=== PATIENT | male | born 1960 | race Caucasian/White ===

== ENCOUNTER → 2020-09-15 | Outpatient (CLI) | payer OTHER, SELFPAY | END | disposition home or self-care (01) | PROVIDERS: Visit Provider Urology | DX: N45.4 Abscess of epididymis or testis (principal) | CPT/HCPCS: 87070; 87077; 87186; 87205 ==

== ENCOUNTER → 2023-02-05 | Outpatient (CLI) | payer OTHER, SELFPAY ==
--- NOTE | 2023-02-05 14:51 | VDLE_ITS ---
Reason For Study: Left leg pain RIGHT LEFT CFV is compressible, spontaneous, phasic, GSV is normal. competent and demonstrates normal Acute deep vein thrombosis is noted in the augmentation. left CIV, EIV, CFV and FV prox-mid. It is Procedure NONCOMPRESSIBLE and dilated. Minimal venous This is a venous duplex using B-mode, color flow noted. flow and spectral Doppler. FV distal is compressible. Exam performed in department. POP V is compressible, spontaneous, phasic, A preliminary report was called and/or faxed competent and demonstrates normal to [facility] [employer]. augmentation. T/P Trunk is compressible. PTV is compressible. LT PerV is compressible. VL/Venous Duplex US, Unilateral Interpretation Summary Acute deep vein thrombosis is noted in the left external iliac vein, common fem oral vein, femoral vein. Ordering Physician: Ryan Ceja Performed By: Brittany Keller RVT
== END | disposition home or self-care (01) ==
PROVIDERS: Referring Provider Surgery Trauma Surgery; Visit Provider Surgery Trauma Surgery
DX: I82.422 Acute embolism and thrombosis of left iliac vein (principal)
CPT/HCPCS: 93971

== ENCOUNTER → 2023-02-07 | Outpatient (CLI) | payer OTHER, SELFPAY ==
--- NOTE | 2023-02-07 07:52 | CT_ITS ---
STUDY: CTA ABDOMEN AND PELVIS WITH CONTRAST REASON FOR EXAM: Male, 62 years old. Extensive DVT, assess extent -- with venous/delayed phase RADIATION DOSAGE (If Supplied By Facility): CTDIvol = ( 25.43 ) mGy, DLP = ( 2298.92 ) mGycm TECHNIQUE: Transaxial images were obtained from the dome of the diaphragm to the symphysis pubis without oral contrast. IV 100mL Isovue-370 was administered. Sagittal and coronal images were reconstructed. Individualized dose optimization techniques were used for this CT. COMPARISON: None. FINDINGS: The visualized lung bases are unremarkable. Coronary artery calcification. There is decreased attenuation of the liver consistent with steatosis. There is evidence of a pneumobilia in the left intrahepatic biliary ducts in keeping with prior cholecystectomy and possible common bile duct exploration. There are surgical clips in the gallbladder fossa consistent with a prior cholecystectomy. Normal spleen. Normal pancreas. Normal bilateral adrenal glands. 1.2 cm cyst in the anterior upper aspect of the right kidney. There is a 2.3 cm x 2.6 cm cyst in the upper pole of the left kidney. There is a 1.7 cm cyst in the anterior lower pole of the left kidney. There is a small hiatal hernia. Normal small intestine. Surgical anastomosis is seen in the sigmoid colon in keeping with the patient''s history of prior resection for diverticulitis. The appendix is visualized and appears normal. There is scattered atherosclerotic calcification of the abdominal aorta, without a demonstrated aneurysm. Normal inferior vena cava. Normal retroperitoneum. Mild degree of diffuse bladder wall thickening although the bladder is not completely distended. There are prostatic calcifications. There is a 2.2 cm x 1.9 cm heterogeneous soft tissue mass in the left inguinal region. There are degenerative changes of the visualized lumbar spine. CT/CTA Abd/Pelvis W/WO Contrast IMPRESSION: 2.2 cm x 1.9 cm heterogeneous soft tissue mass in the left inguinal region. Small bilateral inguinal lymph nodes. Bilateral renal cysts. Diffuse fatty infiltration of the liver. Status post cholecystectomy. Electronically Signed: Julio Cesar Acuña MD at 9:52 EST ,
[2023-02-07 08:36] LABS: CREATININE FINGERSTICK < 1.0 mg/dL (0.70-1.30); EGFR FINGERSTICK > 60.0000 mL/min (>60)
== END | disposition home or self-care (01) ==
PROVIDERS: Referring Provider Surgery Trauma Surgery; Visit Provider Surgery Trauma Surgery
DX: I82.429 Acute embolism and thrombosis of unspecified iliac vein (principal)
CPT/HCPCS: 74174; Q9967

== ENCOUNTER 2023-02-12 13:55 | Observation (INO) | payer OTHER, SELFPAY ==
--- NOTE | 2023-02-07 07:54 | EKG12_ITS ---
Test Reason : PRE OP Blood Pressure : / mmHG Vent. Rate : 059 BPM Atrial Rate : 059 BPM P-R Int : 188 ms QRS Dur : 108 ms QT Int : 410 ms P-R-T Axes : 061 -45 039 degrees QTc Int : 405 ms Sinus bradycardia Left axis deviation Abnormal ECG Confirmed by PAUL SANDERSON, SHIVAM ([id number]), editor sound LICHA GARCIA ([id number]) on 02/11/2023 1:56:36 P M Referred By: Ryan Ceja Confirmed By:TERRA MILLER MD
[2023-02-07 09:06] LABS: Hematocrit 42.7 % (40-54); Hemoglobin 13.5 g/dL (13.0-16.5); Mean Corp Hgb Conc 31.6 g/dL (32-36); Mean Corpuscular Hgb 29.8 pg (27.0-32.0); Mean Corpuscular Volume 94.3 fL (80-94); Mean Platelet Vol. 9.2 fl (6.2-12.0); Platelet Count 275 K/mm3 (150-450); RBC Distribution Width CV 13.3 % (11.6-14.6); Red Blood Count 4.53 M/mm3 (4.6-6.2); White Blood Count 6.1 K/mm3 (4.4-11.0)
[2023-02-07 10:11] LABS: Thyroid Stim Hormone (TSH) 1.36 uIU/mL (0.358-3.74)
[2023-02-07 10:19] LABS: Creatinine, Serum 1.19 mg/dL (0.70-1.30); EST Glomerular Filtration Rate 66 mL/min (>60); Est Glom Filt Rate - Afr Amer 80 mL/min (>60)
[2023-02-12] VITALS (14 sets, daily range): BP systolic 127–169; BP diastolic 66–94; PULSE 61–78; RESP 16–18; TEMP 36.1–37; O2SAT 94–99; BMI 31.1
[2023-02-12] MEDS: Lactated Ringers 1,000 ML 15 ML IV (06:36)
[2023-02-12 09:48] LABS: Anion Gap 2 (5-15); BUN 16 mg/dL (7-18); BUN/Creat Ratio 14.7 RATIO (10-20); Calcium,Total 9.9 mg/dL (8.5-10.1); Chloride 113 mmol/L (98-107); Creatinine, Serum 1.09 mg/dL (0.70-1.30); EST Glomerular Filtration Rate 73 mL/min (>60); Est Glom Filt Rate - Afr Amer 88 mL/min (>60); Estimated Creatinine Clearance 82.74 ml/min; Glucose 95 mg/dL (74-106); Potassium 4.4 mmol/L (3.5-5.1); Sodium Level 141 mmol/L (136-145)
[2023-02-12] MEDS: HEPARIN/D5w 25,000 UNITS 25,000 UNITS/250 ML IV.SOLN. 5 UNITS CONT INF (14:00)
--- NOTE | 2023-02-12 14:08 | PCM.OPRPT ---
Report of Operation Date of Procedure: 02/12/23 Pre-Operative Diagnosis: left iliac-femoral DVT Post-Operative Diagnosis: same Surgery/Procedure Performed:: Venogram IVC, SVC, left lower extremity IVUS IVC, bilateral common iliac, bilateral external iliac veins, left common femoral/femoral vein percutaneous mechanical thrombectomy left common iliac/external iliac/common femoral/femoral veins angioplasty stent left common/external iliac veins, left common femoral vein Surgeon: Ryan Ceja Type of Anesthesia: General Estimated Blood Loss (mL): 300 Description of Procedure: HPI: Patient is a 62-year-old male with extensive left lower extremity DVT that initially presented in September 2022. He initially was treated with anticoagulation alone with no resolution of his symptoms. He underwent attempted percutaneous thrombectomy and stenting at outside facility which was not successful at crossing the occlusions. He is presented here for second opinion efforts to treat his now chronic venous occlusive disease. He is taken now for venogram with possible mechanical thrombectomy and stenting. Description of procedure: Upon obtaining informed consent and verification correct patient procedure site patient was taken to the [facility] where he was placed under general esthesia. He was then positioned prepped and draped in usual fashion timeout is performed. Under also guidance the left femoral vein was accessed in retrograde fashion in the distal thigh with a micropuncture needle wire. This then exchanged for micropuncture sheath through which injection left lower extremity venogram was performed which revealed satisfactory placement in a highly diseased femoral vein with significant chronic thrombus and webbing. Through the micropuncture sheath a stiff Glidewire was advanced and the micropuncture sheath exchanged out for a 6 [place] Brite tip sheath. Next under outside guidance the right internal jugular vein was accessed with a micropuncture needle wire which was then exchanged out for micropuncture sheath. Through the micropuncture sheath a Bentson wire was advanced and under fluoroscopic guidance advanced into the inferior vena cava. Micropuncture sheath was then exchanged for a short 5 [place] sheath through which a Omni Flush catheter was advanced into the right common iliac vein. From this position a digital subtraction inferior vena cava venogram was performed which revealed normal caliber widely patent inferior vena cava with no sign of any acute or chronic thrombus. There was no visualization of the confluence though there was caliber change in the normal anatomic position for the IVC confluence. Through the Omni Flush catheter a short tip Amplatz wire was advanced and the Omni Flush and 5 [place] sheath exchanged out for an 8 [place] sheath. Next intravascular ultrasound probe was advanced and recorded pullback of the right external iliac vein, right common iliac vein, inferior vena cava, superior vena cava was performed. This confirmed patent vena cava and normal caliber right iliac veins with no significant compression or any evidence of thrombus. This also helped further identify the location of the confluence of the iliac veins of the vena cava. This point the patient was heparinized and repeat doses performed based on ACT results. Through the left femoral 6 [place]ian sheath a stiff Glidewire and quick cross catheter were used to traverse the subtotal occlusion segments of femoral vein until the common femoral vein was encountered which was totally occluded with significant collateral branches emptying through the pelvis. Ultimately her navigate across this total occlusion and advanced into the external leg vein followed by successful navigation to the common iliac vein and ultimately inferior vena cava. We were able to confirm presence within the vena cava with intravascular shunt probe via the IJ access site and entry at what we had suspected was the iliac vein confluence. Next the entirety of the length of the common iliac, external, common femoral, femoral vein was balloon angioplastied with a 4 mm noncompliant balloon in order to create channel enough to advance the intravascular sound probe. Next the intravascular probe is advanced over the wire and recorded pullback of the inferior vena cava, left common iliac vein, left external vein, left common femoral vein, left femoral vein was performed. This confirmed position within the true lumen of the primary vessels with no exit into any side branches or collaterals. The also revealed and further confirmed the significant chronic thrombus throughout with segments of total occlusion in some segments of subtotal occlusion with significant webbing and wall thickening. There is felt that this would be an appropriate case for the Inari Revcore mechanical thrombectomy device designed for chronic thrombus. In order to facilitate device passage the vessels were successively dilated with 8 mm followed by 10 mm noncompliant angioplasty balloons. Next the rev core device was advanced into the inferior vena cava and engaged across the entirety of the length of the area of chronic thrombus. After multiple passes with increasing diameter with each pass repeat venography revealed significant luminal gain. Intravascular ultrasound probe was then readvanced and recorded pullback performed which revealed significant luminal gain and resolution of some of the chronic thrombus however there was some segments with very resistant thrombus that did not extract with device. The Inari clot retriever bold was then advanced into the vena cava and used to further perform thrombectomy of the treated segment with some chronic thrombus returned. Repeat imaging confirmed some improvement with some continued residual chronic thrombus adherent particularly in the external iliac and common femoral veins as well as compression at the superiormost aspect of the left common iliac vein. It was felt these would respond well to angioplasty and stenting so a Bard Venovo 14 x 120 was advanced in the position with placement just cephalad to the profunda vein confluence and satisfactory coverage of the distalmost aspect of the residual disease segment. This is then deployed and then postdilated with a 10 mm angioplasty balloon. Next a Bard Venovo 16 x 120 is advanced in position with satisfactory overlap and cephalad extent at the IVC confluence. This was then deployed and postdilated with a 12 mm angioplasty balloon followed by 40 mm angioplasty balloon. Repeat venogram revealed satisfactory resolution of the chronic disease and compression of the IVC confluence. The intravascular shunt probe was then readvanced and recorded pullback performed which revealed for the most part satisfactory stent wall position with adequate stent expansion. In the common femoral vein there was some continued compression from chronic thrombus at this was repeat angioplastied with a 12 mm angioplasty balloon with satisfactory resolution. Completion venogram revealed brisk contrast transit across the stented segment with no further filling of pelvic wall collaterals as outflow for the leg. This was significantly improved over the initial imaging obtained. Radiographic interpretation: Superior vena cava normal caliber no evidence of acute or chronic thrombus or any significant luminal abnormalities. Inferior vena cava normal caliber and patent with no compression evidence of thrombus. Right external and common iliac veins patent with no significant compression or thrombus. Left femoral vein, common femoral vein, external iliac vein, common iliac vein with chronic thrombus and significant webbing throughout. Total occlusion of the common femoral vein with left lower extremity venous outflow via pelvic wall collaterals. Significant collaterals in the proximal thigh that filled into the profunda vein bypassing disease segment of femoral vein. Resolution of common iliac, external iliac, common femoral stenosis from compression and chronic thrombus with no extravasation or dissection and no residual stenosis after intervention. Brisk contrast transit crossing the stented segment as well as the contralateral iliac vein. Grafts/Implants Used: Bard Venovo [id number], Bard Venovo [id number]
--- NOTE | 2023-02-12 14:59 | CRPHASE1 ---
Patient Communication Patient Information PHII Cardiac Rehab Discussed with Patient:: Yes Guide to Cardiac Rehab Given to Patient:: Yes Cardiac Rehab Facility Choice List Given to Patient:: Yes Communication to Cardiac Rehab Superintendent Production:: [facility] Phase II Cardiac Rehab:: Yes Sessions:: 36 sessions - 3 days/wk, 12 weeks Cardiac Rehabilitation Info Program Information Cardiac Rehabilitation Program Information: Cardiac Rehab The cardiac rehab team at [facility] consists of highly skilled exercise physiologists, nurses, respiratory therapists and physicians working together with you. Our purpose is to help you have a full recovery and achieve the goals you set for yourself. Over the years many of our patients have returned to activities they assumed they would never do again! We can help restore your confidence and motivation to make lifestyle changes that can have a significant impact on your health and quality of life! We can help answer questions and concerns you may have about exercise, lifestyle, medications, diet, stress and anxiety which are common following a hospitalization. WE monitor ECG and vital signs during exercise and discuss your progress with you and report to your physician(s). Cardiac Rehab is proven to help reduce readmissions, improve functional capacity and lower recurrence of problems with your heart. Our Cardiac Rehab program is Certified by the [place] [employer]monary [employer] (AACVPR) and Accredited by the [place] [employer] through our [facility]. You can contact us at . We invite you to call us with your questions or to get started in our program. If you have other questions or concerns be sure to ask your physician/provider during your follow-up visit. WE look forward to seeing you!
--- NOTE | 2023-02-12 15:00 | CRPH1.INSTRU ---
General Education Discussed with Patient CAD and cardiac anatomy and function:: Patient communicates acknowledgment Explanation of diagnoses and procedures:: Patient communicates acknowledgment Sign/Symptoms of MS:: Patient communicates acknowledgment Antiplatelet therapy: Patient communicates acknowledgment Proper use of NTG-SL: Patient communicates acknowledgment Emergency procedures and activation of EMS: Patient communicates acknowledgment Compliance of all prescribed medications: Patient communicates acknowledgment Smoking Risk Factors Patient Nicotine/Smoking Risk Factors Are:: Non-smoker Dyslipidemia Risk Factors Patient Dyslipidemia Risk Factors Are:: Total Cholesterol, Triglycerides, HDL and LDL Recommendations Recommendations Include:: Lipid profile provided, Reviewed NCEP/ATP guidelines and Therapeutic Lifestyle Change dietary guidelines Response Code Dyslipidemia Response Code:: Patient communicates acknowledgment Overweight/Obesity Risk Factors Patient Overweight/Obesity Risk Factors Are:: Obesity - > or = 30 Recommendations Recommendations Include:: Weight loss of 5-10%, Reduced calorie diet and Exercise 5-7 times/week Response Code Overweight/Obesity:: Patient communicates acknowledgment Hypertension Risk Factors Patient Hypertension Risk Factors Are:: No documented hx of HTN Diabetes Risk Factors Patient Diabetes Risk Factors Are:: No documented hx of diabetes Metabolic Syndrome Risk Factors Patient Metabolic Syndrome Risk Factors Are [3 of 5]:: Fasting blood sugar > 100 mg/dL, Waist circumference > 35 [female] or 40 [male], High triglyceride >150 and Low HDL <40 [male] or < 50 [female] Recommendations Recommendations Include:: Reinforce compliance to risk factor modifications and Encouraged follow-up with Primary Care Physician Response Code Metabolic Syndrome Response Code:: Patient communicates acknowledgment Sedentary Risk Factors Patient Sedentary Risk Factors Are:: Lack of regular exercise Recommendations Recommendations Include:: Aerobic exercise 5-7 times/week for 20-30 minutes continuously, Benefits of regular exercise, Discussed home walking program and Monitored Outpatient Cardiac Rehab Response Code Sedentary Response Code:: Patient communicates acknowledgment Stress Recommendations Recommendations Include:: Identification of stressors, and assessment of coping skills and Stress management techniques Response Code Stress Response Code:: Patient communicates acknowledgment
[2023-02-12] MEDS: 0.45% Normal Saline 1,000 ML 100 ML IV (17:23)
[2023-02-12] MEDS: HYDROmorphone Inj 0.2 MG/ML SYRINGE 0.200000000000000011 MG IV (18:32)
[2023-02-12] MEDS: 0.9% Saline Lock 10 ML Syringe IV ×2 (18:32→20:19)
[2023-02-12 19:15] LABS: Partial Thromboplast Time 48.7 Seconds (24.1-36.2)
[2023-02-12] MEDS: Ondansetron 4 MG/2 ML Vial IV (20:19)
[2023-02-12] MEDS: HEPARIN/D5w 25,000 UNITS 25,000 UNITS/250 ML IV.SOLN. 6 UNITS CONT INF (20:45)
[2023-02-13 01:09] VITALS: BP 140/70; PULSE 70; RESP 18; TEMP 36.8; O2SAT 97
[2023-02-13] MEDS: Aspirin 81 MG TAB.CHEW 162 MG PO (01:25)
[2023-02-13] MEDS: oxyCODONE 5 MG Tablet PO (01:25)
[2023-02-13] MEDS: Clopidogrel Bisulfate 300 MG Tablet PO (01:25)
[2023-02-13] MEDS: 0.45% Normal Saline 1,000 ML 100 ML IV (03:00)
[2023-02-13 03:34] LABS: Absolute Lymphocyte Count 0.89 X10^3/uL (0.83-4.51); Absolute Neutrophil Count 5.5 X10^3/uL (2.0-7.7); Basophil# 0.02 X10^3/uL; Basophil% 0.3 % (0-1); Eosinophil# 0.06 X10^3/uL; Eosinophils% 0.8 % (0-5); Hemoglobin 12.3 g/dL (13.0-16.5); Lymphocyte # 0.89 X10^3/ul (0.83-4.51); Lymphocyte % 12.6 % (19-41); Mean Corp Hgb Conc 32.4 g/dL (32-36); Mean Corpuscular Volume 92.7 fL (80-94); Mean Platelet Vol. 9.6 fl (6.2-12.0); Monocyte% 8.5 % (0-10); NRBC Flagged by Analyzer 0 % (0-5); Neutrophil # 5.47 X10^3/uL (2.7-7.7); Neutrophil % 77.5 % (47-70); Platelet Count 202 K/mm3 (150-450); RBC Distribution Width CV 13.4 % (11.6-14.6); RBC Distribution Width SD 45.6 fl (35.1-43.9); White Blood Count 7.1 K/mm3 (4.4-11.0)
[2023-02-13 03:52] LABS: Partial Thromboplast Time 37.4 Seconds (24.1-36.2)
[2023-02-13 04:14] LABS: ACT Activated Clotting Time 217 sec (74-137)
[2023-02-13 04:15] LABS: ACT Activated Clotting Time 201 sec (74-137)
[2023-02-13 04:15] LABS: ACT Activated Clotting Time 217 sec (74-137)
[2023-02-13 04:16] LABS: ACT Activated Clotting Time 212 sec (74-137)
[2023-02-13 04:20] VITALS: BP 131/71; PULSE 65; RESP 18; TEMP 36.5; O2SAT 96
[2023-02-13] MEDS: Acetaminophen 500 MG Tablet 1000 MG PO (05:04)
[2023-02-13] MEDS: Levothyroxine 100 MCG Tablet PO (05:05)
[2023-02-13 08:20] VITALS: BP 133/75; PULSE 65; RESP 18; TEMP 36.5; O2SAT 100
[2023-02-13] MEDS: Clopidogrel Bisulfate 75 MG Tablet PO (08:31)
[2023-02-13] MEDS: Fenofibrate 145 MG Tablet PO (08:31)
[2023-02-13] MEDS: Aspirin E.C. 81 MG Tablet PO (08:31)
[2023-02-13 09:50] VITALS: O2SAT 97
--- NOTE | 2023-02-13 12:18 | PCM.PN.SRG ---
Subjective Subjective Mr. Blanca is s/p venogram with thrombectomy and L iliac vein stenting performed under general anesthesia yesterday. This morning he is feeling good. Had nausea overnight which has resolved. He has some soreness at the access sites, but not too bothersome. No bleeding. Voiding without difficulty. He denies any numbness or pain into left foot. Objective Data Objective Data Vital Signs: Vital Signs Temp Pulse Resp BP Pulse Ox O2 Del Method 97.7 F L 65 18 133/75 H 100 Room Air 02/13/23 08:20 02/13/23 08:20 02/13/23 08:20 02/13/23 08:20 02/13/23 08:20 02/13/23 08:20 Oxygen Delivery Method Room Air Weight: 242 lb 8.136 oz Body Mass Index (BMI) 31.1 Intake & Output: Intake and Output for Last 24 Hours 02/11/23 02/12/23 02/13/23 23:59 23:59 23:59 Intake Total 205.50 / 205.50 1584.84 / 1584.84 Output Total 650 / 650 300 / 300 Balance -444.50 / -444.50 1284.84 / 1284.84 Lab / Micro Data 02/13/23 02:50 02/12/23 09:30 Labs: Laboratory Results - last 24 hr 02/12/23 10:15: Activated Clotting Time 217 H 02/12/23 10:55: Activated Clotting Time 201 H 02/12/23 11:30: Activated Clotting Time 217 H 02/12/23 12:15: Activated Clotting Time 212 H 02/12/23 17:25: APTT 72.0 H 02/12/23 18:50: APTT 48.7 H 02/13/23 02:50: WBC 7.1, RBC 4.10 L, Hgb 12.3 L, Hct 38.0 L, MCV 92.7, MCH 30.0, MCHC 32.4, RDW Std Deviation 45.6 H, RDW Coeff of Mookie 13.4, Plt Count 202, MPV 9.6, Immature Gran % (Auto) 0.300, Neut % (Auto) 77.5 H, Lymph % (Auto) 12.6 L, [place] % (Auto) 8.5, Eos % (Auto) 0.8, Baso % (Auto) 0.3, Absolute Neuts (auto) 5.5, Absolute Lymphs (auto) 0.89, Nucleated RBC % 0, APTT 37.4 H 02/13/23 11:22: APTT 47.0 H Physical Exam Const alert, oriented x3 and no apparent distress General Appearance: cooperative and comfortable Eyes EOMs intact bilaterally General Eye: normal appearance of both eyes Neck full ROM Neck Narrative: Right IJ access site with minimal bruising and swelling. No bleeding, redness, warmth, drainage. General: normal visual inspection Resp normal respiratory effort Effort and Inspection: able to speak in complete sentences; Negative for respiratory distress, labored, stridor, retractions or audible wheezes Cardio regular rate and regular rhythm Extremity Extremity Narrative: R groin access site with mild bruising, minimal swelling. No erythema, warmth, drainage, bleeding. L thigh access site with no significant bruising, swelling, redness, warmth, drainage, bleeding. Neuro oriented x3, CN's II-XII intact bilaterally, moves all extremities and no focal motor deficits Speech: speech normal Psych mental status grossly normal, affect normal, speech normal and activity/motor behavior normal Assessment & Plan Assessment/Plan (1) Ileofemoral deep vein thrombosis: QUALIFIERS: Laterality: left Qualified Code(s): I82.422 - Acute embolism and thrombosis of left iliac vein PLAN: Patient is doing well this morning. No bleeding from access sites while on therapeutic heparin, sutures are intact. He reports his leg already seems less swollen and overall feeling good. Minimal pain at the access site. Voiding without difficulty and tolerating diet. Will d/c heparin now. Restart Xarelto in 1 hour and then can discharge home after that. He has outpatient follow-up scheduled in the office.
[2023-02-13 12:20] VITALS: BP 123/67; PULSE 55; RESP 18; TEMP 36.6; O2SAT 98
--- NOTE | 2023-02-13 13:45 | DS.PCM_ITS ---
Providers Date of Admission: 02/12/23 Primary Care Physician: CHERYL BASILIO Reason For Visit: POSSIBLE THROMDECTOMY Diagnosis Discharge Diagnosis (1) Ileofemoral deep vein thrombosis: Status: Acute Code(s): I82.429 - Acute embolism and thrombosis of unspecified iliac vein Qualifiers: Laterality: left Qualified Code(s): I82.422 - Acute embolism and thrombosis of left iliac vein Medications at Discharge Home Medications cabergoline 0.5 mg tablet 0.5 mg PO 2XW 01/30/23 fenofibrate 160 mg tablet 160 mg PO DAILY 01/30/23 levothyroxine 100 mcg capsule 100 mcg PO DAILY 01/30/23 niacin 1,000 mg tablet,extended release 1,000 mg PO QHS 01/30/23 rivaroxaban 20 mg tablet 20 mg PO QPM 01/30/23 rosuvastatin 10 mg tablet (Crestor) 10 mg PO DAILY 01/30/23 tadalafil 5 mg tablet 5 mg PO DAILY 01/30/23 tamsulosin 0.4 mg capsule 0.4 mg PO DAILY 01/30/23 aspirin 81 mg tablet,delayed release 81 mg PO BREAKFAST #30 tabs 02/13/23 clopidogrel 75 mg tablet 75 mg PO DAILY #30 tabs 02/13/23 oxycodone 5 mg tablet 5 mg PO Q8H PRN PRN Pain Score 4-10 2 days #6 tabs 02/13/23 Hospital Course Operations - (Venogram with thrombectomy and iliac vein stenting) Summary of Care Provided Hospital Course: Mr. Blanca is a 62 y/o male who underwent venogram with thrombectomy and iliac vein stenting on 02/12/2023 to address iliofemoral DVT. He tolerated the procedure well. Postoperatively, he was routinely kept for observation and for heparin bridge back to Xarelto. He has remained hemodynamically stable. Following iliac vein stenting, he was initiated on ASA and Plavix which he will continue to take in addition to his home Xarelto. He tolerated therapeutic heparin with no bleeding complications and was transitioned back to Xarelto. The access sites were all satisfactory in appearance. He has been able to tolerate a normal diet and void without difficulty. His postoperative pain is well controlled. He is medically stable for discharge home. He has scheduled outpatient follow-up. Physical Exam Const alert, oriented x3 and no apparent distress General Appearance: cooperative and comfortable Eyes EOMs intact bilaterally General Eye: normal appearance of both eyes Neck full ROM Neck Narrative: Right IJ access site with suture intact and minimal bruising and swelling. No bleeding, redness, warmth, drainage. General: normal visual inspection Resp normal respiratory effort Effort and Inspection: able to speak in complete sentences; Negative for respiratory distress, labored, stridor, retractions or audible wheezes Cardio regular rate and regular rhythm Extremity Extremity Narrative: R groin access site with suture intact and mild bruising, minimal swelling. No erythema, warmth, drainage, bleeding. L thigh access site with suture intact and no significant bruising, swelling, redness, warmth, drainage, bleeding. Neuro oriented x3, CN's II-XII intact bilaterally, moves all extremities and no focal motor deficits Speech: speech normal Psych mental status grossly normal, affect normal, speech normal and activity/motor behavior normal Weight / BMI Weight Weight: 242 lb 8.136 oz Body Mass Index (BMI) 31.1 ABG / Lab / Microbiology Data 02/13/23 02:50 02/12/23 09:30 Laboratory: Laboratory Results - last 24 hr 02/12/23 10:15: Activated Clotting Time 217 H 02/12/23 10:55: Activated Clotting Time 201 H 02/12/23 11:30: Activated Clotting Time 217 H 02/12/23 12:15: Activated Clotting Time 212 H 02/12/23 17:25: APTT 72.0 H 02/12/23 18:50: APTT 48.7 H 02/13/23 02:50: WBC 7.1, RBC 4.10 L, Hgb 12.3 L, Hct 38.0 L, MCV 92.7, MCH 30.0, MCHC 32.4, RDW Std Deviation 45.6 H, RDW Coeff of Mookie 13.4, Plt Count 202, MPV 9.6, Immature Gran % (Auto) 0.300, Neut % (Auto) 77.5 H, Lymph % (Auto) 12.6 L, Travis % (Auto) 8.5, Eos % (Auto) 0.8, Baso % (Auto) 0.3, Absolute Neuts (auto) 5.5, Absolute Lymphs (auto) 0.89, Nucleated RBC % 0, APTT 37.4 H 02/13/23 11:22: APTT 47.0 H D/C Instructions Discharge Diet: No restrictions May shower in (days): 1 Weight Bearing Status: Weight bearing as tolerated Lifting Restricted to (Lbs): 20 Lifting Restrictions: Do not lift greater than 20 pounds for 2 weeks Call your doctor if your incision/area has: Sudden Increased Bleeding, Increased Pain/ Swelling and Foul Smelling Discharge Call your doctor if you observe: Fever of 101 or Higher and Uncontrolled pain Additional Instructions: You have 3 access sites: right neck, right groin, and left thigh. The access sites were closed with 1 suture each. The sutures should remain in place for at least 1 week. It is okay to leave these sites open to air. You may shower. It is okay for soap and water to rinse over these sites, pat to dry. Do not submerge the access sites in water such as to take a bath, go swimming, etc for 2 weeks. Do not lift greater than 20 pounds for 2 weeks. Otherwise, you may proceed with activity as tolerated. You are to continue taking Xarelto 20mg tablet once daily as you had been prior to the procedure. Please call the office if/when you need a refill. We have added 2 new medications: Aspirin 81mg tablet to be taken by mouth once daily and Plavix 75mg tablet to be taken by mouth once daily. The Aspirin 81mg tablets can be purchased over the counter. The Plavix 75mg tablets are a prescription which has been sent to your pharmacy. You are to continue to take the Xarelto, Plavix, and Aspirin. You have a follow-up appointment in the office on 03/06/23. The office will call you to schedule a 1 week follow-up to have your sutures removed. If you have any questions/concerns or if you need to change your appointment time please contact the office at [phone]. Meaningful Use Info Meaningful Use Diagnoses (Choose all that apply): VTE VTE Anticoag overlap given w/in hospital stay or rx'd at dc?: Yes Pt receive overlap for 5 days?: Yes Discharge Plan Admission Admit Date/Time: 02/12/23 13:55 Primary Reason for Your Visit: Venogram with thrombectomy and iliac vein stenting Attending Provider: Ryan Ceja Primary Care Provider: CHERYL BASILIO Consulting Providers: Fabio Day Instructions Additional Instructions / Restrictions: You have 3 access sites: right neck, right groin, and left thigh. The access sites were closed with 1 suture each. The sutures should remain in place for at least 1 week. It is okay to leave these sites open to air. You may shower. It is okay for soap and water to rinse over these sites, pat to dry. Do not submerge the access sites in water such as to take a bath, go swimming, etc for 2 weeks. Do not lift greater than 20 pounds for 2 weeks. Otherwise, you may proceed with activity as tolerated. You are to continue taking Xarelto 20mg tablet once daily as you had been prior to the procedure. Please call the office if/when you need a refill. We have added 2 new medications: Aspirin 81mg tablet to be taken by mouth once daily and Plavix 75mg tablet to be taken by mouth once daily. The Aspirin 81mg tablets can be purchased over the counter. The Plavix 75mg tablets are a prescription which has been sent to your pharmacy. You are to continue to take t he Xarelto, Plavix, and Aspirin. You have a follow-up appointment in the office on 03/06/23. The office will call you to schedule a 1 week follow-up to have your sutures removed. If you have any questions/concerns or if you need to change your appointment time please contact the office at [phone]. Discharge Orders/Prescriptions Prescriptions: New clopidogrel 75 mg Tablet 75 mg PO DAILY Qty: 30 2RF aspirin 81 mg Tablet,Delayed Release (Dr/Ec) 81 mg PO BREAKFAST Qty: 30 0RF oxycodone 5 mg Tablet 5 mg PO Q8H PRN PRN (Reason: Pain Score 4-10) 2 Days Qty: 6 0RF Continued cabergoline 0.5 mg tablet 0.5 mg PO 2XW Rx Instructions: take 1 1/2 tab by mouth on and Sat fenofibrate 160 mg tablet 160 mg PO DAILY levothyroxine 100 mcg capsule 100 mcg PO DAILY niacin 1,000 mg tablet extended release 1,000 mg PO QHS rivaroxaban 20 mg tablet 20 mg PO QPM Rx Instructions: must administer with evening meal rosuvastatin [Crestor] 10 mg tablet 10 mg PO DAILY tadalafil 5 mg tablet 5 mg PO DAILY tamsulosin 0.4 mg capsule 0.4 mg PO DAILY Other Ambulatory Orders: 12 Lead EKG (Routine) Timeframe: 20230207 Location: None Selected Ordered By: Dr. Fabio Day Disposition Disposition (needs filled in before D/C Order can be placed): Home, Self Care
[2023-02-13] MEDS: Rivaroxaban 20 MG Tablet PO (15:01)
--- NOTE | 2023-02-13 15:55 | PHA.DC_ITS ---
Pharmacy [facility] has performed discharge medication reconciliation and counseling for this patient. 1. ASPIRIN 81MG PO DAILY 2. CLOPIDOGREL 75MG PO DAILY 3. OXYCODONE 5MG PO Q8H PRN PAIN The patient's discharge medication list was reviewed for discrepancies and discrepancies were resolved. The patient was counseled on the following discharge medications and changes in medications for homegoing were reviewed. The Reason for Use, instructions for use, and potential side effects were reviewed for all new medications. The patient's questions regarding all of their medications were answered. The patient was able to verbally demonstrate an understanding of their discharge medications. Medications at Discharge Home Medications cabergoline 0.5 mg tablet 0.5 mg PO 2XW 01/30/23 fenofibrate 160 mg tablet 160 mg PO DAILY 01/30/23 levothyroxine 100 mcg capsule 100 mcg PO DAILY 01/30/23 niacin 1,000 mg tablet,extended release 1,000 mg PO QHS 01/30/23 rivaroxaban 20 mg tablet 20 mg PO QPM 01/30/23 rosuvastatin 10 mg tablet (Crestor) 10 mg PO DAILY 01/30/23 tadalafil 5 mg tablet 5 mg PO DAILY 01/30/23 tamsulosin 0.4 mg capsule 0.4 mg PO DAILY 01/30/23 aspirin 81 mg tablet,delayed release 81 mg PO BREAKFAST #30 tabs 02/13/23 clopidogrel 75 mg tablet 75 mg PO DAILY #30 tabs 02/13/23 oxycodone 5 mg tablet 5 mg PO Q8H PRN PRN Pain Score 4-10 2 days #6 tabs 02/13/23
[2023-02-13 16:20] VITALS: BP 125/68; PULSE 60; RESP 18; TEMP 36.6; O2SAT 99
== END 2023-02-13 17:38 | disposition home or self-care (01) ==
LOC: SDC 15:22 → PCU 15:22
PROVIDERS: Anesthesiology; Physician Assistant; Admitting Provider Surgery Trauma Surgery; Referring Provider Surgery Trauma Surgery; Visit Provider Surgery Trauma Surgery
DX: I82.422 Acute embolism and thrombosis of left iliac vein (principal); I82.412 Acute embolism and thrombosis of left femoral vein; Z79.899 Other long term (current) drug therapy; Z79.01 Long term (current) use of anticoagulants; Z79.890 Hormone replacement therapy; Z87.891 Personal history of nicotine dependence; E78.00 Pure hypercholesterolemia, unspecified; Z86.14 Personal history of Methicillin resistant Staphylococcus aureus infection; R00.1 Bradycardia, unspecified; R94.31 Abnormal electrocardiogram [ECG] [EKG]; I87.1 Compression of vein
CPT/HCPCS: 36005; 36010; 36415; 37187; 37238; 37239; 37252; 37253; 75820; 75825; 75827; 76937; 80048; 82565; 84443; 85025; 85027; 85347; 85730; 86850; 86900; 86901; 93005; 94668; 96365; 96366; 96375; 99252; C1725; C1753; C1757; C1769; C1894; J7120; Q9967; A4216; C1876; C1887; G0463; J2405

== ENCOUNTER → 2023-03-21 | Outpatient (CLI) | payer OTHER, SELFPAY ==
[2023-03-21 13:09] LABS: Cholesterol 153 mg/dL (200); High Density Lipoprotein 37 mg/dL; PSA,Total - Annual Screen 0.34 ng/mL (0.00-4.00); Triglycerides 141 mg/dL; Very Low Density Lipoprotein 28 mg/dL (5-40)
[2023-03-21 13:48] LABS: AST(SGOT) 21 U/L (15-37); Alanine Aminotransfer ALT/SGPT 23 U/L (16-61); Albumin, Serum 4.3 g/dL (3.2-5.0); Alkaline Phosphatase 57 U/L (45-117); Bilirubin, Direct 0.09 mg/dL (0.00-0.30); Globulin 3.7 g/dL (2.2-4.2)
[2023-03-21 13:51] LABS: Hemoglobin A1c 5.3 % (3.8-5.6)
== END | disposition home or self-care (01) ==
LOC: BIMLAB 09:37
PROVIDERS: PCP Nurse Practitioner; Referring Provider Nurse Practitioner; Visit Provider Nurse Practitioner
DX: K76.0 Fatty (change of) liver, not elsewhere classified (principal); E78.00 Pure hypercholesterolemia, unspecified; Z12.5 Encounter for screening for malignant neoplasm of prostate
CPT/HCPCS: 36415; 80061; 80076; 83036; 84153; G0103

== ENCOUNTER → 2023-05-09 | Outpatient (CLI) | payer OTHER, SELFPAY ==
[2023-05-09 16:15] LABS: Mucous, Urine 0 SEEN /hpf (<or=2+); Red Blood Cells-Urine 0 SEEN /hpf (0-5)
[2023-05-09 16:47] LABS: Color, Urine Yellow (Yellow); Glucose, Dipstick Normal (Normal); Ketone-Dipstick Negative (Negative); Leukocyte Esterase-Dipstick 25 /ul (Negative); Nitrite-Dipstick Negative (Negative); Occult Blood-Urine 10 /ul (Negative); Protein-Dipstick Negative (Negative); Specific Gravity, Urine 1.015 (1.002-1.030); Urine Bilirubin Dipstick Negative (Negative); Urine Clarity Clear (Clear); Urine Urobilinogen Normal (Normal); Urine pH 6.5 (5.0 - 8.0)
[2023-05-09 17:23] LABS: Bacteria RARE /hpf (None Seen); Squamous Epithelial Cells - UA 0-5 SEEN /hpf (0-5); White Blood Cells 0-5 SEEN /hpf (0-5)
== END | disposition home or self-care (01) ==
LOC: LAB.FUTURE 16:14 → LABSPEC 16:15
PROVIDERS: PCP Nurse Practitioner; Visit Provider Physician Assistant
DX: N23 Unspecified renal colic (principal)
CPT/HCPCS: 81001; 87077; 87086; 87088

== ENCOUNTER → 2023-05-28 | Outpatient (CLI) | payer OTHER, SELFPAY ==
[2023-05-28 10:54] LABS: Bacteria 0 SEEN /hpf (None Seen); Mucous, Urine 0 SEEN /hpf (<or=2+); Red Blood Cells-Urine 0 SEEN /hpf (0-5); White Blood Cells 0 SEEN /hpf (0-5)
[2023-05-28 12:28] LABS: Color, Urine Yellow (Yellow); Glucose, Dipstick Normal (Normal); Ketone-Dipstick Negative (Negative); Leukocyte Esterase-Dipstick Negative /ul (Negative); Nitrite-Dipstick Negative (Negative); Occult Blood-Urine Negative /ul (Negative); Protein-Dipstick 15 mg/dl (Negative); Specific Gravity, Urine 1.015 (1.002-1.030); Urine Bilirubin Dipstick Negative (Negative); Urine Clarity Clear (Clear); Urine Urobilinogen Normal (Normal)
[2023-05-28 12:38] LABS: Squamous Epithelial Cells - UA 0-5 SEEN /hpf (0-5)
== END | disposition home or self-care (01) ==
LOC: LABSPEC 10:52
PROVIDERS: PCP Nurse Practitioner; Referring Provider Nurse Practitioner; Visit Provider Nurse Practitioner
DX: R10.9 Unspecified abdominal pain (principal)
CPT/HCPCS: 81001; 87086

== ENCOUNTER → 2023-06-06 | Outpatient (CLI) | payer OTHER, SELFPAY ==
[2023-06-06 11:34] LABS: Bacteria 0 SEEN /hpf (None Seen); Mucous, Urine 0 SEEN /hpf (<or=2+); Red Blood Cells-Urine 0 SEEN /hpf (0-5); Squamous Epithelial Cells - UA 0 SEEN /hpf (0-5); White Blood Cells 0 SEEN /hpf (0-5)
[2023-06-06 12:05] LABS: Absolute Lymphocyte Count 0.81 X10^3/uL (0.83-4.51); Absolute Neutrophil Count 4.1 X10^3/uL (2.0-7.7); Basophil# 0.05 X10^3/uL; Basophil% 0.9 % (0-1); Eosinophils% 1.8 % (0-5); Hematocrit 45.6 % (40-54); Hemoglobin 14.9 g/dL (13.0-16.5); Lymphocyte # 0.81 X10^3/ul (0.83-4.51); Lymphocyte % 14.3 % (19-41); Mean Corp Hgb Conc 32.7 g/dL (32-36); Mean Corpuscular Hgb 28.9 pg (27.0-32.0); Mean Corpuscular Volume 88.5 fL (80-94); Mean Platelet Vol. 9.5 fl (6.2-12.0); Monocyte% 10.6 % (0-10); NRBC Flagged by Analyzer 0 % (0-5); Neutrophil # 4.08 X10^3/uL (2.7-7.7); Neutrophil % 71.7 % (47-70); Platelet Count 237 K/mm3 (150-450); RBC Distribution Width CV 13.5 % (11.6-14.6); RBC Distribution Width SD 43.7 fl (35.1-43.9); Red Blood Count 5.15 M/mm3 (4.6-6.2); White Blood Count 5.7 K/mm3 (4.4-11.0)
[2023-06-06 12:34] LABS: ALB/GLOB Ratio 1.1 RATIO (0.9-2.4); AST(SGOT) 20 U/L (15-37); Alanine Aminotransfer ALT/SGPT 19 U/L (16-61); Albumin, Serum 4.3 g/dL (3.2-5.0); Alkaline Phosphatase 53 U/L (45-117); Anion Gap 2 (5-15); BUN 17 mg/dL (7-18); BUN/Creat Ratio 13.3 RATIO (10-20); Calcium,Total 10.9 mg/dL (8.5-10.1); Chloride 109 mmol/L (98-107); Creatinine, Serum 1.28 mg/dL (0.70-1.30); EST Glomerular Filtration Rate 61 mL/min (>60); Est Glom Filt Rate - Afr Amer 73 mL/min (>60); Globulin 3.9 g/dL (2.2-4.2); Glucose 95 mg/dL (74-106); Potassium 4.3 mmol/L (3.5-5.1); Protein, Total 8.2 g/dL (6.4-8.2); Sodium Level 136 mmol/L (136-145)
[2023-06-06 15:50] LABS: Color, Urine Yellow (Yellow); Glucose, Dipstick Normal (Normal); Ketone-Dipstick Negative (Negative); Leukocyte Esterase-Dipstick Negative /ul (Negative); Nitrite-Dipstick Negative (Negative); Occult Blood-Urine Negative /ul (Negative); Protein-Dipstick Negative (Negative); Specific Gravity, Urine 1.015 (1.002-1.030); Urine Bilirubin Dipstick Negative (Negative); Urine Clarity Clear (Clear); Urine Urobilinogen Normal (Normal)
== END | disposition home or self-care (01) ==
LOC: BIMLAB 11:33
PROVIDERS: PCP Nurse Practitioner; Referring Provider Nurse Practitioner; Visit Provider Nurse Practitioner
DX: R10.9 Unspecified abdominal pain (principal)
CPT/HCPCS: 36415; 80053; 81001; 85025; 87086

== ENCOUNTER → 2023-06-10 | Outpatient (CLI) | payer OTHER, SELFPAY ==
[2023-06-10 15:41] LABS: Anion Gap 5 (5-15); BUN 20 mg/dL (7-18); BUN/Creat Ratio 16.8 RATIO (10-20); Calcium,Total 10.3 mg/dL (8.5-10.1); Chloride 107 mmol/L (98-107); Creatinine, Serum 1.19 mg/dL (0.70-1.30); EST Glomerular Filtration Rate 66 mL/min (>60); Est Glom Filt Rate - Afr Amer 80 mL/min (>60); Glucose 92 mg/dL (74-106); Potassium 4.1 mmol/L (3.5-5.1); Sodium Level 136 mmol/L (136-145)
== END | disposition home or self-care (01) ==
LOC: LAB 13:37
PROVIDERS: PCP Nurse Practitioner; Referring Provider Urology; Visit Provider Urology
DX: Z12.5 Encounter for screening for malignant neoplasm of prostate (principal); R10.84 Generalized abdominal pain
CPT/HCPCS: 36415; 80048

== ENCOUNTER → 2023-06-18 | Outpatient (CLI) | payer OTHER, SELFPAY ==
--- NOTE | 2023-06-18 11:50 | US_ITS ---
STUDY: RENAL ULTRASOUND - COMPLETE REASON FOR EXAM: Male, 62 years old. ABD PAIN TECHNIQUE: Ultrasound evaluation of the kidneys was performed with real-time and static dale-scale imaging. COMPARISON: None. FINDINGS: RIGHT KIDNEY: Normal location of the right kidney, which is normal in size. The right kidney measures 11.5 cm x 6.1 cm x 6.1 cm. There is a normal cortex of the right kidney. The renal cortex measures 1.3 cm. 3 renal cysts are seen. The largest measures 1.7 cm x 1.7 cm x 1.3 cm. There are no right renal calculi. There is no right hydronephrosis. DISTAL RIGHT URETER: There is non-visualization of the distal right ureter. There is no demonstrated right ureterovesical junction calculus. There is a visualized right ureteral jet. LEFT KIDNEY: Normal location of the left kidney, which is normal in size. The left kidney measures 12 cm x 4.3 cm x 5.7 cm. There is a normal cortex of the left kidney. The renal cortex measures 2 cm. 3 renal cysts are seen. The largest measures 2 cm x 2.1 sided by 2.4 cm. There are no left renal calculi. There is no left hydronephrosis. DISTAL LEFT URETER: There is non-visualization of the distal left ureter. There is no demonstrated left ureterovesical junction calculus. There is a visualized left ureteral jet. BLADDER: The distended urinary bladder has a volume of 108 ml. There is a normal wall thickness of the distended urinary bladder. There is no demonstrated mass within the urinary bladder. There are no demonstrated bladder calculi. US/Kidney and Bladder IMPRESSION: Bilateral renal cysts. Electronically Signed: Julio Cesar Acuña MD at 15:41 EDT ,
== END | disposition home or self-care (01) ==
LOC: US 11:50
PROVIDERS: PCP Nurse Practitioner; Referring Provider Urology; Visit Provider Urology
DX: R10.84 Generalized abdominal pain (principal)
CPT/HCPCS: 76770

== ENCOUNTER → 2023-06-21 | Outpatient (CLI) | payer OTHER, SELFPAY ==
--- NOTE | 2023-06-21 07:26 | CT_ITS ---
STUDY: CT ABDOMEN AND PELVIS WITH AND WITHOUT CONTRAST REASON FOR EXAM: Male, 62 years old. pyelonephritis , with urogram RADIATION DOSAGE (If Supplied By Facility): CTDIvol = ( 21.62 ) mGy, DLP = ( 4026.85 ) mGycm TECHNIQUE: Transaxial images were obtained from the dome of the diaphragm to the symphysis pubis without oral contrast. isovue 370 100 ml was administered. Sagittal and coronal images were reconstructed. Individualized dose optimization techniques were used for this CT. COMPARISON: Renal ultrasound 06/18/2023 FINDINGS: The visualized lung bases are unremarkable. The visualized portions of the heart are within normal limits. There is decreased attenuation of the liver consistent with steatosis. There are surgical clips in the gallbladder fossa consistent with a prior cholecystectomy. Normal spleen. Normal pancreas. Normal bilateral adrenal glands. Normal right kidney. Normal left kidney. Multiple bilateral small renal cysts with the largest measuring 2 cm in the upper pole left kidney. Normal visualized stomach. Normal small intestine. Suspect resection of the sigmoid colon with an anastomosis in the mid sigmoid colon. The appendix is visualized and appears normal. Normal abdominal aorta. Normal inferior vena cava. Vascular stent within the left external and common iliac veins. Normal retroperitoneum. Normal urinary bladder. There are prostatic calcifications. Normal abdominal wall. Mild levoscoliosis lumbar spine. CT/CT Abd/Pelvis W/WO Contrast IMPRESSION: No acute abnormality. Bilateral small renal cysts. Electronically Signed: Corby Packer MD at 0:17 EDT ,
== END | disposition home or self-care (01) ==
LOC: CT 07:24
PROVIDERS: PCP Nurse Practitioner; Referring Provider Nurse Practitioner; Visit Provider Nurse Practitioner
DX: R10.9 Unspecified abdominal pain (principal)
CPT/HCPCS: 74178; Q9967

== ENCOUNTER → 2023-07-03 | Outpatient (CLI) | payer OTHER, SELFPAY ==
--- NOTE | 2023-07-03 12:46 | VDLE_ITS ---
Reason For Study: LLE Swelling / HX DVT RIGHT LEFT CFV is compressible, spontaneous, phasic, Stent noted in prox CFV. competent and demonstrates normal Acute on Chronic deep vein thrombosis is augmentation. noted in the CFV. It is dilated and Procedure NONCOMPRESSIBLE. This is a venous duplex using B-mode, color Unable to visualize flow in pulsed wave or flow and spectral Doppler. color doppler within the vessel. Exam performed in department. FV is PARTIALLY COMPRESSIBLE with The exam was diagnostic. intraluminal echoes noted throughout. A preliminary report was called and/or faxed Diminished flows noted in pulsed wave and to Dr. Ceja. color doppler. POP V is PARTIALLY COMPRESSIBLE with intraluminal echoes noted throughout. Continuous flow noted in pulsed wave and color doppler. T/P Trunk is compressible. PTV is compressible. LT PerV is compressible. SFJ is INCOMPETENT and measures 0.63 cm. GSV proximal thigh measures 0.52 x 0.54 cm. GSV at knee measures 0.44 x 0.45 cm. GSV above knee is INCOMPETENT for greater than 0.5 seconds. GSV below knee is competent. SSV proximal calf is competent and measures 0.15 x 0.14 cm. VL/Venous Duplex US, Unilateral Interpretation Summary Acute on Chronic deep vein thrombosis is noted in the left common femoral vein. Chronic deep vein thrombosis noted in the left femoral vein, popliteal vein. Positive for reflux in the left saphenofemoral junction, great saphenous vein a diana the knee Ordering Physician: Dolly Clarke Referring Physician: Lyly Hale Performed By: Yanick Dixon, RVT
== END | disposition home or self-care (01) ==
LOC: CVS 12:45
PROVIDERS: PCP Nurse Practitioner; Referring Provider Physician Assistant; Visit Provider Physician Assistant
DX: M79.89 Other specified soft tissue disorders (principal); I82.422 Acute embolism and thrombosis of left iliac vein; I82.522 Chronic embolism and thrombosis of left iliac vein; I87.1 Compression of vein
CPT/HCPCS: 93971

== ENCOUNTER 2023-07-12 07:43 | Outpatient (CLI) | payer OTHER, SELFPAY ==
--- NOTE | 2023-07-12 07:44 | AAVD_ITS ---
Reason For Study: HX LLE DVT / LLE CIV Stent Inferior Vena Cava Proximal inferior vena cava measures 1.11 x 1.45 cm. in the cross-sectional axis. Proximal inferior vena cava measures 0.96 cm. in the longitudinal axis. Mid inferior vena cava measures 0.98 x 0.99 cm. in the cross-sectional axis. Mid inferior vena cava measures 0.99 cm. in the longitudinal axis. Distal inferior vena cava measures 1.10 x 1.10 cm. in the cross-sectional axis. Distal inferior vena cava measures 0.94 cm. in the longitudinal axis. Continuous flow noted throughout IVC. Left Common Iliac Vein Left common iliac vein measures 1.23 x 1.28 cm. in the cross-sectional axis. Left common iliac vein measures 1.36 cm. in the longitudinal axis. No flow detected in LT CIV. Right Common Iliac Vein Right common iliac vein measures 1.29 x 1.28 cm. in the cross-sectional axis. Right common iliac vein measures 1.13 cm. in the longitudinal axis. Continuous flow noted in Rt CIV. VL/Abd Aortic/IVC Duplex scan Interpretation Summary Inferior vena cava patent with continuous flow throughout. Right iliac vein patent with continuous flow throughout. Left iliac vein stent occluded. Ordering Physician: Ryan Ceja Referring Physician: Ryan Ceja Performed By: Yanick Dixon RVT
== END 2023-07-12 23:59 | disposition home or self-care (01) ==
PROVIDERS: PCP Nurse Practitioner; Referring Provider Surgery Trauma Surgery; Visit Provider Surgery Trauma Surgery
DX: I82.422 Acute embolism and thrombosis of left iliac vein (principal)
CPT/HCPCS: 93978

== ENCOUNTER → 2024-04-13 | Outpatient (CLI) | payer OTHER, SELFPAY ==
--- NOTE | 2024-04-13 09:11 | VDLE_ITS ---
Reason For Study Reason For Study: HX LLE DVT RIGHT LEFT CFV is compressible, spontaneous, phasic, competent GSV is normal. and demonstrates normal augmentation. Flow within GSV / ASV at SFJ is noted in pulsed wave Procedure and color doppler. This is a venous duplex using B-mode, color flow and CFV is dilated and NONCOMPRESSIBLE. Unable to spectral Doppler. visualize flow with pulsed wave and color doppler. Exam performed in department. Stent noted in Lt CFV. The exam was diagnostic. FV is PARTIALLY COMPRESSIBLE with intraluminal echoes Compare to study 07/12/2023. noted throughout. Diminished flows noted in pulsed wave and color doppler. POP V is PARTIALLY COMPRESSIBLE with intraluminal echoes noted throughout. Flow appears diminished with normal augmentation. T/P Trunk is compressible. PTV is compressible. Katie V is compressible. Varicose veins / ASV noted throughout Lt lateral calf appear compressible. VL/Venous Duplex US, Unilateral Interpretation Summary Chronic deep vein thrombosis noted in the left common femoral vein, femoral vei n, popliteal vein. Ordering Physician: Dolly Clarke Referring Physician: Sorin Bailey M.D. Performed By: Yanick Dixon RVT
--- NOTE | 2024-04-13 09:11 | AAVD_ITS ---
Reason For Study Reason For Study: HX LT CIV STENT / DVT Inferior Vena Cava Proximal inferior vena cava measures 1.00 x 1.21 cm. in the cross-sectional axis. Proximal inferior vena cava measures 0.88 cm. in the longitudinal axis. Mid inferior vena cava measures 1.42 x 1.51 cm. in the cross-sectional axis. Mid inferior vena cava measures 1.24 cm. in the longitudinal axis. Distal inferior vena cava measures 1.38 x 1.79 cm. in the cross-sectional axis. Distal inferior vena cava measures 1.34 cm. in the longitudinal axis. The inferior vena cava has spontaneous, phasic flow throughout. Left Common Iliac Vein Left common iliac vein measures 1.32 x 1.28 cm. in the cross-sectional axis. Left common iliac vein measures 1.42 cm. in the longitudinal axis. Stent Noted. Unable to visualize flow in CIV and EIV. Right Common Iliac Vein Right common iliac vein measures 1.47 x 1.69 cm. in the cross-sectional axis. Right common iliac vein measures 1.41 cm. in the longitudinal axis. The right common iliac vein has spontaneous, phasic flow throughout. Procedure Aorta IVC Iliac vasculature or bypass grafts [id number]. The exam was diagnostic. Exam performed in department. Compare to study on 07/12/2023. VL/Abd Aortic/IVC Duplex scan Interpretation Summary Inferior vena cava and right iliac vein patent with normal venous flow pattern. Left iliac vein stent occluded. Ordering Physician: Dolly Clarke Referring Physician: Sorin Bailey M.D. Performed By: Yanick Dixon RVT
== END | disposition home or self-care (01) ==
PROVIDERS: PCP Family Medicine; Referring Provider Physician Assistant; Visit Provider Physician Assistant
DX: I87.2 Venous insufficiency (chronic) (peripheral) (principal); I82.422 Acute embolism and thrombosis of left iliac vein; I87.1 Compression of vein; M79.89 Other specified soft tissue disorders
CPT/HCPCS: 93971; 93978

== ENCOUNTER → 2024-05-28 | Outpatient (CLI) | payer OTHER, SELFPAY | END | disposition home or self-care (01) | LOC: LABSPEC 13:56 | PROVIDERS: PCP Family Medicine; Visit Provider Physician Assistant Surgical | DX: N23 Unspecified renal colic (principal) | CPT/HCPCS: 87077; 87086; 87088; 87186 ==

== ENCOUNTER 2024-08-02 08:46 | Emergency (ER) | payer OTHER, SELFPAY ==
[2024-08-02 08:47] VITALS: BP 143/78; PULSE 88; RESP 18; TEMP 36.7; O2SAT 97; BMI 29.9
--- NOTE | 2024-08-02 08:56 | CT_ITS ---
PROCEDURE: ABDOMEN/PELVIS WITHOUT CONT 08/02/2024 REASON FOR EXAM: RIGHT FLANK PAIN TECHNIQUE: Abdomen and pelvis CT without intravenous contrast. Noncontrast technique limits evaluation of the abdominal and pelvic viscera. Coronal and Sagittal reconstruction series were provided. One or more dose reduction techniques were used (e.g., Automated exposure control, adjustment of the mA and/or kV according to patient size, use of iterative reconstruction technique). PATIENT PREPARATION: Per protocol ORAL CONTRAST TYPE: None. COMPARISON: CT abdomen and pelvis 06/21/2023 FINDINGS: Lung bases: Bibasilar atelectasis. Few scattered calcified granulomas. Liver: Severe diffuse steatosis.. No focal lesion. Hepatomegaly, craniocaudal length 19.1 cm. Gallbladder: No ductal dilation. Status post cholecystectomy. Spleen: Splenomegaly, craniocaudal length 14.1 cm. No focal lesion. Pancreas: Normal size. No surrounding inflammation. Adrenals: Unremarkable. Kidneys: 24 mm left upper pole simple cyst. No calculi or hydronephrosis. Bladder: Circumferential urinary bladder wall thickening. Reproductive Organs: No pelvic mass. Bowel: Small hiatal hernia. The stomach is otherwise unremarkable. No bowel dilation or wall thickening. Colonic diverticulosis without diverticulitis. Moderate colonic stool. Appendix: Normal appendix. Lymph nodes: No suspicious lymph node enlargement. Vasculature: Diffuse atherosclerotic calcification of the abdominal aorta and iliac arteries. Postoperative changes left common iliac vein-proximal femoral vein stent. Peritoneum / Retroperitoneum: No ascites. No pneumoperitoneum. Bones: Degenerative changes of the lumbar spine. Soft tissue: Small fat containing umbilical hernia. CT/Abdomen/Pelvis without Cont IMPRESSION: 1. No acute findings in the abdomen and pelvis. 2. Hepatosplenomegaly and diffuse steatosis. [facility]
--- NOTE | 2024-08-02 08:57 | EX.ED.DYSGE1 ---
HPI History of Present Illness Chief Complaint: Flank Pain Detail of Chief Complaint: Right flank pain and right eye redness Informant: patient Narrative Narrative: Patient presents with right flank pain that has had intermittently for about a week. Complains of urinary urgency. Denies dysuria. Denies fever or chills or sweats. Patient also states that a few days ago developed a cough and some congestion. He noticed a little bit of drainage from his right eye about 6 days ago. Yesterday he woke up with a matted eye. This morning increased drainage from the right eye. He denies sick contacts. Patient rates his pain in his right back and abdomen about a 5 out of 10. He has history of diverticulitis with prior partial colon resection related to that. Patient's had prior cholecystectomy. 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 Hypogonadism 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 Sebaceous cyst of scrotum Kidney pain Liver disease Hearing problem Back problem Wears hearing aid Loss of hearing MRSA infection Marijuana use History of renal disease High cholesterol DVT (deep venous thrombosis) History of diverticulitis Smoker History of edema Ileofemoral deep vein thrombosis (~11/2022) Small bowel diverticular disease Home Medications ?Medication ?Instructions ?Recorded ?Last Taken ?Type rosuvastatin 10 mg tablet (Crestor) 10 mg PO DAILY 01/30/23 02/11/23 History aspirin 81 mg tablet,delayed 81 mg PO BREAKFAST #30 tabs 02/13/23 Unknown Rx release blood pressure monitor #1 ea 03/21/23 Unknown Rx triamcinolone acetonide 0.1 % 1 applic topical BID #80 grams 07/12/23 Unknown Rx topical cream rivaroxaban 20 mg tablet 20 mg PO QPM #90 tabs 04/14/24 Unknown Rx tadalafil 5 mg tablet 5 mg PO DAILY #90 tabs 06/02/24 Unknown Rx vancomycin 250 mg capsule 250 mg PO TID #21 caps 06/03/24 Unknown Rx tamsulosin 0.4 mg capsule 0.4 mg PO DAILY #90 caps 06/05/24 Unknown Rx cabergoline 0.5 mg tablet 1 mg (2 x 0.5 mg) PO 2XW #48 tabs 07/17/24 Unknown Rx fenofibrate 160 mg tablet 160 mg PO DAILY #90 tabs 07/17/24 Unknown Rx levothyroxine 100 mcg tablet 100 mcg PO DAILY #90 tabs 07/17/24 Unknown Rx testosterone 2 pump topical QDAY #150 grams 07/17/24 Unknown Rx Allergy/AdvReac Type Severity Reaction Status Date / Time meperidine (From Demerol) AdvReac Intermediate Nausea/Vom/ Verified 08/02/24 08:47 Diarrhea Surgical History History of colon resection Hx of tonsillectomy H/O knee surgery Hx of colonoscopy Hx of cholecystectomy Social History Smoking Status: Current every day smoker tobacco type: cigarettes Tobacco: How many years used: 30 how long ago did patient quit smokin-6months ago alcohol intake: current substance use type: does not use what type of physical activity do you participate in: none ROS ROS ED Review of Systems ROS Unobtainable: other Constitutional Constitutional ED: Reports lethargy; Denies chills, fever(s), sweats or weight loss Eyes Eyes: Reports other Details: Right eye redness and drainage ; Denies blurry vision, change in vision or diplopia ENT ENT ED: Denies rhinorrhea or sore throat Cardiovascular Cardiovascular: Denies chest pain, orthopnea or racing heartbeat Respiratory/Chest Respiratory/Chest: Reports cough; Denies dyspnea, dyspnea on exertion, orthopnea or sputum Gastrointestinal Gastrointestinal: Reports abdominal pain; Denies diarrhea, nausea or vomiting Genitourinary Genitourinary ED: Denies dysuria, hematuria or urinary frequency Musculoskeletal Musculoskeletal: Reports back pain; Denies arthralgias, myalgias or neck pain Integumentary Denies abscess, Abrasions or rash Neurologic Neurologic: Denies headache(s) or weakness Psychiatric Psychiatric: Denies anxiety, depression or suicidal thoughts Endocrine Endocrinology: Denies polydipsia, polyphagia or polyuria Hematologic/Lymphatic Hematologic/Lymphatic: Denies easy bleeding, easy bruising or lymphadenopathy Allergic/Immunologic Allergic/Immunologic ED: Denies mouth swelling, tongue swelling or urticaria EXAM Physical Exam Const Vital Signs: 08/02/24 08:47 Temperature 98.1 F Temperature Source Oral Pulse Rate 88 Respiratory Rate 18 Blood Pressure 143/78 H Blood Pressure Mean 99 Pulse Ox 97 Oxygen Delivery Method Room Air Positive well nourished and well developed General Appearance ED: well developed and NAD HEENT Reports TM's clear and moist mucous membranes normocephalic and atraumatic; Negative for trauma or tenderness Tympanic Membrane ED: Yes TM's clear Eyes PERRL and EOMs intact bilaterally Eyes Narrative: Right eye conjunctival erythema. He does have some drainage from the right eye with some matting of the eyelashes. Eye movements are painless. No orbital cellulitis noted. No obvious abrasions noted. No foreign bodies noted. General Eye ED: Negative for pale conjunctiva or scleral icterus Neck no lymphadenopathy, supple and no JVD General: Negative for tenderness Chest Wall inspection of chest normal and palpation of chest normal Chest: Negative for tenderness Resp normal respiratory effort and clear to auscultation bilaterally Effort and Inspection: Negative for respiratory distress or pain with movement Auscultation: Negative for rhonchi, wheezes or diminished lung sounds Cardio regular rate, regular rhythm, S1 normal heart sound, S2 normal heart sound and no murmurs Peripheral Pulses: pulses 2+ throughout GI normal to inspection, nondistended, normoactive bowel sounds, soft to palpation, non-tender, non-distended and no masses GI Narrative: Mild tenderness of her right lower quadrant with some mild guarding. There is no rebound, rigidity, or peritoneal signs. No mass palpated. Back/Spine no thoracic nor lumbar tenderness Back/Spine Narrative: Mild right CVA tenderness on exam Extremity normal to inspection General Extremety ED: Negative for edema General Extremity: Negative for edema Neuro oriented x3, CN's II-XII intact bilaterally, no sensory deficits noted and gait normal Sensorium / Orientation: awake, alert, oriented to person, oriented to place and oriented to time Motor Exam: strength 5/5 throughout and strength abnormal Psych mental status grossly normal Skin no rashes or lesions noted and no wounds MDM MDM MDM Narrative Medical decision making narrative: Patient presents the emergency department with complaint of right-sided flank pain radiating to his abdomen at times. Also complains of right eye redness and drainage. He has had some upper respiratory symptoms that started 2 or 3 days ago with some congestion and a mild sore throat mild cough. Clinically looks well. Vital signs stable. IV line established. He was medicated with Toradol. CBC with differential, 10.8 with hemoglobin 16.8 and platelet count of 263. Chemistries were unremarkable. Urinalysis without signs of infection. CT flank obtained showed no evidence of kidney stone or other acute disease process. While in department he was treated with gentamicin ophthalmic drops for his right eye conjunctivitis. He understands this could be viral or may be bacterial but will cover with antibiotics to treat bacterial causes. Etiology of his right flank pain unclear although I suspect could be musculoskeletal. Advised him to follow-up with his primary care physician within next 5 to 7 days. Will treat with gentamicin for the conjunctivitis. Lab Data Attestation: I reviewed the patient's lab results. Labs: Laboratory Results - last 24 hr 08/02/24 08/02/24 09:00 09:08 WBC 10.8 RBC 5.64 Hgb 16.8 H Hct 49.7 MCV 88.1 MCH 29.8 MCHC 33.8 RDW Std Deviation 45.4 H RDW Coeff of Mookie 14.1 Plt Count 263 MPV 9.1 Immature Gran % (Auto) 0.400 Neut % (Auto) 70.5 H Lymph % (Auto) 17.[address] [place] % (Auto) 8.9 Eos % (Auto) 1.9 Baso % (Auto) 0.8 Absolute Neuts (auto) 7.6 Absolute Lymphs (auto) 1.89 Nucleated RBC % 0 Sodium 138 Potassium 4.1 Chloride 104 Carbon Dioxide 23.0 Anion Gap 11 BUN 15 Creatinine 0.94 Estim Creat Clear Calc 105.56 Est GFR (MDRD) Non-Af 92 BUN/Creatinine Ratio 15.9 Glucose 105 H Calcium 10.3 Urine Color Yellow Urine Clarity Clear Urine pH 6.0 Ur Specific [place] 1.015 Urine Protein 15 H Urine Glucose (UA) Normal Urine Ketones Negative Urine Occult Blood 10 H Urine Nitrite Negative Urine Bilirubin Negative Urine Urobilinogen Normal Ur Leukocyte Esterase 25 H Urine RBC 0-5 SEEN Urine WBC 0-5 SEEN Ur Squamous Epith Cells 10-25 SEEN Urine Bacteria 0 SEEN Urine Mucus 0 SEEN Radiography Diagnostic Testing: Clinical Impression(s) from Imaging Studies Abdomen/Pelvis CT 08/02/24 08:56 IMPRESSION: 1. No acute findings in the abdomen and pelvis. 2. Hepatosplenomegaly and diffuse steatosis. Reading Location: [place] Discharge Plan Triage Chief Complaint: Flank Pain Other Complaint: Eye Problem ED Provider: Rusty Hawkins Dx/Rx/DC Orders Clinical Impression: Acute flank pain, Conjunctivitis Instructions: ED Conjunctivitis, Bacterial, ED Flank Pain, Uncertain Cause Prescriptions: No Action rosuvastatin [Crestor] 10 mg tablet 10 mg PO DAILY (DME) blood pressure monitor Kit See Rx Instructions .ROUTE .MEDSUPPLY Qty: 1 0RF Rx Instructions: As directed triamcinolone acetonide 0.1 % cream 1 applic topical BID Qty: 80 0RF fenofibrate 160 mg tablet 160 mg PO DAILY Qty: 90 1RF levothyroxine 100 mcg tablet 100 mcg PO DAILY Qty: 90 3RF testosterone 20.25 mg/1.25 gram (1.62 %) gel in metered-dose pump 2 pump topical QDAY Qty: 150 5RF Rx Instructions: apply 1 pump amount over max area of EACH upper arm and shoulder cabergoline 0.5 mg tablet 1 mg PO 2XW Qty: 48 1RF Rx Instructions: take 2 tab by mouth on Tues and Sat aspirin 81 mg Tablet,Delayed Release (Dr/Ec) 81 mg PO BREAKFAST Qty: 30 0RF rivaroxaban 20 mg tablet 20 mg PO QPM Qty: 90 1RF Rx Instructions: must administer with evening meal tadalafil 5 mg tablet 5 mg PO DAILY Qty: 90 1RF vancomycin 250 mg capsule 250 mg PO TID Qty: 21 0RF tamsulosin 0.4 mg capsule 0.4 mg PO DAILY Qty: 90 0RF Primary Care Provider: Justice Bailey Referrals: Justice Bailey, [Primary Care Provider] - 5-7 Days Print Language: Peruvian Disposition Disposition: Home, Self Care
[2024-08-02] MEDS: Ketorolac 15 MG/ML Vial IV (09:04)
[2024-08-02 09:06] LABS: Bacteria 0 SEEN /hpf (None Seen); Mucous, Urine 0 SEEN /hpf (<or=2+)
[2024-08-02 09:14] LABS: Color, Urine Yellow (Yellow); Glucose, Dipstick Normal (Normal); Ketone-Dipstick Negative (Negative); Leukocyte Esterase-Dipstick 25 /ul (Negative); Nitrite-Dipstick Negative (Negative); Occult Blood-Urine 10 /ul (Negative); Protein-Dipstick 15 mg/dl (Negative); Specific Gravity, Urine 1.015 (1.002-1.030); Urine Bilirubin Dipstick Negative (Negative); Urine Clarity Clear (Clear); Urine Urobilinogen Normal (Normal)
[2024-08-02 09:18] LABS: Absolute Lymphocyte Count 1.89 X10^3/uL (0.83-4.51); Absolute Neutrophil Count 7.6 X10^3/uL (2.0-7.7); Basophil# 0.09 X10^3/uL; Basophil% 0.8 % (0-1); Eosinophil# 0.21 X10^3/uL; Eosinophils% 1.9 % (0-5); Hematocrit 49.7 % (40-54); Hemoglobin 16.8 g/dL (13.0-16.5); Lymphocyte # 1.89 X10^3/ul (0.83-4.51); Lymphocyte % 17.5 % (19-41); Mean Corp Hgb Conc 33.8 g/dL (32-36); Mean Corpuscular Hgb 29.8 pg (27.0-32.0); Mean Corpuscular Volume 88.1 fL (80-94); Mean Platelet Vol. 9.1 fl (6.2-12.0); Monocyte# 0.96 X10^3/uL; Monocyte% 8.9 % (0-10); NRBC Flagged by Analyzer 0 % (0-5); Neutrophil # 7.61 X10^3/uL (2.7-7.7); Neutrophil % 70.5 % (47-70); Platelet Count 263 K/mm3 (150-450); RBC Distribution Width CV 14.1 % (11.6-14.6); RBC Distribution Width SD 45.4 fl (35.1-43.9); Red Blood Count 5.64 M/mm3 (4.6-6.2); White Blood Count 10.8 K/mm3 (4.4-11.0)
[2024-08-02 09:23] LABS: Red Blood Cells-Urine 0-5 SEEN /hpf (0-5); Squamous Epithelial Cells - UA 10-25 SEEN /hpf (0-5); White Blood Cells 0-5 SEEN /hpf (0-5)
--- OUTSIDE RECORDS SUMMARY | 2024-08-02 09:29 | XMS RPT_ITS | CCD ---
Author Organization [facility] CliniSywy Care Team Providers Care Ux Engineer Name Role Phone [place] Perales Primary Care Provider [place] P[place]es Primary Care Unavailable PROVIDER, UNKNOWN Referring Unavailable Ventura Rivas Attending Unavailable Lake Perales MD Primary Care Provider [place] P[place]es Primary Care Unavailable PROVIDER, UNKNOWN Referring Unavailable ROCIO NIEVES Attending Unavailable [place] Perales Primary Care Unavailable PROVIDER, UNKNOWN Referring Unavailable Jean Marie Benito Attending Unavailable PROVIDER, UNKNOWN Referring Unavailable Temi Lynne Attending Unavailable [place] P[place]es Primary Care Unavailable PROVIDER, UNKNOWN Referring Unavailable Zheng Spence Attending Unavailable [place] Perales Primary Care Unavailable Lake Perales MD Primary Care Provider Lake Perales MD Primary Care Provider PHYSICIAN, NONE Attending Unavailable PHYSICIAN, NONE Primary Care Unavailable [place] Perales MD Primary Care Provider Cheryl Basilio MD Primary Care Provider Jacob Arauz MD Unavailable Dr. Ryan Ceja Attending Provider Dr. Ryan Ceja Admit Provider Dr. Ryan Ceja Referring Provider [phone] Ryan Ceja Other Provider CHERYL BASILIO Primary Care Provider Dr. Fabio Day Other Provider EDMUND Clarke Attending Provider Dr. Ryan Ceja Referring Provider [phone] Janette King Attending Provider RUBI Hale Attending Provider Praful SANDERSON, Cheryl Hernandez Primary Care Provider Cheryl Basilio MD Primary Care Provider [phone] Dr. Ryan Ceja Attending Provider [phone] Ryan Ceja Referring Provider [phone] Janette King Attending Provider [phone] Dr. Ryan Ceja Admit Provider Dr. Ryan Ceja Other Provider CHERYL BASILIO Primary Care Provider Dr. Fabio Day Other Provider EDMUND Clarke Attending Provider [phone] RUBI Hale Attending Provider [phone] EDMUND Yates Attending Provider [phone] RUBI Hale Primary Care Provider RUBI Hale Referring Provider [phone] Dr. Ryan Ceja Attending Provider [phone] Ryan Ceja Attending Provider [phone] Ryan Ceja Referring Provider [phone] EDMUND Clarke Attending Provider [phone] Ryan Ceja Attending Provider [phone] Silvestre Sexton Primary Care Provider CHERYL BASILIO Primary Care Unavailable SILVESTRE SEXTON Primary Care Unavailable ROCIO CALIX Attending Unavailable CHERYL BASILIO Attending Unavailable CHERYL BASILIO Primary Care Unavailable JACOB ARAUZ Attending Unavailable CHERYL BASILIO Primary Care Unavailable PACHECO ORTIZ Attending Unavailab le CHERYL BASILIO Primary Care Unavailable CHERYL BASILIO Primary Care Unavailable JACOB ARAUZ Admitting Unavailable JACOB ARAUZ Attending Unavailable JOURILES, PACHECO J Attending Unavailable PRAFUL, CHERYL Primary Care Unavailable YOLANDA PATEL Attending Unavailable PRAFUL, CHERYL Primary Care Unavailable PRAFUL, CHERYL Primary Care Unavailable DAVONTE, JACOB Attending Unavailable VEJUNE RUIZ, ROCIO Attending Unavailable PRAFUL, CHERYL Primary Care Unavailable PRAFUL, CHERYL Attending Unavailable PARFUL, CHERYL Referring Unavailable PRAFUL, CHERYL Primary Care Unavailable VEERAVANALLUR APPUSWAMY, ROCIO Referring Unavailable SILVESTRE SEXTON Primary Care Unavailable VEERADANIE LOWEUSDEBORAHMY, ROCIO Attending Unavailable PRAFUL, CHERYL Attending Unavailable PRAFUL, CHERYL Referring Unavailable PRAFUL, CHERYL Primary Care Unavailable PRAFUL, CHERYL Primary Care Unavailable DAVONTE, JACOB Attending Unavailable DAVONTE, JACOB Referring Unavailable VEJUNE RUIZ, ROCIO Attending Unavailable ELLEN RUIZ, ROCIO Referring Unavailable PRAFUL, CHERYL Primary Care Unavailable DAVONTE, JACOB Attending Unavailable PRAFUL, CHERYL Primary Care Unavailable ALEXIA BAEZA-BHAVNA, SANJANA M Primary Care Physician BASIM RAMSEY MD Attending Unavaila laurent HALE APRN-[employer]IT[employer] CHAMBER TECHNICIAN, SANJANA M Primary Care Lizz HALE APRN-BHAVNA, SANJANA M Primary Care BASIM Thibodeaux MD Attending Unavaila laurent Hale DIVISION COMMANDER-C, Sanjana Primary Care Provider Alexia DIVISION COMMANDER-C, Sanjana Referring Provider [phone] David Piña Attending Provider [phone] Dolly Stewart Attending Provider [phone] Justice Bailey DO Primary Care Provider Dr. Justice Bailey DO Attending Provider Dolly Stewart Referring Provider [phone] Ryan Ceja MD Attending Provider Yolanda Yates Attending Provider Dr. Justice Bailey DO Referring Provider Stanislaw Thomas Attending Provider David Piña Attending Unavailable Ferullo, Sanjana Referring Unavailable Ferullo, Sanjana Primary Care Unavailable Clarke, Dolly Attending Unavailable Ferullo, Sanjana Referring Unavailable Ferullo, Sanjana Primary Care Unavailable Brown, Justice R Attending Unavailable Brown, Justice R Primary Care Unavailable Ferullo, Sanjana Referring Unavailable Clarke, Dolly Referring Unavailable Brown, Justice R Primary Care Unavailable Ryan Ceja Attending Unavailable Yolanda Yates Attending Unavailable Brown, Justice R Primary Care Unavailable Brown, Justice R Primary Care Unavailable Stanislaw Thomas Attending Unavailable Clarke, Dolly Attending Unavailable Clarke, Dolly Referring Unavailable Brown, Justice R Primary Care Unavailable Estefany Gonzalez Attending Unava ilable Brown, Justice R Primary Care Unavailable Brown, Justice R Referring Unavailable Brown, Justice R Primary Care Unavailable Stanislaw Thomas Attending Unavailable Brown, Justice R Primary Care Unavailable Brown, Justice R Referring Unavailable Franky Brewer Attending Unavailable Ferullo, Sanjana Referring Unavailable Ferullo, Sanjana Primary Care Unavailable Ferullo, Sanjana Attending Unavailable Brown, Justice R Attending Unavailable Ferullo, Sanjana Referring Unavailable Ferullo, Sanjana Primary Care Unavailable Brown, Justice R Attending Unavailable Ferullo, Sanjana Referring Unavailable Ferullo, Sanjana Primary Care Unavailable Ferullo, Sanjana Attending Unavailable Ferullo, Sanjana Referring Unavailable Ferullo, Sanjana Primary Care Unavailable Allergies Allergy Classification Reported Allergen(s) Allergy Type Date of Onset Reaction(s) Facility Opioid Agonists (1 source) Meperidine Drug Allergy 5 Nausea And Vomiting [facility] (20 sources) Meperidine; Translations: [meperidine] Drug Allergy 5 Nausea And Vomiting, Vomiting (disorder) [place], [place] (1 source) Meperidine Drug Allergy 5 [facility] Repository Medications Current Medications Medication Drug Class(es) Dates Sig (Normalized) Sig (Original) aspirin 81 mg delayed release oral tablet (20 sources) Platelet Aggregation Inhibitor, Nonsteroidal Anti-inflammatory Drug Start: 02-13-2023 aspirin 81 mg oral delayed release tablet Dose : 81 mg = 1 tab(s), Oral, Daily, 0 Refill(s) Start Date: 12/24/23 Status: Ordered Repeat number: 1 Start: 12-01-2021 End: 06-19-2022 take 81 mg by mouth once daily 81 mg, Oral, DAILY, Fir st dose on Sat12/01/21 at 1900, Until Discontinued take 1 tablet by celestino th once daily aspirin 81 MG tablet Take 81 mg by mouth daily Most days 0 Suspended Blood Pressure Monitor (14 sources) Start: 03-21-2023 Blood Pressure Monitor Active 0 .ROUTE .MEDSUPPLY March 21, 2023 1:56pm As directed Start: 03-21-2023 Blood Pressure Monitor Active 0 .ROUTE .MEDSUPPLY March 21, 2023 12:56pm As directed Start: 03-21-2023 End: 03-21-2023 Blood Pressure Monitor Disco ntinued 0 .ROUTE .MEDSUPPLY March 21, 2023 1:00am March 21, 2023 1:56pm As directed Start: 03-21-2023 End: 03-21-2023 Blood Pressure Monitor Disco ntinued 0 .ROUTE .MEDSUPPLY March 21, 2023 12:00am March 21, 2023 12:56pm As directed Blood Pressure Monitor kit 5 History aspirin 81 mg tablet,delayed 81 mg PO BREAKFAST #30 tabs 03/31/24 Rx release blood pressure monitor #1 ea 03/21/23 03/31/24 Rx triamcinolone acetonide 0.1 % 1 applic topical BID #80 grams 03/31/24 Rx topical cream rivaroxaban 20 mg tablet 20 mg PO QPM #90 tabs 09/13/2306/19 Rx cyclobenzaprine 10 mg tablet 10 mg PO BID PRN muscle spasm #30 10/14/23 03/31/24 Rx tabs fenofibrate 160 mg tablet 160 mg PO DAILY #90 tabs 10/25/23 03/31/24 Rx tamsulosin 0.4 mg capsule 0.4 mg PO DAILY #90 caps 10/25/23 03/31/24 Rx cabergoline 0.5 mg tablet 0.5 mg PO 2XW #30 tabs 11/06/23 Rx levothyroxine 100 mcg tablet 100 mcg PO DAILY #90 tabs 11/06/23 03/31/24 Rx tadalafil 5 mg tablet 5 mg PO DAILY #90 tabs 10/08/24 02 /04/25 Rx Have you fallen in the past year?: No PFSH Medical History Sebaceous cyst of scrotum Kidney pain Pituitary abnormality Liver disease Hearing problem Back problem Wears hearing aid Loss of hearing MRSA infection Marijuana use Thyroid disease History of renal disease High cholesterol DVT (deep venous thrombosis) History of diverticulitis Smoker History of edema 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) Small bowel diverticular disease Surgical History History of colon resection Hx of tonsillectomy H/O knee surgery Hx of colonoscopy Hx of cholecystectomy Social History Smoking Status: Current some day smoker tobacco type: cigarettes Tobacco: How many years used: 30 how long ago did patient quit smokin-6months ago alcohol intake: current substance use type: does not use what type of physical activity do you participate in: none HPI HPI Chief Complaint: establishing Details: JAYLEN QUEEN, is a 63 M who presents to the office today for a routine visit to discuss some medical problems and to establish with me as his primary provider. He has had some trouble with some swelling of his left leg and is seeing vascular surgery who ordered a Doppler. However examining his leg I really cannot find anything wrong so I suspect that test will not show anything of significance. ROS Const Constitutional: No body ache, excessive sweating, fatigue, fever(s), frequent falls, headache(s), snoring, weakness, weight change, sleep problems or change in appetite Eyes Eyes: No blurry vision, change in vision, eye pain or Light sensitivity ENT ENT: No abnormal hearing, ear or mastoid pain, tinnitus, nasal congestion, headache(s), neck pain or sore throat Resp Respiratory: No cough, shortness of breath, snoring or wheezing Cardio Cardiology: No chest pain at rest, chest pain with exertion, excessive sweating, shortness of breath, dyspnea on exertion, lightheadedness, orthopnea or palpitations Gastro GI: No abdominal pain, change in bowel habits, constipation, cramping, diarrhea, nausea/dyspepsia or vomiting Genitourinary Male: No burning urination, painful urination, urinary incontinence, urinary frequency or blood in urine Musc Musculoskeletal: No abnormal gait, joint pain, back pain, limited range of motion, neck pain, numbness, stiffness, tingling or Arthritis Skin Skin: No dry skin, redness, lesions, itchy eyes, rash or wounds Neuro Neurology: No abnormal gait, abnormal hearing, abnormal speech, dizziness, weakness, frequent falls, headache(s), memory loss, numbness or ti (more content not included)... Normal [facility] MR/BMS.Beatriz 03-18-2024 MR/BMS.BVS [facility] Vascular Surgery [address] [place] [address] OFFICE VISIT Date of Service: 03/18/24 MR#: [id number] Acct: [id number] Name: JAYLEN QUEEN Rep #: [id number] : 1960 Provider: EDMUND Jovel Age/Sex: 63/M Location: [facility] Status: Signed Intake Vital Signs 02/25/24 10:24 03/13/24 08:08 03/18/24 13:30 Height 6 ft 2 in 6 ft 2 in Weight: 238 lb 6 oz 242 lb BMI 30.6 BP 150/84 H 138/77 H Blood Pressure Location Lt brachial Lt brachial Position Sitting Sitting Respiration 16 Pulse 78 76 Pulse Source Monitor Temp 98.3 F 98.2 F Temp Source Oral Temporal Pulse Oximetry (%) 96 94 Oxygen Delivery Method room air room air Intake Visit Reasons: LEFT LEG PRESSURE AND SWELLING Is patient in pain?: No Allergies meperidine (From Demerol) Adverse Reaction (Intermediate, Verified 03/18/24 13:31) Nausea/Vom/Diarrhea Medications ???Medication ???Instructions ???Recorded ???Confirmed ???Type niacin 1,000 mg tablet,extended 1,000 mg PO QHS 01/30/23 02/25/24 History release rosuvastatin 10 mg tablet (Crestor) 10 mg PO DAILY 01/30/23 02/25/24 History aspirin 81 mg tablet,delayed 81 mg PO BREAKFAST #30 tabs 02/13/23 02/25/24 Rx release blood pressure monitor #1 ea 03/21/23 02/25/24 Rx triamcinolone acetonide 0.1 % 1 applic topical BID #80 grams 07/12/23 02/25/24 Rx topical cream rivaroxaban 20 mg tablet 20 mg PO QPM #90 tabs 09/13/23 02/25/24 Rx cyclobenzaprine 10 mg tablet 10 mg PO BID PRN muscle spasm #30 10/14/23 02/25/24 Rx tabs fenofibrate 160 mg tablet 160 mg PO DAILY #90 tabs 10/25/23 02/25/24 Rx tamsulosin 0.4 mg capsule 0.4 mg PO DAILY #90 caps 10/25/23 02/25/24 Rx cabergoline 0.5 mg tablet 0.5 mg PO 2XW #30 tabs 11/06/23 02/25/24 Rx levothyroxine 100 mcg tablet 100 mcg PO DAILY #90 tabs 11/06/23 02/25/24 Rx tadalafil 5 mg tablet 5 mg PO DAILY #90 tabs 12/03/23 02/25/24 Rx Have you fallen in the past year?: No PFSH Medical History Sebaceous cyst of scrotum Kidney pain Pituitary abnormality Liver disease Hearing problem Back problem Wears hearing aid Loss of hearing MRSA infection Marijuana use Thyroid disease History of renal disease High cholesterol DVT (deep venous thrombosis) History of diverticulitis Smoker History of edema 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) Small bowel diverticular disease Surgical History History of colon resection Hx of tonsillectomy H/O knee surgery Hx of colonoscopy Hx of cholecystectomy Social History Smoking Status: Current some day smoker tobacco type: cigarettes Tobacco: How many years used: 30 how long ago did patient quit smokin-6months ago alcohol intake: current substance use type: does not use what type of physical activity do you participate in: none HPI HPI HPI: JALYEN QUEEN, is a 63 M who presents to the office today with complaint of increased achiness/tightness through his L ankle which has been progressive over the last few months. Recall that he developed extensive LLE DVT diagnosed in September 2022 initially treated with anticoagulation with no improvement in his symptoms after which he underwent attempted percutaneous thrombectomy and stenting at [facility] which was not successful. He then presented here and underwent percutaneous mechanical thrombectomy left common iliac/external iliac/common femoral/femoral veins and angioplasty stent left common/external iliac veins, left common femoral vein on 02/13/2023. Clot burden was reduced as much as possible and identified venous compression was treated with stenting; however, significant chronic thrombus did remain. Following this procedure, he had significant improvement in his symptoms and he states this lasted about 3 months. 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 Since last OV, he has been wearing measured compression stockings consistently and these do help. However, he just has noticed some increased and more persistent edema around his L ankle and this seems to be contributing to stiffness and discomfort in his ankle joint. The swelling and discomfort do generally improve with elevation. He denies any recent injury to the ankle, no history of known arthritis. Tylenol/ibuprofen do help. The swelling through his L calf seems to be stable, follows typical pattern worse at the end of the day and improves with elevation/overnight. At last OV, he was having stasis (more content not included)... Normal [facility] Urgent Care Visit Reporton 1 Urgent Care Visit Report [facility] [address], [address] [place] [address] OFFICE VISIT Date of Service: 02/25/24 MR#: [id number] Acct: [id number] Name: JAYLEN QUEEN Rep #: [id number] : 1960 Provider: EDMUND Miguel Age/Sex: 63/M Location: [facility] Status: Signed Intake Vital Signs 12/23/23 09:55 02/25/24 10:24 Height 6 ft 2 in 6 ft 2 in Weight: 234 lb 238 lb 6 oz BMI 30.0 30.6 BP 122/78 H 150/84 H Blood Pressure Location Lt brachial Lt brachial Position Sitting Sitting Respiration 18 Pulse 96 78 Pulse Source Monitor Temp 98.6 F 98.3 F Temp Source Temporal Oral Pulse Oximetry (%) 94 96 Oxygen Delivery Method room air room air Intake Visit Reasons: CONCERN FOR BOIL Accompanied by: Self Allergies meperidine (From Demerol) Adverse Reaction (Intermediate, Verified 02/25/24 10:25) Nausea/Vom/Diarrhea Medications ???Medication ???Instructions ???Recorded ???Confirmed ???Type niacin 1,000 mg tablet,extended 1,000 mg PO QHS 01/30/23 02/25/24 History release rosuvastatin 10 mg tablet (Crestor) 10 mg PO DAILY 01/30/23 02/25/24 History aspirin 81 mg tablet,delayed 81 mg PO BREAKFAST #30 tabs 02/13/23 02/25/24 Rx release blood pressure monitor #1 ea 03/21/23 02/25/24 Rx triamcinolone acetonide 0.1 % 1 applic topical BID #80 grams 07/12/23 02/25/24 Rx topical cream rivaroxaban 20 mg tablet 20 mg PO QPM #90 tabs 09/13/23 02/25/24 Rx cyclobenzaprine 10 mg tablet 10 mg PO BID PRN muscle spasm #30 10/14/23 02/25/24 Rx tabs meloxicam 15 mg tablet 15 mg PO DAILY #20 tabs 10/15/23 02/25/24 Rx fenofibrate 160 mg tablet 160 mg PO DAILY #90 tabs 10/25/23 02/25/24 Rx tamsulosin 0.4 mg capsule 0.4 mg PO DAILY #90 caps 10/25/23 02/25/24 Rx cabergoline 0.5 mg tablet 0.5 mg PO 2XW #30 tabs 11/06/23 02/25/24 Rx levothyroxine 100 mcg tablet 100 mcg PO DAILY #90 tabs 11/06/23 02/25/24 Rx tadalafil 5 mg tablet 5 mg PO DAILY #90 tabs 12/03/23 02/25/24 Rx azithromycin 250 mg tablet See Rx Instructions PO .COMPLEX #6 02/25/24 02/25/24 Rx tabs Nurse's Note: Patient has a boil on the left scrotum. Patient has a HX of having one on the right side. [facility] Medical History (Updated 02/25/24 @ 11:13 by David SHAFFER, PA) Sebaceous cyst of scrotum Kidney pain Pituitary abnormality Liver disease Hearing problem Back problem Wears hearing aid Loss of hearing MRSA infection Marijuana use Thyroid disease History of renal disease High cholesterol DVT (deep venous thrombosis) History of diverticulitis Smoker History of edema 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) Small bowel diverticular disease Surgical History History of colon resection Hx of tonsillectomy H/O knee surgery Hx of colonoscopy Hx of cholecystectomy Social History Smoking Status: Current some day smoker tobacco type: cigarettes Tobacco: How many years used: 30 how long ago did patient quit smokin-6months ago alcohol intake: current substance use type: does not use what type of physical activity do you participate in: none HPI HPI Details: JAYLEN QUEEN, is a 63 M who presents to the office today for initial evaluation approximately 1 week history of uncomfortable papular lesion appreciated to right scrotum of unknown etiology, requesting I D of this lesion to relieve the pressure. He states he has had similar presentation in the past elsewhere on his scrotum with surgical excisions of sebaceous cyst in the past. No complaints of fever, chills, sweats, lightheadedness/dizzi ness, nausea/vomiting. No jfsm-dgl-zvmzswl products taken to assist. No other associated symptoms and no other alleviating or aggravating factors. ROS Const Constitutional: No other (As above) Exam Const General: cooperative, healthy appearing and no acute distress Orientation: alert and awake [facility] Head: normal to inspection Ears: hearing grossly normal bilaterally, external ears normal, TM's normal bilaterally and EAC's normal Nose: external nose normal, nares normal, septum normal and no nasal discharge Resp Effort Inspection: normal respiratory effort and able to speak in complete sentences Cardio Rate: regular rate Pulses: radial pulses present Skin General: no rashes or lesions noted Neuro General: patient alert, patient awake and patient oriented x3 Cognition: normal cognition Speech: speech normal Psych Appearance: grossly normal Mental Status: mental status grossly normal Mood: congruent mood Affect: normal affect Speech and Movement: speech and movement normal Attitude: cooperative Office Procedures Incision and Drainage Procedure pe (more content not included)... Normal [facility] TFTESTon 01-09-2024 Free Testost Direct 1.5 pg/mL Low 6.6-18.1 [facility] Comment on above: Result Comment: Perf ormed At: [facility] [address] [id number] Willi Adams MD Ph:[phone] Performed At: [facility] [place] [address] [place], [place] [id number] Pau Carranza PhD Ph:[phone] Performed By: #### V IDH, ANEU, LIPID, [id number], FT3, FT4, GFR, ADIFF, [id number], CAION, TSH, CBC, CMP #### [place] [address] #### PROL, PTH #### [address] [address] Testosterone Lvl 111 ng/dL Low 264-916 [facility] Comment on above: Result Comment: Adul t male reference interval is based on a population of healthy nonobese males (BMI <30) between 19 and 39 years old. erica Joseph.al. JCEM 2017,102;9060-8845. PMID: [id number]. Performed By: #### V IDH, ANEU, LIPID, [id number], FT3, FT4, GFR, ADIFF, [id number], CAION, TSH, CBC, CMP #### [address] [address] #### PROL, PTH #### [address] [address] .Auto Diffon 01-03-2024 Basophil, Absolute 0.1 10 3/mcL Normal 0.0-0.2 [facility] Comment on above: Performed By: #### V IDH, ANEU, LIPID, [id number], FT3, FT4, GFR, ADIFF, [id number], CAION, TSH, CBC, CMP #### [address] [address] #### PROL, PTH #### [address] [address] Basophils/100 WBC (Bld) 1.0 % Normal 0.0-2.5 [facility] Comment on above: Performed By: #### V IDH, ANEU, LIPID, [id number], FT3, FT4, GFR, ADIFF, [id number], CAION, TSH, CBC, CMP #### [address] [address] #### PROL, PTH #### [address] [address] Eosinophil, Absolute 0.2 10 3/mcL Normal 0.0-0.7 [facility] Comment on above: Performed By: #### V IDH, ANEU, LIPID, [id number], FT3, FT4, GFR, ADIFF, [id number], CAION, TSH, CBC, CMP #### [address] [address] #### PROL, PTH #### [address] [address] Eosinophils/100 WBC (Bld) 2.6 % Normal 0.0-7.0 [facility] Comment on above: Performed By: #### V IDH, ANEU, LIPID, [id number], FT3, FT4, GFR, ADIFF, [id number], CAION, TSH, CBC, CMP #### [address] [address] #### PROL, PTH #### [address] [address] Lymphocyte, Absolute 1.6 10 3/mcL Normal 0.9-4.3 [facility] Comment on above: Performed By: #### V IDH, ANEU, LIPID, [id number], FT3, FT4, GFR, ADIFF, [id number], CAION, TSH, CBC, CMP #### [address] [address] #### PROL, PTH #### [address] [address] Lymphocytes/100 WBC (Bld) 21.6 % Normal 20.0-40.0 [facility] Comment on above: Performed By: #### V IDH, ANEU, LIPID, [id number], FT3, FT4, GFR, ADIFF, [id number], CAION, TSH, CBC, CMP #### [address] [address] #### PROL, PTH #### [address] [address] Monocyte, Absolute 0.5 10 3/mcL Normal 0.1-1.4 [facility] Comment on above: Performed By: #### V IDH, ANEU, LIPID, [id number], FT3, FT4, GFR, ADIFF, [id number], CAION, TSH, CBC, CMP #### [address] [address] #### PROL, PTH #### [address] [address] Monocytes/100 WBC (Bld) 7.3 % Normal 2.0-13.0 [facility] Comment on above: Performed By: #### V IDH, ANEU, LIPID, [id number], FT3, FT4, GFR, ADIFF, [id number], CAION, TSH, CBC, CMP #### [address] [address] #### PROL, PTH #### [address] [address] Neutrophils/100 WBC (Bld) 67.5 % Normal 50.0-75.0 [facility] Comment on above: Performed By: #### V IDH, ANEU, LIPID, [id number], FT3, FT4, GFR, ADIFF, [id number], CAION, TSH, CBC, CMP #### [address] [address] #### PROL, PTH #### [address] [address] .GFRon 01-03-2024 GFR 83 ml/min/1.73sqm Normal [facility] Comment on above: Result Comment: GFR Population mean for , Non- Americans Ages 20-29 = 116 mL/min/1.73 sq.m. Ages 30-39 = 107 mL/min/1.73 sq.m. Ages 40-49 = 99 mL/min/1.73 sq.m. Ages 50-59 = 93 mL/min/1.73 sq.m. Ages 60-69 = 85 mL/min/1.73 sq.m. Ages 70+ = 75 mL/min/1.73 sq.m. Chronic Kidney Disease: Less than 60 mL/min/1.73 square meters End Stage Renal Disease: Less than 15 mL/min/1.73 square meters Performed By: #### V IDH, ANEU, LIPID, [id number], FT3, FT4, GFR, ADIFF, [id number], CAION, TSH, CBC, CMP #### [address] [address] #### PROL, PTH #### [address] [address] GFR Non- 69 ml/min/1.73sqm Normal [facility] Comment on above: Result Comment: GFR Population mean for , Non- Americans Ages 20-29 = 116 mL/min/1.73 sq.m. Ages 30-39 = 107 mL/min/1.73 sq.m. Ages 40-49 = 99 mL/min/1.73 sq.m. Ages 50-59 = 93 mL/min/1.73 sq.m. Ages 60-69 = 85 mL/min/1.73 sq.m. Ages 70+ = 75 mL/min/1.73 sq.m. Chronic Kidney Disease: Less than 60 mL/min/1.73 square meters End Stage Renal Disease: Less than 15 mL/min/1.73 square meters Performed By: #### V IDH, ANEU, LIPID, [id number], FT3, FT4, GFR, ADIFF, [id number], CAION, TSH, CBC, CMP #### [address] [address] #### PROL, PTH #### [address] [address] .NEUABSon 01-03-2024 Neutrophil, Absolute 4.9 10 3/mcL Normal 2.3-8.1 [facility] Comment on above: Performed By: #### V IDH, ANEU, LIPID, [id number], FT3, FT4, GFR, ADIFF, [id number], CAION, TSH, CBC, CMP #### [place] [address] #### PROL, PTH #### [address] [address] A1Con 01-03-2024 Glucose [Mass/Vol] 111 mg/dL Normal [facility] Comment on above: Result Comment: Ruthann mated Average Glucose calculated by equation ((28.7xA1C)-46.7) Estimated average glucose (eAG) is a calculated value from Hemoglobin A1C and is paper sales representative of the average blood glucose level in the last 2-3 month period. Normal range: less than 114 mg/dL Performed By: #### V IDH, ANEU, LIPID, [id number], FT3, FT4, GFR, ADIFF, [id number], CAION, TSH, CBC, CMP #### [place] [address] #### PROL, PTH #### [place] [address] HbA1c (Bld) [Mass fraction] 5.5 % Normal 4.3-6.4 [facility] Comment on above: Performed By: #### V IDH, ANEU, LIPID, [id number], FT3, FT4, GFR, ADIFF, [id number], CAION, TSH, CBC, CMP #### [place] [address] #### PROL, PTH #### [place] [address] CAIONon 01-03-2024 Calcium Ionized 1.29 mmol/L Normal 1.12-1.32 [facility] Comment on above: Performed By: #### C AUR #### [place] [address] #### CRUR #### [place] [address] CAURon 01-03-2024 Calcium [Mass/Vol] 14.0 mg/dL Normal [facility] Comment on above: Performed By: #### C AUR #### [place] [address] #### CRUR #### [place] [address] CBCon 01-03-2024 Erythrocyte distribution width (RBC) [Ratio] 15.2 % Normal 11.5-15.5 [facility] Comment on above: Performed By: #### V IDH, ANEU, LIPID, [id number], FT3, FT4, GFR, ADIFF, [id number], CAION, TSH, CBC, CMP #### [place] [address] #### PROL, PTH #### [place] [address] Hematocrit (Bld) [Volume fraction] 49.8 % Normal 40.0-52.0 [facility] Comment on above: Performed By: #### V IDH, ANEU, LIPID, [id number], FT3, FT4, GFR, ADIFF, [id number], CAION, TSH, CBC, CMP #### [place] [address] #### PROL, PTH #### [place] [address] Hgb 16.6 G/dL Normal 13.0-17.5 [facility] Comment on above: Performed By: #### V IDH, ANEU, LIPID, [id number], FT3, FT4, GFR, ADIFF, [id number], CAION, TSH, CBC, CMP #### [place] [address] #### PROL, PTH #### [place] [address] MCH (RBC) [Entitic mass] 29.8 pg Normal 27.0-33.0 [facility] Comment on above: Performed By: #### V IDH, ANEU, LIPID, [id number], FT3, FT4, GFR, ADIFF, [id number], CAION, TSH, CBC, CMP #### [place] [address] #### PROL, PTH #### [place] [address] MCHC 33.3 G/dL Normal 32.0-36.0 [facility] Comment on above: Performed By: #### V IDH, ANEU, LIPID, [id number], FT3, FT4, GFR, ADIFF, [id number], CAION, TSH, CBC, CMP #### [place] [address] #### PROL, PTH #### [place] [address] MCV (RBC) [Entitic vol] 89.3 fL Normal 81.0-100.0 [facility] Comment on above: Performed By: #### V IDH, ANEU, LIPID, [id number], FT3, FT4, GFR, ADIFF, [id number], CAION, TSH, CBC, CMP #### [place] [address] #### PROL, PTH #### [place] [address] Platelet 284 10 3/mcL Normal 150-450 [facility] Comment on above: Performed By: #### V IDH, ANEU, LIPID, [id number], FT3, FT4, GFR, ADIFF, [id number], CAION, TSH, CBC, CMP #### [place] [address] #### PROL, PTH #### [place] [address] Platelet mean volume (Bld) [Entitic vol] 7.3 fL Normal 6.4-10.5 [facility] Comment on above: Performed By: #### V IDH, ANEU, LIPID, [id number], FT3, FT4, GFR, ADIFF, [id number], CAION, TSH, CBC, CMP #### [place] [address] #### PROL, PTH #### [place] [address] RBC 5.58 10 6/mcL Normal 4.50-6.00 [facility] Comment on above: Performed By: #### V IDH, ANEU, LIPID, [id number], FT3, FT4, GFR, ADIFF, [id number], CAION, TSH, CBC, CMP #### [address] [address] #### PROL, PTH #### [place] [address] WBC 7.3 10 3/mcL Normal 4.5-10.8 [facility] Comment on above: Performed By: #### V IDH, ANEU, LIPID, [id number], FT3, FT4, GFR, ADIFF, [id number], CAION, TSH, CBC, CMP #### [place] [address] #### PROL, PTH #### [place] [address] CMPon 01-03-2024 Albumin Level 4.2 G/dL Normal 3.4-4.8 [facility] Comment on above: Performed By: #### V IDH, ANEU, LIPID, [id number], FT3, FT4, GFR, ADIFF, [id number], CAION, TSH, CBC, CMP #### [place] [address] #### PROL, PTH #### [place] [address] Albumin/Globulin [Mass ratio] 1.2 {ratio} Normal 1.1-2.5 [facility] Comment on above: Performed By: #### V IDH, ANEU, LIPID, [id number], FT3, FT4, GFR, ADIFF, [id number], CAION, TSH, CBC, CMP #### [place] [address] #### PROL, PTH #### [place] [address] ALP [Catalytic activity/Vol] 103 U/L Normal 40-135 [facility] Comment on above: Performed By: #### V IDH, ANEU, LIPID, [id number], FT3, FT4, GFR, ADIFF, [id number], CAION, TSH, CBC, CMP #### [place] [address] #### PROL, PTH #### [place] [address] ALT [Catalytic activity/Vol] 39 U/L Normal 16-63 [facility] Comment on above: Performed By: #### V IDH, ANEU, LIPID, [id number], FT3, FT4, GFR, ADIFF, [id number], CAION, TSH, CBC, CMP #### [address] [address] #### PROL, PTH #### [place] [address] AST [Catalytic activity/Vol] 23 U/L Normal 10-40 [facility] Comment on above: Performed By: #### V IDH, ANEU, LIPID, [id number], FT3, FT4, GFR, ADIFF, [id number], CAION, TSH, CBC, CMP #### [place] [address] #### PROL, PTH #### [place] [address] Bili Total 0.6 mg/dL Normal 0.2-1.0 [facility] Comment on above: Result Comment: Use of this assay is not recommended for patients undergoing treatment with eltrombopag due to the potential for falsely elevated results. Performed By: #### V IDH, ANEU, LIPID, [id number], FT3, FT4, GFR, ADIFF, [id number], CAION, TSH, CBC, CMP #### [place] [address] #### PROL, PTH #### [place] [address] BUN/Creatinine Ratio 12 ratio Normal 7-27 [facility] Comment on above: Performed By: #### V IDH, ANEU, LIPID, [id number], FT3, FT4, GFR, ADIFF, [id number], CAION, TSH, CBC, CMP #### [place] [address] #### PROL, PTH #### [address] [address] Calcium [Mass/Vol] 10.4 mg/dL High 8.4-10.2 [facility] Comment on above: Performed By: #### V IDH, ANEU, LIPID, [id number], FT3, FT4, GFR, ADIFF, [id number], CAION, TSH, CBC, CMP #### [place] [address] #### PROL, PTH #### [address] [address] Chloride [Moles/Vol] 105 mmol/L Normal 98-107 [facility] Comment on above: Performed By: #### V IDH, ANEU, LIPID, [id number], FT3, FT4, GFR, ADIFF, [id number], CAION, TSH, CBC, CMP #### [place] [address] #### PROL, PTH #### [address] [address] CO2 [Moles/Vol] 29 mmol/L Normal 23-31 [facility] Comment on above: Performed By: #### V IDH, ANEU, LIPID, [id number], FT3, FT4, GFR, ADIFF, [id number], CAION, TSH, CBC, CMP #### [place] [address] #### PROL, PTH #### [address] [address] Creatinine [Mass/Vol] 1.09 mg/dL Normal 0.70-1.30 [facility] Comment on above: Result Comment: Test ing performed on [employer] Dimension EXL analyzer using a modified kinetic Jody technique. Performed By: #### V IDH, ANEU, LIPID, [id number], FT3, FT4, GFR, ADIFF, [id number], CAION, TSH, CBC, CMP #### [place] [address] #### PROL, PTH #### [address] [address] Electrolyte Balance 7.0 mEq/L Normal 4.0-15.0 [facility] Comment on above: Performed By: #### V IDH, ANEU, LIPID, [id number], FT3, FT4, GFR, ADIFF, [id number], CAION, TSH, CBC, CMP #### [address] [address] #### PROL, PTH #### [address] [address] Globulin 3.5 G/dL Normal [facility] Comment on above: Performed By: #### V IDH, ANEU, LIPID, [id number], FT3, FT4, GFR, ADIFF, [id number], CAION, TSH, CBC, CMP #### [address] [address] #### PROL, PTH #### [place] [address] Glucose [Mass/Vol] 115 mg/dL Normal 80-115 [facility] Comment on above: Performed By: #### V IDH, ANEU, LIPID, [id number], FT3, FT4, GFR, ADIFF, [id number], CAION, TSH, CBC, CMP #### [address] [address] #### PROL, PTH #### [address] [address] Potassium [Moles/Vol] 4.7 mmol/L Normal 3.5-5.1 [facility] Comment on above: Performed By: #### V IDH, ANEU, LIPID, [id number], FT3, FT4, GFR, ADIFF, [id number], CAION, TSH, CBC, CMP #### [address] [address] #### PROL, PTH #### [place] [address] Sodium [Moles/Vol] 141 mmol/L Normal 136-145 [facility] Comment on above: Performed By: #### V IDH, ANEU, LIPID, [id number], FT3, FT4, GFR, ADIFF, [id number], CAION, TSH, CBC, CMP #### [address] [address] #### PROL, PTH #### [address] [address] Total Protein 7.7 G/dL Normal 6.4-8.2 [facility] Comment on above: Performed By: #### V IDH, ANEU, LIPID, [id number], FT3, FT4, GFR, ADIFF, [id number], CAION, TSH, CBC, CMP #### [address] [address] #### PROL, PTH #### [address] [address] Urea nitrogen [Mass/Vol] 13 mg/dL Normal 7-18 [facility] Comment on above: Performed By: #### V IDH, ANEU, LIPID, [id number], FT3, FT4, GFR, ADIFF, [id number], CAION, TSH, CBC, CMP #### [address] [address] #### PROL, PTH #### [address] [address] CRURon 01-03-2024 U Creatinine 152.1 mg/dL Normal 39.0-259.0 [facility] Comment on above: Performed By: #### C AUR #### [place] [address] #### CRUR #### [address] [address] E2on 01-03-2024 Estradiol Level 24.43 pg/mL Normal 0.00-39.80 [facility] Comment on above: Result Comment: No te - New Reference Range in effect 19 Adult Female E2 Reference Ranges: Follicular phase 19.5 - 144.2 pg/mL Midcycle 63.9 - 356.7 pg/mL Luteal phase 55.8 - 214.2 pg/mL Post menopausal 0 - 33.2 pg/mL Performed By: #### V IDH, ANEU, LIPID, [id number], FT3, FT4, GFR, ADIFF, [id number], CAION, TSH, CBC, CMP #### [address] [address] #### PROL, PTH #### [place] [address] FT3on 01-03-2024 Free T3 [Mass/Vol] 2.59 pg/mL Normal 2.30-4.00 [facility] Comment on above: Performed By: #### V IDH, ANEU, LIPID, [id number], FT3, FT4, GFR, ADIFF, [id number], CAION, TSH, CBC, CMP #### [address] [address] #### PROL, PTH #### [place] [address] FT4on 01-03-2024 Free T4 [Mass/Vol] 0.91 ng/dL Normal 0.76-1.46 [facility] Comment on above: Performed By: #### V IDH, ANEU, LIPID, [id number], FT3, FT4, GFR, ADIFF, [id number], CAION, TSH, CBC, CMP #### [address] [address] #### PROL, PTH #### [place] [address] LABORATORYOrdered By: Johan Duff on 01-03-2024 Calcium (U) [Mass/Vol] 14.0 mg/dL Invalid Interpretation Code ADM SS LABORATORYOrdered By: SYSTEM SYSTEM on 01-03-2024 Creatinine (U) [Mass/Vol] 152.1 mg/dL Normal 39 .0 - 259.0 mg/dL AO ADM SS 25-hydroxyvitamin D3 [Mass/Vol] 32.8 ng/mL Invalid Interpretation Code AO ADM SS Comment on above: Interpretive Data: I nterpretive Values Based on Total 25(OH) Vitamin D: Deficient <20 ng/mL Insufficient 20 - <30 ng/mL Sufficient 30-100 ng/mL Albumin BCP dye [Mass/Vol] 4.2 G/dL Normal 3.4 - 4.8 G/dL AO ADM SS Albumin/Globulin [Mass ratio] 1.2 {ratio} Normal 1.1 - 2.5 ratio AO ADM SS ALP [Catalytic activity/Vol] 103 U/L Normal 40 - 135 U/L AO ADM SS ALT With P-5'-P [Catalytic activity/Vol] 39 U/L Normal 16 - 63 U/L AO ADM SS AST With P-5'-P [Catalytic activity/Vol] 23 U/L Normal 10 - 40 U/L AO ADM SS Basophils (Bld) [#/Vol] 0.1 103/mcL Normal 0.0 - 0.2 10^3/mcL AO Workflow SS Basophils/100 WBC (Bld) 1.0 % Normal 0.0 - 2.5 % AO Workflow SS Bilirubin [Mass/Vol] 0.6 mg/dL Normal 0.2 - 1 .0 mg/dL AO ADM SS Comment on above: Interpretive Data: U se of this assay is not recommended for patients undergoing treatment with eltrombopag due to the potential for falsely elevated results. Calcium [Mass/Vol] 10.4 mg/dL High 8.4 - 10. 2 mg/dL AO ADM SS Chloride [Moles/Vol] 105 mmol/L Normal 98 - 10 7 mmol/L AO ADM SS CO2 [Moles/Vol] 29 mmol/L Normal 23 - 31 mmol/L AO ADM SS Creatinine [Mass/Vol] 1.09 mg/dL Normal 0.70 - 1.30 mg/dL AO ADM SS Comment on above: Interpretive Data: T esting performed on [employer] Dimension EXL analyzer using a modified kinetic Jody technique. E2 [Mass/Vol] 24.43 pg/mL Normal 0.00 - 39.80 pg/mL AH ADM SS Comment on above: Interpretive Data: * *Note - New Reference Range in effect 19 Adult Female E2 Reference Ranges: Follicular phase 19.5 - 144.2 pg/mL Midcycle 63.9 - 356.7 pg/mL Luteal phase 55.8 - 214.2 pg/mL Post menopausal 0 - 33.2 pg/mL Electrolyte Balance 7.0 mEq/L Normal 4.0 - 15 .0 mEq/L AO ADM SS Eosinophil, Absolute 0.2 103/mcL Normal 0.0 - 0 .7 10^3/mcL AO Workflow SS Eosinophils/100 WBC (Bld) 2.6 % Normal 0.0 - 7.0 % AO Workflow SS Erythrocyte distribution width (RBC) [Ratio] 15.2 % Normal 11.5 - 15.5 % AO Workflow SS Free T3 [Mass/Vol] 2.59 pg/mL Normal 2.30 - 4. 00 pg/mL AO ADM SS Free T4 [Mass/Vol] 0.91 ng/dL Normal 0.76 - 1. 46 ng/dL AO ADM SS GFR/1.73 sq M.predicted among blacks MDRD (S/P/Bld) [Vol rate/Area] 83 ml/min/1.73sqm Invalid Interpretation Code AO Chemistry S Comment on above: Interpretive Data: GFR Population mean for , Non- Americans Ages 20-29 = 116 mL/min/1.73 sq.m. Ages 30-39 = 107 mL/min/1.73 sq.m. Ages 40-49 = 99 mL/min/1.73 sq.m. Ages 50-59 = 93 mL/min/1.73 sq.m. Ages 60-69 = 85 mL/min/1.73 sq.m. Ages 70+ = 75 mL/min/1.73 sq.m. Chronic Kidney Disease: Less than 60 mL/min/1.73 square meters End Stage Renal Disease: Less than 15 mL/min/1.73 square meters GFR/1.73 sq M.predicted among non-blacks MDRD (S/P/Bld) [Vol rate/Area] 69 ml/min/1.73sqm Invalid Interpretation Code AO Chemistry S Comment on above: Interpretive Data: GFR Population mean for , Non- Americans Ages 20-29 = 116 mL/min/1.73 sq.m. Ages 30-39 = 107 mL/min/1.73 sq.m. Ages 40-49 = 99 mL/min/1.73 sq.m. Ages 50-59 = 93 mL/min/1.73 sq.m. Ages 60-69 = 85 mL/min/1.73 sq.m. Ages 70+ = 75 mL/min/1.73 sq.m. Chronic Kidney Disease: Less than 60 mL/min/1.73 square meters End Stage Renal Disease: Less than 15 mL/min/1.73 square meters Globulin 3.5 G/dL Invalid Interpretation Code AO ADM SS Glucose [Mass/Vol] 111 mg/dL Invalid Interpretation Code AO Chemistry S Comment on above: Interpretive Data: E stimated average glucose (eAG) is a calculated value from Hemoglobin A1C and is paper sales representative of the average blood glucose level in the last 2-3 month period. Normal range: less than 114 mg/dL Glucose [Mass/Vol] 115 mg/dL Normal 80 - 115 mg/dL AO ADM SS HbA1c (Bld) [Mass fraction] 5.5 % Normal 4.3 - 6.4 % AO ADM SS Hematocrit (Bld) [Volume fraction] 49.8 % Normal 40.0 - 52.0 % AO Workflow SS Hemoglobin (Bld) [Mass/Vol] 16.6 G/dL Normal 13.0 - 17.5 G/dL AO Workflow SS Lymphocytes (Bld) [#/Vol] 1.6 103/mcL Normal 0. 9 - 4.3 10^3/mcL AO Workflow SS Lymphocytes/100 WBC (Bld) 21.6 % Normal 20 .0 - 40.0 % AO Workflow SS Magnesium [Mass/Vol] 2.1 mg/dL Normal 1.8 - 2 .4 mg/dL AO ADM SS MCH (RBC) [Entitic mass] 29.8 pg Normal 27. 0 - 33.0 pg AO Workflow SS MCHC 33.3 G/dL Normal 32.0 - 36.0 G/dL AO Workflow SS MCV (RBC) [Entitic vol] 89.3 fL Normal 81.0 - 100.0 fL AO Workflow SS Monocytes (Bld) [#/Vol] 0.5 103/mcL Normal 0.1 - 1.4 10^3/mcL AO Workflow SS Monocytes/100 WBC (Bld) 7.3 % Normal 2.0 - 13.0 % AO Workflow SS Neutrophils (Bld) [#/Vol] 4.9 103/mcL Normal 2. 3 - 8.1 10^3/mcL AO Workflow SS Neutrophils/100 WBC (Bld) 67.5 % Normal 50 .0 - 75.0 % AO Workflow SS Parathyrin.intact [Mass/Vol] 50.7 pg/mL Normal 18.5 - 88.0 pg/mL AH ADM SS Phosphate [Mass/Vol] 3.1 mg/dL Normal 2.3 - 4 .1 mg/dL AO ADM SS Platelet mean volume (Bld) [Entitic vol] 7.3 fL Normal 6.4 - 10.5 fL AO Workflow SS Platelets (Bld) [#/Vol] 284 103/mcL Normal 150 - 450 10^3/mcL AO Workflow SS Potassium [Moles/Vol] 4.7 mmol/L Normal 3.5 - 5.1 mmol/L AO ADM SS Prolactin [Mass/Vol] 13.6 ng/mL Normal 2.0 - 1 8.0 ng/mL AH ADM SS Prostate specific Ag [Mass/Vol] 0.62 ng/mL Normal 0.00 - 4.00 ng/mL AO ADM SS Protein [Mass/Vol] 7.7 G/dL Normal 6.4 - 8.2 G/dL AO ADM SS RBC (Bld) [#/Vol] 5.58 106/mcL Normal 4.50 - 6.0 0 10^6/mcL AO Workflow SS Sodium [Moles/Vol] 141 mmol/L Normal 136 - 145 mmol/L AO ADM SS Testosterone [Mass/Vol] 106.55 ng/dL Normal 86.9 8 - 780.10 ng/dL AH ADM SS Comment on above: Interpretive Data: N ormal Reference Ranges for Females: Female Premenopause Dat34-972.01-47.94 ng/dL Female Postmenopause Obw23-83<7.00-45.62 ng/dL Thyroglobulin Ab IA Qn 22 unit/mL Normal 15 - 60 unit/mL ADM SS Comment on above: Interpretive Data: * *Note - New Reference Range in effect 19 TPO Ab IA Qn 545 unit/mL High 0 - 60 unit/mL ADM SS Comment on above: Interpretive Data: * *Note - New Reference Range in effect 19 TSH Qn 0.63 m[IU]/L Normal 0.36 - 3.74 mcIU/mL AO ADM SS Urea nitrogen [Mass/Vol] 13 mg/dL Normal 7 - 18 mg/dL AO ADM SS Urea nitrogen/Creatinine [Mass ratio] 12 ratio Normal 7 - 27 ratio AO ADM SS WBC (Bld) [#/Vol] 7.3 103/mcL Normal 4.5 - 10.8 10^3/mcL AO Workflow SS LABORATORYOrdered By: Meghann Argueta on 01-03-2024 Calcium Ionized 1.29 mmol/L Normal 1.12 - 1.32 mmol/L AO Rapid Comm SS Cholesterol [Mass/Vol] 234 mg/dL High 0 - 2 00 mg/dL AO ADM SS Comment on above: Interpretive Data: C holesterol Reference Interval: Less than 200 Desirable 200-239 Borderline high risk 240 and above High risk Cholesterol in HDL [Mass/Vol] 37 mg/dL Low 40 - 60 mg/dL AO ADM SS Cholesterol in LDL [Mass/Vol] 163 mg/dL High 0 - 130 mg/dL AO ADM SS Triglyceride [Mass/Vol] 169 mg/dL High 0 - 150 mg/dL AO ADM SS Comment on above: Interpretive Data: T riglyceride Reference Interval: Less than 150 Normal 150-199 Borderline high risk 200-499 High risk 500 or higher Very high risk LIPIDon 01-03-2024 Cholesterol [Mass/Vol] 234 mg/dL High 0-200 [facility] Comment on above: Result Comment: Chol esterol Reference Interval: Less than 200 Desirable 200-239 Borderline high risk 240 and above High risk Performed By: #### V IDH, ANEU, LIPID, [id number], FT3, FT4, GFR, ADIFF, [id number], CAION, TSH, CBC, CMP #### [address] [address] #### PROL, PTH #### [address] [address] Cholesterol in HDL [Mass/Vol] 37 mg/dL Low 40-60 [facility] Comment on above: Performed By: #### V IDH, ANEU, LIPID, [id number], FT3, FT4, GFR, ADIFF, [id number], CAION, TSH, CBC, CMP #### [address] [address] #### PROL, PTH #### [address] [address] Cholesterol in LDL [Mass/Vol] 163 mg/dL High 0-130 [facility] Comment on above: Performed By: #### V IDH, ANEU, LIPID, [id number], FT3, FT4, GFR, ADIFF, [id number], CAION, TSH, CBC, CMP #### [address] [address] #### PROL, PTH #### [place] [address] Triglyceride [Mass/Vol] 169 mg/dL High 0-150 [facility] Comment on above: Result Comment: Trig lyceride Reference Interval: Less than 150 Normal 150-199 Borderline high risk 200-499 High risk 500 or higher Very high risk Performed By: #### V IDH, ANEU, LIPID, [id number], FT3, FT4, GFR, ADIFF, [id number], CAION, TSH, CBC, CMP #### [place] [address] #### PROL, PTH #### [place] [address] MGon 01-03-2024 Magnesium [Mass/Vol] 2.1 mg/dL Normal 1.8-2.4 [facility] Comment on above: Performed By: #### V IDH, ANEU, LIPID, [id number], FT3, FT4, GFR, ADIFF, [id number], CAION, TSH, CBC, CMP #### [place] [address] #### PROL, PTH #### [place] [address] PHOSon 01-03-2024 Phosphate [Mass/Vol] 3.1 mg/dL Normal 2.3-4.1 [facility] Comment on above: Performed By: #### V IDH, ANEU, LIPID, [id number], FT3, FT4, GFR, ADIFF, [id number], CAION, TSH, CBC, CMP #### [place] [address] #### PROL, PTH #### [place] [address] PROLon 01-03-2024 Prolactin 13.6 ng/mL Normal 2.0-18.0 [facility] Comment on above: Performed By: #### V IDH, ANEU, LIPID, [id number], FT3, FT4, GFR, ADIFF, [id number], CAION, TSH, CBC, CMP #### [address] [address] #### PROL, PTH #### [address] [address] PSAon 01-03-2024 Prostate Specific Antigen 0.62 ng/mL Normal 0.00-4.00 [facility] Comment on above: Performed By: #### V IDH, ANEU, LIPID, [id number], FT3, FT4, GFR, ADIFF, [id number], CAION, TSH, CBC, CMP #### [address] [address] #### PROL, PTH #### [address] [address] PTHon 01-03-2024 PTH, Intact 50.7 pg/mL Normal 18.5-88.0 [facility] Comment on above: Performed By: #### V IDH, ANEU, LIPID, [id number], FT3, FT4, GFR, ADIFF, [id number], CAION, TSH, CBC, CMP #### [address] [address] #### PROL, PTH #### [address] [address] TESTOon 01-03-2024 Testosterone Lvl 106.55 ng/dL Normal 86.98-780.1 0 [facility] Comment on above: Result Comment: Norm al Reference Ranges for Females: Female Premenopause Age 21-60 9.01-47.94 ng/dL Female Postmenopause Age 45-89 <7.00-45.62 ng/dL Performed By: #### V IDH, ANEU, LIPID, [id number], FT3, FT4, GFR, ADIFF, [id number], CAION, TSH, CBC, CMP #### [address] [address] #### PROL, PTH #### [address] [address] THYABon 01-03-2024 anti-Thyroid Peroxidase 545 units/ml High 0-60 [facility] Comment on above: Result Comment: No te - New Reference Range in effect 19 Performed By: #### V IDH, ANEU, LIPID, [id number], FT3, FT4, GFR, ADIFF, [id number], CAION, TSH, CBC, CMP #### [place] [address] #### PROL, PTH #### [place] [address] Thyroglobulin Ab 22 units/ml Normal 15-60 [facility] Comment on above: Result Comment: No te - New Reference Range in effect 19 Performed By: #### V IDH, ANEU, LIPID, [id number], FT3, FT4, GFR, ADIFF, [id number], CAION, TSH, CBC, CMP #### [place] [address] #### PROL, PTH #### [place] [address] TSHon 01-03-2024 TSH Qn 0.63 m[IU]/L Normal 0.36-3.74 [facility] Comment on above: Performed By: #### V IDH, ANEU, LIPID, [id number], FT3, FT4, GFR, ADIFF, [id number], CAION, TSH, CBC, CMP #### [place] [address] #### PROL, PTH #### [place] [id number] VIDHon 01-03-2024 Vit. D 25-Hydroxy 32.8 ng/mL Normal [facility] Comment on above: Result Comment: Inte rpretive Values Based on Total 25(OH) Vitamin D: Deficient <20 ng/mL Insufficient 20 - <30 ng/mL Sufficient 30-100 ng/mL Performed By: #### V IDH, ANEU, LIPID, [id number], FT3, FT4, GFR, ADIFF, [id number], CAION, TSH, CBC, CMP #### [address] [place], [place] [address] #### PROL, PTH #### [facility] [address] [place] [address] Internal Medicine Office Vis gissell 12-23-2023 Internal Medicine Office Visit [facility] [address] [place], [place] [address] OFFICE VISIT Date of Service: 12/23/23 MR#: [id number] Acct: [id number] Name: JAYLEN QUEEN Rep #: [id number] : 1960 Provider: RUBI romano Age/Sex: 63/M Location: [facility] [place] Status: Signed Intake Vital Signs 10/15/23 09:21 12/23/23 09:55 Height 6 ft 2 in 6 ft 2 in Weight: 230 lb 234 lb BMI 29.5 30.0 BP 122/64 H 122/78 H Blood Pressure Location Lt brachial Lt brachial Position Sitting Sitting Respiration 16 18 Pulse 71 96 Pulse Source Monitor Monitor Temp 97.8 F 98.6 F Temp Source Temporal Temporal Pulse Oximetry (%) 98 94 Oxygen Delivery Method room air room air Intake Visit Reasons: LEFT EYE IRRITATION Chief Complaint: back pain Nurse Technician Required: No Is patient in pain?: No Allergies meperidine (From Demerol) Adverse Reaction (Intermediate, Verified 12/23/23 09:50) Nausea/Vom/Diarrhea Medications ???Medication ???Instructions ???Recorded ???Confirmed ???Type niacin 1,000 mg tablet,extended 1,000 mg PO QHS 01/30/23 12/23/23 History release rosuvastatin 10 mg tablet (Crestor) 10 mg PO DAILY 01/30/23 12/23/23 History aspirin 81 mg tablet,delayed 81 mg PO BREAKFAST #30 tabs 02/13/23 12/23/23 Rx release blood pressure monitor #1 ea 03/21/23 12/23/23 Rx triamcinolone acetonide 0.1 % 1 applic topical BID #80 grams 07/12/23 12/23/23 Rx topical cream rivaroxaban 20 mg tablet 20 mg PO QPM #90 tabs 09/13/23 12/23/23 Rx cyclobenzaprine 10 mg tablet 10 mg PO BID PRN muscle spasm #30 10/14/23 12/23/23 Rx tabs meloxicam 15 mg tablet 15 mg PO DAILY #20 tabs 10/15/23 12/23/23 Rx fenofibrate 160 mg tablet 160 mg PO DAILY #90 tabs 10/25/23 12/23/23 Rx tamsulosin 0.4 mg capsule 0.4 mg PO DAILY #90 caps 10/25/23 12/23/23 Rx cabergoline 0.5 mg tablet 0.5 mg PO 2XW #30 tabs 11/06/23 12/23/23 Rx levothyroxine 100 mcg tablet 100 mcg PO DAILY #90 tabs 11/06/23 12/23/23 Rx tadalafil 5 mg tablet 5 mg PO DAILY #90 tabs 12/03/23 12/23/23 Rx erythromycin 5 mg/gram (0.5 %) eye 0.5 inch ophthalmic (eye) BID 5 12/23/23 12/23/23 Rx ointment days #3.5 grams Nurse's Note: L eye affectedc. States he had a stye origionally and it bursted yesterday, has been having swelling which is causing a headache. Has some itching. Has been using otc eye drops. States he did have discharge yesterday which caused pain, the discharge was yellow. Denies light sensitivity or visual disturbances. [facility] Medical History Kidney pain Pituitary abnormality Liver disease Hearing problem Back problem Wears hearing aid Loss of hearing MRSA infection Marijuana use Thyroid disease History of renal disease High cholesterol DVT (deep venous thrombosis) History of diverticulitis Smoker History of edema 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) Small bowel diverticular disease Surgical History History of colon resection Hx of tonsillectomy H/O knee surgery Hx of colonoscopy Hx of cholecystectomy Social History Smoking Status: Current some day smoker tobacco type: cigarettes Tobacco: How many years used: 30 how long ago did patient quit smokin-6months ago alcohol intake: current substance use type: does not use what type of physical activity do you participate in: none HPI HPI Chief Complaint: back pain Details: JAYLEN QUEEN, is a 63 M who presents to the office today for an acute visit for left eye discomfort. Patient reports the development of a stye to his left upper internal eyelid x 3 days. He reports yesterday he was pushing on the area when the stye spontaneously ruptured draining yellow pus. He reports he continues to have redness, and itching to the area. He denies injury or known foreign body to left eye. He denies visual changes, pain with range of motion of left eye, foreign body sensation, or discharge from his eye. He does not wear contacts. He denies fever, or redness surrounding left orbit. No recent viral or bacterial infections to his knowledge. He reports he leaves for vacation next week and wants the stye to be gone. ROS Const Constitutional: No body ache, chills, excessive sweating, fatigue, fever(s), frequent falls, headache(s), snoring, weakness, sleep problems or change in appetite Eyes Eyes: Positive for irritation, discharge and other; No blurry vision, change in vision, eye pain or Light sensitivity ENT ENT: No abnormal hearing, ear or mastoid pain, tinnitus, nasal congestion, headache(s), neck pain or sore throat Resp Respiratory: No cough, shortness of breath, snoring or wheezing Cardio Cardiology: No chest pain at rest, ch (more content not included)... Normal [facility] 36on 11-25-2023 36 Thanks so much hemant! Normal [facility] 36 We received a fax stating that the patients testosterone needs a PA , could you please assist? Normal [facility] Internal Medicine Office Vis iton 10-15-2023 Internal Medicine Office Visit [facility] [address] [place] [address] [place] [address] OFFICE VISIT Date of Service: 10/15/23 MR#: [id number] Acct: [id number] Name: JAYLEN QUEEN Rep #: [id number] : 1960 Provider: Dr. Justice gurllon, DO Age/Sex: 63/M Location[place] [facility] [place] Status: Signed Intake Vital Signs 10/10/23 09:29 10/15/23 09:21 Height 6 ft 2 in 6 ft 2 in Weight: 230 lb 6 oz 230 lb BMI 29.5 29.5 BP 140/82 H 122/64 H Blood Pressure Location Lt brachial Lt brachial Position Sitting Sitting Respiration 18 16 Pulse 93 71 Pulse Source Monitor Monitor Temp 98.5 F 97.8 F Temp Source Temporal Temporal Pulse Oximetry (%) 97 98 Oxygen Delivery Method room air room air Intake Visit Reasons: Flank pain Chief Complaint: back pain Nurse Technician Required: No Accompanied by: Self Is patient in pain?: No Allergies meperidine (From Demerol) Adverse Reaction (Intermediate, Verified 10/15/23 09:15) Nausea/Vom/Diarrhea Medications ???Medication ???Instructions ???Recorded ???Confirmed ???Type cabergoline 0.5 mg tablet 0.5 mg PO 2XW 01/30/23 10/15/23 History fenofibrate 160 mg tablet 160 mg PO DAILY 01/30/23 10/15/23 History niacin 1,000 mg tablet,extended 1,000 mg PO QHS 01/30/23 10/15/23 History release rosuvastatin 10 mg tablet (Crestor) 10 mg PO DAILY 01/30/23 10/15/23 History aspirin 81 mg tablet,delayed 81 mg PO BREAKFAST #30 tabs 02/13/23 10/15/23 Rx release blood pressure monitor #1 ea 03/21/23 10/15/23 Rx tadalafil 5 mg tablet 5 mg PO DAILY #90 tabs 04/22/23 10/15/23 Rx tamsulosin 0.4 mg capsule 0.4 mg PO DAILY #90 caps 04/22/23 10/15/23 Rx levothyroxine 100 mcg tablet 100 mcg PO DAILY #90 tabs 05/21/23 10/15/23 Rx triamcinolone acetonide 0.1 % 1 applic topical BID #80 grams 07/12/23 10/15/23 Rx topical cream rivaroxaban 20 mg tablet 20 mg PO QPM #90 tabs 09/13/23 10/15/23 Rx amoxicillin 500 mg capsule 500 mg PO TID #30 caps 10/10/23 10/15/23 Rx cyclobenzaprine 10 mg tablet 10 mg PO BID PRN muscle spasm #30 10/14/23 10/15/23 Rx tabs meloxicam 15 mg tablet 15 mg PO DAILY #20 tabs 10/15/23 10/15/23 Rx [facility] Medical History Kidney pain Pituitary abnormality Liver disease Hearing problem Back problem Wears hearing aid Loss of hearing MRSA infection Marijuana use Thyroid disease History of renal disease High cholesterol DVT (deep venous thrombosis) History of diverticulitis Smoker History of edema 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) Small bowel diverticular disease Surgical History History of colon resection Hx of tonsillectomy H/O knee surgery Hx of colonoscopy Hx of cholecystectomy Social History Smoking Status: Current some day smoker tobacco type: cigarettes Tobacco: How many years used: 30 how long ago did patient quit smokin-6months ago alcohol intake: current substance use type: does not use what type of physical activity do you participate in: none HPI HPI Chief Complaint: back pain Details: JAYLEN QUEEN, is a 63 M who presents to the office today for pain in the low back. He was seen last week and had some leukocytes in his urine but today his urine is totally clear. And now his com plaint is right lumbosacral pain certainly not in the area of the kidneys. ROS Const Constitutional: No body ache, chills, excessive sweating, fatigue, fever(s), frequent falls, headache(s), snoring, weakness or change in appetite Eyes Eyes: No blurry vision, change in vision, eye pain or Light sensitivity ENT ENT: No abnormal hearing, ear or mastoid pain, tinnitus, nasal congestion, headache(s), neck pain or sore throat Resp Respiratory: No cough, shortness of breath, snoring or wheezing Cardio Cardiology: No chest pain at rest, chest pain with exertion, excessive sweating, dyspnea on exertion, lightheadedness, orthopnea or palpitations Gastro GI: No abdominal pain, change in bowel habits, constipation, cramping, diarrhea, nausea/dyspepsia or vomiting Genitourinary Male: No burning urination, painful urination, urinary incontinence or urinary frequency Musc Musculoskeletal: No abnormal gait, joint pain, back pain, limited range of motion, muscle weakness, neck pain or numbness Skin Skin: No dry skin, redness, lesions, itchy eyes, rash or wounds Neuro Neurology: No abnormal gait, abnormal hearing, weakness, frequent falls, headache(s), memory loss or numbness Psych Psychiatric: No anxiety, No change in appetite, No depression, No memory loss and No Thoughts of harming yourself/Others Endo Endocrine: No cold intolerance, excessive sweating, fatigue, flushing, heat intolerance, increas (more content not included)... Normal [facility] Internal Medicine Office Vis gissell 10-10-2023 Internal Medicine Office Visit [facility] [address] [place] [address] [place] [address] OFFICE VISIT Date of Service: 10/10/23 MR#: [id number] Acct: [id number] Name: JAYLEN QUEEN Rep #: [id number] : 1960 Provider: Dr. Justice grullon, DO Age/Sex: 63/M Location: [facility] [place] Status: Signed Intake Vital Signs 09/20/23 08:53 10/10/23 09:29 Height 6 ft 2 in 6 ft 2 in Weight: 236 lb 230 lb 6 oz BMI 30.2 29.5 BP 144/72 H 140/82 H Blood Pressure Location Lt brachial Lt brachial Position Sitting Sitting Respiration 17 18 Pulse 92 93 Pulse Source Monitor Monitor Temp 97.1 F L 98.5 F Temp Source Temporal Temporal Pulse Oximetry (%) 96 97 Oxygen Delivery Method room air room air Intake Visit Reasons: rt kidney pain Chief Complaint: rt kidney pain Nurse Technician Required: No Accompanied by: Self Is patient in pain?: Yes Allergies meperidine (From Demerol) Adverse Reaction (Intermediate, Verified 10/10/23 09:25) Nausea/Vom/Diarrhea Medications ???Medication ???Instructions ???Recorded ???Confirmed ???Type cabergoline 0.5 mg tablet 0.5 mg PO 2XW 01/30/23 10/10/23 History fenofibrate 160 mg tablet 160 mg PO DAILY 01/30/23 10/10/23 History niacin 1,000 mg tablet,extended 1,000 mg PO QHS 01/30/23 10/10/23 History release rosuvastatin 10 mg tablet (Crestor) 10 mg PO DAILY 01/30/23 10/10/23 History aspirin 81 mg tablet,delayed 81 mg PO BREAKFAST #30 tabs 02/13/23 10/10/23 Rx release blood pressure monitor #1 ea 03/21/23 10/10/23 Rx tadalafil 5 mg tablet 5 mg PO DAILY #90 tabs 04/22/23 10/10/23 Rx tamsulosin 0.4 mg capsule 0.4 mg PO DAILY #90 caps 04/22/23 10/10/23 Rx levothyroxine 100 mcg tablet 100 mcg PO DAILY #90 tabs 05/21/23 10/10/23 Rx triamcinolone acetonide 0.1 % 1 applic topical BID #80 grams 07/12/23 10/10/23 Rx topical cream rivaroxaban 20 mg tablet 20 mg PO QPM #90 tabs 09/13/23 10/10/23 Rx amoxicillin 500 mg capsule 500 mg PO TID #30 caps 10/10/23 10/10/23 Rx PFSH Medical History Kidney pain Pituitary abnormality Liver disease Hearing problem Back problem Wears hearing aid Loss of hearing MRSA infection Marijuana use Thyroid disease History of renal disease High cholesterol DVT (deep venous thrombosis) History of diverticulitis Smoker History of edema 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) Small bowel diverticular disease Surgical History History of colon resection Hx of tonsillectomy H/O knee surgery Hx of colonoscopy Hx of cholecystectomy Social History Smoking Status: Current some day smoker tobacco type: cigarettes Tobacco: How many years used: 30 how long ago did patient quit smokin-6months ago alcohol intake: current substance use type: does not use what type of physical activity do you participate in: none HPI HPI Chief Complaint: rt kidney pain Details: JAYLEN QUEEN, is a 63 M who presents to the office today for right flank pain. Patient has had this for couple of days and is very concerned because he had a bout of right pyelonephritis and was admitted to the hospital several years ago. He denies any urinary symptoms such as frequency or burning. He is not febrile. ROS Const Constitutional: No body ache, chills, excessive sweating, fatigue, fever(s), frequent falls, headache(s), snoring, weakness or change in appetite Eyes Eyes: No blurry vision, change in vision, eye pain or Light sensitivity ENT ENT: No abnormal hearing, ear or mastoid pain, tinnitus, nasal congestion, headache(s), neck pain or sore throat Resp Respiratory: No cough, shortness of breath, snoring or wheezing Cardio Cardiology: No chest pain at rest, chest pain with exertion, excessive sweating, dyspnea on exertion, lightheadedness, orthopnea or palpitations Gastro GI: No abdominal pain, change in bowel habits, constipation, cramping, diarrhea, nausea/dyspepsia or vomiting Genitourinary Male: No burning urination, painful urination, urinary incontinence or urinary frequency Musc Musculoskeletal: No abnormal gait, joint pain, back pain, limited range of motion, muscle weakness, neck pain or numbness Skin Skin: No dry skin, redness, lesions, itchy eyes, rash or wounds Neuro Neurology: No abnormal gait, abnormal hearing, weakness, frequent falls, headache(s), memory loss or numbness Psych Psychiatric: No anxiety, No change in appetite, No depression, No memory loss and No Thoughts of harming yourself/Others Endo Endocrine: No cold intolerance, excessive sweating, fatigue, flushing, heat intolerance, increased thirst/drinking or increased hunger Aller/Imm Allergy/Immunologic: No itchy eyes, seasonal al (more content not included)... Normal [facility] Internal Medicine Office Vis gissell 09-20-2023 Internal Medicine Office Visit [facility] [address] [place] [address] [place] [address] OFFICE VISIT Date of Service: 09/20/23 MR#: [id number] Acct: [id number] Name: JAYLEN QUEEN Rep #: [id number] : 1960 Provider: RUBI romano Age/Sex: 63/M Location: [facility] [place] Status: Signed Intake Vital Signs 03/21/23 08:44 06/06/23 10:56 09/20/23 08:53 Height 6 ft 2 in 6 ft 2 in 6 ft 2 in Weight: 236 lb BMI 30.2 BP 144/72 H Blood Pressure Location Lt brachial Position Sitting Respiration 17 Pulse 92 Pulse Source Monitor Temp 97.1 F L Temp Source Temporal Pulse Oximetry (%) 96 Oxygen Delivery Method room air Intake Visit Reasons: 6 m fu Chief Complaint: 6 M FU Is patient in pain?: No Allergies meperidine (From Demerol) Adverse Reaction (Intermediate, Verified 09/20/23 08:52) Nausea/Vom/Diarrhea Medications ???Medication ???Instructions ???Recorded ???Confirmed ???Type cabergoline 0.5 mg tablet 0.5 mg PO 2XW 01/30/23 09/20/23 History fenofibrate 160 mg tablet 160 mg PO DAILY 01/30/23 09/20/23 History niacin 1,000 mg tablet,extended 1,000 mg PO QHS 01/30/23 09/20/23 History release rosuvastatin 10 mg tablet (Crestor) 10 mg PO DAILY 01/30/23 09/20/23 History aspirin 81 mg tablet,delayed 81 mg PO BREAKFAST #30 tabs 02/13/23 09/20/23 Rx release blood pressure monitor #1 ea 03/21/23 09/20/23 Rx tadalafil 5 mg tablet 5 mg PO DAILY #90 tabs 04/22/23 09/20/23 Rx tamsulosin 0.4 mg capsule 0.4 mg PO DAILY #90 caps 04/22/23 09/20/23 Rx levothyroxine 100 mcg tablet 100 mcg PO DAILY #90 tabs 05/21/23 09/20/23 Rx triamcinolone acetonide 0.1 % 1 applic topical BID #80 grams 07/12/23 09/20/23 Rx topical cream rivaroxaban 20 mg tablet 20 mg PO QPM #90 tabs 09/13/23 09/20/23 Rx Have you fallen in the past year?: No PFSH Medical History Kidney pain Pituitary abnormality Liver disease Hearing problem Back problem Wears hearing aid Loss of hearing MRSA infection Marijuana use Thyroid disease History of renal disease High cholesterol DVT (deep venous thrombosis) History of diverticulitis Smoker History of edema 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) Small bowel diverticular disease Surgical History History of colon resection Hx of tonsillectomy H/O knee surgery Hx of colonoscopy Hx of cholecystectomy Social History Smoking Status: Current some day smoker tobacco type: cigarettes Tobacco: How many years used: 30 how long ago did patient quit smokin-6months ago alcohol intake: current substance use type: does not use what type of physical activity do you participate in: none HPI HPI Chief Complaint: 6 M FU Details: JAYLEN QUEEN, is a 63 M who presents to the office today for 6-month follow-up appointment. Patient has a past medical history of hypothyroidism. He takes his Synthroid on an empty stomach in the morning. Denies signs or symptoms of hypo-/hyperthyroidism . Patient has past medical history of DVT of iliac vein status post venogram and thrombectomy 02/14/2024. He follows with vascular surgery and remains on Xarelto and aspirin. He was able to discontinue Plavix. He denies unusual bleeding related to anticoagulant use. He is utilizing compression stockings and feels these are working well to control his extremity edema. He did recently have repeat lower extremity venous reflux study which showed new acute on chronic DVT in the previous stented region. This will be monitored by vascular surgery. He was also diagnosed with venous stasis dermatitis and prescribed triamcinolone cream which she reports did help significantly. He additionally has past medical history of pituitary tumor and follows with endocrinology at [facility] [place] [facility]. He is treated with cabergoline. He does report that his private banker will be leaving her current practice and request a referral to a local private banker. He is compliant with his medications. He does report he recently had imaging performed. Past medical history of pyelonephritis. He was last evaluated for right flank pain in May 2023. CT performed at that time did not demonstrate pyelonephritis. He reports he has not had any symptoms of pain, dysuria, nausea since. He continues to use cigarettes. He has no concerns today. He declines refills. ROS Const Constitutional: No body ache, chills, excessive sweating, fatigue, fever(s), frequent falls, headache(s), snoring, weight change, sleep problems, abnormal sleep pattern or change in appetite Eyes Eyes: No blurry vision, change in vision, eye pain or Light sensitivity ENT ENT: No abnormal hearing, ear or mastoid pain, tinnitus, nasal (more content not included)... Normal [facility] 36on 08-01-2023 36 Message released to patient as written. Patient's further questions if applicable: Patient voiced understanding. Stated he will pick his medication up tomorrow. Please have clinical team call patient to schedule to have testosterone levels checked. Were all questions from office addressed or relayed to the patient from encounter: Yes Normal [facility] 36 Tried calling elvia molina and left a voice message for call back. Results of recent labs show normal prolactin, thyroid functions-patient is to continue current dose of cabergoline and levothyroxine. Testosterone remains low-I have sent prescription for testosterone gel to his pharmacy. Patient is to have testosterone levels checked 2 months after starting testosterone treatment Normal [facility] Office Visiton 07-31-2023 Follow-up visit [id number] EvangelistFlower sebastien Montano 1960 M Date Provider Department Center 07/31/2023 [id number] APPUSW*[facility] END None Family History Adopted: Yes Problem Relation Age of Onset No Known Problems Father Cancer Mother Comments: lung Family Status - Relation Status Age at Father Mother Level of Service:61598 IN OFFICE/OUTPATIENT ESTABLISHED MOD MDM 30 MIN Reason for Visit and Comments: Follow-up [271627] - Macroprolactinoma Hypothyroidism [143] Normal [facility] Progress Noteon 07-31-2023 Progress Note [facility] [address] [facility] [address] Dept: [phone] Dept Loc: [phone] Visit type: Established Reason for Visit: Follow-up (Macroprolactinoma) and Hypothyroidism Assessment and Plan 1. Pituitary adenoma (HCC) - Prolactin - Creatinine, Serum - MR pituitary w and wo IV contrast 2. Hypercalcemia - DEXA bone density axial skeleton 3. 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 Hypogonadotropic hypogonadism (HCC) - Testosterone - Hemoglobin and hematocrit, blood 1. Pituitary macroadenoma-prolacti noma - Overall pituitary tumor had decreased in size since 2013 and remained stable in most recent MRI in 2021 - current regimen: cabergoline 0.5 mg 1.5 tabs 2 days a week - recheck prolactin - check Pituitary MRI - advised to complete formal Visual field examination - Clinically no Compressive symptoms - Further management will be based on the above labs 2.Hypogonadotrophic Hypogonadism: - Hypogonadotrophic hypogonadism despite optimization of prolactin levels since 2014 - Work up in 2022 continued to show testosterone of 103 with low normal LH/FSH and patient was started on Androgel 1.62% (20.25 Mg) 2 pumps once a day -Patient took this for 2 months and ran out. Had noticed improvement in energy levels and libido while on this medication - Repeat testosterone levels - Baseline PSA is normal 3. Stanley's hypothyroidism - Positive TPO antibodies 06/2012, 99.8 - Current regimen: Levothyroxine 100 mcg daily - Check thyroid functions 3.Hypercalcemia - Patient has had mild intermittent hypercalcemia since at least 2018, PTH levels checked have been inappropriately normal with concurrent normal vitamin D renal functions suggestive of primary hyperparathyroidism In the past hypercalcemia was attributed to lab assay, increase dietary intake of calcium - Work-up done in the past showed normal SPEP and 24 hour urine calcium spillage - Last bone density was normal. Repeat bone density and if this is normal we will continue with surveillance I reviewed: laboratory results reviewed: Yes radiographic reports reviewed: Yes I reviewed the radiographic images personally at the time of today's visit: Yes Pt was advised of the results. Records from outside facility/PCP office to be requested: No Scripts sent to pharmacy of pt choice: Yes Follow up in about 6 months (around 01/30/2024). Subjective HPI PCP is Silvestre Sexton Previous New Patient Escort: Dr Sal & Dr Benito [facility] Last office visit: 1.Prolactinoma - Pituitary Macroadenoma: 2.Hypogonadotrophic Hypogonadism: This was diagnosed in 10/2012 when he had presented with headaches , double vision to [facility] and pituitary MRI had shown a 3 cm macroadenoma. Overall pituitary testing in the past had normal IGF-I, normal cortisol and ACTH. Hypogonadotrophic hypogonadism despite optimization of prolactin levels since 2014 Work up in 2022 continued to show testosterone of 103 with low normal LH/FSH and patient was started on Androgel 1.62% (20.25 Mg) 2 pumps once a day -Patient took this for 2 months and ran out. Had noticed improvement in energy levels and libido while on this medication He has never used testosterone in the past otherwise He does not have history of prostate cancer He is adopted and does not know his family history He is a current smoker and is in the process of quitting Most recent pituitary imaging from 2021 showed an enhancing sellar mass unchanged in size compared to 2019 measuring 1.7 x 2.2 x 1.7 cm with possible extension into right cavernous sinus, no significant suprasellar extension. Optic chiasm is unremarkable He has been on cabergoline since 2013 - current regimen: cabergoline 0.5 mg 1.5 tabs 2 days a week Headaches: No Changes in vision: No Loss of vision: No Problems in blind spots: No Excessive/Constant clear rhinorrhea: No No galactorrhea Problems w/ libido: No Hormone Eval Completed: Yes Patient mentions that formal ophthalmologic evaluation was a few years ago. He is supposed to have followed up with service order expediter Dr. Monge , but has missed his follow-up. No history of pituitary surgeries No history of radiation therapy to the brain No previous malignancy No history of chemotherapy No previous head trauma No history of steroid, narcotic use Primary hypothyroidism: Positive TPO antibodies 06/2012, 99.8 Current regimen: Levothyroxine 100 mcg daily Review of Systems Constitutional: Positive for fatigue. Negative for unexpected weight change. Gastrointestinal: Negative for constipation and diarrhea. Endocrine: Negative for cold intolerance and heat intolerance. An entire ROS was performed at the time of this encounter. Unless noted above in the HPI, the ROS is negative. Al (more content not included)... Normal [facility] 36on 06-19-2023 36 We have been unable to reach your patient to schedule their testing. Test Name: Complete PFT pre and post bronchodilator 1st Attempt: 06/15/2023 mychart message 2nd Attempt: 06/19/2023 LVM. Normal [facility] Basophil percentageOrdered B y: Bull Lopez on 06-10-2023 Chloride [Moles/Vol] 107 mmol/L 98-107 [facility] Glucose [Mass/Vol] 92 mg/dL 74-106 [facility] Potassium [Moles/Vol] 4.1 mmol/L 3.5-5.1 [facility] [facility] Sodium [Moles/Vol] 136 mmol/L 136-145 [facility] Laboratory - Chemistry and C hemistry - challengeOrdered By: Bull Lopez on 06-10-2023 CO2 [Moles/Vol] 24.0 mmol/L 21.0-32.0 [facility] Urea nitrogen/Creatinine [Mass ratio] 16.8 mg/mg 10-20 [facility] No Panel InformationOrdered By: Bull Lopez on 06-10-2023 Estimated GFR (MDRD) Amer 80 mL/min >60 [facility] Comment on above: GFR Calc Estimated GFR (MDRD) Non-Af Amer 66 mL/min >60 [facility] Comment on above: Non- GFR Calc Serum or plasma calcium jamila urement (mass/volume)Ordered By: Bull Lopez on 06-10-2023 Calcium [Mass/Vol] 10.3 mg/dL 8.5-10.1 [facility] Serum or plasma creatinine m easurement (mass/volume)Ordered By: Bull Lopez on 06-10-2023 Creatinine [Mass/Vol] 1.19 mg/dL 0.70-1.30 [facility] Comment on above: The validity of the calculated GFR & GFRAA in patients over 70 years has not been determined. Clinical correlation is essential. Serum or plasma urea nitroge n measurement (mass/volume)Ordered By: Bull Lopez on 06-10-2023 Urea nitrogen [Mass/Vol] 20 mg/dL 7-18 [facility] Thin prep Papanicolaou smear with manual screeningOrdered By: Bull Lopez on 06-10-2023 Thin prep Papanicolaou smear with manual screening 5 5-15 [facility] Absolute lymphocyte countOrd ered By: Sanjana Hale on 06-06-2023 Lymphocytes Auto (Unsp spec) [#/Vol] 0.81 10*3/uL 0.83-4.51 [facility] Automated lymphocyte count a s percentage of total leukocytesOrdered By: Sanjana Hale on 06-06-2023 Lymphocytes/100 WBC Auto (Unsp spec) 14.3 % 19-41 [facility] Basophil percentageOrdered B y: Sanjana Hale on 06-06-2023 Basophil percentage 0 SEEN /hpf 0-5 [facility] Basophils/100 WBC (Bld) 0.9 % 0-1 [facility] Bilirubin [Mass/Vol] 0.40 mg/dL 0.20-1.00 [facility] Comment on above: For patients on eltr ombopag therapy, use of Dimension [place] TBIL is not recommended. Chloride [Moles/Vol] 109 mmol/L 98-107 [facility] Eosinophils/100 WBC (Bld) 1.8 % 0-5 [facility] Glucose [Mass/Vol] 95 mg/dL 74-106 [facility] Hemoglobin (Bld) [Mass/Vol] 14.9 g/dL 13.0-16.5 [facility] Monocytes/100 WBC (Bld) 10.6 % 0-10 [facility] Neutrophils (Bld) [#/Vol] 4.1 10*3/uL 2.0-7.7 [facility] Neutrophils/100 WBC (Bld) 71.7 % 47-70 [facility] Potassium [Moles/Vol] 4.3 mmol/L 3.5-5.1 [facility] Protein [Mass/Vol] 8.2 g/dL 6.4-8.2 [facility] Sodium [Moles/Vol] 136 mmol/L 136-145 [facility] WBC (Bld) [#/Vol] 5.7 10*3/uL 4.4-11.0 [facility] Bilirubin Test strip Ql (U)O rdered By: Sanjana Hale on 06-06-2023 Bilirubin Ql (U) Negative Negative [facility] Culture, urineOrdered By: Evelyn Hale on 06-06-2023 Bacteria identified Cx Nom (U) Culture exhibits no growth. [facility] Determination of erythrocyte mean corpuscular volume (MCV)Ordered By: Sanjana Hale on 06-06-2023 MCV (RBC) [Entitic vol] 88.5 fL 80-94 [facility] Erythrocyte distribution wid th ratioOrdered By: Sanjana Hale on 06-06-2023 Erythrocyte distribution width (RBC) [Ratio] 13.5 % 11.6-14.6 [facility] Erythrocyte distribution wid th standard deviationOrdered By: Sanjana Hale on 06-06-2023 Erythrocyte distribution width (RBC) [Entitic vol] 43.7 fL 35.1-43.9 [facility] Hematocrit Auto (Bld) [Volum e fraction]Ordered By: Sanjana Hale on 06-06-2023 Hematocrit (Bld) [Volume fraction] 45.6 % 40-54 [facility] Immature granulocytes/100 WB C Auto (Bld)Ordered By: Sanjana Hale on 06-06-2023 Immature granulocytes/100 WBC (Bld) 0.700 % 0.0-0.9 [facility] Comment on above: IG% - Immature Granu locytes (promyelocytes, myelocytes and metamyelocytes) > 1% indicates that a LEFT SHIFT is Present. Ketones Test strip Ql (U)Ord ered By: Sanjana Hale on 06-06-2023 Ketones Ql (U) Negative Negative [facility] Laboratory - Chemistry and C hemistry - challengeOrdered By: Sanjana Hale on 06-06-2023 Albumin/Globulin [Mass ratio] 1.1 {ratio} 0.9-2.4 [facility] ALP [Catalytic activity/Vol] 53 U/L 45-117 [facility] ALT [Catalytic activity/Vol] 19 U/L 16-61 [facility] CO2 [Moles/Vol] 25.0 mmol/L 21.0-32.0 [facility] Globulin (S) [Mass/Vol] 3.9 g/dL 2.2-4.2 [facility] Urea nitrogen/Creatinine [Mass ratio] 13.3 mg/mg 10-20 [facility] Laboratory - Hematology and Cell countsOrdered By: Sanjana Hale on 06-06-2023 MCH (RBC) [Entitic mass] 28.9 pg 27.0-32.0 [facility] MCHC (RBC) [Mass/Vol] 32.7 g/dL 32-36 [facility] Nucleated RBC/100 WBC (Bld) [Ratio] 0 % 0-5 [facility] Platelet mean volume (Bld) [Entitic vol] 9.5 fL 6.2-12.0 [facility] Platelets (Bld) [#/Vol] 237 10*3/uL 150-450 [facility] Mucus LM Ql (Urine sed)Order ed By: Sanjana Hale on 06-06-2023 Mucus Ql (Urine sed) 0 SEEN /hpf [facility] Nitrite Test strip Ql (U)Ord ered By: Sanjana Hale on 06-06-2023 Nitrite Ql (U) Negative Negative [facility] No Panel InformationOrdered By: Sanjana Hale on 06-06-2023 Estimated GFR (MDRD) Amer 73 mL/min >60 [facility] Comment on above: GFR Calc Estimated GFR (MDRD) Non-Af Amer 61 mL/min >60 [facility] Comment on above: Non- GFR Calc Urine RBC 0 SEEN /hpf 0-5 [facility] Protein Test strip Ql (U)Ord ered By: Sanjana Hale on 06-06-2023 Protein Ql (U) Negative Negative [facility] RBC Auto (Bld) [#/Vol]Ordere d By: Sanjana Hale on 06-06-2023 RBC (Bld) [#/Vol] 5.15 10*6/uL 4.6-6.2 [facility] Serum or plasma calcium jamila urement (mass/volume)Ordered By: Sanjana Hale on 06-06-2023 Calcium [Mass/Vol] 10.9 mg/dL 8.5-10.1 [facility] Serum or plasma creatinine m easurement (mass/volume)Ordered By: Sanjana Hale on 06-06-2023 Creatinine [Mass/Vol] 1.28 mg/dL 0.70-1.30 [facility] Comment on above: The validity of the calculated GFR & GFRAA in patients over 70 years has not been determined. Clinical correlation is essential. Serum or plasma urea nitroge n measurement (mass/volume)Ordered By: Sanjana Hale on 06-06-2023 Urea nitrogen [Mass/Vol] 17 mg/dL 7-18 [facility] Squamous epithelial cells de tection in urine sediment by light microscopyOrdered By: Sanjana Hale on 06-06-2023 Epithelial cells.squamous LM Ql (Urine sed) 0 SEEN /hpf 0-5 [facility] Thin prep Papanicolaou smear with manual screeningOrdered By: Sanjana Hale on 06-06-2023 Thin prep Papanicolaou smear with manual screening 4.3 g/dL 3.2-5.0 [facility] Thin prep Papanicolaou smear with manual screening 20 U/L 15-37 [facility] Thin prep Papanicolaou smear with manual screening 2 5-15 [facility] Urine blood detectionOrdered By: Sanjana Hale on 06-06-2023 RBC Ql (U) Negative Negative [facility] Urine clarityOrdered By: Kaylin Hale on 06-06-2023 Clarity (U) Clear Clear [facility] Urine color determinationOrd ered By: Sanjana Hale on 06-06-2023 Color (U) Yellow Yellow [facility] Urine glucose detectionOrder ed By: Sanjana Hale on 06-06-2023 Glucose Ql (U) Normal mg/dl Normal [facility] Urine leukocyte esterase det ection by dipstickOrdered By: Sanjana Hale on 06-06-2023 Leukocyte esterase Test strip Ql (U) Negative Negative [facility] Urine pHOrdered By: Sanjana oates on 06-06-2023 pH (U) 6.0 [pH] 5.0 - 8.0 [facility] Urine sediment bacteria coun t by microscopy (number/high power field)Ordered By: Sanjana Hale on 06-06-2023 Bacteria LM.HPF (Urine sed) [#/Area] 0 /[HPF] None Seen [facility] Urine specific gravity measu rementOrdered By: Sanjana Hale on 06-06-2023 Specific gravity (U) [Rel density] 1.015 1.002-1.030 [facility] Urine urobilinogen measureme ntOrdered By: Sanjana Hale on 06-06-2023 Urobilinogen Ql (U) Normal mg/dl Normal [facility] Basophil percentageOrdered B y: Sanjana Hale on 05-28-2023 Basophil percentage 0 SEEN /hpf 0-5 [facility] Bilirubin Test strip Ql (U)O rdered By: Sanjana Hale on 05-28-2023 Bilirubin Ql (U) Negative Negative [facility] Culture, urineOrdered By: Evelyn Hale on 05-28-2023 Bacteria identified Cx Nom (U) Culture exhibits no growth. [facility] Ketones Test strip Ql (U)Ord ered By: Sanjana Hale on 05-28-2023 Ketones Ql (U) Negative Negative [facility] Mucus LM Ql (Urine sed)Order ed By: Sanjana Hale on 05-28-2023 Mucus Ql (Urine sed) 0 SEEN /hpf [facility] Nitrite Test strip Ql (U)Ord ered By: Sanjana Hale on 05-28-2023 Nitrite Ql (U) Negative Negative [facility] No Panel InformationOrdered By: Sanjana Hale on 05-28-2023 Urine RBC 0 SEEN /hpf 0-5 [facility] Protein Test strip Ql (U)Ord ered By: Sanjana Hale on 05-28-2023 Protein Ql (U) 15 mg/dl Negative [facility] Squamous epithelial cells de tection in urine sediment by light microscopyOrdered By: Sanjana Hale on 05-28-2023 Epithelial cells.squamous LM Ql (Urine sed) 0-5 SEEN /hpf 0-5 [facility] Urine blood detectionOrdered By: Sanjana Hale on 05-28-2023 RBC Ql (U) Negative Negative [facility] Urine clarityOrdered By: Kaylin Hale on 05-28-2023 Clarity (U) Clear Clear [facility] Urine color determinationOrd ered By: Sanjana Hale on 05-28-2023 Color (U) Yellow Yellow [facility] Urine glucose detectionOrder ed By: Sanjana Hale on 05-28-2023 Glucose Ql (U) Normal mg/dl Normal [facility] Urine leukocyte esterase det ection by dipstickOrdered By: Sanjana Hale on 05-28-2023 Leukocyte esterase Test strip Ql (U) Negative Negative [facility] Urine pHOrdered By: Sanjana oates on 05-28-2023 pH (U) 6.0 [pH] 5.0 - 8.0 [facility] Urine sediment bacteria coun t by microscopy (number/high power field)Ordered By: Sanjana Hale on 05-28-2023 Bacteria LM.HPF (Urine sed) [#/Area] 0 /[HPF] None Seen [facility] Urine specific gravity measu rementOrdered By: Sanjana Hale on 05-28-2023 Specific gravity (U) [Rel density] 1.015 1.002-1.030 [facility] Urine urobilinogen measureme ntOrdered By: Sanjana Hale on 05-28-2023 Urobilinogen Ql (U) Normal mg/dl Normal [facility] Basophil percentageOrdered B y: Yolanda Vivar on 05-09-2023 Basophil percentage 0-5 SEEN /hpf 0-5 [facility] Bilirubin Test strip Ql (U)O rdered By: Yolanda Vivar on 05-09-2023 Bilirubin Ql (U) Negative Negative [facility] Culture, urineOrdered By: Miki Vivar on 05-09-2023 Bacteria identified Cx Nom (U) Fannyhessea vaginae [facility] Ketones Test strip Ql (U)Ord ered By: Yolanda Vivar on 05-09-2023 Ketones Ql (U) Negative Negative [facility] Mucus LM Ql (Urine sed)Order ed By: Yolanda Vivar on 05-09-2023 Mucus Ql (Urine sed) 0 SEEN /hpf [facility] Nitrite Test strip Ql (U)Ord ered By: Yolanda Vivar on 05-09-2023 Nitrite Ql (U) Negative Negative [facility] No Panel InformationOrdered By: Yolanda Vivar on 05-09-2023 Urine RBC 0 SEEN /hpf 0-5 [facility] Protein Test strip Ql (U)Ord ered By: Yolanda Vivar on 05-09-2023 Protein Ql (U) Negative Negative [facility] Squamous epithelial cells de tection in urine sediment by light microscopyOrdered By: Yolanda Vivar on 05-09-2023 Epithelial cells.squamous LM Ql (Urine sed) 0-5 SEEN /hpf 0-5 [facility] Urine blood detectionOrdered By: Yolanda Vivar on 05-09-2023 RBC Ql (U) 10 /ul Negative [facility] Urine clarityOrdered By: Lincoln Vivar on 05-09-2023 Clarity (U) Clear Clear [facility] Urine color determinationOrd ered By: Yolanda Vivar on 05-09-2023 Color (U) Yellow Yellow [facility] Urine glucose detectionOrder ed By: Yolanda Vivar on 05-09-2023 Glucose Ql (U) Normal mg/dl Normal [facility] Urine leukocyte esterase det ection by dipstickOrdered By: Yolanda Vivar on 05-09-2023 Leukocyte esterase Test strip Ql (U) 25 /ul Negative [facility] Urine pHOrdered By: Yolanda Vivar on 05-09-2023 pH (U) 6.5 [pH] 5.0 - 8.0 [facility] Urine sediment bacteria coun t by microscopy (number/high power field)Ordered By: Yolanda Vivar on 05-09-2023 Bacteria LM.HPF (Urine sed) [#/Area] RARE /hpf None Seen [facility] Urine specific gravity measu rementOrdered By: Yolanda Vivar on 05-09-2023 Specific gravity (U) [Rel density] 1.015 1.002-1.030 [facility] Urine urobilinogen measureme ntOrdered By: Yolanda Vivar on 05-09-2023 Urobilinogen Ql (U) Normal mg/dl Normal [facility] 36on 04-30-2023 36 Multiple no shows an d cancellations. Needs seen in office for refills. Isa Normal [facility] Basophil percentageOrdered B y: Sanjana Hale on 03-21-2023 Bilirubin [Mass/Vol] 0.40 mg/dL 0.20-1.00 [facility] Comment on above: For patients on eltr ombopag therapy, use of Dim[place] TBIL is not recommended. Protein [Mass/Vol] 8.0 g/dL 6.4-8.2 [facility] Cholesterol [Mass/Vol] 153 mg/dL <200 [facility] Comment on above: <200 mg/dL Desirable 200-240 mg/dL Borderline >240 mg/dL High Risk Triglyceride [Mass/Vol] 141 mg/dL <199 [facility] Comment on above: The drugs N-Acetylcy steine and Metamizole may falsely depress this assay.Serum Triglycerides Reference Interval Normal <150 mg/dL Borderline high 150 - 199 mg/dL High 200 - 499 mg/dL Very High > or = 500 mg/dL Direct bilirubinOrdered By: Sanjana Hale on 03-21-2023 Bilirubin.direct [Mass/Vol] 0.09 mg/dL 0.00-0.30 [facility] High density lipoprotein (HD L) measurementOrdered By: Sanjana Hale on 03-21-2023 Cholesterol in HDL (Body fld) [Mass/Vol] 37 mg/dL >40 [facility] Comment on above: The drugs N-Acetylcy steine and Metamizole may falsely depress this assay. Reference Range HDL <40 mg/dL Low HDL Cholesterol HDL >or= 60 mg/dL High HDL Cholesterol Laboratory - Chemistry and C hemistry - challengeOrdered By: Sanjana Hale on 03-21-2023 ALP [Catalytic activity/Vol] 57 U/L 45-117 [facility] ALT [Catalytic activity/Vol] 23 U/L 16-61 [facility] Globulin (S) [Mass/Vol] 3.7 g/dL 2.2-4.2 [facility] Low density lipoprotein (LDL ) cholesterol measurementOrdered By: Sanjana Hale on 03-21-2023 Cholesterol in LDL (Body fld) [Moles/Vol] 88 mg/dL 0-130 [facility] Screening prostate specific antigen (PSA) measurementOrdered By: Sanjana Hale on 03-21-2023 Prostate specific Ag IA [Mass/Vol] 0.34 ng/mL 0.00-4.00 [facility] Comment on above: This test was perfor med using the TPSA assay method for the[facility]. Values obtained with differentassay methods cannot be used interchangably.When changing PSA assays in the course of monitoring apatient, additional sequential testing should be carriedout to confirm baseline values. Thin prep Papanicolaou smear with manual screeningOrdered By: Sanjana Hale on 03-21-2023 Thin prep Papanicolaou smear with manual screening 4.3 g/dL 3.2-5.0 [facility] Thin prep Papanicolaou smear with manual screening 21 U/L 15-37 [facility] Very low density lipoprotein (VLDL) cholesterol measurementOrdered By: Sanjana Hale on 03-21-2023 Cholesterol in VLDL Calc [Moles/Vol] 28 mg/dL 5-40 [facility] Whole blood hemoglobin A1c/t otal hemoglobin ratio (mass fraction)Ordered By: Sanjana Gillvaibhav on 03-21-2023 HbA1c (Bld) [Mass fraction] 5.3 % 3.8-5.6 [facility] Comment on above: Normal < 5.7 % Predi abetic 5.7 - 6.4 % Diabetic >or= 6.5 % Please note range changes. Absolute lymphocyte countOrd ered By: Ryan Ceja on 02-13-2023 Lymphocytes Auto (Unsp spec) [#/Vol] 0.89 10*3/uL 0.83-4.51 [facility] Basophil percentageOrdered B y: Ryan Ceja on 02-13-2023 Basophils/100 WBC (Bld) 0.3 % 0-1 [facility] Eosinophils/100 WBC (Bld) 0.8 % 0-5 [facility] Neutrophils (Bld) [#/Vol] 5.5 10*3/uL 2.0-7.7 [facility] Neutrophils/100 WBC (Bld) 77.5 % 47-70 [facility] WBC (Bld) [#/Vol] 7.1 10*3/uL 4.4-11.0 [facility] Blood erythrocytes count (nu mber/volume)Ordered By: Ryan Ceja on 02-13-2023 RBC (Bld) [#/Vol] 4.10 10*6/uL 4.6-6.2 [facility] Blood hemoglobin measurement (mass/volume)Ordered By: Ryan Ceja on 02-13-2023 Hemoglobin (Bld) [Mass/Vol] 12.3 g/dL 13.0-16.5 [facility] Blood lymphocytes/100 leukoc ytesOrdered By: Ryan Ceja on 02-13-2023 Lymphocytes/100 WBC (Bld) 12.6 % 19-41 [facility] Blood monocytes/100 leukocyt esOrdered By: Ryan Ceja on 02-13-2023 Monocytes/100 WBC (Bld) 8.5 % 0-10 [facility] Blood platelet mean volumeOr dered By: Ryan Ceja on 02-13-2023 Platelet mean volume (Bld) [Entitic vol] 9.6 fL 6.2-12.0 [facility] Determination of erythrocyte mean corpuscular volume (MCV)Ordered By: Ryan Ceja on 02-13-2023 MCV (RBC) [Entitic vol] 92.7 fL 80-94 [facility] Hematocrit Auto (Bld) [Volum e fraction]Ordered By: Ryan Ceja on 02-13-2023 Hematocrit (Bld) [Volume fraction] 38.0 % 40-54 [facility] Laboratory - CoagulationOrde red By: Ryan Ceja on 02-13-2023 aPTT Coag (Bld) [Time] 47.0 s 24.1-36.2 [facility] Laboratory - Hematology and Cell countsOrdered By: Ryan Ceja on 02-13-2023 Erythrocyte distribution width (RBC) [Entitic vol] 45.6 fL 35.1-43.9 [facility] Erythrocyte distribution width (RBC) [Ratio] 13.4 % 11.6-14.6 [facility] Immature granulocytes/100 WBC (Bld) 0.300 % 0.0-0.9 [facility] Comment on above: IG% - Immature Granu locytes (promyelocytes, myelocytes and metamyelocytes) > 1% indicates that a LEFT SHIFT is Present. MCH (RBC) [Entitic mass] 30.0 pg 27.0-32.0 [facility] Nucleated RBC/100 WBC (Bld) [Ratio] 0 % 0-5 [facility] MCHC Auto (RBC) [Mass/Vol]Or dered By: Ryan Ceja on 02-13-2023 MCHC (RBC) [Mass/Vol] 32.4 g/dL 32-36 [facility] Platelets bldOrdered By: Suzette Ceja on 02-13-2023 Platelets (Bld) [#/Vol] 202 10*3/uL 150-450 [facility] Basophil percentageOrdered B y: Ryan Ceja on 02-12-2023 Chloride [Moles/Vol] 113 mmol/L 98-107 [facility] Glucose [Mass/Vol] 95 mg/dL 74-106 [facility] Potassium [Moles/Vol] 4.4 mmol/L 3.5-5.1 [facility] Sodium [Moles/Vol] 141 mmol/L 136-145 [facility] Laboratory - Chemistry and C hemistry - challengeOrdered By: Ryan Ceja on 02-12-2023 CO2 [Moles/Vol] 26.0 mmol/L 21.0-32.0 [facility] Urea nitrogen/Creatinine [Mass ratio] 14.7 mg/mg 10-20 [facility] No Panel InformationOrdered By: Ryan Ceja on 02-12-2023 Activated Clotting Time 212 sec 74-137 [facility] Estimated Creatinine Clearance Calc 82.74 ml/min [facility] Estimated GFR (MDRD) Amer 88 mL/min >60 [facility] Comment on above: GFR Calc Estimated GFR (MDRD) Non-Af Amer 73 mL/min >60 [facility] Comment on above: Non- GFR Calc Serum or plasma calcium jamila urement (mass/volume)Ordered By: Ryan Ceja on 02-12-2023 Calcium [Mass/Vol] 9.9 mg/dL 8.5-10.1 [facility] Serum or plasma creatinine m easurement (mass/volume)Ordered By: Ryan Ceja on 02-12-2023 Creatinine [Mass/Vol] 1.09 mg/dL 0.70-1.30 [facility] Comment on above: The validity of the calculated GFR & GFRAA in patients over 70 years has not been determined. Clinical correlation is essential. Serum or plasma urea nitroge n measurement (mass/volume)Ordered By: Ryan Ceja on 02-12-2023 Urea nitrogen [Mass/Vol] 16 mg/dL 7-18 [facility] Thin prep Papanicolaou smear with manual screeningOrdered By: Ryan Ceja on 02-12-2023 Thin prep Papanicolaou smear with manual screening 2 5-15 [facility] Basophil percentageOrdered B y: Ryan Ceja on 02-07-2023 Basophil percentage < 1.0 mg/dL 0.70-1.30 [facility] No Panel InformationOrdered By: Fabio Day on 02-07-2023 Thyroid Stimulating Hormone (TSH) 1.36 uIU/mL 0.358-3.74 [facility] No Panel InformationOrdered By: Ryan Ceja on 02-07-2023 Bedside Estimated GFR (eGFR) > 60.0000 mL/min >[address] 01-29-2023 Medication name: tamsulosin (Flomax) Medication dosage: 0.4 mg (Miligrams Monthly quantity needed: 30 How many day supply requestin days Medication route: oral (PO) Medication administration time(s): daily If taking medication PRN, reason for taking medication: N/A If this is a controlled substance do you receive this or any other controlled medication from any other doctor or facility: No Ordering provider: Date of last office visit: 12/21/22 Date of next office visit: 04/12/23 Date of last refill: (see medication tab): 10/16/22 Updated/Validated preferred pharmacy: Yes Patient instructed to contact the pharmacy prior to picking up the medication: No [address] 01-25-2023 90 day supply for cabergoiline sent [place] [address] Name of caller: Flower crowe Contact phone number: [phone] Relationship to Patient: patient Provider: Dr Ruiz Practice: Endo Chief Complaint/Reason for Call: Pt states that Dr Mendoza was aware that the pt was on vacation and that Dr Mendoza wanted to know immediately when the pt came back in town so that a prescription of a 90 day supply of cabergoline (Dostinex) 0.5 MG tablet [[id number]] would be call in to the [facility] pharmacy on file. Pt states is all out of the medication. Please advise Best time of day caller can be reached: Any Patient advised that office/PCP has 24-48 business hours to return their call: Yes [address] 01-09-2023 36 Pa approved [address] 01-08-2023 36 Submitted PA for testosterone pump 2 pumps daily for 150g for a 30 day supply. Waiting on determination from [facility]. [address] 01-04-2023 Was informed by pharmacy that prescription for androgel needs prior auth , can you please help with this ? Thanks [place] [address] Patient was here in the clinic to discuss about his labs Labs show slightly elevated prolactin -probable he may have missed a few doses of cabergoline. Hence no change has been made to the dose. Advised to continue current dose of cabergoline consistently and have labs checked in 3 months Otherwise results of thyroid functions are normal Renal functions and liver functions are normal He continues to have mild hypercalcemia with high normal PTH. Advised to have bone density and 24-hour urine testing for calcium levels checked Testosterone level continues to be low with low normal LH and FSH PSA is normal Discussed about different formulations of testosterone We will start AndroGel 1.62% (20.25 Mg) 2 pumps once a day Advised to have testosterone and hemoglobin checked in 3 months Component Latest Ref Rng & Units 01/03/2023 TESTOSTERONE 72 - 623 ng/dL 103 Normal [facility] 36 It looks like you sent the cabergoline in on 01/02/23, but does he take testosterone? I do not see it. Normal [facility] 36 Name of caller: Flower crowe Contact phone number: [phone] Relationship to Patient: patient Provider: Joseph Practice: [facility] Chief Complaint/Reason for Call: Pt is asking to speak to the office about his testosterone and dostinex scripts. He says they both need filled today at the local pharmacy. Pt is also asking about the recent lab results. Best time of day caller can be reached: PM Patient advised that office/PCP has 24-48 business hours to return their call: Yes Normal [facility] 25-hydroxyvitamin D3 [Mass/V ol]on 01-03-2023 Interpretation and review of laboratory results Normal [facility] Therapy is based on measurement of Total 25-OHD with the following classification levels: Less than 20 ng/mL: Indicative of Vit D deficiency 20-30 ng/mL: Suggests Vit D insufficiency Optimal: Greater than or equal to 30 ng/mL Test performed by [employer] Competitive Immunoassay, measuring Total Vitamin D, not individual fractions. [facility] COMPREHENSIVE METABOLIC PANE Sumeet 01-03-2023 Albumin [Mass/Vol] 4.7 g/dL Normal 3.5-5.0 [facility] Comment on above: Performed By: #### L [id number] #### Steam Train Driver: LENORE ESCOBAR ([id number]) [facility] ([facility]) [address] [place] [address] ALP [Catalytic activity/Vol] 46 U/L Normal 38-126 [facility] Comment on above: Performed By: #### L [id number] #### Steam Train Driver: LENORE ESCOBAR ([id number]) [facility] [address] [place] [address] ALT [Catalytic activity/Vol] 17 U/L Normal 0-49 [facility] Comment on above: Performed By: #### L [id number] #### Steam Train Driver: LENORE ESCOBAR ([id number]) [facility] ([facility] [address] [place] [address] Anion gap [Moles/Vol] 11 mmol/L Normal 3-13 [facility] Comment on above: Performed By: #### L [id number] #### Steam Train Driver: LENORE ESCOBAR ([id number]) [facility] ([facility]) [address] [place] [address] AST [Catalytic activity/Vol] 23 U/L Normal 15-46 [facility] Comment on above: Performed By: #### L [id number] #### Steam Train Driver: LENORE ESCOBAR ([id number]) [facility] ([facility]) [address] [place] [address] Bilirubin [Mass/Vol] 0.5 mg/dL Normal 0.2-1.3 [facility] Comment on above: Performed By: #### L [id number] #### Steam Train Driver: LENORE ESCOBAR ([id number]) [facility] ([facility]) [address] [place] [address] Calcium [Mass/Vol] 10.5 mg/dL High 8.4-10.4 [facility] Comment on above: Performed By: #### L [id number] #### Steam Train Driver: LENORE ESCOBAR ([id number]) [facility] ([facility]) [address] [place] [address] [place] Chloride [Moles/Vol] 109 mmol/L High 98-107 [facility] Comment on above: Performed By: #### L [id number] #### Steam Train Driver: LENORE ESCOBAR ([id number]) [facility] ([facility] [address] [place] [address] [place] CO2 [Moles/Vol] 20 mmol/L Low 22-30 [facility] Comment on above: Performed By: #### L [id number] #### Steam Train Driver: LENORE ESCOBAR ([id number]) [facility]) [address] [place] [address] Creatinine [Mass/Vol] 1.20 mg/dL Normal 0.66-1.25 [facility] Comment on above: Performed By: #### L [id number] #### Steam Train Driver: LENORE ESCOBAR ([id number]) [facility] ([facility]) [address] [place] [address] [place] GLOMERULAR FILTRATION RATE ML/MIN/1.73 SQ M.PREDICTED 68.8 mL/min/1.73m*2 Normal >60.0 [facility] Comment on above: Result Comment: Calc ulation based on the Chronic Kidney Disease Epidemiology Collaboration (CKD-EPI) equation refit without adjustment for race Performed By: #### L [id number] #### Steam Train Driver: LENORE ESCOBAR ([id number]) [facility] ([facility]) [address] [place] [address] [place] Glucose [Mass/Vol] 113 mg/dL High 70-100 [facility] Comment on above: Performed By: #### L [id number] #### Steam Train Driver: LENORE ESCOBAR ([id number]) [facility] ([facility]) [address] [place] [address] Potassium [Moles/Vol] 4.5 mmol/L Normal 3.5-5.1 [facility] Comment on above: Performed By: #### L [id number] #### Steam Train Driver: LENORE ESCOBAR ([id number]) [facility] [address] [place] [address] [place] Protein [Mass/Vol] 7.9 g/dL Normal 6.3-8.2 [facility] Comment on above: Performed By: #### L [id number] #### Steam Train Driver: LENORE ESCOBAR ([id number]) [facility] ([facility]) [address] [place] [address] [place] Sodium [Moles/Vol] 140 mmol/L Normal 135-145 [facility] Comment on above: Performed By: #### L [id number] #### Steam Train Driver: LENORE ESCOBAR ([id number]) [facility] ([facility]) [address] [place] [address] Urea nitrogen [Mass/Vol] 20 mg/dL Normal 9-20 [facility] Comment on above: Performed By: #### L [id number] #### Steam Train Driver: LENORE ESCOBAR ([id number]) [facility] ([facility]) [address] [place] [address] Comprehensive metabolic 1998 panelon 01-03-2023 Albumin [Mass/Vol] 4.7 g/dL 3.5 - 5.0 g/dL [facility] ALP [Catalytic activity/Vol] 46 U/L 38 - 126 U/L [facility] ALT [Catalytic activity/Vol] 17 U/L 0 - 49 U/L [facility] Anion gap [Moles/Vol] 11 mmol/L 3 - 13 mmol/L [facility] AST [Catalytic activity/Vol] 23 U/L 15 - 46 U/L [facility] Bilirubin [Mass/Vol] 0.5 mg/dL 0.2 - 1 .3 mg/dL [facility] Calcium [Mass/Vol] 10.5 mg/dL High 8.4 - 10. 4 mg/dL [facility] Chloride [Moles/Vol] 109 mmol/L High 98 - 10 7 mmol/L [facility] CO2 [Moles/Vol] 20 mmol/L Low 22 - 30 mmol/L [facility] Creatinine [Mass/Vol] 1.20 mg/dL 0.66 - 1.25 mg/dL [facility] GFR/1.73 sq M.predicted MDRD (S/P/Bld) [Vol rate/Area] 68.8 mL/min/{1.73_m2} - PINF [facility] Comment on above: Calculation based on the Chronic Kidney Disease Epidemiology Collaboration (CKD-EPI) equation refit without adjustment for race Glucose [Mass/Vol] 113 mg/dL High 70 - 100 mg/dL [facility] Interpretation and review of laboratory results Abnormal [facility] Potassium [Moles/Vol] 4.5 mmol/L 3.5 - 5.1 mmol/L [facility] Protein [Mass/Vol] 7.9 g/dL 6.3 - 8.2 g/dL [facility] Sodium [Moles/Vol] 140 mmol/L 135 - 145 mmol/L [facility] Urea nitrogen [Mass/Vol] 20 mg/dL 9 - 20 mg/dL [facility] FOLLICLE STIMULATING HORMONE on 01-03-2023 FOLLICLE STIM HORMONE 7.3 mIU/mL Normal [facility] Comment on above: Result Comment: JULISSA Issa COMMENTS: Females: Follicular Phase ...... 2.0-11.6 Mid-cycle Peak ........ 5.1-23.4 Luteal Phase .......... 1.4-9.6 Post-menopausal ....... 21.5-131.0 Males: 1.6-9.7 Performed By: #### L [id number] #### Steam Train Driver: LENORE ESCOBAR ([id number]) [facility] ([facility]) [address] [place] [address] FREE T4on 01-03-2023 Free T4 [Mass/Vol] 0.87 ng/dL Normal 0.78-2.19 [facility] Comment on above: Performed By: #### L [id number] #### Steam Train Driver: LENORE ESCOBAR ([id number]) [facility] ([facility]) [address] [place] [address] Follicle stimulating hormone on 01-03-2023 Follitropin Qn 7.3 m[IU]/mL mIU/mL [facility] Females: Follicular Phase ...... 2.0-11.6 Mid-cycle Peak ........ 5.1-23.4 Luteal Phase .......... 1.4-9.6 Post-menopausal ....... 21.5-131.0 Males: 1.6-9.7 [facility] Free T4 [Mass/Vol]on 023 Free T4 Dialysis [Mass/Vol] 0.87 ng/dL 0.78 - 2.19 ng/dL [facility] Interpretation and review of laboratory results Normal [facility] HEMOGLOBIN AND HEMATOCRIT, B LOODon 01-03-2023 Hematocrit (Bld) [Volume fraction] 42.3 % Normal 40.0-52.0 [facility] Comment on above: Performed By: #### L [id number] #### Steam Train Driver: LENORE ESCOBAR ([id number]) [facility]) [address] [place] [address] Hemoglobin (Bld) [Mass/Vol] 14.4 g/dL Normal 13.0-18.0 [facility] Comment on above: Performed By: #### L [id number] #### Steam Train Driver: LENORE ESCOBAR ([id number]) [facility] ([facility]) [address] [place] [address] Hemoglobin (Bld) [Mass/Vol]o n 01-03-2023 Hematocrit (Bld) [Volume fraction] 42.3 % 40.0 - 52.0 % [facility] Interpretation and review of laboratory results Normal [facility] Hemoglobin and hematocrit, b loodon 01-03-2023 Hemoglobin (Bld) [Mass/Vol] 14.4 g/dL 13.0 - 18.0 g/dL [facility] LUTEINIZING HORMONEon 2022 LUTEINIZING HORMONE 4.8 mIU/mL Normal [facility] Comment on above: Result Comment: Fema les: Follicular Phase ...... 1.9-26.2 Mid-Cycle Peak ........ 22.8-76.1 Luteal Phase .......... 0.6-16.6 Post-menopausal ....... 8.6-61.8 (Not on MHT) Males: 1.2-10.6 Performed By: #### L [id number] #### Steam Train Driver: LENORE ESCOBAR ([id number]) [facility] ([facility]) [address] [place] [address] Luteinizing hormoneon 2022 Lutropin Qn 4.8 m[IU]/mL mIU/mL [facility] Comment on above: Females: Follicular Phase ...... 1.9-26.2 Mid-Cycle Peak ........ 22.8-76.1 Luteal Phase .......... 0.6-16.6 Post-menopausal ....... 8.6-61.8 (Not on MHT) Males: 1.2-10.6 No Panel Informationon 01-03 [facility] [place] PROLACTINon 01-03-2023 PROLACTIN 29.4 ng/mL High 4.0-18.0 [facility] Comment on above: Result Comment: JULISSA Issa COMMENTS: Values below 35 ng/mL may be of doubtful significance. Recommend send-out testing to rule out macroprolactin to confirm the result. Performed By: #### L [id number] #### Steam Train Driver: LENORE ESCOBAR ([id number]) [facility] ([facility]) [address] [place] [address] PSA TOTAL (SCREENING)on PROSTATE SPECIFIC AG SCREEN 0.2 ng/mL Normal <4.0 [facility] Comment on above: Result Comment: JULISSA Issa COMMENTS: Testing performed on the [employer] using the chemiluminescent microparticle immunoassay method. Results obtained by different methods should not be used interchangeably. PSA result is based on a new assay run on a new instrument and the results may not be comparable with assays run prior to 11/13/2022. Performed By: #### L [id number] #### Steam Train Driver: LENORE ESCOBAR ([id number]) [facility] ([facility]) [address] [place] [address] PSA Total (Screening)on Interpretation and review of laboratory results Normal [facility] Prostate specific Ag [Mass/Vol] 0.2 ng/mL NINF - 4.0 ng/mL [facility] Testing performed on the [employer] using the chemiluminescent microparticle immunoassay method. Results obtained by different methods should not be used interchangeably. PSA result is based on a new assay run on a new instrument and the results may not be comparable with assays run prior to 11/13/2022. [facility] [place] PTH INTACTon 01-03-2023 PTH, INTACT 51.7 pg/mL Normal 7.5-53.5 [facility] Comment on above: Performed By: #### L [id number] #### Steam Train Driver: LENORE ESCOBAR ([id number]) [facility] ([facility]) [address] [place] [address] PTH, intacton 01-03-2023 Parathyrin.intact [Mass/Vol] 51.7 pg/mL 7.5 - 53.5 pg/mL [facility] Parathyrin.intact [Mass/Vol] on 01-03-2023 Interpretation and review of laboratory results Normal [facility] Prolactinon 01-03-2023 Interpretation and review of laboratory results Abnormal [facility] Prolactin [Mass/Vol] 29.4 ng/mL High 4.0 - 1 8.0 ng/mL [facility] Values below 35 ng/m L may be of doubtful significance. Recommend send-out testing to rule out macroprolactin to confirm the result. [facility] TESTOSTERONEon 01-03-2023 Testosterone [Mass/Vol] 103 ng/dL Normal 72-623 [facility] Comment on above: Performed By: #### L [id number] #### Steam Train Driver: LENORE ESCOBAR ([id number]) [facility] ([facility]) [address] [place] [address] THYROID STIMULATING HORMONEo n 01-03-2023 THYROID STIMULATING HORMONE 2.568 uIU/mL Normal 0.465-4.680 [facility] Comment on above: Performed By: #### L [id number] #### Steam Train Driver: LENORE ESCOBAR ([id number]) [facility] ([facility]) [address] [place] [address] TSHon 01-03-2023 TSH Qn 2.568 m[IU]/L [facility] h TSH Qnon 01-03-2023 Interpretation and review of laboratory results Normal [facility] Testosteroneon 01-03-2023 Interpretation and review of laboratory results Normal [facility] Testosterone [Mass/Vol] 103 ng/dL 72 - 623 ng/dL [facility] VITAMIN D DEFICIENCY SCREENI NG (VIT D 25)on 01-03-2023 VIT D 25-OH, TOTAL 33 ng/mL Normal 30-100 [facility] Comment on above: Result Comment: ORDE R COMMENTS: Therapy is based on measurement of Total 25-OHD with the following classification levels: Less than 20 ng/mL: Indicative of Vit D deficiency 20-30 ng/mL: Suggests Vit D insufficiency Optimal: Greater than or equal to 30 ng/mL Test performed by [employer] Competitive Immunoassay, measuring Total Vitamin D, not individual fractions. Performed By: #### L [id number] #### Steam Train Driver: LENORE ESCOBAR ([id number]) [facility] ([facility]) [address] [place] [address] Vitamin D Deficiency Screeni ng (Vit D 25)on 01-03-2023 25-hydroxyvitamin D3 [Mass/Vol] 33 ng/mL 30 - 100 ng/mL [facility] 36on 01-02-2023 36 called and spoke wit h pharmacist, insurance will not cover a 90-day supply right now but will cover a 30-day supply. Prescription for 30 days sent to the pharmacy, informed patient. Normal [facility] 36 Pt called and states that pharmacy refuses to refill the cabergoline Script that you sent in today. States that they can not refill until 01/24/23 and he will be without medication for 2 weeks by that point and will also be out of town on that date. Pt requesting a call back TEVIN. Normal [facility] Office Visiton 01-02-2023 Follow-up visit [id number] Flower Queen 1960 M Date Provider Department Center 01/02/2023 [id number] [facility] None Family History Adopted: Yes Problem Relation Age of Onset No Known Problems Father Cancer Mother Comments: lung Family Status - Relation Status Age at Father Mother Level of Service:41862 IN OFFICE/OUTPATIENT ESTABLISHED MOD MDM 30-39 MIN Reason for Visit and Comments: Follow-up [345385] Hypothyroidism [143] pituitary macroprolactinoma [Other] Follow-up visit [id number] EvangelistEdisreji Montano 1960 M Date Provider Department Center 01/02/2023 [id number] VÁZQUEZ [facility] None Family History Adopted: Yes Problem Relation Age of Onset No Known Problems Father Cancer Mother Comments: lung Family Status - Relation Status Age at Father Mother Level of Service:25202 IN OFFICE/OUTPATIENT ESTABLISHED LOW MDM 20-29 MIN Reason for Visit and Comments: Post-op [483] - 1st po L iliofemoral DVT thrombectomy 12/21/22 Normal [facility] Progress Noteon 01-02-2023 Progress Note [facility] [address] [facility] [address] Dept: [phone] Dept Loc: [phone] Visit type: Established Reason for Visit: Follow-up, Hypothyroidism, and pituitary macroprolactinoma Assessment and Plan 1. Macroprolactinoma (HCC) - Prolactin - cabergoline (Dostinex) 0.5 MG tablet; take 1 1/2 tablet by mouth ON SATURDAY AND SATURDAY, Normal 2. Pituitary adenoma (HCC) - Luteinizing hormone - Follicle stimulating hormone - Testosterone - Hemoglobin and hematocrit, blood - PSA Total (Screening) - TSH - T4, free 3. 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 Hypercalcemia - PTH, intact - Calcium, ionized - Vitamin D Deficiency Screening (Vit D 25) - Comprehensive metabolic panel 1. Pituitary macroadenoma-prolacti noma - Overall pituitary tumor had decreased in size since 2013 and remained stable ib most recent MRI in 2021 - current regimen: cabergoline 1.5 tabs 2 days a week -last prolactin level in September 2021 was normal -Continue current dose of cabergoline - recheck prolactin - advised to complete formal Visual field examination - Clinically no Compressive symptoms - Further management will be based on the above labs - Patient endorses the symptoms of erectile dysfunction. He has had low testosterone in the past but has never been on treatment for the same. Check testosterone along with LH, FSH, PSA, hemoglobin and hematocrit 2. Stanley's hypothyroidism - Positive TPO antibodies 06/2012, 99.8 - Current regimen: Levothyroxine 100 mcg daily -Check thyroid functions 3.Hypercalcemia - Patient has had mild intermittent hypercalcemia since at least 2018, PTH levels checked have been normal between 27-32 In the past hypercalcemia was attributed to lab assay, increase dietary intake of calcium - Work-up done in the past showed normal SPEP and 24 hour urine calcium spillage - Most recent bone density is normal as well - check BMP, PTH, vitamin D I reviewed: laboratory results reviewed: Yes radiographic reports reviewed: Yes I reviewed the radiographic images personally at the time of today's visit: Yes Pt was advised of the results. Records from outside facility/PCP office to be requested: No Scripts sent to pharmacy of pt choice: Yes Follow up in about 6 months (around 07/03/2023). Subjective HPI PCP is Cheryl Basilio MD Referring is PCP Previous New Patient Escort: Dr Sal & Dr Benito Initial [facility] endocrinology office visit: 2013 Last office visit: August 2021 1.Prolactinoma - Pituitary Macroadenoma: This was diagnosed in 10/2012 when he had presented with headaches , double vision to [facility] and pituitary MRI had shown a 3 cm macroadenoma. Overall pituitary testing in the past had normal IGF-I, normal cortisol and ACTH. Testosterone was low but since patient was asymptomatic , this was not treated /rechecked Most recent pituitary imaging showed an enhancing sellar mass unchanged in size compared to 2019 measuring 1.7 x 2.2 x 1.7 cm with possible extension into right cavernous sinus, no significant suprasellar extension. Optic chiasm is unremarkable He has been on cabergoline since 2013 - current regimen: cabergoline 1.5 tabs 2 days a week Headaches: No - headaches have resolved after starting cabergoline Changes in vision: No Loss of vision: No Problems in blind spots: No Excessive/Constant clear rhinorrhea: No No galactorrhea Problems w/ libido: No Hormone Eval Completed: Yes Patient mentions that formal ophthalmologic evaluation was a few years ago. He is supposed to have followed up with service order expediter Dr. Monge , but has missed his follow-up. No history of pituitary surgeries No history of radiation therapy to the brain No previous malignancy No history of chemotherapy No previous head trauma No history of steroid, narcotic use Primary hypothyroidism: Positive TPO antibodies 06/2012, 99.8 Current regimen: Levothyroxine 100 mcg daily Interval history: Patient has had to take Cialis as needed for the last few years He has had erectile dysfunction over the last few years Libido is normal He has never used testosterone in the past He does not have history of prostate cancer He is adopted and does not know his family history He is a current smoker and is in the process of quitting Review of Systems Constitutional: Positive for fatigue. Negative for unexpected weight change. Gastrointestinal: Negative for constipation and diarrhea. Endocrine: Negative for cold intolerance and heat intolerance. An entire ROS was performed at the time of this encounter. Unless noted above in the HPI, the ROS is negative. Allergies Allergen Reactions Meperidine Nausea And Vomiting Demerol Outpatient Medications Prior to Visit Medication Sig Dispense Refill fenofibrate (Triglide) 160 (more content not included)... Progress Note 01/02/2023 Jaylen Queen 1960 Chief Complaint Patient presents with Post-op 1st po L iliofemoral DVT thrombectomy 12/21/22 Patient returns for post operative evaluation status post attempted thrombectomy of a chronic left iliofemoral DVT which was not successful. The wire would not pass to the vena cava.. Nothing is changed however he is upset that the leg still aches and is swollen and wants to know if there is any other option elsewhere. Past Surgical History: Procedure Laterality Date CHOLECYSTECTOMY open COLONOSCOPY KNEE SURGERY Right SMALL INTESTINE SURGERY for diverticulitis THROMBECTOMY Left 12/21/2022 Ileofemoral DVT thrombectomy ([place]) TONSILLECTOMY (HISTORICAL) Physical Exam: The puncture site is healing without evidence of infection. Mild left foot edema. No ulcerations. Intact gait Assessment: Post-operative left leg venogram. Problem List Items Addressed This Visit Circulatory Chronic deep vein thrombosis (DVT) of iliofemoral vein (HCC) - Primary I reviewed with the patient that normal activities can be resumed as tolerated. Plan: continue xarelto. Encouraged compression stockings - start with a lower strength and work his way up. We discussed that he can consider a jugular approach, but this is by no means a guarantee Follow up for any concerns. . Progress Noteon 12-31-2022 Progress Note Chart reviewed of ED follow up Seen in [facility] ED on 12/25/2022 Reason: Bleeding post-op Discharge instructions: Please return to the Emergency Department immediately for new or worsening symptoms or any new concerns, this includes pain, swelling, recurrent bleeding, fever chills, lightheadedness or dizziness, numbness or weakness. Please follow-up with your vascular surgeon in the next 2-3 days for further postop management. Per chart review patient has a appointment with Dr. Davonte SANDERSON Vascular surgery. Seen in [facility] on 12/22/22 for Flank pain was seen she has been in contact with her PCP. On 12/25/22 she was admitted for Sebaceous cyst of left eyelid. 36on 12-26-2022 36 Left detailed VM per patient request to inform. 36 Pt just had surgery yesterday--planned OV 01/02 Would advise patient wait until evaluated at post op appointment 36 Patient had L leg venogram 12/25/22 and would like to discuss a prescription for compression stockings. He has worn OTC compression stockings in the past. He is still experiencing lower extremity edema, but he feels it has decreased since the procedure and would like to discuss possibility of prescription hose moving forward. Last OV 12/10/22 for chronic DVT of iliofemoral vein. Next OV 01/02/[address] Arauz. [id number] 12-25-2022 [id number] Patient upset wantin g to leave,eye drops called to his pharmacy, patient transported out via w/c with the daughter [phone] Patient post bedrest is complains of left eye pain and light sensitivity, upon attempting to open the eye, Dr Cornelius contacted and re recommends eye oint for 2 days and follow up with eye MD if no better in 2 days , Resident Pacheco Santiago notified they will place new orders. [id number] Discharge instructions reviewed with the patient and the daughter, patient to follow up with after discharge, no further questions , patient instructed on surgical site care. [id number] Family notified of arrival to [facility] 36on 12-25-2022 36 Mychart message sent [facility] ED Nursing Noteon 12-25-2022 ED Nursing Note Bleeding subsided. P t given dc instructions and follow up care. Pt verbalizes understanding. Pt amb indep to dc area, home w family ED Nursing Note Patient ambulatory t o room 4 presenting status post-op with drainage from site. Patient had an attempted thrombectomy of the left lower leg today with entry behind the left knee; he presents with shadowing on his jeans, and saturated dressing post-op. Surgery was around noon, he was discharged from the hospital around 5pm, and when he got home at 6pm he felt blood draining down his leg. Vital signs are stable in triage. Physician bedside and post-op dressing removed, dressing is saturated, but is not actively bleeding; physician and RN applied pressure dressing to site including gauze and gene wrap. He reports that he takes xarelto, but stopped yesterday and did not take it today preparing for surgery. Call light in reach. ED Provider Noteon ED Provider Note Emergency Department Encounter [facility] ED Patient: Jaylen Queen : 1960 Date of Evaluation: 12/25/2022 ED Provider: Pacheco Ortiz MD Note: I wore an N95 mask and gloves during this encounter. CHIEF COMPLAINT: post op bleeding Chief Complaint Patient presents with Post-op Problem Surgery today for clot removal in left lower leg, presenting status post-op saturated tegaderm and gauze behind the left knee, blood draining down leg upon arrival HPI: Jaylen Queen is a 62 y.o. male with PMH per EMR including chronic lower extremity DVT, presents with concern for postop bleeding. Patient reports earlier today he had procedure for clot removal of DVT, reports this evening he had bleeding from operative site in the left posterior knee, he reports small area of saturation of his jeans in the area of incision site, denies significant blood loss, denies left leg pain, numbness or weakness, fever chills, chest pain, shortness of breath, lightheadedness or dizziness, abdominal pain, or other symptoms or concerns. REVIEW OF SYSTEMS: Pertinent positives and negatives as per HPI. HISTORIES: PAST MEDICAL HISTORY: as per HPI SOCIAL HISTORY: Per EMR history of tobacco use, alcohol use, marijuana use MEDICATIONS: Nursing notes and EMR reviewed ALLERGIES: Nursing notes and EMR reviewed PHYSICAL EXAM: Vital signs: reviewed General: no apparent discomfort, well appearing Eyes: no conjunctival injection, eyes tracking HEENT: airway patent, mucous membranes moist Cardiovascular: regular rhythm, normal rate, left DP pulse palpable, left leg warm and well-perfused Respiratory: non-labored breathing, breath sounds clear, no wheezing crackles or rhonchi Gastrointestinal: soft, non-distended, non-tender throughout Extremities: Mildly edematous left lower extremity, no erythema or warmth, pressure dressing in place over the knee and popliteal fossa, no active bleeding Integumentary: warm, dry Neurologic: alert, no obvious neurologic deficits, wiggles left toes, sensation intact left foot MEDICAL DECISION MAKING: Medications erythromycin (Romycin) 5 MG/GM ophthalmic ointment (has no administration in time range) Jaylen Queen is a 62 y.o. male who presents as above, per EMR op note today Dr. Arauz underwent procedure for chronic deep vein thrombosis clot removal, accessed in the left popliteal fossa, presents with concern for postoperative bleeding, he arrives afebrile hypertensive otherwise reassuring vitals, neurovascular intact, pressure dressing placed upon arrival, he denies symptoms to suggest symptomatic anemia, denies other symptoms or concerns. Discussed with patient obtaining laboratory evaluation to assess hemoglobin, patient elects to decline laboratory evaluation. Note: Patient reports he was supposed to be prescribed erythromycin ointment at time of discharge today however prescription was not received at his pharmacy, confirmed per EMR nurse navigator note [id number] today, confirmed, will prescribe erythromycin eye ointment at patient's request. Patient reevaluated at 1 hour length of stay, postoperative wound with hemostasis, no palpable hematoma, nonpressure dressing placed, further management discussed, patient and agree with plan for discharge, recommend close follow-up with established vascular surgeon for further postop care, return precautions provided, prescription erythromycin provided as above, patient in agreement with plan, stable for discharge. DIAGNOSIS: bleeding (postoperative wound) DISPOSITION: Discharge PRESCRIPTIONS: New Prescriptions ERYTHROMYCIN (ROMYCIN) 5 MG/GM OPHTHALMIC OINTMENT Apply 1 Application to affected eye(s) in the morning and 1 Application at noon and 1 Application in the evening and 1 Application before bedtime. Do all this for [address] a 1/2 inch ribbon of ointment into the lower eyelid. Comment: Please note this report has been produced using speech recognition software and may contain errors related to that system including errors in grammar, punctuation, and spelling, as well as words and phrases that may be inappropriate. If there are any questions or concerns please feel free to contact the dictating provider for clarification. Pacheco Ortiz MD [facility], MD 12/25/222016 [place] GUIDANCE OR USE ONLY - NO N RESULTABLEon 12-25-2022 There is no interpretation needed for this exam. IMAGING Nursing Noteon 12-25-2022 Nursing Note Daughter called to the room Nursing Note Family member jeannette Mendiola daughter regarding current status and bedrest Op Noteon 12-25-2022 Op Note Date: 12/25/2022 Location: [facility] OR Name: Jaylen Dusty Queen, : 1960, Diagnosis Pre-op Diagnosis * 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) [I82.529] Post-op Diagnosis * 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) [I82.529] Procedures LEFT LEG VENOGRAM 09212 - IN PRQ TRANSLUMINAL MECHANICAL THROMBECTOMY VEIN TRANSCATHETER PLACEMENT OF AN INTRAVASCULAR STENT(S), OPEN OR PERCUTANEOUS INITIAL VEIN 81911 - IN OPEN/PERQ PLACEMENT INTRAVASCULAR STENT SAME 1ST Surgeons * Jacob Arauz - Primary Procedure Summary Anesthesia: General ASA: III Estimated Blood Loss: Minimal Drains: * None in log * Staff: In Store Marketing Associate: Elsi Mitchell RN Relief In Store Marketing Associate: Carla Hayden RN Relief Scrub: Alis Smith RN Scrub Person: Yolanda Meyers Findings: see full op note Complications: None; patient tolerated the procedure well. Specimens Collected: Order Name Source Comment Collection Info Order Time POTASSIUM WITH MG REFLEX For patients on dialysis to draw potassium day of surgery 12/25/2022 8:25 AM PROTHROMBIN TIME If patient on coumadin within 4 days prior. 12/25/2022 8:25 AM Wound Class: Class I: Clean Blood Products: None Prophylactic Antibiotics: Pre-operative antibiotics were not given because antibiotics are not indicated for this procedure. 36on 12-24-2022 36 Urinalysis and urine culture still show no signs of infection. Thanks 36 Name of caller: Flower Queen Contact phone number: [phone] Relationship to Patient: patient Provider: Dr. Basilio Practice: [facility] Chief Complaint/Reason for Call: Please call the pt tevin Pt stated he had urine and blood work done on 12.21.2022, pt stated this was STAT and he would like the results today since he is having surgery tomorrow 12.25.2022. Please advise. Thank you. Best time of day caller can be reached: Any Patient advised that office/PCP has 24-48 business hours to return their call: Yes Normal [facility] 36 Name of caller: Flower Queen Contact phone number: [phone] Relationship to Patient: patient Provider: Dr. Basilio Practice: [facility] Chief Complaint/Reason for Call: Pt stated he had urine and blood work done on 12.21.2022, pt stated this was STAT and he would like the results today since he is having surgery tomorrow 12.25.2022. Please advise. Thank you. Best time of day caller can be reached: Any Patient advised that office/PCP has 24-48 business hours to return their call: Yes 36on 12-22-2022 36 S: Patient spoke [facility] nurse regarding flank pain B: Onset of symptoms/concern 5-6 days A: Pt has stage 2 chronic kidney disease. Having a lot of kidney pain. Right side just below rib cage. Has been having the problem off and on for the past year. Been hospitalized 3 times before. Currently rates the pain 7/10 and constant. The pain is starting to travel around to the front. States bladder does not empty completely. Had kidney stone once years ago. Was seen at beginning of the week in [place]. Urine was negative at that time. Was seen yesterday by Dr Basilio. Urine sent but will not have results until Saturday. Feels like hit by ball bat. Experiencing tinge with urination, constant right flank pain, cloudy urine, and night sweats. Denies fever, chest pain, sob, blood in urine, or n/v. States usually needs IV antibiotic because the infection is usually e.coli and oral does not clear the infection up. Supposed to have surgery on Saturday for blood clot removal in left leg and does not want to have to cancel it. Asking what he can do over the weekend since the symptoms are getting worse. R: Pt advised to be seen in the ER Keep pushing fluids - water and cranberry juice. Patient verbalizes understanding. States will go to [place] ED because has not had luck at [place]. Instructed to call back with any further questions or concerns. Reason for Disposition [1] Abdominal pain AND [2] age > 60 years Protocols used: Flank [id number] Normal [facility] BASIC METABOLIC PANELon 10-2 Anion gap [Moles/Vol] 10 mmol/L Normal 3-13 [facility] Comment on above: Performed By: #### L [id number] #### Steam Train Driver: LENORE ESCOBAR ([id number]) [facility] ([facility]) [address] [place] [address] Calcium [Mass/Vol] 10.5 mg/dL High 8.4-10.4 [facility] Comment on above: Performed By: #### L [id number] #### Steam Train Driver: LENORE ESCOBAR ([id number]) [facility] ([facility] [address] [place] [address] Chloride [Moles/Vol] 109 mmol/L High 98-107 [facility] Comment on above: Performed By: #### L [id number] #### Steam Train Driver: LENORE ESCOBAR ([id number]) [facility] ([facility]) [address] [place] [address] CO2 [Moles/Vol] 22 mmol/L Normal 22-30 [facility] Comment on above: Performed By: #### L [id number] #### Steam Train Driver: LENORE ESCOBAR ([id number]) [facility] ([facility]) [address] [place] [address] Creatinine [Mass/Vol] 1.18 mg/dL Normal 0.66-1.25 [facility] Comment on above: Performed By: #### L [id number] #### Steam Train Driver: LENORE ESCOBAR ([id number]) [facility] ([facility]) [address] [place] [address] GLOMERULAR FILTRATION RATE ML/MIN/1.73 SQ M.PREDICTED 70.2 mL/min/1.73m*2 Normal >60.0 [facility] Comment on above: Result Comment: Calc ulation based on the Chronic Kidney Disease Epidemiology Collaboration (CKD-EPI) equation refit without adjustment for race Performed By: #### L [id number] #### Steam Train Driver: LENORE ESCOBAR ([id number]) [facility] ([facility]) [address] [place] [address] Glucose [Mass/Vol] 104 mg/dL High 70-100 [facility] Comment on above: Performed By: #### L [id number] #### Steam Train Driver: LENORE ESCOBAR ([id number]) [facility] ([facility]) [address] [place] [address] Potassium [Moles/Vol] 4.1 mmol/L Normal 3.5-5.1 [facility] Comment on above: Performed By: #### L [id number] #### Steam Train Driver: LENORE ESCOBAR ([id number]) [facility] ([facility]) [address] [place] [address] Sodium [Moles/Vol] 142 mmol/L Normal 135-145 [facility] Comment on above: Performed By: #### L [id number] #### Steam Train Driver: LENORE ESCOBAR ([id number]) [facility] ([facility]) [address] [place] [address] Urea nitrogen [Mass/Vol] 18 mg/dL Normal 9-20 [facility] Comment on above: Performed By: #### L [id number] #### Steam Train Driver: LENORE ESCOBAR ([id number]) [facility] ([facility]) [address] [place] [address] Basic metabolic 1998 panelon 12-22-2022 Anion gap [Moles/Vol] 10 mmol/L 3 - 13 mmol/L [facility] Calcium [Mass/Vol] 10.5 mg/dL High 8.4 - 10. 4 mg/dL [facility] Chloride [Moles/Vol] 109 mmol/L High 98 - 10 7 mmol/L [facility] CO2 [Moles/Vol] 22 mmol/L 22 - 30 mmol/L [facility] Creatinine [Mass/Vol] 1.18 mg/dL 0.66 - 1.25 mg/dL [facility] GFR/1.73 sq M.predicted MDRD (S/P/Bld) [Vol rate/Area] 70.2 mL/min/{1.73_m2} - PINF [facility] Comment on above: Calculation based on the Chronic Kidney Disease Epidemiology Collaboration (CKD-EPI) equation refit without adjustment for race Glucose [Mass/Vol] 104 mg/dL High 70 - 100 mg/dL [facility] Interpretation and review of laboratory results Abnormal [facility] Potassium [Moles/Vol] 4.1 mmol/L 3.5 - 5.1 mmol/L [facility] Sodium [Moles/Vol] 142 mmol/L 135 - 145 mmol/L [facility] Urea nitrogen [Mass/Vol] 18 mg/dL 9 - 20 mg/dL [facility] CBC W Auto Differential pane l (Bld)Ordered By: Akila Denson on 12-22-2022 Basophils (Bld) [#/Vol] 0.0 10*3/uL 0.0 - 0.2 10*3/uL [facility] Basophils/100 WBC (Bld) 0.7 % 0.0 - 2.0 % [facility] Eosinophils (Bld) [#/Vol] 0.2 10*3/uL 0. 0 - 0.5 10*3/uL [facility] Eosinophils/100 WBC (Bld) 3.4 % 1.0 - 6.0 % [facility] Erythrocyte distribution width (RBC) [Ratio] 14.0 % 11.5 - 14.5 % [facility] Hematocrit (Bld) [Volume fraction] 41.6 % 40.0 - 52.0 % [facility] Hemoglobin (Bld) [Mass/Vol] 14.1 g/dL 13.0 - 18.0 g/dL [facility] Immature granulocytes (Bld) [#/Vol] 0.0 10*3/uL NINF - 0.0 10*3/uL [facility] Immature granulocytes/100 WBC (Bld) 0.2 % High NINF - 0.0 % [facility] Interpretation and review of laboratory results Abnormal [facility] Lymphocytes (Bld) [#/Vol] 1.7 10*3/uL 1. 0 - 4.3 10*3/uL [facility] Lymphocytes/100 WBC (Bld) 30.9 % 20 .0 - 40.0 % [facility] MCH (RBC) [Entitic mass] 31.2 pg 26. 0 - 34.0 pg [facility] MCHC (RBC) [Mass/Vol] 33.9 % 32.0 - 36.0 % [facility] MCV (RBC) [Entitic vol] 92.0 fL 80.0 - 98.0 fL [facility] Monocytes (Bld) [#/Vol] 0.5 10*3/uL 0.0 - 0.8 10*3/uL [facility] Monocytes/100 WBC (Bld) 8.8 % 2.0 - 10.0 % [facility] Neutrophils (Bld) [#/Vol] 3.0 10*3/uL 1. 8 - 7.0 10*3/uL [facility] Neutrophils/100 WBC (Bld) 56.0 % 40 .0 - 80.0 % [facility] Platelet mean volume (Bld) [Entitic vol] 9.1 fL 7.4 - 12.4 fL [facility] Comment on above: MPV is a calculated measurement using platelet volume ratio Platelets (Bld) [#/Vol] 243 10*3/uL 140 - 440 10*3/uL [facility] RBC (Bld) [#/Vol] 4.52 10*6/uL 4.40 - 5.9 0 10*6/uL [facility] WBC (Bld) [#/Vol] 5.4 10*3/uL 3.6 - 10.7 10*3/uL [facility] CBC WITH AUTO DIFFERENTIALon 12-22-2022 Basophils (Bld) [#/Vol] 0.0 10*3/uL Normal 0.0-0.2 [facility] Comment on above: Performed By: #### L [id number] #### Steam Train Driver: LENORE ESCOBAR ([id number]) [facility] ([facility]) [address] [place] [address] Basophils/100 WBC (Bld) 0.7 % Normal 0.0-2.0 [facility] Comment on above: Performed By: #### L [id number] #### Steam Train Driver: LENORE ESCOBRA ([id number]) [facility] ([facility]) [address] [place] [address] Eosinophils (Bld) [#/Vol] 0.2 10*3/uL Normal 0.0-0.5 [facility] Comment on above: Performed By: #### L [id number] #### Steam Train Driver: LENORE ESCOBAR ([id number]) [facility] ([facility]) [address] [place] [address] Eosinophils/100 WBC (Bld) 3.4 % Normal 1.0-6.0 [facility] Comment on above: Performed By: #### L [id number] #### Steam Train Driver: LENORE ESCOBAR ([id number]) [facility] ([facility]) [address] [place] [address] Erythrocyte distribution width (RBC) [Ratio] 14.0 % Normal 11.5-14.5 [facility] Comment on above: Performed By: #### L [id number] #### Steam Train Driver: LENORE ESCOBAR ([id number]) [facility] ([facility]) [address] [place] [address] ERYTHROCYTE MEAN CORPUSCULAR HEMOGLOBIN CONCENTRATION (G/DL) BY AUTOMATED 33.9 % Normal 32.0-36.0 [facility] Comment on above: Performed By: #### L [id number] #### Steam Train Driver: LENORE ESCOBAR ([id number]) [facility] ([facility]) [address] [place] [address] Hematocrit (Bld) [Volume fraction] 41.6 % Normal 40.0-52.0 [facility] Comment on above: Performed By: #### L [id number] #### Steam Train Driver: LENORE ESCOBAR ([id number]) [facility] ([facility]) [address] [place] [address] Hemoglobin (Bld) [Mass/Vol] 14.1 g/dL Normal 13.0-18.0 [facility] Comment on above: Performed By: #### L [id number] #### Steam Train Driver: LENORE ESCOBAR ([id number]) [facility] ([facility]) [address] [place] [address] IMMATURE GRANS (10*3/UL) IN BLOOD BY AUTOMATED COUNT 0.0 10*3/uL Normal <=0.0 [facility] Comment on above: Performed By: #### L [id number] #### Steam Train Driver: LENORE ESCOBAR ([id number]) [facility] ([facility]) [address] [place] [address] IMMATURE GRANS/100 LEUKOCYTES IN BLOOD BY AUTOMATED COUNT 0.2 % High <=0.0 [facility] Comment on above: Performed By: #### L [id number] #### Steam Train Driver: LENORE ESCOBAR ([id number]) [facility] ([facility]) [address] [place] [address] Lymphocytes (Bld) [#/Vol] 1.7 10*3/uL Normal 1.0-4.3 [facility] Comment on above: Performed By: #### L [id number] #### Steam Train Driver: LENORE ESCOBAR ([id number]) [facility] BLOOD [employer] [facility] ([facility]) [address] [place] [address] Lymphocytes/100 WBC (Bld) 30.9 % Normal 20.0-40.0 [facility] Comment on above: Performed By: #### L [id number] #### Steam Train Driver: LENORE ESCOBAR ([id number]) [facility] ([facility]) [address] [place] [address] MCH (RBC) [Entitic mass] 31.2 pg Normal 26.0-34.0 [facility] Comment on above: Performed By: #### L [id number] #### Steam Train Driver: LENORE ESCOBAR ([id number]) [facility] ([facility]) [address] [place] [address] MCV (RBC) [Entitic vol] 92.0 fL Normal 80.0-98.0 [facility] Comment on above: Performed By: #### L [id number] #### Steam Train Driver: LENORE ESCOBAR ([id number]) [facility] ([facility]) [address] [place] [address] Monocytes (Bld) [#/Vol] 0.5 10*3/uL Normal 0.0-0.8 [facility] Comment on above: Performed By: #### L [id number] #### Steam Train Driver: LENORE ESCOBAR ([id number]) [facility] ([facility]) [address] [place] [address] Monocytes/100 WBC (Bld) 8.8 % Normal 2.0-10.0 [facility] Comment on above: Performed By: #### L [id number] #### Steam Train Driver: LENORE ESCOBAR ([id number]) [facility] ([facility]) [address] [place] [address] Neutrophils (Bld) [#/Vol] 3.0 10*3/uL Normal 1.8-7.0 [facility] Comment on above: Performed By: #### L [id number] #### Steam Train Driver: LENORE ESCOBAR ([id number]) [facility] ([facility]) [address] [place] [address] Neutrophils/100 WBC (Bld) 56.0 % Normal 40.0-80.0 [facility] Comment on above: Performed By: #### L [id number] #### Steam Train Driver: LENORE ESCOBAR ([id number]) [facility] ([facility]) [address] [place] [address] Platelet mean volume (Bld) [Entitic vol] 9.1 fL Normal 7.4-12.4 [facility] Comment on above: Result Comment: MPV is a calculated measurement using platelet volume ratio Performed By: #### L [id number] #### Steam Train Driver: LENORE ESCOBAR ([id number]) [facility] ([facility]) [address] [place] [address] PLATELETS (10*3/UL) IN BLOOD AUTOMATED COUNT 243 10*3/uL Normal 140-440 [facility] Comment on above: Performed By: #### L [id number] #### Steam Train Driver: LENORE ESCOBAR ([id number]) [facility] ([facility]) [address] [place] [address] RBC (Bld) [#/Vol] 4.52 10*6/uL Normal 4.40-5.90 [facility] Comment on above: Performed By: #### L [id number] #### Steam Train Driver: LENORE ESCOBAR ([id number]) [facility] ([facility]) [address] [place] [address] WBC (Bld) [#/Vol] 5.4 10*3/uL Normal 3.6-10.7 [facility] Comment on above: Performed By: #### L [id number] #### Steam Train Driver: LENORE ESCOBAR ([id number]) [facility] ([facility]) [address] [place] [address] COMPLETE URINALYSISon 2022 BILIRUBIN, TOTAL PRESENCE IN URINE Negative Normal Negative [facility] Comment on above: Performed By: #### L [id number] #### Steam Train Driver: LENORE ESCOBAR ([id number]) [facility] ([facility]) [address] [place] [address] Clarity (U) Clear Normal Clear [facility] Comment on above: Performed By: #### L [id number] #### Steam Train Driver: LENORE ESCOBAR ([id number]) [facility] ([facility]) [address] [place] [address] Color (U) Light Yellow Normal Lt. Yellow [facility] Comment on above: Performed By: #### L [id number] #### Steam Train Driver: LENORE ESCOBAR ([id number]) [facility] ([facility]) [address] [place] [address] GLUCOSE (MG/DL) IN URINE Normal Normal Nor mal (<70) [facility] Comment on above: Performed By: #### L [id number] #### Steam Train Driver: LENORE ESCOBAR ([id number]) [facility] ([facility]) [address] [place] [address] HEMOGLOBIN PRESENCE IN URINE Negative Normal Negative [facility] Comment on above: Performed By: #### L [id number] #### Steam Train Driver: LENORE ESCOBAR ([id number]) [facility] ([facility]) [address] [place] [address] Ketones Ql (U) Negative Normal Negative [facility] Comment on above: Performed By: #### L [id number] #### Steam Train Driver: LENORE ESCOBAR ([id number]) [facility] ([facility]) [address] [place] [address] LEUKOCYTE ESTERASE PRESENCE IN URINE BY TEST STRIP Negative Normal Negative [facility] Comment on above: Performed By: #### L [id number] #### Steam Train Driver: LENORE ESCOBAR ([id number]) [facility] ([facility]) [address] [place] [address] NITRITE PRESENCE IN URINE Negative Normal Negative [facility] Comment on above: Performed By: #### L [id number] #### Steam Train Driver: LENORE ESCOBAR ([id number]) [facility] ([facility]) [address] [place] [address] pH (U) 5.5 [pH] Normal 5.0-8.0 [facility] Comment on above: Performed By: #### L [id number] #### Steam Train Driver: LENORE ESCOBAR ([id number]) [facility] ([facility]) [address] [place] [address] Protein (U) [Mass/Vol] Negative Normal Negative [facility] Comment on above: Performed By: #### L [id number] #### Steam Train Driver: LENORE ESCOBAR ([id number]) [facility] ([facility]) [address] [place] [address] Specific gravity (U) [Rel density] 1.016 Normal 1.005-1.030 [facility] Comment on above: Performed By: #### L [id number] #### Steam Train Driver: LENORE ESCOBAR ([id number]) [facility] ([facility]) [address] [place] [address] UROBILINOGEN (MG/DL) IN URINE Normal Normal Normal (0-1) [facility] Comment on above: Performed By: #### L [id number] #### Steam Train Driver: LENORE ESCOBAR ([id number]) [facility] ([facility]) [address] [place] [address] ED Nursing Noteon 12-22-2022 ED Nursing Note Informed Dr. Rodas s the pt was prescribed Cipro yesterday by Dr. Basilio. Pt had not previously mentioned this to ED providers. Dr. Negron at bedside again speaking with pt. Estefany Dunlap, RN 12/22/22 7088 ED Nursing Note Pt ambulatory to ED3 with daughter with c/o dysuria, flank pain since Saturday or . Pt has hx of numerous visits for flank pain, states he has had flank pain intermittently for at least a year. States that he retains urine which causes UTI's. He has had 2 doctor appts already this week for same c/o. He states he saw Dr. Perales (per [facility] he went to the office and had a negative UA 12/18 but no record of an actual visit with Dr. Perales) and pt seems upset it was not sent for culture. Per [facility] the pt placed calls to the office/[facility] stating he needed IV abx specifically but was advised this is not indicated for negative UA. He then saw Dr. Basilio in [place] yesterday and had another UA as well as outpatient US and Xray. UA yesterday was again negative but was sent for culture. Outpatient imaging was all negative as well. Pt was prescribed Cipro in spite of negative results. Pt states his c/o are falling on deaf ears. He reports having chills and sweats this morning. He states he called the [facility] today and was told by the nurse to come to the ED to get a CT scan. Pt is concerned that he is having DVT surgery Saturday and that if he has an infection it will cause issues with his procedure. Pt is A&Ox3, respirations even and unlabored, skin warm and dry, no s/s of distress noted. Pt negative/irritable during triage. ED Provider Noteon ED Provider Note EMERGENCY DEPARTMENT ENCOUNTER Pt Name: Jaylen Queen Birthdate 1960 Date of evaluation: 12/22/2022 ED Provider: Pacheco Negron MD CHIEF COMPLAINT Chief Complaint Patient presents with Difficulty Urinating Flank Pain History from patient and daughter HISTORY OF PRESENT ILLNESS (Location/Symptom, Timing/Onset, Context/Setting, Quality, Duration, Modifying Factors, Severity) Note limiting factors. I wore appropriate PPE for the entirety of this encounter. HPI Jaylen Queen is a 62 y.o. who presents to the emergency department complaining of right flank pain. Began 5 days ago. Dull mild aching pain. Saw his PCP and had negative urinalysis in the office. Saw PCP yesterday and had ultrasound KUB urinalysis and culture. Urinalysis negative culture pending KUB and ultrasound unremarkable per the medical center. Patient is concerned that he has a history of similar symptoms that evolved into a urinary tract infection which failed outpatient treatment because he had resistant E. coli and required hospitalization twice in the past year. No fever or injury. Because his symptoms persisted despite 2 recent visits he called the nurse on-call who told him to come to the emergency department and have a CT scan today so he did. No fever. He did have chills this morning. Nursing Notes were reviewed. Limitations to history: None Outside historians: Family daughter REVIEW OF SYSTEMS Review of Systems Constitutional: Negative for fever. Eyes: Negative for visual disturbance. Respiratory: Negative for shortness of breath. Cardiovascular: Negative for chest pain. Gastrointestinal: Negative for abdominal pain and nausea. Genitourinary: Positive for dysuria and flank pain. Negative for decreased urine volume, difficulty urinating, enuresis, frequency, genital sores, hematuria, penile discharge, penile pain, penile swelling, scrotal swelling, testicular pain and urgency. Musculoskeletal: Negative for back pain and neck pain. Skin: Negative for rash. Neurological: Negative for headaches. Psychiatric/Behaviora l: Negative for self-injury. Pertinent positives and negatives as per HPI PAST MEDICAL HISTORY Past Medical History: Diagnosis Date Abscess of scrotum 09/15/2020 Last Assessment & Plan: Urology office was contacted and I spoke to the nurse practitioner Farzana and she was going to see if they could rearrange some schedules to get him in [place]. She was going to call and talk with Jaylen. Acute cystitis without hematuria 02/27/2022 Anxiety patrick with surgery Benign neoplasm of pituitary gland and craniopharyngeal duct (pouch) ([facility]) Chest pain, unspecified Chills 05/28/2022 Chronic flank pain Chronic pain Diverticulitis DVT (deep venous thrombosis) ([facility]) 2022 left leg Esophageal reflux Essential hypertension, benign Flank pain 11/27/2021 11/2021 ECG no significant change from prior 2012 (possible old infarct). NSR Troponin negative. Echocardiogram EF 69, no significant valvular disease. Recommend cardiology as outpatient for further workup- likely stress test. - patient declining. Last Assessment & Plan: A Hay fever Kidney stone Left leg swelling 11/2022 treated with antibiotics Other abnormal blood chemistry Other and unspecified hyperlipidemia Other anterior pituitary disorders (HCC) Other testicular hypofunction Pituitary tumor Pyelonephritis 12/03/2021 Last Assessment & Plan: Resolved. Tobacco use disorder Unspecified hearing loss Unspecified hypothyroidism UTI (urinary tract infection) SURGICAL HISTORY Past Surgical History: Procedure Laterality Date CHOLECYSTECTOMY open COLONOSCOPY KNEE SURGERY Right SMALL INTESTINE SURGERY for diverticulitis TONSILLECTOMY (HISTORICAL) CURRENT MEDICATIONS Previous Medications CABERGOLINE (DOSTINEX) 0.5 MG TABLET take 1 1/2 tablet by mouth ON SATURDAY AND SATURDAY CIPROFLOXACIN (CIPRO) 500 MG TABLET Take 1 tablet (500 mg) by mouth 2 times daily for 7 days. FENOFIBRATE (TRIGLIDE) 160 MG TABLET Take 1 tablet (160 mg) by mouth daily. FUROSEMIDE (LASIX) 40 MG TABLET Take 1 tablet (40 mg) by mouth daily for 5 days. LEVOTHYROXINE (SYNTHROID, LEVOXYL) 100 MCG TABLET Take 1 tablet (100 mcg) by mouth daily. NIACIN (NIASPAN) 1000 MG ER TABLET Take 1 tablet (1,000 mg) by mouth daily. RIVAROXABAN (XARELTO) 20 MG TABLET Take 1 tablet (20 mg) by mouth with evening meal. Take with food. ROSUVASTATIN (CRESTOR) 10 MG TABLET Take 1 tablet (10 mg) by mouth daily. TADALAFIL (CIALIS) 5 MG TABLET Take 1 tablet (5 mg) by mouth daily. TAMSULOSIN (FLOMAX) 0.4 MG 24 HR CAPSULE Take 1 capsule (0.4 mg) by mouth daily. ALLERGIES Meperidine (more content not included)... Normal [facility] LACTIC ACID WITH REFLEXon Lactate [Moles/Vol] 1.2 mmol/L Normal 0.7-2.[address] [facility] Comment on above: Performed By: #### L [id number] #### Steam Train Driver: LENORE ESCOBAR ([id number]) [facility] ([facility]) [address] [place] [address] Laboratory - Chemistry and C hemistry - challengeon 12-22-2022 Lactate [Moles/Vol] 1.2 mmol/L 0.7 - 2. 0 mmol/L [facility] No Panel Informationon 12-22 Interpretation and review of laboratory results Normal [facility] Urinalysis complete panel (U )on 12-22-2022 Bilirubin Ql (U) Negative Negative mg/dL [facility] Clarity (U) Clear Clear [facility] Color (U) Light Yellow Lt. Yellow [facility] Glucose Ql (U) Normal Normal (<70) mg/dL [facility] Hemoglobin Ql (U) Negative Negative mg/dL [facility] Interpretation and review of laboratory results Normal [facility] Ketones (U) [Mass/Vol] Negative Negat bharathi mg/dL [facility] Leukocyte esterase Test strip Ql (U) Negative Negative Irina/uL [facility] Nitrite Ql (U) Negative Negative [facility] pH (U) 5.5 [pH] 5.0 - 8.0 pH [facility] Protein (U) [Mass/Vol] Negative Negat bharathi mg/dL [facility] Specific gravity (U) [Rel density] 1.016 1.005 - 1.030 [facility] Urobilinogen (U) [Mass/Vol] Normal Normal (0-1) mg/dL [facility] 36on 12-21-2022 36 S: Patient spoke wit h [facility] nurse regarding kidney infection B: Onset of symptoms/concern few days A: Pt states he has been having issues with R kidney. Hx of E Coli because his bladder holds too much urine. Pt states that it is flaring up again on right side with pain. Woke up in a sweat this morning didn't check his temperature. Urine is cloudy, slight burning with urination. He states last one was September. Last time they gave him PO meds it didn't work only IV meds work so he wants to know what to do. He has a surgery on Karen to get out blood clots in his leg. I asked him if he thinks that only IV meds work what exactly can I ask Dr. Basilio if I called him. He states he's not sure he just doesn't want to miss his surgery next week and wants someone to tell him what to do. Denies CP, SOB, urinary frequency, urgency. R: Schedule pt for appointment at 11:20 he states he is on his way now since it is with Dr. Baislio. He said he'd rather see him first than go straight to the ER he just feels lost but doesn't want to end up feeling as crummy as he did the last time all of this happened and he doesn't want it to affect his surgery next week. Made him aware that he cannot be late. Patient understands care advice. No further needs at this time. Patient instructed to call back with new or worsening symptoms. Reason for Disposition MODERATE pain (e.g., interferes with normal activities or awakens from sleep) Protocols used: Flank [id number] Normal [facility] Office Visiton 12-21-2022 Follow-up visit [id number] Flower Queen 1960 M Date Provider Department Center 12/21/2022 [id number] BASILIO [facility] Family History Adopted: Yes Problem Relation Age of Onset No Known Problems Father Cancer Mother Comments: lung Family Status - Relation Status Age at Father Mother Level of Service:33229 IN OFFICE/OUTPATIENT ESTABLISHED LOW MDM 20-29 MIN Reason for Visit and Comments: OTHER [Other] - Pain right side back Normal [facility] Progress Noteon 12-21-2022 Progress Note [facility] [address] [facility] [address] [facility] [address] Dept: [phone] Dept Loc: [phone] Visit type: Established patient Reason for Visit: OTHER (Pain right side back) Assessment and Plan 1. Right flank pain - Urinalysis with reflex microscopic (clean catch) - Urine culture (clean catch) - XR abdomen 1 view - US retroperitoneum - ciprofloxacin (Cipro) 500 MG tablet; Take 1 tablet (500 mg) by mouth 2 times daily for 7 days., Starting Sat12/21/2022, Until Sat12/28/2022, Normal - Check urinalysis and urine culture and sent to lab instead of just POC - Will also order x-ray and retroperitoneal ultrasound to assess for possible stones - While waiting for results will cover for possible pyelonephritis with ciprofloxacin and make further plans pending results Follow up if symptoms worsen or fail to improve. Subjective HPI Jef presents today for evaluation of right flank pain. Reports symptoms of been present for about a week now. He presented to a different office and had POC urinalysis that was normal. No signs of infection. Reports he has had pain like this before with urinary tract infections as well as kidney stones. Reports he has had some night sweats, but denies any fevers. Has had some cloudy, concentrated urine but denies any dysuria, frequency, hematuria. Review of Systems Genitourinary: Positive for flank pain. Allergies Allergen Reactions Meperidine Nausea And Vomiting Demerol Outpatient Medications Prior to Visit Medication Sig Dispense Refill cabergoline (Dostinex) 0.5 MG tablet take 1 1/2 tablet by mouth ON SATURDAY AND SATURDAY 36 tablet 1 fenofibrate (Triglide) 160 MG tablet Take 1 tablet (160 mg) by mouth daily. 90 tablet 1 furosemide (Lasix) 40 MG tablet Take 1 tablet (40 mg) by mouth daily for 5 days. 5 tablet 0 levothyroxine (Synthroid, Levoxyl) 100 MCG tablet Take 1 tablet (100 mcg) by mouth daily. 90 tablet 1 niacin (Niaspan) 1000 MG ER tablet Take 1 tablet (1,000 mg) by mouth daily. 90 tablet 1 rivaroxaban (Xarelto) 20 MG tablet Take 1 tablet (20 mg) by mouth with evening meal. Take with food. 30 tablet 0 rosuvastatin (Crestor) 10 MG tablet Take 1 tablet (10 mg) by mouth daily. 90 tablet 1 tadalafil (Cialis) 5 MG tablet Take 1 tablet (5 mg) by mouth daily. 90 tablet 1 tamsulosin (Flomax) 0.4 MG 24 hr capsule Take 1 capsule (0.4 mg) by mouth daily. 30 capsule 2 No facility-administered medications prior to visit. Past Medical History: Diagnosis Date Abscess of scrotum 09/15/2020 Last Assessment & Plan: Urology office was contacted and I spoke to the nurse practitioner Farzana and she was going to see if they could rearrange some schedules to get him in [place]. She was going to call and talk with Jaylen. Acute cystitis without hematuria 02/27/2022 Anxiety patrick with surgery Benign neoplasm of pituitary gland and craniopharyngeal duct (pouch) (HCC) Chest pain, unspecified Chills 05/28/2022 Diverticulitis DVT (deep venous thrombosis) ([facility]) 2022 left leg Esophageal reflux Essential hypertension, benign Flank pain 11/27/2021 11/2021 ECG no significant change from prior 2012 (possible old infarct). NSR Troponin negative. Echocardiogram EF 69, no significant valvular disease. Recommend cardiology as outpatient for further workup- likely stress test. - patient declining. Last Assessment & Plan: A Hay fever Kidney stone Left leg swelling 11/2022 treated with antibiotics Other abnormal blood chemistry Other and unspecified hyperlipidemia Other anterior pituitary disorders (HCC) Other testicular hypofunction Pituitary tumor Pyelonephritis 12/03/2021 Last Assessment & Plan: Resolved. Tobacco use disorder Unspecified hearing loss Unspecified hypothyroidism Social History Tobacco Use Smoking status: Some Days Packs/day: 1.00 Years: 40.00 Additional pack years: 0.00 Total pack years: 40.00 Types: Cigarettes Last attempt to quit: 03/2022 Years since quittin.7 Smokeless tobacco: Never Substance Use Topics Alcohol use: Yes Alcohol/week: 1.0 standard drink of alcohol Types: 1 Cans of beer per week Comment: occassionally Past Surgical History: Procedure Laterality Date CHOLECYSTECTOMY open COLONOSCOPY KNEE SURGERY Right SMALL INTESTINE SURGERY for diverticulitis TONSILLECTOMY (HISTORICAL) Family History Adopted: Yes Problem Relation Name Age of Onset No Known Problems Father Cancer Mother lung Objective BP (!) 155/79 (BP Location: Left arm, Patient Position: Sitting, BP Cuff Size: Large adult) Pulse 68 Wt 241 lb (109 kg (more content not included)... Normal [facility] US RETROPERITONEALon 10-27-2 023 US RETROPERITONEAL Patient Name: JAYLEN QUEEN : 1960 Exam Date/Time: 12/21/2022 13:05 Procedure: US RETROPERITONEAL Ordering Provider: BASILIO MICHAEL Reason For Exam: R flank pain EXAMINATION: RENAL ULTRASOUND HISTORY: Right flank pain TECHNIQUE: Sonography of the kidneys and urinary bladder was performed. Images were obtained and stored in a permanent archive. COMPARISON: CT abdomen/pelvis 09/14/2022 RESULT: Right Kidney: -Renal length: 11.2 cm -Parenchyma: Normal parenchymal echogenicity. Normal parenchymal thickness. -Collecting system: No hydronephrosis. -Calculus: No echogenic, shadowing calculus. -Lesion: 1.7 cm parapelvic cyst. Left Kidney: -Renal length: 10.9 cm -Parenchyma: Normal parenchymal echogenicity. Normal parenchymal thickness. -Collecting system: No hydronephrosis. -Calculus: No echogenic, shadowing calculus. -Lesion: Anechoic cysts with posterior acoustic enhancement, largest measuring up to 2.4 cm in the upper pole. Bladder: Underdistended and suboptimally assessed. IMPRESSION: No hydronephrosis or echogenic shadowing renal calculi. Bilateral renal cysts including right parapelvic cyst and left simple cortical cysts. Report Dictated on Electronically Signed By: Jesús Danielson MD Electronically Signed Date/Time: 12/21/2022 1:07 PM EDT US Retroperitoneumon 023 No hydronephrosis or echogenic shadowing renal calculi. Bilateral renal cysts including right parapelvic cyst and left simple cortical cysts. Report Dictated on Electronically Signed By: Jesús Danielson MD Electronically Signed Date/Time: 12/21/2022 1:07 PM EDT [facility] 1960 [id number] Exam Date/Time: 12/21/2022 13:05 Procedure: US RETROPERITONEAL Ordering Provider: BASILIO MICHAEL Reason For Exam: R flank pain EXAMINATION: RENAL ULTRASOUND HISTORY: Right flank pain TECHNIQUE: Sonography of the kidneys and urinary bladder was performed. Images were obtained and stored in a permanent archive. COMPARISON: CT abdomen/pelvis 09/14/2022 RESULT: Right Kidney: -Renal length: 11.2 cm -Parenchyma: Normal parenchymal echogenicity. Normal parenchymal thickness. -Collecting system: No hydronephrosis. -Calculus: No echogenic, shadowing calculus. -Lesion: 1.7 cm parapelvic cyst. Left Kidney: -Renal length: 10.9 cm -Parenchyma: Normal parenchymal echogenicity. Normal parenchymal thickness. -Collecting system: No hydronephrosis. -Calculus: No echogenic, shadowing calculus. -Lesion: Anechoic cysts with posterior acoustic enhancement, largest measuring up to 2.4 cm in the upper pole. Bladder: Underdistended and suboptimally assessed. [facility] Jesús Danielson MD - 12/21/2022 Patient Name: JAYLEN QUEEN : 1960 [id number] Exam Date/Time: 12/21/2022 13:05 Procedure: US RETROPERITONEAL Ordering Provider: BASILIO MICHAEL Reason For Exam: R flank pain EXAMINATION: RENAL ULTRASOUND HISTORY: Right flank pain TECHNIQUE: Sonography of the kidneys and urinary bladder was performed. Images were obtained and stored in a permanent archive. COMPARISON: CT abdomen/pelvis 09/14/2022 RESULT: Right Kidney: -Renal length: 11.2 cm -Parenchyma: Normal parenchymal echogenicity. Normal parenchymal thickness. -Collecting system: No hydronephrosis. -Calculus: No echogenic, shadowing calculus. -Lesion: 1.7 cm parapelvic cyst. Left Kidney: -Renal length: 10.9 cm -Parenchyma: Normal parenchymal echogenicity. Normal parenchymal thickness. -Collecting system: No hydronephrosis. -Calculus: No echogenic, shadowing calculus. -Lesion: Anechoic cysts with posterior acoustic enhancement, largest measuring up to 2.4 cm in the upper pole. Bladder: Underdistended and suboptimally assessed. IMPRESSION: No hydronephrosis or echogenic shadowing renal calculi. Bilateral renal cysts including right parapelvic cyst and left simple cortical cysts. Report Dictated on Electronically Signed By: Jesús Danielson MD Electronically Signed Date/Time: 12/21/2022 1:07 PM EDT [facility] Study observation (narrative) Earnestine Almanzar alth US RetroperitoneumOrdered By : Jesús Danielson on 12-21-2022 [employer] Work Phone: XR Abdomen Single viewon Gas-filled nondilated loops of colon. Paucity of small bowel gas. Cholecystectomy clips. No radiopaque renal calculi. No visible free air though assessment is limited by supine technique and can be better assessed with upright or decubitus views. Degenerative changes of the lower lumbar spine. Left pelvic phlebolith. Report Dictated on Electronically Signed By: Jesús Danielson MD Electronically Signed Date/Time: 12/21/2022 1:08 PM EDT [facility] Patient Name: JAYLEN QUEEN : 1960 Exam Date/Time: 12/21/2022 12:51 Procedure: XR ABDOMEN 1 VIEW Ordering Provider: BASILIO MICHAEL Reason For Exam: R flank pain ABDOMEN, 1 VIEW. CLINICAL INFORMATION: Right flank pain TECHNIQUE: Supine abdomen, 2 image(s) COMPARISON: Concurrent ultrasound 12/21/2022, CT 09/14/2022 RESULT: See impression. [facility] Jesús Danielson MD - 12/21/2022 Patient Name: JAYLEN QUEEN : 1960 Exam Date/Time: 12/21/2022 12:51 Procedure: XR ABDOMEN 1 VIEW Ordering Provider: BASILIO MICHAEL Reason For Exam: R flank pain ABDOMEN, 1 VIEW. CLINICAL INFORMATION: Right flank pain TECHNIQUE: Supine abdomen, 2 image(s) COMPARISON: Concurrent ultrasound 12/21/2022, CT 09/14/2022 RESULT: See impression. IMPRESSION: Gas-filled nondilated loops of colon. Paucity of small bowel gas. Cholecystectomy clips. No radiopaque renal calculi. No visible free air though assessment is limited by supine technique and can be better assessed with upright or decubitus views. Degenerative changes of the lower lumbar spine. Left pelvic phlebolith. Report Dictated on Electronically Signed By: Jesús Danielson MD Electronically Signed Date/Time: 12/21/2022 1:08 PM EDT [facility] Radiology Study observation (narrative) [facility] XR Abdomen Single viewOrdere d By: Jesús Danielson on 12-21-2022 [facility] [place] Work Phone: 36on 12-18-2022 36 Foodat message sent [place] [id number] Please schedule visi t to discuss. Thanks 36on 12-17-2022 36 S: Patient spoke wit h [facility] nurse regarding right kidney pain B: Onset of symptoms/concern 4 days A: Patient states that he was in the office today, and did a via dipstick that was negative. Left flank pain is moderate to severe. Patient states feels like someone punched in the kidney. Patient denies nausea, vomiting, and blood in urine. Patient states that this is how he gets when he has a kideny infection and he has surgery next week on his leg R: Patient is requesting that he have IV antibiotics for the ecoli in his kidney because that is what he had last time. Explained to patient that is not typically done without a positive culture result. Please reach out to patient to advise Patient understands care advice. No further needs at this time. Patient instructed to call back with new or worsening symptoms. [place] [phone] . Reason for Disposition MODERATE pain (e.g., interferes with normal activities or awakens from sleep) Protocols used: Flank [id number] 36 Notified Jaylen. [facility] 36 Urine is completely clear, there is no blood or white blood cells in his urine I am not sure why he is having his pain. This does not look like any type of urinary tract infection. To see urology if he continues to have problems, I have nothing else to offer him at this time. 36 Pt reported that he was scheduled with urology last week but missed the appointment d/t needing to be seen for the blood clot. Advised him we need to get him in with urology tevin after his surgery. UA results on your desk and order pended. Normal [facility] 36 Patient stopped in and said he is having kidney issues, he said he has been on multiple antibiotics and nothing is working. He said he would need to be on an IV antibiotic, he was advised that we would not be able to do that here. He is having surgery next week for a blot clot and said he would need the issue he is having fixed before then. Normal [facility] Urinalysis macro (dipstick) panel (U)on 12-17-2022 Bilirubin, UA Negative [facility] Blood, UA Negative [facility] Glucose, UA Negative [facility] Interpretation and review of laboratory results Normal [facility] Ketones, UA Negative [facility] Leukocytes, UA Negative [facility] Nitrite, UA Negative [facility] pH, UA 6.0 [facility] Protein, UA Negative [facility] Spec Grav, UA 1.030 [facility]robilin[facility], [facility] ECG 12-LEADon 12-16-2022 ECG 12-LEAD IMPRESSION: Sinus bradycardia Inferior infarct, old Electronically Signed On 12-16-2022 14:01:05 EDT by Alyssa Ag 36on 12-14-[address] lung screen at this time due to having other health issues that he is dealing with right now. 12/14/22 [facility] BASIC METABOLIC PANELon 11-25 Anion gap [Moles/Vol] 9 mmol/L Normal 3-13 [facility] Comment on above: Performed By: #### L [id number] #### Steam Train Driver: LENORE ESCOBAR ([id number]) [facility] ([facility]) [address] [place] [address] Calcium [Mass/Vol] 11.2 mg/dL High 8.4-10.4 [facility] Comment on above: Performed By: #### L [id number] #### Steam Train Driver: LENORE ESCOBAR ([id number]) [facility] ([facility]) [address] [place] [address] Chloride [Moles/Vol] 105 mmol/L Normal 98-107 [facility] Comment on above: Performed By: #### L [id number] #### Steam Train Driver: LENORE ESCOBAR ([id number]) [facility] ([facility]) [address] [place] [address] CO2 [Moles/Vol] 25 mmol/L Normal 22-30 [facility] Comment on above: Performed By: #### L [id number] #### Steam Train Driver: LENORE ESCOBAR ([id number]) [facility] ([facility]) [address] [place] [address] Creatinine [Mass/Vol] 1.53 mg/dL High 0.66-1.25 [facility] Comment on above: Performed By: #### L [id number] #### Steam Train Driver: LENORE ESCOBAR ([id number]) [facility] ([facility]) [address] [place] [address] GLOMERULAR FILTRATION RATE ML/MIN/1.73 SQ M.PREDICTED 51.4 mL/min/1.73m*2 Low >60.0 [facility] Comment on above: Result Comment: Calc ulation based on the Chronic Kidney Disease Epidemiology Collaboration (CKD-EPI) equation refit without adjustment for race Performed By: #### L [id number] #### Steam Train Driver: LENORE ESCOBAR ([id number]) [facility]) [address] [place] [address] Glucose [Mass/Vol] 103 mg/dL High 70-100 [facility] Comment on above: Performed By: #### L [id number] #### Steam Train Driver: LENORE ESCOBAR ([id number]) [facility] ([facility]) [address] [place] [address] Potassium [Moles/Vol] 5.1 mmol/L Normal 3.5-5.1 [facility] Comment on above: Performed By: #### L [id number] #### Steam Train Driver: LENORE ESCOBAR ([id number]) [facility]) [address] [place] [address] Sodium [Moles/Vol] 139 mmol/L Normal 135-145 [facility] Comment on above: Performed By: #### L [id number] #### Steam Train Driver: LENORE ESCOBAR ([id number]) [facility] ([facility]) [address] [place] [address] Urea nitrogen [Mass/Vol] 20 mg/dL Normal 9-20 [facility] Comment on above: Performed By: #### L [id number] #### Steam Train Driver: LENORE ESCOBAR ([id number]) [facility] ([facility]) [address] [place] [address] BLOOD TYPE AND SCREEN GELon 12-13-2022 ABO GROUPING O Normal [facility] Comment on above: Performed By: #### L [id number] #### Steam Train Driver: LENORE ESCOBAR ([id number]) [facility] BLOOD BANK ([facility]) [address] [place] [address] RH TYPE IN BLOOD Positive Normal [facility] Comment on above: Performed By: #### L [id number] #### Steam Train Driver: LENORE ESCOBAR ([id number]) [facility] ([facility]) [address] [place] [address] CBC (HEMOGRAM)on 12-13-2022 Erythrocyte distribution width (RBC) [Ratio] 15.3 % High 11.5-14.5 [facility] Comment on above: Performed By: #### L [id number] #### Steam Train Driver: LENORE ESCOBAR ([id number]) [facility] ([facility]) [address] [place] [address] ERYTHROCYTE MEAN CORPUSCULAR HEMOGLOBIN CONCENTRATION (G/DL) BY AUTOMATED 33.2 % Normal 32.0-36.0 [facility] Comment on above: Performed By: #### L [id number] #### Steam Train Driver: LENORE ESCOBAR ([id number]) [facility] ([facility]) [address] [place] [address] Hematocrit (Bld) [Volume fraction] 43.8 % Normal 40.0-52.0 [facility] Comment on above: Performed By: #### L [id number] #### Steam Train Driver: LENORE ESCOBAR ([id number]) [facility] ([facility]) [address] [place] [address] Hemoglobin (Bld) [Mass/Vol] 14.5 g/dL Normal 13.0-18.0 [facility] Comment on above: Performed By: #### L [id number] #### Steam Train Driver: LENOER ESCOBAR ([id number]) [facility] ([facility]) [address] [place] [address] MCH (RBC) [Entitic mass] 30.9 pg Normal 26.0-34.0 [facility] Comment on above: Performed By: #### L [id number] #### Steam Train Driver: LENORE ESCOBAR ([id number]) [facility] ([facility]) [address] [place] [address] MCV (RBC) [Entitic vol] 92.8 fL Normal 80.0-98.0 [facility] Comment on above: Performed By: #### L [id number] #### Steam Train Driver: LENORE ESCOBAR ([id number]) [facility] ([facility]) [address] [place] [address] Platelet mean volume (Bld) [Entitic vol] 7.7 fL Normal 7.4-12.4 [facility] Comment on above: Performed By: #### L [id number] #### Steam Train Driver: LENORE ESCOBAR ([id number]) [facility] ([facility]) [address] [place] [address] PLATELETS (10*3/UL) IN BLOOD AUTOMATED COUNT 235 10*3/uL Normal 140-440 [facility] Comment on above: Performed By: #### L [id number] #### Steam Train Driver: LENORE ESCOBAR ([id number]) [facility] ([facility]) [address] [place] [address] RBC (Bld) [#/Vol] 4.71 10*6/uL Normal 4.40-5.90 [facility] Comment on above: Performed By: #### L [id number] #### Steam Train Driver: LENORE ESCOBAR ([id number]) [facility] ([facility]) [address] [place] [address] [place] WBC (Bld) [#/Vol] 5.5 10*3/uL Normal 3.6-10.7 [facility] Comment on above: Performed By: #### L [id number] #### Steam Train Driver: LENORE ESCOBAR ([id number]) [facility] ([facility] [address] [place] [address] PREPROCINSon 12-13-2022 PREPROCINS Medication List Accurate as of December 13, 2022 10:36 AM. Always use your most recent med list. cabergoline 0.5 MG tablet Commonly known as: Dostinex take 1 1/2 tablet by mouth ON SATURDAY AND SATURDAY Medication Adjustments for Surgery: Other (Comment) Notes to patient: Do not take it morning of surgery (you can take it when you get home) fenofibrate 160 MG tablet Commonly known as: Triglide Take 1 tablet (160 mg) by mouth daily. Medication Adjustments for Surgery: Take night before surgery furosemide 40 MG tablet Commonly known as: Lasix Take 1 tablet (40 mg) by mouth daily for 5 days. Medication Adjustments for Surgery: Other (Comment) Notes to patient: Do not take morning of surgery. levothyroxine 100 MCG tablet Commonly known as: Synthroid, Levoxyl Take 1 tablet (100 mcg) by mouth daily. Medication Adjustments for Surgery: Take morning of surgery niacin 1000 MG ER tablet Commonly known as: Niaspan Take 1 tablet (1,000 mg) by mouth daily. Medication Adjustments for Surgery: Take night before surgery rosuvastatin 10 MG tablet Commonly known as: Crestor Take 1 tablet (10 mg) by mouth daily. Medication Adjustments for Surgery: Take night before surgery tadalafil 5 MG tablet Commonly known as: Cialis Take 1 tablet (5 mg) by mouth daily. Medication Adjustments for Surgery: Other (Comment) Notes to patient: Do not take morning of surgery. tamsulosin 0.4 MG 24 hr capsule Commonly known as: Flomax Take 1 capsule (0.4 mg) by mouth daily. Medication Adjustments for Surgery: Take morning of surgery Xarelto 20 MG tablet Generic drug: rivaroxaban Take 1 tablet (20 mg) by mouth with evening meal. Take with food. Medication Adjustments for Surgery: Take night before surgery Additional Instructions: try Aquaphor ointment on skin after shower for moisture (just not morning of surgery) You may take Tylenol for pain. NO Motrin, ibuprofen or Advil for 24 hours prior to surgery or longer if instructed by your surgeon. NO Aleve or Naprosyn for 5 days prior to surgery or longer if instructed by your surgeon. DO NOT take aspirin or aspirin containing products for 5 days before surgery, or longer if instructed by your surgeon. Follow any instructions given to you by Dr. Arauz Shower with an antibacterial soap such as Dial or Safeguard or shower kit provided to you before coming to the hospital. No lotion, powder, deodorant or body sprays. No hair products. Remove all jewelry and leave it at home. Wear loose comfortable clothing to go home in. You may brush your teeth morning of surgery. Do not wear contacts day of surgery. No marijuana (THC), smoking or alcohol for 24 hours prior to surgery. Please arrange for a responsible adult to drive you home after your surgery and that there is a responsible adult with you for 24 hours post discharge. If you have specific questions, please call your surgeon. You will receive a call the day before your surgery to verify your arrival time and date. You will be asked to arrive at least two hours prior to your scheduled surgery time. Please bring your [facility] Surgical folder and medication list with you day of surgery. We encourage you to write down any questions you may have for the surgeon, anesthesiologist, or other members of the surgical team and bring it with you the day of surgery. Please bring photo ID and insurance information. AUTO FLEET MAINTENANCE MANAGER AND PARKING IN THE MAIN DECK ARE FREE DAY OF SURGERY. PARKING IN THE DECK-- AFTER PARKING TAKE THE ELEVATOR TO LEVEL ONE AND TAKE THE BRIDGE TO THE HOSPITAL. GO TO THE RIGHT AND GO AROUND THE CORNER TO THE SAME DAY SURGERY DESK AND CHECK IN THERE. IF GOING IN THE MAIN ENTRANCE-- TURN LEFT AND GO DOWN THE CARDOZO TO THE H ELEVATORS AND TAKE THEM TO ONE, LEFT OFF THE ELEVATOR AND GO AROUND TO THE SAME DAY DESK AND CHECK IN. Normal [facility] 36on 12-12-2022 36 SURGERY: LEFT ILIOFEMORAL DVT THROMBECTOMY AND STENTING 1 DATE OF SURGERY: 12/25/2022 10:30 AM PRE TESTIN12/13/2022 10:00 AM AUTH #: [id number] CARDIAC CLEARANCE NOT NEEDED POST OP OR OV: 01/07/2023 2:45 PM MEDS TO HOLD: NONE PT STATES NOT TAKING FUROSEMIDE MEDS TO CONTINUE: XARELTO DO NOT STOP 36 Noted and thank you. Normal [facility] 36 Patient is currently scheduled for: Left Iliofemoral Deep Vein Thrombosis Thrombectomy & Stenting on 11/2722 at 1:30 pm. Patient would like to speak with Dr. Arauz in regards to his case waiting until 12/21/22. He stated he does not understand why this is not being done sooner. Patient can be reached at [phone] No Panel Informationon 12-11 Occlusive subacute DVT in the left common iliac vein. Occlusive subacute DVT in the left external iliac vein. Distal left external iliac vein and left common femoral vein have non occlusive subacute DVT The IVC and right iliac veins are patent. IVC/Iliac Veins Left Common Iliac Vein: Subacute thrombus. Left External Iliac Vein: Subacute thrombus. The proximal IVC, middle IVC, distal IVC, right common iliac vein and right external iliac vein are patent with phasic, spontaneous flow. No evidence of thrombus visualized. Patient has known left common and external iliac DVT. Thrombus appears occlusive from the proximal common iliac vein through the mid external iliac vein. There is a small amount of reconstituted flow in the distal left external iliac and proximal left common femoral. The IVC and right iliac system appear widely patent. Proximal/mid IVC was visualized in segments due to bowel gas. Visualized segments appear patent. [employer] Coordinator Details A conroy scale, color Doppler imaging and spectral Doppler analysis ultrasound was performed. During the study longitudinal and transverse views were obtained. Pulsed wave doppler was performed. The exam was performed with the patient in the supine position. Overall the study quality was adequate. Study was technically difficult due to: bowel gas. CV CPACS Office Visiton 12-10-2022 Follow-up visit [id number] [place] 1960 M Date Provider Department Center 12/10/2022 [id number] ARAUZ [facility] None Family History Adopted: Yes Problem Relation Age of Onset No Known Problems Father Cancer Mother Comments: lung Family Status - Relation Status Age at Father Mother Level of Service:05110 IN OFFICE/OUTPATIENT ESTABLISHED MOD MDM 30-39 MIN Reason for Visit and Comments: Follow-up [472696] - [facility] 12/07 ED follow up, possible LLE thrombectomy candidate (Per [facility] aide surgeon) Progress Noteon 12-10-2022 Progress Note Chart reviewed of ED follow up Seen in [facility] ED on 12/07/2022 Reason: Deep vein thrombosis of proximal vein of left lower extremity. Discharge instructions: OK for activity as tolerated. Continue to take Xarelto regularly. Follow up in office for consideration of surgery. Return to ED with significantly worsening symptoms, loss of sensation, or significant color change of lower extremity. Per chart review patient has a office appointment on 12/09/[address] Davonte SANDERSON Vascular Surgery. Progress Note Vascular Surgery Office Visit Chief Complaint Patient presents with Follow-up [facility] 12/07 ED follow up, possible LLE thrombectomy candidate (Per [facility] district aide surgeon) HISTORY OF PRESENT ILLNESS: The patient is a 62 y.o. male who returns for follow-up of left iliofemoral deep vein thrombosis diagnosed in September 2022. He has been taking Xarelto since that time. The swelling goes up and down with his activity. He came to the emergency room over the weekend due to worsening swelling. Duplex does show deep vein thrombosis up to the left common iliac vein. I could not see any evaluation of the vena cava. There is no thrombus on the right. I found an old CT without contrast which does show significant compression of the left common iliac vein by the overlying right iliac artery. He has been taken to the 0 over the weekend and the swelling has improved but is still significant. He would like to see if there is any further treatment. He is retired but remains quite active.. Past Medical History: Past Medical History: Diagnosis Date Abscess of scrotum 09/15/2020 Last Assessment & Plan: Urology office was contacted and I spoke to the nurse practitioner Farzana and she was going to see if they could rearrange some schedules to get him in [place]. She was going to call and talk with Jaylen. 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 NSR Troponin negative. Echocardiogram EF 69, no significant valvular disease. Recommend cardiology as outpatient for further workup- likely stress test. - patient declining. 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 Tobacco use disorder Unspecified hearing loss Unspecified hypothyroidism Past Surgical History: Past Surgical History: Procedure Laterality Date CHOLECYSTECTOMY COLONOSCOPY KNEE SURGERY Right SMALL INTESTINE SURGERY TONSILLECTOMY (HISTORICAL) Current Medications: Prior to Admission medications Medication Sig Start Date End Date Taking? Authorizing Provider cabergoline (Dostinex) 0.5 MG tablet take 1 1/2 tablet by mouth ON SATURDAY AND Saturday10/31/22 Cheryl Basilio MD fenofibrate (Triglide) 160 MG tablet Take 1 tablet (160 mg) by mouth daily. 10/31/22 Cheryl Basilio MD furosemide (Lasix) 40 MG tablet Take 1 tablet (40 mg) by mouth daily for 5 days. 11/15/22 11/20/22 Cheryl Basilio MD levothyroxine (Synthroid, Levoxyl) 100 MCG tablet Take 1 tablet (100 mcg) by mouth daily. 10/31/22 Cheryl Basilio MD niacin (Niaspan) 1000 MG ER tablet Take 1 tablet (1,000 mg) by mouth daily. 10/31/22 Cheryl Basilio MD rivaroxaban (Xarelto) 20 MG tablet Take 1 tablet (20 mg) by mouth with evening meal. Take with food. 10/16/22 11/15/22 Tamara Turcios MD rosuvastatin (Crestor) 10 MG tablet Take 1 tablet (10 mg) by mouth daily. 10/31/22 Cheryl Basilio MD tadalafil (Cialis) 5 MG tablet Take 1 tablet (5 mg) by mouth daily. 10/24/22 Cheryl Basilio MD tamsulosin (Flomax) 0.4 MG 24 hr capsule Take 1 capsule (0.4 mg) by mouth daily. 10/16/22 Tamara Turcios MD Allergies: Meperidine Social History Socioeconomic History Marital status: Spouse name: Not on file Number of children: Not on file Years of education: Not on file Highest education level: Not on file Occupational History Not on file Tobacco Use Smoking status: Some Days Packs/day: .25 Types: Cigarettes Last attempt to quit: 03/2022 Years since quittin.7 Smokeless tobacco: Never Substance and Sexual Activity Alcohol use: Yes Comment: occassionally Drug use: Yes Types: Marijuana Comment: occassionally Sexual activity: Not on file Other Topics Concern Not on file Social History Narrative Not on file Social Determinants of Health Financial Resource Strain: Low Risk (02/06/2022) Overall Financial Resource Strain (CARDIA) Difficulty of Paying Living Expenses: Not hard at all Food Insecurity: No Food Insecurity (02/06/2022) Hunger Vital Sign Worried About Running Out of Food in the Last Year: Never true Ran Out of Food in the Last Year: Never true Transportation Needs: No Transportation Needs (10/12/2022) PRAPARE - Transportation Lack of Transportation (Medical): No (more content not included)... ED Nursing Noteon 12-07-2022 ED Nursing Note Surgery resident at bedside. Lorena Castillo RN 12/07/22 1423 ED Nursing Note Vascular at bedside. Lorena Castillo RN 12/07/22 1333 ED Nursing Note Pt ambulated to restroom with steady and even gait. Lorena Castillo RN 12/07/22 1319 ED Nursing Note Report from GARY Becerril. Lorena Castillo RN 12/07/22 1311 ED Nursing Note Bed: 06 Expected date: Expected time: Means of arrival: Comments: Triage Munira Mcgregor RN 12/07/22 9659 ED Provider Noteon ED Provider Note Emergency Department Encounter [facility] EMERGENCY DEPT Patient: Jaylen Queen : 1960 Date of Evaluation: 12/07/2022 ED Supervising Physician: Yolanda Patel DO I independently examined and evaluated Jaylen Queen. This will serve as my Supervisory note and shared attestation. I did perform a substantive portion of the visit including all aspects of the Medical Decision Making. I wore appropriate PPE for the entirety of this encounter. In brief, Jaylen Queen is a 62 y.o. that presents to the emergency department for leg swelling. Patient has a known blood clot. Is on Xarelto. Came to the ED as feels as if its gotten bigger. Focused exam: Does have a large swollen leg, normal DP pulses bilaterally. Brief ED course/MDM: At this time we did talk to vascular surgery they were comfortable with seeing the patient on an outpatient basis. Patient at this time does have good pulses, no evidence of cerulea Reagan's, patient has normal sensation no concerns for arterial occlusion. Patient is going to be discharged home we did give him return precautions. All diagnostic, treatment, and disposition decisions were made by myself in conjunction with the Resident. I also supervised hardy portions of any procedures performed by the Resident. For all further details of the patient's emergency department visit, please see their documentation. (Comment: Please note this report has been produced using speech recognition software and may contain errors related to that system including errors in grammar, punctuation, and spelling, as well as words and phrases that may be inappropriate. If there are any questions or concerns please feel free to contact the dictating provider for clarification.) Yolanda Patel DO [employer] Yolanda Patel DO 12/07/22 1809 ED Provider Note EMERGENCY DEPARTMENT ENCOUNTER Pt Name: Jaylen Queen Birthdate 1960 Date of evaluation: 12/07/2022 ED Provider: Kendra Sauer APRN EDcare was supervised by Dr. Patel who independently examined and evaluated the patient. Please see their attestation note for further details. CHIEF COMPLAINT Chief Complaint Patient presents with Leg Pain Pt has DVT in L leg since mid September. Pt taking blood thinner. Pain, swelling, and stiffness worsening in L leg starting end of last week. HISTORY OF PRESENT ILLNESS (Location/Symptom, Timing/Onset, Context/Setting, Quality, Duration, Modifying Factors, Severity) Note limiting factors. I wore appropriate PPE for the entirety of this encounter. HPI Jaylen Queen is a 62 y.o. who presents to the emergency department complaining of worsening pain and swelling in his LLE. Patient reports that he was seen in September and diagnosed with DVTs throughout his LLE. Patient was placed on outpatient Xarelto and instructed to follow-up. Patient was in [place] this last week when the pain and swelling increased. He reported to the ED in [place] at which time he had an EKG and another ultrasound of his leg showing that the clots were still there. Patient arrived back to [place] last night and states that he spoke with a nurse in the Vascular center who instructed him to come to the ED for vascular surgery evaluation. Patient reports that his is still taking hishome Xarelto, however pain and swelling have increased and are interfering with ADLs. Nursing Notes were reviewed. Limitations to history: None Outside historians: None REVIEW OF SYSTEMS Review of Systems Constitutional: Negative for chills and fever. HENT: Negative for ear pain and sore throat. Eyes: Negative for pain and visual disturbance. Respiratory: Negative for cough and shortness of breath. Cardiovascular: Negative for chest pain and palpitations. Gastrointestinal: Negative for abdominal pain and vomiting. Genitourinary: Negative for dysuria and hematuria. Musculoskeletal: Negative for arthralgias and back pain. LLE Swelling, pain and warmth Skin: Negative for color change and rash. Neurological: Negative for seizures and syncope. All other systems reviewed and are negative. Pertinent positives and negatives as per HPI. PAST MEDICAL HISTORY Past Medical History: Diagnosis Date Abscess of scrotum 09/15/2020 Last Assessment & Plan: Urology office was contacted and I spoke to the nurse practitioner Farzana and she was going to see if they could rearrange some schedules to get him in [place]. She was going to call and talk with Jaylen. 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 NSR Troponin negative. Echocardiogram EF 69, no significant valvular disease. Recommend cardiology as outpatient for further workup- likely stress test. - patient declining. 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 Tobacco use disorder Unspecified hearing loss Unspecified hypothyroidism SURGICAL HISTORY Past Surgical History: Procedure Laterality Date CHOLECYSTECTOMY COLONOSCOPY KNEE SURGERY Right SMALL INTESTINE SURGERY TONSILLECTOMY (HISTORICAL) CURRENT MEDICATIONS Discharge Medication List as of 12/07/2022 3:13 PM CONTINUE these medications which have NOT CHANGED Details cabergoline (Dostinex) 0.5 MG tablet take 1 1/2 tablet by mouth ON SATURDAY AND SATURDAY, Normal fenofibrate (Triglide) 160 MG tablet Take 1 tablet (160 mg) by mouth daily., Starting Sat10/31/2022, Normal furosemide (Lasix) 40 MG tablet Take 1 tablet (40 mg) by mouth daily for 5 days., Starting Sat11/15/2022, Until Sat11/20/2022, Normal levothyroxine (Synthroid, Levoxyl) 100 MCG tablet Take 1 tablet (100 mcg) by mouth daily., Starting Sat10/31/2022, Normal niacin (Niaspan) 1000 MG ER tablet Take 1 tablet (1,000 mg) by mouth daily., Starting Sat10/31/2022, Normal rivaroxaban (Xarelto) 20 MG tablet Take 1 tablet (20 mg) by mouth with evening meal. Take with food., Starting Sat10/16/2022, Until Sat11/15/2022, Normal rosuvastatin (Crestor) 10 MG tablet Take 1 tablet (10 mg) by mouth daily., Starting Sat10/31/2022, Normal tadalafil (Cialis) 5 MG tablet Rickey (more content not included)... Normal [facility] 36on 12-03-2022 36 I called pt to offer OV with Dr. Arauz today for extensive LLE DVT extending to iliac vein. Pt is in [place] and is in severe pain and has extreme swelling where his leg is twice the size. I told him to go to ED down there in [place] and he declined. He states he will go to the [facility] ED in [place] when he returns on Saturday. 36 S: Patient spoke wit h [facility] nurse regarding acute deep vein thrombosis of left leg. B: Seen in ED on 10/12/22. A: Patient has a history of blood clots in the left leg and is currently on Xarelto daily. At the end of every day his left leg is swollen twice the size of the other leg every day with pain. Swelling has increased since diagnosis of blood clot in September. Swelling is from left thigh down to the left foot. Calf is extremely painful. Pain is described as intermittent, dull, achy and throbbing and is moderate to severe in intensity. He is wanting to see a vascular specialist to get to the bottom of this as he does not want to lose my leg. Denies shortness of breath or chest pain. R: Second level triage, via phone, with Dr. Basilio and he recommends evaluation in the emergency room for increases swelling and he will put in a referral to Vascular Surgery. Patient was given physician recommendations and he then tells this nurse I am at the [facility] in [place] and will not return to [place] until Saturday. Again, highly encouraged patient to seek evaluation in an emergency room in [place] per the physician's recommendations. Discussed blood clots with patient and including should a clot dislodge and go to heart, lung or brain. Also discussed traveling with blood clots. Both verbalized understanding to all education and care advice. No further needs at this time. Patient instructed to call back with new or worsening symptoms. Reason for Disposition History of prior 'blood clot' in leg or lungs (i.e., deep vein thrombosis, pulmonary embolism) Protocols used: Leg [id number] No Panel Informationon 11-14 Acute extensive DVT in the left lower extremity as described below. Known DVT's. No change from previous exam (10/15/2022). No evidence of deep vein and superficial thrombosis in the right lower extremity. No evidence of superficial thrombosis in the left lower extremity. Right Lower Venous No evidence of deep vein and superficial thrombosis in the right lower extremity. Left Lower Venous No evidence of superficial thrombosis in the left lower extremity. Common Iliac Vein: Acute occlusive thrombus. External Iliac Vein: Acute occlusive thrombus. Common Femoral Vein: Acute occlusive thrombus. Saphenofemoral Junction: Acute occlusive thrombus. Profunda Femoral Vein: Acute occlusive thrombus. Proximal Femoral Vein: Acute occlusive thrombus. Middle Femoral Vein: Acute occlusive thrombus. Distal Femoral Vein: Acute non-occlusive thrombus. Comparison Study The exam was compared to the study performed on 10/15/2022. No change from previous exam. [employer] Coord[employer] Details A conroy scale, color Doppler imaging, spectral Doppler analysis and B-flow ultrasound was performed. During the study longitudinal and transverse views were obtained. Pulsed wave doppler was performed. The exam was performed with the patient in the supine position. Overall the study quality was adequate. Study was technically difficult due to: diffuse subcutaneous edema. CV CPACS CBC W Auto Differential pane l (Bld)Ordered By: Jose Samayoa on 10-16-2022 Basophils (Bld) [#/Vol] 0.1 10*3/uL 0.0 - 0.2 10*3/uL [facility] Basophils/100 WBC (Bld) 1.0 % 0.0 - 2.0 % [facility] Eosinophils (Bld) [#/Vol] 0.4 10*3/uL 0. 0 - 0.5 10*3/uL [facility] Eosinophils/100 WBC (Bld) 4.9 % 1.0 - 6.0 % [facility] Erythrocyte distribution width (RBC) [Ratio] 13.0 % 11.5 - 14.5 % [facility] Hematocrit (Bld) [Volume fraction] 39.0 % Low 40.0 - 52.0 % [facility] Hemoglobin (Bld) [Mass/Vol] 13.5 g/dL 13.0 - 18.0 g/dL [facility] Interpretation and review of laboratory results Abnormal [facility] th Lymphocytes (Bld) [#/Vol] 2.0 10*3/uL 1. 0 - 4.3 10*3/uL [facility] Lymphocytes/100 WBC (Bld) 24.5 % 20 .0 - 40.0 % [facility] MCH (RBC) [Entitic mass] 31.0 pg 26. 0 - 34.0 pg [facility] MCHC (RBC) [Mass/Vol] 34.6 % 32.0 - 36.0 % [facility] MCV (RBC) [Entitic vol] 89.6 fL 80.0 - 98.0 fL [facility] Monocytes (Bld) [#/Vol] 0.8 10*3/uL 0.0 - 0.8 10*3/uL [facility] Monocytes/100 WBC (Bld) 10.4 % High 2.0 - 10.0 % [facility] Neutrophils (Bld) [#/Vol] 4.7 10*3/uL 1. 8 - 7.0 10*3/uL [facility] Neutrophils/100 WBC (Bld) 59.2 % 40 .0 - 80.0 % [facility] Nucleated RBC/100 WBC (Bld) [Ratio] 0.0 % [facility] Platelet mean volume (Bld) [Entitic vol] 7.0 fL Low 7.4 - 12.4 fL [facility] Platelets (Bld) [#/Vol] 277 10*3/uL 140 - 440 10*3/uL [facility] RBC (Bld) [#/Vol] 4.36 10*6/uL Low 4.40 - 5.9 0 10*6/uL [facility] WBC (Bld) [#/Vol] 8.0 10*3/uL 3.6 - 10.7 10*3/uL [facility] Comprehensive metabolic 1998 panelon 10-16-2022 Albumin [Mass/Vol] 3.9 g/dL 3.5 - 5.0 g/dL [facility] ALP [Catalytic activity/Vol] 54 U/L 38 - 126 U/L [facility] ALT [Catalytic activity/Vol] 11 U/L 0 - 49 U/L [facility] Anion gap [Moles/Vol] 7 mmol/L 3 - 13 mmol/L [facility] AST [Catalytic activity/Vol] 20 U/L 15 - 46 U/L [facility] Bilirubin [Mass/Vol] 0.5 mg/dL 0.2 - 1 .3 mg/dL [facility] Calcium [Mass/Vol] 9.9 mg/dL 8.4 - 10. 4 mg/dL [facility] Chloride [Moles/Vol] 104 mmol/L 98 - 10 7 mmol/L [facility] CO2 [Moles/Vol] 24 mmol/L 22 - 30 mmol/L [facility] Creatinine [Mass/Vol] 1.03 mg/dL 0.66 - 1.25 mg/dL [facility] GFR/1.73 sq M.predicted MDRD (S/P/Bld) [Vol rate/Area] 82.6 mL/min/{1.73_m2} - PINF [facility] Comment on above: Calculation based on the Chronic Kidney Disease Epidemiology Collaboration (CKD-EPI) equation refit without adjustment for race Glucose [Mass/Vol] 95 mg/dL 70 - 100 mg/dL [facility] Interpretation and review of laboratory results Normal [facility] Potassium [Moles/Vol] 3.9 mmol/L 3.5 - 5.1 mmol/L [facility] Protein [Mass/Vol] 7.1 g/dL 6.3 - 8.2 g/dL [facility] Sodium [Moles/Vol] 135 mmol/L 135 - 145 mmol/L [facility] Urea nitrogen [Mass/Vol] 15 mg/dL 9 - 20 mg/dL [facility] CBC W Auto Differential pane l (Bld)Ordered By: Jaswant Mendoza on 10-15-2022 Basophils (Bld) [#/Vol] 0.1 10*3/uL 0.0 - 0.2 10*3/uL [facility] Basophils/100 WBC (Bld) 1.1 % 0.0 - 2.0 % [facility] Eosinophils (Bld) [#/Vol] 0.4 10*3/uL 0. 0 - 0.5 10*3/uL [facility] Eosinophils/100 WBC (Bld) 4.6 % 1.0 - 6.0 % [facility] Erythrocyte distribution width (RBC) [Ratio] 13.2 % 11.5 - 14.5 % [facility] Hematocrit (Bld) [Volume fraction] 38.8 % Low 40.0 - 52.0 % [facility] Hemoglobin (Bld) [Mass/Vol] 13.3 g/dL 13.0 - 18.0 g/dL [facility] Interpretation and review of laboratory results Abnormal [facility] Lymphocytes (Bld) [#/Vol] 1.3 10*3/uL 1. 0 - 4.3 10*3/uL [facility] Lymphocytes/100 WBC (Bld) 14.7 % Low 20 .0 - 40.0 % [facility] MCH (RBC) [Entitic mass] 30.9 pg 26. 0 - 34.0 pg [facility] MCHC (RBC) [Mass/Vol] 34.4 % 32.0 - 36.0 % [facility] [place] MCV (RBC) [Entitic vol] 89.9 fL 80.0 - 98.0 fL [facility] Monocytes (Bld) [#/Vol] 1.0 10*3/uL High 0.0 - 0.8 10*3/uL [facility] Monocytes/100 WBC (Bld) 11.0 % High 2.0 - 10.0 % [facility] [place] Neutrophils (Bld) [#/Vol] 6.1 10*3/uL 1. 8 - 7.0 10*3/uL [facility] Neutrophils/100 WBC (Bld) 68.6 % 40 .0 - 80.0 % [facility] [place] Nucleated RBC/100 WBC (Bld) [Ratio] 0.0 % [facility] [place] Platelet mean volume (Bld) [Entitic vol] 6.9 fL Low 7.4 - 12.4 fL [facility] [place] Platelets (Bld) [#/Vol] 272 10*3/uL 140 - 440 10*3/uL [facility] RBC (Bld) [#/Vol] 4.32 10*6/uL Low 4.40 - 5.9 0 10*6/uL [facility] WBC (Bld) [#/Vol] 8.8 10*3/uL 3.6 - 10.7 10*3/uL [facility] CT Head WO contraston [address] examination of the brain. Report Dictated on Electronically Signed By: Noe Medina DO Electronically Signed Date/Time: 10/15/2022 2:57 PM [facility] Patient Name: JAYLEN QUEEN : 1960 Exam Date/Time: 10/15/2022 13:34 Procedure: CT HEAD WO IV CONTRAST Ordering Provider: REYES GREGORY Reason For Exam: Headache, sudden, severe CT HEAD WITHOUT CONTRAST: INDICATION: Sudden onset of headache COMPARISON: None. Unenhanced CT images of the head from skull base to vertex were obtained. The images are reviewed in the axial, sagittal and coronal planes. Dose reduction was employed with automated exposure control. The ventricles and sulci are within normal limits for the patient's age. There is no evidence of hemorrhage, mass or large acute infarct. There is no mass or significant shift of the midline structures. There are no extraaxial or posterior fossa masses or fluid collections. The hypothalamic and parasellar regions are unremarkable. The paranasal sinuses are clear. [facility] Noe Medina DO - 10/15/2022 [facility] Name: [facility] : 1960 [id number] Exam Date/Time: 10/15/2022 13:34 Procedure: CT HEAD WO IV CONTRAST Ordering Provider: REYES GREGORY Reason For Exam: Headache, sudden, severe CT HEAD WITHOUT CONTRAST: INDICATION: Sudden onset of headache COMPARISON: None. Unenhanced CT images of the head from skull base to vertex were obtained. The images are reviewed in the axial, sagittal and coronal planes. Dose reduction was employed with automated exposure control. The ventricles and sulci are within normal limits for the patient's age. There is no evidence of hemorrhage, mass or large acute infarct. There is no mass or significant shift of the midline structures. There are no extraaxial or posterior fossa masses or fluid collections. The hypothalamic and parasellar regions are unremarkable. The paranasal sinuses are clear. IMPRESSION: Negative CT examination of the brain. Report Dictated on Electronically Signed By: Noe Medina DO Electronically Signed Date/Time: 10/15/2022 2:57 PM EDT [facility] Radiology Study observation (narrative) [facility] CT Head WO contrastOrdered B y: Noe Medina on 10-15-2022 [facility] Work Phone: Comprehensive metabolic 1998 panelon 10-15-2022 Albumin [Mass/Vol] 3.8 g/dL 3.5 - 5.0 g/dL [facility] ALP [Catalytic activity/Vol] 54 U/L 38 - 126 U/L [facility] ALT [Catalytic activity/Vol] 11 U/L 0 - 49 U/L [facility] Anion gap [Moles/Vol] 8 mmol/L 3 - 13 mmol/L [facility] AST [Catalytic activity/Vol] 19 U/L 15 - 46 U/L [facility] Bilirubin [Mass/Vol] 0.5 mg/dL 0.2 - 1 .3 mg/dL [facility] Calcium [Mass/Vol] 9.8 mg/dL 8.4 - 10. 4 mg/dL [facility] Chloride [Moles/Vol] 104 mmol/L 98 - 10 7 mmol/L [facility] CO2 [Moles/Vol] 26 mmol/L 22 - 30 mmol/L [facility] Creatinine [Mass/Vol] 1.06 mg/dL 0.66 - 1.25 mg/dL [facility] GFR/1.73 sq M.predicted MDRD (S/P/Bld) [Vol rate/Area] 79.8 mL/min/{1.73_m2} - PINF [facility] Comment on above: Calculation based on the Chronic Kidney Disease Epidemiology Collaboration (CKD-EPI) equation refit without adjustment for race Glucose [Mass/Vol] 105 mg/dL High 70 - 100 mg/dL [facility] Interpretation and review of laboratory results Abnormal [facility] Potassium [Moles/Vol] 4.1 mmol/L 3.5 - 5.1 mmol/L [facility] Protein [Mass/Vol] 7.1 g/dL 6.3 - 8.2 g/dL [facility] Sodium [Moles/Vol] 137 mmol/L 135 - 145 mmol/L [facility] Urea nitrogen [Mass/Vol] 16 mg/dL 9 - 20 mg/dL [facility] Laboratory - Chemistry and C hemistry - challengeon 10-15-2022 Glucose [Mass/Vol] 98 mg/dL 70 - 100 mg/dL [facility] No Panel Informationon 10-15 Interpretation and review of laboratory results Normal [facility] Performed by: [facility], [address] [place], [place] [id number] CLIA ID: [id number] [facility] Acute extensive DVT in the left lower extremity as described below. Thrombus extends from left Common iliac vein through the distal femoral vein. Distal IVC appears patent but study limited by overlying bowel gas. No evidence of deep vein or superficial vein thrombosis in the right lower extremity. Vessels demonstrate normal compressibility, color filling, and phasic and spontaneous flow. Right Lower Venous No evidence of deep vein or superficial vein thrombosis. The common femoral, saphenofemoral junction, femoral, popliteal, gastrocnemius, soleal, greater saphenous, posterior tibial, and peroneal veins were imaged in the transverse view and showed normal compressibility. The common femoral, middle femoral, and popliteal veins were imaged in the longitudinal view and showed normal color filling and normal phasic and spontaneous flow. Left Lower Venous Inferior vena cava: Patent. Common Iliac Vein: Acute occlusive thrombus. External Iliac Vein: Acute occlusive thrombus. Common Femoral Vein: Acute occlusive thrombus. Greater Saphenous Vein: Enitre vessel patent, compressible. Saphenofemoral Junction: Acute non-occlusive thrombus. Small Saphenous Vein: Patent, compressible. Profunda Femoral Vein: Acute occlusive thrombus. Femoral Vein: Acute occlusive thrombus. Distal Femoral Vein: Acute non-occlusive thrombus. Popliteal Vein: Patent, normal phasicity, spontaneous, normal augmentation, compressible. Gastrocnemius Vein: Patent, compressible. Soleal Vein: Patent, compressible. Posterior Tibial Vein: Patent, compressible. Peroneal Vein: Patent, compressible. Rouleaux flow noted in the left distal femoral and popliteal veins. Limited visualization of iliac veins due to bowel gas. Thrombus appears to extend into the left common iliac vein. The distal IVC appears to be widely patent. Comparison Study The exam was compared to the study performed on 10/12/2022. There is thrombus throughout the common femoral, femoral, popliteal, and calf veins in the left lower extremity. The vessels are noncompressible with no color flow on Doppler imaging. The right common femoral vein is normally compressible. [employer] Coord[employer] Details A conroy scale, color Doppler imaging and spectral Doppler analysis ultrasound was performed. During the study longitudinal and transverse views were obtained. Pulsed wave doppler was performed. The exam was performed with the patient in the supine position. Overall the study quality was adequate. Study was technically difficult due to: bowel gas. CV CPACS CBC W Auto Differential pane l (Bld)Ordered By: Rowdy Wright on 10-14-2022 Basophils (Bld) [#/Vol] 0.0 10*3/uL 0.0 - 0.2 10*3/uL [facility] Basophils/100 WBC (Bld) 0.6 % 0.0 - 2.0 % [facility] Eosinophils (Bld) [#/Vol] 0.6 10*3/uL High 0. 0 - 0.5 10*3/uL [facility] Eosinophils/100 WBC (Bld) 7.1 % High 1.0 - 6.0 % [facility] Erythrocyte distribution width (RBC) [Ratio] 13.4 % 11.5 - 14.5 % [facility] Hematocrit (Bld) [Volume fraction] 37.0 % Low 40.0 - 52.0 % [facility] Hemoglobin (Bld) [Mass/Vol] 12.7 g/dL Low 13.0 - 18.0 g/dL [facility] Interpretation and review of laboratory results Abnormal [facility] th Lymphocytes (Bld) [#/Vol] 2.1 10*3/uL 1. 0 - 4.3 10*3/uL [facility] Lymphocytes/100 WBC (Bld) 26.2 % 20 .0 - 40.0 % [facility] MCH (RBC) [Entitic mass] 31.2 pg 26. 0 - 34.0 pg [facility] MCHC (RBC) [Mass/Vol] 34.3 % 32.0 - 36.0 % [facility] MCV (RBC) [Entitic vol] 90.9 fL 80.0 - 98.0 fL [facility] Monocytes (Bld) [#/Vol] 0.9 10*3/uL High 0.0 - 0.8 10*3/uL [facility] Monocytes/100 WBC (Bld) 11.1 % High 2.0 - 10.0 % [facility] Neutrophils (Bld) [#/Vol] 4.5 10*3/uL 1. 8 - 7.0 10*3/uL [facility] Neutrophils/100 WBC (Bld) 55.0 % 40 .0 - 80.0 % [facility] Nucleated RBC/100 WBC (Bld) [Ratio] 0.0 % [facility] Platelet mean volume (Bld) [Entitic vol] 7.8 fL 7.4 - 12.4 fL [facility] Platelets (Bld) [#/Vol] 255 10*3/uL 140 - 440 10*3/uL [facility] RBC (Bld) [#/Vol] 4.08 10*6/uL Low 4.40 - 5.9 0 10*6/uL [facility] WBC (Bld) [#/Vol] 8.2 10*3/uL 3.6 - 10.7 10*3/uL [facility] Comprehensive metabolic 1998 panelon 10-14-2022 Albumin [Mass/Vol] 3.7 g/dL 3.5 - 5.0 g/dL [facility] ALP [Catalytic activity/Vol] 53 U/L 38 - 126 U/L [facility] ALT [Catalytic activity/Vol] 11 U/L 0 - 49 U/L [facility] Anion gap [Moles/Vol] 8 mmol/L 3 - 13 mmol/L [facility] AST [Catalytic activity/Vol] 18 U/L 15 - 46 U/L [facility] Bilirubin [Mass/Vol] 0.4 mg/dL 0.2 - 1 .3 mg/dL [facility] Calcium [Mass/Vol] 9.9 mg/dL 8.4 - 10. 4 mg/dL [facility] Chloride [Moles/Vol] 105 mmol/L 98 - 10 7 mmol/L [facility] CO2 [Moles/Vol] 26 mmol/L 22 - 30 mmol/L [facility] Creatinine [Mass/Vol] 1.15 mg/dL 0.66 - 1.25 mg/dL [facility] GFR/1.73 sq M.predicted MDRD (S/P/Bld) [Vol rate/Area] 72.4 mL/min/{1.73_m2} - PINF [facility] Comment on above: Calculation based on the Chronic Kidney Disease Epidemiology Collaboration (CKD-EPI) equation refit without adjustment for race Glucose [Mass/Vol] 90 mg/dL 70 - 100 mg/dL [facility] Interpretation and review of laboratory results Normal [facility] Potassium [Moles/Vol] 4.4 mmol/L 3.5 - 5.1 mmol/L [facility] Protein [Mass/Vol] 6.4 g/dL 6.3 - 8.2 g/dL [facility] Sodium [Moles/Vol] 138 mmol/L 135 - 145 mmol/L [facility] Urea nitrogen [Mass/Vol] 17 mg/dL 9 - 20 mg/dL [facility] [facility] - Chemistry and C hemistry - challengeon 10-14-2022 Parathyrin.intact [Mass/Vol] 39.0 pg/mL 7.5 - 53.5 pg/mL [facility] Parathyrin.intact [Mass/Vol] on 10-14-2022 Interpretation and review of laboratory results Normal [facility] Basic metabolic 1998 panelon 10-12-2022 Anion gap [Moles/Vol] 12 mmol/L 3 - 13 mmol/L [facility] Calcium [Mass/Vol] 11.1 mg/dL High 8.4 - 10. 4 mg/dL [facility] Chloride [Moles/Vol] 104 mmol/L 98 - 10 7 mmol/L [facility] CO2 [Moles/Vol] 21 mmol/L Low 22 - 30 mmol/L [facility] Creatinine [Mass/Vol] 1.45 mg/dL High 0.66 - 1.25 mg/dL [facility] GFR/1.73 sq M.predicted MDRD (S/P/Bld) [Vol rate/Area] 54.8 mL/min/{1.73_m2} Low - PINF [facility] Comment on above: Calculation based on the Chronic Kidney Disease Epidemiology Collaboration (CKD-EPI) equation refit without adjustment for race Glucose [Mass/Vol] 121 mg/dL High 70 - 100 mg/dL [facility] Interpretation and review of laboratory results Abnormal [facility] Potassium [Moles/Vol] 4.8 mmol/L 3.5 - 5.1 mmol/L [facility] Sodium [Moles/Vol] 137 mmol/L 135 - 145 mmol/L [facility] Urea nitrogen [Mass/Vol] 18 mg/dL 9 - 20 mg/dL [facility] CBC W Auto Differential pane l (Bld)Ordered By: Won Valencia on 10-12-2022 Basophils (Bld) [#/Vol] 0.1 10*3/uL 0.0 - 0.2 10*3/uL [facility] Basophils/100 WBC (Bld) 0.7 % 0.0 - 2.0 % [facility] Eosinophils (Bld) [#/Vol] 0.3 10*3/uL 0. 0 - 0.5 10*3/uL [facility] Eosinophils/100 WBC (Bld) 3.0 % 1.0 - 6.0 % [facility] Erythrocyte distribution width (RBC) [Ratio] 13.0 % 11.5 - 14.5 % [facility] Hematocrit (Bld) [Volume fraction] 43.0 % 40.0 - 52.0 % [facility] Hemoglobin (Bld) [Mass/Vol] 14.6 g/dL 13.0 - 18.0 g/dL [facility] Immature granulocytes (Bld) [#/Vol] 0.1 10*3/uL High NINF - 0.0 10*3/uL [facility] Immature granulocytes/100 WBC (Bld) 0.6 % High NINF - 0.0 % [facility] Interpretation and review of laboratory results Abnormal [facility] th Lymphocytes (Bld) [#/Vol] 1.6 10*3/uL 1. 0 - 4.3 10*3/uL [facility] Lymphocytes/100 WBC (Bld) 16.4 % Low 20 .0 - 40.0 % [facility] MCH (RBC) [Entitic mass] 31.0 pg 26. 0 - 34.0 pg [facility] MCHC (RBC) [Mass/Vol] 34.0 % 32.0 - 36.0 % [facility] MCV (RBC) [Entitic vol] 91.3 fL 80.0 - 98.0 fL [facility] Monocytes (Bld) [#/Vol] 0.9 10*3/uL High 0.0 - 0.8 10*3/uL [facility] Monocytes/100 WBC (Bld) 9.3 % 2.0 - 10.0 % [facility] Neutrophils (Bld) [#/Vol] 6.9 10*3/uL 1. 8 - 7.0 10*3/uL [facility] Neutrophils/100 WBC (Bld) 70.0 % 40 .0 - 80.0 % [facility] Platelet mean volume (Bld) [Entitic vol] 9.0 fL 7.4 - 12.4 fL [facility] Comment on above: MPV is a calculated measurement using platelet volume ratio Platelets (Bld) [#/Vol] 273 10*3/uL 140 - 440 10*3/uL [facility] RBC (Bld) [#/Vol] 4.71 10*6/uL 4.40 - 5.9 0 10*6/uL [facility] WBC (Bld) [#/Vol] 9.9 10*3/uL 3.6 - 10.7 10*3/uL [facility] Laboratory - Chemistry and C hemistry - challengeon 10-12-2022 Lactate [Moles/Vol] 1.2 mmol/L 0.7 - 2. 0 mmol/L [facility] CK [Catalytic activity/Vol] 54 U/L 30 - 170 U/L [facility] No Panel Informationon 10-12 Positive for DVT throughout the left lower extremity. These findings were discussed with physician/provider PACHECO NEGRON by Secure Chat on 10/12/2022 at 3:16 PM EDT. Report Dictated on Electronically Signed By: Chan Woodard MD Electronically Signed Date/Time: 10/12/2022 3:20 PM EDT [facility] Patient Name: JAYLEN QUEEN : 1960 Exam Date/Time: 10/12/2022 14:37 Procedure: [facility] US LOWER EXTREMITY VENOUS DUPLEX LEFT Ordering Provider: NEGRON NICHOLAS Reason For Exam: Edema left calf LEFT LOWER EXTREMITY VENOUS DUPLEX ULTRASOUND CLINICAL HISTORY: Leg pain Grayscale and color Doppler sonographic images of the left lower extremity were obtained. Comparisons available: None. FINDINGS: There is thrombus throughout the common femoral, femoral, popliteal, and calf veins in the left lower extremity. The vessels are noncompressible with no color flow on Doppler imaging. The right common femoral vein is normally compressible. [facility] Chan Woodard M D - 10/12/2022 Patient Name: JAYLEN QUEEN : 1960 Exam Date/Time: 10/12/2022 14:37 Procedure: VAS US LOWER EXTREMITY VENOUS DUPLEX LEFT Ordering Provider: NEGRON NICHOLAS Reason For Exam: Edema left calf LEFT LOWER EXTREMITY VENOUS DUPLEX ULTRASOUND CLINICAL HISTORY: Leg pain Grayscale and color Doppler sonographic images of the left lower extremity were obtained. Comparisons available: None. FINDINGS: There is thrombus throughout the common femoral, femoral, popliteal, and calf veins in the left lower extremity. The vessels are noncompressible with no color flow on Doppler imaging. The right common femoral vein is normally compressible. IMPRESSION: Positive for DVT throughout the left lower extremity. These findings were discussed with physician/provider PACHECO NEGRON by Secure Chat on 10/12/2022 at 3:16 PM EDT. Report Dictated on Electronically Signed By: Chan Woodard MD Electronically Signed Date/Time: 10/12/2022 3:20 PM EDT [facility] Interpretation and review of laboratory results Normal [facility] XR Tibia and Fibula - left 2 Viewson 10-12-2022 No acute osseous abnormality. Report Dictated on Electronically Signed By: Jesús Danielson MD Electronically Signed Date/Time: 10/12/2022 3:24 PM EDT [facility] Patient Name: JAYLEN QUEEN : 1960 Exam Date/Time: 10/12/2022 14:08 Procedure: XR TIBIA FIBULA 2 VIEWS LEFT Ordering Provider: NEGRON NICHOLAS Reason For Exam: PAIN EXAMINATION: XR TIBIA FIBULA 2 VIEWS LEFT HISTORY: PAIN. TECHNIQUE: XR TIBIA FIBULA 2 VIEWS LEFT COMPARISON: None available RESULT: No acute fracture or malalignment. Enthesophyte of the quadriceps and. No radiopaque foreign body or soft tissue gas. Vascular calcifications. [facility] Jesús Danielson MD - 10/12/2022 Patient Name: JAYLEN QUEEN : 1960 Exam Date/Time: 10/12/2022 14:08 Procedure: XR TIBIA FIBULA 2 VIEWS LEFT Ordering Provider: NEGRON NICHOLAS Reason For Exam: PAIN EXAMINATION: XR TIBIA FIBULA 2 VIEWS LEFT HISTORY: PAIN. TECHNIQUE: XR TIBIA FIBULA 2 VIEWS LEFT COMPARISON: None available RESULT: No acute fracture or malalignment. Enthesophyte of the quadriceps and. No radiopaque foreign body or soft tissue gas. Vascular calcifications. IMPRESSION: No acute osseous abnormality. Report Dictated on Electronically Signed By: Jesús Danielson MD Electronically Signed Date/Time: 10/12/2022 3:24 PM EDT [facility] Radiology Study observation (narrative) [facility] XR Tibia and Fibula - left 2 ViewsOrdered By: Jesús Danielson on 10-12-2022 [facility] Work Phone: Urinalysis macro (dipstick) panel (U)on 09-13-2022 Bilirubin, UA Negative [facility] Blood, UA Trace [facility] Glucose, UA Negative [facility] Interpretation and review of laboratory results Abnormal [facility] Ketones, UA Negative [facility] Leukocytes, UA Moderate [facility] Nitrite, UA Negative [facility] pH, UA 6.0 [facility] Protein, UA Negative [facility] Spec Grav, UA 1.030 [facility] Urobilinogen, [facility]A 0.2 [facility] Bacteria identified Cx Nom ( U)on 08-20-2022 Interpretation and review of laboratory results Abnormal [facility] Urine culture (clean catch)o n 08-20-2022 Bacteria identified Cx Nom (U) SEE NOTE Abnormal [facility] Comment on above: CULTURE, URINE, ROUTINE Micro Number: [id number] Test Status: Final Specimen Source: Urine, clean catch Specimen Quality: Adequate Result: 10,000-49,000 CFU/mL of Escherichia coli (ESBL) E.coli (ESBL) INT JADE AMOX/CLAVULANATE S 4 AMPICILLIN R >=32 1 AMP/SULBACTAM I 16 CEFAZOLIN R >=64 2 CEFEPIME S <=1 CEFTAZIDIME S <=1 CEFTRIAXONE R 8 CIPROFLOXACIN R >=4 GENTAMICIN S <=1 IMIPENEM S <=0.25 LEVOFLOXACIN R >=8 NITROFURANTOIN S <=16 PIP/TAZOBACTAM S <=4 TOBRAMYCIN S <=1 TRIMETHOPRIM/SULFA R >=320 ESBL RESULT: * 3 S=Susceptible I=Intermediate R=Resistant * = Not Tested NR = Not Reported NN = See Therapy Comments THERAPY COMMENTS Note 1: Extended spectrum beta-lactamase (ESBL) producing organisms demonstrate decreased activity with penicillins, cephalosporins and aztreonam. Note 2: For uncomplicated UTI caused by E. coli, K. pneumoniae or P. mirabilis: Cefazolin is susceptible if JADE <32 mcg/mL and predicts susceptible to the oral agents cefaclor, cefdinir, cefpodoxime, cefprozil, cefuroxime, cephalexin and loracarbef. Note 3: The organism has been confirmed as an ESBL content producer. Urinalysis macro (dipstick) panel (U)Ordered By: Nelli Lama on 08-17-2022 Bilirubin, UA Negative [facility] Blood, UA Moderate [facility] Comment on above: non-hemolyzed Clarity (U) Slightly Cloudy Abnormal Clear [facility] Color (U) Light Yellow Lt. Yellow [facility] Glucose, UA Negative [facility] Interpretation and review of laboratory results Abnormal [facility] Ketones, UA Trace [facility] Leukocytes, UA Moderate [facility] Nitrite, UA Negative [facility] pH, UA 6.0 [facility] Protein, UA Trace [facility] Spec Grav, UA 1.015 [facility] Urobilinogen, UA 0.2 [facility] Urinalysis macro (dipstick) panel (U)on 05-17-2022 Bilirubin, UA Negative [facility] Blood, UA Trace [facility] Glucose, UA Negative [facility] Interpretation and review of laboratory results Abnormal [facility] Ketones, UA Negative [facility] Leukocytes, UA Trace [facility] Nitrite, UA Negative [facility] pH, UA 6.5 [facility] Protein, UA Negative [facility] Spec Grav, UA 1.020 [facility] Urobilinogen, UA 0.2 [facility] Urinalysis macro (dipstick) panel (U)on 03-06-2022 Bilirubin, UA Negative [facility] Blood, UA Negative [facility] Glucose, UA Negative [facility] Ketones, UA Negative [facility] Leukocytes, UA Negative [facility] Nitrite, UA Negative [facility] pH, UA 5.0 [facility] Protein, UA Negative [facility] Spec Grav, UA 1.020 [facility] U[facility], UA 0.2 [facility] Basic Metabolic Panelon 11-25 Calcium [Mass/Vol] 9.5 mg/dL Normal 8.4-10.4 [facility] Comment on above: Performed By: #### H EMDF, TSH5, LIPD2, CMP3M #### [facility] [address] [place] [address] Anion gap [Moles/Vol] 7 mmol/L Normal 3-13 [facility] Comment on above: Performed By: #### H EMDF, TSH5, LIPD2, CMP3M #### [facility] [address] [place] [address] CO2 [Moles/Vol] 22 mmol/L Normal 22-30 [facility] Comment on above: Performed By: #### H EMDF, TSH5, LIPD2, CMP3M #### [facility] [address] [place] [address] Creatinine [Mass/Vol] 1.01 mg/dL Normal 0.52-1.25 [facility] Comment on above: Performed By: #### H EMDF, TSH5, LIPD2, CMP3M #### [facility] [address] [place] [address] GFR/1.73 sq M.predicted among blacks MDRD (S/P/Bld) [Vol rate/Area] mL/min/{1.73_m2} Normal >60 [facility] Comment on above: Performed By: #### H EMDF, TSH5, LIPD2, CMP3M #### [facility] [address] [place] [address] GFR/1.73 sq M.predicted among non-blacks MDRD (S/P/Bld) [Vol rate/Area] 80.3 mL/min/{1.73_m2} Normal >60 [facility] Comment on above: Result Comment: KDIG O guidelines provide the following GFR categories: Stage GFR(ml/min/1.73 m2) Terms G1 >=90 Normal or high G2 60-89 Mildly decreased* G3a 45-59 Mildly to moderately decreased G3b 30-44 Moderately to severely decreased G4 15-29 Severely decreased G5 <15 Kidney failure *Relative to young adult level. In the absence of evidence of kidney damage, neither GFR category G1 nor G2 fulfill the criteria for CKD. The CKD-EPI equation is validated in individuals 18 years of age and older. Currently the best equation for estimating glomerular filtration rate (GFR) from serum creatinine in children is the Bedside Graf equation. It is less accurate in patients with extremes of muscle mass, restriction of dietary protein, ingestion of creatine, extra-renal metabolism of creatinine, or treatment with medications that affect renal tubular creatinine secretion. Performed By: #### H EMDKp, TSH5, LIPD2, CMP3M #### [facility] [address] [place] [address] Glucose [Mass/Vol] 101 mg/dL High 70-100 [facility] Comment on above: Performed By: #### H EMDKp TSH5, LIPD2, CMP3M #### [facility] [address] [place] [address] Urea nitrogen [Mass/Vol] 21 mg/dL High 7-17 [facility] Comment on above: Performed By: #### H RONEN TSH5, LIPD2, CMP3M #### [facility] [address] [place] [address] Chloride [Moles/Vol] 107 mmol/L Normal 98-107 [facility] Comment on above: Performed By: #### H EMDKp TSH5, LIPD2, CMP3M #### [facility] [address] [place] [address] Potassium [Moles/Vol] 3.9 mmol/L Normal 3.5-5.1 [facility] Comment on above: Performed By: #### H EMDKp, TSH5, LIPD2, CMP3M #### [facility] [address] [place] [address] Sodium [Moles/Vol] 135 mmol/L Normal 135-145 [facility] Comment on above: Performed By: #### H EMDKp, TSH5, LIPD2, CMP3M #### [facility] [address] [place] [address] Basic Metabolic Panel w/ Ref rolanda to MGon 12-06-2021 Anion gap [Moles/Vol] 7 mmol/L 3 - 13 mmol/L [facility] Work Phone: Calcium [Mass/Vol] 9.5 mg/dL 8.4 - 10. 4 mg/dL [facility] Work Phone: Chloride [Moles/Vol] 107 mmol/L 98 - 10 7 mmol/L [facility] Work Phone: CO2 [Moles/Vol] 22 mmol/L 22 - 30 mmol/L [facility] Work Phone: [phone] Creatinine [Mass/Vol] 1.01 mg/dL 0.52 - 1.25 mg/dL [employer] Work Phone: [phone] eGFR mL/min 60 - P INF mL/min [facility] Work Phone: [phone] EGFR IF NonAfrican [place] 80.3 mL/min 60 - PINF mL/min [facility] Work Phone: [phone] Comment on above: KDIGO guidelines pro vide the following GFR categories: Stage GFR(ml/min/1.73 m2) Terms G1 >=90 Normal or high G2 60-89 Mildly decreased* G3a 45-59 Mildly to moderately decreased G3b 30-44 Moderately to severely decreased G4 15-29 Severely decreased G5 <15 Kidney failure *Relative to young adult level. In the absence of evidence of kidney damage, neither GFR category G1 nor G2 fulfill the criteria for CKD. The CKD-EPI equation is validated in individuals 18 years of age and older. Currently the best equation for estimating glomerular filtration rate (GFR) from serum creatinine in children is the Bedside Graf equation. It is less accurate in patients with extremes of muscle mass, restriction of dietary protein, ingestion of creatine, extra-renal metabolism of creatinine, or treatment with medications that affect renal tubular creatinine secretion. Glucose [Mass/Vol] 101 mg/dL High 70 - 100 mg/dL [facility] Work Phone: [phone] Interpretation and review of laboratory results Abnormal [facility] Work Phone: [phone] Potassium [Moles/Vol] 3.9 mmol/L 3.5 - 5.1 mmol/L [facility] Work Phone: [phone] Sodium [Moles/Vol] 135 mmol/L 135 - 145 mmol/L [facility] Work Phone: [phone] Urea nitrogen (BldV) [Mass/Vol] 21 mg/dL High 7 - 17 mg/dL [facility] Work Phone: [phone] Test Performed by [facility], [address] [place], [place] [address] [facility] Work Phone: [phone] CBC with Auto Differentialon 12-06-2021 Absolute Baso # 0.1 10*3/uL 0 - 0.2 10*3/uL [facility] Work Phone: [phone] Absolute Neut # 4.6 10*3/uL 1.8 - 7 10*3/uL [facility] Work Phone: [phone] Basophils/100 WBC (Bld) 0.9 % 0 - 2 % [facility] Work Phone: [phone] Eosinophils (Bld) [#/Vol] 2.0 10*3/uL High 0 - 0.5 10*3/uL [facility] Work Phone: [phone] Eosinophils/100 WBC (Bld) 19.5 % High 1 - 6 % [facility] Work Phone: [phone] Granulocytes/100 WBC (Bld) 44.0 % 40 - 80 % [facility] Work Phone: [phone] Hematocrit (Bld) [Volume fraction] 47.7 % 40 - 52 % [facility] Work Phone: [phone] Hemoglobin (Bld) [Mass/Vol] 16.3 g/dL 13 - 18 g/dL [facility] Work Phone: [phone] Interpretation and review of laboratory results Abnormal [facility] Work Phone: [phone] Lymphocytes (Bld) [#/Vol] 2.9 10*3/uL 1 - 4.3 10*3/uL [facility] Work Phone: [phone] Lymphocytes/100 WBC (Bld) 28.1 % 20 - 40 % [facility] Work Phone: [phone] MCH (RBC) [Entitic mass] 30.2 pg 26 - 34 pg [facility] Work Phone: [phone] MCHC (RBC) [Mass/Vol] 34.1 % 32 - 36 % [facility] Work Phone: [phone] MCV (RBC) [Entitic vol] 88.4 fL 80 - 98 fL [facility] Work Phone: [phone] Monocytes (Bld) [#/Vol] 0.8 10*3/uL 0 - 0.8 10*3/uL [facility] Work Phone: [phone] Monocytes/100 WBC (Bld) 7.5 % 2 - 10 % [facility] Work Phone: [phone] Platelet distribution width (Bld) [Ratio] 13.6 % 11.5 - 14.5 % [facility] Work Phone: [phone] Platelet mean volume (Bld) [Entitic vol] 7.0 fL Low 7.4 - 12.4 fL [employer] Work Phone: Comment on above: MPV is a calculated measurement using platelet volume ratio. Platelets (Bld) [#/Vol] 275 10*3/uL 140 - 440 10*3/uL [employer] Work Phone: [phone] RBC (Bld) [#/Vol] 5.39 10*6/uL 4.4 - 5.9 10*6/uL [employer] Work Phone: [phone] WBC (Bld) [#/Vol] 10.5 10*3/uL 3.6 - 10.7 10*3/uL [employer] Work Phone: Test Performed by [employer], [address] [place], [place] [id number] [place] [address] [facility] Work Phone: CULTURE BLOODon 12-06-2021 Microscopic examination of blood, culture CULTURE BLOOD --> Status: P No growth at 1 day. No growth at 2 days. No growth at 3 days. No growth at 4 days. No growth at 2 days. No growth at 3 days. No growth at 4 days. Normal [facility] [place] Comment on above: Performed By: #### C UA2 #### [facility] [address] [place] [address] CULTURE BLOOD (Two)on 2021 Microscopic examination of blood, culture CULTURE BLOOD (Two) --> Status: P No growth at 1 day. No growth at 2 days. No growth at 3 days. No growth at 4 days. No growth at 2 days. No growth at 3 days. No growth at 4 days. Normal [facility] [employer] Comment on above: Performed By: #### C UA2 #### [facility] [address] [place] [address] Hemogram w/ Autodiffon 12-06 Abs Baso Cnt 0.1 10*3/uL Normal 0.0-0.2 [facility] Comment on above: Performed By: #### H EMDF, TSH5, LIPD2, CMP3M #### [facility] [address] [place] [address] Abs Neutrophile Cnt 4.6 10*3/uL Normal 1.8-7.0 [facility] Comment on above: Performed By: #### H EMDF, TSH5, LIPD2, CMP3M #### [facility] [address] [place] [address] Basophils/100 WBC (Bld) 0.9 % Normal 0.0-2.0 [facility] Comment on above: Performed By: #### H EMDF, TSH5, LIPD2, CMP3M #### [facility] [address] [place] [address] Eosinophils (Bld) [#/Vol] 2.0 10*3/uL High 0.0-0.5 [facility] Comment on above: Performed By: #### H EMDF, TSH5, LIPD2, CMP3M #### [facility] [address] [place] [address] Eosinophils/100 WBC (Bld) 19.5 % High 1.0-6.0 [facility] Comment on above: Performed By: #### H EMDF, TSH5, LIPD2, CMP3M #### [facility] [address] [place] [address] Erythrocyte distribution width (RBC) [Ratio] 13.6 % Normal 11.5-14.5 [facility] Comment on above: Performed By: #### H EMDF, TSH5, LIPD2, CMP3M #### [facility] [address] [place] [address] Granulocytes/100 WBC (Bld) 44.0 % Normal 40.0-80.0 [facility] Comment on above: Performed By: #### H EMDF, TSH5, LIPD2, CMP3M #### [facility] [address] [place] [address] Hematocrit (Bld) [Volume fraction] 47.7 % Normal 40.0-52.0 [facility] Comment on above: Performed By: #### H EMDF, TSH5, LIPD2, CMP3M #### [facility] [address] [place] [address] Hemoglobin (Bld) [Mass/Vol] 16.3 g/dL Normal 13.0-18.0 [facility] Comment on above: Performed By: #### H EMDF, TSH5, LIPD2, CMP3M #### [facility] [address] [place] [address] Lymphocytes (Bld) [#/Vol] 2.9 10*3/uL Normal 1.0-4.3 [facility] Comment on above: Performed By: #### H EMDF, TSH5, LIPD2, CMP3M #### [facility] [address] [place] [address] Lymphocytes/100 WBC (Bld) 28.1 % Normal 20.0-40.0 [facility] Comment on above: Performed By: #### H EMDF, TSH5, LIPD2, CMP3M #### [facility] [address] [place] [address] MCH (RBC) [Entitic mass] 30.2 pg Normal 26.0-34.0 [facility] Comment on above: Performed By: #### H EMDF, TSH5, LIPD2, CMP3M #### [facility] [address] [place] [address] MCHC 34.1 % Normal 32.0-36.0 [facility] Comment on above: Performed By: #### H EMDF, TSH5, LIPD2, CMP3M #### [facility] [address] [place] [address] MCV (RBC) [Entitic vol] 88.4 fL Normal 80.0-98.0 [facility] Comment on above: Performed By: #### H EMDF, TSH5, LIPD2, CMP3M #### [facility] [address] [place] [address] Monocytes (Bld) [#/Vol] 0.8 10*3/uL Normal 0.0-0.8 [facility] Comment on above: Performed By: #### H EMDF, TSH5, LIPD2, CMP3M #### [facility] [address] [place] [address] Monocytes/100 WBC (Bld) 7.5 % Normal 2.0-10.0 [facility] Comment on above: Performed By: #### H EMDF, TSH5, LIPD2, CMP3M #### [facility] [address] [place] [address] Platelet mean volume (Bld) [Entitic vol] 7.0 fL Low 7.4-12.4 [facility] Comment on above: Result Comment: MPV is a calculated measurement using platelet volume ratio. Performed By: #### H EMDF, TSH5, LIPD2, CMP3M #### [facility] [address] [place] [address] Platelets (Bld) [#/Vol] 275 10*3/uL Normal 140-440 [facility] Comment on above: Performed By: #### H EMDF, TSH5, LIPD2, CMP3M #### [facility] [address] [place] [address] RBC (Bld) [#/Vol] 5.39 10*6/uL Normal 4.40-5.90 [facility] Comment on above: Performed By: #### H EMDF, TSH5, LIPD2, CMP3M #### [facility] [address] [place] [address] WBC (Bld) [#/Vol] 10.5 10*3/uL Normal 3.6-10.7 [facility] Comment on above: Performed By: #### H EMDF, TSH5, LIPD2, CMP3M #### [facility] [address] [place] [address] Basic Metabolic Panelon 11-25 Anion gap [Moles/Vol] 6 mmol/L Normal 3-13 [facility] Comment on above: Performed By: #### M DIFF, HEMDF, BMP3M #### [facility] [address] [place] [address] Calcium [Mass/Vol] 10.2 mg/dL Normal 8.4-10.4 [facility] Comment on above: Performed By: #### M DIFF, HEMDF, BMP3M #### [facility] [address] [place] [address] CO2 [Moles/Vol] 25 mmol/L Normal 22-30 [facility] Comment on above: Performed By: #### M DIFF, HEMDF, BMP3M #### [facility] [address] [place] [address] Glucose [Mass/Vol] 96 mg/dL Normal 70-100 [facility] Comment on above: Performed By: #### M DIFF, HEMDF, BMP3M #### [facility] [address] [place] [address] Urea nitrogen [Mass/Vol] 21 mg/dL High 7-17 [facility] Comment on above: Performed By: #### M DIFF, HEMDF, BMP3M #### [facility] [address] [place] [address] Creatinine [Mass/Vol] 1.26 mg/dL High 0.52-1.25 [facility] Comment on above: Performed By: #### M DIFF, HEMDF, BMP3M #### [facility] [address] [place] [address] GFR/1.73 sq M.predicted among blacks MDRD (S/P/Bld) [Vol rate/Area] 71.3 mL/min/{1.73_m2} Normal >60 [facility] Comment on above: Performed By: #### M DIFF, HEMDF, BMP3M #### [facility] [address] [place] [address] GFR/1.73 sq M.predicted among non-blacks MDRD (S/P/Bld) [Vol rate/Area] 61.5 mL/min/{1.73_m2} Normal >60 [facility] Comment on above: Result Comment: KDIG O guidelines provide the following GFR categories: Stage GFR(ml/min/1.73 m2) Terms G1 >=90 Normal or high G2 60-89 Mildly decreased* G3a 45-59 Mildly to moderately decreased G3b 30-44 Moderately to severely decreased G4 15-29 Severely decreased G5 <15 Kidney failure *Relative to young adult level. In the absence of evidence of kidney damage, neither GFR category G1 nor G2 fulfill the criteria for CKD. The CKD-EPI equation is validated in individuals 18 years of age and older. Currently the best equation for estimating glomerular filtration rate (GFR) from serum creatinine in children is the Bedside Graf equation. It is less accurate in patients with extremes of muscle mass, restriction of dietary protein, ingestion of creatine, extra-renal metabolism of creatinine, or treatment with medications that affect renal tubular creatinine secretion. Performed By: #### M DIFF, HEMDF, BMP3M #### [facility] [address] [place] [address] Potassium [Moles/Vol] 4.3 mmol/L Normal 3.5-5.1 [facility] Comment on above: Performed By: #### M DIFF, HEMDF, BMP3M #### [facility] [address] [place] [address] Chloride [Moles/Vol] 105 mmol/L Normal 98-107 [facility] Comment on above: Performed By: #### M DIFF, HEMDF, BMP3M #### [facility] [address] [place] [address] Sodium [Moles/Vol] 135 mmol/L Normal 135-145 [facility] Comment on above: Performed By: #### M DIFF, HEMDF, BMP3M #### [facility] [address] [place] [address] Basic Metabolic Panel w/ Ref rolanda to MGon 12-05-2021 Anion gap [Moles/Vol] 6 mmol/L 3 - 13 mmol/L [facility] Work Phone: Calcium [Mass/Vol] 10.2 mg/dL 8.4 - 10. 4 mg/dL [facility] Work Phone: [phone] Chloride [Moles/Vol] 105 mmol/L 98 - 10 7 mmol/L [facility] Work Phone: [phone] CO2 [Moles/Vol] 25 mmol/L 22 - 30 mmol/L [facility] Work Phone: Creatinine [Mass/Vol] 1.26 mg/dL High 0.52 - 1.25 mg/dL [facility] Work Phone: [phone] EGFR IF NonAfrican [place] 61.5 mL/min 60 - PINF mL/min [facility] Work Phone: [phone] Comment on above: KDIGO guidelines pro vide the following GFR categories: Stage GFR(ml/min/1.73 m2) Terms G1 >=90 Normal or high G2 60-89 Mildly decreased* G3a 45-59 Mildly to moderately decreased G3b 30-44 Moderately to severely decreased G4 15-29 Severely decreased G5 <15 Kidney failure *Relative to young adult level. In the absence of evidence of kidney damage, neither GFR category G1 nor G2 fulfill the criteria for CKD. The CKD-EPI equation is validated in individuals 18 years of age and older. Currently the best equation for estimating glomerular filtration rate (GFR) from serum creatinine in children is the Bedside Graf equation. It is less accurate in patients with extremes of muscle mass, restriction of dietary protein, ingestion of creatine, extra-renal metabolism of creatinine, or treatment with medications that affect renal tubular creatinine secretion. GFR/1.73 sq M.predicted among blacks MDRD (S/P/Bld) [Vol rate/Area] 71.3 mL/min/{1.73_m2} 60 - PINF mL/min [employer] Work Phone: [phone] Glucose [Mass/Vol] 96 mg/dL 70 - 100 mg/dL [facility] Work Phone: [phone] Interpretation and review of laboratory results Abnormal [facility] Work Phone: [phone] Potassium [Moles/Vol] 4.3 mmol/L 3.5 - 5.1 mmol/L [facility] Work Phone: [phone] Sodium [Moles/Vol] 135 mmol/L 135 - 145 mmol/L [facility] Work Phone: [phone] Urea nitrogen (BldV) [Mass/Vol] 21 mg/dL High 7 - 17 mg/dL [facility] Work Phone: [phone] Test [facility] by [facility], [address] [place] [address] Str. [place], [place] [address] [facility] Work Phone: [phone] CBC with Auto Differentialon 12-05-2021 Hematocrit (Bld) [Volume fraction] 43.8 % 40 - 52 % [facility] Work Phone: [phone] Hemoglobin (Bld) [Mass/Vol] 15.1 g/dL 13 - 18 g/dL [facility] Work Phone: Interpretation and review of laboratory results Abnormal [facility] Work Phone: MCH (RBC) [Entitic mass] 30.7 pg 26 - 34 pg [facility] Work Phone: MCHC (RBC) [Mass/Vol] 34.4 % 32 - 36 % [facility] Work Phone: MCV (RBC) [Entitic vol] 89.1 fL 80 - 98 fL [facility] Work Phone: Platelet distribution width (Bld) [Ratio] 13.7 % 11.5 - 14.5 % [facility] Work Phone: Platelet mean volume (Bld) [Entitic vol] 6.9 fL Low 7.4 - 12.4 fL [facility] Work Phone: Comment on above: MPV is a calculated measurement using platelet volume ratio. Platelets (Bld) [#/Vol] 265 10*3/uL 140 - 440 10*3/uL [facility] Work Phone: RBC (Bld) [#/Vol] 4.91 10*6/uL 4.4 - 5.9 10*6/uL [facility] Work Phone: WBC (Bld) [#/Vol] 10.4 10*3/uL 3.6 - 10.7 10*3/uL [facility] Work Phone: Test Performed by [employer], [address], [place], [place] [address] [facility] Work Phone: Hemogram w/ Autodiffon 12-05 Erythrocyte distribution width (RBC) [Ratio] 13.7 % Normal 11.5-14.5 [facility] [employer] Comment on above: Performed By: #### M DIFF, HEMDF, BMP3M #### [facility] [address] [place] [address] Hematocrit (Bld) [Volume fraction] 43.8 % Normal 40.0-52.0 [facility] Comment on above: Performed By: #### M DIFF, HEMDF, BMP3M #### [facility] [address] [place] [address] Hemoglobin (Bld) [Mass/Vol] 15.1 g/dL Normal 13.0-18.0 [facility] Comment on above: Performed By: #### M DIFF, HEMDF, BMP3M #### [facility] [address] [place] [address] MCH (RBC) [Entitic mass] 30.7 pg Normal 26.0-34.0 [facility] Comment on above: Performed By: #### M DIFF, HEMDF, BMP3M #### [facility] [address] [place] [address] MCHC 34.4 % Normal 32.0-36.0 [facility] Comment on above: Performed By: #### M DIFF, HEMDF, BMP3M #### [facility] [address] [place] [address] MCV (RBC) [Entitic vol] 89.1 fL Normal 80.0-98.0 [facility] Comment on above: Performed By: #### M DIFF, HEMDF, BMP3M #### [facility] [address] [place] [address] Platelet mean volume (Bld) [Entitic vol] 6.9 fL Low 7.4-12.4 [facility] Comment on above: Result Comment: MPV is a calculated measurement using platelet volume ratio. Performed By: #### M DIFF, HEMDF, BMP3M #### [facility] [address] [place] [address] Platelets (Bld) [#/Vol] 265 10*3/uL Normal 140-440 [facility] Comment on above: Performed By: #### M DIFF, HEMDF, BMP3M #### [facility] [address] [place] [address] RBC (Bld) [#/Vol] 4.91 10*6/uL Normal 4.40-5.90 [facility] Comment on above: Performed By: #### M DIFF, HEMDF, BMP3M #### [facility] [address] [place] [address] WBC (Bld) [#/Vol] 10.4 10*3/uL Normal 3.6-10.7 [facility] Comment on above: Performed By: #### M DIFF, HEMDF, BMP3M #### [facility] [address] [place] [address] Manual Diffon 12-05-2021 Abs Eosin Cnt 1.9 10*3/uL High 0.0-0.5 [facility] Comment on above: Performed By: #### C UA2 #### [facility] [address] [place] [address] Abs Lymph Cnt 2.4 10*3/uL Normal 1.1-4.5 [facility] Comment on above: Performed By: #### C UA2 #### [facility] [address] [place] [address] Abs Monocyte Cnt 0.6 10*3/uL Normal 0.2-1.1 [facility] Comment on above: Performed By: #### C UA2 #### [facility] [address] [place] [address] Abs Neutrophile Cnt 5.4 10*3/uL Normal 2.2-8.2 [facility] Comment on above: Performed By: #### C UA2 #### [facility] [address] [place] [address] Anisocytosis Slight Normal [facility] Comment on above: Performed By: #### C UA2 #### [facility] [address] [place] [address] Eosinophils 18 % High 1-6 [facility] Comment on above: Performed By: #### C UA2 #### [facility] [address] [place] [address] Lymphocytes 23 % Normal 20-40 [facility] Comment on above: Performed By: #### C UA2 #### [facility] [address] [place] [address] Metamyelocytes 1 % Abnormal <1 [facility] Comment on above: Performed By: #### C UA2 #### [facility] [address] [place] [address] Monocytes 6 % Normal 2-10 [facility] Comment on above: Performed By: #### C UA2 #### [facility] [address] [place] [address] Ovalocytes Slight Normal [facility] Comment on above: Performed By: #### C UA2 #### [facility] [address] [place] [address] RBC Morphology ABNORMAL Normal [facility] Comment on above: Performed By: #### C UA2 #### [facility] [address] [place] [address] Seg Neutrophils 52 % Normal 40-80 [facility] Comment on above: Performed By: #### C UA2 #### [facility] [address] [place] [address] Tear Drop Forms Slight Normal [facility] Comment on above: Performed By: #### C UA2 #### [facility] [address] [place] [address] Abs Baso Cnt 0.0 10*3/uL Normal 0.0-0.2 [facility] Comment on above: Performed By: #### C UA2 #### [facility] [address] [place] [address] Bands 0 % Normal 0-3 [facility] Comment on above: Performed By: #### C UA2 #### [facility] [address] [place] [address] Basophils 0 % Normal 0-2 [facility] Comment on above: Performed By: #### C UA2 #### [facility] [address] [place] [address] Cells counted 100 Normal [facility] Comment on above: Performed By: #### C UA2 #### [facility] [address] [place] [address] Manual Differentialon 2021 Absolute Baso # 0.0 10*3/uL 0 - 0.2 10*3/uL [facility] Work Phone: Absolute Eos # 1.9 10*3/uL High 0 - 0.5 10*3/uL [facility] Work Phone: 1 22 Absolute Lymph # 2.4 10*3/uL 1.1 - 4.5 10*3/uL [facility] Work Phone: 1 22 Absolute [place] # 0.6 10*3/uL 0.2 - 1.1 10*3/uL [facility] Work Phone: 1 22 Absolute Neut # 5.4 10*3/uL 2.2 - 8.2 10*3/uL [facility] Work Phone: 1 22 Anisocytosis Slight [facility] Work Phone: 1 22 Bands 0 % 0 - 3 % [facility] Work Phone: 1 22 Basophils/100 WBC (Bld) 0 % 0 - 2 % [facility] Work Phone: 1 22 Eosinophils/100 WBC (Bld) 18 % High 1 - 6 % [facility] Work Phone: 1 22 Interpretation and review of laboratory results Abnormal [facility] Work Phone: 1 22 Lymphocytes/100 WBC (Bld) 23 % 20 - 40 % [facility] Work Phone: 1 22 Metamyelocytes 1 % Abnormal NINF - 1 % [facility] Work Phone: 1 22 Monocytes/100 WBC (Bld) 6 % 2 - 10 % [facility] Work Phone: 1 22 Ovalocytes Slight [facility] Work Phone: 1 22 RBC (Bld) [#/Vol] ABNORMAL [facility] Work Phone: 1 22 Seg Neutrophils 52 % 40 - 80 % [facility] Work Phone: 1 22 Tear Drop Cells Slight [facility] Work Phone: 1 22 TOTAL CELLS COUNTED 100 [facility] Work Phone: 1 22 Test Performed by [facility], [address] [place], [place], [place] [address] [facility] Work Phone: 1 22 Basic Metabolic Panelon 10-1 -2021 Anion gap [Moles/Vol] 6 mmol/L Normal 3-13 [facility] Comment on above: Performed By: #### B MP3M, HEMDF #### [facility] [address] [place] [address] Calcium [Mass/Vol] 10.4 mg/dL Normal 8.4-10.4 [facility] Comment on above: Performed By: #### B MP3M, HEMDF #### [facility] [address] [place] [address] CO2 [Moles/Vol] 27 mmol/L Normal 22-30 [facility] Comment on above: Performed By: #### B MP3M, HEMDF #### [facility] [address] [place] [address] Creatinine [Mass/Vol] 1.49 mg/dL High 0.52-1.25 [facility] Comment on above: Performed By: #### B MP3M, HEMDF #### [facility] [address] [place] [address] GFR/1.73 sq M.predicted among blacks MDRD (S/P/Bld) [Vol rate/Area] 58.2 mL/min/{1.73_m2} Abnormal >60 [facility] Comment on above: Performed By: #### B MP3M, HEMDF #### [facility] [address] [place] [address] GFR/1.73 sq M.predicted among non-blacks MDRD (S/P/Bld) [Vol rate/Area] 50.2 mL/min/{1.73_m2} Abnormal >60 [facility] Comment on above: Result Comment: KDIG O guidelines provide the following GFR categories: Stage GFR(ml/min/1.73 m2) Terms G1 >=90 Normal or high G2 60-89 Mildly decreased* G3a 45-59 Mildly to moderately decreased G3b 30-44 Moderately to severely decreased G4 15-29 Severely decreased G5 <15 Kidney failure *Relative to young adult level. In the absence of evidence of kidney damage, neither GFR category G1 nor G2 fulfill the criteria for CKD. The CKD-EPI equation is validated in individuals 18 years of age and older. Currently the best equation for estimating glomerular filtration rate (GFR) from serum creatinine in children is the Bedside Graf equation. It is less accurate in patients with extremes of muscle mass, restriction of dietary protein, ingestion of creatine, extra-renal metabolism of creatinine, or treatment with medications that affect renal tubular creatinine secretion. Performed By: #### B MP3M, HEMDF #### [facility] [address] [place] [address] Glucose [Mass/Vol] 106 mg/dL High 70-100 [facility] Comment on above: Performed By: #### B MP3M, HEMDF #### [facility] [address] [place] [address] Urea nitrogen [Mass/Vol] 22 mg/dL High 7-17 [facility] Comment on above: Performed By: #### B MP3M, HEMDF #### [facility] [address] [place] [address] Chloride [Moles/Vol] 105 mmol/L Normal 98-107 [facility] Comment on above: Performed By: #### B MP3M, HEMDF #### [facility] [address] [place] [address] Potassium [Moles/Vol] 4.9 mmol/L Normal 3.5-5.1 [facility] Comment on above: Performed By: #### B MP3M, HEMDF #### [facility] [address] [place] [address] Sodium [Moles/Vol] 138 mmol/L Normal 135-145 [facility] Comment on above: Performed By: #### B MP3M, HEMDF #### [facility] [address] [place] [address] Basic Metabolic Panel w/ Ref rolanda to MGon 12-04-2021 Anion gap [Moles/Vol] 6 mmol/L 3 - 13 mmol/L [facility] Calcium [Mass/Vol] 10.4 mg/dL 8.4 - 10. 4 mg/dL [facility] Chloride [Moles/Vol] 105 mmol/L 98 - 10 7 mmol/L [facility] CO2 [Moles/Vol] 27 mmol/L 22 - 30 mmol/L [facility] Creatinine [Mass/Vol] 1.49 mg/dL High 0.52 - 1.25 mg/dL [facility] EGFR IF NonAfrican [place] 50.2 mL/min Abnormal 60 - PINF mL/min [facility] Comment on above: KDIGO guidelines pro vide the following GFR categories: Stage GFR(ml/min/1.73 m2) Terms G1 >=90 Normal or high G2 60-89 Mildly decreased* G3a 45-59 Mildly to moderately decreased G3b 30-44 Moderately to severely decreased G4 15-29 Severely decreased G5 <15 Kidney failure *Relative to young adult level. In the absence of evidence of kidney damage, neither GFR category G1 nor G2 fulfill the criteria for CKD. The CKD-EPI equation is validated in individuals 18 years of age and older. Currently the best equation for estimating glomerular filtration rate (GFR) from serum creatinine in children is the Bedside Graf equation. It is less accurate in patients with extremes of muscle mass, restriction of dietary protein, ingestion of creatine, extra-renal metabolism of creatinine, or treatment with medications that affect renal tubular creatinine secretion. GFR/1.73 sq M.predicted among blacks MDRD (S/P/Bld) [Vol rate/Area] 58.2 mL/min/{1.73_m2} Abnormal 60 - PINF mL/min [facility] Glucose [Mass/Vol] 106 mg/dL High 70 - 100 mg/dL [facility] Interpretation and review of laboratory results Abnormal [facility] Potassium [Moles/Vol] 4.9 mmol/L 3.5 - 5.1 mmol/L [facility] Sodium [Moles/Vol] 138 mmol/L 135 - 145 mmol/L [facility] Urea nitrogen (BldV) [Mass/Vol] 22 mg/dL High 7 - 17 mg/dL [facility] Test Performed by [facility] [facility], [address] [place] [address] LAB [facility] CBC with Auto Differentialon 12-04-2021 Absolute Baso # 0.1 10*3/uL 0 - 0.2 10*3/uL [facility] Absolute Neut # 5.0 10*3/uL 1.8 - 7 10*3/uL [facility] Basophils/100 WBC (Bld) 0.6 % 0 - 2 % [facility] Eosinophils (Bld) [#/Vol] 1.5 10*3/uL High 0 - 0.5 10*3/uL [facility] Eosinophils/100 WBC (Bld) 14.6 % High 1 - 6 % [facility] Granulocytes/100 WBC (Bld) 49.8 % 40 - 80 % [facility] Hematocrit (Bld) [Volume fraction] 46.9 % 40 - 52 % [facility] Hemoglobin (Bld) [Mass/Vol] 15.9 g/dL 13 - 18 g/dL [facility] Interpretation and review of laboratory results Abnormal [facility] Lymphocytes (Bld) [#/Vol] 2.9 10*3/uL 1 - 4.3 10*3/uL [facility] Lymphocytes/100 WBC (Bld) 28.4 % 20 - 40 % [facility] MCH (RBC) [Entitic mass] 30.7 pg 26 - 34 pg [facility] MCHC (RBC) [Mass/Vol] 34.0 % 32 - 36 % [facility] MCV (RBC) [Entitic vol] 90.2 fL 80 - 98 fL [facility] Monocytes (Bld) [#/Vol] 0.7 10*3/uL 0 - 0.8 10*3/uL [facility] Monocytes/100 WBC (Bld) 6.6 % 2 - 10 % [facility] Platelet distribution width (Bld) [Ratio] 13.5 % 11.5 - 14.5 % [facility] Platelet mean volume (Bld) [Entitic vol] 7.3 fL Low 7.4 - 12.4 fL [facility] Comment on above: MPV is a calculated measurement using platelet volume ratio. Platelets (Bld) [#/Vol] 268 10*3/uL 140 - 440 10*3/uL [facility] RBC (Bld) [#/Vol] 5.20 10*6/uL 4.4 - 5.9 10*6/uL [facility] WBC (Bld) [#/Vol] 10.1 10*3/uL 3.6 - 10.7 10*3/uL [facility] Test Performed by [facility] [employer], [address] [place], [place] [id number] [place] [address] LAB [facility] Complete Urinalysison 2021 Appearance (U) Clear Normal Clear [facility] Comment on above: Result Comment: . Performed By: #### H EMDF, TSH5, LIPD2, CMP3M #### [employer] [facility] [address] [place] [address] Bilirubin,Urine Negative Normal Negative [facility] Comment on above: Result Comment: . Performed By: #### H EMDF, TSH5, LIPD2, CMP3M #### [facility] [address] [place] [address] Color (U) Light-Yellow Normal Lt. Yellow [facility] Comment on above: Result Comment: . Performed By: #### H EMDF, TSH5, LIPD2, CMP3M #### [facility] [address] [place] [address] Glucose Ql (U) Normal Normal Normal (<70) [facility] Comment on above: Result Comment: . Performed By: #### H EMDF, TSH5, LIPD2, CMP3M #### [facility] [address] [place] [address] Ketone,Urine Negative Normal Negative [facility] Comment on above: Result Comment: . Performed By: #### H EMDF, TSH5, LIPD2, CMP3M #### [facility] [address] [place] [address] Leukocytes,Urine Negative Normal Negative [facility] Comment on above: Result Comment: . Performed By: #### H EMDF, TSH5, LIPD2, CMP3M #### [facility] [address] [place] [address] Nitrites,Urine Negative Normal Negative [facility] Comment on above: Result Comment: . Performed By: #### H EMDF, TSH5, LIPD2, CMP3M #### [facility] [address] [place] [address] Occult Blood,Urine Negative Normal Negative [facility] Comment on above: Result Comment: . Performed By: #### H EMDF, TSH5, LIPD2, CMP3M #### [facility] [address] [place] [address] pH,Urine 7.0 Normal 5.0-8.0 [facility] Comment on above: Result Comment: . Performed By: #### H EMDF, TSH5, LIPD2, CMP3M #### [facility] [address] [place] [address] Specific [place],Urine 1.013 Normal 1.005 - 1.030 [facility] Comment on above: Result Comment: . Performed By: #### H EMDF, TSH5, LIPD2, CMP3M #### [facility] [address] [place] [address] Total Protein,Urine Negative Normal Negative [facility] Comment on above: Result Comment: . Performed By: #### H EMDF, TSH5, LIPD2, CMP3M #### [facility] [address] [place] [address] Urobilinogen,Urine Normal Normal Normal (0-1) [facility] Comment on above: Result Comment: . Performed By: #### H EMDF, TSH5, LIPD2, CMP3M #### [facility] [address] [place] [address] Hemogram w/ Autodiffon 12-04 Abs Baso Cnt 0.1 10*3/uL Normal 0.0-0.2 [facility] Comment on above: Performed By: #### B MP3M, HEMDF #### [facility] [address] [place] [address] Abs Neutrophile Cnt 5.0 10*3/uL Normal 1.8-7.0 [facility] Comment on above: Performed By: #### B MP3M, HEMDF #### [facility] [address] [place] [address] Basophils/100 WBC (Bld) 0.6 % Normal 0.0-2.0 [facility] Comment on above: Performed By: #### B MP3M, HEMDF #### [facility] [address] [place] [address] Eosinophils (Bld) [#/Vol] 1.5 10*3/uL High 0.0-0.5 [facility] Comment on above: Performed By: #### B MP3M, HEMDF #### [facility] [address] [place] [address] Eosinophils/100 WBC (Bld) 14.6 % High 1.0-6.0 [facility] Comment on above: Performed By: #### B MP3M, HEMDF #### [facility] [address] [place] [address] Erythrocyte distribution width (RBC) [Ratio] 13.5 % Normal 11.5-14.5 [facility] Comment on above: Performed By: #### B MP3M, HEMDF #### [facility] [address] [place] [address] Granulocytes/100 WBC (Bld) 49.8 % Normal 40.0-80.0 [facility] Comment on above: Performed By: #### B MP3M, HEMDF #### [facility] [address] [place] [address] Hematocrit (Bld) [Volume fraction] 46.9 % Normal 40.0-52.0 [facility] Comment on above: Performed By: #### B MP3M, HEMDF #### [facility] [address] [place] [address] Hemoglobin (Bld) [Mass/Vol] 15.9 g/dL Normal 13.0-18.0 [facility] Comment on above: Performed By: #### B MP3M, HEMDF #### [facility] [address] [place] [address] Lymphocytes (Bld) [#/Vol] 2.9 10*3/uL Normal 1.0-4.3 [facility] Comment on above: Performed By: #### B MP3M, HEMDF #### [facility] [address] [place] [address] Lymphocytes/100 WBC (Bld) 28.4 % Normal 20.0-40.0 [facility] Comment on above: Performed By: #### B MP3M, HEMDF #### [facility] [address] [place] [address] MCH (RBC) [Entitic mass] 30.7 pg Normal 26.0-34.0 [facility] Comment on above: Performed By: #### B MP3M, HEMDF #### [facility] [address] [place] [address] MCHC 34.0 % Normal 32.0-36.0 [facility] Comment on above: Performed By: #### B MP3M, HEMDF #### [facility] [address] [place] [address] MCV (RBC) [Entitic vol] 90.2 fL Normal 80.0-98.0 [facility] Comment on above: Performed By: #### B MP3M, HEMDF #### [facility] [address] [place] [address] Monocytes (Bld) [#/Vol] 0.7 10*3/uL Normal 0.0-0.8 [facility] Comment on above: Performed By: #### B MP3M, HEMDF #### [facility] [address] [place] [address] Monocytes/100 WBC (Bld) 6.6 % Normal 2.0-10.0 [facility] Comment on above: Performed By: #### B MP3M, HEMDF #### [facility] [address] [place] [address] Platelet mean volume (Bld) [Entitic vol] 7.3 fL Low 7.4-12.4 [facility] Comment on above: Result Comment: MPV is a calculated measurement using platelet volume ratio. Performed By: #### B MP3M, HEMDF #### [facility] [address] [place] [address] Platelets (Bld) [#/Vol] 268 10*3/uL Normal 140-440 [facility] Comment on above: Performed By: #### B MP3M, HEMDF #### [facility] [address] [place] [address] RBC (Bld) [#/Vol] 5.20 10*6/uL Normal 4.40-5.90 [facility] Comment on above: Performed By: #### B MP3M, HEMDF #### [facility] [address] [place] [address] WBC (Bld) [#/Vol] 10.1 10*3/uL Normal 3.6-10.7 [facility] Comment on above: Performed By: #### B MP3M, HEMDF #### [facility] [address] [place] [address] [facility] Patient Name: JAYLEN QUEEN Ultrasound ACCESSION EXAM DATE/TIME PROCEDURE ORDERING PROVIDER [id number] 12/04/2021 10:28 EDT US Retroperitoneal 58BRIDGETT RAMÍREZ [place] CPT code 17589 Reason For Exam (US Retroperitoneal Limited) R flank pain Report US RETROPERITONEAL COMPLETE CLINICAL INDICATION: Right flank pain TECHNIQUE: Complete ultrasound of the genitourinary retroperitoneal structures including color flow imaging and bladder COMPARISON: CT 11/27/2021 FINDINGS: RIGHT KIDNEY: Measures 11.5 x 6.2 x 5.1 cm. Cortical thickness and echotexture appear within normal limits. No obstructive uropathy or nephrolithiasis. LEFT KIDNEY: Measures 11.9 x 6.0 x 4.3 cm. Cortical thickness and echotexture appear within normal limits. No obstructive uropathy or nephrolithiasis. 1.4 x 1.1 cm anechoic cyst lower pole left kidney with mural calcification. 2.1 x 1.5 cm simple cyst mid to upper pole right kidney URINARY BLADDER: Fairly collapsed and not well visualized or evaluated ADDITIONAL FINDINGS: Hepatic steatosis IMPRESSION: 1. No obstructive uropathy or nephrolithiasis. 2. Left-sided renal cysts including slightly complex cyst with punctate calcification lower pole. This is favored to be benign. Consider follow-up ultrasound in one year 3. Hepatic steatosis. Report Dictated on --- Final --- Dictating Physician: MD JUNIOR VLADIMIR Signed Date and Time: 12/04/2021 2:47 pm Signed by: MD JUNIOR VLADIMIR Transcribed Date and Time: 12/04/2021 2:48 MARILUZ E[facility] RAD Tyshawn, Unknown Provider - 12/04/2021 Patient Name: JAYLEN QUEEN Ultrasound ACCESSION EXAM DATE/TIME PROCEDURE ORDERING PROVIDER [id number] 12/04/2021 10:28 EDT US Retroperitoneal Gurwinder OzunaBRIDGETT KAPOOR CPT code 62127 Reason For Exam (US Retroperitoneal Limited) R flank pain Report US RETROPERITONEAL COMPLETE CLINICAL INDICATION: Right flank pain TECHNIQUE: Complete ultrasound of the genitourinary retroperitoneal structures including color flow imaging and bladder COMPARISON: CT 11/27/2021 FINDINGS: RIGHT KIDNEY: Measures 11.5 x 6.2 x 5.1 cm. Cortical thickness and echotexture appear within normal limits. No obstructive uropathy or nephrolithiasis. LEFT KIDNEY: Measures 11.9 x 6.0 x 4.3 cm. Cortical thickness and echotexture appear within normal limits. No obstructive uropathy or nephrolithiasis. 1.4 x 1.1 cm anechoic cyst lower pole left kidney with mural calcification. 2.1 x 1.5 cm simple cyst mid to upper pole right kidney URINARY BLADDER: Fairly collapsed and not well visualized or evaluated ADDITIONAL FINDINGS: Hepatic steatosis IMPRESSION: 1. No obstructive uropathy or nephrolithiasis. 2. Left-sided renal cysts including slightly complex cyst with punctate calcification lower pole. This is favored to be benign. Consider follow-up ultrasound in one year 3. Hepatic steatosis. Report Dictated on --- Final --- Dictating Physician: MD JUNIOR VLADIMIR Signed Date and Time: 12/04/2021 2:47 pm Signed by: MD JUNIOR VLADIMIR Transcribed Date and Time: 12/04/2021 2:48 [facility] Work Phone: Radiology Study observation (narrative) [facility] Work Phone: US RETROPERITONEAL LIMITEDOr dered By: Unknown Result on 12-04-2021 [facility] US Retroperitoneal Limitedon 12-04-2021 US Retroperitoneal Limited Patient Name: JAYLEN QUEEN Ultrasound ACCESSION EXAM DATE/TIME PROCEDURE ORDERING PROVIDER [id number] 12/04/2021 10:28 EDT US Retroperitoneal BRIDGETT BOB CPT code 36250 Reason For Exam (US Retroperitoneal Limited) R flank pain Report US RETROPERITONEAL COMPLETE CLINICAL INDICATION: Right flank pain TECHNIQUE: Complete ultrasound of the genitourinary retroperitoneal structures including color flow imaging and bladder COMPARISON: CT 11/27/2021 FINDINGS: RIGHT KIDNEY: Measures 11.5 x 6.2 x 5.1 cm. Cortical thickness and echotexture appear within normal limits. No obstructive uropathy or nephrolithiasis. LEFT KIDNEY: Measures 11.9 x 6.0 x 4.3 cm. Cortical thickness and echotexture appear within normal limits. No obstructive uropathy or nephrolithiasis. 1.4 x 1.1 cm anechoic cyst lower pole left kidney with mural calcification. 2.1 x 1.5 cm simple cyst mid to upper pole right kidney URINARY BLADDER: Fairly collapsed and not well visualized or evaluated ADDITIONAL FINDINGS: Hepatic steatosis IMPRESSION: 1. No obstructive uropathy or nephrolithiasis. 2. Left-sided renal cysts including slightly complex cyst with punctate calcification lower pole. This is favored to be benign. Consider follow-up ultrasound in one year 3. Hepatic steatosis. Report Dictated on Final Dictating Physician: MD JUNIOR VLADIMIR Signed Date and Time: 12/04/2021 2:47 pm Signed by: MD JUNIOR VLADIMIR Transcribed Date and Time: 12/04/2021 2:48 Normal [facility] UrinalysisOrdered By: Connor Kapoor on 12-04-2021 Appearance (U) Clear Clear NA [facility] Comment on above: . Bilirubin Urine Negative Negative mg/dL [facility] Comment on above: . Color (U) Light-Yellow Lt. Yellow NA [facility] Comment on above: . Glucose, Ur Normal Normal (<70) mg/dL [facility] Comment on above: . Ketones Ql (U) Negative Negative mg/dL [facility] Comment on above: . LEUKOCYTES, UA Negative Negative Irina/uL [facility] Comment on above: . Nitrite, Urine Negative Negative NA [facility] Comment on above: . Occult Blood,Urine Negative Negative mg/dL [facility] Comment on above: . pH (U) 7.0 [pH] [facility] Comment on above: . Specific [place], Urine 1.013 S [facility] Comment on above: . Total Protein, Urine Negative Negativ e mg/dL [facility] Comment on above: . Urobilinogen, Urine Normal Normal (0-1) mg/dL [facility] Comment on above: . [facility] Urinalysison 12-04-2021 Test Performed by [facility], [address] [place], [place] [address] [facility] Basic Metabolic Panelon Calcium [Mass/Vol] 9.7 mg/dL Normal 8.4-10.4 [facility] Comment on above: Performed By: #### H EMDF, TSH5, LIPD2, CMP3M #### [facility] [address] [place] [address] Glucose [Mass/Vol] 96 mg/dL Normal 70-100 [facility] Comment on above: Performed By: #### H EMDF, TSH5, LIPD2, CMP3M #### [facility] [address] [place] [address] Anion gap [Moles/Vol] 7 mmol/L Normal 3-13 [facility] Comment on above: Performed By: #### H EMDF, TSH5, LIPD2, CMP3M #### [facility] [address] [place] [address] CO2 [Moles/Vol] 21 mmol/L Low 22-30 [facility] Comment on above: Performed By: #### H EMDF, TSH5, LIPD2, CMP3M #### [facility] [address] [place] [address] Creatinine [Mass/Vol] 1.22 mg/dL Normal 0.52-1.25 [facility] Comment on above: Performed By: #### H EMDF, TSH5, LIPD2, CMP3M #### [facility] [address] [place] [address] GFR/1.73 sq M.predicted among blacks MDRD (S/P/Bld) [Vol rate/Area] 74.1 mL/min/{1.73_m2} Normal >60 [facility] Comment on above: Performed By: #### H EMDF, TSH5, LIPD2, CMP3M #### [facility] [address] [place] [address] GFR/1.73 sq M.predicted among non-blacks MDRD (S/P/Bld) [Vol rate/Area] 63.9 mL/min/{1.73_m2} Normal >60 [facility] Comment on above: Result Comment: KDIG O guidelines provide the following GFR categories: Stage GFR(ml/min/1.73 m2) Terms G1 >=90 Normal or high G2 60-89 Mildly decreased* G3a 45-59 Mildly to moderately decreased G3b 30-44 Moderately to severely decreased G4 15-29 Severely decreased G5 <15 Kidney failure *Relative to young adult level. In the absence of evidence of kidney damage, neither GFR category G1 nor G2 fulfill the criteria for CKD. The CKD-EPI equation is validated in individuals 18 years of age and older. Currently the best equation for estimating glomerular filtration rate (GFR) from serum creatinine in children is the Bedside Graf equation. It is less accurate in patients with extremes of muscle mass, restriction of dietary protein, ingestion of creatine, extra-renal metabolism of creatinine, or treatment with medications that affect renal tubular creatinine secretion. Performed By: #### H EMDF, TSH5, LIPD2, CMP3M #### [facility] [address] [place] [address] Urea nitrogen [Mass/Vol] 24 mg/dL High 7-17 [facility] Comment on above: Performed By: #### H EMDF, TSH5, LIPD2, CMP3M #### [facility] [address] [place] [address] Chloride [Moles/Vol] 110 mmol/L High 98-107 [facility] Comment on above: Performed By: #### H EMDF, TSH5, LIPD2, CMP3M #### [facility] [address] [place] [address] Potassium [Moles/Vol] 4.2 mmol/L Normal 3.5-5.1 [facility] Comment on above: Performed By: #### H EMDF, TSH5, LIPD2, CMP3M #### [facility] [address] [facility] [place] [address] Sodium [Moles/Vol] 137 mmol/L Normal 135-145 [facility] Comment on above: Performed By: #### H EMDF, TSH5, LIPD2, CMP3M #### [facility] [address] [place] [address] Basic Metabolic Panel w/ Ref rolanda to MGon 12-03-2021 Anion gap [Moles/Vol] 7 mmol/L 3 - 13 mmol/L [facility] Calcium [Mass/Vol] 9.7 mg/dL 8.4 - 10. 4 mg/dL [facility] Chloride [Moles/Vol] 110 mmol/L High 98 - 10 7 mmol/L [facility] CO2 [Moles/Vol] 21 mmol/L Low 22 - 30 mmol/L [facility] Creatinine [Mass/Vol] 1.22 mg/dL 0.52 - 1.25 mg/dL [facility] EGFR IF NonAfrican [place] 63.9 mL/min 60 - PINF mL/min [facility] Comment on above: KDIGO guidelines pro vide the following GFR categories: Stage GFR(ml/min/1.73 m2) Terms G1 >=90 Normal or high G2 60-89 Mildly decreased* G3a 45-59 Mildly to moderately decreased G3b 30-44 Moderately to severely decreased G4 15-29 Severely decreased G5 <15 Kidney failure *Relative to young adult level. In the absence of evidence of kidney damage, neither GFR category G1 nor G2 fulfill the criteria for CKD. The CKD-EPI equation is validated in individuals 18 years of age and older. Currently the best equation for estimating glomerular filtration rate (GFR) from serum creatinine in children is the Bedside Graf equation. It is less accurate in patients with extremes of muscle mass, restriction of dietary protein, ingestion of creatine, extra-renal metabolism of creatinine, or treatment with medications that affect renal tubular creatinine secretion. GFR/1.73 sq M.predicted among blacks MDRD (S/P/Bld) [Vol rate/Area] 74.1 mL/min/{1.73_m2} 60 - PINF mL/min [facility] Glucose [Mass/Vol] 96 mg/dL 70 - 100 mg/dL [facility] Interpretation and review of laboratory results Abnormal [facility] Potassium [Moles/Vol] 4.2 mmol/L 3.5 - 5.1 mmol/L [facility] Sodium [Moles/Vol] 137 mmol/L 135 - 145 mmol/L [facility] Urea nitrogen (BldV) [Mass/Vol] 24 mg/dL High 7 - 17 mg/dL [facility] Test Performed by [facility], [address] [place], [place] [id number] [place] [address] LAB [facility] CBC with Auto Differentialon 12-03-2021 Absolute Baso # 0.0 10*3/uL 0 - 0.2 10*3/uL [facility] Absolute Neut # 3.6 10*3/uL 1.8 - 7 10*3/uL [facility] Basophils/100 WBC (Bld) 0.5 % 0 - 2 % S [facility] Eosinophils (Bld) [#/Vol] 1.3 10*3/uL High 0 - 0.5 10*3/uL [facility] Eosinophils/100 WBC (Bld) 17.0 % High 1 - 6 % [facility] Granulocytes/100 WBC (Bld) 46.8 % 40 - 80 % [facility] Hematocrit (Bld) [Volume fraction] 41.8 % 40 - 52 % [facility] Hemoglobin (Bld) [Mass/Vol] 14.6 g/dL 13 - 18 g/dL [facility] Interpretation and review of laboratory results Abnormal [facility] Lymphocytes (Bld) [#/Vol] 2.3 10*3/uL 1 - 4.3 10*3/uL [facility] Lymphocytes/100 WBC (Bld) 29.5 % 20 - 40 % [facility] MCH (RBC) [Entitic mass] 30.9 pg 26 - 34 pg [facility] MCHC (RBC) [Mass/Vol] 34.8 % 32 - 36 % [facility] MCV (RBC) [Entitic vol] 88.7 fL 80 - 98 fL [facility] Monocytes (Bld) [#/Vol] 0.5 10*3/uL 0 - 0.8 10*3/uL [facility] Monocytes/100 WBC (Bld) 6.2 % 2 - 10 % [facility] Platelet distribution width (Bld) [Ratio] 13.7 % 11.5 - 14.5 % [facility] Platelet mean volume (Bld) [Entitic vol] 7.2 fL Low 7.4 - 12.4 fL [facility] Comment on above: MPV is a calculated measurement using platelet volume ratio. Platelets (Bld) [#/Vol] 228 10*3/uL 140 - 440 10*3/uL [facility] RBC (Bld) [#/Vol] 4.72 10*6/uL 4.4 - 5.9 10*6/uL [facility] WBC (Bld) [#/Vol] 7.8 10*3/uL 3.6 - 10.7 10*3/uL [facility] Test Performed by [facility], [address], [place], [place] [id number] [place] [address] LAB [facility] Hemogram w/ Autodiffon 12-03 Abs Baso Cnt 0.0 10*3/uL Normal 0.0-0.2 [facility] [employer] [facility] Comment on above: Performed By: #### H EMDF, TSH5, LIPD2, CMP3M #### [facility] [address] [place] [address] Abs Neutrophile Cnt 3.6 10*3/uL Normal 1.8-7.0 [facility] Comment on above: Performed By: #### H EMDF, TSH5, LIPD2, CMP3M #### [facility] [address] [place] [address] Basophils/100 WBC (Bld) 0.5 % Normal 0.0-2.0 [facility] Comment on above: Performed By: #### H EMDF, TSH5, LIPD2, CMP3M #### [facility] [address] [place] [address] Eosinophils (Bld) [#/Vol] 1.3 10*3/uL High 0.0-0.5 [facility] Comment on above: Performed By: #### H EMDF, TSH5, LIPD2, CMP3M #### [facility] [address] [place] [address] Eosinophils/100 WBC (Bld) 17.0 % High 1.0-6.0 [facility] Comment on above: Performed By: #### H EMDF, TSH5, LIPD2, CMP3M #### [facility] [address] [place] [address] Erythrocyte distribution width (RBC) [Ratio] 13.7 % Normal 11.5-14.5 [facility] Comment on above: Performed By: #### H EMDF, TSH5, LIPD2, CMP3M #### [facility] [address] [place] [address] Granulocytes/100 WBC (Bld) 46.8 % Normal 40.0-80.0 [facility] Comment on above: Performed By: #### H EMDF, TSH5, LIPD2, CMP3M #### [facility] [address] [place] [address] Hematocrit (Bld) [Volume fraction] 41.8 % Normal 40.0-52.0 [facility] Comment on above: Performed By: #### H EMDF, TSH5, LIPD2, CMP3M #### [facility] [address] [place] [address] Hemoglobin (Bld) [Mass/Vol] 14.6 g/dL Normal 13.0-18.0 [facility] Comment on above: Performed By: #### H EMDF, TSH5, LIPD2, CMP3M #### [facility] [address] [place] [address] Lymphocytes (Bld) [#/Vol] 2.3 10*3/uL Normal 1.0-4.3 [facility] Comment on above: Performed By: #### H EMDF, TSH5, LIPD2, CMP3M #### [facility] [address] [place] [address] Lymphocytes/100 WBC (Bld) 29.5 % Normal 20.0-40.0 [facility] Comment on above: Performed By: #### H EMDF, TSH5, LIPD2, CMP3M #### [facility] [address] [place] [address] MCH (RBC) [Entitic mass] 30.9 pg Normal 26.0-34.0 [facility] Comment on above: Performed By: #### H EMDF, TSH5, LIPD2, CMP3M #### [facility] [address] [place] [address] MCHC 34.8 % Normal 32.0-36.0 [facility] Comment on above: Performed By: #### H EMDF, TSH5, LIPD2, CMP3M #### [facility] [address] [place] [address] MCV (RBC) [Entitic vol] 88.7 fL Normal 80.0-98.0 [facility] Comment on above: Performed By: #### H EMDF, TSH5, LIPD2, CMP3M #### [facility] [address] [place] [address] Monocytes (Bld) [#/Vol] 0.5 10*3/uL Normal 0.0-0.8 [facility] Comment on above: Performed By: #### H EMDF, TSH5, LIPD2, CMP3M #### [facility] [address] [place] [address] Monocytes/100 WBC (Bld) 6.2 % Normal 2.0-10.0 [facility] Comment on above: Performed By: #### H EMDF, TSH5, LIPD2, CMP3M #### [facility] [address] [place] [address] Platelet mean volume (Bld) [Entitic vol] 7.2 fL Low 7.4-12.4 [facility] Comment on above: Result Comment: MPV is a calculated measurement using platelet volume ratio. Performed By: #### H EMDF, TSH5, LIPD2, CMP3M #### [facility] [address] [place] [address] Platelets (Bld) [#/Vol] 228 10*3/uL Normal 140-440 [facility] Comment on above: Performed By: #### H EMDF, TSH5, LIPD2, CMP3M #### [facility] [address] [place] [address] RBC (Bld) [#/Vol] 4.72 10*6/uL Normal 4.40-5.90 [facility] Comment on above: Performed By: #### H EMDF, TSH5, LIPD2, CMP3M #### [facility] [place] [address] [place] [address] WBC (Bld) [#/Vol] 7.8 10*3/uL Normal 3.6-10.7 [facility] Comment on above: Performed By: #### H EMDF, TSH5, LIPD2, CMP3M #### [facility] [place] [facility] [address] [place] [address] CBC with Auto Differentialon 12-02-2021 Absolute Baso # 0.0 10*3/uL 0 - 0.2 10*3/uL [facility] Work Phone: Absolute Neut # 4.6 10*3/uL 1.8 - 7 10*3/uL [employer] Work Phone: Basophils/100 WBC (Bld) 0.4 % 0 - 2 % [facility] Work Phone: Eosinophils (Bld) [#/Vol] 1.4 10*3/uL High 0 - 0.5 10*3/uL [facility] Work Phone: 1 Eosinophils/100 WBC (Bld) 16.2 % High 1 - 6 % [facility] Work Phone: Granulocytes/100 WBC (Bld) 54.3 % 40 - 80 % [facility] Work Phone: Hematocrit (Bld) [Volume fraction] 40.8 % 40 - 52 % [facility] Work Phone: Hemoglobin (Bld) [Mass/Vol] 14.3 g/dL 13 - 18 g/dL [facility] Work Phone: Interpretation and review of laboratory results Abnormal [facility] Work Phone: 1 Lymphocytes (Bld) [#/Vol] 1.8 10*3/uL 1 - 4.3 10*3/uL [facility] Work Phone: 1 Lymphocytes/100 WBC (Bld) 21.5 % 20 - 40 % [facility] Work Phone: MCH (RBC) [Entitic mass] 31.2 pg 26 - 34 pg [facility] Work Phone: MCHC (RBC) [Mass/Vol] 35.0 % 32 - 36 % [facility] Work Phone: MCV (RBC) [Entitic vol] 89.0 fL 80 - 98 fL [facility] Work Phone: Monocytes (Bld) [#/Vol] 0.6 10*3/uL 0 - 0.8 10*3/uL [facility] Work Phone: Monocytes/100 WBC (Bld) 7.6 % 2 - 10 % [facility] Work Phone: Platelet distribution width (Bld) [Ratio] 13.8 % 11.5 - 14.5 % [facility] Work Phone: [phone] Platelet mean volume (Bld) [Entitic vol] 7.1 fL Low 7.4 - 12.4 fL [facility] Work Phone: [phone] Comment on above: MPV is a calculated measurement using platelet volume ratio. Platelets (Bld) [#/Vol] 203 10*3/uL 140 - 440 10*3/uL [facility] Work Phone: [phone] RBC (Bld) [#/Vol] 4.58 10*6/uL 4.4 - 5.9 10*6/uL [facility] Work Phone: [phone] WBC (Bld) [#/Vol] 8.6 10*3/uL 3.6 - 10.7 10*3/uL [facility] Work Phone: [phone] Test Performed by [facility], [address] [place] [address] [facility] Work Phone: [phone] CULTURE URINEon 12-02-2021 CULTURE URINE CULTURE URINE --> Status: F No growth (<1,000 CFU/ml). Normal [facility] Comment on above: Performed By: #### C UA2 #### [facility] [address] [place] [address] Comp Panel with Mg Reflexon 12-02-2021 Bilirubin [Mass/Vol] 0.4 mg/dL Normal 0.2-1.3 [facility] Comment on above: Performed By: #### H EMDF, TSH5, LIPD2, CMP3M #### [facility] [address] [place] [address] ALP [Catalytic activity/Vol] 46 U/L Normal 38-126 [facility] Comment on above: Performed By: #### H EMDF, TSH5, LIPD2, CMP3M #### [facility] [address] [place] [address] ALT [Catalytic activity/Vol] 16 U/L Normal 0-49 [facility] Comment on above: Result Comment: The ALT test is performed by an updated assay method. Please note that the reference intervals have been changed and are now sex specific. Performed By: #### H EMDF, TSH5, LIPD2, CMP3M #### [facility] [address] [place] [address] Anion gap [Moles/Vol] 9 mmol/L Normal 3-13 [facility] Comment on above: Performed By: #### H EMDF, TSH5, LIPD2, CMP3M #### [facility] [address] [place] [address] AST [Catalytic activity/Vol] 24 U/L Normal 15-46 [facility] Comment on above: Performed By: #### H EMDF, TSH5, LIPD2, CMP3M #### [facility] [address] [place] [address] Calcium [Mass/Vol] 9.7 mg/dL Normal 8.4-10.4 [facility] Comment on above: Performed By: #### H EMDF, TSH5, LIPD2, CMP3M #### [facility] [address] [place] [address] CO2 [Moles/Vol] 18 mmol/L Low 22-30 [facility] Comment on above: Performed By: #### H EMDF, TSH5, LIPD2, CMP3M #### [facility] [address] [place] [address] Creatinine [Mass/Vol] 1.49 mg/dL High 0.52-1.25 [facility] Comment on above: Performed By: #### H EMDF, TSH5, LIPD2, CMP3M #### [facility] [address] [place] [address] GFR/1.73 sq M.predicted among blacks MDRD (S/P/Bld) [Vol rate/Area] 58.2 mL/min/{1.73_m2} Abnormal >60 [facility] Comment on above: Performed By: #### H EMDF, TSH5, LIPD2, CMP3M #### [facility] [address] [place] [address] GFR/1.73 sq M.predicted among non-blacks MDRD (S/P/Bld) [Vol rate/Area] 50.2 mL/min/{1.73_m2} Abnormal >60 [facility] Comment on above: Result Comment: KDIG O guidelines provide the following GFR categories: Stage GFR(ml/min/1.73 m2) Terms G1 >=90 Normal or high G2 60-89 Mildly decreased* G3a 45-59 Mildly to moderately decreased G3b 30-44 Moderately to severely decreased G4 15-29 Severely decreased G5 <15 Kidney failure *Relative to young adult level. In the absence of evidence of kidney damage, neither GFR category G1 nor G2 fulfill the criteria for CKD. The CKD-EPI equation is validated in individuals 18 years of age and older. Currently the best equation for estimating glomerular filtration rate (GFR) from serum creatinine in children is the Bedside Graf equation. It is less accurate in patients with extremes of muscle mass, restriction of dietary protein, ingestion of creatine, extra-renal metabolism of creatinine, or treatment with medications that affect renal tubular creatinine secretion. Performed By: #### H EMDF, TSH5, LIPD2, CMP3M #### [facility] [address] [place] [address] Glucose [Mass/Vol] 99 mg/dL Normal 70-100 [facility] Comment on above: Performed By: #### H EMDF, TSH5, LIPD2, CMP3M #### [facility] [address] [place] [address] Protein [Mass/Vol] 6.7 g/dL Normal 6.3-8.2 [facility] Comment on above: Performed By: #### H EMDF, TSH5, LIPD2, CMP3M #### [facility] [address] [place] [address] Urea nitrogen [Mass/Vol] 29 mg/dL High 7-17 [facility] Comment on above: Performed By: #### H EMDF, TSH5, LIPD2, CMP3M #### [facility] [address] [place] [address] Potassium [Moles/Vol] 3.7 mmol/L Normal 3.5-5.1 [facility] Comment on above: Performed By: #### H EMDF, TSH5, LIPD2, CMP3M #### [facility] [address] [place] [address] Albumin [Mass/Vol] 3.7 g/dL Normal 3.5-5.0 [facility] Comment on above: Performed By: #### H EMDF, TSH5, LIPD2, CMP3M #### [facility] [address] [place] [address] Chloride [Moles/Vol] 107 mmol/L Normal 98-107 [facility] Comment on above: Performed By: #### H EMDF, TSH5, LIPD2, CMP3M #### [facility] [address] [place] [address] Sodium [Moles/Vol] 134 mmol/L Low 135-145 [facility] Comment on above: Performed By: #### H EMDF, TSH5, LIPD2, CMP3M #### [facility] [address] [place] [address] Comprehensive Metabolic Pane l w/ Reflex to MGon 12-02-2021 Albumin [Mass/Vol] 3.7 g/dL 3.5 - 5 g/dL [employer] Work Phone: [phone] ALP (Bld) [Catalytic activity/Vol] 46 U/L 38 - 126 U/L [employer] Work Phone: [phone] ALT [Catalytic activity/Vol] 16 U/L 0 - 49 U/L [employer] Work Phone: [phone] Comment on above: The ALT test is perf ormed by an updated assay method. Please note that the reference intervals have been changed and are now sex specific. Anion gap [Moles/Vol] 9 mmol/L 3 - 13 mmol/L [employer] Work Phone: [phone] AST [Catalytic activity/Vol] 24 U/L 15 - 46 U/L [employer] Work Phone: [phone] Bilirubin [Mass/Vol] 0.4 mg/dL 0.2 - 1 .3 mg/dL [employer] Work Phone: [phone] Calcium [Mass/Vol] 9.7 mg/dL 8.4 - 10. 4 mg/dL [facility] Work Phone: [phone] Chloride [Moles/Vol] 107 mmol/L 98 - 10 7 mmol/L [employer] Work Phone: CO2 [Moles/Vol] 18 mmol/L Low 22 - 30 mmol/L [employer] Work Phone: [phone] Creatinine [Mass/Vol] 1.49 mg/dL High 0.52 - 1.25 mg/dL [employer] Work Phone: [phone] EGFR IF NonAfrican [place]ij[place] 50.2 mL/min Abnormal 60 - PINF mL/min [employer] Work Phone: Comment on above: KDIGO guidelines pro vide the following GFR categories: Stage GFR(ml/min/1.73 m2) Terms G1 >=90 Normal or high G2 60-89 Mildly decreased* G3a 45-59 Mildly to moderately decreased G3b 30-44 Moderately to severely decreased G4 15-29 Severely decreased G5 <15 Kidney failure *Relative to young adult level. In the absence of evidence of kidney damage, neither GFR category G1 nor G2 fulfill the criteria for CKD. The CKD-EPI equation is validated in individuals 18 years of age and older. Currently the best equation for estimating glomerular filtration rate (GFR) from serum creatinine in children is the Bedside Graf equation. It is less accurate in patients with extremes of muscle mass, restriction of dietary protein, ingestion of creatine, extra-renal metabolism of creatinine, or treatment with medications that affect renal tubular creatinine secretion. GFR/1.73 sq M.predicted among blacks MDRD (S/P/Bld) [Vol rate/Area] 58.2 mL/min/{1.73_m2} Abnormal 60 - PINF mL/min [facility] Work Phone: [phone] Glucose [Mass/Vol] 99 mg/dL 70 - 100 mg/dL [facility] Work Phone: Potassium [Moles/Vol] 3.7 mmol/L 3.5 - 5.1 mmol/L [facility] Work Phone: [phone] Protein [Mass/Vol] 6.7 g/dL 6.3 - 8.2 g/dL [facility] Work Phone: Sodium [Moles/Vol] 134 mmol/L Low 135 - 145 mmol/L [facility] Work Phone: Urea nitrogen (BldV) [Mass/Vol] 29 mg/dL High 7 - 17 mg/dL [facility] Work Phone: Culture, Urineon 12-02-2021 Bacteria identified Cx Nom (U) No growth (<1,000 CFU/ml). [facility] Test Performed by [facility], [address] [place] [id number] [facility] Hemogram w/ Autodiffon 12-02 Abs Baso Cnt 0.0 10*3/uL Normal 0.0-0.2 [facility] Comment on above: Performed By: #### H EMDF, TSH5, LIPD2, CMP3M #### [facility] [address] [place] [address] Abs Neutrophile Cnt 4.6 10*3/uL Normal 1.8-7.0 [facility] Comment on above: Performed By: #### H EMDF, TSH5, LIPD2, CMP3M #### [facility] [address] [place] [address] Basophils/100 WBC (Bld) 0.4 % Normal 0.0-2.0 [facility] Comment on above: Performed By: #### H EMDF, TSH5, LIPD2, CMP3M #### [facility] [address] [place] [address] Eosinophils (Bld) [#/Vol] 1.4 10*3/uL High 0.0-0.5 [facility] Comment on above: Performed By: #### H EMDF, TSH5, LIPD2, CMP3M #### [facility] [address] [place] [address] Eosinophils/100 WBC (Bld) 16.2 % High 1.0-6.0 [facility] Comment on above: Performed By: #### H EMDF, TSH5, LIPD2, CMP3M #### [facility] [address] [place] [address] Erythrocyte distribution width (RBC) [Ratio] 13.8 % Normal 11.5-14.5 [facility] Comment on above: Performed By: #### H EMDF, TSH5, LIPD2, CMP3M #### [facility] [address] [place] [address] Granulocytes/100 WBC (Bld) 54.3 % Normal 40.0-80.0 [facility] Comment on above: Performed By: #### H EMDF, TSH5, LIPD2, CMP3M #### [facility] [address] [place] [address] Hematocrit (Bld) [Volume fraction] 40.8 % Normal 40.0-52.0 [facility] Comment on above: Performed By: #### H EMDF, TSH5, LIPD2, CMP3M #### [facility] [address] [place] [address] Hemoglobin (Bld) [Mass/Vol] 14.3 g/dL Normal 13.0-18.0 [facility] Comment on above: Performed By: #### H EMDF, TSH5, LIPD2, CMP3M #### [facility] [address] [place] [address] Lymphocytes (Bld) [#/Vol] 1.8 10*3/uL Normal 1.0-4.3 [facility] Comment on above: Performed By: #### H EMDF, TSH5, LIPD2, CMP3M #### [facility] [address] [place] [address] Lymphocytes/100 WBC (Bld) 21.5 % Normal 20.0-40.0 [facility] Comment on above: Performed By: #### H EMDF, TSH5, LIPD2, CMP3M #### [facility] [address] [place] [address] MCH (RBC) [Entitic mass] 31.2 pg Normal 26.0-34.0 [facility] Comment on above: Performed By: #### H EMDF, TSH5, LIPD2, CMP3M #### [facility] [address] [place] [address] MCHC 35.0 % Normal 32.0-36.0 [facility] Comment on above: Performed By: #### H EMDF, TSH5, LIPD2, CMP3M #### [facility] [address] [place] [address] MCV (RBC) [Entitic vol] 89.0 fL Normal 80.0-98.0 [facility] Comment on above: Performed By: #### H EMDF, TSH5, LIPD2, CMP3M #### [facility] [address] [place] [address] Monocytes (Bld) [#/Vol] 0.6 10*3/uL Normal 0.0-0.8 [facility] Comment on above: Performed By: #### H EMDF, TSH5, LIPD2, CMP3M #### [facility] [address] [place] [address] Monocytes/100 WBC (Bld) 7.6 % Normal 2.0-10.0 [facility] Comment on above: Performed By: #### H EMDF, TSH5, LIPD2, CMP3M #### [facility] [address] [place] [address] Platelet mean volume (Bld) [Entitic vol] 7.1 fL Low 7.4-12.4 [facility] Comment on above: Result Comment: MPV is a calculated measurement using platelet volume ratio. Performed By: #### H EMDF, TSH5, LIPD2, CMP3M #### [facility] [address] [place] [address] Platelets (Bld) [#/Vol] 203 10*3/uL Normal 140-440 [facility] Comment on above: Performed By: #### H EMDF, TSH5, LIPD2, CMP3M #### [facility] [address] [place] [address] RBC (Bld) [#/Vol] 4.58 10*6/uL Normal 4.40-5.90 [facility] Comment on above: Performed By: #### H EMDF, TSH5, LIPD2, CMP3M #### [facility] [address] [place] [address] WBC (Bld) [#/Vol] 8.6 10*3/uL Normal 3.6-10.7 [facility] Comment on above: Performed By: #### H EMDF, TSH5, LIPD2, CMP3M #### [facility] [address] [place] [address] Lipid Panelon 12-02-2021 Low Density Lipoprotein 54 mg/dL Normal <100 [facility] Comment on above: Performed By: #### H EMDF, TSH5, LIPD2, CMP3M #### [facility] [address] [place] [address] Triglyceride [Mass/Vol] 187 mg/dL Abnormal <150 [facility] Comment on above: Performed By: #### H EMDF, TSH5, LIPD2, CMP3M #### [facility] [address] [place] [address] Chol/HDL 5 Normal [facility] Comment on above: Result Comment: Ref Range: < 3 Low Risk for CHD 3-6 Mod Risk for CHD > 6 High Risk for CHD Performed By: #### H EMDF, TSH5, LIPD2, CMP3M #### [facility] [address] [place] [address] Cholesterol in HDL [Mass/Vol] 21 mg/dL Low 40-60 [facility] Comment on above: Performed By: #### H EMDF, TSH5, LIPD2, CMP3M #### [facility] [address] [place] [address] Cholesterol [Mass/Vol] 112 mg/dL Normal < 200 [facility] Comment on above: Performed By: #### H EMDF, TSH5, LIPD2, CMP3M #### [facility] [address] [place] [address] Cholesterol [Mass/Vol] 112 mg/dL NINF - 200 mg/dL [employer] Work Phone: Cholesterol in HDL [Mass/Vol] 21 mg/dL Low 40 - 60 mg/dL [facility] Work Phone: Cholesterol in LDL [Mass/Vol] 54 mg/dL NINF - 100 mg/dL [facility] Work Phone: Cholesterol.total/Cholest betina in HDL [Mass ratio] 5 {ratio} [facility] Work Phone: Comment on above: Ref Range: < 3 Low Risk for CHD 3-6 Mod Risk for CHD > 6 High Risk for CHD Triglyceride [Mass/Vol] 187 mg/dL Abnormal NINF - 150 mg/dL [facility] Work Phone: No Panel Informationon 12-02 Interpretation and review of laboratory results Abnormal [facility] Work Phone: Test Performed by [facility], [address] [place] [address] [facility] Work Phone: TSHon 12-02-2021 TSH Qn 2.706 u[IU]/mL 0.465 - 4.68 u[IU]/mL [facility] Work Phone: Test Performed by [facility], [address] [place] [address] [facility] Work Phone: Thyroid Stim. Hormoneon 10-0 -2021 Thyroid Stim. Hormone 2.706 u[IU]/mL Normal 0.465-4.68 0 [facility] Comment on above: Performed By: #### H EMDF, TSH5, LIPD2, CMP3M #### [facility] [address] [place] [address] Basic Metabolic Panelon 10-0 -2021 Calcium [Mass/Vol] 10.7 mg/dL High 8.4-10.4 [facility] Comment on above: Performed By: #### H EMDF, TSH5, LIPD2, CMP3M #### [facility] [address] [place] [address] Glucose [Mass/Vol] 122 mg/dL High 70-100 [facility] Comment on above: Performed By: #### H EMDF, TSH5, LIPD2, CMP3M #### [facility] [address] [place] [address] Anion gap [Moles/Vol] 9 mmol/L Normal 3-13 [facility] Comment on above: Performed By: #### H EMDF, TSH5, LIPD2, CMP3M #### [facility] [address] [place] [address] CO2 [Moles/Vol] 21 mmol/L Low 22-30 [facility] Comment on above: Performed By: #### H EMDF, TSH5, LIPD2, CMP3M #### [facility] [address] [place] [address] Creatinine [Mass/Vol] 1.34 mg/dL High 0.52-1.25 [facility] Comment on above: Performed By: #### H EMDF, TSH5, LIPD2, CMP3M #### [facility] [address] [place] [address] GFR/1.73 sq M.predicted among blacks MDRD (S/P/Bld) [Vol rate/Area] 66.2 mL/min/{1.73_m2} Normal >60 [facility] Comment on above: Performed By: #### H EMDF, TSH5, LIPD2, CMP3M #### [facility] [address] [place] [address] GFR/1.73 sq M.predicted among non-blacks MDRD (S/P/Bld) [Vol rate/Area] 57.1 mL/min/{1.73_m2} Abnormal >60 [facility] Comment on above: Result Comment: KDIG O guidelines provide the following GFR categories: Stage GFR(ml/min/1.73 m2) Terms G1 >=90 Normal or high G2 60-89 Mildly decreased* G3a 45-59 Mildly to moderately decreased G3b 30-44 Moderately to severely decreased G4 15-29 Severely decreased G5 <15 Kidney failure *Relative to young adult level. In the absence of evidence of kidney damage, neither GFR category G1 nor G2 fulfill the criteria for CKD. The CKD-EPI equation is validated in individuals 18 years of age and older. Currently the best equation for estimating glomerular filtration rate (GFR) from serum creatinine in children is the Bedside Graf equation. It is less accurate in patients with extremes of muscle mass, restriction of dietary protein, ingestion of creatine, extra-renal metabolism of creatinine, or treatment with medications that affect renal tubular creatinine secretion. Performed By: #### H EMDF, TSH5, LIPD2, CMP3M #### [facility] [address] [place] [address] Urea nitrogen [Mass/Vol] 18 mg/dL High 7-17 [facility] Comment on above: Performed By: #### H EMDF, TSH5, LIPD2, CMP3M #### [facility] [address] [place] [address] Potassium [Moles/Vol] 4.0 mmol/L Normal 3.5-5.1 [facility] Comment on above: Performed By: #### H EMDF, TSH5, LIPD2, CMP3M #### [facility] [address] [place] [address] Sodium [Moles/Vol] 133 mmol/L Low 135-145 [facility] Comment on above: Performed By: #### H EMDF, TSH5, LIPD2, CMP3M #### [facility] [address] [place] [address] Chloride [Moles/Vol] 103 mmol/L Normal 98-107 [facility] Comment on above: Performed By: #### H EMDF, TSH5, LIPD2, CMP3M #### [facility] [address] [place] [address] Anion gap [Moles/Vol] 9 mmol/L 3 - 13 mmol/L [facility] Calcium [Mass/Vol] 10.7 mg/dL High 8.4 - 10. 4 mg/dL [facility] Chloride [Moles/Vol] 103 mmol/L 98 - 10 7 mmol/L [facility] CO2 [Moles/Vol] 21 mmol/L Low 22 - 30 mmol/L [facility] Creatinine [Mass/Vol] 1.34 mg/dL High 0.52 - 1.25 mg/dL [facility] EGFR IF NonAfrican [place] 57.1 mL/min Abnormal 60 - PINF mL/min [facility] Comment on above: KDIGO guidelines pro vide the following GFR categories: Stage GFR(ml/min/1.73 m2) Terms G1 >=90 Normal or high G2 60-89 Mildly decreased* G3a 45-59 Mildly to moderately decreased G3b 30-44 Moderately to severely decreased G4 15-29 Severely decreased G5 <15 Kidney failure *Relative to young adult level. In the absence of evidence of kidney damage, neither GFR category G1 nor G2 fulfill the criteria for CKD. The CKD-EPI equation is validated in individuals 18 years of age and older. Currently the best equation for estimating glomerular filtration rate (GFR) from serum creatinine in children is the Bedside Graf equation. It is less accurate in patients with extremes of muscle mass, restriction of dietary protein, ingestion of creatine, extra-renal metabolism of creatinine, or treatment with medications that affect renal tubular creatinine secretion. GFR/1.73 sq M.predicted among blacks MDRD (S/P/Bld) [Vol rate/Area] 66.2 mL/min/{1.73_m2} 60 - PINF mL/min [facility] Glucose [Mass/Vol] 122 mg/dL High 70 - 100 mg/dL [facility] Interpretation and review of laboratory results Abnormal [facility] Potassium [Moles/Vol] 4.0 mmol/L 3.5 - 5.1 mmol/L [facility] Sodium [Moles/Vol] 133 mmol/L Low 135 - 145 mmol/L [facility] Urea nitrogen (BldV) [Mass/Vol] 18 mg/dL High 7 - 17 mg/dL [facility] CBC with Auto Differentialon 12-01-2021 Absolute Baso # 0.0 10*3/uL 0 - 0.2 10*3/uL [facility] Absolute Neut # 13.8 10*3/uL High 1.8 - 7 10*3/uL [facility] Basophils/100 WBC (Bld) 0.2 % 0 - 2 % [facility] Eosinophils (Bld) [#/Vol] 0.9 10*3/uL High 0 - 0.5 10*3/uL [facility] Eosinophils/100 WBC (Bld) 5.7 % 1 - 6 % [facility] Granulocytes/100 WBC (Bld) 85.2 % High 40 - 80 % [facility] Hematocrit (Bld) [Volume fraction] 45.8 % 40 - 52 % [facility] Hemoglobin (Bld) [Mass/Vol] 15.8 g/dL 13 - 18 g/dL [facility] Interpretation and review of laboratory results Abnormal [facility] Lymphocytes (Bld) [#/Vol] 0.8 10*3/uL Low 1 - 4.3 10*3/uL [facility] Lymphocytes/100 WBC (Bld) 4.8 % Low 20 - 40 % [facility] MCH (RBC) [Entitic mass] 30.5 pg 26 - 34 pg [facility] MCHC (RBC) [Mass/Vol] 34.5 % 32 - 36 % [facility] MCV (RBC) [Entitic vol] 88.5 fL 80 - 98 fL [facility] Monocytes (Bld) [#/Vol] 0.7 10*3/uL 0 - 0.8 10*3/uL [facility] Monocytes/100 WBC (Bld) 4.1 % 2 - 10 % [facility] Platelet distribution width (Bld) [Ratio] 13.6 % 11.5 - 14.5 % [facility] Platelet mean volume (Bld) [Entitic vol] 7.7 fL 7.4 - 12.4 fL [facility] Comment on above: MPV is a calculated measurement using platelet volume ratio. Platelets (Bld) [#/Vol] 255 10*3/uL 140 - 440 10*3/uL [facility] RBC (Bld) [#/Vol] 5.18 10*6/uL 4.4 - 5.9 10*6/uL [facility] WBC (Bld) [#/Vol] 16.3 10*3/uL High 3.6 - 10.7 10*3/uL [facility] Test Performed by [facility], [address] [place], [place] [address] [facility] CR Chest Portableon 12-02-19 CR Chest Portable Patient Name: JAYLEN QUEEN Diagnostic Radiology ACCESSION EXAM DATE/TIME PROCEDURE ORDERING PROVIDER [id number] 12/01/2021 12:48 EDT CR Chest Portable [id number] -TEMI LYNNE CPT code 02909 Reason For Exam (CR Chest Portable) sob Report PORTABLE CHEST (Frontal View) History: Dyspnea for 2 weeks Comparison: 08/03/2018 Findings: Frontal portable chest view shows crowded lung markings in the bases with interstitial prominence of both lungs without acute infiltrate or congestion. The heart is normal in size. There are atherosclerotic calcifications. There is no mediastinal widening or pleural effusion. There is spondylosis. IMPRESSION: Interstitial prominence of the lungs. No acute infiltrate. Follow-up suggested if clinically warranted. Report Dictated on Final Dictating Physician: MD MILLER AHMAD Signed Date and Time: 12/01/2021 1:58 pm Signed by: MD MILLER AHMAD Transcribed Date and Time: 12/01/2021 2:32 Normal [facility] Complete Urinalysison 2021 Appearance (U) Clear Normal Clear [facility] Comment on above: Result Comment: . Performed By: #### C UA2 #### [facility] [address] [place] [address] Bilirubin,Urine Negative Normal Negative [facility] Comment on above: Result Comment: . Performed By: #### C UA2 #### [facility] [address] [place] [address] Color (U) Yellow Normal Lt. Yellow [facility] Comment on above: Result Comment: . Performed By: #### C UA2 #### [facility] [address] [place] [address] Glucose Ql (U) Normal Normal Normal (<70) [facility] Comment on above: Result Comment: . Performed By: #### C UA2 #### [facility] [address] [place] [address] Ketone,Urine Negative Normal Negative [facility] Comment on above: Result Comment: . Performed By: #### C UA2 #### [facility] [address] [place] [address] Leukocytes,Urine Negative Normal Negative [facility] Comment on above: Result Comment: . Performed By: #### C UA2 #### [facility] [address] [place] [address] Nitrites,Urine Negative Normal Negative [facility] Comment on above: Result Comment: . Performed By: #### C UA2 #### [facility] [address] [place] [address] Occult Blood,Urine Negative Normal Negative [facility] Comment on above: Result Comment: . Performed By: #### C UA2 #### [facility] [address] [place] [address] pH,Urine 6.0 Normal 5.0-8.0 [facility] Comment on above: Result Comment: . Performed By: #### C UA2 #### [facility] [address] [place] [address] Specific [place],Urine 1.015 Normal 1.005 - 1.030 [facility] Comment on above: Result Comment: . Performed By: #### C UA2 #### [facility] [address] [place] [address] Total Protein,Urine Negative Normal Negative [facility] Comment on above: Result Comment: . Performed By: #### C UA2 #### [facility] [address] [place] [address] Urobilinogen,Urine Normal Normal Normal (0-1) [facility] Comment on above: Result Comment: . Performed By: #### C UA2 #### [place] [address] [place] [address] ECHO Complete 2D W Doppler W Coloron 12-01-2021 TRANSTHORACIC ECHOCARDIOGRAM PATIENT: Jaylen Queen STUDY DATE: 12/01/2021 : 1960 AGE: 61 HT/WT: 182.9 cm (72 107.1 kg in) (235.5 lb) GENDER: M BP: 85 / 56 LOCATION: [facility] PATIENT Inpatient [facility] STATUS: *ORDERING PHYSICIAN: * Temi Lynne *READING PHYSICIAN: * Alyssa Ag MD *HEAD START COORDINATOR: * Mari Parry -------- INDICATIONS: Chest pain. -------- CONCLUSIONS SUMMARY: 1. Left ventricle: Systolic function is normal. The estimated ejection fraction is 69%. 2. Right ventricle: The cavity size is normal. Systolic function is normal. Right ventricular systolic pressure is within the normal range. 3. No significant valve disease. -------- STUDY DATA: Complete transthoracic echocardiogram. Procedure: Image quality was adequate. M-mode, complete 2D, complete spectral Doppler, and color flow Doppler images were acquired and archived for permanent storage and are available for subsequent review. Study status: Routine. Patient status: Inpatient. ECG RHYTHM: NSR -------- FINDINGS LEFT VENTRICLE: The cavity size is normal. Wall thickness is normal. Systolic function is normal. The estimated ejection fraction is 69%. There are no regional wall motion abnormalities. Left ventricular diastolic function parameters are normal for the patient's age. RIGHT VENTRICLE: The cavity size is normal. Systolic function is normal. Right ventricular systolic pressure is within the normal range. VENTRICULAR SEPTUM: There is no evidence of a ventricular septal defect. LEFT ATRIUM: The atrium is normal in size. RIGHT ATRIUM: The atrium is normal in size. ATRIAL SEPTUM: Color Doppler shows no shunt. MITRAL VALVE: Structurally normal valve. Doppler: There is no regurgitation. AORTIC VALVE: Trileaflet; mildly calcified leaflets. Doppler: There is no stenosis. There is no regurgitation. The peak systolic gradient is 4 mm Hg. The peak systolic velocity is 1 m/sec. TRICUSPID VALVE: Structurally normal valve. Doppler: There is trivial, less than 1+ regurgitation. PULMONIC VALVE: Structurally normal valve. Doppler: There is trivial, less than 1+ regurgitation. AORTA: The aorta is normal. PULMONARY ARTERY: Main pulmonary artery: Normal. PERICARDIUM: There is no pericardial effusion. SYSTEMIC VEINS: Inferior vena cava: The vessel is not well visualized. -------- Measurements Value Reference Aortic root ID, ED (sinus) 3.9 cm <4.4 Value Reference Ascending aorta ID, A-P, S 3.3 cm Ascending aorta ID/bsa, A-P, S 1.4 cm/m^2 Left ventricle Value Reference LV ID, ED 4.7 cm 4.2 - 5.8 LV ID, ES 2.8 cm 2.5 - 4.0 LV ID/bsa, ED (L) 2.0 cm/m^2 2.2 - 3.0 LV ID/bsa, ES (L) 1.2 cm/m^2 1.3 - 2.1 LV PW thickness, ED 0.9 cm 0.6 - 1.0 LV PW/LV ID ratio, ED 0.2 LV wall mass 165 g 96 - 200 LV wall mass/bsa 70 g/m^2 50 - 102 Stroke volume/bsa, 1-p A2C 15.5 ml/m^2 LV end-diastolic volume, 1-p A4C 76 ml 69 - 185 LV end-systolic volume, 1-p A4C (L) 19 ml 22 - 78 LV end-diastolic volume, 2-p 69 ml 62 - 150 LV end-systolic volume, 2-p 22 ml 21 - 61 LV ejection fraction, 2-p 69 % 52 - 72 LV E/e', lateral 7.3 LV E/e', medial 9.1 LV E/e', average 8.1 Ventricular septum Value Reference IVS thickness, ED (H) 1.1 cm 0.6 - 1.0 LVOT Value Reference LVOT ID, A-P 2.2 cm LVOT mean velocity, S 0.6 m/sec LVOT peak gradient, S 4 mm Hg Stroke volume (SV), LVOT DP 70 ml Stroke index (SV/bsa), LVOT DP 30 ml/m^2 Aortic valve (more content not included)... [facility] Alyssa Ag MD - 12/01/2021 TRANSTHORACIC ECHOCARDIOGRAM PATIENT: Jaylen Queen STUDY DATE: 12/01/2021 : 1960 AGE: 61 HT/WT: 182.9 cm (72 107.1 kg in) (235.5 lb) GENDER: M BP: 85 / 56 LOCATION: [facility] PATIENT Inpatient [facility] STATUS: *ORDERING PHYSICIAN: * Temi Lynne *READING PHYSICIAN: * Alyssa Ag MD *HEAD START COORDINATOR: * Mari Parry -------- INDICATIONS: Chest pain. -------- CONCLUSIONS SUMMARY: 1. Left ventricle: Systolic function is normal. The estimated ejection fraction is 69%. 2. Right ventricle: The cavity size is normal. Systolic function is normal. Right ventricular systolic pressure is within the normal range. 3. No significant valve disease. -------- STUDY DATA: Complete transthoracic echocardiogram. Procedure: Image quality was adequate. M-mode, complete 2D, complete spectral Doppler, and color flow Doppler images were acquired and archived for permanent storage and are available for subsequent review. Study status: Routine. Patient status: Inpatient. ECG RHYTHM: NSR -------- FINDINGS LEFT VENTRICLE: The cavity size is normal. Wall thickness is normal. Systolic function is normal. The estimated ejection fraction is 69%. There are no regional wall motion abnormalities. Left ventricular diastolic function parameters are normal for the patient's age. RIGHT VENTRICLE: The cavity size is normal. Systolic function is normal. Right ventricular systolic pressure is within the normal range. VENTRICULAR SEPTUM: There is no evidence of a ventricular septal defect. LEFT ATRIUM: The atrium is normal in size. RIGHT ATRIUM: The atrium is normal in size. ATRIAL SEPTUM: Color Doppler shows no shunt. MITRAL VALVE: Structurally normal valve. Doppler: There is no regurgitation. AORTIC VALVE: Trileaflet; mildly calcified leaflets. Doppler: There is no stenosis. There is no regurgitation. The peak systolic gradient is 4 mm Hg. The peak systolic velocity is 1 m/sec. TRICUSPID VALVE: Structurally normal valve. Doppler: There is trivial, less than 1+ regurgitation. PULMONIC VALVE: Structurally normal valve. Doppler: There is trivial, less than 1+ regurgitation. AORTA: The aorta is normal. PULMONARY ARTERY: Main pulmonary artery: Normal. PERICARDIUM: There is no pericardial effusion. SYSTEMIC VEINS: Inferior vena cava: The vessel is not well visualized. -------- Measurements Value Reference Aortic root ID, ED (sinus) 3.9 cm <4.4 Value Reference Ascending aorta ID, A-P, S 3.3 cm Ascending aorta ID/bsa, A-P, S 1.4 cm/m^2 Left ventricle Value Reference LV ID, ED 4.7 cm 4.2 - 5.8 LV ID, ES 2.8 cm 2.5 - 4.0 LV ID/bsa, ED (L) 2.0 cm/m^2 2.2 - 3.0 LV ID/bsa, ES (L) 1.2 cm/m^2 1.3 - 2.1 LV PW thickness, ED 0.9 cm 0.6 - 1.0 LV PW/LV ID ratio, ED 0.2 LV wall mass 165 g 96 - 200 LV wall mass/bsa 70 g/m^2 50 - 102 Stroke volume/bsa, 1-p A2C 15.5 ml/m^2 LV end-diastolic volume, 1-p A4C 76 ml 69 - 185 LV end-systolic volume, 1-p A4C (L) 19 ml 22 - 78 LV end-diastolic volume, 2-p 69 ml 62 - 150 LV end-systolic volume, 2-p 22 ml 21 - 61 LV ejection fraction, 2-p 69 % 52 - 72 LV E/e', lateral 7.3 LV E/e', medial 9.1 LV E/e', average 8.1 Ventricular septum Value Reference IVS thickness, ED (H) 1.1 cm 0.6 - 1.0 LVOT Value Reference LVOT ID, A-P 2.2 cm LVOT mean velocity, S 0.6 m/sec LVOT peak gradient, S 4 mm Hg Stroke volume (SV), LVOT DP 70 ml Stroke index (SV/bsa), LVOT DP 30 ml/m^2 Aortic valve Value Reference Aortic valve peak velocity, S 1 m/sec Aortic peak gradient, S 4 mm Hg Left atrium Value Reference LA volume/bsa, ES, 2-p 22 ml/m^2 16 - 34 Mitral valve Value Reference Mitral E-wave peak velocity 0.6 m/sec Mitral A-wave peak velocity 0.5 m/sec Mitral deceleration time 387 ms Mitral E/A ratio, peak 1.1 Tricuspid valve Value Reference Tricuspid regurg peak velocity 2.4 m/sec <=2.8 Tricuspid peak RV-RA gradient 23 mm Hg Right ventricle Value Reference TAPSE, 2D 2.1 cm 1.7 - 3.1 RV s', lateral 10.5 cm/sec 6.0 - 13.4 Pulmonic valve Value Reference Pulmonic peak gradient, S 2 mm Hg Legend: (L) and (H) stella values outside specified reference range. Electronically signed by Alyssa Ag MD 12/01/2021 17:40 P (more content not included)... [facility] Work Phone: ECHO Complete 2D W Doppler W ColorOrdered By: Alyssa Ag on 12-01-2021 [employer] Work Phone: ED Provider Noteon ED Provider Note DRAGAN MCGRAW ED eMERGENCY dEPARTMENT eNCOUnter Pt Name: Jaylen Queen Birthdate 1960 Date of evaluation: 12/01/2021 Provider: EDMUND KAUR CHIEF COMPLAINT Chief Complaint Patient presents with Urinary Tract Infection Been treated outpt, getting worse. HISTORY OF PRESENT ILLNESS (Location/Symptom, Timing/Onset,Context/ Setting, Quality, Duration, Modifying Factors, Severity) Note limiting factors. HPI This patient was seen in conjunction with Dr. Leon who also interviewed and evaluated the patient at bedside. Jaylen Queen is a 61 y.o. male who presents to the emergency department complaining of ongoing right-sided flank pain. Patient states has been treated for urinary tract infection with 2 separate courses of antibiotics over the past couple of weeks. He states he was initially treated with Macrobid and got some improvement and symptoms returned. He was then given IM gentamicin with no improvement. A urine culture done on 11/27/2021 grew out E. coli suggestive of ESBL-producing organism. The patient has had nausea. He has had subjective fevers with sweats and chills. Nursing Notes were reviewed. REVIEW OF SYSTEMS (2+ for4; 10+ for level 5) Review of Systems Constitutional: Positive for activity change and appetite change. Negative for chills, diaphoresis and fever. HENT: Negative for congestion, ear pain, facial swelling, rhinorrhea and sore throat. Eyes: Negative for photophobia, pain and visual disturbance. Respiratory: Negative for cough, chest tightness, shortness of breath and wheezing. Cardiovascular: Negative for chest pain and leg swelling. Gastrointestinal: Positive for nausea. Negative for abdominal pain, constipation, diarrhea and vomiting. Genitourinary: Positive for flank pain. Negative for difficulty urinating, dysuria, frequency, hematuria and urgency. Musculoskeletal: Negative for arthralgias, back pain, myalgias and neck pain. Skin: Negative for rash. Neurological: Negative for dizziness and headaches. Psychiatric/Behaviora l: Negative for suicidal ideas. PAST MEDICAL HISTORY Past Medical History: Diagnosis Date Benign neoplasm of pituitary gland and craniopharyngeal duct (pouch) (HCC) Chest pain, unspecified Diverticulitis Esophageal reflux Essential hypertension, benign Kidney stone Other abnormal blood chemistry Other and unspecified hyperlipidemia Other anterior pituitary disorders Other testicular hypofunction Pituitary tumor Tobacco use disorder Unspecified hearing loss Unspecified hypothyroidism SURGICALHISTORY Past Surgical History: Procedure Laterality Date CHOLECYSTECTOMY COLONOSCOPY KNEE SURGERY Right SMALL INTESTINE SURGERY TONSILLECTOMY CURRENT MEDICATIONS Previous Medications ASPIRIN 81 MG TABLET Take 81 mg by mouth daily Most days CABERGOLINE (DOSTINEX) 0.5 MG TABLET Take 1.5 tabs on Saturday and saturday FENOFIBRATE (TRIGLIDE) 160 MG TABLET TAKE 1 TABLET BY MOUTH EVERY DAY LEVOTHYROXINE (SYNTHROID) 100 MCG TABLET TAKE 1 TABLET BY MOUTH EVERY DAY NIACIN (NIASPAN) 1000 MG EXTENDED RELEASE TABLET 1000 mg p.o. daily NITROFURANTOIN, MACROCRYSTAL-MONOHYDR ATE, (MACROBID) 100 MG CAPSULE Take 1 capsule by mouth 2 times daily for 7 days ROSUVASTATIN (CRESTOR) 10 MG TABLET Take 1 tablet by mouth daily TRIAMTERENE-HYDROCHLO ROTHIAZIDE (MAXZIDE-25) 37.5-25 MG PER TABLET Take 1 tablet by mouth daily Demerol hcl [meperidine] FAMILY HISTORY Family History Adopted: Yes Problem Relation Age of Onset Cancer Mother lung No Known Problems Father SOCIAL HISTORY Social History Socioeconomic History Marital status: Tobacco Use Smoking status: Every Day Packs/day: 1.00 Years: 40.00 Pack years: 40.00 Types: Cigarettes Smokeless tobacco: Never Vaping Use Vaping Use: Never used Substance and Sexual Activity Alcohol use: No Alcohol/week: 0.0 standard drinks Comment: rarely Drug use: Yes Types: Marijuana ([place]) Social Determinants of Health Financial Resource Strain: Low Risk Difficulty of Paying Living Expenses: Not hard at all Food Insecurity: No Food Insecurity Worried About Running Out of Food in the Last Year: Never true Ran Out of Food in the Last Year: Never true Transportation Needs: No Transportation Needs Lack of Transportation (Medical): No Lack of Transportation (Non-Medical): No SCREENINGS [place] Coma Scale Eye Opening: Spontaneous Best Verbal Response: Oriented Best Motor Response: Obeys commands [place] Coma Scale Score: 15 PHYSICAL EXAM (5+ for level 4, 8+ for level 5) ED Triage Vitals BP Temp Temp Source Heart Rate Resp SpO2 Height Weight 12/01/21 0955 12/01/21 0955 12/01/21 0955 12/01/21 0955 12/01/21 0955 12/01/21 0955 12/01/21 1017 12/01/21 1017 123/79 97.2 ?F (36.2 ?C) Temporal 88 18 97 % 6' 2 (1.88 m) 236 lb (107 kg) Physical Exam Vitals and nursing note reviewed. Constitutional: General: (more content not included)... Normal [facility] ED Provider Note Patient, Jaylen Queen, is seen and examined in conjunction with advanced practice practitioner. I independently performed history, physical exam, admitted all diagnostic treatment and disposition decisions. In brief their history revealed ongoing right flank pain, dysuria, nausea and dry heaves, tactile fevers chills and sweats. Patient's been having similar type symptoms for the past couple of weeks at least. Progressive and now severe. He has had 2 cultures that show ESBL E. coli with multiple resistance (first 1 on November 14 and second on November 27). He initially was put on Macrobid. Got better then got worse. Another culture on November 27 showed same organism so he was given an injection of gentamicin and again is on Macrobid. Despite this he is getting worse. Of note, there was a second culture obtained on November 27, I believe from the ED, which was negative. Their focused exam revealed awake, alert, vital signs are benign. Patient appears ill but no distress. ED course: Given his ongoing symptoms and failure of outpatient treatment, will check a broad sepsis work-up, plan for IV meropenem and ID consult and hospital admission. Patients symptoms are consistent with sepsis, severe sepsis, or septic shock (If yes use .sepsiscoremeasure) : yes All diagnostic, treatment, and disposition decisions were made by myself in conjunction with the mid-level provider. I, Barry Leon MD, am the primary physician of record. This will serve as my Supervisory note and shared attestation. I did perform a substantive portion of the visit including all aspects of the Medical Decision Making. For all further details of the patient's emergency department visit, please see the advance practice provider's documentation. 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: RE : 1960 Requested By: TEMI LYNNE Order Number: [id number] Reading MD: Barry Leon Measurements Intervals [place]rose Rate: 60 P: 55 IN: 190 QRS: -73 QRSD: 111 T: 30 QT: 427 QTc: 425 Interpretive Statements Sinus rhythm Inferior infarct, old Consider anterior infarct Compared to ECG from 05-23-12, no significant change Electronically Signed On 12-01-2021 14:06:11 EDT by Barry Leon [facility] Barry Leon MD - 12/01/2021 [facility] Test Date: 2021-12-01 Pat Name: JAYLEN QUEEN Department: 2AED Room: 06 Gender: M 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 Machine: RE : 1960 Requested By: TEMI LYNNE Order Number: [id number] Reading MD: Barry Leon Measurements Intervals [place]rose Rate: 60 P: 55 IN: 190 QRS: -73 QRSD: 111 T: 30 QT: 427 QTc: 425 Interpretive Statements Sinus rhythm Inferior infarct, old Consider anterior infarct Compared to ECG from 05-23-12, no significant change Electronically Signed On 12-01-2021 14:06:11 EDT by Barry Leon [facility] Work Phone: EKG 12 LeadOrdered By: Barry Leon on 12-01-2021 [facility] Work Phone: Echo Complete w/wo Contrasto n 12-01-2021 Echo Complete w/wo Contrast Patient Name: JAYLEN QUEEN Ultrasound ACCESSION EXAM DATE/TIME PROCEDURE ORDERING PROVIDER [id number] 12/01/2021 15:51 EDT Echo Complete w/wo [id number] -TEMI LYNNE Contrast Reason For Exam (Echo Complete w/wo Contrast) chest pain Report TRANSTHORACIC ECHOCARDIOGRAM PATIENT: Jaylen Queen STUDY DATE: 12/01/2021 : 1960 AGE: 61 HT/WT: 182.9 cm (72 107.1 kg in) (235.5 lb) GENDER: M BP: 85 / 56 LOCATION: [facility] PATIENT [facility] STATUS: *ORDERING PHYSICIAN: * Temi Lynne *READING PHYSICIAN: * Alyssa Ag MD *HEAD START COORDINATOR: * Mari Parry -------- INDICATIONS: Chest pain. -------- CONCLUSIONS SUMMARY: 1. Left ventricle: Systolic function is normal. The estimated ejection fraction is 69%. 2. Right ventricle: The cavity size is normal. Systolic function is normal. Right ventricular systolic pressure is within the normal range. 3. No significant valve disease. -------- STUDY DATA: Complete transthoracic echocardiogram. Procedure: Image quality was adequate. M-mode, complete 2D, complete spectral Doppler, and color flow Doppler images were acquired and archived for permanent storage and are available for subsequent review. Study status: Routine. Patient status: Inpatient. ECG RHYTHM: NSR -------- FINDINGS LEFT VENTRICLE: The cavity size is normal. Wall thickness is normal. Systolic function is normal. The estimated ejection fraction is 69%. There are no regional wall motion abnormalities. Left ventricular diastolic function parameters are normal for the patient's age. RIGHT VENTRICLE: The cavity size is normal. Systolic function is normal. Right ventricular systolic pressure is within the normal range. VENTRICULAR SEPTUM: There is no evidence of a ventricular septal Ultrasound Report defect. LEFT ATRIUM: The atrium is normal in size. RIGHT ATRIUM: The atrium is normal in size. ATRIAL SEPTUM: Color Doppler shows no shunt. MITRAL VALVE: Structurally normal valve. Doppler: There is no regurgitation. AORTIC VALVE: Trileaflet; mildly calcified leaflets. Doppler: There is no stenosis. There is no regurgitation. The peak systolic gradient is 4 mm Hg. The peak systolic velocity is 1 m/sec. TRICUSPID VALVE: Structurally normal valve. Doppler: There is trivial, less than 1+ regurgitation. PULMONIC VALVE: Structurally normal valve. Doppler: There is trivial, less than 1+ regurgitation. AORTA: The aorta is normal. PULMONARY ARTERY: Main pulmonary artery: Normal. PERICARDIUM: There is no pericardial effusion. SYSTEMIC VEINS: Inferior vena cava: The vessel is not well visualized. -------- Measurements Value Reference Aortic root ID, ED (sinus) 3.9 cm <4.4 Value Reference Ascending aorta ID, A-P, S 3.3 cm Ascending aorta ID/bsa, A-P, S 1.4 cm/m^2 Left ventricle Value Reference LV ID, ED 4.7 cm 4.2 - 5.8 LV ID, ES 2.8 cm 2.5 - 4.0 LV ID/bsa, ED (L) 2.0 cm/m^2 2.2 - 3.0 LV ID/bsa, ES (L) 1.2 cm/m^2 1.3 - 2.1 LV PW thickness, ED 0.9 cm 0.6 - 1.0 LV PW/LV ID ratio, ED 0.2 LV wall mass 165 g 96 - 200 LV wall mass/bsa 70 g/m^2 50 - 102 Stroke volume/bsa, 1-p A2C 15.5 ml/m^2 LV end-diastolic volume, 1-p A4C 76 ml 69 - 185 LV end-systolic volume, 1-p A4C (L) 19 ml 22 - 78 LV end-diastolic volume, 2-p 69 ml 62 - 150 LV end-systolic volume, 2-p 22 ml 21 - 61 LV ejection fraction, 2-p 69 % 52 - 72 LV E/e', lateral 7.3 LV E/e', medial 9.1 LV E/e', average 8.1 Ventricular septum Value Reference IVS thickness, ED (H) 1.1 cm 0.6 - 1.0 LVOT Value Reference LVOT ID, A-P 2.2 cm LVOT mean velocity, S 0.6 m/sec LVOT peak gradient, S 4 mm Hg Stroke volume (SV), LVOT DP 70 ml Stroke index (SV/bsa), LVOT DP 30 ml/m^2 Aortic valve Value Reference Aortic valve peak velocity, S 1 m/sec Aortic peak gradient, S 4 mm Hg Ultrasound Report Left atrium Value Reference LA volume/bsa, ES, 2-p 22 ml/m^2 16 - 34 Mitral valve Value Reference Mitral E-wave peak velocity 0.6 m/sec Mitral A-wave peak velocity 0.5 m/sec Mitral deceleration time 387 ms Mitral E/A ratio, peak 1.1 Tricuspid valve Value Reference Tricuspid regurg peak velocity 2.4 m/sec <=2.8 Tricuspid peak RV-RA gradient 23 mm Hg Right ventricle Value Reference TAPSE, 2D 2.1 cm 1.7 - 3.1 RV s', lateral 10 (more content not included)... Normal [facility] Hemogram w/ Autodiffon 12-01 Abs Baso Cnt 0.0 10*3/uL Normal 0.0-0.2 [facility] Comment on above: Performed By: #### H EMDF, TSH5, LIPD2, CMP3M #### [facility] [place] [facility] [address] [place] [address] Abs Neutrophile Cnt 13.8 10*3/uL High 1.8-7.0 [facility] Comment on above: Performed By: #### H EMDF, TSH5, LIPD2, CMP3M #### [facility] [place] [facility] [address] [place] [address] Basophils/100 WBC (Bld) 0.2 % Normal 0.0-2.0 [facility] Comment on above: Performed By: #### H EMDF, TSH5, LIPD2, CMP3M #### [facility] [place] [facility] [address] [place] [address] Eosinophils (Bld) [#/Vol] 0.9 10*3/uL High 0.0-0.5 [facility] Comment on above: Performed By: #### H EMDF, TSH5, LIPD2, CMP3M #### [facility] [place] [facility] [address] [place] [address] Eosinophils/100 WBC (Bld) 5.7 % Normal 1.0-6.0 [facility] Comment on above: Performed By: #### H EMDF, TSH5, LIPD2, CMP3M #### [facility] [address] [place] [address] Erythrocyte distribution width (RBC) [Ratio] 13.6 % Normal 11.5-14.5 [facility] Comment on above: Performed By: #### H EMDF, TSH5, LIPD2, CMP3M #### [facility] [address] [place] [address] Granulocytes/100 WBC (Bld) 85.2 % High 40.0-80.0 [facility] Comment on above: Performed By: #### H EMDF, TSH5, LIPD2, CMP3M #### [facility] [address] [place] [address] Hematocrit (Bld) [Volume fraction] 45.8 % Normal 40.0-52.0 [facility] Comment on above: Performed By: #### H EMDF, TSH5, LIPD2, CMP3M #### [facility] [address] [place] [address] Hemoglobin (Bld) [Mass/Vol] 15.8 g/dL Normal 13.0-18.0 [facility] Comment on above: Performed By: #### H EMDF, TSH5, LIPD2, CMP3M #### [facility] [address] [place] [address] Lymphocytes (Bld) [#/Vol] 0.8 10*3/uL Low 1.0-4.3 [facility] Comment on above: Performed By: #### H EMDF, TSH5, LIPD2, CMP3M #### [facility] [address] [place] [address] Lymphocytes/100 WBC (Bld) 4.8 % Low 20.0-40.0 [facility] Comment on above: Performed By: #### H EMDF, TSH5, LIPD2, CMP3M #### [facility] [address] [place] [address] MCH (RBC) [Entitic mass] 30.5 pg Normal 26.0-34.0 [facility] Comment on above: Performed By: #### H EMDF, TSH5, LIPD2, CMP3M #### [facility] [address] [place] [address] MCHC 34.5 % Normal 32.0-36.0 [facility] Comment on above: Performed By: #### H EMDF, TSH5, LIPD2, CMP3M #### [facility] [address] [place] [address] MCV (RBC) [Entitic vol] 88.5 fL Normal 80.0-98.0 [facility] Comment on above: Performed By: #### H EMDF, TSH5, LIPD2, CMP3M #### [facility] [address] [place] [address] Monocytes (Bld) [#/Vol] 0.7 10*3/uL Normal 0.0-0.8 [facility] Comment on above: Performed By: #### H EMDF, TSH5, LIPD2, CMP3M #### [facility] [address] [place] [address] Monocytes/100 WBC (Bld) 4.1 % Normal 2.0-10.0 [facility] Comment on above: Performed By: #### H EMDF, TSH5, LIPD2, CMP3M #### [facility] [address] [place] [address] Platelet mean volume (Bld) [Entitic vol] 7.7 fL Normal 7.4-12.4 [facility] Comment on above: Result Comment: MPV is a calculated measurement using platelet volume ratio. Performed By: #### H EMDF, TSH5, LIPD2, CMP3M #### [facility] [address] [place] [address] Platelets (Bld) [#/Vol] 255 10*3/uL Normal 140-440 [facility] Comment on above: Performed By: #### H EMDF, TSH5, LIPD2, CMP3M #### [facility] [address] [place] [address] RBC (Bld) [#/Vol] 5.18 10*6/uL Normal 4.40-5.90 [facility] Comment on above: Performed By: #### H EMDF, TSH5, LIPD2, CMP3M #### [facility] [address] [place] [address] WBC (Bld) [#/Vol] 16.3 10*3/uL High 3.6-10.7 [facility] Comment on above: Performed By: #### H EMDF, TSH5, LIPD2, CMP3M #### [facility] [address] [place] [address] Hepatic Functionon 2 ALT [Catalytic activity/Vol] 20 U/L Normal 0-49 [facility] Comment on above: Result Comment: The ALT test is performed by an updated assay method. Please note that the reference intervals have been changed and are now sex specific. Performed By: #### H EMDF, TSH5, LIPD2, CMP3M #### [facility] [address] [place] [address] ALP [Catalytic activity/Vol] 58 U/L Normal 38-126 [facility] Comment on above: Performed By: #### H EMDF, TSH5, LIPD2, CMP3M #### [facility] [address] [place] [address] AST [Catalytic activity/Vol] 27 U/L Normal 15-46 [facility] Comment on above: Performed By: #### H EMDF, TSH5, LIPD2, CMP3M #### [facility] [address] [place] [address] Bilirubin [Mass/Vol] 0.7 mg/dL Normal 0.2-1.3 [facility] Comment on above: Performed By: #### H EMDF, TSH5, LIPD2, CMP3M #### [facility] [address] [place] [address] Bilirubin.indirect [Mass/Vol] 0.0 mg/dL Normal 0.0-0.3 [facility] Comment on above: Performed By: #### H EMDF, TSH5, LIPD2, CMP3M #### [facility] [address] [place] [address] Protein [Mass/Vol] 7.8 g/dL Normal 6.3-8.2 [facility] Comment on above: Performed By: #### H EMDF, TSH5, LIPD2, CMP3M #### [facility] [address] [place] [address] Albumin [Mass/Vol] 4.4 g/dL Normal 3.5-5.0 [facility] Comment on above: Performed By: #### H EMDF, TSH5, LIPD2, CMP3M #### [facility] [address] [place] [address] Hepatic Function Panelon Albumin [Mass/Vol] 4.4 g/dL 3.5 - 5 g/dL [facility] ALP (Bld) [Catalytic activity/Vol] 58 U/L 38 - 126 U/L [facility] ALT [Catalytic activity/Vol] 20 U/L 0 - 49 U/L [facility] Comment on above: The ALT test is perf ormed by an updated assay method. Please note that the reference intervals have been changed and are now sex specific. AST [Catalytic activity/Vol] 27 U/L 15 - 46 U/L [facility] Bilirubin [Mass/Vol] 0.7 mg/dL 0.2 - 1 .3 mg/dL [facility] Bilirubin.indirect [Mass/Vol] 0.0 mg/dL 0 - 0.3 mg/dL [facility] Protein [Mass/Vol] 7.8 g/dL 6.3 - 8.2 g/dL [facility] Lactate, Sepsison 12-01-2021 Lactate [Moles/Vol] 1.1 mmol/L 0.7 - 2 mmol/L [facility] Test Performed by [facility], [address] [place] [address] [facility] Lactic Acid, Sepsison 2021 Lactate [Moles/Vol] 1.1 mmol/L Normal 0.7-2.0 [facility] Comment on above: Performed By: #### H EMDF, TSH5, LIPD2, CMP3M #### [facility] [address] [place] [address] Lipaseon 12-01-2021 Lipase [Catalytic activity/Vol] 24 U/L Normal 23-300 [facility] Comment on above: Performed By: #### H EMDF, TSH5, LIPD2, CMP3M #### [facility] [address] [place] [address] Lipase [Catalytic activity/Vol] 24 U/L 23 - 300 U/L [facility] No Panel Informationon 12-01 Test Performed by [facility], [address] [place], [place] [id number] [place] [address] LAB [facility] Troponinon 12-01-2021 Troponin I.cardiac [Mass/Vol] ng/mL 0 - 0.034 ng/mL [facility] Work Phone: Comment on above: . Test Performed by [facility], [address] LAB [facility] Work Phone: Troponin Ion 12-01-2021 Troponin I.cardiac [Mass/Vol] ng/mL Normal 0.000-0.034 [facility] Comment on above: Result Comment: . Performed By: #### H EMDF, TSH5, LIPD2, CMP3M #### [facility] [address] [place] [address] Urinalysison 12-01-2021 Appearance (U) Clear Clear NA [facility] Comment on above: . Bilirubin Urine Negative Negative mg/dL [facility] Comment on above: . Color (U) Yellow Lt. Yellow NA [facility] Comment on above: . Glucose, Ur Normal Normal (<70) mg/dL [facility] Comment on above: . Ketones Ql (U) Negative Negative mg/dL [facility] Comment on above: . LEUKOCYTES, UA Negative Negative Irina/uL [facility] Comment on above: . Nitrite, Urine Negative Negative NA [facility] Comment on above: . Occult Blood,Urine Negative Negative mg/dL [facility] Comment on above: . pH (U) 6.0 [pH] [facility] Comment on above: . Specific [place], Urine 1.015 [facility] Comment on above: . Total Protein, Urine Negative Negativ e mg/dL [facility] Comment on above: . Urobilinogen, Urine Normal Normal (0-1) mg/dL [facility] Comment on above: . Test Performed by [facility], [address] [place] [id number] [facility] XR CHEST PORTABLEon 12-02-19 Patient Name: JAYLEN QUEEN Diagnostic Radiology ACCESSION EXAM DATE/TIME PROCEDURE ORDERING PROVIDER [id number] 12/01/2021 12:48 EDT CR Chest Portable [id number] -TAYAL, TEMI CPT code 58318 Reason For Exam (CR Chest Portable) sob Report PORTABLE CHEST (Frontal View) History: Dyspnea for 2 weeks Comparison: 08/03/2018 Findings: Frontal portable chest view shows crowded lung markings in the bases with interstitial prominence of both lungs without acute infiltrate or congestion. The heart is normal in size. There are atherosclerotic calcifications. There is no mediastinal widening or pleural effusion. There is spondylosis. IMPRESSION: Interstitial prominence of the lungs. No acute infiltrate. Follow-up suggested if clinically warranted. Report Dictated on --- Final --- Dictating Physician: MD MILLER AHMAD Signed Date and Time: 12/01/2021 1:58 pm Signed by: MD MILLER AHMAD Transcribed Date and Time: 12/01/2021 2:32 [facility] Hema Miller MD - 12/01/2021 Patient Name: JAYLEN QUEEN Diagnostic Radiology ACCESSION EXAM DATE/TIME PROCEDURE ORDERING PROVIDER [id number] 12/01/2021 12:48 EDT CR Chest Portable [id number] -TAYAL, TEMI CPT code 41762 Reason For Exam (CR Chest Portable) sob Report PORTABLE CHEST (Frontal View) History: Dyspnea for 2 weeks Comparison: 08/03/2018 Findings: Frontal portable chest view shows crowded lung markings in the bases with interstitial prominence of both lungs without acute infiltrate or congestion. The heart is normal in size. There are atherosclerotic calcifications. There is no mediastinal widening or pleural effusion. There is spondylosis. IMPRESSION: Interstitial prominence of the lungs. No acute infiltrate. Follow-up suggested if clinically warranted. Report Dictated on --- Final --- Dictating Physician: MD MILLER AHMAD Signed Date and Time: 12/01/2021 1:58 pm Signed by: MD MILLER AHMAD Transcribed Date and Time: 12/01/2021 2:32 [facility] Work Phone: Radiology Study observation (narrative) [facility] Work Phone: XR CHEST PORTABLEOrdered By: Hema Miller on 12-01-2021 [facility] Work Phone: CULTURE URINEon 11-29-2021 CULTURE URINE CULTURE URINE --> Status: F No growth (<1,000 CFU/ml). Normal [facility] Comment on above: Performed By: #### C UA2 #### [facility] [address] [place] [address] Basic Metabolic Panelon 10-0 Anion gap [Moles/Vol] 10 mmol/L Normal 3-13 [facility] Comment on above: Performed By: #### H EMDF, TSH5, LIPD2, CMP3M #### [facility] [address] [place] [address] Calcium [Mass/Vol] 11.3 mg/dL High 8.4-10.4 [facility] Comment on above: Performed By: #### H EMDF, TSH5, LIPD2, CMP3M #### [facility] [address] [place] [address] CO2 [Moles/Vol] 21 mmol/L Low 22-30 [facility] Comment on above: Performed By: #### H EMDF, TSH5, LIPD2, CMP3M #### [facility] [address] [place] [address] Glucose [Mass/Vol] 135 mg/dL High 70-100 [facility] Comment on above: Performed By: #### H EMDF, TSH5, LIPD2, CMP3M #### [facility] [address] [place] [address] Urea nitrogen [Mass/Vol] 20 mg/dL High 7-17 [facility] Comment on above: Performed By: #### H EMDF, TSH5, LIPD2, CMP3M #### [facility] [address] [place] [address] Creatinine [Mass/Vol] 1.33 mg/dL High 0.52-1.25 [facility] Comment on above: Performed By: #### H EMDF, TSH5, LIPD2, CMP3M #### [facility] [address] [place] [address] GFR/1.73 sq M.predicted among blacks MDRD (S/P/Bld) [Vol rate/Area] 66.8 mL/min/{1.73_m2} Normal >60 [facility] Comment on above: Performed By: #### H EMDF, TSH5, LIPD2, CMP3M #### [facility] [address] [place] [address] GFR/1.73 sq M.predicted among non-blacks MDRD (S/P/Bld) [Vol rate/Area] 57.6 mL/min/{1.73_m2} Abnormal >60 [facility] Comment on above: Result Comment: KDIG O guidelines provide the following GFR categories: Stage GFR(ml/min/1.73 m2) Terms G1 >=90 Normal or high G2 60-89 Mildly decreased* G3a 45-59 Mildly to moderately decreased G3b 30-44 Moderately to severely decreased G4 15-29 Severely decreased G5 <15 Kidney failure *Relative to young adult level. In the absence of evidence of kidney damage, neither GFR category G1 nor G2 fulfill the criteria for CKD. The CKD-EPI equation is validated in individuals 18 years of age and older. Currently the best equation for estimating glomerular filtration rate (GFR) from serum creatinine in children is the Bedside Graf equation. It is less accurate in patients with extremes of muscle mass, restriction of dietary protein, ingestion of creatine, extra-renal metabolism of creatinine, or treatment with medications that affect renal tubular creatinine secretion. Performed By: #### H EMDF, TSH5, LIPD2, CMP3M #### [facility] [address] [place] [address] Chloride [Moles/Vol] 105 mmol/L Normal 98-107 [facility] Comment on above: Performed By: #### H EMDF, TSH5, LIPD2, CMP3M #### [facility] [address] [place] [address] Potassium [Moles/Vol] 3.9 mmol/L Normal 3.5-5.1 [facility] Comment on above: Performed By: #### H EMDF, TSH5, LIPD2, CMP3M #### [facility] [address] [place] [address] Sodium [Moles/Vol] 136 mmol/L Normal 135-145 [facility] Comment on above: Performed By: #### H EMDF, TSH5, LIPD2, CMP3M #### [facility] [address] [place] [address] CT Abdomen/Pelvis w/o Contra ston 11-28-2021 CT Abdomen/Pelvis w/o Contrast Patient Name: JAYLEN QUEEN Computed Tomography ACCESSION EXAM DATE/TIME PROCEDURE ORDERING PROVIDER [id number] 11/27/2021 23:[address] Abdomen/Pelvis (No MD MIKE, ZHENG PO, No IV) CPT code 44586 Reason For Exam (CT Abdomen/Pelvis (No PO, No IV)) right flank pain Report CT ABDOMEN AND PELVIS WITHOUT CONTRAST CLINICAL INDICATION: right flank pain TECHNIQUE: CT scan of the abdomen and pelvis, without IV contrast. Multiplanar reformations. COMPARISON: July,. FINDINGS: Abdomen: Solid organ evaluation limited due to lack of IV contrast. Visualized lung bases grossly unremarkable. Gallbladder surgically absent. Kidneys grossly unremarkable. Probable bilateral renal cysts, largest in the left renal upper pole measuring/approximate ly 2 cm. No intrarenal calculi, significant hydronephrosis or abnormal perinephric fluid collection. Liver shows diffusely decreased attenuation without focal abnormality. Remainder of abdominal parenchyma grossly unremarkable. Pelvis: No apparent calcifications or significant dilatation in the distal ureters. Bladder nondistended, with mild concentric wall thickening, but no significant perivesical fat stranding. Bowel grossly unremarkable. Postsurgical change and apparent anastomosis in the sigmoid colon. Appendix within normal limits. No significant, free peritoneal fluid or loculated fluid collection. Computed Tomography Report Diffuse aortoiliac calcification without aneurysmal dilatation. Degenerative change in the thoracic and lumbar spine. IMPRESSION: 1. No apparent urolithiasis or significant hydronephrosis. Probable renal cysts. 2. Findings which may be due to incomplete or nondistention versus nonspecific postinflammatory change involving the urinary bladder or cystitis. Follow-up as indicated. 3. Hepatic steatosis. Report Dictated on Workstation: [email or web address] Final Dictating Physician: MD LUKE WENDELL Signed Date and Time: 11/27/2021 11:10 pm Signed by: MD LUKE WENDELL Transcribed Date and Time: 11/27/2021 11:11 Normal [facility] Complete Urinalysison 2021 Bacteria LM.HPF (Urine sed) [#/Area] Negative Normal Negative [facility] Comment on above: Result Comment: . Performed By: #### C UA2 #### [facility] [address] [place] [address] Mucous Threads Few Normal Negative [facility] Comment on above: Result Comment: . Performed By: #### C UA2 #### [facility] [address] [place] [address] RBC, Urine 0 - 2 Normal 0-2 [facility] Comment on above: Result Comment: . Performed By: #### C UA2 #### [facility] [address] [place] [address] Squamous Epithelial 0 - 2 Normal 3-5 [facility] Comment on above: Result Comment: . Performed By: #### C UA2 #### [facility] [address] [place] [address] VOLUME, URINE 12 ml Normal [facility] Comment on above: Result Comment: . Performed By: #### C UA2 #### [facility] [address] [place] [address] WBC, Urine 3 - 5 Normal 0-5 [facility] Comment on above: Result Comment: . Performed By: #### C UA2 #### [facility] [address] [place] [address] Appearance (U) Clear Normal Clear [facility] Comment on above: Result Comment: . Performed By: #### C UA2 #### [facility] [address] [place] [address] Bilirubin,Urine Negative Normal Negative [facility] Comment on above: Result Comment: . Performed By: #### C UA2 #### [facility] [address] [place] [address] Color (U) LIGHT YELLOW Normal Lt. Yellow [facility] Comment on above: Result Comment: . Performed By: #### C UA2 #### [facility] [address] [place] [address] Glucose Ql (U) Normal Normal Normal (<70) [facility] Comment on above: Result Comment: . Performed By: #### C UA2 #### [facility] [address] [place] [address] Ketone,Urine Negative Normal Negative [facility] Comment on above: Result Comment: . Performed By: #### C UA2 #### [facility] [address] [place] [address] Leukocytes,Urine 25 Irina/uL Abnormal Negative [facility] Comment on above: Result Comment: . Performed By: #### C UA2 #### [facility] [address] [place] [address] Nitrites,Urine Negative Normal Negative [facility] Comment on above: Result Comment: . Performed By: #### C UA2 #### [facility] [address] [place] [address] Occult Blood,Urine Negative Normal Negative [facility] Comment on above: Result Comment: . Performed By: #### C UA2 #### [facility] [address] [place] [address] pH,Urine 5.0 Normal 5.0-8.0 [facility] Comment on above: Result Comment: . Performed By: #### C UA2 #### [facility] [address] [place] [address] Specific [place],Urine 1.011 Normal 1.005 - 1.030 [facility] Comment on above: Result Comment: . Performed By: #### C UA2 #### [facility] [address] [place] [address] Total Protein,Urine Negative Normal Negative [facility] Comment on above: Result Comment: . Performed By: #### C UA2 #### [facility] [address] [place] [address] Urobilinogen,Urine Normal Normal Normal (0-1) [facility] Comment on above: Result Comment: . Performed By: #### C UA2 #### [facility] [address] [place] [address] Hemogram w/ Autodiffon 11-28 Abs Baso Cnt 0.1 10*3/uL Normal 0.0-0.2 [facility] Comment on above: Performed By: #### H EMDF, TSH5, LIPD2, CMP3M #### [facility] [address] [place] [address] Abs Neutrophile Cnt 11.8 10*3/uL High 1.8-7.0 [facility] Comment on above: Performed By: #### H EMDF, TSH5, LIPD2, CMP3M #### [facility] [address] [place] [address] Basophils/100 WBC (Bld) 0.4 % Normal 0.0-2.0 [facility] Comment on above: Performed By: #### H EMDF, TSH5, LIPD2, CMP3M #### [facility] [address] [place] [address] Eosinophils (Bld) [#/Vol] 0.3 10*3/uL Normal 0.0-0.5 [facility] Comment on above: Performed By: #### H EMDF, TSH5, LIPD2, CMP3M #### [facility] [address] [place] [address] Eosinophils/100 WBC (Bld) 2.5 % Normal 1.0-6.0 [facility] Comment on above: Performed By: #### H EMDF, TSH5, LIPD2, CMP3M #### [facility] [address] [place] [address] Erythrocyte distribution width (RBC) [Ratio] 13.2 % Normal 11.5-14.5 [facility] Comment on above: Performed By: #### H EMDF, TSH5, LIPD2, CMP3M #### [facility] [address] [place] [address] Granulocytes/100 WBC (Bld) 86.0 % High 40.0-80.0 [facility] Comment on above: Performed By: #### H EMDF, TSH5, LIPD2, CMP3M #### [facility] [address] [place] [address] Hematocrit (Bld) [Volume fraction] 47.1 % Normal 40.0-52.0 [facility] Comment on above: Performed By: #### H EMDF, TSH5, LIPD2, CMP3M #### [facility] [address] [place] [address] Hemoglobin (Bld) [Mass/Vol] 17.0 g/dL Normal 13.0-18.0 [facility] Comment on above: Performed By: #### H EMDF, TSH5, LIPD2, CMP3M #### [facility] [address] [place] [address] Lymphocytes (Bld) [#/Vol] 0.8 10*3/uL Low 1.0-4.3 [facility] Comment on above: Performed By: #### H EMDF, TSH5, LIPD2, CMP3M #### [facility] [address] [place] [address] Lymphocytes/100 WBC (Bld) 5.5 % Low 20.0-40.0 [facility] Comment on above: Performed By: #### H EMDF, TSH5, LIPD2, CMP3M #### [facility] [address] [place] [address] MCH (RBC) [Entitic mass] 31.6 pg Normal 26.0-34.0 [facility] Comment on above: Performed By: #### H EMDF, TSH5, LIPD2, CMP3M #### [facility] [address] [place] [address] MCHC 36.1 % High 32.0-36.0 [facility] Comment on above: Performed By: #### H EMDF, TSH5, LIPD2, CMP3M #### [facility] [address] [place] [address] MCV (RBC) [Entitic vol] 87.5 fL Normal 80.0-98.0 [facility] Comment on above: Performed By: #### H EMDF, TSH5, LIPD2, CMP3M #### [facility] [address] [place] [address] Monocytes (Bld) [#/Vol] 0.7 10*3/uL Normal 0.0-0.8 [facility] Comment on above: Performed By: #### H EMDF, TSH5, LIPD2, CMP3M #### [facility] [address] [place] [address] Monocytes/100 WBC (Bld) 5.2 % Normal 2.0-10.0 [facility] Comment on above: Performed By: #### H EMDF, TSH5, LIPD2, CMP3M #### [facility] [address] [place] [address] Platelet mean volume (Bld) [Entitic vol] 9.0 fL Normal 7.4-12.4 [facility] Comment on above: Result Comment: MPV is a calculated measurement using platelet volume ratio. Performed By: #### H EMDF, TSH5, LIPD2, CMP3M #### [facility] [address] [place] [address] Platelets (Bld) [#/Vol] 240 10*3/uL Normal 140-440 [facility] Comment on above: Performed By: #### H EMDF, TSH5, LIPD2, CMP3M #### [facility] [address] [place] [address] RBC (Bld) [#/Vol] 5.38 10*6/uL Normal 4.40-5.90 [facility] Comment on above: Performed By: #### H EMDF, TSH5, LIPD2, CMP3M #### [facility] [address] [place] [address] WBC (Bld) [#/Vol] 13.7 10*3/uL High 3.6-10.7 [facility] Comment on above: Performed By: #### H EMDF, TSH5, LIPD2, CMP3M #### [facility] [address] [place] [address] Basic Metabolic Panelon 10-0 Anion gap [Moles/Vol] 10 mmol/L 3 - 13 mmol/L [facility] Work Phone: Calcium [Mass/Vol] 11.3 mg/dL High 8.4 - 10. 4 mg/dL [facility] Work Phone: Chloride [Moles/Vol] 105 mmol/L 98 - 10 7 mmol/L [facility] Work Phone: CO2 [Moles/Vol] 21 mmol/L Low 22 - 30 mmol/L [facility] Work Phone: Creatinine [Mass/Vol] 1.33 mg/dL High 0.52 - 1.25 mg/dL [facility] Work Phone: EGFR IF NonAfrican [place] 57.6 mL/min Abnormal 60 - PINF mL/min [facility] Work Phone: Comment on above: KDIGO guidelines pro vide the following GFR categories: Stage GFR(ml/min/1.73 m2) Terms G1 >=90 Normal or high G2 60-89 Mildly decreased* G3a 45-59 Mildly to moderately decreased G3b 30-44 Moderately to severely decreased G4 15-29 Severely decreased G5 <15 Kidney failure *Relative to young adult level. In the absence of evidence of kidney damage, neither GFR category G1 nor G2 fulfill the criteria for CKD. The CKD-EPI equation is validated in individuals 18 years of age and older. Currently the best equation for estimating glomerular filtration rate (GFR) from serum creatinine in children is the Bedside Graf equation. It is less accurate in patients with extremes of muscle mass, restriction of dietary protein, ingestion of creatine, extra-renal metabolism of creatinine, or treatment with medications that affect renal tubular creatinine secretion. GFR/1.73 sq M.predicted among blacks MDRD (S/P/Bld) [Vol rate/Area] 66.8 mL/min/{1.73_m2} 60 - PINF mL/min [facility] Work Phone: Glucose [Mass/Vol] 135 mg/dL High 70 - 100 mg/dL [facility] Work Phone: [phone] Potassium [Moles/Vol] 3.9 mmol/L 3.5 - 5.1 mmol/L [facility] Work Phone: [phone] Sodium [Moles/Vol] 136 mmol/L 135 - 145 mmol/L [facility] Work Phone: [phone] Urea nitrogen (BldV) [Mass/Vol] 20 mg/dL High 7 - 17 mg/dL [facility] Work Phone: [phone] CBC with Auto Differentialon 11-27-2021 Absolute Baso # 0.1 10*3/uL 0 - 0.2 10*3/uL [facility] Work Phone: [phone] Absolute Neut # 11.8 10*3/uL High 1.8 - 7 10*3/uL [facility] Work Phone: [phone] Basophils/100 WBC (Bld) 0.4 % 0 - 2 % [facility] Work Phone: Eosinophils (Bld) [#/Vol] 0.3 10*3/uL 0 - 0.5 10*3/uL [facility] Work Phone: [phone] Eosinophils/100 WBC (Bld) 2.5 % 1 - 6 % [facility] Work Phone: [phone] Granulocytes/100 WBC (Bld) 86.0 % High 40 - 80 % [facility] Work Phone: [phone] Hematocrit (Bld) [Volume fraction] 47.1 % 40 - 52 % [facility] Work Phone: [phone] Hemoglobin (Bld) [Mass/Vol] 17.0 g/dL 13 - 18 g/dL [facility] Work Phone: [phone] Interpretation and review of laboratory results Abnormal [facility] Work Phone: [phone] Lymphocytes (Bld) [#/Vol] 0.8 10*3/uL Low 1 - 4.3 10*3/uL [facility] Work Phone: [phone] Lymphocytes/100 WBC (Bld) 5.5 % Low 20 - 40 % [facility] Work Phone: [phone] MCH (RBC) [Entitic mass] 31.6 pg 26 - 34 pg [facility] Work Phone: [phone] MCHC (RBC) [Mass/Vol] 36.1 % High 32 - 36 % [facility] Work Phone: MCV (RBC) [Entitic vol] 87.5 fL 80 - 98 fL [facility] Work Phone: Monocytes (Bld) [#/Vol] 0.7 10*3/uL 0 - 0.8 10*3/uL [facility] Work Phone: Monocytes/100 WBC (Bld) 5.2 % 2 - 10 % [facility] Work Phone: Platelet distribution width (Bld) [Ratio] 13.2 % 11.5 - 14.5 % [facility] Work Phone: [phone] Platelet mean volume (Bld) [Entitic vol] 9.0 fL 7.4 - 12.4 fL [facility] Work Phone: [phone] Comment on above: MPV is a calculated measurement using platelet volume ratio. Platelets (Bld) [#/Vol] 240 10*3/uL 140 - 440 10*3/uL [facility] Work Phone: [phone] RBC (Bld) [#/Vol] 5.38 10*6/uL 4.4 - 5.9 10*6/uL [facility] Work Phone: [phone] WBC (Bld) [#/Vol] 13.7 10*3/uL High 3.6 - 10.7 10*3/uL [facility] Work Phone: [phone] [facility], [address] [place], [place] [address] LAB [facility] Work Phone: [phone] CT Abdomen Pelvis Wo Contras ton 11-27-2021 Patient Name: JAYLEN QUEEN Computed Tomography ACCESSION EXAM DATE/TIME PROCEDURE ORDERING PROVIDER [id number] 11/27/2021 23:[address] Abdomen/Pelvis (No MD MIKE, ZHENG HRAPER, No IV) CPT code 32976 Reason For Exam (CT Abdomen/Pelvis (No PO, No IV)) right flank pain Report CT ABDOMEN AND PELVIS WITHOUT CONTRAST CLINICAL INDICATION: right flank pain TECHNIQUE: CT scan of the abdomen and pelvis, without IV contrast. Multiplanar reformations. COMPARISON: July,. FINDINGS: Abdomen: Solid organ evaluation limited due to lack of IV contrast. Visualized lung bases grossly unremarkable. Gallbladder surgically absent. Kidneys grossly unremarkable. Probable bilateral renal cysts, largest in the left renal upper pole measuring/approximate ly 2 cm. No intrarenal calculi, significant hydronephrosis or abnormal perinephric fluid collection. Liver shows diffusely decreased attenuation without focal abnormality. Remainder of abdominal parenchyma grossly unremarkable. Pelvis: No apparent calcifications or significant dilatation in the distal ureters. Bladder nondistended, with mild concentric wall thickening, but no significant perivesical fat stranding. Bowel grossly unremarkable. Postsurgical change and apparent anastomosis in the sigmoid colon. Appendix within normal limits. No significant, free peritoneal fluid or loculated fluid collection. Computed Tomography Report Diffuse aortoiliac calcification without aneurysmal dilatation. Degenerative change in the thoracic and lumbar spine. IMPRESSION: 1. No apparent urolithiasis or significant hydronephrosis. Probable renal cysts. 2. Findings which may be due to incomplete or nondistention versus nonspecific postinflammatory change involving the urinary bladder or cystitis. Follow-up as indicated. 3. Hepatic steatosis. Report Dictated on Workstation: [email or web address] --- Final --- Dictating Physician: MD LUKE WENDELL Signed Date and Time: 11/27/2021 11:10 pm Signed by: MD LUKE WENDELL Transcribed Date and Time: 11/27/2021 11:11 [facility] Darrick Luke MD - 11/27/2021 Patient Name: JAYELN QUEEN Computed Tomography ACCESSION EXAM DATE/TIME PROCEDURE ORDERING PROVIDER [id number] 11/27/2021 23:[address] Abdomen/Pelvis (No MD MIKE, ZHENG PO, No IV) CPT code 95861 Reason For Exam (CT Abdomen/Pelvis (No PO, No IV)) right flank pain Report CT ABDOMEN AND PELVIS WITHOUT CONTRAST CLINICAL INDICATION: right flank pain TECHNIQUE: CT scan of the abdomen and pelvis, without IV contrast. Multiplanar reformations. COMPARISON: July,. FINDINGS: Abdomen: Solid organ evaluation limited due to lack of IV contrast. Visualized lung bases grossly unremarkable. Gallbladder surgically absent. Kidneys grossly unremarkable. Probable bilateral renal cysts, largest in the left renal upper pole measuring/approximate ly 2 cm. No intrarenal calculi, significant hydronephrosis or abnormal perinephric fluid collection. Liver shows diffusely decreased attenuation without focal abnormality. Remainder of abdominal parenchyma grossly unremarkable. Pelvis: No apparent calcifications or significant dilatation in the distal ureters. Bladder nondistended, with mild concentric wall thickening, but no significant perivesical fat stranding. Bowel grossly unremarkable. Postsurgical change and apparent anastomosis in the sigmoid colon. Appendix within normal limits. No significant, free peritoneal fluid or loculated fluid collection. Computed Tomography Report Diffuse aortoiliac calcification without aneurysmal dilatation. Degenerative change in the thoracic and lumbar spine. IMPRESSION: 1. No apparent urolithiasis or significant hydronephrosis. Probable renal cysts. 2. Findings which may be due to incomplete or nondistention versus nonspecific postinflammatory change involving the urinary bladder or cystitis. Follow-up as indicated. 3. Hepatic steatosis. Report Dictated on Workstation: [email or web address] --- Final --- Dictating Physician: MD LUKE WENDELL Signed Date and Time: 11/27/2021 11:10 pm Signed by: MD LUKE WENDELL Transcribed Date and Time: 11/27/2021 11:11 [facility] Work Phone: Radiology Study observation (narrative) [facility] Work Phone: CT Abdomen Pelvis Wo Contras tOrdered By: Darrick Luke on 11-27-2021 [employer] Work Phone: No Panel Informationon 11-27 Interpretation and review of laboratory results Abnormal [facility] Work Phone: Test [facility]formed by [facility], [facility] [address] , [place], [place] [id number] [place] [address] LAB [facility] Work Phone: Urinalysison 11-27-2021 Appearance (U) Clear Clear NA [facility] Work Phone: [phone] Comment on above: . Bacteria, UA Negative Negative /[HPF] [facility] Work Phone: 1 Comment on above: . Bilirubin Urine Negative Negative mg/dL [facility] Work Phone: 1 Comment on above: . Color (U) LIGHT YELLOW Lt. Yellow NA [facility] Work Phone: 1 Comment on above: . Glucose, Ur Normal Normal (<70) mg/dL [facility] Work Phone: 1 Comment on above: . Ketones Ql (U) Negative Negative mg/dL [facility] Work Phone: 1 Comment on above: . LEUKOCYTES, UA 25 Abnormal Negative Iirna/uL [facility] Work Phone: 1 Comment on above: . Mucous Threads Few Negative /[LPF] [facility] Work Phone: 1 Comment on above: . Nitrite, Urine Negative Negative NA [facility] Work Phone: 1 Comment on above: . Occult Blood,Urine Negative Negative mg/dL [facility] Work Phone: 1 Comment on above: . pH (U) 5.0 [pH] [facility] Work Phone: 1 Comment on above: . RBC, UA /[HPF] 0 - 2 /[HPF] [facility] Work Phone: 1 Comment on above: . Specific [place], Urine [address] [facility] Work Phone: 1 Comment on above: . Squam Epithel, UA 0-2 3 - 5 /[HPF] [facility] Work Phone: 1 Comment on above: . Total Protein, Urine Negative Negativ e mg/dL [facility] Work Phone: 1 Comment on above: . Urobilinogen, Urine Normal Normal (0-1) mg/dL [facility] Work Phone: [phone] Comment on above: . [facility] Work [facility]: 1 Comment on above: . WBC, UA /[HPF] 0 - 5 /[HPF] [facility] Work Phone: [phone] Comment on above: . MRI Brain w/ + w/o Contrasto n 10-18-2021 MRI Brain w/ + w/o Contrast Patient Name: JAYLEN QUEEN Magnetic Resonance Imaging ACCESSION EXAM DATE/TIME PROCEDURE ORDERING PROVIDER [id number] 10/18/2021 12:20 EDT MRI Brain w/ + w/o [id number] -APPUSWAMY, Contrast ROCIO CPT code 78295 Reason For Exam (MRI Brain w/ + w/o Contrast) neoplasm of pituitary gland Report MRI BRAIN WITHOUT AND WITH CONTRAST INDICATIONS: neoplasm of pituitary gland COMPARISON: None TECHNIQUE: Multiplanar, multisequence MRI of the brain was performed without and with intravenous gadolinium contrast. Pituitary protocol. FINDINGS: Sella/pituitary: The long-standing heterogeneously enhancing sellar mass is unchanged in size measuring 1.7 x 2.2 x 1.7 cm (AP, T, CC) versus 1.8 x 2.2 x 1.6 cm on the prior study. There is unchanged sellar expansion, leftward displacement of the pituitary infundibulum, and possible extension into the right cavernous sinus. There is no significant suprasellar extension. The optic chiasm is unremarkable. Acute findings: No evidence of an acute infarct. No mass, fluid collection, or intracranial hemorrhage. Parenchyma: Normal morphology and signal intensity. Enhancement: No other enhancing intracranial masses within study constraints. Ventricles and sulci: Normal caliber of the ventricles and sulci. Skull base: Normal position of the cerebellar tonsils. Vessels: The major intracranial flow voids are preserved. Extracranial structures: Normal orbits. No extracranial soft tissue abnormalities. 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 Magnetic Resonance Imaging Report Report Dictated on Final Dictating Physician: MD WOODARD THOMAS Signed Date and Time: 10/20/2021 8:16 am Signed by: MD WOODARD THOMAS Transcribed Date and Time: 10/20/2021 8:17 Normal [facility] OT Bone Density DEXA Francisco Ske letonon 04-12-2021 OT Bone Density DEXA Francisco Skeleton Patient Name: JAYLEN QUEEN Bone Density ACCESSION EXAM DATE/TIME PROCEDURE ORDERING PROVIDER [id number] 04/12/2021 09:15 EST OT Bone Density DEXA Francisco DO BENITO RYAN Belinda Skeleton CPT code 10513 Reason For Exam (OT Bone Density DEXA Francisco Skeleton) osteoporosis evaluation. elevated PTH Report DXA BONE DENSITOMETRY: CLINICAL INDICATION: osteoporosis evaluation. elevated PTH. Screening for osteoporosis. COMPARISON: None TECHNIQUE: Quantitative bone mineral densitometry of the hip, radius and lumbar spine was performed with a dual energy x-ray observed absorptiometry device - Teachable at some institutions, HOLOGIC at others. Regions of interest were obtained through the proximal femur and compared to the normal value of young adult women. Regions of interest were also obtained through the lumbar vertebrae with an average value determined and compared to the normal value of young adult women. The difference between your measured bone density and the bone density of a normal young woman is expressed in standard deviations as the T score. Similarly, your measured bone density is also compared to age and race matched values, and expressed in standard deviations as the Z score. According to World Health Organization criteria: T-score of -1.0 or higher is normal. T-score between -1.1 to < -2.5 is low bone density or osteopenia. T-score of -2.5 or lower is abnormally low, compatible with osteoporosis. T-score of -2.5 or less plus fragility fracture indicates severe osteoporosis. FINDINGS: Spine: L1-L4 Density 1.390 g/cm2 T-score: 2.7 Z-score: 3.3 Comparison from prior examination: N/A Femoral neck LEFT Density: 0.894 g/cm2 T-score: -0.3 Z-score: 0.7 Total Hip LEFT Density: 1.081 g/cm2 T-score: 0.3 Z-score: 0.8 Comparison from prior examination: N/A Bone Density Report FOREARM 33% Radius LEFT: BMD (gm/cm2): 0.796 T-Score: -0.4 Z-Score: 0.4 Total FOREARM LEFT: BMD (gm/cm2): 0.674 T-Score: -0.2 Z-Score: 0.5 Change Since Previous: N/A IMPRESSION: 1. No evidence of osteopenia or osteoporosis based on World Health Organization (WHO) criteria.. FRACTURE RISK: The estimated 10 year risk for a hip fracture is 0.2% and for a major osteoporosis-related fracture is 3.9%. (FRAX web version 3.11). RECOMMENDATIONS: General recommendations for prevention of bone loss include: 1187-1595 mg calcium intake per day for adults >50yrs, and no history of renal calculi 800-1000 IU of vitamin D3 per day for adults >50yrs, and no history of renal calculi Weight bearing exercise Discontinue smoking Avoid excessive use of caffeine, soft drinks, and alcoholic beverages In addition, balance training and fall prevention programs can help reduce the risk of fractures Pharmacologic treatment recommendations: Initiate pharmacologic treatment in patients with hip or vertebral fracture. In those with T scores by DXA In postmenopausal women and men age 50 or older with low bone mass (T score between -1.0 and -2.5 [osteopenia]) at the femoral neck, total hip, or lumbar spine by DXA have a 10 year hip fracture probability >/= 3% or a 10 year major osteoporosis-related fracture probability >/= 20% based on the [place]-adapted WHO fracture risk model (FRAX). Current FDA-approved pharmacologic options for osteoporosis treatment include bisphosphonates (Fosamax), ibandronate (Boniva), risedronate (Actonel), zoledronic acid (Reclast), estrogens and other hormonal therapies (Evista), parathyroid hormone (Forteo), and denosumab (Prolia). Initiation of pharmacologic therapy should happen only after thorough medical evaluation, discussion of risks and benefits, and with regular monitoring of the therapeutic regimen. Follow-up recommendations: Patients with osteoporosis or or at high risk for fracture should have follow-up bone density tests. For Medicare patients, routine testing is allowed every 2 years. Patients who have low bone mass (T score -2.0 to -2.49), who are currently on treatment for low bone mass, or having risk factors for accelerated bone loss (glucocorticoids, aromatase inhibitors, etc.), consider repeat DXA in 1-2 years. Patients with osteopenia and no risk factors may consider follow-up every 3-5 years. References: Bone Density Report National Osteoporosis Foundation. Clinician's Guide to Prevention and Treatment of Osteoporosis. Osteoporosis International. Richard, 2014. DXA Scan Screening, Reporting (FRAX Score) and Follow-up. [place] of Knowledge Evidence - based Summaries. [facility] [place] [facility] for Education and Research 2017. Report Dictated on Final Dictating Physician: MD VOGT JAMES Signed Date and Time: 04/13/2021 12:02 pm Signed by: MD VOGT JAMES Transcribed Date and Time: 04/13/2021 12:04 Normal [facility] OT Bone Density DEXA Axial S steve 04-12-2021 OT Bone Density DEXA Axial Skeleton [facility]: [id number] Density ACCESSION EXAM DATE/TIME PROCEDURE ORDERING PROVIDER [id number] 04/12/2021 09:15 EST OT Bone Density DEXA DO BENITO RYAN D Axial Skeleton CPT code 67877 Reason For Exam (OT Bone Density DEXA Axial Skeleton) osteoporosis, at risk for osteoporosis. Report DXA BONE DENSITOMETRY: CLINICAL INDICATION: osteoporosis evaluation. elevated PTH. Screening for osteoporosis. COMPARISON: None TECHNIQUE: Quantitative bone mineral densitometry of the hip, radius and lumbar spine was performed with a dual energy x-ray observed absorptiometry device - two.42.solutionsigLiquid Light at some institutions, HOLOGIC at others. Regions of interest were obtained through the proximal femur and compared to the normal value of young adult women. Regions of interest were also obtained through the lumbar vertebrae with an average value determined and compared to the normal value of young adult women. The difference between your measured bone density and the bone density of a normal young woman is expressed in standard deviations as the T score. Similarly, your measured bone density is also compared to age and race matched values, and expressed in standard deviations as the Z score. According to World Health Organization criteria: T-score of -1.0 or higher is normal. T-score between -1.1 to < -2.5 is low bone density or osteopenia. T-score of -2.5 or lower is abnormally low, compatible with osteoporosis. T-score of -2.5 or less plus fragility fracture indicates severe osteoporosis. FINDINGS: Spine: L1-L4 Density 1.390 g/cm2 T-score: 2.7 Z-score: 3.3 Comparison from prior examination: N/A Femoral neck LEFT Density: 0.894 g/cm2 T-score: -0.3 Z-score: 0.7 Total Hip LEFT Density: 1.081 g/cm2 T-score: 0.3 Z-score: 0.8 Comparison from prior examination: N/A Bone Density Report FOREARM 33% Radius LEFT: BMD (gm/cm2): 0.796 T-Score: -0.4 Z-Score: 0.4 Total FOREARM LEFT: BMD (gm/cm2): 0.674 T-Score: -0.2 Z-Score: 0.5 Change Since Previous: N/A IMPRESSION: 1. No evidence of osteopenia or osteoporosis based on World Health Organization (WHO) criteria.. FRACTURE RISK: The estimated 10 year risk for a hip fracture is 0.2% and for a major osteoporosis-related fracture is 3.9%. (FRAX web version 3.11). RECOMMENDATIONS: General recommendations for prevention of bone loss include: 2673-5177 mg calcium intake per day for adults >50yrs, and no history of renal calculi 800-1000 IU of vitamin D3 per day for adults >50yrs, and no history of renal calculi Weight bearing exercise Discontinue smoking Avoid excessive use of caffeine, soft drinks, and alcoholic beverages In addition, balance training and fall prevention programs can help reduce the risk of fractures Pharmacologic treatment recommendations: Initiate pharmacologic treatment in patients with hip or vertebral fracture. In those with T scores by DXA In postmenopausal women and men age 50 or older with low bone mass (T score between -1.0 and -2.5 [osteopenia]) at the femoral neck, total hip, or lumbar spine by DXA have a 10 year hip fracture probability >/= 3% or a 10 year major osteoporosis-related fracture probability >/= 20% based on the [place]-adapted WHO fracture risk model (FRAX). Current FDA-approved pharmacologic options for osteoporosis treatment include bisphosphonates (Fosamax), ibandronate (Boniva), risedronate (Actonel), zoledronic acid (Reclast), estrogens and other hormonal therapies (Evista), parathyroid hormone (Forteo), and denosumab (Prolia). Initiation of pharmacologic therapy should happen only after thorough medical evaluation, discussion of risks and benefits, and with regular monitoring of the therapeutic regimen. Follow-up recommendations: Patients with osteoporosis or or at high risk for fracture should have follow-up bone density tests. For Medicare patients, routine testing is allowed every 2 years. Patients who have low bone mass (T score -2.0 to -2.49), who are currently on treatment for low bone mass, or having risk factors for accelerated bone loss (glucocorticoids, aromatase inhibitors, etc.), consider repeat DXA in 1-2 years. Patients with osteopenia and no risk factors may consider follow-up every 3-5 years. References: Bone Density Report National Osteoporosis Foundation. Clinician's Guide to Prevention and Treatment of Osteoporosis. Osteoporosis International. Richard, 2014. DXA Scan Screening, Reporting (FRAX Score) and Follow-up. [place] of Knowledge Evidence - based Summaries. [facility] [employer] Education and Research 2017. Report Dictated on Final Dictating Physician: MD VOGT JAMES Signed Date and Time: 04/13/2021 12:02 pm Signed by: MD VOGT JAMES Transcribed Date and Time: 04/13/2021 12:03 Normal [facility] Comprehensive Metabolic Pane sumeet 12-26-2018 Albumin [Mass/Vol] 4.8 g/dL 3.5 - 5 g/dL [place], [place] ALP [Catalytic activity/Vol] 51 U/L 38 - 126 U/L [place] ALT [Catalytic activity/Vol] 30 U/L 13 - 69 U/L [place] Anion gap [Moles/Vol] 8 mmol/L [place], [place] AST [Catalytic activity/Vol] 25 U/L 15 - 46 U/L [place] Bilirubin Ql (U) 0.4 mg/dL 0.2 - 1.3 mg/dL [place] Calcium [Mass/Vol] 11.3 mg/dL High 8.4 - 10. 4 mg/dL [place] Chloride [Moles/Vol] 108 mmol/L High 98 - 10 7 mmol/L [place] CO2 [Moles/Vol] 24 mmol/L 22 - 30 mmol/L [place] Creatinine [Mass/Vol] 1.23 mg/dL 0.52 - 1.25 mg/dL [place] EGFR IF NonAfrican [place] >60.0 >60 mL/min [place] Comment on above: Source- MDRD equatio n with creatinine calibration to IDMS(NKDEP) eGFR not recommended for drug dose adjustment GFR/1.73 sq M predicted among blacks MDRD (S/P/Bld) [Vol rate/Area] mL/min/{1.73_m2} >60 mL/min [place] Glucose [Mass/Vol] 104 mg/dL High 70 - 100 mg/dL [place] Interpretation and review of laboratory results Abnormal [place] Potassium [Moles/Vol] 4.3 mmol/L 3.5 - 5.1 mmol/L [place] Protein [Mass/Vol] 7.7 g/dL 6.3 - 8.2 g/dL [place] Sodium [Moles/Vol] 140 mmol/L 135 - 145 mmol/L [place] Urea nitrogen [Mass/Vol] 19 mg/dL 7 - 20 mg/dL [place] Test Performed by [facility], [address] , [address] Creatinine, 24 HR Urineon Creatinine, 24H Ur 1.8 g/(24.h) 1 - 1.8 g/(24.h) [place] Creatinine, Urine 94.3 mg/dL [place] Otheron 12-26-2018 Test Performed by [facility], [address] [place], [place] [address] [place] POCT calcium ionizedon 12-26 Interpretation and review of laboratory results Abnormal [place] PH, IONIZED CALCIUM 7.36 [place] POC Ionized Calcium 5.30 mg/dL High 4.3 - 5. 2 mg/dL [place], [place] Comment on above: Performed by [employer] ID : [id number] [facility] [place], [place] Test Performed by [facility], [address] , [address] PTH, [place] 12-26-2018 Pth Intact 27 pg/mL 15 - 63 pg/mL [place], [place] Test Performed by [facility], [address], [place], [place] [address] [facility] [place], [place] Prolactinon 12-26-2018 Prolactin 13.7 ng/mL 3.7 - 17.9 ng/mL [facility], [place] Test Performed by [facility], [address], [place], [place] [address] [facility], [place] Sodium, urine, 24 houron Interpretation and review of laboratory results Abnormal [place], [place] Sodium, 24H Ur 238 mmol/(24.h) High 40 - 220 mmol/(24.h) [facility] [place], [place] Total Volume 1950 mL [place], [place] T4, Freeon 12-26-2018 Free T4 [Mass/Vol] 0.87 ng/dL 0.78 - 2. 19 ng/dL [facility] [place] Test Performed by [facility], [address] , [address] TSH without Reflexon 019 TSH Qn 3.019 u[IU]/mL 0.465 - 4.68 u[IU]/mL [facility] [place], [place] Test Performed by [facility], [address] , [address] Vitamin D 25 Hydroxyon 12-26 Vit D, 25-Hydroxy 40 ng/mL 30 - 100 ng/mL [place], [place] Comment on above: Therapy is based on measurement of Total 25-OHD with the following classification levels: Less than 20 ng/mL: Indicative of Vit D deficiency 20-30 ng/mL: Suggests Vit D insufficiency Optimal: Greater than or equal to 30 ng/mL Test performed by [employer] Competitive Immunoassay, measuring Total Vitamin D, not individual fractions. Test Performed by [facility], [address], [place], [place] [id number] [place] [address], [place] Vital Signs Date Time Vital Sign Value Performing Clinician Joana beaulieu 05-28-2024 12:18-0400 Body height 187.96 cm Sanjana VENEGAS Work Phone: [facility] 05-28-2024 12:18-0400 Body temperature 97.9 [degF] Sanjana Ferullo DIVISION COMMANDER-C Work Phone: [facility] 05-28-2024 12:18-0400 Diastolic blood pressure 76 mm[Hg] Sanjana Garciao DIVISION COMMANDER[employer]C Work Phone: [facility] 05-28-2024 12:18-0400 Heart rate 80 /min Sanjana Garciao DIVISION COMMANDER-C Work Phone: [facility] 05-28-2024 12:18-0400 SaO2% (BldA) [Mass fraction] 95 % Sanjana Garciao DIVISION COMMANDER[employer]C Work Phone: [facility] 05-28-2024 12:18-0400 Systolic blood pressure 122 mm[Hg] Sanjana Garciao DIVISION COMMANDER-C Work Phone: [facility] 03-31-2024 10:21-0500 Body mass index (BMI) [Ratio] 30.5 kg/m2 Sanjana Garciao DIVISION COMMANDER-C Work Phone: [facility] 03-31-2024 10:21-0500 Body temperature 97 [degF] Sanjana Gillullo DIVISION COMMANDER-C Work Phone: [facility] 03-31-2024 10:21-0500 Body weight 107.95 kg Sanjana Garciao DIVISION COMMANDER-C Work Phone: [facility] 03-31-2024 10:21-0500 Diastolic blood pressure 68 mm[Hg] Sanjana Garciao DIVISION COMMANDER-C Work Phone: [facility] 03-31-2024 10:21-0500 Heart rate 67 /min Sanjana Garciao DIVISION COMMANDER-C Work Phone: [facility] 03-31-2024 10:21-0500 Respiratory rate 16 /min Sanjana Garciao DIVISION COMMANDER-C Work Phone: [facility] 03-31-2024 10:21-0500 SaO2% (BldA) [Mass fraction] 93 % Sanjana Garciao DIVISION COMMANDER-C Work Phone: [facility] 03-31-2024 10:21-0500 Systolic blood pressure 124 mm[Hg] Sanjana Gillgauravo DIVISION COMMANDER-C Work Phone: [facility] 03-18-2024 13:30-0500 Body temperature 98.2 [degF] Sanjanajazzy Gillullo DIVISION COMMANDER-C Work Phone: [facility] 03-18-2024 13:30-0500 Body weight 109.76 kg Sanjanajazzy Gillullo DIVISION COMMANDER-C Work Phone: [facility] 03-18-2024 13:30-0500 Diastolic blood pressure 77 mm[Hg] Sanjana Jairoullo DIVISION COMMANDER-C Work Phone: [facility] 03-18-2024 13:30-0500 Heart rate 76 /min Sanjana Jairoullo DIVISION COMMANDER-C Work Phone: [facility] 03-18-2024 13:30-0500 Respiratory rate 16 /min Sanjana Jairoullo DIVISION COMMANDER-C Work Phone: [facility] 03-18-2024 13:30-0500 SaO2% (BldA) [Mass fraction] 94 % Sanjana Jairoullo DIVISION COMMANDER-C Work Phone: [facility] 03-18-2024 13:30-0500 Systolic blood pressure 138 mm[Hg] Sanjanajazzy Gillullo DIVISION COMMANDER-C Work Phone: [facility] 02-25-2024 10:24-0500 Body mass index (BMI) [Ratio] 30.6 kg/m2 Sanjanajazzy Gillullo DIVISION COMMANDER-C Work Phone: [facility] 02-25-2024 10:24-0500 Body temperature 98.3 [degF] Sanjanajazzy Gillullo DIVISION COMMANDER-C Work Phone: [facility] 02-25-2024 10:24-0500 Body weight 108.12 kg Sanjana Jairoullo DIVISION COMMANDER-C Work Phone: [facility] 02-25-2024 10:24-0500 Diastolic blood pressure 84 mm[Hg] Sanjana Ferullo DIVISION COMMANDER-C Work Phone: [facility] 02-25-2024 10:24-0500 Heart rate 78 /min Sanjana Hale DIVISION COMMANDER-C Work Phone: [facility] 02-25-2024 10:24-0500 SaO2% (BldA) [Mass fraction] 96 % Sanjana Hale DIVISION COMMANDER-C Work Phone: [facility] 02-25-2024 10:24-0500 Systolic blood pressure 150 mm[Hg] Sanjana Hale DIVISION COMMANDER-C Work Phone: [facility] 07-31-2023 09:15-0400 Body height 188 cm Rocio Ruiz MD Work Phone: [facility] 07-31-2023 09:15-0400 Body mass index (BMI) [Ratio] 29.79 kg/m2 Rocio Ruiz MD Work Phone: [facility] 07-31-2023 09:15-0400 Body weight 105.23 kg Rocio Ruiz MD Work Phone: [facility] 07-31-2023 09:15-0400 Diastolic blood pressure 80 mm[Hg] Rocio Ruiz MD Work Phone: [facility] 07-31-2023 09:15-0400 Systolic blood pressure 118 mm[Hg] Rocio Ruiz MD Work Phone: [facility] 06-06-2023 10:56-0400 Body height 187.[address] Ryan Ceja Work Phone: [facility] 06-06-2023 10:56-0400 Body mass index (BMI) [Ratio] 30.4 kg/m2 Dr. Ryan Ceja Work Phone: [facility] 06-06-2023 10:56-0400 Body temperature 98.1 [degF] Dr. Ryan Ceja Work Phone: [facility] 06-06-2023 10:56-0400 Body weight 107.[address] Ryan Ceja Work Phone: [facility] 06-06-2023 10:56-0400 Diastolic blood pressure 80 mm[Hg] Dr. Ryan Ceja Work Phone: [facility] 06-06-2023 10:56-0400 Heart rate 77 /min Dr. Ryan Ceja Work Phone: [facility] 06-06-2023 10:56-0400 Respiratory rate 17 /min Dr. Ryan Ceja Work Phone: [facility] 06-06-2023 10:56-0400 SaO2% (BldA) [Mass fraction] 98 % Dr. Ryan Ceja Work Phone: [facility] 06-06-2023 10:56-0400 Systolic blood pressure 148 mm[Hg] Dr. Ryan Ceja Work Phone: [facility] 05-09-2023 15:00-0400 Body height 187.[address] Ryan Ceja Work Phone: [facility] 05-09-2023 15:00-0400 Body mass index (BMI) [Ratio] 30.8 kg/m2 Dr. Ryan Ceja Work Phone: [facility] 05-09-2023 15:00-0400 Body temperature 98.8 [degF] Dr. Ryan Ceja Work Phone: [facility] 05-09-2023 15:00-0400 Body weight 108.[address] Ryan Ceja Work Phone: [facility] 05-09-2023 15:00-0400 Diastolic blood pressure 62 mm[Hg] Dr. Ryan Ceja Work Phone: [facility] 05-09-2023 15:00-0400 Heart rate 74 /min Dr. Ryan Ceja Work Phone: [facility] 05-09-2023 15:00-0400 Respiratory rate 18 /min Dr. Ryan Ceja Work Phone: [facility] 05-09-2023 15:00-0400 SaO2% (BldA) [Mass fraction] 95 % Dr. Ryan Ceja Work Phone: [facility] 05-09-2023 15:00-0400 Systolic blood pressure 112 mm[Hg] Dr. Ryan Ceja Work Phone: [facility] 03-21-2023 08:44-0500 Body height 187.[address] Ryan Ceja Work Phone: [facility] 03-21-2023 08:44-0500 Body mass index (BMI) [Ratio] 30.4 kg/m2 Dr. Ryan Ceja Work Phone: [facility] 03-21-2023 08:44-0500 Body temperature 97.2 [degF] Dr. Rayn Ceja Work Phone: [facility] 03-21-2023 08:44-0500 Body weight 107.[address] Ryan Ceja Work Phone: [facility] 03-21-2023 08:44-0500 Diastolic blood pressure 60 mm[Hg] Dr. Ryan Ceja Work Phone: [facility] 03-21-2023 08:44-0500 Heart rate 84 /min Dr. Ryan Ceja Work Phone: [facility] 03-21-2023 08:44-0500 Respiratory rate 16 /min Dr. Ryan Ceja Work Phone: [facility] 03-21-2023 08:44-0500 SaO2% (BldA) [Mass fraction] 98 % Dr. Ryan Ceja Work Phone: [facility] 03-21-2023 08:44-0500 Systolic blood pressure 138 mm[Hg] Dr. Ryan Ceja Work Phone: [facility] 03-06-2023 14:40-0500 Diastolic blood pressure 79 mm[Hg] Dr. Ryan Ceja Work Phone: [facility] 03-06-2023 14:40-0500 Systolic blood pressure 128 mm[Hg] Dr. Ryan Ceja Work Phone: [facility] 03-06-2023 14:19-0500 Body temperature 98 [degF] Dr. Ryan Ceja Work Phone: [facility] 03-06-2023 14:19-0500 Body weight 107.[address] Ryan Ceja Work Phone: [facility] 03-06-2023 14:19-0500 Heart rate 94 /min Dr. Ryan Ceja Work Phone: [facility] 03-06-2023 14:19-0500 Respiratory rate 16 /min Dr. Ryan Ceja Work Phone: [facility] 03-06-2023 14:19-0500 SaO2% (BldA) [Mass fraction] 98 % Dr. Ryan Ceja Work Phone: [facility] 02-20-2023 10:31-0500 Body temperature 98.4 [degF] Dr. Ryan Ceja Work Phone: [facility] 02-20-2023 10:31-0500 Body weight 109.[address] Ryan Ceja Work Phone: [facility] 02-20-2023 10:31-0500 Diastolic blood pressure 88 mm[Hg] Dr. Ryan Ceja Work Phone: [facility] 02-20-2023 10:31-0500 Heart rate 83 /min Dr. Ryan Ceja Work Phone: [facility] 02-20-2023 10:31-0500 Respiratory rate 16 /min Dr. Ryan Ceja Work Phone: [facility] 02-20-2023 10:31-0500 SaO2% (BldA) [Mass fraction] 97 % Dr. Ryan Ceja Work Phone: [facility] 02-20-2023 10:31-0500 Systolic blood pressure 144 mm[Hg] Dr. Ryan Ceja Work Phone: [facility] 02-13-2023 16:20-0500 Body temperature 97.8 [degF] Dr. Ryan Ceja Work Phone: [facility] 02-13-2023 16:20-0500 Diastolic blood pressure 68 mm[Hg] Dr. Ryan Ceja Work Phone: [facility] 02-13-2023 16:20-0500 Heart rate 60 /min Dr. Ryan Ceja Work Phone: [facility] 02-13-2023 16:20-0500 Respiratory rate 18 /min Dr. Ryan Ceja Work Phone: [facility] 02-13-2023 16:20-0500 SaO2% (BldA) [Mass fraction] 99 % Dr. Ryan Ceja Work Phone: [facility] 02-13-2023 16:20-0500 Systolic blood pressure 125 mm[Hg] Dr. Ryan Ceja Work Phone: [facility] 02-12-2023 06:38-0500 Body height 187.[address] Ryan Ceja Work Phone: [facility] 02-12-2023 06:38-0500 Body mass index (BMI) [Ratio] 31.1 kg/m2 Dr. Ryan Ceja Work Phone: [facility] 02-12-2023 06:38-0500 Body weight [address] Ryan Ceja Work Phone: [facility] 01-31-2023 14:32-0500 Body height 187.[address] Ryan Ceja Work Phone: [facility] 01-31-2023 14:32-0500 Body mass index (BMI) [Ratio] 30.7 kg/m2 Dr. Ryan Ceja Work Phone: [facility] 01-31-2023 14:32-0500 Body temperature 98.2 [degF] Dr. Ryan Ceja Work Phone: [facility] 01-31-2023 14:32-0500 Body weight 108.[address] Ryan Ceja Work Phone: [facility] 01-31-2023 14:32-0500 Diastolic blood pressure 74 mm[Hg] Dr. Ryan Ceja Work Phone: [facility] 01-31-2023 14:32-0500 Heart rate 73 /min Dr. Ryan Ceja Work Phone: [facility] 01-31-2023 14:32-0500 Respiratory rate 18 /min Dr. Ryan Ceja Work Phone: [facility] 01-31-2023 14:32-0500 SaO2% (BldA) [Mass fraction] 97 % Dr. Ryan Ceja Work Phone: [facility] 01-31-2023 14:32-0500 Systolic blood pressure 123 mm[Hg] Dr. Ryan Ceja Work Phone: [facility] 01-02-2023 10:40-0500 Body height 188 cm Rocio Ruiz MD Work Phone: [facility] 01-02-2023 10:40-0500 Body mass index (BMI) [Ratio] 31.2 kg/m2 Rocio Ruiz MD Work Phone: [facility] 01-02-2023 10:40-0500 Body weight 110.22 kg Rocio Ruiz MD Work Phone: [facility] 01-02-2023 10:40-0500 Diastolic blood pressure 62 mm[Hg] Rocio Ruiz MD Work Phone: [facility] 01-02-2023 10:40-0500 Heart rate 80 /min Rocio Ruiz MD Work Phone: [facility] 01-02-2023 10:40-0500 Systolic blood pressure 122 mm[Hg] Rocio Ruiz MD Work Phone: [facility] 01-02-2023 08:40-0500 Body height 188 cm Jacob Arauz MD Work Phone: [facility] 01-02-2023 08:40-0500 Body mass index (BMI) [Ratio] 30.17 kg/m2 Jacob Arauz MD Work Phone: [facility] 01-02-2023 08:40-0500 Body weight 106.59 kg Jacob Arauz MD Work Phone: [facility] 12-25-2022 19:57-0400 Diastolic blood pressure 74 mm[Hg] Pacheco Ortiz MD Work Phone: [facility] 12-25-2022 19:57-0400 Heart rate 83 /min Pacheco Ortiz MD Work Phone: [facility] 12-25-2022 19:57-0400 Respiratory rate 20 /min Pacheco Ortiz MD Work Phone: [facility] 12-25-2022 19:57-0400 SaO2% (BldA) [Mass fraction] 96 % Pacheco Ortiz MD Work Phone: [facility] 12-25-2022 19:57-0400 Systolic blood pressure 154 mm[Hg] Pacheco Ortiz MD Work Phone: [facility] 12-25-2022 18:53-0400 Body height 188 cm Pacheco Ortiz MD Work Phone: [facility] 12-25-2022 18:53-0400 Body mass index (BMI) [Ratio] 30.94 kg/m2 Pacheco Ortiz MD Work Phone: [facility] 12-25-2022 18:53-0400 Body temperature 98.01 [degF] Pacheco Ortiz MD Work Phone: [facility] 12-25-2022 18:53-0400 Body weight 109.32 kg Pacheco Ortiz MD Work Phone: [facility] 12-25-2022 16:45-0400 Diastolic blood pressure 80 mm[Hg] Jacob Arauz MD Work Phone: [facility] 12-25-2022 16:45-0400 Heart rate 66 /min Jacob Arauz MD Work Phone: [facility] 12-25-2022 16:45-0400 Respiratory rate 16 /min Jacob Arauz MD Work Phone: [facility] 12-25-2022 16:45-0400 SaO2% (BldA) [Mass fraction] 96 % Jacob Arauz MD Work Phone: [facility] 12-25-2022 16:45-0400 Systolic blood pressure 132 mm[Hg] Jacob Arauz MD Work Phone: [facility] 12-25-2022 08:28-0400 Body height 188 cm Jacob Arauz MD Work Phone: [facility] 12-25-2022 08:28-0400 Body mass index (BMI) [Ratio] 30.94 kg/m2 Jacob Arauz MD Work Phone: [facility] 12-25-2022 08:28-0400 Body temperature 97 [degF] Jacob Arauz MD Work Phone: [facility] 12-25-2022 08:28-0400 Body weight 109.32 kg Jacob Arauz MD Work Phone: [facility] 12-22-2022 10:17-0400 Diastolic blood pressure 85 mm[Hg] Pacheco Negron MD Work Phone: [facility] 12-22-2022 10:17-0400 Heart rate 50 /min Pacheco Negron MD Work Phone: [facility] 12-22-2022 10:17-0400 Respiratory rate 16 /min Pacheco Negron MD Work Phone: [facility] 12-22-2022 10:17-0400 SaO2% (BldA) [Mass fraction] 98 % Pacheco Negron MD Work Phone: [facility] 12-22-2022 10:17-0400 Systolic blood pressure 148 mm[Hg] Pacheco Negron MD Work Phone: [facility] 12-22-2022 08:04-0400 Body mass index (BMI) [Ratio] 30.94 kg/m2 Pacheco Negron MD Work Phone: [facility] 12-22-2022 08:04-0400 Body temperature 97.2 [degF] Pacheco Negron MD Work Phone: [facility] 12-22-2022 08:04-0400 Body weight 109.32 kg Pacheco Negron MD Work Phone: [facility] 12-07-2022 15:23-0400 Body temperature 97.59 [degF] Yolanda Voll DO Work Phone: [facility] 12-07-2022 15:23-0400 Diastolic blood pressure 64 mm[Hg] Yolanda Voll DO Work Phone: [facility] 12-07-2022 15:23-0400 Heart rate 62 /min Yolanda Voll DO Work Phone: [facility] 12-07-2022 15:23-0400 Respiratory rate 16 /min Yolanda Voll DO Work Phone: [facility] 12-07-2022 15:23-0400 SaO2% (BldA) [Mass fraction] 95 % Yolanda Voll DO Work Phone: [facility] 12-07-2022 15:23-0400 Systolic blood pressure 110 mm[Hg] Yolanda Voll DO Work Phone: [facility] 12-07-2022 09:19-0400 Body height 188 cm Yolanda Voll DO Work Phone: [facility] 12-07-2022 09:19-0400 Body mass index (BMI) [Ratio] 30.81 kg/m2 Yolanda Patel DO Work Phone: [facility] 12-07-2022 09:19-0400 Body weight 108.86 kg Yolanda Patel DO Work Phone: [facility] 11-14-2022 10:54-0400 Body mass index (BMI) [Ratio] 31.3 kg/m2 Cheryl Basilio MD Work Phone: [facility] 11-14-2022 10:54-0400 Body weight 110.59 kg Cheryl Basilio MD Work Phone: [facility] 11-14-2022 10:54-0400 Diastolic blood pressure 84 mm[Hg] Cheryl Basilio MD Work Phone: [facility] 11-14-2022 10:54-0400 Heart rate 91 /min Cheryl Basilio MD Work Phone: [facility] 11-14-2022 10:54-0400 SaO2% (BldA) [Mass fraction] 94 % Cheryl Basilio MD Work Phone: [facility] 11-14-2022 10:54-0400 Systolic blood pressure 137 mm[Hg] Cheryl Basilio MD Work Phone: [facility] 10-16-2022 07:25-0400 Body temperature 98.2 [degF] Natacha Waddellffey DO Work Phone: [facility] 10-16-2022 07:25-0400 Diastolic blood pressure 92 mm[Hg] Natacha Skiffey DO Work Phone: [facility] 10-16-2022 07:25-0400 Heart rate 68 /min Natacha Skiffey DO Work Phone: [facility] 10-16-2022 07:25-0400 Respiratory rate 17 /min Natacha Skiffey DO Work Phone: [facility] 10-16-2022 07:25-0400 SaO2% (BldA) [Mass fraction] 97 % Natacha Skiffey DO Work Phone: [facility] 10-16-2022 07:25-0400 Systolic blood pressure 148 mm[Hg] Natacha Frankel DO Work Phone: [facility] 10-12-2022 16:15-0400 Diastolic blood pressure 72 mm[Hg] Pacheco Negron MD Work Phone: [facility] 10-12-2022 16:15-0400 Respiratory rate 16 /min Pacheco Negron MD Work Phone: [facility] 10-12-2022 16:15-0400 SaO2% (BldA) [Mass fraction] 98 % Pacheco Negron MD Work Phone: [facility] 10-12-2022 16:15-0400 Systolic blood pressure 138 mm[Hg] Pacheco Negron MD Work Phone: [facility] 10-12-2022 13:36-0400 Body mass index (BMI) [Ratio] 30.17 kg/m2 Pacheco Negron MD Work Phone: [facility] 10-12-2022 13:36-0400 Body temperature 97.81 [degF] Pacheco Negron MD Work Phone: [facility] 10-12-2022 13:36-0400 Body weight 106.59 kg Pacheco Negron MD Work Phone: [facility] 10-12-2022 13:36-0400 Heart rate 91 /min Pacheco Negron MD Work Phone: [facility] 10-11-2022 08:27-0400 Body height 188 cm Cheryl Basilio MD Work Phone: [facility] [place] 10-11-2022 08:27-0400 Body mass index (BMI) [Ratio] 29.89 kg/m2 Cheryl Basilio MD Work Phone: [facility] [place] 10-11-2022 08:27-0400 Body weight 105.6 kg Cheryl Basilio MD Work Phone: [facility] 10-11-2022 08:27-0400 Diastolic blood pressure 68 mm[Hg] Cheryl Basilio MD Work Phone: [facility] 10-11-2022 08:27-0400 Heart rate 76 /min Cheryl Basilio MD Work Phone: [facility] [place] 10-11-2022 08:27-0400 SaO2% (BldA) [Mass fraction] 93 % Cheryl Basilio MD Work Phone: [facility] [place] 10-11-2022 08:27-0400 Systolic blood pressure 122 mm[Hg] Cheryl Basilio MD Work Phone: [facility] [place] 10-10-2022 12:42-0400 Body height 188 cm Donna Roberts DO Work Phone: [facility] 10-10-2022 12:42-0400 Body mass index (BMI) [Ratio] 30.15 kg/m2 Donna Roberst DO Work Phone: [facility] 10-10-2022 12:42-0400 Body weight 106.5 kg Donna Roberts DO Work Phone: [facility] 10-10-2022 12:42-0400 Diastolic blood pressure 74 mm[Hg] Donna Roberts DO Work Phone: [facility] 10-10-2022 12:42-0400 Heart rate 78 /min Donna Roberts DO Work Phone: [facility] [place] 10-10-2022 12:42-0400 Respiratory rate 18 /min Donna Carreoniuk DO Work Phone: [facility] 10-10-2022 12:42-0400 SaO2% (BldA) [Mass fraction] 93 % Donna Roberts DO Work Phone: [facility] Comment on above: Room air at rest 10-10-2022 12:42-0400 Systolic blood pressure 108 mm[Hg] Donna Carreoniuk DO Work Phone: [facility] 09-13-2022 11:46-0400 Body mass index (BMI) [Ratio] 30.53 kg/m2 Dino Bridenthal CIVIL DEFENSE DIRECTOR - ALTITUDE CHAMBER TECHNICIAN Work Phone: [facility] 09-13-2022 11:46-0400 Body temperature 98.2 [degF] Dino Bridenthal CIVIL DEFENSE DIRECTOR - ALTITUDE CHAMBER TECHNICIAN Work Phone: [facility] 09-13-2022 11:46-0400 Body weight 107.86 kg Dino Bridenthal CIVIL DEFENSE DIRECTOR - ALTITUDE CHAMBER TECHNICIAN Work Phone: [facility] 09-13-2022 11:46-0400 Diastolic blood pressure 80 mm[Hg] Dino Bridenthal CIVIL DEFENSE DIRECTOR - ALTITUDE CHAMBER TECHNICIAN Work Phone: [facility] 09-13-2022 11:46-0400 Heart rate 68 /min Dino Bridenthal CIVIL DEFENSE DIRECTOR - ALTITUDE CHAMBER TECHNICIAN Work Phone: [facility] 09-13-2022 11:46-0400 Respiratory rate 20 /min Dino Bridenthal CIVIL DEFENSE DIRECTOR - ALTITUDE CHAMBER TECHNICIAN Work Phone: [facility] 09-13-2022 11:46-0400 Systolic blood pressure 138 mm[Hg] Dino Bridenthal CIVIL DEFENSE DIRECTOR - ALTITUDE CHAMBER TECHNICIAN Work Phone: [facility] 08-17-2022 08:17-0400 Body height 188 cm Ventura Rivas CIVIL DEFENSE DIRECTOR - ALTITUDE CHAMBER TECHNICIAN Work Phone: [facility] 08-17-2022 08:17-0400 Body mass index (BMI) [Ratio] 30.3 kg/m2 Ventura Rob CIVIL DEFENSE DIRECTOR - ALTITUDE CHAMBER TECHNICIAN Work Phone: [facility] 08-17-2022 08:17-0400 Body weight 107.05 kg Ventura Rob CIVIL DEFENSE DIRECTOR - ALTITUDE CHAMBER TECHNICIAN Work Phone: [facility] 08-17-2022 08:17-0400 Diastolic blood pressure 76 mm[Hg] Ventura Rivas CIVIL DEFENSE DIRECTOR - ALTITUDE CHAMBER TECHNICIAN Work Phone: [facility] 08-17-2022 08:17-0400 Heart rate 59 /min Ventura Rivas CIVIL DEFENSE DIRECTOR - ALTITUDE CHAMBER TECHNICIAN Work Phone: [facility] 08-17-2022 08:17-0400 SaO2% (BldA) [Mass fraction] 98 % Ventura Rivas CIVIL DEFENSE DIRECTOR - ALTITUDE CHAMBER TECHNICIAN Work Phone: [facility] 08-17-2022 08:17-0400 Systolic blood pressure 122 mm[Hg] Ventura Rivas CIVIL DEFENSE DIRECTOR - ALTITUDE CHAMBER TECHNICIAN Work Phone: [facility] 06-19-2022 13:48-0400 Body height 188 cm Lake Perales MD Work Phone: [facility] 06-19-2022 13:48-0400 Body mass index (BMI) [Ratio] 30.66 kg/m2 Lake Perales MD Work Phone: [facility] 06-19-2022 13:48-0400 Body weight 108.32 kg Lake Perales MD Work Phone: [facility] 06-19-2022 13:48-0400 Diastolic blood pressure 82 mm[Hg] Lake Perales MD Work Phone: [facility] 06-19-2022 13:48-0400 Heart rate 75 /min Lake Perales MD Work Phone: [facility] 06-19-2022 13:48-0400 Systolic blood pressure 139 mm[Hg] Lake Perales MD Work Phone: [facility] 05-17-2022 11:46-0400 Diastolic blood pressure 67 mm[Hg] Lake Perales MD Work Phone: [facility] 05-17-2022 11:46-0400 Heart rate 67 /min Lake Perales MD Work Phone: [facility] 05-17-2022 11:46-0400 Respiratory rate 20 /min Lake Perales MD Work Phone: [facility] 05-17-2022 11:46-0400 Systolic blood pressure 122 mm[Hg] Lake Perales MD Work Phone: [facility] [place] 03-06-2022 14:46-0500 Body height 188 cm Lake Perales MD Work Phone: [facility] [place] 03-06-2022 14:46-0500 Body mass index (BMI) [Ratio] 30.4 kg/m2 Lake Perales MD Work Phone: [facility] [place] 03-06-2022 14:46-0500 Body weight 107.41 kg Lake Perales MD Work Phone: [facility] [place] 03-06-2022 14:46-0500 Diastolic blood pressure 72 mm[Hg] Lake Perales MD Work Phone: [facility] [place] 03-06-2022 14:46-0500 Heart rate 74 /min Lake Perales MD Work Phone: [facility] [place] 03-06-2022 14:46-0500 Systolic blood pressure 120 mm[Hg] Lake Perales MD Work Phone: [facility] 02-27-2022 14:16-0500 Body temperature 97.7 [degF] Dino Bridenthal CIVIL DEFENSE DIRECTOR - ALTITUDE CHAMBER TECHNICIAN Work Phone: [facility] [place] 02-27-2022 14:16-0500 Diastolic blood pressure 80 mm[Hg] Dino Bridenthal CIVIL DEFENSE DIRECTOR - ALTITUDE CHAMBER TECHNICIAN Work Phone: [facility] 02-27-2022 14:16-0500 Systolic blood pressure 138 mm[Hg] Dino Bridenthal CIVIL DEFENSE DIRECTOR - ALTITUDE CHAMBER TECHNICIAN Work Phone: [facility] [place] 02-27-2022 13:35-0500 Body mass index (BMI) [Ratio] 30.17 kg/m2 Dino Bridenthal CIVIL DEFENSE DIRECTOR - ALTITUDE CHAMBER TECHNICIAN Work Phone: [facility] [place] 02-27-2022 13:35-0500 Body weight 106.59 kg Dino Bridenthal CIVIL DEFENSE DIRECTOR - ALTITUDE CHAMBER TECHNICIAN Work Phone: [facility] 02-27-2022 13:35-0500 Heart rate 69 /min Dino Bridenthal CIVIL DEFENSE DIRECTOR - ALTITUDE CHAMBER TECHNICIAN Work Phone: [facility] 12-05-2021 20:43-0400 Body temperature 98.1 [degF] Barry Leon MD Work Phone: [facility] 12-05-2021 20:43-0400 Diastolic blood pressure 85 mm[Hg] Barry Leon MD Work Phone: [facility] 12-05-2021 20:43-0400 Heart rate 68 /min Barry Leon MD Work Phone: [facility] 12-05-2021 20:43-0400 Respiratory rate 18 /min Barry Leon MD Work Phone: [facility] 12-05-2021 20:43-0400 SaO2% (BldA) [Mass fraction] 94 % Barry Leon MD Work Phone: [facility] 12-05-2021 20:43-0400 Systolic blood pressure 145 mm[Hg] Barry Leon MD Work Phone: [facility] 12-01-2021 10:17-0400 Body height 188 cm Barry Leon MD Work Phone: [facility] 12-01-2021 10:17-0400 Body mass index (BMI) [Ratio] 30.3 kg/m2 Barry Leon MD Work Phone: [facility] 12-01-2021 10:17-0400 Body weight 107.05 kg Barry Leon MD Work Phone: [facility] 11-27-2021 23:28-0400 Diastolic blood pressure 78 mm[Hg] Zheng Spence MD Work Phone: [facility] 11-27-2021 23:28-0400 Heart rate 83 /min Zheng Spence MD Work Phone: [facility] 11-27-2021 23:28-0400 Respiratory rate 16 /min Zheng Spence MD Work Phone: [facility] 11-27-2021 23:28-0400 SaO2% (BldA) [Mass fraction] 97 % Zheng Spence MD Work Phone: [facility] 11-27-2021 23:28-0400 Systolic blood pressure 127 mm[Hg] Zheng Spence MD Work Phone: [facility] 11-27-2021 20:34-0400 Body height 188 cm Zheng Spence MD Work Phone: [facility] 11-27-2021 20:34-0400 Body mass index (BMI) [Ratio] 29.53 kg/m2 Zheng Spence MD Work Phone: [facility] 11-27-2021 20:34-0400 Body temperature 98.2 [degF] Zheng Spence MD Work Phone: [facility] 11-27-2021 20:34-0400 Body weight 104.33 kg Zheng Spence MD Work Phone: [facility] Encounters Encounter Date Encounter Type Care Provider Facility Start: 07-17-2024 End: 07-17-2024 ambulatory Justice Bailey Facility[place] [place] Start: 07-01-2024 ambulatory Estefany Gonzalez Facility:[facility] [place] Start: 05-28-2024 End: 05-28-2024 Patient encounter procedure Stanislaw SHAFFER -[facility] Work Phone: Start: 05-28-2024 End: 05-28-2024 ambulatory Sanjana Hale DIVISION COMMANDER-C Work Phone: [facility] Work Phone: Start: 05-28-2024 End: 05-28-2024 ambulatory Justice Bailey Facility:[facility] Start: 05-14-2024 Non-patient / [facility] Start: 05-14-2024 ambulatory Yolanda SHAFFER Facilit y:[facility] Start: 04-20-2024 End: 04-20-2024 ambulatory SANJANA HALE APRN-ALTITUDE CHAMBER TECHNICIAN Facility:[facility] Start: 04-20-2024 End: 04-20-2024 Patient encounter procedure BASIM RAMSEY MD [facility] Start: 04-13-2024 ambulatory Dolly Clarke Facility:[facility] Start: 04-13-2024 Non-patient / Non-visit Dr. Ryan adams MD -[facility] Start: 04-13-2024 End: 04-13-2024 Patient encounter procedure Dolly SHAFFER [facility] Work Phone: Start: 04-13-2024 End: 04-13-2024 ambulatory Dolly Clarke Facility:[facility] Start: 03-31-2024 End: 03-31-[address] Justice Issa DO -[facility] Work Phone: Start: 03-31-2024 End: 03-31-2024 ambulatory Justice Bailey Facility:[facility] Start: 03-18-2024 End: 03-18-2024 Patient encounter procedure Dolly SHAFFER -[facility] Work Phone: Start: 03-18-2024 End: 03-18-2024 ambulatory Dolly Clarke Facility:[facility] Start: 02-25-2024 End: 02-25-2024 Patient encounter procedure David SHAFFER -[facility] Work Phone: Start: 02-25-2024 End: 02-25-2024 ambulatory David SHAFFER Facility:[facility] Start: 01-03-2024 End: 01-03-2024 ambulatory BASIM RAMSEY MD Facility:[facility] Start: 01-03-2024 End: 01-03-2024 Patient encounter procedure BASIM RAMSEY MD [facility] Start: 12-23-2023 End: 12-23-2023 ambulatory Sanjana Hale Facility:[facility] Start: 10-15-2023 End: 10-15-2023 ambulatory Justice Bailey Facility:[facility] Start: 10-10-2023 End: 10-10-2023 ambulatory Justice Bailey Facility:[facility] Start: 09-20-2023 End: 09-20-2023 ambulatory Sanjana Hale Facility:[facility] Start: 09-16-2023 End: 09-16-2023 Subsequent hospital visit by physician Rocio Ruiz MD Work Phone: [facility] Comment on above: Pituitary adenoma (H CC) Start: 09-16-2023 End: 09-16-2023 [facility] Start: 08-01-2023 Telephone encounter Rocio Ruiz MD Work Phone: [facility] Comment on above: Results Start: 07-31-2023 End: 07-31-2023 Office outpatient visit 25 minutes Rocio Ruiz MD Work Phone: [facility] Comment on above: Pituitary adenoma (H CC) (Primary Dx); Hypercalcemia; 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; Hypogonadotropic hypogonadism (HCC) Start: 07-31-2023 End: 07-31-2023 ambulatory SILVESTRE SEXTON [facility] Start: 06-21-2023 End: 06-21-2023 ambulatory DIVISION COMMANDER-C Sanjana Hale Work Phone: [facility] Work Phone: Start: 06-21-2023 End: 06-21-2023 Patient encounter procedure DIVISION COMMANDER-C Sanjanajazzy Hale Work Phone: [facility]-Cat Scan, [facility] Work Phone: Start: 06-19-2023 Telephone encounter Donna Roberts DO Work [facility]: [facility] [facility] Start: 06-18-2023 End: 06-18-2023 ambulatory DIVISION COMMANDER-C Sanjana Hale Work Phone: [facility] Work Phone: Start: 06-18-2023 End: 06-18-2023 Patient encounter procedure DIVISION COMMANDER-C Sanjanajazzy Gillvaibhav Work Phone: [facility]-Ultrasound, [facility] Work Phone: Start: 06-10-2023 End: 06-10-2023 ambulatory DIVISION COMMANDER-C Sanjana Hale Work Phone: [facility] Work Phone: Start: 06-10-2023 End: 06-10-[address] Ryan Ceja Work Phone: [facility]-Laboratory Work Phone: Start: 06-06-2023 End: 06-06-[address] Ryan Ceja Work Phone: [facility] Work Phone: Start: 06-06-2023 End: 06-06-[address] Ryan Ceja Work Phone: [facility] Internal Medicine Work Phone: Start: 05-28-2023 End: 05-28-[address] Ryan Ceja Work Phone: [facility] Work Phone: Start: 05-28-2023 End: 05-28-[address] Ryan eCja Work Phone: [facility] Internal Medicine Work Phone: Start: 05-09-2023 End: 05-09-[address] Ryan Ceja Work Phone: [facility] Work Phone: Start: 05-09-2023 End: 05-09-[address] [facility] Work [facility] Start: 05-09-2023 End: 05-09-[address] Ryan Ceja Work Phone: [facility] Internal Medicine Work Phone: Start: 04-21-2023 Refill Isa Dubois er DIVISION COMMANDER Work Phone: [facility] Internal Medicine Start: 04-01-2023 Refill Isa Dubois er DIVISION COMMANDER Work Phone: [facility] Internal Medicine Start: 03-21-2023 End: 03-21-[address] Ryan Ceja Work Phone: [facility] Work Phone: Start: 03-21-2023 End: 03-21-[address] Ryan Ceja Work Phone: [facility]-Laboratory, [place] Start: 03-21-2023 End: 03-21-[address] Ryan Ceja Work Phone: [facility] Internal Medicine Work Phone: Start: 03-06-2023 End: 03-06-[address] Ryan Ceja Work Phone: [facility] Vascular Surgery Work Phone: Start: 02-20-2023 End: 02-20-[address] Ryan Ceja Work Phone: [facility] Vascular Surgery Work Phone: Start: 02-13-2023 Non-patient / Non-visit Dr. Kelvin Ceja Work Phone: [facility] Start: 02-12-2023 Non-patient / Non-visit Dr. Kelvin Ceja Work Phone: [facility] Start: 02-12-2023 End: 02-13-2023 Evaluation and management of inpatient Dr. Ryan Ceja Work Phone: [facility]-Progressive Care Unit Work Phone: Start: 02-12-2023 End: 02-13-[address] Ryan Ceja Work Phone: [facility] Work Phone: Start: 02-07-2023 End: 02-07-2023 Non-patient / Non-visit Dr. Ryan Ceja Work Phone: [facility] Work Phone: Start: 02-07-2023 End: 02-07-[address] Ryan Ceja Work Phone: [facility] Work Phone: Start: 02-07-2023 End: 02-07-[address] Ryan Ceja Work Phone: [facility] Work Phone: Start: 02-05-2023 Non-patient / Non-visit Dr. Kelvin Ceja Work Phone: [facility] Start: 02-05-2023 End: 02-05-[address] Ryan Ceja Work Phone: [facility] Work Phone: Start: 02-05-2023 End: 02-05-[address] Ryan Ceja Work Phone: [facility]-Cardiovascu lar Services Work Phone: Start: 01-31-2023 End: 01-31-[address] Ryan Ceja Work Phone: [facility] Vascular Surgery Work Phone: Start: 01-30-2023 Refill Cheryl centeno MD Work Phone: [facility] Internal Medicine Start: 01-25-2023 Telephone encounter Rocio Ruiz MD Work Phone: [facility] Endocrinology Comment on above: To Dr Ruiz Start: 01-04-2023 Telephone encounter Rocio Ruiz MD Work Phone: [facility] Endocrinology Comment on above: Medication Problem Start: 01-03-2023 End: 01-03-2023 ambulatory [facility] Start: 01-02-2023 Telephone encounter Daphne Hayden Lisbet [facility] Endocrinology Comment on above: Chet Lowry refuses to fill script Start: 01-02-2023 End: 01-02-2023 Office outpatient visit 25 minutes Rocio Ruiz MD Work Phone: [facility] Endocrinology Comment on above: Macroprolactinoma (H CC) (Primary Dx); Pituitary adenoma (HCC); 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 ED Comment on above: Bleeding (Primary Dx ) Start: 12-25-2022 End: 12-25-2022 ambulatory CHERYL BASILIO [facility] Start: 12-25-2022 End: 12-25-2022 Subsequent hospital visit by physician Jacob Arauz MD Work Phone: [facility] MAIN OR Comment on above: Sebaceous cyst of le ft eyelid (Primary Dx) Start: 12-22-2022 ambulatory [facility] ical Communication Start: 12-22-2022 Patient encounter procedure Farzana Six RN [facility] Clinical Communication Start: 12-22-2022 End: 12-22-2022 Emergency department patient visit Pacheco Negron MD Work Phone: [facility] ED Comment on above: Acute right flank pa in (Primary Dx) Start: 12-21-2022 End: 12-21-[address] [facility] Start: 12-21-2022 End: 12-21-2022 Subsequent hospital visit by physician Cheryl Basilio MD Work Phone: [facility] X-ray Imaging Comment on above: Right flank pain Start: 12-21-2022 End: 12-21-[address] [facility] Start: 12-17-2022 Telephone encounter Dat Talbot RN [facility] Clinical Communication Comment on above: Advice Only Start: 12-17-2022 End: 12-17-[address] [facility] Start: 12-13-2022 End: 12-13-[address] [facility] Start: 12-13-2022 End: 12-13-2022 Encounter for other [facility]procedural examination [facility] Start: 12-12-2022 ambulatory Aure Delgado CIVIL DEFENSE DIRECTOR - ALTITUDE CHAMBER TECHNICIAN Work Phone: [facility] Vascular Center Start: 12-11-2022 End: 12-11-2022 Subsequent hospital visit by physician Jacob Arauz MD Work Phone: [facility] Vascular Lab Comment on above: Arrived Start: 12-11-2022 End: 12-11-[address] [facility] Start: 12-10-2022 End: 12-10-2022 [facility] Start: 12-07-2022 End: 12-07-2022 Emergency department patient visit Yolanda Amanda LOAIZA Work Phone: [facility] EMERGENCY DEPT Comment on above: Deep vein thrombosis (DVT) of proximal vein of left lower extremity, unspecified chronicity (HCC) (Primary Dx) Start: 12-03-2022 Orders Only Cheryl centeno MD Work Phone: [facility] Internal Medicine Comment on above: Acute deep vein thro mbosis (DVT) of left lower extremity, unspecified vein (HCC) (Primary Dx) Start: 11-15-2022 ambulatory Dat Talbot RN [facility] Clinical Communication Start: 11-15-2022 Patient encounter procedure Dat Talbot RN [facility] Clinical Communication Start: 11-15-2022 Telephone encounter Farzana Samaniego RN [facility] Clinical Communication Comment on above: Results (/) Start: 11-14-2022 End: 11-14-2022 Subsequent hospital visit by physician Cheryl Basilio MD Work Phone: [facility] Vascular Lab Comment on above: Acute deep vein thro mbosis (DVT) of left lower extremity, unspecified vein (HCC) Start: 11-14-2022 ambulatory Natacha Barry RN [facility] Clinical Communication Start: 11-14-2022 Patient encounter procedure Natacha francisco RN [facility] Clinical Communication Start: 11-14-2022 End: 11-14-2022 Office outpatient visit 15 minutes Cheryl Basilio MD Work Phone: [facility] Internal Medicine Comment on above: Acute deep vein thro mbosis (DVT) of left lower extremity, unspecified vein (HCC) (Primary Dx) Start: 11-13-2022 [facility] Start: 11-13-2022 Patient encounter procedure Khalida herring RN [facility] Clinical Communication Start: 10-31-2022 Telephone encounter Cheryl Basilio MD Work Phone: [facility] Internal Medicine Comment on above: Med Refill Start: 10-15-2022 Orders Only Cheryl centeno MD Work Phone: [facility] Internal Medicine Comment on above: ER Follow-up Start: 10-12-2022 End: 10-16-2022 Emergency department patient visit An Portiasam Work Phone: [facility] 4S TELEMETRY Comment on above: Acute deep vein thro mbosis (DVT) of left lower extremity, unspecified vein (HCC) (Primary Dx); Ambulatory dysfunction Start: 10-12-2022 End: 10-12-2022 Subsequent hospital visit by physician [facility] Us Exam Room [address] [facility] US Comment on above: Arrived Start: 10-12-2022 End: 10-12-2022 Emergency department patient visit Pacheco Negron MD Work Phone: [facility] ED Comment on above: Leg swelling (Primar y Dx); Acute deep vein thrombosis (DVT) of left lower extremity, unspecified vein (HCC) Start: 10-11-2022 End: 10-11-2022 Office outpatient new 30 minutes Cheryl Basilio MD Work Phone: [facility] Internal Medicine Comment on above: Recurrent UTI (Prima ry Dx); Benign prostatic hyperplasia without lower urinary tract symptoms Start: 10-10-2022 End: 10-10-2022 Office outpatient new 45 minutes Donna Roberts DO Work Phone: [facility] Pulmonary Comment on above: Pleural effusion (Pr imary Dx); History of tobacco abuse; Centrilobular emphysema (HCC) Start: 10-10-2022 End: 10-10-2022 Subsequent hospital visit by physician Won Smith CIVIL DEFENSE DIRECTOR - ALTITUDE CHAMBER TECHNICIAN Work Phone: [facility] US Comment on above: Complex renal cyst Start: 09-27-2022 ambulatory NONE PHYSICIAN Facility :R Start: 09-18-2022 End: 09-18-2022 Subsequent hospital visit by physician Lake Perales MD Work Phone: [facility] CT Comment on above: No Show Start: 09-16-2022 Telephone encounter Dino kunz CIVIL DEFENSE DIRECTOR - ALTITUDE CHAMBER TECHNICIAN Work Phone: [facility] Family Medicine Comment on above: Results Start: 09-13-2022 End: 09-13-2022 Office outpatient visit 15 minutes Dino Brown CIVIL DEFENSE DIRECTOR - ALTITUDE CHAMBER TECHNICIAN Work Phone: [facility] Family Medicine Comment on above: Urinary tract infect ion symptoms (Primary Dx) Start: 08-22-2022 Refill Lake Perales MD Work Phone: [facility] Family Medicine Start: 08-20-2022 Orders Only Ventura Rivas CIVIL DEFENSE DIRECTOR - ALTITUDE CHAMBER TECHNICIAN Work Phone: [facility] Start: 08-17-2022 End: 08-17-2022 Office outpatient visit 15 minutes Ventura Ozuna CNP Work Phone: [facility] Comment on above: Recurrent UTI (Prima ry Dx); Dysuria; Urinary frequency; Urinary urgency; Chronic right-sided low back pain without sciatica; Leukocytes in urine; Hematuria, unspecified type Start: 07-04-2022 Refill Lake Perales MD Work Phone: [facility] Start: 06-19-2022 End: 06-19-2022 Office outpatient visit 10 minutes Lake Perales MD Work Phone: [facility] Comment on above: 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) Start: 06-19-2022 End: 06-19-2022 Office outpatient visit 15 minutes Lake Perales MD Work Phone: [facility] Comment on above: 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) Start: 05-17-2022 End: 05-17-2022 Office outpatient visit 15 minutes Lake Perales MD Work Phone: [facility] Comment on above: Right flank pain (Pr imary Dx) Start: 03-22-2022 Telephone encounter Lake Chu MD Work Phone: [facility] Comment on above: Auth for CT Start: 03-13-2022 Refill Lake Perales MD Work Phone: [facility] Start: 03-06-2022 End: 03-06-2022 Office outpatient visit 25 minutes Lake Perales MD Work Phone: [facility] Comment on above: Acute right-sided lo w back pain without sciatica (Primary Dx); Right flank pain Start: 02-27-2022 End: 02-27-2022 Office outpatient visit 15 minutes Dino Mejiaal CIVIL DEFENSE DIRECTOR - ALTITUDE CHAMBER TECHNICIAN Work Phone: [facility] Comment on above: Acute cystitis witho ut hematuria (Primary Dx); Flank pain; Essential hypertension, benign Start: 02-27-2022 End: 02-27-2022 Office outpatient visit 25 minutes Dino Bridenthal CIVIL DEFENSE DIRECTOR - ALTITUDE CHAMBER TECHNICIAN Work Phone: [facility] Comment on above: Acute cystitis witho ut hematuria (Primary Dx); Flank pain; Essential hypertension, benign Start: 12-15-2021 Transcribe Orders Won kramer CIVIL DEFENSE DIRECTOR - ALTITUDE CHAMBER TECHNICIAN Work Phone: [facility] Clinical Communication Comment on above: Complex renal cyst ( Primary Dx) Start: 12-07-2021 ambulatory [facility] Start: 12-01-2021 End: 12-06-2021 Evaluation and management of inpatient UNKNOWN PROVIDER [facility] Start: 12-01-2021 End: 12-06-2021 Evaluation and management of inpatient Barry Leon MD Work Phone: [facility] MED SURG Comment on above: Flank pain (Primary Dx); Acute right flank pain; Chills Start: 11-27-2021 End: 11-28-2021 Emergency department patient visit UNKNOWN PROVIDER [facility] Start: 11-27-2021 End: 11-28-2021 Emergency department patient visit Zheng Spence MD Work Phone: [facility] Comment on above: Flank pain (Primary Dx) Start: 10-18-2021 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 Ryan Ceja Work Phone: Start: 05-28-[address] Ryan Ceja Work Phone: Start: 05-09-[address] Ryan Ceja Work Phone: Start: 02-07-2023 Computed tomography angiography of abdominal and/or pelvic blood vessel Dr. Ryan Ceja Work Phone: Start: 01-03-2023 Thyrotropin [Units/v olume] in Serum or Plasma Rocio Ruiz MD Work Phone: Start: 12-25-2022 FL GUIDANCE OR USE O NLY - NON-RESULTABLE Jacob Arauz MD Work Phone: Start: 12-22-2022 Urinalysis complete panel - Urine Pacheco Negron MD Work Phone: Start: 12-22-2022 Urnls dip stick/tabl et rgnt auto w/o microscopy Pacheco Negron MD Work Phone: Start: 12-22-2022 Basic metabolic pane l calcium total Pacheco Negron MD Work Phone: Start: 12-21-2022 Us retroperitoneal r eal time w/image complete Cheryl Basilio MD Work Phone: Start: 12-21-2022 Radiologic exam abdo men 1 view Cheryl Basilio MD Work Phone: Start: 12-17-2022 Urnls dip stick/tabl et rgnt non-auto w/o micrscp Lake Perales MD Work Phone: Start: 12-13-2022 Antibody screen CHERYL BASILIO Comment on above: Performed By: #### L [id number] #### Steam Train Driver: LENORE ESCOBAR ([id number]) [facility] ([facility]) [address] [place] [address] Start: 12-11-2022 Dup-scan aorta ivc i liac vascl/bpgs complete Jacob Arauz MD Work Phone: Start: 11-14-2022 Dup-scan xtr veins complete bilateral study Cheryl Basilio MD Work Phone: Start: 10-16-2022 Comprehensive metabo lic panel Bhaskar Reyes MD Work Phone: Start: 10-15-2022 Ct head/brain w/o co ntrast material Bhaskar Reyes MD Work Phone: Start: 10-15-2022 Glucose quantitative blood xcpt reagent strip Bhaskar Reyse MD Work Phone: Start: 10-15-2022 Dup-scan xtr veins complete bilateral study Bhaskar Reyes MD Work Phone: Start: 10-15-2022 Comprehensive metabo lic panel Bhaskar Reyes MD Work Phone: Start: 10-14-2022 Comprehensive metabo lic panel Bhaskar Reyes MD Work Phone: Start: 10-12-2022 Dup-scan xtr veins unilateral/limited study Pacheco Negron MD Work Phone: Start: 10-12-2022 Radiologic examinati on tibia & fibula 2 views Pacheco Negron MD Work Phone: Start: 10-12-2022 Basic metabolic pane l calcium total Pacheco Negron MD Work Phone: Start: 09-13-2022 Urnls dip stick/tabl et rgnt non-auto w/o micrscp Dino Brown CIVIL DEFENSE DIRECTOR - ALTITUDE CHAMBER TECHNICIAN Work Phone: Start: 08-17-2022 Urnls dip stick/tabl et rgnt non-auto w/o micrscp Ventura Rivas CIVIL DEFENSE DIRECTOR - ALTITUDE CHAMBER TECHNICIAN Work Phone: Start: 08-17-2022 Culture bacterial quanttative colony count urine Ventura Rivas CIVIL DEFENSE DIRECTOR - ALTITUDE CHAMBER TECHNICIAN Work Phone: Start: 05-17-2022 Urnls dip stick/tabl et rgnt non-auto w/o micrscp Lake Perales MD Work Phone: Start: 03-06-2022 Urnls dip stick/tabl et rgnt non-auto w/o micrscp Lake Perales MD Work Phone: Start: 02-25-2022 Deep venous thrombos is of lower extremity (disorder) BASIM RAMSEY MD Start: 02-07-2022 Lipid 1996 panel - S suhail or Plasma Lake Perales MD Work Phone: Start: 02-06-2022 Adult depression scr eening assessment Lake Perales MD Work Phone: Start: 12-06-2021 BASIC METABOLIC PANE L W/ REFLEX TO MG FOR LOW K Bridgett Kapoor CIVIL DEFENSE DIRECTOR - ALTITUDE CHAMBER TECHNICIAN Work Phone: Start: 12-06-2021 Blood count complete auto&auto difrntl wbc Bridgett Kapoor CIVIL DEFENSE DIRECTOR - ALTITUDE CHAMBER TECHNICIAN Work Phone: Start: 12-05-2021 BASIC METABOLIC PANE L W/ REFLEX TO MG FOR LOW K Bridgett Kapoor CIVIL DEFENSE DIRECTOR - ALTITUDE CHAMBER TECHNICIAN Work Phone: Start: 12-05-2021 Blood count complete auto&auto difrntl wbc Bridgett Kapoor CIVIL DEFENSE DIRECTOR - ALTITUDE CHAMBER TECHNICIAN Work Phone: Start: 12-05-2021 Manual Differential panel - Blood Bridgett Antwon [facility] Work Phone: Start: 12-04-2021 Urnls dip stick/tabl et rgnt auto w/o microscopy Bridgett Antwon [facility] Work Phone: Start: 12-04-2021 Us retroperitoneal r eal time w/image limited Bridgett Antwon [facility] Work Phone: Start: 12-04-2021 BASIC METABOLIC PANE L W/ REFLEX TO MG FOR LOW K Shane Barlow MD Work Phone: Start: 12-04-2021 Blood count complete auto&auto difrntl wbc Shane Barlow MD Work Phone: Start: 12-03-2021 BASIC METABOLIC PANE L W/ REFLEX TO MG FOR LOW K Shane Barlow MD Work Phone: Start: 12-03-2021 Blood count complete auto&auto difrntl wbc Shane Barlow MD Work Phone: Start: 12-02-2021 Assay of thyroid stimulating hormone tsh Temi Lynne MD Work Phone: Start: 12-02-2021 Lipid panel Temi alejandro MD Work Phone: Start: 12-02-2021 Thyrotropin [Units/v olume] in Serum or Plasma Lake Perales MD Work Phone: Start: 12-01-2021 Echo tthrc r-t 2d w/wom-mode compl spec&colr d Temi Lynne MD Work Phone: Start: 12-01-2021 Assay of troponin quantitative Temi Lynne MD Work Phone: Start: 12-01-2021 Ecg routine ecg w/le ast 12 lds w/i&r Temi Lynne MD Work Phone: Start: 12-01-2021 Radiologic exam ches t single view Temi Lynne MD Work Phone: Start: 12-01-2021 CULTURE, BLOOD 1 Lenore Tellez PA Work Phone: Start: 12-01-2021 Basic metabolic pane l calcium total Lenore Tellez PA Work Phone: Start: 12-01-2021 Hepatic function panel Lenore Tellez PA Work Phone: Start: 12-01-2021 LACTATE, SEPSIS Lenore la PA Work Phone: Start: 12-01-2021 End: 12-01-2021 Culture bacterial quanttative colony count urine Lenore Tellez PA Work Phone: Start: 12-01-2021 Urnls dip stick/tabl et rgnt auto w/o microscopy Lenore Tellez PA Work Phone: Start: 11-27-2021 Ct abdomen & pelvis w/o contrast material Zheng Spence MD Work Phone: Start: 11-27-2021 Urnls dip stick/tabl et rgnt auto w/o microscopy Zheng Spence MD Work Phone: Start: 11-27-2021 Basic metabolic pane l calcium total Zheng Spence MD Work Phone: Start: 02-01-2020 Colonoscopy Rocio Ruiz MD Work Phone: Start: 12-26-2018 POCT CALCIUM IONIZED Ah mad O Al-Shoha Work Phone: Start: 12-26-2018 25 hydroxy includes fractions if performed Ahmad O Al-Shoha Work Phone: Start: 12-26-2018 Assay of free thyroxine Ahmad O Al-Shoha Work Phone: Start: 12-26-2018 Assay of parathormone A hmad O Al-Shoha Work Phone: Start: 12-26-2018 Assay of prolactin Ahma d O Al-Shoha Work Phone: Start: 12-26-2018 Assay of thyroid stimulating hormone tsh Hema Gomez Work Phone: Start: 12-26-2018 Comprehensive metabo lic panel Hema Gomez Work Phone: Start: 12-26-2018 Assay of urine sodium A selena Gomez Work Phone: Start: 12-26-2018 Creatinine other source Hema Gomez Work Phone: Start: 02-25-2013 Cholecystectomy BASIM RAMSEY MD Plan of Treatment Date Care Activity Detail Author Start: 01-31-2030 Screening for malignant neoplasm of colon [facility] Start: 02-07-2027 Lipid panel Lipid Panel [facility] Start: 08-20-2026 DTaP/Tdap/Td vaccine (2 - Td or Tdap) DTaP/Tdap/Td vaccine (2 - Td or Tdap) [facility] Start: 08-20-2026 DTaP/Tdap/Td vaccine (2 - Td) DTaP/Tdap/Td vaccine (2 - Td) [place] Start: 08-20-2026 DTaP/Tdap/Td Vaccines (2 - Td or Tdap) DTaP/Tdap/Td Vaccines (2 - Td or Tdap) [facility] Start: 07-30-2024 Thyroid stimulating hormone measurement TSH Level [facility] Start: 05-28-2024 Urine culture Urine Culture [facility] Start: 05-28-2024 [facility] Start: 05-14-2024 Patient referral [facility] Work Phone: Start: 01-04-2024 Thyroid stimulating hormone measurement TSH Level [facility] Start: 10-27-2023 Influenza vaccination [facility] Start: 08-01-2023 End: 07-31-2024 Hemoglobin [Mass/volume] in Blood Hemoglobin and hematocrit, blood Lab Routine Hypogonadism in male Expected: 08/01/2023 (Approximate), Expires: 07/31/2024 [facility] Comment on above: Expected: 08/01/2023 (Approximate), Expi res: 07/31/2024 Start: 08-01-2023 End: 07-31-2024 Testosterone [Mass/volume] in Serum or Plasma Testosterone Lab Routine Hypogonadism in male Expected: 08/01/2023 (Approximate), Expires: 07/31/2024 [employer] Work Phone: Comment on above: Expected: 08/01/2023 (Approximate), Expi res: 07/31/2024 Start: 07-31-2023 End: 07-30-2024 Creatinine [Mass/volume] in Serum or Plasma Creatinine, Serum Lab Routine Pituitary adenoma (HCC) Expected: 07/31/2023 (Approximate), Expires: 07/30/2024 [employer] Comment on above: Expected: 07/31/2023 (Approximate), Expi res: 07/30/2024 Start: 07-31-2023 End: 07-30-2024 DXA Skeletal system.axial Views for bone density DEXA bone density axial skeleton Imaging Routine Hypercalcemia Expected: 07/31/2023, Expires: 07/30/2024 [facility] Comment on above: Expected: 07/31/2023, Expires: Start: 07-31-2023 End: 07-30-2024 Hemoglobin [Mass/volume] in Blood Hemoglobin and hematocrit, blood Lab Routine Hypogonadotropic hypogonadism (HCC) Expected: 07/31/2023 (Approximate), Expires: 07/30/2024 [facility] Comment on above: Expected: 07/31/2023 (Approximate), Expi res: 07/30/2024 Start: 07-31-2023 End: 07-30-2024 MR Pituitary and Sella turcica WO and W contrast IV MR pituitary w and wo IV contrast Imaging Routine Pituitary adenoma (HCC) Expected: 07/31/2023, Expires: 07/30/2024 [facility] Comment on above: Expected: 07/31/2023, Expires: Start: 07-31-2023 End: 07-30-2024 Prolactin Prolactin Lab Routine Pituitary adenoma (HCC) Expected: 07/31/2023 (Approximate), Expires: 07/30/2024 [employer] Work Phone: Comment on above: Expected: 07/31/2023 (Approximate), Expi res: 07/30/2024 Start: 07-31-2023 End: 07-30-2024 Testosterone [Mass/volume] in Serum or Plasma Testosterone Lab Routine Hypogonadotropic hypogonadism (HCC) Expected: 07/31/2023 (Approximate), Expires: 07/30/2024 [facility] Comment on above: Expected: 07/31/2023 (Approximate), Expi res: 07/30/2024 Start: 07-31-2023 End: 07-30-2024 Thyrotropin [Units/volume] in Serum or Plasma TSH Lab Routine 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 Expected: 07/31/2023 (Approximate), Expires: 07/30/2024 [facility] Comment on above: Expected: 07/31/2023 (Approximate), Expi res: 07/30/2024 Start: 07-31-2023 End: 07-31-2023 Patient encounter procedure [facility] Endocrinology Start: 05-28-2023 Patient referral [facility] Work Phone: Start: 04-12-2023 End: 04-12-2023 Patient encounter procedure 04/12/2023 8:00 AM EST Office Visit [facility] Internal Medicine [address] [address] Jacob Frazier MD [address] [place] [phone] [facility] Internal Medicine Start: 02-20-2023 Patient referral [facility] Work Phone: Start: 02-14-2023 End: 02-14-2023 Patient encounter procedure 02/14/2023 7:30 AM EST Office Visit [facility] Family Medicine [address] [place] [address] [phone] Lake Perales MD [address] [place] [address] [place] [address] [facility] Family Medicine Start: 12-20-2023 Patient discharge [facility] Start: 02-13-2023 [facility] Start: 02-13-2023 Care planning and problem solving actions [facility] Start: 02-12-2023 [facility] Start: 02-12-2023 Following clinical pathway protocol [facility] Start: 02-12-2023 Ambulation without limitation [facility] Start: 02-12-2023 Assessment of risk of venous thromboembolism [facility] Start: 02-12-2023 Bedrest [facility] Start: 02-12-2023 Incentive spirometry [facility] Start: 02-12-2023 Insertion of catheter into peripheral vein [facility] Start: 02-12-2023 Measuring intake and output [facility] Start: 02-12-2023 Notification of physician [facility] Start: 02-12-2023 Oxygen therapy [facility] Start: 02-12-2023 Providing care according to standard [facility] Start: 02-12-2023 Provision of activity privileges [facility] Start: 02-12-2023 Pulse taking [facility] Start: 02-12-2023 Taking patient vital signs [facility] Start: 02-12-2023 End: 02-12-2023 [facility] Start: 02-12-2023 Admission procedure [facility] Start: 02-12-2023 Thrombectomy (Bilateral) Thrombectomy (Bilateral) [facility] Start: 02-06-2023 COVID-19 Vaccine (4 - Booster for Moderna series) COVID-19 Vaccine (4 - Booster for Moderna series) [facility] Comment on above: Postponed from 05/08/2021 (Patient Refus ed) Start: 02-06-2023 COVID-19 Vaccine (4 - Booster) COVID-19 Vaccine (4 - Booster) [facility] Comment on above: Postponed from 05/08/2021 (Patient Refus ed) Start: 02-06-2023 COVID-19 Vaccine (4 - Moderna series) COVID-19 Vaccine (4 - Moderna series) [facility] Comment on above: Postponed from 05/08/2021 (Patient Refus ed) Start: 02-06-2023 Depression Screening Depression Screening [facility] Start: 02-06-2023 Hepatitis C screening Hepatitis C Screening [facility] Comment on above: Postponed from 09/08/1979 (Patient Refus ed) Start: 02-06-2023 HIV screening HIV Screening [facility] Comment on above: Postponed from 1961 (Patient Refus ed) Start: 01-30-2023 End: 01-30-2023 Telemedicine consultation with patient 01/30/2023 10:00 AM EST Telemedicine [facility] Pulmonary [address] [place] [phone] Donna Roberts DO [address] [place] [address] [facility] Start: 01-22-2023 End: 01-22-2023 Patient encounter procedure 01/22/2023 8:30 AM EST Office Visit [facility] Oncology [address] 1st [place] [phone] Lauren Borja DO [address] [place] [address] [facility] On[facility] Start: 01-07-2023 End: 01-07-2023 Patient encounter procedure 01/07/2023 2:45 PM EST Office Visit [facility] Vascular Center [address] [place] [phone] Jacob Arauz MD [address] [place] [address] [facility] Start: 01-04-2023 End: 01-05-2024 Hemoglobin [Mass/volume] in Blood Hemoglobin and hematocrit, blood Lab Routine Hypogonadism in male Expected: 01/04/2023 (Approximate), Expires: 01/05/2024 [facility] [employer] Work Phone: Comment on above: Expected: 01/04/2023 (Approximate), Expi res: 01/05/2024 Start: 01-04-2023 End: 11-10-2024 Macropolactin Macropolactin Lab Routine Hypogonadism in male Expected: 01/04/2023 (Approximate), Expires: 01/05/2024 [facility] Comment on above: Expected: 01/04/2023 (Approximate), Expi res: 01/05/2024 Start: 01-04-2023 End: 01-05-2024 Testosterone [Mass/volume] in Serum or Plasma Testosterone Lab Routine Hypogonadism in male Expected: 01/04/2023 (Approximate), Expires: 01/05/2024 [facility] Comment on above: Expected: 01/04/2023 (Approximate), Expi res: 01/05/2024 Start: 01-02-2023 End: 01-02-2023 Patient encounter procedure [facility] End[facility]in[facility] Start: 01-02-2023 End: 01-02-2023 Patient encounter procedure 01/02/2023 8:30 AM EST Office Visit [facility] Vascular Surgery [address] [facility] [address] [place] [phone] Jacob Arauz MD [address] [place] [address] [facility] Surgery Start: 12-25-2022 End: 12-25-2022 Admission to same day surgery center 12/25/2022 10:30 AM EDT - 12/25/2022 1:00 PM EDT Surgery [facility] MAIN OR [address] [place] [phone] Jacob Arauz MD [address] [place] [address] LEFT ILIOFEMORAL DEEP VEIN THROMBOSIS, THROMBECTOMY AND STENTING [51474 (CPT )] [facility] Comment on above: LEFT ILIOFEMORAL DEEP VEIN THROMBOSIS, T HROMBECTOMY AND STENTING [51268 (CPT )] Start: 12-25-2022 End: 12-25-2022 Anesthesia consultation 12/25/2022 10:30 AM EDT Anesthesia Event [facility] MA[facility] OR [address] [place] [phone] Carissa Romero, CIVIL DEFENSE DIRECTOR - ALTITUDE CHAMBER TECHNICIAN [address] [place] [address] [facility] MAIN OR Start: 12-25-2022 End: 12-25-2022 Open/perq placement intravascular stent same 1st TRANSCATHETER PLACEMENT OF AN INTRAVASCULAR STENT(S), OPEN OR PERCUTANEOUS INITIAL VEIN 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) 12/25/2022 10:30 AM EDT [facility] Operating Room Start: 12-25-2022 End: 12-25-2022 Prq transluminal mechanical thrombectomy vein PERCU TRANSLUMIN MECHNCL THROMBEC, VEIN(S), INCL INTRAPROCED PHARMACOLO THROMBOLYTIC INJ & FLUORO GUIDNCE 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) 12/25/2022 10:30 AM EDT [facility] Operating Room Start: 12-25-2022 Subsequent hospital visit by physician 12/25/2022 10:30 AM EDT Hospital Encounter [facility] OR [address] [place] [phone] Jacob Arauz MD [address] [place] [address] [facility] MAIN OR Start: 12-21-2022 End: 12-21-2022 Admission to same day surgery center 12/21/2022 1:30 PM EDT - 12/21/2022 3:00 PM EDT Surgery [facility] MAIN OR [address] [place] [address] Jacob Arauz MD [address] [place] [address] LEFT ILIOFEMORAL DEEP VEIN THROMBOSIS, THROMBECTOMY AND STENTING [75708 (CPT )] [facility] MAIN OR Comment on above: LEFT ILIOFEMORAL DEEP VEIN THROMBOSIS, T HROMBECTOMY AND STENTING [55451 (CPT )] Start: 12-21-2022 End: 12-21-2022 Open/perq placement intravascular stent same 1st TRANSCATHETER PLACEMENT OF AN INTRAVASCULAR STENT(S), OPEN OR PERCUTANEOUS INITIAL VEIN 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) 12/21/2022 1:30 PM EDT [facility] Operating Room Start: 12-21-2022 End: 12-21-2022 Prq transluminal mechanical thrombectomy vein PERCU TRANSLUMIN MECHNCL THROMBEC, VEIN(S), INCL INTRAPROCED PHARMACOLO THROMBOLYTIC INJ & FLUORO GUIDNCE 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) 12/21/2022 1:30 PM EDT [facility] Operating Room Start: 12-21-2022 Subsequent hospital visit by physician 12/21/2022 1:30 PM EDT Hospital Encounter [facility] MA[facility] OR [address] [facility] [place] [address] Jacob Arauz MD [address] [place] [address] [facility] OR Start: 12-13-2022 End: 12-13-2022 Admission to establishment 12/13/2022 10:00 AM EDT Pre-Admission Testing [facility] Pre-Admit Testing [address] [place] [phone] [facility] Pre-Admit Testing Start: 12-13-2022 End: 12-13-2022 Patient encounter procedure 12/13/2022 Office Visit Urology Won Smith, CIVIL DEFENSE DIRECTOR - ALTITUDE CHAMBER TECHNICIAN [address] [place] [address] [facility] U[facility] Start: 12-12-2022 End: 12-12-2022 Patient encounter procedure 12/12/2022 9:00 AM EDT Office Visit [facility] Urology [address] [facility] [address] [place] [phone] Ventura Salmon, CIVIL DEFENSE DIRECTOR - DIVISION COMMANDER [address] [place] [address] [facility] Start: 12-11-2022 End: 12-11-2022 Patient encounter procedure 12/11/2022 9:20 AM EDT Procedure Visit [facility] [address] [place] [address] Garrison Garza MD [address] [place] [address] [facility] Start: 12-10-2022 End: 12-10-2022 Patient encounter procedure 12/10/2022 2:15 PM EDT Office Visit [facility] Center [address] [place] [phone] Jacob Arauz MD [address] [place] [address] [facility] Start: 12-04-2022 End: 12-04-2022 Patient encounter procedure [facility] [address] [facility] Start: 12-02-2022 Lipid panel Lipids [facility] Start: 12-02-2022 Thyroid stimulating hormone measurement TSH Level [facility] Start: 11-14-2022 End: 11-14-2022 Patient encounter procedure 11/14/2022 11:00 AM EDT Office Visit [facility] Internal Medicine [address] [place] [phone] Cheryl Basilio MD [address] [facility] [address] [place] [address] [facility] Medicine Start: 10-26-2022 COVID-19 Vaccine ( season) COVID-19 Vaccine ( season) [facility] Start: 10-26-2022 Influenza vaccination Influenza Vaccine (#1) [facility] Start: 10-24-2022 End: 10-24-2022 Patient encounter procedure 10/24/2022 11:20 AM EDT Office Visit [facility] Internal Medicine [address] [place] [phone] Cheryl Basilio MD [address] [facility] [address] [place] [address] [facility] Medicine Start: 10-11-2022 End: 10-12-2023 Bacteria identified in Urine by Culture Urine culture (clean catch) Microbiology Routine Recurrent UTI Expected: 10/11/2022 (Approximate), Expires: 10/12/2023 [facility] [employer] Comment on above: Expected: 10/11/2022 (Approximate), Expi res: 10/12/2023 Start: 10-11-2022 End: 10-12-2023 Urinalysis complete panel - Urine Urinalysis with reflex microscopic (clean catch) Lab Routine Recurrent UTI Expected: 10/11/2022 (Approximate), Expires: 10/12/2023 [facility] Work Phone: Comment on above: Expected: 10/11/2022 (Approximate), Expi res: 10/12/2023 Start: 10-11-2022 End: 10-11-2022 Patient encounter procedure 10/11/2022 8:20 AM EDT Office Visit [facility] Internal Medicine [address] [phone] Cheryl Basilio MD [address] [facility] [address] [place] [address] [facility] Internal Medicine Start: 10-10-2022 End: 10-11-2023 Complete PFT pre and post bronchodilator Complete PFT pre and post bronchodilator PFT Routine History of tobacco abuse Centrilobular emphysema (HCC) Expected: 10/10/2022 (Approximate), Expires: 10/11/2023 [facility] Work Phone: Comment on above: Expected: 10/10/2022 (Approximate), Expi res: 10/11/2023 Start: 10-10-2022 End: 10-11-2023 CT Chest for screening WO contrast CT lung screening low dose Imaging Routine History of tobacco abuse Centrilobular emphysema (HCC) Pleural effusion Expected: 10/10/2022, Expires: 10/11/2023 [facility] Comment on above: Expected: 10/10/2022, Expires: Start: 09-18-2022 Subsequent hospital visit by physician 09/18/2022 8:15 AM EDT Hospital Encounter [facility] [address] [place] [phone] Lake Perales MD [address] [place] [address] [place] [address] [facility] [address] Start: 09-13-2022 End: 09-14-2023 Bacteria identified in Urine by Culture Urine culture (clean catch) Microbiology Routine Urinary tract infection symptoms Expected: 09/13/2022 (Approximate), Expires: 09/14/2023 [facility] Work Phone: Comment on above: Expected: 09/13/2022 (Approximate), Expi res: 09/14/2023 Start: 08-17-2022 End: 08-18-2023 Bacteria identified in Urine by Culture Urine culture (clean catch) Microbiology Routine Dysuria Urinary frequency Urinary urgency Leukocytes in urine Hematuria, unspecified type Recurrent UTI Expected: 08/17/2022 (Approximate), Expires: 08/18/2023 [facility] [facility] Work Phone: Comment on above: Expected: 08/17/2022 (Approximate), Expi res: 08/18/2023 Start: 08-06-2022 End: 08-06-2022 Patient encounter procedure 08/06/2022 Office Visit Family Medicine Lake Perales MD [address] [place] [address] [facility] Start: 08-03-2022 Depression Screen [facility] Screen [facility] Start: 08-03-2022 Lipid panel Lipids [facility] Start: 06-13-2022 End: 06-13-2022 Patient encounter procedure 06/13/2022 Office Visit Endocrinology Rocio Ruiz MD [address] [address] [facility] Start: 05-17-2022 End: 05-18-2023 Bacteria identified in Urine by Culture Urine culture Microbiology Routine Right flank pain Expected: 05/17/2022 (Approximate), Expires: 05/18/2023 [facility] Work Phone: Comment on above: Expected: 05/17/2022 (Approximate), Expi res: 05/18/2023 Start: 03-06-2022 End: 03-06-2023 CT Lumbar spine WO contrast CT lumbar spine wo IV contrast Imaging Routine Right flank pain Acute right-sided low back pain without sciatica Expected: 03/06/2022, Expires: 03/06/2023 [facility] [employer] Work Phone: Comment on above: Expected: 03/06/2022, Expires: Start: 03-05-2022 End: 03-05-2022 Patient encounter procedure 03/05/2022 Office Visit Endocrinology Rocio Calix MD [address] [facility] [address] [place], [place] [phone] Endocrinology [facility] Start: 02-06-2022 End: 02-06-2022 Patient encounter procedure 02/06/2022 Office Visit Family Medicine Lake Perales MD [address] [facility] [place] [address] [facility] Start: 12-15-2021 End: 12-15-2022 US Retroperitoneum US retroperitoneum Imaging Routine Complex renal cyst Expected: 12/15/2021, Expires: 12/15/2022 [facility] [facility] Work Phone: Comment on above: Expected: 12/15/2021, Expires: Start: 12-07-2021 End: 12-07-2021 Patient encounter procedure 12/07/2021 Appointment Radiology Ventura Rivas, CIVIL DEFENSE DIRECTOR - ALTITUDE CHAMBER TECHNICIAN [address] [place], [place] [phone] [facility] 1 [facility] Start: 10-26-2021 Influenza vaccination Flu vaccine (#1) [facility] Start: 09-25-2021 Influenza vaccination Flu vaccine (#1) [facility] Start: 2021 RSV Immunization aged 60 or older (1 - 1-dose 60+ series) RSV Immunization aged 60 or older (1 - 1-dose 60+ series) [facility] Start: 07-11-2021 COVID-19 Vaccine (4 - Booster) COVID-19 Vaccine (4 - Booster) [facility] Start: 07-15-2019 Lipid screen Lipid screen [place], [place] Start: 07-12-2019 Colon cancer screen colonoscopy Colon cancer screen colonoscopy [place], [place] Start: 06-26-2019 Creatinine monitoring Creatinine monitoring [place], [place] Start: 06-26-2019 Potassium monitoring Potassium monitoring [place], [place] Start: 06-26-2019 TSH testing TSH testing [place], [place] Start: 01-20-2019 End: 01-20-2019 Office Visit 01/20/2019 Office Visit Endocrinology Hema Gomez MD [address] [place] [address] [phone] Endocrinology [facility] Start: 01-09-2019 End: 01-09-2019 Office Visit 01/09/2019 Office Visit Family Medicine Lake Perales MD [address] [facility] [place] [address] [facility] Start: 10-26-2018 Influenza vaccination Flu vaccine (#1) [place] Start: 05-26-2018 Diabetes screen Diabetes screen [facility] Start: 09-08-2011 Screening for malignant neoplasm of lung Lung Cancer Screening [facility] Start: 09-08-2011 Shingles Vaccine (1 of 2) Shingles Vaccine (1 of 2) [place], [place] Start: 2006 Screening for malignant neoplasm of colon [facility] Start: 09-08-1979 Diabetes mellitus screening Diabetes Screening [facility] Start: 09-08-1979 Hepatitis C screening Hepatitis C Screening [facility] Start: 1962 MMR Vaccines (1 of 1 - Standard series) MMR Vaccines (1 of 1 - Standard series) [facility] Start: 1961 Hepatitis B Vaccines (1 of 3 - 3-dose series) Hepatitis B Vaccines (1 of 3 - 3-dose series) [facility] Start: 1961 HIV screening HIV Screening [facility] Start: 1961 Screening for malignant neoplasm of colon [facility] End: 12-26-2018 ACTH ACTH Lab Routine Prolactin secreting pituitary adenoma (HCC) 1 Occurrences starting 12/26/2018 until 12/26/2018 [place], [place] Comment on above: 1 Occurrences starting 12/26/2018 until 12/26/2018 ACTH ACTH Lab Routine Prolactin secreting pituitary adenoma (HCC) 12/26/2018 9:03 AM EDT [place] End: 12-11-2021 Basic Metabolic Panel w/ Reflex to MG Basic Metabolic Panel w/ Reflex to MG Lab Routine Daily for 1 Weeks starting 12/05/2021 until 12/11/2021, 2 completed [facility] Work Phone: Comment on above: Daily for 1 Weeks starting 12/05/2021 un til 12/11/2021, 2 completed End: 12-26-2018 Calcium, Urine Calcium, Urine Lab Routine Primary hyperparathyroidism (HCC) 1 Occurrences starting 12/26/2018 until 12/26/2018 [place] Comment on above: 1 Occurrences starting 12/26/2018 until 12/26/2018 Calcium, Urine Calcium, Urine L ab Routine Primary hyperparathyroidism (HCC) 12/26/2018 5:45 AM EDT [place] End: 12-11-2021 CBC W Auto Differential panel - Blood CBC with Auto Differential Lab Routine Daily for 1 Weeks starting 12/05/2021 until 12/11/2021, 2 completed [facility] Work Phone: Comment on above: Daily for 1 Weeks starting 12/05/2021 un til 12/11/2021, 2 completed Comprehensive metabo lic 2000 panel - Serum or Plasma [facility] End: 12-26-2018 Cortisol Cortisol Lab Routine Prolactin secreting pituitary adenoma (HCC) 1 Occurrences starting 12/26/2018 until 12/26/2018 [place] Comment on above: 1 Occurrences starting 12/26/2018 until 12/26/2018 Cortisol Cortisol Lab Rou [facility]lf Prolactin secreting pituitary adenoma (HCC) 12/26/2018 9:03 AM EDT [place] CT Abdomen and Pelvi s WO and W contrast IV [facility] Culture, Blood 2 Culture, Blood 2 Microbiology STAT 12/01/2021 10:28 AM EDT [employer] Work Phone: End: 11-27-2021 Culture, Urine [employer] Work Phone: Comment on above: One Time for 1 Occurrences starting 04/2021 until 11/27/2021 Doppler ultrasonogra phy of aorta [facility] Electrocardiographic procedure [facility] End: 10-13-2022 Factor 5 leiden [employer] Work Phone: Comment on above: Once (Lab) for 1 Occurrences starting until 10/13/2022 Lipid 1996 panel - S suhail or Plasma [facility] Microscopic examinat ion of blood, culture Culture, Blood Microbiology STAT 12/01/2021 11:05 AM EDT [employer] Work Phone: End: 09-16-2023 MR Pituitary and Sella turcica WO and W contrast IV [facility] Work Phone: Comment on above: Once for 1 Occurrences starting 09/16/19 until 09/16/2023 End: 10-18-2021 MRI BRAIN W WO CONTRAST [employer] Work Phone: Comment on above: Once for 1 Occurrences starting 10/19/19 until 10/18/2021 OUTSIDE PROCEDURE SCAN OUTSIDE P ROCEDURE SCAN Procedures Ordered: 09/17/2022 [facility] [employer] Comment on above: Ordered: 09/17/2022 OUTSIDE PROCEDURE SCAN OUTSIDE P ROCEDURE SCAN Procedures Ordered: 10/09/2022 [facility] [employer] Comment on above: Ordered: 10/09/2022 Oxygen therapy [[facility] Data Set] Initiate Oxygen Therapy Protocol Respiratory Care Routine As Needed until discontinued starting 12/01/2021 [employer] Work Phone: Comment on above: As Needed until discontinued starting Patient referral [facility] Work Phone: Prostate specific an tigen measurement [facility] Thyroid stimulating hormone measurement [facility] End: 10-10-2022 US Retroperitoneum [facility] Work Phone: Comment on above: Once for 1 Occurrences starting 10/11/19 23 until 10/10/2022 Immunizations Immunization Date Immunization Notes Care Provider [facility] 12-14-2021 influenza, injectabl e, quadrivalent, preservative free Lake Perales MD Work Phone: [facility] 12-14-2021 influenza virus vaccine, unspecified formulation Dino Brown CIVIL DEFENSE DIRECTOR - ALTITUDE CHAMBER TECHNICIAN Work Phone: [facility] 08-10-2021 Pneumococcal conjuga te PCV20, PF (Prevnar 20) Rocio Ruiz MD Work Phone: [facility] Work Phone: 08-03-2021 zoster vaccine recombinant Rocio Ruiz MD Work Phone: [facility] Work Phone: 03-13-2021 COVID-19, MODERNA BL UE border, Primary or Immunocompromised, (age 12y+), IM, 100 mcg/0.5mL Rocio Ruiz MD Work Phone: [facility] Work Phone: 01-11-2021 influenza, injectabl e, quadrivalent, preservative free Rocio Ruiz MD Work Phone: [facility] 01-11-2021 zoster vaccine recombinant Rocio Ruiz MD Work Phone: [facility] Work Phone: 07-08-2020 COVID-19, MODERNA BL UE border, Primary or Immunocompromised, (age 12y+), IM, 100 mcg/0.5mL Rocio Ruiz MD Work Phone: [facility] Work Phone: 06-17-2020 COVID-19, MODERNA BL UE border, Primary or Immunocompromised, (age 12y+), IM, 100 mcg/0.5mL Rocio Veeravanallur Appuswamy MD Work Phone: [facility] Work Phone: 01-11-2020 influenza, injectabl e, quadrivalent, preservative free Rocio Ruiz MD Work Phone: [facility] Work Phone: 01-09-2019 influenza, injectabl e, quadrivalent, preservative free Rocio Ruiz MD Work Phone: [facility] Work Phone: 01-06-2018 influenza, injectabl e, quadrivalent, preservative free [facility] 08-20-2016 pneumococcal polysaccharide vaccine, 23 valent [place], [place] 08-20-2016 tetanus toxoid, redu jenny diphtheria toxoid, and acellular pertussis vaccine, adsorbed [facility] Payers Date Payer Category Payer Self-pay 2021 Unknown 2021 Unknown [id number] 2014 Private Health Insurance [facility] xxxxxxxxx 2014-Present [phone] [address] [place] [address] xxxxxxxxx [id number]. [id number] 1960 Unknown [id number] 2.16.840.1.239619.3.579.2. 8 1960 Unknown [id number] 2.16.840.1.426056.3.579.2. 8 1960 Unknown [id number] 2.16.840.1.089019.3.579.2. 668 1960 Unknown [id number] 2.16.840.1.339995.3.579.2. 668 1960 Unknown [id number] 2.16.840.1.916019.3.579.2. 668 1960 Unknown [id number] 2.16.840.1.937581.3.579.2. 627 1960 Unknown [id number] 2.16.840.1.279472.3.579.2. 627 1960 Unknown [id number] 2.16.840.1.223782.3.579.2. 627 Private Health Insurance IRA [facility] [id number] Unknown [id number] 2.16.840.1.161789.3.579.2. 462 Unknown [id number] 2.16.840.1.673844.3.579.2. 462 Unknown [id number] 2.16.840.1.623618.3.579.2. 462 Unknown [id number] 2.16.840.1.031803.3.579.2. 462 Unknown [id number] 2.16.840.1.263693.3.579.2. 462 Unknown [id number] 2.16.840.1.906365.3.579.2. 462 Unknown [id number] 2.16.840.1.346374.3.579.2. 462 Unknown [id number] 2.16.840.1.401388.3.579.2. 462 Unknown [id number] 2.16.840.1.073810.3.579.2. 462 Unknown [id number] 2.16.840.1.368598.3.579.2. 462 Unknown [id number] 2.16.840.1.984242.3.579.2. 462 Unknown [id number] 2.16.840.1.174863.3.579.2. 462 Unknown [id number] 2.16.840.1.106064.3.579.2. 462 Unknown [id number] 2.16.840.1.980479.3.579.2. 462 Social History Date Type Detail Facility Start: 08-08-2018 End: 11-14-2021 Tobacco smoking status NHIS Current every day smoker [place] Start: 03-28-1982 End: 03-28-2022 History of tobacco use Cigarette Smoker [place] Start: 08-08-2018 End: 03-06-2022 Cigarettes smoked current (pack per day) - Reported [place] Start: 08-08-2018 End: 10-12-2022 Alcohol intake No [place] Sex Assigned At Not on file [place] Start: 01-09-2019 End: 01-02-2023 Tobacco use and exposure Smokeless tobacco non-user [employer] Work Phone: Start: 2021 End: 03-06-2022 Alcohol intake Current [facility]dr[facility] Work Phone: Start: 07-11-2020 End: 02-06-2022 History SDOH Alcohol Frequency 2 [facility] Work Phone: Start: 07-11-2020 End: 02-06-2022 History SDOH Alcohol Std Drinks 1 [employer] Work Phone: Start: 12-26-2019 History SDOH Alcohol Comment rarely [facility] Work Phone: Start: 01-09-2019 History SDOH Physical Activity DPW 0 [facility] Work Phone: Start: 08-03-2021 End: 02-06-2022 History SDOH Financial 5 [facility] Work Phone: Start: 1960 [facility] Start: 09-16-2021 End: 11-14-2022 Exposure to SARS-CoV-2 (event) Not sure [facility] How hard is it for y ou to pay for the very basics like food, housing, medical care, and heating Not hard at all [facility] (I/We) worried luna er (my/our) food would run out before (I/we) got money to buy more. Never true [facility] Start: 12-14-2021 Gender identity Identifies as male gender (finding) [facility] Start: 12-14-2021 Sexual orientation Heterosexual (finding) [facility] Start: 09-14-2022 End: 05-28-2024 Tobacco smoking status SCIS Occasional tobacco smoker [facility] How often to you hav e a drink containing alcohol? Monthly or less [facility] How many standard drinks containing alcohol do you have on a typical day? 1 or 2 [facility] How often do you hav e 6 or more drinks on 1 occasion? Never [facility] Start: 10-10-2022 End: 01-02-2023 Tobacco smoking status SCIS Ex-smoker [facility] Start: 03-28-1982 End: 03-28-2022 History of tobacco use Current smoker [facility] Start: 10-10-2022 End: 07-31-2023 Alcohol intake Current drinker of alcohol (finding) [facility] Within the last year , have you been afraid of your partner or ex-partner? No [facility] Start: 12-10-2022 Alcohol Comment occassionally [facility] [employer] Start: 02-06-2023 End: 06-06-2023 Tobacco smoking status SCIS Unknown if ever smoked [facility] Start: 12-24-2023 Tobacco smoking status Heavy tobacco smoker (finding) [facility] Sexual Orientation Maxine Chidi phillips [facility] Start: 09-27-2022 End: 06-02-2024 Sex Male (finding) [facility] Medical Equipment Procedure Code Equipment Code Equipment Origin al Text Equipment Identifier Dates Iliofemoral vein stent [id number] [id number] FDA Start: 02-12-2023 Iliofemoral vein stent ()[id number] [id number] FDA Start: 02-12-2023 Goals Date Patient Goal Desired Activity /State Comment on above: Self- Management Josep n: to increase activity Patient Stated Goal: to start walking Barriers to success: none Plan for overcoming my barriers: to start walking. Encouraged and recommended by provider. Confidence: 10/04 Date goal set: 08/20/16 Patient given educational materials below via AVS. Patient received counseling about current lifestyle goal. Patient was informed that they should never smoke. If they are smoker, the need to work on quitting. Advised Alcohol only in moderation. Advised approximately 150 minutes of cardio, i.e treadmill, exercise in a week. Advised strive for 5 a total 5 servings of fruits and vegetables in a day. Advised a diet lower in carbohydrates and simple sugars. They need to watch consumption of bread, rice, pasta, potatoes, corn, soda, sweetened tea, lemonade, and all other sugar drinks. Patient given after visit summary which includes educational information on Exercise Discussed use, benefit, and side effects of prescribed medications and barriers to medication compliance addressed, if applicable. All patient questions answered and patient voiced understanding. Patient was given a copy of this, and was advised to call if any questions. Formatting of this n ote might be different from the original. Self- Management Plan: to increase activity Patient Stated Goal: to start walking Barriers to success: none Plan for overcoming my barriers: to start walking. Encouraged and recommended by provider. Confidence: 10/04 Date goal set: 08/20/16 Patient given educational materials below via AVS. Patient received counseling about current lifestyle goal. Patient was informed that they should never smoke. If they are smoker, the need to work on quitting. Advised Alcohol only in moderation. Advised approximately 150 minutes of cardio, i.e treadmill, exercise in a week. Advised strive for 5 a total 5 servings of fruits and vegetables in a day. Advised a diet lower in carbohydrates and simple sugars. They need to watch consumption of bread, rice, pasta, potatoes, corn, soda, sweetened tea, lemonade, and all other sugar drinks. Patient given after visit summary which includes educational information on Exercise Discussed use, benefit, and side effects of prescribed medications and barriers to medication compliance addressed, if applicable. All patient questions answered and patient voiced understanding. Patient was given a copy of this, and was advised to call if any questions. Functional Status Date Assessment Result Facility 02-13-2023 [facility] Work Phone: 02-13-2023 Functional status Ambulates [facility] Work Phone: Mental Status Date Assessment Result Facility 02-13-2023 Cognitive function Level Of Cons ciousness Awake;Alert;Appropriate;Follow s Commands [facility] Work Phone: 02-13-2023 Cognitive function Voice/Name [facility] Work Phone: Clinical Notes 11-27-2021 to 02-25-2024 Note Date & Type Note Facility 02-25-2024 Evaluation note Diagnosis Onset Date Resolution Sebaceous cyst of scrotum acute February 24, 2 024 10:08am Left leg swelling acute March 18, 2024 1:16pm Stenosis of iliac vein acute Ja nuary 2024 1:16pm Venous insufficiency acute Rm scottie 2024 1:16pm High cholesterol acute March 31, 2024 10:21am Pituitary abnormality acute Mar 10:21am Thyroid disease acute March 31, 2024 10:21am BPH (benign prostatic hyperplasia) chronic March 31 10:21am Elevated blood pressure reading chronic March 31 10:21am Strain of lumbar region acute A pril 2024 12:52pm [facility] Work Phone: [phone]) 587-235306-06-2024 Telephone encounter Note* Telephone Encounter - Janette Calderon - 08/01/2023 4:13 PM EDT Message released to patient as written. Patient's further questions if applicable: Patient voiced understanding. Stated he will pick his medication up tomorrow. Please have clinical team call patient to schedule to have testosterone levelschecked. Were all questions from office addressed or relayed to the patient from encounter: Yes [id number] Miscellaneous Notes* Telephone Encounter - Janette Calderon - 08/01/2023 4:13 PM EDT Message released to patient as written. Patient's further questions if applicable: Patient voiced understanding. Stated he will pick his medication up tomorrow. Please have clinical team call patient to schedule to have testosterone levelschecked. Were all questions from office addressed or relayed to the patient from encounter: Yes * Telephone Encounter - Rocio Ruiz MD - 08/01/2023 4:00 PM EDT Tried calling patient and left a voice message for call back. Results of recent labs show normal prolactin, thyroid functions-patient is to continue current doseof cabergoline and levothyroxine. Testosterone remains low-I have sent prescription for testosterone gel to his pharmacy. Patient is to have testosterone levels checked 2 months after starting testosterone treatment documented in this [facility]06-06-2024 Telephone encounter Note* Telephone Encounter - Rocio Ruiz MD - 08/01/2023 4:00 PM EDT Tried calling patient and left a voice message for call back. Results of recent labs show normal prolactin, thyroid functions-patient is to continue current doseof cabergoline and levothyroxine. Testosterone remains low-I have sent prescription for testosterone gel to his pharmacy. Patient is to have testosterone levels checked 2 months after starting testosterone treatment [id number] History of Present illness Narrative* Rocio Ruiz MD - 07/31/2023 9:20 AM EDT Images from the original note were not included. [facility] [address] [facility] [address] Dept: [phone] Dept Loc: [phone] Visit type: Established Reason for Visit: Follow-up (Macroprolactinoma) and Hypothyroidism Assessment and Plan 1. Pituitary adenoma (HCC) - Prolactin - Creatinine, Serum - MR pituitary w and wo IV contrast 2. Hypercalcemia - DEXA bone density axial skeleton 3. 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 Hypogonadotropic hypogonadism (HCC) - Testosterone - Hemoglobin and hematocrit, blood 1. Pituitary macroadenoma-prolactinoma - Overall pituitary tumor had decreased in size since 2013 and remained stable in most recent MRI in 2021 - current regimen: cabergoline 0.5 mg 1.5 tabs 2 days a week - recheck prolactin - check Pituitary MRI - advised to complete formal Visual field examination - Clinically no Compressive symptoms - Further management will be based on the above labs 2.Hypogonadotrophic Hypogonadism: - Hypogonadotrophic hypogonadism despite optimization of prolactin levels since 2014 - Work up in 2022 continued to show testosterone of 103 with low normal LH/FSH and patient was started on Androgel 1.62% (20.25 Mg) 2 pumps once a day -Patient took this for 2 months and ran out. Hadnoticed improvement in energy levels and libido while on this medication - Repeat testosterone levels - Baseline PSA is normal 3. Stanley's hypothyroidism - Positive TPO antibodies 06/2012, 99.8 - Current regimen: Levothyroxine 100 mcg daily - Check thyroid functions 3.Hypercalcemia - Patient has had mild intermittent hypercalcemia since at least 2018, PTH levels checked have beeninappropriately normal with concurrent normal vitamin D renal functions suggestive of primary hyperparathyroidism In the past hypercalcemia was attributed to lab assay, increase dietary intake of calcium - Work-up done in the past showed normal SPEP and 24 hour urine calcium spillage - Last bone density was normal. Repeat bone density and if this is normal we will continue with surveillance I reviewed: laboratory results reviewed: Yes radiographic reports reviewed: Yes I reviewed the radiographic images personally at the time of today's visit: Yes Pt was advised of the results. Records from outside facility/PCP office to be requested: No Scripts sent to pharmacy of pt choice: Yes Follow up in about 6 months (around 01/30/2024). Subjective HPI PCP is Silvestre Sexton Previous New Patient Escort: Dr Sal & Dr Benito [facility] visit: 2013 Last office visit: 1.Prolactinoma - Pituitary Macroadenoma: 2.Hypogonadotrophic Hypogonadism: This was diagnosed in 10/2012 when he had presented with headaches , double vision to [facility] and pituitary MRI had shown a 3 cm macroadenoma. Overall pituitary testing in the past had normal IGF-I, normal cortisol and ACTH. Hypogonadotrophic hypogonadism despite optimization of prolactin levels since 2014 Work up in 2022 continued to show testosterone of 103 with low normal LH/FSH and patient was started on Androgel 1.62% (20.25 Mg) 2 pumps once a day -Patient took this for 2 months and ran out. Had noticed improvement in energy levels and libido while on this medication He has never used testosterone in the past otherwise He does not have history of prostate cancer He is adopted and does not know his family history He is a current smoker and is in the process of quitting Most recent pituitary imaging from 2021 showed an enhancing sellar mass unchanged in size compared to 2018 measuring 1.7 x 2.2 x 1.7 cm with possible extension into right cavernous sinus, no significant suprasellar extension. Optic chiasm is unremarkable He has been on cabergoline since 2013 - current regimen: cabergoline 0.5 mg 1.5 tabs 2 days a week Headaches: No Changes in vision: No Loss of vision: No Problems in blind spots: No Excessive/Constant clear rhinorrhea: No No galactorrhea Problems w/ libido: No Hormone Eval Completed: Yes Patient mentions that formal ophthalmologic evaluation was a few years ago. He is supposed to have followed up with service order expediter Dr. Monge , but has missed his follow-up. No history of pituitary surgeries No history of radiation therapy to the brain No previous malignancy No history of chemotherapy No previous head trauma No history of steroid, narcotic use Primary hypothyroidism: Positive TPO antibodies 06/2012, 99.8 Current regimen: Levothyroxine 100 mcg daily Review of Systems Constitutional: Positive for fatigue. Negative for unexpected weight change. Gastrointestinal: Negative for constipation and diarrhea. Endocrine: Negative for cold intolerance and heat intolerance. An entire ROS was performed at the time of this encounter. Unless noted above in the HPI, the ROS is negative. Allergies Allergen Reactions Meperidine Nausea And Vomiting Demerol Outpatient Medications Prior to Visit Medication Sig Dispense Refill cabergoline (Dostinex) 0.5 MG tablet take 1 1/2 tablet by mouth ON SATURDAY AND SATURDAY 36 tablet 3 fenofibrate (Triglide) 160 MG tablet Take 1 tablet (160 mg) by mouth daily. 90 tablet 1 levothyroxine (Synthroid, Levoxyl) 100 MCG tablet Take 1 tablet (100 mcg) by mouth daily. 90 tablet1 niacin (Niaspan) 1000 MG ER tablet Take 1 tablet (1,000 mg) by mouth daily. 90 tablet 1 rosuvastatin (Crestor) 10 MG tablet Take 1 tablet (10 mg) by mouth daily. 90 tablet 1 tadalafil (Cialis) 5 MG tablet Take 1 tablet (5 mg) by mouth daily. 90 tablet 1 tamsulosin (Flomax) 0.4 MG 24 hr capsule Take 1 capsule (0.4 mg) by mouth daily. 30 capsule 2 Xarelto 20 MG tablet take 1 tablet by mouth with EVENING MEAL take with food 30 tablet 0 Testosterone 20.25 MG/ACT (1.62%) gel Place 2 Pump on the skin daily. (Patient not taking: Reportedon 07/31/2023) 150 g 1 No facility-administered medications prior to visit. Past Medical History: Diagnosis Date Abscess of scrotum 09/15/2020 Last Assessment & Plan: Urology office was contacted and I spoke to the nurse practitioner Farzana and she was going to see if they could rearrange some schedules to get him in [place]. She was going to call and talk with Jaylen. Acute cystitis without hematuria 02/27/2022 Anxiety patrick with surgery Benign neoplasm of pituitary gland and craniopharyngeal duct (pouch) ([facility]) Chest pain, unspecified Chills 05/28/2022 Chronic flank pain Chronic pain Diverticulitis DVT (deep venous thrombosis) ([facility]) 2022 left leg Esophageal reflux Essential hypertension, benign Flank pain 11/27/2021 11/2021 ECG no significant change from prior 2012 (possible old infarct). NSR Troponin negative. Echocardiogram EF 69, no significant valvular disease. Recommend cardiology as outpatient for further workup- likely stress test. - patient d eclining. Last Assessment & Plan: A Hay fever Kidney stone Left leg swelling 11/2022 treated with antibiotics Other abnormal blood chemistry Other and unspecified hyperlipidemia Other anterior pituitary disorders (HCC) Other testicular hypofunction Pituitary tumor Pyelonephritis 12/03/2021 Last Assessment & Plan: Resolved. Tobacco use disorder Unspecified hearing loss Unspecified hypothyroidism UTI (urinary tract infection) Social History Tobacco Use Smoking status: Former Packs/day: 1.00 Years: 40.00 Additional pack years: 0.00 Total pack years: 40.00 Types: Cigarettes Quit date: 03/2022 Years since quittin.3 Smokeless tobacco: Never Substance Use Topics Alcohol use: Yes Alcohol/week: 1.0 standard drink of alcohol Types: 1 Cans of beer per week Comment: occassionally Past Surgical History: Procedure Laterality Date CHOLECYSTECTOMY open COLONOSCOPY KNEE SURGERY Right SMALL INTESTINE SURGERY for diverticulitis THROMBECTOMY Left 12/21/2022 Ileofemoral DVT thrombectomy ([place]) TONSILLECTOMY (HISTORICAL) Family History Adopted: Yes Problem Relation Name Age of Onset No Known Problems Father Cancer Mother lung Objective BP 118/80 Ht 6' 2 (1.88 m) Wt 232 lb (105 kg) BMI 29.79 kg/m Physical Exam Vitals reviewed. Constitutional: General: He is not in acute distress. Appearance: Normal appearance. He is not ill-appearing. HENT: Head: Normocephalic and atraumatic. Mouth/Throat: Mouth: Mucous membranes are moist. Eyes: Extraocular Movements: Extraocular movements intact. Comments: Visual field is grossly intact Cardiovascular: Rate and Rhythm: Normal rate and regular rhythm. Heart sounds: No murmur heard. Pulmonary: Effort: Pulmonary effort is normal. No respiratory distress. Musculoskeletal: General: Swelling (trace left sided ankle) present. Normal range of motion. Cervical back: Normal range of motion. Skin: General: Skin is warm and dry. Neurological: General: No focal deficit present. Mental Status: He is alert and oriented to person, place, and time. Psychiatric: Mood and Affect: Mood normal. Behavior: Behavior normal. Data Reviewed and Summarized Labs: Imaging/Testing: Rocio Ruiz MD Portions of the information within this encounter were entered using an electronic dictation system. Best attempts were made to edit/proofread the information prior to note completion. Despite the review of information, some errors may remain. If there are questions related to the information contained within the note please contact the signing physician directly. documented in this [facility]04-24-2024 Telephone encounter Note* Telephone Encounter - Angela Brandt RN - 06/19/2023 6:50 PM EDT We have been unable to reach your patient to schedule their testing. Test Name: Complete PFT pre and post bronchodilator 1st Attempt: 06/15/2023 mychart message 2nd Attempt: 06/19/2023 LVM. [id number] Miscellaneous Notes* Telephone Encounter - Angela Brandt RN - 06/19/2023 6:50 PM EDT We have been unable to reach your patient to schedule their testing. Test Name: Complete PFT pre and post bronchodilator 1st Attempt: 06/15/2023 mychart message 2nd Attempt: 06/19/2023 LVM. documented in this [facility]03-05-2024 Telephone encounter Note* Telephone Encounter - Isa Cali NP - 04/30/2023 9:36 AM EST Multiple no shows and cancellations. Needs seen in office for refills. Isa [facility] [id number] Miscellaneous Notes* Telephone Encounter - Isa Cali NP - 04/30/2023 9:36 AM EST Multiple no shows and cancellations. Needs seen in office for refills. Isa documented in this [facility]12-20-2023 Discharge summary Author Ryan Ceja [facility] February 13, 2023 3:02pm Note Date/Time February 13, 2023 1:56pm [facility] Medical Records Department [address] [place] [address] Discharge Summary 02/13/23 1345 MR#: [id number] Acct: [id number] Name: JAYLEN QUENE Rep #:[id number] : 1960 62 From: Dolly SHAFFER PCP: CHERYL BASILIO Status:ADM TAMMY Location: [place] [address] Providers Date of Admission: 02/12/23 Primary Care Physician: CHERYL BASILIO Reason For Visit: POSSIBLE THROMDECTOMY Diagnosis Discharge Diagnosis (1) Ileofemoral deep vein thrombosis: Status: Acute Code(s): I82.429 - Acute embolism and thrombosis of unspecified iliac vein Qualifiers: Laterality: left Qualified Code(s): I82.422 - Acute embolism and thrombosis of left iliac vein Medications at Discharge Home Medications cabergoline 0.5 mg tablet 0.5 mg PO 2XW 01/30/23 fenofibrate 160 mg tablet 160 mg PO DAILY 01/30/23 levothyroxine 100 mcg capsule 100 mcg PO DAILY 01/30/23 niacin 1,000 mg tablet,extended release 1,000 mg PO QHS 01/30/23 rivaroxaban 20 mg tablet 20 mg PO QPM 01/30/23 rosuvastatin 10 mg tablet (Crestor) 10 mg PO DAILY 01/30/23 tadalafil 5 mg tablet 5 mg PO DAILY 01/30/23 tamsulosin 0.4 mg capsule 0.4 mg PO DAILY 01/30/23 aspirin 81 mg tablet,delayed release 81 mg PO BREAKFAST #30 tabs 02/13/23 clopidogrel 75 mg tablet 75 mg PO DAILY #30 tabs 02/13/23 oxycodone 5 mg tablet 5 mg PO Q8H PRN PRN Pain Score 4-10 2 days #6 tabs 02/13/23 Hospital Course Operations - (Venogram with thrombectomy and iliac vein stenting) Summary of Care Provided Hospital Course: Mr. Queen is a 62 y/o male who underwent venogram with thrombectomy and iliac vein stenting on 02/12/2023 to address iliofemoral DVT. He tolerated the procedure well. Postoperatively, he was routinely kept for observation and for heparin bridge back to Xarelto. He has remained hemodynamically stable. Following iliac vein stenting, he was initiated on ASA and Plavix which he will continue to take in addition to his home Xarelto. He tolerated therapeutic heparin with no bleeding complications and was transitioned back to Xarelto. Theaccess sites were all satisfactory in appearance. He has been able to tolerate anormal diet and void without difficulty. His postoperative pain is well controlled. He is medically stable for discharge home. He has scheduled outpatient follow-up. Physical Exam Const alert, oriented x3 and no apparent distress General Appearance: cooperative and comfortable Eyes EOMs intact bilaterally General Eye: normal appearance of both eyes Neck full ROM Neck Narrative: Right IJ access site with suture intact and minimal bruising and swelling. No bleeding, redness, warmth, drainage. General: normal visual inspection Resp normal respiratory effort Effort and Inspection: able to speak in complete sentences; Negative for respiratory distress, labored, stridor, retractions or audible wheezes Cardio regular rate and regular rhythm Extremity Extremity Narrative: R groin access site with suture intact and mild bruising, minimal swelling. No erythema, warmth, drainage, bleeding. L thigh access site with suture intact and no significant bruising, swelling, redness, warmth, drainage, bleeding. Neuro oriented x3, CN's II-XII intact bilaterally, moves all extremities and no focal motor deficits Speech: speech normal Psych mental status grossly normal, affect normal, speech normal and activity/motor behavior normal Weight / BMI Weight Weight: 242 lb 8.136 oz Body Mass Index (BMI) 31.1 ABG / Lab / Microbiology Data 02/13/23 02:50 02/12/23 09:30 Laboratory: Laboratory Results - last 24 hr 02/12/23 10:15: Activated Clotting Time 217 H 02/12/23 10:55: Activated Clotting Time 201 H 02/12/23 11:30: Activated Clotting Time 217 H 02/12/23 12:15: Activated Clotting Time 212 H 02/12/23 17:25: APTT 72.0 H 02/12/23 18:50: APTT 48.7 H 02/13/23 02:50: WBC 7.1, RBC 4.10 L, Hgb 12.3 L, Hct 38.0 L, MCV 92.7, MCH 30.0,MCHC 32.4, RDW Std Deviation 45.6 H, RDW Coeff of Mookie 13.4, Plt Count 202, MPV 9.6, Immature Gran % (Auto) 0.300, Neut % (Auto) 77.5 H, Lymph % (Auto) 12.6 L, [place] % (Auto) 8.5, Eos % (Auto) 0.8, Baso % (Auto) 0.3, Absolute Neuts (auto) 5.5, Absolute Lymphs (auto) 0.89, Nucleated RBC % 0, APTT 37.4 H 02/13/23 11:22: APTT 47.0 H D/C Instructions Discharge Diet: No restrictions May shower in (days): 1 Weight Bearing Status: Weight bearing as tolerated Lifting Restricted to (Lbs): 20 Lifting Restrictions: Do not lift greater than 20 pounds for 2 weeks Call your doctor if your incision/area has: Sudden Increased Bleeding, IncreasedPain/ Swelling and Foul Smelling Discharge Call your doctor if you observe: Fever of 101 or Higher and Uncontrolled pain Additional Instructions: You have 3 access sites: right neck, right groin, and left thigh. The access sites were closed with 1 suture each. The sutures should remain in place for at least 1 week. It is okay to leave these sites open to air. You may shower. It is okay for soap and water to rinse over these sites, pat to dry. Do not submerge the access sites in water such as to take a bath, go swimming, etc for 2 weeks. Do not lift greater than 20 pounds for 2 weeks. Otherwise, you may proceed with activity as tolerated. You are to continue taking Xarelto 20mg tablet once daily as you had been prior to the procedure. Please call the office if/when you need a refill. We have added 2 new medications: Aspirin 81mg tablet to be taken by mouth once daily and Plavix 75mg tablet to be taken by mouth once daily. The Aspirin 81mg tablets can be purchased over the counter. The Plavix 75mg tablets are a prescription which has been sent to your pharmacy. You are to continue to take the Xarelto, Plavix, and Aspirin. You have a follow-up appointment in the office on 03/06/23. The office will call you to schedule a 1 week follow-up to have your sutures removed. If you have any questions/concerns or if you need to change your appointment time please contact the office at [phone]. Meaningful Use Info Meaningful Use Diagnoses (Choose all that apply): VTE VTE Anticoag overlap given w/in hospital stay or rx'd at dc?: Yes Pt receive overlap for 5 days?: Yes Discharge Plan Admission Admit Date/Time: 02/12/23 13:55 Primary Reason for Your Visit: Venogram with thrombectomy and iliac vein stenting Attending Provider: Ryan Ceja Primary Care Provider: CHERYL BASILIO Consulting Providers: Fabio Day Instructions Additional Instructions / Restrictions: You have 3 access sites: right neck, right groin, and left thigh. The access sites were closed with 1 suture each. The sutures should remain in place for at least 1 week. It is okay to leave these sites open to air. You may shower. It is okay for soap and water to rinse over these sites, pat to dry. Do not submerge the access sites in water such as to take a bath, go swimming, etc for 2 weeks. Do not lift greater than 20 pounds for 2 weeks. Otherwise, you may proceed with activity as tolerated. You are to continue taking Xarelto 20mg tablet once daily as you had been prior to the procedure. Please call the office if/when you need a refill. We have added 2 new medications: Aspirin 81mg tablet to be taken by mouth once daily and Plavix 75mg tablet to be taken by mouth once daily. The Aspirin 81mg tablets can be purchased over the counter. The Plavix 75mg tablets are a prescription which has been sent to your pharmacy. You are to continue to take theXarelto, Plavix, and Aspirin. You have a follow-up appointment in the office on 03/06/23. The office will call you to schedule a 1 week follow-up to have your sutures removed. If you have any questions/concerns or if you need to change your appointment time please contact the office at [phone]. Discharge Orders/Prescriptions Prescriptions: New clopidogrel 75 mg Tablet 75 mg PO DAILY Qty: 30 2RF aspirin 81 mg Tablet,Delayed Release (Dr/Ec) 81 mg PO BREAKFAST Qty: 30 0RF oxycodone 5 mg Tablet 5 mg PO Q8H PRN PRN (Reason: Pain Score 4-10) 2 Days Qty: 6 0RF Continued cabergoline 0.5 mg tablet 0.5 mg PO 2XW Rx Instructions: take 1 1/2 tab by mouth on and Sat fenofibrate 160 mg tablet 160 mg PO DAILY levothyroxine 100 mcg capsule 100 mcg PO DAILY niacin 1,000 mg tablet extended release 1,000 mg PO QHS rivaroxaban 20 mg tablet 20 mg PO QPM Rx Instructions: must administer with evening meal rosuvastatin [Crestor] 10 mg tablet 10 mg PO DAILY tadalafil 5 mg tablet 5 mg PO DAILY tamsulosin 0.4 mg capsule 0.4 mg PO DAILY Other Ambulatory Orders: 12 Lead EKG (Routine) Timeframe: [id number] Location: None Selected Ordered By: Dr. Fabio Day Disposition Disposition (needs filled in before D/C Order can be placed): Home, Self Care 02/13/23 1408 <Electronically signed by Dolly SHAFFER> Cosigner Signature (if applicable): 02/13/23 1502 <Electronically signed by Ryan Ceja MD> CC: EDMUND Jovel; Dr. Ryan Ceja MD; CHERYL BASILIO~ Signed [facility] Work Phone: 1(885) 708-710012-20-2023 Progress note Author Ryan [facility] February 13, 2023 3:02pm Note Date/Time February 13, 2023 12:22pm [facility] Medical Records Department [address] [place] [id number] Progress Note - Surgery 02/13/23 1218 MR#: [id number] Acct: [id number] Name: JAYLEN QUEEN Rep #:[id number] : 1960 62 From: Dolly SHAFFER PCP: CHERYL BASILIO Status:ADM TAMMY Location: [facility] [id number] Subjective Subjective Mr. Queen is s/p venogram with thrombectomy and L iliac vein stenting performedunder general anesthesia yesterday. This morning he is feeling good. Had nausea overnight which has resolved. He has some soreness at the access sites, but not too bothersome. No bleeding. Voiding without difficulty. He denies any numbness or pain into left foot. Objective Data Objective Data Vital Signs: Vital Signs Temp Pulse Resp BP Pulse Ox O2 Del Method 97.7 F L 65 18 133/75 H 100 Room Air 02/13/23 08:20 02/13/23 08:20 02/13/23 08:20 02/13/23 08:20 02/13/23 08:20 02/13/23 08:20 Oxygen Delivery Method Room Air Weight: 242 lb 8.136 oz Body Mass Index (BMI) 31.1 Intake & Output: Intake and Output for Last 24 Hours 02/11/23 02/12/23 02/13/23 23:59 23:59 23:59 Intake Total 205.50 / 205.50 1584.84 / 1584.84 Output Total 650 / 650 300 / 300 Balance -444.50 / -444.50 1284.84 / 1284.84 Lab / Micro Data 02/13/23 02:50 02/12/23 09:30 Labs: Laboratory Results - last 24 hr 02/12/23 10:15: Activated Clotting Time 217 H 02/12/23 10:55: Activated Clotting Time 201 H 02/12/23 11:30: Activated Clotting Time 217 H 02/12/23 12:15: Activated Clotting Time 212 H 02/12/23 17:25: APTT 72.0 H 02/12/23 18:50: APTT 48.7 H 02/13/23 02:50: WBC 7.1, RBC 4.10 L, Hgb 12.3 L, Hct 38.0 L, MCV 92.7, MCH 30.0,MCHC 32.4, RDW Std Deviation 45.6 H, RDW Coeff of Mookie 13.4, Plt Count 202, MPV 9.6, Immature Gran % (Auto) 0.300, Neut % (Auto) 77.5 H, Lymph % (Auto) 12.6 L, [place] % (Auto) 8.5, Eos % (Auto) 0.8, Baso % (Auto) 0.3, Absolute Neuts (auto) 5.5, Absolute Lymphs (auto) 0.89, Nucleated RBC % 0, APTT 37.4 H 02/13/23 11:22: APTT 47.0 H Physical Exam Const alert, oriented x3 and no apparent distress General Appearance: cooperative and comfortable Eyes EOMs intact bilaterally General Eye: normal appearance of both eyes Neck full ROM Neck Narrative: Right IJ access site with minimal bruising and swelling. No bleeding, redness, warmth, drainage. General: normal visual inspection Resp normal respiratory effort Effort and Inspection: able to speak in complete sentences; Negative for respiratory distress, labored, stridor, retractions or audible wheezes Cardio regular rate and regular rhythm Extremity Extremity Narrative: R groin access site with mild bruising, minimal swelling. No erythema, warmth, drainage, bleeding. L thigh access site with no significant bruising, swelling, redness, warmth, drainage, bleeding. Neuro oriented x3, CN's II-XII intact bilaterally, moves all extremities and no focal motor deficits Speech: speech normal Psych mental status grossly normal, affect normal, speech normal and activity/motor behavior normal Assessment & Plan Assessment/Plan (1) Ileofemoral deep vein thrombosis: QUALIFIERS: Laterality: left Qualified Code(s): I82.422 - Acute embolism and thrombosis of left iliac vein PLAN: Patient is doing well this morning. No bleeding from access sites while ontherapeutic heparin, sutures are intact. He reports his leg already seems less swollen and overall feeling good. Minimal pain at the access site. Voiding without difficulty and tolerating diet. Will d/c heparin now. Restart Xarelto in 1 hour and then can discharge home after that. He has outpatient follow-up scheduled in the office. 02/13/23 1343 <Electronically signed by Dolly SHAFFER> Cosigner Signature (if applicable): 02/13/23 1502 <Electronically signed by Ryan Ceja MD> CC: ~ Signed [facility] Work Phone: 1(221) 766-531212-20-2023 Procedure [facility] 01-25-2023 Telephone encounter Note* Telephone Encounter - Rocio Ruiz MD - 01/25/2023 9:44 AM EST 90 day supply for cabergoiline [id number] Miscellaneous Notes* Telephone Encounter - Rocio Ruiz MD - 01/25/2023 9:44 AM EST 90 day supply for cabergoiline sent * Telephone Encounter - Lilia Hart - 01/25/2023 8:46 AM EST Name of caller: Jaylen Contact phone number: [phone] Relationship to Patient: patient Provider: Dr Ruiz Practice: Endo Chief Complaint/Reason for Call: Pt states that Dr Mendoza was aware that the pt was on vacation and thatDr Reji wanted to know immediately when the pt came back in town so that a prescription of a 90 day supply of cabergoline (Dostinex) 0.5 MG tablet [[id number]] would be call [facility] on [facility]. Pt states is all out of the medication. Please advise Best time of day caller can be reached: Any Patient advised that office/PCP has 24-48 business hours to return their call: Yes documented in this encounterSProtestant Deaconess [id number] Telephone encounter Note* Telephone Encounter - Lilia Hart - 01/25/2023 8:46 AM EST Name of caller: Jaylen Contact phone number: [phone] Relationship to Patient: patient Provider: Dr Ruiz Practice: Endo Chief Complaint/Reason for Call: Pt states that Dr Mendoza was aware that the pt was on vacation and thatDr Reji wanted to know immediately when the pt came back in town so that a prescription of a 90 day supply of cabergoline (Dostinex) 0.5 MG tablet [[id number]] would be call in to the [facility] pharmacy on file. Pt states is all out of the medication. Please advise Best time of day caller can be reached: Any Patient advised that office/PCP has 24-48 business hours to return their call: Yes [id number] Telephone encounter Note* Telephone Encounter - Alma Beebe MA - 01/08/2023 11:51 AM EST Submitted PA for testosterone pump 2 pumps daily for 150g for a 30 day supply. Waiting on determination from [facility] [id number] Miscellaneous Notes* Telephone Encounter - Alma Beebe MA - 01/08/2023 11:51 AM EST Submitted PA for testosterone pump 2 pumps daily for 150g for a 30 day supply. Waiting on determination from [facility]. * Telephone Encounter - Rocio Ruiz MD - 01/04/2023 12:38 PM EST Was informed by pharmacy that prescription for androgel needs prior auth , can you please help withthis ? Thanks * Telephone Encounter - Rocio Ruiz MD - 01/04/2023 12:23 PM EST Images from the original note were not included. Patient was here in the clinic to discuss about his labs Labs show slightly elevated prolactin -probable he may have missed a few doses of cabergoline. Hence no change has been made to the dose. Advised to continue current dose of cabergoline consistently and have labs checked in 3 months Otherwise results of thyroid functions are normal Renal functions and liver functions are normal He continues to have mild hypercalcemia with high normal PTH. Advised to have bone density and 24-hour urine testing for calcium levels checked Testosterone level continues to be low with low normal LH and FSH PSA is normal Discussed about different formulations of testosterone We will start AndroGel 1.62% (20.25 Mg) 2 pumps once a day Advised to have testosterone and hemoglobin checked in 3 months Component Latest Ref Rng & Units 01/03/2023 TESTOSTERONE 72 - 623 ng/dL 103 * Telephone Encounter - Alma Beebe MA - 01/04/2023 11:36 AM EST It looks like you sent the cabergoline in on 01/02/23, but does he take testosterone? I do not see it. * Telephone Encounter - Pacheco Dobson - 01/04/2023 11:05 AM EST Name of caller: Jaylen Contact phone number: [phone] Relationship to Patient: patient Provider: Joseph Practice: Endo Chief Complaint/Reason for Call: Pt is asking to speak to the office about his testosterone and dostinex scripts. He says they both need filled today at the local pharmacy. Pt is also asking about the recent lab results. Best time of day caller can be reached: PM Patient advised that office/PCP has 24-48 business hours to return their call: Yes documented in this encounterSProtestant Deaconess [id number] Telephone encounter Note* Telephone Encounter - Rocio Ruiz MD - 01/04/2023 12:38 PM EST Was informed by pharmacy that prescription for androgel needs prior auth , can you please help withthis ? Thanks [facility] [id number] Telephone encounter Note* Telephone Encounter - Rocio Ruiz MD - 01/04/2023 12:23 PM EST Images from the original note were not included. Patient was here in the clinic to discuss about his labs Labs show slightly elevated prolactin -probable he may have missed a few doses of cabergoline. Hence no change has been made to the dose. Advised to continue current dose of cabergoline consistently and have labs checked in 3 months Otherwise results of thyroid functions are normal Renal functions and liver functions are normal He continues to have mild hypercalcemia with high normal PTH. Advised to have bone density and 24-hour urine testing for calcium levels checked Testosterone level continues to be low with low normal LH and FSH PSA is normal Discussed about different formulations of testosterone We will start AndroGel 1.62% (20.25 Mg) 2 pumps once a day Advised to have testosterone and hemoglobin checked in 3 months Component Latest Ref Rng & Units 01/03/2023 TESTOSTERONE 72 - 623 ng/dL 103 [employer]11-10-2023 Telephone encounter Note* Telephone Encounter - Alma Beebe MA - 01/04/2023 11:36 AM EST It looks like you sent the cabergoline in on 01/02/23, but does he take testosterone? I do not see it. [employer]11-10-2023 Telephone encounter Note* Telephone Encounter - Pacheco Dobson - 01/04/2023 11:05 AM EST Name of caller: Jaylen Contact phone number: [phone] Relationship to Patient: patient Provider: Joseph Practice: [facility] Chief Complaint/Reason for Call: Pt is asking to speak to the office about his testosterone and dostinex scripts. He says they both need filled today at the local pharmacy. Pt is also asking about the recent lab results. Best time of day caller can be reached: PM Patient advised that office/PCP has 24-48 business hours to return their call: Yes [employer]11-08-2023 Telephone encounter Note* Telephone Encounter - Rocio Ruiz MD - 01/02/2023 4:56 PM EST called and spoke with pharmacist, insurance will not cover a 90-day supply right now but will covera 30-day supply. Prescription for 30 days sent to the pharmacy, informed patient. [facility] [id number] Miscellaneous Notes* Telephone Encounter - Rocio Ruiz MD - 01/02/2023 4:56 PM EST called and spoke with pharmacist, insurance will not cover a 90-day supply right now but will covera 30-day supply. Prescription for 30 days sent to the pharmacy, informed patient. * Telephone Encounter - Daphne Hayden - 01/02/2023 4:43 PM EST Pt called and states that pharmacy refuses to refill the cabergoline Script that you sent in today. States that they can not refill until 01/24/23 and he will be without medication for 2 weeks by that point and will also be out of town on that date. Pt requesting a call back TEVIN. documented in this encounterSProtestant Deaconess [id number] Telephone encounter Note* Telephone Encounter - Daphne Hayden - 01/02/2023 4:43 PM EST Pt called and states that pharmacy refuses to refill the cabergoline Script that you sent in today. States that they can not refill until 01/24/23 and he will be without medication for 2 weeks by that point and will also be out of town on that date. Pt requesting a call back TEVIN. [facility] [id number] History of Present illness Narrative* Rocio Ruiz MD - 01/02/2023 10:40 AM EST Images from the original note were not included. [facility] [address] [address] [facility] [address] Dept: [phone] Dept Loc: [phone] Visit type: Established Reason for Visit: Follow-up, Hypothyroidism, and pituitary macroprolactinoma Assessment and Plan 1. Macroprolactinoma (HCC) - Prolactin - cabergoline (Dostinex) 0.5 MG tablet; take 1 1/2 tablet by mouth ON SATURDAY AND SATURDAY, Normal 2. Pituitary adenoma (HCC) - Luteinizing hormone - Follicle stimulating hormone - Testosterone - Hemoglobin and hematocrit, blood - PSA Total (Screening) - TSH - T4, free 3. 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 Hypercalcemia - PTH, intact - Calcium, ionized - Vitamin D Deficiency Screening (Vit D 25) - Comprehensive metabolic panel 1. Pituitary macroadenoma-prolactinoma - Overall pituitary tumor had decreased in size since 2013 and remained stable ib most recent MRI in 2021 - current regimen: cabergoline 1.5 tabs 2 days a week -last prolactin level in September 2021 was normal -Continue current dose of cabergoline - recheck prolactin - advised to complete formal Visual field examination - Clinically no Compressive symptoms - Further management will be based on the above labs - Patient endorses the symptoms of erectile dysfunction. He has had low testosterone in the past but has never been on treatment for the same. Check testosterone along with LH, FSH, PSA, hemoglobin and hematocrit 2. Stanley's hypothyroidism - Positive TPO antibodies 06/2012, 99.8 - Current regimen: Levothyroxine 100 mcg daily -Check thyroid functions 3.Hypercalcemia - Patient has had mild intermittent hypercalcemia since at least 2018, PTH levels checked have beennormal between 27-32 In the past hypercalcemia was attributed to lab assay, increase dietary intake of calcium - Work-up done in the past showed normal SPEP and 24 hour urine calcium spillage - Most recent bone density is normal as well - check BMP, PTH, vitamin D I reviewed: laboratory results reviewed: Yes radiographic reports reviewed: Yes I reviewed the radiographic images personally at the time of today's visit: Yes Pt was advised of the results. Records from outside facility/PCP office to be requested: No Scripts sent to pharmacy of pt choice: Yes Follow up in about 6 months (around 07/03/2023). Subjective HPI PCP is Cheryl Basilio MD Referring is PCP Previous New Patient Escort: Dr Sal & [facility] Last office visit: August 2021 1.Prolactinoma - Pituitary Macroadenoma: This was diagnosed in 10/2012 when he had presented with headaches , double vision to [facility] and pituitary MRI had shown a 3 cm macroadenoma. Overall pituitary testing in the past had normal IGF-I, normal cortisol and ACTH. Testosterone was low but since patient was asymptomatic , this was not treated /rechecked Most recent pituitary imaging showed an enhancing sellar mass unchanged in size compared to 2019 measuring 1.7 x 2.2 x 1.7 cm with possible extension into right cavernous sinus, no significant suprasellar extension. Optic chiasm is unremarkable He has been on cabergoline since 2013 - current regimen: cabergoline 1.5 tabs 2 days a week Headaches: No - headaches have resolved after starting cabergoline Changes in vision: No Loss of vision: No Problems in blind spots: No Excessive/Constant clear rhinorrhea: No No galactorrhea Problems w/ libido: No Hormone Eval Completed: Yes Patient mentions that formal ophthalmologic evaluation was a few years ago. He is supposed to have followed up with service order expediter Dr. Monge , but has missed his follow-up. No history of pituitary surgeries No history of radiation therapy to the brain No previous malignancy No history of chemotherapy No previous head trauma No history of steroid, narcotic use Primary hypothyroidism: Positive TPO antibodies 06/2012, 99.8 Current regimen: Levothyroxine 100 mcg daily Interval history: Patient has had to take Cialis as needed for the last few years He has had erectile dysfunction over the last few years Libido is normal He has never used testosterone in the past He does not have history of prostate cancer He is adopted and does not know his family history He is a current smoker and is in the process of quitting Review of Systems Constitutional: Positive for fatigue. Negative for unexpected weight change. Gastrointestinal: Negative for constipation and diarrhea. Endocrine: Negative for cold intolerance and heat intolerance. An entire ROS was performed at the time of this encounter. Unless noted above in the HPI, the ROS is negative. Allergies Allergen Reactions Meperidine Nausea And Vomiting Demerol Outpatient Medications Prior to Visit Medication Sig Dispense Refill fenofibrate (Triglide) 160 MG tablet Take 1 tablet (160 mg) by mouth daily. 90 tablet 1 levothyroxine (Synthroid, Levoxyl) 100 MCG tablet Take 1 tablet (100 mcg) by mouth daily. 90 tablet1 niacin (Niaspan) 1000 MG ER tablet Take 1 tablet (1,000 mg) by mouth daily. 90 tablet 1 rivaroxaban (Xarelto) 20 MG tablet Take 1 tablet (20 mg) by mouth with evening meal. Take with food. 30 tablet 0 rosuvastatin (Crestor) 10 MG tablet Take 1 tablet (10 mg) by mouth daily. 90 tablet 1 tadalafil (Cialis) 5 MG tablet Take 1 tablet (5 mg) by mouth daily. 90 tablet 1 tamsulosin (Flomax) 0.4 MG 24 hr capsule Take 1 capsule (0.4 mg) by mouth daily. 30 capsule 2 cabergoline (Dostinex) 0.5 MG tablet take 1 1/2 tablet by mouth ON SATURDAY AND SATURDAY 36 tablet 1 No facility-administered medications prior to visit. Past Medical History: Diagnosis Date Abscess of scrotum 09/15/2020 Last Assessment & Plan: Urology office was contacted and I spoke to the nurse practitioner Farzana and she was going to see if they could rearrange some schedules to get him in [place]. She was going to call and talk with Jaylen. Acute cystitis without hematuria 02/27/2022 Anxiety patrick with surgery Benign neoplasm of pituitary gland and craniopharyngeal duct (pouch) ([facility]) Chest pain, unspecified Chills 05/28/2022 Chronic flank pain Chronic pain Diverticulitis DVT (deep venous thrombosis) ([facility]) 2022 left leg Esophageal reflux Essential hypertension, benign Flank pain 11/27/2021 11/2021 ECG no significant change from prior 2012 (possible old infarct). NSR Troponin negative. Echocardiogram EF 69, no significant valvular disease. Recommend cardiology as outpatient for further workup- likely stress test. - patient d eclining. Last Assessment & Plan: A Hay fever Kidney stone Left leg swelling 11/2022 treated with antibiotics Other abnormal blood chemistry Other and unspecified hyperlipidemia Other anterior pituitary disorders (HCC) Other testicular hypofunction Pituitary tumor Pyelonephritis 12/03/2021 Last Assessment & Plan: Resolved. Tobacco use disorder Unspecified hearing loss Unspecified hypothyroidism UTI (urinary tract infection) Social History Tobacco Use Smoking status: Former Packs/day: 1.00 Years: 40.00 Additional pack years: 0.00 Total pack years: 40.00 Types: Cigarettes Quit date: 03/2022 Years since quittin.7 Smokeless tobacco: Never Substance Use Topics Alcohol use: Yes Alcohol/week: 1.0 standard drink of alcohol Types: 1 Cans of beer per week Comment: occassionally Past Surgical History: Procedure Laterality Date CHOLECYSTECTOMY open COLONOSCOPY KNEE SURGERY Right SMALL INTESTINE SURGERY for diverticulitis THROMBECTOMY Left 12/21/2022 Ileofemoral DVT thrombectomy ([place]) TONSILLECTOMY (HISTORICAL) Family History Adopted: Yes Problem Relation Name Age of Onset No Known Problems Father Cancer Mother lung Objective BP 122/62 Pulse 80 Ht 6' 2 (1.88 m) Wt 243 lb (110 kg) BMI 31.20 kg/m Physical Exam Vitals reviewed. Constitutional: General: He is not in acute distress. Appearance: Normal appearance. He is not ill-appearing. HENT: Head: Normocephalic and atraumatic. Mouth/Throat: Mouth: Mucous membranes are moist. Eyes: Extraocular Movements: Extraocular movements intact. Comments: Visual field is grossly intact Cardiovascular: Rate and Rhythm: Normal rate and regular rhythm. Heart sounds: No murmur heard. Pulmonary: Effort: Pulmonary effort is normal. No respiratory distress. Musculoskeletal: General: Swelling present. Normal range of motion. Cervical back: Normal range of motion. Skin: General: Skin is warm and dry. Neurological: General: No focal deficit present. Mental Status: He is alert and oriented to person, place, and time. Psychiatric: Mood and Affect: Mood normal. Behavior: Behavior normal. Data Reviewed and Summarized Labs: Imaging/Testing: Rocio Ruiz MD Portions of the information within this encounter were entered using an electronic dictation system. Best attempts were made to edit/proofread the information prior to note completion. Despite the review of information, some errors may remain. If there are questions related to the information contained within the note please contact the signing physician directly. documented in this [facility]11-08-2023 Miscellaneous Notes* Addendum Note - Jocelyne Kat - 01/02/2023 10:40 AM ESTAddended by: JOCELYNE KAT on: 01/03/2023 08:18 AM Modules accepted: Orders documented in this [facility]11-08-2023 Note* Addendum Note - Jocelyne Kat - 01/02/2023 10:40 AM ESTAddended by: JOCELYNE KAT on: 01/03/2023 08:18 AM Modules accepted: [id number] NoteAddended by: JOCELYNE KAT on: 01/03/2023 08:18 AM Modules accepted: [facility]11-08-2023 History of Present illness Narrative* Jacob Arauz MD - 01/02/2023 8:30 AM EST 01/02/2023 Jaylen Queen 1960 Chief Complaint Patient presents with Post-op 1st po L iliofemoral DVT thrombectomy 12/21/22 Patient returns for post operative evaluation status post attempted thrombectomy of a chronic left iliofemoral DVT which was not successful. The wire would not pass to the vena cava.. Nothing is changed however he is upset that the leg still aches and is swollen and wants to know if there is any other option elsewhere. Past Surgical History: Procedure Laterality Date CHOLECYSTECTOMY open COLONOSCOPY KNEE SURGERY Right SMALL INTESTINE SURGERY for diverticulitis THROMBECTOMY Left 12/21/2022 Ileofemoral DVT thrombectomy ([place]) TONSILLECTOMY (HISTORICAL) Physical Exam: The puncture site is healing without evidence of infection. Mild left foot edema. No ulcerations. Intact gait Assessment: Post-operative left leg venogram. Problem List Items Addressed This Visit Circulatory Chronic deep vein thrombosis (DVT) of iliofemoral vein (HCC) - Primary I reviewed with the patient that normal activities can be resumed as tolerated. Plan: continue xarelto. Encouraged compression stockings - start with a lower strength and work hisway up. We discussed that he can consider a jugular approach, but this is by no means a guarantee Follow up for any concerns. . documented in this [facility]10-31-2023 Hospital Discharge instructions* Discharge Instructions* Pacheco Ortiz MD - 12/25/2022 7:46 PM EDT Please return to the Emergency Department immediately for new or worsening symptoms or any new concerns, this includes pain, swelling, recurrent bleeding, fever chills, lightheadedness or dizziness, numbness or weakness. Please follow-up with your vascular surgeon in the next 2-3 days for further postop management. * Attachments The following attachments cannot be sent through Care Everywhere. * Bleeding After Surgery ([place]) documented in this [facility]10-31-2023 Emergency department Note* Pacheco Ortiz MD - 12/25/2022 6:40 PM EDT Emergency Department Encounter [facility] ED Patient: Jaylen Queen : 1960 Date of Evaluation: 12/25/2022 ED Provider: Pacheco Ortiz MD Note: I wore an N95 mask and gloves during this encounter. CHIEF COMPLAINT: post op bleeding Chief Complaint Patient presents with Post-op Problem Surgery today for clot removal in left lower leg, presenting status post-op saturated tegaderm and gauze behind the left knee, blood draining down leg upon arrival HPI: Jaylen Queen is a 62 y.o. male with PMH per EMR including chronic lower extremity DVT, presents with concern for postop bleeding. Patient reports earlier today he had procedure for clot removal of DVT, reports this evening he had bleeding from operative site in the left posterior knee, he reportssmall area of saturation of his jeans in the area of incision site, denies significant blood loss, denies left leg pain, numbness or weakness, fever chills, chest pain, shortness of breath, lightheadedness or dizziness, abdominal pain, or other symptoms or concerns. REVIEW OF SYSTEMS: Pertinent positives and negatives as per HPI. HISTORIES: PAST MEDICAL HISTORY: as per HPI SOCIAL HISTORY: Per EMR history of tobacco use, alcohol use, marijuana use MEDICATIONS: Nursing notes and EMR reviewed ALLERGIES: Nursing notes and EMR reviewed PHYSICAL EXAM: Vital signs: reviewed General: no apparent discomfort, well appearing Eyes: no conjunctival injection, eyes tracking HEENT: airway patent, mucous membranes moist Cardiovascular: regular rhythm, normal rate, left DP pulse palpable, left leg warm and well-perfused Respiratory: non-labored breathing, breath sounds clear, no wheezing crackles or rhonchi Gastrointestinal: soft, non-distended, non-tender throughout Extremities: Mildly edematous left lower extremity, no erythema or warmth, pressure dressing in place over the knee and popliteal fossa, no active bleeding Integumentary: warm, dry Neurologic: alert, no obvious neurologic deficits, wiggles left toes, sensation intact left foot MEDICAL DECISION MAKING: Medications erythromycin (Romycin) 5 MG/GM ophthalmic ointment (has no administration in time range) Jaylen Queen is a 62 y.o. male who presents as above, per EMR op note today Dr. Arauz underwent procedure for chronic deep vein thrombosis clot removal, accessed in the left popliteal fossa, presents with concern for postoperative bleeding, he arrives afebrile hypertensive otherwise reassuring vitals, neurovascular intact, pressure dressing placed upon arrival, he denies symptoms to suggest symptomatic anemia, denies other symptoms or concerns. Discussed with patient obtaining laboratory evaluation to assess hemoglobin, patient elects to decline laboratory evaluation. Note: Patient reports he was supposed to be prescribed erythromycin ointment at time of discharge today however prescription was not received at his pharmacy, confirmed per EMR nurse navigator note [phone] today, confirmed, will prescribe erythromycin eye ointment at patient's request. Patient reevaluated at 1 hour length of stay, postoperative wound with hemostasis, no palpable hematoma, nonpressure dressing placed, further management discussed, patient and agree with plan for discharge, recommend close follow-up with established vascular surgeon for further postop care, return p recautions provided, prescription erythromycin provided as above, patient in agreement with plan, stable for discharge. DIAGNOSIS: bleeding (postoperative wound) DISPOSITION: Discharge PRESCRIPTIONS: New Prescriptions ERYTHROMYCIN (ROMYCIN) 5 MG/GM OPHTHALMIC OINTMENT Apply 1 Application to affected eye(s) in the morning and 1 Application at noon and 1 Application in the evening and 1 Application before bedtime. Do all this for [address] a 1/2 inch ribbon of ointment into the lower eyelid. Comment: Please note this report has been produced using speech recognition software and may contain errors related to that system including errors in grammar, punctuation, and spelling, as well as words and phrases that may be inappropriate. If there are any questions or concerns please feel free to contact the dictating provider for clarification. Pacheco Ortiz MD Acute [facility] Pacheco Ortiz MD 12/25/222016 * Paola Paula RN - 12/25/2022 6:40 PM EDT Patient ambulatory to room 4 presenting status post-op with drainage from site. Patient had an attempted thrombectomy of the left lower leg today with entry behind the left knee; he presents with shadowing on his jeans, and saturated dressing post-op. Surgery was around noon, he was discharged fromthe hospital around 5pm, and when he got home at 6pm he felt blood draining down his leg. Vital signs are stable in triage. Physician bedside and post-op dressing removed, dressing is saturated, but is not actively bleeding; physician and RN applied pressure dressing to site including gauze and acewrap. He reports that he takes xarelto, but stopped yesterday and did not take it today preparing for surgery. Call light in reach. * Sierra Brewer RN - 12/25/2022 6:40 PM EDT Bleeding subsided. Pt given dc instructions and follow up care. Pt verbalizes understanding. Pt ambindep to dc area, home w family documented in this [facility]10-31-2023 Emergency department Triage note* Paola Paula RN - 12/25/2022 6:40 PM EDT Patient ambulatory to room 4 presenting status post-op with drainage from site. Patient had an attempted thrombectomy of the left lower leg today with entry behind the left knee; he presents with shadowing on his jeans, and saturated dressing post-op. [facility], and when he got home at 6pm he felt blood draining down his leg. Vital signs are stable in triage. Physician bedside and post-op dressing removed, dressing is saturated, but is not actively bleeding; physician and RN applied pressure dressing to site including gauze and acewrap. He reports that he takes xarelto, but stopped yesterday and did not take it today preparing for surgery. Call light in reach. [id number] Emergency department Triage note* Sierra Brewer RN - 12/25/2022 6:40 PM EDT Bleeding subsided. Pt given dc instructions and follow up care. Pt verbalizes understanding. Pt ambindep to dc area, home w family [id number] Physician Emergency department Note* Pacheco Ortiz MD - 12/25/2022 6:40 PM EDT Emergency Department Encounter [facility] ED Patient: Jaylen Queen : 1960 Date of Evaluation: 12/25/2022 ED Provider: Pacheco Ortiz MD Note: I wore an N95 mask and gloves during this encounter. CHIEF COMPLAINT: post op bleeding Chief Complaint Patient presents with Post-op Problem Surgery today for clot removal in left lower leg, presenting status post-op saturated tegaderm and gauze behind the left knee, blood draining down leg upon arrival HPI: Jaylen Queen is a 62 y.o. male with PMH per EMR including chronic lower extremity DVT, presents with concern for postop bleeding. Patient reports earlier today he had procedure for clot removal of DVT, reports this evening he had bleeding from operative site in the left posterior knee, he reportssmall area of saturation of his jeans in the area of incision site, denies significant blood loss, denies left leg pain, numbness or weakness, fever chills, chest pain, shortness of breath, lightheadedness or dizziness, abdominal pain, or other symptoms or concerns. REVIEW OF SYSTEMS: Pertinent positives and negatives as per HPI. HISTORIES: PAST MEDICAL HISTORY: as per HPI SOCIAL HISTORY: Per EMR history of tobacco use, alcohol use, marijuana use MEDICATIONS: Nursing notes and EMR reviewed ALLERGIES: Nursing notes and EMR reviewed PHYSICAL EXAM: Vital signs: reviewed General: no apparent discomfort, well appearing Eyes: no conjunctival injection, eyes tracking HEENT: airway patent, mucous membranes moist Cardiovascular: regular rhythm, normal rate, left DP pulse palpable, left leg warm and well-perfused Respiratory: non-labored breathing, breath sounds clear, no wheezing crackles or rhonchi Gastrointestinal: soft, non-distended, non-tender throughout Extremities: Mildly edematous left lower extremity, no erythema or warmth, pressure dressing in place over the knee and popliteal fossa, no active bleeding Integumentary: warm, dry Neurologic: alert, no obvious neurologic deficits, wiggles left toes, sensation intact left foot MEDICAL DECISION MAKING: Medications erythromycin (Romycin) 5 MG/GM ophthalmic ointment (has no administration in time range) Jaylen Queen is a 62 y.o. male who presents as above, per EMR op note today Dr. Arauz underwent procedure for chronic deep vein thrombosis clot removal, accessed in the left popliteal fossa, presents with concern for postoperative bleeding, he arrives afebrile hypertensive otherwise reassuring vitals, neurovascular intact, pressure dressing placed upon arrival, he denies symptoms to suggest symptomatic anemia, denies other symptoms or concerns. Discussed with patient obtaining laboratory evaluation to assess hemoglobin, patient elects to decline laboratory evaluation. Note: Patient reports he was supposed to be prescribed erythromycin ointment at time of discharge today however prescription was not received at his pharmacy, confirmed per EMR nurse navigator note [phone] today, confirmed, will prescribe erythromycin eye ointment at patient's request. Patient reevaluated at 1 hour length of stay, postoperative wound with hemostasis, no palpable hematoma, nonpressure dressing placed, further management discussed, patient and agree with plan for discharge, recommend close follow-up with established vascular surgeon for further postop care, return p recautions provided, prescription erythromycin provided as above, patient in agreement with plan, stable for discharge. DIAGNOSIS: bleeding (postoperative wound) DISPOSITION: Discharge PRESCRIPTIONS: New Prescriptions ERYTHROMYCIN (ROMYCIN) 5 MG/GM OPHTHALMIC OINTMENT Apply 1 Application to affected eye(s) in the morning and 1 Application at noon and 1 Application in the evening and 1 Application before bedtime. Do all this for [address] a 1/2 inch ribbon of ointment into the lower eyelid. Comment: Please note this report has been produced using speech recognition software and may contain errors related to that system including errors in grammar, punctuation, and spelling, as well as words and phrases that may be inappropriate. If there are any questions or concerns please feel free to contact the dictating provider for clarification. Pacheco Ortiz MD Acute Care [facility] Pacheco Ortiz MD 12/25/222016 [facility] [id number] Note* Nurse Navigation Note - Charley Miguel RN - 12/25/2022 4:58 PM EDT Patient upset wanting to leave,eye drops called to his pharmacy, patient transported out via w/c with the daughter [facility] [id number] Miscellaneous Notes* Nurse Navigation Note - Charley Miguel RN - 12/25/2022 4:58 PM EDT Patient upset wanting to leave,eye drops called to his pharmacy, patient transported out via w/c with the daughter * Nurse Navigation Note - Charley Miguel RN - 12/25/2022 4:12 PM EDT Patient post bedrest is complains of left eye pain and light sensitivity, upon attempting to open the eye, Dr Cornelius contacted and re recommends eye oint for 2 days and follow up with eye MD if no better in 2 days , Resident Pacheco Santiago notified they will place new orders. * Nurse Navigation Note - Charley Miguel RN - 12/25/2022 4:03 PM EDT Discharge instructions reviewed with the patient and the daughter, patient to follow up with after discharge, no further questions , patient instructed on surgical site care. * Perioperative Nursing Note - Charley Miguel RN - 12/25/2022 3:52 PM EDT Daughter called to the room * Perioperative Nursing Note - Charley Miguel RN - 12/25/2022 2:49 PM EDT Family member updated Maury daughter regarding current status and bedrest * Nurse Navigation Note - Charley Miguel RN - 12/25/2022 2:27 PM EDT Family notified of arrival to [facility] * Op Note - Jacob Arauz MD - 12/25/2022 12:07 PM EDT OPERATIVE REPORT SURGEON: JACOB ARAUZ M.D. Procedures: Left leg venogram. Preoperative Diagnosis: Chronic deep venous thrombosis of the left iliofemoral system. Postoperative Diagnosis: Same. Anesthesia: General. Estimated Blood Loss: 10 cc. COMPLICATIONS: None Indications: The patient presents with swelling of the left lower extremity since left iliofemoral DVT in September of this year. He is anticoagulated with heparin. He requests attempted percutaneous venous thrombectomy for improvement of symptoms and sequalae. He was explained that this is an elective procedure and no guarantees or promises were made. Findings: Chronic thrombus of the left popliteal vein, femoral vein, left common femoral vein, and distal left external iliac vein. The thrombus in the left external iliac vein could not be traveresed with a guidewire. Description of Procedure: After informed consent, the patient was brought to the hybrid operating room and placed prone. Bilateral popliteal fossa were prepped and draped in sterile fashion. Using ultrasound guidance, a micropuncture needle was placed percutaneously in the left popliteal vein in a retrograde manner and exchanged over a wire for a 8-Turkmen sheath tjo the level of the right common f emoral vein. The chronic thrombosis of the left external iliac vein could not be crossed with multiple guidewires and catheters. Venograms within the thrombus were performed. The sheath was removed. Manual pressure was held on the popliteal vein for 5 minutes. There was excellent hemostasis. The patient tolerated the procedure well, and was transferred to recovery room in stable condition. JACOB ARAUZ MD documented in this [facility]10-31-2023 Note* Nurse Navigation Note - Charley Miguel RN - 12/25/2022 4:12 PM EDT Patient post bedrest is complains of left eye pain and light sensitivity, upon attempting to open the eye, Dr Cornelius contacted and re recommends eye oint for 2 days and follow up with eye MD if no better in 2 days , Resident Pacheco Santiago notified they will place new orders. [facility] [id number] Note* Nurse Navigation Note - Charley Miguel RN - 12/25/2022 4:03 PM EDT Discharge instructions reviewed with the patient and the daughter, patient to follow up with after discharge, no further questions , patient instructed on surgical site care. [facility] [id number] Note* Perioperative Nursing Note - Charley Miguel RN - 12/25/2022 3:52 PM EDT Daughter called to the room [facility] [id number] Note* Perioperative Nursing Note - Charley Miguel RN - 12/25/2022 2:49 PM EDT Family member updated Maury daughter regarding current status and bedrest [facility] [id number] NotePatient: Jaylen Queen Procedure Summary Date: 12/25/22 Room / Location: [facility] OR [facility] Operating Room Anesthesia Start: 1207 Anesthesia Stop: 1414 Procedures: LEFT LEG VENOGRAM (Left) TRANSCATHETER PLACEMENT OF AN INTRAVASCULAR STENT(S), OPEN OR PERCUTANEOUS INITIAL VEIN (Left) Diagnosis: 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) (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) [I82.529]) Surgeons: Jacob Arauz MD Responsible Provider: Hakan Krishna MD Anesthesia Type: general ASA Status: 3 Anesthesia Type: general Vitals Value Taken Time BP 150/64 12/25/22 1430 Temp 36.6 12/25/22 1437 Pulse 65 12/25/22 1435 Resp 14 12/25/22 1435 SpO2 100 % 12/25/22 1435 Vitals shown include unfiled device data. Anesthesia Post Evaluation Patient location during evaluation: PACU Patient participation: complete - patient participated Level of consciousness: awake and alert Pain management: satisfactory to patient Airway patency: patent Dental Injury: no Cardiovascular status: acceptable, blood pressure returned to baseline and hemodynamically stable Respiratory status: acceptable and spontaneous ventilation Hydration status: euvolemic Nausea/Vomiting: controlled No notable events documented. Patient can be discharged once all PACU criteria has been met.[facility]10-31-2023 NotePatient: Jaylen Queen Procedure Summary Date: 12/25/22 Room / Location: [facility] Operating Room Anesthesia Start: 1207 Anesthesia Stop: 1414 Procedures: LEFT LEG VENOGRAM (Left) TRANSCATHETER PLACEMENT OF AN INTRAVASCULAR STENT(S), OPEN OR PERCUTANEOUS INITIAL VEIN (Left) Diagnosis: 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) (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) [I82.529]) Surgeons: Jacob Arauz MD Responsible Provider: Hakan Krishna MD Anesthesia Type: general ASA Status: 3 Anesthesia Type: general Vitals Value Taken Time BP 150/64 12/25/22 1430 Temp 36.6 12/25/22 1436 Pulse 65 12/25/22 1434 Resp 15 12/25/22 1434 SpO2 100 % 12/25/22 1434 Vitals shown include unfiled device data. Anesthesia Post Evaluation Patient location during evaluation: PACU Patient participation: complete - patient participated Level of consciousness: awake and alert Pain management: satisfactory to patient Multimodal analgesia pain management approach Airway patency: patent Two or more strategies used to mitigate risk of obstructive sleep apnea Cardiovascular status: acceptable and hemodynamically stable Respiratory status: acceptable Hydration status: acceptable No notable events documented. MIPS #430 PONV Patient received an inhalational anesthetic (4554F) Patient does not exhibit three or more risk factors for PONV (X0430)) MIPS # 424 Perioperative Temperature Management Anesthesia time was 60 minutes or longer (4255F) Anesthesai administered was General (inhalational or TIVA) or Neuraxial block (X0424) At least one body temperature greater than 95.8F/35.5C achieved within the 30 mins immediately prior to or the 15 minutes immediately following anesthesia end time (G9771) MIPS #477 Multimodal Pain Management Not emergent case Patient was administered multimodal pain management (two or more drugs and/or interventions excluding systemic opioids) in the periopeartive period occurring at some time between 6 hours prior to anesthesia start time until discharged from PACU (G2148) MIPS #404 Anesthesiology Smoking Abstinence The patient is not a current smoker (e.g. cigarette, cigar, pipe, e-cigarette/vaping/marijuana) If no stop here (G9644) I completed my handoff to the receiving clinician during which we: 1. Identified the patient 2. Identified the responsible provider 3. Reviewed the pertinent medical history 4. Discussed the surgical course 5. Reviewed intra-op anesthesia management and issues during anesthesia 6. Set expectations for post-procedure period 7. Allowed opportunity for questions and acknowledgement of understanding.[facility]10-31-2023 Note* Nurse Navigation Note - Charley Miguel RN - 12/25/2022 2:27 PM EDT [id number] Discharge instructions* Discharge Instructions* Pacheco Santiago DO - 12/25/2022 2:13 PM EDT Blood Thinner Medication: You may be prescribed a blood thinning medication before or after your procedure. It is important to start or taking resume your current medication as instructed by your doctor. Cholesterol (Statin): You may be prescribed a cholesterol medication known as a statin. It is important to take this medication as instructed by your doctor. One common side effect of this type of medication is muscle aches. If this occurs, you should stop taking it. Pain Control: You may be prescribed an opiate pain medication after your procedure. These are otherwise known as narcotics and should be taken only as prescribed. DO NOT operate a vehicle, heavy machinery, appliances, or drink alcohol while on this medication. For additional pain/swelling relief, you may ice andelevate the surgical site(s). Note: It is normal to have a certain degree of pain after an operation. Our office is only able to prescribe pain medications within a short period after surgery with few exceptions. Due to certain limitations, prescriptions may need to be picked up in person. If requiring a refill over a weekend, we ask that you please call our office before 1:00pm on Saturday. Constipation: One of the side effects of opiate medications is constipation. We recommend that patients take precautions to prevent this: Drink plenty of water (6-8 glasses of 8 oz. per day). Avoid alcohol or excessive caffeine. Eat plenty of fiber (fruits, vegetables and whole grains). Take an over the counter stool softener (Colace or Miralax) as instructed on the bottle. You can take this each day that you continue to take opiates. Nausea: Some pain medications may cause you to feel nauseous. If this occurs, you can call your doctor who may prescribe anti-nausea medication as needed. Diet: Resume low-fat, low cholesterol diet high in vegetables. Make sure to include protein with each meal while recovering from surgery. If you are on a specific type of diet for your condition, please resume that instead. Activity: DO NOT lift anything over 5 pounds for 2 weeks. You may slowly resume normal activities as tolerated with certain restrictions. Driving: DO NOT operate a motor vehicle unless released by your doctor DO NOT operate a motor vehicle if you are still on pain medicine DO NOT operate a motor vehicle unless you can safely press the gas and brake, even under emergency conditions. Dressing and Wound Care Instructions: You will be discharged with a small bandage at the site of access. You may take it off the next day. You may wash the area or shower after 24 hours. Emergency: Call 911 if you develop sudden chest pain or shortness of breath. If you develop signs of infection, you should call our office as soon as possible. These include: redness, warmth, severe swelling, pus-like drainage, and fever of >100 degrees Fahrenheit. If you have any additional questions about your surgery, please call our office. documented in this [facility]10-31-2023 NoteAirway Date/Time: 12/25/2022 12:12 PM Urgency: scheduled General Information and Staff Patient location during procedure: Procedural Resident/BSW: FELISHA Winn CRNA Performed: BSW Performed by: FELISHA Winn CRNA Authorized by: FELISHA Winn CRNA Indications and Patient Condition Indications for airway management: anesthesia Sedation level: RSI Preoxygenated: yes Patient position: sniffing MILS maintained throughout Mask difficulty assessment: 1 - vent by mask Final Airway Details Final airway type: endotracheal airway Successful airway: ETT Cuffed: yes Successful intubation technique: video laryngoscopy Endotracheal tube insertion site: oral Blade: [place] scope Blade size: #3 ETT size (mm): 8.0 Placement verified by: chest auscultation Measured from: teeth ETT to teeth (cm): 22 Number of attempts at approach: [address] [place], [place] [id number] Attending History and physical note* Jacob Arauz MD - 12/25/2022 12:07 PM EDT H&P reviewed. The patient was examined and there are no changes to the H&P. I had a long discussion again with patient and family at bedside about risks benefits and alternatives to procedure, including no surgical or interventional management. He definitely would like to proceed for relief of symptoms, even if short duration and understands there are risks involved including worsening of the contralateral leg and pulmonary embolism and other limb-and life-threatening complications. He understands there are no promises or guarantees that the procedure will be successful or that he will notice any improvement. He understands there is a risk of rethrombosis, which could even be worse than his current symptoms. He chooses to proceed as planned. Source Note - Carissa Romero APRN - ALTITUDE CHAMBER TECHNICIAN - 12/13/2022 10:00 AM EDT Images from the original note were not included. Comprehensive Pre Surgical History and Physical ? Name: Jaylen Queen : 1960 (Age-62 y.o.) Date of Service: Pt seen/examined on 12/13/2022 Procedure Information Date/Time: 12/25/22 1030 Procedures: LEFT ILIOFEMORAL DEEP VEIN THROMBOSIS, THROMBECTOMY AND STENTING (Left) TRANSCATHETER PLACEMENT OF AN INTRAVASCULAR STENT(S), OPEN OR PERCUTANEOUS INITIAL VEIN (Left) Location: [facility] OR [facility] Operating Room Surgeons: Jacob Arauz MD Chief Complaint: Chronic blood clot in left leg ASSESSMENT/PLAN: Patient is considered intermediate risk for this intermediate level 3 risk procedure/surgery () with no reducible risk factors. Based on the above evaluation, the benefits of the planned procedure likely exceed the risks. The patient is medically optimized to proceed with the planned procedure without any further cardiopulmonary testing. 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] -placed on Xerelto by vascular, will continue - Managed per surgery 2) GERD -no medications --avoidance of triggers encouraged 3) Former smoker 03/2022 - 0.5 pack(s) a day for about 40 years - EKG as below - H&H pending - No 4) HTN -complaint with antihypertensives - no was on medication and nt on medication currently Toxic Drug Monitoring: Drug: na Route: Oral Monitoring: EKG - yes VS - as above Labs: Yes - -encouraged lifestyle modifications -reports monitoring BP at home - no BP Readings from Last 3 Encounters: 12/13/22 114/69 12/10/22 112/80 12/07/22 110/64 Lab Results Component Value Date GLUCOSE 95 10/16/2022 CALCIUM 9.9 10/16/2022 NA 135 10/16/2022 K 3.9 10/16/2022 CO2 24 10/16/2022 CL 104 10/16/2022 BUN 15 10/16/2022 CREATININE 1.03 10/16/2022 5)Hypothyroidism - On levothyroxine Yes - Managed by PCP Yes Lab Results Component Value Date TSH 2.706 12/02/2021 6)HLD -statin therapy - Yes, crestor fenofibrate -lifestyle modifications encouraged Lab Results Component Value Date CHOL 112 12/02/2021 CHOL 148 08/03/2021 CHOL 132 01/11/2021 Lab Results Component Value Date HDL 21 (L) 12/02/2021 HDL 31 (L) 08/03/2021 HDL 32 (L) 01/11/2021 No results found for: LDLCALC Lab Results Component Value Date TRIG 187 (A) 12/02/2021 TRIG 284 (A) 08/03/2021 TRIG 225 (A) 01/11/2021 9) pituitary tumor -endocrinology following -dostinex PO Visit Type: Pre-Admission Testing Visit Labs Ordered: NO - COMPLETE PRIOR TO PAT VISIT Sleep Referral Ordered: NO - NEGATIVE SCREEN PER SLEEP REFERRAL PROTOCOL Total time spent (which include face to face and non face to face encounters) : 30 minutes Toxic drug monitoring/narrow therapeutic index drug monitoring : # Drug name : synthroid # Route administered : po # Method of monitoring : tsh PAT Protocol referenced includes: 1. Anesthesia Lab Protocol Orders 2. Perioperative Cardiovascular Risk Assessment 3. Anesthesia Assessment 4. Pain Assessment and Acute Pain Service Consult (if appropriate) 5. Medical Clearance/Consult from Internal Medicine ([facility]) 6. Shower/Wash Order (for designated surgeries) 7. BEENA Screen and Sleep Clinic Referral (if appropriate) History Of Present Illness: 62 y.o. male who we are asked to see/evaluate by [facility] for pre-operative evaluation prior to . LEFT ILIOFEMORAL DEEP VEIN THROMBOSIS, THROMBECTOMY AND STENTING (Left) [23455 CPT(R)] TRANSCATHETER PLACEMENT OF AN INTRAVASCULAR STENT(S), OPEN OR PERCUTANEOUS INITIAL VEIN (Left) [98003 CPT(R)] Anesthesia type: General The patient is a 62 y.o. male who returns for follow-up of left iliofemoral deep vein thrombosis diagnosed in September 2022. He has been taking Xarelto since that time. The swelling goes up and down with his activity. He came to the emergency room over the weekend due to worsening swelling. Duplex does show deep vein thrombosis up to the left common iliac vein. I could not see any evaluation of the vena cava. There is no thrombus on the right. I found an old CT without contrast which does show significant compression of the left common iliac vein by the overlying right iliac artery. He has been taken to the 0 over the weekend and the swelling has improved but is still significant. He would like to see if there is any further treatment. He is retired but remains quite active.. 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 I did explain to him that venous thrombectomy is not always successful especially after the thrombus has been present for at least 2 months. He should continue taking Xarelto and not stop this prior to the procedure. Dr Arauz office note 12/10/2022 ? Denies history of NH, CAD, CHF, TIA, CVA Past Medical History: Past Medical History: 09/15/2020: Abscess of scrotum Comment: Last Assessment & Plan: Urology office was contacted and I spoke to the nurse practitioner Farzana and she was going to see if they could rearrange some schedules to get him in [place]. She was going to call and talk with Jaylen. 02/27/2022: Acute cystitis without hematuria No date: Anxiety Comment: patrick with surgery No date: Benign neoplasm of pituitary gland and craniopharyngeal duct (pouch) ([facility]) No date: Chest pain, unspecified 05/28/2022: Chills No date: Diverticulitis 2022: DVT (deep venous thrombosis) ([facility]) Comment: left leg No date: Esophageal reflux No date: Essential hypertension, benign 11/27/2021: Flank pain Comment: 11/2021 ECG no significant change from prior 2012 (possible old infarct). NSR Troponin negative. Echocardiogram EF 69, no significant valvular disease. Recommend cardiology as outpatient for further workup- likely stress test. - patient declining. Last Assessment & Plan: A No date: Hay fever No date: Kidney stone 11/2022: Left leg swelling Comment: treated with antibiotics No date: Other abnormal blood chemistry No date: Other and unspecified hyperlipidemia No date: Other anterior pituitary disorders ([facility]) No date: Other testicular hypofunction No date: Pituitary tumor 12/03/2021: Pyelonephritis Comment: Last Assessment & Plan: Resolved. No date: Tobacco use disorder No date: Unspecified hearing loss No date: Unspecified hypothyroidism Past Surgical History: Past Surgical History: No date: CHOLECYSTECTOMY Comment: open No date: COLONOSCOPY No date: KNEE SURGERY; Right No date: SMALL INTESTINE SURGERY Comment: for diverticulitis No date: TONSILLECTOMY (HISTORICAL) Medications Prior to Admission: Prior to Admission medications Medication Sig Start Date End Date Taking? Authorizing Provider cabergoline (Dostinex) 0.5 MG tablet take 1 1/2 tablet by mouth ON SATURDAY AND Saturday10/31/22 Cheryl Basilio MD fenofibrate (Triglide) 160 MG tablet Take 1 tablet (160 mg) by mouth daily. 10/31/22 Cheryl Basilio MD furosemide (Lasix) 40 MG tablet Take 1 tablet (40 mg) by mouth daily for 5 days. 11/15/22 11/20/22 Cheryl Basilio MD levothyroxine (Synthroid, Levoxyl) 100 MCG tablet Take 1 tablet (100 mcg) by mouth daily. 10/31/22 Cheryl Basilio MD niacin (Niaspan) 1000 MG ER tablet Take 1 tablet (1,000 mg) by mouth daily. 10/31/22 Cheryl Basilio MD rivaroxaban (Xarelto) 20 MG tablet Take 1 tablet (20 mg) by mouth with evening meal. Take with food. 10/16/22 11/15/22 Tamara Turcios MD rosuvastatin (Crestor) 10 MG tablet Take 1 tablet (10 mg) by mouth daily. 10/31/22 Cheryl Basilio MD tadalafil (Cialis) 5 MG tablet Take 1 tablet (5 mg) by mouth daily. 10/24/22 Cheryl Basilio MD tamsulosin (Flomax) 0.4 MG 24 hr capsule Take 1 capsule (0.4 mg) by mouth daily. 10/16/22 Tamara Turcios MD CHRONIC NARCOTIC USE: No Allergies: Meperidine If patient has opioid allergy, is it okay to take Acetaminophen: Yes Social History: TOBACCO: reports that he has been smoking cigarettes. He has a 40.00 pack-year smoking history. He has never used smokeless tobacco. ETOH: reports current alcohol use of about 1.0 standard drink of alcohol per week. Social History Substance and Sexual Activity Drug Use Yes Frequency: 5.0 times per week Types: Marijuana Comment: occassionally smokes Family History: Family History Adopted: Yes Problem Relation Name Age of Onset No Known Problems Father Cancer Mother lung REVIEW OF SYSTEMS: Review of Systems Respiratory: Negative. Cardiovascular: Negative. Gastrointestinal: Negative. Genitourinary: Negative. Musculoskeletal: Positive for myalgias. Spasms to left lower leg All other systems reviewed and are negative. Physical Exam: Physical Exam Vitals and nursing note reviewed. Constitutional: Appearance: Normal appearance. HENT: Head: Normocephalic. Nose: Nose normal. Mouth/Throat: Mouth: Mucous membranes are moist. Eyes: Pupils: Pupils are equal, round, and reactive to light. Cardiovascular: Rate and Rhythm: Normal rate and regular rhythm. Heart sounds: Normal heart sounds, S1 normal and S2 normal. Comments: Mild swelling noted to left lower extremity with no complaint of pain Pulmonary: Effort: Pulmonary effort is normal. Breath sounds: Normal breath sounds. No stridor, decreased air movement or transmitted upper airwaysounds. No decreased breath sounds. Comments: Denies dyspnea and chest pain Abdominal: General: Abdomen is flat. Musculoskeletal: General: Normal range of motion. Skin: General: Skin is warm. Capillary Refill: Capillary refill takes less than 2 seconds. Neurological: General: No focal deficit present. Mental Status: He is alert. Vitals: Vitals Value Taken Time BP 114/69 12/13/22 1004 Temp 36.2 C (97.1 F) 12/13/22 1004 Pulse 70 12/13/22 1004 Resp 16 12/13/22 1028 SpO2 98 % 12/13/22 1004 Labs: Lab Results Component Value Date WBC 8.0 10/16/2022 HGB 13.5 10/16/2022 HCT 39.0 (L) 10/16/2022 MCV 89.6 10/16/2022 PLT 277 10/16/2022 Lab Results Component Value Date NA 135 10/16/2022 K 3.9 10/16/2022 CL 104 10/16/2022 CO2 24 10/16/2022 BUN 15 10/16/2022 CREATININE 1.03 10/16/2022 GLUCOSE 95 10/16/2022 CALCIUM 9.9 10/16/2022 PROT 7.1 10/16/2022 ALKPHOS 54 10/16/2022 AST 20 10/16/2022 ALT 11 10/16/2022 EGFR 82.6 10/16/2022 Darrion's Simple Cardiac Risk Index: Interpretation: 0 Points Class I 0.5% 1 Point Class II 1.3% 2 Points Class III 3.6% 3+ Points Class IV 9.1% PAT Pain Score: 0/10 Postop Pain Management Plan (Pain consult ordered?): Pain consult not indicated at this time ? 12/13/2022 EKG: No results found for this or any previous visit (from the past 4464 hour(s)). ECHO and EF:None on file No components found for: LVEF, LVEFMODE METS >4___ Electronically signed by: Carissa Romero APRN - ALTITUDE CHAMBER TECHNICIAN Date: 12/13/2022 at 10:28 AM [facility] [id number] Note* Op Note - Jacob Arauz MD - 12/25/2022 12:07 PM EDT OPERATIVE REPORT SURGEON: JACOB ARAUZ M.D. Procedures: Left leg venogram. Preoperative Diagnosis: Chronic deep venous thrombosis of the left iliofemoral system. Postoperative Diagnosis: Same. Anesthesia: General. Estimated Blood Loss: 10 cc. COMPLICATIONS: None Indications: The patient presents with swelling of the left lower extremity since left iliofemoral DVT in September of this year. He is anticoagulated with heparin. He requests attempted percutaneous venous thrombectomy for improvement of symptoms and sequalae. He was explained that this is an elective procedure and no guarantees or promises were made. Findings: Chronic thrombus of the left popliteal vein, femoral vein, left common femoral vein, and distal left external iliac vein. The thrombus in the left external iliac vein could not be traveresed with a guidewire. Description of Procedure: After informed consent, the patient was brought to the hybrid operating room and placed prone. Bilateral popliteal fossa were prepped and draped in sterile fashion. Using ultrasound guidance, a micropuncture needle was placed percutaneously in the left popliteal vein in a retrograde manner and exchanged over a wire for a 8-Turkmen sheath tjo the level of the right common f emoral vein. The chronic thrombosis of the left external iliac vein could not be crossed with multiple guidewires and catheters. Venograms within the thrombus were performed. The sheath was removed. Manual pressure was held on the popliteal vein for 5 minutes. There was excellent hemostasis. The patient tolerated the procedure well, and was transferred to recovery room in stable condition. JACOB ARAUZ MD [id number] NoteH&P reviewed. The patient was examined and there are no changes to the H&P. I had a long discussion again with patient and family at bedside about risks benefits and alternatives to procedure, including no surgical or interventional management. He definitely would like to proceed for relief of symptoms, even if short duration and understands there are risks involved including worsening of the contralateral leg and pulmonary embolism and other limb-and life-threatening complications. He understands there are no promises or guarantees that the procedure will be successful or that he will notice any improvement. He understands there is a risk of rethrombosis, which could even be worse than his current symptoms. He chooses to proceed as planned.[facility] 12-25-2022 NoteOPERATIVE REPORT SURGEON: JACOB ARAUZ M.D. Procedures: Left leg venogram. Preoperative Diagnosis: Chronic deep venous thrombosis of the left iliofemoral system. Postoperative Diagnosis: Same. Anesthesia: General. Estimated Blood Loss: 10 cc. COMPLICATIONS: None Indications: The patient presents with swelling of the left lower extremity since left iliofemoral DVT in September of this year. He is anticoagulated with heparin. He requests attempted percutaneous venous thrombectomy for improvement of symptoms and sequalae. He was explained that this is an elective procedure and no guarantees or promises were made. Findings: Chronic thrombus of the left popliteal vein, femoral vein, left common femoral vein, and distal left external iliac vein. The thrombus in the left external iliac vein could not be traveresed with a guidewire. Description of Procedure: After informed consent, the patient was brought to the hybrid operating room and placed prone. Bilateral popliteal fossa were prepped and draped in sterile fashion. Using ultrasound guidance, a micropuncture needle was placed percutaneously in the left popliteal vein in a retrograde manner and exchanged over a wire for a 8-Turkmen sheath tjo the level of the right common femoral vein. The chronic thrombosis of the left external iliac vein could not be crossed with multiple guidewires and catheters. Venograms within the thrombus were performed. The sheath was removed. Manual pressure was held on the popliteal vein for 5 minutes. There was excellent hemostasis. The patient tolerated the procedure well, and was transferred to recovery room in stable condition. MAVIS MOAWAD, [facility]10-31-2023 History and physical note* Jacob Arauz MD - 12/25/2022 12:07 PM EDT H&P reviewed. The patient was examined and there are no changes to the H&P. I had a long discussion again with patient and family at bedside about risks benefits and alternatives to procedure, including no surgical or interventional management. He definitely would like to proceed for relief of symptoms, even if short duration and understands there are risks involved including worsening of the contralateral leg and pulmonary embolism and other limb-and life-threatening complications. He understands there are no promises or guarantees that the procedure will be successful or that he will notice any improvement. He understands there is a risk of rethrombosis, which could even be worse than his current symptoms. He chooses to proceed as planned. Source Note - Carissa Romero APRN - ALTITUDE CHAMBER TECHNICIAN - 12/13/2022 10:00 AM EDT Images from the original note were not included. Comprehensive Pre Surgical History and Physical ? Name: Jaylen Queen : 1960 (Age-62 y.o.) Date of Service: Pt seen/examined on 12/13/2022 Procedure Information Date/Time: 12/25/22 1030 Procedures: LEFT ILIOFEMORAL DEEP VEIN THROMBOSIS, THROMBECTOMY AND STENTING (Left) TRANSCATHETER PLACEMENT OF AN INTRAVASCULAR STENT(S), OPEN OR PERCUTANEOUS INITIAL VEIN (Left) [facility]: [facility] [facility] OR [facility] Operating Room Surgeons: Jacob Arauz MD Chief Complaint: Chronic blood clot in left leg ASSESSMENT/PLAN: Patient is considered intermediate risk for this intermediate level 3 risk procedure/surgery () with no reducible risk factors. Based on the above evaluation, the benefits of the planned procedure likely exceed the risks. The patient is medically optimized to proceed with the planned procedure without any further cardiopulmonary testing. 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] -placed on Xerelto by vascular, will continue - Managed per surgery 2) GERD -no medications --avoidance of triggers encouraged 3) Former smoker 03/2022 - 0.5 pack(s) a day for about 40 years - EKG as below - H&H pending - No 4) HTN -complaint with antihypertensives - no was on medication and nt on medication currently Toxic Drug Monitoring: Drug: na Route: Oral Monitoring: EKG - yes VS - as above Labs: Yes - -encouraged lifestyle modifications -reports monitoring BP at home - no BP Readings from Last 3 Encounters: 12/13/22 114/69 12/10/22 112/80 12/07/22 110/64 Lab Results Component Value Date GLUCOSE 95 10/16/2022 CALCIUM 9.9 10/16/2022 NA 135 10/16/2022 K 3.9 10/16/2022 CO2 24 10/16/2022 CL 104 10/16/2022 BUN 15 10/16/2022 CREATININE 1.03 10/16/2022 5)Hypothyroidism - On levothyroxine Yes - Managed by PCP Yes Lab Results Component Value Date TSH 2.706 12/02/2021 6)HLD -statin therapy - Yes, crestor fenofibrate -lifestyle modifications encouraged Lab Results Component Value Date CHOL 112 12/02/2021 CHOL 148 08/03/2021 CHOL 132 01/11/2021 Lab Results Component Value Date HDL 21 (L) 12/02/2021 HDL 31 (L) 08/03/2021 HDL 32 (L) 01/11/2021 No results found for: LDLCALC Lab Results Component Value Date TRIG 187 (A) 12/02/2021 TRIG 284 (A) 08/03/2021 TRIG 225 (A) 01/11/2021 9) pituitary tumor -endocrinology following -dostinex PO Visit Type: Pre-Admission Testing Visit Labs Ordered: NO - COMPLETE PRIOR TO PAT VISIT Sleep Referral Ordered: NO - NEGATIVE SCREEN PER SLEEP REFERRAL PROTOCOL Total time spent (which include face to face and non face to face encounters) : 30 minutes Toxic drug monitoring/narrow therapeutic index drug monitoring : # Drug name : synthroid # Route administered : po # Method of monitoring : tsh PAT Protocol referenced includes: 1. Anesthesia Lab Protocol Orders 2. Perioperative Cardiovascular Risk Assessment 3. Anesthesia Assessment 4. Pain Assessment and Acute Pain Service Consult (if appropriate) 5. Medical Clearance/Consult from Internal Medicine ([facility]) 6. Shower/Wash Order (for designated surgeries) 7. BEENA Screen and Sleep Clinic Referral (if appropriate) History Of Present Illness: 62 y.o. male who we are asked to see/evaluate by [facility] for pre-operative evaluation prior to . LEFT ILIOFEMORAL DEEP VEIN THROMBOSIS, THROMBECTOMY AND STENTING (Left) [47400 CPT(R)] TRANSCATHETER PLACEMENT OF AN INTRAVASCULAR STENT(S), OPEN OR PERCUTANEOUS INITIAL VEIN (Left) [68335 CPT(R)] Anesthesia type: General The patient is a 62 y.o. male who returns for follow-up of left iliofemoral deep vein thrombosis diagnosed in September 2022. He has been taking Xarelto since that time. The swelling goes up and down with his activity. He came to the emergency room over the weekend due to worsening swelling. Duplex does show deep vein thrombosis up to the left common iliac vein. I could not see any evaluation of the vena cava. There is no thrombus on the right. I found an old CT without contrast which does show significant compression of the left common iliac vein by the overlying right iliac artery. He has been taken to the 0 over the weekend and the swelling has improved but is still significant. He would like to see if there is any further treatment. He is retired but remains quite active.. 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 I did explain to him that venous thrombectomy is not always successful especially after the thrombus has been present for at least 2 months. He should continue taking Xarelto and not stop this prior to the procedure. Dr Arauz office note 12/10/2022 ? Denies history of NH, CAD, CHF, TIA, CVA Past Medical History: Past Medical History: 09/15/2020: Abscess of scrotum Comment: Last Assessment & Plan: Urology office was contacted and I spoke to the nurse practitioner Farzana and she was going to see if they could rearrange some schedules to get him in [place]. She was going to call and talk with Jaylen. 02/27/2022: Acute cystitis without hematuria No date: Anxiety Comment: patrick with surgery No date: Benign neoplasm of pituitary gland and craniopharyngeal duct (pouch) ([facility]) No date: Chest pain, unspecified 05/28/2022: Chills No date: Diverticulitis 2022: DVT (deep venous thrombosis) ([facility]) Comment: left leg No date: Esophageal reflux No date: Essential hypertension, benign 11/27/2021: Flank pain Comment: 11/2021 ECG no significant change from prior 2012 (possible old infarct). NSR Troponin negative. Echocardiogram EF 69, no significant valvular disease. Recommend cardiology as outpatient for further workup- likely stress test. - patient declining. Last Assessment & Plan: A No date: Hay fever No date: Kidney stone 11/2022: Left leg swelling Comment: treated with antibiotics No date: Other abnormal blood chemistry No date: Other and unspecified hyperlipidemia No date: Other anterior pituitary disorders ([facility]) No date: Other testicular hypofunction No date: Pituitary tumor 12/03/2021: Pyelonephritis Comment: Last Assessment & Plan: Resolved. No date: Tobacco use disorder No date: Unspecified hearing loss No date: Unspecified hypothyroidism Past Surgical History: Past Surgical History: No date: CHOLECYSTECTOMY Comment: open No date: COLONOSCOPY No date: KNEE SURGERY; Right No date: SMALL INTESTINE SURGERY Comment: for diverticulitis No date: TONSILLECTOMY (HISTORICAL) Medications Prior to Admission: Prior to Admission medications Medication Sig Start Date End Date Taking? Authorizing Provider cabergoline (Dostinex) 0.5 MG tablet take 1 1/2 tablet by mouth ON SATURDAY AND Saturday10/31/22 Cheryl Basilio MD fenofibrate (Triglide) 160 MG tablet Take 1 tablet (160 mg) by mouth daily. 10/31/22 Cheryl Basilio MD furosemide (Lasix) 40 MG tablet Take 1 tablet (40 mg) by mouth daily for 5 days. 11/15/22 11/20/22 Cheryl Basilio MD levothyroxine (Synthroid, Levoxyl) 100 MCG tablet Take 1 tablet (100 mcg) by mouth daily. 10/31/22 Cheryl Basilio MD niacin (Niaspan) 1000 MG ER tablet Take 1 tablet (1,000 mg) by mouth daily. 10/31/22 Cheryl Basilio MD rivaroxaban (Xarelto) 20 MG tablet Take 1 tablet (20 mg) by mouth with evening meal. Take with food. 10/16/22 11/15/22 Tamara uTrcios MD rosuvastatin (Crestor) 10 MG tablet Take 1 tablet (10 mg) by mouth daily. 10/31/22 Cheryl Basilio MD tadalafil (Cialis) 5 MG tablet Take 1 tablet (5 mg) by mouth daily. 10/24/22 Cheryl Basilio MD tamsulosin (Flomax) 0.4 MG 24 hr capsule Take 1 capsule (0.4 mg) by mouth daily. 10/16/22 Tamara Turcios MD CHRONIC NARCOTIC USE: No Allergies: Meperidine If patient has opioid allergy, is it okay to take Acetaminophen: Yes Social History: TOBACCO: reports that he has been smoking cigarettes. He has a 40.00 pack-year smoking history. He has never used smokeless tobacco. ETOH: reports current alcohol use of about 1.0 standard drink of alcohol per week. Social History Substance and Sexual Activity Drug Use Yes Frequency: 5.0 times per week Types: Marijuana Comment: occassionally smokes Family History: Family History Adopted: Yes Problem Relation Name Age of Onset No Known Problems Father Cancer Mother lung REVIEW OF SYSTEMS: Review of Systems Respiratory: Negative. Cardiovascular: Negative. Gastrointestinal: Negative. Genitourinary: Negative. Musculoskeletal: Positive for myalgias. Spasms to left lower leg All other systems reviewed and are negative. Physical Exam: Physical Exam Vitals and nursing note reviewed. Constitutional: Appearance: Normal appearance. HENT: Head: Normocephalic. Nose: Nose normal. Mouth/Throat: Mouth: Mucous membranes are moist. Eyes: Pupils: Pupils are equal, round, and reactive to light. Cardiovascular: Rate and Rhythm: Normal rate and regular rhythm. Heart sounds: Normal heart sounds, S1 normal and S2 normal. Comments: Mild swelling noted to left lower extremity with no complaint of pain Pulmonary: Effort: Pulmonary effort is normal. Breath sounds: Normal breath sounds. No stridor, decreased air movement or transmitted upper airwaysounds. No decreased breath sounds. Comments: Denies dyspnea and chest pain Abdominal: General: Abdomen is flat. Musculoskeletal: General: Normal range of motion. Skin: General: Skin is warm. Capillary Refill: Capillary refill takes less than 2 seconds. Neurological: General: No focal deficit present. Mental Status: He is alert. Vitals: Vitals Value Taken Time BP 114/69 12/13/22 1004 Temp 36.2 C (97.1 F) 12/13/22 1004 Pulse 70 12/13/22 1004 Resp 16 12/13/22 1028 SpO2 98 % 12/13/22 1004 Labs: Lab Results Component Value Date WBC 8.0 10/16/2022 HGB 13.5 10/16/2022 HCT 39.0 (L) 10/16/2022 MCV 89.6 10/16/2022 PLT 277 10/16/2022 Lab Results Component Value Date NA 135 10/16/2022 K 3.9 10/16/2022 CL 104 10/16/2022 CO2 24 10/16/2022 BUN 15 10/16/2022 CREATININE 1.03 10/16/2022 GLUCOSE 95 10/16/2022 CALCIUM 9.9 10/16/2022 PROT 7.1 10/16/2022 ALKPHOS 54 10/16/2022 AST 20 10/16/2022 ALT 11 10/16/2022 EGFR 82.6 10/16/2022 Darrion's Simple Cardiac Risk Index: Interpretation: 0 Points Class I 0.5% 1 Point Class II 1.3% 2 Points Class III 3.6% 3+ Points Class IV 9.1% PAT Pain Score: 0/10 Postop Pain Management Plan (Pain consult ordered?): Pain consult not indicated at this time ? 12/13/2022 EKG: No results found for this or any previous visit (from the past 4464 hour(s)). ECHO and EF:None on file No components found for: LVEF, LVEFMODE METS >4___ Electronically signed by: FELISHA Mack CNP Date: 12/13/2022 at 10:28 AM * Jacob Arauz MD - 12/25/2022 10:30 AM EDT H&P reviewed. The patient was examined and there are no changes to the H&P. Source Note - FELISHA Mack CNP - 12/13/2022 10:00 AM EDT Images from the original note were not included. Comprehensive Pre Surgical History and Physical ? Name: Jaylen Queen : 1960 (Age-62 y.o.) Date of Service: Pt seen/examined on 12/13/2022 Procedure Information Date/Time: 12/25/22 1030 Procedures: LEFT ILIOFEMORAL DEEP VEIN THROMBOSIS, THROMBECTOMY AND STENTING (Left) TRANSCATHETER PLACEMENT OF AN INTRAVASCULAR STENT(S), OPEN OR PERCUTANEOUS INITIAL VEIN (Left) Location: [facility] OR [facility] Operating Room Surgeons: Jacob Arauz MD Chief Complaint: Chronic blood clot in left leg ASSESSMENT/PLAN: Patient is considered intermediate risk for this intermediate level 3 risk procedure/surgery () with no reducible risk factors. Based on the above evaluation, the benefits of the planned procedure likely exceed the risks. The patient is medically optimized to proceed with the planned procedure without any further cardiopulmonary testing. 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] -placed on Xerelto by vascular, will continue - Managed per surgery 2) GERD -no medications --avoidance of triggers encouraged 3) Former smoker 03/2022 - 0.5 pack(s) a day for about 40 years - EKG as below - H&H pending - No 4) HTN -complaint with antihypertensives - no was on medication and nt on medication currently Toxic Drug Monitoring: Drug: na Route: Oral Monitoring: EKG - yes VS - as above Labs: Yes - -encouraged lifestyle modifications -reports monitoring BP at home - no BP Readings from Last 3 Encounters: 12/13/22 114/69 12/10/22 112/80 12/07/22 110/64 Lab Results Component Value Date GLUCOSE 95 10/16/2022 CALCIUM 9.9 10/16/2022 NA 135 10/16/2022 K 3.9 10/16/2022 CO2 24 10/16/2022 CL 104 10/16/2022 BUN 15 10/16/2022 CREATININE 1.03 10/16/2022 5)Hypothyroidism - On levothyroxine Yes - Managed by PCP Yes Lab Results Component Value Date TSH 2.706 12/02/2021 6)HLD -statin therapy - Yes, crestor fenofibrate -lifestyle modifications encouraged Lab Results Component Value Date CHOL 112 12/02/2021 CHOL 148 08/03/2021 CHOL 132 01/11/2021 Lab Results Component Value Date HDL 21 (L) 12/02/2021 HDL 31 (L) 08/03/2021 HDL 32 (L) 01/11/2021 No results found for: LDLCALC Lab Results Component Value Date TRIG 187 (A) 12/02/2021 TRIG 284 (A) 08/03/2021 TRIG 225 (A) 01/11/2021 9) pituitary tumor -endocrinology following -dostinex PO Visit Type: Pre-Admission Testing Visit Labs Ordered: NO - COMPLETE PRIOR TO PAT VISIT Sleep Referral Ordered: NO - NEGATIVE SCREEN PER SLEEP REFERRAL PROTOCOL Total time spent (which include face to face and non face to face encounters) : 30 minutes Toxic drug monitoring/narrow therapeutic index drug monitoring : # Drug name : synthroid # Route administered : po # Method of monitoring : tsh PAT Protocol referenced includes: 1. Anesthesia Lab Protocol Orders 2. Perioperative Cardiovascular Risk Assessment 3. Anesthesia Assessment 4. Pain Assessment and Acute Pain Service Consult (if appropriate) 5. Medical Clearance/Consult from Internal Medicine ([facility]) 6. Shower/Wash Order (for designated surgeries) 7. BEENA Screen and Sleep Clinic Referral (if appropriate) History Of Present Illness: 62 y.o. male who we are asked to see/evaluate by [place] [id number] for pre-operative evaluation prior to . LEFT ILIOFEMORAL DEEP VEIN THROMBOSIS, THROMBECTOMY AND STENTING (Left) [80720 CPT(R)] TRANSCATHETER PLACEMENT OF AN INTRAVASCULAR STENT(S), OPEN OR PERCUTANEOUS INITIAL VEIN (Left) [54468 CPT(R)] Anesthesia type: General The patient is a 62 y.o. male who returns for follow-up of left iliofemoral deep vein thrombosis diagnosed in September 2022. He has been taking Xarelto since that time. The swelling goes up and down with his activity. He came to the emergency room over the weekend due to worsening swelling. Duplex does show deep vein thrombosis up to the left common iliac vein. I could not see any evaluation of the vena cava. There is no thrombus on the right. I found an old CT without contrast which does show significant compression of the left common iliac vein by the overlying right iliac artery. He has been taken to the 0 over the weekend and the swelling has improved but is still significant. He would like to see if there is any further treatment. He is retired but remains quite active.. 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 I did explain to him that venous thrombectomy is not always successful especially after the thrombus has been present for at least 2 months. He should continue taking Xarelto and not stop this prior to the procedure. Dr Arauz office note 12/10/2022 ? Denies history of NH, CAD, CHF, TIA, CVA Past Medical History: Past Medical History: 09/15/2020: Abscess of scrotum Comment: Last Assessment & Plan: Urology office was contacted and I spoke to the nurse practitioner Farzana and she was going to see if they could rearrange some schedules to get him in [place]. She was going to call and talk with Jaylen. 02/27/2022: Acute cystitis without hematuria No date: Anxiety Comment: patrick with surgery No date: Benign neoplasm of pituitary gland and craniopharyngeal duct (pouch) ([facility]) No date: Chest pain, unspecified 05/28/2022: Chills No date: Diverticulitis 2022: DVT (deep venous thrombosis) ([facility]) Comment: left leg No date: Esophageal reflux No date: Essential hypertension, benign 11/27/2021: Flank pain Comment: 11/2021 ECG no significant change from prior 2012 (possible old infarct). NSR Troponin negative. Echocardiogram EF 69, no significant valvular disease. Recommend cardiology as outpatient for further workup- likely stress test. - patient declining. Last Assessment & Plan: A No date: Hay fever No date: Kidney stone 11/2022: Left leg swelling Comment: treated with antibiotics No date: Other abnormal blood chemistry No date: Other and unspecified hyperlipidemia No date: Other anterior pituitary disorders ([facility]) No date: Other testicular hypofunction No date: Pituitary tumor 12/03/2021: Pyelonephritis Comment: Last Assessment & Plan: Resolved. No date: Tobacco use disorder No date: Unspecified hearing loss No date: Unspecified hypothyroidism Past Surgical History: Past Surgical History: No date: CHOLECYSTECTOMY Comment: open No date: COLONOSCOPY No date: KNEE SURGERY; Right No date: SMALL INTESTINE SURGERY Comment: for diverticulitis No date: TONSILLECTOMY (HISTORICAL) Medications Prior to Admission: Prior to Admission medications Medication Sig Start Date End Date Taking? Authorizing Provider cabergoline (Dostinex) 0.5 MG tablet take 1 1/2 tablet by mouth ON SATURDAY AND Saturday10/31/22 Cheryl Basilio MD fenofibrate (Triglide) 160 MG tablet Take 1 tablet (160 mg) by mouth daily. 10/31/22 Cheryl Basilio MD furosemide (Lasix) 40 MG tablet Take 1 tablet (40 mg) by mouth daily for 5 days. 11/15/22 11/20/22 Cheryl Basilio MD levothyroxine (Synthroid, Levoxyl) 100 MCG tablet Take 1 tablet (100 mcg) by mouth daily. 10/31/22 Cheryl Basilio MD niacin (Niaspan) 1000 MG ER tablet Take 1 tablet (1,000 mg) by mouth daily. 10/31/22 Cheryl Basilio MD rivaroxaban (Xarelto) 20 MG tablet Take 1 tablet (20 mg) by mouth with evening meal. Take with food. 10/16/22 11/15/22 Tamara Turcios MD rosuvastatin (Crestor) 10 MG tablet Take 1 tablet (10 mg) by mouth daily. 10/31/22 Cheryl Basilio MD tadalafil (Cialis) 5 MG tablet Take 1 tablet (5 mg) by mouth daily. 10/24/22 Cheryl Basilio MD tamsulosin (Flomax) 0.4 MG 24 hr capsule Take 1 capsule (0.4 mg) by mouth daily. 10/16/22 Tamara Turcios MD CHRONIC NARCOTIC USE: No Allergies: Meperidine If patient has opioid allergy, is it okay to take Acetaminophen: Yes Social History: TOBACCO: reports that he has been smoking cigarettes. He has a 40.00 pack-year smoking history. He has never used smokeless tobacco. ETOH: reports current alcohol use of about 1.0 standard drink of alcohol per week. Social History Substance and Sexual Activity Drug Use Yes Frequency: 5.0 times per week Types: Marijuana Comment: occassionally smokes Family History: Family History Adopted: Yes Problem Relation Name Age of Onset No Known Problems Father Cancer Mother lung REVIEW OF SYSTEMS: Review of Systems Respiratory: Negative. Cardiovascular: Negative. Gastrointestinal: Negative. Genitourinary: Negative. Musculoskeletal: Positive for myalgias. Spasms to left lower leg All other systems reviewed and are negative. Physical Exam: Physical Exam Vitals and nursing note reviewed. Constitutional: Appearance: Normal appearance. HENT: Head: Normocephalic. Nose: Nose normal. Mouth/Throat: Mouth: Mucous membranes are moist. Eyes: Pupils: Pupils are equal, round, and reactive to light. Cardiovascular: Rate and Rhythm: Normal rate and regular rhythm. Heart sounds: Normal heart sounds, S1 normal and S2 normal. Comments: Mild swelling noted to left lower extremity with no complaint of pain Pulmonary: Effort: Pulmonary effort is normal. Breath sounds: Normal breath sounds. No stridor, decreased air movement or transmitted upper airwaysounds. No decreased breath sounds. Comments: Denies dyspnea and chest pain Abdominal: General: Abdomen is flat. Musculoskeletal: General: Normal range of motion. Skin: General: Skin is warm. Capillary Refill: Capillary refill takes less than 2 seconds. Neurological: General: No focal deficit present. Mental Status: He is alert. Vitals: Vitals Value Taken Time BP 114/69 12/13/22 1004 Temp 36.2 C (97.1 F) 12/13/22 1004 Pulse 70 12/13/22 1004 Resp 16 12/13/22 1028 SpO2 98 % 12/13/22 1004 Labs: Lab Results Component Value Date WBC 8.0 10/16/2022 HGB 13.5 10/16/2022 HCT 39.0 (L) 10/16/2022 MCV 89.6 10/16/2022 PLT 277 10/16/2022 Lab Results Component Value Date NA 135 10/16/2022 K 3.9 10/16/2022 CL 104 10/16/2022 CO2 24 10/16/2022 BUN 15 10/16/2022 CREATININE 1.03 10/16/2022 GLUCOSE 95 10/16/2022 CALCIUM 9.9 10/16/2022 PROT 7.1 10/16/2022 ALKPHOS 54 10/16/2022 AST 20 10/16/2022 ALT 11 10/16/2022 EGFR 82.6 10/16/2022 Darrion's Simple Cardiac Risk Index: Interpretation: 0 Points Class I 0.5% 1 Point Class II 1.3% 2 Points Class III 3.6% 3+ Points Class IV 9.1% PAT Pain Score: 0/10 Postop Pain Management Plan (Pain consult ordered?): Pain consult not indicated at this time ? 12/13/2022 EKG: No results found for this or any previous visit (from the past 4464 hour(s)). ECHO and EF:None on file No components found for: LVEF, LVEFMODE METS >4___ Electronically signed by: FELISHA Mack CNP Date: 12/13/2022 at 10:28 AM * Jacob Arauz MD - 12/25/2022 10:30 AM EDT H&P reviewed. The patient was examined and there are no changes to the H&P. Source Note - FELISHA Mack CNP - 12/13/2022 10:00 AM EDT Images from the original note were not included. Comprehensive Pre Surgical History and Physical ? Name: Jaylen Queen : 1960 (Age-62 y.o.) Date of Service: Pt seen/examined on 12/13/2022 Procedure Information Date/Time: 12/25/22 1030 Procedures: LEFT ILIOFEMORAL DEEP VEIN THROMBOSIS, THROMBECTOMY AND STENTING (Left) TRANSCATHETER PLACEMENT OF AN INTRAVASCULAR STENT(S), OPEN OR PERCUTANEOUS INITIAL VEIN (Left) Location: [facility] OR [facility] Operating Room Surgeons: Jacob Arauz MD Chief Complaint: Chronic blood clot in left leg ASSESSMENT/PLAN: Patient is considered intermediate risk for this intermediate level 3 risk procedure/surgery () with no reducible risk factors. Based on the above evaluation, the benefits of the planned procedure likely exceed the risks. The patient is medically optimized to proceed with the planned procedure without any further cardiopulmonary testing. 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] -placed on Xerelto by vascular, will continue - Managed per surgery 2) GERD -no medications --avoidance of triggers encouraged 3) Former smoker 03/2022 - 0.5 pack(s) a day for about 40 years - EKG as below - H&H pending - No 4) HTN -complaint with antihypertensives - no was on medication and nt on medication currently Toxic Drug Monitoring: Drug: na Route: Oral Monitoring: EKG - yes VS - as above Labs: Yes - -encouraged lifestyle modifications -reports monitoring BP at home - no BP Readings from Last 3 Encounters: 12/13/22 114/69 12/10/22 112/80 12/07/22 110/64 Lab Results Component Value Date GLUCOSE 95 10/16/2022 CALCIUM 9.9 10/16/2022 NA 135 10/16/2022 K 3.9 10/16/2022 CO2 24 10/16/2022 CL 104 10/16/2022 BUN 15 10/16/2022 CREATININE 1.03 10/16/2022 5)Hypothyroidism - On levothyroxine Yes - Managed by PCP Yes Lab Results Component Value Date TSH 2.706 12/02/2021 6)HLD -statin therapy - Yes, crestor fenofibrate -lifestyle modifications encouraged Lab Results Component Value Date CHOL 112 12/02/2021 CHOL 148 08/03/2021 CHOL 132 01/11/2021 Lab Results Component Value Date HDL 21 (L) 12/02/2021 HDL 31 (L) 08/03/2021 HDL 32 (L) 01/11/2021 No results found for: LDLCALC Lab Results Component Value Date TRIG 187 (A) 12/02/2021 TRIG 284 (A) 08/03/2021 TRIG 225 (A) 01/11/2021 9) pituitary tumor -endocrinology following -dostinex PO Visit Type: Pre-Admission Testing Visit Labs Ordered: NO - COMPLETE PRIOR TO PAT VISIT Sleep Referral Ordered: NO - NEGATIVE SCREEN PER SLEEP REFERRAL PROTOCOL Total time spent (which include face to face and non face to face encounters) : 30 minutes Toxic drug monitoring/narrow therapeutic index drug monitoring : # Drug name : synthroid # Route administered : po # Method of monitoring : tsh PAT Protocol referenced includes: 1. Anesthesia Lab Protocol Orders 2. Perioperative Cardiovascular Risk Assessment 3. Anesthesia Assessment 4. Pain Assessment and Acute Pain Service Consult (if appropriate) 5. Medical Clearance/Consult from Internal Medicine (IMS) 6. Shower/Wash Order (for designated surgeries) 7. BEENA Screen and Sleep Clinic Referral (if appropriate) History Of Present Illness: 62 y.o. male who we are asked to see/evaluate by [facility] for pre-operative evaluation prior to . LEFT ILIOFEMORAL DEEP VEIN THROMBOSIS, THROMBECTOMY AND STENTING (Left) [57813 CPT(R)] TRANSCATHETER PLACEMENT OF AN INTRAVASCULAR STENT(S), OPEN OR PERCUTANEOUS INITIAL VEIN (Left) [61564 CPT(R)] Anesthesia type: General The patient is a 62 y.o. male who returns for follow-up of left iliofemoral deep vein thrombosis diagnosed in September 2022. He has been taking Xarelto since that time. The swelling goes up and down with his activity. He came to the emergency room over the weekend due to worsening swelling. Duplex does show deep vein thrombosis up to the left common iliac vein. I could not see any evaluation of the vena cava. There is no thrombus on the right. I found an old CT without contrast which does show significant compression of the left common iliac vein by the overlying right iliac artery. He has been taken to the 0 over the weekend and the swelling has improved but is still significant. He would like to see if there is any further treatment. He is retired but remains quite active.. 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 I did explain to him that venous thrombectomy is not always successful especially after the thrombus has been present for at least 2 months. He should continue taking Xarelto and not stop this prior to the procedure. Dr Arauz office note 12/10/2022 ? Denies history of NH, CAD, CHF, TIA, CVA Past Medical History: Past Medical History: 09/15/2020: Abscess of scrotum Comment: Last Assessment & Plan: Urology office was contacted and I spoke to the nurse practitioner Farzana and she was going to see if they could rearrange some schedules to get him in [place]. She was going to call and talk with Jaylen. 02/27/2022: Acute cystitis without hematuria No date: Anxiety Comment: patrick with surgery No date: Benign neoplasm of pituitary gland and craniopharyngeal duct (pouch) ([facility]) No date: Chest pain, unspecified 05/28/2022: Chills No date: Diverticulitis 2022: DVT (deep venous thrombosis) ([facility]) Comment: left leg No date: Esophageal reflux No date: Essential hypertension, benign 11/27/2021: Flank pain Comment: 11/2021 ECG no significant change from prior 2012 (possible old infarct). NSR Troponin negative. Echocardiogram EF 69, no significant valvular disease. Recommend cardiology as outpatient for further workup- likely stress test. - patient declining. Last Assessment & Plan: A No date: Hay fever No date: Kidney stone 11/2022: Left leg swelling Comment: treated with antibiotics No date: Other abnormal blood chemistry No date: Other and unspecified hyperlipidemia No date: Other anterior pituitary disorders ([facility]) No date: Other testicular hypofunction No date: Pituitary tumor 12/03/2021: Pyelonephritis Comment: Last Assessment & Plan: Resolved. No date: Tobacco use disorder No date: Unspecified hearing loss No date: Unspecified hypothyroidism Past Surgical History: Past Surgical History: No date: CHOLECYSTECTOMY Comment: open No date: COLONOSCOPY No date: KNEE SURGERY; Right No date: SMALL INTESTINE SURGERY Comment: for diverticulitis No date: TONSILLECTOMY (HISTORICAL) Medications Prior to Admission: Prior to Admission medications Medication Sig Start Date End Date Taking? Authorizing Provider cabergoline (Dostinex) 0.5 MG tablet take 1 1/2 tablet by mouth ON SATURDAY AND Saturday10/31/22 Cheryl Basilio MD fenofibrate (Triglide) 160 MG tablet Take 1 tablet (160 mg) by mouth daily. 10/31/22 Cheryl Basilio MD furosemide (Lasix) 40 MG tablet Take 1 tablet (40 mg) by mouth daily for 5 days. 11/15/22 11/20/22 Cheryl Basilio MD levothyroxine (Synthroid, Levoxyl) 100 MCG tablet Take 1 tablet (100 mcg) by mouth daily. 10/31/22 Cheryl Basilio MD niacin (Niaspan) 1000 MG ER tablet Take 1 tablet (1,000 mg) by mouth daily. 10/31/22 Cheryl Basilio MD rivaroxaban (Xarelto) 20 MG tablet Take 1 tablet (20 mg) by mouth with evening meal. Take with food. 10/16/22 11/15/22 Tamara Turcios MD rosuvastatin (Crestor) 10 MG tablet Take 1 tablet (10 mg) by mouth daily. 10/31/22 Cheryl Basilio MD tadalafil (Cialis) 5 MG tablet Take 1 tablet (5 mg) by mouth daily. 10/24/22 Cheryl Basilio MD tamsulosin (Flomax) 0.4 MG 24 hr capsule Take 1 capsule (0.4 mg) by mouth daily. 10/16/22 Tamara Turcios MD CHRONIC NARCOTIC USE: No Allergies: Meperidine If patient has opioid allergy, is it okay to take Acetaminophen: Yes Social History: TOBACCO: reports that he has been smoking cigarettes. He has a 40.00 pack-year smoking history. He has never used smokeless tobacco. ETOH: reports current alcohol use of about 1.0 standard drink of alcohol per week. Social History Substance and Sexual Activity Drug Use Yes Frequency: 5.0 times per week Types: Marijuana Comment: occassionally smokes Family History: Family History Adopted: Yes Problem Relation Name Age of Onset No Known Problems Father Cancer Mother lung REVIEW OF SYSTEMS: Review of Systems Respiratory: Negative. Cardiovascular: Negative. Gastrointestinal: Negative. Genitourinary: Negative. Musculoskeletal: Positive for myalgias. Spasms to left lower leg All other systems reviewed and are negative. Physical Exam: Physical Exam Vitals and nursing note reviewed. Constitutional: Appearance: Normal appearance. HENT: Head: Normocephalic. Nose: Nose normal. Mouth/Throat: Mouth: Mucous membranes are moist. Eyes: Pupils: Pupils are equal, round, and reactive to light. Cardiovascular: Rate and Rhythm: Normal rate and regular rhythm. Heart sounds: Normal heart sounds, S1 normal and S2 normal. Comments: Mild swelling noted to left lower extremity with no complaint of pain Pulmonary: Effort: Pulmonary effort is normal. Breath sounds: Normal breath sounds. No stridor, decreased air movement or transmitted upper airwaysounds. No decreased breath sounds. Comments: Denies dyspnea and chest pain Abdominal: General: Abdomen is flat. Musculoskeletal: General: Normal range of motion. Skin: General: Skin is warm. Capillary Refill: Capillary refill takes less than 2 seconds. Neurological: General: No focal deficit present. Mental Status: He is alert. Vitals: Vitals Value Taken Time BP 114/69 12/13/22 1004 Temp 36.2 C (97.1 F) 12/13/22 1004 Pulse 70 12/13/22 1004 Resp 16 12/13/22 1028 SpO2 98 % 12/13/22 1004 Labs: Lab Results Component Value Date WBC 8.0 10/16/2022 HGB 13.5 10/16/2022 HCT 39.0 (L) 10/16/2022 MCV 89.6 10/16/2022 PLT 277 10/16/2022 Lab Results Component Value Date NA 135 10/16/2022 K 3.9 10/16/2022 CL 104 10/16/2022 CO2 24 10/16/2022 BUN 15 10/16/2022 CREATININE 1.03 10/16/2022 GLUCOSE 95 10/16/2022 CALCIUM 9.9 10/16/2022 PROT 7.1 10/16/2022 ALKPHOS 54 10/16/2022 AST 20 10/16/2022 ALT 11 10/16/2022 EGFR 82.6 10/16/2022 Darrion's Simple Cardiac Risk Index: Interpretation: 0 Points Class I 0.5% 1 Point Class II 1.3% 2 Points Class III 3.6% 3+ Points Class IV 9.1% PAT Pain Score: 0/10 Postop Pain Management Plan (Pain consult ordered?): Pain consult not indicated at this time ? 12/13/2022 EKG: No results found for this or any previous visit (from the past 4464 hour(s)). ECHO and EF:None on file No components found for: LVEF, LVEFMODE METS >4___ Electronically signed by: FELISHA Mack CNP Date: 12/13/2022 at 10:28 AM documented in this [facility]10-31-2023 Attending History and physical note* Jacob Arauz MD - 12/25/2022 10:30 AM EDT H&P reviewed. The patient was examined and there are no changes to the H&P. Source Note - FELISHA Mack CNP - 12/13/2022 10:00 AM EDT Images from the original note were not included. Comprehensive Pre Surgical History and Physical ? Name: Jaylen Queen : 1960 (Age-62 y.o.) Date of Service: Pt seen/examined on 12/13/2022 Procedure Information Date/Time: 12/25/22 1030 Procedures: LEFT ILIOFEMORAL DEEP VEIN THROMBOSIS, THROMBECTOMY AND STENTING (Left) TRANSCATHETER PLACEMENT OF AN INTRAVASCULAR STENT(S), OPEN OR PERCUTANEOUS INITIAL VEIN (Left) Location: [facility] OR [facility] Operating Room Surgeons: Jacob Arauz MD Chief Complaint: Chronic blood clot in left leg ASSESSMENT/PLAN: Patient is considered intermediate risk for this intermediate level 3 risk procedure/surgery () with no reducible risk factors. Based on the above evaluation, the benefits of the planned procedure likely exceed the risks. The patient is medically optimized to proceed with the planned procedure without any further cardiopulmonary testing. 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] -placed on Xerelto by vascular, will continue - Managed per surgery 2) GERD -no medications --avoidance of triggers encouraged 3) Former smoker 03/2022 - 0.5 pack(s) a day for about 40 years - EKG as below - H&H pending - No 4) HTN -complaint with antihypertensives - no was on medication and nt on medication currently Toxic Drug Monitoring: Drug: na Route: Oral Monitoring: EKG - yes VS - as above Labs: Yes - -encouraged lifestyle modifications -reports monitoring BP at home - no BP Readings from Last 3 Encounters: 12/13/22 114/69 12/10/22 112/80 12/07/22 110/64 Lab Results Component Value Date GLUCOSE 95 10/16/2022 CALCIUM 9.9 10/16/2022 NA 135 10/16/2022 K 3.9 10/16/2022 CO2 24 10/16/2022 CL 104 10/16/2022 BUN 15 10/16/2022 CREATININE 1.03 10/16/2022 5)Hypothyroidism - On levothyroxine Yes - Managed by PCP Yes Lab Results Component Value Date TSH 2.706 12/02/2021 6)HLD -statin therapy - Yes, crestor fenofibrate -lifestyle modifications encouraged Lab Results Component Value Date CHOL 112 12/02/2021 CHOL 148 08/03/2021 CHOL 132 01/11/2021 Lab Results Component Value Date HDL 21 (L) 12/02/2021 HDL 31 (L) 08/03/2021 HDL 32 (L) 01/11/2021 No results found for: LDLCALC Lab Results Component Value Date TRIG 187 (A) 12/02/2021 TRIG 284 (A) 08/03/2021 TRIG 225 (A) 01/11/2021 9) pituitary tumor -endocrinology following -dostinex PO Visit Type: Pre-Admission Testing Visit Labs Ordered: NO - COMPLETE PRIOR TO PAT VISIT Sleep Referral Ordered: NO - NEGATIVE SCREEN PER SLEEP REFERRAL PROTOCOL Total time spent (which include face to face and non face to face encounters) : 30 minutes Toxic drug monitoring/narrow therapeutic index drug monitoring : # Drug name : synthroid # Route administered : po # Method of monitoring : tsh PAT Protocol referenced includes: 1. Anesthesia Lab Protocol Orders 2. Perioperative Cardiovascular Risk Assessment 3. Anesthesia Assessment 4. Pain Assessment and Acute Pain Service Consult (if appropriate) 5. Medical Clearance/Consult from Internal Medicine (IMS) 6. Shower/Wash Order (for designated surgeries) 7. BEENA Screen and Sleep Clinic Referral (if appropriate) History Of Present Illness: 62 y.o. male who we are asked to see/evaluate by [place] [id number] for pre-operative evaluation prior to . LEFT ILIOFEMORAL DEEP VEIN THROMBOSIS, THROMBECTOMY AND STENTING (Left) [41256 CPT(R)] TRANSCATHETER PLACEMENT OF AN INTRAVASCULAR STENT(S), OPEN OR PERCUTANEOUS INITIAL VEIN (Left) [66109 CPT(R)] Anesthesia type: General The patient is a 62 y.o. male who returns for follow-up of left iliofemoral deep vein thrombosis diagnosed in September 2022. He has been taking Xarelto since that time. The swelling goes up and down with his activity. He came to the emergency room over the weekend due to worsening swelling. Duplex does show deep vein thrombosis up to the left common iliac vein. I could not see any evaluation of the vena cava. There is no thrombus on the right. I found an old CT without contrast which does show significant compression of the left common iliac vein by the overlying right iliac artery. He has been taken to the 0 over the weekend and the swelling has improved but is still significant. He would like to see if there is any further treatment. He is retired but remains quite active.. 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 I did explain to him that venous thrombectomy is not always successful especially after the thrombus has been present for at least 2 months. He should continue taking Xarelto and not stop this prior to the procedure. Dr Arauz office note 12/10/2022 ? Denies history of NH, CAD, CHF, TIA, CVA Past Medical History: Past Medical History: 09/15/2020: Abscess of scrotum Comment: Last Assessment & Plan: Urology office was contacted and I spoke to the nurse practitioner Farzana and she was going to see if they could rearrange some schedules to get him in [place]. She was going to call and talk with Jaylen. 02/27/2022: Acute cystitis without hematuria No date: Anxiety Comment: patrick with surgery No date: Benign neoplasm of pituitary gland and craniopharyngeal duct (pouch) ([facility]) No date: Chest pain, unspecified 05/28/2022: Chills No date: Diverticulitis 2022: DVT (deep venous thrombosis) ([facility]) Comment: left leg No date: Esophageal reflux No date: Essential hypertension, benign 11/27/2021: Flank pain Comment: 11/2021 ECG no significant change from prior 2012 (possible old infarct). NSR Troponin negative. Echocardiogram EF 69, no significant valvular disease. Recommend cardiology as outpatient for further workup- likely stress test. - patient declining. Last Assessment & Plan: A No date: Hay fever No date: Kidney stone 11/2022: Left leg swelling Comment: treated with antibiotics No date: Other abnormal blood chemistry No date: Other and unspecified hyperlipidemia No date: Other anterior pituitary disorders ([facility]) No date: Other testicular hypofunction No date: Pituitary tumor 12/03/2021: Pyelonephritis Comment: Last Assessment & Plan: Resolved. No date: Tobacco use disorder No date: Unspecified hearing loss No date: Unspecified hypothyroidism Past Surgical History: Past Surgical History: No date: CHOLECYSTECTOMY Comment: open No date: COLONOSCOPY No date: KNEE SURGERY; Right No date: SMALL INTESTINE SURGERY Comment: for diverticulitis No date: TONSILLECTOMY (HISTORICAL) Medications Prior to Admission: Prior to Admission medications Medication Sig Start Date End Date Taking? Authorizing Provider cabergoline (Dostinex) 0.5 MG tablet take 1 1/2 tablet by mouth ON SATURDAY AND Saturday10/31/22 Cheryl Basilio MD fenofibrate (Triglide) 160 MG tablet Take 1 tablet (160 mg) by mouth daily. 10/31/22 Cheryl Basilio MD furosemide (Lasix) 40 MG tablet Take 1 tablet (40 mg) by mouth daily for 5 days. 11/15/22 11/20/22 Cheryl Basilio MD levothyroxine (Synthroid, Levoxyl) 100 MCG tablet Take 1 tablet (100 mcg) by mouth daily. 10/31/22 Cheryl Basilio MD niacin (Niaspan) 1000 MG ER tablet Take 1 tablet (1,000 mg) by mouth daily. 10/31/22 Cheryl Basilio MD rivaroxaban (Xarelto) 20 MG tablet Take 1 tablet (20 mg) by mouth with evening meal. Take with food. 10/16/22 11/15/22 Tamara Turcios MD rosuvastatin (Crestor) 10 MG tablet Take 1 tablet (10 mg) by mouth daily. 10/31/22 Cheryl Basilio MD tadalafil (Cialis) 5 MG tablet Take 1 tablet (5 mg) by mouth daily. 10/24/22 Cheryl Basilio MD tamsulosin (Flomax) 0.4 MG 24 hr capsule Take 1 capsule (0.4 mg) by mouth daily. 10/16/22 Tamara Turcios MD CHRONIC NARCOTIC USE: No Allergies: Meperidine If patient has opioid allergy, is it okay to take Acetaminophen: Yes Social History: TOBACCO: reports that he has been smoking cigarettes. He has a 40.00 pack-year smoking history. He has never used smokeless tobacco. ETOH: reports current alcohol use of about 1.0 standard drink of alcohol per week. Social History Substance and Sexual Activity Drug Use Yes Frequency: 5.0 times per week Types: Marijuana Comment: occassionally smokes Family History: Family History Adopted: Yes Problem Relation Name Age of Onset No Known Problems Father Cancer Mother lung REVIEW OF SYSTEMS: Review of Systems Respiratory: Negative. Cardiovascular: Negative. Gastrointestinal: Negative. Genitourinary: Negative. Musculoskeletal: Positive for myalgias. Spasms to left lower leg All other systems reviewed and are negative. Physical Exam: Physical Exam Vitals and nursing note reviewed. Constitutional: Appearance: Normal appearance. HENT: Head: Normocephalic. Nose: Nose normal. Mouth/Throat: Mouth: Mucous membranes are moist. Eyes: Pupils: Pupils are equal, round, and reactive to light. Cardiovascular: Rate and Rhythm: Normal rate and regular rhythm. Heart sounds: Normal heart sounds, S1 normal and S2 normal. Comments: Mild swelling noted to left lower extremity with no complaint of pain Pulmonary: Effort: Pulmonary effort is normal. Breath sounds: Normal breath sounds. No stridor, decreased air movement or transmitted upper airwaysounds. No decreased breath sounds. Comments: Denies dyspnea and chest pain Abdominal: General: Abdomen is flat. Musculoskeletal: General: Normal range of motion. Skin: General: Skin is warm. Capillary Refill: Capillary refill takes less than 2 seconds. Neurological: General: No focal deficit present. Mental Status: He is alert. Vitals: Vitals Value Taken Time BP 114/69 12/13/22 1004 Temp 36.2 C (97.1 F) 12/13/22 1004 Pulse 70 12/13/22 1004 Resp 16 12/13/22 1028 SpO2 98 % 12/13/22 1004 Labs: Lab Results Component Value Date WBC 8.0 10/16/2022 HGB 13.5 10/16/2022 HCT 39.0 (L) 10/16/2022 MCV 89.6 10/16/2022 PLT 277 10/16/2022 Lab Results Component Value Date NA 135 10/16/2022 K 3.9 10/16/2022 CL 104 10/16/2022 CO2 24 10/16/2022 BUN 15 10/16/2022 CREATININE 1.03 10/16/2022 GLUCOSE 95 10/16/2022 CALCIUM 9.9 10/16/2022 PROT 7.1 10/16/2022 ALKPHOS 54 10/16/2022 AST 20 10/16/2022 ALT 11 10/16/2022 EGFR 82.6 10/16/2022 Darrion's Simple Cardiac Risk Index: Interpretation: 0 Points Class I 0.5% 1 Point Class II 1.3% 2 Points Class III 3.6% 3+ Points Class IV 9.1% PAT Pain Score: 0/10 Postop Pain Management Plan (Pain consult ordered?): Pain consult not indicated at this time ? 12/13/2022 EKG: No results found for this or any previous visit (from the past 4464 hour(s)). ECHO and EF:None on file No components found for: LVEF, LVEFMODE METS >4___ Electronically signed by: FELISHA Mack CNP Date: 12/13/2022 at 10:28 AM [id number] NoteH&P reviewed. The patient was examined and there are no changes to the H&P.[facility]10-31-2023 NoteH&P reviewed. The patient was examined and there are no changes to the H&P.[facility] 12-22-2022 Hospital Discharge instructions* Discharge Instructions* Pacheco Negron MD - 12/22/2022 10:12 AM EDT Tylenol for pain. Call your PCP Sunday 12/24 for results from yesterday's urine culture. * Attachments The following attachments cannot be sent through Care Everywhere. * Flank Pain ED ([facility] [place]) documented in this [facility]10-28-2023 Emergency department Note* Estefany Dunlap RN - 12/22/2022 8:[address] Negron the pt was prescribed Cipro yesterday by Dr. Basilio. Pt had not previously mentioned this to ED providers. Dr. Negron at bedside again speaking with pt. Estefany Dunlap RN 12/22/22 0857 [id number] Emergency department Note* Estefany Dunlap RN - 12/22/2022 8:[address] Negron the pt was prescribed Cipro yesterday by Dr. Basilio. Pt had not previously mentioned this to ED providers. Dr. Negron at bedside again speaking with pt. Estefany Dunlap RN 12/22/22 0857 * Estefany Dunlap RN - 12/22/2022 8:38 AM EDT ED medic to room to start IV/obtain labs per orders after physician spoke with pt at length about plan of care. Pt questioning medic why we are doing bloodwork and wants to speak with Dr. Negron again. Dr. Negron back to room. Estefany Dunlap RN 12/22/22 0841 * Estefany Dunlap RN - 12/22/2022 8:05 AM EDT Pt ambulatory to ED3 with daughter with c/o dysuria, flank pain since Saturday or . Pt hashx of numerous visits for flank pain, states he has had flank pain intermittently for at least a year. States that he retains urine which causes UTI's. He has had 2 doctor appts already this week forsame c/o. He states he saw Dr. Perales (per EPIC he went to the office and had a negative UA 12/18 bu t no record of an actual visit with Dr. Perales) and pt seems upset it was not sent for culture. PerEPIC the pt placed calls to the office/[facility] stating he needed IV abx specifically but was advised this is not indicated for negative UA. He then saw Dr. Basilio in [place] yesterday and had another UA as well as outpatient US and Xray. UA yesterday was again negative but was sent for culture. Outpatient imaging was all negative as well. Pt was prescribed Cipro in spite of negative results. Pt states his c/o are falling on deaf ears. He reports having chills and sweats this morning. Hestates he called the [facility] today and was told by the nurse to come to the ED to get a CT scan. Pt is concerned that he is having DVT surgery Saturday and that if he has an infection it will cause issueswith his procedure. Pt is A&Ox3, respirations even and unlabored, skin warm and dry, no s/s of distress noted. Pt negative/irritable during triage. * Pacheco Negron MD - 12/22/2022 7:57 AM EDT EMERGENCY DEPARTMENT ENCOUNTER Pt Name: Jaylen Queen Birthdate 1960 Date of evaluation: 12/22/2022 ED Provider: Pacheco Negron MD CHIEF COMPLAINT Chief Complaint Patient presents with Difficulty Urinating Flank Pain History from patient and daughter HISTORY OF PRESENT ILLNESS (Location/Symptom, Timing/Onset, Context/Setting, Quality, Duration, Modifying Factors, Severity) Note limiting factors. I wore appropriate PPE for the entirety of this encounter. HPI Jaylen Queen is a 62 y.o. who presents to the emergency department complaining of right flank pain. Began 5 days ago. Dull mild aching pain. Saw his PCP and had negative urinalysis in the office. Saw PCP yesterday and had ultrasound KUB urinalysis and culture. Urinalysis negative culture pending KUB and ultrasound unremarkable per the medical center. Patient is concerned that he has a history of similar symptoms that evolved into a urinary tract infection which failed outpatient treatment because he had resistant E. coli and required hospitalization twice in the past year. No fever or injury. Because hissymptoms persisted despite 2 recent visits he called the nurse on-call who told him to come to the emergency department and have a CT scan today so he did. No fever. He did have chills this morning. Nursing Notes were reviewed. Limitations to history: None Outside historians: Family daughter REVIEW OF SYSTEMS Review of Systems Constitutional: Negative for fever. Eyes: Negative for visual disturbance. Respiratory: Negative for shortness of breath. Cardiovascular: Negative for chest pain. Gastrointestinal: Negative for abdominal pain and nausea. Genitourinary: Positive for dysuria and flank pain. Negative for decreased urine volume, difficultyurinating, enuresis, frequency, genital sores, hematuria, penile discharge, penile pain, penile swelling, scrotal swelling, testicular pain and urgency. Musculoskeletal: Negative for back pain and neck pain. Skin: Negative for rash. Neurological: Negative for headaches. Psychiatric/Behavioral: Negative for self-injury. Pertinent positives and negatives as per HPI PAST MEDICAL HISTORY Past Medical History: Diagnosis Date Abscess of scrotum 09/15/2020 Last Assessment & Plan: Urology office was contacted and I spoke to the nurse practitioner Farzana and she was going to see if they could rearrange some schedules to get him in [place]. She was going to call and talk with Jaylen. Acute cystitis without hematuria 02/27/2022 Anxiety patrick with surgery Benign neoplasm of pituitary gland and craniopharyngeal duct (pouch) ([facility]) Chest pain, unspecified Chills 05/28/2022 Chronic flank pain Chronic pain Diverticulitis DVT (deep venous thrombosis) ([facility]) 2022 left leg Esophageal reflux Essential hypertension, benign Flank pain 11/27/2021 11/2021 ECG no significant change from prior 2012 (possible old infarct). NSR Troponin negative. Echocardiogram EF 69, no significant valvular disease. Recommend cardiology as outpatient for further workup- likely stress test. - patient d eclining. Last Assessment & Plan: A Hay fever Kidney stone Left leg swelling 11/2022 treated with antibiotics Other abnormal blood chemistry Other and unspecified hyperlipidemia Other anterior pituitary disorders ([facility]) Other testicular hypofunction Pituitary tumor Pyelonephritis 12/03/2021 Last Assessment & Plan: Resolved. Tobacco use disorder Unspecified hearing loss Unspecified hypothyroidism UTI (urinary tract infection) SURGICAL HISTORY Past Surgical History: Procedure Laterality Date CHOLECYSTECTOMY open COLONOSCOPY KNEE SURGERY Right SMALL INTESTINE SURGERY for diverticulitis TONSILLECTOMY (HISTORICAL) CURRENT MEDICATIONS Previous Medications CABERGOLINE (DOSTINEX) 0.5 MG TABLET take 1 1/2 tablet by mouth ON SATURDAY AND SATURDAY CIPROFLOXACIN (CIPRO) 500 MG TABLET Take 1 tablet (500 mg) by mouth 2 times daily for 7 days. FENOFIBRATE (TRIGLIDE) 160 MG TABLET Take 1 tablet (160 mg) by mouth daily. FUROSEMIDE (LASIX) 40 MG TABLET Take 1 tablet (40 mg) by mouth daily for 5 days. LEVOTHYROXINE (SYNTHROID, LEVOXYL) 100 MCG TABLET Take 1 tablet (100 mcg) by mouth daily. NIACIN (NIASPAN) 1000 MG ER TABLET Take 1 tablet (1,000 mg) by mouth daily. RIVAROXABAN (XARELTO) 20 MG TABLET Take 1 tablet (20 mg) by mouth with evening meal. Take with food. ROSUVASTATIN (CRESTOR) 10 MG TABLET Take 1 tablet (10 mg) by mouth daily. TADALAFIL (CIALIS) 5 MG TABLET Take 1 tablet (5 mg) by mouth daily. TAMSULOSIN (FLOMAX) 0.4 MG 24 HR CAPSULE Take 1 capsule (0.4 mg) by mouth daily. ALLERGIES Meperidine FAMILY HISTORY Family History Adopted: Yes Problem Relation Name Age of Onset No Known Problems Father Cancer Mother lung SOCIAL HISTORY Social History Socioeconomic History Marital status: Tobacco Use Smoking status: Some Days Packs/day: 1.00 Years: 40.00 Additional pack years: 0.00 Total pack years: 40.00 Types: Cigarettes Last attempt to quit: 03/2022 Years since quittin.7 Smokeless tobacco: Never Vaping Use Vaping Use: Never used Substance and Sexual Activity Alcohol use: Yes Alcohol/week: 1.0 standard drink of alcohol Types: 1 Cans of beer per week Comment: occassionally Drug use: Yes Frequency: 5.0 times per week Types: Marijuana Comment: occassionally smokes Social Determinants of Health Financial Resource Strain: Low Risk (02/06/2022) Overall Financial Resource Strain (CARDIA) Difficulty of Paying Living Expenses: Not hard at all Food Insecurity: No Food Insecurity (02/06/2022) Hunger Vital Sign Worried About Running Out of Food in the Last Year: Never true Ran Out of Food in the Last Year: Never true Transportation Needs: No Transportation Needs (10/12/2022) PRAPARE - Transportation Lack of Transportation (Medical): No Lack of Transportation (Non-Medical): No Intimate Partner Violence: Not At Risk (10/12/2022) Humiliation, Afraid, Rape, and Kick questionnaire Fear of Current or Ex-Partner: No Emotionally Abused: No Physically Abused: No Sexually Abused: No Housing Stability: Unknown (10/12/2022) Housing Stability Vital Sign Unable to Pay for Housing in the Last Year: No Unstable Housing in the Last Year: No SCREENINGS PHYSICAL EXAM ED Triage Vitals [12/22/22 0804] Temp Heart Rate Resp BP 36.2 C (97.2 F) 63 16 (!) 153/99 SpO2 Temp Source Heart Rate Source Patient Position 98 % Temporal -- -- BP Location FiO2 (%) -- -- Physical Exam Constitutional: Appearance: Normal appearance. HENT: Head: Normocephalic and atraumatic. Eyes: Extraocular Movements: Extraocular movements intact. Pupils: Pupils are equal, round, and reactive to light. Cardiovascular: Rate and Rhythm: Normal rate. Pulmonary: Effort: Pulmonary effort is normal. Breath sounds: No wheezing or rhonchi. Abdominal: Palpations: Abdomen is soft. Musculoskeletal: General: Normal range of motion. Cervical back: Normal range of motion. Skin: General: Skin is warm and dry. Capillary Refill: Capillary refill takes less than 2 seconds. Neurological: General: No focal deficit present. Mental Status: He is alert. Not febrile not toxic Abdomen -soft nontender no mass no organomegaly no peritoneal signs no CVA tenderness no skin changes DIAGNOSTIC RESULTS LABS: Labs Reviewed BASIC METABOLIC PANEL - Abnormal Result Value SODIUM 142 POTASSIUM 4.1 CHLORIDE 109 (*) CARBON DIOXIDE 22 UREA NITROGEN 18 CREATININE 1.18 GLUCOSE 104 (*) CALCIUM 10.5 (*) ANION GAP 10 eGFR 70.2 CBC WITH AUTO DIFFERENTIAL - Abnormal Auto WBC 5.4 RBC 4.52 Hemoglobin 14.1 Hematocrit 41.6 MCV 92.0 MCH 31.2 MCHC 33.9 RDW 14.0 Platelets 243 MPV 9.1 Neutrophils Relative 56.0 Lymphocytes Relative 30.9 Monocytes Relative 8.8 Eosinophils Relative 3.4 Basophils Relative 0.7 Immature Grans % 0.2 (*) Neutrophils Absolute 3.0 Lymphocytes Absolute 1.7 Monocytes Absolute 0.5 Eosinophils Absolute 0.2 Basophils Absolute 0.0 Immature Grans Absolute 0.0 COMPLETE URINALYSIS - Normal Color, Urine Light Yellow Clarity, Urine Clear pH, Urine 5.5 Leukocytes, Urine Negative Nitrite, Urine Negative Protein, Urine Negative Glucose, Urine Normal Bilirubin, Urine Negative Ketones, Urine Negative Urobilinogen, Urine Normal Blood, Urine Negative SPECIFIC GRAVITY OF URINE (NUMERIC) 1.016 LACTIC ACID WITH REFLEX - Normal LACTIC ACID 1.2 COMPLETE URINALYSIS WITH REFLEX TO CULTURE Narrative: The following orders were created for panel order Urinalysis complete with reflex to Culture. Procedure Abnormality Status --------- ------ Complete Urinalysis[[id number]] Normal Final result Please view results for these tests on the individual orders. All other labs were within normal range or not returned as of this dictation. EMERGENCY DEPARTMENT COURSE and DIFFERENTIAL DIAGNOSIS/MDM: Vitals: Vitals: 12/22/22 0804 12/22/22 1017 BP: (!) 153/99 (!) 148/85 Pulse: 63 50 Resp: 16 16 Temp: 36.2 C (97.2 F) TempSrc: Temporal SpO2: 98% 98% Weight: 109 kg (241 lb) Medications cefTRIAXone (Rocephin) 1,000 mg in sodium chloride 0.9 % 50 mL IVPB Mini-Bag Plus (1,000 mg IntraVENous New Bag 12/22/22 1019) ketorolac (Toradol) injection 15 mg (15 mg IntraVENous Given 12/22/22 1015) Medical Decision Making and ED Course The patient presented with a chief complaint of right flank pain. The differential diagnosis associated with this patient's presentation includes pyelonephritis kidney stone abdominal aortic aneurysm. Our workup consisted of ordering/reviewing laboratory work-up and urinalysis which showed normal kidney function no evidence of infection. Long discussion with patient who is insistent that he received IV antibiotics, but this is identical to his previous infection and that he wants treatment. Patient is upset with his PCP and previous hospitalizations because of what he considers were missed diagnoses that led to the of his . He also wants to make sure that he is healthy enough to have his surgery 2 days from now to remove his left leg blood clot. After shared decision making we will provide him with an IV dose of medication today, he will start his oral antibiotics and we will reassess when culture results from yesterday are available. Review of yesterday's PCP visit shows patient was placed on empiric Cipro. When asked, patient states he has not filled the prescription. Review of yesterday urine culture results showed is still pending. Diagnostic tests and medications considered but not ordered: Patient requested abdominal CT scan but previous CT scan showed no tumor kidney stone AAA or other abnormality, the most recent October 02, 2022 making no indication for imaging today. Patient agrees after being informed of previous results. Review of prior external records: Ultrasound yesterday showed renal cyst but no evidence of bladderdistention. CT scan 10/02/2022 and 09/14/2022 showed no evidence of stone. Creatinine baseline is approximately 1.2 based on records from the past year but was 1.53 on 12/13/2022 and 1.03 on 10/16/2022. Chronic conditions impacting care: Has left thigh blood clot scheduled for surgery in 3 days, wantshis flank pain resolved prior to that. Has a history of oral antibiotic resistant kidney infectionsin the past year making him at high risk for recurrence Social determinants of health affecting care: Distrust of [facility] and his PCP ED Medications managed: Pain improved with ketorolac Consideration of hospitalization or de-escalation of care: Discussed the possibility of hospitalization for IV antibiotics but patient has no evidence of local or systemic infection despite his previous history. He agreed to 1 dose of IV antibiotics here with outpatient follow-up. REVAL: 9:53 AM All data now available and reviewed with patient. CONSULTS: None FINAL IMPRESSION 1. Acute right flank pain DISPOSITION Discharge 12/22/2022 10:47:11 AM PATIENT REFERRED TO: Cheryl Basilio MD [address] [place] [address] [address] [place] [address] In 2 days DISCHARGE MEDICATIONS: New Prescriptions No medications on file (Comment: Please note this report has been produced using speech recognition software and may contain errors related to that system including errors in grammar, punctuation, and spelling, as well as words and phrases that may be inappropriate. If there are any questions or concerns please feel freeto contact the dictating provider for clarification.) Pacheco Negron MD (electronically signed) Emergency Medicine Provider Pacheco Negron MD 12/22/22 1251 documented in this [facility]10-28-2023 Emergency department Note* Estefany Dunlap RN - 12/22/2022 8:38 AM EDT ED medic to room to start IV/obtain labs per orders after physician spoke with pt at length about plan of care. Pt questioning medic why we are doing bloodwork and wants to speak with Dr. Negron again. Dr. Negron back to room. Estefany Dunlap RN 12/22/22 0841 [id number] NoteED medic to room to start IV/obtain labs per orders after physician spoke with pt at length about plan of care. Pt questioning medic why we are doing bloodwork and wants to speak with Dr. Negron again. Dr. Negron back to room. Estefany Dunlap RN 12/22/22 0841[facility]10-28-2023 Emergency department Triage note * Estefany Dunlap RN - 12/22/2022 8:05 AM EDT Pt ambulatory to ED3 with daughter with c/o dysuria, flank pain since Saturday or . Pt hashx of numerous visits for flank pain, states he has had flank pain intermittently for at least a year. States that he retains urine which causes UTI's. He has had 2 doctor appts already this week forsame c/o. He states he saw Dr. Perales (per [facility] he went to the office and had a negative UA 12/18 but no record of an actual visit with Dr. Perales) and pt seems upset it was not sent for culture. PerEPIC the pt placed calls to the office/[facility] stating he needed IV abx specifically but was advised this is not indicated for negative UA. He then saw Dr. Basilio in [place] yesterday and had another UA as well as outpatient US and Xray. UA yesterday was again negative but was sent for culture. Outpatient imaging was all negative as well. Pt was prescribed Cipro in spite of negative results. Pt states his c/o are falling on deaf ears. He reports having chills and sweats this morning. [place] he called the [facility] today and was told by the nurse to come to the ED to get a CT scan. Pt is concerned that he is having DVT surgery Saturday and that if he has an infection it will cause issueswith his procedure. Pt is A&Ox3, respirations even and unlabored, skin warm and dry, no s/s of distress noted. Pt negative/irritable during triage. [id number] Physician Emergency department Note* Pacheco Negron MD - 12/22/2022 7:57 AM EDT EMERGENCY DEPARTMENT ENCOUNTER Pt Name: Jaylen Queen Birthdate 1960 Date of evaluation: 12/22/2022 ED Provider: Pacheco Negron MD CHIEF COMPLAINT Chief Complaint Patient presents with Difficulty Urinating Flank Pain History from patient and daughter HISTORY OF PRESENT ILLNESS (Location/Symptom, Timing/Onset, Context/Setting, Quality, Duration, Modifying Factors, Severity) Note limiting factors. I wore appropriate PPE for the entirety of this encounter. HPI Jaylen Queen is a 62 y.o. who presents to the emergency department complaining of right flank pain. Began 5 days ago. Dull mild aching pain. Saw his PCP and had negative urinalysis in the office. Saw PCP yesterday and had ultrasound KUB urinalysis and culture. Urinalysis negative culture pending KUB and ultrasound unremarkable per epic. Patient is concerned that he has a history of similar symptoms that evolved into a urinary tract infection which failed outpatient treatment because he had resistant E. coli and required hospitalization twice in the past year. No fever or injury. Because hissymptoms persisted despite 2 recent visits he called the nurse on-call who told him to come to the emergency department and have a CT scan today so he did. No fever. He did have chills this morning. Nursing Notes were reviewed. Limitations to history: None Outside historians: Family daughter REVIEW OF SYSTEMS Review of Systems Constitutional: Negative for fever. Eyes: Negative for visual disturbance. Respiratory: Negative for shortness of breath. Cardiovascular: Negative for chest pain. Gastrointestinal: Negative for abdominal pain and nausea. Genitourinary: Positive for dysuria and flank pain. Negative for decreased urine volume, difficultyurinating, enuresis, frequency, genital sores, hematuria, penile discharge, penile pain, penile swelling, scrotal swelling, testicular pain and urgency. Musculoskeletal: Negative for back pain and neck pain. Skin: Negative for rash. Neurological: Negative for headaches. Psychiatric/Behavioral: Negative for self-injury. Pertinent positives and negatives as per HPI PAST MEDICAL HISTORY Past Medical History: Diagnosis Date Abscess of scrotum 09/15/2020 Last Assessment & Plan: Urology office was contacted and I spoke to the nurse practitioner Farzana and she was going to see if they could rearrange some schedules to get him in [place]. She was going to call and talk with Jaylen. Acute cystitis without hematuria 02/27/2022 Anxiety patrick with surgery Benign neoplasm of pituitary gland and craniopharyngeal duct (pouch) ([facility]) Chest pain, unspecified Chills 05/28/2022 Chronic flank pain Chronic pain Diverticulitis DVT (deep venous thrombosis) ([facility]) 2022 left leg Esophageal reflux Essential hypertension, benign Flank pain 11/27/2021 11/2021 ECG no significant change from prior 2012 (possible old infarct). NSR Troponin negative. Echocardiogram EF 69, no significant valvular disease. Recommend cardiology as outpatient for further workup- likely stress test. - patient d eclining. Last Assessment & Plan: A Hay fever Kidney stone Left leg swelling 11/2022 treated with antibiotics Other abnormal blood chemistry Other and unspecified hyperlipidemia Other anterior pituitary disorders ([facility]) Other testicular hypofunction Pituitary tumor Pyelonephritis 12/03/2021 Last Assessment & Plan: Resolved. Tobacco use disorder Unspecified hearing loss Unspecified hypothyroidism UTI (urinary tract infection) SURGICAL HISTORY Past Surgical History: Procedure Laterality Date CHOLECYSTECTOMY open COLONOSCOPY KNEE SURGERY Right SMALL INTESTINE SURGERY for diverticulitis TONSILLECTOMY (HISTORICAL) CURRENT MEDICATIONS Previous Medications CABERGOLINE (DOSTINEX) 0.5 MG TABLET take 1 1/2 tablet by mouth ON SATURDAY AND SATURDAY CIPROFLOXACIN (CIPRO) 500 MG TABLET Take 1 tablet (500 mg) by mouth 2 times daily for 7 days. FENOFIBRATE (TRIGLIDE) 160 MG TABLET Take 1 tablet (160 mg) by mouth daily. FUROSEMIDE (LASIX) 40 MG TABLET Take 1 tablet (40 mg) by mouth daily for 5 days. LEVOTHYROXINE (SYNTHROID, LEVOXYL) 100 MCG TABLET Take 1 tablet (100 mcg) by mouth daily. NIACIN (NIASPAN) 1000 MG ER TABLET Take 1 tablet (1,000 mg) by mouth daily. RIVAROXABAN (XARELTO) 20 MG TABLET Take 1 tablet (20 mg) by mouth with evening meal. Take with food. ROSUVASTATIN (CRESTOR) 10 MG TABLET Take 1 tablet (10 mg) by mouth daily. TADALAFIL (CIALIS) 5 MG TABLET Take 1 tablet (5 mg) by mouth daily. TAMSULOSIN (FLOMAX) 0.4 MG 24 HR CAPSULE Take 1 capsule (0.4 mg) by mouth daily. ALLERGIES Meperidine FAMILY HISTORY Family History Adopted: Yes Problem Relation Name Age of Onset No Known Problems Father Cancer Mother lung SOCIAL HISTORY Social History Socioeconomic History Marital status: Tobacco Use Smoking status: Some Days Packs/day: 1.00 Years: 40.00 Additional pack years: 0.00 Total pack years: 40.00 Types: Cigarettes Last attempt to quit: 03/2022 Years since quittin.7 Smokeless tobacco: Never Vaping Use Vaping Use: Never used Substance and Sexual Activity Alcohol use: Yes Alcohol/week: 1.0 standard drink of alcohol Types: 1 Cans of beer per week Comment: occassionally Drug use: Yes Frequency: 5.0 times per week Types: Marijuana Comment: occassionally smokes Social Determinants of Health Financial Resource Strain: Low Risk (02/06/2022) Overall Financial Resource Strain (CARDIA) Difficulty of Paying Living Expenses: Not hard at all Food Insecurity: No Food Insecurity (02/06/2022) Hunger Vital Sign Worried About Running Out of Food in the Last Year: Never true Ran Out of Food in the Last Year: Never true Transportation Needs: No Transportation Needs (10/12/2022) PRAPARE - Transportation Lack of Transportation (Medical): No Lack of Transportation (Non-Medical): No Intimate Partner Violence: Not At Risk (10/12/2022) Humiliation, Afraid, Rape, and Kick questionnaire Fear of Current or Ex-Partner: No Emotionally Abused: No Physically Abused: No Sexually Abused: No Housing Stability: Unknown (10/12/2022) Housing Stability Vital Sign Unable to Pay for Housing in the Last Year: No Unstable Housing in the Last Year: No SCREENINGS PHYSICAL EXAM ED Triage Vitals [12/22/22 0804] Temp Heart Rate Resp BP 36.2 C (97.2 F) 63 16 (!) 153/99 SpO2 Temp Source Heart Rate Source Patient Position 98 % Temporal -- -- BP Location FiO2 (%) -- -- Physical Exam Constitutional: Appearance: Normal appearance. HENT: Head: Normocephalic and atraumatic. Eyes: Extraocular Movements: Extraocular movements intact. Pupils: Pupils are equal, round, and reactive to light. Cardiovascular: Rate and Rhythm: Normal rate. Pulmonary: Effort: Pulmonary effort is normal. Breath sounds: No wheezing or rhonchi. Abdominal: Palpations: Abdomen is soft. Musculoskeletal: General: Normal range of motion. Cervical back: Normal range of motion. Skin: General: Skin is warm and dry. Capillary Refill: Capillary refill takes less than 2 seconds. Neurological: General: No focal deficit present. Mental Status: He is alert. Not febrile not toxic Abdomen -soft nontender no mass no organomegaly no peritoneal signs no CVA tenderness no skin changes DIAGNOSTIC RESULTS LABS: Labs Reviewed BASIC METABOLIC PANEL - Abnormal Result Value SODIUM 142 POTASSIUM 4.1 CHLORIDE 109 (*) CARBON DIOXIDE 22 UREA NITROGEN 18 CREATININE 1.18 GLUCOSE 104 (*) CALCIUM 10.5 (*) ANION GAP 10 eGFR 70.2 CBC WITH AUTO DIFFERENTIAL - Abnormal Auto WBC 5.4 RBC 4.52 Hemoglobin 14.1 Hematocrit 41.6 MCV 92.0 MCH 31.2 MCHC 33.9 RDW 14.0 Platelets 243 MPV 9.1 Neutrophils Relative 56.0 Lymphocytes Relative 30.9 Monocytes Relative 8.8 Eosinophils Relative 3.4 Basophils Relative 0.7 Immature Grans % 0.2 (*) Neutrophils Absolute 3.0 Lymphocytes Absolute 1.7 Monocytes Absolute 0.5 Eosinophils Absolute 0.2 Basophils Absolute 0.0 Immature Grans Absolute 0.0 COMPLETE URINALYSIS - Normal Color, Urine Light Yellow Clarity, Urine Clear pH, Urine 5.5 Leukocytes, Urine Negative Nitrite, Urine Negative Protein, Urine Negative Glucose, Urine Normal Bilirubin, Urine Negative Ketones, Urine Negative Urobilinogen, Urine Normal Blood, Urine Negative SPECIFIC GRAVITY OF URINE (NUMERIC) 1.016 LACTIC ACID WITH REFLEX - Normal LACTIC ACID 1.2 COMPLETE URINALYSIS WITH REFLEX TO CULTURE Narrative: The following orders were created for panel order Urinalysis complete with reflex to Culture. Procedure Abnormality Status --------- ------ Complete Urinalysis[[id number]] Normal Final result Please view results for these tests on the individual orders. All other labs were within normal range or not returned as of this dictation. EMERGENCY DEPARTMENT COURSE and DIFFERENTIAL DIAGNOSIS/MDM: Vitals: Vitals: 12/22/22 0804 12/22/22 1017 BP: (!) 153/99 (!) 148/85 Pulse: 63 50 Resp: 16 16 Temp: 36.2 C (97.2 F) TempSrc: Temporal SpO2: 98% 98% Weight: 109 kg (241 lb) Medications cefTRIAXone (Rocephin) 1,000 mg in sodium chloride 0.9 % 50 mL IVPB Mini-Bag Plus (1,000 mg IntraVENous New Bag 12/22/22 1019) ketorolac (Toradol) injection 15 mg (15 mg IntraVENous Given 12/22/22 1015) Medical Decision Making and ED Course The patient presented with a chief complaint of right flank pain. The differential diagnosis associated with this patient's presentation includes pyelonephritis kidney stone abdominal aortic aneurysm. Our workup consisted of ordering/reviewing laboratory work-up and urinalysis which showed normal kidney function no evidence of infection. Long discussion with patient who is insistent that he received IV antibiotics, but this is identical to his previous infection and that he wants treatment. Patient is upset with his PCP and previous hospitalizations because of what he considers were missed diagnoses that led to the of his . He also wants to make sure that he is healthy enough to have his surgery 2 days from now to remove his left leg blood clot. After shared decision making we will provide him with an IV dose of medication today, he will start his oral antibiotics and we will reassess when culture results from yesterday are available. Review of yesterday's PCP visit shows patient was placed on empiric Cipro. When asked, patient states he has not filled the prescription. Review of yesterday urine culture results showed is still pending. Diagnostic tests and medications considered but not ordered: Patient requested abdominal CT scan but previous CT scan showed no tumor kidney stone AAA or other abnormality, the most recent October 02, 2022 making no indication for imaging today. Patient agrees after being informed of previous results. Review of prior external records: Ultrasound yesterday showed renal cyst but no evidence of bladderdistention. CT scan 10/02/2022 and 09/14/2022 showed no evidence of stone. Creatinine baseline is approximately 1.2 based on records from the past year but was 1.53 on 12/13/2022 and 1.03 on 10/16/2022. Chronic conditions impacting care: Has left thigh blood clot scheduled for surgery in 3 days, wantshis flank pain resolved prior to that. Has a history of oral antibiotic resistant kidney infectionsin the past year making him at high risk for recurrence Social determinants of health affecting care: Distrust of [facility] and his PCP ED Medications managed: Pain improved with ketorolac Consideration of hospitalization or de-escalation of care: Discussed the possibility of hospitalization for IV antibiotics but patient has no evidence of local or systemic infection despite his previous history. He agreed to 1 dose of IV antibiotics here with outpatient follow-up. REVAL: 9:53 AM All data now available and reviewed with patient. CONSULTS: None FINAL IMPRESSION 1. Acute right flank pain DISPOSITION Discharge 12/22/2022 10:47:11 AM PATIENT REFERRED TO: Cheryl Basilio MD [address] [place] [address] [address] [place] [address] In 2 days DISCHARGE MEDICATIONS: New Prescriptions No medications on file (Comment: Please note this report has been produced using speech recognition software and may contain errors related to that system including errors in grammar, punctuation, and spelling, as well as words and phrases that may be inappropriate. If there are any questions or concerns please feel freeto contact the dictating provider for clarification.) Pacheco Negron MD (electronically signed) Emergency Medicine Provider Pacheco Negron MD 12/22/22 1251 [facility] [id number] Telephone encounter Note* Telephone Encounter - Farzana Samaniego RN - 12/22/2022 7:08 AM EDT S: Patient spoke with [facility] nurse regarding flank pain B: Onset of symptoms/concern 5-6 days A: Pt has stage 2 chronic kidney disease. Having a lot of kidney pain. Right side just below rib cage. Has been having the problem off and on for the past year. Been hospitalized 3 times before. Currently rates the pain 7/10 and constant. The pain is starting to travel around to the front. States bladder does not empty completely. Had kidney stone once years ago. Was seen at beginning of the weekin . Urine was negative at that time. Was seen yesterday by Dr Basilio. Urine sent but willnot have results until Saturday. Feels like hit by ball bat. Experiencing tinge with urination, constant right flank pain, cloudy urine, and night sweats. Denies fever, chest pain, sob, blood in urine, or n/v. States usually needs IV antibiotic because the infection is usually e.coli and oral does not clear the infection up. Supposed to have surgery on Saturday for blood clot removal in left leg and does not want to have to cancel it. Asking what he can do over the weekend since the symptoms are getting worse. R: Pt advised to be seen in the ER Keep pushing fluids - water and cranberry juice. Patient verbalizes understanding. States will go to [facility] ED because has not had luck at [place]. Instructed to call back with any further questions or concerns. Reason for Disposition [1] Abdominal pain AND [2] age > 60 years Protocols used: Flank [id number] [facility] [id number] Miscellaneous Notes* Telephone Encounter - Farzana Samaniego RN - 12/22/2022 7:08 AM EDT S: Patient spoke with [facility] nurse regarding flank pain B: Onset of symptoms/concern 5-6 days A: Pt has stage 2 chronic kidney disease. Having a lot of kidney pain. Right side just below rib cage. Has been having the problem off and on for the past year. Been hospitalized 3 times before. Currently rates the pain 7/10 and constant. The pain is starting to travel around to the front. States bladder does not empty completely. Had kidney stone once years ago. Was seen at beginning of the weekin . Urine was negative at that time. Was seen yesterday by Dr Basilio. Urine sent but willnot have results until Saturday. Feels like hit by ball bat. Experiencing tinge with urination, constant right flank pain, cloudy urine, and night sweats. Denies fever, chest pain, sob, blood in urine, or n/v. States usually needs IV antibiotic because the infection is usually e.coli and oral does not clear the infection up. Supposed to have surgery on Saturday for blood clot removal in left leg and does not want to have to cancel it. Asking what he can do over the weekend since the symptoms are getting worse. R: Pt advised to be seen in the ER Keep pushing fluids - water and cranberry juice. Patient verbalizes understanding. States will go to [facility] ED because has not had luck at [place]. Instructed to call back with any further questions or concerns. Reason for Disposition [1] Abdominal pain AND [2] age > 60 years Protocols used: Flank [id number]-KC documented in this encounterSProtestant Deaconess [id number] Telephone encounter Note* Telephone Encounter - Ventura Simpson MA - 12/18/2022 8:40 AM EDT Mychart message sent [facility] [id number] Miscellaneous Notes* Telephone Encounter - Ventura Simpson MA - 12/18/2022 8:40 AM EDT Mychart message sent * Telephone Encounter - Cheryl Basilio MD - 12/18/2022 7:33 AM EDT Please schedule visit to discuss. Thanks * Telephone Encounter - Dat Talbot RN - 12/17/2022 3:07 PM EDT S: Patient spoke with [facility] nurse regarding right kidney pain B: Onset of symptoms/concern 4 days A: Patient states that he was in the office today, and did a via dipstick that was negative. Left flank pain is moderate to severe. Patient states feels like someone punched in the kidney. Patient denies nausea, vomiting, and blood in urine. Patient states that this is how he gets when he has a kideny infection and he has surgery next week on his leg R: Patient is requesting that he have IV antibiotics for the ecoli in his kidney because that is what he had last time. Explained to patient that is not typically done without a positive culture result. Please reach outto patient to advise Patient understands care advice. No further needs at this time. Patient instructed to call back with new or worsening symptoms. * Telephone Encounter - Mary Garcia MA - 12/17/2022 9:13 AM EDT Notified Jaylen. * Telephone Encounter - Lake Perales MD - 12/17/2022 9:11 AM EDT Urine is completely clear, there is no blood or white blood cells in his urine I am not sure why heis having his pain. This does not look like any type of urinary tract infection. To see urology if he continues to have problems, I have nothing else to offer him at this time. * Telephone Encounter - Mary Garcia MA - 12/17/2022 8:02 AM EDT Pt reported that he was scheduled with urology last week but missed the appointment d/t needing to be seen for the blood clot. Advised him we need to get him in with urology tevin after his surgery. UA results on your desk and order pended. * Telephone Encounter - Sierra Tyler - 12/17/2022 7:56 AM EDT Patient stopped in and said he is having kidney issues, he said he has been on multiple antibioticsand nothing is working. He said he would need to be on an IV antibiotic, he was advised that we would not be able to do that here. He is having surgery next week for a blot clot and said he would need the issue he is having fixed before then. documented in this encounterSProtestant Deaconess [id number] Telephone encounter Note* Telephone Encounter - Cheryl Basilio MD - 12/18/2022 7:33 AM EDT Please schedule visit to discuss. Thanks [facility] [id number] Telephone encounter Note* Telephone Encounter - Dat Talbot RN - 12/17/2022 3:07 PM EDT S: Patient spoke with [facility] nurse regarding right kidney pain B: Onset of symptoms/concern 4 days A: Patient states that he was in the office today, and did a via dipstick that was negative. Left flank pain is moderate to severe. Patient states feels like someone punched in the kidney. Patient denies nausea, vomiting, and blood in urine. Patient states that this is how he gets when he has a kideny infection and he has surgery next week on his leg R: Patient is requesting that he have IV antibiotics for the ecoli in his kidney because that is what he had last time. Explained to patient that is not typically done without a positive culture result. Please reach outto patient to advise Patient understands care advice. No further needs at this time. Patient instructed to call back with new or worsening symptoms. [facility] [id number] Miscellaneous Notes* Telephone Encounter - Dat Talbot RN - 12/17/2022 3:07 PM EDT S: Patient spoke with [facility] nurse regarding right kidney pain B: Onset of symptoms/concern 4 days A: Patient states that he was in the office today, and did a via dipstick that was negative. Left flank pain is moderate to severe. Patient states feels like someone punched in the kidney. Patient denies nausea, vomiting, and blood in urine. Patient states that this is how he gets when he has a kideny infection and he has surgery next week on his leg R: Patient is requesting that he have IV antibiotics for the ecoli in his kidney because that is what he had last time. Explained to patient that is not typically done without a positive culture result. Please reach outto patient to advise Patient understands care advice. No further needs at this time. Patient instructed to call back with new or worsening symptoms. * Telephone Encounter - Mary Garcia MA - 12/17/2022 9:13 AM EDT Notified Jaylen. * Telephone Encounter - Lake Perales MD - 12/17/2022 9:11 AM EDT Urine is completely clear, there is no blood or white blood cells in his urine I am not sure why heis having his pain. This does not look like any type of urinary tract infection. To see urology if he continues to have problems, I have nothing else to offer him at this time. * Telephone Encounter - Mary Garcia MA - 12/17/2022 8:02 AM EDT Pt reported that he was scheduled with urology last week but missed the appointment d/t needing to be seen for the blood clot. Advised him we need to get him in with urology tevin after his surgery. UA results on your desk and order pended. * Telephone Encounter - Sierra Tyler - 12/17/2022 7:56 AM EDT Patient stopped in and said he is having kidney issues, he said he has been on multiple antibioticsand nothing is working. He said he would need to be on an IV antibiotic, he was advised that we would not be able to do that here. He is having surgery next week for a blot clot and said he would need the issue he is having fixed before then. documented in this [facility]10-23-2023 Telephone encounter Note* Telephone Encounter - Dat Talbot RN - 12/17/2022 2:57 PM EDT . Reason for Disposition MODERATE pain (e.g., interferes with normal activities or awakens from sleep) Protocols used: Flank [id number] [facility] [id number] Miscellaneous Notes* Telephone Encounter - Dat Talbot RN - 12/17/2022 2:57 PM EDT . Reason for Disposition MODERATE pain (e.g., interferes with normal activities or awakens from sleep) Protocols used: Flank [id number] documented in this [facility]10-23-2023 Telephone encounter Note* Telephone Encounter - Mary Garcia MA - 12/17/2022 9:13 AM EDT Notified Jaylen. [facility] [id number] Telephone encounter Note* Telephone Encounter - Lake Perales MD - 12/17/2022 9:11 AM EDT Urine is completely clear, there is no blood or white blood cells in his urine I am not sure why heis having his pain. This does not look like any type of urinary tract infection. To see urology if he continues to have problems, I have nothing else to offer him at this time. [facility] [id number] Telephone encounter Note* Telephone Encounter - Mary Garcia MA - 12/17/2022 8:02 AM EDT Pt reported that he was scheduled with urology last week but missed the appointment d/t needing to be seen for the blood clot. Advised him we need to get him in with urology tevin after his surgery. UA results on your desk and order pended. [facility] [id number] Telephone encounter Note* Telephone Encounter - Sierra Tyler - 12/17/2022 7:56 AM EDT Patient stopped in and said he is having kidney issues, he said he has been on multiple antibioticsand nothing is working. He said he would need to be on an IV antibiotic, he was advised that we would not be able to do that here. He is having surgery next week for a blot clot and said he would need the issue he is having fixed before then. [facility]10-19-2023 NotePatient: Jaylen Queen Procedure Information Date/Time: 12/25/22 1030 Procedures: LEFT ILIOFEMORAL DEEP VEIN THROMBOSIS, THROMBECTOMY AND STENTING (Left) TRANSCATHETER PLACEMENT OF AN INTRAVASCULAR STENT(S), OPEN OR PERCUTANEOUS INITIAL VEIN (Left) Location: [facility] OR [facility] Operating Room Surgeons: Jacob Arauz MD Past Medical History: Past Medical History: 09/15/2020: Abscess of scrotum Comment: Last Assessment & Plan: Urology office was contacted and I spoke to the nurse practitioner Farzana and she was going to see if they could rearrange some schedules to get him in [place]. She was going to call and talk with Jaylen. 02/27/2022: Acute cystitis without hematuria No date: Anxiety Comment: patrick with surgery No date: Benign neoplasm of pituitary gland and craniopharyngeal duct (pouch) (HCC) No date: Chest pain, unspecified 05/28/2022: Chills No date: Diverticulitis 2022: DVT (deep venous thrombosis) ([facility]) Comment: left leg No date: Esophageal reflux No date: Essential hypertension, benign 11/27/2021: Flank pain Comment: 11/2021 ECG no significant change from prior 2012 (possible old infarct). NSR Troponin negative. Echocardiogram EF 69, no significant valvular disease. Recommend cardiology as outpatient for further workup- likely stress test. - patient declining. Last Assessment & Plan: A No date: Hay fever No date: Kidney stone 11/2022: Left leg swelling Comment: treated with antibiotics No date: Other abnormal blood chemistry No date: Other and unspecified hyperlipidemia No date: Other anterior pituitary disorders ([facility]) No date: Other testicular hypofunction No date: Pituitary tumor 12/03/2021: Pyelonephritis Comment: Last Assessment & Plan: Resolved. No date: Tobacco use disorder No date: Unspecified hearing loss No date: Unspecified hypothyroidism Past Surgical History: Past Surgical History: No date: CHOLECYSTECTOMY Comment: open No date: COLONOSCOPY No date: KNEE SURGERY; Right No date: SMALL INTESTINE SURGERY Comment: for diverticulitis No date: TONSILLECTOMY (HISTORICAL) Social History: TOBACCO: reports that he has been smoking cigarettes. He has a 40.00 pack-year smoking history. He has never used smokeless tobacco. ETOH: reports current alcohol use of about 1.0 standard drink of alcohol per week. Social History Substance and Sexual Activity Drug Use Yes ? Frequency: 5.0 times per week ? Types: Marijuana Comment: occassionally smokes Family History: Family History Adopted: Yes Problem Relation Name Age of Onset ? No Known Problems Father ? Cancer Mother lung Screening: unknown Clinical information reviewed: Tobacco Allergies Meds Med Hx Surg Hx Fam Hx Soc Hx Physical Exam Airway Mallampati: III TM distance: >3 FB Neck ROM: full Mouth Open: normalendotracheal tube not in place Cardiovascular Dental dentition normal Pulmonary Abdominal Anesthesia Plan patient is NPO appropriate Any family history or previous problems with anesthesia no ASA 3 general Any family history or previous problems with anesthesia no The patient is a current smoker. Patient was previously instructed to abstain from smoking on day of procedure. Patient did not smoke on day of procedure. Anesthetic plan and risks discussed with patient (daughter). BEENA Screening STOP-Bang Total Score: 2 Labs: Lab Results Component Value Date WBC 5.5 12/13/2022 HGB 14.5 12/13/2022 HCT 43.8 12/13/2022 MCV 92.8 12/13/2022 PLT 235 12/13/2022 Lab Results Component Value Date NA 139 12/13/2022 K 5.1 12/13/2022 CL 105 12/13/2022 CO2 25 12/13/2022 BUN 20 12/13/2022 CREATININE 1.53 (H) 12/13/2022 GLUCOSE 103 (H) 12/13/2022 CALCIUM 11.2 (H) 12/13/2022 PROT 7.1 10/16/2022 ALKPHOS 54 10/16/2022 AST 20 10/16/2022 ALT 11 10/16/2022 EGFR 51.4 (L) 12/13/2022 EKG 12/13/2022 Prelim IMPRESSION: Sinus bradycardia Inferior infarct, old No echocardiogram results found for the past 14 days 12/01/21 SUMMARY: ? 1. Left ventricle: Systolic function is normal. The estimated ejection fraction is 69%. 2. Right ventricle: The cavity size is normal. Systolic function is normal. Right ventricular systolic pressure is within the normal range. 3. No significant valve disease. ? CVHX ECG SCAN (Final) Narrative Ordered by an unspecified provider.[facility]10-19-2023 Note Comprehensive Pre Surgical History and Physical ? Name: Jaylen Queen : 1960 (Age-62 y.o.) Date of Service: Pt seen/examined on 12/13/2022 Procedure Information Date/Time: 12/25/22 1030 Procedures: LEFT ILIOFEMORAL DEEP VEIN THROMBOSIS, THROMBECTOMY AND STENTING (Left) TRANSCATHETER PLACEMENT OF AN INTRAVASCULAR STENT(S), OPEN OR PERCUTANEOUS INITIAL VEIN (Left) Location: [facility] OR [facility] Operating Room Surgeons: Jacob Arauz MD Chief Complaint: Chronic blood clot in left leg ASSESSMENT/PLAN: Patient is considered intermediate risk for this intermediate level 3 risk procedure/surgery () with no reducible risk factors. Based on the above evaluation, the benefits of the planned procedure likely exceed the risks. The patient is medically optimized to proceed with the planned procedure without any further cardiopulmonary testing. 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] -placed on Xerelto by vascular, will continue - Managed per surgery 2) GERD -no medications --avoidance of triggers encouraged 3) Former smoker 03/2022 - 0.5 pack(s) a day for about 40 years - EKG as below - H&H pending - No 4) HTN -complaint with antihypertensives - no was on medication and nt on medication currently Toxic Drug Monitoring: Drug: na Route: Oral Monitoring: EKG - yes VS - as above Labs: Yes - -encouraged lifestyle modifications -reports monitoring BP at home - no BP Readings from Last 3 Encounters: 12/13/22 114/69 12/10/22 112/80 12/07/22 110/64 Lab Results Component Value Date GLUCOSE 95 10/16/2022 CALCIUM 9.9 10/16/2022 NA 135 10/16/2022 K 3.9 10/16/2022 CO2 24 10/16/2022 CL 104 10/16/2022 BUN 15 10/16/2022 CREATININE 1.03 10/16/2022 5)Hypothyroidism - On levothyroxine Yes - Managed by PCP Yes Lab Results Component Value Date TSH 2.706 12/02/2021 6)HLD -statin therapy - Yes, crestor fenofibrate -lifestyle modifications encouraged Lab Results Component Value Date CHOL 112 12/02/2021 CHOL 148 08/03/2021 CHOL 132 01/11/2021 Lab Results Component Value Date HDL 21 (L) 12/02/2021 HDL 31 (L) 08/03/2021 HDL 32 (L) 01/11/2021 No results found for: LDLCALC Lab Results Component Value Date TRIG 187 (A) 12/02/2021 TRIG 284 (A) 08/03/2021 TRIG 225 (A) 01/11/2021 9) pituitary tumor -endocrinology following -dostinex PO Visit Type: Pre-Admission Testing Visit Labs Ordered: NO - COMPLETE PRIOR TO PAT VISIT Sleep Referral Ordered: NO - NEGATIVE SCREEN PER SLEEP REFERRAL PROTOCOL Total time spent (which include face to face and non face to face encounters) : 30 minutes Toxic drug monitoring/narrow therapeutic index drug monitoring : # Drug name : synthroid # Route administered : po # Method of monitoring : tsh PAT Protocol referenced includes: 1. Anesthesia Lab Protocol Orders 2. Perioperative Cardiovascular Risk Assessment 3. Anesthesia Assessment 4. Pain Assessment and Acute Pain Service Consult (if appropriate) 5. Medical Clearance/Consult from Internal Medicine (IMS) 6. Shower/Wash Order (for designated surgeries) 7. BEENA Screen and Sleep Clinic Referral (if appropriate) History Of Present Illness: 62 y.o. male who we are asked to see/evaluate by [facility] 02 for pre-operative evaluation prior to . LEFT ILIOFEMORAL DEEP VEIN THROMBOSIS, THROMBECTOMY AND STENTING (Left) [96977 CPT(R)] TRANSCATHETER PLACEMENT OF AN INTRAVASCULAR STENT(S), OPEN OR PERCUTANEOUS INITIAL VEIN (Left) [49918 CPT(R)] Anesthesia type: General The patient is a 62 y.o. male who returns for follow-up of left iliofemoral deep vein thrombosis diagnosed in September 2022. He has been taking Xarelto since that time. The swelling goes up and down with his activity. He came to the emergency room over the weekend due to worsening swelling. Duplex does show deep vein thrombosis up to the left common iliac vein. I could not see any evaluation of the vena cava. There is no thrombus on the right. I found an old CT without contrast which does show significant compression of the left common iliac vein by the overlying right iliac artery. He has been taken to the 0 over the weekend and the swelling has improved but is still significant. He would like to see if there is any further treatment. He is retired but remains quite active.. Circulatory Acute deep vein thrombosis (DVT) of left lower extremity, unspecified vein (HCC) - Primary Relevant Orders Vascular US IVC iliac vein duplex complete Chronic deep vein thrombosis (DVT) of iliofemoral vein (HCC) This is now a left iliofemoral chronic DVT will evaluate vena cava with duplex prior to bringing him for attempted left lois (more content not included)...[facility]10-19-2023 Note Comprehensive Pre Surgical History and Physical ? Name: Jaylen Queen : 1960 (Age-62 y.o.) Date of Service: Pt seen/examined on 12/13/2022 Procedure Information Date/Time: 12/25/22 1030 Procedures: LEFT ILIOFEMORAL DEEP VEIN THROMBOSIS, THROMBECTOMY AND STENTING (Left) TRANSCATHETER PLACEMENT OF AN INTRAVASCULAR STENT(S), OPEN OR PERCUTANEOUS INITIAL VEIN (Left) Location: [facility] OR [facility] Operating Room Surgeons: Jacob Arauz MD Chief Complaint: Chronic blood clot in left leg ASSESSMENT/PLAN: Patient is considered intermediate risk for this intermediate level 3 risk procedure/surgery () with no reducible risk factors. Based on the above evaluation, the benefits of the planned procedure likely exceed the risks. The patient is medically optimized to proceed with the planned procedure without any further cardiopulmonary testing. 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] -placed on Xerelto by vascular, will continue - Managed per surgery 2) GERD -no medications --avoidance of triggers encouraged 3) Former smoker 03/2022 - 0.5 pack(s) a day for about 40 years - EKG as below - H&H pending - No 4) HTN -complaint with antihypertensives - no was on medication and nt on medication currently Toxic Drug Monitoring: Drug: na Route: Oral Monitoring: EKG - yes VS - as above Labs: Yes - -encouraged lifestyle modifications -reports monitoring BP at home - no BP Readings from Last 3 Encounters: 12/13/22 114/69 12/10/22 112/80 12/07/22 110/64 Lab Results Component Value Date GLUCOSE 95 10/16/2022 CALCIUM 9.9 10/16/2022 NA 135 10/16/2022 K 3.9 10/16/2022 CO2 24 10/16/2022 CL 104 10/16/2022 BUN 15 10/16/2022 CREATININE 1.03 10/16/2022 5)Hypothyroidism - On levothyroxine Yes - Managed by PCP Yes Lab Results Component Value Date TSH 2.706 12/02/2021 6)HLD -statin therapy - Yes, crestor fenofibrate -lifestyle modifications encouraged Lab Results Component Value Date CHOL 112 12/02/2021 CHOL 148 08/03/2021 CHOL 132 01/11/2021 Lab Results Component Value Date HDL 21 (L) 12/02/2021 HDL 31 (L) 08/03/2021 HDL 32 (L) 01/11/2021 No results found for: LDLCALC Lab Results Component Value Date TRIG 187 (A) 12/02/2021 TRIG 284 (A) 08/03/2021 TRIG 225 (A) 01/11/2021 9) pituitary tumor -endocrinology following -dostinex PO Visit Type: Pre-Admission Testing Visit Labs Ordered: NO - COMPLETE PRIOR TO PAT VISIT Sleep Referral Ordered: NO - NEGATIVE SCREEN PER SLEEP REFERRAL PROTOCOL Total time spent (which include face to face and non face to face encounters) : 30 minutes Toxic drug monitoring/narrow therapeutic index drug monitoring : # Drug name : synthroid # Route administered : po # Method of monitoring : tsh PAT Protocol referenced includes: 1. Anesthesia Lab Protocol Orders 2. Perioperative Cardiovascular Risk Assessment 3. Anesthesia Assessment 4. Pain Assessment and Acute Pain Service Consult (if appropriate) 5. Medical Clearance/Consult from Internal Medicine (IMS) 6. Shower/Wash Order (for designated surgeries) 7. BEENA Screen and Sleep Clinic Referral (if appropriate) History Of Present Illness: 62 y.o. male who we are asked to see/evaluate by [facility] 02 for pre-operative evaluation prior to . LEFT ILIOFEMORAL DEEP VEIN THROMBOSIS, THROMBECTOMY AND STENTING (Left) [66553 CPT(R)] TRANSCATHETER PLACEMENT OF AN INTRAVASCULAR STENT(S), OPEN OR PERCUTANEOUS INITIAL VEIN (Left) [34666 CPT(R)] Anesthesia type: General The patient is a 62 y.o. male who returns for follow-up of left iliofemoral deep vein thrombosis diagnosed in September 2022. He has been taking Xarelto since that time. The swelling goes up and down with his activity. He came to the emergency room over the weekend due to worsening swelling. Duplex does show deep vein thrombosis up to the left common iliac vein. I could not see any evaluation of the vena cava. There is no thrombus on the right. I found an old CT without contrast which does show significant compression of the left common iliac vein by the overlying right iliac artery. He has been taken to the 0 over the weekend and the swelling has improved but is still significant. He would like to see if there is any further treatment. He is retired but remains quite active.. Circulatory Acute deep vein thrombosis (DVT) of left lower extremity, unspecified vein (HCC) - Primary Relevant Orders Vascular US IVC iliac vein duplex complete Chronic deep vein thrombosis (DVT) of iliofemoral vein (HCC) This is now a left iliofemoral chronic DVT will evaluate vena cava with duplex prior to bringing him for attempted left lois (more content not included)...[facility]10-13-2023 Hospital Discharge instructions* Discharge Instructions* Kendra Sauer APRN - 12/07/2022 3:00 PM EDT OK for activity as tolerated. Continue to take Xarelto regularly. Follow up in office for consideration of surgery. Return to ED with significantly worsening symptoms, loss of sensation, or significant color change of lower extremity. * Attachments The following attachments cannot be sent through Care Everywhere. * Deep Vein Thrombosis (Blood Clots in the Legs) Discharge Instructions ([place]) documented in this [facility]10-13-2023 Emergency department Note* Lorena Castillo RN - 12/07/2022 2:23 PM EDT Surgery resident at bedside. Lorena Castillo RN 12/07/22 5940 [id number] Emergency department Note* Lorena Castillo RN - 12/07/2022 2:23 PM EDT Surgery resident at bedside. Lorena Castillo RN 12/07/22 1423 * Lorena Catsillo RN - 12/07/2022 1:33 PM EDT Vascular at bedside. Lorena Castillo RN 12/07/22 1333 * Lorena Castillo RN - 12/07/2022 1:18 PM EDT Pt ambulated to restroom with steady and even gait. Lorena Castillo RN 12/07/22 1319 * Lorena Castillo RN - 12/07/2022 1:11 PM EDT Report from GARY Becerril. Lorena Castillo RN 12/07/22 1311 * oYlanda Patel DO - 12/07/2022 9:15 AM EDT Emergency Department Encounter [facility] EMERGENCY DEPT Patient: Jaylen Queen : 1960 Date of Evaluation: 12/07/2022 ED Supervising Physician: Yolanda Patel DO I independently examined and evaluated Jaylen Queen. This will serve as my Supervisory note and shared attestation. I did perform a substantive portion of the visit including all aspects of the Medical Decision Making. I wore appropriate PPE for the entirety of this encounter. In brief, Jaylen Queen is a 62 y.o. that presents to the emergency department for leg swelling. Patient has a known blood clot. Is on Xarelto. Came to the ED as feels as if its gotten bigger. Focused exam: Does have a large swollen leg, normal DP pulses bilaterally. Brief ED course/MDM: At this time we did talk to vascular surgery they were comfortable with seeingthe patient on an outpatient basis. Patient at this time does have good pulses, no evidence of cerulea Reagan's, patient has normal sensation no concerns for arterial occlusion. Patient is going to bedischarged home we did give him return precautions. All diagnostic, treatment, and disposition decisions were made by myself in conjunction with the Resident. I also supervised hardy portions of any procedures performed by the Resident. For all further details of the patient's emergency department visit, please see their documentation. (Comment: Please note this report has been produced using speech recognition software and may contain errors related to that system including errors in grammar, punctuation, and spelling, as well as words and phrases that may be inappropriate. If there are any questions or concerns please feel freeto contact the dictating provider for clarification.) Yolanda Patel DO [employer] Yolanda Patel DO 12/07/22 1809 * Munira Mcgregor RN - 12/07/2022 9:15 AM EDT Bed: 06 Expected date: Expected time: Means of arrival: Comments: Triage Munira Mcgregor RN 12/07/22930 documented in this [facility]10-13-2023 NoteVascular Surgery Consultation Note Reason for Consult: LLE DVT HISTORY OF PRESENT ILLNESS: The patient is a 62 y.o. male with past medical history of pituitary gland tumor, who presents to [facility] for an ongoing LLE DVT. Vascular surgery is consulted for evaluation and treatment. Per the patient, he first got a DVT after a [address] on 10/14 of this year. He was discharged on xarelto in a stable condition. He followed up with his primary care doctor, Dr Basilio, in the outpatient setting for the problem. Repeat US was done on 11/[address] Basilio which demonstrated no change from the previous exam the month prior. Patient reports he continues to have ongoing pain and swelling in the leg. He reports no pain at rest, but says he is unable to walk more than 200 yards without pain. He says the pain is throughout his entire leg. Additionally, he reports swelling in the leg that is associated with the pain after activity. He reports it sometimes takes a day or two for the swelling to decrease. He reports the DVT is actively affecting his day to day life. He reports good compliance with the xarelto and has not missed a dose. Patient reports he was in [place] on 12/04 when he experienced an exacerbation of symptoms after activity. He presented to a facility there, whose records are available to us. A repeat US there demonstrates nonocclusive thrombus of superficial femoral vein, profunda and common femoral vein. This would be an improvement compared to the previous studies. Patient reports no symptoms in the right leg or elsewhere. Reports no history of DVT or blood clotting disorders. Smokes 1 cigarette every few weeks. IMPRESSION: Chronic DVT of Left Leg RECOMMENDATIONS: -Continue Xarelto -Activity as tolerated -Follow up in outpatient for Saturday 2:15pm with Dr Arauz in [place] for possible discussion about thrombectomy Past Medical History: Diagnosis Date Abscess of scrotum 09/15/2020 Last Assessment & Plan: Urology office was contacted and I spoke to the nurse practitioner Farzana and she was going to see if they could rearrange some schedules to get him in [place]. She was going to call and talk with Jaylen. 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 NSR Troponin negative. Echocardiogram EF 69, no significant valvular disease. Recommend cardiology as outpatient for further workup- likely stress test. - patient declining. 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 Tobacco use disorder Unspecified hearing loss Unspecified hypothyroidism Past Surgical History: Procedure Laterality Date CHOLECYSTECTOMY COLONOSCOPY KNEE SURGERY Right SMALL INTESTINE SURGERY TONSILLECTOMY (HISTORICAL) Current Medications: Allergies: Meperidine Social History Socioeconomic History Marital status: Spouse name: Not on file Number of children: Not on file Years of education: Not on file Highest education level: Not on file Occupational History Not on file Tobacco Use Smoking status: Some Days Packs/day: .25 Types: Cigarettes Last attempt to quit: 03/2022 Years since quittin.6 Smokeless tobacco: Never Substance and Sexual Activity Alcohol use: Yes Drug use: Yes Types: Marijuana Sexual activity: Not on file Other Topics Concern Not on file Social History Narrative Not on file Social Determinants of Health Financial Resource Strain: Low Risk (02/06/2022) Overall Financial Resource Strain (CARDIA) Difficulty of Paying Living Expenses: Not hard at all Food Insecurity: No Food Insecurity (02/06/2022) Hunger Vital Sign Worried About Running Out of Food in the Last Year: Never true Ran Out of Food in the Last Year: Never true Transportation Needs: No Transportation Needs (10/12/2022) PRAPARE - Transportation Lack of Transportation (Medical): No Lack of Transportation (Non-Medical): No Physical Activity: Not on file Stress: Not on file Social Connections: Not on file Intimate Partner Violence: Not At Risk (10/12/2022) Humiliation, Afraid, Rape, and Kick questionnaire Fear of Current or Ex-Partner: No Emotionally Abused: No Physically Abused: No Sexually Abused: No Housing Stability: Unknown (09/25 (more content not included)...[facility]10-13-2023 Emergency department Note* Lorena Castillo RN - 12/07/2022 1:33 PM EDT Vascular at bedside. Lorena Castillo RN 12/07/22 4032 [facility] [id number] Emergency department Note* Lorena Castillo RN - 12/07/2022 1:18 PM EDT Pt ambulated to restroom with steady and even gait. Lorena Castillo RN 12/07/22 1319 [facility] HospitalUbenpp54-20-6684 Emergency department Note* Lorena Castillo RN - 12/07/2022 1:11 PM EDT Report from GARY Becerril. Lornea Castillo RN 12/07/22 1311 [facility] HospitalDznwdu79-80-9248 Emergency department Note* Munira Mcgregor RN - 12/07/2022 9:15 AM EDT Bed: 06 Expected date: Expected time: Means of arrival: Comments: Triage Munira Mcgregor RN 12/07/22 0931 [facility] HospitalBcfvso84-07-1164 Physician Emergency department Note* Yolanda Patel DO - 12/07/2022 9:15 AM EDT Emergency Department Encounter [facility] EMERGENCY DEPT Patient: Jaylen Queen : 1960 Date of Evaluation: 12/07/2022 ED Supervising Physician: Yolanda Patel DO I independently examined and evaluated Jaylen Queen. This will serve as my Supervisory note and shared attestation. I did perform a substantive portion of the visit including all aspects of the Medical Decision Making. I wore appropriate PPE for the entirety of this encounter. In brief, Jaylen Queen is a 62 y.o. that presents to the emergency department for leg swelling. Patient has a known blood clot. Is on Xarelto. Came to the ED as feels as if its gotten bigger. Focused exam: Does have a large swollen leg, normal DP pulses bilaterally. Brief ED course/MDM: At this time we did talk to vascular surgery they were comfortable with seeingthe patient on an outpatient basis. Patient at this time does have good pulses, no evidence of cerulea Reagan's, patient has normal sensation no concerns for arterial occlusion. Patient is going to bedischarged home we did give him return precautions. All diagnostic, treatment, and disposition decisions were made by myself in conjunction with the Resident. I also supervised hardy portions of any procedures performed by the Resident. For all further details of the patient's emergency department visit, please see their documentation. (Comment: Please note this report has been produced using speech recognition software and may contain errors related to that system including errors in grammar, punctuation, and spelling, as well as words and phrases that may be inappropriate. If there are any questions or concerns please feel freeto contact the dictating provider for clarification.) Yolanda Patel DO [employer] Yolanda Patel DO 12/07/221808 [facility] Phone: 1(794) 623-418609-21-2023 History of Present illness Narrative* Cheryl Basilio MD - 11/15/2022 2:51 PM EDT Lasix documented in this [facility]09-21-2023 Telephone encounter Note* Telephone Encounter - Farzana Samaniego RN - 11/15/2022 2:10 PM EDT S: Patient spoke with [facility] nurse regarding splotches on left leg and US results B: Onset of symptoms/concern US done yesterday and leg splotches today A: Pt has a blood clot in left leg. Had US yesterday. Has not heard from the office about the results. Started with red splotches on the calf of left leg this morning. Has been getting worse. Looks like a rash. Denies fever, chest pain, or sob. Leg is hot to touch. The swelling extends up to top ofthigh. Pt very upset that no one has returned his calls. Has called 4 times since stat US yesterday. Pt states he is on his way to the office because he is very upset and he wants help. He states he feels like no one cares if he losses his leg or even his life. R: [facility] called back line. Dr Basilio is currently with pt's and will review chart when he is finished. Pt notified. Instructed to call back with new or worsening symptoms. Reason for Disposition Thigh, calf, or ankle swelling in only one leg Protocols used: Leg Swelling and [id number] [facility] [id number] Telephone encounter Note* Telephone Encounter - Arjun Velarde MA - 11/15/2022 2:10 PM EDT Duplicate message, there is already 2 other encounters in regards to this. Pt will get results oncethey are reviewed by provider. [facility] [id number] Miscellaneous Notes* Telephone Encounter - Farzana Samaniego RN - 11/15/2022 2:10 PM EDT S: Patient spoke with [facility] nurse regarding splotches on left leg and US results B: Onset of symptoms/concern US done yesterday and leg splotches today A: Pt has a blood clot in left leg. Had US yesterday. Has not heard from the office about the results. Started with red splotches on the calf of left leg this morning. Has been getting worse. Looks like a rash. Denies fever, chest pain, or sob. Leg is hot to touch. The swelling extends up to top ofthigh. Pt very upset that no one has returned his calls. Has called 4 times since stat US yesterday. Pt states he is on his way to the office because he is very upset and he wants help. He states he feels like no one cares if he losses his leg or even his life. R: [facility] called back line. Dr Basilio is currently with pt's and will review chart when he is finished. Pt notified. Instructed to call back with new or worsening symptoms. Reason for Disposition Thigh, calf, or ankle swelling in only one leg Protocols used: Leg Swelling and [id number] * Telephone Encounter - Arjun Velarde MA - 11/15/2022 2:10 PM EDT Duplicate message, there is already 2 other encounters in regards to this. Pt will get results oncethey are reviewed by provider. * Telephone Encounter - Dat Talbot RN - 11/15/2022 1:53 PM EDT S: Patient spoke with [facility] nurse regarding US results B: 11/14/22 US bilateral lower extremities A: Patient would like the results of his US done yesterday. Patient very upset that nobody has callhim. R: Call patient with results. Reason for Disposition Nursing judgment Protocols used: Information Only Call - No [id number] documented in this [facility]09-21-2023 Telephone encounter Note* Telephone Encounter - Farzana Samaniego RN - 11/15/2022 2:09 PM EDT Duplicate call Reason for Disposition Caller has already spoken with another triager and has no further questions Protocols used: No Contact or Duplicate Contact [id number] [facility] [id number] Miscellaneous Notes* Telephone Encounter - Farzana Samaniego RN - 11/15/2022 2:09 PM EDT Duplicate call Reason for Disposition Caller has already spoken with another triager and has no further questions Protocols used: No Contact or Duplicate Contact [id number] documented in this [facility]09-21-2023 Telephone encounter Note* Telephone Encounter - Dat Talbot RN - 11/15/2022 1:53 PM EDT S: Patient spoke with [facility] nurse regarding US results B: 11/14/22 US bilateral lower extremities A: Patient would like the results of his US done yesterday. Patient very upset that nobody has callhim. R: Call patient with results. Reason for Disposition Nursing judgment Protocols used: Information Only Call - No [id number] [facility] [id number] Miscellaneous Notes* Telephone Encounter - Shannan Rodriguez - 11/15/2022 10:19 AM EDT Name of caller: Jaylen Contact phone number: [phone] Relationship to Patient: patient Provider: [facility] Practice: [facility] Chief Complaint/Reason for Call: Patient called to find out the results of the US he had done yesterday. He would like someone to call him back to go over the results with him. Please advise Best time of day caller can be reached: any Patient advised that office/PCP has 24-48 business hours to return their call: Yes documented in this [facility]SPro[facility] HospitalHhfedg49-98-1824 Telephone encounter Note* Telephone Encounter - Shannan Rodriguez - 11/15/2022 10:19 AM EDT Name of caller: Jaylen Contact phone number: [phone] Relationship to Patient: patient Provider: [facility] Practice: [facility] Chief Complaint/Reason for Call: Patient called to find out the results of the US he had done yesterday. He would like someone to call him back to go over the results with him. Please advise Best time of day caller can be reached: any Patient advised that office/PCP has 24-48 business hours to return their call: Yes [facility] HospitalKrvavw35-14-2037 Telephone encounter Note* Telephone Encounter - Nubia Gallo RN - 11/14/2022 5:14 PM EDT S: Patient spoke with [facility] nurse regarding vascular US results. B: Onset of symptoms/concern began today. A: Patient calling regarding vascular US LE results. He got a MyChart notification that results were in his MyChart. He would like someone to go over those with him. R: Please call patient at to go over the results with him and with further recommendations. No further needs at this time. Patient instructed to call back with new or worsening symptoms. [facility] [id number] Miscellaneous Notes* Telephone Encounter - Nubia Gallo RN - 11/14/2022 5:14 PM EDT S: Patient spoke with [facility] nurse regarding vascular US results. B: Onset of symptoms/concern began today. A: Patient calling regarding vascular US LE results. He got a MyChart notification that results were in his MyChart. He would like someone to go over those with him. R: Please call patient at to go over the results with him and with further recommendations. No further needs at this time. Patient instructed to call back with new or worsening symptoms. * Telephone Encounter - Natacha Barry RN - 11/14/2022 12:58 PM EDT S: Patient spoke with [facility] nurse regarding question if he should be wearing compression stockings. B: Onset of symptoms/concern September worsening A: Patient was diagnosed in early September with blood clot in the left leg. He has swelling from the left toes to the top of the thigh. He saw Dr Basilio today and is scheduled for an MRI today at 3:00 pm. I forgot to ask about compression stockings, I tried the knee high ones and they cut into thetop of the calf and the thigh high ones drove me crazy Left leg is tender to touch but swelling see ms worse. No SOB. Patient wants to know if he needs compression stockings and is there any place heshould go to get them. R: TE sent to PCP office. Patient understands care advice. No further needs at this time. Patient instructed to call back with new or worsening symptoms. Reason for Disposition Nursing judgment Protocols used: Information Only Call - No [id number] documented in this encounterSProtestant Deaconess [id number] Telephone encounter Note* Telephone Encounter - Natacha Barry RN - 11/14/2022 12:58 PM EDT S: Patient spoke with [facility] nurse regarding question if he should be wearing compression stockings. B: Onset of symptoms/concern September worsening A: Patient was diagnosed in early September with blood clot in the left leg. He has swelling from the left toes to the top of the thigh. He saw Dr Basilio today and is scheduled for an MRI today at 3:00 pm. I forgot to ask about compression stockings, I tried the knee high ones and they cut into thetop of the calf and the thigh high ones drove me crazy Left leg is tender to touch but swelling see ms worse. No SOB. Patient wants to know if he needs compression stockings and is there any place heshould go to get them. R: TE sent to PCP office. Patient understands care advice. No further needs at this time. Patient instructed to call back with new or worsening symptoms. Reason for Disposition Nursing judgment Protocols used: Information Only Call - No [id number] [facility] [id number] History of Present illness Narrative* Cheryl Basilio MD - 11/14/2022 11:00 AM EDT Images from the original note were not included. [facility] INTERNAL [facility]IC[facility] [address] [place] [address] [facility] [address] Dept: [phone] Dept Loc: [phone] Visit type: Established patient Reason for Visit: Follow-up (C/o left leg swelling) Assessment and Plan 1. Acute deep vein thrombosis (DVT) of left lower extremity, unspecified vein (HCC) - Vascular US lower extremity venous duplex bilateral - Will reassess with repeat duplex - Continue Xarelto - Elevate as much as able Follow up if symptoms worsen or fail to improve. Subjective HPI Jef presents today for follow-up on left lower extremity DVT. Reports that swelling has not improved since diagnosis. Worsens throughout the day as he is on his feet. Improved somewhat with elevation, but not by much. Reports that pain is significantly improved, but not swelling. Has been taking his Xarelto as prescribed and denies any bleeding symptoms. Review of Systems Cardiovascular: Positive for leg swelling. Allergies Allergen Reactions Meperidine Nausea And Vomiting Demerol Outpatient Medications Prior to Visit Medication Sig Dispense Refill cabergoline (Dostinex) 0.5 MG tablet take 1 1/2 tablet by mouth ON SATURDAY AND SATURDAY 36 tablet 1 fenofibrate (Triglide) 160 MG tablet Take 1 tablet (160 mg) by mouth daily. 90 tablet 1 levothyroxine (Synthroid, Levoxyl) 100 MCG tablet Take 1 tablet (100 mcg) by mouth daily. 90 tablet1 niacin (Niaspan) 1000 MG ER tablet Take 1 tablet (1,000 mg) by mouth daily. 90 tablet 1 rivaroxaban (Xarelto) 20 MG tablet Take 1 tablet (20 mg) by mouth with evening meal. Take with food. 30 tablet 0 rosuvastatin (Crestor) 10 MG tablet Take 1 tablet (10 mg) by mouth daily. 90 tablet 1 tadalafil (Cialis) 5 MG tablet Take 1 tablet (5 mg) by mouth daily. 90 tablet 1 tamsulosin (Flomax) 0.4 MG 24 hr capsule Take 1 capsule (0.4 mg) by mouth daily. 30 capsule 2 No facility-administered medications prior to visit. Past Medical History: Diagnosis Date Abscess of scrotum 09/15/2020 Last Assessment & Plan: Urology office was contacted and I spoke to the nurse practitioner Farzana and she was going to see if they could rearrange some schedules to get him in [place]. She was going to call and talk with Jaylen. 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 NSR Troponin negative. Echocardiogram EF 69, no significant valvular disease. Recommend cardiology as outpatient for further workup- likely stress test. - patient d eclining. 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 Tobacco use disorder Unspecified hearing loss Unspecified hypothyroidism Social History Tobacco Use Smoking status: Some Days Packs/day: 0.25 Types: Cigarettes Last attempt to quit: 03/2022 Years since quittin.6 Smokeless tobacco: Never Substance Use Topics Alcohol use: Yes Past Surgical History: Procedure Laterality Date CHOLECYSTECTOMY COLONOSCOPY KNEE SURGERY Right SMALL INTESTINE SURGERY TONSILLECTOMY (HISTORICAL) Family History Adopted: Yes Problem Relation Name Age of Onset No Known Problems Father Cancer Mother lung Objective BP 137/84 (BP Location: Right arm, Patient Position: Sitting, BP Cuff Size: Large adult) Pulse 91 Wt 243 lb 12.8 oz (111 kg) SpO2 94% BMI 31.30 kg/m Physical Exam Constitutional: General: He is not in acute distress. Appearance: Normal appearance. Cardiovascular: Rate and Rhythm: Normal rate and regular rhythm. Pulses: Normal pulses. Heart sounds: Normal heart sounds. No murmur heard. No gallop. Pulmonary: Effort: Pulmonary effort is normal. Breath sounds: Normal breath sounds. No wheezing. Abdominal: General: Bowel sounds are normal. Palpations: Abdomen is soft. Tenderness: There is no abdominal tenderness. There is no guarding or rebound. Musculoskeletal: Right lower leg: No edema. Left lower leg: Edema present. Neurological: Mental Status: He is alert. Cheryl Basilio MD documented in this [facility]09-20-2023 Instructions* Patient Instructions* Cheryl Basilio MD - 11/14/2022 11:00 AM EDT The number for [facility] Central Scheduling is [phone]. documented in this [facility]09-19-2023 Telephone encounter Note* Telephone Encounter - Khalida Currie RN - 11/13/2022 10:35 AM EDT S: Patient spoke with [facility] nurse regarding swelling in left leg still - blood clot. B: Onset of symptoms/concern ongoing since beginning of September. A: Pt states he was diagnosed with blood clot in left lower leg on 10-12-22. Pt is taking Xarelto 20mg every evening as directed. Pt is concerned because he is still having a lot of swelling to his left leg. Swelling is from his toes up to his hip area; slightly tinted in color but no bright red color noted; painful to touch in certain areas. Denies fever, chest pain, SOB, nausea, vomiting. Pt sta kaur it is hard to wear pants at times due to the swelling in his calf area. Wants appt for eval. Ptis leaving in 2 weeks for vacation. R: Appt scheduled for eval tomorrow. Ins verified. Pt to bring photo ID; Ins card to appt. Denies any Covid exposure, symptoms or recent testing for Covid. Pt to call back if any further ques or concerns. Reason for Disposition Patient wants to be seen Answer Assessment - Initial Assessment Questions 1. ONSET: When did the swelling start? (e.g., minutes, hours, days) Beginning of September 2. LOCATION: What part of the leg is swollen? Are both legs swollen or just one leg? Left leg - from toes up to top of thigh 3. SEVERITY: How bad is the swelling? (e.g., localized; mild, moderate, severe) - Localized - small area of swelling localized to one leg - MILD pedal edema - swelling limited to foot and ankle, pitting edema < 1/4 inch (6 mm) deep, rest and elevation eliminate most or all swelling - MODERATE edema - swelling of lower leg to knee, pitting edema > 1/4 inch (6 mm) deep, rest andelevation only partially reduce swelling - SEVERE edema - swelling extends above knee, facial or hand swelling present severe 4. REDNESS: Does the swelling look red or infected? No - slight tinge of color to skin 5. PAIN: Is the swelling painful to touch? If Yes, ask: How painful is it? (Scale 1-10; mild, moderate or severe) Some spots are painful 6. FEVER: Do you have a fever? If Yes, ask: What is it, how was it measured, and when did it start? No 7. CAUSE: What do you think is causing the leg swelling? Blood clot in leg - large part of lower leg 8. MEDICAL HISTORY: Do you have a history of heart failure, kidney disease, liver failure, or cancer? Kidney issue 9. RECURRENT SYMPTOM: Have you had leg swelling before? If Yes, ask: When was the last time? What happened that time? No 10. OTHER SYMPTOMS: Do you have any other symptoms? (e.g., chest pain, difficulty breathing) No 11. : Is there any chance you are ? When was your last menstrual period? N/A Protocols used: Leg Swelling and [id number] [facility] [id number] Miscellaneous Notes* Telephone Encounter - Khalida Currie RN - 11/13/2022 10:35 AM EDT S: Patient spoke with [facility] nurse regarding swelling in left leg still - blood clot. B: Onset of symptoms/concern ongoing since beginning of September. A: Pt states he was diagnosed with blood clot in left lower leg on 10-12-22. Pt is taking Xarelto 20mg every evening as directed. Pt is concerned because he is still having a lot of swelling to his left leg. Swelling is from his toes up to his hip area; slightly tinted in color but no bright red color noted; painful to touch in certain areas. Denies fever, chest pain, SOB, nausea, vomiting. Pt sta kaur it is hard to wear pants at times due to the swelling in his calf area. Wants appt for eval. Ptis leaving in 2 weeks for vacation. R: Appt scheduled for eval tomorrow. Ins verified. Pt to bring photo ID; Ins card to appt. Denies any Covid exposure, symptoms or recent testing for Covid. Pt to call back if any further ques or concerns. Reason for Disposition Patient wants to be seen Answer Assessment - Initial Assessment Questions 1. ONSET: When did the swelling start? (e.g., minutes, hours, days) Beginning of September 2. LOCATION: What part of the leg is swollen? Are both legs swollen or just one leg? Left leg - from toes up to top of thigh 3. SEVERITY: How bad is the swelling? (e.g., localized; mild, moderate, severe) - Localized - small area of swelling localized to one leg - MILD pedal edema - swelling limited to foot and ankle, pitting edema < 1/4 inch (6 mm) deep, rest and elevation eliminate most or all swelling - MODERATE edema - swelling of lower leg to knee, pitting edema > 1/4 inch (6 mm) deep, rest andelevation only partially reduce swelling - SEVERE edema - swelling extends above knee, facial or hand swelling present severe 4. REDNESS: Does the swelling look red or infected? No - slight tinge of color to skin 5. PAIN: Is the swelling painful to touch? If Yes, ask: How painful is it? (Scale 1-10; mild, moderate or severe) Some spots are painful 6. FEVER: Do you have a fever? If Yes, ask: What is it, how was it measured, and when did it start? No 7. CAUSE: What do you think is causing the leg swelling? Blood clot in leg - large part of lower leg 8. MEDICAL HISTORY: Do you have a history of heart failure, kidney disease, liver failure, or cancer? Kidney issue 9. RECURRENT SYMPTOM: Have you had leg swelling before? If Yes, ask: When was the last time? What happened that time? No 10. OTHER SYMPTOMS: Do you have any other symptoms? (e.g., chest pain, difficulty breathing) No 11. : Is there any chance you are ? When was your last menstrual period? N/A Protocols used: Leg Swelling and [id number] documented in this [facility]Pro[facility] [id number] Telephone encounter Note* Telephone Encounter - Cheryl Basilio MD - 10/31/2022 9:28 PM EDT Ordered. Thanks [id number] Miscellaneous Notes* Telephone Encounter - Cheryl Basilio MD - 10/31/2022 9:28 PM EDT Ordered. Thanks * Telephone Encounter - Mitzy Velez - 10/31/2022 10:54 AM EDT Ordering provider: Dr. Basilio Date of last office visit: 10/24/22 Date of next office visit: N/A Updated/Validated preferred pharmacy: Yes [id number] - [address] [phone] Patient instructed to contact the pharmacy prior to picking up the medication: Yes (1) Medication name: fenofibrate (Triglide) 160 MG tablet Medication dosage: 160 MG Monthly quantity needed: 30 How many day supply requestin days Medication route: oral (PO) Medication administration time(s): daily If taking medication PRN, reason for taking medication: N/A If this is a controlled substance do you receive this or any other controlled medication from any other doctor or facility: N/A Date of last refill (see medication tab): 07/04/22 last written (2) Medication name: levothyroxine (Synthroid, Levoxyl) 100 MCG tablet (ALMOST OUT) Medication dosage: 100 mcg (Micrograms) Monthly quantity needed: 30 How many day supply requestin days Medication route: oral (PO) Medication administration time(s): daily If taking medication PRN, reason for taking medication: N/A If this is a controlled substance do you receive this or any other controlled medication from any other doctor or facility: N/A Date of last refill (see medication tab): last written 03/13/22 (3) Medication name: niacin (Niaspan) 1000 MG ER tablet Medication dosage: 1000 MG ER Monthly quantity needed: 30 How many day supply requestin days Medication route: oral (PO) Medication administration time(s): daily If taking medication PRN, reason for taking medication: N/A If this is a controlled substance do you receive this or any other controlled medication from any other doctor or facility: N/A Date of last refill (see medication tab): 05/07/22 last written (4) Medication name: rosuvastatin (Crestor) 10 MG tablet Medication dosage: 10 MG Monthly quantity needed: 30 How many day supply requestin days Medication route: oral (PO) Medication administration time(s): daily If taking medication PRN, reason for taking medication: N/A If this is a controlled substance do you receive this or any other controlled medication from any other doctor or facility: N/A Date of last refill (see medication tab): 05/07/22 last written (5) Medication name: cabergoline (Dostinex) 0.5 MG tablet Medication dosage: 0.5 MG Monthly quantity needed: 36 How many day supply requestin days Medication route: oral (PO) Medication administration time(s): take 1 1/2 tablet by mouth ON SATURDAY AND SATURDAY If taking medication PRN, reason for taking medication: N/A If this is a controlled substance do you receive this or any other controlled medication from any other doctor or facility: N/A Date of last refill (see medication tab): 08/22/22 last written documented in this [facility]09-06-2023 Telephone encounter Note* Telephone Encounter - Mitzy Velez - 10/31/2022 10:54 AM EDT Ordering provider: Dr. Basilio Date of last office visit: 10/24/22 Date of next office visit: N/A Updated/Validated preferred pharmacy: Yes [id number] [phone] Patient instructed to contact the pharmacy prior to picking up the medication: Yes (1) Medication name: fenofibrate (Triglide) 160 MG tablet Medication dosage: 160 MG Monthly quantity needed: 30 How many day supply requestin days Medication route: oral (PO) Medication administration time(s): daily If taking medication PRN, reason for taking medication: N/A If this is a controlled substance do you receive this or any other controlled medication from any other doctor or facility: N/A Date of last refill (see medication tab): 07/04/22 last written (2) Medication name: levothyroxine (Synthroid, Levoxyl) 100 MCG tablet (ALMOST OUT) Medication dosage: 100 mcg (Micrograms) Monthly quantity needed: 30 How many day supply requestin days Medication route: oral (PO) Medication administration time(s): daily If taking medication PRN, reason for taking medication: N/A If this is a controlled substance do you receive this or any other controlled medication from any other doctor or facility: N/A Date of last refill (see medication tab): last written 03/13/22 (3) Medication name: niacin (Niaspan) 1000 MG ER tablet Medication dosage: 1000 MG ER Monthly quantity needed: 30 How many day supply requestin days Medication route: oral (PO) Medication administration time(s): daily If taking medication PRN, reason for taking medication: N/A If this is a controlled substance do you receive this or any other controlled medication from any other doctor or facility: N/A Date of last refill (see medication tab): 05/07/22 last written (4) Medication name: rosuvastatin (Crestor) 10 MG tablet Medication dosage: 10 MG Monthly quantity needed: 30 How many day supply requestin days Medication route: oral (PO) Medication administration time(s): daily If taking medication PRN, reason for taking medication: N/A If this is a controlled substance do you receive this or any other controlled medication from any other doctor or facility: N/A Date of last refill (see medication tab): 05/07/22 last written (5) Medication name: cabergoline (Dostinex) 0.5 MG tablet Medication dosage: 0.5 MG Monthly quantity needed: 36 How many day supply requestin days Medication route: oral (PO) Medication administration time(s): take 1 1/2 tablet by mouth ON SATURDAY AND SATURDAY If taking medication PRN, reason for taking medication: N/A If this is a controlled substance do you receive this or any other controlled medication from any other doctor or facility: N/A Date of last refill (see medication tab): 08/22/22 last written [facility]08-22-2023 Miscellaneous Notes* Care Coordination - Unknown Case Management - 10/16/2022 4:01 PM EDT Patient Choice Patient Name: JAYLEN QUEEN Date of : 1960 All Providers Sent Referral Name: [facility] Address: [address], [facility] [address], [place] [address] Name: [facility] Address: [address] [place] [address] Name: [facility] Phone: [phone] Address: [address] [place] [address] [address] [place] [address] Name: [facility] Phone: [phone] Address: [address] [place] [address] Name: [facility] Phone: [phone] Address: [address] [place] [address] Name: [facility] Phone: [phone] Address: [address] [place] [address] Name: [facility] Phone: [phone] Address: [address] [place] [address] Name: [facility] [place] (All Offices) Phone: [phone] Address: [address] [address] Name: [facility] Phone: [phone] Address: [address] [place] [address] Name: [facility] [place] Phone: [phone] Address: [address] [address] Name: [facility] Phone: [phone] Address: [address] [place] [address] Name: [facility] Phone: [phone] Address: [address] [place] [address] Name: [facility] Phone: [phone] Address: [address] [address] * Home Care - Brian Chanel RN - 10/16/2022 4:01 PM EDT Discussed with patient the accepting agencies for home care. The patient states that he was given aprescription from the pharmacy for insulin and is so upset right now that he doesn't even want the home care any longer. Notified the agencies. Referral is close out. Home care to sign off. * Home Care - Brian Chanel RN - 10/16/2022 3:17 PM EDT Educated patient on Home Care and services available. Patient is agreeable to receiving home care services at this time. Patient was given choice of home care agencies available in the area and is agreeable to having referrals made with agencies that staff the patients service location. Referrals have been sent via [employer]. Liaison to discuss available agencies to accept case with patient upon receiving responses. * Care Coordination - Natacha Deluna RN - 10/16/2022 11:52 AM EDT Did update patient that had spoken with Ventura at Dr. Basilio's office and she is working on prior authorization for additional refills of his xarelto. Patient acknowledges verbal understanding. Still complaining of pain. Did update primary care nurse at time of visit and also wanting to speak withphysician regarding results of ultrasound. Did update nurse of this. Was evaluated by therapist and recommended home independently with no assistive devices required. * Care Coordination - Natacha Deluna RN - 10/16/2022 6:45 AM EDT Images from the original note were not included. Care Management Progress Note Spoke with [facility] yesterday afternoon. They are unable to obtain PA for med due to patient not being cardiology patient. Did call and speak with Ventura at Dr. Basilio's office. She will submit for PA for patient's remaining refills of xarelto. She will notify patient if med not approved and discuss with Dr. Basilio alternative OACs. Will place this information on AVS for patient. Patient complaining of blurred vision/EARLY yesterday afternoon. Stat CT scan obtained and negative.Repeat left lower extremity US yesterday. Pt/ot evals are ordered and pending. Has not required iv pain medication in last 24 hours. Pain scores 3-7. Tentative discharge home vs home with [facility] when medically stable. Will monitor therapy evals for equipment and therapy needs at discharge. Discharge Milestones and Delays Expected Date/Time: 10/15/[address] discharge order Complete med reconciliation Case mgmt discharge readiness Clinical Stability Diagnsotic Workup Expected Discharge History Expected Date/Time Set By Reviewed At 10/15/2022 LEIGH Goldstein 10/15/2022 9:55 AM 10/14/2022 Natacha Frankel, 10/12/2022 10:32 PM 10/14/2022 Natacha Frankel, DO 10/12/2022 9:10 PM Length of Stay (Days): 4 GMLOS: 3.0 . * Care Coordination - LEIGH Goldstein - 10/15/2022 3:19 PM EDT S/W, follow up TCC did message that Dr. Gray office will do the prior auth on Xarelto. * Rapid Response Note - Danelle Louis RN - 10/15/2022 12:56 PM EDT Rapid Response Reason Rapid Response Reason Rapid Response Notification Reason(s): Other (comment) (blurred vision/headache like I have a headrush from taking pain medication. Onset 12:24. Glucose check 98. Pt taking lovenox for a left leg DVT) Vitals Vital Signs Resp: 16 Review of Systems: Neurological R Pupil Size (mm): 3 R Pupil Reaction: Brisk L Pupil Size (mm): 3 L Pupil Reaction: Brisk NIH= 0 see flowsheet from 12:36 Provider Notifications Provider Notification Reason for Communication: Evaluate Provider Name: Dr Reyes Provider Role: Attending physician Method of Communication: Face to face Response: In department Notification Time: 1245 Anaphylaxis Assessment Chest Pain Assessment: Epistaxis Assessment: Extravasation Assessment: Fall Assessment Patient Disposition Patient Disposition Patient Disposition: Continue monitoring at current level of care Pt eval by Dr Reyes, pt taking lovenox. Dr Reyes orders a head CT * Care Coordination - Natacha Deluna RN - 10/15/2022 12:34 PM EDT Did call and speak with Xiomara from [facility] and requested that PA be initiated onxarelto. She will contact [facility] once obtained. Updated attending of this. * Care Coordination - Natacha Deluna RN - 10/15/2022 9:34 AM EDT Per meds to beds xarelto will require PA [phone]. * Care Coordination - Natacha Deluna RN - 10/15/2022 6:33 AM EDT Images from the original note were not included. Care Management Progress Note Family picked up first 30 days worth of xarelto from [facility](free with coupon). Awaiting call from meds to beds today with monthly cost for medication and to determine if it requires PA. Seen by hematology. Okay to transition to oral OAC. Remains on subcutaneous lovenox. On po percocet and iv dilaudid for pain. Discharge plan home when medically stable. Will update attending once confirmation of copay of OAC received from [facility]s to beds. .Electronically signed by Natacha Deluna RN on10/15/2022 at 6:39 AM Discharge Milestones and Delays Expected Date/Time: 10/14/[address] discharge order Complete med reconciliation Case mgmt discharge readiness Clinical Stability Diagnsotic Workup Expected Discharge History Expected Date/Time Set By Reviewed At 10/14/2022 Natacha Frankel DO 10/12/2022 10:32 PM 10/14/2022 Natacha Frankel, 10/12/2022 9:10 PM Length of Stay (Days): 3 GMLOS: No GMLOS Documented * Care Coordination - Natacha Deluna RN - 10/14/2022 4:53 PM EDT Did epic chat Dr. Reyes regarding xarelto script sent from ER only being for 10 day supply. He sent over new script for 30 day supply to [facility] in [place]. Called and spoke with pharmacist at [facility] and 30 day script has already been picked up by patient's brother in law and 10 day script was cancelled. Patient did not accrue any charge for his 30 day script. . * Care Plan - Angela Harris RN - 10/14/2022 3:40 PM EDT The patient is Moderately Stable - Low risk of patient condition declining or worsening The patient's goals for the shift include go to [facility] The clinical goals for the shift include relieve constipation Barriers to progression during shift include inability to make bowl movement. Patient is till regularly taking pain medication . Bowel regimen escalated. Senna BID added, given PRN milk of magnesium,suppository and miralax without sufficient movement . Recommendations to address these barriers include continue bowel regimen, increase time between pain medication ( could consider non opioid modalities), lite fare diet, and increase ambulation as tolerate. Patient given warm prune juice. * Care Plan - Angela Harris RN - 10/13/2022 4:57 PM EDT The patient is Moderately Stable - Low risk of patient condition declining or worsening The patient's goals for the shift include pain control The clinical goals for the shift include pain control Over the shift, the patient made progress towards goal of pain control. Attempting to increase ambulation as tolerated , walking in the halls with assistance. While walking, LLE becomes dusky and pain increases in medial side if upper left thigh. After rest , color and pain improves. * Care Coordination - Natacha Deluna RN - 10/13/2022 3:56 PM EDT Called [facility] in [place]. Xarelto script does require PA. Had pharmacist run without insurance and only use FREE 30 day copay card and was able to go through with no cost. Returned to patient's room. Met with he and his daughter Isa. Apologized for earlier misunderstanding. Explained thathad spoken to [facility] in [place] and his xarelto had gone through with no charge. Did provide with $10 month copay card and explained use. Explained would have meds to beds check cost on additional doses of xarelto and with coupon card he would only need to pay $10 month and coupon covers up to $3400 per year. Second script for xarelto may not require PA due to dosing differences with DVT and either hospital would be able to do it prior to dc or pcp's office does. He does follow with Dr. Basilio's office. Message sent to meds to beds to check Saturday. Did discuss home going needs. States lives alone. Does have cane he can use if needed. Denies anticipating any needs at this time upon discharge. Did provide with TCC contact information. Patient and daughter requesting to speak with intelligence group supervisor about separate incident. [employer] Detail updated. Discharge plan is home when medically stable. * Care Coordination - Natacha Deluna RN - 10/13/2022 3:50 PM EDT Care Managment Initial Assessment Date: 10/13/2022 Patient Name: Jaylen Queen : 1960 Patient Information Source of Information: Patient Name/Contact Information: ISA HENSLEY [phone] DAUGHTER MAURY QUEEN DAUGHTER [phone] Cognition/Language: WFL - Within Functional Limits Permission given to speak with patient paper sales representative/caregiver as indicated: Yes Confirmation of Payer with patient/family: Yes Payer Name: MMO [place]: No Confirmation of Primary Care Physician: Confirmed PCP Name: DR. BASILIO Seen in last 2 years?: Yes Primary Caregiver: Self If assistance needed, confirmed caregiver ready, willing and able to care for patient at discharge:Yes Confirmed with: DAUGHTERS Living Arrangements Current Residence: House Number of Floors 1 Number of Entry Steps: 2 Bed/Bath Levels: Both first floor Facility: Facility Name: Plan to Return: Yes Lives with: Alone Support Systems: Children Activities of Daily Living Ambulation: Independent Bathing/Dressing: Independent Elimination/Continence/Toileting: Independent Feeding: Independent Who Assists with Activities of Daily Living: NA Instrumental Activities of Daily Living Prescription Coverage: Yes Pharmacy Used: [facility] [place] Medication Management: Independent Transportation/Shopping: Independent Transportation Mode: Car Needs Assistance with Transportation at Discharge: No (DAUGHTER ABLE TO TRANSPORT) Meal Preparation: Independent Laundry/Cleaning: Independent Finances/Bill Paying: Independent Communication: Independent Types of Care Services/Equipment Utilized Care Services: Dialysis Type: NA Durable Medical Equipment: Shower Seat, Cane Patient's Goal/Discharge Plan Patient expects to be discharged to: HOME Discharge Planning Actions: Continue to follow Patient's Choice Rights and [employer] and Collaborative Relationships Disclosed as Indicated for Post-Acute Care: NA Interdisciplinary Team Engagement: Social Work Referral for: Additional Informational. Admitted from home with DVT. Admitted to medical hematology consulted. Daily labs. Spoke with attending via [employer] chat and wanted to know costs of OAC for patient due to patient being commercial coverage he is able to receive both eliquis and xarelto for free. Attending indicated he was going to discharge on xarelto. Entered patients room to provide with xarelto coupons. Told wanted to give him these before he was discharged and attempted to explain. Patient became angry and stated we were no different here from [facility] and he wanted to speak with the doctor. He threw off his blankets and stated he was out of here. Did update primary care nurse and attending... Natacha Deluna RN * Significant Event - Bhaskar Reyes MD - 10/13/2022 3:26 PM EDT Seen and examined. Chart/labs/tests reviewed. D/w pt and family at bedside and RN and CM separately. Please see H&P done by Dr Allison earlier today for complete details. documented in this [facility]08-22-2023 Note* Care Coordination - Unknown Case Management - 10/16/2022 4:01 PM EDT Patient Choice Patient Name: JAYLEN QUEEN Date of : 1960 All Providers Sent Referral Name: [facility] [employer] Address: [facility] Anali Willis, [address] [address] Name: [facility] Address: [address] [place] [address] Name: [facility] [employer] Phone: [phone] Address: [address] [place] [address] [address] [place] [address] Name: [employer] Phone: [phone] Address: [address] [place] [address],[place] [address] Name: [employer] Phone: [phone] Address: [address] [place] [address] Name: [facility] Phone: [phone] Address: [address] [place] [address] Name: [facility] Phone: [phone] Address: [address] [place] [address] Name: [facility] [place] (All Offices) Phone: [phone] Address: [address] [address] [address]: [facility] Phone: [phone] Address: [address] [place] [address] Name: [facility] [place] Phone: [phone] Address: [address] [address] Name: [facility] Phone: [phone] Address: [address] [place] [address] Name: [facility] Central[facility]ake Phone: [phone] Address: [address] [place] [address] Name: [facility] Phone: [phone] Address: [address] [address] [address] [facility] [id number] Note* Home Care - Brian Chanel RN - 10/16/2022 4:01 PM EDT Discussed with patient the accepting agencies for home care. The patient states that he was given aprescription from the pharmacy for insulin and is so upset right now that he doesn't even want the home care any longer. Notified the agencies. Referral is close out. Home care to sign off. [facility] [id number] Note* Care Coordination - Unknown Case Management - 10/16/2022 4:01 PM EDT Patient Choice Patient Name: JAYLEN QUEEN Date of : 1960 All Providers Sent Referral Name: [facility] Address: [address], [facility] [address], [place] [address] Name: [facility] Address: [address] [place] [address] Name: [facility] Phone: [phone] Address: [address] [place] [address] [address] [place] [address] Name: [facility] [facility] Phone: [phone] Address: [address] [place] [address] Name: [facility] [employer] Phone: [phone] Address: [address] [place] [address] Name: [facility] Phone: [phone] Address: [address] [place] [address] Name: [facility] Phone: [phone] Address: [address] [place] [address] Name: [facility] [place] (All Offices) Phone: [phone] Address: [address] [address] [facility]: [facility] Phone: [phone] Address: [address] [place] [address] Name: [facility] [place] Phone: [phone] Address: [address] [address] Name: [facility] Phone: [phone] Address: [address] [place] [address] Name: [facility] Central[facility] Intake Phone: [phone] Address: [address] [place] [address] Name: [facility] Phone: [phone] Address: [address] [address] [place] [id number] Note* Home Care - Brian Chanel RN - 10/16/2022 4:01 PM EDT Discussed with patient the accepting agencies for home care. The patient states that he was given aprescription from the pharmacy for insulin and is so upset right now that he doesn't even want the home care any longer. Notified the agencies. Referral is close out. Home care to sign off. [place] [id number] Nurse Note* Nasra Bass RN - 10/16/2022 3:31 PM EDT Discharge instructions reviewed with patient. New prescriptions, follow up appointments and signs and symptoms also reviewed. Patient ambulated from unit with a friend. Patient to pickle maker prescriptions at hospital pharmacy. [place] [id number] Nurse Note* Nasra Bass RN - 10/16/2022 3:31 PM EDT Discharge instructions reviewed with patient. New prescriptions, follow up appointments and signs and symptoms also reviewed. Patient ambulated from unit with a friend. Patient to pickle maker prescriptions at hospital pharmacy. documented in this [place] [id number] Hospital Discharge instructions* Discharge Instr - Activity* Nasra Bass RN - 10/16/2022 3:21 PM EDT As tolerated * Appointments* Natacha Deluna RN - 10/16/2022 6:58 AM EDT MANAGER GALLERY SPOKE WITH VENTURA AT DR. BASILIO'S OFFICE ABOUT PRIOR AUTHORIZATION NEEDED FOR YOUR REFILLS FOR XARELTO. SHE WILL INITIATE THIS. SHE WILL CONTACT YOU IF THERE ARE ANY PROBLEMS. * Attachments The following attachments cannot be sent through Care Everywhere. * Deep Vein Thrombosis (Blood Clots in the Legs) Discharge Instructions ([facility]) * Going Home on Blood Thinners ([facility]) documented in this [facility]08-22-2023 Note* Home Care - Brian Chanel RN - 10/16/2022 3:17 PM EDT Educated patient on Home Care and services available. Patient is agreeable to receiving home care services at this time. Patient was given choice of home care agencies available in the area and is agreeable to having referrals made with agencies that staff the patients service location. Referrals have been sent via Careport. Liaison to discuss available agencies to accept case with patient upon receiving responses. [id number]* Home Care - Brian Chanel RN - 10/16/2022 3:17 PM EDT Educated patient on Home Care and services available. Patient is agreeable to receiving home care services at this time. Patient was given choice of home care agencies available in the area and is agreeable to having referrals made with agencies that staff the patients service location. Referrals have been sent via Careport. Liaison to discuss available agencies to accept case with patient upon receiving responses. [place] [id number] Hospital course Narrative* Tamara Turcios MD - 10/16/2022 2:01 PM EDT Discharge Summary Jaylen Queen : 1960 ADMIT DATE: 10/12/2022 DISCHARGE DATE: 10/16/2022 PRIMARY CARE PHYSICIAN: Cheryl Basilio VISIT STATUS: Admission CODE STATUS: Full Code DISCHARGE DIAGNOSES: Principal Problem: Acute deep vein thrombosis (DVT) of left lower extremity, unspecified vein (HCC) LLE DVT-extensive EARLY/blurry vision constipation Hypercalcemia resolved HTN Hypothyroidism GERD BPH with urinary retention/obstruction CECILIA resolved HOSPITAL COURSE: aJylen is a 62 year old male, who presents to ED for diffuse left sided leg pain after 2 [address] in 5 days. He was diagnosed with extensive DVT and placed on Xeralto on discharge. Did have a headache and CT head showed no acute process. Was treated for constipation with relieve. SIGNIFICANT DIAGNOSTIC STUDIES: CT head 10/15 - no acute process XR tib fib - 10/12 - No acute process US retroperitoneum 10/11: follow up renal cyst - simple, benign cyst. CONSULTANTS: Heme- onc - recommended 6 months anticoagulation RECOMMENDED NEXT STEPS: 6 months anticoagulation DISCHARGE MEDICATIONS: Medication List START taking these medications polyethylene glycol (PEG) 3350 17 g packet Commonly known as: Miralax Take 17 g by mouth 2 times daily for 3 days. senna-docusate sodium 8.6-50 MG tablet Commonly known as: Senokot-S Take 2 tablets by mouth 2 times daily. CONTINUE taking these medications cabergoline 0.5 MG tablet Commonly known as: Dostinex take 1 1/2 tablet by mouth ON SATURDAY AND SATURDAY fenofibrate 160 MG tablet Commonly known as: Triglide take 1 tablet by mouth once daily levothyroxine 100 MCG tablet Commonly known as: Synthroid, Levoxyl Take 1 tablet (100 mcg) by mouth daily. niacin 1000 MG ER tablet Commonly known as: Niaspan Take 1 tablet (1,000 mg) by mouth daily. oxyCODONE-acetaminophen 5-325 MG tablet Commonly known as: Percocet Take 1 tablet by mouth every 6 hours as needed for severe pain (7-10) for up to 5 days. rivaroxaban 20 MG tablet Commonly known as: Xarelto Take 1 tablet (20 mg) by mouth with evening meal. Take with food. rosuvastatin 10 MG tablet Commonly known as: Crestor Take 1 tablet (10 mg) by mouth daily. tadalafil 5 MG tablet Commonly known as: Cialis Take 1 tablet (5 mg) by mouth daily. tamsulosin 0.4 MG 24 hr capsule Commonly known as: Flomax Take 1 capsule (0.4 mg) by mouth daily. Where to Get Your Medications These medications were sent to [facility] [address] [place] [address] Hours: Saturday to Saturday 10 am to 6 pm polyethylene glycol (PEG) 3350 17 g packet rivaroxaban 20 MG tablet senna-docusate sodium 8.6-50 MG tablet tamsulosin 0.4 MG 24 hr capsule DIET: Adult diet Regular ACTIVITY: No restriction. COMPLEXITY OF FOLLOW UP: [x] Moderate Complexity: follow up within 7-14 calendar days (94379) [] Severe Complexity: follow up within 7 calendar days ([address]) FOLLOW UP TESTING, PENDING RESULTS OR REFERRALS AT TRANSITIONAL CARE VISIT: [] Yes [x] No PENDING STUDIES: none DISPOSITION: Home FACILITY/HOME CARE AGENCY NAME: Follow up with Cheryl Basilio MD [address] [place] [address] [address] [facility] [address] Schedule an appointment as soon as possible for a visit in 2 day(s) INSTRUCTIONS TO MA/SW: Please call patient on day after discharge (must document patient contacted within 2 business days of discharge). FOLLOW UP QUESTIONS FOR MA/SW: 1. Did you get medications filled and taking them as instructed from discharge? 2. Are you following your discharge instructions from your hospital stay? 3. Please confirm patient is scheduled for a follow up appointment within the above time frame. DISCHARGE TIME: > 30 minutes SIGNED: Tamara Turcios MD 10/16/2022, 2:01 PM documented in this [facility]08-22-2023 History of Present illness Narrative* Tamara Turcios MD - 10/16/2022 12:07 PM EDT Images from the original note were not included. Hospitalist Progress Note 10/16/[id number]: Please secure chat me on patient care issues. [phone]: Please secure chat [facility] Hospitalist for any issues. Subjective: Admit Date: 10/12/2022 PCP: Cheryl Basilio MD [facility] A CHIEF COMPLAINT: DVT left LLE Interval History: No overnight issues. Denies chest pain, sob, abdominal pain, nausea, vomiting, diarrhea, constipation, fevers, or chills. Adult diet Regular @[id number]@ 24HR INTAKE/OUTPUT: No intake or output data in the 24 hours ending 10/16/22 1207 Past Medical History: Past Medical History: Diagnosis Date Abscess of scrotum 09/15/2020 Last Assessment & Plan: Urology office was contacted and I spoke to the nurse practitioner Farzana and she was going to see if they could rearrange some schedules to get him in [place]. She was going to call and talk with Jaylen. 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 NSR Troponin negative. Echocardiogram EF 69, no significant valvular disease. Recommend cardiology as outpatient for further workup- likely stress test. - patient d eclining. 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 Tobacco use disorder Unspecified hearing loss Unspecified hypothyroidism LABS: CBC: Recent Labs 10/14/22 0327 10/15/22 0159 10/16/22 0212 WBC 8.2 8.8 8.0 RBC 4.08* 4.32* 4.36* HGB 12.7* 13.3 13.5 HCT 37.0* 38.8* 39.0* MCV 90.9 89.9 89.6 RDW 13.4 13.2 13.0 PLT 255 272 277 BMP: Recent Labs 10/14/227 10/15/22 0159 10/16/22 0212 NA 138 137 135 K 4.4 4.1 3.9 CL 105 104 104 CO2 26 26 24 BUN 17 16 15 CREATININE 1.15 1.06 1.03 GLUCOSE 90 105* 95 CALCIUM 9.9 9.8 9.9 ANIONGAP 8 8 7 LIVER PROFILE: Recent Labs 10/14/2232610/15/22 0159 10/16/22 021 AST 18 19 20 ALT 11 11 11 BILITOT 0.4 0.5 0.5 ALKPHOS 53 54 54 PROT 6.4 7.1 7.1 PT/INR: No results for input(s): PROTIME, INR in the last 72 hours. CARDIAC ENZYMES: No results for input(s): TROPONINI in the last 72 hours. Procalcitonin: No results found for: PROCAL COVID-19 PCR: No results for input(s): COVID19 in the last 72 hours. Objective: Vitals: BP (!) 148/92 (BP Location: Left arm, Patient Position: Lying) Pulse 68 Temp 36.8 C (98.2 F) (Temporal) Resp 17 SpO2 97% Pulse Ox: SpO2 Av % Min: 93 % Max: 98 % Supplemental O2: Physical Exam Vitals and nursing note reviewed. Constitutional: Appearance: He is normal weight. HENT: Head: Normocephalic. Eyes: General: Right eye: No discharge. Left eye: Discharge present. Conjunctiva/sclera: Conjunctivae normal. Cardiovascular: Rate and Rhythm: Normal rate and regular rhythm. Heart sounds: No murmur heard. Pulmonary: Effort: No respiratory distress. Breath sounds: No wheezing or rales. Abdominal: General: Bowel sounds are normal. There is no distension. Tenderness: There is no abdominal tenderness. Musculoskeletal: General: Tenderness (right groin.,) present. Right lower leg: Edema present. Left lower leg: Edema present. Skin: General: Skin is warm and dry. Capillary Refill: Capillary refill takes less than 2 seconds. Neurological: General: No focal deficit present. Mental Status: He is alert. Medications: enoxaparin, 1 mg/kg, SubCUTAneous, q12h fenofibrate, 160 mg, Oral, Daily levothyroxine, 100 mcg, Oral, Daily pantoprazole, 40 mg, Oral, qAM AC polyethylene glycol (PEG) 3350, 17 g, Oral, BID rosuvastatin, 10 mg, Oral, Daily senna-docusate sodium, 2 tablet, Oral, BID tamsulosin, 0.4 mg, Oral, Daily Assessment Acute, acute on chronic, unstable/uncontrolled chronic problems: LLE DVT-extensive EARLY/blurry vision constipation Hypercalcemia resolved HTN Hypothyroidism GERD BPH with urinary retention/obstruction CECILIA resolved Interval History Jaylen is a 62 year old male, who presents to ED for diffuse left sided leg pain after 2 [address] in 5 days. He was diagnosed with extensive DVT and placed on Xeralto on discharge. Did have a headache and CT head showed no acute process. Was treated for constipation with relieve. Medical Decision Making - discharge on Xeralto - Contact PCP for 2-3 month prescriptions - 3 months sufficient but recommend a whole 6 months. - bowel regimen on discharge as needed. - Heme-onc seen, - pain control. -am labs, replace lytes prn -increase activity -DVT prophylaxis: [] Lovenox [] Heparin [] SCDs [x] Encourage ambulation [] Already on Anticoagulation Anticipated Discharge - Date - 10/16/2022 - Location - Home - Pending the following - meds to bed Total time spent (which include face to face and non face to face encounters) : 55 minutes Toxic drug monitoring/narrow therapeutic index drug monitoring : # Drug name : Xeralto # Route administered : oral # Method of monitoring : cbc Extended Emergency Contact Information Primary Emergency Contact: Maury Queen Mobile Relation: Child Nurse Technician needed? No Secondary Emergency Contact: Isa Jiang Mobile Relation: Other Tamara Turcios MD Division of Hospitalist Medicine [employer] care [employer] PAGER: Epic chat * Percy De La Rosa PT - 10/16/2022 9:52 AM EDT Physical Therapy Facility/Department: [facility] Physical Therapy Initial Evaluation NAME: Jaylen Queen : 1960 Date of Service: 10/16/2022 Discharge Recommendations: Outpatient PT, Home independently PT Equipment Recommendations Equipment Needed: No Assessment Requires PT Follow-Up: No Assessment: Pt admitted 10/12 with extensive LLE DVT-he has been therapeutically anticoagulated on Lovenox. At baseline he is IND with no device. He demo all functional mobility IND with no device. Ptwith pain on ambulating but no LOB or safety concerns. He demo hans cute therapy needs, rec home INDwith OPPT if pain or weakness noted upon home going, handout given Performance Deficits/Impairments: Increased pain Decision Making: Medium Complexity History: extensive LLE DVT Exam: [facility] Clinical Presentation: Pt admitted 10/12 with LLE DVT. He has PMH as indicated which contribute to his clinical presentation. He demo no acute therapy needs, rec home with IND and OPPT, low complex decision making Barriers to Learning: None Barriers to Learning: None Activity Tolerance Activity Tolerance: Patient Tolerated treatment well, Patient limited by pain Patient Diagnosis(es): The primary encounter diagnosis was Acute deep vein thrombosis (DVT) of leftlower extremity, unspecified vein (HCC). A diagnosis of Ambulatory dysfunction was also pertinent to this visit. has a past medical history of Abscess of scrotum (09/15/2020), Acute cystitis without hematuria (02/27/2022), Benign neoplasm of pituitary gland and craniopharyngeal duct (pouch) (HCC), Chest pain, unspecified, Chills (05/28/2022), Diverticulitis, Esophageal reflux, Essential hypertension, benign, Flankpain (11/27/2021), Kidney stone, Other abnormal blood chemistry, Other and unspecified hyperlipidemia, Other anterior pituitary disorders (HCC), Other testicular hypofunction, Pituitary tumor, Pyelonephritis (12/03/2021), Tobacco use disorder, Unspecified hearing loss, and Unspecified hypothyroidism. has a past surgical history that includes Knee surgery (Right); Cholecystectomy; Small intestine surgery; Colonoscopy; and Tonsillectomy. Restrictions Restrictions/Precautions Restrictions/Precautions: General Precautions Required Braces or Orthoses?: No Vision/Hearing Vision: Within Functional Limits Hearing: Functional/adequate for paticipation in therapy Cognition/Orientation Overall Cognitive Status: WFL Overall Orientation Status: Within Functional Limits Subjective General Chart Reviewed: Yes Patient Assessed for Rehabilitation Services: Yes Additional Pertinent Hx: extensive LLE DVT- common iliac, external iliac, femoral, saphenofemoral, distal femoral,profunda femoral-has been therapeutically anticoagulated on Lovenox Family / Caregiver Present: No Follows Commands: Within Functional Limits General Comment Comments: Per RN pt okay for therapy Subjective Subjective: Pt pleasant and agree to PT, reports ambulating earlier in hallway Patient Stated Goal: decrease pain Pain Assessment Pain Assessment: 0-10 Pain Score: 5 - Moderate pain Pain Type: Acute pain Pain Location: Hip, Leg Pain Orientation: Left Pain Interventions: Ambulation/increased activity, Cold applied, Repositioned (RN aware) Social/Functional History Social/Functional History Lives With: Daughter Type of Home: House Home Layout: One level Home Access: Stairs to enter with rails Entrance Stairs - Number of Steps: 2 Bathroom Shower/Tub: Tub/Shower unit Bathroom Toilet: Standard Bathroom Equipment: Grab bars in shower Bathroom Accessibility: Accessible ADL Assistance: Independent Homemaking Assistance: Independent Homemaking Responsibilities: Yes Ambulation Assistance: Independent With device?: No Transfer Assistance: Independent Objective Observation/Palpation Posture: Good Observation: no lines/tubes/drains Gross Assessment: Yes AROM: Within functional limits Strength: Within functional limits Tone: Normal Sensation: Intact Bed mobility Supine to Sit: Independent Sit to Supine: Independent Scooting: Independent Comment: Pt denies dizziness, demo bed mobility IND Transfers Sit to Stand: Independent Stand to sit: Independent Comment: Pt complete functional transfer to no device IND, demo no LOB or safety concerns Ambulation Ambulation: Yes Ambulation 1 Surface 1: Level tile Device 1: No device Assistance 1: Independent Quality of Gait 1: No gait deviations, No LOB Quality of Gait Comment 1: Pt ambulate IND with no device, normalized reciprocal pattern with no LOB. Pt limited by pain when ambulating but did not impace pt safety Distance (ft) 1: ~150 ft Comments 1: Pt limited by pain, otherwise no concerns for home safety/mobility, I encouraged pt to continue to mobilize with RN clearance during admit Balance Posture: Good Sitting - Static: Good Sitting - Dynamic: Good Standing - Static: Good Standing - Dynamic: Good Plan Times per Week: eval only Plan Comment: goals and treatment plan established in collaboration with pt Safety Safety Devices Safety Devices in Place: Yes Type of Devices: Nurse notified, All fall risk precautions in place, Call light within reach, Left in bed, Gait belt AM-PAC Score AM-PAC Inpatient Mobility Raw Score (No Stairs) : 20 Goals Eval only Education Education Given To: Patient Education Provided: PT Role, General Safety, Plan of Care, Discharge recommendations, Functional Mobility Training Education Method: Verbal Barriers to Learning: None Education Outcome: Verbalized understanding, Demonstrated understanding Therapy Time Individual Co-treatment Time In 904 Time Out 912 Minutes 8 Percy De La Rosa PT * Bhaskar Reyes MD - 10/15/2022 12:50 PM EDT Hospitalist Progress Note 10/15/2022 1414-1810: Please secure chat me for patient care issues. [phone]: Please secure chat [facility] Hospitalist for any issues. Subjective: Admit Date: 10/12/2022 PCP: Lake Perales MD Room#: B4450/B4-307 A Interval History: Sudden onset of severe EARLY and blurry vision. No limb weakness. He denies chest pain, sob, abdominal pain, nausea, vomiting, diarrhea, fevers, or chills. Tolerating diet. Still no good bowel movement yet. D/w pt and family at bedside and RN separately. D/w Danelle DESK REPORTER RN separately also. Adult diet Regular @[id number]@ 24HR INTAKE/OUTPUT: Intake/Output Summary (Last 24 hours) at 10/15/2022 1250 Last data filed at 10/14/2022 1443 Gross per 24 hour Intake 120 ml Output -- Net 120 ml Past Medical History: Past Medical History: Diagnosis Date Abscess of scrotum 09/15/2020 Last Assessment & Plan: Urology office was contacted and I spoke to the nurse practitioner Farzana and she was going to see if they could rearrange some schedules to get him in [place]. She was going to call and talk with Jaylen. 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 NSR Troponin negative. Echocardiogram EF 69, no significant valvular disease. Recommend cardiology as outpatient for further workup- likely stress test. - patient d eclining. 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 Tobacco use disorder Unspecified hearing loss Unspecified hypothyroidism LABS: CBC: Recent Labs 10/12/22 1350 10/14/22 0327 10/15/22 0159 WBC 9.9 8.2 8.8 RBC 4.71 4.08* 4.32* HGB 14.6 12.7* 13.3 HCT 43.0 37.0* 38.8* MCV 91.3 90.9 89.9 RDW 13.0 13.4 13.2 PLT 273 255 272 BMP: Recent Labs 10/12/22 1350 10/14/22 0327 10/15/22 0159 NA 137 138 137 K 4.8 4.4 4.1 CL 104 105 104 CO2 21* 26 26 BUN 18 17 16 CREATININE 1.45* 1.15 1.06 GLUCOSE 121* 90 105* CALCIUM 11.1* 9.9 9.8 ANIONGAP 12 8 8 LIVER PROFILE: Recent Labs 10/14/22 0327 10/15/22 0159 AST 18 19 ALT 11 11 BILITOT 0.4 0.5 ALKPHOS 53 54 PROT 6.4 7.1 PT/INR: No results for input(s): PROTIME, INR in the last 72 hours. CARDIAC ENZYMES: No results for input(s): TROPONINI in the last 72 hours. Procalcitonin: No results found for: PROCAL COVID-19 PCR: No results for input(s): COVID19 in the last 72 hours. Objective: Vitals: BP (!) 150/87 (BP Location: Left arm, Patient Position: Lying) Pulse 87 Temp 37.2 C (99F) (Temporal) Resp 15 SpO2 98% Pulse Ox: SpO2 Av.7 % Min: 94 % Max: 98 % Physical Exam Vitals and nursing note reviewed. Constitutional: Appearance: He is not diaphoretic. HENT: Head: Normocephalic. Eyes: Extraocular Movements: Extraocular movements intact. Cardiovascular: Rate and Rhythm: Normal rate and regular rhythm. Pulses: Normal pulses. Heart sounds: Normal heart sounds. Pulmonary: Effort: Pulmonary effort is normal. Breath sounds: Normal breath sounds. Abdominal: General: Bowel sounds are normal. There is no distension. Palpations: Abdomen is soft. Tenderness: There is abdominal tenderness. Musculoskeletal: General: Normal range of motion. Cervical back: Normal range of motion and neck supple. Right lower leg: No edema. Left lower leg: Edema present. Skin: General: Skin is warm. Neurological: General: No focal deficit present. Mental Status: He is alert and oriented to person, place, and time. Mental status is at baseline. Psychiatric: Mood and Affect: Mood normal. Medications: enoxaparin, 1 mg/kg, SubCUTAneous, q12h fenofibrate, 160 mg, Oral, Daily levothyroxine, 100 mcg, Oral, Daily pantoprazole, 40 mg, Oral, qAM AC rosuvastatin, 10 mg, Oral, Daily senna-docusate sodium, 2 tablet, Oral, BID tamsulosin, 0.4 mg, Oral, Daily Assessment LLE DVT-extensive EARLY/blurry vision constipation Hypercalcemia resolved HTN Hypothyroidism GERD BPH with urinary retention/obstruction CECILIA resolved Medical Decision Making STAT head CT, may need Neurology evaluation, PT evaluation, continue lovenox- transition or oral AC-DOAC vs coumadin depending on insurance coverage, continue senna-docusate BID and prn MOM, add miralax BID, suppository prn, may need enema, Hem/Onc has seen, follow up labs, pain control, discharge planning, see orders. -am labs, replace lytes prn -increase activity -DVT prophylaxis: [x] Lovenox [] Heparin [] SCDs [x] Encourage ambulation [] Already on Anticoagulation Anticipated Discharge - Date - 10/16-10/17 - Location - Home - Pending the following - clinical improvement, completion of work up and when OK with Hem/Onc Total time spent (which include face to face and non face to face encounters) : 49 minutes Toxic drug monitoring/narrow therapeutic index drug monitoring : # Drug name : lovenox # Route administered : SQ # Method of monitoring : daily CBC and monitor for bleeding Extended Emergency Contact Information Primary Emergency Contact: Maury Queen Mobile Relation: Child Nurse Technician needed? No Secondary Emergency Contact: Isa Jiang Mobile Relation: Other BHASKAR REYES MD Division of Hospitalist Medicine [facility] PAGER: Epic chat * Bhaskar Reyes MD - 10/14/2022 1:26 PM EDT Images from the original note were not included. Hospitalist Progress Note 10/14/2022 [phone]: Please secure chat me for patient care issues. [phone]: Please secure chat [facility] Hospitalist for any issues. Subjective: Admit Date: 10/12/2022 PCP: Lake Perales MD Room#: [id number] A Interval History: Constipated. LLE with continued pain and swelling. Some difficulty ambulating. Hedenies chest pain, sob, abdominal pain, nausea, vomiting, diarrhea, fevers, or chills. Tolerating diet. D/w pt and RN at bedside. D/w Dr Cooper separately via secure chat. Adult diet Regular @[id number]@ 24HR INTAKE/OUTPUT: Intake/Output Summary (Last 24 hours) at 10/14/2022 1326 Last data filed at 10/14/2022 0916 Gross per 24 hour Intake 720 ml Output -- Net 720 ml Past Medical History: Past Medical History: Diagnosis Date Abscess of scrotum 09/15/2020 Last Assessment & Plan: Urology office was contacted and I spoke to the nurse practitioner Farzana and she was going to see if they could rearrange some schedules to get him in [place]. She was going to call and talk with Jaylen. 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 NSR Troponin negative. Echocardiogram EF 69, no significant valvular disease. Recommend cardiology as outpatient for further workup- likely stress test. - patient d eclining. 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 Tobacco use disorder Unspecified hearing loss Unspecified hypothyroidism LABS: CBC: Recent Labs 10/12/22 1350 10/14/22 0327 WBC 9.9 8.2 RBC 4.71 4.08* HGB 14.6 12.7* HCT 43.0 37.0* MCV 91.3 90.9 RDW 13.0 13.4 PLT 273 255 BMP: Recent Labs 10/12/22 1350 10/14/22 0327 NA 137 138 K 4.8 4.4 CL 104 105 CO2 21* 26 BUN 18 17 CREATININE 1.45* 1.15 GLUCOSE 121* 90 CALCIUM 11.1* 9.9 ANIONGAP 12 8 LIVER PROFILE: Recent Labs 10/14/22 0327 AST 18 ALT 11 BILITOT 0.4 ALKPHOS 53 PROT 6.4 PT/INR: No results for input(s): PROTIME, INR in the last 72 hours. CARDIAC ENZYMES: No results for input(s): TROPONINI in the last 72 hours. Procalcitonin: No results found for: PROCAL COVID-19 PCR: No results for input(s): COVID19 in the last 72 hours. Objective: Vitals: BP 138/82 (BP Location: Right arm, Patient Position: Lying) Pulse 66 Temp 36.2 C (97.1 F) (Temporal) Resp 14 SpO2 97% Pulse Ox: SpO2 Av % Min: 94 % Max: 97 % Physical Exam Vitals and nursing note reviewed. Constitutional: General: He is not in acute distress. HENT: Head: Normocephalic and atraumatic. Eyes: Extraocular Movements: Extraocular movements intact. Pupils: Pupils are equal, round, and reactive to light. Cardiovascular: Rate and Rhythm: Normal rate and regular rhythm. Pulses: Normal pulses. Heart sounds: Normal heart sounds. Pulmonary: Effort: Pulmonary effort is normal. Breath sounds: Normal breath sounds. Abdominal: General: Bowel sounds are normal. There is no distension. Palpations: Abdomen is soft. Tenderness: There is abdominal tenderness. There is no guarding or rebound. Musculoskeletal: General: Normal range of motion. Cervical back: Normal range of motion and neck supple. Right lower leg: No edema. Left lower leg: Edema present. Skin: General: Skin is warm. Neurological: General: No focal deficit present. Mental Status: He is alert and oriented to person, place, and time. Mental status is at baseline. Psychiatric: Mood and Affect: Mood normal. Medications: enoxaparin, 1 mg/kg, SubCUTAneous, q12h fenofibrate, 160 mg, Oral, Daily levothyroxine, 100 mcg, Oral, Daily pantoprazole, 40 mg, Oral, qAM AC rosuvastatin, 10 mg, Oral, Daily senna-docusate sodium, 2 tablet, Oral, BID tamsulosin, 0.4 mg, Oral, Daily Assessment LLE DVT constipation Hypercalcemia HTN Hypothyroidism GERD BPH with urinary retention/obstruction CECILIA resolved Medical Decision Making Continue lovenox-transition or oral AC-DOAC vs coumadin depending on insurance coverage, added senna-docusate BID and prn MOM, suppository prn, Hem/Onc has seen, follow up labs, pain control, discharge planning, see orders. -am labs, replace lytes prn -increase activity -DVT prophylaxis: [x] Lovenox [] Heparin [] SCDs [x] Encourage ambulation [] Already on Anticoagulation Anticipated Discharge - Date - 10/15-10/16 - Location - Home - Pending the following - clinical improvement, completion of work up and when OK with Hem/Onc Total time spent (which include face to face and non face to face encounters) : 47 minutes Toxic drug monitoring/narrow therapeutic index drug monitoring : # Drug name : lovenox # Route administered : SQ # Method of monitoring : daily CBC and monitor for bleeding Extended Emergency Contact Information Primary Emergency Contact: Maury Queen Mobile Relation: Child Nurse Technician needed? No Secondary Emergency Contact: Isa Jiang Mobile Relation: Other BHASKAR REYES MD Division of Hospitalist Medicine [facility] PAGER: Epic chat * Tegan Murry - 10/14/2022 9:14 AM EDT Nutrition rescreen completed. Patient assigned a level 1. documented in this [facility]08-22-2023 Note* Care Coordination - Natacha Deluna RN - 10/16/2022 11:52 AM EDT Did update patient that had spoken with Ventura at Dr. Basilio's office and she is working on prior authorization for additional refills of his xarelto. Patient acknowledges verbal understanding. Still complaining of pain. Did update primary care nurse at time of visit and also wanting to speak withphysician regarding results of ultrasound. Did update nurse of this. [facility] with no assistive devices required. [id number] Note* Care Coordination - Natacha Deluna RN - 10/16/2022 11:52 AM EDT Did update patient that had spoken with Ventura at Dr. Basilio's office and she is working on prior authorization for additional refills of his xarelto. Patient acknowledges verbal understanding. Still complaining of pain. Did update primary care nurse at time of visit and also wanting to speak withphysician regarding results of ultrasound. Did update nurse of this. Was evaluated by therapist [facility] independently with no assistive devices required. [facility] HospitalErfuaw11-93-6995 Note* Care Coordination - Natacha Deluna RN - 10/16/2022 6:45 AM EDT Images from the original note were not included. Care Management Progress Note Spoke with [facility] yesterday afternoon. They are unable to obtain PA for med due to patient not being cardiology patient. Did call and speak with Ventura at Dr. Basilio's office. She will submit for PA for patient's remaining refills of xarelto. She will notify patient if med not approved and discuss with Dr. Basilio alternative OACs. Will place this information on AVS for patient. Patient complaining of blurred vision/EARLY yesterday afternoon. Stat CT scan obtained and negative.Repeat left lower extremity US yesterday. Pt/ot evals are ordered and pending. Has not required iv pain medication in last 24 hours. Pain scores 3-7. Tentative discharge home vs home with [facility] when medically stable. Will monitor therapy evals for equipment and therapy needs at discharge. Discharge Milestones and Delays Expected Date/Time: 10/15/[address] discharge order Complete med reconciliation Case mgmt discharge readiness Clinical Stability Diagnsotic Workup Expected Discharge History Expected Date/Time Set By Reviewed At 10/15/2022 LEIGH Goldstein 10/15/2022 9:55 AM 10/14/2022 Natacha Frankel DO 10/12/2022 10:32 PM 10/14/2022 Natacha Frankel DO 10/12/2022 9:10 PM Length of Stay (Days): 4 GMLOS: 3.0 . [facility] [id number] Note* Care Coordination - Natacha Deluna RN - 10/16/2022 6:45 AM EDT Images from the original note were not included. Care Management Progress Note Spoke with [facility] yesterday afternoon. They are unable to obtain PA for med due to patient not being cardiology patient. Did call and speak with Ventura at Dr. Basilio's office. She will submit for PA for patient's remaining refills of xarelto. She will notify patient if med not approved and discuss with Dr. Basilio alternative OACs. Will place this information on AVS for patient. Patient complaining of blurred vision/EARLY yesterday afternoon. Stat CT scan obtained and negative.Repeat left lower extremity US yesterday. Pt/ot evals are ordered and pending. Has not required iv pain medication in last 24 hours. Pain scores 3-7. Tentative discharge home vs home with [facility] when medically stable. Will monitor therapy evals for equipment and therapy needs at discharge. Discharge Milestones and Delays Expected Date/Time: 10/15/[address] discharge order Complete med reconciliation Case mgmt discharge readiness Clinical Stability Diagnsotic Workup Expected Discharge History Expected Date/Time Set By Reviewed At 10/15/2022 LEIGH Goldstein 10/15/2022 9:55 AM 10/14/2022 Natacha Frankel DO 10/12/2022 10:32 PM 10/14/2022 Natacha Frankel DO 10/12/2022 9:10 PM Length of Stay (Days): 4 GMLOS: 3.0 . [facility] [id number] History of Present illness Narrative* Anel Rubin LPN - 10/15/2022 10:31 PM EDT Chart reviewed of ED follow up Seen in [facility] ED on 10/12/22 Reason: leg pain Discharge instructions: Asked Dr. Perales about renewing your anticoagulation medicine and how long you will need to be on the medicine. PATIENT REFERRED TO: Lake Perales MD [address] [facility] [facility] [address] In 1 week [facility] Telemetryfor complaint of leg pain. Admitting DX was acute deep vein thrombosis of left lower extremity and ambulatory dysfunction.. * Anel Rubin LPN - 10/15/2022 10:31 PM EDT Was notified per Dr. Burce office that patient no longer follows Dr. Perales, he follows Dr. Cheryl Basilio. documented in this [facility]08-21-2023 Note* Care Coordination - LEIGH Goldstein - 10/15/2022 3:19 PM EDT S/W, follow up TCC did message that Dr. Gray office will do the prior auth on Xarelto. [facility] HospitalKuevtl26-83-1734 Note* Care Coordination - LEIGH Goldstein - 10/15/2022 3:19 PM EDT S/W, follow up TCC did message that Dr. Gray office will do the prior auth on Xarelto. [facility] [id number] Note* Rapid Response Note - Danelle Louis RN - 10/15/2022 12:56 PM EDT Rapid Response Reason Rapid Response Reason Rapid Response Notification Reason(s): Other (comment) (blurred vision/headache like I have a headrush from taking pain medication. Onset 12:24. Glucose check 98. Pt taking lovenox for a left leg DVT) Vitals Vital Signs Resp: 16 Review of Systems: Neurological R Pupil Size (mm): 3 R Pupil Reaction: Brisk L Pupil Size (mm): 3 L Pupil Reaction: Brisk NIH= 0 see flowsheet from 12:36 Provider Notifications Provider Notification Reason for Communication: Evaluate Provider Name: Dr Reyes Provider Role: Attending physician Method of Communication: Face to face Response: In department Notification Time: 1245 Anaphylaxis Assessment Chest Pain Assessment: Epistaxis Assessment: Extravasation Assessment: Fall Assessment Patient Disposition Patient Disposition Patient Disposition: Continue monitoring at current level of care Pt eval by Dr eRyes, pt taking lovenox. Dr Reyes orders a head CT [facility] [id number] Note* Rapid Response Note - Danelle Louis RN - 10/15/2022 12:56 PM EDT Rapid Response Reason Rapid Response Reason Rapid Response Notification Reason(s): Other (comment) (blurred vision/headache like I have a headrush from taking pain medication. Onset 12:24. Glucose check 98. Pt taking lovenox for a left leg DVT) Vitals Vital Signs Resp: 16 Review of Systems: Neurological R Pupil Size (mm): 3 R Pupil Reaction: Brisk L Pupil Size (mm): 3 L Pupil Reaction: Brisk NIH= 0 see flowsheet from 12:36 Provider Notifications Provider Notification Reason for Communication: Evaluate Provider Name: Dr Reyes Provider Role: Attending physician Method of Communication: Face to face Response: In department Notification Time: 1245 Anaphylaxis Assessment Chest Pain Assessment: Epistaxis Assessment: Extravasation Assessment: Fall Assessment Patient Disposition Patient Disposition Patient Disposition: Continue monitoring at current level of care Pt eval by Dr Reyes, pt taking lovenox. Dr Reyes orders a head CT [facility] [id number] Note* Care Coordination - Natacha Deluna RN - 10/15/2022 12:34 PM EDT Did call and speak with Xiomara from [facility] and requested that PA be initiated onxarelto. She will contact [facility] once obtained. Updated attending of this. [facility] [id number] Note* Care Coordination - Natacha Deluna RN - 10/15/2022 12:34 PM EDT Did call and speak with Xiomara from [facility] and requested that PA be initiated onxarelto. She will contact [facility] once obtained. Updated attending of this. [place] [id number] Note* Care Coordination - Natacha Deluna RN - 10/15/2022 9:34 AM EDT Per meds to beds xarelto will require PA [phone]. [facility] [id number] Note* Care Coordination - Natacha Deluna RN - 10/15/2022 9:34 AM EDT Per meds to beds xarelto will require PA [phone]. [facility] [id number] Note* Care Coordination - Natacha Deluna RN - 10/15/2022 6:33 AM EDT Images from the original note were not included. Care Management Progress Note Family picked up first 30 days worth of xarelto from [facility](free with coupon). Awaiting call from meds to beds today with monthly cost for medication and to determine if it requires PA. Seen by hematology. Okay to transition to oral OAC. Remains on subcutaneous lovenox. On po percocet and iv dilaudid for pain. Discharge plan home when medically stable. Will update attending once confirmation of copay of OAC received from meds to beds. .Electronically signed by Natacha Deluna RN on10/15/2022 at 6:39 AM Discharge Milestones and Delays Expected Date/Time: 10/14/[address] discharge order Complete med reconciliation Case mgmt discharge readiness Clinical Stability Diagnsotic Workup Expected Discharge History Expected Date/Time Set By Reviewed At 10/14/2022 Natacha Frankel, DO 10/12/2022 10:32 PM 10/14/2022 Natacha Frankel, DO 10/12/2022 9:10 PM Length of Stay (Days): 3 GMLOS: No GMLOS Documented [facility] [id number] Note* Care Coordination - Natacha Deluna RN - 10/15/2022 6:33 AM EDT Images from the original note were not included. Care Management Progress Note Family picked up first 30 days worth of xarelto from [facility](free with coupon). Awaiting call from meds to beds today with monthly cost for medication and to determine if it requires PA. Seen by hematology. Okay to transition to oral OAC. Remains on subcutaneous lovenox. On po percocet and iv dilaudid for pain. Discharge plan home when medically stable. Will update attending once confirmation of copay of OAC received from meds to beds. .Electronically signed by Natacha Deluna RN on10/15/2022 at 6:39 AM Discharge Milestones and Delays Expected Date/Time: 10/14/[address] discharge order Complete med reconciliation Case mgmt discharge readiness Clinical Stability Diagnsotic Workup Expected Discharge History Expected Date/Time Set By Reviewed At 10/14/2022 Natacha Frankel, 10/12/2022 10:32 PM 10/14/2022 Natacha Frankel, DO 10/12/2022 9:10 PM Length of Stay (Days): 3 GMLOS: No GMLOS Documented [facility] [id number] Note* Care Coordination - Natacha Deluna RN - 10/14/2022 4:53 PM EDT Did [place] chat Dr. Reyes regarding xarelto script sent from ER only being for 10 day supply. He sent over new script for 30 day supply to [facility]. Called and spoke with pharmacist at [facility] and 30 day script has already been picked up by patient's brother in law and 10 day script was cancelled. Patient did not accrue any charge for his 30 day script. . [id number] Note* Care Coordination - Natacha Deluna RN - 10/14/2022 4:53 PM EDT Did epic chat Dr. Reyes regarding xarelto script sent from ER only being for 10 day supply. He sent over new script for 30 day supply to [facility]. Called and spoke with pharmacist at [facility] and 30 day script has already been picked up by patient's brother in law and 10 day script was cancelled. Patient did not accrue any charge for his 30 day script. . [address] [id number] Plan of care note* Care Plan - Angela Harris RN - 10/14/2022 3:40 PM EDT The patient is Moderately Stable - Low risk of patient condition declining or worsening The patient's goals for the shift include go to bathoroom The clinical goals for the shift include relieve constipation Barriers to progression during shift include inability to make bowl movement. Patient is till regularly taking pain medication . Bowel regimen escalated. Senna BID added, given PRN milk of magnesium,suppository and miralax without sufficient movement . Recommendations to address these barriers include continue bowel regimen, increase time between pain medication ( could consider non opioid modalities), lite fare diet, and increase ambulation as tolerate. Patient given warm prune juice. [facility] [id number] Consult note* Juan José Obando MD - 10/14/2022 10:55 AM EDT Images from the original note were not included. Juan José Cooper MD [facility] Hematology/Oncology - [facility] [address] [facility] [address] [place] [id number] Dept: [phone] Dept PROBLEM LIST: 1.LLE DVT (provoked) -10/12/22 duplex = DVT throughout LLE including common femoral vein ASSESSMENT AND PLAN: Jaylen Queen is a 62 y.o. male here for 1. Left lower extremity DVT: I have reviewed the entire case including the imaging studies as well as recent labs. The patient has what seems to be a clearly provoked DVT. However, the patient reports family history of thrombosis. I would recommend continuing a course of anticoagulation for a finite period. While 3 months may be sufficient, I would tend toward 6 months due to the extent of the thrombosis. There may be a rolefor hypercoagulable testing here to risk stratify him (and inform the role for prophylactic anticoagulation in high risk situations such as prolonged immobilization/travel or surgery) and prevent future VTE and associated morbidity. -no role for inpatient hypercoag testing however (can be dicussed as outpatient) -With the patient's report of worsening left leg pain and swelling, I would repeat an ultrasound and also consult vascular surgery for input -defer to primary team for anticoagulation (home-going Xarelto or Eliquis would be appropriate) -relayed findings to Dr Reyes and relayed above to the RN at bedside today -Follow-up with hematology in 3 months to discuss next steps (hypecoag testing, duration, etc). Pt requests to be seen at [facility] so I have our office arrange for f/u visit 2. Hypercalcemia PTH = wnl Today Ca level = WNL Agree w/ screening CT chest HPI: Jaylen Queen is a 62 y.o. male who presents here today with Patient with a past medical history of BPH, chronic kidney disease stage II with a baseline creatinine of 1.2-1.3, dyslipidemia, fatty liver who presents on this admission to the emergency room on October 12, 2022 with leg pain. Of note, the patient was diagnosed with a DVT at [place] emergency room and sent home with [employer]. However he cannot afford the co-pay and went back to the emergency room at [place] before beingadmitted to [place]. Also of note, the patient was admitted from September 17 through September 23, 2022 with multidrug-resistant UTI/right pyelonephritis. He was prescribed a course of IV antibiotics to be completed on September 26, [address] to [place] and back , returning just about 1 week ago. Pain of LE started 3 days after arriving back home. The patient is adopted, however, he has knowledge of family history of thrombosis in his biologicalfamily (sisters x2 w/ hx of VTE) The patient expresses frustration because of ongoing leg pain. He reports that his inner thigh is more swollen in the last day. Past Medical History: Diagnosis Date Abscess of scrotum 09/15/2020 Last Assessment & Plan: Urology office was contacted and I spoke to the nurse practitioner Farzana and she was going to see if they could rearrange some schedules to get him in [place]. She was going to call and talk with Jaylen. 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 NSR Troponin negative. Echocardiogram EF 69, no significant valvular disease. Recommend cardiology as outpatient for further workup- likely stress test. - patient d eclining. 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 Tobacco use disorder Unspecified hearing loss Unspecified hypothyroidism Past Surgical History: Procedure Laterality Date CHOLECYSTECTOMY COLONOSCOPY KNEE SURGERY Right SMALL INTESTINE SURGERY TONSILLECTOMY (HISTORICAL) No current facility-administered medications on file prior to encounter. Current Outpatient Medications on File Prior to Encounter Medication Sig Dispense Refill cabergoline (Dostinex) 0.5 MG tablet take 1 1/2 tablet by mouth ON SATURDAY AND SATURDAY 36 tablet 1 fenofibrate (Triglide) 160 MG tablet take 1 tablet by mouth once daily 90 tablet 1 levothyroxine (Synthroid, Levoxyl) 100 MCG tablet Take 1 tablet (100 mcg) by mouth daily. 90 tablet1 niacin (Niaspan) 1000 MG ER tablet Take 1 tablet (1,000 mg) by mouth daily. 90 tablet 1 oxyCODONE-acetaminophen (Percocet) 5-325 MG tablet Take 1 tablet by mouth every 6 hours as needed for severe pain (7-10) for up to 5 days. 15 tablet 0 rivaroxaban (Xarelto) 20 MG tablet Take 1 tablet (20 mg) by mouth with evening meal for 10 days. Take with food. 10 tablet 0 rosuvastatin (Crestor) 10 MG tablet Take 1 tablet (10 mg) by mouth daily. 90 tablet 1 tadalafil (Cialis) 5 MG tablet Take 1 tablet (5 mg) by mouth daily. 90 tablet 1 tamsulosin (Flomax) 0.4 MG 24 hr capsule Take 1 capsule (0.4 mg) by mouth daily. Do not start before September 24, 2022. 30 capsule 2 [DISCONTINUED] tadalafil (Cialis) 20 MG tablet Take 1 tablet (20 mg) by mouth Daily as needed for erectile dysfunction. 14 tablet 3 enoxaparin, 1 mg/kg, SubCUTAneous, q12h fenofibrate, 160 mg, Oral, Daily levothyroxine, 100 mcg, Oral, Daily pantoprazole, 40 mg, Oral, qAM AC rosuvastatin, 10 mg, Oral, Daily tamsulosin, 0.4 mg, Oral, Daily PRN medications: acetaminophen OR acetaminophen, Melatonin OR traZODone OR diphenhydrAMINE, HYDROmorphone, ondansetron ODT OR ondansetron, oxyCODONE-acetaminophen, polyethylene glycol(PEG) 3350 Social History Socioeconomic History Marital status: Spouse name: Not on file Number of children: Not on file Years of education: Not on file Highest education level: Not on file Occupational History Not on file Tobacco Use Smoking status: Some Days Packs/day: 0.25 Types: Cigarettes Last attempt to quit: 03/2022 Years since quittin.5 Smokeless tobacco: Never Substance and Sexual Activity Alcohol use: Yes Drug use: Yes Types: Marijuana Sexual activity: Not on file Other Topics Concern Not on file Social History Narrative Not on file Social Determinants of Health Financial Resource Strain: Low Risk (02/06/2022) Overall Financial Resource Strain (CARDIA) Difficulty of Paying Living Expenses: Not hard at all Food Insecurity: No Food Insecurity (02/06/2022) Hunger Vital Sign Worried About Running Out of Food in the Last Year: Never true Ran Out of Food in the Last Year: Never true Transportation Needs: No Transportation Needs (10/12/2022) PRAPARE - Transportation Lack of Transportation (Medical): No Lack of Transportation (Non-Medical): No Physical Activity: Not on file Stress: Not on file Social Connections: Not on file Intimate Partner Violence: Not At Risk (10/12/2022) Humiliation, Afraid, Rape, and Kick questionnaire Fear of Current or Ex-Partner: No Emotionally Abused: No Physically Abused: No Sexually Abused: No Housing Stability: Unknown (10/12/2022) Housing Stability Vital Sign Unable to Pay for Housing in the Last Year: No Number of Places Lived in the Last Year: Not on file Unstable Housing in the Last Year: No Family History Adopted: Yes Problem Relation Name Age of Onset No Known Problems Father Cancer Mother lung Allergies Allergen Reactions Meperidine Nausea And Vomiting Mara Reviewed medications, allergies, past medical history, social history, family history as above. 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 No apparent distress. LYMPH: No cervical, axillary supraclav LAD SKIN: No rashes, no erythema LE: Mild upper inner thigh swelling (no erythema). PYSCH: AAOx3. Mood and affect appropriate, patient interactive Labs Most recent labs reviewed Lab Results Component Value Date NA 138 10/14/2022 K 4.4 10/14/2022 CL 105 10/14/2022 CO2 26 10/14/2022 BUN 17 10/14/2022 CREATININE 1.15 10/14/2022 GLUCOSE 90 10/14/2022 CALCIUM 9.9 10/14/2022 PROT 6.4 10/14/2022 BILITOT 0.4 10/14/2022 ALKPHOS 53 10/14/2022 AST 18 10/14/2022 ALT 11 10/14/2022 Lab Results Component Value Date WBC 8.2 10/14/2022 HGB 12.7 (L) 10/14/2022 HCT 37.0 (L) 10/14/2022 MCV 90.9 10/14/2022 PLT 255 10/14/2022 LABLYMP 23 12/05/2021 LYMPHOPCT 26.2 10/14/2022 GRANULOCYTES 46.2 12/12/2021 RBC 4.08 (L) 10/14/2022 MCH 31.2 10/14/2022 MCHC 34.3 10/14/2022 RDW 13.4 10/14/2022 Radiology reviewed: 10/12/2022 LE duplex LEFT LOWER EXTREMITY VENOUS DUPLEX ULTRASOUND CLINICAL HISTORY: Leg pain Grayscale and color Doppler sonographic images of the left lower extremity were obtained. Comparisons available: None. FINDINGS: There is thrombus throughout the common femoral, femoral, popliteal, and calf veins in the left lower extremity. The vessels are noncompressible with no color flow on Doppler imaging. The right common femoral vein is normally compressible. IMPRESSION: Positive for DVT throughout the left lower extremity. These findings were discussed with physician/provider PACHECO NEGRON by Secure Chat on 10/12/2022 at 3:16 PM EDT. Pathology Reviewed: Juan José Cooper MD Disclaimer: This note was dictated by speech recognition and may contain minor errors in sports marketing specialist. Attending Attestation Note: I have personally performed a face to face diagnostic evaluation on this patient on 10/14/22 . I spent the 75 min visit with patient , discussing case w/ primary MD, counseling patient/documenting and coordinating care regarding diagnosis, workup/testing, treatment as well as answering questions. Juan José Cooper MD [facility] Phone: [phone] 304-162008-20-2023 Consult note* Juan José Obando MD - 10/14/2022 10:55 AM EDT Images from the original note were not included. Juan José Cooper MD [facility] Hematology/Oncology - [facility] [address] [facility] [address] [place] [id number] Dept: [phone] Dept PROBLEM LIST: 1.LLE DVT (provoked) -10/12/22 duplex = DVT throughout LLE including common femoral vein ASSESSMENT AND PLAN: Jaylen Queen is a 62 y.o. male here for 1. Left lower extremity DVT: I have reviewed the entire case including the imaging studies as well as recent labs. The patient has what seems to be a clearly provoked DVT. However, the patient reports family history of thrombosis. I would recommend continuing a course of anticoagulation for a finite period. While 3 months may be sufficient, I would tend toward 6 months due to the extent of the thrombosis. There may be a rolefor hypercoagulable testing here to risk stratify him (and inform the role for prophylactic anticoagulation in high risk situations such as prolonged immobilization/travel or surgery) and prevent future VTE and associated morbidity. -no role for inpatient hypercoag testing however (can be dicussed as outpatient) -With the patient's report of worsening left leg pain and swelling, I would repeat an ultrasound and also consult vascular surgery for input -defer to primary team for anticoagulation (home-going Xarelto or Eliquis would be appropriate) -relayed findings to Dr Reyes and relayed above to the RN at bedside today -Follow-up with hematology in 3 months to discuss next steps (hypecoag testing, duration, etc). Pt requests to be seen at [facility] so I have our office arrange for f/u visit 2. Hypercalcemia PTH = wnl Today Ca level = WNL Agree w/ screening CT chest HPI: Jaylen Queen is a 62 y.o. male who presents here today with Patient with a past medical history of BPH, chronic kidney disease stage II with a baseline creatinine of 1.2-1.3, dyslipidemia, fatty liver who presents on this admission to the emergency room on October 12, 2022 with leg pain. Of note, the patient was diagnosed with a DVT at [place] emergency room and sent home with [employer]. However he cannot afford the co-pay and went back to the emergency room at [place] before beingadmitted to [place]. Also of note, the patient was admitted from September 17 through September 23, 2022 with multidrug-resistant UTI/right pyelonephritis. He was prescribed a course of IV antibiotics to be completed on September 26, [address] to [place] and back , returning just about 1 week ago. Pain of LE started 3 days after arriving back home. The patient is adopted, however, he has knowledge of family history of thrombosis in his biologicalfamily (sisters x2 w/ hx of VTE) The patient expresses frustration because of ongoing leg pain. He reports that his inner thigh is more swollen in the last day. Past Medical History: Diagnosis Date Abscess of scrotum 09/15/2020 Last Assessment & Plan: Urology office was contacted and I spoke to the nurse practitioner Farzana and she was going to see if they could rearrange some schedules to get him in [place]. She was going to call and talk with Jaylne. 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 NSR Troponin negative. Echocardiogram EF 69, no significant valvular disease. Recommend cardiology as outpatient for further workup- likely stress test. - patient d eclining. 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 Tobacco use disorder Unspecified hearing loss Unspecified hypothyroidism Past Surgical History: Procedure Laterality Date CHOLECYSTECTOMY COLONOSCOPY KNEE SURGERY Right SMALL INTESTINE SURGERY TONSILLECTOMY (HISTORICAL) No current facility-administered medications on file prior to encounter. Current Outpatient Medications on File Prior to Encounter Medication Sig Dispense Refill cabergoline (Dostinex) 0.5 MG tablet take 1 1/2 tablet by mouth ON SATURDAY AND SATURDAY 36 tablet 1 fenofibrate (Triglide) 160 MG tablet take 1 tablet by mouth once daily 90 tablet 1 levothyroxine (Synthroid, Levoxyl) 100 MCG tablet Take 1 tablet (100 mcg) by mouth daily. 90 tablet1 niacin (Niaspan) 1000 MG ER tablet Take 1 tablet (1,000 mg) by mouth daily. 90 tablet 1 oxyCODONE-acetaminophen (Percocet) 5-325 MG tablet Take 1 tablet by mouth every 6 hours as needed for severe pain (7-10) for up to 5 days. 15 tablet 0 rivaroxaban (Xarelto) 20 MG tablet Take 1 tablet (20 mg) by mouth with evening meal for 10 days. Take with food. 10 tablet 0 rosuvastatin (Crestor) 10 MG tablet Take 1 tablet (10 mg) by mouth daily. 90 tablet 1 tadalafil (Cialis) 5 MG tablet Take 1 tablet (5 mg) by mouth daily. 90 tablet 1 tamsulosin (Flomax) 0.4 MG 24 hr capsule Take 1 capsule (0.4 mg) by mouth daily. Do not start before September 24, 2022. 30 capsule 2 [DISCONTINUED] tadalafil (Cialis) 20 MG tablet Take 1 tablet (20 mg) by mouth Daily as needed for erectile dysfunction. 14 tablet 3 enoxaparin, 1 mg/kg, SubCUTAneous, q12h fenofibrate, 160 mg, Oral, Daily levothyroxine, 100 mcg, Oral, Daily pantoprazole, 40 mg, Oral, qAM AC rosuvastatin, 10 mg, Oral, Daily tamsulosin, 0.4 mg, Oral, Daily PRN medications: acetaminophen OR acetaminophen, Melatonin OR traZODone OR diphenhydrAMINE, HYDROmorphone, ondansetron ODT OR ondansetron, oxyCODONE-acetaminophen, polyethylene glycol(PEG) 3350 Social History Socioeconomic History Marital status: Spouse name: Not on file Number of children: Not on file Years of education: Not on file Highest education level: Not on file Occupational History Not on file Tobacco Use Smoking status: Some Days Packs/day: 0.25 Types: Cigarettes Last attempt to quit: 03/2022 Years since quittin.5 Smokeless tobacco: Never Substance and Sexual Activity Alcohol use: Yes Drug use: Yes Types: Marijuana Sexual activity: Not on file Other Topics Concern Not on file Social History Narrative Not on file Social Determinants of Health Financial Resource Strain: Low Risk (02/06/2022) Overall Financial Resource Strain (CARDIA) Difficulty of Paying Living Expenses: Not hard at all Food Insecurity: No Food Insecurity (02/06/2022) Hunger Vital Sign Worried About Running Out of Food in the Last Year: Never true Ran Out of Food in the Last Year: Never true Transportation Needs: No Transportation Needs (10/12/2022) PRAPARE - Transportation Lack of Transportation (Medical): No Lack of Transportation (Non-Medical): No Physical Activity: Not on file Stress: Not on file Social Connections: Not on file Intimate Partner Violence: Not At Risk (10/12/2022) Humiliation, Afraid, Rape, and Kick questionnaire Fear of Current or Ex-Partner: No Emotionally Abused: No Physically Abused: No Sexually Abused: No Housing Stability: Unknown (10/12/2022) Housing Stability Vital Sign Unable to Pay for Housing in the Last Year: No Number of Places Lived in the Last Year: Not on file Unstable Housing in the Last Year: No Family History Adopted: Yes Problem Relation Name Age of Onset No Known Problems Father Cancer Mother lung Allergies Allergen Reactions Meperidine Nausea And Vomiting Mara Reviewed medications, allergies, past medical history, social history, family history as above. 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 No apparent distress. LYMPH: No cervical, axillary supraclav LAD SKIN: No rashes, no erythema LE: Mild upper inner thigh swelling (no erythema). PYSCH: AAOx3. Mood and affect appropriate, patient interactive Labs Most recent labs reviewed Lab Results Component Value Date NA 138 10/14/2022 K 4.4 10/14/2022 CL 105 10/14/2022 CO2 26 10/14/2022 BUN 17 10/14/2022 CREATININE 1.15 10/14/2022 GLUCOSE 90 10/14/2022 CALCIUM 9.9 10/14/2022 PROT 6.4 10/14/2022 BILITOT 0.4 10/14/2022 ALKPHOS 53 10/14/2022 AST 18 10/14/2022 ALT 11 10/14/2022 Lab Results Component Value Date WBC 8.2 10/14/2022 HGB 12.7 (L) 10/14/2022 HCT 37.0 (L) 10/14/2022 MCV 90.9 10/14/2022 PLT 255 10/14/2022 LABLYMP 23 12/05/2021 LYMPHOPCT 26.2 10/14/2022 GRANULOCYTES 46.2 12/12/2021 RBC 4.08 (L) 10/14/2022 MCH 31.2 10/14/2022 MCHC 34.3 10/14/2022 RDW 13.4 10/14/2022 Radiology reviewed: 10/12/2022 LE duplex LEFT LOWER EXTREMITY VENOUS DUPLEX ULTRASOUND CLINICAL HISTORY: Leg pain Grayscale and color Doppler sonographic images of the left lower extremity were obtained. Comparisons available: None. FINDINGS: There is thrombus throughout the common femoral, femoral, popliteal, and calf veins in the left lower extremity. The vessels are noncompressible with no color flow on Doppler imaging. The right common femoral vein is normally compressible. IMPRESSION: Positive for DVT throughout the left lower extremity. These findings were discussed with physician/provider PACHECO NEGRON by Secure Chat on 10/12/2022 at 3:16 PM EDT. Pathology Reviewed: Juan José Cooper MD Disclaimer: This note was dictated by speech recognition and may contain minor errors in sports marketing specialist. Attending Attestation Note: I have personally performed a face to face diagnostic evaluation on this patient on 10/14/22 . I spent the 75 min visit with patient , discussing case w/ primary MD, counseling patient/documenting and coordinating care regarding diagnosis, workup/testing, treatment as well as answering questions. Juan José Cooper MD documented in this encounterSProtestant Deaconess [id number] Plan of care note* Care Plan - Angela Harris RN - 10/13/2022 4:57 PM EDT The patient is Moderately Stable - Low risk of patient condition declining or worsening The patient's goals for the shift include pain control The clinical goals for the shift include pain control Over the shift, the patient made progress towards goal of pain control. Attempting to increase ambulation as tolerated , walking in the halls with assistance. While walking, LLE becomes dusky and pain increases in medial side if upper left thigh. After rest , color and pain improves. [facility] [id number] Note* Care Coordination - Natacha Deluna RN - 10/13/2022 3:56 PM EDT Called [facility] aid in [place]. Xarelto script does require PA. Had pharmacist run without insurance and only use FREE 30 day copay card and was able to go through with no cost. Returned to patient's room. Met with he and his daughter Isa. Apologized for earlier misunderstanding. Explained thathad spoken to chet lowry in [place] and his xarelto had gone through with no charge. Did provide with $10 month copay card and explained use. Explained would have meds to beds check cost on additional doses of xarelto and with coupon card he would only need to pay $10 month and coupon covers up to $3400 per year. Second script for xarelto may not require PA due to dosing differences with DVT and either hospital would be able to do it prior to dc or pcp's office does. He does follow with Dr. Basilio's office. Message sent to meds to beds to check Saturday. Did discuss home going needs. States lives alone. Does have cane he can use if needed. Denies anticipating any needs at this time upon discharge. Did provide with [facility] contact information. Patient and daughter requesting to speak with intelligence group supervisor about separate incident. [employer] updated. Discharge plan is home when medically stable. [facility] [id number] Note* Care Coordination - Natacha Deluna RN - 10/13/2022 3:56 PM EDT Called chet lowry in [place]. Xarelto script does require PA. Had pharmacist run without insurance and only use FREE 30 day copay card and was able to go through with no cost. Returned to patient's room. Met with he and his daughter Isa. Apologized for earlier misunderstanding. Explained thathad spoken to chet [employer] in [place] and his xarelto had gone through with no charge. Did provide with $10 month copay card and explained use. Explained would have meds to beds check cost on additional doses of xarelto and with coupon card he would only need to pay $10 month and coupon covers up to $3400 per year. Second script for xarelto may not require PA due to dosing differences with DVT and either hospital would be able to do it prior to dc or pcp's office does. He does follow with Dr. Basilio's office. Message sent to meds to beds to check Saturday. Did discuss home going needs. States lives alone. Does have cane he can use if needed. Denies anticipating any needs at this time upon discharge. Did provide with TCC contact information. Patient and daughter requesting to speak with intelligence group supervisor about separate incident. [employer] updated. Discharge plan is home when medically stable. [id number]* Care Coordination - Natacha Deluna RN - 10/13/2022 3:50 PM EDT Care Managment Initial Assessment Date: 10/13/2022 Patient Name: Jaylen Queen : 1960 Patient Information Source of Information: Patient Name/Contact Information: ISA HENSLEY [phone] DAUGHTER MAURY QUEEN DAUGHTER [phone] Cognition/Language: WFL - Within Functional Limits Permission given to speak with patient paper sales representative/caregiver as indicated: Yes Confirmation of Payer with patient/family: Yes Payer Name: MMO [place]: No Confirmation of Primary Care Physician: Confirmed PCP Name: DR. BASILIO Seen in last 2 years?: Yes Primary Caregiver: Self If assistance needed, confirmed caregiver ready, willing and able to care for patient at discharge:Yes Confirmed with: DAUGHTERS Living Arrangements Current Residence: House Number of Floors 1 Number of Entry Steps: 2 Bed/Bath Levels: Both first floor Facility: Facility Name: [facility] Plan to Return: Yes Lives with: Alone Support Systems: Children Activities of Daily Living Ambulation: Independent Bathing/Dressing: Independent Elimination/Continence/Toileting: Independent Feeding: Independent Who Assists with Activities of Daily Living: NA Instrumental Activities of Daily Living Prescription Coverage: Yes [facility]acy Used: [facility] Medication Management: Independent Transportation/Shopping: Independent Transportation Mode: Car Needs Assistance with Transportation at Discharge: No (DAUGHTER ABLE TO TRANSPORT) Meal Preparation: Independent Laundry/Cleaning: Independent Finances/Bill Paying: Independent Communication: Independent Types of Care Services/Equipment Utilized Care Services: Dialysis Type: NA Durable Medical Equipment: Shower Seat, Cane Patient's Goal/Discharge Plan Patient expects to be discharged to: HOME Discharge Planning Actions: Continue to follow Patient's Choice Rights and [employer] and Collaborative Relationships Disclosed as Indicated for Post-Acute Care: NA Interdisciplinary Team Engagement: Social Work Referral for: Additional Informational. Admitted from home with DVT. Admitted to medical hematology consulted. Daily labs. Spoke with attending via [employer] chat and wanted to know costs of OAC for patient due to patient being commercial coverage he is able to receive both eliquis and xarelto for free. Attending indicated he was going to discharge on xarelto. Entered patients room to provide with xarelto coupons. Told wanted to give him these before he was discharged and attempted to explain. Patient became angry and stated we were no different here from [facility] and he wanted to speak with the doctor. He threw off his blankets and stated he was out of here. Did update primary care nurse and attending... Natacha Deluna RN [id number]* Care Coordination - Natacha Deluna RN - 10/13/2022 3:50 PM EDT Care Managment Initial Assessment Date: 10/13/2022 Patient Name: Jaylen Queen : 1960 Patient Information Source of Information: Patient Name/Contact Information: ISA HENSLEY [phone] DAUGHTER MAURY QUEEN DAUGHTER [phone] Cognition/Language: WFL - Within Functional Limits Permission given to speak with patient paper sales representative/caregiver as indicated: Yes Confirmation of Payer with patient/family: Yes Payer Name: MMO : No Confirmation of Primary Care Physician: Confirmed PCP Name: DR. BASILIO Seen in last 2 years?: Yes Primary Caregiver: Self If assistance needed, confirmed caregiver ready, willing and able to care for patient at discharge:Yes Confirmed with: DAUGHTERS Living Arrangements Current Residence: House Number of Floors 1 Number of Entry Steps: 2 Bed/Bath Levels: Both first floor Facility: Facility Name: NA Plan to Return: Yes Lives with: Alone Support Systems: Children Activities of Daily Living Ambulation: Independent Bathing/Dressing: Independent Elimination/Continence/Toileting: Independent Feeding: Independent Who Assists with Activities of Daily Living: NA Instrumental Activities of Daily Living Prescription Coverage: Yes [facility]acy Used: [facility] [place] Medication Management: Independent Transportation/Shopping: Independent Transportation Mode: Car Needs Assistance with Transportation at Discharge: No (DAUGHTER ABLE TO TRANSPORT) Meal Preparation: Independent Laundry/Cleaning: Independent Finances/Bill Paying: Independent Communication: Independent Types of Care Services/Equipment Utilized Care Services: Dialysis Type: NA Durable Medical Equipment: Shower Seat, Cane Patient's Goal/Discharge Plan Patient expects to be discharged to: HOME Discharge Planning Actions: Continue to follow Patient's Choice Rights and [employer] and Collaborative Relationships Disclosed as Indicated for Post-Acute Care: NA Interdisciplinary Team Engagement: Social Work Referral for: Additional Informational. Admitted from home with DVT. Admitted to medical hematology consulted. Daily labs. Spoke with attending via [employer] chat and wanted to know costs of OAC for patient due to patient being commercial coverage he is able to receive both eliquis and xarelto for free. Attending indicated he was going to discharge on xarelto. Entered patients room to provide with xarelto coupons. Told wanted to give him these before he was discharged and attempted to explain. Patient became angry and stated we were no different here from [facility] and he wanted to speak with the doctor. He threw off his blankets and stated he was out of here. Did update primary care nurse and attending... Natacha Deluna RN [id number] Note* Significant Event - Bhaskar Reyes MD - 10/13/2022 3:26 PM EDT Seen and examined. Chart/labs/tests reviewed. D/w pt and family at bedside and RN and CM separately. Please see H&P done by Dr Allison earlier today for complete details. [facility] [id number] Note* Significant Event - Bhaskar Reyes MD - 10/13/2022 3:26 PM EDT Seen and examined. Chart/labs/tests reviewed. D/w pt and family at bedside and RN and CM separately. Please see H&P done by Dr Keegan earlier today for complete details. [id number] History and physical note* Yared Allison MD - 10/13/2022 3:55 AM EDT Images from the original note were not included. History and Physical [facility] Jaylen Queen : 1960 AGE 62 y.o. YEARS Note Date 10/13/2022 Primary Care Physician:Lake Perales MD Current Providers as of 10/12/2022 PCP: Lake Perales MD Referring Provider: not found, starting on SatOct 12, 2022 12:00 AM Admitting Provider: Yared Allison MD, (Active) Attending Provider: Natacha Frankel DO, starting on SatOct 12, 2022 7:47 PM, ending on 2022 10:32 PM (Inactive) Attending Provider: Yared Allison MD, starting on SatOct 12, 2022 9:10 PM (Active) Registered Nurse: Jacob Barron RN, starting on SatOct 12, 2022 8:02 PM, ending on SatOct 12, 2022 10:32 PM (Inactive) Registered Nurse: Otilia Molina RN, starting on SatOct 12, 2022 10:32 PM, ending on SatOct 13, 2022 3:53 AM (Inactive) Chief Complaint: Leg Pain HPI: He reports he noticed his left leg as sore on 10/11 evening Then on 10/12 he had more pain and then had swelling from his hip down - left leg He had a hard time walking and had pain He then went to [facility] He was diagnosed with a dvt and then he was started on lovenox and then sent home on xarelto However when he went to get the prescription filled, he reports is was $300 and he could not affordto get it filled Since he could not get it filled, he had not way to treat himself and he went back to the [facility] He recently travelled to [place] and was driving for about [address] But he denies other inactivity or recent surgery. Review of Systems: General: Skin: HEENT: Cardiovascular Fever n Rashes n Difficulty chewing n Chest Pain n Chills n Sores n Appetite Loss n Chest Pressure n Fatigue n Epistaxis n Orthopnea n Sweats n Hearing loss n Palpitations n GI: Tinnitus n GERD n Vision quality n RESP: Abdominal Pain n Glasses/Contacts n : SOB/PRUITT n Nausea n Loss taste/smell n Hematuria n Cough n Vomiting n Dysuria n Productive/Sputum n Hematemesis n NEURO: Urgency n Hemoptysis n Diarrhea n Headaches n Frequency n Wheezing n Constipation n Seizures n Times at night urinating n Heamatochezia n Neuropathy n catheter present n MSK: Melena n Focal weakness n Hesitancy n Focal Numbness n Incontinence Acute joint pain n PSYCH: Dizzy/Vertigo n Redness n Depression Difficulty speaking n Heme/Lymph Swelling Left lower extremity pain and swelling Anxiety Difficulty walking Lymphadenopathy Myalgia n Ataxia Chronic joint pain n Past Medical History: Diagnosis Date Abscess of scrotum 09/15/2020 Last Assessment & Plan: Urology office was contacted and I spoke to the nurse practitioner Farzana and she was going to see if they could rearrange some schedules to get him in [place]. She was going to call and talk with Jaylen. 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 NSR Troponin negative. Echocardiogram EF 69, no significant valvular disease. Recommend cardiology as outpatient for further workup- likely stress test. - patient d eclining. 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 Tobacco use disorder Unspecified hearing loss Unspecified hypothyroidism He denies any prior strokes, heart attacks or prior blood clots Past Surgical History: Procedure Laterality Date CHOLECYSTECTOMY COLONOSCOPY KNEE SURGERY Right SMALL INTESTINE SURGERY TONSILLECTOMY (HISTORICAL) Allergies Allergen Reactions Meperidine Nausea And Vomiting Demerol Medications Prior to Admission: Current Outpatient Medications Medication Instructions cabergoline (Dostinex) 0.5 MG tablet take 1 1/2 tablet by mouth ON SATURDAY AND SATURDAY fenofibrate (Triglide) 160 MG tablet take 1 tablet by mouth once daily levothyroxine (SYNTHROID, LEVOXYL) 100 mcg, Oral, Daily niacin (NIASPAN) 1,000 mg, Oral, Daily oxyCODONE-acetaminophen (Percocet) 5-325 MG tablet 1 tablet, Oral, Every 6 hours PRN rivaroxaban (XARELTO) 20 mg, Oral, Daily with evening meal, Take with food. rosuvastatin (CRESTOR) 10 mg, Oral, Daily tadalafil (CIALIS) 5 mg, Oral, Daily tamsulosin (FLOMAX) 0.4 mg, Oral, Daily The xarelto was recently started he is not on it chronically Social History Social History Tobacco Use Smoking status: Some Days Packs/day: 0.25 Types: Cigarettes Last attempt to quit: 03/2022 Years since quittin.5 Smokeless tobacco: Never Substance Use Topics Alcohol use: Yes Family History Family History Adopted: Yes Problem Relation Name Age of Onset No Known Problems Father Cancer Mother lung Physical Exam Temp (24hrs), Av.7 C (98.1 F), Min:36.6 C (97.8 F), Max:37.1 C (98.8 F) BP (!) 152/90 (BP Location: Right arm, Patient Position: Lying) Pulse 84 Temp 37.1 C (98.8 F) (Temporal) Resp 18 SpO2 95% Pulse Ox: SpO2 Av.5 % Min: 95 % Max: 98 % Supplemental O2: General appearance: He is alert and oriented and cooperative HEENT: Normal cephalic, atraumatic without obvious deformity. Pupils equal, round, and reactive to light. Extra ocular muscles intact. Conjunctivae/corneas clear. Neck: Supple, with full range of motion. No jugular venous distention. Trachea midline. No lymphadenopathy. Respiratory: Normal respiratory effort. Clear to auscultation, bilaterally without Rales/Wheezes/Rhonchi. Cardiovascular: Regular rate and rhythm with normal S1/S2 without murmurs, rubs or gallops. Abdomen: Soft, non-tender, non-distended with normal bowel sounds. No rebound or guarding. Musculoskeletal: Left lower extremity with swelling but not much redness erythema from his left thigh down past his knee to his ankle Skin: Skin color, texture, turgor normal. No rashes or lesions. Neurologic: Neurovascularly intact without any focal sensory/motor deficits. Cranial nerves grosslyintact. Labs Admission on 10/12/2022, Discharged on 10/12/2022 Component Date Value Auto WBC 10/12/2022 9.9 RBC 10/12/2022 4.71 Hemoglobin 10/12/2022 14.6 Hematocrit 10/12/2022 43.0 MCV 10/12/2022 91.3 MCH 10/12/2022 31.0 MCHC 10/12/2022 34.0 RDW 10/12/2022 13.0 Platelets 10/12/2022 273 MPV 10/12/2022 9.0 Neutrophils Relative 10/12/2022 70.0 Lymphocytes Relative 10/12/2022 16.4 (L) Monocytes Relative 10/12/2022 9.3 Eosinophils Relative 10/12/2022 3.0 Basophils Relative 10/12/2022 0.7 Immature Grans % 10/12/2022 0.6 (H) Neutrophils Absolute 10/12/2022 6.9 Lymphocytes Absolute 10/12/2022 1.6 Monocytes Absolute 10/12/2022 0.9 (H) Eosinophils Absolute 10/12/2022 0.3 Basophils Absolute 10/12/2022 0.1 Immature Grans Absolute 10/12/2022 0.1 (H) SODIUM 10/12/2022 137 POTASSIUM 10/12/2022 4.8 CHLORIDE 10/12/2022 104 CARBON DIOXIDE 10/12/2022 21 (L) UREA NITROGEN 10/12/2022 18 CREATININE 10/12/2022 1.45 (H) GLUCOSE 10/12/2022 121 (H) CALCIUM 10/12/2022 11.1 (H) ANION GAP 10/12/2022 12 eGFR 10/12/2022 54.8 (L) CK 10/12/2022 54 LACTIC ACID 10/12/2022 1.2 Office Visit on 10/11/2022 Component Date Value COLOR 10/11/2022 YELLOW APPEARANCE 10/11/2022 CLEAR SPECIFIC GRAVITY 10/11/2022 1.016 PH 10/11/2022 7.0 GLUCOSE 10/11/2022 NEGATIVE BILIRUBIN 10/11/2022 NEGATIVE KETONES 10/11/2022 NEGATIVE OCCULT BLOOD 10/11/2022 NEGATIVE PROTEIN 10/11/2022 NEGATIVE NITRITE 10/11/2022 NEGATIVE LEUKOCYTE ESTERASE 10/11/2022 NEGATIVE WBC 10/11/2022 0-5 RBC 10/11/2022 NONE SEEN SQUAMOUS EPITHELIAL CELLS 10/11/2022 6-10 (A) BACTERIA 10/11/2022 NONE SEEN HYALINE CAST 10/11/2022 NONE SEEN Urine Culture 10/11/2022 SEE NOTE Assessment/Plan and Medical Decision Making Left lower extremity DVT This is a brand-new diagnosis for him He denies any surgery. He has had a truck trip to [place] which is [address] recently is his only precipitating factor he denies any other clotting disorders in the past He was seen at [place] ultrasound was done he was discharged on Xarelto unfortunately I think it might require preauthorization where the [id number] expense for prescription was $300 she could not get it filled At this time we will continue to cover him with Lovenox He has extensive swelling we will ask vascular surgery to see. He is not hypoxic his vital signs are stable he denies any chest pain or shortness of breath I discussed with him that he would need anticoagulation. Long-term plan will be determined likely in the future but the short-term oral anticoagulation with a DOAC or warfarin would be preferred. Case management may work with him and his current insurance formulary to see what would be the most economical DOAC for him as it could be possible that apixaban would have a much lower co-pay if not Coumadin is always an option as well At this time since he does not have chest pain hypoxemia or shortness of breath will not proceed with getting CTA of chest or echocardiogram but would reserve this in the future if needed for the symptoms History of pituitary adenoma He will need to continue his cabergoline that he takes at home ckd Creatinine about close to baseline Lab Results Component Value Date CREATININE 1.45 (H) 10/12/2022 CREATININE 1.34 (H) 09/17/2022 CREATININE 1.52 (H) 09/14/2022 CREATININE 1.16 08/29/2022 CREATININE 1.30 02/07/2022 CREATININE 1.26 (H) 12/12/2021 CREATININE 1.01 12/06/2021 CREATININE 1.26 (H) 12/05/2021 CREATININE 1.49 (H) 12/04/2021 CREATININE 1.22 12/03/2021 CREATININE 1.49 (H) 12/02/2021 CREATININE 1.34 (H) 12/01/2021 CREATININE 1.33 (H) 11/27/2021 CREATININE 1.18 11/27/2021 Hypothyroidism We will continue his levothyroxine Hyperlipidemia we will continue his fenofibrate and Crestor at home Pain control of oxycodone ordered -DVT prophylaxis: [x] Lovenox on full dose lovenox [] Heparin [] SCDs [x] Encourage ambulation [] Already on Anticoagulation [] Pharmocologic prophylaxis on hold to due risk bleed/procedure 10/13/2022 Jaylen Queen [id number] Any scheduled follow up appointments Future Appointments Date Time Provider Department Center 12/11/2022 9:20 AM Garrison Garza MD [facility] None 01/02/2023 10:40 AM Rocio Ruiz MD [facility] None 01/30/2023 10:00 AM Donna Roberts DO [facility] None 02/14/2023 7:30 AM Lake Perales MD [facility] 04/12/2023 8:00 AM Jacob Frazier MD [facility] Extended Emergency Contact Information Primary Emergency Contact: Maury Queen Mobile Relation: Child Nurse Technician needed? No Secondary Emergency Contact: Isa Jiang Mobile Relation: Other Portions of this note may be electronically transcribed. Please forward a copy of this H&P to the primary care physician. [employer] Phone: [phone] History and physical note* Yared Allison MD - 10/13/2022 3:55 AM EDT Images from the original note were not included. History and Physical [facility] Jaylen Queen : 1960 AGE 62 y.o. YEARS Note Date 10/13/2022 Primary Care Physician:Lake Perales MD Current Providers as of 10/12/2022 PCP: Lake Perales MD Referring Provider: not found, starting on SatOct 12, 2022 12:00 AM Admitting Provider: Yared Allison MD, (Active) Attending Provider: Natacha Frankel DO, starting on SatOct 12, 2022 7:47 PM, ending on 2022 10:32 PM (Inactive) Attending Provider: Yared Allison MD, starting on SatOct 12, 2022 9:10 PM (Active) Registered Nurse: Jacob Barron RN, starting on SatOct 12, 2022 8:02 PM, ending on SatOct 12, 2022 10:32 PM (Inactive) Registered Nurse: Otilia Molina RN, starting on SatOct 12, 2022 10:32 PM, ending on SatOct 13, 2022 3:53 AM (Inactive) Chief Complaint: Leg Pain HPI: He reports he noticed his left leg as sore on 10/11 evening Then on 10/12 he had more pain and then had swelling from his hip down - left leg He had a hard time walking and had pain He then went to [facility] He was diagnosed with a dvt and then he was started on lovenox and then sent home on xarelto However when he went to get the prescription filled, he reports is was $300 and he could not affordto get it filled Since he could not get it filled, he had not way to treat himself and he went back to the [facility] He recently travelled to [place] and was driving for about [address] But he denies other inactivity or recent surgery. Review of Systems: General: Skin: HEENT: Cardiovascular Fever n Rashes n Difficulty chewing n Chest Pain n Chills n Sores n Appetite Loss n Chest Pressure n Fatigue n Epistaxis n Orthopnea n Sweats n Hearing loss n Palpitations n GI: Tinnitus n GERD n Vision quality n RESP: Abdominal Pain n Glasses/Contacts n : SOB/PRUITT n Nausea n Loss taste/smell n Hematuria n Cough n Vomiting n Dysuria n Productive/Sputum n Hematemesis n NEURO: Urgency n Hemoptysis n Diarrhea n Headaches n Frequency n Wheezing n Constipation n Seizures n Times at night urinating n Heamatochezia n Neuropathy n catheter present n MSK: Melena n Focal weakness n Hesitancy n Focal Numbness n Incontinence Acute joint pain n PSYCH: Dizzy/Vertigo n Redness n Depression Difficulty speaking n Heme/Lymph Swelling Left lower extremity pain and swelling Anxiety Difficulty walking Lymphadenopathy Myalgia n Ataxia Chronic joint pain n Past Medical History: Diagnosis Date Abscess of scrotum 09/15/2020 Last Assessment & Plan: Urology office was contacted and I spoke to the nurse practitioner Farzana and she was going to see if they could rearrange some schedules to get him in [place]. She was going to call and talk with Jaylen. 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 NSR Troponin negative. Echocardiogram EF 69, no significant valvular disease. Recommend cardiology as outpatient for further workup- likely stress test. - patient d eclining. 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 Tobacco use disorder Unspecified hearing loss Unspecified hypothyroidism He denies any prior strokes, heart attacks or prior blood clots Past Surgical History: Procedure Laterality Date CHOLECYSTECTOMY COLONOSCOPY KNEE SURGERY Right SMALL INTESTINE SURGERY TONSILLECTOMY (HISTORICAL) Allergies Allergen Reactions Meperidine Nausea And Vomiting Demerol Medications Prior to Admission: Current Outpatient Medications Medication Instructions cabergoline (Dostinex) 0.5 MG tablet take 1 1/2 tablet by mouth ON SATURDAY AND SATURDAY fenofibrate (Triglide) 160 MG tablet take 1 tablet by mouth once daily levothyroxine (SYNTHROID, LEVOXYL) 100 mcg, Oral, Daily niacin (NIASPAN) 1,000 mg, Oral, Daily oxyCODONE-acetaminophen (Percocet) 5-325 MG tablet 1 tablet, Oral, Every 6 hours PRN rivaroxaban (XARELTO) 20 mg, Oral, Daily with evening meal, Take with food. rosuvastatin (CRESTOR) 10 mg, Oral, Daily tadalafil (CIALIS) 5 mg, Oral, Daily tamsulosin (FLOMAX) 0.4 mg, Oral, Daily The xarelto was recently started he is not on it chronically Social History Social History Tobacco Use Smoking status: Some Days Packs/day: 0.25 Types: Cigarettes Last attempt to quit: 03/2022 Years since quittin.5 Smokeless tobacco: Never Substance Use Topics Alcohol use: Yes Family History Family History Adopted: Yes Problem Relation Name Age of Onset No Known Problems Father Cancer Mother lung Physical Exam Temp (24hrs), Av.7 C (98.1 F), Min:36.6 C (97.8 F), Max:37.1 C (98.8 F) BP (!) 152/90 (BP Location: Right arm, Patient Position: Lying) Pulse 84 Temp 37.1 C (98.8 F) (Temporal) Resp 18 SpO2 95% Pulse Ox: SpO2 Av.5 % Min: 95 % Max: 98 % Supplemental O2: General appearance: He is alert and oriented and cooperative HEENT: Normal cephalic, atraumatic without obvious deformity. Pupils equal, round, and reactive to light. Extra ocular muscles intact. Conjunctivae/corneas clear. Neck: Supple, with full range of motion. No jugular venous distention. Trachea midline. No lymphadenopathy. Respiratory: Normal respiratory effort. Clear to auscultation, bilaterally without Rales/Wheezes/Rhonchi. Cardiovascular: Regular rate and rhythm with normal S1/S2 without murmurs, rubs or gallops. Abdomen: Soft, non-tender, non-distended with normal bowel sounds. No rebound or guarding. Musculoskeletal: Left lower extremity with swelling but not much redness erythema from his left thigh down past his knee to his ankle Skin: Skin color, texture, turgor normal. No rashes or lesions. Neurologic: Neurovascularly intact without any focal sensory/motor deficits. Cranial nerves grosslyintact. Labs Admission on 10/12/2022, Discharged on 10/12/2022 Component Date Value Auto WBC 10/12/2022 9.9 RBC 10/12/2022 4.71 Hemoglobin 10/12/2022 14.6 Hematocrit 10/12/2022 43.0 MCV 10/12/2022 91.3 MCH 10/12/2022 31.0 MCHC 10/12/2022 34.0 RDW 10/12/2022 13.0 Platelets 10/12/2022 273 MPV 10/12/2022 9.0 Neutrophils Relative 10/12/2022 70.0 Lymphocytes Relative 10/12/2022 16.4 (L) Monocytes Relative 10/12/2022 9.3 Eosinophils Relative 10/12/2022 3.0 Basophils Relative 10/12/2022 0.7 Immature Grans % 10/12/2022 0.6 (H) Neutrophils Absolute 10/12/2022 6.9 Lymphocytes Absolute 10/12/2022 1.6 Monocytes Absolute 10/12/2022 0.9 (H) Eosinophils Absolute 10/12/2022 0.3 Basophils Absolute 10/12/2022 0.1 Immature Grans Absolute 10/12/2022 0.1 (H) SODIUM 10/12/2022 137 POTASSIUM 10/12/2022 4.8 CHLORIDE 10/12/2022 104 CARBON DIOXIDE 10/12/2022 21 (L) UREA NITROGEN 10/12/2022 18 CREATININE 10/12/2022 1.45 (H) GLUCOSE 10/12/2022 121 (H) CALCIUM 10/12/2022 11.1 (H) ANION GAP 10/12/2022 12 eGFR 10/12/2022 54.8 (L) CK 10/12/2022 54 LACTIC ACID 10/12/2022 1.2 Office Visit on 10/11/2022 Component Date Value COLOR 10/11/2022 YELLOW APPEARANCE 10/11/2022 CLEAR SPECIFIC GRAVITY 10/11/2022 1.016 PH 10/11/2022 7.0 GLUCOSE 10/11/2022 NEGATIVE BILIRUBIN 10/11/2022 NEGATIVE KETONES 10/11/2022 NEGATIVE OCCULT BLOOD 10/11/2022 NEGATIVE PROTEIN 10/11/2022 NEGATIVE NITRITE 10/11/2022 NEGATIVE LEUKOCYTE ESTERASE 10/11/2022 NEGATIVE WBC 10/11/2022 0-5 RBC 10/11/2022 NONE SEEN SQUAMOUS EPITHELIAL CELLS 10/11/2022 6-10 (A) BACTERIA 10/11/2022 NONE SEEN HYALINE CAST 10/11/2022 NONE SEEN Urine Culture 10/11/2022 SEE NOTE Assessment/Plan and Medical Decision Making Left lower extremity DVT This is a brand-new diagnosis for him He denies any surgery. He has had a truck trip to [place] which is [address] recently is his only precipitating factor he denies any other clotting disorders in the past He was seen at [facility] ultrasound was done he was discharged on Xarelto unfortunately I think it might require preauthorization where the [id number] expense for prescription was $300 she could not get it filled At this time we will continue to cover him with Lovenox He has extensive swelling we will ask vascular surgery to see. He is not hypoxic his vital signs are stable he denies any chest pain or shortness of breath I discussed with him that he would need anticoagulation. Long-term plan will be determined likely in the future but the short-term oral anticoagulation with a DOAC or warfarin would be preferred. Case management may work with him and his current insurance formulary to see what would be the most economical DOAC for him as it could be possible that apixaban would have a much lower co-pay if not Coumadin is always an option as well At this time since he does not have chest pain hypoxemia or shortness of breath will not proceed with getting CTA of chest or echocardiogram but would reserve this in the future if needed for the symptoms History of pituitary adenoma He will need to continue his cabergoline that he takes at home ckd Creatinine about close to baseline Lab Results Component Value Date CREATININE 1.45 (H) 10/12/2022 CREATININE 1.34 (H) 09/17/2022 CREATININE 1.52 (H) 09/14/2022 CREATININE 1.16 08/29/2022 CREATININE 1.30 02/07/2022 CREATININE 1.26 (H) 12/12/2021 CREATININE 1.01 12/06/2021 CREATININE 1.26 (H) 12/05/2021 CREATININE 1.49 (H) 12/04/2021 CREATININE 1.22 12/03/2021 CREATININE 1.49 (H) 12/02/2021 CREATININE 1.34 (H) 12/01/2021 CREATININE 1.33 (H) 11/27/2021 CREATININE 1.18 11/27/2021 Hypothyroidism We will continue his levothyroxine Hyperlipidemia we will continue his fenofibrate and Crestor at home Pain control of oxycodone ordered -DVT prophylaxis: [x] Lovenox on full dose lovenox [] Heparin [] SCDs [x] Encourage ambulation [] Already on Anticoagulation [] Pharmocologic prophylaxis on hold to due risk bleed/procedure 10/13/2022 Jaylen Queen [id number] Any scheduled follow up appointments Future Appointments Date Time Provider Department Center 12/11/2022 9:20 AM Garrison Garza MD [facility] None 01/02/2023 10:40 AM Rocio Ruiz MD [facility] None 01/30/2023 10:00 AM Donna Roberts DO [facility] None 02/14/2023 7:30 AM Lake Perales MD [facility] 04/12/2023 8:00 AM Jacob Frazier MD [facility] Extended Emergency Contact Information Primary Emergency Contact: Maury Queen Mobile Relation: Child Nurse Technician needed? No Secondary Emergency Contact: Isa Jiang Mobile Relation: Other Portions of this note may be electronically transcribed. Please forward a copy of this H&P to the primary care physician. documented in this [facility]08-18-2023 Emergency department Note* Jacob Barron RN - 10/12/2022 9:40 PM EDT Pt and his daughter agreeable to transport via automobile to [facility]. Report called to [place] [phone] [address] nurse. Jacob Barron RN 10/12/222146 [id number] Note* Jacob Barron RN - 10/12/2022 9:40 PM EDT Pt and his daughter agreeable to transport via automobile to [facility]. Report called to [address] nurse[address] Jacob Barron RN 10/12/222146 * Natacha Frankel DO - 10/12/2022 7:42 PM EDT EMERGENCY DEPARTMENT ENCOUNTER Pt Name: Jaylen Queen Birthdate 1960 Date of evaluation: 10/12/2022 ED Provider: Natacha Frankel DO CHIEF COMPLAINT Chief Complaint Patient presents with Leg Pain HISTORY OF PRESENT ILLNESS (Location/Symptom, Timing/Onset, Context/Setting, Quality, Duration, Modifying Factors, Severity) Note limiting factors. I wore appropriate PPE for the entirety of this encounter. HPI Jaylen Queen is a 62 y.o. who presents to the emergency department for left leg pain. Patient wasseen earlier today for the same diagnosed with an extensive left leg DVT however was unable to get his prescribed blood thinner at the pharmacy. Additionally patient now uncomfortable going home because he cannot walk due to the pain and lives home alone. Daughter at bedside. Nursing Notes were reviewed. Limitations to history: None Outside historians: None REVIEW OF SYSTEMS Review of Systems Pertinent positives and negatives as per HPI PAST MEDICAL HISTORY Past Medical History: Diagnosis Date Abscess of scrotum 09/15/2020 Last Assessment & Plan: Urology office was contacted and I spoke to the nurse practitioner Farzana and she was going to see if they could rearrange some schedules to get him in [place]. She was going to call and talk with Jaylen. 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 NSR Troponin negative. Echocardiogram EF 69, no significant valvular disease. Recommend cardiology as outpatient for further workup- likely stress test. - patient d eclining. 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 Tobacco use disorder Unspecified hearing loss Unspecified hypothyroidism SURGICAL HISTORY Past Surgical History: Procedure Laterality Date CHOLECYSTECTOMY COLONOSCOPY KNEE SURGERY Right SMALL INTESTINE SURGERY TONSILLECTOMY (HISTORICAL) CURRENT MEDICATIONS Previous Medications CABERGOLINE (DOSTINEX) 0.5 MG TABLET take 1 1/2 tablet by mouth ON SATURDAY AND SATURDAY FENOFIBRATE (TRIGLIDE) 160 MG TABLET take 1 tablet by mouth once daily LEVOTHYROXINE (SYNTHROID, LEVOXYL) 100 MCG TABLET Take 1 tablet (100 mcg) by mouth daily. NIACIN (NIASPAN) 1000 MG ER TABLET Take 1 tablet (1,000 mg) by mouth daily. OXYCODONE-ACETAMINOPHEN (PERCOCET) 5-325 MG TABLET Take 1 tablet by mouth every 6 hours as needed for severe pain (7-10) for up to 5 days. RIVAROXABAN (XARELTO) 20 MG TABLET Take 1 tablet (20 mg) by mouth with evening meal for 10 days. Take with food. ROSUVASTATIN (CRESTOR) 10 MG TABLET Take 1 tablet (10 mg) by mouth daily. TADALAFIL (CIALIS) 5 MG TABLET Take 1 tablet (5 mg) by mouth daily. TAMSULOSIN (FLOMAX) 0.4 MG 24 HR CAPSULE Take 1 capsule (0.4 mg) by mouth daily. Do not start before September 24, 2022. ALLERGIES Meperidine FAMILY HISTORY Family History Adopted: Yes Problem Relation Name Age of Onset No Known Problems Father Cancer Mother lung SOCIAL HISTORY Social History Socioeconomic History Marital status: Tobacco Use Smoking status: Some Days Packs/day: 0.25 Types: Cigarettes Last attempt to quit: 03/2022 Years since quittin.5 Smokeless tobacco: Never Substance and Sexual Activity Alcohol use: Yes Drug use: Yes Types: Marijuana Social Determinants of Health Financial Resource Strain: Low Risk (02/06/2022) Overall Financial Resource Strain (CARDIA) Difficulty of Paying Living Expenses: Not hard at all Food Insecurity: No Food Insecurity (02/06/2022) Hunger Vital Sign Worried About Running Out of Food in the Last Year: Never true Ran Out of Food in the Last Year: Never true Transportation Needs: No Transportation Needs (02/06/2022) PRAPARE - Transportation Lack of Transportation (Medical): No Lack of Transportation (Non-Medical): No SCREENINGS PHYSICAL EXAM ED Triage Vitals [10/12/221954] Temp Heart Rate Resp BP 36.6 C (97.8 F) 96 18 137/86 SpO2 Temp src Heart Rate Source Patient Position 97 % -- -- -- BP Location FiO2 (%) -- -- Physical Exam Vitals and nursing note reviewed. Constitutional: General: He is not in acute distress. Appearance: Normal appearance. He is not ill-appearing or toxic-appearing. HENT: Head: Normocephalic and atraumatic. Mouth/Throat: Pharynx: Oropharynx is clear. Eyes: General: No scleral icterus. Conjunctiva/sclera: Conjunctivae normal. Pupils: Pupils are equal, round, and reactive to light. Cardiovascular: Rate and Rhythm: Normal rate and regular rhythm. Pulses: Normal pulses. Pulmonary: Effort: Pulmonary effort is normal. No respiratory distress. Breath sounds: Normal breath sounds. Musculoskeletal: General: Normal range of motion. Cervical back: Normal range of motion. Right lower leg: No edema. Left lower leg: Edema present. Skin: General: Skin is warm and dry. Neurological: General: No focal deficit present. Mental Status: He is alert and oriented to person, place, and time. DIAGNOSTIC RESULTS RADIOLOGY (Per Emergency Physician): Interpretation per the Radiologist below, if available at the time of this note: No orders to display LABS: Labs Reviewed - No data to display All other labs were within normal range or not returned as of this dictation. EMERGENCY DEPARTMENT COURSE and DIFFERENTIAL DIAGNOSIS/MDM: Vitals: Vitals: 10/12/221954 BP: 137/86 Pulse: 96 Resp: 18 Temp: 36.6 C (97.8 F) SpO2: 97% Medications oxyCODONE (Roxicodone) immediate release tablet 5 mg (5 mg Oral Given 10/12/222046) 62-year-old male presented to the ED for extensive lower extremity DVT found earlier today in the ED unable to get prescribed blood thinner outpatient and inability to walk due to left leg pain. Patient was given Lovenox shot around 3 PM today. Exam as above with extensive left lower extremity swelling and calf tenderness neurovascular intact distally. Patient denying any respiratory symptoms. I reviewed work-up from earlier today admission called. I discussed this case with Dr. Allison who accepted patient for admission with Lovenox injection around 3 PM and no further anticoagulation at this time. MDM elements: The patient presented with chief complaint of left leg pain, inability to walk. The differential diagnosis associated with this patient's presentation includes DVT, leg pain, ambulatory dysfunction. Our workup consisted of ordering/reviewing: See above. Diagnostic tests considered but not performed: Considered blood work however patient was seen earlier today already had blood work and imaging I also reviewed external records from ED note from earlier today. I discussed their care with Admitting team Dr. Allison. The patient will be Admitted. Patient is in agreement with this plan. Patient's care was impacted by acute left lower extremity DVT. Patient's care was significantly impacted by social determinants of health including lives home alone, inability to get outpatient medications. PROCEDURES: Unless otherwise noted below, none Procedures CRITICAL CARE TIME FINAL IMPRESSION 1. Acute deep vein thrombosis (DVT) of left lower extremity, unspecified vein (HCC) 2. Ambulatory dysfunction DISPOSITION Admit 10/12/2022 09:10:23 PM PATIENT REFERRED TO: No follow-up provider specified. DISCHARGE MEDICATIONS: New Prescriptions No medications on file (Comment: Please note this report has been produced using speech recognition software and may contain errors related to that system including errors in grammar, punctuation, and spelling, as well as words and phrases that may be inappropriate. If there are any questions or concerns please feel freeto contact the dictating provider for clarification.) Natacha Frankel DO (electronically signed) Emergency Medicine Provider Natacha Frankel DO 10/12/222121 * Jacob Barron RN - 10/12/2022 7:42 PM EDT Pt to room 4 via wheelchair with c/o left leg pain and swelling which onset was 5pm. Pt was seen earlier today and discharged but was later decided he was uncomfortable being on his own because he iscurrently wheelchair bound when he normally is ambulatory. Pt a/ox3 documented in this [facility]08-18-2023 Emergency department Triage note* Jacob Barron RN - 10/12/2022 7:42 PM EDT Pt to room 4 via wheelchair with c/o left leg pain and swelling which onset was 5pm. Pt was seen earlier today and discharged but was later decided he was uncomfortable being on his own because he iscurrently wheelchair bound when he normally is ambulatory. Pt a/ox3 [id number] Emergency department Note* Natacha Frankel DO - 10/12/2022 7:42 PM EDT EMERGENCY DEPARTMENT ENCOUNTER Pt Name: Jaylen Queen Birthdate 1960 Date of evaluation: 10/12/2022 ED Provider: Natacha Frankel DO CHIEF COMPLAINT Chief Complaint Patient presents with Leg Pain HISTORY OF PRESENT ILLNESS (Location/Symptom, Timing/Onset, Context/Setting, Quality, Duration, Modifying Factors, Severity) Note limiting factors. I wore appropriate PPE for the entirety of this encounter. HPI Jaylen Queen is a 62 y.o. who presents to the emergency department for left leg pain. Patient wasseen earlier today for the same diagnosed with an extensive left leg DVT however was unable to get his prescribed blood thinner at the pharmacy. Additionally patient now uncomfortable going home because he cannot walk due to the pain and lives home alone. Daughter at bedside. Nursing Notes were reviewed. Limitations to history: None Outside historians: None REVIEW OF SYSTEMS Review of Systems Pertinent positives and negatives as per HPI PAST MEDICAL HISTORY Past Medical History: Diagnosis Date Abscess of scrotum 09/15/2020 Last Assessment & Plan: Urology office was contacted and I spoke to the nurse practitioner Farzana and she was going to see if they could rearrange some schedules to get him in [place]. She was going to call and talk with Jaylen. 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 NSR Troponin negative. Echocardiogram EF 69, no significant valvular disease. Recommend cardiology as outpatient for further workup- likely stress test. - patient d eclining. 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 Tobacco use disorder Unspecified hearing loss Unspecified hypothyroidism SURGICAL HISTORY Past Surgical History: Procedure Laterality Date CHOLECYSTECTOMY COLONOSCOPY KNEE SURGERY Right SMALL INTESTINE SURGERY TONSILLECTOMY (HISTORICAL) CURRENT MEDICATIONS Previous Medications CABERGOLINE (DOSTINEX) 0.5 MG TABLET take 1 1/2 tablet by mouth ON SATURDAY AND SATURDAY FENOFIBRATE (TRIGLIDE) 160 MG TABLET take 1 tablet by mouth once daily LEVOTHYROXINE (SYNTHROID, LEVOXYL) 100 MCG TABLET Take 1 tablet (100 mcg) by mouth daily. NIACIN (NIASPAN) 1000 MG ER TABLET Take 1 tablet (1,000 mg) by mouth daily. OXYCODONE-ACETAMINOPHEN (PERCOCET) 5-325 MG TABLET Take 1 tablet by mouth every 6 hours as needed for severe pain (7-10) for up to 5 days. RIVAROXABAN (XARELTO) 20 MG TABLET Take 1 tablet (20 mg) by mouth with evening meal for 10 days. Take with food. ROSUVASTATIN (CRESTOR) 10 MG TABLET Take 1 tablet (10 mg) by mouth daily. TADALAFIL (CIALIS) 5 MG TABLET Take 1 tablet (5 mg) by mouth daily. TAMSULOSIN (FLOMAX) 0.4 MG 24 HR CAPSULE Take 1 capsule (0.4 mg) by mouth daily. Do not start before September 24, 2022. ALLERGIES Meperidine FAMILY HISTORY Family History Adopted: Yes Problem Relation Name Age of Onset No Known Problems Father Cancer Mother lung SOCIAL HISTORY Social History Socioeconomic History Marital status: Tobacco Use Smoking status: Some Days Packs/day: 0.25 Types: Cigarettes Last attempt to quit: 03/2022 Years since quittin.5 Smokeless tobacco: Never Substance and Sexual Activity Alcohol use: Yes Drug use: Yes Types: Marijuana Social Determinants of Health Financial Resource Strain: Low Risk (02/06/2022) Overall Financial Resource Strain (CARDIA) Difficulty of Paying Living Expenses: Not hard at all Food Insecurity: No Food Insecurity (02/06/2022) Hunger Vital Sign Worried About Running Out of Food in the Last Year: Never true Ran Out of Food in the Last Year: Never true Transportation Needs: No Transportation Needs (02/06/2022) PRAPARE - Transportation Lack of Transportation (Medical): No Lack of Transportation (Non-Medical): No SCREENINGS PHYSICAL EXAM ED Triage Vitals [10/12/221954] Temp Heart Rate Resp BP 36.6 C (97.8 F) 96 18 137/86 SpO2 Temp src Heart Rate Source Patient Position 97 % -- -- -- BP Location FiO2 (%) -- -- Physical Exam Vitals and nursing note reviewed. Constitutional: General: He is not in acute distress. Appearance: Normal appearance. He is not ill-appearing or toxic-appearing. HENT: Head: Normocephalic and atraumatic. Mouth/Throat: Pharynx: Oropharynx is clear. Eyes: General: No scleral icterus. Conjunctiva/sclera: Conjunctivae normal. Pupils: Pupils are equal, round, and reactive to light. Cardiovascular: Rate and Rhythm: Normal rate and regular rhythm. Pulses: Normal pulses. Pulmonary: Effort: Pulmonary effort is normal. No respiratory distress. Breath sounds: Normal breath sounds. Musculoskeletal: General: Normal range of motion. Cervical back: Normal range of motion. Right lower leg: No edema. Left lower leg: Edema present. Skin: General: Skin is warm and dry. Neurological: General: No focal deficit present. Mental Status: He is alert and oriented to person, place, and time. DIAGNOSTIC RESULTS RADIOLOGY (Per Emergency Physician): Interpretation per the Radiologist below, if available at the time of this note: No orders to display LABS: Labs Reviewed - No data to display All other labs were within normal range or not returned as of this dictation. EMERGENCY DEPARTMENT COURSE and DIFFERENTIAL DIAGNOSIS/MDM: Vitals: Vitals: 10/12/221954 BP: 137/86 Pulse: 96 Resp: 18 Temp: 36.6 C (97.8 F) SpO2: 97% Medications oxyCODONE (Roxicodone) immediate release tablet 5 mg (5 mg Oral Given 10/12/222046) 62-year-old male presented to the ED for extensive lower extremity DVT found earlier today in the ED unable to get prescribed blood thinner outpatient and inability to walk due to left leg pain. Patient was given Lovenox shot around 3 PM today. Exam as above with extensive left lower extremity swelling and calf tenderness neurovascular intact distally. Patient denying any respiratory symptoms. I reviewed work-up from earlier today admission called. I discussed this case with Dr. Allison who accepted patient for admission with Lovenox injection around 3 PM and no further anticoagulation at this time. MDM elements: The patient presented with chief complaint of left leg pain, inability to walk. The differential diagnosis associated with this patient's presentation includes DVT, leg pain, ambulatory dysfunction. Our workup consisted of ordering/reviewing: See above. Diagnostic tests considered but not performed: Considered blood work however patient was seen earlier today already had blood work and imaging I also reviewed external records from ED note from earlier today. I discussed their care with Admitting team Dr. Allison. The patient will be Admitted. Patient is in agreement with this plan. Patient's care was impacted by acute left lower extremity DVT. Patient's care was significantly impacted by social determinants of health including lives home alone, inability to get outpatient medications. PROCEDURES: Unless otherwise noted below, none Procedures CRITICAL CARE TIME FINAL IMPRESSION 1. Acute deep vein thrombosis (DVT) of left lower extremity, unspecified vein (HCC) 2. Ambulatory dysfunction DISPOSITION Admit 10/12/2022 09:10:23 PM PATIENT REFERRED TO: No follow-up provider specified. DISCHARGE MEDICATIONS: New Prescriptions No medications on file (Comment: Please note this report has been produced using speech recognition software and may contain errors related to that system including errors in grammar, punctuation, and spelling, as well as words and phrases that may be inappropriate. If there are any questions or concerns please feel freeto contact the dictating provider for clarification.) Natacha Frankel DO (electronically signed) Emergency Medicine Provider Natacha Frankel DO 10/12/222121 [id number] Hospital Discharge instructions* Discharge Instructions* Pacheco Negron MD - 10/12/2022 3:[address] Perales about renewing your anticoagulation medicine and how long you will need to be on the medicine. * Attachments The following attachments cannot be sent through Care Everywhere. * Deep Vein Thrombosis (Blood Clot in the Legs) ([facility]) * Going Home on Blood Thinners ([facility]) documented in this [facility]08-18-2023 Emergency department Note* Lauren Del Angel RN - 10/12/2022 1:23 PM EDT Physician at bedside Lauren Del Angel RN 10/12/22 1538 [id number] Emergency department Note* Lauren Del Angel RN - 10/12/2022 1:23 PM EDT Pt medicated for pain prior to discharge d/t increased pain. Lauren Del Angel RN 10/12/22 1622 [id number] Emergency department Note* Pacheco Negron MD - 10/12/2022 1:23 PM EDT EMERGENCY DEPARTMENT ENCOUNTER Pt Name: Jaylen Queen Birthdate 1960 Date of evaluation: 10/12/2022 ED Provider: Pacheco Negron MD CHIEF COMPLAINT Chief Complaint Patient presents with Leg Pain History from patient HISTORY OF PRESENT ILLNESS (Location/Symptom, Timing/Onset, Context/Setting, Quality, Duration, Modifying Factors, Severity) Note limiting factors. I wore appropriate PPE for the entirety of this encounter. HPI Jaylen Queen is a 62 y.o. who presents to the emergency department with chief complaint of left leg swelling. Began yesterday. Diffuse swelling and pain on his entire leg. Hurts to walk. Never had this before. No fever or overuse. No injury. No pain elsewhere. Recently hospitalized for urinary retention and infection. Recently drove home from [place]. States he is adopted but his biologic family has history of clots. He has never had a blood clot. No other complaint. Nursing Notes were reviewed. Limitations to history: None Outside historians: None REVIEW OF SYSTEMS Review of Systems Constitutional: Negative for fever. Eyes: Negative for visual disturbance. Respiratory: Negative for shortness of breath. Cardiovascular: Positive for leg swelling. Negative for chest pain. Gastrointestinal: Negative for abdominal pain. Genitourinary: Negative for difficulty urinating. Musculoskeletal: Positive for gait problem, joint swelling and myalgias. Negative for arthralgias, back pain, neck pain and neck stiffness. Skin: Negative for rash. Neurological: Negative for headaches. Pertinent positives and negatives as per HPI. PAST MEDICAL HISTORY Past Medical History: Diagnosis Date Abscess of scrotum 09/15/2020 Last Assessment & Plan: Urology office was contacted and I spoke to the nurse practitioner Farzana and she was going to see if they could rearrange some schedules to get him in [place]. She was going to call and talk with Jaylen. 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 NSR Troponin negative. Echocardiogram EF 69, no significant valvular disease. Recommend cardiology as outpatient for further workup- likely stress test. - patient d eclining. 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 Tobacco use disorder Unspecified hearing loss Unspecified hypothyroidism SURGICAL HISTORY Past Surgical History: Procedure Laterality Date CHOLECYSTECTOMY COLONOSCOPY KNEE SURGERY Right SMALL INTESTINE SURGERY TONSILLECTOMY (HISTORICAL) CURRENT MEDICATIONS Previous Medications CABERGOLINE (DOSTINEX) 0.5 MG TABLET take 1 1/2 tablet by mouth ON SATURDAY AND SATURDAY FENOFIBRATE (TRIGLIDE) 160 MG TABLET take 1 tablet by mouth once daily LEVOTHYROXINE (SYNTHROID, LEVOXYL) 100 MCG TABLET Take 1 tablet (100 mcg) by mouth daily. NIACIN (NIASPAN) 1000 MG ER TABLET Take 1 tablet (1,000 mg) by mouth daily. ROSUVASTATIN (CRESTOR) 10 MG TABLET Take 1 tablet (10 mg) by mouth daily. TADALAFIL (CIALIS) 5 MG TABLET Take 1 tablet (5 mg) by mouth daily. TAMSULOSIN (FLOMAX) 0.4 MG 24 HR CAPSULE Take 1 capsule (0.4 mg) by mouth daily. Do not start before September 24, 2022. ALLERGIES Meperidine FAMILY HISTORY Family History Adopted: Yes Problem Relation Name Age of Onset No Known Problems Father Cancer Mother lung SOCIAL HISTORY Social History Socioeconomic History Marital status: Tobacco Use Smoking status: Some Days Packs/day: 0.25 Types: Cigarettes Last attempt to quit: 03/2022 Years since quittin.5 Smokeless tobacco: Never Substance and Sexual Activity Alcohol use: Yes Drug use: Yes Types: Marijuana Social Determinants of Health Financial Resource Strain: Low Risk (02/06/2022) Overall Financial Resource Strain (CARDIA) Difficulty of Paying Living Expenses: Not hard at all Food Insecurity: No Food Insecurity (02/06/2022) Hunger Vital Sign Worried About Running Out of Food in the Last Year: Never true Ran Out of Food in the Last Year: Never true Transportation Needs: No Transportation Needs (02/06/2022) PRAPARE - Transportation Lack of Transportation (Medical): No Lack of Transportation (Non-Medical): No SCREENINGS PHYSICAL EXAM ED Triage Vitals Temp Pulse Resp BP -- -- -- -- SpO2 Temp src Heart Rate Source Patient Position -- -- -- -- BP Location FiO2 (%) -- -- Physical Exam Constitutional: Appearance: He is not ill-appearing. HENT: Head: Normocephalic and atraumatic. Cardiovascular: Rate and Rhythm: Normal rate. Pulmonary: Effort: Pulmonary effort is normal. Skin: General: Skin is warm and dry. Capillary Refill: Capillary refill takes less than 2 seconds. Neurological: General: No focal deficit present. Mental Status: He is alert. Not febrile not toxic Lungs clear Heart regular rate and rhythm Extremity -left leg swollen compared to right, full range of motion, no crepitance, no erythema, nopoint tenderness, neurovascular intact, no Homans' sign or cords, good PT and DP pulses DIAGNOSTIC RESULTS RADIOLOGY (Per Emergency Physician): Left tib-fib x-ray - no soft tissue gas Left lower extremity ultrasound -per radiologist Interpretation per the Radiologist below, if available at the time of this note: Vascular US lower extremity venous duplex left Final Result Positive for DVT throughout the left lower extremity. These findings were discussed with physician/provider PACHECO NEGRON by Secure Chat on 10/12/2022 at 3:16 PM EDT. Report Dictated on Electronically Signed By: Chan Woodard MD Electronically Signed Date/Time: 10/12/2022 3:20 PM EDT XR tibia fibula 2 views left Final Result No acute osseous abnormality. Report Dictated on Electronically Signed By: Jesús Danielson MD Electronically Signed Date/Time: 10/12/2022 3:24 PM EDT LABS: Labs Reviewed CBC WITH AUTO DIFFERENTIAL - Abnormal Result Value Auto WBC 9.9 RBC 4.71 Hemoglobin 14.6 Hematocrit 43.0 MCV 91.3 MCH 31.0 MCHC 34.0 RDW 13.0 Platelets 273 MPV 9.0 Neutrophils Relative 70.0 Lymphocytes Relative 16.4 (*) Monocytes Relative 9.3 Eosinophils Relative 3.0 Basophils Relative 0.7 Immature Grans % 0.6 (*) Neutrophils Absolute 6.9 Lymphocytes Absolute 1.6 Monocytes Absolute 0.9 (*) Eosinophils Absolute 0.3 Basophils Absolute 0.1 Immature Grans Absolute 0.1 (*) BASIC METABOLIC PANEL - Abnormal SODIUM 137 POTASSIUM 4.8 CHLORIDE 104 CARBON DIOXIDE 21 (*) UREA NITROGEN 18 CREATININE 1.45 (*) GLUCOSE 121 (*) CALCIUM 11.1 (*) ANION GAP 12 eGFR 54.8 (*) CK - Normal CK 54 LACTIC ACID, SEPSIS WITH REFLEX IF ELEVATED - Normal LACTIC ACID 1.2 All other labs were within normal range or not returned as of this dictation. EMERGENCY DEPARTMENT COURSE and DIFFERENTIAL DIAGNOSIS/MDM: Vitals: Vitals: 10/12/22 1336 BP: (!) 143/86 BP Location: Right arm Patient Position: Sitting Pulse: 91 Resp: 14 Temp: 36.6 C (97.8 F) TempSrc: Oral SpO2: 96% Weight: 107 kg (235 lb) Diagnoses as of 10/12/22 1550 Leg swelling Acute deep vein thrombosis (DVT) of left lower extremity, unspecified vein (HCC) Medical Decision Making and ED Course The patient presented with a chief complaint of left leg swelling. The differential diagnosis associated with this patient's presentation includes peripheral edema DVT cellulitis fasciitis myositis. Our workup consisted of ordering/reviewing laboratory studies leg ultrasound and leg x-ray. Laboratory work-up shows no clinically significant electrolyte abnormality, no hyperglycemia, no leukocytosis or anemia, no elevated lactate making systemic infection less likely, no elevated CK making rhabdomyolysis less likely. He does have mild renal insufficiency with a creatinine of 1.45 which is not si gnificantly changed compared to 1.34 on September 17, 2022. X-ray showed no evidence of soft tissue gas making necrotizing fasciitis less likely. Ultrasound revealed deep venous thrombosis, extensive involving his entire leg. Most likely secondary to easier there his recent hospitalization his family history or his recent car trip. Patient offered hospitalization and elects outpatient follow-up. Medication begun. Diagnostic tests and medications considered but not ordered: High risk for clot so D-dimer is not indicated. Review of prior external records: Discharge summary dated September 23, 2022 for pyelonephritis complicated by system strain requiring IV antibiotics and follow- up of BPH Independent test interpretation by me: Left leg x-ray Discussions of test interpretation with other clinicians: Radiologist reading ultrasound results Chronic conditions impacting care: Hyperlipidemia hypothyroid hyperparathyroid GERD hypertension Social determinants of health affecting care: Adopted, recently hospitalized ED Medications managed: Lovenox given in the emergency department to start treatment until patient can get oral anticoagulants Consideration of hospitalization or de-escalation of care: Discussion and shared decision making with patient about the risks and benefits of outpatient versus hospitalization for treatment. He is aware that he is at increased risk for pulmonary embolism. He was recently hospitalized and elects outpatient treatment. He is educated that he may return at any time for further care REVAL: 3:15 PM Notified by radiology that ultrasound is positive for DVT. Patient considering treatment options we will discuss with his family. 3:27 PM All data now available and reviewed with patient. 3:39 PM after discussion with family, patient elects outpatient treatment. Requests percocet prior to discharge. Ordered. FINAL IMPRESSION 1. Leg swelling 2. Acute deep vein thrombosis (DVT) of left lower extremity, unspecified vein (HCC) Hyperlipidemia hypothyroid hyperparathyroid GERD hypertension Pituitary tumor DISPOSITION Discharge 10/12/2022 03:47:20 PM PATIENT REFERRED TO: Lake Perales MD [address] [place] [address], [address] [place] [phone] In 1 week DISCHARGE MEDICATIONS: New Prescriptions OXYCODONE-ACETAMINOPHEN (PERCOCET) 5-325 MG TABLET Take 1 tablet by mouth every 6 hours as needed for severe pain (7-10) for up to 5 days. RIVAROXABAN (XARELTO) 20 MG TABLET Take 1 tablet (20 mg) by mouth with evening meal for 10 days. Take with food. (Comment: Please note this report has been produced using speech recognition software and may contain errors related to that system including errors in grammar, punctuation, and spelling, as well as words and phrases that may be inappropriate. If there are any questions or concerns please feel freeto contact the dictating provider for clarification.) Pacheco Negron MD (electronically signed) Emergency Medicine Provider Pacheco Negron MD 10/12/22 1614 Addendum 5:54 PM received call from patient stating that right al[facility]enig would not fill his prescription. I contacted Danyelle in the pharmacy who stated that she needed pre-authorization from insurance. Keysha made aware that the patient has a DVT and is at increased for pulmonary embolism, that he needed his medication and that no insurance company would give pre-authorization over the weekend. She suggested changing the prescription to Eliquis which I did. Eliquis 10 mg twice daily for 10 days. Patient aware. Pacheco Negron MD 10/12/221754 Pacheco Negron MD 10/12/22 977 * Lauren Del Angel RN - 10/12/2022 1:23 PM EDT Pt to room 4 via wheelchair with c/o left feg pain and swelling that was a gradual onset since yesterday at 5 pm. Pt states pain began as an aching pain that is more noticeable in left upper and inner thigh but has a general tight aching throughout leg. The leg appears slightly discolored and slightly increased in size compared to the right. Pt stateshe has increased pain with palpation on all aspect. Pedal pulse is strong. Pt denies any recent injury to are. Denies any recent travels or surgery. Associated symptoms of nausea with pain. Upon discharge, while speaking with patient, he states he was recently discharged from [facility] and then informs that he did recently drive home from [place] and returned last week. * Lauren Del Angel RN - 10/12/2022 1:23 PM EDT Physician at bedside Lauren Del Angel RN 10/12/22 [id number] * Lauren Del Angel RN - 10/12/2022 1:23 PM EDT Pt medicated for pain prior to discharge d/t increased pain. Lauren Del Angel RN 10/12/22 1622 documented in this [facility]08-18-2023 Emergency department Triage note* Lauren Del Angel RN - 10/12/2022 1:23 PM EDT Pt to room 4 via wheelchair with c/o left feg pain and swelling that was a gradual onset since yesterday at 5 pm. Pt states pain began as an aching pain that is more noticeable in left upper and inner thigh but has a general tight aching throughout leg. The leg appears slightly discolored and slightly increased in size compared to the right. Pt stateshe has increased pain with palpation on all aspect. Pedal pulse is strong. Pt denies any recent injury to are. Denies any recent travels or surgery. Associated symptoms of nausea with pain. Upon discharge, while speaking with patient, he states he was recently discharged from [facility] and then informs that he did recently drive home from [place] and returned last week. [id number] Emergency department Note* Pacheco Negron MD - 10/12/2022 1:23 PM EDT EMERGENCY DEPARTMENT ENCOUNTER Pt Name: Jaylen Queen Birthdate 1960 Date of evaluation: 10/12/2022 ED Provider: Pacheco Negron MD CHIEF COMPLAINT Chief Complaint Patient presents with Leg Pain History from patient HISTORY OF PRESENT ILLNESS (Location/Symptom, Timing/Onset, Context/Setting, Quality, Duration, Modifying Factors, Severity) Note limiting factors. I wore appropriate PPE for the entirety of this encounter. HPI Jaylen Queen is a 62 y.o. who presents to the emergency department with chief complaint of left leg swelling. Began yesterday. Diffuse swelling and pain on his entire leg. Hurts to walk. Never had this before. No fever or overuse. No injury. No pain elsewhere. Recently hospitalized for urinary retention and infection. Recently drove home from [place]. States he is adopted but his biologic family has history of clots. He has never had a blood clot. No other complaint. Nursing Notes were reviewed. Limitations to history: None Outside historians: None REVIEW OF SYSTEMS Review of Systems Constitutional: Negative for fever. Eyes: Negative for visual disturbance. Respiratory: Negative for shortness of breath. Cardiovascular: Positive for leg swelling. Negative for chest pain. Gastrointestinal: Negative for abdominal pain. Genitourinary: Negative for difficulty urinating. Musculoskeletal: Positive for gait problem, joint swelling and myalgias. Negative for arthralgias, back pain, neck pain and neck stiffness. Skin: Negative for rash. Neurological: Negative for headaches. Pertinent positives and negatives as per HPI. PAST MEDICAL HISTORY Past Medical History: Diagnosis Date Abscess of scrotum 09/15/2020 Last Assessment & Plan: Urology office was contacted and I spoke to the nurse practitioner Farzana and she was going to see if they could rearrange some schedules to get him in [place]. She was going to call and talk with Jaylen. 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 NSR Troponin negative. Echocardiogram EF 69, no significant valvular disease. Recommend cardiology as outpatient for further workup- likely stress test. - patient d eclining. 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 Tobacco use disorder Unspecified hearing loss Unspecified hypothyroidism SURGICAL HISTORY Past Surgical History: Procedure Laterality Date CHOLECYSTECTOMY COLONOSCOPY KNEE SURGERY Right SMALL INTESTINE SURGERY TONSILLECTOMY (HISTORICAL) CURRENT MEDICATIONS Previous Medications CABERGOLINE (DOSTINEX) 0.5 MG TABLET take 1 1/2 tablet by mouth ON SATURDAY AND SATURDAY FENOFIBRATE (TRIGLIDE) 160 MG TABLET take 1 tablet by mouth once daily LEVOTHYROXINE (SYNTHROID, LEVOXYL) 100 MCG TABLET Take 1 tablet (100 mcg) by mouth daily. NIACIN (NIASPAN) 1000 MG ER TABLET Take 1 tablet (1,000 mg) by mouth daily. ROSUVASTATIN (CRESTOR) 10 MG TABLET Take 1 tablet (10 mg) by mouth daily. TADALAFIL (CIALIS) 5 MG TABLET Take 1 tablet (5 mg) by mouth daily. TAMSULOSIN (FLOMAX) 0.4 MG 24 HR CAPSULE Take 1 capsule (0.4 mg) by mouth daily. Do not start before September 24, 2022. ALLERGIES Meperidine FAMILY HISTORY Family History Adopted: Yes Problem Relation Name Age of Onset No Known Problems Father Cancer Mother lung SOCIAL HISTORY Social History Socioeconomic History Marital status: Tobacco Use Smoking status: Some Days Packs/day: 0.25 Types: Cigarettes Last attempt to quit: 03/2022 Years since quittin.5 Smokeless tobacco: Never Substance and Sexual Activity Alcohol use: Yes Drug use: Yes Types: Marijuana Social Determinants of Health Financial Resource Strain: Low Risk (02/06/2022) Overall Financial Resource Strain (CARDIA) Difficulty of Paying Living Expenses: Not hard at all Food Insecurity: No Food Insecurity (02/06/2022) Hunger Vital Sign Worried About Running Out of Food in the Last Year: Never true Ran Out of Food in the Last Year: Never true Transportation Needs: No Transportation Needs (02/06/2022) PRAPARE - Transportation Lack of Transportation (Medical): No Lack of Transportation (Non-Medical): No SCREENINGS PHYSICAL EXAM ED Triage Vitals Temp Pulse Resp BP -- -- -- -- SpO2 Temp src Heart Rate Source Patient Position -- -- -- -- BP Location FiO2 (%) -- -- Physical Exam Constitutional: Appearance: He is not ill-appearing. HENT: Head: Normocephalic and atraumatic. Cardiovascular: Rate and Rhythm: Normal rate. Pulmonary: Effort: Pulmonary effort is normal. Skin: General: Skin is warm and dry. Capillary Refill: Capillary refill takes less than 2 seconds. Neurological: General: No focal deficit present. Mental Status: He is alert. Not febrile not toxic Lungs clear Heart regular rate and rhythm Extremity -left leg swollen compared to right, full range of motion, no crepitance, no erythema, nopoint tenderness, neurovascular intact, no Homans' sign or cords, good PT and DP pulses DIAGNOSTIC RESULTS RADIOLOGY (Per Emergency Physician): Left tib-fib x-ray - no soft tissue gas Left lower extremity ultrasound -per radiologist Interpretation per the Radiologist below, if available at the time of this note: Vascular US lower extremity venous duplex left Final Result Positive for DVT throughout the left lower extremity. These findings were discussed with physician/provider PACHECO NEGRON by Secure Chat on 10/12/2022 at 3:16 PM EDT. Report Dictated on Electronically Signed By: Chan Woodard MD Electronically Signed Date/Time: 10/12/2022 3:20 PM EDT XR tibia fibula 2 views left Final Result No acute osseous abnormality. Report Dictated on Electronically Signed By: Jesús Danielson MD Electronically Signed Date/Time: 10/12/2022 3:24 PM EDT LABS: Labs Reviewed CBC WITH AUTO DIFFERENTIAL - Abnormal Result Value Auto WBC 9.9 RBC 4.71 Hemoglobin 14.6 Hematocrit 43.0 MCV 91.3 MCH 31.0 MCHC 34.0 RDW 13.0 Platelets 273 MPV 9.0 Neutrophils Relative 70.0 Lymphocytes Relative 16.4 (*) Monocytes Relative 9.3 Eosinophils Relative 3.0 Basophils Relative 0.7 Immature Grans % 0.6 (*) Neutrophils Absolute 6.9 Lymphocytes Absolute 1.6 Monocytes Absolute 0.9 (*) Eosinophils Absolute 0.3 Basophils Absolute 0.1 Immature Grans Absolute 0.1 (*) BASIC METABOLIC PANEL - Abnormal SODIUM 137 POTASSIUM 4.8 CHLORIDE 104 CARBON DIOXIDE 21 (*) UREA NITROGEN 18 CREATININE 1.45 (*) GLUCOSE 121 (*) CALCIUM 11.1 (*) ANION GAP 12 eGFR 54.8 (*) CK - Normal CK 54 LACTIC ACID, SEPSIS WITH REFLEX IF ELEVATED - Normal LACTIC ACID 1.2 All other labs were within normal range or not returned as of this dictation. EMERGENCY DEPARTMENT COURSE and DIFFERENTIAL DIAGNOSIS/MDM: Vitals: Vitals: 10/12/22 1336 BP: (!) 143/86 BP Location: Right arm Patient Position: Sitting Pulse: 91 Resp: 14 Temp: 36.6 C (97.8 F) TempSrc: Oral SpO2: 96% Weight: 107 kg (235 lb) Diagnoses as of 10/12/22 1550 Leg swelling Acute deep vein thrombosis (DVT) of left lower extremity, unspecified vein (HCC) Medical Decision Making and ED Course The patient presented with a chief complaint of left leg swelling. The differential diagnosis associated with this patient's presentation includes peripheral edema DVT cellulitis fasciitis myositis. Our workup consisted of ordering/reviewing laboratory studies leg ultrasound and leg x-ray. Laboratory work-up shows no clinically significant electrolyte abnormality, no hyperglycemia, no leukocytosis or anemia, no elevated lactate making systemic infection less likely, no elevated CK making rhabdomyolysis less likely. He does have mild renal insufficiency with a creatinine of 1.45 which is not si gnificantly changed compared to 1.34 on September 17, 2022. X-ray showed no evidence of soft tissue gas making necrotizing fasciitis less likely. Ultrasound revealed deep venous thrombosis, extensive involving his entire leg. Most likely secondary to easier there his recent hospitalization his family history or his recent car trip. Patient offered hospitalization and elects outpatient follow-up. Medication begun. Diagnostic tests and medications considered but not ordered: High risk for clot so D-dimer is not indicated. Review of prior external records: Discharge summary dated September 23, 2022 for pyelonephritis complicated by system strain requiring IV antibiotics and follow- up of BPH Independent test interpretation by me: Left leg x-ray Discussions of test interpretation with other clinicians: Radiologist reading ultrasound results Chronic conditions impacting care: Hyperlipidemia hypothyroid hyperparathyroid GERD hypertension Social determinants of health affecting care: Adopted, recently hospitalized ED Medications managed: Lovenox given in the emergency department to start treatment until patient can get oral anticoagulants Consideration of hospitalization or de-escalation of care: Discussion and shared decision making with patient about the risks and benefits of outpatient versus hospitalization for treatment. He is aware that he is at increased risk for pulmonary embolism. He was recently hospitalized and elects outpatient treatment. He is educated that he may return at any time for further care REVAL: 3:15 PM Notified by radiology that ultrasound is positive for DVT. Patient considering treatment options we will discuss with his family. 3:27 PM All data now available and reviewed with patient. 3:39 PM after discussion with family, patient elects outpatient treatment. Requests percocet prior to discharge. Ordered. FINAL IMPRESSION 1. Leg swelling 2. Acute deep vein thrombosis (DVT) of left lower extremity, unspecified vein (HCC) Hyperlipidemia hypothyroid hyperparathyroid GERD hypertension Pituitary tumor DISPOSITION Discharge 10/12/2022 03:47:20 PM PATIENT REFERRED TO: Lake Perales MD [facility], [address] [facility] [phone] In 1 week DISCHARGE MEDICATIONS: New Prescriptions OXYCODONE-ACETAMINOPHEN (PERCOCET) 5-325 MG TABLET Take 1 tablet by mouth every 6 hours as needed for severe pain (7-10) for up to 5 days. RIVAROXABAN (XARELTO) 20 MG TABLET Take 1 tablet (20 mg) by mouth with evening meal for 10 days. Take with food. (Comment: Please note this report has been produced using speech recognition software and may contain errors related to that system including errors in grammar, punctuation, and spelling, as well as words and phrases that may be inappropriate. If there are any questions or concerns please feel freeto contact the dictating provider for clarification.) Pacheco Negron MD (electronically signed) Emergency Medicine Provider Pacheco Negron MD 10/12/22 7004 Addendum 5:54 PM received call from patient stating that right alen Koenig would not fill his prescription. I contacted Danyelle in the pharmacy who stated that she needed pre-authorization from insurance. Keysha made aware that the patient has a DVT and is at increased for pulmonary embolism, that he needed his medication and that no insurance company would give pre-authorization over the weekend. She suggested changing the prescription to Eliquis which I did. Eliquis 10 mg twice daily for 10 days. Patient aware. Pacheco Negron MD 10/12/22 105 Pacheco Negron MD 10/12/22 5028 [id number] History of Present illness Narrative* Cheryl Basilio MD - 10/11/2022 8:20 AM EDT Images from the original note were not included. [facility] [address] [facility] [address] [facility] [id number] Dept: [phone] Dept Loc: [phone] Visit type: New patient Reason for Visit: New Patient (Est care) Assessment and Plan 1. Recurrent UTI - Urinalysis with reflex microscopic (clean catch) - Urine culture (clean catch) - Will obtain urinalysis and urine culture - Keep appointment with urology as scheduled in November for cystoscopy 2. Benign prostatic hyperplasia without lower urinary tract symptoms - tadalafil (Cialis) 5 MG tablet; Take 1 tablet (5 mg) by mouth daily., Starting Lorenza 10/11/2022, Normal - Will have him continue Flomax and also start Elavil daily instead of as needed to help mentally with erectile dysfunction but also with BPH Follow up in about 6 months (around 04/13/2023). Subjective HPI Jef presents today to establish care. He has recently struggled with recurrent UTIs and resistan bacteria. Was hospitalized at the end ofJuly for pyelonephritis and treated with ertapenem due to MDR ESBL E. coli. He has completed this course. He was also seen by urology and started on Flomax. He has planned cystoscopy and appoint withthem in November. Reports that he is not currently having any urinary symptoms. Taking Flomax, tolerating well. Review of Systems Constitutional: Negative for chills and fever. Respiratory: Negative for cough and shortness of breath. Cardiovascular: Negative for chest pain and leg swelling. Gastrointestinal: Negative for abdominal pain, blood in stool, constipation, diarrhea, nausea and vomiting. Musculoskeletal: Negative for arthralgias and myalgias. Neurological: Negative for light-headedness and headaches. Allergies Allergen Reactions Meperidine Nausea And Vomiting Demerol Outpatient Medications Prior to Visit Medication Sig Dispense Refill cabergoline (Dostinex) 0.5 MG tablet take 1 1/2 tablet by mouth ON SATURDAY AND SATURDAY 36 tablet 1 fenofibrate (Triglide) 160 MG tablet take 1 tablet by mouth once daily 90 tablet 1 levothyroxine (Synthroid, Levoxyl) 100 MCG tablet Take 1 tablet (100 mcg) by mouth daily. 90 tablet1 niacin (Niaspan) 1000 MG ER tablet Take 1 tablet (1,000 mg) by mouth daily. 90 tablet 1 rosuvastatin (Crestor) 10 MG tablet Take 1 tablet (10 mg) by mouth daily. 90 tablet 1 tamsulosin (Flomax) 0.4 MG 24 hr capsule Take 1 capsule (0.4 mg) by mouth daily. Do not start before September 24, 2022. 30 capsule 2 tadalafil (Cialis) 20 MG tablet Take 1 tablet (20 mg) by mouth Daily as needed for erectile dysfunction. 14 tablet 3 No facility-administered medications prior to visit. Past Medical History: Diagnosis Date Abscess of scrotum 09/15/2020 Last Assessment & Plan: Urology office was contacted and I spoke to the nurse practitioner Farzana and she was going to see if they could rearrange some schedules to get him in [place]. She was going to call and talk with Jaylen. 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 NSR Troponin negative. Echocardiogram EF 69, no significant valvular disease. Recommend cardiology as outpatient for further workup- likely stress test. - patient d eclining. 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 Tobacco use disorder Unspecified hearing loss Unspecified hypothyroidism Social History Tobacco Use Smoking status: Some Days Packs/day: 0.25 Types: Cigarettes Last attempt to quit: 03/2022 Years since quittin.5 Smokeless tobacco: Never Substance Use Topics Alcohol use: Yes Past Surgical History: Procedure Laterality Date CHOLECYSTECTOMY COLONOSCOPY KNEE SURGERY Right SMALL INTESTINE SURGERY TONSILLECTOMY (HISTORICAL) Family History Adopted: Yes Problem Relation Name Age of Onset No Known Problems Father Cancer Mother lung Objective BP 122/68 (BP Location: Right arm, Patient Position: Sitting, BP Cuff Size: Large adult) Pulse 76 Ht 6' 2 (1.88 m) Wt 232 lb 12.8 oz (106 kg) SpO2 93% BMI 29.89 kg/m Physical Exam Constitutional: General: He is not in acute distress. Appearance: Normal appearance. Cardiovascular: Rate and Rhythm: Normal rate and regular rhythm. Pulses: Normal pulses. Heart sounds: Normal heart sounds. No murmur heard. No gallop. Pulmonary: Effort: Pulmonary effort is normal. Breath sounds: Normal breath sounds. No wheezing. Abdominal: General: Bowel sounds are normal. Palpations: Abdomen is soft. Tenderness: There is no abdominal tenderness. There is no guarding or rebound. Musculoskeletal: Right lower leg: No edema. Left lower leg: No edema. Neurological: Mental Status: He is alert. Cheryl Basilio MD documented in this [facility]08-16-2023 History of Present illness Narrative* Donna Roberts, DO - 10/10/2022 1:00 PM EDT [facility] Department of Pulmonary Medicine PATIENT VISIT-PULMONARY 10/10/2022 REFERRING PHYSICIAN: Lake Perales MD REASON FOR REFERRAL: pleural fluid / copd/ eval Three 6-month follow-up. After PFTs, Jaylen Queen is a very pleasant 62 y.o. male with past medical history significant for recent hospitalization for pyelonephritis, small intestine surgery, benign neoplasm of pituitary gland, hypertension, reflux, kidney stones, recurrent flank pain, recurrent UTIs, recent incidental left-sided pleur al effusion, history of tobacco use., who presents to pulmonary clinic for evaluation of ED follow-up, for abnormal CT imaging, with pleural effusion. 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 He also has extensive 30+ pack-year smoking history, with cessation approximately 6 months ago. He has never had baseline CT chest screening. He was recently evaluated multiple times in the ER for pyel onephritis, recurrent urinary tract infections, evaluation for obstructive uropathy, urinary stones, and possible cyst, today underwent retroperitoneal ultrasound. And was hospitalized on 17 September, for pyelonephritis receiving IV antibiotics,. Most recently he traveled to [place], and 10/02 2022, had sharp pain in his left flank, went to the ER, had a CT scan that showed bilateral hypodensities in the kidneys, as well as incidental left-sided pleural effusion. He was subsequently referred for pulmonary for follow-up, he has some small chronic emphysematous changes also noted on the CT scan, images of which not available to me. On today's encounter we discussed his extensive medical history, recent evaluations, imaging, testing, smoking history. We evaluated his bilateral chest with [id number] ultrasound and no significant or complicated pleural effusions were detected. Patient denies any significant respiratory limitations at this time, and able to form all activities of daily living without limitation. He is planning upcoming trip again to [place] for [employer] and [employer], and feels at baseline at this time. A sample of Stiolto LABA LAMA therapy was also offered to him, instructions for nebulizer use, and PFTs were scheduled., 10/02/22 Chronic emphysematous lung changes. Trace left pleural effusion. Multilevel degenerative changes ofthoracolumbar spine. There are no destructive bone lesions identified. Assessment and Plan: Follow-up for pleural effusion incidental, left-sided, incidentally trace noted on outside CT in [place]. No evidence of recurrence on physical exam and [id number] ultrasound. History of recent hospitalization, ESBL recurrent UTIs, kidney stones, as well as pyelonephritis, treated with antibiotics and IV fluids, and 10/02, incidental CT chest. Trace effusion, images not available,, looking at 09/14/2022, patient had mild bibasilar groundglass, which could be early pulmonary edema. He also had fatty liver disease, which could be contributing to fluid overload. No indication for intervention atthis time. Suspected COPD, longstanding smoking history, Gold severity unclear, minimal symptoms, no significant rotations. On room air. Mild emphysematous changes noted on radiographic evaluation, will evaluate with pulmonary function test, sample of Stiolto provided, instructions for bronchodilator use provided, if significant obstruction noted, will consider further bronchodilator therapy. Patient deniesany significant nocturnal symptoms, Insetting of 30+ pack-year smoking history, low-dose yearly lung CT scan indicated. Discussed risk benefit with patient, he is agreeable, I will proceed with evaluation. Diagnosis Plan 1. Pleural effusion CT lung screening low dose 2. History of tobacco abuse Complete PFT pre and post bronchodilator CT lung screening low dose 3. Centrilobular emphysema (HCC) Complete PFT pre and post bronchodilator CT lung screening low dose Stiolto sample provided. History of Present Illness Smoking history- [x] Occupational exposure- [x] Asthma History [] COPD History [x] Exercise tolerance/MMRC score( 0 ) MMRC Dyspnea Scale Grade Description of Breathlessness 0 I only get breathless with strenuous exercise. 1 I get short of breath when hurrying on level ground or walking up a slight hill. 2 On level ground, I walk slower than people of the same age because of breathlessness, or have to stop for breath when walking at my own pace. 3 I stop for breath afterwalking about 100 yards or after a few minutes on level ground. 4 I am too breathless to leave the house or I am breathless when dressing. PastMedical History Past Medical History: Diagnosis Date Abscess of scrotum 09/15/2020 Last Assessment & Plan: Urology office was contacted and I spoke to the nurse practitioner Farzana and she was going to see if they could rearrange some schedules to get him in [place]. She was going to call and talk with Jaylen. 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 NSR Troponin negative. Echocardiogram EF 69, no significant valvular disease. Recommend cardiology as outpatient for further workup- likely stress test. - patient d eclining. 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 Tobacco use disorder Unspecified hearing loss Unspecified hypothyroidism Past Surgical History Past Surgical History: Procedure Laterality Date CHOLECYSTECTOMY COLONOSCOPY KNEE SURGERY Right SMALL INTESTINE SURGERY TONSILLECTOMY (HISTORICAL) Allergies Allergies Allergen Reactions Meperidine Nausea And Vomiting Demerol Medications reviewed at time of encounter Medication Documentation Review Audit Reviewed by Danae Dudley MA (Hr Representative) on 10/10/22 at 1242 Medication Order Taking? Sig Documenting Provider Last Dose Status cabergoline (Dostinex) 0.5 MG tablet [id number] Yes take 1 1/2 tablet by mouth ON SATURDAY AND SATURDAY Lake Perales MD Taking Active fenofibrate (Triglide) 160 MG tablet [id number] Yes take 1 tablet by mouth once daily FELISHA Jeronimo CNP Taking Active levothyroxine (Synthroid, Levoxyl) 100 MCG tablet [id number] Yes Take 1 tablet (100 mcg) by mouth daily. Rocio Ruiz MD Taking Active niacin (Niaspan) 1000 MG ER tablet [id number] Yes Take 1 tablet (1,000 mg) by mouth daily. Lake Perales MD Taking Active rosuvastatin (Crestor) 10 MG tablet [id number] Yes Take 1 tablet (10 mg) by mouth daily. Lake Perales MD Taking Active tadalafil (Cialis) 20 MG tablet [id number] Yes Take 1 tablet (20 mg) by mouth Daily as needed for erectile dysfunction. FELISHA Jeronimo CNP Taking Active tamsulosin (Flomax) 0.4 MG 24 hr capsule [id number] Yes Take 1 capsule (0.4 mg) by mouth daily. Do not start before September 24, 2022. Kris Lim MD Taking Active Medications reviewed Social History Social History Tobacco Use Smoking status: Former Packs/day: 1.00 Types: Cigarettes Quit date: 03/2022 Years since quittin.5 Smokeless tobacco: Never Substance Use Topics Alcohol use: Yes FamilyHistory Family History Adopted: Yes Problem Relation Name Age of Onset No Known Problems Father Cancer Mother lung In addition to those listed in HPI: Review of Systems Constitutional: Negative for activity change. Respiratory: Negative for apnea, cough, choking, chest tightness and shortness of breath. Cardiovascular: Negative for chest pain, palpitations and leg swelling. Genitourinary: Positive for flank pain (intermittent). Allergic/Immunologic: Negative for environmental allergies, food allergies and immunocompromised state. Psychiatric/Behavioral: Negative for agitation, behavioral problems and confusion. Physical Exam Constitutional: Appearance: He is not ill-appearing or diaphoretic. Cardiovascular: Rate and Rhythm: Normal rate. Pulses: Normal pulses. Pulmonary: Effort: Pulmonary effort is normal. No respiratory distress. Breath sounds: Normal breath sounds. No stridor. No wheezing, rhonchi or rales. Chest: Chest wall: No tenderness. Neurological: General: No focal deficit present. Mental Status: He is alert. Physical Exam Vitals: 10/10/22 1242 10/10/22 1243 BP: 108/74 BP Location: Left arm Right arm Patient Position: Sitting Sitting BP Cuff Size: Adult Adult Pulse: 78 Resp: 18 SpO2: 93% Weight: 234 lb 12.8 oz (107 kg) Height: 6' 2 (1.88 m) LABS and Studies: Available studies were reviewed [x] IgE reviewed [x] Peripheral eosinophils reviewed [x] Radiology: available imaging reviewed personally [x] === 09/14/22 === CT ABDOMEN PELVIS WO IV CONTRAST - Impression - 1. No evidence for calcified collecting system calculi or obstruction. 2. Diffuse fatty metamorphosis of liver. 3. Probable simple appearing bilateral renal cysts. 4. No evidence of mass, lymphadenopathy or inflammatory process. 5. Small hiatal hernia. Report Dictated on Electronically Signed By: Adam Gordillo MD Electronically Signed Date/Time: 09/14/2022 7:58 PM EDT PFT's : available [] Pulmonary Functions Testing Results: No results found for: FEV1, FVC, [id number], TLC, DLCO Orders Placed This Encounter Procedures CT lung screening low dose Standing Status: Future Standing Expiration Date: 10/11/2023 Order Specific Question: What is the patient's sedation requirement? Answer: No Sedation Order Specific Question: For this exam, the patient must be between 50-80 years of age. Does this patient meet that criteria? Answer: Yes Order Specific Question: Does the patient show any signs or symptoms of lung cancer? Answer: No Order Specific Question: Is this the first (baseline) CT or an annual exam? Answer: Baseline [1] Order Specific Question: What is the patient's current smoking status? Answer: Former Smoker Order Specific Question: How many years ago did the patient quit smoking? (must be <15 years) Answer: 1 Order Specific Question: What is the patient's total pack years? (must be at least 20 pack years) Answer: 30 Order Specific Question: Is there documentation of shared decision making? Answer: Yes Order Specific Question: Has it been at least 11 months since the patient's last CT scan? Answer: Yes Complete PFT pre and post bronchodilator Standing Status: Future Standing Expiration Date: 10/11/2023 Tobacco Use: Medium Risk (10/10/2022) Patient History Smoking Tobacco Use: Former Smokeless Tobacco Use: Never Passive Exposure: Not on file Counseling given: Not Answered No results found for: CBCDIF, QAFUMIGATUS Eosinophils Absolute Date Value Ref Range Status 09/17/2022 0.1 0.0 - 0.5 10*3/uL Final 09/14/2022 0.2 0.0 - 0.5 10*3/uL Final The USPSTF recommends annual screening for lung cancer with low-dose computed tomography (LDCT) in adults aged 50 to 80 years who have a 20 pack-year smoking history and currently smoke or have quit within the past 15 years. Screening should be discontinued once a person has not smoked for 15 yearsor develops a health problem that substantially limits life expectancy or the ability or willingness to have curative lung surgery. Patient meets criteria [x] Orders Placed This Encounter Procedures CT lung screening low dose Complete PFT pre and post bronchodilator documented in this [facility]08-16-2023 Instructions* Patient Instructions* Danae Dudley MA - 10/10/2022 1:00 PM EDT YOUR APPOINTMENT TODAY WAS WITH THE [facility], COPD CLINIC, PULMONARY AND SLEEP MEDICINE OFFICE. PLEASE CALL OUR OFFICE AT [phone] IF YOU HAVE NOT RECEIVED YOUR TEST RESULTS 7 DAYS AFTER TESTING IS COMPLETED. PLEASE REMEMBER TO REQUEST REFILLS AT YOUR OFFICE VISITS. PHONE/FAX REQUESTS REQUIRE 48-72 HOURS FOR RESPONSE. A FRIENDLY REMINDER COPAYS ARE DUE AT TIME OF SERVICE. THANK YOU. Our Patients Are Important! We want to improve and you can help. After your visit we want you to feel: Listened to, Respected and have your health care explained. You may receive a survey asking you about your visit. Please complete the survey. We will use your feedback to make improvements. COVID-19 VACCINATION INFORMATION: PH. [phone] [email or web address] [facility] Central Scheduling [phone] [facility] Sleep Scheduling [phone] documented in this [facility]07-23-2023 Telephone encounter Note* Telephone Encounter - FELISHA Naylor CNP - 09/16/2022 12:34 PM EDT Reviewed urine culture results with patient. Urine culture resistant to multiple organisms. Stop cephalexin started recently and start nitrofurantoin 100 mg twice daily x 7 days[id number] Miscellaneous Notes* Telephone Encounter - FELISHA Naylor CNP - 09/16/2022 12:34 PM EDT Reviewed urine culture results with patient. Urine culture resistant to multiple organisms. Stop cephalexin started recently and start nitrofurantoin 100 mg twice daily x 7 days. documented in this [facility]07-20-2023 Evaluation + Plan note* Assessment & Plan Note - FELISHA Naylor CNP - 09/13/2022 12:57 PM EDTAssociated Problem(s): Urinary tract infection symptoms UA trace blood, + leukocytes. Send for culture. We will wait for urine culture results. No fever orchills. CT of abd/pelvis next week. Has bee referred to urology. Go to ER for development of fever, chills, n/v. Increased flank pain [id number] Miscellaneous Notes* Assessment & Plan Note - FELISHA Naylor CNP - 09/13/2022 12:57 PM EDTAssociated Problem(s): Urinary tract infection symptoms UA trace blood, + leukocytes. Send for culture. We will wait for urine culture results. No fever orchills. CT of abd/pelvis next week. Has bee referred to urology. Go to ER for development of fever, chills, n/v. Increased flank pain documented in this [facility]07-20-2023 History of Present illness Narrative* Paloma Holland - 09/13/2022 11:40 AM EDT Patient identified by name and date of . Urine specimen cup labeled with patient name and dateof . Urine cup and wipe given to patient. Clean catch urine collected from patient. POCT Urineordered and signed by provider. POCT urine results entered and were sent to provider. Urine culture was ordered and signed by provider. Urine culture was obtained and specimen tube was labeled with patients name and date of , requisition was printed off, verified patient information, then given to [facility]. * FELISHA Naylor CNP - 09/13/2022 11:40 AM EDT Images from the original note were not included. 09/13/2022 Jaylen Queen (: 1960) is a 62 y.o. male , Established patient, here for evaluation of thefollowing chief complaint(s): Back Pain Urinary symptoms ASSESSMENT/PLAN: 1. Urinary tract infection symptoms Assessment & Plan: UA trace blood, + leukocytes. Send for culture. We will wait for urine culture results. No fever orchills. CT of abd/pelvis next week. Has bee referred to urology. Go to ER for development of fever, chills, n/v. Increased flank pain Orders: - POCT urinalysis dipstick manually resulted - Urine culture (clean catch) Follow up for as directed pending test results. SUBJECTIVE/OBJECTIVE: HPI - Jaylen Queen (: 1960) is a 62 y.o. male , Established patient, here for the evaluation ofthe following chief complaint(s): Back Pain Presents for recurrent right flank pain and urinary symptoms. Has had multiple UTIs in the past year. Most recently 08/17/2022- multi drug resistant ecoli. Completed Augmentin 7 day course earlier this month. Recently started having dysuria, urgency and right flank pain again. No fever or chills. Has CT scheduled for next week. Has been referred to urology. Prior to Admission medications Medication Sig Start Date End Date Taking? Authorizing Provider cabergoline (Dostinex) 0.5 MG tablet take 1 1/2 tablet by mouth ON SATURDAY AND Saturday08/22/22 YesLake Perales MD fenofibrate (Triglide) 160 MG tablet take 1 tablet by mouth once daily 07/04/22 Yes FELISHA Jeronimo CNP levothyroxine (Synthroid, Levoxyl) 100 MCG tablet Take 1 tablet (100 mcg) by mouth daily. 03/13/22 Yes Rocio Ruiz MD niacin (Niaspan) 1000 MG ER tablet Take 1 tablet (1,000 mg) by mouth daily. 05/07/22 Yes Lake Perales MD rosuvastatin (Crestor) 10 MG tablet Take 1 tablet (10 mg) by mouth daily. 05/07/22 Yes Lake Lang MD tadalafil (Cialis) 20 MG tablet Take 1 tablet (20 mg) by mouth Daily as needed for erectile dysfunction. 08/17/22 08/17/23 Yes FELISHA Jeronimo CNP Review of Systems Constitutional: Negative for activity change, appetite change, chills, fatigue and fever. Respiratory: Negative. Cardiovascular: Negative. Gastrointestinal: Negative. Genitourinary: Positive for dysuria, flank pain and urgency. Negative for difficulty urinating, frequency and hematuria. Neurological: Negative. Vitals: 09/13/22 1146 BP: 138/80 Pulse: 68 Resp: 20 Temp: 36.8 C (98.2 F) TempSrc: Oral Weight: 237 lb 12.8 oz (108 kg) Physical Exam Constitutional: General: He is not in acute distress. Appearance: Normal appearance. He is not ill-appearing. Cardiovascular: Rate and Rhythm: Normal rate and regular rhythm. Pulmonary: Effort: Pulmonary effort is normal. Breath sounds: Normal breath sounds. Abdominal: Tenderness: There is no right CVA tenderness or left CVA tenderness. Neurological: General: No focal deficit present. Mental Status: He is alert and oriented to person, place, and time. An electronic signature was used to authenticate this note. FELISHA Naylor CNP 09/13/2022 11:54 AM documented in this [facility]07-20-2023 Instructions* Patient Instructions* FELISHA Naylor CNP - 09/13/2022 11:40 AM EDT I will call you on Saturday to update on urine culture. documented in this [facility]06-28-2023 Telephone encounter Note* Telephone Encounter - Nelli Lama MA - 08/22/2022 1:29 PM EDT Prescription Request: Last medication check: 08/03/21 Last physical exam: 02/06/22 Next scheduled appointment: 02/14/23 Last date of refill on this medication 04/04/22 [id number] Miscellaneous Notes* Telephone Encounter - Nelli Lama MA - 08/22/2022 1:29 PM EDT Prescription Request: Last medication check: 08/03/21 Last physical exam: 02/06/22 Next scheduled appointment: 02/14/23 Last date of refill on this medication 04/04/22 36 tablets 1 refill documented in this [facility]06-23-2023 History of Present illness Narrative* FELISHA Jeronimo CNP - 08/17/2022 8:20 AM EDT Images from the original note were not included. 08/17/2022 Jaylen Queen (: 1960) is a 61 y.o. male , Established patient, here for evaluation of thefollowing chief complaint(s): lower back pain ASSESSMENT/PLAN: 1. Recurrent UTI - Urine culture (clean catch) - sulfamethoxazole-trimethoprim (Bactrim DS) 800-160 MG tablet; Take 1 tablet by mouth 2 times daily for 10 days., Starting Sat08/17/2022, Until Sat08/27/2022, Normal - UA positive for blood and leukocytes. Will start on an antibiotic and send urine for culture. - Discussed signs and symptoms warranting immediate attention- verbalized understanding. - Follow up with urology as directed. 2. Dysuria - POCT Urinalysis dipstick - Urine culture (clean catch) - sulfamethoxazole-trimethoprim (Bactrim DS) 800-160 MG tablet; Take 1 tablet by mouth 2 times daily for 10 days., Starting Sat08/17/2022, Until Sat08/27/2022, Normal 3. Urinary frequency - POCT Urinalysis dipstick - Urine culture (clean catch) - sulfamethoxazole-trimethoprim (Bactrim DS) 800-160 MG tablet; Take 1 tablet by mouth 2 times daily for 10 days., Starting Sat08/17/2022, Until Sat08/27/2022, Normal 4. Urinary urgency - POCT Urinalysis dipstick - Urine culture (clean catch) - sulfamethoxazole-trimethoprim (Bactrim DS) 800-160 MG tablet; Take 1 tablet by mouth 2 times daily for 10 days., Starting Sat08/17/2022, Until Sat08/27/2022, Normal 5. Chronic right-sided low back pain without sciatica - Discussed symptoms potentially being related to ongoing bladder infections and/or being musculoskeletal in origin. - Discussed signs and symptoms warranting immediate attention- verbalized understanding. - May take Tylenol or Motrin as needed for pain. 6. Leukocytes in urine - Urine culture (clean catch) - sulfamethoxazole-trimethoprim (Bactrim DS) 800-160 MG tablet; Take 1 tablet by mouth 2 times daily for 10 days., Starting Sat08/17/2022, Until Sat08/27/2022, Normal 7. Hematuria, unspecified type - Urine culture (clean catch) - sulfamethoxazole-trimethoprim (Bactrim DS) 800-160 MG tablet; Take 1 tablet by mouth 2 times daily for 10 days., Starting Sat08/17/2022, Until 08/27/2022, Normal Follow up for follow up if needed- needs physical scheduled for January. SUBJECTIVE/OBJECTIVE: LUIS York presents today with concerns of low back pain with urinary urgency and frequency. Symptoms have been worsening over the past week. Has had issues with recurrent bladder infections and is worried this may the cause. Denies fevers, visible blood in the urine, or abdominal pain. Had a CT ordered of the lumbar spine in February of this year that was denied by his insurance. PT was recommended and he declined at that time since pain had improved. Had a referral placed with urology in January of 2022 due to issues with recurrent UTI's and is scheduled to see someone in November. See ROS for additional information. Review of Systems Constitutional: Negative for chills and fever. Respiratory: Negative for chest tightness and shortness of breath. Cardiovascular: Negative for chest pain. Gastrointestinal: Negative for abdominal distention, abdominal pain, nausea and vomiting. Genitourinary: Positive for dysuria, frequency and urgency. Negative for flank pain. Vitals: 08/17/22 0817 BP: 122/76 Pulse: 59 SpO2: 98% Weight: 236 lb (107 kg) Height: 6' 2 (1.88 m) Body mass index is 30.3 kg/m . Physical Exam Constitutional: General: He is not in acute distress. Appearance: He is not ill-appearing or diaphoretic. Cardiovascular: Rate and Rhythm: Normal rate and regular rhythm. Heart sounds: Normal heart sounds. No murmur heard. No friction rub. Pulmonary: Effort: Pulmonary effort is normal. Breath sounds: Normal breath sounds. No wheezing, rhonchi or rales. Abdominal: General: Bowel sounds are normal. There is no distension. Palpations: Abdomen is soft. There is no mass. Tenderness: There is no abdominal tenderness. There is no right CVA tenderness or left CVA tenderness. Musculoskeletal: Arms: Skin: General: Skin is warm and dry. Coloration: Skin is not pale. Findings: No erythema. Neurological: Mental Status: He is alert and oriented to person, place, and time. Psychiatric: Mood and Affect: Mood normal. Behavior: Behavior normal. Thought Content: Thought content normal. Judgment: Judgment normal. An electronic signature was used to authenticate this note. FELISHA Jeronimo CNP 08/17/2022 8:44 AM documented in this [facility]06-23-2023 History of Present illness Narrative* FELISHA Jeronimo CNP - 08/17/2022 8:20 AM EDT Images from the original note were not included. 08/17/2022 Jaylen Quene (: 1960) is a 61 y.o. male , Established patient, here for evaluation of thefollowing chief complaint(s): lower back pain ASSESSMENT/PLAN: 1. Recurrent UTI - Urine culture (clean catch) - sulfamethoxazole-trimethoprim (Bactrim DS) 800-160 MG tablet; Take 1 tablet by mouth 2 times daily for 10 days., Starting Sat08/17/2022, Until Sat08/27/2022, Normal - UA positive for blood and leukocytes. Will start on an antibiotic and send urine for culture. - Discussed signs and symptoms warranting immediate attention- verbalized understanding. - Follow up with urology as directed. 2. Dysuria - POCT Urinalysis dipstick - Urine culture (clean catch) - sulfamethoxazole-trimethoprim (Bactrim DS) 800-160 MG tablet; Take 1 tablet by mouth 2 times daily for 10 days., Starting Sat08/17/2022, Until Sat08/27/2022, Normal 3. Urinary frequency - POCT Urinalysis dipstick - Urine culture (clean catch) - sulfamethoxazole-trimethoprim (Bactrim DS) 800-160 MG tablet; Take 1 tablet by mouth 2 times daily for 10 days., Starting Sat08/17/2022, Until Sat08/27/2022, Normal 4. Urinary urgency - POCT Urinalysis dipstick - Urine culture (clean catch) - sulfamethoxazole-trimethoprim (Bactrim DS) 800-160 MG tablet; Take 1 tablet by mouth 2 times daily for 10 days., Starting Sat08/17/2022, Until Sat08/27/2022, Normal 5. Chronic right-sided low back pain without sciatica - Discussed symptoms potentially being related to ongoing bladder infections and/or being musculoskeletal in origin. - Discussed signs and symptoms warranting immediate attention- verbalized understanding. - May take Tylenol or Motrin as needed for pain. 6. Leukocytes in urine - Urine culture (clean catch) - sulfamethoxazole-trimethoprim (Bactrim DS) 800-160 MG tablet; Take 1 tablet by mouth 2 times daily for 10 days., Starting Sat08/17/2022, Until Sat08/27/2022, Normal 7. Hematuria, unspecified type - Urine culture (clean catch) - sulfamethoxazole-trimethoprim (Bactrim DS) 800-160 MG tablet; Take 1 tablet by mouth 2 times daily for 10 days., Starting Sat08/17/2022, Until Sat08/27/2022, Normal Follow up for follow up if needed- needs physical scheduled for January. SUBJECTIVE/OBJECTIVE: LUIS York presents today with concerns of low back pain with urinary urgency and frequency. Symptoms have been worsening over the past week. Has had issues with recurrent bladder infections and is worried this may the cause. Denies fevers, visible blood in the urine, or abdominal pain. Had a CT ordered of the lumbar spine in February of this year that was denied by his insurance. PT was recommended and he declined at that time since pain had improved. Had a referral placed with urology in January of 2022 due to issues with recurrent UTI's and is scheduled to see someone in November. See ROS for additional information. Review of Systems Constitutional: Negative for chills and fever. Respiratory: Negative for chest tightness and shortness of breath. Cardiovascular: Negative for chest pain. Gastrointestinal: Negative for abdominal distention, abdominal pain, nausea and vomiting. Genitourinary: Positive for dysuria, frequency and urgency. Negative for flank pain. Vitals: 08/17/22 0817 BP: 122/76 Pulse: 59 SpO2: 98% Weight: 236 lb (107 kg) Height: 6' 2 (1.88 m) Body mass index is 30.3 kg/m . Physical Exam Constitutional: General: He is not in acute distress. Appearance: He is not ill-appearing or diaphoretic. Cardiovascular: Rate and Rhythm: Normal rate and regular rhythm. Heart sounds: Normal heart sounds. No murmur heard. No friction rub. Pulmonary: Effort: Pulmonary effort is normal. Breath sounds: Normal breath sounds. No wheezing, rhonchi or rales. Abdominal: General: Bowel sounds are normal. There is no distension. Palpations: Abdomen is soft. There is no mass. Tenderness: There is no abdominal tenderness. There is no right CVA tenderness or left CVA tenderness. Musculoskeletal: Arms: Skin: General: Skin is warm and dry. Coloration: Skin is not pale. Findings: No erythema. Neurological: Mental Status: He is alert and oriented to person, place, and time. Psychiatric: Mood and Affect: Mood normal. Behavior: Behavior normal. Thought Content: Thought content normal. Judgment: Judgment normal. An electronic signature was used to authenticate this note. FELISHA Jeronimo CNP 08/17/2022 8:44 AM documented in this [facility]06-23-2023 Miscellaneous Notes* Addendum Note - FELISHA Jeronimo CNP - 08/17/2022 8:20 AM EDTAddended by: VENTURA RIVAS on: 08/20/2022 09:36 AM Modules accepted: Orders documented in this [facility]06-23-2023 Note* Addendum Note - FELISHA Jeronimo CNP - 08/17/2022 8:20 AM EDTAddended by: VENTURA RIVAS on: 08/20/2022 09:36 AM Modules accepted: [id number] Telephone encounter Note* Telephone Encounter - FELISHA Jeronimo CNP - 07/04/2022 3:57 PM EDT Rx sent. Follow up as scheduled. [id number] Miscellaneous Notes* Telephone Encounter - FELISHA Jeronimo CNP - 07/04/2022 3:57 PM EDT Rx sent. Follow up as scheduled. * Telephone Encounter - Mary Garcia MA - 07/04/2022 3:20 PM EDT Prescription Request: Last medication check: 08/03/21 Last physical exam: 02/06/22 Next scheduled appointment: 08/06/22 CSA on file (date): na Last urine drug screen: na Last date of refill on this medication 10/16/21 documented in this [facility]05-10-2023 Telephone encounter Note* Telephone Encounter - Mary Garcia MA - 07/04/2022 3:20 PM EDT Prescription Request: Last medication check: 08/03/21 Last physical exam: 02/06/22 Next scheduled appointment: 08/06/22 CSA on file (date): na Last urine drug screen: na Last date of refill on this medication 10/16/21 [id number] Evaluation + Plan note* Assessment & Plan Note - Lake Perales MD - 06/19/2022 4:16 PM EDTAssociated Problem(s): Combined arterial insufficiency and corporo-venous occlusive erectile dysfunction Prescription for Cialis 20 mg printed so he can shop around for the best ruiz. [facility] [id number] Miscellaneous Notes* Assessment & Plan Note - Lake Perales MD - 06/19/2022 4:16 PM EDTAssociated Problem(s): Combined arterial insufficiency and corporo-venous occlusive erectile dysfunction Prescription for Cialis 20 mg printed so he can shop around for the best ruiz. documented in this [facility]04-25-2023 Miscellaneous Notes* Assessment & Plan Note - Lake Perales MD - 06/19/2022 4:16 PM EDT Associated Problem(s): Combined arterial insufficiency and corporo-venous occlusive erectile dysfunction Prescription for Cialis 20 mg printed so he can shop around for the best ruiz. * Addendum Note - Lake Perales MD - 06/19/2022 1:45 PM EDTAddended by: LAKE PERALES on: 06/21/2022 03:52 PM Modules accepted: Level of Service documented in this [facility]04-25-2023 History of Present illness Narrative* Nelly Correia MA - 06/19/2022 1:45 PM EDT Patient verified by last name and date of . Patient wants a revenue collector in the room during during the visit. no [employer] na * Lake Perales MD - 06/19/2022 1:45 PM EDT Images from the original note were not included. 06/19/2022 Jaylen Queen (: 1960) is a 61 y.o. male , Established patient, here for evaluation of thefollowing chief complaint(s): Erectile Dysfunction (Per pt problem in the bedroom) ASSESSMENT/PLAN: 1. Combined arterial insufficiency and corporo-venous occlusive erectile dysfunction Assessment & Plan: Prescription for Cialis 20 mg printed so he can shop around for the best ruiz. Follow up if symptoms worsen or fail to improve. SUBJECTIVE/OBJECTIVE: LUIS Burnett comes in today interested in medication for erectile dysfunction says he is having some trouble in the bedroom. He says that he tried some Viagra that he got on line 50 mg and he had to take 1-1/2 of it for it to do anything. He is wondering if there is anything he can take on a daily basis or if there is anything that will last longer and be more convenient. Review of Systems Vitals: 06/19/22 1348 BP: 139/82 Pulse: 75 Weight: 238 lb 12.8 oz (108 kg) Height: 6' 2 (1.88 m) Physical Exam Vitals and nursing note reviewed. Constitutional: General: He is not in acute distress. Appearance: Normal appearance. He is obese. Neurological: Mental Status: He is alert. An electronic signature was used to authenticate this note. Lake Perales MD 06/19/2022 4:17 PM documented in this [facility]04-25-2023 History of Present illness Narrative* Nelly Correia MA - 06/19/2022 1:45 PM EDT Patient verified by last name and date of . Patient wants a revenue collector in the room during during the visit. no [employer] na * Lake Perales MD - 06/19/2022 1:45 PM EDT Images from the original note were not included. 06/19/2022 Jaylen Queen (: 1960) is a 61 y.o. male , Established patient, here for evaluation of thefollowing chief complaint(s): Erectile Dysfunction (Per pt problem in the bedroom) ASSESSMENT/PLAN: 1. Combined arterial insufficiency and corporo-venous occlusive erectile dysfunction Assessment & Plan: Prescription for Cialis 20 mg printed so he can shop around for the best ruiz. Follow up if symptoms worsen or fail to improve. SUBJECTIVE/OBJECTIVE: LUIS Hamiltonian comes in today interested in medication for erectile dysfunction says he is having some trouble in the bedroom. He says that he tried some Viagra that he got on line 50 mg and he had to take 1-1/2 of it for it to do anything. He is wondering if there is anything he can take on a daily basis or if there is anything that will last longer and be more convenient. Review of Systems Vitals: 06/19/22 1348 BP: 139/82 Pulse: 75 Weight: 238 lb 12.8 oz (108 kg) Height: 6' 2 (1.88 m) Physical Exam Vitals and nursing note reviewed. Constitutional: General: He is not in acute distress. Appearance: Normal appearance. He is obese. Neurological: Mental Status: He is alert. An electronic signature was used to authenticate this note. Lake Perales MD 06/21/2022 3:52 PM documented in this [facility]04-25-2023 Note* Addendum Note - Lake Perales MD - 06/19/2022 1:45 PM EDTAddended by: LAKE PERALES on: 06/21/2022 03:52 PM Modules accepted: Level of Service [facility] [id number] Evaluation + Plan note* Assessment & Plan Note - Lake Perales MD - 05/17/2022 12:42 PM EDTAssociated Problem(s): Right flank pain Recurrent flank pain. Urinalysis shows trace of blood and leukocytes, will send for culture and start him on Bactrim. [facility] [id number] Miscellaneous Notes* Assessment & Plan Note - Lake Perales MD - 05/17/2022 12:42 PM EDTAssociated Problem(s): Right flank pain Recurrent flank pain. Urinalysis shows trace of blood and leukocytes, will send for culture and start him on Bactrim. documented in this [facility]03-23-2023 History of Present illness Narrative* Paloma Holland - 05/17/2022 11:45 AM EDT [employer] for Intimate and Non Intimate Exam [employer] was declined [employer]: na * Lake Perales MD - 05/17/2022 11:45 AM EDT Images from the original note were not included. 05/17/2022 Jaylen Queen (: 1960) is a 61 y.o. male , Established patient, here for evaluation of thefollowing chief complaint(s): Back Pain (Wants to check for a UTI before leaving out of state) ASSESSMENT/PLAN: 1. Right flank pain Assessment & Plan: Recurrent flank pain. Urinalysis shows trace of blood and leukocytes, will send for culture and start him on Bactrim. Orders: - POCT urinalysis dipstick manually resulted - Urine culture Follow up if symptoms worsen or fail to improve. SUBJECTIVE/OBJECTIVE: HPI -Jaylen comes in today for follow-up on a problem he has had in the past that has resolved and now is reoccurred this is pain in his right lower back. In the past he has had a urinary tract infection but that was resolved and he still had the pain but he is sure that this is not muscle, we have done ultrasounds and CT scans of his abdomen and pelvis and we had attempted to get a ultrasound of his lumbar spine but his insurance would not cover it. Review of Systems Constitutional: Negative for chills and fever. Respiratory: Negative for shortness of breath. Cardiovascular: Negative for chest pain and palpitations. Gastrointestinal: Negative for abdominal pain, blood in stool, constipation and diarrhea. Genitourinary: Positive for flank pain. Negative for dysuria, frequency, hematuria and urgency. Vitals: 05/17/22 1146 BP: 122/67 Pulse: 67 Resp: 20 Physical Exam Vitals and nursing note reviewed. Constitutional: General: He is not in acute distress. Appearance: Normal appearance. HENT: Head: Normocephalic. Mouth/Throat: Mouth: Mucous membranes are moist. Pharynx: Oropharynx is clear. Eyes: Extraocular Movements: Extraocular movements intact. Pupils: Pupils are equal, round, and reactive to light. Cardiovascular: Rate and Rhythm: Normal rate and regular rhythm. Heart sounds: Normal heart sounds. Pulmonary: Effort: Pulmonary effort is normal. Breath sounds: Normal breath sounds. Abdominal: General: Bowel sounds are normal. Palpations: Abdomen is soft. Tenderness: There is no right CVA tenderness or left CVA tenderness. Musculoskeletal: Cervical back: Neck supple. Comments: Some mild tenderness to palpation just below the ribs on the right side of the back in the lumbar region. He has normal range of motion of his back Neurological: Mental Status: He is alert. An electronic signature was used to authenticate this note. Lake Perales MD 05/17/2022 12:43 PM documented in this [facility]02-02-2023 Telephone encounter Note* Telephone Encounter - Dino Mckoy - 03/29/2022 4:39 PM EST [facility] closed [id number] Miscellaneous Notes* Telephone Encounter - Dino Mckoy - 03/29/2022 4:39 PM EST Order closed * Telephone Encounter - Lake Perales MD - 03/27/2022 3:21 PM EST Okay, thank you okay to cancel the CT scan * Telephone Encounter - Nelli Lama - 03/27/2022 3:01 PM EST Patient notified, said he is not having any pain right now and doesn't think physical therapy is necessary. * Addendum Note - Lake Perales MD - 03/27/2022 1:05 PM ESTAddended by: LAKE PERALES on: 03/27/2022 01:05 PM Modules accepted: Orders * Telephone Encounter - Lake Perales MD - 03/27/2022 1:03 PM EST We will need to contact patient to get him into physical therapy, referral done * Telephone Encounter - Dino Mckoy - 03/27/2022 10:15 AM EST How do you want to proceed with this denial? Okay to close orders? * Telephone Encounter - Dino Mckoy - 03/23/2022 12:[address]-Lumbar was denied due to: maging requires six weeks of provider directed treatment to be completed. Supported treatments include (but are not limited to) drugs for swelling or pain, an in office workout (physical therapy), and/or oral or injected steroids. This must have been completed in the past three months without improved symptoms. Contact (via office visit, phone, email, or messaging) must occur after the treatment is completed. This has not been met because: You have not completed six weeks of provider directed treatment. The provider directed treatment did not occur within the last three months. Symptoms must be the same or worse after treatment to support imaging. There was no contact with your provider after completing treatment. * Telephone Encounter - Dino Conroy - 03/22/2022 12:50 PM EST Name of caller: Sima( [employer] ) Contact phone number: Apt 4 Relationship to Patient: pt Provider: Practice: [facility] Chief Complaint/Reason for Call: Caller is stating that [employer] Auth for CT has been denied please ref [id number] as they will also be sending a fax Best time of day caller can be reached: any Patient advised that office/PCP has 24-48 business hours to return their call: No documented in this [facility]01-31-2023 Telephone encounter Note* Telephone Encounter - Lake Perales MD - 03/27/2022 3:21 PM EST Okay, thank you okay to cancel the CT scan [id number] Miscellaneous Notes* Telephone Encounter - Lake Perales MD - 03/27/2022 3:21 PM EST Okay, thank you okay to cancel the CT scan * Telephone Encounter - Nelli Lama - 03/27/2022 3:01 PM EST Patient notified, said he is not having any pain right now and doesn't think physical therapy is necessary. * Addendum Note - Lake Perales MD - 03/27/2022 1:05 PM ESTAddended by: LAKE PERALES on: 03/27/2022 01:05 PM Modules accepted: Orders * Telephone Encounter - Lake Perales MD - 03/27/2022 1:03 PM EST We will need to contact patient to get him into physical therapy, referral done * Telephone Encounter - Dino Mckoy - 03/27/2022 10:15 AM EST How do you want to proceed with this denial? Okay to close orders? * Telephone Encounter - Dino Mckoy - 03/23/2022 12:[address]-Lumbar was denied due to: maging requires six weeks of provider directed treatment to be completed. Supported treatments include (but are not limited to) drugs for swelling or pain, an in office workout (physical therapy), and/or oral or injected steroids. This must have been completed in the past three months without improved symptoms. Contact (via office visit, phone, email, or messaging) must occur after the treatment is completed. This has not been met because: You have not completed six weeks of provider directed treatment. The provider directed treatment did not occur within the last three months. Symptoms must be the same or worse after treatment to support imaging. There was no contact with your provider after completing treatment. * Telephone Encounter - Dino Conroy - 03/22/2022 12:50 PM EST Name of caller: Sima( [employer]om[employer] ) Contact phone number: Apt 4 Relationship to Patient: pt [facility] Chief Complaint/Reason for Call: Caller is stating that [employer] Auth for CT has been denied please ref [id number] as they will also be sending a fax Best time of day caller can be reached: any Patient advised that office/PCP has 24-48 business hours to return their call: No documented in this [facility]01-31-2023 Telephone encounter Note* Telephone Encounter - Nelli Lama - 03/27/2022 3:01 PM EST Patient notified, said he is not having any pain right now and doesn't think physical therapy is necessary. [id number] Note* Addendum Note - Lake Perales MD - 03/27/2022 1:05 PM ESTAddended by: LAKE PERALES on: 03/27/2022 01:05 PM Modules accepted: Orders [id number] Note* Addendum Note - Lake Perales MD - 03/27/2022 1:05 PM ESTAddended by: LAKE PERALES on: 03/27/2022 01:05 PM Modules accepted: Orders [facility] [id number] Note* Addendum Note - Lake Perales MD - 03/27/2022 1:05 PM ESTAddended by: LAKE PERALES on: 03/27/2022 01:05 PM Modules accepted: Orders [facility] [id number] Note* Addendum Note - Lake Perales MD - 03/27/2022 1:05 PM ESTAddended by: LAKE PERALES on: 03/27/2022 01:05 PM Modules accepted: Orders [facility] [id number] Note* Addendum Note - Lake Perales MD - 03/27/2022 1:05 PM ESTAddended by: LAKE PERALES on: 03/27/2022 01:05 PM Modules accepted: Orders [facility] [id number] Telephone encounter Note* Telephone Encounter - Lake Perales MD - 03/27/2022 1:03 PM EST We will need to contact patient to get him into physical therapy, referral done [facility]01-31-2023 Telephone encounter Note* Telephone Encounter - Dino Mckoy - 03/27/2022 10:15 AM EST How do you want to proceed with this denial? Okay to close orders? [facility]01-27-2023 Telephone encounter Note* Telephone Encounter - Dino Mckoy - 03/23/2022 12:[address]-Lumbar was denied due to: maging requires six weeks of provider directed treatment to be completed. Supported treatments include (but are not limited to) drugs for swelling or pain, an in office workout (physical therapy), and/or oral or injected steroids. This must have been completed in the past three months without improved symptoms. Contact (via office visit, phone, email, or messaging) must occur after the treatment is completed. This has not been met because: You have not completed six weeks of provider directed treatment. The provider directed treatment did not occur within the last three months. Symptoms must be the same or worse after treatment to support imaging. There was no contact with your provider after completing treatment. [facility]01-27-2023 Miscellaneous Notes* Telephone Encounter - Dino Mckoy - 03/23/2022 12:[address]-Lumbar was denied due to: maging requires six weeks of provider directed treatment to be completed. Supported treatments include (but are not limited to) drugs for swelling or pain, an in office workout (physical therapy), and/or oral or injected steroids. This must have been completed in the past three months without improved symptoms. Contact (via office visit, phone, email, or messaging) must occur after the treatment is completed. This has not been met because: You have not completed six weeks of provider directed treatment. The provider directed treatment did not occur within the last three months. Symptoms must be the same or worse after treatment to support imaging. There was no contact with your provider after completing treatment. * Telephone Encounter - Dino Conroy - 03/22/2022 12:50 PM EST Name of caller: Sima( [employer] ) Contact phone number: Apt 4 Relationship to Patient: pt Provider: Practice: [facility] Chief Complaint/Reason for Call: Caller is stating that [employer] Auth for CT has been denied please ref [id number] as they will also be sending a fax Best time of day caller can be reached: any Patient advised that office/PCP has 24-48 business hours to return their call: No documented in this [id number] Telephone encounter Note* Telephone Encounter - Dino Conroy - 03/22/2022 12:50 PM EST Name of caller: Sima( [employer] ) Contact phone number: Apt 4 Relationship to Patient: pt Provider: Practice: [facility] Chief Complaint/Reason for Call: Caller is stating that [employer] Auth for CT has been denied please ref [id number] as they will also be sending a fax Best time of day caller can be reached: any Patient advised that office/PCP has 24-48 business hours to return their call: No [id number] Miscellaneous Notes* Telephone Encounter - Dino Conroy - 03/22/2022 12:50 PM EST Name of caller: Sima( [employer] ) Contact phone number: Apt 4 Relationship to Patient: pt Provider: Practice: [facility] Chief Complaint/Reason for Call: Caller is stating that [employer] Auth for CT has been denied please ref [id number] as they will also be sending a fax Best time of day caller can be reached: any Patient advised that office/PCP has 24-48 business hours to return their call: No documented in this [facility]01-17-2023 Telephone encounter Note* Telephone Encounter - Deepa Burrell - 03/13/2022 7:36 AM EST Medication name: Levothyroxine Synthroid Levoxyl 100 MCG Tablet Medication dosage: 100 mcg (Micrograms) Monthly quantity needed: 90 How many day supply requestin days Medication route: oral (PO) Medication administration time(s): daily If taking medication PRN, reason for taking medication: N/A If this is a controlled substance do you receive this or any other controlled medication from any other doctor or facility: N/A Ordering provider: Dr Perales Date of last office visit: 03.06.22 Date of next office visit: 08.06.22 Date of last refill: (see medication tab): 02.13.21 Updated/Validated preferred pharmacy: Yes Patient instructed to contact the pharmacy prior to picking up the medication: Yes [id number] Miscellaneous Notes* Telephone Encounter - Deepa Burrell - 03/13/2022 7:36 AM EST Medication name: Levothyroxine Synthroid Levoxyl 100 MCG Tablet Medication dosage: 100 mcg (Micrograms) Monthly quantity needed: 90 How many day supply requestin days Medication route: oral (PO) Medication administration time(s): daily If taking medication PRN, reason for taking medication: N/A If this is a controlled substance do you receive this or any other controlled medication from any other doctor or facility: N/A Ordering provider: Dr Perales Date of last office visit: 03.06.22 Date of next office visit: 08.06.22 Date of last refill: (see medication tab): 02.13.21 Updated/Validated preferred pharmacy: Yes Patient instructed to contact the pharmacy prior to picking up the medication: Yes documented in this [facility]01-10-2023 Evaluation + Plan note* Assessment & Plan Note - Lake Perales MD - 03/06/2022 3:45 PM EST Associated Problem(s): Right flank pain Since this is a recurrent problem and we have not been able to find an exact cause for his back pain, I feel that it warrants a CT scan of his back the spine of the lumbar region and also the musclesand the abdominal contents. Nabumetone 750 mg twice a day with food. Baclofen 10 mg 3 times a day as needed caution about working or driving with this medicine. [facility] [id number] Miscellaneous Notes* Assessment & Plan Note - Lake Perales MD - 03/06/2022 3:45 PM ESTAssociated Problem(s): Right flank pain Since this is a recurrent problem and we have not been able to find an exact cause for his back pain, I feel that it warrants a CT scan of his back the spine of the lumbar region and also the musclesand the abdominal contents. Nabumetone 750 mg twice a day with food. Baclofen 10 mg 3 times a day as needed caution about working or driving with this medicine. * Assessment & Plan Note - Lake Perales MD - 03/06/2022 3:44 PM EST Associated Problem(s): Acute right-sided low back pain without sciatica Since this is a recurrent problem and we have not been able to find an exact cause for his back pain, I feel that it warrants a CT scan of his back the spine of the lumbar region and also the musclesand the abdominal contents. Nabumetone 750 mg twice a day with food. Baclofen 10 mg 3 times a day as needed caution about working or driving with this medicine. documented in this [facility]01-10-2023 Evaluation + Plan note* Assessment & Plan Note - Lake Perales MD - 03/06/2022 3:44 PM EST Associated Problem(s): Acute right-sided low back pain without sciatica Since this is a recurrent problem and we have not been able to find an exact cause for his back pain, I feel that it warrants a CT scan of his back the spine of the lumbar region and also the musclesand the abdominal contents. Nabumetone 750 mg twice a day with food. Baclofen 10 mg 3 times a day as needed caution about working or driving with this medicine. [facility] [id number] History of Present illness Narrative* Lake Perales MD - 03/06/2022 3:00 PM EST Images from the original note were not included. 03/06/2022 Jaylen Queen (: 1960) is a 61 y.o. male , Established patient, here for evaluation of thefollowing chief complaint(s): Back Pain (Right lower - ongoing not any better urine is clear //Still taking Augmentin //Pt has not heard from urology for appt yet ) ASSESSMENT/PLAN: 1. Acute right-sided low back pain without sciatica Assessment & Plan: Since this is a recurrent problem and we have not been able to find an exact cause for his back pain, I feel that it warrants a CT scan of his back the spine of the lumbar region and also the musclesand the abdominal contents. Nabumetone 750 mg twice a day with food. Baclofen 10 mg 3 times a day as needed caution about working or driving with this medicine. Orders: - CT lumbar spine wo IV contrast 2. Right flank pain Assessment & Plan: Since this is a recurrent problem and we have not been able to find an exact cause for his back pain, I feel that it warrants a CT scan of his back the spine of the lumbar region and also the musclesand the abdominal contents. Nabumetone 750 mg twice a day with food. Baclofen 10 mg 3 times a day as needed caution about working or driving with this medicine. Orders: - POCT urinalysis dipstick manually resulted - CT lumbar spine wo IV contrast Follow up After CT scan and medication. SUBJECTIVE/OBJECTIVE: HPI -Jaylen comes in today for follow-up on his right-sided low back pain says is making his whole back ache and he points to the area just below his ribs. He has been treated for urinary tract infection multiple times and he is being referred to urology for his recurrent UTIs. He denies any urinarysymptoms at this time he has been on a antibiotics Augmentin for 10 days. 3 months ago he was having similar issues and was treated for UTI and he ended up having large bowel movements which took care of his back pain. He says he is taking Metamucil and trying to keep his bowels moving. He denies any radiation of pain down his legs but he says it does go up his back towards his shoulders. He denies any injury. Review of Systems Gastrointestinal: Negative for abdominal pain, constipation and diarrhea. Genitourinary: Negative for dysuria, frequency and urgency. Musculoskeletal: Positive for back pain and myalgias. Negative for arthralgias and gait problem. Neurological: Negative for weakness and numbness. Vitals: 03/06/22 1446 BP: 120/72 Pulse: 74 Weight: 236 lb 12.8 oz (107 kg) Height: 6' 2 (1.88 m) Physical Exam Vitals and nursing note reviewed. Constitutional: General: He is not in acute distress. Appearance: Normal appearance. HENT: Head: Normocephalic. Mouth/Throat: Mouth: Mucous membranes are moist. Pharynx: Oropharynx is clear. Eyes: Extraocular Movements: Extraocular movements intact. Pupils: Pupils are equal, round, and reactive to light. Cardiovascular: Rate and Rhythm: Normal rate and regular rhythm. Heart sounds: Normal heart sounds. Pulmonary: Effort: Pulmonary effort is normal. Breath sounds: Normal breath sounds. Abdominal: General: Bowel sounds are normal. Palpations: Abdomen is soft. Tenderness: There is no abdominal tenderness. There is no right CVA tenderness or left CVA tenderness. Musculoskeletal: Cervical back: Neck supple. Comments: His back has pain to palpation just below the ribs on the right side, he has normal rangeof motion. Neurological: Mental Status: He is alert. An electronic signature was used to authenticate this note. Lake Perales MD 03/06/2022 3:47 PM documented in this [facility]01-03-2023 Evaluation + Plan note* Assessment & Plan Note - FELISHA Naylor CNP - 02/27/2022 5:29 PM ESTAssociated Problem(s): Essential hypertension, benign Initial reading elevated. Repeat good. Not on medications. [facility] [id number] Miscellaneous Notes* Assessment & Plan Note - FELISHA Naylor CNP - 02/27/2022 5:29 PM ESTAssociated Problem(s): Essential hypertension, benign Initial reading elevated. Repeat good. Not on medications. * Assessment & Plan Note - FELISHA Naylor CNP - 02/27/2022 5:28 PM ESTAssociated Problem(s): Acute cystitis without hematuria Urine culture + ecoli. Sensitivity to augmentin. Will extend treatment for additional 4 days. Continue to monitor. Increase fluid intake. * Assessment & Plan Note - FELISHA Naylor CNP - 02/27/2022 5:27 PM ESTAssociated Problem(s): Flank pain Likely more musculoskeletal. No fever, non ill appearing. Ok for muscle relaxant (has rx from prior). documented in this [facility]01-03-2023 Miscellaneous Notes* Assessment & Plan Note - FELISHA Naylor CNP - 02/27/2022 5:29 PM ESTAssociated Problem(s): Essential hypertension, benign Initial reading elevated. Repeat good. Not on medications. * Assessment & Plan Note - FELISHA Naylor CNP - 02/27/2022 5:28 PM ESTAssociated Problem(s): Acute cystitis without hematuria Urine culture + ecoli. Sensitivity to augmentin. Will extend treatment for additional 4 days. Continue to monitor. Increase fluid intake. * Assessment & Plan Note - FELISHA Naylor CNP - 02/27/2022 5:27 PM ESTAssociated Problem(s): Flank pain Likely more musculoskeletal. No fever, non ill appearing. Ok for muscle relaxant (has rx from prior). * Addendum Note - FELISHA Naylor CNP - 02/27/2022 1:20 PM EST Addended by: DINO BROWN on: 02/28/2022 04:39 PM Modules accepted: Level of Service documented in this [facility]01-03-2023 Evaluation + Plan note* Assessment & Plan Note - FELISHA Naylor CNP - 02/27/2022 5:28 PM ESTAssociated Problem(s): Acute cystitis without hematuria Urine culture + ecoli. Sensitivity to augmentin. Will extend treatment for additional 4 days. Continue to monitor. Increase fluid intake. [facility] [id number] Evaluation + Plan note* Assessment & Plan Note - FELISHA Naylor CNP - 02/27/2022 5:27 PM ESTAssociated Problem(s): Flank pain Likely more musculoskeletal. No fever, non ill appearing. Ok for muscle relaxant (has rx from prior). [facility] [id number] History of Present illness Narrative* Paloma Holland - 02/27/2022 1:20 PM EST [employer] for Intimate and Non Intimate Exam [employer] was declined [employer]: na * FELISHA Naylor CNP - 02/27/2022 1:20 PM EST Images from the original note were not included. 02/27/2022 Jaylen Queen (: 1960) is a 61 y.o. male , Established patient, here for evaluation of thefollowing chief complaint(s): Flank Pain (right) and Other (Foul odor in urine) ASSESSMENT/PLAN: 1. Acute cystitis without hematuria Assessment & Plan: Urine culture + ecoli. Sensitivity to augmentin. Will extend treatment for additional 4 days. Continue to monitor. Increase fluid intake. Orders: - POCT urinalysis dipstick manually resulted - amoxicillin-clavulanate (Augmentin) 875-125 MG tablet; Take 1 tablet by mouth 2 times daily for 4days. Start after completing current prescription., Starting 02/27/2022, Until 03/03/2022, Normal 2. Flank pain Assessment & Plan: Likely more musculoskeletal. No fever, non ill appearing. Ok for muscle relaxant (has rx from prior). 3. Essential hypertension, benign Assessment & Plan: Initial reading elevated. Repeat good. Not on medications. Follow up if symptoms worsen or fail to improve. SUBJECTIVE/OBJECTIVE: HPI - Presents for right flank pain, UTI. + ecoli. Culture sensitivity to Augmentin. Started on Augmentin. Denies any fever, but has felt warm and chilled at times , no n/v. Does have intermittent back pain (muscular). Hx of MDRE and needing inpatient treatment. Health Maintenance: Review of Systems Constitutional: Negative for chills. Respiratory: Negative for cough and shortness of breath. Gastrointestinal: Negative for nausea and vomiting. Genitourinary: Positive for flank pain (? right side). Negative for dysuria, frequency, hematuria and urgency. Urine is dark, cloudy, odor Vitals: 02/27/22 1335 02/27/22 1416 BP: (!) 166/87 138/80 Pulse: 69 Temp: 36.5 C (97.7 F) TempSrc: Temporal Weight: 235 lb (107 kg) Physical Exam Constitutional: General: He is not in acute distress. Appearance: Normal appearance. He is not ill-appearing. HENT: Head: Normocephalic and atraumatic. Mouth/Throat: Pharynx: Oropharynx is clear. Cardiovascular: Rate and Rhythm: Regular rhythm. Pulmonary: Effort: Pulmonary effort is normal. Breath sounds: Normal breath sounds. Abdominal: Tenderness: There is no right CVA tenderness or left CVA tenderness. Musculoskeletal: Back: Comments: Paraspinal muscle tenderness. Skin: General: Skin is warm and dry. Neurological: Mental Status: He is alert and oriented to person, place, and time. An electronic signature was used to authenticate this note. FELISHA Naylor CNP 02/27/2022 4:42 PM documented in this [facility]01-03-2023 History of Present illness Narrative* Paloma Holland - 02/27/2022 1:20 PM EST [employer] for Intimate and Non Intimate Exam [employer] was declined [employer]: na * FELISHA Naylor CNP - 02/27/2022 1:20 PM EST Images from the original note were not included. 02/27/2022 Jaylen Queen (: 1960) is a 61 y.o. male , Established patient, here for evaluation of thefollowing chief complaint(s): Flank Pain (right) and Other (Foul odor in urine) ASSESSMENT/PLAN: 1. Acute cystitis without hematuria Assessment & Plan: Urine culture + ecoli. Sensitivity to augmentin. Will extend treatment for additional 4 days. Continue to monitor. Increase fluid intake. Orders: - POCT urinalysis dipstick manually resulted - amoxicillin-clavulanate (Augmentin) 875-125 MG tablet; Take 1 tablet by mouth 2 times daily for 4days. Start after completing current prescription., Starting 02/27/2022, Until 03/03/2022, Normal 2. Flank pain Assessment & Plan: Likely more musculoskeletal. No fever, non ill appearing. Ok for muscle relaxant (has rx from prior). 3. Essential hypertension, benign Assessment & Plan: Initial reading elevated. Repeat good. Not on medications. Follow up if symptoms worsen or fail to improve. SUBJECTIVE/OBJECTIVE: HPI - Presents for right flank pain, UTI. + ecoli. Culture sensitivity to Augmentin. Started on Augmentin. Denies any fever, but has felt warm and chilled at times , no n/v. Does have intermittent back pain (muscular). Hx of MDRE and needing inpatient treatment. Health Maintenance: Review of Systems Constitutional: Negative for chills. Respiratory: Negative for cough and shortness of breath. Gastrointestinal: Negative for nausea and vomiting. Genitourinary: Positive for flank pain (? right side). Negative for dysuria, frequency, hematuria and urgency. Urine is dark, cloudy, odor Vitals: 02/27/22 1335 02/27/22 1416 BP: (!) 166/87 138/80 Pulse: 69 Temp: 36.5 C (97.7 F) TempSrc: Temporal Weight: 235 lb (107 kg) Physical Exam Constitutional: General: He is not in acute distress. Appearance: Normal appearance. He is not ill-appearing. HENT: Head: Normocephalic and atraumatic. Mouth/Throat: Pharynx: Oropharynx is clear. Cardiovascular: Rate and Rhythm: Regular rhythm. Pulmonary: Effort: Pulmonary effort is normal. Breath sounds: Normal breath sounds. Abdominal: Tenderness: There is no right CVA tenderness or left CVA tenderness. Musculoskeletal: Back: Comments: Paraspinal muscle tenderness. Skin: General: Skin is warm and dry. Neurological: Mental Status: He is alert and oriented to person, place, and time. An electronic signature was used to authenticate this note. FELISHA Naylor CNP 02/27/2022 4:42 PM documented in this [facility]01-03-2023 Note* Addendum Note - FELISHA Naylor CNP - 02/27/2022 1:20 PM ESTAddended by: DINO BROWN on: 02/28/2022 04:39 PM Modules accepted: Level of Service [facility] [id number] NoteHospitalist Discharge Summary Jaylen Queen : 1960 Admit date: 12/01/2021 Discharge date: 12/06/2021 Total time Spent on Discharge: 32 minutes Admitting Physician: Temi Lynne MD Primary Care Physician: Lake Perales MD Visit Status: Admission Code Status: Full Code Discharge Diagnoses: Acute pyelonephritis Failed outpatient treatment for UTI ESBL Ecoli UTI Intermittent hematuria Left complex renal cyst CECILIA/ATN Intermittent chest pain HTN HLD Tobacco use Obesity BMI of 30.3 Hyperprolactinemic disorder Hypothyroidism Hospital Course: Patient admitted for acute pyelonephritis in setting of failed outpatient therapy for UTI. Patient found to have Ecoli ESBL UTI. Patient completed course of Ertepenem on 12/06/21 per ID recommendations on consult. Urology on consult for urinary retention. Labs resolved, patient stabilized, patient recommended to follow up with PCP and cardiology outpatient in 1-2 weeks. Patient recommended to follow up with cardiology outpatient for stress test due to intermittent chest pain. Patient will need follow up with urology outpatient and further renal US outpatient with urology for further evaluation of left complex renal cyst. Patient discharged to home in stable condition on 12/06/21. Consults: IP CONSULT TO CARDIOLOGY IP CONSULT TO INFECTIOUS DISEASES IP CONSULT TO UROLOGY Discharge Instructions: Diet: ADULT DIET; Regular Activity: as tolerated Recommended Outpatient Tests: Disposition: Patient discharged in stable condition to home. Vitals: BP (!) 145/85 Pulse 68 Temp 98.1 ?F (36.7 ?C) (Temporal) Resp 18 Ht 6' 2 (1.88 m) Wt 236 lb (107 kg) SpO2 94% BMI 30.30 kg/m? Pulse Ox: SpO2 Av % Min: 94 % Max: 94 % Supplemental O2: General appearance: No apparent distress, appears stated age and cooperative with exam HEENT: Normal cephalic, atraumatic without obvious deformity. Pupils equal, round, and reactive to light. Extra ocular muscles intact. Conjunctivae/corneas clear. Neck: Supple, with full range of motion. No jugular venous distention. Trachea midline. No lymphadenopathy. Respiratory: Normal respiratory effort. Clear to auscultation, bilaterally without Rales/Wheezes/Rhonchi. Cardiovascular: Regular rate and rhythm with normal S1/S2 without murmurs, rubs or gallops. Abdomen: Soft, non-tender, non-distended with normal bowel sounds. No rebound or guarding. Musculoskeletal: No clubbing, cyanosis or edema bilaterally. Full range of motion without deformity. Skin: Skin color, texture, turgor normal. No rashes or lesions. Neurologic: Neurovascularly intact without any focal sensory/motor deficits. Cranial nerves: II-XII intact, grossly non-focal. Discharge Medications: Medication List START taking these medications nicotine 21 MG/24HR Commonly known as: NICODERM CQ Place 1 patch onto the skin daily CONTINUE taking these medications aspirin 81 MG tablet cabergoline 0.5 MG tablet Commonly known as: DOSTINEX Take 1.5 tabs on Saturday and saturday fenofibrate 160 MG tablet Commonly known as: TRIGLIDE TAKE 1 TABLET BY MOUTH EVERY DAY levothyroxine 100 MCG tablet Commonly known as: SYNTHROID TAKE 1 TABLET BY MOUTH EVERY DAY niacin 1000 MG extended release tablet Commonly known as: NIASPAN 1000 mg p.o. daily rosuvastatin 10 MG tablet Commonly known as: CRESTOR Take 1 tablet by mouth daily STOP taking these medications nitrofurantoin (macrocrystal-monohydrate) 100 MG capsule Commonly known as: MACROBID triamterene-hydroCHLOROthiazide 37.5-25 MG per tablet Commonly known as: MAXZIDE-25 Where to Get Your Medications These medications were sent to [id number] - [place], [place] - [address] - P [phone] - F [phone] [address] [place] [address] nicotine 21 MG/24HR Recommended Follow-up: PCP, cardiology, urology outpatient in 1-2 weeks Readmission Risk Risk of Unplanned Readmission: 11 Complexity of Follow up: [] Moderate Complexity: follow up within 7-14 calendar days (27715) [x] Severe Complexity: follow up within 7 calendar days (59395) Follow up Testing, Pending results or Referrals at Transitional Care Visit: [x] yes [] no Instructions to MA: Please call patient on day after discharge (must document patient contacted within 2 business days of discharge). Follow up questions for MA: 1. Did you get medications filled and taking them as instructed from discharge? 2. Are you following your discharge instructions from your hospital stay? 3. Please confirm patient is scheduled for a follow up appointment within the above time frame. Signed: Best Fishman DO [facility] [place] 12/06/2021, 8:50 [facility]10-11-2022 History of Present illness Narrative* Nallely Villegas RN - 12/05/2021 8:11 PM EDT Patient has been adamant about taking his medications from home. Medications were sent down to Pharmacy to verify. Unable to scan meds because they are formulary. Notified Shikha Medicaid Eligibility Specialist on 12/04/2021 of situation. Notified Bridgett Kapoor DIVISION COMMANDER on 12/04/2021. Patient had been threatening to leave AMA on 12/03/2021 & 12/04/2021. Patient also adamantly refusing to receive ordered IVF. Dr. Barlow notified on 12/03/2021. Bridgett Kapoor NP notified on 12/04/2021 Revisited situation with Shikha Medicaid Eligibility Specialist on 12/05/2021. * Lorena Jama MD - 12/05/2021 8:37 AM EDT Images from the original note were not included. [facility] - Infectious Diseases Attending Progress Note Subjective: Patient seen for esbl pyelonephritis poorly treated and failed outpatient therapy with 2 courses ofnitrofurantoin and 1 shot IM gentamicin. WBC remains stable and normal, afebrile. Has no new complaints today. Objective: Vitals: Patient Vitals for the past 24 hrs: BP Temp Temp src Pulse Resp SpO2 12/04/212121 124/72 98.1 F (36.7 C) Temporal 56 18 95 % Physical Exam Vitals reviewed. Constitutional: Appearance: Normal appearance. He is obese. HENT: Head: Normocephalic and atraumatic. Nose: Nose normal. Mouth/Throat: Mouth: Mucous membranes are moist. Pharynx: Oropharynx is clear. Eyes: Extraocular Movements: Extraocular movements intact. Conjunctiva/sclera: Conjunctivae normal. Pupils: Pupils are equal, round, and reactive to light. Cardiovascular: Rate and Rhythm: Normal rate and regular rhythm. Pulses: Normal pulses. Heart sounds: Normal heart sounds. Pulmonary: Effort: Pulmonary effort is normal. No respiratory distress. Breath sounds: Normal breath sounds. Abdominal: General: Bowel sounds are normal. There is no distension. Palpations: Abdomen is soft. Tenderness: There is no abdominal tenderness. Musculoskeletal: General: Normal range of motion. Cervical back: Normal range of motion and neck supple. Skin: General: Skin is warm. Neurological: General: No focal deficit present. Mental Status: He is alert and oriented to person, place, and time. Psychiatric: Mood and Affect: Mood normal. Behavior: Behavior normal. Labs: Recent Labs 12/03/2131012/04/2111 12/05/21 0230 NA 137 138 135 K 4.2 4.9 4.3 CL 110* 105 105 CO2 21* 27 25 BUN 24* 22* 21* CREATININE 1.22 1.49* 1.26* GLUCOSE 96 106* 96 CALCIUM 9.7 10.4 10.2 Recent Labs 12/03/2131012/04/21 0511 12/05/21 0230 WBC 7.8 10.1 10.4 HGB 14.6 15.9 15.1 HCT 41.8 46.9 43.8 PLT 228 268 265 GRANULOCYTES 46.8 49.8 -- LYMPHOPCT 29.5 28.4 -- MONOPCT 6.2 6.6 6 LABEOS 17.0* 14.6* 18* BASOPCT 0.5 0.6 0 NEUTROABS 3.6 5.0 5.4 Micro: No results for input(s): COVID19 in the last 72 hours. Cultures: Lab Results Component Value Date/Time BC No growth at 1 day. No growth at 2 days. 12/01/2021 11:05 AM BC No growth at 1 day. No growth at 2 days. 12/01/2021 10:28 AM Lab Results Component Value Date/Time LABAERO Staphylococcus aureus 06/20/2018 11:33 AM LABAERO 06/20/2018 11:33 AM Rare Methicillin-resistant Staphylococcus aureus(MRSA) Lab Results Component Value Date/Time LABANAE No growth of anaerobes at 5 days. 06/20/2018 11:33 AM No results found for: RESPCULTURE Lines: PIV Radiography/Echo/Other: ACCESSION EXAM DATE/TIME PROCEDURE ORDERING PROVIDER [id number] 12/04/2021 10:28 EDT US Retroperitoneal BRIDGETT BOB CPT code 58065 Reason For Exam (US Retroperitoneal Limited) R flank pain Report US RETROPERITONEAL COMPLETE CLINICAL INDICATION: Right flank pain TECHNIQUE: Complete ultrasound of the genitourinary retroperitoneal structures including color flow imaging and bladder COMPARISON: CT 11/27/2021 FINDINGS: RIGHT KIDNEY: Measures 11.5 x 6.2 x 5.1 cm. Cortical thickness and echotexture appear within normal limits. No obstructive uropathy or nephrolithiasis. LEFT KIDNEY: Measures 11.9 x 6.0 x 4.3 cm. Cortical thickness and echotexture appear within normal limits. No obstructive uropathy or nephrolithiasis. 1.4 x 1.1 cm anechoic cyst lower pole left kidney with mural calcification. 2.1 x 1.5 cm simple cyst mid to upper pole right kidney URINARY BLADDER: Fairly collapsed and not well visualized or evaluated ADDITIONAL FINDINGS: Hepatic steatosis IMPRESSION: 1. No obstructive uropathy or nephrolithiasis. 2. Left-sided renal cysts including slightly complex cyst with punctate calcification lower pole. This is favored to be benign. Consider follow-up ultrasound in one year 3. Hepatic steatosis. Report Dictated on --- Final --- Dictating Physician: MD JUNIOR VLADIMIR Signed Date and Time: 12/04/2021 2:47 pm Signed by: MD JUNIOR VLADIMIR Transcribed Date and Time: 12/04/2021 2:48 Antimicrobials,Start/End Dates: Meropenem 12/01- Ertapenem 12/03- Impression: Poorly treated ESBL e.coli UTI: leucocytosis resolved and stable. Acute pyelonephritis; repeat UA remains normal. Though patient reported blood in urine. CECILIA: creatinine level improved Left renal cysts Plan: C/w IV ertapenem 1g Q24h x 5 days till 12/06 May consider single dose of fosfomycin if patient has to go home before completing IV course in patient. ID will sign off now, please page with Questions, concerns or new changes. More that 51% total time 35 Minutes counseling (or coordinating care) and providing discussion regarding diagnosis, clinical and radiological findings, plan of care expectations & antimicrobials. * Bridgett Kapoor, CIVIL DEFENSE DIRECTOR - ALTITUDE CHAMBER TECHNICIAN - 12/05/2021 8:13 AM EDT Images from the original note were not included. Hospitalist Progress Note 12/05/2021 [phone]: Please reach me on [facility] patient care issues. [phone]: Please page [facility] night Hospitalist for any issues. Subjective: Admit Date: 12/01/2021 PCP: Lake Perales MD Room#: 158/1581 Interval History: No overnight issues. Feeling much better today. No more flank pain. Discussed results and Urology recommendations. ID stated ok for pt to DC on 12/06. Pt has been eating/drinking well. Denies chest pain, sob, abdominal pain, nausea, vomiting, diarrhea, constipation, fevers, or chills. ADULT DIET; Regular Patient Vitals for the past 96 hrs (Last 3 readings): Weight 12/01/21 1017 236 lb (107 kg) 24HR INTAKE/OUTPUT: No intake or output data in the 24 hours ending 12/05/21812 Past Medical History: Diagnosis Date Benign neoplasm of pituitary gland and craniopharyngeal duct (pouch) (HCC) Chest pain, unspecified Diverticulitis Esophageal reflux Essential hypertension, benign Kidney stone Other abnormal blood chemistry Other and unspecified hyperlipidemia Other anterior pituitary disorders Other testicular hypofunction Pituitary tumor Tobacco use disorder Unspecified hearing loss Unspecified hypothyroidism LABS: CBC: Recent Labs 12/03/2131012/04/2151012/05/21 0230 WBC 7.8 10.1 10.4 RBC 4.72 5.20 4.91 HGB 14.6 15.9 15.1 HCT 41.8 46.9 43.8 MCV 88.7 90.2 89.1 RDW 13.7 13.5 13.7 PLT 228 268 265 BMP: Recent Labs 12/03/2131012/04/2151012/05/21229 NA 137 138 135 K 4.2 4.9 4.3 CL 110* 105 105 CO2 21* 27 25 BUN 24* 22* 21* CREATININE 1.22 1.49* 1.26* GLUCOSE 96 106* 96 CALCIUM 9.7 10.4 10.2 ANIONGAP 7 6 6 Objective: Vitals: BP 124/72 Pulse 56 Temp 98.1 F (36.7 C) (Temporal) Resp 18 Ht 6' 2 (1.88 m) Wt 236 lb (107 kg) SpO2 95% BMI 30.30 kg/m Pulse Ox: SpO2 Av % Min: 95 % Max: 95 % Supplemental O2: General appearance: No apparent distress, appears stated age and cooperative with exam HEENT: Normal cephalic, atraumatic without obvious deformity. Pupils equal, round, and reactive to light. Extra ocular muscles intact. Conjunctivae/corneas clear. Neck: Supple, with full range of motion. No jugular venous distention. Trachea midline. No lymphadenopathy. Respiratory: Normal respiratory effort. Clear to auscultation, bilaterally without Rales/Wheezes/Rhonchi. Cardiovascular: Regular rate and rhythm with normal S1/S2 without murmurs, rubs or gallops. Abdomen: Soft, non-tender, non-distended with normal bowel sounds. No rebound or guarding. Musculoskeletal: No clubbing, cyanosis or edema bilaterally. Full range of motion without deformity. Skin: Skin color, texture, turgor normal. No rashes or lesions. Neurologic: Neurovascularly intact without any focal sensory/motor deficits. Cranial nerves: II-XIIintact, grossly non-focal. Medications: sodium chloride sodium chloride 75 mL/hr at 12/01/21 1639 nicotine 1 patch TransDERmal Daily melatonin 10 mg Oral Nightly ertapenem (INVanz) IVPB 1,000 mg IntraVENous Q24H sodium chloride 2,000 mL IntraVENous Once aspirin 81 mg Oral Daily cabergoline 0.75 mg Oral Once per day on Sat fenofibrate 160 mg Oral Daily levothyroxine 100 mcg Oral Daily rosuvastatin 10 mg Oral Daily sodium chloride flush 5-40 mL IntraVENous 2 times per day Assessment Acute pyelonephritis: failed outpt UTI treatement. Continue ATB. Blood cultures neg. Ecoli UTI w/ESBL:ID following. Continue IV Ertapenem through 12/06 per ID rec today; pt did receiveIV Meropenem from 12/01-12/02. Reported Intermittent hematuria, resolved Pt reports h/o previous kidney stones, no current stones Left complex renal cyst CECILIA d/t ATN: creatinine improved today; pt declines IVF. Voiding ok. Encouraged to drink more fluids. Repeat BMP in AM Complicated left renal cyst: f/u per Urology Intermittent chest pain. Cardiology rec outpt f/u with either coronary CTA or pharm stress test. Continue ASA/statin. HTN/HL Tobacco use, cessation encouraged Obesity, Body mass index is 30.3 kg/m . Hyperprolactinemic disorder Hypothyroidism Plan -am labs, replace lytes prn -increase activity -DVT prophylaxis: [] Lovenox [] Heparin [] SCDs [x] Encourage ambulation [] Already on Anticoagulation Advance Directive: Full Code Discharge planning: DC AM 12/06 after IV ATB and if renal function continues to improve FELISHA Pool CNP Division of Hospitalist Medicine [place] Medical Services/[facility] [place] * Sharon Cross RN - 12/05/2021 6:01 AM EDT Pt still does not want IV fluids running. Has been drinking water throughout the night. * Lorena Jama MD - 12/04/2021 10:30 AM EDT Images from the original note were not included. [facility] - Infectious Diseases Attending Progress Note Subjective: Patient seen for esbl pyelonephritis poorly treated and failed outpatient therapy with 2 courses ofnitrofurantoin and 1 shot IM gentamicin. WBC now stable and normal, patient reports having blood in urine and fever overnight Objective: Vitals: Patient Vitals for the past 24 hrs: BP Temp Temp src Pulse Resp SpO2 12/04/21 0731 130/76 99.5 F (37.5 C) Temporal 57 17 96 % 12/03/21 1908 128/77 98.4 F (36.9 C) Temporal 70 16 92 % Physical Exam Vitals reviewed. Constitutional: Appearance: Normal appearance. He is obese. HENT: Head: Normocephalic and atraumatic. Nose: Nose normal. Mouth/Throat: Mouth: Mucous membranes are moist. Pharynx: Oropharynx is clear. Eyes: Extraocular Movements: Extraocular movements intact. Conjunctiva/sclera: Conjunctivae normal. Pupils: Pupils are equal, round, and reactive to light. Cardiovascular: Rate and Rhythm: Normal rate and regular rhythm. Pulses: Normal pulses. Heart sounds: Normal heart sounds. Pulmonary: Effort: Pulmonary effort is normal. No respiratory distress. Breath sounds: Normal breath sounds. Abdominal: General: Bowel sounds are normal. There is no distension. Palpations: Abdomen is soft. Tenderness: There is no abdominal tenderness. There is no right CVA tenderness or left CVA tenderness. Musculoskeletal: General: Normal range of motion. Cervical back: Normal range of motion and neck supple. Skin: General: Skin is warm. Neurological: General: No focal deficit present. Mental Status: He is alert and oriented to person, place, and time. Psychiatric: Mood and Affect: Mood normal. Behavior: Behavior normal. Labs: Recent Labs 12/02/21 0254 12/03/21 0311 12/04/21 0511 NA 134* 137 138 K 3.7 4.2 4.9 CL 107 110* 105 CO2 18* 21* 27 BUN 29* 24* 22* CREATININE 1.49* 1.22 1.49* GLUCOSE 99 96 106* CALCIUM 9.7 9.7 10.4 PROT 6.7 -- -- LABALBU 3.7 -- -- BILITOT 0.4 -- -- ALKPHOS 46 -- -- AST 24 -- -- ALT 16 -- -- Recent Labs 12/02/21 0254 12/03/21 0311 12/04/21 0511 WBC 8.6 7.8 10.1 HGB 14.3 14.6 15.9 HCT 40.8 41.8 46.9 PLT 203 228 268 GRANULOCYTES 54.3 46.8 49.8 LYMPHOPCT 21.5 29.5 28.4 MONOPCT 7.6 6.2 6.6 LABEOS 16.2* 17.0* 14.6* BASOPCT 0.4 0.5 0.6 NEUTROABS 4.6 3.6 5.0 Micro: No results for input(s): COVID19 in the last 72 hours. Cultures: Lab Results Component Value Date/Time BC No growth at 1 day. No growth at 2 days. 12/01/2021 11:05 AM BC No growth at 1 day. No growth at 2 days. 12/01/2021 10:28 AM Lab Results Component Value Date/Time LABAERO Staphylococcus aureus 06/20/2018 11:33 AM LABAERO 06/20/2018 11:33 AM Rare Methicillin-resistant Staphylococcus aureus(MRSA) Lab Results Component Value Date/Time LABANAE No growth of anaerobes at 5 days. 06/20/2018 11:33 AM No results found for: RESPCULTURE Lines: PIV Radiography/Echo/Other: ACCESSION EXAM DATE/TIME PROCEDURE ORDERING PROVIDER [id number] 12/04/2021 10:28 EDT US Retroperitoneal BRIDGETT BOB CPT code 02639 Reason For Exam (US Retroperitoneal Limited) R flank pain Report US RETROPERITONEAL COMPLETE CLINICAL INDICATION: Right flank pain TECHNIQUE: Complete ultrasound of the genitourinary retroperitoneal structures including color flow imaging and bladder COMPARISON: CT 11/27/2021 FINDINGS: RIGHT KIDNEY: Measures 11.5 x 6.2 x 5.1 cm. Cortical thickness and echotexture appear within normal limits. No obstructive uropathy or nephrolithiasis. LEFT KIDNEY: Measures 11.9 x 6.0 x 4.3 cm. Cortical thickness and echotexture appear within normal limits. No obstructive uropathy or nephrolithiasis. 1.4 x 1.1 cm anechoic cyst lower pole left kidney with mural calcification. 2.1 x 1.5 cm simple cyst mid to upper pole right kidney URINARY BLADDER: Fairly collapsed and not well visualized or evaluated ADDITIONAL FINDINGS: Hepatic steatosis IMPRESSION: 1. No obstructive uropathy or nephrolithiasis. 2. Left-sided renal cysts including slightly complex cyst with punctate calcification lower pole. This is favored to be benign. Consider follow-up ultrasound in one year 3. Hepatic steatosis. Report Dictated on --- Final --- Dictating Physician: MD JUNIOR VLADIMIR Signed Date and Time: 12/04/2021 2:47 pm Signed by: MD JUNIOR VLADIMIR Transcribed Date and Time: 12/04/2021 2:48 Antimicrobials,Start/End Dates: Meropenem 12/01-8 Ertapenem 12/03- Impression: Poorly treated ESBL e.coli UTI: leucocytosis resoled and stable. Acute pyelonephritis CECILIA Left renal cysts Plan: C/w IV ertapenem 1g Q24h x 5 days till 12/06 May consider single dose of fosfomycin if patient has to go home before completing IV course. More that 51% total time 40 Minutes counseling (or coordinating care) and providing discussion regarding diagnosis, clinical and radiological findings, plan of care expectations & antimicrobials. * Bridgett Kapoor, CIVIL DEFENSE DIRECTOR - ALTITUDE CHAMBER TECHNICIAN - 12/04/2021 9:24 AM EDT Images from the original note were not included. Hospitalist Progress Note 12/04/[id number]: Please reach me on [employer] patient care issues. [phone]: Please page [facility] night Hospitalist for any issues. Subjective: Admit Date: 12/01/2021 PCP: Lake Perales MD Room#: 158/1581 Interval History: Pt reports some hematuria yesterday Currently calm/pleasant. Wants to stay for treatment Ongoing complaints of R flank pain - does report h/o kidney stones some years ago Denies chest pain, sob, abdominal pain, nausea, vomiting, diarrhea, constipation, fevers, or chills. ADULT DIET; Regular Patient Vitals for the past 96 hrs (Last 3 readings): Weight 12/01/21 1017 236 lb (107 kg) 24HR INTAKE/OUTPUT: No intake or output data in the 24 hours ending 12/04/21923 Past Medical History: Diagnosis Date Benign neoplasm of pituitary gland and craniopharyngeal duct (pouch) (HCC) Chest pain, unspecified Diverticulitis Esophageal reflux Essential hypertension, benign Kidney stone Other abnormal blood chemistry Other and unspecified hyperlipidemia Other anterior pituitary disorders Other testicular hypofunction Pituitary tumor Tobacco use disorder Unspecified hearing loss Unspecified hypothyroidism LABS: CBC: Recent Labs 12/02/214 12/03/21 0311 12/04/21 0511 WBC 8.6 7.8 10.1 RBC 4.58 4.72 5.20 HGB 14.3 14.6 15.9 HCT 40.8 41.8 46.9 MCV 89.0 88.7 90.2 RDW 13.8 13.7 13.5 PLT 203 228 268 BMP: Recent Labs 12/02/21 0254 12/03/21 0311 12/04/21 0511 NA 134* 137 138 K 3.7 4.2 4.9 CL 107 110* 105 CO2 18* 21* 27 BUN 29* 24* 22* CREATININE 1.49* 1.22 1.49* GLUCOSE 99 96 106* CALCIUM 9.7 9.7 10.4 ANIONGAP 9 7 6 LIVER PROFILE: Recent Labs 12/01/21 1028 12/02/21 0254 AST 27 24 ALT 20 16 BILITOT 0.7 0.4 ALKPHOS 58 46 LABALBU 4.4 3.7 PROT 7.8 6.7 CARDIAC ENZYMES: Recent Labs 12/01/21 1410 TROPONINI <0.012 Objective: Vitals: BP 130/76 Pulse 57 Temp 99.5 F (37.5 C) (Temporal) Resp 17 Ht 6' 2 (1.88 m) Wt 236 lb (107 kg) SpO2 96% BMI 30.30 kg/m Pulse Ox: SpO2 Av % Min: 92 % Max: 96 % Supplemental O2: General appearance: No apparent distress HEENT: Normal cephalic, atraumatic without obvious deformity. Pupils equal, round, and reactive to light. Extra ocular muscles intact. Conjunctivae/corneas clear. Neck: Supple, with full range of motion. No jugular venous distention. Trachea midline. No lymphadenopathy. Respiratory: Normal respiratory effort. Clear to auscultation, bilaterally without Rales/Wheezes/Rhonchi. Cardiovascular: Regular rate and rhythm with normal S1/S2 without murmurs, rubs or gallops. Abdomen: Soft, non-tender, non-distended with normal bowel sounds. No rebound or guarding. Right CVAT Musculoskeletal: No clubbing, cyanosis or edema bilaterally. Full range of motion without deformity. Skin: Skin color, texture, turgor normal. No rashes or lesions. Neurologic: Neurovascularly intact without any focal sensory/motor deficits. Cranial nerves: II-XIIintact, grossly non-focal. Medications: sodium chloride sodium chloride 75 mL/hr at 12/01/21 1639 nicotine 1 patch TransDERmal Daily melatonin 10 mg Oral Nightly ertapenem (INVanz) IVPB 1,000 mg IntraVENous Q24H sodium chloride 2,000 mL IntraVENous Once aspirin 81 mg Oral Daily cabergoline 0.75 mg Oral Once per day on Sat fenofibrate 160 mg Oral Daily levothyroxine 100 mcg Oral Daily rosuvastatin 10 mg Oral Daily sodium chloride flush 5-40 mL IntraVENous 2 times per day enoxaparin 30 mg SubCUTAneous BID Assessment Acute pyelonephritis: failed outpt UTI treatement. Continue ATB. Blood cultures neg. Ecoli UTI w/ESBL:ID following. Continue IV Ertapenem through 12/07 per ID Reported Intermittent hematuria, repeat UA to see if there are and RBCs present. Urology eval Pt reports h/o previous kidney stones CECILIA d/t ATN: creatinine up again today; pt declines IVF. Voiding ok. Encouraged to drink more fluids. Will repeat BMP in AM Left renal cysts Intermittent chest pain. Cardiology rec outpt f/u with either coronary CTA or pharm stress test. Continue ASA/statin. HTN/HL Tobacco use, cessation encouraged Obesity, Body mass index is 30.3 kg/m . Hyperprolactinemic disorder Hypothyroidism Plan -am labs, replace lytes prn -increase activity -DVT prophylaxis: [x] Lovenox [] Heparin [] SCDs [x] Encourage ambulation [] Already on Anticoagulation Advance Directive: Full Code Discharge planning: Anticipate DC 12/07 when IV ATB completed FELISHA Pool CNP Division of Hospitalist Medicine Inpatient Medical Services/[facility] [place] * Sharon Cross RN - 12/04/2021 7:21 AM EDT Pt was encouraged to have his IV fluids restarted for the benefit of resolving his UTI. Pt did not want them, so was encouraged to drink water throughout the night. * Nallely Villegas RN - 12/03/2021 9:37 AM EDT Patient refused Medications this morning. Patient stated I took my own. Patient stated that he was upset because medications were not given earlier today. Patient stated that he was upset because we did not have a particular medication available yesterday, Cabergoline (non-formulary) and that he had to have his home medication brought in, and then we were going to give it at the wrong time (notthe time that he normally takes it at home). Patient requesting to be discharged today or he will leave AMA. I attempted to explain that patientcurrently has IV Invanz in place and its purpose. Patient then stated, I would rather be in [facility] then be here. Patient then began to speak of his who one year ago, and was a patient on this floor. Patient requesting to see Attending and Infectious Disease. Perfectserved Dr. Barlow and Dr. Jama to notify of request. * Shane Barlow MD - 12/03/2021 7:04 AM EDT Images from the original note were not included. Hospitalist Progress Note 12/03/2021 [phone]: Please page me ([phone]) for patient care issues. [phone]: Please page [facility] night Hospitalist for any issues. Subjective: Admit Date: 12/01/2021 PCP: Lake Perales MD Room#: 158/1581 Interval History: No overnight issues. Patient sitting in bed no acute distress. Anxious about leaving today. States that his pain is completely resolved and feels at his baseline. Denies chest pain,sob, abdominal pain, nausea, vomiting, diarrhea, constipation, fevers, or chills. ADULT DIET; Regular Patient Vitals for the past 96 hrs (Last 3 readings): Weight 12/01/21 1017 236 lb (107 kg) 24HR INTAKE/OUTPUT: No intake or output data in the 24 hours ending 12/03/21 0704 Past Medical History: Diagnosis Date Benign neoplasm of pituitary gland and craniopharyngeal duct (pouch) (HCC) Chest pain, unspecified Diverticulitis Esophageal reflux Essential hypertension, benign Kidney stone Other abnormal blood chemistry Other and unspecified hyperlipidemia Other anterior pituitary disorders Other testicular hypofunction Pituitary tumor Tobacco use disorder Unspecified hearing loss Unspecified hypothyroidism LABS: CBC: Recent Labs 12/01/21 1028 12/02/21 0254 12/03/211 WBC 16.3* 8.6 7.8 RBC 5.18 4.58 4.72 HGB 15.8 14.3 14.6 HCT 45.8 40.8 41.8 MCV 88.5 89.0 88.7 RDW 13.6 13.8 13.7 PLT 255 203 228 BMP: Recent Labs 12/01/21 1028 12/02/21 0254 12/03/21 031 NA 133* 134* 137 K 4.0 3.7 4.2 CL 103 107 110* CO2 21* 18* 21* BUN 18* 29* 24* CREATININE 1.34* 1.49* 1.22 GLUCOSE 122* 99 96 CALCIUM 10.7* 9.7 9.7 ANIONGAP 9 9 7 LIVER PROFILE: Recent Labs 12/01/21 1028 12/02/21 0254 AST 27 24 ALT 20 16 BILITOT 0.7 0.4 ALKPHOS 58 46 LABALBU 4.4 3.7 PROT 7.8 6.7 PT/INR: No results for input(s): PROTIME, INR in the last 72 hours. CARDIAC ENZYMES: Recent Labs 12/01/21 1410 TROPONINI <0.012 Procalcitonin: No results found for: PROCAL COVID-19 PCR: No results for input(s): COVID19 in the last 72 hours. Objective: Vitals: BP 123/79 Pulse 59 Temp 99 F (37.2 C) (Temporal) Resp 18 Ht 6' 2 (1.88 m) Wt 236lb (107 kg) SpO2 95% BMI 30.30 kg/m Pulse Ox: SpO2 Av.5 % Min: 95 % Max: 98 % Supplemental O2: General appearance: No apparent distress, appears stated age and cooperative with exam HEENT: Normal cephalic, atraumatic without obvious deformity. Pupils equal, round, and reactive to light. Extra ocular muscles intact. Conjunctivae/corneas clear. Neck: Supple, with full range of motion. No jugular venous distention. Trachea midline. No lymphadenopathy. Respiratory: Normal respiratory effort. Clear to auscultation, bilaterally without Rales/Wheezes/Rhonchi. Cardiovascular: Regular rate and rhythm with normal S1/S2 without murmurs, rubs or gallops. Abdomen: Soft, non-tender, non-distended with normal bowel sounds. No rebound or guarding. Musculoskeletal: No clubbing, cyanosis or edema bilaterally. Full range of motion without deformity, +2 peripheral pulses in all extremities. Skin: Skin color, texture, turgor normal. No rashes or lesions. Neurologic: Neurovascularly intact without any focal sensory/motor deficits. Cranial nerves: II-XIIintact, grossly non-focal. Medications: sodium chloride sodium chloride 75 mL/hr at 12/01/21 1639 nicotine 1 patch TransDERmal Daily melatonin 10 mg Oral Nightly ertapenem (INVanz) IVPB 1,000 mg IntraVENous Q24H sodium chloride 2,000 mL IntraVENous Once aspirin 81 mg Oral Daily cabergoline 0.75 mg Oral Once per day on Sat fenofibrate 160 mg Oral Daily levothyroxine 100 mcg Oral Daily rosuvastatin 10 mg Oral Daily sodium chloride flush 5-40 mL IntraVENous 2 times per day enoxaparin 30 mg SubCUTAneous BID Assessment Right flank pain likely 2/2 acute pyelonephritis ESBL E. coli UTI Leukocytosis 2/2 # 1 Chest pain CECILIA-likely prerenal azotemia HTN Hypothyroidism History of recurrent UTIs Hyperprolactinemic disorder Nicotine dependence Obesity - BMI 30.30 Plan -Patient presents to [facility] with complaints of ongoing right flank pain. Patient has had 2 urine cultures on 11/14 and 11/27/2021 consistent with ESBL E. coli. Initially placed on Macrobid and given an injection of gentamicin. Symptoms of not resolved and return to the ER for further evaluation. Started on IV meropenem and ID consulted. Changed to IV Ertapenem and advises 5 days (12/03/09). Patient had chest pain admission. Troponin was negative. EKG shows normal sinus rhythm with no acute ST or T wave changes. Echocardiogram obtained and consistent with an EF of 69% with nowall motion abnormalities. Cardiology consulted. Advising outpatient stress test versus CTA coronary. Patient found to have CECILIA and held hydrochlorothiazide/triamterene. Started on IV fluids with resolution of CECILIA -Patient was adamant on leaving the hospital today. States that it is worse than being in [facility]. Ana cross conversation with him regarding the risks and benefits of leaving [facility]. Explained to him why he needs to stay in the hospital and the reason to eradicate the ESBL infection with IV antibiotics.Patient's frustration likely stems from distrust to the medical community after the loss of his . She was admitted on 1 E. and recently. I showed the patient empathy at the bedside and advised him to stay. He stated that he will think about it and let us know. -am labs, replace lytes prn -increase activity -DVT prophylaxis: [x] Lovenox [] Heparin [] SCDs [x] Encourage ambulation [] Already on Anticoagulation Advance Directive: Full Code Discharge planning: TBD Shane Barlow MD Division of Hospitalist Medicine Inpatient Medical Services[facility]: [facility]ECT SERVE * Sharon Cross RN - 12/02/2021 9:32 PM EDT Pt refusing IV fluids at this time. Pt verbal with this nurse over medication and wanting to have his doctors come see him. * Tamara Davis RD, LD - 12/02/2021 10:55 AM EDT Comprehensive Nutrition Assessment Type and Reason for Visit: Initial, Positive Nutrition Screen (Unintentional Wt Loss; Poor Appetite) Nutrition Recommendations/Plan: Pt currently on Low fat/chol, high fiber, 2g Na diet; Pt very frustrated with diet restriction, states his appetite is low d/t dietary restrictions. Per MNT protocol, will modify diet order to Regular. Impact of inpatient dietary restriction questionable given pt is receiving outside foods from family ([employer], etc.). Appears the pt is currently not receptive toward nutrition/lifestyle modification. Will refer to DT for ongoing nutrition screening. Malnutrition Assessment: Malnutrition Status: No malnutrition (12/02/21 1054) Context: Acute Illness Nutrition Assessment: Pt presented to ED with ongoing right flank pain, dysuria, nausea, chest tightness. Patient had 2 urine culture on November 14, 2021 and November 27, 2021 showed ESBL E. coli. There was another urine culture from November 27 which was negative. Initially was placed on Macrobid and then was given an injection of gentamicin and subsequently placed again on Macrobid. PMHx: hypothyroidism, hypertension,hyperlipidemia, nicotine dependence, recurrent UTI recent ESBL E. coli UTI. Per Cardiology note (12/02), he has no prior cardiac history but does have several risk factors including hypertension and ongoing tobacco use. He tells me that he does not have a heart problem and is irritated that they have been doing some heart tests while he is here. He believes that his main issue is a kidney infection. He states that due to pain and anxiety he was having some chest discomfort and shortness of breath. Currently he is pain-free. He has had a negative pharmacologic stress test in the past. He has an aversion to a treadmill stress because his neighbor after having a stress test. Pt resting in bed at time of RD assessment, wearing street clothes, no visitors present. Pt reports his appetitehas been low since his around a year ago. Pt reports non-significant wt loss r/t decreased appetite, he believes 6- 9#. NKFA. Pt very frustrated with diet restriction (Cardiac), states his current appetite is low d/t dietary restrictions. Frustrated over heart related diet. Pt states, it doesn't matter any way because I'm having my daughter bring me in [employer]. RD provided emotionalsupport regarding pt's frustration. Nutrition Related Findings: +BS; Abdomen: soft, round. No edema indicated. Wound Type: None (Henrique=23) Pertinent Labs: CBC: Recent Labs 12/01/21 1028 12/02/21 0254 WBC 16.3* 8.6 HGB 15.8 14.3 PLT 255 203 BMP: Recent Labs 12/01/21 1028 12/02/21 0254 NA 133* 134* K 4.0 3.7 CL 103 107 CO2 21* 18* BUN 18* 29* CREATININE 1.34* 1.49* GLUCOSE 122* 99 Cardiac Injury Profile: Recent Labs 12/01/21 1410 TROPONINI <0.012 Current Nutrition Intake & Therapies: Average Meal Intake: 76-100% Average Supplements Intake: None Ordered ADULT DIET; Regular Anthropometric Measures: Height: 6' 2 (188 cm) [place] Body Weight (IBW): 190 lbs (86 kg) Current Body Weight: 236 lb (107 kg), IBW. Current BMI (kg/m2): 30.3 Usual Body Weight: 245 lb (111.1 kg) % Weight Change (Calculated): -3.7 Weight Adjustment For: No Adjustment BMI Categories: Obese Class 1 (BMI 30.0-34.9) Estimated Daily Nutrient Needs: Energy Requirements Based On: Kcal/kg Weight Used for Energy Requirements: [place] Energy (kcal/day): 7817-7868 (25-30 kcals/kg) Weight Used for Protein Requirements: [place] Protein (g/day): 86-103 (1.0-1.2g/kg) Method Used for Fluid Requirements: 1 ml/kcal Fluid (ml/day): Or per MD discretion Nutrition Diagnosis: Predicted inadequate energy intake related to acute injury/trauma (acute pyelonephritis) as evidenced by poor intake prior to admission (abdominal pain, R flank pain) Nutrition Interventions: Food and/or Nutrient Delivery: Modify Current Diet Nutrition Education/Counseling: Education declined Coordination of Nutrition Care: No recommendation at this time (Will refer to DT for ongoing nutrition screening) Plan of Care discussed with: Pt Tamara Davis RD, LD Contact: River Bah * Shane Barlow MD - 12/02/2021 8:24 AM EDT Images from the original note were not included. Hospitalist Progress Note 12/02/[id number]: Please page me ([phone]) for patient care issues. [phone]: Please page [facility] night Hospitalist for any issues. Subjective: Admit Date: 12/01/2021 PCP: [place] Perales MD Room#: 158/1581 Interval History: No overnight issues. Patient was frustrated this morning with nursing staff. Seemto calm down and feels better. Denies chest pain, sob, abdominal pain, nausea, vomiting, diarrhea, constipation, fevers, or chills. ADULT DIET; Regular; Low Fat/Low Chol/High Fiber/2 gm Na Patient Vitals for the past 96 hrs (Last 3 readings): Weight 12/01/21 1017 236 lb (107 kg) 24HR INTAKE/OUTPUT: No intake or output data in the 24 hours ending 12/02/21 0824 Past Medical History: Diagnosis Date Benign neoplasm of pituitary gland and craniopharyngeal duct (pouch) (HCC) Chest pain, unspecified Diverticulitis Esophageal reflux Essential hypertension, benign Kidney stone Other abnormal blood chemistry Other and unspecified hyperlipidemia Other anterior pituitary disorders Other testicular hypofunction Pituitary tumor Tobacco use disorder Unspecified hearing loss Unspecified hypothyroidism LABS: CBC: Recent Labs 12/01/21 1028 12/02/21 0254 WBC 16.3* 8.6 RBC 5.18 4.58 HGB 15.8 14.3 HCT 45.8 40.8 MCV 88.5 89.0 RDW 13.6 13.8 PLT 255 203 BMP: Recent Labs 12/01/21 1028 12/02/21 0254 NA 133* 134* K 4.0 3.7 CL 103 107 CO2 21* 18* BUN 18* 29* CREATININE 1.34* 1.49* GLUCOSE 122* 99 CALCIUM 10.7* 9.7 ANIONGAP 9 9 LIVER PROFILE: Recent Labs 12/01/21 1028 12/02/21 0254 AST 27 24 ALT 20 16 BILITOT 0.7 0.4 ALKPHOS 58 46 LABALBU 4.4 3.7 PROT 7.8 6.7 PT/INR: No results for input(s): PROTIME, INR in the last 72 hours. CARDIAC ENZYMES: Recent Labs 12/01/21 1410 TROPONINI <0.012 Procalcitonin: No results found for: PROCAL COVID-19 PCR: No results for input(s): COVID19 in the last 72 hours. Objective: Vitals: BP 111/68 Pulse 57 Temp 97.5 F (36.4 C) (Temporal) Resp 17 Ht 6' 2 (1.88 m) Wt 236 lb (107 kg) SpO2 98% BMI 30.30 kg/m Pulse Ox: SpO2 Av.6 % Min: 92 % Max: 98 % Supplemental O2: General appearance: No apparent distress, appears stated age and cooperative with exam HEENT: Normal cephalic, atraumatic without obvious deformity. Pupils equal, round, and reactive to light. Extra ocular muscles intact. Conjunctivae/corneas clear. Neck: Supple, with full range of motion. No jugular venous distention. Trachea midline. No lymphadenopathy. Respiratory: Normal respiratory effort. Clear to auscultation, bilaterally without Rales/Wheezes/Rhonchi. Cardiovascular: Regular rate and rhythm with normal S1/S2 without murmurs, rubs or gallops. Abdomen: Soft, non-tender, non-distended with normal bowel sounds. No rebound or guarding. Musculoskeletal: No clubbing, cyanosis or edema bilaterally. Full range of motion without deformity, +2 peripheral pulses in all extremities. Skin: Skin color, texture, turgor normal. No rashes or lesions. Neurologic: Neurovascularly intact without any focal sensory/motor deficits. Cranial nerves: II-XIIintact, grossly non-focal. Medications: sodium chloride sodium chloride 75 mL/hr at 12/01/21 1639 nicotine 1 patch TransDERmal Daily melatonin 10 mg Oral Nightly sodium chloride 2,000 mL IntraVENous Once aspirin 81 mg Oral Daily cabergoline 0.75 mg Oral Once per day on Sat fenofibrate 160 mg Oral Daily levothyroxine 100 mcg Oral Daily rosuvastatin 10 mg Oral Daily sodium chloride flush 5-40 mL IntraVENous 2 times per day enoxaparin 30 mg SubCUTAneous BID meropenem 2,000 mg IntraVENous Q8H Assessment Right flank pain likely 2/2 acute pyelonephritis ESBL E. coli UTI Leukocytosis 2/2 # 1 Chest pain CECILIA-likely prerenal azotemia HTN Hypothyroidism History of recurrent UTIs Hyperprolactinemic disorder Nicotine dependence Obesity - BMI 30.30 Plan -Patient presents to [facility] with complaints of ongoing right flank pain. Patient has had 2 urine cultures on 11/14 and 11/27/2021 consistent with ESBL E. coli. Initially placed on Macrobid and given an injection of gentamicin. Symptoms of not resolved and return to the ER for further evaluation. Started on IV meropenem and ID consulted. Patient had chest pain admission. Troponin was negative. EKG shows normal sinus rhythm with no acute ST or T wave changes. Echocardiogram obtained and consistent with an EF of 69% with no wall motion abnormalities. Cardiology consulted. Advising outpatient stress test versus CTA coronary. Patient found to have CECILIA and held hydrochlorothiazide/triamterene. Started on IV fluids -am labs, replace lytes prn -increase activity -DVT prophylaxis: [x] Lovenox [] Heparin [] SCDs [x] Encourage ambulation [] Already on Anticoagulation Advance Directive: Full Code Discharge planning: TBD Shane Barlow MD Division of Hospitalist Medicine Inpatient Medical Services[facility]: PERFECT SERVE documented in this encounterSUMMA Work Phone: [phone]) 691-814310-11-2022 Hospital Discharge instructions* Discharge Instr - Other Orders* FELISHA Pool CNP - 12/05/2021 1:43 PM EDT We have been holding your Triamterine/Hydrochlorothiazide in the hospital; your blood pressures have been stable. Please check with Dr. Perales to see if he wants you to continue this at your follow-up appointment. You will need to monitor your blood pressure daily and keep record of this. If your blood pressures are consistently greater than 150/90, please reach out to Dr. Chetan FLETCHER. 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 * Flank Pain ([place]) documented in this encounterSUMMA Work Phone: Consult note Author Dana Gonzales [facility] February 13, 2023 3:56pm Note Date/Time February 13, 2023 3:56pm [facility] Medical Records Department [address] [place] [address] Counseling Note - Pharmacy 02/13/23 1555 MR#: [id number] Acct: [id number] Name: JAYLEN QUEEN Rep #:[id number] : 1960 62 From: Dana Gonzales PCP: CHERYL BASILIO Status:ADM TAMMY Y Location: [place] [address] Pharmacy [facility] has performed discharge medication reconciliation and counseling for this patient. 1. ASPIRIN 81MG PO DAILY 2. CLOPIDOGREL 75MG PO DAILY 3. OXYCODONE 5MG PO Q8H PRN PAIN The patient's discharge medication list was reviewed for discrepancies and discrepancies were resolved. The patient was counseled on the following discharge medications and changes in medications for homegoing were reviewed. The Reason for Use, instructions for use, and potential side effects were reviewed for all new medications. The patient's questions regarding all of their medications were answered. The patient was able to verbally demonstrate an understanding of their dischargemedications. Medications at Discharge Home Medications cabergoline 0.5 mg tablet 0.5 mg PO 2XW 01/30/23 fenofibrate 160 mg tablet 160 mg PO DAILY 01/30/23 levothyroxine 100 mcg capsule 100 mcg PO DAILY 01/30/23 niacin 1,000 mg tablet,extended release 1,000 mg PO QHS 01/30/23 rivaroxaban 20 mg tablet 20 mg PO QPM 01/30/23 rosuvastatin 10 mg tablet (Crestor) 10 mg PO DAILY 01/30/23 tadalafil 5 mg tablet 5 mg PO DAILY 01/30/23 tamsulosin 0.4 mg capsule 0.4 mg PO DAILY 01/30/23 aspirin 81 mg tablet,delayed release 81 mg PO BREAKFAST #30 tabs 02/13/23 clopidogrel 75 mg tablet 75 mg PO DAILY #30 tabs 02/13/23 oxycodone 5 mg tablet 5 mg PO Q8H PRN PRN Pain Score 4-10 2 days #6 tabs 02/13/23 02/13/23 1556 <Electronically signed by Dana Gonzales> Date _ Dana Gonzales Cosigner Signature (if applicable): Date CC: ~ Signed [facility] Work Phone: Evaluation + Plan note Future Appointments Appointment Date:01/09/2024 09:45:00 AM Scheduled Provider:BASIM RAMSEY MD Location:[facility] Appointment Type:ENDO OV Diagnostic Tests Pending * Testosterone,Free and Total 01/03/24 [facility] Evaluation + Plan note Future Appointments Appointment Date:04/21/2024 09:00:00 AM Scheduled Provider: Location:[facility] Appointment Type:ENDO Nurse Diagnostic Tests Pending * Testosterone,Free and Total 04/20/24 * Thyroid Stim Immunoglobulin 04/20/24 Future Scheduled Tests Laboratory* Thyroid Stim Immunoglobulin 04/16/24 * Testosterone,Free and Total 04/16/24 * Testosterone,Free and Total 08/14/24 * Calcium Level Ionized 08/14/24 * Estradiol Level 08/14/24 * Prolactin Level 04/16/24 * Prostate Specific Antigen 04/16/24 * Thyroid Stimulating Hormone 04/16/24 * Thyroid Stimulating Hormone 08/14/24 * Free T4 04/16/24 * Free T4 08/14/24 * Calcium Random Urine 04/16/24 * Calcium Random Urine 08/14/24 * Complete Blood Count 04/16/24 * Complete Blood Count 08/14/24 * Creatinine Random Urine 04/16/24 * Creatinine Random Urine 08/14/24 * Free T3 04/16/24 * Lipid Profile 04/16/24 * Lipid Profile 08/14/24 * PTH, Intact 04/16/24 * PTH, Intact 08/14/24 * Vitamin D Level 08/14/24 * Complete Metabolic Panel 04/16/24 [facility] Evaluation note* Diagnosis 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) documented in this encounter [facility] Work Phone: Evaluation note* Diagnosis Flank pain- Primary Abdominal pain, unspecified site documented in this encounter [facility] Work Phone: Evaluation note* Diagnosis Flank pain- Primary Abdominal pain, unspecified site Acute right flank pain Abdominal pain, unspecified site Chills Chills (without fever) Pyelonephritis Pyelonephritis, unspecified Infection due to extended-spectrum [id number] Escherichia coli Other and unspecified Escherichia coli (E. coli) Sepsis due to Escherichia coli with acute renal failure without septic shock (HCC) Unspecified abdominal pain documented in this encounter [facility] Work Phone: Evaluation note* Diagnosis Right flank pain- Primary Abdominal pain, unspecified site [facility] Diagnosis Combined arterial insufficiency and corporo-venous occlusive erectile dysfunction- Primary [facility] Diagnosis Combined arterial insufficiency and corporo-venous occlusive erectile dysfunction- Primary [facility]* Diagnosis Recurrent UTI- Primary Urinary tract infection, site not specified Dysuria Urinary frequency Urinary urgency Urgency of urination Chronic right-sided low back pain without sciatica Leukocytes in urine Other nonspecific finding on examination of urine Hematuria, unspecified type [facility]* Diagnosis Recurrent UTI- Primary Urinary tract infection, site not specified Dysuria Urinary frequency Urinary urgency Urgency of urination Chronic right-sided low back pain without sciatica Leukocytes in urine Other nonspecific finding on examination of urine Hematuria, unspecified type documented in this encounter [facility]* Diagnosis Urinary tract infection symptoms- Primary documented in this encounter [facility]* Diagnosis Acute cystitis without hematuria- Primary [facility]* Diagnosis Pleural effusion- Primary Unspecified pleural effusion History of tobacco abuse Centrilobular emphysema (HCC) [facility] Diagnosis Complex renal cyst Other specified congenital cystic kidney disease [facility] Diagnosis Recurrent UTI- Primary Urinary tract infection, site not specified Benign prostatic hyperplasia without lower urinary tract symptoms [facility]* Diagnosis Leg swelling- Primary Swelling of limb Acute deep vein thrombosis (DVT) of left lower extremity, unspecified vein (HCC) [facility] Diagnosis Acute deep vein thrombosis (DVT) of left lower extremity, unspecified vein (HCC)- Primary Acute deep vein thrombosis (DVT) of left lower extremity, unspecified vein (HCC) Ambulatory dysfunction [facility] Diagnosis Acute deep vein thrombosis (DVT) of left lower extremity, unspecified vein (HCC)- Primary Acute deep vein thrombosis (DVT) of left lower extremity, unspecified vein (HCC) [facility]* Diagnosis Acute deep vein thrombosis (DVT) of left lower extremity, unspecified vein (HCC) [facility] Diagnosis Acute deep vein thrombosis (DVT) of left lower extremity, unspecified vein (HCC)- Primary [facility]* Diagnosis Deep vein thrombosis (DVT) of proximal vein of left lower extremity, unspecified chronicity (HCC)- Primary [facility]* Diagnosis Flank pain- Primary Abdominal pain, unspecified site 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) [facility] Diagnosis Flank pain- Primary Abdominal pain, unspecified site 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) [facility]* Diagnosis Right flank pain Abdominal pain, unspecified site 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) [facility] Diagnosis Acute right flank pain- Primary 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) [facility]* Diagnosis Sebaceous cyst of left eyelid- Primary [facility]* Diagnosis Bleeding- Primary Unspecified hemorrhage [facility]* Diagnosis Chronic deep vein thrombosis (DVT) of iliofemoral vein (HCC)- Primary [facility]* Diagnosis 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) [facility] Diagnosis Macroprolactinoma (HCC)- Primary Benign neoplasm of pituitary gland and craniopharyngeal duct (pouch) Pituitary adenoma (HCC) 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 Hypercalcemia [facility]* Diagnosis Hypogonadism in male- Primary documented in this encounter [facility]* Diagnosis 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) [facility]* Diagnosis Onset Date Resolution Status Ileofemoral deep vein thrombosis 2022 acute [facility] Work Phone: Evaluation note* Diagnosis Onset Date Resolution Status Ileofemoral deep vein thrombosis 2022 acute Ileofemoral deep vein thrombosis 2022 acute [facility] Work Phone: Evaluation note* Diagnosis Onset Date Resolution Status Deep vein thrombosis (DVT) o f iliac vein of left lower extremity chronic BPH (benign prostatic hyperplasia) acute Elevated blood pressure reading acute Fatty liver acute High cholesterol acute History of diverticulitis ac [place] History of renal disease acu te Pituitary abnormality acute Smoker acute Thyroid disease acute Deep vein thrombosis (DVT) o f iliac vein of left lower extremity chronic [facility] Work Phone: Evaluation note* Diagnosis Onset Date Resolution Status Deep vein thrombosis (DVT) o f iliac vein of left lower extremity chronic BPH (benign prostatic hyperplasia) acute Elevated blood pressure reading acute Fatty liver acute High cholesterol acute History of diverticulitis ac [place] History of renal disease acu te Pituitary abnormality acute Smoker acute Thyroid disease acute Deep vein thrombosis (DVT) o f iliac vein of left lower extremity chronic Flank pain acute History of renal disease acu te [facility] Work Phone: Evaluation note* Diagnosis Onset Date Resolution Status Ileofemoral deep vein thrombosis 2022 acute Ileofemoral deep vein thrombosis 2022 acute Deep vein thrombosis (DVT) o f iliac vein of left lower extremity chronic BPH (benign prostatic hyperplasia) acute Elevated blood pressure reading acute Fatty liver acute High cholesterol acute History of diverticulitis ac [place] History of renal disease acu te Pituitary abnormality acute Smoker acute Thyroid disease acute Deep vein thrombosis (DVT) o f iliac vein of left lower extremity chronic Flank pain acute History of renal disease acu te Flank pain acute Ileofemoral deep vein thrombosis 2022 acute [facility] Work Phone: Evaluation note* Diagnosis Onset Date Resolution Status Ileofemoral deep vein thrombosis 2022 acute Ileofemoral deep vein thrombosis 2022 acute Deep vein thrombosis (DVT) o f iliac vein of left lower extremity chronic BPH (benign prostatic hyperplasia) acute Elevated blood pressure reading acute Fatty liver acute High cholesterol acute History of diverticulitis ac [place] History of renal disease acu te Pituitary abnormality acute Smoker acute Thyroid disease acute Deep vein thrombosis (DVT) o f iliac vein of left lower extremity chronic Flank pain acute History of renal disease acu te Flank pain acute Ileofemoral deep vein thrombosis 2022 acute Flank pain acute [facility] Work Phone: Evaluation note* Diagnosis Onset Date Resolution Status Ileofemoral deep vein thrombosis 2022 acute Deep vein thrombosis (DVT) o f iliac vein of left lower extremity chronic BPH (benign prostatic hyperplasia) acute Elevated blood pressure reading acute Fatty liver acute High cholesterol acute History of diverticulitis ac [place] History of renal disease acu te Pituitary abnormality acute Smoker acute Thyroid disease acute Deep vein thrombosis (DVT) o f iliac vein of left lower extremity chronic Flank pain acute History of renal disease acu te Flank pain acute Ileofemoral deep vein thrombosis 2022 acute Flank pain acute [facility] Work Phone: Evaluation note* Diagnosis Onset Date Resolution Status Deep vein thrombosis (DVT) o f iliac vein of left lower extremity chronic BPH (benign prostatic hyperplasia) acute Elevated blood pressure reading acute Fatty liver acute High cholesterol acute History of diverticulitis ac [place] History of renal disease acu te Pituitary abnormality acute Smoker acute Thyroid disease acute Deep vein thrombosis (DVT) o f iliac vein of left lower extremity chronic Flank pain acute History of renal disease acu te Flank pain acute Ileofemoral deep vein thrombosis 2022 acute Flank pain acute [facility] Work Phone: Evaluation note* Diagnosis Pituitary adenoma (HCC)- Primary Benign neoplasm of pituitary gland and craniopharyngeal duct (pouch) Hypercalcemia 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) Other anterior pituitary disorders documented in this encounter [facility] note* Diagnosis Hypogonadism in male 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) documented in this encounter [facility] note* Diagnosis Pituitary adenoma (HCC) Benign neoplasm of pituitary gland and craniopharyngeal duct (pouch) documented in this encounter [facility] note* Diagnosis Acute cystitis without hematuria- Primary Flank pain Abdominal pain, unspecified site Essential hypertension, benign [facility]* Diagnosis Acute cystitis without hematuria- Primary Flank pain Abdominal pain, unspecified site Essential hypertension, benign [facility]* Diagnosis Acute right-sided low back pain without sciatica- Primary Right flank pain Abdominal pain, unspecified site documented in this encounter [facility] note* Diagnosis Complex renal cyst- Primary Other specified congenital cystic kidney disease [facility]* Diagnosis Right flank pain- Primary Abdominal pain, unspecified site Acute right-sided low back pain without sciatica documented in this encounter [facility] note* Diagnosis Right flank pain- Primary Abdominal pain, unspecified site Acute right-sided low back pain without sciatica [facility] Narrative No data available for this section [facility] Discharge instructions No data available for this section [facility] Progress note No data available for this section [facility] Reason for referral (narrative)* Consultation (Routine) - Closed Specialty Diagnoses / Procedures Referred By Juan t Referred To Contact Vascular Surgery Diagnoses Acute deep vein thrombosis (DVT) of left lower extremity, unspecified vein (HCC) Procedures IN OFFICE/OUTPATIENT [facility] 60-74 MINUTES Cheryl Basilio MD [address] [place] [address] [facility] [address] [place] [address] Referral ID Status Reason Start Date Expiration Date V isits Requested Visits Authorized [id number] Closed Specialty Services Required 12/03/2022 12/03/2023 1 1 [facility] Health Assessments Diagnosis Primary hyperparathyroidism (HCC) Primary hyperparathyroidism Prolactin secreting pituitary adenoma (HCC) 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 Advance Directives No Advanced Directives Records FoundDocuments on File Type Date Recorded 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 Latest Code Status on File Code Status Date Activated Date Inactivated Comments Full Code 12/01/2021 1:34 PM Latest Code Status on File Code Status Date Activated Date Inactivated Comments Full Code 09/18/2022 1:19 AM Latest Code Status on File Code Status Date Activated Date Inactivated Comments Full Code 09/18/2022 1:19 AM 09/23/2022 3:25 PM Latest Code Status on File Code Status Date Activated Date Inactivated Comments Full Code 09/18/2022 1:19 AM 09/23/2022 3:25 PM Latest Code Status on File Code Status Date Activated Date Inactivated Comments Full Code 10/13/2022 4:25 AM Code Status History Code Status Date Activated Date Inactivated Comments Full Code 09/18/2022 1:19 AM 09/23/2022 3:25 PM Latest Code Status on File Code Status Date Activated Date Inactivated Comments Full Code 10/13/2022 4:25 AM 10/16/2022 6:08 PM Latest Code Status on File Code Status Date Activated Date Inactivated Comments Full Code 10/13/2022 4:25 AM 10/16/2022 6:08 PM Code Status History Code Status Date Activated Date Inactivated Comments Full Code 09/18/2022 1:19 AM 09/23/2022 3:25 PM Latest Code Status on File Code Status Date Activated Date Inactivated Comments Full Code 12/25/2022 8:25 AM 12/25/2022 7:01 PM Code Status History Code Status Date Activated Date Inactivated Comments Full Code 10/13/2022 4:25 AM 10/16/2022 6:08 PM Full Code 09/18/2022 1:19 AM 09/23/2022 3:25 PM Latest Code Status on File Code Status Date Activated Date Inactivated Comments Full Code 12/25/2022 8:25 AM 12/25/2022 7:01 PM Code Status History Code Status Date Activated Date Inactivated Comments Full Code 10/13/2022 4:25 AM 10/16/2022 6:08 PM Full Code 09/18/2022 1:19 AM 09/23/2022 3:25 PM Advance Directive Response Recorded Date/ Time Living Will No February 06, 2 023 8:38am Power of Pulp Machine Operator No February 06, 2023 8:38am Advance Directive Response Recorded Date/ Time Living Will No February 06, 2 023 9:38am Power of Pulp Machine Operator No February 06, 2023 9:38am Date Activated Date Inactivated Comments 12/25/2022 8:25 AM 12/25/2022 7:01 PM Date Activated Date Inactivated Comments 10/13/2022 4:25 AM 10/16/2022 6:08 PM Date Activated Date Inactivated Comments 09/18/2022 1:19 AM 09/23/2022 3:25 PM Summary Purpose Family History No Family History Records FoundNo Family History Records FoundNo Family History Records FoundNo Family History Records Found No data available for this section No data available for this section No Family History Records FoundNo Family History Records Found Reason for Referral Specialty Diagnoses / Procedures Referred By Contac t Referred To Contact Radiology Diagnoses History of tobacco abuse Centrilobular emphysema (HCC) Pleural effusion Procedures CT lung screening low dose Donna Roberts DO [address] [place] [address] [address] [place], [place] [id number] Referral ID Status Reason Start Date Expiration Date V isits Requested Visits Authorized [id number] Pending Review 10/10/2022 04/08/2023 1 1 Specialty Diagnoses / Procedures Referred By Contac t Referred To Contact Diagnoses History of tobacco abuse Centrilobular emphysema (HCC) Procedures Complete PFT pre and post bronchodilator Donna Roberts DO [address] [place] [id number] Referral ID Status Reason Start Date Expiration Date V isits Requested Visits Authorized [id number] Incomplete 10/10/2022 04/08/2023 1 1 Specialty Diagnoses / Procedures Referred By Contac t Referred To Contact Diagnoses Benign prostatic hyperplasia without lower urinary tract symptoms Cheryl Basilio MD [address] [facility] [address] [place] [address] Referral ID Status Reason Start Date Expiration Date V isits Requested Visits Authorized [id number] Pending Review 1 1 Specialty Diagnoses / Procedures Referred By Contac t Referred To Contact Pacheco Negron MD [address] [place] [address] Referral ID Status Reason Start Date Expiration Date V isits Requested Visits Authorized [id number] Pending Review 1 1 Specialty Diagnoses / Procedures Referred By Contac t Referred To Contact Cardiology Diagnoses Acute deep vein thrombosis (DVT) of left lower extremity, unspecified vein (HCC) Procedures Vascular US lower extremity venous duplex bilateral Cheryl Basilio MD [address] [facility] [address] [place] [address] [facility] [address] [place] [address] Referral ID Status Reason Start Date Expiration Date Visits Re quested Visits Authorized [id number] Closed 11/14/2022 05/13/2023 1 1 Specialty Diagnoses / Procedures Referred By Contac t Referred To Contact Radiology Diagnoses Pituitary adenoma (HCC) Procedures MR pituitary w and wo IV contrast Rocio Calix MD [address] [place] [address] [address] [place] [address] Referral ID Status Reason Start Date Expiration Date V isits Requested Visits Authorized [id number] Pending Review 07/31/2023 07/30/2024 1 1 Referral ID Status Reason Start Date Expiration Date Visits Re quested Visits Authorized [id number] Closed 07/31/2023 07/30/2024 1 1 Specialty Diagnoses / Procedures Referred By Contac t Referred To Contact Radiology Diagnoses Right flank pain Acute right-sided low back pain without sciatica Procedures CT lumbar spine wo IV contrast Lake Perales MD [address] [facility] [place] [address] Referral ID Status Reason Start Date Expiration Date V isits Requested Visits Authorized [id number] Pending Review 03/06/2022 09/02/2022 1 1 Specialty Diagnoses / Procedures Referred By Contac t Referred To Contact Physical Therapy Diagnoses Right flank pain Acute right-sided low back pain without sciatica Procedures IN OFFICE/OUTPATIENT [facility] 60-74 MINUTES Lake Perales MD [address] [facility], [place] [address] [facility] [address] [place] [address] Referral ID Status Reason Start Date Expiration Date Visits Requested Visits Authorized [id number] Pending Review Eval and Treat 03/27/2022 09/23/2022 99 99 Chief Complaint and Reason for Visit Chief Complaint CONSULT-DVT LT LEG PAIN, DVT ASSESS EXTENT OF DVT Reason for Visit Ileofemoral deep vei n thrombosis Chief Complaint CONSULT-DVT LT LEG PAIN, DVT ASSESS EXTENT OF DVT POSSIBLE THROMDECTOMY POSSIBLE THROMDECTOMY POSSIBLE THROMDECTOMY Reason for Visit Ileofemoral deep vei n thrombosis Ileofemoral deep vein thrombosis Chief Complaint CONSULT-DVT LT LEG PAIN, DVT ASSESS EXTENT OF DVT PREOP POSSIBLE THROMDECTOMY POSSIBLE THROMDECTOMY POSSIBLE THROMDECTOMY SUTURE REMOVAL 3 W POST OP EST NEW PT - PPW SENT Reason for Visit 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 BPH (benign prostatic hyperplasia) Elevated blood pressure reading Fatty liver High cholesterol History of diverticulitis History of renal disease Pituitary abnormality Smoker Thyroid disease 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 Chief Complaint CONSULT-DVT LT LEG PAIN, DVT ASSESS EXTENT OF DVT PREOP POSSIBLE THROMDECTOMY POSSIBLE THROMDECTOMY POSSIBLE THROMDECTOMY SUTURE REMOVAL 3 W POST OP EST NEW PT - PPW SENT DISCUSS KIDNEY DISEASE Reason for Visit 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 BPH (benign prostatic hyperplasia) Elevated blood pressure reading Fatty liver High cholesterol History of diverticulitis History of renal disease Pituitary abnormality Smoker Thyroid disease 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 Flank pain History of renal disease Chief Complaint LT LEG PAIN, DVT ASSESS EXTENT OF DVT PREOP POSSIBLE THROMDECTOMY POSSIBLE THROMDECTOMY POSSIBLE THROMDECTOMY SUTURE REMOVAL 3 W POST OP EST NEW PT - PPW SENT DISCUSS KIDNEY DISEASE ISSUES WITH RT KIDNEY Reason for Visit Ileofemoral deep vei n thrombosis Ileofemoral deep vein thrombosis 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 BPH (benign prostatic hyperplasia) Elevated blood pressure reading Fatty liver High cholesterol History of diverticulitis History of renal disease Pituitary abnormality Smoker Thyroid disease 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 Flank pain History of renal disease Flank pain Ileofemoral deep vein thrombosis Chief Complaint POSSIBLE THROMDECTOM Y POSSIBLE THROMDECTOMY POSSIBLE THROMDECTOMY SUTURE REMOVAL 3 W POST OP EST NEW PT - PPW SENT DISCUSS KIDNEY DISEASE ISSUES WITH RT KIDNEY RT KIDNEY PAIN Reason for Visit Ileofemoral deep vei n thrombosis Ileofemoral deep vein thrombosis 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 BPH (benign prostatic hyperplasia) Elevated blood pressure reading Fatty liver High cholesterol History of diverticulitis History of renal disease Pituitary abnormality Smoker Thyroid disease 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 Flank pain History of renal disease Flank pain Ileofemoral deep vein thrombosis Flank pain Chief Complaint SUTURE REMOVAL 3 W POST OP EST NEW PT - PPW SENT DISCUSS KIDNEY DISEASE ISSUES WITH RT KIDNEY RT KIDNEY PAIN Reason for Visit Ileofemoral deep vei n thrombosis 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 BPH (benign prostatic hyperplasia) Elevated blood pressure reading Fatty liver High cholesterol History of diverticulitis History of renal disease Pituitary abnormality Smoker Thyroid disease 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 Flank pain History of renal disease Flank pain Ileofemoral deep vein thrombosis Flank pain Chief Complaint 3 W POST OP EST NEW PT - PPW SENT DISCUSS KIDNEY DISEASE ISSUES WITH RT KIDNEY RT KIDNEY PAIN ABD/RT FLANK PAIN KIDNEY PAIN Reason for Visit 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 BPH (benign prostatic hyperplasia) Elevated blood pressure reading Fatty liver High cholesterol History of diverticulitis History of renal disease Pituitary abnormality Smoker Thyroid disease 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 Flank pain History of renal disease Flank pain Ileofemoral deep vein thrombosis Flank pain Chief Complaint Admit Date CONCERN FOR BOIL February 25, 2024 10:08am LEFT LEG PRESSURE AND SWELLING February 262024 1:16pm EST NEW PT- FOR[facility] EM PT - [place] Februa ry 2024 10:21am LEFT LEG SWELLING April 13, 2024 9:03am Referral Order May 14, 2024 10: 04am CONCERN FOR UTI May 28, 2024 12:5 2pm Reason for Visit Admit Date Sebaceous cyst of scrotum February 25, 2024 10:08am Left leg swelling March 18, 2024 1 :16pm Stenosis of iliac vein March 18 1:16pm Venous insufficiency March 18, 2024 1:16pm High cholesterol March 31, 2024 1 0:21am Pituitary abnormality March 31, 2024 10:21am Thyroid disease March 31, 2024 1 0:21am BPH (benign prostatic hyperplasia) Febru scottie 2024 10:21am Elevated blood pressure reading March 31, 2024 10:21am Strain of lumbar region May 28, 2024 12:52pm Additional Source Comments Care Teams (unrecognized sec tion and content) Team Status: Active Member Role Status Dates CHERYL BASILIO Primary Care Provider Active Team Status: Inactive Member Role Status Dates Dr. Ryan Ceja MD Attending Provider Active Team Status: Active Member Role Status Dates Dr. Ryan Ceja MD Attending Provider Active Team Status: Inactive Member Role Status Dates Dr. Ryan Ceja MD Attending Provider, Referring Pro vider Active PRAFUL LUNA Primary Care Provider Active Team Status: Active Member Role Status Dates Dr. Ryan Ceja MD Attending Provider, Referring Pro vider Active PRAFUL LUNA Primary Care Provider Active Team Status: Active Member Role Status Dates RUBI Casillas Primary Care Provider Active Team Status: Active Member Role Status Dates Dr. Ryan Ceja MD Attending Provider, Referring Pro vider Active Team Status: Active Member Role Status Dates Dr. Ryan Ceja MD Admit Provider, Att ending Provider, Referring Provider, Other Provider Active PRAFUL LUNA Primary Care Provider Active Dr. Fabio Day MD Other Provider Active Team Status: Active Member Role Status Dates Dr. Ryan Ceja MD Admit Provider, Ref erring Provider, Other Provider Active PRAFUL LUNA Primary Care Provider Active Dr. Fabio Day MD Other Provider Active EDMUND Jovel Attending Provider Active Team Status: Active Member Role Status Dates Dr. Janette King MD Attending Provider Activ e Dr. Ryan Ceja MD Referring Provider Active Team Status: Inactive Member Role Status Dates EDMUND Jovel Attending Provider Active Team Status: Inactive Member Role Status Dates RUBI Casillas Attending Provider Active Team Status: Inactive Member Role Status Dates Dr. Ryan Ceja MD Admit Provider, Att ending Provider, Referring Provider Active PRAFUL LUNA Primary Care Provider Active Dr. Fabio Day MD Other Provider Active Team Status: Inactive Member Role Status Dates RUBI Casillas Primary Care Provid er, Attending Provider, Referring Provider Active Ux Engineer Relationship Specialty Start Date [place] [address] PCP - General 11/12/15 Ux Engineer Relationship Specialty Start Date [place] [address] PCP - General 11/12/15 Ux Engineer Relationship Specialty Start Date [place] [address] PCP - General 11/12/15 Ux Engineer Relationship Specialty Start Date [place] [address] PCP - General 11/12/15 Ux Engineer Relationship Specialty Start Date End Date [facility] [place] [address] PCP - General 11/12/15 Ux Engineer Relationship Specialty Start Date End Date Lake Perales [place] [address] PCP - General 11/12/15 Ux Engineer Relationship Specialty Start Date End Date Lake Perales MD [address] [facility] [place] [address] PCP - General 11/12/15 Ux Engineer Relationship Specialty Start Date End Date Lake Perales MD 25 [place] [address] PCP - General 11/12/15 Ux Engineer Relationship Specialty Start Date End Date Lake Perales MD 25 [place] [address] PCP - General 11/12/15 Ux Engineer Relationship Specialty Start Date End Date Lake Perales MD 25 [place] [address] PCP - General 11/12/15 Ux Engineer Relationship Specialty Start Date End Date Lake Perales MD [address] [facility] [place] [address] PCP - General 11/12/15 Ux Engineer Relationship Specialty Start Date End Date Lake Perales MD 25 [place] [address] PCP - General 11/12/15 Ux Engineer Relationship Specialty Start Date End Date Lake Perales MD 25 [place] [address] PCP - General 11/12/15 Ux Engineer Relationship Specialty Start Date End Date Lake Perales MD 25 [place] [address] PCP - General 11/12/15 Ux Engineer Relationship Specialty Start Date End Date Lake Perales MD 25 [place] [address] PCP - General 11/12/15 Ux Engineer Relationship Specialty Start Date End Date Lake Perales MD 25 [place] [address] PCP - General 11/12/15 Ux Engineer Relationship Specialty Start Date End Date Lake Perales MD 25 [place] [address] PCP - General 11/12/15 Ux Engineer Relationship Specialty Start Date [place] [address] PCP - General 11/12/15 Ux Engineer Relationship Specialty Start Date End Date Lake Perales MD 25 [place] [address] PCP - General 11/12/15 10/15/22 Cheryl Basilio MD [address] [place] [address] PCP - General Internal Medicine 10/16/22 Ux Engineer Relationship Specialty Start Date End Date Lake Perales MD 25 [facility] [place] [address] PCP - General 11/12/15 10/15/22 Cheryl Basilio MD [address] [facility] [address] [place] [address] PCP - General Internal Medicine 10/16/22 Ux Engineer Relationship Specialty Start Date End Date Cheryl Basilio MD [address] [facility] [address] [place] [address] PCP - General Internal Medicine 10/16/22 Ux Engineer Relationship Specialty Start Date End Date Cheryl Basilio MD [address] [facility] [address] [place] [address] PCP - General Internal Medicine 10/16/22 Ux Engineer Relationship Specialty Start Date End Date Cheryl Basilio MD [address] [facility] [address] [place] [address] PCP - General Internal Medicine 10/16/22 Ux Engineer Relationship Specialty Start Date End Date Cheryl Basilio MD [address] [facility] [address] [place] [address] PCP - General Internal Medicine 10/16/22 Ux Engineer Relationship Specialty Start Date End Date Cheryl Basilio MD [address] [facility] [address] [place] [address] PCP - General Internal Medicine 10/16/22 Ux Engineer Relationship Specialty Start Date End Date Cheryl Basilio MD [address] [facility] [address] [place] [address] PCP - General Internal Medicine 10/16/22 Ux Engineer Relationship Specialty Start Date End Date Cheryl Basilio MD [address] [facility] [address] [place] [address] PCP - General Internal Medicine 10/16/22 Ux Engineer Relationship Specialty Start Date End Date Cheryl Basilio MD [address] [facility] [address] [place] [address] PCP - General Internal Medicine 10/16/22 Ux Engineer Relationship Specialty Start Date End Date Cheryl Basilio MD [address] [facility] [address] [place] [address] PCP - General Internal Medicine 10/16/22 Jacob Arauz MD [address] [facility] [address] [place] [address] Consulting Physician Vascular Surgery 12/10/22 Ux Engineer Relationship Specialty Start Date End Date Cheryl Basilio MD [address] [facility] [address] [place] [address] PCP - General Internal Medicine 10/16/22 Jacob Arauz MD [address] [facility] [address] [place] [address] Consulting Physician Vascular Surgery 12/10/22 Ux Engineer Relationship Specialty Start Date End Date Cheryl Basilio MD [address] [facility] [address] [place] [address] PCP - General Internal Medicine 10/16/22 Jacob Arauz MD [address] [place] [address] Consulting Physician Vascular Surgery 12/10/22 Ux Engineer Relationship Specialty Start Date End Date Cheryl Basilio MD [address] [facility] [address] [place] [address] PCP - General Internal Medicine 10/16/22 Jacob Arauz MD [address] [place] [address] Consulting Physician Vascular Surgery 12/10/22 Ux Engineer Relationship Specialty Start Date End Date Cheryl Basilio MD [address] [facility] [address] [place] [address] PCP - General Internal Medicine 10/16/22 Jacob Arauz MD [address] [place] [address] Consulting Physician Vascular Surgery 12/10/22 Ux Engineer Relationship Specialty Start Date End Date Cheryl Basilio MD [address] [facility] [address] [place] [address] PCP - General Internal Medicine 10/16/22 Jacob Arauz MD [address] [place] [address] Consulting Physician Vascular Surgery 12/10/22 Ux Engineer Relationship Specialty Start Date End Date Cheryl Basilio MD [address] [facility] [address] [place] [address] PCP - General Internal Medicine 10/16/22 Jacob Arauz MD [address] [place] [address] Consulting Physician Vascular Surgery 12/10/22 Ux Engineer Relationship Specialty Start Date End Date Cheryl Basilio MD [address] [facility] [address] [place] [address] PCP - General Internal Medicine 10/16/22 Jacob Arauz MD [address] [place] [address] Consulting Physician Vascular Surgery 12/10/22 Ux Engineer Relationship Specialty Start Date End Date Cheryl Basilio MD [address] [facility] [address] [place] [address] PCP - General Internal Medicine 10/16/22 Jacob Arauz MD [address] [place] [id number] Consulting Physician Vascular Surgery 12/10/22 Ux Engineer Relationship Specialty Start Date End Date Cheryl Basilio MD [address] [facility] [address] [place] [address] PCP - General Internal Medicine 10/16/22 Jacob Arauz MD [address] [facility] [address] [place] [address] Consulting Physician Vascular Surgery 12/10/22 Ux Engineer Relationship Specialty Start Date End Date Cheryl Basilio MD [address] [facility] [address] [place] [address] PCP - General Internal Medicine 10/16/22 Jacob Arauz MD [address] [place] [address] Consulting Physician Vascular Surgery 12/10/22 Ux Engineer Relationship Specialty Start Date End Date Cheryl Basilio MD [address] [place] [address] [address] [place] [address] PCP - General Internal Medicine 10/16/22 Jacob Arauz MD [address] [facility] [address] [place] [address] Consulting Physician Vascular Surgery 12/10/22 Ux Engineer Relationship Specialty Start Date End Date Cheryl Basilio MD [address] [place] [address] [address] [place] [address] PCP - General Internal Medicine 10/16/22 Jacob Arauz MD [address] [place] [address] Consulting Physician Vascular Surgery 12/10/22 Ux Engineer Relationship Specialty Start Date End Date Cheryl Basilio MD [address] [place] [address] [address] [place] [address] PCP - General Internal Medicine 10/16/22 Jacob Arauz MD [address] [place] [address] [place] [address] Consulting Physician Vascular Surgery 12/10/22 Ux Engineer Relationship Specialty Start Date End Date Cheryl Basilio MD [address] [place] [address] [address] [place] [address] PCP - General Internal Medicine 10/16/22 Jacob Arauz MD [address] [facility] [address] [place] [address] Consulting Physician Vascular Surgery 12/10/22 Ux Engineer Relationship Specialty Start Date End Date Cheryl Basilio MD [address] [place] [address] [address] [place] [address] PCP - General Internal Medicine 10/16/22 Jacob Arauz MD [address] [facility] [address] [place] [address] Consulting Physician Vascular Surgery 12/10/22 Ux Engineer Relationship Specialty Start Date End Date Cheryl Basilio MD PCP - General Internal Medicine 10/16/22 Jacob Arauz MD [address] [facility] [address] [place] [address] Consulting Physician Vascular Surgery 12/10/22 Ux Engineer Relationship Specialty Start Date End Date Cheryl Basilio MD [address] [place] [address] PCP - General Internal Medicine 04/30/23 Jacob Arauz MD [address] [facility] [address] [place] [address] Consulting Physician Vascular Surgery 12/10/22 Team Status: Inactive Member Role Status Dates EDMUND Mercedes Attending Provider Active RUBI Casillas Primary Care Provider, Referring Provider Active Team Status: Inactive Member Role Status Dates RUBI Casillas Primary Care Provider Active EDMUND Mercedes Attending Provider Active Team Status: Active Member Role Status Dates RUBI Casillas Primary Care Provider Active Dr. Bull Lopez MD Attending Provider, Referr ing Provider Active Team Status: Inactive Member Role Status Dates RUBI Casillas Primary Care Provider Active Dr. Bull Lopez MD Attending Provider, Referr ing Provider Active Team Status: Active Member Role Status Dates RUBI Casillas Primary Care Provid er, Attending Provider, Referring Provider Active Ux Engineer Relationship Specialty Start Date End Date Silvestre Sexton [address] [place] [phone] PCP - General Internal Medicine 07/31/23 Jacob Arauz MD [address] [place] [address] Consulting Physician Vascular Surgery 12/10/22 Ux Engineer Relationship Specialty Start Date End Date Silvestre Sexton [address] [place] [phone] PCP - General Internal Medicine 07/31/23 Jacob Arauz MD [address] [place] [address] Consulting Physician Vascular Surgery 12/10/22 Ux Engineer Relationship Specialty Start Date End Date Silvestre Sexton [address] [place] [phone] PCP - General Internal Medicine 07/31/23 Jacob Arauz MD [address] [place] [address] Consulting Physician Vascular Surgery 12/10/22 Ux Engineer Relationship Specialty Start Date End Date Lake Perales MD [address] [place] [place] [address] PCP - General 11/12/15 Ux Engineer Relationship Specialty Start Date End Date Lake Perales MD [facility] [place] [address] PCP - General 11/12/15 Ux Engineer Relationship Specialty Start Date End Date Lake Perales MD [facility] [place] [address] PCP - General 11/12/15 Ux Engineer Relationship Specialty Start Date End Date Lake Perales MD [address] [place] [address] PCP - General 11/12/15 Ux Engineer Relationship Specialty Start Date End Date Lake Perales MD [address] [place] [address] PCP - General 11/12/15 Ux Engineer Relationship Specialty Start Date End Date Lake Perales MD [address] [place] [address] PCP - General 11/12/15 Ux Engineer Relationship Specialty Start Date End Date Lake Perales MD [address] [place] [address] PCP - General 11/12/15 Ux Engineer Relationship Specialty Start Date End Date Lake Perales MD [address] [place] [address] PCP - General 11/12/15 Ux Engineer Relationship Specialty Start Date End Date Lake Perales MD [address] [place] [address] PCP - General 11/12/15 Team Status: Active Member Role Status Dates Dr. Justice Bailey , DO Primary Care Provider Active Team Status: Inactive Member Role Status Dates RUBI Casillas Primary Care Provider Active Start: February 25, 2024 End: February 25, 2024 RUBI Casillas Referring Provider Active S tart: February 25, 2024 End: February 25, 2024 David Puentes PA, PA Attending Provider Active Start: February 25, 2024 End: February 25, 2024 Team Status: Inactive Member Role Status Dates Sanjana Ferullo , DIVISION COMMANDER-C Primary Care Provider Active Start: March 18, 2024 End: March 18, 2024 Sanjana Hale NP-C Referring Provider Active S tart: March 18, 2024 End: March 18, 2024 EDMUND Jovel Attending Provider Active Star t: March 18, 2024 End: March 18, 2024 Team Status: Inactive Member Role Status Dates Sanjana Hale DIVISION COMMANDER-C Referring Provider Active S tart: March 31, 2024 End: March 31, 2024 Dr. Justice Bailey DO Primary Care Provider Active Start: March 31, 2024 End: March 31, 2024 Dr. Justice Bailey DO Attending Provider Active Start: March 31, 2024 End: March 31, 2024 Team Status: Inactive Member Role Status Dates EDMUND Jovel Attending Provider Active Star t: April 13, 2024 End: April 13, 2024 EDMUND Jovel Referring Provider Active Star t: April 13, 2024 End: April 13, 2024 Dr. Justice Bailey DO Primary Care Provider Active Start: April 13, 2024 End: April 13, 2024 Team Status: Active Member Role Status Dates Dr. Justice Bailey DO Primary Care Provider Active Start: April 13, 2024 Dr. Ryan Ceja MD Attending Provider Active S tart: April 13, 2024 EDMUND Jovel Referring Provider Active Star t: April 13, 2024 Team Status: Active Member Role Status Dates Dr. Justice Bailey DO Primary Care Provider Active Start: May 14, 2024 EDMUND Mercedes Attending Provider Active St art: May 14, 2024 Team Status: Inactive Member Role Status Dates Dr. Justice Bailey DO Primary Care Provider Active Start: May 28, 2024 End: May 28, 2024 Dr. Justice Bailey DO Referring Provider Active Start: May 28, 2024 End: May 28, 2024 EDMUND Wild Attending Provider Active Sta rt: May 28, 2024 End: May 28, 2024 Team Status: Inactive Member Role Status Dates Dr. Justice Bailey DO Primary Care Provider Active Start: May 28, 2024 End: May 28, 2024 EDMUND Wild Attending Provider Active Sta rt: May 28, 2024 End: May 28, 2024 Reason for Visit (unrecogniz ed section and content) Reason Comments Abdominal Pain Reason Onset Date Comments Urinary Tract Infection 12/01/2021 Been pau ated outpt, getting worse. Reason Comments Back Pain Wants to check for a UTI before leaving out of state Reason Comments Erectile Dysfunction Per pt problem in the bedroom Reason Comments Med Refill Reason Comments lower back pain Reason Comments Back Pain Reason Onset Date Comments Results 09/16/2022 Specialty Diagnoses / Procedures Referred By Contac t Referred To Contact Radiology Diagnoses Recurrent UTI Acute right-sided low back pain without sciatica Procedures CT abdomen pelvis w contrast Lake Perales MD [address] [facility], [facility] [place] [address] Referral ID Status Reason Start Date Expiration Date V isits Requested Visits Authorized [id number] Authorized 08/29/2022 02/25/2023 1 1 Reason Comments COPD Reason Comments New Patient Est care Reason Comments Leg Pain Reason Onset Date Comments ER Follow-up 10/15/2022 Reason Comments Leg Pain Specialty Diagnoses / Procedures Referred By Contac t Referred To Contact Diagnoses Ambulatory dysfunction Acute deep vein thrombosis (DVT) of left lower extremity, unspecified vein (HCC) Procedures . Yared Allison MD [address] [address] [facility] Telemetry [address] [place] [phone] Referral ID Status Reason Start Date Expiration Date Visits Re quested Visits Authorized [id number] 1 1 Reason Onset Date Comments Med Refill 10/31/2022 Reason Onset Date Comments Leg Swelling 11/13/2022 Reason Comments Follow-up C/o left leg swellin g Reason Onset Date Comments Release of Information 11/14/2022 Specialty Diagnoses / Procedures Referred By Contac t Referred To Contact Cardiology Diagnoses Acute deep vein thrombosis (DVT) of left lower extremity, unspecified vein (HCC) Procedures Vascular US lower extremity venous duplex bilateral Cheryl Basilio MD [address] [facility] [address] [place] [address] [facility] Cardiology [address] [place] [address] Referral ID Status Reason Start Date Expiration Date Visits Re quested Visits Authorized [id number] Closed 11/14/2022 05/13/2023 1 1 Reason Onset Date Comments Error (VOID this visit) 11/15/2022 Reason Onset Date Comments Results 11/15/2022 Leg Swelling 11/15/2022 Reason Comments Leg Pain Pt has DVT in L leg since mid September. Pt taking blood thinner. Pain, swelling, and stiffness worsening in L leg starting end of last week. Specialty Diagnoses / Procedures Referred By Juan molina Referred To Contact Cardiology Diagnoses Acute deep vein thrombosis (DVT) of left lower extremity, unspecified vein (HCC) Procedures Vascular US IVC iliac vein duplex complete Jacob Arauz MD [address] [place] [id number] Referral ID Status Reason Start Date Expiration Date Visits Re quested Visits Authorized [id number] Closed 12/10/2022 06/08/2023 1 1 Reason Onset Date Comments Error (VOID this visit) 12/17/2022 Reason Onset Date Comments Advice Only 12/17/2022 Reason Comments Difficulty Urinating Flank Pain Reason Onset Date Comments Flank Pain 12/22/2022 Specialty Diagnoses / Procedures Referred By Juan molina Referred To Contact Diagnoses 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) [I82.529] Procedures IN PRQ TRANSLUMINAL MECHANICAL THROMBECTOMY VEIN IN OPEN/PERQ PLACEMENT INTRAVASCULAR STENT SAME 1ST LEFT ILIOFEMORAL DEEP VEIN THROMBOSIS, THROMBECTOMY AND STENTING TRANSCATHETER PLACEMENT OF AN INTRAVASCULAR STENT(S), OPEN OR PERCUTANEOUS INITIAL VEIN Jacob Arauz MD [address] [place] [address] [facility] Main Or [address] [facility] [place] [address] Referral ID Status Reason Start Date Expiration Date Visits Re quested Visits Authorized [id number] 1 1 Reason Comments Post-op Problem Surgery today for cl ot removal in left lower leg, presenting status post-op saturated tegaderm and gauze behind the left knee, blood draining down leg upon arrival Reason Onset Date Comments Results 11/15/2022 Reason Comments Post-op 1st po L iliofemoral DVT thrombectomy 12/21/22 Reason Onset Date Comments [facility] refuses to fill script 01/02/2023 Reason Comments Follow-up Hypothyroidism pituitary macroprolactinoma Reason Onset Date Comments Medication Problem 01/04/2023 Reason Onset Date Comments To Dr Ruiz 01/25/2023 Reason Onset Date Comments Med Refill 01/30/2023 Reason Comments Follow-up Macroprolactinoma Hypothyroidism Reason Onset Date Comments Results 08/01/2023 Specialty Diagnoses / Procedures Referred By Juan molina Referred To Contact Radiology Diagnoses Pituitary adenoma (HCC) Procedures MR pituitary w and wo IV contrast Rocio Calix MD [address] [place] [address] [place] [address] Referral ID Status Reason Start Date Expiration Date Visits Re quested Visits Authorized [id number] Closed 07/31/2023 07/30/2024 1 1 Reason Comments Flank Pain right Other Foul odor in urine Reason Comments Back Pain Right lower - ongoin g not any better urine is clear Still taking Augmentin Pt has not heard from urology for appt yet Reason Onset Date Comments Med Refill 03/13/2022 03/13/22 Pt call ing for a refill medication completely out levothyroxine (Synthroid, Levoxyl) 100 MCG tablet [id number] - [place], [place] - [address] [place] [address] Pt leaving to go out of state Saturday Reason Onset Date Comments Med Refill 03/13/2022 Reason Onset Date Comments Auth for CT 03/22/2022 Reason Onset Date Comments Auth for CT 03/22/2022 Scheduled Active and Recently Administ ered Medications (unrecognized section and content) Medication Order 11/26/2021 11/27/2021 11/28/2021 0.9 % sodium chloride bolus (COMPLETED) 1,000 mL (9.18 mL/kg), IntraVENous, at 983.6 mL/hr, Administer over 61 Minutes, ONCE, On 11/27/21 at 2212, For 1 dose 2319 (New Bag - Provider: Felicia Hoff RN) 0002 (Stopped - Provider: Felicia Hoff RN) HYDROcodone-acetaminophen (NORCO) 5-325 MG per tablet 1 tablet 1 tablet, Oral, ONCE, 1 dose, On Sat11/27/21 at 2320, Maximum dose of acetaminophen is 4000 mg from all sources in 24 hours. 2327 (Not Given - Provider: Felicia Hoff RN - Reason: Patient/family refused - Comment: due to constipation history requiring bowel resection) ketorolac (TORADOL) injection 15 mg (COMPLETED) Ketorolac is contraindicated in patients with advanced renal impairment and in patients at risk of renal failure due to volume depletion. For 65 years of age and older OR weight less than 50 kg, use 15 mg IV every 6 hours; MAX dose: 60 mg/day. Dose greater than 30 mg must be administered via intramuscular route. Do not administer for more than 5 days., 15 mg, IntraVENous, ONCE, 1 dose, On Sat11/27/21 at 2212, Do not administer for more than 5 days. 2311 (Given - Provider: Felicia Hoff RN) Scheduled Medication Order 12/04/2021 12/05/2021 12/06/2021 0.9 % sodium chloride bolus 2,000 mL (18.7 mL/kg), IntraVENous, at 991.7 mL/hr, Administer over 121 Minutes, ONCE, On Sat12/01/21 at 1114, For 1 dose aspirin EC tablet 81 mg 81 mg, Oral, DAILY, First dose on Sat12/01/21 at 1900, Until Discontinued 1559 (Not Given - Provider: Nallely Villegas RN - Reason: Other - Comment: Patient taking his own home medication this morning) 0900 (Not Given - Provider: Nallely Villegas RN - Reason: Patient/family refused - Comment: Patient taking his ASA from home) 0942 (Not Given - Provider: Pearl Danielle RN - Reason: Patient/family refused - Comment: took own meds in am) cabergoline (DOSTINEX) tablet 0.75 mg 0.75 mg, Oral, USER SPECIFIED (Once per day on Sat), First dose on Sat12/02/21 at 0900, Until Discontinued, Non-formulary medication. Physically verified by pharmacy on 12/02/21 - MJS. Hazardous Medication -- Refer to facility policy for handling and disposal. 2106 (Not Given - Provider: Sierra Barahona RN - Reason: Other - Comment: pt took his home medications) enoxaparin Sodium (LOVENOX) injection 30 mg (CANCELED) 30 mg, SubCUTAneous, 2 TIMES DAILY, First dose on Sat12/01/21 at 1335, Until Discontinued, Indication of Use: Prophylaxis-DVT/PE 0913 (Given - Provider: Nallely Villegas RN) ertapenem (INVanz) 1,000 mg in sodium chloride 0.9 % 50 mL IVPB 1,000 mg, IntraVENous, EVERY 24 HOURS, 5 doses, First dose on 12/03/21 at 0600, Last dose on Lorenza 12/07/21 at 0600, Incompatible with dextrose containing solutions. 0518 (New Bag - Provider: Sharon Cross RN)0558 (Stopped - Provider: Sharon Cross RN) 0557 (New Bag - Provider: Sharon Cross RN)0652 (Stopped - Provider: Sharon Cross RN) 0611 (New Bag - Provider: Sierra Barahona RN)0642 (Stopped - Provider: Sierra Barahona RN) fenofibrate (TRIGLIDE) tablet 160 mg 160 mg, Oral, DAILY, First dose on 12/02/21 at 0900, Until Discontinued, Substituted for Fenofibrate (Non-Formulary Dose). 1559 (Not Given - Provider: Nallely Villegas RN - Reason: Other - Comment: Patient took his own home medication this morning) 0900 (Not Given - Provider: Nallely Villegas RN - Reason: Patient/family refused - Comment: Patient taking his Fenofibrate from home) 0942 (Not Given - Provider: Pearl Danielle RN - Reason: Patient/family refused - Comment: takes at night) levothyroxine (SYNTHROID) tablet 100 mcg 100 mcg, Oral, DAILY, First dose on 12/02/21 at 0900, Until Discontinued, Tube feeding (TF) interaction, obtain physician order to manage, recommend holding TF for 30 minutes before and after dose. 1558 (Not Given - Provider: Nallely Villegas RN - Reason: Other - Comment: Patient took his own home medication this morning) 0900 (Not Given - Provider: Nallely Villegas RN - Reason: Patient/family refused - Comment: Patient taking his levothyoxine from home) 0942 (Not Given - Provider: Pearl Danielle RN - Reason: Patient/family refused - Comment: took own meds in am) melatonin capsule 10 mg 10 mg, Oral, NIGHTLY, First dose on 12/02/21 at 0230, Until Discontinued 2127 (Given - Provider: Sharon Cross RN) 2105 (Given - Provider: Sierra Barahona RN) 2100 (Due) nicotine (NICODERM CQ) 21 MG/24HR 1 patch 1 patch, TransDERmal, Administer over 24 Hours, DAILY, First dose on 12/02/21 at 0230, Apply new patch to nonhairy, clean, dry skin on the upper body or upper outer arm. Rotate patch sites. Notify pharmacy if patient or provider prefers patch to be removed at bedtime and replaced in the morning. Hazardous Medication -- Refer to facility policy for handling and disposal. 1554 (Not Given - Provider: Nallely Villegas RN - Reason: Patient/family refused) 0900 (Not Given - Provider: Nallely Villegas RN - Reason: Patient/family refused) 0943 (Not Given - Provider: Pearl Danielle RN - Reason: Patient/family refused) rosuvastatin (CRESTOR) tablet 10 mg 10 mg, Oral, DAILY, First dose on 12/02/21 at 0900, Until Discontinued 1600 (Not Given - Provider: Nallely Villegas RN - Reason: Other - Comment: Patient took his own home medication this morning.) 2019 (Not Given - Provider: Nallely Villegas RN - Reason: Patient/family refused - Comment: Patient taking his Rosuvastatin from home) 0942 (Given - Provider: Pearl Danielle RN) sodium chloride flush 0.9 % injection 5-40 mL 5-40 mL, IntraVENous, EVERY 12 HOURS SCHEDULED (2 times per day), First dose on Sat12/01/21 at 2100, Until Discontinued, For Line Patency: Peripheral IV = 5 mL; Midline or Central Line = 10 mL/lumen. If following IV push medication, administer flush at same rate as the IV push. Flush volume is determined by type of infusion therapy being given. For non-viscous solutions use: Peripheral IV = 5 mL Midline or Central Line = 10 mL/lumen For viscous solutions (i.e. blood components, parenteral nutrition, contrast media, or after obtaining blood sample) use: Peripheral IV = 10 mL Midline or Central Line = 20 mL/lumen 1601 (Given - Provider: Nallely Villegas RN)2128 (Given - Provider: Sharon Cross RN) 1100 (Not Given - Provider: Nallely Villegas RN - Reason: Other - Comment: Administered at a later time. NS not scanned)2107 (Given - Provider: Sierra Barahona RN) 0947 (Not Given - Provider: Pearl Danielle RN - Reason: Other - Comment: discharge)2100 (Due) Continuous Medication Order 12/04/2021 12/05/2021 12/06/2021 0.9 % sodium chloride infusion IntraVENous, at 75 mL/hr, CONTINUOUS, Starting on Sat12/01/21 at 1335 0800 (Not Given - Provider: Nallely Villegas RN - Reason: Patient/family refused) 0800 (Not Given - Provider: Nallely Villegas RN - Reason: Patient/family refused) 0948 (Not Given - Provider: Pearl Danielle RN - Reason: Patient/family refused) PRN Medication Order 12/04/2021 12/05/2021 12/06/2021 0.9 % sodium chloride infusion IntraVENous, at 5-250 mL/hr, PRN, if patient receiving piggyback infusions and maintenance fluids are not ordered OR KVO fluids to protect IV site / prevent frequent line interruptions/ long duration, Starting on Sat12/01/21 at 1332, For piggyback infusion, administer at same rate as piggyback for a total of 25 mL. Enter 25 mL into dose field and piggyback rate into rate field of order. If piggyback is infusing at a rate less than 100 mL/hr, enter 25 mL into dose field and 100 mL/hr into rate field of order. For KVO fluids, enter rate of 20 mL/hr or less into rate field of order. acetaminophen (TYLENOL) suppository 650 mg(Linked Group 1) 650 mg, Rectal, EVERY 6 HOURS PRN, Starting on Sat12/01/21 at 1332, Until Discontinued, Pain Mild (1-3), Fever, For temp greater than 100.4 F (38 C), Administer if oral route cannot be used. 0511 (See Alternative - Provider: Sharon Cross RN) acetaminophen (TYLENOL) tablet 650 mg(Linked Group 1) 650 mg, Oral, EVERY 6 HOURS PRN, Starting on Sat12/01/21 at 1332, Until Discontinued, Pain Mild (1-3), Fever, For temp greater than 100.4 F (38 C), Maximum dose of acetaminophen is 4000 mg from all sources in 24 hours. 0511 (Given - Provider: Sharon Cross RN) ipratropium-albuterol (DUONEB) nebulizer solution 1 ampule 1 ampule, Inhalation, EVERY 6 HOURS PRN, Starting on Sat12/01/21 at 1337, Until Discontinued, Shortness of Breath, Initiate RT Bronchodilator Protocol: No LORazepam (ATIVAN) injection 1 mg 1 mg, IntraVENous, EVERY 6 HOURS PRN, Starting on Sat12/03/21 at 1025, Until Discontinued, Anxiety, Sleep ondansetron (ZOFRAN) injection 4 mg(Linked Group 2) 4 mg, IntraVENous, EVERY 6 HOURS PRN, Starting on Sat12/01/21 at 1332, Until Discontinued, Nausea, Vomiting, Administer if oral route cannot be used. ondansetron (ZOFRAN-ODT) disintegrating tablet 4 mg(Linked Group 2) 4 mg, Oral, EVERY 8 HOURS PRN, Starting on Sat12/01/21 at 1332, Until Discontinued, Nausea, Vomiting oxyCODONE (ROXICODONE) immediate release tablet 5 mg 5 mg, Oral, EVERY 4 HOURS PRN, Starting on Sat12/03/21 at 1729, Until Discontinued, Pain Moderate (4-6), Pain Severe (7-10) 0911 (Given - Provider: Nallely Villegas RN)1551 (Given - Provider: Nallely Villegas RN) polyethylene glycol (GLYCOLAX) packet 17 g 17 g, Oral, DAILY PRN, Starting on Sat12/01/21 at 1332, Until Discontinued, Constipation, First line therapy for constipation sodium chloride flush 0.9 % injection 5-40 mL 5-40 mL, IntraVENous, PRN, Starting on Sat12/01/21 at 1332, Until Discontinued, Line Care, After every IV line use, For Line Patency: Peripheral IV = 5 mL; Midline or Central Line = 10 mL/lumen. If following IV push medication, administer flush at same rate as the IV push. Flush volume is determined by type of infusion therapy being given. For non-viscous solutions use: Peripheral IV = 5 mL Midline or Central Line = 10 mL/lumen For viscous solutions (i.e. blood components, parenteral nutrition, contrast media, or after obtaining blood sample) use: Peripheral IV = 10 mL Midline or Central Line = 20 mL/lumen Linked Groups Order Group 1: acetaminophen (TYLENOL) tablet 650 mgJump to med 650 mg, Oral, EVERY 6 HOURS PRN, Starting on Sat12/01/21 at 1332, Until Discontinued, Pain Mild (1-3), Fever, For temp greater than 100.4 F (38 C)
Maximum dose of acetaminophen is 4000 mg from all sources in 24 hours.
Or acetaminophen (TYLENOL) suppository 650 mgJump to med 650 mg, Rectal, EVERY 6 HOURS PRN, Starting on Sat12/01/21 at 1332, Until Discontinued, Pain Mild (1-3), Fever, For temp greater than 100.4 F (38 C)
Administer if oral route cannot be used.
Group 2: ondansetron (ZOFRAN-ODT) disintegrating tablet 4 mgJump to med 4 mg, Oral, EVERY 8 HOURS PRN, Starting on Sat12/01/21 at 1332, Until Discontinued, Nausea, Vomiting Or ondansetron (ZOFRAN) injection 4 mgJump to med 4 mg, IntraVENous, EVERY 6 HOURS PRN, Starting on Sat12/01/21 at 1332, Until Discontinued, Nausea, Vomiting
Administer if oral route cannot be used.
Scheduled Medication Order 10/10/2022 10/11/2022 10/12/2022 enoxaparin (Lovenox) syringe 160 mg (COMPLETED) 160 mg (rounded from 160.5 mg = 1.5 mg/kg 107 kg), SubCUTAneous, Once, On Sat10/12/22 at 1550, For 1 dose, Indication of Use: Treatment-DVT/PE 1550 (Given - Provid er: Lauren Del Angel RN) HYDROmorphone (Dilaudid) injection 1 mg (COMPLETED) 1 mg, IntraVENous, Once, On Sat10/12/22 at 1350, For 1 dose, If oral and IV narcotics ordered, use oral first and only use IV if oral is ineffective or cannot take oral. Do Not give oral and IV within 1 hour of each other unless specifically ordered. 1353 (Given - Provid er: Lauren Del Angel RN) ondansetron (Zofran) injection 4 mg (COMPLETED) 4 mg, IntraVENous, Once, On Sat10/12/22 at 1350, For 1 dose 1352 (Given - Provid er: Lauren Del Angel RN) oxyCODONE-acetaminophen (Percocet) 5-325 MG per tablet 1 tablet (COMPLETED) 1 tablet, Oral, Once, On Sat10/12/22 at 1610, For 1 dose, Maximum dose of acetaminophen is 4000 mg from all sources in 24 hours. 1606 (Given - Provid er: Lauren Del Angel RN) Scheduled Medication Order 10/14/2022 10/15/2022 10/16/2022 bisacodyl (Dulcolax) suppository 10 mg (COMPLETED) 10 mg, Rectal, Once, On Sat10/14/22 at 0830, For 1 dose 0911 (Given - Provider: Angela Harris RN) bisacodyl (Dulcolax) suppository 10 mg (COMPLETED) 10 mg, Rectal, Once, On 10/15/22 at 1645, For 1 dose 1735 (Given - Provider: Nasra Bass RN) enoxaparin (Lovenox) syringe 105 mg 105 mg (rounded from 107 mg = 1 mg/kg 107 kg), SubCUTAneous, Every 12 hours, First dose on 10/13/22 at 0600, Indication of Use: Treatment-DVT/PE 0620 (Given - Provider: Alejandra Blanco LPN)1718 (Given - Provider: Angela Harris RN) 0549 (Given - Provider: Monique Souza, GARY)1735 (Given - Provider: Nasra Bass, GARY) 0500 (Given - Provider: Monique Souza, GARY)1800 (Canceled Entry - Provider: Automatic Discharge Provider - Comment: Automatically canceled at discontinue of medication order) fenofibrate (Triglide) tablet 160 mg 160 mg, Oral, Daily, First dose on 10/13/22 at 0900, Substituted for Fenofibrate (Non-Formulary Dose). 0803 (Given - Provider: Angela Harris RN) 0839 (Given - Provider: Nasra Bass RN) 0855 (Given - Provider: Nasra Bass RN) levothyroxine (Synthroid, Levoxyl) tablet 100 mcg 100 mcg, Oral, Daily, First dose on 10/13/22 at 0900, Tube feeding (TF) interaction, obtain physician order to manage, recommend holding TF for 30 minutes before and after dose. 0803 (Given - Provider: Angela Harris RN) 0839 (Given - Provider: Nasra Bass RN) 0855 (Given - Provider: Nasra Bass RN) pantoprazole (ProtoNix) EC tablet 40 mg 40 mg, Oral, Daily before breakfast, First dose on 10/14/22 at 0700, Do not crush, chew, or split. 0620 (Given - Provider: Alejandra Blanco LPN) 0549 (Given - Provider: Monique Souza RN) 0500 (Given - Provider: Monique Souza RN) polyethylene glycol (PEG) 3350 (Miralax) packet 17 g 17 g, Oral, 2 times daily, First dose (after last modification) on 10/15/22 at 2100, 1st line for treatment of constipation - give scheduled if no bowel movement in past 24 hours. 2109 (Given - Provider: Monique Souza RN) 0855 (Given - Provider: Nasra Bass RN) rosuvastatin (Crestor) tablet 10 mg 10 mg, Oral, Daily, First dose on 10/13/22 at 0900 0804 (Given - Provider: Angela Harris RN) 0839 (Given - Provider: Nasra Bass RN) 0855 (Given - Provider: Nasra Bass RN) senna-docusate sodium (Senokot-S) 8.6-50 MG tablet 2 tablet 2 tablet, Oral, 2 times daily, First dose on 10/14/22 at 1200 1215 (Given - Provider: Angela Harris RN)2134 (Given - Provider: Monique Souza RN) 0839 (Given - Provider: Nasra Bass RN)2109 (Given - Provider: Monique Souza RN) 0855 (Given - Provider: Nasra Bass RN) tamsulosin (Flomax) 24 hr capsule 0.4 mg 0.4 mg, Oral, Daily, First dose on 10/13/22 at 0900, Do not crush, chew, or split. 0803 (Given - Provider: Angela Harris RN) 0839 (Given - Provider: Nasra Bass RN) 0855 (Given - Provider: Nasra Bass RN) PRN Medication Order 10/14/2022 10/15/2022 10/16/2022 acetaminophen (Tylenol) suppository 650 mg(Linked Group 1) 650 mg, Rectal, Every 6 hours PRN, mild pain (1-3), fever, For temp greater than 100.4 F (38 C), Starting on 10/13/22 at 0424, Administer if oral route cannot be used. Maximum dose of acetaminophen is 4000 mg from all sources in 24 hours. 1245 (See Alternative - Provider: Nasra Bass RN) acetaminophen (Tylenol) tablet 650 mg(Linked Group 1) 650 mg, Oral, Every 6 hours PRN, mild pain (1-3), fever, For temp greater than 100.4 F (38 C), Starting on 10/13/22 at 0424, Maximum dose of acetaminophen is 4000 mg from all sources in 24 hours. 1245 (Given - Provider: Nasra Bass RN) diphenhydrAMINE (BENADryl) capsule 50 mg(Linked Group 2) 50 mg, Oral, Nightly PRN, sleep, Starting on 10/13/22 at 2239 0012 (See Alternative - Provider: Monique Souza RN)2134 (See Alternative - Provider: Monique Souza RN) 2109 (See Alternative - Provider: Monique Souza, GARY) HYDROmorphone (Dilaudid) injection 0.5 mg 0.5 mg, IntraVENous, Every 2 hour PRN, severe pain (7-10), Starting on Sat10/12/22 at 2323, If oral and IV narcotics ordered, use oral first and only use IV if oral is ineffective or cannot take oral. Do Not give oral and IV within 1 hour of each other unless specifically ordered. 0314 (Given - Provider: Monique Souza RN)0758 (Given - Provider: Angela Harris RN)1502 (Given - Provider: Angela Harris RN - Comment: post ambulation)2134 (Given - Provider: Monique Souza RN) magnesium hydroxide (Milk of Magnesia) 400 MG/5ML suspension 30 mL 30 mL, Oral, 2 times daily PRN, constipation, Starting on 10/14/22 at 1159, Follow dose with 8 oz of water. 1441 (Given - Provider: Angela Harris RN) Melatonin disintegrating tablet 10 mg(Linked Group 2) 10 mg, Oral, Nightly PRN, sleep, Starting on 10/13/22 at 2239 0012 (See Alternative - Provider: Monique Souza RN)2133 (See Alternative - Provider: Monique Souza RN) 2109 (See Alternative - Provider: Monique Souza RN) ondansetron (Zofran) injection 4 mg(Linked Group 3) 4 mg, IntraVENous, Every 6 hours PRN, nausea, vomiting, Starting on 10/13/22 at 0424, 1st Line. Give IV if patient is unable to take orally. If inadequate response within 60 minutes, proceed to next-line agent or contact provider if no further options ordered. 0757 (See Alternative - Provider: Angela Harris RN) ondansetron ODT (Zofran-ODT) disintegrating tablet 4 mg(Linked Group 3) 4 mg, Oral, Every 8 hours PRN, nausea, vomiting, Starting on 10/13/22 at 0424, 1st Line. If inadequate response within 60 minutes, proceed to next-line agent or contact provider if no further options ordered. Patient should allow tablet to dissolve on tongue. Do not remove from blister pack until just before administering. 0757 (Given - Provider: Angela Harris RN) oxyCODONE-acetaminophen (Percocet) 5-325 MG per tablet 1 tablet 1 tablet, Oral, Every 6 hours PRN, severe pain (7-10), Starting on 10/12/22 at 2254, Maximum dose of acetaminophen is 4000 mg from all sources in 24 hours. 0012 (Given - Provider: Monique C Harley, RN)0620 (Given - Provider: Alejandra Blanco LPN)1227 (Given - Provider: Angela Harris RN)1823 (Given - Provider: Angela Harris RN) 0549 (Given - Provider: Monique Souza RN)1734 (Given - Provider: Nasra Bass RN)2240 (Given - Provider: Monique Souza, GARY) 0500 (Given - Provider: Monique Souza RN)1104 (Given - Provider: Nasra Bass RN) polyethylene glycol (PEG) 3350 (Miralax) packet 17 g (CANCELED) 17 g, Oral, Daily PRN, constipation, Starting on 10/13/22 at 0424, 1st line for treatment of constipation - give scheduled if no bowel movement in past 24 hours. 0758 (Given - Provider: Angela Harris RN) 1242 (Given - Provider: Nasra Bass RN) traZODone (Desyrel) tablet 50 mg(Linked Group 2) 50 mg, Oral, Nightly PRN, sleep, Starting on 10/13/22 at 2239 0012 (Given - Provider: Monique Souza RN)2134 (Given - Provider: Monique Souza RN) 2110 (Given - Provider: Monique Souza RN) Linked Groups Order Group 1: acetaminophen (Tylenol) tablet 650 mgJump to med 650 mg, Oral, Every 6 hours PRN, mild pain (1-3), fever, For temp greater than 100.4 F (38 C), Starting on 10/13/22 at 0424
Maximum dose of acetaminophen is 4000 mg from all sources in 24 hours.
Or acetaminophen (Tylenol) suppository 650 mgJump to med 650 mg, Rectal, Every 6 hours PRN, mild pain (1-3), fever, For temp greater than 100.4 F (38 C), Starting on 10/13/22 at 0424
Administer if oral route cannot be used. Maximum dose of acetaminophen is 4000 mg from all sources in 24 hours.
Group 2: Melatonin disintegrating tablet 10 mgJump to med 10 mg, Oral, Nightly PRN, sleep, Starting on 10/13/22 at 2239 Or traZODone (Desyrel) tablet 50 mgJump to med 50 mg, Oral, Nightly PRN, sleep, Starting on 10/13/22 at 2239 Or diphenhydrAMINE (BENADryl) capsule 50 mgJump to med 50 mg, Oral, Nightly PRN, sleep, Starting on 10/13/22 at 2239 Group 3: ondansetron ODT (Zofran-ODT) disintegrating tablet 4 mgJump to med 4 mg, Oral, Every 8 hours PRN, nausea, vomiting, Starting on 10/13/22 at 0424
1st Line. If inadequate response within 60 minutes, proceed to next-line agent or contact provider if no further options ordered. Patient should allow tablet to dissolve on tongue. Do not remove from blister pack until just before administering.
Or ondansetron (Zofran) injection 4 mgJump to med 4 mg, IntraVENous, Every 6 hours PRN, nausea, vomiting, Starting on 10/13/22 at 0424
1st Line. Give IV if patient is unable to take orally. If inadequate response within 60 minutes, proceed to next-line agent or contact provider if no further options ordered.
Scheduled Medication Order 12/20/2022 12/21/2022 12/22/2022 cefTRIAXone (Rocephin) 1,000 mg in sodium chloride 0.9 % 50 mL IVPB Mini-Bag Plus (COMPLETED) 1,000 mg, IntraVENous, at 100 mL/hr, Administer over 30 Minutes, Once, On 12/22/22 at 0955, For 1 dose, Mini-Bag Plus bag, Suspected Indication (Select all that apply): Urinary Tract Infection 1019 (New Bag - Prov ider: Estefany Dunlap RN)1049 (Stopped - Provider: Estefany Dunlap RN) ketorolac (Toradol) injection 15 mg (COMPLETED) 15 mg, IntraVENous, Once, On 12/22/22 at 0955, For 1 dose 1015 (Given - Provid er: Estefany Dunlap RN) Scheduled Medication Order 12/23/2022 12/24/2022 12/25/2022 acetaminophen (Tylenol) tablet 1,000 mg (COMPLETED) 1,000 mg, Oral, Once, On Sat12/25/22 at 0915, For 1 dose, Preprocedure, Maximum dose of acetaminophen is 4000 mg from all sources in 24 hours. Do not administer if patient has taken tylenol <6 hours earlier. Do not give if contraindicated ie. patient has active liver disease or cirrhosis. 0916 (Given - Provid er: Disha Chen RN) ceFAZolin in dextrose 4% (Ancef) IVPB 2,000 mg (COMPLETED) 2,000 mg, IntraVENous, Administer over 30 Minutes, Once, On Sat12/25/22 at 0830, For 1 dose, Preprocedure, Administer within 1 hour prior to incision. Recommend to repeat in 3-4 hours after initial dose if still intra-op. premix bag, Suspected Indication (Select all that apply): Surgical Prophylaxis 1220 (Given - Provid er: FELISHA Winn CRNA)1414 (Anesthesia Volume Adjustment - Provider: FELISHA Winn CRNA) erythromycin (Romycin) 5 MG/GM ophthalmic ointment Left Eye, Every 8 hours scheduled (3 times per day), First dose on Sat12/25/22 at 1645, For 3 days, Phase II/On Unit, Apply Amount per Dose: 0.5 inch (~1 cm) per dose. If this does not improve please contact your service order expediter 1645 (Due)2200 (Due) famotidine (Pepcid) tablet 20 mg (COMPLETED) 20 mg, Oral, Once, On Sat12/25/22 at 0915, For 1 dose, Preprocedure 0916 (Given - Provid er: Disha Chen RN) gabapentin (Neurontin) capsule 100 mg (COMPLETED) 100 mg, Oral, Once, On Sat12/25/22 at 0915, For 1 dose, Preprocedure, For Age >69 or Low GFR. 0916 (Given - Provid er: Disha Chen RN) sodium chloride 0.9% (NS) flush 10 mL 10 mL, IntraVENous, Every 12 hours scheduled (2 times per day), First dose on Sat12/25/22 at 0900, Preprocedure 0900 (Due) sodium chloride 0.9% (NS) flush 10 mL 10 mL, IntraVENous, Every 12 hours scheduled (2 times per day), First dose on Sat12/25/22 at 2100, Recovery (only) sodium chloride 0.9% (NS) flush 5-40 mL 5-40 mL, IntraVENous, Every 12 hours, First dose on Sat12/25/22 at 0830, Preprocedure, For Line Patency: Peripheral IV = 5 mL; Midline or Central Line = 10 mL/lumen. If following IV push medication, administer flush at same rate as the IV push. Flush volume is determined by type of infusion therapy being given. For non-viscous solutions use: Peripheral IV = 5 mL Midline or Central Line = 10 mL/lumen For viscous solutions (i.e. blood components, parenteral nutrition, contrast media, or after obtaining blood sample) use: Peripheral IV = 10 mL Midline or Central Line = 20 mL/lumen 0830 (Due) Continuous Medication Order 12/23/2022 12/24/2022 12/25/2022 lactated ringers infusion 125 mL/hr, IntraVENous, Continuous, Starting on Sat12/25/22 at 1430, Recovery (only) 1430 (Due) sodium chloride 0.9 % infusion 50 mL/hr, IntraVENous, Continuous, Starting on Sat12/25/22 at 0830, Preprocedure, Upon admission to sameday - please start iv if patient does not have iv access. 0854 ([facility] ider: Disha Chen RN) PRN Medication Order 12/23/2022 12/24/2022 12/25/2022 ALPRAZolam (Xanax) disintegrating tablet 0.25 mg 0.25 mg, Oral, PRN, anxiety, Starting on Sat12/25/22 at 0825, For 1 dose, Preprocedure, Using dry hands, place tablet on top of tongue and allow to disintegrate. Administration with water is not necessary. diphenhydrAMINE (BENADryl) injection 12.5 mg 12.5 mg, IntraVENous, Once PRN, itching, Starting on Sat12/25/22 at 1416, For 1 dose, Recovery (only) fentaNYL (Sublimaze) injection 25 mcg 25 mcg, IntraVENous, Every 5 min PRN, moderate pain (4-6), Starting on Sat12/25/22 at 1416, For 3 doses, Recovery (only), Phase I and Phase II- Initial therapy for moderate pain (4-6). Restricted to a 90 minute time frame starting when the patient can verbally state their pain score. If after 2 doses the pain score does not decrease by more than one point, then call the provider. If oral meds are utilized, do not return to initial therapy medications. fentaNYL (Sublimaze) injection 50 mcg 50 mcg, IntraVENous, Every 5 min PRN, severe pain (7-10), Starting on Sat12/25/22 at 1416, For 3 doses, Recovery (only), Phase I and Phase II- Initial therapy for severe pain (7-10). Restricted to a 90 minute time frame starting when the patient can verbally state their pain score. If after 2 doses the pain score does not decrease by more than one point, then call the provider. If oral meds are utilized, do not return to initial therapy medications. heparin 1,000 Units in sodium chloride 0.9 % 500 mL OR irrigation (CANCELED) As needed, Starting on Sat12/25/22 at 1243, Intraprocedure 1243 (Given - Provid er: Jacob Arauz MD) hydrALAZINE (Apresoline) injection 5 mg(Linked Group 1) 5 mg, IntraVENous, Every 15 min PRN, high blood pressure, for SBP greater than 160 mmHg for 2 consecutive measurements taken from different sites, Starting on Sat12/25/22 at 1416, For 2 doses, Recovery (only), PRN for SBP > 160 for 2 consecutive measurements, and if one of the following conditions is met: 1) If IV labetolol is ineffective. 2) If HR is under 60. 3) If patient has heart block, COPD or asthma. If both labetalol and hydralazine ineffective, notify anesthesia provider. iodixanol (VISIPaque) 320 MG/ML injection (COMPLETED) Continuous PRN, Starting on Sat12/25/22 at 1402, Intraprocedure 1402 ([facility] ider: Jacob Arauz MD) labetalol (Normodyne,Trandate) injection 5 mg(Linked Group 1) 5 mg, IntraVENous, Every 10 min PRN, high blood pressure, for SBP greater than 160 mmHg for 2 consecutive measurements taken from different sites., Starting on Sat12/25/22 at 1416, For 2 doses, Recovery (only), PRN for SBP >160 for 2 consecutive measurements, if HR is 60 or greater. If beta aldo is contraindicated (HR less than 60, heart block, COPD or asthma) use hydralazine IV order. ondansetron (Zofran) injection 4 mg 4 mg, IntraVENous, Once PRN, nausea, Starting on Sat12/25/22 at 1416, For 1 dose, Recovery (only), Initial antiemetic therapy. oxyCODONE (Roxicodone) immediate release tablet 10 mg(Linked Group 2) 10 mg, Oral, PRN, severe pain (7-10), Starting on Sat12/25/22 at 1416, For 1 dose, Recovery (only), PHASE II oxyCODONE (Roxicodone) immediate release tablet 5 mg(Linked Group 2) 5 mg, Oral, PRN, moderate pain (4-6), Starting on Sat12/25/22 at 1416, For 1 dose, Recovery (only), PHASE II sodium chloride 0.9 % bolus 500 mL 500 mL, IntraVENous, at 1,000 mL/hr, Administer over 0.5 Hours, PRN, Anti-nausea, Starting on Sat12/25/22 at 1416, Recovery (only), Indications: Anti-nausea sodium chloride 0.9 % infusion 5-250 mL/hr, IntraVENous, PRN, if patient receiving piggyback infusions and maintenance fluids are not ordered OR KVO fluids to protect IV site / prevent frequent line interruptions/ long duration, Starting on Sat12/25/22 at 0825, Preprocedure, For piggyback infusion, administer at same rate as piggyback for a total of 25 mL. Enter 25 mL into dose field and piggyback rate into rate field of order. If piggyback is infusing at a rate less than 100 mL/hr, enter 25 mL into dose field and 100 mL/hr into rate field of order. For KVO fluids, enter rate of 20 mL/hr or less into rate field of order. sodium chloride 0.9 % infusion 5-250 mL/hr, IntraVENous, PRN, if patient receiving piggyback infusions and maintenance fluids are not ordered OR KVO fluids to protect IV site / prevent frequent line interruptions / long duration, Starting on Sat12/25/22 at 0825, Preprocedure, For piggyback infusion, administer at same rate as piggyback for a total of 25 mL. Enter 25 mL into dose field and piggyback rate into rate field of order. If piggyback is infusing at a rate less than 100 mL/hr, enter 25 mL into dose field and 100 mL/hr into rate field of order. For KVO fluids, enter rate of 20 mL/hr or less into rate field of order. sodium chloride 0.9 % infusion 5-250 mL/hr, IntraVENous, PRN, if patient receiving piggyback infusions and maintenance fluids are not ordered OR KVO fluids to protect IV site / prevent frequent line interruptions/ long duration, Starting on Sat12/25/22 at 1416, Recovery (only), For piggyback infusion, administer at same rate as piggyback for a total of 25 mL. Enter 25 mL into dose field and piggyback rate into rate field of order. If piggyback is infusing at a rate less than 100 mL/hr, enter 25 mL into dose field and 100 mL/hr into rate field of order. For KVO fluids, enter rate of 20 mL/hr or less into rate field of order. sodium chloride 0.9% (NS) flush 10 mL 10 mL, IntraVENous, PRN, line care, Starting on Sat12/25/22 at 0825, Preprocedure, After every IV line use sodium chloride 0.9% (NS) flush 10 mL 10 mL, IntraVENous, PRN, line care, Starting on Sat12/25/22 at 1416, Recovery (only), After every IV line use sodium chloride 0.9% (NS) flush 5-40 mL 5-40 mL, IntraVENous, PRN, line care, After every IV line use, Starting on Sat12/25/22 at 0825, Preprocedure, For Line Patency: Peripheral IV = 5 mL; Midline or Central Line = 10 mL/lumen. If following IV push medication, administer flush at same rate as the IV push. Flush volume is determined by type of infusion therapy being given. For non-viscous solutions use: Peripheral IV = 5 mL Midline or Central Line = 10 mL/lumen For viscous solutions (i.e. blood components, parenteral nutrition, contrast media, or after obtaining blood sample) use: Peripheral IV = 10 mL Midline or Central Line = 20 mL/lumen Linked Groups Order Group 1: labetalol (Normodyne,Trandate) injection 5 mgJump to med 5 mg, IntraVENous, Every 10 min PRN, high blood pressure, for SBP greater than 160 mmHg for 2 consecutive measurements taken from different sites., Starting on Sat12/25/22 at 1416, For 2 doses, Recovery (only), PRN for SBP >160 for 2 consecutive measurements, if HR is 60 or greater. If beta aldo is contraindicated (HR less than 60, heart block, COPD or asthma) use hydralazine IV order. Or hydrALAZINE (Apresoline) injection 5 mgJump to med 5 mg, IntraVENous, Every 15 min PRN, high blood pressure, for SBP greater than 160 mmHg for 2 consecutive measurements taken from different sites, Starting on Sat12/25/22 at 1416, For 2 doses, Recovery (only), PRN for SBP > 160 for 2 consecutive measurements, and if one of the following conditions is met: 1) If IV labetolol is ineffective. 2) If HR is under 60. 3) If patient has heart block, COPD or asthma. If both labetalol and hydralazine ineffective, notify anesthesia provider. Group 2: oxyCODONE (Roxicodone) immediate release tablet 5 mgJump to med 5 mg, Oral, PRN, moderate pain (4-6), Starting on Sat12/25/22 at 1416, For 1 dose, Recovery (only), PHASE II Or oxyCODONE (Roxicodone) immediate release tablet 10 mgJump to med 10 mg, Oral, PRN, severe pain (7-10), Starting on Sat12/25/22 at 1416, For 1 dose, Recovery (only), PHASE II Scheduled Medication Order 12/23/2022 12/24/2022 12/25/2022 erythromycin (Romycin) 5 MG/GM ophthalmic ointment (COMPLETED) Left Eye, Once, On Sat12/25/22 at 1945, For 1 dose, Apply Amount per Dose: 0.5 inch (~1 cm) per dose. 1954 (Given - Provid er: Sierra Brewer RN) (unrecognized sect ion and content) No Status Records FoundNo Status Records FoundNo Status Records FoundNo Status Records FoundNo Status Records FoundNo Status Records Found INFORMATION SOURCE (unrecogn ized section and content) DATE CREATED AUTHOR 12/01/2021 [facility] DATE CREATED AUTHOR AUTHOR'S ORGANIZ ATION 12/07/2021 [facility] DATE CREATED AUTHOR AUTHOR'S ORGANIZ ATION 09/28/2022 [facility] ([place] DATE CREATED AUTHOR AUTHOR'S ORGANIZ ATION 11/26/2023 [facility] DATE CREATED AUTHOR AUTHOR'S ORGANIZ ATION 04/27/2024 [facility] DATE CREATED AUTHOR AUTHOR'S ORGANIZ ATION 07/23/2024 [facility] [place] Ordered Prescriptions (unrec ognized section and content) Prescription Sig Dispensed Refills Start Date End Da te nicotine (NICODERM CQ) 21 MG/24HR Place 1 patch onto the skin daily 30 patch 3 12/05/2021 Goals (unrecognized section and content) Goals may be documented in a n alternate sectionGoals may be documented in an alternate sectionGoals may be documented in an alternate sectionGoals may be documented in an alternate section No data available for this sectionGoals may be documented in an alternate section No data available for this sectionGoals may be documented in an alternate section FOR RECORDS PERTAINING TO PATIENTS WHO ARE OR HAVE BEEN ENROLLED IN A CHEMICAL DEPENDENCY/SUBSTANCEABUSE PROGRAM, SOME INFORMATION MAY BE OMITTED. This clinical summary was aggregated from multiple sources. Caution should be exercised in using it in the provision of clinical care. This summary normalizes information from multiple sources, and as a consequence, information in this document may materially change the coding, format and clinical context of patient data. In addition, data may be omitted in some cases. CLINICAL DECISIONS SHOULD BE BASED ON THE PRIMARY CLINICAL RECORDS. [employer] provides no warranty or guarantee of the accuracy or completeness of information in this document.
[2024-08-02 09:30] LABS: Anion Gap 11 (5-15); BUN 15 mg/dL (4-19); BUN/Creat Ratio 15.9 RATIO (10-20); Calcium,Total 10.3 mg/dL (7.6-11.0); Chloride 104 mmol/L (98-108); Creatinine, Serum 0.94 mg/dL (0.70-1.20); EST Glomerular Filtration Rate 92 (>60); Estimated Creatinine Clearance 105.56 ml/min (50-250); Glucose 105 mg/dL (70-99); Potassium 4.1 mmol/L (3.3-5.1); Sodium Level 138 mmol/L (133-145)
[2024-08-02] MEDS: Gentamicin Sulfate 1 OPTH.BTL 2 DRP RIGHT EYE (09:40)
[2024-08-02 10:26] VITALS: BP 125/83; PULSE 66; RESP 15; TEMP 36.6; O2SAT 97
== END 2024-08-02 10:26 | disposition home or self-care (01) ==
PROVIDERS: Emergency Provider Emergency Medicine; PCP Family Medicine; Visit Provider Emergency Medicine
DX: R10.9 Unspecified abdominal pain (principal); E78.00 Pure hypercholesterolemia, unspecified; H10.9 Unspecified conjunctivitis; Z79.899 Other long term (current) drug therapy; Z79.890 Hormone replacement therapy; E03.8 Other specified hypothyroidism; Z90.49 Acquired absence of other specified parts of digestive tract; F17.290 Nicotine dependence, other tobacco product, uncomplicated
CPT/HCPCS: 74176; 80048; 81001; 85025; 96374; 99285; A4216

== ENCOUNTER 2024-10-03 10:33 | Emergency (ER) | payer OTHER, SELFPAY ==
[2024-10-03 10:33] VITALS: BP 141/79; PULSE 44; RESP 18; TEMP 36.4; O2SAT 98; BMI 30.1
--- NOTE | 2024-10-03 11:06 | EDS_ITS ---
HPI History of Present Illness Chief Complaint: Flank Pain Narrative Narrative: Patient is a 64-year-old male presenting to the emergency department for right- sided flank pain that started a few days ago. Patient has a past medical history as below. States that he has had infections of his kidney previously. Does not think he has had any history of kidney stones. States that he also has a history of back pain. Cannot think of any injuries that specifically caused this pain. He has been taking Motrin at home for pain relief. States that the pain comes and goes but worsens when he moves around. Denies any fever, chills, nausea, vomiting, chest pain, shortness of breath, diarrhea, dysuria or hematuria. Denies any IV drug use, bowel or bladder incontinence or retention, saddle anesthesia, numbness or weakness in his legs. 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 Hypogonadism 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 Sebaceous cyst of scrotum Kidney pain Liver disease Hearing problem Back problem Wears hearing aid Loss of hearing MRSA infection Marijuana use History of renal disease High cholesterol DVT (deep venous thrombosis) History of diverticulitis Smoker History of edema Ileofemoral deep vein thrombosis (~11/2022) Small bowel diverticular disease Home Medications ?Medication ?Instructions ?Recorded ?Last Taken ?Type rosuvastatin 10 mg tablet (Crestor) 10 mg PO DAILY 08/1702/11/23 History aspirin 81 mg tablet,delayed 81 mg PO BREAKFAST #30 ta bs 02/13/23 Unknown Rx release blood pressure monitor #1 ea 03/21/23 Unknown Rx triamcinolone acetonide 0.1 % 1 applic topical BID #80 grams 07/12/23 Unknown Rx topical cream tadalafil 5 mg tablet 5 mg PO DAILY #90 tabs 06/02 Unknown Rx cabergoline 0.5 mg tablet 1 mg (2 x 0.5 mg) PO 2XW #48 tabs 07/17/24 Unknown Rx fenofibrate 160 mg tablet 160 mg PO DAILY #90 tabs Unknown Rx levothyroxine 100 mcg tablet 100 mcg PO DAILY #90 tabs 07/17/24 Unknown Rx testosterone 2 pump topical QDAY #150 gra ms 07/17/24 Unknown Rx amoxicillin 500 mg tablet 500 mg PO TID #21 tabs 08/11 Unknown Rx tamsulosin 0.4 mg capsule 0.4 mg PO DAILY #90 caps 10/19 Unknown Rx rivaroxaban 20 mg tablet (Xarelto) 20 mg PO QPM #90 TA BLETS 09/23/24 Unknown Rx cyclobenzaprine 10 mg tablet 10 mg PO TID PRN Muscle S pasm #20 10/03/24 Unknown Rx TABLETS lidocaine 5 % topical patch 1 patch topical DAILY #15 ea 10/03/24 Unknown Rx (Lidoderm) Allergy/AdvReac Type Severity Reaction Status Date / Time meperidine (From Demerol) AdvReac Intermediate Nausea/Vom/ Verified 10/03/24 10:36 Diarrhea Surgical History History of colon resection Hx of tonsillectomy H/O knee surgery Hx of colonoscopy Hx of cholecystectomy Social History Smoking Status: Current every day smoker tobacco type: cigarettes Tobacco: How many years used: 30 how long ago did patient quit smokin-6months ago alcohol intake: current substance use type: does not use what type of physical activity do you participate in: none ROS ROS ED ROS Narrative See HPI EXAM Physical Exam Narrative Exam Narrative: Vital signs: Reviewed General: Alert and oriented. No acute distress HEENT: Head is normocephalic and atraumatic, sinuses nontender, pupils equal round and reactive. Nares are patent. Oropharynx and throat exams normal. Neck: Supple without lymphadenopathy nontender Cardiovascular: Regular rate and rhythm, no murmurs. No rubs or gallops. Normal S1 and S2 Respiratory: Clear to auscultation bilaterally. No wheezes, rales, rhonchi Abdominal: Soft, mildly tender to palpation in the right lower quadrant. Normal bowel sounds. No guarding or rebound. Nonsurgical abdomen Extremities: No tenderness. No bruising. Normal range of motion. Normal sensation. No midline cervical, thoracic or lumbar spinal tenderness to palpation. There is some mild right CVA tenderness to palpation. There is bilateral paraspinal lower thoracic upper lumbar spinal tenderness to palpation. There is no erythema. Skin: No rash or redness. Neurological: Cranial nerves II through XII are grossly intact. Normal strength and sensation. Normal cerebellar function The rest of the physical exam is unremarkable Const Vital Signs: 10/03/24 10:33 10/03/24 12:33 Temperature 97.6 F L Temperature Source Oral Pulse Rate 44 L 70 Respiratory Rate 18 Blood Pressure 141/79 H 151/73 H Blood Pressure Mean 99 99 Pulse Ox 98 Oxygen Delivery Method Room Air MDM MDM MDM Narrative Medical decision making narrative: Patient is a 64-year-old male presenting to the emergency department for right- sided flank pain. Patient was seen and examined. Vitals are stable. Patient resting in bed comfortably no acute distress. Differential includes but is not limited to: Nephrolithiasis, MSK, pyelonephritis, UTI. Patient given analgesia. No indication for imaging of the spine given no midline tenderness on exam. No neurodeficits. CBC with no leukocytosis and hemoglobin of 17.9. BMP with normal kidney function. Urinalysis with no evidence of UTI, no RBCs or blood. Patient was updated on the lab work. CT was completed however patient did not want to wait on the results. I informed him that I do not see any evidence of kidney stone and this is likely MSK in nature. I was completing a procedure at the time he told nursing staff that he wanted to leave. I was not able to have discussion about return precautions and follow up with him. He eloped before I was able to reevaluate. CT came back after and shows no acute abdominopelvic abnormalities. Liver steatosis and hepatomegaly. Given negative workup, again suspect MSK in nature. I did send prescriptions to his pharmacy. Lab Data Attestation: I reviewed the patient's lab results. Labs: Laboratory Results - last 24 hr 10/03/24 10/03/24 11:01 11:03 WBC 7.8 RBC 5.76 Hgb 17.9 H Hct 52.0 MCV 90.3 MCH 31.1 MCHC 34.4 RDW Std Deviation 49.4 H RDW Coeff of Mookie 14.9 H Plt Count 226 MPV 9.6 Immature Gran % (Auto) 0.600 Neut % (Auto) 56.9 Lymph % (Auto) 32.4 [place] % (Auto) 6.9 Eos % (Auto) 2.3 Baso % (Auto) 0.9 Absolute Neuts (auto) 4.4 Absolute Lymphs (auto) 2.53 Nucleated RBC % 0 Sodium 136 Potassium 4.5 Chloride 104 Carbon Dioxide 21.5 Anion Gap 10 BUN 15 Creatinine 1.02 Estim Creat Clear Calc 96.38 Est GFR (MDRD) Non-Af 83 BUN/Creatinine Ratio 14.9 Glucose 97 Calcium 10.8 Total Bilirubin 0.40 AST 29 ALT 28 Alkaline Phosphatase 80 Total Protein 7.5 Albumin 4.4 Globulin 3.1 Albumin/Globulin Ratio 1.5 Lipase 27 Urine Color Yellow Urine Clarity Clear Urine pH 6.0 Ur Specific [place] 1.020 Urine Protein Negative Urine Glucose (UA) Normal Urine Ketones Negative Urine Occult Blood Negative Urine Nitrite Negative Urine Bilirubin Negative Urine Urobilinogen Normal Ur Leukocyte Esterase Negative Urine RBC 0 SEEN Urine WBC 0 SEEN Ur Squamous Epith Cells 5-10 SEEN Urine Bacteria 0 SEEN Urine Mucus 0 SEEN Radiography Diagnostic Testing: Clinical Impression(s) from Imaging Studies Abdomen/Pelvis CT 10/03/24 12:15 IMPRESSION: No acute abdominopelvic abnormalities. Liver steatosis and hepatomegaly. Reading Location: [facility] Discharge Plan Triage Chief Complaint: Flank Pain Other Complaint: Back ED Provider: Ludy Luque Dx/Rx/DC Orders Clinical Impression: Musculoskeletal back pain Instructions: ED Back Pain (Acute or Chronic) Prescriptions: New cyclobenzaprine 10 mg tablet 10 mg PO TID PRN (Reason: Muscle Spasm) Qty: 20 0RF lidocaine [Lidoderm] 5 % adhesive patch,medicated 1 patch topical DAILY Qty: 15 0RF Rx Instructions: leave on most painful area for up to 12 hrs No Action rosuvastatin [Crestor] 10 mg tablet 10 mg PO DAILY (DME) blood pressure monitor Kit See Rx Instructions .ROUTE .MEDSUPPLY Qty: 1 0RF Rx Instructions: As directed triamcinolone acetonide 0.1 % cream 1 applic topical BID Qty: 80 0RF fenofibrate 160 mg tablet 160 mg PO DAILY Qty: 90 1RF levothyroxine 100 mcg tablet 100 mcg PO DAILY Qty: 90 3RF testosterone 20.25 mg/1.25 gram (1.62 %) gel in metered-dose pump 2 pump topical QDAY Qty: 150 5RF Rx Instructions: apply 1 pump amount over max area of EACH upper arm and shoulder cabergoline 0.5 mg tablet 1 mg PO 2XW Qty: 48 1RF Rx Instructions: take 2 tab by mouth on es and Sat amoxicillin 500 mg tablet 500 mg PO TID Qty: 21 0RF aspirin 81 mg Tablet,Delayed Release (Dr/Ec) 81 mg PO BREAKFAST Qty: 30 0RF tadalafil 5 mg tablet 5 mg PO DAILY Qty: 90 1RF tamsulosin 0.4 mg capsule 0.4 mg PO DAILY Qty: 90 0RF Xarelto 20 mg tablet 20 mg PO QPM Qty: 90 3RF Primary Care Provider: Justice Bailey Referrals: Justice Bailey, DO [Primary Care Provider] - 3-5 Days Activity Restrictions/Additional Instructions: Your evaluation in the Emergency Department did not reveal any acute reason for admission. However, I want to emphasize that you may be early in the course of a disease process or illness even if it is not present. For this reason you should follow-up within 24 hours for reevaluation with either your primary care physician or if necessary back here in the Emergency Department. You should return to the Emergency Department immediately if your symptoms worsen or new symptoms develop. Take the Flexeril 1 tablet every 8 hours as needed for muscle spasms. Please take Tylenol at home scheduled throughout the day to help with pain. Apply the lidocaine patch to your right lower back and leave on for 12 hours. Return to the ED with any new or worsening symptoms. Please follow-up with your primary care doctor soon as possible. Print Language: Sammarinese Disposition Disposition: Home, Self Care Discharge Date/Time: 10/03/24 16:05
[2024-10-03 11:11] LABS: Mucous, Urine 0 SEEN /hpf (<or=2+); Red Blood Cells-Urine 0 SEEN /hpf (0-5)
[2024-10-03 11:32] LABS: Hematocrit 52.0 % (40-54); Hemoglobin 17.9 g/dL (13.0-16.5); Immature Granulocytes Count 0.050 X10^3/uL (0.0-0.0); Mean Corp Hgb Conc 34.4 g/dL (32-36); Mean Corpuscular Volume 90.3 fL (80-94); Mean Platelet Vol. 9.6 fl (6.2-12.0); NRBC Flagged by Analyzer 0 % (0-5); Platelet Count 226 K/mm3 (150-450); RBC Distribution Width CV 14.9 % (11.6-14.6); RBC Distribution Width SD 49.4 fl (35.1-43.9); Red Blood Count 5.76 M/mm3 (4.6-6.2); White Blood Count 7.8 K/mm3 (4.4-11.0)
[2024-10-03 11:32] LABS: Color, Urine Yellow (Yellow); Glucose, Dipstick Normal (Normal); Ketone-Dipstick Negative (Negative); Leukocyte Esterase-Dipstick Negative /ul (Negative); Nitrite-Dipstick Negative (Negative); Occult Blood-Urine Negative /ul (Negative); Protein-Dipstick Negative (Negative); Specific Gravity, Urine 1.020 (1.002-1.030); Urine Bilirubin Dipstick Negative (Negative)
[2024-10-03 11:43] LABS: Squamous Epithelial Cells - UA 5-10 SEEN /hpf (0-5)
--- OUTSIDE RECORDS SUMMARY | 2024-10-03 11:53 | XMS RPT_ITS | CCD ---
Author Organization [facility] CliniSyal Care Team Providers Care Machine Cutter Name Role Phone Leanne Perales Primary Care Provider Leanne Perales Primary Care Unavailable PROVIDER, UNKNOWN Referring Unavailable Tayler Rivas Attending Unavailable Lenane Perales MD Primary Care Provider Leanne Perales Primary Care Unavailable PROVIDER, UNKNOWN Referring Unavailable ROCIO NIEVES Attending Unavailable Leanne Perales Primary Care Unavailable PROVIDER, UNKNOWN Referring Unavailable Jean Marie Benito Attending Unavailable PROVIDER, UNKNOWN Referring Unavailable Temi Lynne Attending Unavailable Leanne Perales Primary Care Unavailable PROVIDER, UNKNOWN Referring Unavailable Tc Spence Attending Unavailable Leanne Perales Primary Care Unavailable Leanne Perales MD Primary Care Provider Leanne Perales MD Primary Care Provider PHYSICIAN, NONE Attending Unavailable PHYSICIAN, NONE Primary Care Unavailable Leanne Perales MD Primary Care Provider Cheryl Basilio MD Primary Care Provider Ziggy Arauz MD Unavailable Dr. Ryan Ceja Attending Provider Dr. Ryan Ceja Admit Provider Dr. Ryan Ceja Referring Provider [phone] Ryan Ceja Other Provider CHERYL BASILIO Primary Care Provider Dr. Fabio Day Other Provider EDMUND Clarke Attending Provider Dr. Ryan Ceja Referring Provider [phone] Janette King Attending Provider RUBI Hale Attending Provider Kj SANDERSON, Cheryl Hernandez Primary Care Provider Cheryl Basilio MD Primary Care Provider Dr. Ryan Ceja Attending Provider [phone] Silvestre Sexton Primary Care Provider [phone] CHERYL BASILIO Primary Care Unavailable SILVESTRE SEXTON Primary Care Unavailable ROCIO CALIX Attending Unavailable CHERYL BASILIO Attending Unavailable CHERYL BASILIO Primary Care Unavailable ZIGGY ARAUZ Attending Unavailable CHERYL BASILIO Primary Care Unavailable PACHECO ORTIZ Attending Unavailab le CHERYL BASILIO Primary Care Unavailable CHERYL BASILIO Primary Care Unavailable ZIGGY ARAUZ Admitting Unavailable ZIGGY ARAUZ Attending Unavailable JOURILES, PACHECO J Attending Unavailable KJ, CHERYL Primary Care Unavailable YOLANDA PATEL Attending Unavailable KJ, CHERYL Primary Care Unavailable KJ, CHEYRL Primary Care Unavailable DAVONTE, ZIGGY Attending Unavailable VEJOSUE RUIZ, ROCIO Attending Unavailable KJ, CHERYL Primary Care Unavailable KJ, CHERYL Attending Unavailable KJ, CHERYL Referring Unavailable KJ, CHERYL Primary Care Unavailable VEERAVANALLUR APPUSWAMY, ROCIO Referring Unavailable SILVESTRE SEXTON Primary Care Unavailable VEERADANIE LOWEUSDEBORAHMY, ROCIO Attending Unavailable KJ, CHERYL Attending Unavailable KJ, CHERYL Referring Unavailable KJ, CHERYL Primary Care Unavailable KJ, CHERYL Primary Care Unavailable DAVONTE, ZIGGY Attending Unavailable DAVONTE, ZIGGY Referring Unavailable VEJOSUE RUIZ, ROCIO Attending Unavailable ELLEN RUIZ, ROCIO Referring Unavailable KJ, CHERYL Primary Care Unavailable DAVONTE, ZIGGY Attending Unavailable KJ, CHERYL Primary Care Unavailable ALEXIA BAEZA-BHAVNA, SANJANA M Primary Care Physician BASIM RAMSEY MD Attending Unavaila laurent HALE APRN-FARM EQUIPMENT SERVICE TECHNICIAN, SANJANA M Primary Care Lizz HALE APRN-FARM EQUIPMENT SERVICE TECHNICIAN, SANJANA M Primary Care BASIM Thibodeaux MD Attending Unavaila laurent Hale UNIX SYSTEMS ADMINISTRATOR-C, Sanjana Primary Care Provider Alexia UNIX SYSTEMS ADMINISTRATOR-C, Sanjana Referring Provider [phone] David Piña Attending Provider Dolly Stewart Attending Provider [phone] Justice Bailey DO Primary Care Provider [phone] Dr. Justice Bailey DO Attending Provider [phone] Dolly Stewart Referring Provider [phone] Ryan Ceja MD Attending Provider Yolanda Yates Attending Provider Dr. Justice Bailey DO Referring Provider Stanislaw Thomas Attending Provider Dolly Stewart Attending Provider Leo LOAIZA, Dr. Justice Issa Primary Care Provider Estefany Gonzalez MA Attending Provider Unavailable King MARIA E, Dr. Wilkins Attending Provider [phone] Ross LOAIZA, Dr. Ojeda Emergency Provider Ross DO, Dr. Ojeda Attending Provider [phone] Leo DO, Dr. Justice Issa Attending Provider Yolanda Yates Attending Unavailable Brown, Justice R Primary Care Unavailable Brown, Justice R Primary Care Unavailable Estefany Gonzalez Attending Unava ilable Dolly Clarke Attending Unavailable Dolly Clarke Referring Unavailable Brown, Justice R Primary Care Unavailable Brown, Justice R Primary Care Unavailable Stanislaw Alejandra Attending Unavailable Brown, Justice R Primary Care Unavailable Rusty Hawkins Attending Unavailable David Piña Attending Unavailable Ferullo, Sanjana Referring Unavailable Ferullo, Sanjana Primary Care Unavailable Dolly Clarke Attending Unavailable Ferullo, Sanjana Referring Unavailable Ferullo, Sanjana Primary Care Unavailable Brown, Justice R Primary Care Unavailable Ferullo, Sanjana Referring Unavailable Brown, Justice R Attending Unavailable Ferullo, Sanjana Referring Unavailable Ferullo, Sanjana Primary Care Unavailable Ferullo, Sanjana Attending Unavailable Brown, Justice R Referring Unavailable Brown, Justice R Primary Care Unavailable Stanislaw Alejandra Attending Unavailable Brown, Justice R Primary Care Unavailable Franky Brewer Attending Unavailable Brown, Justice R Referring Unavailable Brown, Justice R Primary Care Unavailable Brown, Justice R Attending Unavailable Brown, Justice R Referring Unavailable Ferullo, Sanjana Referring Unavailable Ferullo, Sanjana Primary Care Unavailable Ferullo, Sanjana Attending Unavailable Ferullo, Sanjana Referring Unavailable Ferullo, Sanjana Primary Care Unavailable Brown, Justice R Attending Unavailable Ferullo, Sanjana Referring Unavailable Ferullo, Sanjana Primary Care Unavailable Brown, Justice R Attending Unavailable Clarke, Dolly Referring Unavailable Brown, Justice R Primary Care Unavailable Ryan Ceja Attending Unavailable Allergies Allergy Classification Reported Allergen(s) Allergy Type Date of Onset Reaction(s) Facility Opioid Agonists (1 source) Meperidine Drug Allergy 5 Nausea And Vomiting [facility] (20 sources) Meperidine; Translations: [meperidine] Drug Allergy 5 Nausea And Vomiting, Vomiting (disorder) [facility] [place] [place] (1 source) Meperidine Drug Allergy [facility] Repository Medications Current Medications Medication Drug Class(es) Dates Sig (Normalized) Sig (Original) amoxicillin 500 mg oral tablet (4 sources) Penicillin-class Antibacterial Start: 08-11-2024 take 1 tablet by mouth three times daily Amoxicillin 500 mg tablet Active 500 mg PO THREE TIMES A DAY August 11, 2024 12:00am Start: 10-10-2023 End: 12-23-2023 take 1 capsule by mouth three times daily Amoxicillin 500 mg capsule Discontinued 500 mg PO THREE TIMES A DAY October 10, 2023 12:00am December 23, 2023 9:53am aspirin 81 mg delayed release oral tablet (20 sources) Platelet Aggregation Inhibitor, Nonsteroidal Anti-inflammatory Drug Start: 02-13-2023 take 1 tablet by mouth at breakfast Aspirin 81 mg Tablet,Delayed Release (Dr/Ec) Active 81 mg PO WITH BREAKFAST February 13, 2023 1:00am Start: 12-01-2021 End: 06-19-2022 take 81 mg [...] 12:56pm As directed Blood Pressure Monitor kit (6 sources) Start: 03-21-2023 Blood Pressure Monitor kit Active 0 .ROUTE .MEDSUPPLY March 21, 2023 1:56pm As directed Start: 03-21-2023 End: 03-21-2023 Blood Pressure Monitor kit D iscontinued 0 .ROUTE .MEDSUPPLY March 21, 2023 1:00am March 21, 2023 1:56pm As directed cabergoline 0.5 mg oral tablet (20 sources) Ergot Derivative Start: 07-17-2024 take 2 tablets by mouth two times weekly Cabergoline 0.5 mg tablet Active 1 mg PO TWICE A WEEK July 17, 2024 9:10am take 2 tab by mouth on and Sat Start: 10-13-2022 take 0.75 mg by mouth once 0.7 5 mg, Oral, Once, On 10/13/22 at 0900, For 1 dose Verified by pharmacy, 10-13-22, Adolfo Hutton [facility] Start: 08-22-2022 End: 07-17-2024 take 1 tablet by mouth two times weekly Cabergoline 0.5 mg tablet Discontinued 0.5 mg PO TWICE A WEEK November 06, 2023 12:21pm July 17, 2024 8:57am take 1 1/2 tab by mouth on and Sat Start: 04-04-2022 End: 08-22-2022 cabergoline (Dostinex) 0.5 M G tablet Take 1.5 tabs on Saturday and saturday 36 tablet 1 04/04/2022 08/22/2022 Discontinued Start: 12-02-2021 take 0.75 mg by mout h once daily 0.75 mg, Oral, USER SPECIFIED (Once per day on Sat), First dose on 12/02/21 at 0900, Until Discontinued Non-formulary medication. Physically verified by pharmacy on 12/02/21 - [facility]. Hazardous Medication -- Refer to facility policy for handling and disposal. Start: 02-13-2021 cabergoline (D ostinex) 0.5 MG tablet Take 1.5 tabs on Saturday and saturday 0 02/13/2021 Active Start: 06-09-2018 cabergoline (D OSTINEX) 0.5 MG tablet Indications: Prolactin secreting pituitary adenoma (HCC) ONE AND HALF TABLETS ON TUESDAYS AND ONE AND HALF TABLET ON SATURDAYS 36 tablet 2 11/10/2018 Active cephalexin 500 mg oral capsule (1 source) Cephalosporin Antibacterial Start: 09-14-2022 End: 09-24-2022 cephalexin (Keflex) 500 MG capsule Take 1 capsule (500 mg) by mouth in the morning and 1 capsule (500 mg) at noon and 1 capsule (500 mg) in the evening and 1 capsule (500 mg) before bedtime. Do all this for 10 days. 40 capsule 0 09/14/2022 09/24/2022 Active diclofenac sodium 75 mg delayed release oral tablet (1 source) Nonsteroidal Anti-inflammatory Drug Start: 08-03-2018 take 1 tablet by mouth twice daily diclofenac (VOLTAREN) 75 MG EC tablet Take 1 tablet by mouth 2 times daily 60 tablet 0 08/03/2018 Active docusate sodium 50 mg / sennosides, chcf 8.6 mg oral tablet (4 sources) Start: 10-16-2022 End: 10-16-2023 take 2 tablets by mouth twice daily senna-docusate sodium (Senokot-S) 8.6-50 MG tablet Take 2 tablets by mouth 2 times daily. 120 tablet 11 10/16/2022 10/16/2023 Active Start: 10-14-2022 End: 10-16-2022 senna-docusate sodium (Senok ot-S) 8.6-50 MG tablet 2 tablet ertapenem (INVanz) 1,000 mg in sodium chloride 0.9 % 50 mL IVPB (1 source) Start: 12-03-2021 End: 12-08-2021 ertapenem (INVanz) 1,000 mg in sodium chloride 0.9 % 50 mL IVPB 2 ml gentamicin 40 mg/ml injection (2 sources) Start: 11-28-2021 gentamicin (GA RAMYCIN) injection 544.4 mg Start: 11-27-2021 End: 11-27-2021 gentamicin (GARAMYCIN) 40 MG /ML injection Indications: Recurrent UTI Inject 13.61 mLs into the muscle once for 1 dose 13.61 mL 0 11/27/2021 11/27/2021 Discontinued (LIST CLEANUP) melatonin 10 mg oral capsule (1 source) Start: 12-02-2021 melatonin caps ule 10 mg niacin 1000 mg oral tablet (20 sources) Nicotinic Acid Start: 12-24-2023 take 1 tablet by mouth once daily niacin 1000 mg oral tablet, extended release take 1 tablet by mouth daily Start Date: 12/24/23 Status: Ordered Repeat number: 1 Start: 01-30-2023 End: 07-17-2024 take 1 tablet by mouth at bedtime Niacin 1,000 mg tablet extended release Discontinued 1000 mg PO AT BEDTIME January 30, 2023 1:00am July 17, 2024 8:54am Start: 05-07-2022 End: 10-31-2022 take 1 tablet by mouth once daily niacin (Niaspan) 1000 MG ER tablet Take 1 tablet (1,000 mg) by mouth daily. 90 tablet 1 10/31/2022 Active Start: 10-26-2021 take 1 tablet by celestino th once daily niacin ER 1000 MG ER tablet 1000 mg p.o. daily 0 10/26/2021 Active Start: 03-28-2021 take 1 tablet by celestino th once daily in the evening niacin (NIASPAN) 1000 MG extended release tablet TAKE 1 TABLET BY MOUTH EVERY DAY IN THE EVENING 90 tablet 1 03/28/2021 Active Start: 07-14-2018 take 1 tablet by celestino th once daily in the evening niacin (NIASPAN) 1000 MG extended release tablet TAKE 1 TABLET BY MOUTH EVERY DAY IN THE EVENING 90 tablet 1 07/14/2018 Active 24 hr nicotine 0.875 mg/hr transdermal system (2 sources) Cholinergic Nicotinic Agonist Start: 12-05-2021 apply 1 dose transdermal route once daily nicotine (NICODERM CQ) 21 MG/24HR Place 1 patch onto the skin daily 30 patch 3 12/05/2021 Active Start: 12-02-2021 nicotine (AVIS DERM CQ) 21 MG/24HR 1 patch nitrofurantoin, macrocrystals 25 mg / nitrofurantoin, monohydrate 75 mg oral capsule (4 sources) Nitrofuran Antibacterial Start: 09-16-2022 End: 09-23-2022 take 1 capsule by mouth twice daily nitrofurantoin, macrocrystal-monohydrate, (Macrobid) 100 MG capsule Indications: Acute cystitis without hematuria Take 1 capsule (100 mg) by mouth 2 times daily for 7 days. 14 capsule 0 09/16/2022 09/23/2022 Active Start: 11-27-2021 End: 12-05-2021 take 1 capsule by mouth twice daily nitrofurantoin, macrocrystal-monohydrate , (MACROBID) 100 MG capsule Take 1 capsule by mouth 2 times daily for 7 days 14 capsule 0 11/27/2021 12/05/2021 Discontinued (Stop Taking at Discharge) Start: 08-07-2018 nitrofurantoin , macrocrystal-monohydrate, (MACROBID) 100 MG capsule polyethylene glycol 3350 11439 mg powder for oral solution (6 sources) Osmotic Laxative Start: 10-16-2022 End: 10-20-2022 polyethylene glycol, PEG, 3350 (Glycolax) 17 GM/SCOOP powder Take 17 g by mouth 2 times daily for 3 days. 119 g 0 10/16/2022 10/20/2022 Active Start: 10-13-2022 End: 10-16-2022 polyethylene glycol (PEG) 33 50 (Miralax) packet 17 g rosuvastatin calcium 10 mg oral tablet (20 sources) HMG-CoA Reductase Inhibitor Start: 01-30-2023 take 1 tablet by mouth once daily Rosuvastatin (Crestor) 10 mg tablet Active 10 mg PO DAILY January 30, 2023 1:00am Start: 05-07-2022 End: 10-31-2022 take 1 tablet by mouth once daily rosuvastatin (Crestor) 10 MG tablet Take 1 tablet (10 mg) by mouth daily. 90 tablet 1 10/31/2022 Active Start: 10-16-2021 take 1 tablet by celestino th in the morning rosuvastatin (Crestor) 10 MG tablet Take 1 tablet by mouth in the morning. 0 10/16/2021 Active Start: 09-08-2018 take 1 tablet by celestino th once daily rosuvastatin (CRESTOR) 10 MG tablet Take 1 tablet by mouth daily 90 tablet 1 09/08/2018 Active Triamcinolone (3 sources) Corticosteroid Start: 07-12-2023 Triamcinolone Acetonide 0.1 % cream Active 1 NMA TOPICAL TWICE A DAY 80 July 12, 2023 12:00am Completed/Discontinued Medications Medication Drug Class(es) Dates Sig (Normalized) Sig (Original) acetaminophen 500 mg oral tablet (4 sources) Start: 12-25-2022 End: 12-25-2022 acetaminophen (Tylenol) tablet 1,000 mg Start: 10-13-2022 End: 10-16-2022 take 1 tablet by mouth every six hours as needed for pain and fever acetaminophen (Tylenol) tablet 650 mg Start: 12-01-2021 acetaminophen (TYLENOL) tablet 650 mg acetaminophen 325 mg / oxyCODONE hydrochloride 5 mg oral tablet (12 sources) Opioid Agonist Start: 10-12-2022 End: 10-12-2022 oxyCODONE-acetaminophen (Percocet) 5-325 MG per tablet 1 tablet Start: 10-12-2022 End: 10-12-2022 oxyCODONE-acetaminophen (Per cocet) 5-325 MG per tablet 1 tablet Start: 10-12-2022 End: 10-17-2022 take 1 tablet by mouth every six hours as needed for pain 1 tablet, Oral, Every 6 hours PRN, sever e pain (7-10), Starting on Sat10/12/22 at 2254 Maximum dose of acetaminophen is 4000 mg from all sources in 24 hours. ALPRAZolam 0.25 mg disintegrating oral tablet (1 source) Benzodiazepine Start: 12-25-2022 End: 12-25-2022 ALPRAZolam (Xanax) disintegrating tablet 0.25 mg amoxicillin 875 mg / clavulanate 125 mg oral tablet (20 sources) Penicillin-class Antibacterial Start: 05-12-2023 End: 09-20-2023 Amoxicillin-Pot Clavulanate 875-125 mg tablet Discontinued 1 {tbl} PO Q12H May 28, 2023 11:03am September 20, 2023 8:57am Start: 05-12-2023 End: 05-28-2023 take 1 tablet by mouth every twelve hours Amoxicillin-Pot Clavulanate Active 1 TABLET PO Q12H May 28, 2023 11:03am Start: 08-20-2022 End: 08-27-2022 take 1 tablet by mouth twice daily amoxicillin-clavulanate (Augmentin) 875-125 MG tablet Take 1 tablet by mouth 2 times daily for 7 days. 14 tablet 0 08/20/2022 08/27/2022 Active Start: 02-23-2022 End: 03-05-2022 take 1 tablet by mouth twice daily amoxicillin-clavulanate (Augmentin) 875-125 MG tablet Indications: Acute cystitis without hematuria Take 1 tablet by mouth 2 times daily for 4 days. Start after completing current prescription. 8 tablet 0 02/27/2022 03/03/2022 Active azithromycin 250 mg oral tablet (3 sources) Macrolide Antimicrobial Start: 02-25-2024 End: 03-18-2024 Azithromycin 250 mg tablet Discontinued 0 PO .COMPLEX 6 February 25, 2024 1:00am March 18, 2024 2:17pm For 250 mg dose pack: take 500 mg today (day 1), then 250 mg for 4 days (days 2-5) PO baclofen 10 mg oral tablet (13 sources) gamma-Aminobutyric Acid-ergic Agonist Start: 03-06-2022 End: 06-19-2022 take 1 tablet by mouth three times daily baclofen (Lioresal) 10 MG tablet Take 1 tablet (10 mg) by mouth 3 times daily. 30 tablet 0 03/06/2022 06/19/2022 Discontinued (Med list cleanup) bisacodyl 10 mg rectal suppository (4 sources) Stimulant Laxative Start: 10-15-2022 End: 10-15-2022 bisacodyl (Dulcolax) suppository 10 mg Start: 10-14-2022 End: 10-14-2022 bisacodyl (Dulcolax) supposi tory 10 mg calcium chloride 0.0014 meq/ml / potassium chloride 0.004 meq/ml / sodium chloride 0.103 meq/ml / sodium lactate 0.028 meq/ml injectable solution (1 source) Start: 12-25-2022 End: 12-25-2022 lactated ringers infusion cefTRIAXone (Rocephin) 1,000 mg in sodium chloride 0.9 % 50 mL IVPB Mini-Bag Plus (2 sources) Start: 12-22-2022 End: 12-22-2022 cefTRIAXone (Rocephin) 1,000 mg in sodium chloride 0.9 % 50 mL IVPB Mini-Bag Plus ciprofloxacin 500 mg oral tablet (11 sources) Quinolone Antimicrobial Start: 12-21-2022 End: 01-02-2023 take 1 tablet by mouth twice daily ciprofloxacin (Cipro) 500 MG tablet Indications: Right flank pain Take 1 tablet (500 mg) by mouth 2 times daily for 7 days. 14 tablet 0 12/21/2022 01/02/2023 Discontinued (Therapy completed) clopidogrel 75 mg oral tablet (11 sources) P2Y12 Platelet Inhibitor Start: 02-13-2023 End: 05-28-2023 take 1 tablet by mouth once daily Clopidogrel 75 mg Tablet Discontinued 75 mg PO DAILY February 13, 2023 1:00am May 28, 2023 10:04am cyclobenzaprine hydrochloride 10 mg oral tablet (10 sources) Muscle Relaxant Start: 10-14-2023 End: 07-17-2024 take 1 tablet by mouth twice daily as needed for muscle spasms Cyclobenzaprine 10 mg tablet Discontinued 10 mg PO TWICE A DAY as needed for muscle spasm October 14, 2023 12:00am July 17, 2024 8:20am Start: 06-06-2023 End: 09-20-2023 take 1 tablet by mouth at bedtime as needed for muscle spasms Cyclobenzaprine 10 mg tablet Discontinued 10 mg PO BEDTIME as needed for muscle spasm June 06, 2023 12:00am September 20, 2023 8:57am 1 ml diphenhydrAMINE hydrochloride 50 mg/ml cartridge (1 source) Histamine-1 Receptor Antagonist Start: 12-25-2022 End: 12-25-2022 diphenhydrAMINE (BENADryl) injection 12.5 mg 0.8 ml enoxaparin sodium 150 mg/ml prefilled syringe (5 sources) Low Molecular Weight Heparin Start: 10-13-2022 End: 10-16-2022 enoxaparin (Lovenox) syringe 105 mg Start: 10-12-2022 End: 10-12-2022 enoxaparin (Lovenox) syringe 160 mg Start: 12-01-2021 End: 12-04-2021 enoxaparin Sodium (LOVENOX) injection 30 mg erythromycin 0.005 mg/mg ophthalmic ointment (10 sources) Macrolide, Macrolide Antimicrobial Start: 12-23-2023 End: 12-28-2023 Erythromycin 5 mg/gram (0.5 %) ointment Discontinued 0.5 [in_us] OPHTHALMIC TWICE A DAY 3.5 5 December 23, 2023 12:00am December 27, 2023 12:00am December 28, 2023 12:15am Start: 12-25-2022 End: 12-28-2022 erythromycin (Romycin) 5 MG/ GM ophthalmic ointment Start: 12-25-2022 End: 01-02-2023 erythromycin (Romycin) 5 MG/ GM ophthalmic ointment Apply 1 Application to affected eye(s) in the morning and 1 Application at noon and 1 Application in the evening and 1 Application before bedtime. Do all this for [address] a 1/2 inch ribbon of ointment into the lower eyelid. 3.5 g 0 12/25/2022 01/02/2023 Discontinued (Therapy completed) famotidine 20 mg oral tablet (1 source) Histamine-2 Receptor Antagonist Start: 12-25-2022 End: 12-25-2022 famotidine (Pepcid) tablet 20 mg fenofibrate 160 mg oral tablet (20 sources) Peroxisome Proliferator Receptor alpha Agonist Start: 01-30-2023 End: 07-17-2024 take 1 tablet by mouth once daily Fenofibrate 160 mg tablet Discontinued 160 mg PO DAILY October 25, 2023 11:08am July 17, 2024 8:57am Start: 10-16-2021 End: 10-31-2022 take 1 tablet by mouth once daily fenofibrate (Triglide) 160 MG tablet Take 1 tablet (160 mg) by mouth daily. 90 tablet 1 10/31/2022 Active Start: 09-08-2018 take 1 tablet by celestino once daily fenofibrate 160 MG tablet Take 1 tablet by mouth daily 90 tablet 1 09/08/2018 Active 2 ml fentaNYL 0.05 mg/ml injection (2 sources) Opioid Agonist Start: 12-25-2022 End: 12-25-2022 fentaNYL (Sublimaze) injection 50 mcg Start: 12-25-2022 End: 12-25-2022 fentaNYL (Sublimaze) injecti on 25 mcg furosemide 40 mg oral tablet (17 sources) Loop Diuretic Start: 11-15-2022 End: 01-02-2023 take 1 tablet by mouth once daily furosemide (Lasix) 40 MG tablet Take 1 tablet (40 mg) by mouth daily for 5 days. 5 tablet 0 11/15/2022 01/02/2023 Discontinued (Therapy completed) gabapentin 100 mg oral capsule (1 source) Anti-epilepti c Agent Start: 12-25-2022 End: 12-25-2022 gabapentin (Neurontin) capsule 100 mg gadobutrol (Gadavist) injection 10.5 mL (2 sources) Start: 09-16-2023 End: 09-16-2023 take 10.5 mL intravenously once as needed 10.5 mL, IntraVENous, IMG once PRN, contrast, Starting on Sat09/16/23 at 1111, For 1 dose hydroCHLOROthiazide 25 mg / triamterene 37.5 mg oral tablet (4 sources) Potassium-spa ring Diuretic, Thiazide Diuretic Start: 10-16-2021 End: 12-05-2021 take 1 tablet by mouth once daily triamterene-hydr oCHLOROthiazide (MAXZIDE-25) 37.5-25 MG per tablet Take 1 tablet by mouth daily 90 tablet 1 10/16/2021 12/05/2021 Discontinued (Stop Taking at Discharge) Start: 09-08-2018 triamterene-hy drochlorothiazide (MAXZIDE-25) 37.5-25 MG per tablet TAKE 1 TABLET EVERY DAY 90 tablet 1 09/08/2018 Active 1 ml HYDROmorphone hydrochloride 1 mg/ml cartridge (4 sources) Opioid Agonist Start: 10-12-2022 End: 10-16-2022 HYDROmorphone (Dilaudid) injection 0.5 mg Start: 10-12-2022 End: 10-12-2022 HYDROmorphone (Dilaudid) inj ection 1 mg 1 ml ketorolac tromethamine 15 mg/ml cartridge (4 sources) Nonsteroidal Anti-inflammatory Drug, Cyclooxygenase Inhibitor Start: 12-22-2022 End: 12-22-2022 ketorolac (Toradol) injection 15 mg Start: 12-01-2021 End: 12-01-2021 ketorolac (TORADOL) injectio n 30 mg Start: 11-27-2021 End: 11-27-2021 ketorolac (TORADOL) injectio n 15 mg labetalol (Normodyne,Trandate) injection 5 mg (1 source) Start: 12-25-2022 End: 12-25-2022 labetalol (Normodyne,Trandate) injection 5 mg levothyroxine sodium 0.1 mg oral tablet (20 sources) l-Thyrox ine Start: 12-24-2023 levothyroxine 100 mc g (0.1 mg) oral tablet Dose : 100 mcg = 1 tab(s), Oral, qDay, # 30 tab(s), 0 Refill(s) Start Date: 12/24/23 Status: Ordered Quantity: 30.0 Unit: tab(s) Repeat number: 1 Start: 05-21-2023 End: 07-17-2024 take 1 tablet by mouth once daily Levothyroxine 100 mcg tablet Discontinued 100 ug PO DAILY May 01, 2024 2:52pm July 17, 2024 8:57am Start: 01-30-2023 End: 05-21-2023 take 1 capsule by mouth once daily Levothyroxine 100 mcg capsule Discontinued 100 ug PO DAILY May 20, 2023 3:03pm May 21, 2023 1:09pm Start: 02-13-2021 End: 10-31-2022 take 1 tablet by mouth once daily levothyroxine (Synthroid, Levoxyl) 100 MCG tablet Take 1 tablet (100 mcg) by mouth daily. 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 TAKE 1 TABLET BY MOUTH EVERY DAY 90 tablet 2 07/31/2018 Active magnesium hydroxide 80 mg/ml oral suspension (2 sources) Start: 10-14-2022 End: 10-16-2022 magnesium hydroxide (Milk of Magnesia) 400 MG/5ML suspension 30 mL Melatonin disintegrating tablet 10 mg (2 sources) Start: 10-13-2022 End: 10-16-2022 Melatonin disintegrating tablet 10 mg meloxicam 15 mg oral tablet (3 sources) Nonsteroidal Anti-inflammatory Drug Start: 10-15-2023 End: 03-18-2024 take 1 tablet by mouth once daily Meloxicam 15 mg tablet Discontinued 15 mg PO DAILY October 15, 2023 12:00am March 18, 2024 2:17pm meropenem (1 source) Penem Antibacterial Start: 12-01-2021 End: 12-01-2021 meropenem (MERREM) 1000 mg IVPB extended (mini-bag) meropenem (MERREM) 2,000 mg in sodium chloride 0.9 % 100 mL extended infusion IVPB (1 source) Start: 12-01-2021 End: 12-02-2021 meropenem (MERREM) 2,000 mg in sodium chloride 0.9 % 100 mL extended infusion IVPB 1 ml morphine sulfate 4 mg/ml injection (1 source) Opioid Agonist Start: 12-01-2021 End: 12-01-2021 morphine sulfate (PF) injection 4 mg nabumetone 750 mg oral tablet (13 sources) Nonsteroidal Anti-inflammatory Drug Start: 03-06-2022 End: 06-19-2022 take 1 tablet by mouth twice daily nabumetone (Relafen) 750 MG tablet Take 1 tablet (750 mg) by mouth 2 times daily. 60 tablet 0 03/06/2022 06/19/2022 Discontinued (Med list cleanup) naproxen 500 mg oral tablet (3 sources) Nonsteroidal Anti-inflammatory Drug Start: 09-14-2022 End: 09-29-2022 take 1 tablet by mouth in the morning naproxen (Naprosyn) 500 MG tablet Take 1 tablet (500 mg) by mouth in the morning and 1 tablet (500 mg) in the evening. Take with meals. Do all this for 15 days. 30 tablet 0 09/14/2022 09/29/2022 Suspended 2 ml ondansetron 2 mg/ml injection (5 sources) Serotonin-3 Receptor Antagonist Start: 12-25-2022 End: 12-25-2022 ondansetron (Zofran) injection 4 mg Start: 10-12-2022 End: 10-12-2022 ondansetron (Zofran) injecti on 4 mg Start: 09-14-2022 End: 09-17-2022 take 1 tablet by mouth every six hours ondansetron (Zofran) 4 MG tablet Take 1 tablet (4 mg) by mouth in the morning and 1 tablet (4 mg) at noon and 1 tablet (4 mg) in the evening and 1 tablet (4 mg) before bedtime. Do all this for 3 days. 12 tablet 0 09/14/2022 09/17/2022 Active Start: 12-01-2021 End: 12-01-2021 ondansetron (ZOFRAN) injecti on 4 mg ondansetron ODT (Zofran-ODT) disintegrating tablet 4 mg (2 sources) Start: 10-13-2022 End: 10-16-2022 take 1 tablet by mouth every eight hours as needed for nausea and vomiting ondansetron ODT (Zofran-ODT) disintegrating tablet 4 mg oxyCODONE hydrochloride 5 mg oral tablet (15 sources) Opioid Agonist Start: 02-13-2023 End: 03-21-2023 take 1 tablet by mouth every eight hours as needed for pain Oxycodone 5 mg Tablet Discontinued 5 mg PO EVERY 8 HOURS NEEDED as needed for Pain Score 4-10 6 February 13, 2023 March 21, 2023 9:42am Start: 12-25-2022 End: 12-25-2022 oxyCODONE (Roxicodone) immed iate release tablet 5 mg Start: 10-12-2022 End: 10-12-2022 oxyCODONE (Roxicodone) immed iate release tablet 5 mg Start: 12-03-2021 oxyCODONE (SONIA ICODONE) immediate release tablet 5 mg pantoprazole 40 mg delayed release oral tablet (2 sources) Proton Pump Inhibitor Start: 10-14-2022 End: 10-16-2022 pantoprazole (ProtoNix) EC tablet 40 mg rivaroxaban 20 mg oral tablet (20 sources) Factor Xa Inhibitor Start: 10-12-2022 End: 04-14-2024 take 1 tablet by mouth once daily at dinner Rivaroxaban 20 mg tablet Discontinued 20 mg PO EVERY EVENING September 13, 2023 11:54am April 14, 2024 11:22am must administer with evening meal 5 ml sodium chloride 9 mg/ml injection (15 sources) Start: 12-25-2022 End: 12-25-2022 sodium chloride 0.9% (NS) flush 10 mL Start: 12-25-2022 End: 12-25-2022 sodium chloride 0.9 % bolus 500 mL Start: 12-25-2022 End: 12-25-2022 sodium chloride 0.9 % infusi on Start: 12-25-2022 End: 12-25-2022 sodium chloride 0.9% (NS) fl ush 10 mL Start: 12-01-2021 sodium chlorid e flush 0.9 % injection 5-40 mL Start: 12-01-2021 0.9 % sodium c hloride infusion Start: 12-01-2021 End: 12-01-2021 0.9 % sodium chloride bolus Start: 11-27-2021 End: 11-28-2021 0.9 % sodium chloride bolus sulfamethoxazole 800 mg / trimethoprim 160 mg oral tablet (5 sources) Dihydrofolate Reductase Inhibitor Antibacterial, Sulfonamide Antimicrobial Start: 08-17-2022 End: 08-27-2022 take 1 tablet by mouth twice daily sulfamethoxazole-trimethoprim (Bactrim DS) 800-160 MG tablet Indications: Dysuria , Urinary frequency , Urinary urgency , Leukocytes in urine , Hematuria, unspecified type , Recurrent UTI Take 1 tablet by mouth 2 times daily for 10 days. 20 tablet 0 08/17/2022 08/20/2022 Discontinued (Formulary change) Start: 05-17-2022 End: 05-27-2022 take 1 tablet by mouth twice daily sulfamethoxazole-trimethoprim (Bactrim D S) 800-160 MG tablet Take 1 tablet by mouth 2 times daily for 10 days. 20 tablet 0 05/17/2022 05/27/2022 Active tadalafil 5 mg oral tablet (20 sources) Phosphodiesterase 5 Inhibitor Start: 10-24-2022 End: 06-02-2024 take 1 tablet by mouth once daily Tadalafil 5 mg tablet Discontinued 5 mg PO DAILY 90 December 03, 2023 9:45am June 02, 2024 8:28am Start: 10-11-2022 take 1 tablet by celestino th once daily tadalafil (Cialis) 5 MG tablet Indications: Benign prostatic hyperplasia without lower urinary tract symptoms Take 1 tablet (5 mg) by mouth daily. 90 tablet 1 10/11/2022 Active Start: 06-19-2022 End: 08-17-2023 take 1 tablet by mouth every twenty-four hours as needed tadalafil (Cialis) 20 MG tablet Take 1 tablet (20 mg) by mouth Daily as needed for erectile dysfunction. 14 tablet 3 08/17/2022 10/11/2022 Discontinued (Reorder) tamsulosin hydrochloride 0.4 mg oral capsule (20 sources) alpha-Adrenergic Aldo Start: 01-30-2023 End: 06-05-2024 take 1 capsule by mouth once daily Tamsulosin 0.4 mg capsule Discontinued 0.4 mg PO DAILY 90 October 25, 2023 11:07am June 05, 2024 10:45am Start: 09-24-2022 End: 10-16-2022 take 1 capsule by mouth once daily tamsulosin (Flomax) 0.4 MG 24 hr capsule Take 1 capsule (0.4 mg) by mouth daily. 30 capsule 2 10/16/2022 Active 60 actuat testosterone 20.25 mg/actuat topical gel (20 sources) Androgen Start: 07-01-2024 End: 07-17-2024 Testosterone 20.25 mg/1.25 gram (1.62 %) gel in metered-dose pump Discontinued 2 NMA TOPICAL daily 75 July 01, 2024 12:06pm July 17, 2024 8:56am Start: 01-26-2024 End: 03-26-2024 apply 2 [IU] topically once daily in the morning testosterone 20.25 mg/actuation (1.62%) transdermal gel 2 pump(s), Topical, qAM, # 75 gram(s), 1 Refill(s), Pharmacy: [id number], Low testosterone, 187.9, cm, 01/09/24 9:32:00 EST, Height, 105.77, kg, 01/09/24 9:32:00 EST, Dosing Weight Start Date: 01/26/24 Stop Date: 03/26/24 Status: Ordered Quantity: 75.0 Unit: g Repeat number: 2 Indication: Other specified abnormal findings of blood chemistry Start: 12-24-2023 testosterone 2 0.25 mg/actuation (1.62%) transdermal gel APPLY 2 PUMPS TOPICALLY ONCE DAILY Start Date: 12/24/23 Status: Ordered Start: 01-04-2023 End: 08-31-2023 Testosterone 20.25 MG/ACT (1 .62%) gel Indications: Hypogonadism in male Place 2 Pump on the skin daily. 150 g 1 08/01/2023 Active traZODone hydrochloride 50 mg oral tablet (1 source) Serotonin Reuptake Inhibitor Start: 12-02-2021 End: 12-02-2021 traZODone (DESYREL) tablet 50 mg vancomycin 250 mg oral capsule (2 sources) Glycopeptide Antibacterial Start: 06-03-2024 End: 08-11-2024 take 1 capsule by mouth three times daily Vancomycin 250 mg capsule Discontinued 250 mg PO THREE TIMES A DAY June 03, 2024 12:00am August 11, 2024 3:30pm Problems Active Problems Problem Classification Problem Date Documented Da te Episodic/Chronic Abdominal pain (20 sources) Flank pain; Translations: [Unspecified abdominal pain] Onset: 2 Resolved: 3 Episodic Comment on above: Hx pyelonephritis at [facility] 2022- required IV antibiotics via PICC line, ESBL E.Coli MDRBilateral renal US 11/2022- no hydronephrosis or echogenic shadowing, bilateral renal cysts present05/09/2023- urine culture + Fannyhessea vaginae Anxiety disorders (20 sources) Anxiety about treatment; Translations: [Generalized anxiety disorder] Onset: 3 12-13-2022 Chronic Calculus of urinary tract (12 sources) Personal history of urinary calculi; Translations: [Renal pain] Onset: 2 Episodic Chronic obstructive pulmonary disease and bronchiectasis (1 source) Centriacinar emphysema; Translations: [Centrilobular emphysema] 10-10-2022 Chronic Disorders of lipid metabolism (20 sources) Mixed hyperlipidemia; Translations: [Mixed hyperlipidemia] Onset: 9 07-14-2018 Chronic Esophageal disorders (20 sources) Gastroesophageal reflux disease; Translations: [Gastro-esophageal reflux disease without esophagitis] Onset: 6 03-28-2015 Chronic Essential hypertension (20 sources) Benign essential hypertension; Translations: [Essential (primary) hypertension] Onset: 6 03-28-2015 Chronic Genitourinary symptoms and ill-defined conditions (20 sources) Dysuria; Translations: [Dysuria] Onset: 2 02-20-2022 Episodic Hyperplasia of prostate (20 sources) Benign prostatic hyperplasia; Translations: [Benign prostatic hyperplasia without lower urinary tract symptoms] Onset: 5 10-11-2022 Chronic Other aftercare (3 sources) Surgical follow-up; Translations: [Encounter for surgical aftercare following surgery on the circulatory system] 04-14-2024 Episodic Other and unspecified benign neoplasm (4 sources) Benign neoplasm of pituitary gland; Translations: [Benign neoplasm of pituitary gland] Onset: 2 Episodic Other and unspecified benign neoplasm (9 sources) Pituitary adenoma; Translations: [Benign neoplasm of pituitary gland] Onset: 6 01-02-2023 Episodic Other and unspecified benign neoplasm (4 sources) Pituitary macroadenoma; Translations: [Benign neoplasm of pituitary gland] 07-17-2024 Episodic Other circulatory disease (2 sources) Stricture of artery; Translations: [Stricture of artery (HCC)] Onset: 3 Chronic Other circulatory disease (2 sources) Bleeding; Translations: [Hemorrhage, not elsewhere classified] 12-25-2022 Episodic Other circulatory disease (11 sources) Elevated blood pressure; Translations: [Elevated blood-pressure reading, without diagnosis of hypertension] 03-21-2023 Episodic Other connective tissue disease (2 sources) Swelling of lower limb; Translations: [Other specified soft tissue disorders] 10-12-2022 Episodic Other connective tissue disease (4 sources) Swelling of left lower limb; Translations: [Other specified soft tissue disorders] 06-28-2023 Episodic Other diseases of kidney and ureters (3 sources) Complex renal cyst; Translations: [Cyst of kidney, acquired] 10-10-2022 Episodic Other diseases of veins and lymphatics (4 sources) Occlusion of iliac vein; Translations: [Compression of vein] 06-28-2023 Episodic Other diseases of veins and lymphatics (4 sources) Vascular insufficiency; Translations: [Venous insufficiency (chronic) (peripheral)] 07-12-2023 Episodic Other diseases of veins and lymphatics (3 sources) Stasis dermatitis; Translations: [Venous insufficiency (chronic) (peripheral)] 07-12-2023 Episodic Other endocrine disorders (20 sources) Primary hyperparathyroidism; Translations: [Primary hyperparathyroidism] Onset: 3 05-28-2022 Chronic Other endocrine disorders (20 sources) Male hypogonadism; Translations: [Testicular hypofunction] Onset: 6 05-27-2015 Chronic Other endocrine disorders (2 sources) Hyperparathyroidism, unspecified; Translations: [Hyperparathyroidism, unspecified] Onset: 2 Chronic Other endocrine disorders (11 sources) Disorder of pituitary gland; Translations: [Disorder of pituitary gland, unspecified] 03-21-2023 Chronic Comment on above: Head CT unremarkable in 2022 Other endocrine disorders (8 sources) Disorder of pituitary gland, unspecified; Translations: [Unspecified disorder of the pituitary gland and its hypothalamic control] Onset: 5 03-21-2023 Chronic Other endocrine disorders (1 source) Hypogonadotropic hypogonadism; Translations: [Hypopituitarism] 07-31-2023 Chronic Other gastrointestinal disorders (10 sources) History of diverticulitis; Translations: [Personal history of other diseases of the digestive system] 03-21-2023 Episodic Comment on above: s/p colectomy Other gastrointestinal disorders (7 sources) Personal history of other diseases of the digestive system; Translations: [Personal history of unspecified digestive disease] 03-21-2023 Episodic Other liver diseases (10 sources) Steatosis of liver; Translations: [Fatty (change of) liver, not elsewhere classified] 03-21-2023 Chronic Comment on above: Noted on CTA perform ed 01/2023US due 01/2024 Other liver diseases (7 sources) Fatty (change of) liver, not elsewhere classified; Translations: [Other chronic nonalcoholic liver disease] 03-21-2023 Chronic Other male genital disorders (20 sources) Erectile dysfunction co-occurrent and due to arterial insufficiency; Translations: [Combined arterial insufficiency and corporo-venous occlusive erectile dysfunction] Onset: 3 Chronic Other nervous system disorders (2 sources) Walking disability; Translations: [Difficulty in walking, not elsewhere classified] 10-12-2022 Chronic Other nutritional; endocrine; and metabolic disorders (4 sources) Hypercalcemia; Translations: [Hypercalcemia] Onset: 2 Chronic Other nutritional; endocrine; and metabolic disorders (12 sources) Hypercalcemia; Translations: [Hypercalcemia] Onset: 4 01-02-2023 Chronic Other nutritional; endocrine; and metabolic disorders (2 sources) History of Graves' disease 12-24-2023 Episodic Other screening for suspected conditions (not mental disorders or infectious disease) (12 sources) Encounter for screening for osteoporosis; Translations: [Patient encounter status] Onset: 2 Episodic Other skin disorders (4 sources) Sebaceous cyst of scrotum; Translations: [Sebaceous cyst] 02-25-2024 Episodic Other upper respiratory infections (3 sources) Sinusitis; Translations: [Chronic sinusitis, unspecified] Onset: 5 08-11-2024 Chronic Phlebitis; thrombophlebitis and thromboembolism (20 sources) Chronic deep venous thrombosis of iliofemoral vein; Translations: [Chronic embolism and thrombosis of unspecified iliac vein] Onset: 3 12-10-2022 Chronic Phlebitis; thrombophlebitis and thromboembolism (20 sources) Acute deep venous thrombosis of left lower extremity; Translations: [Acute embolism and thrombosis of unspecified deep veins of left lower extremity] Onset: 3 10-12-2022 Episodic Comment on above: [facility] TRIED TO REMOVE IN 11/2022, UNSUCCESSFUL Pleurisy; pneumothorax; pulmonary collapse (1 source) Pleural effusion; Translations: [Pleural effusion, not elsewhere classified] 10-10-2022 Episodic Screening and history of mental health and substance abuse codes (4 sources) Tobacco use and exposure - finding; Translations: [Personal history of nicotine dependence] 10-10-2022 Episodic Substance-related disorders (19 sources) Smoker; Translations: [Nicotine dependence, unspecified, uncomplicated] 02-20-2023 Chronic Thyroid disorders (20 sources) 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; Translations: [Hypothyroidism] Onset: 6 Resolved: 1 12-08-2016 Chronic Unclassified (2 sources) Post-op; Translations: [Post-op] Onset: 3 Unclassified (2 sources) Patient encounter status 12-24-2023 Unclassified (6 sources) Abnormality of pituitary gland; Translations: [E23.7 - Disorder of pituitary gland, unspecified] Past or Other Problems Problem Classification Problem Date Documented Da te Episodic/Chronic Bacterial infection; unspecified site (20 sources) Infection due to ESBL Escherichia coli; Translations: [Other bacterial infections of unspecified site] Onset: 2 Resolved: 2 Episodic Inflammation; infection of eye (except that caused by tuberculosis or sexually transmitteddisease) (7 sources) Hordeolum externum of left eyelid; Translations: [Hordeolum externum left eye, unspecified eyelid] Onset: 4 12-23-2023 Episodic Inflammatory conditions of male genital organs (20 sources) Abscess of scrotum; Translations: [Inflammatory disorders of scrotum] Onset: 1 Resolved: 3 09-15-2020 Episodic Other and unspecified benign neoplasm (20 sources) Prolactinoma; Translations: [Benign neoplasm of pituitary gland] Onset: 6 05-27-2015 Episodic Other and unspecified benign neoplasm (20 sources) Benign neoplasm of pituitary gland and craniopharyngeal duct; Translations: [Benign neoplasm of pituitary gland] Onset: 6 03-28-2015 Episodic Other and unspecified benign neoplasm (20 sources) Macroprolactinoma; Translations: [Benign neoplasm of pituitary gland] Onset: 6 Episodic Other circulatory disease (8 sources) Elevated blood-pressure reading, without diagnosis of hypertension; Translations: [Elevated blood pressure reading without diagnosis of hypertension] Onset: 5 03-21-2023 Episodic Other circulatory disease (2 sources) Hemorrhage, not elsewhere classified; Translations: [Hemorrhage, not elsewhere classified] Onset: 3 Episodic Other diseases of veins and lymphatics (1 source) Venous insufficiency (chronic) (peripheral); Translations: [Venous insufficiency (chronic) (peripheral)] Onset: 5 Episodic Other eye disorders (20 sources) Sebaceous cyst of left eyelid; Translations: [Cysts of left eye, unspecified eyelid] Onset: 1 01-11-2021 Episodic Other eye disorders (2 sources) Cysts of left eye, unspecified eyelid; Translations: [Cysts of left eye, unspecified eyelid] Onset: 2 Episodic Other gastrointestinal disorders (20 sources) Slow transit constipation; Translations: [Slow transit constipation] Onset: 2 12-21-2021 Episodic Other skin disorders (1 source) Sebaceous cyst; Translations: [Sebaceous cyst] Onset: 5 Episodic Residual codes; unclassified (20 sources) Chill; Translations: [Chills (without fever)] Onset: 3 Resolved: 3 Episodic Residual codes; unclassified (2 sources) Other specified personal risk factors, not elsewhere classified; Translations: [Oth personal risk factors, not elsewhere classified] Onset: 2 Episodic Septicemia (except in labor) (20 sources) Sepsis due to Escherichia coli; Translations: [Sepsis due to Escherichia coli [E. coli]] Onset: 2 Resolved: 2 Episodic Spondylosis; intervertebral disc disorders; other back problems (20 sources) Acute low back pain; Translations: [Acute right-sided low back pain without sciatica] Onset: 3 03-06-2022 Episodic Sprains and strains (10 sources) Low back strain; Translations: [Strain of muscle, fascia and tendon of lower back, initial encounter] Onset: 4 05-28-2024 Episodic Thyroid disorders (17 sources) Disorder of thyroid gland; Translations: [Disorder of thyroid, unspecified] Onset: 5 03-21-2023 Episodic Comment on above: HYPOTHYROID TSH 01/25- .36 Urinary tract infections (20 sources) Pyelonephritis; Translations: [Tubulo-interstitial nephritis, not specified as acute or chronic] Onset: 2 Resolved: 3 Episodic Results Test Name Value Interpretation Reference Range Facility Internal Medicine Office Vis igssell 08-11-2024 Internal Medicine Office Visit [facility] [address] [place] [address] OFFICE VISIT Date of Service: 08/11/24 MR#: [id number] Acct: [id number] Name: CORRIE QUEEN Rep #: [id number] : 1960 Provider: Dr. Justice grullon DO Age/Sex: 63/M Location: [facility] [place] Status: Signed with Addenda ADDENDUM by MILLY Gonzalez on 08/11/24 at 1650 Office Procedure Documentation entered by Estefany Gonzalez MA 08/11/24 16:50: Ortho Injections Injections Is this a patient provided medication?: No Office Meds Kenalog 40 mg/mL suspension for injection Performing Provider: Justice Bailey DO Performing Location: [facility] Administered by: Estefany Gonzalez MA on 08/11/24 16:48 Dose Route Admin Location Dispensed Lot Number Expiration Date NDC Man ufacturer 40 mg IM RGM 1 mL [id number] 05/26/25 9049-4528-70 [employer]ERS SQUIBB Date cc: * Signed Intake Vital Signs 08/02/24 08:47 08/11/24 15:31 Height 6 ft 2 in 6 ft 2 in Weight: 234 lb 4 oz BMI 30.0 BP 102/60 Blood Pressure Location Rt brachial Position Sitting Respiration 16 Pulse 83 Pulse Source Monitor Temp 97.4 F L Temp Source Temporal Pulse Oximetry (%) 92 Oxygen Delivery Method room air Intake Visit Reasons: EYES ARE RUNNY, NOT FEELING RIGHT Chief Complaint: eyes pressure and congestion [employer] Required: No Accompanied by: Self Is patient in pain?: Yes (headache and eyes are uncomfortable ) Pain scale (1-10): 4 Allergies meperidine (From Demerol) Adverse Reaction (Intermediate, Verified 08/11/24 15:30) Nausea/Vom/Diarrhea Medications ???Medication ???Instructions ???Recorded ???Confirmed ???Type rosuvastatin 10 mg tablet (Crestor) 10 mg PO DAILY 01/30/23 5 History aspirin 81 mg tablet,delayed 81 mg PO BREAKFAST #30 tabs 08/11/24 Rx release blood pressure monitor #1 ea 03/21/23 08/11/24 Rx triamcinolone acetonide 0.1 % 1 applic topical BID #80 grams 08/11/24 Rx topical cream rivaroxaban 20 mg tablet 20 mg PO QPM #90 tabs 04/14/24 Rx tadalafil 5 mg tablet 5 mg PO DAILY #90 tabs 06/02/24 Rx tamsulosin 0.4 mg capsule 0.4 mg PO DAILY #90 caps 06/05/24 08/11/24 Rx cabergoline 0.5 mg tablet 1 mg (2 x 0.5 mg) PO 2XW #48 tabs 07/17/24 08/11/24 Rx fenofibrate 160 mg tablet 160 mg PO DAILY #90 tabs 07/17/24 08/11/24 Rx levothyroxine 100 mcg tablet 100 mcg PO DAILY #90 tabs 07/17/24 08/11/24 Rx testosterone 2 pump topical QDAY #150 grams 08/11/24 Rx amoxicillin 500 mg tablet 500 mg PO TID #21 tabs 08/11/24 Rx Nurse's Note: redness and pressure in eyes headache and congestion PFSH Medical History Hypercalcemia 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 Hypogonadism 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 Sebaceous cyst of scrotum Kidney pain Liver disease Hearing problem Back problem Wears hearing aid Loss of hearing MRSA infection Marijuana use History of renal disease High cholesterol DVT (deep venous thrombosis) History of diverticulitis Smoker History of edema 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) Small bowel diverticular disease Surgical History History of colon resection Hx of tonsillectomy H/O knee surgery Hx of colonoscopy Hx of cholecystectomy Social History Smoking Status: Current every day smoker tobacco type: cigarettes Tobacco: How many years used: 30 how long ago did patient quit smokin-6months ago alcohol intake: current substance use type: does not use what type of physical activity do you participate in: none HPI HPI Chief Complaint: eyes pressure and congestion Details: CORRIE QUEEN, is a 63 M who presents to the office today for problems with his eyes being itchy and runny. His head being congested and having significant sinus pain and pressure over the left maxillary sinus. He also has a little bit more of a cough than usual. He has not been running a fever. ROS Const Constitutional: No body ache, excessive [...] with exertion, excessive sweating, shortness of breath, (more content not included)... Normal [facility] Abdomen/Pelvis without Conto n 08-02-2024 Abdomen/Pelvis without Cont [facility] Imaging Services [address] [place] [address] Abdomen/Pelvis without Cont MR#: [id number] Acct: [id number] Name: CORRIE QUEEN Rep #: [id number] : 1960 M 63 From: Geovani montano MD PCP: Dr. Justice Bailey, Status: REG ER Study: Abdomen/Pelvis without Cont Date of Exam: 10/19 Exam# [id number] Ordering Dr: Rusty Hawkins DO PROCEDURE: ABDOMEN/PELVIS WITHOUT CONT 08/02/2024 REASON FOR EXAM: RIGHT FLANK PAIN TECHNIQUE: Abdomen and pelvis CT without intravenous contrast. Noncontrast technique limits evaluation of the abdominal and pelvic viscera. Coronal and Sagittal reconstruction series were provided. One or more dose reduction techniques were used (e.g., Automated exposure control, adjustment of the mA and/or kV according to patient size, use of iterative reconstruction technique). PATIENT PREPARATION: Per protocol ORAL CONTRAST TYPE: None. COMPARISON: CT abdomen and pelvis 06/21/2023 FINDINGS: Lung bases: Bibasilar atelectasis. Few scattered calcified granulomas. Liver: Severe diffuse steatosis.. No focal lesion. Hepatomegaly, craniocaudal length 19.1 cm. Gallbladder: No ductal dilation. Status post cholecystectomy. Spleen: Splenomegaly, craniocaudal length 14.1 cm. No focal lesion. Pancreas: Normal size. No surrounding inflammation. Adrenals: Unremarkable. Kidneys: 24 mm left upper pole simple cyst. No calculi or hydronephrosis. Bladder: Circumferential urinary bladder wall thickening. Reproductive Organs: No pelvic mass. Bowel: Small hiatal hernia. The stomach is otherwise unremarkable. No bowel dilation or wall thickening. Colonic diverticulosis without diverticulitis. Moderate colonic stool. Appendix: Normal appendix. Lymph nodes: No suspicious lymph node enlargement. Vasculature: Diffuse atherosclerotic calcification of the abdominal aorta and iliac arteries. Postoperative changes left common iliac vein-proximal femoral vein stent. Peritoneum / Retroperitoneum: No ascites. No pneumoperitoneum. Bones: Degenerative changes of the lumbar spine. Soft tissue: Small fat containing umbilical hernia. CT/Abdomen/Pelvis without Cont IMPRESSION: 1. No acute findings in the abdomen and pelvis. 2. Hepatosplenomegaly and diffuse steatosis. Reading Location: [facility] CC: Dr. Justice Bailey DO; Dr. Rusty Hawkins DO Profile Saw Operator: Signed Normal [facility] Absolute lymphocyte countOrd ered By: [facility] Troyus Hawkins on 08-02-2024 Lymphocytes Auto (Unsp spec) [#/Vol] 1.89 10*3/uL 0.83-4.51 [facility] Absolute neutrophil countOrd ered By: [facility] Troyus Hawkins on 08-02-2024 Neutrophils (Bld) [#/Vol] 7.6 10*3/uL 2.0-7.7 [facility] Anion gap in Serum or Plasma Ordered By: Rusty Hawkins on 08-02-2024 Anion gap [Moles/Vol] 11 mmol/L 5-15 [facility] Automated lymphocyte count a s percentage of total leukocytesOrdered By: Rusty Hawkins on 08-02-2024 Lymphocytes/100 WBC Auto (Unsp spec) 17.5 % Low 19-41 [facility] BUN/creatinine ratioOrdered By: Rusty Hawkins on 08-02-2024 Urea nitrogen/Creatinine [Mass ratio] 15.9 mg/mg 10-20 [facility] Basic Metabolic Profile (BMP )on 08-02-2024 BUN/CRE 15.9 RATIO Normal 10-20 [facility] Comment on above: Performed By: #### L 100.0100, L500.2500 ####[facility] [address] [place], [place], [address] Calcium [Mass/Vol] 10.3 mg/dL Normal 7.6-11.0 [facility] Comment on above: Performed By: #### L 100.0100, L500.2500 ####[facility] [address] [place], [address] Chloride [Moles/Vol] 104 mmol/L Normal 98-108 [facility] Comment on above: Performed By: #### L 100.0100, L500.2500 ####[facility] [address] [place], [address] CO2 [Moles/Vol] 23.0 mmol/L Normal 21.0-32.0 [facility] Comment on above: Performed By: #### L 100.0100, L500.2500 ####[facility] [address] [place], [address] Creatinine [Mass/Vol] 0.94 mg/dL Normal 0.70-1.20 [facility] Comment on above: Performed By: #### L 100.0100, L500.2500 ####[facility] [address] [place], [address] ECRCL 105.56 ml/min Normal 50-250 [facility] Comment on above: Performed By: #### L 100.0100, L500.2500 ####[facility] [address] [place], [address] GAP 11 Normal 5-15 [facility] Comment on above: Performed By: #### L 100.0100, L500.2500 ####[facility] [address] [place], [address] GFR/1.73 sq M.predicted among non-blacks MDRD (S/P/Bld) [Vol rate/Area] 92 mL/min/{1.73_m2} Normal >60 [facility] Comment on above: Result Comment: mL/m in/1.73m2 CKD-EPI Creatinine Equation (2020) Performed By: #### L 100.0100, L500.2500 ####[facility] [address] [place], [address] Glucose [Mass/Vol] 105 mg/dL High 70-99 [facility] Comment on above: Performed By: #### L 100.0100, L500.2500 ####[facility] [address] [place], [address] Potassium [Moles/Vol] 4.1 mmol/L Normal 3.3-5.1 [facility] Comment on above: Performed By: #### L 100.0100, L500.2500 ####[facility] [address] [place], [address] Sodium [Moles/Vol] 138 mmol/L Normal 133-145 [facility] Comment on above: Performed By: #### L 100.0100, L500.2500 ####[facility] [address] [place], [address] Urea nitrogen [Mass/Vol] 15 mg/dL Normal 4-19 [facility] Comment on above: Performed By: #### L 100.0100, L500.2500 ####[facility] [address] [place], [address] Basophil percentageOrdered B y: Remus Ungtesha on 08-02-2024 Basophils/100 WBC (Bld) 0.8 % 0-1 [facility] Bilirubin Test strip Ql (U)O rdered By: Remus Ungur on 08-02-2024 Bilirubin Ql (U) Negative Negative [facility] CBC W/Diff, Automatedon 06-0 Absolute Lymph 1.89 X10 3/uL Normal 0.83-4.51 [facility] Comment on above: Performed By: #### L 100.0100, L500.2500 ####[facility] [address] [place], [address] Absolute Neut 7.6 X10 3/uL Normal 2.0-7.7 [facility] Comment on above: Performed By: #### L 100.0100, L500.2500 ####[facility] [address] [place], [address] Basophils/100 WBC (Bld) 0.8 % Normal 0-1 [facility] Comment on above: Performed By: #### L 100.0100, L500.2500 ####[facility] [address] [place], [address] Eosinophils/100 WBC (Bld) 1.9 % Normal 0-5 [facility] Comment on above: Performed By: #### L 100.0100, L500.2500 ####[facility] [address] [place], [address] Erythrocyte distribution width (RBC) [Ratio] 14.1 % Normal 11.6-14.6 [facility] Comment on above: Performed By: #### L 100.0100, L500.2500 ####[facility] [address] [place], [address] Hematocrit (Bld) [Volume fraction] 49.7 % Normal 40-54 [facility] Comment on above: Performed By: #### L 100.0100, L500.2500 ####[facility] [address] [place], [address] Hemoglobin (Bld) [Mass/Vol] 16.8 g/dL High 13.0-16.5 [facility] Comment on above: Performed By: #### L 100.0100, L500.2500 ####[facility] [address] [place], [address] IG% 0.400 Normal 0.0-0.9 [facility] Comment on above: Result Comment: IG% - Immature Granulocytes (promyelocytes, myelocytes and metamyelocytes) > 1% indicates that a LEFT SHIFT is Present. Performed By: #### L 100.0100, L500.2500 ####[facility] [address] [place], [address] Lymphocytes/100 WBC (Bld) 17.5 % Low 19-41 [facility] Comment on above: Performed By: #### L 100.0100, L500.2500 ####[facility] [address] [place], [address] MCH (RBC) [Entitic mass] 29.8 pg Normal 27.0-32.0 [facility] Comment on above: Performed By: #### L 100.0100, L500.2500 ####[facility] [address] [place], [address] MCHC (RBC) [Mass/Vol] 33.8 g/dL Normal 32-36 [facility] Comment on above: Performed By: #### L 100.0100, L500.2500 ####[facility] [address] [place], [address] MCV (RBC) [Entitic vol] 88.1 fL Normal 80-94 [facility] Comment on above: Performed By: #### L 100.0100, L500.2500 ####[facility] [address] [place], [address] Monocytes/100 WBC (Bld) 8.9 % Normal 0-10 [facility] Comment on above: Performed By: #### L 100.0100, L500.2500 ####[facility] [address] [place], [address] Neutrophils/100 WBC (Bld) 70.5 % High 47-70 [facility] Comment on above: Performed By: #### L 100.0100, L500.2500 ####[facility] [address] [place], [address] Nucleated RBC (Bld) [#/Vol] 0 10*3/uL Normal 0-5 [facility] Comment on above: Performed By: #### L 100.0100, L500.2500 ####[facility] [address] [place], [address] Platelet mean volume (Bld) [Entitic vol] 9.1 fL Normal 6.2-12.0 [facility] Comment on above: Performed By: #### L 100.0100, L500.2500 ####[facility] [address] [place], [address] Platelets (Bld) [#/Vol] 263 10*3/uL Normal 150-450 [facility] Comment on above: Performed By: #### L 100.0100, L500.2500 ####[facility] [address] [place], [address] RBC (Bld) [#/Vol] 5.64 10*6/uL Normal 4.6-6.2 [facility] Comment on above: Performed By: #### L 100.0100, L500.2500 ####[facility] [address] [place], [address] RDW SD 45.4 fl High 35.1-43.9 [facility] Comment on above: Performed By: #### L 100.0100, L500.2500 ####[facility] [address] [place], [address] WBC (Bld) [#/Vol] 10.8 10*3/uL Normal 4.4-11.0 [facility] Comment on above: Performed By: #### L 100.0100, L500.2500 ####[facility] [address] [place], [address] Carbon dioxide, total [Moles /volume] in Central venous bloodOrdered By: Rusty Hawkins on 08-02-2024 CO2 [Moles/Vol] 23.0 mmol/L 21.0-32.0 [facility] Chloride assayOrdered By: Karine Hawkins on 08-02-2024 Chloride [Moles/Vol] 104 mmol/L 98-108 [facility] Emergency Department Summary on 08-02-2024 Emergency Department Summary [facility] Medical Records Department [address] [place] [address] Emergency Department Summary 08/02/24 MR#: [id number] Acct: [id number] Name: CORRIE QUEEN Rep #: [id number] : 1960 63 From: Rusty Hawkins DO PCP: Dr. Justice Bailey, DO Status:DEP ER Location: ED HPI History of Present Illness Chief Complaint: Flank Pain Detail of Chief Complaint: Right flank pain and right eye redness Informant: patient Narrative Narrative: Patient presents with right flank pain that has had intermittently for about a week. Complains of urinary urgency. Denies dysuria. Denies fever or chills or sweats. Patient also states that a few days ago developed a cough and some congestion. He noticed a little bit of drainage from his right eye about 6 days ago. Yesterday he woke up with a matted eye. This morning increased drainage from the right eye. He denies sick contacts. Patient rates his pain in his right back and abdomen about a 5 out of 10. He has history of diverticulitis with prior partial colon resection related to that. Patient's had prior cholecystectomy. 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 Hypogonadism 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 Sebaceous cyst of scrotum Kidney pain Liver disease Hearing problem Back problem Wears hearing aid Loss of hearing MRSA infection Marijuana use History of renal disease High cholesterol DVT (deep venous thrombosis) History of diverticulitis Smoker History of edema 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) Small bowel diverticular disease Home Medications ???Medication ???Instructions ???Recorded ???Last Taken ???Type rosuvastatin 10 mg tablet (Crestor) 10 mg PO DAILY 01/30/23 3 History aspirin 81 mg tablet,delayed 81 mg PO BREAKFAST #30 tabs Unknown Rx release blood pressure monitor #1 ea 03/21/23 Unknown Rx triamcinolone acetonide 0.1 % 1 applic topical BID #80 grams Unknown Rx topical cream rivaroxaban 20 mg tablet 20 mg PO QPM #90 tabs 04/14/24 Unk nown Rx tadalafil 5 mg tablet 5 mg PO DAILY #90 tabs 06/02/24 Un known Rx vancomycin 250 mg capsule 250 mg PO TID #21 caps 06/03/24 Un known Rx tamsulosin 0.4 mg capsule 0.4 mg PO DAILY #90 caps 06/05/24 Unknown Rx cabergoline 0.5 mg tablet 1 mg (2 x 0.5 mg) PO 2XW #48 tabs 07/17/24 Unknown Rx fenofibrate 160 mg tablet 160 mg PO DAILY #90 tabs 07/17/24 Unknown Rx levothyroxine 100 mcg tablet 100 mcg PO DAILY #90 tabs 07/17/24 Unknown Rx testosterone 2 pump topical QDAY #150 grams Unknown Rx Allergy/AdvReac Type Severity Reaction Status Date / Time meperidine (From Demerol) AdvReac Intermediate Nausea/Vom/ Verified 08/02/24 08:47 Diarrhea Surgical History History of colon resection Hx of tonsillectomy H/O knee surgery Hx of colonoscopy Hx of cholecystectomy Social History Smoking Status: Current every day smoker tobacco type: cigarettes Tobacco: How many years used: 30 how long ago did patient quit smokin-6months ago alcohol intake: current substance use type: does not use what type of physical activity do you participate in: none ROS ROS ED Review of Systems ROS Unobtainable: other Constitutional Constitutional ED: Reports lethargy; Denies chills, fever(s), sweats or weight loss Eyes Eyes: Reports other Details: Right eye redness and drainage ; Denies blurry vision, change in vision or diplopia ENT ENT ED: Denies rhinorrhea or sore throat Cardiovascular Cardiovascular: Denies chest pain, orthopnea or racing heartbeat Respiratory/Chest Respiratory/Chest: Reports cough; Denies dyspnea, dyspnea on exertion, orthopnea or sputum Gastrointestinal Gastrointestinal: Reports abdominal pain; Denies diarrhea, nausea or vomiting Genitourinary Genitourinary ED: Denies dysuria, hematuria or urinary frequency Musculoskeletal Musculoskeletal: Reports back pain; Denies arthralgias, myalgias or neck pain Integumentary Denies abscess, Abrasions or rash Neurologic Neurologic: Denies headache(s) or weakness Psychiatric Psychiatric: Denies anxiety, depression or suicidal thoughts Endocrine Endocrinology: Denies polydipsia, polyphagia or polyuria Hematologic/Lymphatic Hematologic/Lymphatic : Denies easy bleeding, easy bruising or lymphadenopathy Allergic/Immunologic Allergic/Immunologic ED: Denies mouth swelling, tongue swelling or urticaria EXAM Physical Exam Const Vital Signs: 08/02/24 08:47 Temperature 98.1 F Temperature Source Oral Pulse Rate 88 Respiratory Rate 18 Blood Pressure 143/78 H Blood Pressure (more content not included)... Normal [facility] Eosinophil percentageOrdered By: Rusty Hawkins on 08-02-2024 Eosinophils/100 WBC (Bld) 1.9 % 0-5 [facility] Erythrocyte distribution wid th ratioOrdered By: Rusty Hawkins on 08-02-2024 Erythrocyte distribution width (RBC) [Ratio] 14.1 % 11.6-14.6 [facility] Erythrocyte distribution wid th standard deviationOrdered By: Rusty Hawkins on 08-02-2024 Erythrocyte distribution width (RBC) [Ratio] 45.4 fl High 35.1-43.9 [facility] Glomerular filtration rate ( GFR) estimation/1.73 sq m using serum, plasma, or whole bOrdered By: Rusty Hawkins on 08-02-2024 GFR/1.73 sq M.predicted among non-blacks MDRD (S/P/Bld) [Vol rate/Area] 92 mL/min/{1.73_m2} >60 [facility] Comment on above: mL/min/1.73m2 CKD-EP I Creatinine Equation (2020) Hematocrit Auto (Bld) [Volum e fraction]Ordered By: Rusty Hawkins on 08-02-2024 Hematocrit (Bld) [Volume fraction] 49.7 % 40-54 [facility] Hemoglobin measurementOrdere d By: Rusty Hawkins on 08-02-2024 Hemoglobin (Bld) [Mass/Vol] 16.8 g/dL High 13.0-16.5 [facility] Immature granulocytes/100 WB C Auto (Bld)Ordered By: Rusty Hawkins on 08-02-2024 Immature granulocytes/100 WBC (Bld) 0.400 % 0.0-0.9 [facility] Comment on above: IG% - Immature Granu locytes (promyelocytes, myelocytes and metamyelocytes) > 1% indicates that a LEFT SHIFT is Present. Ketones Test strip Ql (U)Ord ered By: Rusty Hawkins on 08-02-2024 Ketones Ql (U) Negative Negative [facility] MCV (mean corpuscular volume ) determinationOrdered By: Rusty Hawkins on 08-02-2024 MCV (RBC) [Entitic vol] 88.1 fL 80-94 [facility] Mean corpuscular hemoglobin (MCH) determinationOrdered By: Rusty Hawkins on 08-02-2024 MCH (RBC) [Entitic mass] 29.8 pg 27.0-32.0 [facility] Mean corpuscular hemoglobin concentration (MCHC) determinationOrdered By: Rusty Hawkins on 08-02-2024 MCHC (RBC) [Mass/Vol] 33.8 g/dL 32-36 [facility] Mean platelet volume determi nationOrdered By: Rusty Hawkins on 08-02-2024 Platelet mean volume (Bld) [Entitic vol] 9.1 fL 6.2-12.0 [facility] Microscopic analysis of urin e for red blood cells (RBC)Ordered By: Rusty Hawkins on 08-02-2024 Microscopic analysis of urine for red blood cells (RBC) 0-5 SEEN /hpf 0-5 [facility] Monocyte percentageOrdered B y: Rusty Hawkins on 08-02-2024 Monocytes/100 WBC (Bld) 8.9 % 0-10 [facility] Mucus LM Ql (Urine sed)Order ed By: Rusty Hawkins on 08-02-2024 Mucus Ql (Urine sed) 0 SEEN /hpf [facility] Neutrophil percentageOrdered By: Rusty Hawkins on 08-02-2024 Neutrophils/100 WBC (Bld) 70.5 % High 47-70 [facility] Nitrite Test strip Ql (U)Ord ered By: Rusty Hawkins on 08-02-2024 Nitrite Ql (U) Negative Negative [facility] Nucleated red blood cell per centageOrdered By: Rusty Hawkins on 08-02-2024 Nucleated RBC/100 WBC (Bld) [Ratio] 0 % 0-5 [facility] Platelet countOrdered By: Karine Hawkins on 08-02-2024 Platelets (Bld) [#/Vol] 263 10*3/uL 150-450 [facility] Potassium measurement (mass/ volume)Ordered By: Rusty Hawkins on 08-02-2024 Potassium (Unsp spec) [Mass/Vol] 4.1 mmol/L 3.3-5.1 [facility] Protein Test strip Ql (U)Ord ered By: Rusty Hawkins on 08-02-2024 Protein Ql (U) 15 mg/dl High Negative [facility] RBC Auto (Bld) [#/Vol]Ordere d By: Rusty Hawkins on 08-02-2024 RBC (Bld) [#/Vol] 5.64 10*6/uL 4.6-6.2 [facility] Serum creatinine measurement (mass/volume)Ordered By: Rusty Hawkins on 08-02-2024 Creatinine [Mass/Vol] 0.94 mg/dL 0.70-1.20 [facility] Serum glucose measurement (m ass/volume)Ordered By: Rusty Hawkins on 08-02-2024 Glucose [Mass/Vol] 105 mg/dL High 70-99 [facility] Serum or plasma calcium jamila urement (mass/volume)Ordered By: Rusty Hawkins on 08-02-2024 Calcium [Mass/Vol] 10.3 mg/dL 7.6-11.0 [facility] Serum or plasma urea nitroge n measurement (mass/volume)Ordered By: Rusty Hawkins on 08-02-2024 Urea nitrogen [Mass/Vol] 15 mg/dL 4-19 [facility] Sodium levelOrdered By: Daron Hawkins on 08-02-2024 Sodium [Moles/Vol] 138 mmol/L 133-145 [facility] Squamous epithelial cells de tection in urine sediment by light microscopyOrdered By: Rusty Hawkins on 08-02-2024 Epithelial cells.squamous LM Ql (Urine sed) 10-25 SEEN /hpf 0-5 [facility] Urinalysis, Completeon 08-02 EPI,SQUAMOUS 10-25 SEEN Normal 0-5 [facility] Comment on above: Order Comment: CLEAN CATCH Performed By: #### L 400.0001 #### [facility] [address] [place], [address] RBC 0-5 SEEN Normal 0-5 [facility] Comment on above: Order Comment: CLEAN CATCH Performed By: #### L 400.0001 #### [facility] [address] [place], [address] WBC 0-5 SEEN Normal 0-5 [facility] Comment on above: Order Comment: CLEAN CATCH Performed By: #### L 400.0001 #### [facility] [address] [place], [address] BACTERIA 0 SEEN Normal None Seen [facility] Comment on above: Order Comment: CLEAN CATCH Performed By: #### L 400.0001 #### [facility] [address] [place], [address] Mucus Ql (Urine sed) 0 SEEN Normal [facility] Comment on above: Order Comment: CLEAN CATCH Performed By: #### L 400.0001 #### [facility] [address] [place], [place], [address] Urine clarityOrdered By: Coreen Hawkins on 08-02-2024 Clarity (U) Clear Clear [facility] Urine color determinationOrd ered By: Rusty Hawkins on 08-02-2024 Color (U) Yellow Yellow [facility] Urine glucose detectionOrder ed By: Rusty Hawkins on 08-02-2024 Glucose Ql (U) Normal mg/dl Normal [facility] Urine leukocyte esterase det ection by dipstickOrdered By: Rusty Hawkins on 08-02-2024 Leukocyte esterase Test strip Ql (U) 25 /ul High Negative [facility] Urine pHOrdered By: Rusty jones on 08-02-2024 pH (U) 6.0 [pH] 5.0 - 8.0 [facility] Urine sediment bacteria coun t by microscopy (number/high power field)Ordered By: Rusty Hawkins on 06-08-2025 Bacteria LM.HPF (Urine sed) [#/Area] 0 /[HPF] None Seen [facility] Urine specific gravity measu rementOrdered By: Rusty Hawkins on 08-02-2024 Specific gravity (U) [Rel density] 1.015 1.002-1.030 [facility] Urine urobilinogen measureme ntOrdered By: Rusty Hawkins on 08-02-2024 Urobilinogen Ql (U) Normal mg/dl Normal [facility] White blood cell (WBC) count Ordered By: Rusty Hawkins on 08-02-2024 WBC (Bld) [#/Vol] 10.8 10*3/uL 4.4-11.0 [facility] White blood cell countOrdere d By: Rusty Hawkins on 08-02-2024 White blood cell count 0-5 SEEN /hpf 0-5 [facility] Endocrinology Visit Reporton 07-17-2024 Endocrinology Visit Report [facility] [address] [place] [address] OFFICE VISIT Date of Service: 07/17/24 MR#: [id number] Acct: [id number] Name: CORRIE QUEEN Rep #: [id number] : 1960 Provider: Linette Baron Age/Sex: 63/M [place] [facility] [place]: Signed Intake Vital Signs 03/31/24 10:21 05/28/24 12:18 07/17/24 08:15 Height 6 ft 2 in 6 ft 2 in 6 ft 2 in Weight: 235 lb 6 oz BMI 30.2 BP 153/82 H Blood Pressure Location Lt brachial Position Sitting Pulse 70 Pulse Source Monitor Pulse Oximetry (%) 95 Oxygen Delivery Method room air Intake Visit Reasons: Pituitary Chief Complaint: Pituitary, thyroid, calcium Allergies meperidine (From Demerol) Adverse Reaction (Intermediate, Verified 07/17/24 08:19) Nausea/Vom/Diarrhea Medications ???Medication ???Instructions ???Recorded ???Confirmed ???Type rosuvastatin 10 mg tablet (Crestor) 10 mg PO DAILY 01/30/23 5 History aspirin 81 mg tablet,delayed 81 mg PO BREAKFAST #30 tabs 07/17/24 Rx release blood pressure monitor #1 ea 03/21/23 07/17/24 Rx triamcinolone acetonide 0.1 % 1 applic topical BID #80 grams 07/17/24 Rx topical cream rivaroxaban 20 mg tablet 20 mg PO QPM #90 tabs 04/14/24 Rx tadalafil 5 mg tablet 5 mg PO DAILY #90 tabs 06/02/24 Rx vancomycin 250 mg capsule 250 mg PO TID #21 caps 06/03/24 Rx tamsulosin 0.4 mg capsule 0.4 mg PO DAILY #90 caps 06/05/24 07/17/24 Rx cabergoline 0.5 mg tablet 1 mg (2 x 0.5 mg) PO 2XW #48 tabs 07/17/24 07/17/24 Rx fenofibrate 160 mg tablet 160 mg PO DAILY #90 tabs 07/17/24 07/17/24 Rx levothyroxine 100 mcg tablet 100 mcg PO DAILY #90 tabs 07/17/24 07/17/24 Rx testosterone 2 pump topical QDAY #150 grams 07/17/24 Rx PFSH Medical History Hypercalcemia 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 1. Macroadenoma, prolactin producing Presented in 2011 with headaches and double vision. MRI showed a 3 cm macroadenoma. Prolactin levels were elevated. Testosterone levels were low and did not improve after prolactin normalized. Other hormonal work up was normal. He is currently feeling well. No loss of peripheral vision, no headaches. He is taking cabergoline 1 mg twice a week. 2. Hypogonadism He is taking Androgel 2 pumps daily. He is aware of risks of clotting and prostate cancer growth. 3. Hypothyroidism due to Stanley's He is taking levothyroxine and TSH levels are normal. 4. History of elevated calcium. I don't believe this is an issue as ionized calcium levels have been normal. He is a daily smoker and has history of DVT. ROS Const Constitutional: No fatigue, weight change or change in appetite Eyes Eyes: No change in vision ENT ENT: No dizziness/vertigo or difficulty swallowing Cardio Cardiology: Positive for other (left leg swells, due to history DVT); No chest pain at rest, chest pain with exertion, shortness of breath or palpitations Musc Musculoskeletal: No abnormal gait, joint pain, numbness or tingling Neuro Neurology: No abnormal gait, memory loss, numbness or tingling Psych Psychiatric: No change in appetite, No memory loss and No Thoughts of harming yourself/Others Resp Respiratory: No cough, chest congestion or shortness of breath Gastro GI: No abdominal pain, constipation, diarrhea or difficulty swallowing Genitourinary Male: No burning urination Skin Skin: No itchy eyes or wounds Endo Endocrine: No fatigue or weight change Aller/Imm Allergy/Immunologic: No itchy eyes (more content not included)... Normal [facility] Urine Cultureon 06-02-2024 URC Pending Streptococcus viridans group [place] Count 50,000-80,000 Streptococcus viridans group: REACTION Ampicillin Islt JADE <=0.25 Penicillin G Islt JADE <=0.06 S Cefotaxime Islt JDAE <=0.12 S cefTRIAXone Islt JADE <=0.12 S Linezolid Islt JADE <=2 S Vancomycin Islt JADE 0.5 S Normal [facility] Comment on above: Performed By: #### M 100.2200 ####[facility] [id number] [place], [place], [address] Laboratory - Chemistry and C hemistry - challengeOrdered By: Stanislaw Alejandra on 05-28-2024 Bilirubin Ql (U) Negative [facility] Glucose Ql (U) Negative [facility] Ketones Ql (U) Trace (5) [facility] pH (U) 5.0 [pH] [facility] Specific gravity (U) [Rel density] 1.015 [facility] Urobilinogen (U) [Mass/Vol] 0.7362047 mg/dL [facility] Laboratory - Hematology and Cell countsOrdered By: Stanislaw Alejandra on 05-28-2024 Hemoglobin Ql (U) Negative [facility] Laboratory - Specimen inform ationOrdered By: Stanislaw Alejandra on 05-28-2024 Clarity (U) Clear [facility] Color (U) DARK YELLOW [facility] Laboratory - UrinalysisOrder ed By: Stanislaw Alejandra on 05-28-2024 Nitrite Ql (U) Negative [facility] Protein Ql (U) Negative [facility] No Panel InformationOrdered By: Stanislaw Alejandra on 05-28-2024 Urine Leukocytes Negatve [facility] Urine Non-Hemolyzed Blood Negative [facility] Urgent Care Visit Reporton 0 05-28-2024 Urgent Care Visit Report [facility] [address], [address] [place] [address] OFFICE VISIT Date of Service: 05/28/24 MR#: [id number] Acct: [id number] Name: CORRIE QUEEN Rep #: [id number] : 1960 Provider: EDMUND Arita Age/Sex: 63/M Location: [facility] [place] Status: Signed Intake Vital Signs 03/31/24 10:21 05/28/24 12:18 Height 6 ft 2 in 6 ft 2 in BP 122/76 H Position Sitting Pulse 80 Temp 97.9 F Temp Source Oral Pulse Oximetry (%) 95 Oxygen Delivery Method room air Intake Visit Reasons: CONCERN FOR UTI Accompanied by: Self Allergies meperidine (From Demerol) Adverse Reaction (Intermediate, Verified 02/04/25 10:19) Nausea/Vom/Diarrhea Nurse's Note: Patient Right kidney has been hurting and his urine has been dark. Patient states he has a kidney disease. Patient states this has been going on a few weeks. [facility] Medical History Sebaceous cyst of scrotum Kidney [...] you participate in: none HPI HPI Details: CORRIE QUEEN, is a 63 M who presents to the office today for concern for possible UTI. Patient states that he believes that he may have a UTI secondary to right lower back pain. Patient states that he is not sure whether he pulled his back or his UTI however has had UTIs that caused him to be hospitalized and wants to make sure. He denies numbness, tingling or loss range of motion. No fever, chills or sweats. No nausea, vomiting or diarrhea. No loss of taste or smell. No other associated symptoms or alleviating/aggravati ng factors. ROS Const Constitutional: No other (As above) Exam Const General: cooperative and healthy appearing Resp Effort Inspection: normal respiratory effort Auscultation: Bilateral: Clear to Auscultation Cardio Rate: regular rate Rhythm: regular rhythm GI Auscultation: normal bowel sounds General: No CVA tenderness Psych Appearance: grossly normal Mental Status: mental status grossly normal Results POC Urinalysis Dip (Clinic) Office Urine Color DARK YELLOW Last Edit by Mary Alberto MA on 05/28/24 13:02 Office Urine Clarity Clear Last Edit by Mary Alberto MA on 05/28/24 13:02 Office Urine Glucose Negative Last Edit by Mary Alberto MA on 05/28/24 13:02 Office Urine Ketones Trace (5) Last Edit by Mary Alberto MA on 05/28/24 13:02 Off Ur Spec [place] 1.015 Last Edit by Mary Alberto MA on 05/28/24 13:02 Office Urine pH 5.0 Last Edit by Mary Alberto MA on 05/28/24 13:02 Office Urine Bilirubin Negative Last Edit by Mary Alberto MA on 05/28/24 13:02 Office Urine Urobilinogen 0.2 mg/dL Last Edit by Mary Alberto MA on 05/28/24 13:02 Office Urine Blood Negative Last Edit by Mary Alberto MA on 05/28/24 13:02 Office Urine Blood Hemolyzed Negative Last Edit by Mary Alberto MA on 05/28/24 13:02 Office Urine Protein Negative Last Edit by Mary Alberto MA on 05/28/24 13:02 Office Urine Nitrate Negative Last Edit by Mary Alberto MA on 05/28/24 13:02 Off Ur Leukocytes Negatve Last Edit by Mary Alberto MA on 05/28/24 13:02 Coding Level of Care Code Off vis,est,level 3 Diagnoses Strain of lumbar region S39.012A Assessment and Plan Assessment and Plan (1) Strain of lumbar region: Status: Acute Plan: UA performed in the office today with no signs of UTI however we will send the urine for culture and sensitivity. Encouraged to get plenty of rest, drink lots of clear liquids, and use Tylenol or Ibuprofen (unless contraindicated) for fever and comfort. Patient also educated on other symptomatic management techniques. To be seen in 7-10 days if no improvement; sooner if worsening of symptoms. Patient advised of potential red flags and when appropriate to report to the ED. Patient verbalized understanding and agreement with all the above. Orders: Orders POC Urinalysis Dip (Clinic) Today N23 - Unspecified renal colic Culture, Urine Tod (more content not included)... Normal [facility] Urine cultureOrdered By: [place] Alejandra on 05-28-2024 Bacteria identified Cx Nom (U) Streptococcus viridans group Abnormal [facility] TFTESTon 04-25-2024 Free Testost Direct 5.5 pg/mL Low 6.6-18.1 [facility] Comment on above: Result Comment: Perf ormed At: [address] [id number] Willi Adams MD Ph:[phone] Performed At: [address] [id number] Pau Carranza PhD Ph:[phone] Performed By: #### C AUR #### [place] [address] #### CRUR #### [address] [address] Testosterone Lvl 360 ng/dL Normal 264-916 [facility] Comment on above: Result Comment: Adul t male reference interval is based on a population of healthy nonobese males (BMI <30) between 19 and 39 years old. erica Joseph.al. JCEM 2017,102;8803-7921. PMID: [id number]. Performed By: #### C AUR #### [place] [address] #### CRUR #### [address] [address] Yamileth 04-22-2024 TSI 23.80 IU/L High 0.00-0.55 [facility] Comment on above: Result Comment: Perf ormed At: [address] [id number] Willi Adams MD Ph:[phone] Performed By: #### C AUR #### [place] [address] #### CRUR #### [address] [address] .Auto Diffon 04-20-2024 Basophil, Absolute 0.1 10 3/mcL Normal 0.0-0.2 [facility] Comment on above: Performed By: #### V IDH, ANEU, LIPID, [id number], FT3, FT4, GFR, ADIFF, [id number], CAION, TSH, CBC, CMP #### [address] [address] #### PROL, PTH #### [address] [address] Basophils/100 WBC (Bld) 1.0 % Normal 0.0-2.5 [facility] Comment on above: Performed By: #### V IDH, ANEU, LIPID, [id number], FT3, FT4, GFR, ADIFF, [id number], CAION, TSH, CBC, CMP #### [address] [address] #### PROL, PTH #### [address] [address] Eosinophil, Absolute 0.3 10 3/mcL Normal 0.0-0.7 [facility] Comment on above: Performed By: #### V IDH, ANEU, LIPID, [id number], FT3, FT4, GFR, ADIFF, [id number], CAION, TSH, CBC, CMP #### [address] [address] #### PROL, PTH #### [address] [address] Eosinophils/100 WBC (Bld) 4.3 % Normal 0.0-7.0 [facility] Comment on above: Performed By: #### V IDH, ANEU, LIPID, [id number], FT3, FT4, GFR, ADIFF, [id number], CAION, TSH, CBC, CMP #### [address] [address] #### PROL, PTH #### [address] [address] Lymphocyte, Absolute 2.1 10 3/mcL Normal 0.9-4.3 [facility] Comment on above: Performed By: #### V IDH, ANEU, LIPID, [id number], FT3, FT4, GFR, ADIFF, [id number], CAION, TSH, CBC, CMP #### [address] [address] #### PROL, PTH #### [address] [address] Lymphocytes/100 WBC (Bld) 28.0 % Normal 20.0-40.0 [facility] Comment on above: Performed By: #### V IDH, ANEU, LIPID, [id number], FT3, FT4, GFR, ADIFF, [id number], CAION, TSH, CBC, CMP #### [address] [address] #### PROL, PTH #### [address] [address] Monocyte, Absolute 0.8 10 3/mcL Normal 0.1-1.4 [facility] Comment on above: Performed By: #### V IDH, ANEU, LIPID, [id number], FT3, FT4, GFR, ADIFF, [id number], CAION, TSH, CBC, CMP #### [place] [address] #### PROL, PTH #### [address] [address] Monocytes/100 WBC (Bld) 10.4 % Normal 2.0-13.0 [facility] Comment on above: Performed By: #### V IDH, ANEU, LIPID, [id number], FT3, FT4, GFR, ADIFF, [id number], CAION, TSH, CBC, CMP #### [address] [address] #### PROL, PTH #### [address] [address] Neutrophils/100 WBC (Bld) 56.3 % Normal 50.0-75.0 [facility] Comment on above: Performed By: #### V IDH, ANEU, LIPID, [id number], FT3, FT4, GFR, ADIFF, [id number], CAION, TSH, CBC, CMP #### [address] [address] #### PROL, PTH #### [address] [address] .GFRon 04-20-2024 Estimated Glomerular Filtration Rate 70 ml/min/1.73sqm Normal [facility] Comment on above: Result Comment: Stages of Chronic Kidney Disease (CKD) Stage Description eGFR(ml/min/1.73 sq.m.) CKD 1 Normal kidney function or >=90 normal kindney function with possible kidney damage (ex. Proteinuria) CKD 2 Kidney damage with mild loss 60-89 of kidney function CKD 3a Mild to moderate loss of kidney 45-59 function CKD 3b Moderate to severe loss of 30-44 of kindey function CKD 4 Severe loss of kidney function 15-29 CKD 5 Kidney failure <15 Note: (go live 2024) the eGFR calculation was updated to the 2020 CKD-EPI creatinine equation without a race factor to calculate the eGFR results. Performed By: #### V IDH, ANEU, LIPID, [id number], FT3, FT4, GFR, ADIFF, [id number], CAION, TSH, CBC, CMP #### [address] [address] #### PROL, PTH #### [place] [address] .NEUABSon 04-20-2024 Neutrophil, Absolute 4.2 10 3/mcL Normal 2.3-8.1 [facility] Comment on above: Performed By: #### V IDH, ANEU, LIPID, [id number], FT3, FT4, GFR, ADIFF, [id number], CAION, TSH, CBC, CMP #### [address] [address] #### PROL, PTH #### [place] [address] CAIONon 04-20-2024 Calcium Ionized 1.25 mmol/L Normal 1.12-1.32 [facility] Comment on above: Performed By: #### V IDH, ANEU, LIPID, [id number], FT3, FT4, GFR, ADIFF, [id number], CAION, TSH, CBC, CMP #### [address] [address] #### PROL, PTH #### [place] [address] CAURon 04-20-2024 Calcium [Mass/Vol] 12.0 mg/dL Normal [facility] Comment on above: Performed By: #### C AUR #### [place] [address] #### CRUR #### [address] [address] CBCon 04-20-2024 Erythrocyte distribution width (RBC) [Ratio] 14.8 % Normal 11.5-15.5 [facility] Comment on above: Performed By: #### V IDH, ANEU, LIPID, [id number], FT3, FT4, GFR, ADIFF, [id number], CAION, TSH, CBC, CMP #### [address] [address] #### PROL, PTH #### [place] [address] Hematocrit (Bld) [Volume fraction] 50.6 % Normal 40.0-52.0 [facility] Comment on above: Performed By: #### V IDH, ANEU, LIPID, [id number], FT3, FT4, GFR, ADIFF, [id number], CAION, TSH, CBC, CMP #### [address] [address] #### PROL, PTH #### [place] [address] Hgb 17.3 G/dL Normal 13.0-17.5 [facility] Comment on above: Performed By: #### V IDH, ANEU, LIPID, [id number], FT3, FT4, GFR, ADIFF, [id number], CAION, TSH, CBC, CMP #### [address] [address] #### PROL, PTH #### [place] [address] MCH (RBC) [Entitic mass] 30.1 pg Normal 27.0-33.0 [facility] Comment on above: Performed By: #### V IDH, ANEU, LIPID, [id number], FT3, FT4, GFR, ADIFF, [id number], CAION, TSH, CBC, CMP #### [place] [address] #### PROL, PTH #### [place] [address] MCHC 34.2 G/dL Normal 32.0-36.0 [facility] Comment on above: Performed By: #### V IDH, ANEU, LIPID, [id number], FT3, FT4, GFR, ADIFF, [id number], CAION, TSH, CBC, CMP #### [place] [address] #### PROL, PTH #### [place] [address] MCV (RBC) [Entitic vol] 88.0 fL Normal 81.0-100.0 A [facility] Comment on above: Performed By: #### V IDH, ANEU, LIPID, [id number], FT3, FT4, GFR, ADIFF, [id number], CAION, TSH, CBC, CMP #### [place] [address] #### PROL, PTH #### [place] [address] Platelet 289 10 3/mcL Normal 150-450 [facility] Comment on above: Performed By: #### V IDH, ANEU, LIPID, [id number], FT3, FT4, GFR, ADIFF, [id number], CAION, TSH, CBC, CMP #### [place] [address] #### PROL, PTH #### [place] [address] Platelet mean volume (Bld) [Entitic vol] 7.4 fL Normal 6.4-10.5 [facility] Comment on above: Performed By: #### V IDH, ANEU, LIPID, [id number], FT3, FT4, GFR, ADIFF, [id number], CAION, TSH, CBC, CMP #### [place] [address] #### PROL, PTH #### [address] [address] RBC 5.75 10 6/mcL Normal 4.50-6.00 [facility] Comment on above: Performed By: #### V IDH, ANEU, LIPID, [id number], FT3, FT4, GFR, ADIFF, [id number], CAION, TSH, CBC, CMP #### [address] [address] #### PROL, PTH #### [place] [address] WBC 7.4 10 3/mcL Normal 4.5-10.8 [facility] Comment on above: Performed By: #### V IDH, ANEU, LIPID, [id number], FT3, FT4, GFR, ADIFF, [id number], CAION, TSH, CBC, CMP #### [address] [address] #### PROL, PTH #### [place] [address] CMPon 04-20-2024 Albumin Level 4.2 G/dL Normal 3.4-4.8 [facility] Comment on above: Performed By: #### V IDH, ANEU, LIPID, [id number], FT3, FT4, GFR, ADIFF, [id number], CAION, TSH, CBC, CMP #### [address] [address] #### PROL, PTH #### [place] [address] Albumin/Globulin [Mass ratio] 1.1 {ratio} Normal 1.1-2.5 [facility] Comment on above: Performed By: #### V IDH, ANEU, LIPID, [id number], FT3, FT4, GFR, ADIFF, [id number], CAION, TSH, CBC, CMP #### [address] [address] #### PROL, PTH #### [place] [address] ALP [Catalytic activity/Vol] 75 U/L Normal 40-135 [facility] Comment on above: Performed By: #### V IDH, ANEU, LIPID, [id number], FT3, FT4, GFR, ADIFF, [id number], CAION, TSH, CBC, CMP #### [address] [address] #### PROL, PTH #### [place] [address] ALT [Catalytic activity/Vol] 27 U/L Normal 16-63 [facility] Comment on above: Performed By: #### V IDH, ANEU, LIPID, [id number], FT3, FT4, GFR, ADIFF, [id number], CAION, TSH, CBC, CMP #### [address] [address] #### PROL, PTH #### [place] [address] AST [Catalytic activity/Vol] 15 U/L Normal 10-40 [facility] Comment on above: Performed By: #### V IDH, ANEU, LIPID, [id number], FT3, FT4, GFR, ADIFF, [id number], CAION, TSH, CBC, CMP #### [address] [address] #### PROL, PTH #### [place] [address] Bili Total 0.7 mg/dL Normal 0.2-1.0 [facility] Comment on above: Result Comment: Use of this assay is not recommended for patients undergoing treatment with eltrombopag due to the potential for falsely elevated results. Performed By: #### V IDH, ANEU, LIPID, [id number], FT3, FT4, GFR, ADIFF, [id number], CAION, TSH, CBC, CMP #### [address] [address] #### PROL, PTH #### [place] [address] BUN/Creatinine Ratio 15 ratio Normal 7-27 [facility] Comment on above: Performed By: #### V IDH, ANEU, LIPID, [id number], FT3, FT4, GFR, ADIFF, [id number], CAION, TSH, CBC, CMP #### [address] [address] #### PROL, PTH #### [address] [address] Calcium [Mass/Vol] 10.4 mg/dL High 8.4-10.2 [facility] Comment on above: Performed By: #### V IDH, ANEU, LIPID, [id number], FT3, FT4, GFR, ADIFF, [id number], CAION, TSH, CBC, CMP #### [address] [address] #### PROL, PTH #### [address] [address] Chloride [Moles/Vol] 101 mmol/L Normal 98-107 [facility] Comment on above: Performed By: #### V IDH, ANEU, LIPID, [id number], FT3, FT4, GFR, ADIFF, [id number], CAION, TSH, CBC, CMP #### [address] [address] #### PROL, PTH #### [address] [address] CO2 [Moles/Vol] 28 mmol/L Normal 23-31 [facility] Comment on above: Performed By: #### V IDH, ANEU, LIPID, [id number], FT3, FT4, GFR, ADIFF, [id number], CAION, TSH, CBC, CMP #### [address] [address] #### PROL, PTH #### [address] [address] Creatinine [Mass/Vol] 1.17 mg/dL Normal 0.70-1.30 [facility] Comment on above: Result Comment: Test ing performed on Siemens Dimension EXL analyzer using a modified kinetic Jody technique. Performed By: #### V IDH, ANEU, LIPID, [id number], FT3, FT4, GFR, ADIFF, [id number], CAION, TSH, CBC, CMP #### [address] [address] #### PROL, PTH #### [address] [address] Electrolyte Balance 7.0 mEq/L Normal 4.0-15.0 [facility] Comment on above: Performed By: #### V IDH, ANEU, LIPID, [id number], FT3, FT4, GFR, ADIFF, [id number], CAION, TSH, CBC, CMP #### [address] [address] #### PROL, PTH #### [address] [address] Globulin 3.7 G/dL Normal 1.5-3.8 [facility] Comment on above: Performed By: #### V IDH, ANEU, LIPID, [id number], FT3, FT4, GFR, ADIFF, [id number], CAION, TSH, CBC, CMP #### [place] [address] #### PROL, PTH #### [address] [address] Glucose [Mass/Vol] 108 mg/dL Normal 80-115 [facility] Comment on above: Performed By: #### V IDH, ANEU, LIPID, [id number], FT3, FT4, GFR, ADIFF, [id number], CAION, TSH, CBC, CMP #### [address] [address] #### PROL, PTH #### [address] [address] Potassium [Moles/Vol] 4.2 mmol/L Normal 3.5-5.1 [facility] Comment on above: Performed By: #### V IDH, ANEU, LIPID, [id number], FT3, FT4, GFR, ADIFF, [id number], CAION, TSH, CBC, CMP #### [place] [address] #### PROL, PTH #### [address] [address] Sodium [Moles/Vol] 136 mmol/L Normal 136-145 [facility] Comment on above: Performed By: #### V IDH, ANEU, LIPID, [id number], FT3, FT4, GFR, ADIFF, [id number], CAION, TSH, CBC, CMP #### [address] [address] #### PROL, PTH #### [place] [address] Total Protein 7.9 G/dL Normal 6.4-8.2 [facility] Comment on above: Performed By: #### V IDH, ANEU, LIPID, [id number], FT3, FT4, GFR, ADIFF, [id number], CAION, TSH, CBC, CMP #### [address] [address] #### PROL, PTH #### [place] [address] Urea nitrogen [Mass/Vol] 17 mg/dL Normal 7-18 [facility] Comment on above: Performed By: #### V IDH, ANEU, LIPID, [id number], FT3, FT4, GFR, ADIFF, [id number], CAION, TSH, CBC, CMP #### [address] [address] #### PROL, PTH #### [place] [address] CRURon 04-20-2024 U Creatinine 109.0 mg/dL Normal [facility] Comment on above: Performed By: #### C AUR #### [place] [address] #### CRUR #### [place] [address] FT3on 04-20-2024 Free T3 [Mass/Vol] 2.88 pg/mL Normal 2.30-4.00 [facility] Comment on above: Performed By: #### C AUR #### [place] [address] #### CRUR #### [address] [address] FT4on 04-20-2024 Free T4 [Mass/Vol] 0.91 ng/dL Normal 0.76-1.46 [facility] Comment on above: Performed By: #### V IDH, ANEU, LIPID, [id number], FT3, FT4, GFR, ADIFF, [id number], CAION, TSH, CBC, CMP #### [place] [id number] [place], [place] [address] #### PROL, PTH #### [facility] [address] [place] [address] LABORATORYOrdered By: Carola Ceja on 04-20-2024 Calcium (U) [Mass/Vol] 12.0 mg/dL Invalid Interpretation Code AH ADM SS LABORATORYOrdered By: SYSTEM SYSTEM on 04-20-2024 Creatinine (U) [Mass/Vol] 109.0 mg/dL Invali d Interpretation Code AO ADM SS 25-hydroxyvitamin D3 [Mass/Vol] 31.3 ng/mL Invalid Interpretation Code AO ADM SS Comment on above: Interpretive Data: I nterpretive Values Based on Total 25(OH) Vitamin D: Deficient <20 ng/mL Insufficient 20 - <30 ng/mL Sufficient 30-100 ng/mL Albumin BCP dye [Mass/Vol] 4.2 G/dL Normal 3.4 - 4.8 G/dL AO ADM SS Albumin/Globulin [Mass ratio] 1.1 {ratio} Normal 1.1 - 2.5 ratio AO ADM SS ALP [Catalytic activity/Vol] 75 U/L Normal 40 - 135 U/L AO ADM SS ALT With P-5'-P [Catalytic activity/Vol] 27 U/L Normal 16 - 63 U/L AO ADM SS AST With P-5'-P [Catalytic activity/Vol] 15 U/L Normal 10 - 40 U/L AO ADM SS Basophils (Bld) [#/Vol] 0.1 103/mcL Normal 0.0 - 0.2 10^3/mcL AO Workflow SS Basophils/100 WBC (Bld) 1.0 % Normal 0.0 - 2.5 % AO Workflow SS Bilirubin [Mass/Vol] 0.7 mg/dL Normal 0.2 - 1 .0 mg/dL AO ADM SS Comment on above: Interpretive Data: U se of this assay is not recommended for patients undergoing treatment with eltrombopag due to the potential for falsely elevated results. Calcium [Mass/Vol] 10.4 mg/dL High 8.4 - 10. 2 mg/dL AO ADM SS Chloride [Moles/Vol] 101 mmol/L Normal 98 - 10 7 mmol/L AO ADM SS CO2 [Moles/Vol] 28 mmol/L Normal 23 - 31 mmol/L AO ADM SS Creatinine [Mass/Vol] 1.17 mg/dL Normal 0.70 - 1.30 mg/dL AO ADM SS Comment on above: Interpretive Data: T esting performed on Siemens Dimension EXL analyzer using a modified kinetic Jody technique. Electrolyte Balance 7.0 mEq/L Normal 4.0 - 15 .0 mEq/L AO ADM SS Eosinophil, Absolute 0.3 103/mcL Normal 0.0 - 0 .7 10^3/mcL AO Workflow SS Eosinophils/100 WBC (Bld) 4.3 % Normal 0.0 - 7.0 % AO Workflow SS Erythrocyte distribution width (RBC) [Ratio] 14.8 % Normal 11.5 - 15.5 % AO Workflow SS Estimated Glomerular Filtration Rate 70 ml/min/1.73sqm Invalid Interpretation Code AO Chemistry S Comment on above: Interpretive Data: Stages of Chronic Kidney Disease (CKD) Stage Description eGFR(ml/min/1.73 sq.m.) CKD 1 Normal kidney function or >=90 normal kindney function with possible kidney damage (ex. Proteinuria) CKD 2 Kidney damage with mild loss 60-89 of kidney function CKD 3a Mild to moderate loss of kidney 45-59 function CKD 3b Moderate to severe loss of 30-44 of kindey function CKD 4 Severe loss of kidney function 15-29 CKD 5 Kidney failure <15 Note: (go live 2024) the eGFR calculation was updated to the 2020 CKD-EPI creatinine equation without a race factor to calculate the eGFR results. Free T3 [Mass/Vol] 2.88 pg/mL Normal 2.30 - 4. 00 pg/mL AO ADM SS Free T4 [Mass/Vol] 0.91 ng/dL Normal 0.76 - 1. 46 ng/dL AO ADM SS Globulin 3.7 G/dL Normal 1.5 - 3.8 G/dL AO ADM SS Glucose [Mass/Vol] 108 mg/dL Normal 80 - 115 mg/dL AO ADM SS Hematocrit (Bld) [Volume fraction] 50.6 % Normal 40.0 - 52.0 % AO Workflow SS Hemoglobin (Bld) [Mass/Vol] 17.3 G/dL Normal 13.0 - 17.5 G/dL AO Workflow SS Lymphocytes (Bld) [#/Vol] 2.1 103/mcL Normal 0. 9 - 4.3 10^3/mcL AO Workflow SS Lymphocytes/100 WBC (Bld) 28.0 % Normal 20 .0 - 40.0 % AO Workflow SS MCH (RBC) [Entitic mass] 30.1 pg Normal 27. 0 - 33.0 pg AO Workflow SS MCHC 34.2 G/dL Normal 32.0 - 36.0 G/dL AO Workflow SS MCV (RBC) [Entitic vol] 88.0 fL Normal 81.0 - 100.0 fL AO Workflow SS Monocytes (Bld) [#/Vol] 0.8 103/mcL Normal 0.1 - 1.4 10^3/mcL AO Workflow SS Monocytes/100 WBC (Bld) 10.4 % Normal 2.0 - 13.0 % AO Workflow SS Neutrophils (Bld) [#/Vol] 4.2 103/mcL Normal 2. 3 - 8.1 10^3/mcL AO Workflow SS Neutrophils/100 WBC (Bld) 56.3 % Normal 50 .0 - 75.0 % AO Workflow SS Parathyrin.intact [Mass/Vol] 44.8 pg/mL Normal 18.5 - 88.0 pg/mL AH ADM SS Platelet mean volume (Bld) [Entitic vol] 7.4 fL Normal 6.4 - 10.5 fL AO Workflow SS Platelets (Bld) [#/Vol] 289 103/mcL Normal 150 - 450 10^3/mcL AO Workflow SS Potassium [Moles/Vol] 4.2 mmol/L Normal 3.5 - 5.1 mmol/L AO ADM SS Prolactin [Mass/Vol] 15.0 ng/mL Normal 2.0 - 1 8.0 ng/mL ADM SS Protein [Mass/Vol] 7.9 G/dL Normal 6.4 - 8.2 G/dL AO ADM SS RBC (Bld) [#/Vol] 5.75 106/mcL Normal 4.50 - 6.0 0 10^6/mcL AO Workflow SS Sodium [Moles/Vol] 136 mmol/L Normal 136 - 145 mmol/L AO ADM SS TSH Qn 0.38 m[IU]/L Normal 0.36 - 3.74 mcIU/mL AO ADM SS Urea nitrogen [Mass/Vol] 17 mg/dL Normal 7 - 18 mg/dL AO ADM SS Urea nitrogen/Creatinine [Mass ratio] 15 ratio Normal 7 - 27 ratio AO ADM SS WBC (Bld) [#/Vol] 7.4 103/mcL Normal 4.5 - 10.8 10^3/mcL AO Workflow SS LABORATORYOrdered By: Meghann Argueta on 04-20-2024 Calcium Ionized 1.25 mmol/L Normal 1.12 - 1.32 mmol/L AO Rapid Comm SS Cholesterol [Mass/Vol] 159 mg/dL Normal 0 - 2 00 mg/dL AO ADM SS Comment on above: Interpretive Data: C holesterol Reference Interval: Less than 200 Desirable 200-239 Borderline high risk 240 and above High risk Cholesterol in HDL [Mass/Vol] 36 mg/dL Low 40 - 60 mg/dL AO ADM SS Cholesterol in LDL [Mass/Vol] 89 mg/dL Normal 0 - 130 mg/dL AO ADM SS Triglyceride [Mass/Vol] 169 mg/dL High 0 - 150 mg/dL AO ADM SS Comment on above: Interpretive Data: T riglyceride Reference Interval: Less than 150 Normal 150-199 Borderline high risk 200-499 High risk 500 or higher Very high risk LIPIDon 04-20-2024 Cholesterol [Mass/Vol] 159 mg/dL Normal 0-200 [facility] Comment on above: Result Comment: Chol esterol Reference Interval: Less than 200 Desirable 200-239 Borderline high risk 240 and above High risk Performed By: #### C AUR #### [address] [address] #### CRUR #### [facility] [address] [place], [place] [address] Cholesterol in HDL [Mass/Vol] 36 mg/dL Low 40-60 [facility] Comment on above: Performed By: #### C AUR #### [address] [address] #### CRUR #### [address] [address] Cholesterol in LDL [Mass/Vol] 89 mg/dL Normal 0-130 [facility] Comment on above: Performed By: #### C AUR #### [place] [address] #### CRUR #### [address] [address] Triglyceride [Mass/Vol] 169 mg/dL High 0-150 A [facility] Comment on above: Result Comment: Trig lyceride Reference Interval: Less than 150 Normal 150-199 Borderline high risk 200-499 High risk 500 or higher Very high risk Performed By: #### C AUR #### [place] [address] #### CRUR #### [place] [address] PROLon 04-20-2024 Prolactin 15.0 ng/mL Normal 2.0-18.0 [facility] Comment on above: Performed By: #### C AUR #### [place] [address] #### CRUR #### [place] [address] PTHon 04-20-2024 PTH, Intact 44.8 pg/mL Normal 18.5-88.0 [facility] Comment on above: Performed By: #### C AUR #### [place] [address] #### CRUR #### [place] [address] TSHon 04-20-2024 TSH Qn 0.38 m[IU]/L Normal 0.36-3.74 [facility] Comment on above: Performed By: #### V IDH, ANEU, LIPID, [id number], FT3, FT4, GFR, ADIFF, [id number], CAION, TSH, CBC, CMP #### [place] [address] #### PROL, PTH #### [address] [place], [place] [address] VIDHon 04-20-2024 Vit. D 25-Hydroxy 31.3 ng/mL Normal [facility] Comment on above: Result Comment: Inte rpretive Values Based on Total 25(OH) Vitamin D: Deficient <20 ng/mL Insufficient 20 - <30 ng/mL Sufficient 30-100 ng/mL Performed By: #### C AUR #### [address] [address] #### CRUR #### [facility] [address] [place], [place] [address] Abd Aortic/IVC Duplex scanon 04-13-2024 Abd Aortic/IVC Duplex scan [facility] [address] [place] [address] Abd Aortic/IVC Duplex scan 04/13/24 0946 MR#: [id number] Acct: [id number] Name: CORRIE QUEEN Rep #: [id number] : 1960 63 From: Ryan Ceja MD Attending Dr: EDMUND Jovel Status: REG CLI Ordering Dr: Dolly Clarke Date: 04/13/24 Location: CVS Sex: M C Admitted: Reason For Study Reason For Study: HX LT CIV STENT / DVT Inferior Vena Cava Proximal inferior vena cava measures 1.00 x 1.21 cm. in the cross-sectional axis. Proximal inferior vena cava measures 0.88 cm. in the longitudinal axis. Mid inferior vena cava measures 1.42 x 1.51 cm. in the cross- sectional axis. Mid inferior vena cava measures 1.24 cm. in the longitudinal axis. Distal inferior vena cava measures 1.38 x 1.79 cm. in the cross-sectional axis. Distal inferior vena cava measures 1.34 cm. in the longitudinal axis. The inferior vena cava has spontaneous, phasic flow throughout. Left Common Iliac Vein Left common iliac vein measures 1.32 x 1.28 cm. in the cross-sectional axis. Left common iliac vein measures 1.42 cm. in the longitudinal axis. Stent Noted. Unable to visualize flow in CIV and EIV. Right Common Iliac Vein Right common iliac vein measures 1.47 x 1.69 cm. in the cross-sectional axis. Right common iliac vein measures 1.41 cm. in the longitudinal axis. The right common iliac vein has spontaneous, phasic flow throughout. Procedure Aorta IVC Iliac vasculature or bypass grafts 12481. The exam was diagnostic. Exam performed in department. Compare to study on 07/12/2023. VL/Abd Aortic/IVC Duplex scan Interpretation Summary Inferior vena cava and right iliac vein patent with normal venous flow pattern. Left iliac vein stent occluded. Ordering Physician: Dolly Clarke Referring Physician: Sorin Bailey M.D. Performed By: Yainck Dixon, T 04/13/24 1252 Date Ryan Ceja MD CC: EDMUND Jovel; Dr. Justice Bailey DO Date Dictated: 04/13/24 0946 Date Transcribed: 04/13/24 1252 Profile Saw Operator: Signed Normal [facility] Venous Duplex US, Unilateral on 04-13-2024 Venous Duplex US, Unilateral [facility] [address] [place] [address] Venous Duplex US, Unilateral 04/13/24 1006 MR#: [id number] Acct: [id number] Name: CORRIE QUEEN Rep #: [id number] : 1960 63 From: Ryan Ceja MD Attending Dr: EDMUND Jovel Status: REG CLI Ordering Dr: Dolly Clarke Date: 04/13/24 Location: CVS Sex: M C Admitted: Reason For Study Reason For Study: HX LLE DVT RIGHT LEFT CFV is compressible, spontaneous, phasic, competent GSV is normal. and demonstrates normal augmentation. Flow within GSV / ASV at SFJ is noted in pulsed wave Procedure and color doppler. This is a venous duplex using B-mode, color flow and CFV is dilated and NONCOMPRESSIBLE. Unable to spectral Doppler. visualize flow with pulsed wave and color doppler. Exam performed in department. Stent noted in Lt CFV. The exam was diagnostic. FV is PARTIALLY COMPRESSIBLE with intraluminal echoes Compare to study 07/12/2023. noted throughout. Diminished flows noted in pulsed wave and color doppler. POP V is PARTIALLY COMPRESSIBLE with intraluminal echoes noted throughout. Flow appears diminished with normal augmentation. T/P Trunk is compressible. PTV is compressible. Katie V is compressible. Varicose veins / ASV noted throughout Lt lateral calf appear compressible. VL/Venous Duplex US, Unilateral Interpretation Summary Chronic deep vein thrombosis noted in the left common femoral vein, femoral vein, popliteal vein. Ordering Physician: Dolly Clarke Referring Physician: Sorin Bailey M.D. Performed By: Yanick Dixon, T 04/13/24 1250 Date Ryan Ceja MD CC: EDMUND Jovel; Dr. Justice Bailey DO Date Dictated: 04/13/24 1006 Date Transcribed: 04/13/24 1250 Profile Saw Operator: Signed [place] [facility] Internal Medicine Office Vis gissell 03-31-2024 Internal Medicine Office Visit [facility] [address] [place] [address] [place] [address] OFFICE VISIT Date of Service: 03/31/24 MR#: [id number] Acct: [id number] Name: CORRIE QUENE #: [id number] : 1960 Provider: Dr. 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 Management Required: No Accompanied by: Self Is patient in pain?: No Allergies meperidine (From Demerol) Adverse Reaction (Intermediate, Verified 03/31/24 10:19) Nausea/Vom/Diarrhea Medications ???Medication ???Instructions ???Recorded ???Confirmed ???Type niacin 1,000 mg tablet,extended 1,000 mg PO QHS 01/30/23 03/31/24 History release rosuvastatin 10 mg tablet (Crestor) 10 mg PO DAILY 01/30/23 5 History aspirin 81 mg tablet,delayed 81 [...] 5 mg PO DAILY #90 tabs 12/03/23 Rx Have you fallen in the past [...] none HPI HPI Chief Complaint: establishing Details: CORRIE QUEEN, is a 63 M who presents [...] or ti (more content not included)... Normal [facility] MR/BMS.Beatriz 03-18-2024 MR/BMS.BVS [facility] Vascular Surgery [address] [place] [address] OFFICE VISIT Date of Service: 03/18/24 MR#: [id number] Acct: [id number] Name: CORRIE QUEEN Rep #: [id number] : 1960 Provider: EDMUND Jovel Age/Sex: 63/M Location: [facility] Status: Signed Intake Vital Signs 02/25/24 10:24 [...] you participate in: none HPI HPI HPI: CORRIE QUEEN, is a 63 M who presents to the office today with complaint of increased achiness/tightness through his L ankle which has been progressive over the last few months. Recall that he developed extensive LLE DVT diagnosed in September 2022 initially treated with anticoagulation with no improvement in his symptoms after which he underwent attempted percutaneous thrombectomy and stenting at [facility] which was not successful. He then [...] having stasis (more content not included)... Normal [facility] Urgent Care Visit Reporton 1 Urgent Care Visit Report [facility] [address] [place] [address] OFFICE VISIT Date of Service: 02/25/24 MR#: [id number] Acct: [id number] Name: CORRIE QUEEN Rep #: [id number] : 1960 Provider: EDMUND Miguel Age/Sex: 63/M Location: [facility] Status: Signed Intake Vital Signs 12/23/23 09:55 [...] one on the right side. [facility] Medical History (Updated 02/25/24 @ 11:13 by [...] you participate in: none HPI HPI Details: CORRIE QUEEN, is a 63 M who presents [...] fever, chills, sweats, lightheadedness/dizzi ness, nausea/vomiting. No lcle-fng-udplhxl products taken to assist. No other associated symptoms and no other alleviating or aggravating factors. ROS Const Constitutional: No other (As above) Exam Const General: cooperative, healthy appearing and no acute distress Orientation: alert and awake [facility] Head: normal to inspection Ears: [...] Procedure pe (more content not included)... Normal [facility] TFTESTon 01-09-2024 Free Testost Direct 1.5 pg/mL Low 6.6-18.1 [facility] Comment on above: Result Comment: Perf ormed At: [facility] [place] [address] [place], [place] [id number] Willi Adams MD Ph:[phone] Performed At: [facility] [address] [id number] Pau Carranza PhD Ph:[phone] Performed By: #### V IDH, ANEU, LIPID, [id number], FT3, FT4, GFR, ADIFF, [id number], CAION, TSH, CBC, CMP #### [place] [address] #### PROL, PTH #### [place] [address] Testosterone Lvl 111 ng/dL Low 264-916 [facility] Comment on above: Result Comment: Adul t male reference interval is based on a population of healthy nonobese males (BMI <30) between 19 and 39 years old. erica Joseph.al. JCEM 2017,102;5639-7793. PMID: [id number]. Performed By: #### V IDH, ANEU, LIPID, [id number], FT3, FT4, GFR, ADIFF, [id number], CAION, TSH, CBC, CMP #### [place] [address] #### PROL, PTH #### [place] [address] .Auto Diffon 01-03-2024 Basophil, Absolute 0.1 10 3/mcL Normal 0.0-0.2 [facility] Comment on above: Performed By: #### V IDH, ANEU, LIPID, [id number], FT3, FT4, GFR, ADIFF, [id number], CAION, TSH, CBC, CMP #### [address] [address] #### PROL, PTH #### [address] [address] Basophils/100 WBC (Bld) 1.0 % Normal 0.0-2.5 [facility] Comment on above: Performed By: #### V IDH, ANEU, LIPID, [id number], FT3, FT4, GFR, ADIFF, [id number], CAION, TSH, CBC, CMP #### [place] [address] #### PROL, PTH #### [address] [address] Eosinophil, Absolute 0.2 10 3/mcL Normal 0.0-0.7 [facility] Comment on above: Performed By: #### V IDH, ANEU, LIPID, [id number], FT3, FT4, GFR, ADIFF, [id number], CAION, TSH, CBC, CMP #### [place] [address] #### PROL, PTH #### [address] [address] Eosinophils/100 WBC (Bld) 2.6 % Normal 0.0-7.0 [facility] Comment on above: Performed By: #### V IDH, ANEU, LIPID, [id number], FT3, FT4, GFR, ADIFF, [id number], CAION, TSH, CBC, CMP #### [place] [address] #### PROL, PTH #### [address] [address] Lymphocyte, Absolute 1.6 10 3/mcL Normal 0.9-4.3 [facility] Comment on above: Performed By: #### V IDH, ANEU, LIPID, [id number], FT3, FT4, GFR, ADIFF, [id number], CAION, TSH, CBC, CMP #### [place] [address] #### PROL, PTH #### [address] [address] Lymphocytes/100 WBC (Bld) 21.6 % Normal 20.0-40.0 [facility] Comment on above: Performed By: #### V IDH, ANEU, LIPID, [id number], FT3, FT4, GFR, ADIFF, [id number], CAION, TSH, CBC, CMP #### [address] [address] #### PROL, PTH #### [address] [address] Monocyte, Absolute 0.5 10 3/mcL Normal 0.1-1.4 [facility] Comment on above: Performed By: #### V IDH, ANEU, LIPID, [id number], FT3, FT4, GFR, ADIFF, [id number], CAION, TSH, CBC, CMP #### [address] [address] #### PROL, PTH #### [address] [address] Monocytes/100 WBC (Bld) 7.3 % Normal 2.0-13.0 [facility] Comment on above: Performed By: #### V IDH, ANEU, LIPID, [id number], FT3, FT4, GFR, ADIFF, [id number], CAION, TSH, CBC, CMP #### [address] [address] #### PROL, PTH #### [address] [address] Neutrophils/100 WBC (Bld) 67.5 % Normal 50.0-75.0 [facility] Comment on above: Performed By: #### V IDH, ANEU, LIPID, [id number], FT3, FT4, GFR, ADIFF, [id number], CAION, TSH, CBC, CMP #### [address] [address] #### PROL, PTH #### [address] [address] .GFRon 01-03-2024 GFR 83 ml/min/1.73sqm Normal [facility] Comment on above: Result Comment: GFR Population [...] Performed By: #### V IDH, ANEU, LIPID, [id number], FT3, FT4, GFR, ADIFF, [id number], CAION, TSH, CBC, CMP #### [address] [address] #### PROL, PTH #### [place] [address] GFR Non- 69 ml/min/1.73sqm Normal [facility] Comment on above: Result Comment: GFR Population [...] Performed By: #### V IDH, ANEU, LIPID, [id number], FT3, FT4, GFR, ADIFF, [id number], CAION, TSH, CBC, CMP #### [address] [address] #### PROL, PTH #### [address] [address] .NEUABSon 11-08-2024 Neutrophil, Absolute 4.9 10 3/mcL Normal 2.3-8.1 [facility] Comment on above: Performed By: #### V IDH, ANEU, LIPID, [id number], FT3, FT4, GFR, ADIFF, [id number], CAION, TSH, CBC, CMP #### [address] [address] #### PROL, PTH #### [address] [address] A1Con 01-03-2024 Glucose [Mass/Vol] 111 mg/dL Normal [facility] Comment on above: Result Comment: Ruthann mated Average Glucose calculated by equation ((28.7xA1C)-46.7) Estimated average glucose (eAG) is a calculated value from Hemoglobin A1C and is treasury representative of the average blood glucose level in the last 2-3 month period. Normal range: less than 114 mg/dL Performed By: #### V IDH, ANEU, LIPID, [id number], FT3, FT4, GFR, ADIFF, [id number], CAION, TSH, CBC, CMP #### [address] [address] #### PROL, PTH #### [place] [address] HbA1c (Bld) [Mass fraction] 5.5 % Normal 4.3-6.4 [facility] Comment on above: Performed By: #### V IDH, ANEU, LIPID, [id number], FT3, FT4, GFR, ADIFF, [id number], CAION, TSH, CBC, CMP #### [address] [address] #### PROL, PTH #### [place] [address] CAIONon 01-03-2024 Calcium Ionized 1.29 mmol/L Normal 1.12-1.32 [facility] Comment on above: Performed By: #### C AUR #### [place] [address] #### CRUR #### [address] [address] CAURon 01-03-2024 Calcium [Mass/Vol] 14.0 mg/dL Normal [facility] Comment on above: Performed By: #### C AUR #### [place] [address] #### CRUR #### [place] [address] CBCon 01-03-2024 Erythrocyte distribution width (RBC) [Ratio] 15.2 % Normal 11.5-15.5 [facility] Comment on above: Performed By: #### V IDH, ANEU, LIPID, [id number], FT3, FT4, GFR, ADIFF, [id number], CAION, TSH, CBC, CMP #### [place] [address] #### PROL, PTH #### [place] [address] Hematocrit (Bld) [Volume fraction] 49.8 % Normal 40.0-52.0 [facility] Comment on above: Performed By: #### V IDH, ANEU, LIPID, [id number], FT3, FT4, GFR, ADIFF, [id number], CAION, TSH, CBC, CMP #### [place] [address] #### PROL, PTH #### [place] [address] Hgb 16.6 G/dL Normal 13.0-17.5 [facility] Comment on above: Performed By: #### V IDH, ANEU, LIPID, [id number], FT3, FT4, GFR, ADIFF, [id number], CAION, TSH, CBC, CMP #### [place] [address] #### PROL, PTH #### [place] [address] MCH (RBC) [Entitic mass] 29.8 pg Normal 27.0-33.0 [facility] Comment on above: Performed By: #### V IDH, ANEU, LIPID, [id number], FT3, FT4, GFR, ADIFF, [id number], CAION, TSH, CBC, CMP #### [address] [address] #### PROL, PTH #### [address] [address] MCHC 33.3 G/dL Normal 32.0-36.0 [facility] Comment on above: Performed By: #### V IDH, ANEU, LIPID, [id number], FT3, FT4, GFR, ADIFF, [id number], CAION, TSH, CBC, CMP #### [address] [address] #### PROL, PTH #### [place] [address] MCV (RBC) [Entitic vol] 89.3 fL Normal 81.0-100.0 [facility] Comment on above: Performed By: #### V IDH, ANEU, LIPID, [id number], FT3, FT4, GFR, ADIFF, [id number], CAION, TSH, CBC, CMP #### [address] [address] #### PROL, PTH #### [address] [address] Platelet 284 10 3/mcL Normal 150-450 [facility] Comment on above: Performed By: #### V IDH, ANEU, LIPID, [id number], FT3, FT4, GFR, ADIFF, [id number], CAION, TSH, CBC, CMP #### [address] [address] #### PROL, PTH #### [address] [address] Platelet mean volume (Bld) [Entitic vol] 7.3 fL Normal 6.4-10.5 [facility] Comment on above: Performed By: #### V IDH, ANEU, LIPID, [id number], FT3, FT4, GFR, ADIFF, [id number], CAION, TSH, CBC, CMP #### [address] [address] #### PROL, PTH #### [place] [address] RBC 5.58 10 6/mcL Normal 4.50-6.00 [facility] Comment on above: Performed By: #### V IDH, ANEU, LIPID, [id number], FT3, FT4, GFR, ADIFF, [id number], CAION, TSH, CBC, CMP #### [address] [address] #### PROL, PTH #### [place] [address] WBC 7.3 10 3/mcL Normal 4.5-10.8 [facility] Comment on above: Performed By: #### V IDH, ANEU, LIPID, [id number], FT3, FT4, GFR, ADIFF, [id number], CAION, TSH, CBC, CMP #### [place] [address] #### PROL, PTH #### [place] [address] CMPon 01-03-2024 Albumin Level 4.2 G/dL Normal 3.4-4.8 [facility] Comment on above: Performed By: #### V IDH, ANEU, LIPID, [id number], FT3, FT4, GFR, ADIFF, [id number], CAION, TSH, CBC, CMP #### [address] [address] #### PROL, PTH #### [place] [address] Albumin/Globulin [Mass ratio] 1.2 {ratio} Normal 1.1-2.5 [facility] Comment on above: Performed By: #### V IDH, ANEU, LIPID, [id number], FT3, FT4, GFR, ADIFF, [id number], CAION, TSH, CBC, CMP #### [place] [address] #### PROL, PTH #### [place] [address] ALP [Catalytic activity/Vol] 103 U/L Normal 40-135 [facility] Comment on above: Performed By: #### V IDH, ANEU, LIPID, [id number], FT3, FT4, GFR, ADIFF, [id number], CAION, TSH, CBC, CMP #### [address] [address] #### PROL, PTH #### [place] [address] ALT [Catalytic activity/Vol] 39 U/L Normal 16-63 [facility] Comment on above: Performed By: #### V IDH, ANEU, LIPID, [id number], FT3, FT4, GFR, ADIFF, [id number], CAION, TSH, CBC, CMP #### [place] [address] #### PROL, PTH #### [place] [address] AST [Catalytic activity/Vol] 23 U/L Normal 10-40 [facility] Comment on above: Performed By: #### V IDH, ANEU, LIPID, [id number], FT3, FT4, GFR, ADIFF, [id number], CAION, TSH, CBC, CMP #### [place] [address] #### PROL, PTH #### [place] [address] Bili Total 0.6 mg/dL Normal 0.2-1.0 [facility] Comment on above: Result Comment: Use of this assay is not recommended for patients undergoing treatment with eltrombopag due to the potential for falsely elevated results. Performed By: #### V IDH, ANEU, LIPID, [id number], FT3, FT4, GFR, ADIFF, [id number], CAION, TSH, CBC, CMP #### [place] [address] #### PROL, PTH #### [place] [address] BUN/Creatinine Ratio 12 ratio Normal 7-27 [facility] Comment on above: Performed By: #### V IDH, ANEU, LIPID, [id number], FT3, FT4, GFR, ADIFF, [id number], CAION, TSH, CBC, CMP #### [address] [address] #### PROL, PTH #### [address] [address] Calcium [Mass/Vol] 10.4 mg/dL High 8.4-10.2 [facility] Comment on above: Performed By: #### V IDH, ANEU, LIPID, [id number], FT3, FT4, GFR, ADIFF, 985131, CAION, TSH, CBC, CMP #### [address] [address] #### PROL, PTH #### [address] [address] Chloride [Moles/Vol] 105 mmol/L Normal 98-107 [facility] Comment on above: Performed By: #### V IDH, ANEU, LIPID, [id number], FT3, FT4, GFR, ADIFF, [id number], CAION, TSH, CBC, CMP #### [address] [address] #### PROL, PTH #### [address] [address] CO2 [Moles/Vol] 29 mmol/L Normal 23-31 [facility] Comment on above: Performed By: #### V IDH, ANEU, LIPID, [id number], FT3, FT4, GFR, ADIFF, [id number], CAION, TSH, CBC, CMP #### [address] [address] #### PROL, PTH #### [address] [address] Creatinine [Mass/Vol] 1.09 mg/dL Normal 0.70-1.30 [facility] Comment on above: Result Comment: Test ing performed on Siemens Dimension EXL analyzer using a modified kinetic Jody technique. Performed By: #### V IDH, ANEU, LIPID, [id number], FT3, FT4, GFR, ADIFF, 323449, CAION, TSH, CBC, CMP #### [address] [address] #### PROL, PTH #### [address] [address] Electrolyte Balance 7.0 mEq/L Normal 4.0-15.0 [facility] Comment on above: Performed By: #### V IDH, ANEU, LIPID, [id number], FT3, FT4, GFR, ADIFF, [id number], CAION, TSH, CBC, CMP #### [address] [address] #### PROL, PTH #### [address] [address] Globulin 3.5 G/dL Normal [facility] Comment on above: Performed By: #### V IDH, ANEU, LIPID, [id number], FT3, FT4, GFR, ADIFF, [id number], CAION, TSH, CBC, CMP #### [place] [address] #### PROL, PTH #### [place] [address] Glucose [Mass/Vol] 115 mg/dL Normal 80-115 [facility] Comment on above: Performed By: #### V IDH, ANEU, LIPID, [id number], FT3, FT4, GFR, ADIFF, [id number], CAION, TSH, CBC, CMP #### [place] [address] #### PROL, PTH #### [address] [address] Potassium [Moles/Vol] 4.7 mmol/L Normal 3.5-5.1 [facility] Comment on above: Performed By: #### V IDH, ANEU, LIPID, [id number], FT3, FT4, GFR, ADIFF, [id number], CAION, TSH, CBC, CMP #### [place] [address] #### PROL, PTH #### [address] [address] Sodium [Moles/Vol] 141 mmol/L Normal 136-145 [facility] Comment on above: Performed By: #### V IDH, ANEU, LIPID, [id number], FT3, FT4, GFR, ADIFF, 112098, CAION, TSH, CBC, CMP #### [address] [address] #### PROL, PTH #### [place] [address] Total Protein 7.7 G/dL Normal 6.4-8.2 [facility] Comment on above: Performed By: #### V IDH, ANEU, LIPID, [id number], FT3, FT4, GFR, ADIFF, [id number], CAION, TSH, CBC, CMP #### [address] [address] #### PROL, PTH #### [place] [address] Urea nitrogen [Mass/Vol] 13 mg/dL Normal 7-18 [facility] Comment on above: Performed By: #### V IDH, ANEU, LIPID, [id number], FT3, FT4, GFR, ADIFF, [id number], CAION, TSH, CBC, CMP #### [address] [address] #### PROL, PTH #### [address] [address] CRURon 01-03-2024 U Creatinine 152.1 mg/dL Normal 39.0-259.0 [facility] Comment on above: Performed By: #### C AUR #### [place] [address] #### CRUR #### [address] [address] E2on 01-03-2024 Estradiol Level 24.43 pg/mL Normal 0.00-39.80 [facility] Comment on above: Result Comment: No te - New Reference Range in effect 19 Adult Female E2 Reference Ranges: Follicular phase 19.5 - 144.2 pg/mL Midcycle 63.9 - 356.7 pg/mL Luteal phase 55.8 - 214.2 pg/mL Post menopausal 0 - 33.2 pg/mL Performed By: #### V IDH, ANEU, LIPID, [id number], FT3, FT4, GFR, ADIFF, [id number], CAION, TSH, CBC, CMP #### [address] [address] #### PROL, PTH #### [place] [address] FT3on 01-03-2024 Free T3 [Mass/Vol] 2.59 pg/mL Normal 2.30-4.00 [facility] Comment on above: Performed By: #### V IDH, ANEU, LIPID, [id number], FT3, FT4, GFR, ADIFF, [id number], CAION, TSH, CBC, CMP #### [place] [address] #### PROL, PTH #### [place] [address] FT4on 01-03-2024 Free T4 [Mass/Vol] 0.91 ng/dL Normal 0.76-1.46 [facility] Comment on above: Performed By: #### V IDH, ANEU, LIPID, [id number], FT3, FT4, GFR, ADIFF, [id number], CAION, TSH, CBC, CMP #### [place] [address] #### PROL, PTH #### [place] [address] LABORATORYOrdered By: Johan Duff on 01-03-2024 Calcium (U) [Mass/Vol] 14.0 mg/dL Invalid Interpretation Code AH ADM SS LABORATORYOrdered By: [employer] on 01-03-2024 Creatinine (U) [Mass/Vol] 152.1 [...] calculated value from Hemoglobin A1C and is treasury representative of the average blood glucose level [...] ormal Reference Ranges for Females: Female Premenopause Ogb75-971.01-47.94 ng/dL Female Postmenopause Ldt42-05<7.00-45.62 ng/dL Thyroglobulin Ab IA Qn 22 unit/mL Normal 15 - 60 unit/mL AH ADM SS Comment on above: Interpretive Data: * *Note - New Reference Range in effect 19 TPO Ab IA Qn 545 unit/mL High 0 - 60 unit/mL AH ADM SS Comment on above: Interpretive [...] 01-03-2024 Cholesterol [Mass/Vol] 234 mg/dL High 0-200 [facility] Comment on above: Result Comment: Chol esterol Reference Interval: Less than 200 Desirable 200-239 Borderline high risk 240 and above High risk Performed By: #### V IDH, ANEU, LIPID, [id number], FT3, FT4, GFR, ADIFF, [id number], CAION, TSH, CBC, CMP #### [address] [address] #### PROL, PTH #### [address] [address] Cholesterol in HDL [Mass/Vol] 37 mg/dL Low 40-60 [facility] Comment on above: Performed By: #### V IDH, ANEU, LIPID, [id number], FT3, FT4, GFR, ADIFF, [id number], CAION, TSH, CBC, CMP #### [address] [address] #### PROL, PTH #### [address] [address] Cholesterol in LDL [Mass/Vol] 163 mg/dL High 0-130 [facility] Comment on above: Performed By: #### V IDH, ANEU, LIPID, [id number], FT3, FT4, GFR, ADIFF, [id number], CAION, TSH, CBC, CMP #### [address] [address] #### PROL, PTH #### [place] [address] Triglyceride [Mass/Vol] 169 mg/dL High 0-150 [facility] Comment on above: Result Comment: Trig lyceride Reference Interval: Less than 150 Normal 150-199 Borderline high risk 200-499 High risk 500 or higher Very high risk Performed By: #### V IDH, ANEU, LIPID, [id number], FT3, FT4, GFR, ADIFF, [id number], CAION, TSH, CBC, CMP #### [place] [address] #### PROL, PTH #### [place] [address] MGon 01-03-2024 Magnesium [Mass/Vol] 2.1 mg/dL Normal 1.8-2.4 [facility] Comment on above: Performed By: #### V IDH, ANEU, LIPID, [id number], FT3, FT4, GFR, ADIFF, [id number], CAION, TSH, CBC, CMP #### [address] [address] #### PROL, PTH #### [place] [address] PHOSon 01-03-2024 Phosphate [Mass/Vol] 3.1 mg/dL Normal 2.3-4.1 [facility] Comment on above: Performed By: #### V IDH, ANEU, LIPID, [id number], FT3, FT4, GFR, ADIFF, [id number], CAION, TSH, CBC, CMP #### [address] [address] #### PROL, PTH #### [address] [address] PROLon 01-03-2024 Prolactin 13.6 ng/mL Normal 2.0-18.0 [facility] Comment on above: Performed By: #### V IDH, ANEU, LIPID, [id number], FT3, FT4, GFR, ADIFF, [id number], CAION, TSH, CBC, CMP #### [address] [address] #### PROL, PTH #### [address] [address] PSAon 01-03-2024 Prostate Specific Antigen 0.62 ng/mL Normal 0.00-4.00 [facility] Comment on above: Performed By: #### V IDH, ANEU, LIPID, [id number], FT3, FT4, GFR, ADIFF, [id number], CAION, TSH, CBC, CMP #### [address] [address] #### PROL, PTH #### [address] [address] PTHon 01-03-2024 PTH, Intact 50.7 pg/mL Normal 18.5-88.0 [facility] Comment on above: Performed By: #### V IDH, ANEU, LIPID, [id number], FT3, FT4, GFR, ADIFF, [id number], CAION, TSH, CBC, CMP #### [address] [address] #### PROL, PTH #### [address] [address] TESTOon 01-03-2024 Testosterone Lvl 106.55 ng/dL Normal 86.98-780.1 0 [facility] Comment on above: Result Comment: Norm al Reference Ranges for Females: Female Premenopause Age 21-60 9.01-47.94 ng/dL Female Postmenopause Age 45-89 <7.00-45.62 ng/dL Performed By: #### V IDH, ANEU, LIPID, [id number], FT3, FT4, GFR, ADIFF, [id number], CAION, TSH, CBC, CMP #### [address] [address] #### PROL, PTH #### [place] [address] THYABon 01-03-2024 anti-Thyroid Peroxidase 545 units/ml High 0-60 [facility] Comment on above: Result Comment: No te - New Reference Range in effect 19 Performed By: #### V IDH, ANEU, LIPID, [id number], FT3, FT4, GFR, ADIFF, [id number], CAION, TSH, CBC, CMP #### [address] [address] #### PROL, PTH #### [place] [address] Thyroglobulin Ab 22 units/ml Normal 15-60 [facility] Comment on above: Result Comment: No te - New Reference Range in effect 19 Performed By: #### V IDH, ANEU, LIPID, [id number], FT3, FT4, GFR, ADIFF, [id number], CAION, TSH, CBC, CMP #### [address] [address] #### PROL, PTH #### [place] [address] TSHon 01-03-2024 TSH Qn 0.63 m[IU]/L Normal 0.36-3.74 [facility] Comment on above: Performed By: #### V IDH, ANEU, LIPID, [id number], FT3, FT4, GFR, ADIFF, [id number], CAION, TSH, CBC, CMP #### [address] [address] #### PROL, PTH #### [place] [address] VIDHon 01-03-2024 Vit. D 25-Hydroxy 32.8 ng/mL Normal [facility] Comment on above: Result Comment: Inte rpretive Values Based on Total 25(OH) Vitamin D: Deficient <20 ng/mL Insufficient 20 - <30 ng/mL Sufficient 30-100 ng/mL Performed By: #### V IDH, ANEU, LIPID, [id number], FT3, FT4, GFR, ADIFF, [id number], CAION, TSH, CBC, CMP #### [facility] [address] [place], [place] [address] #### PROL, PTH #### [facility] [address] [place] [address] Internal Medicine Office Vis ito 12-23-2023 Internal Medicine Office Visit [facility] [address] [place] [address] [place] [address] OFFICE VISIT Date of Service: 12/23/23 MR#: [id number] Acct: [id number] Name: CORRIE QUEEN Rep #: [id number] : 1960 Provider: RUBI romano Age/Sex: 63/M Location: [facility] Status: Signed Intake Vital Signs 10/15/23 09:21 [...] LEFT EYE IRRITATION Chief Complaint: back pain [employer] Of [employer] Required: No Is patient in pain?: No [...] light sensitivity or visual disturbances. [facility] Medical History Kidney pain Pituitary abnormality Liver [...] HPI HPI Chief Complaint: back pain Details: CORRIE QUEEN, is a 63 M who presents [...] at rest, ch (more content not included)... [facility] 36on 11-25-2023 36 Thanks so much hemant! Normal [facility] 36 We received a fax stating that the patients testosterone needs a PA , could you please assist? Normal [facility] Internal Medicine Office Vis iton 10-15-2023 Internal Medicine Office Visit [facility] [place] [address] [place] [address] OFFICE VISIT Date of Service: 10/15/23 MR#: [id number] Acct: [id number] Name: CORRIE QUEEN Rep #: [id number] : 1960 Provider: Dr. Justice Issa Br own, DO Age/Sex: 63/M Location: [facility] Status: Signed Intake Vital Signs 10/10/23 09:29 [...] Reasons: Flank pain Chief Complaint: back pain [employer] Of [employer] Required: No Accompanied by: Self Is patient [...] PO DAILY #20 tabs 10/15/23 10/15/23 Rx PFSH Medical History Kidney pain Pituitary [...] HPI HPI Chief Complaint: back pain Details: CORRIE QUEEN, is a 63 M who presents [...] intolerance, increas (more content not included)... Normal [facility] Internal Medicine Office Vis itosebastien 10-10-2023 Internal Medicine Office Visit [facility] [address] [place] [address] [place] [address] OFFICE VISIT Date of Service: 10/10/23 MR#: [id number] Acct: [id number] Name: CORRIE QUEEN Rep #: [id number] : 1960 Provider: Dr. 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 Normal [facility] Internal Medicine Office Vis iton 09-20-2023 Internal Medicine Office Visit [facility] [address] [place] [address] [place] [address] OFFICE VISIT Date of Service: 09/20/23 MR#: [id number] Acct: [id number] Name: CORRIE QUEEN Rep #: [id number] : 1960 Provider: RUBI romano Age/Sex: 63/M Location: [facility] Status: Signed Intake Vital Signs 03/21/23 08:44 [...] HPI Chief Complaint: 6 M FU Details: CORRIE QUEEN, is a 63 M who presents [...] pituitary tumor and follows with endocrinology at [facility]. He is treated with cabergoline. He does report that his travel assistant will be leaving her current practice and request a referral to a local travel assistant. He is compliant with his medications. He [...] tinnitus, nasal (more content not included)... Normal [facility] 36on 08-01-2023 36 Message released to patient as written. Patient's further questions if applicable: Patient voiced understanding. Stated he will pick his medication up tomorrow. Please have clinical team call patient to schedule to have testosterone levels checked. Were all questions from office addressed or relayed to the patient from encounter: Yes Normal [facility] 36 Tried calling elvia molina and left a voice message for call back. Results of recent labs show normal prolactin, thyroid functions-patient is to continue current dose of cabergoline and levothyroxine. Testosterone remains low-I have sent prescription for testosterone gel to his pharmacy. Patient is to have testosterone levels checked 2 months after starting testosterone treatment Normal [facility] Office Visiton 07-31-2023 Follow-up visit [id number] [place] Queen 1960 M Date Provider Department Center 07/31/2023 [id number] APPUSW*[facility] None Family History Adopted: Yes Problem Relation Age of Onset No Known Problems Father Cancer Mother Comments: lung Family Status - Relation Status Age at Father Mother Level of Service:77[address] MT OFFICE/OUTPATIENT ESTABLISHED MOD MDM 30 MIN Reason for Visit and Comments: Follow-up [599346] - Macroprolactinoma Hypothyroidism [143] Normal [facility] Progress Noteon 07-31-2023 Progress Note [facility] [address] [facility] [address] [facility] [address] Dept: [phone] Dept Loc: [phone] Visit type: Established Reason for Visit: Follow-up [...] Subjective HPI PCP is Silvestre Sexton Previous Claim Processing Specialist: Dr Sal & Dr Benito Initial [facility] endocrinology office visit: 2013 Last office visit: [...] is supposed to have followed up with manager er Dr. Monge , but has missed his [...] negative. Al (more content not included)... Normal [facility] 36on 06-19-2023 36 We have been unable to reach your patient to schedule their testing. Test Name: Complete PFT pre and post bronchodilator 1st Attempt: 06/15/2023 mychart message 2nd Attempt: 06/19/2023 LVM. Normal [facility] Basophil percentageOrdered B y: Bull Lopez on 06-10-2023 Chloride [Moles/Vol] 107 mmol/L 98-[address] [facility] Glucose [Mass/Vol] 92 mg/dL 74-106 [place] [facility] Potassium [Moles/Vol] 4.1 mmol/L 3.5-5.1 [facility] Sodium [Moles/Vol] 136 mmol/L 136-145 [facility] Laboratory - Chemistry and C hemistry - challengeOrdered By: Bull Lopez on 06-10-2023 CO2 [Moles/Vol] 24.0 mmol/L 21.0-32.0 [facility] Urea nitrogen/Creatinine [Mass ratio] 16.8 mg/mg 10-20 [facility] No Panel InformationOrdered By: Bull Lopez on 06-10-2023 Estimated GFR (MDRD) Amer 80 mL/min >60 [facility] Comment on above: GFR Calc Estimated GFR (MDRD) Non-Af Amer 66 mL/min >60 [facility] Comment on above: Non- GFR Calc Serum or plasma calcium jamila urement (mass/volume)Ordered By: Bull Lopez on 06-10-2023 Calcium [Mass/Vol] 10.3 mg/dL 8.5-10.1 [facility] Serum or plasma creatinine m easurement (mass/volume)Ordered By: Bull Lopez on 06-10-2023 Creatinine [Mass/Vol] 1.19 mg/dL 0.70-1.30 [facility] Comment on above: The validity of the calculated GFR & GFRAA in patients over 70 years has not been determined. Clinical correlation is essential. Serum or plasma urea nitroge n measurement (mass/volume)Ordered By: Bull Lopez on 06-10-2023 Urea nitrogen [Mass/Vol] 20 mg/dL 7-18 [facility] Thin prep Papanicolaou smear with manual screeningOrdered By: Bull Lopez on 06-10-2023 Thin prep Papanicolaou smear with manual screening 5 5-15 [facility] Absolute lymphocyte countOrd ered By: Sanjana Hale on 06-06-2023 Lymphocytes Auto (Unsp spec) [#/Vol] 0.81 10*3/uL 0.83-4.51 [facility] Automated lymphocyte count a s percentage of total leukocytesOrdered By: Sanjana Hale on 06-06-2023 Lymphocytes/100 WBC Auto (Unsp spec) 14.3 % 19-41 [facility] Basophil percentageOrdered B y: Sanjana Hale on 06-06-2023 Basophil percentage 0 SEEN /hpf 0-5 [facility] Basophils/100 WBC (Bld) 0.9 % 0-1 [facility] Bilirubin [Mass/Vol] 0.40 mg/dL 0.20-1.00 [facility] Comment on above: For patients on eltr ombopag therapy, use of Dimension [place] TBIL is not recommended. Chloride [Moles/Vol] 109 mmol/L 98-107 [facility] Eosinophils/100 WBC (Bld) 1.8 % 0-5 [facility] Glucose [Mass/Vol] 95 mg/dL 74-106 [facility] Hemoglobin (Bld) [Mass/Vol] 14.9 g/dL 13.0-16.5 [facility] Monocytes/100 WBC (Bld) 10.6 % 0-10 [facility] Neutrophils (Bld) [#/Vol] 4.1 10*3/uL 2.0-7.7 [facility] Neutrophils/100 WBC (Bld) 71.7 % 47-70 [facility] Potassium [Moles/Vol] 4.3 mmol/L 3.5-5.1 [facility] Protein [Mass/Vol] 8.2 g/dL 6.4-8.2 [facility] Sodium [Moles/Vol] 136 mmol/L 136-145 [facility] WBC (Bld) [#/Vol] 5.7 10*3/uL 4.4-11.0 [facility] Bilirubin Test strip Ql (U)O rdered By: Sanjana Hale on 06-06-2023 Bilirubin Ql (U) Negative Negative [facility] Culture, urineOrdered By: Evelyn Hale on 06-06-2023 Bacteria identified Cx Nom (U) Culture exhibits no growth. [facility] Determination of erythrocyte mean corpuscular volume (MCV)Ordered By: Sanjana Hale on 06-06-2023 MCV (RBC) [Entitic vol] 88.5 fL 80-94 [facility] Erythrocyte distribution wid th ratioOrdered By: Sanjana Hale on 06-06-2023 Erythrocyte distribution width (RBC) [Ratio] 13.5 % 11.6-14.6 [facility] Erythrocyte distribution wid th standard deviationOrdered By: Sanjana Hale on 06-06-2023 Erythrocyte distribution width (RBC) [Entitic vol] 43.7 fL 35.1-43.9 [facility] Hematocrit Auto (Bld) [Volum e fraction]Ordered By: Sanjana Hale on 06-06-2023 Hematocrit (Bld) [Volume fraction] 45.6 % 40-54 [facility] Immature granulocytes/100 WB C Auto (Bld)Ordered By: Sanjana Hale on 06-06-2023 Immature granulocytes/100 WBC (Bld) 0.700 % 0.0-0.9 [facility] Comment on above: IG% - Immature Granu locytes (promyelocytes, myelocytes and metamyelocytes) > 1% indicates that a LEFT SHIFT is Present. Ketones Test strip Ql (U)Ord ered By: Sanjana Hale on 06-06-2023 Ketones Ql (U) Negative Negative [facility] Laboratory - Chemistry and C hemistry - challengeOrdered By: Sanjana Hale on 06-06-2023 Albumin/Globulin [Mass ratio] 1.1 {ratio} 0.9-2.4 [facility] ALP [Catalytic activity/Vol] 53 U/L 45-117 [facility] ALT [Catalytic activity/Vol] 19 U/L 16-61 [facility] CO2 [Moles/Vol] 25.0 mmol/L 21.0-32.0 [facility] Globulin (S) [Mass/Vol] 3.9 g/dL 2.2-4.2 [facility] Urea nitrogen/Creatinine [Mass ratio] 13.3 mg/mg 10-20 [facility] Laboratory - Hematology and Cell countsOrdered By: Sanjana Hale on 06-06-2023 MCH (RBC) [Entitic mass] 28.9 pg 27.0-32.0 [facility] MCHC (RBC) [Mass/Vol] 32.7 g/dL 32-36 [facility] Nucleated RBC/100 WBC (Bld) [Ratio] 0 % 0-5 [facility] Platelet mean volume (Bld) [Entitic vol] 9.5 fL 6.2-12.0 [facility] Platelets (Bld) [#/Vol] 237 10*3/uL 150-450 [facility] Mucus LM Ql (Urine sed)Order ed By: Sanjana Hale on 06-06-2023 Mucus Ql (Urine sed) 0 SEEN /hpf [facility] Nitrite Test strip Ql (U)Ord ered By: Sanjana Hale on 06-06-2023 Nitrite Ql (U) Negative Negative [facility] No Panel InformationOrdered By: Sanjana Hale on 06-06-2023 Estimated GFR (MDRD) Amer 73 mL/min >60 [facility] Comment on above: GFR Calc Estimated GFR (MDRD) Non-Af Amer 61 mL/min >60 [facility] Comment on above: Non- GFR Calc Urine RBC 0 SEEN /hpf 0-5 [facility] Protein Test strip Ql (U)Ord ered By: Sanjana Hale on 06-06-2023 Protein Ql (U) Negative Negative [facility] RBC Auto (Bld) [#/Vol]Ordere d By: Sanjana Hale on 06-06-2023 RBC (Bld) [#/Vol] 5.15 10*6/uL 4.6-6.2 [facility] Serum or plasma calcium jamila urement (mass/volume)Ordered By: Sanjana Hale on 06-06-2023 Calcium [Mass/Vol] 10.9 mg/dL 8.5-10.1 [facility] Serum or plasma creatinine m easurement (mass/volume)Ordered By: Sanjana Hale on 06-06-2023 Creatinine [Mass/Vol] 1.28 mg/dL 0.70-1.30 [facility] Comment on above: The validity of the calculated GFR & GFRAA in patients over 70 years has not been determined. Clinical correlation is essential. Serum or plasma urea nitroge n measurement (mass/volume)Ordered By: Sanjana Hale on 06-06-2023 Urea nitrogen [Mass/Vol] 17 mg/dL 7-18 [facility] Squamous epithelial cells de tection in urine sediment by light microscopyOrdered By: Sanjana Hale on 06-06-2023 Epithelial cells.squamous LM Ql (Urine sed) 0 SEEN /hpf 0-5 [facility] Thin prep Papanicolaou smear with manual screeningOrdered By: Sanjana Hale on 06-06-2023 Thin prep Papanicolaou smear with manual screening 4.3 g/dL 3.2-5.0 [facility] Thin prep Papanicolaou smear with manual screening 20 U/L 15-37 [facility] Thin prep Papanicolaou smear with manual screening 2 5-15 [facility] Urine blood detectionOrdered By: Sanjana Hale on 06-06-2023 RBC Ql (U) Negative Negative [facility] Urine clarityOrdered By: Kaylin Hale on 06-06-2023 Clarity (U) Clear Clear [facility] Urine color determinationOrd ered By: Sanjana Hale on 06-06-2023 Color (U) Yellow Yellow [facility] Urine glucose detectionOrder ed By: Sanjana Hale on 06-06-2023 Glucose Ql (U) Normal mg/dl Normal [facility] Urine leukocyte esterase det ection by dipstickOrdered By: Sanjana Hale on 06-06-2023 Leukocyte esterase Test strip Ql (U) Negative Negative [facility] Urine pHOrdered By: Sanjana oates on 06-06-2023 pH (U) 6.0 [pH] 5.0 - 8.0 [facility] Urine sediment bacteria coun t by microscopy (number/high power field)Ordered By: Sanjana Hale on 06-06-2023 Bacteria LM.HPF (Urine sed) [#/Area] 0 /[HPF] None Seen [facility] Urine specific gravity measu rementOrdered By: Sanjana Hale on 06-06-2023 Specific gravity (U) [Rel density] 1.015 1.002-1.030 [facility] Urine urobilinogen measureme ntOrdered By: Sanjana Hale on 06-06-2023 Urobilinogen Ql (U) Normal mg/dl Normal [facility] Basophil percentageOrdered B y: Sanjana Hale on 05-28-2023 Basophil percentage 0 SEEN /hpf 0-5 [facility] Bilirubin Test strip Ql (U)O rdered By: Sanjana Hale on 05-28-2023 Bilirubin Ql (U) Negative Negative [facility] Culture, urineOrdered By: Evelyn Hale on 05-28-2023 Bacteria identified Cx Nom (U) Culture exhibits no growth. [facility] Ketones Test strip Ql (U)Ord ered By: Sanjana Hale on 05-28-2023 Ketones Ql (U) Negative Negative [facility] Mucus LM Ql (Urine sed)Order ed By: Sanjana Hale on 05-28-2023 Mucus Ql (Urine sed) 0 SEEN /hpf [facility] Nitrite Test strip Ql (U)Ord ered By: Sanjana Hale on 05-28-2023 Nitrite Ql (U) Negative Negative [facility] No Panel InformationOrdered By: Sanjana Hale on 05-28-2023 Urine RBC 0 SEEN /hpf 0-5 [facility] Protein Test strip Ql (U)Ord ered By: Sanjana Hale on 05-28-2023 Protein Ql (U) 15 mg/dl Negative [facility] Squamous epithelial cells de tection in urine sediment by light microscopyOrdered By: Sanjana Hale on 05-28-2023 Epithelial cells.squamous LM Ql (Urine sed) 0-5 SEEN /hpf 0-5 [facility] Urine blood detectionOrdered By: Sanjana Hale on 05-28-2023 RBC Ql (U) Negative Negative [facility] Urine clarityOrdered By: Kaylin Hale on 05-28-2023 Clarity (U) Clear Clear [facility] Urine color determinationOrd ered By: Sanjana Hale on 05-28-2023 Color (U) Yellow Yellow [facility] Urine glucose detectionOrder ed By: Sanjana Hale on 05-28-2023 Glucose Ql (U) Normal mg/dl Normal [facility] Urine leukocyte esterase det ection by dipstickOrdered By: Sanjana Hale on 05-28-2023 Leukocyte esterase Test strip Ql (U) Negative Negative [facility] Urine pHOrdered By: Sanjana oates on 05-28-2023 pH (U) 6.0 [pH] 5.0 - 8.0 [facility] Urine sediment bacteria coun t by microscopy (number/high power field)Ordered By: Sanjana Hale on 05-28-2023 Bacteria LM.HPF (Urine sed) [#/Area] 0 /[HPF] None Seen [facility] Urine specific gravity measu rementOrdered By: Sanjana Hale on 05-28-2023 Specific gravity (U) [Rel density] 1.015 1.002-1.030 [facility] Urine urobilinogen measureme ntOrdered By: Sanjana Hale on 05-28-2023 Urobilinogen Ql (U) Normal mg/dl Normal [facility] Basophil percentageOrdered B y: Yolanda Vivar on 05-09-2023 Basophil percentage 0-5 SEEN /hpf 0-5 [facility] Bilirubin Test strip Ql (U)O rdered By: Yolanda Vivar on 05-09-2023 Bilirubin Ql (U) Negative Negative [facility] Culture, urineOrdered By: Milly Vivar on 05-09-2023 Bacteria identified Cx Nom (U) Fannyhessea vaginae [facility] Ketones Test strip Ql (U)Ord ered By: Yolanda Vivar on 05-09-2023 Ketones Ql (U) Negative Negative [facility] Mucus LM Ql (Urine sed)Order ed By: Yolanda Vivar on 05-09-2023 Mucus Ql (Urine sed) 0 SEEN /hpf [facility] Nitrite Test strip Ql (U)Ord ered By: Yolanda Vivar on 05-09-2023 Nitrite Ql (U) Negative Negative [facility] No Panel InformationOrdered By: Yolanda Vivar on 05-09-2023 Urine RBC 0 SEEN /hpf 0-5 [facility] Protein Test strip Ql (U)Ord ered By: Yolanda Vivar on 05-09-2023 Protein Ql (U) Negative Negative [facility] Squamous epithelial cells de tection in urine sediment by light microscopyOrdered By: Yolanda Vivar on 05-09-2023 Epithelial cells.squamous LM Ql (Urine sed) 0-5 SEEN /hpf 0-5 [facility] Urine blood detectionOrdered By: Yolanda Vivar on 05-09-2023 RBC Ql (U) 10 /ul Negative [facility] Urine clarityOrdered By: Lincoln Vivar on 05-09-2023 Clarity (U) Clear Clear [facility] Urine color determinationOrd ered By: Yolanda Vivar on 05-09-2023 Color (U) Yellow Yellow [facility] Urine glucose detectionOrder ed By: Yolanda Vivar on 05-09-2023 Glucose Ql (U) Normal mg/dl Normal [facility] Urine leukocyte esterase det ection by dipstickOrdered By: Yolanda Vivar on 05-09-2023 Leukocyte esterase Test strip Ql (U) 25 /ul Negative [facility] Urine pHOrdered By: Yolanda Vivar on 05-09-2023 pH (U) 6.5 [pH] 5.0 - 8.0 [facility] Urine sediment bacteria coun t by microscopy (number/high power field)Ordered By: Yolanda Vivar on 05-09-2023 Bacteria LM.HPF (Urine sed) [#/Area] RARE /hpf None Seen [facility] Urine specific gravity measu rementOrdered By: Yolanda Vivar on 05-09-2023 Specific gravity (U) [Rel density] 1.015 1.002-1.030 [facility] Urine urobilinogen measureme ntOrdered By: Yolanda Vivar on 05-09-2023 Urobilinogen Ql (U) Normal mg/dl Normal [facility] 36on 04-30-2023 36 Multiple no shows an d cancellations. Needs seen in office for refills. Isa Tran [facility] Basophil percentageOrdered B y: Sanjana Alexia on 03-21-2023 Bilirubin [Mass/Vol] 0.40 mg/dL 0.20-1.00 [facility] Comment on above: For patients on eltr ombopag therapy, use of Dimension [place] TBIL is not recommended. Protein [Mass/Vol] 8.0 g/dL 6.4-8.2 [facility] Cholesterol [Mass/Vol] 153 mg/dL <200 [facility] Comment on above: <200 mg/dL Desirable 200-240 mg/dL Borderline >240 mg/dL High Risk Triglyceride [Mass/Vol] 141 mg/dL <199 [facility] Comment on above: The drugs N-Acetylcy steine and Metamizole may falsely depress this assay.Serum Triglycerides Reference Interval Normal <150 mg/dL Borderline high 150 - 199 mg/dL High 200 - 499 mg/dL Very High > or = 500 mg/dL Direct bilirubinOrdered By: Sanjana Hale on 03-21-2023 Bilirubin.direct [Mass/Vol] 0.09 mg/dL 0.00-0.30 [facility] High density lipoprotein (HD L) measurementOrdered By: Sanjnaa Hale on 03-21-2023 Cholesterol in HDL (Body fld) [Mass/Vol] 37 mg/dL >40 [facility] Comment on above: The drugs N-Acetylcy steine and Metamizole may falsely depress this assay. Reference Range HDL <40 mg/dL Low HDL Cholesterol HDL >or= 60 mg/dL High HDL Cholesterol Laboratory - Chemistry and C hemistry - challengeOrdered By: Sanjana Hale on 03-21-2023 ALP [Catalytic activity/Vol] 57 U/L 45-117 [facility] ALT [Catalytic activity/Vol] 23 U/L 16-61 [facility] Globulin (S) [Mass/Vol] 3.7 g/dL 2.2-4.2 [facility] Low density lipoprotein (LDL ) cholesterol measurementOrdered By: Sanjana Hale on 03-21-2023 Cholesterol in LDL (Body fld) [Moles/Vol] 88 mg/dL 0-130 [facility] Screening prostate specific antigen (PSA) measurementOrdered By: Sanjana Hale on 03-21-2023 Prostate specific Ag IA [Mass/Vol] 0.34 ng/mL 0.00-4.00 [facility] Comment on above: This test was perfor med using the TPSA assay method for the[facility] system. Values obtained with differentassay methods cannot be used interchangably.When changing PSA assays in the course of monitoring apatient, additional sequential testing should be carriedout to confirm baseline values. Thin prep Papanicolaou smear with manual screeningOrdered By: Sanjana Hale on 03-21-2023 Thin prep Papanicolaou smear with manual screening 4.3 g/dL 3.2-5.0 [facility] Thin prep Papanicolaou smear with manual screening 21 U/L 15-37 [facility] Very low density lipoprotein (VLDL) cholesterol measurementOrdered By: Sanjana Hale on 03-21-2023 Cholesterol in VLDL Calc [Moles/Vol] 28 mg/dL 5-40 [facility] Whole blood hemoglobin A1c/t otal hemoglobin ratio (mass fraction)Ordered By: Sanjana Hale on 03-21-2023 HbA1c (Bld) [Mass fraction] 5.3 % 3.8-5.6 [facility] Comment on above: Normal < 5.7 % Predi abetic 5.7 - 6.4 % Diabetic >or= 6.5 % Please note range changes. Absolute lymphocyte countOrd ered By: Ryan Ceja on 02-13-2023 Lymphocytes Auto (Unsp spec) [#/Vol] 0.89 10*3/uL 0.83-4.51 [facility] Basophil percentageOrdered B y: Ryan Ceja on 02-13-2023 Basophils/100 WBC (Bld) 0.3 % 0-1 [facility] Eosinophils/100 WBC (Bld) 0.8 % 0-5 [facility] Neutrophils (Bld) [#/Vol] 5.5 10*3/uL 2.0-7.7 [facility] Neutrophils/100 WBC (Bld) 77.5 % 47-70 [facility] WBC (Bld) [#/Vol] 7.1 10*3/uL 4.4-11.0 [facility] Blood erythrocytes count (nu mber/volume)Ordered By: Ryan Ceja on 02-13-2023 RBC (Bld) [#/Vol] 4.10 10*6/uL 4.6-6.2 [facility] Blood hemoglobin measurement (mass/volume)Ordered By: Ryan Ceja on 02-13-2023 Hemoglobin (Bld) [Mass/Vol] 12.3 g/dL 13.0-16.5 [facility] Blood lymphocytes/100 leukoc ytesOrdered By: Ryan Ceja on 02-13-2023 Lymphocytes/100 WBC (Bld) 12.6 % 19-41 [facility] Blood monocytes/100 leukocyt esOrdered By: Ryan Ceja on 02-13-2023 Monocytes/100 WBC (Bld) 8.5 % 0-10 [facility] Blood platelet mean volumeOr dered By: Ryan Ceja on 02-13-2023 Platelet mean volume (Bld) [Entitic vol] 9.6 fL 6.2-12.0 [facility] Determination of erythrocyte mean corpuscular volume (MCV)Ordered By: Ryan Ceja on 02-13-2023 MCV (RBC) [Entitic vol] 92.7 fL 80-94 [facility] Hematocrit Auto (Bld) [Volum e fraction]Ordered By: Ryan Ceja on 02-13-2023 Hematocrit (Bld) [Volume fraction] 38.0 % 40-54 [facility] Laboratory - CoagulationOrde red By: Ryan Ceja on 02-13-2023 aPTT Coag (Bld) [Time] 47.0 s 24.1-36.2 [facility] Laboratory - Hematology and Cell countsOrdered By: Ryan Ceja on 02-13-2023 Erythrocyte distribution width (RBC) [Entitic vol] 45.6 fL 35.1-43.9 [facility] Erythrocyte distribution width (RBC) [Ratio] 13.4 % 11.6-14.6 [facility] Immature granulocytes/100 WBC (Bld) 0.300 % 0.0-0.9 [facility] Comment on above: IG% - Immature Granu locytes (promyelocytes, myelocytes and metamyelocytes) > 1% indicates that a LEFT SHIFT is Present. MCH (RBC) [Entitic mass] 30.0 pg 27.0-32.0 [facility] Nucleated RBC/100 WBC (Bld) [Ratio] 0 % 0-5 [facility] MCHC Auto (RBC) [Mass/Vol]Or dered By: Ryan Ceja on 02-13-2023 MCHC (RBC) [Mass/Vol] 32.4 g/dL 32-36 [facility] Platelets bldOrdered By: Suzette Ceja on 02-13-2023 Platelets (Bld) [#/Vol] 202 10*3/uL 150-450 [facility] Basophil percentageOrdered B y: Ryan Ceja on 02-12-2023 Chloride [Moles/Vol] 113 mmol/L 98-107 [facility] Glucose [Mass/Vol] 95 mg/dL 74-106 [facility] Potassium [Moles/Vol] 4.4 mmol/L 3.5-5.1 [facility] Sodium [Moles/Vol] 141 mmol/L 136-145 [facility] Laboratory - Chemistry and C hemistry - challengeOrdered By: Ryan Ceja on 02-12-2023 CO2 [Moles/Vol] 26.0 mmol/L 21.0-32.0 [facility] Urea nitrogen/Creatinine [Mass ratio] 14.7 mg/mg 10-20 [facility] No Panel InformationOrdered By: Ryan Ceja on 02-12-2023 Activated Clotting Time 212 sec 74-137 [facility] Estimated Creatinine Clearance Calc 82.74 ml/min [facility] Estimated GFR (MDRD) Amer 88 mL/min >60 [facility] Comment on above: GFR Calc Estimated GFR (MDRD) Non-Af Amer 73 mL/min >60 [facility] Comment on above: Non- GFR Calc Serum or plasma calcium jamila urement (mass/volume)Ordered By: Ryan Ceja on 02-12-2023 Calcium [Mass/Vol] 9.9 mg/dL 8.5-10.1 [facility] Serum or plasma creatinine m easurement (mass/volume)Ordered By: Ryan Ceja on 02-12-2023 Creatinine [Mass/Vol] 1.09 mg/dL 0.70-1.30 [facility] Comment on above: The validity of the calculated GFR & GFRAA in patients over 70 years has not been determined. Clinical correlation is essential. Serum or plasma urea nitroge n measurement (mass/volume)Ordered By: Ryan Ceja on 02-12-2023 Urea nitrogen [Mass/Vol] 16 mg/dL 7-18 [facility] Thin prep Papanicolaou smear with manual screeningOrdered By: Ryan Ceja on 02-12-2023 Thin prep Papanicolaou smear with manual screening 2 5-15 [facility] Basophil percentageOrdered B y: Ryan Ceja on 02-07-2023 Basophil percentage < 1.0 mg/dL 0.70-1.30 [facility] No Panel InformationOrdered By: Fabio Day on 02-07-2023 Thyroid Stimulating Hormone (TSH) 1.36 uIU/mL 0.358-3.74 [facility] No Panel InformationOrdered By: Ryan Ceja on 02-07-2023 Bedside Estimated GFR (eGFR) > 60.0000 mL/min >60 [facility] 36on 01-29-2023 36 Medication name: tamsulosin (Flomax) Medication dosage: 0.4 [...] prior to picking up the medication: No [address] 01-25-2023 36 90 day supply for cabergoiline sent [place] [address] Name of caller: Flower crowe Contact phone number: [phone] Relationship to Patient: patient Provider: Dr Ruiz Practice: Endo Chief Complaint/Reason for Call: Pt states that Dr Mendoza was aware that the pt was on vacation and that Dr Mendoza wanted to know immediately when the pt came back in town so that a prescription of a 90 day supply of cabergoline (Dostinex) 0.5 MG tablet [[id number]] would be call in to the [facility] pharmacy on file. Pt states is all out of the medication. Please advise Best time of day caller can be reached: Any Patient advised that office/PCP has 24-48 business hours to return their call: Yes [address] 01-09-2023 36 Pa approved [address] 01-08-2023 36 Submitted PA for testosterone pump 2 pumps daily for 150g for a 30 day supply. Waiting on determination from [facility]. [address] 01-04-2023 36 Was informed by pharmacy that prescription for androgel needs prior auth , can you please help with this ? Thanks Normal [facility] 36 Patient was here in the clinic to [...] TESTOSTERONE 72 - 623 ng/dL 103 Normal [facility] 36 It looks like you sent the cabergoline in on 01/02/23, but does he take testosterone? I do not see it. Normal [facility] 36 Name of caller: Flower crowe Contact phone number: [phone] Relationship to Patient: patient Provider: Joseph Practice: [...] hours to return their call: Yes Normal [facility] 25-hydroxyvitamin D3 [Mass/V ol]on 01-03-2023 Interpretation and review of laboratory results Normal [facility] Therapy is based on measurement of Total 25-OHD with the following classification levels: Less than 20 ng/mL: Indicative of Vit D deficiency 20-30 ng/mL: Suggests Vit D insufficiency Optimal: Greater than or equal to 30 ng/mL Test performed by [employer] Immunoassay, measuring Total Vitamin D, not individual fractions. [facility] COMPREHENSIVE METABOLIC PANE Sumeet 01-03-2023 Albumin [Mass/Vol] 4.7 g/dL Normal 3.5-5.0 [facility] Comment on above: Performed By: #### L [id number] #### Rn Plasma Center: LENORE ESCOBAR ([id number]) [facility] ([facility]) [address] [place] [address] ALP [Catalytic activity/Vol] 46 U/L Normal 38-126 [facility] Comment on above: Performed By: #### L [id number] #### Rn Plasma Center: LENORE ESCOBAR ([id number]) [facility] [address] [place] [address] ALT [Catalytic activity/Vol] 17 U/L Normal 0-49 [facility] Comment on above: Performed By: #### L [id number] #### Rn Plasma [facility]: LENORE ESCOBAR ([id number]) [facility] [address] [place] [address] Anion gap [Moles/Vol] 11 mmol/L Normal 3-13 [facility] Comment on above: Performed By: #### L [id number] #### Rn Plasma Center: LENORE ESCOBAR ([id number]) [facility] ([facility] [address] [place] [address] AST [Catalytic activity/Vol] 23 U/L Normal 15-46 [facility] Comment on above: Performed By: #### L [id number] #### Rn Plasma Center: LENORE ESCOBAR ([id number]) [facility] ([facility]) [address] [place] [address] Bilirubin [Mass/Vol] 0.5 mg/dL Normal 0.2-1.3 [facility] Comment on above: Performed By: #### L [id number] #### Rn Plasma Center: LENORE ESCOBAR ([id number]) [facility] ([facility]) [address] [place] [address] Calcium [Mass/Vol] 10.5 mg/dL High 8.4-10.4 [facility] Comment on above: Performed By: #### L [id number] #### Rn Plasma [facility]: LENORE ESCOBAR ([id number]) [facility] ([facility]) [address] [place] [address] Chloride [Moles/Vol] 109 mmol/L High 98-107 [facility] Comment on above: Performed By: #### L [id number] #### Rn Plasma Center: LENORE ESCOBAR ([id number]) [facility] ([facility]) [address] [place] [address] CO2 [Moles/Vol] 20 mmol/L Low 22-30 [facility] Comment on above: Performed By: #### L [id number] #### Rn Plasma Center: LENORE ESCOBAR ([id number]) [facility] ([facility]) [address] [place] [address] Creatinine [Mass/Vol] 1.20 mg/dL Normal 0.66-1.25 [facility] Comment on above: Performed By: #### L [id number] #### Rn Plasma Center: LENORE ESCOBAR ([id number]) [facility]) [address] [place] [address] GLOMERULAR FILTRATION RATE ML/MIN/1.73 SQ M.PREDICTED 68.8 mL/min/1.73m*2 Normal >60.0 [facility] Comment on above: Result Comment: Calc ulation based on the Chronic Kidney Disease Epidemiology Collaboration (CKD-EPI) equation refit without adjustment for race Performed By: #### L [id number] #### Rn Plasma Center: LENORE ESCOBAR ([id number]) [facility] ([facility]) [address] [place] [address] Glucose [Mass/Vol] 113 mg/dL High 70-100 [facility] Comment on above: Performed By: #### L [id number] #### Rn Plasma Center: LENORE ESCOBAR ([id number]) [facility]) [address] [place] [address] Potassium [Moles/Vol] 4.5 mmol/L Normal 3.5-5.1 [facility] Comment on above: Performed By: #### L [id number] #### Rn Plasma Center: LENORE ESCOBAR ([id number]) [facility]) [address] [place] [address] Protein [Mass/Vol] 7.9 g/dL Normal 6.3-8.2 [facility] Comment on above: Performed By: #### L [id number] #### Rn Plasma Center: LENORE [id number]) [facility] ([facility]) [address] [place] [address] Sodium [Moles/Vol] 140 mmol/L Normal 135-145 [facility] Comment on above: Performed By: #### L [id number] #### Rn Plasma Center: LENORE ESCOBAR ([id number]) [facility] ([facility]) [address] [place] [address] Urea nitrogen [Mass/Vol] 20 mg/dL Normal 9-20 [facility] Comment on above: Performed By: #### L [id number] #### Rn Plasma Center: LENORE ESCOBAR ([id number]) [facility] ([facility]) [address] [place] [address] Comprehensive metabolic 1998 panelon 01-03-2023 Albumin [Mass/Vol] 4.7 g/dL 3.5 - 5.0 g/dL [facility] ALP [Catalytic activity/Vol] 46 U/L 38 - 126 U/L [facility] ALT [Catalytic activity/Vol] 17 U/L 0 - 49 U/L [facility] Anion gap [Moles/Vol] 11 mmol/L 3 - 13 mmol/L [facility] AST [Catalytic activity/Vol] 23 U/L 15 - 46 U/L [facility] Bilirubin [Mass/Vol] 0.5 mg/dL 0.2 - 1 .3 mg/dL [facility] Calcium [Mass/Vol] 10.5 mg/dL High 8.4 - 10. 4 mg/dL [facility] Chloride [Moles/Vol] 109 mmol/L High 98 - 10 7 mmol/L [facility] CO2 [Moles/Vol] 20 mmol/L Low 22 - 30 mmol/L [facility] Creatinine [Mass/Vol] 1.20 mg/dL 0.66 - 1.25 mg/dL [facility] GFR/1.73 sq M.predicted MDRD (S/P/Bld) [Vol rate/Area] 68.8 mL/min/{1.73_m2} - PINF [facility] Comment on above: Calculation based on the Chronic Kidney Disease Epidemiology Collaboration (CKD-EPI) equation refit without adjustment for race Glucose [Mass/Vol] 113 mg/dL High 70 - 100 mg/dL [facility] Interpretation and review of laboratory results Abnormal [facility] Potassium [Moles/Vol] 4.5 mmol/L 3.5 - 5.1 mmol/L [facility] Protein [Mass/Vol] 7.9 g/dL 6.3 - 8.2 g/dL [facility] Sodium [Moles/Vol] 140 mmol/L 135 - 145 mmol/L [facility] Urea nitrogen [Mass/Vol] 20 mg/dL 9 - 20 mg/dL [facility] FOLLICLE STIMULATING HORMONE on 01-03-2023 FOLLICLE STIM HORMONE 7.3 mIU/mL Normal [facility] Comment on above: Result Comment: JULISSA Issa COMMENTS: Females: Follicular Phase ...... 2.0-11.6 Mid-cycle Peak ........ 5.1-23.4 Luteal Phase .......... 1.4-9.6 Post-menopausal ....... 21.5-131.0 Males: 1.6-9.7 Performed By: #### L [id number] #### Rn Plasma Center: LENORE ESCOBAR ([id number]) [facility] ([facility]) [address] [place] [address] FREE T4on 01-03-2023 Free T4 [Mass/Vol] 0.87 ng/dL Normal 0.78-2.19 [facility] Comment on above: Performed By: #### L [id number] #### Rn Plasma Center: LENORE ESCOBAR ([id number]) [facility] ([facility]) [address] [place] [address] Follicle stimulating hormone on 01-03-2023 Follitropin Qn 7.3 m[IU]/mL mIU/mL [facility] Females: Follicular Phase ...... 2.0-11.6 Mid-cycle Peak ........ 5.1-23.4 Luteal Phase .......... 1.4-9.6 Post-menopausal ....... 21.5-131.0 Males: 1.6-9.7 [facility] Free T4 [Mass/Vol]on 023 Free T4 Dialysis [Mass/Vol] 0.87 ng/dL 0.78 - 2.19 ng/dL [facility] Interpretation and review of laboratory results Normal [facility] HEMOGLOBIN AND HEMATOCRIT, B LOODon 01-03-2023 Hematocrit (Bld) [Volume fraction] 42.3 % Normal 40.0-52.0 [facility] Comment on above: Performed By: #### L [id number] #### Rn Plasma Center: LENORE ESCOBAR ([id number]) [facility] ([facility]) [address] [place] [address] Hemoglobin (Bld) [Mass/Vol] 14.4 g/dL Normal 13.0-18.0 [facility] Comment on above: Performed By: #### L [id number] #### Rn Plasma Center: LENORE ESCOBAR ([id number]) [facility] ([facility]) [address] [place] [address] Hemoglobin (Bld) [Mass/Vol]o n 01-03-2023 Hematocrit (Bld) [Volume fraction] 42.3 % 40.0 - 52.0 % [facility] Interpretation and review of laboratory results Normal [facility] Hemoglobin and hematocrit, b loodon 01-03-2023 Hemoglobin (Bld) [Mass/Vol] 14.4 g/dL 13.0 - 18.0 g/dL [facility] LUTEINIZING HORMONEon 2022 LUTEINIZING HORMONE 4.8 mIU/mL Normal [facility] Comment on above: Result Comment: Fema les: Follicular Phase ...... 1.9-26.2 Mid-Cycle Peak ........ 22.8-76.1 Luteal Phase .......... 0.6-16.6 Post-menopausal ....... 8.6-61.8 (Not on MHT) Males: 1.2-10.6 Performed By: #### L [id number] #### Rn Plasma Center: LENORE ESCOBAR ([id number]) [facility] ([facility]) [address] [place] [address] Luteinizing hormoneon 2022 Lutropin Qn 4.8 m[IU]/mL mIU/mL [facility] h Comment on above: Females: Follicular Phase ...... 1.9-26.2 Mid-Cycle Peak ........ 22.8-76.1 Luteal Phase .......... 0.6-16.6 Post-menopausal ....... 8.6-61.8 (Not on MHT) Males: 1.2-10.6 No Panel Informationon 01-03 [facility] PROLACTINon 01-03-2023 PROLACTIN 29.4 ng/mL High 4.0-18.0 [facility] Comment on above: Result Comment: JULISSA Issa COMMENTS: Values below 35 ng/mL may be of doubtful significance. Recommend send-out testing to rule out macroprolactin to confirm the result. Performed By: #### L [id number] #### Rn Plasma Center: LENORE ESCOBAR ([id number]) [facility] ([facility]) [address] [place] [address] PSA TOTAL (SCREENING)on PROSTATE SPECIFIC AG SCREEN 0.2 ng/mL Normal <4.0 [facility] Comment on above: Result Comment: JULISSA Issa COMMENTS: Testing performed on the [employer] using the chemiluminescent microparticle immunoassay method. Results obtained by different methods should not be used interchangeably. PSA result is based on a new assay run on a new instrument and the results may not be comparable with assays run prior to 11/13/2022. Performed By: #### L [id number] #### Rn Plasma Center: LENORE ESCOBAR ([id number]) [facility] ([facility]) [address] [place] [address] PSA Total (Screening)on Interpretation and review of laboratory results Normal [facility] Prostate specific Ag [Mass/Vol] 0.2 ng/mL NINF - 4.0 ng/mL [facility] Testing performed on the [employer] using the chemiluminescent microparticle immunoassay method. Results obtained by different methods should not be used interchangeably. PSA result is based on a new assay run on a new instrument and the results may not be comparable with assays run prior to 11/13/2022. [facility] PTH INTACTon 01-03-2023 PTH, INTACT 51.7 pg/mL Normal 7.5-53.5 [facility] Comment on above: Performed By: #### L [id number] #### Rn Plasma Center: LENORE ESCOBAR ([id number]) [facility] ([facility] [address] [place] [address] PTH, intacton 01-03-2023 Parathyrin.intact [Mass/Vol] 51.7 pg/mL 7.5 - 53.5 pg/mL [facility] Parathyrin.intact [Mass/Vol] on 01-03-2023 Interpretation and review of laboratory results Normal [facility] Prolactinon 01-03-2023 Interpretation and review of laboratory results Abnormal [facility] Prolactin [Mass/Vol] 29.4 ng/mL High 4.0 - 1 8.0 ng/mL [facility] Values below 35 ng/m L may be of doubtful significance. Recommend send-out testing to rule out macroprolactin to confirm the result. [facility] TESTOSTERONEon 01-03-2023 Testosterone [Mass/Vol] 103 ng/dL Normal 72-623 [facility] Comment on above: Performed By: #### L [id number] #### Rn Plasma Center: LENORE ESCOBAR ([id number]) [facility] ([facility]) [address] [place] [address] THYROID STIMULATING HORMONEo n 01-03-2023 THYROID STIMULATING HORMONE 2.568 uIU/mL Normal 0.465-4.680 [facility] Comment on above: Performed By: #### L [id number] #### Rn Plasma Center: LENORE ESCOBAR ([id number]) [facility] ([facility]) [address] [place] [address] [place] TSHon 01-03-2023 TSH Qn 2.568 m[IU]/L [facility] h TSH Qnon 01-03-2023 Interpretation and review of laboratory results Normal [facility] Testosteroneon 01-03-2023 Interpretation and review of laboratory results Normal [facility] Testosterone [Mass/Vol] 103 ng/dL 72 - 623 ng/dL [facility] VITAMIN D DEFICIENCY SCREENI NG (VIT D 25)on 01-03-2023 VIT D 25-OH, TOTAL 33 ng/mL Normal 30-100 [facility] Comment on above: Result Comment: JULISSA Issa COMMENTS: Therapy is based on measurement of Total 25-OHD with the following classification levels: Less than 20 ng/mL: Indicative of Vit D deficiency 20-30 ng/mL: Suggests Vit D insufficiency Optimal: Greater than or equal to 30 ng/mL Test performed by [employer] Immunoassay, measuring Total Vitamin D, not individual fractions. Performed By: #### L [id number] #### Rn Plasma Center: LENORE ESCOBAR ([id number]) [facility] ([facility]) [address] [place] [address] Vitamin D Deficiency Screeni ng (Vit D 25)on 01-03-2023 25-hydroxyvitamin D3 [Mass/Vol] 33 ng/mL 30 - 100 ng/mL [facility] 36on 01-02-2023 36 called and spoke wit h pharmacist, insurance will not cover a 90-day supply right now but will cover a 30-day supply. Prescription for 30 days sent to the pharmacy, informed patient. Normal [facility] 36 Pt called and states that pharmacy refuses to refill the cabergoline Script that you sent in today. States that they can not refill until 01/24/23 and he will be without medication for 2 weeks by that point and will also be out of town on that date. Pt requesting a call back CHANCE. Normal [facility] Office Visiton 01-02-2023 Follow-up visit [id number] Flower Queen 1960 [facility] Provider Department Center 01/02/2023 [id number] RUIZ VE*[facility] END None Family History Adopted: Yes Problem Relation Age of Onset No Known Problems Father Cancer Mother Comments: lung Family Status - Relation Status Age at Father Mother Level of Service:10316 [place] OFFICE/OUTPATIENT ESTABLISHED MOD MDM 30-39 MIN Reason for Visit and Comments: Follow-up [496814] Hypothyroidism [143] pituitary macroprolactinoma [Other] [facility] Follow-up visit [id number] Flower Queen 1960 M Date Provider Department Center 01/02/2023 [id number], ZIGGY Mendoza [facility] GIACOMO BAR None Family History Adopted: Yes Problem Relation Age of Onset No Known Problems Father Cancer Mother Comments: lung Family Status - Relation Status Age at Father Mother Level of Service:70059 MT OFFICE/OUTPATIENT ESTABLISHED LOW MDM 20-29 MIN Reason for Visit and Comments: Post-op [483] - 1st po L iliofemoral DVT thrombectomy 12/21/22 Normal [facility] Progress Noteon 01-02-2023 Progress Note [facility] [address] [facility] [address] Dept: [phone] Dept Loc: [phone] Visit type: Established Reason for Visit: Follow-up, [...] had mild intermittent hypercalcemia since at least 2019, PTH levels checked have been normal between [...] Cheryl Basilio MD Referring is PCP Previous Claim Processing Specialist: Dr Sal & Dr Benito [facility] visit: 2013 Last office visit: August 2021 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 and pituitary MRI had shown a 3 [...] is supposed to have followed up with manager er Dr. Monge , but has missed his [...] fenofibrate (Triglide) 160 (more content not included)... [facility] Progress Note 01/02/2023 Corrie Queen 1960 Chief Complaint Patient presents with [...] diverticulitis THROMBECTOMY Left 12/21/2022 Ileofemoral DVT thrombectomy ([place]) TONSILLECTOMY (HISTORICAL) Physical Exam: The puncture site [...] guarantee Follow up for any concerns. . [facility] Progress Noteon 12-31-2022 Progress Note Chart reviewed of ED follow up Seen in [facility] ED on 12/25/2022 Reason: Bleeding post-op [...] Dr. Davonte SANDERSON Vascular surgery. Seen in [facility] on 12/22/22 for Flank pain was seen she has been in contact with her PCP. On 12/25/22 she was admitted for Sebaceous cyst of left eyelid. [facility] 36on 12-26-2022 36 Left detailed VM per patient request to inform. [facility] 36 Pt just had surgery yesterday--planned OV 01/02 Would advise patient wait until evaluated at post op appointment [facility] 36 Patient had L leg venogram 12/25/22 [...] vein. Next OV 01/02/[address] Arauz[address] [facility] [id number] 12-25-2022 [id number] Patient upset jaceyin g to leave,eye drops called to his pharmacy, patient transported out via w/c with the daughter [facility] [id number] Patient post bedrest is complains of left eye pain and light sensitivity, upon attempting to open the eye, Dr Cornelius contacted and re recommends eye oint for 2 days and follow up with eye MD if no better in 2 days , Resident Pacheco Santiago notified they will place new orders. [facility] [id number] Discharge instructions reviewed with the patient and the daughter, patient to follow up with after discharge, no further questions , patient instructed on surgical site care. [facility] [id number] Family notified of arrival to [facility] 36on 12-25-2022 36 Mychart message sent [facility] ED Nursing Noteon 12-25-2022 ED Nursing Note Bleeding subsided. P t given dc instructions and follow up care. Pt verbalizes understanding. Pt amb indep to dc area, home w family [facility] ED Nursing Note Patient ambulatory t o [...] preparing for surgery. Call light in reach. [facility] ED Provider Noteon ED Provider Note Emergency Department Encounter [facility] ED Patient: Corrie Queen : 1960 Date of Evaluation: 12/25/2022 ED Provider: Pacheco Ortiz MD Note: I wore an N95 mask and gloves during this encounter. CHIEF COMPLAINT: post op bleeding Chief Complaint Patient presents with Post-op Problem Surgery today for clot removal in left lower leg, presenting status post-op saturated tegaderm and gauze behind the left knee, blood draining down leg upon arrival HPI: Corrie Queen is a 62 y.o. male with [...] ointment (has no administration in time range) Corrie Queen is a 62 y.o. male who [...] for clarification. Pacheco Ortiz MD [employer] Pacheco Ortiz MD 12/25/222016 [facility] FL GUIDANCE OR USE ONLY - NO N RESULTABLEon 12-25-2022 There is no interpretation needed for this exam. IMAGING Nursing Noteon 12-25-2022 Nursing Note Daughter called to the room [facility] Nursing Note Family member update janelle Mendiola daughter regarding current status and bedrest [facility] Op Noteon 12-25-2022 Op Note Date: 12/25/2022 Location: 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 [facility] 36on 12-24-2022 36 Urinalysis and urine culture still show no signs of infection. Thanks [facility] 36 Name of caller: Flower Queen Contact phone number: [phone] Relationship to Patient: patient Provider: Dr. Basilio Practice: [facility] Chief Complaint/Reason for Call: Please call the pt chance Pt stated he had urine and blood work done on 12.21.2022, pt stated this was STAT and he would like the results today since he is having surgery tomorrow 12.25.2022. Please advise. Thank you. Best time of day caller can be reached: Any Patient advised that office/PCP has 24-48 business hours to return their call: Yes [facility] 36 Name of caller: Flower Queen Contact phone number: [phone] Relationship to Patient: patient Provider: Dr. Basilio [...] business hours to return their call: Yes [facility] 36on 12-22-2022 36 S: Patient spoke bhargav h [facility] nurse regarding flank pain B: Onset of [...] seen at beginning of the week in [place]. Urine was negative at that time. Was [...] Patient verbalizes understanding. States will go to [place] ED because has not had luck at [place]. Instructed to call back with any further questions or concerns. Reason for Disposition [1] Abdominal pain AND [2] age > 60 years Protocols used: Flank [id number] Normal [facility] BASIC METABOLIC PANELon 10-2 Anion gap [Moles/Vol] 10 mmol/L Normal 3-13 [facility] Comment on above: Performed By: #### L [id number] #### Rn Plasma Center: LENORE ESCOBAR ([id number]) [facility]) [address] [place] [address] Calcium [Mass/Vol] 10.5 mg/dL High 8.4-10.4 [facility] Comment on above: Performed By: #### L [id number] #### Rn Plasma Center: LENORE ESCOBAR ([id number]) [facility]) [address] [place] [address] Chloride [Moles/Vol] 109 mmol/L High 98-107 [facility] Comment on above: Performed By: #### L [id number] #### Rn Plasma Center: LENORE ESCOBAR ([id number]) [facility]) [address] [place] [address] CO2 [Moles/Vol] 22 mmol/L Normal 22-30 [facility] Comment on above: Performed By: #### L [id number] #### Rn Plasma Center: LENORE ESCOBAR ([id number]) [facility]) [address] [place] [address] Creatinine [Mass/Vol] 1.18 mg/dL Normal 0.66-1.25 [facility] Comment on above: Performed By: #### L [id number] #### Rn Plasma Center: LENORE [id number]) [facility]) [address] [place] [address] GLOMERULAR FILTRATION RATE ML/MIN/1.73 SQ M.PREDICTED 70.2 mL/min/1.73m*2 Normal >60.0 [facility] Comment on above: Result Comment: Calc ulation based on the Chronic Kidney Disease Epidemiology Collaboration (CKD-EPI) equation refit without adjustment for race Performed By: #### L [id number] #### Rn Plasma Center: LENORE ESCOBAR ([id number]) [facility] ([facility]) [address] [place] [address] Glucose [Mass/Vol] 104 mg/dL High 70-100 [facility] Comment on above: Performed By: #### L [id number] #### Rn Plasma Center: LENORE ESCOBAR ([id number]) [facility] ([facility]) [address] [place] [address] Potassium [Moles/Vol] 4.1 mmol/L Normal 3.5-5.1 [facility] Comment on above: Performed By: #### L [id number] #### Rn Plasma Center: LENORE ESCOBAR ([id number]) [facility] ([facility]) [address] [place] [address] Sodium [Moles/Vol] 142 mmol/L Normal 135-145 [facility] Comment on above: Performed By: #### L [id number] #### Rn Plasma Center: LENORE ESCOBAR ([id number]) [facility] ([facility]) [address] [place] [address] Urea nitrogen [Mass/Vol] 18 mg/dL Normal 9-20 [facility] Comment on above: Performed By: #### L [id number] #### Rn Plasma Center: LENORE ESCOBAR ([id number]) [facility] ([facility]) [address] [place] [address] Basic metabolic 1998 panelon 12-22-2022 Anion gap [Moles/Vol] 10 mmol/L 3 - 13 mmol/L [facility] Calcium [Mass/Vol] 10.5 mg/dL High 8.4 - 10. 4 mg/dL [facility] Chloride [Moles/Vol] 109 mmol/L High 98 - 10 7 mmol/L [facility] CO2 [Moles/Vol] 22 mmol/L 22 - 30 mmol/L [facility] Creatinine [Mass/Vol] 1.18 mg/dL 0.66 - 1.25 mg/dL [facility] GFR/1.73 sq M.predicted MDRD (S/P/Bld) [Vol rate/Area] 70.2 mL/min/{1.73_m2} - PINF [facility] Comment on above: Calculation based on the Chronic Kidney Disease Epidemiology Collaboration (CKD-EPI) equation refit without adjustment for race Glucose [Mass/Vol] 104 mg/dL High 70 - 100 mg/dL [facility] Interpretation and review of laboratory results Abnormal [facility] Potassium [Moles/Vol] 4.1 mmol/L 3.5 - 5.1 mmol/L [facility] Sodium [Moles/Vol] 142 mmol/L 135 - 145 mmol/L [facility] Urea nitrogen [Mass/Vol] 18 mg/dL 9 - 20 mg/dL [facility] CBC W Auto Differential pane l (Bld)Ordered By: Akila Denson on 12-22-2022 Basophils (Bld) [#/Vol] 0.0 10*3/uL 0.0 - 0.2 10*3/uL [facility] Basophils/100 WBC (Bld) 0.7 % 0.0 - 2.0 % [facility] Eosinophils (Bld) [#/Vol] 0.2 10*3/uL 0. 0 - 0.5 10*3/uL [facility] Eosinophils/100 WBC (Bld) 3.4 % 1.0 - 6.0 % [facility] Erythrocyte distribution width (RBC) [Ratio] 14.0 % 11.5 - 14.5 % [facility] Hematocrit (Bld) [Volume fraction] 41.6 % 40.0 - 52.0 % [facility] Hemoglobin (Bld) [Mass/Vol] 14.1 g/dL 13.0 - 18.0 g/dL [facility] Immature granulocytes (Bld) [#/Vol] 0.0 10*3/uL NINF - 0.0 10*3/uL [facility] Immature granulocytes/100 WBC (Bld) 0.2 % High NINF - 0.0 % [facility] Interpretation and review of laboratory results Abnormal [facility] Lymphocytes (Bld) [#/Vol] 1.7 10*3/uL 1. 0 - 4.3 10*3/uL [facility] Lymphocytes/100 WBC (Bld) 30.9 % 20 .0 - 40.0 % [facility] MCH (RBC) [Entitic mass] 31.2 pg 26. 0 - 34.0 pg [facility] MCHC (RBC) [Mass/Vol] 33.9 % 32.0 - 36.0 % [facility] MCV (RBC) [Entitic vol] 92.0 fL 80.0 - 98.0 fL [facility] Monocytes (Bld) [#/Vol] 0.5 10*3/uL 0.0 - 0.8 10*3/uL [facility] Monocytes/100 WBC (Bld) 8.8 % 2.0 - 10.0 % [facility] Neutrophils (Bld) [#/Vol] 3.0 10*3/uL 1. 8 - 7.0 10*3/uL [facility] Neutrophils/100 WBC (Bld) 56.0 % 40 .0 - 80.0 % [facility] Platelet mean volume (Bld) [Entitic vol] 9.1 fL 7.4 - 12.4 fL [facility] Comment on above: MPV is a calculated measurement using platelet volume ratio Platelets (Bld) [#/Vol] 243 10*3/uL 140 - 440 10*3/uL [facility] RBC (Bld) [#/Vol] 4.52 10*6/uL 4.40 - 5.9 0 10*6/uL [facility] WBC (Bld) [#/Vol] 5.4 10*3/uL 3.6 - 10.7 10*3/uL [facility] CBC WITH AUTO DIFFERENTIALon 12-22-2022 Basophils (Bld) [#/Vol] 0.0 10*3/uL Normal 0.0-0.2 [facility] Comment on above: Performed By: #### L [id number] #### Rn Plasma Center: LENORE ESCOBAR ([id number]) [facility] BLOOD BANK ([facility]) [address] [place] [address] Basophils/100 WBC (Bld) 0.7 % Normal 0.0-2.0 [facility] Comment on above: Performed By: #### L [id number] #### Rn Plasma Center: LENORE ESCOBAR ([id number]) [facility] BLOOD [facility] ([facility]) [address] [place] [address] Eosinophils (Bld) [#/Vol] 0.2 10*3/uL Normal 0.0-0.5 [facility] Comment on above: Performed By: #### L [id number] #### Rn Plasma Center: LENORE ESCOBAR ([id number]) [facility] BLOOD [facility] ([facility]) [address] [place] [address] Eosinophils/100 WBC (Bld) 3.4 % Normal 1.0-6.0 [facility] Comment on above: Performed By: #### L [id number] #### Rn Plasma Center: LENORE ESCOBAR ([id number]) [facility] BLOOD [facility] ([facility]) [address] [place] [address] Erythrocyte distribution width (RBC) [Ratio] 14.0 % Normal 11.5-14.5 [facility] Comment on above: Performed By: #### L [id number] #### Rn Plasma Center: LENORE ESCOBAR ([id number]) [facility] BLOOD [facility] ([facility]) [address] [place] [address] ERYTHROCYTE MEAN CORPUSCULAR HEMOGLOBIN CONCENTRATION (G/DL) BY AUTOMATED 33.9 % Normal 32.0-36.0 [facility] Comment on above: Performed By: #### L [id number] #### Rn Plasma Center: LENORE ESCOBAR ([id number]) [facility] BLOOD [facility] ([facility]) [address] [place] [address] Hematocrit (Bld) [Volume fraction] 41.6 % Normal 40.0-52.0 [facility] Comment on above: Performed By: #### L [id number] #### Rn Plasma Center: LENORE ESCOBAR ([id number]) [facility] B[facility]OD [facility] ([facility]) [address] [place] [address] Hemoglobin (Bld) [Mass/Vol] 14.1 g/dL Normal 13.0-18.0 [facility] Comment on above: Performed By: #### L [id number] #### Rn Plasma Center: LENORE ESCOBAR ([id number]) [facility] BLOOD [facility] ([facility]) [address] [place] [address] IMMATURE GRANS (10*3/UL) IN BLOOD BY AUTOMATED COUNT 0.0 10*3/uL Normal <=0.0 [facility] Comment on above: Performed By: #### L [id number] #### Rn Plasma Center: LENORE ESCOBAR ([id number]) [facility] BLOOD [facility] ([facility]) [address] [place] [address] IMMATURE GRANS/100 LEUKOCYTES IN BLOOD BY AUTOMATED COUNT 0.2 % High <=0.0 [facility] Comment on above: Performed By: #### L [id number] #### Rn Plasma Center: LENORE ESCOBAR ([id number]) [facility] BLOOD [facility] ([facility]) [address] [place] [address] Lymphocytes (Bld) [#/Vol] 1.7 10*3/uL Normal 1.0-4.3 [facility] Comment on above: Performed By: #### L [id number] #### Rn Plasma Center: LENORE ESCOBAR ([id number]) [facility] BLOOD [facility] ([facility]) [address] [place] [address] Lymphocytes/100 WBC (Bld) 30.9 % Normal 20.0-40.0 [facility] Comment on above: Performed By: #### L [id number] #### Rn Plasma Center: LENORE ESCOBAR ([id number]) [facility] BLOOD [facility] ([facility]) [address] [place] [address] MCH (RBC) [Entitic mass] 31.2 pg Normal 26.0-34.0 [facility] Comment on above: Performed By: #### L [id number] #### Rn Plasma Center: LENORE ESCOBAR ([id number]) [facility] BLOOD [facility] ([facility]) [address] [place] [address] MCV (RBC) [Entitic vol] 92.0 fL Normal 80.0-98.0 S [facility] Comment on above: Performed By: #### L [id number] #### Rn Plasma Center: LENORE ESCOBAR ([id number]) [facility] BLOOD [facility] ([facility]) [address] [place] [address] Monocytes (Bld) [#/Vol] 0.5 10*3/uL Normal 0.0-0.8 [facility] Comment on above: Performed By: #### L [id number] #### Rn Plasma Center: LENORE ESCOBAR ([id number]) [facility] BLOOD [facility] ([facility]) [address] [place] [address] Monocytes/100 WBC (Bld) 8.8 % Normal 2.0-10.0 [facility] Comment on above: Performed By: #### L [id number] #### Rn Plasma Center: LENORE ESCOBAR ([id number]) [facility] B[facility] ([facility]) [address] [place] [address] Neutrophils (Bld) [#/Vol] 3.0 10*3/uL Normal 1.8-7.0 [facility] Comment on above: Performed By: #### L [id number] #### Rn Plasma Center: LENORE ESCOBAR ([id number]) [facility] BLOOD [facility] ([facility]) [address] [place] [address] Neutrophils/100 WBC (Bld) 56.0 % Normal 40.0-80.0 [facility] Comment on above: Performed By: #### L [id number] #### Rn Plasma Center: LENORE ESCOBAR ([id number]) [facility] BLOOD [facility] ([facility]) [address] [place] [address] Platelet mean volume (Bld) [Entitic vol] 9.1 fL Normal 7.4-12.4 [facility] Comment on above: Result Comment: MPV is a calculated measurement using platelet volume ratio Performed By: #### L [id number] #### Rn Plasma Center: LENORE ESCOBAR ([id number]) [facility] BLOOD [facility] ([facility]) [address] [place] [address] PLATELETS (10*3/UL) IN BLOOD AUTOMATED COUNT 243 10*3/uL Normal 140-440 [facility] Comment on above: Performed By: #### L [id number] #### Rn Plasma Center: LENORE ESCOBAR ([id number]) [facility] B[facility]OD [facility] ([facility]) [address] [place] [address] RBC (Bld) [#/Vol] 4.52 10*6/uL Normal 4.40-5.90 [facility] Comment on above: Performed By: #### L [id number] #### Rn Plasma Center: LENORE ESCOBAR ([id number]) [facility] BLOOD [facility] ([facility]) [address] [place] [address] WBC (Bld) [#/Vol] 5.4 10*3/uL Normal 3.6-10.7 [facility] Comment on above: Performed By: #### L [id number] #### Rn Plasma Center: LENORE ESCOBAR ([id number]) [facility] BLOOD [facility] ([facility]) [address] [place] [address] COMPLETE URINALYSISon 2022 BILIRUBIN, TOTAL PRESENCE IN URINE Negative Normal Negative [facility] Comment on above: Performed By: #### L [id number] #### Rn Plasma Center: LENORE ESCOBAR ([id number]) [facility] BLOOD [facility] ([facility]) [address] [place] [address] Clarity (U) Clear Normal Clear [facility] Comment on above: Performed By: #### L [id number] #### Rn Plasma Center: LENORE ESCOBAR ([id number]) [facility] BLOOD B[facility] ([facility]) [address] [place] [address] Color (U) Light Yellow Normal Lt. Yellow [facility] Comment on above: Performed By: #### L [id number] #### Rn Plasma Center: LENORE ESCOBAR ([id number]) [facility] BLOOD [facility] ([facility]) [address] [place] [address] GLUCOSE (MG/DL) IN URINE Normal Normal Nor mal (<70) [facility] Comment on above: Performed By: #### L [id number] #### Rn Plasma Center: LENORE ESCOBAR ([id number]) [facility] BLOOD [facility] ([facility]) [address] [place] [address] HEMOGLOBIN PRESENCE IN URINE Negative Normal Negative [facility] Comment on above: Performed By: #### L [id number] #### Rn Plasma Center: LENORE ESCOBAR ([id number]) [facility] BLOOD [facility] ([facility]) [address] [place] [address] Ketones Ql (U) Negative Normal Negative [facility] Comment on above: Performed By: #### L [id number] #### Rn Plasma Center: LENORE ESCOBAR ([id number]) [facility] BLOOD [facility] ([facility]) [address] [place] [address] LEUKOCYTE ESTERASE PRESENCE IN URINE BY TEST STRIP Negative Normal Negative [facility] Comment on above: Performed By: #### L [id number] #### Rn Plasma Center: LENORE ESCOBAR ([id number]) [facility] BLOOD [facility] ([facility]) [address] [place] [address] NITRITE PRESENCE IN URINE Negative Normal Negative [facility] Comment on above: Performed By: #### L [id number] #### Rn Plasma Center: LENORE ESCOBAR ([id number]) [facility] BLOOD [facility] ([facility]) [address] [place] [address] pH (U) 5.5 [pH] Normal 5.0-8.0 [facility] Comment on above: Performed By: #### L [id number] #### Rn Plasma Center: LENORE ESCOBAR ([id number]) [facility] [facility] ([facility]) [address] [place] [address] Protein (U) [Mass/Vol] Negative Normal Negative [facility] Comment on above: Performed By: #### L [id number] #### Rn Plasma Center: LENORE ESCOBAR ([id number]) [facility] ([facility]) [address] [place] [address] Specific gravity (U) [Rel density] 1.016 Normal 1.005-1.030 [facility] Comment on above: Performed By: #### L [id number] #### Rn Plasma Center: LENORE ESCOBAR ([id number]) [facility] ([facility]) [address] [place] [address] [place] UROBILINOGEN (MG/DL) IN URINE Normal Normal Normal (0-1) [facility] Comment on above: Performed By: #### L [id number] #### Rn Plasma Center: LENORE ESCOBAR ([id number]) [facility] ([facility]) [address] [place] [address] ED Nursing Noteon 12-22-2022 ED Nursing Note Informed Dr. Rodas s the pt was prescribed Cipro yesterday by Dr. Basilio. Pt had not previously mentioned this to ED providers. Dr. Negron at bedside again speaking with pt. Estefany Dunlap RN 12/22/22 7345 [facility] ED Nursing Note Pt ambulatory to ED3 [...] He states he saw Dr. Perales (per [facility] he went to the office and had a negative UA 12/18 but no record of an actual visit with Dr. Perales) and pt seems upset it was not sent for culture. Per [facility] the pt placed calls to the office/[facility] stating he needed IV abx specifically but was advised this is not indicated for negative UA. He then saw Dr. Basilio in [place] yesterday and had another UA as well [...] of distress noted. Pt negative/irritable during triage. [facility] ED Provider Noteon ED Provider Note EMERGENCY DEPARTMENT ENCOUNTER Pt Name: Corrie Queen Birthdate 1960 Date of evaluation: 12/22/2022 ED Provider: Pacheco Negron MD CHIEF COMPLAINT Chief Complaint Patient presents with Difficulty Urinating Flank Pain History from patient and daughter HISTORY OF PRESENT ILLNESS (Location/Symptom, Timing/Onset, Context/Setting, Quality, Duration, Modifying Factors, Severity) Note limiting factors. I wore appropriate PPE for the entirety of this encounter. HPI Corrie Queen is a 62 y.o. who presents [...] rearrange some schedules to get him in [place]. She was going to call and talk with Corrie. Acute cystitis without hematuria 02/27/2022 Anxiety patrick with surgery Benign neoplasm of pituitary gland and craniopharyngeal duct (pouch) ([facility]) Chest pain, unspecified Chills 05/28/2022 Chronic flank pain Chronic pain Diverticulitis DVT (deep venous thrombosis) ([facility]) 2022 left leg Esophageal reflux Essential hypertension, [...] and unspecified hyperlipidemia Other anterior pituitary disorders ([facility]) Other testicular hypofunction Pituitary tumor Pyelonephritis 12/03/2021 [...] ALLERGIES Meperidine (more content not included)... Normal [facility] LACTIC ACID WITH REFLEXon Lactate [Moles/Vol] 1.2 mmol/L Normal 0.7-2.0 [facility] Comment on above: Performed By: #### L [id number] #### Rn Plasma Center: LENORE ESCOBAR ([id number]) [facility] ([facility]) [address] [place] [address] Laboratory - Chemistry and C hemistry - challengeon 12-22-2022 Lactate [Moles/Vol] 1.2 mmol/L 0.7 - 2. 0 mmol/L [facility] No Panel Informationon 12-22 Interpretation and review of laboratory results Normal [facility] Urinalysis complete panel (U )on 12-22-2022 Bilirubin Ql (U) Negative Negative mg/dL [facility] Clarity (U) Clear Clear [facility] Color (U) Light Yellow Lt. Yellow [facility] Glucose Ql (U) Normal Normal (<70) mg/dL [facility] Hemoglobin Ql (U) Negative Negative mg/dL [facility] Interpretation and review of laboratory results Normal [facility] Ketones (U) [Mass/Vol] Negative Negat bharathi mg/dL [facility] Leukocyte esterase Test strip Ql (U) Negative Negative Irina/uL [facility] Nitrite Ql (U) Negative Negative [facility] pH (U) 5.5 [pH] 5.0 - 8.0 pH [facility] Protein (U) [Mass/Vol] Negative Negat bharathi mg/dL [facility] Specific gravity (U) [Rel density] 1.016 1.005 - 1.030 [facility] Urobilinogen (U) [Mass/Vol] Normal Normal (0-1) mg/dL [facility] 36on 12-21-2022 36 S: Patient spoke wit [...] to do. He has a surgery on Saturday to get out blood clots in his [...] way now since it is with Dr. Basilio. He said he'd rather see him first [...] or awakens from sleep) Protocols used: Flank [id number]-AS Normal [facility] Office Visiton 12-21-2022 Follow-up visit [id number] Flower Queen 1960 M Date Provider Department Center 12/21/2022 [id number] ERICKSON [facility] Family History Adopted: Yes Problem Relation Age of Onset No Known Problems Father Cancer Mother Comments: lung Family Status - Relation Status Age at Father Mother Level of Service:15671 [place] OFFICE/OUTPATIENT ESTABLISHED LOW MDM 20-29 MIN Reason for Visit and Comments: OTHER [Other] - Pain right side back Normal [facility] Progress Noteon 12-21-2022 Progress Note [facility] [address] [facility] [address] Dept: [phone] Dept Loc: [phone] Visit type: Established patient Reason for Visit: [...] rearrange some schedules to get him in [place]. She was going to call and talk with Corrie. 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 Normal [facility] US RETROPERITONEALon 023 US RETROPERITONEAL Patient Name: CORRIE QUEEN : 1960 Exam Date/Time: 12/21/2022 13:05 [...] Electronically Signed Date/Time: 12/21/2022 1:07 PM EDT Normal [facility] US Retroperitoneumon 023 No hydronephrosis or echogenic shadowing renal calculi. Bilateral renal cysts including right parapelvic cyst and left simple cortical cysts. Report Dictated on Electronically Signed By: Jesús Danielson MD Electronically Signed Date/Time: 12/21/2022 1:07 PM EDT [facility] RADIOLOGY SYSTEM Patient Name: CORRIE QUEEN : 1960 Exam Date/Time: 12/21/2022 13:05 [...] upper pole. Bladder: Underdistended and suboptimally assessed. [facility] Jesús Danielson MD - 12/21/2022 [facility] Name: [facility] 1960 [id number] Exam Date/Time: 12/21/2022 13:05 Procedure: US RETROPERITONEAL [...] Electronically Signed Date/Time: 12/21/2022 1:07 PM EDT [facility] Radiology Study observation (narrative) Earnestine Almanzar alth US RetroperitoneumOrdered By : Jesús Danielson on 12-21-2022 [facility] [employer] Work Phone: XR Abdomen Single viewon Gas-filled [...] Electronically Signed Date/Time: 12/21/2022 1:08 PM EDT [facility] [employer] Patient Name: CORRIE QUEEN : 1960 Exam Date/Time: 12/21/2022 12:51 Procedure: XR ABDOMEN 1 VIEW Ordering Provider: BASILIO MICHAEL Reason For Exam: R flank pain ABDOMEN, 1 VIEW. CLINICAL INFORMATION: Right flank pain TECHNIQUE: Supine abdomen, 2 image(s) COMPARISON: Concurrent ultrasound 12/21/2022, CT 09/14/2022 RESULT: See impression. [facility] Jesús Danielson MD - 12/21/2022 Patient Name: CORRIE QUEEN : 1960 Exam Date/Time: 12/21/2022 12:51 [...] Electronically Signed Date/Time: 12/21/2022 1:08 PM EDT [facility] Radiology Study observation (narrative) [facility] XR Abdomen Single viewOrdere d By: Jesús Danielson on 12-21-2022 [facility] [employer] Work Phone: 36on 12-18-2022 36 [email or web address] message sent [place] [phone] Please schedule visi t to discuss. Thanks [facility] 36on 12-17-2022 36 S: Patient spoke wit h [facility] nurse regarding right kidney pain B: Onset [...] call back with new or worsening symptoms. [place] [phone] . Reason for Disposition MODERATE pain (e.g., interferes with normal activities or awakens from sleep) Protocols used: Flank [id number] [facility] 36 Notified Corrie. 36 Urine is completely clear, there is no blood or white blood cells in his urine I am not sure why he is having his pain. This does not look like any type of urinary tract infection. To see urology if he continues to have problems, I have nothing else to offer him at this time. [facility] 36 Pt reported that he was scheduled with urology last week but missed the appointment d/t needing to be seen for the blood clot. Advised him we need to get him in with urology chance after his surgery. UA results on your desk and order pended. Normal [facility] 36 Patient stopped in and said [...] he is having fixed before then. Normal [facility] Urinalysis macro (dipstick) panel (U)on 12-17-2022 Bilirubin, UA Negative [facility] Blood, UA Negative [facility] Glucose, UA Negative [facility] Interpretation and review of laboratory results Normal [facility] Ketones, UA Negative [facility] Leukocytes, UA Negative [facility] Nitrite, UA Negative [facility] pH, UA 6.0 [facility] Protein, UA Negative [facility] Spec Grav, UA 1.030 [facility] Urobilinogen, [facility] 0.2 [facility] ECG 12-LEADon 12-16-2022 ECG 12-LEAD IMPRESSION: Sinus bradycardia Inferior infarct, old Electronically Signed On 12-16-2022 14:01:05 EDT by Alyssa Ag [facility] 36on 12-14-[address] lung screen at this time due to having other health issues that he is dealing with right now. 12/14/22 Normal [facility] BASIC METABOLIC PANELon 11-25 Anion gap [Moles/Vol] 9 mmol/L Normal 3-13 [facility] Comment on above: Performed By: #### L [id number] #### Rn Plasma Center: LENORE ESCOBAR ([id number]) [facility] ([facility]) [address] [place] [address] Calcium [Mass/Vol] 11.2 mg/dL High 8.4-10.4 [facility] Comment on above: Performed By: #### L [id number] #### Rn Plasma Center: LENORE ESCOBAR ([id number]) [facility] ([facility]) [address] [place] [address] Chloride [Moles/Vol] 105 mmol/L Normal 98-107 [facility] Comment on above: Performed By: #### L [id number] #### Rn Plasma Center: LENORE ESCOBAR ([id number]) [facility] [address] [place] [address] CO2 [Moles/Vol] 25 mmol/L Normal 22-30 [facility] Comment on above: Performed By: #### L [id number] #### Rn Plasma Center: LENORE ESCOBAR ([id number]) [facility] ([facility]) [address] [place] [address] Creatinine [Mass/Vol] 1.53 mg/dL High 0.66-1.25 [facility] Comment on above: Performed By: #### L [id number] #### Rn Plasma Center: LENORE ESCOBAR ([id number]) [facility] [address] [place] [address] GLOMERULAR FILTRATION RATE ML/MIN/1.73 SQ M.PREDICTED 51.4 mL/min/1.73m*2 Low >60.0 [facility] Comment on above: Result Comment: Calc ulation based on the Chronic Kidney Disease Epidemiology Collaboration (CKD-EPI) equation refit without adjustment for race Performed By: #### L [id number] #### Rn Plasma Center: LENORE ESCOBAR ([id number]) [facility] [address] [place] [address] [place] Glucose [Mass/Vol] 103 mg/dL High 70-100 [facility] Comment on above: Performed By: #### L [id number] #### Rn Plasma Center: LENORE ESCOBAR ([id number]) [facility] ([facility]) [address] [place] [address] Potassium [Moles/Vol] 5.1 mmol/L Normal 3.5-5.1 [facility] Comment on above: Performed By: #### L [id number] #### Rn Plasma Center: LENORE [id number]) [facility] ([facility]) [address] [place] [address] Sodium [Moles/Vol] 139 mmol/L Normal 135-145 [facility] Comment on above: Performed By: #### L [id number] #### Rn Plasma Center: LENORE ESCOBAR ([id number]) [facility] ([facility]) [address] [place] [address] Urea nitrogen [Mass/Vol] 20 mg/dL Normal 9-20 [facility] Comment on above: Performed By: #### L [id number] #### Rn Plasma Center: LENORE ESCOBAR ([id number]) [facility] ([facility]) [address] [place] [address] BLOOD TYPE AND SCREEN GELon 12-13-2022 ABO GROUPING O Normal [facility] Comment on above: Performed By: #### L [id number] #### Rn Plasma Center: LENORE ESCOBAR ([id number]) [facility] ([facility]) [address] [place] [address] RH TYPE IN BLOOD Positive Normal [facility] Comment on above: Performed By: #### L [id number] #### Rn Plasma Center: LENORE ESCOBAR ([id number]) [facility] ([facility]) [address] [place] [address] CBC (HEMOGRAM)on 12-13-2022 Erythrocyte distribution width (RBC) [Ratio] 15.3 % High 11.5-14.5 [facility] Comment on above: Performed By: #### L [id number] #### Rn Plasma Center: LENORE ESCOBAR ([id number]) [facility] ([facility]) [address] [place] [address] ERYTHROCYTE MEAN CORPUSCULAR HEMOGLOBIN CONCENTRATION (G/DL) BY AUTOMATED 33.2 % Normal 32.0-36.0 [facility] Comment on above: Performed By: #### L [id number] #### Rn Plasma Center: LENORE ESCOBAR ([id number]) [facility]) [address] [place] [address] Hematocrit (Bld) [Volume fraction] 43.8 % Normal 40.0-52.0 [facility] Comment on above: Performed By: #### L [id number] #### Rn Plasma Center: LENORE ESCOBAR ([id number]) [facility] ([facility]) [address] [place] [address] Hemoglobin (Bld) [Mass/Vol] 14.5 g/dL Normal 13.0-18.0 [facility] Comment on above: Performed By: #### L [id number] #### Rn Plasma Center: LENORE ESCOBAR ([id number]) [facility] ([facility]) [address] [place] [address] MCH (RBC) [Entitic mass] 30.9 pg Normal 26.0-34.0 [facility] Comment on above: Performed By: #### L [id number] #### Rn Plasma Center: LENORE ESCOBAR ([id number]) [facility] ([facility]) [address] [place] [address] MCV (RBC) [Entitic vol] 92.8 fL Normal 80.0-98.0 [facility] Comment on above: Performed By: #### L [id number] #### Rn Plasma Center: LENORE ESCOBAR ([id number]) [facility] ([facility]) [address] [place] [address] Platelet mean volume (Bld) [Entitic vol] 7.7 fL Normal 7.4-12.4 [facility] Comment on above: Performed By: #### L [id number] #### Rn Plasma Center: LENORE ESCOBAR ([id number]) [facility] ([facility]) [address] [place] [address] [place] PLATELETS (10*3/UL) IN BLOOD AUTOMATED COUNT 235 10*3/uL Normal 140-440 [facility] Comment on above: Performed By: #### L [id number] #### Rn Plasma Center: LENORE ESCOBAR ([id number]) [facility] ([facility]) [address] [place] [address] RBC (Bld) [#/Vol] 4.71 10*6/uL Normal 4.40-5.90 [facility] Comment on above: Performed By: #### L [id number] #### Rn Plasma Center: LENORE ESCOBAR ([id number]) [facility] ([facility]) [address] [place] [address] WBC (Bld) [#/Vol] 5.5 10*3/uL Normal 3.6-10.7 [facility] Comment on above: Performed By: #### L [id number] #### Rn Plasma Center: LENORE ESCOBAR ([id number]) [facility] ([facility]) [address] [place] [address] PREPROCINSon 12-13-2022 PREPROCINS Medication List Accurate as [...] your scheduled surgery time. Please bring your [facility] Surgical folder and medication list with you day of surgery. We encourage you to write down any questions you may have for the surgeon, anesthesiologist, or other members of the surgical team and bring it with you the day of surgery. Please bring photo ID and insurance information. WAREHOUSE SHIPPING RECEIVING CLERK AND PARKING IN THE MAIN DECK ARE [...] SAME DAY DESK AND CHECK IN. Normal [facility] 36on 12-12-2022 36 SURGERY: LEFT ILIOFEMORAL DVT THROMBECTOMY AND STENTING 1 DATE OF SURGERY: 12/25/2022 10:30 AM PRE TESTIN12/13/2022 10:00 AM AUTH #: [id number] CARDIAC CLEARANCE NOT NEEDED POST OP OR OV: 01/07/2023 2:45 PM MEDS TO HOLD: NONE PT STATES NOT TAKING FUROSEMIDE MEDS TO CONTINUE: XARELTO DO NOT STOP [facility] 36 Noted and thank you. [facility] 36 Patient is currently scheduled for: Left Iliofemoral Deep Vein Thrombosis Thrombectomy & Stenting on 11/2722 at 1:30 pm. Patient would like to speak with Dr. Arauz in regards to his case waiting until 12/21/22. He stated he does not understand why this is not being done sooner. Patient can be reached at [phone] [facility] No Panel Informationon 12-11 Occlusive subacute DVT [...] to bowel gas. Visualized segments appear patent. Machine Ii Cutter Details A conroy scale, color Doppler imaging and spectral Doppler analysis ultrasound was performed. During the study longitudinal and transverse views were obtained. Pulsed wave doppler was performed. The exam was performed with the patient in the supine position. Overall the study quality was adequate. Study was technically difficult due to: bowel gas. CV CPACS Office Visiton 12-10-2022 Follow-up visit [id number] Flower Queen 1960 M Date Provider Department Center 12/10/2022 [id number] ARAUZ [facility] None Family History Adopted: Yes Problem Relation Age of Onset No Known Problems Father Cancer Mother Comments: lung Family Status - Relation Status Age at Father Mother Level of Service:96672 MT OFFICE/OUTPATIENT ESTABLISHED MOD MDM 30-39 MIN Reason for Visit and Comments: Follow-up [365797] - [facility] 12/07 ED follow up, possible LLE thrombectomy candidate (Per Fabby/bridal sales consultant surgeon) [facility] Progress Noteon 12-10-2022 Progress Note Chart reviewed of ED follow up Seen in [facility] ED on 12/07/2022 Reason: Deep vein thrombosis [...] 12/09/[address] Davonte SANDERSON Vascular Surgery. [facility] Progress Note Vascular Surgery Office Visit Chief Complaint Patient presents with Follow-up [facility] 12/07 ED follow up, possible LLE thrombectomy candidate (Per [employer]by/bridal sales consultant surgeon) HISTORY OF PRESENT ILLNESS: The patient [...] rearrange some schedules to get him in [place]. She was going to call and talk with Corrie. Acute cystitis without hematuria 02/27/2022 Benign neoplasm [...] Transportation (Medical): No (more content not included)... Normal [facility] ED Nursing Noteon 12-07-2022 ED Nursing Note Surgery resident at bedside. Lorena Castillo RN 12/07/22 1423 [facility] ED Nursing Note Vascular at bedside. Lorena Castillo RN 12/07/22 1333 [facility] ED Nursing Note Pt ambulated to restroom with steady and even gait. Lorena Castillo RN 12/07/22 1319 [facility] ED Nursing Note Report from GARY Becerril. Lorena Castillo RN 12/07/22 1311 [facility] ED Nursing Note Bed: 06 Expected date: Expected time: Means of arrival: Comments: Triage Munira Mcgregor RN 12/07/22 0987 [facility] ED Provider Noteon ED Provider Note Emergency Department Encounter [facility] EMERGENCY DEPT Patient: Corrie Queen : 1960 Date of Evaluation: 12/07/2022 ED Supervising Physician: Yolanda Patel DO I independently examined and evaluated Corrie Queen. This will serve as my Supervisory note and shared attestation. I did perform a substantive portion of the visit including all aspects of the Medical Decision Making. I wore appropriate PPE for the entirety of this encounter. In brief, Corrie Queen is a 62 y.o. that presents [...] [employer] Yolanda Patel DO 12/07/22 1809 [facility] ED Provider Note EMERGENCY DEPARTMENT ENCOUNTER Pt Name: Corrie Queen Birthdate 1960 Date of evaluation: 12/07/2022 [...] for the entirety of this encounter. HPI Corrie Queen is a 62 y.o. who presents to the emergency department complaining of worsening pain and swelling in his LLE. Patient reports that he was seen in September and diagnosed with DVTs throughout his LLE. Patient was placed on outpatient Xarelto and instructed to follow-up. Patient was in [place] this last week when the pain and swelling increased. He reported to the ED in [place] at which time he had an EKG and another ultrasound of his leg showing that the clots were still there. Patient arrived back to [place] last night and states that he spoke [...] rearrange some schedules to get him in [place]. She was going to call and talk with Corrie. Acute cystitis without hematuria 02/27/2022 Benign neoplasm [...] tablet Rickey (more content not included)... Normal [facility] 36on 12-03-2022 36 I called pt to offer OV with Dr. Arauz today for extensive LLE DVT extending to iliac vein. Pt is in [place] and is in severe pain and has extreme swelling where his leg is twice the size. I told him to go to ED down there in [place] and he declined. He states he will go to the [facility] ED in [place] when he returns on Saturday. [facility] 36 S: Patient spoke wit h CAC nurse regarding acute deep vein thrombosis of [...] tells this nurse I am at the [facility] in [place] and will not return to [place] until Saturday. Again, highly encouraged patient to seek evaluation in an emergency room in [place] per the physician's recommendations. Discussed blood clots [...] vein thrombosis, pulmonary embolism) Protocols used: Leg [id number]-BR [facility] No Panel Informationon 11-14 Acute extensive DVT [...] on 10/15/2022. No change from previous exam. Machine Ii Cutter Details A conroy scale, color Doppler imaging, [...] [#/Vol] 0.1 10*3/uL 0.0 - 0.2 10*3/uL [facility] Basophils/100 WBC (Bld) 1.0 % 0.0 - 2.0 % [facility] Eosinophils (Bld) [#/Vol] 0.4 10*3/uL 0. 0 - 0.5 10*3/uL [facility] Eosinophils/100 WBC (Bld) 4.9 % 1.0 - 6.0 % [facility] Erythrocyte distribution width (RBC) [Ratio] 13.0 % 11.5 - 14.5 % [facility] Hematocrit (Bld) [Volume fraction] 39.0 % Low 40.0 - 52.0 % [facility] Hemoglobin (Bld) [Mass/Vol] 13.5 g/dL 13.0 - 18.0 g/dL [facility] Interpretation and review of laboratory results Abnormal [facility] th Lymphocytes (Bld) [#/Vol] 2.0 10*3/uL 1. 0 - 4.3 10*3/uL [facility] Lymphocytes/100 WBC (Bld) 24.5 % 20 .0 - 40.0 % [facility] MCH (RBC) [Entitic mass] 31.0 pg 26. 0 - 34.0 pg [facility] MCHC (RBC) [Mass/Vol] 34.6 % 32.0 - 36.0 % [facility] MCV (RBC) [Entitic vol] 89.6 fL 80.0 - 98.0 fL [facility] Monocytes (Bld) [#/Vol] 0.8 10*3/uL 0.0 - 0.8 10*3/uL [facility] Monocytes/100 WBC (Bld) 10.4 % High 2.0 - 10.0 % [facility] Neutrophils (Bld) [#/Vol] 4.7 10*3/uL 1. 8 - 7.0 10*3/uL [facility] Neutrophils/100 WBC (Bld) 59.2 % 40 .0 - 80.0 % [facility] Nucleated RBC/100 WBC (Bld) [Ratio] 0.0 % [facility] Platelet mean volume (Bld) [Entitic vol] 7.0 fL Low 7.4 - 12.4 fL [facility] Platelets (Bld) [#/Vol] 277 10*3/uL 140 - 440 10*3/uL [facility] RBC (Bld) [#/Vol] 4.36 10*6/uL Low 4.40 - 5.9 0 10*6/uL [facility] WBC (Bld) [#/Vol] 8.0 10*3/uL 3.6 - 10.7 10*3/uL [facility] Comprehensive metabolic 1998 panelon 10-16-2022 Albumin [Mass/Vol] 3.9 g/dL 3.5 - 5.0 g/dL [facility] ALP [Catalytic activity/Vol] 54 U/L 38 - 126 U/L [facility] ALT [Catalytic activity/Vol] 11 U/L 0 - 49 U/L [facility] Anion gap [Moles/Vol] 7 mmol/L 3 - 13 mmol/L [facility] AST [Catalytic activity/Vol] 20 U/L 15 - 46 U/L [facility] Bilirubin [Mass/Vol] 0.5 mg/dL 0.2 - 1 .3 mg/dL [facility] Calcium [Mass/Vol] 9.9 mg/dL 8.4 - 10. 4 mg/dL [facility] Chloride [Moles/Vol] 104 mmol/L 98 - 10 7 mmol/L [facility] CO2 [Moles/Vol] 24 mmol/L 22 - 30 mmol/L [facility] Creatinine [Mass/Vol] 1.03 mg/dL 0.66 - 1.25 mg/dL [facility] GFR/1.73 sq M.predicted MDRD (S/P/Bld) [Vol rate/Area] 82.6 mL/min/{1.73_m2} - PINF [facility] Comment on above: Calculation based on the Chronic Kidney Disease Epidemiology Collaboration (CKD-EPI) equation refit without adjustment for race Glucose [Mass/Vol] 95 mg/dL 70 - 100 mg/dL [facility] Interpretation and review of laboratory results Normal [facility] Potassium [Moles/Vol] 3.9 mmol/L 3.5 - 5.1 mmol/L [facility] Protein [Mass/Vol] 7.1 g/dL 6.3 - 8.2 g/dL [facility] Sodium [Moles/Vol] 135 mmol/L 135 - 145 mmol/L [facility] Urea nitrogen [Mass/Vol] 15 mg/dL 9 - 20 mg/dL [facility] CBC W Auto Differential pane l (Bld)Ordered By: Jaswant Mendoza on 10-15-2022 Basophils (Bld) [#/Vol] 0.1 10*3/uL 0.0 - 0.2 10*3/uL [facility] Basophils/100 WBC (Bld) 1.1 % 0.0 - 2.0 % [facility] Eosinophils (Bld) [#/Vol] 0.4 10*3/uL 0. 0 - 0.5 10*3/uL [facility] Eosinophils/100 WBC (Bld) 4.6 % 1.0 - 6.0 % [facility] Erythrocyte distribution width (RBC) [Ratio] 13.2 % 11.5 - 14.5 % [facility] Hematocrit (Bld) [Volume fraction] 38.8 % Low 40.0 - 52.0 % [facility] Hemoglobin (Bld) [Mass/Vol] 13.3 g/dL 13.0 - 18.0 g/dL [facility] Interpretation and review of laboratory results Abnormal [facility] Lymphocytes (Bld) [#/Vol] 1.3 10*3/uL 1. 0 - 4.3 10*3/uL [facility] Lymphocytes/100 WBC (Bld) 14.7 % Low 20 .0 - 40.0 % [facility] MCH (RBC) [Entitic mass] 30.9 pg 26. 0 - 34.0 pg [facility] MCHC (RBC) [Mass/Vol] 34.4 % 32.0 - 36.0 % [facility] MCV (RBC) [Entitic vol] 89.9 fL 80.0 - 98.0 fL [facility] Monocytes (Bld) [#/Vol] 1.0 10*3/uL High 0.0 - 0.8 10*3/uL [facility] Monocytes/100 WBC (Bld) 11.0 % High 2.0 - 10.0 % [facility] Neutrophils (Bld) [#/Vol] 6.1 10*3/uL 1. 8 - 7.0 10*3/uL [facility] Neutrophils/100 WBC (Bld) 68.6 % 40 .0 - 80.0 % [facility] Nucleated RBC/100 WBC (Bld) [Ratio] 0.0 % [facility] Platelet mean volume (Bld) [Entitic vol] 6.9 fL Low 7.4 - 12.4 fL [facility] Platelets (Bld) [#/Vol] 272 10*3/uL 140 - 440 10*3/uL [facility] RBC (Bld) [#/Vol] 4.32 10*6/uL Low 4.40 - 5.9 0 10*6/uL [facility] WBC (Bld) [#/Vol] 8.8 10*3/uL 3.6 - 10.7 10*3/uL [facility] CT Head WO contraston [address] examination of the brain. Report Dictated on Electronically Signed By: Noe Medina DO Electronically Signed Date/Time: 10/15/2022 2:57 PM T [facility] Patient Name: CORRIE QUEEN : 1960 Exam Date/Time: 10/15/2022 13:34 [...] are unremarkable. The paranasal sinuses are clear. [facility] Noe Medina DO - 10/15/2022 Patient Name: CORRIE QUEEN : 1960 Exam Date/Time: 10/15/2022 13:34 [...] Electronically Signed Date/Time: 10/15/2022 2:57 PM EDT [facility] Radiology Study observation (narrative) [facility] CT Head WO contrastOrdered B y: Noe Medina on 10-15-2022 [facility] [employer] Work Phone: Comprehensive metabolic 1998 panelon 10-15-2022 Albumin [Mass/Vol] 3.8 g/dL 3.5 - 5.0 g/dL [facility] ALP [Catalytic activity/Vol] 54 U/L 38 - 126 U/L [facility] ALT [Catalytic activity/Vol] 11 U/L 0 - 49 U/L [facility] Anion gap [Moles/Vol] 8 mmol/L 3 - 13 mmol/L [facility] AST [Catalytic activity/Vol] 19 U/L 15 - 46 U/L [facility] Bilirubin [Mass/Vol] 0.5 mg/dL 0.2 - 1 .3 mg/dL [facility] Calcium [Mass/Vol] 9.8 mg/dL 8.4 - 10. 4 mg/dL [facility] Chloride [Moles/Vol] 104 mmol/L 98 - 10 7 mmol/L [facility] CO2 [Moles/Vol] 26 mmol/L 22 - 30 mmol/L [facility] Creatinine [Mass/Vol] 1.06 mg/dL 0.66 - 1.25 mg/dL [facility] GFR/1.73 sq M.predicted MDRD (S/P/Bld) [Vol rate/Area] 79.8 mL/min/{1.73_m2} - PINF [facility] Comment on above: Calculation based on the Chronic Kidney Disease Epidemiology Collaboration (CKD-EPI) equation refit without adjustment for race Glucose [Mass/Vol] 105 mg/dL High 70 - 100 mg/dL [facility] Interpretation and review of laboratory results Abnormal [facility] Potassium [Moles/Vol] 4.1 mmol/L 3.5 - 5.1 mmol/L [facility] Protein [Mass/Vol] 7.1 g/dL 6.3 - 8.2 g/dL [facility] Sodium [Moles/Vol] 137 mmol/L 135 - 145 mmol/L [facility] Urea nitrogen [Mass/Vol] 16 mg/dL 9 - 20 mg/dL [facility] Laboratory - Chemistry and C hemistry - challengeon 10-15-2022 Glucose [Mass/Vol] 98 mg/dL 70 - 100 mg/dL [facility] No Panel Informationon 10-15 Interpretation and review of laboratory results Normal [facility] Performed by: [facility], [address] [place] [id number] CLIA ID: [id number] [facility] Acute extensive DVT in the left lower [...] right common femoral vein is normally compressible. [employer] Cutter Details A conroy scale, color Doppler imaging [...] [#/Vol] 0.0 10*3/uL 0.0 - 0.2 10*3/uL [facility] Basophils/100 WBC (Bld) 0.6 % 0.0 - 2.0 % [facility] Eosinophils (Bld) [#/Vol] 0.6 10*3/uL High 0. 0 - 0.5 10*3/uL [facility] Eosinophils/100 WBC (Bld) 7.1 % High 1.0 - 6.0 % [facility] Erythrocyte distribution width (RBC) [Ratio] 13.4 % 11.5 - 14.5 % [facility] Hematocrit (Bld) [Volume fraction] 37.0 % Low 40.0 - 52.0 % [facility] Hemoglobin (Bld) [Mass/Vol] 12.7 g/dL Low 13.0 - 18.0 g/dL [facility] Interpretation and review of laboratory results Abnormal [facility] th Lymphocytes (Bld) [#/Vol] 2.1 10*3/uL 1. 0 - 4.3 10*3/uL [facility] Lymphocytes/100 WBC (Bld) 26.2 % 20 .0 - 40.0 % [facility] MCH (RBC) [Entitic mass] 31.2 pg 26. 0 - 34.0 pg [facility] MCHC (RBC) [Mass/Vol] 34.3 % 32.0 - 36.0 % [facility] MCV (RBC) [Entitic vol] 90.9 fL 80.0 - 98.0 fL [facility] Monocytes (Bld) [#/Vol] 0.9 10*3/uL High 0.0 - 0.8 10*3/uL [facility] Monocytes/100 WBC (Bld) 11.1 % High 2.0 - 10.0 % [facility] Neutrophils (Bld) [#/Vol] 4.5 10*3/uL 1. 8 - 7.0 10*3/uL [facility] Neutrophils/100 WBC (Bld) 55.0 % 40 .0 - 80.0 % [facility] Nucleated RBC/100 WBC (Bld) [Ratio] 0.0 % [facility] Platelet mean volume (Bld) [Entitic vol] 7.8 fL 7.4 - 12.4 fL [facility] Platelets (Bld) [#/Vol] 255 10*3/uL 140 - 440 10*3/uL [facility] RBC (Bld) [#/Vol] 4.08 10*6/uL Low 4.40 - 5.9 0 10*6/uL [facility] WBC (Bld) [#/Vol] 8.2 10*3/uL 3.6 - 10.7 10*3/uL [facility] Comprehensive metabolic 1998 panelon 10-14-2022 Albumin [Mass/Vol] 3.7 g/dL 3.5 - 5.0 g/dL [facility] ALP [Catalytic activity/Vol] 53 U/L 38 - 126 U/L [facility] ALT [Catalytic activity/Vol] 11 U/L 0 - 49 U/L [facility] Anion gap [Moles/Vol] 8 mmol/L 3 - 13 mmol/L [facility] AST [Catalytic activity/Vol] 18 U/L 15 - 46 U/L [facility] Bilirubin [Mass/Vol] 0.4 mg/dL 0.2 - 1 .3 mg/dL [facility] Calcium [Mass/Vol] 9.9 mg/dL 8.4 - 10. 4 mg/dL [facility] Chloride [Moles/Vol] 105 mmol/L 98 - 10 7 mmol/L [facility] CO2 [Moles/Vol] 26 mmol/L 22 - 30 mmol/L [facility] Creatinine [Mass/Vol] 1.15 mg/dL 0.66 - 1.25 mg/dL [facility] GFR/1.73 sq M.predicted MDRD (S/P/Bld) [Vol rate/Area] 72.4 mL/min/{1.73_m2} - PINF [facility] Comment on above: Calculation based on the Chronic Kidney Disease Epidemiology Collaboration (CKD-EPI) equation refit without adjustment for race Glucose [Mass/Vol] 90 mg/dL 70 - 100 mg/dL [facility] Interpretation and review of laboratory results Normal [facility] Potassium [Moles/Vol] 4.4 mmol/L 3.5 - 5.1 mmol/L [facility] Protein [Mass/Vol] 6.4 g/dL 6.3 - 8.2 g/dL [facility] Sodium [Moles/Vol] 138 mmol/L 135 - 145 mmol/L [facility] Urea nitrogen [Mass/Vol] 17 mg/dL 9 - 20 mg/dL [facility] - Chemistry and C hemistry - challengeon 10-14-2022 Parathyrin.intact [Mass/Vol] 39.0 pg/mL 7.5 - 53.5 pg/mL [facility] Parathyrin.intact [Mass/Vol] on 10-14-2022 Interpretation and review of laboratory results Normal [facility] Basic metabolic 1998 panelon 10-12-2022 Anion gap [Moles/Vol] 12 mmol/L 3 - 13 mmol/L [facility] Calcium [Mass/Vol] 11.1 mg/dL High 8.4 - 10. 4 mg/dL [facility] Chloride [Moles/Vol] 104 mmol/L 98 - 10 7 mmol/L [facility] CO2 [Moles/Vol] 21 mmol/L Low 22 - 30 mmol/L [facility] Creatinine [Mass/Vol] 1.45 mg/dL High 0.66 - 1.25 mg/dL [facility] GFR/1.73 sq M.predicted MDRD (S/P/Bld) [Vol rate/Area] 54.8 mL/min/{1.73_m2} Low - PINF [facility] Comment on above: Calculation based on the Chronic Kidney Disease Epidemiology Collaboration (CKD-EPI) equation refit without adjustment for race Glucose [Mass/Vol] 121 mg/dL High 70 - 100 mg/dL [facility] Interpretation and review of laboratory results Abnormal [facility] Potassium [Moles/Vol] 4.8 mmol/L 3.5 - 5.1 mmol/L [facility] Sodium [Moles/Vol] 137 mmol/L 135 - 145 mmol/L [facility] Urea nitrogen [Mass/Vol] 18 mg/dL 9 - 20 mg/dL [facility] CBC W Auto Differential pane l (Bld)Ordered By: Won Valencia on 10-12-2022 Basophils (Bld) [#/Vol] 0.1 10*3/uL 0.0 - 0.2 10*3/uL [facility] Basophils/100 WBC (Bld) 0.7 % 0.0 - 2.0 % [facility] Eosinophils (Bld) [#/Vol] 0.3 10*3/uL 0. 0 - 0.5 10*3/uL [facility] Eosinophils/100 WBC (Bld) 3.0 % 1.0 - 6.0 % [facility] Erythrocyte distribution width (RBC) [Ratio] 13.0 % 11.5 - 14.5 % [facility] Hematocrit (Bld) [Volume fraction] 43.0 % 40.0 - 52.0 % [facility] Hemoglobin (Bld) [Mass/Vol] 14.6 g/dL 13.0 - 18.0 g/dL [facility] Immature granulocytes (Bld) [#/Vol] 0.1 10*3/uL High NINF - 0.0 10*3/uL [facility] Immature granulocytes/100 WBC (Bld) 0.6 % High NINF - 0.0 % [facility] Interpretation and review of laboratory results Abnormal [facility] th Lymphocytes (Bld) [#/Vol] 1.6 10*3/uL 1. 0 - 4.3 10*3/uL [facility] Lymphocytes/100 WBC (Bld) 16.4 % Low 20 .0 - 40.0 % [facility] MCH (RBC) [Entitic mass] 31.0 pg 26. 0 - 34.0 pg [facility] MCHC (RBC) [Mass/Vol] 34.0 % 32.0 - 36.0 % [facility] MCV (RBC) [Entitic vol] 91.3 fL 80.0 - 98.0 fL [facility] Monocytes (Bld) [#/Vol] 0.9 10*3/uL High 0.0 - 0.8 10*3/uL [facility] Monocytes/100 WBC (Bld) 9.3 % 2.0 - 10.0 % [facility] Neutrophils (Bld) [#/Vol] 6.9 10*3/uL 1. 8 - 7.0 10*3/uL [facility] Neutrophils/100 WBC (Bld) 70.0 % 40 .0 - 80.0 % [facility] Platelet mean volume (Bld) [Entitic vol] 9.0 fL 7.4 - 12.4 fL [facility] Comment on above: MPV is a calculated measurement using platelet volume ratio Platelets (Bld) [#/Vol] 273 10*3/uL 140 - 440 10*3/uL [facility] RBC (Bld) [#/Vol] 4.71 10*6/uL 4.40 - 5.9 0 10*6/uL [facility] WBC (Bld) [#/Vol] 9.9 10*3/uL 3.6 - 10.7 10*3/uL [facility] - Chemistry and C hemistry - challengeon 10-12-2022 Lactate [Moles/Vol] 1.2 mmol/L 0.7 - 2. 0 mmol/L [facility] CK [Catalytic activity/Vol] 54 U/L 30 - 170 U/L [facility] No Panel Informationon 10-12 Positive for DVT throughout the left lower extremity. These findings were discussed with physician/provider PACHECO NEGRON by Secure Chat on 10/12/2022 at 3:16 PM EDT. Report Dictated on Electronically Signed By: Chan Woodard MD Electronically Signed Date/Time: 10/12/2022 3:20 PM EDT [facility] Patient Name: CORRIE QUEEN : 1960 Exam Date/Time: 10/12/2022 14:37 Procedure: VASC US LOWER EXTREMITY VENOUS DUPLEX LEFT Ordering [...] right common femoral vein is normally compressible. [facility] Chan Woodard M D - 10/12/2022 Patient Name: CORRIE QUEEN : 1960 Exam Date/Time: 10/12/2022 14:37 Procedure: VASC US LOWER EXTREMITY VENOUS DUPLEX LEFT Ordering [...] Electronically Signed Date/Time: 10/12/2022 3:20 PM EDT [facility] Interpretation and review of laboratory results Normal [facility] XR Tibia and Fibula - left 2 Viewson 10-12-2022 No acute osseous abnormality. Report Dictated on Electronically Signed By: Jesús Danielson MD Electronically Signed Date/Time: 10/12/2022 3:24 PM EDT [facility] [employer] Patient Name: CORRIE QUEEN : 1960 Exam Date/Time: 10/12/2022 14:08 Procedure: XR TIBIA FIBULA 2 VIEWS LEFT Ordering Provider: NEGRON NICHOLAS Reason For Exam: PAIN EXAMINATION: XR TIBIA FIBULA 2 VIEWS LEFT HISTORY: PAIN. TECHNIQUE: XR TIBIA FIBULA 2 VIEWS LEFT COMPARISON: None available RESULT: No acute fracture or malalignment. Enthesophyte of the quadriceps and. No radiopaque foreign body or soft tissue gas. Vascular calcifications. [facility] Jesús Danielson MD - 10/12/2022 Patient Name: CORRIE QUEEN : 1960 Exam Date/Time: 10/12/2022 14:08 [...] Electronically Signed Date/Time: 10/12/2022 3:24 PM EDT [facility] Radiology Study observation (narrative) [facility] XR Tibia and Fibula - left 2 ViewsOrdered By: Jesús Danileson on 10-12-2022 [facility] Work Phone: Urinalysis macro (dipstick) panel (U)on 09-13-2022 Bilirubin, UA Negative [facility] Blood, UA Trace [facility] Glucose, UA Negative [facility] Interpretation and review of laboratory results Abnormal [facility] Ketones, UA Negative [facility] Leukocytes, UA Moderate [facility] Nitrite, UA Negative [facility] pH, UA 6.0 [facility] Protein, UA Negative [facility] Spec Grav, UA 1.030 [facility] Urobilinogen, UA 0.2 [facility] alth [facility] Bacteria identified Cx Nom ( U)on 08-20-2022 Interpretation and review of laboratory results Abnormal [facility] Urine culture (clean catch)o n 08-20-2022 Bacteria identified Cx Nom (U) SEE NOTE Abnormal [facility] Comment on above: CULTURE, URINE, ROUTINE Micro Number: [id number] Test Status: Final Specimen Source: Urine, clean [...] 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 Urinalysis macro (dipstick) panel (U)Ordered By: Nelli Lama on 08-17-2022 Bilirubin, UA Negative [facility] [place] [facility] Blood, UA Moderate [facility] Comment on above: non-hemolyzed Clarity (U) Slightly Cloudy Abnormal Clear [facility] Color (U) Light Yellow Lt. Yellow [facility] Glucose, UA Negative [facility] Interpretation and review of laboratory results Abnormal [facility] Ketones, UA Trace [facility] Leukocytes, UA Moderate [facility] [place] [facility] Nitrite, UA Negative [facility] pH, UA 6.0 [facility] Protein, UA Trace [facility] Spec Grav, UA 1.015 [facility] Urob[facility], UA 0.2 [facility] Urinalysis macro (dipstick) panel (U)on 05-17-2022 Bilirubin, UA Negative [facility] [place] [facility] Blood, UA Trace [facility] Glucose, UA Negative [facility] Interpretation and review of laboratory results Abnormal [facility] [place] [facility] Ketones, UA Negative [facility] Leukocytes, UA Trace [facility] [place] [facility] th Nitrite, UA Negative [facility] pH, UA 6.5 [facility] [place] [facility] Protein, UA Negative [facility] Spec Grav, UA 1.020 [facility] Urobilinogen, UA 0.2 [facility] Urinalysis macro (dipstick) panel (U)on 03-06-2022 Bilirubin, UA Negative [facility] [place] [facility] Blood, UA Negative [facility] Glucose, UA Negative [facility] Ketones, UA Negative [facility] Leukocytes, UA Negative [facility] [place] [facility] th Nitrite, UA Negative [facility] pH, UA 5.0 [facility] [place] [facility] Protein, UA Negative [facility] Spec Grav, UA 1.020 [facility] [place] [facility] Urobilinogen, UA 0.2 [facility] alth [facility] Basic Metabolic Panelon 11-25 Calcium [Mass/Vol] 9.5 mg/dL Normal 8.4-10.4 [facility] Comment on above: Performed By: #### H EMDF, TSH5, LIPD2, CMP3M #### [facility] [address] [place] [address] Anion gap [Moles/Vol] 7 mmol/L Normal 3-13 [facility] Comment on above: Performed By: #### H EMDF, TSH5, LIPD2, CMP3M #### [facility] [address] [place] [address] CO2 [Moles/Vol] 22 mmol/L Normal 22-30 [facility] Comment on above: Performed By: #### H EMDF, TSH5, LIPD2, CMP3M #### [facility] [address] [place] [address] Creatinine [Mass/Vol] 1.01 mg/dL Normal 0.52-1.25 [facility] Comment on above: Performed By: #### H EMDF, TSH5, LIPD2, CMP3M #### [facility] [address] [place] [address] GFR/1.73 sq M.predicted among blacks MDRD (S/P/Bld) [Vol rate/Area] mL/min/{1.73_m2} Normal >60 [facility] Comment on above: Performed By: #### H EMDF, TSH5, LIPD2, CMP3M #### [facility] [address] [place] [address] GFR/1.73 sq M.predicted among non-blacks MDRD (S/P/Bld) [Vol rate/Area] 80.3 mL/min/{1.73_m2} Normal >60 [facility] Comment on above: Result Comment: KDIG [...] #### H EMDF, TSH5, LIPD2, CMP3M #### [facility] [address] [place] [address] Glucose [Mass/Vol] 101 mg/dL High 70-100 [facility] Comment on above: Performed By: #### H EMDF, TSH5, LIPD2, CMP3M #### [facility] [address] [place] [address] Urea nitrogen [Mass/Vol] 21 mg/dL High 7-17 [facility] Comment on above: Performed By: #### H EMDF, TSH5, LIPD2, CMP3M #### [facility] [address] [place] [address] Chloride [Moles/Vol] 107 mmol/L Normal 98-107 [facility] Comment on above: Performed By: #### H EMDF, TSH5, LIPD2, CMP3M #### [facility] [address] [place] [address] Potassium [Moles/Vol] 3.9 mmol/L Normal 3.5-5.1 [facility] Comment on above: Performed By: #### H EMDF, TSH5, LIPD2, CMP3M #### [facility] [address] [place] [address] Sodium [Moles/Vol] 135 mmol/L Normal 135-145 [facility] Comment on above: Performed By: #### H EMDF, TSH5, LIPD2, CMP3M #### [facility] [address] [place] [address] Basic Metabolic Panel w/ Ref rolanda to MGon 12-06-2021 Anion gap [Moles/Vol] 7 mmol/L 3 - 13 mmol/L [facility] Work Phone: Calcium [Mass/Vol] 9.5 mg/dL 8.4 - 10. 4 mg/dL [facility] Work Phone: [phone] Chloride [Moles/Vol] 107 mmol/L 98 - 10 7 mmol/L [employer] Work Phone: CO2 [Moles/Vol] 22 mmol/L 22 - 30 mmol/L [employer] Work Phone: Creatinine [Mass/Vol] 1.01 mg/dL 0.52 - 1.25 mg/dL [employer] Work Phone: eGFR mL/min 60 - P INF mL/min [facility] Work Phone: EGFR IF NonAfrican Citizen Of [place] 80.3 mL/min 60 - PINF mL/min [employer] Work Phone: [phone] Comment on above: KDIGO guidelines pro vide [...] 101 mg/dL High 70 - 100 mg/dL [facility] Work Phone: [phone] Interpretation and review of laboratory results Abnormal [employer] Work Phone: Potassium [Moles/Vol] 3.9 mmol/L 3.5 - 5.1 mmol/L [employer] Work Phone: Sodium [Moles/Vol] 135 mmol/L 135 - 145 mmol/L [employer] Work Phone: [phone] Urea nitrogen (BldV) [Mass/Vol] 21 mg/dL High 7 - 17 mg/dL [facility] Work Phone: Test Performed by [facility], [address], [place], [place] [address] [facility] Work Phone: [phone] CBC with Auto Differentialon 12-06-2021 Absolute Baso # 0.1 10*3/uL 0 - 0.2 10*3/uL [facility] Work Phone: 1 Absolute Neut # 4.6 10*3/uL 1.8 - 7 10*3/uL [facility] Work Phone: Basophils/100 WBC (Bld) 0.9 % 0 - 2 % [facility] Work Phone: Eosinophils (Bld) [#/Vol] 2.0 10*3/uL High 0 - 0.5 10*3/uL [facility] Work Phone: 1 Eosinophils/100 WBC (Bld) 19.5 % High 1 - 6 % [facility] Work Phone: Granulocytes/100 WBC (Bld) 44.0 % 40 - 80 % [facility] Work Phone: Hematocrit (Bld) [Volume fraction] 47.7 % 40 - 52 % [facility] Work Phone: Hemoglobin (Bld) [Mass/Vol] 16.3 g/dL 13 - 18 g/dL [facility] Work Phone: Interpretation and review of laboratory results Abnormal [facility] Work Phone: Lymphocytes (Bld) [#/Vol] 2.9 10*3/uL 1 - 4.3 10*3/uL [facility] Work Phone: Lymphocytes/100 WBC (Bld) 28.1 % 20 - 40 % [facility] Work Phone: MCH (RBC) [Entitic mass] 30.2 pg 26 - 34 pg [facility] Work Phone: MCHC (RBC) [Mass/Vol] 34.1 % 32 - 36 % [facility] Work Phone: MCV (RBC) [Entitic vol] 88.4 fL 80 - 98 fL [facility] Work Phone: Monocytes (Bld) [#/Vol] 0.8 10*3/uL 0 - 0.8 10*3/uL [employer] Work Phone: [phone] Monocytes/100 WBC (Bld) 7.5 % 2 - 10 % S [facility] Work Phone: [phone] Platelet distribution width (Bld) [Ratio] 13.6 % 11.5 - 14.5 % [employer] Work Phone: [phone] Platelet mean volume (Bld) [Entitic vol] 7.0 fL Low 7.4 - 12.4 fL [employer] Work Phone: [phone] Comment on above: MPV is a calculated measurement using platelet volume ratio. Platelets (Bld) [#/Vol] 275 10*3/uL 140 - 440 10*3/uL [employer] Work Phone: [phone] RBC (Bld) [#/Vol] 5.39 10*6/uL 4.4 - 5.9 10*6/uL [employer] Work Phone: [phone] WBC (Bld) [#/Vol] 10.5 10*3/uL 3.6 - 10.7 10*3/uL [employer] Work Phone: [phone] Test Performed by [employer], [address] [facility] Work Phone: [phone] CULTURE BLOODon 12-06-2021 Microscopic examination of blood, culture CULTURE BLOOD --> Status: P No growth at 1 day. No growth at 2 days. No growth at 3 days. No growth at 4 days. No growth at 2 days. No growth at 3 days. No growth at 4 days. Normal [employer] Comment on above: Performed By: #### C UA2 #### [employer] [address] [place] [address] CULTURE BLOOD (Two)on 2021 Microscopic examination of blood, culture CULTURE BLOOD (Two) --> Status: P No growth at 1 day. No growth at 2 days. No growth at 3 days. No growth at 4 days. No growth at 2 days. No growth at 3 days. No growth at 4 days. Normal [employer] Comment on above: Performed By: #### C UA2 #### [facility] [address] [place] [address] Hemogram w/ Autodiffon 12-06 Abs Baso Cnt 0.1 10*3/uL Normal 0.0-0.2 [facility] Comment on above: Performed By: #### H EMDF, TSH5, LIPD2, CMP3M #### [facility] [address] [place] [address] Abs Neutrophile Cnt 4.6 10*3/uL Normal 1.8-7.0 [facility] Comment on above: Performed By: #### H EMDF, TSH5, LIPD2, CMP3M #### [facility] [address] [place] [address] Basophils/100 WBC (Bld) 0.9 % Normal 0.0-2.0 [facility] Comment on above: Performed By: #### H EMDF, TSH5, LIPD2, CMP3M #### [facility] [address] [place] [address] Eosinophils (Bld) [#/Vol] 2.0 10*3/uL High 0.0-0.5 [facility] Comment on above: Performed By: #### H EMDF, TSH5, LIPD2, CMP3M #### [facility] [address] [place] [address] Eosinophils/100 WBC (Bld) 19.5 % High 1.0-6.0 [facility] Comment on above: Performed By: #### H EMDF, TSH5, LIPD2, CMP3M #### [facility] [address] [place] [address] Erythrocyte distribution width (RBC) [Ratio] 13.6 % Normal 11.5-14.5 [facility] Comment on above: Performed By: #### H EMDF, TSH5, LIPD2, CMP3M #### [facility] [address] [place] [address] Granulocytes/100 WBC (Bld) 44.0 % Normal 40.0-80.0 [facility] Comment on above: Performed By: #### H EMDF, TSH5, LIPD2, CMP3M #### [facility] [address] [place] [address] Hematocrit (Bld) [Volume fraction] 47.7 % Normal 40.0-52.0 [facility] Comment on above: Performed By: #### H EMDF, TSH5, LIPD2, CMP3M #### [facility] [address] [place] [address] Hemoglobin (Bld) [Mass/Vol] 16.3 g/dL Normal 13.0-18.0 [facility] Comment on above: Performed By: #### H EMDF, TSH5, LIPD2, CMP3M #### [facility] [address] [place] [address] Lymphocytes (Bld) [#/Vol] 2.9 10*3/uL Normal 1.0-4.3 [facility] Comment on above: Performed By: #### H EMDF, TSH5, LIPD2, CMP3M #### [facility] [address] [place] [address] Lymphocytes/100 WBC (Bld) 28.1 % Normal 20.0-40.0 [facility] Comment on above: Performed By: #### H EMDF, TSH5, LIPD2, CMP3M #### [facility] [address] [place] [address] MCH (RBC) [Entitic mass] 30.2 pg Normal 26.0-34.0 [facility] Comment on above: Performed By: #### H EMDF, TSH5, LIPD2, CMP3M #### [facility] [address] [place] [address] MCHC 34.1 % Normal 32.0-36.0 [facility] Comment on above: Performed By: #### H EMDF, TSH5, LIPD2, CMP3M #### [facility] [address] [place] [address] MCV (RBC) [Entitic vol] 88.4 fL Normal 80.0-98.0 [facility] Comment on above: Performed By: #### H EMDF, TSH5, LIPD2, CMP3M #### [facility] [address] [place] [address] Monocytes (Bld) [#/Vol] 0.8 10*3/uL Normal 0.0-0.8 [facility] Comment on above: Performed By: #### H EMDF, TSH5, LIPD2, CMP3M #### [facility] [address] [place] [address] Monocytes/100 WBC (Bld) 7.5 % Normal 2.0-10.0 [facility] Comment on above: Performed By: #### H EMDF, TSH5, LIPD2, CMP3M #### [facility] [address] [place] [address] Platelet mean volume (Bld) [Entitic vol] 7.0 fL Low 7.4-12.4 [facility] Comment on above: Result Comment: MPV is a calculated measurement using platelet volume ratio. Performed By: #### H EMDF, TSH5, LIPD2, CMP3M #### [place] [address] [place] [address] Platelets (Bld) [#/Vol] 275 10*3/uL Normal 140-440 [facility] Comment on above: Performed By: #### H EMDF, TSH5, LIPD2, CMP3M #### [facility] [address] [place] [address] RBC (Bld) [#/Vol] 5.39 10*6/uL Normal 4.40-5.90 [facility] Comment on above: Performed By: #### H EMDF, TSH5, LIPD2, CMP3M #### [facility] [address] [place] [address] WBC (Bld) [#/Vol] 10.5 10*3/uL Normal 3.6-10.7 [facility] Comment on above: Performed By: #### H EMDF, TSH5, LIPD2, CMP3M #### [facility] [address] [place] [address] Basic Metabolic Panelon 10- Anion gap [Moles/Vol] 6 mmol/L Normal 3-13 [facility] Comment on above: Performed By: #### M DIFF, HEMDF, BMP3M #### [facility] [address] [place] [address] Calcium [Mass/Vol] 10.2 mg/dL Normal 8.4-10.4 [facility] Comment on above: Performed By: #### M DIFF, HEMDF, BMP3M #### [facility] [address] [place] [address] CO2 [Moles/Vol] 25 mmol/L Normal 22-30 [facility] Comment on above: Performed By: #### M DIFF, HEMDF, BMP3M #### [facility] [address] [place] [address] Glucose [Mass/Vol] 96 mg/dL Normal 70-100 [facility] Comment on above: Performed By: #### M DIFF, HEMDF, BMP3M #### [facility] [address] [place] [address] Urea nitrogen [Mass/Vol] 21 mg/dL High 7-17 [facility] Comment on above: Performed By: #### M DIFF, HEMDF, BMP3M #### [facility] [address] [place] [address] Creatinine [Mass/Vol] 1.26 mg/dL High 0.52-1.25 [facility] Comment on above: Performed By: #### M DIFF, HEMDF, BMP3M #### [facility] [address] [place] [address] GFR/1.73 sq M.predicted among blacks MDRD (S/P/Bld) [Vol rate/Area] 71.3 mL/min/{1.73_m2} Normal >60 [facility] Comment on above: Performed By: #### M DIFF, HEMDF, BMP3M #### [facility] [address] [place] [address] GFR/1.73 sq M.predicted among non-blacks MDRD (S/P/Bld) [Vol rate/Area] 61.5 mL/min/{1.73_m2} Normal >60 [facility] Comment on above: Result Comment: KDIG [...] tubular creatinine secretion. Performed By: #### M DIFF HEMDF BMP3M #### [facility] [address] [place] [address] Potassium [Moles/Vol] 4.3 mmol/L Normal 3.5-5.1 [facility] Comment on above: Performed By: #### M DIFF, HEMDF, BMP3M #### [facility] [address] [place] [address] Chloride [Moles/Vol] 105 mmol/L Normal 98-107 [facility] Comment on above: Performed By: #### M DIFF HEMDF, BMP3M #### [facility] [address] [place] [address] Sodium [Moles/Vol] 135 mmol/L Normal 135-145 [facility] Comment on above: Performed By: #### M DIFF, HEMDF, BMP3M #### [facility] [address] [place] [address] Basic Metabolic Panel w/ Ref rolanda to MGon 12-05-2021 Anion gap [Moles/Vol] 6 mmol/L 3 - 13 mmol/L [facility] Work Phone: Calcium [Mass/Vol] 10.2 mg/dL 8.4 - 10. 4 mg/dL [facility] Work Phone: Chloride [Moles/Vol] 105 mmol/L 98 - 10 7 mmol/L [facility] Work Phone: CO2 [Moles/Vol] 25 mmol/L 22 - 30 mmol/L [facility] Work Phone: [phone] Creatinine [Mass/Vol] 1.26 mg/dL High 0.52 - 1.25 mg/dL [employer] Work Phone: [phone] EGFR IF NonAfrican Citizen Of [place] 61.5 mL/min 60 - PINF mL/min [facility] Work Phone: [phone] Comment on above: KDIGO guidelines pro vide [...] rate/Area] 71.3 mL/min/{1.73_m2} 60 - PINF mL/min [employer] Work Phone: [phone] Glucose [Mass/Vol] 96 mg/dL 70 - 100 mg/dL [facility] Work Phone: [phone] Interpretation and review of laboratory results Abnormal [facility] Work Phone: [phone] Potassium [Moles/Vol] 4.3 mmol/L 3.5 - 5.1 mmol/L [employer] Work Phone: [phone] Sodium [Moles/Vol] 135 mmol/L 135 - 145 mmol/L [facility] Work Phone: [phone] Urea nitrogen (BldV) [Mass/Vol] 21 mg/dL High 7 - 17 mg/dL [facility] Work Phone: [phone] Test Performed by [facility], [address] [place], [place] [id number] [place] [address] LAB [facility] Work Phone: CBC with Auto Differentialon 12-05-2021 Hematocrit (Bld) [Volume fraction] 43.8 % 40 - 52 % [facility] Work Phone: Hemoglobin (Bld) [Mass/Vol] 15.1 g/dL 13 - 18 g/dL [facility] Work Phone: Interpretation and review of laboratory results Abnormal [facility] Work Phone: MCH (RBC) [Entitic mass] 30.7 pg 26 - 34 pg [facility] Work Phone: MCHC (RBC) [Mass/Vol] 34.4 % 32 - 36 % [facility] Work Phone: MCV (RBC) [Entitic vol] 89.1 fL 80 - 98 fL [facility] Work Phone: Platelet distribution width (Bld) [Ratio] 13.7 % 11.5 - 14.5 % [facility] Work Phone: Platelet mean volume (Bld) [Entitic vol] 6.9 fL Low 7.4 - 12.4 fL [facility] Work Phone: Comment on above: MPV is a calculated measurement using platelet volume ratio. Platelets (Bld) [#/Vol] 265 10*3/uL 140 - 440 10*3/uL [facility] Work Phone: RBC (Bld) [#/Vol] 4.91 10*6/uL 4.4 - 5.9 10*6/uL [facility] Work Phone: WBC (Bld) [#/Vol] 10.4 10*3/uL 3.6 - 10.7 10*3/uL [facility] Work Phone: Test Performed by [employer], [address] [place], [place] [id number] [place] [address] [facility] Work Phone: Hemogram w/ Autodiffon 12-05 Erythrocyte distribution width (RBC) [Ratio] 13.7 % Normal 11.5-14.5 [facility] [employer] Comment on above: Performed By: #### M DIFF, HEMDF, BMP3M #### [facility] [address] [place] [address] Hematocrit (Bld) [Volume fraction] 43.8 % Normal 40.0-52.0 [facility] Comment on above: Performed By: #### M DIFF, HEMDF, BMP3M #### [facility] [address] [place] [address] Hemoglobin (Bld) [Mass/Vol] 15.1 g/dL Normal 13.0-18.0 [facility] Comment on above: Performed By: #### M DIFF, HEMDF, BMP3M #### [facility] [address] [place] [address] MCH (RBC) [Entitic mass] 30.7 pg Normal 26.0-34.0 [facility] Comment on above: Performed By: #### M DIFF, HEMDF, BMP3M #### [facility] [address] [place] [address] MCHC 34.4 % Normal 32.0-36.0 [facility] Comment on above: Performed By: #### M DIFF, HEMDF, BMP3M #### [facility] [address] [place] [address] MCV (RBC) [Entitic vol] 89.1 fL Normal 80.0-98.0 [facility] Comment on above: Performed By: #### M DIFF, HEMDF, BMP3M #### [facility] [address] [place] [address] Platelet mean volume (Bld) [Entitic vol] 6.9 fL Low 7.4-12.4 [facility] Comment on above: Result Comment: MPV is a calculated measurement using platelet volume ratio. Performed By: #### M DIFF, HEMDF, BMP3M #### [facility] [address] [place] [address] Platelets (Bld) [#/Vol] 265 10*3/uL Normal 140-440 [facility] Comment on above: Performed By: #### M DIFF, HEMDF, BMP3M #### [facility] [address] [place] [address] RBC (Bld) [#/Vol] 4.91 10*6/uL Normal 4.40-5.90 [facility] Comment on above: Performed By: #### M DIFF, HEMDF, BMP3M #### [facility] [address] [place] [address] WBC (Bld) [#/Vol] 10.4 10*3/uL Normal 3.6-10.7 [facility] Comment on above: Performed By: #### M DIFF, HEMDF, BMP3M #### [facility] [address] [place] [address] Manual Diffon 12-05-2021 Abs Eosin Cnt 1.9 10*3/uL High 0.0-0.5 [facility] Comment on above: Performed By: #### C UA2 #### [facility] [address] [place] [address] Abs Lymph Cnt 2.4 10*3/uL Normal 1.1-4.5 [facility] Comment on above: Performed By: #### C UA2 #### [facility] [address] [place] [address] Abs Monocyte Cnt 0.6 10*3/uL Normal 0.2-1.1 [facility] Comment on above: Performed By: #### C UA2 #### [facility] [address] [place] [address] Abs Neutrophile Cnt 5.4 10*3/uL Normal 2.2-8.2 [facility] Comment on above: Performed By: #### C UA2 #### [facility] [address] [place] [address] Anisocytosis Slight Normal [facility] Comment on above: Performed By: #### C UA2 #### [facility] [address] [place] [address] Eosinophils 18 % High 1-6 [facility] Comment on above: Performed By: #### C UA2 #### [facility] [address] [place] [address] Lymphocytes 23 % Normal 20-40 [facility] Comment on above: Performed By: #### C UA2 #### [facility] [address] [place] [address] Metamyelocytes 1 % Abnormal <1 [facility] Comment on above: Performed By: #### C UA2 #### [facility] [address] [place] [address] Monocytes 6 % Normal 2-10 [facility] Comment on above: Performed By: #### C UA2 #### [facility] [address] [place] [address] Ovalocytes Slight Normal [facility] Comment on above: Performed By: #### C UA2 #### [facility] [address] [place] [address] RBC Morphology ABNORMAL Normal [facility] Comment on above: Performed By: #### C UA2 #### [facility] [address] [place] [address] Seg Neutrophils 52 % Normal 40-80 [facility] Comment on above: Performed By: #### C UA2 #### [facility] [address] [place] [address] Tear Drop Forms Slight Normal [facility] Comment on above: Performed By: #### C UA2 #### [facility] [address] [place] [address] Abs Baso Cnt 0.0 10*3/uL Normal 0.0-0.2 [facility] Comment on above: Performed By: #### C UA2 #### [facility] [address] [place] [address] Bands 0 % Normal 0-3 [facility] Comment on above: Performed By: #### C UA2 #### [facility] [address] [place] [address] Basophils 0 % Normal 0-2 [facility] Comment on above: Performed By: #### C UA2 #### [facility] [address] [place] [address] Cells counted 100 Normal [facility] Comment on above: Performed By: #### C UA2 #### [facility] [address] [place] [address] Manual Differentialon 2021 Absolute Baso # 0.0 10*3/uL 0 - 0.2 10*3/uL [facility] Work Phone: [phone] Absolute Eos # 1.9 10*3/uL High 0 - 0.5 10*3/uL [facility] Work Phone: 1 22 Absolute Lymph # 2.4 10*3/uL 1.1 - 4.5 10*3/uL [facility] Work Phone: 1 22 Absolute Stanley # 0.6 10*3/uL 0.2 - 1.1 10*3/uL [facility] Work Phone: [phone] Absolute Neut # 5.4 10*3/uL 2.2 - 8.2 10*3/uL [facility] Work Phone: [phone] Anisocytosis Slight [employer] Work Phone: 22 Bands 0 % 0 - 3 % [employer] Work Phone: [phone] Basophils/100 WBC (Bld) 0 % 0 - 2 % S [facility] Work Phone: 22 Eosinophils/100 WBC (Bld) 18 % High 1 - 6 % [employer] Work Phone: [phone] Interpretation and review of laboratory results Abnormal [employer] Work Phone: [phone] Lymphocytes/100 WBC (Bld) 23 % 20 - 40 % [employer] Work Phone: 22 Metamyelocytes 1 % Abnormal NINF - 1 % [employer] Work Phone: 22 Monocytes/100 WBC (Bld) 6 % 2 - 10 % [facility] Work Phone: 22 Ovalocytes Slight [employer] Work Phone: 22 RBC (Bld) [#/Vol] ABNORMAL [employer] Work Phone: 22 Seg Neutrophils 52 % 40 - 80 % [employer] Work Phone: 22 Tear Drop Cells Slight [employer] Work Phone: 22 TOTAL CELLS COUNTED 100 [employer] Work Phone: 1 22 Test Performed by [facility], [address] [place], [place] [id number] [place] [address] LAB [employer] Work Phone: [phone] Basic Metabolic Panelon 10-1 0 Anion gap [Moles/Vol] 6 mmol/L Normal 3-13 [facility] Comment on above: Performed By: #### B MP3M, HEMDF #### [facility] [address] [place] [address] Calcium [Mass/Vol] 10.4 mg/dL Normal 8.4-10.4 [facility] Comment on above: Performed By: #### B MP3M, HEMDF #### [facility] [address] [place] [address] CO2 [Moles/Vol] 27 mmol/L Normal 22-30 [facility] Comment on above: Performed By: #### B MP3M, HEMDF #### [facility] [address] [place] [address] Creatinine [Mass/Vol] 1.49 mg/dL High 0.52-1.25 [facility] Comment on above: Performed By: #### B MP3M, HEMDF #### [facility] [address] [place] [address] GFR/1.73 sq M.predicted among blacks MDRD (S/P/Bld) [Vol rate/Area] 58.2 mL/min/{1.73_m2} Abnormal >60 [facility] Comment on above: Performed By: #### B MP3M, HEMDF #### [facility] [address] [place] [address] GFR/1.73 sq M.predicted among non-blacks MDRD (S/P/Bld) [Vol rate/Area] 50.2 mL/min/{1.73_m2} Abnormal >60 [facility] Comment on above: Result Comment: KDIG [...] Performed By: #### B MP3M, HEMDF #### [facility] [address] [place] [address] Glucose [Mass/Vol] 106 mg/dL High 70-100 [facility] Comment on above: Performed By: #### B MP3M, HEMDF #### [facility] [address] [place] [address] Urea nitrogen [Mass/Vol] 22 mg/dL High 7-17 [facility] Comment on above: Performed By: #### Zayra MP3M, HEMDF #### [facility] [address] [place] [address] Chloride [Moles/Vol] 105 mmol/L Normal 98-107 [facility] Comment on above: Performed By: #### Zayra MP3M, HEMDF #### [facility] [address] [place] [address] Potassium [Moles/Vol] 4.9 mmol/L Normal 3.5-5.1 [facility] Comment on above: Performed By: #### Zayra MP3M, HEMDF #### [facility] [address] [place] [address] Sodium [Moles/Vol] 138 mmol/L Normal 135-145 [facility] Comment on above: Performed By: #### Zayra MP3M, HEMDF #### [facility] [address] [place] [address] Basic Metabolic Panel w/ Ref rolanda to MGon 12-04-2021 Anion gap [Moles/Vol] 6 mmol/L 3 - 13 mmol/L [facility] Calcium [Mass/Vol] 10.4 mg/dL 8.4 - 10. 4 mg/dL [facility] Chloride [Moles/Vol] 105 mmol/L 98 - 10 7 mmol/L [facility] CO2 [Moles/Vol] 27 mmol/L 22 - 30 mmol/L [facility] Creatinine [Mass/Vol] 1.49 mg/dL High 0.52 - 1.25 mg/dL [facility] EGFR IF NonAfrican Citizen Of [place] 50.2 mL/min Abnormal 60 - PINF mL/min [facility] Comment on [...] 22 mg/dL High 7 - 17 mg/dL [facility] Test Performed by [facility] [facility], [address] [place], [place] [address] [place] [address] [facility] CBC with Auto Differentialon 12-04-2021 Absolute Baso [...] [Mass/Vol] 15.9 g/dL 13 - 18 g/dL [facility] Interpretation [...] [#/Vol] 10.1 10*3/uL 3.6 - 10.7 10*3/uL [facility] Test Performed by [facility], [address] [place], [place], [place] [address] [facility] Complete Urinalysison 2021 Appearance (U) Clear Normal Clear [facility] [place] [facility] Comment on above: Result Comment: . Performed By: #### H EMDF, TSH5, LIPD2, CMP3M #### [facility] [address] [place] [address] Bilirubin,Urine Negative Normal Negative [facility] Comment on above: Result Comment: . Performed By: #### H EMDF, TSH5, LIPD2, CMP3M #### [facility] [address] [place] [address] Color (U) Light-Yellow Normal Lt. Yellow [facility] Comment on above: Result Comment: . Performed By: #### H EMDF, TSH5, LIPD2, CMP3M #### [facility] [address] [place] [address] Glucose Ql (U) Normal Normal Normal (<70) [facility] Comment on above: Result Comment: . Performed By: #### H EMDF, TSH5, LIPD2, CMP3M #### [facility] [address] [place] [address] Ketone,Urine Negative Normal Negative [facility] Comment on above: Result Comment: . Performed By: #### H EMDF, TSH5, LIPD2, CMP3M #### [facility] [address] [place] [address] Leukocytes,Urine Negative Normal Negative [facility] Comment on above: Result Comment: . Performed By: #### H EMDF, TSH5, LIPD2, CMP3M #### [facility] [address] [place] [address] Nitrites,Urine Negative Normal Negative [facility] Comment on above: Result Comment: . Performed By: #### H EMDF, TSH5, LIPD2, CMP3M #### [facility] [address] [place] [address] Occult Blood,Urine Negative Normal Negative [facility] Comment on above: Result Comment: . Performed By: #### H EMDF, TSH5, LIPD2, CMP3M #### [facility] [address] [place] [address] pH,Urine 7.0 Normal 5.0-8.0 [facility] Comment on above: Result Comment: . Performed By: #### H EMDF, TSH5, LIPD2, CMP3M #### [facility] [address] [place] [address] Specific [place],Urine 1.013 Normal 1.005 - 1.030 [facility] Comment on above: Result Comment: . Performed By: #### H EMDF, TSH5, LIPD2, CMP3M #### [facility] [address] [place] [address] Total Protein,Urine Negative Normal Negative [facility] Comment on above: Result Comment: . Performed By: #### H EMDF, TSH5, LIPD2, CMP3M #### [facility] [address] [place] [address] Urobilinogen,Urine Normal Normal Normal (0-1) [facility] Comment on above: Result Comment: . Performed By: #### H EMDF, TSH5, LIPD2, CMP3M #### [facility] [address] [place] [address] Hemogram w/ Autodiffon 12-04 Abs Baso Cnt 0.1 10*3/uL Normal 0.0-0.2 [facility] Comment on above: Performed By: #### B MP3M, HEMDF #### [facility] [address] [place] [address] Abs Neutrophile Cnt 5.0 10*3/uL Normal 1.8-7.0 [facility] Comment on above: Performed By: #### B MP3M, HEMDF #### [facility] [address] [place] [address] Basophils/100 WBC (Bld) 0.6 % Normal 0.0-2.0 [facility] Comment on above: Performed By: #### B MP3M, HEMDF #### [facility] [address] [place] [address] Eosinophils (Bld) [#/Vol] 1.5 10*3/uL High 0.0-0.5 [facility] Comment on above: Performed By: #### B MP3M, HEMDF #### [facility] [address] [place] [address] Eosinophils/100 WBC (Bld) 14.6 % High 1.0-6.0 [facility] Comment on above: Performed By: #### B MP3M, HEMDF #### [facility] [address] [place] [address] Erythrocyte distribution width (RBC) [Ratio] 13.5 % Normal 11.5-14.5 [facility] Comment on above: Performed By: #### B MP3M, HEMDF #### [facility] [address] [place] [address] Granulocytes/100 WBC (Bld) 49.8 % Normal 40.0-80.0 [facility] Comment on above: Performed By: #### B MP3M, HEMDF #### [facility] [address] [place] [address] Hematocrit (Bld) [Volume fraction] 46.9 % Normal 40.0-52.0 [facility] Comment on above: Performed By: #### B MP3M, HEMDF #### [facility] [address] [place] [address] Hemoglobin (Bld) [Mass/Vol] 15.9 g/dL Normal 13.0-18.0 [facility] Comment on above: Performed By: #### B MP3M, HEMDF #### [facility] [address] [place] [address] Lymphocytes (Bld) [#/Vol] 2.9 10*3/uL Normal 1.0-4.3 [facility] Comment on above: Performed By: #### B MP3M, HEMDF #### [facility] [address] [place] [address] Lymphocytes/100 WBC (Bld) 28.4 % Normal 20.0-40.0 [facility] Comment on above: Performed By: #### B MP3M, HEMDF #### [facility] [address] [place] [address] MCH (RBC) [Entitic mass] 30.7 pg Normal 26.0-34.0 [facility] Comment on above: Performed By: #### B MP3M, HEMDF #### [facility] [address] [place] [address] MCHC 34.0 % Normal 32.0-36.0 [facility] Comment on above: Performed By: #### B MP3M, HEMDF #### [facility] [address] [place] [address] MCV (RBC) [Entitic vol] 90.2 fL Normal 80.0-98.0 [facility] Comment on above: Performed By: #### B MP3M, HEMDF #### [facility] [address] [place] [address] Monocytes (Bld) [#/Vol] 0.7 10*3/uL Normal 0.0-0.8 [facility] Comment on above: Performed By: #### B MP3M, HEMDF #### [facility] [address] [place] [address] Monocytes/100 WBC (Bld) 6.6 % Normal 2.0-10.0 [facility] Comment on above: Performed By: #### B MP3M, HEMDF #### [facility] [address] [place] [address] Platelet mean volume (Bld) [Entitic vol] 7.3 fL Low 7.4-12.4 [facility] Comment on above: Result Comment: MPV is a calculated measurement using platelet volume ratio. Performed By: #### B MP3M, HEMDF #### [facility] [address] [place] [address] Platelets (Bld) [#/Vol] 268 10*3/uL Normal 140-440 [facility] Comment on above: Performed By: #### B MP3M, HEMDF #### [facility] [address] [place] [address] RBC (Bld) [#/Vol] 5.20 10*6/uL Normal 4.40-5.90 [facility] Comment on above: Performed By: #### B MP3M, HEMDF #### [facility] [address] [place] [address] WBC (Bld) [#/Vol] 10.1 10*3/uL Normal 3.6-10.7 [facility] Comment on above: Performed By: #### B MP3M, HEMDF #### [facility] [address] [place] [address] [facility] 12-04-2021 Patient Name: CORRIE QUEEN Ultrasound ACCESSION EXAM DATE/TIME PROCEDURE ORDERING PROVIDER [id number] 12/04/2021 10:28 EDT US Retroperitoneal 5813 -KIARA KAPOOR CPT code 43316 Reason For Exam (US Retroperitoneal Limited) R [...] and Time: 12/04/2021 2:48 [facility] Result, Unknown Provider - 12/04/2021 Patient Name: CORRIE QUEEN Ultrasound ACCESSION EXAM DATE/TIME PROCEDURE ORDERING PROVIDER [id number] 12/04/2021 10:28 EDT US Retroperitoneal 5813 -KIARA KAPOOR CPT code 74576 Reason For Exam (US Retroperitoneal Limited) R [...] Limitedon 12-04-2021 US Retroperitoneal Limited Patient Name: CORRIE QUEEN Ultrasound ACCESSION EXAM DATE/TIME PROCEDURE ORDERING PROVIDER [id number] 12/04/2021 10:28 EDT US Retroperitoneal KIARA BOB CPT code 08748 Reason For Exam (US Retroperitoneal Limited) R [...] Transcribed Date and Time: 12/04/2021 2:48 Normal [facility] UrinalysisOrdered By: Connor Kapoor on 12-04-2021 Appearance (U) Clear Clear NA [facility] Comment [...] [pH] [facility] Comment on above: . Specific [place], Urine 1.013 S [facility] Comment on above: . Total Protein, Urine Negative Negativ e mg/dL [facility] Comment on above: . Urobilinogen, Urine Normal Normal (0-1) mg/dL [facility] Comment on above: . [facility] Urinalysison 12-04-2021 Test Performed by [facility], [address], [place], [place] [id number] [place] [address] LAB Basic Metabolic Panelon Calcium [Mass/Vol] 9.7 mg/dL Normal 8.4-10.4 [facility] Comment on above: Performed By: #### H EMDF, TSH5, LIPD2, CMP3M #### [facility] [address] [place] [address] Glucose [Mass/Vol] 96 mg/dL Normal 70-100 [facility] Comment on above: Performed By: #### H EMDF, TSH5, LIPD2, CMP3M #### [facility] [address] [place] [address] Anion gap [Moles/Vol] 7 mmol/L Normal 3-13 [facility] Comment on above: Performed By: #### H EMDF, TSH5, LIPD2, CMP3M #### [facility] [address] [place] [address] CO2 [Moles/Vol] 21 mmol/L Low 22-30 [facility] Comment on above: Performed By: #### H EMDF, TSH5, LIPD2, CMP3M #### [facility] [address] [place] [address] Creatinine [Mass/Vol] 1.22 mg/dL Normal 0.52-1.25 [facility] Comment on above: Performed By: #### H EMDF, TSH5, LIPD2, CMP3M #### [facility] [address] [place] [address] GFR/1.73 sq M.predicted among blacks MDRD (S/P/Bld) [Vol rate/Area] 74.1 mL/min/{1.73_m2} Normal >60 [facility] Comment on above: Performed By: #### H EMDF, TSH5, LIPD2, CMP3M #### [facility] [address] [place] [address] GFR/1.73 sq M.predicted among non-blacks MDRD (S/P/Bld) [Vol rate/Area] 63.9 mL/min/{1.73_m2} Normal >60 [facility] Comment on above: Result Comment: KDIG [...] #### H EMDF, TSH5, LIPD2, CMP3M #### [facility] [address] [place] [address] Urea nitrogen [Mass/Vol] 24 mg/dL High 7-17 [facility] Comment on above: Performed By: #### H EMDKp TSH5, LIPD2, CMP3M #### [facility] [address] [place] [address] Chloride [Moles/Vol] 110 mmol/L High 98-107 [facility] Comment on above: Performed By: #### H EMDKp, TSH5, LIPD2, CMP3M #### [facility] [address] [place] [address] Potassium [Moles/Vol] 4.2 mmol/L Normal 3.5-5.1 [facility] Comment on above: Performed By: #### H EMDF, TSH5, LIPD2, CMP3M #### [facility] [address] [place] [address] Sodium [Moles/Vol] 137 mmol/L Normal 135-145 [facility] Comment on above: Performed By: #### H EMDF, TSH5, LIPD2, CMP3M #### [facility] [address] [place] [address] Basic Metabolic Panel w/ Ref rolanda to MGon 12-03-2021 Anion gap [Moles/Vol] 7 mmol/L 3 - 13 mmol/L [facility] Calcium [Mass/Vol] 9.7 mg/dL 8.4 - 10. 4 mg/dL [facility] Chloride [Moles/Vol] 110 mmol/L High 98 - 10 7 mmol/L [facility] CO2 [Moles/Vol] 21 mmol/L Low 22 - 30 mmol/L [facility] Creatinine [Mass/Vol] 1.22 mg/dL 0.52 - 1.25 mg/dL [facility] EGFR IF NonAfrican Citizen Of [place] 63.9 mL/min 60 - PINF mL/min [facility] [...] - 17 mg/dL [facility] Test Performed by [facility], [address] [place], [place] [id number] [place] [address] [facility] CBC with Auto Differentialon 12-03-2021 Absolute Baso [...] [#/Vol] 7.8 10*3/uL 3.6 - 10.7 10*3/uL [facility] Test Performed by [facility], [address] [place], [place] [id number] [place] [address] [facility] Hemogram w/ Autodiffon 12-03 Abs Baso Cnt 0.0 10*3/uL Normal 0.0-0.2 [facility] Comment on above: Performed By: #### H EMDF, TSH5, LIPD2, CMP3M #### [facility] [address] [place] [address] Abs Neutrophile Cnt 3.6 10*3/uL Normal 1.8-7.0 [facility] Comment on above: Performed By: #### H EMDF, TSH5, LIPD2, CMP3M #### [facility] [address] [place] [address] Basophils/100 WBC (Bld) 0.5 % Normal 0.0-2.0 [facility] Comment on above: Performed By: #### H EMDF, TSH5, LIPD2, CMP3M #### [facility] [address] [place] [address] Eosinophils (Bld) [#/Vol] 1.3 10*3/uL High 0.0-0.5 [facility] Comment on above: Performed By: #### H EMDF, TSH5, LIPD2, CMP3M #### [facility] [address] [place] [address] Eosinophils/100 WBC (Bld) 17.0 % High 1.0-6.0 [facility] Comment on above: Performed By: #### H EMDF, TSH5, LIPD2, CMP3M #### [facility] [address] [place] [address] Erythrocyte distribution width (RBC) [Ratio] 13.7 % Normal 11.5-14.5 [facility] Comment on above: Performed By: #### H EMDF, TSH5, LIPD2, CMP3M #### [facility] [address] [place] [address] Granulocytes/100 WBC (Bld) 46.8 % Normal 40.0-80.0 [facility] Comment on above: Performed By: #### H EMDF, TSH5, LIPD2, CMP3M #### [facility] [address] [place] [address] Hematocrit (Bld) [Volume fraction] 41.8 % Normal 40.0-52.0 [facility] Comment on above: Performed By: #### H EMDF, TSH5, LIPD2, CMP3M #### [facility] [address] [place] [address] Hemoglobin (Bld) [Mass/Vol] 14.6 g/dL Normal 13.0-18.0 [facility] Comment on above: Performed By: #### H EMDF, TSH5, LIPD2, CMP3M #### [facility] [address] [place] [address] Lymphocytes (Bld) [#/Vol] 2.3 10*3/uL Normal 1.0-4.3 [facility] Comment on above: Performed By: #### H EMDF, TSH5, LIPD2, CMP3M #### [facility] [address] [place] [address] Lymphocytes/100 WBC (Bld) 29.5 % Normal 20.0-40.0 [facility] Comment on above: Performed By: #### H EMDF, TSH5, LIPD2, CMP3M #### [facility] [address] [place] [address] MCH (RBC) [Entitic mass] 30.9 pg Normal 26.0-34.0 [facility] Comment on above: Performed By: #### H EMDF, TSH5, LIPD2, CMP3M #### [facility] [address] [place] [address] MCHC 34.8 % Normal 32.0-36.0 [facility] Comment on above: Performed By: #### H EMDF, TSH5, LIPD2, CMP3M #### [facility] [address] [place] [address] MCV (RBC) [Entitic vol] 88.7 fL Normal 80.0-98.0 [facility] Comment on above: Performed By: #### H EMDF, TSH5, LIPD2, CMP3M #### [facility] [address] [place] [address] Monocytes (Bld) [#/Vol] 0.5 10*3/uL Normal 0.0-0.8 [facility] Comment on above: Performed By: #### H EMDF, TSH5, LIPD2, CMP3M #### [facility] [address] [place] [address] Monocytes/100 WBC (Bld) 6.2 % Normal 2.0-10.0 [facility] Comment on above: Performed By: #### H EMDF, TSH5, LIPD2, CMP3M #### [facility] [address] [place] [address] Platelet mean volume (Bld) [Entitic vol] 7.2 fL Low 7.4-12.4 [facility] Comment on above: Result Comment: MPV is a calculated measurement using platelet volume ratio. Performed By: #### H EMDF, TSH5, LIPD2, CMP3M #### [facility] [address] [place] [address] Platelets (Bld) [#/Vol] 228 10*3/uL Normal 140-440 [facility] Comment on above: Performed By: #### H EMDF, TSH5, LIPD2, CMP3M #### [facility] [address] [place] [address] RBC (Bld) [#/Vol] 4.72 10*6/uL Normal 4.40-5.90 [facility] Comment on above: Performed By: #### H EMDF, TSH5, LIPD2, CMP3M #### [facility] [address] [place] [address] WBC (Bld) [#/Vol] 7.8 10*3/uL Normal 3.6-10.7 [facility] Comment on above: Performed By: #### H EMDF, TSH5, LIPD2, CMP3M #### [facility] [address] [place] [address] CBC with Auto Differentialon 12-02-2021 Absolute Baso # 0.0 10*3/uL 0 - 0.2 10*3/uL [facility] Work Phone: Absolute Neut # 4.6 10*3/uL 1.8 - 7 10*3/uL [facility] Work Phone: Basophils/100 WBC (Bld) 0.4 % 0 - 2 % [facility] Work Phone: [phone] Eosinophils (Bld) [#/Vol] 1.4 10*3/uL High 0 - 0.5 10*3/uL [facility] Work Phone: [phone] Eosinophils/100 WBC (Bld) 16.2 % High 1 - 6 % [facility] Work Phone: Granulocytes/100 WBC (Bld) 54.3 % 40 - 80 % [facility] Work Phone: [phone] Hematocrit (Bld) [Volume fraction] 40.8 % 40 - 52 % [facility] Work Phone: Hemoglobin (Bld) [Mass/Vol] 14.3 g/dL 13 - 18 g/dL [facility] Work Phone: [phone] Interpretation and review of laboratory results Abnormal [facility] Work Phone: Lymphocytes (Bld) [#/Vol] 1.8 10*3/uL 1 - 4.3 10*3/uL [facility] Work Phone: [phone] Lymphocytes/100 WBC (Bld) 21.5 % 20 - 40 % [facility] Work Phone: [phone] MCH (RBC) [Entitic mass] 31.2 pg 26 - 34 pg [facility] Work Phone: [phone] MCHC (RBC) [Mass/Vol] 35.0 % 32 - 36 % [facility] Work Phone: [phone] MCV (RBC) [Entitic vol] 89.0 fL 80 - 98 fL [facility] Work Phone: [phone] Monocytes (Bld) [#/Vol] 0.6 10*3/uL 0 - 0.8 10*3/uL [facility] Work Phone: [phone] Monocytes/100 WBC (Bld) 7.6 % 2 - 10 % [facility] Work Phone: [phone] Platelet distribution width (Bld) [Ratio] 13.8 % 11.5 - 14.5 % [facility] Work Phone: [phone] Platelet mean volume (Bld) [Entitic vol] 7.1 fL Low 7.4 - 12.4 fL [facility] Work Phone: [phone] Comment on above: MPV is a calculated measurement using platelet volume ratio. Platelets (Bld) [#/Vol] 203 10*3/uL 140 - 440 10*3/uL [facility] Work Phone: [phone] RBC (Bld) [#/Vol] 4.58 10*6/uL 4.4 - 5.9 10*6/uL [facility] Work Phone: [phone] WBC (Bld) [#/Vol] 8.6 10*3/uL 3.6 - 10.7 10*3/uL [facility] Work Phone: [phone] Performed by [facility], [address] [place], [place] [address] [facility] Work Phone: [phone] CULTURE URINEon 12-02-2021 CULTURE URINE CULTURE URINE --> Status: F No growth (<1,000 CFU/ml). Normal [facility] Comment on above: Performed By: #### C UA2 #### [facility] [address] [facility] [place] [place] [address] Comp Panel with Mg Reflexon 12-02-2021 Bilirubin [Mass/Vol] 0.4 mg/dL Normal 0.2-1.3 [facility] Comment on above: Performed By: #### H EMDF, TSH5, LIPD2, CMP3M #### [facility] [address] [facility] [place] [address] ALP [Catalytic activity/Vol] 46 U/L Normal 38-126 [facility] Comment on above: Performed By: #### H EMDF, TSH5, LIPD2, CMP3M #### [facility] [address] [place] [address] ALT [Catalytic activity/Vol] 16 U/L Normal 0-49 [facility] Comment on above: Result Comment: The ALT test is performed by an updated assay method. Please note that the reference intervals have been changed and are now sex specific. Performed By: #### H EMDF, TSH5, LIPD2, CMP3M #### [facility] [address] [facility] [place] [place] [address] Anion gap [Moles/Vol] 9 mmol/L Normal 3-13 [facility] Comment on above: Performed By: #### H EMDF, TSH5, LIPD2, CMP3M #### [facility] [address] [place] [address] AST [Catalytic activity/Vol] 24 U/L Normal 15-46 [facility] Comment on above: Performed By: #### H EMDF, TSH5, LIPD2, CMP3M #### [facility] [address] [place] [address] Calcium [Mass/Vol] 9.7 mg/dL Normal 8.4-10.4 [facility] Comment on above: Performed By: #### H EMDF, TSH5, LIPD2, CMP3M #### [facility] [address] [place] [address] CO2 [Moles/Vol] 18 mmol/L Low 22-30 [facility] Comment on above: Performed By: #### H EMDF, TSH5, LIPD2, CMP3M #### [facility] [address] [place] [address] Creatinine [Mass/Vol] 1.49 mg/dL High 0.52-1.25 [facility] Comment on above: Performed By: #### H EMDF, TSH5, LIPD2, CMP3M #### [facility] [address] [place] [address] GFR/1.73 sq M.predicted among blacks MDRD (S/P/Bld) [Vol rate/Area] 58.2 mL/min/{1.73_m2} Abnormal >60 [facility] Comment on above: Performed By: #### H EMDF, TSH5, LIPD2, CMP3M #### [facility] [address] [place] [address] GFR/1.73 sq M.predicted among non-blacks MDRD (S/P/Bld) [Vol rate/Area] 50.2 mL/min/{1.73_m2} Abnormal >60 [facility] Comment on above: Result Comment: KDIG [...] #### H EMDF, TSH5, LIPD2, CMP3M #### [facility] [address] [place] [address] Glucose [Mass/Vol] 99 mg/dL Normal 70-100 [facility] Comment on above: Performed By: #### H EMDF, TSH5, LIPD2, CMP3M #### [facility] [address] [place] [address] Protein [Mass/Vol] 6.7 g/dL Normal 6.3-8.2 [facility] Comment on above: Performed By: #### H EMDF, TSH5, LIPD2, CMP3M #### [facility] [address] [place] [address] Urea nitrogen [Mass/Vol] 29 mg/dL High 7-17 [facility] Comment on above: Performed By: #### H EMDF, TSH5, LIPD2, CMP3M #### [facility] [address] [place] [address] Potassium [Moles/Vol] 3.7 mmol/L Normal 3.5-5.1 [facility] Comment on above: Performed By: #### H EMDF, TSH5, LIPD2, CMP3M #### [facility] [address] [place] [address] Albumin [Mass/Vol] 3.7 g/dL Normal 3.5-5.0 [facility] Comment on above: Performed By: #### H EMDF, TSH5, LIPD2, CMP3M #### [facility] [address] [place] [address] Chloride [Moles/Vol] 107 mmol/L Normal 98-107 [facility] Comment on above: Performed By: #### H EMDF, TSH5, LIPD2, CMP3M #### [facility] [address] [place] [address] Sodium [Moles/Vol] 134 mmol/L Low 135-145 [facility] Comment on above: Performed By: #### H EMDF, TSH5, LIPD2, CMP3M #### [facility] [address] [place] [address] Comprehensive Metabolic Pane l w/ Reflex to MGon 12-02-2021 Albumin [Mass/Vol] 3.7 g/dL 3.5 - 5 g/dL [facility] Work Phone: [phone] ALP (Bld) [Catalytic activity/Vol] 46 U/L 38 - 126 U/L [facility] Work Phone: [phone] ALT [Catalytic activity/Vol] 16 U/L 0 - 49 U/L [facility] Work Phone: [phone] Comment on above: The ALT test is perf ormed by an updated assay method. Please note that the reference intervals have been changed and are now sex specific. Anion gap [Moles/Vol] 9 mmol/L 3 - 13 mmol/L [facility] Work Phone: [phone] AST [Catalytic activity/Vol] 24 U/L 15 - 46 U/L [facility] Work Phone: [phone] Bilirubin [Mass/Vol] 0.4 mg/dL 0.2 - 1 .3 mg/dL [facility] Work Phone: [phone] Calcium [Mass/Vol] 9.7 mg/dL 8.4 - 10. 4 mg/dL [facility] Work Phone: [phone] Chloride [Moles/Vol] 107 mmol/L 98 - 10 7 mmol/L [facility] Work Phone: [phone] CO2 [Moles/Vol] 18 mmol/L Low 22 - 30 mmol/L [facility] Work Phone: [phone] Creatinine [Mass/Vol] 1.49 mg/dL High 0.52 - 1.25 mg/dL [facility] Work Phone: [phone] EGFR IF NonAfrican Citizen Of [place] 50.2 mL/min Abnormal 60 - PINF mL/min [employer] Work Phone: [phone] Comment on above: KDIGO guidelines pro vide [...] 58.2 mL/min/{1.73_m2} Abnormal 60 - PINF mL/min [employer] Work Phone: [phone] Glucose [Mass/Vol] 99 mg/dL 70 - 100 mg/dL [employer] Work Phone: [phone] Potassium [Moles/Vol] 3.7 mmol/L 3.5 - 5.1 mmol/L [employer] Work Phone: [phone] Protein [Mass/Vol] 6.7 g/dL 6.3 - 8.2 g/dL [employer] Work Phone: [phone] Sodium [Moles/Vol] 134 mmol/L Low 135 - 145 mmol/L [employer] Work Phone: [phone] Urea nitrogen (BldV) [Mass/Vol] 29 mg/dL High 7 - 17 mg/dL [employer] Work Phone: [phone] Culture, Urineon 12-02-2021 Bacteria identified Cx Nom (U) No growth (<1,000 CFU/ml). [facility] Test Performed by [facility], [address] [place] [id number] [facility] Hemogram w/ Autodiffon 12-02 Abs Baso Cnt 0.0 10*3/uL Normal 0.0-0.2 [facility] Comment on above: Performed By: #### H EMDF, TSH5, LIPD2, CMP3M #### [facility] [address] [place] [address] Abs Neutrophile Cnt 4.6 10*3/uL Normal 1.8-7.0 [facility] Comment on above: Performed By: #### H EMDF, TSH5, LIPD2, CMP3M #### [facility] [address] [place] [address] Basophils/100 WBC (Bld) 0.4 % Normal 0.0-2.0 [facility] Comment on above: Performed By: #### H EMDF, TSH5, LIPD2, CMP3M #### [facility] [address] [place] [address] Eosinophils (Bld) [#/Vol] 1.4 10*3/uL High 0.0-0.5 [facility] Comment on above: Performed By: #### H EMDF, TSH5, LIPD2, CMP3M #### [facility] [address] [place] [address] Eosinophils/100 WBC (Bld) 16.2 % High 1.0-6.0 [facility] Comment on above: Performed By: #### H EMDF, TSH5, LIPD2, CMP3M #### [facility] [address] [place] [address] Erythrocyte distribution width (RBC) [Ratio] 13.8 % Normal 11.5-14.5 [facility] Comment on above: Performed By: #### H EMDF, TSH5, LIPD2, CMP3M #### [facility] [address] [place] [address] Granulocytes/100 WBC (Bld) 54.3 % Normal 40.0-80.0 [facility] Comment on above: Performed By: #### H EMDF, TSH5, LIPD2, CMP3M #### [facility] [address] [place] [address] Hematocrit (Bld) [Volume fraction] 40.8 % Normal 40.0-52.0 [facility] Comment on above: Performed By: #### H EMDF, TSH5, LIPD2, CMP3M #### [facility] [address] [place] [address] Hemoglobin (Bld) [Mass/Vol] 14.3 g/dL Normal 13.0-18.0 [facility] Comment on above: Performed By: #### H EMDF, TSH5, LIPD2, CMP3M #### [facility] [address] [place] [address] Lymphocytes (Bld) [#/Vol] 1.8 10*3/uL Normal 1.0-4.3 [facility] Comment on above: Performed By: #### H EMDF, TSH5, LIPD2, CMP3M #### [facility] [address] [place] [address] Lymphocytes/100 WBC (Bld) 21.5 % Normal 20.0-40.0 [facility] Comment on above: Performed By: #### H EMDF, TSH5, LIPD2, CMP3M #### [facility] [address] [place] [address] MCH (RBC) [Entitic mass] 31.2 pg Normal 26.0-34.0 [facility] Comment on above: Performed By: #### H EMDF, TSH5, LIPD2, CMP3M #### [facility] [address] [place] [address] MCHC 35.0 % Normal 32.0-36.0 [facility] Comment on above: Performed By: #### H EMDF, TSH5, LIPD2, CMP3M #### [facility] [address] [place] [address] MCV (RBC) [Entitic vol] 89.0 fL Normal 80.0-98.0 [facility] Comment on above: Performed By: #### H EMDF, TSH5, LIPD2, CMP3M #### [facility] [address] [place] [address] Monocytes (Bld) [#/Vol] 0.6 10*3/uL Normal 0.0-0.8 [facility] Comment on above: Performed By: #### H EMDF, TSH5, LIPD2, CMP3M #### [facility] [address] [place] [address] Monocytes/100 WBC (Bld) 7.6 % Normal 2.0-10.0 [facility] Comment on above: Performed By: #### H EMDF, TSH5, LIPD2, CMP3M #### [facility] [address] [place] [address] Platelet mean volume (Bld) [Entitic vol] 7.1 fL Low 7.4-12.4 [facility] Comment on above: Result Comment: MPV is a calculated measurement using platelet volume ratio. Performed By: #### H EMDF, TSH5, LIPD2, CMP3M #### [facility] [address] [place] [address] Platelets (Bld) [#/Vol] 203 10*3/uL Normal 140-440 [facility] Comment on above: Performed By: #### H EMDF, TSH5, LIPD2, CMP3M #### [facility] [address] [place] [address] RBC (Bld) [#/Vol] 4.58 10*6/uL Normal 4.40-5.90 [facility] Comment on above: Performed By: #### H EMDF, TSH5, LIPD2, CMP3M #### [facility] [address] [place] [address] WBC (Bld) [#/Vol] 8.6 10*3/uL Normal 3.6-10.7 [facility] Comment on above: Performed By: #### H EMDF, TSH5, LIPD2, CMP3M #### [facility] [address] [place] [address] Lipid Panelon 12-02-2021 Low Density Lipoprotein 54 mg/dL Normal <100 [facility] Comment on above: Performed By: #### H EMDF, TSH5, LIPD2, CMP3M #### [facility] [address] [place] [address] Triglyceride [Mass/Vol] 187 mg/dL Abnormal <150 [facility] Comment on above: Performed By: #### H EMDF, TSH5, LIPD2, CMP3M #### [facility] [address] [place] [address] Chol/HDL 5 Normal [facility] Comment on above: Result Comment: Ref Range: < 3 Low Risk for CHD 3-6 Mod Risk for CHD > 6 High Risk for CHD Performed By: #### H EMDF, TSH5, LIPD2, CMP3M #### [facility] [address] [place] [address] Cholesterol in HDL [Mass/Vol] 21 mg/dL Low 40-60 [facility] Comment on above: Performed By: #### H EMDF, TSH5, LIPD2, CMP3M #### [facility] [address] [place] [address] Cholesterol [Mass/Vol] 112 mg/dL Normal < 200 [facility] Comment on above: Performed By: #### H EMDF, TSH5, LIPD2, CMP3M #### [facility] [address] [place] [address] Cholesterol [Mass/Vol] 112 mg/dL NINF - 200 mg/dL [employer] Work Phone: Cholesterol in HDL [Mass/Vol] 21 mg/dL Low 40 - 60 mg/dL [employer] Work Phone: Cholesterol in LDL [Mass/Vol] 54 mg/dL NINF - 100 mg/dL [employer] Work Phone: Cholesterol.total/Cholest betina in HDL [Mass ratio] 5 {ratio} [employer] Work Phone: Comment on above: Ref Range: < 3 Low Risk for CHD 3-6 Mod Risk for CHD > 6 High Risk for CHD Triglyceride [Mass/Vol] 187 mg/dL Abnormal NINF - 150 mg/dL [facility] Work Phone: No Panel Informationon 12-02 Interpretation and review of laboratory results Abnormal [facility] Work Phone: Test Performed by [facility], [address] [place] [address] [facility] Work Phone: TSHon 12-02-2021 TSH Qn 2.706 u[IU]/mL 0.465 - 4.68 u[IU]/mL [facility] Work Phone: Test Performed by [facility], [address] [place] [address] [facility] Work Phone: Thyroid Stim. Hormoneon 10-0 Thyroid Stim. Hormone 2.706 u[IU]/mL Normal 0.465-4.68 0 [facility] Comment on above: Performed By: #### H EMDF, TSH5, LIPD2, CMP3M #### [facility] [address] [place] [address] Basic Metabolic Panelon 10-0 Calcium [Mass/Vol] 10.7 mg/dL High 8.4-10.4 [facility] Comment on above: Performed By: #### H EMDF, TSH5, LIPD2, CMP3M #### [facility] [address] [place] [address] Glucose [Mass/Vol] 122 mg/dL High 70-100 [facility] Comment on above: Performed By: #### H EMDF, TSH5, LIPD2, CMP3M #### [facility] [address] [place] [address] Anion gap [Moles/Vol] 9 mmol/L Normal 3-13 [facility] Comment on above: Performed By: #### H EMDF, TSH5, LIPD2, CMP3M #### [facility] [address] [place] [address] CO2 [Moles/Vol] 21 mmol/L Low 22-30 [facility] Comment on above: Performed By: #### H EMDF, TSH5, LIPD2, CMP3M #### [facility] [address] [place] [address] Creatinine [Mass/Vol] 1.34 mg/dL High 0.52-1.25 [facility] Comment on above: Performed By: #### H EMDF, TSH5, LIPD2, CMP3M #### [facility] [address] [place] [address] GFR/1.73 sq M.predicted among blacks MDRD (S/P/Bld) [Vol rate/Area] 66.2 mL/min/{1.73_m2} Normal >60 [facility] Comment on above: Performed By: #### H EMDF, TSH5, LIPD2, CMP3M #### [facility] [address] [place] [address] GFR/1.73 sq M.predicted among non-blacks MDRD (S/P/Bld) [Vol rate/Area] 57.1 mL/min/{1.73_m2} Abnormal >60 [facility] Comment on above: Result Comment: KDIG [...] #### H EMDF, TSH5, LIPD2, CMP3M #### [facility] [address] [place] [address] Urea nitrogen [Mass/Vol] 18 mg/dL High 7-17 [facility] Comment on above: Performed By: #### H EMDF, TSH5, LIPD2, CMP3M #### [facility] [address] [place] [address] Potassium [Moles/Vol] 4.0 mmol/L Normal 3.5-5.1 [facility] Comment on above: Performed By: #### H EMDF, TSH5, LIPD2, CMP3M #### [facility] [address] [place] [address] Sodium [Moles/Vol] 133 mmol/L Low 135-145 [facility] Comment on above: Performed By: #### H EMDF, TSH5, LIPD2, CMP3M #### [facility] [address] [place] [address] Chloride [Moles/Vol] 103 mmol/L Normal 98-107 [facility] Comment on above: Performed By: #### H EMDF, TSH5, LIPD2, CMP3M #### [facility] [address] [place] [address] Anion gap [Moles/Vol] 9 mmol/L 3 - 13 mmol/L [facility] Calcium [Mass/Vol] 10.7 mg/dL High 8.4 - 10. 4 mg/dL [facility] Chloride [Moles/Vol] 103 mmol/L 98 - 10 7 mmol/L [facility] CO2 [Moles/Vol] 21 mmol/L Low 22 - 30 mmol/L [facility] Creatinine [Mass/Vol] 1.34 mg/dL High 0.52 - 1.25 mg/dL [facility] EGFR IF NonAfrican Citizen Of [place] 57.1 mL/min Abnormal 60 - PINF mL/min [facility] Comment on above: KDIGO guidelines pro [...] vol] 7.7 fL 7.4 - 12.4 fL [facility] Comment on above: MPV is a calculated measurement using platelet volume ratio. Platelets (Bld) [#/Vol] 255 10*3/uL 140 - 440 10*3/uL [facility] RBC (Bld) [#/Vol] 5.18 10*6/uL 4.4 - 5.9 10*6/uL [facility] WBC (Bld) [#/Vol] 16.3 10*3/uL High 3.6 - 10.7 10*3/uL [facility] Test Performed by [facility], [address], [place], [place] [address] [facility] CR Chest Portableon 12-02-19 22 CR Chest Portable Patient Name: CORRIE QUEEN Diagnostic Radiology ACCESSION EXAM DATE/TIME PROCEDURE ORDERING PROVIDER [id number] 12/01/2021 12:48 EDT CR Chest Portable [id number] -TEMI LYNNE CPT code 65589 Reason For Exam (CR Chest Portable) sob [...] Transcribed Date and Time: 12/01/2021 2:32 Normal [facility] Complete Urinalysison 2021 Appearance (U) Clear Normal Clear [facility] Comment on above: Result Comment: . Performed By: #### C UA2 #### [facility] [address] [place] [address] Bilirubin,Urine Negative Normal Negative [facility] Comment on above: Result Comment: . Performed By: #### C UA2 #### [facility] [address] [place] [address] Color (U) Yellow Normal Lt. Yellow [facility] Comment on above: Result Comment: . Performed By: #### C UA2 #### [facility] [address] [place] [address] Glucose Ql (U) Normal Normal Normal (<70) [facility] Comment on above: Result Comment: . Performed By: #### C UA2 #### [facility] [address] [place] [address] Ketone,Urine Negative Normal Negative [facility] Comment on above: Result Comment: . Performed By: #### C UA2 #### [facility] [address] [place] [address] Leukocytes,Urine Negative Normal Negative [facility] Comment on above: Result Comment: . Performed By: #### C UA2 #### [facility] [address] [place] [address] Nitrites,Urine Negative Normal Negative [facility] Comment on above: Result Comment: . Performed By: #### C UA2 #### [facility] [address] [place] [address] Occult Blood,Urine Negative Normal Negative [facility] Comment on above: Result Comment: . Performed By: #### C UA2 #### [facility] [address] [place] [address] pH,Urine 6.0 Normal 5.0-8.0 [facility] Comment on above: Result Comment: . Performed By: #### C UA2 #### [facility] [address] [place] [address] Specific [place],Urine 1.015 Normal 1.005 - 1.030 [facility] Comment on above: Result Comment: . Performed By: #### C UA2 #### [facility] [address] [place] [address] Total Protein,Urine Negative Normal Negative [facility] Comment on above: Result Comment: . Performed By: #### C UA2 #### [facility] [address] [place] [address] Urobilinogen,Urine Normal Normal Normal (0-1) [facility] Comment on above: Result Comment: . Performed By: #### C UA2 #### [facility] [address] [place] [address] ECHO Complete 2D W Doppler W Coloron 12-01-2021 TRANSTHORACIC ECHOCARDIOGRAM PATIENT: Corrie Queen STUDY DATE: 12/01/2021 : 1960 AGE: 61 HT/WT: 182.9 cm (72 107.1 kg in) (235.5 lb) GENDER: M BP: 85 / 56 LOCATION: [facility] PATIENT Inpatient [facility] STATUS: *ORDERING PHYSICIAN: * Temi Lynne *READING PHYSICIAN: * Alyssa Ag MD *CHIEF BUILDING INSPECTOR: * Mari Parry -------- INDICATIONS: Chest pain. [...] ml/m^2 Aortic valve (more content not included)... [facility] Alyssa Ag MD - 12/01/2021 TRANSTHORACIC ECHOCARDIOGRAM PATIENT: Corrie Queen STUDY DATE: 12/01/2021 : 1960 AGE: 61 HT/WT: 182.9 cm (72 107.1 kg in) (235.5 lb) GENDER: M BP: 85 / 56 LOCATION: [facility] PATIENT Inpatient [facility] STATUS: *ORDERING PHYSICIAN: * Temi Lynne *READING PHYSICIAN: * Alyssa Ag MD *CHIEF BUILDING INSPECTOR: * Mari Parry -------- INDICATIONS: Chest pain. [...] 12/01/2021 17:40 P (more content not included)... [employer] Work Phone: ECHO Complete 2D W Doppler W ColorOrdered By: Alyssa Ag on 12-01-2021 [employer] Work Phone: ED Provider Noteon 2 ED Provider Note [facility] [place] ED eMERGENCY dEPARTMENT eNCOUnter Pt Name: Corrie Queen Birthdate 1960 Date of evaluation: 12/01/2021 Provider: EDMUND KAUR CHIEF COMPLAINT Chief Complaint Patient presents with Urinary Tract Infection Been treated outpt, getting worse. HISTORY OF PRESENT ILLNESS (Location/Symptom, Timing/Onset,Context/ Setting, Quality, Duration, Modifying Factors, Severity) Note limiting factors. HPI This patient was seen in conjunction with Dr. Leon who also interviewed and evaluated the patient at bedside. Corrie Queen is a 61 y.o. male who [...] Comment: rarely Drug use: Yes Types: Marijuana ([place]) Social Determinants of Health Financial Resource Strain: Low Risk Difficulty of Paying Living Expenses: Not hard at all Food Insecurity: No Food Insecurity Worried About Running Out of Food in the Last Year: Never true Ran Out of Food in the Last Year: Never true Transportation Needs: No Transportation Needs Lack of Transportation (Medical): No Lack of Transportation (Non-Medical): No SCREENINGS Melany Coma Scale Eye Opening: Spontaneous Best Verbal Response: Oriented Best Motor Response: Obeys commands [place] Coma Scale Score: 15 PHYSICAL EXAM (5+ [...] Constitutional: General: (more content not included)... Normal [facility] ED Provider Note Patient, Corrie Queen, is seen and examined in conjunction [...] documentation. Barry Leon MD 12/01/21 1018 Normal [facility] EKG 12 Leadon 12-01-2021 [facility] Test Date: 2021-12-01 Pat Name: CORRIE QUEEN Department: 2AED Room: 06 Gender: M Ssis Etl Developer: RE : 1960 Requested By: TEMI LYNNE Order Number: [id number] Reading MD: Barry Leon Measurements Intervals [place] Rate: 60 P: 55 MT: 190 QRS: -73 QRSD: 111 T: 30 QT: 427 QTc: 425 Interpretive Statements Sinus rhythm Inferior infarct, old Consider anterior infarct Compared to ECG from 05-23-12, no significant change Electronically Signed On 12-01-2021 14:06:11 EDT by Barry Leon [facility] Barry Leon MD - 12/01/2021 [facility] Test Date: 2021-12-01 Pat Name: CORRIE QUEEN Department: 2AED Room: 06 Gender: M Ssis Etl Developer: RE : 1960 Requested By: TEMI LYNNE Order Number: [id number] Reading : Barry Leon Measurements Intervals [place] Rate: 60 P: 55 MT: 190 QRS: -73 QRSD: 111 T: 30 QT: 427 QTc: 425 Interpretive Statements Sinus rhythm Inferior infarct, old Consider anterior infarct Compared to ECG from 05-23-12, no significant change Electronically Signed On 12-01-2021 14:06:11 EDT by Barry Leon [employer] Work Phone: EKG 12 LeadOrdered By: Barry Leon on 12-01-2021 [employer] Work Phone: Echo Complete w/wo Contrasto n 12-01-2021 Echo Complete w/wo Contrast Patient Name: CORRIE QUEEN Ultrasound ACCESSION EXAM DATE/TIME PROCEDURE ORDERING PROVIDER [id number] 12/01/2021 15:51 EDT Echo Complete w/wo [id number] -TEMI LYNNE Reason For Exam (Echo Complete w/wo Contrast) chest pain Report TRANSTHORACIC ECHOCARDIOGRAM PATIENT: Corrie Queen STUDY DATE: 12/01/2021 : 1960 AGE: 61 HT/WT: 182.9 cm (72 107.1 kg in) (235.5 lb) GENDER: M BP: 85 / 56 LOCATION: [facility] PATIENT Inpatient [facility] STATUS: *ORDERING PHYSICIAN: * Temi Lynne *READING PHYSICIAN: * Alyssa Ag MD *CHIEF BUILDING INSPECTOR: * Mari Parry -------- INDICATIONS: Chest pain. [...] lateral 10 (more content not included)... Normal [facility] [employer] Hemogram w/ Autodiffon 12-01 Abs Baso Cnt 0.0 10*3/uL Normal 0.0-0.2 [facility] Comment on above: Performed By: #### H EMDF, TSH5, LIPD2, CMP3M #### [employer] [address] [place] [address] Abs Neutrophile Cnt 13.8 10*3/uL High 1.8-7.0 [facility] Comment on above: Performed By: #### H EMDF, TSH5, LIPD2, CMP3M #### [employer] [address] [place] [address] Basophils/100 WBC (Bld) 0.2 % Normal 0.0-2.0 [facility] Comment on above: Performed By: #### H EMDF, TSH5, LIPD2, CMP3M #### [employer] [address] [place] [address] Eosinophils (Bld) [#/Vol] 0.9 10*3/uL High 0.0-0.5 [facility] Comment on above: Performed By: #### H EMDF, TSH5, LIPD2, CMP3M #### [facility] [address] [place] [address] Eosinophils/100 WBC (Bld) 5.7 % Normal 1.0-6.0 [facility] Comment on above: Performed By: #### H EMDF, TSH5, LIPD2, CMP3M #### [facility] [address] [place] [address] Erythrocyte distribution width (RBC) [Ratio] 13.6 % Normal 11.5-14.5 [facility] Comment on above: Performed By: #### H EMDF, TSH5, LIPD2, CMP3M #### [facility] [address] [place] [address] Granulocytes/100 WBC (Bld) 85.2 % High 40.0-80.0 [facility] Comment on above: Performed By: #### H EMDF, TSH5, LIPD2, CMP3M #### [facility] [address] [place] [address] Hematocrit (Bld) [Volume fraction] 45.8 % Normal 40.0-52.0 [facility] Comment on above: Performed By: #### H EMDF, TSH5, LIPD2, CMP3M #### [facility] [address] [place] [address] Hemoglobin (Bld) [Mass/Vol] 15.8 g/dL Normal 13.0-18.0 [facility] Comment on above: Performed By: #### H EMDF, TSH5, LIPD2, CMP3M #### [facility] [address] [place] [address] Lymphocytes (Bld) [#/Vol] 0.8 10*3/uL Low 1.0-4.3 [facility] Comment on above: Performed By: #### H EMDF, TSH5, LIPD2, CMP3M #### [facility] [address] [place] [address] Lymphocytes/100 WBC (Bld) 4.8 % Low 20.0-40.0 [facility] Comment on above: Performed By: #### H EMDF, TSH5, LIPD2, CMP3M #### [facility] [address] [place] [address] MCH (RBC) [Entitic mass] 30.5 pg Normal 26.0-34.0 [facility] Comment on above: Performed By: #### H EMDF, TSH5, LIPD2, CMP3M #### [facility] [address] [place] [address] MCHC 34.5 % Normal 32.0-36.0 [facility] Comment on above: Performed By: #### H EMDF, TSH5, LIPD2, CMP3M #### [facility] [address] [place] [address] MCV (RBC) [Entitic vol] 88.5 fL Normal 80.0-98.0 [facility] Comment on above: Performed By: #### H EMDF, TSH5, LIPD2, CMP3M #### [facility] [address] [place] [address] Monocytes (Bld) [#/Vol] 0.7 10*3/uL Normal 0.0-0.8 [facility] Comment on above: Performed By: #### H EMDF, TSH5, LIPD2, CMP3M #### [facility] [address] [place] [address] Monocytes/100 WBC (Bld) 4.1 % Normal 2.0-10.0 [facility] Comment on above: Performed By: #### H EMDF, TSH5, LIPD2, CMP3M #### [facility] [address] [place] [address] Platelet mean volume (Bld) [Entitic vol] 7.7 fL Normal 7.4-12.4 [facility] Comment on above: Result Comment: MPV is a calculated measurement using platelet volume ratio. Performed By: #### H EMDF, TSH5, LIPD2, CMP3M #### [facility] [address] [place] [address] Platelets (Bld) [#/Vol] 255 10*3/uL Normal 140-440 [facility] Comment on above: Performed By: #### H EMDF, TSH5, LIPD2, CMP3M #### [facility] [address] [place] [address] RBC (Bld) [#/Vol] 5.18 10*6/uL Normal 4.40-5.90 [facility] Comment on above: Performed By: #### H EMDF, TSH5, LIPD2, CMP3M #### [facility] [address] [place] [address] WBC (Bld) [#/Vol] 16.3 10*3/uL High 3.6-10.7 [facility] Comment on above: Performed By: #### H EMDF, TSH5, LIPD2, CMP3M #### [facility] [address] [place] [address] Hepatic Functionon 2 ALT [Catalytic activity/Vol] 20 U/L Normal 0-49 [facility] Comment on above: Result Comment: The ALT test is performed by an updated assay method. Please note that the reference intervals have been changed and are now sex specific. Performed By: #### H EMDF, TSH5, LIPD2, CMP3M #### [facility] [address] [place] [address] ALP [Catalytic activity/Vol] 58 U/L Normal 38-126 [facility] Comment on above: Performed By: #### H EMDF, TSH5, LIPD2, CMP3M #### [facility] [address] [place] [address] AST [Catalytic activity/Vol] 27 U/L Normal 15-46 [facility] Comment on above: Performed By: #### H EMDF, TSH5, LIPD2, CMP3M #### [facility] [address] [place] [address] Bilirubin [Mass/Vol] 0.7 mg/dL Normal 0.2-1.3 [facility] Comment on above: Performed By: #### H EMDF, TSH5, LIPD2, CMP3M #### [facility] [address] [place] [address] Bilirubin.indirect [Mass/Vol] 0.0 mg/dL Normal 0.0-0.3 [facility] Comment on above: Performed By: #### H EMDF, TSH5, LIPD2, CMP3M #### [facility] [address] [place] [address] Protein [Mass/Vol] 7.8 g/dL Normal 6.3-8.2 [facility] Comment on above: Performed By: #### H EMDF, TSH5, LIPD2, CMP3M #### [facility] [address] [place] [address] Albumin [Mass/Vol] 4.4 g/dL Normal 3.5-5.0 [facility] Comment on above: Performed By: #### H EMDF, TSH5, LIPD2, CMP3M #### [facility] [address] [place] [address] Hepatic Function Panelon Albumin [Mass/Vol] 4.4 g/dL 3.5 - 5 g/dL [facility] ALP (Bld) [Catalytic activity/Vol] 58 U/L 38 - 126 U/L [facility] ALT [Catalytic activity/Vol] 20 U/L 0 - 49 U/L [facility] Comment on above: The ALT test is perf ormed by an updated assay method. Please note that the reference intervals have been changed and are now sex specific. AST [Catalytic activity/Vol] 27 U/L 15 - 46 U/L [facility] Bilirubin [Mass/Vol] 0.7 mg/dL 0.2 - 1 .3 mg/dL [facility] Bilirubin.indirect [Mass/Vol] 0.0 mg/dL 0 - 0.3 mg/dL [facility] Protein [Mass/Vol] 7.8 g/dL 6.3 - 8.2 g/dL [facility] Lactate, Sepsison 12-01-2021 Lactate [Moles/Vol] 1.1 mmol/L 0.7 - 2 mmol/L [facility] Test Performed by [facility], [address] [place], [place] [id number] [place] [address] [facility] Lactic Acid, Sepsison 2021 Lactate [Moles/Vol] 1.1 mmol/L Normal 0.7-2.0 [facility] Comment on above: Performed By: #### H EMDF, TSH5, LIPD2, CMP3M #### [facility] [address] [place] [address] Lipaseon 12-01-2021 Lipase [Catalytic activity/Vol] 24 U/L Normal 23-300 [facility] Comment on above: Performed By: #### H EMDF, TSH5, LIPD2, CMP3M #### [facility] [address] [place] [address] Lipase [Catalytic activity/Vol] 24 U/L 23 - 300 U/L [facility] No Panel Informationon 12-01 Test Performed by [facility], [address] [place], [place] [id number] [place] [address] [facility] Troponinon 12-01-2021 Troponin I.cardiac [Mass/Vol] ng/mL 0 - 0.034 ng/mL [facility] Work Phone: Comment on above: . Test Performed by [facility], [facility] [address] [facility] Work Phone: Troponin Ion 12-01-2021 Troponin I.cardiac [Mass/Vol] ng/mL Normal 0.000-0.034 [facility] Comment on above: Result Comment: . Performed By: #### H EMDF, TSH5, LIPD2, CMP3M #### [facility] [address] [place] [address] Urinalysison 12-01-2021 Appearance (U) Clear Clear NA [...] [pH] [facility] Comment on above: . Specific [place], Urine 1.015 [facility] Comment on above: . Total Protein, Urine Negative Negativ e mg/dL [facility] Comment on above: . Urobilinogen, Urine Normal Normal (0-1) mg/dL [facility] Comment on above: . Test Performed by [facility], [address] [place], [place] [id number] [place] [address] [facility] XR CHEST PORTABLEon 12-02-19 Patient Name: CORRIE QUEEN Diagnostic Radiology ACCESSION EXAM DATE/TIME PROCEDURE ORDERING PROVIDER [id number] 12/01/2021 12:48 EDT CR Chest Portable [id number] -TAYAL, TEMI CPT code 48394 Reason For Exam (CR Chest Portable) sob [...] AHMAD Transcribed Date and Time: 12/01/2021 2:32 [facility] Hema Miller MD - 12/01/2021 Patient Name: CORRIE QUEEN Diagnostic Radiology ACCESSION EXAM DATE/TIME PROCEDURE ORDERING PROVIDER [id number] 12/01/2021 12:48 EDT CR Chest Portable [id number] -TAYAL, TEMI CPT code 41555 Reason For Exam (CR Chest Portable) sob [...] AHMAD Transcribed Date and Time: 12/01/2021 2:32 [facility] Work Phone: Radiology Study observation (narrative) [facility] Work Phone: XR CHEST PORTABLEOrdered By: Hema Miller on 12-01-2021 [facility] Work Phone: CULTURE URINEon 11-29-2021 CULTURE URINE CULTURE URINE --> Status: F No growth (<1,000 CFU/ml). Normal [facility] Comment on above: Performed By: #### C UA2 #### [place] [address] [place] [address] Basic Metabolic Panelon 10-0 Anion gap [Moles/Vol] 10 mmol/L Normal 3-13 [facility] Comment on above: Performed By: #### H EMDF, TSH5, LIPD2, CMP3M #### [facility] [address] [place] [address] Calcium [Mass/Vol] 11.3 mg/dL High 8.4-10.4 [facility] Comment on above: Performed By: #### H EMDF, TSH5, LIPD2, CMP3M #### [facility] [address] [place] [address] CO2 [Moles/Vol] 21 mmol/L Low 22-30 [facility] Comment on above: Performed By: #### H EMDF, TSH5, LIPD2, CMP3M #### [facility] [address] [place] [address] Glucose [Mass/Vol] 135 mg/dL High 70-100 [facility] Comment on above: Performed By: #### H EMDF, TSH5, LIPD2, CMP3M #### [facility] [address] [place] [address] Urea nitrogen [Mass/Vol] 20 mg/dL High 7-17 [facility] Comment on above: Performed By: #### H EMDF, TSH5, LIPD2, CMP3M #### [facility] [address] [place] [address] Creatinine [Mass/Vol] 1.33 mg/dL High 0.52-1.25 [facility] Comment on above: Performed By: #### H EMDF, TSH5, LIPD2, CMP3M #### [facility] [address] [place] [address] GFR/1.73 sq M.predicted among blacks MDRD (S/P/Bld) [Vol rate/Area] 66.8 mL/min/{1.73_m2} Normal >60 [facility] Comment on above: Performed By: #### H EMDF, TSH5, LIPD2, CMP3M #### [facility] [address] [place] [address] GFR/1.73 sq M.predicted among non-blacks MDRD (S/P/Bld) [Vol rate/Area] 57.6 mL/min/{1.73_m2} Abnormal >60 [facility] Comment on above: Result Comment: KDIG [...] #### H EMDF, TSH5, LIPD2, CMP3M #### [facility] [address] [place] [address] Chloride [Moles/Vol] 105 mmol/L Normal 98-107 [facility] Comment on above: Performed By: #### H EMDF, TSH5, LIPD2, CMP3M #### [facility] [address] [place] [address] Potassium [Moles/Vol] 3.9 mmol/L Normal 3.5-5.1 [facility] Comment on above: Performed By: #### H EMDF, TSH5, LIPD2, CMP3M #### [facility] [address] [place] [address] Sodium [Moles/Vol] 136 mmol/L Normal 135-145 [facility] Comment on above: Performed By: #### H EMDF, TSH5, LIPD2, CMP3M #### [facility] [address] [place] [address] CT Abdomen/Pelvis w/o Contra ston 11-28-2021 CT Abdomen/Pelvis w/o Contrast Patient Name: CORRIE QUEEN Computed Tomography ACCESSION EXAM DATE/TIME PROCEDURE ORDERING PROVIDER [id number] 11/27/2021 23:[address] Abdomen/Pelvis (No MD MIKE, TC PO, No IV) CPT code 00489 Reason For Exam (CT Abdomen/Pelvis (No PO, [...] Transcribed Date and Time: 11/27/2021 11:11 Normal [facility] Complete Urinalysison 2021 Bacteria LM.HPF (Urine sed) [#/Area] Negative Normal Negative [facility] Comment on above: Result Comment: . Performed By: #### C UA2 #### [facility] [address] [place], [place] [id number] Mucous Threads Few Normal Negative [facility] Comment on above: Result Comment: . Performed By: #### C UA2 #### [facility] [address] [place] [address] RBC, Urine 0 - 2 Normal 0-2 [facility] Comment on above: Result Comment: . Performed By: #### C UA2 #### [facility] [address] [place] [address] Squamous Epithelial 0 - 2 Normal 3-5 [facility] Comment on above: Result Comment: . Performed By: #### C UA2 #### [facility] [address] [place] [address] VOLUME, URINE 12 ml Normal [facility] Comment on above: Result Comment: . Performed By: #### C UA2 #### [facility] [address] [place] [address] WBC, Urine 3 - 5 Normal 0-5 [facility] Comment on above: Result Comment: . Performed By: #### C UA2 #### [facility] [address] [place] [address] Appearance (U) Clear Normal Clear [facility] Comment on above: Result Comment: . Performed By: #### C UA2 #### [facility] [address] [place] [address] Bilirubin,Urine Negative Normal Negative [facility] Comment on above: Result Comment: . Performed By: #### C UA2 #### [facility] [address] [place] [address] Color (U) LIGHT YELLOW Normal Lt. Yellow [facility] Comment on above: Result Comment: . Performed By: #### C UA2 #### [facility] [address] [place] [address] Glucose Ql (U) Normal Normal Normal (<70) [facility] Comment on above: Result Comment: . Performed By: #### C UA2 #### [facility] [address] [place] [address] Ketone,Urine Negative Normal Negative [facility] Comment on above: Result Comment: . Performed By: #### C UA2 #### [facility] [address] [place] [address] Leukocytes,Urine 25 Irina/uL Abnormal Negative [facility] Comment on above: Result Comment: . Performed By: #### C UA2 #### [facility] [address] [place] [address] Nitrites,Urine Negative Normal Negative [facility] Comment on above: Result Comment: . Performed By: #### C UA2 #### [facility] [address] [place] [address] Occult Blood,Urine Negative Normal Negative [facility] Comment on above: Result Comment: . Performed By: #### C UA2 #### [facility] [address] [place] [address] pH,Urine 5.0 Normal 5.0-8.0 [facility] Comment on above: Result Comment: . Performed By: #### C UA2 #### [facility] [address] [place] [address] Specific [place],Urine 1.011 Normal 1.005 - 1.030 [facility] Comment on above: Result Comment: . Performed By: #### C UA2 #### [facility] [address] [place] [address] Total Protein,Urine Negative Normal Negative [facility] Comment on above: Result Comment: . Performed By: #### C UA2 #### [facility] [address] [place] [address] Urobilinogen,Urine Normal Normal Normal (0-1) [facility] Comment on above: Result Comment: . Performed By: #### C UA2 #### [facility] [address] [place] [address] Hemogram w/ Autodiffon 11-28 Abs Baso Cnt 0.1 10*3/uL Normal 0.0-0.2 [facility] Comment on above: Performed By: #### H EMDF, TSH5, LIPD2, CMP3M #### [facility] [address] [place] [address] Abs Neutrophile Cnt 11.8 10*3/uL High 1.8-7.0 [facility] Comment on above: Performed By: #### H EMDF, TSH5, LIPD2, CMP3M #### [facility] [address] [place] [address] Basophils/100 WBC (Bld) 0.4 % Normal 0.0-2.0 [facility] Comment on above: Performed By: #### H EMDF, TSH5, LIPD2, CMP3M #### [facility] [address] [place] [address] Eosinophils (Bld) [#/Vol] 0.3 10*3/uL Normal 0.0-0.5 [facility] Comment on above: Performed By: #### H EMDF, TSH5, LIPD2, CMP3M #### [facility] [address] [place] [address] Eosinophils/100 WBC (Bld) 2.5 % Normal 1.0-6.0 [facility] Comment on above: Performed By: #### H EMDF, TSH5, LIPD2, CMP3M #### [facility] [address] [place] [address] Erythrocyte distribution width (RBC) [Ratio] 13.2 % Normal 11.5-14.5 [facility] Comment on above: Performed By: #### H EMDF, TSH5, LIPD2, CMP3M #### [facility] [address] [place] [address] Granulocytes/100 WBC (Bld) 86.0 % High 40.0-80.0 [facility] Comment on above: Performed By: #### H EMDF, TSH5, LIPD2, CMP3M #### [facility] [address] [place] [address] Hematocrit (Bld) [Volume fraction] 47.1 % Normal 40.0-52.0 [facility] Comment on above: Performed By: #### H EMDF, TSH5, LIPD2, CMP3M #### [facility] [address] [place] [address] Hemoglobin (Bld) [Mass/Vol] 17.0 g/dL Normal 13.0-18.0 [facility] Comment on above: Performed By: #### H EMDF, TSH5, LIPD2, CMP3M #### [facility] [address] [place] [address] Lymphocytes (Bld) [#/Vol] 0.8 10*3/uL Low 1.0-4.3 [facility] Comment on above: Performed By: #### H EMDF, TSH5, LIPD2, CMP3M #### [facility] [address] [place] [address] Lymphocytes/100 WBC (Bld) 5.5 % Low 20.0-40.0 [facility] Comment on above: Performed By: #### H EMDF, TSH5, LIPD2, CMP3M #### [facility] [address] [place] [address] MCH (RBC) [Entitic mass] 31.6 pg Normal 26.0-34.0 [facility] Comment on above: Performed By: #### H EMDF, TSH5, LIPD2, CMP3M #### [facility] [address] [place] [address] MCHC 36.1 % High 32.0-36.0 [facility] Comment on above: Performed By: #### H EMDF, TSH5, LIPD2, CMP3M #### [facility] [address] [place] [address] MCV (RBC) [Entitic vol] 87.5 fL Normal 80.0-98.0 [facility] Comment on above: Performed By: #### H EMDF, TSH5, LIPD2, CMP3M #### [facility] [address] [place] [address] Monocytes (Bld) [#/Vol] 0.7 10*3/uL Normal 0.0-0.8 [facility] Comment on above: Performed By: #### H EMDF, TSH5, LIPD2, CMP3M #### [place] [address] [place] [address] Monocytes/100 WBC (Bld) 5.2 % Normal 2.0-10.0 [facility] Comment on above: Performed By: #### H EMDF, TSH5, LIPD2, CMP3M #### [facility] [address] [place] [address] Platelet mean volume (Bld) [Entitic vol] 9.0 fL Normal 7.4-12.4 [facility] Comment on above: Result Comment: MPV is a calculated measurement using platelet volume ratio. Performed By: #### H EMDF, TSH5, LIPD2, CMP3M #### [place] [address] [place] [address] Platelets (Bld) [#/Vol] 240 10*3/uL Normal 140-440 [facility] Comment on above: Performed By: #### H EMDF, TSH5, LIPD2, CMP3M #### [facility] [address] [place] [address] RBC (Bld) [#/Vol] 5.38 10*6/uL Normal 4.40-5.90 [facility] Comment on above: Performed By: #### H EMDF, TSH5, LIPD2, CMP3M #### [place] [address] [place] [address] WBC (Bld) [#/Vol] 13.7 10*3/uL High 3.6-10.7 [facility] Comment on above: Performed By: #### H EMDF, TSH5, LIPD2, CMP3M #### [facility] [employer] [facility] [address] [place] [address] Basic Metabolic Panelon 10-0 Anion gap [Moles/Vol] 10 mmol/L 3 - 13 mmol/L [facility] Work Phone: Calcium [Mass/Vol] 11.3 mg/dL High 8.4 - 10. 4 mg/dL [employer] Work Phone: Chloride [Moles/Vol] 105 mmol/L 98 - 10 7 mmol/L [facility] Work Phone: CO2 [Moles/Vol] 21 mmol/L Low 22 - 30 mmol/L [facility] Work Phone: Creatinine [Mass/Vol] 1.33 mg/dL High 0.52 - 1.25 mg/dL [employer] Work Phone: EGFR IF NonAfrican Citizen Of [place] 57.6 mL/min Abnormal 60 - PINF mL/min [facility] Work Phone: Comment on above: KDIGO guidelines [...] rate/Area] 66.8 mL/min/{1.73_m2} 60 - PINF mL/min [employer] Work Phone: 1 Glucose [Mass/Vol] 135 mg/dL High 70 - 100 mg/dL [employer] Work Phone: Potassium [Moles/Vol] 3.9 mmol/L 3.5 - 5.1 mmol/L [employer] Work Phone: Sodium [Moles/Vol] 136 mmol/L 135 - 145 mmol/L [employer] Work Phone: Urea nitrogen (BldV) [Mass/Vol] 20 mg/dL High 7 - 17 mg/dL [employer] Work Phone: 1 CBC with Auto Differentialon 11-27-2021 Absolute Baso # 0.1 10*3/uL 0 - 0.2 10*3/uL [employer] Work Phone: Absolute Neut # 11.8 10*3/uL High 1.8 - 7 10*3/uL [employer] Work Phone: Basophils/100 WBC (Bld) 0.4 % 0 - 2 % [facility] Work Phone: Eosinophils (Bld) [#/Vol] 0.3 10*3/uL 0 - 0.5 10*3/uL [employer] Work Phone: Eosinophils/100 WBC (Bld) 2.5 % 1 - 6 % [facility] Work Phone: Granulocytes/100 WBC (Bld) 86.0 % High 40 - 80 % [facility] Work Phone: Hematocrit (Bld) [Volume fraction] 47.1 % 40 - 52 % [employer] Work Phone: Hemoglobin (Bld) [Mass/Vol] 17.0 g/dL 13 - 18 g/dL [employer] Work Phone: Interpretation and review of laboratory results Abnormal [employer] Work Phone: Lymphocytes (Bld) [#/Vol] 0.8 10*3/uL Low 1 - 4.3 10*3/uL [employer] Work Phone: Lymphocytes/100 WBC (Bld) 5.5 % Low 20 - 40 % [facility] Work Phone: MCH (RBC) [Entitic mass] 31.6 pg 26 - 34 pg [facility] Work Phone: MCHC (RBC) [Mass/Vol] 36.1 % High 32 - 36 % [facility] Work Phone: MCV (RBC) [Entitic vol] 87.5 fL 80 - 98 fL S [facility] Work Phone: Monocytes (Bld) [#/Vol] 0.7 10*3/uL 0 - 0.8 10*3/uL [facility] Work Phone: Monocytes/100 WBC (Bld) 5.2 % 2 - 10 % [facility] Work Phone: Platelet distribution width (Bld) [Ratio] 13.2 % 11.5 - 14.5 % [facility] Work Phone: Platelet mean volume (Bld) [Entitic vol] 9.0 fL 7.4 - 12.4 fL [facility] Work Phone: Comment on above: MPV is a calculated measurement using platelet volume ratio. Platelets (Bld) [#/Vol] 240 10*3/uL 140 - 440 10*3/uL [facility] Work Phone: RBC (Bld) [#/Vol] 5.38 10*6/uL 4.4 - 5.9 10*6/uL [facility] Work Phone: WBC (Bld) [#/Vol] 13.7 10*3/uL High 3.6 - 10.7 10*3/uL [facility] Work Phone: Test Performed by [facility], [facility] [place] , [address] LAB [facility] Work Phone: CT Abdomen Pelvis Wo Contras ton 11-27-2021 Patient Name: CORRIE QUEEN Computed Tomography ACCESSION EXAM DATE/TIME PROCEDURE ORDERING PROVIDER [id number] 11/27/2021 23:[address] Abdomen/Pelvis (No MD MIKE, TC PO, No IV) CPT code 70058 Reason For Exam (CT Abdomen/Pelvis (No PO, [...] WENDELL Transcribed Date and Time: 11/27/2021 11:11 [facility] Darrick Luke MD - 11/27/2021 Patient Name: CORRIE QUEEN Computed Tomography ACCESSION EXAM DATE/TIME PROCEDURE ORDERING PROVIDER [id number] 11/27/2021 23:[address] Abdomen/Pelvis (No MD MIKE, TC PO, No IV) CPT code 88442 Reason For Exam (CT Abdomen/Pelvis (No PO, [...] WENDELL Transcribed Date and Time: 11/27/2021 11:11 [facility] Work Phone: Radiology Study observation (narrative) [facility] Work Phone: CT Abdomen Pelvis Wo Contras tOrdered By: Darrick Luke on 11-27-2021 [facility] Work Phone: No Panel Informationon 11-27 Interpretation and review of laboratory results Abnormal [facility] Work Phone: Test Performed by [facility], [facility] [place] , [place], [place] [address] [facility] Work Phone: [phone] Urinalysison 11-27-2021 Appearance (U) Clear Clear NA [facility] Work Phone: [phone] Comment on above: . Bacteria, UA Negative Negative /[HPF] [facility] Work Phone: [phone] Comment on above: . Bilirubin Urine Negative Negative mg/dL [facility] Work Phone: [phone] Comment on above: . Color (U) LIGHT YELLOW Lt. Yellow NA [facility] Work Phone: [phone] Comment on above: . Glucose, Ur Normal Normal (<70) mg/dL [facility] Work Phone: [phone] Comment on above: . Ketones Ql (U) Negative Negative mg/dL [facility] Work Phone: [phone] Comment on above: . LEUKOCYTES, UA 25 Abnormal Negative Irina/uL [facility] Work Phone: [phone] Comment on above: . Mucous Threads Few Negative /[LPF] [facility] Work Phone: [phone] Comment on above: . Nitrite, Urine Negative Negative NA [facility] Work Phone: [phone] Comment on above: . Occult Blood,Urine Negative Negative mg/dL [facility] Work Phone: [phone] Comment on above: . pH (U) 5.0 [pH] [facility] Work Phone: [phone] Comment on above: . RBC, UA /[HPF] 0 - 2 /[HPF] [facility] Work Phone: [phone] Comment on above: . Specific [place], Urine 1.011 S [facility] Work Phone: [phone] Comment on above: . Squam Epithel, UA 0-2 3 - 5 /[HPF] [facility] Work Phone: [phone] Comment on above: . Total Protein, Urine Negative Negativ e mg/dL [facility] Work Phone: [phone] Comment on above: . Urobilinogen, Urine Normal Normal (0-1) mg/dL [facility] Work Phone: [phone] Comment on above: . Volume 12 ml [facility] Work Phone: Comment on above: . WBC, UA /[HPF] 0 - 5 /[HPF] [facility] Work Phone: Comment on above: . MRI Brain w/ + w/o Contrasto n 10-18-2021 MRI Brain w/ + w/o Contrast [facility]: [id number] ACCESSION EXAM DATE/TIME PROCEDURE ORDERING PROVIDER [id number] 10/18/2021 12:20 EDT MRI Brain w/ + w/o [id number], Contrast ROCIO CPT code 80477 Reason For Exam (MRI Brain w/ + [...] Transcribed Date and Time: 10/20/2021 8:17 Normal [facility] OT Bone Density DEXA Francisco Ske river 04-12-2021 OT Bone Density DEXA Francisco Skeleton Patient Name: CORRIE QUEEN Bone Density ACCESSION EXAM DATE/TIME PROCEDURE ORDERING PROVIDER [id number] 04/12/2021 09:15 EST OT Bone Density DEXA Francisco DO BENITO RYAN D Skeleton CPT code 12549 Reason For Exam (OT Bone Density DEXA Francisco Skeleton) osteoporosis evaluation. elevated PTH Report DXA BONE DENSITOMETRY: CLINICAL INDICATION: osteoporosis evaluation. elevated PTH. Screening for osteoporosis. COMPARISON: None TECHNIQUE: Quantitative bone mineral densitometry of the hip, radius and lumbar spine was performed with a dual energy x-ray observed absorptiometry device - Talasim at some institutions, HOLOGIC at others. Regions [...] recommendations for prevention of bone loss include: 0853-3156 mg calcium intake per day for adults [...] [place] of Knowledge Evidence - based Summaries. [facility] [employer] 2017. Report Dictated on Final Dictating Physician: MD VOGT JAMES Signed Date and Time: 04/13/2021 12:02 pm Signed by: MD VOGT JAMES Transcribed Date and Time: 04/13/2021 12:04 Normal [facility] OT Bone Density DEXA Axial S steve 04-12-2021 OT Bone Density DEXA Axial Skeleton Patient Name: CORRIE QUEEN Bone Density ACCESSION EXAM DATE/TIME PROCEDURE ORDERING PROVIDER [id number] 04/12/2021 09:15 EST OT Bone Density DEXA DO BENITO RYAN D Axial Skeleton CPT code 29369 Reason For Exam (OT Bone Density DEXA Axial Skeleton) osteoporosis, at risk for osteoporosis. Report DXA BONE DENSITOMETRY: CLINICAL INDICATION: osteoporosis evaluation. elevated PTH. Screening for osteoporosis. COMPARISON: None TECHNIQUE: Quantitative bone mineral densitometry of the hip, radius and lumbar spine was performed with a dual energy x-ray observed absorptiometry device - [employer] at some institutions, HOLOGIC at others. Regions [...] recommendations for prevention of bone loss include: 0530-6062 mg calcium intake per day for adults [...] [place] of Knowledge Evidence - based Summaries. [facility] [employer] for Education and Research 2017. Report Dictated on Final Dictating Physician: MD VOGT JAMES Signed Date and Time: 04/13/2021 12:02 pm Signed by: MD VOGT JAMES Transcribed Date and Time: 04/13/2021 12:03 Normal [facility] Comprehensive Metabolic Pane sumeet 12-26-2018 Albumin [Mass/Vol] 4.8 g/dL 3.5 - 5 g/dL [place], [place] ALP [Catalytic activity/Vol] 51 U/L 38 - 126 U/L [place] ALT [Catalytic activity/Vol] 30 U/L 13 - 69 U/L [place] Anion gap [Moles/Vol] 8 mmol/L [place] AST [Catalytic activity/Vol] 25 U/L 15 - 46 U/L [place] Bilirubin Ql (U) 0.4 mg/dL 0.2 - 1.3 mg/dL [place] Calcium [Mass/Vol] 11.3 mg/dL High 8.4 - 10. 4 mg/dL [place] Chloride [Moles/Vol] 108 mmol/L High 98 - 10 7 mmol/L [place] CO2 [Moles/Vol] 24 mmol/L 22 - 30 mmol/L [place] Creatinine [Mass/Vol] 1.23 mg/dL 0.52 - 1.25 mg/dL [place] EGFR IF NonAfrican Citizen Of [place] >60.0 >60 mL/min [place] Comment on above: Source- MDRD equatio n with creatinine calibration to IDMS(NKDEP) eGFR not recommended for drug dose adjustment GFR/1.73 sq M predicted among blacks MDRD (S/P/Bld) [Vol rate/Area] mL/min/{1.73_m2} >60 mL/min [place] Glucose [Mass/Vol] 104 mg/dL High 70 - 100 mg/dL [place] Interpretation and review of laboratory results Abnormal [place] Potassium [Moles/Vol] 4.3 mmol/L 3.5 - 5.1 mmol/L [place] Protein [Mass/Vol] 7.7 g/dL 6.3 - 8.2 g/dL [place] Sodium [Moles/Vol] 140 mmol/L 135 - 145 mmol/L [place] Urea nitrogen [Mass/Vol] 19 mg/dL 7 - 20 mg/dL [place] Test Performed by [facility], [address] [place] [address] Creatinine, 24 HR Urineon Creatinine, 24H Ur 1.8 g/(24.h) 1 - 1.8 g/(24.h) [place] Creatinine, Urine 94.3 mg/dL [place] Otheron 12-26-2018 Test Performed by [facility] [place] [facility], [address] [facility] [place], [place] [address] [place] POCT calcium ionizedon 12-26 Interpretation and review of laboratory results Abnormal [place] PH, IONIZED CALCIUM 7.36 [place] POC Ionized Calcium 5.30 mg/dL High 4.3 - 5. 2 mg/dL [place] Comment on above: Performed by CLIA ID : [id number] [place], [place] Test Performed by [facility] [place] [facility], [address] , [address] PTH, [place] 12-26-2018 Pth Intact 27 pg/mL 15 - 63 pg/mL [place] Test Performed by [facility], [address], [place], [place] [id number] [place] [address] Prolactinon 12-26-2018 Prolactin 13.7 ng/mL 3.7 - 17.9 ng/mL [place] Test Performed by [facility] [place] [facility], [address], [address] Sodium, urine, 24 houron Interpretation and review of laboratory results Abnormal [place] Sodium, 24H Ur 238 mmol/(24.h) High 40 - 220 mmol/(24.h) [place] Total Volume 1950 mL [place] T4, Freeon 12-26-2018 Free T4 [Mass/Vol] 0.87 ng/dL 0.78 - 2. 19 ng/dL [place] Test Performed by [facility] [place] [facility], [address] , [address] TSH without Reflexon 019 TSH Qn 3.019 u[IU]/mL 0.465 - 4.68 u[IU]/mL [place] Test Performed by [facility] [facility], [address] , [address] Vitamin D 25 Hydroxyon 12-26 Vit D, 25-Hydroxy 40 ng/mL 30 - 100 ng/mL [place] Comment on above: Therapy is based on measurement of Total 25-OHD with the following classification levels: Less than 20 ng/mL: Indicative of Vit D deficiency 20-30 ng/mL: Suggests Vit D insufficiency Optimal: Greater than or equal to 30 ng/mL Test performed by [employer], measuring Total Vitamin D, not individual fractions. Test Performed by [facility], [address], [address] Vital Signs Date Time Vital Sign Value Performing Clinician Joana beaulieu 08-11-2024 15:31-0400 Body height 187.96 cm Dolly Clarke PA Work Phone: [facility] 08-11-2024 15:31-0400 Body mass index (BMI) [Ratio] 30 kg/m2 Dolly Clarke PA Work Phone: [facility] 08-11-2024 15:31-0400 Body temperature 97.4 [degF] Dolly Clarke PA Work Phone: [facility] 08-11-2024 15:31-0400 Body weight 106.25 kg Dolly Clarke PA Work Phone: [facility] 08-11-2024 15:31-0400 Diastolic blood pressure 60 mm[Hg] Dolly Clarke PA Work Phone: [facility] 08-11-2024 15:31-0400 Heart rate 83 /min Dolly Clarke PA Work Phone: [facility] 08-11-2024 15:31-0400 Respiratory rate 16 /min Dolly Clarke PA Work Phone: [facility] 08-11-2024 15:31-0400 SaO2% (BldA) [Mass fraction] 92 % Dolly Clarke PA Work Phone: [facility] 08-11-2024 15:31-0400 Systolic blood pressure 102 mm[Hg] Dolly Clarke PA Work Phone: [facility] 08-02-2024 10:26-0400 Body temperature 97.8 [degF] Dolly Clarke PA Work Phone: [facility] 08-02-2024 10:26-0400 Diastolic blood pressure 83 mm[Hg] Dolly Clarke PA Work Phone: [facility] 08-02-2024 10:26-0400 Heart rate 66 /min Dolly Clarke PA Work Phone: [facility] 08-02-2024 10:26-0400 Respiratory rate 15 /min Dolly Clarke PA Work Phone: [facility] 08-02-2024 10:26-0400 SaO2% (BldA) [Mass fraction] 97 % Dolly Clarke PA Work Phone: [facility] 08-02-2024 10:26-0400 Systolic blood pressure 125 mm[Hg] Dolly Clarke PA Work Phone: [facility] 08-02-2024 08:47-0400 Body height 187.96 cm Dolly Clarke PA Work Phone: [facility] 08-02-2024 08:47-0400 Body mass index (BMI) [Ratio] 29.9 kg/m2 Dolly Clarke PA Work Phone: [facility] 08-02-2024 08:47-0400 Body weight 105.68 kg Dolly Clarke PA Work Phone: [facility] 07-17-2024 08:15-0400 Body mass index (BMI) [Ratio] 30.2 kg/m2 Dolly Clarke PA Work Phone: [facility] 07-17-2024 08:15-0400 Body weight 106.76 kg Dolly Clarke PA Work Phone: [facility] 07-17-2024 08:15-0400 Diastolic blood pressure 82 mm[Hg] Dolly Clarke PA Work Phone: [facility] 07-17-2024 08:15-0400 Heart rate 70 /min Dolly Clarke PA Work Phone: [facility] 07-17-2024 08:15-0400 SaO2% (BldA) [Mass fraction] 95 % Dolly Clarke PA Work Phone: [facility] 07-17-2024 08:15-0400 Systolic blood pressure 153 mm[Hg] Dolly Clarke PA Work Phone: [facility] 05-28-2024 12:18-0400 Body height 187.96 cm Sanjana VENEGAS Work Phone: [facility] 05-28-2024 12:18-0400 Body temperature 97.9 [degF] Sanjana Garciao [employer] ADMINISTRATOR[employer] Work Phone: [facility] 05-28-2024 12:18-0400 Diastolic blood pressure 76 mm[Hg] Sanjanajazzy Gillullo [employer] ADMINISTRATOR[employer] Work Phone: [facility] 05-28-2024 12:18-0400 Heart rate 80 /min Sanjana Garciao [employer] ADMINISTRATOR[employer] Work Phone: [facility] 05-28-2024 12:18-0400 SaO2% (BldA) [Mass fraction] 95 % Sanjanajazzy Gillullo [employer] ADMINISTR[employer] Work Phone: [facility] 05-28-2024 12:18-0400 Systolic blood pressure 122 mm[Hg] Sanjana Gillullo [employer] ADMINISTR[employer] Work Phone: [facility] 03-31-2024 10:21-0500 Body mass index (BMI) [Ratio] 30.5 kg/m2 Sanjana Gillullo [employer] Work Phone: [facility] 03-31-2024 10:21-0500 Body temperature 97 [degF] Sanjana Gillullo [employer] ADMINISTRATOR[employer] Work Phone: [facility] 03-31-2024 10:21-0500 Body weight 107.95 kg Sanjana Garciao [employer] ADMINISTRATOR[employer] Work Phone: [facility] 03-31-2024 10:21-0500 Diastolic blood pressure 68 mm[Hg] Sanjana Gillullo [employer] ADMINISTRATOR[employer] Work Phone: [facility] 03-31-2024 10:21-0500 Heart rate 67 /min Sanjana Jairoullo [employer]IX SYSTEMS ADMINISTRATOR-C Work Phone: [facility] 03-31-2024 10:21-0500 Respiratory rate 16 /min Sanjanajazzy Gillullo [employer]IX SYSTEMS ADMINISTRATOR-C Work Phone: [facility] 03-31-2024 10:21-0500 SaO2% (BldA) [Mass fraction] 93 % Sanjanajazzy Gillullo [employer]IX SYSTEMS ADMINISTRATOR-C Work Phone: [facility] 03-31-2024 10:21-0500 Systolic blood pressure 124 mm[Hg] Sanjana Garciao [employer]IX SYSTEMS ADMINISTRATOR-C Work Phone: [facility] 03-18-2024 13:30-0500 Body temperature 98.2 [degF] Sanjanajazzy Gillullo UNIX SYSTEMS ADMINISTRATOR-C Work Phone: [facility] 03-18-2024 13:30-0500 Body weight 109.76 kg Sanjanajazzy Gillullo [employer]IX SYSTEMS ADMINISTRATOR-C Work Phone: [facility] 03-18-2024 13:30-0500 Diastolic blood pressure 77 mm[Hg] Sanjanajazzy Gillullo [employer]IX SYSTEMS ADMINISTRATOR-C Work Phone: [facility] 03-18-2024 13:30-0500 Heart rate 76 /min Sanjanajazzy Gillgauravo [employer]IX SYSTEMS ADMINISTRATOR-C Work Phone: [facility] 03-18-2024 13:30-0500 Respiratory rate 16 /min Sanjanajazzy Gillullo [employer]IX SYSTEMS ADMINISTRATOR-C Work Phone: [facility] 03-18-2024 13:30-0500 SaO2% (BldA) [Mass fraction] 94 % Sanjana Gillullo [employer]IX SYSTEMS ADMINISTRATOR-C Work Phone: [facility] 03-18-2024 13:30-0500 Systolic blood pressure 138 mm[Hg] Sanjana Gillgauravo UNIX SYSTEMS ADMINISTRATOR-C Work Phone: [facility] 02-25-2024 10:24-0500 Body mass index (BMI) [Ratio] 30.6 kg/m2 Sanjanajazzy Gillullo [employer]IX SYSTEMS ADMINISTRATOR-C Work Phone: [facility] 02-25-2024 10:24-0500 Body temperature 98.3 [degF] Sanjanajazzy Gillullo UNIX SYSTEMS ADMINISTRATOR-C Work Phone: [facility] 02-25-2024 10:24-0500 Body weight 108.12 kg Sanjanajazzy Gillgauravo [employer]IX SYSTEMS ADMINISTRATOR-C Work Phone: [facility] 02-25-2024 10:24-0500 Diastolic blood pressure 84 mm[Hg] Sanjana Hale [employer]IX SYSTEMS ADMINISTRATOR-C Work Phone: [facility] 02-25-2024 10:24-0500 Heart rate 78 /min Sanjana Hale [employer]IX SYSTEMS ADMINISTRATOR-C Work Phone: [facility] 02-25-2024 10:24-0500 SaO2% (BldA) [Mass fraction] 96 % Sanjana Hale [employer]IX SYSTEMS ADMINISTRATOR-C Work Phone: [facility] 02-25-2024 10:24-0500 Systolic blood pressure 150 mm[Hg] Sanjana Hale [employer]IX SYSTEMS ADMINISTRATOR-C Work Phone: [facility] 07-31-2023 09:15-0400 Body height 188 cm Rocio Ruiz MD Work Phone: [facility] 07-31-2023 09:15-0400 Body mass index (BMI) [Ratio] 29.79 kg/m2 Rocio Ruiz MD Work Phone: [facility] 07-31-2023 09:15-0400 Body weight 105.23 kg Rocio Ruiz MD Work Phone: [facility] 07-31-2023 09:15-0400 Diastolic blood pressure 80 mm[Hg] Rocio Ruiz MD Work Phone: [facility] 07-31-2023 09:15-0400 Systolic blood pressure 118 mm[Hg] Rocio Ruiz MD Work Phone: [facility] 06-06-2023 10:56-0400 Body height 187.[address] Ryan Ceja Work Phone: [facility] 06-06-2023 10:56-0400 Body mass index (BMI) [Ratio] 30.4 kg/m2 Dr. Ryan Ceja Work Phone: [facility] 06-06-2023 10:56-0400 Body temperature 98.1 [degF] Dr. Ryan Ceja Work Phone: [facility] 06-06-2023 10:56-0400 Body weight 107.[address] Ryan Ceja Work Phone: [facility] 06-06-2023 10:56-0400 Diastolic blood pressure 80 mm[Hg] Dr. Ryan Ceja Work Phone: [facility] 06-06-2023 10:56-0400 Heart rate 77 /min Dr. Ryan Ceja Work Phone: [facility] 06-06-2023 10:56-0400 Respiratory rate 17 /min Dr. Ryan Ceja Work Phone: [facility] 06-06-2023 10:56-0400 SaO2% (BldA) [Mass fraction] 98 % Dr. Ryan Ceja Work Phone: [facility] 06-06-2023 10:56-0400 Systolic blood pressure 148 mm[Hg] Dr. Ryan Ceja Work Phone: [facility] 05-09-2023 15:00-0400 Body height 187.[address] Ryan Ceja Work Phone: [facility] 05-09-2023 15:00-0400 Body mass index (BMI) [Ratio] 30.8 kg/m2 Dr. Ryan Ceja Work Phone: [facility] 05-09-2023 15:00-0400 Body temperature 98.8 [degF] Dr. Ryan Ceja Work Phone: [facility] 05-09-2023 15:00-0400 Body weight 108.[address] Ryan Ceja Work Phone: [facility] 05-09-2023 15:00-0400 Diastolic blood pressure 62 mm[Hg] Dr. Ryan Ceja Work Phone: [facility] 05-09-2023 15:00-0400 Heart rate 74 /min Dr. Ryan Ceja Work Phone: [facility] 05-09-2023 15:00-0400 Respiratory rate 18 /min Dr. Ryan Ceja Work Phone: [facility] 05-09-2023 15:00-0400 SaO2% (BldA) [Mass fraction] 95 % Dr. Ryan Ceja Work Phone: [facility] 05-09-2023 15:00-0400 Systolic blood pressure 112 mm[Hg] Dr. Ryan Ceja Work Phone: [facility] 03-21-2023 08:44-0500 Body height 187.[address] Ryan Ceja Work Phone: [facility] 03-21-2023 08:44-0500 Body mass index (BMI) [Ratio] 30.4 kg/m2 Dr. Ryan Ceja Work Phone: [facility] 03-21-2023 08:44-0500 Body temperature 97.2 [degF] Dr. Ryan Ceja Work Phone: [facility] 03-21-2023 08:44-0500 Body weight 107.[address] Ryan Ceja Work Phone: [facility] 03-21-2023 08:44-0500 Diastolic blood pressure 60 mm[Hg] Dr. Ryan Ceja Work Phone: [facility] 03-21-2023 08:44-0500 Heart rate 84 /min Dr. Ryan Ceja Work Phone: [facility] 03-21-2023 08:44-0500 Respiratory rate 16 /min Dr. Ryan Ceja Work Phone: [facility] 03-21-2023 08:44-0500 SaO2% (BldA) [Mass fraction] 98 % Dr. Ryan Ceja Work Phone: [facility] 03-21-2023 08:44-0500 Systolic blood pressure 138 mm[Hg] Dr. Ryan Ceja Work Phone: [facility] 03-06-2023 14:40-0500 Diastolic blood pressure 79 mm[Hg] Dr. Ryan Ceja Work Phone: [facility] 03-06-2023 14:40-0500 Systolic blood pressure 128 mm[Hg] Dr. Ryan Ceja Work Phone: [facility] 03-06-2023 14:19-0500 Body temperature 98 [degF] Dr. Ryan Ceja Work Phone: [facility] 03-06-2023 14:19-0500 Body weight 107.[address] Ryan Ceja Work Phone: [facility] 03-06-2023 14:19-0500 Heart rate 94 /min Dr. Ryan Ceja Work Phone: [facility] 03-06-2023 14:19-0500 Respiratory rate 16 /min Dr. Ryan Ceja Work Phone: [facility] 03-06-2023 14:19-0500 SaO2% (BldA) [Mass fraction] 98 % Dr. Ryan Ceja Work Phone: [facility] 02-20-2023 10:31-0500 Body temperature 98.4 [degF] Dr. Ryan Ceja Work Phone: [facility] 02-20-2023 10:31-0500 Body weight 109.[address] Ryan Ceja Work Phone: [facility] 02-20-2023 10:31-0500 Diastolic blood pressure 88 mm[Hg] Dr. Ryan Ceja Work Phone: [facility] 02-20-2023 10:31-0500 Heart rate 83 /min Dr. Ryan Ceja Work Phone: [facility] 02-20-2023 10:31-0500 Respiratory rate 16 /min Dr. Ryan Ceja Work Phone: [facility] 02-20-2023 10:31-0500 SaO2% (BldA) [Mass fraction] 97 % Dr. Ryan Ceja Work Phone: [facility] 02-20-2023 10:31-0500 Systolic blood pressure 144 mm[Hg] Dr. Ryan Ceja Work Phone: [facility] 02-13-2023 16:20-0500 Body temperature 97.8 [degF] Dr. Ryan Ceja Work Phone: [facility] 02-13-2023 16:20-0500 Diastolic blood pressure 68 mm[Hg] Dr. Ryan Ceja Work Phone: [facility] 02-13-2023 16:20-0500 Heart rate 60 /min Dr. Ryan Ceja Work Phone: [facility] 02-13-2023 16:20-0500 Respiratory rate 18 /min Dr. Ryan Ceja Work Phone: [facility] 02-13-2023 16:20-0500 SaO2% (BldA) [Mass fraction] 99 % Dr. Ryan Ceja Work Phone: [facility] 02-13-2023 16:20-0500 Systolic blood pressure 125 mm[Hg] Dr. Ryan Ceja Work Phone: [facility] 02-12-2023 06:38-0500 Body height 187.[address] Ryan Ceja Work Phone: [facility] 02-12-2023 06:38-0500 Body mass index (BMI) [Ratio] 31.1 kg/m2 Dr. Ryan Ceja Work Phone: [facility] 02-12-2023 06:38-0500 Body weight [address] Ryan Ceja Work Phone: [facility] 01-31-2023 14:32-0500 Body height 187.[address] Ryan Ceja Work Phone: [facility] 01-31-2023 14:32-0500 Body mass index (BMI) [Ratio] 30.7 kg/m2 Dr. Ryan Ceja Work Phone: [facility] 01-31-2023 14:32-0500 Body temperature 98.2 [degF] Dr. Ryan Ceja Work Phone: [facility] 01-31-2023 14:32-0500 Body weight 108.[address] Ryan Ceja Work Phone: [facility] 01-31-2023 14:32-0500 Diastolic blood pressure 74 mm[Hg] Dr. Ryan Ceja Work Phone: [facility] 01-31-2023 14:32-0500 Heart rate 73 /min Dr. Ryan Ceja Work Phone: [facility] 01-31-2023 14:32-0500 Respiratory rate 18 /min Dr. Ryan Ceja Work Phone: [facility] 01-31-2023 14:32-0500 SaO2% (BldA) [Mass fraction] 97 % Dr. Ryan Ceja Work Phone: [facility] 01-31-2023 14:32-0500 Systolic blood pressure 123 mm[Hg] Dr. Ryan Ceja Work Phone: [facility] 01-02-2023 10:40-0500 Body height 188 cm Rocio Ruiz MD Work Phone: [facility] 01-02-2023 10:40-0500 Body mass index (BMI) [Ratio] 31.2 kg/m2 Rocio Ruiz MD Work Phone: [facility] 01-02-2023 10:40-0500 Body weight 110.22 kg Rocio Ruiz MD Work Phone: [facility] 01-02-2023 10:40-0500 Diastolic blood pressure 62 mm[Hg] Rocio Ruiz MD Work Phone: [facility] 01-02-2023 10:40-0500 Heart rate 80 /min Rocio Ruiz MD Work Phone: [facility] 01-02-2023 10:40-0500 Systolic blood pressure 122 mm[Hg] Rocio Ruiz MD Work Phone: [facility] 01-02-2023 08:40-0500 Body height 188 cm Ziggy Arauz MD Work Phone: [facility] 01-02-2023 08:40-0500 Body mass index (BMI) [Ratio] 30.17 kg/m2 Ziggy Arauz MD Work Phone: [facility] 01-02-2023 08:40-0500 Body weight 106.59 kg Ziggy Arauz MD Work Phone: [facility] 12-25-2022 19:57-0400 Diastolic blood pressure 74 mm[Hg] Pacheco Ortiz MD Work Phone: [facility] 12-25-2022 19:57-0400 Heart rate 83 /min Pacheco Ortiz MD Work Phone: [facility] 12-25-2022 19:57-0400 Respiratory rate 20 /min Pacheco Ortiz MD Work Phone: [facility] 12-25-2022 19:57-0400 SaO2% (BldA) [Mass fraction] 96 % Pacheco Ortiz MD Work Phone: [facility] 12-25-2022 19:57-0400 Systolic blood pressure 154 mm[Hg] Pacheco Ortiz MD Work Phone: [facility] 12-25-2022 18:53-0400 Body height 188 cm Pacheco Ortiz MD Work Phone: [facility] 12-25-2022 18:53-0400 Body mass index (BMI) [Ratio] 30.94 kg/m2 Pacheco Ortiz MD Work Phone: [facility] 12-25-2022 18:53-0400 Body temperature 98.01 [degF] Pacheco Ortiz MD Work Phone: [facility] 12-25-2022 18:53-0400 Body weight 109.32 kg Pacheco Ortiz MD Work Phone: [facility] 12-25-2022 16:45-0400 Diastolic blood pressure 80 mm[Hg] Ziggy Arauz MD Work Phone: [facility] 12-25-2022 16:45-0400 Heart rate 66 /min Ziggy Arauz MD Work Phone: [facility] 12-25-2022 16:45-0400 Respiratory rate 16 /min Ziggy Arauz MD Work Phone: [facility] 12-25-2022 16:45-0400 SaO2% (BldA) [Mass fraction] 96 % Ziggy Arauz MD Work Phone: [facility] 12-25-2022 16:45-0400 Systolic blood pressure 132 mm[Hg] Ziggy Arauz MD Work Phone: [facility] 12-25-2022 08:28-0400 Body height 188 cm Ziggy Arauz MD Work Phone: [facility] 12-25-2022 08:28-0400 Body mass index (BMI) [Ratio] 30.94 kg/m2 Ziggy Arauz MD Work Phone: [facility] 12-25-2022 08:28-0400 Body temperature 97 [degF] Ziggy Arauz MD Work Phone: [facility] 12-25-2022 08:28-0400 Body weight 109.32 kg Ziggy Arauz MD Work Phone: [facility] 12-22-2022 10:17-0400 Diastolic blood pressure 85 mm[Hg] Pacheco Negron MD Work Phone: [facility] 12-22-2022 10:17-0400 Heart rate 50 /min Pacheco Negron MD Work Phone: [facility] 12-22-2022 10:17-0400 Respiratory rate 16 /min Pacheco Negron MD Work Phone: [facility] 12-22-2022 10:17-0400 SaO2% (BldA) [Mass fraction] 98 % Pacheco Negron MD Work Phone: [facility] 12-22-2022 10:17-0400 Systolic blood pressure 148 mm[Hg] Pacheco Negron MD Work Phone: [facility] 12-22-2022 08:04-0400 Body mass index (BMI) [Ratio] 30.94 kg/m2 Pacheco Negron MD Work Phone: [facility] 12-22-2022 08:04-0400 Body temperature 97.2 [degF] Pacheco Negron MD Work Phone: [facility] 12-22-2022 08:04-0400 Body weight 109.32 kg Pacheco Negron MD Work Phone: [facility] 12-07-2022 15:23-0400 Body temperature 97.59 [degF] Yolanda Voll DO Work Phone: [facility] 12-07-2022 15:23-0400 Diastolic blood pressure 64 mm[Hg] Yolanda Voll DO Work Phone: [facility] 12-07-2022 15:23-0400 Heart rate 62 /min Yolanda Voll DO Work Phone: [facility] 12-07-2022 15:23-0400 Respiratory rate 16 /min Yolanda Voll DO Work Phone: [facility] 12-07-2022 15:23-0400 SaO2% (BldA) [Mass fraction] 95 % Yolanda Voll DO Work Phone: [facility] 12-07-2022 15:23-0400 Systolic blood pressure 110 mm[Hg] Yolanda Voll DO Work Phone: [facility] 12-07-2022 09:19-0400 Body height 188 cm Yolanda Voll DO Work Phone: [facility] 12-07-2022 09:19-0400 Body mass index (BMI) [Ratio] 30.81 kg/m2 Yolanda Patel DO Work Phone: [facility] 12-07-2022 09:19-0400 Body weight 108.86 kg Yolanda Patel DO Work Phone: [facility] 11-14-2022 10:54-0400 Body mass index (BMI) [Ratio] 31.3 kg/m2 Cheryl Basilio MD Work Phone: [facility] 11-14-2022 10:54-0400 Body weight 110.59 kg Cheryl Basilio MD Work Phone: [facility] 11-14-2022 10:54-0400 Diastolic blood pressure 84 mm[Hg] Cheryl Basilio MD Work Phone: [facility] 11-14-2022 10:54-0400 Heart rate 91 /min Cheryl Basilio MD Work Phone: [facility] 11-14-2022 10:54-0400 SaO2% (BldA) [Mass fraction] 94 % Cheryl Basilio MD Work Phone: [facility] 11-14-2022 10:54-0400 Systolic blood pressure 137 mm[Hg] Cheryl Basilio MD Work Phone: [facility] 10-16-2022 07:25-0400 Body temperature 98.2 [degF] Natacha Pearcey DO Work Phone: [facility] 10-16-2022 07:25-0400 Diastolic blood pressure 92 mm[Hg] Natacha Skiffey DO Work Phone: [facility] 10-16-2022 07:25-0400 Heart rate 68 /min Natacha Skiffey DO Work Phone: [facility] 10-16-2022 07:25-0400 Respiratory rate 17 /min Natacha Waddellffey DO Work Phone: [facility] 10-16-2022 07:25-0400 SaO2% (BldA) [Mass fraction] 97 % Natacha Frankel DO Work Phone: [facility] 10-16-2022 07:25-0400 Systolic blood pressure 148 mm[Hg] Natacha Frankel DO Work Phone: [facility] 10-12-2022 16:15-0400 Diastolic blood pressure 72 mm[Hg] Pacheco Negron MD Work Phone: [facility] 10-12-2022 16:15-0400 Respiratory rate 16 /min Pacheco Negron MD Work Phone: [facility] 10-12-2022 16:15-0400 SaO2% (BldA) [Mass fraction] 98 % Pacheco Negron MD Work Phone: [facility] 10-12-2022 16:15-0400 Systolic blood pressure 138 mm[Hg] Pacheco Negron MD Work Phone: [facility] 10-12-2022 13:36-0400 Body mass index (BMI) [Ratio] 30.17 kg/m2 Pacheco Negron MD Work Phone: [facility] 10-12-2022 13:36-0400 Body temperature 97.81 [degF] Pacheco Negron MD Work Phone: [facility] 10-12-2022 13:36-0400 Body weight 106.59 kg Pacheco Negron MD Work Phone: [facility] 10-12-2022 13:36-0400 Heart rate 91 /min Pacheco Negron MD Work Phone: [facility] 10-11-2022 08:27-0400 Body height 188 cm Cheryl Basilio MD Work Phone: [facility] 10-11-2022 08:27-0400 Body mass index (BMI) [Ratio] 29.89 kg/m2 Cheryl Basilio MD Work Phone: [facility] 10-11-2022 08:27-0400 Body weight 105.6 kg Cheryl Basilio MD Work Phone: [facility] 10-11-2022 08:27-0400 Diastolic blood pressure 68 mm[Hg] Cheryl Basilio MD Work Phone: [facility] 10-11-2022 08:27-0400 Heart rate 76 /min Cheryl Basilio MD Work Phone: [facility] 10-11-2022 08:27-0400 SaO2% (BldA) [Mass fraction] 93 % Cheryl Basilio MD Work Phone: [facility] 10-11-2022 08:27-0400 Systolic blood pressure 122 mm[Hg] Cheryl Basilio MD Work Phone: [facility] 10-10-2022 12:42-0400 Body height 188 cm Donna Roberts DO Work Phone: [facility] 10-10-2022 12:42-0400 Body mass index (BMI) [Ratio] 30.15 kg/m2 Donna Roberts DO Work Phone: [facility] 10-10-2022 12:42-0400 Body weight 106.5 kg Donna Roberts DO Work Phone: [facility] 10-10-2022 12:42-0400 Diastolic blood pressure 74 mm[Hg] Donna Roberts DO Work Phone: [facility] 10-10-2022 12:42-0400 Heart rate 78 /min Alisusan Carreoniuk DO Work Phone: [facility] 10-10-2022 12:42-0400 Respiratory rate 18 /min Alisusan Carreoniuk DO Work Phone: [facility] 10-10-2022 12:42-0400 SaO2% (BldA) [Mass fraction] 93 % Donna Roberts DO Work Phone: [facility] Comment on above: Room air at rest 10-10-2022 12:42-0400 Systolic blood pressure 108 mm[Hg] Donna Roberts DO Work Phone: [facility] 09-13-2022 11:46-0400 Body mass index (BMI) [Ratio] 30.53 kg/m2 Chana Bridenthal 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 Work Phone: [facility] 09-13-2022 11:46-0400 Body temperature 98.2 [degF] Chana Bridenthal 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 Work Phone: [facility] 09-13-2022 11:46-0400 Body weight 107.86 kg Chana Bridenthal [employer]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 Work Phone: [facility] 09-13-2022 11:46-0400 Diastolic blood pressure 80 mm[Hg] Chana Bridenthal [employer]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 Work Phone: [facility] 09-13-2022 11:46-0400 Heart rate 68 /min Chana Bridenthal [employer]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 Work Phone: [facility] 09-13-2022 11:46-0400 Respiratory rate 20 /min Chana Bridenthal 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 Work Phone: [facility] 09-13-2022 11:46-0400 Systolic blood pressure 138 mm[Hg] Chana Bridenthal [employer]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 Work Phone: [facility] 08-17-2022 08:17-0400 Body height 188 cm Tayler Rivas 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 Work Phone: [facility] 08-17-2022 08:17-0400 Body mass index (BMI) [Ratio] 30.3 kg/m2 Tayler Rivas 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 Work Phone: [facility] 08-17-2022 08:17-0400 Body weight 107.05 kg Tayler Rivas [employer]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 Work Phone: [facility] 08-17-2022 08:17-0400 Diastolic blood pressure 76 mm[Hg] Tayler Rivas CY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 Work Phone: [facility] 08-17-2022 08:17-0400 Heart rate 59 /min Tayler Rivas [employer]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 Work Phone: [facility] 08-17-2022 08:17-0400 SaO2% (BldA) [Mass fraction] 98 % Tayler Rivas [employer]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 Work Phone: [facility] 08-17-2022 08:17-0400 Systolic blood pressure 122 mm[Hg] Tayler Rivas [employer]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 Work Phone: [facility] 06-19-2022 13:48-0400 Body height 188 cm Leanne Perales MD Work Phone: [facility] 06-19-2022 13:48-0400 Body mass index (BMI) [Ratio] 30.66 kg/m2 Leanne Perales MD Work Phone: [facility] 06-19-2022 13:48-0400 Body weight 108.32 kg Leanne Perales MD Work Phone: [facility] 06-19-2022 13:48-0400 Diastolic blood pressure 82 mm[Hg] Leanne Perales MD Work Phone: [facility] 06-19-2022 13:48-0400 Heart rate 75 /min Leanne Perales MD Work Phone: [facility] 06-19-2022 13:48-0400 Systolic blood pressure 139 mm[Hg] Leanne Perales MD Work Phone: [facility] 05-17-2022 11:46-0400 Diastolic blood pressure 67 mm[Hg] Leanne Perales MD Work Phone: [facility] 05-17-2022 11:46-0400 Heart rate 67 /min Leanne Perales MD Work Phone: [facility] 05-17-2022 11:46-0400 Respiratory rate 20 /min Leanne Perales MD Work Phone: [facility] 05-17-2022 11:46-0400 Systolic blood pressure 122 mm[Hg] Leanne Perales MD Work Phone: [facility] 03-06-2022 14:46-0500 Body height 188 cm Leanne Perales MD Work Phone: [facility] 03-06-2022 14:46-0500 Body mass index (BMI) [Ratio] 30.4 kg/m2 Leanne Perales MD Work Phone: [facility] 03-06-2022 14:46-0500 Body weight 107.41 kg Leanne Perales MD Work Phone: [facility] 03-06-2022 14:46-0500 Diastolic blood pressure 72 mm[Hg] Leanne Perales MD Work Phone: [facility] 03-06-2022 14:46-0500 Heart rate 74 /min Leanne Perales MD Work Phone: [facility] 03-06-2022 14:46-0500 Systolic blood pressure 120 mm[Hg] Leanne Perales MD Work Phone: [facility] 02-27-2022 14:16-0500 Body temperature 97.7 [degF] Chana Bridenthal [employer]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 Work Phone: [facility] 02-27-2022 14:16-0500 Diastolic blood pressure 80 mm[Hg] Chana Bridenthal CY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 Work Phone: [facility] 02-27-2022 14:16-0500 Systolic blood pressure 138 mm[Hg] Chana Bridenthal CY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 Work Phone: [facility] 02-27-2022 13:35-0500 Body mass index (BMI) [Ratio] 30.17 kg/m2 Chana Bridenthal CY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 Work Phone: [facility] 02-27-2022 13:35-0500 Body weight 106.59 kg Chana Bridenthal CY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 Work Phone: [facility] 02-27-2022 13:35-0500 Heart rate 69 /min Chana Brown CY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 Work Phone: [facility] 12-05-2021 20:43-0400 Body temperature 98.1 [degF] Barry Leon MD Work Phone: [facility] 12-05-2021 20:43-0400 Diastolic blood pressure 85 mm[Hg] Barry Leon MD Work Phone: [facility] 12-05-2021 20:43-0400 Heart rate 68 /min Barry Leon MD Work Phone: [facility] 12-05-2021 20:43-0400 Respiratory rate 18 /min Barry Leon MD Work Phone: [facility] 12-05-2021 20:43-0400 SaO2% (BldA) [Mass fraction] 94 % Barry Leon MD Work Phone: [facility] 12-05-2021 20:43-0400 Systolic blood pressure 145 mm[Hg] Barry Leon MD Work Phone: [facility] 12-01-2021 10:17-0400 Body height 188 cm Barry Loen MD Work Phone: [facility] 12-01-2021 10:17-0400 Body mass index (BMI) [Ratio] 30.3 kg/m2 Barry Leon MD Work Phone: [facility] 12-01-2021 10:17-0400 Body weight 107.05 kg Barry Leon MD Work Phone: [facility] 11-27-2021 23:28-0400 Diastolic blood pressure 78 mm[Hg] Tc Spence MD Work Phone: [facility] 11-27-2021 23:28-0400 Heart rate 83 /min Tc Spence MD Work Phone: [facility] 11-27-2021 23:28-0400 Respiratory rate 16 /min Tc Spence MD Work Phone: [facility] 11-27-2021 23:28-0400 SaO2% (BldA) [Mass fraction] 97 % Tc Spence MD Work Phone: [facility] 11-27-2021 23:28-0400 Systolic blood pressure 127 mm[Hg] Tc Spence MD Work Phone: [facility] 11-27-2021 20:34-0400 Body height 188 cm Tc Spence MD Work Phone: [facility] 11-27-2021 20:34-0400 Body mass index (BMI) [Ratio] 29.53 kg/m2 Tc Spence MD Work Phone: [facility] 11-27-2021 20:34-0400 Body temperature 98.2 [degF] Tc Spence MD Work Phone: [facility] 11-27-2021 20:34-0400 Body weight 104.33 kg Tc Spence MD Work Phone: [facility] Encounters Encounter Date Encounter Type Care Provider Facility Start: 08-11-2024 End: 08-11-[address] Justice Issa DO -[facility] Work Phone: Start: 08-11-2024 End: 08-11-2024 ambulatory Dolly SHAFFER Work Phone: [facility] Work Phone: Start: 08-02-2024 End: 08-02-2024 Emergency department patient visit Dolly SHAFFER Work Phone: -Emergency Department Work Phone: Start: 07-17-2024 End: 07-17-[address] Franky Brewer MD -[facility] Work Phone: Start: 07-17-2024 End: 07-17-2024 ambulatory Justice Bailey Facility:[facility] Start: 07-01-2024 Non-patient / Non-visit Estefany Gonzalez MA -[facility] Work Phone: Start: 07-01-2024 ambulatory Justice Bailey Facilit y:[facility] Start: 05-28-2024 End: 05-28-2024 Patient encounter procedure Stanislaw SHAFFER -[facility] Work Phone: Start: 05-28-2024 End: 05-28-2024 ambulatory Sanjana Hale UNIX SYSTEMS ADMINISTRATOR-C Work Phone: [facility] Work Phone: Start: 05-28-2024 End: 05-28-2024 ambulatory Justice Bailey Facility:[facility] Start: 05-14-2024 Non-patient / Non-visit Yolanda SHAFFER -[facility] Start: 05-14-2024 ambulatory Yolanda SHAFFER Facilit y:[facility] Start: 04-20-2024 End: 04-20-2024 ambulatory SANJANA HALE CYLINDER INSPECTOR AND TESTER-FARM EQUIPMENT SERVICE TECHNICIAN Facility:[facility] Start: 04-20-2024 End: 04-20-2024 Patient encounter procedure BASIM RAMSEY MD [facility] Start: 04-13-2024 ambulatory Dolly Clarke Facility:[facility] Start: 04-13-2024 Non-patient / Non-visit Dr. Ryan adams MD -[facility] Start: 04-13-2024 End: 04-13-2024 Patient encounter procedure Dolly SHAFFER -[facility] Work Phone: Start: 04-13-2024 End: 04-13-2024 ambulatory Dolly Clarke Facility:[facility] Start: 03-31-2024 End: 03-31-[address] Justice Issa DO -[facility] Work Phone: Start: 03-31-2024 End: 03-31-2024 ambulatory Justice Bailey Facility:[facility] Start: 03-18-2024 End: 03-18-2024 Patient encounter procedure Dolly SHAFFER -[facility] Work Phone: Start: 03-18-2024 End: 03-18-2024 ambulatory Dolly Clarke Facility:[facility] Start: 02-25-2024 End: 02-25-2024 Patient encounter procedure David SHAFFER -[facility] Work Phone: Start: 02-25-2024 End: 02-25-2024 ambulatory David SHAFFER Facility:[facility] Start: 01-03-2024 End: 01-03-2024 ambulatory BASIM RAMSEY MD Facility:[facility] Start: 01-03-2024 End: 01-03-2024 Patient encounter procedure BASIM RAMSEY MD [facility] Start: 12-23-2023 End: 12-23-2023 ambulatory Sanjana Ferullo Facility:[facility] Start: 10-15-2023 End: 10-15-2023 ambulatory Sanjana Ferullo Facility:[facility] Start: 10-10-2023 End: 10-10-2023 ambulatory Sanjana Ferullo Facility:[facility] Start: 09-20-2023 End: 09-20-2023 ambulatory Sanjana Ferullo Facility:[facility] Start: 09-16-2023 End: 09-16-2023 Subsequent hospital visit by physician Rocio Ruiz MD Work Phone: [facility] Comment on above: Pituitary adenoma (H CC) Start: 09-16-2023 End: 09-16-2023 ambulatory ROCIO RUIZ [facility] Start: 08-01-2023 Telephone encounter Rocio Ruiz MD Work Phone: [facility]ology Comment on above: Results Start: 07-31-2023 End: 07-31-2023 Office outpatient visit 25 minutes Rocio Ruiz MD Work Phone: [facility] Comment on above: Pituitary adenoma (H CC) (Primary Dx); Hypercalcemia; 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; Hypogonadotropic hypogonadism (HCC) Start: 07-31-2023 End: 07-31-2023 ambulatory SILVESTRE SEXTON [facility] Start: 06-21-2023 End: 06-21-2023 ambulatory UNIX SYSTEMS ADMINISTRATOR-C Sanjanajazzy Garciao Work Phone: [facility] Work Phone: Start: 06-21-2023 End: 06-21-2023 Patient encounter procedure UNIX SYSTEMS ADMINISTRATOR-C Sanjana Hale Work Phone: [facility]-Cat Scan, [facility] Work Phone: Start: 06-19-2023 Telephone encounter Donna Roberts DO Work Phone: [facility] Pulmonary Start: 06-18-2023 End: 06-18-2023 ambulatory UNIX SYSTEMS ADMINISTRATOR-C Sanjana Hale Work Phone: [facility] Work Phone: Start: 06-18-2023 End: 06-18-2023 Patient encounter procedure UNIX SYSTEMS ADMINISTRATOR-C Sanjana Hale Work Phone: [facility]-Ultrasound, [facility] Work Phone: Start: 06-10-2023 End: 06-10-2023 ambulatory UNIX SYSTEMS ADMINISTRATOR-C Sanjana Hale Work Phone: [facility] Work Phone: Start: 06-10-2023 End: 06-10-[address] Ryan Ceja Work Phone: [facility]-Laboratory Work Phone: Start: 06-06-2023 End: 06-06-[address] Ryan Ceja Work Phone: [facility] Work Phone: Start: 06-06-2023 End: 06-06-[address] Ryan Ceja Work Phone: [facility] Internal Medicine Work Phone: Start: 05-28-2023 End: 05-28-[address] Ryan Ceja Work Phone: [facility] Work Phone: Start: 05-28-2023 End: 05-28-[address] Ryan Ceja Work Phone: [facility] Internal Medicine Work Phone: Start: 05-09-2023 End: 05-09-[address] Ryan Ceja Work Phone: [facility] Work Phone: Start: 05-09-2023 End: 05-09-[address] [facility] Work [facility] Start: 05-09-2023 End: 05-09-[address] Ryan Ceja Work Phone: [facility] Internal Medicine Work Phone: Start: 04-21-2023 Refill Isa Silvino er UNIX SYSTEMS ADMINISTRATOR Work Phone: [facility] Start: 04-01-2023 Refill Isa Silvino er UNIX SYSTEMS ADMINISTRATOR Work Phone: [facility] Start: 03-21-2023 End: 03-21-[address] Ryan Ceja Work Phone: [facility] Work Phone: Start: 03-21-2023 End: 03-21-[address] Ryan Ceja Work Phone: [facility]-Laboratory, [facility] Start: 03-21-2023 End: 03-21-[address] Ryan Ceja Work Phone: [facility] Internal Medicine Work Phone: Start: 03-06-2023 End: 03-06-[address] Ryan Ceja Work Phone: [facility] Vascular Surgery Work Phone: Start: 02-20-2023 End: 02-20-[address] Ryan Ceja Work Phone: [facility] Vascular Surgery Work Phone: Start: 02-13-2023 Non-patient / Non-visit Dr. Kelvin Ceja Work Phone: [facility] Start: 02-12-2023 Non-patient / Non-visit Dr. Kelvin Ceja Work Phone: [facility] Start: 02-12-2023 End: 02-13-2023 Evaluation and management of inpatient Dr. Ryan Ceja Work Phone: [facility]-Progressive Care Unit Work Phone: Start: 02-12-2023 End: 02-13-[address] Ryan Ceja Work Phone: [facility] Work Phone: Start: 02-07-2023 End: 02-07-2023 Non-patient / Non-visit Dr. Ryan Ceja Work Phone: [facility] Work Phone: Start: 02-07-2023 End: 02-07-[address] Ryan Ceja Work Phone: [facility] Work Phone: Start: 02-07-2023 End: 02-07-[address] Ryan Ceja Work Phone: [facility] Work Phone: Start: 02-05-2023 Non-patient / Non-visit Dr. Kelvin Ceja Work Phone: [facility] Start: 02-05-2023 End: 02-05-[address] Ryan Ceja Work Phone: [facility] Work Phone: Start: 02-05-2023 End: 02-05-[address] Ryan Ceja Work Phone: [facility]-Cardiovascu lar Services Work Phone: Start: 01-31-2023 End: 01-31-[address] Ryan Ceja Work Phone: [facility] Vascular Surgery Work Phone: Start: 01-30-2023 Refill Cheryl centeno MD Work Phone: [facility] Medicine Start: 01-25-2023 Telephone encounter Rocio Ruiz MD Work Phone: [facility] End[facility]ology Comment on above: To Dr Ruiz Start: 01-04-2023 Telephone encounter Rocio Ruiz MD Work Phone: [facility] Comment on above: Medication Problem Start: 01-03-2023 End: 01-03-2023 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; Hypercalcemia Start: 01-02-2023 End: 01-02-2023 [facility] Start: 01-02-2023 End: 01-02-2023 Office outpatient visit 15 minutes Ziggy Arauz MD Work Phone: [facility] Vascular Surgery Comment on above: Chronic deep vein th rombosis (DVT) of iliofemoral vein (HCC) (Primary Dx) Start: 01-02-2023 End: 01-02-2023 [facility] Start: 12-25-2022 End: 12-25-2022 Emergency department patient visit Pacheco Ortiz MD Work Phone: [facility] ED Comment on above: Bleeding (Primary Dx ) Start: 12-25-2022 End: 12-25-2022 ambulatory [facility] Start: 12-25-2022 End: 12-25-2022 Subsequent hospital visit by physician Ziggy Arauz MD Work Phone: [facility] Comment on above: Sebaceous cyst of le ft eyelid (Primary Dx) Start: 12-22-2022 ambulatory [facility] Start: 12-22-2022 Patient encounter procedure [facility] Clinical Communication Start: 12-22-2022 End: 12-22-2022 Emergency department patient visit Pacheco Negron MD Work Phone: [facility] ED Comment on above: Acute right flank pa in (Primary Dx) Start: 12-21-2022 End: 12-21-2022 ambulatory [facility] Start: 12-21-2022 End: 12-21-2022 Subsequent hospital visit by physician Cheryl Basilio MD Work Phone: [facility] X-ray Imaging Comment on above: Right flank pain Start: 12-21-2022 End: 12-21-2022 ambulatory [facility] Start: 12-17-2022 Telephone encounter Dat [facility] Clinical Communication Comment on above: Advice Only Start: 12-17-2022 End: 12-17-2022 ambulatory [facility] Start: 12-13-2022 End: 12-13-2022 ambulatory [facility] Start: 12-13-2022 End: 12-13-2022 Encounter for other preprocedural examination ZIGGY [facility] Start: 12-12-2022 ambulatory Aure Delgado CY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 Work Phone: [facility] Start: 12-11-2022 End: 12-11-2022 Subsequent hospital visit by physician Ziggy Arauz MD Work Phone: [facility] Vascular Lab Comment on above: Arrived Start: 12-11-2022 End: 12-11-2022 ambulatory CHERYL BASILIO [facility] Start: 12-10-2022 End: 12-10-2022 ambulatory ZIGGY ARAUZ [facility] Start: 12-07-2022 End: 12-07-2022 Emergency department patient visit Yoalnda Patel Work Phone: [facility] EM[facility]Y [facility]PT Comment on above: Deep vein thrombosis (DVT) of proximal vein of left lower extremity, unspecified chronicity (HCC) (Primary Dx) Start: 12-03-2022 Orders Only Cheryl centeno MD Work Phone: [facility] Internal Medicine Comment on above: Acute deep vein thro mbosis (DVT) of left lower extremity, unspecified vein (HCC) (Primary Dx) Start: 11-15-2022 ambulatory Dat Talbot RN [facility] Clinical Communication Start: 11-15-2022 Patient encounter procedure Dat Talbot RN [facility] Clinical Communication Start: 11-15-2022 Telephone encounter Farzana Samaniego RN [facility] Clinical Communication Comment on above: Results (/) Start: 11-14-2022 End: 11-14-2022 Subsequent hospital visit by physician Cheryl Basilio MD Work Phone: [facility] Vascular Lab Comment on above: Acute deep vein thro mbosis (DVT) of left lower extremity, unspecified vein (HCC) Start: 11-14-2022 ambulatory Natacha Barry RN [facility] Clinical Communication Start: 11-14-2022 Patient encounter procedure Natacha francisco RN [facility] Clinical Communication Start: 11-14-2022 End: 11-14-2022 Office outpatient visit 15 minutes Cheryl Basilio MD Work Phone: [facility] Internal Medicine Comment on above: Acute deep vein thro mbosis (DVT) of left lower extremity, unspecified vein (HCC) (Primary Dx) Start: 11-13-2022 ambulatory Khalida Currie RN [facility] C linical Communication Start: 11-13-2022 Patient encounter procedure Khalida herring RN [facility] Clinical Communication Start: 10-31-2022 Telephone encounter Cheryl Basilio MD Work Phone: [facility] Internal Medicine Comment on above: Med Refill Start: 10-15-2022 Orders Only Cheryl centeno MD Work Phone: [facility] Internal Medicine Comment on above: ER Follow-up Start: 10-12-2022 End: 10-16-2022 Emergency department patient visit Natacha Frankel DO Work Phone: [facility] Comment on above: Acute deep vein thro mbosis (DVT) of left lower extremity, unspecified vein (HCC) (Primary Dx); Ambulatory dysfunction Start: 10-12-2022 End: 10-12-2022 Subsequent hospital visit by physician [facility] Us Exam Room 2 [facility] Comment on above: Arrived Start: 10-12-2022 End: 10-12-2022 Emergency department patient visit Pacheco Negron MD Work Phone: [facility] ED Comment on above: Leg swelling (Primar y Dx); Acute deep vein thrombosis (DVT) of left lower extremity, unspecified vein (HCC) Start: 10-11-2022 End: 10-11-2022 Office outpatient new 30 minutes Cheryl Basilio MD Work Phone: [facility] Comment on above: Recurrent UTI (Prima ry Dx); Benign prostatic hyperplasia without lower urinary tract symptoms Start: 10-10-2022 End: 10-10-2022 Office outpatient new 45 minutes Donna Roberts DO Work Phone: [facility] Pulmonary Comment on above: Pleural effusion (Pr imary Dx); History of tobacco abuse; Centrilobular emphysema (HCC) Start: 10-10-2022 End: 10-10-2022 Subsequent hospital visit by physician Won Smith CY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 Work Phone: [facility] Comment on above: Complex renal cyst Start: 09-27-2022 ambulatory NONE PHYSICIAN Facility :R Start: 09-18-2022 End: 09-18-2022 Subsequent hospital visit by physician Leanne Perales MD Work Phone: [facility] CT Comment on above: No Show Start: 09-16-2022 Telephone encounter Chana Solis ze CY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 Work Phone: [facility] Comment on above: Results Start: 09-13-2022 End: 09-13-2022 Office outpatient visit 15 minutes Chana Escalonabrennon CY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 Work Phone: [facility] Comment on above: Urinary tract infect ion symptoms (Primary Dx) Start: 08-22-2022 Refill Leanne Perales MD Work Phone: [facility] Start: 08-20-2022 Orders Only Tayler Rivas CY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 Work Phone: [facility] Start: 08-17-2022 End: 08-17-2022 Office outpatient visit 15 minutes Tayler Rivas CY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 Work Phone: [facility] Comment on above: Recurrent UTI (Prima ry Dx); Dysuria; Urinary frequency; Urinary urgency; Chronic right-sided low back pain without sciatica; Leukocytes in urine; Hematuria, unspecified type Start: 07-04-2022 Refill Leanne Perales MD Work Phone: [facility] Start: 06-19-2022 End: 06-19-2022 Office outpatient visit 10 minutes Leanne Perales MD Work Phone: [facility] Comment on above: 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) Start: 06-19-2022 End: 06-19-2022 Office outpatient visit 15 minutes Leanne Perales MD Work Phone: [facility] Comment on above: 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) Start: 05-17-2022 End: 05-17-2022 Office outpatient visit 15 minutes Leanne Perales MD Work Phone: [facility] Medicine Comment on above: Right flank pain (Pr imary Dx) Start: 03-22-2022 Telephone encounter Leanne Chu MD Work Phone: [facility] Comment on above: Auth for CT Start: 03-13-2022 Refill Leanne Perales MD Work Phone: [facility] Start: 03-06-2022 End: 03-06-2022 Office outpatient visit 25 minutes Leanne Peralse MD Work Phone: [facility] Comment on above: Acute right-sided lo w back pain without sciatica (Primary Dx); Right flank pain Start: 02-27-2022 End: 02-27-2022 Office outpatient visit 15 minutes Chana Bridenthal CY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 Work Phone: [facility] Comment on above: Acute cystitis witho ut hematuria (Primary Dx); Flank pain; Essential hypertension, benign Start: 02-27-2022 End: 02-27-2022 Office outpatient visit 25 minutes Chana Bridenthal CY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 Work Phone: [facility] Comment on above: Acute cystitis witho ut hematuria (Primary Dx); Flank pain; Essential hypertension, benign Start: 12-15-2021 Transcribe Orders Won kramer CY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 Work Phone: [facility] Clinical Communication Comment on above: Complex renal cyst ( Primary Dx) Start: 12-07-2021 ambulatory Leanne Perales [facility] Start: 12-01-2021 End: 12-06-2021 Evaluation and management of inpatient [facility] Start: 12-01-2021 End: 12-06-2021 Evaluation and management of inpatient Barry Leon MD Work Phone: [facility] MED SURG Comment on above: Flank pain (Primary Dx); Acute right flank pain; Chills Start: 11-27-2021 End: 11-28-2021 Emergency department patient visit UNKNOWN PROVIDER [facility] Start: 11-27-2021 End: 11-28-2021 Emergency department patient visit Tc Spence MD Work Phone: [facility] ED Comment on above: Flank pain (Primary Dx) Start: 10-18-2021 [facility] Start: 10-18-2021 End: 10-18-2021 Subsequent hospital visit by physician Rocio Ruiz MD Work Phone: [facility] MRI Comment on above: Macroprolactinoma (H CC) Start: 04-12-2021 [facility] Start: 12-26-2018 End: 12-26-2018 Subsequent hospital visit by physician Hema Gomez Work Phone: [facility] Laboratory Comment on above: Primary hyperparathy roidism (HCC); Prolactin secreting pituitary adenoma (HCC); 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 Procedures Date Procedure Procedure Detail Performing Clinician Start: 08-02-2024 Estimated creatinine clearance Dolly SHAFFER Work Phone: Start: 08-02-2024 Urnls dip stick/tabl et reagent auto microscopy Dolly SHAFFER Work Phone: Start: 08-02-2024 CT of abdomen and pe lvis without contrast Dolly SHAFFER Work Phone: Start: 05-28-2024 Urine culture Dolly SHAFFER Work Phone: Start: 07-31-2023 Thyrotropin [Units/v olume] in Serum or Plasma Rocio Ruiz MD Work Phone: Start: 06-21-2023 Computed tomography of abdomen and pelvis with contrast MARLENE-C Sanjana Hale Work Phone: Start: 06-18-2023 US urinary tract UNIX SYSTEMS ADMINISTRATOR-C E tamir Garciachandler Work Phone: Start: 06-06-[address] [...] GUIDANCE OR USE O NLY - NON-RESULTABLE Ziggy Arauz MD Work Phone: Start: 12-22-2022 Urinalysis [...] dip stick/tabl et rgnt non-auto w/o micrscp Leanne Perales MD Work Phone: Start: 12-13-2022 Antibody screen CHERYL BASILIO Comment on above: Performed By: #### L [id number] #### Rn Plasma Center: LENORE ESCOBAR ([id number]) [facility] ([facility]) [address] [place] [address] Start: 12-11-2022 Dup-scan aorta ivc i liac vascl/bpgs complete Ziggy Arauz MD Work Phone: Start: 11-14-2022 Dup-scan xtr veins complete bilateral study Cheryl Basilio MD Work Phone: Start: 10-16-2022 Comprehensive metabo lic panel Bhaskar Reyes MD Work Phone: Start: 10-15-2022 Ct head/brain w/o co ntrast material Bhaskar Reyes MD Work Phone: Start: 10-15-2022 Glucose quantitative blood xcpt reagent strip Bhaskar Reyes MD Work Phone: Start: 10-15-2022 Dup-scan xtr [...] dip stick/tabl et rgnt non-auto w/o micrscp Chana Bridenthal CY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 Work Phone: Start: 08-17-2022 Urnls dip stick/tabl et rgnt non-auto w/o micrscp Tayler Rivas CY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 Work Phone: Start: 08-17-2022 Culture bacterial quanttative colony count urine Tayler Rivas CY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 Work Phone: Start: 05-17-2022 Urnls dip stick/tabl et rgnt non-auto w/o micrscp Leanne Perales MD Work Phone: Start: 03-06-2022 Urnls dip stick/tabl et rgnt non-auto w/o micrscp Leanne Perales MD Work Phone: Start: 02-25-2022 Deep venous thrombos is of lower extremity (disorder) BASIM RAMSEY MD Start: 02-07-2022 Lipid 1996 panel - S suhail or Plasma Leanne Perales MD Work Phone: Start: 02-06-2022 Adult depression scr eening assessment Leanne Perales MD Work Phone: Start: 12-06-2021 BASIC METABOLIC PANE L W/ REFLEX TO MG FOR LOW K Kiara Kapoor CY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 Work Phone: Start: 12-06-2021 Blood count complete auto&auto difrntl wbc Kiara Kapoor CY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 Work Phone: Start: 12-05-2021 BASIC METABOLIC PANE L W/ REFLEX TO MG FOR LOW K Kiara Kapoor CY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 Work Phone: Start: 12-05-2021 Blood count complete auto&auto difrntl wbc Kiara Kapoor CY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 Work Phone: Start: 12-05-2021 Manual Differential panel - Blood Kiara Kapoor CY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 Work Phone: Start: 12-04-2021 Urnls dip stick/tabl et rgnt auto w/o microscopy Kiara Kapoor CY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 Work Phone: Start: 12-04-2021 Us retroperitoneal r eal time w/image limited Kiara Kapoor CY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 Work Phone: Start: 12-04-2021 BASIC METABOLIC PANE [...] Thyrotropin [Units/v olume] in Serum or Plasma Leanne Perales MD Work Phone: Start: 12-01-2021 Echo [...] Phone: Start: 12-01-2021 CULTURE, BLOOD 1 Lenore SHAFFER Work Phone: Start: 12-01-2021 Basic metabolic pane l calcium total Lenore SHAFFER Work Phone: Start: 12-01-2021 Hepatic function panel Lenore SHAFFER Work Phone: Start: 12-01-2021 LACTATE, SEPSIS Lenore SHAFFER Work Phone: Start: 12-01-2021 End: 12-01-2021 Culture bacterial quanttative colony count urine Lenore SHAFFER Work Phone: Start: 12-01-2021 Urnls dip stick/tabl et rgnt auto w/o microscopy Lenore Hernandez Geoff SHAFFER Work Phone: Start: 11-27-2021 Ct abdomen & pelvis w/o contrast material Tc Spence MD Work Phone: Start: 11-27-2021 Urnls dip stick/tabl et rgnt auto w/o microscopy Tc Spence MD Work Phone: Start: 11-27-2021 Basic metabolic pane l calcium total Tc Spence MD Work Phone: Start: 02-01-2020 Colonoscopy Rocio Ruiz MD Work Phone: Start: 12-26-2018 POCT CALCIUM IONIZED mad O Vito-Alireza Work Phone: Start: 12-26-2018 25 hydroxy includes fractions if performed Ahmillyd O Vito-Alireza Work Phone: Start: 12-26-2018 Assay of free thyroxine millyd O Al-Alireza Work Phone: Start: 12-26-2018 Assay of parathormone A ad O Al-Shoha Work Phone: Start: 12-26-2018 Assay of prolactin ma d O Al-Alireza Work Phone: Start: 12-26-2018 Assay of thyroid stimulating hormone tsh Ahmad O Al-Shoha Work Phone: Start: 12-26-2018 Comprehensive metabo lic panel Ahmad O Al-Shoha Work Phone: Start: 12-26-2018 Assay of urine sodium A hmad O Al-Shoha Work Phone: Start: 12-26-2018 Creatinine other source Ahmad O Al-Shoha Work Phone: Start: 02-25-2013 Cholecystectomy BASIM RAMSEY MD Plan of Treatment Date Care Activity Detail Author Start: 01-31-2030 Screening for malignant neoplasm of colon [facility] Start: 02-07-2027 Lipid panel Lipid Panel [facility] Start: 08-20-2026 DTaP/Tdap/Td vaccine (2 - Td or Tdap) DTaP/Tdap/Td vaccine (2 - Td or Tdap) [facility] Start: 08-20-2026 DTaP/Tdap/Td vaccine (2 - Td) DTaP/Tdap/Td vaccine (2 - Td) [place] Start: 08-20-2026 DTaP/Tdap/Td Vaccines (2 - Td or Tdap) DTaP/Tdap/Td Vaccines (2 - Td or Tdap) [facility] Start: 08-02-2024 [facility] Start: 07-30-2024 Thyroid stimulating hormone measurement TSH Level [facility] Start: 05-28-2024 Urine culture Urine Culture [facility] Start: 05-28-2024 [facility] Start: 05-14-2024 Patient referral [facility] Work Phone: Start: 01-04-2024 Thyroid stimulating hormone measurement TSH Level [facility] Start: 10-27-2023 Influenza vaccination [facility] Start: 08-01-2023 End: 07-31-2024 Hemoglobin [Mass/volume] in Blood Hemoglobin and hematocrit, blood Lab Routine Hypogonadism in male Expected: 08/01/2023 (Approximate), Expires: 07/31/2024 [facility] Comment on above: Expected: 08/01/2023 (Approximate), Expi res: 07/31/2024 Start: 08-01-2023 End: 07-31-2024 Testosterone [Mass/volume] in Serum or Plasma Testosterone Lab Routine Hypogonadism in male Expected: 08/01/2023 (Approximate), Expires: 07/31/2024 [facility] Work Phone: Comment on above: Expected: 08/01/2023 (Approximate), Expi res: 07/31/2024 Start: 07-31-2023 End: 07-30-2024 Creatinine [Mass/volume] in Serum or Plasma Creatinine, Serum Lab Routine Pituitary adenoma (HCC) Expected: 07/31/2023 (Approximate), Expires: 07/30/2024 [facility] Comment on above: Expected: 07/31/2023 (Approximate), Expi res: 07/30/2024 Start: 07-31-2023 End: 07-30-2024 DXA Skeletal system.axial Views for bone density DEXA bone density axial skeleton Imaging Routine Hypercalcemia Expected: 07/31/2023, Expires: 07/30/2024 [facility] Comment on above: Expected: 07/31/2023, Expires: Start: 07-31-2023 End: 07-30-2024 Hemoglobin [Mass/volume] in Blood Hemoglobin and hematocrit, blood Lab Routine Hypogonadotropic hypogonadism (HCC) Expected: 07/31/2023 (Approximate), Expires: 07/30/2024 [facility] Comment on above: Expected: 07/31/2023 (Approximate), Expi res: 07/30/2024 Start: 07-31-2023 End: 07-30-2024 MR Pituitary and Sella turcica WO and W contrast IV MR pituitary w and wo IV contrast Imaging Routine Pituitary adenoma (HCC) Expected: 07/31/2023, Expires: 07/30/2024 [facility] Comment on above: Expected: 07/31/2023, Expires: Start: 07-31-2023 End: 07-30-2024 Prolactin Prolactin Lab Routine Pituitary adenoma (HCC) Expected: 07/31/2023 (Approximate), Expires: 07/30/2024 [facility] Work Phone: Comment on above: Expected: 07/31/2023 (Approximate), Expi res: 07/30/2024 Start: 07-31-2023 End: 07-30-2024 Testosterone [Mass/volume] in Serum or Plasma Testosterone Lab Routine Hypogonadotropic hypogonadism (HCC) Expected: 07/31/2023 (Approximate), Expires: 07/30/2024 [facility] Comment on above: Expected: 07/31/2023 (Approximate), Expi res: 07/30/2024 Start: 07-31-2023 End: 07-30-2024 Thyrotropin [Units/volume] in Serum or Plasma TSH Lab Routine 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 Expected: 07/31/2023 (Approximate), Expires: 07/30/2024 [facility] Comment on above: Expected: 07/31/2023 (Approximate), Expi res: 07/30/2024 Start: 07-31-2023 End: 07-31-2023 Patient encounter procedure [facility] Start: 05-28-2023 Patient referral [facility] Work Phone: Start: 04-12-2023 End: 04-12-2023 Patient encounter procedure 04/12/2023 8:00 AM EST Office Visit [facility] Internal Medicine [address] [place] [phone] Ziggy Frazier MD [address] [place] [address] [facility] Start: 02-20-2023 Patient referral [facility] Work Phone: Start: 02-14-2023 End: 02-14-2023 Patient encounter procedure 02/14/2023 7:30 AM EST Office Visit [facility] Family Medicine [address] [place] [address] Leanne Perales MD [address] [facility] [place] [address] [facility] Start: 02-13-2023 Patient discharge [facility] Start: 02-13-2023 [facility] Start: 02-13-2023 Care planning and problem solving actions [facility] Start: 02-12-2023 [facility] Start: 02-12-2023 Following clinical pathway protocol [facility] Start: 02-12-2023 Ambulation without limitation [facility] Start: 02-12-2023 Assessment of risk of venous thromboembolism [facility] Start: 02-12-2023 Bedrest [facility] Start: 02-12-2023 Incentive spirometry [facility] Start: 02-12-2023 Insertion of catheter into peripheral vein [facility] Start: 02-12-2023 Measuring intake and output [facility] Start: 02-12-2023 Notification of physician [facility] Start: 02-12-2023 Oxygen therapy [facility] Start: 02-12-2023 Providing care according to standard [facility] Start: 02-12-2023 Provision of activity privileges [facility] Start: 02-12-2023 Pulse taking [facility] Start: 02-12-2023 Taking patient vital signs [facility] Start: 02-12-2023 End: 02-12-2023 [facility] Start: 02-12-2023 Admission procedure [facility] Start: 02-12-2023 Thrombectomy (Bilateral) Thrombectomy (Bilateral) [facility] Start: 02-06-2023 COVID-19 Vaccine (4 - Booster for Moderna series) COVID-19 Vaccine (4 - Booster for Moderna series) [facility] Comment on above: Postponed from 05/08/2021 (Patient Refus ed) Start: 02-06-2023 COVID-19 Vaccine (4 - Booster) COVID-19 Vaccine (4 - Booster) [facility] Comment on above: Postponed from 05/08/2021 (Patient Refus ed) Start: 02-06-2023 COVID-19 Vaccine (4 - Moderna series) COVID-19 Vaccine (4 - Moderna series) [facility] Comment on above: Postponed from 05/08/2021 (Patient Refus ed) Start: 02-06-2023 Depression Screening Depression Screening [facility] Start: 02-06-2023 Hepatitis C screening Hepatitis C Screening [facility] Comment on above: Postponed from 09/08/1979 (Patient Refus ed) Start: 02-06-2023 HIV screening HIV Screening [facility] Comment on above: Postponed from 1961 (Patient Refus ed) Start: 01-30-2023 End: 01-30-2023 Telemedicine consultation with patient 01/30/2023 10:00 AM EST Telemedicine [facility] [address] [place] [address] Donna Roberts DO [address] [place] [address] [facility] Start: 01-22-2023 End: 01-22-2023 Patient encounter procedure 01/22/2023 8:30 AM EST Office Visit [facility] Oncology [address] [place] [phone] Lauren Borja DO [address] [place] [address] [facility] Start: 01-07-2023 End: 01-07-2023 Patient encounter procedure 01/07/2023 2:45 PM EST Office Visit [facility] [address] [place] [address] Ziggy Arauz MD [address] [place], [place] [id number] [facility] Start: 01-04-2023 End: 01-05-2024 Hemoglobin [Mass/volume] in Blood Hemoglobin and hematocrit, blood Lab Routine Hypogonadism in male Expected: 01/04/2023 (Approximate), Expires: 01/05/2024 [facility] Work Phone: Comment on above: Expected: 01/04/2023 (Approximate), Expi res: 01/05/2024 Start: 01-04-2023 End: 01-05-2024 Macropolactin Macropolactin Lab Routine Hypogonadism in male Expected: 01/04/2023 (Approximate), Expires: 01/05/2024 [facility] Comment on above: Expected: 01/04/2023 (Approximate), Expi res: 01/05/2024 Start: 01-04-2023 End: 01-05-2024 Testosterone [Mass/volume] in Serum or Plasma Testosterone Lab Routine Hypogonadism in male Expected: 01/04/2023 (Approximate), Expires: 01/05/2024 [facility] Comment on above: Expected: 01/04/2023 (Approximate), Expi res: 01/05/2024 Start: 01-02-2023 End: 01-02-2023 Patient encounter procedure [facility] Start: 01-02-2023 End: 01-02-2023 Patient encounter procedure 01/02/2023 8:30 AM EST Office Visit [facility] Vascular Surgery [address] [place] [phone] Ziggy Arauz MD [address] [place] [address] [facility] Start: 12-25-2022 End: 12-25-2022 Admission to same day surgery center 12/25/2022 10:30 AM EDT - 12/25/2022 1:00 PM EDT Surgery [facility] MAIN OR [address] [place] [phone] Ziggy Arauz MD [address] [place], [place] [id number] LEFT ILIOFEMORAL DEEP VEIN THROMBOSIS, THROMBECTOMY AND STENTING [12496 (CPT )] [facility] Comment on above: LEFT ILIOFEMORAL DEEP VEIN THROMBOSIS, T HROMBECTOMY AND STENTING [85618 (CPT )] Start: 12-25-2022 End: 12-25-2022 Anesthesia consultation 12/25/2022 10:30 AM EDT Anesthesia Event [facility] MA[facility] OR [address] [place] [phone] Carissa Romero, CY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 [address] [place] [address] [facility] OR Start: 12-25-2022 End: 12-25-2022 Open/perq placement intravascular stent same 1st TRANSCATHETER PLACEMENT OF AN INTRAVASCULAR STENT(S), OPEN OR PERCUTANEOUS INITIAL VEIN 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 Operating Room Start: 12-25-2022 Subsequent hospital visit by physician 12/25/2022 10:30 AM EDT Hospital Encounter [facility] MAIN OR [address] [facility] [place] [phone] Ziggy Arauz MD [address] [place] [address] [address] [facility] MAIN OR Start: 12-21-2022 End: 12-21-2022 Admission to same day surgery center 12/21/2022 1:30 PM EDT - 12/21/2022 3:00 PM EDT Surgery [facility] MA[facility] OR [address] [place] [phone] Ziggy Arauz MD [address] [place] [address] LEFT ILIOFEMORAL DEEP VEIN THROMBOSIS, THROMBECTOMY AND STENTING [77279 (CPT )] 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 Operating Room Start: 12-21-2022 Subsequent hospital visit by physician 12/21/2022 1:30 PM EDT Hospital Encounter [facility] OR [address] [place] [phone] Ziggy Arauz MD [address] [place] [address] [facility] Start: 12-13-2022 End: 12-13-2022 Admission to establishment 12/13/2022 10:00 AM EDT Pre-Admission Testing [facility] Pre-Admit Testing [address] [facility] [place] [address] [facility] Pre-Admit Testing Start: 12-13-2022 End: 12-13-2022 Patient encounter procedure 12/13/2022 Office Visit Urology Won Smith, CY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 [address] [place] [address] [facility] Start: 12-12-2022 End: 12-12-2022 Patient encounter procedure 12/12/2022 9:00 AM EDT Office Visit [facility] Urology [address] [place] [phone] Tayler Salmon, CYLINDER INSPECTOR AND TESTER - UNIX SYSTEMS ADMINISTRATOR [address] [place] [address] [facility] Start: 12-11-2022 End: 12-11-2022 Patient encounter procedure 12/11/2022 9:20 AM EDT Procedure Visit [facility] Urology [address] [place] [address] Garrison Garza MD [address] [facility] [address] [place] [address] [facility] Start: 12-10-2022 End: 12-10-2022 Patient encounter procedure 12/10/2022 2:15 PM EDT Office Visit [facility] [address] [place] [phone] Ziggy Arauz MD [address] [place] [address] [facility] Start: 12-04-2022 End: 12-04-2022 Patient encounter procedure [facility] [address] [facility] Start: 12-02-2022 Lipid panel Lipids [facility] Start: 12-02-2022 Thyroid stimulating hormone measurement TSH Level [facility] Start: 11-14-2022 End: 11-14-2022 Patient encounter procedure 11/14/2022 11:00 AM EDT Office Visit [facility] Internal Medicine [address] [place] [phone] Cheryl Basilio MD [address] [place] [address] [facility] Start: 10-26-2022 COVID-19 Vaccine ( season) COVID-19 Vaccine () [facility] Start: 10-26-2022 Influenza vaccination Influenza Vaccine (#1) [facility] Start: 10-24-2022 End: 10-24-2022 Patient encounter procedure 10/24/2022 11:20 AM EDT Office Visit [facility] Internal Medicine [address] [place] [address] Cheryl Basilio MD [address] [place] [address] [facility] Start: 10-11-2022 End: 10-12-2023 Bacteria identified in Urine by Culture Urine culture (clean catch) Microbiology Routine Recurrent UTI Expected: 10/11/2022 (Approximate), Expires: 10/12/2023 [facility] Comment on above: Expected: 10/11/2022 (Approximate), Expi res: 10/12/2023 Start: 10-11-2022 End: 10-12-2023 Urinalysis complete panel - Urine Urinalysis with reflex microscopic (clean catch) Lab Routine Recurrent UTI Expected: 10/11/2022 (Approximate), Expires: 10/12/2023 [facility] Work Phone: Comment on above: Expected: 10/11/2022 (Approximate), Expi res: 10/12/2023 Start: 10-11-2022 End: 10-11-2022 Patient encounter procedure 10/11/2022 8:20 AM EDT Office Visit [facility] Internal Medicine [address] [place] [address] Cheryl Basilio MD [address] [place] [address] [facility] Start: 10-10-2022 End: 10-11-2023 Complete PFT pre and post bronchodilator Complete PFT pre and post bronchodilator PFT Routine History of tobacco abuse Centrilobular emphysema (HCC) Expected: 10/10/2022 (Approximate), Expires: 10/11/2023 [facility] [employer] Work Phone: Comment on above: Expected: 10/10/2022 (Approximate), Expi res: 10/11/2023 Start: 10-10-2022 End: 10-11-2023 CT Chest for screening WO contrast CT lung screening low dose Imaging Routine History of tobacco abuse Centrilobular emphysema (HCC) Pleural effusion Expected: 10/10/2022, Expires: 10/11/2023 [facility] Comment on above: Expected: 10/10/2022, Expires: Start: 09-18-2022 Subsequent hospital visit by physician 09/18/2022 8:15 AM EDT Hospital Encounter [facility] [address] [place] [address] Leanne Perales MD [address] [place], [place] [id number] [facility] Start: 09-13-2022 End: 09-14-2023 Bacteria identified in Urine by Culture Urine culture (clean catch) Microbiology Routine Urinary tract infection symptoms Expected: 09/13/2022 (Approximate), Expires: 09/14/2023 [facility] Work Phone: Comment on above: Expected: 09/13/2022 (Approximate), Expi res: 09/14/2023 Start: 08-17-2022 End: 08-18-2023 Bacteria identified in Urine by Culture Urine culture (clean catch) Microbiology Routine Dysuria Urinary frequency Urinary urgency Leukocytes in urine Hematuria, unspecified type Recurrent UTI Expected: 08/17/2022 (Approximate), Expires: 08/18/2023 [facility] [employer] Work Phone: Comment on above: Expected: 08/17/2022 (Approximate), Expi res: 08/18/2023 Start: 08-06-2022 End: 08-06-2022 Patient encounter procedure 08/06/2022 Office Visit Family Medicine Leanne Perales MD [address] [place] [address] [place] [phone] [facility] Start: 08-03-2022 Depression Screen Depression Screen [facility] Start: 08-03-2022 Lipid panel Lipids [facility] Start: 06-13-2022 End: 06-13-2022 Patient encounter procedure 06/13/2022 Office Visit Endocrinology Rocio Ruiz MD [address] [place] [address] [facility] Start: 05-17-2022 End: 05-18-2023 Bacteria identified in Urine by Culture Urine culture Microbiology Routine Right flank pain Expected: 05/17/2022 (Approximate), Expires: 05/18/2023 [facility] Work Phone: Comment on above: Expected: 05/17/2022 (Approximate), Expi res: 05/18/2023 Start: 03-06-2022 End: 03-06-2023 CT Lumbar spine WO contrast CT lumbar spine wo IV contrast Imaging Routine Right flank pain Acute right-sided low back pain without sciatica Expected: 03/06/2022, Expires: 03/06/2023 [facility] Work Phone: Comment on above: Expected: 03/06/2022, Expires: 4 Start: 03-05-2022 End: 03-05-2022 Patient encounter procedure 03/05/2022 Office Visit Endocrinology Rocio Calix MD [address] [place] [address] Endocrinology [facility] Start: 02-06-2022 End: 02-06-2022 Patient encounter procedure 02/06/2022 Office Visit Family Medicine Leanne Perales MD [address] [place] [address] [facility] Start: 12-15-2021 End: 12-15-2022 US Retroperitoneum US retroperitoneum Imaging Routine Complex renal cyst Expected: 12/15/2021, Expires: 12/15/2022 [facility] Work Phone: Comment on above: Expected: 12/15/2021, Expires: 3 Start: 12-07-2021 End: 12-07-2021 Patient encounter procedure 12/07/2021 Appointment Radiology Tayler Rivas, CY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 [address] [place] [address] [facility] [address] [facility] Start: 10-26-2021 Influenza vaccination Flu vaccine (#1) [facility] Start: 09-25-2021 Influenza vaccination Flu vaccine (#1) [facility] Start: 2021 RSV Immunization aged 60 or older (1 - 1-dose 60+ series) RSV Immunization aged 60 or older (1 - 1-dose 60+ series) [facility] Start: 07-11-2021 COVID-19 Vaccine (4 - Booster) COVID-19 Vaccine (4 - Booster) [facility] Start: 07-15-2019 Lipid screen Lipid screen [place], [place] Start: 07-12-2019 Colon cancer screen colonoscopy Colon cancer screen colonoscopy [place], [place] Start: 06-26-2019 Creatinine monitoring Creatinine monitoring [place], [place] Start: 06-26-2019 Potassium monitoring Potassium monitoring [place] Start: 06-26-2019 TSH testing TSH testing [place] Start: 01-20-2019 End: 01-20-2019 Office Visit 01/20/2019 Office Visit Endocrinology Hema Gomez MD [address] [place] [address] [phone] Endocrinology [facility] Start: 01-09-2019 End: 01-09-2019 Office Visit 01/09/2019 Office Visit Family Medicine Leanne Perales MD [address] [place] [address] [phone] [facility] Start: 10-26-2018 Influenza vaccination Flu vaccine (#1) [place] Start: 05-26-2018 Diabetes screen Diabetes screen [facility] Start: 09-08-2011 Screening for malignant neoplasm of lung Lung Cancer Screening [facility] Start: 09-08-2011 Shingles Vaccine (1 of 2) Shingles Vaccine (1 of 2) [place], [place] Start: 2006 Screening for malignant neoplasm of colon [facility] Start: 09-08-1979 Diabetes mellitus screening Diabetes Screening [facility] Start: 09-08-1979 Hepatitis C screening Hepatitis C Screening [facility] Start: 1962 MMR Vaccines (1 of 1 - Standard series) MMR Vaccines (1 of 1 - Standard series) [facility] Start: 1961 Hepatitis B Vaccines (1 of 3 - 3-dose series) Hepatitis B Vaccines (1 of 3 - 3-dose series) [facility] Start: 1961 HIV screening HIV Screening [facility] Start: 1961 Screening for malignant neoplasm of colon [facility] End: 12-26-2018 ACTH ACTH Lab Routine Prolactin secreting pituitary adenoma (HCC) 1 Occurrences starting 12/26/2018 until 12/26/2018 [place] Comment on above: 1 Occurrences starting 12/26/2018 until 12/26/2018 [facility] ACTH Lab Routine Prolactin secreting pituitary adenoma (HCC) 12/26/2018 9:03 AM EDT [place] End: 12-11-2021 Basic Metabolic Panel w/ Reflex to MG Basic Metabolic Panel w/ Reflex to MG Lab Routine Daily for 1 Weeks starting 12/05/2021 until 12/11/2021, 2 completed [facility] Work Phone: Comment on above: Daily for 1 Weeks starting 12/05/2021 un til 12/11/2021, 2 completed End: 12-26-2018 Calcium, Urine Calcium, Urine Lab Routine Primary hyperparathyroidism (HCC) 1 Occurrences starting 12/26/2018 until 12/26/2018 [place] Comment on above: 1 Occurrences starting 12/26/2018 until 12/26/2018 Calcium, Urine Calcium, Urine L ab Routine Primary hyperparathyroidism (HCC) 12/26/2018 5:45 AM EDT [place] End: 12-11-2021 CBC W Auto Differential panel - Blood CBC with Auto Differential Lab Routine Daily for 1 Weeks starting 12/05/2021 until 12/11/2021, 2 completed [facility] Work Phone: Comment on above: Daily for 1 Weeks starting 12/05/2021 un til 12/11/2021, 2 completed CBC W Auto Different ial panel - Blood [facility] metabo [facility] 1999 panel - Serum or Plasma [facility] 1999 panel - Serum or Plasma [facility] End: 12-26-2018 Cortisol Cortisol Lab Routine Prolactin secreting pituitary adenoma (HCC) 1 Occurrences starting 12/26/2018 until 12/26/2018 [place], [place] Comment on above: 1 Occurrences starting 12/26/2018 until 12/26/2018 Cortisol Cortisol Lab Rou rolf Prolactin secreting pituitary adenoma (HCC) 12/26/2018 9:03 AM EDT [place] CT Abdomen and Pelvi s WO and W contrast IV [facility] Culture, Blood 2 Culture, Blood 2 Microbiology STAT 12/01/2021 10:28 AM EDT [employer] Work Phone: End: 11-27-2021 Culture, Urine [facility] Work Phone: Comment on above: One Time for 1 Occurrences starting 04/2021 until 11/27/2021 Doppler ultrasonogra phy of aorta [facility] Electrocardiographic procedure [facility] End: 10-13-2022 Factor 5 leiden [employer] Work Phone: Comment on above: Once (Lab) for 1 Occurrences starting until 10/13/2022 Lipid 1996 panel - S suhail or Plasma [facility] Lipid 1996 panel - S suhail or Plasma [facility] Microscopic examinat ion of blood, culture Culture, Blood Microbiology STAT 12/01/2021 11:05 AM EDT [employer] Work Phone: End: 09-16-2023 MR Pituitary and Sella turcica WO and W contrast IV [employer] Work Phone: Comment on above: Once for 1 Occurrences starting 09/16/19 until 09/16/2023 End: 10-18-2021 MRI BRAIN W WO CONTRAST [employer] Work Phone: Comment on above: Once for 1 Occurrences starting 10/19/19 until 10/18/2021 OUTSIDE PROCEDURE SCAN OUTSIDE P ROCEDURE SCAN Procedures Or[facility]: [facility]17[facility]2022 [facility] on above: Ordered: 09/17/2022 OUTSIDE PROCEDURE SCAN OUTSIDE P ROCEDURE SCAN Procedures Ordered: 10/09/2022 [employer] Comment on above: Ordered: 10/09/2022 Oxygen therapy [[facility] Data Set] Initiate Oxygen Therapy Protocol Respiratory Care Routine As Needed until discontinued starting 12/01/2021 [employer] Work Phone: Comment on above: As Needed until discontinued starting Patient Education ED Conjunctivi tis, Bacterial ED Flank Pain, Uncertain Cause [facility] Work Phone: Patient referral [facility] Work Phone: Prolactin measurement [facility] Prostate specific an tigen measurement [facility] Prostate specific an tigen measurement [facility] T4 free measurement [facility] Testosterone measurement [facility] Thyroid stimulating hormone measurement [facility] Thyroid stimulating hormone measurement [facility] End: 10-10-2022 US [facility]um [facility] Work Phone: Comment on above: Once for 1 Occurrences starting 10/11/19 until 10/10/2022 Vitamin D, 25-hydrox y measurement [facility] Immunizations Immunization Date Immunization Notes Care Provider [facility] 12-14-2021 influenza, injectabl e, quadrivalent, preservative free Leanne Perales MD Work Phone: [facility] 12-14-2021 influenza virus vaccine, unspecified formulation Chana Brown [employer]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 Work Phone: [facility] 08-10-2021 Pneumococcal conjuga te PCV20, PF (Prevnar 20) Rocio Riuz MD Work Phone: [facility] Work Phone: 08-03-2021 zoster vaccine recombinant Rocio Ruiz MD Work Phone: [facility] Work Phone: 03-13-2021 COVID-19, MODERNA BL UE border, Primary or Immunocompromised, (age 12y+), IM, 100 mcg/0.5mL Rocio Ruiz MD Work Phone: [facility] Work Phone: 01-11-2021 influenza, injectabl e, quadrivalent, preservative free Rocio Ruiz MD Work Phone: [facility] 01-11-2021 zoster vaccine recombinant Rocio Ruiz MD Work Phone: [facility] Work Phone: 07-08-2020 COVID-19, MODERNA BL UE border, Primary or Immunocompromised, (age 12y+), IM, 100 mcg/0.5mL Rocio Vejosue Ruiz MD Work Phone: [facility] Work Phone: 06-17-2020 COVID-19, MODERNA BL UE border, Primary or Immunocompromised, (age 12y+), IM, 100 mcg/0.5mL Rocio Veeravanallur Frankwamy MD Work Phone: [facility] Work Phone: 01-11-2020 influenza, injectabl e, quadrivalent, preservative free Rocio Ruiz MD Work Phone: [facility] Work Phone: 01-09-2019 influenza, injectabl e, quadrivalent, preservative free Rocio Ruiz MD Work Phone: [facility] Work Phone: 01-06-2018 influenza, injectabl e, quadrivalent, preservative free [facility] 08-20-2016 pneumococcal polysaccharide vaccine, 23 valent [facility] [place] 08-20-2016 tetanus toxoid, redu jenny diphtheria toxoid, and acellular pertussis vaccine, adsorbed [facility] Payers Date Payer Category Payer Self-pay 2021 Unknown 2021 Unknown [id number] 2014 Private Health Insurance [facility] xxxxxxxxx 2014-Present [phone] [address] [place] [address] xxxxxxxxx [id number]. [id number] 1960 Unknown [id number] 2.16.840.1.739742.3.579.2. 1960 Unknown [id number] 2.16.840.1.337993.3.579.2. 668 1960 Unknown [id number] 2.16.840.1.539748.3.579.2. 668 1960 Unknown [id number] 2.16.840.1.244748.3.579.2. 668 1960 Unknown [id number] 2.16.840.1.961021.3.579.2. 668 1960 Unknown [id number] 2.16.840.1.370925.3.579.2. 627 1960 Unknown [id number] 2.16.840.1.552319.3.579.2. 627 1960 Unknown [id number] 2.16.840.1.312710.3.579.2. 627 Private Health Insurance [facility] [id number] Unknown [id number] 2.16.840.1.076284.3.579.2. 462 Unknown [id number] 2..840.1.237796.3.579.2. 462 Unknown [id number] 2.840.1.201971.3.579.2. 462 Unknown [id number] 2..840.1.478240.3.579.2. 462 Unknown [id number] 2..840.1.119602.3.579.2. 462 Unknown [id number] 2..840.1.724576.3.579.2. 462 Unknown [id number] 2.840.1.679508.3.579.2. 462 Unknown [id number] 2.16.840.1.666369.3.579.2. 462 Unknown [id number] 2.16.840.1.245867.3.579.2. 462 Unknown [id number] 2.16.840.1.790464.3.579.2. 462 Unknown [id number] 2.16.840.1.176705.3.579.2. 462 Unknown [id number] 2.16.840.1.911935.3.579.2. 462 Unknown [id number] 2.16.840.1.042867.3.579.2. 462 Unknown [id number] 2.16.840.1.095328.3.579.2. 462 Unknown [id number] 2.16.840.1.843962.3.579.2. 462 Unknown [id number] 2.16.840.1.790088.3.579.2. 462 Social History Date Type Detail Facility Start: 08-08-2018 End: 08-02-2024 Tobacco smoking status NHIS Current every day smoker [place] Start: 03-28-1982 End: 03-28-2022 History of tobacco use Cigarette Smoker [place] Start: 08-08-2018 End: 03-06-2022 Cigarettes smoked current (pack per day) - Reported [place] Start: 08-08-2018 End: 10-12-2022 Alcohol intake No [place] Sex Assigned At Not on file [place] Start: 01-09-2019 End: 01-02-2023 Tobacco use and exposure Smokeless tobacco non-user [employer] Work Phone: Start: 2021 End: 03-06-2022 Alcohol intake Current non-drinker of alcohol (finding) [employer] Work Phone: Start: 07-11-2020 End: 02-06-2022 History SDOH Alcohol Frequency 2 [employer] Work Phone: Start: 07-11-2020 End: 02-06-2022 History SDOH Alcohol Std Drinks 1 [employer] Work Phone: Start: 12-26-2019 History SDOH Alcohol Comment rarely [facility] Work Phone: Start: 01-09-2019 History SDOH Physical Activity DPW 0 [employer] Work Phone: Start: 08-03-2021 End: 02-06-2022 History SDOH Financial 5 [facility] Work Phone: Start: 1960 Sex Assigned At Male [facility] Start: 09-16-2021 End: 11-14-2022 Exposure to SARS-CoV-2 (event) Not sure [facility] How hard is it for y ou to pay for the very basics like food, housing, medical care, and heating Not hard at all [facility] (I/We) worried luna er (my/our) food would run out before (I/we) got money to buy more. Never true [facility] Start: 12-14-2021 Gender identity Identifies as male gender (finding) [facility] Start: 12-14-2021 Sexual orientation Heterosexual (finding) [facility] Start: 09-14-2022 End: 05-28-2024 Tobacco smoking status COIS Occasional tobacco smoker [facility] How often to you hav e a drink containing alcohol? Monthly or less [facility] How many standard drinks containing alcohol do you have on a typical day? 1 or 2 [facility] How often do you hav e 6 or more drinks on 1 occasion? Never [facility] Start: 10-10-2022 End: 01-02-2023 Tobacco smoking status COIS Ex-smoker [facility] Start: 03-28-1982 End: 03-28-2022 History of tobacco use Current smoker [facility] Start: 10-10-2022 End: 07-31-2023 Alcohol intake Current drinker of alcohol (finding) [facility] Within the last year , have you been afraid of your partner or ex-partner? No [facility] Start: 12-10-2022 Alcohol Comment occassionally [facility] Start: 02-06-2023 End: 06-06-2023 Tobacco smoking status [facility] Unknown if ever smoked [facility] Start: 12-24-2023 Tobacco smoking status Heavy tobacco smoker (finding) [facility] Sexual Orientation [place] Chidi phillips [facility] Start: 09-27-2022 End: 06-02-2024 Sex Male (finding) [facility] Medical Equipment Procedure Code Equipment Code Equipment Origin al Text Equipment Identifier Dates Iliofemoral vein stent [id number] [id number] FDA Start: 02-12-2023 Iliofemoral vein stent ()[id number] [id number] FDA Start: 02-12-2023 Goals Date Patient Goal [...] Assessment Result Facility 02-13-2023 Functional status Activity Abili ty Standby Assist [facility] Work Phone: 02-13-2023 Functional status Ambulates [facility] Work Phone: Mental Status Date Assessment Result Facility 02-13-2023 Cognitive function Level Of Cons ciousness Awake;Alert;Appropriate;Follow s Commands [facility] Work Phone: 02-13-2023 Cognitive function Voice/Name [facility] Work Phone: Clinical Notes 11-27-2021 to 08-11-2024 Note Date & Type Note Facility 08-11-2024 Progress note [facility] 08-11-2024 Progress note Note Date/Time August 11, 2024 3:57pm [facility] [address] [place] [address] [place] [address] OFFICE VISIT Date of Service: 08/11/24 MR#: [id number] Acct: [id number] Name: CORRIE QUEEN Rep #: [id number] : 1960 Provider: Dr. 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 Required: No Accompanied by: Self Is patient in pain?: Yes (headache and eyes are uncomfortable ) Pain scale (1-10): 4 Allergies meperidine (From Demerol) Adverse Reaction (Intermediate, Verified 08/11/24 15:30) Nausea/Vom/Diarrhea Medications ?Medication ?Instructions ?Recorded ?Confirmed ?Type rosuvastatin 10 mg tablet (Crestor) 10 mg PO DAILY 08/1708/11/24 History aspirin 81 mg tablet,delayed 81 mg PO BREAKFAST #30 ta bs 02/13/23 08/11/24 Rx release blood pressure monitor #1 ea 03/21/23 08/11/24 Rx triamcinolone acetonide 0.1 % 1 applic topical BID #80 grams 07/12/23 08/11/24 Rx topical cream rivaroxaban 20 mg tablet 20 mg PO QPM #90 tabs 08/11/24 Rx tadalafil 5 mg tablet 5 mg PO DAILY #90 tabs 06/0208/11/24 Rx tamsulosin 0.4 mg capsule 0.4 mg PO DAILY #90 caps 01/1908/11/24 Rx cabergoline 0.5 mg tablet 1 mg (2 x 0.5 mg) PO 2XW #48 tabs 07/17/24 08/11/24 Rx fenofibrate 160 mg tablet 160 mg PO DAILY #90 tabs 08/11/24 Rx levothyroxine 100 mcg tablet 100 mcg PO DAILY #90 tabs 07/17/24 08/11/24 Rx testosterone 2 pump topical QDAY #150 gra ms 07/17/24 08/11/24 Rx amoxicillin 500 mg tablet 500 mg PO TID #21 tabs 08/1108/11/24 Rx Nurse's Note: redness and pressure in eyes headache and congestion [facility] Hypercalcemia 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 Hypogonadism 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 Sebaceous cyst of scrotum Kidney pain Liver disease Hearing problem Back problem Wears hearing aid Loss of hearing MRSA infection Marijuana use History of renal disease High cholesterol DVT (deep venous thrombosis) History of diverticulitis Smoker History of edema Ileofemoral deep vein thrombosis (~11/2022) Small bowel diverticular disease Surgical History History of colon resection Hx of tonsillectomy H/O knee surgery Hx of colonoscopy Hx of cholecystectomy Social History Smoking Status: Current every day smoker tobacco type: cigarettes Tobacco: How many years used: 30 how long ago did patient quit smokin-6months ago alcohol intake: current substance use type: does not use what type of physical activity do you participate in: none HPI HPI Chief Complaint: eyes pressure and congestion Details: CORRIE QUEEN, is a 63 M who presents to the office today for problems with his eyes being itchy and runny. His head being congested and having significant sinus pain and pressure over the left maxillary sinus. He also has a little bitmore of a cough than usual. He has not been running a fever. ROS Const Constitutional: No body ache, excessive [...] at rest, chest pain with exertion, excessive sweating,shortness of breath, dyspnea on exertion, lightheadedness, orthopnea or palpitations Gastro GI: No abdominal pain, change in bowel habits, constipation, cramping, diarrhea,nausea/dyspepsia or vomiting Genitourinary Male: No burning urination, [...] frequent falls, headache(s), memory loss, numbness or tingling Psych Psychiatric: No anxiety, No change in appetite, No depression, No memory loss and No Thoughts of harming yourself/Others Endo Endocrine: No cold intolerance, excessive sweating, fatigue, flushing, heat intolerance, increased thirst/drinking, increased hunger or weight change Aller/Imm Allergy/Immunologic: No itchy eyes, seasonal allergy symptoms, hives or wheezing Tomas/Lymp Hematologic/Lymphatic: No easy bleeding, easy bruising or enlarged lymph nodes Exam Const General: cooperative and no acute distress HENMT Head: normal to inspection Ears: hearing grossly normal bilaterally and TM's normal bilaterally Nose: nasal discharge clear bilaterally Face and sinus: sinus tenderness maxillary Mouth: oral mucosae normal Teeth and gingiva: dentition normal Throat: postnasal drainage Eyes Conjunctivae: conjunctival abnormality bilaterally conjunctival injection Pupils: PERRL Neck Neck: normal visual inspection Chest Chest palpation & inspection: normal inspection of the chest Resp Effort & Inspection: normal respiratory effort Auscultation: Bilateral: Crackles Cardio Rate: regular rate Rhythm: regular rhythm Musc Musculoskeletal: No joint tenderness Psych Thought Content: normal Judgment: judgment good Coding Level of Care Code Off vis,est,level 3 Diagnoses Acute non-recurrent maxillary sinusitis J01.00 Chronicity: acute Recurrence: non-recurrent Sinusitis location: maxillary Assessment and Plan Assessment and Plan (1) Sinusitis: Status: Acute Qualifiers: Chronicity: acute Recurrence: non-recurrent Sinusitis location: maxillary Qualified Code(s): J01.00 - Acute maxillary sinusitis, unspecified Plan: I have had nursing give him an injection of Kenalog 40 mg and started him on amoxicillin. 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 Orders: Orders Kenalog Injection Today J32.9 - Chronic sinusitis, unspecified Medications: New Kenalog (triamcinolone acetonide) 40 mg IM ONCE 1 mL 0RF NS J32.9 - Chronic sinusitis, unspecified amoxicillin 500 mg PO TID 21 tabs 0RF 08/11/24 4708 <Electronically signed by Justice espinoza DO> Date _ Justice Bailey DO Cosigner Signature: Date (if applicable) CC: ~ [facility] Work Phone: 1(971) 713-169006-08-2025 Radiology Diagnostic study note [facility] Imaging Services [address] [place], [place] [address] Abdomen/Pelvis without Cont MR#: [id number] Acct: [id number] Name: CORRIE QUEEN Rep #: [id number] : 1960 M 63 From: Bernadette Ovalles MD PCP: Dr. Justice Bailey DO Status: RE G ER Study:Abdomen/Pelvis without Cont Date of Exa m: 08/02/24 Exam# [id number] Ordering Dr: Karine Hawkins DO PROCEDURE: ABDOMEN/PELVIS WITHOUT CONT 08/02/2024 REASON FOR EXAM: RIGHT FLANK PAIN TECHNIQUE: Abdomen and pelvis CT without intravenous contrast. Noncontrast technique limits evaluation of the abdominal and pelvic viscera. Coronal and Sagittal reconstruction series were provided. One or more dose reduction techniques were used (e.g., Automated exposure control, adjustment of the mA and/or kV according to patient size, use of iterative reconstruction technique). PATIENT PREPARATION: Per protocol ORAL CONTRAST TYPE: None. COMPARISON: CT abdomen and pelvis 06/21/2023 FINDINGS: Lung bases: Bibasilar atelectasis. Few scattered calcified granulomas. Liver: Severe diffuse steatosis.. No focal lesion. Hepatomegaly, craniocaudal length 19.1 cm. Gallbladder: No ductal dilation. Status post cholecystectomy. Spleen: Splenomegaly, craniocaudal length 14.1 cm. No focal lesion. Pancreas: Normal size. No surrounding inflammation. Adrenals: Unremarkable. Kidneys: 24 mm left upper pole simple cyst. No calculi or hydronephrosis. Bladder: Circumferential urinary bladder wall thickening. Reproductive Organs: No pelvic mass. Bowel: Small hiatal hernia. The stomach is otherwise unremarkable. No bowel dilation or wall thickening. Colonic diverticulosis without diverticulitis. Moderate colonic stool. Appendix: Normal appendix. Lymph nodes: No suspicious lymph node enlargement. Vasculature: Diffuse atherosclerotic calcification of the abdominal aorta and iliac arteries. Postoperative changes left common iliac vein-proximal femoral vein stent. Peritoneum / Retroperitoneum: No ascites. No pneumoperitoneum. Bones: Degenerative changes of the lumbar spine. Soft tissue: Small fat containing umbilical hernia. CT/Abdomen/Pelvis without Cont IMPRESSION: 1. No acute findings in the abdomen and pelvis. 2. Hepatosplenomegaly and diffuse steatosis. Reading Location: [facility] CC: Dr. Justice Bailey, DO; Dr. 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 June 8:13am Pituitary macroadenoma chronic Ma y 2024 8:13am Smoker chronic July 17, 2024 8:13am [facility] Work Phone: 1(651) 454-167404-03-2025 Evaluation note* Diagnosis Onset Date Resolution Status Admit Date Strain of lumbar region acute A pri2024 12:52pm Hypercalcemia chronic July 17, 2 025 8:13am Hypogonadism 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 June 8:13am 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 June 8:13am Pituitary macroadenoma chronic Ma y 2024 8:13am Smoker chronic July 17, 2024 8:13am Sinusitis acute August 11 3:23pm [facility] Work Phone: 1(851) 911-897502-17-2025 Chief complaint+Reason for visit Narrative * Chief Complaint Admit Date LEFT LEG SWELLING April 13, 2024 9:03am Referral Order May 14, 2024 10: 04am CONCERN FOR UTI May 28, 2024 12:5 2pm Amb Documentation July 01, 2024 9:18am Pituitary July 17, 2024 8:13a m flank pain, eye August 02, 2024 8:46a m Reason for Visit Admit Date Strain of lumbar region May 28, 2024 12:52pm Hypercalcemia July 17, 2024 8:13a m Hypogonadism male July 17, 2024 8:13a m Hypothyroidism due to Stanley's thyroi ditis July 17, 2024 8:13am Pituitary macroadenoma July 17, 2024 8: 13am Smoker July 17, 2024 8:13a m [facility] Work Phone: 1(969) 315-745302-17-2025 Chief complaint+Reason for visit Narrative * Chief Complaint Admit Date LEFT LEG SWELLING April 13, 2024 9:03am Referral Order May 14, 2024 10: 04am CONCERN FOR UTI May 28, 2024 12:5 2pm Amb Documentation July 01, 2024 9:18am Pituitary July 17, 2024 8:13a m flank pain, eye August 02, 2024 8:46a m EYES ARE RUNNY, NOT FEELING RIGHT July 262024 3:23pm Reason for Visit Admit Date Strain of lumbar region May 28, 2024 12:52pm Hypercalcemia July 17, 2024 8:13a m Hypogonadism male July 17, 2024 8:13a m Hypothyroidism due to Stanley's thyroi ditis July 17, 2024 8:13am Pituitary macroadenoma July 17, 2024 8: 13am Smoker July 17, 2024 8:13a m Sinusitis August 11, 2024 3:23 pm [facility] Work Phone: 1(875) 458-717212-31-2024 Evaluation note* Diagnosis Onset Date Resolution Status Admit Date Sebaceous cyst of scrotum acute February 25, 2024 10:08am Left leg swelling acute March 18, 2024 1:16pm Stenosis of iliac vein acute Ja nuary 2024 1:16pm Venous insufficiency acute Rm scottie 2024 1:16pm High cholesterol acute March 31, 2024 10:21am Pituitary abnormality acute Feb ru2024 10:21am Thyroid disease acute March 31, 2024 10:21am BPH (benign prostatic hyperplasia) chronic March 31 10:21am Elevated blood pressure reading chronic March 31 10:21am Strain of lumbar region acute A pril 2024 12:52pm [facility] Work Phone: 1([phone]) 530-453206-06-2024 Telephone encounter Note* Telephone Encounter - Janette Calderon - 08/01/2023 4:13 PM EDT Message released to patient as written. Patient's further questions if applicable: Patient voiced understanding. Stated he will pick his medication up tomorrow. Please have clinical team call patient to schedule to have testosterone levelschecked. Were all questions from office addressed or relayed to the patient from encounter: Yes [id number] Miscellaneous Notes* Telephone Encounter - Janette Calderon [...] after starting testosterone treatment documented [id number] Telephone encounter Note* Telephone Encounter - Rocio [...] checked 2 months after starting testosterone treatment [id number] History of Present illness Narrative* Rocio Ruiz MD - 07/31/2023 9:20 AM EDT Images from the original note were not included. 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 and pituitary MRI had shown a 3 [...] is supposed to have followed up with manager er Dr. Monge , but has missed his [...] rearrange some schedules to get him in [place]. She was going to call and talk with Corrie. Acute cystitis without hematuria 02/27/2022 Anxiety patrick with surgery Benign neoplasm of pituitary gland and craniopharyngeal duct (pouch) ([facility]) Chest pain, unspecified Chills 05/28/2022 Chronic flank pain Chronic pain Diverticulitis DVT (deep venous thrombosis) ([facility]) 2022 left leg Esophageal reflux Essential hypertension, [...] the signing physician directly. documented in this [facility]04-24-2024 Telephone encounter Note* Telephone Encounter - Angela Brandt RN - 06/19/2023 6:50 PM EDT We have been unable to reach your patient to schedule their testing. Test Name: Complete PFT pre and post bronchodilator 1st Attempt: 06/15/2023 Goojitsuhart message 2nd Attempt: 06/19/2023 LVM. [id number] Miscellaneous Notes* Telephone Encounter - Angela Brandt RN - 06/19/2023 6:50 PM EDT We have been unable to reach your patient to schedule their testing. Test Name: Complete PFT pre and post bronchodilator 1st Attempt: 06/15/2023 Goojitsuhart message 2nd Attempt: 06/19/2023 LVM. documented in this [facility]03-05-2024 Telephone encounter Note* Telephone Encounter - Isa Cali NP - 04/30/2023 9:36 AM EST Multiple no shows and cancellations. Needs seen in office for refills. Isa [facility] HospitalYxsgzh94-94-9079 Miscellaneous Notes* Telephone Encounter - Isa Cali NP - 04/30/2023 9:36 AM EST Multiple no shows and cancellations. Needs seen in office for refills. Isa documented in this [facility]12-20-2023 Discharge summary Author Ryan Ceja [facility] February 13, 2023 3:02pm Note Date/Time February 13, 2023 1:56pm [facility] Medical Records Department [address] [place] [address] Discharge Summary 02/13/23 1345 MR#: [id number] Acct: [id number] Name: CORRIE QUEEN Rep #:[id number] : 1960 62 From: Dolly SHAFFER PCP: CHERYL BASILIO Status:ADM TAMMY Location: [place] [address] Providers Date of Admission: 02/12/23 Primary Care [...] 77.5 H, Lymph % (Auto) 12.6 L, Stanley % (Auto) 8.5, Eos % (Auto) 0.8, [...] appointment time please contact the office at [phone]. Meaningful Use Info Meaningful Use Diagnoses (Choose [...] appointment time please contact the office at [phone]. Discharge Orders/Prescriptions Prescriptions: New clopidogrel 75 mg [...] take 1 1/2 tab by mouth on Tu and Sat fenofibrate 160 mg tablet 160 [...] Dr. Ryan Ceja MD; CHERYL BASILIO~ Signed [facility] Work Phone: 1(316) 731-485112-20-2023 Progress note Author Ryan Hamburg [facility] February 13, 2023 3:02pm Note Date/Time February 13, 2023 12:22pm [facility] Medical Records Department [address] [place] [address] Progress Note - Surgery 02/13/23 1218 MR#: [id number] Acct: [id number] Name: CORRIE QUEEN Rep #:[id number] : 1960 62 From: Dolly SHAFFER PCP: CHERYL BASILIO Status:ADM TAMMY Location: [facility] [id number] Subjective Subjective Mr. Queen is s/p [...] 77.5 H, Lymph % (Auto) 12.6 L, Stanley % (Auto) 8.5, Eos % (Auto) 0.8, [...] by Ryan Ceja MD> CC: ~ Signed [facility] Work Phone: 1(213) 957-174312-20-2023 Procedure [facility] 01-25-2023 Telephone encounter Note* Telephone Encounter - Rocio Ruiz MD - 01/25/2023 9:44 AM EST 90 day supply for cabergoiline sent [facility] HospitalYmdoso46-99-8525 Miscellaneous Notes* Telephone Encounter - Rocio Ruiz MD - 01/25/2023 9:44 AM EST 90 day supply for cabergoiline sent * Telephone Encounter - Lilia Hart - 01/25/2023 8:46 AM EST Name of caller: Corrie Contact phone number: [phone] Relationship to Patient: patient Provider: Dr Ruiz Practice: Endo Chief Complaint/Reason for Call: Pt states that Dr Mendoza was aware that the pt was on vacation and Francisca Mendoza wanted to know immediately when the pt came back in town so that a prescription of a 90 day supply of cabergoline (Dostinex) 0.5 MG tablet [[id number]] would be call in to the [facility] pharmacy on file. Pt states is all out of the medication. Please advise Best time of day caller can be reached: Any Patient advised that office/PCP has 24-48 business hours to return their call: Yes documented in this [facility]12-01-2023 Telephone encounter Note* Telephone Encounter - Lilia Hart - 01/25/2023 8:46 AM EST Name of caller: Corrie Contact phone number: [phone] Relationship to Patient: patient Provider: Dr Ruiz Practice: Endo Chief Complaint/Reason for Call: Pt states that Dr Mendoza was aware that the pt was on vacation and thatDr Mendoza wanted to know immediately when the pt came back in town so that a prescription of a 90 day supply of cabergoline (Dostinex) 0.5 MG tablet [[id number]] would be call in to the [facility] pharmacy on file. Pt states is all out of the medication. Please advise Best time of day caller can be reached: Any Patient advised that office/PCP has 24-48 business hours to return their call: Yes CloudianAkslky14-87-5175 Telephone encounter Note* Telephone Encounter - Alma Beebe MA - 01/08/2023 11:51 AM EST Submitted PA for testosterone pump 2 pumps daily for 150g for a 30 day supply. Waiting on determination from [facility] [employer]. [id number] Miscellaneous Notes* Telephone Encounter - Alma Beebe [...] 01/04/2023 11:05 AM EST Name of caller: Corrie Contact phone number: [phone] Relationship to Patient: patient Provider: Joseph Practice: [...] return their call: Yes [facility] NorthNymrds66-01-0373 Telephone encounter Note* Telephone Encounter - Rocio Ruiz MD - 01/04/2023 12:38 PM EST Was informed by pharmacy that prescription for androgel needs prior auth , can you please help withthis ? Thanks [facility] HospitalQohtid52-52-2569 Telephone encounter Note* Telephone Encounter - Rocio [...] 01/03/2023 TESTOSTERONE 72 - 623 ng/dL 103 Cureatr11-10-2023 Telephone encounter Note* Telephone Encounter - Alma Beebe MA - 01/04/2023 11:36 AM EST It looks like you sent the cabergoline in on 01/02/23, but does he take testosterone? I do not see it. Arcarios-10-2023 Telephone encounter Note* Telephone Encounter - Pacheco Dobson - 01/04/2023 11:05 AM EST Name of caller: Corrie Contact phone number: [phone] Relationship to Patient: patient Provider: Joseph Practice: [...] business hours to return their call: Yes [employer]08-2023 Telephone encounter Note* Telephone Encounter - Rocio Ruiz MD - 01/02/2023 4:56 PM EST called and spoke with pharmacist, insurance will not cover a 90-day supply right now but will covera 30-day supply. Prescription for 30 days sent to the pharmacy, informed patient. [place] [id number] Miscellaneous Notes* Telephone Encounter - Rocio Ruiz [...] that date. Pt requesting a call back [place]. documented in this [facility]11-08-2023 Telephone encounter Note* Telephone Encounter - Daphne [...] that date. Pt requesting a call back [place]. [place] [id number] History of Present illness Narrative* Rocio Ruiz MD - 01/02/2023 10:40 AM EST Images from the original note were not included. [facility] [address] [place] [address] [facility] [address] Dept: [phone] Dept Loc: [phone] Visit type: Established Reason for Visit: Follow-up, [...] Cheryl Basilio MD Referring is PCP Previous Claim Processing Specialist: Dr Sal & Dr Benito Initial [facility] endocrinology office visit: 2013 Last office visit: August 2021 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 and pituitary MRI had shown a 3 [...] is supposed to have followed up with manager er Dr. Monge , but has missed his [...] rearrange some schedules to get him in [place]. She was going to call and talk with Corrie. Acute cystitis without hematuria 02/27/2022 Anxiety patrick with surgery Benign neoplasm of pituitary gland and craniopharyngeal duct (pouch) ([facility]) Chest pain, unspecified Chills 05/28/2022 Chronic flank pain Chronic pain Diverticulitis DVT (deep venous thrombosis) ([facility]) 2022 left leg Esophageal reflux Essential hypertension, [...] the signing physician directly. documented in this [facility]11-08-2023 Miscellaneous Notes* Addendum Note - Jocelyne Meng - 01/02/2023 10:40 AM ESTAddended by: JOCELYNE MENG on: 01/03/2023 08:18 AM Modules accepted: Orders documented in this [place] [address]-08-2023 Note* Addendum Note - Jocelyne Meng - 01/02/2023 10:40 AM ESTAddended by: JOCELYNE MENG on: 01/03/2023 08:18 AM Modules accepted: Orders [facility] HospitalXemqvo46-62-3359 NoteAddended by: JOCELYNE MENG on: 01/03/2023 08:18 AM Modules accepted: [facility]11-08-2023 History of Present illness Narrative* Ziggy Arauz MD - 01/02/2023 8:30 AM EST 01/02/2023 Corrie Queen 1960 Chief Complaint Patient presents with [...] for any concerns. . documented in this [facility]10-31-2023 Hospital Discharge instructions* Discharge Instructions* Pacheco [...] through Care Everywhere. * Bleeding After Surgery (Cymro) documented in this [facility]10-31-2023 Emergency department Note* Pacheco Ortiz MD - 12/25/2022 6:40 PM EDT Emergency Department Encounter [facility] ED Patient: Corrie Queen : 1960 Date of Evaluation: 12/25/2022 ED Provider: Pacheco Ortiz MD Note: I wore an N95 mask and gloves during this encounter. CHIEF COMPLAINT: post op bleeding Chief Complaint Patient presents with Post-op Problem Surgery today for clot removal in left lower leg, presenting status post-op saturated tegaderm and gauze behind the left knee, blood draining down leg upon arrival HPI: Corrie Queen is a 62 y.o. male with [...] ointment (has no administration in time range) Corrie Queen is a 62 y.o. male who [...] for clarification. Pacheco Ortiz MD Acute Care [facility] Pacheco Ortiz MD 12/25/222016 * Paola Paula RN - 12/25/2022 6:40 PM EDT Patient ambulatory to room 4 presenting status post-op with drainage from site. Patient had an attempted thrombectomy of the left lower leg today with entry behind the left knee; he presents with shadowing on his jeans, and saturated dressing post-op. Surgery was around noon, [facility] and when he [...] area, home w family documented in this [facility]10-31-2023 Emergency department Triage note* Paola Paula RN - 12/25/2022 6:40 PM EDT Patient ambulatory to room 4 presenting status post-op with drainage from site. Patient had an attempted thrombectomy of the left lower leg today with entry behind the left knee; he presents with shadowing on his jeans, and saturated dressing post-op. Surgery was around noon, [facility], and when he [...] preparing for surgery. Call light in reach. [facility] HospitalDpeilz90-44-8024 Emergency department Triage note* Sierra Brewer RN - 12/25/2022 6:40 PM EDT Bleeding subsided. Pt given dc instructions and follow up care. Pt verbalizes understanding. Pt ambindep to dc area, home w family [facility] HospitalDcjuox56-36-9669 Physician Emergency department Note* Pacheco Ortiz MD - 12/25/2022 6:40 PM EDT Emergency Department Encounter [facility] ED Patient: Corrie Queen : 1960 Date of Evaluation: 12/25/2022 ED Provider: Pacheco Ortiz MD Note: I wore an N95 mask and gloves during this encounter. CHIEF COMPLAINT: post op bleeding Chief Complaint Patient presents with Post-op Problem Surgery today for clot removal in left lower leg, presenting status post-op saturated tegaderm and gauze behind the left knee, blood draining down leg upon arrival HPI: Corrie Queen is a 62 y.o. male with [...] ointment (has no administration in time range) Corrie Queen is a 62 y.o. male who [...] for clarification. Pacheco Ortiz MD Acute Care [facility] Pacheco Ortiz MD 12/25/222016 [facility] HospitalUqafyw53-15-7595 Note* Nurse Navigation Note - Charley Miguel RN - 12/25/2022 4:58 PM EDT Patient upset wanting to leave,eye drops called to his pharmacy, patient transported out via w/c with the daughter [facility] HospitalGhxvfw06-67-0022 Miscellaneous Notes* Nurse Navigation Note - Charley [...] PM EDT Family notified of arrival to [facility] * Op Note - Ziggy Arauz MD - 12/25/2022 12:07 PM EDT OPERATIVE REPORT SURGEON: ZIGGY ARAUZ M.D. Procedures: Left leg venogram. Preoperative [...] and exchanged over a wire for a 8-Bulgarian sheath tjo the level of the right [...] transferred to recovery room in stable condition. ZIGGY ARAUZ MD documented in this [facility]10-31-2023 Note* Nurse Navigation Note - Charley [...] Santiago notified they will place new orders. [facility] [id number] Note* Nurse Navigation Note - Charley Miguel RN - 12/25/2022 4:03 PM EDT Discharge instructions reviewed with the patient and the daughter, patient to follow up with after discharge, no further questions , patient instructed on surgical site care. [facility] HospitalEykzef45-42-1183 Note* Perioperative Nursing Note - Charley Miguel RN - 12/25/2022 3:52 PM EDT Daughter called to the room [facility] HospitalZbbebj57-42-0364 Note* Perioperative Nursing Note - Charley Miguel RN - 12/25/2022 2:49 PM EDT Family member updated Maury daughter regarding current status and bedrest [facility] HospitalJasado74-87-4813 NotePatient: Corrie Queen Procedure Summary Date: 12/25/22 Room / Location: [facility] Operating Room Anesthesia Start: 1207 Anesthesia Stop: 1414 Procedures: LEFT LEG VENOGRAM (Left) TRANSCATHETER PLACEMENT OF AN INTRAVASCULAR STENT(S), OPEN OR PERCUTANEOUS INITIAL VEIN (Left) Diagnosis: 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) (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) [I82.529]) Surgeons: Ziggy Arauz MD Responsible Provider: Hakan Krishna MD [...] discharged once all PACU criteria has been met.[facility] [id number] NotePatient: Corrie Queen Procedure Summary Date: 12/25/22 Room / Location: [facility] Operating Room Anesthesia Start: 1207 Anesthesia Stop: 141 Procedures: LEFT LEG VENOGRAM (Left) TRANSCATHETER PLACEMENT OF AN INTRAVASCULAR STENT(S), OPEN OR PERCUTANEOUS INITIAL VEIN (Left) Diagnosis: 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 HospitalTlsrtm35-28-2696 Hospital Discharge instructions* Discharge Instructions* Pacheco Santiago [...] please call our office. documented in this [facility]10-31-2023 NoteAirway Date/Time: 12/25/2022 12:12 PM Urgency: scheduled General Information and Staff Patient location during procedure: Procedural Resident/HYDROLOGIST: FELISHA Winn CRNA Performed: HYDROLOGIST Performed by: FELISHA Winn CRNA Authorized by: Stella W Warnement, CYLINDER INSPECTOR AND TESTER - HYDROLOGIST Indications and Patient Condition Indications for airway management: anesthesia Sedation level: RSI Preoxygenated: yes Patient position: sniffing MILS maintained throughout Mask difficulty assessment: 1 - vent by mask Final Airway Details Final airway type: endotracheal airway Successful airway: ETT Cuffed: yes Successful intubation technique: video laryngoscopy Endotracheal tube insertion site: oral Blade: [place] scope Blade size: #3 ETT size (mm): 8.0 Placement verified by: chest auscultation Measured from: teeth ETT to teeth (cm): 22 Number of attempts at approach: [address] [place], [place] [address]10-31-2023 Attending History and physical note* Ziggy Arauz MD - 12/25/2022 12:07 PM EDT [...] Source Note - Carissa Romero APRN - FARM EQUIPMENT SERVICE TECHNICIAN - 12/13/2022 10:00 AM EDT Images from the original note were not included. Comprehensive Pre Surgical History and Physical ? Name: Corrie Queen : 1960 (Age-62 y.o.) Date of Service: Pt seen/examined on 12/13/2022 Procedure Information Date/Time: 12/25/22 1030 Procedures: LEFT ILIOFEMORAL DEEP VEIN THROMBOSIS, THROMBECTOMY AND STENTING (Left) TRANSCATHETER PLACEMENT OF AN INTRAVASCULAR STENT(S), OPEN OR PERCUTANEOUS INITIAL VEIN (Left) Location: [facility] Operating Room Surgeons: Ziggy Arauz MD Chief Complaint: Chronic blood clot [...] who we are asked to see/evaluate by [place] [address] for pre-operative evaluation prior to . LEFT ILIOFEMORAL DEEP VEIN THROMBOSIS, THROMBECTOMY AND STENTING (Left) [03715 CPT(R)] TRANSCATHETER PLACEMENT OF AN INTRAVASCULAR STENT(S), OPEN OR PERCUTANEOUS INITIAL VEIN (Left) [67763 CPT(R)] Anesthesia type: General The patient is [...] artery. He has been taken to the over the weekend and the swelling has improved but is still significant. He would like to see if there is any further treatment. He is retired but remains quite active.. 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 Denies history of CO, CAD, CHF, TIA, CVA Past Medical History: Past Medical History: 09/15/2020: Abscess of scrotum Comment: Last Assessment & Plan: Urology office was contacted and I spoke to the nurse practitioner Farzana and she was going to see if they could rearrange some schedules to get him in [place]. She was going to call and talk with Corrie. 02/27/2022: Acute cystitis without hematuria No date: Anxiety Comment: patrick with surgery No date: Benign neoplasm of pituitary gland and craniopharyngeal duct (pouch) ([facility]) No date: Chest pain, unspecified 05/28/2022: Chills No date: Diverticulitis 2022: DVT (deep venous thrombosis) ([facility]) Comment: left leg No date: Esophageal reflux [...] hyperlipidemia No date: Other anterior pituitary disorders ([facility]) No date: Other testicular hypofunction No date: [...] Electronically signed by: Carissa Romero APRN - FARM EQUIPMENT SERVICE TECHNICIAN Date: 12/13/2022 at 10:28 AM [facility] HospitalAfrfbf96-47-1232 Note* Op Note - Ziggy Arauz MD - 12/25/2022 12:07 PM EDT OPERATIVE REPORT SURGEON: ZIGGY ARAUZ M.D. Procedures: Left leg venogram. Preoperative [...] and exchanged over a wire for a 8-Bulgarian sheath tjo the level of the right [...] transferred to recovery room in stable condition. ZIGGY ARAUZ MD [facility] HospitalYhoxcg73-36-8403 NoteH&P reviewed. The patient was examined and [...] current symptoms. He chooses to proceed as planned.[facility] 12-25-2022 NoteOPERATIVE REPORT SURGEON: ZIGGY ARAUZ M.D. Procedures: Left leg venogram. Preoperative [...] and exchanged over a wire for a 8-Bulgarian sheath tjo the level of the right [...] transferred to recovery room in stable condition. ZIGGY ARAUZ, [facility]10-31-2023 History and physical note* Ziggy Arauz MD - 12/25/2022 12:07 PM EDT [...] Source Note - Carissa Romero APRN - FARM EQUIPMENT SERVICE TECHNICIAN - 12/13/2022 10:00 AM EDT Images from the original note were not included. Comprehensive Pre Surgical History and Physical ? Name: Corrie Queen : 1960 (Age-62 y.o.) Date of Service: Pt seen/examined on 12/13/2022 Procedure Information Date/Time: 12/25/22 1030 Procedures: LEFT ILIOFEMORAL DEEP VEIN THROMBOSIS, THROMBECTOMY AND STENTING (Left) TRANSCATHETER PLACEMENT OF AN INTRAVASCULAR STENT(S), OPEN OR PERCUTANEOUS INITIAL VEIN (Left) Location: [facility] Operating Room Surgeons: Ziggy Arauz MD Chief Complaint: Chronic blood clot [...] who we are asked to see/evaluate by [place] [address] for pre-operative evaluation prior to . LEFT ILIOFEMORAL DEEP VEIN THROMBOSIS, THROMBECTOMY AND STENTING (Left) [73174 CPT(R)] TRANSCATHETER PLACEMENT OF AN INTRAVASCULAR STENT(S), OPEN OR PERCUTANEOUS INITIAL VEIN (Left) [50345 CPT(R)] Anesthesia type: General The patient is [...] deep vein thrombosis (DVT) of iliofemoral vein ([facility]) This is now a left iliofemoral chronic [...] office note 12/10/2022 ? Denies history of CO, CAD, CHF, TIA, CVA Past Medical History: Past Medical History: 09/15/2020: Abscess of scrotum Comment: Last Assessment & Plan: Urology office was contacted and I spoke to the nurse practitioner Farzana and she was going to see if they could rearrange some schedules to get him in [place]. She was going to call and talk with Corrie. 02/27/2022: Acute cystitis without hematuria No date: Anxiety Comment: patrick with surgery No date: Benign neoplasm of pituitary gland and craniopharyngeal duct (pouch) ([facility]) No date: Chest pain, unspecified 05/28/2022: Chills No date: Diverticulitis 2022: DVT (deep venous thrombosis) ([facility]) Comment: left leg No date: Esophageal reflux [...] hyperlipidemia No date: Other anterior pituitary disorders ([facility]) No date: Other testicular hypofunction No date: [...] CNP Date: 12/13/2022 at 10:28 AM * Ziggy Arauz MD - 12/25/2022 10:30 AM EDT H&P reviewed. The patient was examined and there are no changes to the H&P. Source Note - FELISHA Mack CNP - 12/13/2022 10:00 AM EDT Images from the original note were not included. Comprehensive Pre Surgical History and Physical ? Name: Corrie Queen : 1960 (Age-62 y.o.) Date of Service: Pt seen/examined on 12/13/2022 Procedure Information Date/Time: 12/25/22 1030 Procedures: LEFT ILIOFEMORAL DEEP VEIN THROMBOSIS, THROMBECTOMY AND STENTING (Left) TRANSCATHETER PLACEMENT OF AN INTRAVASCULAR STENT(S), OPEN OR PERCUTANEOUS INITIAL VEIN (Left) Location: [facility] Operating Room Surgeons: Ziggy Arauz MD Chief Complaint: Chronic blood clot [...] who we are asked to see/evaluate by [place] [address] for pre-operative evaluation prior to . LEFT ILIOFEMORAL DEEP VEIN THROMBOSIS, THROMBECTOMY AND STENTING (Left) [91689 CPT(R)] TRANSCATHETER PLACEMENT OF AN INTRAVASCULAR STENT(S), OPEN OR PERCUTANEOUS INITIAL VEIN (Left) [69254 CPT(R)] Anesthesia type: General The patient is [...] artery. He has been taken to the over the weekend and the swelling has improved but is still significant. He would like to see if there is any further treatment. He is retired but remains quite active.. 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 Denies history of CO, CAD, CHF, TIA, CVA Past Medical History: Past Medical History: 09/15/2020: Abscess of scrotum Comment: Last Assessment & Plan: Urology office was contacted and I spoke to the nurse practitioner Farzana and she was going to see if they could rearrange some schedules to get him in [place]. She was going to call and talk with Corrie. 02/27/2022: Acute cystitis without hematuria No date: Anxiety Comment: patrick with surgery No date: Benign neoplasm of pituitary gland and craniopharyngeal duct (pouch) ([facility]) No date: Chest pain, unspecified 05/28/2022: Chills No date: Diverticulitis 2022: DVT (deep venous thrombosis) ([facility]) Comment: left leg No date: Esophageal reflux [...] hyperlipidemia No date: Other anterior pituitary disorders ([facility]) No date: Other testicular hypofunction No date: [...] CNP Date: 12/13/2022 at 10:28 AM * Ziggy Arauz MD - 12/25/2022 10:30 AM EDT H&P reviewed. The patient was examined and there are no changes to the H&P. Source Note - FELISHA Mack CNP - 12/13/2022 10:00 AM EDT Images from the original note were not included. Comprehensive Pre Surgical History and Physical ? Name: Corrie Queen : 1960 (Age-62 y.o.) Date of Service: Pt seen/examined on 12/13/2022 Procedure Information Date/Time: 12/25/22 1030 Procedures: LEFT ILIOFEMORAL DEEP VEIN THROMBOSIS, THROMBECTOMY AND STENTING (Left) TRANSCATHETER PLACEMENT OF AN INTRAVASCULAR STENT(S), OPEN OR PERCUTANEOUS INITIAL VEIN (Left) Location: [facility] Operating Room Surgeons: Ziggy Arauz MD Chief Complaint: Chronic blood clot [...] appropriate) 5. Medical Clearance/Consult from Internal Medicine ([facility]) 6. Shower/Wash Order (for designated surgeries) 7. BEENA Screen and Sleep Clinic Referral (if appropriate) History Of Present Illness: 62 y.o. male who we are asked to see/evaluate by [place] [id number] for pre-operative evaluation prior to . LEFT ILIOFEMORAL DEEP VEIN THROMBOSIS, THROMBECTOMY AND STENTING (Left) [43430 CPT(R)] TRANSCATHETER PLACEMENT OF AN INTRAVASCULAR STENT(S), OPEN OR PERCUTANEOUS INITIAL VEIN (Left) [28953 CPT(R)] Anesthesia type: General The patient is [...] artery. He has been taken to the over the weekend and the swelling has improved but is still significant. He would like to see if there is any further treatment. He is retired but remains quite active.. 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 Denies history of CO, CAD, CHF, TIA, CVA Past Medical History: Past Medical History: 09/15/2020: Abscess of scrotum Comment: Last Assessment & Plan: Urology office was contacted and I spoke to the nurse practitioner Farzana and she was going to see if they could rearrange some schedules to get him in [place]. She was going to call and talk with Corrie. 02/27/2022: Acute cystitis without hematuria No date: Anxiety Comment: patrick with surgery No date: Benign neoplasm of pituitary gland and craniopharyngeal duct (pouch) ([facility]) No date: Chest pain, unspecified 05/28/2022: Chills No date: Diverticulitis 2022: DVT (deep venous thrombosis) ([facility]) Comment: left leg No date: Esophageal reflux [...] hyperlipidemia No date: Other anterior pituitary disorders ([facility]) No date: Other testicular hypofunction No date: [...] 12/13/2022 at 10:28 AM documented in this [facility]10-31-2023 Attending History and physical note* Ziggy Arauz MD - 12/25/2022 10:30 AM EDT H&P reviewed. The patient was examined and there are no changes to the H&P. Source Note - FELISHA Mack CNP - 12/13/2022 10:00 AM EDT Images from the original note were not included. Comprehensive Pre Surgical History and Physical ? Name: Corrie Queen : 1960 (Age-62 y.o.) Date of Service: Pt seen/examined on 12/13/2022 Procedure Information Date/Time: 12/25/22 1030 Procedures: LEFT ILIOFEMORAL DEEP VEIN THROMBOSIS, THROMBECTOMY AND STENTING (Left) TRANSCATHETER PLACEMENT OF AN INTRAVASCULAR STENT(S), OPEN OR PERCUTANEOUS INITIAL VEIN (Left) Location: [facility] Operating Room Surgeons: Ziggy Arauz MD Chief Complaint: Chronic blood clot [...] who we are asked to see/evaluate by [place] [id number] for pre-operative evaluation prior to . LEFT ILIOFEMORAL DEEP VEIN THROMBOSIS, THROMBECTOMY AND STENTING (Left) [73141 CPT(R)] TRANSCATHETER PLACEMENT OF AN INTRAVASCULAR STENT(S), OPEN OR PERCUTANEOUS INITIAL VEIN (Left) [12399 CPT(R)] Anesthesia type: General The patient is [...] artery. He has been taken to the over the weekend and the swelling has improved but is still significant. He would like to see if there is any further treatment. He is retired but remains quite active.. 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 Denies history of CO, CAD, CHF, TIA, CVA Past Medical History: Past Medical History: 09/15/2020: Abscess of scrotum Comment: Last Assessment & Plan: Urology office was contacted and I spoke to the nurse practitioner Farzana and she was going to see if they could rearrange some schedules to get him in [place]. She was going to call and talk with Corrie. 02/27/2022: Acute cystitis without hematuria No date: Anxiety Comment: patrick with surgery No date: Benign neoplasm of pituitary gland and craniopharyngeal duct (pouch) ([facility]) No date: Chest pain, unspecified 05/28/2022: Chills No date: Diverticulitis 2022: DVT (deep venous thrombosis) ([facility]) Comment: left leg No date: Esophageal reflux [...] hyperlipidemia No date: Other anterior pituitary disorders ([facility]) No date: Other testicular hypofunction No date: [...] Electronically signed by: Carissa Romero APRN - BHAVNA Date: 12/13/2022 at 10:28 AM [id number] NoteH&P reviewed. The patient was examined and there are no changes to the H&P.[facility]10-31-2023 NoteH&P reviewed. The patient was examined and there are no changes to the H&P.[facility] 12-22-2022 Hospital Discharge instructions* Discharge Instructions* Pacheco Negron MD - 12/22/2022 10:12 AM EDT Tylenol for pain. Call your PCP Sunday 12/24 for results from yesterday's urine culture. * Attachments The following attachments cannot be sent through Care Everywhere. * Flank Pain ED ([facility]) documented in this [facility]10-28-2023 Emergency department Note* Estefany Dunlap RN - 12/22/2022 8:[address] Negron the pt was prescribed Cipro yesterday by Dr. Basilio. Pt had not previously mentioned this to ED providers. Dr. Negron at bedside again speaking with pt. Estefany Dunlap RN 12/22/22 0857 [facility] HospitalQrqsje75-40-0394 Emergency department Note* Estefany Dunlap RN - [...] PerEPIC the pt placed calls to the office/[facility] stating he needed IV abx specifically but was advised this is not indicated for negative UA. He then saw Dr. Basilio in [place] yesterday and had another UA as well [...] AM EDT EMERGENCY DEPARTMENT ENCOUNTER Pt Name: Corrie Queen Birthdate 1960 Date of evaluation: 12/22/2022 ED Provider: Pacheco Negron MD CHIEF COMPLAINT Chief Complaint Patient presents with Difficulty Urinating Flank Pain History from patient and daughter HISTORY OF PRESENT ILLNESS (Location/Symptom, Timing/Onset, Context/Setting, Quality, Duration, Modifying Factors, Severity) Note limiting factors. I wore appropriate PPE for the entirety of this encounter. HPI Corrie Queen is a 62 y.o. who presents to the emergency department complaining of right flank pain. Began 5 days ago. Dull mild aching pain. Saw his PCP and had negative urinalysis in the office. Saw PCP yesterday and had ultrasound KUB urinalysis and culture. Urinalysis negative culture pending KUB and ultrasound unremarkable per [facility]. Patient is concerned that he has a [...] rearrange some schedules to get him in [place]. She was going to call and talk with Corrie. Acute cystitis without hematuria 02/27/2022 Anxiety patrick with surgery Benign neoplasm of pituitary gland and craniopharyngeal duct (pouch) ([facility]) Chest pain, unspecified Chills 05/28/2022 Chronic flank pain Chronic pain Diverticulitis DVT (deep venous thrombosis) ([facility]) 2022 left leg Esophageal reflux Essential hypertension, [...] CABERGOLINE (DOSTINEX) 0.5 MG TABLET take 1 2 tablet by mouth ON SATURDAY AND SATURDAY [...] Culture. Procedure Abnormality Status --------- ------ Complete Urinalysis[[id number]] Normal Final result Please view results for [...] determinants of health affecting care: Distrust of [facility] and his PCP ED Medications managed: Pain [...] AM PATIENT REFERRED TO: Cheryl Basilio MD [address] [place] [address] [address] [place] [address] In 2 days DISCHARGE MEDICATIONS: New Prescriptions [...] Negron MD 12/22/22 1251 documented in this [facility]10-28-2023 Emergency department Note* Estefany Dunlap RN - 12/22/2022 8:38 AM EDT ED medic to room to start IV/obtain labs per orders after physician spoke with pt at length about plan of care. Pt questioning medic why we are doing bloodwork and wants to speak with Dr. Negron again. Dr. Negron back to room. Estefany Dunlap RN 12/22/22 0841 [facility] HospitalXiyjej04-00-0673 NoteED medic to room to start IV/obtain labs per orders after physician spoke with pt at length about plan of care. Pt questioning medic why we are doing bloodwork and wants to speak with Dr. Negron again. Dr. Negron back to room. Estefany Dunlap RN 12/22/22 0841[facility]10-28-2023 Emergency department Triage note * Estefany [...] PerEPIC the pt placed calls to the office/[facility] stating he needed IV abx specifically but was advised this is not indicated for negative UA. He then saw Dr. Basilio in [place] yesterday and had another UA as well [...] of distress noted. Pt negative/irritable during triage. [facility] [id number] Physician Emergency department Note* Pacheco Negron MD - 12/22/2022 7:57 AM EDT EMERGENCY DEPARTMENT ENCOUNTER Pt Name: Corrie Queen Birthdate 1960 Date of evaluation: 12/22/2022 ED Provider: Pacheco Negron MD CHIEF COMPLAINT Chief Complaint Patient presents with Difficulty Urinating Flank Pain History from patient and daughter HISTORY OF PRESENT ILLNESS (Location/Symptom, Timing/Onset, Context/Setting, Quality, Duration, Modifying Factors, Severity) Note limiting factors. I wore appropriate PPE for the entirety of this encounter. HPI Corrie Queen is a 62 y.o. who presents [...] rearrange some schedules to get him in [place]. She was going to call and talk with Corrie. Acute cystitis without hematuria 02/27/2022 Anxiety patrick with surgery Benign neoplasm of pituitary gland and craniopharyngeal duct (pouch) ([facility]) Chest pain, unspecified Chills 05/28/2022 Chronic flank pain Chronic pain Diverticulitis DVT (deep venous thrombosis) ([facility]) 2022 left leg Esophageal reflux Essential hypertension, [...] and unspecified hyperlipidemia Other anterior pituitary disorders ([facility]) Other testicular hypofunction Pituitary tumor Pyelonephritis 12/03/2021 [...] Culture. Procedure Abnormality Status --------- ------ Complete Urinalysis[[id number]] Normal Final result Please view results for [...] determinants of health affecting care: Distrust of [facility] and his PCP ED Medications managed: Pain [...] AM PATIENT REFERRED TO: Cheryl Basilio MD [address] [place] [address] [address] [place] [address] In 2 days DISCHARGE MEDICATIONS: New Prescriptions [...] Medicine Provider Pacheco Negron MD 12/22/22 1251 [facility] HospitalYmnynk58-11-1112 Telephone encounter Note* Telephone Encounter - Farzana Samaniego RN - 12/22/2022 7:08 AM EDT S: Patient spoke with [facility] nurse regarding flank pain B: Onset of [...] Was seen at beginning of the weekin [place]. Urine was negative at that time. Was [...] Patient verbalizes understanding. States will go to [place] ED because has not had luck at [place]. Instructed to call back with any further questions or concerns. Reason for Disposition [1] Abdominal pain AND [2] age > 60 years Protocols used: Flank Mmuq-EMIHQ-BH [employer] [id number] Miscellaneous Notes* Telephone Encounter - Farzana Samaniego RN - 12/22/2022 7:08 AM EDT S: Patient spoke with [facility] nurse regarding flank pain B: Onset of [...] Was seen at beginning of the weekin [place]. Urine was negative at that time. Was [...] Patient verbalizes understanding. States will go to [place] ED because has not had luck at [place]. Instructed to call back with any further questions or concerns. Reason for Disposition [1] Abdominal pain AND [2] age > 60 years Protocols used: Flank Mmwo-BDBFN-QM documented in this encounterSPremier Health [facility] [id number] Telephone encounter Note* Telephone Encounter - Tayler Simpson MA - 12/18/2022 8:40 AM EDT Mychart message sent [facility] HospitalSquqsy44-56-2929 Miscellaneous Notes* Telephone Encounter - Tayler Simpson MA - 12/18/2022 8:40 AM EDT Mychart message sent * Telephone Encounter - Cheryl Baislio MD - 12/18/2022 7:33 AM EDT Please [...] MA - 12/17/2022 9:13 AM EDT Notified Corrie. * Telephone Encounter - Leanne Perales MD - 12/17/2022 9:11 AM EDT [...] need to get him in with urology [facility] after his surgery. UA results on your [...] having fixed before then. documented in this encounterSPremier Health [facility] Hospital NorthSullcs82-93-5502 Telephone encounter Note* Telephone Encounter - Cheryl Basilio MD - 12/18/2022 7:33 AM EDT Please schedule visit to discuss. Thanks [facility] [id number] Telephone encounter Note* Telephone Encounter - Dat [...] call back with new or worsening symptoms. [facility] HospitalUlqdge55-01-3054 Miscellaneous Notes* Telephone Encounter - Dat Talbot [...] MA - 12/17/2022 9:13 AM EDT Notified Corrie. * Telephone Encounter - Leanne Perales MD - 12/17/2022 9:11 AM EDT [...] need to get him in with urology [facility] after his surgery. UA results on your [...] having fixed before then. documented in this [facility]10-23-2023 Telephone encounter Note* Telephone Encounter - Dat Talbot RN - 12/17/2022 2:57 PM EDT . Reason for Disposition MODERATE pain (e.g., interferes with normal activities or awakens from sleep) Protocols used: Flank Tprj-KGKLL-HR [facility] [id number] Miscellaneous Notes* Telephone Encounter - Dat Talbot RN - 12/17/2022 2:57 PM EDT . Reason for Disposition MODERATE pain (e.g., interferes with normal activities or awakens from sleep) Protocols used: Flank Lkzj-XBJHG-QN documented in this [facility]10-23-2023 Telephone encounter Note* Telephone Encounter - Mary Garcia MA - 12/17/2022 9:13 AM EDT Vikki York. [facility] HospitalNqhgby43-22-0882 Telephone encounter Note* Telephone Encounter - Leanne Perales MD - 12/17/2022 9:11 AM EDT Urine is completely clear, there is no blood or white blood cells in his urine I am not sure why heis having his pain. This does not look like any type of urinary tract infection. To see urology if he continues to have problems, I have nothing else to offer him at this time. [id number] Telephone encounter Note* Telephone Encounter - Mary Garcia MA - 12/17/2022 8:02 AM EDT Pt reported that he was scheduled with urology last week but missed the appointment d/t needing to be seen for the blood clot. Advised him we need to get him in with urology [facility] after his surgery. UA results on your desk and order pended. [facility] CenterVelostackYfqctb39-26-4496 Telephone encounter Note* Telephone Encounter - Sierra [...] issue he is having fixed before then. [id number] NotePatient: Corrie Queen Procedure Information Date/Time: 12/25/22 1030 Procedures: LEFT ILIOFEMORAL DEEP VEIN THROMBOSIS, THROMBECTOMY AND STENTING (Left) TRANSCATHETER PLACEMENT OF AN INTRAVASCULAR STENT(S), OPEN OR PERCUTANEOUS INITIAL VEIN (Left) Location: [facility] Operating Room Surgeons: Ziggy Arauz MD Past Medical History: Past Medical History: 09/15/2020: Abscess of scrotum Comment: Last Assessment & Plan: Urology office was contacted and I spoke to the nurse practitioner Farzana and she was going to see if they could rearrange some schedules to get him in [place]. She was going to call and talk with Corrie. 02/27/2022: Acute cystitis without hematuria No date: Anxiety Comment: patrick with surgery No date: Benign neoplasm of pituitary gland and craniopharyngeal duct (pouch) ([facility]) No date: Chest pain, unspecified 05/28/2022: Chills No date: Diverticulitis 2022: DVT (deep venous thrombosis) ([facility]) Comment: left leg No date: Esophageal reflux [...] hyperlipidemia No date: Other anterior pituitary disorders ([facility]) No date: Other testicular hypofunction No date: [...] SCAN (Final) Narrative Ordered by an unspecified provider.[facility]10-19-2023 Note Comprehensive Pre Surgical History and Physical ? Name: Corrie Queen : 1960 (Age-62 y.o.) Date of Service: Pt seen/examined on 12/13/2022 Procedure Information Date/Time: 12/25/22 1030 Procedures: LEFT ILIOFEMORAL DEEP VEIN THROMBOSIS, THROMBECTOMY AND STENTING (Left) TRANSCATHETER PLACEMENT OF AN INTRAVASCULAR STENT(S), OPEN OR PERCUTANEOUS INITIAL VEIN (Left) Location: [facility] Operating Room Surgeons: Ziggy Arauz MD Chief Complaint: Chronic blood clot [...] who we are asked to see/evaluate by [place] [address] for pre-operative evaluation prior to . LEFT ILIOFEMORAL DEEP VEIN THROMBOSIS, THROMBECTOMY AND STENTING (Left) [68204 CPT(R)] TRANSCATHETER PLACEMENT OF AN INTRAVASCULAR STENT(S), OPEN OR PERCUTANEOUS INITIAL VEIN (Left) [84974 CPT(R)] Anesthesia type: General The patient is [...] for attempted left lois (more content not included)...[facility]10-19-2023 Note Comprehensive Pre Surgical History and Physical ? Name: Corrie Queen : 1960 (Age-62 y.o.) Date of Service: Pt seen/examined on 12/13/2022 Procedure Information Date/Time: 12/25/22 1030 Procedures: LEFT ILIOFEMORAL DEEP VEIN THROMBOSIS, THROMBECTOMY AND STENTING (Left) TRANSCATHETER PLACEMENT OF AN INTRAVASCULAR STENT(S), OPEN OR PERCUTANEOUS INITIAL VEIN (Left) Location: [facility] Operating Room Surgeons: Ziggy Arauz MD Chief Complaint: Chronic blood clot [...] who we are asked to see/evaluate by CAMI Rajan for pre-operative evaluation prior to . LEFT ILIOFEMORAL DEEP VEIN THROMBOSIS, THROMBECTOMY AND STENTING (Left) [01759 CPT(R)] TRANSCATHETER PLACEMENT OF AN INTRAVASCULAR STENT(S), OPEN OR PERCUTANEOUS INITIAL VEIN (Left) [94836 CPT(R)] Anesthesia type: General The patient is [...] for attempted left lois (more content not included)...[facility]10-13-2023 Hospital Discharge instructions* Discharge Instructions* Kendra [...] (Blood Clots in the Legs) Discharge Instructions (Cymro) documented in this encounterSumma Ignyqt12-14-2281 Emergency department Note* Lorena Castillo RN - 12/07/2022 2:23 PM EDT Surgery resident at bedside. Lorena Castillo RN 12/07/22 1423 [facility] HospitalUpwszk47-91-3889 Emergency department Note* Lorena Castillo RN - 12/07/2022 2:23 PM EDT Surgery resident at bedside. Lorena Castillo RN 12/07/22 1423 * Lorena Castillo RN - 12/07/2022 1:33 PM EDT Vascular at bedside. Lorena Castillo RN 12/07/22 1333 * Lorena Castillo RN - 12/07/2022 1:18 PM EDT Pt ambulated to restroom with steady and even gait. Lorena Castillo RN 12/07/22 1319 * Lorena Castillo RN - 12/07/2022 1:11 PM EDT Report from GARY Becerril. Lorena Castillo RN 12/07/22 1311 * Yolanda Patel DO - 12/07/2022 9:15 AM EDT Emergency Department Encounter [facility] EMERGENCY DEPT Patient: Corrie Queen : 1960 Date of Evaluation: 12/07/2022 ED Supervising Physician: Yolanda Patel DO I independently examined and evaluated Corrie Queen. This will serve as my Supervisory note and shared attestation. I did perform a substantive portion of the visit including all aspects of the Medical Decision Making. I wore appropriate PPE for the entirety of this encounter. In brief, Corrie Queen is a 62 y.o. that presents [...] Munira Mcgregor RN 12/07/22930 documented in this [facility]10-13-2023 NoteVascular Surgery Consultation Note Reason for Consult: LLE DVT HISTORY OF PRESENT ILLNESS: The patient is a 62 y.o. male with past medical history of pituitary gland tumor, who presents to [facility] for an ongoing LLE DVT. Vascular surgery [...] a dose. Patient reports he was in [place] on 12/04 when he experienced an exacerbation [...] for Saturday 2:15pm with Dr Arauz in [place] for possible discussion about thrombectomy Past Medical History: Diagnosis Date Abscess of scrotum 09/15/2020 Last Assessment & Plan: Urology office was contacted and I spoke to the nurse practitioner Farzana and she was going to see if they could rearrange some schedules to get him in [place]. She was going to call and talk with Corrie. Acute cystitis without hematuria 02/27/2022 Benign neoplasm [...] Housing Stability: Unknown (09/25 (more content not included)...[facility] Emergency department Note* Lorena Castillo RN - 12/07/2022 1:33 PM EDT Vascular at bedside. Lorena Castillo RN 12/07/22 1333 [address]Wagish53-73-2524 Emergency department Note* Lorena Castillo RN - 12/07/2022 1:18 PM EDT Pt ambulated to restroom with steady and even gait. Lorena Castillo RN 12/07/22 1319 [address]Gbqeul65-86-1801 Emergency department Note* Lorena Castillo RN - 12/07/2022 1:11 PM EDT Report from GRAY Becerril. Lorena Castillo RN 12/07/22 1311 [address]Hptjys95-69-6984 Emergency department Note* Munira Mcgregor RN - 12/07/2022 9:15 AM EDT Bed: 06 Expected date: Expected time: Means of arrival: Comments: Triage Munira Mcgregor RN 12/07/22 0931 [facility]Qzdphv74-04-8189 Physician Emergency department Note* Yolanda Patel DO - 12/07/2022 9:15 AM EDT Emergency Department Encounter [facility] EMERGENCY DEPT Patient: Corrie Queen : 1960 Date of Evaluation: 12/07/2022 ED Supervising Physician: Yolanda Patel DO I independently examined and evaluated Corrie Queen. This will serve as my Supervisory note and shared attestation. I did perform a substantive portion of the visit including all aspects of the Medical Decision Making. I wore appropriate PPE for the entirety of this encounter. In brief, Corrie Queen is a 62 y.o. that presents [...] [employer] Yolanda Patel DO 12/07/22 180 [facility] CenterHot[facility] Phone: 1(259) 954-810209-21-2023 History of Present illness Narrative* Cheryl Basilio MD - 11/15/2022 2:51 PM EDT Lasix documented in this [facility]09-21-2023 Telephone encounter Note* Telephone Encounter - [...] one leg Protocols used: Leg Swelling and Micfo-UYOED-UQ [facility] [id number] Telephone encounter Note* Telephone Encounter - Arjun Velarde MA - 11/15/2022 2:10 PM EDT Duplicate message, there is already 2 other encounters in regards to this. Pt will get results oncethey are reviewed by provider. [facility] [id number] Miscellaneous Notes* Telephone Encounter - Farzana Samaniego RN - 11/15/2022 2:10 PM EDT S: Patient spoke with [facility] nurse regarding splotches on left leg and [...] one leg Protocols used: Leg Swelling and Eprcf-HVSFC-YW * Telephone Encounter - Arjun Velarde MA [...] Protocols used: Information Only Call - No Ldffyo-LPLGB-KM documented in this encounterSPremier Health [facility] Hospital NorthGhfplc93-31-8869 Telephone encounter Note* Telephone Encounter - Farzana Samaniego RN - 11/15/2022 2:09 PM EDT Duplicate call Reason for Disposition Caller has already spoken with another triager and has no further questions Protocols used: No Contact or Duplicate Contact [employer] [facility] HospitalZzdceb05-21-2672 Miscellaneous Notes* Telephone Encounter - Farzana Samaniego RN - 11/15/2022 2:09 PM EDT Duplicate call Reason for Disposition Caller has already spoken with another triager and has no further questions Protocols used: No Contact or Duplicate Contact Sozz-YMZUM-ML documented in this [facility]09-21-[facility]23 Telephone encounter Note* Telephone Encounter - [...] Protocols used: Information Only Call - No Oxfqwl-[id number] [facility] HospitalLstczf28-56-5959 Miscellaneous Notes* Telephone Encounter - Shannan Rodriguez - 11/15/2022 10:19 AM EDT Name of caller: Corrie Contact phone number: [phone] Relationship to Patient: patient Provider: Kj Practice: [facility] Chief Complaint/Reason for Call: Patient called to find out the results of the US he had done yesterday. He would like someone to call him back to go over the results with him. Please advise Best time of day caller can be reached: any Patient advised that office/PCP has 24-48 business hours to return their call: Yes documented in this [place] [id number] Telephone encounter Note* Telephone Encounter - Shannan Rodriguez - 11/15/2022 10:19 AM EDT Name of caller: Corrie Contact phone number: [phone] Relationship to Patient: patient Provider: Kj Practice: [facility] Chief Complaint/Reason for Call: Patient called to find out the results of the US he had done yesterday. He would like someone to call him back to go over the results with him. Please advise Best time of day caller can be reached: any Patient advised that office/PCP has 24-48 business hours to return their call: Yes [facility] HospitalEbtchm30-50-3451 Telephone encounter Note* Telephone Encounter - Nubia Gallo RN - 11/14/2022 5:14 PM EDT S: Patient spoke with [facility] nurse regarding vascular US results. B: Onset [...] call back with new or worsening symptoms. [facility] HospitalNjgdrx82-66-9878 Miscellaneous Notes* Telephone Encounter - Nubia Gallo RN - 11/14/2022 5:14 PM EDT S: Patient spoke with [facility] nurse regarding vascular US results. B: Onset [...] 12:58 PM EDT S: Patient spoke with [facility] nurse regarding question if he should be [...] Protocols used: Information Only Call - No Mmioaz-DNXBJ-LJ documented in this encounterSPremier Health [facility] NorthYejhrk04-10-9270 Telephone encounter Note* Telephone Encounter - Natacha [...] Protocols used: Information Only Call - No Dqpchr-KGDRN-JK [facility] HospitalTnlsdl87-92-5058 History of Present illness Narrative* Cheryl Basilio MD - 11/14/2022 11:00 AM EDT Images from the original note were not included. [facility] [address] [facility] [address] Dept: [phone] Dept Loc: [phone] Visit type: Established patient Reason for Visit: [...] rearrange some schedules to get him in [place]. She was going to call and talk with Corrie. Acute cystitis without hematuria 02/27/2022 Benign neoplasm [...] alert. Cheryl Basilio MD documented in this [facility]09-20-2023 Instructions* Patient Instructions* Cheryl Basilio MD - 11/14/2022 11:00 AM EDT The number for [facility] Central Scheduling is [phone]. documented in this [facility]09-19-2023 Telephone encounter Note* Telephone Encounter - Khalida Currie RN - 11/13/2022 10:35 AM EDT S: Patient spoke with [facility] nurse regarding swelling in left leg still - blood clot. B: Onset of symptoms/concern ongoing since beginning september. A: Pt states he was diagnosed with [...] period? N/A Protocols used: Leg Swelling and Hivel-HXBQM-TP [facility] HospitalSehdgp28-00-1128 Miscellaneous Notes* Telephone Encounter - Khalida Currie RN - 11/13/2022 10:35 AM EDT S: Patient spoke with [facility] nurse regarding swelling in left leg still [...] period? N/A Protocols used: Leg Swelling and Xghxb-LZLBH-IH documented in this encounterSPremier Health [facility] Hospital NorthAyxlwh44-74-1361 Telephone encounter Note* Telephone Encounter - Cheryl Basilio MD - 10/31/2022 9:28 PM EDT Ordered. Thanks [facility] HospitalFavjek73-45-5944 Miscellaneous Notes* Telephone Encounter - Cheryl Basilio MD - 10/31/2022 9:28 PM EDT Ordered. Thanks * Telephone Encounter - Mitzy Velez - 10/31/2022 10:54 AM EDT Ordering provider: Dr. Basilio Date of last office visit: 10/24/22 Date of next office visit: N/A Updated/Validated preferred pharmacy: Yes [id number] [phone] Patient instructed to contact the pharmacy prior [...] tab): 08/22/22 last written documented in this [facility]09-06-2023 Telephone encounter Note* Telephone Encounter - Mitzy Velez - 10/31/2022 10:54 AM EDT Ordering provider: Dr. Basilio Date of last office visit: 10/24/22 Date of next office visit: N/A Updated/Validated preferred pharmacy: Yes [id number] [phone] Patient instructed to contact the pharmacy prior [...] oral (PO) Medication administration time(s): take 1 2 tablet by mouth ON SATURDAY AND SATURDAY If taking medication PRN, reason for taking medication: N/A If this is a controlled substance do you receive this or any other controlled medication from any other doctor or facility: N/A Date of last refill (see medication tab): 08/22/22 last written [place] [id number] Miscellaneous Notes* Care Coordination - Unknown Case Management - 10/16/2022 4:01 PM EDT Patient Choice Patient Name: CORRIE QUEEN Date of : 1960 All Providers Sent Referral Name: [facility]ician [facility] Address: [facility] Anali Willis, [address] [address] Name: [facility] Address: [address] [place] [id number] Name: [facility] Phone: [phone] Address: [address] [place] [address] [address] [place] [id number] Name: [facility] Phone: [phone] Address: [address] [place] [address] Name: [facility] Phone: [phone] Address: [address] [place] [address] Name: [facility] Phone: [phone] Address: [address] [place] [address] Name: [facility] Phone: [phone] Address: [address] [place] [address] Name: Replaced By [facility] (All Offices) Phone: [phone] Address: [address] [place] [address] Name: [facility] Phone: [phone] Address: [address] [place] [address] Name: [facility] Phone: [phone] Address: [address] [facility] [address] [place] [address] Name: [facility] Phone: [phone] Address: [facility] [place] [address] [facility]: [facility] Phone: [phone] Address: [address] [place] [address] Name: [facility] Phone: [phone] Address: [address] [place] [address] * Home Care - Brian Chanel RN [...] service location. Referrals [facility] been [facility] via [facility] Liaison to discuss available agencies to accept case with patient upon receiving responses. * Care Coordination - Natacha Deluna RN - 10/16/2022 11:52 AM EDT Did update patient that had spoken with Tayler at Dr. Basilio's office and she is [...] devices required. * Care Coordination - Natacha eDluna RN - 10/16/2022 6:45 AM EDT Images from the original note were not included. Care Management Progress Note Spoke with [facility] yesterday afternoon. They are unable to obtain PA for med due to patient not being cardiology patient. Did call and speak with Tayler at Dr. Basilio's office. She will submit [...] 3-7. Tentative discharge home vs home with [facility] when medically stable. Will monitor therapy evals for equipment and therapy needs at discharge. Discharge Milestones and Delays Expected Date/Time: 10/15/[address] discharge order Complete med reconciliation Case mgmt discharge readiness Clinical Stability Diagnsotic Workup Expected Discharge History Expected Date/Time Set By Reviewed At 10/15/2022 LEIGH Goldstein 10/15/2022 9:55 AM 10/14/2022 Ntaacha Frankel DO 10/12/2022 10:32 PM 10/14/2022 Natacha [...] Did call and speak with Xiomara from [facility] specialty pharmacy and requested that PA be initiated onxarelto. She will contact [facility] once obtained. Updated attending of this. * Care Coordination - Natacha Deluna RN - 10/15/2022 9:34 AM EDT Per meds to beds xarelto will require PA [id number] 001 [id number]. * Care Coordination - Natacha Deluna RN - 10/15/2022 6:33 AM EDT Images from the original note were not included. Care Management Progress Note Family picked up first 30 days worth of xarelto from [facility] in [place](free with coupon). Awaiting call from meds to [...] new script for 30 day supply to [facility] in [place]. Called and spoke with pharmacist at [facility] and 30 day script has already been [...] RN - 10/13/2022 3:56 PM EDT Called [facility] in [place]. Xarelto script does require PA. Had pharmacist run without insurance and only use FREE 30 day copay card and was able to go through with no cost. Returned to patient's room. Met with he and his daughter Isa. Apologized for earlier misunderstanding. Explained thathad spoken to [facility] in [place] and his xarelto had gone through with [...] Patient and daughter requesting to speak with supervisor litharge about separate incident. 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 Discharge plan is home when medically stable. * Care Coordination - Natacha Deluna RN - 10/13/2022 3:50 PM EDT Care Managment Initial Assessment Date: 10/13/2022 Patient Name: Corrie Queen : 1960 Patient Information Source of Information: Patient Name/Contact Information: ISA HENSLEY [phone] DAUGHTER MAURY QUEEN DAUGHTER [phone] Cognition/Language: WFL - Within Functional Limits Permission given to speak with patient treasury representative/caregiver as indicated: Yes Confirmation of Payer with patient/family: Yes Payer Name: MMO [place]: No Confirmation of Primary Care Physician: Confirmed [...] Daily Living Prescription Coverage: Yes Pharmacy Used: [facility] Medication Management: Independent Transportation/Shopping: Independent Transportation Mode: [...] consulted. Daily labs. Spoke with attending via [email or web address] chat and wanted to know costs of [...] stated we were no different here from [facility] and he wanted to speak with the [...] today for complete details. documented in this [facility]08-22-2023 Note* Care Coordination - Unknown Case Management - 10/16/2022 4:01 PM EDT Patient Choice Patient Name: CORRIE QUEEN Date of : 1960 All Providers Sent Referral Name: [facility] Address: [address]ali Willis, [address] [address] Name: [facility] Address: [address] [place] [address] Name: [facility] Phone: [phone] Address: [address] [place] [address] [address] [place] [address] Name: [facility] Phone: [phone] Address: [address] [place] [address] Name: [facility] Phone: [phone] Address: [address] [place] [address] Name: [facility] Phone: [phone] Address: [address] [place] [address] Name: [facility] Phone: [phone] Address: [address] [place] [address] Name: [facility] [place] (All Offices) Phone: [phone] Address: [address] [address] Name: [facility] Phone: [phone] Address: [address] [place] [address] Name: [facility] Phone: [phone] Address: [address] [address] Name: [facility] Phone: [phone] Address: [address] [place] [address] Name: [facility] Centralized Intake Phone: [phone] Address: [address] [place] [address] Name: [facility] Phone: [phone] Address: [address] [address] [facility] HospitalJjsgou90-45-5114 Note* Home Care - Brian Chanel RN - 10/16/2022 4:01 PM EDT Discussed with patient the accepting agencies for home care. The patient states that he was given aprescription from the pharmacy for insulin and is so upset right now that he doesn't even want the home care any longer. Notified the agencies. Referral is close out. Home care to sign off. [place] [id number] Note* Care Coordination - Unknown Case Management - 10/16/2022 4:01 PM EDT Patient Choice Patient Name: CORRIE QUEEN Date of : 1960 All Providers Sent Referral Name: [facility] Address: [address] [place], [place] [address] [address], [place] [address] Name: [facility] Address: [address] [place] [address] Name: [facility] Phone: [phone] Address: [address] [place] [address] [address] [place] [address] Name: [facility] Phone: [phone] Address: [address] [place] [address] Name: [facility] Phone: [phone] Address: [address] [place] [address] Name: [facility] Phone: [phone] Address: [address] [place] [address] Name: [facility] Phone: [phone] Address: [address] [place] [address] Name: [facility] (All Offices) Phone: [phone] Address: [address] [place] [address] Name: [facility] Phone: [phone] Address: [address] [place] [address] Name: [facility] Phone: [phone] Address: [address] [facility] [address] [place] [address] Name: [facility] Phone: [phone] Address: [facility] [place] [address] Name: [facility] Phone: [phone] Address: [address] [place] [address] Name: [facility] Phone: [phone] Address: [address] [place] [address] [place] [id number] Note* Home Care - Brian Chanel RN - 10/16/2022 4:01 PM EDT Discussed with patient the accepting agencies for home care. The patient states that he was given aprescription from the pharmacy for insulin and is so upset right now that he doesn't even want the home care any longer. Notified the agencies. Referral is close out. Home care to sign off. [facility] HospitalDbqoiw09-55-5562 Nurse Note* Nasra Bass RN - 10/16/2022 3:31 PM EDT Discharge instructions reviewed with patient. New prescriptions, follow up appointments and signs and symptoms also reviewed. Patient ambulated from unit with a friend. Patient to slat pickler prescriptions at hospital pharmacy. [facility] HospitalAxfyzt52-68-0769 Nurse Note* Nasra Bass RN - 10/16/2022 3:31 PM EDT Discharge instructions reviewed with patient. New prescriptions, follow up appointments and signs and symptoms also reviewed. Patient ambulated from unit with a friend. Patient to slat pickler prescriptions at hospital pharmacy. documented in this [facility]08-22-2023 Hospital Discharge instructions* Discharge Instr - Activity* Nasra Bass RN - 10/16/2022 3:21 PM EDT As tolerated * Appointments* Natacha Deluna RN - 10/16/2022 6:58 AM EDT CONTROLS ENGINEER SPOKE WITH TAYLER AT DR. BASILIO'S OFFICE ABOUT PRIOR AUTHORIZATION NEEDED FOR YOUR REFILLS FOR XARELTO. SHE WILL INITIATE THIS. SHE WILL CONTACT YOU IF THERE ARE ANY PROBLEMS. * Attachments The following attachments cannot be sent through Care Everywhere. * Deep Vein Thrombosis (Blood Clots in the Legs) Discharge Instructions (Cymro) * Going Home on Blood Thinners (Cymro) documented in this [facility]08-22-2023 Note* Home Care - Brian Chanel [...] accept case with patient upon receiving responses. [facility] HospitalXhlbvw15-91-7040 Note* Home Care - Brian Chanel RN [...] accept case with patient upon receiving responses. [facility] HospitalHcjyrr80-34-6001 Hospital course Narrative* Tamara Turcios MD - 10/16/2022 2:01 PM EDT Discharge Summary Corrie Queen : 1960 ADMIT DATE: 10/12/2022 DISCHARGE DATE: 10/16/2022 PRIMARY CARE PHYSICIAN: Cheryl Basilio VISIT STATUS: Admission CODE STATUS: Full Code DISCHARGE DIAGNOSES: Principal Problem: Acute deep vein thrombosis (DVT) of left lower extremity, unspecified vein (HCC) LLE DVT-extensive EARLY/blurry vision constipation Hypercalcemia resolved HTN Hypothyroidism GERD BPH with urinary retention/obstruction CECILIA resolved HOSPITAL COURSE: Corrie is a 62 year old male, who [...] Your Medications These medications were sent to [facility] [address] [place] [address], [facility] [address] Hours: Saturday to Saturday 10 am to 6 pm polyethylene glycol (PEG) 3350 17 g packet rivaroxaban 20 MG tablet senna-docusate sodium 8.6-50 MG tablet tamsulosin 0.4 MG 24 hr capsule DIET: Adult diet Regular ACTIVITY: No restriction. COMPLEXITY OF FOLLOW UP: [x] Moderate Complexity: follow up within 7-14 calendar days ([address]) [] Severe Complexity: follow up within 7 calendar days ([address]) FOLLOW UP TESTING, PENDING RESULTS OR REFERRALS AT TRANSITIONAL CARE VISIT: [] Yes [x] No PENDING STUDIES: none DISPOSITION: Home FACILITY/HOME CARE AGENCY NAME: Follow up with Cheryl Basilio MD [address] [facility] [address] [facility] [address] Schedule an appointment as soon as [...] MD 10/16/2022, 2:01 PM documented in this [facility]08-22-2023 History of Present illness Narrative* Tamara Turcios MD - 10/16/2022 12:07 PM EDT Images from the original note were not included. Hospitalist Progress Note 10/16/[id number]: Please secure chat me on patient care issues. [phone]: Please secure chat [facility] Hospitalist for any issues. Subjective: Admit Date: 10/12/2022 PCP: Cheryl Basilio MD Room#: B4-821/B4-217 A CHIEF COMPLAINT: DVT left LLE Interval History: No overnight issues. Denies chest pain, sob, abdominal pain, nausea, vomiting, diarrhea, constipation, fevers, or chills. Adult diet Regular @QYZK2OYUHYE@ 24HR INTAKE/OUTPUT: No intake or output data in the 24 hours ending 10/16/22 1207 Past Medical History: Past Medical History: Diagnosis Date Abscess of scrotum 09/15/2020 Last Assessment & Plan: Urology office was contacted and I spoke to the nurse practitioner Farzana and she was going to see if they could rearrange some schedules to get him in [place]. She was going to call and talk with Corrie. Acute cystitis without hematuria 02/27/2022 Benign neoplasm [...] loss Unspecified hypothyroidism LABS: CBC: Recent Labs 10/14/2232610/15/2215810/16/22211 WBC 8.2 8.8 8.0 RBC 4.08* 4.32* 4.36* HGB 12.7* 13.3 13.5 HCT 37.0* 38.8* 39.0* MCV 90.9 89.9 89.6 RDW 13.4 13.2 13.0 PLT 255 272 277 BMP: Recent Labs 10/14/2232610/15/2215810/16/22211 NA 138 137 135 K 4.4 4.1 3.9 CL 105 104 104 CO2 26 26 24 BUN 17 16 15 CREATININE 1.15 1.06 1.03 GLUCOSE 90 105* 95 CALCIUM 9.9 9.8 9.9 ANIONGAP 8 8 7 LIVER PROFILE: Recent Labs 10/14/2232610/15/2215810/16/22211 AST 18 19 20 ALT 11 11 [...] with urinary retention/obstruction CECILIA resolved Interval History Corrie is a 62 year old male, who [...] Emergency Contact: Maury Queen Mobile Relation: Child Head Of Talent Management needed? No Secondary Emergency Contact: Isa Jiang Mobile Relation: Other Tamara Turcios MD Division of Hospitalist Medicine [employer] [facility] PAGER: Epic chat * Percy De La Rosa, PT - 10/16/2022 9:52 AM EDT Physical Therapy Facility/Department: [facility] Physical Therapy Initial Evaluation NAME: Corrie Queen : 1960 Date of Service: 10/16/2022 [...] no LOB or safety concerns. He demo hnas cute therapy needs, rec home INDwith OPPT if pain or weakness noted upon home going, handout given Performance Deficits/Impairments: Increased pain Decision Making: Medium Complexity History: extensive LLE DVT Exam: [facility] Clinical Presentation: Pt admitted 10/12 with LLE [...] understanding Therapy Time Individual Co-treatment Time In 0905 Time Out 0913 Minutes 8 Percy De La Rosa PT * Bhaskar Reyes MD - 10/15/2022 12:50 PM EDT Hospitalist Progress Note 10/15/2022 [phone]: Please secure chat me for patient care issues. [phone]: Please secure chat [facility] Hospitalist for any issues. Subjective: Admit Date: 10/12/2022 PCP: Leanne Perales MD Room#: H3-332/E4-545 A Interval History: Sudden onset of severe EARLY and blurry vision. No limb weakness. He denies chest pain, sob, abdominal pain, nausea, vomiting, diarrhea, fevers, or chills. Tolerating diet. Still no good bowel movement yet. D/w pt and family at bedside and RN separately. D/w Danelle CRM ARCHITECT RN separately also. Adult diet Regular @VZHM9IVZPOT@ 24HR INTAKE/OUTPUT: Intake/Output Summary (Last 24 hours) [...] rearrange some schedules to get him in [place]. She was going to call and talk with Corrie. Acute cystitis without hematuria 02/27/2022 Benign neoplasm [...] Emergency Contact: Maury Queen Mobile Relation: Child Head Of Talent Management needed? No Secondary Emergency Contact: AmparokatieIsa Mobile Relation: Other BHASKAR REYES MD Division of Hospitalist Medicine [facility] PAGER: Epic chat * Bhaskar Reyes MD - 10/14/2022 1:26 PM EDT Images from the original note were not included. Hospitalist Progress Note 10/14/2022 [phone]: Please secure chat pr for patient care issues. [phone]: Please secure chat [facility] Hospitalist for any issues. Subjective: Admit Date: 10/12/2022 PCP: Leanne Perales MD Room#: M7-029/X1-020 A Interval History: Constipated. LLE with continued pain and swelling. Some difficulty ambulating. Hedenies chest pain, sob, abdominal pain, nausea, vomiting, diarrhea, fevers, or chills. Tolerating diet. D/w pt and RN at bedside. D/w Dr Cooper separately via secure chat. Adult diet Regular @[id number]@ 24HR INTAKE/OUTPUT: Intake/Output Summary (Last 24 hours) [...] rearrange some schedules to get him in [place]. She was going to call and talk with Corrie. Acute cystitis without hematuria 02/27/2022 Benign neoplasm [...] Emergency Contact: Maury Queen Mobile Relation: Child Head Of Talent Management needed? No Secondary Emergency Contact: Isa Jiang Mobile Relation: Other BHASKAR REYES MD Division of Hospitalist Medicine [facility] PAGER: Epic chat * Tegan Murry - 10/14/2022 9:14 AM EDT Nutrition rescreen completed. Patient assigned a level 1. documented in this encounterSPremier Health [facility] Hospital NorthTtwzer42-95-7158 Note* Care Coordination - Natacha Deluna RN - 10/16/2022 11:52 AM EDT Did update patient that had spoken with Tayler at Dr. Basilio's office and she is working on prior authorization for additional refills of his xarelto. Patient acknowledges verbal understanding. Still complaining of pain. Did update primary care nurse at time of visit and also wanting to speak withphysician regarding results of ultrasound. Did update nurse of this. [facility] evaluated [facility] independently with no assistive devices required. [facility] HospitalOgdxqf37-10-1685 Note* Care Coordination - Natacha Deluna RN - 10/16/2022 11:52 AM EDT Did update patient that had spoken with Tayler at Dr. Basilio's office and she is working on prior authorization for additional refills of his xarelto. Patient acknowledges verbal understanding. Still complaining of pain. Did update primary care nurse at time of visit and also wanting to speak withphysician regarding results of ultrasound. Did update nurse of this. Was evaluated by therapist enid hernández independently with no assistive devices required. [facility] HospitalKtrfnd52-77-1056 Note* Care Coordination - Natacha Deluna RN - 10/16/2022 6:45 AM EDT Images from the original note were not included. Care Management Progress Note Spoke with [facility] yesterday afternoon. They are unable to obtain PA for med due to patient not being cardiology patient. Did call and speak with Tayler at Dr. Basilio's office. She will submit for PA for patient's remaining refills of xarelto. She will notify patient if med not approved and discuss with Dr. Basilio alternative OACs. Will place this information on AVS for patient. Patient complaining of blurred vision/AERLY yesterday afternoon. Stat CT scan obtained and negative.Repeat left lower extremity US yesterday. Pt/ot evals are ordered and pending. Has not required iv pain medication in last 24 hours. Pain scores 3-7. Tentative discharge home vs home with [facility] when medically stable. Will monitor therapy evals [...] of Stay (Days): 4 GMLOS: 3.0 . [facility] HospitalBjiqaw69-60-1764 Note* Care Coordination - Natacha Deluna RN - 10/16/2022 6:45 AM EDT Images from the original note were not included. Care Management Progress Note Spoke with [facility] yesterday afternoon. They are unable to obtain PA for med due to patient not being cardiology patient. Did call and speak with Tayler at Dr. Basilio's office. She will submit [...] 3-7. Tentative discharge home vs home with [facility] when medically stable. Will monitor therapy evals [...] of Stay (Days): 4 GMLOS: 3.0 . [facility] HospitalNfcdve20-11-7109 History of Present illness Narrative* Anel Rubin LPN - 10/15/2022 10:31 PM EDT Chart reviewed of ED follow up Seen in [facility] ED on 10/12/22 Reason: leg pain Discharge instructions: Asked Dr. Perales about renewing your anticoagulation medicine and how long you will need to be on the medicine. PATIENT REFERRED TO: Leanne Perales MD [address] [place] [address], [address] [facility] [address] In 1 week Pt [facility] 4S Telemetryfor complaint of leg pain. Admitting DX was acute deep vein thrombosis of left lower extremity and ambulatory dysfunction.. * Anel Rubin LPN - 10/15/2022 10:31 PM EDT Was notified per Dr. Bruce office that patient no longer follows Dr. Perales, he follows Dr. Cheryl Basilio. documented in this encounterSPremier Health [facility] Hospital NorthMwopaa76-10-2415 Note* Care Coordination - LEIGH Goldstein - 10/15/2022 3:19 PM EDT S/W, follow up TCC did message that Dr. Gray office will do the prior auth on Xarelto. [facility] HospitalSahygb44-71-6298 Note* Care Coordination - LEIGH Goldstein - 10/15/2022 3:19 PM EDT S/W, follow up TCC did message that Dr. Gray office will do the prior auth on Xarelto. [facility] HospitalRzvrnl16-14-7720 Note* Rapid Response Note - Danelle Louis [...] lovenox. Dr Reyes orders a head CT [facility] HospitalYtbyug23-80-7123 Note* Rapid Response Note - Danelle Louis [...] lovenox. Dr Reyes orders a head CT [facility] HospitalRxpnky22-26-4265 Note* Care Coordination - Natacha Deluna RN - 10/15/2022 12:34 PM EDT Did call and speak with Xiomara from [facility] pharmacy and requested that PA be initiated onxarelto. She will contact [facility] once obtained. Updated attending of this. [facility] HospitalNmskae01-60-0917 Note* Care Coordination - Natacha Deluna RN - 10/15/2022 12:34 PM EDT Did call and speak with Xiomara from [facility] pharmacy and requested that PA be initiated onxarelto. She will contact [facility] once obtained. Updated attending of this. [facility] HospitalWjagzv03-14-6063 Note* Care Coordination - Natacha Deluna RN - 10/15/2022 9:34 AM EDT Per meds to beds xarelto will require PA [phone]. [address]Asynzu15-50-3578 Note* Care Coordination - Natacha Deluna RN - 10/15/2022 9:34 AM EDT Per meds to beds xarelto will require PA [phone]. [facility] HospitalWtucja98-56-0411 Note* Care Coordination - Natacha Deluna RN - 10/15/2022 6:33 AM EDT Images from the original note were not included. Care Management Progress Note Family picked up first 30 days worth of xarelto from [facility] in [place](free with coupon). Awaiting call from meds to [...] Stay (Days): 3 GMLOS: No GMLOS Documented [facility]08-21-2023 Note* Care Coordination - Natacha Deluna RN - 10/15/2022 6:33 AM EDT Images from the original note were not included. Care Management Progress Note Family picked up first 30 days worth of xarelto from [facility] in [place](free with coupon). Awaiting call from meds to [...] Stay (Days): 3 GMLOS: No GMLOS Documented [facility] HospitalRtvqwh63-46-0618 Note* Care Coordination - Natacha Deluna RN - 10/14/2022 4:53 PM EDT Did [email or web address] chat Dr. Reyes regarding xarelto script sent from ER only being for 10 day supply. He sent over new script for 30 day supply to [facility]. Called and spoke with pharmacist at [facility] and 30 day script has already been picked up by patient's brother in law and 10 day script was cancelled. Patient did not accrue any charge for his 30 day script. . [facility] HospitalIkoved22-88-1418 Note* Care Coordination - Natacha Deluna RN - 10/14/2022 4:53 PM EDT Did [email or web address] chat Dr. Reyes regarding xarelto script sent from ER only being for 10 day supply. He sent over new script for 30 day supply to [facility]. Called and spoke with pharmacist at [facility] and 30 day script has already been picked up by patient's brother in law and 10 day script was cancelled. Patient did not accrue any charge for his 30 day script. . [facility] HospitalMzotdc72-85-6012 Plan of care note* Care Plan - [...] as tolerate. Patient given warm prune juice. [facility] HospitalKytnsf26-75-9894 Consult note* Juan José Obando MD - 10/14/2022 10:55 AM EDT Images from the original note were not included. Juan José Cooper MD [facility] Hematology/Oncology - [facility] [address] [address] Dept: [phone] Dept PROBLEM LIST: 1.LLE DVT (provoked) -10/12/22 duplex = DVT throughout LLE including common femoral vein ASSESSMENT AND PLAN: Corrie Queen is a 62 y.o. male here [...] etc). Pt requests to be seen at [facility] so I have our office arrange for f/u visit 2. Hypercalcemia PTH = wnl Today Ca level = WNL Agree w/ screening CT chest HPI: Corrie Queen is a 62 y.o. male who presents here today with Patient with a past medical history of BPH, chronic kidney disease stage II with a baseline creatinine of 1.2-1.3, dyslipidemia, fatty liver who presents on this admission to the emergency room on October 12, 2022 with leg pain. Of note, the patient was diagnosed with a DVT at [place] emergency room and sent home with Xarelto. However he cannot afford the co-pay and went back to the emergency room at [place] before beingadmitted to [place]. Also of note, the patient was admitted from September 17 through September 23, 2022 with multidrug-resistant UTI/right pyelonephritis. He was prescribed a course of IV antibiotics to be completed on September 26, [address] to [place] and back , returning just about 1 [...] rearrange some schedules to get him in [place]. She was going to call and talk with Corrie. Acute cystitis without hematuria 02/27/2022 Benign neoplasm [...] Allergen Reactions Meperidine Nausea And Vomiting Demerol Reviewed medications, allergies, past medical history, social history, family history as above. 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 Attending Attestation Note: I have personally performed a face to face diagnostic evaluation on this patient on 10/14/22 . I spent the 75 min visit with patient , discussing case w/ primary MD, counseling patient/documenting and coordinating care regarding diagnosis, workup/testing, treatment as well as answering questions. Juan José Cooper MD [facility] [employer] Work Phone: 1(553) 298-122408-20-2023 Consult note* Juan José Obando MD - 10/14/2022 10:55 AM EDT Images from the original note were not included. Juan José Cooper MD [facility] Hematology/Oncology - [facility] [address] [id number] Dept: [phone] Dept PROBLEM LIST: 1.LLE DVT (provoked) -10/12/22 duplex = DVT throughout LLE including common femoral vein ASSESSMENT AND PLAN: Corrie Queen is a 62 y.o. male here [...] etc). Pt requests to be seen at [facility] so I have our office arrange for f/u visit 2. Hypercalcemia PTH = wnl Today Ca level = WNL Agree w/ screening CT chest HPI: Corrie Queen is a 62 y.o. male who presents here today with Patient with a past medical history of BPH, chronic kidney disease stage II with a baseline creatinine of 1.2-1.3, dyslipidemia, fatty liver who presents on this admission to the emergency room on October 12, 2022 with leg pain. Of note, the patient was diagnosed with a DVT at [place] emergency room and sent home with Xaradhato. However he cannot afford the co-pay and went back to the emergency room at [place] before beingadmitted to [place]. Also of note, the patient was admitted from September 17 through September 23, 2022 with multidrug-resistant UTI/right pyelonephritis. He was prescribed a course of IV antibiotics to be completed on September 26, [address] to [place] and back , returning just about 1 [...] rearrange some schedules to get him in [place]. She was going to call and talk with Corrie. Acute cystitis without hematuria 02/27/2022 Benign neoplasm [...] Allergen Reactions Meperidine Nausea And Vomiting Demerol Reviewed medications, allergies, past medical history, social history, family history as above. 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 Attending Attestation Note: I have personally performed a face to face diagnostic evaluation on this patient on 10/14/22 . I spent the 75 min visit with patient , discussing case w/ primary MD, counseling patient/documenting and coordinating care regarding diagnosis, workup/testing, treatment as well as answering questions. Juan José Cooper MD documented in this encounterSPremier Health Miami [facility] Hospital NorthPpdcek15-10-5208 Plan of care note* Care Plan - [...] After rest , color and pain improves. [facility] HospitalZyuapr08-23-0136 Note* Care Coordination - Natacha Deluna RN - 10/13/2022 3:56 PM EDT Called [facility] [place]. Xarelto script does require PA. Had pharmacist run without insurance and only use FREE 30 day copay card and was able to go through with no cost. Returned to patient's room. Met with he and his daughter Isa. Apologized for earlier misunderstanding. Explained [facility] [place] and his [facility]to had gone through with [...] Patient and daughter requesting to speak with supervisor litharge about separate incident. 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 Discharge plan is home when medically stable. [facility] HospitalUrwpua22-01-5625 Note* Care Coordination - Natacha Deluna RN - 10/13/2022 3:56 PM EDT Called [facility] [place]. Xarelto script does require PA. Had pharmacist run without insurance and only use FREE 30 day copay card and was able to go through with no cost. Returned to patient's room. Met with he and his daughter Isa. Apologized for earlier misunderstanding. Explained thathad spoken to [facility] [place] and his xarelto had gone through with [...] Patient and daughter requesting to speak with supervisor litharge about separate incident. 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 Discharge plan is home when medically stable. [facility] HospitalRnlnxj47-39-7589 Note* Care Coordination - Natacha Deluna RN - 10/13/2022 3:50 PM EDT Care Managment Initial Assessment Date: 10/13/2022 Patient Name: Corrie Queen : 1960 Patient Information Source of Information: Patient Name/Contact Information: ISA HENSLEY [phone] DAUGHTER MAURY QUEEN DAUGHTER [phone] Cognition/Language: WFL - Within Functional Limits Permission given to speak with patient treasury representative/caregiver as indicated: Yes Confirmation of Payer [...] Daily Living Prescription Coverage: Yes [facility] Medication Management: Independent Transportation/Shopping: Independent Transportation [...] consulted. Daily labs. Spoke with attending via [email or web address] chat and wanted to know costs of [...] stated we were no different here from [facility] and he wanted to speak with the doctor. He threw off his blankets and stated he was out of here. Did update primary care nurse and attending... Natacha Deluna RN [facility] HospitalCsqpjw56-39-6207 Note* Care Coordination - Natacha Deluna RN - 10/13/2022 3:50 PM EDT Care Managment Initial Assessment Date: 10/13/2022 Patient Name: Corrie Queen : 1960 Patient Information Source of Information: Patient Name/Contact Information: ISA HENSLEY [phone] DAUGHTER MAURY QUEEN DAUGHTER [phone] Cognition/Language: WFL - Within Functional Limits Permission given to speak with patient treasury representative/caregiver as indicated: Yes Confirmation of Payer with patient/family: Yes Payer Name: MMO [place]: No Confirmation of Primary Care Physician: Confirmed [...] Daily Living Prescription Coverage: Yes [facility] [place] Medication Management: Independent Transportation/Shopping: Independent Transportation Mode: [...] consulted. Daily labs. Spoke with attending via [email or web address] chat and wanted to know costs of [...] stated we were no different here from [facility] and he wanted to speak with the doctor. He threw off his blankets and stated he was out of here. Did update primary care nurse and attending... Natacha Deluna RN [facility] HospitalKmfzup69-37-2529 Note* Significant Event - Bhaskar Reyes MD - 10/13/2022 3:26 PM EDT Seen and examined. Chart/labs/tests reviewed. D/w pt and family at bedside and RN and CM separately. Please see H&P done by Dr Allison earlier today for complete details. [facility] HospitalOqvwzp19-94-9054 Note* Significant Event - Bhaskar Reyes MD - 10/13/2022 3:26 PM EDT Seen and examined. Chart/labs/tests reviewed. D/w pt and family at bedside and RN and CM separately. Please see H&P done by Dr Allison earlier today for complete details. [facility] HospitalScnuks72-18-9204 History and physical note* Yared Allison MD - 10/13/2022 3:55 AM EDT Images from the original note were not included. History and Physical [facility] Corrie Queen : 1960 AGE 62 y.o. YEARS Note Date 10/13/2022 Primary Care Physician:Leanne Perales MD Current Providers as of 10/12/2022 PCP: Leanne Perlaes MD Referring Provider: not found, starting on SatOct 12, 2022 12:00 AM Admitting Provider: Yared Allison MD, (Active) Attending Provider: Natacha Frankel DO, starting on SatOct 12, 2022 7:47 PM, ending on 2022 10:32 PM (Inactive) Attending Provider: Yared Allison MD, starting on SatOct 12, 2022 9:10 PM (Active) Registered Nurse: Ziggy Barron RN, starting on SatOct 12, 2022 8:02 PM, ending on SatOct 12, 2022 10:32 PM (Inactive) Registered Nurse: Otilia Molina RN, starting on SatOct 12, 2022 10:32 PM, ending on SatOct 13, 2022 3:53 AM (Inactive) Chief Complaint: Leg Pain HPI: He reports he noticed his left leg as sore on 10/11 evening Then on 8/18 he had more pain and then had swelling from his hip down - left leg He had a hard time walking and had pain He then went to [facility] He was diagnosed with a dvt and then he was started on lovenox and then sent home on xarelto However when he went to get the prescription filled, he reports is was $300 and he could not affordto get it filled Since he could not get it filled, he had not way to treat himself and he went back to the [facility] He recently travelled to [place] and was driving for about 14 hours [...] rearrange some schedules to get him in [place]. She was going to call and talk with Corrie. Acute cystitis without hematuria 02/27/2022 Benign neoplasm [...] He has had a truck trip to [place] which is [address] recently is his only precipitating factor he denies any other clotting disorders in the past He was seen at [place] ultrasound was done he was discharged on Xarelto unfortunately I think it might require preauthorization where the [id number]-vodcml expense for prescription was $300 she could [...] on hold to due risk bleed/procedure 10/13/2022 Corrie Queen [id number] Any scheduled follow up appointments Future Appointments Date Time Provider Department Center 12/11/2022 9:20 AM Garrison Garza MD [facility] None 01/02/2023 10:40 AM [facility] None 01/30/2023 10:00 AM Donna Roberts DO [facility] PUL None 02/14/2023 7:30 AM Leanne Perales MD [facility] 04/12/2023 8:00 AM Ziggy Frazier MD [facility] Extended Emergency Contact Information Primary Emergency Contact: Maury Queen Mobile Relation: Child Head Of Talent Management needed? No Secondary Emergency Contact: Isa Jiang Mobile Relation: Other Portions of this note may be electronically transcribed. Please forward a copy of this H&P to the primary care physician. [employer] Phone: [phone] 150-945208-19-2023 History and physical note* Yared Allison MD - 10/13/2022 3:55 AM EDT Images from the original note were not included. [facility] and Physical [facility] 1960 AGE 62 y.o. YEARS Note Date 10/13/2022 Primary Care Physician:Leanne Perales MD Current Providers as of 10/12/2022 PCP: Leanne Perales MD Referring Provider: not found, starting on SatOct 12, 2022 12:00 AM Admitting Provider: Yared Allison MD, (Active) Attending Provider: Natacha Frankel DO, starting on SatOct 12, 2022 7:47 PM, ending on 2022 10:32 PM (Inactive) Attending Provider: Yared Allison MD, starting on SatOct 12, 2022 9:10 PM (Active) Registered Nurse: Ziggy Barron RN, starting on SatOct 12, 2022 [...] and had pain He then went to [place] [place] He was diagnosed with a dvt and then he was started on lovenox and then sent home on xarelto However when he went to get the prescription filled, he reports is was $300 and he could not affordto get it filled Since he could not get it filled, he had not way to treat himself and he went back to the [facility] He recently travelled to [place] and was driving for about 14 hours [...] rearrange some schedules to get him in [place]. She was going to call and talk with Corrie. Acute cystitis without hematuria 02/27/2022 Benign neoplasm [...] He has had a truck trip to [place] which is [address] recently is his only precipitating factor he denies any other clotting disorders in the past He was seen at [place] ultrasound was done he was discharged on Xarelto unfortunately I think it might require preauthorization where the rfg-ef-tnrsok expense for prescription was $300 she could [...] on hold to due risk bleed/procedure 10/13/2022 Corrie Montano Evangelist [id number] Any scheduled follow up appointments Future Appointments Date Time Provider Department Center 12/11/2022 9:20 AM Garrison Garza MD [facility] None 01/02/2023 10:40 AM Rocio Ruiz MD [facility] END None 01/30/2023 10:00 AM Donna Roberts DO [facility] PUL None 02/14/2023 7:30 AM Leanne Perales MD [facility] 04/12/2023 8:00 AM Ziggy Frazier MD [facility] Contact Information Primary Emergency Contact: Maury Queen Mobile Relation: Child Head Of Talent Management needed? No Secondary Emergency Contact: Isa Jiang Mobile Relation: Other Portions of this note may be electronically transcribed. Please forward a copy of this H&P to the primary care physician. documented in this [facility]08-18-2023 Emergency department Note* Ziggy Barron RN - 10/12/2022 9:40 PM EDT Pt and his daughter agreeable to transport via automobile to [facility]. Report called to [address] [address] [address] nurse. Ziggy Barron RN 10/12/222146 [facility] HospitalOfmzqd40-77-7874 Emergency department Note* Ziggy Barron RN - 10/12/2022 9:40 PM EDT Pt and his daughter agreeable to transport via automobile to [facility]. Report called to [address] nurse[address] Ziggy Barron RN 10/12/222146 * Natacha Frankel DO - 10/12/2022 7:42 PM EDT EMERGENCY DEPARTMENT ENCOUNTER Pt Name: Corrie Queen Birthdate 1960 Date of evaluation: 10/12/2022 ED Provider: Natacha Frankel DO CHIEF COMPLAINT Chief Complaint Patient presents with Leg Pain HISTORY OF PRESENT ILLNESS (Location/Symptom, Timing/Onset, Context/Setting, Quality, Duration, Modifying Factors, Severity) Note limiting factors. I wore appropriate PPE for the entirety of this encounter. HPI Corrie Queen is a 62 y.o. who presents [...] rearrange some schedules to get him in [place]. She was going to call and talk with Corrie. Acute cystitis without hematuria 02/27/2022 Benign neoplasm [...] Medicine Provider Natacha Frankel DO 10/12/222121 * Ziggy Barron RN - 10/12/2022 7:42 PM EDT Pt to room 4 via wheelchair with c/o left leg pain and swelling which onset was 5pm. Pt was seen earlier today and discharged but was later decided he was uncomfortable being on his own because he iscurrently wheelchair bound when he normally is ambulatory. Pt a/ox3 documented in this [facility]08-18-2023 Emergency department Triage note* Ziggy Barron RN - 10/12/2022 7:42 PM EDT Pt to room 4 via wheelchair with c/o left leg pain and swelling which onset was 5pm. Pt was seen earlier today and discharged but was later decided he was uncomfortable being on his own because he iscurrently wheelchair bound when he normally is ambulatory. Pt a/ox3 [facility] HospitalClawto91-50-0243 Physician Emergency department Note* Natacha Frankel DO - 10/12/2022 7:42 PM EDT EMERGENCY DEPARTMENT ENCOUNTER Pt Name: Corrie Queen Birthdate 1960 Date of evaluation: 10/12/2022 ED Provider: Natacha Frankel DO CHIEF COMPLAINT Chief Complaint Patient presents with Leg Pain HISTORY OF PRESENT ILLNESS (Location/Symptom, Timing/Onset, Context/Setting, Quality, Duration, Modifying Factors, Severity) Note limiting factors. I wore appropriate PPE for the entirety of this encounter. HPI Corrie Queen is a 62 y.o. who presents [...] rearrange some schedules to get him in [place]. She was going to call and talk with Corrie. Acute cystitis without hematuria 02/27/2022 Benign neoplasm [...] signed) Emergency Medicine Provider Natacha Frankel DO 10/12/222 [facility] HospitalUtsfpc79-44-2318 Hospital Discharge instructions* Discharge Instructions* Pacheco Negron MD - 10/12/2022 3:[address] Perales about renewing your anticoagulation medicine and how long you will need to be on the medicine. * Attachments The following attachments cannot be sent through Care Everywhere. * Deep Vein Thrombosis (Blood Clot in the Legs) (Cymro) * Going Home on Blood Thinners (Cymro) documented in this [facility]08-18-2023 Emergency department Note* Lauren Del Angel RN - 10/12/2022 1:23 PM EDT Physician at bedside Lauren Del Angel RN 10/12/22 1538 [facility] HospitalDmgpvn33-76-3059 Emergency department Note* Lauren Del Angel RN - 10/12/2022 1:23 PM EDT Pt medicated for pain prior to discharge d/t increased pain. Lauren Del Angel RN 10/12/22 1622 [place] [id number] Emergency department Note* Pacheco Negron MD - 10/12/2022 1:23 PM EDT EMERGENCY DEPARTMENT ENCOUNTER Pt Name: Corrie Queen Birthdate 1960 Date of evaluation: 10/12/2022 ED Provider: Pacheco Negron MD CHIEF COMPLAINT Chief Complaint Patient presents with Leg Pain History from patient HISTORY OF PRESENT ILLNESS (Location/Symptom, Timing/Onset, Context/Setting, Quality, Duration, Modifying Factors, Severity) Note limiting factors. I wore appropriate PPE for the entirety of this encounter. HPI Corrie Queen is a 62 y.o. who presents to the emergency department with chief complaint of left leg swelling. Began yesterday. Diffuse swelling and pain on his entire leg. Hurts to walk. Never had this before. No fever or overuse. No injury. No pain elsewhere. Recently hospitalized for urinary retention and infection. Recently drove home from [place]. States he is adopted but his biologic [...] rearrange some schedules to get him in [place]. She was going to call and talk with Corrie. Acute cystitis without hematuria 02/27/2022 Benign neoplasm [...] Discharge 10/12/2022 03:47:20 PM PATIENT REFERRED TO: Leanne Perales MD [address] [place] [address], [address] [facility] [phone] In 1 week DISCHARGE MEDICATIONS: New Prescriptions [...] Emergency Medicine Provider Pacheco Negron MD 10/12/22 3824 Addendum 5:54 PM received call from patient stating that right alen Koenig would not fill his prescription. I contacted Danyelle in the pharmacy who stated that she needed pre-authorization from insurance. Shewas made aware that the patient has a DVT and is at increased for pulmonary embolism, that he needed his medication and that no insurance company would give pre-authorization over the weekend. She suggested changing the prescription to Eliquis which I did. Eliquis 10 mg twice daily for 10 days. Patient aware. Pacheco Negron MD 10/12/22 7722 Pacheco Negron MD 10/12/22 8983 * Lauren Del Angel RN - 10/12/2022 [...] he states he was recently discharged from hospital [facility] and then informs that he did recently drive home from [place] and returned last week. * Lauren Del Angel RN - 10/12/2022 1:23 PM EDT Physician at bedside Lauren Del Angel RN 10/12/22 1328 * Lauren Del Angel RN - 10/12/2022 1:23 PM EDT Pt medicated for pain prior to discharge d/t increased pain. Lauren Del Angel RN 10/12/22 1622 documented in this [facility]08-18-2023 Emergency department Triage note* Lauren Del [...] he states he was recently discharged from [facility] and then informs that he did recently drive home from [place] and returned last week. [facility]dd[facility]52 Physician Emergency department Note* Pacheco Negron MD - 10/12/2022 1:23 PM EDT EMERGENCY DEPARTMENT ENCOUNTER Pt Name: Corrie Queen Birthdate 1960 Date of evaluation: 10/12/2022 ED Provider: Pacheco Negron MD CHIEF COMPLAINT Chief Complaint Patient presents with Leg Pain History from patient HISTORY OF PRESENT ILLNESS (Location/Symptom, Timing/Onset, Context/Setting, Quality, Duration, Modifying Factors, Severity) Note limiting factors. I wore appropriate PPE for the entirety of this encounter. HPI Corrie Queen is a 62 y.o. who presents to the emergency department with chief complaint of left leg swelling. Began yesterday. Diffuse swelling and pain on his entire leg. Hurts to walk. Never had this before. No fever or overuse. No injury. No pain elsewhere. Recently hospitalized for urinary retention and infection. Recently drove home from [place]. States he is adopted but his biologic [...] rearrange some schedules to get him in [place]. She was going to call and talk with Corrie. Acute cystitis without hematuria 02/27/2022 Benign neoplasm [...] Discharge 10/12/2022 03:47:20 PM PATIENT REFERRED TO: Leanne Perales MD [address] [place] [address], [address] [facility] [address] In 1 week DISCHARGE MEDICATIONS: New Prescriptions [...] Emergency Medicine Provider Pacheco Negron MD 10/12/22 2539 Addendum 5:54 PM received call from patient stating that right alen Koenig would not fill his prescription. I contacted Danyelle in the pharmacy who stated that she needed pre-authorization from insurance. Estherwaalicia made aware that the patient has a DVT and is at increased for pulmonary embolism, that he needed his medication and that no insurance company would give pre-authorization over the weekend. She suggested changing the prescription to Eliquis which I did. Eliquis 10 mg twice daily for 10 days. Patient aware. Pacheco Negron MD 10/12/22 6681 Pacheco Negron MD 10/12/22 5362 [facility] [id number] History of Present illness Narrative* Cheryl Basilio MD - 10/11/2022 8:20 AM EDT Images from the original note were not included. [facility] [address] [facility] [address] Dept: [phone] Dept Loc: [phone] Visit type: New patient Reason for Visit: New Patient ([facility] care) Assessment and Plan 1. Recurrent UTI [...] rearrange some schedules to get him in [place]. She was going to call and talk with Corrie. Acute cystitis without hematuria 02/27/2022 Benign neoplasm [...] alert. Cheryl Basilio MD documented in this [facility]08-16-2023 History of Present illness Narrative* Donna Roberts, DO - 10/10/2022 1:00 PM EDT [facility] Department of Pulmonary Medicine PATIENT VISIT-PULMONARY 10/10/2022 REFERRING PHYSICIAN: Leanne Perales MD REASON FOR REFERRAL: pleural fluid / copd/ eval Three 6-month follow-up. After PFTs, Corrie Queen is a very pleasant 62 y.o. [...] pleural effusion. 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 Most recently he traveled to [place], and 10/02 2022, had sharp pain in [...] history. We evaluated his bilateral chest with ofevq-yt-fjzr ultrasound and no significant or complicated pleural effusions were detected. Patient denies any significant respiratory limitations at this time, and able to form all activities of daily living without limitation. He is planning upcoming trip again to [place] for [employer] and [employer], and feels at baseline at this time. [...] incidentally trace noted on outside CT in [place]. No evidence of recurrence on physical exam and qlbra-fc-mevv ultrasound. History of recent hospitalization, ESBL recurrent [...] post bronchodilator CT lung screening low dose Ledybarb sample provided. History of Present Illness Smoking [...] rearrange some schedules to get him in [place]. She was going to call and talk with Corrie. Acute cystitis without hematuria 02/27/2022 Benign neoplasm [...] Review Audit Reviewed by Danae Dudley MA (Morgue Librarian) on 10/10/22 at 1242 Medication Order Taking? Sig Documenting Provider Last Dose Status cabergoline (Dostinex) 0.5 MG tablet [id number] Yes take 1 1/2 tablet by mouth ON SATURDAY AND SATURDAY Leanne Perales MD Taking Active fenofibrate (Triglide) 160 MG tablet [id number] Yes take 1 tablet by mouth once daily FELISHA Jeronimo CNP Taking Active levothyroxine (Synthroid, Levoxyl) 100 MCG tablet [id number] Yes Take 1 tablet (100 mcg) by mouth daily. Rocio Ruiz MD Taking Active niacin (Niaspan) 1000 MG ER tablet [id number] Yes Take 1 tablet (1,000 mg) by mouth daily. Leanne Perales MD Taking Active rosuvastatin (Crestor) 10 MG tablet [id number] Yes Take 1 tablet (10 mg) by mouth daily. Leanne Perales MD Taking Active tadalafil (Cialis) 20 MG tablet [id number] Yes Take 1 tablet (20 mg) by mouth Daily as needed for erectile dysfunction. FELISHA Jeronimo CNP Taking Active tamsulosin (Flomax) 0.4 MG 24 hr capsule [id number] Yes Take 1 capsule (0.4 mg) by [...] Results: No results found for: FEV1, FVC, EOO8OPB, TLC, DLCO Orders Placed This Encounter Procedures [...] pre and post bronchodilator documented in this [facility]08-16-2023 Instructions* Patient Instructions* Danae Dudley MA - 10/10/2022 1:00 PM EDT YOUR APPOINTMENT TODAY WAS WITH THE [facility] LUNG NODULE CLINIC, COPD CLINIC, PULMONARY AND SLEEP MEDICINE OFFICE. PLEASE CALL OUR OFFICE AT [phone] IF YOU HAVE NOT RECEIVED YOUR TEST [...] to make improvements. COVID-19 VACCINATION INFORMATION: PH. [phone] HEALTH.[email or web address]/VACCINE [facility] Central Scheduling [phone] [facility] Sleep Scheduling [phone] documented in this [facility]07-23-2023 Telephone encounter Note* Telephone Encounter - FELISHA Naylor CNP - 09/16/2022 12:34 PM EDT Reviewed urine culture results with patient. Urine culture resistant to multiple organisms. Stop cephalexin started recently and start nitrofurantoin 100 mg twice daily x 7 days. [facility] [id number] Miscellaneous Notes* Telephone Encounter - FELISHA Naylor CNP - 09/16/2022 12:34 PM EDT Reviewed urine culture results with patient. Urine culture resistant to multiple organisms. Stop cephalexin started recently and start nitrofurantoin 100 mg twice daily x 7 days. documented in this [place] [address] Evaluation + Plan note* Assessment & Plan Note - FELISHA Naylor CNP - 09/13/2022 12:57 PM EDTAssociated Problem(s): Urinary tract infection symptoms UA trace blood, + leukocytes. Send for culture. We will wait for urine culture results. No fever orchills. CT of abd/pelvis next week. Has bee referred to urology. Go to ER for development of fever, chills, n/v. Increased flank pain [facility] HospitalEwrpqm44-48-3572 Miscellaneous Notes* Assessment & Plan Note - FELISHA Naylor CNP - 09/13/2022 12:57 PM EDTAssociated Problem(s): Urinary tract infection symptoms UA trace blood, + leukocytes. Send for culture. We will wait for urine culture results. No fever orchills. CT of abd/pelvis next week. Has bee referred to urology. Go to ER for development of fever, chills, n/v. Increased flank pain documented in this [facility]07-20-2023 History of Present illness Narrative* Paloma [...] the original note were not included. 09/13/2022 Corrie Queen (: 1960) is a 62 y.o. [...] directed pending test results. SUBJECTIVE/OBJECTIVE: HPI - Corrie Queen (: 1960) is a 62 y.o. [...] tablet by mouth ON SATURDAY AND Saturday08/22/22 YesLeanne Perales MD fenofibrate (Triglide) 160 MG tablet take 1 tablet by mouth once daily 07/04/22 Yes FELISHA Jeronimo CNP levothyroxine (Synthroid, Levoxyl) 100 MCG tablet Take 1 tablet (100 mcg) by mouth daily. 03/13/22 Yes Rocio Ruiz MD niacin (Niaspan) 1000 MG ER tablet Take 1 tablet (1,000 mg) by mouth daily. 05/07/22 Yes Leanne Preales MD rosuvastatin (Crestor) 10 MG tablet Take 1 tablet (10 mg) by mouth daily. 05/07/22 Yes Leanne Lang MD tadalafil (Cialis) 20 MG tablet [...] CNP 09/13/2022 11:54 AM documented in this [facility]07-20-2023 Instructions* Patient Instructions* FELISHA Naylor CNP - 09/13/2022 11:40 AM EDT I will call you on Saturday to update on urine culture. documented in this [facility]06-28-2023 Telephone encounter Note* Telephone Encounter - Nelli Lama MA - 08/22/2022 1:29 PM EDT Prescription Request: Last medication check: 08/03/21 Last physical exam: 02/06/22 Next scheduled appointment: 02/14/23 Last date of refill on this medication 04/04/22 36 tablets 1 refill [facility] [id number] Miscellaneous Notes* Telephone Encounter - Nelli Lama MA - 08/22/2022 1:29 PM EDT Prescription Request: Last medication check: 08/03/21 Last physical exam: 02/06/22 Next scheduled appointment: 02/14/23 Last date of refill on this medication 04/04/22 36 tablets 1 refill documented in this [facility]23 History of Present illness Narrative* Tayler Frausto Rob, FELISHA - FARM EQUIPMENT SERVICE TECHNICIAN - 08/17/2022 8:20 AM EDT Images from the original note were not included. 08/17/2022 Corrie Queen (: 1960) is a 61 y.o. [...] CNP 08/17/2022 8:44 AM documented in this [facility] History of Present illness Narrative* FELISHA Jeronimo CNP - 08/17/2022 8:20 AM EDT Images from the original note were not included. 08/17/2022 Corrie Queen (: 1960) is a 61 y.o. [...] CNP 08/17/2022 8:44 AM documented in this [facility]23 Miscellaneous Notes* Addendum Note - FELISHA Jeronimo CNP - 08/17/2022 8:20 AM EDTAddended by: TAYLER RVIAS on: 08/20/2022 09:36 AM Modules accepted: Orders documented in this [facility]-23-2023 Note* Addendum Note - FELISHA Jeronimo CNP - 08/17/2022 8:20 AM EDTAddended by: TAYLER RIVAS on: 08/20/2022 09:36 AM Modules accepted: Orders [place] [id number] Telephone encounter Note* Telephone Encounter - FELISHA Jeronimo CNP - 07/04/2022 3:57 PM EDT Rx sent. Follow up as scheduled. [facility] HospitalEukzmp04-24-7795 Miscellaneous Notes* Telephone Encounter - FELISHA Jeronimo [...] on this medication 10/16/21 documented in this [facility] NorthKxknuq31-54-5363 Telephone encounter Note* Telephone Encounter - Mary Garcia MA - 07/04/2022 3:20 PM EDT Prescription Request: Last medication check: 08/03/21 Last physical exam: 02/06/22 Next scheduled appointment: 08/06/22 CSA on file (date): na Last urine drug screen: na Last date of refill on this medication 10/16/21 [facility] HospitalYqnrlu10-41-5614 Evaluation + Plan note* Assessment & Plan Note - Leanne Perales MD - 06/19/2022 4:16 PM EDTAssociated Problem(s): Combined arterial insufficiency and corporo-venous occlusive erectile dysfunction Prescription for Cialis 20 mg printed so he can shop around for the best ruiz. [facility] HospitalMuemeh61-94-3756 Miscellaneous Notes* Assessment & Plan Note - Leanne Perales MD - 06/19/2022 4:16 PM EDTAssociated Problem(s): Combined arterial insufficiency and corporo-venous occlusive erectile dysfunction Prescription for Cialis 20 mg printed so he can shop around for the best ruiz. documented in this [facility]04-25-2023 Miscellaneous Notes* Assessment & Plan Note - Leanne Perales MD - 06/19/2022 4:16 PM EDT Associated Problem(s): Combined arterial insufficiency and corporo-venous occlusive erectile dysfunction Prescription for Cialis 20 mg printed so he can shop around for the best ruiz. * Addendum Note - Leanne Perales MD - 06/19/2022 1:45 PM EDTAddended by: LEANNE PERALES on: 06/21/2022 03:52 PM Modules accepted: Level of Service documented in this [facility]04-25-2023 History of Present illness Narrative* Nelly Correia MA - 06/19/2022 1:45 PM EDT Patient verified by last name and date of . Patient wants a design release engineer in the room during during the visit. no Senior Business Broker na * Leanne Perales MD - 06/19/2022 1:45 PM EDT Images from the original note were not included. 06/19/2022 Corrie Queen (: 1960) is a 61 y.o. [...] signature was used to authenticate this note. Leanne Perales MD 06/19/2022 4:17 PM documented in this [facility]04-25-2023 History of Present illness Narrative* Nelly Correia MA - 06/19/2022 1:45 PM EDT Patient verified by last name and date of . Patient wants a design release engineer in the room during during the visit. no Senior Business Broker na * Leanne Perales MD - 06/19/2022 1:45 PM EDT Images from the original note were not included. 06/19/2022 Corrie Queen (: 1960) is a 61 y.o. [...] signature was used to authenticate this note. Leanne Perales MD 06/21/2022 3:52 PM documented in this [facility]04-25-2023 Note* Addendum Note - Leanne Perales MD - 06/19/2022 1:45 PM EDTAddended by: LEANNE PERALES on: 06/21/2022 03:52 PM Modules accepted: Level of Service [facility] HospitalMlxcfc90-46-9030 Evaluation + Plan note* Assessment & Plan Note - Leanne Perales MD - 05/17/2022 12:42 PM EDTAssociated Problem(s): Right flank pain Recurrent flank pain. Urinalysis shows trace of blood and leukocytes, will send for culture and start him on Bactrim. [facility] [id number] Miscellaneous Notes* Assessment & Plan Note - Leanne Perales MD - 05/17/2022 12:42 PM EDTAssociated Problem(s): Right flank pain Recurrent flank pain. Urinalysis shows trace of blood and leukocytes, will send for culture and start him on Bactrim. documented in this [facility] History of Present illness Narrative* Paloma Holland - 05/17/2022 11:45 AM EDT Senior Business Broker for Intimate and Non Intimate Exam Senior Business Broker was declined Senior Business Broker: na * Leanne Perales MD - 05/17/2022 11:45 AM EDT Images from the original note were not included. 05/17/2022 Corrie Queen (: 1960) is a 61 y.o. [...] worsen or fail to improve. SUBJECTIVE/OBJECTIVE: HPI -Corrie comes in today for follow-up on a [...] signature was used to authenticate this note. Leanne Perales MD 05/17/2022 12:43 PM documented in this [facility]02-02-2023 Telephone encounter Note* Telephone Encounter - Chana Mckoy - 03/29/2022 4:39 PM EST Order closed [facility] [id number] Miscellaneous Notes* Telephone Encounter - Chana Mckoy - 03/29/2022 4:39 PM EST Order closed * Telephone Encounter - Leanne Perales MD - 03/27/2022 3:21 PM EST Okay, thank you okay to cancel the CT scan * Telephone Encounter - Nelli Lama - 03/27/2022 3:01 PM EST Patient notified, said he is not having any pain right now and doesn't think physical therapy is necessary. * Addendum Note - Leanne Perales MD - 03/27/2022 1:05 PM ESTAddended by: LEANNE PERALES on: 03/27/2022 01:05 PM Modules accepted: Orders * Telephone Encounter - Leanne Perales MD - 03/27/2022 1:03 PM EST We will need to contact patient to get him into physical therapy, referral done * Telephone Encounter - Chana Mckoy - 03/27/2022 10:15 AM EST How do you want to proceed with this denial? Okay to close orders? * Telephone Encounter - Chana Mckoy - 03/23/2022 12:[address]-Lumbar [...] after completing treatment. * Telephone Encounter - Chana oCnroy - 03/22/2022 12:50 PM EST Name of caller: Sima( Naomie ) Contact phone number: Apt 4 Relationship to Patient: pt Provider: Practice: [facility] [place] Chief Complaint/Reason for Call: Caller is stating that [facility] Auth for CT has been denied please ref [id number] as they will also be sending a fax Best time of day caller can be reached: any Patient advised that office/PCP has 24-48 business hours to return their call: No documented in this [facility]01-31-2023 Telephone encounter Note* Telephone Encounter - Leanne Perales MD - 03/27/2022 3:21 PM EST Okay, thank you okay to cancel the CT scan [facility] [id number] Miscellaneous Notes* Telephone Encounter - Leanne Perales MD - 03/27/2022 3:21 PM EST Okay, thank you okay to cancel the CT scan * Telephone Encounter - Nelli Lama - 03/27/2022 3:01 PM EST Patient notified, said he is not having any pain right now and doesn't think physical therapy is necessary. * Addendum Note - Leanne Perales MD - 03/27/2022 1:05 PM ESTAddended by: LEANNE PERALES on: 03/27/2022 01:05 PM Modules accepted: Orders * Telephone Encounter - Leanne Perales MD - 03/27/2022 1:03 PM EST We will need to contact patient to get him into physical therapy, referral done * Telephone Encounter - hCana Mckoy - 03/27/2022 10:15 AM EST How do you want to proceed with this denial? Okay to close orders? * Telephone Encounter - Chana Mckoy - 03/23/2022 12:[address]-Lumbar [...] after completing treatment. * Telephone Encounter - Chana Conroy - 03/22/2022 12:50 PM EST Name of caller: Sima( Naomie ) Contact phone number: Apt 4 Relationship to Patient: pt Provider: Practice: [facility] [place] Chief Complaint/Reason for Call: Caller is stating that [facility] Auth for CT has been denied please ref [id number] as they will also be sending a fax Best time of day caller can be reached: any Patient advised that office/PCP has 24-48 business hours to return their call: No documented in this [facility]01-31-2023 Telephone encounter Note* Telephone Encounter - Nelli Roseney - 03/27/2022 3:01 PM EST Patient notified, said he is not having any pain right now and doesn't think physical therapy is necessary. [facility] HospitalMxroee94-28-5564 Note* Addendum Note - Leanne Perales MD - 03/27/2022 1:05 PM ESTAddended by: LEANNE PERALES on: 03/27/2022 01:05 PM Modules accepted: Orders [facility] HospitalMtpysd09-01-4844 Note* Addendum Note - Leanne Perales MD - 03/27/2022 1:05 PM ESTAddended by: LEANNE PERALES on: 03/27/2022 01:05 PM Modules accepted: Orders [facility] HospitalOoyvvg97-85-1453 Note* Addendum Note - Leanne Perales MD - 03/27/2022 1:05 PM ESTAddended by: LEANNE PERALES on: 03/27/2022 01:05 PM Modules accepted: Orders [facility] HospitalSvdkbp30-91-4624 Note* Addendum Note - Leanne Perales MD - 03/27/2022 1:05 PM ESTAddended by: LEANNE PERALES on: 03/27/2022 01:05 PM Modules accepted: Orders [facility] [id number] Note* Addendum Note - Leanne Perales MD - 03/27/2022 1:05 PM ESTAddended by: LEANNE PERALES on: 03/27/2022 01:05 PM Modules accepted: Orders [facility] HospitalUhwydg48-31-2850 Telephone encounter Note* Telephone Encounter - Leanne Perales MD - 03/27/2022 1:03 PM EST We will need to contact patient to get him into physical therapy, referral done [facility] HospitalZywxkt06-04-4966 Telephone encounter Note* Telephone Encounter - Chana Mckoy - 03/27/2022 10:15 AM EST How do you want to proceed with this denial? Okay to close orders? [facility]01-27-2023 Telephone encounter Note* Telephone Encounter - Chana Mckoy - 03/23/2022 12:[address]-Lumbar [...] contact with your provider after completing treatment. [facility]01-27-2023 Miscellaneous Notes* Telephone Encounter - Chana Mckoy - 03/23/2022 12:[address]-Lumbar [...] after completing treatment. * Telephone Encounter - Chana Conroy - 03/22/2022 12:50 PM EST Name of caller: SimaLudivina Akbar ) Contact phone number: Apt 4 Relationship to Patient: pt Provider: Practice: [facility] Chief Complaint/Reason for Call: Caller is stating that [facility] Auth for CT has been denied please ref [id number] as they will also be sending a fax Best time of day caller can be reached: any Patient advised that office/PCP has 24-48 business hours to return their call: No documented in this [facility]01-26-2023 Telephone encounter Note* Telephone Encounter - Chana Conroy - 03/22/2022 12:50 PM EST Name of caller: Sima( Yolandajami ) Contact phone number: Apt 4 Relationship to Patient: pt Provider: Practice: [facility] Chief Complaint/Reason for Call: Caller is stating that [facility] for CT has been denied please ref [id number] as they will also be sending a fax Best time of day caller can be reached: any Patient advised that office/PCP has 24-48 business hours to return their call: No [facility] HospitalHwqmbd60-09-0107 Miscellaneous Notes* Telephone Encounter - Chana Conroy - 03/22/2022 12:50 PM EST Name of caller: Sima( Naomie ) Contact phone number: Apt 4 Relationship to Patient: pt [facility] Chief Complaint/Reason for Call: Caller is stating [facility] please ref [id number] as they will also be sending a fax Best time of day caller can be reached: any Patient advised that office/PCP has 24-48 business hours to return their call: No documented in this [facility]SPrem[facility] NorthAfamqx23-65-4178 Telephone encounter Note* Telephone Encounter - Deepa [...] prior to picking up the medication: Yes [facility] HospitalRqirgx23-17-7656 Miscellaneous Notes* Telephone Encounter - Deepa Burrell [...] up the medication: Yes documented in this [facility]01-10-2023 Evaluation + Plan note* Assessment & Plan Note - Leanne Perales MD - 03/06/2022 3:45 PM EST [...] about working or driving with this medicine. [facility] HospitalKjyhej83-19-3828 Miscellaneous Notes* Assessment & Plan Note - Leanne Perales MD - 03/06/2022 3:45 PM ESTAssociated [...] medicine. * Assessment & Plan Note - Leanne Perales MD - 03/06/2022 3:44 PM EST [...] driving with this medicine. documented in this [facility]01-10-2023 Evaluation + Plan note* Assessment & Plan Note - Leanne Perales MD - 03/06/2022 3:44 PM EST [...] about working or driving with this medicine. [id number] History of Present illness Narrative* Leanne Perales MD - 03/06/2022 3:00 PM EST Images from the original note were not included. 03/06/2022 Corrie Queen (: 1960) is a 61 y.o. [...] up After CT scan and medication. SUBJECTIVE/OBJECTIVE: LUIS Salgado comes in today for follow-up on his [...] signature was used to authenticate this note. Leanne Perales MD 03/06/2022 3:47 PM documented in this [facility]01-03-2023 Evaluation + Plan note* Assessment & Plan Note - FELISHA Naylor CNP - 02/27/2022 5:29 PM ESTAssociated Problem(s): Essential hypertension, benign Initial reading elevated. Repeat good. Not on medications. [facility] [id number] Miscellaneous Notes* Assessment & Plan Note - [...] (has rx from prior). documented in this [facility]01-03-2023 Miscellaneous Notes* Assessment & Plan Note [...] - 02/27/2022 1:20 PM EST Addended by: CHANA BROWN on: 02/28/2022 04:39 PM Modules accepted: Level of Service documented in this [facility]01-03-2023 Evaluation + Plan note* Assessment & Plan Note - FELISHA Naylor CNP - 02/27/2022 5:28 PM ESTAssociated Problem(s): Acute cystitis without hematuria Urine culture + ecoli. Sensitivity to augmentin. Will extend treatment for additional 4 days. Continue to monitor. Increase fluid intake. [facility] [id number] Evaluation + Plan note* Assessment & Plan Note - FELISHA Naylor CNP - 02/27/2022 5:27 PM ESTAssociated Problem(s): Flank pain Likely more musculoskeletal. No fever, non ill appearing. Ok for muscle relaxant (has rx from prior). [facility] [id number] History of Present illness Narrative* Paloma Holland - 02/27/2022 1:20 PM EST Senior Business Broker for Intimate and Non Intimate Exam Senior Business Broker was declined Senior Business Broker: na * FELISHA Naylor CNP - 02/27/2022 1:20 PM EST Images from the original note were not included. 02/27/2022 Corrie Queen (: 1960) is a 61 y.o. [...] CNP 02/27/2022 4:42 PM documented in this [facility] [id number] History of Present illness Narrative* Paloma Holland - 02/27/2022 1:20 PM EST Senior Business Broker for Intimate and Non Intimate Exam Senior Business Broker was declined Senior Business Broker: na * Chana Brown, CY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 - 02/27/2022 1:20 PM EST Images from the original note were not included. 02/27/2022 Corrie Queen (: 1960) is a 61 y.o. [...] CNP 02/27/2022 4:42 PM documented in this [facility]01-03-2023 Note* Addendum Note - FELISHA Naylor CNP - 02/27/2022 1:20 PM ESTAddended by: CHANA BROWN on: 02/28/2022 04:39 PM Modules accepted: Level of Service [facility] [id number] NoteHospitalist Discharge Summary Corrie Queen : 1960 Admit date: 12/01/2021 Discharge date: 12/06/2021 Total time Spent on Discharge: 32 minutes Admitting Physician: Temi Lynne MD Primary Care Physician: Leanne Perales MD Visit Status: Admission Code Status: [...] Your Medications These medications were sent to [id number] - [place], [place] - [address] [facility] - P [phone] - F [phone] [place] [address] [place] [phone] nicotine 21 MG/24HR Recommended Follow-up: PCP, cardiology, urology outpatient in 1-2 weeks Readmission Risk Risk of Unplanned Readmission: 11 Complexity of Follow up: [] Moderate Complexity: follow up within 7-14 calendar days (47154) [x] Severe Complexity: follow up within 7 calendar days (64716) Follow up Testing, Pending results or Referrals [...] frame. Signed: Best Fishman DO [facility] Medicine Inpatient Medical Services/[facility] 12/06/2021, 8:50 [facility]10-11-2022 History of Present illness Narrative* Nallely Villegas RN - 12/05/2021 8:11 PM EDT Patient has been adamant about taking his medications from home. Medications were sent down to Pharmacy to verify. Unable to scan meds because they are formulary. Notified Shikha, Brush Maker on 12/04/2021 of situation. Notified Kiara Kapoor UNIX SYSTEMS ADMINISTRATOR on 12/04/2021. Patient had been threatening to leave AMA on 12/03/2021 & 12/04/2021. Patient also adamantly refusing to receive ordered IVF. Dr. Barlow notified on 12/03/2021. Kiara Kapoor NP notified on 12/04/2021 Revisited situation with Shikha, Brush Maker on 12/05/2021. * Lorena Jama MD - 12/05/2021 8:37 AM EDT Images from the original note were not included. [facility] - Infectious Diseases Attending Progress Note Subjective: [...] normal. Behavior: Behavior normal. Labs: Recent Labs 12/03/2131012/04/2151012/05/21 0230 NA 137 138 135 K 4.2 4.9 4.3 CL 110* 105 105 CO2 21* 27 25 BUN 24* 22* 21* CREATININE 1.22 1.49* 1.26* GLUCOSE 96 106* 96 CALCIUM 9.7 10.4 10.2 Recent Labs 12/03/2131012/04/2151012/05/21 0230 WBC 7.8 10.1 10.4 HGB 14.6 [...] Radiography/Echo/Other: ACCESSION EXAM DATE/TIME PROCEDURE ORDERING PROVIDER [id number] 12/04/2021 10:28 EDT US Retroperitoneal 5813 -KIARA KAPOOR CPT code 43452 Reason For Exam (US Retroperitoneal Limited) R [...] plan of care expectations & antimicrobials. * Kiara Kapoor APRN - FARM EQUIPMENT SERVICE TECHNICIAN - 12/05/2021 8:13 AM EDT Images from the original note were not included. Hospitalist Progress Note 12/05/2021 [phone]: Please reach me on [facility] patient care issues. [phone]: Please page [facility] night Hospitalist for any issues. Subjective: Admit Date: 12/01/2021 PCP: Leanne Perales MD Room#: 158/1581 Interval History: No [...] loss Unspecified hypothyroidism LABS: CBC: Recent Labs 12/03/2131012/04/21 0511 12/05/21 0230 WBC 7.8 10.1 10.4 RBC 4.72 5.20 4.91 HGB 14.6 15.9 15.1 HCT 41.8 46.9 43.8 MCV 88.7 90.2 89.1 RDW 13.7 13.5 13.7 PLT 228 268 265 BMP: Recent Labs 12/03/2131012/04/21 0511 12/05/21 0230 NA 137 138 135 K [...] CNP Division of Hospitalist Medicine Inpatient Medical Services/[facility] * Sharon Escobedo RN - 12/05/2021 6:01 AM EDT Pt still does not want IV fluids running. Has been drinking water throughout the night. * Lorena Jama MD - 12/04/2021 10:30 AM EDT Images from the original note were not included. [facility] - Infectious Diseases Attending Progress Note Subjective: [...] normal. Behavior: Behavior normal. Labs: Recent Labs 12/02/2125312/03/2131012/04/21510 NA 134* 137 138 K 3.7 4.2 4.9 CL 107 110* 105 CO2 18* 21* 27 BUN 29* 24* 22* CREATININE 1.49* 1.22 1.49* GLUCOSE 99 96 106* CALCIUM 9.7 9.7 10.4 PROT 6.7 -- -- LABALBU 3.7 -- -- BILITOT 0.4 -- -- ALKPHOS 46 -- -- AST 24 -- -- ALT 16 -- -- Recent Labs 12/02/2125312/03/2131012/04/2111 WBC 8.6 7.8 10.1 HGB 14.3 14.6 [...] Radiography/Echo/Other: ACCESSION EXAM DATE/TIME PROCEDURE ORDERING PROVIDER [id number] 12/04/2021 10:28 EDT US Retroperitoneal KIARA BOB CPT code 75862 Reason For Exam (US Retroperitoneal Limited) R [...] plan of care expectations & antimicrobials. * Kiara Antwon, CY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 - 12/04/2021 9:24 AM EDT Images from the original note were not included. Hospitalist Progress Note 12/04/[id number]: Please reach me on Perfect Serve patient care issues. [phone]: Please page I[facility] night Hospitalist for any issues. Subjective: Admit Date: 12/01/2021 PCP: Leanne Perales MD Room#: 158/1581 Interval History: Pt [...] loss Unspecified hypothyroidism LABS: CBC: Recent Labs 12/02/2125312/03/2131012/04/21 0511 WBC 8.6 7.8 10.1 RBC 4.58 4.72 5.20 HGB 14.3 14.6 15.9 HCT 40.8 41.8 46.9 MCV 89.0 88.7 90.2 RDW 13.8 13.7 13.5 PLT 203 228 268 BMP: Recent Labs 12/02/2125312/03/2131012/04/21 0511 NA 134* 137 138 K 3.7 [...] ATB completed FELISHA Pool CNP [facility] Medicine Inpatient Medical Services/[facility] * Sharon Escobedo RN - 12/04/2021 7:21 AM EDT Pt [...] then stated, I would rather be in fdc then be here. Patient then began to speak of his who one year ago, and was a patient on this floor. Patient requesting to see Attending and Infectious Disease. Perfectserved Dr. Barlow and Dr. Jaam to notify of request. * Shane Barlow MD - 12/03/2021 7:04 AM EDT Images from the original note were not included. Hospitalist Progress Note 12/03/20216991057-4091: Please page me ([phone]) for patient care issues. [phone]: Please page [facility] night Hospitalist for any issues. Subjective: Admit Date: 12/01/2021 PCP: Leanne Perales MD Room#: 158/1581 Interval History: No [...] CBC: Recent Labs 12/01/21 1028 12/02/21 0254 12/03/21310 WBC 16.3* 8.6 7.8 RBC 5.18 4.58 4.72 HGB 15.8 14.3 14.6 HCT 45.8 40.8 41.8 MCV 88.5 89.0 88.7 RDW 13.6 13.8 13.7 PLT 255 203 228 BMP: Recent Labs 12/01/21 1028 12/02/21 0254 12/03/21 0311 NA 133* 134* 137 K 4.0 3.7 [...] - BMI 30.30 Plan -Patient presents to [facility] with complaints of ongoing right flank pain. Patient has had 2 urine cultures on 11/14 and 11/27/2021 consistent with ESBL E. coli. Initially placed on Macrobid and given an injection of gentamicin. Symptoms of not resolved and return to the ER for further evaluation. Started on IV meropenem and ID consulted. Changed to IV Ertapenem and advises 5 days (12/03/12/07). Patient had chest pain admission. Troponin was [...] that it is worse than being in fdc. Hada long conversation with him regarding the risks and benefits of leaving A. Explained to him why he needs to [...] Anticoagulation Advance Directive: Full Code Discharge planning: MARIANNA Barlow MD Division of Hospitalist Medicine Inpatient Medical Services/[facility] PAGER: [employer] * Sharon Escobedo RN - 12/02/2021 9:32 PM EDT Pt [...] pt is receiving outside foods from family ([employer], etc.). Appears the pt is currently not [...] I'm having my daughter bring me in [employer] RD provided emotionalsupport regarding pt's frustration. Nutrition [...] Anthropometric Measures: Height: 6' 2 (188 cm) [place] Body Weight (IBW): 190 lbs (86 kg) Current Body Weight: 236 lb (107 kg), IBW. Current BMI (kg/m2): 30.3 Usual Body Weight: 245 lb (111.1 kg) % Weight Change (Calculated): -3.7 Weight Adjustment For: No Adjustment BMI Categories: Obese Class 1 (BMI 30.0-34.9) Estimated Daily Nutrient Needs: Energy Requirements Based On: Kcal/kg Weight Used for Energy Requirements: [employer] (kcal/day): 2740-1849 (25-30 kcals/kg) Weight Used for Protein Requirements: [place] Protein (g/day): 86-103 (1.0-1.2g/kg) Method Used for [...] note were not included. Hospitalist Progress Note 12/02/[id number]: Please page me ([phone]) for patient care issues. [phone]: Please page [facility] night Hospitalist for any issues. Subjective: Admit Date: 12/01/2021 PCP: Leanne Perales MD Room#: 158/1581 Interval History: No [...] - BMI 30.30 Plan -Patient presents to [facility] with complaints of ongoing right flank pain. [...] MD Division of Hospitalist Medicine Inpatient Medical Services/[facility] PAGER: PER[facility] SERVE documented in this encounterSUMMA Work Phone: 1(902) 984-130310-11-2022 Hospital Discharge instructions* Discharge Instr - Other [...] to Dr. Chetan FLETCHER. documented in this encounterSUMMA Work Phone: 1(729) 294-877610-03-2022 Hospital Discharge instructions* Discharge Instructions* Tc Spence MD - 11/27/2021 11:20 PM EDT Can return here for fever/vomiting; mission support specialist antibiotic your doctor prescribed you * Attachments The following attachments cannot be sent through Care Everywhere. * Flank Pain (Cymro) documented in this encounterSUMMA Work Phone: Consult note Author Dana Gonzales [facility] February 13, 2023 3:56pm Note Date/Time February 13, 2023 3:56pm [facility] Medical Records Department [address] [place] [id number] Counseling Note - Pharmacy 02/13/23 1555 MR#: [id number] Acct: [id number] Name: CORRIE QUEEN Rep #:[id number] : 1960 62 From: Dana Gonzales PCP: CHERYL BASILIO Status:ADM TAMMY Y Location: [place] [address] [address] [facility] has performed discharge medication reconciliation [...] Signature (if applicable): Date CC: ~ Signed [facility] Work Phone: Evaluation + Plan note Future Appointments Appointment Date:01/09/2024 09:45:00 AM Scheduled Provider:BASIM RAMSEY MD Location:[facility] Appointment Type:ENDO OV Diagnostic Tests Pending * Testosterone,Free and Total 01/03/24 [facility] Evaluation + Plan note Future Appointments Appointment Date:04/21/2024 09:00:00 AM Scheduled Provider: Location:[facility] Appointment Type:ENDO Nurse Diagnostic Tests [...] Level 08/14/24 * Complete Metabolic Panel 04/16/24 [facility] Evaluation note* Diagnosis Macroprolactinoma (HCC) Benign neoplasm [...] Pyelonephritis Pyelonephritis, unspecified Infection due to extended-spectrum ffnk-unaadfzid-wonsehuoc Escherichia coli Other and unspecified Escherichia coli (E. coli) Sepsis due to Escherichia coli with acute renal failure without septic shock (HCC) Unspecified abdominal pain documented in this encounter [facility] Work Phone: Evaluation note* Diagnosis Right flank pain- Primary Abdominal pain, unspecified site documented in this encounter [facility]* Diagnosis Combined arterial insufficiency and corporo-venous occlusive erectile dysfunction- Primary documented in this encounter [facility]* Diagnosis Combined arterial insufficiency and corporo-venous occlusive erectile dysfunction- Primary [facility] in this encounter [facility]* Diagnosis Recurrent UTI- Primary Urinary tract infection, site not specified Dysuria Urinary frequency Urinary urgency Urgency of urination Chronic right-sided low back pain without sciatica Leukocytes in urine Other nonspecific finding on examination of urine Hematuria, unspecified type [facility] Diagnosis Recurrent UTI- Primary Urinary tract infection, site not specified Dysuria Urinary frequency Urinary urgency Urgency of urination Chronic right-sided low back pain without sciatica Leukocytes in urine Other nonspecific finding on examination of urine Hematuria, unspecified type [facility]* Diagnosis Urinary tract infection symptoms- Primary [facility]* Diagnosis Acute cystitis without hematuria- Primary [facility]* Diagnosis Pleural effusion- Primary Unspecified pleural effusion History of tobacco abuse Centrilobular emphysema (HCC) [facility]* Diagnosis Complex renal cyst Other specified congenital cystic kidney disease [facility]* Diagnosis Recurrent UTI- Primary Urinary tract infection, site not specified Benign prostatic hyperplasia without lower urinary tract symptoms [facility]* Diagnosis Leg swelling- Primary Swelling of limb Acute deep vein thrombosis (DVT) of left lower extremity, unspecified vein (HCC) [facility]* Diagnosis Acute deep vein thrombosis (DVT) of left lower extremity, unspecified vein (HCC)- Primary Acute deep vein thrombosis (DVT) of left lower extremity, unspecified vein (HCC) Ambulatory dysfunction [facility]* Diagnosis Acute deep vein thrombosis (DVT) of left lower extremity, unspecified vein (HCC)- Primary Acute deep vein thrombosis (DVT) of left lower extremity, unspecified vein (HCC) documented [facility]* Diagnosis Acute deep vein thrombosis (DVT) of left lower extremity, unspecified vein (HCC) [facility]* Diagnosis Acute deep vein thrombosis (DVT) of left lower extremity, unspecified vein (HCC)- Primary documented [facility]* Diagnosis Deep vein thrombosis (DVT) of proximal vein of left lower extremity, unspecified chronicity (HCC)- Primary [facility]* Diagnosis Flank pain- Primary Abdominal pain, unspecified site 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) [facility] Diagnosis Flank pain- Primary Abdominal pain, unspecified site 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) [facility] Diagnosis Right flank pain Abdominal pain, unspecified site 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) [facility] Diagnosis Acute right flank pain- Primary 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) [facility]* Diagnosis Sebaceous cyst of left eyelid- Primary [facility]* Diagnosis Bleeding- Primary Unspecified hemorrhage [facility] Diagnosis Chronic deep vein thrombosis (DVT) of iliofemoral vein (HCC)- Primary [facility]* Diagnosis 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) [facility] Diagnosis Macroprolactinoma (HCC)- Primary Benign neoplasm of pituitary gland and craniopharyngeal duct (pouch) Pituitary adenoma (HCC) 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 Hypercalcemia [facility] Diagnosis Hypogonadism in male- Primary [facility]* Diagnosis 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) [facility]* Diagnosis Onset Date Resolution Status Ileofemoral deep vein thrombosis 2022 acute [facility] Work Phone: Evaluation note* Diagnosis Onset Date Resolution Status Ileofemoral deep vein thrombosis 2022 acute Ileofemoral deep vein thrombosis 2022 acute [facility] Work Phone: Evaluation note* Diagnosis Onset Date Resolution Status Deep vein thrombosis (DVT) o f iliac vein of left lower extremity chronic BPH (benign prostatic hyperplasia) acute Elevated blood pressure reading acute Fatty liver acute High cholesterol acute History of diverticulitis ac [place] History of renal disease acu te Pituitary abnormality acute Smoker acute Thyroid disease acute Deep vein thrombosis (DVT) o f iliac vein of left lower extremity chronic [facility] Work Phone: Evaluation note* Diagnosis Onset Date Resolution Status Deep vein thrombosis (DVT) o f iliac vein of left lower extremity chronic BPH (benign prostatic hyperplasia) acute Elevated blood pressure reading acute Fatty liver acute High cholesterol acute History of diverticulitis ac [place] History of renal disease acu te Pituitary abnormality acute Smoker acute Thyroid disease acute Deep vein thrombosis (DVT) o f iliac vein of left lower extremity chronic Flank pain acute History of renal disease acu te [facility] Work Phone: Evaluation note* Diagnosis Onset Date Resolution Status Ileofemoral deep vein thrombosis 2022 acute Ileofemoral deep vein thrombosis 2022 acute Deep vein thrombosis (DVT) o f iliac vein of left lower extremity chronic BPH (benign prostatic hyperplasia) acute Elevated blood pressure reading acute Fatty liver acute High cholesterol acute History of diverticulitis ac [place] History of renal disease acu te Pituitary abnormality acute Smoker acute Thyroid disease acute Deep vein thrombosis (DVT) o f iliac vein of left lower extremity chronic Flank pain acute History of renal disease acu te Flank pain acute Ileofemoral deep vein thrombosis 2022 acute [facility] Work Phone: Evaluation note* Diagnosis Onset Date Resolution Status Ileofemoral deep vein thrombosis 2022 acute Ileofemoral deep vein thrombosis 2022 acute Deep vein thrombosis (DVT) o f iliac vein of left lower extremity chronic BPH (benign prostatic hyperplasia) acute Elevated blood pressure reading acute Fatty liver acute High cholesterol acute History of diverticulitis ac [place] History of renal disease acu te Pituitary abnormality acute Smoker acute Thyroid disease acute Deep vein thrombosis (DVT) o f iliac vein of left lower extremity chronic Flank pain acute History of renal disease acu te Flank pain acute Ileofemoral deep vein thrombosis 2022 acute Flank pain acute [facility] Work Phone: Evaluation note* Diagnosis Onset Date Resolution Status Ileofemoral deep vein thrombosis 2022 acute Deep vein thrombosis (DVT) o f iliac vein of left lower extremity chronic BPH (benign prostatic hyperplasia) acute Elevated blood pressure reading acute Fatty liver acute High cholesterol acute History of diverticulitis ac [place] History of renal disease acu te Pituitary abnormality acute Smoker acute Thyroid disease acute Deep vein thrombosis (DVT) o f iliac vein of left lower extremity chronic Flank pain acute History of renal disease acu te Flank pain acute Ileofemoral deep vein thrombosis 2022 acute Flank pain acute [facility] Work Phone: Evaluation note* Diagnosis Onset Date Resolution Status Deep vein thrombosis (DVT) o f iliac vein of left lower extremity chronic BPH (benign prostatic hyperplasia) acute Elevated blood pressure reading acute Fatty liver acute High cholesterol acute History of diverticulitis ac [place] History of renal disease acu te Pituitary abnormality acute Smoker acute Thyroid disease acute Deep vein thrombosis (DVT) o f iliac vein of left lower extremity chronic Flank pain acute History of renal disease acu te Flank pain acute Ileofemoral deep vein thrombosis 2022 acute Flank pain acute [facility] Work Phone: Evaluation note* Diagnosis Pituitary adenoma (HCC)- Primary Benign neoplasm of pituitary gland and craniopharyngeal duct (pouch) Hypercalcemia 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) Other anterior pituitary disorders [facility] Diagnosis Hypogonadism in male 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) [facility]* Diagnosis Pituitary adenoma (HCC) Benign neoplasm of pituitary gland and craniopharyngeal duct (pouch) documented [facility] this encounter [facility]* Diagnosis Acute cystitis without hematuria- Primary Flank pain Abdominal pain, unspecified site Essential hypertension, benign [facility]* Diagnosis Acute cystitis without hematuria- Primary Flank pain Abdominal pain, unspecified site Essential hypertension, benign [facility]* Diagnosis Acute right-sided low back pain without sciatica- Primary Right flank pain Abdominal pain, unspecified site [facility] Diagnosis Complex renal cyst- Primary Other specified congenital cystic kidney disease [facility] Diagnosis Right flank pain- Primary Abdominal pain, unspecified site Acute right-sided low back pain without sciatica [facility] Diagnosis Right flank pain- Primary Abdominal pain, unspecified site Acute right-sided low back pain without sciatica documented in this encounter [facility] Narrative No data available for this section [facility] Discharge instructions No data available for this section [facility] Progress note No data available for this section [facility] Reason for referral (narrative)* Consultation (Routine) - Closed Specialty Diagnoses / Procedures Referred By Juan t Referred To Contact Vascular Surgery Diagnoses Acute deep vein thrombosis (DVT) of left lower extremity, unspecified vein (HCC) Procedures MT OFFICE/OUTPATIENT NEW HIGH MDM 60-74 MINUTES Cheryl Basilio MD [address] [place] [address] [facility] [address] [place] [address] Referral ID Status Reason Start Date Expiration Date V isits Requested Visits Authorized [id number] Closed Specialty Services Required 12/03/2022 12/03/2023 1 1 [facility] Health Assessments Diagnosis Primary hyperparathyroidism (HCC) Primary hyperparathyroidism Prolactin secreting pituitary adenoma (HCC) 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 Advance Directives No Advanced Directives Records FoundDocuments on File Type Date Recorded Patient Insurance Marketing Rep Expl anation Advance Directives and Living Will Power of [employer] Latest Code Status on File Code Status [...] February 06, 2 023 8:38am Power of [employer] No February 06, 2023 8:38am Advance Directive Response Recorded Date/ Time Living Will No February 06, 2 023 9:38am Power of [employer] No February 06, 2023 9:38am Date Activated Date Inactivated Comments 12/25/2022 8:25 AM 12/25/2022 7:01 PM Date Activated Date Inactivated Comments 10/13/2022 4:25 AM 10/16/2022 6:08 PM Date Activated Date Inactivated Comments 09/18/2022 1:19 AM 09/23/2022 3:25 PM Advance Directive Response Recorded Date/ Time Do you have a Healthcare Power of [employer]? No August 02, 2024 9:10am Summary Purpose Family History No Family History Records FoundNo Family History Records FoundNo Family History Records FoundNo Family History Records Found No data available for this section No data available for this section No Family History Records FoundNo Family History Records Found Reason for Referral Specialty Diagnoses / Procedures Referred By Juan t Referred To Contact Radiology Diagnoses History of tobacco abuse Centrilobular emphysema (HCC) Pleural effusion Procedures CT lung screening low dose [facility] Ad[facility], DO [address] [place] [address] Referral ID Status Reason Start Date Expiration Date V isits Requested Visits Authorized [id number] Pending Review 10/10/2022 04/08/2023 1 1 Specialty Diagnoses / Procedures Referred By Contac t Referred To Contact Diagnoses History of tobacco abuse Centrilobular emphysema (HCC) Procedures Complete PFT pre and post bronchodilator [facility] Adrien[facility]r, DO [address] [place] [id number] Referral ID Status Reason Start Date Expiration Date V isits Requested Visits Authorized [id number] Incomplete 10/10/2022 04/08/2023 1 1 Specialty Diagnoses / Procedures Referred By Contac t Referred To Contact Diagnoses Benign prostatic hyperplasia without lower urinary tract symptoms Cheryl Basilio MD [address] [address] Referral ID Status Reason Start Date Expiration Date V isits Requested Visits Authorized [id number] Pending Review 1 1 Specialty Diagnoses / Procedures Referred By Contac t Referred To Contact Pacheco Negron MD [address] [place] [address] Referral ID Status Reason Start Date Expiration Date V isits Requested Visits Authorized [id number] Pending Review 1 1 Specialty Diagnoses / Procedures Referred By Contac t Referred To Contact Cardiology Diagnoses Acute deep vein thrombosis (DVT) of left lower extremity, unspecified vein (HCC) Procedures Vascular US lower extremity venous duplex bilateral Cheryl Basilio MD 155 [facility] [address] [place] [address] [facility] [address] [place] [address] Referral ID Status Reason Start Date Expiration Date Visits Re quested Visits Authorized [id number] Closed 11/14/2022 05/13/2023 1 1 Specialty Diagnoses / Procedures Referred By Contac t Referred To Contact Radiology Diagnoses Pituitary adenoma (HCC) Procedures MR pituitary w and wo IV contrast Rocio Calix MD [address] [place] [address] Referral ID Status Reason Start Date Expiration Date V isits Requested Visits Authorized [id number] Pending Review 07/31/2023 07/30/2024 1 1 Referral ID Status Reason Start Date Expiration Date Visits Re quested Visits Authorized [id number] Closed 07/31/2023 07/30/2024 1 1 Specialty Diagnoses / Procedures Referred By Contac t Referred To Contact Radiology Diagnoses Right flank pain Acute right-sided low back pain without sciatica Procedures CT lumbar spine wo IV contrast Leanne Perales MD [address] [place] [address] [place] [address] Referral ID Status Reason Start Date Expiration Date V isits Requested Visits Authorized [id number] Pending Review 03/06/2022 09/02/2022 1 1 Specialty Diagnoses / Procedures Referred By Contac t Referred To Contact Physical Therapy Diagnoses Right flank pain Acute right-sided low back pain without sciatica Procedures MT OFFICE/OUTPATIENT NEW HIGH MDM 60-74 MINUTES Leanne Perales MD [address] [place] [address] [place] [address] [facility] [address] [place] [address] Referral ID Status Reason Start Date Expiration Date Visits Requested Visits Authorized [id number] Pending Review Eval and Treat 03/27/2022 09/23/2022 [...] [facility] PT - [place] Februa 2024 10:21am LEFT LEG SWELLING April 13, [...] MD Attending Provider, Referring Pro vider Active KJ LUNA Primary Care Provider Active Team Status: Active Member Role Status Dates Dr. Ryan Ceja MD Attending Provider, Referring Pro vider Active KJ LUNA Primary Care Provider Active Team Status: Active Member Role Status Dates RUBI Casillas Primary Care Provider Active Team Status: Active Member Role Status Dates Dr. Ryan Ceja MD Attending Provider, Referring Pro vider Active Team Status: Active Member Role Status Dates Dr. Ryan Ceja MD Admit Provider, Att ending Provider, Referring Provider, Other Provider Active KJ LUNA Primary Care Provider Active Dr. Fabio Day MD Other Provider Active Team Status: Active Member Role Status Dates Dr. Ryan Ceja MD Admit Provider, Ref erring Provider, Other Provider Active KJ LUNA Primary Care Provider Active Dr. Fabio [...] Provider, Att ending Provider, Referring Provider Active KJ LUNA Primary Care Provider Active Dr. Fabio Day MD Other Provider Active Team Status: Inactive Member Role Status Dates RUBI Casillas Primary Care Provid er, Attending Provider, Referring Provider Active Machine Cutter Relationship Specialty Start Date End [place] [address] PCP - General 11/12/15 Machine Cutter Relationship Specialty Start Date End Date Le[facility] [place] [facility] [place] [address] PCP - General 11/12/15 Machine Cutter Relationship Specialty Start Date End Date [facility] [place] [address] PCP - General 11/12/15 Machine Cutter Relationship Specialty Start Date End Date [place] [address] PCP - General 11/12/15 Machine Cutter Relationship Specialty Start Date End Date Leanne Perales [place] [facility] [place] [address] PCP - General 11/12/15 Machine Cutter Relationship Specialty Start Date End Date Leanne Perales [place] [facility] [place] [address] PCP - General 11/12/15 Machine Cutter Relationship Specialty Start Date End Date Leanne Perales [place] [facility] [place] [address] PCP - General 11/12/15 Machine Cutter Relationship Specialty Start Date End Date Leanne Perales MD [address] [place], [place] [address], [place] [address] PCP - General 11/12/15 Machine Cutter Relationship Specialty Start Date End Date Leanne Perales MD [address] [place], [place] [address], [place] [address] PCP - General 11/12/15 Machine Cutter Relationship Specialty Start Date End Date Leanne Perales MD [address] [place], [place] [address], [place] [address] PCP - General 11/12/15 Machine Cutter Relationship Specialty Start Date End Date Leanne Perales MD [address] [place] [address], [place] [address] PCP - General 11/12/15 Machine Cutter Relationship Specialty Start Date End Date Leanne Perales MD [address] [facility] [address] PCP - General 11/12/15 Machine Cutter Relationship Specialty Start Date End Date Leanne Perales MD 25 [facility] [place] [address] PCP - General 11/12/15 Machine Cutter Relationship Specialty Start Date End Date Leanne Perales MD 25 [place] [address] PCP - General 11/12/15 Machine Cutter Relationship Specialty Start Date End Date Leanne Perales MD 25 [place] [address] PCP - General 11/12/15 Machine Cutter Relationship Specialty Start Date End Date Leanne Perales MD [address] [facility] [address] PCP - General 11/12/15 Machine Cutter Relationship Specialty Start Date End Date Leanne Perales MD 25 [facility] [place] [address] PCP - General 11/12/15 Machine Cutter Relationship Specialty Start Date End Date Leanne Perales MD 25 [facility] [place] [address] PCP - General 11/12/15 Machine Cutter Relationship Specialty Start Date End Date Leanne Perales MD 25 [facility] [place] [address] PCP - General 11/12/15 10/15/22 Cheryl Basilio MD [address] [facility] [address] [place] [address] PCP - General Internal Medicine 10/16/22 Machine Cutter Relationship Specialty Start Date End Date Leanne Perales MD 25 [facility] [place] [address] PCP - General 11/12/15 10/15/22 Cheryl Basilio MD [address] [facility] [address] [place] [address] PCP - General Internal Medicine 10/16/22 Machine Cutter Relationship Specialty Start Date End Date Cheryl Basilio MD [address] [facility] [address] [place] [address] PCP - General Internal Medicine 10/16/22 Machine Cutter Relationship Specialty Start Date End Date Cheryl Basilio MD [address] [facility] [address] [place] [address] PCP - General Internal Medicine 10/16/22 Machine Cutter Relationship Specialty Start Date End Date Cheryl Basilio MD [address] [facility] [address] [place] [address] PCP - General Internal Medicine 10/16/22 Machine Cutter Relationship Specialty Start Date End Date Cheryl Basilio MD [address] [facility] [address] [place] [address] PCP - General Internal Medicine 10/16/22 Machine Cutter Relationship Specialty Start Date End Date Cheryl Basilio MD [address] [facility] [address] [place] [address] PCP - General Internal Medicine 10/16/22 Machine Cutter Relationship Specialty Start Date End Date Cheryl Basilio MD [address] [place] [address] 106 [place] [address] PCP - General Internal Medicine 10/16/22 Machine Cutter Relationship Specialty Start Date End Date Cheryl Basilio MD [address] [place] [address] [address] [place] [address] PCP - General Internal Medicine 10/16/22 Machine Cutter Relationship Specialty Start Date End Date Cheryl Basilio MD [address] [place] [address] PCP - General Internal Medicine 10/16/22 Machine Cutter Relationship Specialty Start Date End Date Cheryl Basilio MD [address] [place] [address] PCP - General Internal Medicine 10/16/22 Ziggy Arauz MD [address] [place] [address] [place] [address] Consulting Physician Vascular Surgery 12/10/22 Machine Cutter Relationship Specialty Start Date End Date Cheryl Basilio MD [address] [place] [address] [address] [place] [address] PCP - General Internal Medicine 10/16/22 Ziggy Arauz MD [address] [place] [address] [place] [address] Consulting Physician Vascular Surgery 12/10/22 Machine 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 Relationship Specialty Start Date End Date Cheryl Basilio MD [address] [place] [address] [address] [place] [address] PCP - General Internal Medicine 10/16/22 Ziggy Arauz MD [address] [place] [address] [place] [address] Consulting Physician Vascular Surgery 12/10/22 Machine Cutter Relationship Specialty Start Date End Date Cheryl Basilio MD [address] [place] [address] 106 [place] [address] PCP - General Internal Medicine 10/16/22 Ziggy Arauz MD [address] [place] [address] [place] [address] Consulting Physician Vascular Surgery 12/10/22 Machine 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 Relationship Specialty Start Date End Date Cheryl Basilio MD [address] [place] [address] [address] [place] [address] PCP - General Internal Medicine 10/16/22 Ziggy Arauz MD [address] [place] [address] [place] [address] Consulting Physician Vascular Surgery 12/10/22 Machine Cutter Relationship Specialty Start Date End Date Cheryl Basilio MD [address] [place] [address] [address] [place] [address] PCP - General Internal Medicine 10/16/22 Ziggy Arauz MD 95 [facility] [address] [place] [address] Consulting Physician Vascular Surgery 12/10/22 Machine Cutter Relationship Specialty Start Date End Date Cheryl Basilio MD [address] [facility] [address] [place] [address] PCP - General Internal Medicine 10/16/22 Ziggy Arauz MD [address] [facility] [address] [place] [address] Consulting Physician Vascular Surgery 12/10/22 Machine Cutter Relationship Specialty Start Date End Date Cheryl Basilio MD [address] [facility] [address] [place] [address] PCP - General Internal Medicine 10/16/22 Ziggy Arauz MD [address] [place] [address] [place] [address] Consulting Physician Vascular Surgery 12/10/22 Machine Cutter Relationship Specialty Start Date End Date Cheryl Basilio MD [address] [place] [address] [address] [place] [address] PCP - General Internal Medicine 10/16/22 Ziggy Arauz MD 95 [facility] [address] [place] [address] Consulting Physician Vascular Surgery 12/10/22 Machine Cutter Relationship Specialty Start Date End Date Cheryl Basilio MD [address] [facility] [address] [place] [address] PCP - General Internal Medicine 10/16/22 Ziggy Arauz MD [address] [facility] [address] [place] [address] Consulting Physician Vascular Surgery 12/10/22 Machine Cutter Relationship Specialty Start Date End Date Cheryl Basilio MD [address] [place] [address] PCP - General Internal Medicine 10/16/22 Ziggy Arauz MD [address] [place] [address] Consulting Physician Vascular Surgery 12/10/22 Machine Cutter Relationship Specialty Start Date End Date Cheryl Basilio MD [address] [facility] [address] [place] [address] PCP - General Internal Medicine 10/16/22 Ziggy Arauz MD [address] [place] [address] Consulting Physician Vascular Surgery 12/10/22 Machine Cutter Relationship Specialty Start Date End Date Cheryl Basilio MD [address] [facility] [address] [place] [address] PCP - General Internal Medicine 10/16/22 Ziggy Arauz MD [address] [place] [address] Consulting Physician Vascular Surgery 12/10/22 Machine Cutter Relationship Specialty Start Date End Date Cheryl Basilio MD [address] [facility] [address] [place] [address] PCP - General Internal Medicine 10/16/22 Ziggy Arauz MD [address] [place] [address] Consulting Physician Vascular Surgery 12/10/22 Machine Cutter Relationship Specialty Start Date End Date Cheryl Basilio MD [address] [facility] [address] [place] [address] PCP - General Internal Medicine 10/16/22 Ziggy Arauz MD [address] [place] [address] Consulting Physician Vascular Surgery 12/10/22 Machine Cutter Relationship Specialty Start Date End Date Cheryl Basilio MD [address] [facility] [address] [place] [address] PCP - General Internal Medicine 10/16/22 Ziggy Arauz MD [address] [place] [address] Consulting Physician Vascular Surgery 12/10/22 Machine Cutter Relationship Specialty Start Date End Date Cheryl Basilio MD PCP - General Internal Medicine 10/16/22 Ziggy Arauz MD [address] [place] [address] Consulting Physician Vascular Surgery 12/10/22 Machine Cutter Relationship Specialty Start Date End Date Cheryl Basilio MD [address] [place] [address] PCP - General Internal Medicine 04/30/23 Ziggy Arauz MD [address] [place] [address] Consulting Physician Vascular Surgery 12/10/22 Team Status: Inactive Member Role Status Dates Yolanda SHAFFER, PA Attending Provider Active Sanjana Hale NP-C Primary Care Provider, Referring Provider Active Team Status: Inactive Member Role Status Dates Sanjana Hale NP-C Primary Care Provider Active Yolanda Vivar PA, PA Attending Provider Active Team Status: Active Member Role Status Dates KANDY CasillasC Primary Care Provider Active Dr. Bull Lopez MD Attending Provider, Referr ing Provider Active Team Status: Inactive Member Role Status Dates RUBI Casillas Primary Care Provider Active Dr. Bull Lopez MD Attending Provider, Referr ing Provider Active Team Status: Active Member Role Status Dates Sanjana Hale NP-C Primary Care Provid er, Attending Provider, Referring Provider Active Machine Cutter Relationship Specialty Start Date End Date Silvestre Sexton [address] [place] [phone] PCP - General Internal Medicine 07/31/23 Ziggy Arauz MD [address] [place], [place] [address] Consulting Physician Vascular Surgery 12/10/22 Machine Cutter Relationship Specialty Start Date End Date Silvestre Sexton [address] [place] [phone] PCP - General Internal Medicine 07/31/23 Ziggy Arauz MD [address] [place], [place] [address] Consulting Physician Vascular Surgery 12/10/22 Machine Cutter Relationship Specialty Start Date End Date Silvestre Sexton [address] [place] [phone] PCP - General Internal Medicine 07/31/23 Ziggy Arauz MD [address] [place], [place] [address] Consulting Physician Vascular Surgery 12/10/22 Machine Cutter Relationship Specialty Start Date End Date [facility] [place] [address] PCP - General 11/12/15 Machine Cutter Relationship Specialty Start Date End Date Leanne Perales MD 25 [facility] [place] [address] PCP - General 11/12/15 Machine Cutter Relationship Specialty Start Date End Date Leanne Perales MD 25 [place] [place] [address] PCP - General 11/12/15 Machine Cutter Relationship Specialty Start Date End Date Leanne Perales MD 25 [place] [place] [address] PCP - General 11/12/15 Machine Cutter Relationship Specialty Start Date End Date Leanne Perales MD 25 [facility] [place] [address] PCP - General 11/12/15 Machine Cutter Relationship Specialty Start Date End Date Leanne Perales MD 25 [facility] [place] [address] PCP - General 11/12/15 Machine Cutter Relationship Specialty Start Date End Date Leanne Perales MD 25 [facility] [place] [address] PCP - General 11/12/15 Machine Cutter Relationship Specialty Start Date End Date Leanne Perales MD 25 [facility] [place] [address] PCP - General 11/12/15 Machine Cutter Relationship Specialty Start Date End Date Leanne Perales MD 25 [place] [place] [address] PCP - General 11/12/15 Team Status: Active Member Role Status Dates Dr. Justice Bailey DO Primary Care Provider Active Team Status: Inactive Member Role Status Dates Sanjana Hale UNIX SYSTEMS ADMINISTRATOR-C Primary Care Provider Active Start: February 25, 2024 End: February 25, 2024 Sanjanajazzy Gillvaibhav UNIX SYSTEMS ADMINISTRATOR-C Referring Provider Active S tart: February 25, 2024 End: February 25, 2024 David SHAFFER, PA Attending Provider Active Start: February 25, 2024 End: February 25, 2024 Team Status: Inactive Member Role Status Dates Sanjana Hale UNIX SYSTEMS ADMINISTRATOR-C Primary Care Provider Active Start: March 18, 2024 End: March 18, 2024 Sanjana Hale UNIX SYSTEMS ADMINISTRATOR-C Referring Provider Active S tart: March 18, 2024 End: March 18, 2024 EDMUND Jovel Attending Provider Active Star t: March 18, 2024 End: March 18, 2024 Team Status: Inactive Member Role Status Dates Sanjana Jairovaibhav UNIX SYSTEMS ADMINISTRATOR-C Referring Provider Active S tart: March 31, [...] Care Provider Active Start: May 14, 2024 Yolanda SHAFFER PA Attending Provider Active St art: May 14, [...] 2024 End: May 28, 2024 Team Status: Active Member Role Status Dates Dr. Justice Bailey DO Primary Care Provider Active Start: July 01, 2024 Estefany Gonzalez MA Attending Provider Acti ve Start: July 01, 2024 Team Status: Inactive Member Role Status Dates Dr. Justice Bailey DO Primary Care Provider Active Start: July 17, 2024 End: July 17, 2024 Dr. Justice Bailey DO Referring Provider Active Start: July 17, 2024 End: July 17, 2024 Dr. Franky Brewer MD Attending Provider Active Sta rt: July 17, 2024 End: July 17, 2024 Team Status: Inactive Member Role Status Dates Dr. Justice Bailey DO Primary Care Provider Active Start: August 02, 2024 End: August 02, 2024 Dr. Rusty Hawkins DO Emergency Provider Active S tart: August 02, 2024 End: August 02, 2024 Team Status: Inactive Member Role Status Dates Dr. Justice Bailey DO Primary Care Provider Active Start: August 02, 2024 End: August 02, 2024 Dr. Rusty Hawkins DO Attending Provider Active S tart: August 02, 2024 End: August 02, 2024 Dr. Rusty Hawkins , Emergency Provider Active S tart: August 02, 2024 End: August 02, 2024 Team Status: Inactive Member Role Status Dates Dr. Justice Bailey DO Primary Care Provider Active Start: August 11, 2024 End: August 11, 2024 Dr. Justice Bailey DO Attending Provider Active Start: August 11, 2024 End: August 11, 2024 Dr. Justice Bailey , DO Referring Provider Active Start: August 11, 2024 End: August 11, 2024 Reason for Visit (unrecogniz ed section [...] sciatica Procedures CT abdomen pelvis w contrast Leanne Perales MD 25 [facility], [facility] [place] [address] Referral ID Status Reason Start Date Expiration Date V isits Requested Visits Authorized [id number] Authorized 08/29/2022 02/25/2023 1 1 Reason Comments COPD Reason Comments New Patient Est care Reason Comments Leg Pain Reason Onset Date Comments ER Follow-up 10/15/2022 Reason Comments Leg Pain Specialty Diagnoses / Procedures Referred By Contac t Referred To Contact Diagnoses Ambulatory dysfunction Acute deep vein thrombosis (DVT) of left lower extremity, unspecified vein (HCC) Procedures . Yared Allison MD [address] [address] [facility] Telemetry [address] [place] [address] Referral ID Status Reason Start Date Expiration Date Visits Re quested Visits Authorized [id number] 1 1 Reason Onset Date Comments Med [...] venous duplex bilateral Cheryl Basilio MD [address] [facility] [address] [place] [address] [facility] [address] [place] [address] Referral ID Status Reason Start Date Expiration Date Visits Re quested Visits Authorized [id number] Closed 11/14/2022 05/13/2023 1 1 Reason Onset [...] Vascular US IVC iliac vein duplex complete Ziggy Arauz MD [address] [place] [address] Referral ID Status Reason Start Date Expiration Date Visits Re quested Visits Authorized [id number] Closed 12/10/2022 06/08/2023 1 1 Reason Onset [...] of unspecified iliac vein (HCC) [I82.529] Procedures MT PRQ TRANSLUMINAL MECHANICAL THROMBECTOMY VEIN MT OPEN/PERQ PLACEMENT INTRAVASCULAR STENT SAME 1ST LEFT ILIOFEMORAL DEEP VEIN THROMBOSIS, THROMBECTOMY AND STENTING TRANSCATHETER PLACEMENT OF AN INTRAVASCULAR STENT(S), OPEN OR PERCUTANEOUS INITIAL VEIN Ziggy Arauz MD [address] [place] [id number] [address] [place] [address] Referral ID Status Reason Start Date Expiration Date Visits Re quested Visits Authorized [id number] 1 1 Reason Comments Post-op Problem Surgery [...] Referred By Juan t Referred To Contact Radiology Diagnoses Pituitary adenoma (HCC) Procedures MR pituitary w and wo IV contrast Rocio Calix MD [address] [facility] [address] [place] [address] Referral ID Status Reason Start Date Expiration Date Visits Re quested Visits Authorized [id number] Closed 07/31/2023 07/30/2024 1 1 Reason Comments [...] (Synthroid, Levoxyl) 100 MCG tablet [id number] - [place], [place] - [address] Pt leaving to go out of state [...] Hoff RN) 0002 (Stopped - Provider: Felicia Hoff, GARY) HYDROcodone-acetaminophen (NORCO) 5-325 MG per tablet 1 [...] per day on Sat), First dose on 12/02/21 at 0900, Until Discontinued, Non-formulary medication. Physically [...] 1335, Until Discontinued, Indication of Use: Prophylaxis-DVT/PE 09 (Given - Provider: Nallely Villegas RN) ertapenem (INVanz) 1,000 mg in sodium chloride 0.9 % 50 mL IVPB 1,000 mg, IntraVENous, EVERY 24 HOURS, 5 doses, First dose on 12/03/21 at 0600, Last dose on Lorenza 12/07/21 at 0600, Incompatible with dextrose containing solutions. 0518 (New Bag - Provider: Sharon Escobedo RN)0558 (Stopped - Provider: Sharon Escobedo RN) 0557 (New Bag - Provider: Sharon Escobedo RN)0652 (Stopped - Provider: Sharon Escobedo RN) 0611 (New Bag - Provider: Sierra Barahona RN)0642 (Stopped - Provider: Sierra Barahona RN) fenofibrate (TRIGLIDE) tablet 160 mg 160 mg, Oral, DAILY, First dose on 12/02/21 at 0900, Until Discontinued, Substituted for Fenofibrate (Non-Formulary Dose). 155 (Not Given - Provider: Nallely Villegas RN [...] this morning) 0900 (Not Given - Provider: Nlalely Villegas RN - Reason: Patient/family refused - Comment: Patient taking his levothyoxine from home) 0942 (Not Given - Provider: Pearl Danielle RN - Reason: Patient/family refused - Comment: took own meds in am) melatonin capsule 10 mg 10 mg, Oral, NIGHTLY, First dose on 12/02/21 at 0230, Until Discontinued 2127 (Given - Provider: Sharon Escobedo, RN) 2105 (Given - Provider: Sierra Barahona, GARY) 2100 (Due) nicotine (NICODERM CQ) 21 MG/24HR [...] Nallely Villegas RN)2128 (Given - Provider: Sharon Escobedo RN) 1100 (Not Given - Provider: Nallely [...] used. 0511 (See Alternative - Provider: Sharon Escobedo RN) acetaminophen (TYLENOL) tablet 650 mg(Linked Group 1) 650 mg, Oral, EVERY 6 HOURS PRN, Starting on Sat12/01/21 at 1332, Until Discontinued, Pain Mild (1-3), Fever, For temp greater than 100.4 F (38 C), Maximum dose of acetaminophen is 4000 mg from all sources in 24 hours. 0511 (Given - Provider: Sharon Escobedo RN) ipratropium-albuterol (DUONEB) nebulizer solution 1 ampule [...] dose 1352 (Given - Provid er: Lauren DelA ngel RN) oxyCODONE-acetaminophen (Percocet) 5-325 MG per tablet [...] Monique Souza, GARY)1735 (Given - Provider: Nasra Bass RN) 0500 (Given - Provider: Monique Souza, GARY)1800 [...] (See Alternative - Provider: Monique Souza RN) HYDROmorphone (Dilaudid) injection 0.5 mg 0.5 mg, [...] Comment: post ambulation)2134 (Given - Provider: Monique Souza, GARY) magnesium hydroxide (Milk of Magnesia) 400 MG/5ML suspension 30 mL 30 mL, Oral, 2 times daily PRN, constipation, Starting on 10/14/22 at 1159, Follow dose with 8 oz of water. 1441 (Given - Provider: Angela Harris, GARY) Melatonin disintegrating tablet 10 mg(Linked Group 2) [...] 24 hours. 0012 (Given - Provider: Monique Souza RN)0620 (Given - Provider: Alejandra Blanco LPN)1227 (Given - Provider: Angela Harris RN)1823 (Given - Provider: Angela Harris RN) 0549 (Given - Provider: Monique Souza, GARY)1734 (Given - Provider: Nasra Bass RN)2240 (Given - Provider: Monique Souza RN) 0500 (Given - Provider: Monique Souza RN)1104 [...] this does not improve please contact your manager er 1645 (Due)2200 (Due) famotidine (Pepcid) tablet 20 [...] does not have iv access. 0854 (New Bag - Prov ider: Disha Chen RN) PRN Medication Order [...] 1243, Intraprocedure 1243 (Given - Provid er: Ziggy Arauz MD) hydrALAZINE (Apresoline) injection 5 mg(Linked [...] on Sat12/25/22 at 1402, Intraprocedure 1402 (New Bag - Prov ider: Ziggy Arauz MD) labetalol (Normodyne,Trandate) injection 5 mg(Linked [...] section and content) DATE CREATED AUTHOR 12/01/2021 [employer] DATE CREATED AUTHOR AUTHOR'S ORGANIZ ATION 12/07/2021 [employer] DATE CREATED AUTHOR AUTHOR'S ORGANIZ ATION 09/28/2022 [facility] ([place]) DATE CREATED AUTHOR AUTHOR'S ORGANIZ ATION [facility] DATE CREATED AUTHOR AUTHOR'S ORGANIZ ATION 04/27/2024 [facility] DATE CREATED AUTHOR AUTHOR'S ORGANIZ ATION 08/14/2024 [facility] Ordered Prescriptions (unrec ognized section and content) [...] BE BASED ON THE PRIMARY CLINICAL RECORDS. [employer] provides no warranty or guarantee of the accuracy or completeness of information in this document.
[2024-10-03 12:10] LABS: AST(SGOT) 29 U/L (<=37); Alanine Aminotransfer ALT/SGPT 28 U/L (<=46); Albumin, Serum 4.4 g/dL (3.4-4.8); Alkaline Phosphatase 80 U/L (40-129); Anion Gap 10 (5-15); BUN 15 mg/dL (4-19); BUN/Creat Ratio 14.9 RATIO (10-20); Calcium,Total 10.8 mg/dL (7.6-11.0); Carbon Dioxide 21.5 mmol/L (21.0-32.0); Chloride 104 mmol/L (98-108); Estimated Creatinine Clearance 96.38 ml/min (50-250); Globulin 3.1 g/dL (2.2-4.2); Glucose 97 mg/dL (70-99); Lipase 27 U/L (13-75); Potassium 4.5 mmol/L (3.3-5.1)
--- NOTE | 2024-10-03 12:15 | CT_ITS ---
PROCEDURE: ABDOMEN/PELVIS W IV CONT ONLY 10/03/2024 REASON FOR EXAM: FLANK PAIN, RIGHT LOWER QUADRANT PAIN TECHNIQUE: ABDOMEN/PELVIS W IV CONT ONLY Coronal and Sagittal reconstruction series were provided. CONTRAST: Isovue 370 VOLUME: 90 mL One or more dose reduction techniques were used (e.g., Automated exposure control, adjustment of the mA and/or kV according to patient size, use of iterative reconstruction technique. RADIATION DOSE SUMMARY: CTDlvol: 16.99 mGy DLP: 93.92 mGycm COMPARISON: August 02, 2024. FINDINGS: Lung bases: Dependent changes in the posterior lungs. Liver: Hepatomegaly and liver steatosis. The liver measures 20 cm in length. Gallbladder: Status post cholecystectomy. No biliary dilation. Spleen: Unremarkable. Pancreas: Unremarkable. Adrenals: Unremarkable. Kidneys: No hydronephrosis. Bilateral kidney cysts with the largest measures 2.5 cm. No nephrolithiasis. Bladder: Unremarkable. Reproductive Organs: Unremarkable. Bowel: No bowel wall thickening. No bowel obstruction. Sigmoid colon diverticulosis. Appendix: Normal. Lymph nodes: No lymphadenopathy. Vasculature: Status post placement of left iliac vein stent. Atherosclerotic calcifications of the aorta and iliac arteries. No aneurysm. Peritoneum / Retroperitoneum: No free air or free fluid. Bones: No acute bony abnormalities. CT/Abdomen/Pelvis W IV Cont ONLY IMPRESSION: No acute abdominopelvic abnormalities. Liver steatosis and hepatomegaly. Reading Location: [facility]
[2024-10-03 12:33] VITALS: BP 151/73; PULSE 70
[2024-10-03] MEDS: Lidocaine 5% Patch 1 PATCH TOPICAL (14:13)
--- NOTE | 2024-10-03 14:59 | ED.RN ---
pt gets agitated and wants to have iv removed. pt tired of waiting on the CT results. this rn removed pt iv and called for an update on scan from radiology. CT states that there was an error message that was not seen right away and it was late being sent to the radiologist. this rn updates patient. pt requesting a time frame. this rn calls ct again and they were to call and check. pt comes out of the room and states that he is tired of waiting and wants to go home.
== END 2024-10-03 16:05 | disposition home or self-care (01) ==
PROVIDERS: Emergency Provider Student in an Organized Health Care Education/Training Program; PCP Family Medicine; Referring Provider Student in an Organized Health Care Education/Training Program; Visit Provider Student in an Organized Health Care Education/Training Program
DX: M54.9 Dorsalgia, unspecified (principal); F17.210 Nicotine dependence, cigarettes, uncomplicated; Z86.718 Personal history of other venous thrombosis and embolism
CPT/HCPCS: 74177; 80053; 81001; 83690; 85025; 96374; 96375; 99283; Q9967; A4216

== ENCOUNTER → 2024-10-09 | Outpatient (CLI) | payer OTHER, SELFPAY ==
--- NOTE | 2024-10-09 10:25 | RAD_ITS ---
PROCEDURE: L/S SPINE MIN 4 VIEWS 10/09/2024 REASON FOR EXAM: BACK PAIN Chronic back pain. TECHNIQUE: L/S SPINE MIN 4 VIEWS COMPARISON: None FINDINGS: Curvature: Minimal levoconvex scoliosis. Other findings: Moderate degree of disc space narrowing at the L5-S1 level. Moderate degree of disc space narrowing at the L2-L3 and L4-L5 levels. Anterior spondylosis. Other: Facet joint osteoarthritis and hypertrophy. There is evidence of a covered stent involving the left common iliac external iliac and common femoral artery. RAD/L/S Spine Min 4 Views IMPRESSION: Disc space narrowing and spondylosis. Facet joint osteoarthritis. Reading Location: [facility]
== END | disposition home or self-care (01) ==
PROVIDERS: PCP Family Medicine; Referring Provider Nurse Practitioner Family; Visit Provider Nurse Practitioner Family
DX: M54.9 Dorsalgia, unspecified (principal)
CPT/HCPCS: 72110

== ENCOUNTER → 2024-11-23 | Outpatient (CLI) | payer OTHER, SELFPAY ==
--- NOTE | 2024-11-23 08:36 | MRI_ITS ---
PROCEDURE: MRI SPINE LUMBAR (ROUTINE) 11/23/2024 REASON FOR EXAM: PAIN X1 YEAR WORSENING, RIGHT RADICULOPATHY TECHNIQUE: Procedure Code: MRISPL Modality: MR Procedure: SPINE LUMBAR (ROUTINE) Multiplanar and multisequential MRI of the lumbar spine was performed without contrast. COMPARISON: Radiographs 11/09/2024. FINDINGS: No acute fracture or subluxation. Vertebral body heights are preserved. Alignment is anatomic. No suspicious marrow lesion. Mild multilevel spondylotic changes with varying degrees of disc desiccation and narrowing, degenerative endplate marrow signal changes and anterior osteophytosis, and hypertrophic facet arthropathy. Conus appears normal in signal and morphology, terminating at L1. Normal appearance of the cauda equina. No significant abnormality in the visualized paravertebral or retroperitoneal soft tissues. Several small simple appearing bilateral renal cysts noted. L1-2: Slight dorsal annular disc bulge. No spinal canal or foraminal narrowing. L2-3: Broad-based disc bulge and ligamentum flavum/facet hypertrophy results in mild-moderate spinal canal narrowing. Mild bilateral neural foraminal narrowing. L3-4: Broad-based disc bulge and ligamentum flavum/facet hypertrophy results in mild spinal canal narrowing. Mild left and moderate right neural foraminal narrowing. L4-5: Broad-based disc bulge and ligamentum flavum/facet hypertrophy results in mild spinal canal narrowing. Moderate bilateral neural foraminal narrowing, slightly more advanced on the right. L5-S1: Broad-based disc bulge indents the ventral thecal sac, without any substantial spinal canal narrowing. Moderate right and advanced left neural foraminal stenosis. MRI/Spine Lumbar (Routine) IMPRESSION: 1. No acute abnormality. Mild multilevel spondylotic changes as described. 2. No high-grade spinal canal stenosis or cauda equina impingement. 3. Neural foraminal narrowing is most advanced on the left at L5-S1, and modera te on the right at L3-4, bilaterally at L4-5, and right L5-S1. Reading Location: [id number]
== END | disposition home or self-care (01) ==
PROVIDERS: PCP Family Medicine; Referring Provider Student in an Organized Health Care Education/Training Program; Visit Provider Student in an Organized Health Care Education/Training Program
DX: M51.362 Other intervertebral disc degeneration, lumbar region with discogenic back pain and lower extremity pain (principal); M54.16 Radiculopathy, lumbar region
CPT/HCPCS: 72148

== ENCOUNTER → 2025-01-29 | Outpatient (CLI) | payer OTHER, SELFPAY | END | disposition home or self-care (01) | LOC: LABSPEC 14:51 | PROVIDERS: PCP Family Medicine; Referring Provider Nurse Practitioner Family; Visit Provider Nurse Practitioner Family | DX: R30.0 Dysuria (principal) | CPT/HCPCS: 87086 ==

== ENCOUNTER → 2025-01-30 | Outpatient (CLI) | payer OTHER, SELFPAY ==
--- OUTSIDE RECORDS SUMMARY | 2025-01-30 08:33 | XMS RPT_ITS | CCD ---
Author Organization [facility] Care Team Providers Care Pricing/Signage Team Member Name Role Phone Leanne Perales Primary Care Provider Leanne Perales Primary Care Unavailable PROVIDER, UNKNOWN Referring Unavailable Tayler Rivas Attending Unavailable Leanne Perales MD Primary Care Provider Leanne Perales Primary Care Unavailable PROVIDER, UNKNOWN Referring Unavailable ROCIO NIEVES Attending Unavailable Leanne Perales Primary Care Unavailable PROVIDER, UNKNOWN Referring Unavailable Kennedi Benito Attending Unavailable PROVIDER, UNKNOWN Referring Unavailable [...] MD Unavailable Dr. Ryan Ceja Attending Provider [phone] Ryan Ceja Admit Provider Dr. Ryan Ceja Referring Provider [phone] Ryan Ceja Other Provider CHERYL BASILIO Primary Care Provider Dr. Fabio Day Other Provider EDMUND Clarke Attending Provider [phone] Ryan Ceja Referring Provider Dr. Janette King Attending Provider RUBI Hale Attending Provider [phone] Cheryl Basilio MD Primary Care Provider Cheryl Basilio MD Primary Care Provider Dr. Ryan Ceja Attending Provider [phone] Ryan Ceja Referring Provider [phone] Janette King Attending Provider [phone] Dr. Ryan Ceja Admit Provider Dr. Ryan Ceja Other Provider CHERYL BASILIO Primary Care Provider Dr. Fabio Day Other Provider EDMUND Clarke Attending Provider [phone] RUBI Hale Attending Provider [phone] EDMUND Yates Attending Provider [phone] RUBI Hale Primary Care Provider RUBI Hale Referring Provider [phone] Dr. Ryan Ceja Attending Provider [phone] Ryan Ceja Attending Provider [phone] Ryan Ceja Referring Provider [phone] EDMUND Clarke Attending Provider [phone] Ryan Ceja Attending Provider [phone] Silvestre Sexton Primary Care Provider [phone] CHERYL BASILIO Primary Care Unavailable SILVESTRE SEXTON Primary Care Unavailable ROCIO CALIX Attending Unavailable CHERYL BASILIO Attending Unavailable CHERYL BASILIO Primary Care Unavailable ZIGGY ARAUZ Attending Unavailable CHERYL BASILIO Primary Care Unavailable PACHECO ORTIZ Attending Unavailab le CHERYL BASILIO Primary Care Unavailable CHERYL BASILIO Primary Care Unavailable ZIGGY ARAUZ Admitting Unavailable ZIGGY ARAUZ Attending Unavailable PACHECO NEGRON Attending Unavailable KJ, CHERYL Primary Care Unavailable YOLANDA PATEL Attending Unavailable KJ, CHERYL Primary Care Unavailable KJ, CHERYL Primary Care Unavailable ZIGGY ARAUZ Attending Unavailable VEERADANIE LOWEUSMAHESH, ROCIO Attending Unavailable KJ, CHERYL Primary Care Unavailable KJ, CHERYL Attending Unavailable KJ, CHERYL Referring Unavailable KJ, CHERYL Primary Care Unavailable VEERAVANALLUR APPUSWAMY, ROCIO Referring Unavailable SILVESTRE SEXTON Primary Care Unavailable VEERAVANALLUR FRANCISCOUSDEBORAHMY, ROCIO Attending Unavailable KJ, CHERYL Attending Unavailable KJ, CHERYL Referring Unavailable KJ, CHERYL Primary Care Unavailable KJ, CHERYL Primary Care Unavailable DAVONTE, ZIGGY Attending Unavailable DAVONTE, ZIGGY Referring Unavailable VEERAALINAUR FRANCISCOUSWAMY, ROCIO Attending Unavailable VEERADANIE PALMAMY, ROCIO Referring Unavailable KJ, CHERYL Primary Care Unavailable DAVONTE, ZIGGY Attending Unavailable KJ, CHERYL Primary Care Unavailable ALEXIA CHINCHILLAN-AUDIO VISUAL DIRECTOR, SANJANA M Primary Care Physician BASIM RAMSEY MD Attending Unavaila laurent HALE CHAIRMAN & CEO-AUDIO VISUAL DIRECTOR, SANJANA M Primary Care Lizz HALE APRN-AUDIO VISUAL DIRECTOR, SANJANA M Primary Care BASIM Thibodeaux MD Attending Unavaila laurent Hale SERVICE ATTENDANT-C, Sanjana Primary Care Provider Alexia SERVICE ATTENDANT-C, Sanjana Referring Provider [phone] David Piña Attending Provider Dolly Stewart Attending Provider [phone] Justice Bailey DO Primary Care Provider Dr. Justice Bailey DO Attending Provider [phone] Dolly Stewart Referring Provider [phone] Ryan Ceja MD Attending Provider [phone] Yolanda Yates Attending Provider [phone] Justice Bailey DO Referring Provider Stanislaw Thomas Attending Provider Dolly Stewart Attending Provider [phone] Justice Bailey DO Primary Care Provider Estefany Gonzalez MA Attending Provider Unavailable King MARIA E, Dr. Wilkins Attending Provider Ross LOAIZA, Dr. Ojeda Emergency Provider Ungtesha DO, Dr. Ojeda Attending Provider Leo LOAIZA, Dr. Justice Issa Attending Provider [phone] Leo LOAIZA, Dr. Justice Issa Primary Care Provider Leo LOAIZA, Dr. Justice Issa Referring Provider [phone] Rebel SANDERSON, Dr. [place] Referring Provider Unavailab paula Luque MD, Dr. [place] Emergency Provider Unavailab paula Luque MD, Dr. [place] Attending Provider Unavailab le Keshiaerer SERVICE ATTENDANT-C, Xiomara Attending Provider [phone] Ungerer SERVICE ATTENDANT-C, Xiomara Referring Provider [phone] Leo LOAIZA, Dr. Justice Issa Primary Care Provider Sherry Woo Attending Provider [phone] Jamel SANDERSON, Dr. Henry Attending Provider [phone] Dr. Justice Bailey DO Primary Care Physician Dr. Justice Bailey DO Attending Physician [phone] Dr. Justice Bailey DO Referring Provider [phone] Dr. Ludy Luque MD Attending Physician Unavaila ble Rebel SANDERSON, Dr. [place] Emergency Department Physici an Unavailable Ungerer SERVICE ATTENDANT-C, Xiomara Attending Physician Sherry Woo Attending Physician Jamel SANDERSON, Dr. Henry Attending Physician Sherry Woo Referring Provider [phone] Justice Bailey Primary Care Unavailable Ungerer, Xiomara Referring Unavailable Ungerer, Xiomara Attending Unavailable Ferullo, Sanjana Referring Unavailable Ferullo, Sanjana Attending Unavailable Ferullo, Sanjana Primary Care Unavailable Justice Bailey Primary Care Unavailable Brown, Justice R Attending Unavailable Ferullo, Sanjana Referring Unavailable Ferullo, Sanjana Primary Care Unavailable Ferullo, Sanjana Referring Unavailable Clarke, Dolly Attending Unavailable Carl Mccullough Attending Unavailable Brown, Justice R Primary Care Unavailable Brown, Justice R Primary Care Unavailable Brown, Justice R Referring Unavailable Sherry Venegas Attending Unavailable Brown, Justice R Primary Care Unavailable Brown, Justice R Referring Unavailable Xiomara Johnston Attending Unavailable Brown, Justice R Primary Care Unavailable Brown, Justice R Referring Unavailable Brown, Justice R Attending Unavailable Brown, Justice R Primary Care Unavailable Brown, Justice R Referring Unavailable Franky Brewer Attending Unavailable Brown, Justice R Referring Unavailable TheoSherry Attending Unavailable Brown, Justice R Primary Care Unavailable Theo Sherry Referring Unavailable TheoAdrianayn Attending Unavailable Brown, Justice R Primary Care Unavailable Brown, Justice R Primary Care Unavailable Rebel, Ludy Referring Unavailable Rebel Ludy Attending Unavailable Brown, Justice R Primary Care Unavailable Rusty Hawkins Attending Unavailable Stanislaw Thomas Attending Unavailable Brown, Justice R Primary Care Unavailable Brown, Justice R Primary Care Unavailable Clarke, Dolly Referring Unavailable Clarke, Dolly Attending Unavailable Stanislaw Thomas Attending Unavailable Brown, Justice R Primary Care Unavailable Brown, Justice R Referring Unavailable Ryan Ceja Attending Unavailable Brown, Justice R Primary Care Unavailable Clarke, Dolly Referring Unavailable Brown, Justice R Primary Care Unavailable Estefany Gonzalez Attending Unava ilable Brown, Justice R Primary Care Unavailable Yolanda Yates Attending Unavailable Ferullo, Sanjana Referring Unavailable David Piña Attending Unavailable Ferullo, Sanjana Primary Care Unavailable Allergies Allergy Classification Reported Allergen(s) Allergy Type Date of Onset Reaction(s) Facility Opioid Agonists (1 source) Meperidine Drug Allergy 5 Nausea And Vomiting [facility] (20 sources) Meperidine; Translations: [meperidine] Drug Allergy 5 Nausea And Vomiting, Vomiting (disorder) [facility] (1 source) Meperidine Drug Allergy 5 [facility] Repository Medications Current Medications Medication Drug Class(es) Dates Sig (Normalized) Sig (Original) aspirin 81 mg delayed release oral tablet (20 sources) Platelet Aggregation Inhibitor, Nonsteroidal Anti-inflammatory Drug Start: 02-13-2023 take 1 tablet by mouth at breakfast Aspirin 81 mg Tablet,Delayed Release (Dr/Ec) Active 81 mg PO WITH BREAKFAST 30 0 February 13, 2023 1:00am Complies with drug therapy Start: 12-01-2021 End: 06-19-2022 take 81 mg [...] 12:56pm As directed Blood Pressure Monitor kit (18 sources) Start: 03-21-2023 Blood Pressure Monitor kit Active 0 .ROUTE .MEDSUPPLY 1 March 21, 2023 1:56pm As directed Start: 03-21-2023 Blood Pressure Monitor kit Active 0 .ROUTE .MEDSUPPLY March 21, 2023 1:56pm As directed Start: 03-21-2023 End: 03-21-2023 Blood Pressure Monitor kit D iscontinued 0 .ROUTE .MEDSUPPLY 1 March 21, 2023 1:00am March 21, 2023 1:56pm As directed Start: 03-21-2023 End: 03-21-2023 Blood Pressure Monitor kit D iscontinued 0 .ROUTE .MEDSUPPLY March 21, 2023 1:00am March 21, 2023 1:56pm As directed cabergoline 0.5 mg oral tablet (20 sources) Ergot Derivative Start: 07-17-2024 End: 11-25-2024 take 2 tablets by mouth two times weekly Cabergoline 0.5 mg tablet Active 1 mg PO TWICE A WEEK 48 November 25, 2024 3:44pm take 2 tab by mouth on and Sat Complies with drug therapy Start: 10-13-2022 take 0.75 mg by mouth once 0.7 5 mg, Oral, Once, On 10/13/22 at 0900, For 1 dose Verified by pharmacy, 10-13-22, [facility] Start: 08-22-2022 End: 07-17-2024 take 1 tablet by mouth two times weekly Cabergoline 0.5 mg tablet Discontinued 0.5 mg PO TWICE A WEEK 26 03November 06, 2023 12:21pm July 17, 2024 8:57am [...] Active docusate sodium 50 mg / sennosides, shelter 8.6 mg oral tablet (4 sources) Start: [...] mL 0 11/27/2021 11/27/2021 Discontinued (LIST CLEANUP) lidocaine 0.05 mg/mg medicated patch (6 sources) Antiarrhythmic, Amide Local Anesthetic Start: 10-03-2024 Lidocaine (Lidoderm) 5 % adhesive patch,medicated Active 1 NMA TOPICAL DAILY 15 0 October 03, 2024 12:00am leave on most painful area for up to 12 hrs Complies with drug therapy melatonin 10 mg oral capsule (1 source) Start: 12-02-2021 melatonin capsule 10 mg niacin 1000 mg oral tablet [...] (MACROBID) 100 MG capsule polyethylene glycol 3350 18956 mg powder for oral solution (6 sources) Osmotic Laxative Start: 10-16-2022 End: 10-20-2022 polyethylene glycol, PEG, 3350 (Glycolax) 17 GM/SCOOP powder Take 17 g by mouth 2 times daily for 3 days. 119 g 0 10/16/2022 10/20/2022 Active Start: 10-13-2022 End: 10-16-2022 polyethylene glycol (PEG) 33 50 (Miralax) packet 17 g predniSONE 10 mg oral tablet (9 sources) Start: 10-08-2024 take 6 tablets by mouth once daily, then take 4 tablets by mouth once daily, then take 2 tablets by mouth once daily Prednisone 10 mg tablet Active 10 mg PO As Directed 48 0 October 08, 2024 12:00am Take 6 tablets daily for 4 days, then take 4 tablets daily for 4 days, then take 2 tablets daily for 4 days Complies with drug therapy Start: 10-08-2024 End: 10-08-2024 Prednisone 10 mg tablets,dos e pack Discontinued 10 mg PO As Directed 48 0 October 08, 2024 12:00am October 08, 2024 10:08am see taper instructions rosuvastatin calcium 10 mg oral tablet (20 sources) HMG-CoA Reductase Inhibitor Start: 01-30-2023 take 1 tablet by mouth once daily Rosuvastatin (Crestor) 10 mg tablet Active 10 mg PO DAILY January 30, 2023 1:00am Complies with drug therapy Start: 05-07-2022 End: 10-31-2022 take 1 tablet [...] mouth daily 90 tablet 1 09/08/2018 Active tamsulosin hydrochloride 0.4 mg oral capsule (20 sources) alpha-Adrenergic Aldo Start: 01-30-2023 End: 11-24-2024 take 1 capsule by mouth once daily Tamsulosin 0.4 mg capsule Active 0.4 mg PO DAILY 90 0 November 24, 2024 8:24am Complies with drug therapy Start: 09-24-2022 End: 10-16-2022 take 1 capsule by mouth once daily tamsulosin (Flomax) 0.4 MG 24 hr capsule Take 1 capsule (0.4 mg) by mouth daily. 30 capsule 2 10/16/2022 Active Completed/Discontinued Medications Medication Drug Class(es) Dates Sig [...] PRN, sever e pain (7-10), Starting on 10/12/22 at 2254 Maximum dose of acetaminophen is 4000 mg from all sources in 24 hours. ALPRAZolam 0.25 mg disintegrating oral tablet (1 source) Benzodiazepine Start: 12-25-2022 End: 12-25-2022 ALPRAZolam (Xanax) disintegrating tablet 0.25 mg amoxicillin 500 mg oral tablet (16 sources) Penicillin-class Antibacterial Start: 08-11-2024 End: 10-08-2024 take 1 tablet by mouth three times daily Amoxicillin 500 mg tablet Discontinued 500 mg PO THREE TIMES A DAY 21 August 11, 2024 12:00am October 08, 2024 9:01am Start: 10-10-2023 End: 12-23-2023 take 1 capsule by mouth three times daily Amoxicillin 500 mg capsule Discontinued 500 mg PO THREE TIMES A DAY 30 October 10, 2023 12:00am December 23, 2023 9:53am amoxicillin 875 mg / clavulanate 125 mg oral tablet (20 sources) Penicillin-class Antibacterial Start: 05-12-2023 End: 09-20-2023 Amoxicillin-Pot Clavulanate 875-125 mg tablet Discontinued 1 {tbl} PO Q12H 20 May 28, 2023 11:03am September 20, 2023 [...] 03/03/2022 Active azithromycin 250 mg oral tablet (9 sources) Macrolide Antimicrobial Start: 02-25-2024 End: 03-18-2024 Azithromycin 250 mg tablet Discontinued 0 PO .COMPLEX 6 0 February 25, 2024 1:00am March 18, 2024 [...] (Therapy completed) clopidogrel 75 mg oral tablet (17 sources) P2Y12 Platelet Inhibitor Start: 02-13-2023 End: 05-28-2023 take 1 tablet by mouth once daily Clopidogrel 75 mg Tablet Discontinued 75 mg PO DAILY 30 February 13, 2023 1:00am May 28, 2023 10:04am cyclobenzaprine hydrochloride 10 mg oral tablet (20 sources) Muscle Relaxant Start: 10-03-2024 End: 10-08-2024 take 1 tablet by mouth three times daily as needed for muscle spasms Cyclobenzaprine 10 mg tablet Discontinued 10 mg PO THREE TIMES A DAY as needed for Muscle Spasm 20 October 03, 2024 12:00am October 08, 2024 9:01am Start: 10-14-2023 End: 07-17-2024 take 1 tablet [...] PO BEDTIME as needed for muscle spasm 30 June 06, 2023 12:00am September 20, 2023 8:57am Flank pain Back problem Unspecified abdominal pain Dorsopathy, unspecified 1 ml diphenhydrAMINE hydrochloride 50 mg/ml cartridge [...] 30 mg erythromycin 0.005 mg/mg ophthalmic ointment (16 sources) Macrolide, Macrolide Antimicrobial Start: 12-23-2023 End: 12-28-2023 Erythromycin 5 mg/gram (0.5 %) ointment Discontinued 0.5 [in_us] OPHTHALMIC TWICE A DAY 3.5 5 0 December 23, 2023 12:00am December 27, 2023 12:00am December 28, 2023 12:15am Hordeolum externum of left eye Hordeolum externum left eye, unspecified eyelid Start: 12-25-2022 End: 12-28-2022 erythromycin (Romycin) 5 [...] mg tablet Discontinued 160 mg PO DAILY 90 1 October 25, 2023 11:08am July 17, 2024 8:57am Start: 10-16-2021 End: 10-31-2022 take 1 tablet by mouth once daily fenofibrate (Triglide) 160 MG tablet Take 1 tablet (160 mg) by mouth daily. 90 tablet 1 10/31/2022 Active Start: 09-08-2018 take 1 tablet by celestino th once daily fenofibrate 160 MG tablet Take [...] mcg tablet Discontinued 100 ug PO DAILY 90 May 01, 2024 2:52pm July 17, 2024 8:57am Start: 01-30-2023 End: 05-21-2023 take 1 capsule by mouth once daily Levothyroxine 100 mcg capsule Discontinued 100 ug PO DAILY 90 May 20, 2023 3:03pm May 21, 2023 [...] 10 mg meloxicam 15 mg oral tablet (9 sources) Nonsteroidal Anti-inflammatory Drug Start: 10-15-2023 End: 03-18-2024 take 1 tablet by mouth once daily Meloxicam 15 mg tablet Discontinued 15 mg PO DAILY 16 04October 15, 2023 12:00am March 18, 2024 2:17pm [...] mg oxyCODONE hydrochloride 5 mg oral tablet (20 sources) Opioid Agonist Start: 02-13-2023 End: 03-21-2023 take 1 tablet by mouth every eight hours as needed for pain Oxycodone 5 mg Tablet Discontinued 5 mg PO EVERY 8 HOURS NEEDED as needed for Pain Score 4-10 6 2 0 February 13, 2023 March 21, 2023 9:42am Postoperative pain Other acute postprocedural pain Start: 12-25-2022 End: 12-25-2022 oxyCODONE (Roxicodone) immed [...] sources) Factor Xa Inhibitor Start: 10-12-2022 End: 09-23-2024 take 1 tablet by mouth once daily at dinner Rivaroxaban 20 mg tablet Discontinued 20 mg PO EVERY EVENING 90 April 14, 2024 11:22am September 23, 2024 1:59pm 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 must administer with evening meal 5 ml [...] 14 tablet 3 08/17/2022 10/11/2022 Discontinued (Reorder) 60 actuat testosterone 20.25 mg/actuat topical gel (20 sources) Androgen Start: 07-01-2024 End: 07-17-2024 Testosterone 20.25 mg/1.25 gram (1.62 %) gel in metered-dose pump Discontinued 2 NMA TOPICAL daily 75 2 July 01, 2024 12:06pm July 17, 2024 8:56am Start: 01-26-2024 End: 03-26-2024 apply 2 [IU] topically once daily in the morning testosterone 20.25 mg/actuation (1.62%) transdermal gel 2 pump(s), Topical, qAM, # 75 gram(s), 1 Refill(s), Pharmacy: [id number], Low testosterone, 187.9, cm, 01/09/24 [...] End: 12-02-2021 traZODone (DESYREL) tablet 50 mg triamcinolone acetonide 1 mg/ml topical cream (9 sources) Corticosteroid Start: 07-12-2023 End: 10-08-2024 Triamcinolone Acetonide 0.1 % cream Discontinued 1 NMA TOPICAL TWICE A DAY 80 0 July 12, 2023 12:00am October 08, 2024 9:02am Start: 07-12-2023 End: 10-08-2024 Triamcinolone Acetonide 0.1 % cream Discontinued 1 NMA TOPICAL TWICE A DAY 80 0 July 12, 2023 12:00am October 08, 2024 9:02am Start: 07-12-2023 Triamcinolone Acetonide 0.1 % cream Active 1 NMA TOPICAL TWICE A DAY 80 0 July 12, 2023 12:00am Start: 07-12-2023 Triamcinolone Acetonide 0.1 % cream Active 1 NMA TOPICAL TWICE A DAY 80 July 12, 2023 12:00am vancomycin 250 mg oral capsule (8 sources) Glycopeptide Antibacterial Start: 06-03-2024 End: 08-11-2024 take 1 capsule by mouth three times daily Vancomycin 250 mg capsule Discontinued 250 mg PO THREE TIMES A DAY 21 0 June 03, 2024 12:00am August 11, 2024 3:30pm Problems Active Problems Problem Classification Problem Date Documented Da te Episodic/Chronic Abdominal pain (20 sources) Flank pain; Translations: [Unspecified abdominal pain] Onset: 2 Resolved: 3 Episodic Comment on above: Hx pyelonephritis at [facility] 2022- required IV antibiotics via PICC line, ESBL E.Coli MDRBilateral renal US 11/2022- no hydronephrosis or echogenic shadowing, bilateral renal cysts present05/09/2023- urine culture + Fannyhessea vaginae Anxiety disorders (20 sources) Anxiety about treatment; Translations: [Generalized anxiety disorder] Onset: 3 12-13-2022 Chronic Chronic obstructive pulmonary disease and bronchiectasis (1 [...] symptoms] Onset: 5 10-11-2022 Chronic Other aftercare (9 sources) Surgical follow-up; Translations: [Encounter for surgical aftercare following surgery on the circulatory system] 04-14-2024 Episodic Other and unspecified benign neoplasm (4 sources) Benign neoplasm of pituitary gland; Translations: [Benign neoplasm of pituitary gland] Onset: 2 Episodic Other and unspecified benign neoplasm (9 sources) Pituitary adenoma; Translations: [Benign neoplasm of pituitary gland] Onset: 6 01-02-2023 Episodic Other and unspecified benign neoplasm (15 sources) Pituitary macroadenoma; Translations: [Benign neoplasm of pituitary gland] 07-17-2024 Episodic Other circulatory disease (2 sources) Stricture of artery; Translations: [Stricture of artery (HCC)] Onset: 3 Chronic Other circulatory disease (2 sources) Bleeding; Translations: [Hemorrhage, not elsewhere classified] 12-25-2022 Episodic Other circulatory disease (17 sources) Elevated blood pressure; Translations: [Elevated blood-pressure reading, without diagnosis of hypertension] 03-21-2023 Episodic Other connective tissue disease (2 sources) Swelling of lower limb; Translations: [Other specified soft tissue disorders] 10-12-2022 Episodic Other connective tissue disease (10 sources) Swelling of left lower limb; Translations: [Other specified soft tissue disorders] 06-28-2023 Episodic Other diseases of kidney and ureters (3 sources) Complex renal cyst; Translations: [Cyst of kidney, acquired] 10-10-2022 Episodic Other diseases of veins and lymphatics (10 sources) Occlusion of iliac vein; Translations: [Compression of vein] 06-28-2023 Episodic Other diseases of veins and lymphatics (10 sources) Vascular insufficiency; Translations: [Venous insufficiency (chronic) (peripheral)] 07-12-2023 Episodic Other diseases of veins and lymphatics (9 sources) Stasis dermatitis; Translations: [Venous insufficiency (chronic) [...] Translations: [Hypopituitarism] 07-31-2023 Chronic Other gastrointestinal disorders (16 sources) History of diverticulitis; Translations: [Personal history of other diseases of the digestive system] 03-21-2023 Episodic Comment on above: s/p colectomy Other gastrointestinal disorders (7 sources) Personal history of other diseases of the digestive system; Translations: [Personal history of unspecified digestive disease] 03-21-2023 Episodic Other liver diseases (16 sources) Steatosis of liver; Translations: [Fatty (change [...] Chronic Other nutritional; endocrine; and metabolic disorders (20 sources) Hypercalcemia; Translations: [Hypercalcemia] Onset: 4 01-02-2023 Chronic Other nutritional; endocrine; and metabolic disorders (2 sources) History of Graves' disease 12-24-2023 Episodic Other screening for suspected conditions (not mental disorders or infectious disease) (18 sources) Encounter for screening for osteoporosis; Translations: [Patient encounter status] Onset: 2 Episodic Other skin disorders (10 sources) Sebaceous cyst of scrotum; Translations: [Sebaceous cyst] 02-25-2024 Episodic Other upper respiratory infections (15 sources) Sinusitis; Translations: [Chronic sinusitis, unspecified] Onset: [...] Onset: 3 10-12-2022 Episodic Comment on above: [facility] TRIED TO REMOVE IN 11/2022, UNSUCCESSFUL Pleurisy; pneumothorax; pulmonary collapse (1 source) Pleural effusion; Translations: [Pleural effusion, not elsewhere classified] 10-10-2022 Episodic Screening and history of mental health and substance abuse codes (10 sources) Tobacco use and exposure - finding; Translations: [Personal history of nicotine dependence] 10-10-2022 Episodic Spondylosis; intervertebral disc disorders; other back problems (2 sources) Degeneration of lumbar intervertebral disc; Translations: [Degenerative disc disease (DDD) of lumbar region with discogenic back pain and leg pa] 11-09-2024 Chronic Spondylosis; intervertebral disc disorders; other back problems (20 sources) Acute low back pain; Translations: [Acute right-sided low back pain without sciatica] Onset: 3 03-06-2022 Episodic Sprains and strains (20 sources) Low back strain; Translations: [Strain of muscle, fascia and tendon of lower back, initial encounter] 05-28-2024 Episodic Substance-related disorders (20 sources) Smoker; Translations: [Nicotine dependence, unspecified, uncomplicated] 02-20-2023 Chronic Thyroid disorders (20 sources) 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; Translations: [Hypothyroidism] Onset: 6 Resolved: 1 12-08-2016 Chronic Unclassified (2 sources) Post-op; Translations: [Post-op] Onset: 3 Unclassified (2 sources) Patient encounter status 12-24-2023 Unclassified (6 sources) Abnormality of pituitary gland; Translations: [E23.7 - Disorder of pituitary gland, unspecified] Unclassified (1 source) Other intervertebral disc degeneration, lumbar region with discogenic back pain and lower extremity pain; Translations: [Other intervertebral disc degeneration, lumbar region with discogenic back pain and lower extremity pain] Onset: 5 Past or Other Problems Problem Classification Problem Date Documented Da te Episodic/Chronic Bacterial infection; unspecified site (20 sources) Infection due to ESBL Escherichia coli; Translations: [Other bacterial infections of unspecified site] Onset: 2 Resolved: 2 Episodic Calculus of urinary tract (18 sources) Personal history of urinary calculi; Translations: [Renal pain] Onset: 2 Episodic Inflammation; infection of eye (except that caused by tuberculosis or sexually transmitteddisease) (19 sources) Hordeolum externum of left eyelid; Translations: [...] [E. coli]] Onset: 2 Resolved: 2 Episodic Thyroid disorders (17 sources) Disorder of thyroid gland; Translations: [Disorder of thyroid, unspecified] Onset: 5 03-21-2023 Episodic Comment on above: HYPOTHYROID TSH 01/25- .36 Urinary tract infections (20 sources) Pyelonephritis; Translations: [Tubulo-interstitial nephritis, not specified as acute or chronic] Onset: 2 Resolved: 3 Episodic Results Test Name Value Interpretation Reference Range Facility Orthopedic Visit Reporton Orthopedic Visit Report [facility] [address] [place] [address] OFFICE VISIT Date of Service: 12/02/24 MR#: [id number] Acct: [id number] Name: CORRIE QUEEN Rep #: [id number] : 1960 Provider: EDMUND Almanza Age/Sex: 64/M Location[facility] Status: Signed Intake Vital Signs 11/09/24 09:23 12/02/24 13:25 Height 6 ft 2 in 6 ft 2 in Weight: 220 lb 225 lb BMI 28.2 28.8 Intake Visit Reasons: LUMBAR SPINE Chief Complaint: Lumabr spine MRI review Accompanied by: Self Is patient in pain?: Yes Pain scale (1-10): 4 Allergies meperidine (From Demerol) Adverse Reaction (Intermediate, Verified 12/02/24 13:29) Nausea/Vom/Diarrhea Medications ???Medication ???Instructions ???Recorded ???Confirmed ???Type rosuvastatin 10 mg tablet (Crestor) 10 mg PO DAILY 01/30/23 5 History aspirin 81 mg tablet,delayed 81 mg PO BREAKFAST #30 tabs 12/02/24 Rx release blood pressure monitor #1 ea 03/21/23 12/02/24 Rx tadalafil 5 mg tablet 5 mg PO DAILY #90 tabs 06/02/24 Rx fenofibrate 160 mg tablet 160 mg PO DAILY #90 tabs 07/17/24 12/02/24 Rx levothyroxine 100 mcg tablet 100 mcg PO DAILY #90 tabs 07/17/24 12/02/24 Rx testosterone 2 pump topical QDAY #150 grams 12/02/24 Rx rivaroxaban 20 mg tablet (Xarelto) 20 mg PO QPM #90 TABLETS 5 12/02/24 Rx lidocaine 5 % topical patch 1 patch topical DAILY #15 ea 10/0312/02/24 Rx (Lidoderm) prednisone 10 mg tablet 10 mg PO DIRECTED #48 tabs 09/2512/02/24 Rx tamsulosin 0.4 mg capsule 0.4 mg PO DAILY #90 caps 11/24/24 12/02/24 Rx cabergoline 0.5 mg tablet 1 mg (2 x 0.5 mg) PO 2XW #48 tabs 11/25/24 12/02/24 Rx Have you fallen in the past year?: No PFSH Medical History Hypercalcemia Hypothyroidism due to [...] activity do you participate in: none HPI LUMBAR SPINE Details: This documentation accurately reflects the service provided and the decisions made by me, EDMUND Almanza 12/02/24 1325. Part of today???s visit was documented by Zofia Corral MA, acting as scribe. CORRIE QUEEN is a 64 year old M here today for lumbar spine MRI review. Patient states that his pain is a 4 today. He states that he would like to go over the MRI results to discuss what the next step is. Patient states that he hasn't had any injections. He states that he hasn't tried any physical therapy. Says that he has had more left leg symptoms that extend down the back and side of the left leg. The patient also says that he gets pain in the left calf. Patient says that this worsens with standing or walking. Patient says that he can only stand or walk for about 10 to 15 minutes at a time before he needs to sit down due to worsening symptoms. When he sits down his pain relieves. Leaning on a cart helps with his back and leg pain. The patient also has a history of a left-sided blood clot which he says his current pain feels similar to that. The patient has a stent placement and sees Dr. Ceja. HPI from 11/09/24: Patient states that he doesn't have any pain today. He states that his lower back pain is right in the middle, but sometimes it will shoot over the right side. The pain is a sharp pain when it comes on. He states that when the pain goes in the lower back, it goes down the right leg. Says that this radiculopathy pain is intermittent. Patient states that this has been going on for about a month. He states that he thinks his back has been hurting from working. Patient states that he works in his yard, and works on his bike. He states that he went to the [place] ER about a month ago for his lower back. When he went in to the ER, they checked his kidneys, instead of his back. They took xrays on his lower back. He states that he would like to go over the xrays t (more content not included)... Normal [facility] Spine Lumbar (Routine)on Spine Lumbar (Routine) [facility] Imaging Services [address] [place] [address] Spine Lumbar (Routine) MR#: [id number] Acct: [id number] Name: CORRIE QUEEN Rep #: [id number] : 1960 M 64 From: Guy Celestin MD PCP: Dr. Justice Bailey, DO Status: REG CLI Study: Spine Lumbar (Routine) Date of Exam: 11/23/24 Exam# [id number] Ordering Dr: Sherry Venegas PROCEDURE: MRI SPINE LUMBAR (ROUTINE) 11/23/2024 REASON FOR EXAM: PAIN X1 YEAR WORSENING, RIGHT RADICULOPATHY TECHNIQUE: Procedure Code: MRISPL Modality: MR Procedure: SPINE LUMBAR (ROUTINE) Multiplanar and multisequential MRI of the lumbar spine was performed without contrast. COMPARISON: Radiographs 11/09/2024. FINDINGS: No acute fracture or subluxation. Vertebral body heights are preserved. Alignment is anatomic. No suspicious marrow lesion. Mild multilevel spondylotic changes with varying degrees of disc desiccation and narrowing, degenerative endplate marrow signal changes and anterior osteophytosis, and hypertrophic facet arthropathy. Conus appears normal in signal and morphology, terminating at L1. Normal appearance of the cauda equina. No significant abnormality in the visualized paravertebral or retroperitoneal soft tissues. Several small simple appearing bilateral renal cysts noted. L1-2: Slight dorsal annular disc bulge. No spinal canal or foraminal narrowing. L2-3: Broad-based disc bulge and ligamentum flavum/facet hypertrophy results in mild-moderate spinal canal narrowing. Mild bilateral neural foraminal narrowing. L3-4: Broad-based disc bulge and ligamentum flavum/facet hypertrophy results in mild spinal canal narrowing. Mild left and moderate right neural foraminal narrowing. L4-5: Broad-based disc bulge and ligamentum flavum/facet hypertrophy results in mild spinal canal narrowing. Moderate bilateral neural foraminal narrowing, slightly more advanced on the right. L5-S1: Broad-based disc bulge indents the ventral thecal sac, without any substantial spinal canal narrowing. Moderate right and advanced left neural foraminal stenosis. MRI/Spine Lumbar (Routine) IMPRESSION: 1. No acute abnormality. Mild multilevel spondylotic changes as described. 2. No high-grade spinal canal stenosis or cauda equina impingement. 3. Neural foraminal narrowing is most advanced on the left at L5-S1, and moderate on the right at L3-4, bilaterally at L4-5, and right L5-S1. Reading Location: [facility] CC: EDMUND Almanza; Dr. Justice Bailey DO Radiological Equipment Specialist: Signed Normal [facility] L/S Spine Bending Flex/[place] 11-09-2024 L/S Spine Bending Flex/Ext [facility] Imaging Services [address] [place] [address] L/S Spine Bending Flex/Ext MR#: [id number] Acct: [id number] Name: CORRIE QUEEN Rep #: [id number] : 1960 M 64 From: Dwaine Elmore MD PCP: Dr. Justice Bailey DO Status: DEP AMB Study: L/S Spine Bending Flex/Ext Date of Exam: 11/09 Exam# [id number] Ordering Dr: Sherry Venegas PROCEDURE: L/S SPINE BENDING FLEX/EXT 11/09/2024 REASON FOR EXAM: BACK PAIN TECHNIQUE: Procedure Code: [id number] Modality: DX Procedure: L/S SPINE BENDING FLEX/EXT COMPARISON: Lumbar spine x-ray 10/09/2024. FINDINGS: No acute bony abnormalities. No spondylolysis. Multilevel degenerate changes, for example L4-L5 and L5-S1 there is sclerotic endplates, facet joint arthropathy. Disc space narrowing at L5-S1. Left-sided vascular catheter is in place. Nonobstructive bowel-gas pattern. Atherosclerotic calcifications of the aorta. RAD/L/S Spine Bending Flex/Ext IMPRESSION: Multilevel degenerate changes without acute bony abnormalities. Reading Location: [facility] CC: EDMUND Almanza; Dr. Justice Bailey, Radiological Equipment Specialist: Signed Normal [facility] Orthopedic Visit Reporton Orthopedic Visit Report [facility] [address] [place] [address] [place] [address] OFFICE VISIT Date of Service: 11/09/24 MR#: [id number] Acct: [id number] Name: CORRIE QUEEN Rep #: [id number] : 1960 Provider: EDMUND Almanza Age/Sex: 64/M Location: [facility] Status: Signed Intake Vital Signs 10/08/24 09:03 11/09/24 09:23 Height 6 ft 2 in 6 ft 2 in Weight: 235 lb 220 lb BMI 30.2 28.2 BP 138/88 H Blood Pressure Location Lt brachial Position Sitting Respiration 16 Pulse 90 Pulse Source Monitor Temp 97.6 F L Temp Source Temporal Pulse Oximetry (%) 94 Oxygen Delivery Method room air Intake Visit Reasons: LUMBAR SPINE Chief Complaint: Lumabr spine pain Accompanied by: Self Is patient in pain?: No Allergies meperidine (From Demerol) Adverse Reaction (Intermediate, Verified 11/09/24 09:27) Nausea/Vom/Diarrhea Medications ???Medication ???Instructions ???Recorded ???Confirmed ???Type rosuvastatin 10 mg tablet (Crestor) 10 mg PO DAILY 01/30/23 5 History aspirin 81 mg tablet,delayed 81 mg PO BREAKFAST #30 tabs 11/09/24 Rx release blood pressure monitor #1 ea 03/21/23 11/09/24 Rx tadalafil 5 mg tablet 5 mg PO DAILY #90 tabs 06/02/24 Rx cabergoline 0.5 mg tablet 1 mg (2 x 0.5 mg) PO 2XW #48 tabs 07/17/24 11/09/24 Rx fenofibrate 160 mg tablet 160 mg PO DAILY #90 tabs 07/17/24 11/09/24 Rx levothyroxine 100 mcg tablet 100 mcg PO DAILY #90 tabs 07/17/24 11/09/24 Rx testosterone 2 pump topical QDAY #150 grams 11/09/24 Rx tamsulosin 0.4 mg capsule 0.4 mg PO DAILY #90 caps 09/01/24 11/09/24 Rx rivaroxaban 20 mg tablet (Xarelto) 20 mg PO QPM #90 TABLETS 5 11/09/24 Rx lidocaine 5 % topical patch 1 patch topical DAILY #15 ea 10/0311/09/24 Rx (Lidoderm) prednisone 10 mg tablet 10 mg PO DIRECTED #48 tabs 09/2511/09/24 Rx Have you fallen in the past year?: No PFSH Medical History Hypercalcemia Hypothyroidism due to [...] activity do you participate in: none HPI LUMBAR SPINE Details: This documentation accurately reflects the service provided and the decisions made by me, EDMUND Almanza 11/09/24 0923. Part of today???s visit was documented by Zofia Corral MA, acting as scribe. CORRIE QUEEN is a 64 year old M here today for lumbar spine. Patient states that he doesn't have any pain today. He states that his lower back pain is right in the middle, but sometimes it will shoot over the right side. The pain is a sharp pain when it comes on. He states that when the pain goes in the lower back, it goes down the right leg. Says that this radiculopathy pain is intermittent. Patient states that this has been going on for about a month. He states that he thinks his back has been hurting from working. Patient states that he works in his yard, and works on his bike. He states that he went to the [place] ER about a month ago for his lower back. When he went in to the ER, they checked his kidneys, instead of his back. They took xrays on his lower back. He states that he would like to go over the xrays today. Patient states that he hasn't had any surgery in the past. He states that he has injured his back a couple years ago when he was working. Patient states that he had 2 herniated disc. He went to [facility] for it, and gave him 3 cortisone injections. These injections were in 2001. Patient states that sitting for a long period of time makes the pain worse. When he is standing for a long period of time, the pain gets worse. Also had an ablation in the past. Patient states that he had 3 cortisone injections in the past, and they did last for a long period of time. He states that he will not go to pain management. Patient states that (more content not included)... Normal [facility] L/S Spine Min 4 [facility] 09-25 L/S Spine Min 4 Views [facility] Imaging Services [address] [place] [address] L/S Spine Min 4 Views MR#: [id number] Acct: [id number] Name: CORRIE QUEEN Rep #: [id number] : 1960 M 64 From: Julio Cesar castañeda MD PCP: Dr. Justice Bailey, DO Status: REG CLI Study: L/S Spine Min 4 Views Date of Exam: 10/09/24 Exam# [id number] Ordering Dr: Xiomara Johnston PROCEDURE: L/S SPINE MIN 4 VIEWS 10/09/2024 REASON FOR EXAM: BACK PAIN Chronic back pain. TECHNIQUE: L/S SPINE MIN 4 VIEWS COMPARISON: None FINDINGS: Curvature: Minimal levoconvex scoliosis. Other findings: Moderate degree of disc space narrowing at the L5-S1 level. Moderate degree of disc space narrowing at the L2-L3 and L4-L5 levels. Anterior spondylosis. Other: Facet joint osteoarthritis and hypertrophy. There is evidence of a covered stent involving the left common iliac external iliac and common femoral artery. RAD/L/S Spine Min 4 Views IMPRESSION: Disc space narrowing and spondylosis. Facet joint osteoarthritis. Reading Location: [id number] CC: RUBI Johnston; Dr. Justice Bailey DO Radiological Equipment Specialist: Signed Normal [facility] Internal Medicine Office Vis iton 10-08-2024 Internal Medicine Office Visit [facility] [address] [place] [address] [place] [address] OFFICE VISIT Date of Service: 10/08/24 MR#: [id number] Acct: [id number] Name: CORRIE QUEEN Rep #: [id number] : 1960 Provider: RUBI valles Age/Sex: 64/M Location: [facility] Status: Signed Intake Vital Signs 10/03/24 10:33 10/08/24 09:03 Height 6 ft 2 in 6 ft 2 in Weight: 235 lb BMI 30.2 BP 138/88 H Blood Pressure Location Lt brachial Position Sitting Respiration 16 Pulse 90 Pulse Source Monitor Temp 97.6 F L Temp Source Temporal Pulse Oximetry (%) 94 Oxygen Delivery Method room air Intake Visit Reasons: Lower back pain. Hip Pain Waste Machine Tender Required: No Is patient in pain?: Yes (lumbar back) Pain scale (1-10): 5 Allergies meperidine (From Demerol) Adverse Reaction (Intermediate, Verified 10/08/24 08:48) Nausea/Vom/Diarrhea Medications ???Medication ???Instructions ???Recorded ???Confirmed ???Type rosuvastatin 10 mg tablet (Crestor) 10 mg PO DAILY 01/30/23 5 History aspirin 81 mg tablet,delayed 81 mg PO BREAKFAST #30 tabs 10/08/24 Rx release blood pressure monitor #1 ea 03/21/23 10/08/24 Rx tadalafil 5 mg tablet 5 mg PO DAILY #90 tabs 06/02/24 Rx cabergoline 0.5 mg tablet 1 mg (2 x 0.5 mg) PO 2XW #48 tabs 07/17/24 10/08/24 Rx fenofibrate 160 mg tablet 160 mg PO DAILY #90 tabs 07/17/24 10/08/24 Rx levothyroxine 100 mcg tablet 100 mcg PO DAILY #90 tabs 07/17/24 10/08/24 Rx testosterone 2 pump topical QDAY #150 grams 10/08/24 Rx tamsulosin 0.4 mg capsule 0.4 mg PO DAILY #90 caps 09/01/24 10/08/24 Rx rivaroxaban 20 mg tablet (Xarelto) 20 mg PO QPM #90 TABLETS 5 10/08/24 Rx lidocaine 5 % topical patch 1 patch topical DAILY #15 ea 10/0310/08/24 Rx (Lidoderm) prednisone 10 mg tablet 10 mg PO DIRECTED #48 tabs 09/25 06/19 Rx Nurse's Note: Pt was at the er on 10/03/24 w/ low back pain, pt was concerned about kidney stones as he has a h/o them. He did a CT and no stones were found, pt states he left as he was there multiple hours. Pt states they did not treat him well, he was notified of no stones found and prescribed flexril. He states he took them a few times but they made him feel very drowsy. He does not want to take them. He states it is the R side that hurts the worst. He states it goes across whole lumbar back. He states it gets worse w/ quick movements and bending. Pt states it feels like hes been hit with a baseball bat, sore and it is stiff. Pt states at it's worst it is an 8/10. He states about a week and a half ago he was working on a bike and thinks it stiffened him up. Pt not treating w/ anything else at home or over the counter he took a few ibuprofen but it did not help much. Pt denies, radiating pain up or down back into extermities, loss of bowel or bladder control, or weakness in legs. . [facility] Medical History Hypercalcemia Hypothyroidism due to [...] HPI HPI Details: CORRIE QUEEN, is a 64 M who presents to the office today for lower back pain. He was recently seen in the emergency room for the same. Patient states pain started approximately 2 weeks ago. Prior to exacerbation of pain patient was bent over working on a motorcycle for long periods of time. He denies any fall or abrupt injury noted. Pain is worse in the lower back and on the right side of the back. Pain is relatively constant worse with movements such as bending or twisting. Pain radiates down into the right hip patient rates pain as 8 out of 10 on pain scale when it occurs it feels sharp. Patient denies nausea vomiting diarrhea loss of bowel or bladder. Patient has had to modify movements and ADLs. He states the Flexeril he was prescribed helped pain some h (more content not included)... Normal [facility] Abdomen/Pelvis W IV Cont ONL Yon 10-03-2024 Abdomen/Pelvis W IV Cont ONLY [facility] Imaging Services [address] [place] [address] Abdomen/Pelvis W IV Cont ONLY MR#: [id number] Acct: [id number] Name: CORRIE QUEEN Rep #: [id number] : 1960 M 64 From: Dwaine Elmore MD PCP: Dr. Justice Bailey, DO Status: [facility] Study: Abdomen/Pelvis W IV Cont ONLY Date of Exam: Exam# [id number] Ordering Dr: Ludy Luque MD PROCEDURE: ABDOMEN/PELVIS W IV CONT ONLY 10/03/2024 REASON FOR EXAM: FLANK PAIN, RIGHT LOWER QUADRANT PAIN TECHNIQUE: ABDOMEN/PELVIS W IV CONT ONLY Coronal and Sagittal reconstruction series were provided. CONTRAST: Isovue 370 VOLUME: 90 mL One or more dose reduction techniques were used (e.g., Automated exposure control, adjustment of the mA and/or kV according to patient size, use of iterative reconstruction technique. RADIATION DOSE SUMMARY: CTDlvol: 16.99 mGy DLP: 93.92 mGycm COMPARISON: August 02, 2024. FINDINGS: Lung bases: Dependent changes in the posterior lungs. Liver: Hepatomegaly and liver steatosis. The liver measures 20 cm in length. Gallbladder: Status post cholecystectomy. No biliary dilation. Spleen: Unremarkable. Pancreas: Unremarkable. Adrenals: Unremarkable. Kidneys: No hydronephrosis. Bilateral kidney cysts with the largest measures 2.5 cm. No nephrolithiasis. Bladder: Unremarkable. Reproductive Organs: Unremarkable. Bowel: No bowel wall thickening. No bowel obstruction. Sigmoid colon diverticulosis. Appendix: Normal. Lymph nodes: No lymphadenopathy. Vasculature: Status post placement of left iliac vein stent. Atherosclerotic calcifications of the aorta and iliac arteries. No aneurysm. Peritoneum / Retroperitoneum: No free air or free fluid. Bones: No acute bony abnormalities. CT/Abdomen/Pelvis W IV Cont ONLY IMPRESSION: No acute abdominopelvic abnormalities. Liver steatosis and hepatomegaly. Reading Location: [facility] CC: Dr. Justice Bailey DO; Dr. Ludy Luque MD Radiological Equipment Specialist: Signed Normal [facility] Absolute lymphocyte countOrd ered By: Ludy Luque on 10-03-2024 Lymphocytes Auto (Unsp spec) [#/Vol] 2.53 10*3/uL 0.83-4.51 [facility] Absolute neutrophil countOrd ered By: Ludy Luque on 10-03-2024 Neutrophils (Bld) [#/Vol] 4.4 10*3/uL 2.0-7.7 [facility] Anion gap in Serum or Plasma Ordered By: Ludy Luque on 10-03-2024 Anion gap [Moles/Vol] 10 mmol/L 5-15 [facility] Automated lymphocyte count a s percentage of total leukocytesOrdered By: Ludy Luque on 10-03-2024 Lymphocytes/100 WBC Auto (Unsp spec) 32.4 % 19-41 [facility] BUN/creatinine ratioOrdered By: Ludy Luque on 10-03-2024 Urea nitrogen/Creatinine [Mass ratio] 14.9 mg/mg 10-20 [facility] Basophil percentageOrdered B y: Ludy Luque on 10-03-2024 Basophils/100 WBC (Bld) 0.9 % 0-1 [facility] Bilirubin Test strip Ql (U)O rdered By: Ludy Luque on 10-03-2024 Bilirubin Ql (U) Negative Negative [facility] Bilirubin, totalOrdered By: Ludy Luque on 10-03-2024 Bilirubin [Mass/Vol] 0.40 mg/dL 0.00-1.30 [facility] CBC W/Diff, Automatedon 08 Absolute Lymph 2.53 X10 3/uL Normal 0.83-4.51 [facility] Comment on above: Performed By: #### L 100.0100 #### [facility] [address] [place], [address] Absolute Neut 4.4 X10 3/uL Normal 2.0-7.7 [facility] Comment on above: Performed By: #### L 100.0100 #### [facility] [address] [place], [address] Basophils/100 WBC (Bld) 0.9 % Normal 0-1 [facility] Comment on above: Performed By: #### L 100.0100 #### [facility] [address] [place], [address] Eosinophils/100 WBC (Bld) 2.3 % Normal 0-5 [facility] Comment on above: Performed By: #### L 100.0100 #### [facility] [address] [place], [address] Erythrocyte distribution width (RBC) [Ratio] 14.9 % High 11.6-14.6 [facility] Comment on above: Performed By: #### L 100.0100 #### [facility] [address] [place], [address] Hematocrit (Bld) [Volume fraction] 52.0 % Normal 40-54 [facility] Comment on above: Performed By: #### L 100.0100 #### [facility] [address] [place], [address] Hemoglobin (Bld) [Mass/Vol] 17.9 g/dL High 13.0-16.5 [facility] Comment on above: Performed By: #### L 100.0100 #### [facility] [address] [place], [address] IG% 0.600 Normal 0.0-0.9 [facility] Comment on above: Result Comment: IG% - Immature Granulocytes (promyelocytes, myelocytes and metamyelocytes) > 1% indicates that a LEFT SHIFT is Present. Performed By: #### L 100.0100 #### [facility] [address] [place], [address] Lymphocytes/100 WBC (Bld) 32.4 % Normal 19-41 [facility] Comment on above: Performed By: #### L 100.0100 #### [facility] [address] [place], [address] MCH (RBC) [Entitic mass] 31.1 pg Normal 27.0-32.0 [facility] Comment on above: Performed By: #### L 100.0100 #### [facility] [address] [place], [address] MCHC (RBC) [Mass/Vol] 34.4 g/dL Normal 32-36 [facility] Comment on above: Performed By: #### L 100.0100 #### [facility] [address] [place], [address] MCV (RBC) [Entitic vol] 90.3 fL Normal 80-94 [facility] Comment on above: Performed By: #### L 100.0100 #### [facility] [address] [place], [address] Monocytes/100 WBC (Bld) 6.9 % Normal 0-10 [facility] Comment on above: Performed By: #### L 100.0100 #### [facility] [address] [place], [address] Neutrophils/100 WBC (Bld) 56.9 % Normal 47-70 [facility] Comment on above: Performed By: #### L 100.0100 #### [facility] [address] [place], [address] Nucleated RBC (Bld) [#/Vol] 0 10*3/uL Normal 0-5 [facility] Comment on above: Performed By: #### L 100.0100 #### [facility] [address] [place], [address] Platelet mean volume (Bld) [Entitic vol] 9.6 fL Normal 6.2-12.0 [facility] Comment on above: Performed By: #### L 100.0100 #### [facility] [address] [place], [address] Platelets (Bld) [#/Vol] 226 10*3/uL Normal 150-450 [facility] Comment on above: Performed By: #### L 100.0100 #### [facility] [address] [place], [address] RBC (Bld) [#/Vol] 5.76 10*6/uL Normal 4.6-6.2 [facility] Comment on above: Performed By: #### L 100.0100 #### [facility] [address] [place], [address] RDW SD 49.4 fl High 35.1-43.9 [facility] Comment on above: Performed By: #### L 100.0100 #### [facility] [address] [place], [address] WBC (Bld) [#/Vol] 7.8 10*3/uL Normal 4.4-11.0 [facility] Comment on above: Performed By: #### L 100.0100 #### [facility] [address] [place], [address] Carbon dioxide, total [Moles /volume] in Central venous bloodOrdered By: Ludy Luque on 10-03-2024 CO2 [Moles/Vol] 21.5 mmol/L 21.0-32.0 [facility] Chloride assayOrdered By: Kelvin Luque on 10-03-2024 Chloride [Moles/Vol] 104 mmol/L 98-108 [facility] Comprehensive Metabolic Prof ilon 10-03-2024 Albumin [Mass/Vol] 4.4 g/dL Normal 3.4-4.8 [facility] Comment on above: Performed By: #### L 500.4050, L501.2450 #### [facility] [address] [place], [address] Albumin/Globulin [Mass ratio] 1.5 {ratio} Normal 0.9-2.4 [facility] Comment on above: Performed By: #### L 500.4050, L501.2450 #### [facility] [address] [place], [address] ALK PHOS 80 U/L Normal 40-129 [facility] Comment on above: Performed By: #### L 500.4050, L501.2450 #### [facility] [address] [place], [address] ALT [Catalytic activity/Vol] 28 U/L Normal <=46 [facility] Comment on above: Performed By: #### L 500.4050, L501.2450 #### [facility] [address] [place], [address] AST [Catalytic activity/Vol] 29 U/L Normal <=37 [facility] Comment on above: Performed By: #### L 500.4050, L501.2450 #### [facility] [address] [place], [address] Bilirubin [Mass/Vol] 0.40 mg/dL Normal 0.00-1.30 [facility] Comment on above: Performed By: #### L 500.4050, L501.2450 #### [facility] [address] [place], [address] BUN/CRE 14.9 RATIO Normal 10-20 [facility] Comment on above: Performed By: #### L 500.4050, L501.2450 #### [facility] [address] [place], [address] Calcium [Mass/Vol] 10.8 mg/dL Normal 7.6-11.0 [facility] Comment on above: Performed By: #### L 500.4050, L501.2450 #### [facility] [address] [place], [address] Chloride [Moles/Vol] 104 mmol/L Normal 98-108 [facility] Comment on above: Performed By: #### L 500.4050, L501.2450 #### [facility] [address] [place], [address] CO2 [Moles/Vol] 21.5 mmol/L Normal 21.0-32.0 [facility] Comment on above: Performed By: #### L 500.4050, L501.2450 #### [facility] [address] [place], [address] Creatinine [Mass/Vol] 1.02 mg/dL Normal 0.70-1.20 [facility] Comment on above: Performed By: #### L 500.4050, L501.2450 #### [facility] [address] [place], [address] ECRCL 96.38 ml/min Normal 50-250 [facility] Comment on above: Performed By: #### L 500.4050, L501.2450 #### [facility] [address] [place], [address] GAP 10 Normal 5-15 [facility] Comment on above: Performed By: #### L 500.4050, L501.2450 #### [facility] [address] [place], [address] GFR/1.73 sq M.predicted among non-blacks MDRD (S/P/Bld) [Vol rate/Area] 83 mL/min/{1.73_m2} Normal >[address] [facility] Comment on above: Result Comment: mL/m in/1.73m2 CKD-EPI Creatinine Equation (2020) Performed By: #### L 500.4050, L501.2450 #### [facility] [address] [place], [address] Globulin (S) [Mass/Vol] 3.1 g/dL Normal 2.2-4.2 [facility] Comment on above: Performed By: #### L 500.4050, L501.2450 #### [facility] [address] [place], [address] Glucose [Mass/Vol] 97 mg/dL Normal 70-99 [facility] Comment on above: Performed By: #### L 500.4050, L501.2450 #### [facility] [address] [place], [address] Potassium [Moles/Vol] 4.5 mmol/L Normal 3.3-5.1 [facility] Comment on above: Performed By: #### L 500.4050, L501.2450 #### [facility] [address] [place], [address] Sodium [Moles/Vol] 136 mmol/L Normal 133-145 [facility] Comment on above: Performed By: #### L 500.4050, L501.2450 #### [facility] [address] [place], [address] T PROT 7.5 g/dL Normal 5.9-8.4 [facility] Comment on above: Performed By: #### L 500.4050, L501.2450 #### [facility] [address] [place], [address] Urea nitrogen [Mass/Vol] 15 mg/dL Normal 4-19 [facility] Comment on above: Performed By: #### L 500.4050, L501.2450 #### [facility] [address] [place], [address] Emergency Department Summary on 10-03-2024 Emergency Department Summary [facility] Medical Records Department [address] [place] [address] Emergency Department Summary 10/03/24 MR#: [id number] Acct: [id number] Name: CORRIE QUEEN Rep #: [id number] : 1960 64 From: Ludy Luque MD PCP: Dr. Justice Bailey, DO Status:DEP ER Location: ED HPI History of Present Illness Chief Complaint: Flank Pain Narrative Narrative: Patient is a 64-year-old male presenting to the emergency department for right-sided flank pain that started a few days ago. Patient has a past medical history as below. States that he has had infections of his kidney previously. Does not think he has had any history of kidney stones. States that he also has a history of back pain. Cannot think of any injuries that specifically caused this pain. He has been taking Motrin at home for pain relief. States that the pain comes and goes but worsens when he moves around. Denies any fever, chills, nausea, vomiting, chest pain, shortness of breath, diarrhea, dysuria or hematuria. Denies any IV drug use, bowel or bladder incontinence or retention, saddle anesthesia, numbness or weakness in his legs. 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 [...] mg tablet (Crestor) 10 mg PO DAILY 01/30/2302/11/2 3 History aspirin 81 mg tablet,delayed 81 mg PO BREAKFAST #30 tabs Unknown Rx release blood pressure monitor #1 ea 03/21/23 Unknown Rx triamcinolone acetonide 0.1 % 1 applic topical BID #80 grams Unknown Rx topical cream tadalafil 5 mg tablet 5 mg PO DAILY #90 tabs 06/02/24 Un known Rx cabergoline 0.5 mg tablet 1 mg (2 x 0.5 mg) PO 2XW #48 tabs 07/17/24 Unknown Rx fenofibrate 160 mg tablet 160 mg PO DAILY #90 tabs 07/17/24 Unknown Rx levothyroxine 100 mcg tablet 100 mcg PO DAILY #90 tabs 07/17/24 Unknown Rx testosterone 2 pump topical QDAY #150 grams Unknown Rx amoxicillin 500 mg tablet 500 mg PO TID #21 tabs 08/11/24 Un known Rx tamsulosin 0.4 mg capsule 0.4 mg PO DAILY #90 caps 09/01/24 Unknown Rx rivaroxaban 20 mg tablet (Xarelto) 20 mg PO QPM #90 TABLETS 5 Unknown Rx cyclobenzaprine 10 mg tablet 10 mg PO TID PRN Muscle Spasm #20 10/03/24 Unknown Rx TABLETS lidocaine 5 % topical patch 1 patch topical DAILY #15 ea 10/03 Unknown Rx (Lidoderm) Allergy/AdvReac Type Severity Reaction Status Date / Time meperidine (From Demerol) AdvReac Intermediate Nausea/Vom/ Verified 10/03/24 10:36 Diarrhea Surgical History History of colon resection [...] you participate in: none ROS ROS ED ROS Narrative See HPI EXAM Physical Exam Narrative Exam Narrative: Vital signs: Reviewed General: Alert and oriented. No acute distress HEENT: Head is normocephalic and atraumatic, sinuses nontender, pupils equal round and reactive. Nares are patent. Oropharynx and throat exams normal. Neck: Supple without lymphadenopathy nontender Cardiovascular: Regular rate and rhythm, no murmurs. No rubs or gallops. Normal S1 and S2 Respiratory: Clear to auscultation bilaterally. No wheezes, rales, rhonchi Abdominal: Soft, mildly tender to palpation in the right lower quadrant. Normal bowel sounds. No guarding or rebound. Nonsurgical abdomen Extremities: No tenderness. No bruising. Normal range of motion. Normal sensation. No midline cervical, thoracic or lumbar spinal tenderness to palpation. There is some mild right CVA tenderness to palpation. There is bilateral paraspinal lower thoracic upper lumbar spinal tenderness to palpation. There is no erythema. Skin: No rash or redness. Neurological: Cranial nerves II through XII are grossly intact. Normal strength and sensation. Normal cerebellar function The rest of the physical exam is unremarkable Const Vital Signs: (more content not included)... Normal [facility] Eosinophil percentageOrdered By: Ludy Luque on 10-03-2024 Eosinophils/100 WBC (Bld) 2.3 % 0-5 [facility] Erythrocyte distribution wid th ratioOrdered By: Ludy Luque on 10-03-2024 Erythrocyte distribution width (RBC) [Ratio] 14.9 % High 11.6-14.6 [facility] Erythrocyte distribution wid th standard deviationOrdered By: Ludy Luque on 10-03-2024 Erythrocyte distribution width (RBC) [Ratio] 49.4 fl High 35.1-43.9 [facility] Glomerular filtration rate ( GFR) estimation/1.73 sq m using serum, plasma, or whole bOrdered By: Ludy Luque on 10-03-2024 GFR/1.73 sq M.predicted among non-blacks MDRD (S/P/Bld) [Vol rate/Area] 83 mL/min/{1.73_m2} >[address] [facility] Comment on above: mL/min/1.73m2 CKD-EP I Creatinine Equation (2020) Hematocrit Auto (Bld) [Volum e fraction]Ordered By: Ludy Luque on 10-03-2024 Hematocrit (Bld) [Volume fraction] 52.0 % 40-54 [facility] Hemoglobin measurementOrdere d By: Ludy Luque on 10-03-2024 Hemoglobin (Bld) [Mass/Vol] 17.9 g/dL High 13.0-16.5 [facility] Immature granulocytes/100 WB C Auto (Bld)Ordered By: Ludy Luque on 10-03-2024 Immature granulocytes/100 WBC (Bld) 0.600 % 0.0-0.9 [facility] Comment on above: IG% - Immature Granu locytes (promyelocytes, myelocytes and metamyelocytes) > 1% indicates that a LEFT SHIFT is Present. Ketones Test strip Ql (U)Ord ered By: Ludy Luque on 10-03-2024 Ketones Ql (U) Negative Negative [facility] - Chemistry and C hemistry - challengeOrdered By: Ludy Luque on 10-03-2024 AST [Catalytic activity/Vol] 29 U/L <38 [facility] Lipaseon 10-03-2024 Lipase [Catalytic activity/Vol] 27 U/L Normal 13-75 [facility] Comment on above: Result Comment: Plea se note: LIPASE revised reference range effective 22. New Lipase methodology. Expected to produce lower values than the previous assay method. NEW Reference Range: 13 - 75 U/L Performed By: #### L 500.4050, L501.2450 #### [facility] [address] [place], [address] Lipase measurementOrdered By : Ludy Luque on 10-03-2024 Lipase [Catalytic activity/Vol] 27 U/L 13-75 [facility] Comment on above: Please note:LIPASE r evised reference range effective 22. New Lipase methodology. Expected to produce lower values than the previous assay method. NEW Reference Range: 13 - 75 U/L MCV (mean corpuscular volume ) determinationOrdered By: Ludy Luque on 10-03-2024 MCV (RBC) [Entitic vol] 90.3 fL 80-94 [facility] Mean corpuscular hemoglobin (MCH) determinationOrdered By: Ludy Luque on 10-03-2024 MCH (RBC) [Entitic mass] 31.1 pg 27.0-32.0 [facility] Mean corpuscular hemoglobin concentration (MCHC) determinationOrdered By: Ludy Luque on 10-03-2024 MCHC (RBC) [Mass/Vol] 34.4 g/dL 32-36 [facility] Mean platelet volume determi nationOrdered By: Ludy Luque on 10-03-2024 Platelet mean volume (Bld) [Entitic vol] 9.6 fL 6.2-12.0 [facility] Microscopic analysis of urin e for red blood cells (RBC)Ordered By: Ludy Luque on 10-03-2024 Microscopic analysis of urine for red blood cells (RBC) 0 SEEN /hpf 0-5 [facility] Monocyte percentageOrdered B y: Ludy Luque on 10-03-2024 Monocytes/100 WBC (Bld) 6.9 % 0-10 [facility] Mucus LM Ql (Urine sed)Order ed By: Ludy Luque on 10-03-2024 Mucus Ql (Urine sed) 0 SEEN /hpf [facility] Neutrophil percentageOrdered By: Ludy Luque on 10-03-2024 Neutrophils/100 WBC (Bld) 56.9 % 47-70 [facility] Nitrite Test strip Ql (U)Ord ered By: Ludy Luque on 10-03-2024 Nitrite Ql (U) Negative Negative [facility] Nucleated red blood cell per centageOrdered By: Ludy Luque on 10-03-2024 Nucleated RBC/100 WBC (Bld) [Ratio] 0 % 0-5 [facility] Platelet countOrdered By: Kelvin Luque on 10-03-2024 Platelets (Bld) [#/Vol] 226 10*3/uL 150-450 [facility] Potassium measurement (mass/ volume)Ordered By: Ludy Luque on 10-03-2024 Potassium (Unsp spec) [Mass/Vol] 4.5 mmol/L 3.3-5.1 [facility] Protein Test strip Ql (U)Ord ered By: Ludy Luque on 10-03-2024 Protein Ql (U) Negative Negative [facility] RBC Auto (Bld) [#/Vol]Ordere d By: Ludy Luque on 10-03-2024 RBC (Bld) [#/Vol] 5.76 10*6/uL 4.6-6.2 [facility] Serum creatinine measurement (mass/volume)Ordered By: Ludy Luque on 10-03-2024 Creatinine [Mass/Vol] 1.02 mg/dL 0.70-1.20 [facility] Serum globulin measurementOr dered By: Ludy Luque on 10-03-2024 Globulin (S) [Mass/Vol] 3.1 g/dL 2.2-4.2 [facility] Serum glucose measurement (m ass/volume)Ordered By: Ludy Luque on 10-03-2024 Glucose [Mass/Vol] 97 mg/dL 70-99 [facility] Serum or plasma alanine koo otransferase (ALT) measurementOrdered By: Ludy Luque on 10-03-2024 ALT [Catalytic activity/Vol] 28 U/L <47 [facility] Serum or plasma albumin jamila urement (mass/volume)Ordered By: Ludy Luque on 10-03-2024 Albumin [Mass/Vol] 4.4 g/dL 3.4-4.8 [facility] Serum or plasma albumin/glob ulin mass ratioOrdered By: Ludy Luque on 10-03-2024 Albumin/Globulin [Mass ratio] 1.5 {ratio} 0.9-2.4 [facility] Serum or plasma alkaline nohemi sphatase measurementOrdered By: Ludy Luque on 10-03-2024 ALP [Catalytic activity/Vol] 80 U/L 40-129 [facility] Serum or plasma calcium jamila urement (mass/volume)Ordered By: Ludy Luque on 10-03-2024 Calcium [Mass/Vol] 10.8 mg/dL 7.6-11.0 [facility] Serum or plasma urea nitroge n measurement (mass/volume)Ordered By: Ludy Luque on 10-03-2024 Urea nitrogen [Mass/Vol] 15 mg/dL 4-19 [facility] Sodium levelOrdered By: Ryan Luque on 10-03-2024 Sodium [Moles/Vol] 136 mmol/L 133-145 [facility] Squamous epithelial cells de tection in urine sediment by light microscopyOrdered By: Ludy Luque on 10-03-2024 Epithelial cells.squamous LM Ql (Urine sed) 5-10 SEEN /hpf 0-5 [facility] Total proteinOrdered By: Suzette Luque on 10-03-2024 Protein [Mass/Vol] 7.5 g/dL 5.9-8.4 [facility] Urinalysis, Completeon 10-03 EPI,SQUAMOUS 5-10 SEEN Normal 0-5 [facility] Comment on above: Order Comment: CLEAN CATCH Performed By: #### L 400.0001 #### [facility] [address] [place], [address] BACTERIA 0 SEEN Normal None Seen [facility] Comment on above: Order Comment: CLEAN CATCH Performed By: #### L 400.0001 #### [facility] [address] [place], [address] Mucus Ql (Urine sed) 0 SEEN Normal [facility] Comment on above: Order Comment: CLEAN CATCH Performed By: #### L 400.0001 #### [facility] [address] [place], [address] RBC 0 SEEN Normal 0-5 [facility] Comment on above: Order Comment: CLEAN CATCH Performed By: #### L 400.0001 #### [facility] [address] [place], [address] WBC 0 SEEN Normal 0-5 [facility] Comment on above: Order Comment: CLEAN CATCH Performed By: #### L 400.0001 #### [facility] [address] [place], [address] Urine clarityOrdered By: Suzette Luque on 10-03-2024 Clarity (U) Clear Clear [facility] Urine color determinationOrd ered By: Ludy Luque on 10-03-2024 Color (U) Yellow Yellow [facility] Urine glucose detectionOrder ed By: Ludy Luque on 10-03-2024 Glucose Ql (U) Normal mg/dl Normal [facility] Urine leukocyte esterase det ection by dipstickOrdered By: Ludy Luque on 10-03-2024 Leukocyte esterase Test strip Ql (U) Negative Negative [facility] Urine pHOrdered By: Ludy butts on 10-03-2024 pH (U) 6.0 [pH] 5.0 - 8.0 [facility] Urine sediment bacteria coun t by microscopy (number/high power field)Ordered By: Ludy Luque on 10-03-2024 Bacteria LM.HPF (Urine sed) [#/Area] 0 /[HPF] None Seen [facility] Urine specific gravity measu rementOrdered By: Ludy Luque on 10-03-2024 Specific gravity (U) [Rel density] 1.020 1.002-1.030 [facility] Urine urobilinogen measureme ntOrdered By: Ludy Luque on 10-03-2024 Urobilinogen Ql (U) Normal mg/dl Normal [facility] White blood cell (WBC) count Ordered By: Ludy Luque on 10-03-2024 WBC (Bld) [#/Vol] 7.8 10*3/uL 4.4-11.0 [facility] White blood cell countOrdere d By: Ludy Luque on 10-03-2024 White blood cell count 0 SEEN /hpf 0-5 [facility] Internal Medicine Office Vis iton 08-11-2024 Internal Medicine Office Visit [facility] [address] [place], [place] [address] OFFICE VISIT Date of Service: 08/11/24 MR#: [id number] Acct: [id number] Name: CORRIE QUEEN Rep #: [id number] : 1960 Provider: Dr. Justice grullon DO Age/Sex: 63/M Location: [facility] Status: Signed with Addenda ADDENDUM by SHERIDAN Gonzalez on 08/11/24 at 1650 Office Procedure Documentation entered by Estefany Gonzalez MA 08/11/24 16:50: Ortho Injections Injections Is this a patient provided medication?: No Office Meds Kenalog 40 mg/mL suspension for injection Performing Provider: Justice Bailey DO Performing Location: [facility] Administered by: Estefany Gonzalez MA on 08/11/24 16:48 Dose Route Admin Location Dispensed Lot Number Expiration Date [place] Man ufacturer 40 mg IM RGM 1 mL [id number] 05/26/25 2948-0486-52 [facility] [employer] Date cc: * Signed Intake Vital [...] RIGHT Chief Complaint: eyes pressure and congestion Waste 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 Normal [facility] Abdomen/Pelvis without Conto n 08-02-2024 Abdomen/Pelvis without Cont [facility] Imaging Services [address] [place] [address] Abdomen/Pelvis without Cont MR#: [id number] Acct: [id number] Name: CORRIE QUEEN Rep #: [id number] : 1960 M 63 From: Geovani montano MD PCP: Dr. Justice Bailey, DO Status: REG ER Study: Abdomen/Pelvis without Cont Date of Exam: 10/19 Exam# [id number] Ordering Dr: Rusty Hawkins DO PROCEDURE: ABDOMEN/PELVIS [...] 2. Hepatosplenomegaly and diffuse steatosis. [facility]: Dr. Justice Bailey, DO; Dr. Rusty Hawkins, DO Radiological Equipment Specialist: Signed Normal [facility] Absolute lymphocyte countOrd ered By: Rusty Hawkins on 08-02-2024 Lymphocytes Auto (Unsp spec) [#/Vol] 1.89 10*3/uL 0.83-4.51 [facility] Absolute neutrophil countOrd ered By: Rusty Hawkins on 08-02-2024 Neutrophils (Bld) [#/Vol] 7.6 10*3/uL 2.0-7.7 [facility] Anion gap in Serum or Plasma Ordered By: Rusty Hawkins on 08-02-2024 Anion gap [Moles/Vol] 11 mmol/L 5-15 [facility] Automated lymphocyte count a s percentage of total leukocytesOrdered By: Rusty Hawkins on 08-02-2024 Lymphocytes/100 WBC Auto (Unsp spec) 17.5 % Low 19-41 [facility] BUN/creatinine ratioOrdered By: Rusty Hawkins on 08-02-2024 Urea nitrogen/Creatinine [Mass ratio] 15.9 mg/mg 10- [facility] Basic Metabolic Profile (BMP )on 08-02-2024 BUN/CRE 15.9 RATIO Normal -20 [facility] Comment on above: Performed By: #### L 100.0100, L500.2500 ####[facility] [address] [place], [address] Calcium [Mass/Vol] 10.3 mg/dL Normal 7.6-11.0 [facility] Comment on above: Performed By: #### L 100.0100, L500.2500 ####[facility] [address] [place], [address] Chloride [Moles/Vol] 104 mmol/L Normal 98-108 [facility] Comment on above: Performed By: #### L 100.0100, L500.2500 ####[facility] [address] [place], [address] CO2 [Moles/Vol] 23.0 mmol/L Normal 21.0-32.0 [facility] Comment on above: Performed By: #### L 100.0100, L500.2500 ####[facility] [address] [place], [address] Creatinine [Mass/Vol] 0.94 mg/dL Normal 0.70-1.20 [facility] Comment on above: Performed By: #### L 100.0100, L500.2500 ####[facility] [address] [place], [address] ECRCL 105.56 ml/min Normal 50-250 [facility] Comment on above: Performed By: #### L 100.0100, L500.2500 ####[facility] [address] [place], [address] GAP 11 Normal 5-15 [facility] Comment on above: Performed By: #### L 100.0100, L500.2500 ####[facility] [address] [place], [address] GFR/1.73 sq M.predicted among non-blacks MDRD (S/P/Bld) [Vol rate/Area] 92 mL/min/{1.73_m2} Normal >[address] [facility] Comment on above: Result Comment: mL/m in/1.73m2 CKD-EPI Creatinine Equation (2020) Performed By: #### L 100.0100, L500.2500 ####[facility] [address] [place], [address] Glucose [Mass/Vol] 105 mg/dL High 70-99 [facility] Comment on above: Performed By: #### L 100.0100, L500.2500 ####[facility] [address] [place], [address] Potassium [Moles/Vol] 4.1 mmol/L Normal 3.3-5.1 [facility] Comment on above: Performed By: #### L 100.0100, L500.2500 ####[facility] [address] [place], [address] Sodium [Moles/Vol] 138 mmol/L Normal 133-145 [facility] Comment on above: Performed By: #### L 100.0100, L500.2500 ####[facility] [address] [place], [address] Urea nitrogen [Mass/Vol] 15 mg/dL Normal 4-19 [facility] Comment on above: Performed By: #### L 100.0100, L500.2500 ####[facility] [address] [place], [address] Basophil percentageOrdered B y: Remus Ross on 08-02-2024 Basophils/100 WBC (Bld) 0.8 % 0-1 [facility] Bilirubin Test strip Ql (U)O rdered By: Remus Ungtesha on 08-02-2024 Bilirubin Ql (U) Negative Negative [facility] CBC W/Diff, Automatedon Absolute Lymph 1.89 X10 3/uL Normal 0.83-4.51 [facility] Comment on above: Performed By: #### L 100.0100, L500.2500 ####[facility] [address] [place], [address] Absolute Neut 7.6 X10 3/uL Normal 2.0-7.7 [facility] Comment on above: Performed By: #### L 100.0100, L500.2500 ####[facility] [address] [place], [address] Basophils/100 WBC (Bld) 0.8 % Normal 0-1 [facility] Comment on above: Performed By: #### L 100.0100, L500.2500 ####[facility] [address] [place], [address] Eosinophils/100 WBC (Bld) 1.9 % Normal 0-5 [facility] Comment on above: Performed By: #### L 100.0100, L500.2500 ####[facility] [address] [place], [address] Erythrocyte distribution width (RBC) [Ratio] 14.1 % Normal 11.6-14.6 [facility] Comment on above: Performed By: #### L 100.0100, L500.2500 ####[facility] [address] [place], [address] Hematocrit (Bld) [Volume fraction] 49.7 % Normal 40-54 [facility] Comment on above: Performed By: #### L 100.0100, L500.2500 ####[facility] [address] [place], [address] Hemoglobin (Bld) [Mass/Vol] 16.8 g/dL High 13.0-16.5 [facility] Comment on above: Performed By: #### L 100.0100, L500.2500 ####[facility] [address] [place], [address] IG% 0.400 Normal 0.0-0.9 [facility] Comment on above: Result Comment: IG% - Immature Granulocytes (promyelocytes, myelocytes and metamyelocytes) > 1% indicates that a LEFT SHIFT is Present. Performed By: #### L 100.0100, L500.2500 ####[facility] [address] [place], [address] Lymphocytes/100 WBC (Bld) 17.5 % Low 19-41 [facility] Comment on above: Performed By: #### L 100.0100, L500.2500 ####[facility] [address] [place], [address] MCH (RBC) [Entitic mass] 29.8 pg Normal 27.0-32.0 [facility] Comment on above: Performed By: #### L 100.0100, L500.2500 ####[facility] [address] [place], [address] MCHC (RBC) [Mass/Vol] 33.8 g/dL Normal 32-36 [facility] Comment on above: Performed By: #### L 100.0100, L500.2500 ####[facility] [address] [place], [address] MCV (RBC) [Entitic vol] 88.1 fL Normal 80-94 [facility] Comment on above: Performed By: #### L 100.0100, L500.2500 ####[facility] [address] [place], [address] Monocytes/100 WBC (Bld) 8.9 % Normal 0-10 [facility] Comment on above: Performed By: #### L 100.0100, L500.2500 ####[facility] [address] [place], [address] Neutrophils/100 WBC (Bld) 70.5 % High 47-70 [facility] Comment on above: Performed By: #### L 100.0100, L500.2500 ####[facility] [address] [place], [address] Nucleated RBC (Bld) [#/Vol] 0 10*3/uL Normal 0-5 [facility] Comment on above: Performed By: #### L 100.0100, L500.2500 ####[facility] [address] [place], [address] Platelet mean volume (Bld) [Entitic vol] 9.1 fL Normal 6.2-12.0 [facility] Comment on above: Performed By: #### L 100.0100, L500.2500 ####[facility] [address] [place], [address] Platelets (Bld) [#/Vol] 263 10*3/uL Normal 150-450 [facility] Comment on above: Performed By: #### L 100.0100, L500.2500 ####[facility] [address] [place], [address] RBC (Bld) [#/Vol] 5.64 10*6/uL Normal 4.6-6.2 [facility] Comment on above: Performed By: #### L 100.0100, L500.2500 ####[facility] [address] [place], [address] RDW SD 45.4 fl High 35.1-43.9 [facility] Comment on above: Performed By: #### L 100.0100, L500.2500 ####[facility] [address] [place], [address] WBC (Bld) [#/Vol] 10.8 10*3/uL Normal 4.4-11.0 [facility] Comment on above: Performed By: #### L 100.0100, L500.2500 ####[facility] [address] [place], [address] Carbon dioxide, total [Moles /volume] in Central venous bloodOrdered By: Rusty Hawkins on 08-02-2024 CO2 [Moles/Vol] 23.0 mmol/L 21.0-32.0 [facility] Chloride assayOrdered By: Karine Hawkins on 08-02-2024 Chloride [Moles/Vol] 104 mmol/L 98-108 [facility] Emergency Department Summary on 08-02-2024 Emergency Department Summary [facility] Medical Records Department [address] [place] [address] Emergency Department Summary 08/02/24 MR#: [id number] Acct: [id number] Name: CORRIE QUEEN Rep #: [id number] : 1960 63 From: Rusty Hawkins DO [...] related to that. Patient's had prior cholecystectomy. 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 Normal [facility] Eosinophil percentageOrdered By: Rusty Hawkins on 08-02-2024 Eosinophils/100 WBC (Bld) 1.9 % 0-5 [facility] Erythrocyte distribution wid th ratioOrdered By: [facility] Campustesha on 08-02-2024 Erythrocyte distribution width (RBC) [Ratio] 14.1 % 11.6-14.6 [facility] Erythrocyte distribution wid th standard deviationOrdered By: [facility] on 08-02-2024 Erythrocyte distribution width (RBC) [Ratio] 45.4 fl High 35.1-43.9 [facility] Glomerular filtration rate ( GFR) estimation/1.73 sq m using serum, plasma, or whole bOrdered By: Rusty Hawkins on 08-02-2024 GFR/1.73 sq M.predicted among non-blacks MDRD (S/P/Bld) [Vol rate/Area] 92 mL/min/{1.73_m2} >[address] [facility] Comment on above: mL/min/1.73m2 CKD-EP I Creatinine Equation (2020) Hematocrit Auto (Bld) [Volum e fraction]Ordered By: [facility] Hawkins on 08-02-2024 Hematocrit (Bld) [Volume fraction] 49.7 % 40-54 [facility] Hemoglobin measurementOrdere d By: [facility] Health[facility] Hawkins on 08-02-2024 Hemoglobin (Bld) [Mass/Vol] 16.8 g/dL High 13.0-16.5 [facility] Immature granulocytes/100 WB C Auto (Bld)Ordered By: Rusty Hawkins on 08-02-2024 Immature granulocytes/100 WBC (Bld) 0.400 % 0.0-0.9 [facility] Comment on above: IG% - Immature Granu locytes (promyelocytes, myelocytes and metamyelocytes) > 1% indicates that a LEFT SHIFT is Present. Ketones Test strip Ql (U)Ord ered By: Rusty Hawkins on 08-02-2024 Ketones Ql (U) Negative Negative [facility] MCV (mean corpuscular volume ) determinationOrdered By: Rusty Hawkins on 08-02-2024 MCV (RBC) [Entitic vol] 88.1 fL 80-94 [facility] Mean corpuscular hemoglobin (MCH) determinationOrdered By: Rusty Ungtesha on 08-02-2024 MCH (RBC) [Entitic mass] 29.8 pg 27.0-32.0 [facility] Mean corpuscular hemoglobin concentration (MCHC) determinationOrdered By: Rusty Ungtesha on 08-02-2024 MCHC (RBC) [Mass/Vol] 33.8 g/dL 32-36 [facility] Mean platelet volume determi nationOrdered By: Rusty Ungtesha on 08-02-2024 Platelet mean volume (Bld) [Entitic vol] 9.1 fL 6.2-12.0 [facility] Microscopic analysis of urin e for red blood cells (RBC)Ordered By: Rusty Hawkins on 08-02-2024 Microscopic analysis of urine for red blood cells (RBC) 0-5 SEEN /hpf 0-5 [facility] Monocyte percentageOrdered B y: Rusty Hawkins on 08-02-2024 Monocytes/100 WBC (Bld) 8.9 % 0-10 [facility] Mucus LM Ql (Urine sed)Order ed By: Rusty Hawkins on 08-02-2024 Mucus Ql (Urine sed) 0 SEEN /hpf [facility] Neutrophil percentageOrdered By: Rusty Ungtesha on 08-02-2024 Neutrophils/100 WBC (Bld) 70.5 % High 47-70 [facility] Nitrite Test strip Ql (U)Ord ered By: Rusty Ungtesha on 08-02-2024 Nitrite Ql (U) Negative Negative [facility] Nucleated red blood cell per centageOrdered By: Rusty Ungtesha on 08-02-2024 Nucleated RBC/100 WBC (Bld) [Ratio] 0 % 0-5 [facility] Platelet countOrdered By: Karine Hawkins on 08-02-2024 Platelets (Bld) [#/Vol] 263 10*3/uL 150-450 [facility] Potassium measurement (mass/ volume)Ordered By: Rusty Hawkins on 08-02-2024 Potassium (Unsp spec) [Mass/Vol] 4.1 mmol/L 3.3-5.1 [facility] Protein Test strip Ql (U)Ord ered By: Rusty Hawkins on 08-02-2024 Protein Ql (U) 15 mg/dl High Negative [facility] RBC Auto (Bld) [#/Vol]Ordere d By: Rusty Hawkins on 08-02-2024 RBC (Bld) [#/Vol] 5.64 10*6/uL 4.6-6.2 [facility] Serum creatinine measurement (mass/volume)Ordered By: Rusty Hawkins on 08-02-2024 Creatinine [Mass/Vol] 0.94 mg/dL 0.70-1.20 [facility] Serum glucose measurement (m ass/volume)Ordered By: Rusty Hawkins on 08-02-2024 Glucose [Mass/Vol] 105 mg/dL High 70-99 [facility] Serum or plasma calcium jamila urement (mass/volume)Ordered By: Rusty Hawkins on 08-02-2024 Calcium [Mass/Vol] 10.3 mg/dL 7.6-11.0 [facility] Serum or plasma urea nitroge n measurement (mass/volume)Ordered By: Rusty Hawkins on 08-02-2024 Urea nitrogen [Mass/Vol] 15 mg/dL 4-19 [facility] Sodium levelOrdered By: Daron Hawkins on 08-02-2024 Sodium [Moles/Vol] 138 mmol/L 133-145 [facility] Squamous epithelial cells de tection in urine sediment by light microscopyOrdered By: Rusty Hawkins on 08-02-2024 Epithelial cells.squamous LM Ql (Urine sed) 10-25 SEEN /hpf 0-5 [facility] Urinalysis, Completeon 08-02 EPI,SQUAMOUS 10-25 SEEN Normal 0-5 [facility] Comment on above: Order Comment: CLEAN CATCH Performed By: #### L 400.0001 ####[facility] [address] [place], [address] RBC 0-5 SEEN Normal 0-5 [facility] Comment on above: Order Comment: CLEAN CATCH Performed By: #### L 400.0001 ####[facility] [address] [place], [address] WBC 0-5 SEEN Normal 0-5 [facility] Comment on above: Order Comment: CLEAN CATCH Performed By: #### L 400.0001 ####[facility] [address] [place], [address] BACTERIA 0 SEEN Normal None Seen [facility] Comment on above: Order Comment: CLEAN CATCH Performed By: #### L 400.0001 ####[facility] [address] [place], [address] Mucus Ql (Urine sed) 0 SEEN Normal [facility] Comment on above: Order Comment: CLEAN CATCH Performed By: #### L 400.0001 ####[facility] [address] [place], [place], [address] Urine clarityOrdered By: Coreen Hawkins on 08-02-2024 Clarity (U) Clear Clear [facility] Urine color determinationOrd ered By: Rusty Hawkins on 08-02-2024 Color (U) Yellow Yellow [facility] Urine glucose detectionOrder ed By: Rusty Hawkins on 08-02-2024 Glucose Ql (U) Normal mg/dl Normal [facility] Urine leukocyte esterase det ection by dipstickOrdered By: Rusty Hawkins on 08-02-2024 Leukocyte esterase Test strip Ql (U) 25 /ul High Negative [facility] Urine pHOrdered By: Rusty Esteves gur on 08-02-2024 pH (U) 6.0 [pH] 5.0 - 8.0 [facility] Urine sediment bacteria coun t by microscopy (number/high power field)Ordered By: Rusty Hawkins on 08-02-2024 Bacteria LM.HPF (Urine sed) [#/Area] 0 /[HPF] None Seen [facility] Urine specific gravity measu rementOrdered By: Rusty Hawkins on 08-02-2024 Specific gravity (U) [Rel density] 1.015 1.002-1.030 [facility] Urine urobilinogen measureme ntOrdered By: Rusty Hawkins on 08-02-2024 Urobilinogen Ql (U) Normal mg/dl Normal [facility] White blood cell (WBC) count Ordered By: Rusty Hawkins on 08-02-2024 WBC (Bld) [#/Vol] 10.8 10*3/uL 4.4-11.0 [facility] White blood cell countOrdere d By: Rusty Hawkins on 08-02-2024 White blood cell count 0-5 SEEN /hpf 0-5 [facility] Endocrinology Visit Reporton 07-17-2024 Endocrinology Visit Report [facility] [address] [place] [address]. [address] [place] [address] OFFICE VISIT Date of Service: 07/17/24 MR#: [id number] Acct: [id number] Name: CORRIE QUEEN Rep #: [id number] : 1960 Provider: Linette Baron Age/Sex: 63/M Location: [facility] Status: Signed Intake Vital Signs 03/31/24 10:21 [...] itchy eyes (more content not included)... Normal [facility] Urine Cultureon 06-02-2024 URC Pending Streptococcus viridans group Russell Count 50,000-80,000 Streptococcus viridans group: REACTION Ampicillin Islt JADE <=0.25 Penicillin G Islt JADE <=0.06 S Cefotaxime Islt JADE <=0.12 S cefTRIAXone Islt JADE <=0.12 S Linezolid Islt JADE <=2 S Vancomycin Islt JADE 0.5 S Normal [facility] Comment on above: Performed By: #### M 100.4677 ####[facility] [address] [place], [place], [id number] Laboratory - Chemistry and C hemistry - challengeOrdered By: Stanislaw Alejandra on 05-28-2024 Bilirubin Ql (U) Negative [facility] Glucose Ql (U) Negative [facility] Ketones Ql (U) Trace (5) [facility] pH (U) 5.0 [pH] [facility] Specific gravity (U) [Rel density] 1.015 [facility] Urobilinogen (U) [Mass/Vol] 0.6250609 mg/dL [facility] Laboratory - Hematology and Cell countsOrdered By: Stanislaw Alejandra on 05-28-2024 Hemoglobin Ql (U) Negative [facility] Laboratory - Specimen inform ationOrdered By: Stanislaw Alejandra on 05-28-2024 Clarity (U) Clear [facility] Color (U) DARK YELLOW [facility] Laboratory - UrinalysisOrder ed By: Stanislaw Alejandra on 05-28-2024 Nitrite Ql (U) Negative [facility] Protein Ql (U) Negative [facility] No Panel InformationOrdered By: Stanislaw Alejandra on 05-28-2024 Urine Leukocytes Negatve [facility] Urine Non-Hemolyzed Blood Negative [facility] Urgent Care Visit Reporton 0 05-28-2024 Urgent Care Visit Report [facility] [address], [address] [place] [address] OFFICE VISIT Date of Service: 05/28/24 MR#: [id number] Acct: [id number] Name: CORRIE QUEEN Rep #: [id number] : 1960 Provider: EDMUND Arita Age/Sex: 63/M Location: [facility] Status: Signed Intake Vital Signs 03/31/24 10:21 05/28/24 12:18 Height 6 ft 2 in 6 ft 2 in BP 122/76 H Position Sitting Pulse 80 Temp 97.9 F Temp Source Oral Pulse Oximetry (%) 95 Oxygen Delivery Method room air Intake Visit Reasons: CONCERN FOR UTI Accompanied by: Self Allergies meperidine (From Demerol) Adverse Reaction (Intermediate, Verified 03/31/24 10:19) Nausea/Vom/Diarrhea Nurse's Note: Patient Right kidney has been hurting and his urine has been dark. Patient states he has a kidney disease. Patient states this has been going on a few weeks. [facility] Medical History Sebaceous cyst of scrotum Kidney [...] MA on 05/28/24 13:02 Off Ur Spec [place] 1.015 Last Edit by Mary Alberto MA [...] Urine Tod (more content not included)... Normal [facility] Urine cultureOrdered By: [place] Alejandra on 05-28-2024 Bacteria identified Cx Nom (U) Streptococcus viridans group Abnormal [facility] TFTESTon 04-25-2024 Free Testost Direct 5.5 pg/mL Low 6.6-18.1 [facility] Comment on above: Result Comment: Perf ormed At: [address] [id number] Willi Adams MD Ph:[phone] Performed At: [address] [id number] Pau Carranza PhD Ph:[phone] Performed By: #### C AUR #### [place] [address] #### CRUR #### [address] [address] Testosterone Lvl 360 ng/dL Normal 264-916 [facility] Comment on above: Result Comment: Adul t male reference interval is based on a population of healthy nonobese males (BMI <30) between 19 and 39 years old. erica Joseph.al. JCEM 2017,102;0995-4432. PMID: [id number]. Performed By: #### C AUR #### [place] [address] #### CRUR #### [address] [address] Yamileth 04-22-2024 TSI 23.80 IU/L High 0.00-0.55 [facility] Comment on above: Result Comment: Perf ormed At: [address] [id number] Willi Adams MD Ph:[phone] Performed By: #### C AUR #### [place] [address] #### CRUR #### [address] [address] .Auto Diffon 04-20-2024 Basophil, Absolute 0.1 10 3/mcL Normal 0.0-0.2 [facility] Comment on above: Performed By: #### V IDH, ANEU, LIPID, [id number], FT3, FT4, GFR, ADIFF, [id number], CAION, TSH, CBC, CMP #### [place] [address] #### PROL, PTH #### [address] [address] Basophils/100 WBC (Bld) 1.0 % Normal 0.0-2.5 [facility] Comment on above: Performed By: #### V IDH, ANEU, LIPID, [id number], FT3, FT4, GFR, ADIFF, [id number], CAION, TSH, CBC, CMP #### [place] [address] #### PROL, PTH #### [address] [address] Eosinophil, Absolute 0.3 10 3/mcL Normal 0.0-0.7 [facility] Comment on above: Performed By: #### V IDH, ANEU, LIPID, [id number], FT3, FT4, GFR, ADIFF, [id number], CAION, TSH, CBC, CMP #### [place] [address] #### PROL, PTH #### [address] [address] Eosinophils/100 WBC (Bld) 4.3 % Normal 0.0-7.0 [facility] Comment on above: Performed By: #### V IDH, ANEU, LIPID, [id number], FT3, FT4, GFR, ADIFF, [id number], CAION, TSH, CBC, CMP #### [address] [address] #### PROL, PTH #### [address] [address] Lymphocyte, Absolute 2.1 10 3/mcL Normal 0.9-4.3 [facility] Comment on above: Performed By: #### V IDH, ANEU, LIPID, [id number], FT3, FT4, GFR, ADIFF, [id number], CAION, TSH, CBC, CMP #### [address] [address] #### PROL, PTH #### [address] [address] Lymphocytes/100 WBC (Bld) 28.0 % Normal 20.0-40.0 [facility] Comment on above: Performed By: #### V IDH, ANEU, LIPID, [id number], FT3, FT4, GFR, ADIFF, [id number], CAION, TSH, CBC, CMP #### [address] [address] #### PROL, PTH #### [place] [id number] Monocyte, Absolute 0.8 10 3/mcL Normal 0.1-1.4 [facility] Comment on above: Performed By: #### V IDH, ANEU, LIPID, [id number], FT3, FT4, GFR, ADIFF, [id number], CAION, TSH, CBC, CMP #### [place] [address] #### PROL, PTH #### [place] [address] Monocytes/100 WBC (Bld) 10.4 % Normal 2.0-13.0 [facility] Comment on above: Performed By: #### V IDH, ANEU, LIPID, [id number], FT3, FT4, GFR, ADIFF, [id number], CAION, TSH, CBC, CMP #### [place] [address] #### PROL, PTH #### [place] [id number] Neutrophils/100 WBC (Bld) 56.3 % Normal 50.0-75.0 [facility] Comment on above: Performed By: #### V IDH, ANEU, LIPID, [id number], FT3, FT4, GFR, ADIFF, [id number], CAION, TSH, CBC, CMP #### [place] [address] #### PROL, PTH #### [address] [address] .GFRon 04-20-2024 Estimated Glomerular Filtration Rate 70 ml/min/1.73sqm Normal [facility] Comment on above: Result Comment: Stages of [...] Performed By: #### V IDH, ANEU, LIPID, [id number], FT3, FT4, GFR, ADIFF, [id number], CAION, TSH, CBC, CMP #### [place] [address] #### PROL, PTH #### [place] [address] .NEUABSon 04-20-2024 Neutrophil, Absolute 4.2 10 3/mcL Normal 2.3-8.1 [facility] Comment on above: Performed By: #### V IDH, ANEU, LIPID, [id number], FT3, FT4, GFR, ADIFF, [id number], CAION, TSH, CBC, CMP #### [place] [id number] #### PROL, PTH #### [place] [address] CAIONon 04-20-2024 Calcium Ionized 1.25 mmol/L Normal 1.12-1.32 [facility] Comment on above: Performed By: #### V IDH, ANEU, LIPID, [id number], FT3, FT4, GFR, ADIFF, [id number], CAION, TSH, CBC, CMP #### [place] [address] #### PROL, PTH #### [place] [address] CAURon 04-20-2024 Calcium [Mass/Vol] 12.0 mg/dL Normal [facility] Comment on above: Performed By: #### C AUR #### [place] [address] #### CRUR #### [place] [address] CBCon 04-20-2024 Erythrocyte distribution width (RBC) [Ratio] 14.8 % Normal 11.5-15.5 [facility] Comment on above: Performed By: #### V IDH, ANEU, LIPID, [id number], FT3, FT4, GFR, ADIFF, [id number], CAION, TSH, CBC, CMP #### [address] [address] #### PROL, PTH #### [place] [address] Hematocrit (Bld) [Volume fraction] 50.6 % Normal 40.0-52.0 [facility] Comment on above: Performed By: #### V IDH, ANEU, LIPID, [id number], FT3, FT4, GFR, ADIFF, [id number], CAION, TSH, CBC, CMP #### [place] [address] #### PROL, PTH #### [place] [address] Hgb 17.3 G/dL Normal 13.0-17.5 [facility] Comment on above: Performed By: #### V IDH, ANEU, LIPID, [id number], FT3, FT4, GFR, ADIFF, [id number], CAION, TSH, CBC, CMP #### [place] [address] #### PROL, PTH #### [place] [address] MCH (RBC) [Entitic mass] 30.1 pg Normal 27.0-33.0 [facility] Comment on above: Performed By: #### V IDH, ANEU, LIPID, [id number], FT3, FT4, GFR, ADIFF, [id number], CAION, TSH, CBC, CMP #### [place] [address] #### PROL, PTH #### [address] [address] MCHC 34.2 G/dL Normal 32.0-36.0 [facility] Comment on above: Performed By: #### V IDH, ANEU, LIPID, [id number], FT3, FT4, GFR, ADIFF, [id number], CAION, TSH, CBC, CMP #### [address] [address] #### PROL, PTH #### [place] [address] MCV (RBC) [Entitic vol] 88.0 fL Normal 81.0-100.0 [facility] Comment on above: Performed By: #### V IDH, ANEU, LIPID, [id number], FT3, FT4, GFR, ADIFF, [id number], CAION, TSH, CBC, CMP #### [address] [address] #### PROL, PTH #### [place] [address] Platelet 289 10 3/mcL Normal 150-450 [facility] Comment on above: Performed By: #### V IDH, ANEU, LIPID, [id number], FT3, FT4, GFR, ADIFF, [id number], CAION, TSH, CBC, CMP #### [address] [address] #### PROL, PTH #### [place] [address] Platelet mean volume (Bld) [Entitic vol] 7.4 fL Normal 6.4-10.5 [facility] Comment on above: Performed By: #### V IDH, ANEU, LIPID, [id number], FT3, FT4, GFR, ADIFF, [id number], CAION, TSH, CBC, CMP #### [address] [address] #### PROL, PTH #### [place] [address] RBC 5.75 10 6/mcL Normal 4.50-6.00 [facility] Comment on above: Performed By: #### V IDH, ANEU, LIPID, [id number], FT3, FT4, GFR, ADIFF, [id number], CAION, TSH, CBC, CMP #### [address] [address] #### PROL, PTH #### [address] [address] WBC 7.4 10 3/mcL Normal 4.5-10.8 [facility] Comment on above: Performed By: #### V IDH, ANEU, LIPID, [id number], FT3, FT4, GFR, ADIFF, [id number], CAION, TSH, CBC, CMP #### [address] [address] #### PROL, PTH #### [place] [address] CMPon 04-20-2024 Albumin Level 4.2 G/dL Normal 3.4-4.8 [facility] Comment on above: Performed By: #### V IDH, ANEU, LIPID, [id number], FT3, FT4, GFR, ADIFF, [id number], CAION, TSH, CBC, CMP #### [address] [address] #### PROL, PTH #### [address] [address] Albumin/Globulin [Mass ratio] 1.1 {ratio} Normal 1.1-2.5 [facility] Comment on above: Performed By: #### V IDH, ANEU, LIPID, [id number], FT3, FT4, GFR, ADIFF, [id number], CAION, TSH, CBC, CMP #### [address] [address] #### PROL, PTH #### [address] [address] ALP [Catalytic activity/Vol] 75 U/L Normal 40-135 [facility] Comment on above: Performed By: #### V IDH, ANEU, LIPID, [id number], FT3, FT4, GFR, ADIFF, [id number], CAION, TSH, CBC, CMP #### [address] [address] #### PROL, PTH #### [address] [address] ALT [Catalytic activity/Vol] 27 U/L Normal 16-63 [facility] Comment on above: Performed By: #### V IDH, ANEU, LIPID, [id number], FT3, FT4, GFR, ADIFF, [id number], CAION, TSH, CBC, CMP #### [address] [address] #### PROL, PTH #### [place] [address] AST [Catalytic activity/Vol] 15 U/L Normal 10-40 [facility] Comment on above: Performed By: #### V IDH, ANEU, LIPID, [id number], FT3, FT4, GFR, ADIFF, [id number], CAION, TSH, CBC, CMP #### [place] [address] #### PROL, PTH #### [address] [address] Bili Total 0.7 mg/dL Normal 0.2-1.0 [facility] Comment on above: Result Comment: Use of this assay is not recommended for patients undergoing treatment with eltrombopag due to the potential for falsely elevated results. Performed By: #### V IDH, ANEU, LIPID, [id number], FT3, FT4, GFR, ADIFF, [id number], CAION, TSH, CBC, CMP #### [address] [address] #### PROL, PTH #### [place] [id number] BUN/Creatinine Ratio 15 ratio Normal 7-27 [facility] Comment on above: Performed By: #### V IDH, ANEU, LIPID, [id number], FT3, FT4, GFR, ADIFF, [id number], CAION, TSH, CBC, CMP #### [place] [address] #### PROL, PTH #### [address] [address] Calcium [Mass/Vol] 10.4 mg/dL High 8.4-10.2 [facility] Comment on above: Performed By: #### V IDH, ANEU, LIPID, [id number], FT3, FT4, GFR, ADIFF, [id number], CAION, TSH, CBC, CMP #### [place] [address] #### PROL, PTH #### [address] [address] Chloride [Moles/Vol] 101 mmol/L Normal 98-107 [facility] Comment on above: Performed By: #### V IDH, ANEU, LIPID, [id number], FT3, FT4, GFR, ADIFF, 628008, CAION, TSH, CBC, CMP #### [place] [address] #### PROL, PTH #### [address] [address] CO2 [Moles/Vol] 28 mmol/L Normal 23-31 [facility] Comment on above: Performed By: #### V IDH, ANEU, LIPID, [id number], FT3, FT4, GFR, ADIFF, [id number], CAION, TSH, CBC, CMP #### [place] [address] #### PROL, PTH #### [place] [address] Creatinine [Mass/Vol] 1.17 mg/dL Normal 0.70-1.30 [facility] Comment on above: Result Comment: Test ing performed on Siemens Dimension EXL analyzer using a modified kinetic Jody technique. Performed By: #### V IDH, ANEU, LIPID, [id number], FT3, FT4, GFR, ADIFF, [id number], CAION, TSH, CBC, CMP #### [place] [address] #### PROL, PTH #### [address] [address] Electrolyte Balance 7.0 mEq/L Normal 4.0-15.0 [facility] Comment on above: Performed By: #### V IDH, ANEU, LIPID, [id number], FT3, FT4, GFR, ADIFF, [id number], CAION, TSH, CBC, CMP #### [address] [address] #### PROL, PTH #### [place] [address] Globulin 3.7 G/dL Normal 1.5-3.8 [facility] Comment on above: Performed By: #### V IDH, ANEU, LIPID, [id number], FT3, FT4, GFR, ADIFF, 355949, CAION, TSH, CBC, CMP #### [address] [address] #### PROL, PTH #### [place] [address] Glucose [Mass/Vol] 108 mg/dL Normal 80-115 [facility] Comment on above: Performed By: #### V IDH, ANEU, LIPID, [id number], FT3, FT4, GFR, ADIFF, 882663, CAION, TSH, CBC, CMP #### [address] [address] #### PROL, PTH #### [place] [address] Potassium [Moles/Vol] 4.2 mmol/L Normal 3.5-5.1 [facility] Comment on above: Performed By: #### V IDH, ANEU, LIPID, [id number], FT3, FT4, GFR, ADIFF, [id number], CAION, TSH, CBC, CMP #### [address] [address] #### PROL, PTH #### [place] [address] Sodium [Moles/Vol] 136 mmol/L Normal 136-145 [facility] Comment on above: Performed By: #### V IDH, ANEU, LIPID, [id number], FT3, FT4, GFR, ADIFF, 288659, CAION, TSH, CBC, CMP #### [address] [address] #### PROL, PTH #### [address] [address] Total Protein 7.9 G/dL Normal 6.4-8.2 [facility] Comment on above: Performed By: #### V IDH, ANEU, LIPID, [id number], FT3, FT4, GFR, ADIFF, [id number], CAION, TSH, CBC, CMP #### [address] [address] #### PROL, PTH #### [place] [address] Urea nitrogen [Mass/Vol] 17 mg/dL Normal 7-18 [facility] Comment on above: Performed By: #### V IDH, ANEU, LIPID, [id number], FT3, FT4, GFR, ADIFF, 982125, CAION, TSH, CBC, CMP #### [address] [address] #### PROL, PTH #### [place] [address] CRURon 04-20-2024 U Creatinine 109.0 mg/dL Normal [facility] Comment on above: Performed By: #### C AUR #### [place] [address] #### CRUR #### [address] [address] FT3on 04-20-2024 Free T3 [Mass/Vol] 2.88 pg/mL Normal 2.30-4.00 [facility] Comment on above: Performed By: #### C AUR #### [place] [address] #### CRUR #### [place] [address] FT4on 04-20-2024 Free T4 [Mass/Vol] 0.91 ng/dL Normal 0.76-1.46 [facility] Comment on above: Performed By: #### V IDH, ANEU, LIPID, [id number], FT3, FT4, GFR, ADIFF, [id number], CAION, TSH, CBC, CMP #### [facility] [address] [place], [place] [address] #### PROL, PTH #### [address] [address] LABORATORYOrdered By: Carola Ceja on 04-20-2024 Calcium [...] - 1 8.0 ng/mL AH ADM SS Protein [Mass/Vol] 7.9 G/dL Normal [...] 04-20-2024 Cholesterol [Mass/Vol] 159 mg/dL Normal 0-200 [facility] Comment on above: Result Comment: Chol esterol Reference Interval: Less than 200 Desirable 200-239 Borderline high risk 240 and above High risk Performed By: #### C AUR #### [place] [address] #### CRUR #### [address] [address] Cholesterol in HDL [Mass/Vol] 36 mg/dL Low 40-60 [facility] Comment on above: Performed By: #### C AUR #### [place] [address] #### CRUR #### [address] [address] Cholesterol in LDL [Mass/Vol] 89 mg/dL Normal 0-130 [facility] Comment on above: Performed By: #### C AUR #### [place] [address] #### CRUR #### [address] [address] Triglyceride [Mass/Vol] 169 mg/dL High 0-150 [facility] Comment on above: Result Comment: Trig lyceride Reference Interval: Less than 150 Normal 150-199 Borderline high risk 200-499 High risk 500 or higher Very high risk Performed By: #### C AUR #### [place] [address] #### CRUR #### [place] [address] PROLon 04-20-2024 Prolactin 15.0 ng/mL Normal 2.0-18.0 [facility] Comment on above: Performed By: #### C AUR #### [place] [address] #### CRUR #### [place] [address] PTHon 04-20-2024 PTH, Intact 44.8 pg/mL Normal 18.5-88.0 [facility] Comment on above: Performed By: #### C AUR #### [place] [address] #### CRUR #### [place] [address] TSHon 04-20-2024 TSH Qn 0.38 m[IU]/L Normal 0.36-3.74 [facility] Comment on above: Performed By: #### V IDH, ANEU, LIPID, [id number], FT3, FT4, GFR, ADIFF, [id number], CAION, TSH, CBC, CMP #### [address] [address] #### PROL, PTH #### [place] [address] VIDHon 04-20-2024 Vit. D 25-Hydroxy 31.3 ng/mL Normal [facility] Comment on above: Result Comment: Inte rpretive Values Based on Total 25(OH) Vitamin D: Deficient <20 ng/mL Insufficient 20 - <30 ng/mL Sufficient 30-100 ng/mL Performed By: #### C AUR #### [facility] [address] [place] [address] #### CRTESHA #### [facility] [address] [place], [place] [address] Abd Aortic/IVC Duplex scanon 04-13-2024 Abd Aortic/IVC Duplex scan [facility] [address] [place] [address] Abd Aortic/IVC Duplex scan 04/13/24 0946 MR#: [id number] Acct: [id number] Name: CORRIE QUEEN Rep #: [id number] : 1960 63 From: Ryan Ceja MD [...] Aorta IVC Iliac vasculature or bypass grafts [address]1973. The exam was diagnostic. Exam performed in department. Compare to study on 07/12/2023. VL/Abd Aortic/IVC Duplex scan Interpretation Summary Inferior vena cava and right iliac vein patent with normal venous flow pattern. Left iliac vein stent occluded. Ordering Physician: Dolly Clarke Referring Physician: Sorin Bailey M.D. Performed By: Yanick Dixon, T 04/13/24 1252 Date Ryan Ceja MD CC: EDMUND Jovel; Dr. Justice Bailey DO Date Dictated: 04/13/2446 Date Transcribed: 04/13/24 1252 Radiological Equipment Specialist: Signed Normal [facility] Venous Duplex US, Unilateral on 04-13-2024 Venous Duplex US, Unilateral [facility] [address] [place] [address] Venous Duplex US, Unilateral 04/13/24 1006 MR#: [id number] Acct: [id number] Name: CORRIE QUEEN Rep #: [id number] : 1960 63 From: Ryan Ceja MD [...] Ceja MD CC: EDMUND Jovel; Dr. Justice Bailey, Date Dictated: 04/13/24 1006 Date Transcribed: 04/13/24 1250 Radiological Equipment Specialist: Signed Normal [facility] Internal Medicine Office Vis gissell 03-31-2024 Internal Medicine Office Visit [facility] [address] [place] [address] [place] [address] OFFICE VISIT Date of Service: 03/31/24 MR#: [id number] Acct: [id number] Name: CORRIE QUEEN Rep #: [id number] : 1960 Provider: Dr. 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 Normal [facility] MR/BMS.BVSon 03-18-2024 MR/BMS.BVS [facility] [address] [place] [address] OFFICE VISIT Date of Service: 03/18/24 MR#: [id number] Acct: [id number] Name: CORRIE QUEEN Rep #: [id number] : 1960 Provider: EDMUND Jovel Age/Sex: 63/M Location: [facility] Status: Signed Intake Vital Signs 02/25/24 10:24 [...] underwent attempted percutaneous thrombectomy and stenting at [facility] which was not successful. He then [...] having stasis (more content not included)... Normal [facility] Urgent Care Visit Reporton 1 Urgent Care Visit Report [facility] [address], [address] [place] [address] OFFICE VISIT Date of Service: 02/25/24 MR#: [id number] Acct: [id number] Name: CORRIE QUEEN Rep #: [id number] : 1960 Provider: EDMUND Miguel Age/Sex: 63/M Location: [facility] Status: Signed Intake Vital Signs 12/23/23 09:55 [...] of having one on the right side. [facility] Medical History (Updated 02/25/24 @ 11:13 by [...] fever, chills, sweats, lightheadedness/dizzi ness, nausea/vomiting. No vdrf-wkt-gknhiwi products taken to assist. No other associated symptoms and no other alleviating or aggravating factors. ROS Const Constitutional: No other (As above) Exam Const General: cooperative, healthy appearing and no acute distress Orientation: alert and awake [facility] Head: normal to inspection Ears: hearing grossly [...] Procedure pe (more content not included)... Normal [facility] TFTESTon 01-09-2024 Free Testost Direct 1.5 pg/mL Low 6.6-18.1 [facility] Comment on above: Result Comment: Perf ormed At: [facility] [address] [id number] Willi Adams MD Ph:[phone] Performed At: [facility] [address] [id number] Pau Carranza PhD Ph:[phone] Performed By: #### V IDH, ANEU, LIPID, [id number], FT3, FT4, GFR, ADIFF, [id number], CAION, TSH, CBC, CMP #### [place] [address] #### PROL, PTH #### [address] [address] Testosterone Lvl 111 ng/dL Low 264-916 [facility] Comment on above: Result Comment: Adul t male reference interval is based on a population of healthy nonobese males (BMI <30) between 19 and 39 years old. Jake et.al. JCEM 2017,102;9270-3880. PMID: [id number]. Performed By: #### V IDH, ANEU, LIPID, [id number], FT3, FT4, GFR, ADIFF, [id number], CAION, TSH, CBC, CMP #### [place] [address] #### PROL, PTH #### [address] [address] .Auto Diffon 01-03-2024 Basophil, Absolute 0.1 10 3/mcL Normal 0.0-0.2 [facility] Comment on above: Performed By: #### V IDH, ANEU, LIPID, [id number], FT3, FT4, GFR, ADIFF, 922532, CAION, TSH, CBC, CMP #### [address] [address] #### PROL, PTH #### [address] [address] Basophils/100 WBC (Bld) 1.0 % Normal 0.0-2.5 [facility] Comment on above: Performed By: #### V IDH, ANEU, LIPID, [id number], FT3, FT4, GFR, ADIFF, 334844, CAION, TSH, CBC, CMP #### [address] [address] #### PROL, PTH #### [address] [address] Eosinophil, Absolute 0.2 10 3/mcL Normal 0.0-0.7 [facility] Comment on above: Performed By: #### V IDH, ANEU, LIPID, [id number], FT3, FT4, GFR, ADIFF, 046909, CAION, TSH, CBC, CMP #### [address] [address] #### PROL, PTH #### [address] [address] Eosinophils/100 WBC (Bld) 2.6 % Normal 0.0-7.0 [facility] Comment on above: Performed By: #### V IDH, ANEU, LIPID, [id number], FT3, FT4, GFR, ADIFF, 687208, CAION, TSH, CBC, CMP #### [address] [address] #### PROL, PTH #### [address] [address] Lymphocyte, Absolute 1.6 10 3/mcL Normal 0.9-4.3 [facility] Comment on above: Performed By: #### V IDH, ANEU, LIPID, [id number], FT3, FT4, GFR, ADIFF, 633646, CAION, TSH, CBC, CMP #### [address] [address] #### PROL, PTH #### [address] [address] Lymphocytes/100 WBC (Bld) 21.6 % Normal 20.0-40.0 [facility] Comment on above: Performed By: #### V IDH, ANEU, LIPID, [id number], FT3, FT4, GFR, ADIFF, 105141, CAION, TSH, CBC, CMP #### [address] [address] #### PROL, PTH #### [address] [address] Monocyte, Absolute 0.5 10 3/mcL Normal 0.1-1.4 [facility] Comment on above: Performed By: #### V IDH, ANEU, LIPID, [id number], FT3, FT4, GFR, ADIFF, 876817, CAION, TSH, CBC, CMP #### [address] [address] #### PROL, PTH #### [address] [address] Monocytes/100 WBC (Bld) 7.3 % Normal 2.0-13.0 [facility] Comment on above: Performed By: #### V IDH, ANEU, LIPID, [id number], FT3, FT4, GFR, ADIFF, 283971, CAION, TSH, CBC, CMP #### [address] [address] #### PROL, PTH #### [address] [address] Neutrophils/100 WBC (Bld) 67.5 % Normal 50.0-75.0 [facility] Comment on above: Performed By: #### V IDH, ANEU, LIPID, [id number], FT3, FT4, GFR, ADIFF, 397248, CAION, TSH, CBC, CMP #### [address] [address] #### PROL, PTH #### [address] [address] .GFRon 01-03-2024 GFR 83 ml/min/1.73sqm Normal [facility] Comment on above: Result Comment: GFR Population [...] Performed By: #### V IDH, ANEU, LIPID, [id number], FT3, FT4, GFR, ADIFF, 094809, CAION, TSH, CBC, CMP #### [address] [address] #### PROL, PTH #### [address] [address] GFR Non- 69 ml/min/1.73sqm Normal [facility] Comment on above: Result Comment: GFR Population [...] Performed By: #### V IDH, ANEU, LIPID, [id number], FT3, FT4, GFR, ADIFF, 876754, CAION, TSH, CBC, CMP #### [address] [address] #### PROL, PTH #### [address] [address] .NEUABSon 01-03-2024 Neutrophil, Absolute 4.9 10 3/mcL Normal 2.3-8.1 [facility] Comment on above: Performed By: #### V IDH, ANEU, LIPID, [id number], FT3, FT4, GFR, ADIFF, 146569, CAION, TSH, CBC, CMP #### [place] [address] #### PROL, PTH #### [address] [address] A1Con 01-03-2024 Glucose [Mass/Vol] 111 mg/dL Normal [facility] Comment on above: Result Comment: Ruthann mated Average Glucose calculated by equation ((28.7xA1C)-46.7) Estimated average glucose (eAG) is a calculated value from Hemoglobin A1C and is ambulatory service representative of the average blood glucose level in the last 2-3 month period. Normal range: less than 114 mg/dL Performed By: #### V IDH, ANEU, LIPID, [id number], FT3, FT4, GFR, ADIFF, 912459, CAION, TSH, CBC, CMP #### [place] [address] #### PROL, PTH #### [place] [address] HbA1c (Bld) [Mass fraction] 5.5 % Normal 4.3-6.4 [facility] Comment on above: Performed By: #### V IDH, ANEU, LIPID, [id number], FT3, FT4, GFR, ADIFF, 302125, CAION, TSH, CBC, CMP #### [place] [address] #### PROL, PTH #### [place] [address] CAIONon 01-03-2024 Calcium Ionized 1.29 mmol/L Normal 1.12-1.32 [facility] Comment on above: Performed By: #### C AUR #### [place] [address] #### CRUR #### [address] [address] CAURon 01-03-2024 Calcium [Mass/Vol] 14.0 mg/dL Normal [facility] Comment on above: Performed By: #### C AUR #### [place] [address] #### CRUR #### [address] [address] CBCon 01-03-2024 Erythrocyte distribution width (RBC) [Ratio] 15.2 % Normal 11.5-15.5 [facility] Comment on above: Performed By: #### V IDH, ANEU, LIPID, [id number], FT3, FT4, GFR, ADIFF, 027896, CAION, TSH, CBC, CMP #### [address] [address] #### PROL, PTH #### [place] [address] Hematocrit (Bld) [Volume fraction] 49.8 % Normal 40.0-52.0 [facility] Comment on above: Performed By: #### V IDH, ANEU, LIPID, [id number], FT3, FT4, GFR, ADIFF, 967990, CAION, TSH, CBC, CMP #### [address] [address] #### PROL, PTH #### [place] [address] Hgb 16.6 G/dL Normal 13.0-17.5 [facility] Comment on above: Performed By: #### V IDH, ANEU, LIPID, [id number], FT3, FT4, GFR, ADIFF, 274732, CAION, TSH, CBC, CMP #### [address] [address] #### PROL, PTH #### [place] [address] MCH (RBC) [Entitic mass] 29.8 pg Normal 27.0-33.0 [facility] Comment on above: Performed By: #### V IDH, ANEU, LIPID, [id number], FT3, FT4, GFR, ADIFF, 738292, CAION, TSH, CBC, CMP #### [place] [address] #### PROL, PTH #### [place] [address] MCHC 33.3 G/dL Normal 32.0-36.0 [facility] Comment on above: Performed By: #### V IDH, ANEU, LIPID, [id number], FT3, FT4, GFR, ADIFF, 512985, CAION, TSH, CBC, CMP #### [place] [address] #### PROL, PTH #### [place] [address] MCV (RBC) [Entitic vol] 89.3 fL Normal 81.0-100.0 [facility] Comment on above: Performed By: #### V IDH, ANEU, LIPID, [id number], FT3, FT4, GFR, ADIFF, 883096, CAION, TSH, CBC, CMP #### [place] [address] #### PROL, PTH #### [place] [address] Platelet 284 10 3/mcL Normal 150-450 [facility] Comment on above: Performed By: #### V IDH, ANEU, LIPID, [id number], FT3, FT4, GFR, ADIFF, 007678, CAION, TSH, CBC, CMP #### [place] [address] #### PROL, PTH #### [place] [address] Platelet mean volume (Bld) [Entitic vol] 7.3 fL Normal 6.4-10.5 [facility] Comment on above: Performed By: #### V IDH, ANEU, LIPID, [id number], FT3, FT4, GFR, ADIFF, 476539, CAION, TSH, CBC, CMP #### [place] [address] #### PROL, PTH #### [place] [address] RBC 5.58 10 6/mcL Normal 4.50-6.00 [facility] Comment on above: Performed By: #### V IDH, ANEU, LIPID, [id number], FT3, FT4, GFR, ADIFF, 368147, CAION, TSH, CBC, CMP #### [address] [address] #### PROL, PTH #### [place] [address] WBC 7.3 10 3/mcL Normal 4.5-10.8 [facility] Comment on above: Performed By: #### V IDH, ANEU, LIPID, [id number], FT3, FT4, GFR, ADIFF, 243394, CAION, TSH, CBC, CMP #### [place] [address] #### PROL, PTH #### [place] [address] CMPon 01-03-2024 Albumin Level 4.2 G/dL Normal 3.4-4.8 [facility] Comment on above: Performed By: #### V IDH, ANEU, LIPID, [id number], FT3, FT4, GFR, ADIFF, 794795, CAION, TSH, CBC, CMP #### [address] [address] #### PROL, PTH #### [place] [address] Albumin/Globulin [Mass ratio] 1.2 {ratio} Normal 1.1-2.5 [facility] Comment on above: Performed By: #### V IDH, ANEU, LIPID, [id number], FT3, FT4, GFR, ADIFF, 574369, CAION, TSH, CBC, CMP #### [address] [address] #### PROL, PTH #### [place] [address] ALP [Catalytic activity/Vol] 103 U/L Normal 40-135 [facility] Comment on above: Performed By: #### V IDH, ANEU, LIPID, [id number], FT3, FT4, GFR, ADIFF, 014231, CAION, TSH, CBC, CMP #### [address] [address] #### PROL, PTH #### [address] [address] ALT [Catalytic activity/Vol] 39 U/L Normal 16-63 [facility] Comment on above: Performed By: #### V IDH, ANEU, LIPID, [id number], FT3, FT4, GFR, ADIFF, 347369, CAION, TSH, CBC, CMP #### [address] [address] #### PROL, PTH #### [place] [address] AST [Catalytic activity/Vol] 23 U/L Normal 10-40 [facility] Comment on above: Performed By: #### V IDH, ANEU, LIPID, [id number], FT3, FT4, GFR, ADIFF, 287284, CAION, TSH, CBC, CMP #### [address] [address] #### PROL, PTH #### [place] [address] Bili Total 0.6 mg/dL Normal 0.2-1.0 [facility] Comment on above: Result Comment: Use of this assay is not recommended for patients undergoing treatment with eltrombopag due to the potential for falsely elevated results. Performed By: #### V IDH, ANEU, LIPID, [id number], FT3, FT4, GFR, ADIFF, 332761, CAION, TSH, CBC, CMP #### [address] [address] #### PROL, PTH #### [place] [address] BUN/Creatinine Ratio 12 ratio Normal 7-27 [facility] Comment on above: Performed By: #### V IDH, ANEU, LIPID, [id number], FT3, FT4, GFR, ADIFF, 695170, CAION, TSH, CBC, CMP #### [address] [address] #### PROL, PTH #### [address] [address] Calcium [Mass/Vol] 10.4 mg/dL High 8.4-10.2 [facility] Comment on above: Performed By: #### V IDH, ANEU, LIPID, [id number], FT3, FT4, GFR, ADIFF, 406042, CAION, TSH, CBC, CMP #### [address] [address] #### PROL, PTH #### [address] [address] Chloride [Moles/Vol] 105 mmol/L Normal 98-107 [facility] Comment on above: Performed By: #### V IDH, ANEU, LIPID, [id number], FT3, FT4, GFR, ADIFF, 942716, CAION, TSH, CBC, CMP #### [place] [address] #### PROL, PTH #### [address] [address] CO2 [Moles/Vol] 29 mmol/L Normal 23-31 [facility] Comment on above: Performed By: #### V IDH, ANEU, LIPID, [id number], FT3, FT4, GFR, ADIFF, 859407, CAION, TSH, CBC, CMP #### [address] [address] #### PROL, PTH #### [address] [address] Creatinine [Mass/Vol] 1.09 mg/dL Normal 0.70-1.30 [facility] Comment on above: Result Comment: Test ing performed on [employer] Dimension EXL analyzer using a modified kinetic Jody technique. Performed By: #### V IDH, ANEU, LIPID, [id number], FT3, FT4, GFR, ADIFF, 416785, CAION, TSH, CBC, CMP #### [place] [address] #### PROL, PTH #### [address] [address] Electrolyte Balance 7.0 mEq/L Normal 4.0-15.0 [facility] Comment on above: Performed By: #### V IDH, ANEU, LIPID, [id number], FT3, FT4, GFR, ADIFF, 008312, CAION, TSH, CBC, CMP #### [address] [address] #### PROL, PTH #### [address] [address] Globulin 3.5 G/dL Normal [facility] Comment on above: Performed By: #### V IDH, ANEU, LIPID, 515452, FT3, FT4, GFR, ADIFF, 148625, CAION, TSH, CBC, CMP #### [address] [address] #### PROL, PTH #### [place] [address] Glucose [Mass/Vol] 115 mg/dL Normal 80-115 [facility] Comment on above: Performed By: #### V IDH, ANEU, LIPID, [id number], FT3, FT4, GFR, ADIFF, 637817, CAION, TSH, CBC, CMP #### [address] [address] #### PROL, PTH #### [place] [address] Potassium [Moles/Vol] 4.7 mmol/L Normal 3.5-5.1 [facility] Comment on above: Performed By: #### V IDH, ANEU, LIPID, [id number], FT3, FT4, GFR, ADIFF, [id number], CAION, TSH, CBC, CMP #### [address] [address] #### PROL, PTH #### [place] [address] Sodium [Moles/Vol] 141 mmol/L Normal 136-145 [facility] Comment on above: Performed By: #### V IDH, ANEU, LIPID, [id number], FT3, FT4, GFR, ADIFF, [id number], CAION, TSH, CBC, CMP #### [address] [address] #### PROL, PTH #### [address] [address] Total Protein 7.7 G/dL Normal 6.4-8.2 [facility] Comment on above: Performed By: #### V IDH, ANEU, LIPID, [id number], FT3, FT4, GFR, ADIFF, [id number], CAION, TSH, CBC, CMP #### [address] [address] #### PROL, PTH #### [address] [address] Urea nitrogen [Mass/Vol] 13 mg/dL Normal 09-11 [facility] Comment on above: Performed By: #### V IDH, ANEU, LIPID, [id number], FT3, FT4, GFR, ADIFF, [id number], CAION, TSH, CBC, CMP #### [address] [address] #### PROL, PTH #### [address] [address] CRURon 01-03-2024 U Creatinine 152.1 mg/dL Normal 39.0-259.0 [facility] Comment on above: Performed By: #### C AUR #### [place] [address] #### CRUR #### [address] [address] E2on 01-03-2024 Estradiol Level 24.43 pg/mL Normal 0.00-39.80 [facility] Comment on above: Result Comment: No te - New Reference Range in effect 20 Adult Female E2 Reference Ranges: Follicular phase 19.5 - 144.2 pg/mL Midcycle 63.9 - 356.7 pg/mL Luteal phase 55.8 - 214.2 pg/mL Post menopausal 0 - 33.2 pg/mL Performed By: #### V IDH, ANEU, LIPID, [id number], FT3, FT4, GFR, ADIFF, [id number], CAION, TSH, CBC, CMP #### [address] [address] #### PROL, PTH #### [place] [address] FT3on 01-03-2024 Free T3 [Mass/Vol] 2.59 pg/mL Normal 2.30-4.00 [facility] Comment on above: Performed By: #### V IDH, ANEU, LIPID, [id number], FT3, FT4, GFR, ADIFF, [id number], CAION, TSH, CBC, CMP #### [place] [address] #### PROL, PTH #### [place] [address] FT4on 01-03-2024 Free T4 [Mass/Vol] 0.91 ng/dL Normal 0.76-1.46 [facility] Comment on above: Performed By: #### V IDH, ANEU, LIPID, [id number], FT3, FT4, GFR, ADIFF, [id number], CAION, TSH, CBC, CMP #### [place] [address] #### PROL, PTH #### [place] [address] LABORATORYOrdered By: Johan Duff on 01-03-2024 Calcium [...] calculated value from Hemoglobin A1C and is ambulatory service representative of the average blood glucose level [...] ormal Reference Ranges for Females: Female Premenopause Avv77-957.01-47.94 ng/dL Female Postmenopause Erw85-16<7.00-45.62 ng/dL Thyroglobulin Ab IA Qn 22 unit/mL [...] 01-03-2024 Cholesterol [Mass/Vol] 234 mg/dL High 0-200 [facility] Comment on above: Result Comment: Chol esterol Reference Interval: Less than 200 Desirable 200-239 Borderline high risk 240 and above High risk Performed By: #### V IDH, ANEU, LIPID, [id number], FT3, FT4, GFR, ADIFF, [id number], CAION, TSH, CBC, CMP #### [address] [address] #### PROL, PTH #### [address] [address] Cholesterol in HDL [Mass/Vol] 37 mg/dL Low 40-60 [facility] Comment on above: Performed By: #### V IDH, ANEU, LIPID, [id number], FT3, FT4, GFR, ADIFF, [id number], CAION, TSH, CBC, CMP #### [address] [address] #### PROL, PTH #### [address] [address] Cholesterol in LDL [Mass/Vol] 163 mg/dL High 0-130 [facility] Comment on above: Performed By: #### V IDH, ANEU, LIPID, [id number], FT3, FT4, GFR, ADIFF, [id number], CAION, TSH, CBC, CMP #### [address] [address] #### PROL, PTH #### [place] [address] Triglyceride [Mass/Vol] 169 mg/dL High 0-150 [facility] Comment on above: Result Comment: Trig lyceride Reference Interval: Less than 150 Normal 150-199 Borderline high risk 200-499 High risk 500 or higher Very high risk Performed By: #### V IDH, ANEU, LIPID, [id number], FT3, FT4, GFR, ADIFF, [id number], CAION, TSH, CBC, CMP #### [place] [address] #### PROL, PTH #### [place] [address] MGon 01-03-2024 Magnesium [Mass/Vol] 2.1 mg/dL Normal 1.8-2.4 [facility] Comment on above: Performed By: #### V IDH, ANEU, LIPID, [id number], FT3, FT4, GFR, ADIFF, [id number], CAION, TSH, CBC, CMP #### [place] [address] #### PROL, PTH #### [place] [address] PHOSon 01-03-2024 Phosphate [Mass/Vol] 3.1 mg/dL Normal 2.3-4.1 [facility] Comment on above: Performed By: #### V IDH, ANEU, LIPID, [id number], FT3, FT4, GFR, ADIFF, [id number], CAION, TSH, CBC, CMP #### [place] [address] #### PROL, PTH #### [place] [address] PROLon 01-03-2024 Prolactin 13.6 ng/mL Normal 2.0-18.0 [facility] Comment on above: Performed By: #### V IDH, ANEU, LIPID, [id number], FT3, FT4, GFR, ADIFF, [id number], CAION, TSH, CBC, CMP #### [address] [address] #### PROL, PTH #### [address] [address] PSAon 01-03-2024 Prostate Specific Antigen 0.62 ng/mL Normal 0.00-4.00 [facility] Comment on above: Performed By: #### V IDH, ANEU, LIPID, [id number], FT3, FT4, GFR, ADIFF, [id number], CAION, TSH, CBC, CMP #### [address] [address] #### PROL, PTH #### [address] [address] PTHon 01-03-2024 PTH, Intact 50.7 pg/mL Normal 18.5-88.0 [facility] Comment on above: Performed By: #### V IDH, ANEU, LIPID, [id number], FT3, FT4, GFR, ADIFF, [id number], CAION, TSH, CBC, CMP #### [address] [address] #### PROL, PTH #### [address] [address] TESTOon 01-03-2024 Testosterone Lvl 106.55 ng/dL Normal 86.98-780.[address] [facility] Comment on above: Result Comment: Norm al Reference Ranges for Females: Female Premenopause Age 21-60 9.01-47.94 ng/dL Female Postmenopause Age 45-89 <7.00-45.62 ng/dL Performed By: #### V IDH, ANEU, LIPID, [id number], FT3, FT4, GFR, ADIFF, [id number], CAION, TSH, CBC, CMP #### [address] [address] #### PROL, PTH #### [address] [address] THYABon 01-03-2024 anti-Thyroid Peroxidase 545 units/ml High 0-60 [facility] Comment on above: Result Comment: No te - New Reference Range in effect 19 Performed By: #### V IDH, ANEU, LIPID, [id number], FT3, FT4, GFR, ADIFF, [id number], CAION, TSH, CBC, CMP #### [place] [address] #### PROL, PTH #### [place] [address] Thyroglobulin Ab 22 units/ml Normal 15-60 [facility] Comment on above: Result Comment: No te - New Reference Range in effect 19 Performed By: #### V IDH, ANEU, LIPID, [id number], FT3, FT4, GFR, ADIFF, [id number], CAION, TSH, CBC, CMP #### [place] [address] #### PROL, PTH #### [place] [address] TSHon 01-03-2024 TSH Qn 0.63 m[IU]/L Normal 0.36-3.74 [facility] Comment on above: Performed By: #### V IDH, ANEU, LIPID, [id number], FT3, FT4, GFR, ADIFF, [id number], CAION, TSH, CBC, CMP #### [place] [address] #### PROL, PTH #### [place] [address] VIDHon 01-03-2024 Vit. D 25-Hydroxy 32.8 ng/mL Normal [facility] Comment on above: Result Comment: Inte rpretive Values Based on Total 25(OH) Vitamin D: Deficient <20 ng/mL Insufficient 20 - <30 ng/mL Sufficient 30-100 ng/mL Performed By: #### V IDH, ANEU, LIPID, [id number], FT3, FT4, GFR, ADIFF, [id number], CAION, TSH, CBC, CMP #### [facility] [address] [place], [place] [address] #### PROL, PTH #### [address] [address] Internal Medicine Office Vis gissell 12-23-2023 Internal Medicine Office Visit [facility] [address] [place] [address] [place] [address] OFFICE VISIT Date of Service: 12/23/23 MR#: [id number] Acct: [id number] Name: CORRIE QUEEN Rep #: [id number] : 1960 Provider: RUBI romano Age/Sex: 63/M Location: [facility] Status: Signed Intake Vital Signs 10/15/23 09:21 [...] LEFT EYE IRRITATION Chief Complaint: back pain 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 Denies light sensitivity or visual disturbances. [facility] Medical History Kidney pain Pituitary abnormality Liver [...] at rest, ch (more content not included)... [facility] 11-25-2023 36 Thanks so much hemant! Normal [facility] 36 We received a fax stating that the patients testosterone needs a PA , could you please assist? [facility] 36on 08-01-2023 36 Message released to patient as written. Patient's further questions if applicable: Patient voiced understanding. Stated he will pick his medication up tomorrow. Please have clinical team call patient to schedule to have testosterone levels checked. Were all questions from office addressed or relayed to the patient from encounter: Yes [place] [address] Tried calling elvia molina and left a voice message for call back. Results of recent labs show normal prolactin, thyroid functions-patient is to continue current dose of cabergoline and levothyroxine. Testosterone remains low-I have sent prescription for testosterone gel to his pharmacy. Patient is to have testosterone levels checked 2 months after starting testosterone treatment [facility] Office Visiton 07-31-2023 Follow-up visit [id number] [place] 1960 M Date Provider Department Center 07/31/2023 [id number] APPUSW*[facility] None Family History Adopted: Yes Problem Relation Age of Onset No Known Problems Father Cancer Mother Comments: lung Family Status - Relation Status Age at Father Mother Level of Service:00528 SC OFFICE/OUTPATIENT ESTABLISHED MOD MDM 30 MIN Reason for Visit and Comments: Follow-up [658247] - Macroprolactinoma Hypothyroidism [143] Normal [facility] Progress Noteon 07-31-2023 Progress Note [facility]OCR[facility] [address] [facility] [address] [facility] [address] Dept: [phone] Dept Loc: [phone] Visit type: Established Reason for Visit: Follow-up [...] Subjective HPI PCP is Silvestre Sexton Previous Professor Of Genetics: Dr Sal & Dr Benito Initial [facility] endocrinology office visit: 2013 Last office visit: 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 Monge , but has missed his [...] negative. Al (more content not included)... Normal [facility] 36on 06-19-2023 36 We have been unable to reach your patient to schedule their testing. Test Name: Complete PFT pre and post bronchodilator 1st Attempt: 06/15/2023 mychart message 2nd Attempt: 06/19/2023 LVM. Normal [facility] Basophil percentageOrdered B y: Bull Lopez on 06-10-2023 Chloride [Moles/Vol] 107 mmol/L 98-107 [facility] Glucose [Mass/Vol] 92 mg/dL 74-106 [facility] Potassium [Moles/Vol] 4.1 mmol/L 3.5-5.1 [facility] Sodium [Moles/Vol] 136 mmol/L 136-145 [facility] Laboratory - Chemistry and C hemistry - challengeOrdered By: Bull Lopez on 06-10-2023 CO2 [Moles/Vol] 24.0 mmol/L 21.0-32.0 [facility] Urea nitrogen/Creatinine [Mass ratio] 16.8 mg/mg 10-20 [facility] No Panel InformationOrdered By: Bull Lopez on 06-10-2023 Estimated GFR (MDRD) Amer 80 mL/min >60 [facility] Comment on above: GFR Calc Estimated GFR (MDRD) Non-Af Amer 66 mL/min >60 [facility] Comment on above: Non- GFR Calc Serum or plasma calcium jamila urement (mass/volume)Ordered By: Bull Lopez on 06-10-2023 Calcium [Mass/Vol] 10.3 mg/dL 8.5-10.1 [facility] Serum or plasma creatinine m easurement (mass/volume)Ordered By: Bull Lopez on 06-10-2023 Creatinine [Mass/Vol] 1.19 mg/dL 0.70-1.30 [facility] Comment on above: The validity of the calculated GFR & GFRAA in patients over 70 years has not been determined. Clinical correlation is essential. Serum or plasma urea nitroge n measurement (mass/volume)Ordered By: Bull Lopez on 06-10-2023 Urea nitrogen [Mass/Vol] 20 mg/dL 7-18 [facility] Thin prep Papanicolaou smear with manual screeningOrdered By: Bull Lopez on 06-10-2023 Thin prep Papanicolaou smear with manual screening 5 -15 [facility] Absolute lymphocyte countOrd ered By: Sanjana Gillvaibhav on 06-06-2023 Lymphocytes Auto (Unsp spec) [#/Vol] 0.81 10*3/uL 0.83-4.51 [facility] Automated lymphocyte count a s percentage of total leukocytesOrdered By: Sanjana Gillvaibhav on 06-06-2023 Lymphocytes/100 WBC Auto (Unsp spec) 14.3 % 19-41 [facility] Basophil percentageOrdered B y: Sanjana Hale on 06-06-2023 Basophil percentage 0 SEEN /hpf 0-5 [facility] Basophils/100 WBC (Bld) 0.9 % 0-1 [facility] Bilirubin [Mass/Vol] 0.40 mg/dL 0.20-1.00 [facility] Comment on above: For patients on eltr ombopag therapy, use of Dimension Celeste TBIL is not recommended. Chloride [Moles/Vol] 109 mmol/L 98-107 [facility] Eosinophils/100 WBC (Bld) 1.8 % 0-5 [facility] Glucose [Mass/Vol] 95 mg/dL 74-106 [facility] Hemoglobin (Bld) [Mass/Vol] 14.9 g/dL 13.0-16.5 [facility] Monocytes/100 WBC (Bld) 10.6 % 0-10 [facility] Neutrophils (Bld) [#/Vol] 4.1 10*3/uL 2.0-7.7 [facility] Neutrophils/100 WBC (Bld) 71.7 % 47-70 [facility] Potassium [Moles/Vol] 4.3 mmol/L 3.5-5.1 [facility] Protein [Mass/Vol] 8.2 g/dL 6.4-8.2 [facility] Sodium [Moles/Vol] 136 mmol/L 136-145 [facility] WBC (Bld) [#/Vol] 5.7 10*3/uL 4.4-11.0 [facility] Bilirubin Test strip Ql (U)O rdered By: Sanjana Hale on 06-06-2023 Bilirubin Ql (U) Negative Negative [facility] Culture, urineOrdered By: Evelyn Hale on 06-06-2023 Bacteria identified Cx Nom (U) Culture exhibits no growth. [facility] Determination of erythrocyte mean corpuscular volume (MCV)Ordered By: Sanjana Hale on 06-06-2023 MCV (RBC) [Entitic vol] 88.5 fL 80-94 [facility] Erythrocyte distribution wid th ratioOrdered By: Sanjana Hale on 06-06-2023 Erythrocyte distribution width (RBC) [Ratio] 13.5 % 11.6-14.6 [facility] Erythrocyte distribution wid th standard deviationOrdered By: Sanjana Hale on 06-06-2023 Erythrocyte distribution width (RBC) [Entitic vol] 43.7 fL 35.1-43.9 [facility] Hematocrit Auto (Bld) [Volum e fraction]Ordered By: Sanjana Hale on 06-06-2023 Hematocrit (Bld) [Volume fraction] 45.6 % 40-54 [facility] Immature granulocytes/100 WB C Auto (Bld)Ordered By: Sanjana Hale on 06-06-2023 Immature granulocytes/100 WBC (Bld) 0.700 % 0.0-0.9 [facility] Comment on above: IG% - Immature Granu locytes (promyelocytes, myelocytes and metamyelocytes) > 1% indicates that a LEFT SHIFT is Present. Ketones Test strip Ql (U)Ord ered By: Sanjana Hale on 06-06-2023 Ketones Ql (U) Negative Negative [facility] Laboratory - Chemistry and C hemistry - challengeOrdered By: Sanjana Hale on 06-06-2023 Albumin/Globulin [Mass ratio] 1.1 {ratio} 0.9-2.4 [facility] ALP [Catalytic activity/Vol] 53 U/L 45-117 [facility] ALT [Catalytic activity/Vol] 19 U/L 16-61 [facility] CO2 [Moles/Vol] 25.0 mmol/L 21.0-32.0 [facility] Globulin (S) [Mass/Vol] 3.9 g/dL 2.2-4.2 [facility] Urea nitrogen/Creatinine [Mass ratio] 13.3 mg/mg 10-20 [facility] Laboratory - Hematology and Cell countsOrdered By: Sanjana Hale on 06-06-2023 MCH (RBC) [Entitic mass] 28.9 pg 27.0-32.0 [facility] MCHC (RBC) [Mass/Vol] 32.7 g/dL 32-36 [facility] Nucleated RBC/100 WBC (Bld) [Ratio] 0 % 0-5 [facility] Platelet mean volume (Bld) [Entitic vol] 9.5 fL 6.2-12.0 [facility] Platelets (Bld) [#/Vol] 237 10*3/uL 150-450 [facility] Mucus LM Ql (Urine sed)Order ed By: Sanjana Hale on 06-06-2023 Mucus Ql (Urine sed) 0 SEEN /hpf [facility] Nitrite Test strip Ql (U)Ord ered By: Sanjana Hale on 06-06-2023 Nitrite Ql (U) Negative Negative [facility] No Panel InformationOrdered By: Sanjana Hale on 06-06-2023 Estimated GFR (MDRD) Amer 73 mL/min >60 [facility] Comment on above: GFR Calc Estimated GFR (MDRD) Non-Af Amer 61 mL/min >60 [facility] Comment on above: Non- GFR Calc Urine RBC 0 SEEN /hpf 0-5 [facility] Protein Test strip Ql (U)Ord ered By: Sanjana Hale on 06-06-2023 Protein Ql (U) Negative Negative [facility] RBC Auto (Bld) [#/Vol]Ordere d By: Sanjana Hale on 06-06-2023 RBC (Bld) [#/Vol] 5.15 10*6/uL 4.6-6.2 [facility] Serum or plasma calcium jamila urement (mass/volume)Ordered By: Sanjana Hale on 06-06-2023 Calcium [Mass/Vol] 10.9 mg/dL 8.5-10.1 [facility] Serum or plasma creatinine m easurement (mass/volume)Ordered By: Sanjana Hale on 06-06-2023 Creatinine [Mass/Vol] 1.28 mg/dL 0.70-1.30 [facility] Comment on above: The validity of the calculated GFR & GFRAA in patients over 70 years has not been determined. Clinical correlation is essential. Serum or plasma urea nitroge n measurement (mass/volume)Ordered By: Sanjana Hale on 06-06-2023 Urea nitrogen [Mass/Vol] 17 mg/dL 7-18 [facility] Squamous epithelial cells de tection in urine sediment by light microscopyOrdered By: Sanjana Hale on 06-06-2023 Epithelial cells.squamous LM Ql (Urine sed) 0 SEEN /hpf 0-5 [facility] Thin prep Papanicolaou smear with manual screeningOrdered By: Sanjana Hale on 06-06-2023 Thin prep Papanicolaou smear with manual screening 4.3 g/dL 3.2-5.0 [facility] Thin prep Papanicolaou smear with manual screening 20 U/L 15-37 [facility] Thin prep Papanicolaou smear with manual screening 2 5-15 [facility] Urine blood detectionOrdered By: Sanjana Hale on 06-06-2023 RBC Ql (U) Negative Negative [facility] Urine clarityOrdered By: Kaylin Hale on 06-06-2023 Clarity (U) Clear Clear [facility] Urine color determinationOrd ered By: Sanjana Hale on 06-06-2023 Color (U) Yellow Yellow [facility] Urine glucose detectionOrder ed By: Sanjana Hale on 06-06-2023 Glucose Ql (U) Normal mg/dl Normal [facility] Urine leukocyte esterase det ection by dipstickOrdered By: Sanjana Hale on 06-06-2023 Leukocyte esterase Test strip Ql (U) Negative Negative [facility] Urine pHOrdered By: Sanjana oates on 06-06-2023 pH (U) 6.0 [pH] 5.0 - 8.0 [facility] Urine sediment bacteria coun t by microscopy (number/high power field)Ordered By: Sanjana Hale on 06-06-2023 Bacteria LM.HPF (Urine sed) [#/Area] 0 /[HPF] None Seen [facility] Urine specific gravity measu rementOrdered By: Sanjana Hale on 06-06-2023 Specific gravity (U) [Rel density] 1.015 1.002-1.030 [facility] Urine urobilinogen measureme ntOrdered By: Sanjana Hale on 06-06-2023 Urobilinogen Ql (U) Normal mg/dl Normal [facility] Basophil percentageOrdered B y: Sanjana Hale on 05-28-2023 Basophil percentage 0 SEEN /hpf 0-5 [facility] Bilirubin Test strip Ql (U)O rdered By: Sanjana Hale on 05-28-2023 Bilirubin Ql (U) Negative Negative [facility] Culture, urineOrdered By: Evelyn Hale on 05-28-2023 Bacteria identified Cx Nom (U) Culture exhibits no growth. [facility] Ketones Test strip Ql (U)Ord ered By: Sanjana Hale on 05-28-2023 Ketones Ql (U) Negative Negative [facility] Mucus LM Ql (Urine sed)Order ed By: Sanjana Hale on 05-28-2023 Mucus Ql (Urine sed) 0 SEEN /hpf [facility] Nitrite Test strip Ql (U)Ord ered By: Sanjana Hale on 05-28-2023 Nitrite Ql (U) Negative Negative [facility] No Panel InformationOrdered By: Sanjana Hale on 05-28-2023 Urine RBC 0 SEEN /hpf 0-5 [facility] Protein Test strip Ql (U)Ord ered By: Sanjana Hale on 05-28-2023 Protein Ql (U) 15 mg/dl Negative [facility] Squamous epithelial cells de tection in urine sediment by light microscopyOrdered By: Sanjana Hale on 05-28-2023 Epithelial cells.squamous LM Ql (Urine sed) 0-5 SEEN /hpf 0-5 [facility] Urine blood detectionOrdered By: Sanjana Hale on 05-28-2023 RBC Ql (U) Negative Negative [facility] Urine clarityOrdered By: Kaylin Hale on 05-28-2023 Clarity (U) Clear Clear [facility] Urine color determinationOrd ered By: Sanjana Hale on 05-28-2023 Color (U) Yellow Yellow [facility] Urine glucose detectionOrder ed By: Sanjana Hale on 05-28-2023 Glucose Ql (U) Normal mg/dl Normal [facility] Urine leukocyte esterase det ection by dipstickOrdered By: Sanjana Hale on 05-28-2023 Leukocyte esterase Test strip Ql (U) Negative Negative [facility] Urine pHOrdered By: Sanjana oates on 05-28-2023 pH (U) 6.0 [pH] 5.0 - 8.0 [facility] Urine sediment bacteria coun t by microscopy (number/high power field)Ordered By: Sanjana Hale on 05-28-2023 Bacteria LM.HPF (Urine sed) [#/Area] 0 /[HPF] None Seen [facility] Urine specific gravity measu rementOrdered By: Sanjana Hale on 05-28-2023 Specific gravity (U) [Rel density] 1.015 1.002-1.030 [facility] Urine urobilinogen measureme ntOrdered By: Sanjana Hale on 05-28-2023 Urobilinogen Ql (U) Normal mg/dl Normal [facility] Basophil percentageOrdered B y: Yolanda Vivar on 05-09-2023 Basophil percentage 0-5 SEEN /hpf 0-[address] 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 [facility] Ketones Test strip Ql (U)Ord ered By: Yolanda Vivar on 05-09-2023 Ketones Ql (U) Negative Negative [facility] Mucus LM Ql (Urine sed)Order ed By: Yolanda Vivar on 05-09-2023 Mucus Ql (Urine sed) 0 SEEN /hpf [facility] Nitrite Test strip Ql (U)Ord ered By: Yolanda Vivar on 05-09-2023 Nitrite Ql (U) Negative Negative [facility] No Panel InformationOrdered By: Yolanda Vivar on 05-09-2023 Urine RBC 0 SEEN /hpf 0-5 [facility] Protein Test strip Ql (U)Ord ered By: Yolanda Vivar on 05-09-2023 Protein Ql (U) Negative Negative [facility] Squamous epithelial cells de tection in urine sediment by light microscopyOrdered By: Yolanda Vivar on 05-09-2023 Epithelial cells.squamous LM Ql (Urine sed) 0-5 SEEN /hpf 0-5 [facility] Urine blood detectionOrdered By: Yolanda Vivar on 05-09-2023 RBC Ql (U) 10 /ul Negative [facility] Urine clarityOrdered By: Lincoln Vivar on 05-09-2023 Clarity (U) Clear Clear [facility] Urine color determinationOrd ered By: Yolanda Vivar on 05-09-2023 Color (U) Yellow Yellow [facility] Urine glucose detectionOrder ed By: Yolanda Vivar on 05-09-2023 Glucose Ql (U) Normal mg/dl Normal [facility] Urine leukocyte esterase det ection by dipstickOrdered By: Yolanda Vivar on 05-09-2023 Leukocyte esterase Test strip Ql (U) 25 /ul Negative [facility] Urine pHOrdered By: Yolanda Vivar on 05-09-2023 pH (U) 6.5 [pH] 5.0 - 8.0 [facility] Urine sediment bacteria coun t by microscopy (number/high power field)Ordered By: Yolanda Vivar on 05-09-2023 Bacteria LM.HPF (Urine sed) [#/Area] RARE /hpf None Seen [facility] Urine specific gravity measu rementOrdered By: Yolanda Vivar on 05-09-2023 Specific gravity (U) [Rel density] 1.015 1.002-1.030 [facility] Urine urobilinogen measureme ntOrdered By: Yolanda Vivar on 05-09-2023 Urobilinogen Ql (U) Normal mg/dl Normal [facility] 36on 04-30-2023 36 Multiple no shows an d cancellations. Needs seen in office for refills. [facility] Basophil percentageOrdered B y: Sanjana Hale on 03-21-2023 Bilirubin [Mass/Vol] 0.40 mg/dL 0.20-1.00 [facility] Comment on above: For patients on eltr ombopag therapy, use of Dimension Celeste TBIL is not recommended. Protein [Mass/Vol] 8.0 g/dL 6.4-8.2 [facility] Cholesterol [Mass/Vol] 153 mg/dL <[address] [facility] Comment on above: <200 mg/dL Desirable 200-240 mg/dL Borderline >240 mg/dL High Risk Triglyceride [Mass/Vol] 141 mg/dL <199 [facility] Comment on above: The drugs N-Acetylcy steine and Metamizole may falsely depress this assay.Serum Triglycerides Reference Interval Normal <150 mg/dL Borderline high 150 - 199 mg/dL High 200 - 499 mg/dL Very High > or = 500 mg/dL Direct bilirubinOrdered By: Sanjana Hale on 03-21-2023 Bilirubin.direct [Mass/Vol] 0.09 mg/dL 0.00-0.30 [facility] High density lipoprotein (HD L) measurementOrdered By: Sanjana Hale on 03-21-2023 Cholesterol in HDL (Body fld) [Mass/Vol] 37 mg/dL >40 [facility] Comment on above: The drugs N-Acetylcy steine and Metamizole may falsely depress this assay. Reference Range HDL <40 mg/dL Low HDL Cholesterol HDL >or= 60 mg/dL High HDL Cholesterol Laboratory - Chemistry and C hemistry - challengeOrdered By: Sanjana Hale on 03-21-2023 ALP [Catalytic activity/Vol] 57 U/L 45-117 [facility] ALT [Catalytic activity/Vol] 23 U/L 16-61 [facility] Globulin (S) [Mass/Vol] 3.7 g/dL 2.2-4.2 [facility] Low density lipoprotein (LDL ) cholesterol measurementOrdered By: Sanjana Hale on 03-21-2023 Cholesterol in LDL (Body fld) [Moles/Vol] 88 mg/dL 0-130 [facility] Screening prostate specific antigen (PSA) measurementOrdered By: Sanjana Hale on 03-21-2023 Prostate specific Ag IA [Mass/Vol] 0.34 ng/mL 0.00-4.00 [facility] Comment on above: This test was perfor med using the TPSA assay method for [employer] chemistry system. Values obtained with differentassay methods cannot be used interchangably.When changing PSA assays in the course of monitoring apatient, additional sequential testing should be carriedout to confirm baseline values. Thin prep Papanicolaou smear with manual screeningOrdered By: Sanjana Hale on 03-21-2023 Thin prep Papanicolaou smear with manual screening 4.3 g/dL 3.2-5.0 [facility] Thin prep Papanicolaou smear with manual screening 21 U/L 15-37 [facility] Very low density lipoprotein (VLDL) cholesterol measurementOrdered By: Sanjana Hale on 03-21-2023 Cholesterol in VLDL Calc [Moles/Vol] 28 mg/dL 5-40 [facility] Whole blood hemoglobin A1c/t otal hemoglobin ratio (mass fraction)Ordered By: Sanjana Hale on 03-21-2023 HbA1c (Bld) [Mass fraction] 5.3 % 3.8-5.6 [facility] Comment on above: Normal < 5.7 % Predi abetic 5.7 - 6.4 % Diabetic >or= 6.5 % Please note range changes. Absolute lymphocyte countOrd ered By: Ryan Ceja on 02-13-2023 Lymphocytes Auto (Unsp spec) [#/Vol] 0.89 10*3/uL 0.83-4.51 [facility] Basophil percentageOrdered B y: Ryan Ceja on 02-13-2023 Basophils/100 WBC (Bld) 0.3 % 0-1 [facility] Eosinophils/100 WBC (Bld) 0.8 % 0-5 [facility] Neutrophils (Bld) [#/Vol] 5.5 10*3/uL 2.0-7.7 [facility] Neutrophils/100 WBC (Bld) 77.5 % 47-70 [facility] WBC (Bld) [#/Vol] 7.1 10*3/uL 4.4-11.0 [facility] Blood erythrocytes count (nu mber/volume)Ordered By: Ryan Ceja on 02-13-2023 RBC (Bld) [#/Vol] 4.10 10*6/uL 4.6-6.2 [facility] Blood hemoglobin measurement (mass/volume)Ordered By: Ryan Ceja on 02-13-2023 Hemoglobin (Bld) [Mass/Vol] 12.3 g/dL 13.0-16.5 [facility] Blood lymphocytes/100 leukoc ytesOrdered By: Ryan Ceja on 02-13-2023 Lymphocytes/100 WBC (Bld) 12.6 % 19-41 [facility] Blood monocytes/100 leukocyt esOrdered By: Ryan Ceja on 02-13-2023 Monocytes/100 WBC (Bld) 8.5 % 0-10 [facility] Blood platelet mean volumeOr dered By: Ryan Ceja on 02-13-2023 Platelet mean volume (Bld) [Entitic vol] 9.6 fL 6.2-12.0 [facility] Determination of erythrocyte mean corpuscular volume (MCV)Ordered By: Ryan Ceja on 02-13-2023 MCV (RBC) [Entitic vol] 92.7 fL 80-94 [facility] Hematocrit Auto (Bld) [Volum e fraction]Ordered By: Ryan Ceja on 02-13-2023 Hematocrit (Bld) [Volume fraction] 38.0 % 40-54 [facility] Laboratory - CoagulationOrde red By: Ryan Ceja on 02-13-2023 aPTT Coag (Bld) [Time] 47.0 s 24.1-36.[address] [facility] Laboratory - Hematology and Cell countsOrdered By: Ryan Ceja on 02-13-2023 Erythrocyte distribution width (RBC) [Entitic vol] 45.6 fL 35.1-43.9 [facility] Erythrocyte distribution width (RBC) [Ratio] 13.4 % 11.6-14.6 [facility] Immature granulocytes/100 WBC (Bld) 0.300 % 0.0-0.9 [facility] Comment on above: IG% - Immature Granu locytes (promyelocytes, myelocytes and metamyelocytes) > 1% indicates that a LEFT SHIFT is Present. MCH (RBC) [Entitic mass] 30.0 pg 27.0-32.0 [facility] Nucleated RBC/100 WBC (Bld) [Ratio] 0 % 0-5 [facility] MCHC Auto (RBC) [Mass/Vol]Or dered By: Ryan Ceja on 02-13-2023 MCHC (RBC) [Mass/Vol] 32.4 g/dL 32-36 [facility] Platelets bldOrdered By: Suzette Ceja on 02-13-2023 Platelets (Bld) [#/Vol] 202 10*3/uL 150-450 [facility] Basophil percentageOrdered B y: Ryan Ceja on 02-12-2023 Chloride [Moles/Vol] 113 mmol/L 98-107 [facility] Glucose [Mass/Vol] 95 mg/dL 74-106 [facility] Potassium [Moles/Vol] 4.4 mmol/L 3.5-5.1 [facility] Sodium [Moles/Vol] 141 mmol/L 136-145 [facility] Laboratory - Chemistry and C hemistry - challengeOrdered By: Ryan Ceja on 02-12-2023 CO2 [Moles/Vol] 26.0 mmol/L 21.0-32.0 [facility] Urea nitrogen/Creatinine [Mass ratio] 14.7 mg/mg 10-20 [facility] No Panel InformationOrdered By: Ryan Ceja on 02-12-2023 Activated Clotting Time 212 sec 74-137 [facility] Estimated Creatinine Clearance Calc 82.74 ml/min [facility] Estimated GFR (MDRD) Amer 88 mL/min >60 [facility] Comment on above: GFR Calc Estimated GFR (MDRD) Non-Af Amer 73 mL/min >60 [facility] Comment on above: Non- GFR Calc Serum or plasma calcium jamila urement (mass/volume)Ordered By: Ryan Ceja on 02-12-2023 Calcium [Mass/Vol] 9.9 mg/dL 8.5-10.1 [facility] Serum or plasma creatinine m easurement (mass/volume)Ordered By: Ryan Ceja on 02-12-2023 Creatinine [Mass/Vol] 1.09 mg/dL 0.70-1.30 [facility] Comment on above: The validity of the calculated GFR & GFRAA in patients over 70 years has not been determined. Clinical correlation is essential. Serum or plasma urea nitroge n measurement (mass/volume)Ordered By: Ryan Ceja on 02-12-2023 Urea nitrogen [Mass/Vol] 16 mg/dL 7-18 [facility] Thin prep Papanicolaou smear with manual screeningOrdered By: Ryan Ceja on 02-12-2023 Thin prep Papanicolaou smear with manual screening 2 5-15 [facility] Basophil percentageOrdered B y: Ryan Ceja on 02-07-2023 Basophil percentage < 1.0 mg/dL 0.70-1.30 [facility] No Panel InformationOrdered By: Fabio Day on 02-07-2023 Thyroid Stimulating Hormone (TSH) 1.36 uIU/mL 0.358-3.74 [facility] No Panel InformationOrdered By: Ryan Ceja on 02-07-2023 Bedside Estimated GFR (eGFR) > 60.0000 mL/min >60 [facility] 36on 01-29-2023 36 Medication name: tamsulosin [...] prior to picking up the medication: No [address] 01-25-2023 36 90 day supply for cabergoiline sent [place] [address] Name of caller: Flower crowe Contact phone number: [phone] Relationship to Patient: patient Provider: Dr Ruiz Practice: Endo Chief Complaint/Reason for Call: Pt states that Dr Mendoza was aware that the pt was on vacation and that Dr Mendoza wanted to know immediately when the pt came back in town so that a prescription of a 90 day supply of cabergoline (Dostinex) 0.5 MG tablet [[id number]] would be call in to the [facility] pharmacy on file. Pt states is all out of the medication. Please advise Best time of day caller can be reached: Any Patient advised that office/PCP has 24-48 business hours to return their call: Yes [address] 01-09-2023 36 Pa approved [address] 01-08-2023 Submitted PA for testosterone pump 2 pumps daily for 150g for a 30 day supply. Waiting on determination from [facility]. [address] 01-04-2023 36 Was informed by pharmacy that prescription for androgel needs prior auth , can you please help with this ? Thanks [place] [address] Patient was here in the clinic to [...] 01/03/2023 TESTOSTERONE 72 - 623 ng/dL 103 [place] [address] It looks like you sent the cabergoline in on 01/02/23, but does he take testosterone? I do not see it. Normal [facility] 36 Name of caller: Flower crowe Contact phone number: [phone] Relationship to Patient: patient Provider: Joseph Practice: [...] hours to return their call: Yes Normal [facility] 25-hydroxyvitamin D3 [Mass/V ol]on 01-03-2023 Interpretation and review of laboratory results Normal [facility] Therapy is based on measurement of Total 25-OHD with the following classification levels: Less than 20 ng/mL: Indicative of Vit D deficiency 20-30 ng/mL: Suggests Vit D insufficiency Optimal: Greater than or equal to 30 ng/mL Test performed by [employer] Competitive Immunoassay, measuring Total Vitamin D, not individual fractions. [facility] COMPREHENSIVE METABOLIC PANE [place] 01-03-2023 Albumin [Mass/Vol] 4.7 g/dL Normal 3.5-5.0 [facility] Comment on above: Performed By: #### L [id number] #### Newspaper Writer: LENORE ESCOBAR ([phone]) [facility] ([facility]) [address] [place] [address] ALP [Catalytic activity/Vol] 46 U/L Normal 38-126 [facility] Comment on above: Performed By: #### L [id number] #### Newspaper Writer: LENORE ESCOBAR ([phone]) [facility] ([facility]) [address] [place] [address] [place] ALT [Catalytic activity/Vol] 17 U/L Normal 0-49 [facility] Comment on above: Performed By: #### L [id number] #### Newspaper Writer: LENORE ESCOBAR ([phone]) [facility] ([facility]) [address] [place] [address] Anion gap [Moles/Vol] 11 mmol/L Normal 3-13 [facility] Comment on above: Performed By: #### L [id number] #### Newspaper Writer: LENORE ESCOBAR ([id number]) [facility] ([facility]) [address] [place] [address] [place] AST [Catalytic activity/Vol] 23 U/L Normal 15-46 [facility] Comment on above: Performed By: #### L [id number] #### Newspaper Writer: LENORE ESCOBAR ([id number]) [facility] ([facility]) [address] [place] [address] [place] Bilirubin [Mass/Vol] 0.5 mg/dL Normal 0.2-1.3 [facility] Comment on above: Performed By: #### L [id number] #### Newspaper Writer: LENORE ESCOBAR ([id number]) [facility]) [address] [place] [address] Calcium [Mass/Vol] 10.5 mg/dL High 8.4-10.4 [facility] Comment on above: Performed By: #### L [id number] #### Newspaper Writer: LENORE ESCOBAR ([phone]) [facility] ([facility]) [address] [place] [address] [place] Chloride [Moles/Vol] 109 mmol/L High 98-107 [facility] Comment on above: Performed By: #### L [id number] #### Newspaper Writer: LENORE ESCOBAR ([phone]) [facility] ([facility]) [address] [place] [address] [place] CO2 [Moles/Vol] 20 mmol/L Low 22-30 [facility] Comment on above: Performed By: #### L [id number] #### Newspaper Writer: LENORE ESCOBAR ([phone]) [facility] ([facility]) [address] [place] [address] [place] Creatinine [Mass/Vol] 1.20 mg/dL Normal 0.66-1.25 [facility] Comment on above: Performed By: #### L [id number] #### Newspaper Writer: LENORE ESCOBAR ([phone]) [facility] ([facility]) [address] [place] [address] [place] GLOMERULAR FILTRATION RATE ML/MIN/1.73 SQ M.PREDICTED 68.8 mL/min/1.73m*2 Normal >60.0 [facility] Comment on above: Result Comment: Calc ulation based on the Chronic Kidney Disease Epidemiology Collaboration (CKD-EPI) equation refit without adjustment for race Performed By: #### L [id number] #### Newspaper Writer: LENORE ESCOBAR ([id number]) [facility] [address] [place] [address] Glucose [Mass/Vol] 113 mg/dL High 70-100 [facility] Comment on above: Performed By: #### L [id number] #### Newspaper Writer: LENORE ESCOBAR ([phone]) [facility] ([facility]) [address] [place] [address] Potassium [Moles/Vol] 4.5 mmol/L Normal 3.5-5.1 [facility] Comment on above: Performed By: #### L [id number] #### Newspaper Writer: LENORE ESCOBAR ([id number]) [facility] [address] [place] [address] Protein [Mass/Vol] 7.9 g/dL Normal 6.3-8.2 [facility] Comment on above: Performed By: #### L [id number] #### Newspaper Writer: LENORE ESCOBAR ([id number]) [facility] ([facility]) [address] [place] [address] Sodium [Moles/Vol] 140 mmol/L Normal 135-145 [facility] Comment on above: Performed By: #### L [id number] #### Newspaper Writer: LENORE ESCOBAR ([id number]) [facility] ([facility]) [address] [place] [address] [place] Urea nitrogen [Mass/Vol] 20 mg/dL Normal 9-20 [facility] Comment on above: Performed By: #### L [id number] #### Newspaper Writer: LENORE ESCOBAR ([id number]) [facility] [address] [place] [address] Comprehensive metabolic 1998 panelon 01-03-2023 Albumin [Mass/Vol] 4.7 g/dL 3.5 - 5.0 g/dL [facility] ALP [Catalytic activity/Vol] 46 U/L 38 - 126 U/L [facility] ALT [Catalytic activity/Vol] 17 U/L 0 - 49 U/L [facility] Anion gap [Moles/Vol] 11 mmol/L 3 - 13 mmol/L [facility] AST [Catalytic activity/Vol] 23 U/L 15 - 46 U/L [facility] Bilirubin [Mass/Vol] 0.5 mg/dL 0.2 - 1 .3 mg/dL [facility] Calcium [Mass/Vol] 10.5 mg/dL High 8.4 - 10. 4 mg/dL [facility] Chloride [Moles/Vol] 109 mmol/L High 98 - 10 7 mmol/L [facility] CO2 [Moles/Vol] 20 mmol/L Low 22 - 30 mmol/L [facility] Creatinine [Mass/Vol] 1.20 mg/dL 0.66 - 1.25 mg/dL [facility] GFR/1.73 sq M.predicted MDRD (S/P/Bld) [Vol rate/Area] 68.8 mL/min/{1.73_m2} - PINF [facility] Comment on above: Calculation based on the Chronic Kidney Disease Epidemiology Collaboration (CKD-EPI) equation refit without adjustment for race Glucose [Mass/Vol] 113 mg/dL High 70 - 100 mg/dL [facility] Interpretation and review of laboratory results Abnormal [facility] Potassium [Moles/Vol] 4.5 mmol/L 3.5 - 5.1 mmol/L [facility] Protein [Mass/Vol] 7.9 g/dL 6.3 - 8.2 g/dL [facility] Sodium [Moles/Vol] 140 mmol/L 135 - 145 mmol/L [facility] Urea nitrogen [Mass/Vol] 20 mg/dL 9 - 20 mg/dL [facility] FOLLICLE STIMULATING HORMONE on 01-03-2023 FOLLICLE STIM HORMONE 7.3 mIU/mL Normal [facility] Comment on above: Result Comment: JULISSA Issa COMMENTS: Females: Follicular Phase ...... 2.0-11.6 Mid-cycle Peak ........ 5.1-23.4 Luteal Phase .......... 1.4-9.6 Post-menopausal ....... 21.5-131.0 Males: 1.6-9.7 Performed By: #### L [id number] #### Newspaper Writer: LENORE ESCOBAR ([phone]) [facility] ([facility]) [address] [place] [address] [place] FREE T4on 01-03-2023 Free T4 [Mass/Vol] 0.87 ng/dL Normal 0.78-2.19 [facility] Comment on above: Performed By: #### L [id number] #### Newspaper Writer: LENORE ESCOBAR ([id number]) [facility] ([facility]) [address] [place] [address] Follicle stimulating hormone on 01-03-2023 Follitropin Qn 7.3 m[IU]/mL mIU/mL [facility] Females: Follicular Phase ...... 2.0-11.6 Mid-cycle Peak ........ 5.1-23.4 Luteal Phase .......... 1.4-9.6 Post-menopausal ....... 21.5-131.0 Males: 1.6-9.7 [facility] Free T4 [Mass/Vol]on 023 Free T4 Dialysis [Mass/Vol] 0.87 ng/dL 0.78 - 2.19 ng/dL [facility] Interpretation and review of laboratory results Normal [facility] HEMOGLOBIN AND HEMATOCRIT, B LOODon 01-03-2023 Hematocrit (Bld) [Volume fraction] 42.3 % Normal 40.0-52.0 [facility] Comment on above: Performed By: #### L [id number] #### Newspaper Writer: LENORE ESCOBAR ([id number]) [facility] ([facility]) [address] [place] [address] Hemoglobin (Bld) [Mass/Vol] 14.4 g/dL Normal 13.0-18.0 [facility] Comment on above: Performed By: #### L [id number] #### Newspaper Writer: LENORE ESCOBAR ([phone]) [facility] ([facility]) [address] Hemoglobin (Bld) [Mass/Vol]o n 01-03-2023 Hematocrit (Bld) [Volume fraction] 42.3 % 40.0 - 52.0 % [facility] Interpretation and review of laboratory results Normal [facility] Hemoglobin and hematocrit, b loodon 01-03-2023 Hemoglobin (Bld) [Mass/Vol] 14.4 g/dL 13.0 - 18.0 g/dL [facility] LUTEINIZING HORMONEon 2022 LUTEINIZING HORMONE 4.8 mIU/mL Normal [facility] Comment on above: Result Comment: Fema les: Follicular Phase ...... 1.9-26.2 Mid-Cycle Peak ........ 22.8-76.1 Luteal Phase .......... 0.6-16.6 Post-menopausal ....... 8.6-61.8 (Not on MHT) Males: 1.2-10.6 Performed By: #### L [id number] #### Newspaper Writer: LENORE ESCOBAR ([id number]) [facility] ([facility]) [address] [place] [address] Luteinizing hormoneon 2022 Lutropin Qn 4.8 m[IU]/mL mIU/mL [facility] Comment on above: Females: Follicular Phase ...... 1.9-26.2 Mid-Cycle Peak ........ 22.8-76.1 Luteal Phase .......... 0.6-16.6 Post-menopausal ....... 8.6-61.8 (Not on MHT) Males: 1.2-10.6 No Panel Informationon 01-03 [facility] PROLACTINon 01-03-2023 PROLACTIN 29.4 ng/mL High 4.0-18.0 [facility] Comment on above: Result Comment: ORDE R COMMENTS: Values below 35 ng/mL may be of doubtful significance. Recommend send-out testing to rule out macroprolactin to confirm the result. Performed By: #### L [id number] #### Newspaper Writer: LENORE ESCOBAR ([phone]) [facility] ([facility]) [address] [place] [address] PSA TOTAL (SCREENING)on PROSTATE SPECIFIC AG SCREEN 0.2 ng/mL Normal <4.0 [facility] Comment on above: Result Comment: JULISSA Issa COMMENTS: Testing performed on the [employer] i using the chemiluminescent microparticle immunoassay method. Results obtained by different methods should not be used interchangeably. PSA result is based on a new assay run on a new instrument and the results may not be comparable with assays run prior to 11/13/2022. Performed By: #### L [id number] #### Newspaper Writer: LENORE ESCOBAR ([phone]) [facility] ([facility]) [address] [place] [address] PSA Total (Screening)on Interpretation and review of laboratory results Normal [facility] Prostate specific Ag [Mass/Vol] 0.2 ng/mL NINF - 4.0 ng/mL [facility] [employer] Testing performed on the [employer] i using the chemiluminescent microparticle immunoassay method. Results obtained by different methods should not be used interchangeably. PSA result is based on a new assay run on a new instrument and the results may not be comparable with assays run prior to 11/13/2022. [facility] PTH INTACTon 01-03-2023 PTH, INTACT 51.7 pg/mL Normal 7.5-53.5 [facility] Comment on above: Performed By: #### L [id number] #### Newspaper Writer: LENORE ESCOBAR ([id number]) [facility] ([facility]) [address] [place] [address] PTH, intacton 01-03-2023 Parathyrin.intact [Mass/Vol] 51.7 pg/mL 7.5 - 53.5 pg/mL [facility] Parathyrin.intact [Mass/Vol] on 01-03-2023 Interpretation and review of laboratory results Normal [facility] Prolactinon 01-03-2023 Interpretation and review of laboratory results Abnormal [facility] Prolactin [Mass/Vol] 29.4 ng/mL High 4.0 - 1 8.0 ng/mL [facility] Values below 35 ng/m L may be of doubtful significance. Recommend send-out testing to rule out macroprolactin to confirm the result. [facility] TESTOSTERONEon 01-03-2023 Testosterone [Mass/Vol] 103 ng/dL Normal 72-623 [facility] Comment on above: Performed By: #### L [id number] #### Newspaper Writer: LENORE ESCOBAR ([id number]) [facility] ([facility]) [address] [place] [address] THYROID STIMULATING HORMONEo n 01-03-2023 THYROID STIMULATING HORMONE 2.568 uIU/mL Normal 0.465-4.680 [facility] Comment on above: Performed By: #### L [id number] #### Newspaper Writer: LENORE ESCOBAR ([phone]) [facility] ([facility]) [address] [place] [address] TSHon 01-03-2023 TSH Qn 2.568 m[IU]/L [facility] h TSH Qnon 01-03-2023 Interpretation and review of laboratory results Normal [facility] th [facility] Testosteroneon 01-03-2023 Interpretation and review of laboratory results Normal [facility] Testosterone [Mass/Vol] 103 ng/dL 72 - 623 ng/dL [facility] VITAMIN D DEFICIENCY SCREENI NG (VIT D 25)on 01-03-2023 VIT D 25-OH, TOTAL 33 ng/mL Normal 30-100 [facility] Comment on above: Result Comment: JULISSA Issa COMMENTS: Therapy is based on measurement of Total 25-OHD with the following classification levels: Less than 20 ng/mL: Indicative of Vit D deficiency 20-30 ng/mL: Suggests Vit D insufficiency Optimal: Greater than or equal to 30 ng/mL Test performed by [employer] Competitive Immunoassay, measuring Total Vitamin D, not individual fractions. Performed By: #### L [id number] #### Newspaper Writer: LENORE ESCOBAR ([id number]) [facility] ([facility]) [address] [place] [address] Vitamin D Deficiency Screeni ng (Vit D 25)on 01-03-2023 25-hydroxyvitamin D3 [Mass/Vol] 33 ng/mL 30 - 100 ng/mL [facility] 36on 01-02-2023 36 called and spoke wit h pharmacist, insurance will not cover a 90-day supply right now but will cover a 30-day supply. Prescription for 30 days sent to the pharmacy, informed patient. [facility] 36 Pt called and states that pharmacy refuses to refill the cabergoline Script that you sent in today. States that they can not refill until 01/24/23 and he will be without medication for 2 weeks by that point and will also be out of town on that date. Pt requesting a call back CHANCE. Normal [facility] Office Visiton 01-02-2023 Follow-up visit [id number] [place] 1960 [facility] Provider Department [place] 01/02/2023 [id number]-HFIGJBXSOROCIO SCHUSTERSHMG SB END None Family History Adopted: Yes Problem Relation Age of Onset No Known Problems Father Cancer Mother Comments: lung Family Status - Relation Status Age at Father Mother Level of Service:15383 [place] OFFICE/OUTPATIENT ESTABLISHED MOD MDM 30-39 MIN Reason for Visit and Comments: Follow-up [052271] Hypothyroidism [143] pituitary macroprolactinoma [Other] [facility] Follow-up visit [id number] [place] 1960 [facility] Provider Department Center 01/02/2023 [id number] VÁZQUEZ SHMG GIACOMO BAR None Family History Adopted: Yes Problem Relation Age of Onset No Known Problems Father Cancer Mother Comments: lung Family Status - Relation Status Age at Father Mother Level of Service:63017 SC OFFICE/OUTPATIENT ESTABLISHED LOW MDM 20-29 MIN Reason for Visit and Comments: Post-op [483] - 1st po L iliofemoral DVT thrombectomy 12/21/22 [facility] Progress Noteon 01-02-2023 Progress Note [facility] ENDOCRINOLOGY [address] [facility] [address] [facility] [address] Dept: [phone] Dept Loc: [phone] Visit type: Established Reason for Visit: Follow-up, [...] Cheryl Basilio MD Referring is PCP Previous Professor Of Genetics: Dr Sal & Dr Benito [facility]: [facility] Last [...] is supposed to have followed up with solar installation foreman Dr. Monge , but has missed his [...] fenofibrate (Triglide) 160 (more content not included)... Normal [facility] Progress Note 01/02/2023 Corrie Queen 1960 Chief [...] guarantee Follow up for any concerns. . [facility] Progress Noteon 12-31-2022 Progress Note Chart reviewed of ED follow up Seen in [facility] ED on 12/25/2022 Reason: Bleeding post-op Discharge [...] Davonte SANDERSON Vascular surgery. Seen in [facility] on 12/22/22 for Flank pain was seen she has been in contact with her PCP. On 12/25/22 she was admitted for Sebaceous cyst of left eyelid. [facility] 36on 12-26-2022 36 Left detailed VM per patient request to inform. [facility] 36 Pt just had surgery yesterday--planned OV 01/02 Would advise patient wait until evaluated at post op appointment [facility] 36 Patient had L leg venogram 12/25/22 [...] vein. Next OV 01/02/[address] Arauz. [facility] [id number] 12-25-2022 [id number] Patient upset jaceyin g to leave,eye drops called to his pharmacy, patient transported out via w/c with the daughter [facility] [id number] Patient post bedrest is complains of left eye pain and light sensitivity, upon attempting to open the eye, Dr Cornelius contacted and re recommends eye oint for 2 days and follow up with eye MD if no better in 2 days , Resident Pacheco Santiago notified they will place new orders. [facility] [id number] Discharge instructions reviewed with the patient and the daughter, patient to follow up with after discharge, no further questions , patient instructed on surgical site care. [facility] [id number] Family notified of arrival to [facility] 36on 12-25-2022 36 Mychart message sent [facility] ED Nursing Noteon 12-25-2022 ED Nursing Note Bleeding subsided. P t given dc instructions and follow up care. Pt verbalizes understanding. Pt amb indep to dc area, home w family [facility] ED Nursing Note Patient ambulatory t o [...] preparing for surgery. Call light in reach. [facility] ED Provider Noteon ED Provider Note Emergency Department Encounter [facility] ED Patient: Corrie Queen : 1960 Date [...] MD [employer] Pacheco Ortiz MD 12/25/22 2017 [facility] [place] GUIDANCE OR USE ONLY - NO N RESULTABLEon 12-25-2022 There is no interpretation needed for this exam. 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 ([facility]) [I82.529] Procedures LEFT LEG VENOGRAM 29743 - SC PRQ TRANSLUMINAL MECHANICAL THROMBECTOMY VEIN TRANSCATHETER PLACEMENT OF AN INTRAVASCULAR STENT(S), OPEN OR PERCUTANEOUS INITIAL VEIN 79527 - SC OPEN/PERQ PLACEMENT INTRAVASCULAR STENT SAME 1ST Surgeons * Ziggy Arauz - Primary Procedure Summary Anesthesia: General ASA: III Estimated Blood Loss: Minimal Drains: * None in log * Staff: Chief Pilot: Elsi Mitchell RN Relief Chief Pilot: Carla Hayden RN Relief Scrub: Alis Smith RN Scrub Person: Yolanda Luigi Findings: see full op note Complications: None; [...] antibiotics are not indicated for this procedure. [facility] 36on 12-24-2022 36 Urinalysis and urine culture still show no signs of infection. Thanks [facility] 36 Name of caller: Flower Queen Contact phone number: [phone] Relationship to Patient: patient Provider: Dr. Basilio [...] business hours to return their call: Yes [facility] 36 Name of caller: Flower Queen Contact phone number: [phone] Relationship to Patient: patient Provider: Dr. Basilio [...] hours to return their call: Yes Normal [facility] 36on 12-22-2022 36 S: Patient spoke wit h CAC nurse regarding flank pain B: Onset [...] seen at beginning of the week in [place]. Urine was negative at that time. Was [...] Patient verbalizes understanding. States will go to [place] ED because has not had luck at [place]. Instructed to call back with any further questions or concerns. Reason for Disposition [1] Abdominal pain AND [2] age > 60 years Protocols used: Flank [id number] Normal [facility] BASIC METABOLIC PANELon 11-26 Anion gap [Moles/Vol] 10 mmol/L Normal 3-13 [facility] Comment on above: Performed By: #### L [id number] #### Newspaper Writer: LENORE ESCOBAR ([phone]) [facility] ([facility]) [address] Calcium [Mass/Vol] 10.5 mg/dL High 8.4-10.4 [facility] Comment on above: Performed By: #### L [id number] #### Newspaper Writer: LENORE ESCOBAR ([phone]) [facility] ([facility] [address] [place] [address] Chloride [Moles/Vol] 109 mmol/L High 98-107 [facility] Comment on above: Performed By: #### L [id number] #### Newspaper Writer: LENORE ESCOBAR ([phone]) [facility] ([facility] [address] [place] [address] CO2 [Moles/Vol] 22 mmol/L Normal 22-30 [facility] Comment on above: Performed By: #### L [id number] #### Newspaper Writer: LENORE ESCOBAR ([phone]) [facility] ([facility] [address] [place] [address] Creatinine [Mass/Vol] 1.18 mg/dL Normal 0.66-1.25 [facility] Comment on above: Performed By: #### L [id number] #### Newspaper Writer: LENORE ESCOBAR ([phone]) [facility] ([facility]) [address] [place] [address] GLOMERULAR FILTRATION RATE ML/MIN/1.73 SQ M.PREDICTED 70.2 mL/min/1.73m*2 Normal >60.0 [facility] Comment on above: Result Comment: Calc ulation based on the Chronic Kidney Disease Epidemiology Collaboration (CKD-EPI) equation refit without adjustment for race Performed By: #### L [id number] #### Newspaper Writer: LENORE ESCOBAR ([phone]) [facility] ([facility]) [address] [place] [address] [place] Glucose [Mass/Vol] 104 mg/dL High 70-100 [facility] Comment on above: Performed By: #### L [id number] #### Newspaper Writer: LENORE ESCOBAR ([phone]) [facility] ([facility]) [address] [place] [address] [place] Potassium [Moles/Vol] 4.1 mmol/L Normal 3.5-5.1 [facility] Comment on above: Performed By: #### L [id number] #### Newspaper Writer: LENORE ESCOBAR ([phone]) [facility] ([facility]) [address] [place] [address] Sodium [Moles/Vol] 142 mmol/L Normal 135-145 [facility] Comment on above: Performed By: #### L [id number] #### Newspaper Writer: LENORE ESCOBAR ([phone]) [facility] ([facility]) [address] [place] [address] Urea nitrogen [Mass/Vol] 18 mg/dL Normal 9-20 [facility] Comment on above: Performed By: #### L [id number] #### Newspaper Writer: LENORE ESCOBAR ([phone]) [facility] ([facility]) [address] [place] [address] Basic metabolic 1998 panelon 12-22-2022 Anion gap [Moles/Vol] 10 mmol/L 3 - 13 mmol/L [facility] Calcium [Mass/Vol] 10.5 mg/dL High 8.4 - 10. 4 mg/dL [facility] Chloride [Moles/Vol] 109 mmol/L High 98 - 10 7 mmol/L [facility] CO2 [Moles/Vol] 22 mmol/L 22 - 30 mmol/L [facility] Creatinine [Mass/Vol] 1.18 mg/dL 0.66 - 1.25 mg/dL [facility] GFR/1.73 sq M.predicted MDRD (S/P/Bld) [Vol rate/Area] 70.2 mL/min/{1.73_m2} - PINF [facility] Comment on above: Calculation based on the Chronic Kidney Disease Epidemiology Collaboration (CKD-EPI) equation refit without adjustment for race Glucose [Mass/Vol] 104 mg/dL High 70 - 100 mg/dL [facility] Interpretation and review of laboratory results Abnormal [facility] Potassium [Moles/Vol] 4.1 mmol/L 3.5 - 5.1 mmol/L [facility] Sodium [Moles/Vol] 142 mmol/L 135 - 145 mmol/L [facility] Urea nitrogen [Mass/Vol] 18 mg/dL 9 - 20 mg/dL [facility] CBC W Auto Differential pane l (Bld)Ordered By: Akila Denson on 12-22-2022 Basophils (Bld) [#/Vol] 0.0 10*3/uL 0.0 - 0.2 10*3/uL [facility] Basophils/100 WBC (Bld) 0.7 % 0.0 - 2.0 % [facility] Eosinophils (Bld) [#/Vol] 0.2 10*3/uL 0. 0 - 0.5 10*3/uL [facility] Eosinophils/100 WBC (Bld) 3.4 % 1.0 - 6.0 % [facility] Erythrocyte distribution width (RBC) [Ratio] 14.0 % 11.5 - 14.5 % [facility] Hematocrit (Bld) [Volume fraction] 41.6 % 40.0 - 52.0 % [facility] Hemoglobin (Bld) [Mass/Vol] 14.1 g/dL 13.0 - 18.0 g/dL [facility] Immature granulocytes (Bld) [#/Vol] 0.0 10*3/uL NINF - 0.0 10*3/uL [facility] Immature granulocytes/100 WBC (Bld) 0.2 % High NINF - 0.0 % [facility] Interpretation and review of laboratory results Abnormal [facility] th Lymphocytes (Bld) [#/Vol] 1.7 10*3/uL 1. 0 - 4.3 10*3/uL [facility] Lymphocytes/100 WBC (Bld) 30.9 % 20 .0 - 40.0 % [facility] MCH (RBC) [Entitic mass] 31.2 pg 26. 0 - 34.0 pg [facility] MCHC (RBC) [Mass/Vol] 33.9 % 32.0 - 36.0 % [facility] MCV (RBC) [Entitic vol] 92.0 fL 80.0 - 98.0 fL [facility] Monocytes (Bld) [#/Vol] 0.5 10*3/uL 0.0 - 0.8 10*3/uL [facility] Monocytes/100 WBC (Bld) 8.8 % 2.0 - 10.0 % [facility] Neutrophils (Bld) [#/Vol] 3.0 10*3/uL 1. 8 - 7.0 10*3/uL [facility] Neutrophils/100 WBC (Bld) 56.0 % 40 .0 - 80.0 % [facility] Platelet mean volume (Bld) [Entitic vol] 9.1 fL 7.4 - 12.4 fL [facility] Comment on above: MPV is a calculated measurement using platelet volume ratio Platelets (Bld) [#/Vol] 243 10*3/uL 140 - 440 10*3/uL [facility] RBC (Bld) [#/Vol] 4.52 10*6/uL 4.40 - 5.9 0 10*6/uL [facility] WBC (Bld) [#/Vol] 5.4 10*3/uL 3.6 - 10.7 10*3/uL [facility] CBC WITH AUTO DIFFERENTIALon 12-22-2022 Basophils (Bld) [#/Vol] 0.0 10*3/uL Normal 0.0-0.2 [facility] Comment on above: Performed By: #### L [id number] #### Newspaper Writer: LENORE ESCOBAR ([phone]) [facility] ([facility]) [address] [place] [address] [place] Basophils/100 WBC (Bld) 0.7 % Normal 0.0-2.0 S [facility] Comment on above: Performed By: #### L [id number] #### Newspaper Writer: LENORE ESCOBAR ([phone]) [facility] ([facility]) [address] [place] [address] [place] Eosinophils (Bld) [#/Vol] 0.2 10*3/uL Normal 0.0-0.5 [facility] Comment on above: Performed By: #### L [id number] #### Newspaper Writer: LENORE ESCOBAR ([phone]) [facility] ([facility]) [address] [place] [address] [place] Eosinophils/100 WBC (Bld) 3.4 % Normal 1.0-6.0 [facility] Comment on above: Performed By: #### L [id number] #### Newspaper Writer: LENORE [id number]) [facility] ([facility]) [address] [place] [address] Erythrocyte distribution width (RBC) [Ratio] 14.0 % Normal 11.5-14.5 [facility] Comment on above: Performed By: #### L [id number] #### Newspaper Writer: LENORE ESCOBAR ([phone]) [facility] ([facility]) [address] [place] [address] ERYTHROCYTE MEAN CORPUSCULAR HEMOGLOBIN CONCENTRATION (G/DL) BY AUTOMATED 33.9 % Normal 32.0-36.0 [facility] Comment on above: Performed By: #### L [id number] #### Newspaper Writer: LENORE ESCOBAR ([id number]) [facility] ([facility]) [address] [place] [address] Hematocrit (Bld) [Volume fraction] 41.6 % Normal 40.0-52.0 [facility] Comment on above: Performed By: #### L [id number] #### Newspaper Writer: LENORE ESCOBAR ([phone]) [facility] ([facility]) [address] [place] [address] Hemoglobin (Bld) [Mass/Vol] 14.1 g/dL Normal 13.0-18.0 [facility] Comment on above: Performed By: #### L [id number] #### Newspaper Writer: LENORE ESCOBAR ([phone]) [facility] ([facility]) [address] [place] [address] IMMATURE GRANS (10*3/UL) IN BLOOD BY AUTOMATED COUNT 0.0 10*3/uL Normal <=0.0 [facility] Comment on above: Performed By: #### L [id number] #### Newspaper Writer: LENORE ESCOBAR ([phone]) [facility] ([facility]) [address] [place] [address] IMMATURE GRANS/100 LEUKOCYTES IN BLOOD BY AUTOMATED COUNT 0.2 % High <=0.0 [facility] Comment on above: Performed By: #### L [id number] #### Newspaper Writer: LENORE ESCOBAR ([phone]) [facility] ([facility]) [address] [place] [address] Lymphocytes (Bld) [#/Vol] 1.7 10*3/uL Normal 1.0-4.3 [facility] Comment on above: Performed By: #### L [id number] #### Newspaper Writer: LENORE ESCOBAR ([phone]) [facility] ([facility]) [address] [place] [address] Lymphocytes/100 WBC (Bld) 30.9 % Normal 20.0-40.0 [facility] Comment on above: Performed By: #### L [id number] #### Newspaper Writer: LENORE ESCOBAR ([id number]) [facility] ([facility]) [address] [place] [address] MCH (RBC) [Entitic mass] 31.2 pg Normal 26.0-34.0 [facility] Comment on above: Performed By: #### L [id number] #### Newspaper Writer: LENORE ESCOBAR ([phone]) [facility] ([facility]) [address] [place] [address] MCV (RBC) [Entitic vol] 92.0 fL Normal 80.0-98.0 S [facility] Comment on above: Performed By: #### L [id number] #### Newspaper Writer: LENORE ESCOBAR ([phone]) [facility] ([facility]) [address] [place] [address] Monocytes (Bld) [#/Vol] 0.5 10*3/uL Normal 0.0-0.8 [facility] Comment on above: Performed By: #### L [id number] #### Newspaper Writer: LENORE ESCOBAR ([phone]) [facility] ([facility]) [address] [place] [address] Monocytes/100 WBC (Bld) 8.8 % Normal 2.0-10.0 [facility] Comment on above: Performed By: #### L [id number] #### Newspaper Writer: LENORE ESCOBAR ([phone]) [facility] ([facility]) [address] [place] [address] Neutrophils (Bld) [#/Vol] 3.0 10*3/uL Normal 1.8-7.0 [facility] Comment on above: Performed By: #### L [id number] #### Newspaper Writer: LENORE ESCOBAR ([phone]) [facility] ([facility]) [address] [place] [address] Neutrophils/100 WBC (Bld) 56.0 % Normal 40.0-80.0 [facility] Comment on above: Performed By: #### L [id number] #### Newspaper Writer: LENORE ESCOBAR ([phone]) [facility] ([facility]) [address] [place] [address] Platelet mean volume (Bld) [Entitic vol] 9.1 fL Normal 7.4-12.4 [facility] Comment on above: Result Comment: MPV is a calculated measurement using platelet volume ratio Performed By: #### L [id number] #### Newspaper Writer: LENORE ESCOBAR ([phone]) [facility] ([facility]) [address] [place] [address] PLATELETS (10*3/UL) IN BLOOD AUTOMATED COUNT 243 10*3/uL Normal 140-440 [facility] Comment on above: Performed By: #### L [id number] #### Newspaper Writer: LENORE ESCOBAR ([id number]) [facility] ([facility]) [address] [place] [address] RBC (Bld) [#/Vol] 4.52 10*6/uL Normal 4.40-5.90 [facility] Comment on above: Performed By: #### L [id number] #### Newspaper Writer: LENORE ESCOBAR ([phone]) [facility] ([facility]) [address] [place] [address] WBC (Bld) [#/Vol] 5.4 10*3/uL Normal 3.6-10.7 [facility] Comment on above: Performed By: #### L [id number] #### Newspaper Writer: LENORE ESCOBAR ([phone]) [facility] ([facility]) [address] [place] [address] COMPLETE URINALYSISon 2022 BILIRUBIN, TOTAL PRESENCE IN URINE Negative Normal Negative [facility] Comment on above: Performed By: #### L [id number] #### Newspaper Writer: LENORE ESCOBAR ([phone]) [facility] ([facility]) [address] [place] [address] Clarity (U) Clear Normal Clear [facility] Comment on above: Performed By: #### L [id number] #### Newspaper Writer: LENORE ESCOBAR ([id number]) [facility] ([facility]) [address] [place] [address] Color (U) Light Yellow Normal Lt. Yellow [facility] Comment on above: Performed By: #### L [id number] #### Newspaper Writer: LENORE ESCOBAR ([phone]) [facility] ([facility]) [address] [place] [address] GLUCOSE (MG/DL) IN URINE Normal Normal Nor mal (<70) [facility] Comment on above: Performed By: #### L [id number] #### Newspaper Writer: LENORE ESCOBAR ([phone]) [facility] ([facility]) [address] [place] [address] HEMOGLOBIN PRESENCE IN URINE Negative Normal Negative [facility] Comment on above: Performed By: #### L [id number] #### Newspaper Writer: LENORE ESCOBAR ([phone]) [facility] ([facility]) [address] [place] [address] Ketones Ql (U) Negative Normal Negative [facility] Comment on above: Performed By: #### L [id number] #### Newspaper Writer: LENORE ESCOBAR ([phone]) [facility] ([facility]) [address] [place] [address] [place] LEUKOCYTE ESTERASE PRESENCE IN URINE BY TEST STRIP Negative Normal Negative [facility] Comment on above: Performed By: #### L [id number] #### Newspaper Writer: LENORE ESCOBAR ([phone]) [facility] ([facility]) [address] [place] [address] NITRITE PRESENCE IN URINE Negative Normal Negative [facility] Comment on above: Performed By: #### L [id number] #### Newspaper Writer: LENORE ESCOBAR ([phone]) [facility] ([facility]) [address] [place] [address] pH (U) 5.5 [pH] Normal 5.0-8.0 [facility] Comment on above: Performed By: #### L [id number] #### Newspaper Writer: LENORE ESCOBAR ([phone]) [facility] ([facility]) [address] [place] [address] Protein (U) [Mass/Vol] Negative Normal Negative [facility] Comment on above: Performed By: #### L [id number] #### Newspaper Writer: LENORE ESCOBAR ([phone]) [facility] ([facility]) [address] [place] [address] Specific gravity (U) [Rel density] 1.016 Normal 1.005-1.030 [facility] Comment on above: Performed By: #### L [id number] #### Newspaper Writer: LENORE ESCOBAR ([phone]) [facility] ([facility]) [address] [place] [address] UROBILINOGEN (MG/DL) IN URINE Normal Normal Normal (0-1) [facility] Comment on above: Performed By: #### L [id number] #### Newspaper Writer: LENORE ESCOBAR ([phone]) [facility] ([facility]) [address] [place] [address] ED Nursing Noteon 12-22-2022 ED Nursing Note Informed Dr. Rodas s the pt was prescribed Cipro yesterday by Dr. Basilio. Pt had not previously mentioned this to ED providers. Dr. Negron at bedside again speaking with pt. Estefany Dunlap, RN 12/22/22 0832 Normal [facility] ED Nursing Note Pt ambulatory to ED3 [...] He states he saw Dr. Perales (per [facility] he went to the office and had a negative UA 12/18 but no record of an actual visit with Dr. Perales) and pt seems upset it was not sent for culture. Per [facility] the pt placed calls to the office/[facility] stating he needed IV abx specifically but was advised this is not indicated for negative UA. He then saw Dr. Basilio in [place] yesterday and had another UA as well [...] of distress noted. Pt negative/irritable during triage. Normal [facility] ED Provider Noteon ED Provider Note EMERGENCY [...] culture pending KUB and ultrasound unremarkable per [facility]. Patient is concerned that he [...] of pituitary gland and craniopharyngeal duct (pouch) ([facility]) Chest pain, unspecified Chills 05/28/2022 Chronic flank pain Chronic pain Diverticulitis DVT (deep venous thrombosis) ([facility]) 2022 left leg Esophageal reflux Essential [...] ALLERGIES Meperidine (more content not included)... Normal [facility] LACTIC ACID WITH REFLEXon Lactate [Moles/Vol] 1.2 mmol/L Normal 0.7-2.0 [facility] Comment on above: Performed By: #### L [id number] #### Newspaper Writer: LENORE ESCOBAR ([phone]) [facility] ([facility]) [address] [place] [address] Laboratory - Chemistry and C hemistry - challengeon 12-22-2022 Lactate [Moles/Vol] 1.2 mmol/L 0.7 - 2. 0 mmol/L [facility] No Panel Informationon 12-22 Interpretation and review of laboratory results Normal [facility] Urinalysis complete panel (U )on 12-22-2022 Bilirubin Ql (U) Negative Negative mg/dL [facility] Clarity (U) Clear Clear [facility] Color (U) Light Yellow Lt. Yellow [facility] Glucose Ql (U) Normal Normal (<70) mg/dL [facility] Hemoglobin Ql (U) Negative Negative mg/dL [facility] Interpretation and review of laboratory results Normal [facility] Ketones (U) [Mass/Vol] Negative Negat bharathi mg/dL [facility] Leukocyte esterase Test strip Ql (U) Negative Negative Irina/uL [facility] Nitrite Ql (U) Negative Negative [facility] th pH (U) 5.5 [pH] 5.0 - 8.0 pH [facility] Protein (U) [Mass/Vol] Negative Negat bharathi mg/dL [facility] Specific gravity (U) [Rel density] 1.016 1.005 - 1.030 [facility] Urobilinogen (U) [Mass/Vol] Normal Normal (0-1) mg/dL [facility] 36on 12-21-2022 36 S: Patient spoke bhargav [facility] nurse regarding kidney infection B: Onset of [...] or awakens from sleep) Protocols used: Flank [id number] Normal [facility] Office Visiton 12-21-2022 Follow-up visit [id number] [place] 1960 M Date Provider Department Center 12/21/2022 [id number] ERICKSON [facility] Family History Adopted: Yes Problem Relation Age of Onset No Known Problems Father Cancer Mother Comments: lung Family Status - Relation Status Age at Father Mother Level of Service:75534 [place] OFFICE/OUTPATIENT ESTABLISHED LOW [facility] 20-29 MIN Reason for Visit and Comments: OTHER [Other] - Pain right side back Normal [facility] Progress Noteon 12-21-2022 Progress Note [facility] INTERNAL MEDICINE [address] [facility] [address] [facility] [address] Dept: [phone] Dept Loc: [phone] Visit type: Established patient Reason for Visit: [...] of pituitary gland and craniopharyngeal duct (pouch) ([facility]) Chest pain, unspecified Chills 05/28/2022 Diverticulitis DVT (deep venous thrombosis) ([facility]) 2022 left leg Esophageal reflux Essential [...] (109 kg (more content not included)... Normal [facility] US RETROPERITONEALon 023 US RETROPERITONEAL Patient Name: [...] Electronically Signed Date/Time: 12/21/2022 1:07 PM EDT [facility] Retroperitoneumon 023 No hydronephrosis or echogenic shadowing renal calculi. Bilateral renal cysts including right parapelvic cyst and left simple cortical cysts. Report Dictated on Electronically Signed By: Jesús Danielson MD Electronically Signed Date/Time: 12/21/2022 1:07 PM EDT [facility] Patient Name: CORRIE QUEEN : 1960 Exam [...] upper pole. Bladder: Underdistended and suboptimally assessed. [facility] Jesús Danielson MD - 12/21/2022 Patient Name: [facility] : 1960 [id number] Exam Date/Time: 12/21/2022 13:05 Procedure: US RETROPERITONEAL [...] Electronically Signed Date/Time: 12/21/2022 1:07 PM EDT [facility] Radiology Study observation (narrative) [facility] alth US RetroperitoneumOrdered By : Jesús Danielson on 12-21-2022 [facility] [employer] Work Phone: XR Abdomen Single viewon Gas-filled [...] Electronically Signed Date/Time: 12/21/2022 1:08 PM EDT [facility] Patient Name: CORRIE QUEEN : 1960 Exam Date/Time: 12/21/2022 12:51 Procedure: XR ABDOMEN 1 VIEW Ordering Provider: BASILIO MICHAEL Reason For Exam: R flank pain ABDOMEN, 1 VIEW. CLINICAL INFORMATION: Right flank pain TECHNIQUE: Supine abdomen, 2 image(s) COMPARISON: Concurrent ultrasound 12/21/2022, CT 09/14/2022 RESULT: See impression. [facility] Jesús Danielson MD - 12/21/2022 Patient Name: [...] Electronically Signed Date/Time: 12/21/2022 1:08 PM EDT [facility] [employer] Radiology Study observation (narrative) [facility] alth XR Abdomen Single viewOrdere d By: Jesús Danielson on 12-21-2022 [employer] Work Phone: 36on 12-18-2022 36 Flow[employer] message sent Normal [facility] 36 Please schedule visi t to discuss. Thanks [facility] 36on 12-17-2022 36 S: Patient spoke wit h CAC nurse regarding right kidney pain B: [...] call back with new or worsening symptoms. [facility] 36 . Reason for Disposition MODERATE pain (e.g., interferes with normal activities or awakens from sleep) Protocols used: Flank Gyng-OOINE-FT [facility] 36 Notified Corrie. [facility] 36 Urine is completely clear, there is no blood or white blood cells in his urine I am not sure why he is having his pain. This does not look like any type of urinary tract infection. To see urology if he continues to have problems, I have nothing else to offer him at this time. [facility] 36 Pt reported that he was scheduled with urology last week but missed the appointment d/t needing to be seen for the blood clot. Advised him we need to get him in with urology chance after his surgery. UA results on your desk and order pended. [facility] 36 Patient stopped in and said [...] issue he is having fixed before then. [facility] Urinalysis macro (dipstick) panel (U)on 12-17-2022 Bilirubin, UA Negative [facility] h Blood, UA Negative [facility] Glucose, UA Negative [facility] Interpretation and review of laboratory results Normal [facility] Ketones, UA Negative [facility] Leukocytes, UA Negative [facility] Nitrite, UA Negative [facility] pH, UA 6.0 [facility] Protein, UA Negative [facility] Spec Grav, UA 1.030 [facility] U[facility], UA 0.2 [facility] He alth [facility] ECG 12-LEADon 12-16-2022 ECG 12-LEAD IMPRESSION: Sinus bradycardia Inferior infarct, old Electronically Signed On 12-16-2022 14:01:05 EDT by Alyssa Ag Normal [facility] 36on 12-14-[address] lung screen at this time due to having other health issues that he is dealing with right now. 12/14/22 SK Normal [facility] BASIC METABOLIC PANELon 11-25 Anion gap [Moles/Vol] 9 mmol/L Normal 3-13 [facility] Comment on above: Performed By: #### L [id number] #### Newspaper Writer: LENORE ESCOBAR ([phone]) [facility]) [address] [place] [address] Calcium [Mass/Vol] 11.2 mg/dL High 8.4-10.4 [facility] Comment on above: Performed By: #### L [id number] #### Newspaper Writer: LENORE ESCOBAR ([phone]) [facility]) [address] [place] [address] Chloride [Moles/Vol] 105 mmol/L Normal 98-107 [facility] Comment on above: Performed By: #### L [id number] #### Newspaper Writer: LENORE ESCOBAR ([phone]) [facility] ([facility]) [address] [place] [address] [place] CO2 [Moles/Vol] 25 mmol/L Normal 22-30 [facility] Comment on above: Performed By: #### L [id number] #### Newspaper Writer: LENORE ESCOBAR ([id number]) [facility]) [address] [place] [address] Creatinine [Mass/Vol] 1.53 mg/dL High 0.66-1.25 [facility] Comment on above: Performed By: #### L [id number] #### Newspaper Writer: LENORE ESCOBAR ([phone]) [facility] ([facility]) [address] [place] [address] GLOMERULAR FILTRATION RATE ML/MIN/1.73 SQ M.PREDICTED 51.4 mL/min/1.73m*2 Low >60.0 [facility] Comment on above: Result Comment: Calc ulation based on the Chronic Kidney Disease Epidemiology Collaboration (CKD-EPI) equation refit without adjustment for race Performed By: #### L [id number] #### Newspaper Writer: LENORE ESCOBAR ([phone]) [facility] ([facility]) [address] [place] [address] Glucose [Mass/Vol] 103 mg/dL High 70-100 [facility] Comment on above: Performed By: #### L [id number] #### Newspaper Writer: LENORE ESCOBAR ([phone]) [facility]) [address] [place] [address] Potassium [Moles/Vol] 5.1 mmol/L Normal 3.5-5.1 [facility] Comment on above: Performed By: #### L [id number] #### Newspaper Writer: LENORE ESCOBAR ([phone]) [facility] ([facility]) [address] [place] [address] Sodium [Moles/Vol] 139 mmol/L Normal 135-145 [facility] Comment on above: Performed By: #### L [id number] #### Newspaper Writer: LENORE ESCOBAR ([phone]) [facility]) [address] [place] [address] Urea nitrogen [Mass/Vol] 20 mg/dL Normal 9-20 [facility] Comment on above: Performed By: #### L [id number] #### Newspaper Writer: LENORE ESCOBAR ([phone]) [facility]) [address] [place] [address] BLOOD TYPE AND SCREEN GELon 12-13-2022 ABO GROUPING O Normal [facility] Comment on above: Performed By: #### L [id number] #### Newspaper Writer: LENORE ESCOBAR ([phone]) [facility] ([facility]) [address] [place] [address] RH TYPE IN BLOOD Positive Normal [facility] Comment on above: Performed By: #### L [id number] #### Newspaper Writer: LENORE ESCOBAR ([phone]) [facility] ([facility]) [address] [place] [address] CBC (HEMOGRAM)on 12-13-2022 Erythrocyte distribution width (RBC) [Ratio] 15.3 % High 11.5-14.5 [facility] Comment on above: Performed By: #### L [id number] #### Newspaper Writer: LENORE ESCOBAR ([phone]) [facility] ([facility]) [address] [place] [address] ERYTHROCYTE MEAN CORPUSCULAR HEMOGLOBIN CONCENTRATION (G/DL) BY AUTOMATED 33.2 % Normal 32.0-36.0 [facility] Comment on above: Performed By: #### L [id number] #### Newspaper Writer: LENORE ESCOBAR ([phone]) [facility] ([facility]) [address] [place] [address] Hematocrit (Bld) [Volume fraction] 43.8 % Normal 40.0-52.0 [facility] Comment on above: Performed By: #### L [id number] #### Newspaper Writer: LENORE ESCOBAR ([phone]) [facility]) [address] [place] [address] Hemoglobin (Bld) [Mass/Vol] 14.5 g/dL Normal 13.0-18.0 [facility] Comment on above: Performed By: #### L [id number] #### Newspaper Writer: LENORE ESCOBAR ([phone]) [facility] ([facility]) [address] [place] [address] MCH (RBC) [Entitic mass] 30.9 pg Normal 26.0-34.0 [facility] Comment on above: Performed By: #### L [id number] #### Newspaper Writer: LENORE ESCOBAR ([phone]) [facility] ([facility]) [address] [place] [address] MCV (RBC) [Entitic vol] 92.8 fL Normal 80.0-98.0 S [facility] Comment on above: Performed By: #### L [id number] #### Newspaper Writer: LENORE ESCOBAR ([phone]) [facility] ([facility]) [address] [place] [address] Platelet mean volume (Bld) [Entitic vol] 7.7 fL Normal 7.4-12.4 [facility] Comment on above: Performed By: #### L [id number] #### Newspaper Writer: LENORE ESCOBAR ([phone]) [facility] ([facility]) [address] [place] [address] PLATELETS (10*3/UL) IN BLOOD AUTOMATED COUNT 235 10*3/uL Normal 140-440 [facility] Comment on above: Performed By: #### L [id number] #### Newspaper Writer: LENORE ESCOBAR ([phone]) [facility] ([facility]) [address] [place] [address] RBC (Bld) [#/Vol] 4.71 10*6/uL Normal 4.40-5.90 [facility] Comment on above: Performed By: #### L [id number] #### Newspaper Writer: LENORE ESCOBAR ([phone]) [facility] ([facility]) [address] [place] [address] WBC (Bld) [#/Vol] 5.5 10*3/uL Normal 3.6-10.7 [facility] Comment on above: Performed By: #### L [id number] #### Newspaper Writer: LENORE ESCOBAR ([phone]) [facility] ([facility]) [address] [place] [address] PREPROCINSon 12-13-2022 PREPROCINS Medication List Accurate as [...] your scheduled surgery time. Please bring your [facility] Surgical folder and medication list with you day of surgery. We encourage you to write down any questions you may have for the surgeon, anesthesiologist, or other members of the surgical team and bring it with you the day of surgery. Please bring photo ID and insurance information. DOWN FILLER AND PARKING IN THE MAIN DECK ARE [...] THE SAME DAY DESK AND CHECK IN. [facility] 36on 12-12-2022 36 SURGERY: LEFT ILIOFEMORAL DVT THROMBECTOMY AND STENTING 1 DATE OF SURGERY: 12/25/2022 10:30 AM PRE TESTIN12/13/2022 10:00 AM AUTH #: [id number] CARDIAC CLEARANCE NOT NEEDED POST OP OR OV: 01/07/2023 2:45 PM MEDS TO HOLD: NONE PT STATES NOT TAKING FUROSEMIDE MEDS TO CONTINUE: XARELTO DO NOT STOP [facility] 36 Noted and thank you. [facility] 36 Patient is currently scheduled for: Left Iliofemoral Deep Vein Thrombosis Thrombectomy & Stenting on 11/2722 at 1:30 pm. Patient would like to speak with Dr. Arauz in regards to his case waiting until 12/21/22. He stated he does not understand why this is not being done sooner. Patient can be reached at [phone] [facility] No Panel Informationon 12-11 Occlusive subacute DVT [...] to bowel gas. Visualized segments appear patent. Vp Clinical Details A conroy scale, color Doppler imaging and spectral Doppler analysis ultrasound was performed. During the study longitudinal and transverse views were obtained. Pulsed wave doppler was performed. The exam was performed with the patient in the supine position. Overall the study quality was adequate. Study was technically difficult due to: bowel gas. CV CPACS Office Visiton 12-10-2022 Follow-up visit [id number] [place] Queen 1960 M Date Provider Department Center 12/10/2022 [id number] ARAUZ [facility] None Family History Adopted: Yes Problem Relation Age of Onset No Known Problems Father Cancer Mother Comments: lung Family Status - Relation Status Age at Father Mother Level of Service:59338 [place] OFFICE/OUTPATIENT ESTABLISHED MOD [facility] 30-39 MIN Reason for Visit and Comments: Follow-up [616388] - [facility] 12/07 ED follow up, possible LLE thromb[facility] sewer [facility] Progress Noteon 12-10-2022 Progress Note Chart reviewed of ED follow up Seen in [facility] ED on 12/07/2022 Reason: Deep vein thrombosis [...] 12/09/[address] Davonte SANDERSON Vascular Surgery. 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 [facility] ED Nursing Noteon 12-07-2022 ED Nursing Note Surgery resident at bedside. Lorena Castillo RN 12/07/22 1423 [facility] ED Nursing Note Vascular at bedside. Lorena Castillo RN 12/07/22 1333 [facility] ED Nursing Note Pt ambulated to restroom with steady and even gait. Lorena Castillo RN 12/07/22 1319 [facility] ED Nursing Note Report from GARY Becerril. Lorena Castillo RN 12/07/22 1311 [facility] ED Nursing Note Bed: 06 Expected date: Expected time: Means of arrival: Comments: Triage Munira Mcgregor RN 12/07/22 0952 [facility] ED Provider Noteon ED Provider Note Emergency [...] contact the dictating provider for clarification.) Yolanda Patel, DO [employer] Yolanda Patel DO 12/07/22 1809 [facility] ED Provider Note EMERGENCY DEPARTMENT ENCOUNTER Pt [...] and instructed to follow-up. Patient was in [place] this last week when the pain and swelling increased. He reported to the ED in [place] at which time he had an EKG and another ultrasound of his leg showing that the clots were still there. Patient arrived back to [place] last night and states that he spoke [...] tablet Rickey (more content not included)... Normal [facility] 36on 12-03-2022 36 I called pt to offer OV with Dr. Arauz today for extensive LLE DVT extending to iliac vein. Pt is in [place] and is in severe pain and has extreme swelling where his leg is twice the size. I told him to go to ED down there in [place] and he declined. He states he will go to the [facility] ED in [place] when he returns on Saturday. Normal [facility] 36 S: Patient spoke wit h [facility] nurse regarding acute deep vein thrombosis [...] tells this nurse I am at the coast in [place] and will not return to [place] until Saturday. Again, highly encouraged patient to seek evaluation in an emergency room in [place] per the physician's recommendations. Discussed blood clots [...] vein thrombosis, pulmonary embolism) Protocols used: Leg Vljz-KOTOS-IT [facility] No Panel Informationon 11-14 Acute extensive DVT [...] on 10/15/2022. No change from previous exam. Vp Clinical Details A conroy scale, color Doppler imaging, [...] pane l (Bld)Ordered By: Jose Samayoa on 08-22-2023 Basophils (Bld) [#/Vol] 0.1 10*3/uL 0.0 - 0.2 10*3/uL [facility] Basophils/100 WBC (Bld) 1.0 % 0.0 - 2.0 % [facility] Eosinophils (Bld) [#/Vol] 0.4 10*3/uL 0. 0 - 0.5 10*3/uL [facility] Eosinophils/100 WBC (Bld) 4.9 % 1.0 - 6.0 % [facility] Erythrocyte distribution width (RBC) [Ratio] 13.0 % 11.5 - 14.5 % [facility] Hematocrit (Bld) [Volume fraction] 39.0 % Low 40.0 - 52.0 % [facility] Hemoglobin (Bld) [Mass/Vol] 13.5 g/dL 13.0 - 18.0 g/dL [facility] Interpretation and review of laboratory results Abnormal [facility] th Lymphocytes (Bld) [#/Vol] 2.0 10*3/uL 1. 0 - 4.3 10*3/uL [facility] Lymphocytes/100 WBC (Bld) 24.5 % 20 .0 - 40.0 % [facility] MCH (RBC) [Entitic mass] 31.0 pg 26. 0 - 34.0 pg [facility] MCHC (RBC) [Mass/Vol] 34.6 % 32.0 - 36.0 % [facility] MCV (RBC) [Entitic vol] 89.6 fL 80.0 - 98.0 fL [facility] Monocytes (Bld) [#/Vol] 0.8 10*3/uL 0.0 - 0.8 10*3/uL [facility] Monocytes/100 WBC (Bld) 10.4 % High 2.0 - 10.0 % [facility] Neutrophils (Bld) [#/Vol] 4.7 10*3/uL 1. 8 - 7.0 10*3/uL [facility] Neutrophils/100 WBC (Bld) 59.2 % 40 .0 - 80.0 % [facility] Nucleated RBC/100 WBC (Bld) [Ratio] 0.0 % [facility] Platelet mean volume (Bld) [Entitic vol] 7.0 fL Low 7.4 - 12.4 fL [facility] Platelets (Bld) [#/Vol] 277 10*3/uL 140 - 440 10*3/uL [facility] RBC (Bld) [#/Vol] 4.36 10*6/uL Low 4.40 - 5.9 0 10*6/uL [facility] WBC (Bld) [#/Vol] 8.0 10*3/uL 3.6 - 10.7 10*3/uL [facility] Comprehensive metabolic 1998 panelon 10-16-2022 Albumin [Mass/Vol] 3.9 g/dL 3.5 - 5.0 g/dL [facility] ALP [Catalytic activity/Vol] 54 U/L 38 - 126 U/L [facility] ALT [Catalytic activity/Vol] 11 U/L 0 - 49 U/L [facility] Anion gap [Moles/Vol] 7 mmol/L 3 - 13 mmol/L [facility] AST [Catalytic activity/Vol] 20 U/L 15 - 46 U/L [facility] Bilirubin [Mass/Vol] 0.5 mg/dL 0.2 - 1 .3 mg/dL [facility] Calcium [Mass/Vol] 9.9 mg/dL 8.4 - 10. 4 mg/dL [facility] Chloride [Moles/Vol] 104 mmol/L 98 - 10 7 mmol/L [facility] CO2 [Moles/Vol] 24 mmol/L 22 - 30 mmol/L [facility] Creatinine [Mass/Vol] 1.03 mg/dL 0.66 - 1.25 mg/dL [facility] GFR/1.73 sq M.predicted MDRD (S/P/Bld) [Vol rate/Area] 82.6 mL/min/{1.73_m2} - PINF [facility] Comment on above: Calculation based on the Chronic Kidney Disease Epidemiology Collaboration (CKD-EPI) equation refit without adjustment for race Glucose [Mass/Vol] 95 mg/dL 70 - 100 mg/dL [facility] Interpretation and review of laboratory results Normal [facility] Potassium [Moles/Vol] 3.9 mmol/L 3.5 - 5.1 mmol/L [facility] Protein [Mass/Vol] 7.1 g/dL 6.3 - 8.2 g/dL [facility] Sodium [Moles/Vol] 135 mmol/L 135 - 145 mmol/L [facility] Urea nitrogen [Mass/Vol] 15 mg/dL 9 - 20 mg/dL [facility] CBC W Auto Differential pane l (Bld)Ordered By: Jaswant Mendoza on 10-15-2022 Basophils (Bld) [#/Vol] 0.1 10*3/uL 0.0 - 0.2 10*3/uL [facility] Basophils/100 WBC (Bld) 1.1 % 0.0 - 2.0 % [facility] Eosinophils (Bld) [#/Vol] 0.4 10*3/uL 0. 0 - 0.5 10*3/uL [facility] Eosinophils/100 WBC (Bld) 4.6 % 1.0 - 6.0 % [facility] Erythrocyte distribution width (RBC) [Ratio] 13.2 % 11.5 - 14.5 % [facility] Hematocrit (Bld) [Volume fraction] 38.8 % Low 40.0 - 52.0 % [facility] Hemoglobin (Bld) [Mass/Vol] 13.3 g/dL 13.0 - 18.0 g/dL [facility] Interpretation and review of laboratory results Abnormal [facility] th Lymphocytes (Bld) [#/Vol] 1.3 10*3/uL 1. 0 - 4.3 10*3/uL [facility] Lymphocytes/100 WBC (Bld) 14.7 % Low 20 .0 - 40.0 % [facility] MCH (RBC) [Entitic mass] 30.9 pg 26. 0 - 34.0 pg [facility] MCHC (RBC) [Mass/Vol] 34.4 % 32.0 - 36.0 % [facility] MCV (RBC) [Entitic vol] 89.9 fL 80.0 - 98.0 fL [facility] Monocytes (Bld) [#/Vol] 1.0 10*3/uL High 0.0 - 0.8 10*3/uL [facility] Monocytes/100 WBC (Bld) 11.0 % High 2.0 - 10.0 % [facility] Neutrophils (Bld) [#/Vol] 6.1 10*3/uL 1. 8 - 7.0 10*3/uL [facility] Neutrophils/100 WBC (Bld) 68.6 % 40 .0 - 80.0 % [facility] Nucleated RBC/100 WBC (Bld) [Ratio] 0.0 % [facility] Platelet mean volume (Bld) [Entitic vol] 6.9 fL Low 7.4 - 12.4 fL [facility] [employer] Platelets (Bld) [#/Vol] 272 10*3/uL 140 - 440 10*3/uL [facility] [employer] RBC (Bld) [#/Vol] 4.32 10*6/uL Low 4.40 - 5.9 0 10*6/uL [facility] [employer] WBC (Bld) [#/Vol] 8.8 10*3/uL 3.6 - 10.7 10*3/uL [facility] CT Head WO contraston [address] examination of the brain. Report Dictated on Electronically Signed By: Noe Medina DO Electronically Signed Date/Time: 10/15/2022 2:57 PM EDT [facility] [employer] Patient Name: CORRIE QUEEN : 1960 [...] are unremarkable. The paranasal sinuses are clear. [facility] [employer] Noe Medina DO - 10/15/2022 Patient [...] Electronically Signed Date/Time: 10/15/2022 2:57 PM EDT [facility] Radiology Study observation (narrative) [facility] alyssa CT Head WO contrastOrdered B y: Noe Medina on 10-15-2022 [facility] Work Phone: Comprehensive metabolic 1998 panelon 10-15-2022 Albumin [Mass/Vol] 3.8 g/dL 3.5 - 5.0 g/dL [facility] ALP [Catalytic activity/Vol] 54 U/L 38 - 126 U/L [facility] ALT [Catalytic activity/Vol] 11 U/L 0 - 49 U/L [facility] Anion gap [Moles/Vol] 8 mmol/L 3 - 13 mmol/L [facility] AST [Catalytic activity/Vol] 19 U/L 15 - 46 U/L [facility] Bilirubin [Mass/Vol] 0.5 mg/dL 0.2 - 1 .3 mg/dL [facility] Calcium [Mass/Vol] 9.8 mg/dL 8.4 - 10. 4 mg/dL [facility] Chloride [Moles/Vol] 104 mmol/L 98 - 10 7 mmol/L [facility] CO2 [Moles/Vol] 26 mmol/L 22 - 30 mmol/L [facility] Creatinine [Mass/Vol] 1.06 mg/dL 0.66 - 1.25 mg/dL [facility] GFR/1.73 sq M.predicted MDRD (S/P/Bld) [Vol rate/Area] 79.8 mL/min/{1.73_m2} - PINF [facility] Comment on above: Calculation based on the Chronic Kidney Disease Epidemiology Collaboration (CKD-EPI) equation refit without adjustment for race Glucose [Mass/Vol] 105 mg/dL High 70 - 100 mg/dL [facility] Interpretation and review of laboratory results Abnormal [facility] Potassium [Moles/Vol] 4.1 mmol/L 3.5 - 5.1 mmol/L [facility] Protein [Mass/Vol] 7.1 g/dL 6.3 - 8.2 g/dL [facility] Sodium [Moles/Vol] 137 mmol/L 135 - 145 mmol/L [facility] Urea nitrogen [Mass/Vol] 16 mg/dL 9 - 20 mg/dL [facility] Laboratory - Chemistry and C hemistry - challengeon 10-15-2022 Glucose [Mass/Vol] 98 mg/dL 70 - 100 mg/dL [facility] No Panel Informationon 10-15 Interpretation and review of laboratory results Normal [facility] Performed by: [facility], [address] [place] [address] CLIA ID: [id number] [facility] Acute extensive DVT in the left lower [...] right common femoral vein is normally compressible. Vp Clinical Details A conroy scale, color Doppler imaging [...] [#/Vol] 0.0 10*3/uL 0.0 - 0.2 10*3/uL [facility] Basophils/100 WBC (Bld) 0.6 % 0.0 - 2.0 % [facility] Eosinophils (Bld) [#/Vol] 0.6 10*3/uL High 0. 0 - 0.5 10*3/uL [facility] Eosinophils/100 WBC (Bld) 7.1 % High 1.0 - 6.0 % [facility] Erythrocyte distribution width (RBC) [Ratio] 13.4 % 11.5 - 14.5 % [facility] Hematocrit (Bld) [Volume fraction] 37.0 % Low 40.0 - 52.0 % [facility] Hemoglobin (Bld) [Mass/Vol] 12.7 g/dL Low 13.0 - 18.0 g/dL [facility] Interpretation and review of laboratory results Abnormal [facility] th Lymphocytes (Bld) [#/Vol] 2.1 10*3/uL 1. 0 - 4.3 10*3/uL [facility] Lymphocytes/100 WBC (Bld) 26.2 % 20 .0 - 40.0 % [facility] MCH (RBC) [Entitic mass] 31.2 pg 26. 0 - 34.0 pg [facility] MCHC (RBC) [Mass/Vol] 34.3 % 32.0 - 36.0 % [facility] MCV (RBC) [Entitic vol] 90.9 fL 80.0 - 98.0 fL [facility] Monocytes (Bld) [#/Vol] 0.9 10*3/uL High 0.0 - 0.8 10*3/uL [facility] Monocytes/100 WBC (Bld) 11.1 % High 2.0 - 10.0 % [facility] Neutrophils (Bld) [#/Vol] 4.5 10*3/uL 1. 8 - 7.0 10*3/uL [facility] Neutrophils/100 WBC (Bld) 55.0 % 40 .0 - 80.0 % [facility] Nucleated RBC/100 WBC (Bld) [Ratio] 0.0 % [facility] Platelet mean volume (Bld) [Entitic vol] 7.8 fL 7.4 - 12.4 fL [facility] Platelets (Bld) [#/Vol] 255 10*3/uL 140 - 440 10*3/uL [facility] RBC (Bld) [#/Vol] 4.08 10*6/uL Low 4.40 - 5.9 0 10*6/uL [facility] WBC (Bld) [#/Vol] 8.2 10*3/uL 3.6 - 10.7 10*3/uL [facility] Comprehensive metabolic 1998 panelon 10-14-2022 Albumin [Mass/Vol] 3.7 g/dL 3.5 - 5.0 g/dL [facility] ALP [Catalytic activity/Vol] 53 U/L 38 - 126 U/L [facility] ALT [Catalytic activity/Vol] 11 U/L 0 - 49 U/L [facility] Anion gap [Moles/Vol] 8 mmol/L 3 - 13 mmol/L [facility] AST [Catalytic activity/Vol] 18 U/L 15 - 46 U/L [facility] Bilirubin [Mass/Vol] 0.4 mg/dL 0.2 - 1 .3 mg/dL [facility] Calcium [Mass/Vol] 9.9 mg/dL 8.4 - 10. 4 mg/dL [facility] Chloride [Moles/Vol] 105 mmol/L 98 - 10 7 mmol/L [facility] CO2 [Moles/Vol] 26 mmol/L 22 - 30 mmol/L [facility] Creatinine [Mass/Vol] 1.15 mg/dL 0.66 - 1.25 mg/dL [facility] GFR/1.73 sq M.predicted MDRD (S/P/Bld) [Vol rate/Area] 72.4 mL/min/{1.73_m2} - PINF [facility] Comment on above: Calculation based on the Chronic Kidney Disease Epidemiology Collaboration (CKD-EPI) equation refit without adjustment for race Glucose [Mass/Vol] 90 mg/dL 70 - 100 mg/dL [facility] Interpretation and review of laboratory results Normal [facility] Potassium [Moles/Vol] 4.4 mmol/L 3.5 - 5.1 mmol/L [facility] Protein [Mass/Vol] 6.4 g/dL 6.3 - 8.2 g/dL [facility] Sodium [Moles/Vol] 138 mmol/L 135 - 145 mmol/L [facility] Urea nitrogen [Mass/Vol] 17 mg/dL 9 - 20 mg/dL [facility] Laboratory - Chemistry and C hemistry - challengeon 10-14-2022 Parathyrin.intact [Mass/Vol] 39.0 pg/mL 7.5 - 53.5 pg/mL [facility] Parathyrin.intact [Mass/Vol] on 10-14-2022 Interpretation and review of laboratory results Normal [facility] Basic metabolic 1998 panelon 10-12-2022 Anion gap [Moles/Vol] 12 mmol/L 3 - 13 mmol/L [facility] Calcium [Mass/Vol] 11.1 mg/dL High 8.4 - 10. 4 mg/dL [facility] Chloride [Moles/Vol] 104 mmol/L 98 - 10 7 mmol/L [facility] CO2 [Moles/Vol] 21 mmol/L Low 22 - 30 mmol/L [facility] Creatinine [Mass/Vol] 1.45 mg/dL High 0.66 - 1.25 mg/dL [facility] GFR/1.73 sq M.predicted MDRD (S/P/Bld) [Vol rate/Area] 54.8 mL/min/{1.73_m2} Low - PINF [facility] Comment on above: Calculation based on the Chronic Kidney Disease Epidemiology Collaboration (CKD-EPI) equation refit without adjustment for race Glucose [Mass/Vol] 121 mg/dL High 70 - 100 mg/dL [facility] Interpretation and review of laboratory results Abnormal [facility] Potassium [Moles/Vol] 4.8 mmol/L 3.5 - 5.1 mmol/L [facility] Sodium [Moles/Vol] 137 mmol/L 135 - 145 mmol/L [facility] Urea nitrogen [Mass/Vol] 18 mg/dL 9 - 20 mg/dL [facility] CBC W Auto Differential pane l (Bld)Ordered By: Won Valencia on 10-12-2022 Basophils (Bld) [#/Vol] 0.1 10*3/uL 0.0 - 0.2 10*3/uL [facility] Basophils/100 WBC (Bld) 0.7 % 0.0 - 2.0 % [facility] Eosinophils (Bld) [#/Vol] 0.3 10*3/uL 0. 0 - 0.5 10*3/uL [facility] Eosinophils/100 WBC (Bld) 3.0 % 1.0 - 6.0 % [facility] Erythrocyte distribution width (RBC) [Ratio] 13.0 % 11.5 - 14.5 % [facility] Hematocrit (Bld) [Volume fraction] 43.0 % 40.0 - 52.0 % [facility] Hemoglobin (Bld) [Mass/Vol] 14.6 g/dL 13.0 - 18.0 g/dL [facility] [employer] Immature granulocytes (Bld) [#/Vol] 0.1 10*3/uL High NINF - 0.0 10*3/uL [facility] [employer] Immature granulocytes/100 WBC (Bld) 0.6 % High NINF - 0.0 % [facility] Interpretation and review of laboratory results Abnormal [facility] Lymphocytes (Bld) [#/Vol] 1.6 10*3/uL 1. 0 - 4.3 10*3/uL [facility] [employer] Lymphocytes/100 WBC (Bld) 16.4 % Low 20 .0 - 40.0 % [facility] MCH (RBC) [Entitic mass] 31.0 pg 26. 0 - 34.0 pg [facility] MCHC (RBC) [Mass/Vol] 34.0 % 32.0 - 36.0 % [facility] MCV (RBC) [Entitic vol] 91.3 fL 80.0 - 98.0 fL [facility] Monocytes (Bld) [#/Vol] 0.9 10*3/uL High 0.0 - 0.8 10*3/uL [facility] Monocytes/100 WBC (Bld) 9.3 % 2.0 - 10.0 % [facility] Neutrophils (Bld) [#/Vol] 6.9 10*3/uL 1. 8 - 7.0 10*3/uL [facility] Neutrophils/100 WBC (Bld) 70.0 % 40 .0 - 80.0 % [facility] Platelet mean volume (Bld) [Entitic vol] 9.0 fL 7.4 - 12.4 fL [facility] Comment on above: MPV is a calculated measurement using platelet volume ratio Platelets (Bld) [#/Vol] 273 10*3/uL 140 - 440 10*3/uL [facility] RBC (Bld) [#/Vol] 4.71 10*6/uL 4.40 - 5.9 0 10*6/uL [facility] WBC (Bld) [#/Vol] 9.9 10*3/uL 3.6 - 10.7 10*3/uL [facility] Laboratory - Chemistry and C hemistry - challengeon 10-12-2022 Lactate [Moles/Vol] 1.2 mmol/L 0.7 - 2. 0 mmol/L [facility] CK [Catalytic activity/Vol] 54 U/L 30 - 170 U/L [facility] No Panel Informationon 10-12 Positive for DVT throughout the left lower extremity. These findings were discussed with physician/provider PACHECO NEGRON by Secure Chat on 10/12/2022 at 3:16 PM EDT. Report Dictated on Electronically Signed By: Chan Woodard MD Electronically Signed Date/Time: 10/12/2022 3:20 PM EDT [facility] Patient Name: CORRIE QUEEN : 1960 [...] right common femoral vein is normally compressible. [facility] Chan Woodard M D - 10/12/2022 [...] Electronically Signed Date/Time: 10/12/2022 3:20 PM EDT [facility] Interpretation and review of laboratory results Normal [facility] XR Tibia and Fibula - left 2 Viewson 10-12-2022 No acute osseous abnormality. Report Dictated on Electronically Signed By: Jesús Danielson MD Electronically Signed Date/Time: 10/12/2022 3:24 PM EDT [facility] Patient Name: CORRIE QUEEN : [...] body or soft tissue gas. Vascular calcifications. [facility] Jesús Danielson MD - 10/12/2022 Patient [...] Electronically Signed Date/Time: 10/12/2022 3:24 PM EDT [facility] Radiology Study observation (narrative) [facility] alth XR Tibia and Fibula - left 2 ViewsOrdered By: Jesús Danielson on 10-12-2022 [facility] [employer] Work Phone: Urinalysis macro (dipstick) panel (U)on 09-13-2022 Bilirubin, [facility]A Negative [facility] Trace [facility] Glucose, UA Negative [facility] Interpretation and review of laboratory results Abnormal [facility] Ketones, UA Negative [facility] Leukocytes, UA Moderate [facility] Nitrite, UA Negative [facility] pH, UA 6.0 [facility] Protein, UA Negative [facility] Spec Grav, UA 1.030 [facility] Urobilinogen, UA 0.2 [facility] Bacteria identified Cx Nom ( U)on 08-20-2022 Interpretation and review of laboratory results Abnormal [facility] Urine culture (clean catch)o n 08-20-2022 Bacteria identified Cx Nom (U) SEE NOTE Abnormal [facility] Comment on above: CULTURE, URINE, ROUTINE Micro Number: [id number] Test Status: Final Specimen Source: Urine, clean [...] 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 Urinalysis macro (dipstick) panel (U)Ordered By: Nelli Lama on 08-17-2022 Bilirubin, UA Negative [facility] h Blood, UA Moderate [facility] Comment on above: non-hemolyzed Clarity (U) Slightly Cloudy Abnormal Clear [facility] alth Color (U) Light Yellow Lt. Yellow [facility] Glucose, UA Negative [facility] Interpretation and review of laboratory results Abnormal [facility] Ketones, UA Trace [facility] Leukocytes, UA Moderate [facility] Nitrite, UA Negative [facility] pH, UA 6.0 [facility] Protein, UA Trace [facility] Spec Grav, UA 1.015 [facility] Urobilinogen, UA 0.2 [facility] Urinalysis macro (dipstick) panel (U)on 05-17-2022 Bilirubin, UA Negative [facility] Blood, UA Trace [facility] Glucose, UA Negative [facility] Interpretation and review of laboratory results Abnormal [facility] Ketones, UA Negative [facility] Leukocytes, UA Trace [facility] Nitrite, UA Negative [facility] pH, UA 6.5 [facility] Protein, UA Negative [facility] Spec Grav, UA 1.020 [facility] Urobilinogen, UA 0.2 [facility] Urinalysis macro (dipstick) panel (U)on 03-06-2022 Bilirubin, UA Negative [facility] Blood, UA Negative [facility] Glucose, UA Negative [facility] Ketones, UA Negative [facility] Leukocytes, UA Negative [facility] Nitrite, UA Negative [facility] pH, UA 5.0 [facility] Protein, UA Negative [facility] Spec Grav, UA 1.020 [facility] Urobilinogen, UA 0.2 [facility] Basic Metabolic Panelon 10 Calcium [Mass/Vol] 9.5 mg/dL Normal 8.4-10.4 [facility] Comment on above: Performed By: #### H EMDF, TSH5, LIPD2, CMP3M #### [facility] [address] [place] [address] Anion gap [Moles/Vol] 7 mmol/L Normal 3-13 [facility] Comment on above: Performed By: #### H EMDF, TSH5, LIPD2, CMP3M #### [facility] [address] [place] [address] CO2 [Moles/Vol] 22 mmol/L Normal 22-30 [facility] Comment on above: Performed By: #### H EMDF, TSH5, LIPD2, CMP3M #### [facility] [address] [place] [address] Creatinine [Mass/Vol] 1.01 mg/dL Normal 0.52-1.25 [facility] Comment on above: Performed By: #### H EMDF, TSH5, LIPD2, CMP3M #### [facility] [address] [place] [address] GFR/1.73 sq M.predicted among blacks MDRD (S/P/Bld) [Vol rate/Area] mL/min/{1.73_m2} Normal >60 [facility] Comment on above: Performed By: #### H EMDF, TSH5, LIPD2, CMP3M #### [facility] [address] [place] [address] GFR/1.73 sq M.predicted among non-blacks MDRD (S/P/Bld) [Vol rate/Area] 80.3 mL/min/{1.73_m2} Normal >60 [facility] Comment on above: Result Comment: KDIG O [...] #### H EMDF, TSH5, LIPD2, CMP3M #### [facility] [address] [place] [address] Glucose [Mass/Vol] 101 mg/dL High 70-100 [facility] Comment on above: Performed By: #### H EMDF, TSH5, LIPD2, CMP3M #### [facility] [address] [place] [address] Urea nitrogen [Mass/Vol] 21 mg/dL High 7-17 [facility] Comment on above: Performed By: #### H EMDF, TSH5, LIPD2, CMP3M #### [facility] [address] [place] [address] Chloride [Moles/Vol] 107 mmol/L Normal 98-107 [facility] Comment on above: Performed By: #### H EMDF, TSH5, LIPD2, CMP3M #### [facility] [address] [place] [address] Potassium [Moles/Vol] 3.9 mmol/L Normal 3.5-5.1 [facility] Comment on above: Performed By: #### H EMDF, TSH5, LIPD2, CMP3M #### [facility] [address] [place] [address] Sodium [Moles/Vol] 135 mmol/L Normal 135-145 [facility] Comment on above: Performed By: #### H EMDF, TSH5, LIPD2, CMP3M #### [facility] [address] [place] [address] Basic Metabolic Panel w/ Ref rolanda to MGon 12-06-2021 Anion gap [Moles/Vol] 7 mmol/L 3 - 13 mmol/L [facility] Work Phone: Calcium [Mass/Vol] 9.5 mg/dL 8.4 - 10. 4 mg/dL [facility] Work Phone: Chloride [Moles/Vol] 107 mmol/L 98 - 10 7 mmol/L [facility] Work Phone: CO2 [Moles/Vol] 22 mmol/L 22 - 30 mmol/L [facility] Work Phone: Creatinine [Mass/Vol] 1.01 mg/dL 0.52 - 1.25 mg/dL [facility] Work Phone: eGFR mL/min 60 - P INF mL/min [facility] Work Phone: EGFR IF NonAfrican Guamanian 80.3 mL/min 60 - PINF mL/min [facility] Work Phone: Comment on above: KDIGO guidelines [...] 101 mg/dL High 70 - 100 mg/dL [employer] Work Phone: [phone] Interpretation and review of laboratory results Abnormal [facility] Work Phone: Potassium [Moles/Vol] 3.9 mmol/L 3.5 - 5.1 mmol/L [facility] Work Phone: Sodium [Moles/Vol] 135 mmol/L 135 - 145 mmol/L [facility] Work Phone: Urea nitrogen (BldV) [Mass/Vol] 21 mg/dL High 7 - 17 mg/dL [facility] Work Phone: Test Performed by [facility] [employer] [facility], [address] [place] [id number] [facility] Work Phone: CBC with Auto Differentialon 12-06-2021 Absolute Baso # 0.1 10*3/uL 0 - 0.2 10*3/uL [facility] Work Phone: Absolute Neut # 4.6 10*3/uL 1.8 - 7 10*3/uL [employer] Work Phone: Basophils/100 WBC (Bld) 0.9 % 0 - 2 % [facility] Work Phone: Eosinophils (Bld) [#/Vol] 2.0 10*3/uL High 0 - 0.5 10*3/uL [employer] Work Phone: Eosinophils/100 WBC (Bld) 19.5 % High 1 - 6 % [facility] Work Phone: [phone] Granulocytes/100 WBC (Bld) 44.0 % 40 - 80 % [facility] Work Phone: Hematocrit (Bld) [Volume fraction] 47.7 % 40 - 52 % [facility] Work Phone: Hemoglobin (Bld) [Mass/Vol] 16.3 g/dL 13 - 18 g/dL [facility] Work Phone: Interpretation and review of laboratory results Abnormal [facility] Work Phone: Lymphocytes (Bld) [#/Vol] 2.9 10*3/uL 1 - 4.3 10*3/uL [facility] Work Phone: Lymphocytes/100 WBC (Bld) 28.1 % 20 - 40 % [facility] Work Phone: MCH (RBC) [Entitic mass] 30.2 pg 26 - 34 pg [facility] Work Phone: MCHC (RBC) [Mass/Vol] 34.1 % 32 - 36 % [facility] Work Phone: MCV (RBC) [Entitic vol] 88.4 fL 80 - 98 fL [facility] Work Phone: Monocytes (Bld) [#/Vol] 0.8 10*3/uL 0 - 0.8 10*3/uL [facility] Work Phone: Monocytes/100 WBC (Bld) 7.5 % 2 - 10 % [facility] Work Phone: Platelet distribution width (Bld) [Ratio] 13.6 % 11.5 - 14.5 % [facility] Work Phone: Platelet mean volume (Bld) [Entitic vol] 7.0 fL Low 7.4 - 12.4 fL [facility] Work Phone: Comment on above: MPV is a calculated measurement using platelet volume ratio. Platelets (Bld) [#/Vol] 275 10*3/uL 140 - 440 10*3/uL [facility] Work Phone: RBC (Bld) [#/Vol] 5.39 10*6/uL 4.4 - 5.9 10*6/uL [facility] Work Phone: WBC (Bld) [#/Vol] 10.5 10*3/uL 3.6 - 10.7 10*3/uL [facility] Work Phone: Test Performed by [facility], [address] [place], [place] [address] [facility] Work Phone: CULTURE BLOODon 12-06-2021 Microscopic examination of blood, culture CULTURE BLOOD --> Status: P No growth at 1 day. No growth at 2 days. No growth at 3 days. No growth at 4 days. No growth at 2 days. No growth at 3 days. No growth at 4 days. Normal [facility] Comment on above: Performed By: #### C UA2 #### [facility] [address] [place] [address] CULTURE BLOOD (Two)on 2021 Microscopic examination of blood, culture CULTURE BLOOD (Two) --> Status: P No growth at 1 day. No growth at 2 days. No growth at 3 days. No growth at 4 days. No growth at 2 days. No growth at 3 days. No growth at 4 days. Normal [facility] Comment on above: Performed By: #### C UA2 #### [facility] [address] [place] [address] Hemogram w/ Autodiffon 12-06 Abs Baso Cnt 0.1 10*3/uL Normal 0.0-0.2 [facility] Comment on above: Performed By: #### H EMDF, TSH5, LIPD2, CMP3M #### [facility] [address] [place] [address] Abs Neutrophile Cnt 4.6 10*3/uL Normal 1.8-7.0 [facility] Comment on above: Performed By: #### H EMDF, TSH5, LIPD2, CMP3M #### [facility] [address] [place] [address] Basophils/100 WBC (Bld) 0.9 % Normal 0.0-2.0 [facility] Comment on above: Performed By: #### H EMDF, TSH5, LIPD2, CMP3M #### [facility] [address] [place] [address] Eosinophils (Bld) [#/Vol] 2.0 10*3/uL High 0.0-0.5 [facility] Comment on above: Performed By: #### H EMDF, TSH5, LIPD2, CMP3M #### [facility] [address] [place] [address] Eosinophils/100 WBC (Bld) 19.5 % High 1.0-6.0 [facility] Comment on above: Performed By: #### H EMDF, TSH5, LIPD2, CMP3M #### [facility] [address] [place] [address] Erythrocyte distribution width (RBC) [Ratio] 13.6 % Normal 11.5-14.5 [facility] Comment on above: Performed By: #### H EMDF, TSH5, LIPD2, CMP3M #### [facility] [address] [place] [address] Granulocytes/100 WBC (Bld) 44.0 % Normal 40.0-80.0 [facility] Comment on above: Performed By: #### H EMDF, TSH5, LIPD2, CMP3M #### [facility] [address] [place] [address] Hematocrit (Bld) [Volume fraction] 47.7 % Normal 40.0-52.0 [facility] Comment on above: Performed By: #### H EMDF, TSH5, LIPD2, CMP3M #### [facility] [address] [place] [address] Hemoglobin (Bld) [Mass/Vol] 16.3 g/dL Normal 13.0-18.0 [facility] Comment on above: Performed By: #### H EMDF, TSH5, LIPD2, CMP3M #### [facility] [address] [place] [address] Lymphocytes (Bld) [#/Vol] 2.9 10*3/uL Normal 1.0-4.3 [facility] Comment on above: Performed By: #### H EMDF, TSH5, LIPD2, CMP3M #### [facility] [address] [place] [address] Lymphocytes/100 WBC (Bld) 28.1 % Normal 20.0-40.0 [facility] Comment on above: Performed By: #### H EMDF, TSH5, LIPD2, CMP3M #### [facility] [address] [place] [address] MCH (RBC) [Entitic mass] 30.2 pg Normal 26.0-34.0 [facility] Comment on above: Performed By: #### H EMDF, TSH5, LIPD2, CMP3M #### [facility] [address] [place] [address] MCHC 34.1 % Normal 32.0-36.0 [facility] Comment on above: Performed By: #### H EMDF, TSH5, LIPD2, CMP3M #### [facility] [address] [place] [address] MCV (RBC) [Entitic vol] 88.4 fL Normal 80.0-98.0 [facility] Comment on above: Performed By: #### H EMDF, TSH5, LIPD2, CMP3M #### [facility] [address] [place] [address] Monocytes (Bld) [#/Vol] 0.8 10*3/uL Normal 0.0-0.8 [facility] Comment on above: Performed By: #### H EMDF, TSH5, LIPD2, CMP3M #### [facility] [address] [place] [address] Monocytes/100 WBC (Bld) 7.5 % Normal 2.0-10.0 [facility] Comment on above: Performed By: #### H EMDF, TSH5, LIPD2, CMP3M #### [facility] [address] [place] [address] Platelet mean volume (Bld) [Entitic vol] 7.0 fL Low 7.4-12.4 [facility] Comment on above: Result Comment: MPV is a calculated measurement using platelet volume ratio. Performed By: #### H EMDF, TSH5, LIPD2, CMP3M #### [facility] [address] [place] [address] Platelets (Bld) [#/Vol] 275 10*3/uL Normal 140-440 [facility] Comment on above: Performed By: #### H EMDF, TSH5, LIPD2, CMP3M #### [facility] [address] [place] [address] RBC (Bld) [#/Vol] 5.39 10*6/uL Normal 4.40-5.90 [facility] Comment on above: Performed By: #### H EMDF, TSH5, LIPD2, CMP3M #### [facility] [address] [place] [address] WBC (Bld) [#/Vol] 10.5 10*3/uL Normal 3.6-10.7 [facility] Comment on above: Performed By: #### H EMDF, TSH5, LIPD2, CMP3M #### [facility] [address] [place] [address] Basic Metabolic Panelon 10-1 Anion gap [Moles/Vol] 6 mmol/L Normal 3-13 [facility] Comment on above: Performed By: #### M DIFF, HEMDF, BMP3M #### [facility] [address] [place] [address] Calcium [Mass/Vol] 10.2 mg/dL Normal 8.4-10.4 [facility] Comment on above: Performed By: #### M DIFF, HEMDF, BMP3M #### [facility] [address] [place] [address] CO2 [Moles/Vol] 25 mmol/L Normal 22-30 [facility] Comment on above: Performed By: #### M DIFF, HEMDF, BMP3M #### [facility] [address] [place] [address] Glucose [Mass/Vol] 96 mg/dL Normal 70-100 [facility] Comment on above: Performed By: #### M DIFF, HEMDF, BMP3M #### [facility] [address] [place] [address] Urea nitrogen [Mass/Vol] 21 mg/dL High 7-17 [facility] Comment on above: Performed By: #### M DIFF, HEMDF, BMP3M #### [facility] [address] [place] [address] Creatinine [Mass/Vol] 1.26 mg/dL High 0.52-1.25 [facility] Comment on above: Performed By: #### M DIFF, HEMDF, BMP3M #### [facility] [address] [place] [address] GFR/1.73 sq M.predicted among blacks MDRD (S/P/Bld) [Vol rate/Area] 71.3 mL/min/{1.73_m2} Normal >60 [facility] Comment on above: Performed By: #### M DIFF, HEMDF, BMP3M #### [facility] [address] [place] [address] GFR/1.73 sq M.predicted among non-blacks MDRD (S/P/Bld) [Vol rate/Area] 61.5 mL/min/{1.73_m2} Normal >60 [facility] Comment on above: Result Comment: KDIG O [...] By: #### M DIFF, HEMDF, BMP3M #### [facility] [address] [place] [address] Potassium [Moles/Vol] 4.3 mmol/L Normal 3.5-5.[address] [facility] Comment on above: Performed By: #### M DIFF, HEMDF, BMP3M #### [facility] [address] [place] [address] Chloride [Moles/Vol] 105 mmol/L Normal 98-107 [facility] Comment on above: Performed By: #### M DIFF, HEMDF, BMP3M #### [facility] [address] [place] [address] Sodium [Moles/Vol] 135 mmol/L Normal 135-145 [facility] Comment on above: Performed By: #### M DIFF, HEMDF, BMP3M #### [facility] [address] [place] [address] Basic Metabolic Panel w/ Ref rolanda to MGon 12-05-2021 Anion gap [Moles/Vol] 6 mmol/L 3 - 13 mmol/L [facility] Work Phone: Calcium [Mass/Vol] 10.2 mg/dL 8.4 - 10. 4 mg/dL [facility] Work Phone: Chloride [Moles/Vol] 105 mmol/L 98 - 10 7 mmol/L [facility] Work Phone: CO2 [Moles/Vol] 25 mmol/L 22 - 30 mmol/L [facility] Work Phone: Creatinine [Mass/Vol] 1.26 mg/dL High 0.52 - 1.25 mg/dL [facility] Work Phone: EGFR IF NonAfrican [place] 61.5 mL/min 60 - PINF mL/min [facility] Work Phone: Comment on above: KDIGO guidelines [...] rate/Area] 71.3 mL/min/{1.73_m2} 60 - PINF mL/min [facility] Work Phone: Glucose [Mass/Vol] 96 mg/dL 70 - 100 mg/dL [facility] Work Phone: Interpretation and review of laboratory results Abnormal [facility] Work Phone: Potassium [Moles/Vol] 4.3 mmol/L 3.5 - 5.1 mmol/L [facility] Work Phone: Sodium [Moles/Vol] 135 mmol/L 135 - 145 mmol/L [facility] Work Phone: Urea nitrogen (BldV) [Mass/Vol] 21 mg/dL High 7 - 17 mg/dL [facility] Work Phone: Test Performed by [facility], [address] [place] [id number] [place] [address] LAB [facility] Work Phone: CBC with Auto Differentialon 12-05-2021 Hematocrit (Bld) [Volume fraction] 43.8 % 40 - 52 % [facility] Work Phone: Hemoglobin (Bld) [Mass/Vol] 15.1 g/dL 13 - 18 g/dL [facility] Work Phone: Interpretation and review of laboratory results Abnormal [facility] Work Phone: MCH (RBC) [Entitic mass] 30.7 pg 26 - 34 pg [facility] Work Phone: MCHC (RBC) [Mass/Vol] 34.4 % 32 - 36 % [facility] Work Phone: MCV (RBC) [Entitic vol] 89.1 fL 80 - 98 fL [facility] Work Phone: [phone] Platelet distribution width (Bld) [Ratio] 13.7 % 11.5 - 14.5 % [employer] Work Phone: [phone] Platelet mean volume (Bld) [Entitic vol] 6.9 fL Low 7.4 - 12.4 fL [employer] Work Phone: [phone] Comment on above: MPV is a calculated measurement using platelet volume ratio. Platelets (Bld) [#/Vol] 265 10*3/uL 140 - 440 10*3/uL [employer] Work Phone: 1 RBC (Bld) [#/Vol] 4.91 10*6/uL 4.4 - 5.9 10*6/uL [employer] Work Phone: 1 WBC (Bld) [#/Vol] 10.4 10*3/uL 3.6 - 10.7 10*3/uL [employer] Work Phone: [phone] Performed by [facility], [address] [place], [place] [id number] [place] [address] [facility] Work Phone: [phone] Hemogram w/ Autodiffon 12-05 Erythrocyte distribution width (RBC) [Ratio] 13.7 % Normal 11.5-14.5 [facility] Comment on above: Performed By: #### M DIFF, HEMDF, BMP3M #### [facility] [address] [place] [address] Hematocrit (Bld) [Volume fraction] 43.8 % Normal 40.0-52.0 [facility] Comment on above: Performed By: #### M DIFF, HEMDF, BMP3M #### [facility] [address] [place] [address] Hemoglobin (Bld) [Mass/Vol] 15.1 g/dL Normal 13.0-18.0 [facility] Comment on above: Performed By: #### M DIFF, HEMDF, BMP3M #### [facility] [address] [place] [address] MCH (RBC) [Entitic mass] 30.7 pg Normal 26.0-34.0 [facility] Comment on above: Performed By: #### M DIFF, HEMDF, BMP3M #### [facility] [address] [place] [address] MCHC 34.4 % Normal 32.0-36.0 [facility] Comment on above: Performed By: #### M DIFF, HEMDF, BMP3M #### [facility] [address] [place] [address] MCV (RBC) [Entitic vol] 89.1 fL Normal 80.0-98.0 S [facility] Comment on above: Performed By: #### M DIFF, HEMDF, BMP3M #### [facility] [address] [place] [address] Platelet mean volume (Bld) [Entitic vol] 6.9 fL Low 7.4-12.4 [facility] Comment on above: Result Comment: MPV is a calculated measurement using platelet volume ratio. Performed By: #### M DIFF, HEMDF, BMP3M #### [facility] [address] [place] [address] Platelets (Bld) [#/Vol] 265 10*3/uL Normal 140-440 [facility] Comment on above: Performed By: #### M DIFF, HEMDF, BMP3M #### [facility] [address] [place] [address] RBC (Bld) [#/Vol] 4.91 10*6/uL Normal 4.40-5.90 [facility] Comment on above: Performed By: #### M DIFF, HEMDF, BMP3M #### [facility] [address] [place] [address] WBC (Bld) [#/Vol] 10.4 10*3/uL Normal 3.6-10.7 [facility] Comment on above: Performed By: #### M DIFF, HEMDF, BMP3M #### [facility] [address] [place] [address] Manual Diffon 12-05-2021 Abs Eosin Cnt 1.9 10*3/uL High 0.0-0.5 [facility] Comment on above: Performed By: #### C UA2 #### [facility] [address] [place] [address] Abs Lymph Cnt 2.4 10*3/uL Normal 1.1-4.5 [facility] Comment on above: Performed By: #### C UA2 #### [facility] [address] [place] [address] Abs Monocyte Cnt 0.6 10*3/uL Normal 0.2-1.1 [facility] Comment on above: Performed By: #### C UA2 #### [facility] [address] [place] [address] Abs Neutrophile Cnt 5.4 10*3/uL Normal 2.2-8.2 [facility] Comment on above: Performed By: #### C UA2 #### [facility] [address] [place] [address] Anisocytosis Slight Normal [facility] Comment on above: Performed By: #### C UA2 #### [facility] [address] [place] [address] Eosinophils 18 % High 1-6 [facility] Comment on above: Performed By: #### C UA2 #### [facility] [address] [place] [address] Lymphocytes 23 % Normal 20-40 [facility] Comment on above: Performed By: #### C UA2 #### [facility] [address] [place] [address] Metamyelocytes 1 % Abnormal <1 [facility] Comment on above: Performed By: #### C UA2 #### [facility] [address] [place] [address] Monocytes 6 % Normal 2-10 [facility] Comment on above: Performed By: #### C UA2 #### [facility] [address] [place] [address] Ovalocytes Slight Normal [facility] Comment on above: Performed By: #### C UA2 #### [facility] [address] [place] [address] RBC Morphology ABNORMAL Normal [facility] Comment on above: Performed By: #### C UA2 #### [facility] [address] [place] [address] Seg Neutrophils 52 % Normal 40-80 [facility] Comment on above: Performed By: #### C UA2 #### [facility] [address] [place] [address] Tear Drop Forms Slight Normal [facility] Comment on above: Performed By: #### C UA2 #### [facility] [address] [place] [address] Abs Baso Cnt 0.0 10*3/uL Normal 0.0-0.2 [facility] Comment on above: Performed By: #### C UA2 #### [facility] [address] [place] [address] Bands 0 % Normal 0-3 [facility] Comment on above: Performed By: #### C UA2 #### [facility] [address] [place] [address] Basophils 0 % Normal 0-2 [facility] Comment on above: Performed By: #### C UA2 #### [facility] [address] [place] [address] Cells counted 100 Normal [facility] Comment on above: Performed By: #### C UA2 #### [facility] [address] [place] [address] Manual Differentialon 2021 Absolute Baso # 0.0 10*3/uL 0 - 0.2 10*3/uL [employer] Work Phone: [phone] Absolute Eos # 1.9 10*3/uL High 0 - 0.5 10*3/uL [facility] Work Phone: [phone] Absolute Lymph # 2.4 10*3/uL 1.1 - 4.5 10*3/uL [facility] Work Phone: [phone] Absolute [place] # 0.6 10*3/uL 0.2 - 1.1 10*3/uL [employer] Work Phone: [phone] Absolute Neut # 5.4 10*3/uL 2.2 - 8.2 10*3/uL [facility] Work Phone: [phone] Anisocytosis Slight [facility] Work Phone: [phone] Bands 0 % 0 - 3 % [facility] Work Phone: [phone] Basophils/100 WBC (Bld) 0 % 0 - 2 % [facility] Work Phone: Eosinophils/100 WBC (Bld) 18 % High 1 - 6 % [facility] Work Phone: Interpretation and review of laboratory results Abnormal [facility] Work Phone: Lymphocytes/100 WBC (Bld) 23 % 20 - 40 % [facility] Work Phone: Metamyelocytes 1 % Abnormal NINF - 1 % [facility] Work Phone: Monocytes/100 WBC (Bld) 6 % 2 - 10 % [facility] Work Phone: Ovalocytes Slight [facility] Work Phone: RBC (Bld) [#/Vol] ABNORMAL [facility] Work Phone: Seg Neutrophils 52 % 40 - 80 % [facility] Work Phone: Tear Drop Cells Slight [facility] Work Phone: TOTAL CELLS COUNTED 100 [facility] Work Phone: Test Performed by [facility], [address] [place] [address] [facility] Work Phone: Basic Metabolic Panelon 10-1 0-2021 Anion gap [Moles/Vol] 6 mmol/L Normal 3-13 [facility] Comment on above: Performed By: #### B MP3M, HEMDF #### [facility] [address] [place] [address] Calcium [Mass/Vol] 10.4 mg/dL Normal 8.4-10.4 [facility] Comment on above: Performed By: #### B MP3M, HEMDF #### [facility] [address] [place] [address] CO2 [Moles/Vol] 27 mmol/L Normal 22-30 [facility] Comment on above: Performed By: #### B MP3M, HEMDF #### [facility] [address] [place] [address] Creatinine [Mass/Vol] 1.49 mg/dL High 0.52-1.25 [facility] Comment on above: Performed By: #### B MP3M, HEMDF #### [facility] [address] [place] [address] GFR/1.73 sq M.predicted among blacks MDRD (S/P/Bld) [Vol rate/Area] 58.2 mL/min/{1.73_m2} Abnormal >60 [facility] Comment on above: Performed By: #### B MP3M, HEMDF #### [facility] [address] [facility] [place] [address] GFR/1.73 sq M.predicted among non-blacks MDRD (S/P/Bld) [Vol rate/Area] 50.2 mL/min/{1.73_m2} Abnormal >60 [facility] Comment on above: Result Comment: KDIG O [...] renal tubular creatinine secretion. Performed By: #### Zayra MP3M, HEMDF #### [facility] [address] [place] [address] Glucose [Mass/Vol] 106 mg/dL High 70-100 [facility] Comment on above: Performed By: #### Zayra MP3M, HEMDF #### [facility] [address] [place] [address] Urea nitrogen [Mass/Vol] 22 mg/dL High 7-17 [facility] Comment on above: Performed By: #### B MP3M, HEMDF #### [facility] [address] [place] [address] Chloride [Moles/Vol] 105 mmol/L Normal 98-107 [facility] Comment on above: Performed By: #### B MP3M, HEMDF #### [facility] [address] [place] [address] Potassium [Moles/Vol] 4.9 mmol/L Normal 3.5-5.1 [facility] Comment on above: Performed By: #### B MP3M, HEMDF #### [facility] [address] [place] [address] Sodium [Moles/Vol] 138 mmol/L Normal 135-145 [facility] Comment on above: Performed By: #### B MP3M, HEMDF #### [facility] [address] [place] [address] Basic Metabolic Panel w/ Ref rolanda to MG 12-04-2021 Anion gap [Moles/Vol] 6 mmol/L 3 - 13 mmol/L [facility] Calcium [Mass/Vol] 10.4 mg/dL 8.4 - 10. 4 mg/dL [facility] Chloride [Moles/Vol] 105 mmol/L 98 - 10 7 mmol/L [facility] CO2 [Moles/Vol] 27 mmol/L 22 - 30 mmol/L [facility] Creatinine [Mass/Vol] 1.49 mg/dL High 0.52 - 1.25 mg/dL [facility] EGFR IF NonAfrican Guamanian 50.2 mL/min Abnormal 60 - PINF mL/min [facility] Comment on above: KDIGO guidelines pro vide [...] 106 mg/dL High 70 - 100 mg/dL [facility] Interpretation and review of laboratory results Abnormal [facility] Potassium [Moles/Vol] 4.9 mmol/L 3.5 - 5.1 mmol/L [facility] Sodium [Moles/Vol] 138 mmol/L 135 - 145 mmol/L [facility] Urea nitrogen (BldV) [Mass/Vol] 22 mg/dL High 7 - 17 mg/dL [facility] Test Performed by [facility], [address] [place] [address] LAB [facility] CBC with Auto Differentialon 12-04-2021 Absolute Baso [...] [Mass/Vol] 15.9 g/dL 13 - 18 g/dL [facility] Interpretation and review of laboratory results Abnormal [...] [#/Vol] 0.7 10*3/uL 0 - 0.8 10*3/uL [facility] Monocytes/100 WBC (Bld) 6.6 % 2 - 10 % [facility] Platelet distribution width (Bld) [Ratio] 13.5 % 11.5 - 14.5 % [facility] Platelet mean volume (Bld) [Entitic vol] 7.3 fL Low 7.4 - 12.4 fL [facility] Comment on above: MPV is a calculated measurement using platelet volume ratio. Platelets (Bld) [#/Vol] 268 10*3/uL 140 - 440 10*3/uL [facility] RBC (Bld) [#/Vol] 5.20 10*6/uL 4.4 - 5.9 10*6/uL [facility] WBC (Bld) [#/Vol] 10.1 10*3/uL 3.6 - 10.7 10*3/uL [facility] Test Performed by [facility], [address] [place], [place] [id number] [place] [address] LAB [facility] Complete Urinalysison 2021 Appearance (U) Clear Normal Clear [facility] Comment on above: Result Comment: . Performed By: #### H EMDF, TSH5, LIPD2, CMP3M #### [facility] [address] [place] [address] Bilirubin,Urine Negative Normal Negative [facility] Comment on above: Result Comment: . Performed By: #### H EMDF, TSH5, LIPD2, CMP3M #### [facility] [address] [place] [address] Color (U) Light-Yellow Normal Lt. Yellow [facility] Comment on above: Result Comment: . Performed By: #### H EMDF, TSH5, LIPD2, CMP3M #### [facility] [address] [place] [address] Glucose Ql (U) Normal Normal Normal (<70) [facility] Comment on above: Result Comment: . Performed By: #### H EMDF, TSH5, LIPD2, CMP3M #### [facility] [address] [place] [address] Ketone,Urine Negative Normal Negative [facility] Comment on above: Result Comment: . Performed By: #### H EMDF, TSH5, LIPD2, CMP3M #### [facility] [address] [place] [address] Leukocytes,Urine Negative Normal Negative [facility] Comment on above: Result Comment: . Performed By: #### H EMDF, TSH5, LIPD2, CMP3M #### [facility] [address] [place] [address] Nitrites,Urine Negative Normal Negative [facility] Comment on above: Result Comment: . Performed By: #### H EMDF, TSH5, LIPD2, CMP3M #### [facility] [address] [place] [address] Occult Blood,Urine Negative Normal Negative [facility] Comment on above: Result Comment: . Performed By: #### H EMDF, TSH5, LIPD2, CMP3M #### [facility] [address] [place] [address] pH,Urine 7.0 Normal 5.0-8.0 [facility] Comment on above: Result Comment: . Performed By: #### H EMDF, TSH5, LIPD2, CMP3M #### [facility] [address] [place] [address] Specific [place],Urine 1.013 Normal 1.005 - 1.030 [facility] Comment on above: Result Comment: . Performed By: #### H EMDF, TSH5, LIPD2, CMP3M #### [facility] [address] [place] [address] Total Protein,Urine Negative Normal Negative [facility] Comment on above: Result Comment: . Performed By: #### H EMDF, TSH5, LIPD2, CMP3M #### [facility] [address] [place] [address] Urobilinogen,Urine Normal Normal Normal (0-1) [facility] Comment on above: Result Comment: . Performed By: #### H EMDF, TSH5, LIPD2, CMP3M #### [facility] [address] [place] [address] Hemogram w/ Autodiffon 12-04 Abs Baso Cnt 0.1 10*3/uL Normal 0.0-0.2 [facility] Comment on above: Performed By: #### B MP3M, HEMDF #### [facility] [address] [place] [address] Abs Neutrophile Cnt 5.0 10*3/uL Normal 1.8-7.0 [facility] Comment on above: Performed By: #### B MP3M, HEMDF #### [facility] [address] [place] [address] Basophils/100 WBC (Bld) 0.6 % Normal 0.0-2.0 S [facility] Comment on above: Performed By: #### B MP3M, HEMDF #### [facility] [address] [place] [address] Eosinophils (Bld) [#/Vol] 1.5 10*3/uL High 0.0-0.5 [facility] Comment on above: Performed By: #### B MP3M, HEMDF #### [facility] [address] [place] [address] Eosinophils/100 WBC (Bld) 14.6 % High 1.0-6.0 [facility] Comment on above: Performed By: #### B MP3M, HEMDF #### [facility] [address] [place] [address] Erythrocyte distribution width (RBC) [Ratio] 13.5 % Normal 11.5-14.5 [facility] Comment on above: Performed By: #### B MP3M, HEMDF #### [facility] [address] [place] [address] Granulocytes/100 WBC (Bld) 49.8 % Normal 40.0-80.0 [facility] Comment on above: Performed By: #### B MP3M, HEMDF #### [facility] [address] [place] [address] Hematocrit (Bld) [Volume fraction] 46.9 % Normal 40.0-52.0 [facility] Comment on above: Performed By: #### B MP3M, HEMDF #### [facility] [address] [place] [address] Hemoglobin (Bld) [Mass/Vol] 15.9 g/dL Normal 13.0-18.0 [facility] Comment on above: Performed By: #### B MP3M, HEMDF #### [facility] [address] [place] [address] Lymphocytes (Bld) [#/Vol] 2.9 10*3/uL Normal 1.0-4.3 [facility] Comment on above: Performed By: #### B MP3M, HEMDF #### [facility] [address] [place] [address] Lymphocytes/100 WBC (Bld) 28.4 % Normal 20.0-40.0 [facility] Comment on above: Performed By: #### B MP3M, HEMDF #### [facility] [address] [place] [address] MCH (RBC) [Entitic mass] 30.7 pg Normal 26.0-34.0 [facility] Comment on above: Performed By: #### B MP3M, HEMDF #### [facility] [address] [place] [address] MCHC 34.0 % Normal 32.0-36.0 [facility] Comment on above: Performed By: #### B MP3M, HEMDF #### [facility] [address] [place] [address] MCV (RBC) [Entitic vol] 90.2 fL Normal 80.0-98.0 S [facility] Comment on above: Performed By: #### B MP3M, HEMDF #### [facility] [address] [place] [address] Monocytes (Bld) [#/Vol] 0.7 10*3/uL Normal 0.0-0.8 [facility] Comment on above: Performed By: #### B MP3M, HEMDF #### [facility] [address] [place] [address] Monocytes/100 WBC (Bld) 6.6 % Normal 2.0-10.0 S [facility] Comment on above: Performed By: #### B MP3M, HEMDF #### [facility] [address] [place] [address] Platelet mean volume (Bld) [Entitic vol] 7.3 fL Low 7.4-12.4 [facility] Comment on above: Result Comment: MPV is a calculated measurement using platelet volume ratio. Performed By: #### B MP3M, HEMDF #### [facility] [address] [place] [address] Platelets (Bld) [#/Vol] 268 10*3/uL Normal 140-440 [facility] Comment on above: Performed By: #### B MP3M, HEMDF #### [facility] [address] [place] [address] RBC (Bld) [#/Vol] 5.20 10*6/uL Normal 4.40-5.90 [facility] Comment on above: Performed By: #### B MP3M, HEMDF #### [facility] [address] [place] [address] WBC (Bld) [#/Vol] 10.1 10*3/uL Normal 3.6-10.7 [facility] Comment on above: Performed By: #### B MP3M, HEMDF #### [facility] [address] [place] [address] US RETROPERITONEAL LIMITEDon 12-04-2021 Patient Name: CORRIE QUEEN Ultrasound ACCESSION EXAM DATE/TIME PROCEDURE ORDERING PROVIDER [id number] 12/04/2021 10:28 EDT US Retroperitoneal KIARA BOB CPT code 17732 Reason For Exam (US Retroperitoneal Limited) R [...] Tyshawn, Unknown Provider - 12/04/2021 Patient Name: CORRIE QUEEN Ultrasound ACCESSION EXAM DATE/TIME PROCEDURE ORDERING PROVIDER [id number] 12/04/2021 10:28 EDT US Retroperitoneal KIARA BOB CPT code 06983 Reason For Exam (US Retroperitoneal Limited) R [...] Ultrasound ACCESSION EXAM DATE/TIME PROCEDURE ORDERING PROVIDER [id number] 12/04/2021 10:28 EDT US Retroperitoneal KIARA BOB CPT code 34207 Reason For Exam (US Retroperitoneal Limited) R [...] Transcribed Date and Time: 12/04/2021 2:48 Normal [facility] UrinalysisOrdered By: Connor Kapoor on 12-04-2021 Appearance (U) Clear Clear NA [facility] Comment on above: . Bilirubin Urine Negative Negative mg/dL [facility] Comment on above: . Color (U) Light-Yellow Lt. Yellow NA [facility] Comment on above: . Glucose, Ur Normal Normal (<70) mg/dL [facility] Comment on above: . Ketones Ql (U) Negative Negative mg/dL [facility] Comment on above: . LEUKOCYTES, UA Negative Negative Irina/uL [facility] Comment on above: . Nitrite, Urine Negative Negative NA [facility] Comment on above: . Occult Blood,Urine Negative Negative mg/dL [facility] Comment on above: . pH (U) 7.0 [pH] [facility] Comment on above: . Specific [place], Urine 1.013 [facility] Comment on above: . Total Protein, Urine Negative Negativ e mg/dL [facility] Comment on above: . Urobilinogen, Urine Normal Normal (0-1) mg/dL [facility] Comment on above: . [facility] Urinalysison 12-04-2021 Test Performed by [facility], [address] [place] [address] [facility] Basic Metabolic Panelon 10-0 Calcium [Mass/Vol] 9.7 mg/dL Normal 8.4-10.4 [facility] Comment on above: Performed By: #### H EMDF, TSH5, LIPD2, CMP3M #### [facility] [address] [place] [address] Glucose [Mass/Vol] 96 mg/dL Normal 70-100 [facility] Comment on above: Performed By: #### H EMDF, TSH5, LIPD2, CMP3M #### [facility] [address] [place] [address] Anion gap [Moles/Vol] 7 mmol/L Normal 3-13 [facility] Comment on above: Performed By: #### H EMDF, TSH5, LIPD2, CMP3M #### [facility] [address] [place] [address] CO2 [Moles/Vol] 21 mmol/L Low 22-30 [facility] Comment on above: Performed By: #### H EMDF, TSH5, LIPD2, CMP3M #### [facility] [address] [place] [address] Creatinine [Mass/Vol] 1.22 mg/dL Normal 0.52-1.25 [facility] Comment on above: Performed By: #### H EMDF, TSH5, LIPD2, CMP3M #### [facility] [address] [place] [address] GFR/1.73 sq M.predicted among blacks MDRD (S/P/Bld) [Vol rate/Area] 74.1 mL/min/{1.73_m2} Normal >60 [facility] Comment on above: Performed By: #### H EMDF, TSH5, LIPD2, CMP3M #### [facility] [address] [place] [address] GFR/1.73 sq M.predicted among non-blacks MDRD (S/P/Bld) [Vol rate/Area] 63.9 mL/min/{1.73_m2} Normal >60 [facility] Comment on above: Result Comment: KDIG O [...] #### H EMDF, TSH5, LIPD2, CMP3M #### [facility] [address] [place] [address] Urea nitrogen [Mass/Vol] 24 mg/dL High 7-17 [facility] Comment on above: Performed By: #### H EMDF, TSH5, LIPD2, CMP3M #### [facility] [address] [place] [address] Chloride [Moles/Vol] 110 mmol/L High 98-107 [facility] Comment on above: Performed By: #### H EMDF, TSH5, LIPD2, CMP3M #### [facility] [address] [place] [address] Potassium [Moles/Vol] 4.2 mmol/L Normal 3.5-5.1 [facility] Comment on above: Performed By: #### H EMDF, TSH5, LIPD2, CMP3M #### [facility] [address] [place] [address] Sodium [Moles/Vol] 137 mmol/L Normal 135-145 [facility] Comment on above: Performed By: #### H EMDF, TSH5, LIPD2, CMP3M #### [facility] [address] [place] [address] Basic Metabolic Panel w/ Ref rolanda to MGon 12-03-2021 Anion gap [Moles/Vol] 7 mmol/L 3 - 13 mmol/L [facility] Calcium [Mass/Vol] 9.7 mg/dL 8.4 - 10. 4 mg/dL [facility] Chloride [Moles/Vol] 110 mmol/L High 98 - 10 7 mmol/L [facility] CO2 [Moles/Vol] 21 mmol/L Low 22 - 30 mmol/L [facility] Creatinine [Mass/Vol] 1.22 mg/dL 0.52 - 1.25 mg/dL [facility] EGFR IF NonAfrican Guamanian 63.9 mL/min 60 - PINF mL/min [facility] Comment on above: KDIGO guidelines pro vide [...] 24 mg/dL High 7 - 17 mg/dL [facility] Test Performed by [facility], [address] [place] [address] LAB [facility] CBC with Auto Differentialon 12-03-2021 Absolute [...] [Mass/Vol] 14.6 g/dL 13 - 18 g/dL [facility] Interpretation and review of laboratory results Abnormal [facility] Lymphocytes (Bld) [#/Vol] 2.3 10*3/uL 1 - 4.3 10*3/uL [facility] Lymphocytes/100 WBC (Bld) 29.5 % 20 - 40 % [facility] MCH (RBC) [Entitic mass] 30.9 pg 26 - 34 pg [facility] MCHC (RBC) [Mass/Vol] 34.8 % 32 - 36 % [facility] MCV (RBC) [Entitic vol] 88.7 fL 80 - 98 fL [facility] Monocytes (Bld) [#/Vol] 0.5 10*3/uL 0 - 0.8 10*3/uL [facility] Monocytes/100 WBC (Bld) 6.2 % 2 - 10 % [facility] Platelet distribution width (Bld) [Ratio] 13.7 % 11.5 - 14.5 % [facility] Platelet mean volume (Bld) [Entitic vol] 7.2 fL Low 7.4 - 12.4 fL [facility] Comment on above: MPV is a calculated measurement using platelet volume ratio. Platelets (Bld) [#/Vol] 228 10*3/uL 140 - 440 10*3/uL [facility] [facility] RBC (Bld) [#/Vol] 4.72 10*6/uL 4.4 - 5.9 10*6/uL [facility] WBC (Bld) [#/Vol] 7.8 10*3/uL 3.6 - 10.7 10*3/uL [facility] Test Performed by [facility], [address] [place], [place] [id number] [place] [address] LAB [facility] Hemogram w/ Autodiffon 12-03 Abs Baso Cnt 0.0 10*3/uL Normal 0.0-0.2 [facility] Comment on above: Performed By: #### H EMDF, TSH5, LIPD2, CMP3M #### [facility] [address] [place] [address] Abs Neutrophile Cnt 3.6 10*3/uL Normal 1.8-7.0 [facility] Comment on above: Performed By: #### H EMDF, TSH5, LIPD2, CMP3M #### [facility] [address] [place] [address] Basophils/100 WBC (Bld) 0.5 % Normal 0.0-2.0 S [facility] Comment on above: Performed By: #### H EMDF, TSH5, LIPD2, CMP3M #### [facility] [address] [place] [address] Eosinophils (Bld) [#/Vol] 1.3 10*3/uL High 0.0-0.5 [facility] Comment on above: Performed By: #### H EMDF, TSH5, LIPD2, CMP3M #### [facility] [address] [place] [address] Eosinophils/100 WBC (Bld) 17.0 % High 1.0-6.0 [facility] Comment on above: Performed By: #### H EMDF, TSH5, LIPD2, CMP3M #### [facility] [address] [place] [address] Erythrocyte distribution width (RBC) [Ratio] 13.7 % Normal 11.5-14.5 [facility] Comment on above: Performed By: #### H EMDF, TSH5, LIPD2, CMP3M #### [facility] [address] [place] [address] Granulocytes/100 WBC (Bld) 46.8 % Normal 40.0-80.0 [facility] Comment on above: Performed By: #### H EMDF, TSH5, LIPD2, CMP3M #### [facility] [address] [place] [address] Hematocrit (Bld) [Volume fraction] 41.8 % Normal 40.0-52.0 [facility] Comment on above: Performed By: #### H EMDF, TSH5, LIPD2, CMP3M #### [facility] [address] [place] [address] Hemoglobin (Bld) [Mass/Vol] 14.6 g/dL Normal 13.0-18.0 [facility] Comment on above: Performed By: #### H EMDF, TSH5, LIPD2, CMP3M #### [facility] [address] [place] [address] Lymphocytes (Bld) [#/Vol] 2.3 10*3/uL Normal 1.0-4.3 [facility] Comment on above: Performed By: #### H EMDF, TSH5, LIPD2, CMP3M #### [facility] [address] [place] [address] Lymphocytes/100 WBC (Bld) 29.5 % Normal 20.0-40.0 [facility] Comment on above: Performed By: #### H EMDF, TSH5, LIPD2, CMP3M #### [facility] [address] [place] [address] MCH (RBC) [Entitic mass] 30.9 pg Normal 26.0-34.0 [facility] Comment on above: Performed By: #### H EMDF, TSH5, LIPD2, CMP3M #### [facility] [address] [place] [address] MCHC 34.8 % Normal 32.0-36.0 [facility] Comment on above: Performed By: #### H EMDF, TSH5, LIPD2, CMP3M #### [facility] [address] [place] [address] MCV (RBC) [Entitic vol] 88.7 fL Normal 80.0-98.0 S [facility] Comment on above: Performed By: #### H EMDF, TSH5, LIPD2, CMP3M #### [facility] [address] [place] [address] Monocytes (Bld) [#/Vol] 0.5 10*3/uL Normal 0.0-0.8 [facility] Comment on above: Performed By: #### H EMDF, TSH5, LIPD2, CMP3M #### [facility] [address] [place] [address] Monocytes/100 WBC (Bld) 6.2 % Normal 2.0-10.0 [facility] Comment on above: Performed By: #### H EMDF, TSH5, LIPD2, CMP3M #### [facility] [address] [place] [address] Platelet mean volume (Bld) [Entitic vol] 7.2 fL Low 7.4-12.4 [facility] Comment on above: Result Comment: MPV is a calculated measurement using platelet volume ratio. Performed By: #### H EMDF, TSH5, LIPD2, CMP3M #### [facility] [address] [place] [address] Platelets (Bld) [#/Vol] 228 10*3/uL Normal 140-440 [facility] Comment on above: Performed By: #### H EMDF, TSH5, LIPD2, CMP3M #### [facility] [employer] [facility] [address] [place] [address] RBC (Bld) [#/Vol] 4.72 10*6/uL Normal 4.40-5.90 [facility] Comment on above: Performed By: #### H EMDF, TSH5, LIPD2, CMP3M #### [facility] [employer] [facility] [address] [place] [address] WBC (Bld) [#/Vol] 7.8 10*3/uL Normal 3.6-10.7 [facility] Comment on above: Performed By: #### H EMDF, TSH5, LIPD2, CMP3M #### [facility] [employer] [facility] [address] [place] [address] CBC with Auto Differentialon 12-02-2021 Absolute Baso # 0.0 10*3/uL 0 - 0.2 10*3/uL [facility] Work Phone: Absolute Neut # 4.6 10*3/uL 1.8 - 7 10*3/uL [employer] Work Phone: [phone] Basophils/100 WBC (Bld) 0.4 % 0 - 2 % [facility] Work Phone: 22 Eosinophils (Bld) [#/Vol] 1.4 10*3/uL High 0 - 0.5 10*3/uL [facility] Work Phone: ) [phone] Eosinophils/100 WBC (Bld) 16.2 % High 1 - 6 % [facility] Work Phone: 22 Granulocytes/100 WBC (Bld) 54.3 % 40 - 80 % [facility] Work Phone: Hematocrit (Bld) [Volume fraction] 40.8 % 40 - 52 % [facility] Work Phone: Hemoglobin (Bld) [Mass/Vol] 14.3 g/dL 13 - 18 g/dL [facility] Work Phone: Interpretation and review of laboratory results Abnormal [facility] Work Phone: 22 Lymphocytes (Bld) [#/Vol] 1.8 10*3/uL 1 - 4.3 10*3/uL [facility] Work Phone: 1 Lymphocytes/100 WBC (Bld) 21.5 % 20 - 40 % [facility] Work Phone: MCH (RBC) [Entitic mass] 31.2 pg 26 - 34 pg [facility] Work Phone: 1 MCHC (RBC) [Mass/Vol] 35.0 % 32 - 36 % [facility] Work Phone: MCV (RBC) [Entitic vol] 89.0 fL 80 - 98 fL [facility] Work Phone: Monocytes (Bld) [#/Vol] 0.6 10*3/uL 0 - 0.8 10*3/uL [facility] Work Phone: 1 Monocytes/100 WBC (Bld) 7.6 % 2 - 10 % [facility] Work Phone: Platelet distribution width (Bld) [Ratio] 13.8 % 11.5 - 14.5 % [facility] Work Phone: Platelet mean volume (Bld) [Entitic vol] 7.1 fL Low 7.4 - 12.4 fL [facility] Work Phone: [phone] Comment on above: MPV is a calculated measurement using platelet volume ratio. Platelets (Bld) [#/Vol] 203 10*3/uL 140 - 440 10*3/uL [facility] Work Phone: RBC (Bld) [#/Vol] 4.58 10*6/uL 4.4 - 5.9 10*6/uL [facility] Work Phone: WBC (Bld) [#/Vol] 8.6 10*3/uL 3.6 - 10.7 10*3/uL [facility] Work Phone: Test Performed by [employer] [facility], [address] [place], [place] [address] [facility] Work Phone: [phone] CULTURE URINEon 12-02-2021 CULTURE URINE CULTURE URINE --> Status: F No growth (<1,000 CFU/ml). Normal [facility] Comment on above: Performed By: #### C UA2 #### [facility] [address] [place] [address] Comp Panel with Mg Reflexon 12-02-2021 Bilirubin [Mass/Vol] 0.4 mg/dL Normal 0.2-1.3 [facility] Comment on above: Performed By: #### H EMDF, TSH5, LIPD2, CMP3M #### [facility] [address] [place] [address] ALP [Catalytic activity/Vol] 46 U/L Normal 38-126 [facility] Comment on above: Performed By: #### H EMDF, TSH5, LIPD2, CMP3M #### [facility] [address] [place] [address] ALT [Catalytic activity/Vol] 16 U/L Normal 0-49 [facility] Comment on above: Result Comment: The ALT test is performed by an updated assay method. Please note that the reference intervals have been changed and are now sex specific. Performed By: #### H EMDF, TSH5, LIPD2, CMP3M #### [facility] [address] [place] [address] Anion gap [Moles/Vol] 9 mmol/L Normal 3-13 [facility] Comment on above: Performed By: #### H EMDF, TSH5, LIPD2, CMP3M #### [facility] [address] [place] [address] AST [Catalytic activity/Vol] 24 U/L Normal 15-46 [facility] Comment on above: Performed By: #### H EMDF, TSH5, LIPD2, CMP3M #### [facility] [address] [place] [address] Calcium [Mass/Vol] 9.7 mg/dL Normal 8.4-10.4 [facility] Comment on above: Performed By: #### H EMDF, TSH5, LIPD2, CMP3M #### [facility] [address] [place] [address] CO2 [Moles/Vol] 18 mmol/L Low 22-30 [facility] Comment on above: Performed By: #### H EMDF, TSH5, LIPD2, CMP3M #### [facility] [address] [place] [address] Creatinine [Mass/Vol] 1.49 mg/dL High 0.52-1.25 [facility] Comment on above: Performed By: #### H EMDF, TSH5, LIPD2, CMP3M #### [facility] [address] [place] [address] GFR/1.73 sq M.predicted among blacks MDRD (S/P/Bld) [Vol rate/Area] 58.2 mL/min/{1.73_m2} Abnormal >60 [facility] Comment on above: Performed By: #### H EMDF, TSH5, LIPD2, CMP3M #### [facility] [address] [place] [address] GFR/1.73 sq M.predicted among non-blacks MDRD (S/P/Bld) [Vol rate/Area] 50.2 mL/min/{1.73_m2} Abnormal >60 [facility] Comment on above: Result Comment: KDIG O [...] #### H EMDF, TSH5, LIPD2, CMP3M #### [facility] [address] [place] [address] Glucose [Mass/Vol] 99 mg/dL Normal 70-100 [facility] Comment on above: Performed By: #### H EMDF, TSH5, LIPD2, CMP3M #### [facility] [address] [place] [address] Protein [Mass/Vol] 6.7 g/dL Normal 6.3-8.2 [facility] Comment on above: Performed By: #### H EMDF, TSH5, LIPD2, CMP3M #### [facility] [address] [place] [address] Urea nitrogen [Mass/Vol] 29 mg/dL High 7-17 [facility] Comment on above: Performed By: #### H EMDF, TSH5, LIPD2, CMP3M #### [facility] [address] [place] [address] Potassium [Moles/Vol] 3.7 mmol/L Normal 3.5-5.1 [facility] Comment on above: Performed By: #### H EMDF, TSH5, LIPD2, CMP3M #### [facility] [address] [place] [address] Albumin [Mass/Vol] 3.7 g/dL Normal 3.5-5.0 [facility] Comment on above: Performed By: #### H EMDF, TSH5, LIPD2, CMP3M #### [facility] [address] [place] [address] Chloride [Moles/Vol] 107 mmol/L Normal 98-107 [facility] Comment on above: Performed By: #### H EMDF, TSH5, LIPD2, CMP3M #### [facility] [address] [place] [address] Sodium [Moles/Vol] 134 mmol/L Low 135-145 [facility] Comment on above: Performed By: #### H EMDF, TSH5, LIPD2, CMP3M #### [facility] [address] [place] [address] Comprehensive Metabolic Pane l w/ Reflex to MGon 12-02-2021 Albumin [Mass/Vol] 3.7 g/dL 3.5 - 5 g/dL [facility] Work Phone: ALP (Bld) [Catalytic activity/Vol] 46 U/L 38 - 126 U/L [employer] Work Phone: ALT [Catalytic activity/Vol] 16 U/L 0 - 49 U/L [facility] Work Phone: [phone] Comment on above: The ALT test is perf ormed by an updated assay method. Please note that the reference intervals have been changed and are now sex specific. Anion gap [Moles/Vol] 9 mmol/L 3 - 13 mmol/L [facility] Work Phone: AST [Catalytic activity/Vol] 24 U/L 15 - 46 U/L [facility] Work Phone: Bilirubin [Mass/Vol] 0.4 mg/dL 0.2 - 1 .3 mg/dL [facility] Work Phone: [phone] Calcium [Mass/Vol] 9.7 mg/dL 8.4 - 10. 4 mg/dL [facility] Work Phone: [phone] Chloride [Moles/Vol] 107 mmol/L 98 - 10 7 mmol/L [facility] Work Phone: [phone] CO2 [Moles/Vol] 18 mmol/L Low 22 - 30 mmol/L [facility] Work Phone: [phone] Creatinine [Mass/Vol] 1.49 mg/dL High 0.52 - 1.25 mg/dL [facility] Work Phone: [phone] EGFR IF NonAfrican Gu[place]ian 50.2 mL/min Abnormal 60 - PINF mL/min [facility] Work Phone: Comment on above: KDIGO guidelines [...] 58.2 mL/min/{1.73_m2} Abnormal 60 - PINF mL/min [facility] Work Phone: Glucose [Mass/Vol] 99 mg/dL 70 - 100 mg/dL [facility] Work Phone: Potassium [Moles/Vol] 3.7 mmol/L 3.5 - 5.1 mmol/L [facility] Work Phone: Protein [Mass/Vol] 6.7 g/dL 6.3 - 8.2 g/dL [facility] Work Phone: Sodium [Moles/Vol] 134 mmol/L Low 135 - 145 mmol/L [facility] Work Phone: Urea nitrogen (BldV) [Mass/Vol] 29 mg/dL High 7 - 17 mg/dL [facility] Work Phone: Culture, Urineon 12-02-2021 Bacteria identified Cx Nom (U) No growth (<1,000 CFU/ml). [facility] Test Performed by [facility] [employer] [facility], [address] [place] [id number] [facility] Hemogram w/ Autodiffon 12-02 Abs Baso Cnt 0.0 10*3/uL Normal 0.0-0.2 [facility] Comment on above: Performed By: #### H EMDF, TSH5, LIPD2, CMP3M #### [facility] [employer] [facility] [address] [place] [address] Abs Neutrophile Cnt 4.6 10*3/uL Normal 1.8-7.0 [facility] Comment on above: Performed By: #### H EMDF, TSH5, LIPD2, CMP3M #### [facility] [employer] [facility] [address] [place] [address] Basophils/100 WBC (Bld) 0.4 % Normal 0.0-2.0 S [facility] Comment on above: Performed By: #### H EMDF, TSH5, LIPD2, CMP3M #### [facility] [address] [place] [address] Eosinophils (Bld) [#/Vol] 1.4 10*3/uL High 0.0-0.5 [facility] Comment on above: Performed By: #### H EMDF, TSH5, LIPD2, CMP3M #### [facility] [address] [place] [address] Eosinophils/100 WBC (Bld) 16.2 % High 1.0-6.0 [facility] Comment on above: Performed By: #### H EMDF, TSH5, LIPD2, CMP3M #### [facility] [address] [place] [address] Erythrocyte distribution width (RBC) [Ratio] 13.8 % Normal 11.5-14.5 [facility] Comment on above: Performed By: #### H EMDF, TSH5, LIPD2, CMP3M #### [facility] [address] [place] [address] Granulocytes/100 WBC (Bld) 54.3 % Normal 40.0-80.0 [facility] Comment on above: Performed By: #### H EMDF, TSH5, LIPD2, CMP3M #### [facility] [address] [place] [address] Hematocrit (Bld) [Volume fraction] 40.8 % Normal 40.0-52.0 [facility] Comment on above: Performed By: #### H EMDF, TSH5, LIPD2, CMP3M #### [facility] [address] [place] [address] Hemoglobin (Bld) [Mass/Vol] 14.3 g/dL Normal 13.0-18.0 [facility] Comment on above: Performed By: #### H EMDF, TSH5, LIPD2, CMP3M #### [facility] [address] [place] [address] Lymphocytes (Bld) [#/Vol] 1.8 10*3/uL Normal 1.0-4.3 [facility] Comment on above: Performed By: #### H EMDF, TSH5, LIPD2, CMP3M #### [facility] [address] [place] [address] Lymphocytes/100 WBC (Bld) 21.5 % Normal 20.0-40.0 [facility] Comment on above: Performed By: #### H EMDF, TSH5, LIPD2, CMP3M #### [facility] [address] [place] [address] MCH (RBC) [Entitic mass] 31.2 pg Normal 26.0-34.0 [facility] Comment on above: Performed By: #### H EMDF, TSH5, LIPD2, CMP3M #### [facility] [address] [place] [address] MCHC 35.0 % Normal 32.0-36.0 [facility] Comment on above: Performed By: #### H EMDF, TSH5, LIPD2, CMP3M #### [facility] [address] [place] [address] MCV (RBC) [Entitic vol] 89.0 fL Normal 80.0-98.0 S [facility] Comment on above: Performed By: #### H EMDF, TSH5, LIPD2, CMP3M #### [facility] [address] [place] [address] Monocytes (Bld) [#/Vol] 0.6 10*3/uL Normal 0.0-0.8 [facility] Comment on above: Performed By: #### H EMDF, TSH5, LIPD2, CMP3M #### [facility] [address] [place] [address] Monocytes/100 WBC (Bld) 7.6 % Normal 2.0-10.0 [facility] Comment on above: Performed By: #### H EMDF, TSH5, LIPD2, CMP3M #### [facility] [address] [place] [address] Platelet mean volume (Bld) [Entitic vol] 7.1 fL Low 7.4-12.4 [facility] Comment on above: Result Comment: MPV is a calculated measurement using platelet volume ratio. Performed By: #### H EMDF, TSH5, LIPD2, CMP3M #### [facility] [address] [place] [address] Platelets (Bld) [#/Vol] 203 10*3/uL Normal 140-440 [facility] Comment on above: Performed By: #### H EMDF, TSH5, LIPD2, CMP3M #### [facility] [address] [place] [address] RBC (Bld) [#/Vol] 4.58 10*6/uL Normal 4.40-5.90 [facility] Comment on above: Performed By: #### H EMDF, TSH5, LIPD2, CMP3M #### [facility] [address] [place] [address] WBC (Bld) [#/Vol] 8.6 10*3/uL Normal 3.6-10.7 [facility] Comment on above: Performed By: #### H EMDF, TSH5, LIPD2, CMP3M #### [facility] [address] [place] [address] Lipid Panelon 12-02-2021 Low Density Lipoprotein 54 mg/dL Normal <100 [facility] Comment on above: Performed By: #### H EMDF, TSH5, LIPD2, CMP3M #### [facility] [address] [place] [address] Triglyceride [Mass/Vol] 187 mg/dL Abnormal <150 [facility] Comment on above: Performed By: #### H EMDF, TSH5, LIPD2, CMP3M #### [facility] [address] [place] [address] Chol/HDL 5 Normal [facility] Comment on above: Result Comment: Ref Range: < 3 Low Risk for CHD 3-6 Mod Risk for CHD > 6 High Risk for CHD Performed By: #### H EMDF, TSH5, LIPD2, CMP3M #### [facility] [address] [place] [address] Cholesterol in HDL [Mass/Vol] 21 mg/dL Low 40-60 [facility] Comment on above: Performed By: #### H EMDF, TSH5, LIPD2, CMP3M #### [facility] [address] [place] [address] Cholesterol [Mass/Vol] 112 mg/dL Normal < 200 [facility] Comment on above: Performed By: #### H EMDF, TSH5, LIPD2, CMP3M #### [facility] [address] [place] [address] Cholesterol [Mass/Vol] 112 mg/dL NINF - 200 mg/dL [employer] Work Phone: [phone] Cholesterol in HDL [Mass/Vol] 21 mg/dL Low 40 - 60 mg/dL [employer] Work Phone: [phone] Cholesterol in LDL [Mass/Vol] 54 mg/dL NINF - 100 mg/dL [employer] Work Phone: [phone] Cholesterol.total/Cholest betina in HDL [Mass ratio] 5 {ratio} [facility] Work Phone: [phone] Comment on above: Ref Range: < 3 Low Risk for CHD 3-6 Mod Risk for CHD > 6 High Risk for CHD Triglyceride [Mass/Vol] 187 mg/dL Abnormal NINF - 150 mg/dL [employer] Work Phone: [phone] Panel Informationon 12-02 Interpretation and review of laboratory results Abnormal [facility] Work Phone: [phone] Test Performed by [place] [address] [place], [place] [id number] [place] [address] LAB [employer] Work Phone: [phone] TSHon 12-02-2021 TSH Qn 2.706 u[IU]/mL 0.465 - 4.68 u[IU]/mL [facility] Work Phone: [phone] Test Performed by [facility], [facility] [address] [place], [place] [id number] [place] [address] LAB [employer] Work Phone: [phone] Thyroid Stim. Hormoneon Thyroid Stim. Hormone 2.706 u[IU]/mL Normal 0.465-4.68 0 [facility] Comment on above: Performed By: #### H EMDF, TSH5, LIPD2, CMP3M #### [facility] [address] [place] [address] Basic Metabolic Panelon 10-0 Calcium [Mass/Vol] 10.7 mg/dL High 8.4-10.4 [facility] Comment on above: Performed By: #### H EMDF, TSH5, LIPD2, CMP3M #### [facility] [address] [place] [address] Glucose [Mass/Vol] 122 mg/dL High 70-100 [facility] Comment on above: Performed By: #### H EMDF, TSH5, LIPD2, CMP3M #### [facility] [address] [place] [address] Anion gap [Moles/Vol] 9 mmol/L Normal 3-13 [facility] Comment on above: Performed By: #### H EMDF, TSH5, LIPD2, CMP3M #### [facility] [address] [place] [address] CO2 [Moles/Vol] 21 mmol/L Low 22-30 [facility] Comment on above: Performed By: #### H EMDF, TSH5, LIPD2, CMP3M #### [facility] [address] [place] [address] Creatinine [Mass/Vol] 1.34 mg/dL High 0.52-1.25 [facility] Comment on above: Performed By: #### H EMDF, TSH5, LIPD2, CMP3M #### [facility] [address] [place] [address] GFR/1.73 sq M.predicted among blacks MDRD (S/P/Bld) [Vol rate/Area] 66.2 mL/min/{1.73_m2} Normal >60 [facility] Comment on above: Performed By: #### H EMDF, TSH5, LIPD2, CMP3M #### [facility] [address] [place] [address] GFR/1.73 sq M.predicted among non-blacks MDRD (S/P/Bld) [Vol rate/Area] 57.1 mL/min/{1.73_m2} Abnormal >60 [facility] Comment on above: Result Comment: KDIG O [...] #### H EMDF, TSH5, LIPD2, CMP3M #### [facility] [address] [place] [address] Urea nitrogen [Mass/Vol] 18 mg/dL High 7-17 [facility] Comment on above: Performed By: #### H EMDF, TSH5, LIPD2, CMP3M #### [facility] [address] [place] [address] Potassium [Moles/Vol] 4.0 mmol/L Normal 3.5-5.1 [facility] Comment on above: Performed By: #### H EMDF, TSH5, LIPD2, CMP3M #### [facility] [address] [place] [address] Sodium [Moles/Vol] 133 mmol/L Low 135-145 [facility] Comment on above: Performed By: #### H EMDF, TSH5, LIPD2, CMP3M #### [facility] [address] [place] [address] Chloride [Moles/Vol] 103 mmol/L Normal 98-107 [facility] Comment on above: Performed By: #### H EMDF, TSH5, LIPD2, CMP3M #### [facility] [address] [place] [address] Anion gap [Moles/Vol] 9 mmol/L 3 - 13 mmol/L [facility] Calcium [Mass/Vol] 10.7 mg/dL High 8.4 - 10. 4 mg/dL [facility] Chloride [Moles/Vol] 103 mmol/L 98 - 10 7 mmol/L [facility] CO2 [Moles/Vol] 21 mmol/L Low 22 - 30 mmol/L [facility] Creatinine [Mass/Vol] 1.34 mg/dL High 0.52 - 1.25 mg/dL [facility] EGFR IF NonAfrican Guamanian 57.1 mL/min Abnormal 60 - PINF mL/min [facility] [...] - 10.7 10*3/uL [facility] Test Performed by [facility] [employer] [facility], [address] [place], [place] [id number] [place] [address] LAB [facility] CR Chest Portableon 12-02-19 22 CR Chest Portable Patient Name: CORRIE QUEEN Diagnostic Radiology ACCESSION EXAM DATE/TIME PROCEDURE ORDERING PROVIDER [id number] 12/01/2021 12:48 EDT CR Chest Portable [id number] TEMI THOMPSON CPT code 40775 Reason For Exam (CR Chest Portable) sob [...] Transcribed Date and Time: 12/01/2021 2:32 Normal [facility] Complete Urinalysison 2021 Appearance (U) Clear Normal Clear [facility] Comment on above: Result Comment: . Performed By: #### C UA2 #### [facility] [address] [place] [address] Bilirubin,Urine Negative Normal Negative [facility] Comment on above: Result Comment: . Performed By: #### C UA2 #### [facility] [address] [place] [address] Color (U) Yellow Normal Lt. Yellow [facility] Comment on above: Result Comment: . Performed By: #### C UA2 #### [facility] [address] [place] [address] Glucose Ql (U) Normal Normal Normal (<70) [facility] Comment on above: Result Comment: . Performed By: #### C UA2 #### [facility] [address] [place] [address] Ketone,Urine Negative Normal Negative [facility] Comment on above: Result Comment: . Performed By: #### C UA2 #### [facility] [address] [place] [address] Leukocytes,Urine Negative Normal Negative [facility] Comment on above: Result Comment: . Performed By: #### C UA2 #### [facility] [address] [place] [address] Nitrites,Urine Negative Normal Negative [facility] Comment on above: Result Comment: . Performed By: #### C UA2 #### [facility] [address] [place] [address] Occult Blood,Urine Negative Normal Negative [facility] Comment on above: Result Comment: . Performed By: #### C UA2 #### [facility] [address] [place] [address] pH,Urine 6.0 Normal 5.0-8.0 [facility] Comment on above: Result Comment: . Performed By: #### C UA2 #### [facility] [address] [place] [id number] Specific [place],Urine 1.015 Normal 1.005 - 1.030 [facility] Comment on above: Result Comment: . Performed By: #### C UA2 #### [facility] [address] [place] [address] Total Protein,Urine Negative Normal Negative [facility] Comment on above: Result Comment: . Performed By: #### C UA2 #### [facility] [address] [place] [address] Urobilinogen,Urine Normal Normal Normal (0-1) [facility] Comment on above: Result Comment: . Performed By: #### C UA2 #### [facility] [address] [place] [address] ECHO Complete 2D W Doppler W Coloron 12-01-2021 TRANSTHORACIC ECHOCARDIOGRAM PATIENT: Corrie Queen STUDY DATE: 12/01/2021 : 1960 AGE: 61 HT/WT: 182.9 cm (72 107.1 kg in) (235.5 lb) GENDER: M BP: 85 / 56 LOCATION: [facility] PATIENT Inpatient [facility] STATUS: *ORDERING PHYSICIAN: * Temi Lynne *READING PHYSICIAN: * Alyssa Ag MD *SWEET DOUGH MIXER: * Mari Parry -------- INDICATIONS: Chest pain. [...] ml/m^2 Aortic valve (more content not included)... [facility] CARDIOLOG[facility] Alyssa Ag MD - 12/01/2021 TRANSTHORACIC ECHOCARDIOGRAM PATIENT: Corrie Queen STUDY DATE: 12/01/2021 : 1960 AGE: 61 HT/WT: 182.9 cm (72 107.1 kg in) (235.5 lb) GENDER: M BP: 85 / 56 LOCATION: [facility] PATIENT Inpatient [facility] STATUS: *ORDERING PHYSICIAN: * Temi Lynne *READING PHYSICIAN: * Alyssa Ag MD *SWEET DOUGH MIXER: * Mari Parry -------- INDICATIONS: Chest pain. [...] 12/01/2021 17:40 P (more content not included)... [employer] Work Phone: ECHO Complete 2D W Doppler W ColorOrdered By: Alyssa Ag on 12-01-2021 [employer] Work Phone: ED Provider Noteon 2 ED [...] Comment: rarely Drug use: Yes Types: Marijuana ([place]) Social Determinants of Health Financial Resource Strain: Low Risk Difficulty of Paying Living Expenses: Not hard at all Food Insecurity: No Food Insecurity Worried About Running Out of Food in the Last Year: Never true Ran Out of Food in the Last Year: Never true Transportation Needs: No Transportation Needs Lack of Transportation (Medical): No Lack of Transportation (Non-Medical): No SCREENINGS [place] Coma Scale Eye Opening: Spontaneous Best Verbal Response: Oriented Best Motor Response: Obeys commands [place] Coma Scale Score: 15 PHYSICAL EXAM (5+ [...] Constitutional: General: (more content not included)... Normal [facility] ED Provider Note Patient, Corrie Queen, is [...] documentation. Barry Leon MD 12/01/21 1018 Normal [facility] EKG 12 Leadon 12-01-2021 [facility] Test Date: 2021-12-01 Pat Name: CORRIE QUEEN Department: 2AED Room: 06 Gender: M Slasher Operator: RE : 1960 Requested By: TEMI LYNNE Order Number: [id number] Reading MD: Barry Leon Measurements Intervals [place] Rate: 60 P: 55 SC: 190 QRS: -73 QRSD: 111 T: 30 QT: 427 QTc: 425 Interpretive Statements Sinus rhythm Inferior infarct, old Consider anterior infarct Compared to ECG from 05-23-12, no significant change Electronically Signed On 12-01-2021 14:06:11 EDT by Barry Leon [facility] Barry Leon MD - 12/01/2021 [facility] Test Date: 2021-12-01 Pat Name: CORRIE QUEEN Department: 2AED Room: 06 Gender: M Slasher Operator: RE : 1960 Requested By: TEMI LYNNE Order Number: [id number] Reading MD: Barry Leon Measurements Intervals [place] Rate: 60 P: 55 SC: 190 QRS: -73 QRSD: 111 T: 30 QT: 427 QTc: 425 Interpretive Statements Sinus rhythm Inferior infarct, old Consider anterior infarct Compared to ECG from 05-23-12, no significant change Electronically Signed On 12-01-2021 14:06:11 EDT by Barry Leon [facility] Work Phone: EKG 12 LeadOrdered By: Barry Leon on 12-01-2021 [facility] Work Phone: Echo Complete w/wo Contrasto n 12-01-2021 Echo Complete w/wo Contrast Patient Name: CORRIE QUEEN Ultrasound ACCESSION EXAM DATE/TIME PROCEDURE ORDERING PROVIDER [id number] 12/01/2021 15:51 EDT Echo Complete w/wo [id number] -TEMI LYNNE Contrast Reason For Exam (Echo Complete w/wo Contrast) chest pain Report TRANSTHORACIC ECHOCARDIOGRAM PATIENT: Corrie Queen STUDY DATE: 12/01/2021 : 1960 AGE: 61 HT/WT: 182.9 cm (72 107.1 kg in) (235.5 lb) GENDER: M BP: 85 / 56 LOCATION: [facility] PATIENT Inpatient [facility] STATUS: *ORDERING PHYSICIAN: * Temi Lynne *READING PHYSICIAN: * Alyssa Ag MD *SWEET DOUGH MIXER: * Mari Parry -------- INDICATIONS: Chest pain. [...] lateral 10 (more content not included)... Normal [facility] Hemogram w/ Autodiffon 12-01 Abs Baso Cnt 0.0 10*3/uL Normal 0.0-0.2 [facility] Comment on above: Performed By: #### H EMDF, TSH5, LIPD2, CMP3M #### [facility] [address] [place] [address] Abs Neutrophile Cnt 13.8 10*3/uL High 1.8-7.0 [facility] Comment on above: Performed By: #### H EMDF, TSH5, LIPD2, CMP3M #### [facility] [address] [place] [address] Basophils/100 WBC (Bld) 0.2 % Normal 0.0-2.0 S [facility] Comment on above: Performed By: #### H EMDF, TSH5, LIPD2, CMP3M #### [facility] [address] [place] [address] Eosinophils (Bld) [#/Vol] 0.9 10*3/uL High 0.0-0.5 [facility] Comment on above: Performed By: #### H EMDF, TSH5, LIPD2, CMP3M #### [facility] [address] [place] [address] Eosinophils/100 WBC (Bld) 5.7 % Normal 1.0-6.0 [facility] Comment on above: Performed By: #### H EMDF, TSH5, LIPD2, CMP3M #### [facility] [address] [place] [address] Erythrocyte distribution width (RBC) [Ratio] 13.6 % Normal 11.5-14.5 [facility] Comment on above: Performed By: #### H EMDF, TSH5, LIPD2, CMP3M #### [facility] [address] [place] [address] Granulocytes/100 WBC (Bld) 85.2 % High 40.0-80.0 [facility] Comment on above: Performed By: #### H EMDF, TSH5, LIPD2, CMP3M #### [facility] [address] [place] [address] Hematocrit (Bld) [Volume fraction] 45.8 % Normal 40.0-52.0 [facility] Comment on above: Performed By: #### H EMDF, TSH5, LIPD2, CMP3M #### [facility] [address] [place] [address] Hemoglobin (Bld) [Mass/Vol] 15.8 g/dL Normal 13.0-18.0 [facility] Comment on above: Performed By: #### H EMDF, TSH5, LIPD2, CMP3M #### [facility] [address] [place] [address] Lymphocytes (Bld) [#/Vol] 0.8 10*3/uL Low 1.0-4.3 [facility] Comment on above: Performed By: #### H EMDF, TSH5, LIPD2, CMP3M #### [facility] [address] [place] [address] Lymphocytes/100 WBC (Bld) 4.8 % Low 20.0-40.0 [facility] Comment on above: Performed By: #### H EMDF, TSH5, LIPD2, CMP3M #### [facility] [address] [place] [address] MCH (RBC) [Entitic mass] 30.5 pg Normal 26.0-34.0 [facility] Comment on above: Performed By: #### H EMDF, TSH5, LIPD2, CMP3M #### [facility] [address] [place] [address] MCHC 34.5 % Normal 32.0-36.0 [facility] Comment on above: Performed By: #### H EMDF, TSH5, LIPD2, CMP3M #### [facility] [address] [place] [address] MCV (RBC) [Entitic vol] 88.5 fL Normal 80.0-98.0 [facility] Comment on above: Performed By: #### H EMDF, TSH5, LIPD2, CMP3M #### [facility] [address] [place] [address] Monocytes (Bld) [#/Vol] 0.7 10*3/uL Normal 0.0-0.8 [facility] Comment on above: Performed By: #### H EMDF, TSH5, LIPD2, CMP3M #### [facility] [address] [place] [address] Monocytes/100 WBC (Bld) 4.1 % Normal 2.0-10.0 [facility] Comment on above: Performed By: #### H EMDF, TSH5, LIPD2, CMP3M #### [facility] [address] [place] [address] Platelet mean volume (Bld) [Entitic vol] 7.7 fL Normal 7.4-12.4 [facility] Comment on above: Result Comment: MPV is a calculated measurement using platelet volume ratio. Performed By: #### H EMDF, TSH5, LIPD2, CMP3M #### [facility] [address] [place] [address] Platelets (Bld) [#/Vol] 255 10*3/uL Normal 140-440 [facility] Comment on above: Performed By: #### H EMDF, TSH5, LIPD2, CMP3M #### [facility] [address] [place] [address] RBC (Bld) [#/Vol] 5.18 10*6/uL Normal 4.40-5.90 [facility] Comment on above: Performed By: #### H EMDF, TSH5, LIPD2, CMP3M #### [facility] [address] [place] [address] WBC (Bld) [#/Vol] 16.3 10*3/uL High 3.6-10.7 [facility] Comment on above: Performed By: #### H EMDF, TSH5, LIPD2, CMP3M #### [facility] [address] [place] [address] Hepatic Functionon 2 ALT [Catalytic activity/Vol] 20 U/L Normal 0-49 [facility] Comment on above: Result Comment: The ALT test is performed by an updated assay method. Please note that the reference intervals have been changed and are now sex specific. Performed By: #### H EMDF, TSH5, LIPD2, CMP3M #### [facility] [address] [place] [address] ALP [Catalytic activity/Vol] 58 U/L Normal 38-126 [facility] Comment on above: Performed By: #### H EMDF, TSH5, LIPD2, CMP3M #### [facility] [address] [place] [address] AST [Catalytic activity/Vol] 27 U/L Normal 15-46 [facility] Comment on above: Performed By: #### H EMDF, TSH5, LIPD2, CMP3M #### [facility] [address] [place] [address] Bilirubin [Mass/Vol] 0.7 mg/dL Normal 0.2-1.3 [facility] Comment on above: Performed By: #### H EMDF, TSH5, LIPD2, CMP3M #### [facility] [address] [place] [address] Bilirubin.indirect [Mass/Vol] 0.0 mg/dL Normal 0.0-0.3 [facility] Comment on above: Performed By: #### H EMDF, TSH5, LIPD2, CMP3M #### [facility] [address] [place] [address] Protein [Mass/Vol] 7.8 g/dL Normal 6.3-8.2 [facility] Comment on above: Performed By: #### H EMDF, TSH5, LIPD2, CMP3M #### [facility] [address] [place] [address] Albumin [Mass/Vol] 4.4 g/dL Normal 3.5-5.0 [facility] Comment on above: Performed By: #### H EMDF, TSH5, LIPD2, CMP3M #### [facility] [address] [place] [address] Hepatic Function Panelon Albumin [Mass/Vol] 4.4 g/dL 3.5 - 5 g/dL [facility] ALP (Bld) [Catalytic activity/Vol] 58 U/L 38 - 126 U/L [facility] ALT [Catalytic activity/Vol] 20 U/L 0 - 49 U/L [facility] Comment on above: The ALT test is perf ormed by an updated assay method. Please note that the reference intervals have been changed and are now sex specific. AST [Catalytic activity/Vol] 27 U/L 15 - 46 U/L [facility] Bilirubin [Mass/Vol] 0.7 mg/dL 0.2 - 1 .3 mg/dL [facility] Bilirubin.indirect [Mass/Vol] 0.0 mg/dL 0 - 0.3 mg/dL [facility] Protein [Mass/Vol] 7.8 g/dL 6.3 - 8.2 g/dL [facility] Lactate, Sepsison 12-01-2021 Lactate [Moles/Vol] 1.1 mmol/L 0.7 - 2 mmol/L [facility] Test Performed by [facility], [facility] [address] LAB [facility] Lactic Acid, Sepsison 2021 Lactate [Moles/Vol] 1.1 mmol/L Normal 0.7-2.0 [facility] Comment on above: Performed By: #### H EMDF, TSH5, LIPD2, CMP3M #### [facility] [address] [place] [address] Lipaseon 12-01-2021 Lipase [Catalytic activity/Vol] 24 U/L Normal 23-300 [facility] Comment on above: Performed By: #### H EMDF, TSH5, LIPD2, CMP3M #### [facility] [address] [place] [address] Lipase [Catalytic activity/Vol] 24 U/L 23 - 300 U/L [facility] No Panel Informationon 12-01 Test Performed by [facility], [address] [place], [place] [id number] [place] [address] LAB [facility] Troponinon 12-01-2021 Troponin I.cardiac [Mass/Vol] ng/mL 0 - 0.034 ng/mL [facility] Work Phone: Comment on above: . Test Performed by [facility], [address] [place], [place] [address] [facility] Work Phone: Troponin Ion 12-01-2021 Troponin I.cardiac [Mass/Vol] ng/mL Normal 0.000-0.034 [facility] Comment on above: Result Comment: . Performed By: #### H EMDF, TSH5, LIPD2, CMP3M #### [facility] [address] [place] [address] Urinalysison 12-01-2021 Appearance (U) Clear Clear NA [...] [pH] [facility] Comment on above: . Specific [place], Urine 1.015 S [facility] Comment on above: . Total Protein, Urine Negative Negativ e mg/dL [facility] Comment on above: . Urobilinogen, Urine Normal Normal (0-1) mg/dL [facility] Comment on above: . Test Performed by [facility], [address] [place], [place] [address] [facility] XR CHEST PORTABLEon 12-02-19 Patient Name: CORRIE QUEEN Diagnostic Radiology ACCESSION EXAM DATE/TIME PROCEDURE ORDERING PROVIDER [id number] 12/01/2021 12:48 EDT CR Chest Portable [id number] -TEMI LYNNE CPT code 69478 Reason For Exam (CR Chest Portable) sob [...] on --- Final --- Dictating Physician: MD MILLRE AHMAD Signed Date and Time: 12/01/2021 1:58 pm Signed by: MD MILLER AHMAD Transcribed Date and Time: 12/01/2021 2:32 [facility] Hema Miller MD - 12/01/2021 Patient Name: CORRIE QUEEN Diagnostic Radiology ACCESSION EXAM DATE/TIME PROCEDURE ORDERING PROVIDER [id number] 12/01/2021 12:48 EDT CR Chest Portable [id number] -TEMI LYNNE CPT code 60378 Reason For Exam (CR Chest Portable) sob [...] AHMAD Transcribed Date and Time: 12/01/2021 2:32 [facility] Work Phone: Radiology Study observation (narrative) [facility] Work Phone: XR CHEST PORTABLEOrdered By: Hema Miller on 12-01-2021 [facility] Work Phone: CULTURE URINEon 11-29-2021 CULTURE URINE CULTURE URINE --> Status: F No growth (<1,000 CFU/ml). Normal [facility] Comment on above: Performed By: #### C UA2 #### [facility] [address] [place] [address] Basic Metabolic Panelon 10-0 -2021 Anion gap [Moles/Vol] 10 mmol/L Normal 3-13 [facility] Comment on above: Performed By: #### H EMDF, TSH5, LIPD2, CMP3M #### [facility] [address] [place] [address] Calcium [Mass/Vol] 11.3 mg/dL High 8.4-10.4 [facility] Comment on above: Performed By: #### H EMDF, TSH5, LIPD2, CMP3M #### [facility] [address] [place] [address] CO2 [Moles/Vol] 21 mmol/L Low 22-30 [facility] Comment on above: Performed By: #### H EMDF, TSH5, LIPD2, CMP3M #### [facility] [address] [place] [address] Glucose [Mass/Vol] 135 mg/dL High 70-100 [facility] Comment on above: Performed By: #### H EMDF, TSH5, LIPD2, CMP3M #### [facility] [address] [place] [address] Urea nitrogen [Mass/Vol] 20 mg/dL High 7-17 [facility] Comment on above: Performed By: #### H EMDF, TSH5, LIPD2, CMP3M #### [facility] [address] [place] [address] Creatinine [Mass/Vol] 1.33 mg/dL High 0.52-1.25 [facility] Comment on above: Performed By: #### H EMDF, TSH5, LIPD2, CMP3M #### [facility] [address] [place] [address] GFR/1.73 sq M.predicted among blacks MDRD (S/P/Bld) [Vol rate/Area] 66.8 mL/min/{1.73_m2} Normal >60 [facility] Comment on above: Performed By: #### H EMDF, TSH5, LIPD2, CMP3M #### [facility] [address] [place] [address] GFR/1.73 sq M.predicted among non-blacks MDRD (S/P/Bld) [Vol rate/Area] 57.6 mL/min/{1.73_m2} Abnormal >60 [facility] Comment on above: Result Comment: KDIG O [...] #### H EMDF, TSH5, LIPD2, CMP3M #### [facility] [address] [place] [address] Chloride [Moles/Vol] 105 mmol/L Normal 98-107 [facility] Comment on above: Performed By: #### H EMDF, TSH5, LIPD2, CMP3M #### [facility] [address] [place] [address] Potassium [Moles/Vol] 3.9 mmol/L Normal 3.5-5.1 [facility] Comment on above: Performed By: #### H EMDF, TSH5, LIPD2, CMP3M #### [facility] [address] [place] [address] Sodium [Moles/Vol] 136 mmol/L Normal 135-145 [facility] Comment on above: Performed By: #### H EMDF, TSH5, LIPD2, CMP3M #### [facility] [address] [place] [address] CT Abdomen/Pelvis w/o Contra vik 11-28-2021 CT Abdomen/Pelvis w/o Contrast Patient Name: CORRIE QUEEN Computed Tomography ACCESSION EXAM DATE/TIME PROCEDURE ORDERING PROVIDER [id number] 11/27/2021 23:[address] Abdomen/Pelvis (No MD MIKE, TC PO, No IV) CPT code 24645 Reason For Exam (CT Abdomen/Pelvis (No PO, [...] Transcribed Date and Time: 11/27/2021 11:11 Normal [facility] Complete Urinalysison 2021 Bacteria LM.HPF (Urine sed) [#/Area] Negative Normal Negative [facility] Comment on above: Result Comment: . Performed By: #### C UA2 #### [facility] [address] [place] [address] Mucous Threads Few Normal Negative [facility] Comment on above: Result Comment: . Performed By: #### C UA2 #### [facility] [address] [place] [address] RBC, Urine 0 - 2 Normal 0-2 [facility] Comment on above: Result Comment: . Performed By: #### C UA2 #### [facility] [address] [place] [address] Squamous Epithelial 0 - 2 Normal 3-5 [facility] Comment on above: Result Comment: . Performed By: #### C UA2 #### [facility] [address] [place] [address] VOLUME, URINE 12 ml Normal [facility] Comment on above: Result Comment: . Performed By: #### C UA2 #### [facility] [address] [place] [address] WBC, Urine 3 - 5 Normal 0-5 [facility] Comment on above: Result Comment: . Performed By: #### C UA2 #### [facility] [address] [place] [address] Appearance (U) Clear Normal Clear [facility] Comment on above: Result Comment: . Performed By: #### C UA2 #### [facility] [address] [place] [address] Bilirubin,Urine Negative Normal Negative [facility] Comment on above: Result Comment: . Performed By: #### C UA2 #### [facility] [address] [place] [address] Color (U) LIGHT YELLOW Normal Lt. Yellow [facility] Comment on above: Result Comment: . Performed By: #### C UA2 #### [facility] [address] [place] [address] Glucose Ql (U) Normal Normal Normal (<70) [facility] Comment on above: Result Comment: . Performed By: #### C UA2 #### [facility] [address] [place] [address] Ketone,Urine Negative Normal Negative [facility] Comment on above: Result Comment: . Performed By: #### C UA2 #### [facility] [address] [place] [address] Leukocytes,Urine 25 Irina/uL Abnormal Negative [facility] Comment on above: Result Comment: . Performed By: #### C UA2 #### [facility] [address] [place] [address] Nitrites,Urine Negative Normal Negative [facility] Comment on above: Result Comment: . Performed By: #### C UA2 #### [facility] [address] [place] [address] Occult Blood,Urine Negative Normal Negative [facility] Comment on above: Result Comment: . Performed By: #### C UA2 #### [facility] [address] [place] [address] pH,Urine 5.0 Normal 5.0-8.0 [facility] Comment on above: Result Comment: . Performed By: #### C UA2 #### [facility] [address] [place] [address] Specific [place],Urine 1.011 Normal 1.005 - 1.030 [facility] Comment on above: Result Comment: . Performed By: #### C UA2 #### [facility] [address] [place] [address] Total Protein,Urine Negative Normal Negative [facility] Comment on above: Result Comment: . Performed By: #### C UA2 #### [facility] [address] [place] [address] Urobilinogen,Urine Normal Normal Normal (0-1) [facility] Comment on above: Result Comment: . Performed By: #### C UA2 #### [facility] [address] [place] [address] Hemogram w/ Autodiffon 11-28 Abs Baso Cnt 0.1 10*3/uL Normal 0.0-0.2 [facility] Comment on above: Performed By: #### H EMDF, TSH5, LIPD2, CMP3M #### [facility] [address] [place] [address] Abs Neutrophile Cnt 11.8 10*3/uL High 1.8-7.0 [facility] Comment on above: Performed By: #### H EMDF, TSH5, LIPD2, CMP3M #### [facility] [address] [place] [address] Basophils/100 WBC (Bld) 0.4 % Normal 0.0-2.0 [facility] Comment on above: Performed By: #### H EMDF, TSH5, LIPD2, CMP3M #### [facility] [address] [place] [address] Eosinophils (Bld) [#/Vol] 0.3 10*3/uL Normal 0.0-0.5 [facility] Comment on above: Performed By: #### H EMDF, TSH5, LIPD2, CMP3M #### [facility] [address] [place] [address] Eosinophils/100 WBC (Bld) 2.5 % Normal 1.0-6.0 [facility] Comment on above: Performed By: #### H EMDF, TSH5, LIPD2, CMP3M #### [facility] [address] [place] [address] Erythrocyte distribution width (RBC) [Ratio] 13.2 % Normal 11.5-14.5 [facility] Comment on above: Performed By: #### H EMDF, TSH5, LIPD2, CMP3M #### [facility] [address] [place] [address] Granulocytes/100 WBC (Bld) 86.0 % High 40.0-80.0 [facility] Comment on above: Performed By: #### H EMDF, TSH5, LIPD2, CMP3M #### [facility] [address] [place] [address] Hematocrit (Bld) [Volume fraction] 47.1 % Normal 40.0-52.0 [facility] Comment on above: Performed By: #### H EMDF, TSH5, LIPD2, CMP3M #### [facility] [address] [place] [address] Hemoglobin (Bld) [Mass/Vol] 17.0 g/dL Normal 13.0-18.0 [facility] Comment on above: Performed By: #### H EMDF, TSH5, LIPD2, CMP3M #### [facility] [address] [place] [address] Lymphocytes (Bld) [#/Vol] 0.8 10*3/uL Low 1.0-4.3 [facility] Comment on above: Performed By: #### H EMDF, TSH5, LIPD2, CMP3M #### [facility] [address] [place] [address] Lymphocytes/100 WBC (Bld) 5.5 % Low 20.0-40.0 [facility] Comment on above: Performed By: #### H EMDF, TSH5, LIPD2, CMP3M #### [facility] [address] [place] [address] MCH (RBC) [Entitic mass] 31.6 pg Normal 26.0-34.0 [facility] Comment on above: Performed By: #### H EMDF, TSH5, LIPD2, CMP3M #### [facility] [address] [place] [address] MCHC 36.1 % High 32.0-36.0 [facility] Comment on above: Performed By: #### H EMDF, TSH5, LIPD2, CMP3M #### [facility] [address] [place] [address] MCV (RBC) [Entitic vol] 87.5 fL Normal 80.0-98.0 S [facility] Comment on above: Performed By: #### H EMDF, TSH5, LIPD2, CMP3M #### [facility] [address] [place] [address] Monocytes (Bld) [#/Vol] 0.7 10*3/uL Normal 0.0-0.8 [facility] Comment on above: Performed By: #### H EMDF, TSH5, LIPD2, CMP3M #### [facility] [address] [place] [address] Monocytes/100 WBC (Bld) 5.2 % Normal 2.0-10.0 [facility] Comment on above: Performed By: #### H EMDF, TSH5, LIPD2, CMP3M #### [facility] [address] [place] [address] Platelet mean volume (Bld) [Entitic vol] 9.0 fL Normal 7.4-12.4 [facility] Comment on above: Result Comment: MPV is a calculated measurement using platelet volume ratio. Performed By: #### H EMDF, TSH5, LIPD2, CMP3M #### [facility] [address] [place] [address] Platelets (Bld) [#/Vol] 240 10*3/uL Normal 140-440 [facility] Comment on above: Performed By: #### H EMDF, TSH5, LIPD2, CMP3M #### [place] [address] [place] [address] RBC (Bld) [#/Vol] 5.38 10*6/uL Normal 4.40-5.90 [facility] Comment on above: Performed By: #### H EMDF, TSH5, LIPD2, CMP3M #### [facility] [address] [place] [address] WBC (Bld) [#/Vol] 13.7 10*3/uL High 3.6-10.7 [facility] Comment on above: Performed By: #### H EMDF, TSH5, LIPD2, CMP3M #### [facility] [address] [place] [address] Basic Metabolic Panelon 10-0 -2021 Anion gap [Moles/Vol] 10 mmol/L 3 - 13 mmol/L [facility] Work Phone: Calcium [Mass/Vol] 11.3 mg/dL High 8.4 - 10. 4 mg/dL [facility] Work Phone: Chloride [Moles/Vol] 105 mmol/L 98 - 10 7 mmol/L [facility] [facility] Work Phone: CO2 [Moles/Vol] 21 mmol/L Low 22 - 30 mmol/L [facility] Work Phone: [phone] Creatinine [Mass/Vol] 1.33 mg/dL High 0.52 - 1.25 mg/dL [facility] Work Phone: [phone] EGFR IF NonAfrican Guamanian 57.6 mL/min Abnormal 60 - PINF mL/min [facility] Work Phone: [phone] Comment on above: KDIGO guidelines pro vide [...] rate/Area] 66.8 mL/min/{1.73_m2} 60 - PINF mL/min [facility] Work Phone: [phone] Glucose [Mass/Vol] 135 mg/dL High 70 - 100 mg/dL [facility] Work Phone: [phone] Potassium [Moles/Vol] 3.9 mmol/L 3.5 - 5.1 mmol/L [facility] Work Phone: [phone] Sodium [Moles/Vol] 136 mmol/L 135 - 145 mmol/L [facility] Work Phone: [phone] Urea nitrogen (BldV) [Mass/Vol] 20 mg/dL High 7 - 17 mg/dL [facility] Work Phone: [phone] CBC with Auto Differentialon 11-27-2021 Absolute Baso # 0.1 10*3/uL 0 - 0.2 10*3/uL [facility] Work Phone: Absolute Neut # 11.8 10*3/uL High 1.8 - 7 10*3/uL [facility] Work Phone: 1 Basophils/100 WBC (Bld) 0.4 % 0 - 2 % [facility] Work Phone: Eosinophils (Bld) [#/Vol] 0.3 10*3/uL 0 - 0.5 10*3/uL [facility] Work Phone: Eosinophils/100 WBC (Bld) 2.5 % 1 - 6 % [facility] Work Phone: Granulocytes/100 WBC (Bld) 86.0 % High 40 - 80 % [facility] Work Phone: Hematocrit (Bld) [Volume fraction] 47.1 % 40 - 52 % [facility] Work Phone: Hemoglobin (Bld) [Mass/Vol] 17.0 g/dL 13 - 18 g/dL [facility] Work Phone: Interpretation and review of laboratory results Abnormal [facility] Work Phone: Lymphocytes (Bld) [#/Vol] 0.8 10*3/uL Low 1 - 4.3 10*3/uL [facility] Work Phone: Lymphocytes/100 WBC (Bld) 5.5 % Low 20 - 40 % [facility] Work Phone: MCH (RBC) [Entitic mass] 31.6 pg 26 - 34 pg [facility] Work Phone: MCHC (RBC) [Mass/Vol] 36.1 % High 32 - 36 % [facility] Work Phone: MCV (RBC) [Entitic vol] 87.5 fL 80 - 98 fL [facility] Work Phone: Monocytes (Bld) [#/Vol] 0.7 10*3/uL 0 - 0.8 10*3/uL [facility] Work Phone: Monocytes/100 WBC (Bld) 5.2 % 2 - 10 % S [place] Work Phone: Platelet distribution width (Bld) [Ratio] 13.2 % 11.5 - 14.5 % [facility] Phone: Platelet mean volume (Bld) [Entitic vol] 9.0 fL 7.4 - 12.4 fL [employer] Work Phone: Comment on above: MPV is a calculated measurement using platelet volume ratio. Platelets (Bld) [#/Vol] 240 10*3/uL 140 - 440 10*3/uL [employer] Work Phone: [phone] RBC (Bld) [#/Vol] 5.38 10*6/uL 4.4 - 5.9 10*6/uL [employer] Work Phone: [phone] WBC (Bld) [#/Vol] 13.7 10*3/uL High 3.6 - 10.7 10*3/uL [employer] Work Phone: Test Performed by [employer] [facility], [address] [place] [address] LAB [employer] Work Phone: CT Abdomen Pelvis Wo Contras ton 11-27-2021 Patient Name: CORRIE QUEEN Computed Tomography ACCESSION EXAM DATE/TIME PROCEDURE ORDERING PROVIDER [id number] 11/27/2021 23:[address] Abdomen/Pelvis (No MD MIKE, TC PO, No IV) CPT code 38202 Reason For Exam (CT Abdomen/Pelvis (No PO, [...] WENDELL Transcribed Date and Time: 11/27/2021 11:11 [facility] Darrick Luke MD - 11/27/2021 Patient Name: CORRIE QUEEN Computed Tomography ACCESSION EXAM DATE/TIME PROCEDURE ORDERING PROVIDER [id number] 11/27/2021 23:[address] Abdomen/Pelvis (No MD MIKE, TC PO, No IV) CPT code 62629 Reason For Exam (CT Abdomen/Pelvis (No PO, [...] WENDELL Transcribed Date and Time: 11/27/2021 11:11 [employer] Work Phone: Radiology Study observation (narrative) [facility] Work Phone: [phone] CT Abdomen Pelvis Wo Contras tOrdered By: Darrick Luke on 11-27-2021 [employer] Work Phone: No Panel Informationon 11-27 Interpretation and review of laboratory results Abnormal [facility] Work Phone: Test Performed by [facility] [employer] [facility], [address] [place], [place] [address] , [address] LAB [facility] Work Phone: Urinalysison 11-27-2021 Appearance (U) Clear Clear NA [facility] Work Phone: [phone] Comment on above: . Bacteria, UA Negative Negative /[HPF] [facility] Work Phone: [phone] Comment on above: . Bilirubin Urine Negative Negative mg/dL [facility] Work Phone: [phone] Comment on above: . Color (U) LIGHT YELLOW Lt. Yellow NA [employer] Work Phone: [phone] Comment on above: . Glucose, Ur Normal Normal (<70) mg/dL [facility] Work Phone: [phone] Comment on above: . Ketones Ql (U) Negative Negative mg/dL [facility] Work Phone: [phone] Comment on above: . LEUKOCYTES, UA 25 Abnormal Negative Irina/uL [facility] Work Phone: [phone] Comment on above: . Mucous Threads Few Negative /[LPF] [facility] Work Phone: [phone] Comment on above: . Nitrite, Urine Negative Negative NA [facility] Work Phone: [phone] Comment on above: . Occult Blood,Urine Negative Negative mg/dL [facility] Work Phone: [phone] Comment on above: . pH (U) 5.0 [pH] [facility] Work Phone: [phone] Comment on above: . RBC, UA /[HPF] 0 - 2 /[HPF] [facility] Work Phone: [phone] Comment on above: . Specific [place], Urine [address] [facility] Work Phone: [phone] Comment on above: . Squam Epithel, UA 0-2 3 - 5 /[HPF] [facility] Work Phone: [phone] Comment on above: . Total Protein, Urine Negative Negativ e mg/dL [facility] Work Phone: [phone] Comment on above: . Urobilinogen, Urine Normal Normal (0-1) mg/dL [facility] Work Phone: [phone] Comment on above: . Volume 12 ml [facility] Work Phone: [phone] Comment on above: . WBC, UA /[HPF] 0 - 5 /[HPF] [facility] Work Phone: [phone] Comment on above: . [facility] Brain w/ + w/o Contrast Patient Name: CORRIE QUEEN Magnetic Resonance Imaging ACCESSION EXAM DATE/TIME PROCEDURE ORDERING PROVIDER [id number] 10/18/2021 12:20 EDT MRI Brain w/ + w/o [id number], Contrast ROCIO CPT code 26350 Reason For Exam (MRI Brain w/ + [...] Transcribed Date and Time: 10/20/2021 8:17 Normal [facility] OT Bone Density DEXA Francisco Ske river 04-12-2021 OT Bone Density DEXA Francisco Skeleton Patient Name: CORRIE QUEEN Bone Density ACCESSION EXAM DATE/TIME PROCEDURE ORDERING PROVIDER [id number] 04/12/2021 09:15 EST OT Bone Density DEXA Francisco DO BENITO RYAN D Skeleton CPT code 75786 Reason For Exam (OT Bone Density DEXA Francisco Skeleton) osteoporosis evaluation. elevated PTH Report DXA BONE DENSITOMETRY: CLINICAL INDICATION: osteoporosis evaluation. elevated PTH. Screening for osteoporosis. COMPARISON: None TECHNIQUE: Quantitative bone mineral densitometry of the hip, radius and lumbar spine was performed with a dual energy x-ray observed absorptiometry device - Offermatica at some institutions, HOLOGIC at others. Regions [...] recommendations for prevention of bone loss include: 0857-9975 mg calcium intake per day for adults [...] [place] of Knowledge Evidence - based Summaries. [facility] [employer] 2017. Report Dictated on Final Dictating Physician: MD VOGT JAMES Signed Date and Time: 04/13/2021 12:02 pm Signed by: MD VOGT JAMES Transcribed Date and Time: 04/13/2021 12:04 Normal [facility] [employer] [facility] OT Bone Density DEXA Axial S noriaurelianooneal 04-12-2021 OT Bone Density DEXA Axial Skeleton Patient Name: CORRIE QUEEN Bone Density ACCESSION EXAM DATE/TIME PROCEDURE ORDERING PROVIDER [id number] 04/12/2021 09:15 EST OT Bone Density DEXA DO THONGKENNEDI Axial Skeleton CPT code 80311 Reason For Exam (OT Bone Density DEXA Axial Skeleton) osteoporosis, at risk for osteoporosis. Report DXA BONE DENSITOMETRY: CLINICAL INDICATION: osteoporosis evaluation. elevated PTH. Screening for osteoporosis. COMPARISON: None TECHNIQUE: Quantitative bone mineral densitometry of the hip, radius and lumbar spine was performed with a dual energy x-ray observed absorptiometry device - Offermatica at some institutions, HOLOGIC at others. Regions [...] recommendations for prevention of bone loss include: 8110-4539 mg calcium intake per day for adults [...] [place] of Knowledge Evidence - based Summaries. [facility] Education [employer] 2017. Report Dictated on Final Dictating Physician: MD VOGT JAMES Signed Date and Time: 04/13/2021 12:02 pm Signed by: MD VOGT JAMES Transcribed Date and Time: 04/13/2021 12:03 Normal [facility] Comprehensive Metabolic Pane sumeet 12-26-2018 Albumin [Mass/Vol] 4.8 g/dL 3.5 - 5 g/dL [place], [place] ALP [Catalytic activity/Vol] 51 U/L 38 - 126 U/L [place] ALT [Catalytic activity/Vol] 30 U/L 13 - 69 U/L [place] Anion gap [Moles/Vol] 8 mmol/L [place], [place] AST [Catalytic activity/Vol] 25 U/L 15 - 46 U/L [place] Bilirubin Ql (U) 0.4 mg/dL 0.2 - 1.3 mg/dL [place] Calcium [Mass/Vol] 11.3 mg/dL High 8.4 - 10. 4 mg/dL [place] Chloride [Moles/Vol] 108 mmol/L High 98 - 10 7 mmol/L [place] CO2 [Moles/Vol] 24 mmol/L 22 - 30 mmol/L [place] Creatinine [Mass/Vol] 1.23 mg/dL 0.52 - 1.25 mg/dL [place] EGFR IF NonAfrican Guamanian >60.0 >60 mL/min [place] Comment on above: Source- MDRD equatio n with creatinine calibration to IDMS(NKDEP) eGFR not recommended for drug dose adjustment GFR/1.73 sq M predicted among blacks MDRD (S/P/Bld) [Vol rate/Area] mL/min/{1.73_m2} >60 mL/min [place] Glucose [Mass/Vol] 104 mg/dL High 70 - 100 mg/dL [place] Interpretation and review of laboratory results Abnormal [place] Potassium [Moles/Vol] 4.3 mmol/L 3.5 - 5.1 mmol/L [place] Protein [Mass/Vol] 7.7 g/dL 6.3 - 8.2 g/dL [place] Sodium [Moles/Vol] 140 mmol/L 135 - 145 mmol/L [place] Urea nitrogen [Mass/Vol] 19 mg/dL 7 - 20 mg/dL [place] Test Performed by [facility], [address] Creatinine, 24 HR Urineon Creatinine, 24H Ur 1.8 g/(24.h) 1 - 1.8 g/(24.h) [place] Creatinine, Urine 94.3 mg/dL [place] Otheron 12-26-2018 Test [facility] by [facility], [address] MAR[place] [address] POCT calcium ionizedon 12-26 Interpretation and review of laboratory results Abnormal [place] PH, IONIZED CALCIUM 7.36 [place] POC Ionized Calcium 5.30 mg/dL High 4.3 - 5. 2 mg/dL [place] Comment on above: Performed by CLIA ID : [id number] [place], [place] Test Performed by [facility], [address] PTH, Intacton 12-26-2018 Pth Intact 27 pg/mL 15 - 63 pg/mL [place] Test Performed by [facility] [employer] [facility], [address] [place] [address] Prolactinon 12-26-2018 Prolactin 13.7 ng/mL 3.7 - 17.9 ng/mL [place] Test Performed by [facility] [employer] [facility], [address] [place] [address] Sodium, urine, 24 houron Interpretation and review of laboratory results Abnormal [place] Sodium, 24H Ur 238 mmol/(24.h) High 40 - 220 mmol/(24.h) [place] Total Volume 1950 mL [place] T4, Freeon 12-26-2018 Free T4 [Mass/Vol] 0.87 ng/dL 0.78 - 2. 19 ng/dL [place] Test Performed by [facility], [address] , [address] TSH without Reflexon 019 TSH Qn 3.019 u[IU]/mL 0.465 - 4.68 u[IU]/mL [place] Test Performed by [facility], [address] , [address] Vitamin D 25 Hydroxyon 12-26 Vit D, 25-Hydroxy 40 ng/mL 30 - 100 ng/mL [place] Comment on above: Therapy is based on measurement of Total 25-OHD with the following classification levels: Less than 20 ng/mL: Indicative of Vit D deficiency 20-30 ng/mL: Suggests Vit D insufficiency Optimal: Greater than or equal to 30 ng/mL Test performed by [employer] Immunoassay, measuring Total Vitamin D, not individual fractions. Test Performed by [facility], [address] Vital Signs Date Time Vital Sign Value Performing Clinician Faci lity 12-02-2024 13:25-0400 Body height 187.[address] Justice Bailey DO Work Phone: [facility] 12-02-2024 13:25-0400 Body mass index (BMI) [Ratio] 28.8 kg/m2 Dr. Justice Bailey DO Work Phone: [facility] 12-02-2024 13:25-0400 Body weight 102.[address] Justice Bailey DO Work Phone: [facility] 11-09-2024 09:23-0400 Body height 187.[address] Justice Bailey DO Work Phone: [facility] 11-09-2024 09:23-0400 Body mass index (BMI) [Ratio] 28.2 kg/m2 Dr. Justice Bailey DO Work Phone: [facility] 11-09-2024 09:23-0400 Body weight 99.[address] Justice Bailey DO Work Phone: [facility] 10-08-2024 09:03-0400 Body height 187.[address] Justice Bailey DO Work Phone: [facility] 10-08-2024 09:03-0400 Body mass index (BMI) [Ratio] 30.2 kg/m2 Dr. Justice Bailey DO Work Phone: [facility] 10-08-2024 09:03-0400 Body temperature 97.6 [degF] Dr. Justice Bailey DO Work Phone: [facility] 10-08-2024 09:03-0400 Body weight 106.[address] Justice Bailey DO Work Phone: [facility] 10-08-2024 09:03-0400 Diastolic blood pressure 88 mm[Hg] Dr. Justice Bailey DO Work Phone: [facility] 10-08-2024 09:03-0400 Heart rate 90 /min Dr. Justice Bailey DO Work Phone: [facility] 10-08-2024 09:03-0400 Respiratory rate 16 /min Dr. Justice Bailey DO Work Phone: [facility] 10-08-2024 09:03-0400 SaO2% (BldA) [Mass fraction] 94 % Dr. Justice Bailey DO Work Phone: [facility] 10-08-2024 09:03-0400 Systolic blood pressure 138 mm[Hg] Dr. Justice Bailey DO Work Phone: [facility] 10-03-2024 12:33-0400 Diastolic blood pressure 73 mm[Hg] Dr. Justice Bailey DO Work Phone: [facility] 10-03-2024 12:33-0400 Heart rate 70 /min Dr. Justice Bailey DO Work Phone: [facility] 10-03-2024 12:33-0400 Systolic blood pressure 151 mm[Hg] Dr. Justice Bailey DO Work Phone: [facility] 10-03-2024 10:33-0400 Body height 187.[address] Justice Bailey DO Work Phone: [facility] 10-03-2024 10:33-0400 Body mass index (BMI) [Ratio] 30.1 kg/m2 Dr. Justice Bailey DO Work Phone: [facility] 10-03-2024 10:33-0400 Body temperature 97.6 [degF] Dr. Justice Bailey DO Work Phone: [facility] 10-03-2024 10:33-0400 Body weight 106.[address] Justice Bailey DO Work Phone: [facility] 10-03-2024 10:33-0400 Respiratory rate 18 /min Dr. Justice Bailey DO Work Phone: [facility] 10-03-2024 10:33-0400 SaO2% (BldA) [Mass fraction] 98 % Dr. Justice Bailey DO Work Phone: [facility] 08-11-2024 15:31-0400 Body height 187.96 cm Dolly Clarke PA Work Phone: [facility] 08-11-2024 15:31-0400 Body mass index (BMI) [Ratio] 30 kg/m2 Dolly SHAFFER Work Phone: [facility] 08-11-2024 15:31-0400 Body temperature 97.4 [degF] Dolly Clarke PA Work Phone: [facility] 08-11-2024 15:31-0400 Body weight 106.25 kg Dolly Clarke PA Work Phone: [facility] 08-11-2024 15:31-0400 Diastolic blood pressure 60 mm[Hg] Dolly Clarke PA Work Phone: [facility] 08-11-2024 15:31-0400 Heart rate 83 /min Dolly Clarke PA Work Phone: [facility] 08-11-2024 15:31-0400 Respiratory rate 16 /min Dolly Clarke PA Work Phone: [facility] 08-11-2024 15:31-0400 SaO2% (BldA) [Mass fraction] 92 % Dolly Clarke PA Work Phone: [facility] 08-11-2024 15:31-0400 Systolic blood pressure 102 mm[Hg] Dolly Clarke PA Work Phone: [facility] 08-02-2024 10:26-0400 Body temperature 97.8 [degF] Dolly Clarke PA Work Phone: [facility] 08-02-2024 10:26-0400 Diastolic blood pressure 83 mm[Hg] Dolly Clarke PA Work Phone: [facility] 08-02-2024 10:26-0400 Heart rate 66 /min Dolly Clarke PA Work Phone: [facility] 08-02-2024 10:26-0400 Respiratory rate 15 /min Dolly Clarke PA Work Phone: [facility] 08-02-2024 10:26-0400 SaO2% (BldA) [Mass fraction] 97 % Dolly Clarke PA Work Phone: [facility] 08-02-2024 10:26-0400 Systolic blood pressure 125 mm[Hg] Dolly Clarke PA Work Phone: [facility] 08-02-2024 08:47-0400 Body height 187.96 cm Dolly Clarke PA Work Phone: [facility] 08-02-2024 08:47-0400 Body mass index (BMI) [Ratio] 29.9 kg/m2 Dolly Clarke PA Work Phone: [facility] 08-02-2024 08:47-0400 Body weight 105.68 kg Dolly Clarke PA Work Phone: [facility] 07-17-2024 08:15-0400 Body mass index (BMI) [Ratio] 30.2 kg/m2 Dolly Clarke PA Work Phone: [facility] 07-17-2024 08:15-0400 Body weight 106.76 kg Dolly Clarke PA Work Phone: [facility] 07-17-2024 08:15-0400 Diastolic blood pressure 82 mm[Hg] Dolly Clarke PA Work Phone: [facility] 07-17-2024 08:15-0400 Heart rate 70 /min Dolly Clarke PA Work Phone: [facility] 07-17-2024 08:15-0400 SaO2% (BldA) [Mass fraction] 95 % Dolly Clarke PA Work Phone: [facility] 07-17-2024 08:15-0400 Systolic blood pressure 153 mm[Hg] Dolly Clarke PA Work Phone: [facility] 05-28-2024 12:18-0400 Body height 187.96 cm Sanjana Garciao SERVICE ATTENDANT-C Work Phone: [facility] 05-28-2024 12:18-0400 Body temperature 97.9 [degF] Sanjana Garciao SERVICE ATTENDANT-C Work Phone: [facility] 05-28-2024 12:18-0400 Diastolic blood pressure 76 mm[Hg] Sanjana Garciao SERVICE ATTENDANT-C Work Phone: [facility] 05-28-2024 12:18-0400 Heart rate 80 /min Sanjana Garciao SERVICE ATTENDANT-C Work Phone: [facility] 05-28-2024 12:18-0400 SaO2% (BldA) [Mass fraction] 95 % Sanjana Garciao SERVICE ATTENDANT-C Work Phone: [facility] 05-28-2024 12:18-0400 Systolic blood pressure 122 mm[Hg] Sanjana Garciao SERVICE ATTENDANT-C Work Phone: [facility] 03-31-2024 10:21-0500 Body mass index (BMI) [Ratio] 30.5 kg/m2 Sanjanajazzy Gillullo SERVICE ATTENDANT-C Work Phone: [facility] 03-31-2024 10:21-0500 Body temperature 97 [degF] Sanjanajazzy Gillullo SERVICE ATTENDANT-C Work Phone: [facility] 03-31-2024 10:21-0500 Body weight 107.95 kg Sanjanajazzy Gillullo SERVICE ATTENDANT-C Work Phone: [facility] 03-31-2024 10:21-0500 Diastolic blood pressure 68 mm[Hg] Sanjana Ferullo SERVICE ATTENDANT-C Work Phone: [facility] 03-31-2024 10:21-0500 Heart rate 67 /min Sanjana Jairoullo SERVICE ATTENDANT-C Work Phone: [facility] 03-31-2024 10:21-0500 Respiratory rate 16 /min Sanjana Jairoullo SERVICE ATTENDANT-C Work Phone: [facility] 03-31-2024 10:21-0500 SaO2% (BldA) [Mass fraction] 93 % Sanjana Ferullo SERVICE ATTENDANT-C Work Phone: [facility] 03-31-2024 10:21-0500 Systolic blood pressure 124 mm[Hg] Sanjanajazzy Gillullo SERVICE ATTENDANT-C Work Phone: [facility] 03-18-2024 13:30-0500 Body temperature 98.2 [degF] Sanjana Jairoullo SERVICE ATTENDANT-C Work Phone: [facility] 03-18-2024 13:30-0500 Body weight 109.76 kg Sanjana Ferullo SERVICE ATTENDANT-C Work Phone: [facility] 03-18-2024 13:30-0500 Diastolic blood pressure 77 mm[Hg] Sanjana Ferullo SERVICE ATTENDANT-C Work Phone: [facility] 03-18-2024 13:30-0500 Heart rate 76 /min Sanjana Ferullo SERVICE ATTENDANT-C Work Phone: [facility] 03-18-2024 13:30-0500 Respiratory rate 16 /min Sanjana Hale SERVICE ATTENDANT-C Work Phone: [facility] 03-18-2024 13:30-0500 SaO2% (BldA) [Mass fraction] 94 % Sanjana Garciao SERVICE ATTENDANT-C Work Phone: [facility] 03-18-2024 13:30-0500 Systolic blood pressure 138 mm[Hg] Sanjana Garciao SERVICE ATTENDANT-C Work Phone: [facility] 02-25-2024 10:24-0500 Body mass index (BMI) [Ratio] 30.6 kg/m2 Sanjana Garciao SERVICE ATTENDANT-C Work Phone: [facility] 02-25-2024 10:24-0500 Body temperature 98.3 [degF] Sanjana Garciao SERVICE ATTENDANT-C Work Phone: [facility] 02-25-2024 10:24-0500 Body weight 108.12 kg Sanjana Hale SERVICE ATTENDANT-C Work Phone: [facility] 02-25-2024 10:24-0500 Diastolic blood pressure 84 mm[Hg] Sanjana Garciao SERVICE ATTENDANT-C Work Phone: [facility] 02-25-2024 10:24-0500 Heart rate 78 /min Sanjana Hale SERVICE ATTENDANT-C Work Phone: [facility] 02-25-2024 10:24-0500 SaO2% (BldA) [Mass fraction] 96 % Sanjana Garciao SERVICE ATTENDANT-C Work Phone: [facility] 02-25-2024 10:24-0500 Systolic blood pressure 150 mm[Hg] Sanjana Garciao SERVICE ATTENDANT-C Work Phone: [facility] 07-31-2023 09:15-0400 Body height 188 cm Rocio Ruiz MD Work Phone: [facility] 07-31-2023 09:15-0400 Body mass index (BMI) [Ratio] 29.79 kg/m2 Rocio Ruiz MD Work Phone: [facility] 07-31-2023 09:15-0400 Body weight 105.23 kg Rocio Ruiz MD Work Phone: [facility] 07-31-2023 09:15-0400 Diastolic blood pressure 80 mm[Hg] Rocio Ruiz MD Work Phone: [facility] 07-31-2023 09:15-0400 Systolic blood pressure 118 mm[Hg] oRcio Ruiz MD Work Phone: [facility] 06-06-2023 10:56-0400 Body height 187.[address] Ryan Ceja Work Phone: [facility] 06-06-2023 10:56-0400 Body mass index (BMI) [Ratio] 30.4 kg/m2 Dr. Rayn Ceja Work Phone: [facility] 06-06-2023 10:56-0400 Body temperature 98.1 [degF] Dr. Ryan Ceja Work Phone: [facility] 06-06-2023 10:56-0400 Body weight 107.[address] Ryan Ceja Work Phone: [facility] 06-06-2023 10:56-0400 Diastolic blood pressure 80 mm[Hg] Dr. Ryan Ceja Work Phone: [facility] 06-06-2023 10:56-0400 Heart rate 77 /min Dr. Ryan Ceja Work Phone: [facility] 06-06-2023 10:56-0400 Respiratory rate 17 /min Dr. Ryan Ceja Work Phone: [facility] 06-06-2023 10:56-0400 SaO2% (BldA) [Mass fraction] 98 % Dr. Ryan Ceja Work Phone: [facility] 06-06-2023 10:56-0400 Systolic blood pressure 148 mm[Hg] Dr. Ryan Ceja Work Phone: [facility] 05-09-2023 15:00-0400 Body height 187.[address] Ryan Ceja Work Phone: [facility] 05-09-2023 15:00-0400 Body mass index (BMI) [Ratio] 30.8 kg/m2 Dr. Ryan Ceja Work Phone: [facility] 05-09-2023 15:00-0400 Body temperature 98.8 [degF] Dr. Ryan Ceja Work Phone: [facility] 05-09-2023 15:00-0400 Body weight 108.[address] Ryan Ceja Work Phone: [facility] 05-09-2023 15:00-0400 Diastolic blood pressure 62 mm[Hg] Dr. Ryan Ceja Work Phone: [facility] 05-09-2023 15:00-0400 Heart rate 74 /min Dr. Ryan Ceja Work Phone: [facility] 05-09-2023 15:00-0400 Respiratory rate 18 /min Dr. Ryan Ceja Work Phone: [facility] 05-09-2023 15:00-0400 SaO2% (BldA) [Mass fraction] 95 % Dr. Ryan Ceja Work Phone: [facility] 05-09-2023 15:00-0400 Systolic blood pressure 112 mm[Hg] Dr. Ryan Ceja Work Phone: [facility] 03-21-2023 08:44-0500 Body height 187.[address] Ryan Ceja Work Phone: [facility] 03-21-2023 08:44-0500 Body mass index (BMI) [Ratio] 30.4 kg/m2 Dr. Ryan Ceja Work Phone: [facility] 03-21-2023 08:44-0500 Body temperature 97.2 [degF] Dr. Ryan Ceja Work Phone: [facility] 03-21-2023 08:44-0500 Body weight 107.[address] Ryan Ceja Work Phone: [facility] 03-21-2023 08:44-0500 Diastolic blood pressure 60 mm[Hg] Dr. Ryan Ceja Work Phone: [facility] 03-21-2023 08:44-0500 Heart rate 84 /min Dr. Ryan Ceja Work Phone: [facility] 03-21-2023 08:44-0500 Respiratory rate 16 /min Dr. Ryan Ceja Work Phone: [facility] 03-21-2023 08:44-0500 SaO2% (BldA) [Mass fraction] 98 % Dr. Ryan Ceja Work Phone: [facility] 03-21-2023 08:44-0500 Systolic blood pressure 138 mm[Hg] Dr. Ryan Ceja Work Phone: [facility] 03-06-2023 14:40-0500 Diastolic blood pressure 79 mm[Hg] Dr. Ryan Ceja Work Phone: [facility] 03-06-2023 14:40-0500 Systolic blood pressure 128 mm[Hg] Dr. Ryan Ceja Work Phone: [facility] 03-06-2023 14:19-0500 Body temperature 98 [degF] Dr. Ryan Ceja Work Phone: [facility] 03-06-2023 14:19-0500 Body weight 107.[address] Ryan Ceja Work Phone: [facility] 03-06-2023 14:19-0500 Heart rate 94 /min Dr. Ryan Ceja Work Phone: [facility] 03-06-2023 14:19-0500 Respiratory rate 16 /min Dr. Ryan Ceja Work Phone: [facility] 03-06-2023 14:19-0500 SaO2% (BldA) [Mass fraction] 98 % Dr. Ryan Ceja Work Phone: [facility] 02-20-2023 10:31-0500 Body temperature 98.4 [degF] Dr. Ryan Ceja Work Phone: [facility] 02-20-2023 10:31-0500 Body weight 109.[address] Ryan Ceja Work Phone: [facility] 02-20-2023 10:31-0500 Diastolic blood pressure 88 mm[Hg] Dr. Ryan Ceja Work Phone: [facility] 02-20-2023 10:31-0500 Heart rate 83 /min Dr. Ryan Ceja Work Phone: [facility] 02-20-2023 10:31-0500 Respiratory rate 16 /min Dr. Ryan Ceja Work Phone: [facility] 02-20-2023 10:31-0500 SaO2% (BldA) [Mass fraction] 97 % Dr. Ryan Ceja Work Phone: [facility] 02-20-2023 10:31-0500 Systolic blood pressure 144 mm[Hg] Dr. Ryan Ceja Work Phone: [facility] 02-13-2023 16:20-0500 Body temperature 97.8 [degF] Dr. Ryan Ceja Work Phone: [facility] 02-13-2023 16:20-0500 Diastolic blood pressure 68 mm[Hg] Dr. Ryan Ceja Work Phone: [facility] 02-13-2023 16:20-0500 Heart rate 60 /min Dr. Ryan Ceja Work Phone: [facility] 02-13-2023 16:20-0500 Respiratory rate 18 /min Dr. Ryan Ceja Work Phone: [facility] 02-13-2023 16:20-0500 SaO2% (BldA) [Mass fraction] 99 % Dr. Ryan Ceja Work Phone: [facility] 02-13-2023 16:20-0500 Systolic blood pressure 125 mm[Hg] Dr. Ryan Ceja Work Phone: [facility] 02-12-2023 06:38-0500 Body height 187.[address] Ryan Ceja Work Phone: [facility] 02-12-2023 06:38-0500 Body mass index (BMI) [Ratio] 31.1 kg/m2 Dr. Ryan Ceja Work Phone: [facility] 02-12-2023 06:38-0500 Body weight [address] Ryan Ceja Work Phone: [facility] 01-31-2023 14:32-0500 Body height 187.[address] Ryan Ceja Work Phone: [facility] 01-31-2023 14:32-0500 Body mass index (BMI) [Ratio] 30.7 kg/m2 Dr. Ryan Ceja Work Phone: [facility] 01-31-2023 14:32-0500 Body temperature 98.2 [degF] Dr. Ryan Ceja Work Phone: [facility] 01-31-2023 14:32-0500 Body weight 108.[address] Ryan Ceja Work Phone: [facility] 01-31-2023 14:32-0500 Diastolic blood pressure 74 mm[Hg] Dr. Ryan Ceja Work Phone: [facility] 01-31-2023 14:32-0500 Heart rate 73 /min Dr. Ryan Ceja Work Phone: [facility] 01-31-2023 14:32-0500 Respiratory rate 18 /min Dr. Ryan Ceja Work Phone: [facility] 01-31-2023 14:32-0500 SaO2% (BldA) [Mass fraction] 97 % Dr. Ryan Ceja Work Phone: [facility] 01-31-2023 14:32-0500 Systolic blood pressure 123 mm[Hg] Dr. Ryan Ceja Work Phone: [facility] 01-02-2023 10:40-0500 Body height 188 cm Rocio Ruiz MD Work Phone: [facility] 01-02-2023 10:40-0500 Body mass index (BMI) [Ratio] 31.2 kg/m2 Rocio Ruiz MD Work Phone: [facility] 01-02-2023 10:40-0500 Body weight 110.22 kg Rocio Ruiz MD Work Phone: [facility] [employer] 01-02-2023 10:40-0500 Diastolic blood pressure 62 mm[Hg] Rocio Ruiz MD Work Phone: [facility] [employer] 01-02-2023 10:40-0500 Heart rate 80 /min Rocio Ruiz MD Work Phone: [facility] 01-02-2023 10:40-0500 Systolic blood pressure 122 mm[Hg] Rocio Ruiz MD Work Phone: [facility] 01-02-2023 08:40-0500 Body height 188 cm Ziggy Arauz MD Work Phone: [facility] 01-02-2023 08:40-0500 Body mass index (BMI) [Ratio] 30.17 kg/m2 Ziggy Arauz MD Work Phone: [facility] 01-02-2023 08:40-0500 Body weight 106.59 kg Ziggy Arauz MD Work Phone: [facility] 12-25-2022 19:57-0400 Diastolic blood pressure 74 mm[Hg] Pacheco Ortiz MD Work Phone: [facility] 12-25-2022 19:57-0400 Heart rate 83 /min Pacheco Ortiz MD Work Phone: [facility] 12-25-2022 19:57-0400 Respiratory rate 20 /min Pacheco Ortiz MD Work Phone: [facility] 12-25-2022 19:57-0400 SaO2% (BldA) [Mass fraction] 96 % Pacheco Ortiz MD Work Phone: [facility] 12-25-2022 19:57-0400 Systolic blood pressure 154 mm[Hg] Pacheco Ortiz MD Work Phone: [facility] 12-25-2022 18:53-0400 Body height 188 cm Pacheco Ortiz MD Work Phone: [facility] 12-25-2022 18:53-0400 Body mass index (BMI) [Ratio] 30.94 kg/m2 Pacheco Ortiz MD Work Phone: [facility] 12-25-2022 18:53-0400 Body temperature 98.01 [degF] Pacheco Ortiz MD Work Phone: [facility] 12-25-2022 18:53-0400 Body weight 109.32 kg Pacheco Ortiz MD Work Phone: [facility] 12-25-2022 16:45-0400 Diastolic blood pressure 80 mm[Hg] Ziggy Arauz MD Work Phone: [facility] 12-25-2022 16:45-0400 Heart rate 66 /min Ziggy Arauz MD Work Phone: [facility] 12-25-2022 16:45-0400 Respiratory rate 16 /min Ziggy Arauz MD Work Phone: [facility] [employer] 12-25-2022 16:45-0400 SaO2% (BldA) [Mass fraction] 96 % Ziggy Arauz MD Work Phone: [employer] 12-25-2022 16:45-0400 Systolic blood pressure 132 mm[Hg] Ziggy Arauz MD Work Phone: [facility] [employer] 12-25-2022 08:28-0400 Body height 188 cm Ziggy Arauz MD Work Phone: [employer] 12-25-2022 08:28-0400 Body mass index (BMI) [Ratio] 30.94 kg/m2 Ziggy Arauz MD Work Phone: [employer] 12-25-2022 08:28-0400 Body temperature 97 [degF] Ziggy Arauz MD Work Phone: [facility] [employer] 12-25-2022 08:28-0400 Body weight 109.32 kg Ziggy Arauz MD Work Phone: [facility] [employer] 12-22-2022 10:17-0400 Diastolic blood pressure 85 mm[Hg] Pacheco Negron MD Work Phone: [facility] [employer] 12-22-2022 10:17-0400 Heart rate 50 /min Pacheco Negron MD Work Phone: [employer] 12-22-2022 10:17-0400 Respiratory rate 16 /min Pacheco Negron MD Work Phone: [employer] 12-22-2022 10:17-0400 SaO2% (BldA) [Mass fraction] 98 % Pachceo Negron MD Work Phone: [facility] [employer] 12-22-2022 10:17-0400 Systolic blood pressure 148 mm[Hg] Pacheco Negron MD Work Phone: [employer] 12-22-2022 08:04-0400 Body mass index (BMI) [Ratio] 30.94 kg/m2 Pacheco Negron MD Work Phone: [facility] [employer] 12-22-2022 08:04-0400 Body temperature 97.2 [degF] Pacheco Negron MD Work Phone: [facility] [employer] 12-22-2022 08:04-0400 Body weight 109.32 kg Pacheco Negron MD Work Phone: [employer] 12-07-2022 15:23-0400 Body temperature 97.59 [degF] Yolanda Voll DO Work Phone: [employer] 12-07-2022 15:23-0400 Diastolic blood pressure 64 mm[Hg] Yolanda Voll DO Work Phone: [employer] 12-07-2022 15:23-0400 Heart rate 62 /min Yolanda Voll DO Work Phone: [employer] 12-07-2022 15:23-0400 Respiratory rate 16 /min Yolanda Voll DO Work Phone: [employer] 12-07-2022 15:23-0400 SaO2% (BldA) [Mass fraction] 95 % Yolanda Voll DO Work Phone: [facility] [employer] 12-07-2022 15:23-0400 Systolic blood pressure 110 mm[Hg] Yolanda Voll DO Work Phone: [employer] 12-07-2022 09:19-0400 Body height 188 cm Yolanda Voll DO Work Phone: [employer] 12-07-2022 09:19-0400 Body mass index (BMI) [Ratio] 30.81 kg/m2 Yolanda Voll DO Work Phone: [employer] 12-07-2022 09:19-0400 Body weight 108.86 kg Yolanda Voll DO Work Phone: [employer] 11-14-2022 10:54-0400 Body mass index (BMI) [Ratio] 31.3 kg/m2 Cheryl Basilio MD Work Phone: [employer] 11-14-2022 10:54-0400 Body weight 110.59 kg Cheryl Basilio MD Work Phone: [employer] 11-14-2022 10:54-0400 Diastolic blood pressure 84 mm[Hg] Cheryl Basilio MD Work Phone: [employer] 11-14-2022 10:54-0400 Heart rate 91 /min Cheryl Basilio MD Work Phone: [employer] 11-14-2022 10:54-0400 SaO2% (BldA) [Mass fraction] 94 % Cheryl Basilio MD Work Phone: [employer] 11-14-2022 10:54-0400 Systolic blood pressure 137 mm[Hg] Cheryl Basilio MD Work Phone: [employer] 10-16-2022 07:25-0400 Body temperature 98.2 [degF] Natacha Skiffey DO Work Phone: [employer] 10-16-2022 07:25-0400 Diastolic blood pressure 92 mm[Hg] Natacha Skiffey DO Work Phone: [employer] 10-16-2022 07:25-0400 Heart rate 68 /min Natacha Skiffey DO Work Phone: [employer] 10-16-2022 07:25-0400 Respiratory rate 17 /min Natacha Skiffey DO Work Phone: [employer] 10-16-2022 07:25-0400 SaO2% (BldA) [Mass fraction] 97 % Natacha Skiffey DO Work Phone: [employer] 10-16-2022 07:25-0400 Systolic blood pressure 148 mm[Hg] Natacha Skiffey DO Work Phone: [employer] 10-12-2022 16:15-0400 Diastolic blood pressure 72 mm[Hg] Pacheco Negron MD Work Phone: [employer] 10-12-2022 16:15-0400 Respiratory rate 16 /min Pacheco Negron MD Work Phone: [employer] 10-12-2022 16:15-0400 SaO2% (BldA) [Mass fraction] 98 % Pacheco Negron MD Work Phone: [employer] 10-12-2022 16:15-0400 Systolic blood pressure 138 mm[Hg] Pacheco Negron MD Work Phone: [employer] 10-12-2022 13:36-0400 Body mass index (BMI) [Ratio] 30.17 kg/m2 Pacheco Negron MD Work Phone: [employer] 10-12-2022 13:36-0400 Body temperature 97.81 [degF] Pacheco Negron MD Work Phone: [facility] [employer] 10-12-2022 13:36-0400 Body weight 106.59 kg Pacheco Negron MD Work Phone: [employer] 10-12-2022 13:36-0400 Heart rate 91 /min Pacheco Negron MD Work Phone: [employer] 10-11-2022 08:27-0400 Body height 188 cm Cheryl Basilio MD Work Phone: [employer] 10-11-2022 08:27-0400 Body mass index (BMI) [Ratio] 29.89 kg/m2 Cheryl Basilio MD Work Phone: [employer] 10-11-2022 08:27-0400 Body weight 105.6 kg Cheryl Basilio MD Work Phone: [employer] 10-11-2022 08:27-0400 Diastolic blood pressure 68 mm[Hg] Cheryl Basilio MD Work Phone: [employer] 10-11-2022 08:27-0400 Heart rate 76 /min Cheryl Basilio MD Work Phone: [employer] 10-11-2022 08:27-0400 SaO2% (BldA) [Mass fraction] 93 % Cheryl Basilio MD Work Phone: [employer] 10-11-2022 08:27-0400 Systolic blood pressure 122 mm[Hg] Cheryl Basilio MD Work Phone: [employer] 10-10-2022 12:42-0400 Body height 188 cm Donna Roberts DO Work Phone: [employer] 10-10-2022 12:42-0400 Body mass index (BMI) [Ratio] 30.15 kg/m2 Donna Roberts DO Work Phone: [employer] 10-10-2022 12:42-0400 Body weight 106.5 kg Donna Roberts DO Work Phone: [employer] 10-10-2022 12:42-0400 Diastolic blood pressure 74 mm[Hg] Donna Roberts DO Work Phone: [employer] 10-10-2022 12:42-0400 Heart rate 78 /min Donna Roberts DO Work Phone: [employer] 10-10-2022 12:42-0400 Respiratory rate 18 /min Donna Roberts DO Work Phone: [employer] 10-10-2022 12:42-0400 SaO2% (BldA) [Mass fraction] 93 % Donna Roberts DO Work Phone: [employer] Comment on above: Room air at rest 10-10-2022 12:42-0400 Systolic blood pressure 108 mm[Hg] Donna Roberts DO Work Phone: [employer] 09-13-2022 11:46-0400 Body mass index (BMI) [Ratio] 30.53 kg/m2 Chana Iqraenthal CHAIRMAN & CEO - AUDIO VISUAL DIRECTOR Work Phone: [employer] 09-13-2022 11:46-0400 Body temperature 98.2 [degF] Chana Bridenthal CHAIRMAN & CEO - AUDIO VISUAL DIRECTOR Work Phone: [employer] 09-13-2022 11:46-0400 Body weight 107.86 kg Chana Iqraenthal CHAIRMAN & CEO - AUDIO VISUAL DIRECTOR Work Phone: [employer] 09-13-2022 11:46-0400 Diastolic blood pressure 80 mm[Hg] Chana Iqraenthal CHAIRMAN & CEO - AUDIO VISUAL DIRECTOR Work Phone: [employer] 09-13-2022 11:46-0400 Heart rate 68 /min Chanaaura Escalonaenthal CHAIRMAN & CEO - AUDIO VISUAL DIRECTOR Work Phone: [facility] [employer] 09-13-2022 11:46-0400 Respiratory rate 20 /min Chanaaura Escalonaenthal CHAIRMAN & CEO - AUDIO VISUAL DIRECTOR Work Phone: [facility] [employer] 09-13-2022 11:46-0400 Systolic blood pressure 138 mm[Hg] Chana Bridenthal CHAIRMAN & CEO - AUDIO VISUAL DIRECTOR Work Phone: [facility] [employer] 08-17-2022 08:17-0400 Body height 188 cm Tayler Rivas CHAIRMAN & CEO - AUDIO VISUAL DIRECTOR Work Phone: [facility] [employer] 08-17-2022 08:17-0400 Body mass index (BMI) [Ratio] 30.3 kg/m2 Tayler Rivas CHAIRMAN & CEO - AUDIO VISUAL DIRECTOR Work Phone: [facility] [employer] 08-17-2022 08:17-0400 Body weight 107.05 kg Tayler Rivas CHAIRMAN & CEO - AUDIO VISUAL DIRECTOR Work Phone: [facility] [employer] 08-17-2022 08:17-0400 Diastolic blood pressure 76 mm[Hg] Tayler Rob CHAIRMAN & CEO - AUDIO VISUAL DIRECTOR Work Phone: [facility] [employer] 08-17-2022 08:17-0400 Heart rate 59 /min Tayler Rob CHAIRMAN & CEO - AUDIO VISUAL DIRECTOR Work Phone: [facility] [employer] 08-17-2022 08:17-0400 SaO2% (BldA) [Mass fraction] 98 % Tayler Rivas CHAIRMAN & CEO - AUDIO VISUAL DIRECTOR Work Phone: [facility] [employer] 08-17-2022 08:17-0400 Systolic blood pressure 122 mm[Hg] Tayler Rivas CHAIRMAN & CEO - AUDIO VISUAL DIRECTOR Work Phone: [facility] [employer] 06-19-2022 13:48-0400 Body height 188 cm Leanne Perales MD Work Phone: [facility] [employer] 06-19-2022 13:48-0400 Body mass index (BMI) [Ratio] 30.66 kg/m2 Leanne Perales MD Work Phone: [facility] [employer] 06-19-2022 13:48-0400 Body weight 108.32 kg Leanne Perales MD Work Phone: [employer] 06-19-2022 13:48-0400 Diastolic blood pressure 82 mm[Hg] Leanne Perales MD Work Phone: [employer] 06-19-2022 13:48-0400 Heart rate 75 /min Leanne Perales MD Work Phone: [employer] 06-19-2022 13:48-0400 Systolic blood pressure 139 mm[Hg] Leanne Perales MD Work Phone: [employer] 05-17-2022 11:46-0400 Diastolic blood pressure 67 mm[Hg] Leanne Perales MD Work Phone: [employer] 05-17-2022 11:46-0400 Heart rate 67 /min Leanne Perales MD Work Phone: [employer] 05-17-2022 11:46-0400 Respiratory rate 20 /min Leanne Perales MD Work Phone: [employer] 05-17-2022 11:46-0400 Systolic blood pressure 122 mm[Hg] Leanne Perales MD Work Phone: [employer] 03-06-2022 14:46-0500 Body height 188 cm Leanne Perales MD Work Phone: [employer] 03-06-2022 14:46-0500 Body mass index (BMI) [Ratio] 30.4 kg/m2 Leanne Perales MD Work Phone: [employer] 03-06-2022 14:46-0500 Body weight 107.41 kg Leanne Perales MD Work Phone: [employer] 03-06-2022 14:46-0500 Diastolic blood pressure 72 mm[Hg] Leanne Perales MD Work Phone: [employer] 03-06-2022 14:46-0500 Heart rate 74 /min Leanne Perales MD Work Phone: [facility] [employer] 03-06-2022 14:46-0500 Systolic blood pressure 120 mm[Hg] Leanne Perales MD Work Phone: [facility] [employer] 02-27-2022 14:16-0500 Body temperature 97.7 [degF] Chana Bridenthal CHAIRMAN & CEO - AUDIO VISUAL DIRECTOR Work Phone: [facility] [employer] 02-27-2022 14:16-0500 Diastolic blood pressure 80 mm[Hg] Chana Bridenthal CHAIRMAN & CEO - AUDIO VISUAL DIRECTOR Work Phone: [facility] [employer] 02-27-2022 14:16-0500 Systolic blood pressure 138 mm[Hg] Chana Bridenthal CHAIRMAN & CEO - AUDIO VISUAL DIRECTOR Work Phone: [facility] [employer] 02-27-2022 13:35-0500 Body mass index (BMI) [Ratio] 30.17 kg/m2 Chana Bridenthal CHAIRMAN & CEO - AUDIO VISUAL DIRECTOR Work Phone: [facility] [employer] 02-27-2022 13:35-0500 Body weight 106.59 kg Chana Bridenthal CHAIRMAN & CEO - AUDIO VISUAL DIRECTOR Work Phone: [facility] [employer] 02-27-2022 13:35-0500 Heart rate 69 /min Chana Bridenthal CHAIRMAN & CEO - AUDIO VISUAL DIRECTOR Work Phone: [facility] [employer] 12-05-2021 20:43-0400 Body temperature 98.1 [degF] Barry eLon MD Work Phone: [facility] 12-05-2021 20:43-0400 Diastolic blood pressure 85 mm[Hg] Barry Leon MD Work Phone: [facility] 12-05-2021 20:43-0400 Heart rate 68 /min Barry Leon MD Work Phone: [facility] 12-05-2021 20:43-0400 Respiratory rate 18 /min Barry Leon MD Work Phone: [facility] 12-05-2021 20:43-0400 SaO2% (BldA) [Mass fraction] 94 % Barry Leon MD Work Phone: [facility] 12-05-2021 20:43-0400 Systolic blood pressure 145 mm[Hg] Barry Leon MD Work Phone: [facility] 12-01-2021 10:17-0400 Body height 188 cm Barry Leon MD Work Phone: [facility] 12-01-2021 10:17-0400 Body mass index (BMI) [Ratio] 30.3 kg/m2 Barry Leon MD Work Phone: [facility] 12-01-2021 10:17-0400 Body weight 107.05 kg Barry Leon MD Work Phone: [facility] 11-27-2021 23:28-0400 Diastolic blood pressure 78 mm[Hg] Tc Spence MD Work Phone: [facility] 11-27-2021 23:28-0400 Heart rate 83 /min Tc Spence MD Work Phone: [facility] 11-27-2021 23:28-0400 Respiratory rate 16 /min Tc Spence MD Work Phone: [facility] 11-27-2021 23:28-0400 SaO2% (BldA) [Mass fraction] 97 % Tc Spence MD Work Phone: [facility] 11-27-2021 23:28-0400 Systolic blood pressure 127 mm[Hg] Tc Spence MD Work Phone: [facility] 11-27-2021 20:34-0400 Body height 188 cm Tc Spence MD Work Phone: [facility] 11-27-2021 20:34-0400 Body mass index (BMI) [Ratio] 29.53 kg/m2 Tc Spence MD Work Phone: [facility] 11-27-2021 20:34-0400 Body temperature 98.2 [degF] Tc Spence MD Work Phone: [facility] 11-27-2021 20:34-0400 Body weight 104.33 kg Tc Spence MD Work Phone: [facility] Encounters Encounter Date Encounter Type Care Provider Facility Start: 12-02-2024 End: 12-02-2024 Patient encounter procedure Sherry SHAFFER -[facility] Work Phone: Start: 12-02-2024 End: 12-02-[address] Justice Bailey DO Work Phone: -[facility] Start: 11-23-2024 Patient encounter procedure Sherry SHAFFER -[facility] Work Phone: Start: 11-23-2024 End: 11-23-2024 ambulatory Sherry Venegas Facility:[facility] Start: 11-09-2024 End: 11-09-[address] Carl Mccullough MD -[facility] Start: 11-09-2024 End: 11-09-[address] Justice Bailey DO Work Phone: -[facility] Start: 10-09-2024 End: 10-09-[address] Justice Bailey DO Work Phone: [facility] [place] Start: 10-09-2024 End: 10-09-2024 Patient encounter procedure Xiomara Johnston SERVICE ATTENDANT-C -[facility] Work Phone: Start: 10-08-2024 End: 10-08-2024 Patient encounter procedure Xiomara Johnston SERVICE ATTENDANT-C -[facility] Work Phone: Start: 10-08-2024 End: 10-09-[address] Justice Bailey DO Work Phone: [facility] Start: 10-03-2024 End: 10-03-2024 Emergency department patient visit Dr. Justice Bailey DO Work Phone: -Emergency Department Work Phone: Start: 08-11-2024 End: 08-11-[address] Justice Issa DO -[facility] Work Phone: Start: 08-11-2024 End: 08-11-2024 ambulatory Dolly SHAFFER Work Phone: [facility] Work Phone: Start: 08-02-2024 End: 08-02-2024 Emergency department patient visit Dolly SHAFFER Work Phone: -[facility]gency Department Work Phone: Start: 07-17-2024 End: 07-17-[address] Franky Brewer MD -[facility] Work Phone: Start: 07-17-2024 End: 07-17-2024 ambulatory Justice Bailey [facility] Start: 07-01-2024 Non-patient / Non-visit Estefany Gonzalez MA -[facility] Work Phone: Start: 07-01-2024 ambulatory Justice Bailey Facilit y:[facility] Start: 05-28-2024 End: 05-28-2024 Patient encounter procedure Stanislaw SHAFFER -[facility] Work Phone: Start: 05-28-2024 End: 05-28-2024 ambulatory Sanjana Hale SERVICE ATTENDANT-C Work Phone: [facility] Work Phone: Start: 05-28-2024 End: 05-28-2024 ambulatory Stanislaw SHAFFER Facility:[facility] Start: 05-14-2024 Non-patient / Non-visit Yolanda SHAFFER [facility] Start: 05-14-2024 ambulatory Justice Bailey Facilit y:[facility] Start: 04-20-2024 End: 04-20-2024 ambulatory SANJANA HALE CHAIRMAN & CEO-AUDIO VISUAL DIRECTOR Facility:[facility] Start: 04-20-2024 End: 04-20-2024 Patient encounter procedure BASIM RAMSEY MD [facility] Start: 04-13-2024 ambulatory Ryan Ceja Facility:[facility] Start: 04-13-2024 Non-patient / Non-visit Dr. Ryan adams MD -[facility] Start: 04-13-2024 End: 04-13-2024 Patient encounter procedure Dolly SHAFFER -[facility] Work Phone: Start: 04-13-2024 End: 04-13-2024 ambulatory Justice Bailey Facility:[facility] Start: 03-31-2024 End: 03-31-[address] Justice Issa DO -[facility] Work Phone: Start: 03-31-2024 End: 03-31-2024 ambulatory Justice Bailey Facility:[facility] Start: 03-18-2024 End: 03-18-2024 Patient encounter procedure Dolly SHAFFER -[facility] Work Phone: Start: 03-18-2024 End: 03-18-2024 ambulatory Sanjanajazzy Gillvaibhav Facility:[facility] Start: 02-25-2024 End: 02-25-2024 Patient encounter procedure David SHAFFER -[facility] Work Phone: Start: 02-25-2024 End: 02-25-2024 ambulatory Sanjana Jairovaibhav Facility:[facility] Start: 01-03-2024 End: 01-03-2024 ambulatory BASIM RAMSEY MD Facility:[facility] Start: 01-03-2024 End: 01-03-2024 Patient encounter procedure BASIM RAMSEY MD [facility] Start: 12-23-2023 End: 12-23-2023 ambulatory Sanjana Jairovaibhav Facility:[facility] Start: 09-16-2023 End: 09-16-2023 Subsequent hospital visit by physician Rocio Ruiz MD Work Phone: [facility] Comment on above: Pituitary adenoma (H CC) Start: 09-16-2023 End: 09-16-2023 ambulatory ROCIO RUIZ [facility] Start: 08-01-2023 Telephone encounter Rocio Ruiz MD Work Phone: [facility] Comment on above: Results Start: 07-31-2023 End: 07-31-2023 Office outpatient visit 25 minutes Rocio Ruiz MD Work Phone: [facility] Comment on above: Pituitary adenoma (H CC) (Primary Dx); Hypercalcemia; 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; Hypogonadotropic hypogonadism (HCC) Start: 07-31-2023 End: 07-31-2023 ambulatory SILVESTRE SEXTON [facility] Start: 06-21-2023 End: 06-21-2023 ambulatory SERVICE ATTENDANT-C Sanjanajazzy Garciao Work Phone: [facility] Work Phone: Start: 06-21-2023 End: 06-21-2023 Patient encounter procedure SERVICE ATTENDANT-C Sanjanajazzy Gillullo Work Phone: [facility]-Cat Scan, [facility] Work Phone: Start: 06-19-2023 Telephone encounter Adrienelier Alejandra LOAIZA Work Phone: [facility] Start: 06-18-2023 End: 06-18-2023 ambulatory SERVICE ATTENDANT-C Sanjana Jairoullo Work Phone: [facility] Work Phone: Start: 06-18-2023 End: 06-18-2023 Patient encounter procedure SERVICE ATTENDANT-C Sanjana Ferullo Work Phone: [facility]-Ultrasound, [facility] Work Phone: Start: 06-10-2023 End: 06-10-2023 ambulatory SERVICE ATTENDANT-C Sanjana Ferullo Work Phone: [facility] Work Phone: Start: 06-10-2023 End: 06-10-[address] Ryan Ceja Work Phone: [facility] [facility] Work Phone: Start: 06-06-2023 End: 06-06-[address] Ryan Ceja Work Phone: [facility] Work Phone: Start: 06-06-2023 End: 06-06-[address] Ryan Ceja Work Phone: [facility] Internal Medicine Work Phone: Start: 05-28-2023 End: 05-28-[address] Ryan Ceja Work Phone: [facility] Work Phone: Start: 05-28-2023 End: 05-28-[address] Ryan Ceja Work Phone: [facility] Internal Medicine Work Phone: Start: 05-09-2023 End: 05-09-[address] Ryan Ceja Work Phone: [facility] Work Phone: Start: 05-09-2023 End: 05-09-[address] Ryan Ceja Work Phone: [facility], Specimen Work Phone: Start: 05-09-2023 End: 05-09-[address] Ryan Ceja Work Phone: [facility] Internal Medicine Work Phone: Start: 04-21-2023 Refill Isa Dubois er SERVICE ATTENDANT Work Phone: [facility] Internal Medicine Start: 04-01-2023 Refill Isa Dubois er SERVICE ATTENDANT Work Phone: [facility] Internal Medicine Start: 03-21-2023 End: 03-21-[address] Ryan Ceja Work Phone: [facility] Work Phone: Start: 03-21-2023 End: 03-21-[address] Ryan Ceja Work Phone: [facility] Start: 03-21-2023 End: 03-21-[address] Ryan Ceja Work Phone: [facility] Internal Medicine Work Phone: Start: 03-06-2023 End: 03-06-[address] Ryan Ceja Work Phone: [facility] Vascular Surgery Work Phone: Start: 02-20-2023 End: 02-20-[address] Ryan Ceja Work Phone: [facility] Vascular Surgery Work Phone: Start: 02-13-2023 Non-patient / Non-visit Dr. Kelvin Ceja Work Phone: [facility] Start: 02-12-2023 Non-patient / Non-visit Dr. Kelvin Ceja Work Phone: [facility] Start: 02-12-2023 End: 02-13-2023 Evaluation and management of inpatient Dr. Ryan Ceja Work Phone: [facility] Work Phone: Start: 02-12-2023 End: 02-13-[address] Ryan Ceja Work Phone: [facility] Work Phone: Start: 02-07-2023 End: 02-07-2023 Non-patient / Non-visit Dr. Ryan Ceja Work Phone: [facility] Work Phone: Start: 02-07-2023 End: 02-07-[address] Ryan Ceja Work Phone: [facility] Work Phone: Start: 02-07-2023 End: 02-07-[address] Ryan Ceja Work Phone: [facility] Work Phone: Start: 02-05-2023 Non-patient / Non-visit Dr. Kelvin Ceja Work Phone: [facility] Start: 02-05-2023 End: 02-05-[address] Ryan Ceja Work Phone: [facility] Work Phone: Start: 02-05-2023 End: 02-05-[address] Ryan Ceja Work Phone: [facility] Work Phone: Start: 01-31-2023 End: 01-31-[address] Ryan Ceja Work Phone: [facility] Vascular Surgery Work Phone: Start: 01-30-2023 Refill Cheryl centeno MD Work Phone: [facility] Internal Medicine Start: 01-25-2023 Telephone encounter Rocio Ruiz MD Work Phone: [facility] Endocrinology Comment on above: To Dr Ruiz Start: 01-04-2023 Telephone encounter Rocio Ruiz MD Work Phone: [facility] Endocrinology Comment on above: Medication Problem Start: 01-03-2023 End: 01-03-2023 ambulatory ROCIO RUIZ [facility] Start: 01-02-2023 Telephone encounter Daphne Frausto [facility] Endocrinology Comment on above: Jayson Lowry refuses to fill script Start: 01-02-2023 End: 01-02-2023 Office outpatient visit 25 minutes Rocio Ruiz MD Work Phone: [facility] Endocrinology Comment on above: Macroprolactinoma (H CC) (Primary Dx); Pituitary adenoma (HCC); 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; Hypercalcemia Start: 01-02-2023 End: 01-02-2023 ambulatory ROCIO BARAHONAOHARCELIA [facility] Start: 01-02-2023 End: 01-02-2023 Office outpatient visit 15 minutes Ziggy Arauz MD Work Phone: [facility] Vascular Surgery Comment on above: Chronic deep vein th rombosis (DVT) of iliofemoral vein (HCC) (Primary Dx) Start: 01-02-2023 End: 01-02-2023 [facility] Start: 12-25-2022 End: 12-25-2022 Emergency department patient visit Pacheco Ortiz MD Work Phone: [facility] Comment on above: Bleeding (Primary Dx ) Start: 12-25-2022 End: 12-25-2022 ambulatory [facility] Start: 12-25-2022 End: 12-25-2022 Subsequent hospital visit by physician Ziggy Arauz MD Work Phone: [facility] MAIN OR Comment on above: Sebaceous cyst of le ft eyelid (Primary Dx) Start: 12-22-2022 ambulatory [facility] Communication Start: 12-22-2022 Patient encounter procedure Farzana Eid Clinical Communication Start: 12-22-2022 End: 12-22-2022 Emergency department patient visit Pacheco Negron MD Work Phone: [facility] Comment on above: Acute right flank pa in (Primary Dx) Start: 12-21-2022 End: 12-21-2022 ambulatory [facility] Start: 12-21-2022 End: 12-21-2022 Subsequent hospital visit by physician Cheryl Basilio MD Work Phone: [facility] X-ray Imaging Comment on above: Right flank pain Start: 12-21-2022 End: 12-21-2022 ambulatory [facility] Start: 12-17-2022 Telephone encounter Dat Talbot RN [facility] Clinical Communication Comment on above: Advice Only Start: 12-17-2022 End: 12-17-2022 ambulatory [facility] Start: 12-13-2022 End: 12-13-2022 ambulatory [facility] Start: 12-13-2022 End: 12-13-2022 Encounter for other preprocedural examination [facility] Start: 12-12-2022 ambulatory Aure Deglado CHAIRMAN & CEO - AUDIO VISUAL DIRECTOR Work Phone: [facility] Vascular Center Start: 12-11-2022 End: 12-11-2022 Subsequent hospital visit by physician Ziggy Arauz MD Work Phone: [facility] Vascular Lab Comment on above: Arrived Start: 12-11-2022 End: 12-11-2022 ambulatory [facility] Start: 12-10-2022 End: 12-10-2022 ambulatory [facility] Start: 12-07-2022 End: 12-07-2022 Emergency department patient visit Yolanda Patel Work Phone: [facility] EMERGENCY DEPT Comment on above: Deep vein thrombosis (DVT) of proximal vein of left lower extremity, unspecified chronicity (HCC) (Primary Dx) Start: 12-03-2022 Orders Only Cheryl centeno MD Work Phone: [facility] Internal Medicine Comment on above: Acute deep vein thro mbosis (DVT) of left lower extremity, unspecified vein (HCC) (Primary Dx) Start: 11-15-2022 ambulatory Dat Talbot RN [facility] Clinical Communication Start: 11-15-2022 Patient encounter [facility] Start: 11-15-2022 Telephone encounter Farzana Samaniego RN [facility] Clinical Communication Comment on above: Results (/) Start: 11-14-2022 End: 11-14-2022 Subsequent hospital visit by physician Cheryl Basilio MD Work Phone: [facility] Vascular Lab Comment on above: Acute deep vein thro mbosis (DVT) of left lower extremity, unspecified vein (HCC) Start: 11-14-2022 ambulatory Natacha Barry RN [facility] Clinical Communication Start: 11-14-2022 Patient encounter procedure Dasia F ericanicole RN [facility] Clinical Communication Start: 11-14-2022 End: 11-14-2022 Office outpatient visit 15 minutes Cheryl Basilio MD Work Phone: [facility] Internal Medicine Comment on above: Acute deep vein thro mbosis (DVT) of left lower extremity, unspecified vein (HCC) (Primary Dx) Start: 11-13-2022 ambulatory Khalida Currie RN [facility] [employer]opharm[employer]ical Communication Start: 11-13-2022 Patient encounter procedure Khalida herring RN [facility] Clinical Communication Start: 10-31-2022 Telephone encounter Cheryl Basilio MD Work Phone: [facility] Internal Medicine Comment on above: Med Refill Start: 10-15-2022 Orders Only Cheryl centeno MD Work Phone: [facility] Internal Medicine Comment on above: ER Follow-up Start: 10-12-2022 End: 10-16-2022 Emergency department patient visit Natacha Frankel Work Phone: [facility] 4S TELEMETRY Comment on above: Acute deep vein thro mbosis (DVT) of left lower extremity, unspecified vein (HCC) (Primary Dx); Ambulatory dysfunction Start: 10-12-2022 End: 10-12-2022 Subsequent hospital visit by physician [facility] Us Exam Room [address] [facility] US Comment on above: Arrived Start: 10-12-2022 End: 10-12-2022 Emergency department patient visit Pacheco Negron MD Work Phone: [facility] ED Comment on above: Leg swelling (Primar y Dx); Acute deep vein thrombosis (DVT) of left lower extremity, unspecified vein (HCC) Start: 10-11-2022 End: 10-11-2022 Office outpatient new 30 minutes Cheryl Basilio MD Work Phone: [facility] Internal Medicine Comment on above: Recurrent UTI (Prima ry Dx); Benign prostatic hyperplasia without lower urinary tract symptoms Start: 10-10-2022 End: 10-10-2022 Office outpatient new 45 minutes Donna Roberts DO Work Phone: [facility] Pulmonary Comment on above: Pleural effusion (Pr imary Dx); History of tobacco abuse; Centrilobular emphysema (HCC) Start: 10-10-2022 End: 10-10-2022 Subsequent hospital visit by physician Won Smith CHAIRMAN & CEO - AUDIO VISUAL DIRECTOR Work Phone: [facility] Comment on above: Complex renal cyst Start: 09-27-2022 ambulatory NONE PHYSICIAN Facility :R Start: 09-18-2022 End: 09-18-2022 Subsequent hospital visit by physician Leanne Perales MD Work Phone: [facility] CT Comment on above: No Show Start: 09-16-2022 Telephone encounter Chana kunz CHAIRMAN & CEO - AUDIO VISUAL DIRECTOR Work Phone: [facility] Family Medicine Comment on above: Results Start: 09-13-2022 End: 09-13-2022 Office outpatient visit 15 minutes Chana Brown CHAIRMAN & CEO - AUDIO VISUAL DIRECTOR Work Phone: [facility] Family Medicine Comment on above: Urinary tract infect ion symptoms (Primary Dx) Start: 08-22-2022 Refill Leanne Perales MD Work Phone: [facility] Family Medicine Start: 08-20-2022 Orders Only Tayler Rivas CHAIRMAN & CEO - AUDIO VISUAL DIRECTOR Work Phone: [facility] Family Medicine Start: 08-17-2022 End: 08-17-2022 Office outpatient visit 15 minutes Tayler Rivas CHAIRMAN & CEO - AUDIO VISUAL DIRECTOR Work Phone: [facility] Family Medicine Comment on above: Recurrent UTI (Prima ry Dx); Dysuria; Urinary frequency; Urinary urgency; Chronic right-sided low back pain without sciatica; Leukocytes in urine; Hematuria, unspecified type Start: 07-04-2022 Refill Leanne Perales MD Work Phone: [facility] Medicine Start: 06-19-2022 End: 06-19-2022 Office outpatient visit 10 minutes Leanne Perales MD Work Phone: [facility] Comment on above: 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) Start: 06-19-2022 End: 06-19-2022 Office outpatient visit 15 minutes Leanne Perales MD Work Phone: [facility] Comment on above: 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) Start: 05-17-2022 End: 05-17-2022 Office outpatient visit 15 minutes Leanne Perales MD Work Phone: [facility] Comment on above: Right flank pain (Pr imary Dx) Start: 03-22-2022 Telephone encounter Leanne Chu MD Work Phone: [facility] Comment on above: Auth for CT Start: 03-13-2022 Refill Leanne Perales MD Work Phone: [facility] Start: 03-06-2022 End: 03-06-2022 Office outpatient visit 25 minutes Leanne Perales MD Work Phone: [facility] Comment on above: Acute right-sided lo w back pain without sciatica (Primary Dx); Right flank pain Start: 02-27-2022 End: 02-27-2022 Office outpatient visit 15 minutes Chana Bridenthal CHAIRMAN & CEO - AUDIO VISUAL DIRECTOR Work Phone: [facility] Comment on above: Acute cystitis witho ut hematuria (Primary Dx); Flank pain; Essential hypertension, benign Start: 02-27-2022 End: 02-27-2022 Office outpatient visit 25 minutes Chana Bridenthal CHAIRMAN & CEO - AUDIO VISUAL DIRECTOR Work Phone: [facility] Comment on above: Acute cystitis witho ut hematuria (Primary Dx); Flank pain; Essential hypertension, benign Start: 12-15-2021 Transcribe Orders Won kramer CHAIRMAN & CEO - AUDIO VISUAL DIRECTOR Work Phone: [facility] Clinical Communication Comment on above: Complex renal cyst ( Primary Dx) Start: 12-07-2021 [facility] Start: 12-01-2021 End: 12-06-2021 Evaluation and management of inpatient UNKNOWN PROVIDER [facility] Start: 12-01-2021 End: 12-06-2021 Evaluation and management of inpatient Barry Leon MD Work Phone: [facility] MED SURG Comment on above: Flank pain (Primary Dx); Acute right flank pain; Chills Start: 11-27-2021 End: 11-28-2021 Emergency department patient visit UNKNOWN PROVIDER [facility] Start: 11-27-2021 End: 11-28-2021 Emergency department patient visit Tc Spence MD Work Phone: [facility] Comment on above: Flank pain (Primary Dx) Start: 10-18-2021 [facility] Start: 10-18-2021 End: 10-18-2021 Subsequent hospital visit by physician oRcio Ruiz MD Work Phone: [facility] MRI Comment on above: Macroprolactinoma (H CC) Start: 04-12-2021 [facility] Start: 12-26-2018 End: 12-26-2018 Subsequent hospital visit by physician Hema Gomez Work Phone: [facility] Laboratory Comment on above: Primary hyperparathy roidism (HCC); Prolactin secreting pituitary adenoma (HCC); 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 Justice Bailey DO Work Phone: Start: 11-09-2024 X-ray of lumbosacral spine Dr. Justice Bailey DO Work Phone: Start: 10-09-2024 X-ray of lumbosacral spine Dr. Justice Bailey DO Work Phone: Start: 10-03-2024 Computed tomography of abdomen and pelvis with intravenous contrast Dr. Justice Bailey DO Work Phone: Start: 10-03-2024 Urnls dip stick/tabl et reagent auto microscopy Dr. Justice Bailey DO Work Phone: Start: 10-03-[address] Justice Bailey DO Work Phone: Start: 08-02-2024 Estimated creatinine clearance Dloly SHAFFER Work Phone: Start: 08-02-2024 Urnls dip stick/tabl et reagent auto microscopy Dolly SHAFFER Work Phone: Start: 08-02-2024 CT of abdomen and pe lvis without contrast Dolly SHAFFER Work Phone: Start: 05-28-2024 Urine culture Dolly SAHFFER Work Phone: Start: 07-31-2023 Thyrotropin [Units/v olume] in Serum or Plasma Rocio Ruiz MD Work Phone: Start: 06-21-2023 Computed tomography of abdomen and pelvis with contrast SERVICE ATTENDANT-C Sanjana Hale Work Phone: Start: 06-18-2023 US urinary tract SERVICE ATTENDANT-C Dusty Hale Work Phone: Start: 06-06-2023 Urine [...] above: Performed By: #### L [id number] #### Newspaper Writer: LENORE ESCOBAR ([phone]) [facility] ([facility]) [address] [place] [address] Start: 12-11-2022 Dup-scan aorta ivc i liac [...] et rgnt non-auto w/o micrscp Chana Bridenthal CHAIRMAN & CEO - AUDIO VISUAL DIRECTOR Work Phone: Start: 08-17-2022 Urnls dip stick/tabl et rgnt non-auto w/o micrscp Tayler Rivas CHAIRMAN & CEO - AUDIO VISUAL DIRECTOR Work Phone: Start: 08-17-2022 Culture bacterial quanttative colony count urine Tayler Rivas CHAIRMAN & CEO - AUDIO VISUAL DIRECTOR Work Phone: Start: 05-17-2022 Urnls dip stick/tabl [...] REFLEX TO MG FOR LOW K Kiara Antwon [facility] Work Phone: Start: 12-06-2021 Blood count complete auto&auto difrntl wbc Kiara Kapoor [facility] Work Phone: Start: 12-05-2021 BASIC METABOLIC PANE L W/ REFLEX TO MG FOR LOW K Kiara Antwon [facility] Work Phone: Start: 12-05-2021 Blood count complete auto&auto difrntl wbc Kiara Kapoor [facility] Work Phone: Start: 12-05-2021 Manual Differential panel - Blood Kiara Kapoor [facility] Work Phone: Start: 12-04-2021 Urnls dip stick/tabl et rgnt auto w/o microscopy Kiara Kapoor [facility] Work Phone: Start: 12-04-2021 Us retroperitoneal r eal time w/image limited Kiara Kapoor [facility] Work Phone: Start: 12-04-2021 BASIC METABOLIC [...] stick/tabl et rgnt auto w/o microscopy Lenore SHAFFER Work Phone: Start: 11-27-2021 Ct abdomen & pelvis w/o contrast material Tc Spence MD Work Phone: Start: 11-27-2021 Urnls dip stick/tabl et rgnt auto w/o microscopy Tc Spence MD Work Phone: Start: 11-27-2021 Basic metabolic pane l calcium total Tc Spence MD Work Phone: Start: 02-01-2020 Colonoscopy Rocio Ruiz MD Work Phone: Start: 12-26-2018 POCT CALCIUM IONIZED Nhi Gomez Work Phone: Start: 12-26-2018 25 hydroxy includes fractions if performed ciaran Yolanda Jason Work Phone: Start: 12-26-2018 Assay of free thyroxine ciaran Yolanda Jason Work Phone: Start: 12-26-2018 Assay of parathormone A sasha Yolanda Jason Work Phone: Start: 12-26-2018 Assay of prolactin Latrice Gomez Work Phone: Start: 12-26-2018 Assay of thyroid stimulating hormone tsh ciaran Gomez Work Phone: Start: 12-26-2018 [facility] Work Phone: Start: 12-26-2018 Assay of urine sodium A sasha Gomez Work Phone: Start: 12-26-2018 Creatinine other source ciaran Gomez Work Phone: Start: 02-25-2013 Cholecystectomy BASIM RAMSEY MD Plan of Treatment Date Care Activity Detail Author Start: 01-31-2030 Screening for malignant neoplasm of colon [facility] Start: 02-07-2027 Lipid panel Lipid Panel [facility] Start: 08-20-2026 DTaP/Tdap/Td vaccine (2 - Td or Tdap) DTaP/Tdap/Td vaccine (2 - Td or Tdap) [facility] Start: 08-20-2026 DTaP/Tdap/Td vaccine (2 - Td) DTaP/Tdap/Td vaccine (2 - Td) [place] Start: 08-20-2026 DTaP/Tdap/Td Vaccines (2 - Td or Tdap) DTaP/Tdap/Td Vaccines (2 - Td or Tdap) [facility] Start: 11-09-2024 X-ray of lumbosacral spine L/S Spine Bending Flex/Ext [facility] Start: 11-09-2024 XR Spine Lumbar and Sacrum Views [facility] Start: 10-03-2024 End: 10-03-2024 [facility] Start: 08-02-2024 [facility] Start: 07-30-2024 Thyroid stimulating hormone measurement TSH Level [facility] Start: 05-28-2024 Urine culture Urine Culture [facility] Start: 05-28-2024 [facility] Start: 05-14-2024 Patient referral [facility] Work Phone: Start: 01-04-2024 Thyroid stimulating hormone measurement TSH Level [facility] Start: 10-27-2023 Influenza vaccination [facility] Start: 08-01-2023 End: 07-31-2024 Hemoglobin [Mass/volume] in Blood Hemoglobin and hematocrit, blood Lab Routine Hypogonadism in male Expected: 08/01/2023 (Approximate), Expires: 07/31/2024 [facility] Comment on above: Expected: 08/01/2023 (Approximate), Expi res: 07/31/2024 Start: 08-01-2023 End: 07-31-2024 Testosterone [Mass/volume] in Serum or Plasma Testosterone Lab Routine Hypogonadism in male Expected: 08/01/2023 (Approximate), Expires: 07/31/2024 [facility] Work Phone: Comment on above: Expected: 08/01/2023 (Approximate), Expi res: 07/31/2024 Start: 07-31-2023 End: 07-30-2024 Creatinine [Mass/volume] in Serum or Plasma Creatinine, Serum Lab Routine Pituitary adenoma (HCC) Expected: 07/31/2023 (Approximate), Expires: 07/30/2024 [facility] Comment on above: Expected: 07/31/2023 (Approximate), Expi res: 07/30/2024 Start: 07-31-2023 End: 07-30-2024 DXA Skeletal system.axial Views for bone density DEXA bone density axial skeleton Imaging Routine Hypercalcemia Expected: 07/31/2023, Expires: 07/30/2024 [facility] Comment on above: Expected: 07/31/2023, Expires: Start: 07-31-2023 End: 07-30-2024 Hemoglobin [Mass/volume] in Blood Hemoglobin and hematocrit, blood Lab Routine Hypogonadotropic hypogonadism (HCC) Expected: 07/31/2023 (Approximate), Expires: 07/30/2024 [facility] Comment on above: Expected: 07/31/2023 (Approximate), Expi res: 07/30/2024 Start: 07-31-2023 End: 07-30-2024 MR Pituitary and Sella turcica WO and W contrast IV MR pituitary w and wo IV contrast Imaging Routine Pituitary adenoma (HCC) Expected: 07/31/2023, Expires: 07/30/2024 [facility] Comment on above: Expected: 07/31/2023, Expires: Start: 07-31-2023 End: 07-30-2024 Prolactin Prolactin Lab Routine Pituitary adenoma (HCC) Expected: 07/31/2023 (Approximate), Expires: 07/30/2024 [facility] Work Phone: Comment on above: Expected: 07/31/2023 (Approximate), Expi res: 07/30/2024 Start: 07-31-2023 End: 07-30-2024 Testosterone [Mass/volume] in Serum or Plasma Testosterone Lab Routine Hypogonadotropic hypogonadism (HCC) Expected: 07/31/2023 (Approximate), Expires: 07/30/2024 [facility] Comment on above: Expected: 07/31/2023 (Approximate), Expi res: 07/30/2024 Start: 07-31-2023 End: 07-30-2024 Thyrotropin [Units/volume] in Serum or Plasma TSH Lab Routine 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 Expected: 07/31/2023 (Approximate), Expires: 07/30/2024 [facility] Comment on above: Expected: 07/31/2023 (Approximate), Expi res: 07/30/2024 Start: 07-31-2023 End: 07-31-2023 Patient encounter procedure [facility] Endocrinology Start: 05-28-2023 Patient referral [facility] Work Phone: Start: 04-12-2023 End: 04-12-2023 Patient encounter procedure 04/12/2023 8:00 AM EST Office Visit [facility] Internal Medicine [address] [place] [address] Ziggy Frazier MD [address] [place] [address] [facility] Internal Medicine Start: 02-20-2023 Patient referral [facility] Work Phone: Start: 02-14-2023 End: 02-14-2023 Patient encounter procedure 02/14/2023 7:30 AM EST Office Visit [facility] Family Medicine [address] [place] [address] Leanne Perales MD [address] [place] [address] [facility] Start: 02-13-2023 Patient discharge [facility] Start: 02-13-2023 [facility] Start: 02-13-2023 Care planning and problem solving actions [facility] Start: 02-12-2023 [facility] Start: 02-12-2023 Following clinical pathway protocol [facility] Start: 02-12-2023 Ambulation without limitation [facility] Start: 02-12-2023 Assessment of risk of venous thromboembolism [facility] Start: 02-12-2023 Bedrest [facility] Start: 02-12-2023 Incentive spirometry [facility] Start: 02-12-2023 Insertion of catheter into peripheral vein [facility] Start: 02-12-2023 Measuring intake and output [facility] Start: 02-12-2023 Notification of physician [facility] Start: 02-12-2023 Oxygen therapy [facility] Start: 02-12-2023 Providing care according to standard [facility] Start: 02-12-2023 Provision of activity privileges [facility] Start: 02-12-2023 Pulse taking [facility] Start: 02-12-2023 Taking patient vital signs [facility] Start: 02-12-2023 End: 02-12-2023 [facility] Start: 02-12-2023 Admission procedure [facility] Start: 02-12-2023 Thrombectomy (Bilateral) Thrombectomy (Bilateral) [facility] Start: 02-06-2023 COVID-19 Vaccine (4 - Booster for Moderna series) COVID-19 Vaccine (4 - Booster for Moderna series) [facility] Comment on above: Postponed from 05/08/2021 (Patient Refus ed) Start: 02-06-2023 COVID-19 Vaccine (4 - Booster) COVID-19 Vaccine (4 - Booster) [facility] Comment on above: Postponed from 05/08/2021 (Patient Refus ed) Start: 02-06-2023 COVID-19 Vaccine (4 - Moderna series) COVID-19 Vaccine (4 - Moderna series) [facility] Comment on above: Postponed from 05/08/2021 (Patient Refus ed) Start: 02-06-2023 Depression Screening Depression Screening [facility] Start: 02-06-2023 Hepatitis C screening Hepatitis C Screening [facility] Comment on above: Postponed from 09/08/1979 (Patient Refus ed) Start: 02-06-2023 HIV screening HIV Screening [facility] Comment on above: Postponed from 1961 (Patient Refus ed) Start: 01-30-2023 End: 01-30-2023 Telemedicine consultation with patient 01/30/2023 10:00 AM EST Telemedicine [facility] Pulmonary [address] [place] [phone] Donna Roberts DO [address] [place] [address] [facility] Pulmonary Start: 01-22-2023 End: 01-22-2023 Patient encounter procedure 01/22/2023 8:30 AM EST Office Visit [facility] Oncology [address] 1st [place] [phone] Lauren Borja DO [address] [place] [address] [facility] Oncology Start: 01-07-2023 End: 01-07-2023 Patient encounter procedure 01/07/2023 2:45 PM EST Office Visit [facility] Vascular Center [address] [place] [phone] Ziggy Arauz MD [address] [place] [address] [facility] Start: 01-04-2023 End: 01-05-2024 Hemoglobin [Mass/volume] in Blood Hemoglobin and hematocrit, blood Lab Routine Hypogonadism in male Expected: 01/04/2023 (Approximate), Expires: 01/05/2024 [facility] [employer] [facility] Work Phone: Comment on above: Expected: 01/04/2023 (Approximate), Expi res: 01/05/2024 Start: 01-04-2023 End: 01-05-2024 Macropolactin Macropolactin Lab Routine Hypogonadism in male Expected: 01/04/2023 (Approximate), Expires: 01/05/2024 [facility] Comment on above: Expected: 01/04/2023 (Approximate), Expi res: 01/05/2024 Start: 01-04-2023 End: 01-05-2024 Testosterone [Mass/volume] in Serum or Plasma Testosterone Lab Routine Hypogonadism in male Expected: 01/04/2023 (Approximate), Expires: 01/05/2024 [facility] Comment on above: Expected: 01/04/2023 (Approximate), Expi res: 01/05/2024 Start: 01-02-2023 End: 01-02-2023 Patient encounter procedure [facility] Endocrinology Start: 01-02-2023 End: 01-02-2023 Patient encounter procedure 01/02/2023 8:30 AM EST Office Visit [facility] Vascular Surgery [address] [place] [address] Ziggy Arauz MD [address] [place], [place] [id number] [facility] Surgery Start: 12-25-2022 End: 12-25-2022 Admission to same day surgery center 12/25/2022 10:30 AM EDT - 12/25/2022 1:00 PM EDT Surgery [facility] MAIN OR [address] [place] [phone] Ziggy Arauz MD [address] [place] [address] LEFT ILIOFEMORAL DEEP VEIN THROMBOSIS, THROMBECTOMY AND STENTING [33939 (CPT )] [facility] Comment on above: LEFT ILIOFEMORAL DEEP VEIN THROMBOSIS, T HROMBECTOMY AND STENTING [81059 (CPT )] Start: 12-25-2022 End: 12-25-2022 Anesthesia consultation 12/25/2022 10:30 AM EDT Anesthesia Event [facility] MAIN OR [address] [place] [phone] Carissa Romero, CHAIRMAN & CEO - AUDIO VISUAL DIRECTOR [address] [place] [address] [facility] OR Start: 12-25-2022 End: 12-25-2022 Open/perq placement intravascular stent same 1st TRANSCATHETER PLACEMENT OF AN INTRAVASCULAR STENT(S), OPEN OR PERCUTANEOUS INITIAL VEIN 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) 12/25/2022 10:30 AM EDT [facility] Operating Room Start: 12-25-2022 End: 12-25-2022 Prq transluminal mechanical thrombectomy vein PERCU TRANSLUMIN MECHNCL THROMBEC, VEIN(S), INCL INTRAPROCED PHARMACOLO THROMBOLYTIC INJ & FLUORO GUIDNCE 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) 12/25/2022 10:30 AM EDT [facility] Operating Room Start: 12-25-2022 Subsequent hospital visit by physician 12/25/2022 10:30 AM EDT Hospital Encounter [facility] MAIN OR [address] [place] [phone] Ziggy Arauz MD [address] [place] [address] [facility] MAIN OR Start: 12-21-2022 End: 12-21-2022 Admission to same day surgery center 12/21/2022 1:30 PM EDT - 12/21/2022 3:00 PM EDT Surgery [facility] MAIN OR [address] [facility] [place] [phone] Ziggy Arauz MD [address] [place] [address] LEFT ILIOFEMORAL DEEP VEIN THROMBOSIS, THROMBECTOMY AND STENTING [62054 (CPT )] [facility] MAIN OR Comment on above: LEFT ILIOFEMORAL DEEP VEIN THROMBOSIS, T HROMBECTOMY AND STENTING [75734 (CPT )] Start: 12-21-2022 End: 12-21-2022 Open/perq placement intravascular stent same 1st TRANSCATHETER PLACEMENT OF AN INTRAVASCULAR STENT(S), OPEN OR PERCUTANEOUS INITIAL VEIN 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) 12/21/2022 1:30 PM EDT [facility] Operating Room Start: 12-21-2022 End: 12-21-2022 Prq transluminal mechanical thrombectomy vein PERCU TRANSLUMIN MECHNCL THROMBEC, VEIN(S), INCL INTRAPROCED PHARMACOLO THROMBOLYTIC INJ & FLUORO GUIDNCE 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) 12/21/2022 1:30 PM EDT [facility] Operating Room Start: 12-21-2022 Subsequent hospital visit by physician 12/21/2022 1:30 PM EDT Hospital Encounter [facility] MAIN OR [address] [facility] [place] [phone] Ziggy Arauz MD [address] [phone] [facility] MAIN OR Start: 12-13-2022 End: 12-13-2022 Admission to establishment 12/13/2022 10:00 AM EDT Pre-Admission Testing [facility] Pre-Admit Testing [address] [place] [phone] [facility] Pre-Admit Testing Start: 12-13-2022 End: 12-13-2022 Patient encounter procedure 12/13/2022 Office Visit Urology Won Smith, CHAIRMAN & CEO - AUDIO VISUAL DIRECTOR [address] [place] [address] [facility] Start: 12-12-2022 End: 12-12-2022 Patient encounter procedure 12/12/2022 9:00 AM EDT Office Visit [facility] Urology [address] [place] [phone] Tayler Salmon, CHAIRMAN & CEO - SERVICE ATTENDANT [address] [place] [address] [facility] Start: 12-11-2022 End: 12-11-2022 Patient encounter procedure 12/11/2022 9:20 AM EDT Procedure Visit [facility]rology [address] [place] [address] Garrison Garza MD [address] [place] [address] [facility] Start: 12-10-2022 End: 12-10-2022 Patient encounter procedure 12/10/2022 2:15 PM EDT Office Visit [facility] Vascular Center [address] [place] [phone] Ziggy Arauz MD [address] [place] [address] [facility] Start: 12-04-2022 End: 12-04-2022 Patient encounter procedure [facility] [address] [facility] Start: 12-02-2022 Lipid panel Lipids [facility] Start: 12-02-2022 Thyroid stimulating hormone measurement TSH Level [facility] Start: 11-14-2022 End: 11-14-2022 Patient encounter procedure 11/14/2022 11:00 AM EDT Office Visit [facility] Internal Medicine [address] [facility] [address] [place] [phone] Cheryl Basilio MD [address] [facility] [address] [place] [address] [facility] Internal Medicine Start: 10-26-2022 COVID-19 Vaccine () COVID-19 Vaccine () [facility] Start: 10-26-2022 Influenza vaccination Influenza Vaccine (#1) [facility] Start: 10-24-2022 End: 10-24-2022 Patient encounter procedure 10/24/2022 11:20 AM EDT Office Visit [facility] Internal Medicine [address] [phone] Cheryl Basilio MD [address] [address] [facility] Medicine Start: 10-11-2022 End: 10-12-2023 Bacteria identified in Urine by Culture Urine culture (clean catch) Microbiology Routine Recurrent UTI Expected: 10/11/2022 (Approximate), Expires: 10/12/2023 [facility] Comment on above: Expected: 10/11/2022 (Approximate), Expi res: 10/12/2023 Start: 10-11-2022 End: 10-12-2023 Urinalysis complete panel - Urine Urinalysis with reflex microscopic (clean catch) Lab Routine Recurrent UTI Expected: 10/11/2022 (Approximate), Expires: 10/12/2023 [facility] Work Phone: Comment on above: Expected: 10/11/2022 (Approximate), Expi res: 10/12/2023 Start: 10-11-2022 End: 10-11-2022 Patient encounter procedure 10/11/2022 8:20 AM EDT Office Visit [facility] Internal Medicine [address] [facility] [address] [place] [address] Cheryl Basilio MD [address] [place] [address] [address] [place] [address] [facility] Medicine Start: 10-10-2022 End: 10-11-2023 Complete PFT pre and post bronchodilator Complete PFT pre and post bronchodilator PFT Routine History of tobacco abuse Centrilobular emphysema (HCC) Expected: 10/10/2022 (Approximate), Expires: 10/11/2023 [facility] Work Phone: Comment on above: Expected: 10/10/2022 (Approximate), Expi res: 10/11/2023 Start: 10-10-2022 End: 10-11-2023 CT Chest for screening WO contrast CT lung screening low dose Imaging Routine History of tobacco abuse Centrilobular emphysema (HCC) Pleural effusion Expected: 10/10/2022, Expires: 10/11/2023 [facility] [employer] Comment on above: Expected: 10/10/2022, Expires: Start: 09-18-2022 Subsequent hospital visit by physician 09/18/2022 8:15 AM EDT Hospital Encounter [facility] [address] [facility] [place] [place] [address] Leanne Perales MD [address] [place] [address], [place] [address] [facility] CT Start: 09-13-2022 End: 09-14-2023 Bacteria identified in Urine by Culture Urine culture (clean catch) Microbiology Routine Urinary tract infection symptoms Expected: 09/13/2022 (Approximate), Expires: 09/14/2023 [facility] Work Phone: Comment on above: Expected: 09/13/2022 (Approximate), Expi res: 09/14/2023 Start: 08-17-2022 End: 08-18-2023 Bacteria identified in Urine by Culture Urine culture (clean catch) Microbiology Routine Dysuria Urinary frequency Urinary urgency Leukocytes in urine Hematuria, unspecified type Recurrent UTI Expected: 08/17/2022 (Approximate), Expires: 08/18/2023 [facility] Work Phone: Comment on above: Expected: 08/17/2022 (Approximate), Expi res: 08/18/2023 Start: 08-06-2022 End: 08-06-2022 Patient encounter procedure 08/06/2022 Office Visit Family Medicine Leanne Perales MD [address] [place] [address], [facility] [address] [place], [place] [phone] [facility] Medicine Start: 08-03-2022 Depression Screen Depression Screen [facility] Start: 08-03-2022 Lipid panel Lipids [facility] Start: 06-13-2022 End: 06-13-2022 Patient encounter procedure 06/13/2022 Office Visit Endocrinology Rocio Ruiz MD [address] [place] [phone] [facility]ocr[facility]ology Start: 05-17-2022 End: 05-18-2023 Bacteria identified in Urine by Culture Urine culture Microbiology Routine Right flank pain Expected: 05/17/2022 (Approximate), Expires: 05/18/2023 [facility] Work Phone: Comment on above: Expected: 05/17/2022 (Approximate), Expi res: 05/18/2023 Start: 03-06-2022 End: 03-06-2023 CT Lumbar spine WO contrast CT lumbar spine wo IV contrast Imaging Routine Right flank pain Acute right-sided low back pain without sciatica Expected: 03/06/2022, Expires: 03/06/2023 [facility] [employer] Work Phone: Comment on above: Expected: 03/06/2022, Expires: Start: 03-05-2022 End: 03-05-2022 Patient encounter procedure 03/05/2022 Office Visit Endocrinology Rocio Calix MD [address] [facility] [address] [place] [id number] Endocrinology [facility] Start: 02-06-2022 End: 02-06-2022 Patient encounter procedure 02/06/2022 Office Visit Family Medicine Leanne Perales MD [address] [facility], [place] [address] [facility] Start: 12-15-2021 End: 12-15-2022 US Retroperitoneum US retroperitoneum Imaging Routine Complex renal cyst Expected: 12/15/2021, Expires: 12/15/2022 [facility] Work Phone: Comment on above: Expected: 12/15/2021, Expires: 3 Start: 12-07-2021 End: 12-07-2021 Patient encounter procedure 12/07/2021 Appointment Radiology Tayler Rivas, CHAIRMAN & CEO - AUDIO VISUAL DIRECTOR [address] [place] [address] Start: 10-26-2021 Influenza vaccination Flu vaccine (#1) [facility] Start: 09-25-2021 Influenza vaccination Flu vaccine (#1) [facility] Start: 2021 RSV Immunization aged 60 or older (1 - 1-dose 60+ series) RSV Immunization aged 60 or older (1 - 1-dose 60+ series) [facility] Start: 07-11-2021 COVID-19 Vaccine (4 - Booster) COVID-19 Vaccine (4 - Booster) [facility] Start: 07-15-2019 Lipid screen Lipid screen [place], [place] Start: 07-12-2019 Colon cancer screen colonoscopy Colon cancer screen colonoscopy [place], [place] Start: 06-26-2019 Creatinine monitoring Creatinine monitoring [place], [place] Start: 06-26-2019 Potassium monitoring Potassium monitoring [place], [place] Start: 06-26-2019 TSH testing TSH testing [place], [place] Start: 01-20-2019 End: 01-20-2019 Office Visit 01/20/2019 Office Visit Endocrinology Hema Gomez MD [address] [place] [address] [phone] Endocrinology [facility] Start: 01-09-2019 End: 01-09-2019 Office Visit 01/09/2019 Office Visit Family Medicine Leanne Perales MD [address] [facility], [place] [address] [phone] [facility] Start: 10-26-2018 Influenza vaccination Flu vaccine (#1) [place], [place] Start: 05-26-2018 Diabetes screen Diabetes screen [facility] Start: 09-08-2011 Screening for malignant neoplasm of lung Lung Cancer Screening [facility] Start: 09-08-2011 Shingles Vaccine (1 of 2) Shingles Vaccine (1 of 2) [place], [place] Start: 2006 Screening for malignant neoplasm of colon [facility] Start: 09-08-1979 Diabetes mellitus screening Diabetes Screening [facility] Start: 09-08-1979 Hepatitis C screening Hepatitis C Screening [facility] Start: 1962 MMR Vaccines (1 of 1 - Standard series) MMR Vaccines (1 of 1 - Standard series) [facility] Start: 1961 Hepatitis B Vaccines (1 of 3 - 3-dose series) Hepatitis B Vaccines (1 of 3 - 3-dose series) [facility] Start: 1961 HIV screening HIV Screening [facility] Start: 1961 Screening for malignant neoplasm of colon [facility] End: 12-26-2018 ACTH ACTH Lab Routine Prolactin secreting pituitary adenoma (HCC) 1 Occurrences starting 12/26/2018 until 12/26/2018 [place], [place] Comment on above: 1 Occurrences starting 12/26/2018 until 12/26/2018 ACTH ACTH Lab Routine Prolactin secreting pituitary adenoma (HCC) 12/26/2018 9:03 AM EDT [place] End: 12-11-2021 Basic Metabolic Panel w/ Reflex to MG Basic Metabolic Panel w/ Reflex to MG Lab Routine Daily for 1 Weeks starting 12/05/2021 until 12/11/2021, 2 completed [facility] Work Phone: Comment on above: Daily for 1 Weeks starting 12/05/2021 un til 12/11/2021, 2 completed End: 12-26-2018 Calcium, Urine Calcium, Urine Lab Routine Primary hyperparathyroidism (HCC) 1 Occurrences starting 12/26/2018 until 12/26/2018 [place], [place] Comment on above: 1 Occurrences starting 12/26/2018 until 12/26/2018 Calcium, Urine Calcium, Urine L ab Routine Primary hyperparathyroidism (HCC) 12/26/2018 5:45 AM EDT [place] End: 12-11-2021 CBC W Auto Differential panel - Blood CBC with Auto Differential Lab Routine Daily for 1 Weeks starting 12/05/2021 until 12/11/2021, 2 completed [facility] Work Phone: Comment on above: Daily for 1 Weeks starting 12/05/2021 un til 12/11/2021, 2 completed CBC W Auto Different ial panel - Blood [facility] metabo lic 1999 panel - Serum or Plasma [facility] 1999 panel - Serum or Plasma [facility] End: 12-26-2018 Cortisol Cortisol Lab Routine Prolactin secreting pituitary adenoma (HCC) 1 Occurrences starting 12/26/2018 until 12/26/2018 [place], [place] Comment on above: 1 Occurrences starting 12/26/2018 until 12/26/2018 Cortisol Cortisol Lab Rou rolf Prolactin secreting pituitary adenoma (HCC) 12/26/2018 9:03 AM EDT [place] CT Abdomen and Pelvi s WO and W contrast IV [facility] Culture, Blood 2 Culture, Blood 2 Microbiology STAT 12/01/2021 10:28 AM EDT [facility] Work Phone: End: 11-27-2021 Culture, Urine [facility] Work Phone: Comment on above: One Time for 1 Occurrences starting 04/2021 until 11/27/2021 Doppler ultrasonogra phy of aorta [facility] Electrocardiographic procedure [facility] End: 10-13-2022 Factor 5 [facility] Work Phone: Comment on above: Once (Lab) for 1 Occurrences starting until 10/13/2022 Lipid 1996 panel - S suhail or Plasma [facility] Lipid 1996 panel - S suhail or Plasma [facility] Microscopic examinat ion of blood, culture Culture, Blood Microbiology STAT 12/01/2021 11:05 AM EDT [employer] Work Phone: End: 09-16-2023 MR Pituitary and Sella turcica WO and W contrast IV [facility] Work Phone: Comment on above: Once for 1 Occurrences starting 09/16/19 until 09/16/2023 End: 10-18-2021 MRI BRAIN W WO CONTRAST [employer] Work Phone: Comment on above: Once for 1 Occurrences starting 10/19/19 until 10/18/2021 OUTSIDE PROCEDURE SCAN OUTSIDE P ROCEDURE SCAN Procedures Ordered: 09/17/2022 [facility] Comment on above: Ordered: 09/17/2022 OUTSIDE PROCEDURE SCAN OUTSIDE P ROCEDURE SCAN Procedures Ordered: 10/09/2022 [facility] [employer] Comment on above: Ordered: 10/09/2022 Oxygen therapy [[facility] Data Set] Initiate Oxygen Therapy Protocol Respiratory Care Routine As Needed until discontinued starting 12/01/2021 [employer] Work Phone: Comment on above: As Needed until discontinued starting Patient Education [facility] Work Phone: Patient referral [facility] Work Phone: Prolactin measurement [facility] Prostate specific an tigen measurement [facility] Prostate specific an tigen measurement [facility] T4 free measurement [facility] Testosterone measurement [facility] Thyroid stimulating hormone measurement [facility] Thyroid stimulating hormone measurement [facility] End: 10-10-2022 US Retroperitoneum [facility] [employer] Work Phone: Comment on above: Once for 1 Occurrences starting 10/11/19 until 10/10/2022 Vitamin D, 25-hydrox y measurement [facility] XR Spine Lumbar and Sacrum GE 4 Views [facility] Immunizations Immunization Date Immunization Notes Care Provider [facility] 12-14-2021 influenza, injectabl e, quadrivalent, preservative free Leanne Perales MD Work Phone: [facility] 12-14-2021 influenza virus vaccine, unspecified formulation Chana Brown CHAIRMAN & CEO - AUDIO VISUAL DIRECTOR Work Phone: [facility] 08-10-2021 Pneumococcal conjuga te PCV20, PF (Prevnar 20) Rocio Ruiz MD Work Phone: [facility] Work Phone: 08-03-2021 zoster vaccine recombinant Rocio Ruiz MD Work Phone: [facility] Work Phone: 03-13-2021 COVID-19, MODERNA BL UE border, Primary or Immunocompromised, (age 12y+), IM, 100 mcg/0.5mL Rocio Ruiz MD Work Phone: [facility] Work Phone: 01-11-2021 influenza, injectabl e, quadrivalent, preservative free Rocio Ruiz MD Work Phone: [facility] 01-11-2021 zoster vaccine recombinant Rocio Ruiz MD Work Phone: [facility] Work Phone: 07-08-2020 COVID-19, MODERNA BL UE border, Primary or Immunocompromised, (age 12y+), IM, 100 mcg/0.5mL Rocio Ruiz MD Work Phone: [facility] Work Phone: 06-17-2020 COVID-19, MODERNA BL UE border, Primary or Immunocompromised, (age 12y+), IM, 100 mcg/0.5mL Rocio Ruiz MD Work Phone: [facility] Work Phone: 01-11-2020 influenza, injectabl e, quadrivalent, preservative free Rocio Ruiz MD Work Phone: [facility] Work Phone: 01-09-2019 influenza, injectabl e, quadrivalent, preservative free Rocio Ruiz MD Work Phone: [facility] Work Phone: 01-06-2018 influenza, injectabl e, quadrivalent, preservative free [facility] 08-20-2016 pneumococcal polysaccharide [facility] [place] 08-20-2016 tetanus toxoid, redu jenny diphtheria toxoid, and acellular pertussis vaccine, adsorbed [facility] Payers Date Payer Category Payer Self-pay 2021 Unknown 2021 Unknown [id number] 2014 Private Health Insurance [facility] xxxxxxxxx 2014-[facility] [phone] [address] [place] [address] xxxxxxxxx [id number] 1961 Unknown [id number] 2.16.840.1.293809.3.579.2. 8 1961 Unknown [id number] 2.16.840.1.881893.3.579.2. 1961 Unknown [id number] 2.16.840.1.876683.3.579.2. 668 1961 Unknown [id number] 2.16.840.1.909108.3.579.2. 8 1961 Unknown [id number] 2.16.840.1.583560.3.579.2. 668 1961 Unknown [id number] 2.16.840.1.423507.3.579.2. 627 1961 Unknown [id number] 2.16.840.1.686884.3.579.2. 627 1961 Unknown [id number] 2.16.840.1.541068.3.579.2. 627 Private Health Insurance [id number] Unknown [id number] 2.16.840.1.570434.3.579.2. 462 Unknown [id number] 2.16.840.1.552460.3.579.2. 462 Unknown [id number] 2.16.840.1.506697.3.579.2. 462 Unknown [id number] 2.16.840.1.033307.3.579.2. 462 Unknown [id number] 2..840.1.268450.3.579.2. 462 Unknown [id number] 2.16.840.1.774553.3.579.2. 462 Unknown [id number] 2.16.840.1.471619.3.579.2. 462 Unknown [id number] 2.16.840.1.329739.3.579.2. 462 Unknown [id number] 2.16.840.1.953524.3.579.2. 462 Unknown [id number] 2.16.840.1.520103.3.579.2. 462 Unknown [id number] 2.16.840.1.573608.3.579.2. 462 Unknown [id number] 2.16.840.1.206655.3.579.2. 462 Unknown [id number] 2.16.840.1.431049.3.579.2. 462 Unknown [id number] 2.16.840.1.995987.3.579.2. 462 Unknown [id number] 2.16.840.1.349239.3.579.2. 462 Unknown [id number] 2.16.840.1.929874.3.579.2. 462 Unknown [id number] 2.16.840.1.302543.3.579.2. 462 Unknown [id number] 2.16.840.1.454725.3.579.2. 462 Unknown [id number] Unknown [id number] Social History Date Type Detail Facility Start: 08-08-2018 End: 10-03-2024 Tobacco smoking status NHIS Current every day smoker [place] Start: 03-28-1982 End: 03-28-2022 History of tobacco use Cigarette [place] Start: 08-08-2018 End: 03-06-2022 Cigarettes smoked current (pack per day) - Reported [place] Start: 08-08-2018 End: 10-12-2022 Alcohol intake No [place] Sex Assigned At Not on file [place] Start: 01-09-2019 End: 01-02-2023 Tobacco use and exposure Smokeless tobacco non-user [employer] Work Phone: Start: 2021 End: 03-06-2022 Alcohol intake Current non-drinker of alcohol (finding) [employer] Work Phone: Start: 07-11-2020 End: 02-06-2022 History SDOH Alcohol Frequency 2 [employer] Work Phone: Start: 07-11-2020 End: 02-06-2022 History SDOH Alcohol Std Drinks 1 [employer] Work Phone: Start: 12-26-2019 History SDOH Alcohol Comment rarely [employer] Work Phone: Start: 01-09-2019 History SDOH Physical Activity DPW 0 [employer] Work Phone: Start: 08-03-2021 End: 02-06-2022 History SDOH Financial 5 [employer] Work Phone: Start: 1960 Sex Assigned At Male [facility] Start: 09-16-2021 End: 11-14-2022 Exposure to SARS-CoV-2 (event) Not sure [facility] How hard is it for y ou to pay for the very basics like food, housing, medical care, and heating Not hard at all [facility] (I/We) worried wheth er (my/our) food would run out before (I/we) got money to buy more. Never true [facility] Start: 12-14-2021 Gender identity Identifies as male gender (finding) [facility] Start: 12-14-2021 Sexual orientation Heterosexual (finding) [facility] Start: 09-14-2022 End: 05-28-2024 Tobacco smoking status NYIS Occasional tobacco smoker [facility] How often to you hav e a drink containing alcohol? Monthly or less [facility] How many standard drinks containing alcohol do you have on a typical day? 1 or 2 [facility] How often do you hav e 6 or more drinks on 1 occasion? Never [facility] Start: 10-10-2022 End: 01-02-2023 Tobacco smoking status NYIS Ex-smoker [facility] Start: 03-28-1982 End: 03-28-2022 History of tobacco use Current smoker [facility] Start: 10-10-2022 End: 07-31-2023 Alcohol intake Current drinker of alcohol (finding) [facility] Within the last year , have you been afraid of your partner or ex-partner? No [facility] Start: 12-10-2022 Alcohol Comment occassionally [facility] Start: 02-06-2023 End: 06-06-2023 Tobacco smoking status [facility] Unknown if ever smoked [facility] Start: 12-24-2023 Tobacco smoking status Heavy tobacco smoker (finding) [facility] Sexual Orientation Maxine phillips [facility] Start: 09-27-2022 End: 06-02-2024 Sex Male (finding) [facility] Medical Equipment Procedure Code Equipment Code Equipment Origin al Text Equipment Identifier Dates Iliofemoral vein stent ()[id number] [id number] Start: 02-12-2023 Iliofemoral vein stent ()[id number] [id number] Start: 02-12-2023 Goals Date Patient Goal Desired [...] Functional status Activity Abili ty Standby Assist [facility] Work Phone: 02-13-2023 Functional status Ambulates [facility] Work Phone: Mental Status Date Assessment Result Facility 02-13-2023 Cognitive function Level Of Cons ciousness Awake;Alert;Appropriate;Follow s Commands [facility] Work Phone: 02-13-2023 Cognitive function Voice/Name [facility] Work Phone: Clinical Notes 11-27-2021 to 10-12-2024 Note Date & Type Note Facility 10-12-2024 Radiology Diagnostic study note [facility] Imaging Services [address] [place], [place] [id number] L/S Spine Min 4 Views MR#: [id number] Acct: [id number] Name: CORRIE QUEEN Rep #: [id number] : 1960 M 64 From: Vernon Acuña MD PCP: Dr. 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 TECHNIQUE: L/S SPINE MIN 4 VIEWS COMPARISON: None FINDINGS: Curvature: Minimal levoconvex scoliosis. Other findings: Moderate degree of disc space narrowing at the L5-S1 level. Moderate degree of disc space narrowing at the L2-L3 and L4-L5 levels. Anterior spondylosis. Other: Facet joint osteoarthritis and hypertrophy. There is evidence of a covered stent involving the left common iliac external iliac and common femoral artery. RAD/L/S Spine Min 4 Views IMPRESSION: Disc space narrowing and spondylosis. Facet joint osteoarthritis. Reading Location: [facility] CC: RUBI Johnston; Dr. Justice Bailey, ~ Radiological Equipment Specialist: Signed [facility] 10-03-2024 Radiology Diagnostic study note [facility] Imaging Services [address] [place] [address] Abdomen/Pelvis W IV Cont ONLY MR#: [id number] Acct: [id number] Name: CORRIE QUEEN Rep #: [id number] : 1960 M 64 From: Jairo Elmore MD PCP: Dr. Justice Bailey, Status: RE G ER Study:Abdomen/Pelvis W IV Cont ONLY Date of E xam: 10/03/24 Exam# [id number] Ordering Dr: Kelvin Luque MD PROCEDURE: ABDOMEN/PELVIS W IV CONT ONLY 10/03/2024 REASON FOR EXAM: FLANK PAIN, RIGHT LOWER QUADRANT PAIN TECHNIQUE: ABDOMEN/PELVIS W IV CONT ONLY Coronal and Sagittal reconstruction series were provided. CONTRAST: Isovue 370 VOLUME: 90 mL One or more dose reduction techniques were used (e.g., Automated exposure control, adjustment of the mA and/or kV according to patient size, use of iterative reconstruction technique. RADIATION DOSE SUMMARY: CTDlvol: 16.99 mGy DLP: 93.92 mGycm COMPARISON: August 02, 2024. FINDINGS: Lung bases: Dependent changes in the posterior lungs. Liver: Hepatomegaly and liver steatosis. The liver measures 20 cm in length. Gallbladder: Status post cholecystectomy. No biliary dilation. Spleen: Unremarkable. Pancreas: Unremarkable. Adrenals: Unremarkable. Kidneys: No hydronephrosis. Bilateral kidney cysts with the largest measures 2.5 cm. No nephrolithiasis. Bladder: Unremarkable. Reproductive Organs: Unremarkable. Bowel: No bowel wall thickening. No bowel obstruction. Sigmoid colon diverticulosis. Appendix: Normal. Lymph nodes: No lymphadenopathy. Vasculature: Status post placement of left iliac vein stent. Atherosclerotic calcifications of the aorta and iliac arteries. No aneurysm. Peritoneum / Retroperitoneum: No free air or free fluid. Bones: No acute bony abnormalities. CT/Abdomen/Pelvis W IV Cont ONLY IMPRESSION: No acute abdominopelvic abnormalities. Liver steatosis and hepatomegaly. Reading Location: [facility] CC: Dr. Justice Bailey DO; Dr. Ludy Luque MD ~ Radiological Equipment Specialist: Signed [facility] 08-11-2024 Evaluation note Diagnosis Onset Date Resolution Sinusitis acute August 11 3:23pm Musculoskeletal back pain inactive October 08, 2024 8:45am Degenerative disc disease (DDD) of lumbar region with discogenic back pain acute Septem beckie 2024 9:19am Lumbar radiculopathy acute Sept ember 2024 9:19am [facility] Work Phone: 1(328) 655-831506-17-2025 [facility] to [facility] [place], [place] [address] OFFICE VISIT Date of Service: 08/11/24 MR#: [id number] Acct: [id number] Name: CORRIE QUEEN Rep #: [id number] : 1960 Provider: Dr. Sorin Bailey DO Age/Sex: 63/M Location: [facility] Status: Signed Intake Vital Signs 08/02/24 08:47 [...] RIGHT Chief Complaint: eyes pressure and congestion Waste Machine Tender Required: No Accompanied by: Self Is patient in pain?: Yes (headache and eyes are uncomfortable ) Pain scale (1- 10): 4 Allergies meperidine (From Demerol) Adverse Reaction [...] for problems with his eyes being itchy andrunny. His head being congested and having significant [...] change in bowel habits, constipation, cramping, diarrhea,nausea/dyspepsia orvomiting Genitourinary Male: No burning urination, painful urination, [...] Recurrence: non-recurrent Sinusitis location: maxillary Qualified Code(s): J01.00- Acute maxillary sinusitis, unspecified Plan: I have had nursing give him an injection of Kenalog 40 mg and started him on amoxicillin. 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 Justice Bailey DO Status: RE G ER Study:Abdomen/Pelvis without Cont Date of Exa m: 08/02/24 Exam# [id number] Ordering Dr: Karine Hawkins DO PROCEDURE: ABDOMEN/PELVIS [...] steatosis. Reading Location: [facility] CC: Dr. Justice Bailey, DO; Dr. 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 June 8:13am Pituitary macroadenoma chronic Ma y 2024 8:13am Smoker chronic July 17, 2024 8:13am Sinusitis acute August 11 3:23pm [facility] Work Phone: 1(778) 921-656105-23-2025 Evaluation note* Diagnosis Onset Date Resolution Status Admit Date Hypercalcemia chronic July 17, 2 025 8:13am Hypogonadism 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 June 8:13am 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 June 8:13am Pituitary macroadenoma chronic Ma y 2024 8:13am Smoker chronic July 17, 2024 8:13am Sinusitis acute August 11 3:23pm Musculoskeletal back pain acute October 08, 2024 8:45am [facility] Work Phone: 1(725) 121-416205-23-2025 Evaluation note* Diagnosis Onset Date Resolution Status Admit Date Hypercalcemia chronic July 17, 2 025 8:13am Hypogonadism 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 June 8:13am 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 June 8:13am Pituitary macroadenoma chronic Ma y 2024 8:13am Smoker chronic July 17, 2024 8:13am Sinusitis acute August 11 3:23pm Musculoskeletal back pain inactive October 08, 2024 8:45am [facility] Work Phone: 1(180) 725-194604-03-2025 Evaluation note* Diagnosis Onset Date Resolution Status Admit Date Strain of lumbar region acute A pri2024 12:52pm Hypercalcemia chronic July 17, 2 025 8:13am Hypogonadism 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 June 8:13am 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 June 8:13am Pituitary macroadenoma chronic Ma y 2024 8:13am Smoker chronic July 17, 2024 8:13am [facility] Work Phone: 1(982) 849-421504-03-2025 Evaluation note* Diagnosis Onset Date Resolution Status Admit Date Strain of lumbar region acute A pri2024 12:52pm Hypercalcemia chronic July 17, 2 025 8:13am Hypogonadism 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 June 8:13am 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 June 8:13am Pituitary macroadenoma chronic Ma y 2024 8:13am Smoker chronic July 17, 2024 8:13am Sinusitis acute August 11 3:23pm [facility] Work Phone: 1(859) 192-720702-17-2025 Chief complaint+Reason for visit Narrative * Chief [...] 13am Smoker July 17, 2024 8:13a m [facility] Work Phone: 1(953) 610-544102-17-2025 Chief complaint+Reason for visit Narrative * Chief [...] m Sinusitis August 11, 2024 3:23 pm [facility] Work Phone: 1(887) 376-698112-31-2024 Evaluation note* Diagnosis Onset Date Resolution Status [...] lumbar region acute A pril 2024 12:52pm [facility] Work Phone: 1(919) 652-719906-06-2024 Telephone encounter Note* Telephone Encounter - Janette Calderon - 08/01/2023 4:13 PM EDT Message released to patient as written. Patient's further questions if applicable: Patient voiced understanding. Stated he will pick his medication up tomorrow. Please have clinical team call patient to schedule to have testosterone levelschecked. Were all questions from office addressed or relayed to the patient from encounter: Yes [id number] Miscellaneous Notes* Telephone Encounter - Janette Calderon [...] after starting testosterone treatment documented in this encounterSSelect Medical [facility] Rehabilitation HospitalNnfcjj11-90-1063 Telephone encounter Note* Telephone Encounter - Rocio [...] checked 2 months after starting testosterone treatment [facility] HospitalUvweno68-10-3384 History of Present illness Narrative* Rocio Ruiz MD - 07/31/2023 9:20 AM EDT Images from the original note were not included. 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 Monge , but has missed his [...] of pituitary gland and craniopharyngeal duct (pouch) ([facility]) Chest pain, unspecified Chills 05/28/2022 Chronic flank pain Chronic pain Diverticulitis DVT (deep venous thrombosis) ([facility]) 2022 left leg Esophageal reflux Essential [...] and unspecified hyperlipidemia Other anterior pituitary disorders ([facility]) Other testicular hypofunction Pituitary tumor Pyelonephritis [...] the signing physician directly. documented in this encounterSSelect Medical TriHealth Rehabilitation HospitalYdgkbe87-11-1248 Telephone encounter Note* Telephone Encounter - Angela Brandt RN - 06/19/2023 6:50 PM EDT We have been unable to reach your patient to schedule their testing. Test Name: Complete PFT pre and post bronchodilator 1st Attempt: 06/15/2023 mychart message 2nd Attempt: 06/19/2023 LVM. [facility] HospitalAolsjv66-31-9086 Miscellaneous Notes* Telephone Encounter - Angela Brandt RN - 06/19/2023 6:50 PM EDT We have been unable to reach your patient to schedule their testing. Test Name: Complete PFT pre and post bronchodilator 1st Attempt: 06/15/2023 mychart message 2nd Attempt: 06/19/2023 LVM. documented in this [facility]03-05-2024 Telephone encounter Note* Telephone Encounter - Isa Cali NP - 04/30/2023 9:36 AM EST Multiple no shows and cancellations. Needs seen in office for refills. Isa [facility] HospitalCuljqm48-02-6423 Miscellaneous Notes* Telephone Encounter - Isa Cali NP - 04/30/2023 9:36 AM EST Multiple no shows and cancellations. Needs seen in office for refills. Isa documented in this [facility]12-20-2023 Discharge summary Author Ryan Ceja [facility] February 13, 2023 3:02pm Note Date/Time February 13, 2023 1:56pm [facility] Medical Records Department [address] [place] [address] Discharge Summary 02/13/23 1345 MR#: [id number] Acct: [id number] Name: CORRIE QUEEN Rep #:[id number] : 1960 62 From: Dolly SHAFFER PCP: CHERYL BASILIO Status:ADM TAMMY Location: [place] [address] Providers Date of Admission: 02/12/23 Primary Care [...] mg tablet,extended release 1,000 mg PO QHS 12/06/23 rivaroxaban 20 mg tablet 20 mg PO [...] 77.5 H, Lymph % (Auto) 12.6 L, [place] % (Auto) 8.5, Eos % (Auto) 0.8, [...] appointment time please contact the office at [phone]. Meaningful Use Info Meaningful Use Diagnoses (Choose all that apply): VTE VTE Anticoag overlap given w/in hospital stay or rx'd at mt?: Yes Pt receive overlap for 5 days?: [...] appointment time please contact the office at [phone]. Discharge Orders/Prescriptions Prescriptions: New clopidogrel 75 mg [...] Dr. Ryan Ceja MD; CHERYL BASILIO~ Signed [facility] Work Phone: 1(461) 225-744912-20-2023 Progress note Author Ryan Ceja [facility] February 13, 2023 3:02pm Note Date/Time February 13, 2023 12:22pm [facility] Medical Records Department [address] [place] [address] Progress Note - Surgery 02/13/23 1218 MR#: [id number] Acct: [id number] Name: CORRIE QUEEN Rep #:[id number] : 1960 62 From: Dolly SHAFFER PCP: CHERYL BASILIO Status:ADM TAMMY [facility] Subjective Subjective Mr. Queen is s/p [...] 77.5 H, Lymph % (Auto) 12.6 L, [place] % (Auto) 8.5, Eos % (Auto) 0.8, [...] by Ryan Ceja MD> CC: ~ Signed [facility] Work Phone: 1(211) 304-208512-20-2023 Procedure [facility] 01-25-2023 Telephone encounter Note* Telephone Encounter - Rocio Ruiz MD - 01/25/2023 9:44 AM EST 90 day supply for cabergoiline sent [facility] HospitalKxivtz12-46-3392 Miscellaneous Notes* Telephone Encounter - Rocio Ruiz MD - 01/25/2023 9:44 AM EST 90 day supply for cabergoiline sent * Telephone Encounter - Lilia Hart - 01/25/2023 8:46 AM EST Name of caller: Corrie Contact phone number: [phone] Relationship to Patient: patient Provider: Dr Ruiz Practice: Endo Chief Complaint/Reason for Call: Pt states that Dr Mendoza was aware that the pt was on vacation and thatDr Mendoza wanted to know immediately when the pt came back in town so that a prescription of a 90 day supply of cabergoline (Dostinex) 0.5 MG tablet [[id number]] [facility]. Pt states is all out of the medication. Please advise Best time of day caller can be reached: Any Patient advised that office/PCP has 24-48 business hours to return their call: Yes documented in this encounterSSelect Medical TriHealth Rehabilitation HospitalIwvdkk30-76-8675 Telephone encounter Note* Telephone Encounter - Lilia Hart - 01/25/2023 8:46 AM EST Name of caller: Corrie Contact phone number: [phone] Relationship to Patient: patient Provider: Dr Ruiz Practice: Endo Chief Complaint/Reason for Call: Pt states that Dr Mendoza was aware that the pt was on vacation and thatDr Mendoza wanted to know immediately when the pt came back in town so that a prescription of a 90 day supply of cabergoline (Dostinex) 0.5 MG tablet [[id number]] would be call in to the [facility] pharmacy on file. Pt states is all out of the medication. Please advise Best time of day caller can be reached: Any Patient advised that office/PCP has 24-48 business hours to return their call: Yes [employer]Shtdit74-62-7577 Telephone encounter Note* Telephone Encounter - Alma Beebe MA - 01/08/2023 11:51 AM EST Submitted PA for testosterone pump 2 pumps daily for 150g for a 30 day supply. Waiting on determination from [facility]. [facility] [id number] Miscellaneous Notes* Telephone Encounter - Alma Beebe [...] ? Thanks * Telephone Encounter - Rocio Ruiz, MD - 01/04/2023 12:23 PM EST Images [...] 623 ng/dL 103 * Telephone Encounter - lAma Beebe MA - 01/04/2023 11:36 AM EST It looks like you sent the cabergoline in on 01/02/23, but does he take testosterone? I do not see it. * Telephone Encounter - Pacheco Dobson - 01/04/2023 11:05 AM EST Name of caller: Corrie Contact phone number: [phone] Relationship to Patient: patient Provider: Joseph Practice: [...] return their call: Yes documented in this [facility]11-10-2023 Telephone encounter Note* Telephone Encounter - Rocio Ruiz MD - 01/04/2023 12:38 PM EST Was informed by pharmacy that prescription for androgel needs prior auth , can you please help withthis ? Thanks [facility]11-10-2023 Telephone encounter Note* Telephone Encounter - Rocio [...] 01/03/2023 TESTOSTERONE 72 - 623 ng/dL [address] [place] [address]Vzivtt95-21-4356 Telephone encounter Note* Telephone Encounter - Alma Beebe MA - 01/04/2023 11:36 AM EST It looks like you sent the cabergoline in on 01/02/23, but does he take testosterone? I do not see it. [facility] Mjskuf39-36-5132 Telephone encounter Note* Telephone Encounter - Pacheco Bronson - 01/04/2023 11:05 AM EST Name of caller: Corrie Contact phone number: [phone] Relationship to Patient: patient Provider: Joseph Practice: [...] business hours to return their call: Yes [employer]Vcnmvv59-25-1944 Telephone encounter Note* Telephone Encounter - Rocio Ruiz MD - 01/02/2023 4:56 PM EST called and spoke with pharmacist, insurance will not cover a 90-day supply right now but will covera 30-day supply. Prescription for 30 days sent to the pharmacy, informed patient. [employer] MediaGlptkj88-43-2905 Miscellaneous Notes* Telephone Encounter - Rocio Ruiz [...] a call back CHANCE. documented in this encounterSumma Svohno02-85-4190 Telephone encounter Note* Telephone Encounter - Daphne [...] date. Pt requesting a call back CHANCE. [facility] HospitalAsljur48-18-1646 History of Present illness Narrative* Rocio Ruiz MD - 01/02/2023 10:40 AM EST Images from the original note were not included. [facility] ENDOCRINOLOGY [address] [facility] [address] Dept: [phone] Dept Loc: [phone] Visit type: Established Reason for Visit: Follow-up, [...] Cheryl Basilio MD Referring is PCP Previous Professor Of Genetics: Dr Sal & Dr Benito Initial [facility] endocrinology office visit: 2013 Last office visit: August 2021 1.Prolactinoma - Pituitary Macroadenoma: This was diagnosed in 10/2012 when he had presented with headaches , double vision to [facility] and pituitary MRI had shown a 3 [...] is supposed to have followed up with solar installation foreman Dr. Monge , but has missed his [...] of pituitary gland and craniopharyngeal duct (pouch) ([facility]) Chest pain, unspecified Chills 05/28/2022 Chronic flank pain Chronic pain Diverticulitis DVT (deep venous thrombosis) ([facility]) 2022 left leg Esophageal reflux Essential [...] the signing physician directly. documented in this [facility]11-08-2023 Miscellaneous Notes* Addendum Note - Jocelyne Meng - 01/02/2023 10:40 AM ESTAddended by: JOCELYNE MENG on: 01/03/2023 08:18 AM Modules accepted: Orders documented in this [facility]11-08-2023 Note* Addendum Note - Jocelyne Meng - 01/02/2023 10:40 AM ESTAddended by: JOCELYNE MENG on: 01/03/2023 08:18 AM Modules accepted: Orders [facility] HospitalCzmkjd16-35-7783 NoteAddended by: JOCELYNE MENG on: 01/03/2023 08:18 AM Modules accepted: [facility]11-08-2023 History of Present illness Narrative* Ziggy Arauz MD - 01/02/2023 8:30 AM EST 01/02/2023 Corrie Montano Evangelist 1960 Chief Complaint Patient presents with Post-op [...] for any concerns. . documented in this [facility]23 Hospital Discharge instructions* Discharge Instructions* Pacheco Ortiz [...] through Care Everywhere. * Bleeding After Surgery (Niuean) documented in this [facility]-2023 Emergency department Note* Pacheco Ortiz MD - 12/25/2022 6:40 PM EDT Emergency Department Encounter [facility] ED Patient: Corrie Queen : 1960 Date [...] MD [employer] Pacheco Ortiz MD 12/25/22 2017 * Paola Paula RN - 12/25/2022 6:40 PM EDT Patient ambulatory to room 4 presenting status post-op with drainage from site. Patient had an attempted thrombectomy of the left lower leg today with entry behind the left knee; he presents with shadowing on his jeans, and saturated dressing post-op. Surgery was around noon, [facility] and when he got [...] area, home w family documented in this [facility] Emergency department Triage note* Paola Paula RN - 12/25/2022 6:40 PM EDT Patient ambulatory to room 4 presenting status post-op with drainage from site. Patient had an attempted thrombectomy of the left lower leg today with entry behind the left knee; he presents with shadowing on his jeans, and saturated dressing post-op. Surgery was around noon, [facility] and when he got [...] preparing for surgery. Call light in reach. [facility] [id number] Emergency department Triage note* Sierra Brewer RN - 12/25/2022 6:40 PM EDT Bleeding subsided. Pt given dc instructions and follow up care. Pt verbalizes understanding. Pt ambindep to dc area, home w family [facility] [id number] Physician Emergency department Note* Pacheco Ortiz MD - 12/25/2022 6:40 PM EDT Emergency Department Encounter [facility] ED Patient: Corrie Queen : 1960 Date [...] for clarification. Pacheco Ortiz MD Acute [facility] Pacheco Ortiz MD 12/25/22 2017 [facility] [id number] Note* Nurse Navigation Note - Charley Miguel RN - 12/25/2022 4:58 PM EDT Patient upset wanting to leave,eye drops called to his pharmacy, patient transported out via w/c with the daughter [facility] [id number] Miscellaneous Notes* Nurse Navigation Note - Charley [...] PM EDT [facility] * Op Note - Ziggy Arauz MD [...] and exchanged over a wire for a 8-Haitian sheath tjo the level of the right [...] condition. ZIGGY ARAUZ MD documented in this [facility] Note* Nurse Navigation Note - Charley Miguel [...] Santiago notified they will place new orders. [facility] [id number] Note* Nurse Navigation Note - Charley Miguel RN - 12/25/2022 4:03 PM EDT Discharge instructions reviewed with the patient and the daughter, patient to follow up with after discharge, no further questions , patient instructed on surgical site care. [facility] [id number] Note* Perioperative Nursing Note - Charley Miguel RN - 12/25/2022 3:52 PM EDT Daughter called to the room [place] [id number] Note* Perioperative Nursing Note - Charley Miguel RN - 12/25/2022 2:49 PM EDT Family member updated Maury daughter regarding current status and bedrest [id number] NotePatient: Corrie Montano Evangelist Procedure Summary Date: 12/25/22 Room / Location: [facility] Operating Room Anesthesia Start: 1207 Anesthesia Stop: [...] discharged once all PACU criteria has been met.[facility]10-31-2023 NotePatient: Corrie Montano Evangelist Procedure Summary Date: 12/25/22 Room / Location: [facility] Operating Room Anesthesia Start: 1207 Anesthesia Stop: 1414 Procedures: LEFT LEG VENOGRAM (Left) TRANSCATHETER PLACEMENT OF AN INTRAVASCULAR STENT(S), OPEN OR PERCUTANEOUS INITIAL VEIN (Left) Diagnosis: 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 [facility] PONV Patient received an inhalational anesthetic [...] Allowed opportunity for questions and acknowledgement of understanding.[facility]10-31-2023 Note* Nurse Navigation Note - Charley Miguel RN - 12/25/2022 2:27 PM EDT [facility] [id number] Hospital Discharge instructions* Discharge Instructions* Pacheco Santiago [...] please call our office. documented in this [facility]-31-2023 NoteAirway Date/Time: 12/25/2022 12:12 PM Urgency: scheduled General Information and Staff Patient location during procedure: Procedural Resident/MAIL DELIVERER: FELISHA Winn CRNA Performed: MAIL DELIVERER Performed by: FELISHA Winn CRNA Authorized by: FELISHA Winn CRNA Indications and Patient Condition Indications for airway management: anesthesia Sedation level: RSI Preoxygenated: yes Patient position: sniffing MILS maintained throughout Mask difficulty assessment: 1 - vent by mask Final Airway Details Final airway type: endotracheal airway Successful airway: ETT Cuffed: yes Successful intubation technique: video laryngoscopy Endotracheal tube insertion site: oral Blade: [place] scope Blade size: #3 ETT size (mm): 8.0 Placement verified by: chest auscultation Measured from: teeth ETT to teeth (cm): 22 Number of attempts at approach: [address] [place], [place] 7734210-31-2023 Attending History and physical note* Ziggy Arauz [...] to proceed as planned. Source Note - FELISHA Mack CNP - [...] OPEN OR PERCUTANEOUS INITIAL VEIN (Left) Location: [facility] Operating Room Surgeons: Ziggy Arauz MD Chief [...] who we are asked to see/evaluate by [facility] for pre-operative evaluation prior to . LEFT ILIOFEMORAL DEEP VEIN THROMBOSIS, THROMBECTOMY AND STENTING (Left) [85202 CPT(R)] TRANSCATHETER PLACEMENT OF AN INTRAVASCULAR STENT(S), OPEN OR PERCUTANEOUS INITIAL VEIN (Left) [57823 CPT(R)] Anesthesia type: General The patient is [...] office note 12/10/2022 ? Denies history of DC, CAD, CHF, TIA, CVA Past Medical History: Past Medical History: 09/15/2020: Abscess of scrotum Comment: Last Assessment & Plan: Urology office was contacted and I spoke to the nurse practitioner Farznaa and she was going to see if they could rearrange some schedules to get him in [place]. She was going to call and talk with Corrie. 02/27/2022: Acute cystitis without hematuria No date: Anxiety Comment: patrick with surgery No date: Benign neoplasm of pituitary gland and craniopharyngeal duct (pouch) ([facility]) No date: Chest pain, unspecified 05/28/2022: Chills No date: Diverticulitis 2022: DVT (deep venous thrombosis) ([facility]) Comment: left leg No date: Esophageal [...] hyperlipidemia No date: Other anterior pituitary disorders (HCC) No date: Other testicular hypofunction No date: [...] (1,000 mg) by mouth daily. 10/31/22 Cheryl Baislio MD rivaroxaban (Xarelto) 20 MG tablet Take [...] Electronically signed by: Carissa Romero APRN - AUDIO VISUAL DIRECTOR Date: 12/13/2022 at 10:28 AM [facility] [id number] Note* Op Note - Ziggy Arauz MD [...] and exchanged over a wire for a 8-Haitian sheath tjo the level of the right [...] room in stable condition. ZIGGY ARAUZ MD [facility] [id number] NoteH&P reviewed. The patient was examined and [...] current symptoms. He chooses to proceed as planned.[facility] 12-25-2022 NoteOPERATIVE REPORT SURGEON: ZIGGY ARAUZ M.D. [...] and exchanged over a wire for a 8-Haitian sheath tjo the level of the right [...] recovery room in stable condition. ZIGGY ARAUZ, [facility]10-31-2023 History and physical note* Ziggy Arauz [...] Source Note - Carissa Romero APRN - AUDIO VISUAL DIRECTOR - 12/13/2022 10:00 AM EDT Images from the original note were not included. Comprehensive Pre Surgical History and Physical ? Name: Corire Queen : 1960 (Age-62 y.o.) Date of Service: Pt seen/examined on 12/13/2022 Procedure Information Date/Time: 12/25/22 1030 Procedures: LEFT ILIOFEMORAL DEEP VEIN THROMBOSIS, THROMBECTOMY AND STENTING (Left) TRANSCATHETER PLACEMENT OF AN INTRAVASCULAR STENT(S), OPEN OR PERCUTANEOUS INITIAL VEIN (Left) Location: [facility] Operating Room Surgeons: Ziggy Arauz MD Chief [...] who we are asked to see/evaluate by [facility] for pre-operative evaluation prior to . LEFT ILIOFEMORAL DEEP VEIN THROMBOSIS, THROMBECTOMY AND STENTING (Left) [49349 CPT(R)] TRANSCATHETER PLACEMENT OF AN INTRAVASCULAR STENT(S), OPEN OR PERCUTANEOUS INITIAL VEIN (Left) [60206 CPT(R)] Anesthesia type: General The patient is [...] office note 12/10/2022 ? Denies history of DC, CAD, CHF, TIA, CVA Past Medical History: [...] date: Diverticulitis 2022: DVT (deep venous thrombosis) (HCC) Comment: left leg No date: Esophageal reflux [...] hyperlipidemia No date: Other anterior pituitary disorders (HCC) No date: Other testicular hypofunction No date: [...] OPEN OR PERCUTANEOUS INITIAL VEIN (Left) Location: [facility] Operating Room Surgeons: Ziggy Arauz MD Chief [...] who we are asked to see/evaluate by [facility] for pre-operative evaluation prior to . LEFT ILIOFEMORAL DEEP VEIN THROMBOSIS, THROMBECTOMY AND STENTING (Left) [87472 CPT(R)] TRANSCATHETER PLACEMENT OF AN INTRAVASCULAR STENT(S), OPEN OR PERCUTANEOUS INITIAL VEIN (Left) [94406 CPT(R)] Anesthesia type: General The patient is [...] office note 12/10/2022 ? Denies history of DC, CAD, CHF, TIA, CVA Past Medical History: [...] of pituitary gland and craniopharyngeal duct (pouch) ([facility]) No date: Chest pain, unspecified 05/28/2022: Chills No date: Diverticulitis 2022: DVT (deep venous thrombosis) ([facility]) Comment: left leg No date: Esophageal reflux No date: Essential hypertension, benign 11/27/2021: Flank pain Comment: 11/2021 ECG no significant change from prior 2013 (possible old infarct). NSR Troponin negative. Echocardiogram [...] hyperlipidemia No date: Other anterior pituitary disorders (HCC) No date: Other testicular hypofunction No date: [...] OPEN OR PERCUTANEOUS INITIAL VEIN (Left) Location: [facility] Operating Room Surgeons: Ziggy Arauz MD Chief [...] who we are asked to see/evaluate by [facility] for pre-operative evaluation prior to . LEFT ILIOFEMORAL DEEP VEIN THROMBOSIS, THROMBECTOMY AND STENTING (Left) [08606 CPT(R)] TRANSCATHETER PLACEMENT OF AN INTRAVASCULAR STENT(S), OPEN OR PERCUTANEOUS INITIAL VEIN (Left) [53458 CPT(R)] Anesthesia type: General The patient is [...] deep vein thrombosis (DVT) of iliofemoral vein ([facility]) This is now a left iliofemoral chronic [...] office note 12/10/2022 ? Denies history of DC, CAD, CHF, TIA, CVA Past Medical History: [...] of pituitary gland and craniopharyngeal duct (pouch) ([facility]) No date: Chest pain, unspecified 05/28/2022: Chills No date: Diverticulitis 2022: DVT (deep venous thrombosis) ([facility]) Comment: left leg No date: Esophageal [...] hyperlipidemia No date: Other anterior pituitary disorders (HCC) No date: Other testicular hypofunction No date: [...] 12/13/2022 at 10:28 AM documented in this [facility]31-2023 Attending History and physical note* Ziggy Arauz [...] OPEN OR PERCUTANEOUS INITIAL VEIN (Left) Location: [facility] Operating Room Surgeons: Ziggy Arauz MD Chief [...] who we are asked to see/evaluate by [facility] for pre-operative evaluation prior to . LEFT ILIOFEMORAL DEEP VEIN THROMBOSIS, THROMBECTOMY AND STENTING (Left) [78717 CPT(R)] TRANSCATHETER PLACEMENT OF AN INTRAVASCULAR STENT(S), OPEN OR PERCUTANEOUS INITIAL VEIN (Left) [44452 CPT(R)] Anesthesia type: General The patient is [...] office note 12/10/2022 ? Denies history of DC, CAD, CHF, TIA, CVA Past Medical History: [...] of pituitary gland and craniopharyngeal duct (pouch) ([facility]) No date: Chest pain, unspecified 05/28/2022: Chills No date: Diverticulitis 2022: DVT (deep venous thrombosis) ([facility]) Comment: left leg No date: Esophageal [...] hyperlipidemia No date: Other anterior pituitary disorders (HCC) No date: Other testicular hypofunction No date: [...] Electronically signed by: Carissa Romero APRN - AUDIO VISUAL DIRECTOR Date: 12/13/2022 at 10:28 AM [facility] [id number] NoteH&P reviewed. The patient was examined and there are no changes to the H&P.[facility]10-31-2023 NoteH&P reviewed. The patient was examined and there are no changes to the H&P.[facility] 12-22-2022 Hospital Discharge instructions* Discharge Instructions* Pacheco Negron MD - 12/22/2022 10:12 AM EDT Tylenol for pain. Call your PCP Sunday 12/24 for results from yesterday's urine culture. * Attachments The following attachments cannot be sent through Care Everywhere. * Flank Pain ED (Niuean) documented in this [facility]10[facility]28-20[facility] Emergency department Note* Estefany Dunlap RN - 12/22/2022 8:[address] Negron the pt was prescribed Cipro yesterday by Dr. Basilio. Pt had not previously mentioned this to ED providers. Dr. Negron at bedside again speaking with pt. Estefany Dunlap RN 12/22/22 0857 [facility] [id number] Emergency department Note* Estefany Dunlap RN - [...] UA. He then saw Dr. Basilio in [place] yesterday and had another UA as well [...] culture pending KUB and ultrasound unremarkable per [facility]. Patient is concerned that he [...] of pituitary gland and craniopharyngeal duct (pouch) ([facility]) Chest pain, unspecified Chills 05/28/2022 Chronic flank pain Chronic pain Diverticulitis DVT (deep venous thrombosis) ([facility]) 2022 left leg Esophageal reflux Essential [...] Culture. Procedure Abnormality Status --------- ------ Complete Urinalysis[[id number]] Normal Final result Please view results for [...] determinants of health affecting care: Distrust of [facility] and his PCP ED Medications managed: Pain [...] AM PATIENT REFERRED TO: Cheryl Basilio MD [address] [place] [address] [address] [facility] [address] In 2 days DISCHARGE MEDICATIONS: New Prescriptions [...] Negron MD 12/22/22 1251 documented in this [facility]10[facility]28-20[facility] Emergency department Note* Estefany Dunlap RN - 12/22/2022 8:38 AM EDT ED medic to room to start IV/obtain labs per orders after physician spoke with pt at length about plan of care. Pt questioning medic why we are doing bloodwork and wants to speak with Dr. Negron again. Dr. Negron back to room. Estefany Dunlap RN 12/22/22 0841 [facility] [id number] NoteED medic to room to start IV/obtain labs per orders after physician spoke with pt at length about plan of care. Pt questioning medic why we are doing bloodwork and wants to speak with Dr. Negron again. Dr. Negron back to room. Estefany Dunlap RN 12/22/22 0841[facility]10-28-2023 Emergency department Triage note * Estefany Dunlap [...] pt placed calls to the office/[facility] stating he needed IV abx specifically but was advised this is not indicated for negative UA. He then saw Dr. Basilio in [place] yesterday and had another UA as well as outpatient US and Xray. UA yesterday was again negative but was sent for culture. Outpatient imaging was all negative as well. Pt was prescribed Cipro in spite of negative results. Pt states his c/o are falling on deaf ears. He reports having chills and sweats this morning. Hestates he called the [facility] today and was told by the nurse to come to the ED to get a CT scan. Pt is concerned that he is having DVT surgery Saturday and that if he has an infection it will cause issueswith his procedure. Pt is A&Ox3, respirations even and unlabored, skin warm and dry, no s/s of distress noted. Pt negative/irritable during triage. [facility] [id number] Physician Emergency department Note* Pacheco Negron MD [...] culture pending KUB and ultrasound unremarkable per [facility]. Patient is concerned that he [...] of pituitary gland and craniopharyngeal duct (pouch) ([facility]) Chest pain, unspecified Chills 05/28/2022 Chronic flank pain Chronic pain Diverticulitis DVT (deep venous thrombosis) ([facility]) 2022 left leg Esophageal reflux Essential [...] Culture. Procedure Abnormality Status --------- ------ Complete Urinalysis[[id number]] Normal Final result Please view results for [...] determinants of health affecting care: Distrust of [facility] and his PCP ED Medications managed: Pain [...] AM PATIENT REFERRED TO: Cheryl Basilio MD [address] [place] [address] [address] [place] [address] In 2 days DISCHARGE MEDICATIONS: New Prescriptions [...] Medicine Provider Pacheco Negron MD 12/22/22 1251 [facility] [id number] Telephone encounter Note* Telephone Encounter - Farzana [...] Patient verbalizes understanding. States will go to [place] ED because has not had luck at [place]. Instructed to call back with any further questions or concerns. Reason for Disposition [1] Abdominal pain AND [2] age > 60 years Protocols used: Flank Bfww-[id number]-VT Doctors [id number] Miscellaneous Notes* Telephone Encounter - Farzana Samaniego [...] Patient verbalizes understanding. States will go to [place] ED because has not had luck at [place]. Instructed to call back with any further questions or concerns. Reason for Disposition [1] Abdominal pain AND [2] age > 60 years Protocols used: Flank Ekle-THKOI-OM documented in this encounterSSelect Medical [facility] Rehabilitation [id number] Telephone encounter Note* Telephone Encounter - Tayler Simpson MA - 12/18/2022 8:40 AM EDT Mychart message sent [place] [id number] Miscellaneous Notes* Telephone Encounter - Tayler Simpson MA - 12/18/2022 8:40 AM EDT [employer] message sent * Telephone Encounter - Cheryl [...] - 12/17/2022 9:13 AM EDT Vikki York. * Telephone Encounter - Leanne Perales MD [...] having fixed before then. documented in this encounterSSelect Medical [facility] Rehabilitation [id number] Telephone encounter Note* Telephone Encounter - Cheryl Basilio MD - 12/18/2022 7:33 AM EDT Please schedule visit to discuss. Thanks [facility] HospitalRgglgp16-50-6049 Telephone encounter Note* Telephone Encounter - Dat [...] call back with new or worsening symptoms. [facility] [id number] Miscellaneous Notes* Telephone Encounter - Dat Talbot [...] - 12/17/2022 9:13 AM EDT Vikki York. * Telephone Encounter - Leanne Perales MD [...] having fixed before then. documented in this encounterSSelect Medical [facility] Rehabilitation HospitalCghoyc85-09-1907 Telephone encounter Note* Telephone Encounter - Dat Talbot RN - 12/17/2022 2:57 PM EDT . Reason for Disposition MODERATE pain (e.g., interferes with normal activities or awakens from sleep) Protocols used: Flank Shix-VUFVY-TE Doctors [id number] Miscellaneous Notes* Telephone Encounter - Dat Talbot RN - 12/17/2022 2:57 PM EDT . Reason for Disposition MODERATE pain (e.g., interferes with normal activities or awakens from sleep) Protocols used: Flank Lzlm-DPKMK-MO documented in this encounterSSelect Medical [facility] Rehabilitation HospitalHegant17-87-2826 Telephone encounter Note* Telephone Encounter - Mary Garcia MA - 12/17/2022 9:13 AM EDT Notified Corrie. Doctors HospitalEcmfsx78-47-8714 Telephone encounter Note* Telephone Encounter - Leanne [...] else to offer him at this time. [facility] HospitalPmnuta72-51-9091 Telephone encounter Note* Telephone Encounter - Mary Garcia MA - 12/17/2022 8:02 AM EDT Pt reported that he was scheduled with urology last week but missed the appointment d/t needing to be seen for the blood clot. Advised him we need to get him in with urology chance after his surgery. UA results on your desk and order pended. Doctors [id number] Telephone encounter Note* Telephone Encounter - Sierra [...] issue he is having fixed before then. [facility] [place] MediaDtcmph48-61-9745 NotePatient: Corrie Queen Procedure Information Date/Time: 12/25/22 1030 Procedures: LEFT ILIOFEMORAL DEEP VEIN THROMBOSIS, THROMBECTOMY AND STENTING (Left) TRANSCATHETER PLACEMENT OF AN INTRAVASCULAR STENT(S), OPEN OR PERCUTANEOUS INITIAL VEIN (Left) Location: [facility] Operating Room Surgeons: Ziggy Arauz MD Past [...] of pituitary gland and craniopharyngeal duct (pouch) ([facility]) No date: Chest pain, unspecified 05/28/2022: Chills No date: Diverticulitis 2022: DVT (deep venous thrombosis) ([facility]) Comment: left leg No date: Esophageal [...] hyperlipidemia No date: Other anterior pituitary disorders (HCC) No date: Other testicular hypofunction No date: [...] SCAN (Final) Narrative Ordered by an unspecified provider.[facility]10-19-2023 Note Comprehensive Pre Surgical History and Physical ? Name: Corrie Queen : 1960 (Age-62 y.o.) Date of Service: Pt seen/examined on 12/13/2022 Procedure Information Date/Time: 12/25/22 1030 Procedures: LEFT ILIOFEMORAL DEEP VEIN THROMBOSIS, THROMBECTOMY AND STENTING (Left) TRANSCATHETER PLACEMENT OF AN INTRAVASCULAR STENT(S), OPEN OR PERCUTANEOUS INITIAL VEIN (Left) Location: [facility] Operating Room Surgeons: Ziggy Arauz MD Chief [...] who we are asked to see/evaluate by [facility] for pre-operative evaluation prior to . LEFT ILIOFEMORAL DEEP VEIN THROMBOSIS, THROMBECTOMY AND STENTING (Left) [02531 CPT(R)] TRANSCATHETER PLACEMENT OF AN INTRAVASCULAR STENT(S), OPEN OR PERCUTANEOUS INITIAL VEIN (Left) [34774 CPT(R)] Anesthesia type: General The patient is [...] for attempted left lois (more content not included)...[facility]10-19-2023 Note Comprehensive Pre Surgical History and Physical ? Name: Corrie Queen : 1960 (Age-62 y.o.) Date of Service: Pt seen/examined on 12/13/2022 Procedure Information Date/Time: 12/25/22 1030 Procedures: LEFT ILIOFEMORAL DEEP VEIN THROMBOSIS, THROMBECTOMY AND STENTING (Left) TRANSCATHETER PLACEMENT OF AN INTRAVASCULAR STENT(S), OPEN OR PERCUTANEOUS INITIAL VEIN (Left) Location: [facility] Operating Room Surgeons: Ziggy Arauz MD Chief [...] DEEP VEIN THROMBOSIS, THROMBECTOMY AND STENTING (Left) [29788 CPT(R)] TRANSCATHETER PLACEMENT OF AN INTRAVASCULAR STENT(S), OPEN OR PERCUTANEOUS INITIAL VEIN (Left) [23797 CPT(R)] Anesthesia type: General The patient is [...] for attempted left lois (more content not included)...[facility] [id number] Hospital Discharge instructions* Discharge Instructions* Kendra Sauer [...] (Blood Clots in the Legs) Discharge Instructions (Niuean) documented in this [facility]10[facility]13-[facility] Emergency department Note* Lorena Castillo RN - 12/07/2022 2:23 PM EDT Surgery resident at bedside. Lorena Castillo RN 12/07/22 1423 [facility] HospitalEnvvzc89-53-1300 Emergency department Note* Lorena Castillo RN - [...] EDT Emergency Department Encounter [facility] EMERGENCY DEPT Patient: Corrie Queen : 1960 [...] freeto contact the dictating provider for clarification.) Yolanad Patel DO [employer] Yolanda Patel DO 12/07/22 1806 * Munira Mcgregor RN - 12/07/2022 9:15 AM EDT Bed: 06 Expected date: Expected time: Means of arrival: Comments: Triage Munira Mcgregor RN 12/07/22 0931 documented in this [facility]13-2023 NoteVascular Surgery Consultation Note Reason for Consult: LLE DVT HISTORY OF PRESENT ILLNESS: The patient is a 62 y.o. male with past medical history of pituitary gland tumor, who presents to [facility] for an ongoing LLE DVT. Vascular surgery [...] a dose. Patient reports he was in [place] on 12/04 when he experienced an exacerbation [...] for Saturday 2:15pm with Dr Arauz in [place] for possible discussion about thrombectomy Past Medical [...] Housing Stability: Unknown (09/25 (more content not included)...[facility]10-13-2023 Emergency department Note* Lorena Castillo RN - 12/07/2022 1:33 PM EDT Vascular at bedside. Lorena Castillo RN 12/07/22 1333 [facility] HospitalQbctuf49-10-6743 Emergency department Note* Lorena Castillo RN - 12/07/2022 1:18 PM EDT Pt ambulated to restroom with steady and even gait. Lorena Castillo RN 12/07/22 1319 [facility] HospitalUyvtpc77-77-5350 Emergency department Note* Lorena Castillo RN - 12/07/2022 1:11 PM EDT Report from GARY Becerril. Lorena Castillo RN 12/07/22 [address]11 [address]gepsh35-45-3010 Emergency department Note* Munira Mcgregor RN - 12/07/2022 9:15 AM EDT Bed: 06 Expected date: Expected time: Means of arrival: Comments: Triage Munira Mcgregor RN 12/07/22 7167 [address]Slnjzc14-00-9281 Physician Emergency department Note* Yolanda Patel DO - 12/07/2022 9:15 AM EDT Emergency Department Encounter [facility] EMERGENCY DEPT Patient: Corrie Queen : 1960 [...] [employer] Yolanda Patel DO 12/07/22 [address] [employer] Phone: 1([phone] 255-792409-21-2023 History of Present illness Narrative* Cheryl Basilio MD - 11/15/2022 2:51 PM EDT Lasix documented in this encounterSSelect Medical [facility] Rehabilitation HospitalPkyvqk98-98-8625 Telephone encounter Note* Telephone Encounter - Farzana [...] one leg Protocols used: Leg Swelling and Qatit-GRJSX-NR [facility] HospitalNzbjoz57-96-3738 Telephone encounter Note* Telephone Encounter - Arjun Velarde MA - 11/15/2022 2:10 PM EDT Duplicate message, there is already 2 other encounters in regards to this. Pt will get results oncethey are reviewed by provider. [facility] HospitalHmksaa64-82-5231 Miscellaneous Notes* Telephone Encounter - Farzana Samaniego [...] one leg Protocols used: Leg Swelling and Aksnd-XLZPJ-ZU * Telephone Encounter - Arjun Velarde MA - 11/15/2022 2:10 PM EDT Duplicate message, there is already 2 other encounters in regards to this. Pt will get results oncethey are reviewed by provider. * Telephone Encounter - Dat Talbot RN - 11/15/2022 1:53 PM EDT S: Patient spoke with [facility] nurse regarding US results B: 11/14/22 US bilateral lower extremities A: Patient would like the results of his US done yesterday. Patient very upset that nobody has callhim. R: Call patient with results. Reason for Disposition Nursing judgment Protocols used: Information Only Call - No Yblefa-VZTSR-ZA documented in this [facility]-21-2023 Telephone encounter Note* Telephone Encounter - Farzana Samaniego RN - 11/15/2022 2:09 PM EDT Duplicate call Reason for Disposition Caller has already spoken with another triager and has no further questions Protocols used: No Contact or Duplicate Contact Eubt-BSVJP-NW [facility] HospitalTsplek25-45-4326 Miscellaneous Notes* Telephone Encounter - Farzana Samaniego RN - 11/15/2022 2:09 PM EDT Duplicate call Reason for Disposition Caller has already spoken with another triager and has no further questions Protocols used: No Contact or Duplicate Contact Fkxw-TDELM-DR documented in this encounterSSelect Medical Tri[facility] Rehabilitation HospitalJjztgi04-61-0028 Telephone encounter Note* Telephone Encounter - Dat [...] Protocols used: Information Only Call - No Juddqw-KVKVL-SF [facility] HospitalIatdwo78-85-7815 Miscellaneous Notes* Telephone Encounter - Shannan Rodriguez - 11/15/2022 10:19 AM EDT Name of caller: Corrie Contact phone number: [phone] Relationship to Patient: patient Provider: Kj Practice: [...] return their call: Yes documented in this encounterSSelect Medical TriHealth Rehabilitation HospitalIsepan64-35-7034 Telephone encounter Note* Telephone Encounter - Shannan Rodriguez - 11/15/2022 10:19 AM EDT Name of caller: Corrie Contact phone number: [phone] Relationship to Patient: patient Provider: Kj Practice: [...] business hours to return their call: Yes [facility] HospitalCcdtxs01-80-9985 Telephone encounter Note* Telephone Encounter - Nubia [...] call back with new or worsening symptoms. [facility] HospitalXxeczl99-05-4488 Miscellaneous Notes* Telephone Encounter - Nubia Gallo [...] Protocols used: Information Only Call - No Arseje-RCJVK-ZJ documented in this [facility]-20-2023 Telephone encounter Note* Telephone Encounter - Natacha [...] Protocols used: Information Only Call - No Vnnqhl-OXWTM-LZ [facility] HospitalSdlbpw38-31-0303 History of Present illness Narrative* Cheryl Basilio MD - 11/14/2022 11:00 AM EDT Images from the original note were not included. [facility] [address] [facility] [address] Dept: [phone] Dept Loc: [phone] Visit type: Established patient Reason for Visit: [...] alert. Cheryl Basilio MD documented in this [facility]09-20-2023 Instructions* Patient Instructions* Cheryl Basilio MD - 11/14/2022 11:00 AM EDT The number for [facility] Central Scheduling is [phone]. documented in this [facility]09-19-2023 Telephone encounter Note* Telephone Encounter - Khalida [...] period? N/A Protocols used: Leg Swelling and Wxylt-YILYI-NH Doctors HospitalKatzje10-28-7106 Miscellaneous Notes* Telephone Encounter - Khalida Currie [...] period? N/A Protocols used: Leg Swelling and Lgybz-FCDJA-DV documented in this encounterSSelect Medical [facility] Rehabilitation HospitalKonrsj14-26-0192 Telephone encounter Note* Telephone Encounter - Cheryl Basilio MD - 10/31/2022 9:28 PM EDT Ordered. Thanks Doctors HospitalNecztp57-01-5263 Miscellaneous Notes* Telephone Encounter - Cheryl Basilio MD - 10/31/2022 9:28 PM EDT Ordered. Thanks * Telephone Encounter - Mitzy Gipsonyer - 10/31/2022 10:54 AM EDT Ordering provider: Dr. Basilio Date of last office visit: 10/24/22 Date of next office visit: N/A Updated/Validated preferred pharmacy: Yes [id number] [phone] Patient instructed to contact the pharmacy prior [...] tab): 08/22/22 last written documented in this [facility]-06-2023 Telephone encounter Note* Telephone Encounter - Mitzy Velez - 10/31/2022 10:54 AM EDT Ordering provider: Dr. Basilio Date of last office visit: 10/24/22 Date of next office visit: N/A Updated/Validated preferred pharmacy: Yes [id number] [phone] Patient instructed to contact the pharmacy prior [...] refill (see medication tab): 08/22/22 last written Doctors HospitalHcxlbp53-37-3842 Miscellaneous Notes* Care Coordination - Unknown Case Management - 10/16/2022 4:01 PM EDT Patient Choice Patient Name: CORRIE QUEEN Date of : 1960 All Providers Sent Referral Name: [facility]ician [facility] Address: [facility] Anali Willis, [address] [address] Name: [facility] Address: [address] [place] [address] Name: [facility] Phone: [phone] Address: [address] [place] [address] [address] [place] [address] Name: [facility] Phone: [phone] Address: [address] [place] [address] Name: [facility] Phone: [phone] Address: [address] [place] [address] Name: [facility] Phone: [phone] Address: [address] [place] [address] Name: [facility] Phone: [phone] Address: [address] [place] [address] Name: [facility] [place] (All Offices) Phone: [phone] Address: [address] [place] [address] Name: [facility] Phone: [phone] Address: [address] [place] [address] Name: [facility] [place] Phone: [phone] Address: [address] [address] Name: [facility] Phone: [phone] Address: [address] [place] [address] Name: [facility] Centralized Intake Phone: [phone] Address: [address] [place] [address] Name: [facility] Phone: [phone] Address: [address] [facility],[address] [place] [address] * Home Care - Brian Chanel RN [...] service location. Referrals have been sent via [facility]. Liaison to discuss available agencies to accept [...] included. Care Management Progress Note [facility] with [facility] yesterday afternoon. They are [...] 3-7. Tentative discharge [facility] when medically [facility]. Will monitor therapy evals for equipment and therapy needs at discharge. Discharge Milestones and Delays Expected Date/Time: 10/15/[address] discharge order Complete med reconciliation Case mgmt discharge readiness Clinical Stability Diagnsotic Workup Expected Discharge History Expected Date/Time Set By Reviewed At 10/15/2022 LEIGH Goldstein 10/15/2022 9:55 AM 10/14/2022 Natacha Frankel, DO 10/12/2022 10:32 PM 10/14/2022 An Jostin, DO 10/12/2022 9:10 PM Length of Stay [...] Did call and speak with Xiomara from [facility] specialty pharmacy and requested that PA be initiated onxarelto. She will contact [facility] once obtained. Updated attending of this. * Care Coordination - Natacha Deluna RN - 10/15/2022 9:34 AM EDT Per meds to beds xarelto will require PA [phone]. * Care Coordination - Natacha Deluna RN - 10/15/2022 6:33 AM EDT Images from the original note were not included. Care Management Progress Note Family [facility] Awaiting call from meds [...] new script for 30 day supply to [facility] in [place]. Called and spoke with pharmacist at [facility] and 30 day script has already been [...] 3:56 PM EDT Called [facility] in [place]. Xarelto script does require PA. Had pharmacist run without insurance and only use FREE 30 day copay card and was able to go through with no cost. Returned to patient's room. Met with he and his daughter Isa. Apologized for earlier misunderstanding. Explained thathad spoken to [facility] in [place] and his xarelto had gone through with [...] Patient and daughter requesting to speak with auto rental supervisor about separate incident. Hairspring Inspector updated. Discharge plan is home when medically stable. * Care Coordination - Natacha Deluna RN - 10/13/2022 3:50 PM EDT Care Managment Initial Assessment Date: 10/13/2022 Patient Name: Corrie Queen : 1960 Patient Information Source of Information: Patient Name/Contact Information: ISA HENSLEY [phone] DAUGHTER MAURY QUEEN DAUGHTER [phone] Cognition/Language: WFL - Within Functional Limits Permission given to speak with patient ambulatory service representative/caregiver as indicated: Yes Confirmation of Payer [...] Daily Living Prescription Coverage: Yes Pharmacy Used: [facility] [place] Medication Management: Independent Transportation/Shopping: Independent Transportation Mode: [...] consulted. Daily labs. Spoke with attending via [employer] chat and wanted to know costs of [...] stated we were no different here from [facility] and he wanted to speak with the [...] today for complete details. documented in this [place] [address]-22-2023 Note* Care Coordination - Unknown Case Management - 10/16/2022 4:01 PM EDT Patient Choice Patient Name: CORRIE QUEEN Date of : 1960 All Providers Sent Referral Name: [facility], [facility] Address: [facility] Anali Willis, [address] [address] Name: [facility] Address: [address] [place] [address] Name: [facility] Phone: [phone] Address: [address] [place], [place] [address] [place] [address] Name: [facility], [facility]ian[facility] Phone: [phone] Address: [address] [place] [address] Name: [facility] Phone: [phone] Address: [address] [place] [address] Name: [facility] Phone: [phone] Address: [address] [place] [address] Name: [facility] Phone: [phone] Address: [address] [place] [address] Name: [facility] (All Offices) Phone: [phone] Address: [address] [address] Name: [facility] Phone: [phone] Address: [address] [place] [address] Name: [facility] ([facility] [place] Phone: [phone] Address: [address] [address] Name: [facility] Phone: [phone] Address: [facility] [place] [address] Name: [facility] Centralized Intake Phone: [phone] Address: [address] [place] [address] Name: [facility] Phone: [phone] Address: [address] [place], [place] [address] [address] StreetIvghmc73-03-9296 Note* Home Care - Brian Chanel RN - 10/16/2022 4:01 PM EDT Discussed with patient the accepting agencies for home care. The patient states that he was given aprescription from the pharmacy for insulin and is so upset right now that he doesn't even want the home care any longer. Notified the agencies. Referral is close out. Home care to sign off. [address]Rjcnsx79-74-9560 Note* Care Coordination - Unknown Case Management - 10/16/2022 4:01 PM EDT Patient Choice Patient Name: CORRIE QUEEN Date of : 1960 All Providers Sent Referral Name: [facility] Address: [facility] Anali [address] [address] Name: [facility] Address: [address] [place] [address] Name: [facility] Phone: [phone] Address: [address] [place] [address] [address] [place] [address] Name: [facility] Phone: [phone] Address: [address] [place] [address] Name: [facility] Phone: [phone] Address: [address] [place] [address] Name: [facility] Phone: [phone] Address: [address] [place] [address] Name: [facility] Phone: [phone] Address: [address] [place] [address] Name: [facility] [place] (All Offices) Phone: [phone] Address: [address] [place] [address] Name: [facility] Phone: [phone] Address: [address] [place] [address] Name: [facility] [place] Phone: [phone] Address: [address] [address] Name: [facility] Phone: [phone] Address: [address] [place] [address] Name: [facility] Centralized Intake Phone: [phone] Address: [address] [place] [address] Name: [facility] Phone: [phone] Address: [address] [facility],[address] [place] [address] [facility] Vkiycy60-08-6671 Note* Home Care - Brian Chanel RN - 10/16/2022 4:01 PM EDT Discussed with patient the accepting agencies for home care. The patient states that he was given aprescription from the pharmacy for insulin and is so upset right now that he doesn't even want the home care any longer. Notified the agencies. Referral is close out. Home care to sign off. [facility] HospitalCkpjoj21-86-0572 Nurse Note* Nasra Bass RN - 10/16/2022 3:31 PM EDT Discharge instructions reviewed with patient. New prescriptions, follow up appointments and signs and symptoms also reviewed. Patient ambulated from unit with a friend. Patient to pick out hand prescriptions at hospital pharmacy. [facility] HospitalFwwrht36-25-5497 Nurse Note* Nasra Bass RN - 10/16/2022 3:31 PM EDT Discharge instructions reviewed with patient. New prescriptions, follow up appointments and signs and symptoms also reviewed. Patient ambulated from unit with a friend. Patient to pick out hand prescriptions at hospital pharmacy. documented in this [place] [address]-22-2023 Hospital Discharge instructions* Discharge Instr - Activity* Nasra Bass RN - 10/16/2022 3:21 PM EDT As tolerated * Appointments* Natacha Deluna RN - 10/16/2022 6:58 AM EDT TEAM LEAD SPOKE WITH TAYLER AT DR. BASILIO'S OFFICE ABOUT PRIOR AUTHORIZATION NEEDED FOR YOUR REFILLS FOR XARELTO. SHE WILL INITIATE THIS. SHE WILL CONTACT YOU IF THERE ARE ANY PROBLEMS. * Attachments The following attachments cannot be sent through Care Everywhere. * Deep Vein Thrombosis (Blood Clots in the Legs) Discharge Instructions (Niuean) * Going Home on Blood Thinners (Niuean) documented in this [place] [address]-22-2023 Note* Home Care - Brian Chanel RN - 10/16/2022 3:17 PM EDT Educated patient on Home Care and services available. Patient is agreeable to receiving home care services at this time. Patient was given choice of home care agencies available in the area and is agreeable to having referrals made with agencies that staff the patients service location. Referrals have been sent via [employer]. Liaison to discuss available agencies to accept case with patient upon receiving responses. Doctors HospitalOhmygw81-20-8629 Note* Home Care - Brian Chanel RN - 10/16/2022 3:17 PM EDT Educated patient on Home Care and services available. Patient is agreeable to receiving home care services at this time. Patient was given choice of home care agencies available in the area and is agreeable to having referrals made with agencies that staff the patients service location. Referrals have been sent via [employer]. Liaison to discuss available agencies to accept case with patient upon receiving responses. Doctors HospitalBdpprr63-65-2432 Hospital course Narrative* Tamara Turcios MD - [...] Your Medications These medications were sent to [facility] [address] [place] [address] Hours: Saturday to Saturday 10 am to 6 pm polyethylene glycol (PEG) 3350 17 g packet rivaroxaban 20 MG tablet senna-docusate sodium 8.6-50 MG tablet tamsulosin 0.4 MG 24 hr capsule DIET: Adult diet Regular ACTIVITY: No restriction. COMPLEXITY OF FOLLOW UP: [x] Moderate Complexity: follow up within 7-14 calendar days (355[address]) [] Severe Complexity: follow up within 7 calendar days (26417) FOLLOW UP TESTING, PENDING RESULTS OR REFERRALS AT TRANSITIONAL CARE VISIT: [] Yes [x] No PENDING STUDIES: none DISPOSITION: Home FACILITY/HOME CARE AGENCY NAME: Follow up with Cheryl Basilio MD [address] [place] [address] [facility] [address] Schedule an appointment as soon as possible [...] MD 10/16/2022, 2:01 PM documented in this [facility]22-2023 History of Present illness Narrative* Tamara Turcios MD - 10/16/2022 12:07 PM EDT Images from the original note were not included. Hospitalist Progress Note 10/16/[phone]: Please secure chat me on patient care issues. [phone]: Please secure chat [facility] Hospitalist for any issues. Subjective: Admit Date: 10/12/2022 PCP: Cheryl Basilio MD Room#: B4-757/B4-616 A CHIEF COMPLAINT: DVT left LLE Interval History: No overnight issues. Denies chest pain, sob, abdominal pain, nausea, vomiting, diarrhea, constipation, fevers, or chills. Adult diet Regular @XPKA3PZTQHL@ 24HR INTAKE/OUTPUT: No intake or output data [...] drug monitoring : # Drug name : Leopoldo # Route administered : oral # Method of monitoring : cbc Extended Emergency Contact Information Primary Emergency Contact: Maury Queen Mobile Relation: Child Waste Machine Tender needed? No Secondary Emergency Contact: Isa Jiang Mobile Relation: Other Tamara Turcios MD Division of Hospitalist Medicine [facility] PAGER: Epic chat * Percy De La Rosa, PT - 10/16/2022 9:52 AM EDT Physical Therapy Facility/Department: [facility] Physical Therapy Initial Evaluation NAME: Corrie [...] Medium Complexity History: extensive LLE DVT Exam: [facility] Clinical Presentation: Pt admitted 10/12 with [...] 12:50 PM EDT Hospitalist Progress Note 10/15/2022 [phone]: Please secure chat me for patient care issues. [phone]: Please secure chat [facility] Hospitalist for any issues. Subjective: Admit Date: 10/12/2022 PCP: Leanne Perales MD Room#: B4450/U2-746 A Interval History: Sudden onset of severe EARLY and blurry vision. No limb weakness. He denies chest pain, sob, abdominal pain, nausea, vomiting, diarrhea, fevers, or chills. Tolerating diet. Still no good bowel movement yet. D/w pt and family at bedside and RN separately. D/w Danelle, PROJECT OFFICER RN separately also. Adult diet Regular @NSKB0KUMAJH@ 24HR INTAKE/OUTPUT: Intake/Output Summary (Last 24 hours) [...] Emergency Contact: Maury Queen Mobile Relation: Child Waste Machine Tender needed? No Secondary Emergency Contact: Isa Jiang Mobile Relation: Other BHASKAR REYES MD Division of Hospitalist Medicine [facility] PAGER: Epic chat * Bhaskar Reyes MD - 10/14/2022 1:26 PM EDT Images from the original note were not included. Hospitalist Progress Note 10/14/2022 [phone]: Please secure chat me for patient care issues. : Please secure chat [facility] Hospitalist for any issues. Subjective: Admit Date: 10/12/2022 PCP: Leanne Perales MD Room#: B4-145/B4-983 A Interval History: Constipated. LLE with continued pain and swelling. Some difficulty ambulating. Hedenies chest pain, sob, abdominal pain, nausea, vomiting, diarrhea, fevers, or chills. Tolerating diet. D/w pt and RN at bedside. D/w Dr Cooper separately via secure chat. Adult diet Regular @NGRO8NXAORH@ 24HR INTAKE/OUTPUT: Intake/Output Summary (Last 24 hours) [...] Extended Emergency Contact Information Primary Emergency Contact: EvangelistMaury Mobile Relation: Child Waste Machine Tender needed? No Secondary Emergency Contact: Isa Jiang Mobile Relation: Other BHASKAR REYES MD Division of Hospitalist Medicine Acute care [facility] PAGER: Epic chat * Tegan Murry - 10/14/2022 9:14 AM EDT Nutrition rescreen completed. Patient assigned a level 1. documented in this [facility]22-2023 Note* Care Coordination - Natacha Deluna RN [...] nurse of this. [facility] with no assistive devices required. Doctors HospitalCyfhlk27-73-9341 Note* Care Coordination - Natacha Deluna RN [...] nurse of this. Was evaluated by [facility] with no assistive devices required. Doctors HospitalYczxeu38-52-6311 Note* Care Coordination - Natacha Deluna RN - 10/16/2022 6:45 AM EDT Images from the original note were not included. Care Management Progress Note [facility] yesterday afternoon. They are [...] 3-7. Tentative discharge home vs home with c when medically stable. Will monitor therapy evals for equipment and therapy needs at discharge. Discharge Milestones and Delays Expected Date/Time: 10/15/[address] discharge order Complete med reconciliation Case mgmt discharge readiness Clinical Stability Diagnsotic Workup Expected Discharge History Expected Date/Time Set By Reviewed At 10/15/2022 LEIGH Goldstein 10/15/2022 9:55 AM 10/14/2022 Natacha Frankel, DO 10/12/2022 10:32 PM 10/14/2022 Natacha Frankel, DO 10/12/2022 9:10 PM Length of Stay (Days): 4 GMLOS: 3.0 . [facility] [id number] Note* Care Coordination - Natacha Deluna RN - 10/16/2022 6:45 AM EDT Images from the original note were not included. Care Management Progress Note [facility]oke with [facility] yesterday afternoon. They are [...] 3-7. Tentative discharge home vs home with c when medically stable. Will monitor therapy evals for equipment and therapy needs at discharge. Discharge Milestones and Delays Expected Date/Time: 10/15/[address] discharge order Complete med reconciliation Case mgmt discharge readiness Clinical Stability Diagnsotic Workup Expected Discharge History Expected Date/Time Set By Reviewed At 10/15/2022 LEIGH Goldstein 10/15/2022 9:55 AM 10/14/2022 Natacha Frankel, DO 10/12/2022 10:32 PM 10/14/2022 Natacha Frankel, DO 10/12/2022 9:10 PM Length of Stay (Days): 4 GMLOS: 3.0 . [facility] [id number] History of Present illness Narrative* Anel Rubin LPN - 10/15/2022 10:31 PM EDT Chart reviewed of ED follow up Seen in [facility] ED on 10/12/22 Reason: leg pain Discharge instructions: Asked Dr. Perales about renewing your anticoagulation medicine and how long you will need to be on the medicine. PATIENT REFERRED TO: Leanne Perales MD [address] [place] [address] [place] [phone] In 1 week Pt admitted to [facility] 4S Telemetryfor complaint of leg pain. Admitting DX was acute deep vein thrombosis of left lower extremity and ambulatory dysfunction.. * Anel Rubin LPN - 10/15/2022 10:31 PM EDT Was notified per Dr. Bruce office that patient no longer follows Dr. Perales, he follows Dr. Cheryl Basilio. documented in this [facility]-21-2023 Note* Care Coordination - LEIGH Goldstein - 10/15/2022 3:19 PM EDT S/W, follow up TCC did message that Dr. Gray office will do the prior auth on Xarelto. Doctors [id number] Note* Care Coordination - LEIGH Goldstein - 10/15/2022 3:19 PM EDT S/W, follow up TCC did message that Dr. Gray office will do the prior auth on Xarelto. [facility] [id number] Note* Rapid Response Note - Danelle Louis [...] lovenox. Dr Reyes orders a head CT [facility] [id number] Note* Rapid Response Note - Danelle Louis [...] lovenox. Dr Reyes orders a head CT [facility] HospitalKjhocn21-02-5046 Note* Care Coordination - Natacha Deluna RN - 10/15/2022 12:34 PM EDT Did call and speak with Xiomara from [facility] pharmacy and requested that PA be initiated onxarelto. She will contact [facility] once obtained. Updated attending of this. Doctors [id number] Note* Care Coordination - Natacha Deluna RN - 10/15/2022 12:34 PM EDT Did call and speak with Xiomara from [facility] and requested that PA be initiated onxarelto. She will contact [facility] once obtained. Updated attending of this. [place] [id number] Note* Care Coordination - Natacha Deluna RN - 10/15/2022 9:34 AM EDT Per meds to beds xarelto will require PA [phone]. Doctors [id number] Note* Care Coordination - Natacha Deluna RN - 10/15/2022 9:34 AM EDT Per meds to beds xarelto will require PA [phone]. Doctors [id number] Note* Care Coordination - Natacha Deluna RN - 10/15/2022 6:33 AM EDT Images from the original note were not included. Care Management Progress Note Family picked up first 30 days worth of xarelto from [facility](free with coupon). Awaiting call from meds [...] Stay (Days): 3 GMLOS: No GMLOS Documented Doctors [id number] Note* Care Coordination - Natacha Deluna RN - 10/15/2022 6:33 AM EDT Images from the original note were not included. Care Management Progress Note Family picked up first 30 days worth of xarelto from [facility] in [place](free with coupon). Awaiting call from meds to [...] Stay (Days): 3 GMLOS: No GMLOS Documented [facility] [id number] Note* Care Coordination - Natacha Deluna RN - 10/14/2022 4:53 PM EDT Did epic chat Dr. Reyes regarding xarelto script sent from ER only being for 10 day supply. He sent over new script for 30 day supply to [facility] in [place]. Called and spoke with pharmacist at [facility] and 30 day script has already been picked up by patient's brother in law and 10 day script was cancelled. Patient did not accrue any charge for his 30 day script. . [facility] [id number] Note* Care Coordination - Natacha Deluna RN - 10/14/2022 4:53 PM EDT Did epic chat Dr. Reyes regarding xarelto script sent from ER only being for 10 day supply. He sent over new script for 30 day supply to [facility] in [place]. Called and spoke with pharmacist at [facility] and 30 day script has already been picked up by patient's brother in law and 10 day script was cancelled. Patient did not accrue any charge for his 30 day script. . Doctors [id number] Plan of care note* Care Plan - [...] as tolerate. Patient given warm prune juice. Doctors [id number] Consult note* Juan José Obando MD - 10/14/2022 10:55 AM EDT Images from the original note were not included. Juan José Cooper MD [facility] Hematology/Oncology - [facility] [address] [address] Dept: [phone] Dept PROBLEM LIST: 1.LLE DVT (provoked) -10/12/22 [...] etc). Pt requests to be seen at [facility] so I have our office arrange for [...] patient was diagnosed with a DVT at [place] emergency room and sent home with Xarelto. However he cannot afford the co-pay and went back to the emergency room at [place] before beingadmitted to [place]. Also of note, the patient was admitted from September 17 through September 23, 2022 with multidrug-resistant UTI/right pyelonephritis. He was prescribed a course of IV antibiotics to be completed on September 26, [address] to [place] and back , returning just about 1 [...] No fever, chills, night sweats, weight loss BLOWER INSULATOR: No blurry vision , headaches, focal neurologic [...] recognition and may contain minor errors in watch engine operator. Attending Attestation Note: I have personally performed a face to face diagnostic evaluation on this patient on 10/14/22 . I spent the 75 min visit with patient , discussing case w/ primary MD, counseling patient/documenting and coordinating care regarding diagnosis, workup/testing, treatment as well as answering questions. Juan José Cooper MD [facility] [employer] Phone: 1(795) 619-924708-20-2023 Consult note* Juan José Obando MD - 10/14/2022 10:55 AM EDT Images from the original note were not included. Juan José Cooper MD [facility] Hematology/Oncology - [facility] [address] [place] [id number] Dept: [phone] Dept PROBLEM LIST: 1.LLE DVT (provoked) -10/12/22 [...] etc). Pt requests to be seen at [facility] so I have our office arrange for [...] patient was diagnosed with a DVT at [place] emergency room and sent home with Skyrelto. However he cannot afford the co-pay and went back to the emergency room at [place] before beingadmitted to [place]. Also of note, the patient was admitted from September 17 through September 23, 2022 with multidrug-resistant UTI/right pyelonephritis. He was prescribed a course of IV antibiotics to be completed on September 26, [address] to [place] and back , returning just about 1 [...] No fever, chills, night sweats, weight loss BLOWER INSULATOR: No blurry vision , headaches, focal neurologic [...] recognition and may contain minor errors in watch engine operator. Attending Attestation Note: I have personally performed a face to face diagnostic evaluation on this patient on 10/14/22 . I spent the 75 min visit with patient , discussing case w/ primary MD, counseling patient/documenting and coordinating care regarding diagnosis, workup/testing, treatment as well as answering questions. Juan José Cooper MD documented in this [facility]-19-2023 Plan of care note* Care Plan - [...] After rest , color and pain improves. Doctors [id number] Note* Care Coordination - Natacha Deluna RN - 10/13/2022 3:56 PM EDT Called [facility] in [place]. Xarelto script does require PA. Had pharmacist run without insurance and only use FREE 30 day copay card and was able to go through with no cost. Returned to patient's room. Met with he and his daughter Isa. Apologized for earlier misunderstanding. Explained thathad spoken to [facility] in [place] and his xarelto had gone through with [...] Patient and daughter requesting to speak with auto rental supervisor about separate incident. Hairspring Inspector updated. Discharge plan is home when medically stable. Doctors [id number] Note* Care Coordination - Natacha Deluna RN - 10/13/2022 3:56 PM EDT Called [facility] in [place]. Xarelto script does require PA. Had pharmacist run without insurance and only use FREE 30 day copay card and was able to go through with no cost. Returned to patient's room. Met with he and his daughter Isa. Apologized for earlier misunderstanding. Explained thathad spoken to [facility] in [place] and his xarelto had gone through with [...] Patient and daughter requesting to speak with auto rental supervisor about separate incident. Hairspring Inspector updated. Discharge plan is home when medically stable. Doctors [id number] Note* Care Coordination - Natacha Deluna RN - 10/13/2022 3:50 PM EDT Care Managment Initial Assessment Date: 10/13/2022 Patient Name: Corrie Queen : 1960 Patient Information Source of Information: Patient Name/Contact Information: ISA HENSLEY [phone] DAUGHTER MAURY QUEEN DAUGHTER [phone] Cognition/Language: WFL - Within Functional Limits Permission given to speak with patient ambulatory service representative/caregiver as indicated: Yes Confirmation of Payer with patient/family: Yes Payer Name: MMO Bayside: No Confirmation of Primary Care Physician: Confirmed [...] Coverage: Yes Pharmacy Used: [facility] [place] Medication Management: Independent Transportation/Shopping: Independent Transportation Mode: [...] consulted. Daily labs. Spoke with attending via [employer] chat and wanted to know costs of [...] stated we were no different here from [facility] and he wanted to speak with the doctor. He threw off his blankets and stated he was out of here. Did update primary care nurse and attending... Natacha Deluna RN [facility] HospitalPgihhq78-83-3618 Note* Care Coordination - Natacha Deluna RN - 10/13/2022 3:50 PM EDT Care Managment Initial Assessment Date: 10/13/2022 Patient Name: Corrie Queen : 1960 Patient Information Source of Information: Patient Name/Contact Information: ISA HENSLEY [phone] DAUGHTER MAURY QUEEN DAUGHTER [phone] Cognition/Language: WFL - Within Functional Limits Permission given to speak with patient ambulatory service representative/caregiver as indicated: Yes Confirmation of Payer with patient/family: Yes Payer Name: MMO Bayside: No Confirmation of Primary Care Physician: Confirmed [...] Coverage: Yes Pharmacy Used: [facility] [place] Medication Management: Independent Transportation/Shopping: Independent Transportation Mode: [...] consulted. Daily labs. Spoke with attending via [employer] chat and wanted to know costs of [...] stated we were no different here from [facility] and he wanted to speak with the doctor. He threw off his blankets and stated he was out of here. Did update primary care nurse and attending... Natacha Deluna RN Doctors [id number] Note* Significant Event - Bhaskar Reyes MD - 10/13/2022 3:26 PM EDT Seen and examined. Chart/labs/tests reviewed. D/w pt and family at bedside and RN and CM separately. Please see H&P done by Dr Allison earlier today for complete details. Doctors [id number] Note* Significant Event - Bhaskar Reyes MD - 10/13/2022 3:26 PM EDT Seen and examined. Chart/labs/tests reviewed. D/w pt and family at bedside and RN and CM separately. Please see H&P done by Dr Allison earlier today for complete details. Doctors [id number] History and physical note* Yared Allison MD - 10/13/2022 3:55 AM EDT Images from the original note were not included. History and Physical [facility] : 1960 AGE 62 y.o. YEARS Note [...] and had pain He then went to [facility] He was diagnosed with a dvt and then he was started on lovenox and then sent home on xarelto However when he went to get the prescription filled, he reports is was $300 and he could not affordto get it filled Since he could not get it filled, he had not way to treat himself and he [place] He recently travelled to [place] and was driving for about 14 hours [...] He has had a truck trip to [place] which is [address] recently is his only precipitating factor he denies any other clotting disorders in the past He was seen at [facility] was done he was discharged on Xarelto unfortunately I think it might require preauthorization where the cwe-ch-oikaye expense for prescription was $300 she could [...] to due risk bleed/procedure 10/13/2022 Corrie Queen [id number] Any scheduled follow up appointments Future Appointments Date Time Provider Department Center 12/11/2022 9:20 AM Garrison Garza MD [facility] URO BAR None 01/02/2023 10:40 AM Rocio Ruiz MD [facility] SB END None 01/30/2023 10:00 AM Donna Roberts DO [facility] MMC PUL None 02/14/2023 7:30 AM [facility] 04/12/2023 8:00 AM Ziggy Frazier MD [facility] Extended Emergency Contact Information Primary Emergency Contact: Maury Queen Mobile Relation: Child Waste Machine Tender needed? No Secondary Emergency Contact: Isa Jiang Mobile Relation: Other Portions of this note may be electronically transcribed. Please forward a copy of this H&P to the primary care physician. [employer] Work Phone: 1(369) 272-106208-19-2023 History and physical note* Yared Allison MD - 10/13/2022 3:55 AM EDT Images from the original note were not included. History and Physical [facility] Corrie Queen : 1960 AGE 62 y.o. [...] and had pain He then went to [facility] He was diagnosed with a dvt and then he was started on lovenox and then sent home on xarelto However when he went to get the prescription filled, he reports is was $300 and he could not affordto get it filled Since he could not get it filled, he had not way to treat himself and he went back to the [facility] He recently travelled to [place] and was driving for about 14 hours [...] RESP: Abdominal Pain n Glasses/Contacts n : SOB/PURITT n Nausea n Loss taste/smell n Hematuria [...] He has had a truck trip to [place] which is [address] recently is his only precipitating factor he denies any other clotting disorders in the past He was seen at [place] ultrasound was done he was discharged on Xarelto unfortunately I think it might require preauthorization where the doy-er-skrlek expense for prescription was $300 she could [...] to due risk bleed/procedure 10/13/2022 Corrie Queen [id number] Any scheduled follow up appointments Future Appointments Date Time Provider Department Center 12/11/2022 9:20 AM Garrison Garza MD [facility] URO BAR None 01/02/2023 10:40 AM Rocio Ruiz MD [facility] END None 01/30/2023 10:00 AM Donna Roberts DO [facility] MMC PUL None 02/14/2023 7:30 AM Leanne Perales MD [facility] 04/12/2023 8:00 AM Ziggy Frazier MD [facility] Extended Emergency Contact Information Primary Emergency Contact: Maury Queen Mobile Relation: Child Waste Machine Tender needed? No Secondary Emergency Contact: Lucius Jianghanie Mobile Relation: Other Portions of this note may be electronically transcribed. Please forward a copy of this H&P to the primary care physician. documented in this [facility]-18-2023 Emergency department Note* Ziggy Barron RN - 10/12/2022 9:40 PM EDT Pt and his daughter agreeable to transport via automobile to [facility]. Report called to [place] [address] [address] nurse. Ziggy Barron RN 10/12/222146 Doctors [id number] Emergency department Note* Ziggy Barron RN - 10/12/2022 9:40 PM EDT Pt and his daughter agreeable to transport via automobile to [facility]. Report called to [place] [address] [address] nurse. Ziggy Barron RN 10/12/222146 * Natacha [...] is ambulatory. Pt a/ox3 documented in this [facility]18-20[facility] Emergency department Triage note* Ziggy Barron RN - 10/12/2022 7:42 PM EDT Pt to room 4 via wheelchair with c/o left leg pain and swelling which onset was 5pm. Pt was seen earlier today and discharged but was later decided he was uncomfortable being on his own because he iscurrently wheelchair bound when he normally is ambulatory. Pt a/ox3 [facility] [id number] Physician Emergency department Note* Natacha Frankel DO [...] Emergency Medicine Provider Natacha Frankel DO 10/12/222121 [facility] HospitalYqtipn36-85-2291 Hospital Discharge instructions* Discharge Instructions* Pacheco Negron MD - 10/12/2022 3:[address] Perales about renewing your anticoagulation medicine and how long you will need to be on the medicine. * Attachments The following attachments cannot be sent through Care Everywhere. * Deep Vein Thrombosis (Blood Clot in the Legs) (Niuean) * Going Home on Blood Thinners (Niuean) documented in this [facility]-18-2023 Emergency department Note* Lauren Del Angel RN - 10/12/2022 1:23 PM EDT Physician at bedside Lauren Del Angel RN 10/12/22 1538 [id number] Emergency department Note* Lauren Del Angel RN - 10/12/2022 1:23 PM EDT Pt medicated for pain prior to discharge d/t increased pain. Lauren Del Angel RN 10/12/22 1622 [id number] Emergency department Note* Pacheco Negron MD - [...] retention and infection. Recently drove home from [place]. States he is adopted but his biologic [...] PM PATIENT REFERRED TO: Leanne Perales MD [address] [place] [address] [address] [facility] [address] In 1 week DISCHARGE MEDICATIONS: New Prescriptions [...] Emergency Medicine Provider Pacheco Negron MD 10/12/22 3174 Addendum 5:54 PM received call from patient stating that right alen Koenig would not fill his prescription. I contacted Danyelle in the pharmacy who stated that she needed pre-authorization from insurance. Estherwas made aware that the patient has a DVT and is at increased for pulmonary embolism, that he needed his medication and that no insurance company would give pre-authorization over the weekend. She suggested changing the prescription to Eliquis which I did. Eliquis 10 mg twice daily for 10 days. Patient aware. Pacheco Negron MD 10/12/22 1755 Pacheco Negron MD 10/12/22 1752 * Lauren Del Angel RN - 10/12/2022 [...] states he was recently discharged from hospital [facility] and then informs that he did recently drive home from [place] and returned last week. * Lauren Del Angel RN - 10/12/2022 1:23 PM EDT Physician at bedside Lauren Del Angel RN 10/12/22 1538 * Lauren Del Angel RN - 10/12/2022 1:23 PM EDT Pt medicated for pain prior to discharge d/t increased pain. Lauren Del Angel RN 10/12/22 1622 documented in this [facility]18-2023 Emergency department Triage note* Lauren Del Angel [...] states he was recently discharged from hospital [facility] and then informs that he did recently drive home from [place] and returned last week. Doctors [id number] Physician Emergency department Note* Pacheco Negron MD [...] retention and infection. Recently drove home from [place]. States he is adopted but his biologic [...] PM PATIENT REFERRED TO: Leanne Perales MD [address] [place] [address], [address] [place] [phone] In 1 week DISCHARGE MEDICATIONS: New Prescriptions [...] stated that she needed pre-authorization from insurance. Estherwas made aware that the patient has a DVT and is at increased for pulmonary embolism, that he needed his medication and that no insurance company would give pre-authorization over the weekend. She suggested changing the prescription to Eliquis which I did. Eliquis 10 mg twice daily for 10 days. Patient aware. Pacheco Negron MD 10/12/221754 Pacheco Negron MD 10/12/221757 Doctors HospitalQdnpgc57-80-2680 History of Present illness Narrative* Cheryl Basilio MD - 10/11/2022 8:20 AM EDT Images from the original note were not included. [facility] INTERNAL MEDICINE [address] [facility] [address] [facility] [id number] Dept: [phone] Dept Loc: [phone] Visit type: New patient Reason for Visit: New Patient ([facility]) Assessment and Plan 1. Recurrent UTI - [...] alert. Cheryl Basilio MD documented in this [facility]-16-2023 History of Present illness Narrative* Donna Roberts, - 10/10/2022 1:00 PM EDT [facility] Medicine PATIENT VISIT-PULMONARY [...] pleural effusion. 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 Most recently he traveled to [place], and 10/02 2022, had sharp pain in [...] history. We evaluated his bilateral chest with uqvyr-ml-curs ultrasound and no significant or complicated pleural effusions were detected. Patient denies any significant respiratory limitations at this time, and able to form all activities of daily living without limitation. He is planning upcoming trip again to [place] for [employer] concerts, and feels at baseline at this time. [...] incidentally trace noted on outside CT in [place]. No evidence of recurrence on physical exam and kquin-uz-djof ultrasound. History of recent hospitalization, ESBL recurrent [...] Review Audit Reviewed by Danae Dudley MA (Docket Clerk) on 10/10/22 at 1242 Medication Order Taking? Sig Documenting Provider Last Dose Status cabergoline (Dostinex) 0.5 MG tablet [id number] Yes take 1 1/2 tablet by mouth ON SATURDAY AND SATURDAY Leanne Perales MD Taking Active fenofibrate (Triglide) 160 MG tablet [id number] Yes take 1 tablet by mouth once daily Tayler Rivas APRN - BHAVNA Taking Active levothyroxine (Synthroid, Levoxyl) 100 MCG tablet [id number] Yes Take 1 tablet (100 mcg) by mouth daily. Rocio Ruiz MD Taking Active niacin (Niaspan) 1000 MG ER tablet [id number] Yes Take 1 tablet (1,000 mg) by mouth daily. Leanne Perales MD Taking Active rosuvastatin (Crestor) 10 MG tablet [id number] Yes Take 1 tablet (10 mg) by mouth daily. Leanne Perales MD Taking Active tadalafil (Cialis) 20 MG tablet [id number] Yes Take 1 tablet (20 mg) by mouth Daily as needed for erectile dysfunction. Tayler Rivas APRN - BHAVNA Taking Active tamsulosin (Flomax) 0.4 MG 24 hr capsule [id number] Yes Take 1 capsule (0.4 mg) by [...] Results: No results found for: FEV1, FVC, DKL8RPS, TLC, DLCO Orders Placed This Encounter Procedures [...] pre and post bronchodilator documented in this [facility]-16-20[facility] Instructions* Patient Instructions* Danae Dudley MA - 10/10/2022 1:00 PM EDT YOUR APPOINTMENT TODAY WAS WITH THE [facility], COPD CLINIC, PULMONARY AND SLEEP MEDICINE OFFICE. PLEASE CALL OUR OFFICE AT [phone] IF YOU HAVE NOT RECEIVED YOUR TEST [...] to make improvements. COVID-19 VACCINATION INFORMATION: PH. [phone] [email or web address] [facility] Central Scheduling [phone] [facility] Sleep Scheduling [phone] documented in this [facility]07-23-2023 Telephone encounter Note* Telephone Encounter - FELISHA Naylor CNP - 09/16/2022 12:34 PM EDT Reviewed urine culture results with patient. Urine culture resistant to multiple organisms. Stop cephalexin started recently and start nitrofurantoin 100 mg twice daily x 7 days. [facility] [id number] Miscellaneous Notes* Telephone Encounter - FELISHA Naylor CNP - 09/16/2022 12:34 PM EDT Reviewed urine culture results with patient. Urine culture resistant to multiple organisms. Stop cephalexin started recently and start nitrofurantoin 100 mg twice daily x 7 days. documented in this [facility]07-20-2023 Evaluation + Plan note* Assessment & Plan Note - FELISHA Naylor CNP - 09/13/2022 12:57 PM EDTAssociated Problem(s): Urinary tract infection symptoms UA trace blood, + leukocytes. Send for culture. We will wait for urine culture results. No fever orchills. CT of abd/pelvis next week. Has bee referred to urology. Go to ER for development of fever, chills, n/v. Increased flank pain [facility] [id number] Miscellaneous Notes* Assessment & Plan Note - FELISHA Naylor CNP - 09/13/2022 12:57 PM EDTAssociated Problem(s): Urinary tract infection symptoms UA trace blood, + leukocytes. Send for culture. We will wait for urine culture results. No fever orchills. CT of abd/pelvis next week. Has bee referred to urology. Go to ER for development of fever, chills, n/v. Increased flank pain documented in this [facility]07-20-2023 History of Present illness Narrative* Paloma Holland [...] tablet by mouth once daily 07/04/22 Yes Tayler Rivas APRN - BHAVNA levothyroxine (Synthroid, Levoxyl) 100 MCG tablet Take 1 tablet (100 mcg) by mouth daily. 03/13/22 Yes Rocio Ruiz MD niacin (Niaspan) 1000 MG ER tablet Take 1 tablet (1,000 mg) by mouth daily. 05/07/22 Yes Leanne Perales MD rosuvastatin (Crestor) 10 MG tablet [...] CNP 09/13/2022 11:54 AM documented in this [facility]07-20-2023 Instructions* Patient Instructions* FELISHA Naylor CNP - 09/13/2022 11:40 AM EDT I will call you on Saturday to update on urine culture. documented in this [facility]06-28-2023 Telephone encounter Note* Telephone Encounter - Nelli Lama MA - 08/22/2022 1:29 PM EDT Prescription Request: Last medication check: 08/03/21 Last physical exam: 02/06/22 Next scheduled appointment: 02/14/23 Last date of refill on this medication 04/04/22 36 tablets 1 refill [facility] [id number] Miscellaneous Notes* Telephone Encounter - Nelli Lama MA - 08/22/2022 1:29 PM EDT Prescription Request: Last medication check: 08/03/21 Last physical exam: 02/06/22 Next scheduled appointment: 02/14/23 Last date of refill on this medication 04/04/22 36 tablets 1 refill documented in this encounterSSelect Medical [facility] [id number] History of Present illness Narrative* Tayler Rivas APRN - AUDIO VISUAL DIRECTOR - 08/17/2022 8:20 AM EDT Images from [...] CNP 08/17/2022 8:44 AM documented in this [facility]23[facility]2023 History of Present illness Narrative* FELISHA Jeronimo [...] CNP 08/17/2022 8:44 AM documented in this [facility]-23-2023 Miscellaneous Notes* Addendum Note - FELISHA Jeronimo CNP - 08/17/2022 8:20 AM EDTAddended by: TAYLER RIVAS on: 08/20/2022 09:36 AM Modules accepted: Orders documented in this [facility]06-23-2023 Note* Addendum Note - FELISHA Jeronimo CNP - 08/17/2022 8:20 AM EDTAddended by: TAYLER RIVAS on: 08/20/2022 09:36 AM Modules accepted: Orders [facility] [id number] Telephone encounter Note* Telephone Encounter - FELISHA Jeronimo CNP - 07/04/2022 3:57 PM EDT Rx sent. Follow up as scheduled. [facility] [id number] Miscellaneous Notes* Telephone Encounter - FELISHA Jeronimo [...] on this medication 10/16/21 documented in this [facility]-10-2023 Telephone encounter Note* Telephone Encounter - Mary Garcia MA - 07/04/2022 3:20 PM EDT Prescription Request: Last medication check: 08/03/21 Last physical exam: 02/06/22 Next scheduled appointment: 08/06/22 CSA on file (date): na Last urine drug screen: na Last date of refill on this medication 10/16/21 [facility] HospitalUysokx09-54-0939 Evaluation + Plan note* Assessment & Plan Note - Leanne Perales MD - 06/19/2022 4:16 PM EDTAssociated Problem(s): Combined arterial insufficiency and corporo-venous occlusive erectile dysfunction Prescription for Cialis 20 mg printed so he can shop around for the best ruiz. [place] [id number] Miscellaneous Notes* Assessment & Plan Note - Leanne Perales MD - 06/19/2022 4:16 PM EDTAssociated Problem(s): Combined arterial insufficiency and corporo-venous occlusive erectile dysfunction Prescription for Cialis 20 mg printed so he can shop around for the best ruiz. documented in this [place] [address]-25-2023 Miscellaneous Notes* Assessment & Plan Note - [...] accepted: Level of Service documented in this [place] [address]-25-2023 History of Present illness Narrative* Nelly Correia MA - 06/19/2022 1:45 PM EDT Patient verified by last name and date of . Patient wants a control and recovery special tactics in the room during during the visit. no Dining Room Captain na * Leanne Perales MD - 06/19/2022 [...] MD 06/19/2022 4:17 PM documented in this [facility]25-2023 History of Present illness Narrative* Nelly Correia MA - 06/19/2022 1:45 PM EDT Patient verified by last name and date of . Patient wants a control and recovery special tactics in the room during during the visit. no Dining Room Captain na * Leanne Perales MD - 06/19/2022 [...] worsen or fail to improve. SUBJECTIVE/OBJECTIVE: LUIS -Jef comes in today interested in medication for [...] MD 06/21/2022 3:52 PM documented in this [facility]-25-2023 Note* Addendum Note - Leanne Perales MD - 06/19/2022 1:45 PM EDTAddended by: LEANNE PERALES on: 06/21/2022 03:52 PM Modules accepted: Level of Service [facility] [id number] Evaluation + Plan note* Assessment & Plan Note - Leanne Perales MD - 05/17/2022 12:42 PM EDTAssociated Problem(s): Right flank pain Recurrent flank pain. Urinalysis shows trace of blood and leukocytes, will send for culture and start him on Bactrim. [facility] HospitalTgyofn66-94-5398 Miscellaneous Notes* Assessment & Plan Note - Leanne Perales MD - 05/17/2022 12:42 PM EDTAssociated Problem(s): Right flank pain Recurrent flank pain. Urinalysis shows trace of blood and leukocytes, will send for culture and start him on Bactrim. documented in this [facility]-23-2023 History of Present illness Narrative* Paloma Holland - 05/17/2022 11:45 AM EDT Dining Room Captain for Intimate and Non Intimate Exam Dining Room Captain was declined Dining Room Captain: na * Leanne Perales MD - 05/17/2022 [...] worsen or fail to improve. SUBJECTIVE/OBJECTIVE: LUIS Salgado comes in today for follow-up on a [...] MD 05/17/2022 12:43 PM documented in this [facility]-02-2023 Telephone encounter Note* Telephone Encounter - Chana Mckoy - 03/29/2022 4:39 PM EST Order closed [facility] [id number] Miscellaneous Notes* Telephone Encounter - Chana Mckoy [...] Relationship to Patient: pt Provider: Practice: [facility] Chief Complaint/Reason for Call: Caller is stating that [facility] Auth for CT has been denied please ref [id number] as they will also be sending a fax Best time of day caller can be reached: any Patient advised that office/PCP has 24-48 business hours to return their call: No documented in this encounterSSelect Medical [facility] HospitalLdavrn00-45-9612 Telephone encounter Note* Telephone Encounter - Leanne Perales MD - 03/27/2022 3:21 PM EST Okay, thank you okay to cancel the CT scan [facility] HospitalDriiws02-94-3361 Miscellaneous Notes* Telephone Encounter - Leanne Perales [...] Relationship to Patient: pt Provider: Practice: [facility] Chief Complaint/Reason for Call: Caller is stating that [facility] Auth for CT has been denied please ref [id number] as they will also be sending a fax Best time of day caller can be reached: any Patient advised that office/PCP has 24-48 business hours to return their call: No documented in this [facility]01-31-2023 Telephone encounter Note* Telephone Encounter - Nelli Lama - 03/27/2022 3:01 PM EST Patient notified, said he is not having any pain right now and doesn't think physical therapy is necessary. [facility] HospitalAhldxl36-05-0107 Note* Addendum Note - Leanne Perales MD - 03/27/2022 1:05 PM ESTAddended by: LEANNE PERALES on: 03/27/2022 01:05 PM Modules accepted: Orders [facility] HospitalQligvt27-74-7564 Note* Addendum Note - Leanne Perales MD - 03/27/2022 1:05 PM ESTAddended by: LEANNE PERALES on: 03/27/2022 01:05 PM Modules accepted: Orders [facility] HospitalJmhpeg97-88-0292 Note* Addendum Note - Leanne Perales MD - 03/27/2022 1:05 PM ESTAddended by: LEANNE PERALES on: 03/27/2022 01:05 PM Modules accepted: Orders [address]31-2023 Note* Addendum Note - Leanne Perales MD - 03/27/2022 1:05 PM ESTAddended by: LEANNE PERALES on: 03/27/2022 01:05 PM Modules accepted: Orders [address]myeyj07-67-5280 Note* Addendum Note - Leanne Perales MD - 03/27/2022 1:05 PM ESTAddended by: LEANNE PERALES on: 03/27/2022 01:05 PM Modules accepted: Orders [facility]01-31-2023 Telephone encounter Note* Telephone Encounter - Leanne Perales MD - 03/27/2022 1:03 PM EST We will need to contact patient to get him into physical therapy, referral done [facility]01-31-2023 Telephone encounter Note* Telephone Encounter - Chana Mckoy - 03/27/2022 10:15 AM EST How do you want to proceed with this denial? Okay to close orders? [facility] HospitalXueicd96-25-0002 Telephone encounter Note* Telephone Encounter - Chana [...] contact with your provider after completing treatment. [facility] HospitalKispzq49-29-8957 Miscellaneous Notes* Telephone Encounter - Chana Mckoy [...] for CT has been denied please ref [id number] as they will also be sending a fax Best time of day caller can be reached: any Patient advised that office/PCP has 24-48 business hours to return their call: No documented in this [facility]01-26-2023 Telephone encounter Note* Telephone Encounter - Chana Conroy - 03/22/2022 12:50 PM EST Name of caller: Lillian Akbar ) Contact phone number: Apt 4 Relationship to Patient: pt Provider: Practice: [facility] Chief Complaint/Reason for Call: Caller is stating that Priour Auth for CT has been denied please ref [id number] as they will also be sending a fax Best time of day caller can be reached: any Patient advised that office/PCP has 24-48 business hours to return their call: No [facility] HospitalDwkznf85-59-1878 Miscellaneous Notes* Telephone Encounter - Chana Conroy - 03/22/2022 12:50 PM EST Name of caller: Sima( Naomie ) Contact phone number: Apt 4 Relationship to Patient: pt Provider: Practice: [facility] Chief Complaint/Reason for Call: Caller is stating that Pri[facility] Auth for CT has been denied please ref [id number] as they will also be sending a fax Best time of day caller can be reached: any Patient advised that office/PCP has 24-48 business hours to return their call: No documented in this [facility]01-17-2023 Telephone encounter Note* Telephone Encounter - Deepa [...] prior to picking up the medication: Yes [facility] [id number] Miscellaneous Notes* Telephone Encounter - Deepa Burrell [...] up the medication: Yes documented in this encounterSSelect Medical [facility] HospitalMeodwx65-16-6184 Evaluation + Plan note* Assessment & Plan [...] about working or driving with this medicine. [facility] HospitalHqfinn67-50-7781 Miscellaneous Notes* Assessment & Plan Note - [...] driving with this medicine. documented in this [facility]01-10-2023 Evaluation + Plan note* Assessment & Plan [...] about working or driving with this medicine. [facility] HospitalAgooms32-29-3930 History of Present illness Narrative* Leanne Perales [...] After CT scan and medication. SUBJECTIVE/OBJECTIVE: HPI -Corrie comes in today for follow-up on his [...] MD 03/06/2022 3:47 PM documented in this [facility]01-03-2023 Evaluation + Plan note* Assessment & Plan Note - FELISHA Naylor CNP - 02/27/2022 5:29 PM ESTAssociated Problem(s): Essential hypertension, benign Initial reading elevated. Repeat good. Not on medications. [facility] HospitalXwqbki42-04-1234 Miscellaneous Notes* Assessment & Plan Note - [...] (has rx from prior). documented in this [facility]01-03-2023 Miscellaneous Notes* Assessment & Plan Note - [...] accepted: Level of Service documented in this [facility]01-03-2023 Evaluation + Plan note* Assessment & Plan Note - FELISHA Naylor CNP - 02/27/2022 5:28 PM ESTAssociated Problem(s): Acute cystitis without hematuria Urine culture + ecoli. Sensitivity to augmentin. Will extend treatment for additional 4 days. Continue to monitor. Increase fluid intake. [facility] HospitalQsakes91-19-7994 Evaluation + Plan note* Assessment & Plan Note - FELISHA Naylor CNP - 02/27/2022 5:27 PM ESTAssociated Problem(s): Flank pain Likely more musculoskeletal. No fever, non ill appearing. Ok for muscle relaxant (has rx from prior). [facility] HospitalKytplq21-83-0422 History of Present illness Narrative* Paloma Holland - 02/27/2022 1:20 PM EST Dining Room Captain for Intimate and Non Intimate Exam Dining Room Captain was declined Dining Room Captain: na * FELISHA Naylor CNP - 02/27/2022 [...] CNP 02/27/2022 4:42 PM documented in this [facility]-03-2023 History of Present illness Narrative* Paloma Holland - 02/27/2022 1:20 PM EST Dining Room Captain for Intimate and Non Intimate Exam Dining Room Captain was declined Dining Room Captain: na * FELISHA Naylor CNP - 02/27/2022 [...] CNP 02/27/2022 4:42 PM documented in this [facility]-03-2023 Note* Addendum Note - FELISHA Naylor CNP - 02/27/2022 1:20 PM ESTAddended by: CHANA BROWN on: 02/28/2022 04:39 PM Modules accepted: Level of Service [facility] HospitalTlrjng80-84-2959 NoteHospitalist Discharge Summary Corrie Queen : 1960 [...] These medications were sent to [id number] - [address] [phone] - [phone] [place] [id number] nicotine 21 MG/24HR Recommended Follow-up: PCP, cardiology, urology outpatient in 1-2 weeks Readmission Risk Risk of Unplanned Readmission: 11 Complexity of Follow up: [] Moderate Complexity: follow up within 7-14 calendar days (26537) [x] Severe Complexity: follow up within 7 calendar days (22786) Follow up Testing, Pending results or Referrals [...] frame. Signed: Best Fishman DO Division of Hospitalist Medicine [facility]patient Medical Services[place] 12/06/2021, 8:50 [facility]10-11-2022 History of Present illness Narrative* Nallely Villegas RN - 12/05/2021 8:11 PM EDT Patient has been adamant about taking his medications from home. Medications were sent down to Pharmacy to verify. Unable to scan meds because they are formulary. Notified Shikha, Personal Injury Legal Assistant on 12/04/2021 of situation. Notified Kiara Kapoor SERVICE ATTENDANT on 12/04/2021. Patient had been threatening to leave AMA on 12/03/2021 & 12/04/2021. Patient also adamantly refusing to receive ordered IVF. Dr. Barlow notified on 12/03/2021. Kiara Kapoor SERVICE ATTENDANT notified on 12/04/2021 Revisited situation with Shikha Personal Injury Legal Assistant on 12/05/2021. * Lorena Jama MD - 12/05/2021 8:37 AM EDT Images from the original note were not included. [facility] - Infectious Diseases Attending Progress Note Subjective: [...] Behavior: Behavior normal. Labs: Recent Labs 12/03/2131012/04/2151012/05/21 023 NA 137 138 135 K 4.2 4.9 [...] Radiography/Echo/Other: ACCESSION EXAM DATE/TIME PROCEDURE ORDERING PROVIDER [id number] 12/04/2021 10:28 EDT US Retroperitoneal KIARA BOB CPT code 35279 Reason For Exam (US Retroperitoneal Limited) R [...] of care expectations & antimicrobials. * Kiara Kapoor, CHAIRMAN & CEO - AUDIO VISUAL DIRECTOR - 12/05/2021 8:13 AM EDT Images from the original note were not included. Hospitalist Progress Note 12/05/[id number]: Please reach me on Perfect Serve patient care issues. [phone]: Please page I[facility] night Hospitalist for any [...] output data in the 24 hours ending 12/05/21 0813 Past Medical History: Diagnosis Date Benign neoplasm of pituitary gland and craniopharyngeal duct (pouch) (HCC) Chest pain, unspecified Diverticulitis Esophageal reflux Essential hypertension, benign Kidney stone Other abnormal blood chemistry Other and unspecified hyperlipidemia Other anterior pituitary disorders Other testicular hypofunction Pituitary tumor Tobacco use disorder Unspecified hearing loss Unspecified hypothyroidism LABS: CBC: Recent Labs 12/03/2131012/04/2111 12/05/21 0230 WBC 7.8 10.1 10.4 RBC [...] to improve FELISHA Pool CNP [facility] * Sharon Escobedo RN - 12/05/2021 6:01 AM EDT Pt still does not want IV fluids running. Has been drinking water throughout the night. * Lorena Jama MD - 12/04/2021 10:30 AM EDT Images from the original note were not included. [facility] - Infectious Diseases Attending Progress [...] -- ALT 16 -- -- Recent Labs 12/02/2125312/03/2131012/04/21 0511 WBC 8.6 7.8 10.1 HGB 14.3 [...] Radiography/Echo/Other: ACCESSION EXAM DATE/TIME PROCEDURE ORDERING PROVIDER [id number] 12/04/2021 10:28 EDT US Retroperitoneal KIARA BOB CPT code 48920 Reason For Exam (US Retroperitoneal Limited) R [...] of care expectations & antimicrobials. * Kiara Kapoor, CHAIRMAN & CEO - AUDIO VISUAL DIRECTOR - 12/04/2021 9:24 AM EDT Images from the original note were not included. Hospitalist Progress Note 12/04/2021 [phone]: Please reach me on Perfect Serve patient care issues. [phone]: Please page IMS night Hospitalist for any [...] output data in the 24 hours ending 12/04/21 0924 Past Medical History: Diagnosis Date Benign neoplasm of pituitary gland and craniopharyngeal duct (pouch) (HCC) Chest pain, unspecified Diverticulitis Esophageal reflux Essential hypertension, benign Kidney stone Other abnormal blood chemistry Other and unspecified hyperlipidemia Other anterior pituitary disorders Other testicular hypofunction Pituitary tumor Tobacco use disorder Unspecified hearing loss Unspecified hypothyroidism LABS: CBC: Recent Labs 12/02/21 0254 12/03/21 0311 12/04/21 [...] CNP Division of Hospitalist Medicine Inpatient Medical Services/[facility] * Sharon Escobedo RN - 12/04/2021 7:21 [...] then stated, I would rather be in alf then be here. Patient then began to speak of his who one year ago, and was a patient on this floor. Patient requesting to see Attending and Infectious Disease. Perfectserved Dr. Barlow and Dr. Jama to notify of request. * Shane Barlow MD - 12/03/2021 7:04 AM EDT Images from the original note were not included. Hospitalist Progress Note 12/03/2021 [phone]: Please page me ([phone]) for patient care issues. [phone]: Please page [facility] night Hospitalist for any issues. Subjective: Admit [...] 203 228 BMP: Recent Labs 12/01/21 1028 12/02/214 12/03/21310 NA 133* 134* 137 K 4.0 3.7 4.2 CL 103 107 110* CO2 21* 18* 21* BUN 18* 29* 24* CREATININE 1.34* 1.49* 1.22 GLUCOSE 122* 99 96 CALCIUM 10.7* 9.7 9.7 ANIONGAP 9 9 7 LIVER PROFILE: Recent Labs 12/01/21 1028 12/02/21253 AST 27 24 ALT 20 16 BILITOT [...] - BMI 30.30 Plan -Patient presents to [facility] with complaints of ongoing right flank pain. [...] that it is worse than being in alf. Hada long conversation with him regarding the risks and benefits of leaving AMA. Explained to him why he needs to [...] MD Division of Hospitalist Medicine Inpatient Medical Services/[facility] PAGER: PERFECT SERVE * Sharon Escobedo RN [...] I'm having my daughter bring me in [employer]. RD provided emotionalsupport regarding pt's frustration. Nutrition [...] Anthropometric Measures: Height: 6' 2 (188 cm) Aurora Body Weight (IBW): 190 lbs (86 kg) Current Body Weight: 236 lb (107 kg), IBW. Current BMI (kg/m2): 30.3 Usual Body Weight: 245 lb (111.1 kg) % Weight Change (Calculated): -3.7 Weight Adjustment For: No Adjustment BMI Categories: Obese Class 1 (BMI 30.0-34.9) Estimated Daily Nutrient Needs: Energy Requirements Based On: Kcal/kg Weight Used for Energy Requirements: Aurora Energy (kcal/day): 0484-2090 (25-30 kcals/kg) Weight Used for Protein Requirements: Aurora Protein (g/day): 86-103 (1.0-1.2g/kg) Method Used for [...] Care discussed with: Pt Tamara Davis RD, DAILY Contact: River Bah * Shane Barlow MD - 12/02/2021 8:24 AM EDT Images from the original note were not included. Hospitalist Progress Note 12/02/2021 [phone]: Please page me ([phone]) for patient care issues. [phone]: Please page [facility] night Hospitalist for any issues. Subjective: Admit Date: 12/01/2021 PCP: Leanne Perales MD Room#: 158/1589 Interval History: No overnight issues. Patient was [...] - BMI 30.30 Plan -Patient presents to [facility] with complaints of ongoing right flank pain. [...] Anticoagulation Advance Directive: Full Code Discharge planning: TBJanelle Barlow MD Division of Hospitalist Medicine Inpatient Medical Services/[facility] PAGER: PERFECT SERVE documented in this encounterSUMMA Work Phone: [phone]) 286-883410-11-2022 Hospital Discharge instructions* Discharge Instr - Other [...] 150/90, please reach out to Dr. Chetan SCHNEIDERP. documented in this encounterSUMMA Work Phone: 1(575) 576-639110-03-2022 Hospital Discharge instructions* Discharge Instructions* Tc Spence MD - 11/27/2021 11:20 PM EDT Can return here for fever/vomiting; operations support professionals antibiotic your doctor prescribed you * Attachments The following attachments cannot be sent through Care Everywhere. * Flank Pain (Niuean) documented in this encounterSUMMA Work Phone: Consult note Author Dana Gonzales [facility] February 13, 2023 3:56pm Note Date/Time February 13, 2023 3:56pm [facility] Medical Records Department [address] [place] [address] Counseling Note - Pharmacy 02/13/23 1555 MR#: [id number] Acct: [id number] Name: CORRIE QUEEN Rep #:[id number] : 1960 62 From: Dana Gonzales PCP: CHERYL BASILIO Status:ADM TAMMY Y Location: [place] [address] Pharmacy [facility] Pharmacy Service has performed discharge medication reconciliation [...] signed by Dana Gonzales> Date _ Dana Juniorigner Signature (if applicable): Date CC: ~ Signed [facility] Work Phone: Evaluation + Plan note Future Appointments Appointment Date:01/09/2024 09:45:00 AM Scheduled Provider:BASIM RAMSEY MD Location:[facility] Appointment Type:ENDO OV Diagnostic Tests Pending * Testosterone,Free and Total 01/03/24 [facility] Evaluation + Plan note Future Appointments Appointment Date:04/21/2024 09:00:00 AM Scheduled Provider: Location:[facility] Appointment Type:ENDO Nurse Diagnostic Tests Pending [...] Level 08/14/24 * Complete Metabolic Panel 04/16/24 [facility] Evaluation note* Diagnosis Macroprolactinoma (HCC) Benign neoplasm [...] Pyelonephritis Pyelonephritis, unspecified Infection due to extended-spectrum hjqv-zvfterisn-iwgbugkvl Escherichia coli Other and unspecified Escherichia coli (E. coli) Sepsis due to Escherichia coli with acute renal failure without septic shock (HCC) Unspecified abdominal pain documented in this encounter [facility] Work Phone: Evaluation note* Diagnosis Right flank pain- Primary Abdominal pain, unspecified site documented in this encounter [facility] note* Diagnosis Combined arterial insufficiency and corporo-venous occlusive erectile dysfunction- Primary [facility]* Diagnosis Combined arterial insufficiency and corporo-venous occlusive erectile dysfunction- Primary documented in this encounter [facility] note* Diagnosis Recurrent UTI- Primary Urinary tract infection, site not specified Dysuria Urinary frequency Urinary urgency Urgency of urination Chronic right-sided low back pain without sciatica Leukocytes in urine Other nonspecific finding on examination of urine Hematuria, unspecified type [facility]* Diagnosis Recurrent UTI- Primary Urinary tract infection, site not specified Dysuria Urinary frequency Urinary urgency Urgency of urination Chronic right-sided low back pain without sciatica Leukocytes in urine Other nonspecific finding on examination of urine Hematuria, unspecified type [facility] Diagnosis Urinary tract infection symptoms- Primary documented in this encounter [facility]* Diagnosis Acute cystitis without hematuria- Primary [facility] Diagnosis Pleural effusion- Primary Unspecified pleural effusion History of tobacco abuse Centrilobular emphysema (HCC) documented in this encounter [facility]* Diagnosis Complex renal cyst Other specified congenital cystic kidney disease [facility] Diagnosis Recurrent UTI- Primary Urinary tract infection, site not specified Benign prostatic hyperplasia without lower urinary tract symptoms [facility]* Diagnosis Leg swelling- Primary Swelling of limb Acute deep vein thrombosis (DVT) of left lower extremity, unspecified vein (HCC) documented [facility] encounter [facility]* Diagnosis Acute deep vein thrombosis (DVT) of left lower extremity, unspecified vein (HCC)- Primary Acute deep vein thrombosis (DVT) of left lower extremity, unspecified vein (HCC) Ambulatory dysfunction documented in this encounter [facility] note* Diagnosis Acute deep vein thrombosis (DVT) of left lower extremity, unspecified vein (HCC)- Primary Acute deep vein thrombosis (DVT) of left lower extremity, unspecified vein (HCC) documented in this encounter [facility] note* Diagnosis Acute deep vein thrombosis (DVT) of left lower extremity, unspecified vein (HCC) [facility] Diagnosis Acute deep vein thrombosis (DVT) of left lower extremity, unspecified vein (HCC)- Primary [facility]* Diagnosis Deep vein thrombosis (DVT) of proximal vein of left lower extremity, unspecified chronicity (HCC)- Primary [facility]* Diagnosis Flank pain- Primary Abdominal pain, unspecified site 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) [facility]* Diagnosis Flank pain- Primary Abdominal pain, unspecified site 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) [facility]* Diagnosis Right flank pain Abdominal pain, unspecified site 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) [facility]* Diagnosis Acute right flank pain- Primary 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) [facility]* Diagnosis Sebaceous cyst of left eyelid- Primary [facility]* Diagnosis Bleeding- Primary Unspecified hemorrhage [facility]* Diagnosis Chronic deep vein thrombosis (DVT) of iliofemoral vein (HCC)- Primary [facility]* Diagnosis 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) [facility]* Diagnosis Macroprolactinoma (HCC)- Primary Benign neoplasm of pituitary gland and craniopharyngeal duct (pouch) Pituitary adenoma (HCC) 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 Hypercalcemia [facility]* Diagnosis Hypogonadism in male- Primary [facility]* Diagnosis 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) [facility]* Diagnosis Onset Date Resolution Status Ileofemoral deep vein thrombosis 2022 [facility] Work Phone: Evaluation note* Diagnosis Onset Date Resolution Status Ileofemoral deep vein thrombosis 2022 acute Ileofemoral deep vein thrombosis 2022 acute [facility] Work Phone: Evaluation note* Diagnosis Onset Date Resolution Status Deep vein thrombosis (DVT) o f iliac vein of left lower extremity chronic BPH (benign prostatic hyperplasia) acute Elevated blood pressure reading acute Fatty liver acute High cholesterol acute History of diverticulitis ac [place] History of renal disease acu te Pituitary abnormality acute Smoker acute Thyroid disease acute Deep vein thrombosis (DVT) o f iliac vein of left lower extremity chronic [facility] Work Phone: Evaluation note* Diagnosis Onset Date Resolution Status Deep vein thrombosis (DVT) o f iliac vein of left lower extremity chronic BPH (benign prostatic hyperplasia) acute Elevated blood pressure reading acute Fatty liver acute High cholesterol acute History of diverticulitis ac [place] History of renal disease acu te Pituitary abnormality acute Smoker acute Thyroid disease acute Deep vein thrombosis (DVT) o f iliac vein of left lower extremity chronic Flank pain acute History of renal disease acu te [facility] Work Phone: Evaluation note* Diagnosis Onset Date Resolution Status Ileofemoral deep vein thrombosis 2022 acute Ileofemoral deep vein thrombosis 2022 acute Deep vein thrombosis (DVT) o f iliac vein of left lower extremity chronic BPH (benign prostatic hyperplasia) acute Elevated blood pressure reading acute Fatty liver acute High cholesterol acute History of diverticulitis ac [place] History of renal disease acu te Pituitary abnormality acute Smoker acute Thyroid disease acute Deep vein thrombosis (DVT) o f iliac vein of left lower extremity chronic Flank pain acute History of renal disease acu te Flank pain acute Ileofemoral deep vein thrombosis 2022 acute [facility] Work Phone: Evaluation note* Diagnosis Onset Date Resolution Status Ileofemoral deep vein thrombosis 2022 acute Ileofemoral deep vein thrombosis 2022 acute Deep vein thrombosis (DVT) o f iliac vein of left lower extremity chronic BPH (benign prostatic hyperplasia) acute Elevated blood pressure reading acute Fatty liver acute High cholesterol acute History of diverticulitis ac [place] History of renal disease acu te Pituitary abnormality acute Smoker acute Thyroid disease acute Deep vein thrombosis (DVT) o f iliac vein of left lower extremity chronic Flank pain acute History of renal disease acu te Flank pain acute Ileofemoral deep vein thrombosis 2022 acute Flank pain acute [facility] Work Phone: Evaluation note* Diagnosis Onset Date Resolution Status Ileofemoral deep vein thrombosis 2022 acute Deep vein thrombosis (DVT) o f iliac vein of left lower extremity chronic BPH (benign prostatic hyperplasia) acute Elevated blood pressure reading acute Fatty liver acute High cholesterol acute History of diverticulitis ac [place] History of renal disease acu te Pituitary abnormality acute Smoker acute Thyroid disease acute Deep vein thrombosis (DVT) o f iliac vein of left lower extremity chronic Flank pain acute History of renal disease acu te Flank pain acute Ileofemoral deep vein thrombosis 2022 acute Flank pain acute [facility] Work Phone: Evaluation note* Diagnosis Onset Date Resolution Status Deep vein thrombosis (DVT) o f iliac vein of left lower extremity chronic BPH (benign prostatic hyperplasia) acute Elevated blood pressure reading acute Fatty liver acute High cholesterol acute History of diverticulitis ac [place] History of renal disease acu te Pituitary abnormality acute Smoker acute Thyroid disease acute Deep vein thrombosis (DVT) o f iliac vein of left lower extremity chronic Flank pain acute History of renal disease acu te Flank pain acute Ileofemoral deep vein thrombosis 2022 acute Flank pain acute [facility] Work Phone: Evaluation note* Diagnosis Pituitary adenoma (HCC)- Primary Benign neoplasm of pituitary gland and craniopharyngeal duct (pouch) Hypercalcemia 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) Other anterior pituitary disorders documented [facility]* Diagnosis Hypogonadism in male 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) [facility]* Diagnosis Pituitary adenoma (HCC) Benign neoplasm of pituitary gland and craniopharyngeal duct (pouch) [facility]* Diagnosis Acute cystitis without hematuria- Primary Flank pain Abdominal pain, unspecified site Essential hypertension, benign [facility]* Diagnosis Acute cystitis without hematuria- Primary Flank pain Abdominal pain, unspecified site Essential hypertension, benign [facility]* Diagnosis Acute right-sided low back pain without sciatica- Primary Right flank pain Abdominal pain, unspecified site [facility]* Diagnosis Complex renal cyst- Primary Other specified congenital cystic kidney disease documented in this encounter [facility] note* Diagnosis Right flank pain- Primary Abdominal pain, unspecified site Acute right-sided low back pain without sciatica documented in this encounter [facility] note* Diagnosis Right flank pain- Primary Abdominal pain, unspecified site Acute right-sided low back pain without sciatica documented in this encounter [facility] course Narrative No data available for this section [facility] Hospital Discharge instructions No data available for this section [facility] Hospital Discharge instructionsAdditional Instructions Your evaluation in the Emergency Department did not reveal any acute reason for admission. However, I want to emphasize that you may be early in the course of a disease process or illness even if it is not present. For this reason you should follow-up within 24 hours for reevaluation with either your primary care physician or if necessary back here in the Emergency Department. You should return to the Emergency Department immediately if your symptoms worsen or new symptoms develop. Take the Flexeril 1 tablet every 8 hours as needed for muscle spasms. Please take Tylenol at home scheduled throughout the day to help with pain. Apply the lidocaine patch to your right lower back and leave on for 12 hours. Return to the ED with any new or worsening symptoms. Please follow-up with your primary care doctor soon as possible.[facility] Work Phone: Progress note No data available for this section [facility] Reason for referral (narrative)* Consultation (Routine) - Closed Specialty Diagnoses / Procedures Referred By Contac t Referred To Contact Vascular Surgery Diagnoses Acute deep vein thrombosis (DVT) of left lower extremity, unspecified vein (HCC) Procedures SC OFFICE/OUTPATIENT NEW 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 Advance Directives No Advanced Directives Records FoundDocuments on File Type Date Recorded 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 Advance Directives and Living Will Power of Kiln Operator Helper Latest Code Status on File Code Status [...] February 06, 2 023 8:38am Power of Kiln Operator Helper No February 06, 2023 8:38am Advance Directive Response Recorded Date/ Time Living Will No February 06, 2 023 9:38am Power of Kiln Operator Helper No February 06, 2023 9:38am Date Activated Date Inactivated Comments 12/25/2022 8:25 AM 12/25/2022 7:01 PM Date Activated Date Inactivated Comments 10/13/2022 4:25 AM 10/16/2022 6:08 PM Date Activated Date Inactivated Comments 09/18/2022 1:19 AM 09/23/2022 3:25 PM Advance Directive Response Recorded Date/ Time Do you have a Healthcare Power of Kiln Operator Helper? No August 02, 2024 9:10am Advance Directive Response Recorded Date/ Time Do you have a Healthcare Power of Kiln Operator Helper? No August 02, 2024 9:10am Do you have a Healthcare Power of Kiln Operator Helper? No October 03, 2024 10:59am Advance Directive Response Recorded Date/ Time Do you have a Healthcare Power of Kiln Operator Helper? No October 03, 2024 10:59am Summary Purpose Family History No Family History [...] lung screening low dose Donna Roberts DO [address] [place] [id number] Referral ID Status Reason Start Date Expiration Date V isits Requested Visits Authorized [id number] Pending Review 10/10/2022 04/08/2023 1 1 Specialty Diagnoses / Procedures Referred By Contac t Referred To Contact Diagnoses History of tobacco abuse Centrilobular emphysema (HCC) Procedures Complete PFT pre and post bronchodilator Donna Roberts DO [address] [place] [address] Referral ID Status Reason Start Date Expiration Date V isits Requested Visits Authorized [id number] Incomplete 10/10/2022 04/08/2023 1 1 Specialty Diagnoses / Procedures Referred By Contac t Referred To Contact Diagnoses Benign prostatic hyperplasia without lower urinary tract symptoms Cheryl Basilio MD [address] [facility] [address] [place] [address] Referral ID Status Reason Start Date Expiration Date V isits Requested Visits Authorized [id number] Pending Review 1 1 Specialty Diagnoses / Procedures Referred By Contac t Referred To Contact Pacheco Negron MD [address] [place] [address] Referral ID Status Reason Start Date Expiration Date V isits Requested Visits Authorized [id number] Pending Review 1 1 Specialty Diagnoses / Procedures Referred By Contac t Referred To Contact Cardiology Diagnoses Acute deep vein thrombosis (DVT) of left lower extremity, unspecified vein (HCC) Procedures Vascular US lower extremity venous duplex bilateral Cheryl Basilio MD [address] [facility] [address] [place] [address] [facility] [address] [place] [address] Referral ID Status Reason Start Date Expiration Date Visits Re quested Visits Authorized [id number] Closed 11/14/2022 05/13/2023 1 1 Specialty Diagnoses / Procedures Referred By Contac t Referred To Contact Radiology Diagnoses Pituitary adenoma (HCC) Procedures MR pituitary w and wo IV contrast Rocio Calix MD [address] [place] [address] [address] [place] [address] Referral ID Status Reason Start Date Expiration Date V isits Requested Visits Authorized [id number] Pending Review 07/31/2023 07/30/2024 1 1 Referral ID Status Reason Start Date Expiration Date Visits Re quested Visits Authorized [id number] Closed 07/31/2023 07/30/2024 1 1 Specialty Diagnoses / Procedures Referred By Contac t Referred To Contact Radiology Diagnoses Right flank pain Acute right-sided low back pain without sciatica Procedures CT lumbar spine wo IV contrast Leanne Perales MD [address] [facility] [place] [address] Referral ID Status Reason Start Date Expiration Date V isits Requested Visits Authorized [id number] Pending Review 03/06/2022 09/02/2022 1 1 Specialty Diagnoses / Procedures Referred By Contac t Referred To Contact Physical Therapy Diagnoses Right flank pain Acute right-sided low back pain without sciatica Procedures SC OFFICE/OUTPATIENT NEW [facility] 60-74 MINUTES Leanne Perales MD [address] [facility] [place] [address] [facility] [address] [place] [address] [place] [address] Referral ID Status Reason Start Date Expiration Date Visits Requested Visits Authorized [id number] Pending Review Eval and Treat 03/27/2022 09/23/2022 [...] of lumbar region May 28, 2024 12:52pm Chief Complaint Admit Date Amb Documentation July 01, 2024 9:18am Pituitary July 17, 2024 8:13a m flank pain, eye August 02, 2024 8:46a m EYES ARE RUNNY, NOT FEELING RIGHT July 262024 3:23pm flank October 03, 2024 10: 33am Reason for Visit Admit Date Hypercalcemia July 17, 2024 8:13a m Hypogonadism male July 17, 2024 8:13a m 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 Hip Pain October 08 8:45am back pain October 09, 2024 10 :18am Chief Complaint Admit Date Pituitary July 17, 2024 8:13a m flank pain, eye August 02, 2024 8:46a m EYES ARE RUNNY, NOT FEELING RIGHT July 262024 3:23pm flank October 03, 2024 10: 33am Lower back pain. Hip Pain October 08 8:45am back pain October 09, 2024 10 :18am LUMBAR SPINE November 09, 2024 9:19am room 5 November 09, 2024 9:49am Chief Complaint Admit Date EYES ARE RUNNY, NOT FEELING RIGHT July 262024 3:23pm flank October 03, 2024 10: 33am Lower back pain. Hip Pain October 08 8:45am back pain October 09, 2024 10 :18am LUMBAR SPINE November 09, 2024 9:19am room 5 November 09, 2024 9:49am WORSENING PAIN X1 YR, RT RADICULOPATHY S eptember 2024 8:02am LUMBAR SPINE December 02, 2024 1: 24pm Reason for Visit Admit Date Sinusitis August 11, 2024 3:23 pm Musculoskeletal back pain October 08, 025 8:45am Degenerative disc disease (D DD) of lumbar region with discogenic back pain November 09, 2024 9:19am Lumbar radiculopathy November 09 9:19am Additional Source Comments Care Teams (unrecognized sec tion and content) Team Status: Active Member Role Status CHERYL BASILIO Primary Care Provider Active Team [...] Active Team Status: Active Member Role Status RUBI Casillas Primary Care Provider Active Team [...] Active Team Status: Inactive Member Role Status EDMUND Jovel Attending Provider Active Team Status: Inactive Member Role Status RUBI Casillas Attending Provider Active Team Status: Inactive Member Role Status Dates Dr. Ryan Ceja MD Admit Provider, Att ending Provider, Referring Provider Active KJ LUNA Primary Care Provider Active Dr. Fabio Day MD Other Provider Active Team Status: Inactive Member Role Status RUBI Casillas Primary Care Provid er, Attending Provider, Referring Provider Active Pricing/Signage Team Member Relationship Specialty Start Date End [place] [address] PCP - General 11/12/15 Pricing/Signage Team Member Relationship Specialty Start Date End [place] [address] PCP - General 11/12/15 Pricing/Signage Team Member Relationship Specialty Start Date End [place] [address] PCP - General 11/12/15 Pricing/Signage Team Member Relationship Specialty Start Date End [place] [address] PCP - General 11/12/15 Pricing/Signage Team Member Relationship Specialty Start Date End [place] [address] PCP - General 11/12/15 Pricing/Signage Team Member Relationship Specialty Start Date End [place] [address] PCP - General 11/12/15 Pricing/Signage Team Member Relationship Specialty Start Date End Date [facility] [place] [address] PCP - General 11/12/15 Pricing/Signage Team Member Relationship Specialty Start Date End [place] [address] PCP - General 11/12/15 Pricing/Signage Team Member Relationship Specialty Start Date End Date Leanne Perales MD [address] [facility] [place] [address] PCP - General 11/12/15 Pricing/Signage Team Member Relationship Specialty Start Date End Date Leanne Perales MD 25 [facility] [place] [address] PCP - General 11/12/15 Pricing/Signage Team Member Relationship Specialty Start Date End Date Leanne Perales MD [address] [facility] [place] [address] PCP - General 11/12/15 Pricing/Signage Team Member Relationship Specialty Start Date End Date Leanne Perales MD [address] [facility] [place] [address] PCP - General 11/12/15 Pricing/Signage Team Member Relationship Specialty Start Date End Date Leanne Perales MD [address] [facility] [place] [address] PCP - General 11/12/15 Pricing/Signage Team Member Relationship Specialty Start Date End Date Leanne Perales MD [address] [facility] [place] [address] PCP - General 11/12/15 Pricing/Signage Team Member Relationship Specialty Start Date End Date Leanne Perales MD [address] [facility] [place] [address] PCP - General 11/12/15 Pricing/Signage Team Member Relationship Specialty Start Date End Date Leanne Perales MD [address] [place] [address] PCP - General 11/12/15 Pricing/Signage Team Member Relationship Specialty Start Date End Date Leanne Perales [facility] [place] [address] PCP - General 11/12/15 Pricing/Signage Team Member Relationship Specialty Start Date End Date Leanne Perales [facility] [place] [address] PCP - General 11/12/15 Pricing/Signage Team Member Relationship Specialty Start Date End [place] [address] PCP - General 11/12/15 10/15/22 Cheryl Basilio MD [address] [place] [address] [address] [place] [address] PCP - General Internal Medicine 10/16/22 Pricing/Signage Team Member Relationship Specialty Start Date End Date Leanne Perales MD [address] [place] [address] PCP - General 11/12/15 10/15/22 Cheryl Basilio MD [address] [place] [address] [address] [place] [address] PCP - General Internal Medicine 10/16/22 Pricing/Signage Team Member Relationship Specialty Start Date End Date Cheryl Basilio MD [address] [place] [address] [address] [place] [address] PCP - General Internal Medicine 10/16/22 Pricing/Signage Team Member Relationship Specialty Start Date End Date Cheryl Basilio MD [address] [facility] [address] [place] [address] PCP - General Internal Medicine 10/16/22 Pricing/Signage Team Member Relationship Specialty Start Date End Date Cheryl Basilio MD [address] [facility] [facility] [address] [place] [address] PCP - General Internal Medicine 10/16/22 Pricing/Signage Team Member Relationship Specialty Start Date End Date Cheryl Basilio MD [address] [facility] [address] [place] [address] PCP - General Internal Medicine 10/16/22 Pricing/Signage Team Member Relationship Specialty Start Date End Date Cheryl Basilio MD [address] [facility] [address] [place] [address] PCP - General Internal Medicine 10/16/22 Pricing/Signage Team Member Relationship Specialty Start Date End Date Cheryl Basilio MD [address] [facility] [address] [place] [address] PCP - General Internal Medicine 10/16/22 Pricing/Signage Team Member Relationship Specialty Start Date End Date Cheryl Basilio MD [address] [facility] [address] [place] [address] PCP - General Internal Medicine 10/16/22 Pricing/Signage Team Member Relationship Specialty Start Date End Date Cheryl Basilio MD [address] [facility] [address] [place] [address] PCP - General Internal Medicine 10/16/22 Pricing/Signage Team Member Relationship Specialty Start Date End Date Cheryl Basilio MD [address] [place] [address] [address] [place] [address] PCP - General Internal Medicine 10/16/22 Ziggy Arauz MD [address] [place] [address] Consulting Physician Vascular Surgery 12/10/22 Pricing/Signage Team Member Relationship Specialty Start Date End Date Cheryl Basilio MD [address] [place] [address] [address] [place] [address] PCP - General Internal Medicine 10/16/22 Ziggy Arauz MD [address] [place] [address] Consulting Physician Vascular Surgery 12/10/22 Pricing/Signage Team Member Relationship Specialty Start Date End Date Cheryl Basilio MD [address] [place] [address] PCP - General Internal Medicine 10/16/22 Ziggy Arauz MD [address] [place] [address] Consulting Physician Vascular Surgery 12/10/22 Pricing/Signage Team Member Relationship Specialty Start Date End Date Cheryl Basilio MD [address] [place] [address] [address] [place] [address] PCP - General Internal Medicine 10/16/22 Ziggy Arauz MD [address] [place] [address] Consulting Physician Vascular Surgery 12/10/22 Pricing/Signage Team Member Relationship Specialty Start Date End Date Cheryl Basilio MD [address] [place] [address] [address] [place] [address] PCP - General Internal Medicine 10/16/22 Ziggy Arauz MD [address] [place] [address] Consulting Physician Vascular Surgery 12/10/22 Pricing/Signage Team Member Relationship Specialty Start Date End Date Cheryl Basilio MD [address] [place] [address] [address] [place] [address] PCP - General Internal Medicine 10/16/22 Ziggy Arauz MD [address] [place] [address] Consulting Physician Vascular Surgery 12/10/22 Pricing/Signage Team Member Relationship Specialty Start Date End Date Cheryl Basilio MD [address] [place] [address] [address] [place] [address] PCP - General Internal Medicine 10/16/22 Ziggy Arauz MD [address] [place] [address] Consulting Physician Vascular Surgery 12/10/22 Pricing/Signage Team Member Relationship Specialty Start Date End Date Cheryl Basilio MD [address] [place] [address] [address] [place] [address] PCP - General Internal Medicine 10/16/22 Ziggy Arauz MD [address] [address] Consulting Physician Vascular Surgery 12/10/22 Pricing/Signage Team Member Relationship Specialty Start Date End Date Cheryl Basilio MD [address] [facility] [address] [place] [address] PCP - General Internal Medicine 10/16/22 Ziggy Arauz MD [address] [place] [address] Consulting Physician Vascular Surgery 12/10/22 Pricing/Signage Team Member Relationship Specialty Start Date End Date Cheryl Basilio MD [address] [facility] [address] [place] [address] PCP - General Internal Medicine 10/16/22 Ziggy Arauz MD [address] [place] [address] Consulting Physician Vascular Surgery 12/10/22 Pricing/Signage Team Member Relationship Specialty Start Date End Date Cheryl Basilio MD [address] [facility] [address] [place] [address] PCP - General Internal Medicine 10/16/22 Ziggy Arauz MD [address] [facility] [address] [place] [address] Consulting Physician Vascular Surgery 12/10/22 Pricing/Signage Team Member Relationship Specialty Start Date End Date Cheryl Basilio MD [address] [facility] [address] [place] [address] PCP - General Internal Medicine 10/16/22 Ziggy Arauz MD [address] [place] [address] Consulting Physician Vascular Surgery 12/10/22 Pricing/Signage Team Member Relationship Specialty Start Date End Date Cheryl Basilio MD [address] [facility] [address] [place] [address] PCP - General Internal Medicine 10/16/22 Ziggy Arauz MD [address] [place] [address] Consulting Physician Vascular Surgery 12/10/22 Pricing/Signage Team Member Relationship Specialty Start Date End Date Cheryl Basilio MD [address] [place] [address] [address] [place] [address] PCP - General Internal Medicine 10/16/22 Ziggy Arauz MD [address] [place] [address] Consulting Physician Vascular Surgery 12/10/22 Pricing/Signage Team Member Relationship Specialty Start Date End Date Cheryl Basilio MD [address] [place] [address] [address] [place] [address] PCP - General Internal Medicine 10/16/22 Ziggy Arauz MD [address] [place] [address] Consulting Physician Vascular Surgery 12/10/22 Pricing/Signage Team Member Relationship Specialty Start Date End Date Cheryl Basilio MD [address] [place] [address] [address] [place] [address] PCP - General Internal Medicine 10/16/22 Ziggy Arauz MD [address] [place] [address] Consulting Physician Vascular Surgery 12/10/22 Pricing/Signage Team Member Relationship Specialty Start Date End Date Cheryl Basilio MD PCP - General Internal Medicine 10/16/22 Ziggy Arauz MD [address] [place] [address] Consulting Physician Vascular Surgery 12/10/22 Pricing/Signage Team Member Relationship Specialty Start Date End Date Cheryl Basilio MD [address] [place] [address] PCP - General Internal Medicine 04/30/23 Ziggy Arauz MD [address] [place] [address] Consulting Physician Vascular Surgery 12/10/22 Team Status: Inactive Member Role Status Dates EDMUND Mercedes Attending Provider Active Sanjana Hale NP-C Primary Care Provider, Referring Provider Active Team Status: Inactive Member Role Status Dates Sanjana Hale NP-C Primary Care Provider Active EDMUND Mercedes Attending Provider Active Team Status: Active Member Role Status Dates Sanjana Hale NP-Jewels Primary Care Provider Active Dr. Bull Lopez MD Attending Provider, Referr ing Provider Active Team Status: Inactive Member Role Status Dates Sanjana Hale NP-Jewels Primary Care Provider Active Dr. Bull Lopez MD Attending Provider, Referr ing Provider Active Team Status: Active Member Role Status Dates Sanjana Hale NP-Jewels Primary Care Provid er, Attending Provider, Referring Provider Active Pricing/Signage Team Member Relationship Specialty Start Date End Date Silvestre Sexton [address] [place] [phone] PCP - General Internal Medicine 07/31/23 Ziggy Arauz MD [address] [place] [address] Consulting Physician Vascular Surgery 12/10/22 Pricing/Signage Team Member Relationship Specialty Start Date End Date Silvestre Sexton [address] [place] [phone] PCP - General Internal Medicine 07/31/23 Ziggy Arauz MD [address] [facility] [address] [place] [address] Consulting Physician Vascular Surgery 12/10/22 Pricing/Signage Team Member Relationship Specialty Start Date End Date Silvestre Sexton [address] [place] [phone] PCP - General Internal Medicine 07/31/23 Ziggy Arauz MD [address] [facility] [address] [place] [address] Consulting Physician Vascular Surgery 12/10/22 Pricing/Signage Team Member Relationship Specialty Start Date End Date Leanne Perales MD [address] [place] [address] PCP - General 11/12/15 Pricing/Signage Team Member Relationship Specialty Start Date End Date Leanne Perales MD [address] [place] [address] PCP - General 11/12/15 Pricing/Signage Team Member Relationship Specialty Start Date End Date Leanne Perales MD [address] [place] [address] PCP - General 11/12/15 Pricing/Signage Team Member Relationship Specialty Start Date End Date Leanne Perales MD [address] [place] [address] PCP - General 11/12/15 Pricing/Signage Team Member Relationship Specialty Start Date End Date Leanne Perales MD [address] [place], [place] [address] [address] PCP - General 11/12/15 Pricing/Signage Team Member Relationship Specialty Start Date End Date Leanne Perales MD [address] [place], [place] [address] [address] PCP - General 11/12/15 Pricing/Signage Team Member Relationship Specialty Start Date End Date Leanne Perales MD [address] [place] [address] PCP - General 11/12/15 Pricing/Signage Team Member Relationship Specialty Start Date End Date Leanne Perales MD [address] [place] [address] PCP - General 11/12/15 Pricing/Signage Team Member Relationship Specialty Start Date End Date Leanne Perales MD [address] [place] [address] PCP - General 11/12/15 Team Status: Active Member Role Status Dates Dr. Justice Bailey , Primary Care Provider Active Team Status: Inactive Member Role Status Dates Sanjana Hale SERVICE ATTENDANT-C Primary Care Provider Active Start: February 25, 2024 End: February 25, 2024 Sanjana Hale SERVICE ATTENDANT-C Referring Provider Active S tart: February 25, 2024 End: February 25, 2024 David SHAFFER, PA Attending Provider Active Start: February 25, 2024 End: February 25, 2024 Team Status: Inactive Member Role Status Dates Sanjana aHle SERVICE ATTENDANT-C Primary Care Provider Active Start: March 18, 2024 End: March 18, 2024 Sanjana Hale SERVICE ATTENDANT-C Referring Provider Active S tart: March 18, 2024 End: March 18, 2024 EDMUND Jovel Attending Provider Active Star t: March 18, 2024 End: March 18, 2024 Team Status: Inactive Member Role Status Dates Sanjana Hale SERVICE ATTENDANT-C Referring Provider Active S tart: March 31, 2024 End: March 31, 2024 Dr. Justice Bailey , Primary Care Provider Active Start: March 31, 2024 End: March 31, 2024 Dr. Justice Bailey , Attending Provider Active Start: March 31, 2024 [...] Inactive Member Role Status Dates Dr. Justice Baiely DO Primary Care Provider Active Start: August [...] August 11, 2024 Dr. Justice Bailey DO Referring Provider Active Start: August 11, 2024 End: August 11, 2024 Team Status: Active Member Role/Relationship Status Dates Dr. Justice Bailey DO Primary Care Provider Active Team Status: Active Member Role/Relationship Status Dates Dr. Justice Bailey DO Primary Care Provider Active Start: July 01, 2024 Estefany Gonzalez MA Attending Provider Acti ve Start: July 01, 2024 Team Status: Inactive Member Role/Relationship Status Dates Dr. Justice Bailey DO Primary Care Provider Active Start: July 17, 2024 End: July 17, 2024 Dr. Justice Bailey DO Referring Provider Active Start: July 17, 2024 End: July 17, 2024 Dr. Franky Brewer MD Attending Provider Active Sta rt: July 17, 2024 End: July 17, 2024 Team Status: Inactive Member Role/Relationship Status Dates Dr. Justice Bailey DO Primary Care Provider Active Start: August 02, 2024 End: August 02, 2024 Dr. Rusty Hawkisn DO Attending Provider Active S tart: August 02, 2024 End: August 02, 2024 Dr. Rusty Hawkins DO Emergency Provider Active S tart: August 02, 2024 End: August 02, 2024 Team Status: Inactive Member Role/Relationship Status Dates Dr. Justice Bailey DO Primary Care Provider Active Start: August 11, 2024 End: August 11, 2024 Dr. Justice Bailey DO Attending Provider Active Start: August 11, 2024 End: August 11, 2024 Dr. Justice Bailey DO Referring Provider Active Start: August 11, 2024 End: August 11, 2024 Team Status: Inactive Member Role/Relationship Status Dates Dr. Justice Bailey DO Primary Care Provider Active Start: October 03, 2024 End: October 03, 2024 Dr. Ludy Luque MD Referring Provider Active S tart: October 03, 2024 End: October 03, 2024 Dr. Ludy Luque MD Emergency Provider Active S tart: October 03, 2024 End: October 03, 2024 Team Status: Inactive Member Role/Relationship Status Dates Dr. Justice Bailey DO Primary Care Provider Active Start: October 03, 2024 End: October 03, 2024 Dr. Ludy Luque MD Attending Provider Active S tart: October 03, 2024 End: October 03, 2024 Dr. Ludy Luque MD Referring Provider Active S tart: October 03, 2024 End: October 03, 2024 Dr. Ludy Luque MD Emergency Provider Active S tart: October 03, 2024 End: October 03, 2024 Team Status: Inactive Member Role/Relationship Status Dates Dr. Justice Bailey DO Primary Care Provider Active Start: October 08, 2024 End: October 08, 2024 Dr. Justice Bailey DO Referring Provider Active Start: October 08, 2024 End: October 08, 2024 Xiomara Johnston NP-C Attending Provider Active Start: October 08, 2024 End: October 08, 2024 Team Status: Inactive Member Role/Relationship Status Dates Dr. Justice Bailey DO Primary Care Provider Active Start: October 09, 2024 End: October 09, 2024 Xiomara Johnston SERVICE ATTENDANT-C Attending Provider Active Start: October 09, 2024 End: October 09, 2024 Xiomara Johnston SERVICE ATTENDANT-C Referring Provider Active Start: October 09, 2024 End: October 09, 2024 Team Status: Inactive Member Role/Relationship Status Dates Dr. Justice Bailey DO Primary Care Provider Active Start: July 17, 2024 End: July 17, 2024 Dr. Justice Bailey DO Referring Provider Active Start: July 17, 2024 End: July 17, 2024 Dr. Franky Brewer MD Attending Provider Active Sta rt: July 17, 2024 End: July 17, 2024 Team Status: Inactive Member Role/Relationship Status Dates Dr. Justice Bailey DO Primary Care Provider Active Start: August 02, 2024 End: August 02, 2024 Dr. Rusty Hawkins DO Attending Provider Active S tart: August 02, 2024 End: August 02, 2024 Dr. Rusty Hawkins DO Emergency Provider Active S tart: August 02, 2024 End: August 02, 2024 Team Status: Inactive Member Role/Relationship Status Dates Dr. Justice Bailey DO Primary Care Provider Active Start: August 11, 2024 End: August 11, 2024 Dr. Justice Bailey DO Attending Provider Active Start: August 11, 2024 End: August 11, 2024 Dr. Justice Bailey DO Referring Provider Active Start: August 11, 2024 End: August 11, 2024 Team Status: Inactive Member Role/Relationship Status Dates Dr. Justice Bailey DO Primary Care Provider Active Start: October 03, 2024 End: October 03, 2024 Dr. Ludy Luque MD Attending Provider Active S tart: October 03, 2024 End: October 03, 2024 Dr. Ludy Luque MD Referring Provider Active S tart: October 03, 2024 End: October 03, 2024 Dr. Ludy Luque MD Emergency Provider Active S tart: October 03, 2024 End: October 03, 2024 Team Status: Inactive Member Role/Relationship Status Dates Dr. Justice Bailey DO Primary Care Provider Active Start: October 08, 2024 End: October 08, 2024 Dr. Justice Bailey DO Referring Provider Active Start: October 08, 2024 End: October 08, 2024 RUBI Diehl Attending Provider Active Start: October 08, 2024 End: October 08, 2024 Team Status: Inactive Member Role/Relationship Status Dates Dr. Justice Bailey DO Primary Care Provider Active Start: October 09, 2024 End: October 09, 2024 RUBI Diehl Attending Provider Active Start: October 09, 2024 End: October 09, 2024 RUBI Diehl Referring Provider Active Start: October 09, 2024 End: October 09, 2024 Team Status: Active Member Role/Relationship Status Dates Dr. Justice Bailey DO Primary Care Provider Active Start: November 09, 2024 Dr. Justice Bailey DO Referring Provider Active Start: November 09, 2024 EDMUND Almanza Attending Provider Active Star t: November 09, 2024 Team Status: Inactive Member Role/Relationship Status Dates Dr. Justice Bailey DO Primary Care Provider Active Start: November 09, 2024 End: November 09, 2024 Dr. Carl Mccullough MD Attending Provider Active S tart: November 09, 2024 End: November 09, 2024 Team Status: Inactive Member Role/Relationship Status Dates Dr. Justice Bailey DO Primary Care Provider Active Start: November 09, 2024 End: November 09, 2024 Dr. Justice Bailey DO Referring Provider Active Start: November 09, 2024 End: November 09, 2024 EDMUND Almanza Attending Provider Active Star t: November 09, 2024 End: November 09, 2024 Team Status: Active Member Role/Relationship Status Dates Dr. Justice Bailey DO Primary care physician Active Team Status: Inactive Member Role/Relationship Status Dates Dr. Justice Bailey DO Primary care physician Active Start: August 11, 2024 End: August 11, 2024 Dr. Justice Bailey DO Attending physician Active Start: August 11, 2024 End: August 11, 2024 Dr. Justice Bailey DO Referring Provider Active Start: August 11, 2024 End: August 11, 2024 Team Status: Inactive Member Role/Relationship Status Dates Dr. Justice Bailey DO Primary care physician Active Start: October 03, 2024 End: October 03, 2024 Dr. Ludy Luque MD Attending physician Active Start: October 03, 2024 End: October 03, 2024 Dr. Ludy Luque MD Referring Provider Active S tart: October 03, 2024 End: October 03, 2024 Dr. Lud[facility] Active Start: October 03, 2024 End: October 03, 2024 Team Status: Inactive Member Role/Relationship Status Dates Dr. Justice Bailey DO Primary care physician Active Start: October 08, 2024 End: October 08, 2024 Dr. Justice Bailey DO Referring Provider Active Start: October 08, 2024 End: October 08, 2024 Xiomara Johnston NP-C Attending physician Active Start: October 08, 2024 End: October 08, 2024 Team Status: Inactive Member Role/Relationship Status Dates Dr. Justice Bailey DO Primary care physician Active Start: October 09, 2024 End: October 09, 2024 Xiomara Johnston NP-C Attending physician Active Start: October 09, 2024 End: October 09, 2024 Xiomara Johnston NP-C Referring Provider Active Start: October 09, 2024 End: October 09, 2024 Team Status: Inactive Member Role/Relationship Status Dates Dr. Justice Bailey DO Primary care physician Active Start: November 09, 2024 End: November 09, 2024 Dr. Justice Bailey DO Referring Provider Active Start: November 09, 2024 End: November 09, 2024 EDMUND Almanza Attending physician Active Sta rt: November 09, 2024 End: November 09, 2024 Team Status: Inactive Member Role/Relationship Status Dates Dr. Justice Bailey DO Primary care physician Active Start: November 09, 2024 End: November 09, 2024 Dr. Carl Mccullough MD Attending physician Active Start: November 09, 2024 End: November 09, 2024 Team Status: Active Member Role/Relationship Status Dates Dr. Justice Bailey DO Primary care physician Active Start: November 23, 2024 EDMUND Almanza Attending physician Active Sta rt: November 23, 2024 EDMUND Almanza Referring Provider Active Star t: November 23, 2024 Team Status: Inactive Member Role/Relationship Status Dates Dr. Justice Bailey DO Primary care physician Active Start: December 02, 2024 End: December 02, 2024 Dr. Justice Bailey DO Referring Provider Active Start: December 02, 2024 End: December 02, 2024 EDMUND Almanza Attending physician Active Sta rt: December 02, 2024 End: December 02, 2024 Reason for Visit (unrecogniz ed section [...] pelvis w contrast Leanne Perales MD [address] [facility], [facility] [place] [address] Referral ID Status Reason Start Date Expiration Date V isits Requested Visits Authorized [id number] Authorized 08/29/2022 02/25/2023 1 1 Reason Comments COPD Reason Comments New Patient Est care Reason Comments Leg Pain Reason Onset Date Comments ER Follow-up 10/15/2022 Reason Comments Leg Pain Specialty Diagnoses / Procedures Referred By Contac t Referred To Contact Diagnoses Ambulatory dysfunction Acute deep vein thrombosis (DVT) of left lower extremity, unspecified vein (HCC) Procedures . Yared Allison MD [address] [facility] [address] [place] [address] [facility] [address] [place] [address] Referral ID Status Reason Start Date Expiration Date Visits Re quested Visits Authorized [id number] 1 1 Reason Onset Date Comments Med [...] venous duplex bilateral Cheryl Basilio MD [address] [facility] [address] [place] [address] [facility] [address] [place] [address] Referral ID Status Reason Start Date Expiration Date Visits Re quested Visits Authorized [id number] Closed 11/14/2022 05/13/2023 1 1 Reason Onset [...] Ziggy Arauz MD [address] [place] [address] Referral ID Status Reason Start Date Expiration Date Visits Re quested Visits Authorized [id number] Closed 12/10/2022 06/08/2023 1 1 Reason Onset [...] of unspecified iliac vein (HCC) [I82.529] Procedures SC PRQ TRANSLUMINAL MECHANICAL THROMBECTOMY VEIN SC OPEN/PERQ PLACEMENT INTRAVASCULAR STENT SAME 1ST LEFT ILIOFEMORAL DEEP VEIN THROMBOSIS, THROMBECTOMY AND STENTING TRANSCATHETER PLACEMENT OF AN INTRAVASCULAR STENT(S), OPEN OR PERCUTANEOUS INITIAL VEIN Ziggy Arauz MD [address] [place] [address] [address] [place] [address] Referral ID Status Reason Start Date Expiration Date Visits Re quested Visits Authorized [id number] 1 1 Reason Comments Post-op Problem Surgery [...] 08/01/2023 Specialty Diagnoses / Procedures Referred By Contac t Referred To Contact Radiology Diagnoses Pituitary adenoma (HCC) Procedures MR pituitary w and wo IV contrast Rocio Calix MD [address] [facility] [address] [place] [address] Referral ID Status Reason Start Date Expiration Date Visits Re quested Visits Authorized [id number] Closed 07/31/2023 07/30/2024 1 1 Reason Comments [...] (Synthroid, Levoxyl) 100 MCG tablet [id number] - [place], [place] - [facility] [address] Pt leaving to go out [...] 1335, Until Discontinued, Indication of Use: Prophylaxis-DVT/PE 912 (Given - Provider: Nallely Villegas RN) ertapenem [...] Until Discontinued 2127 (Given - Provider: Sharon Escobedo RN) 2105 (Given - Provider: Sierra Barahona, [...] 1 dose 0911 (Given - Provider: Angela Harirs RN) bisacodyl (Dulcolax) suppository 10 mg (COMPLETED) [...] 160 mg, Oral, Daily, First dose on Sat10/13/22 at 0900, Substituted for Fenofibrate (Non-Formulary Dose). 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 0854 ([facility] - Prov ider: Disha Chen RN) PRN [...] on Sat12/25/22 at 1402, Intraprocedure 1402 ([facility] - [facility] ider: Ziggy Arauz MD) labetalol (Normodyne,Trandate) injection [...] section and content) DATE CREATED AUTHOR 12/01/2021 [facility] [employer] DATE CREATED AUTHOR AUTHOR'S ORGANIZ ATION 12/07/2021 [facility] [employer] DATE CREATED AUTHOR AUTHOR'S ORGANIZ ATION 09/28/2022 [facility] ([place]) DATE CREATED AUTHOR AUTHOR'S ORGANIZ ATION 11/26/2023 [facility] [employer] [facility] DATE CREATED AUTHOR AUTHOR'S ORGANIZ ATION 04/27/2024 [facility] DATE CREATED AUTHOR AUTHOR'S ORGANIZ ATION 12/20/2024 [facility] Ordered Prescriptions (unrec ognized section and [...] BE BASED ON THE PRIMARY CLINICAL RECORDS. [employer]. provides no warranty or guarantee of the accuracy or completeness of information in this document.
[2025-01-30 08:59] LABS: Hematocrit 53.3 % (40-54); Hemoglobin 17.8 g/dL (13.0-16.5); Immature Granulocytes Count 0.080 X10^3/uL (0.0-0.0); Mean Corp Hgb Conc 33.4 g/dL (32-36); Mean Corpuscular Volume 92.9 fL (80-94); Mean Platelet Vol. 9.5 fl (6.2-12.0); NRBC Flagged by Analyzer 0 % (0-5); Platelet Count 252 K/mm3 (150-450); RBC Distribution Width CV 14.2 % (11.6-14.6); RBC Distribution Width SD 48.6 fl (35.1-43.9); Red Blood Count 5.74 M/mm3 (4.6-6.2); White Blood Count 10.9 K/mm3 (4.4-11.0)
[2025-01-30 09:53] LABS: AST(SGOT) 25 U/L (<=37); Alanine Aminotransfer ALT/SGPT 18 U/L (<=46); Albumin, Serum 4.6 g/dL (3.4-4.8); Alkaline Phosphatase 59 U/L (40-129); Anion Gap 12 (5-15); BUN 22 mg/dL (4-19); BUN/Creat Ratio 17.7 RATIO (10-20); Calcium,Total 11.3 mg/dL (7.6-11.0); Carbon Dioxide 20.6 mmol/L (21.0-32.0); Chloride 105 mmol/L (98-108); Cholesterol 217 mg/dL (<=200); Globulin 3.3 g/dL (2.2-4.2); Glucose 114 mg/dL (70-99); Low Density Lipoprotein Calc. 140 mg/dL; PSA,Total - Annual Screen 0.26 ng/mL (0.02-4.00); Potassium 4.1 mmol/L (3.3-5.1); Triglycerides 214 mg/dL; Very Low Density Lipoprotein 43 mg/dL (5-40); Vitamin D,25 Hydroxy 29.5 ng/mL (30-100); cholesterol:hdl ratio screen 5.74
[2025-02-04 12:08] LABS: PROLACTIN 33.1 ng/mL (3.6-25.2); Testosterone, % Free 2.44 % (1.50-4.20); Testosterone, Free 3.03 ng/dL (5.00-21.00)
== END | disposition home or self-care (01) ==
LOC: LAB 08:29
PROVIDERS: Internal Medicine Endocrinology, Diabetes & Metabolism; PCP Family Medicine; Referring Provider Nurse Practitioner Family; Visit Provider Nurse Practitioner Family
DX: D35.2 Benign neoplasm of pituitary gland (principal); E29.1 Testicular hypofunction; E06.3 Autoimmune thyroiditis; E83.52 Hypercalcemia; F17.200 Nicotine dependence, unspecified, uncomplicated; E03.9 Hypothyroidism, unspecified
CPT/HCPCS: 36415; 80053; 80061; 82306; 84146; 84153; 84402; 84403; 84439; 84443; 85025; G0103

== ENCOUNTER → 2025-02-06 | Outpatient (CLI) | payer OTHER, SELFPAY ==
[2025-02-06 09:09] LABS: Mucous, Urine 0 SEEN /hpf (<or=2+); Red Blood Cells-Urine 0 SEEN /hpf (0-5)
--- OUTSIDE RECORDS SUMMARY | 2025-02-06 09:14 | XMS RPT_ITS | CCD ---
Author Organization [facility]ini[facility] Care Team Providers Care Facility Maintenance Mechanic Name Role Phone Leanne Perales Primary Care [...] Admit Provider Dr. Ryan Ceja Referring Provider [phone] Ryan Ceja Other Provider HCERYL BASILIO Primary Care Provider Dr. Fabio Day Other Provider EDMUND Clarke Attending Provider [phone] Ryan Ceja Referring Provider [phone] Janette King Attending Provider RUBI Hale Attending Provider [phone] Cheryl Basilio MD Primary Care Provider Cheryl [...] Care Unavailable PACHECO ORTIZ Attending Unavailab le CHREYL BASILIO Primary Care Unavailable CHERYL BASILIO Primary [...] Unavailable KJ, CHERYL Primary Care Unavailable ALEXIA CHINCHILLAN-BUFF WHEEL FABRICATOR, SANJANA M Primary Care Physician BASIM RAMSEY MD Attending Unavaila laurent HALE DIGITAL FORENSICS INVESTIGATOR-BUFF WHEEL FABRICATOR, SANJANA M Primary Care Lizz HALE APRN-BUFF WHEEL FABRICATOR, SANJANA M Primary Care BASIM Thibodeaux MD Attending Unavaila laurent Hale SUPERVISOR ACCOUNTING CLERKS-C, Sanjana Primary Care Provider Alexia SUPERVISOR ACCOUNTING CLERKS-C, Sanjana Referring Provider [phone] David Piña Attending Provider Dolly Stewart Attending Provider [phone] Justice Bailey DO Primary Care Provider [phone] Dr. Justice Bailey DO Attending Provider [phone] Dolly Stewart Referring Provider [phone] Ryan Ceja MD Attending Provider [phone] Yolanda Yates Attending Provider [phone] Justice Bailey DO Referring Provider Stanislaw Thomas Attending Provider Dolly Stewart Attending Provider [phone] Justice Bailey DO Primary Care Provider [phone] Estefany Gonzalez MA Attending Provider Unavailable King MARIA E, Dr. Wilkins Attending Provider Ross LOAIZA, Dr. Ojeda Emergency Provider Ungtesha DO, Dr. Ojeda Attending Provider Leo LOAIZA, Dr. Justice Issa Attending Provider [phone] Leo LOAIZA, Dr. Justice Issa Primary Care Provider [phone] Leo LOAIZA, Dr. Justice Issa Referring Provider [phone] Rebel SANDERSON, Dr. [place] Referring Provider Unavailab paula Luque MD, Dr. [place] Emergency Provider Unavailab paula Luque MD, Dr. [place] Attending Provider Unavailab le Keshiaerer SUPERVISOR ACCOUNTING CLERKS-C, Xiomara Attending Provider [phone] Ungerer SUPERVISOR ACCOUNTING CLERKS-C, Xiomara Referring Provider [phone] Leo LOAIZA, Dr. Justice Issa Primary Care Provider [phone] Sherry Woo Attending Provider [phone] Jamel SANDERSON, Dr. Henry Attending Provider [phone] Dr. Justice Bailey DO Primary Care Physician Dr. Justice Bailey DO Attending Physician [phone] Dr. Justice Bailey DO Referring Provider [phone] Dr. Ludy Luque MD Attending Physician Unavaila ble Rebel SANDERSON, Dr. [place] Emergency Department Physici an Unavailable Ungerer SUPERVISOR ACCOUNTING CLERKS-C, Xiomara Attending Physician Sherry Woo Attending Physician [...] Meperidine Drug Allergy 5 Nausea And Vomiting [facility] (20 sources) Meperidine; Translations: [meperidine] Drug Allergy 5 Nausea And Vomiting, Vomiting (disorder) [facility] [place] (1 source) Meperidine Drug Allergy 5 [facility] Repository Medications Current Medications Medication Drug [...] dose Verified by pharmacy, 10-13-22, Adolfo Hutton [facility] Start: 08-22-2022 End: 07-17-2024 take 1 tablet [...] Active docusate sodium 50 mg / sennosides, senior living 8.6 mg oral tablet (4 sources) Start: [...] (MACROBID) 100 MG capsule polyethylene glycol 3350 50847 mg powder for oral solution (6 sources) [...] qAM, # 75 gram(s), 1 Refill(s), Pharmacy: [id number], Low testosterone, 187.9, cm, [...] Episodic Comment on above: Hx pyelonephritis at [facility] 2022- required IV antibiotics via PICC [...] Onset: 3 10-12-2022 Episodic Comment on above: [facility] TRIED TO REMOVE IN 11/2022, UNSUCCESSFUL Pleurisy; [...] Facility Orthopedic Visit Reporton Orthopedic Visit Report [facility] [address] [place] [address] OFFICE VISIT Date of Service: 12/02/24 MR#: [id number] Acct: [id number] Name: CORRIE QUEEN Rep #: [id number] : 1960 Provider: EDMUND Almanza Age/Sex: 64/M Location: [facility] Status: Signed Intake Vital Signs 11/09/24 09:23 [...] of today???s visit was documented by Zofia Corrla MA, acting as scribe. CORRIE QUEEN is [...] He states that he went to the [place] [facility] about a month ago for his lower back. When he went in to the ER, they checked his kidneys, instead of his back. They took xrays on his lower back. He states that he would like to go over the xrays t (more content not included)... Normal [facility] Spine Lumbar (Routine)on Spine Lumbar (Routine) [facility] Imaging Services [address] [place] [address] Spine Lumbar (Routine) MR#: [id number] Acct: [id number] Name: CORRIE QUEEN Rep #: [id number] : 1960 M 64 From: Guy Celestin MD PCP: Dr. Justice Bailey, DO Status: REG CLI Study: Spine Lumbar (Routine) Date of Exam: 11/23/24 Exam# [id number] Ordering Dr: Sherry Venegas PROCEDURE: MRI SPINE [...] at L4-5, and right L5-S1. Reading Location: [facility] CC: EDMUND Almanza; Dr. Justice Bailey DO Health Care Law Specialist: Signed Normal [facility] L/S Spine Bending Flex/[place] 11-09-2024 L/S Spine Bending Flex/Ext [facility] Imaging Services [address] [place] [address] L/S Spine Bending Flex/Ext MR#: [id number] Acct: [id number] Name: CORRIE QUEEN Rep #: [id number] : 1960 M 64 From: Dwaine Elmore MD PCP: Dr. Justice Bailey DO Status: DEP AMB Study: L/S Spine Bending Flex/Ext Date of Exam: 11/09 Exam# [id number] Ordering Dr: Sherry Venegas PROCEDURE: L/S SPINE [...] changes without acute bony abnormalities. Reading Location: [facility] CC: EDMUND Almanza; Dr. Justice Bailey, Health Care Law Specialist: Signed Normal [facility] Orthopedic Visit Reporton Orthopedic Visit Report [facility] [address] [place] [address] [place] [address] OFFICE VISIT Date of Service: 11/09/24 MR#: [id number] Acct: [id number] Name: CORRIE QUEEN Rep #: [id number] : 1960 Provider: EDMUND Almanza Age/Sex: 64/M Location: [facility] Status: Signed Intake Vital Signs 10/08/24 09:03 [...] He states that he went to the [place] ER about a month ago for his [...] had 2 herniated disc. He went to [facility] for it, and gave him [...] states that (more content not included)... Normal [facility] L/S Spine Min 4 [facility] [place] 09-25 L/S Spine Min [address] [facility] Imaging Services [address] [place] [address] L/S Spine Min 4 Views MR#: [id number] Acct: [id number] Name: CORRIE QUEEN Rep #: [id number] : 1960 M 64 From: Julio Cesar castañeda MD PCP: Dr. Justice Bailey, DO Status: REG CLI Study: L/S Spine Min 4 Views Date of Exam: 10/09/24 Exam# [id number] Ordering Dr: Xiomara Johnston PROCEDURE: L/S SPINE [...] and spondylosis. Facet joint osteoarthritis. Reading Location: [id number] CC: RUBI Johnston; Dr. Justice Bailey DO Health Care Law Specialist: Signed Normal [facility] Internal Medicine Office Vis iton 10-08-2024 Internal Medicine Office Visit [facility] [address] [place] [address] OFFICE VISIT Date of Service: 10/08/24 MR#: [id number] Acct: [id number] Name: CORRIE QUEEN Rep #: [id number] : 1960 Provider: RUBI valles Age/Sex: 64/M Location: [facility] Status: Signed Intake Vital Signs 10/03/24 10:33 [...] Visit Reasons: Lower back pain. Hip Pain Staking Technician Required: No Is patient in pain?: Yes [...] bladder control, or weakness in legs. . [facility] Medical History Hypercalcemia Hypothyroidism due to [...] some h (more content not included)... Normal [facility] Abdomen/Pelvis W IV Cont ONL Yon 10-03-2024 Abdomen/Pelvis W IV Cont ONLY [facility] Imaging Services [address] [place] [address] Abdomen/Pelvis W IV Cont ONLY MR#: [id number] Acct: [id number] Name: CORRIE QUEEN Rep #: [id number] : 1960 M 64 From: Dwaine Elmore MD PCP: Dr. Justice Bailey, DO Status: [facility] ER Study: Abdomen/Pelvis W IV Cont ONLY Date of Exam: Exam# [id number] Ordering Dr: Ludy Luque MD PROCEDURE: ABDOMEN/PELVIS [...] abnormalities. Liver steatosis and hepatomegaly. Reading Location: [facility] CC: Dr. Justice Bailey DO; Dr. Ludy Luque MD Health Care Law Specialist: Signed Normal [facility] Absolute lymphocyte countOrd ered By: Ludy Luque on 10-03-2024 Lymphocytes Auto (Unsp spec) [#/Vol] 2.53 10*3/uL 0.83-4.51 [facility] Absolute neutrophil countOrd ered By: Ludy Luque on 10-03-2024 Neutrophils (Bld) [#/Vol] 4.4 10*3/uL 2.0-7.7 [facility] Anion gap in Serum or Plasma Ordered By: Ludy Luque on 10-03-2024 Anion gap [Moles/Vol] 10 mmol/L 5-15 [facility] Automated lymphocyte count a s percentage of total leukocytesOrdered By: Ludy Luque on 10-03-2024 Lymphocytes/100 WBC Auto (Unsp spec) 32.4 % 19-41 [facility] BUN/creatinine ratioOrdered By: Ludy Luque on 10-03-2024 Urea nitrogen/Creatinine [Mass ratio] 14.9 mg/mg 10-20 [facility] Basophil percentageOrdered B y: Ludy Luque on 10-03-2024 Basophils/100 WBC (Bld) 0.9 % 0-1 [facility] Bilirubin Test strip Ql (U)O rdered By: Ludy Luque on 10-03-2024 Bilirubin Ql (U) Negative Negative [facility] Bilirubin, totalOrdered By: Ludy Luque on 10-03-2024 Bilirubin [Mass/Vol] 0.40 mg/dL 0.00-1.30 [facility] CBC W/Diff, Automatedon 08 Absolute Lymph 2.53 X10 3/uL Normal 0.83-4.51 [facility] Comment on above: Performed By: #### L 100.0100 #### [facility] [address] [place], [address] Absolute Neut 4.4 X10 3/uL Normal 2.0-7.7 [facility] Comment on above: Performed By: #### L 100.0100 #### [facility] [address] [place], [address] Basophils/100 WBC (Bld) 0.9 % Normal 0-1 [facility] Comment on above: Performed By: #### L 100.0100 #### [facility] [address] [place], [address] Eosinophils/100 WBC (Bld) 2.3 % Normal 0-5 [facility] Comment on above: Performed By: #### L 100.0100 #### [facility] [address] [place], [address] Erythrocyte distribution width (RBC) [Ratio] 14.9 % High 11.6-14.6 [facility] Comment on above: Performed By: #### L 100.0100 #### [facility] [address] [place], [address] Hematocrit (Bld) [Volume fraction] 52.0 % Normal 40-54 [facility] Comment on above: Performed By: #### L 100.0100 #### [facility] [address] [place], [address] Hemoglobin (Bld) [Mass/Vol] 17.9 g/dL High 13.0-16.5 [facility] Comment on above: Performed By: #### L 100.0100 #### [facility] [address] [place], [address] IG% 0.600 Normal 0.0-0.9 [facility] Comment on above: Result Comment: IG% - Immature Granulocytes (promyelocytes, myelocytes and metamyelocytes) > 1% indicates that a LEFT SHIFT is Present. Performed By: #### L 100.0100 #### [facility] [address] [place], [address] Lymphocytes/100 WBC (Bld) 32.4 % Normal 19-41 [facility] Comment on above: Performed By: #### L 100.0100 #### [facility] [address] [place], [address] MCH (RBC) [Entitic mass] 31.1 pg Normal 27.0-32.0 [facility] Comment on above: Performed By: #### L 100.0100 #### [facility] [address] [place], [address] MCHC (RBC) [Mass/Vol] 34.4 g/dL Normal 32-36 [facility] Comment on above: Performed By: #### L 100.0100 #### [facility] [address] [place], [address] MCV (RBC) [Entitic vol] 90.3 fL Normal 80-94 [facility] Comment on above: Performed By: #### L 100.0100 #### [facility] [address] [place], [address] Monocytes/100 WBC (Bld) 6.9 % Normal 0-10 [facility] Comment on above: Performed By: #### L 100.0100 #### [facility] [address] [place], [address] Neutrophils/100 WBC (Bld) 56.9 % Normal 47-70 [facility] Comment on above: Performed By: #### L 100.0100 #### [facility] [address] [place], [address] Nucleated RBC (Bld) [#/Vol] 0 10*3/uL Normal 0-5 [facility] Comment on above: Performed By: #### L 100.0100 #### [facility] [address] [place], [address] Platelet mean volume (Bld) [Entitic vol] 9.6 fL Normal 6.2-12.0 [facility] Comment on above: Performed By: #### L 100.0100 #### [facility] [address] [place], [address] Platelets (Bld) [#/Vol] 226 10*3/uL Normal 150-450 [facility] Comment on above: Performed By: #### L 100.0100 #### [facility] [address] [place], [address] RBC (Bld) [#/Vol] 5.76 10*6/uL Normal 4.6-6.[address] [facility] Comment on above: Performed By: #### L 100.0100 #### [facility] [address] [place], [address] RDW SD 49.4 fl High 35.1-43.9 [facility] Comment on above: Performed By: #### L 100.0100 #### [facility] [address] [place], [address] WBC (Bld) [#/Vol] 7.8 10*3/uL Normal 4.4-11.0 [facility] Comment on above: Performed By: #### L 100.0100 #### [facility] [address] [place], [address] Carbon dioxide, total [Moles /volume] in Central venous bloodOrdered By: Ludy Luque on 10-03-2024 CO2 [Moles/Vol] 21.5 mmol/L 21.0-32.0 [facility] Chloride assayOrdered By: Kelvin Luque on 10-03-2024 Chloride [Moles/Vol] 104 mmol/L 98-108 [facility] Comprehensive Metabolic Prof ilon 10-03-2024 Albumin [Mass/Vol] 4.4 g/dL Normal 3.4-4.8 [facility] Comment on above: Performed By: #### L 500.4050, L501.2450 #### [facility] [address] [place], [address] Albumin/Globulin [Mass ratio] 1.5 {ratio} Normal 0.9-2.4 [facility] Comment on above: Performed By: #### L 500.4050, L501.2450 #### [facility] [address] [place], [address] ALK PHOS 80 U/L Normal 40-129 [facility] Comment on above: Performed By: #### L 500.4050, L501.2450 #### [facility] [address] [place], [address] ALT [Catalytic activity/Vol] 28 U/L Normal <=46 [facility] Comment on above: Performed By: #### L 500.4050, L501.2450 #### [facility] [address] [place], [address] AST [Catalytic activity/Vol] 29 U/L Normal <=37 [facility] Comment on above: Performed By: #### L 500.4050, L501.2450 #### [facility] [address] [place], [address] Bilirubin [Mass/Vol] 0.40 mg/dL Normal 0.00-1.30 [facility] Comment on above: Performed By: #### L 500.4050, L501.2450 #### [facility] [address] [place], [address] BUN/CRE 14.9 RATIO Normal 10-20 [facility] Comment on above: Performed By: #### L 500.4050, L501.2450 #### [facility] [address] [place], [address] Calcium [Mass/Vol] 10.8 mg/dL Normal 7.6-11.0 [facility] Comment on above: Performed By: #### L 500.4050, L501.2450 #### [facility] [address] [place], [address] Chloride [Moles/Vol] 104 mmol/L Normal 98-108 [facility] Comment on above: Performed By: #### L 500.4050, L501.2450 #### [facility] [address] [place], [address] CO2 [Moles/Vol] 21.5 mmol/L Normal 21.0-32.0 [facility] Comment on above: Performed By: #### L 500.4050, L501.2450 #### [facility] [address] [place], [address] Creatinine [Mass/Vol] 1.02 mg/dL Normal 0.70-1.20 [facility] Comment on above: Performed By: #### L 500.4050, L501.2450 #### [facility] [address] [place], [address] ECRCL 96.38 ml/min Normal 50-250 [facility] Comment on above: Performed By: #### L 500.4050, L501.2450 #### [facility] [address] [place], [address] GAP 10 Normal 5-15 [facility] Comment on above: Performed By: #### L 500.4050, L501.2450 #### [facility] [address] [place], [address] GFR/1.73 sq M.predicted among non-blacks MDRD (S/P/Bld) [Vol rate/Area] 83 mL/min/{1.73_m2} Normal >60 [facility] Comment on above: Result Comment: mL/m in/1.73m2 CKD-EPI Creatinine Equation (2020) Performed By: #### L 500.4050, L501.2450 #### [facility] [address] [place], [address] Globulin (S) [Mass/Vol] 3.1 g/dL Normal 2.2-4.2 [facility] Comment on above: Performed By: #### L 500.4050, L501.2450 #### [facility] [address] [place], [address] Glucose [Mass/Vol] 97 mg/dL Normal 70-99 [facility] Comment on above: Performed By: #### L 500.4050, L501.2450 #### [facility] [address] [place], [address] Potassium [Moles/Vol] 4.5 mmol/L Normal 3.3-5.1 [facility] Comment on above: Performed By: #### L 500.4050, L501.2450 #### [facility] [address] [place], [address] Sodium [Moles/Vol] 136 mmol/L Normal 133-145 [facility] Comment on above: Performed By: #### L 500.4050, L501.2450 #### [facility] [address] [place], [address] T PROT 7.5 g/dL Normal 5.9-8.4 [facility] Comment on above: Performed By: #### L 500.4050, L501.2450 #### [facility] [address] [place], [address] Urea nitrogen [Mass/Vol] 15 mg/dL Normal 4-19 [facility] Comment on above: Performed By: #### L 500.4050, L501.2450 #### [facility] [address] [place], [address] Emergency Department Summary on 10-03-2024 Emergency Department Summary [facility] Medical Records Department [address] [place] [address] Emergency Department Summary 10/03/24 MR#: [id number] Acct: [id number] Name: CORRIE QUEEN Rep #: [id number] : 1960 64 From: Ludy Luque MD [...] anesthesia, numbness or weakness in his legs. 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 Normal [facility] Eosinophil percentageOrdered By: Ludy Luque on 10-03-2024 Eosinophils/100 WBC (Bld) 2.3 % 0-5 [facility] Erythrocyte distribution wid th ratioOrdered By: Ludy Luque on 10-03-2024 Erythrocyte distribution width (RBC) [Ratio] 14.9 % High 11.6-14.6 [facility] Erythrocyte distribution wid th standard deviationOrdered By: Ludy Luque on 10-03-2024 Erythrocyte distribution width (RBC) [Ratio] 49.4 fl High 35.1-43.9 [facility] Glomerular filtration rate ( GFR) estimation/1.73 sq m using serum, plasma, or whole bOrdered By: uLdy Luque on 10-03-2024 GFR/1.73 sq M.predicted among non-blacks MDRD (S/P/Bld) [Vol rate/Area] 83 mL/min/{1.73_m2} >60 [facility] Comment on above: mL/min/1.73m2 CKD-EP I Creatinine Equation (2020) Hematocrit Auto (Bld) [Volum e fraction]Ordered By: Ludy Luque on 10-03-2024 Hematocrit (Bld) [Volume fraction] 52.0 % 40-54 [facility] Hemoglobin measurementOrdere d By: Ludy Luque on 10-03-2024 Hemoglobin (Bld) [Mass/Vol] 17.9 g/dL High 13.0-16.5 [facility] Immature granulocytes/100 WB C Auto (Bld)Ordered By: Ludy Luque on 10-03-2024 Immature granulocytes/100 WBC (Bld) 0.600 % 0.0-0.9 [facility] Comment on above: IG% - Immature Granu locytes (promyelocytes, myelocytes and metamyelocytes) > 1% indicates that a LEFT SHIFT is Present. Ketones Test strip Ql (U)Ord ered By: Ludy Luque on 10-03-2024 Ketones Ql (U) Negative Negative [facility] - Chemistry and C hemistry - challengeOrdered By: Ludy Luque on 10-03-2024 AST [Catalytic activity/Vol] 29 U/L <38 [facility] Lipaseon 10-03-2024 Lipase [Catalytic activity/Vol] 27 U/L Normal 13-75 [facility] Comment on above: Result Comment: Plea se note: LIPASE revised reference range effective 22. New Lipase methodology. Expected to produce lower values than the previous assay method. NEW Reference Range: 13 - 75 U/L Performed By: #### L 500.4050, L501.2450 #### [facility] [address] [place], [address] Lipase measurementOrdered By : Ludy Luque on 10-03-2024 Lipase [Catalytic activity/Vol] 27 U/L 13-75 [facility] Comment on above: Please note:LIPASE r evised reference range effective 22. New Lipase methodology. Expected to produce lower values than the previous assay method. NEW Reference Range: 13 - 75 U/L MCV (mean corpuscular volume ) determinationOrdered By: Ludy Luque on 10-03-2024 MCV (RBC) [Entitic vol] 90.3 fL 80-94 [facility] Mean corpuscular hemoglobin (MCH) determinationOrdered By: Ludy Luque on 10-03-2024 MCH (RBC) [Entitic mass] 31.1 pg 27.0-32.0 [facility] Mean corpuscular hemoglobin concentration (MCHC) determinationOrdered By: Ludy Luque on 10-03-2024 MCHC (RBC) [Mass/Vol] 34.4 g/dL 32-36 [facility] Mean platelet volume determi nationOrdered By: Ludy Luque on 10-03-2024 Platelet mean volume (Bld) [Entitic vol] 9.6 fL 6.2-12.0 [facility] Microscopic analysis of urin e for red blood cells (RBC)Ordered By: Luyd Luque on 10-03-2024 Microscopic analysis of urine for red blood cells (RBC) 0 SEEN /hpf 0-5 [facility] Monocyte percentageOrdered B y: Ludy Luque on 10-03-2024 Monocytes/100 WBC (Bld) 6.9 % 0-10 [facility] Mucus LM Ql (Urine sed)Order ed By: Ludy Luque on 10-03-2024 Mucus Ql (Urine sed) 0 SEEN /hpf [facility] Neutrophil percentageOrdered By: Ludy Luque on 10-03-2024 Neutrophils/100 WBC (Bld) 56.9 % 47-70 [facility] Nitrite Test strip Ql (U)Ord ered By: Ludy Luque on 10-03-2024 Nitrite Ql (U) Negative Negative [facility] Nucleated red blood cell per centageOrdered By: Ludy Luque on 10-03-2024 Nucleated RBC/100 WBC (Bld) [Ratio] 0 % 0-5 [facility] Platelet countOrdered By: Kelvin Luque on 10-03-2024 Platelets (Bld) [#/Vol] 226 10*3/uL 150-450 [facility] Potassium measurement (mass/ volume)Ordered By: Ludy Luque on 10-03-2024 Potassium (Unsp spec) [Mass/Vol] 4.5 mmol/L 3.3-5.1 [facility] Protein Test strip Ql (U)Ord ered By: Ludy Luque on 10-03-2024 Protein Ql (U) Negative Negative [facility] RBC Auto (Bld) [#/Vol]Ordere d By: Ludy Luque on 10-03-2024 RBC (Bld) [#/Vol] 5.76 10*6/uL 4.6-6.[address] [facility] Serum creatinine measurement (mass/volume)Ordered By: Ludy Luque on 10-03-2024 Creatinine [Mass/Vol] 1.02 mg/dL 0.70-1.20 [facility] Serum globulin measurementOr dered By: Ludy Luque on 10-03-2024 Globulin (S) [Mass/Vol] 3.1 g/dL 2.2-4.2 [facility] Serum glucose measurement (m ass/volume)Ordered By: Ludy Luque on 10-03-2024 Glucose [Mass/Vol] 97 mg/dL 70-99 [facility] [facility] Serum or plasma alanine koo otransferase (ALT) measurementOrdered By: Lduy Luque on 10-03-2024 ALT [Catalytic activity/Vol] 28 U/L <47 [facility] Serum or plasma albumin jamila urement (mass/volume)Ordered By: Ludy Luque on 10-03-2024 Albumin [Mass/Vol] 4.4 g/dL 3.4-4.8 [facility] Serum or plasma albumin/glob ulin mass ratioOrdered By: Ludy Luque on 10-03-2024 Albumin/Globulin [Mass ratio] 1.5 {ratio} 0.9-2.4 [facility] Serum or plasma alkaline nohemi sphatase measurementOrdered By: Ludy Luque on 10-03-2024 ALP [Catalytic activity/Vol] 80 U/L 40-129 [facility] Serum or plasma calcium jamila urement (mass/volume)Ordered By: Ludy Luque on 10-03-2024 Calcium [Mass/Vol] 10.8 mg/dL 7.6-11.0 [facility] Serum or plasma urea nitroge n measurement (mass/volume)Ordered By: Ludy Luque on 10-03-2024 Urea nitrogen [Mass/Vol] 15 mg/dL 4-19 [facility] Sodium levelOrdered By: Ryan Luque on 10-03-2024 Sodium [Moles/Vol] 136 mmol/L 133-145 [facility] Squamous epithelial cells de tection in urine sediment by light microscopyOrdered By: Ludy Luque on 10-03-2024 Epithelial cells.squamous LM Ql (Urine sed) 5-10 SEEN /hpf 0-5 [facility] Total proteinOrdered By: Suzette Luque on 10-03-2024 Protein [Mass/Vol] 7.5 g/dL 5.9-8.4 [facility] Urinalysis, Completeon 10-03 EPI,SQUAMOUS 5-10 SEEN Normal 0-5 [facility] Comment on above: Order Comment: CLEAN CATCH Performed By: #### L 400.0001 #### [facility] [address] [place], [address] BACTERIA 0 SEEN Normal None Seen [facility] Comment on above: Order Comment: CLEAN CATCH Performed By: #### L 400.0001 #### [facility] [address] [place], [address] Mucus Ql (Urine sed) 0 SEEN Normal [facility] Comment on above: Order Comment: CLEAN CATCH Performed By: #### L 400.0001 #### [facility] [address] [place], [address] RBC 0 SEEN Normal 0-5 [facility] Comment on above: Order Comment: CLEAN CATCH Performed By: #### L 400.0001 #### [facility] [address] [place], [address] WBC 0 SEEN Normal 0-5 [facility] Comment on above: Order Comment: CLEAN CATCH Performed By: #### L 400.0001 #### [facility] [address] [place], [address] Urine clarityOrdered By: Suzette Luque on 10-03-2024 Clarity (U) Clear Clear [facility] Urine color determinationOrd ered By: Ludy Luque on 10-03-2024 Color (U) Yellow Yellow [facility] Urine glucose detectionOrder ed By: Ludy Luque on 10-03-2024 Glucose Ql (U) Normal mg/dl Normal [facility] Urine leukocyte esterase det ection by dipstickOrdered By: Ludy Luque on 10-03-2024 Leukocyte esterase Test strip Ql (U) Negative Negative [facility] Urine pHOrdered By: Ludy butts on 10-03-2024 pH (U) 6.0 [pH] 5.0 - 8.0 [facility] Urine sediment bacteria coun t by microscopy (number/high power field)Ordered By: Ludy Luque on 10-03-2024 Bacteria LM.HPF (Urine sed) [#/Area] 0 /[HPF] None Seen [facility] Urine specific gravity measu rementOrdered By: Ludy Luque on 10-03-2024 Specific gravity (U) [Rel density] 1.020 1.002-1.030 [facility] Urine urobilinogen measureme ntOrdered By: Ludy Luque on 10-03-2024 Urobilinogen Ql (U) Normal mg/dl Normal [facility] White blood cell (WBC) count Ordered By: Ludy Luque on 10-03-2024 WBC (Bld) [#/Vol] 7.8 10*3/uL 4.4-11.0 [facility] White blood cell countOrdere d By: Ludy Luque on 10-03-2024 White blood cell count 0 SEEN /hpf 0-5 [facility] Internal Medicine Office Vis iton 08-11-2024 Internal Medicine Office Visit [facility] [address] [place], [place] [address] OFFICE VISIT Date of Service: 08/11/24 MR#: [id number] Acct: [id number] Name: CORRIE QUEEN Rep #: [id number] [...] Performing Provider: Justice Bailey DO Performing Location: [facility] Administered by: Estefany Gonzalez MA on 08/11/24 16:48 Dose Route Admin Location Dispensed Lot Number Expiration Date ND Man ufacturer 40 mg IM RGM 1 mL [id number] 05/26/25 1528-2707-21 [facility] SQUIBB Date cc: * Signed Intake [...] RIGHT Chief Complaint: eyes pressure and congestion Staking Technician Required: No Accompanied by: Self Is [...] of breath, (more content not included)... Normal [facility] Abdomen/Pelvis without Conto n 08-02-2024 Abdomen/Pelvis without Cont [facility] Imaging Services [address] [place] [address] Abdomen/Pelvis without Cont MR#: [id number] Acct: [id number] Name: CORRIE QUEEN Rep #: [id number] : 1960 M 63 From: Geovani montano MD PCP: Dr. Justice Bailey, DO Status: REG ER Study: Abdomen/Pelvis without Cont Date of Exam: 10/19 Exam# [id number] Ordering Dr: Rusty Hawkins DO PROCEDURE: ABDOMEN/PELVIS [...] 2. Hepatosplenomegaly and diffuse steatosis. [facility] CC: Dr. Justice Bailey, DO; Dr. Rusty Hawkins, DO Health Care Law Specialist: Signed Normal [facility] Absolute lymphocyte countOrd ered By: Rusty Hawkins on 08-02-2024 Lymphocytes Auto (Unsp spec) [#/Vol] 1.89 10*3/uL 0.83-4.51 [facility] Absolute neutrophil countOrd ered By: Rusty Hawkins on 08-02-2024 Neutrophils (Bld) [#/Vol] 7.6 10*3/uL 2.0-7.7 [facility] Anion gap in Serum or Plasma Ordered By: Rusty Hawkins on 08-02-2024 Anion gap [Moles/Vol] 11 mmol/L 5-15 [facility] Automated lymphocyte count a s percentage of total leukocytesOrdered By: Rusty Hawkins on 08-02-2024 Lymphocytes/100 WBC Auto (Unsp spec) 17.5 % Low 19-41 [facility] BUN/creatinine ratioOrdered By: Rusty Hawkins on 08-02-2024 Urea nitrogen/Creatinine [Mass ratio] 15.9 mg/mg 10- [facility] Basic Metabolic Profile (BMP )on 08-02-2024 BUN/CRE 15.9 RATIO Normal -20 [facility] Comment on above: Performed By: #### L 100.0100, L500.2500 ####[facility] [address] [place], [address] Calcium [Mass/Vol] 10.3 mg/dL Normal 7.6-11.0 [facility] Comment on above: Performed By: #### L 100.0100, L500.2500 ####[facility] [address] [place], [address] Chloride [Moles/Vol] 104 mmol/L Normal 98-108 [facility] Comment on above: Performed By: #### L 100.0100, L500.2500 ####[facility] [address] [place], [address] CO2 [Moles/Vol] 23.0 mmol/L Normal 21.0-32.0 [facility] Comment on above: Performed By: #### L 100.0100, L500.2500 ####[facility] [address] [place], [address] Creatinine [Mass/Vol] 0.94 mg/dL Normal 0.70-1.20 [facility] Comment on above: Performed By: #### L 100.0100, L500.2500 ####[facility] [address] [place], [address] ECRCL 105.56 ml/min Normal 50-250 [facility] Comment on above: Performed By: #### L 100.0100, L500.2500 ####[facility] [address] [place], [address] GAP 11 Normal 5-15 [facility] Comment on above: Performed By: #### L 100.0100, L500.2500 ####[facility] [address] [place], [address] GFR/1.73 sq M.predicted among non-blacks MDRD (S/P/Bld) [Vol rate/Area] 92 mL/min/{1.73_m2} Normal >60 [facility] Comment on above: Result Comment: mL/m in/1.73m2 CKD-EPI Creatinine Equation (2020) Performed By: #### L 100.0100, L500.2500 ####[facility] [address] [place], [address] Glucose [Mass/Vol] 105 mg/dL High 70-99 [facility] Comment on above: Performed By: #### L 100.0100, L500.2500 ####[facility] [address] [place], [address] Potassium [Moles/Vol] 4.1 mmol/L Normal 3.3-5.1 [facility] Comment on above: Performed By: #### L 100.0100, L500.2500 ####[facility] [address] [place], [address] Sodium [Moles/Vol] 138 mmol/L Normal 133-145 [facility] Comment on above: Performed By: #### L 100.0100, L500.2500 ####[facility] [address] [place], [address] Urea nitrogen [Mass/Vol] 15 mg/dL Normal 4-19 [facility] Comment on above: Performed By: #### L 100.0100, L500.2500 ####[facility] [address] [place], [address] Basophil percentageOrdered B y: Remus Ross on 08-02-2024 Basophils/100 WBC (Bld) 0.8 % 0-1 [facility] Bilirubin Test strip Ql (U)O rdered By: Remus Ungtesha on 08-02-2024 Bilirubin Ql (U) Negative Negative [facility] CBC W/Diff, Automatedon Absolute Lymph 1.89 X10 3/uL Normal 0.83-4.51 [facility] Comment on above: Performed By: #### L 100.0100, L500.2500 ####[facility] [address] [place], [address] Absolute Neut 7.6 X10 3/uL Normal 2.0-7.7 [facility] Comment on above: Performed By: #### L 100.0100, L500.2500 ####[facility] [address] [place], [address] Basophils/100 WBC (Bld) 0.8 % Normal 0-1 [facility] Comment on above: Performed By: #### L 100.0100, L500.2500 ####[facility] [address] [place], [address] Eosinophils/100 WBC (Bld) 1.9 % Normal 0-5 [facility] Comment on above: Performed By: #### L 100.0100, L500.2500 ####[facility] [address] [place], [address] Erythrocyte distribution width (RBC) [Ratio] 14.1 % Normal 11.6-14.6 [facility] Comment on above: Performed By: #### L 100.0100, L500.2500 ####[facility] [address] [place], [address] Hematocrit (Bld) [Volume fraction] 49.7 % Normal 40-54 [facility] Comment on above: Performed By: #### L 100.0100, L500.2500 ####[facility] [address] [place], [address] Hemoglobin (Bld) [Mass/Vol] 16.8 g/dL High 13.0-16.5 [facility] Comment on above: Performed By: #### L 100.0100, L500.2500 ####[facility] [address] [place], [address] IG% 0.400 Normal 0.0-0.9 [facility] Comment on above: Result Comment: IG% - Immature Granulocytes (promyelocytes, myelocytes and metamyelocytes) > 1% indicates that a LEFT SHIFT is Present. Performed By: #### L 100.0100, L500.2500 ####[facility] [address] [place], [address] Lymphocytes/100 WBC (Bld) 17.5 % Low 19-41 [facility] Comment on above: Performed By: #### L 100.0100, L500.2500 ####[facility] [address] [place], [address] MCH (RBC) [Entitic mass] 29.8 pg Normal 27.0-32.0 [facility] Comment on above: Performed By: #### L 100.0100, L500.2500 ####[facility] [address] [place], [address] MCHC (RBC) [Mass/Vol] 33.8 g/dL Normal 32-36 [facility] Comment on above: Performed By: #### L 100.0100, L500.2500 ####[facility] [address] [place], [address] MCV (RBC) [Entitic vol] 88.1 fL Normal 80-94 [facility] Comment on above: Performed By: #### L 100.0100, L500.2500 ####[facility] [address] [place], [address] Monocytes/100 WBC (Bld) 8.9 % Normal 0-10 [facility] Comment on above: Performed By: #### L 100.0100, L500.2500 ####[facility] [address] [place], [address] Neutrophils/100 WBC (Bld) 70.5 % High 47-70 [facility] Comment on above: Performed By: #### L 100.0100, L500.2500 ####[facility] [address] [place], [address] Nucleated RBC (Bld) [#/Vol] 0 10*3/uL Normal 0-5 [facility] Comment on above: Performed By: #### L 100.0100, L500.2500 ####[facility] [address] [place], [address] Platelet mean volume (Bld) [Entitic vol] 9.1 fL Normal 6.2-12.0 [facility] Comment on above: Performed By: #### L 100.0100, L500.2500 ####[facility] [address] [place], [address] Platelets (Bld) [#/Vol] 263 10*3/uL Normal 150-450 [facility] Comment on above: Performed By: #### L 100.0100, L500.2500 ####[facility] [address] [place], [address] RBC (Bld) [#/Vol] 5.64 10*6/uL Normal 4.6-6.[address] [facility] Comment on above: Performed By: #### L 100.0100, L500.2500 ####[facility] [address] [place], [address] RDW SD 45.4 fl High 35.1-43.9 [facility] Comment on above: Performed By: #### L 100.0100, L500.2500 ####[facility] [address] [place], [address] WBC (Bld) [#/Vol] 10.8 10*3/uL Normal 4.4-11.[address] [facility] Comment on above: Performed By: #### L 100.0100, L500.2500 ####[facility] [address] [place], [address] Carbon dioxide, total [Moles /volume] in Central venous bloodOrdered By: Rusty Hawkins on 08-02-2024 CO2 [Moles/Vol] 23.0 mmol/L 21.0-32.0 [facility] Chloride assayOrdered By: Karine Hawkins on 08-02-2024 Chloride [Moles/Vol] 104 mmol/L 98-108 [facility] Emergency Department Summary on 08-02-2024 Emergency Department Summary [facility] Medical Records Department [address] [place] [address] Emergency Department Summary 08/02/24 MR#: [id number] Acct: [id number] Name: CORRIE QUEEN Rep #: [id number] : 1960 63 From: Rusty Hawkins DO [...] related to that. Patient's had prior cholecystectomy. 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 Normal [facility] Eosinophil percentageOrdered By: Rusty Hawkins on 08-02-2024 Eosinophils/100 WBC (Bld) 1.9 % 0-5 [facility] Erythrocyte distribution wid th ratioOrdered By: [facility] on 08-02-2024 Erythrocyte distribution width (RBC) [Ratio] 14.1 % 11.6-14.6 [facility] Erythrocyte distribution wid th standard deviationOrdered By: [facility] on 08-02-2024 Erythrocyte distribution width (RBC) [Ratio] 45.4 fl High 35.1-43.9 [facility] Glomerular filtration rate ( GFR) estimation/1.73 sq m using serum, plasma, or whole bOrdered By: Rusty Hawkins on 08-02-2024 GFR/1.73 sq M.predicted among non-blacks MDRD (S/P/Bld) [Vol rate/Area] 92 mL/min/{1.73_m2} >60 [facility] Comment on above: mL/min/1.73m2 CKD-EP I Creatinine Equation (2020) Hematocrit Auto (Bld) [Volum e fraction]Ordered By: [facility] on 08-02-2024 Hematocrit (Bld) [Volume fraction] 49.7 % 40-54 [facility] Hemoglobin measurementOrdere d By: [facility] Hawkins on 08-02-2024 Hemoglobin (Bld) [Mass/Vol] 16.8 g/dL High 13.0-16.5 [facility] Immature granulocytes/100 WB C Auto (Bld)Ordered By: Rusty Hawkins on 08-02-2024 Immature granulocytes/100 WBC (Bld) 0.400 % 0.0-0.9 [facility] Comment on above: IG% - Immature Granu locytes (promyelocytes, myelocytes and metamyelocytes) > 1% indicates that a LEFT SHIFT is Present. Ketones Test strip Ql (U)Ord ered By: Rusty Hawkins on 08-02-2024 Ketones Ql (U) Negative Negative [facility] MCV (mean corpuscular volume ) determinationOrdered By: Rusyt Hawkins on 08-02-2024 MCV (RBC) [Entitic vol] 88.1 fL 80-94 [facility] Mean corpuscular hemoglobin (MCH) determinationOrdered By: Rusty Ungtesha on 08-02-2024 MCH (RBC) [Entitic mass] 29.8 pg 27.0-32.0 [facility] Mean corpuscular hemoglobin concentration (MCHC) determinationOrdered By: Rusty Ungtesha on 08-02-2024 MCHC (RBC) [Mass/Vol] 33.8 g/dL 32-36 [facility] Mean platelet volume determi nationOrdered By: Rusty Ungtesha on 08-02-2024 Platelet mean volume (Bld) [Entitic vol] 9.1 fL 6.2-12.0 [facility] Microscopic analysis of urin e for red blood cells (RBC)Ordered By: Rusty Hawkins on 08-02-2024 Microscopic analysis of urine for red blood cells (RBC) 0-5 SEEN /hpf 0-5 [facility] Monocyte percentageOrdered B y: Rusty Hawkins on 08-02-2024 Monocytes/100 WBC (Bld) 8.9 % 0-10 [facility] Mucus LM Ql (Urine sed)Order ed By: Rusty Hawkins on 08-02-2024 Mucus Ql (Urine sed) 0 SEEN /hpf [facility] Neutrophil percentageOrdered By: Rusty Ungtesha on 08-02-2024 Neutrophils/100 WBC (Bld) 70.5 % High 47-70 [facility] Nitrite Test strip Ql (U)Ord ered By: Rusty Ungtesha on 08-02-2024 Nitrite Ql (U) Negative Negative [facility] Nucleated red blood cell per centageOrdered By: Rusty Ungtesha on 08-02-2024 Nucleated RBC/100 WBC (Bld) [Ratio] 0 % 0-5 [facility] Platelet countOrdered By: Karine Hawkins on 08-02-2024 Platelets (Bld) [#/Vol] 263 10*3/uL 150-450 [facility] Potassium measurement (mass/ volume)Ordered By: Rusty Hawkins on 08-02-2024 Potassium (Unsp spec) [Mass/Vol] 4.1 mmol/L 3.3-5.1 [facility] Protein Test strip Ql (U)Ord ered By: Rusty Hawkins on 08-02-2024 Protein Ql (U) 15 mg/dl High Negative [facility] RBC Auto (Bld) [#/Vol]Ordere d By: Rusty Hawkins on 08-02-2024 RBC (Bld) [#/Vol] 5.64 10*6/uL 4.6-6.[address] [facility] Serum creatinine measurement (mass/volume)Ordered By: Rusty Hawkins on 08-02-2024 Creatinine [Mass/Vol] 0.94 mg/dL 0.70-1.20 [facility] Serum glucose measurement (m ass/volume)Ordered By: Rusty Hawkins on 08-02-2024 Glucose [Mass/Vol] 105 mg/dL High 70-99 [facility] Serum or plasma calcium jamila urement (mass/volume)Ordered By: Rusty Hawkins on 08-02-2024 Calcium [Mass/Vol] 10.3 mg/dL 7.6-11.0 [facility] Serum or plasma urea nitroge n measurement (mass/volume)Ordered By: Rusty Hawkins on 08-02-2024 Urea nitrogen [Mass/Vol] 15 mg/dL 4-19 [facility] Sodium levelOrdered By: Daron Hawkins on 08-02-2024 Sodium [Moles/Vol] 138 mmol/L 133-145 [facility] Squamous epithelial cells de tection in urine sediment by light microscopyOrdered By: Rusty Hawkins on 08-02-2024 Epithelial cells.squamous LM Ql (Urine sed) 10-25 SEEN /hpf 0-5 [facility] Urinalysis, Completeon 08-02 EPI,SQUAMOUS 10-25 SEEN Normal 0-5 [facility] Comment on above: Order Comment: CLEAN CATCH Performed By: #### L 400.0001 ####[facility] [address] [place], [address] RBC 0-5 SEEN Normal 0-5 [facility] Comment on above: Order Comment: CLEAN CATCH Performed By: #### L 400.0001 ####[facility] [address] [place], [address] WBC 0-5 SEEN Normal 0-5 [facility] Comment on above: Order Comment: CLEAN CATCH Performed By: #### L 400.0001 ####[facility] [address] [place], [address] BACTERIA 0 SEEN Normal None Seen [facility] Comment on above: Order Comment: CLEAN CATCH Performed By: #### L 400.0001 ####[facility] [address] [place], [address] Mucus Ql (Urine sed) 0 SEEN Normal [facility] Comment on above: Order Comment: CLEAN CATCH Performed By: #### L 400.0001 ####[facility] [address] [place], [place], [address] Urine clarityOrdered By: Coreen Hawkins on 08-02-2024 Clarity (U) Clear Clear [facility] Urine color determinationOrd ered By: Rusty Hawkins on 08-02-2024 Color (U) Yellow Yellow [facility] Urine glucose detectionOrder ed By: Rusty Hawkins on 08-02-2024 Glucose Ql (U) Normal mg/dl Normal [facility] Urine leukocyte esterase det ection by dipstickOrdered By: Rusty Hawkins on 08-02-2024 Leukocyte esterase Test strip Ql (U) 25 /ul High Negative [facility] Urine pHOrdered By: Rusty Esteves gur on 08-02-2024 pH (U) 6.0 [pH] 5.0 - 8.0 [facility] Urine sediment bacteria coun t by microscopy (number/high power field)Ordered By: Rusty Hawkins on 08-02-2024 Bacteria LM.HPF (Urine sed) [#/Area] 0 /[HPF] None Seen [facility] Urine specific gravity measu rementOrdered By: Rusty Hawkins on 08-02-2024 Specific gravity (U) [Rel density] 1.015 1.002-1.030 [facility] Urine urobilinogen measureme ntOrdered By: Rusty Hawkins on 08-02-2024 Urobilinogen Ql (U) Normal mg/dl Normal [facility] White blood cell (WBC) count Ordered By: Rusty Hawkins on 08-02-2024 WBC (Bld) [#/Vol] 10.8 10*3/uL 4.4-11.[address] [facility] White blood cell countOrdere d By: Rusty Hawkins on 08-02-2024 White blood cell count 0-5 SEEN /hpf 0-5 [facility] Endocrinology Visit Reporton 07-17-2024 Endocrinology Visit Report [facility] [address] [place] [address]. [address] [place] [address] OFFICE VISIT Date of Service: 07/17/24 MR#: [id number] Acct: [id number] Name: CORRIE QUEEN Rep #: [id number] : 1960 Provider: Linette Baron Age/Sex: 63/M Location: [facility] Status: Signed Intake Vital Signs 03/31/24 10:21 [...] itchy eyes (more content not included)... Normal [facility] Urine Cultureon 06-02-2024 URC Pending Streptococcus viridans group Pella Count 50,000-80,000 Streptococcus viridans group: REACTION Ampicillin Islt JADE <=0.25 Penicillin G Islt JADE <=0.06 S Cefotaxime Islt JADE <=0.12 S cefTRIAXone Islt JADE <=0.12 S Linezolid Islt JADE <=2 S Vancomycin Islt JADE 0.5 S Normal [facility] Comment on above: Performed By: #### M 100.1962 ####[facility] [address] [place], [place], [address] Laboratory - Chemistry and C hemistry - challengeOrdered By: Stanislaw Alejandra on 05-28-2024 Bilirubin Ql (U) Negative [facility] Glucose Ql (U) Negative [facility] Ketones Ql (U) Trace (5) [facility] pH (U) 5.0 [pH] [facility] Specific gravity (U) [Rel density] 1.015 [facility] Urobilinogen (U) [Mass/Vol] 0.8875604 mg/dL [facility] Laboratory - Hematology and Cell countsOrdered By: Stanislaw Alejandra on 05-28-2024 Hemoglobin Ql (U) Negative [facility] Laboratory - Specimen inform ationOrdered By: Stanislaw Alejandra on 05-28-2024 Clarity (U) Clear [facility] Color (U) DARK YELLOW [facility] Laboratory - UrinalysisOrder ed By: Stanislaw Alejandra on 05-28-2024 Nitrite Ql (U) Negative [facility] Protein Ql (U) Negative [facility] No Panel InformationOrdered By: Stanislaw Alejandra on 05-28-2024 Urine Leukocytes Negatve [facility] Urine Non-Hemolyzed Blood Negative [facility] Urgent Care Visit Reporton 0 05-28-2024 Urgent Care Visit Report [facility] [address], [address] [place] [address] OFFICE VISIT Date of Service: 05/28/24 MR#: [id number] Acct: [id number] Name: CORRIE QUEEN Rep #: [id number] : 1960 Provider: EDMUND Arita Age/Sex: 63/M Location: [facility] Status: Signed Intake [...] has been going on a few weeks. [facility] Medical History Sebaceous cyst of scrotum [...] MA on 05/28/24 13:02 Off Ur Spec [place] 1.015 Last Edit by Mary Alberto MA [...] Urine Tod (more content not included)... Normal [facility] Urine cultureOrdered By: [place] Alejandra on 05-28-2024 Bacteria identified Cx Nom (U) Streptococcus viridans group Abnormal [facility] TFTESTon 04-25-2024 Free Testost Direct 5.5 pg/mL Low 6.6-18.1 [facility] Comment on above: Result Comment: Perf ormed At: [address] [id number] Willi Adams MD Ph:[phone] Performed At: [address] [id number] Pau Carranza PhD Ph:[phone] Performed By: #### C AUR #### [place] [address] #### CRUR #### [address] [address] Testosterone Lvl 360 ng/dL Normal 264-916 [facility] Comment on above: Result Comment: Adul t male reference interval is based on a population of healthy nonobese males (BMI <30) between 19 and 39 years old. erica Joseph.al. JCEM 2017,102;3011-7091. PMID: [id number]. Performed By: #### C AUR #### [place] [address] #### CRUR #### [address] [address] Yamileth 04-22-2024 TSI 23.80 IU/L High 0.00-0.55 [facility] Comment on above: Result Comment: Perf ormed At: [address] [id number] Willi Adams MD Ph:[phone] Performed By: #### C AUR #### [place] [address] #### CRUR #### [address] [address] .Auto Diffon 04-20-2024 Basophil, Absolute 0.1 10 3/mcL Normal 0.0-0.2 [facility] Comment on above: Performed By: #### V IDH, ANEU, LIPID, [id number], FT3, FT4, GFR, ADIFF, [id number], CAION, TSH, CBC, CMP #### [place] [address] #### PROL, PTH #### [address] [address] Basophils/100 WBC (Bld) 1.0 % Normal 0.0-2.5 [facility] Comment on above: Performed By: #### V IDH, ANEU, LIPID, [id number], FT3, FT4, GFR, ADIFF, [id number], CAION, TSH, CBC, CMP #### [place] [address] #### PROL, PTH #### [address] [address] Eosinophil, Absolute 0.3 10 3/mcL Normal 0.0-0.7 [facility] Comment on above: Performed By: #### V IDH, ANEU, LIPID, [id number], FT3, FT4, GFR, ADIFF, [id number], CAION, TSH, CBC, CMP #### [place] [address] #### PROL, PTH #### [address] [address] Eosinophils/100 WBC (Bld) 4.3 % Normal 0.0-7.0 [facility] Comment on above: Performed By: #### V IDH, ANEU, LIPID, [id number], FT3, FT4, GFR, ADIFF, [id number], CAION, TSH, CBC, CMP #### [address] [address] #### PROL, PTH #### [address] [address] Lymphocyte, Absolute 2.1 10 3/mcL Normal 0.9-4.3 [facility] Comment on above: Performed By: #### V IDH, ANEU, LIPID, [id number], FT3, FT4, GFR, ADIFF, [id number], CAION, TSH, CBC, CMP #### [address] [address] #### PROL, PTH #### [address] [address] Lymphocytes/100 WBC (Bld) 28.0 % Normal 20.0-40.0 [facility] Comment on above: Performed By: #### V IDH, ANEU, LIPID, [id number], FT3, FT4, GFR, ADIFF, [id number], CAION, TSH, CBC, CMP #### [address] [address] #### PROL, PTH #### [place] [id number] Monocyte, Absolute 0.8 10 3/mcL Normal 0.1-1.4 [facility] Comment on above: Performed By: #### V IDH, ANEU, LIPID, [id number], FT3, FT4, GFR, ADIFF, [id number], CAION, TSH, CBC, CMP #### [place] [address] #### PROL, PTH #### [place] [address] Monocytes/100 WBC (Bld) 10.4 % Normal 2.0-13.0 [facility] Comment on above: Performed By: #### V IDH, ANEU, LIPID, [id number], FT3, FT4, GFR, ADIFF, [id number], CAION, TSH, CBC, CMP #### [place] [address] #### PROL, PTH #### [place] [id number] Neutrophils/100 WBC (Bld) 56.3 % Normal 50.0-75.0 [facility] Comment on above: Performed By: #### V IDH, ANEU, LIPID, [id number], FT3, FT4, GFR, ADIFF, [id number], CAION, TSH, CBC, CMP #### [place] [address] #### PROL, PTH #### [address] [address] .GFRon 04-20-2024 Estimated Glomerular Filtration Rate 70 ml/min/1.73sqm Normal [facility] Comment on above: Result Comment: Stages of [...] Performed By: #### V IDH, ANEU, LIPID, [id number], FT3, FT4, GFR, ADIFF, [id number], CAION, TSH, CBC, CMP #### [place] [address] #### PROL, PTH #### [place] [address] .NEUABSon 04-20-2024 Neutrophil, Absolute 4.2 10 3/mcL Normal 2.3-8.1 [facility] Comment on above: Performed By: #### V IDH, ANEU, LIPID, [id number], FT3, FT4, GFR, ADIFF, [id number], CAION, TSH, CBC, CMP #### [place] [id number] #### PROL, PTH #### [place] [address] CAIONon 04-20-2024 Calcium Ionized 1.25 mmol/L Normal 1.12-1.32 [facility] Comment on above: Performed By: #### V IDH, ANEU, LIPID, [id number], FT3, FT4, GFR, ADIFF, [id number], CAION, TSH, CBC, CMP #### [place] [address] #### PROL, PTH #### [place] [address] CAURon 04-20-2024 Calcium [Mass/Vol] 12.0 mg/dL Normal [facility] Comment on above: Performed By: #### C AUR #### [place] [address] #### CRUR #### [place] [address] CBCon 04-20-2024 Erythrocyte distribution width (RBC) [Ratio] 14.8 % Normal 11.5-15.5 [facility] Comment on above: Performed By: #### V IDH, ANEU, LIPID, [id number], FT3, FT4, GFR, ADIFF, [id number], CAION, TSH, CBC, CMP #### [address] [address] #### PROL, PTH #### [place] [address] Hematocrit (Bld) [Volume fraction] 50.6 % Normal 40.0-52.0 [facility] Comment on above: Performed By: #### V IDH, ANEU, LIPID, [id number], FT3, FT4, GFR, ADIFF, [id number], CAION, TSH, CBC, CMP #### [place] [address] #### PROL, PTH #### [place] [address] Hgb 17.3 G/dL Normal 13.0-17.5 [facility] Comment on above: Performed By: #### V IDH, ANEU, LIPID, [id number], FT3, FT4, GFR, ADIFF, [id number], CAION, TSH, CBC, CMP #### [place] [address] #### PROL, PTH #### [place] [address] MCH (RBC) [Entitic mass] 30.1 pg Normal 27.0-33.0 [facility] Comment on above: Performed By: #### V IDH, ANEU, LIPID, [id number], FT3, FT4, GFR, ADIFF, [id number], CAION, TSH, CBC, CMP #### [place] [address] #### PROL, PTH #### [address] [address] MCHC 34.2 G/dL Normal 32.0-36.0 [facility] Comment on above: Performed By: #### V IDH, ANEU, LIPID, [id number], FT3, FT4, GFR, ADIFF, [id number], CAION, TSH, CBC, CMP #### [address] [address] #### PROL, PTH #### [place] [address] MCV (RBC) [Entitic vol] 88.0 fL Normal 81.0-100.0 [facility] Comment on above: Performed By: #### V IDH, ANEU, LIPID, [id number], FT3, FT4, GFR, ADIFF, [id number], CAION, TSH, CBC, CMP #### [address] [address] #### PROL, PTH #### [place] [address] Platelet 289 10 3/mcL Normal 150-450 [facility] Comment on above: Performed By: #### V IDH, ANEU, LIPID, [id number], FT3, FT4, GFR, ADIFF, [id number], CAION, TSH, CBC, CMP #### [address] [address] #### PROL, PTH #### [place] [address] Platelet mean volume (Bld) [Entitic vol] 7.4 fL Normal 6.4-10.5 [facility] Comment on above: Performed By: #### V IDH, ANEU, LIPID, [id number], FT3, FT4, GFR, ADIFF, [id number], CAION, TSH, CBC, CMP #### [address] [address] #### PROL, PTH #### [place] [address] RBC 5.75 10 6/mcL Normal 4.50-6.00 [facility] Comment on above: Performed By: #### V IDH, ANEU, LIPID, [id number], FT3, FT4, GFR, ADIFF, [id number], CAION, TSH, CBC, CMP #### [address] [address] #### PROL, PTH #### [address] [address] WBC 7.4 10 3/mcL Normal 4.5-10.8 [facility] Comment on above: Performed By: #### V IDH, ANEU, LIPID, [id number], FT3, FT4, GFR, ADIFF, [id number], CAION, TSH, CBC, CMP #### [address] [address] #### PROL, PTH #### [place] [address] CMPon 04-20-2024 Albumin Level 4.2 G/dL Normal 3.4-4.8 [facility] Comment on above: Performed By: #### V IDH, ANEU, LIPID, [id number], FT3, FT4, GFR, ADIFF, [id number], CAION, TSH, CBC, CMP #### [address] [address] #### PROL, PTH #### [address] [address] Albumin/Globulin [Mass ratio] 1.1 {ratio} Normal 1.1-2.5 [facility] Comment on above: Performed By: #### V IDH, ANEU, LIPID, [id number], FT3, FT4, GFR, ADIFF, [id number], CAION, TSH, CBC, CMP #### [address] [address] #### PROL, PTH #### [address] [address] ALP [Catalytic activity/Vol] 75 U/L Normal 40-135 [facility] Comment on above: Performed By: #### V IDH, ANEU, LIPID, [id number], FT3, FT4, GFR, ADIFF, [id number], CAION, TSH, CBC, CMP #### [address] [address] #### PROL, PTH #### [address] [address] ALT [Catalytic activity/Vol] 27 U/L Normal 16-63 [facility] Comment on above: Performed By: #### V IDH, ANEU, LIPID, [id number], FT3, FT4, GFR, ADIFF, [id number], CAION, TSH, CBC, CMP #### [address] [address] #### PROL, PTH #### [place] [address] AST [Catalytic activity/Vol] 15 U/L Normal 10-40 [facility] Comment on above: Performed By: #### V IDH, ANEU, LIPID, [id number], FT3, FT4, GFR, ADIFF, [id number], CAION, TSH, CBC, CMP #### [place] [address] #### PROL, PTH #### [address] [address] Bili Total 0.7 mg/dL Normal 0.2-1.0 [facility] Comment on above: Result Comment: Use of this assay is not recommended for patients undergoing treatment with eltrombopag due to the potential for falsely elevated results. Performed By: #### V IDH, ANEU, LIPID, [id number], FT3, FT4, GFR, ADIFF, [id number], CAION, TSH, CBC, CMP #### [address] [address] #### PROL, PTH #### [place] [id number] BUN/Creatinine Ratio 15 ratio Normal 7-27 [facility] Comment on above: Performed By: #### V IDH, ANEU, LIPID, [id number], FT3, FT4, GFR, ADIFF, 727554, CAION, TSH, CBC, CMP #### [place] [address] #### PROL, PTH #### [address] [address] Calcium [Mass/Vol] 10.4 mg/dL High 8.4-10.2 [facility] Comment on above: Performed By: #### V IDH, ANEU, LIPID, [id number], FT3, FT4, GFR, ADIFF, 959862, CAION, TSH, CBC, CMP #### [place] [address] #### PROL, PTH #### [address] [address] Chloride [Moles/Vol] 101 mmol/L Normal 98-107 [facility] Comment on above: Performed By: #### V IDH, ANEU, LIPID, [id number], FT3, FT4, GFR, ADIFF, 406283, CAION, TSH, CBC, CMP #### [place] [address] #### PROL, PTH #### [address] [address] CO2 [Moles/Vol] 28 mmol/L Normal 23-31 [facility] Comment on above: Performed By: #### V IDH, ANEU, LIPID, [id number], FT3, FT4, GFR, ADIFF, [id number], CAION, TSH, CBC, CMP #### [place] [address] #### PROL, PTH #### [place] [address] Creatinine [Mass/Vol] 1.17 mg/dL Normal 0.70-1.[address] [facility] Comment on above: Result Comment: Test ing performed on Siemens Dimension EXL analyzer using a modified kinetic Jody technique. Performed By: #### V IDH, ANEU, LIPID, [id number], FT3, FT4, GFR, ADIFF, [id number], CAION, TSH, CBC, CMP #### [place] [address] #### PROL, PTH #### [address] [address] Electrolyte Balance 7.0 mEq/L Normal 4.0-15.0 [facility] Comment on above: Performed By: #### V IDH, ANEU, LIPID, [id number], FT3, FT4, GFR, ADIFF, 613446, CAION, TSH, CBC, CMP #### [address] [address] #### PROL, PTH #### [place] [address] Globulin 3.7 G/dL Normal 1.5-3.8 [facility] Comment on above: Performed By: #### V IDH, ANEU, LIPID, [id number], FT3, FT4, GFR, ADIFF, [id number], CAION, TSH, CBC, CMP #### [address] [address] #### PROL, PTH #### [place] [address] Glucose [Mass/Vol] 108 mg/dL Normal 80-115 [facility] Comment on above: Performed By: #### V IDH, ANEU, LIPID, [id number], FT3, FT4, GFR, ADIFF, 173654, CAION, TSH, CBC, CMP #### [address] [address] #### PROL, PTH #### [place] [address] Potassium [Moles/Vol] 4.2 mmol/L Normal 3.5-5.[address] [facility] Comment on above: Performed By: #### V IDH, ANEU, LIPID, [id number], FT3, FT4, GFR, ADIFF, 434903, CAION, TSH, CBC, CMP #### [address] [address] #### PROL, PTH #### [place] [address] Sodium [Moles/Vol] 136 mmol/L Normal 136-145 [facility] Comment on above: Performed By: #### V IDH, ANEU, LIPID, [id number], FT3, FT4, GFR, ADIFF, 881646, CAION, TSH, CBC, CMP #### [address] [address] #### PROL, PTH #### [address] [address] Total Protein 7.9 G/dL Normal 6.4-8.2 [facility] Comment on above: Performed By: #### V IDH, ANEU, LIPID, [id number], FT3, FT4, GFR, ADIFF, 826691, CAION, TSH, CBC, CMP #### [address] [address] #### PROL, PTH #### [place] [address] Urea nitrogen [Mass/Vol] 17 mg/dL Normal 7-18 [facility] Comment on above: Performed By: #### V IDH, ANEU, LIPID, [id number], FT3, FT4, GFR, ADIFF, 276292, CAION, TSH, CBC, CMP #### [address] [address] #### PROL, PTH #### [place] [address] CRURon 04-20-2024 U Creatinine 109.0 mg/dL Normal [facility] Comment on above: Performed By: #### C AUR #### [place] [address] #### CRUR #### [address] [address] FT3on 04-20-2024 Free T3 [Mass/Vol] 2.88 pg/mL Normal 2.30-4.00 [facility] Comment on above: Performed By: #### C AUR #### [place] [address] #### CRUR #### [place] [address] FT4on 04-20-2024 Free T4 [Mass/Vol] 0.91 ng/dL Normal 0.76-1.46 [facility] Comment on above: Performed By: #### V IDH, ANEU, LIPID, [id number], FT3, FT4, GFR, ADIFF, 856690, CAION, TSH, CBC, CMP #### [facility] [address] [place], [place] [address] #### PROL, PTH #### [address] [address] LABORATORYOrdered By: Carola Ceja on 04-20-2024 Calcium [...] 04-20-2024 Cholesterol [Mass/Vol] 159 mg/dL Normal 0-200 [facility] Comment on above: Result Comment: Chol esterol Reference Interval: Less than 200 Desirable 200-239 Borderline high risk 240 and above High risk Performed By: #### C AUR #### [place] [address] #### CRUR #### [address] [address] Cholesterol in HDL [Mass/Vol] 36 mg/dL Low 40-60 [facility] Comment on above: Performed By: #### C AUR #### [place] [address] #### CRUR #### [address] [address] Cholesterol in LDL [Mass/Vol] 89 mg/dL Normal 0-130 [facility] Comment on above: Performed By: #### C AUR #### [place] [address] #### CRUR #### [address] [address] Triglyceride [Mass/Vol] 169 mg/dL High 0-150 [facility] Comment on above: Result Comment: Trig lyceride Reference Interval: Less than 150 Normal 150-199 Borderline high risk 200-499 High risk 500 or higher Very high risk Performed By: #### C AUR #### [place] [address] #### CRUR #### [place] [address] PROLon 04-20-2024 Prolactin 15.0 ng/mL Normal 2.0-18.0 [facility] Comment on above: Performed By: #### C AUR #### [place] [address] #### CRUR #### [place] [address] PTHon 04-20-2024 PTH, Intact 44.8 pg/mL Normal 18.5-88.0 [facility] Comment on above: Performed By: #### C AUR #### [place] [address] #### CRUR #### [place] [address] TSHon 04-20-2024 TSH Qn 0.38 m[IU]/L Normal 0.36-3.74 [facility] Comment on above: Performed By: #### V IDH, ANEU, LIPID, [id number], FT3, FT4, GFR, ADIFF, 485658, CAION, TSH, CBC, CMP #### [address] [address] #### PROL, PTH #### [place] [address] VIDHon 04-20-2024 Vit. D 25-Hydroxy 31.3 ng/mL Normal [facility] Comment on above: Result Comment: Inte rpretive Values Based on Total 25(OH) Vitamin D: Deficient <20 ng/mL Insufficient 20 - <30 ng/mL Sufficient 30-100 ng/mL Performed By: #### C AUR #### [facility] [address] [place] [address] #### CRTESHA #### [facility] [address] [place], [place] [address] Abd Aortic/IVC Duplex scanon 04-13-2024 Abd Aortic/IVC Duplex scan [facility] [address] [place] [address] Abd Aortic/IVC Duplex scan 04/13/24 0946 MR#: [id number] Acct: [id number] Name: CORRIE QUEEN Rep #: [id number] : 1960 63 From: Ryan Ceja MD [...] Aorta IVC Iliac vasculature or bypass grafts [address]. The exam was diagnostic. Exam performed in [...] Date Dictated: 04/13/2446 Date Transcribed: 04/13/24 1252 Health Care Law Specialist: Signed Normal [facility] Venous Duplex US, Unilateral on 04-13-2024 Venous Duplex US, Unilateral [facility] [address] 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 Normal [facility] MR/BMS.BVSon 03-18-2024 MR/BMS.BVS [facility] [address] [place] [address] OFFICE VISIT Date of Service: 03/18/24 MR#: [id number] Acct: [id number] Name: CORRIE QUEEN Rep #: [id number] : 1960 Provider: EDMUND Jovel Age/Sex: 63/M Location: [facility] [place] [place] Status: Signed Intake Vital Signs 02/25/24 [...] underwent attempted percutaneous thrombectomy and stenting at [facility] which was not successful. He then presented [...] having stasis (more content not included)... Normal [facility] Urgent Care Visit Reporton 1 Urgent Care Visit Report [facility] [address] [place] [address] OFFICE VISIT Date of Service: 02/25/24 MR#: [id number] Acct: [id number] Name: CORRIE QUEEN Rep #: [id number] : 1960 Provider: EDMUND Miguel Age/Sex: 63/M Location: [facility] [place] Status: Signed Intake [...] of having one on the right side. [facility] Medical History (Updated 02/25/24 @ 11:13 [...] fever, chills, sweats, lightheadedness/dizzi ness, nausea/vomiting. No pzky-cnv-jtekhmy products taken to assist. No other associated symptoms and no other alleviating or aggravating factors. ROS Const Constitutional: No other (As above) Exam Const General: cooperative, healthy appearing and no acute distress Orientation: alert and awake [facility] Head: normal to inspection Ears: hearing grossly [...] Procedure pe (more content not included)... Normal [facility] TFTESTon 01-09-2024 Free Testost Direct 1.5 pg/mL Low 6.6-18.1 [facility] Comment on above: Result Comment: Perf ormed At: [facility] [address] [id number] Willi Adams MD Ph:[phone] Performed At: [facility] [address] [id number] Pau Carranza PhD Ph:[phone] Performed By: #### V IDH, ANEU, LIPID, [id number], FT3, FT4, GFR, ADIFF, [id number], CAION, TSH, CBC, CMP #### [place] [address] #### PROL, PTH #### [address] [address] Testosterone Lvl 111 ng/dL Low 264-916 [facility] Comment on above: Result Comment: Adul t male reference interval is based on a population of healthy nonobese males (BMI <30) between 19 and 39 years old. Jake et.al. JCEM 2017,102;9711-7628. PMID: [id number]. Performed By: #### V IDH, ANEU, LIPID, [id number], FT3, FT4, GFR, ADIFF, 347944, CAION, TSH, CBC, CMP #### [place] [address] #### PROL, PTH #### [address] [address] .Auto Diffon 01-03-2024 Basophil, Absolute 0.1 10 3/mcL Normal 0.0-0.2 [facility] Comment on above: Performed By: #### V IDH, ANEU, LIPID, [id number], FT3, FT4, GFR, ADIFF, 545842, CAION, TSH, CBC, CMP #### [address] [address] #### PROL, PTH #### [address] [address] Basophils/100 WBC (Bld) 1.0 % Normal 0.0-2.5 [facility] Comment on above: Performed By: #### V IDH, ANEU, LIPID, [id number], FT3, FT4, GFR, ADIFF, 554863, CAION, TSH, CBC, CMP #### [address] [address] #### PROL, PTH #### [address] [address] Eosinophil, Absolute 0.2 10 3/mcL Normal 0.0-0.7 [facility] Comment on above: Performed By: #### V IDH, ANEU, LIPID, [id number], FT3, FT4, GFR, ADIFF, 754286, CAION, TSH, CBC, CMP #### [address] [address] #### PROL, PTH #### [address] [address] Eosinophils/100 WBC (Bld) 2.6 % Normal 0.0-7.0 [facility] Comment on above: Performed By: #### V IDH, ANEU, LIPID, [id number], FT3, FT4, GFR, ADIFF, [id number], CAION, TSH, CBC, CMP #### [address] [address] #### PROL, PTH #### [address] [address] Lymphocyte, Absolute 1.6 10 3/mcL Normal 0.9-4.3 [facility] Comment on above: Performed By: #### V IDH, ANEU, LIPID, [id number], FT3, FT4, GFR, ADIFF, 823029, CAION, TSH, CBC, CMP #### [address] [address] #### PROL, PTH #### [address] [address] Lymphocytes/100 WBC (Bld) 21.6 % Normal 20.0-40.0 [facility] Comment on above: Performed By: #### V IDH, ANEU, LIPID, [id number], FT3, FT4, GFR, ADIFF, 916658, CAION, TSH, CBC, CMP #### [address] [address] #### PROL, PTH #### [address] [address] Monocyte, Absolute 0.5 10 3/mcL Normal 0.1-1.4 [facility] Comment on above: Performed By: #### V IDH, ANEU, LIPID, [id number], FT3, FT4, GFR, ADIFF, 971104, CAION, TSH, CBC, CMP #### [address] [address] #### PROL, PTH #### [address] [address] Monocytes/100 WBC (Bld) 7.3 % Normal 2.0-13.0 [facility] Comment on above: Performed By: #### V IDH, ANEU, LIPID, [id number], FT3, FT4, GFR, ADIFF, 223014, CAION, TSH, CBC, CMP #### [address] [address] #### PROL, PTH #### [address] [address] Neutrophils/100 WBC (Bld) 67.5 % Normal 50.0-75.0 [facility] Comment on above: Performed By: #### V IDH, ANEU, LIPID, [id number], FT3, FT4, GFR, ADIFF, 351965, CAION, TSH, CBC, CMP #### [address] [address] #### PROL, PTH #### [address] [address] .GFRon 01-03-2024 GFR 83 ml/min/1.73sqm Normal [facility] Comment on above: Result Comment: GFR [...] Performed By: #### V IDH, ANEU, LIPID, [id number], FT3, FT4, GFR, ADIFF, 555041, CAION, TSH, CBC, CMP #### [address] [address] #### PROL, PTH #### [address] [address] GFR Non- 69 ml/min/1.73sqm Normal [facility] Comment on above: Result Comment: GFR [...] Performed By: #### V IDH, ANEU, LIPID, [id number], FT3, FT4, GFR, ADIFF, [id number], CAION, TSH, CBC, CMP #### [address] [address] #### PROL, PTH #### [address] [address] .NEUABSon 01-03-2024 Neutrophil, Absolute 4.9 10 3/mcL Normal 2.3-8.1 [facility] Comment on above: Performed By: #### V IDH, ANEU, LIPID, [id number], FT3, FT4, GFR, ADIFF, [id number], CAION, TSH, CBC, CMP #### [place] [address] #### PROL, PTH #### [address] [address] A1Con 01-03-2024 Glucose [Mass/Vol] 111 mg/dL Normal [facility] Comment on above: Result Comment: Ruthann mated Average Glucose calculated by equation ((28.7xA1C)-46.7) Estimated average glucose (eAG) is a calculated value from Hemoglobin A1C and 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 insurance of the average blood glucose level in the last 2-3 month period. Normal range: less than 114 mg/dL Performed By: #### V IDH, ANEU, LIPID, [id number], FT3, FT4, GFR, ADIFF, [id number], CAION, TSH, CBC, CMP #### [place] [address] #### PROL, PTH #### [place] [address] HbA1c (Bld) [Mass fraction] 5.5 % Normal 4.3-6.4 [facility] Comment on above: Performed By: #### V IDH, ANEU, LIPID, [id number], FT3, FT4, GFR, ADIFF, [id number], CAION, TSH, CBC, CMP #### [place] [address] #### PROL, PTH #### [place] [address] CAIONon 01-03-2024 Calcium Ionized 1.29 mmol/L Normal 1.12-1.32 [facility] Comment on above: Performed By: #### C AUR #### [place] [address] #### CRUR #### [address] [address] CAURon 01-03-2024 Calcium [Mass/Vol] 14.0 mg/dL Normal [facility] Comment on above: Performed By: #### C AUR #### [place] [address] #### CRUR #### [address] [address] CBCon 01-03-2024 Erythrocyte distribution width (RBC) [Ratio] 15.2 % Normal 11.5-15.5 [facility] Comment on above: Performed By: #### V IDH, ANEU, LIPID, [id number], FT3, FT4, GFR, ADIFF, [id number], CAION, TSH, CBC, CMP #### [address] [address] #### PROL, PTH #### [place] [address] Hematocrit (Bld) [Volume fraction] 49.8 % Normal 40.0-52.0 [facility] Comment on above: Performed By: #### V IDH, ANEU, LIPID, [id number], FT3, FT4, GFR, ADIFF, [id number], CAION, TSH, CBC, CMP #### [address] [address] #### PROL, PTH #### [place] [address] Hgb 16.6 G/dL Normal 13.0-17.5 [facility] Comment on above: Performed By: #### V IDH, ANEU, LIPID, [id number], FT3, FT4, GFR, ADIFF, [id number], CAION, TSH, CBC, CMP #### [address] [address] #### PROL, PTH #### [place] [address] MCH (RBC) [Entitic mass] 29.8 pg Normal 27.0-33.0 [facility] Comment on above: Performed By: #### V IDH, ANEU, LIPID, [id number], FT3, FT4, GFR, ADIFF, [id number], CAION, TSH, CBC, CMP #### [place] [address] #### PROL, PTH #### [place] [address] MCHC 33.3 G/dL Normal 32.0-36.0 [facility] Comment on above: Performed By: #### V IDH, ANEU, LIPID, [id number], FT3, FT4, GFR, ADIFF, [id number], CAION, TSH, CBC, CMP #### [place] [address] #### PROL, PTH #### [place] [address] MCV (RBC) [Entitic vol] 89.3 fL Normal 81.0-100.0 [facility] Comment on above: Performed By: #### V IDH, ANEU, LIPID, [id number], FT3, FT4, GFR, ADIFF, [id number], CAION, TSH, CBC, CMP #### [place] [address] #### PROL, PTH #### [place] [address] Platelet 284 10 3/mcL Normal 150-450 [facility] Comment on above: Performed By: #### V IDH, ANEU, LIPID, [id number], FT3, FT4, GFR, ADIFF, [id number], CAION, TSH, CBC, CMP #### [place] [address] #### PROL, PTH #### [place] [address] Platelet mean volume (Bld) [Entitic vol] 7.3 fL Normal 6.4-10.5 [facility] Comment on above: Performed By: #### V IDH, ANEU, LIPID, [id number], FT3, FT4, GFR, ADIFF, [id number], CAION, TSH, CBC, CMP #### [place] [address] #### PROL, PTH #### [place] [address] RBC 5.58 10 6/mcL Normal 4.50-6.00 [facility] Comment on above: Performed By: #### V IDH, ANEU, LIPID, [id number], FT3, FT4, GFR, ADIFF, [id number], CAION, TSH, CBC, CMP #### [address] [address] #### PROL, PTH #### [place] [address] WBC 7.3 10 3/mcL Normal 4.5-10.8 [facility] Comment on above: Performed By: #### V IDH, ANEU, LIPID, [id number], FT3, FT4, GFR, ADIFF, [id number], CAION, TSH, CBC, CMP #### [place] [address] #### PROL, PTH #### [place] [address] CMPon 01-03-2024 Albumin Level 4.2 G/dL Normal 3.4-4.8 [facility] Comment on above: Performed By: #### V IDH, ANEU, LIPID, [id number], FT3, FT4, GFR, ADIFF, [id number], CAION, TSH, CBC, CMP #### [address] [address] #### PROL, PTH #### [place] [address] Albumin/Globulin [Mass ratio] 1.2 {ratio} Normal 1.1-2.5 [facility] Comment on above: Performed By: #### V IDH, ANEU, LIPID, [id number], FT3, FT4, GFR, ADIFF, [id number], CAION, TSH, CBC, CMP #### [address] [address] #### PROL, PTH #### [place] [address] ALP [Catalytic activity/Vol] 103 U/L Normal 40-135 [facility] Comment on above: Performed By: #### V IDH, ANEU, LIPID, [id number], FT3, FT4, GFR, ADIFF, [id number], CAION, TSH, CBC, CMP #### [address] [address] #### PROL, PTH #### [address] [address] ALT [Catalytic activity/Vol] 39 U/L Normal 16-63 [facility] Comment on above: Performed By: #### V IDH, ANEU, LIPID, [id number], FT3, FT4, GFR, ADIFF, [id number], CAION, TSH, CBC, CMP #### [address] [address] #### PROL, PTH #### [place] [address] AST [Catalytic activity/Vol] 23 U/L Normal 10-40 [facility] Comment on above: Performed By: #### V IDH, ANEU, LIPID, [id number], FT3, FT4, GFR, ADIFF, [id number], CAION, TSH, CBC, CMP #### [address] [address] #### PROL, PTH #### [place] [address] Bili Total 0.6 mg/dL Normal 0.2-1.0 [facility] Comment on above: Result Comment: Use of this assay is not recommended for patients undergoing treatment with eltrombopag due to the potential for falsely elevated results. Performed By: #### V IDH, ANEU, LIPID, [id number], FT3, FT4, GFR, ADIFF, [id number], CAION, TSH, CBC, CMP #### [address] [address] #### PROL, PTH #### [place] [address] BUN/Creatinine Ratio 12 ratio Normal 7-27 [facility] Comment on above: Performed By: #### V IDH, ANEU, LIPID, [id number], FT3, FT4, GFR, ADIFF, [id number], CAION, TSH, CBC, CMP #### [address] [address] #### PROL, PTH #### [address] [address] Calcium [Mass/Vol] 10.4 mg/dL High 8.4-10.2 [facility] Comment on above: Performed By: #### V IDH, ANEU, LIPID, [id number], FT3, FT4, GFR, ADIFF, [id number], CAION, TSH, CBC, CMP #### [address] [address] #### PROL, PTH #### [address] [address] Chloride [Moles/Vol] 105 mmol/L Normal 98-107 [facility] Comment on above: Performed By: #### V IDH, ANEU, LIPID, [id number], FT3, FT4, GFR, ADIFF, [id number], CAION, TSH, CBC, CMP #### [place] [address] #### PROL, PTH #### [address] [address] CO2 [Moles/Vol] 29 mmol/L Normal 23-31 [facility] Comment on above: Performed By: #### V IDH, ANEU, LIPID, [id number], FT3, FT4, GFR, ADIFF, [id number], CAION, TSH, CBC, CMP #### [address] [address] #### PROL, PTH #### [address] [address] Creatinine [Mass/Vol] 1.09 mg/dL Normal 0.70-1.[address] [facility] Comment on above: Result Comment: Test ing performed on [employer] Dimension EXL analyzer using a modified kinetic Jody technique. Performed By: #### V IDH, ANEU, LIPID, [id number], FT3, FT4, GFR, ADIFF, [id number], CAION, TSH, CBC, CMP #### [place] [address] #### PROL, PTH #### [address] [address] Electrolyte Balance 7.0 mEq/L Normal 4.0-15.0 [facility] Comment on above: Performed By: #### V IDH, ANEU, LIPID, [id number], FT3, FT4, GFR, ADIFF, [id number], CAION, TSH, CBC, CMP #### [address] [address] #### PROL, PTH #### [address] [address] Globulin 3.5 G/dL Normal [facility] Comment on above: Performed By: #### V IDH, ANEU, LIPID, [id number], FT3, FT4, GFR, ADIFF, [id number], CAION, TSH, CBC, CMP #### [address] [address] #### PROL, PTH #### [place] [address] Glucose [Mass/Vol] 115 mg/dL Normal 80-115 [facility] Comment on above: Performed By: #### V IDH, ANEU, LIPID, [id number], FT3, FT4, GFR, ADIFF, [id number], CAION, TSH, CBC, CMP #### [address] [address] #### PROL, PTH #### [place] [address] Potassium [Moles/Vol] 4.7 mmol/L Normal 3.5-5.[address] [facility] Comment on above: Performed By: #### V IDH, ANEU, LIPID, [id number], FT3, FT4, GFR, ADIFF, [id number], CAION, TSH, CBC, CMP #### [address] [address] #### PROL, PTH #### [place] [address] Sodium [Moles/Vol] 141 mmol/L Normal 136-145 [facility] Comment on above: Performed By: #### V IDH, ANEU, LIPID, [id number], FT3, FT4, GFR, ADIFF, [id number], CAION, TSH, CBC, CMP #### [address] [address] #### PROL, PTH #### [address] [address] Total Protein 7.7 G/dL Normal 6.4-8.2 [facility] Comment on above: Performed By: #### V IDH, ANEU, LIPID, [id number], FT3, FT4, GFR, ADIFF, [id number], CAION, TSH, CBC, CMP #### [address] [address] #### PROL, PTH #### [address] [address] Urea nitrogen [Mass/Vol] 13 mg/dL Normal 09-11 [facility] Comment on above: Performed By: #### V IDH, ANEU, LIPID, [id number], FT3, FT4, GFR, ADIFF, [id number], CAION, TSH, CBC, CMP #### [address] [address] #### PROL, PTH #### [address] [address] CRURon 01-03-2024 U Creatinine 152.1 mg/dL Normal 39.0-259.0 [facility] Comment on above: Performed By: #### C AUR #### [place] [address] #### CRUR #### [address] [address] E2on 01-03-2024 Estradiol Level 24.43 pg/mL Normal 0.00-39.80 [facility] Comment on above: Result Comment: No te - New Reference Range in effect 19 Adult Female E2 Reference Ranges: Follicular phase 19.5 - 144.2 pg/mL Midcycle 63.9 - 356.7 pg/mL Luteal phase 55.8 - 214.2 pg/mL Post menopausal 0 - 33.2 pg/mL Performed By: #### V IDH, ANEU, LIPID, [id number], FT3, FT4, GFR, ADIFF, [id number], CAION, TSH, CBC, CMP #### [address] [address] #### PROL, PTH #### [place] [address] FT3on 01-03-2024 Free T3 [Mass/Vol] 2.59 pg/mL Normal 2.30-4.00 [facility] Comment on above: Performed By: #### V IDH, ANEU, LIPID, [id number], FT3, FT4, GFR, ADIFF, [id number], CAION, TSH, CBC, CMP #### [place] [address] #### PROL, PTH #### [place] [address] FT4on 01-03-2024 Free T4 [Mass/Vol] 0.91 ng/dL Normal 0.76-1.46 [facility] Comment on above: Performed By: #### V IDH, ANEU, LIPID, [id number], FT3, FT4, GFR, ADIFF, [id number], CAION, TSH, CBC, CMP #### [place] [address] #### PROL, PTH #### [place] [address] LABORATORYOrdered By: Johan Duff on 01-03-2024 Calcium [...] calculated value from Hemoglobin A1C and 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 insurance of the average blood glucose level in [...] ormal Reference Ranges for Females: Female Premenopause Rhc06-207.01-47.94 ng/dL Female Postmenopause Rac72-70<7.00-45.62 ng/dL Thyroglobulin Ab IA Qn 22 unit/mL [...] 01-03-2024 Cholesterol [Mass/Vol] 234 mg/dL High 0-200 [facility] Comment on above: Result Comment: Chol esterol Reference Interval: Less than 200 Desirable 200-239 Borderline high risk 240 and above High risk Performed By: #### V IDH, ANEU, LIPID, [id number], FT3, FT4, GFR, ADIFF, [id number], CAION, TSH, CBC, CMP #### [address] [address] #### PROL, PTH #### [address] [address] Cholesterol in HDL [Mass/Vol] 37 mg/dL Low 40-60 [facility] Comment on above: Performed By: #### V IDH, ANEU, LIPID, [id number], FT3, FT4, GFR, ADIFF, [id number], CAION, TSH, CBC, CMP #### [address] [address] #### PROL, PTH #### [address] [address] Cholesterol in LDL [Mass/Vol] 163 mg/dL High 0-130 [facility] Comment on above: Performed By: #### V IDH, ANEU, LIPID, [id number], FT3, FT4, GFR, ADIFF, [id number], CAION, TSH, CBC, CMP #### [address] [address] #### PROL, PTH #### [place] [address] Triglyceride [Mass/Vol] 169 mg/dL High 0-150 [facility] Comment on above: Result Comment: Trig lyceride Reference Interval: Less than 150 Normal 150-199 Borderline high risk 200-499 High risk 500 or higher Very high risk Performed By: #### V IDH, ANEU, LIPID, [id number], FT3, FT4, GFR, ADIFF, [id number], CAION, TSH, CBC, CMP #### [place] [address] #### PROL, PTH #### [place] [address] MGon 01-03-2024 Magnesium [Mass/Vol] 2.1 mg/dL Normal 1.8-2.4 [facility] Comment on above: Performed By: #### V IDH, ANEU, LIPID, [id number], FT3, FT4, GFR, ADIFF, [id number], CAION, TSH, CBC, CMP #### [place] [address] #### PROL, PTH #### [place] [address] PHOSon 01-03-2024 Phosphate [Mass/Vol] 3.1 mg/dL Normal 2.3-4.1 [facility] Comment on above: Performed By: #### V IDH, ANEU, LIPID, [id number], FT3, FT4, GFR, ADIFF, [id number], CAION, TSH, CBC, CMP #### [place] [address] #### PROL, PTH #### [place] [address] PROLon 01-03-2024 Prolactin 13.6 ng/mL Normal 2.0-18.0 [facility] Comment on above: Performed By: #### V IDH, ANEU, LIPID, [id number], FT3, FT4, GFR, ADIFF, [id number], CAION, TSH, CBC, CMP #### [address] [address] #### PROL, PTH #### [address] [address] PSAon 01-03-2024 Prostate Specific Antigen 0.62 ng/mL Normal 0.00-4.00 [facility] Comment on above: Performed By: #### V IDH, ANEU, LIPID, [id number], FT3, FT4, GFR, ADIFF, [id number], CAION, TSH, CBC, CMP #### [address] [address] #### PROL, PTH #### [address] [address] PTHon 01-03-2024 PTH, Intact 50.7 pg/mL Normal 18.5-88.0 [facility] Comment on above: Performed By: #### V IDH, ANEU, LIPID, [id number], FT3, FT4, GFR, ADIFF, [id number], CAION, TSH, CBC, CMP #### [address] [address] #### PROL, PTH #### [address] [address] TESTOon 01-03-2024 Testosterone Lvl 106.55 ng/dL Normal 86.98-780.1 0 [facility] Comment on above: Result Comment: Norm al Reference Ranges for Females: Female Premenopause Age 21-60 9.01-47.94 ng/dL Female Postmenopause Age 45-89 <7.00-45.62 ng/dL Performed By: #### V IDH, ANEU, LIPID, [id number], FT3, FT4, GFR, ADIFF, [id number], CAION, TSH, CBC, CMP #### [address] [address] #### PROL, PTH #### [address] [address] THYABon 01-03-2024 anti-Thyroid Peroxidase 545 units/ml High 0-60 [facility] Comment on above: Result Comment: No te - New Reference Range in effect 19 Performed By: #### V IDH, ANEU, LIPID, [id number], FT3, FT4, GFR, ADIFF, [id number], CAION, TSH, CBC, CMP #### [place] [address] #### PROL, PTH #### [place] [address] Thyroglobulin Ab 22 units/ml Normal 15-60 [facility] Comment on above: Result Comment: No te - New Reference Range in effect 19 Performed By: #### V IDH, ANEU, LIPID, [id number], FT3, FT4, GFR, ADIFF, [id number], CAION, TSH, CBC, CMP #### [place] [address] #### PROL, PTH #### [place] [address] TSHon 01-03-2024 TSH Qn 0.63 m[IU]/L Normal 0.36-3.74 [facility] Comment on above: Performed By: #### V IDH, ANEU, LIPID, [id number], FT3, FT4, GFR, ADIFF, [id number], CAION, TSH, CBC, CMP #### [place] [address] #### PROL, PTH #### [place] [address] VIDHon 01-03-2024 Vit. D 25-Hydroxy 32.8 ng/mL Normal [facility] Comment on above: Result Comment: Inte rpretive Values Based on Total 25(OH) Vitamin D: Deficient <20 ng/mL Insufficient 20 - <30 ng/mL Sufficient 30-100 ng/mL Performed By: #### V IDH, ANEU, LIPID, [id number], FT3, FT4, GFR, ADIFF, [id number], CAION, TSH, CBC, CMP #### [facility] [address] [place], [place] [address] #### PROL, PTH #### [address] [address] Internal Medicine Office Vis gissell 12-23-2023 Internal Medicine Office Visit [facility] [address] [place] [address] [place] [address] OFFICE VISIT Date of Service: 12/23/23 MR#: [id number] Acct: [id number] Name: CORRIE QUEEN Rep #: [id number] : 1960 Provider: RUBI romano Age/Sex: 63/M Location: [facility] [place] Status: Signed Intake Vital Signs 10/15/23 09:21 [...] LEFT EYE IRRITATION Chief Complaint: back pain Staking Technician Required: No Is patient in pain?: [...] yellow. Denies light sensitivity or visual disturbances. [facility] Medical History Kidney pain Pituitary abnormality [...] at rest, ch (more content not included)... [facility] 11-25-2023 36 Thanks so much hemant! Normal [facility] 36 We received a fax stating that the patients testosterone needs a PA , could you please assist? [facility] 36on 08-01-2023 36 Message released to patient as written. Patient's further questions if applicable: Patient voiced understanding. Stated he will pick his medication up tomorrow. Please have clinical team call patient to schedule to have testosterone levels checked. Were all questions from office addressed or relayed to the patient from encounter: Yes [place] [address] Tried calling elvia molina and left a voice message for call back. Results of recent labs show normal prolactin, thyroid functions-patient is to continue current dose of cabergoline and levothyroxine. Testosterone remains low-I have sent prescription for testosterone gel to his pharmacy. Patient is to have testosterone levels checked 2 months after starting testosterone treatment [facility] Office Visiton 07-31-2023 Follow-up visit [id number] [place] 1960 M Date Provider Department Center 07/31/2023 [id number]-PDPLSWGRUNLYA APPUSW*[facility] None Family History Adopted: Yes Problem Relation Age of Onset No Known Problems Father Cancer Mother Comments: lung Family Status - Relation Status Age at Father Mother Level of Service:83467 NE OFFICE/OUTPATIENT ESTABLISHED MOD MDM 30 MIN Reason for Visit and Comments: Follow-up [097742] - Macroprolactinoma Hypothyroidism [143] Normal [facility] Progress Noteon 07-31-2023 Progress Note [facility] [address] [facility] [address] [facility] [address] Dept: [phone] Dept Loc: [phone] Visit type: Established Reason for Visit: Follow-up [...] Subjective HPI PCP is Silvestre Sexton Previous Gravel Inspector: Dr Sal & Dr Benito Initial [facility] endocrinology office visit: 2013 Last office visit: 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 Monge , but has missed his [...] negative. Al (more content not included)... Normal [facility] 36on 06-19-2023 36 We have been unable to reach your patient to schedule their testing. Test Name: Complete PFT pre and post bronchodilator 1st Attempt: 06/15/2023 mychart message 2nd Attempt: 06/19/2023 LVM. Normal [facility] Basophil percentageOrdered B y: Bull Lopez on 06-10-2023 Chloride [Moles/Vol] 107 mmol/L 98-107 [facility] Glucose [Mass/Vol] 92 mg/dL 74-106 [facility] Potassium [Moles/Vol] 4.1 mmol/L 3.5-5.1 [facility] Sodium [Moles/Vol] 136 mmol/L 136-145 [facility] Laboratory - Chemistry and C hemistry - challengeOrdered By: Bull Lopez on 06-10-2023 CO2 [Moles/Vol] 24.0 mmol/L 21.0-32.0 [facility] Urea nitrogen/Creatinine [Mass ratio] 16.8 mg/mg 10-20 [facility] No Panel InformationOrdered By: Bull Lopez on 06-10-2023 Estimated GFR (MDRD) Amer 80 mL/min >60 [facility] Comment on above: GFR Calc Estimated GFR (MDRD) Non-Af Amer 66 mL/min >60 [facility] Comment on above: Non- GFR Calc Serum or plasma calcium jamila urement (mass/volume)Ordered By: Bull Lopez on 06-10-2023 Calcium [Mass/Vol] 10.3 mg/dL 8.5-10.1 [facility] Serum or plasma creatinine m easurement (mass/volume)Ordered By: Bull Lopez on 06-10-2023 Creatinine [Mass/Vol] 1.19 mg/dL 0.70-1.30 [facility] Comment on above: The validity of the calculated GFR & GFRAA in patients over 70 years has not been determined. Clinical correlation is essential. Serum or plasma urea nitroge n measurement (mass/volume)Ordered By: Bull Lopez on 06-10-2023 Urea nitrogen [Mass/Vol] 20 mg/dL 7-18 [facility] Thin prep Papanicolaou smear with manual screeningOrdered By: Bull Lopez on 06-10-2023 Thin prep Papanicolaou smear with manual screening 5 -15 [facility] Absolute lymphocyte countOrd ered By: Sanjana Gillvaibhav on 06-06-2023 Lymphocytes Auto (Unsp spec) [#/Vol] 0.81 10*3/uL 0.83-4.51 [facility] Automated lymphocyte count a s percentage of total leukocytesOrdered By: Sanjana Gillvaibhav on 06-06-2023 Lymphocytes/100 WBC Auto (Unsp spec) 14.3 % 19-41 [facility] Basophil percentageOrdered B y: Sanjana Hale on 06-06-2023 Basophil percentage 0 SEEN /hpf 0-5 [facility] Basophils/100 WBC (Bld) 0.9 % 0-1 [facility] Bilirubin [Mass/Vol] 0.40 mg/dL 0.20-1.00 [facility] Comment on above: For patients on eltr ombopag therapy, use of Dimension [place] TBIL is not recommended. Chloride [Moles/Vol] 109 mmol/L 98-107 [facility] Eosinophils/100 WBC (Bld) 1.8 % 0-5 [facility] Glucose [Mass/Vol] 95 mg/dL 74-106 [facility] Hemoglobin (Bld) [Mass/Vol] 14.9 g/dL 13.0-16.5 [facility] Monocytes/100 WBC (Bld) 10.6 % 0-10 [facility] Neutrophils (Bld) [#/Vol] 4.1 10*3/uL 2.0-7.7 [facility] Neutrophils/100 WBC (Bld) 71.7 % 47-70 [facility] Potassium [Moles/Vol] 4.3 mmol/L 3.5-5.1 [facility] Protein [Mass/Vol] 8.2 g/dL 6.4-8.2 [facility] Sodium [Moles/Vol] 136 mmol/L 136-145 [facility] WBC (Bld) [#/Vol] 5.7 10*3/uL 4.4-11.0 [facility] Bilirubin Test strip Ql (U)O rdered By: Sanjana Hale on 06-06-2023 Bilirubin Ql (U) Negative Negative [facility] Culture, urineOrdered By: Evelyn Hale on 06-06-2023 Bacteria identified Cx Nom (U) Culture exhibits no growth. [facility] Determination of erythrocyte mean corpuscular volume (MCV)Ordered By: Sanjana Hale on 06-06-2023 MCV (RBC) [Entitic vol] 88.5 fL 80-94 [facility] Erythrocyte distribution wid th ratioOrdered By: Sanjana Hale on 06-06-2023 Erythrocyte distribution width (RBC) [Ratio] 13.5 % 11.6-14.6 [facility] Erythrocyte distribution wid th standard deviationOrdered By: Sanjana Hale on 06-06-2023 Erythrocyte distribution width (RBC) [Entitic vol] 43.7 fL 35.1-43.9 [facility] Hematocrit Auto (Bld) [Volum e fraction]Ordered By: Sanjana Hale on 06-06-2023 Hematocrit (Bld) [Volume fraction] 45.6 % 40-54 [facility] Immature granulocytes/100 WB C Auto (Bld)Ordered By: Sanjana Hale on 06-06-2023 Immature granulocytes/100 WBC (Bld) 0.700 % 0.0-0.9 [facility] Comment on above: IG% - Immature Granu locytes (promyelocytes, myelocytes and metamyelocytes) > 1% indicates that a LEFT SHIFT is Present. Ketones Test strip Ql (U)Ord ered By: Sanjana Hale on 06-06-2023 Ketones Ql (U) Negative Negative [facility] Laboratory - Chemistry and C hemistry - challengeOrdered By: Sanjana Hale on 06-06-2023 Albumin/Globulin [Mass ratio] 1.1 {ratio} 0.9-2.4 [facility] ALP [Catalytic activity/Vol] 53 U/L 45-117 [facility] ALT [Catalytic activity/Vol] 19 U/L 16-61 [facility] CO2 [Moles/Vol] 25.0 mmol/L 21.0-32.0 [facility] Globulin (S) [Mass/Vol] 3.9 g/dL 2.2-4.2 [facility] Urea nitrogen/Creatinine [Mass ratio] 13.3 mg/mg 10-20 [facility] Laboratory - Hematology and Cell countsOrdered By: Sanjana Hale on 06-06-2023 MCH (RBC) [Entitic mass] 28.9 pg 27.0-32.0 [facility] MCHC (RBC) [Mass/Vol] 32.7 g/dL 32-36 [facility] Nucleated RBC/100 WBC (Bld) [Ratio] 0 % 0-5 [facility] Platelet mean volume (Bld) [Entitic vol] 9.5 fL 6.2-12.0 [facility] Platelets (Bld) [#/Vol] 237 10*3/uL 150-450 [facility] Mucus LM Ql (Urine sed)Order ed By: Sanjana Hale on 06-06-2023 Mucus Ql (Urine sed) 0 SEEN /hpf [facility] Nitrite Test strip Ql (U)Ord ered By: Sanjana Hale on 06-06-2023 Nitrite Ql (U) Negative Negative [facility] No Panel InformationOrdered By: Sanjana Hale on 06-06-2023 Estimated GFR (MDRD) Amer 73 mL/min >60 [facility] Comment on above: GFR Calc Estimated GFR (MDRD) Non-Af Amer 61 mL/min >60 [facility] Comment on above: Non- GFR Calc Urine RBC 0 SEEN /hpf 0-5 [facility] Protein Test strip Ql (U)Ord ered By: Sanjana Hale on 06-06-2023 Protein Ql (U) Negative Negative [facility] RBC Auto (Bld) [#/Vol]Ordere d By: Sanjana Hale on 06-06-2023 RBC (Bld) [#/Vol] 5.15 10*6/uL 4.6-6.[address] [facility] Serum or plasma calcium jamila urement (mass/volume)Ordered By: Sanjana Hale on 06-06-2023 Calcium [Mass/Vol] 10.9 mg/dL 8.5-10.1 [facility] Serum or plasma creatinine m easurement (mass/volume)Ordered By: Sanjana Hale on 06-06-2023 Creatinine [Mass/Vol] 1.28 mg/dL 0.70-1.30 [facility] Comment on above: The validity of the calculated GFR & GFRAA in patients over 70 years has not been determined. Clinical correlation is essential. Serum or plasma urea nitroge n measurement (mass/volume)Ordered By: Sanjana Hale on 06-06-2023 Urea nitrogen [Mass/Vol] 17 mg/dL 7-18 [facility] Squamous epithelial cells de tection in urine sediment by light microscopyOrdered By: Sanjana Hale on 06-06-2023 Epithelial cells.squamous LM Ql (Urine sed) 0 SEEN /hpf 0-5 [facility] Thin prep Papanicolaou smear with manual screeningOrdered By: Sanjana Hale on 06-06-2023 Thin prep Papanicolaou smear with manual screening 4.3 g/dL 3.2-5.0 [facility] Thin prep Papanicolaou smear with manual screening 20 U/L 15-37 [facility] Thin prep Papanicolaou smear with manual screening 2 5-15 [facility] Urine blood detectionOrdered By: Sanjana Hale on 06-06-2023 RBC Ql (U) Negative Negative [facility] Urine clarityOrdered By: Kaylin Hale on 06-06-2023 Clarity (U) Clear Clear [facility] Urine color determinationOrd ered By: Sanjana Hale on 06-06-2023 Color (U) Yellow Yellow [facility] Urine glucose detectionOrder ed By: Sanjana Hale on 06-06-2023 Glucose Ql (U) Normal mg/dl Normal [facility] Urine leukocyte esterase det ection by dipstickOrdered By: Sanjana Hale on 06-06-2023 Leukocyte esterase Test strip Ql (U) Negative Negative [facility] Urine pHOrdered By: Sanjana oates on 06-06-2023 pH (U) 6.0 [pH] 5.0 - 8.0 [facility] Urine sediment bacteria coun t by microscopy (number/high power field)Ordered By: Sanjana Hale on 06-06-2023 Bacteria LM.HPF (Urine sed) [#/Area] 0 /[HPF] None Seen [facility] Urine specific gravity measu rementOrdered By: Sanjana Hale on 06-06-2023 Specific gravity (U) [Rel density] 1.015 1.002-1.030 [facility] Urine urobilinogen measureme ntOrdered By: Sanjana Hale on 06-06-2023 Urobilinogen Ql (U) Normal mg/dl Normal [facility] Basophil percentageOrdered B y: Sanjana Hale on 05-28-2023 Basophil percentage 0 SEEN /hpf 0-5 [facility] Bilirubin Test strip Ql (U)O rdered By: Sanjana Hale on 05-28-2023 Bilirubin Ql (U) Negative Negative [facility] Culture, urineOrdered By: Evelyn Hale on 05-28-2023 Bacteria identified Cx Nom (U) Culture exhibits no growth. [facility] Ketones Test strip Ql (U)Ord ered By: Sanjana Hale on 05-28-2023 Ketones Ql (U) Negative Negative [facility] Mucus LM Ql (Urine sed)Order ed By: Sanjana Hale on 05-28-2023 Mucus Ql (Urine sed) 0 SEEN /hpf [facility] Nitrite Test strip Ql (U)Ord ered By: Sanjana Hale on 05-28-2023 Nitrite Ql (U) Negative Negative [facility] No Panel InformationOrdered By: Sanjana Hale on 05-28-2023 Urine RBC 0 SEEN /hpf 0-5 [facility] Protein Test strip Ql (U)Ord ered By: Sanjana Hale on 05-28-2023 Protein Ql (U) 15 mg/dl Negative [facility] Squamous epithelial cells de tection in urine sediment by light microscopyOrdered By: Sanjana Hale on 05-28-2023 Epithelial cells.squamous LM Ql (Urine sed) 0-5 SEEN /hpf 0-5 [facility] Urine blood detectionOrdered By: Sanjana Hale on 05-28-2023 RBC Ql (U) Negative Negative [facility] Urine clarityOrdered By: Kaylin Hale on 05-28-2023 Clarity (U) Clear Clear [facility] Urine color determinationOrd ered By: Sanjana Hale on 05-28-2023 Color (U) Yellow Yellow [facility] Urine glucose detectionOrder ed By: Sanjana Hale on 05-28-2023 Glucose Ql (U) Normal mg/dl Normal [facility] Urine leukocyte esterase det ection by dipstickOrdered By: Sanjana Hale on 05-28-2023 Leukocyte esterase Test strip Ql (U) Negative Negative [facility] Urine pHOrdered By: Sanjana oates on 05-28-2023 pH (U) 6.0 [pH] 5.0 - 8.0 [facility] Urine sediment bacteria coun t by microscopy (number/high power field)Ordered By: Sanjana Hale on 05-28-2023 Bacteria LM.HPF (Urine sed) [#/Area] 0 /[HPF] None Seen [facility] Urine specific gravity measu rementOrdered By: Sanjana Hale on 05-28-2023 Specific gravity (U) [Rel density] 1.015 1.002-1.030 [facility] Urine urobilinogen measureme ntOrdered By: Sanjana Hale on 05-28-2023 Urobilinogen Ql (U) Normal mg/dl Normal [facility] Basophil percentageOrdered B y: Yolanda Vivar on 05-09-2023 Basophil percentage 0-5 SEEN /hpf 0-5 [facility] Bilirubin Test strip Ql (U)O rdered By: Yolanda Vivar on 05-09-2023 Bilirubin Ql (U) Negative Negative [facility] Culture, urineOrdered By: Sheridan Vivar on 05-09-2023 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 [facility] Ketones Test strip Ql (U)Ord ered By: Yolanda Vivar on 05-09-2023 Ketones Ql (U) Negative Negative [facility] Mucus LM Ql (Urine sed)Order ed By: Yolanda Vivar on 05-09-2023 Mucus Ql (Urine sed) 0 SEEN /hpf [facility] Nitrite Test strip Ql (U)Ord ered By: Yolanda Vivar on 05-09-2023 Nitrite Ql (U) Negative Negative [facility] No Panel InformationOrdered By: Yolanda Vivar on 05-09-2023 Urine RBC 0 SEEN /hpf 0-5 [facility] Protein Test strip Ql (U)Ord ered By: Yolanda iVvar on 05-09-2023 Protein Ql (U) Negative Negative [facility] Squamous epithelial cells de tection in urine sediment by light microscopyOrdered By: Yolanda Vivar on 05-09-2023 Epithelial cells.squamous LM Ql (Urine sed) 0-5 SEEN /hpf 0-5 [facility] Urine blood detectionOrdered By: Yolanda Vivar on 05-09-2023 RBC Ql (U) 10 /ul Negative [facility] Urine clarityOrdered By: Lincoln Vivar on 05-09-2023 Clarity (U) Clear Clear [facility] Urine color determinationOrd ered By: Yolanda Vivar on 05-09-2023 Color (U) Yellow Yellow [facility] Urine glucose detectionOrder ed By: Yolanda Vivar on 05-09-2023 Glucose Ql (U) Normal mg/dl Normal [facility] Urine leukocyte esterase det ection by dipstickOrdered By: Yolanda Vivar on 05-09-2023 Leukocyte esterase Test strip Ql (U) 25 /ul Negative [facility] Urine pHOrdered By: Yolanda Vivar on 05-09-2023 pH (U) 6.5 [pH] 5.0 - 8.0 [facility] Urine sediment bacteria coun t by microscopy (number/high power field)Ordered By: Yolanda Vivar on 05-09-2023 Bacteria LM.HPF (Urine sed) [#/Area] RARE /hpf None Seen [facility] Urine specific gravity measu rementOrdered By: Yolanda Vivar on 05-09-2023 Specific gravity (U) [Rel density] 1.015 1.002-1.030 [facility] Urine urobilinogen measureme ntOrdered By: Yolanda Vivar on 05-09-2023 Urobilinogen Ql (U) Normal mg/dl Normal [facility] 36on 04-30-2023 36 Multiple no shows an d cancellations. Needs seen in office for refills. [facility] Basophil percentageOrdered B y: Sanjana Hale on 03-21-2023 Bilirubin [Mass/Vol] 0.40 mg/dL 0.20-1.00 [facility] Comment on above: For patients on eltr ombopag therapy, use of Dimension [place] TBIL is not recommended. Protein [Mass/Vol] 8.0 g/dL 6.4-8.2 [facility] Cholesterol [Mass/Vol] 153 mg/dL <200 [facility] Comment on above: <200 mg/dL Desirable 200-240 mg/dL Borderline >240 mg/dL High Risk Triglyceride [Mass/Vol] 141 mg/dL <199 [facility] Comment on above: The drugs N-Acetylcy steine and Metamizole may falsely depress this assay.Serum Triglycerides Reference Interval Normal <150 mg/dL Borderline high 150 - 199 mg/dL High 200 - 499 mg/dL Very High > or = 500 mg/dL Direct bilirubinOrdered By: Sanjana Hale on 03-21-2023 Bilirubin.direct [Mass/Vol] 0.09 mg/dL 0.00-0.30 [facility] High density lipoprotein (HD L) measurementOrdered By: Sanjana Hale on 03-21-2023 Cholesterol in HDL (Body fld) [Mass/Vol] 37 mg/dL >40 [facility] Comment on above: The drugs N-Acetylcy steine and Metamizole may falsely depress this assay. Reference Range HDL <40 mg/dL Low HDL Cholesterol HDL >or= 60 mg/dL High HDL Cholesterol Laboratory - Chemistry and C hemistry - challengeOrdered By: Sanjana Hale on 03-21-2023 ALP [Catalytic activity/Vol] 57 U/L 45-117 [facility] ALT [Catalytic activity/Vol] 23 U/L 16-61 [facility] Globulin (S) [Mass/Vol] 3.7 g/dL 2.2-4.2 [facility] Low density lipoprotein (LDL ) cholesterol measurementOrdered By: Sanjana Hale on 03-21-2023 Cholesterol in LDL (Body fld) [Moles/Vol] 88 mg/dL 0-130 [facility] Screening prostate specific antigen (PSA) measurementOrdered By: Sanjana Hale on 03-21-2023 Prostate specific Ag IA [Mass/Vol] 0.34 ng/mL 0.00-4.00 [facility] Comment on above: This test was perfor med using the TPSA assay method for [employer] system. Values obtained with differentassay methods cannot be used interchangably.When changing PSA assays in the course of monitoring apatient, additional sequential testing should be carriedout to confirm baseline values. Thin prep Papanicolaou smear with manual screeningOrdered By: Sanjana Hale on 03-21-2023 Thin prep Papanicolaou smear with manual screening 4.3 g/dL 3.2-5.0 [facility] Thin prep Papanicolaou smear with manual screening 21 U/L 15-37 [facility] Very low density lipoprotein (VLDL) cholesterol measurementOrdered By: Sanjana Hale on 03-21-2023 Cholesterol in VLDL Calc [Moles/Vol] 28 mg/dL 5-40 [facility] Whole blood hemoglobin A1c/t otal hemoglobin ratio (mass fraction)Ordered By: Sanjana Hale on 03-21-2023 HbA1c (Bld) [Mass fraction] 5.3 % 3.8-5.6 [facility] Comment on above: Normal < 5.7 % Predi abetic 5.7 - 6.4 % Diabetic >or= 6.5 % Please note range changes. Absolute lymphocyte countOrd ered By: Ryan Ceja on 02-13-2023 Lymphocytes Auto (Unsp spec) [#/Vol] 0.89 10*3/uL 0.83-4.51 [facility] Basophil percentageOrdered B y: Ryan Ceja on 02-13-2023 Basophils/100 WBC (Bld) 0.3 % 0-1 [facility] Eosinophils/100 WBC (Bld) 0.8 % 0-5 [facility] Neutrophils (Bld) [#/Vol] 5.5 10*3/uL 2.0-7.7 [facility] Neutrophils/100 WBC (Bld) 77.5 % 47-70 [facility] WBC (Bld) [#/Vol] 7.1 10*3/uL 4.4-11.0 [facility] Blood erythrocytes count (nu mber/volume)Ordered By: Ryan Ceja on 02-13-2023 RBC (Bld) [#/Vol] 4.10 10*6/uL 4.6-6.[address] [facility] Blood hemoglobin measurement (mass/volume)Ordered By: Ryan Ceja on 02-13-2023 Hemoglobin (Bld) [Mass/Vol] 12.3 g/dL 13.0-16.5 [facility] Blood lymphocytes/100 leukoc ytesOrdered By: Ryan Ceja on 02-13-2023 Lymphocytes/100 WBC (Bld) 12.6 % 19-41 [facility] Blood monocytes/100 leukocyt esOrdered By: Ryan Ceja on 02-13-2023 Monocytes/100 WBC (Bld) 8.5 % 0-10 [facility] Blood platelet mean volumeOr dered By: Ryan Ceja on 02-13-2023 Platelet mean volume (Bld) [Entitic vol] 9.6 fL 6.2-12.0 [facility] Determination of erythrocyte mean corpuscular volume (MCV)Ordered By: Ryan Ceja on 02-13-2023 MCV (RBC) [Entitic vol] 92.7 fL 80-94 [facility] Hematocrit Auto (Bld) [Volum e fraction]Ordered By: Ryan Ceja on 02-13-2023 Hematocrit (Bld) [Volume fraction] 38.0 % 40-54 [facility] Laboratory - CoagulationOrde red By: Ryan Ceja on 02-13-2023 aPTT Coag (Bld) [Time] 47.0 s 24.1-36.2 [facility] Laboratory - Hematology and Cell countsOrdered By: Ryan Ceja on 02-13-2023 Erythrocyte distribution width (RBC) [Entitic vol] 45.6 fL 35.1-43.9 [facility] Erythrocyte distribution width (RBC) [Ratio] 13.4 % 11.6-14.6 [facility] Immature granulocytes/100 WBC (Bld) 0.300 % 0.0-0.9 [facility] Comment on above: IG% - Immature Granu locytes (promyelocytes, myelocytes and metamyelocytes) > 1% indicates that a LEFT SHIFT is Present. MCH (RBC) [Entitic mass] 30.0 pg 27.0-32.0 [facility] Nucleated RBC/100 WBC (Bld) [Ratio] 0 % 0-5 [facility] MCHC Auto (RBC) [Mass/Vol]Or dered By: Ryan Ceja on 02-13-2023 MCHC (RBC) [Mass/Vol] 32.4 g/dL 32-36 [facility] Platelets bldOrdered By: Suzette Ceja on 02-13-2023 Platelets (Bld) [#/Vol] 202 10*3/uL 150-450 [facility] Basophil percentageOrdered B y: Ryan Ceja on 02-12-2023 Chloride [Moles/Vol] 113 mmol/L 98-107 [facility] Glucose [Mass/Vol] 95 mg/dL 74-106 [facility] Potassium [Moles/Vol] 4.4 mmol/L 3.5-5.1 [facility] Sodium [Moles/Vol] 141 mmol/L 136-145 [facility] Laboratory - Chemistry and C hemistry - challengeOrdered By: Ryan Ceja on 02-12-2023 CO2 [Moles/Vol] 26.0 mmol/L 21.0-32.0 [facility] Urea nitrogen/Creatinine [Mass ratio] 14.7 mg/mg 10-20 [facility] No Panel InformationOrdered By: Ryan Ceja on 02-12-2023 Activated Clotting Time 212 sec 74-137 [facility] Estimated Creatinine Clearance Calc 82.74 ml/min [facility] Estimated GFR (MDRD) Amer 88 mL/min >60 [facility] Comment on above: GFR Calc Estimated GFR (MDRD) Non-Af Amer 73 mL/min >60 [facility] Comment on above: Non- GFR Calc Serum or plasma calcium jamila urement (mass/volume)Ordered By: Ryan Ceja on 02-12-2023 Calcium [Mass/Vol] 9.9 mg/dL 8.5-10.1 [facility] Serum or plasma creatinine m easurement (mass/volume)Ordered By: Ryan Ceja on 02-12-2023 Creatinine [Mass/Vol] 1.09 mg/dL 0.70-1.30 [facility] Comment on above: The validity of the calculated GFR & GFRAA in patients over 70 years has not been determined. Clinical correlation is essential. Serum or plasma urea nitroge n measurement (mass/volume)Ordered By: Ryan Ceja on 02-12-2023 Urea nitrogen [Mass/Vol] 16 mg/dL 7-18 [facility] Thin prep Papanicolaou smear with manual screeningOrdered By: Ryan Ceja on 02-12-2023 Thin prep Papanicolaou smear with manual screening 2 5-15 [facility] Basophil percentageOrdered B y: Ryan Ceja on 02-07-2023 Basophil percentage < 1.0 mg/dL 0.70-1.30 [facility] No Panel InformationOrdered By: Fabio Day on 02-07-2023 Thyroid Stimulating Hormone (TSH) 1.36 uIU/mL 0.358-3.74 [facility] No Panel InformationOrdered By: Ryan Ceja on 02-07-2023 Bedside Estimated GFR (eGFR) > 60.0000 mL/min >60 [facility] 36on 01-29-2023 36 Medication name: tamsulosin [...] prior to picking up the medication: No [address] 01-25-2023 36 90 day supply for cabergoiline sent [place] [address] Name of caller: Flower crowe Contact phone number: [phone] Relationship to Patient: patient Provider: Dr Ruiz Practice: Endo Chief Complaint/Reason for Call: Pt states that Dr Mendoza was aware that the pt was on vacation and that Dr Mendoza wanted to know immediately when the pt came back in town so that a prescription of a 90 day supply of cabergoline (Dostinex) 0.5 MG tablet [[id number]] would be call in to the [facility] pharmacy on file. Pt states is all out of the medication. Please advise Best time of day caller can be reached: Any Patient advised that office/PCP has 24-48 business hours to return their call: Yes [address] 01-09-2023 36 Pa approved [address] 01-08-2023 Submitted PA for testosterone pump 2 pumps daily for 150g for a 30 day supply. Waiting on determination from [facility]. [address] 01-04-2023 36 Was informed by pharmacy that prescription for androgel needs prior auth , can you please help with this ? Thanks [place] [address] Patient was here in the clinic to [...] 01/03/2023 TESTOSTERONE 72 - 623 ng/dL [address] [place] [address] It looks like you sent the cabergoline in on 01/02/23, but does he take testosterone? I do not see it. Normal [facility] 36 Name of caller: Flower crowe Contact phone number: [phone] Relationship to Patient: patient Provider: Joseph Practice: [...] hours to return their call: Yes Normal [facility] 25-hydroxyvitamin D3 [Mass/V ol]on 01-03-2023 Interpretation and review of laboratory results Normal [facility] Therapy is based on measurement of Total 25-OHD with the following classification levels: Less than 20 ng/mL: Indicative of Vit D deficiency 20-30 ng/mL: Suggests Vit D insufficiency Optimal: Greater than or equal to 30 ng/mL Test performed by [employer] Comp[employer] Immunoassay, measuring Total Vitamin D, not individual fractions. [facility] COMPREHENSIVE METABOLIC PANE Sumeet 01-03-2023 Albumin [Mass/Vol] 4.7 g/dL Normal 3.5-5.0 [facility] Comment on above: Performed By: #### L [id number] #### Fruit Peeler: LENORE ESCOBAR ([id number]) [facility] ([facility]) [address] [place] [address] ALP [Catalytic activity/Vol] 46 U/L Normal 38-126 [facility] Comment on above: Performed By: #### L [id number] #### Fruit Peeler: LENORE ESCOBAR ([id number]) [facility] ([facility]) [address] [place] [address] [place] ALT [Catalytic activity/Vol] 17 U/L Normal 0-49 [facility] Comment on above: Performed By: #### L [id number] #### Fruit Peeler: LENORE ESCOBAR ([id number]) [facility] ([facility]) [address] [place] [address] Anion gap [Moles/Vol] 11 mmol/L Normal 3-13 [facility] Comment on above: Performed By: #### L [id number] #### Fruit Peeler: LENORE ESCOBAR ([id number]) [facility] ([facility]) [address] [place] [address] [place] AST [Catalytic activity/Vol] 23 U/L Normal 15-46 [facility] Comment on above: Performed By: #### L [id number] #### Fruit Peeler: LENORE ESCOBAR ([id number]) [facility] ([facility]) [address] [place] [address] [place] Bilirubin [Mass/Vol] 0.5 mg/dL Normal 0.2-1.3 [facility] Comment on above: Performed By: #### L [id number] #### Fruit Peeler: LENORE ESCOBAR ([id number]) [facility] [address] [place] [address] Calcium [Mass/Vol] 10.5 mg/dL High 8.4-10.4 [facility] Comment on above: Performed By: #### L [id number] #### Fruit Peeler: LENORE ESCOBAR ([id number]) [facility] ([facility]) [address] [place] [address] [place] Chloride [Moles/Vol] 109 mmol/L High 98-107 [facility] Comment on above: Performed By: #### L [id number] #### Fruit Peeler: LENORE ESCOBAR ([id number]) [facility] ([facility]) [address] [place] [address] [place] CO2 [Moles/Vol] 20 mmol/L Low 22-30 [facility] Comment on above: Performed By: #### L [id number] #### Fruit Peeler: LENORE ESCOBAR ([id number]) [facility] ([facility]) [address] [place] [address] [place] Creatinine [Mass/Vol] 1.20 mg/dL Normal 0.66-1.25 [facility] Comment on above: Performed By: #### L [id number] #### Fruit Peeler: LENORE ESCOBAR ([id number]) [facility] ([facility]) [address] [place] [address] [place] GLOMERULAR FILTRATION RATE ML/MIN/1.73 SQ M.PREDICTED 68.8 mL/min/1.73m*2 Normal >60.0 [facility] Comment on above: Result Comment: Calc ulation based on the Chronic Kidney Disease Epidemiology Collaboration (CKD-EPI) equation refit without adjustment for race Performed By: #### L [id number] #### Fruit Peeler: LENORE ESCOBAR ([id number]) [facility] [address] [place] [address] Glucose [Mass/Vol] 113 mg/dL High 70-100 [facility] Comment on above: Performed By: #### L [id number] #### Fruit Peeler: LENORE ESCOBAR ([id number]) [facility] ([facility]) [address] [place] [address] Potassium [Moles/Vol] 4.5 mmol/L Normal 3.5-5.1 [facility] Comment on above: Performed By: #### L [id number] #### Fruit Peeler: LENORE ESCOBAR ([id number]) [facility] [address] [place] [address] Protein [Mass/Vol] 7.9 g/dL Normal 6.3-8.2 [facility] Comment on above: Performed By: #### L [id number] #### Fruit Peeler: LENORE ESCOBAR ([id number]) [facility] ([facility]) [address] [place] [address] Sodium [Moles/Vol] 140 mmol/L Normal 135-145 [facility] Comment on above: Performed By: #### L [id number] #### Fruit Peeler: LENORE ESCOBAR ([id number]) [facility] ([facility]) [address] [place] [address] [place] Urea nitrogen [Mass/Vol] 20 mg/dL Normal 9-20 [facility] Comment on above: Performed By: #### L [id number] #### Fruit Peeler: LENORE ESCOBAR ([id number]) [facility] [address] [place] [address] Comprehensive metabolic 1998 panelon 01-03-2023 Albumin [Mass/Vol] 4.7 g/dL 3.5 - 5.0 g/dL [facility] ALP [Catalytic activity/Vol] 46 U/L 38 - 126 U/L [facility] ALT [Catalytic activity/Vol] 17 U/L 0 - 49 U/L [facility] Anion gap [Moles/Vol] 11 mmol/L 3 - 13 mmol/L [facility] AST [Catalytic activity/Vol] 23 U/L 15 - 46 U/L [facility] Bilirubin [Mass/Vol] 0.5 mg/dL 0.2 - 1 .3 mg/dL [facility] Calcium [Mass/Vol] 10.5 mg/dL High 8.4 - 10. 4 mg/dL [facility] Chloride [Moles/Vol] 109 mmol/L High 98 - 10 7 mmol/L [facility] CO2 [Moles/Vol] 20 mmol/L Low 22 - 30 mmol/L [facility] Creatinine [Mass/Vol] 1.20 mg/dL 0.66 - 1.25 mg/dL [facility] GFR/1.73 sq M.predicted MDRD (S/P/Bld) [Vol rate/Area] 68.8 mL/min/{1.73_m2} - PINF [facility] Comment on above: Calculation based on the Chronic Kidney Disease Epidemiology Collaboration (CKD-EPI) equation refit without adjustment for race Glucose [Mass/Vol] 113 mg/dL High 70 - 100 mg/dL [facility] Interpretation and review of laboratory results Abnormal [facility] Potassium [Moles/Vol] 4.5 mmol/L 3.5 - 5.1 mmol/L [facility] Protein [Mass/Vol] 7.9 g/dL 6.3 - 8.2 g/dL [facility] Sodium [Moles/Vol] 140 mmol/L 135 - 145 mmol/L [facility] Urea nitrogen [Mass/Vol] 20 mg/dL 9 - 20 mg/dL [facility] FOLLICLE STIMULATING HORMONE on 01-03-2023 FOLLICLE STIM HORMONE 7.3 mIU/mL Normal [facility] Comment on above: Result Comment: JULISSA Issa COMMENTS: Females: Follicular Phase ...... 2.0-11.6 Mid-cycle Peak ........ 5.1-23.4 Luteal Phase .......... 1.4-9.6 Post-menopausal ....... 21.5-131.0 Males: 1.6-9.7 Performed By: #### L [id number] #### Fruit Peeler: LENORE ESCOBAR ([id number]) [facility] ([facility]) [address] [place] [address] [place] FREE T4on 01-03-2023 Free T4 [Mass/Vol] 0.87 ng/dL Normal 0.78-2.19 [facility] Comment on above: Performed By: #### L [id number] #### Fruit Peeler: LENORE ESCOBAR ([id number]) [facility] ([facility]) [address] [place] [address] Follicle stimulating hormone on 01-03-2023 Follitropin Qn 7.3 m[IU]/mL mIU/mL [facility] Females: Follicular Phase ...... 2.0-11.6 Mid-cycle Peak ........ 5.1-23.4 Luteal Phase .......... 1.4-9.6 Post-menopausal ....... 21.5-131.0 Males: 1.6-9.7 [facility] Free T4 [Mass/Vol]on 023 Free T4 Dialysis [Mass/Vol] 0.87 ng/dL 0.78 - 2.19 ng/dL [facility] Interpretation and review of laboratory results Normal [facility] HEMOGLOBIN AND HEMATOCRIT, B LOODon 01-03-2023 Hematocrit (Bld) [Volume fraction] 42.3 % Normal 40.0-52.0 [facility] Comment on above: Performed By: #### L [id number] #### Fruit Peeler: LENORE ESCOBAR ([id number]) [facility] ([facility]) [address] [place] [address] Hemoglobin (Bld) [Mass/Vol] 14.4 g/dL Normal 13.0-18.0 [facility] Comment on above: Performed By: #### L [id number] #### Fruit Peeler: LENORE ESCOBAR ([id number]) [facility] ([facility]) [address] Hemoglobin (Bld) [Mass/Vol]o n 01-03-2023 Hematocrit (Bld) [Volume fraction] 42.3 % 40.0 - 52.0 % [facility] Interpretation and review of laboratory results Normal [facility] Hemoglobin and hematocrit, b loodon 01-03-2023 Hemoglobin (Bld) [Mass/Vol] 14.4 g/dL 13.0 - 18.0 g/dL [facility] LUTEINIZING HORMONEon 2022 LUTEINIZING HORMONE 4.8 mIU/mL Normal [facility] Comment on above: Result Comment: Fema les: Follicular Phase ...... 1.9-26.2 Mid-Cycle Peak ........ 22.8-76.1 Luteal Phase .......... 0.6-16.6 Post-menopausal ....... 8.6-61.8 (Not on MHT) Males: 1.2-10.6 Performed By: #### L [id number] #### Fruit Peeler: LENORE ESCOBAR ([id number]) [facility] ([facility]) [address] [place] [address] Luteinizing hormoneon 2022 Lutropin Qn 4.8 m[IU]/mL mIU/mL [facility] Comment on above: Females: Follicular Phase ...... 1.9-26.2 Mid-Cycle Peak ........ 22.8-76.1 Luteal Phase .......... 0.6-16.6 Post-menopausal ....... 8.6-61.8 (Not on MHT) Males: 1.2-10.6 No Panel Informationon 01-03 [facility] PROLACTINon 01-03-2023 PROLACTIN 29.4 ng/mL High 4.0-18.0 [facility] Comment on above: Result Comment: ORDE R COMMENTS: Values below 35 ng/mL may be of doubtful significance. Recommend send-out testing to rule out macroprolactin to confirm the result. Performed By: #### L [id number] #### Fruit Peeler: LENORE ESCOBAR ([id number]) [facility] ([facility]) [address] [place] [address] PSA TOTAL (SCREENING)on PROSTATE SPECIFIC AG SCREEN 0.2 ng/mL Normal <4.0 [facility] Comment on above: Result Comment: JULISSA Issa COMMENTS: Testing performed on the VYou i using the chemiluminescent microparticle immunoassay method. Results obtained by different methods should not be used interchangeably. PSA result is based on a new assay run on a new instrument and the results may not be comparable with assays run prior to 11/13/2022. Performed By: #### L [id number] #### Fruit Peeler: LENORE ESCOBAR ([id number]) [facility] ([facility]) [address] [place] [address] PSA Total (Screening)on Interpretation and review of laboratory results Normal [facility] Prostate specific Ag [Mass/Vol] 0.2 ng/mL NINF - 4.0 ng/mL [facility] viaCycle Testing performed on the VYou i using the chemiluminescent microparticle immunoassay method. Results obtained by different methods should not be used interchangeably. PSA result is based on a new assay run on a new instrument and the results may not be comparable with assays run prior to 11/13/2022. [facility] PTH INTACTon 01-03-2023 PTH, INTACT 51.7 pg/mL Normal 7.5-53.5 [facility] Comment on above: Performed By: #### L [id number] #### Fruit Peeler: LENORE ESCOBAR ([id number]) [facility] ([facility]) [address] [place] [address] PTH, intacton 01-03-2023 Parathyrin.intact [Mass/Vol] 51.7 pg/mL 7.5 - 53.5 pg/mL [facility] Parathyrin.intact [Mass/Vol] on 01-03-2023 Interpretation and review of laboratory results Normal [facility] Prolactinon 01-03-2023 Interpretation and review of laboratory results Abnormal [facility] Prolactin [Mass/Vol] 29.4 ng/mL High 4.0 - 1 8.0 ng/mL [facility] Values below 35 ng/m L may be of doubtful significance. Recommend send-out testing to rule out macroprolactin to confirm the result. [facility] TESTOSTERONEon 01-03-2023 Testosterone [Mass/Vol] 103 ng/dL Normal 72-623 [address] [facility] Comment on above: Performed By: #### L [id number] #### Fruit Peeler: LENORE ESCOBAR ([id number]) [facility] ([facility]) [address] [place] [address] THYROID STIMULATING HORMONEo n 01-03-2023 THYROID STIMULATING HORMONE 2.568 uIU/mL Normal 0.465-4.680 [facility] Comment on above: Performed By: #### L [id number] #### Fruit Peeler: LENORE ESCOBAR ([id number]) [facility] ([facility]) [address] [place] [address] TSHon 01-03-2023 TSH Qn 2.568 m[IU]/L [facility] h TSH Qnon 01-03-2023 Interpretation and review of laboratory results Normal [facility] th [facility] Testosteroneon 01-03-2023 Interpretation and review of laboratory results Normal [facility] Testosterone [Mass/Vol] 103 ng/dL 72 - 623 ng/dL [facility] VITAMIN D DEFICIENCY SCREENI NG (VIT D 25)on 01-03-2023 VIT D 25-OH, TOTAL 33 ng/mL Normal 30-100 [facility] Comment on above: Result Comment: JULISSA Issa COMMENTS: Therapy is based on measurement of Total 25-OHD with the following classification levels: Less than 20 ng/mL: Indicative of Vit D deficiency 20-30 ng/mL: Suggests Vit D insufficiency Optimal: Greater than or equal to 30 ng/mL Test performed by [employer] Competitive Immunoassay, measuring Total Vitamin D, not individual fractions. Performed By: #### L [id number] #### Fruit Peeler: LENORE ESCOBAR ([id number]) [facility] ([facility]) [address] [place] [address] Vitamin D Deficiency Screeni ng (Vit D 25)on 01-03-2023 25-hydroxyvitamin D3 [Mass/Vol] 33 ng/mL 30 - 100 ng/mL [facility] 36on 01-02-2023 36 called and spoke wit h pharmacist, insurance will not cover a 90-day supply right now but will cover a 30-day supply. Prescription for 30 days sent to the pharmacy, informed patient. [facility] 36 Pt called and states that pharmacy refuses to refill the cabergoline Script that you sent in today. States that they can not refill until 01/24/23 and he will be without medication for 2 weeks by that point and will also be out of town on that date. Pt requesting a call back CHANCE. Normal [facility] Office Visiton 01-02-2023 Follow-up visit [id number] F[place] Queen 1960 [facility] Provider Department [place] 01/02/2023 [id number] SCHUSTERSHMG SB END None Family History Adopted: Yes Problem Relation Age of Onset No Known Problems Father Cancer Mother Comments: lung Family Status - Relation Status Age at Father Mother Level of Service:49679 NE OFFICE/OUTPATIENT ESTABLISHED MOD MDM 30-39 MIN Reason for Visit and Comments: Follow-up [238429] Hypothyroidism [143] pituitary macroprolactinoma [Other] [facility] Follow-up visit [id number] Flower Queen 1960 [facility] Provider Department Center 01/02/2023 [id number] VÁZQUEZ SHMG GIACOMO BAR None Family History Adopted: Yes Problem Relation Age of Onset No Known Problems Father Cancer Mother Comments: lung Family Status - Relation Status Age at Father Mother Level of Service:26218 NE OFFICE/OUTPATIENT ESTABLISHED LOW MDM 20-29 MIN Reason for Visit and Comments: Post-op [483] - 1st po L iliofemoral DVT thrombectomy 12/21/[address] [facility] Progress Noteon 01-02-2023 Progress Note [facility] ENDOCRIN[facility] [address] [facility] [address] [facility] [address] Dept: [phone] Dept Loc: [phone] Visit type: Established Reason for Visit: Follow-up, [...] Cheryl Basilio MD Referring is PCP Previous Gravel Inspector: Dr Sal & Dr Benito [facility] Last office visit: [...] is supposed to have followed up with erp business analyst Dr. Monge , but has missed his [...] (Triglide) 160 (more content not included)... Normal [facility] Progress Note 01/02/2023 Corrie Queen 1960 Chief [...] guarantee Follow up for any concerns. . [facility] Progress Noteon 12-31-2022 Progress Note Chart reviewed of ED follow up Seen in [facility] ED on 12/25/2022 Reason: Bleeding post-op [...] Dr. Davonte SANDERSON Vascular surgery. Seen in [facility] on 12/22/22 for Flank pain was seen she has been in contact with her PCP. On 12/25/22 she was admitted for Sebaceous cyst of left eyelid. [facility] 36on 12-26-2022 36 Left detailed VM per patient request to inform. [facility] 36 Pt just had surgery yesterday--planned OV 01/02 Would advise patient wait until evaluated at post op appointment [facility] 36 Patient had L leg venogram 12/25/22 [...] vein. Next OV 01/02/[address] [facility] [id number] 12-25-2022 [id number] Patient upset jaceyin g to leave,eye drops called to his pharmacy, patient transported out via w/c with the daughter [facility] [id number] Patient post bedrest is complains of left eye pain and light sensitivity, upon attempting to open the eye, Dr Cornelius contacted and re recommends eye oint for 2 days and follow up with eye MD if no better in 2 days , Resident Pacheco Santiago notified they will place new orders. [facility] [id number] Discharge instructions reviewed with the patient and the daughter, patient to follow up with after discharge, no further questions , patient instructed on surgical site care. [facility] [id number] Family notified of arrival to [facility] 36on 12-25-2022 36 Mychart message sent [facility] ED Nursing Noteon 12-25-2022 ED Nursing Note Bleeding subsided. P t given dc instructions and follow up care. Pt verbalizes understanding. Pt amb indep to dc area, home w family [facility] ED Nursing Note Patient ambulatory t o [...] preparing for surgery. Call light in reach. [facility] ED Provider Noteon ED Provider Note Emergency Department Encounter [facility] ED Patient: Corrie Queen : 1960 [...] [employer] Pacheco Ortiz MD 12/25/[address] [facility] [place] GUIDANCE OR USE ONLY - NO N RESULTABLEon 12-25-2022 There is no interpretation needed for this exam. IMAGING Nursing Noteon 12-25-2022 Nursing Note Daughter called to the room [facility] Nursing Note Family member update d Maury daughter regarding current status and bedrest 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 [facility] 36on 12-24-2022 36 Urinalysis and urine culture still show no signs of infection. Thanks [facility] 36 Name of caller: Flower Queen Contact phone number: [phone] Relationship to Patient: patient Provider: Dr. Basilio [...] business hours to return their call: Yes [facility] 36 Name of caller: Flower Queen Contact phone number: [phone] Relationship to Patient: patient Provider: Dr. Basilio [...] hours to return their call: Yes Normal [facility] 36on 12-22-2022 36 S: Patient spoke wit [...] seen at beginning of the week in [place]. Urine was negative at that time. Was [...] Patient verbalizes understanding. States will go to [place] ED because has not had luck at [place]. Instructed to call back with any further questions or concerns. Reason for Disposition [1] Abdominal pain AND [2] age > 60 years Protocols used: Flank [id number] Normal [facility] BASIC METABOLIC PANELon 11-26 Anion gap [Moles/Vol] 10 mmol/L Normal 3-13 [facility] Comment on above: Performed By: #### L [id number] #### Fruit Peeler: LENORE ESCOBAR ([id number]) [facility] ([facility]) [address] Calcium [Mass/Vol] 10.5 mg/dL High 8.4-10.4 [facility] Comment on above: Performed By: #### L [id number] #### Fruit Peeler: LENORE ESCOBAR ([id number]) [facility] [address] [place] [address] Chloride [Moles/Vol] 109 mmol/L High 98-107 [facility] Comment on above: Performed By: #### L [id number] #### Fruit Peeler: LENORE ESCOBAR ([id number]) [facility] [address] [place] [address] CO2 [Moles/Vol] 22 mmol/L Normal 22-30 [facility] Comment on above: Performed By: #### L [id number] #### Fruit Peeler: LENORE ESCOBAR ([id number]) [facility] [address] [place] [address] Creatinine [Mass/Vol] 1.18 mg/dL Normal 0.66-1.25 [facility] Comment on above: Performed By: #### L [id number] #### Fruit Peeler: LENORE ESCOBAR ([id number]) [facility] ([facility]) [address] [place] [address] GLOMERULAR FILTRATION RATE ML/MIN/1.73 SQ M.PREDICTED 70.2 mL/min/1.73m*2 Normal >60.0 [facility] Comment on above: Result Comment: Calc ulation based on the Chronic Kidney Disease Epidemiology Collaboration (CKD-EPI) equation refit without adjustment for race Performed By: #### L [id number] #### Fruit Peeler: LENROE ESCOBAR ([id number]) [facility] [address] [place] [address] [place] Glucose [Mass/Vol] 104 mg/dL High 70-100 [facility] Comment on above: Performed By: #### L [id number] #### Fruit Peeler: LENORE ESCOBAR ([id number]) [facility] [address] [place] [address] [place] Potassium [Moles/Vol] 4.1 mmol/L Normal 3.5-5.1 [facility] Comment on above: Performed By: #### L [id number] #### Fruit Peeler: LENORE ESCOBAR ([id number]) [facility] ([facility]) [address] [place] [address] Sodium [Moles/Vol] 142 mmol/L Normal 135-145 [facility] Comment on above: Performed By: #### L [id number] #### Fruit Peeler: LENORE ESCOBAR ([id number]) [facility] [address] [place] [address] Urea nitrogen [Mass/Vol] 18 mg/dL Normal 9-20 [facility] Comment on above: Performed By: #### L [id number] #### Fruit Peeler: LENORE ESCOBAR ([id number]) [facility] [address] [place] [address] Basic metabolic 1998 panelon 12-22-2022 Anion gap [Moles/Vol] 10 mmol/L 3 - 13 mmol/L [facility] Calcium [Mass/Vol] 10.5 mg/dL High 8.4 - 10. 4 mg/dL [facility] Chloride [Moles/Vol] 109 mmol/L High 98 - 10 7 mmol/L [facility] CO2 [Moles/Vol] 22 mmol/L 22 - 30 mmol/L [facility] Creatinine [Mass/Vol] 1.18 mg/dL 0.66 - 1.25 mg/dL [facility] GFR/1.73 sq M.predicted MDRD (S/P/Bld) [Vol rate/Area] 70.2 mL/min/{1.73_m2} - PINF [facility] Comment on above: Calculation based on the Chronic Kidney Disease Epidemiology Collaboration (CKD-EPI) equation refit without adjustment for race Glucose [Mass/Vol] 104 mg/dL High 70 - 100 mg/dL [facility] Interpretation and review of laboratory results Abnormal [facility] Potassium [Moles/Vol] 4.1 mmol/L 3.5 - 5.1 mmol/L [facility] Sodium [Moles/Vol] 142 mmol/L 135 - 145 mmol/L [facility] Urea nitrogen [Mass/Vol] 18 mg/dL 9 - 20 mg/dL [facility] CBC W Auto Differential pane l (Bld)Ordered By: Akila Denson on 12-22-2022 Basophils (Bld) [#/Vol] 0.0 10*3/uL 0.0 - 0.2 10*3/uL [facility] Basophils/100 WBC (Bld) 0.7 % 0.0 - 2.0 % [facility] Eosinophils (Bld) [#/Vol] 0.2 10*3/uL 0. 0 - 0.5 10*3/uL [facility] Eosinophils/100 WBC (Bld) 3.4 % 1.0 - 6.0 % [facility] Erythrocyte distribution width (RBC) [Ratio] 14.0 % 11.5 - 14.5 % [facility] Hematocrit (Bld) [Volume fraction] 41.6 % 40.0 - 52.0 % [facility] Hemoglobin (Bld) [Mass/Vol] 14.1 g/dL 13.0 - 18.0 g/dL [facility] Immature granulocytes (Bld) [#/Vol] 0.0 10*3/uL NINF - 0.0 10*3/uL [facility] Immature granulocytes/100 WBC (Bld) 0.2 % High NINF - 0.0 % [facility] Interpretation and review of laboratory results Abnormal [facility] th Lymphocytes (Bld) [#/Vol] 1.7 10*3/uL 1. 0 - 4.3 10*3/uL [facility] Lymphocytes/100 WBC (Bld) 30.9 % 20 .0 - 40.0 % [facility] MCH (RBC) [Entitic mass] 31.2 pg 26. 0 - 34.0 pg [facility] MCHC (RBC) [Mass/Vol] 33.9 % 32.0 - 36.0 % [facility] MCV (RBC) [Entitic vol] 92.0 fL 80.0 - 98.0 fL [facility] Monocytes (Bld) [#/Vol] 0.5 10*3/uL 0.0 - 0.8 10*3/uL [facility] Monocytes/100 WBC (Bld) 8.8 % 2.0 - 10.0 % [facility] Neutrophils (Bld) [#/Vol] 3.0 10*3/uL 1. 8 - 7.0 10*3/uL [facility] Neutrophils/100 WBC (Bld) 56.0 % 40 .0 - 80.0 % [facility] Platelet mean volume (Bld) [Entitic vol] 9.1 fL 7.4 - 12.4 fL [facility] Comment on above: MPV is a calculated measurement using platelet volume ratio Platelets (Bld) [#/Vol] 243 10*3/uL 140 - 440 10*3/uL [facility] RBC (Bld) [#/Vol] 4.52 10*6/uL 4.40 - 5.9 0 10*6/uL [facility] WBC (Bld) [#/Vol] 5.4 10*3/uL 3.6 - 10.7 10*3/uL [facility] CBC WITH AUTO DIFFERENTIALon 12-22-2022 Basophils (Bld) [#/Vol] 0.0 10*3/uL Normal 0.0-0.2 [facility] Comment on above: Performed By: #### L [id number] #### Fruit Peeler: LENORE ESCOBAR ([id number]) [facility] ([facility]) [address] [place] [address] [place] Basophils/100 WBC (Bld) 0.7 % Normal 0.0-2.0 [facility] Comment on above: Performed By: #### L [id number] #### Fruit Peeler: LENORE ESCOBAR ([id number]) [facility] ([facility]) [address] [place] [address] [place] Eosinophils (Bld) [#/Vol] 0.2 10*3/uL Normal 0.0-0.5 [facility] Comment on above: Performed By: #### L [id number] #### Fruit Peeler: LENORE ESCOBAR ([id number]) [facility] ([facility]) [address] [place] [address] [place] Eosinophils/100 WBC (Bld) 3.4 % Normal 1.0-6.0 [facility] Comment on above: Performed By: #### L [id number] #### Fruit Peeler: LENORE [id number]) [facility] ([facility]) [address] [place] [address] Erythrocyte distribution width (RBC) [Ratio] 14.0 % Normal 11.5-14.5 [facility] Comment on above: Performed By: #### L [id number] #### Fruit Peeler: LENORE ESCOBAR ([id number]) [facility] ([facility]) [address] [place] [address] ERYTHROCYTE MEAN CORPUSCULAR HEMOGLOBIN CONCENTRATION (G/DL) BY AUTOMATED 33.9 % Normal 32.0-36.0 [facility] Comment on above: Performed By: #### L [id number] #### Fruit Peeler: ELNORE ESCOBAR ([id number]) [facility] ([facility]) [address] [place] [address] Hematocrit (Bld) [Volume fraction] 41.6 % Normal 40.0-52.0 [facility] Comment on above: Performed By: #### L [id number] #### Fruit Peeler: LENORE ESCOBAR ([id number]) [facility] ([facility]) [address] [place] [address] Hemoglobin (Bld) [Mass/Vol] 14.1 g/dL Normal 13.0-18.0 [facility] Comment on above: Performed By: #### L [id number] #### Fruit Peeler: LENORE ESCOBAR ([id number]) [facility] ([facility]) [address] [place] [address] IMMATURE GRANS (10*3/UL) IN BLOOD BY AUTOMATED COUNT 0.0 10*3/uL Normal <=0.0 [facility] Comment on above: Performed By: #### L [id number] #### Fruit Peeler: LENORE ESCOBAR ([id number]) [facility] ([facility]) [address] [place] [address] IMMATURE GRANS/100 LEUKOCYTES IN BLOOD BY AUTOMATED COUNT 0.2 % High <=0.0 [facility] Comment on above: Performed By: #### L [id number] #### Fruit Peeler: LENORE ESCOBAR ([id number]) [facility] ([facility]) [address] [place] [address] Lymphocytes (Bld) [#/Vol] 1.7 10*3/uL Normal 1.0-4.3 [facility] Comment on above: Performed By: #### L [id number] #### Fruit Peeler: LENORE ESCOBAR ([id number]) [facility] ([facility]) [address] [place] [address] Lymphocytes/100 WBC (Bld) 30.9 % Normal 20.0-40.0 [facility] Comment on above: Performed By: #### L [id number] #### Fruit Peeler: LENORE ESCOBAR ([id number]) [facility] ([facility]) [address] [place] [address] MCH (RBC) [Entitic mass] 31.2 pg Normal 26.0-34.0 [facility] Comment on above: Performed By: #### L [id number] #### Fruit Peeler: LENORE ESCOBAR ([id number]) [facility] ([facility]) [address] [place] [address] MCV (RBC) [Entitic vol] 92.0 fL Normal 80.0-98.0 [facility] Comment on above: Performed By: #### L [id number] #### Fruit Peeler: LENORE ESCOBAR ([id number]) [facility] ([facility]) [address] [place] [address] Monocytes (Bld) [#/Vol] 0.5 10*3/uL Normal 0.0-0.8 [facility] Comment on above: Performed By: #### L [id number] #### Fruit Peeler: LENORE ESCOBAR ([id number]) [facility] ([facility]) [address] [place] [place] [address] Monocytes/100 WBC (Bld) 8.8 % Normal 2.0-10.0 [facility] Comment on above: Performed By: #### L [id number] #### Fruit Peeler: LENORE ESCOBAR ([id number]) [facility] ([facility]) [address] [place] [address] Neutrophils (Bld) [#/Vol] 3.0 10*3/uL Normal 1.8-7.0 [facility] Comment on above: Performed By: #### L [id number] #### Fruit Peeler: LENORE ESCOBAR ([id number]) [facility] ([facility]) [address] [place] [address] Neutrophils/100 WBC (Bld) 56.0 % Normal 40.0-80.0 [facility] Comment on above: Performed By: #### L [id number] #### Fruit Peeler: LENORE ESCOBAR ([id number]) [facility] ([facility]) [address] [place] [address] Platelet mean volume (Bld) [Entitic vol] 9.1 fL Normal 7.4-12.4 [facility] Comment on above: Result Comment: MPV is a calculated measurement using platelet volume ratio Performed By: #### L [id number] #### Fruit Peeler: LENORE ESCOBAR ([id number]) [facility] ([facility]) [address] [place] [address] PLATELETS (10*3/UL) IN BLOOD AUTOMATED COUNT 243 10*3/uL Normal 140-440 [facility] Comment on above: Performed By: #### L [id number] #### Fruit Peeler: LENORE ESCOBAR ([id number]) [facility] ([facility]) [address] [place] [address] RBC (Bld) [#/Vol] 4.52 10*6/uL Normal 4.40-5.90 [facility] Comment on above: Performed By: #### L [id number] #### Fruit Peeler: LENORE ESCOBAR ([id number]) [facility] ([facility]) [address] [place] [address] WBC (Bld) [#/Vol] 5.4 10*3/uL Normal 3.6-10.7 [facility] Comment on above: Performed By: #### L [id number] #### Fruit Peeler: LENORE ESCOBAR ([id number]) [facility] ([facility]) [address] [place] [address] COMPLETE URINALYSISon 2022 BILIRUBIN, TOTAL PRESENCE IN URINE Negative Normal Negative [facility] Comment on above: Performed By: #### L [id number] #### Fruit Peeler: LENORE ESCOBAR ([id number]) [facility] ([facility]) [address] [place] [address] Clarity (U) Clear Normal Clear [facility] Comment on above: Performed By: #### L [id number] #### Fruit Peeler: LENORE ESCOBAR ([id number]) [facility] ([facility]) [address] [place] [address] Color (U) Light Yellow Normal Lt. Yellow [facility] Comment on above: Performed By: #### L [id number] #### Fruit Peeler: LENORE ESCOBAR ([id number]) [facility] ([facility]) [address] [place] [address] GLUCOSE (MG/DL) IN URINE Normal Normal Nor mal (<70) [facility] Comment on above: Performed By: #### L [id number] #### Fruit Peeler: LENORE ESCOBAR ([id number]) [facility] ([facility]) [address] [place] [address] HEMOGLOBIN PRESENCE IN URINE Negative Normal Negative [facility] Comment on above: Performed By: #### L [id number] #### Fruit Peeler: LENORE ESCOBAR ([id number]) [facility] ([facility]) [address] [place] [address] Ketones Ql (U) Negative Normal Negative [facility] Comment on above: Performed By: #### L [id number] #### Fruit Peeler: LENORE ESCOBAR ([id number]) [facility] ([facility]) [address] [place] [address] [place] LEUKOCYTE ESTERASE PRESENCE IN URINE BY TEST STRIP Negative Normal Negative [facility] Comment on above: Performed By: #### L [id number] #### Fruit Peeler: LENORE ESCOBAR ([id number]) [facility] ([facility]) [address] [place] [address] NITRITE PRESENCE IN URINE Negative Normal Negative [facility] Comment on above: Performed By: #### L [id number] #### Fruit Peeler: LENORE ESCOBAR ([id number]) [facility] ([facility]) [address] [place] [address] pH (U) 5.5 [pH] Normal 5.0-8.0 [facility] Comment on above: Performed By: #### L [id number] #### Fruit Peeler: LENORE ESCOBAR ([id number]) [facility] ([facility]) [address] [place] [address] Protein (U) [Mass/Vol] Negative Normal Negative [facility] Comment on above: Performed By: #### L [id number] #### Fruit Peeler: LENORE ESCOBAR ([id number]) [facility] ([facility]) [address] [place] [address] Specific gravity (U) [Rel density] 1.016 Normal 1.005-1.030 [facility] Comment on above: Performed By: #### L [id number] #### Fruit Peeler: LENORE ESCOBAR ([id number]) [facility] ([facility]) [address] [place] [address] UROBILINOGEN (MG/DL) IN URINE Normal Normal Normal (0-1) [facility] Comment on above: Performed By: #### L [id number] #### Fruit Peeler: LENORE ESCOBAR ([id number]) [facility] ([facility]) [address] [place] [address] ED Nursing Noteon 12-22-2022 ED Nursing Note Informed Dr. Rodas s the pt was prescribed Cipro yesterday by Dr. Basilio. Pt had not previously mentioned this to ED providers. Dr. Negron at bedside again speaking with pt. Estefany Dunlap, RN 12/22/22 0890 Normal [facility] ED Nursing Note Pt ambulatory to ED3 [...] He states he saw Dr. Perales (per [facility] he went to the office and had a negative UA 12/18 but no record of an actual visit with Dr. Perales) and pt seems upset it was not sent for culture. Per [facility] the pt placed calls to the office/[facility] stating he needed IV abx specifically but was advised this is not indicated for negative UA. He then saw Dr. Basilio in [place] yesterday and had another UA as well [...] distress noted. Pt negative/irritable during triage. Normal [facility] ED Provider Noteon ED Provider Note EMERGENCY [...] culture pending KUB and ultrasound unremarkable per [facility]. Patient is concerned that he [...] gland and craniopharyngeal duct (pouch) ([facility]) Chest pain, unspecified Chills 05/28/2022 Chronic flank pain Chronic pain Diverticulitis DVT (deep venous thrombosis) ([facility]) 2022 left leg Esophageal reflux Essential [...] ALLERGIES Meperidine (more content not included)... Normal [facility] LACTIC ACID WITH REFLEXon Lactate [Moles/Vol] 1.2 mmol/L Normal 0.7-2.0 [facility] Comment on above: Performed By: #### L [id number] #### Fruit Peeler: LENORE ESCOBAR ([id number]) [facility] ([facility]) [address] [place] [address] Laboratory - Chemistry and C hemistry - challengeon 12-22-2022 Lactate [Moles/Vol] 1.2 mmol/L 0.7 - 2. 0 mmol/L [facility] No Panel Informationon 12-22 Interpretation and review of laboratory results Normal [facility] Urinalysis complete panel (U )on 12-22-2022 Bilirubin Ql (U) Negative Negative mg/dL [facility] Clarity (U) Clear Clear [facility] Color (U) Light Yellow Lt. Yellow [facility] Glucose Ql (U) Normal Normal (<70) mg/dL [facility] Hemoglobin Ql (U) Negative Negative mg/dL [facility] Interpretation and review of laboratory results Normal [facility] Ketones (U) [Mass/Vol] Negative Negat bharathi mg/dL [facility] Leukocyte esterase Test strip Ql (U) Negative Negative Irina/uL [facility] Nitrite Ql (U) Negative Negative [facility] th pH (U) 5.5 [pH] 5.0 - 8.0 pH [facility] Protein (U) [Mass/Vol] Negative Negat bharathi mg/dL [facility] Specific gravity (U) [Rel density] 1.016 1.005 - 1.030 [facility] Urobilinogen (U) [Mass/Vol] Normal Normal (0-1) mg/dL [facility] 36on 12-21-2022 36 S: Patient spoke bhargav [facility] nurse regarding kidney infection B: Onset of [...] or awakens from sleep) Protocols used: Flank [id number] Normal [facility] Office Visiton 12-21-2022 Follow-up visit [id number] [place] 1960 M Date Provider Department Center 12/21/2022 [id number] ERICKSON [facility] Family History Adopted: Yes Problem Relation Age of Onset No Known Problems Father Cancer Mother Comments: lung Family Status - Relation Status Age at Father Mother Level of Service:58204 NE OFFICE/OUTPATIENT ESTABLISHED LOW [facility] 20-29 MIN Reason for Visit and Comments: OTHER [Other] - Pain right side back Normal [facility] Progress Noteon 12-21-2022 Progress Note [facility] [address] [address] [facility] [address] Dept: [phone] Dept Loc: [phone] Visit type: Established patient Reason for Visit: [...] gland and craniopharyngeal duct (pouch) ([facility]) Chest pain, unspecified Chills 05/28/2022 Diverticulitis DVT (deep venous thrombosis) ([facility]) 2022 left leg Esophageal reflux Essential [...] (109 kg (more content not included)... Normal [facility] US RETROPERITONEALon 023 US RETROPERITONEAL Patient Name: [...] Electronically Signed Date/Time: 12/21/2022 1:07 PM EDT [facility] Retroperitoneumon 023 No hydronephrosis or echogenic shadowing renal calculi. Bilateral renal cysts including right parapelvic cyst and left simple cortical cysts. Report Dictated on Electronically Signed By: Jesús Danielson MD Electronically Signed Date/Time: 12/21/2022 1:07 PM EDT [facility] Patient Name: CORRIE QUEEN : 1960 Exam [...] upper pole. Bladder: Underdistended and suboptimally assessed. [facility] Jesús Danielson MD - 12/21/2022 Patient Name: CORRIE QUEEN : 1960 [id number] Exam Date/Time: 12/21/2022 13:05 Procedure: US RETROPERITONEAL [...] Electronically Signed Date/Time: 12/21/2022 1:07 PM EDT [facility] Radiology Study observation (narrative) [facility] alth US RetroperitoneumOrdered By : Jesús Danielson on 12-21-2022 [facility] [employer] Work Phone: XR Abdomen Single viewon Gas-filled [...] Electronically Signed Date/Time: 12/21/2022 1:08 PM EDT [facility] Patient Name: CORRIE QUEEN : 1960 Exam Date/Time: 12/21/2022 12:51 Procedure: XR ABDOMEN 1 VIEW Ordering Provider: BASILIO MICHAEL Reason For Exam: R flank pain ABDOMEN, 1 VIEW. CLINICAL INFORMATION: Right flank pain TECHNIQUE: Supine abdomen, 2 image(s) COMPARISON: Concurrent ultrasound 12/21/2022, CT 09/14/2022 RESULT: See impression. [facility] Jesús Danielson MD - 12/21/2022 Patient Name: [...] Electronically Signed Date/Time: 12/21/2022 1:08 PM EDT [facility] [employer] Radiology Study observation (narrative) [facility] alth XR Abdomen Single viewOrdere d By: Jesús Danielson on 12-21-2022 [employer] Work Phone: 36on 12-18-2022 36 Novawiset message sent Normal [facility] 36 Please schedule visi t to discuss. Thanks [facility] 36on 12-17-2022 36 S: Patient spoke wit [...] call back with new or worsening symptoms. [facility] 36 . Reason for Disposition MODERATE pain (e.g., interferes with normal activities or awakens from sleep) Protocols used: Flank [id number] [facility] 36 Notified Corrie. [facility] 36 Urine is completely clear, there is no blood or white blood cells in his urine I am not sure why he is having his pain. This does not look like any type of urinary tract infection. To see urology if he continues to have problems, I have nothing else to offer him at this time. [facility] 36 Pt reported that he was scheduled with urology last week but missed the appointment d/t needing to be seen for the blood clot. Advised him we need to get him in with urology chance after his surgery. UA results on your desk and order pended. [facility] 36 Patient stopped in and said he [...] issue he is having fixed before then. [facility] Urinalysis macro (dipstick) panel (U)on 12-17-2022 Bilirubin, UA Negative [facility] h Blood, UA Negative [facility] Glucose, UA Negative [facility] Interpretation and review of laboratory results Normal [facility] Ketones, UA Negative [facility] Leukocytes, UA Negative [facility] Nitrite, UA Negative [facility] pH, UA 6.0 [facility] Protein, UA Negative [facility] Spec Grav, UA 1.030 [facility] Urobilinogen, UA 0.2 [facility] He alth [facility] ECG 12-LEADon 12-16-2022 ECG 12-LEAD IMPRESSION: Sinus bradycardia Inferior infarct, old Electronically Signed On 12-16-2022 14:01:05 EDT by Alyssa Ag Normal [facility] 36on 12-14-[address] lung screen at this time due to having other health issues that he is dealing with right now. 12/14/22 SK Normal [facility] BASIC METABOLIC PANELon 11-25 Anion gap [Moles/Vol] 9 mmol/L Normal 3-13 [facility] Comment on above: Performed By: #### L [id number] #### Fruit Peeler: LENORE ESCOBAR ([id number]) [facility]) [address] [place] [address] Calcium [Mass/Vol] 11.2 mg/dL High 8.4-10.4 [facility] Comment on above: Performed By: #### L [id number] #### Fruit Peeler: LENORE ESCOBAR ([id number]) [facility]) [address] [place] [address] Chloride [Moles/Vol] 105 mmol/L Normal 98-107 [facility] Comment on above: Performed By: #### L [id number] #### Fruit Peeler: LENORE ESCOBAR ([id number]) [facility] ([facility]) [address] [place] [address] [place] CO2 [Moles/Vol] 25 mmol/L Normal 22-30 [facility] Comment on above: Performed By: #### L [id number] #### Fruit Peeler: LENORE ESCOBAR ([id number]) [facility]) [address] [place] [address] Creatinine [Mass/Vol] 1.53 mg/dL High 0.66-1.25 [facility] Comment on above: Performed By: #### L [id number] #### Fruit Peeler: LENORE ESCOBAR ([id number]) [facility] ([facility]) [address] [place] [address] GLOMERULAR FILTRATION RATE ML/MIN/1.73 SQ M.PREDICTED 51.4 mL/min/1.73m*2 Low >60.0 [facility] Comment on above: Result Comment: Calc ulation based on the Chronic Kidney Disease Epidemiology Collaboration (CKD-EPI) equation refit without adjustment for race Performed By: #### L [id number] #### Fruit Peeler: LENORE ESCOBAR ([id number]) [facility] ([facility]) [address] [place] [address] Glucose [Mass/Vol] 103 mg/dL High 70-100 [facility] Comment on above: Performed By: #### L [id number] #### Fruit Peeler: LENORE ESCOBAR ([id number]) [facility]) [address] [place] [address] Potassium [Moles/Vol] 5.1 mmol/L Normal 3.5-5.1 [facility] Comment on above: Performed By: #### L [id number] #### Fruit Peeler: LENORE ESCOBAR ([id number]) [facility] ([facility]) [address] [place] [address] Sodium [Moles/Vol] 139 mmol/L Normal 135-145 [facility] Comment on above: Performed By: #### L [id number] #### Fruit Peeler: LENORE ESCOBAR ([id number]) [facility]) [address] [place] [address] Urea nitrogen [Mass/Vol] 20 mg/dL Normal 9-20 [facility] Comment on above: Performed By: #### L [id number] #### Fruit Peeler: LENORE ESCOBAR ([id number]) [facility]) [address] [place] [address] BLOOD TYPE AND SCREEN GELon 12-13-2022 ABO GROUPING O Normal [facility] Comment on above: Performed By: #### L [id number] #### Fruit Peeler: LENORE ESCOBAR ([id number]) [facility] ([facility]) [address] [place] [address] RH TYPE IN BLOOD Positive Normal [facility] Comment on above: Performed By: #### L [id number] #### Fruit Peeler: LENORE ESCOBAR ([id number]) [facility] ([facility]) [address] [place] [address] CBC (HEMOGRAM)on 12-13-2022 Erythrocyte distribution width (RBC) [Ratio] 15.3 % High 11.5-14.5 [facility] Comment on above: Performed By: #### L [id number] #### Fruit Peeler: LENORE ESCOBAR ([id number]) [facility] ([facility]) [address] [place] [address] ERYTHROCYTE MEAN CORPUSCULAR HEMOGLOBIN CONCENTRATION (G/DL) BY AUTOMATED 33.2 % Normal 32.0-36.0 [facility] Comment on above: Performed By: #### L [id number] #### Fruit Peeler: LENORE ESCOBAR ([id number]) [facility] ([facility]) [address] [place] [address] Hematocrit (Bld) [Volume fraction] 43.8 % Normal 40.0-52.0 [facility] Comment on above: Performed By: #### L [id number] #### Fruit Peeler: LENORE ESCOBAR ([id number]) [facility]) [address] [place] [address] Hemoglobin (Bld) [Mass/Vol] 14.5 g/dL Normal 13.0-18.0 [facility] Comment on above: Performed By: #### L [id number] #### Fruit Peeler: LENORE ESCOBAR ([id number]) [facility] ([facility]) [address] [place] [address] MCH (RBC) [Entitic mass] 30.9 pg Normal 26.0-34.0 [facility] Comment on above: Performed By: #### L [id number] #### Fruit Peeler: LENORE ESCOBAR ([id number]) [facility] ([facility]) [address] [place] [address] MCV (RBC) [Entitic vol] 92.8 fL Normal 80.0-98.0 S [facility] Comment on above: Performed By: #### L [id number] #### Fruit Peeler: LENORE ESCOBAR ([id number]) [facility] [address] [place] [address] Platelet mean volume (Bld) [Entitic vol] 7.7 fL Normal 7.4-12.4 [facility] Comment on above: Performed By: #### L [id number] #### Fruit Peeler: LENORE ESCOBAR ([id number]) [facility] ([facility]) [address] [place] [address] PLATELETS (10*3/UL) IN BLOOD AUTOMATED COUNT 235 10*3/uL Normal 140-440 [facility] Comment on above: Performed By: #### L [id number] #### Fruit Peeler: LENORE ESCOBAR ([id number]) [facility] ([facility]) [address] [place] [address] RBC (Bld) [#/Vol] 4.71 10*6/uL Normal 4.40-5.90 [facility] Comment on above: Performed By: #### L [id number] #### Fruit Peeler: LENORE ESCOBAR ([id number]) [facility] ([facility]) [address] [place] [address] WBC (Bld) [#/Vol] 5.5 10*3/uL Normal 3.6-10.7 [facility] Comment on above: Performed By: #### L [id number] #### Fruit Peeler: LENORE ESCOBAR ([id number]) [facility] ([facility]) [address] [place] [address] PREPROCINSon 12-13-2022 PREPROCINS Medication List Accurate as [...] your scheduled surgery time. Please bring your [facility] Surgical folder and medication list with you day of surgery. We encourage you to write down any questions you may have for the surgeon, anesthesiologist, or other members of the surgical team and bring it with you the day of surgery. Please bring photo ID and insurance information. PSYCH THERAPIST AND PARKING IN THE MAIN DECK ARE [...] THE SAME DAY DESK AND CHECK IN. [facility] 36on 12-12-2022 36 SURGERY: LEFT ILIOFEMORAL DVT THROMBECTOMY AND STENTING 1 DATE OF SURGERY: 12/25/2022 10:30 AM PRE TESTIN12/13/2022 10:00 AM AUTH #: [id number] CARDIAC CLEARANCE NOT NEEDED POST OP OR OV: 01/07/2023 2:45 PM MEDS TO HOLD: NONE PT STATES NOT TAKING FUROSEMIDE MEDS TO CONTINUE: XARELTO DO NOT STOP [facility] 36 Noted and thank you. [facility] 36 Patient is currently scheduled for: Left Iliofemoral Deep Vein Thrombosis Thrombectomy & Stenting on 11/2722 at 1:30 pm. Patient would like to speak with Dr. Arauz in regards to his case waiting until 12/21/22. He stated he does not understand why this is not being done sooner. Patient can be reached at [phone] [facility] No Panel Informationon 12-11 Occlusive subacute DVT [...] to bowel gas. Visualized segments appear patent. 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 During the study longitudinal and transverse views were obtained. Pulsed wave doppler was performed. The exam was performed with the patient in the supine position. Overall the study quality was adequate. Study was technically difficult due to: bowel gas. CV CPACS Office Visiton 12-10-2022 Follow-up visit [id number] [place] 1960 M Date Provider Department Center 12/10/2022 [id number] ARAUZ [facility] None Family History Adopted: Yes Problem Relation Age of Onset No Known Problems Father Cancer Mother Comments: lung Family Status - Relation Status Age at Father Mother Level of Service:88371 NE OFFICE/OUTPATIENT ESTABLISHED MOD [facility] 30-39 MIN Reason for Visit and Comments: Follow-up [[id number]] - [facility] 12/07 ED follow up, possible LLE thrombectomy [facility] Progress Noteon 12-10-2022 Progress Note Chart reviewed of ED follow up Seen in [facility] ED on 12/07/2022 Reason: Deep vein thrombosis [...] 12/09/[address] Davonte SANDERSON Vascular Surgery. [facility] Progress Note Vascular Surgery Office Visit Chief Complaint Patient presents with Follow-up [facility] 12/07 ED follow up, possible LLE thrombectomy candidate (Per [facility]/chain person surgeon) HISTORY OF PRESENT ILLNESS: The patient [...] Transportation (Medical): No (more content not included)... [facility] [facility] ED Nursing Noteon 12-07-2022 ED Nursing Note Surgery resident at bedside. Lorena Castillo RN 12/07/[address] [facility] ED Nursing Note Vascular at bedside. Lorena Castillo RN 12/07/[address] [facility] ED Nursing Note Pt ambulated to restroom with steady and even gait. Lorena Castillo RN 12/07/[address] [facility] ED Nursing Note Report from GARY Becerril. Lorena Castillo RN 12/07/[address] [facility] ED Nursing Note Bed: 06 Expected date: Expected time: Means of arrival: Comments: Triage Munira Mcgregor RN 12/07/[address] [facility] ED Provider Noteon ED Provider Note Emergency [...] [employer] Yolanda Patel DO 12/07/[address] [facility] ED Provider Note EMERGENCY DEPARTMENT ENCOUNTER Pt [...] and instructed to follow-up. Patient was in [place] this last week when the pain and swelling increased. He reported to the ED in [place] at which time he had an EKG and another ultrasound of his leg showing that the clots were still there. Patient arrived back to [place] last night and states that he spoke [...] tablet Rickey (more content not included)... Normal [facility] 36on 12-03-2022 36 I called pt to offer OV with Dr. Arauz today for extensive LLE DVT extending to iliac vein. Pt is in [place] and is in severe pain and has extreme swelling where his leg is twice the size. I told him to go to ED down there in [place] and he declined. He states he will go to the [facility] ED in [place] when he returns on Saturday. Normal [facility] 36 S: Patient spoke wit h [facility] nurse regarding acute deep vein thrombosis [...] nurse I am at the coast in [place] and will not return to [place] until Saturday. Again, highly encouraged patient to seek evaluation in an emergency room in [place] per the physician's recommendations. Discussed blood clots [...] vein thrombosis, pulmonary embolism) Protocols used: Leg [id number] [facility] No Panel Informationon 11-14 Acute extensive DVT [...] on 10/15/2022. No change from previous exam. Employee Benefits Insurance Agent Details A conroy scale, color Doppler imaging, [...] [#/Vol] 0.1 10*3/uL 0.0 - 0.2 10*3/uL [facility] Basophils/100 WBC (Bld) 1.0 % 0.0 - 2.0 % [facility] Eosinophils (Bld) [#/Vol] 0.4 10*3/uL 0. 0 - 0.5 10*3/uL [facility] Eosinophils/100 WBC (Bld) 4.9 % 1.0 - 6.0 % [facility] Erythrocyte distribution width (RBC) [Ratio] 13.0 % 11.5 - 14.5 % [facility] Hematocrit (Bld) [Volume fraction] 39.0 % Low 40.0 - 52.0 % [facility] Hemoglobin (Bld) [Mass/Vol] 13.5 g/dL 13.0 - 18.0 g/dL [facility] Interpretation and review of laboratory results Abnormal [facility] th Lymphocytes (Bld) [#/Vol] 2.0 10*3/uL 1. 0 - 4.3 10*3/uL [facility] Lymphocytes/100 WBC (Bld) 24.5 % 20 .0 - 40.0 % [facility] MCH (RBC) [Entitic mass] 31.0 pg 26. 0 - 34.0 pg [facility] MCHC (RBC) [Mass/Vol] 34.6 % 32.0 - 36.0 % [facility] MCV (RBC) [Entitic vol] 89.6 fL 80.0 - 98.0 fL [facility] Monocytes (Bld) [#/Vol] 0.8 10*3/uL 0.0 - 0.8 10*3/uL [facility] Monocytes/100 WBC (Bld) 10.4 % High 2.0 - 10.0 % [facility] Neutrophils (Bld) [#/Vol] 4.7 10*3/uL 1. 8 - 7.0 10*3/uL [facility] Neutrophils/100 WBC (Bld) 59.2 % 40 .0 - 80.0 % [facility] Nucleated RBC/100 WBC (Bld) [Ratio] 0.0 % [facility] Platelet mean volume (Bld) [Entitic vol] 7.0 fL Low 7.4 - 12.4 fL [facility] Platelets (Bld) [#/Vol] 277 10*3/uL 140 - 440 10*3/uL [facility] RBC (Bld) [#/Vol] 4.36 10*6/uL Low 4.40 - 5.9 0 10*6/uL [facility] WBC (Bld) [#/Vol] 8.0 10*3/uL 3.6 - 10.7 10*3/uL [facility] Comprehensive metabolic 1998 panelon 10-16-2022 Albumin [Mass/Vol] 3.9 g/dL 3.5 - 5.0 g/dL [facility] ALP [Catalytic activity/Vol] 54 U/L 38 - 126 U/L [facility] ALT [Catalytic activity/Vol] 11 U/L 0 - 49 U/L [facility] Anion gap [Moles/Vol] 7 mmol/L 3 - 13 mmol/L [facility] AST [Catalytic activity/Vol] 20 U/L 15 - 46 U/L [facility] Bilirubin [Mass/Vol] 0.5 mg/dL 0.2 - 1 .3 mg/dL [facility] Calcium [Mass/Vol] 9.9 mg/dL 8.4 - 10. 4 mg/dL [facility] Chloride [Moles/Vol] 104 mmol/L 98 - 10 7 mmol/L [facility] CO2 [Moles/Vol] 24 mmol/L 22 - 30 mmol/L [facility] Creatinine [Mass/Vol] 1.03 mg/dL 0.66 - 1.25 mg/dL [facility] GFR/1.73 sq M.predicted MDRD (S/P/Bld) [Vol rate/Area] 82.6 mL/min/{1.73_m2} - PINF [facility] Comment on above: Calculation based on the Chronic Kidney Disease Epidemiology Collaboration (CKD-EPI) equation refit without adjustment for race Glucose [Mass/Vol] 95 mg/dL 70 - 100 mg/dL [facility] Interpretation and review of laboratory results Normal [facility] Potassium [Moles/Vol] 3.9 mmol/L 3.5 - 5.1 mmol/L [facility] Protein [Mass/Vol] 7.1 g/dL 6.3 - 8.2 g/dL [facility] Sodium [Moles/Vol] 135 mmol/L 135 - 145 mmol/L [facility] Urea nitrogen [Mass/Vol] 15 mg/dL 9 - 20 mg/dL [facility] CBC W Auto Differential pane l (Bld)Ordered By: Jaswant Mendoza on 10-15-2022 Basophils (Bld) [#/Vol] 0.1 10*3/uL 0.0 - 0.2 10*3/uL [facility] Basophils/100 WBC (Bld) 1.1 % 0.0 - 2.0 % [facility] Eosinophils (Bld) [#/Vol] 0.4 10*3/uL 0. 0 - 0.5 10*3/uL [facility] Eosinophils/100 WBC (Bld) 4.6 % 1.0 - 6.0 % [facility] Erythrocyte distribution width (RBC) [Ratio] 13.2 % 11.5 - 14.5 % [facility] Hematocrit (Bld) [Volume fraction] 38.8 % Low 40.0 - 52.0 % [facility] Hemoglobin (Bld) [Mass/Vol] 13.3 g/dL 13.0 - 18.0 g/dL [facility] Interpretation and review of laboratory results Abnormal [facility] th Lymphocytes (Bld) [#/Vol] 1.3 10*3/uL 1. 0 - 4.3 10*3/uL [facility] Lymphocytes/100 WBC (Bld) 14.7 % Low 20 .0 - 40.0 % [facility] MCH (RBC) [Entitic mass] 30.9 pg 26. 0 - 34.0 pg [facility] MCHC (RBC) [Mass/Vol] 34.4 % 32.0 - 36.0 % [facility] MCV (RBC) [Entitic vol] 89.9 fL 80.0 - 98.0 fL [facility] Monocytes (Bld) [#/Vol] 1.0 10*3/uL High 0.0 - 0.8 10*3/uL [facility] Monocytes/100 WBC (Bld) 11.0 % High 2.0 - 10.0 % [facility] Neutrophils (Bld) [#/Vol] 6.1 10*3/uL 1. 8 - 7.0 10*3/uL [facility] Neutrophils/100 WBC (Bld) 68.6 % 40 .0 - 80.0 % [facility] Nucleated RBC/100 WBC (Bld) [Ratio] 0.0 % [facility] Platelet mean volume (Bld) [Entitic vol] 6.9 fL Low 7.4 - 12.4 fL [facility] [employer] Platelets (Bld) [#/Vol] 272 10*3/uL 140 - 440 10*3/uL [facility] [employer] RBC (Bld) [#/Vol] 4.32 10*6/uL Low 4.40 - 5.9 0 10*6/uL [facility] [employer] WBC (Bld) [#/Vol] 8.8 10*3/uL 3.6 - 10.7 10*3/uL [facility] CT Head WO contraston [address] examination of the brain. Report Dictated on Electronically Signed By: Noe Medina DO Electronically Signed Date/Time: 10/15/2022 2:57 PM EDT [facility] [employer] Patient Name: CORRIE QUEEN : 1960 [...] are unremarkable. The paranasal sinuses are clear. [facility] [employer] Noe Medina DO - 10/15/2022 Patient [...] Electronically Signed Date/Time: 10/15/2022 2:57 PM EDT [facility] Radiology Study observation (narrative) [facility] alyssa CT Head WO contrastOrdered B y: Noe Medina on 10-15-2022 [facility] Work Phone: Comprehensive metabolic 1998 panelon 10-15-2022 Albumin [Mass/Vol] 3.8 g/dL 3.5 - 5.0 g/dL [facility] ALP [Catalytic activity/Vol] 54 U/L 38 - 126 U/L [facility] ALT [Catalytic activity/Vol] 11 U/L 0 - 49 U/L [facility] Anion gap [Moles/Vol] 8 mmol/L 3 - 13 mmol/L [facility] AST [Catalytic activity/Vol] 19 U/L 15 - 46 U/L [facility] Bilirubin [Mass/Vol] 0.5 mg/dL 0.2 - 1 .3 mg/dL [facility] Calcium [Mass/Vol] 9.8 mg/dL 8.4 - 10. 4 mg/dL [facility] Chloride [Moles/Vol] 104 mmol/L 98 - 10 7 mmol/L [facility] CO2 [Moles/Vol] 26 mmol/L 22 - 30 mmol/L [facility] Creatinine [Mass/Vol] 1.06 mg/dL 0.66 - 1.25 mg/dL [facility] GFR/1.73 sq M.predicted MDRD (S/P/Bld) [Vol rate/Area] 79.8 mL/min/{1.73_m2} - PINF [facility] Comment on above: Calculation based on the Chronic Kidney Disease Epidemiology Collaboration (CKD-EPI) equation refit without adjustment for race Glucose [Mass/Vol] 105 mg/dL High 70 - 100 mg/dL [facility] Interpretation and review of laboratory results Abnormal [facility] Potassium [Moles/Vol] 4.1 mmol/L 3.5 - 5.1 mmol/L [facility] Protein [Mass/Vol] 7.1 g/dL 6.3 - 8.2 g/dL [facility] Sodium [Moles/Vol] 137 mmol/L 135 - 145 mmol/L [facility] Urea nitrogen [Mass/Vol] 16 mg/dL 9 - 20 mg/dL [facility] Laboratory - Chemistry and C hemistry - challengeon 10-15-2022 Glucose [Mass/Vol] 98 mg/dL 70 - 100 mg/dL [facility] No Panel Informationon 10-15 Interpretation and review of laboratory results Normal [facility] Performed by: [facility], [address] [place] [address] CLIA ID: [id number] [facility] Acute extensive DVT in the left [...] right common femoral vein is normally compressible. 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 0 - 0.5 10*3/uL [facility] Eosinophils/100 WBC (Bld) 7.1 % High 1.0 - 6.0 % [facility] Erythrocyte distribution width (RBC) [Ratio] 13.4 % 11.5 - 14.5 % [facility] Hematocrit (Bld) [Volume fraction] 37.0 % Low 40.0 - 52.0 % [facility] Hemoglobin (Bld) [Mass/Vol] 12.7 g/dL Low 13.0 - 18.0 g/dL [facility] Interpretation and review of laboratory results Abnormal [facility] th Lymphocytes (Bld) [#/Vol] 2.1 10*3/uL 1. 0 - 4.3 10*3/uL [facility] Lymphocytes/100 WBC (Bld) 26.2 % 20 .0 - 40.0 % [facility] MCH (RBC) [Entitic mass] 31.2 pg 26. 0 - 34.0 pg [facility] MCHC (RBC) [Mass/Vol] 34.3 % 32.0 - 36.0 % [facility] MCV (RBC) [Entitic vol] 90.9 fL 80.0 - 98.0 fL [facility] Monocytes (Bld) [#/Vol] 0.9 10*3/uL High 0.0 - 0.8 10*3/uL [facility] Monocytes/100 WBC (Bld) 11.1 % High 2.0 - 10.0 % [facility] Neutrophils (Bld) [#/Vol] 4.5 10*3/uL 1. 8 - 7.0 10*3/uL [facility] Neutrophils/100 WBC (Bld) 55.0 % 40 .0 - 80.0 % [facility] Nucleated RBC/100 WBC (Bld) [Ratio] 0.0 % [facility] Platelet mean volume (Bld) [Entitic vol] 7.8 fL 7.4 - 12.4 fL [facility] Platelets (Bld) [#/Vol] 255 10*3/uL 140 - 440 10*3/uL [facility] RBC (Bld) [#/Vol] 4.08 10*6/uL Low 4.40 - 5.9 0 10*6/uL [facility] WBC (Bld) [#/Vol] 8.2 10*3/uL 3.6 - 10.7 10*3/uL [facility] Comprehensive metabolic 1998 panelon 10-14-2022 Albumin [Mass/Vol] 3.7 g/dL 3.5 - 5.0 g/dL [facility] ALP [Catalytic activity/Vol] 53 U/L 38 - 126 U/L [facility] ALT [Catalytic activity/Vol] 11 U/L 0 - 49 U/L [facility] Anion gap [Moles/Vol] 8 mmol/L 3 - 13 mmol/L [facility] AST [Catalytic activity/Vol] 18 U/L 15 - 46 U/L [facility] Bilirubin [Mass/Vol] 0.4 mg/dL 0.2 - 1 .3 mg/dL [facility] Calcium [Mass/Vol] 9.9 mg/dL 8.4 - 10. 4 mg/dL [facility] Chloride [Moles/Vol] 105 mmol/L 98 - 10 7 mmol/L [facility] CO2 [Moles/Vol] 26 mmol/L 22 - 30 mmol/L [facility] Creatinine [Mass/Vol] 1.15 mg/dL 0.66 - 1.25 mg/dL [facility] GFR/1.73 sq M.predicted MDRD (S/P/Bld) [Vol rate/Area] 72.4 mL/min/{1.73_m2} - PINF [facility] Comment on above: Calculation based on the Chronic Kidney Disease Epidemiology Collaboration (CKD-EPI) equation refit without adjustment for race Glucose [Mass/Vol] 90 mg/dL 70 - 100 mg/dL [facility] Interpretation and review of laboratory results Normal [facility] Potassium [Moles/Vol] 4.4 mmol/L 3.5 - 5.1 mmol/L [facility] Protein [Mass/Vol] 6.4 g/dL 6.3 - 8.2 g/dL [facility] Sodium [Moles/Vol] 138 mmol/L 135 - 145 mmol/L [facility] Urea nitrogen [Mass/Vol] 17 mg/dL 9 - 20 mg/dL [facility] Laboratory - Chemistry and C hemistry - challengeon 10-14-2022 Parathyrin.intact [Mass/Vol] 39.0 pg/mL 7.5 - 53.5 pg/mL [facility] Parathyrin.intact [Mass/Vol] on 10-14-2022 Interpretation and review of laboratory results Normal [facility] Basic metabolic 1998 panelon 10-12-2022 Anion gap [Moles/Vol] 12 mmol/L 3 - 13 mmol/L [facility] Calcium [Mass/Vol] 11.1 mg/dL High 8.4 - 10. 4 mg/dL [facility] Chloride [Moles/Vol] 104 mmol/L 98 - 10 7 mmol/L [facility] CO2 [Moles/Vol] 21 mmol/L Low 22 - 30 mmol/L [facility] Creatinine [Mass/Vol] 1.45 mg/dL High 0.66 - 1.25 mg/dL [facility] GFR/1.73 sq M.predicted MDRD (S/P/Bld) [Vol rate/Area] 54.8 mL/min/{1.73_m2} Low - PINF [facility] Comment on above: Calculation based on the Chronic Kidney Disease Epidemiology Collaboration (CKD-EPI) equation refit without adjustment for race Glucose [Mass/Vol] 121 mg/dL High 70 - 100 mg/dL [facility] Interpretation and review of laboratory results Abnormal [facility] Potassium [Moles/Vol] 4.8 mmol/L 3.5 - 5.1 mmol/L [facility] Sodium [Moles/Vol] 137 mmol/L 135 - 145 mmol/L [facility] Urea nitrogen [Mass/Vol] 18 mg/dL 9 - 20 mg/dL [facility] CBC W Auto Differential pane l (Bld)Ordered By: Won Valencia on 10-12-2022 Basophils (Bld) [#/Vol] 0.1 10*3/uL 0.0 - 0.2 10*3/uL [facility] Basophils/100 WBC (Bld) 0.7 % 0.0 - 2.0 % [facility] Eosinophils (Bld) [#/Vol] 0.3 10*3/uL 0. 0 - 0.5 10*3/uL [facility] Eosinophils/100 WBC (Bld) 3.0 % 1.0 - 6.0 % [facility] Erythrocyte distribution width (RBC) [Ratio] 13.0 % 11.5 - 14.5 % [facility] Hematocrit (Bld) [Volume fraction] 43.0 % 40.0 - 52.0 % [facility] Hemoglobin (Bld) [Mass/Vol] 14.6 g/dL 13.0 - 18.0 g/dL [facility] [employer] Immature granulocytes (Bld) [#/Vol] 0.1 10*3/uL High NINF - 0.0 10*3/uL [facility] [employer] Immature granulocytes/100 WBC (Bld) 0.6 % High NINF - 0.0 % [facility] Interpretation and review of laboratory results Abnormal [facility] Lymphocytes (Bld) [#/Vol] 1.6 10*3/uL 1. 0 - 4.3 10*3/uL [facility] [employer] Lymphocytes/100 WBC (Bld) 16.4 % Low 20 .0 - 40.0 % [facility] MCH (RBC) [Entitic mass] 31.0 pg 26. 0 - 34.0 pg [facility] MCHC (RBC) [Mass/Vol] 34.0 % 32.0 - 36.0 % [facility] MCV (RBC) [Entitic vol] 91.3 fL 80.0 - 98.0 fL [facility] Monocytes (Bld) [#/Vol] 0.9 10*3/uL High 0.0 - 0.8 10*3/uL [facility] Monocytes/100 WBC (Bld) 9.3 % 2.0 - 10.0 % [facility] Neutrophils (Bld) [#/Vol] 6.9 10*3/uL 1. 8 - 7.0 10*3/uL [facility] Neutrophils/100 WBC (Bld) 70.0 % 40 .0 - 80.0 % [facility] Platelet mean volume (Bld) [Entitic vol] 9.0 fL 7.4 - 12.4 fL [facility] Comment on above: MPV is a calculated measurement using platelet volume ratio Platelets (Bld) [#/Vol] 273 10*3/uL 140 - 440 10*3/uL [facility] RBC (Bld) [#/Vol] 4.71 10*6/uL 4.40 - 5.9 0 10*6/uL [facility] WBC (Bld) [#/Vol] 9.9 10*3/uL 3.6 - 10.7 10*3/uL [facility] Laboratory - Chemistry and C hemistry - challengeon 10-12-2022 Lactate [Moles/Vol] 1.2 mmol/L 0.7 - 2. 0 mmol/L [facility] CK [Catalytic activity/Vol] 54 U/L 30 - 170 U/L [facility] No Panel Informationon 10-12 Positive for DVT throughout the left lower extremity. These findings were discussed with physician/provider PACHECO NEGRON by Secure Chat on 10/12/2022 at 3:16 PM EDT. Report Dictated on Electronically Signed By: Chan Woodard MD Electronically Signed Date/Time: 10/12/2022 3:20 PM EDT [employer] Patient Name: CORRIE QUEEN : 1960 [...] right common femoral vein is normally compressible. [facility] Chan Woodard M D - 10/12/2022 Patient [...] Electronically Signed Date/Time: 10/12/2022 3:20 PM EDT [facility] Interpretation and review of laboratory results Normal [facility] XR Tibia and Fibula - left 2 Viewson 10-12-2022 No acute osseous abnormality. Report Dictated on Electronically Signed By: Jesús Danielson MD Electronically Signed Date/Time: 10/12/2022 3:24 PM EDT [facility] Patient Name: CORRIE QUEEN : [...] body or soft tissue gas. Vascular calcifications. [facility] Jesús Danielson MD - 10/12/2022 [...] Electronically Signed Date/Time: 10/12/2022 3:24 PM EDT [facility] Radiology Study observation (narrative) [facility] alth XR Tibia and Fibula - left 2 ViewsOrdered By: Jesús Danielson on 10-12-2022 [facility] [employer] Work Phone: Urinalysis macro (dipstick) panel (U)on 09-13-2022 Bilirubin, UA Negative [facility] Blood, [facility]A Trace [facility] Glucose, UA Negative [facility] Interpretation and review of laboratory results Abnormal [facility] Ketones, UA Negative [facility] Leukocytes, UA Moderate [facility] Nitrite, UA Negative [facility] pH, UA 6.0 [facility] Protein, UA Negative [facility] Spec Grav, UA 1.030 [facility] Urobilinogen, UA 0.2 [facility] Bacteria identified Cx Nom ( U)on 08-20-2022 Interpretation and review of laboratory results Abnormal [facility] Urine culture (clean catch)o n 08-20-2022 Bacteria identified Cx Nom (U) SEE NOTE Abnormal [facility] Comment on above: CULTURE, URINE, ROUTINE Micro Number: [id number] Test Status: Final Specimen Source: Urine, clean [...] 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 Urinalysis macro (dipstick) panel (U)Ordered By: Nelli Lama on 08-17-2022 Bilirubin, UA Negative [facility] h Blood, UA Moderate [facility] Comment on above: non-hemolyzed Clarity (U) Slightly Cloudy Abnormal Clear [facility] alth Color (U) Light Yellow Lt. Yellow [facility] Glucose, UA Negative [facility] Interpretation and review of laboratory results Abnormal [facility] Ketones, UA Trace [facility] Leukocytes, UA Moderate [facility] Nitrite, UA Negative [facility] pH, UA 6.0 [facility] Protein, UA Trace [facility] Spec Grav, UA 1.015 [facility] Urobilinogen, UA 0.2 [facility] Urinalysis macro (dipstick) panel (U)on 05-17-2022 Bilirubin, UA Negative [facility] Blood, UA Trace [facility] Glucose, UA Negative [facility] Interpretation and review of laboratory results Abnormal [facility] Ketones, UA Negative [facility] Leukocytes, UA Trace [facility] Nitrite, UA Negative [facility] pH, UA 6.5 [facility] Protein, UA Negative [facility] Spec Grav, UA 1.020 [facility] Urobilinogen, UA 0.2 [facility] Urinalysis macro (dipstick) panel (U)on 03-06-2022 Bilirubin, UA Negative [facility] Blood, UA Negative [facility] Glucose, UA Negative [facility] Ketones, UA Negative [facility] Leukocytes, UA Negative [facility] Nitrite, UA Negative [facility] pH, UA 5.0 [facility] Protein, UA Negative [facility] Spec Grav, UA 1.020 [facility] Urobilinogen, UA 0.2 [facility] Basic Metabolic Panelon 10 Calcium [Mass/Vol] 9.5 mg/dL Normal 8.4-10.4 [facility] Comment on above: Performed By: #### H EMDF, TSH5, LIPD2, CMP3M #### [facility] [address] [place] [address] Anion gap [Moles/Vol] 7 mmol/L Normal 3-13 [facility] Comment on above: Performed By: #### H EMDF, TSH5, LIPD2, CMP3M #### [facility] [address] [place] [address] CO2 [Moles/Vol] 22 mmol/L Normal 22-30 [facility] Comment on above: Performed By: #### H EMDF, TSH5, LIPD2, CMP3M #### [facility] [address] [place] [address] Creatinine [Mass/Vol] 1.01 mg/dL Normal 0.52-1.25 [facility] [facility] [place] Comment on above: Performed By: #### H EMDF, TSH5, LIPD2, CMP3M #### [facility] [address] [place] [address] GFR/1.73 sq M.predicted among blacks MDRD (S/P/Bld) [Vol rate/Area] mL/min/{1.73_m2} Normal >60 [facility] Comment on above: Performed By: #### H EMDF, TSH5, LIPD2, CMP3M #### [facility] [address] [place] [address] GFR/1.73 sq M.predicted among non-blacks MDRD (S/P/Bld) [Vol rate/Area] 80.3 mL/min/{1.73_m2} Normal >60 [facility] Comment on above: Result Comment: KDIG [...] #### H EMDF, TSH5, LIPD2, CMP3M #### [facility] [address] [place] [address] Glucose [Mass/Vol] 101 mg/dL High 70-100 [facility] Comment on above: Performed By: #### H EMDF, TSH5, LIPD2, CMP3M #### [facility] [address] [place] [address] Urea nitrogen [Mass/Vol] 21 mg/dL High 7-17 [facility] Comment on above: Performed By: #### H EMDF, TSH5, LIPD2, CMP3M #### [facility] [address] [place] [address] Chloride [Moles/Vol] 107 mmol/L Normal 98-107 [facility] Comment on above: Performed By: #### H EMDF, TSH5, LIPD2, CMP3M #### [facility] [address] [place] [address] Potassium [Moles/Vol] 3.9 mmol/L Normal 3.5-5.1 [facility] Comment on above: Performed By: #### H EMDF, TSH5, LIPD2, CMP3M #### [facility] [address] [place] [address] Sodium [Moles/Vol] 135 mmol/L Normal 135-145 [facility] Comment on above: Performed By: #### H EMDF, TSH5, LIPD2, CMP3M #### [facility] [address] [place] [address] Basic Metabolic Panel w/ Ref rolanda to MGon 12-06-2021 Anion gap [Moles/Vol] 7 mmol/L 3 - 13 mmol/L [facility] Work Phone: Calcium [Mass/Vol] 9.5 mg/dL 8.4 - 10. 4 mg/dL [facility] Work Phone: Chloride [Moles/Vol] 107 mmol/L 98 - 10 7 mmol/L [facility] Work Phone: CO2 [Moles/Vol] 22 mmol/L 22 - 30 mmol/L [facility] Work Phone: Creatinine [Mass/Vol] 1.01 mg/dL 0.52 - 1.25 mg/dL [facility] Work Phone: eGFR mL/min 60 - P INF mL/min [facility] Work Phone: EGFR IF NonAfrican Syrian 80.3 mL/min 60 - PINF mL/min [facility] Work Phone: Comment on above: KDIGO guidelines [...] 101 mg/dL High 70 - 100 mg/dL [facility] Work Phone: [phone] Interpretation and review of laboratory results Abnormal [facility] Work Phone: Potassium [Moles/Vol] 3.9 mmol/L 3.5 - 5.1 mmol/L [facility] Work Phone: Sodium [Moles/Vol] 135 mmol/L 135 - 145 mmol/L [facility] Work Phone: Urea nitrogen (BldV) [Mass/Vol] 21 mg/dL High 7 - 17 mg/dL [facility] Work Phone: Test Performed by [facility] [employer] [facility], [address] [place] [id number] [facility] Work Phone: CBC with Auto Differentialon 12-06-2021 Absolute Baso # 0.1 10*3/uL 0 - 0.2 10*3/uL [facility] Work Phone: Absolute Neut # 4.6 10*3/uL 1.8 - 7 10*3/uL [facility] Work Phone: Basophils/100 WBC (Bld) 0.9 % 0 - 2 % S [facility] Work Phone: Eosinophils (Bld) [#/Vol] 2.0 10*3/uL High 0 - 0.5 10*3/uL [facility] Work Phone: Eosinophils/100 WBC (Bld) 19.5 % High 1 - 6 % [facility] Work Phone: [phone] Granulocytes/100 WBC (Bld) 44.0 % 40 - 80 % [facility] Work Phone: Hematocrit (Bld) [Volume fraction] 47.7 % 40 - 52 % [facility] Work Phone: Hemoglobin (Bld) [Mass/Vol] 16.3 g/dL 13 - 18 g/dL [facility] Work Phone: Interpretation and review of laboratory results Abnormal [facility] Work Phone: Lymphocytes (Bld) [#/Vol] 2.9 10*3/uL 1 - 4.3 10*3/uL [facility] Work Phone: Lymphocytes/100 WBC (Bld) 28.1 % 20 - 40 % [facility] Work Phone: MCH (RBC) [Entitic mass] 30.2 pg 26 - 34 pg [facility] Work Phone: MCHC (RBC) [Mass/Vol] 34.1 % 32 - 36 % [facility] Work Phone: MCV (RBC) [Entitic vol] 88.4 fL 80 - [address] [facility] Work Phone: Monocytes (Bld) [#/Vol] 0.8 10*3/uL 0 - 0.8 10*3/uL [facility] Work Phone: Monocytes/100 WBC (Bld) 7.5 % 2 - 10 % S [facility] Work Phone: Platelet distribution width (Bld) [Ratio] 13.6 % 11.5 - 14.5 % [facility] Work Phone: Platelet mean volume (Bld) [Entitic vol] 7.0 fL Low 7.4 - 12.4 fL [facility] Work Phone: Comment on above: MPV is a calculated measurement using platelet volume ratio. Platelets (Bld) [#/Vol] 275 10*3/uL 140 - 440 10*3/uL [facility] Work Phone: RBC (Bld) [#/Vol] 5.39 10*6/uL 4.4 - 5.9 10*6/uL [facility] Work Phone: WBC (Bld) [#/Vol] 10.5 10*3/uL 3.6 - 10.7 10*3/uL [facility] Work Phone: Test Performed by [facility], [address] [place] [address] [facility] Work Phone: CULTURE BLOODon 12-06-2021 Microscopic examination of blood, culture CULTURE BLOOD --> Status: P No growth at 1 day. No growth at 2 days. No growth at 3 days. No growth at 4 days. No growth at 2 days. No growth at 3 days. No growth at 4 days. Normal [facility] Comment on above: Performed By: #### C UA2 #### [facility] [address] [place] [address] CULTURE BLOOD (Two)on 2021 Microscopic examination of blood, culture CULTURE BLOOD (Two) --> Status: P No growth at 1 day. No growth at 2 days. No growth at 3 days. No growth at 4 days. No growth at 2 days. No growth at 3 days. No growth at 4 days. Normal [facility] Comment on above: Performed By: #### C UA2 #### [facility] [address] [place] [address] Hemogram w/ Autodiffon 12-06 Abs Baso Cnt 0.1 10*3/uL Normal 0.0-0.2 [facility] Comment on above: Performed By: #### H EMDF, TSH5, LIPD2, CMP3M #### [facility] [address] [place] [address] Abs Neutrophile Cnt 4.6 10*3/uL Normal 1.8-7.0 [facility] Comment on above: Performed By: #### H EMDF, TSH5, LIPD2, CMP3M #### [facility] [address] [place] [address] Basophils/100 WBC (Bld) 0.9 % Normal 0.0-2.0 [facility] Comment on above: Performed By: #### H EMDF, TSH5, LIPD2, CMP3M #### [facility] [address] [place] [address] Eosinophils (Bld) [#/Vol] 2.0 10*3/uL High 0.0-0.5 [facility] Comment on above: Performed By: #### H EMDF, TSH5, LIPD2, CMP3M #### [facility] [address] [place] [address] Eosinophils/100 WBC (Bld) 19.5 % High 1.0-6.0 [facility] Comment on above: Performed By: #### H EMDF, TSH5, LIPD2, CMP3M #### [facility] [address] [place] [address] Erythrocyte distribution width (RBC) [Ratio] 13.6 % Normal 11.5-14.5 [facility] Comment on above: Performed By: #### H EMDF, TSH5, LIPD2, CMP3M #### [facility] [address] [place] [address] Granulocytes/100 WBC (Bld) 44.0 % Normal 40.0-80.0 [facility] Comment on above: Performed By: #### H EMDF, TSH5, LIPD2, CMP3M #### [facility] [address] [place] [address] Hematocrit (Bld) [Volume fraction] 47.7 % Normal 40.0-52.0 [facility] Comment on above: Performed By: #### H EMDF, TSH5, LIPD2, CMP3M #### [facility] [address] [place] [address] Hemoglobin (Bld) [Mass/Vol] 16.3 g/dL Normal 13.0-18.0 [facility] Comment on above: Performed By: #### H EMDF, TSH5, LIPD2, CMP3M #### [facility] [address] [place] [address] Lymphocytes (Bld) [#/Vol] 2.9 10*3/uL Normal 1.0-4.3 [facility] Comment on above: Performed By: #### H EMDF, TSH5, LIPD2, CMP3M #### [facility] [address] [place] [address] Lymphocytes/100 WBC (Bld) 28.1 % Normal 20.0-40.0 [facility] Comment on above: Performed By: #### H EMDF, TSH5, LIPD2, CMP3M #### [facility] [address] [place] [address] MCH (RBC) [Entitic mass] 30.2 pg Normal 26.0-34.0 [facility] Comment on above: Performed By: #### H EMDF, TSH5, LIPD2, CMP3M #### [facility] [address] [place] [address] MCHC 34.1 % Normal 32.0-36.0 [facility] Comment on above: Performed By: #### H EMDF, TSH5, LIPD2, CMP3M #### [facility] [address] [place] [address] MCV (RBC) [Entitic vol] 88.4 fL Normal 80.0-98.0 [facility] Comment on above: Performed By: #### H EMDF, TSH5, LIPD2, CMP3M #### [facility] [address] [place] [address] Monocytes (Bld) [#/Vol] 0.8 10*3/uL Normal 0.0-0.8 [facility] Comment on above: Performed By: #### H EMDF, TSH5, LIPD2, CMP3M #### [facility] [address] [place] [address] Monocytes/100 WBC (Bld) 7.5 % Normal 2.0-10.0 [facility] Comment on above: Performed By: #### H EMDF, TSH5, LIPD2, CMP3M #### [facility] [address] [place] [address] Platelet mean volume (Bld) [Entitic vol] 7.0 fL Low 7.4-12.4 [facility] Comment on above: Result Comment: MPV is a calculated measurement using platelet volume ratio. Performed By: #### H EMDF, TSH5, LIPD2, CMP3M #### [facility] [address] [place] [address] Platelets (Bld) [#/Vol] 275 10*3/uL Normal 140-440 [facility] Comment on above: Performed By: #### H EMDF, TSH5, LIPD2, CMP3M #### [facility] [address] [place] [address] RBC (Bld) [#/Vol] 5.39 10*6/uL Normal 4.40-5.90 [facility] Comment on above: Performed By: #### H EMDF, TSH5, LIPD2, CMP3M #### [facility] [address] [place] [address] WBC (Bld) [#/Vol] 10.5 10*3/uL Normal 3.6-10.7 [facility] Comment on above: Performed By: #### H EMDF, TSH5, LIPD2, CMP3M #### [facility] [address] [place] [address] Basic Metabolic Panelon 10-1 Anion gap [Moles/Vol] 6 mmol/L Normal 3-13 [facility] Comment on above: Performed By: #### M DIFF, HEMDF, BMP3M #### [facility] [address] [place] [address] Calcium [Mass/Vol] 10.2 mg/dL Normal 8.4-10.4 [facility] Comment on above: Performed By: #### M DIFF, HEMDF, BMP3M #### [facility] [address] [place] [address] CO2 [Moles/Vol] 25 mmol/L Normal 22-30 [facility] Comment on above: Performed By: #### M DIFF, HEMDF, BMP3M #### [facility] [address] [place] [address] Glucose [Mass/Vol] 96 mg/dL Normal 70-100 [facility] Comment on above: Performed By: #### M DIFF, HEMDF, BMP3M #### [facility] [address] [place] [address] Urea nitrogen [Mass/Vol] 21 mg/dL High 7-17 [facility] Comment on above: Performed By: #### M DIFF, HEMDF, BMP3M #### [facility] [address] [place] [address] Creatinine [Mass/Vol] 1.26 mg/dL High 0.52-1.25 [facility] Comment on above: Performed By: #### M DIFF, HEMDF, BMP3M #### [facility] [address] [place] [address] GFR/1.73 sq M.predicted among blacks MDRD (S/P/Bld) [Vol rate/Area] 71.3 mL/min/{1.73_m2} Normal >60 [facility] Comment on above: Performed By: #### M DIFF, HEMDF, BMP3M #### [facility] [address] [place] [address] GFR/1.73 sq M.predicted among non-blacks MDRD (S/P/Bld) [Vol rate/Area] 61.5 mL/min/{1.73_m2} Normal >60 [facility] Comment on above: Result Comment: KDIG [...] By: #### M DIFF, HEMDF, BMP3M #### [facility] [address] [place] [address] Potassium [Moles/Vol] 4.3 mmol/L Normal 3.5-5.1 [facility] Comment on above: Performed By: #### M DIFF, HEMDF, BMP3M #### [facility] [address] [place] [address] Chloride [Moles/Vol] 105 mmol/L Normal 98-107 [facility] Comment on above: Performed By: #### M DIFF, HEMDF, BMP3M #### [facility] [address] [place] [address] Sodium [Moles/Vol] 135 mmol/L Normal 135-145 [facility] Comment on above: Performed By: #### M DIFF, HEMDF, BMP3M #### [facility] [address] [place] [address] Basic Metabolic Panel w/ Ref rolanda to MGon 12-05-2021 Anion gap [Moles/Vol] 6 mmol/L 3 - 13 mmol/L [facility] Work Phone: Calcium [Mass/Vol] 10.2 mg/dL 8.4 - 10. 4 mg/dL [facility] Work Phone: Chloride [Moles/Vol] 105 mmol/L 98 - 10 7 mmol/L [facility] Work Phone: CO2 [Moles/Vol] 25 mmol/L 22 - 30 mmol/L [facility] Work Phone: Creatinine [Mass/Vol] 1.26 mg/dL High 0.52 - 1.25 mg/dL [facility] Work Phone: EGFR IF NonAfrican Syrian 61.5 mL/min 60 - PINF mL/min [facility] Work Phone: Comment on above: KDIGO [...] rate/Area] 71.3 mL/min/{1.73_m2} 60 - PINF mL/min [facility] Work Phone: Glucose [Mass/Vol] 96 mg/dL 70 - 100 mg/dL [facility] Work Phone: Interpretation and review of laboratory results Abnormal [facility] Work Phone: Potassium [Moles/Vol] 4.3 mmol/L 3.5 - 5.1 mmol/L [facility] Work Phone: Sodium [Moles/Vol] 135 mmol/L 135 - 145 mmol/L [facility] Work Phone: Urea nitrogen (BldV) [Mass/Vol] 21 mg/dL High 7 - 17 mg/dL [facility] Work Phone: Test Performed by [facility], [address] [place] [id number] [place] [address] LAB [facility] Work Phone: CBC with Auto Differentialon 12-05-2021 Hematocrit (Bld) [Volume fraction] 43.8 % 40 - 52 % [facility] Work Phone: Hemoglobin (Bld) [Mass/Vol] 15.1 g/dL 13 - 18 g/dL [facility] Work Phone: Interpretation and review of laboratory results Abnormal [facility] Work Phone: MCH (RBC) [Entitic mass] 30.7 pg 26 - 34 pg [facility] Work Phone: MCHC (RBC) [Mass/Vol] 34.4 % 32 - 36 % [facility] Work Phone: MCV (RBC) [Entitic vol] 89.1 fL 80 - 98 fL [facility] Work Phone: [phone] Platelet distribution width (Bld) [Ratio] 13.7 % 11.5 - 14.5 % [facility] Work Phone: [phone] Platelet mean volume (Bld) [Entitic vol] 6.9 fL Low 7.4 - 12.4 fL [facility] Work Phone: [phone] Comment on above: MPV is a calculated measurement using platelet volume ratio. Platelets (Bld) [#/Vol] 265 10*3/uL 140 - 440 10*3/uL [facility] Work Phone: [phone] RBC (Bld) [#/Vol] 4.91 10*6/uL 4.4 - 5.9 10*6/uL [facility] Work Phone: 1 WBC (Bld) [#/Vol] 10.4 10*3/uL 3.6 - 10.7 10*3/uL [facility] Work Phone: [phone] Test Performed by [facility] [employer], [address] [place], [place] [id number] [place] [address] [facility] Work Phone: [phone] Hemogram w/ Autodiffon 12-05 Erythrocyte distribution width (RBC) [Ratio] 13.7 % Normal 11.5-14.5 [facility] [employer] Comment on above: Performed By: #### M DIFF, HEMDF, BMP3M #### [facility] [employer] [address] [place] [address] Hematocrit (Bld) [Volume fraction] 43.8 % Normal 40.0-52.0 [facility] Comment on above: Performed By: #### M DIFF, HEMDF, BMP3M #### [facility] [employer] [address] [place] [address] Hemoglobin (Bld) [Mass/Vol] 15.1 g/dL Normal 13.0-18.0 [facility] Comment on above: Performed By: #### M DIFF, HEMDF, BMP3M #### [facility] [address] [place] [address] MCH (RBC) [Entitic mass] 30.7 pg Normal 26.0-34.0 [facility] Comment on above: Performed By: #### M DIFF, HEMDF, BMP3M #### [facility] [address] [place] [address] MCHC 34.4 % Normal 32.0-36.0 [facility] Comment on above: Performed By: #### M DIFF, HEMDF, BMP3M #### [facility] [address] [place] [address] MCV (RBC) [Entitic vol] 89.1 fL Normal 80.0-98.0 [facility] Comment on above: Performed By: #### M DIFF, HEMDF, BMP3M #### [facility] [address] [place] [address] Platelet mean volume (Bld) [Entitic vol] 6.9 fL Low 7.4-12.4 [facility] Comment on above: Result Comment: MPV is a calculated measurement using platelet volume ratio. Performed By: #### M DIFF, HEMDF, BMP3M #### [facility] [address] [place] [address] Platelets (Bld) [#/Vol] 265 10*3/uL Normal 140-440 [facility] Comment on above: Performed By: #### M DIFF, HEMDF, BMP3M #### [facility] [address] [place] [address] RBC (Bld) [#/Vol] 4.91 10*6/uL Normal 4.40-5.90 [facility] Comment on above: Performed By: #### M DIFF, HEMDF, BMP3M #### [facility] [address] [place] [address] WBC (Bld) [#/Vol] 10.4 10*3/uL Normal 3.6-10.7 [facility] Comment on above: Performed By: #### M DIFF, HEMDF, BMP3M #### [facility] [address] [place] [address] Manual Diffon 12-05-2021 Abs Eosin Cnt 1.9 10*3/uL High 0.0-0.5 [facility] Comment on above: Performed By: #### C UA2 #### [facility] [address] [place] [address] Abs Lymph Cnt 2.4 10*3/uL Normal 1.1-4.5 [facility] Comment on above: Performed By: #### C UA2 #### [facility] [address] [place] [address] Abs Monocyte Cnt 0.6 10*3/uL Normal 0.2-1.1 [facility] Comment on above: Performed By: #### C UA2 #### [facility] [address] [place] [address] Abs Neutrophile Cnt 5.4 10*3/uL Normal 2.2-8.2 [facility] Comment on above: Performed By: #### C UA2 #### [facility] [address] [place] [address] Anisocytosis Slight Normal [facility] Comment on above: Performed By: #### C UA2 #### [facility] [address] [place] [address] Eosinophils 18 % High 1-6 [facility] Comment on above: Performed By: #### C UA2 #### [facility] [address] [place] [address] Lymphocytes 23 % Normal 20-40 [facility] Comment on above: Performed By: #### C UA2 #### [facility] [address] [place] [address] Metamyelocytes 1 % Abnormal <1 [facility] Comment on above: Performed By: #### C UA2 #### [facility] [address] [place] [address] Monocytes 6 % Normal 2-10 [facility] Comment on above: Performed By: #### C UA2 #### [facility] [address] [place] [address] Ovalocytes Slight Normal [facility] Comment on above: Performed By: #### C UA2 #### [facility] [address] [place] [address] RBC Morphology ABNORMAL Normal [facility] Comment on above: Performed By: #### C UA2 #### [facility] [address] [place] [address] Seg Neutrophils 52 % Normal 40-80 [facility] Comment on above: Performed By: #### C UA2 #### [facility] [address] [place] [address] [employer] Slight Normal [facility] Comment on above: Performed By: #### C UA2 #### [facility] [address] [place] [address] Abs Baso Cnt 0.0 10*3/uL Normal 0.0-0.2 [facility] Comment on above: Performed By: #### C UA2 #### [facility] [address] [place] [address] Bands 0 % Normal 0-3 [facility] Comment on above: Performed By: #### C UA2 #### [facility] [address] [place] [address] Basophils 0 % Normal 0-2 [facility] Comment on above: Performed By: #### C UA2 #### [facility] [address] [place] [address] Cells counted 100 Normal [facility] Comment on above: Performed By: #### C UA2 #### [facility] [address] [place] [address] Manual Differentialon 2021 Absolute Baso # 0.0 10*3/uL 0 - 0.2 10*3/uL [employer] Work Phone: [phone] Absolute Eos # 1.9 10*3/uL High 0 - 0.5 10*3/uL [employer] Work Phone: [phone] Absolute Lymph # 2.4 10*3/uL 1.1 - 4.5 10*3/uL [facility] Work Phone: [phone] Absolute [place] # 0.6 10*3/uL 0.2 - 1.1 10*3/uL [employer] Work Phone: [phone] Absolute Neut # 5.4 10*3/uL 2.2 - 8.2 10*3/uL [facility] Work Phone: [phone] Anisocytosis Slight [employer] Work Phone: [phone] Bands 0 % 0 - 3 % [employer] Work Phone: [phone] Basophils/100 WBC (Bld) 0 % 0 - 2 % [facility] Work Phone: Eosinophils/100 WBC (Bld) 18 % High 1 - 6 % [facility] Work Phone: Interpretation and review of laboratory results Abnormal [facility] Work Phone: Lymphocytes/100 WBC (Bld) 23 % 20 - 40 % [facility] Work Phone: Metamyelocytes 1 % Abnormal NINF - 1 % [facility] Work Phone: Monocytes/100 WBC (Bld) 6 % 2 - 10 % [facility] Work Phone: Ovalocytes Slight [facility] Work Phone: RBC (Bld) [#/Vol] ABNORMAL [facility] Work Phone: Seg Neutrophils 52 % 40 - 80 % [employer] Work Phone: Tear Drop Cells Slight [facility] Work Phone: TOTAL CELLS COUNTED [address] Work Phone: Test Performed by [facility], [address] [place] [address] [facility] Work Phone: Basic Metabolic Panelon 10-1 0-2021 Anion gap [Moles/Vol] 6 mmol/L Normal 3-13 [facility] Comment on above: Performed By: #### B MP3M, HEMDF #### [facility] [address] [place] [address] Calcium [Mass/Vol] 10.4 mg/dL Normal 8.4-10.4 [facility] Comment on above: Performed By: #### B MP3M, HEMDF #### [facility] [address] [place] [address] CO2 [Moles/Vol] 27 mmol/L Normal 22-30 [facility] Comment on above: Performed By: #### B MP3M, HEMDF #### [facility] [address] [place] [address] Creatinine [Mass/Vol] 1.49 mg/dL High 0.52-1.25 [facility] Comment on above: Performed By: #### B MP3M, HEMDF #### [facility] [address] [place] [address] GFR/1.73 sq M.predicted among blacks MDRD (S/P/Bld) [Vol rate/Area] 58.2 mL/min/{1.73_m2} Abnormal >60 [facility] Comment on above: Performed By: #### B MP3M, HEMDF #### [facility] [address] [facility] [place] [address] GFR/1.73 sq M.predicted among non-blacks MDRD (S/P/Bld) [Vol rate/Area] 50.2 mL/min/{1.73_m2} Abnormal >60 [facility] Comment on above: Result Comment: KDIG [...] Performed By: #### Zayra MP3M, HEMDF #### [facility] [address] [place] [address] Glucose [Mass/Vol] 106 mg/dL High 70-100 [facility] Comment on above: Performed By: #### Zayra MP3M, HEMDF #### [facility] [address] [place] [address] Urea nitrogen [Mass/Vol] 22 mg/dL High 7-17 [facility] Comment on above: Performed By: #### B MP3M, HEMDF #### [facility] [address] [place] [address] Chloride [Moles/Vol] 105 mmol/L Normal 98-107 [facility] Comment on above: Performed By: #### B MP3M, HEMDF #### [facility] [address] [place] [address] Potassium [Moles/Vol] 4.9 mmol/L Normal 3.5-5.1 [facility] Comment on above: Performed By: #### B MP3M, HEMDF #### [facility] [address] [place] [address] Sodium [Moles/Vol] 138 mmol/L Normal 135-145 [facility] Comment on above: Performed By: #### B MP3M, HEMDF #### [facility] [address] [place] [address] Basic Metabolic Panel w/ Ref rolanda to MG 12-04-2021 Anion gap [Moles/Vol] 6 mmol/L 3 - 13 mmol/L [facility] Calcium [Mass/Vol] 10.4 mg/dL 8.4 - 10. 4 mg/dL [facility] Chloride [Moles/Vol] 105 mmol/L 98 - 10 7 mmol/L [facility] CO2 [Moles/Vol] 27 mmol/L 22 - 30 mmol/L [facility] Creatinine [Mass/Vol] 1.49 mg/dL High 0.52 - 1.25 mg/dL [facility] EGFR IF NonAfrican Syrian 50.2 mL/min Abnormal 60 - PINF mL/min [facility] Comment on above: KDIGO guidelines pro [...] 106 mg/dL High 70 - 100 mg/dL [facility] Interpretation and review of laboratory results Abnormal [facility] Potassium [Moles/Vol] 4.9 mmol/L 3.5 - 5.1 mmol/L [facility] Sodium [Moles/Vol] 138 mmol/L 135 - 145 mmol/L [facility] Urea nitrogen (BldV) [Mass/Vol] 22 mg/dL High 7 - 17 mg/dL [facility] Test Performed by [facility], [address] [place], [place] [address] [facility] with Auto Differentialon 12-04-2021 Absolute Baso [...] [Mass/Vol] 15.9 g/dL 13 - 18 g/dL [facility] Interpretation and review of laboratory results [...] [#/Vol] 0.7 10*3/uL 0 - 0.8 10*3/uL [facility] Monocytes/100 WBC (Bld) 6.6 % 2 - 10 % S [facility] Platelet distribution width (Bld) [Ratio] 13.5 % 11.5 - 14.5 % [facility] Platelet mean volume (Bld) [Entitic vol] 7.3 fL Low 7.4 - 12.4 fL [facility] Comment on above: MPV is a calculated measurement using platelet volume ratio. Platelets (Bld) [#/Vol] 268 10*3/uL 140 - 440 10*3/uL [facility] RBC (Bld) [#/Vol] 5.20 10*6/uL 4.4 - 5.9 10*6/uL [facility] WBC (Bld) [#/Vol] 10.1 10*3/uL 3.6 - 10.7 10*3/uL [facility] Test Performed by [facility], [address] [place], [place] [id number] [place] [address] LAB [facility] Complete Urinalysison 2021 Appearance (U) Clear Normal Clear [facility] Comment on above: Result Comment: . Performed By: #### H EMDF, TSH5, LIPD2, CMP3M #### [facility] [address] [place] [address] Bilirubin,Urine Negative Normal Negative [facility] Comment on above: Result Comment: . Performed By: #### H EMDF, TSH5, LIPD2, CMP3M #### [facility] [address] [place] [address] Color (U) Light-Yellow Normal Lt. Yellow [facility] Comment on above: Result Comment: . Performed By: #### H EMDF, TSH5, LIPD2, CMP3M #### [facility] [address] [place] [address] Glucose Ql (U) Normal Normal Normal (<70) [facility] Comment on above: Result Comment: . Performed By: #### H EMDF, TSH5, LIPD2, CMP3M #### [facility] [address] [place] [address] Ketone,Urine Negative Normal Negative [facility] Comment on above: Result Comment: . Performed By: #### H EMDF, TSH5, LIPD2, CMP3M #### [facility] [address] [place] [address] Leukocytes,Urine Negative Normal Negative [facility] Comment on above: Result Comment: . Performed By: #### H EMDF, TSH5, LIPD2, CMP3M #### [facility] [address] [place] [address] Nitrites,Urine Negative Normal Negative [facility] Comment on above: Result Comment: . Performed By: #### H EMDF, TSH5, LIPD2, CMP3M #### [facility] [address] [place] [address] Occult Blood,Urine Negative Normal Negative [facility] Comment on above: Result Comment: . Performed By: #### H EMDF, TSH5, LIPD2, CMP3M #### [facility] [address] [place] [address] pH,Urine 7.0 Normal 5.0-8.0 [facility] Comment on above: Result Comment: . Performed By: #### H EMDF, TSH5, LIPD2, CMP3M #### [facility] [address] [place] [address] Specific [place],Urine 1.013 Normal 1.005 - 1.030 [facility] Comment on above: Result Comment: . Performed By: #### H EMDF, TSH5, LIPD2, CMP3M #### [facility] [address] [place] [address] Total Protein,Urine Negative Normal Negative [facility] Comment on above: Result Comment: . Performed By: #### H EMDF, TSH5, LIPD2, CMP3M #### [facility] [address] [place] [address] Urobilinogen,Urine Normal Normal Normal (0-1) [facility] Comment on above: Result Comment: . Performed By: #### H EMDF, TSH5, LIPD2, CMP3M #### [facility] [address] [place] [address] Hemogram w/ Autodiffon 12-04 Abs Baso Cnt 0.1 10*3/uL Normal 0.0-0.2 [facility] Comment on above: Performed By: #### B MP3M, HEMDF #### [facility] [address] [place] [address] Abs Neutrophile Cnt 5.0 10*3/uL Normal 1.8-7.0 [facility] Comment on above: Performed By: #### B MP3M, HEMDF #### [facility] [address] [place] [address] Basophils/100 WBC (Bld) 0.6 % Normal 0.0-2.0 [facility] Comment on above: Performed By: #### B MP3M, HEMDF #### [facility] [address] [place] [address] Eosinophils (Bld) [#/Vol] 1.5 10*3/uL High 0.0-0.5 [facility] Comment on above: Performed By: #### B MP3M, HEMDF #### [facility] [address] [place] [address] Eosinophils/100 WBC (Bld) 14.6 % High 1.0-6.0 [facility] Comment on above: Performed By: #### B MP3M, HEMDF #### [facility] [address] [place] [address] Erythrocyte distribution width (RBC) [Ratio] 13.5 % Normal 11.5-14.5 [facility] Comment on above: Performed By: #### B MP3M, HEMDF #### [facility] [address] [place] [address] Granulocytes/100 WBC (Bld) 49.8 % Normal 40.0-80.0 [facility] Comment on above: Performed By: #### B MP3M, HEMDF #### [facility] [address] [place] [address] Hematocrit (Bld) [Volume fraction] 46.9 % Normal 40.0-52.0 [facility] Comment on above: Performed By: #### B MP3M, HEMDF #### [facility] [address] [place] [address] Hemoglobin (Bld) [Mass/Vol] 15.9 g/dL Normal 13.0-18.0 [facility] Comment on above: Performed By: #### B MP3M, HEMDF #### [facility] [address] [place] [address] Lymphocytes (Bld) [#/Vol] 2.9 10*3/uL Normal 1.0-4.3 [facility] Comment on above: Performed By: #### B MP3M, HEMDF #### [facility] [address] [place] [address] Lymphocytes/100 WBC (Bld) 28.4 % Normal 20.0-40.0 [facility] Comment on above: Performed By: #### B MP3M, HEMDF #### [facility] [address] [place] [address] MCH (RBC) [Entitic mass] 30.7 pg Normal 26.0-34.0 [facility] Comment on above: Performed By: #### B MP3M, HEMDF #### [facility] [address] [place] [address] MCHC 34.0 % Normal 32.0-36.0 [facility] Comment on above: Performed By: #### B MP3M, HEMDF #### [facility] [address] [place] [address] MCV (RBC) [Entitic vol] 90.2 fL Normal 80.0-98.0 [facility] Comment on above: Performed By: #### B MP3M, HEMDF #### [facility] [address] [place] [address] Monocytes (Bld) [#/Vol] 0.7 10*3/uL Normal 0.0-0.8 [facility] Comment on above: Performed By: #### B MP3M, HEMDF #### [facility] [address] [place] [address] Monocytes/100 WBC (Bld) 6.6 % Normal 2.0-10.0 [facility] Comment on above: Performed By: #### B MP3M, HEMDF #### [facility] [address] [place] [address] Platelet mean volume (Bld) [Entitic vol] 7.3 fL Low 7.4-12.4 [facility] Comment on above: Result Comment: MPV is a calculated measurement using platelet volume ratio. Performed By: #### B MP3M, HEMDF #### [facility] [address] [place] [address] Platelets (Bld) [#/Vol] 268 10*3/uL Normal 140-440 [facility] Comment on above: Performed By: #### B MP3M, HEMDF #### [facility] [address] [place] [address] RBC (Bld) [#/Vol] 5.20 10*6/uL Normal 4.40-5.90 [facility] Comment on above: Performed By: #### B MP3M, HEMDF #### [facility] [address] [place] [address] WBC (Bld) [#/Vol] 10.1 10*3/uL Normal 3.6-10.7 [facility] Comment on above: Performed By: #### B MP3M, HEMDF #### [facility] [address] [place] [address] US RETROPERITONEAL LIMITEDon 12-04-2021 Patient Name: CORRIE QUEEN Ultrasound ACCESSION EXAM DATE/TIME PROCEDURE ORDERING PROVIDER [id number] 12/04/2021 10:28 EDT US Retroperitoneal KIARA BOB CPT code 31846 Reason For Exam (US Retroperitoneal Limited) R [...] Ultrasound ACCESSION EXAM DATE/TIME PROCEDURE ORDERING PROVIDER [id number] 12/04/2021 10:28 EDT US Retroperitoneal KIARA BOB CPT code 41463 Reason For Exam (US Retroperitoneal Limited) R [...] Ultrasound ACCESSION EXAM DATE/TIME PROCEDURE ORDERING PROVIDER [id number] 12/04/2021 10:28 EDT US Retroperitoneal KIARA BOB CPT code 05499 Reason For Exam (US Retroperitoneal Limited) R [...] Transcribed Date and Time: 12/04/2021 2:48 Normal [facility] UrinalysisOrdered By: Connor Kapoor on 12-04-2021 Appearance (U) Clear Clear NA [facility] Comment on above: . Bilirubin Urine Negative Negative mg/dL [facility] Comment on above: . Color (U) Light-Yellow Lt. Yellow NA [facility] Comment on above: . Glucose, Ur Normal Normal (<70) mg/dL [facility] Comment on above: . Ketones Ql (U) Negative Negative mg/dL [facility] Comment on above: . LEUKOCYTES, UA Negative Negative Irina/uL [facility] Comment on above: . Nitrite, Urine Negative Negative NA [facility] Comment on above: . Occult Blood,Urine Negative Negative mg/dL [facility] Comment on above: . pH (U) 7.0 [pH] [facility] Comment on above: . Specific [place], Urine 1.[address] [facility] Comment on above: . Total Protein, Urine Negative Negativ e mg/dL [facility] Comment on above: . Urobilinogen, Urine Normal Normal (0-1) mg/dL [facility] Comment on above: . [facility] Urinalysison 12-04-2021 Test Performed by [facility], [address] [place] [address] [facility] Basic Metabolic Panelon 10-0 Calcium [Mass/Vol] 9.7 mg/dL Normal 8.4-10.4 [facility] Comment on above: Performed By: #### H EMDF, TSH5, LIPD2, CMP3M #### [facility] [address] [place] [address] Glucose [Mass/Vol] 96 mg/dL Normal 70-100 [facility] Comment on above: Performed By: #### H EMDF, TSH5, LIPD2, CMP3M #### [facility] [address] [place] [address] Anion gap [Moles/Vol] 7 mmol/L Normal 3-13 [facility] Comment on above: Performed By: #### H EMDF, TSH5, LIPD2, CMP3M #### [facility] [address] [place] [address] CO2 [Moles/Vol] 21 mmol/L Low 22-30 [facility] Comment on above: Performed By: #### H EMDF, TSH5, LIPD2, CMP3M #### [facility] [address] [place] [address] Creatinine [Mass/Vol] 1.22 mg/dL Normal 0.52-1.25 [facility] Comment on above: Performed By: #### H EMDF, TSH5, LIPD2, CMP3M #### [facility] [address] [place] [address] GFR/1.73 sq M.predicted among blacks MDRD (S/P/Bld) [Vol rate/Area] 74.1 mL/min/{1.73_m2} Normal >60 [facility] Comment on above: Performed By: #### H EMDF, TSH5, LIPD2, CMP3M #### [facility] [address] [place] [address] GFR/1.73 sq M.predicted among non-blacks MDRD (S/P/Bld) [Vol rate/Area] 63.9 mL/min/{1.73_m2} Normal >60 [facility] Comment on above: Result Comment: KDIG [...] #### H EMDF, TSH5, LIPD2, CMP3M #### [facility] [address] [place] [address] Urea nitrogen [Mass/Vol] 24 mg/dL High 7-17 [facility] Comment on above: Performed By: #### H EMDF, TSH5, LIPD2, CMP3M #### [facility] [address] [place] [address] Chloride [Moles/Vol] 110 mmol/L High 98-107 [facility] Comment on above: Performed By: #### H EMDF, TSH5, LIPD2, CMP3M #### [facility] [address] [place] [address] Potassium [Moles/Vol] 4.2 mmol/L Normal 3.5-5.1 [facility] Comment on above: Performed By: #### H EMDF, TSH5, LIPD2, CMP3M #### [facility] [address] [place] [address] Sodium [Moles/Vol] 137 mmol/L Normal 135-145 [facility] Comment on above: Performed By: #### H EMDF, TSH5, LIPD2, CMP3M #### [facility] [address] [place] [address] Basic Metabolic Panel w/ Ref rolanda to MGon 12-03-2021 Anion gap [Moles/Vol] 7 mmol/L 3 - 13 mmol/L [facility] Calcium [Mass/Vol] 9.7 mg/dL 8.4 - 10. 4 mg/dL [facility] Chloride [Moles/Vol] 110 mmol/L High 98 - 10 7 mmol/L [facility] CO2 [Moles/Vol] 21 mmol/L Low 22 - 30 mmol/L [facility] Creatinine [Mass/Vol] 1.22 mg/dL 0.52 - 1.25 mg/dL [facility] EGFR IF NonAfrican Syrian 63.9 mL/min 60 - PINF mL/min [facility] Comment on above: KDIGO guidelines pro [...] 24 mg/dL High 7 - 17 mg/dL [facility] Test Performed by [facility], [address] [place] [address] LAB [facility] CBC with Auto Differentialon 12-03-2021 Absolute [...] [Mass/Vol] 14.6 g/dL 13 - 18 g/dL [facility] Interpretation and review of laboratory results Abnormal [facility] Lymphocytes (Bld) [#/Vol] 2.3 10*3/uL 1 - 4.3 10*3/uL [facility] Lymphocytes/100 WBC (Bld) 29.5 % 20 - 40 % [facility] MCH (RBC) [Entitic mass] 30.9 pg 26 - 34 pg [facility] MCHC (RBC) [Mass/Vol] 34.8 % 32 - 36 % [facility] MCV (RBC) [Entitic vol] 88.7 fL 80 - [address] [facility] Monocytes (Bld) [#/Vol] 0.5 10*3/uL 0 - 0.8 10*3/uL [facility] Monocytes/100 WBC (Bld) 6.2 % 2 - 10 % S [facility] Platelet distribution width (Bld) [Ratio] 13.7 % 11.5 - 14.5 % [facility] Platelet mean volume (Bld) [Entitic vol] 7.2 fL Low 7.4 - 12.4 fL [facility] Comment on above: MPV is a calculated measurement using platelet volume ratio. Platelets (Bld) [#/Vol] 228 10*3/uL 140 - 440 10*3/uL [facility] RBC (Bld) [#/Vol] 4.72 10*6/uL 4.4 - 5.9 10*6/uL [facility] WBC (Bld) [#/Vol] 7.8 10*3/uL 3.6 - 10.7 10*3/uL [facility] Test Performed by [facility], [address] [place], [place] [id number] [place] [address] LAB [facility] Hemogram w/ Autodiffon 12-03 Abs Baso Cnt 0.0 10*3/uL Normal 0.0-0.2 [facility] Comment on above: Performed By: #### H EMDF, TSH5, LIPD2, CMP3M #### [facility] [address] [place] [address] Abs Neutrophile Cnt 3.6 10*3/uL Normal 1.8-7.0 [facility] Comment on above: Performed By: #### H EMDF, TSH5, LIPD2, CMP3M #### [facility] [address] [place] [address] Basophils/100 WBC (Bld) 0.5 % Normal 0.0-2.0 [facility] Comment on above: Performed By: #### H EMDF, TSH5, LIPD2, CMP3M #### [facility] [address] [place] [address] Eosinophils (Bld) [#/Vol] 1.3 10*3/uL High 0.0-0.5 [facility] Comment on above: Performed By: #### H EMDF, TSH5, LIPD2, CMP3M #### [facility] [address] [place] [address] Eosinophils/100 WBC (Bld) 17.0 % High 1.0-6.0 [facility] Comment on above: Performed By: #### H EMDF, TSH5, LIPD2, CMP3M #### [facility] [address] [place] [address] Erythrocyte distribution width (RBC) [Ratio] 13.7 % Normal 11.5-14.5 [facility] Comment on above: Performed By: #### H EMDF, TSH5, LIPD2, CMP3M #### [facility] [address] [place] [address] Granulocytes/100 WBC (Bld) 46.8 % Normal 40.0-80.0 [facility] Comment on above: Performed By: #### H EMDF, TSH5, LIPD2, CMP3M #### [facility] [address] [place] [address] Hematocrit (Bld) [Volume fraction] 41.8 % Normal 40.0-52.0 [facility] Comment on above: Performed By: #### H EMDF, TSH5, LIPD2, CMP3M #### [facility] [address] [place] [address] Hemoglobin (Bld) [Mass/Vol] 14.6 g/dL Normal 13.0-18.0 [facility] Comment on above: Performed By: #### H EMDF, TSH5, LIPD2, CMP3M #### [facility] [address] [place] [address] Lymphocytes (Bld) [#/Vol] 2.3 10*3/uL Normal 1.0-4.3 [facility] Comment on above: Performed By: #### H EMDF, TSH5, LIPD2, CMP3M #### [facility] [address] [place] [address] Lymphocytes/100 WBC (Bld) 29.5 % Normal 20.0-40.0 [facility] Comment on above: Performed By: #### H EMDF, TSH5, LIPD2, CMP3M #### [facility] [address] [place] [address] MCH (RBC) [Entitic mass] 30.9 pg Normal 26.0-34.0 [facility] Comment on above: Performed By: #### H EMDF, TSH5, LIPD2, CMP3M #### [facility] [address] [place] [address] MCHC 34.8 % Normal 32.0-36.0 [facility] Comment on above: Performed By: #### H EMDF, TSH5, LIPD2, CMP3M #### [facility] [address] [place] [address] MCV (RBC) [Entitic vol] 88.7 fL Normal 80.0-98.0 [facility] Comment on above: Performed By: #### H EMDF, TSH5, LIPD2, CMP3M #### [facility] [address] [place] [address] Monocytes (Bld) [#/Vol] 0.5 10*3/uL Normal 0.0-0.8 [facility] Comment on above: Performed By: #### H EMDF, TSH5, LIPD2, CMP3M #### [facility] [address] [place] [address] Monocytes/100 WBC (Bld) 6.2 % Normal 2.0-10.0 [facility] Comment on above: Performed By: #### H EMDF, TSH5, LIPD2, CMP3M #### [facility] [address] [place] [address] Platelet mean volume (Bld) [Entitic vol] 7.2 fL Low 7.4-12.4 [facility] Comment on above: Result Comment: MPV is a calculated measurement using platelet volume ratio. Performed By: #### H EMDF, TSH5, LIPD2, CMP3M #### [facility] [address] [place] [address] Platelets (Bld) [#/Vol] 228 10*3/uL Normal 140-440 [facility] Comment on above: Performed By: #### H EMDF, TSH5, LIPD2, CMP3M #### [facility] [employer] [facility] [address] [place] [address] RBC (Bld) [#/Vol] 4.72 10*6/uL Normal 4.40-5.90 [facility] Comment on above: Performed By: #### H EMDF, TSH5, LIPD2, CMP3M #### [facility] [employer] [facility] [address] [place] [address] WBC (Bld) [#/Vol] 7.8 10*3/uL Normal 3.6-10.7 [facility] Comment on above: Performed By: #### H EMDF, TSH5, LIPD2, CMP3M #### [facility] [employer] [facility] [address] [place] [address] CBC with Auto Differentialon 12-02-2021 Absolute Baso # 0.0 10*3/uL 0 - 0.2 10*3/uL [facility] Work Phone: Absolute Neut # 4.6 10*3/uL 1.8 - 7 10*3/uL [employer] Work Phone: 22 Basophils/100 WBC (Bld) 0.4 % 0 - 2 % S [facility] Work Phone: 22 Eosinophils (Bld) [#/Vol] 1.4 10*3/uL High 0 - 0.5 10*3/uL [facility] Work Phone: ) [phone] Eosinophils/100 WBC (Bld) 16.2 % High 1 - 6 % [facility] Work Phone: 22 Granulocytes/100 WBC (Bld) 54.3 % 40 - 80 % [facility] Work Phone: Hematocrit (Bld) [Volume fraction] 40.8 % 40 - 52 % [facility] Work Phone: Hemoglobin (Bld) [Mass/Vol] 14.3 g/dL 13 - 18 g/dL [facility] Work Phone: Interpretation and review of laboratory results Abnormal [facility] Work Phone: 22 Lymphocytes (Bld) [#/Vol] 1.8 10*3/uL 1 - 4.3 10*3/uL [facility] Work Phone: 1 Lymphocytes/100 WBC (Bld) 21.5 % 20 - 40 % [facility] Work Phone: MCH (RBC) [Entitic mass] 31.2 pg 26 - [address] [facility] Work Phone: 1 MCHC (RBC) [Mass/Vol] 35.0 % 32 - 36 % [facility] Work Phone: MCV (RBC) [Entitic vol] 89.0 fL 80 - 98 fL [facility] Work Phone: Monocytes (Bld) [#/Vol] 0.6 10*3/uL 0 - 0.8 10*3/uL [facility] Work Phone: 1 Monocytes/100 WBC (Bld) 7.6 % 2 - 10 % S [facility] Work Phone: Platelet distribution width (Bld) [Ratio] 13.8 % 11.5 - 14.5 % [facility] Work Phone: Platelet mean volume (Bld) [Entitic vol] 7.1 fL Low 7.4 - 12.4 fL [facility] Work Phone: 1 Comment on above: MPV is a calculated measurement using platelet volume ratio. Platelets (Bld) [#/Vol] 203 10*3/uL 140 - 440 10*3/uL [facility] Work Phone: RBC (Bld) [#/Vol] 4.58 10*6/uL 4.4 - 5.9 10*6/uL [facility] Work Phone: WBC (Bld) [#/Vol] 8.6 10*3/uL 3.6 - 10.7 10*3/uL [facility] Work Phone: Test Performed by [employer] [facility], [address] [place], [place] [address] [facility] Work Phone: [phone] CULTURE URINEon 12-02-2021 CULTURE URINE CULTURE URINE --> Status: F No growth (<1,000 CFU/ml). Normal [facility] Comment on above: Performed By: #### C UA2 #### [facility] [address] [place] [address] Comp Panel with Mg Reflexon 12-02-2021 Bilirubin [Mass/Vol] 0.4 mg/dL Normal 0.2-1.3 [facility] Comment on above: Performed By: #### H EMDF, TSH5, LIPD2, CMP3M #### [facility] [address] [place] [address] ALP [Catalytic activity/Vol] 46 U/L Normal 38-126 [facility] Comment on above: Performed By: #### H EMDF, TSH5, LIPD2, CMP3M #### [facility] [address] [place] [address] ALT [Catalytic activity/Vol] 16 U/L Normal 0-49 [facility] Comment on above: Result Comment: The ALT test is performed by an updated assay method. Please note that the reference intervals have been changed and are now sex specific. Performed By: #### H EMDF, TSH5, LIPD2, CMP3M #### [facility] [address] [place] [address] Anion gap [Moles/Vol] 9 mmol/L Normal 3-13 [facility] Comment on above: Performed By: #### H EMDF, TSH5, LIPD2, CMP3M #### [facility] [address] [place] [address] AST [Catalytic activity/Vol] 24 U/L Normal 15-46 [facility] Comment on above: Performed By: #### H EMDF, TSH5, LIPD2, CMP3M #### [facility] [address] [place] [address] Calcium [Mass/Vol] 9.7 mg/dL Normal 8.4-10.4 [facility] Comment on above: Performed By: #### H EMDF, TSH5, LIPD2, CMP3M #### [facility] [address] [place] [address] CO2 [Moles/Vol] 18 mmol/L Low 22-30 [facility] Comment on above: Performed By: #### H EMDF, TSH5, LIPD2, CMP3M #### [facility] [address] [place] [address] Creatinine [Mass/Vol] 1.49 mg/dL High 0.52-1.25 [facility] Comment on above: Performed By: #### H EMDF, TSH5, LIPD2, CMP3M #### [facility] [address] [place] [address] GFR/1.73 sq M.predicted among blacks MDRD (S/P/Bld) [Vol rate/Area] 58.2 mL/min/{1.73_m2} Abnormal >60 [facility] Comment on above: Performed By: #### H EMDF, TSH5, LIPD2, CMP3M #### [facility] [address] [place] [address] GFR/1.73 sq M.predicted among non-blacks MDRD (S/P/Bld) [Vol rate/Area] 50.2 mL/min/{1.73_m2} Abnormal >60 [facility] Comment on above: Result Comment: KDIG [...] #### H EMDF, TSH5, LIPD2, CMP3M #### [facility] [address] [place] [address] Glucose [Mass/Vol] 99 mg/dL Normal 70-100 [facility] Comment on above: Performed By: #### H EMDF, TSH5, LIPD2, CMP3M #### [facility] [address] [place] [address] Protein [Mass/Vol] 6.7 g/dL Normal 6.3-8.2 [facility] Comment on above: Performed By: #### H EMDF, TSH5, LIPD2, CMP3M #### [facility] [address] [place] [address] Urea nitrogen [Mass/Vol] 29 mg/dL High 7-17 [facility] Comment on above: Performed By: #### H EMDF, TSH5, LIPD2, CMP3M #### [facility] [address] [place] [address] Potassium [Moles/Vol] 3.7 mmol/L Normal 3.5-5.1 [facility] Comment on above: Performed By: #### H EMDF, TSH5, LIPD2, CMP3M #### [facility] [address] [place] [address] Albumin [Mass/Vol] 3.7 g/dL Normal 3.5-5.0 [facility] Comment on above: Performed By: #### H EMDF, TSH5, LIPD2, CMP3M #### [facility] [address] [place] [address] Chloride [Moles/Vol] 107 mmol/L Normal 98-107 [facility] Comment on above: Performed By: #### H EMDF, TSH5, LIPD2, CMP3M #### [facility] [address] [place] [address] Sodium [Moles/Vol] 134 mmol/L Low 135-145 [facility] Comment on above: Performed By: #### H EMDF, TSH5, LIPD2, CMP3M #### [facility] [address] [place] [address] Comprehensive Metabolic Pane l w/ Reflex to MGon 12-02-2021 Albumin [Mass/Vol] 3.7 g/dL 3.5 - 5 g/dL [facility] Work Phone: ALP (Bld) [Catalytic activity/Vol] 46 U/L 38 - 126 U/L [facility] Work Phone: ALT [Catalytic activity/Vol] 16 U/L 0 - 49 U/L [facility] Work Phone: [phone] Comment on above: The ALT test is perf ormed by an updated assay method. Please note that the reference intervals have been changed and are now sex specific. Anion gap [Moles/Vol] 9 mmol/L 3 - 13 mmol/L [employer] Work Phone: AST [Catalytic activity/Vol] 24 U/L 15 - 46 U/L [facility] Work Phone: Bilirubin [Mass/Vol] 0.4 mg/dL 0.2 - 1 .3 mg/dL [employer] Work Phone: [phone] Calcium [Mass/Vol] 9.7 mg/dL 8.4 - 10. 4 mg/dL [employer] Work Phone: [phone] Chloride [Moles/Vol] 107 mmol/L 98 - 10 7 mmol/L [facility] Work Phone: [phone] CO2 [Moles/Vol] 18 mmol/L Low 22 - 30 mmol/L [facility] Work Phone: [phone] Creatinine [Mass/Vol] 1.49 mg/dL High 0.52 - 1.25 mg/dL [facility] Work Phone: [phone] EGFR IF NonAfrican Syrian 50.2 mL/min Abnormal 60 - PINF mL/min [facility] Work Phone: Comment on above: KDIGO guidelines [...] 58.2 mL/min/{1.73_m2} Abnormal 60 - PINF mL/min [facility] Work Phone: Glucose [Mass/Vol] 99 mg/dL 70 - 100 mg/dL [facility] Work Phone: Potassium [Moles/Vol] 3.7 mmol/L 3.5 - 5.1 mmol/L [facility] Work Phone: Protein [Mass/Vol] 6.7 g/dL 6.3 - 8.2 g/dL [facility] Work Phone: Sodium [Moles/Vol] 134 mmol/L Low 135 - 145 mmol/L [facility] Work Phone: Urea nitrogen (BldV) [Mass/Vol] 29 mg/dL High 7 - 17 mg/dL [facility] Work Phone: Culture, Urineon 12-02-2021 Bacteria identified Cx Nom (U) No growth (<1,000 CFU/ml). [facility] Test Performed by [facility], [address] [place] [id number] [facility] Hemogram w/ Autodiffon 12-02 Abs Baso Cnt 0.0 10*3/uL Normal 0.0-0.2 [facility] Comment on above: Performed By: #### H EMDF, TSH5, LIPD2, CMP3M #### [facility] [employer] [facility] [address] [place] [address] Abs Neutrophile Cnt 4.6 10*3/uL Normal 1.8-7.0 [facility] Comment on above: Performed By: #### H EMDF, TSH5, LIPD2, CMP3M #### [facility] [employer] [facility] [address] [place] [address] Basophils/100 WBC (Bld) 0.4 % Normal 0.0-2.0 [facility] Comment on above: Performed By: #### H EMDF, TSH5, LIPD2, CMP3M #### [facility] [address] [place] [address] Eosinophils (Bld) [#/Vol] 1.4 10*3/uL High 0.0-0.5 [facility] Comment on above: Performed By: #### H EMDF, TSH5, LIPD2, CMP3M #### [facility] [address] [place] [address] Eosinophils/100 WBC (Bld) 16.2 % High 1.0-6.0 [facility] Comment on above: Performed By: #### H EMDF, TSH5, LIPD2, CMP3M #### [facility] [address] [place] [address] Erythrocyte distribution width (RBC) [Ratio] 13.8 % Normal 11.5-14.5 [facility] Comment on above: Performed By: #### H EMDF, TSH5, LIPD2, CMP3M #### [facility] [address] [place] [address] Granulocytes/100 WBC (Bld) 54.3 % Normal 40.0-80.0 [facility] Comment on above: Performed By: #### H EMDF, TSH5, LIPD2, CMP3M #### [facility] [address] [place] [address] Hematocrit (Bld) [Volume fraction] 40.8 % Normal 40.0-52.0 [facility] Comment on above: Performed By: #### H EMDF, TSH5, LIPD2, CMP3M #### [facility] [address] [place] [address] Hemoglobin (Bld) [Mass/Vol] 14.3 g/dL Normal 13.0-18.0 [facility] Comment on above: Performed By: #### H EMDF, TSH5, LIPD2, CMP3M #### [facility] [address] [place] [address] Lymphocytes (Bld) [#/Vol] 1.8 10*3/uL Normal 1.0-4.3 [facility] Comment on above: Performed By: #### H EMDF, TSH5, LIPD2, CMP3M #### [facility] [address] [place] [address] Lymphocytes/100 WBC (Bld) 21.5 % Normal 20.0-40.0 [facility] Comment on above: Performed By: #### H EMDF, TSH5, LIPD2, CMP3M #### [facility] [address] [place] [address] MCH (RBC) [Entitic mass] 31.2 pg Normal 26.0-34.0 [facility] Comment on above: Performed By: #### H EMDF, TSH5, LIPD2, CMP3M #### [facility] [address] [place] [address] MCHC 35.0 % Normal 32.0-36.0 [facility] Comment on above: Performed By: #### H EMDF, TSH5, LIPD2, CMP3M #### [facility] [address] [place] [address] MCV (RBC) [Entitic vol] 89.0 fL Normal 80.0-98.0 [facility] Comment on above: Performed By: #### H EMDF, TSH5, LIPD2, CMP3M #### [facility] [address] [place] [address] Monocytes (Bld) [#/Vol] 0.6 10*3/uL Normal 0.0-0.8 [facility] Comment on above: Performed By: #### H EMDF, TSH5, LIPD2, CMP3M #### [facility] [address] [place] [address] Monocytes/100 WBC (Bld) 7.6 % Normal 2.0-10.0 [facility] Comment on above: Performed By: #### H EMDF, TSH5, LIPD2, CMP3M #### [facility] [address] [place] [address] Platelet mean volume (Bld) [Entitic vol] 7.1 fL Low 7.4-12.4 [facility] Comment on above: Result Comment: MPV is a calculated measurement using platelet volume ratio. Performed By: #### H EMDF, TSH5, LIPD2, CMP3M #### [facility] [address] [place] [address] Platelets (Bld) [#/Vol] 203 10*3/uL Normal 140-440 [facility] Comment on above: Performed By: #### H EMDF, TSH5, LIPD2, CMP3M #### [facility] [address] [place] [address] RBC (Bld) [#/Vol] 4.58 10*6/uL Normal 4.40-5.90 [facility] Comment on above: Performed By: #### H EMDF, TSH5, LIPD2, CMP3M #### [facility] [address] [place] [address] WBC (Bld) [#/Vol] 8.6 10*3/uL Normal 3.6-10.7 [facility] Comment on above: Performed By: #### H EMDF, TSH5, LIPD2, CMP3M #### [facility] [address] [place] [address] Lipid Panelon 12-02-2021 Low Density Lipoprotein 54 mg/dL Normal <100 [facility] Comment on above: Performed By: #### H EMDF, TSH5, LIPD2, CMP3M #### [facility] [address] [place] [address] Triglyceride [Mass/Vol] 187 mg/dL Abnormal <150 [facility] Comment on above: Performed By: #### H EMDF, TSH5, LIPD2, CMP3M #### [facility] [address] [place] [address] Chol/HDL 5 Normal [facility] Comment on above: Result Comment: Ref Range: < 3 Low Risk for CHD 3-6 Mod Risk for CHD > 6 High Risk for CHD Performed By: #### H EMDF, TSH5, LIPD2, CMP3M #### [facility] [address] [place] [address] Cholesterol in HDL [Mass/Vol] 21 mg/dL Low 40-60 [facility] Comment on above: Performed By: #### H EMDF, TSH5, LIPD2, CMP3M #### [facility] [address] [place] [address] Cholesterol [Mass/Vol] 112 mg/dL Normal < 200 [facility] Comment on above: Performed By: #### H EMDF, TSH5, LIPD2, CMP3M #### [facility] [address] [place] [address] Cholesterol [Mass/Vol] 112 mg/dL NINF - 200 mg/dL [facility] Work Phone: [phone] Cholesterol in HDL [Mass/Vol] 21 mg/dL Low 40 - 60 mg/dL [facility] Work Phone: [phone] Cholesterol in LDL [Mass/Vol] 54 mg/dL NINF - 100 mg/dL [facility] Work Phone: [phone] Cholesterol.total/Cholest betina in HDL [Mass ratio] 5 {ratio} [facility] Work Phone: [phone] Comment on above: Ref Range: < 3 Low Risk for CHD 3-6 Mod Risk for CHD > 6 High Risk for CHD Triglyceride [Mass/Vol] 187 mg/dL Abnormal NINF - 150 mg/dL [facility] Work Phone: [phone] Panel Informationon 12-02 Interpretation and review of laboratory results Abnormal [facility] Work Phone: [phone] Test Performed by [place] [address] [place], [place] [id number] [place] [address] LAB [facility] Work Phone: [phone] TSHon 12-02-2021 TSH Qn 2.706 u[IU]/mL 0.465 - 4.68 u[IU]/mL [facility] Work Phone: [phone] Test Performed by [facility], [facility] [address] [place], [place] [id number] [place] [address] LAB [facility] Work Phone: [phone] Thyroid Stim. Hormoneon Thyroid Stim. Hormone 2.706 u[IU]/mL Normal 0.465-4.68 0 [facility] Comment on above: Performed By: #### H EMDF, TSH5, LIPD2, CMP3M #### [facility] [address] [place] [address] Basic Metabolic Panelon 10-0 Calcium [Mass/Vol] 10.7 mg/dL High 8.4-10.4 [facility] Comment on above: Performed By: #### H EMDF, TSH5, LIPD2, CMP3M #### [facility] [address] [place] [address] Glucose [Mass/Vol] 122 mg/dL High 70-100 [facility] Comment on above: Performed By: #### H EMDF, TSH5, LIPD2, CMP3M #### [facility] [address] [place] [address] Anion gap [Moles/Vol] 9 mmol/L Normal 3-13 [facility] Comment on above: Performed By: #### H EMDF, TSH5, LIPD2, CMP3M #### [facility] [address] [place] [address] CO2 [Moles/Vol] 21 mmol/L Low 22-30 [facility] Comment on above: Performed By: #### H EMDF, TSH5, LIPD2, CMP3M #### [facility] [address] [place] [address] Creatinine [Mass/Vol] 1.34 mg/dL High 0.52-1.25 [facility] Comment on above: Performed By: #### H EMDF, TSH5, LIPD2, CMP3M #### [facility] [address] [place] [address] GFR/1.73 sq M.predicted among blacks MDRD (S/P/Bld) [Vol rate/Area] 66.2 mL/min/{1.73_m2} Normal >60 [facility] Comment on above: Performed By: #### H EMDF, TSH5, LIPD2, CMP3M #### [facility] [address] [place] [address] GFR/1.73 sq M.predicted among non-blacks MDRD (S/P/Bld) [Vol rate/Area] 57.1 mL/min/{1.73_m2} Abnormal >60 [facility] Comment on above: Result Comment: KDIG [...] #### H EMDF, TSH5, LIPD2, CMP3M #### [facility] [address] [place] [address] Urea nitrogen [Mass/Vol] 18 mg/dL High 7-17 [facility] Comment on above: Performed By: #### H EMDF, TSH5, LIPD2, CMP3M #### [facility] [address] [place] [address] Potassium [Moles/Vol] 4.0 mmol/L Normal 3.5-5.1 [facility] Comment on above: Performed By: #### H EMDF, TSH5, LIPD2, CMP3M #### [facility] [address] [place] [address] Sodium [Moles/Vol] 133 mmol/L Low 135-145 [facility] Comment on above: Performed By: #### H EMDF, TSH5, LIPD2, CMP3M #### [facility] [address] [place] [address] Chloride [Moles/Vol] 103 mmol/L Normal 98-107 [facility] Comment on above: Performed By: #### H EMDF, TSH5, LIPD2, CMP3M #### [facility] [address] [place] [address] Anion gap [Moles/Vol] 9 mmol/L 3 - 13 mmol/L [facility] Calcium [Mass/Vol] 10.7 mg/dL High 8.4 - 10. 4 mg/dL [facility] Chloride [Moles/Vol] 103 mmol/L 98 - 10 7 mmol/L [facility] CO2 [Moles/Vol] 21 mmol/L Low 22 - 30 mmol/L [facility] Creatinine [Mass/Vol] 1.34 mg/dL High 0.52 - 1.25 mg/dL [facility] EGFR IF NonAfrican Syrian 57.1 mL/min Abnormal 60 - PINF mL/min [...] - 10.7 10*3/uL [facility] Test Performed by [facility], [address] [place], [place] [id number] [place] [address] LAB [facility] CR Chest Portableon 12-02-19 22 CR Chest Portable Patient Name: CORRIE QUEEN Diagnostic Radiology ACCESSION EXAM DATE/TIME PROCEDURE ORDERING PROVIDER [id number] 12/01/2021 12:48 EDT CR Chest Portable [id number] TEMI THOMPSON CPT code 48049 Reason For Exam (CR Chest Portable) sob [...] Transcribed Date and Time: 12/01/2021 2:32 Normal [facility] Complete Urinalysison 2021 Appearance (U) Clear Normal Clear [facility] Comment on above: Result Comment: . Performed By: #### C UA2 #### [facility] [address] [place] [address] Bilirubin,Urine Negative Normal Negative [facility] Comment on above: Result Comment: . Performed By: #### C UA2 #### [facility] [address] [place] [address] Color (U) Yellow Normal Lt. Yellow [facility] Comment on above: Result Comment: . Performed By: #### C UA2 #### [facility] [address] [place] [address] Glucose Ql (U) Normal Normal Normal (<70) [facility] Comment on above: Result Comment: . Performed By: #### C UA2 #### [facility] [address] [place] [address] Ketone,Urine Negative Normal Negative [facility] Comment on above: Result Comment: . Performed By: #### C UA2 #### [facility] [address] [place] [address] Leukocytes,Urine Negative Normal Negative [facility] Comment on above: Result Comment: . Performed By: #### C UA2 #### [facility] [address] [place] [address] Nitrites,Urine Negative Normal Negative [facility] Comment on above: Result Comment: . Performed By: #### C UA2 #### [facility] [address] [place] [address] Occult Blood,Urine Negative Normal Negative [facility] Comment on above: Result Comment: . Performed By: #### C UA2 #### [facility] [address] [place] [address] pH,Urine 6.0 Normal 5.0-8.0 [facility] Comment on above: Result Comment: . Performed By: #### C UA2 #### [facility] [address] [place] [address] Specific [place],Urine 1.015 Normal 1.005 - 1.030 [facility] Comment on above: Result Comment: . Performed By: #### C UA2 #### [facility] [address] [place] [address] Total Protein,Urine Negative Normal Negative [facility] Comment on above: Result Comment: . Performed By: #### C UA2 #### [facility] [address] [place] [address] Urobilinogen,Urine Normal Normal Normal (0-1) [facility] Comment on above: Result Comment: . Performed By: #### C UA2 #### [facility] [address] [place] [address] ECHO Complete 2D W Doppler W Coloron 12-01-2021 TRANSTHORACIC ECHOCARDIOGRAM PATIENT: Corrie Queen STUDY DATE: 12/01/2021 : 1960 AGE: 61 HT/WT: 182.9 cm (72 107.1 kg in) (235.5 lb) GENDER: M BP: 85 / 56 LOCATION: [facility] PATIENT Inpatient [facility] STATUS: *ORDERING PHYSICIAN: * Teim Lynne *READING PHYSICIAN: * Alyssa Ag MD *CONSTRUCTION TEACHER: * Mari Parry -------- INDICATIONS: Chest pain. [...] ml/m^2 Aortic valve (more content not included)... [facility] Alyssa Ag MD - 12/01/2021 TRANSTHORACIC ECHOCARDIOGRAM PATIENT: Corrie Queen STUDY DATE: 12/01/2021 : 1960 AGE: 61 HT/WT: 182.9 cm (72 107.1 kg in) (235.5 lb) GENDER: M BP: 85 / 56 LOCATION: [facility] PATIENT Inpatient [facility] STATUS: *ORDERING PHYSICIAN: * Temi Lynne *READING PHYSICIAN: * Alyssa Ag MD *CONSTRUCTION TEACHER: * [place] -------- INDICATIONS: Chest pain. [...] 12/01/2021 17:40 P (more content not included)... [facility] Work Phone: ECHO Complete 2D W Doppler W ColorOrdered By: Alyssa Ag on 12-01-2021 [facility] Work Phone: ED Provider Noteon 2 ED [...] Comment: rarely Drug use: Yes Types: Marijuana ([place]) Social Determinants of Health Financial Resource Strain: [...] Response: Oriented Best Motor Response: Obeys commands Melany Coma Scale Score: 15 PHYSICAL EXAM (5+ [...] Constitutional: General: (more content not included)... Normal [facility] ED Provider Note Patient, Corrie Queen, [...] documentation. Barry Leon MD 12/01/21 1018 Normal [facility] EKG 12 Leadon 12-01-2021 [facility] Test Date: 2021-12-01 Pat Name: CORRIE QUEEN Department: 2AED Room: 06 Gender: M Club Former: RE : 1960 Requested By: TEMI LYNNE Order Number: [id number] Reading MD: Barry Leon Measurements Intervals [place] Rate: 60 P: 55 NE: 190 QRS: -73 QRSD: 111 T: 30 QT: 427 QTc: 425 Interpretive Statements Sinus rhythm Inferior infarct, old Consider anterior infarct Compared to ECG from 05-23-12, no significant change Electronically Signed On 12-01-2021 14:06:11 EDT by Barry Leon [facility] Barry Leon MD - 12/01/2021 [facility] Test Date: 2021-12-01 Pat Name: CORRIE QUEEN Department: 2AED Room: 06 Gender: M Club Former: RE : 1960 Requested By: TEMI LYNNE Order Number: [id number] Reading MD: Barry Leon Measurements Intervals [place] Rate: 60 P: 55 NE: 190 QRS: -73 QRSD: 111 T: 30 QT: 427 QTc: 425 Interpretive Statements Sinus rhythm Inferior infarct, old Consider anterior infarct Compared to ECG from 05-23-12, no significant change Electronically Signed On 12-01-2021 14:06:11 EDT by Barry Leon [facility] Work Phone: EKG 12 LeadOrdered By: Barry Leon on 12-01-2021 [facility] Work Phone: Echo Complete w/wo Contrasto n 12-01-2021 Echo Complete w/wo Contrast Patient Name: CORRIE QUEEN Ultrasound ACCESSION EXAM DATE/TIME PROCEDURE ORDERING PROVIDER [id number] 12/01/2021 15:51 EDT Echo Complete w/wo [id number] -TEMI LYNNE Contrast Reason For Exam (Echo Complete w/wo Contrast) chest pain Report TRANSTHORACIC ECHOCARDIOGRAM PATIENT: Corrie Queen STUDY DATE: 12/01/2021 : 1960 AGE: 61 HT/WT: 182.9 cm (72 107.1 kg in) (235.5 lb) GENDER: M BP: 85 / 56 LOCATION: [facility] PATIENT Inpatient [facility] STATUS: *ORDERING PHYSICIAN: * Temi Lynne *READING PHYSICIAN: * Alyssa Ag MD *CONSTRUCTION TEACHER: * Mari Parry -------- INDICATIONS: Chest pain. [...] lateral 10 (more content not included)... Normal [facility] Hemogram w/ Autodiffon 12-01 Abs Baso Cnt 0.0 10*3/uL Normal 0.0-0.2 [facility] Comment on above: Performed By: #### H EMDF, TSH5, LIPD2, CMP3M #### [facility] [address] [place] [address] Abs Neutrophile Cnt 13.8 10*3/uL High 1.8-7.0 [facility] Comment on above: Performed By: #### H EMDF, TSH5, LIPD2, CMP3M #### [facility] [address] [place] [address] Basophils/100 WBC (Bld) 0.2 % Normal 0.0-2.0 [facility] Comment on above: Performed By: #### H EMDF, TSH5, LIPD2, CMP3M #### [facility] [address] [place] [address] Eosinophils (Bld) [#/Vol] 0.9 10*3/uL High 0.0-0.5 [facility] Comment on above: Performed By: #### H EMDF, TSH5, LIPD2, CMP3M #### [facility] [address] [place] [address] Eosinophils/100 WBC (Bld) 5.7 % Normal 1.0-6.0 [facility] Comment on above: Performed By: #### H EMDF, TSH5, LIPD2, CMP3M #### [facility] [address] [place] [address] Erythrocyte distribution width (RBC) [Ratio] 13.6 % Normal 11.5-14.5 [facility] Comment on above: Performed By: #### H EMDF, TSH5, LIPD2, CMP3M #### [facility] [address] [place] [address] Granulocytes/100 WBC (Bld) 85.2 % High 40.0-80.0 [facility] Comment on above: Performed By: #### H EMDF, TSH5, LIPD2, CMP3M #### [facility] [address] [place] [address] Hematocrit (Bld) [Volume fraction] 45.8 % Normal 40.0-52.0 [facility] Comment on above: Performed By: #### H EMDF, TSH5, LIPD2, CMP3M #### [facility] [address] [place] [address] Hemoglobin (Bld) [Mass/Vol] 15.8 g/dL Normal 13.0-18.0 [facility] Comment on above: Performed By: #### H EMDF, TSH5, LIPD2, CMP3M #### [facility] [address] [place] [address] Lymphocytes (Bld) [#/Vol] 0.8 10*3/uL Low 1.0-4.3 [facility] Comment on above: Performed By: #### H EMDF, TSH5, LIPD2, CMP3M #### [facility] [address] [place] [address] Lymphocytes/100 WBC (Bld) 4.8 % Low 20.0-40.0 [facility] Comment on above: Performed By: #### H EMDF, TSH5, LIPD2, CMP3M #### [facility] [address] [place] [address] MCH (RBC) [Entitic mass] 30.5 pg Normal 26.0-34.0 [facility] Comment on above: Performed By: #### H EMDF, TSH5, LIPD2, CMP3M #### [facility] [address] [place] [address] MCHC 34.5 % Normal 32.0-36.0 [facility] Comment on above: Performed By: #### H EMDF, TSH5, LIPD2, CMP3M #### [facility] [address] [place] [address] MCV (RBC) [Entitic vol] 88.5 fL Normal 80.0-98.0 [facility] Comment on above: Performed By: #### H EMDF, TSH5, LIPD2, CMP3M #### [facility] [address] [place] [address] Monocytes (Bld) [#/Vol] 0.7 10*3/uL Normal 0.0-0.8 [facility] Comment on above: Performed By: #### H EMDF, TSH5, LIPD2, CMP3M #### [facility] [address] [place] [address] Monocytes/100 WBC (Bld) 4.1 % Normal 2.0-10.0 [facility] Comment on above: Performed By: #### H EMDF, TSH5, LIPD2, CMP3M #### [facility] [address] [place] [address] Platelet mean volume (Bld) [Entitic vol] 7.7 fL Normal 7.4-12.4 [facility] Comment on above: Result Comment: MPV is a calculated measurement using platelet volume ratio. Performed By: #### H EMDF, TSH5, LIPD2, CMP3M #### [facility] [address] [place] [address] Platelets (Bld) [#/Vol] 255 10*3/uL Normal 140-440 [facility] Comment on above: Performed By: #### H EMDF, TSH5, LIPD2, CMP3M #### [facility] [address] [place] [address] RBC (Bld) [#/Vol] 5.18 10*6/uL Normal 4.40-5.90 [facility] Comment on above: Performed By: #### H EMDF, TSH5, LIPD2, CMP3M #### [facility] [address] [place] [address] WBC (Bld) [#/Vol] 16.3 10*3/uL High 3.6-10.7 [facility] Comment on above: Performed By: #### H EMDF, TSH5, LIPD2, CMP3M #### [facility] [address] [place] [address] Hepatic Functionon 2 ALT [Catalytic activity/Vol] 20 U/L Normal 0-49 [facility] Comment on above: Result Comment: The ALT test is performed by an updated assay method. Please note that the reference intervals have been changed and are now sex specific. Performed By: #### H EMDF, TSH5, LIPD2, CMP3M #### [facility] [address] [place] [address] ALP [Catalytic activity/Vol] 58 U/L Normal 38-126 [facility] Comment on above: Performed By: #### H EMDF, TSH5, LIPD2, CMP3M #### [facility] [address] [place] [address] AST [Catalytic activity/Vol] 27 U/L Normal 15-46 [facility] Comment on above: Performed By: #### H EMDF, TSH5, LIPD2, CMP3M #### [facility] [address] [place] [address] Bilirubin [Mass/Vol] 0.7 mg/dL Normal 0.2-1.3 [facility] Comment on above: Performed By: #### H EMDF, TSH5, LIPD2, CMP3M #### [facility] [address] [place] [address] Bilirubin.indirect [Mass/Vol] 0.0 mg/dL Normal 0.0-0.3 [facility] Comment on above: Performed By: #### H EMDF, TSH5, LIPD2, CMP3M #### [facility] [address] [place] [address] Protein [Mass/Vol] 7.8 g/dL Normal 6.3-8.2 [facility] Comment on above: Performed By: #### H EMDF, TSH5, LIPD2, CMP3M #### [facility] [address] [place] [address] Albumin [Mass/Vol] 4.4 g/dL Normal 3.5-5.0 [facility] Comment on above: Performed By: #### H EMDF, TSH5, LIPD2, CMP3M #### [facility] [address] [place] [address] Hepatic Function Panelon Albumin [Mass/Vol] 4.4 g/dL 3.5 - 5 g/dL [facility] ALP (Bld) [Catalytic activity/Vol] 58 U/L 38 - 126 U/L [facility] ALT [Catalytic activity/Vol] 20 U/L 0 - 49 U/L [facility] Comment on above: The ALT test is perf ormed by an updated assay method. Please note that the reference intervals have been changed and are now sex specific. AST [Catalytic activity/Vol] 27 U/L 15 - 46 U/L [facility] Bilirubin [Mass/Vol] 0.7 mg/dL 0.2 - 1 .3 mg/dL [facility] Bilirubin.indirect [Mass/Vol] 0.0 mg/dL 0 - 0.3 mg/dL [facility] Protein [Mass/Vol] 7.8 g/dL 6.3 - 8.2 g/dL [facility] Lactate, Sepsison 12-01-2021 Lactate [Moles/Vol] 1.1 mmol/L 0.7 - 2 mmol/L [facility] Test Performed by [facility], [facility] [address] LAB [facility] Lactic Acid, Sepsison 2021 Lactate [Moles/Vol] 1.1 mmol/L Normal 0.7-2.0 [facility] Comment on above: Performed By: #### H EMDF, TSH5, LIPD2, CMP3M #### [facility] [address] [place] [address] Lipaseon 12-01-2021 Lipase [Catalytic activity/Vol] 24 U/L Normal 23-300 [facility] Comment on above: Performed By: #### H EMDF, TSH5, LIPD2, CMP3M #### [facility] [address] [place] [address] Lipase [Catalytic activity/Vol] 24 U/L 23 - 300 U/L [facility] No Panel Informationon 12-01 Test Performed by [facility], [address] [place], [place] [id number] [place] [address] [facility] Trop[facility]on 12-01-2021 Troponin I.cardiac [Mass/Vol] ng/mL 0 - 0.034 ng/mL [facility] Work Phone: Comment on above: . Test Performed by [facility], [address] [place], [place] [address] [facility] Work Phone: Troponin Ion 12-01-2021 Troponin I.cardiac [Mass/Vol] ng/mL Normal 0.000-0.034 [facility] Comment on above: Result Comment: . Performed By: #### H EMDF, TSH5, LIPD2, CMP3M #### [facility] [address] [place] [address] Urinalysison 12-01-2021 Appearance (U) Clear Clear NA [...] [pH] [facility] Comment on above: . Specific [place], Urine 1.015 S [facility] Comment on above: . Total Protein, Urine Negative Negativ e mg/dL [facility] Comment on above: . Urobilinogen, Urine Normal Normal (0-1) mg/dL [facility] Comment on above: . Test Performed by [facility], [address] [place], [place] [address] [facility] XR CHEST PORTABLEon 12-02-19 Patient Name: CORRIE QUEEN Diagnostic Radiology ACCESSION EXAM DATE/TIME PROCEDURE ORDERING PROVIDER [id number] 12/01/2021 12:48 EDT CR Chest Portable [id number] -TEMI LYNNE CPT code 19188 Reason For Exam (CR Chest Portable) sob [...] Transcribed Date and Time: 12/01/2021 2:[address] [address] Hema Miller MD - 12/01/2021 Patient Name: CORRIE QUEEN Diagnostic Radiology ACCESSION EXAM DATE/TIME PROCEDURE ORDERING PROVIDER [id number] 12/01/2021 12:48 EDT CR Chest Portable [id number] -TEMI LYNNE CPT code 21214 Reason For Exam (CR Chest Portable) sob [...] AHMAD Transcribed Date and Time: 12/01/2021 2:32 [facility] Work Phone: Radiology Study observation (narrative) [facility] Work Phone: XR CHEST PORTABLEOrdered By: Hema Miller on 12-01-2021 [facility] Work Phone: CULTURE URINEon 11-29-2021 CULTURE URINE CULTURE URINE --> Status: F No growth (<1,000 CFU/ml). Normal [facility] Comment on above: Performed By: #### C UA2 #### [facility] [address] [place] [address] Basic Metabolic Panelon 10-0 -2021 Anion gap [Moles/Vol] 10 mmol/L Normal 3-13 [facility] Comment on above: Performed By: #### H EMDF, TSH5, LIPD2, CMP3M #### [facility] [address] [place] [address] Calcium [Mass/Vol] 11.3 mg/dL High 8.4-10.4 [facility] Comment on above: Performed By: #### H EMDF, TSH5, LIPD2, CMP3M #### [facility] [address] [place] [address] CO2 [Moles/Vol] 21 mmol/L Low 22-30 [facility] Comment on above: Performed By: #### H EMDF, TSH5, LIPD2, CMP3M #### [facility] [address] [place] [address] Glucose [Mass/Vol] 135 mg/dL High 70-100 [facility] Comment on above: Performed By: #### H EMDF, TSH5, LIPD2, CMP3M #### [facility] [address] [place] [address] Urea nitrogen [Mass/Vol] 20 mg/dL High 7-17 [facility] Comment on above: Performed By: #### H EMDF, TSH5, LIPD2, CMP3M #### [facility] [address] [place] [address] Creatinine [Mass/Vol] 1.33 mg/dL High 0.52-1.25 [facility] Comment on above: Performed By: #### H EMDF, TSH5, LIPD2, CMP3M #### [facility] [address] [place] [address] GFR/1.73 sq M.predicted among blacks MDRD (S/P/Bld) [Vol rate/Area] 66.8 mL/min/{1.73_m2} Normal >60 [facility] Comment on above: Performed By: #### H EMDF, TSH5, LIPD2, CMP3M #### [facility] [address] [place] [address] GFR/1.73 sq M.predicted among non-blacks MDRD (S/P/Bld) [Vol rate/Area] 57.6 mL/min/{1.73_m2} Abnormal >60 [facility] Comment on above: Result Comment: KDIG [...] #### H EMDF, TSH5, LIPD2, CMP3M #### [facility] [address] [place] [address] Chloride [Moles/Vol] 105 mmol/L Normal 98-107 [facility] Comment on above: Performed By: #### H EMDF, TSH5, LIPD2, CMP3M #### [facility] [address] [place] [address] Potassium [Moles/Vol] 3.9 mmol/L Normal 3.5-5.1 [facility] Comment on above: Performed By: #### H EMDF, TSH5, LIPD2, CMP3M #### [facility] [address] [place] [address] Sodium [Moles/Vol] 136 mmol/L Normal 135-145 [facility] Comment on above: Performed By: #### H EMDF, TSH5, LIPD2, CMP3M #### [facility] [address] [place] [address] [place] Abdomen/Pelvis w/o Contra vik 11-28-2021 CT Abdomen/Pelvis w/o Contrast Patient Name: CORRIE QUEEN Computed Tomography ACCESSION EXAM DATE/TIME PROCEDURE ORDERING PROVIDER [id number] 11/27/2021 23:[address] Abdomen/Pelvis (No MD MIKE, TC PO, No IV) CPT code 36207 Reason For Exam (CT Abdomen/Pelvis (No PO, [...] Transcribed Date and Time: 11/27/2021 11:11 Normal [facility] Complete Urinalysison 2021 Bacteria LM.HPF (Urine sed) [#/Area] Negative Normal Negative [facility] Comment on above: Result Comment: . Performed By: #### C UA2 #### [facility] [address] [place] [address] Mucous Threads Few Normal Negative [facility] Comment on above: Result Comment: . Performed By: #### C UA2 #### [facility] [address] [place] [address] RBC, Urine 0 - 2 Normal 0-2 [facility] Comment on above: Result Comment: . Performed By: #### C UA2 #### [facility] [address] [place] [address] Squamous Epithelial 0 - 2 Normal 3-5 [facility] Comment on above: Result Comment: . Performed By: #### C UA2 #### [facility] [address] [place] [address] VOLUME, URINE 12 ml Normal [facility] Comment on above: Result Comment: . Performed By: #### C UA2 #### [facility] [address] [place] [address] WBC, Urine 3 - 5 Normal 0-5 [facility] Comment on above: Result Comment: . Performed By: #### C UA2 #### [facility] [address] [place] [address] Appearance (U) Clear Normal Clear [facility] Comment on above: Result Comment: . Performed By: #### C UA2 #### [facility] [address] [place] [address] Bilirubin,Urine Negative Normal Negative [facility] Comment on above: Result Comment: . Performed By: #### C UA2 #### [facility] [address] [place] [address] Color (U) LIGHT YELLOW Normal Lt. Yellow [facility] Comment on above: Result Comment: . Performed By: #### C UA2 #### [facility] [address] [place] [address] Glucose Ql (U) Normal Normal Normal (<70) [facility] Comment on above: Result Comment: . Performed By: #### C UA2 #### [facility] [address] [place] [address] Ketone,Urine Negative Normal Negative [facility] Comment on above: Result Comment: . Performed By: #### C UA2 #### [facility] [address] [place] [address] Leukocytes,Urine 25 Irina/uL Abnormal Negative [facility] Comment on above: Result Comment: . Performed By: #### C UA2 #### [facility] [address] [place] [address] Nitrites,Urine Negative Normal Negative [facility] Comment on above: Result Comment: . Performed By: #### C UA2 #### [facility] [address] [place] [address] Occult Blood,Urine Negative Normal Negative [facility] Comment on above: Result Comment: . Performed By: #### C UA2 #### [facility] [address] [place] [address] pH,Urine 5.0 Normal 5.0-8.0 [facility] Comment on above: Result Comment: . Performed By: #### C UA2 #### [facility] [address] [place] [address] Specific [place],Urine 1.011 Normal 1.005 - 1.030 [facility] Comment on above: Result Comment: . Performed By: #### C UA2 #### [facility] [address] [place] [address] Total Protein,Urine Negative Normal Negative [facility] Comment on above: Result Comment: . Performed By: #### C UA2 #### [facility] [address] [place] [address] Urobilinogen,Urine Normal Normal Normal (0-1) [facility] Comment on above: Result Comment: . Performed By: #### C UA2 #### [facility] [address] [place] [address] Hemogram w/ Autodiffon 11-28 Abs Baso Cnt 0.1 10*3/uL Normal 0.0-0.2 [facility] Comment on above: Performed By: #### H EMDF, TSH5, LIPD2, CMP3M #### [facility] [address] [place] [address] Abs Neutrophile Cnt 11.8 10*3/uL High 1.8-7.0 [facility] Comment on above: Performed By: #### H EMDF, TSH5, LIPD2, CMP3M #### [facility] [address] [place] [address] Basophils/100 WBC (Bld) 0.4 % Normal 0.0-2.0 [facility] Comment on above: Performed By: #### H EMDF, TSH5, LIPD2, CMP3M #### [facility] [address] [place] [address] Eosinophils (Bld) [#/Vol] 0.3 10*3/uL Normal 0.0-0.5 [facility] Comment on above: Performed By: #### H EMDF, TSH5, LIPD2, CMP3M #### [facility] [address] [place] [address] Eosinophils/100 WBC (Bld) 2.5 % Normal 1.0-6.0 [facility] Comment on above: Performed By: #### H EMDF, TSH5, LIPD2, CMP3M #### [facility] [address] [place] [address] Erythrocyte distribution width (RBC) [Ratio] 13.2 % Normal 11.5-14.5 [facility] Comment on above: Performed By: #### H EMDF, TSH5, LIPD2, CMP3M #### [facility] [address] [place] [address] Granulocytes/100 WBC (Bld) 86.0 % High 40.0-80.0 [facility] Comment on above: Performed By: #### H EMDF, TSH5, LIPD2, CMP3M #### [facility] [address] [place] [address] Hematocrit (Bld) [Volume fraction] 47.1 % Normal 40.0-52.0 [facility] Comment on above: Performed By: #### H EMDF, TSH5, LIPD2, CMP3M #### [facility] [address] [place] [address] Hemoglobin (Bld) [Mass/Vol] 17.0 g/dL Normal 13.0-18.0 [facility] Comment on above: Performed By: #### H EMDF, TSH5, LIPD2, CMP3M #### [facility] [address] [place] [address] Lymphocytes (Bld) [#/Vol] 0.8 10*3/uL Low 1.0-4.3 [facility] Comment on above: Performed By: #### H EMDF, TSH5, LIPD2, CMP3M #### [facility] [address] [place] [address] Lymphocytes/100 WBC (Bld) 5.5 % Low 20.0-40.0 [facility] Comment on above: Performed By: #### H EMDF, TSH5, LIPD2, CMP3M #### [facility] [address] [place] [address] MCH (RBC) [Entitic mass] 31.6 pg Normal 26.0-34.0 [facility] Comment on above: Performed By: #### H EMDF, TSH5, LIPD2, CMP3M #### [facility] [address] [place] [address] MCHC 36.1 % High 32.0-36.0 [facility] Comment on above: Performed By: #### H EMDF, TSH5, LIPD2, CMP3M #### [facility] [address] [place] [address] MCV (RBC) [Entitic vol] 87.5 fL Normal 80.0-98.0 [facility] Comment on above: Performed By: #### H EMDF, TSH5, LIPD2, CMP3M #### [facility] [address] [place] [address] Monocytes (Bld) [#/Vol] 0.7 10*3/uL Normal 0.0-0.8 [facility] Comment on above: Performed By: #### H EMDF, TSH5, LIPD2, CMP3M #### [facility] [address] [place] [address] Monocytes/100 WBC (Bld) 5.2 % Normal 2.0-10.0 [facility] Comment on above: Performed By: #### H EMDF, TSH5, LIPD2, CMP3M #### [facility] [address] [place] [address] Platelet mean volume (Bld) [Entitic vol] 9.0 fL Normal 7.4-12.4 [facility] Comment on above: Result Comment: MPV is a calculated measurement using platelet volume ratio. Performed By: #### H EMDF, TSH5, LIPD2, CMP3M #### [facility] [address] [place] [address] Platelets (Bld) [#/Vol] 240 10*3/uL Normal 140-440 [facility] Comment on above: Performed By: #### H EMDF, TSH5, LIPD2, CMP3M #### [place] [address] [place] [address] RBC (Bld) [#/Vol] 5.38 10*6/uL Normal 4.40-5.90 [facility] Comment on above: Performed By: #### H EMDF, TSH5, LIPD2, CMP3M #### [facility] [address] [place] [address] WBC (Bld) [#/Vol] 13.7 10*3/uL High 3.6-10.7 [facility] Comment on above: Performed By: #### H EMDF, TSH5, LIPD2, CMP3M #### [facility] [address] [place] [address] Basic Metabolic Panelon 10-0 -2021 Anion gap [Moles/Vol] 10 mmol/L 3 - 13 mmol/L [facility] Work Phone: Calcium [Mass/Vol] 11.3 mg/dL High 8.4 - 10. 4 mg/dL [facility] Work Phone: Chloride [Moles/Vol] 105 mmol/L 98 - 10 7 mmol/L [facility] Work Phone: CO2 [Moles/Vol] 21 mmol/L Low 22 - 30 mmol/L [facility] Work Phone: [phone] Creatinine [Mass/Vol] 1.33 mg/dL High 0.52 - 1.25 mg/dL [facility] Work Phone: [phone] EGFR IF NonAfrican Syrian 57.6 mL/min Abnormal 60 - PINF mL/min [facility] Work Phone: [phone] Comment on above: KDIGO guidelines pro vide [...] rate/Area] 66.8 mL/min/{1.73_m2} 60 - PINF mL/min [facility] Work Phone: [phone] Glucose [Mass/Vol] 135 mg/dL High 70 - 100 mg/dL [facility] Work Phone: [phone] Potassium [Moles/Vol] 3.9 mmol/L 3.5 - 5.1 mmol/L [facility] Work Phone: [phone] Sodium [Moles/Vol] 136 mmol/L 135 - 145 mmol/L [facility] Work Phone: [phone] Urea nitrogen (BldV) [Mass/Vol] 20 mg/dL High 7 - 17 mg/dL [facility] Work Phone: [phone] CBC with Auto Differentialon 11-27-2021 Absolute Baso # 0.1 10*3/uL 0 - 0.2 10*3/uL [facility] Work Phone: Absolute Neut # 11.8 10*3/uL High 1.8 - 7 10*3/uL [facility] Work Phone: [phone] Basophils/100 WBC (Bld) 0.4 % 0 - 2 % [facility] Work Phone: Eosinophils (Bld) [#/Vol] 0.3 10*3/uL 0 - 0.5 10*3/uL [facility] Work Phone: Eosinophils/100 WBC (Bld) 2.5 % 1 - 6 % [facility] Work Phone: Granulocytes/100 WBC (Bld) 86.0 % High 40 - 80 % [facility] Work Phone: Hematocrit (Bld) [Volume fraction] 47.1 % 40 - 52 % [facility] Work Phone: Hemoglobin (Bld) [Mass/Vol] 17.0 g/dL 13 - 18 g/dL [facility] Work Phone: Interpretation and review of laboratory results Abnormal [facility] Work Phone: Lymphocytes (Bld) [#/Vol] 0.8 10*3/uL Low 1 - 4.3 10*3/uL [facility] Work Phone: Lymphocytes/100 WBC (Bld) 5.5 % Low 20 - 40 % [facility] Work Phone: MCH (RBC) [Entitic mass] 31.6 pg 26 - [address] [facility] Work Phone: MCHC (RBC) [Mass/Vol] 36.1 % High 32 - 36 % [facility] Work Phone: MCV (RBC) [Entitic vol] 87.5 fL 80 - 98 fL [facility] Work Phone: Monocytes (Bld) [#/Vol] 0.7 10*3/uL 0 - 0.8 10*3/uL [facility] Work Phone: Monocytes/100 WBC (Bld) 5.2 % 2 - 10 % [facility] Work Phone: Platelet distribution width (Bld) [Ratio] 13.2 % 11.5 - 14.5 % [employer] Phone: Platelet mean volume (Bld) [Entitic vol] 9.0 fL 7.4 - 12.4 fL [facility] Work Phone: Comment on above: MPV is a calculated measurement using platelet volume ratio. Platelets (Bld) [#/Vol] 240 10*3/uL 140 - 440 10*3/uL [facility] Work Phone: [phone] RBC (Bld) [#/Vol] 5.38 10*6/uL 4.4 - 5.9 10*6/uL [facility] Work Phone: [phone] WBC (Bld) [#/Vol] 13.7 10*3/uL High 3.6 - 10.7 10*3/uL [facility] Work Phone: Test Performed by [employer] [facility], [address] [place] [address] LAB [facility] Work Phone: CT Abdomen Pelvis Wo Contras ton 11-27-2021 Patient Name: CORRIE QUEEN Computed Tomography ACCESSION EXAM DATE/TIME PROCEDURE ORDERING PROVIDER [id number] 11/27/2021 23:[address] Abdomen/Pelvis (No MD MIKE, TC PO, No IV) CPT code 08239 Reason For Exam (CT Abdomen/Pelvis (No PO, [...] WENDELL Transcribed Date and Time: 11/27/2021 11:11 [facility] Darrick Luke MD - 11/27/2021 Patient Name: CORRIE QUEEN Computed Tomography ACCESSION EXAM DATE/TIME PROCEDURE ORDERING PROVIDER [id number] 11/27/2021 23:[address] Abdomen/Pelvis (No MD MIKE, TC PO, No IV) CPT code 25272 Reason For Exam (CT Abdomen/Pelvis (No PO, [...] WENDELL Transcribed Date and Time: 11/27/2021 11:11 [facility] Work Phone: Radiology Study observation (narrative) [facility] Work Phone: [phone] CT Abdomen Pelvis Wo Contras tOrdered By: Darrick Luke on 11-27-2021 [facility] Work Phone: No Panel Informationon 11-27 Interpretation and review of laboratory results Abnormal [facility] Work Phone: Test Performed by [facility] [employer] [facility], [address] [place], [place] [address] , [address] LAB [facility] Work Phone: Urinalysison 11-27-2021 Appearance (U) Clear Clear NA [facility] Work Phone: [phone] Comment on above: . Bacteria, UA Negative Negative /[HPF] [facility] Work Phone: [phone] Comment on above: . Bilirubin Urine Negative Negative mg/dL [facility] Work Phone: [phone] Comment on above: . Color (U) LIGHT YELLOW Lt. Yellow NA [facility] Work Phone: [phone] Comment on above: . Glucose, Ur Normal Normal (<70) mg/dL [facility] Work Phone: [phone] Comment on above: . Ketones Ql (U) Negative Negative mg/dL [facility] Work Phone: [phone] Comment on above: . LEUKOCYTES, UA 25 Abnormal Negative Irina/uL [facility] Work Phone: [phone] Comment on above: . Mucous Threads Few Negative /[LPF] [facility] Work Phone: [phone] Comment on above: . Nitrite, Urine Negative Negative NA [facility] Work Phone: [phone] Comment on above: . Occult Blood,Urine Negative Negative mg/dL [facility] Work Phone: [phone] Comment on above: . pH (U) 5.0 [pH] [facility] Work Phone: [phone] Comment on above: . RBC, UA /[HPF] 0 - 2 /[HPF] [facility] Work Phone: [phone] Comment on above: . Specific [place], Urine 1.[address] [facility] Work Phone: [phone] Comment on above: . Squam Epithel, UA 0-2 3 - 5 /[HPF] [facility] Work Phone: [phone] Comment on above: . Total Protein, Urine Negative Negativ e mg/dL [facility] Work Phone: [phone] Comment on above: . Urobilinogen, Urine Normal Normal (0-1) mg/dL [facility] Work Phone: [phone] Comment on above: . Volume [address] [facility] Work Phone: [phone] Comment on above: . WBC, UA /[HPF] 0 - 5 /[HPF] [facility] Work Phone: [phone] Comment on above: . [facility] Brain w/ + w/o Contrast Patient Name: CORRIE QUEEN Magnetic Resonance Imaging ACCESSION EXAM DATE/TIME PROCEDURE ORDERING PROVIDER [id number] 10/18/2021 12:20 EDT MRI Brain w/ + w/o [id number], Contrast ROCIO CPT code 78770 Reason For Exam (MRI Brain w/ + [...] Transcribed Date and Time: 10/20/2021 8:17 Normal [facility] OT Bone Density DEXA Francisco Ske river 04-12-2021 OT Bone Density DEXA Francisco Skeleton Patient Name: CORRIE QUEEN Bone Density ACCESSION EXAM DATE/TIME PROCEDURE ORDERING PROVIDER [id number] 04/12/2021 09:15 EST OT Bone Density DEXA Francisco DO BENITO RYAN D Skeleton CPT code 08911 Reason For Exam (OT Bone Density DEXA Francisco Skeleton) osteoporosis evaluation. elevated PTH Report DXA BONE DENSITOMETRY: CLINICAL INDICATION: osteoporosis evaluation. elevated PTH. Screening for osteoporosis. COMPARISON: None TECHNIQUE: Quantitative bone mineral densitometry of the hip, radius and lumbar spine was performed with a dual energy x-ray observed absorptiometry device - Innovate/Protect at some institutions, HOLOGIC at others. Regions [...] recommendations for prevention of bone loss include: 2663-5389 mg calcium intake per day for adults [...] [place] of Knowledge Evidence - based Summaries. [facility] [employer] Education [employer] 2017. Report Dictated on Final Dictating Physician: MD VOGT JAMES Signed Date and Time: 04/13/2021 12:02 pm Signed by: MD VOGT JAMES Transcribed Date and Time: 04/13/2021 12:04 Normal [facility] [employer] [facility] OT Bone Density DEXA Axial S noriaurelianooneal 04-12-2021 OT Bone Density DEXA Axial Skeleton Patient Name: CORRIE QUEEN Bone Density ACCESSION EXAM DATE/TIME PROCEDURE ORDERING PROVIDER [id number] 04/12/2021 09:15 EST OT Bone Density DEXA DO THONGKENNEDI Axial Skeleton CPT code 99008 Reason For Exam (OT Bone Density DEXA Axial Skeleton) osteoporosis, at risk for osteoporosis. Report DXA BONE DENSITOMETRY: CLINICAL INDICATION: osteoporosis evaluation. elevated PTH. Screening for osteoporosis. COMPARISON: None TECHNIQUE: Quantitative bone mineral densitometry of the hip, radius and lumbar spine was performed with a dual energy x-ray observed absorptiometry device - Innovate/Protect at some institutions, HOLOGIC at others. Regions [...] recommendations for prevention of bone loss include: 3714-7238 mg calcium intake per day for adults [...] [place] of Knowledge Evidence - based Summaries. [facility] Center[facility] [employer] for Education and Research 2017. Report Dictated on Final Dictating Physician: MD VOGT JAMES Signed Date and Time: 04/13/2021 12:02 pm Signed by: MD VOGT JAMES Transcribed Date and Time: 04/13/2021 12:03 Normal [facility] Comprehensive Metabolic Pane sumeet 12-26-2018 Albumin [Mass/Vol] 4.8 g/dL 3.5 - 5 g/dL [place] ALP [Catalytic activity/Vol] 51 U/L 38 - 126 U/L [place] ALT [Catalytic activity/Vol] 30 U/L 13 - 69 U/L [place] Anion gap [Moles/Vol] 8 mmol/L [place] AST [Catalytic activity/Vol] 25 U/L 15 - 46 U/L [place] Bilirubin Ql (U) 0.4 mg/dL 0.2 - 1.3 mg/dL [place] Calcium [Mass/Vol] 11.3 mg/dL High 8.4 - 10. 4 mg/dL [place] Chloride [Moles/Vol] 108 mmol/L High 98 - 10 7 mmol/L [place] CO2 [Moles/Vol] 24 mmol/L 22 - 30 mmol/L [place] Creatinine [Mass/Vol] 1.23 mg/dL 0.52 - 1.25 mg/dL [place] EGFR IF NonAfrican Syrian >60.0 >60 mL/min [place] Comment on above: Source- MDRD equatio n with creatinine calibration to IDMS(NKDEP) eGFR not recommended for drug dose adjustment GFR/1.73 sq M predicted among blacks MDRD (S/P/Bld) [Vol rate/Area] mL/min/{1.73_m2} >60 mL/min [place] Glucose [Mass/Vol] 104 mg/dL High 70 - 100 mg/dL [place] Interpretation and review of laboratory results Abnormal [place] Potassium [Moles/Vol] 4.3 mmol/L 3.5 - 5.1 mmol/L [place] Protein [Mass/Vol] 7.7 g/dL 6.3 - 8.2 g/dL [place] Sodium [Moles/Vol] 140 mmol/L 135 - 145 mmol/L [place] Urea nitrogen [Mass/Vol] 19 mg/dL 7 - 20 mg/dL [place] Test Performed by [facility], [address] Creatinine, 24 HR Urineon Creatinine, 24H Ur 1.8 g/(24.h) 1 - 1.8 g/(24.h) [place] Creatinine, Urine 94.3 mg/dL [place] Otheron 12-26-2018 Test Performed by [email or web address], [address] [place] [address] POCT calcium ionizedon 12-26 Interpretation and review of laboratory results Abnormal [place] PH, IONIZED CALCIUM 7.36 [place] POC Ionized Calcium 5.30 mg/dL High 4.3 - 5. 2 mg/dL [place] Comment on above: Performed by CLIA ID : [id number] [place], [place] Test Performed by [facility], [address] PTH, Intacton 12-26-2018 Pth Intact 27 pg/mL 15 - 63 pg/mL [place] Test Performed by [facility] [employer] [facility], [address] [place] [address] Prolactinon 12-26-2018 Prolactin 13.7 ng/mL 3.7 - 17.9 ng/mL [place] Test Performed by [facility] [employer] [facility], [address] [place] [address] Sodium, urine, 24 houron Interpretation and review of laboratory results Abnormal [place] Sodium, 24H Ur 238 mmol/(24.h) High 40 - 220 mmol/(24.h) [place] Total Volume 1950 mL [place] T4, Freeon 12-26-2018 Free T4 [Mass/Vol] 0.87 ng/dL 0.78 - 2. 19 ng/dL [place], [place] Test Performed by [facility], [address] , [address] TSH without Reflexon 019 TSH Qn 3.019 u[IU]/mL 0.465 - 4.68 u[IU]/mL [place], [place] Test Performed by [facility], [address] , [address] Vitamin D 25 Hydroxyon 12-26 Vit D, 25-Hydroxy 40 ng/mL 30 - 100 ng/mL [place], [place] Comment on above: Therapy is based on measurement of Total 25-OHD with the following classification levels: Less than 20 ng/mL: Indicative of Vit D deficiency 20-30 ng/mL: Suggests Vit D insufficiency Optimal: Greater than or equal to 30 ng/mL Test performed by [employer] Competitive Immunoassay, measuring Total Vitamin D, not individual fractions. Test Performed by [facility], [address] Vital Signs Date Time Vital Sign Value Performing Clinician Faci lity 12-02-2024 13:25-0400 Body height 187.[address] Justice Bailey DO Work Phone: [facility] 12-02-2024 13:25-0400 Body mass index (BMI) [Ratio] 28.8 kg/m2 Dr. Justice Bailey DO Work Phone: [facility] 12-02-2024 13:25-0400 Body weight 102.[address] Justice Bailey DO Work Phone: [facility] 11-09-2024 09:23-0400 Body height 187.[address] Justice Bailey DO Work Phone: [facility] 11-09-2024 09:23-0400 Body mass index (BMI) [Ratio] 28.2 kg/m2 Dr. Justice Bailey DO Work Phone: [facility] 11-09-2024 09:23-0400 Body weight 99.[address] Justice Bailey DO Work Phone: [facility] 10-08-2024 09:03-0400 Body height 187.[address] Justice Bailey DO Work Phone: [facility] 10-08-2024 09:03-0400 Body mass index (BMI) [Ratio] 30.2 kg/m2 Dr. Justice Bailey DO Work Phone: [facility] 10-08-2024 09:03-0400 Body temperature 97.6 [degF] Dr. Justice Bailey DO Work Phone: [facility] 10-08-2024 09:03-0400 Body weight 106.[address] Justice Bailey DO Work Phone: [facility] 10-08-2024 09:03-0400 Diastolic blood pressure 88 mm[Hg] Dr. Justice Bailey DO Work Phone: [facility] 10-08-2024 09:03-0400 Heart rate 90 /min Dr. Justice Bailey DO Work Phone: [facility] 10-08-2024 09:03-0400 Respiratory rate 16 /min Dr. Justice Baiely DO Work Phone: [facility] 10-08-2024 09:03-0400 SaO2% (BldA) [Mass fraction] 94 % Dr. Justice Bailey DO Work Phone: [facility] 10-08-2024 09:03-0400 Systolic blood pressure 138 mm[Hg] Dr. Justice Bailey DO Work Phone: [facility] 10-03-2024 12:33-0400 Diastolic blood pressure 73 mm[Hg] Dr. Justice Bailey DO Work Phone: [facility] 10-03-2024 12:33-0400 Heart rate 70 /min Dr. Justice Bailey DO Work Phone: [facility] 10-03-2024 12:33-0400 Systolic blood pressure 151 mm[Hg] Dr. Justice Bailey DO Work Phone: [facility] 10-03-2024 10:33-0400 Body height 187.[address] Justice Bailey DO Work Phone: [facility] 10-03-2024 10:33-0400 Body mass index (BMI) [Ratio] 30.1 kg/m2 Dr. Justice Bailey DO Work Phone: [facility] 10-03-2024 10:33-0400 Body temperature 97.6 [degF] Dr. Justice Bailey DO Work Phone: [facility] 10-03-2024 10:33-0400 Body weight 106.[address] Justice Bailey DO Work Phone: [facility] 10-03-2024 10:33-0400 Respiratory rate 18 /min Dr. Justice Bailey DO Work Phone: [facility] 10-03-2024 10:33-0400 SaO2% (BldA) [Mass fraction] 98 % Dr. Justice Bailey DO Work Phone: [facility] 08-11-2024 15:31-0400 Body height 187.96 cm Dolly Clarke PA Work Phone: [facility] 08-11-2024 15:31-0400 Body mass index (BMI) [Ratio] 30 kg/m2 Dolly SHAFFER Work Phone: [facility] 08-11-2024 15:31-0400 Body temperature 97.4 [degF] Dolly Clarke PA Work Phone: [facility] 08-11-2024 15:31-0400 Body weight 106.25 kg Dolly Clarek PA Work Phone: [facility] 08-11-2024 15:31-0400 Diastolic blood pressure 60 mm[Hg] Dolly Clarke PA Work Phone: [facility] 08-11-2024 15:31-0400 Heart rate 83 /min Dolly Clarke PA Work Phone: [facility] 08-11-2024 15:31-0400 Respiratory rate 16 /min Dolly Clarke PA Work Phone: [facility] 08-11-2024 15:31-0400 SaO2% (BldA) [Mass fraction] 92 % Dolly Clarke PA Work Phone: [facility] 08-11-2024 15:31-0400 Systolic blood pressure 102 mm[Hg] Dolly Clarke PA Work Phone: [facility] 08-02-2024 10:26-0400 Body temperature 97.8 [degF] Dolly Clarke PA Work Phone: [facility] 08-02-2024 10:26-0400 Diastolic blood pressure 83 mm[Hg] Dolly Clarke PA Work Phone: [facility] 08-02-2024 10:26-0400 Heart rate 66 /min Dolly Clarke PA Work Phone: [facility] 08-02-2024 10:26-0400 Respiratory rate 15 /min Dolly Clarke PA Work Phone: [facility] 08-02-2024 10:26-0400 SaO2% (BldA) [Mass fraction] 97 % Dolly Clarke PA Work Phone: [facility] 08-02-2024 10:26-0400 Systolic blood pressure 125 mm[Hg] Dolly Clarke PA Work Phone: [facility] 08-02-2024 08:47-0400 Body height 187.96 cm Dolly Clarke PA Work Phone: [facility] 08-02-2024 08:47-0400 Body mass index (BMI) [Ratio] 29.9 kg/m2 Dolly Clarke PA Work Phone: [facility] 08-02-2024 08:47-0400 Body weight 105.68 kg Dolly Clarke PA Work Phone: [facility] 07-17-2024 08:15-0400 Body mass index (BMI) [Ratio] 30.2 kg/m2 Dolly Clarke PA Work Phone: [facility] 07-17-2024 08:15-0400 Body weight 106.76 kg Dolly Clarke PA Work Phone: [facility] 07-17-2024 08:15-0400 Diastolic blood pressure 82 mm[Hg] Dolly Clarke PA Work Phone: [facility] 07-17-2024 08:15-0400 Heart rate 70 /min Dolly Clarke PA Work Phone: [facility] 07-17-2024 08:15-0400 SaO2% (BldA) [Mass fraction] 95 % Dolly Clarke PA Work Phone: [facility] 07-17-2024 08:15-0400 Systolic blood pressure 153 mm[Hg] Dolly Clarke PA Work Phone: [facility] 05-28-2024 12:18-0400 Body height 187.96 cm Sanjana Garciao [employer] Work Phone: [facility] 05-28-2024 12:18-0400 Body temperature 97.9 [degF] Sanjana Garciao [employer] Work Phone: [facility] 05-28-2024 12:18-0400 Diastolic blood pressure 76 mm[Hg] Sanjana Garciao [employer] Work Phone: [facility] 05-28-2024 12:18-0400 Heart rate 80 /min Sanjana Garciao [employer] Work Phone: [facility] 05-28-2024 12:18-0400 SaO2% (BldA) [Mass fraction] 95 % Sanjana Garciao [employer] Work Phone: [facility] 05-28-2024 12:18-0400 Systolic blood pressure 122 mm[Hg] Sanjana Garciao [employer] Work Phone: [facility] 03-31-2024 10:21-0500 Body mass index (BMI) [Ratio] 30.5 kg/m2 Sanjanajazzy Gillullo [employer] Work Phone: [facility] 03-31-2024 10:21-0500 Body temperature 97 [degF] Sanjanajazzy Gillullo [employer] Work Phone: [facility] 03-31-2024 10:21-0500 Body weight 107.95 kg Sanjanajazzy Gillullo [employer] Work Phone: [facility] 03-31-2024 10:21-0500 Diastolic blood pressure 68 mm[Hg] Sanjana Ferullo [employer] Work Phone: [facility] 03-31-2024 10:21-0500 Heart rate 67 /min Sanjana Jairoullo [employer] Work Phone: [facility] 03-31-2024 10:21-0500 Respiratory rate 16 /min Sanjana Jairoullo [employer] Work Phone: [facility] 03-31-2024 10:21-0500 SaO2% (BldA) [Mass fraction] 93 % Sanjana Ferullo [employer] Work Phone: [facility] 03-31-2024 10:21-0500 Systolic blood pressure 124 mm[Hg] Sanjanajazzy Gillullo [employer] Work Phone: [facility] 03-18-2024 13:30-0500 Body temperature 98.2 [degF] Sanjana Jairoullo [employer] Work Phone: [facility] 03-18-2024 13:30-0500 Body weight 109.76 kg Sanjana Ferullo [employer] Work Phone: [facility] 03-18-2024 13:30-0500 Diastolic blood pressure 77 mm[Hg] Sanjana Ferullo [employer] Work Phone: [facility] 03-18-2024 13:30-0500 Heart rate 76 /min Sanjana Ferullo [employer] Work Phone: [facility] 03-18-2024 13:30-0500 Respiratory rate 16 /min Sanjana Hale [employer] Work Phone: [facility] 03-18-2024 13:30-0500 SaO2% (BldA) [Mass fraction] 94 % Sanjana Garciao [employer] Work Phone: [facility] 03-18-2024 13:30-0500 Systolic blood pressure 138 mm[Hg] Sanjana Garciao [employer] Work Phone: [facility] 02-25-2024 10:24-0500 Body mass index (BMI) [Ratio] 30.6 kg/m2 Sanjana Garciao [employer] Work Phone: [facility] 02-25-2024 10:24-0500 Body temperature 98.3 [degF] Sanjana Garciao [employer] Work Phone: [facility] 02-25-2024 10:24-0500 Body weight 108.12 kg Sanjana Hale [employer] Work Phone: [facility] 02-25-2024 10:24-0500 Diastolic blood pressure 84 mm[Hg] Sanjana Garciao [employer] Work Phone: [facility] 02-25-2024 10:24-0500 Heart rate 78 /min Sanjana Hale [employer] Work Phone: [facility] 02-25-2024 10:24-0500 SaO2% (BldA) [Mass fraction] 96 % Sanjana Garciao [employer] Work Phone: [facility] 02-25-2024 10:24-0500 Systolic blood pressure 150 mm[Hg] Sanjana Garciao [employer] Work Phone: [facility] 07-31-2023 09:15-0400 Body height 188 cm Rocio Ruiz MD Work Phone: [facility] 07-31-2023 09:15-0400 Body mass index (BMI) [Ratio] 29.79 kg/m2 Rocio Ruiz MD Work Phone: [facility] 07-31-2023 09:15-0400 Body weight 105.23 kg Rocio Ruiz MD Work Phone: [facility] 07-31-2023 09:15-0400 Diastolic blood pressure 80 mm[Hg] Rocio Ruiz MD Work Phone: [facility] 07-31-2023 09:15-0400 Systolic blood pressure 118 mm[Hg] Rocio Ruiz MD Work Phone: [facility] 06-06-2023 10:56-0400 Body height 187.[address] Ryan Ceja Work Phone: [facility] 06-06-2023 10:56-0400 Body mass index (BMI) [Ratio] 30.4 kg/m2 Dr. Ryan Ceja Work Phone: [facility] 06-06-2023 10:56-0400 Body temperature 98.1 [degF] Dr. Ryan Ceja Work Phone: [facility] 06-06-2023 10:56-0400 Body weight 107.[address] Ryan Ceja Work Phone: [facility] 06-06-2023 10:56-0400 Diastolic blood pressure 80 mm[Hg] Dr. Ryan Ceja Work Phone: [facility] 06-06-2023 10:56-0400 Heart rate 77 /min Dr. Ryan Ceja Work Phone: [facility] 06-06-2023 10:56-0400 Respiratory rate 17 /min Dr. Ryan Ceja Work Phone: [facility] 06-06-2023 10:56-0400 SaO2% (BldA) [Mass fraction] 98 % Dr. Ryan Ceja Work Phone: [facility] 06-06-2023 10:56-0400 Systolic blood pressure 148 mm[Hg] Dr. Ryan Ceja Work Phone: [facility] 05-09-2023 15:00-0400 Body height 187.[address] Ryan Ceja Work Phone: [facility] 05-09-2023 15:00-0400 Body mass index (BMI) [Ratio] 30.8 kg/m2 Dr. Ryan Cjea Work Phone: [facility] 05-09-2023 15:00-0400 Body temperature 98.8 [degF] Dr. yRan Ceja Work Phone: [facility] 05-09-2023 15:00-0400 Body weight 108.[address] Ryan Ceja Work Phone: [facility] 05-09-2023 15:00-0400 Diastolic blood pressure 62 mm[Hg] Dr. Ryan Ceja Work Phone: [facility] 05-09-2023 15:00-0400 Heart rate 74 /min Dr. Ryan Ceja Work Phone: [facility] 05-09-2023 15:00-0400 Respiratory rate 18 /min Dr. Ryan Ceja Work Phone: [facility] 05-09-2023 15:00-0400 SaO2% (BldA) [Mass fraction] 95 % Dr. Ryan Ceja Work Phone: [facility] 05-09-2023 15:00-0400 Systolic blood pressure 112 mm[Hg] Dr. Ryan Ceja Work Phone: [facility] 03-21-2023 08:44-0500 Body height 187.[address] Ryan Ceja Work Phone: [facility] 03-21-2023 08:44-0500 Body mass index (BMI) [Ratio] 30.4 kg/m2 Dr. Ryan Ceja Work Phone: [facility] 03-21-2023 08:44-0500 Body temperature 97.2 [degF] Dr. Ryan Ceja Work Phone: [facility] 03-21-2023 08:44-0500 Body weight 107.[address] Ryan Ceja Work Phone: [facility] 03-21-2023 08:44-0500 Diastolic blood pressure 60 mm[Hg] Dr. Ryan Ceja Work Phone: [facility] 03-21-2023 08:44-0500 Heart rate 84 /min Dr. Ryan Ceja Work Phone: [facility] 03-21-2023 08:44-0500 Respiratory rate 16 /min Dr. Ryan Ceja Work Phone: [facility] 03-21-2023 08:44-0500 SaO2% (BldA) [Mass fraction] 98 % Dr. Ryan Ceja Work Phone: [facility] 03-21-2023 08:44-0500 Systolic blood pressure 138 mm[Hg] Dr. Ryan Ceja Work Phone: [facility] 03-06-2023 14:40-0500 Diastolic blood pressure 79 mm[Hg] Dr. Ryan Ceja Work Phone: [facility] 03-06-2023 14:40-0500 Systolic blood pressure 128 mm[Hg] Dr. Ryan Ceja Work Phone: [facility] 03-06-2023 14:19-0500 Body temperature 98 [degF] Dr. Ryan Ceja Work Phone: [facility] 03-06-2023 14:19-0500 Body weight 107.[address] Ryan Ceja Work Phone: [facility] 03-06-2023 14:19-0500 Heart rate 94 /min Dr. Ryan Ceja Work Phone: [facility] 03-06-2023 14:19-0500 Respiratory rate 16 /min Dr. Ryan Ceja Work Phone: [facility] 03-06-2023 14:19-0500 SaO2% (BldA) [Mass fraction] 98 % Dr. Ryan Ceja Work Phone: [facility] 02-20-2023 10:31-0500 Body temperature 98.4 [degF] Dr. Ryan Ceja Work Phone: [facility] 02-20-2023 10:31-0500 Body weight 109.[address] Ryan Ceja Work Phone: [facility] 02-20-2023 10:31-0500 Diastolic blood pressure 88 mm[Hg] Dr. Ryan Ceja Work Phone: [facility] 02-20-2023 10:31-0500 Heart rate 83 /min Dr. Ryan Ceja Work Phone: [facility] 02-20-2023 10:31-0500 Respiratory rate 16 /min Dr. Ryan Ceja Work Phone: [facility] 02-20-2023 10:31-0500 SaO2% (BldA) [Mass fraction] 97 % Dr. Ryan Ceja Work Phone: [facility] 02-20-2023 10:31-0500 Systolic blood pressure 144 mm[Hg] Dr. Ryan Ceja Work Phone: [facility] 02-13-2023 16:20-0500 Body temperature 97.8 [degF] Dr. Ryan Ceja Work Phone: [facility] 02-13-2023 16:20-0500 Diastolic blood pressure 68 mm[Hg] Dr. Ryan Ceja Work Phone: [facility] 02-13-2023 16:20-0500 Heart rate 60 /min Dr. Ryan Ceja Work Phone: [facility] 02-13-2023 16:20-0500 Respiratory rate 18 /min Dr. Ryan Ceja Work Phone: [facility] 02-13-2023 16:20-0500 SaO2% (BldA) [Mass fraction] 99 % Dr. Ryan Ceja Work Phone: [facility] 02-13-2023 16:20-0500 Systolic blood pressure 125 mm[Hg] Dr. Ryan Ceja Work Phone: [facility] 02-12-2023 06:38-0500 Body height 187.[address] Ryan Ceja Work Phone: [facility] 02-12-2023 06:38-0500 Body mass index (BMI) [Ratio] 31.1 kg/m2 Dr. Ryan Ceja Work Phone: [facility] 02-12-2023 06:38-0500 Body weight [address] Ryan Ceja Work Phone: [facility] 01-31-2023 14:32-0500 Body height 187.[address] Ryan Ceja Work Phone: [facility] 01-31-2023 14:32-0500 Body mass index (BMI) [Ratio] 30.7 kg/m2 Dr. Ryan Ceja Work Phone: [facility] 01-31-2023 14:32-0500 Body temperature 98.2 [degF] Dr. Ryan Ceja Work Phone: [facility] 01-31-2023 14:32-0500 Body weight 108.[address] Ryan Ceja Work Phone: [facility] 01-31-2023 14:32-0500 Diastolic blood pressure 74 mm[Hg] Dr. Ryan Ceja Work Phone: [facility] 01-31-2023 14:32-0500 Heart rate 73 /min Dr. Ryan Ceja Work Phone: [facility] 01-31-2023 14:32-0500 Respiratory rate 18 /min Dr. Ryan Ceja Work Phone: [facility] 01-31-2023 14:32-0500 SaO2% (BldA) [Mass fraction] 97 % Dr. Ryan Ceja Work Phone: [facility] 01-31-2023 14:32-0500 Systolic blood pressure 123 mm[Hg] Dr. Ryan Ceja Work Phone: [facility] 01-02-2023 10:40-0500 Body height 188 cm Rocio Ruiz MD Work Phone: [facility] 01-02-2023 10:40-0500 Body mass index (BMI) [Ratio] 31.2 kg/m2 Rocio Ruiz MD Work Phone: [facility] 01-02-2023 10:40-0500 Body weight 110.22 kg Rocio Ruiz MD Work Phone: [facility] [employer] 01-02-2023 10:40-0500 Diastolic blood pressure 62 mm[Hg] Rocio Ruiz MD Work Phone: [facility] [employer] 01-02-2023 10:40-0500 Heart rate 80 /min Rocio Ruiz MD Work Phone: [facility] [employer] 01-02-2023 10:40-0500 Systolic blood pressure 122 mm[Hg] Rocio Ruiz MD Work Phone: [facility] [employer] 01-02-2023 08:40-0500 Body height 188 cm Ziggy Arauz MD Work Phone: [facility] [employer] 01-02-2023 08:40-0500 Body mass index (BMI) [Ratio] 30.17 kg/m2 Ziggy Arauz MD Work Phone: [facility] [employer] 01-02-2023 08:40-0500 Body weight 106.59 kg Ziggy Arauz MD Work Phone: [facility] [employer] 12-25-2022 19:57-0400 Diastolic blood pressure 74 mm[Hg] Pacheco Ortiz MD Work Phone: [facility] 12-25-2022 19:57-0400 Heart rate 83 /min Pacheco Otriz MD Work Phone: [facility] 12-25-2022 19:57-0400 Respiratory rate 20 /min Pacheco Ortiz MD Work Phone: [facility] 12-25-2022 19:57-0400 SaO2% (BldA) [Mass fraction] 96 % Pacheco Ortiz MD Work Phone: [facility] 12-25-2022 19:57-0400 Systolic blood pressure 154 mm[Hg] Pacheco Ortiz MD Work Phone: [facility] 12-25-2022 18:53-0400 Body height 188 cm Pacheco Ortiz MD Work Phone: [facility] 12-25-2022 18:53-0400 Body mass index (BMI) [Ratio] 30.94 kg/m2 Pacheco Ortiz MD Work Phone: [facility] 12-25-2022 18:53-0400 Body temperature 98.01 [degF] Pacheco Ortiz MD Work Phone: [facility] 12-25-2022 18:53-0400 Body weight 109.32 kg Pacheco Ortiz MD Work Phone: [facility] 12-25-2022 16:45-0400 Diastolic blood pressure 80 mm[Hg] Ziggy Arauz MD Work Phone: [facility] 12-25-2022 16:45-0400 Heart rate 66 /min Ziggy Arauz MD Work Phone: [facility] 12-25-2022 16:45-0400 Respiratory rate 16 /min Ziggy Arauz MD Work Phone: [facility] [employer] 12-25-2022 16:45-0400 SaO2% (BldA) [Mass fraction] 96 % Ziggy Arauz MD Work Phone: [employer] 12-25-2022 16:45-0400 Systolic blood pressure 132 mm[Hg] Ziggy Arauz MD Work Phone: [facility] [employer] 12-25-2022 08:28-0400 Body height 188 cm Ziggy Arauz MD Work Phone: [employer] 12-25-2022 08:28-0400 Body mass index (BMI) [Ratio] 30.94 kg/m2 Ziggy Arauz MD Work Phone: [employer] 12-25-2022 08:28-0400 Body temperature 97 [degF] Ziggy Aaruz MD Work Phone: [facility] [employer] 12-25-2022 08:28-0400 Body weight 109.32 kg Ziggy Arauz MD Work Phone: [facility] [employer] 12-22-2022 10:17-0400 Diastolic blood pressure 85 mm[Hg] Pacheco Negron MD Work Phone: [facility] [employer] 12-22-2022 10:17-0400 Heart rate 50 /min Pacheco Negron MD Work Phone: [employer] 12-22-2022 10:17-0400 Respiratory rate 16 /min Pacheco Negron MD Work Phone: [employer] 12-22-2022 10:17-0400 SaO2% (BldA) [Mass fraction] 98 % Pacheco Negron MD Work Phone: [facility] [employer] 12-22-2022 10:17-0400 Systolic blood pressure 148 mm[Hg] Pacheco Negron MD Work Phone: [employer] 12-22-2022 08:04-0400 Body mass index (BMI) [Ratio] 30.94 kg/m2 Pacheco Negron MD Work Phone: [facility] [employer] 12-22-2022 08:04-0400 Body temperature 97.2 [degF] Pacheco Negron MD Work Phone: [facility] [employer] 12-22-2022 08:04-0400 Body weight 109.32 kg Pacheco Negron MD Work Phone: [employer] 12-07-2022 15:23-0400 Body temperature 97.59 [degF] Yolanda Voll DO Work Phone: [employer] 12-07-2022 15:23-0400 Diastolic blood pressure 64 mm[Hg] Yolanda Voll DO Work Phone: [employer] 12-07-2022 15:23-0400 Heart rate 62 /min Yolanda Voll DO Work Phone: [employer] 12-07-2022 15:23-0400 Respiratory rate 16 /min Yolanda Voll DO Work Phone: [employer] 12-07-2022 15:23-0400 SaO2% (BldA) [Mass fraction] 95 % Yolanda Voll DO Work Phone: [facility] [employer] 12-07-2022 15:23-0400 Systolic blood pressure 110 mm[Hg] Yolanda Voll DO Work Phone: [employer] 12-07-2022 09:19-0400 Body height 188 cm Yolanda Voll DO Work Phone: [employer] 12-07-2022 09:19-0400 Body mass index (BMI) [Ratio] 30.81 kg/m2 Yolanda Voll DO Work Phone: [employer] 12-07-2022 09:19-0400 Body weight 108.86 kg Yolanda Voll DO Work Phone: [employer] 11-14-2022 10:54-0400 Body mass index (BMI) [Ratio] 31.3 kg/m2 Cheryl Basilio MD Work Phone: [employer] 11-14-2022 10:54-0400 Body weight 110.59 kg Cheryl Basilio MD Work Phone: [employer] 11-14-2022 10:54-0400 Diastolic blood pressure 84 mm[Hg] Cheryl Basilio MD Work Phone: [employer] 11-14-2022 10:54-0400 Heart rate 91 /min Cheryl Basilio MD Work Phone: [employer] 11-14-2022 10:54-0400 SaO2% (BldA) [Mass fraction] 94 % Cheryl Basilio MD Work Phone: [employer] 11-14-2022 10:54-0400 Systolic blood pressure 137 mm[Hg] Cheryl Basilio MD Work Phone: [employer] 10-16-2022 07:25-0400 Body temperature 98.2 [degF] Natacha Skiffey DO Work Phone: [employer] 10-16-2022 07:25-0400 Diastolic blood pressure 92 mm[Hg] Natacha Skiffey DO Work Phone: [employer] 10-16-2022 07:25-0400 Heart rate 68 /min Natacha Skiffey DO Work Phone: [employer] 10-16-2022 07:25-0400 Respiratory rate 17 /min Natacha Skiffey DO Work Phone: [employer] 10-16-2022 07:25-0400 SaO2% (BldA) [Mass fraction] 97 % Natacha Skiffey DO Work Phone: [employer] 10-16-2022 07:25-0400 Systolic blood pressure 148 mm[Hg] Natacha Skiffey DO Work Phone: [employer] 10-12-2022 16:15-0400 Diastolic blood pressure 72 mm[Hg] Pacheco Negron MD Work Phone: [employer] 10-12-2022 16:15-0400 Respiratory rate 16 /min Pacheco Negron MD Work Phone: [employer] 10-12-2022 16:15-0400 SaO2% (BldA) [Mass fraction] 98 % Pacheco Negron MD Work Phone: [employer] 10-12-2022 16:15-0400 Systolic blood pressure 138 mm[Hg] Pacheco Negron MD Work Phone: [employer] 10-12-2022 13:36-0400 Body mass index (BMI) [Ratio] 30.17 kg/m2 Pacheco Negron MD Work Phone: [employer] 10-12-2022 13:36-0400 Body temperature 97.81 [degF] Pacheco Negron MD Work Phone: [facility] [employer] 10-12-2022 13:36-0400 Body weight 106.59 kg Pacheco Negron MD Work Phone: [employer] 10-12-2022 13:36-0400 Heart rate 91 /min Pacheco Negron MD Work Phone: [employer] 10-11-2022 08:27-0400 Body height 188 cm Cheryl Basilio MD Work Phone: [employer] 10-11-2022 08:27-0400 Body mass index (BMI) [Ratio] 29.89 kg/m2 Cheryl Basilio MD Work Phone: [employer] 10-11-2022 08:27-0400 Body weight 105.6 kg Cheryl Basilio MD Work Phone: [employer] 10-11-2022 08:27-0400 Diastolic blood pressure 68 mm[Hg] Cheryl Basilio MD Work Phone: [employer] 10-11-2022 08:27-0400 Heart rate 76 /min Cheryl Basilio MD Work Phone: [employer] 10-11-2022 08:27-0400 SaO2% (BldA) [Mass fraction] 93 % Cheryl Basilio MD Work Phone: [employer] 10-11-2022 08:27-0400 Systolic blood pressure 122 mm[Hg] Cheryl Basilio MD Work Phone: [employer] 10-10-2022 12:42-0400 Body height 188 cm Donna Roberts DO Work Phone: [employer] 10-10-2022 12:42-0400 Body mass index (BMI) [Ratio] 30.15 kg/m2 Donna Roberts DO Work Phone: [email or web address] 10-10-2022 12:42-0400 Body weight 106.5 kg Donna Roberts DO Work Phone: [email or web address] 10-10-2022 12:42-0400 Diastolic blood pressure 74 mm[Hg] Donna Roberts DO Work Phone: [employer] 10-10-2022 12:42-0400 Heart rate 78 /min Donna Roberts DO Work Phone: [employer] 10-10-2022 12:42-0400 Respiratory rate 18 /min Donna Roberts DO Work Phone: [email or web address] 10-10-2022 12:42-0400 SaO2% (BldA) [Mass fraction] 93 % Donna Roberts DO Work Phone: [employer] Comment on above: Room air at rest 10-10-2022 12:42-0400 Systolic blood pressure 108 mm[Hg] Donna Roberts DO Work Phone: [email or web address] 09-13-2022 11:46-0400 Body mass index (BMI) [Ratio] 30.53 kg/m2 Chana Iqraenthal DIGITAL FORENSICS INVESTIGATOR - BUFF WHEEL FABRICATOR Work Phone: [email or web address] 09-13-2022 11:46-0400 Body temperature 98.2 [degF] Chana Bridenthal DIGITAL FORENSICS INVESTIGATOR - [employer]FF WHEEL FABRICATOR Work Phone: [email or web address] 09-13-2022 11:46-0400 Body weight 107.86 kg Chana Iqraenthal DIGITAL FORENSICS INVESTIGATOR - [employer]FF WHEEL FABRICATOR Work Phone: [email or web address] 09-13-2022 11:46-0400 Diastolic blood pressure 80 mm[Hg] Chana Iqraenthal DIGITAL FORENSICS INVESTIGATOR - BUFF WHEEL FABRICATOR Work Phone: [email or web address] 09-13-2022 11:46-0400 Heart rate 68 /min Chanaaura Escalonaenthal DIGITAL FORENSICS INVESTIGATOR - BUFF WHEEL FABRICATOR Work Phone: [facility] [employer] 09-13-2022 11:46-0400 Respiratory rate 20 /min Chanaauar Escalonaenthal DIGITAL FORENSICS INVESTIGATOR - BUFF WHEEL FABRICATOR Work Phone: [facility] [employer] 09-13-2022 11:46-0400 Systolic blood pressure 138 mm[Hg] Chana Bridenthal DIGITAL FORENSICS INVESTIGATOR - [employer]FF WHEEL FABRICATOR Work Phone: [facility] [employer] 08-17-2022 08:17-0400 Body height 188 cm Tayler Rivas DIGITAL FORENSICS INVESTIGATOR - BUFF WHEEL FABRICATOR Work Phone: [facility] [employer] 08-17-2022 08:17-0400 Body mass index (BMI) [Ratio] 30.3 kg/m2 Tayler Rivas DIGITAL FORENSICS INVESTIGATOR - [employer]FF WHEEL FABRICATOR Work Phone: [facility] [employer] 08-17-2022 08:17-0400 Body weight 107.05 kg Tayler Rivas DIGITAL FORENSICS INVESTIGATOR - [employer] WHE[employer] FABRICATOR Work Phone: [facility] [employer] 08-17-2022 08:17-0400 Diastolic blood pressure 76 mm[Hg] Tayler Rob DIGITAL FORENSICS INVESTIGATOR - BUFF WHEEL FABRICATOR Work Phone: [facility] [employer] 08-17-2022 08:17-0400 Heart rate 59 /min Tayler Rob DIGITAL FORENSICS INVESTIGATOR - [employer]FF WHEEL FABRICATOR Work Phone: [facility] [employer] 08-17-2022 08:17-0400 SaO2% (BldA) [Mass fraction] 98 % Tayler Rivas DIGITAL FORENSICS INVESTIGATOR - [employer] WHEEL FABRICATOR Work Phone: [facility] [employer] 08-17-2022 08:17-0400 Systolic blood pressure 122 mm[Hg] Tayler Rivas DIGITAL FORENSICS INVESTIGATOR - [employer]FF WHEEL FABRICATOR Work Phone: [facility] [employer] 06-19-2022 13:48-0400 Body height 188 cm Leanne Perales MD Work Phone: [facility] [employer] 06-19-2022 13:48-0400 Body mass index (BMI) [Ratio] 30.66 kg/m2 Leanne Perales MD Work Phone: [facility] [employer] 06-19-2022 13:48-0400 Body weight 108.32 kg Leanne Perales MD Work Phone: [employer] 06-19-2022 13:48-0400 Diastolic blood pressure 82 mm[Hg] Leanne Perales MD Work Phone: [employer] 06-19-2022 13:48-0400 Heart rate 75 /min Leanne Perales MD Work Phone: [employer] 06-19-2022 13:48-0400 Systolic blood pressure 139 mm[Hg] Leanne Perales MD Work Phone: [employer] 05-17-2022 11:46-0400 Diastolic blood pressure 67 mm[Hg] Leanne Perales MD Work Phone: [employer] 05-17-2022 11:46-0400 Heart rate 67 /min Leanne Perales MD Work Phone: [employer] 05-17-2022 11:46-0400 Respiratory rate 20 /min Leanne Perales MD Work Phone: [employer] 05-17-2022 11:46-0400 Systolic blood pressure 122 mm[Hg] Leanne Perales MD Work Phone: [employer] 03-06-2022 14:46-0500 Body height 188 cm Leanne Perales MD Work Phone: [employer] 03-06-2022 14:46-0500 Body mass index (BMI) [Ratio] 30.4 kg/m2 Leanne Perales MD Work Phone: [employer] 03-06-2022 14:46-0500 Body weight 107.41 kg Leanne Perales MD Work Phone: [employer] 03-06-2022 14:46-0500 Diastolic blood pressure 72 mm[Hg] Leanne Perales MD Work Phone: [employer] 03-06-2022 14:46-0500 Heart rate 74 /min Leanne Perales MD Work Phone: [facility] [employer] 03-06-2022 14:46-0500 Systolic blood pressure 120 mm[Hg] Leanne Perales MD Work Phone: [facility] [employer] 02-27-2022 14:16-0500 Body temperature 97.7 [degF] Chana Bridenthal DIGITAL FORENSICS INVESTIGATOR - [employer]FF WHEEL FABRICATOR Work Phone: [facility] [employer] 02-27-2022 14:16-0500 Diastolic blood pressure 80 mm[Hg] Chana Bridenthal DIGITAL FORENSICS INVESTIGATOR - [employer] WHE[employer] FABRICATOR Work Phone: [facility] [employer] 02-27-2022 14:16-0500 Systolic blood pressure 138 mm[Hg] Chana Bridenthal DIGITAL FORENSICS INVESTIGATOR - [employer]FF WHEEL FABRICATOR Work Phone: [facility] [employer] 02-27-2022 13:35-0500 Body mass index (BMI) [Ratio] 30.17 kg/m2 Chana Bridenthal DIGITAL FORENSICS INVESTIGATOR - [employer]FF WHE[employer] FABRICATOR Work Phone: [facility] [employer] 02-27-2022 13:35-0500 Body weight 106.59 kg Chana Bridenthal DIGITAL FORENSICS INVESTIGATOR - [employer]FF WHEEL FABRICATOR Work Phone: [facility] [employer] 02-27-2022 13:35-0500 Heart rate 69 /min Chana Bridenthal DIGITAL FORENSICS INVESTIGATOR - [employer]FF WHEEL FABRICATOR Work Phone: [facility] [employer] 12-05-2021 20:43-0400 Body temperature 98.1 [degF] Barry Leon MD Work Phone: [facility] 12-05-2021 20:43-0400 Diastolic blood pressure 85 mm[Hg] Barry Leon MD Work Phone: [facility] 12-05-2021 20:43-0400 Heart rate 68 /min Barry Leon MD Work Phone: [facility] 12-05-2021 20:43-0400 Respiratory rate 18 /min Barry Leon MD Work Phone: [facility] 12-05-2021 20:43-0400 SaO2% (BldA) [Mass fraction] 94 % Barry Leon MD Work Phone: [facility] 12-05-2021 20:43-0400 Systolic blood pressure 145 mm[Hg] Barry Leon MD Work Phone: [facility] 12-01-2021 10:17-0400 Body height 188 cm Barry Leon MD Work Phone: [facility] 12-01-2021 10:17-0400 Body mass index (BMI) [Ratio] 30.3 kg/m2 Barry Leon MD Work Phone: [facility] 12-01-2021 10:17-0400 Body weight 107.05 kg Barry Leon MD Work Phone: [facility] 11-27-2021 23:28-0400 Diastolic blood pressure 78 mm[Hg] Tc Spence MD Work Phone: [facility] 11-27-2021 23:28-0400 Heart rate 83 /min Tc Spence MD Work Phone: [facility] 11-27-2021 23:28-0400 Respiratory rate 16 /min Tc Spence MD Work Phone: [facility] 11-27-2021 23:28-0400 SaO2% (BldA) [Mass fraction] 97 % Tc Spence MD Work Phone: [facility] 11-27-2021 23:28-0400 Systolic blood pressure 127 mm[Hg] Tc Spence MD Work Phone: [facility] 11-27-2021 20:34-0400 Body height 188 cm Tc Spence MD Work Phone: [facility] 11-27-2021 20:34-0400 Body mass index (BMI) [Ratio] 29.53 kg/m2 Tc Spence MD Work Phone: [facility] 11-27-2021 20:34-0400 Body temperature 98.2 [degF] Tc Spence MD Work Phone: [facility] 11-27-2021 20:34-0400 Body weight 104.33 kg Tc Spence MD Work Phone: [facility] Encounters Encounter Date Encounter Type Care Provider Facility Start: 12-02-2024 End: 12-02-2024 Patient encounter procedure Sherry SHAFFER -[facility] Work Phone: Start: 12-02-2024 End: 12-02-[address] Justice Bailey DO Work Phone: -[facility] Start: 11-23-2024 Patient encounter procedure Sherry SHAFFER [facility] Work Phone: Start: 11-23-2024 End: 11-23-2024 ambulatory Sherry Venegas Facility:[facility] Start: 11-09-2024 End: 11-09-[address] Carl Mccullough MD -[facility] Start: 11-09-2024 End: 11-09-[address] Justice Bailey DO Work Phone: -[facility] Start: 10-09-2024 End: 10-09-[address] Justice Bailey DO Work Phone: -[facility] [place] Start: 10-09-2024 End: 10-09-2024 Patient encounter procedure Xiomara Johnston SUPERVISOR [employer]-C -[facility] [place] Work Phone: Start: 10-08-2024 End: 10-08-2024 Patient encounter procedure Xiomara Johnston SUPERVISOR [employer]-C -[facility] Work Phone: Start: 10-08-2024 End: 10-09-[address] Justice Bailey DO Work Phone: -[facility] Start: 10-03-2024 End: 10-03-2024 Emergency department patient visit Dr. Justice Bailey DO Work Phone: -Emergency Department Work Phone: Start: 08-11-2024 End: 08-11-[address] Justice Issa DO -[facility] Work Phone: Start: 08-11-2024 End: 08-11-2024 ambulatory Dolly SHAFFER Work Phone: [facility] Work Phone: Start: 08-02-2024 End: 08-02-2024 Emergency department patient visit Dolly SHAFFER Work Phone: -Emergency Department Work Phone: Start: 07-17-2024 End: 07-17-[address] Franky Brewer MD -[facility] Work Phone: Start: 07-17-2024 End: 07-17-2024 ambulatory Justice Bailey Facility:[facility] Start: 07-01-2024 Non-patient / Non-visit Estefany Gonzalez MA -[facility] Work Phone: Start: 07-01-2024 ambulatory Justice Bailey Facilit y:[facility] Start: 05-28-2024 End: 05-28-2024 Patient encounter procedure Stanislaw SHAFFER [facility] Work Phone: Start: 05-28-2024 End: 05-28-2024 ambulatory Sanjana Hale [employer] Work Phone: [facility] Work Phone: Start: 05-28-2024 End: 05-28-2024 ambulatory Stanislaw SHAFFER Facility:[facility] Start: 05-14-2024 Non-patient / Non-visit Yolanda SHAFFER [facility] Start: 05-14-2024 ambulatory Justice Bailey Facilit y:[facility] Start: 04-20-2024 End: 04-20-2024 ambulatory SANJANA HALE DIGITAL FORENSICS INVESTIGATOR-BUFF WHEEL FABRICATOR Facility:[facility] Start: 04-20-2024 End: 04-20-2024 Patient encounter procedure BASIM RAMSEY MD [facility] Start: 04-13-2024 ambulatory Ryan Ceja Facility:[facility] Start: 04-13-2024 Non-patient / Non-visit Dr. Ryan adams MD -[facility] Start: 04-13-2024 End: 04-13-2024 Patient encounter procedure Dolly SHAFFER -[facility] Work Phone: Start: 04-13-2024 End: 04-13-2024 ambulatory Justice Bailey Facility:[facility] Start: 03-31-2024 End: 03-31-[address] Justice Issa DO -[facility] Work Phone: Start: 03-31-2024 End: 03-31-2024 ambulatory Justice Bailey Facility:[facility] Start: 03-18-2024 End: 03-18-2024 Patient encounter procedure Dolly SHAFFER -[facility] Work Phone: Start: 03-18-2024 End: 03-18-2024 ambulatory Sanjanajazzy Gillvaibhav Facility:[facility] Start: 02-25-2024 End: 02-25-2024 Patient encounter procedure David SHAFFER [facility] Work Phone: Start: 02-25-2024 End: 02-25-2024 ambulatory Sanjana Jairovaibhav Facility:[facility] Start: 01-03-2024 End: 01-03-2024 ambulatory BASIM RAMSEY MD Facility:[facility] Start: 01-03-2024 End: 01-03-2024 Patient encounter procedure BASIM RAMSEY MD [facility] Start: 12-23-2023 End: 12-23-2023 ambulatory Sanjana Jairovaibhav Facility:[facility] Start: 09-16-2023 End: 09-16-2023 Subsequent hospital visit by physician Rocio Ruiz MD Work Phone: [facility] Comment on above: Pituitary adenoma (H CC) Start: 09-16-2023 End: 09-16-2023 ambulatory ROCIO RUIZ [facility] Start: 08-01-2023 Telephone encounter Rocio Ruiz MD Work Phone: [employer] [facility] Comment on above: Results Start: 07-31-2023 End: 07-31-2023 Office outpatient visit 25 minutes Rocio Ruiz MD Work Phone: [employer] [facility] Comment on above: Pituitary adenoma (H CC) (Primary Dx); Hypercalcemia; 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; Hypogonadotropic hypogonadism (HCC) Start: 07-31-2023 End: 07-31-2023 ambulatory SILVESTRE SEXTON [facility] Start: 06-21-2023 End: 06-21-2023 ambulatory [employer] Sanjanajazzy Garciao Work Phone: [facility] Work Phone: Start: 06-21-2023 End: 06-21-2023 Patient encounter procedure [employer] Sanjanajazzy Gillullo Work Phone: [facility]-Cat Scan, [facility] Work Phone: Start: 06-19-2023 Telephone encounter Adrienelier Alejandra LOAIZA Work Phone: [employer] [facility] Start: 06-18-2023 End: 06-18-2023 ambulatory [employer] Sanjana Jairoullo Work Phone: [facility] Work Phone: Start: 06-18-2023 End: 06-18-2023 Patient encounter procedure [employer] Sanjana Ferullo Work Phone: [facility]-Ultrasound, [facility] Work Phone: Start: 06-10-2023 End: 06-10-2023 ambulatory [employer] Sanjana Ferullo Work Phone: [facility] Work Phone: Start: 06-10-2023 End: 06-10-[address] Ryan Ceja Work Phone: [facility]-Laboratory Work Phone: Start: 06-06-2023 End: 06-06-[address] Ryan Ceja Work Phone: [facility] Work Phone: Start: 06-06-2023 End: 06-06-[address] Ryan Ceja Work Phone: [facility] Internal Medicine Work Phone: Start: 05-28-2023 End: 05-28-[address] Ryan Ceja Work Phone: [facility] Work Phone: Start: 05-28-2023 End: 05-28-[address] Ryan Ceja Work Phone: [facility] Internal Medicine Work Phone: Start: 05-09-2023 End: 05-09-[address] Ryan Ceja Work Phone: [facility] Work Phone: Start: 05-09-2023 End: 05-09-[address] Ryan Ceja Work Phone: [facility]-Laboratory, Specimen Work Phone: Start: 05-09-2023 End: 05-09-[address] Ryan Ceja Work Phone: [facility] Internal Medicine Work Phone: Start: 04-21-2023 Refill Ias Dubois er [employer] Work Phone: [facility] Start: 04-01-2023 Refill Isa Dubois er [employer] Work Phone: [facility] Start: 03-21-2023 End: 03-21-[address] Ryan Ceja Work Phone: [facility] Work Phone: Start: 03-21-2023 End: 03-21-[address] Ryan Ceja Work Phone: [facility]-Laboratory, [facility] Start: 03-21-2023 End: 03-21-[address] Ryan Ceja Work Phone: [facility] Internal Medicine Work Phone: Start: 03-06-2023 End: 03-06-[address] Ryan Ceja Work Phone: [facility] Vascular Surgery Work Phone: Start: 02-20-2023 End: 02-20-[address] Ryan Ceja Work Phone: [facility] Vascular Surgery Work Phone: Start: 02-13-2023 Non-patient / Non-visit Dr. Kelivn Ceja Work Phone: [facility] Start: 02-12-2023 Non-patient / Non-visit Dr. Kelvin Ceja Work Phone: [facility] Start: 02-12-2023 End: 02-13-2023 Evaluation and management of inpatient Dr. Ryan Ceja Work Phone: [facility]-Progressive Care Unit Work Phone: Start: 02-12-2023 End: 02-13-[address] Ryan Ceja Work Phone: [facility] Work Phone: Start: 02-07-2023 End: 02-07-2023 Non-patient / Non-visit Dr. Ryan Ceja Work Phone: [facility] Work Phone: Start: 02-07-2023 End: 02-07-[address] Ryan Ceja Work Phone: [facility] Work Phone: Start: 02-07-2023 End: 02-07-[address] Ryan Ceja Work Phone: [facility] Work Phone: Start: 02-05-2023 Non-patient / Non-visit Dr. Kelvin Ceja Work Phone: [facility] Start: 02-05-2023 End: 02-05-[address] Ryan Ceja Work Phone: [facility] Work Phone: Start: 02-05-2023 End: 02-05-[address] Ryan Ceja Work Phone: [facility]-Cardi[facility]asc[facility] Services Work Phone: Start: 01-31-2023 End: 01-31-[address] Ryan Ceja Work Phone: [facility] Vascular Surgery Work Phone: Start: 01-30-2023 Refill Cheryl centeno MD Work Phone: [facility] Start: 01-25-2023 Telephone encounter Rocio Ruiz MD Work Phone: [facility] Comment on above: To Dr Ruiz Start: 01-04-2023 Telephone encounter Rocio Ruiz MD Work Phone: [facility] Comment on above: Medication Problem Start: 01-03-2023 End: 01-03-2023 ambulatory ROCIO RUIZ [facility] Start: 01-02-2023 Telephone encounter Daphne Frausto [facility] Comment on above: Jayson Lowry refuses to fill script Start: 01-02-2023 End: 01-02-2023 Office outpatient visit 25 minutes Rocio Ruiz MD Work Phone: [employer] [facility] Comment on above: Macroprolactinoma (H CC) (Primary Dx); Pituitary adenoma (HCC); 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; Hypercalcemia Start: 01-02-2023 End: 01-02-2023 ambulatory ROCIO BARAHONANCARCELIA [facility] Start: 01-02-2023 End: 01-02-2023 Office outpatient visit 15 minutes Ziggy Arauz MD Work Phone: [employer] [facility] Comment on above: Chronic deep vein th rombosis (DVT) of iliofemoral vein (HCC) (Primary Dx) Start: 01-02-2023 End: 01-02-2023 [facility] Start: 12-25-2022 End: 12-25-2022 Emergency department patient visit Pacheco Ortiz MD Work Phone: [facility] Comment on above: Bleeding (Primary Dx ) Start: 12-25-2022 End: 12-25-2022 ambulatory [facility] Start: 12-25-2022 End: 12-25-2022 Subsequent hospital visit by physician Ziggy Arauz MD Work Phone: [facility] Comment on above: Sebaceous cyst of le ft eyelid (Primary Dx) Start: 12-22-2022 ambulatory [facility] Start: 12-22-2022 Patient encounter procedure [facility] Clinical Communication Start: 12-22-2022 End: 12-22-2022 Emergency department patient visit Pacheco Negron MD Work Phone: [facility] Comment on above: Acute right flank pa in (Primary Dx) Start: 12-21-2022 End: 12-21-2022 ambulatory [facility] Start: 12-21-2022 End: 12-21-2022 Subsequent hospital visit by physician Cheryl Basilio MD Work Phone: [facility] X-ray Imaging Comment on above: Right flank pain Start: 12-21-2022 End: 12-21-2022 ambulatory [facility] Start: 12-17-2022 Telephone encounter Dat Talbot RN [facility] Clinical Communication Comment on above: Advice Only Start: 12-17-2022 End: 12-17-2022 ambulatory [facility] Start: 12-13-2022 End: 12-13-2022 ambulatory [facility] Start: 12-13-2022 End: 12-13-2022 Encounter for other preprocedural examination [facility] Start: 12-12-2022 ambulatory Aure Delgado DIGITAL FORENSICS INVESTIGATOR - BUFF WHEEL FABRICATOR Work Phone: [facility] Start: 12-11-2022 End: 12-11-2022 Subsequent hospital visit by physician Ziggy Arauz MD Work Phone: [facility] Vascular Lab Comment on above: Arrived Start: 12-11-2022 End: 12-11-2022 ambulatory [facility] Start: 12-10-2022 End: 12-10-2022 ambulatory [facility] Start: 12-07-2022 End: 12-07-2022 Emergency department patient visit Yolanda Patel Work Phone: [facility] EMERGENCY DEPT Comment on above: Deep vein thrombosis (DVT) of proximal vein of left lower extremity, unspecified chronicity (HCC) (Primary Dx) Start: 12-03-2022 Orders Only Cheryl centeno MD Work Phone: [facility] Internal Medicine Comment on above: Acute deep vein thro mbosis (DVT) of left lower extremity, unspecified vein (HCC) (Primary Dx) Start: 11-15-2022 ambulatory Dat Talbot RN [facility] Clinical Communication Start: 11-15-2022 [facility] Start: 11-15-2022 Telephone encounter Farzana Samaniego RN [facility] Clinical Communication Comment on above: Results (/) Start: 11-14-2022 End: 11-14-2022 Subsequent hospital visit by physician Cheryl Basilio MD Work Phone: [facility] Vascular Lab Comment on above: Acute deep vein thro mbosis (DVT) of left lower extremity, unspecified vein (HCC) Start: 11-14-2022 ambulatory Natacha Barry RN [facility] Clinical Communication Start: 11-14-2022 Patient encounter procedure Dasia F ericanicole RN [facility] Clinical Communication Start: 11-14-2022 End: 11-14-2022 Office outpatient visit 15 minutes Cheryl Basilio MD Work Phone: [facility] Internal Medicine Comment on above: Acute deep vein thro mbosis (DVT) of left lower extremity, unspecified vein (HCC) (Primary Dx) Start: 11-13-2022 ambulatory Khalida Currie RN [facility] [employer] Communication Start: 11-13-2022 Patient encounter procedure Khalida herring RN [facility] Clinical Communication Start: 10-31-2022 Telephone encounter Cheryl Basilio MD Work Phone: [facility] Internal Medicine Comment on above: Med Refill Start: 10-15-2022 Orders Only Cheryl centeno MD Work Phone: [facility] Internal Medicine Comment on above: ER Follow-up Start: 10-12-2022 End: 10-16-2022 Emergency department patient visit Natacha Frankel Work Phone: [facility] 4S TELEMETRY Comment on above: Acute deep vein thro mbosis (DVT) of left lower extremity, unspecified vein (HCC) (Primary Dx); Ambulatory dysfunction Start: 10-12-2022 End: 10-12-2022 Subsequent hospital visit by physician [facility] Us Exam Room 2 [facility] US Comment on above: Arrived Start: 10-12-2022 End: 10-12-2022 Emergency department patient visit Pacheco Negron MD Work Phone: [facility] Comment on above: Leg swelling (Primar y Dx); Acute deep vein thrombosis (DVT) of left lower extremity, unspecified vein (HCC) Start: 10-11-2022 End: 10-11-2022 Office outpatient new 30 minutes Cheryl Basilio MD Work Phone: [facility] Medicine Comment on above: Recurrent UTI (Prima ry Dx); Benign prostatic hyperplasia without lower urinary tract symptoms Start: 10-10-2022 End: 10-10-2022 Office outpatient new 45 minutes Donna Roberts DO Work Phone: [facility] Comment on above: Pleural effusion (Pr imary Dx); History of tobacco abuse; Centrilobular emphysema (HCC) Start: 10-10-2022 End: 10-10-2022 Subsequent hospital visit by physician Won Smith DIGITAL FORENSICS INVESTIGATOR - BUFF WHEEL FABRICATOR Work Phone: [facility] Comment on above: Complex renal cyst Start: 09-27-2022 ambulatory NONE PHYSICIAN Facility :[facility] Start: 09-18-2022 End: 09-18-2022 Subsequent hospital visit by physician Leanne Perales MD Work Phone: [facility] Comment on above: No Show Start: 09-16-2022 Telephone encounter Chana kunz DIGITAL FORENSICS INVESTIGATOR - [employer] FABRICATOR Work Phone: [facility] Comment on above: Results Start: 09-13-2022 End: 09-13-2022 Office outpatient visit 15 minutes Chana Brown DIGITAL FORENSICS INVESTIGATOR - BUFF WHEEL FABRICATOR Work Phone: [facility] Comment on above: Urinary tract infect ion symptoms (Primary Dx) Start: 08-22-2022 Refill Leanne Perales MD Work Phone: [facility] Start: 08-20-2022 Orders Only Tayler Rivas DIGITAL FORENSICS INVESTIGATOR - BUFF WHEEL FABRICATOR Work Phone: [facility] Start: 08-17-2022 End: 08-17-2022 Office outpatient visit 15 minutes Tayler Rivas DIGITAL FORENSICS INVESTIGATOR - BUFF WHEEL FABRICATOR Work Phone: [facility] Comment on above: Recurrent UTI (Prima ry Dx); Dysuria; Urinary frequency; Urinary urgency; Chronic right-sided low back pain without sciatica; Leukocytes in urine; Hematuria, unspecified type Start: 07-04-2022 Refill Leanne Perales MD Work Phone: [facility] Start: 06-19-2022 End: 06-19-2022 Office outpatient visit 10 minutes Leanne Perales MD Work Phone: [facility] Comment on above: 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) Start: 06-19-2022 End: 06-19-2022 Office outpatient visit 15 minutes Leanne Perales MD Work Phone: [facility] Comment on above: 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) Start: 05-17-2022 End: 05-17-2022 Office outpatient visit 15 minutes Leanne Perales MD Work Phone: [facility] Comment on above: Right flank pain (Pr imary Dx) Start: 03-22-2022 Telephone encounter Leanne Chu MD Work Phone: [facility] Comment on above: Auth for CT Start: 03-13-2022 Refill Leanne Perales MD Work Phone: [facility] Start: 03-06-2022 End: 03-06-2022 Office outpatient visit 25 minutes Leanne Perales MD Work Phone: [facility] Comment on above: Acute right-sided lo w back pain without sciatica (Primary Dx); Right flank pain Start: 02-27-2022 End: 02-27-2022 Office outpatient visit 15 minutes Chana Bridenthal DIGITAL FORENSICS INVESTIGATOR - BUFF WHEEL FABRICATOR Work Phone: [facility] Comment on above: Acute cystitis witho ut hematuria (Primary Dx); Flank pain; Essential hypertension, benign Start: 02-27-2022 End: 02-27-2022 Office outpatient visit 25 minutes Chana Bridenthal DIGITAL FORENSICS INVESTIGATOR - BUFF WHEEL FABRICATOR Work Phone: [facility] Comment on above: Acute cystitis witho ut hematuria (Primary Dx); Flank pain; Essential hypertension, benign Start: 12-15-2021 Transcribe Orders Won kramer DIGITAL FORENSICS INVESTIGATOR - BUFF WHEEL FABRICATOR Work Phone: [facility] Clinical Communication Comment on above: Complex renal cyst ( Primary Dx) Start: 12-07-2021 [facility] Start: 12-01-2021 End: 12-06-2021 Evaluation and management of inpatient [facility]KNOWN PROVID[facility] Start: 12-01-2021 End: 12-06-2021 Evaluation and management of inpatient Barry Leon MD Work Phone: [facility] Comment on above: Flank pain (Primary Dx); Acute right flank pain; Chills Start: 11-27-2021 End: 11-28-2021 Emergency department patient visit UNKNOWN PROVIDER [facility] Start: 11-27-2021 End: 11-28-2021 Emergency department patient visit Tc Spence MD Work Phone: [facility] Comment on above: Flank pain (Primary Dx) Start: 10-18-2021 [facility] Start: 10-18-2021 End: 10-18-2021 Subsequent hospital visit by physician Rocio Ruiz MD Work Phone: [facility] MRI Comment on above: Macroprolactinoma (H CC) Start: 04-12-2021 [facility] Start: 12-26-2018 End: 12-26-2018 Subsequent hospital visit by physician Hema Gomez Work Phone: [facility] Laboratory Comment on above: Primary hyperparathy roidism [...] Work Phone: Start: 08-02-2024 Estimated creatinine clearance Dolly SHAFFER [...] tomography of abdomen and pelvis with contrast SUPERVISOR ACCOUNTING CLERKS-C Sanjana Hale Work Phone: Start: 06-18-2023 US urinary tract SUPERVISOR ACCOUNTING CLERKS-C Dusty Hale Work Phone: Start: 06-06-[address] Ryan Ceja Work Phone: Start: 05-28-[address] Ryan Ceja Work Phone: Start: 05-09-[address] Ryna Ceja Work Phone: Start: 02-07-2023 Computed tomography [...] above: Performed By: #### L [id number] #### Fruit Peeler: LENORE ESCOBAR ([id number]) [facility] ([facility]) [address] [place] [address] Start: 12-11-2022 Dup-scan aorta ivc i liac [...] et rgnt non-auto w/o micrscp Chana Bridenthal DIGITAL FORENSICS INVESTIGATOR - BUFF WHEEL FABRICATOR Work Phone: Start: 08-17-2022 Urnls dip stick/tabl et rgnt non-auto w/o micrscp Tayler Rivas DIGITAL FORENSICS INVESTIGATOR - BUFF WHEEL FABRICATOR Work Phone: Start: 08-17-2022 Culture bacterial quanttative colony count urine Tayler Rivas DIGITAL FORENSICS INVESTIGATOR - BUFF WHEEL FABRICATOR Work Phone: Start: 05-17-2022 Urnls dip stick/tabl [...] TO MG FOR LOW K Kiara Antwon [facility] Work Phone: Start: 12-06-2021 Blood count complete auto&auto difrntl wbc Kiara Kapoor [facility] Work Phone: Start: 12-05-2021 BASIC METABOLIC PANE L W/ REFLEX TO MG FOR LOW K Kiara Antwon [facility] Work Phone: Start: 12-05-2021 Blood count complete auto&auto difrntl wbc Kiara Kapoor [facility] Work Phone: Start: 12-05-2021 Manual Differential panel - Blood Kiara Kapoor [facility] Work Phone: Start: 12-04-2021 Urnls dip stick/tabl et rgnt auto w/o microscopy Kiara Kapoor [facility] Work Phone: Start: 12-04-2021 Us retroperitoneal r eal time w/image limited Kiara Kapoor [facility] Work Phone: Start: 12-04-2021 BASIC METABOLIC [...] 25 hydroxy includes fractions if performed ciaran Yoalnda Jason Work Phone: Start: 12-26-2018 Assay of free thyroxine ciaran Yolanda Jason Work Phone: Start: 12-26-2018 Assay of parathormone A sasha Yolanda Jason Work Phone: Start: 12-26-2018 Assay of prolactin Latrice Gomez Work Phone: Start: 12-26-2018 Assay of thyroid stimulating hormone tsh ciaran Gomez Work Phone: Start: 12-26-2018 [facility] Work Phone: Start: 12-26-2018 Assay of urine sodium A sasha Gomez Work Phone: Start: 12-26-2018 Creatinine other source ciaran Gomez Work Phone: Start: 02-25-2013 Cholecystectomy BASIM RAMSEY MD Plan of Treatment Date Care Activity Detail Author Start: 01-31-2030 Screening for malignant neoplasm of colon [facility] Start: 02-07-2027 Lipid panel Lipid Panel [facility] Start: 08-20-2026 DTaP/Tdap/Td vaccine (2 - Td or Tdap) DTaP/Tdap/Td vaccine (2 - Td or Tdap) [facility] Start: 08-20-2026 DTaP/Tdap/Td vaccine (2 - Td) DTaP/Tdap/Td vaccine (2 - Td) [place] Start: 08-20-2026 DTaP/Tdap/Td Vaccines (2 - Td or Tdap) DTaP/Tdap/Td Vaccines (2 - Td or Tdap) [facility] Start: 11-09-2024 X-ray of lumbosacral spine L/S Spine Bending Flex/Ext [facility] Start: 11-09-2024 XR Spine Lumbar and Sacrum Views [facility] Start: 10-03-2024 End: 10-03-2024 [facility] Start: 08-02-2024 [facility] Start: 07-30-2024 Thyroid stimulating hormone measurement TSH Level [facility] Start: 05-28-2024 Urine culture Urine Culture [facility] Start: 05-28-2024 [facility] Start: 05-14-2024 Patient referral [facility] Work Phone: Start: 01-04-2024 Thyroid stimulating hormone measurement TSH Level [facility] Start: 10-27-2023 Influenza vaccination [facility] Start: 08-01-2023 End: 07-31-2024 Hemoglobin [Mass/volume] in Blood Hemoglobin and hematocrit, blood Lab Routine Hypogonadism in male Expected: 08/01/2023 (Approximate), Expires: 07/31/2024 [facility] Comment on above: Expected: 08/01/2023 (Approximate), Expi res: 07/31/2024 Start: 08-01-2023 End: 07-31-2024 Testosterone [Mass/volume] in Serum or Plasma Testosterone Lab Routine Hypogonadism in male Expected: 08/01/2023 (Approximate), Expires: 07/31/2024 [facility] Work Phone: Comment on above: Expected: 08/01/2023 (Approximate), Expi res: 07/31/2024 Start: 07-31-2023 End: 07-30-2024 Creatinine [Mass/volume] in Serum or Plasma Creatinine, Serum Lab Routine Pituitary adenoma (HCC) Expected: 07/31/2023 (Approximate), Expires: 07/30/2024 [facility] Comment on above: Expected: 07/31/2023 (Approximate), Expi res: 07/30/2024 Start: 07-31-2023 End: 07-30-2024 DXA Skeletal system.axial Views for bone density DEXA bone density axial skeleton Imaging Routine Hypercalcemia Expected: 07/31/2023, Expires: 07/30/2024 [facility] Comment on above: Expected: 07/31/2023, Expires: Start: 07-31-2023 End: 07-30-2024 Hemoglobin [Mass/volume] in Blood Hemoglobin and hematocrit, blood Lab Routine Hypogonadotropic hypogonadism (HCC) Expected: 07/31/2023 (Approximate), Expires: 07/30/2024 [facility] Comment on above: Expected: 07/31/2023 (Approximate), Expi res: 07/30/2024 Start: 07-31-2023 End: 07-30-2024 MR Pituitary and Sella turcica WO and W contrast IV MR pituitary w and wo IV contrast Imaging Routine Pituitary adenoma (HCC) Expected: 07/31/2023, Expires: 07/30/2024 [facility] Comment on above: Expected: 07/31/2023, Expires: Start: 07-31-2023 End: 07-30-2024 Prolactin Prolactin Lab Routine Pituitary adenoma (HCC) Expected: 07/31/2023 (Approximate), Expires: 07/30/2024 [facility] Work Phone: Comment on above: Expected: 07/31/2023 (Approximate), Expi res: 07/30/2024 Start: 07-31-2023 End: 07-30-2024 Testosterone [Mass/volume] in Serum or Plasma Testosterone Lab Routine Hypogonadotropic hypogonadism (HCC) Expected: 07/31/2023 (Approximate), Expires: 07/30/2024 [facility] Comment on above: Expected: 07/31/2023 (Approximate), Expi res: 07/30/2024 Start: 07-31-2023 End: 07-30-2024 Thyrotropin [Units/volume] in Serum or Plasma TSH Lab Routine 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 Expected: 07/31/2023 (Approximate), Expires: 07/30/2024 [facility] Comment on above: Expected: 07/31/2023 (Approximate), Expi res: 07/30/2024 Start: 07-31-2023 End: 07-31-2023 Patient encounter procedure [facility] Start: 05-28-2023 Patient referral [facility] Work Phone: Start: 04-12-2023 End: 04-12-2023 Patient encounter procedure 04/12/2023 8:00 AM EST Office Visit [facility] [address] [place] [address] Ziggy Frazier MD [address] [place] [address] [facility] Start: 02-20-2023 Patient referral [facility] Work Phone: Start: 02-14-2023 End: 02-14-2023 Patient encounter procedure 02/14/2023 7:30 AM EST Office Visit [facility] [address] [facility] [place] [address] Leanne Perales MD [address] [place] [place] [address] [facility] Start: 02-13-2023 Patient discharge [facility] Start: 02-13-2023 [facility] Start: 02-13-2023 Care planning and problem solving actions [facility] Start: 02-12-2023 [facility] Start: 02-12-2023 Following clinical pathway protocol [facility] Start: 02-12-2023 Ambulation without limitation [facility] Start: 02-12-2023 Assessment of risk of venous thromboembolism [facility] Start: 02-12-2023 Bedrest [facility] Start: 02-12-2023 Incentive spirometry [facility] Start: 02-12-2023 Insertion of catheter into peripheral vein [facility] Start: 02-12-2023 Measuring intake and output [facility] Start: 02-12-2023 Notification of physician [facility] Start: 02-12-2023 Oxygen therapy [facility] Start: 02-12-2023 Providing care according to standard [facility] Start: 02-12-2023 Provision of activity privileges [facility] Start: 02-12-2023 Pulse taking [facility] Start: 02-12-2023 Taking patient vital signs [facility] Start: 02-12-2023 End: 02-12-2023 [facility] Start: 02-12-2023 Admission procedure [facility] Start: 02-12-2023 Thrombectomy (Bilateral) Thrombectomy (Bilateral) [facility] Start: 02-06-2023 COVID-19 Vaccine (4 - Booster for Moderna series) COVID-19 Vaccine (4 - Booster for Moderna series) [facility] Comment on above: Postponed from 05/08/2021 (Patient Refus ed) Start: 02-06-2023 COVID-19 Vaccine (4 - Booster) COVID-19 Vaccine (4 - Booster) [facility] Comment on above: Postponed from 05/08/2021 (Patient Refus ed) Start: 02-06-2023 COVID-19 Vaccine (4 - Moderna series) COVID-19 Vaccine (4 - Moderna series) [facility] Comment on above: Postponed from 05/08/2021 (Patient Refus ed) Start: 02-06-2023 Depression Screening Depression Screening [facility] Start: 02-06-2023 Hepatitis C screening Hepatitis C Screening [facility] Comment on above: Postponed from 09/08/1979 (Patient Refus ed) Start: 02-06-2023 HIV screening HIV Screening [facility] Comment on above: Postponed from 1961 (Patient Refus ed) Start: 01-30-2023 End: 01-30-2023 Telemedicine consultation with patient 01/30/2023 10:00 AM EST Telemedicine [facility] [address] [place] [phone] Donna Roberts DO [address] [place] [address] [facility] Start: 01-22-2023 End: 01-22-2023 Patient encounter procedure 01/22/2023 8:30 AM EST Office Visit [facility] [address] [place] [phone] Lauren Borja DO [address] [place] [address] [facility] Start: 01-07-2023 End: 01-07-2023 Patient encounter procedure 01/07/2023 2:45 PM EST Office Visit [facility] [address] [place] [phone] Ziggy Arauz MD [address] [place] [address] [facility] Start: 01-04-2023 End: 01-05-2024 Hemoglobin [Mass/volume] in Blood Hemoglobin and hematocrit, blood Lab Routine Hypogonadism in male Expected: 01/04/2023 (Approximate), Expires: 01/05/2024 [facility] Work Phone: Comment on above: Expected: 01/04/2023 (Approximate), Expi res: 01/05/2024 Start: 01-04-2023 End: 01-05-2024 Macropolactin Macropolactin Lab Routine Hypogonadism in male Expected: 01/04/2023 (Approximate), Expires: 01/05/2024 [facility] Comment on above: Expected: 01/04/2023 (Approximate), Expi res: 01/05/2024 Start: 01-04-2023 End: 01-05-2024 Testosterone [Mass/volume] in Serum or Plasma Testosterone Lab Routine Hypogonadism in male Expected: 01/04/2023 (Approximate), Expires: 01/05/2024 [facility] Comment on above: Expected: 01/04/2023 (Approximate), Expi res: 01/05/2024 Start: 01-02-2023 End: 01-02-2023 Patient encounter procedure [facility] Start: 01-02-2023 End: 01-02-2023 Patient encounter procedure 01/02/2023 8:30 AM EST Office Visit [facility] [address] [place] [address] Ziggy Arauz MD [address] [place], [place] [phone] [facility] Start: 12-25-2022 End: 12-25-2022 Admission to same day surgery center 12/25/2022 10:30 AM EDT - 12/25/2022 1:00 PM EDT Surgery [facility] OR [address] [place] [phone] Ziggy Arauz MD [address] [place] [address] LEFT ILIOFEMORAL DEEP VEIN THROMBOSIS, THROMBECTOMY AND STENTING [32647 (CPT )] [facility] Comment on above: LEFT ILIOFEMORAL DEEP VEIN THROMBOSIS, T HROMBECTOMY AND STENTING [20997 (CPT )] Start: 12-25-2022 End: 12-25-2022 Anesthesia consultation 12/25/2022 10:30 AM EDT Anesthesia Event [facility] [address] [place] [phone] Carissa Romero, DIGITAL FORENSICS INVESTIGATOR - BUFF WHEEL FABRICATOR [address] [place] [address] [facility] Start: 12-25-2022 End: 12-25-2022 Open/perq placement intravascular stent same 1st TRANSCATHETER PLACEMENT OF AN INTRAVASCULAR STENT(S), OPEN OR PERCUTANEOUS INITIAL VEIN 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) 12/25/2022 10:30 AM EDT [facility] Operating Room Start: 12-25-2022 End: 12-25-2022 Prq transluminal mechanical thrombectomy vein PERCU TRANSLUMIN MECHNCL THROMBEC, VEIN(S), INCL INTRAPROCED PHARMACOLO THROMBOLYTIC INJ & FLUORO GUIDNCE 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 [facility] [place] [phone] Ziggy Arauz MD [address] [phone] [facility] MAIN OR Start: 12-13-2022 End: 12-13-2022 Admission to establishment 12/13/2022 10:00 AM EDT Pre-Admission Testing [facility] Pre-Admit Testing [address] [place] [phone] [facility] Pre-Admit Testing Start: 12-13-2022 End: 12-13-2022 Patient encounter procedure 12/13/2022 Office Visit Urology Won Smith, DIGITAL FORENSICS INVESTIGATOR - BUFF WHEEL FABRICATOR [address] [place] [address] [facility] Start: 12-12-2022 End: 12-12-2022 Patient encounter procedure 12/12/2022 9:00 AM EDT Office Visit [facility] [address] [place] [phone] Tayler Salmon, DIGITAL FORENSICS INVESTIGATOR - SUPERVISOR ACCOUNTING CLERKS [address] [place] [address] [facility] Start: 12-11-2022 End: 12-11-2022 Patient encounter procedure 12/11/2022 9:20 AM EDT Procedure Visit [facility] [address] [place] [address] Garrison Garza MD [address] [place] [address] [facility] Start: 12-10-2022 End: 12-10-2022 Patient encounter procedure 12/10/2022 2:15 PM EDT Office Visit [facility] [address] [place] [phone] Ziggy Arauz MD [address] [place] [address] [facility] Start: 12-04-2022 End: 12-04-2022 Patient encounter procedure [facility] [address] [facility] Start: 12-02-2022 Lipid panel Lipids [facility] Start: 12-02-2022 Thyroid stimulating hormone measurement TSH Level [facility] Start: 11-14-2022 End: 11-14-2022 Patient encounter procedure 11/14/2022 11:00 AM EDT Office Visit [facility] [address] [facility] [address] [place] [phone] Cheryl Basilio MD [address] [facility] [address] [place] [address] [facility] Start: 10-26-2022 COVID-19 Vaccine () COVID-19 Vaccine () [facility] Start: 10-26-2022 Influenza vaccination Influenza Vaccine (#1) [facility] Start: 10-24-2022 End: 10-24-2022 Patient encounter procedure 10/24/2022 11:20 AM EDT Office Visit [facility] [address] [phone] Cheryl Basilio MD [address] [address] [facility] Start: 10-11-2022 End: 10-12-2023 Bacteria identified in Urine by Culture Urine culture (clean catch) Microbiology Routine Recurrent UTI Expected: 10/11/2022 (Approximate), Expires: 10/12/2023 [facility] Comment on above: Expected: 10/11/2022 (Approximate), Expi res: 10/12/2023 Start: 10-11-2022 End: 10-12-2023 Urinalysis complete panel - Urine Urinalysis with reflex microscopic (clean catch) Lab Routine Recurrent UTI Expected: 10/11/2022 (Approximate), Expires: 10/12/2023 [facility] Work Phone: Comment on above: Expected: 10/11/2022 (Approximate), Expi res: 10/12/2023 Start: 10-11-2022 End: 10-11-2022 Patient encounter procedure 10/11/2022 8:20 AM EDT Office Visit [facility] [address] [facility] [address] [place] [address] Cheryl Basilio MD [address] [place] [address] [address] [place] [address] [facility] Start: 10-10-2022 End: 10-11-2023 Complete PFT pre and post bronchodilator Complete PFT pre and post bronchodilator PFT Routine History of tobacco abuse Centrilobular emphysema (HCC) Expected: 10/10/2022 (Approximate), Expires: 10/11/2023 [facility] Work Phone: Comment on above: Expected: 10/10/2022 (Approximate), Expi res: 10/11/2023 Start: 10-10-2022 End: 10-11-2023 CT Chest for screening WO contrast CT lung screening low dose Imaging Routine History of tobacco abuse Centrilobular emphysema (HCC) Pleural effusion Expected: 10/10/2022, Expires: 10/11/2023 [facility] Comment on above: Expected: 10/10/2022, Expires: Start: 09-18-2022 Subsequent hospital visit by physician 09/18/2022 8:15 AM EDT Hospital Encounter [facility] [address] [place] [address] Leanne Perales MD [address] [place] [address], [place] [address] [facility] [address] Start: 09-13-2022 End: 09-14-2023 Bacteria identified in Urine by Culture Urine culture (clean catch) Microbiology Routine Urinary tract infection symptoms Expected: 09/13/2022 (Approximate), Expires: 09/14/2023 [facility] Work Phone: Comment on above: Expected: 09/13/2022 (Approximate), Expi res: 09/14/2023 Start: 08-17-2022 End: 08-18-2023 Bacteria identified in Urine by Culture Urine culture (clean catch) Microbiology Routine Dysuria Urinary frequency Urinary urgency Leukocytes in urine Hematuria, unspecified type Recurrent UTI Expected: 08/17/2022 (Approximate), Expires: 08/18/2023 [facility] Work Phone: Comment on above: Expected: 08/17/2022 (Approximate), Expi res: 08/18/2023 Start: 08-06-2022 End: 08-06-2022 Patient encounter procedure 08/06/2022 Office Visit Family Medicine Leanne Perales MD [address] [place] [address], [facility] [place], [place] [id number] [facility] Start: 08-03-2022 Depression Screen Depression Screen [facility] Start: 08-03-2022 Lipid panel Lipids [facility] Start: 06-13-2022 End: 06-13-2022 Patient encounter procedure 06/13/2022 Office Visit Endocrinology Rocio Ruiz MD [address] [place] [id number] [employer] Endocrinology Start: 05-17-2022 End: 05-18-2023 Bacteria identified in Urine by Culture Urine culture Microbiology Routine Right flank pain Expected: 05/17/2022 (Approximate), Expires: 05/18/2023 [facility] Work Phone: Comment on above: Expected: 05/17/2022 (Approximate), Expi res: 05/18/2023 Start: 03-06-2022 End: 03-06-2023 CT Lumbar spine WO contrast CT lumbar spine wo IV contrast Imaging Routine Right flank pain Acute right-sided low back pain without sciatica Expected: 03/06/2022, Expires: 03/06/2023 [facility] [employer] Work Phone: Comment on above: Expected: 03/06/2022, Expires: Start: 03-05-2022 End: 03-05-2022 Patient encounter procedure 03/05/2022 Office Visit Endocrinology Rocio Calix MD [address] [facility] [address] [place] [id number] Endocrinology [facility] Start: 02-06-2022 End: 02-06-2022 Patient encounter procedure 02/06/2022 Office Visit Family Medicine Leanne Perales MD [address] [facility], [place] [address] [facility] Start: 12-15-2021 End: 12-15-2022 US Retroperitoneum US retroperitoneum Imaging Routine Complex renal cyst Expected: 12/15/2021, Expires: 12/15/2022 [facility] Work Phone: Comment on above: Expected: 12/15/2021, Expires: 3 Start: 12-07-2021 End: 12-07-2021 Patient encounter procedure 12/07/2021 Appointment Radiology Tayler Rivas, DIGITAL FORENSICS INVESTIGATOR - BUFF WHEEL FABRICATOR [address] [place] [address] Start: 10-26-2021 Influenza vaccination Flu vaccine (#1) [facility] Start: 09-25-2021 Influenza vaccination Flu vaccine (#1) [facility] Start: 2021 RSV Immunization aged 60 or older (1 - 1-dose 60+ series) RSV Immunization aged 60 or older (1 - 1-dose 60+ series) [facility] Start: 07-11-2021 COVID-19 Vaccine (4 - Booster) COVID-19 Vaccine (4 - Booster) [facility] Start: 07-15-2019 Lipid screen Lipid screen [place], [place] Start: 07-12-2019 Colon cancer screen colonoscopy Colon cancer screen colonoscopy [place] Start: 06-26-2019 Creatinine monitoring Creatinine monitoring [place], [place] Start: 06-26-2019 Potassium monitoring Potassium monitoring [place] Start: 06-26-2019 TSH testing TSH testing [place] Start: 01-20-2019 End: 01-20-2019 Office Visit 01/20/2019 Office Visit Endocrinology Hema Gomez MD [address] [place] [address] [phone] Endocrinology [facility] Start: 01-09-2019 End: 01-09-2019 Office Visit 01/09/2019 Office Visit Family Medicine Leanne Perales MD [address] [facility], [place] [address] [phone] [facility] Start: 10-26-2018 Influenza vaccination Flu vaccine (#1) [place] Start: 05-26-2018 Diabetes screen Diabetes screen [facility] Start: 09-08-2011 Screening for malignant neoplasm of lung Lung Cancer Screening [facility] Start: 09-08-2011 Shingles Vaccine (1 of 2) Shingles Vaccine (1 of 2) [place] Start: 2006 Screening for malignant neoplasm of colon [facility] Start: 09-08-1979 Diabetes mellitus screening Diabetes Screening [facility] Start: 09-08-1979 Hepatitis C screening Hepatitis C Screening [facility] Start: 1961 MMR Vaccines (1 of 1 - Standard series) MMR Vaccines (1 of 1 - Standard series) [facility] Start: 1960 Hepatitis B Vaccines (1 of 3 - 3-dose series) Hepatitis B Vaccines (1 of 3 - 3-dose series) [facility] Start: 1960 HIV screening HIV Screening [facility] Start: 1960 Screening for malignant neoplasm of colon [facility] End: 12-26-2018 ACTH ACTH Lab Routine Prolactin secreting pituitary adenoma (HCC) 1 Occurrences starting 12/26/2018 until 12/26/2018 [place] Comment on above: 1 Occurrences starting 12/26/2018 until 12/26/2018 ACTH ACTH Lab Routine Prolactin secreting pituitary adenoma (HCC) 12/26/2018 9:03 AM EDT [place] End: 12-11-2021 Basic Metabolic Panel w/ Reflex to MG Basic Metabolic Panel w/ Reflex to MG Lab Routine Daily for 1 Weeks starting 12/05/2021 until 12/11/2021, 2 completed [facility] Work Phone: Comment on above: Daily for 1 Weeks starting 12/05/2021 un til 12/11/2021, 2 completed End: 12-26-2018 Calcium, Urine Calcium, Urine Lab Routine Primary hyperparathyroidism (HCC) 1 Occurrences starting 12/26/2018 until 12/26/2018 [place] Comment on above: 1 Occurrences starting 12/26/2018 until 12/26/2018 Calcium, Urine Calcium, Urine L ab Routine Primary hyperparathyroidism (HCC) 12/26/2018 5:45 AM EDT [place] End: 12-11-2021 CBC W Auto Differential panel - Blood CBC with Auto Differential Lab Routine Daily for 1 Weeks starting 12/05/2021 until 12/11/2021, 2 completed [facility] Work Phone: Comment on above: Daily for 1 Weeks starting 12/05/2021 un til 12/11/2021, 2 completed CBC W Auto Different ial panel - Blood [facility] metabo lic 1999 panel - Serum or Plasma [facility] 1999 panel - Serum or Plasma [facility] End: 12-26-2018 Cortisol Cortisol Lab Routine Prolactin secreting pituitary adenoma (HCC) 1 Occurrences starting 12/26/2018 until 12/26/2018 [place] Comment on above: 1 Occurrences starting 12/26/2018 until 12/26/2018 Cortisol Cortisol Lab Rou rolf Prolactin secreting pituitary adenoma (HCC) 12/26/2018 9:03 AM EDT [place] CT Abdomen and Pelvi s WO and W contrast IV [facility] Culture, Blood 2 Culture, Blood 2 Microbiology STAT 12/01/2021 10:28 AM EDT [facility] Work Phone: End: 11-27-2021 Culture, Urine [facility] Work Phone: Comment on above: One Time for 1 Occurrences starting 04/2021 until 11/27/2021 Doppler ultrasonogra phy of aorta [facility] Electrocardiographic procedure [facility] End: 10-13-2022 Factor 5 [facility] Work Phone: Comment on above: Once (Lab) for 1 Occurrences starting until 10/13/2022 Lipid 1996 panel - S suhail or Plasma [facility] Lipid 1996 panel - S suhail or Plasma [facility] Microscopic examinat ion of blood, culture Culture, Blood Microbiology STAT 12/01/2021 11:05 AM EDT [facility] Work Phone: End: 09-16-2023 MR Pituitary and Sella turcica WO and W contrast IV [facility] Work Phone: Comment on above: Once for 1 Occurrences starting 09/16/19 until 09/16/2023 End: 10-18-2021 MRI BRAIN W WO CONTRAST [facility] Work Phone: Comment on above: Once for 1 Occurrences starting 10/19/19 until 10/18/2021 OUTSIDE PROCEDURE SCAN OUTSIDE P ROCEDURE SCAN Procedures Ordered: 09/17/2022 [facility] Comment on above: Ordered: 09/17/2022 OUTSIDE PROCEDURE SCAN OUTSIDE P ROCEDURE SCAN Procedures Ordered: 10/09/2022 [facility] [employer] Comment on above: Ordered: 10/09/2022 Oxygen therapy [[facility] Data Set] Initiate Oxygen Therapy Protocol Respiratory Care Routine As Needed until discontinued starting 12/01/2021 [facility] Work Phone: Comment on above: As Needed until discontinued starting Patient Education [facility] Work Phone: Patient referral [facility] Work Phone: Prolactin measurement [facility] Prostate specific an tigen measurement [facility] Prostate specific an tigen measurement [facility] T4 free measurement [facility] Testosterone measurement [facility] Thyroid stimulating hormone measurement [facility] Thyroid stimulating hormone measurement [facility] End: 10-10-2022 US Retroperitoneum [facility] [employer] Work Phone: Comment on above: Once for 1 Occurrences starting 10/11/19 until 10/10/2022 Vitamin D, 25-hydrox y measurement [facility] XR Spine Lumbar and Sacrum GE 4 Views [facility] Immunizations Immunization Date Immunization Notes Care Provider [facility] 12-14-2021 influenza, injectabl e, quadrivalent, preservative free Leanne Perales MD Work Phone: [facility] 12-14-2021 influenza virus vaccine, unspecified formulation Chana Brown DIGITAL FORENSICS INVESTIGATOR - BUFF WHEEL FABRICATOR Work Phone: [facility] 08-10-2021 Pneumococcal conjuga te PCV20, PF (Prevnar 20) Rocio Ruiz MD Work Phone: [facility] Work Phone: 08-03-2021 zoster vaccine recombinant Rocio Ruiz MD Work Phone: [facility] Work Phone: 03-13-2021 COVID-19, MODERNA BL UE border, Primary or Immunocompromised, (age 12y+), IM, 100 mcg/0.5mL Rocio Ruiz MD Work Phone: [facility] Work Phone: 01-11-2021 influenza, injectabl e, quadrivalent, preservative free Rocio Ruiz MD Work Phone: [facility] 01-11-2021 zoster vaccine recombinant Rocio Ruiz MD Work Phone: [facility] Work Phone: 07-08-2020 COVID-19, MODERNA BL UE border, Primary or Immunocompromised, (age 12y+), IM, 100 mcg/0.5mL Rocio Ruiz MD Work Phone: [facility] Work Phone: 06-17-2020 COVID-19, MODERNA BL UE border, Primary or Immunocompromised, (age 12y+), IM, 100 mcg/0.5mL Rocio Ruiz MD Work Phone: [facility] Work Phone: 01-11-2020 influenza, injectabl e, quadrivalent, preservative free Rocio Ruiz MD Work Phone: [facility] Work Phone: 01-09-2019 influenza, injectabl e, quadrivalent, preservative free Rocio Ruiz MD Work Phone: [facility] Work Phone: 01-06-2018 influenza, injectabl e, quadrivalent, preservative free [facility] 08-20-2016 pneumococcal polysaccharide vaccine, [facility]ent [facility] [place] 08-20-2016 tetanus toxoid, redu jenny diphtheria toxoid, and acellular pertussis vaccine, adsorbed [facility] Payers Date Payer Category Payer Self-pay 2021 Unknown 2021 Unknown [id number] 2014 Private Health Insurance [facility] xxxxxxxxx 2014-[facility] [phone] [address] [place] [address] xxxxxxxxx [id number]. [id number] 1961 Unknown [id number] 2.16.840.1.390854.3.579.2. 8 1961 Unknown [id number] 2.16.840.1.304219.3.579.2. 1961 Unknown [id number] 2.16.840.1.479202.3.579.2. 668 1961 Unknown [id number] 2.16.840.1.451461.3.579.2. 8 1961 Unknown [id number] 2.16.840.1.079769.3.579.2. 668 1961 Unknown [id number] 2.16.840.1.939488.3.579.2. 627 1961 Unknown [id number] 2.16.840.1.919053.3.579.2. 627 1961 Unknown [id number] 2.16.840.1.295369.3.579.2. 627 Private Health Insurance [facility] [id number] Unknown [id number] 2.16.840.1.627386.3.579.2. 462 Unknown [id number] 2.16.840.1.649106.3.579.2. 462 Unknown [id number] 2.16.840.1.611639.3.579.2. 462 Unknown [id number] 2.16.840.1.440018.3.579.2. 462 Unknown [id number] 2..840.1.527176.3.579.2. 462 Unknown [id number] 2.16.840.1.095143.3.579.2. 462 Unknown [id number] 2.16.840.1.704134.3.579.2. 462 Unknown [id number] 2.16.840.1.376895.3.579.2. 462 Unknown [id number] 2.16.840.1.369317.3.579.2. 462 Unknown [id number] 2.16.840.1.223820.3.579.2. 462 Unknown [id number] 2.16.840.1.445390.3.579.2. 462 Unknown [id number] 2.16.840.1.358954.3.579.2. 462 Unknown [id number] 2.16.840.1.358449.3.579.2. 462 Unknown [id number] 2.16.840.1.044318.3.579.2. 462 Unknown [id number] 2.16.840.1.188914.3.579.2. 462 Unknown [id number] 2.16.840.1.100200.3.579.2. 462 Unknown [id number] 2.16.840.1.121323.3.579.2. 462 Unknown [id number] 2.16.840.1.872515.3.579.2. 462 Unknown [id number] 2.16.840.1.691833.3.579.2. 462 Unknown [id number] 2.16.840.1.245709.3.579.2. 462 Social History Date Type Detail Facility Start: 08-08-2018 End: 10-03-2024 Tobacco smoking status NHIS Current every day smoker [place] Start: 03-28-1982 End: 03-28-2022 History of tobacco use Cigarette [place] Start: 08-08-2018 End: 03-06-2022 Cigarettes smoked current (pack per day) - Reported [place] Start: 08-08-2018 End: 10-12-2022 Alcohol intake No [place] Sex Assigned At Not on file [place] Start: 01-09-2019 End: 01-02-2023 Tobacco use and exposure Smokeless tobacco non-user [facility] Work Phone: Start: 2021 End: 03-06-2022 Alcohol intake Current non-drinker of alcohol (finding) [facility] Work Phone: Start: 07-11-2020 End: 02-06-2022 History SDOH Alcohol Frequency 2 [facility] [employer] Work Phone: Start: 07-11-2020 End: 02-06-2022 History SDOH Alcohol Std Drinks 1 [facility] Work Phone: Start: 12-26-2019 History SDOH Alcohol Comment rarely [facility] Work Phone: Start: 01-09-2019 History SDOH Physical Activity DPW 0 [facility] Work Phone: Start: 08-03-2021 End: 02-06-2022 History SDOH Financial 5 [employer] Work Phone: Start: 1960 Sex Assigned At Male [facility] Start: 09-16-2021 End: 11-14-2022 Exposure to SARS-CoV-2 (event) Not sure [facility] How hard is it for y ou to pay for the very basics like food, housing, medical care, and heating Not hard at all [facility] (I/We) worried wheth er (my/our) food would run out before (I/we) got money to buy more. Never true [facility] Start: 12-14-2021 Gender identity Identifies as male gender (finding) [facility] Start: 12-14-2021 Sexual orientation Heterosexual (finding) [facility] Start: 09-14-2022 End: 05-28-2024 Tobacco smoking status AKIS Occasional tobacco smoker [facility] How often to you hav e a drink containing alcohol? Monthly or less [facility] How many standard drinks containing alcohol do you have on a typical day? 1 or 2 [facility] How often do you hav e 6 or more drinks on 1 occasion? Never [facility] Start: 10-10-2022 End: 01-02-2023 Tobacco smoking status AKIS Ex-smoker [facility] Start: 03-28-1982 End: 03-28-2022 History of tobacco use Current smoker [facility] Start: 10-10-2022 End: 07-31-2023 Alcohol intake Current drinker of alcohol (finding) [facility] Within the last year , have you been afraid of your partner or ex-partner? No [facility] Start: 12-10-2022 Alcohol Comment occassionally [facility] Start: 02-06-2023 End: 06-06-2023 Tobacco smoking status [facility] Unknown if ever smoked [facility] Start: 12-24-2023 Tobacco smoking status Heavy tobacco smoker (finding) [facility] Sexual Orientation Maxine phillips [facility] Start: 09-27-2022 End: 06-02-2024 Sex Male (finding) [facility] Medical Equipment Procedure Code Equipment Code Equipment Origin al Text Equipment Identifier Dates Iliofemoral vein stent ()[id number] [id number] [facility] Start: 02-12-2023 Iliofemoral vein stent ()[id number] [id number] [facility] Start: 02-12-2023 Goals Date Patient Goal Desired [...] Functional status Activity Abili ty Standby Assist [facility] Work Phone: 02-13-2023 Functional status Ambulates [facility] Work Phone: Mental Status Date Assessment Result Facility 02-13-2023 Cognitive function Level Of Cons ciousness Awake;Alert;Appropriate;Follow s Commands [facility] Work Phone: 02-13-2023 Cognitive function Voice/Name [facility] Work Phone: Clinical Notes 11-27-2021 to 10-12-2024 Note Date & Type Note Facility 10-12-2024 Radiology Diagnostic study note [facility] Imaging Services [address] [place], [place] [id number] L/S Spine Min 4 Views MR#: [id number] Acct: [id number] Name: CORRIE QUEEN Rep #: [id number] : 1960 M 64 From: Vernon Acuña MD PCP: Dr. Justice Bailey, DO Status: RE G CLI Study:L/S Spine Min 4 Views Date of Exam: 10/09/24 Exam# [id number] Ordering Dr: Xiomara Johnston SUPERVISOR ACCOUNTING [employer] PROCEDURE: L/S SPINE MIN 4 VIEWS 10/09/2024 [...] and spondylosis. Facet joint osteoarthritis. Reading Location: [facility] CC: RUBI Johnston; Dr. Justice Bailey, ~ Health Care Law Specialist: Signed [facility] 10-03-2024 Radiology Diagnostic study note [facility] Imaging Services [address] [place] [address] Abdomen/Pelvis W IV Cont ONLY MR#: [id number] Acct: [id number] Name: CORRIE QUEEN Rep #: [id number] : 1960 M 64 From: Jairo Elmore MD PCP: Dr. Justice Bailey, Status: RE G ER Study:Abdomen/Pelvis W IV Cont ONLY Date of E xam: 10/03/24 Exam# [id number] Ordering Dr: Kelvin Luque MD PROCEDURE: ABDOMEN/PELVIS [...] abnormalities. Liver steatosis and hepatomegaly. Reading Location: [facility] CC: Dr. Justice Bailey DO; Dr. Ludy Luque MD ~ Health Care Law Specialist: Signed [facility] 08-11-2024 Evaluation note Diagnosis Onset Date Resolution Sinusitis acute August 11 3:23pm Musculoskeletal back pain inactive October 08, 2024 8:45am Degenerative disc disease (DDD) of lumbar region with discogenic back pain acute Septem beckie 2024 9:19am Lumbar radiculopathy acute Sept ember 2024 9:19am [facility] Work Phone: 1(224) 119-694206-17-2025 [facility] [place], [place] [address] OFFICE VISIT Date of Service: 08/11/24 MR#: [id number] Acct: [id number] Name: CORRIE QUEEN Rep #: [id number] : 1960 Provider: Dr. 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 He is organizing a motorHexaformere run as a Merge Social event Saturday and he would like to [...] Cosigner Signature: Date (if applicable) CC: ~ [facility]06-17-2025 Progress note Author Justice Bailey [facility] Note Date/Time August 11, 2024 3:57 pm [facility] [address] [place] [address] OFFICE VISIT Date of Service: 08/11/24 MR#: [id number] Acct: [id number] Name: CORRIE QUEEN Rep #: [id number] : 1960 Provider: Dr. Sorin Bailey, Age/Sex: 63/M Location: [facility] Status: Signed Intake [...] RIGHT Chief Complaint: eyes pressure and congestion Staking Technician Required: No Accompanied by: Self Is [...] is organizing a motorcycle run as a Merge Social event Saturday and he would like to [...] Cosigner Signature: Date (if applicable) CC: ~ [facility] Work Phone: 1(570) 175-247006-08-2025 Radiology Diagnostic study note [facility] Imaging Services [address] [place] [id number] Abdomen/Pelvis without Cont MR#: [id number] Acct: [id number] Name: CORRIE QUEEN Rep #: [id number] : 1960 M 63 From: Bernadette Ovalles MD PCP: Dr. Justice Bailey DO Status: RE G ER Study:Abdomen/Pelvis without Cont Date of Exa m: 08/02/24 Exam# [id number] Ordering Dr: Karine Hawkins DO PROCEDURE: ABDOMEN/PELVIS [...] Bailey, DO; Dr. 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 June 8:13am Pituitary macroadenoma chronic Ma y 2024 8:13am Smoker chronic July 17, 2024 8:13am Sinusitis acute August 11 3:23pm [facility] Work Phone: 1(377) 611-371005-23-2025 Evaluation note* Diagnosis Onset Date Resolution Status Admit Date Hypercalcemia chronic July 17, 2 025 8:13am Hypogonadism 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 June 8:13am 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 June 8:13am Pituitary macroadenoma chronic Ma y 2024 8:13am Smoker chronic July 17, 2024 8:13am Sinusitis acute August 11 3:23pm Musculoskeletal back pain acute October 08, 2024 8:45am [facility] Work Phone: 1(322) 563-763705-23-2025 Evaluation note* Diagnosis Onset Date Resolution Status Admit Date Hypercalcemia chronic July 17, 2 025 8:13am Hypogonadism 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 June 8:13am 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 June 8:13am Pituitary macroadenoma chronic Ma y 2024 8:13am Smoker chronic July 17, 2024 8:13am Sinusitis acute August 11 3:23pm Musculoskeletal back pain inactive October 08, 2024 8:45am [facility] Work Phone: 1(703) 141-971804-03-2025 Evaluation note* Diagnosis Onset Date Resolution Status Admit Date Strain of lumbar region acute A pri2024 12:52pm Hypercalcemia chronic July 17, 2 025 8:13am Hypogonadism 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 June 8:13am 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 June 8:13am Pituitary macroadenoma chronic Ma y 2024 8:13am Smoker chronic July 17, 2024 8:13am [facility] Work Phone: 1(553) 672-618504-03-2025 Evaluation note* Diagnosis Onset Date Resolution Status Admit Date Strain of lumbar region acute A pri2024 12:52pm Hypercalcemia chronic July 17, 2 025 8:13am Hypogonadism 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 June 8:13am 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 June 8:13am Pituitary macroadenoma chronic Ma y 2024 8:13am Smoker chronic July 17, 2024 8:13am Sinusitis acute August 11 3:23pm [facility] Work Phone: 1(953) 576-931302-17-2025 Chief complaint+Reason for visit Narrative * Chief [...] 13am Smoker July 17, 2024 8:13a m [facility] Work Phone: 1(303) 242-818602-17-2025 Chief complaint+Reason for visit Narrative * Chief [...] m Sinusitis August 11, 2024 3:23 pm [facility] Work Phone: 1(113) 272-786212-31-2024 Evaluation note* Diagnosis Onset Date Resolution Status [...] lumbar region acute A pril 2024 12:52pm [facility] Work Phone: 1(800) 753-965206-06-2024 Telephone encounter Note* Telephone Encounter - Janette Calderon - 08/01/2023 4:13 PM EDT Message released to patient as written. Patient's further questions if applicable: Patient voiced understanding. Stated he will pick his medication up tomorrow. Please have clinical team call patient to schedule to have testosterone levelschecked. Were all questions from office addressed or relayed to the patient from encounter: Yes [id number] Miscellaneous Notes* Telephone Encounter - Janette Calderon [...] after starting testosterone treatment [id number] Telephone encounter Note* Telephone Encounter - Rocio [...] checked 2 months after starting [facility] [facility] [id number] History of Present illness Narrative* Rocio Ruiz MD - 07/31/2023 9:20 AM EDT Images from the original note were not included. 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 Monge , but has missed his [...] gland and craniopharyngeal duct (pouch) ([facility]) Chest pain, unspecified Chills 05/28/2022 Chronic flank pain Chronic pain Diverticulitis DVT (deep venous thrombosis) ([facility]) 2022 left leg Esophageal reflux Essential [...] hyperlipidemia Other anterior pituitary disorders ([facility]) Other testicular hypofunction Pituitary tumor Pyelonephritis [...] the signing physician directly. documented in this encounterSRegional Medical CenterYkockb32-77-0806 Telephone encounter Note* Telephone Encounter - Angela Brandt RN - 06/19/2023 6:50 PM EDT We have been unable to reach your patient to schedule their testing. Test Name: Complete PFT pre and post bronchodilator 1st Attempt: 06/15/2023 mychart message 2nd Attempt: 06/19/2023 LVM. [facility] HospitalUiqnrc27-65-1898 Miscellaneous Notes* Telephone Encounter - Angela Brandt RN - 06/19/2023 6:50 PM EDT We have been unable to reach your patient to schedule their testing. Test Name: Complete PFT pre and post bronchodilator 1st Attempt: 06/15/2023 mychart message 2nd Attempt: 06/19/2023 LVM. documented in this [facility]03-05-2024 Telephone encounter Note* Telephone Encounter - Isa Cali NP - 04/30/2023 9:36 AM EST Multiple no shows and cancellations. Needs seen in office for refills. Isa [facility] HospitalWbwloe21-14-0282 Miscellaneous Notes* Telephone Encounter - Isa Cali NP - 04/30/2023 9:36 AM EST Multiple no shows and cancellations. Needs seen in office for refills. Isa documented in this [facility]12-20-2023 Discharge summary Author Ryan Ceja [facility] February 13, 2023 3:02pm Note Date/Time February 13, 2023 1:56pm [facility] Medical Records Department [address] [place] [address] Discharge Summary 02/13/23 1345 MR#: [id number] Acct: [id number] Name: CORRIE QUEEN Rep #:[id number] : 1960 62 From: Dolly SHAFFER PCP: CHERYL BASILIO Status:ADM TAMMY Location: [place] [address] Providers Date of Admission: 02/12/23 Primary Care [...] 77.5 H, Lymph % (Auto) 12.6 L, [place] % (Auto) 8.5, Eos % (Auto) 0.8, [...] appointment time please contact the office at [phone]. Meaningful Use Info Meaningful Use Diagnoses (Choose all that apply): VTE VTE Anticoag overlap given w/in hospital stay or rx'd at nv?: Yes Pt receive overlap for 5 days?: [...] appointment time please contact the office at [phone]. Discharge Orders/Prescriptions Prescriptions: New clopidogrel 75 mg [...] Dr. Ryan Ceja MD; CHERYL BASILIO~ Signed [facility] Work Phone: 1(280) 833-634212-20-2023 Progress note Author Ryan Ceja [facility] February 13, 2023 3:02pm Note Date/Time February 13, 2023 12:22pm [facility] Medical Records Department [address] [place] [address] Progress Note - Surgery 02/13/23 1218 MR#: [id number] Acct: [id number] Name: CORRIE QUEEN Rep #:[id number] : 1960 62 From: Dolly SHAFFER PCP: CHERYL BASILIO Status:ADM TAMMY [facility] Subjective Subjective Mr. Queen is [...] 77.5 H, Lymph % (Auto) 12.6 L, [place] % (Auto) 8.5, Eos % (Auto) 0.8, [...] by Ryan Ceja MD> CC: ~ Signed [facility] Work Phone: 1(764) 292-960412-20-2023 Procedure [facility] 01-25-2023 Telephone encounter Note* Telephone Encounter - Rocio Ruiz MD - 01/25/2023 9:44 AM EST 90 day supply for cabergoiline sent [facility] HospitalSitovr30-46-6069 Miscellaneous Notes* Telephone Encounter - Rocio Ruiz MD - 01/25/2023 9:44 AM EST 90 day supply for cabergoiline sent * Telephone Encounter - Lilia Hart - 01/25/2023 8:46 AM EST Name of caller: Corrie Contact phone number: [phone] Relationship to Patient: patient Provider: Dr Ruiz Practice: Endo Chief Complaint/Reason for Call: Pt states that Dr Mendoza was aware that the pt was on vacation and thatDr Mendoza wanted to know immediately when the pt came back in town so that a prescription of a 90 day supply of cabergoline (Dostinex) 0.5 MG tablet [[id number]] would [facility] on file. Pt states is all out of the medication. Please advise Best time of day caller can be reached: Any Patient advised that office/PCP has 24-48 business hours to return their call: Yes documented in this encounterSRegional Medical CenterWnmjyl29-94-3769 Telephone encounter Note* Telephone Encounter - Lilia Hart - 01/25/2023 8:46 AM EST Name of caller: Corrie Contact phone number: [phone] Relationship to Patient: patient Provider: Dr Ruiz Practice: Endo Chief Complaint/Reason for Call: Pt states that Dr Mendoza was aware that the pt was on vacation and thatDr Mendoza wanted to know immediately when the pt came back in town so that a prescription of a 90 day supply of cabergoline (Dostinex) 0.5 MG tablet [[id number]] would be call in to the [facility] pharmacy on file. Pt states is all out of the medication. Please advise Best time of day caller can be reached: Any Patient advised that office/PCP has 24-48 business hours to return their call: Yes [id number] Telephone encounter Note* Telephone Encounter - Alma Beebe MA - 01/08/2023 11:51 AM EST Submitted PA for testosterone pump 2 pumps daily for 150g for a 30 day supply. Waiting on determination from [facility]. [facility] [id number] Miscellaneous Notes* Telephone Encounter - Alma Beebe [...] Name of caller: Corrie Contact phone number: [phone] Relationship to Patient: patient Provider: Joseph Practice: [...] return their call: Yes documented in this [facility]11-10-2023 Telephone encounter Note* Telephone Encounter - Rocio Ruiz MD - 01/04/2023 12:38 PM EST Was informed by pharmacy that prescription for androgel needs prior auth , can you please help withthis ? Thanks [facility]11-10-2023 Telephone encounter Note* Telephone Encounter - Rocio [...] 01/03/2023 TESTOSTERONE 72 - 623 ng/dL [address] [place] [address]Jberwe91-44-3778 Telephone encounter Note* Telephone Encounter - Alma Beebe MA - 01/04/2023 11:36 AM EST It looks like you sent the cabergoline in on 01/02/23, but does he take testosterone? I do not see it. [facility] [id number] Telephone encounter Note* Telephone Encounter - Pacheco Bronson - 01/04/2023 11:05 AM EST Name of caller: Corrie Contact phone number: [phone] Relationship to Patient: patient Provider: Joseph Practice: [...] business hours to return their call: Yes [id number] Telephone encounter Note* Telephone Encounter - Rocio Ruiz MD - 01/02/2023 4:56 PM EST called and spoke with pharmacist, insurance will not cover a 90-day supply right now but will covera 30-day supply. Prescription for 30 days sent to the pharmacy, informed patient. [id number] Miscellaneous Notes* Telephone Encounter - Rocio Ruiz [...] call back CHANCE. documented in this encounterSumma Vjminc61-83-9169 Telephone encounter Note* Telephone Encounter - Daphne [...] date. Pt requesting a call back CHANCE. [facility] HospitalQssuef83-02-9040 History of Present illness Narrative* Rocio Ruiz MD - 01/02/2023 10:40 AM EST Images from the original note were not included. [facility] ENDOCRINOLOGY [address] [facility] [address] [address] [facility] [address] Dept: [phone] Dept Loc: [phone] Visit type: Established Reason for Visit: Follow-up, [...] Cheryl Basilio MD Referring is PCP Previous Gravel Inspector: Dr Sal & Dr Benito Initial [facility] endocrinology office visit: 2013 Last office visit: August 2021 1.Prolactinoma - Pituitary Macroadenoma: This was diagnosed in 10/2012 when he had presented with headaches , double vision to [facility] and pituitary MRI had shown a 3 [...] is supposed to have followed up with erp business analyst Dr. Monge , but has missed his [...] gland and craniopharyngeal duct (pouch) ([facility]) Chest pain, unspecified Chills 05/28/2022 Chronic flank pain Chronic pain Diverticulitis DVT (deep venous thrombosis) ([facility]) 2022 left leg Esophageal reflux Essential [...] the signing physician directly. documented in this [facility]11-08-2023 Miscellaneous Notes* Addendum Note - Jocelyne Meng - 01/02/2023 10:40 AM ESTAddended by: JOCELYNE MENG on: 01/03/2023 08:18 AM Modules accepted: Orders documented in this [facility]11-08-2023 Note* Addendum Note - Jocelyne Meng - 01/02/2023 10:40 AM ESTAddended by: JOCELYNE MENG on: 01/03/2023 08:18 AM Modules accepted: Orders [facility] HospitalOfptla74-88-5230 NoteAddended by: JOCELYNE MENG on: 01/03/2023 08:18 AM Modules accepted: [facility]11-08-2023 History of Present illness Narrative* Ziggy Arauz [...] for any concerns. . documented in this [facility]10-31-2023 Hospital Discharge instructions* Discharge Instructions* [...] through Care Everywhere. * Bleeding After Surgery ([place] Citizen) documented in this [facility]10-31-2023 Emergency department Note* Pacheco Ortiz MD - 12/25/2022 6:40 PM EDT Emergency Department Encounter [facility] ED Patient: Corrie Queen : 1960 [...] ointment (has no administration in time range) oCrrie Queen is a 62 y.o. male who [...] [facility] and when [facility] [...] for surgery. Call light in reach. * Sierar Brewer RN - 12/25/2022 6:40 PM EDT Bleeding subsided. Pt given dc instructions and follow up care. Pt verbalizes understanding. Pt ambindep to dc area, home w family documented in this [facility]10-31-2023 Emergency department Triage note* Paola Paula RN - 12/25/2022 6:40 PM EDT Patient ambulatory to room 4 presenting status post-op with drainage from site. Patient had an attempted thrombectomy of the left lower leg today with entry behind the left knee; he presents with shadowing on his jeans, and saturated dressing post-op. Surgery [facility] around noon, [facility], and when he [...] preparing for surgery. Call light in reach. [facility] HospitalRgyqaa39-57-1466 Emergency department Triage note* Sierra Brewer RN - 12/25/2022 6:40 PM EDT Bleeding subsided. Pt given dc instructions and follow up care. Pt verbalizes understanding. Pt ambindep to dc area, home w family [facility] HospitalXbblwk59-12-3141 Physician Emergency department Note* Pacheco Ortiz MD - 12/25/2022 6:40 PM EDT Emergency Department Encounter [facility] ED Patient: Corrie Queen : 1960 [...] for clarification. Pacheco Ortiz MD Acute Care [facility] Pacheco Ortiz MD 12/25/22 2017 [facility] HospitalAkjyrn28-52-8391 Note* Nurse Navigation Note - Charley Miguel RN - 12/25/2022 4:58 PM EDT Patient upset wanting to leave,eye drops called to his pharmacy, patient transported out via w/c with the daughter [facility] HospitalCnioyy68-63-9356 Miscellaneous Notes* Nurse Navigation Note - Charley [...] PM EDT Family notified of arrival to [facility] * Op Note - Ziggy Arauz MD [...] and exchanged over a wire for a 8-Belgian sheath tjo the level of the right [...] condition. ZIGGY ARAUZ MD documented in this [facility]10-31-2023 Note* Nurse Navigation Note - [...] Santiago notified they will place new orders. [facility] HospitalUpmgqz35-07-0190 Note* Nurse Navigation Note - Charley Miguel RN - 12/25/2022 4:03 PM EDT Discharge instructions reviewed with the patient and the daughter, patient to follow up with after discharge, no further questions , patient instructed on surgical site care. [facility] HospitalXjzdgl73-01-3059 Note* Perioperative Nursing Note - Charley Miguel RN - 12/25/2022 3:52 PM EDT Daughter called to the room [place] [address]Ycqtui03-19-7049 Note* Perioperative Nursing Note - Charley Miguel RN - 12/25/2022 2:49 PM EDT Family member updated Maury daughter regarding current status and bedrest [address]Jcpvwn10-95-7546 NotePatient: Corrie Montano Evangelist Procedure Summary Date: 12/25/22 Room / Location: [facility] Operating Room Anesthesia Start: 1207 Anesthesia Stop: [...] discharged once all PACU criteria has been met.[facility]10-31-2023 NotePatient: Corrie Montano Evangelist Procedure Summary Date: 12/25/22 Room / Location: [facility] Operating Room Anesthesia Start: 1207 Anesthesia Stop: [...] Hydration status: acceptable No notable events documented. [facility]430 PONV Patient received an inhalational anesthetic [...] Allowed opportunity for questions and acknowledgement of understanding.[facility]10-31-2023 Note* Nurse Navigation Note - Charley Miguel RN - 12/25/2022 2:27 PM EDT Family notified of arrival to [facility] HospitalHjcklb22-25-7300 Hospital Discharge instructions* Discharge Instructions* Pacheco Santiago [...] please call our office. documented in this [facility]10-31-2023 NoteAirway Date/Time: 12/25/2022 12:12 PM Urgency: scheduled General Information and Staff Patient location during procedure: Procedural Resident/RED CROSS EXECUTIVE DIRECTOR: FELISHA Winn CRNA Performed: RED CROSS EXECUTIVE DIRECTOR Performed by: FELISHA Winn CRNA Authorized by: FELISHA Winn CRNA Indications and Patient Condition Indications for airway management: anesthesia Sedation level: RSI Preoxygenated: yes Patient position: sniffing MILS maintained throughout Mask difficulty assessment: 1 - vent by mask Final Airway Details Final airway type: endotracheal airway Successful airway: ETT Cuffed: yes Successful intubation technique: video laryngoscopy Endotracheal tube insertion site: oral Blade: Leon scope Blade size: #3 ETT size (mm): 8.0 Placement verified by: chest auscultation Measured from: teeth ETT to teeth (cm): 22 Number of attempts at approach: [address] [place], [place] [address]210-31-2023 Attending History and physical note* Ziggy Arauz [...] INITIAL VEIN (Left) Location: [facility] Operating Room Surgeons: Ziggy Arauz MD Chief [...] who we are asked to see/evaluate by [facility] 02 for pre-operative evaluation prior to . LEFT ILIOFEMORAL DEEP VEIN THROMBOSIS, THROMBECTOMY AND STENTING (Left) [07561 CPT(R)] TRANSCATHETER PLACEMENT OF AN INTRAVASCULAR STENT(S), OPEN OR PERCUTANEOUS INITIAL VEIN (Left) [25381 CPT(R)] Anesthesia type: General The patient is [...] office note 12/10/2022 ? Denies history of VT, CAD, CHF, TIA, CVA Past Medical History: [...] gland and craniopharyngeal duct (pouch) ([facility]) No date: Chest pain, unspecified 05/28/2022: Chills No date: Diverticulitis 2022: DVT (deep venous thrombosis) ([facility]) Comment: left leg No date: Esophageal [...] Electronically signed by: Carissa Romero APRN - BUFF WHEEL FABRICATOR Date: 12/13/2022 at 10:28 AM [facility] [id number] Note* Op Note - Ziggy Arauz MD [...] and exchanged over a wire for a 8-Belgian sheath tjo the level of the right [...] room in stable condition. ZIGGY ARAUZ MD [facility] HospitalSbznkq68-09-6400 NoteH&P reviewed. The patient was examined and [...] current symptoms. He chooses to proceed as planned.[facility] 12-25-2022 NoteOPERATIVE REPORT SURGEON: ZIGGY ARAUZ [...] and exchanged over a wire for a 8-Belgian sheath tjo the level of the right [...] recovery room in stable condition. ZIGGY ARAUZ, [facility]10-31-2023 History and physical note* Ziggy Arauz [...] Source Note - Carissa Romero APRN - BUFF WHEEL FABRICATOR - 12/13/2022 10:00 AM EDT Images from [...] INITIAL VEIN (Left) Location: [facility] Operating Room Surgeons: Ziggy Arauz MD Chief [...] who we are asked to see/evaluate by [facility] 02 for pre-operative evaluation prior to . LEFT ILIOFEMORAL DEEP VEIN THROMBOSIS, THROMBECTOMY AND STENTING (Left) [10322 CPT(R)] TRANSCATHETER PLACEMENT OF AN INTRAVASCULAR STENT(S), OPEN OR PERCUTANEOUS INITIAL VEIN (Left) [96998 CPT(R)] Anesthesia type: General The patient is [...] office note 12/10/2022 ? Denies history of VT, CAD, CHF, TIA, CVA Past Medical History: [...] INITIAL VEIN (Left) Location: [facility] Operating Room Surgeons: Ziggy Arauz MD Chief [...] who we are asked to see/evaluate by [facility] 02 for pre-operative evaluation prior to . LEFT ILIOFEMORAL DEEP VEIN THROMBOSIS, THROMBECTOMY AND STENTING (Left) [33019 CPT(R)] TRANSCATHETER PLACEMENT OF AN INTRAVASCULAR STENT(S), OPEN OR PERCUTANEOUS INITIAL VEIN (Left) [48683 CPT(R)] Anesthesia type: General The patient is [...] office note 12/10/2022 ? Denies history of VT, CAD, CHF, TIA, CVA Past Medical History: [...] gland and craniopharyngeal duct (pouch) ([facility]) No date: Chest pain, unspecified 05/28/2022: Chills No date: Diverticulitis 2022: DVT (deep venous thrombosis) ([facility]) Comment: left leg No date: Esophageal [...] INITIAL VEIN (Left) Location: [facility] Operating Room Surgeons: Ziggy Arauz MD Chief [...] who we are asked to see/evaluate by [facility] 02 for pre-operative evaluation prior to . LEFT ILIOFEMORAL DEEP VEIN THROMBOSIS, THROMBECTOMY AND STENTING (Left) [24639 CPT(R)] TRANSCATHETER PLACEMENT OF AN INTRAVASCULAR STENT(S), OPEN OR PERCUTANEOUS INITIAL VEIN (Left) [11809 CPT(R)] Anesthesia type: General The patient is [...] thrombosis (DVT) of iliofemoral vein ([facility]) This is now a left iliofemoral [...] office note 12/10/2022 ? Denies history of VT, CAD, CHF, TIA, CVA Past Medical History: [...] gland and craniopharyngeal duct (pouch) ([facility]) No date: Chest pain, unspecified 05/28/2022: Chills No date: Diverticulitis 2022: DVT (deep venous thrombosis) ([facility]) Comment: left leg No date: Esophageal [...] 12/13/2022 at 10:28 AM documented in this [facility]10-31-2023 Attending History and physical note* Ziggy [...] INITIAL VEIN (Left) Location: [facility] Operating Room Surgeons: Ziggy Arauz MD Chief [...] who we are asked to see/evaluate by [facility] 02 for pre-operative evaluation prior to . LEFT ILIOFEMORAL DEEP VEIN THROMBOSIS, THROMBECTOMY AND STENTING (Left) [02243 CPT(R)] TRANSCATHETER PLACEMENT OF AN INTRAVASCULAR STENT(S), OPEN OR PERCUTANEOUS INITIAL VEIN (Left) [81762 CPT(R)] Anesthesia type: General The patient is [...] office note 12/10/2022 ? Denies history of VT, CAD, CHF, TIA, CVA Past Medical History: [...] gland and craniopharyngeal duct (pouch) ([facility]) No date: Chest pain, unspecified 05/28/2022: Chills No date: Diverticulitis 2022: DVT (deep venous thrombosis) ([facility]) Comment: left leg No date: Esophageal [...] tablet (5 mg) by mouth daily. 10/24/22 hCeryl Basilio MD tamsulosin (Flomax) 0.4 MG 24 [...] Electronically signed by: Carissa Romero APRN - BUFF WHEEL FABRICATOR Date: 12/13/2022 at 10:28 AM [facility] HospitalXhnczl87-64-7289 NoteH&P reviewed. The patient was examined and there are no changes to the H&P.[facility]10-31-2023 NoteH&P reviewed. The patient was examined and there are no changes to the H&P.[facility] 12-22-2022 Hospital Discharge instructions* Discharge Instructions* Pacheco Negron MD - 12/22/2022 10:12 AM EDT Tylenol for pain. Call your PCP Sunday 12/24 for results from yesterday's urine culture. * Attachments The following attachments cannot be sent through Care Everywhere. * Flank Pain ED ([place] Citizen) documented in this [facility]10-28-2023 Emergency department Note* Estefany Dunlap RN - 12/22/2022 8:[address] Negron the pt was prescribed Cipro yesterday by Dr. Basilio. Pt had not previously mentioned this to ED providers. Dr. Negron at bedside again speaking with pt. Estefany Dunlap RN 12/22/22 0857 [facility] HospitalSwlcae43-68-5342 Emergency department Note* Estefany Dunlap RN - [...] UA. He then saw Dr. Basilio in [place] yesterday and had another UA as well [...] culture pending KUB and ultrasound unremarkable per [facility]. Patient is concerned that he [...] gland and craniopharyngeal duct (pouch) ([facility]) Chest pain, unspecified Chills 05/28/2022 Chronic flank pain Chronic pain Diverticulitis DVT (deep venous thrombosis) ([facility]) 2022 left leg Esophageal reflux Essential [...] Culture. Procedure Abnormality Status --------- ------ Complete Urinalysis[[id number]] Normal Final result Please view results for [...] determinants of health affecting care: Distrust of [facility] and his PCP ED Medications managed: [...] AM PATIENT REFERRED TO: Cheryl Basilio MD [address] [place] [address] [address] [facility] [address] In 2 days DISCHARGE MEDICATIONS: New Prescriptions [...] Negron MD 12/22/22 1251 documented in this [facility]10-28-2023 Emergency department Note* Estefany Dunlap RN - 12/22/2022 8:38 AM EDT ED medic to room to start IV/obtain labs per orders after physician spoke with pt at length about plan of care. Pt questioning medic why we are doing bloodwork and wants to speak with Dr. Negron again. Dr. Negron back to room. Estefany Dunlap RN 12/22/22 0841 [facility] HospitalLjdiak83-33-9446 NoteED medic to room to start IV/obtain labs per orders after physician spoke with pt at length about plan of care. Pt questioning medic why we are doing bloodwork and wants to speak with Dr. Negron again. Dr. Negron back to room. Estefany Dunlap RN 12/22/22 0841[facility]10-28-2023 Emergency department Triage note * Estefany [...] PerEPIC the pt placed calls to the office/[facility] stating he needed IV abx specifically but was advised this is not indicated for negative UA. He then saw Dr. Basilio in [place] yesterday and had another UA as well as outpatient US and Xray. UA yesterday was again negative but was sent for culture. Outpatient imaging was all negative as well. Pt was prescribed Cipro in spite of negative results. Pt states his c/o are falling on deaf ears. He reports having chills and sweats this morning. Hestates he called the [facility] today and was told by the nurse to come to the ED to get a CT scan. Pt is concerned that he is having DVT surgery Saturday and that if he has an infection it will cause issueswith his procedure. Pt is A&Ox3, respirations even and unlabored, skin warm and dry, no s/s of distress noted. Pt negative/irritable during triage. [facility] HospitalOhjkma06-82-3568 Physician Emergency department Note* Pacheco Negron MD [...] culture pending KUB and ultrasound unremarkable per [facility]. Patient is concerned that he [...] gland and craniopharyngeal duct (pouch) ([facility]) Chest pain, unspecified Chills 05/28/2022 Chronic flank pain Chronic pain Diverticulitis DVT (deep venous thrombosis) ([facility]) 2022 left leg Esophageal reflux Essential [...] Culture. Procedure Abnormality Status --------- ------ Complete Urinalysis[[id number]] Normal Final result Please view results for [...] determinants of health affecting care: Distrust of [facility] and his PCP ED Medications managed: [...] AM PATIENT REFERRED TO: Cheryl Basilio MD [address] [place] [address] [address] [place] [address] In 2 days DISCHARGE MEDICATIONS: New Prescriptions [...] Medicine Provider Pacheco Negron MD 12/22/22 1251 [facility] HospitalGflvlb39-63-7082 Telephone encounter Note* Telephone Encounter - Farzana [...] Patient verbalizes understanding. States will go to [place] ED because has not had luck at [place]. Instructed to call back with any further questions or concerns. Reason for Disposition [1] Abdominal pain AND [2] age > 60 years Protocols used: Flank Jtjr-RFZFS-TQ [facility] HospitalJxbxth69-78-6104 Miscellaneous Notes* Telephone Encounter - Farzana Samaniego [...] Patient verbalizes understanding. States will go to [place] ED because has not had luck at [place]. Instructed to call back with any further questions or concerns. Reason for Disposition [1] Abdominal pain AND [2] age > 60 years Protocols used: Flank Sjzl-NBATD-NP documented in this encounterSRegional Medical CenterMyosad51-35-5396 Telephone encounter Note* Telephone Encounter - Tayler Simpson MA - 12/18/2022 8:40 AM EDT Mychart message sent [place] [address]Dgivfr39-00-2905 Miscellaneous Notes* Telephone Encounter - Tayler Simspon MA - 12/18/2022 8:40 AM EDT [employer] message sent * Telephone Encounter - Cheryl Basilio MD - 12/18/2022 7:33 AM EDT Please schedule visit to discuss. Thanks * Telephone Encounter - Dat Talobt RN - 12/17/2022 3:07 PM EDT S: [...] having fixed before then. documented in this encounterSRegional Medical CenterOkfebw29-70-5943 Telephone encounter Note* Telephone Encounter - Cheryl Basilio MD - 12/18/2022 7:33 AM EDT Please schedule visit to discuss. Thanks [facility] HospitalNjdcdi62-51-1247 Telephone encounter Note* Telephone Encounter - Dat [...] call back with new or worsening symptoms. [facility] Elthaz09-27-4580 Miscellaneous Notes* Telephone Encounter - Dat Talbot [...] having fixed before then. documented in this encounterSRegional Medical CenterXggymt58-56-0092 Telephone encounter Note* Telephone Encounter - Dat Talbot RN - 12/17/2022 2:57 PM EDT . Reason for Disposition MODERATE pain (e.g., interferes with normal activities or awakens from sleep) Protocols used: Flank Iayx-QGYXS-AQ [facility] HospitalOahkpl91-89-2715 Miscellaneous Notes* Telephone Encounter - Dat Talbot RN - 12/17/2022 2:57 PM EDT . Reason for Disposition MODERATE pain (e.g., interferes with normal activities or awakens from sleep) Protocols used: Flank Iupy-NEJAG-JQ documented in this encounterSRegional Medical CenterIirupt05-11-2239 Telephone encounter Note* Telephone Encounter - Mary Garcia MA - 12/17/2022 9:13 AM EDT Notified Corrie. [facility] HospitalCrrblz46-36-5187 Telephone encounter Note* Telephone Encounter - Leanne [...] else to offer him at this time. [facility] HospitalYaonlg81-59-2774 Telephone encounter Note* Telephone Encounter - Mary Garcia MA - 12/17/2022 8:02 AM EDT Pt reported that he was scheduled with urology last week but missed the appointment d/t needing to be seen for the blood clot. Advised him we need to get him in with urology chance after his surgery. UA results on your desk and order pended. [facility] HospitalAjumcr59-75-1935 Telephone encounter Note* Telephone Encounter - Sierra [...] issue he is having fixed before then. [facility] Jobs2WebSajmbu26-59-1894 NotePatient: Corrie Queen Procedure Information Date/Time: 12/25/22 1030 Procedures: LEFT ILIOFEMORAL DEEP VEIN THROMBOSIS, THROMBECTOMY AND STENTING (Left) TRANSCATHETER PLACEMENT OF AN INTRAVASCULAR STENT(S), OPEN OR PERCUTANEOUS INITIAL VEIN (Left) Location: [facility] Operating Room Surgeons: Ziggy Arauz MD Past [...] gland and craniopharyngeal duct (pouch) ([facility]) No date: Chest pain, unspecified 05/28/2022: Chills No date: Diverticulitis 2022: DVT (deep venous thrombosis) ([facility]) Comment: left leg No date: Esophageal [...] SCAN (Final) Narrative Ordered by an unspecified provider.[facility]10-19-2023 Note Comprehensive Pre Surgical History and Physical ? Name: Corrie Queen : 1960 (Age-62 y.o.) Date of Service: Pt seen/examined on 12/13/2022 Procedure Information Date/Time: 12/25/22 1030 Procedures: LEFT ILIOFEMORAL DEEP VEIN THROMBOSIS, THROMBECTOMY AND STENTING (Left) TRANSCATHETER PLACEMENT OF AN INTRAVASCULAR STENT(S), OPEN OR PERCUTANEOUS INITIAL VEIN (Left) Location: [facility] Operating Room Surgeons: Ziggy Arauz MD Chief [...] who we are asked to see/evaluate by [facility] 02 for pre-operative evaluation prior to . LEFT ILIOFEMORAL DEEP VEIN THROMBOSIS, THROMBECTOMY AND STENTING (Left) [80926 CPT(R)] TRANSCATHETER PLACEMENT OF AN INTRAVASCULAR STENT(S), OPEN OR PERCUTANEOUS INITIAL VEIN (Left) [99540 CPT(R)] Anesthesia type: General The patient is [...] for attempted left lois (more content not included)...[facility]10[facility]20[facility] Note Comprehensive Pre Surgical History and Physical ? Name: Corrie Queen : 1960 (Age-62 y.o.) Date of Service: Pt seen/examined on 12/13/2022 Procedure Information Date/Time: 12/25/22 1030 Procedures: LEFT ILIOFEMORAL DEEP VEIN THROMBOSIS, THROMBECTOMY AND STENTING (Left) TRANSCATHETER PLACEMENT OF AN INTRAVASCULAR STENT(S), OPEN OR PERCUTANEOUS INITIAL VEIN (Left) Location: [facility] Operating Room Surgeons: Ziggy Arauz MD Chief [...] DEEP VEIN THROMBOSIS, THROMBECTOMY AND STENTING (Left) [50101 CPT(R)] TRANSCATHETER PLACEMENT OF AN INTRAVASCULAR STENT(S), OPEN OR PERCUTANEOUS INITIAL VEIN (Left) [87816 CPT(R)] Anesthesia type: General The patient is [...] attempted left lois (more content not included)...[facility] [id number] Hospital Discharge instructions* Discharge Instructions* Kendra Sauer [...] (Blood Clots in the Legs) Discharge Instructions ([place] Citizen) documented in this [facility]10-13-20[facility] Emergency department Note* Lorena Castillo RN - 12/07/2022 2:23 PM EDT Surgery resident at bedside. Lorena Castillo RN 12/07/22 1423 [facility] HospitalCtikoz16-11-3225 Emergency department Note* Lorena Castillo RN - [...] 12/07/2022 9:15 AM EDT Emergency Department Encounter [facility] EMERGENCY DEPT Patient: Corrie Queen : 1960 [...] [employer] Yolanda Patel DO 12/07/22 1803 * Munira Mcgregor RN - 12/07/2022 9:15 AM EDT Bed: 06 Expected date: Expected time: Means of arrival: Comments: Triage Munira Mcgregor RN 12/07/22 0931 documented in this [facility]10-13-2023 NoteVascular Surgery Consultation Note Reason for Consult: LLE DVT HISTORY OF PRESENT ILLNESS: The patient is a 62 y.o. male with past medical history of pituitary gland tumor, who presents to [facility] for an ongoing LLE DVT. Vascular surgery [...] a dose. Patient reports he was in [place] on 12/04 when he experienced an exacerbation [...] for Saturday 2:15pm with Dr Arauz in [place] for possible discussion about thrombectomy Past Medical [...] Housing Stability: Unknown (09/25 (more content not included)...[facility]10[facility] Emergency department Note* Lorena Castillo RN - 12/07/2022 1:33 PM EDT Vascular at bedside. Lorena Castillo RN 12/07/22 1333 [facility] HospitalYidwus34-10-9014 Emergency department Note* Lorena Castillo RN - 12/07/2022 1:18 PM EDT Pt ambulated to restroom with steady and even gait. Lorena Castillo RN 12/07/22 1319 [facility] HospitalVmfeqv36-81-9432 Emergency department Note* Lorena Castillo RN - 12/07/2022 1:11 PM EDT Report from GARY Becerril. Lorena Castillo RN 12/07/22 1311 [address]dxjg99-70-8249 Emergency department Note* Munira Mcgregor RN - 12/07/2022 9:15 AM EDT Bed: 06 Expected date: Expected time: Means of arrival: Comments: Triage Munira Mcgregor RN 12/07/22 8101 [address]Hquulg68-76-0178 Physician Emergency department Note* Yolanda Patel DO - 12/07/2022 9:15 AM EDT Emergency Department Encounter [facility] EMERGENCY DEPT Patient: Corrie Queen : 1960 [...] [employer] Yolanda Patel DO 12/07/22 180 [employer] Phone: 1(388) 552-987909-21-2023 History of Present illness Narrative* Cheryl Basilio MD - 11/15/2022 2:51 PM EDT [employer] documented in this encounterSRegional Medical CenterBvynab77-85-3825 Telephone encounter Note* Telephone Encounter - Farzana [...] one leg Protocols used: Leg Swelling and Uamxn-MCNBA-OW [facility] HospitalIpment05-46-7864 Telephone encounter Note* Telephone Encounter - Arjun Velarde MA - 11/15/2022 2:10 PM EDT Duplicate message, there is already 2 other encounters in regards to this. Pt will get results oncethey are reviewed by provider. [facility] HospitalPnvpdl42-92-4419 Miscellaneous Notes* Telephone Encounter - Farzana Samaniego [...] one leg Protocols used: Leg Swelling and Yzqcb-URJRV-TT * Telephone Encounter - Arjun Velarde MA - 11/15/2022 2:10 PM EDT Duplicate message, there is already 2 other encounters in regards to this. Pt will get results oncethey are reviewed by provider. * Telephone Encounter - Dat Talbot RN - 11/15/2022 1:53 PM EDT S: Patient spoke with [facility] nurse regarding US results B: 11/14/22 US bilateral lower extremities A: Patient would like the results of his US done yesterday. Patient very upset that nobody has callhim. R: Call patient with results. Reason for Disposition Nursing judgment Protocols used: Information Only Call - No Bxvket-NRQSG-JA documented in this [facility]09-[facility]-2023 Telephone encounter Note* Telephone Encounter - Farzana Samaniego RN - 11/15/2022 2:09 PM EDT Duplicate call Reason for Disposition Caller has already spoken with another triager and has no further questions Protocols used: No Contact or Duplicate Contact Eqmg-WTPZO-TX [facility] HospitalHotxlo33-57-2284 Miscellaneous Notes* Telephone Encounter - Farzana Samaniego RN - 11/15/2022 2:09 PM EDT Duplicate call Reason for Disposition Caller has already spoken with another triager and has no further questions Protocols used: No Contact or Duplicate Contact Ozah-HTOOF-EU documented in this encounterSRegional Medical CenterBjiuzb53-60-8193 Telephone encounter Note* Telephone Encounter - Dat [...] Protocols used: Information Only Call - No Luxinz-AOPAP-YW [facility] HospitalUdartl91-04-2022 Miscellaneous Notes* Telephone Encounter - Shannan Rodriguez - 11/15/2022 10:19 AM EDT Name of caller: Corrie Contact phone number: [phone] Relationship to Patient: patient Provider: Kj Practice: [...] return their call: Yes documented in this encounterSRegional Medical CenterQnvjvd12-08-4055 Telephone encounter Note* Telephone Encounter - Shannan Rodriguez - 11/15/2022 10:19 AM EDT Name of caller: Corrie Contact phone number: [phone] Relationship to Patient: patient Provider: Kj Practice: [...] business hours to return their call: Yes [facility] HospitalUzmjir66-11-0720 Telephone encounter Note* Telephone Encounter - Nubia [...] call back with new or worsening symptoms. [facility] HospitalRnkrrd28-84-5420 Miscellaneous Notes* Telephone Encounter - Nubia Gallo [...] Protocols used: Information Only Call - No Awwzds-CJDRP-RU documented in this [facility]09-20-2023 Telephone encounter Note* Telephone Encounter - Natacha [...] Protocols used: Information Only Call - No Mdjxqe-FTJSE-RX [facility] HospitalNnpzwp55-66-5673 History of Present illness Narrative* Cheryl Basilio MD - 11/14/2022 11:00 AM EDT Images from the original note were not included. [facility] [address] [facility] [address] Dept: [phone] Dept Loc: [phone] Visit type: Established patient Reason for Visit: [...] alert. Cheryl Basilio MD documented in this [facility]09-20-2023 Instructions* Patient Instructions* Cheryl Basilio MD - 11/14/2022 11:00 AM EDT The number for [facility] Central Scheduling is [phone]. documented in this [facility]09-19-2023 Telephone encounter Note* Telephone Encounter [...] period? N/A Protocols used: Leg Swelling and Tygiy-EQDPI-LK [facility] HospitalPudotz74-83-8337 Miscellaneous Notes* Telephone Encounter - Khalida Currie [...] period? N/A Protocols used: Leg Swelling and Dkonr-TAPFO-MH documented in this encounterSRegional Medical CenterYgrvtb93-83-2820 Telephone encounter Note* Telephone Encounter - Cheryl Basilio MD - 10/31/2022 9:28 PM EDT Ordered. Thanks [facility] HospitalSqbyzp17-92-6281 Miscellaneous Notes* Telephone Encounter - Cheryl Basilio MD - 10/31/2022 9:28 PM EDT Ordered. Thanks * Telephone Encounter - Mitzy Gipsonyer - 10/31/2022 10:54 AM EDT Ordering provider: Dr. Basilio Date of last office visit: 10/24/22 Date of next office visit: N/A Updated/Validated preferred pharmacy: Yes [id number] [phone] Patient instructed to contact the pharmacy prior [...] tab): 08/22/22 last written documented in this [facility]09-06-2023 Telephone encounter Note* Telephone Encounter - Mitzy Velez - 10/31/2022 10:54 AM EDT Ordering provider: Dr. Basilio Date of last office visit: 10/24/22 Date of next office visit: N/A Updated/Validated preferred pharmacy: Yes [id number] [phone] Patient instructed to contact the pharmacy prior [...] refill (see medication tab): 08/22/22 last written [facility] HospitalHcoxal18-40-4063 Miscellaneous Notes* Care Coordination - Unknown Case Management - 10/16/2022 4:01 PM EDT Patient Choice Patient Name: CORRIE QUEEN Date of : 1960 All Providers Sent Referral Name: Physician [facility], [employer] Address: [facility] Anali Willis, [address] [address] Name: [facility] Address: [address] [place] [address] Name: [facility] [employer] Phone: [phone] Address: [address] [place] [address] [address] [place] [address] Name: [facility] [employer] Phone: [phone] Address: [address] [place] [address] Name: [facility] [employer] Phone: [phone] Address: [address] [place] [address] Name: [facility] Phone: [phone] Address: [address] [place] [address] Name: [facility] Phone: [phone] Address: [address] [place] [address] Name: [facility] [place] (All Offices) Phone: [phone] Address: [address] [place] [address] Name: [facility] Phone: [phone] Address: [address] [place] [address] Name: [facility] [place] Phone: [phone] Address: [address] [place] [address] [address] Name: [facility] Phone: [phone] Address: [address] [place] [address] Name: [facility] Centralized Intake Phone: [phone] Address: [address] [place] [address] Name: [facility] Phone: [phone] Address: [address] [facility],[address] [place] [address] * Home Care - Brian Chanel RN [...] service location. Referrals have been sent via [facility]. Liaison to discuss available agencies to [...] included. Care Management Progress Note Spoke with [facility] specialty pharmacy yesterday afternoon. They are [...] 3-7. [facility]. Will monitor therapy [...] Did call and speak with Xiomara from [facility] specialty pharmacy and requested that PA be initiated onxarelto. She will contact [facility] once obtained. Updated attending of this. * Care Coordination - Natacha Deluna RN - 10/15/2022 9:34 AM EDT Per meds to beds xarelto will require PA [phone]. * Care Coordination - Natacha Deluna RN - 10/15/2022 6:33 AM EDT Images from the original note were not included. Care Management Progress Note Family [facility] Awaiting call from meds to [...] new script for 30 day supply to [facility] in [place]. Called and spoke with pharmacist at [facility] and 30 day script has already been [...] 3:56 PM EDT Called [facility] in [place]. Xarelto script does require PA. Had pharmacist run without insurance and only use FREE 30 day copay card and was able to go through with no cost. Returned to patient's room. Met with he and his daughter Isa. Apologized for earlier misunderstanding. Explained thathad spoken to [facility] in [place] and his xarelto had gone through with [...] Patient and daughter requesting to speak with billing department supervisor about separate incident. Mycology Teacher updated. Discharge plan is home when medically stable. * Care Coordination - Natacha Deluna RN - 10/13/2022 3:50 PM EDT Care Managment Initial Assessment Date: 10/13/2022 Patient Name: Corrie Queen : 1960 Patient Information Source of Information: Patient Name/Contact Information: ISA HENSLEY [phone] DAUGHTER MAURY QUEEN DAUGHTER [phone] Cognition/Language: WFL - Within Functional Limits Permission given to speak with patient outside sales representative insurance/caregiver as indicated: Yes Confirmation of Payer with [...] Daily Living Prescription Coverage: Yes Pharmacy Used: [facility] [place] Medication Management: Independent Transportation/Shopping: Independent Transportation Mode: [...] consulted. Daily labs. Spoke with attending via [email or web address] chat and wanted to know costs of [...] stated we were no different here from [facility] and he wanted to speak [...] today for complete details. documented in this [place] [address]-22-2023 Note* Care Coordination - Unknown Case Management - 10/16/2022 4:01 PM EDT Patient Choice Patient Name: CORRIE QUEEN Date of : 1960 All Providers Sent Referral Name: Physician [facility], [facility] Address: [facility] Anali Willis, [address] [address] Name: [facility] Address: [address] [place] [address] Name: [facility] [employer] Phone: [phone] Address: [address] [place], [place] [address] [place] [address] Name: [employer] [employer] Phone: [phone] Address: [address] [place] [address] Name: [employer] Phone: [phone] Address: [address] [place] [address] Name: [facility] Phone: [phone] Address: [address] [place] [address] Name: [facility] Phone: [phone] Address: [address] [place] [address] Name: [facility] (All Offices) Phone: [phone] Address: [address] [address] Name: [facility] Phone: [phone] Address: [address] [place] [address] Name: [facility] [place] Phone: [phone] Address: [address] [place] [address] [address] Name: [facility] Phone: [phone] Address: [facility] [place] [address] Name: [facility] Centralized Intake Phone: [phone] Address: [address] [place] [address] Name: [facility] Phone: [phone] Address: [address] [place], [place] [address] [address] StreetGarusp06-36-7702 Note* Home Care - Brian Chanel RN - 10/16/2022 4:01 PM EDT Discussed with patient the accepting agencies for home care. The patient states that he was given aprescription from the pharmacy for insulin and is so upset right now that he doesn't even want the home care any longer. Notified the agencies. Referral is close out. Home care to sign off. [address] StreetHnxkqu60-36-9245 Note* Care Coordination - Unknown Case Management - 10/16/2022 4:01 PM EDT Patient Choice Patient Name: CORRIE QUEEN Date of : 1960 All Providers Sent Referral Name: [facility], [facility] Address: [facility] Anali [address] [address] Name: [facility] Address: [address] [place] [address] Name: [facility] Phone: [phone] Address: [address] [place] [address] [address] [place] [address] Name: [facility] Phone: [phone] Address: [address] [place] [address] Name: [facility] Phone: [phone] Address: [address] [place] [address] Name: [facility] Phone: [phone] Address: [address] [place] [address] Name: [facility] Phone: [phone] Address: [address] [place] [address] Name: [facility] [place] (All Offices) Phone: [phone] Address: [address] [place] [address] Name: [facility] Phone: [phone] Address: [address] [place] [address] Name: [facility] [place] Phone: [phone] Address: [address] [place] [address] [address] Name: [facility] Phone: [phone] Address: [address] [place] [address] Name: [facility] Centralized Intake Phone: [phone] Address: [address] [facility] [place] [address] Name: [facility] Phone: [phone] Address: [address] [facility],[address] [place] [address] [facility] Rmlsyu69-96-6781 Note* Home Care - Brian Chanel RN - 10/16/2022 4:01 PM EDT Discussed with patient the accepting agencies for home care. The patient states that he was given aprescription from the pharmacy for insulin and is so upset right now that he doesn't even want the home care any longer. Notified the agencies. Referral is close out. Home care to sign off. [facility] HospitalLprset26-34-5997 Nurse Note* Nasra Bass RN - 10/16/2022 3:31 PM EDT Discharge instructions reviewed with patient. New prescriptions, follow up appointments and signs and symptoms also reviewed. Patient ambulated from unit with a friend. Patient to pickling machine operator prescriptions at hospital pharmacy. [facility] HospitalTaalgy17-40-1413 Nurse Note* Nasra Bass RN - 10/16/2022 3:31 PM EDT Discharge instructions reviewed with patient. New prescriptions, follow up appointments and signs and symptoms also reviewed. Patient ambulated from unit with a friend. Patient to pickling machine operator prescriptions at hospital pharmacy. documented in this [place] [address]-22-2023 Hospital Discharge instructions* Discharge Instr - Activity* Nasra Bass RN - 10/16/2022 3:21 PM EDT As tolerated * Appointments* Natacha Deluna RN - 10/16/2022 6:58 AM EDT BUNCH BREAKER MACHINE OPERATOR SPOKE WITH TAYLER AT DR. BASILIO'S OFFICE ABOUT PRIOR AUTHORIZATION NEEDED FOR YOUR REFILLS FOR XARELTO. SHE WILL INITIATE THIS. SHE WILL CONTACT YOU IF THERE ARE ANY PROBLEMS. * Attachments The following attachments cannot be sent through Care Everywhere. * Deep Vein Thrombosis (Blood Clots in the Legs) Discharge Instructions ([place] Citizen) * Going Home on Blood Thinners ([place] Citizen) documented in this [place] [address]-22-2023 Note* Home Care - Brian Chanel RN - 10/16/2022 3:17 PM EDT Educated patient on Home Care and services available. Patient is agreeable to receiving home care services at this time. Patient was given choice of home care agencies available in the area and is agreeable to having referrals made with agencies that staff the patients service location. Referrals have been sent via [employer]. Liaison to discuss available agencies to accept case with patient upon receiving responses. [facility] HospitalMtcaxe94-27-5813 Note* Home Care - Brian Chanel RN - 10/16/2022 3:17 PM EDT Educated patient on Home Care and services available. Patient is agreeable to receiving home care services at this time. Patient was given choice of home care agencies available in the area and is agreeable to having referrals made with agencies that staff the patients service location. Referrals have been sent via [employer]. Liaison to discuss available agencies to accept case with patient upon receiving responses. [facility] HospitalWgjnju18-38-0654 Hospital course Narrative* Tamara Turcios MD - [...] Your Medications These medications were sent to [facility] [address] [place] [address] Hours: Saturday to Saturday 10 am to 6 pm polyethylene glycol (PEG) 3350 17 g packet rivaroxaban 20 MG tablet senna-docusate sodium 8.6-50 MG tablet tamsulosin 0.4 MG 24 hr capsule DIET: Adult diet Regular ACTIVITY: No restriction. COMPLEXITY OF FOLLOW UP: [x] Moderate Complexity: follow up within 7-14 calendar days (04702) [] Severe Complexity: follow up within 7 calendar days (54000) FOLLOW UP TESTING, PENDING RESULTS OR REFERRALS AT TRANSITIONAL CARE VISIT: [] Yes [x] No PENDING STUDIES: none DISPOSITION: Home FACILITY/HOME CARE AGENCY NAME: Follow up with Cheryl Basilio MD [address] [place] [address] [address] [facility] [address] Schedule an appointment as soon as possible [...] MD 10/16/2022, 2:01 PM documented in this [facility]08-22-[facility] History of Present illness Narrative* Tamara Turcios MD - 10/16/2022 12:07 PM EDT Images from the original note were not included. Hospitalist Progress Note 10/16/2022 [id number]: Please secure chat me on patient care issues. [phone]: Please secure chat [facility] Hospitalist for any issues. Subjective: Admit Date: 10/12/2022 PCP: Cheryl Basilio MD Room#: B4-336/B4-671 A CHIEF COMPLAINT: DVT left LLE Interval History: No overnight issues. Denies chest pain, sob, abdominal pain, nausea, vomiting, diarrhea, constipation, fevers, or chills. Adult diet Regular @KXPL5GOOEDB@ 24HR INTAKE/OUTPUT: No intake or output data [...] Emergency Contact: Maury Queen Mobile Relation: Child Staking Technician needed? No Secondary Emergency Contact: Isa Jiang Mobile Relation: Other Tamara Turcios MD Division of Hospitalist Medicine [facility] PAGER: Epic chat * Percy De La Rosa, PT - 10/16/2022 9:52 AM EDT Physical Therapy Facility/Department: [facility] Physical Therapy Initial Evaluation NAME: Corrie [...] Medium Complexity History: extensive LLE DVT Exam: [facility] Clinical Presentation: Pt admitted 10/12 with LLE [...] 12:50 PM EDT Hospitalist Progress Note 10/15/2022 [phone]: Please secure chat me for patient care issues. [phone]: Please secure chat [facility] Hospitalist for any issues. Subjective: Admit Date: 10/12/2022 PCP: Leanne Perales MD Room#: B4450/V7-034 A Interval History: Sudden onset of severe EARLY and blurry vision. No limb weakness. He denies chest pain, sob, abdominal pain, nausea, vomiting, diarrhea, fevers, or chills. Tolerating diet. Still no good bowel movement yet. D/w pt and family at bedside and RN separately. D/w Danelle, GRAVEL INSPECTOR RN separately also. Adult diet Regular @XBGI3PEPPIQ@ 24HR INTAKE/OUTPUT: Intake/Output Summary (Last 24 hours) [...] Emergency Contact: Maury Queen Mobile Relation: Child Staking Technician needed? No Secondary Emergency Contact: Isa Jiang Mobile Relation: Other BHASKAR REYES MD Division of Hospitalist Medicine [facility] PAGER: Epic chat * Bhaskar Reyes MD - 10/14/2022 1:26 PM EDT Images from the original note were not included. Hospitalist Progress Note 10/14/[phone]: Please secure chat me for patient care issues. : Please secure chat [facility] Hospitalist for any issues. Subjective: Admit Date: 10/12/2022 PCP: Leanne Perales MD Room#: B4-390/B4-492 A Interval History: Constipated. LLE with continued pain and swelling. Some difficulty ambulating. Hedenies chest pain, sob, abdominal pain, nausea, vomiting, diarrhea, fevers, or chills. Tolerating diet. D/w pt and RN at bedside. D/w Dr Cooper separately via secure chat. Adult diet Regular @[id number]@ 24HR INTAKE/OUTPUT: Intake/Output Summary (Last 24 hours) [...] Primary Emergency Contact: EvangelistMaury Mobile Relation: Child Staking Technician needed? No Secondary Emergency Contact: Isa Jiang Mobile Relation: Other BHASKAR REYES MD Division of Hospitalist Medicine Acute care [facility] PAGER: Epic chat * Tegan Murry - 10/14/2022 9:14 AM EDT Nutrition rescreen completed. Patient assigned a level 1. documented in this [facility] Note* Care Coordination - Natacha [...] nurse of this. [facility] with no assistive devices required. [facility] HospitalQoakaz44-99-3014 Note* Care Coordination - Natacha Deluna RN [...] nurse of this. [facility] with no assistive devices required. [facility] HospitalZlwsdy34-45-0420 Note* Care Coordination - Natacha Deluna RN - 10/16/2022 6:45 AM EDT Images from the original note were not included. Care Management Progress Note Spoke with [facility] yesterday afternoon. They are [...] of Stay (Days): 4 GMLOS: 3.0 . [facility] HospitalUlniuz37-52-8558 Note* Care Coordination - Natacha Deluna RN - 10/16/2022 6:45 AM EDT Images from the original note were not included. Care Management Progress Note Spoke with [facility] yesterday afternoon. They are [...] of Stay (Days): 4 GMLOS: 3.0 . [facility] HospitalXfxxyi50-11-9001 History of Present illness Narrative* Anel Rubin LPN - 10/15/2022 10:31 PM EDT Chart reviewed of ED follow up Seen in [facility] ED on 10/12/22 Reason: leg pain Discharge instructions: Asked Dr. Perales about renewing your anticoagulation medicine and how long you will need to be on the medicine. PATIENT REFERRED TO: Leanne Perales MD [address] [place] [address] [place] [phone] In 1 week Pt admitted to [facility] 4S Telemetryfor complaint of leg pain. Admitting DX was acute deep vein thrombosis of left lower extremity and ambulatory dysfunction.. * Anel Rubin LPN - 10/15/2022 10:31 PM EDT Was notified per Dr. Bruce office that patient no longer follows Dr. Perales, he follows Dr. Cheryl Basilio. documented in this [facility] Note* Care Coordination - LEIGH Goldstein - 10/15/2022 3:19 PM EDT S/W, follow up TCC did message that Dr. Gray office will do the prior auth on Xarelto. [facility] HospitalAejylo05-59-9417 Note* Care Coordination - LEIGH Goldstein - 10/15/2022 3:19 PM EDT S/W, follow up TCC did message that Dr. Gray office will do the prior auth on Xarelto. [facility] HospitalCcakrr92-71-3521 Note* Rapid Response Note - Danelle Louis [...] lovenox. Dr Reyes orders a head CT [facility] HospitalVvzoad96-68-1187 Note* Rapid Response Note - Danelle Louis [...] lovenox. Dr Reyes orders a head CT [facility] HospitalRtxttg72-95-5109 Note* Care Coordination - Natacha Deluna RN - 10/15/2022 12:34 PM EDT Did call and speak with Xiomara from [facility] pharmacy and requested that PA be initiated onxarelto. She will contact [facility] once obtained. Updated attending of this. [facility] HospitalSwdrir89-66-0608 Note* Care Coordination - Natacha Deluna RN - 10/15/2022 12:34 PM EDT Did call and speak with Xiomara from [facility] and requested that PA be initiated onxarelto. She will contact [facility] once obtained. Updated attending of this. [place] [address]Zkltcm39-88-9587 Note* Care Coordination - Natacha Deluna RN - 10/15/2022 9:34 AM EDT Per meds to beds xarelto will require PA [phone]. [facility] HospitalVywyfp49-61-7725 Note* Care Coordination - Natacha Deluna RN - 10/15/2022 9:34 AM EDT Per meds to beds xarelto will require PA [phone]. [facility] HospitalBcyscu50-88-9091 Note* Care Coordination - Natacha Deluna RN - 10/15/2022 6:33 AM EDT Images from the original note were not included. Care Management Progress Note Family picked up first 30 days worth of xarelto from [facility](free with coupon). Awaiting call from meds [...] Stay (Days): 3 GMLOS: No GMLOS Documented [facility] HospitalAskfdd10-04-4064 Note* Care Coordination - Natacha Deluna RN - 10/15/2022 6:33 AM EDT Images from the original note were not included. Care Management Progress Note Family picked up first 30 days worth of xarelto from [facility] in [place](free with coupon). Awaiting call from meds to [...] Stay (Days): 3 GMLOS: No GMLOS Documented [facility] Vxpafd62-76-0992 Note* Care Coordination - Natacha Deluna RN - 10/14/2022 4:53 PM EDT Did epic chat Dr. Reyes regarding xarelto script sent from ER only being for 10 day supply. He sent over new script for 30 day supply to [facility] in [place]. Called and spoke with pharmacist at [facility] and 30 day script has already been picked up by patient's brother in law and 10 day script was cancelled. Patient did not accrue any charge for his 30 day script. . [facility] Kbysgr28-02-9012 Note* Care Coordination - Natacha Deluna RN - 10/14/2022 4:53 PM EDT Did epic chat Dr. Reyes regarding xarelto script sent from ER only being for 10 day supply. He sent over new script for 30 day supply to [facility] in [place]. Called and spoke with pharmacist at [facility] and 30 day script has already been picked up by patient's brother in law and 10 day script was cancelled. Patient did not accrue any charge for his 30 day script. . [facility] HospitalBgttue55-34-8789 Plan of care note* Care Plan - [...] as tolerate. Patient given warm prune juice. [facility] HospitalVxkapd93-68-7013 Consult note* Juan José Obando MD - 10/14/2022 10:55 AM EDT Images from the original note were not included. Juan José Cooper MD [facility] Hematology/Oncology - [facility] [address] [address] Dept: [phone] Dept PROBLEM LIST: 1.LLE DVT (provoked) -10/12/22 [...] etc). Pt requests to be seen at [facility] so I have our office arrange [...] patient was diagnosed with a DVT at [place] emergency room and sent home with Xarelto. However he cannot afford the co-pay and went back to the emergency room at [place] before beingadmitted to [place]. Also of note, the patient was admitted from September 17 through September 23, 2022 with multidrug-resistant UTI/right pyelonephritis. He was prescribed a course of IV antibiotics to be completed on September 26, [address] to [place] and back , returning just about 1 [...] No fever, chills, night sweats, weight loss SOFTWARE CLIENT ARCHITECT: No blurry vision , headaches, focal neurologic [...] recognition and may contain minor errors in charging operator. Attending Attestation Note: I have personally performed a face to face diagnostic evaluation on this patient on 10/14/22 . I spent the 75 min visit with patient , discussing case w/ primary MD, counseling patient/documenting and coordinating care regarding diagnosis, workup/testing, treatment as well as answering questions. Juan José Cooper MD [facility] [employer] Phone: 1(278) 139-761108-20-2023 Consult note* Juan José Obando MD - 10/14/2022 10:55 AM EDT Images from the original note were not included. Juan José Cooper MD [facility] Hematology/Oncology - [facility] [address] [place] [id number] Dept: [phone] Dept PROBLEM LIST: 1.LLE DVT (provoked) -10/12/22 [...] etc). Pt requests to be seen at [facility] so I have our office arrange [...] patient was diagnosed with a DVT at [place] emergency room and sent home with Skyrelto. However he cannot afford the co-pay and went back to the emergency room at [place] before beingadmitted to [place]. Also of note, the patient was admitted from September 17 through September 23, 2022 with multidrug-resistant UTI/right pyelonephritis. He was prescribed a course of IV antibiotics to be completed on September 26, [address] to [place] and back , returning just about 1 [...] No fever, chills, night sweats, weight loss SOFTWARE CLIENT ARCHITECT: No blurry vision , headaches, focal neurologic [...] recognition and may contain minor errors in charging operator. Attending Attestation Note: I have personally performed a face to face diagnostic evaluation on this patient on 10/14/22 . I spent the 75 min visit with patient , discussing case w/ primary MD, counseling patient/documenting and coordinating care regarding diagnosis, workup/testing, treatment as well as answering questions. Juan José Cooper MD documented in this [facility]08-19-2023 Plan of care note* Care Plan - [...] After rest , color and pain improves. [facility] HospitalIvbydn19-90-5510 Note* Care Coordination - Natacha Deluna RN - 10/13/2022 3:56 PM EDT Called [facility] in [place]. Xarelto script does require PA. Had pharmacist run without insurance and only use FREE 30 day copay card and was able to go through with no cost. Returned to patient's room. Met with he and his daughter Isa. Apologized for earlier misunderstanding. Explained thathad spoken to [facility] in [place] and his xarelto had gone through with [...] Patient and daughter requesting to speak with billing department supervisor about separate incident. Mycology Teacher updated. Discharge plan is home when medically stable. [facility] HospitalLnmbvg36-56-6395 Note* Care Coordination - Natacha Deluna RN - 10/13/2022 3:56 PM EDT Called [facility] in [place]. Xarelto script does require PA. Had pharmacist run without insurance and only use FREE 30 day copay card and was able to go through with no cost. Returned to patient's room. Met with he and his daughter Isa. Apologized for earlier misunderstanding. Explained thathad spoken to [facility] in [place] and his xarelto had gone through with [...] Patient and daughter requesting to speak with billing department supervisor about separate incident. Mycology Teacher updated. Discharge plan is home when medically stable. [facility] HospitalKneabu03-33-2877 Note* Care Coordination - Natacha Deluna RN - 10/13/2022 3:50 PM EDT Care Managment Initial Assessment Date: 10/13/2022 Patient Name: Corrie Queen : 1960 Patient Information Source of Information: Patient Name/Contact Information: ISA HENSLEY [phone] DAUGHTER MAURY QUEEN DAUGHTER [phone] Cognition/Language: WFL - Within Functional Limits Permission given to speak with patient outside sales representative insurance/caregiver as indicated: Yes Confirmation of Payer with [...] Coverage: Yes Pharmacy Used: [facility] [place] Medication Management: Independent Transportation/Shopping: Independent Transportation Mode: [...] consulted. Daily labs. Spoke with attending via [email or web address] chat and wanted to know costs of [...] stated we were no different here from [facility] and he wanted to speak with the doctor. He threw off his blankets and stated he was out of here. Did update primary care nurse and attending... Natacha Deluna RN [facility] HospitalOukdqy99-25-0144 Note* Care Coordination - Natacha Deluna RN - 10/13/2022 3:50 PM EDT Care Managment Initial Assessment Date: 10/13/2022 Patient Name: Corrie Queen : 1960 Patient Information Source of Information: Patient Name/Contact Information: ISA HENSLEY [phone] DAUGHTER MAURY QUEEN DAUGHTER [phone] Cognition/Language: WFL - Within Functional Limits Permission given to speak with patient outside sales representative insurance/caregiver as indicated: Yes Confirmation of Payer with patient/family: Yes Payer Name: MMO [employer]: No Confirmation of Primary Care Physician: Confirmed [...] Coverage: Yes Pharmacy Used: [facility] [place] Medication Management: Independent Transportation/Shopping: Independent Transportation Mode: [...] consulted. Daily labs. Spoke with attending via [email or web address] chat and wanted to know costs of [...] stated we were no different here from [facility] and he wanted to speak with the doctor. He threw off his blankets and stated he was out of here. Did update primary care nurse and attending... Natacha Deluna RN [facility] HospitalRgeauj55-51-1124 Note* Significant Event - Bhaskar Reyes MD - 10/13/2022 3:26 PM EDT Seen and examined. Chart/labs/tests reviewed. D/w pt and family at bedside and RN and CM separately. Please see H&P done by Dr Allison earlier today for complete details. [facility] HospitalPztiyl74-93-2367 Note* Significant Event - Bhaskar Reyes MD - 10/13/2022 3:26 PM EDT Seen and examined. Chart/labs/tests reviewed. D/w pt and family at bedside and RN and CM separately. Please see H&P done by Dr Allison earlier today for complete details. [facility] HospitalEqktdt91-49-7001 History and physical note* Yared Allison MD - 10/13/2022 3:55 AM EDT Images from the original note were not included. History and Physical [facility] : 1960 AGE 62 y.o. YEARS Note [...] and had pain He then went to [facility] He was diagnosed with a dvt and then he was started on lovenox and then sent home on xarelto However when he went to get the prescription filled, he reports is was $300 and he could not affordto get it filled Since he could not get it filled, he had not way to treat himself and he went back [facility] He recently travelled to [place] and was driving for about 14 hours [...] He has had a truck trip to [place] which is [address] recently is his only precipitating factor he denies any other clotting disorders in the past He was seen at [place] ultrasound was done he was discharged on Xarelto unfortunately I think it might require preauthorization where the [id number]-ai-[id number] expense for prescription was $300 she could [...] to due risk bleed/procedure 10/13/2022 Corrie Queen [id number] Any scheduled follow up appointments Future Appointments Date Time Provider Department Center 12/11/2022 9:20 AM Garrison Garza MD [facility] BAR None 01/02/2023 10:40 AM Rocio Ruiz MD [facility] SB END None 01/30/2023 10:00 AM Donna Roberts DO [facility]MC PUL None 02/14/2023 7:30 AM Leanne Perales MD [facility] 04/12/2023 8:00 AM Ziggy Frazier MD [facility] Extended Emergency Contact Information Primary Emergency Contact: Maury Queen Mobile Relation: Child Staking Technician needed? No Secondary Emergency Contact: Isa Jiang Mobile Relation: Other Portions of this note may be electronically transcribed. Please forward a copy of this H&P to the primary care physician. [employer] Phone: 1([phone]) 402-690708-19-2023 History and physical note* Yared Allison MD - 10/13/2022 3:55 AM EDT Images from the original note were not included. History and Physical [facility] Corrie Queen : 1960 AGE 62 [...] and had pain He then went to [facility] He was diagnosed with a dvt and then he was started on lovenox and then sent home on xarelto However when he went to get the prescription filled, he reports is was $300 and he could not affordto get it filled Since he could not get it filled, he had not way to treat himself and he went back to the [facility] He recently travelled to [place] and was driving for about 14 hours [...] He has had a truck trip to [place] which is [address] recently is his only precipitating factor he denies any other clotting disorders in the past He was seen at [place] ultrasound was done he was discharged on Xarelto unfortunately I think it might require preauthorization where the qea-td-pdswxl expense for prescription was $300 she could [...] to due risk bleed/procedure 10/13/2022 Corrie Queen [id number] Any scheduled follow up appointments Future Appointments Date Time Provider Department Center 12/11/2022 9:20 AM Garrison Garza MD [facility] URO BAR None 01/02/2023 10:40 AM Rocio Ruiz MD [facility] END None 01/30/2023 10:00 AM Donna Roberts DO [facility] PUL None 02/14/2023 7:30 AM Leanne Perales MD [facility] 04/12/2023 8:00 AM Ziggy Frazier MD [facility] Extended Emergency Contact Information Primary Emergency Contact: Maury Queen Mobile Relation: Child Staking Technician needed? No Secondary Emergency Contact: Lucius Jianghanie Mobile Relation: Other Portions of this note may be electronically transcribed. Please forward a copy of this H&P to the primary care physician. documented in this [facility]08-18-2023 Emergency department Note* Ziggy Barron RN - 10/12/2022 9:40 PM EDT Pt and his daughter agreeable to transport via automobile to [facility]. Report called to [place] [address] [address] nurse. Ziggy Barron RN 10/12/222146 [facility] HospitalRtcomv17-15-9636 Emergency department Note* Ziggy Barron RN - 10/12/2022 9:40 PM EDT Pt and his daughter agreeable to transport via automobile to [facility]. Report called to [place] [address] [address] nurse. Ziggy Barron RN 10/12/222146 * [...] is ambulatory. Pt a/ox3 documented in this [facility]08-18-2023 Emergency department Triage note* Ziggy Barron RN - 10/12/2022 7:42 PM EDT Pt to room 4 via wheelchair with c/o left leg pain and swelling which onset was 5pm. Pt was seen earlier today and discharged but was later decided he was uncomfortable being on his own because he iscurrently wheelchair bound when he normally is ambulatory. Pt a/ox3 [facility]Qgfixy87-47-7700 Physician Emergency department Note* Natacha Frankel DO [...] called. I discussed this case with Dr. Alliosn who accepted patient for admission with Lovenox [...] Emergency Medicine Provider Natacha Frankel DO 10/12/222121 [facility] HospitalHjjlha05-34-3268 Hospital Discharge instructions* Discharge Instructions* Pacheco Negron MD - 10/12/2022 3:[address] Perales about renewing your anticoagulation medicine and how long you will need to be on the medicine. * Attachments The following attachments cannot be sent through Care Everywhere. * Deep Vein Thrombosis (Blood Clot in the Legs) ([place] Citizen) * Going Home on Blood Thinners ([place] Citizen) documented in this [facility]08-18-2023 Emergency department Note* Lauren Del Angel RN - 10/12/2022 1:23 PM EDT Physician at bedside Lauren Del Angel RN 10/12/22 1538 [address]Wdvqhu45-25-4707 Emergency department Note* Lauren Del Angel RN - 10/12/2022 1:23 PM EDT Pt medicated for pain prior to discharge d/t increased pain. Lauren Del Angel RN 10/12/22 1622 [address]Tygsyk87-71-2537 Emergency department Note* Pacheco Negron MD - [...] retention and infection. Recently drove home from [place]. States he is adopted but his biologic [...] PM PATIENT REFERRED TO: Leanne Perales MD [address] [place] [address] [address] [facility] [address] In 1 week DISCHARGE MEDICATIONS: New Prescriptions [...] Emergency Medicine Provider Pacheco Negron MD 10/12/22 5324 Addendum 5:54 PM received call from patient [...] MD 10/12/22 1755 Pacheco Negron MD 10/12/22 1753 * Lauren Del Angel RN - 10/12/2022 [...] states he was recently discharged from hospital [facility] and then informs that he did recently drive home from [place] and returned last week. * Lauren Del Angel RN - 10/12/2022 1:23 PM EDT Physician at bedside Lauren Del Angel RN 10/12/22 1538 * Lauren Del Angel RN - 10/12/2022 1:23 PM EDT Pt medicated for pain prior to discharge d/t increased pain. Lauren Del Angel RN 10/12/22 1622 documented in this [facility]08-18-2023 Emergency department Triage note* Lauren [...] states he was recently discharged from hospital [facility] and then informs that he did recently drive home from [place] and returned last week. [facility] HospitalExqqrj35-17-3232 Physician Emergency department Note* Pacheco Negron MD [...] retention and infection. Recently drove home from [place]. States he is adopted but his biologic [...] PM PATIENT REFERRED TO: Leanne Perales MD [address] [place] [address], [address] [place] [phone] In 1 week DISCHARGE MEDICATIONS: New Prescriptions [...] Negron MD 10/12/221754 Pacheco Negron MD 10/12/221757 [facility] HospitalSwthjm10-18-8911 History of Present illness Narrative* Cheryl Basilio MD - 10/11/2022 8:20 AM EDT Images from the original note were not included. [facility] INTERNAL MEDICINE [address] [facility] [address] [facility] [address] Dept: [phone] Dept Loc: [phone] Visit type: New patient Reason for Visit: New Patient ([facility]) Assessment and Plan 1. Recurrent UTI - [...] alert. Cheryl Basilio MD documented in this [facility]08-16-2023 History of Present illness Narrative* Donna Roberts, - 10/10/2022 1:00 PM EDT [facility] Department of Pulmonary Medicine PATIENT VISIT-PULMONARY [...] effusion. 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 Most recently he traveled to [place], and 10/02 2022, had sharp pain in [...] history. We evaluated his bilateral chest with avwrv-xm-cpji ultrasound and no significant or complicated pleural effusions were detected. Patient denies any significant respiratory limitations at this time, and able to form all activities of daily living without limitation. He is planning upcoming trip again to [place] for [employer] concerts, and feels at baseline at this [...] incidentally trace noted on outside CT in [place]. No evidence of recurrence on physical exam and guguv-sn-vjvy ultrasound. History of recent hospitalization, ESBL recurrent [...] Review Audit Reviewed by Danae Dudley MA (Personnel Director) on 10/10/22 at 1242 Medication Order Taking? Sig Documenting Provider Last Dose Status cabergoline (Dostinex) 0.5 MG tablet [id number] Yes take 1 1/2 tablet by mouth ON SATURDAY AND SATURDAY Leanne Perales MD Taking Active fenofibrate (Triglide) 160 MG tablet [id number] Yes take 1 tablet by mouth once daily Tayler Rivas APRN - BHAVNA Taking Active levothyroxine (Synthroid, Levoxyl) 100 MCG tablet [id number] Yes Take 1 tablet (100 mcg) by mouth daily. Rocio Ruiz MD Taking Active niacin (Niaspan) 1000 MG ER tablet [id number] Yes Take 1 tablet (1,000 mg) by mouth daily. Leanne Perales MD Taking Active rosuvastatin (Crestor) 10 MG tablet [id number] Yes Take 1 tablet (10 mg) by mouth daily. Leanne Perales MD Taking Active tadalafil (Cialis) 20 MG tablet [id number] Yes Take 1 tablet (20 mg) by mouth Daily as needed for erectile dysfunction. Tayler Rivas APRN - BHAVNA Taking Active tamsulosin (Flomax) 0.4 MG 24 hr capsule [id number] Yes Take 1 capsule (0.4 mg) by [...] Results: No results found for: FEV1, FVC, HTT2OWF, TLC, DLCO Orders Placed This Encounter Procedures [...] pre and post bronchodilator documented in this [facility]08-16-2023 Instructions* Patient Instructions* Danae Dudley MA - 10/10/2022 1:00 PM EDT YOUR APPOINTMENT TODAY WAS WITH THE [facility] LUNG NODULE [facility], COPD CLINIC, PULMONARY AND SLEEP MEDICINE OFFICE. PLEASE CALL OUR OFFICE AT [phone] IF YOU HAVE NOT RECEIVED YOUR TEST [...] to make improvements. COVID-19 VACCINATION INFORMATION: PH. [phone] HEALTH.ORG/CORONAVIRUS/VACCINE [facility] Central Scheduling [phone] [facility] Sleep Scheduling [phone] documented in this [facility]07-23[facility]2023 Telephone encounter Note* Telephone Encounter - FELISHA Naylor CNP - 09/16/2022 12:34 PM EDT Reviewed urine culture results with patient. Urine culture resistant to multiple organisms. Stop cephalexin started recently and start nitrofurantoin 100 mg twice daily x 7 days. [facility] HospitalWorphp01-27-1778 Miscellaneous Notes* Telephone Encounter - FELISHA Naylor CNP - 09/16/2022 12:34 PM EDT Reviewed urine culture results with patient. Urine culture resistant to multiple organisms. Stop cephalexin started recently and start nitrofurantoin 100 mg twice daily x 7 days. documented in this [facility]07-20-2023 Evaluation + Plan note* Assessment [...] of fever, chills, n/v. Increased flank pain [facility] HospitalOaczlf57-94-7172 Miscellaneous Notes* Assessment & Plan Note - FELISHA Naylor CNP - 09/13/2022 12:57 PM EDTAssociated Problem(s): Urinary tract infection symptoms UA trace blood, + leukocytes. Send for culture. We will wait for urine culture results. No fever orchills. CT of abd/pelvis next week. Has bee referred to urology. Go to ER for development of fever, chills, n/v. Increased flank pain documented in this [facility]07-20-2023 History of Present illness Narrative* [...] CNP 09/13/2022 11:54 AM documented in this [facility]07-20-2023 Instructions* Patient Instructions* FELISHA Naylor CNP - 09/13/2022 11:40 AM EDT I will call you on Saturday to update on urine culture. documented in this [facility]06-28-2023 Telephone encounter Note* Telephone Encounter - Nelli Lama MA - 08/22/2022 1:29 PM EDT Prescription Request: Last medication check: 08/03/21 Last physical exam: 02/06/22 Next scheduled appointment: 02/14/23 Last date of refill on this medication 04/04/22 36 tablets 1 refill [facility] HospitalNngfqz13-53-7016 Miscellaneous Notes* Telephone Encounter - Nelli Lama MA - 08/22/2022 1:29 PM EDT Prescription Request: Last medication check: 08/03/21 Last physical exam: 02/06/22 Next scheduled appointment: 02/14/23 Last date of refill on this medication 04/04/22 36 tablets 1 refill documented in this [facility] CenterVmrlmz48-93-1681 History of Present illness Narrative* Tayler Rivas APRN - BUFF WHEEL FABRICATOR - 08/17/2022 8:20 AM EDT Images from [...] CNP 08/17/2022 8:44 AM documented in this [facility] History of Present illness Narrative* [...] CNP 08/17/2022 8:44 AM documented in this [facility]2023 Miscellaneous Notes* Addendum Note - FELISHA Jeronimo CNP - 08/17/2022 8:20 AM EDTAddended by: TAYLER RIVAS on: 08/20/2022 09:36 AM Modules accepted: Orders documented in this [facility]-2023 Note* Addendum Note - FELISHA Jeronimo CNP - 08/17/2022 8:20 AM EDTAddended by: TAYLER RIVAS on: 08/20/2022 09:36 AM Modules accepted: Orders [facility] HospitalMwwtet05-92-8313 Telephone encounter Note* Telephone Encounter - FELISHA Jeronimo CNP - 07/04/2022 3:57 PM EDT Rx sent. Follow up as scheduled. [facility] HospitalZfntku91-31-7974 Miscellaneous Notes* Telephone Encounter - FELISHA Jeronimo [...] on this medication 10/16/21 documented in this [facility]05-10-2023 Telephone encounter Note* Telephone Encounter - Mary Garcia MA - 07/04/2022 3:20 PM EDT Prescription Request: Last medication check: 08/03/21 Last physical exam: 02/06/22 Next scheduled appointment: 08/06/22 CSA on file (date): na Last urine drug screen: na Last date of refill on this medication 10/16/21 [facility] HospitalKqsfab10-25-8914 Evaluation + Plan note* Assessment & Plan Note - Leanne Perales MD - 06/19/2022 4:16 PM EDTAssociated Problem(s): Combined arterial insufficiency and corporo-venous occlusive erectile dysfunction Prescription for Cialis 20 mg printed so he can shop around for the best ruiz. [place] [address]Lgcpto62-12-0978 Miscellaneous Notes* Assessment & Plan Note - Leanne Perales MD - 06/19/2022 4:16 PM EDTAssociated Problem(s): Combined arterial insufficiency and corporo-venous occlusive erectile dysfunction Prescription for Cialis 20 mg printed so he can shop around for the best ruiz. documented in this [place] [address]-25-2023 Miscellaneous Notes* Assessment & Plan Note - [...] accepted: Level of Service documented in this [place] [address]-25-2023 History of Present illness Narrative* Nelly Correia MA - 06/19/2022 1:45 PM EDT Patient verified by last name and date of . Patient wants a sql server dba in the room during during the visit. no Marine Railway Operator na * Leanne Perales MD - 06/19/2022 [...] MD 06/19/2022 4:17 PM documented in this [facility]04-25-2023 History of Present illness Narrative* Nelly Correia MA - 06/19/2022 1:45 PM EDT Patient verified by last name and date of . Patient wants a sql server dba in the room during during the visit. no Marine Railway Operator na * Leanne Perales MD - 06/19/2022 [...] MD 06/21/2022 3:52 PM documented in this [facility]04-25-2023 Note* Addendum Note - Leanne Perales MD - 06/19/2022 1:45 PM EDTAddended by: LEANNE PERALES on: 06/21/2022 03:52 PM Modules accepted: Level of Service [facility] HospitalTkcpxa34-18-4297 Evaluation + Plan note* Assessment & Plan Note - Leanne Perales MD - 05/17/2022 12:42 PM EDTAssociated Problem(s): Right flank pain Recurrent flank pain. Urinalysis shows trace of blood and leukocytes, will send for culture and start him on Bactrim. [facility] HospitalPmmzrq12-37-3727 Miscellaneous Notes* Assessment & Plan Note - Leanne Perales MD - 05/17/2022 12:42 PM EDTAssociated Problem(s): Right flank pain Recurrent flank pain. Urinalysis shows trace of blood and leukocytes, will send for culture and start him on Bactrim. documented in this [facility]03-23-2023 History of Present illness Narrative* Paloma Holland - 05/17/2022 11:45 AM EDT Marine Railway Operator for Intimate and Non Intimate Exam Marine Railway Operator was declined Marine Railway Operator: na * Leanne Perales MD - 05/17/2022 [...] MD 05/17/2022 12:43 PM documented in this [facility]02-02-2023 Telephone encounter Note* Telephone Encounter - Chana Mckoy - 03/29/2022 4:39 PM EST Order closed [facility] HospitalGxbdsk92-91-3149 Miscellaneous Notes* Telephone Encounter - Chana Mckoy [...] to close orders? * Telephone Encounter - hCana Mckoy - 03/23/2022 12:[address]-Lumbar [...] to Patient: pt Provider: Practice: [facility] [place] Chief Complaint/Reason for Call: Caller is stating that [employer] Auth for CT has been denied please ref [id number] as they will also be sending a fax Best time of day caller can be reached: any Patient advised that office/PCP has 24-48 business hours to return their call: No documented in this encounterSRegional Medical CenterOmaear08-75-9603 Telephone encounter Note* Telephone Encounter - Leanne Perales MD - 03/27/2022 3:21 PM EST Okay, thank you okay to cancel the CT scan [facility] HospitalKkhkik63-92-3270 Miscellaneous Notes* Telephone Encounter - Leanne Perales [...] Relationship to Patient: pt Provider: Practice: [facility] [place] Chief Complaint/Reason for Call: Caller is stating that [employer] Auth for CT has been denied please ref [id number] as they will also be sending a fax Best time of day caller can be reached: any Patient advised that office/PCP has 24-48 business hours to return their call: No documented in this [facility]01-31-2023 Telephone encounter Note* Telephone Encounter - Nelli Lama - 03/27/2022 3:01 PM EST Patient notified, said he is not having any pain right now and doesn't think physical therapy is necessary. [facility] HospitalFgzjgb26-20-2990 Note* Addendum Note - Leanne Perales MD - 03/27/2022 1:05 PM ESTAddended by: LEANNE PERALES on: 03/27/2022 01:05 PM Modules accepted: Orders [facility] HospitalNaiiup22-75-9205 Note* Addendum Note - Leanne Perales MD - 03/27/2022 1:05 PM ESTAddended by: LEANNE PERALES on: 03/27/2022 01:05 PM Modules accepted: Orders [facility] HospitalOervfc10-18-7501 Note* Addendum Note - Leanne Perales MD - 03/27/2022 1:05 PM ESTAddended by: LEANNE PERALES on: 03/27/2022 01:05 PM Modules accepted: Orders [address]31-2023 Note* Addendum Note - Leanne Perales MD - 03/27/2022 1:05 PM ESTAddended by: LEANNE PERALES on: 03/27/2022 01:05 PM Modules accepted: Orders [address]Lqcvsf78-39-4350 Note* Addendum Note - Leanne Perales MD - 03/27/2022 1:05 PM ESTAddended by: LEANNE PERALES on: 03/27/2022 01:05 PM Modules accepted: Orders [facility]01-31-2023 Telephone encounter Note* Telephone Encounter - Leanne Perales MD - 03/27/2022 1:03 PM EST We will need to contact patient to get him into physical therapy, referral done [facility]01-31-2023 Telephone encounter Note* Telephone Encounter - Chana Mckoy - 03/27/2022 10:15 AM EST How do you want to proceed with this denial? Okay to close orders? [facility] HospitalIiztyn43-46-5079 Telephone encounter Note* Telephone Encounter - Chana [...] contact with your provider after completing treatment. [facility] HospitalAlghwa30-91-5671 Miscellaneous Notes* Telephone Encounter - Chana Mckoy [...] for CT has been denied please ref [id number] as they will also be sending a fax Best time of day caller can be reached: any Patient advised that office/PCP has 24-48 business hours to return their call: No documented in this [facility]01-26-2023 Telephone encounter Note* Telephone Encounter - Chana Conroy - 03/22/2022 12:50 PM EST Name of caller: Lillian Akbar ) Contact phone number: Apt [address] Relationship to Patient: pt Provider: Practice: [facility] Chief Complaint/Reason for Call: Caller is stating that Pri[facility] Auth for CT has been denied please ref [id number] as they will also be sending a fax Best time of day caller can be reached: any Patient advised that office/PCP has 24-48 business hours to return their call: No [facility] HospitalKwtnrw19-45-1618 Miscellaneous Notes* Telephone Encounter - Chana Conroy - 03/22/2022 12:50 PM EST Name of caller: Sima( Naomie ) Contact phone number: [address] Relationship to Patient: pt Provider: Practice: [place] Chief Complaint/Reason for Call: Caller is stating that Pri[facility] Auth for CT has been denied please ref [id number] as they will also be sending a fax Best time of day caller can be reached: any Patient advised that office/PCP has 24-48 business hours to return their call: No documented in this [facility]01-17-2023 Telephone encounter Note* Telephone Encounter [...] prior to picking up the medication: Yes [facility] HospitalRjzfzb23-73-3555 Miscellaneous Notes* Telephone Encounter - Deepa Burrell [...] up the medication: Yes documented in this encounterSRegional Medical CenterJvftme22-91-5512 Evaluation + Plan note* Assessment & Plan [...] about working or driving with this medicine. [facility] HospitalYworek12-78-8958 Miscellaneous Notes* Assessment & Plan Note - [...] driving with this medicine. documented in this [facility]01-10-2023 Evaluation + Plan note* Assessment [...] about working or driving with this medicine. [facility] HospitalPkmybj87-76-8924 History of Present illness Narrative* Leanne Perales [...] MD 03/06/2022 3:47 PM documented in this [facility]01-03-2023 Evaluation + Plan note* Assessment & Plan Note - FELISHA Naylor CNP - 02/27/2022 5:29 PM ESTAssociated Problem(s): Essential hypertension, benign Initial reading elevated. Repeat good. Not on medications. [facility] HospitalQfzxat65-44-2213 Miscellaneous Notes* Assessment & Plan Note - [...] (has rx from prior). documented in this [facility]01-03-2023 Miscellaneous Notes* Assessment & Plan [...] accepted: Level of Service documented in this [facility]01-03-2023 Evaluation + Plan note* Assessment & Plan Note - FELISHA Naylor CNP - 02/27/2022 5:28 PM ESTAssociated Problem(s): Acute cystitis without hematuria Urine culture + ecoli. Sensitivity to augmentin. Will extend treatment for additional 4 days. Continue to monitor. Increase fluid intake. [facility] HospitalRmffsj77-49-5792 Evaluation + Plan note* Assessment & Plan Note - FELISHA Naylor CNP - 02/27/2022 5:27 PM ESTAssociated Problem(s): Flank pain Likely more musculoskeletal. No fever, non ill appearing. Ok for muscle relaxant (has rx from prior). [facility] HospitalJsqmxw18-93-8709 History of Present illness Narrative* Paloma Holland - 02/27/2022 1:20 PM EST Marine Railway Operator for Intimate and Non Intimate Exam Marine Railway Operator was declined Marine Railway Operator: na * FELISHA Naylor CNP - 02/27/2022 [...] CNP 02/27/2022 4:42 PM documented in this [facility]01-03-2023 History of Present illness Narrative* Paloma Holland - 02/27/2022 1:20 PM EST Marine Railway Operator for Intimate and Non Intimate Exam Marine Railway Operator was declined Marine Railway Operator: na * FELISHA Naylor CNP - 02/27/2022 [...] CNP 02/27/2022 4:42 PM documented in this [facility]01-03-2023 Note* Addendum Note - FELISHA Naylor CNP - 02/27/2022 1:20 PM ESTAddended by: CHANA BROWN on: 02/28/2022 04:39 PM Modules accepted: Level of Service [facility] HospitalVorvyx38-91-4321 NoteHospitalist Discharge Summary Corrie Queen : 1960 [...] These medications were sent to [id number] - [address] [phone] - [phone] [place] [phone] nicotine 21 MG/24HR Recommended Follow-up: PCP, cardiology, urology outpatient in 1-2 weeks Readmission Risk Risk of Unplanned Readmission: 11 Complexity of Follow up: [] Moderate Complexity: follow up within 7-14 calendar days (47506) [x] Severe Complexity: follow up within 7 calendar days (50311) Follow up Testing, Pending results or Referrals [...] DO Division of Hospitalist Medicine Inpatient Medical Services/[facility] 12/06/2021, 8:50 [facility]10-11-2022 History of Present illness Narrative* Nallely Villegas RN - 12/05/2021 8:11 PM EDT Patient has been adamant about taking his medications from home. Medications were sent down to Pharmacy to verify. Unable to scan meds because they are formulary. Notified Shikha, Customer Greeter on 12/04/2021 of situation. Notified Kiara Kapoor SUPERVISOR ACCOUNTING CLERKS on 12/04/2021. Patient had been threatening to leave AMA on 12/03/2021 & 12/04/2021. Patient also adamantly refusing to receive ordered IVF. Dr. Barlow notified on 12/03/2021. Kiara aKpoor SUPERVISOR ACCOUNTING CLERKS notified on 12/04/2021 Revisited situation with Shikha Customer Greeter on 12/05/2021. * Lorena Jama MD - 12/05/2021 8:37 AM EDT Images from the original note were not included. [facility] - Infectious Diseases Attending Progress Note [...] Radiography/Echo/Other: ACCESSION EXAM DATE/TIME PROCEDURE ORDERING PROVIDER [id number] 12/04/2021 10:28 EDT US Retroperitoneal KIARA BOB CPT code 06988 Reason For Exam (US Retroperitoneal Limited) R [...] care expectations & antimicrobials. * Kiara Kapoor, DIGITAL FORENSICS INVESTIGATOR - BUFF WHEEL FABRICATOR - 12/05/2021 8:13 AM EDT Images from the original note were not included. Hospitalist Progress Note 12/05/[id number]: Please reach me on Perfect Serve patient care issues. [phone]: Please page IMS night Hospitalist for any [...] to improve FELISHA Pool CNP [facility] * Sharon Escobedo RN - 12/05/2021 6:01 AM EDT Pt still does not want IV fluids running. Has been drinking water throughout the night. * Lorena Jama MD - 12/04/2021 10:30 AM EDT Images from the original note were not included. [facility] - Infectious Diseases Attending Progress Note [...] Radiography/Echo/Other: ACCESSION EXAM DATE/TIME PROCEDURE ORDERING PROVIDER [id number] 12/04/2021 10:28 EDT US Retroperitoneal KIARA BOB CPT code 06544 Reason For Exam (US Retroperitoneal Limited) R [...] care expectations & antimicrobials. * Kiara Kapoor, DIGITAL FORENSICS INVESTIGATOR - BUFF WHEEL FABRICATOR - 12/04/2021 9:24 AM EDT Images from the original note were not included. Hospitalist Progress Note 12/04/2021 [phone]: Please reach me on Perfect Serve patient care issues. [phone]: Please page IMS night Hospitalist for any [...] CNP Division of Hospitalist Medicine Inpatient Medical Services/[facility] * Sharon Escobedo RN - 12/04/2021 7:21 [...] then stated, I would rather be in [facility] then be here. Patient then began to speak of his who one year ago, and was a patient on this floor. Patient requesting to see Attending and Infectious Disease. Perfectserved Dr. Barlow and Dr. Jama to notify of request. * Shane Barlow MD - 12/03/2021 7:04 AM EDT Images from the original note were not included. Hospitalist Progress Note 12/03/2021 [phone]: Please page me ([phone]) for patient care issues. [phone]: Please page [facility] night Hospitalist for any issues. [...] - BMI 30.30 Plan -Patient [facility] to [facility] with complaints of ongoing right flank [...] that it is worse than being in [facility]. Hada long conversation with him regarding the [...] MD Division of Hospitalist Medicine Inpatient Medical Services/[facility] PAGER: PERFECT SERVE * Sharon Escobedo RN [...] I'm having my daughter bring me in [employer]. RD provided emotionalsupport regarding pt's frustration. Nutrition [...] Anthropometric Measures: Height: 6' 2 (188 cm) Sheldon Body Weight (IBW): 190 lbs (86 kg) Current Body Weight: 236 lb (107 kg), IBW. Current BMI (kg/m2): 30.3 Usual Body Weight: 245 lb (111.1 kg) % Weight Change (Calculated): -3.7 Weight Adjustment For: No Adjustment BMI Categories: Obese Class 1 (BMI 30.0-34.9) Estimated Daily Nutrient Needs: Energy Requirements Based On: Kcal/kg Weight Used for Energy Requirements: [employer] (kcal/day): 0262-5829 (25-30 kcals/kg) Weight Used for Protein Requirements: Sheldon Protein (g/day): 86-103 (1.0-1.2g/kg) Method Used for [...] were not included. Hospitalist Progress Note 12/02/[phone]: Please page me ([phone]) for patient care issues. [phone]: Please page [facility] night Hospitalist for any issues. Subjective: Admit Date: 12/01/2021 PCP: Leanne Perales MD Room#: 158/1583 Interval History: No overnight issues. Patient was [...] - BMI 30.30 Plan -[facility] with complaints of ongoing right flank [...] MD Division of Hospitalist Medicine Inpatient Medical Services/[facility]: PERFECT SERVE [facility] Work Phone: 1(564) 930-234110-11-2022 Hospital Discharge instructions* Discharge Instr - Other [...] SCHNEIDERP. documented in this encounter[facility] Work Phone: 1(639) 770-725710-03-2022 Hospital Discharge instructions* Discharge Instructions* Tc Spence MD - 11/27/2021 11:20 PM EDT Can return here for fever/vomiting; facility supervisor antibiotic your doctor prescribed you * Attachments The following attachments cannot be sent through Care Everywhere. * Flank Pain ([place]) documented in this encounterSUMMA Work Phone: Consult note Author Dana Gonzales [facility] February 13, 2023 3:56pm Note Date/Time February 13, 2023 3:56pm [facility] Medical Records Department [address] [place] [address] Counseling Note - Pharmacy 02/13/23 1555 MR#: [id number] Acct: [id number] Name: CORRIE QUEEN Rep #:[id number] : 1960 62 From: Dana Gonzales PCP: CHERYL BASILIO Status:ADM TAMMY Y Location: [place] [address] Pharmacy [facility] Pharmacy Service has performed discharge medication reconciliation [...] Signature (if applicable): Date CC: ~ Signed [facility] Work Phone: Evaluation + Plan note Future Appointments Appointment Date:01/09/2024 09:45:00 AM Scheduled Provider:BASIM RAMSEY MD Location:[facility] Appointment Type:ENDO OV Diagnostic Tests Pending * Testosterone,Free and Total 01/03/24 [facility] Evaluation + Plan note Future Appointments Appointment Date:04/21/2024 09:00:00 AM Scheduled Provider: Location:[facility] Appointment Type:ENDO Nurse Diagnostic Tests [...] Level 08/14/24 * Complete Metabolic Panel 04/16/24 [facility] Evaluation note* Diagnosis Macroprolactinoma (HCC) Benign [...] Pyelonephritis Pyelonephritis, unspecified Infection due to extended-spectrum ytdz-[id number]-qbswfzeyo Escherichia coli Other and unspecified Escherichia coli (E. coli) Sepsis due to Escherichia coli with acute renal failure without septic shock (HCC) Unspecified abdominal pain documented in this encounter [facility] Work Phone: Evaluation note* Diagnosis Right flank pain- Primary Abdominal pain, unspecified site documented in this encounter [facility] note* Diagnosis Combined arterial insufficiency and corporo-venous occlusive erectile dysfunction- Primary [facility] [place]* Diagnosis Combined arterial insufficiency and corporo-venous occlusive erectile dysfunction- Primary [facility] [place] [facility]* Diagnosis Recurrent UTI- Primary Urinary tract infection, site not specified Dysuria Urinary frequency Urinary urgency Urgency of urination Chronic right-sided low back pain without sciatica Leukocytes in urine Other nonspecific finding on examination of urine Hematuria, unspecified type documented [facility] [place] [facility]* Diagnosis Recurrent UTI- Primary Urinary tract infection, site not specified Dysuria Urinary frequency Urinary urgency Urgency of urination Chronic right-sided low back pain without sciatica Leukocytes in urine Other nonspecific finding on examination of urine Hematuria, unspecified type [facility] [place] [facility] Diagnosis Urinary tract infection symptoms- Primary documented [facility] [place] [facility]* Diagnosis Acute cystitis without hematuria- Primary [facility] Diagnosis Pleural effusion- Primary Unspecified pleural effusion History of tobacco abuse Centrilobular emphysema (HCC) documented [facility] this encounter [facility] [place] [facility]* Diagnosis Complex renal cyst Other specified congenital cystic kidney disease [facility] Diagnosis Recurrent UTI- Primary Urinary tract infection, site not specified Benign prostatic hyperplasia without lower urinary tract symptoms [facility] [place] [facility]* Diagnosis Leg swelling- Primary Swelling of limb Acute deep vein thrombosis (DVT) of left lower extremity, unspecified vein (HCC) documented [facility] [place] [facility]* Diagnosis Acute deep vein thrombosis (DVT) of left lower extremity, unspecified vein (HCC)- Primary Acute deep vein thrombosis (DVT) of left lower extremity, unspecified vein (HCC) Ambulatory dysfunction documented in this encounter [facility] note* Diagnosis Acute deep vein thrombosis (DVT) of left lower extremity, unspecified vein (HCC)- Primary Acute deep vein thrombosis (DVT) of left lower extremity, unspecified vein (HCC) documented in this encounter [facility] note* Diagnosis Acute deep vein thrombosis (DVT) of left lower extremity, unspecified vein (HCC) [facility] Diagnosis Acute deep vein thrombosis (DVT) of left lower extremity, unspecified vein (HCC)- Primary [facility]* Diagnosis Deep vein thrombosis (DVT) of proximal vein of left lower extremity, unspecified chronicity (HCC)- Primary [facility]* Diagnosis Flank pain- Primary Abdominal pain, unspecified site 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) [facility]* Diagnosis Flank pain- Primary Abdominal pain, unspecified site 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) [facility]* Diagnosis Right flank pain Abdominal pain, unspecified site 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) [facility]* Diagnosis Acute right flank pain- Primary 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) [facility]* Diagnosis Sebaceous cyst of left eyelid- Primary [facility]* Diagnosis Bleeding- Primary Unspecified hemorrhage [facility]* Diagnosis Chronic deep vein thrombosis (DVT) of iliofemoral vein (HCC)- Primary [facility]* Diagnosis 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) [facility]* Diagnosis Macroprolactinoma (HCC)- Primary Benign neoplasm of pituitary gland and craniopharyngeal duct (pouch) Pituitary adenoma (HCC) 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 Hypercalcemia [facility]* Diagnosis Hypogonadism in male- Primary [facility]* Diagnosis 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) [facility]* Diagnosis Onset Date Resolution Status Ileofemoral deep vein thrombosis 2022 [facility] Work Phone: Evaluation note* Diagnosis Onset Date Resolution Status Ileofemoral deep vein thrombosis 2022 acute Ileofemoral deep vein thrombosis 2022 acute [facility] Work Phone: Evaluation note* Diagnosis Onset Date Resolution Status Deep vein thrombosis (DVT) o f iliac vein of left lower extremity chronic BPH (benign prostatic hyperplasia) acute Elevated blood pressure reading acute Fatty liver acute High cholesterol acute History of diverticulitis [place] History of renal disease acu te Pituitary abnormality acute Smoker acute Thyroid disease acute Deep vein thrombosis (DVT) o f iliac vein of left lower extremity chronic [facility] Work Phone: Evaluation note* Diagnosis Onset Date Resolution Status Deep vein thrombosis (DVT) o f iliac vein of left lower extremity chronic BPH (benign prostatic hyperplasia) acute Elevated blood pressure reading acute Fatty liver acute High cholesterol acute History of diverticulitis [place] History of renal disease acu te Pituitary abnormality acute Smoker acute Thyroid disease acute Deep vein thrombosis (DVT) o f iliac vein of left lower extremity chronic Flank pain acute History of renal disease acu te [facility] Work Phone: Evaluation note* Diagnosis Onset Date Resolution Status Ileofemoral deep vein thrombosis 2022 acute Ileofemoral deep vein thrombosis 2022 acute Deep vein thrombosis (DVT) o f iliac vein of left lower extremity chronic BPH (benign prostatic hyperplasia) acute Elevated blood pressure reading acute Fatty liver acute High cholesterol acute History of diverticulitis [place] History of renal disease acu te Pituitary abnormality acute Smoker acute Thyroid disease acute Deep vein thrombosis (DVT) o f iliac vein of left lower extremity chronic Flank pain acute History of renal disease acu te Flank pain acute Ileofemoral deep vein thrombosis 2022 acute [facility] Work Phone: Evaluation note* Diagnosis Onset Date Resolution Status Ileofemoral deep vein thrombosis 2022 acute Ileofemoral deep vein thrombosis 2022 acute Deep vein thrombosis (DVT) o f iliac vein of left lower extremity chronic BPH (benign prostatic hyperplasia) acute Elevated blood pressure reading acute Fatty liver acute High cholesterol acute History of diverticulitis [place] History of renal disease acu te Pituitary abnormality acute Smoker acute Thyroid disease acute Deep vein thrombosis (DVT) o f iliac vein of left lower extremity chronic Flank pain acute History of renal disease acu te Flank pain acute Ileofemoral deep vein thrombosis 2022 acute Flank pain acute [facility] Work Phone: Evaluation note* Diagnosis Onset Date Resolution Status Ileofemoral deep vein thrombosis 2022 acute Deep vein thrombosis (DVT) o f iliac vein of left lower extremity chronic BPH (benign prostatic hyperplasia) acute Elevated blood pressure reading acute Fatty liver acute High cholesterol acute History of diverticulitis [place] History of renal disease acu te Pituitary abnormality acute Smoker acute Thyroid disease acute Deep vein thrombosis (DVT) o f iliac vein of left lower extremity chronic Flank pain acute History of renal disease acu te Flank pain acute Ileofemoral deep vein thrombosis 2022 acute Flank pain acute [facility] Work Phone: Evaluation note* Diagnosis Onset Date Resolution Status Deep vein thrombosis (DVT) o f iliac vein of left lower extremity chronic BPH (benign prostatic hyperplasia) acute Elevated blood pressure reading acute Fatty liver acute High cholesterol acute History of diverticulitis [place] History of renal disease acu te Pituitary abnormality acute Smoker acute Thyroid disease acute Deep vein thrombosis (DVT) o f iliac vein of left lower extremity chronic Flank pain acute History of renal disease acu te Flank pain acute Ileofemoral deep vein thrombosis 2022 acute Flank pain acute [facility] Work Phone: Evaluation note* Diagnosis Pituitary adenoma (HCC)- Primary Benign neoplasm of pituitary gland and craniopharyngeal duct (pouch) Hypercalcemia 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) Other anterior pituitary disorders documented [facility]* Diagnosis Hypogonadism in male 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) [facility]* Diagnosis Pituitary adenoma (HCC) Benign neoplasm of pituitary gland and craniopharyngeal duct (pouch) [facility]* Diagnosis Acute cystitis without hematuria- Primary Flank pain Abdominal pain, unspecified site Essential hypertension, benign [facility]* Diagnosis Acute cystitis without hematuria- Primary Flank pain Abdominal pain, unspecified site Essential hypertension, benign [facility]* Diagnosis Acute right-sided low back pain without sciatica- Primary Right flank pain Abdominal pain, unspecified site [facility]* Diagnosis Complex renal cyst- Primary Other specified congenital cystic kidney disease documented in this encounter [facility] note* Diagnosis Right flank pain- Primary Abdominal pain, unspecified site Acute right-sided low back pain without sciatica documented in this encounter [facility] note* Diagnosis Right flank pain- Primary Abdominal pain, unspecified site Acute right-sided low back pain without sciatica documented in this encounter [facility] course Narrative No data available for this section [facility] Hospital Discharge instructions No data available for this section [facility] Hospital Discharge instructionsAdditional Instructions Your evaluation [...] with your primary care doctor soon as possible.[facility] Work Phone: Progress note No data available for this section [facility] Reason for referral (narrative)* Consultation (Routine) - Closed Specialty Diagnoses / Procedures Referred By Contac t Referred To Contact Vascular Surgery Diagnoses Acute deep vein thrombosis (DVT) of left lower extremity, unspecified vein (HCC) Procedures NE OFFICE/OUTPATIENT NEW HIGH [facility] 60-74 MINUTES Cheryl Basilio MD [address] [facility] [address] [place] [address] [facility] [address] [facility] [address] [place] [address] Referral ID Status Reason Start Date Expiration Date V isits Requested Visits Authorized [id number] Closed Specialty Services Required 12/03/2022 12/03/2023 1 1 [facility] for referral (narrative)No reason for referral information [facility]WSamaritan [facility] Work Phone: Assessments Diagnosis Primary hyperparathyroidism (HCC) Primary hyperparathyroidism Prolactin secreting pituitary adenoma (HCC) 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 Advance Directives No Advanced Directives Records FoundDocuments on File Type Date Recorded 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 Advance Directives and Living Will Power of B And B Gang Worker Latest Code Status on File Code Status [...] February 06, 2 023 8:38am Power of B And B Gang Worker No February 06, 2023 8:38am Advance Directive Response Recorded Date/ Time Living Will No February 06, 2 023 9:38am Power of B And B Gang Worker No February 06, 2023 9:38am Date Activated Date Inactivated Comments 12/25/2022 8:25 AM 12/25/2022 7:01 PM Date Activated Date Inactivated Comments 10/13/2022 4:25 AM 10/16/2022 6:08 PM Date Activated Date Inactivated Comments 09/18/2022 1:19 AM 09/23/2022 3:25 PM Advance Directive Response Recorded Date/ Time Do you have a Healthcare Power of B And B Gang Worker? No August 02, 2024 9:10am Advance Directive Response Recorded Date/ Time Do you have a Healthcare Power of B And B Gang Worker? No August 02, 2024 9:10am Do you have a Healthcare Power of B And B Gang Worker? No October 03, 2024 10:59am Advance Directive Response Recorded Date/ Time Do you have a Healthcare Power of B And B Gang Worker? No October 03, 2024 10:59am Summary Purpose [...] dose Donna Roberts DO [address] [place] [id number] Referral ID Status Reason Start Date Expiration Date V isits Requested Visits Authorized [id number] Pending Review 10/10/2022 04/08/2023 1 1 Specialty Diagnoses / Procedures Referred By Contac t Referred To Contact Diagnoses History of tobacco abuse Centrilobular emphysema (HCC) Procedures Complete PFT pre and post bronchodilator Donna Roberts DO [address] [place] [address] Referral ID Status Reason Start Date Expiration Date V isits Requested Visits Authorized [id number] Incomplete 10/10/2022 04/08/2023 1 1 Specialty Diagnoses / Procedures Referred By Contac t Referred To Contact Diagnoses Benign prostatic hyperplasia without lower urinary tract symptoms Cheryl Basilio MD [address] [facility] [address] [place] [address] Referral ID Status Reason Start Date Expiration Date V isits Requested Visits Authorized [id number] Pending Review 1 1 Specialty Diagnoses / Procedures Referred By Contac t Referred To Contact Pacheco Negron MD [address] [place] [address] Referral ID Status Reason Start Date Expiration Date V isits Requested Visits Authorized [id number] Pending Review 1 1 Specialty Diagnoses / Procedures Referred By Contac t Referred To Contact Cardiology Diagnoses Acute deep vein thrombosis (DVT) of left lower extremity, unspecified vein (HCC) Procedures Vascular US lower extremity venous duplex bilateral Cheryl Basilio MD [address] [facility] [address] [place] [address] [facility] [address] [place] [address] Referral ID Status Reason Start Date Expiration Date Visits Re quested Visits Authorized [id number] Closed 11/14/2022 05/13/2023 1 1 Specialty Diagnoses / Procedures Referred By Contac t Referred To Contact Radiology Diagnoses Pituitary adenoma (HCC) Procedures MR pituitary w and wo IV contrast Rocio Calix MD [address] [place] [address] [address] [place] [address] Referral ID Status Reason Start Date Expiration Date V isits Requested Visits Authorized [id number] Pending Review 07/31/2023 07/30/2024 1 1 Referral ID Status Reason Start Date Expiration Date Visits Re quested Visits Authorized [id number] Closed 07/31/2023 07/30/2024 1 1 Specialty Diagnoses / Procedures Referred By Contac t Referred To Contact Radiology Diagnoses Right flank pain Acute right-sided low back pain without sciatica Procedures CT lumbar spine wo IV contrast Leanne Perales MD [address] [facility] [place] [address] Referral ID Status Reason Start Date Expiration Date V isits Requested Visits Authorized [id number] Pending Review 03/06/2022 09/02/2022 1 1 Specialty Diagnoses / Procedures Referred By Contac t Referred To Contact Physical Therapy Diagnoses Right flank pain Acute right-sided low back pain without sciatica Procedures NE OFFICE/OUTPATIENT NEW HIGH MDM 60-74 MINUTES Leanne Perales MD [address] [facility] [place] [address] [facility] [address] [place] [address] [place] [address] Referral ID Status Reason Start Date Expiration Date Visits Requested Visits Authorized [id number] Pending Review Eval and Treat 03/27/2022 09/23/2022 [...] KJ LUNA Primary Care Provider Active Dr. Faboi Day MD Other Provider Active Team Status: Inactive Member Role Status RUBI [place] Primary Care Provid er, Attending Provider, Referring Provider Active Facility Maintenance Mechanic Relationship Specialty Start Date End [place] [address] PCP - General 11/12/15 Facility Maintenance Mechanic Relationship Specialty Start Date End [place] [address] PCP - General 11/12/15 Facility Maintenance Mechanic Relationship Specialty Start Date End [place] [address] PCP - General 11/12/15 Facility Maintenance Mechanic Relationship Specialty Start Date End [place] [address] PCP - General 11/12/15 Facility Maintenance Mechanic Relationship Specialty Start Date End [place] [address] PCP - General 11/12/15 Facility Maintenance Mechanic Relationship Specialty Start Date End [place] [address] PCP - General 11/12/15 Facility Maintenance Mechanic Relationship Specialty Start Date End Date [facility] [place] [address] PCP - General 11/12/15 Facility Maintenance Mechanic Relationship Specialty Start Date End [place] [address] PCP - General 11/12/15 Facility Maintenance Mechanic Relationship Specialty Start Date End Date Leanne Perales MD [address] [facility] [place] [address] PCP - General 11/12/15 Facility Maintenance Mechanic Relationship Specialty Start Date End Date Leanne Perales MD 25 [place] [address] PCP - General 11/12/15 Facility Maintenance Mechanic Relationship Specialty Start Date End Date Leanne Perales MD 25 [place] [address] PCP - General 11/12/15 Facility Maintenance Mechanic Relationship Specialty Start Date End Date Leanne Perales MD 25 [place] [address] PCP - General 11/12/15 Facility Maintenance Mechanic Relationship Specialty Start Date End Date Leanne Perales MD [address] [facility] [place] [address] PCP - General 11/12/15 Facility Maintenance Mechanic Relationship Specialty Start Date End Date Leanne Perales MD [address] [facility] [place] [address] PCP - General 11/12/15 Facility Maintenance Mechanic Relationship Specialty Start Date End Date Leanne Perales MD [address] [facility] [place] [address] PCP - General 11/12/15 Facility Maintenance Mechanic Relationship Specialty Start Date End Date Leanne Perales MD [address] [place] [address] PCP - General 11/12/15 Facility Maintenance Mechanic Relationship Specialty Start Date End Date Leanne Perales [place] [address] PCP - General 11/12/15 Facility Maintenance Mechanic Relationship Specialty Start Date End Date Leanne Perales [place] [address] PCP - General 11/12/15 Facility Maintenance Mechanic Relationship Specialty Start Date End [place] [address] PCP - General 11/12/15 10/15/22 Cheryl Basilio MD [address] [place] [address] [address] [place] [address] PCP - General Internal Medicine 10/16/22 Facility Maintenance Mechanic Relationship Specialty Start Date End Date Leanne Perales MD [address] [place] [address] PCP - General 11/12/15 10/15/22 Cheryl Basilio MD [address] [place] [address] [address] [place] [address] PCP - General Internal Medicine 10/16/22 Facility Maintenance Mechanic Relationship Specialty Start Date End Date Cheryl Basilio MD [address] [place] [address] [address] [place] [address] PCP - General Internal Medicine 10/16/22 Facility Maintenance Mechanic Relationship Specialty Start Date End Date Cheryl Basilio MD [address] [facility] [address] [place] [address] PCP - General Internal Medicine 10/16/22 Facility Maintenance Mechanic Relationship Specialty Start Date End Date Cheryl Basilio MD [address] [facility] [address] [place] [address] PCP - General Internal Medicine 10/16/22 Facility Maintenance Mechanic Relationship Specialty Start Date End Date Cheryl Basilio MD [address] [facility] [address] [place] [address] PCP - General Internal Medicine 10/16/22 Facility Maintenance Mechanic Relationship Specialty Start Date End Date Cheryl Basilio MD [address] [facility] [address] [place] [address] PCP - General Internal Medicine 10/16/22 Facility Maintenance Mechanic Relationship Specialty Start Date End Date Cheryl Basilio MD [address] [facility] [address] [place] [address] PCP - General Internal Medicine 10/16/22 Facility Maintenance Mechanic Relationship Specialty Start Date End Date Cheryl Basilio MD [address] [facility] [address] [place] [address] PCP - General Internal Medicine 10/16/22 Facility Maintenance Mechanic Relationship Specialty Start Date End Date Cheryl Basilio MD [address] [facility] [address] [place] [address] PCP - General Internal Medicine 10/16/22 Facility Maintenance Mechanic Relationship Specialty Start Date End Date Cheryl Basilio MD [address] [place] [address] [address] [place] [address] PCP - General Internal Medicine 10/16/22 Ziggy Arauz MD [address] [place] [address] Consulting Physician Vascular Surgery 12/10/22 Facility Maintenance Mechanic Relationship Specialty Start Date End Date Cheryl Basilio MD [address] [place] [address] [address] [place] [address] PCP - General Internal Medicine 10/16/22 Ziggy Arauz MD [address] [place] [address] Consulting Physician Vascular Surgery 12/10/22 Facility Maintenance Mechanic Relationship Specialty Start Date End Date Cheryl Basilio MD [address] [place] [address] PCP - General Internal Medicine 10/16/22 Ziggy Arauz MD [address] [place] [address] Consulting Physician Vascular Surgery 12/10/22 Facility Maintenance Mechanic Relationship Specialty Start Date End Date Cheryl Basilio MD [address] [place] [address] [address] [place] [address] PCP - General Internal Medicine 10/16/22 Ziggy Arauz MD [address] [place] [address] Consulting Physician Vascular Surgery 12/10/22 Facility Maintenance Mechanic Relationship Specialty Start Date End Date Cheryl Basilio MD [address] [place] [address] [address] [place] [address] PCP - General Internal Medicine 10/16/22 Ziggy Arauz MD [address] [place] [address] Consulting Physician Vascular Surgery 12/10/22 Facility Maintenance Mechanic Relationship Specialty Start Date End Date Cheryl Basilio MD [address] [place] [address] [address] [place] [address] PCP - General Internal Medicine 10/16/22 Ziggy Arauz MD [address] [place] [address] Consulting Physician Vascular Surgery 12/10/22 Facility Maintenance Mechanic Relationship Specialty Start Date End Date Cheryl Basilio MD [address] [place] [address] [address] [place] [address] PCP - General Internal Medicine 10/16/22 Ziggy Arauz MD [address] [place] [address] Consulting Physician Vascular Surgery 12/10/22 Facility Maintenance Mechanic Relationship Specialty Start Date End Date Cheryl Basilio MD [address] [place] [address] [address] [place] [address] PCP - General Internal Medicine 10/16/22 Ziggy Arauz MD [address] [address] Consulting Physician Vascular Surgery 12/10/22 Facility Maintenance Mechanic Relationship Specialty Start Date End Date Cheryl Basilio MD [address] [facility] [address] [place] [address] PCP - General Internal Medicine 10/16/22 Ziggy Arauz MD [address] [place] [address] Consulting Physician Vascular Surgery 12/10/22 Facility Maintenance Mechanic Relationship Specialty Start Date End Date Cheryl Basilio MD [address] [facility] [address] [place] [address] PCP - General Internal Medicine 10/16/22 Ziggy Arauz MD [address] [place] [address] Consulting Physician Vascular Surgery 12/10/22 Facility Maintenance Mechanic Relationship Specialty Start Date End Date Cheryl Basilio MD [address] [facility] [address] [place] [address] PCP - General Internal Medicine 10/16/22 Ziggy Arauz MD [address] [facility] [address] [place] [address] Consulting Physician Vascular Surgery 12/10/22 Facility Maintenance Mechanic Relationship Specialty Start Date End Date Cheryl Basilio MD [address] [facility] [address] [place] [address] PCP - General Internal Medicine 10/16/22 Ziggy Arauz MD [address] [place] [address] Consulting Physician Vascular Surgery 12/10/22 Facility Maintenance Mechanic Relationship Specialty Start Date End Date Cheryl Basilio MD [address] [facility] [address] [place] [address] PCP - General Internal Medicine 10/16/22 Ziggy Arauz MD [address] [place] [address] Consulting Physician Vascular Surgery 12/10/22 Facility Maintenance Mechanic Relationship Specialty Start Date End Date Cheryl Basilio MD [address] [place] [address] [address] [place] [address] PCP - General Internal Medicine 10/16/22 Ziggy Arauz MD [address] [place] [address] Consulting Physician Vascular Surgery 12/10/22 Facility Maintenance Mechanic Relationship Specialty Start Date End Date Cheryl Basilio MD [address] [place] [address] [address] [place] [address] PCP - General Internal Medicine 10/16/22 Ziggy Arauz MD [address] [place] [address] Consulting Physician Vascular Surgery 12/10/22 Facility Maintenance Mechanic Relationship Specialty Start Date End Date Cheryl Basilio MD [address] [place] [address] [address] [place] [address] PCP - General Internal Medicine 10/16/22 Ziggy Arauz MD [address] [place] [address] Consulting Physician Vascular Surgery 12/10/22 Facility Maintenance Mechanic Relationship Specialty Start Date End Date Cheryl Basilio MD PCP - General Internal Medicine 10/16/22 Ziggy Arauz MD [address] [place] [address] Consulting Physician Vascular Surgery 12/10/22 Facility Maintenance Mechanic Relationship Specialty Start Date End Date Cheryl Basilio MD [address] [place] [address] PCP - General Internal Medicine 04/30/23 Ziggy Arauz MD [address] [place] [address] Consulting Physician Vascular Surgery 12/10/22 Team Status: [...] Provid er, Attending Provider, Referring Provider Active Facility Maintenance Mechanic Relationship Specialty Start Date End Date Silvestre Sexton [address] [place] [phone] PCP - General Internal Medicine 07/31/23 Ziggy Arauz MD [address] [place] [address] Consulting Physician Vascular Surgery 12/10/22 Facility Maintenance Mechanic Relationship Specialty Start Date End Date Silvestre Sexton [address] [place] [phone] PCP - General Internal Medicine 07/31/23 Ziggy Arauz MD [address] [facility] [address] [place] [address] Consulting Physician Vascular Surgery 12/10/22 Facility Maintenance Mechanic Relationship Specialty Start Date End Date Silvestre Sexton [address] [place] [phone] PCP - General Internal Medicine 07/31/23 Ziggy Arauz MD 95 [facility] [address] [place] [address] Consulting Physician Vascular Surgery 12/10/22 Facility Maintenance Mechanic Relationship Specialty Start Date End Date Leanne Perales MD [address] [place] [address] PCP - General 11/12/15 Facility Maintenance Mechanic Relationship Specialty Start Date End Date Leanne Perales MD [address] [place] [address] PCP - General 11/12/15 Facility Maintenance Mechanic Relationship Specialty Start Date End Date Leanne Perales MD [address] [place] [address] PCP - General 11/12/15 Facility Maintenance Mechanic Relationship Specialty Start Date End Date Leanne Perales MD [address] [place] [address] PCP - General 11/12/15 Facility Maintenance Mechanic Relationship Specialty Start Date End Date Leanne Perales MD [address] [place], [place] [address], [place] [address] PCP - General 11/12/15 Facility Maintenance Mechanic Relationship Specialty Start Date End Date Leanne Perales MD [address] [place], [place] [address], [place] [address] PCP - General 11/12/15 Facility Maintenance Mechanic Relationship Specialty Start Date End Date Leanne Perales MD [address] [place] [address] PCP - General 11/12/15 Facility Maintenance Mechanic Relationship Specialty Start Date End Date Leanne Perales MD [address] [place] [address] PCP - General 11/12/15 Facility Maintenance Mechanic Relationship Specialty Start Date End Date Leanne Perales MD [address] [place] [address] PCP - General 11/12/15 Team Status: Active Member Role Status Dates Dr. Justice Bailey , Primary Care Provider Active Team Status: Inactive Member Role Status Dates Sanjana Hale [employer] Primary Care Provider Active Start: February 25, 2024 End: February 25, 2024 Sanjana Hale [employer] Referring Provider Active S tart: February 25, 2024 End: February 25, 2024 David SHAFFER, PA Attending Provider Active Start: February 25, 2024 End: February 25, 2024 Team Status: Inactive Member Role Status Dates Sanjana Hale [employer] Primary Care Provider Active Start: March 18, 2024 End: March 18, 2024 Sanjana Hale [employer] Referring Provider Active S tart: March 18, 2024 End: March 18, 2024 EDMUND Jovel Attending Provider Active Star t: March 18, 2024 End: March 18, 2024 Team Status: Inactive Member Role Status Dates Sanjana Hale [employer] Referring Provider Active S tart: March 31, [...] 2024 End: July 17, 2024 Dr. Justice Baliey DO Referring Provider Active Start: July 17, [...] 2024 End: October 09, 2024 Xiomara Johnston [employer] Attending Provider Active Start: October 09, 2024 End: October 09, 2024 Xiomara Johnston [employer] Referring Provider Active Start: October 09, 2024 [...] 03, 2024 Dr. Ludy Luque [facility] Active Start: October 03, 2024 [...] pelvis w contrast Leanne Perales MD [address] [facility], [facility] [place] [address] Referral ID Status Reason Start Date Expiration Date V isits Requested Visits Authorized [id number] Authorized 08/29/2022 02/25/2023 1 1 Reason Comments COPD Reason Comments New Patient Est care Reason Comments Leg Pain Reason Onset Date Comments ER Follow-up 10/15/2022 Reason Comments Leg Pain Specialty Diagnoses / Procedures Referred By Contac t Referred To Contact Diagnoses Ambulatory dysfunction Acute deep vein thrombosis (DVT) of left lower extremity, unspecified vein (HCC) Procedures . Yared Allison MD [address] [facility] [address] [place] [address] [facility] Telemetry [address] [place] [address] Referral ID Status Reason Start Date Expiration Date Visits Re quested Visits Authorized [id number] 1 1 Reason Onset Date Comments Med [...] duplex bilateral Cheryl Basilio MD [address] [facility] [address] [place] [address] [facility] Cardiology [address] [place] [address] Referral ID Status Reason Start Date Expiration Date Visits Re quested Visits Authorized [id number] Closed 11/14/2022 05/13/2023 1 1 Reason Onset [...] Ziggy Arauz MD [address] [place] [address] Referral ID Status Reason Start Date Expiration Date Visits Re quested Visits Authorized [id number] Closed 12/10/2022 06/08/2023 1 1 Reason Onset [...] of unspecified iliac vein (HCC) [I82.529] Procedures NE PRQ TRANSLUMINAL MECHANICAL THROMBECTOMY VEIN NE OPEN/PERQ PLACEMENT INTRAVASCULAR STENT SAME 1ST LEFT ILIOFEMORAL DEEP VEIN THROMBOSIS, THROMBECTOMY AND STENTING TRANSCATHETER PLACEMENT OF AN INTRAVASCULAR STENT(S), OPEN OR PERCUTANEOUS INITIAL VEIN Ziggy Arauz MD [address] [place] [address] [address] [place] [address] Referral ID Status Reason Start Date Expiration Date Visits Re quested Visits Authorized [id number] 1 1 Reason Comments Post-op Problem Surgery [...] IV contrast Rocio Calix MD [address] [facility] [address] [place] [address] Referral ID Status Reason Start Date Expiration Date Visits Re quested Visits Authorized [id number] Closed 07/31/2023 07/30/2024 1 1 Reason Comments [...] (Synthroid, Levoxyl) 100 MCG tablet [id number] - [place], [place] - [facility] [address] Pt leaving to go out [...] (See Alternative - Provider: Monique Souza, GARY) ondansetron (Zofran) injection 4 mg(Linked [...] this does not improve please contact your erp business analyst [phone] ([phone] (Due) famotidine (Pepcid) tablet 20 [...] does not have iv access. 0854 ([facility] - Prov ider: Disha Chen RN) PRN [...] on Sat12/25/22 at 1402, Intraprocedure 1402 ([facility] ider: Ziggy Arauz MD) labetalol (Normodyne,Trandate) injection [...] section and content) DATE CREATED AUTHOR 12/01/2021 [facility] [employer] DATE CREATED AUTHOR AUTHOR'S ORGANIZ ATION 12/07/2021 [facility] [employer] DATE CREATED AUTHOR AUTHOR'S ORGANIZ ATION 09/28/2022 [facility] ([place]) DATE CREATED AUTHOR AUTHOR'S ORGANIZ ATION 11/26/2023 [facility] [employer] [facility] DATE CREATED AUTHOR AUTHOR'S ORGANIZ ATION 04/27/2024 [facility] DATE CREATED AUTHOR AUTHOR'S ORGANIZ ATION 12/20/2024 [facility] Ordered Prescriptions (unrec ognized section and content) [...] BE BASED ON THE PRIMARY CLINICAL RECORDS. [facility]. provides no warranty or guarantee of the accuracy or completeness of information in this document.
[2025-02-06 09:28] LABS: Hematocrit 52.8 % (40-54); Hemoglobin 17.2 g/dL (13.0-16.5); Immature Granulocytes Count 0.160 X10^3/uL (0.0-0.0); Mean Corp Hgb Conc 32.6 g/dL (32-36); Mean Corpuscular Volume 94.8 fL (80-94); Mean Platelet Vol. 9.2 fl (6.2-12.0); NRBC Flagged by Analyzer 0 % (0-5); Platelet Count 270 K/mm3 (150-450); RBC Distribution Width CV 14.0 % (11.6-14.6); RBC Distribution Width SD 49.1 fl (35.1-43.9); Red Blood Count 5.57 M/mm3 (4.6-6.2); White Blood Count 9.1 K/mm3 (4.4-11.0)
[2025-02-06 09:31] LABS: Color, Urine Yellow (Yellow); Glucose, Dipstick Normal (Normal); Ketone-Dipstick Negative (Negative); Leukocyte Esterase-Dipstick Negative /ul (Negative); Nitrite-Dipstick Negative (Negative); Occult Blood-Urine Negative /ul (Negative); Protein-Dipstick Negative (Negative); Specific Gravity, Urine 1.020 (1.002-1.030); Urine Bilirubin Dipstick Negative (Negative)
[2025-02-06 09:42] LABS: Squamous Epithelial Cells - UA 0-5 SEEN /hpf (0-5)
[2025-02-06 10:15] LABS: AST(SGOT) 26 U/L (<=37); Alanine Aminotransfer ALT/SGPT 26 U/L (<=46); Albumin, Serum 4.4 g/dL (3.4-4.8); Alkaline Phosphatase 62 U/L (40-129); Anion Gap 11 (5-15); BUN 21 mg/dL (4-19); BUN/Creat Ratio 16.9 RATIO (10-20); Calcium,Total 10.7 mg/dL (7.6-11.0); Carbon Dioxide 23.1 mmol/L (21.0-32.0); Chloride 105 mmol/L (98-108); Globulin 2.9 g/dL (2.2-4.2); Glucose 151 mg/dL (70-99); Potassium 4.5 mmol/L (3.3-5.1)
== END | disposition home or self-care (01) ==
LOC: LAB 09:07
PROVIDERS: PCP Family Medicine; Referring Provider Nurse Practitioner Family; Visit Provider Nurse Practitioner Family
DX: R10.9 Unspecified abdominal pain (principal); N23 Unspecified renal colic
CPT/HCPCS: 36415; 80053; 81001; 83036; 85025

== ENCOUNTER → 2025-02-17 | Outpatient (CLI) | payer OTHER, SELFPAY ==
--- NOTE | 2025-02-17 12:06 | CT_ITS ---
PROCEDURE: ABDOMEN/PELVIS WITH CONTRAST 02/17/2025 REASON FOR EXAM: ABDOMINAL PAIN TECHNIQUE: Procedure Code: [id number] Modality: CT Procedure: ABDOMEN/PELVIS WITH CONTRAST Coronal and Sagittal reconstruction series were provided. CONTRAST: Isovue 370 VOLUME: 99 mL One or more dose reduction techniques were used (e.g., Automated exposure control, adjustment of the mA and/or kV according to patient size, use of iterative reconstruction technique. RADIATION DOSE SUMMARY: CTDlvol: 23.84 mGy DLP: 1381.88 mGycm COMPARISON: 9.8.2024 FINDINGS: The liver is normal in size. Stable diffuse fatty infiltration of the liver. There are no focal enhancing liver lesions. No intra- or extrahepatic biliary duct dilatation is identified. The hepatic vasculature is patent. Cholecystecomy clips are again seen. The spleen, pancreas, and adrenal glands are unremarkable. The kidneys are normal in size and attenuation with lobulated contour. There is no hydronephrosis or perinephric fat stranding. No sizable renal calculi are identified. Stable small bilateral simple renal cortical cysts. The ureters are normal in caliber and no ureteral calculi are seen. There is newly seen diffuse gastric pylorus and duodenal circumferential wall thickening suggesting gastroduodenitis, recommend clinical correlation. No other focal or diffuse bowel wall thickening or bowel obstruction is identified. The appendix is unremarkable. Occasional diverticula are seen arising from the sigmoid colon. Radiodense clips of prior interventions are also seen related to the sigmoid colon. The abdominal aorta and its branches demonstrate atheromatous calcification without evidence of aneurysm. The inferior vena cava appears unremarkable. Again is noted left iliac veins stent. No adenopathy is seen. No free intraperitoneal fluid, fluid collection or free air is identified. The urinary bladder is partially distended and showed no stones or mass. No pelvic mass noted No aggressive-appearing osseous lesions are identified. Mild degenerative changes are present in the spine. The included lower chest cuts show no gross abnormalities. CT/Abdomen/Pelvis WITH Contrast IMPRESSION: No acute abnormalities seen. Fatty liver, unchanged. Newly seen diffuse gastric pylorus and duodenal circumferential wall thickening suggesting gastroduodenitis, recommend clinical correlation. Reading Location: [place] [address]
--- OUTSIDE RECORDS SUMMARY | 2025-02-17 12:10 | XMS RPT_ITS | CCD ---
Author Organization [facility] CliniSyhi Care Team Providers Care Environmental Consultant Name Role Phone Leanne Perales Primary Care Provider [phone] Leanne Perales Primary Care Unavailable PROVIDER, UNKNOWN [...] Cheryl Basilio MD Primary Care Provider [phone] Ziggy Arauz MD Unavailable Dr. Ryan Ceja Attending Provider [phone] Ryan Ceja Admit Provider Dr. Ryan Ceja Referring Provider [phone] Ryan Ceja Other Provider CHERYL BASILIO Primary Care Provider Dr. Fabio Day Other Provider EDMUND Clarke Attending Provider [phone] Ryan Ceja Referring Provider Dr. Janette King Attending Provider RUBI Hale Attending Provider [phone] Cheryl Basilio MD Primary Care Provider [phone] Cheryl Basilio MD Primary Care Provider Dr. [...] Attending Unavailable CHERYL BASILIO Attending Unavailable CHERYL BSAILIO Primary Care Unavailable ZIGGY ARAUZ Attending Unavailable [...] Unavailable KJ, CHERYL Primary Care Unavailable ALEXIA CHINCHILLAN-CLINICAL PROJECT LEADER, SANJANA M Primary Care Physician BASIM RAMSEY MD Attending Unavaila laurent HALE MANAGER CLIENT SERVICE-CLINICAL PROJECT LEADER, SANJANA M Primary Care Lizz HALE APRN-CLINICAL PROJECT LEADER, SANJANA M Primary Care BASIM Thibodeaux MD Attending Unavaila laurent Hale GREASE BUFFER-C, Sanjana Primary Care Provider Alexia GREASE BUFFER-C, Sanjana Referring Provider [phone] David Piña Attending Provider Dolly Stewart Attending Provider [phone] Justice Bailey DO Primary Care Provider Dr. Justice Bailey DO Attending Provider [phone] Dolly Stewart Referring Provider [phone] Ryan Ceja MD Attending Provider [phone] Yolanda Yates Attending Provider [phone] Justice Bailey DO Referring Provider Stanislaw Thomas Attending Provider [phone] Dolly Stewart Attending Provider [phone] Justice Bailey DO Primary Care [...] Dr. [place] Attending Provider Unavailab le Keshiaerer GREASE BUFFER-C, Xiomara Attending Provider [phone] Ungerer GREASE BUFFER-C, Xiomara Referring Provider [phone] Leo LOAIZA, Dr. [...] [place] [facility] Physici an Unavailable Ungerer GREASE BUFFER-C, Xiomara Attending Physician Sherry Woo Attending Physician [...] Care Unavailable Brown, Justice R Referring Unavailable yRan Ceja Attending Unavailable Brown, Justice R Primary [...] Allergy 5 Nausea And Vomiting, Vomiting (disorder) [facility], [place] (1 source) Meperidine Drug Allergy 5 [facility] Repository Medications Current Medications Medication Drug Class(es) [...] dose Verified by pharmacy, 10-13-22, Adolfo Hutton [facility] Start: 08-22-2022 End: 07-17-2024 take 1 [...] Active docusate sodium 50 mg / sennosides, longterm 8.6 mg oral tablet (4 sources) Start: [...] (MACROBID) 100 MG capsule polyethylene glycol 3350 84812 mg powder for oral solution (6 sources) [...] qAM, # 75 gram(s), 1 Refill(s), Pharmacy: [id number], Low testosterone, 187.9, cm, 01/09/24 [...] Onset: 3 10-12-2022 Episodic Comment on above: [facility] TRIED TO REMOVE IN 11/2022, UNSUCCESSFUL [...] Facility Orthopedic Visit Reporton Orthopedic Visit Report [facility] [address] [place] [address] OFFICE VISIT Date of Service: 12/02/24 MR#: [id number] Acct: [id number] Name: CORRIE QUEEN Rep #: [id number] : 1960 Provider: EDMUND Almanza Age/Sex: 64/M Location: [facility] Status: Signed Intake Vital Signs 11/09/24 09:23 [...] He states that he went to the [place] ER about a month ago for his lower back. When he went in to the ER, they checked his kidneys, instead of his back. They took xrays on his lower back. He states that he would like to go over the xrays t (more content not included)... Normal [facility] Spine Lumbar (Routine)on Spine Lumbar (Routine) [facility] Imaging Services [address] [place] [address] Spine Lumbar (Routine) MR#: [id number] Acct: [id number] Name: CORRIE QUEEN Rep #: [id number] : 1960 M 64 From: Guy Celestin MD PCP: Dr. Justice Bailey, DO Status: REG CLI Study: Spine Lumbar (Routine) Date of Exam: 11/23/24 Exam# [id number] Ordering Dr: Sherry Venegas PROCEDURE: MRI SPINE [...] at L4-5, and right L5-S1. Reading Location: [facility] CC: EDMUND Almanza; Dr. Justice Baiely DO Leadite Man: Signed Normal [facility] L/S Spine Bending Flex/[place]ennessey 11-09-2024 L/S Spine Bending Flex/Ext [facility] Services [address] [place] [address] L/S Spine Bending Flex/Ext MR#: [id number] Acct: [id number] Name: CORRIE QUEEN Rep #: [id number] : 1960 M 64 From: Dwaine Elmore MD PCP: Dr. Justice Bailey DO Status: DEP AMB Study: L/S Spine Bending Flex/Ext Date of Exam: 11/09 Exam# [id number] Ordering Dr: Sherry Venegas PROCEDURE: L/S SPINE [...] changes without acute bony abnormalities. Reading Location: [facility] CC: EDMUND Almanza; Dr. Justice Bailey, Leadite Man: Signed Normal [facility] Orthopedic Visit Reporton Orthopedic Visit Report [facility] [address] [place] [address] [place] [address] OFFICE VISIT Date of Service: 11/09/24 MR#: [id number] Acct: [id number] Name: CORRIE QUEEN Rep #: [id number] : 1960 Provider: EDMUND Almanza Age/Sex: 64/M Location: [facility] Status: Signed Intake Vital Signs 10/08/24 09:03 [...] He states that he went to the [place] ER about a month ago for his [...] had 2 herniated disc. He went to [facility] for it, and gave [...] states that (more content not included)... Normal [facility] L/S Spine Min [address] [facility] 09-25 L/S Spine Min 4 Views [facility] Imaging Services [address] [place] [address] L/S Spine Min 4 Views MR#: [id number] Acct: [id number] Name: CORRIE QUEEN Rep #: [id number] : 1960 M 64 From: Julio Cesar castañeda MD PCP: Dr. Justice Bailey, DO Status: REG CLI Study: L/S Spine Min 4 Views Date of Exam: 10/09/24 Exam# [id number] Ordering Dr: Xiomara Johnston PROCEDURE: L/S SPINE [...] and spondylosis. Facet joint osteoarthritis. Reading Location: [facility] CC: RUBI Johnston; Dr. Justice Bailey DO Leadite Man: Signed Normal [facility] Internal Medicine Office Vis iton 10-08-2024 Internal Medicine Office Visit [facility] [address] [place] [address] [place] [address] OFFICE VISIT Date of Service: 10/08/24 MR#: [id number] Acct: [id number] Name: CORRIE QUEEN Rep #: [id number] : 1960 Provider: RUBI valles Age/Sex: 64/M Location: [facility] Status: Signed Intake Vital Signs 10/03/24 10:33 [...] Visit Reasons: Lower back pain. Hip Pain Superintendent Distribution Required: No Is patient in pain?: Yes [...] bladder control, or weakness in legs. . [facility] Medical History Hypercalcemia Hypothyroidism due [...] some h (more content not included)... Normal [facility] Abdomen/Pelvis W IV Cont ONL Yon 10-03-2024 Abdomen/Pelvis W IV Cont ONLY [facility] Imaging Services [address] [place] [address] Abdomen/Pelvis W IV Cont ONLY MR#: [id number] Acct: [id number] Name: CORRIE QUEEN Rep #: [id number] : 1960 M 64 From: Dwaine Elmore MD PCP: Dr. Justice Bailey, DO Status: [facility] ER Study: Abdomen/Pelvis W IV Cont ONLY Date of Exam: Exam# [id number] Ordering Dr: Ludy Luque MD PROCEDURE: ABDOMEN/PELVIS [...] abnormalities. Liver steatosis and hepatomegaly. Reading Location: [facility] CC: Dr. Justice Bailey DO; Dr. Ludy Luque MD Leadite Man: Signed Normal [facility] Absolute lymphocyte countOrd ered By: Ludy Luque on 10-03-2024 Lymphocytes Auto (Unsp spec) [#/Vol] 2.53 10*3/uL 0.83-4.51 [facility] Absolute neutrophil countOrd ered By: Ludy Luque on 10-03-2024 Neutrophils (Bld) [#/Vol] 4.4 10*3/uL 2.0-7.7 [facility] Anion gap in Serum or Plasma Ordered By: Ludy Luque on 10-03-2024 Anion gap [Moles/Vol] 10 mmol/L 5-15 [facility] [place] [facility] Automated lymphocyte count a s percentage of total leukocytesOrdered By: Ludy Luque on 10-03-2024 Lymphocytes/100 WBC Auto (Unsp spec) 32.4 % 19-41 [facility] BUN/creatinine ratioOrdered By: Ludy Luque on 10-03-2024 Urea nitrogen/Creatinine [Mass ratio] 14.9 mg/mg 10-20 [facility] Basophil percentageOrdered B y: Ludy Luque on 10-03-2024 Basophils/100 WBC (Bld) 0.9 % 0-[address] [facility] Bilirubin Test strip Ql (U)O rdered By: Ludy Luque on 10-03-2024 Bilirubin Ql (U) Negative Negative [facility] Bilirubin, totalOrdered By: Ludy Luque on 10-03-2024 Bilirubin [Mass/Vol] 0.40 mg/dL 0.00-1.30 [facility] CBC W/Diff, Automatedon 08 Absolute Lymph 2.53 X10 3/uL Normal 0.83-4.51 [facility] Comment on above: Performed By: #### L 100.0100 #### [facility] [address] [place], [address] Absolute Neut 4.4 X10 3/uL Normal 2.0-7.7 [facility] Comment on above: Performed By: #### L 100.0100 #### [facility] [address] [place], [address] Basophils/100 WBC (Bld) 0.9 % Normal 0-[address] [facility] Comment on above: Performed By: #### L 100.0100 #### [facility] [address] [place], [address] Eosinophils/100 WBC (Bld) 2.3 % Normal 0-5 [facility] Comment on above: Performed By: #### L 100.0100 #### [facility] [address] [place], [address] Erythrocyte distribution width (RBC) [Ratio] 14.9 % High 11.6-14.6 [facility] Comment on above: Performed By: #### L 100.0100 #### [facility] [address] [place], [address] Hematocrit (Bld) [Volume fraction] 52.0 % Normal 40-54 [facility] Comment on above: Performed By: #### L 100.0100 #### [facility] [address] [place], [address] Hemoglobin (Bld) [Mass/Vol] 17.9 g/dL High 13.0-16.5 [facility] Comment on above: Performed By: #### L 100.0100 #### [facility] [address] [place], [address] IG% 0.600 Normal 0.0-0.9 [facility] Comment on above: Result Comment: IG% - Immature Granulocytes (promyelocytes, myelocytes and metamyelocytes) > 1% indicates that a LEFT SHIFT is Present. Performed By: #### L 100.0100 #### [facility] [address] [place], [address] Lymphocytes/100 WBC (Bld) 32.4 % Normal 19-41 [facility] Comment on above: Performed By: #### L 100.0100 #### [facility] [address] [place], [address] MCH (RBC) [Entitic mass] 31.1 pg Normal 27.0-32.0 [facility] Comment on above: Performed By: #### L 100.0100 #### [facility] [address] [place], [address] MCHC (RBC) [Mass/Vol] 34.4 g/dL Normal 32-36 [facility] [place] [facility] Comment on above: Performed By: #### L 100.0100 #### [facility] [address] [place], [address] MCV (RBC) [Entitic vol] 90.3 fL Normal 80-94 [facility] Comment on above: Performed By: #### L 100.0100 #### [facility] [address] [place], [address] Monocytes/100 WBC (Bld) 6.9 % Normal 0-10 [facility] Comment on above: Performed By: #### L 100.0100 #### [facility] [address] [place], [address] Neutrophils/100 WBC (Bld) 56.9 % Normal 47-70 [facility] Comment on above: Performed By: #### L 100.0100 #### [facility] [address] [place], [address] Nucleated RBC (Bld) [#/Vol] 0 10*3/uL Normal 0-5 [facility] Comment on above: Performed By: #### L 100.0100 #### [facility] [address] [place], [address] Platelet mean volume (Bld) [Entitic vol] 9.6 fL Normal 6.2-12.0 [facility] Comment on above: Performed By: #### L 100.0100 #### [facility] [address] [place], [address] Platelets (Bld) [#/Vol] 226 10*3/uL Normal 150-450 [facility] Comment on above: Performed By: #### L 100.0100 #### [facility] [address] [place], [address] RBC (Bld) [#/Vol] 5.76 10*6/uL Normal 4.6-6.2 [facility] Comment on above: Performed By: #### L 100.0100 #### [facility] [address] [place], [address] RDW SD 49.4 fl High 35.1-43.9 [facility] Comment on above: Performed By: #### L 100.0100 #### [facility] [address] [place], [address] WBC (Bld) [#/Vol] 7.8 10*3/uL Normal 4.4-11.0 [facility] Comment on above: Performed By: #### L 100.0100 #### [facility] [address] [place], [address] Carbon dioxide, total [Moles /volume] in Central venous bloodOrdered By: Ludy Luque on 10-03-2024 CO2 [Moles/Vol] 21.5 mmol/L 21.0-32.0 [facility] Chloride assayOrdered By: Kelvin Luque on 10-03-2024 Chloride [Moles/Vol] 104 mmol/L 98-108 [facility] Comprehensive Metabolic Prof ilon 10-03-2024 Albumin [Mass/Vol] 4.4 g/dL Normal 3.4-4.8 [facility] Comment on above: Performed By: #### L 500.4050, L501.2450 #### [facility] [address] [place], [address] Albumin/Globulin [Mass ratio] 1.5 {ratio} Normal 0.9-2.4 [facility] Comment on above: Performed By: #### L 500.4050, L501.2450 #### [facility] [address] [place], [address] ALK PHOS 80 U/L Normal 40-129 [facility] Comment on above: Performed By: #### L 500.4050, L501.2450 #### [facility] [address] [place], [address] ALT [Catalytic activity/Vol] 28 U/L Normal <=46 [facility] Comment on above: Performed By: #### L 500.4050, L501.2450 #### [facility] [address] [place], [address] AST [Catalytic activity/Vol] 29 U/L Normal <=37 [facility] Comment on above: Performed By: #### L 500.4050, L501.2450 #### [facility] [address] [place], [address] Bilirubin [Mass/Vol] 0.40 mg/dL Normal 0.00-1.30 [facility] Comment on above: Performed By: #### L 500.4050, L501.2450 #### [facility] [address] [place], [address] BUN/CRE 14.9 RATIO Normal 10-20 [facility] Comment on above: Performed By: #### L 500.4050, L501.2450 #### [facility] [address] [place], [address] Calcium [Mass/Vol] 10.8 mg/dL Normal 7.6-11.0 [facility] Comment on above: Performed By: #### L 500.4050, L501.2450 #### [facility] [address] [place], [address] Chloride [Moles/Vol] 104 mmol/L Normal 98-108 [facility] Comment on above: Performed By: #### L 500.4050, L501.2450 #### [facility] [address] [place], [address] CO2 [Moles/Vol] 21.5 mmol/L Normal 21.0-32.0 [facility] Comment on above: Performed By: #### L 500.4050, L501.2450 #### [facility] [address] [place], [address] Creatinine [Mass/Vol] 1.02 mg/dL Normal 0.70-1.20 [facility] [place] [facility] Comment on above: Performed By: #### L 500.4050, L501.2450 #### [facility] [address] [place], [address] ECRCL 96.38 ml/min Normal 50-250 [facility] Comment on above: Performed By: #### L 500.4050, L501.2450 #### [facility] [address] [place], [address] GAP 10 Normal 5-15 [facility] Comment on above: Performed By: #### L 500.4050, L501.2450 #### [facility] [address] [place], [address] GFR/1.73 sq M.predicted among non-blacks MDRD (S/P/Bld) [Vol rate/Area] 83 mL/min/{1.73_m2} Normal >60 [facility] Comment on above: Result Comment: mL/m in/1.73m2 CKD-EPI Creatinine Equation (2020) Performed By: #### L 500.4050, L501.2450 #### [facility] [address] [place], [address] Globulin (S) [Mass/Vol] 3.1 g/dL Normal 2.2-4.2 [facility] Comment on above: Performed By: #### L 500.4050, L501.2450 #### [facility] [address] [place], [address] Glucose [Mass/Vol] 97 mg/dL Normal 70-99 [facility] Comment on above: Performed By: #### L 500.4050, L501.2450 #### [facility] [address] [place], [address] Potassium [Moles/Vol] 4.5 mmol/L Normal 3.3-5.1 [facility] [place] [facility] Comment on above: Performed By: #### L 500.4050, L501.2450 #### [facility] [address] [place], [address] Sodium [Moles/Vol] 136 mmol/L Normal 133-145 [facility] Comment on above: Performed By: #### L 500.4050, L501.2450 #### [facility] [address] [place], [address] T PROT 7.5 g/dL Normal 5.9-8.4 [facility] Comment on above: Performed By: #### L 500.4050, L501.2450 #### [facility] [address] [place], [address] Urea nitrogen [Mass/Vol] 15 mg/dL Normal 4-19 [facility] Comment on above: Performed By: #### L 500.4050, L501.2450 #### [facility] [address] [place], [address] Emergency Department Summary on 10-03-2024 Emergency Department Summary [facility] Medical Records Department [address] [place] [address] Emergency Department Summary 10/03/24 MR#: [id number] Acct: [id number] Name: CORRIE QUEEN Rep #: [id number] : 1960 64 From: Ludy Luque MD [...] anesthesia, numbness or weakness in his legs. [facility] Medical History Hypercalcemia Hypothyroidism due [...] Vital Signs: (more content not included)... Normal [facility] Eosinophil percentageOrdered By: Ludy Luque on 10-03-2024 Eosinophils/100 WBC (Bld) 2.3 % 0-5 [facility] Erythrocyte distribution wid th ratioOrdered By: Ludy Luque on 10-03-2024 Erythrocyte distribution width (RBC) [Ratio] 14.9 % High 11.6-14.6 [facility] Erythrocyte distribution wid th standard deviationOrdered By: Ludy Luque on 10-03-2024 Erythrocyte distribution width (RBC) [Ratio] 49.4 fl High 35.1-43.9 [facility] Glomerular filtration rate ( GFR) estimation/1.73 sq m using serum, plasma, or whole bOrdered By: Ludy Luque on 10-03-2024 GFR/1.73 sq M.predicted among non-blacks MDRD (S/P/Bld) [Vol rate/Area] 83 mL/min/{1.73_m2} >60 [facility] Comment on above: mL/min/1.73m2 CKD-EP I Creatinine Equation (2020) Hematocrit Auto (Bld) [Volum e fraction]Ordered By: Ludy Luque on 10-03-2024 Hematocrit (Bld) [Volume fraction] 52.0 % 40-54 [facility] Hemoglobin measurementOrdere d By: Ludy Luque on 10-03-2024 Hemoglobin (Bld) [Mass/Vol] 17.9 g/dL High 13.0-16.5 [facility] Immature granulocytes/100 WB C Auto (Bld)Ordered By: Ludy Luque on 10-03-2024 Immature granulocytes/100 WBC (Bld) 0.600 % 0.0-0.9 [facility] Comment on above: IG% - Immature Granu locytes (promyelocytes, myelocytes and metamyelocytes) > 1% indicates that a LEFT SHIFT is Present. Ketones Test strip Ql (U)Ord ered By: Ludy Luque on 10-03-2024 Ketones Ql (U) Negative Negative [facility] Laboratory - Chemistry and C hemistry - challengeOrdered By: Ludy Luque on 10-03-2024 AST [Catalytic activity/Vol] 29 U/L <38 [facility] Lipaseon 10-03-2024 Lipase [Catalytic activity/Vol] 27 U/L Normal 13-75 [facility] Comment on above: Result Comment: Plea se note: LIPASE revised reference range effective 22. New Lipase methodology. Expected to produce lower values than the previous assay method. NEW Reference Range: 13 - 75 U/L Performed By: #### L 500.4050, L501.2450 #### [facility] [address] [place], [address] Lipase measurementOrdered By : Ludy Luque on 10-03-2024 Lipase [Catalytic activity/Vol] 27 U/L 13-75 [facility] Comment on above: Please note:LIPASE r evised reference range effective 22. New Lipase methodology. Expected to produce lower values than the previous assay method. NEW Reference Range: 13 - 75 U/L MCV (mean corpuscular volume ) determinationOrdered By: Ludy Luque on 10-03-2024 MCV (RBC) [Entitic vol] 90.3 fL 80-[address] [facility] Mean corpuscular hemoglobin (MCH) determinationOrdered By: Ludy Luque on 10-03-2024 MCH (RBC) [Entitic mass] 31.1 pg 27.0-32.0 [facility] Mean corpuscular hemoglobin concentration (MCHC) determinationOrdered By: Ludy Luque on 10-03-2024 MCHC (RBC) [Mass/Vol] 34.4 g/dL 32-36 [facility] [place] [facility] Mean platelet volume determi nationOrdered By: Ludy Luque on 10-03-2024 Platelet mean volume (Bld) [Entitic vol] 9.6 fL 6.2-12.0 [facility] Microscopic analysis of urin e for red blood cells (RBC)Ordered By: Ludy Luque on 10-03-2024 Microscopic analysis of urine for red blood cells (RBC) 0 SEEN /hpf 0-5 [facility] Monocyte percentageOrdered B y: Ludy Luque on 10-03-2024 Monocytes/100 WBC (Bld) 6.9 % 0-[address] [facility] Mucus LM Ql (Urine sed)Order ed By: Ludy Luque on 10-03-2024 Mucus Ql (Urine sed) 0 SEEN /hpf [facility] [place] [facility] Neutrophil percentageOrdered By: Ludy Luque on 10-03-2024 Neutrophils/100 WBC (Bld) 56.9 % 47-70 [facility] Nitrite Test strip Ql (U)Ord ered By: Ludy Luque on 10-03-2024 Nitrite Ql (U) Negative Negative [facility] Nucleated red blood cell per centageOrdered By: Ludy Luque on 10-03-2024 Nucleated RBC/100 WBC (Bld) [Ratio] 0 % 0-5 [facility] Platelet countOrdered By: Kelvin Luque on 10-03-2024 Platelets (Bld) [#/Vol] 226 10*3/uL 150-450 [facility] Potassium measurement (mass/ volume)Ordered By: Ludy Luque on 10-03-2024 Potassium (Unsp spec) [Mass/Vol] 4.5 mmol/L 3.3-5.1 [facility] Protein Test strip Ql (U)Ord ered By: Ludy Luque on 10-03-2024 Protein Ql (U) Negative Negative [facility] RBC Auto (Bld) [#/Vol]Ordere d By: Ludy Luque on 10-03-2024 RBC (Bld) [#/Vol] 5.76 10*6/uL 4.6-6.2 [facility] Serum creatinine measurement (mass/volume)Ordered By: Ludy Luque on 10-03-2024 Creatinine [Mass/Vol] 1.02 mg/dL 0.70-1.20 [facility] [place] [facility] Serum globulin measurementOr dered By: Ludy Luque on 10-03-2024 Globulin (S) [Mass/Vol] 3.1 g/dL 2.2-4.[address] [facility] Serum glucose measurement (m ass/volume)Ordered By: Ludy Luque on 10-03-2024 Glucose [Mass/Vol] 97 mg/dL 70-99 [facility] Serum or plasma alanine koo otransferase (ALT) measurementOrdered By: Ludy Luque on 10-03-2024 ALT [Catalytic activity/Vol] 28 U/L <47 [facility] Serum or plasma albumin jamila urement (mass/volume)Ordered By: Ludy Luque on 10-03-2024 Albumin [Mass/Vol] 4.4 g/dL 3.4-4.8 [facility] Serum or plasma albumin/glob ulin mass ratioOrdered By: Ludy Luque on 10-03-2024 Albumin/Globulin [Mass ratio] 1.5 {ratio} 0.9-2.4 [facility] Serum or plasma alkaline nohemi sphatase measurementOrdered By: Ludy Luque on 10-03-2024 ALP [Catalytic activity/Vol] 80 U/L 40-129 [facility] Serum or plasma calcium jamila urement (mass/volume)Ordered By: Ludy Luque on 10-03-2024 Calcium [Mass/Vol] 10.8 mg/dL 7.6-11.0 [facility] Serum or plasma urea nitroge n measurement (mass/volume)Ordered By: Ludy Luque on 10-03-2024 Urea nitrogen [Mass/Vol] 15 mg/dL 4-19 [facility] Sodium levelOrdered By: Ryan Luque on 10-03-2024 Sodium [Moles/Vol] 136 mmol/L 133-145 [facility] Squamous epithelial cells de tection in urine sediment by light microscopyOrdered By: Ludy Luque on 10-03-2024 Epithelial cells.squamous LM Ql (Urine sed) 5-10 SEEN /hpf 0-5 [facility] Total proteinOrdered By: uSzette Luque on 10-03-2024 Protein [Mass/Vol] 7.5 g/dL 5.9-8.4 [facility] Urinalysis, Completeon 10-03 EPI,SQUAMOUS 5-10 SEEN Normal 0-5 [facility] Comment on above: Order Comment: CLEAN CATCH Performed By: #### L 400.0001 #### [facility] [address] [place], [address] BACTERIA 0 SEEN Normal None Seen [facility] Comment on above: Order Comment: CLEAN CATCH Performed By: #### L 400.0001 #### [facility] [address] [place], [address] Mucus Ql (Urine sed) 0 SEEN Normal [facility] Comment on above: Order Comment: CLEAN CATCH Performed By: #### L 400.0001 #### [facility] [address] [place], [address] RBC 0 SEEN Normal 0-5 [facility] Comment on above: Order Comment: CLEAN CATCH Performed By: #### L 400.0001 #### [facility] [address] [place], [address] WBC 0 SEEN Normal 0-5 [facility] Comment on above: Order Comment: CLEAN CATCH Performed By: #### L 400.0001 #### [facility] [address] [place], [address] Urine clarityOrdered By: Suzette Luque on 10-03-2024 Clarity (U) Clear Clear [facility] Urine color determinationOrd ered By: Ludy Luque on 10-03-2024 Color (U) Yellow Yellow [facility] Urine glucose detectionOrder ed By: Ludy Luque on 10-03-2024 Glucose Ql (U) Normal mg/dl Normal [facility] Urine leukocyte esterase det ection by dipstickOrdered By: Ludy Luque on 10-03-2024 Leukocyte esterase Test strip Ql (U) Negative Negative [facility] Urine pHOrdered By: Ludy butts on 10-03-2024 pH (U) 6.0 [pH] 5.0 - 8.0 [facility] Urine sediment bacteria coun t by microscopy (number/high power field)Ordered By: Ludy Luque on 10-03-2024 Bacteria LM.HPF (Urine sed) [#/Area] 0 /[HPF] None Seen [facility] Urine specific gravity measu rementOrdered By: Ludy Luque on 10-03-2024 Specific gravity (U) [Rel density] 1.020 1.002-1.030 [facility] Urine urobilinogen measureme ntOrdered By: Ludy Luque on 10-03-2024 Urobilinogen Ql (U) Normal mg/dl Normal [facility] White blood cell (WBC) count Ordered By: Ludy Luque on 10-03-2024 WBC (Bld) [#/Vol] 7.8 10*3/uL 4.4-11.0 [facility] White blood cell countOrdere d By: Ludy Luque on 10-03-2024 White blood cell count 0 SEEN /hpf 0-[address] [facility] Internal Medicine Office Vis iton 08-11-2024 Internal Medicine Office Visit [facility] [address] [place], [place] [address] OFFICE VISIT Date of Service: 08/11/24 MR#: [id number] Acct: [id number] Name: CORRIE QUEEN Rep #: [id number] [...] Performing Provider: Justice Bailey DO Performing Location: [facility] Administered by: Estefany Gonzalez MA on 08/11/24 16:48 Dose Route Admin Location Dispensed Lot Number Expiration Date [place] Man ufacturer 40 mg IM RGM 1 mL [id number] 05/26/25 8924-5453-48 [facility] SQUIBB Date cc: * Signed Intake [...] RIGHT Chief Complaint: eyes pressure and congestion Superintendent Distribution Required: No Accompanied by: Self Is patient [...] of breath, (more content not included)... Normal [facility] Abdomen/Pelvis without Conto n 08-02-2024 Abdomen/Pelvis without Cont [facility] Imaging Services [address] [place] [address] Abdomen/Pelvis without Cont MR#: [id number] Acct: [id number] Name: CORRIE QUEEN Rep #: [id number] : 1960 M 63 From: Geovani montano MD PCP: Dr. Justice Bailey, DO Status: REG ER Study: Abdomen/Pelvis without Cont Date of Exam: 10/19 Exam# [id number] Ordering Dr: Rusty Hawkins DO PROCEDURE: ABDOMEN/PELVIS [...] 2. Hepatosplenomegaly and diffuse steatosis. [facility] CC: Dr. Justice Bailey, DO; Dr. Rusty Hawkins, DO Leadite Man: Signed Normal [facility] Absolute lymphocyte countOrd ered By: Rusty Hawkins on 08-02-2024 Lymphocytes Auto (Unsp spec) [#/Vol] 1.89 10*3/uL 0.83-4.51 [facility] Absolute neutrophil countOrd ered By: Rusty Hawkins on 08-02-2024 Neutrophils (Bld) [#/Vol] 7.6 10*3/uL 2.0-7.7 [facility] Anion gap in Serum or Plasma Ordered By: Rusty Hawkins on 08-02-2024 Anion gap [Moles/Vol] 11 mmol/L 5-15 [facility] Automated lymphocyte count a s percentage of total leukocytesOrdered By: Rusty Hawkins on 08-02-2024 Lymphocytes/100 WBC Auto (Unsp spec) 17.5 % Low 19-41 [facility] BUN/creatinine ratioOrdered By: Rusty Hawkins on 08-02-2024 Urea nitrogen/Creatinine [Mass ratio] 15.9 mg/mg 10- [facility] Basic Metabolic Profile (BMP )on 08-02-2024 BUN/CRE 15.9 RATIO Normal -20 [facility] Comment on above: Performed By: #### L 100.0100, L500.2500 ####[facility] [address] [place], [address] Calcium [Mass/Vol] 10.3 mg/dL Normal 7.6-11.0 [facility] Comment on above: Performed By: #### L 100.0100, L500.2500 ####[facility] [address] [place], [address] Chloride [Moles/Vol] 104 mmol/L Normal 98-108 [facility] Comment on above: Performed By: #### L 100.0100, L500.2500 ####[facility] [address] [place], [address] CO2 [Moles/Vol] 23.0 mmol/L Normal 21.0-32.0 [facility] Comment on above: Performed By: #### L 100.0100, L500.2500 ####[facility] [address] [place], [address] Creatinine [Mass/Vol] 0.94 mg/dL Normal 0.70-1.20 [facility] Comment on above: Performed By: #### L 100.0100, L500.2500 ####[facility] [address] [place], [address] ECRCL 105.56 ml/min Normal 50-250 [facility] Comment on above: Performed By: #### L 100.0100, L500.2500 ####[facility] [address] [place], [address] GAP 11 Normal 5-15 [facility] Comment on above: Performed By: #### L 100.0100, L500.2500 ####[facility] [address] [place], [address] GFR/1.73 sq M.predicted among non-blacks MDRD (S/P/Bld) [Vol rate/Area] 92 mL/min/{1.73_m2} Normal >60 [facility] Comment on above: Result Comment: mL/m in/1.73m2 CKD-EPI Creatinine Equation (2020) Performed By: #### L 100.0100, L500.2500 ####[facility] [address] [place], [address] Glucose [Mass/Vol] 105 mg/dL High 70-99 [facility] Comment on above: Performed By: #### L 100.0100, L500.2500 ####[facility] [address] [place], [address] Potassium [Moles/Vol] 4.1 mmol/L Normal 3.3-5.1 [facility] Comment on above: Performed By: #### L 100.0100, L500.2500 ####[facility] [address] [place], [address] Sodium [Moles/Vol] 138 mmol/L Normal 133-145 [facility] Comment on above: Performed By: #### L 100.0100, L500.2500 ####[facility] [address] [place], [address] Urea nitrogen [Mass/Vol] 15 mg/dL Normal 4-19 [facility] Comment on above: Performed By: #### L 100.0100, L500.2500 ####[facility] [address] [place], [address] Basophil percentageOrdered B y: Remus Ross on 08-02-2024 Basophils/100 WBC (Bld) 0.8 % 0-[address] [facility] Bilirubin Test strip Ql (U)O rdered By: Remus Ungtesha on 08-02-2024 Bilirubin Ql (U) Negative Negative [facility] CBC W/Diff, Automatedon Absolute Lymph 1.89 X10 3/uL Normal 0.83-4.51 [facility] Comment on above: Performed By: #### L 100.0100, L500.2500 ####[facility] [address] [place], [address] Absolute Neut 7.6 X10 3/uL Normal 2.0-7.7 [facility] Comment on above: Performed By: #### L 100.0100, L500.2500 ####[facility] [address] [place], [address] Basophils/100 WBC (Bld) 0.8 % Normal 0-[address] [facility] Comment on above: Performed By: #### L 100.0100, L500.2500 ####[facility] [address] [place], [address] Eosinophils/100 WBC (Bld) 1.9 % Normal 0-5 [facility] Comment on above: Performed By: #### L 100.0100, L500.2500 ####[facility] [address] [place], [address] Erythrocyte distribution width (RBC) [Ratio] 14.1 % Normal 11.6-14.6 [facility] Comment on above: Performed By: #### L 100.0100, L500.2500 ####[facility] [address] [place], [address] Hematocrit (Bld) [Volume fraction] 49.7 % Normal 40-54 [facility] Comment on above: Performed By: #### L 100.0100, L500.2500 ####[facility] [address] [place], [address] Hemoglobin (Bld) [Mass/Vol] 16.8 g/dL High 13.0-16.5 [facility] Comment on above: Performed By: #### L 100.0100, L500.2500 ####[facility] [address] [place], [address] IG% 0.400 Normal 0.0-0.9 [facility] Comment on above: Result Comment: IG% - Immature Granulocytes (promyelocytes, myelocytes and metamyelocytes) > 1% indicates that a LEFT SHIFT is Present. Performed By: #### L 100.0100, L500.2500 ####[facility] [address] [place], [address] Lymphocytes/100 WBC (Bld) 17.5 % Low 19-41 [facility] Comment on above: Performed By: #### L 100.0100, L500.2500 ####[facility] [address] [place], [address] MCH (RBC) [Entitic mass] 29.8 pg Normal 27.0-32.0 [facility] Comment on above: Performed By: #### L 100.0100, L500.2500 ####[facility] [address], [address] MCHC (RBC) [Mass/Vol] 33.8 g/dL Normal 32-36 [facility] Comment on above: Performed By: #### L 100.0100, L500.2500 ####[facility] [address] [place], [address] MCV (RBC) [Entitic vol] 88.1 fL Normal 80-[address] [facility] Comment on above: Performed By: #### L 100.0100, L500.2500 ####[facility] [address] [place], [address] Monocytes/100 WBC (Bld) 8.9 % Normal 0-[address] [facility] Comment on above: Performed By: #### L 100.0100, L500.2500 ####[facility] [address] [place], [address] Neutrophils/100 WBC (Bld) 70.5 % High 47-70 [facility] Comment on above: Performed By: #### L 100.0100, L500.2500 ####[facility] [address] [place], [address] Nucleated RBC (Bld) [#/Vol] 0 10*3/uL Normal 0-5 [facility] Comment on above: Performed By: #### L 100.0100, L500.2500 ####[facility] [address] [place], [address] Platelet mean volume (Bld) [Entitic vol] 9.1 fL Normal 6.2-12.0 [facility] Comment on above: Performed By: #### L 100.0100, L500.2500 ####[facility] [address] [place], [address] Platelets (Bld) [#/Vol] 263 10*3/uL Normal 150-450 [facility] Comment on above: Performed By: #### L 100.0100, L500.2500 ####[facility] [address] [place], [address] RBC (Bld) [#/Vol] 5.64 10*6/uL Normal 4.6-6.2 [facility] Comment on above: Performed By: #### L 100.0100, L500.2500 ####[facility] [address] [place], [address] RDW SD 45.4 fl High 35.1-43.9 [facility] Comment on above: Performed By: #### L 100.0100, L500.2500 ####[facility] [address] [place], [address] WBC (Bld) [#/Vol] 10.8 10*3/uL Normal 4.4-11.0 [facility] Comment on above: Performed By: #### L 100.0100, L500.2500 ####[facility] [address] [place], [address] Carbon dioxide, total [Moles /volume] in Central venous bloodOrdered By: Rusty Hawkins on 08-02-2024 CO2 [Moles/Vol] 23.0 mmol/L 21.0-32.0 [facility] Chloride assayOrdered By: Karine Hawkins on 08-02-2024 Chloride [Moles/Vol] 104 mmol/L 98-108 [facility] Emergency Department Summary on 08-02-2024 Emergency Department Summary [facility] Medical Records Department [address] [place] [address] Emergency Department Summary 08/02/24 MR#: [id number] Acct: [id number] Name: CORRIE QUEEN Rep #: [id number] : 1960 63 From: Rusty Hawkins DO [...] related to that. Patient's had prior cholecystectomy. 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 Normal [facility] Eosinophil percentageOrdered By: Rusty Hawkins on 08-02-2024 Eosinophils/100 WBC (Bld) 1.9 % 0-5 [facility] Erythrocyte distribution wid th ratioOrdered By: [facility] Camp[facility] on 08-02-2024 Erythrocyte distribution width (RBC) [Ratio] 14.1 % 11.6-14.6 [facility] Erythrocyte distribution wid th standard deviationOrdered By: [facility] on 08-02-2024 Erythrocyte distribution width (RBC) [Ratio] 45.4 fl High 35.1-43.9 [facility] Glomerular filtration rate ( GFR) estimation/1.73 sq m using serum, plasma, or whole bOrdered By: Rusty Hawkins on 08-02-2024 GFR/1.73 sq M.predicted among non-blacks MDRD (S/P/Bld) [Vol rate/Area] 92 mL/min/{1.73_m2} >60 [facility] Comment on above: mL/min/1.73m2 CKD-EP I Creatinine Equation (2020) Hematocrit Auto (Bld) [Volum e fraction]Ordered By: [facility] Hawkins on 08-02-2024 Hematocrit (Bld) [Volume fraction] 49.7 % 40-54 [facility] Hemoglobin measurementOrdere d By: [facility] Hawkins on 08-02-2024 Hemoglobin (Bld) [Mass/Vol] 16.8 g/dL High 13.0-16.5 [facility] Immature granulocytes/100 WB C Auto (Bld)Ordered By: Rusty Hawkins on 08-02-2024 Immature granulocytes/100 WBC (Bld) 0.400 % 0.0-0.9 [facility] Comment on above: IG% - Immature Granu locytes (promyelocytes, myelocytes and metamyelocytes) > 1% indicates that a LEFT SHIFT is Present. Ketones Test strip Ql (U)Ord ered By: Rusty Hawkins on 08-02-2024 Ketones Ql (U) Negative Negative [facility] MCV (mean corpuscular volume ) determinationOrdered By: Rusty Hawkins on 08-02-2024 MCV (RBC) [Entitic vol] 88.1 fL 80-[address] [facility] Mean corpuscular hemoglobin (MCH) determinationOrdered By: Rusty Ungtesha on 08-02-2024 MCH (RBC) [Entitic mass] 29.8 pg 27.0-32.0 [facility] Mean corpuscular hemoglobin concentration (MCHC) determinationOrdered By: Rusty Ungtesha on 08-02-2024 MCHC (RBC) [Mass/Vol] 33.8 g/dL 32-36 [facility] Mean platelet volume determi nationOrdered By: Rusty Ungtesha on 08-02-2024 Platelet mean volume (Bld) [Entitic vol] 9.1 fL 6.2-12.0 [facility] Microscopic analysis of urin e for red blood cells (RBC)Ordered By: Rusty Hawkins on 08-02-2024 Microscopic analysis of urine for red blood cells (RBC) 0-5 SEEN /hpf 0-5 [facility] Monocyte percentageOrdered B y: Rusty Hawkins on 08-02-2024 Monocytes/100 WBC (Bld) 8.9 % 0-[address] [facility] Mucus LM Ql (Urine sed)Order ed By: Rusty Hawkins on 08-02-2024 Mucus Ql (Urine sed) 0 SEEN /hpf [facility] Neutrophil percentageOrdered By: Rusty Ungtesha on 08-02-2024 Neutrophils/100 WBC (Bld) 70.5 % High 47-70 [facility] Nitrite Test strip Ql (U)Ord ered By: Rusty Ungtesha on 08-02-2024 Nitrite Ql (U) Negative Negative [facility] Nucleated red blood cell per centageOrdered By: Rusty Ungtesha on 08-02-2024 Nucleated RBC/100 WBC (Bld) [Ratio] 0 % 0-5 [facility] Platelet countOrdered By: Karine Hawkins on 08-02-2024 Platelets (Bld) [#/Vol] 263 10*3/uL 150-450 [facility] Potassium measurement (mass/ volume)Ordered By: Rusty Hawkins on 08-02-2024 Potassium (Unsp spec) [Mass/Vol] 4.1 mmol/L 3.3-5.1 [facility] Protein Test strip Ql (U)Ord ered By: Rusty Hawkins on 08-02-2024 Protein Ql (U) 15 mg/dl High Negative [facility] RBC Auto (Bld) [#/Vol]Ordere d By: Rusty Hawkins on 08-02-2024 RBC (Bld) [#/Vol] 5.64 10*6/uL 4.6-6.2 [facility] Serum creatinine measurement (mass/volume)Ordered By: Rusty Hawkins on 08-02-2024 Creatinine [Mass/Vol] 0.94 mg/dL 0.70-1.20 [facility] Serum glucose measurement (m ass/volume)Ordered By: Rusty Hawkins on 08-02-2024 Glucose [Mass/Vol] 105 mg/dL High 70-99 [facility] Serum or plasma calcium jamila urement (mass/volume)Ordered By: Rusty Hawkins on 08-02-2024 Calcium [Mass/Vol] 10.3 mg/dL 7.6-11.0 [facility] Serum or plasma urea nitroge n measurement (mass/volume)Ordered By: Rusty Hawkins on 08-02-2024 Urea nitrogen [Mass/Vol] 15 mg/dL 4-19 [facility] Sodium levelOrdered By: Daron Hawkins on 08-02-2024 Sodium [Moles/Vol] 138 mmol/L 133-145 [facility] Squamous epithelial cells de tection in urine sediment by light microscopyOrdered By: Rusty Hawkins on 08-02-2024 Epithelial cells.squamous LM Ql (Urine sed) 10-25 SEEN /hpf 0-5 [facility] Urinalysis, Completeon 08-02 EPI,SQUAMOUS 10-25 SEEN Normal 0-5 [facility] Comment on above: Order Comment: CLEAN CATCH Performed By: #### L 400.0001 ####[facility] [address] [place], [address] RBC 0-5 SEEN Normal 0-5 [facility] Comment on above: Order Comment: CLEAN CATCH Performed By: #### L 400.0001 ####[facility] [address] [place], [address] WBC 0-5 SEEN Normal 0-5 [facility] Comment on above: Order Comment: CLEAN CATCH Performed By: #### L 400.0001 ####[facility] [address] [place], [address] BACTERIA 0 SEEN Normal None Seen [facility] Comment on above: Order Comment: CLEAN CATCH Performed By: #### L 400.0001 ####[facility] [address] [place], [address] Mucus Ql (Urine sed) 0 SEEN Normal [facility] Comment on above: Order Comment: CLEAN CATCH Performed By: #### L 400.0001 ####[facility] [address] [place], [place], [address] Urine clarityOrdered By: Coreen Hawkins on 08-02-2024 Clarity (U) Clear Clear [facility] Urine color determinationOrd ered By: Rusty Hawkins on 08-02-2024 Color (U) Yellow Yellow [facility] Urine glucose detectionOrder ed By: Rusty Hawkins on 08-02-2024 Glucose Ql (U) Normal mg/dl Normal [facility] Urine leukocyte esterase det ection by dipstickOrdered By: Rusty Hawkins on 08-02-2024 Leukocyte esterase Test strip Ql (U) 25 /ul High Negative [facility] Urine pHOrdered By: Rusty Esteves gur on 08-02-2024 pH (U) 6.0 [pH] 5.0 - 8.0 [facility] Urine sediment bacteria coun t by microscopy (number/high power field)Ordered By: Rusty Hawkins on 08-02-2024 Bacteria LM.HPF (Urine sed) [#/Area] 0 /[HPF] None Seen [facility] Urine specific gravity measu rementOrdered By: Rusty Hawkins on 08-02-2024 Specific gravity (U) [Rel density] 1.015 1.002-1.030 [facility] Urine urobilinogen measureme ntOrdered By: Rusty Hawkins on 08-02-2024 Urobilinogen Ql (U) Normal mg/dl Normal [facility] White blood cell (WBC) count Ordered By: Rusty Hawkins on 08-02-2024 WBC (Bld) [#/Vol] 10.8 10*3/uL 4.4-11.0 [facility] White blood cell countOrdere d By: Rusty Hawkins on 08-02-2024 White blood cell count 0-5 SEEN /hpf 0-5 [facility] Endocrinology Visit Reporton 07-17-2024 Endocrinology Visit Report [facility] [address] [place] [address]. [address] [place] [address] OFFICE VISIT Date of Service: 07/17/24 MR#: [id number] Acct: [id number] Name: CORRIE QUEEN Rep #: [id number] : 1960 Provider: Linette Baron Age/Sex: 63/M Location[facility] Status: Signed Intake Vital Signs 03/31/24 [...] itchy eyes (more content not included)... Normal [facility] Urine Cultureon 06-02-2024 URC Pending Streptococcus viridans group [place] Count 50,000-80,000 Streptococcus viridans group: REACTION Ampicillin Islt JADE <=0.25 Penicillin G Islt JADE <=0.06 S Cefotaxime Islt JADE <=0.12 S cefTRIAXone Islt JADE <=0.12 S Linezolid Islt JADE <=2 S Vancomycin Islt JADE 0.5 S Normal [facility] Comment on above: Performed By: #### M 100.8215 ####[facility] [address] [place], [place], [id number] Laboratory - Chemistry and C hemistry - challengeOrdered By: Stanislaw Alejandra on 05-28-2024 Bilirubin Ql (U) Negative [facility] Glucose Ql (U) Negative [facility] Ketones Ql (U) Trace (5) [facility] pH (U) 5.0 [pH] [facility] Specific gravity (U) [Rel density] 1.015 [facility] Urobilinogen (U) [Mass/Vol] 0.2426639 mg/dL [facility] Laboratory - Hematology and Cell countsOrdered By: Stanislaw Alejandra on 05-28-2024 Hemoglobin Ql (U) Negative [facility] Laboratory - Specimen inform ationOrdered By: Stanislaw Alejandra on 05-28-2024 Clarity (U) Clear [facility] Color (U) DARK YELLOW [facility] Laboratory - UrinalysisOrder ed By: Stanislaw Alejandra on 05-28-2024 Nitrite Ql (U) Negative [facility] [facility] Protein Ql (U) Negative [facility] No Panel InformationOrdered By: Stanislaw Alejandra on 05-28-2024 Urine Leukocytes Negatve [facility] Urine Non-Hemolyzed Blood Negative [facility] Urgent Care Visit Reporton 0 05-28-2024 Urgent Care Visit Report [facility] [address], [address] [place] [address] OFFICE VISIT Date of Service: 05/28/24 MR#: [id number] Acct: [id number] Name: CORRIE QUEEN Rep #: [id number] : 1960 Provider: EDMUND Arita Age/Sex: 63/M Location: [facility] Status: Signed Intake Vital Signs 03/31/24 10:21 [...] has been going on a few weeks. [facility] Medical History Sebaceous cyst of scrotum Kidney [...] MA on 05/28/24 13:02 Off Ur Spec [place] 1.015 Last Edit by Mary Alberto MA [...] Urine Tod (more content not included)... Normal [facility] Urine cultureOrdered By: [place] Alejandra on 05-28-2024 Bacteria identified Cx Nom (U) Streptococcus viridans group Abnormal [facility] TFTESTon 04-25-2024 Free Testost Direct 5.5 pg/mL Low 6.6-18.1 [facility] Comment on above: Result Comment: Perf ormed At: [address] [id number] Willi Adams MD Ph:[phone] Performed At: [address] [id number] Pau Carranza PhD Ph:[phone] Performed By: #### C AUR #### [place] [address] #### CRUR #### [address] [address] Testosterone Lvl 360 ng/dL Normal 264-916 [facility] Comment on above: Result Comment: Adul t male reference interval is based on a population of healthy nonobese males (BMI <30) between 19 and 39 years old. erica Joseph.al. JCEM 2017,102;7139-6766. PMID: [id number]. Performed By: #### C AUR #### [place] [address] #### CRUR #### [address] [address] Yamileth 04-22-2024 TSI 23.80 IU/L High 0.00-0.55 [facility] Comment on above: Result Comment: Perf ormed At: [address] [id number] Willi Adams MD Ph:[phone] Performed By: #### C AUR #### [place] [address] #### CRUR #### [address] [address] .Auto Diffon 04-20-2024 Basophil, Absolute 0.1 10 3/mcL Normal 0.0-0.[address] [facility] Comment on above: Performed By: #### V IDH, ANEU, LIPID, [id number], FT3, FT4, GFR, ADIFF, [id number], CAION, TSH, CBC, CMP #### [place] [address] #### PROL, PTH #### [address] [address] Basophils/100 WBC (Bld) 1.0 % Normal 0.0-2.5 [facility] Comment on above: Performed By: #### V IDH, ANEU, LIPID, [id number], FT3, FT4, GFR, ADIFF, [id number], CAION, TSH, CBC, CMP #### [place] [address] #### PROL, PTH #### [address] [address] Eosinophil, Absolute 0.3 10 3/mcL Normal 0.0-0.7 [facility] Comment on above: Performed By: #### V IDH, ANEU, LIPID, [id number], FT3, FT4, GFR, ADIFF, [id number], CAION, TSH, CBC, CMP #### [place] [address] #### PROL, PTH #### [address] [address] Eosinophils/100 WBC (Bld) 4.3 % Normal 0.0-7.0 [facility] Comment on above: Performed By: #### V IDH, ANEU, LIPID, [id number], FT3, FT4, GFR, ADIFF, [id number], CAION, TSH, CBC, CMP #### [address] [address] #### PROL, PTH #### [address] [address] Lymphocyte, Absolute 2.1 10 3/mcL Normal 0.9-4.3 [facility] Comment on above: Performed By: #### V IDH, ANEU, LIPID, [id number], FT3, FT4, GFR, ADIFF, [id number], CAION, TSH, CBC, CMP #### [address] [address] #### PROL, PTH #### [address] [address] Lymphocytes/100 WBC (Bld) 28.0 % Normal 20.0-40.0 [facility] Comment on above: Performed By: #### V IDH, ANEU, LIPID, [id number], FT3, FT4, GFR, ADIFF, [id number], CAION, TSH, CBC, CMP #### [address] [address] #### PROL, PTH #### [place] [id number] Monocyte, Absolute 0.8 10 3/mcL Normal 0.1-1.[address] [facility] Comment on above: Performed By: #### V IDH, ANEU, LIPID, [id number], FT3, FT4, GFR, ADIFF, [id number], CAION, TSH, CBC, CMP #### [place] [address] #### PROL, PTH #### [place] [address] Monocytes/100 WBC (Bld) 10.4 % Normal 2.0-13.0 [facility] Comment on above: Performed By: #### V IDH, ANEU, LIPID, [id number], FT3, FT4, GFR, ADIFF, [id number], CAION, TSH, CBC, CMP #### [place] [address] #### PROL, PTH #### [place] [address] Neutrophils/100 WBC (Bld) 56.3 % Normal 50.0-75.0 [facility] Comment on above: Performed By: #### V IDH, ANEU, LIPID, [id number], FT3, FT4, GFR, ADIFF, [id number], CAION, TSH, CBC, CMP #### [place] [address] #### PROL, PTH #### [address] [address] .GFRon 04-20-2024 Estimated Glomerular Filtration Rate 70 ml/min/1.73sqm Normal [facility] Comment on above: Result Comment: Stages [...] Performed By: #### V IDH, ANEU, LIPID, [id number], FT3, FT4, GFR, ADIFF, [id number], CAION, TSH, CBC, CMP #### [place] [address] #### PROL, PTH #### [place] [address] .NEUABSon 04-20-2024 Neutrophil, Absolute 4.2 10 3/mcL Normal 2.3-8.1 [facility] Comment on above: Performed By: #### V IDH, ANEU, LIPID, [id number], FT3, FT4, GFR, ADIFF, [id number], CAION, TSH, CBC, CMP #### [place] [id number] #### PROL, PTH #### [place] [address] CAIONon 04-20-2024 Calcium Ionized 1.25 mmol/L Normal 1.12-1.32 [facility] Comment on above: Performed By: #### V IDH, ANEU, LIPID, [id number], FT3, FT4, GFR, ADIFF, [id number], CAION, TSH, CBC, CMP #### [place] [address] #### PROL, PTH #### [place] [address] CAURon 04-20-2024 Calcium [Mass/Vol] 12.0 mg/dL Normal [facility] Comment on above: Performed By: #### C AUR #### [place] [address] #### CRUR #### [place] [address] CBCon 04-20-2024 Erythrocyte distribution width (RBC) [Ratio] 14.8 % Normal 11.5-15.5 [facility] Comment on above: Performed By: #### V IDH, ANEU, LIPID, [id number], FT3, FT4, GFR, ADIFF, [id number], CAION, TSH, CBC, CMP #### [address] [address] #### PROL, PTH #### [place] [address] Hematocrit (Bld) [Volume fraction] 50.6 % Normal 40.0-52.0 [facility] Comment on above: Performed By: #### V IDH, ANEU, LIPID, [id number], FT3, FT4, GFR, ADIFF, [id number], CAION, TSH, CBC, CMP #### [place] [address] #### PROL, PTH #### [place] [address] Hgb 17.3 G/dL Normal 13.0-17.5 [facility] Comment on above: Performed By: #### V IDH, ANEU, LIPID, [id number], FT3, FT4, GFR, ADIFF, [id number], CAION, TSH, CBC, CMP #### [place] [address] #### PROL, PTH #### [place] [address] MCH (RBC) [Entitic mass] 30.1 pg Normal 27.0-33.0 [facility] Comment on above: Performed By: #### V IDH, ANEU, LIPID, [id number], FT3, FT4, GFR, ADIFF, [id number], CAION, TSH, CBC, CMP #### [place] [address] #### PROL, PTH #### [address] [address] MCHC 34.2 G/dL Normal 32.0-36.0 [facility] Comment on above: Performed By: #### V IDH, ANEU, LIPID, [id number], FT3, FT4, GFR, ADIFF, [id number], CAION, TSH, CBC, CMP #### [address] [address] #### PROL, PTH #### [place] [address] MCV (RBC) [Entitic vol] 88.0 fL Normal 81.0-100.0 [facility] Comment on above: Performed By: #### V IDH, ANEU, LIPID, [id number], FT3, FT4, GFR, ADIFF, [id number], CAION, TSH, CBC, CMP #### [address] [address] #### PROL, PTH #### [place] [address] Platelet 289 10 3/mcL Normal 150-450 [facility] Comment on above: Performed By: #### V IDH, ANEU, LIPID, [id number], FT3, FT4, GFR, ADIFF, [id number], CAION, TSH, CBC, CMP #### [address] [address] #### PROL, PTH #### [place] [address] Platelet mean volume (Bld) [Entitic vol] 7.4 fL Normal 6.4-10.5 [facility] Comment on above: Performed By: #### V IDH, ANEU, LIPID, [id number], FT3, FT4, GFR, ADIFF, [id number], CAION, TSH, CBC, CMP #### [address] [address] #### PROL, PTH #### [place] [address] RBC 5.75 10 6/mcL Normal 4.50-6.00 [facility] Comment on above: Performed By: #### V IDH, ANEU, LIPID, [id number], FT3, FT4, GFR, ADIFF, [id number], CAION, TSH, CBC, CMP #### [address] [address] #### PROL, PTH #### [address] [address] WBC 7.4 10 3/mcL Normal 4.5-10.8 [facility] Comment on above: Performed By: #### V IDH, ANEU, LIPID, [id number], FT3, FT4, GFR, ADIFF, 567659, CAION, TSH, CBC, CMP #### [address] [address] #### PROL, PTH #### [place] [address] CMPon 04-20-2024 Albumin Level 4.2 G/dL Normal 3.4-4.8 [facility] Comment on above: Performed By: #### V IDH, ANEU, LIPID, [id number], FT3, FT4, GFR, ADIFF, [id number], CAION, TSH, CBC, CMP #### [address] [address] #### PROL, PTH #### [address] [address] Albumin/Globulin [Mass ratio] 1.1 {ratio} Normal 1.1-2.5 [facility] Comment on above: Performed By: #### V IDH, ANEU, LIPID, [id number], FT3, FT4, GFR, ADIFF, [id number], CAION, TSH, CBC, CMP #### [address] [address] #### PROL, PTH #### [address] [address] ALP [Catalytic activity/Vol] 75 U/L Normal 40-135 [facility] Comment on above: Performed By: #### V IDH, ANEU, LIPID, [id number], FT3, FT4, GFR, ADIFF, 697448, CAION, TSH, CBC, CMP #### [address] [address] #### PROL, PTH #### [address] [address] ALT [Catalytic activity/Vol] 27 U/L Normal 16-63 [facility] Comment on above: Performed By: #### V IDH, ANEU, LIPID, [id number], FT3, FT4, GFR, ADIFF, [id number], CAION, TSH, CBC, CMP #### [address] [address] #### PROL, PTH #### [place] [address] AST [Catalytic activity/Vol] 15 U/L Normal 10-40 [facility] Comment on above: Performed By: #### V IDH, ANEU, LIPID, [id number], FT3, FT4, GFR, ADIFF, [id number], CAION, TSH, CBC, CMP #### [place] [address] #### PROL, PTH #### [address] [address] Bili Total 0.7 mg/dL Normal 0.2-1.0 [facility] Comment on above: Result Comment: Use of this assay is not recommended for patients undergoing treatment with eltrombopag due to the potential for falsely elevated results. Performed By: #### V IDH, ANEU, LIPID, [id number], FT3, FT4, GFR, ADIFF, [id number], CAION, TSH, CBC, CMP #### [address] [address] #### PROL, PTH #### [place] [address] BUN/Creatinine Ratio 15 ratio Normal 7-[address] [facility] Comment on above: Performed By: #### V IDH, ANEU, LIPID, [id number], FT3, FT4, GFR, ADIFF, 606988, CAION, TSH, CBC, CMP #### [place] [address] #### PROL, PTH #### [address] [address] Calcium [Mass/Vol] 10.4 mg/dL High 8.4-10.2 [facility] Comment on above: Performed By: #### V IDH, ANEU, LIPID, [id number], FT3, FT4, GFR, ADIFF, [id number], CAION, TSH, CBC, CMP #### [place] [address] #### PROL, PTH #### [address] [address] Chloride [Moles/Vol] 101 mmol/L Normal 98-[address] [facility] Comment on above: Performed By: #### V IDH, ANEU, LIPID, [id number], FT3, FT4, GFR, ADIFF, [id number], CAION, TSH, CBC, CMP #### [place] [address] #### PROL, PTH #### [address] [address] CO2 [Moles/Vol] 28 mmol/L Normal 23-31 [facility] Comment on above: Performed By: #### V IDH, ANEU, LIPID, [id number], FT3, FT4, GFR, ADIFF, 394967, CAION, TSH, CBC, CMP #### [place] [address] #### PROL, PTH #### [place] [address] Creatinine [Mass/Vol] 1.17 mg/dL Normal 0.70-1.30 [facility] Comment on above: Result Comment: Test ing performed on Siemens Dimension EXL analyzer using a modified kinetic Jody technique. Performed By: #### V IDH, ANEU, LIPID, [id number], FT3, FT4, GFR, ADIFF, 295641, CAION, TSH, CBC, CMP #### [place] [address] #### PROL, PTH #### [address] [address] Electrolyte Balance 7.0 mEq/L Normal 4.0-15.0 [facility] Comment on above: Performed By: #### V IDH, ANEU, LIPID, [id number], FT3, FT4, GFR, ADIFF, [id number], CAION, TSH, CBC, CMP #### [address] [address] #### PROL, PTH #### [place] [address] Globulin 3.7 G/dL Normal 1.5-3.8 [facility] Comment on above: Performed By: #### V IDH, ANEU, LIPID, [id number], FT3, FT4, GFR, ADIFF, 429161, CAION, TSH, CBC, CMP #### [address] [address] #### PROL, PTH #### [place] [address] Glucose [Mass/Vol] 108 mg/dL Normal 80-115 [facility] Comment on above: Performed By: #### V IDH, ANEU, LIPID, [id number], FT3, FT4, GFR, ADIFF, [id number], CAION, TSH, CBC, CMP #### [address] [address] #### PROL, PTH #### [place] [address] Potassium [Moles/Vol] 4.2 mmol/L Normal 3.5-5.1 [facility] Comment on above: Performed By: #### V IDH, ANEU, LIPID, [id number], FT3, FT4, GFR, ADIFF, 487838, CAION, TSH, CBC, CMP #### [address] [address] #### PROL, PTH #### [place] [address] Sodium [Moles/Vol] 136 mmol/L Normal 136-145 [facility] Comment on above: Performed By: #### V IDH, ANEU, LIPID, [id number], FT3, FT4, GFR, ADIFF, [id number], CAION, TSH, CBC, CMP #### [address] [address] #### PROL, PTH #### [address] [address] Total Protein 7.9 G/dL Normal 6.4-8.2 [facility] Comment on above: Performed By: #### V IDH, ANEU, LIPID, [id number], FT3, FT4, GFR, ADIFF, 193936, CAION, TSH, CBC, CMP #### [address] [address] #### PROL, PTH #### [place] [address] Urea nitrogen [Mass/Vol] 17 mg/dL Normal 7-18 [facility] Comment on above: Performed By: #### V IDH, ANEU, LIPID, [id number], FT3, FT4, GFR, ADIFF, 806340, CAION, TSH, CBC, CMP #### [address] [address] #### PROL, PTH #### [place] [address] CRURon 04-20-2024 U Creatinine 109.0 mg/dL Normal [facility] Comment on above: Performed By: #### C AUR #### [place] [address] #### CRUR #### [address] [address] FT3on 04-20-2024 Free T3 [Mass/Vol] 2.88 pg/mL Normal 2.30-4.00 [facility] Comment on above: Performed By: #### C AUR #### [place] [address] #### CRUR #### [place] [address] FT4on 04-20-2024 Free T4 [Mass/Vol] 0.91 ng/dL Normal 0.76-1.46 [facility] Comment on above: Performed By: #### V IDH, ANEU, LIPID, [id number], FT3, FT4, GFR, ADIFF, [id number], CAION, TSH, CBC, CMP #### [facility] [address] [place], [place] [address] #### PROL, PTH #### [address] [address] LABORATORYOrdered By: Carola Ceja on 04-20-2024 Calcium [...] 04-20-2024 Cholesterol [Mass/Vol] 159 mg/dL Normal 0-200 [facility] Comment on above: Result Comment: Chol esterol Reference Interval: Less than 200 Desirable 200-239 Borderline high risk 240 and above High risk Performed By: #### C AUR #### [place] [address] #### CRUR #### [address] [address] Cholesterol in HDL [Mass/Vol] 36 mg/dL Low 40-60 [facility] Comment on above: Performed By: #### C AUR #### [place] [address] #### CRUR #### [address] [address] Cholesterol in LDL [Mass/Vol] 89 mg/dL Normal 0-130 [facility] Comment on above: Performed By: #### C AUR #### [place] [address] #### CRUR #### [address] [address] Triglyceride [Mass/Vol] 169 mg/dL High 0-150 [facility] Comment on above: Result Comment: Trig lyceride Reference Interval: Less than 150 Normal 150-199 Borderline high risk 200-499 High risk 500 or higher Very high risk Performed By: #### C AUR #### [place] [address] #### CRUR #### [place] [address] PROLon 04-20-2024 Prolactin 15.0 ng/mL Normal 2.0-18.0 [facility] Comment on above: Performed By: #### C AUR #### [place] [address] #### CRUR #### [place] [address] PTHon 04-20-2024 PTH, Intact 44.8 pg/mL Normal 18.5-88.0 [facility] Comment on above: Performed By: #### C AUR #### [place] [address] #### CRUR #### [place] [address] TSHon 04-20-2024 TSH Qn 0.38 m[IU]/L Normal 0.36-3.74 [facility] Comment on above: Performed By: #### V IDH, ANEU, LIPID, [id number], FT3, FT4, GFR, ADIFF, [id number], CAION, TSH, CBC, CMP #### [address] [address] #### PROL, PTH #### [place] [address] VIDHon 04-20-2024 Vit. D 25-Hydroxy 31.3 ng/mL Normal [facility] Comment on above: Result Comment: Inte rpretive Values Based on Total 25(OH) Vitamin D: Deficient <20 ng/mL Insufficient 20 - <30 ng/mL Sufficient 30-100 ng/mL Performed By: #### C AUR #### [facility] [address] [place] [address] #### CRTESHA #### [facility] [address] [place], [place] [address] Abd Aortic/IVC Duplex scanon 04-13-2024 Abd Aortic/IVC Duplex scan [facility] [address] [place] [address] Abd Aortic/IVC Duplex scan 04/13/24 0946 MR#: [id number] Acct: [id number] Name: CORRIE QUEEN Rep #: [id number] : 1960 63 From: Ryan Ceja MD [...] Aorta IVC Iliac vasculature or bypass grafts [address]. The exam was diagnostic. Exam performed in [...] Date Dictated: 04/13/2446 Date Transcribed: 04/13/24 1252 [place] Man: Signed Normal [facility] Venous Duplex US, Unilateral on 04-13-2024 Venous Duplex US, Unilateral [facility] [address] 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 Normal [facility] MR/BMS.BVSon 03-18-2024 MR/BMS.BVS [facility] [address] [place] [address] OFFICE VISIT Date of Service: 03/18/24 MR#: [id number] Acct: [id number] Name: CORRIE QUEEN Rep #: [id number] : 1960 Provider: EDMUND Jovel Age/Sex: 63/M Location: [facility] Status: Signed Intake Vital Signs 02/25/24 [...] underwent attempted percutaneous thrombectomy and stenting at [facility] which was not successful. He then [...] having stasis (more content not included)... Normal [facility] Urgent Care Visit Reporton 1 Urgent Care Visit Report [facility] [address], [address] [place] [address] OFFICE VISIT Date of Service: 02/25/24 MR#: [id number] Acct: [id number] Name: CORRIE QUEEN Rep #: [id number] : 1960 Provider: EDMUND Miguel Age/Sex: 63/M Location: [facility] Status: Signed Intake Vital Signs 12/23/23 09:55 [...] of having one on the right side. [facility] Medical History (Updated 02/25/24 @ 11:13 by [...] fever, chills, sweats, lightheadedness/dizzi ness, nausea/vomiting. No kaya-tun-cuxxmsy products taken to assist. No other associated symptoms and no other alleviating or aggravating factors. ROS Const Constitutional: No other (As above) Exam Const General: cooperative, healthy appearing and no acute distress Orientation: alert and awake [facility] Head: normal to inspection Ears: [...] Free Testost Direct 1.5 pg/mL Low 6.6-18.1 [facility] Comment on above: Result Comment: Perf ormed At: [facility] [address] [id number] Willi Adams MD Ph:[phone] Performed At: [facility] [address] [id number] Pau Carranza PhD Ph:[phone] Performed By: #### V IDH, ANEU, LIPID, [id number], FT3, FT4, GFR, ADIFF, [id number], CAION, TSH, CBC, CMP #### [place] [address] #### PROL, PTH #### [address] [address] Testosterone Lvl 111 ng/dL Low 264-916 [facility] Comment on above: Result Comment: Adul t male reference interval is based on a population of healthy nonobese males (BMI <30) between 19 and 39 years old. Jake et.al. JCEM 2017,102;4861-8917. PMID: [id number]. Performed By: #### V IDH, ANEU, LIPID, [id number], FT3, FT4, GFR, ADIFF, 255932, CAION, TSH, CBC, CMP #### [place] [address] #### PROL, PTH #### [address] [address] .Auto Diffon 01-03-2024 Basophil, Absolute 0.1 10 3/mcL Normal 0.0-0.[address] [facility] Comment on above: Performed By: #### V IDH, ANEU, LIPID, [id number], FT3, FT4, GFR, ADIFF, 716742, CAION, TSH, CBC, CMP #### [address] [address] #### PROL, PTH #### [address] [address] Basophils/100 WBC (Bld) 1.0 % Normal 0.0-2.5 [facility] Comment on above: Performed By: #### V IDH, ANEU, LIPID, [id number], FT3, FT4, GFR, ADIFF, 289383, CAION, TSH, CBC, CMP #### [address] [address] #### PROL, PTH #### [address] [address] Eosinophil, Absolute 0.2 10 3/mcL Normal 0.0-0.7 [facility] Comment on above: Performed By: #### V IDH, ANEU, LIPID, [id number], FT3, FT4, GFR, ADIFF, 112970, CAION, TSH, CBC, CMP #### [address] [address] #### PROL, PTH #### [address] [address] Eosinophils/100 WBC (Bld) 2.6 % Normal 0.0-7.0 [facility] Comment on above: Performed By: #### V IDH, ANEU, LIPID, [id number], FT3, FT4, GFR, ADIFF, 257616, CAION, TSH, CBC, CMP #### [address] [address] #### PROL, PTH #### [address] [address] Lymphocyte, Absolute 1.6 10 3/mcL Normal 0.9-4.3 [facility] Comment on above: Performed By: #### V IDH, ANEU, LIPID, [id number], FT3, FT4, GFR, ADIFF, 731502, CAION, TSH, CBC, CMP #### [address] [address] #### PROL, PTH #### [address] [address] Lymphocytes/100 WBC (Bld) 21.6 % Normal 20.0-40.0 [facility] Comment on above: Performed By: #### V IDH, ANEU, LIPID, [id number], FT3, FT4, GFR, ADIFF, 484526, CAION, TSH, CBC, CMP #### [address] [address] #### PROL, PTH #### [address] [address] Monocyte, Absolute 0.5 10 3/mcL Normal 0.1-1.[address] [facility] Comment on above: Performed By: #### V IDH, ANEU, LIPID, [id number], FT3, FT4, GFR, ADIFF, 338719, CAION, TSH, CBC, CMP #### [address] [address] #### PROL, PTH #### [address] [address] Monocytes/100 WBC (Bld) 7.3 % Normal 2.0-13.0 [facility] Comment on above: Performed By: #### V IDH, ANEU, LIPID, [id number], FT3, FT4, GFR, ADIFF, 619114, CAION, TSH, CBC, CMP #### [address] [address] #### PROL, PTH #### [address] [address] Neutrophils/100 WBC (Bld) 67.5 % Normal 50.0-75.0 [facility] Comment on above: Performed By: #### V IDH, ANEU, LIPID, [id number], FT3, FT4, GFR, ADIFF, 911601, CAION, TSH, CBC, CMP #### [address] [address] #### PROL, PTH #### [address] [address] .GFRon 01-03-2024 GFR 83 ml/min/1.73sqm Normal [facility] Comment on above: Result Comment: GFR [...] Performed By: #### V IDH, ANEU, LIPID, [id number], FT3, FT4, GFR, ADIFF, 829634, CAION, TSH, CBC, CMP #### [address] [address] #### PROL, PTH #### [address] [address] GFR Non- 69 ml/min/1.73sqm Normal [facility] Comment on above: Result Comment: GFR [...] Performed By: #### V IDH, ANEU, LIPID, [id number], FT3, FT4, GFR, ADIFF, [id number], CAION, TSH, CBC, CMP #### [address] [address] #### PROL, PTH #### [address] [address] .NEUABSon 01-03-2024 Neutrophil, Absolute 4.9 10 3/mcL Normal 2.3-8.1 [facility] Comment on above: Performed By: #### V IDH, ANEU, LIPID, [id number], FT3, FT4, GFR, ADIFF, [id number], CAION, TSH, CBC, CMP #### [place] [address] #### PROL, PTH #### [address] [address] A1Con 01-03-2024 Glucose [Mass/Vol] 111 mg/dL Normal [facility] Comment on above: Result Comment: Ruthann mated Average Glucose calculated by equation ((28.7xA1C)-46.7) Estimated average glucose (eAG) is a calculated value from Hemoglobin A1C and is internet sales representative of the average blood glucose level in the last 2-3 month period. Normal range: less than 114 mg/dL Performed By: #### V IDH, ANEU, LIPID, [id number], FT3, FT4, GFR, ADIFF, [id number], CAION, TSH, CBC, CMP #### [place] [address] #### PROL, PTH #### [place] [address] HbA1c (Bld) [Mass fraction] 5.5 % Normal 4.3-6.4 [facility] Comment on above: Performed By: #### V IDH, ANEU, LIPID, [id number], FT3, FT4, GFR, ADIFF, [id number], CAION, TSH, CBC, CMP #### [place] [address] #### PROL, PTH #### [place] [address] CAIONon 01-03-2024 Calcium Ionized 1.29 mmol/L Normal 1.12-1.32 [facility] Comment on above: Performed By: #### C AUR #### [place] [address] #### CRUR #### [address] [address] CAURon 01-03-2024 Calcium [Mass/Vol] 14.0 mg/dL Normal [facility] Comment on above: Performed By: #### C AUR #### [place] [address] #### CRUR #### [address] [address] CBCon 01-03-2024 Erythrocyte distribution width (RBC) [Ratio] 15.2 % Normal 11.5-15.5 [facility] Comment on above: Performed By: #### V IDH, ANEU, LIPID, [id number], FT3, FT4, GFR, ADIFF, [id number], CAION, TSH, CBC, CMP #### [address] [address] #### PROL, PTH #### [place] [address] Hematocrit (Bld) [Volume fraction] 49.8 % Normal 40.0-52.0 [facility] Comment on above: Performed By: #### V IDH, ANEU, LIPID, [id number], FT3, FT4, GFR, ADIFF, [id number], CAION, TSH, CBC, CMP #### [address] [address] #### PROL, PTH #### [place] [address] Hgb 16.6 G/dL Normal 13.0-17.5 [facility] Comment on above: Performed By: #### V IDH, ANEU, LIPID, [id number], FT3, FT4, GFR, ADIFF, [id number], CAION, TSH, CBC, CMP #### [address] [address] #### PROL, PTH #### [place] [address] MCH (RBC) [Entitic mass] 29.8 pg Normal 27.0-33.0 [facility] Comment on above: Performed By: #### V IDH, ANEU, LIPID, [id number], FT3, FT4, GFR, ADIFF, [id number], CAION, TSH, CBC, CMP #### [place] [address] #### PROL, PTH #### [place] [address] MCHC 33.3 G/dL Normal 32.0-36.0 [facility] Comment on above: Performed By: #### V IDH, ANEU, LIPID, [id number], FT3, FT4, GFR, ADIFF, [id number], CAION, TSH, CBC, CMP #### [place] [address] #### PROL, PTH #### [place] [address] MCV (RBC) [Entitic vol] 89.3 fL Normal 81.0-100.0 [facility] Comment on above: Performed By: #### V IDH, ANEU, LIPID, [id number], FT3, FT4, GFR, ADIFF, [id number], CAION, TSH, CBC, CMP #### [place] [address] #### PROL, PTH #### [place] [address] Platelet 284 10 3/mcL Normal 150-450 [facility] Comment on above: Performed By: #### V IDH, ANEU, LIPID, [id number], FT3, FT4, GFR, ADIFF, [id number], CAION, TSH, CBC, CMP #### [place] [address] #### PROL, PTH #### [place] [address] Platelet mean volume (Bld) [Entitic vol] 7.3 fL Normal 6.4-10.5 [facility] Comment on above: Performed By: #### V IDH, ANEU, LIPID, [id number], FT3, FT4, GFR, ADIFF, [id number], CAION, TSH, CBC, CMP #### [place] [address] #### PROL, PTH #### [place] [address] RBC 5.58 10 6/mcL Normal 4.50-6.00 [facility] Comment on above: Performed By: #### V IDH, ANEU, LIPID, [id number], FT3, FT4, GFR, ADIFF, [id number], CAION, TSH, CBC, CMP #### [address] [address] #### PROL, PTH #### [place] [address] WBC 7.3 10 3/mcL Normal 4.5-10.8 [facility] Comment on above: Performed By: #### V IDH, ANEU, LIPID, [id number], FT3, FT4, GFR, ADIFF, [id number], CAION, TSH, CBC, CMP #### [place] [address] #### PROL, PTH #### [place] [address] CMPon 01-03-2024 Albumin Level 4.2 G/dL Normal 3.4-4.8 [facility] Comment on above: Performed By: #### V IDH, ANEU, LIPID, [id number], FT3, FT4, GFR, ADIFF, [id number], CAION, TSH, CBC, CMP #### [address] [address] #### PROL, PTH #### [place] [address] Albumin/Globulin [Mass ratio] 1.2 {ratio} Normal 1.1-2.5 [facility] Comment on above: Performed By: #### V IDH, ANEU, LIPID, [id number], FT3, FT4, GFR, ADIFF, [id number], CAION, TSH, CBC, CMP #### [address] [address] #### PROL, PTH #### [place] [address] ALP [Catalytic activity/Vol] 103 U/L Normal 40-135 [facility] Comment on above: Performed By: #### V IDH, ANEU, LIPID, [id number], FT3, FT4, GFR, ADIFF, [id number], CAION, TSH, CBC, CMP #### [address] [address] #### PROL, PTH #### [address] [address] ALT [Catalytic activity/Vol] 39 U/L Normal 16-63 [facility] Comment on above: Performed By: #### V IDH, ANEU, LIPID, [id number], FT3, FT4, GFR, ADIFF, [id number], CAION, TSH, CBC, CMP #### [address] [address] #### PROL, PTH #### [place] [address] AST [Catalytic activity/Vol] 23 U/L Normal 10-40 [facility] Comment on above: Performed By: #### V IDH, ANEU, LIPID, [id number], FT3, FT4, GFR, ADIFF, [id number], CAION, TSH, CBC, CMP #### [address] [address] #### PROL, PTH #### [place] [address] Bili Total 0.6 mg/dL Normal 0.2-1.0 [facility] Comment on above: Result Comment: Use of this assay is not recommended for patients undergoing treatment with eltrombopag due to the potential for falsely elevated results. Performed By: #### V IDH, ANEU, LIPID, [id number], FT3, FT4, GFR, ADIFF, [id number], CAION, TSH, CBC, CMP #### [address] [address] #### PROL, PTH #### [place] [address] BUN/Creatinine Ratio 12 ratio Normal 7-[address] [facility] Comment on above: Performed By: #### V IDH, ANEU, LIPID, [id number], FT3, FT4, GFR, ADIFF, [id number], CAION, TSH, CBC, CMP #### [address] [address] #### PROL, PTH #### [address] [address] Calcium [Mass/Vol] 10.4 mg/dL High 8.4-10.2 [facility] Comment on above: Performed By: #### V IDH, ANEU, LIPID, [id number], FT3, FT4, GFR, ADIFF, [id number], CAION, TSH, CBC, CMP #### [address] [address] #### PROL, PTH #### [address] [address] Chloride [Moles/Vol] 105 mmol/L Normal 98-[address] [facility] Comment on above: Performed By: #### V IDH, ANEU, LIPID, [id number], FT3, FT4, GFR, ADIFF, [id number], CAION, TSH, CBC, CMP #### [place] [address] #### PROL, PTH #### [address] [address] CO2 [Moles/Vol] 29 mmol/L Normal 23-31 [facility] Comment on above: Performed By: #### V IDH, ANEU, LIPID, [id number], FT3, FT4, GFR, ADIFF, [id number], CAION, TSH, CBC, CMP #### [address] [address] #### PROL, PTH #### [address] [address] Creatinine [Mass/Vol] 1.09 mg/dL Normal 0.70-1.30 [facility] Comment on above: Result Comment: Test ing performed on [employer] Dimension EXL analyzer using a modified kinetic Jody technique. Performed By: #### V IDH, ANEU, LIPID, [id number], FT3, FT4, GFR, ADIFF, [id number], CAION, TSH, CBC, CMP #### [place] [address] #### PROL, PTH #### [address] [address] Electrolyte Balance 7.0 mEq/L Normal 4.0-15.0 [facility] Comment on above: Performed By: #### V IDH, ANEU, LIPID, [id number], FT3, FT4, GFR, ADIFF, [id number], CAION, TSH, CBC, CMP #### [address] [address] #### PROL, PTH #### [address] [address] Globulin 3.5 G/dL Normal [facility] Comment on above: Performed By: #### V IDH, ANEU, LIPID, [id number], FT3, FT4, GFR, ADIFF, [id number], CAION, TSH, CBC, CMP #### [address] [address] #### PROL, PTH #### [place] [address] Glucose [Mass/Vol] 115 mg/dL Normal 80-115 [facility] Comment on above: Performed By: #### V IDH, ANEU, LIPID, [id number], FT3, FT4, GFR, ADIFF, [id number], CAION, TSH, CBC, CMP #### [address] [address] #### PROL, PTH #### [place] [address] Potassium [Moles/Vol] 4.7 mmol/L Normal 3.5-5.1 [facility] Comment on above: Performed By: #### V IDH, ANEU, LIPID, [id number], FT3, FT4, GFR, ADIFF, [id number], CAION, TSH, CBC, CMP #### [address] [address] #### PROL, PTH #### [place] [address] Sodium [Moles/Vol] 141 mmol/L Normal 136-145 [facility] Comment on above: Performed By: #### V IDH, ANEU, LIPID, [id number], FT3, FT4, GFR, ADIFF, [id number], CAION, TSH, CBC, CMP #### [address] [address] #### PROL, PTH #### [address] [address] Total Protein 7.7 G/dL Normal 6.4-8.2 [facility] Comment on above: Performed By: #### V IDH, ANEU, LIPID, [id number], FT3, FT4, GFR, ADIFF, [id number], CAION, TSH, CBC, CMP #### [address] [address] #### PROL, PTH #### [address] [address] Urea nitrogen [Mass/Vol] 13 mg/dL Normal 09-11 [facility] Comment on above: Performed By: #### V IDH, ANEU, LIPID, [id number], FT3, FT4, GFR, ADIFF, [id number], CAION, TSH, CBC, CMP #### [address] [address] #### PROL, PTH #### [address] [address] CRURon 01-03-2024 U Creatinine 152.1 mg/dL Normal 39.0-259.0 [facility] Comment on above: Performed By: #### C AUR #### [place] [address] #### CRUR #### [address] [address] E2on 01-03-2024 Estradiol Level 24.43 pg/mL Normal 0.00-39.80 [facility] Comment on above: Result Comment: No te - New Reference Range in effect 19 Adult Female E2 Reference Ranges: Follicular phase 19.5 - 144.2 pg/mL Midcycle 63.9 - 356.7 pg/mL Luteal phase 55.8 - 214.2 pg/mL Post menopausal 0 - 33.2 pg/mL Performed By: #### V IDH, ANEU, LIPID, [id number], FT3, FT4, GFR, ADIFF, [id number], CAION, TSH, CBC, CMP #### [address] [address] #### PROL, PTH #### [place] [address] FT3on 01-03-2024 Free T3 [Mass/Vol] 2.59 pg/mL Normal 2.30-4.00 [facility] Comment on above: Performed By: #### V IDH, ANEU, LIPID, [id number], FT3, FT4, GFR, ADIFF, [id number], CAION, TSH, CBC, CMP #### [place] [address] #### PROL, PTH #### [place] [address] FT4on 01-03-2024 Free T4 [Mass/Vol] 0.91 ng/dL Normal 0.76-1.46 [facility] Comment on above: Performed By: #### V IDH, ANEU, LIPID, [id number], FT3, FT4, GFR, ADIFF, [id number], CAION, TSH, CBC, CMP #### [place] [address] #### PROL, PTH #### [place] [address] LABORATORYOrdered By: Johan Duff on 01-03-2024 Calcium [...] calculated value from Hemoglobin A1C and is internet sales representative of the average blood glucose [...] ormal Reference Ranges for Females: Female Premenopause Nqd50-900.01-47.94 ng/dL Female Postmenopause Vti93-78<7.00-45.62 ng/dL Thyroglobulin Ab IA Qn 22 unit/mL [...] 01-03-2024 Cholesterol [Mass/Vol] 234 mg/dL High 0-200 [facility] Comment on above: Result Comment: Chol esterol Reference Interval: Less than 200 Desirable 200-239 Borderline high risk 240 and above High risk Performed By: #### V IDH, ANEU, LIPID, [id number], FT3, FT4, GFR, ADIFF, [id number], CAION, TSH, CBC, CMP #### [address] [address] #### PROL, PTH #### [address] [address] Cholesterol in HDL [Mass/Vol] 37 mg/dL Low 40-60 [facility] Comment on above: Performed By: #### V IDH, ANEU, LIPID, [id number], FT3, FT4, GFR, ADIFF, [id number], CAION, TSH, CBC, CMP #### [address] [address] #### PROL, PTH #### [address] [address] Cholesterol in LDL [Mass/Vol] 163 mg/dL High 0-130 [facility] Comment on above: Performed By: #### V IDH, ANEU, LIPID, [id number], FT3, FT4, GFR, ADIFF, [id number], CAION, TSH, CBC, CMP #### [address] [address] #### PROL, PTH #### [place] [address] Triglyceride [Mass/Vol] 169 mg/dL High 0-150 [facility] Comment on above: Result Comment: Trig lyceride Reference Interval: Less than 150 Normal 150-199 Borderline high risk 200-499 High risk 500 or higher Very high risk Performed By: #### V IDH, ANEU, LIPID, [id number], FT3, FT4, GFR, ADIFF, [id number], CAION, TSH, CBC, CMP #### [place] [address] #### PROL, PTH #### [place] [address] MGon 01-03-2024 Magnesium [Mass/Vol] 2.1 mg/dL Normal 1.8-2.[address] [facility] Comment on above: Performed By: #### V IDH, ANEU, LIPID, [id number], FT3, FT4, GFR, ADIFF, [id number], CAION, TSH, CBC, CMP #### [place] [address] #### PROL, PTH #### [place] [address] PHOSon 01-03-2024 Phosphate [Mass/Vol] 3.1 mg/dL Normal 2.3-4.[address] [facility] Comment on above: Performed By: #### V IDH, ANEU, LIPID, [id number], FT3, FT4, GFR, ADIFF, [id number], CAION, TSH, CBC, CMP #### [place] [address] #### PROL, PTH #### [place] [address] PROLon 01-03-2024 Prolactin 13.6 ng/mL Normal 2.0-18.0 [facility] Comment on above: Performed By: #### V IDH, ANEU, LIPID, [id number], FT3, FT4, GFR, ADIFF, [id number], CAION, TSH, CBC, CMP #### [address] [address] #### PROL, PTH #### [address] [address] PSAon 01-03-2024 Prostate Specific Antigen 0.62 ng/mL Normal 0.00-4.00 [facility] Comment on above: Performed By: #### V IDH, ANEU, LIPID, [id number], FT3, FT4, GFR, ADIFF, [id number], CAION, TSH, CBC, CMP #### [address] [address] #### PROL, PTH #### [address] [address] PTHon 01-03-2024 PTH, Intact 50.7 pg/mL Normal 18.5-88.0 [facility] Comment on above: Performed By: #### V IDH, ANEU, LIPID, [id number], FT3, FT4, GFR, ADIFF, [id number], CAION, TSH, CBC, CMP #### [address] [address] #### PROL, PTH #### [address] [address] TESTOon 01-03-2024 Testosterone Lvl 106.55 ng/dL Normal 86.98-780.1 0 [facility] Comment on above: Result Comment: Norm al Reference Ranges for Females: Female Premenopause Age 21-60 9.01-47.94 ng/dL Female Postmenopause Age 45-89 <7.00-45.62 ng/dL Performed By: #### V IDH, ANEU, LIPID, [id number], FT3, FT4, GFR, ADIFF, [id number], CAION, TSH, CBC, CMP #### [address] [address] #### PROL, PTH #### [address] [address] THYABon 01-03-2024 anti-Thyroid Peroxidase 545 units/ml High 0-60 [facility] Comment on above: Result Comment: No te - New Reference Range in effect 19 Performed By: #### V IDH, ANEU, LIPID, [id number], FT3, FT4, GFR, ADIFF, [id number], CAION, TSH, CBC, CMP #### [place] [address] #### PROL, PTH #### [place] [address] Thyroglobulin Ab 22 units/ml Normal 15-60 [facility] Comment on above: Result Comment: No te - New Reference Range in effect 19 Performed By: #### V IDH, ANEU, LIPID, [id number], FT3, FT4, GFR, ADIFF, [id number], CAION, TSH, CBC, CMP #### [place] [address] #### PROL, PTH #### [place] [address] TSHon 01-03-2024 TSH Qn 0.63 m[IU]/L Normal 0.36-3.74 [facility] Comment on above: Performed By: #### V IDH, ANEU, LIPID, [id number], FT3, FT4, GFR, ADIFF, [id number], CAION, TSH, CBC, CMP #### [place] [address] #### PROL, PTH #### [place] [address] VIDHon 01-03-2024 Vit. D 25-Hydroxy 32.8 ng/mL Normal [facility] Comment on above: Result Comment: Inte rpretive Values Based on Total 25(OH) Vitamin D: Deficient <20 ng/mL Insufficient 20 - <30 ng/mL Sufficient 30-100 ng/mL Performed By: #### V IDH, ANEU, LIPID, [id number], FT3, FT4, GFR, ADIFF, [id number], CAION, TSH, CBC, CMP #### [facility] [address] [place], [place] [address] #### PROL, PTH #### [address] [address] Internal Medicine Office Vis gissell 12-23-2023 Internal Medicine Office Visit [facility] [address] [place] [address] [place] [address] OFFICE VISIT Date of Service: 12/23/23 MR#: [id number] Acct: [id number] Name: CORRIE QUEEN Rep #: [id number] : 1960 Provider: RUBI romano Age/Sex: 63/M Location: [facility] Status: Signed Intake Vital Signs 10/15/23 09:21 [...] LEFT EYE IRRITATION Chief Complaint: back pain Superintendent Distribution Required: No Is patient in pain?: No [...] yellow. Denies light sensitivity or visual disturbances. [facility] Medical History Kidney pain Pituitary abnormality Liver [...] at rest, ch (more content not included)... [facility] 11-25-2023 36 Thanks so much hemant! Normal [facility] 36 We received a fax stating that the patients testosterone needs a PA , could you please assist? [facility] 36on 08-01-2023 36 Message released to patient as written. Patient's further questions if applicable: Patient voiced understanding. Stated he will pick his medication up tomorrow. Please have clinical team call patient to schedule to have testosterone levels checked. Were all questions from office addressed or relayed to the patient from encounter: Yes [place] [address] Tried calling elvia molina and left a voice message for call back. Results of recent labs show normal prolactin, thyroid functions-patient is to continue current dose of cabergoline and levothyroxine. Testosterone remains low-I have sent prescription for testosterone gel to his pharmacy. Patient is to have testosterone levels checked 2 months after starting testosterone treatment [facility] Office Visiton 07-31-2023 Follow-up visit [id number] [place] 1960 M Date Provider Department Center 07/31/2023 [id number] APPUSW*[facility] None Family History Adopted: Yes Problem Relation Age of Onset No Known Problems Father Cancer Mother Comments: lung Family Status - Relation Status Age at Father Mother Level of Service:30281 OK OFFICE/OUTPATIENT ESTABLISHED MOD MDM 30 MIN Reason for Visit and Comments: Follow-up [962145] - Macroprolactinoma Hypothyroidism [143] Normal [facility] Progress Noteon 07-31-2023 Progress Note [facility] END[facility]CR[facility] [address] [facility] [address] [facility] [address] Dept: [phone] Dept Loc: [phone] Visit type: Established Reason for Visit: Follow-up [...] Subjective HPI PCP is Silvestre Sexton Previous Account Maintenance Representative: Dr Sal & Dr Benito Initial [facility] endocrinology office visit: 2013 Last office [...] is supposed to have followed up with ed case manager Dr. Monge , but has missed his [...] negative. Al (more content not included)... Normal [facility] 36on 06-19-2023 36 We have been unable to reach your patient to schedule their testing. Test Name: Complete PFT pre and post bronchodilator 1st Attempt: 06/15/2023 mychart message 2nd Attempt: 06/19/2023 LVM. Normal [facility] Basophil percentageOrdered B y: Bull Lopez on 06-10-2023 Chloride [Moles/Vol] 107 mmol/L 98-107 [facility] Glucose [Mass/Vol] 92 mg/dL 74-106 [facility] Potassium [Moles/Vol] 4.1 mmol/L 3.5-5.1 [facility] Sodium [Moles/Vol] 136 mmol/L 136-145 [facility] Laboratory - Chemistry and C hemistry - challengeOrdered By: Bull Lopez on 06-10-2023 CO2 [Moles/Vol] 24.0 mmol/L 21.0-32.0 [facility] Urea nitrogen/Creatinine [Mass ratio] 16.8 mg/mg 10-20 [facility] No Panel InformationOrdered By: Bull Lopez on 06-10-2023 Estimated GFR (MDRD) Amer 80 mL/min >60 [facility] Comment on above: GFR Calc Estimated GFR (MDRD) Non-Af Amer 66 mL/min >60 [facility] Comment on above: Non- GFR Calc Serum or plasma calcium jamila urement (mass/volume)Ordered By: Bull Lopez on 06-10-2023 Calcium [Mass/Vol] 10.3 mg/dL 8.5-10.1 [facility] Serum or plasma creatinine m easurement (mass/volume)Ordered By: Bull Lopez on 06-10-2023 Creatinine [Mass/Vol] 1.19 mg/dL 0.70-1.30 [facility] Comment on above: The validity of the calculated GFR & GFRAA in patients over 70 years has not been determined. Clinical correlation is essential. Serum or plasma urea nitroge n measurement (mass/volume)Ordered By: Bull Lopez on 06-10-2023 Urea nitrogen [Mass/Vol] 20 mg/dL 7-18 [facility] Thin prep Papanicolaou smear with manual screeningOrdered By: Bull Lopez on 06-10-2023 Thin prep Papanicolaou smear with manual screening 5 -15 [facility] Absolute lymphocyte countOrd ered By: Sanjana Gillvaibhav on 06-06-2023 Lymphocytes Auto (Unsp spec) [#/Vol] 0.81 10*3/uL 0.83-4.51 [facility] Automated lymphocyte count a s percentage of total leukocytesOrdered By: Sanjana Gillvaibhav on 06-06-2023 Lymphocytes/100 WBC Auto (Unsp spec) 14.3 % 19-41 [facility] Basophil percentageOrdered B y: Sanjana Hale on 06-06-2023 Basophil percentage 0 SEEN /hpf 0-5 [facility] Basophils/100 WBC (Bld) 0.9 % 0-1 [facility] Bilirubin [Mass/Vol] 0.40 mg/dL 0.20-1.00 [facility] Comment on above: For patients on eltr ombopag therapy, use of Dimension [place] TBIL is not recommended. Chloride [Moles/Vol] 109 mmol/L 98-107 [facility] Eosinophils/100 WBC (Bld) 1.8 % 0-5 [facility] Glucose [Mass/Vol] 95 mg/dL 74-106 [facility] Hemoglobin (Bld) [Mass/Vol] 14.9 g/dL 13.0-16.5 [facility] Monocytes/100 WBC (Bld) 10.6 % 0-10 [facility] Neutrophils (Bld) [#/Vol] 4.1 10*3/uL 2.0-7.7 [facility] Neutrophils/100 WBC (Bld) 71.7 % 47-70 [facility] Potassium [Moles/Vol] 4.3 mmol/L 3.5-5.1 [facility] Protein [Mass/Vol] 8.2 g/dL 6.4-8.2 [facility] Sodium [Moles/Vol] 136 mmol/L 136-145 [facility] WBC (Bld) [#/Vol] 5.7 10*3/uL 4.4-11.0 [facility] Bilirubin Test strip Ql (U)O rdered By: Sanjana Hale on 06-06-2023 Bilirubin Ql (U) Negative Negative [facility] Culture, urineOrdered By: Evelyn Hale on 06-06-2023 Bacteria identified Cx Nom (U) Culture exhibits no growth. [facility] Determination of erythrocyte mean corpuscular volume (MCV)Ordered By: Sanjana Hale on 06-06-2023 MCV (RBC) [Entitic vol] 88.5 fL 80-[address] [facility] Erythrocyte distribution wid th ratioOrdered By: Sanjana Hale on 06-06-2023 Erythrocyte distribution width (RBC) [Ratio] 13.5 % 11.6-14.6 [facility] Erythrocyte distribution wid th standard deviationOrdered By: Sanjana Hale on 06-06-2023 Erythrocyte distribution width (RBC) [Entitic vol] 43.7 fL 35.1-43.9 [facility] Hematocrit Auto (Bld) [Volum e fraction]Ordered By: Sanjana Hale on 06-06-2023 Hematocrit (Bld) [Volume fraction] 45.6 % 40-54 [facility] Immature granulocytes/100 WB C Auto (Bld)Ordered By: Sanjana Hale on 06-06-2023 Immature granulocytes/100 WBC (Bld) 0.700 % 0.0-0.9 [facility] Comment on above: IG% - Immature Granu locytes (promyelocytes, myelocytes and metamyelocytes) > 1% indicates that a LEFT SHIFT is Present. Ketones Test strip Ql (U)Ord ered By: Sanjana Hale on 06-06-2023 Ketones Ql (U) Negative Negative [facility] Laboratory - Chemistry and C hemistry - challengeOrdered By: Sanjana Hale on 06-06-2023 Albumin/Globulin [Mass ratio] 1.1 {ratio} 0.9-2.4 [facility] ALP [Catalytic activity/Vol] 53 U/L 45-117 [facility] ALT [Catalytic activity/Vol] 19 U/L 16-61 [facility] CO2 [Moles/Vol] 25.0 mmol/L 21.0-32.0 [facility] Globulin (S) [Mass/Vol] 3.9 g/dL 2.2-4.[address] [facility] Urea nitrogen/Creatinine [Mass ratio] 13.3 mg/mg 10-20 [facility] Laboratory - Hematology and Cell countsOrdered By: Sanjana Hale on 06-06-2023 MCH (RBC) [Entitic mass] 28.9 pg 27.0-32.0 [facility] MCHC (RBC) [Mass/Vol] 32.7 g/dL 32-36 [facility] Nucleated RBC/100 WBC (Bld) [Ratio] 0 % 0-5 [facility] Platelet mean volume (Bld) [Entitic vol] 9.5 fL 6.2-12.0 [facility] Platelets (Bld) [#/Vol] 237 10*3/uL 150-450 [facility] Mucus LM Ql (Urine sed)Order ed By: Sanjana Hale on 06-06-2023 Mucus Ql (Urine sed) 0 SEEN /hpf [facility] Nitrite Test strip Ql (U)Ord ered By: Sanjana Hale on 06-06-2023 Nitrite Ql (U) Negative Negative [facility] No Panel InformationOrdered By: Sanjana Hale on 06-06-2023 Estimated GFR (MDRD) Amer 73 mL/min >60 [facility] Comment on above: GFR Calc Estimated GFR (MDRD) Non-Af Amer 61 mL/min >60 [facility] Comment on above: Non- GFR Calc Urine RBC 0 SEEN /hpf 0-5 [facility] Protein Test strip Ql (U)Ord ered By: Sanjana Hale on 06-06-2023 Protein Ql (U) Negative Negative [facility] RBC Auto (Bld) [#/Vol]Ordere d By: Sanjana Hale on 06-06-2023 RBC (Bld) [#/Vol] 5.15 10*6/uL 4.6-6.2 [facility] Serum or plasma calcium jamila urement (mass/volume)Ordered By: Sanjana Hale on 06-06-2023 Calcium [Mass/Vol] 10.9 mg/dL 8.5-10.1 [facility] Serum or plasma creatinine m easurement (mass/volume)Ordered By: Sanjana Hale on 06-06-2023 Creatinine [Mass/Vol] 1.28 mg/dL 0.70-1.30 [facility] Comment on above: The validity of the calculated GFR & GFRAA in patients over 70 years has not been determined. Clinical correlation is essential. Serum or plasma urea nitroge n measurement (mass/volume)Ordered By: Sanjana Hale on 06-06-2023 Urea nitrogen [Mass/Vol] 17 mg/dL 7-18 [facility] Squamous epithelial cells de tection in urine sediment by light microscopyOrdered By: Sanjana Hale on 06-06-2023 Epithelial cells.squamous LM Ql (Urine sed) 0 SEEN /hpf 0-5 [facility] Thin prep Papanicolaou smear with manual screeningOrdered By: Sanjana Hale on 06-06-2023 Thin prep Papanicolaou smear with manual screening 4.3 g/dL 3.2-5.0 [facility] Thin prep Papanicolaou smear with manual screening 20 U/L 15-37 [facility] Thin prep Papanicolaou smear with manual screening 2 5-15 [facility] Urine blood detectionOrdered By: Sanjana Hale on 06-06-2023 RBC Ql (U) Negative Negative [facility] Urine clarityOrdered By: Kaylin Hale on 06-06-2023 Clarity (U) Clear Clear [facility] Urine color determinationOrd ered By: Sanjana Hale on 06-06-2023 Color (U) Yellow Yellow [facility] Urine glucose detectionOrder ed By: Sanjana Hale on 06-06-2023 Glucose Ql (U) Normal mg/dl Normal [facility] Urine leukocyte esterase det ection by dipstickOrdered By: Sanjana Hale on 06-06-2023 Leukocyte esterase Test strip Ql (U) Negative Negative [facility] Urine pHOrdered By: Sanjana oates on 06-06-2023 pH (U) 6.0 [pH] 5.0 - 8.0 [facility] Urine sediment bacteria coun t by microscopy (number/high power field)Ordered By: Sanjana Hale on 06-06-2023 Bacteria LM.HPF (Urine sed) [#/Area] 0 /[HPF] None Seen [facility] Urine specific gravity measu rementOrdered By: Sanjana Hale on 06-06-2023 Specific gravity (U) [Rel density] 1.015 1.002-1.030 [facility] Urine urobilinogen measureme ntOrdered By: Sanjana Hale on 06-06-2023 Urobilinogen Ql (U) Normal mg/dl Normal [facility] Basophil percentageOrdered B y: Sanjana Hale on 05-28-2023 Basophil percentage 0 SEEN /hpf 0-5 [facility] Bilirubin Test strip Ql (U)O rdered By: Sanjana Hale on 05-28-2023 Bilirubin Ql (U) Negative Negative [facility] Culture, urineOrdered By: Evelyn Hale on 05-28-2023 Bacteria identified Cx Nom (U) Culture exhibits no growth. [facility] Ketones Test strip Ql (U)Ord ered By: Sanjana Hale on 05-28-2023 Ketones Ql (U) Negative Negative [facility] Mucus LM Ql (Urine sed)Order ed By: Sanjana Hale on 05-28-2023 Mucus Ql (Urine sed) 0 SEEN /hpf [facility] Nitrite Test strip Ql (U)Ord ered By: Sanjana Hale on 05-28-2023 Nitrite Ql (U) Negative Negative [facility] No Panel InformationOrdered By: Sanjana Hale on 05-28-2023 Urine RBC 0 SEEN /hpf 0-5 [facility] Protein Test strip Ql (U)Ord ered By: Sanjana Hale on 05-28-2023 Protein Ql (U) 15 mg/dl Negative [facility] Squamous epithelial cells de tection in urine sediment by light microscopyOrdered By: Sanjana Hale on 05-28-2023 Epithelial cells.squamous LM Ql (Urine sed) 0-5 SEEN /hpf 0-5 [facility] Urine blood detectionOrdered By: Sanjana Hale on 05-28-2023 RBC Ql (U) Negative Negative [facility] Urine clarityOrdered By: Kaylin Hale on 05-28-2023 Clarity (U) Clear Clear [facility] Urine color determinationOrd ered By: Sanjana Hale on 05-28-2023 Color (U) Yellow Yellow [facility] Urine glucose detectionOrder ed By: Sanjana Hale on 05-28-2023 Glucose Ql (U) Normal mg/dl Normal [facility] Urine leukocyte esterase det ection by dipstickOrdered By: Sanjana Hale on 05-28-2023 Leukocyte esterase Test strip Ql (U) Negative Negative [facility] Urine pHOrdered By: Sanjana oates on 05-28-2023 pH (U) 6.0 [pH] 5.0 - 8.0 [facility] Urine sediment bacteria coun t by microscopy (number/high power field)Ordered By: Sanjana Hale on 05-28-2023 Bacteria LM.HPF (Urine sed) [#/Area] 0 /[HPF] None Seen [facility] Urine specific gravity measu rementOrdered By: Sanjana Hale on 05-28-2023 Specific gravity (U) [Rel density] 1.015 1.002-1.030 [facility] Urine urobilinogen measureme ntOrdered By: Sanjana Hale on 05-28-2023 Urobilinogen Ql (U) Normal mg/dl Normal [facility] Basophil percentageOrdered B y: Yolanda Vivar on 05-09-2023 Basophil percentage 0-5 SEEN /hpf 0-5 [facility] Bilirubin Test strip Ql (U)O rdered By: Yolanda Vivar on 05-09-2023 Bilirubin Ql (U) Negative Negative [facility] Culture, urineOrdered By: Sheridan Vivar on 05-09-2023 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 [facility] Ketones Test strip Ql (U)Ord ered By: Yolanda Vivar on 05-09-2023 Ketones Ql (U) Negative Negative [facility] Mucus LM Ql (Urine sed)Order ed By: Yolanda Vivar on 05-09-2023 Mucus Ql (Urine sed) 0 SEEN /hpf [facility] Nitrite Test strip Ql (U)Ord ered By: Yolanda Vivar on 05-09-2023 Nitrite Ql (U) Negative Negative [facility] No Panel InformationOrdered By: Yolanda Vivar on 05-09-2023 Urine RBC 0 SEEN /hpf 0-5 [facility] Protein Test strip Ql (U)Ord ered By: Yolanda Vivar on 05-09-2023 Protein Ql (U) Negative Negative [facility] Squamous epithelial cells de tection in urine sediment by light microscopyOrdered By: Yolanda Vivar on 05-09-2023 Epithelial cells.squamous LM Ql (Urine sed) 0-5 SEEN /hpf 0-5 [facility] Urine blood detectionOrdered By: Yolanda Vivar on 05-09-2023 RBC Ql (U) 10 /ul Negative [facility] Urine clarityOrdered By: Lincoln Vivar on 05-09-2023 Clarity (U) Clear Clear [facility] Urine color determinationOrd ered By: Yolanda Vivar on 05-09-2023 Color (U) Yellow Yellow [facility] Urine glucose detectionOrder ed By: Yolanda Vivar on 05-09-2023 Glucose Ql (U) Normal mg/dl Normal [facility] Urine leukocyte esterase det ection by dipstickOrdered By: Yolanda Vivar on 05-09-2023 Leukocyte esterase Test strip Ql (U) 25 /ul Negative [facility] Urine pHOrdered By: Yolanda Vivar on 05-09-2023 pH (U) 6.5 [pH] 5.0 - 8.0 [facility] Urine sediment bacteria coun t by microscopy (number/high power field)Ordered By: Yolanda Vivar on 05-09-2023 Bacteria LM.HPF (Urine sed) [#/Area] RARE /hpf None Seen [facility] Urine specific gravity measu rementOrdered By: Yolanda Vivar on 05-09-2023 Specific gravity (U) [Rel density] 1.015 1.002-1.030 [facility] Urine urobilinogen measureme ntOrdered By: Yolanda Vivar on 05-09-2023 Urobilinogen Ql (U) Normal mg/dl Normal [facility] 36on 04-30-2023 36 Multiple no shows an d cancellations. Needs seen in office for refills. [facility] Basophil percentageOrdered B y: Sanjana Hale on 03-21-2023 Bilirubin [Mass/Vol] 0.40 mg/dL 0.20-1.00 [facility] Comment on above: For patients on eltr ombopag therapy, use of Dimension [place] TBIL is not recommended. Protein [Mass/Vol] 8.0 g/dL 6.4-8.2 [facility] Cholesterol [Mass/Vol] 153 mg/dL <200 [facility] Comment on above: <200 mg/dL Desirable 200-240 mg/dL Borderline >240 mg/dL High Risk Triglyceride [Mass/Vol] 141 mg/dL <[address] [facility] Comment on above: The drugs N-Acetylcy steine and Metamizole may falsely depress this assay.Serum Triglycerides Reference Interval Normal <150 mg/dL Borderline high 150 - 199 mg/dL High 200 - 499 mg/dL Very High > or = 500 mg/dL Direct bilirubinOrdered By: Sanjana Hale on 03-21-2023 Bilirubin.direct [Mass/Vol] 0.09 mg/dL 0.00-0.30 [facility] High density lipoprotein (HD L) measurementOrdered By: Sanjana Hale on 03-21-2023 Cholesterol in HDL (Body fld) [Mass/Vol] 37 mg/dL >40 [facility] Comment on above: The drugs N-Acetylcy steine and Metamizole may falsely depress this assay. Reference Range HDL <40 mg/dL Low HDL Cholesterol HDL >or= 60 mg/dL High HDL Cholesterol Laboratory - Chemistry and C hemistry - challengeOrdered By: Sanjana Hale on 03-21-2023 ALP [Catalytic activity/Vol] 57 U/L 45-117 [facility] ALT [Catalytic activity/Vol] 23 U/L 16-61 [facility] Globulin (S) [Mass/Vol] 3.7 g/dL 2.2-4.[address] [facility] Low density lipoprotein (LDL ) cholesterol measurementOrdered By: Sanjana Hale on 03-21-2023 Cholesterol in LDL (Body fld) [Moles/Vol] 88 mg/dL 0-130 [facility] Screening prostate specific antigen (PSA) measurementOrdered By: Sanjana Hale on 03-21-2023 Prostate specific Ag IA [Mass/Vol] 0.34 ng/mL 0.00-4.00 [facility] Comment on above: This test was perfor med using the TPSA assay method for [employer] chemistry system. Values obtained with differentassay methods cannot be used interchangably.When changing PSA assays in the course of monitoring apatient, additional sequential testing should be carriedout to confirm baseline values. Thin prep Papanicolaou smear with manual screeningOrdered By: Sanjana Hale on 03-21-2023 Thin prep Papanicolaou smear with manual screening 4.3 g/dL 3.2-5.0 [facility] Thin prep Papanicolaou smear with manual screening 21 U/L 15-37 [facility] Very low density lipoprotein (VLDL) cholesterol measurementOrdered By: Sanjana Hale on 03-21-2023 Cholesterol in VLDL Calc [Moles/Vol] 28 mg/dL 5-40 [facility] Whole blood hemoglobin A1c/t otal hemoglobin ratio (mass fraction)Ordered By: Sajnana Hale on 03-21-2023 HbA1c (Bld) [Mass fraction] 5.3 % 3.8-5.6 [facility] Comment on above: Normal < 5.7 % Predi abetic 5.7 - 6.4 % Diabetic >or= 6.5 % Please note range changes. Absolute lymphocyte countOrd ered By: Ryan Ceja on 02-13-2023 Lymphocytes Auto (Unsp spec) [#/Vol] 0.89 10*3/uL 0.83-4.51 [facility] Basophil percentageOrdered B y: Ryan Ceja on 02-13-2023 Basophils/100 WBC (Bld) 0.3 % 0-[address] [facility] Eosinophils/100 WBC (Bld) 0.8 % 0-5 [facility] Neutrophils (Bld) [#/Vol] 5.5 10*3/uL 2.0-7.7 [facility] Neutrophils/100 WBC (Bld) 77.5 % 47-70 [facility] WBC (Bld) [#/Vol] 7.1 10*3/uL 4.4-11.0 [facility] Blood erythrocytes count (nu mber/volume)Ordered By: Ryan Ceja on 02-13-2023 RBC (Bld) [#/Vol] 4.10 10*6/uL 4.6-6.2 [facility] Blood hemoglobin measurement (mass/volume)Ordered By: Ryan Ceja on 02-13-2023 Hemoglobin (Bld) [Mass/Vol] 12.3 g/dL 13.0-16.5 [facility] Blood lymphocytes/100 leukoc ytesOrdered By: Ryan Ceja on 02-13-2023 Lymphocytes/100 WBC (Bld) 12.6 % 19-41 [facility] Blood monocytes/100 leukocyt esOrdered By: Ryan Ceja on 02-13-2023 Monocytes/100 WBC (Bld) 8.5 % 0-[address] [facility] Blood platelet mean volumeOr dered By: Ryan Ceja on 02-13-2023 Platelet mean volume (Bld) [Entitic vol] 9.6 fL 6.2-12.0 [facility] Determination of erythrocyte mean corpuscular volume (MCV)Ordered By: Ryan Ceja on 02-13-2023 MCV (RBC) [Entitic vol] 92.7 fL 80-[address] [facility] Hematocrit Auto (Bld) [Volum e fraction]Ordered By: Ryan Ceja on 02-13-2023 Hematocrit (Bld) [Volume fraction] 38.0 % 40-54 [facility] Laboratory - CoagulationOrde red By: Ryan Ceja on 02-13-2023 aPTT Coag (Bld) [Time] 47.0 s 24.1-36.2 [facility] Laboratory - Hematology and Cell countsOrdered By: Ryan Ceja on 02-13-2023 Erythrocyte distribution width (RBC) [Entitic vol] 45.6 fL 35.1-43.9 [facility] Erythrocyte distribution width (RBC) [Ratio] 13.4 % 11.6-14.6 [facility] Immature granulocytes/100 WBC (Bld) 0.300 % 0.0-0.9 [facility] Comment on above: IG% - Immature Granu locytes (promyelocytes, myelocytes and metamyelocytes) > 1% indicates that a LEFT SHIFT is Present. MCH (RBC) [Entitic mass] 30.0 pg 27.0-32.0 [facility] Nucleated RBC/100 WBC (Bld) [Ratio] 0 % 0-5 [facility] MCHC Auto (RBC) [Mass/Vol]Or dered By: Ryan Ceja on 02-13-2023 MCHC (RBC) [Mass/Vol] 32.4 g/dL 32-36 [facility] Platelets bldOrdered By: Suzette Ceja on 02-13-2023 Platelets (Bld) [#/Vol] 202 10*3/uL 150-450 [facility] Basophil percentageOrdered B y: Ryan Ceja on 02-12-2023 Chloride [Moles/Vol] 113 mmol/L 98-107 [facility] Glucose [Mass/Vol] 95 mg/dL 74-106 [facility] Potassium [Moles/Vol] 4.4 mmol/L 3.5-5.1 [facility] Sodium [Moles/Vol] 141 mmol/L 136-145 [facility] Laboratory - Chemistry and C hemistry - challengeOrdered By: Ryan Ceja on 02-12-2023 CO2 [Moles/Vol] 26.0 mmol/L 21.0-32.0 [facility] Urea nitrogen/Creatinine [Mass ratio] 14.7 mg/mg 10-20 [facility] No Panel InformationOrdered By: Ryan Ceja on 02-12-2023 Activated Clotting Time 212 sec 74-[address] [facility] Estimated Creatinine Clearance Calc 82.74 ml/min [facility] Estimated GFR (MDRD) Amer 88 mL/min >60 [facility] Comment on above: GFR Calc Estimated GFR (MDRD) Non-Af Amer 73 mL/min >60 [facility] Comment on above: Non- GFR Calc Serum or plasma calcium jamila urement (mass/volume)Ordered By: Ryan Ceja on 02-12-2023 Calcium [Mass/Vol] 9.9 mg/dL 8.5-10.1 [facility] Serum or plasma creatinine m easurement (mass/volume)Ordered By: Ryan Ceja on 02-12-2023 Creatinine [Mass/Vol] 1.09 mg/dL 0.70-1.30 [facility] Comment on above: The validity of the calculated GFR & GFRAA in patients over 70 years has not been determined. Clinical correlation is essential. Serum or plasma urea nitroge n measurement (mass/volume)Ordered By: Ryan Ceja on 02-12-2023 Urea nitrogen [Mass/Vol] 16 mg/dL 7-18 [facility] Thin prep Papanicolaou smear with manual screeningOrdered By: Ryan Ceja on 02-12-2023 Thin prep Papanicolaou smear with manual screening 2 5-15 [facility] Basophil percentageOrdered B y: Ryan Ceja on 02-07-2023 Basophil percentage < 1.0 mg/dL 0.70-1.30 [facility] No Panel InformationOrdered By: Fabio Day on 02-07-2023 Thyroid Stimulating Hormone (TSH) 1.36 uIU/mL 0.358-3.74 [facility] No Panel InformationOrdered By: Ryan Ceja on 02-07-2023 Bedside Estimated GFR (eGFR) > 60.0000 mL/min >60 [facility] 36on 01-29-2023 36 Medication name: tamsulosin (Flomax) [...] prior to picking up the medication: No [address] 01-25-2023 36 90 day supply for cabergoiline sent [place] [address] Name of caller: Flower crowe Contact phone number: [phone] Relationship to Patient: patient Provider: Dr Ruiz Practice: Endo Chief Complaint/Reason for Call: Pt states that Dr Mendoza was aware that the pt was on vacation and that Dr Mendoza wanted to know immediately when the pt came back in town so that a prescription of a 90 day supply of cabergoline (Dostinex) 0.5 MG tablet [[id number]] would be call in to the [facility] pharmacy on file. Pt states is all out of the medication. Please advise Best time of day caller can be reached: Any Patient advised that office/PCP has 24-48 business hours to return their call: Yes [address] 01-09-2023 36 Pa approved [address] 01-08-2023 Submitted PA for testosterone pump 2 pumps daily for 150g for a 30 day supply. Waiting on determination from [facility]. [address] 01-04-2023 36 Was informed by pharmacy that prescription for androgel needs prior auth , can you please help with this ? Thanks [place] [address] Patient was here in the clinic to [...] 01/03/2023 TESTOSTERONE 72 - 623 ng/dL [address] [place] [address] It looks like you sent the cabergoline in on 01/02/23, but does he take testosterone? I do not see it. Normal [facility] 36 Name of caller: Flower crowe Contact phone number: [phone] Relationship to Patient: patient Provider: Joseph Practice: [...] hours to return their call: Yes Normal [facility] 25-hydroxyvitamin D3 [Mass/V ol]on 01-03-2023 Interpretation and review of laboratory results Normal [facility] Therapy is based on measurement of Total 25-OHD with the following classification levels: Less than 20 ng/mL: Indicative of Vit D deficiency 20-30 ng/mL: Suggests Vit D insufficiency Optimal: Greater than or equal to 30 ng/mL Test performed by [employer] Competitive Immunoassay, measuring Total Vitamin D, not individual fractions. [facility] COMPREHENSIVE METABOLIC PANE Sumeet 01-03-2023 Albumin [Mass/Vol] 4.7 g/dL Normal 3.5-5.0 [facility] Comment on above: Performed By: #### L [id number] #### Personal Development Mentor: LENORE ESCOBAR ([id number]) [facility] ([facility]) [address] [place] [address] ALP [Catalytic activity/Vol] 46 U/L Normal 38-126 [facility] Comment on above: Performed By: #### L [id number] #### Personal Development Mentor: LENORE ESCOBAR ([id number]) [facility] ([facility]) [address] [place] [address] [place] ALT [Catalytic activity/Vol] 17 U/L Normal 0-49 [facility] Comment on above: Performed By: #### L [id number] #### Personal Development Mentor: LENORE ESCOBAR ([id number]) [facility] ([facility]) [address] [place] [address] Anion gap [Moles/Vol] 11 mmol/L Normal 3-13 [facility] Comment on above: Performed By: #### L [id number] #### Personal Development Mentor: LENORE ESCOBAR ([id number]) [facility] ([facility]) [address] [place] [address] [place] AST [Catalytic activity/Vol] 23 U/L Normal 15-46 [facility] Comment on above: Performed By: #### L [id number] #### Personal Development Mentor: LENORE ESCOBAR ([id number]) [facility] ([facility]) [address] [place] [address] [place] Bilirubin [Mass/Vol] 0.5 mg/dL Normal 0.2-1.3 [facility] Comment on above: Performed By: #### L [id number] #### Personal Development Mentor: LENORE ESCOBAR ([id number]) [facility] [address] [place] [address] Calcium [Mass/Vol] 10.5 mg/dL High 8.4-10.4 [facility] Comment on above: Performed By: #### L [id number] #### Personal Development Mentor: LENORE ESCOBAR ([id number]) [facility] ([facility]) [address] [place] [address] [place] Chloride [Moles/Vol] 109 mmol/L High 98-107 [facility] Comment on above: Performed By: #### L [id number] #### Personal Development Mentor: LENORE ESCOBAR ([id number]) [facility] ([facility]) [address] [place] [address] [place] CO2 [Moles/Vol] 20 mmol/L Low 22-30 [facility] Comment on above: Performed By: #### L [id number] #### Personal Development Mentor: LENORE ESCOBAR ([id number]) [facility] ([facility]) [address] [place] [address] [place] Creatinine [Mass/Vol] 1.20 mg/dL Normal 0.66-1.25 [facility] Comment on above: Performed By: #### L [id number] #### Personal Development Mentor: LENORE ESCOBAR ([id number]) [facility] ([facility]) [address] [place] [address] [place] GLOMERULAR FILTRATION RATE ML/MIN/1.73 SQ M.PREDICTED 68.8 mL/min/1.73m*2 Normal >60.0 [facility] Comment on above: Result Comment: Calc ulation based on the Chronic Kidney Disease Epidemiology Collaboration (CKD-EPI) equation refit without adjustment for race Performed By: #### L [id number] #### Personal Development Mentor: LENORE ESCOBAR ([id number]) [facility] [address] [place] [address] Glucose [Mass/Vol] 113 mg/dL High 70-100 [facility] Comment on above: Performed By: #### L [id number] #### Personal Development Mentor: LENORE ESCOBAR ([id number]) [facility] ([facility]) [address] [place] [address] Potassium [Moles/Vol] 4.5 mmol/L Normal 3.5-5.1 [facility] Comment on above: Performed By: #### L [id number] #### Personal Development Mentor: LENORE ESCOBAR ([id number]) [facility] [address] [place] [address] Protein [Mass/Vol] 7.9 g/dL Normal 6.3-8.2 [facility] Comment on above: Performed By: #### L [id number] #### Personal Development Mentor: LENORE ESCOBAR ([id number]) [facility] ([facility]) [address] [place] [address] Sodium [Moles/Vol] 140 mmol/L Normal 135-145 [facility] Comment on above: Performed By: #### L [id number] #### Personal Development Mentor: LENORE ESCOBAR ([id number]) [facility] ([facility]) [address] [place] [address] [place] Urea nitrogen [Mass/Vol] 20 mg/dL Normal 9-20 [facility] Comment on above: Performed By: #### L [id number] #### Personal Development Mentor: LENORE ESCOBAR ([id number]) [facility] [address] [place] [address] Comprehensive metabolic 1998 panelon 01-03-2023 Albumin [Mass/Vol] [...] (S/P/Bld) [Vol rate/Area] 68.8 mL/min/{1.73_m2} - PINF [facility] Comment on above: Calculation based on the Chronic Kidney Disease Epidemiology Collaboration (CKD-EPI) equation refit without adjustment for race Glucose [Mass/Vol] 113 mg/dL High 70 - 100 mg/dL [facility] Interpretation and review of laboratory results Abnormal [facility] Potassium [Moles/Vol] 4.5 mmol/L 3.5 - 5.1 mmol/L [facility] Protein [Mass/Vol] 7.9 g/dL 6.3 - 8.2 g/dL [facility] Sodium [Moles/Vol] 140 mmol/L 135 - 145 mmol/L [facility] Urea nitrogen [Mass/Vol] 20 mg/dL 9 - 20 mg/dL [facility] FOLLICLE STIMULATING HORMONE on 01-03-2023 FOLLICLE STIM HORMONE 7.3 mIU/mL Normal [facility] Comment on above: Result Comment: JULISSA Issa COMMENTS: Females: Follicular Phase ...... 2.0-11.6 Mid-cycle Peak ........ 5.1-23.4 Luteal Phase .......... 1.4-9.6 Post-menopausal ....... 21.5-131.0 Males: 1.6-9.7 Performed By: #### L [id number] #### Personal Development Mentor: LENORE ESCOBAR ([id number]) [facility]) [address] [place] [address] [place] FREE T4on 01-03-2023 Free T4 [Mass/Vol] 0.87 ng/dL Normal 0.78-2.19 [facility] Comment on above: Performed By: #### L [id number] #### Personal Development Mentor: LENORE ESCOBAR ([id number]) [facility] ([facility]) [address] [place] [address] Follicle stimulating hormone on 01-03-2023 Follitropin Qn 7.3 m[IU]/mL mIU/mL [facility] Females: Follicular Phase ...... 2.0-11.6 Mid-cycle Peak ........ 5.1-23.4 Luteal Phase .......... 1.4-9.6 Post-menopausal ....... 21.5-131.0 Males: 1.6-9.7 [facility] Free T4 [Mass/Vol]on 023 Free T4 Dialysis [Mass/Vol] 0.87 ng/dL 0.78 - 2.19 ng/dL [facility] Interpretation and review of laboratory results Normal [facility] HEMOGLOBIN AND HEMATOCRIT, B LOODon 01-03-2023 Hematocrit (Bld) [Volume fraction] 42.3 % Normal 40.0-52.0 [facility] Comment on above: Performed By: #### L [id number] #### Personal Development Mentor: LENORE ESCOBAR ([id number]) [facility] ([facility]) [address] [place] [address] Hemoglobin (Bld) [Mass/Vol] 14.4 g/dL Normal 13.0-18.0 [facility] Comment on above: Performed By: #### L [id number] #### Personal Development Mentor: LENORE ESCOBAR ([id number]) [facility] ([facility]) [address] Hemoglobin (Bld) [Mass/Vol]o n 01-03-2023 Hematocrit (Bld) [Volume fraction] 42.3 % 40.0 - 52.0 % [facility] Interpretation and review of laboratory results Normal [facility] Hemoglobin and hematocrit, b loodon 01-03-2023 Hemoglobin (Bld) [Mass/Vol] 14.4 g/dL 13.0 - 18.0 g/dL [facility] LUTEINIZING HORMONEon 2022 LUTEINIZING HORMONE 4.8 mIU/mL Normal [facility] Comment on above: Result Comment: Fema les: Follicular Phase ...... 1.9-26.2 Mid-Cycle Peak ........ 22.8-76.1 Luteal Phase .......... 0.6-16.6 Post-menopausal ....... 8.6-61.8 (Not on MHT) Males: 1.2-10.6 Performed By: #### L [id number] #### Personal Development Mentor: LENORE ESCOBAR ([id number]) [facility] ([facility]) [address] [place] [address] Luteinizing hormoneon 2022 Lutropin Qn 4.8 m[IU]/mL mIU/mL [facility] Comment on above: Females: Follicular Phase ...... 1.9-26.2 Mid-Cycle Peak ........ 22.8-76.1 Luteal Phase .......... 0.6-16.6 Post-menopausal ....... 8.6-61.8 (Not on MHT) Males: 1.2-10.6 No Panel Informationon 01-03 [facility] PROLACTINon 01-03-2023 PROLACTIN 29.4 ng/mL High 4.0-18.0 [facility] Comment on above: Result Comment: ORDE R COMMENTS: Values below 35 ng/mL may be of doubtful significance. Recommend send-out testing to rule out macroprolactin to confirm the result. Performed By: #### L [id number] #### Personal Development Mentor: LENORE ESCOBAR ([id number]) [facility] ([facility]) [address] [place] [address] PSA TOTAL (SCREENING)on PROSTATE SPECIFIC AG SCREEN 0.2 ng/mL Normal <4.0 [facility] Comment on above: Result Comment: JULISSA Issa COMMENTS: Testing performed on the Samba TV i using the chemiluminescent microparticle immunoassay method. Results obtained by different methods should not be used interchangeably. PSA result is based on a new assay run on a new instrument and the results may not be comparable with assays run prior to 11/13/2022. Performed By: #### L [id number] #### Personal Development Mentor: LENORE ESCOBAR ([phone]) [facility] ([facility]) [address] [place] [address] PSA Total (Screening)on Interpretation and review of laboratory results Normal [facility] Prostate specific Ag [Mass/Vol] 0.2 ng/mL NINF - 4.0 ng/mL [facility] IQ Testing performed on the Samba TV i using the chemiluminescent microparticle immunoassay method. Results obtained by different methods should not be used interchangeably. PSA result is based on a new assay run on a new instrument and the results may not be comparable with assays run prior to 11/13/2022. [facility] PTH INTACTon 01-03-2023 PTH, INTACT 51.7 pg/mL Normal 7.5-53.5 [facility] Comment on above: Performed By: #### L [id number] #### Personal Development Mentor: LENORE ESCOBAR ([id number]) [facility] ([facility]) [address] [place] [address] PTH, intacton 01-03-2023 Parathyrin.intact [Mass/Vol] 51.7 pg/mL 7.5 - 53.5 pg/mL [facility] Parathyrin.intact [Mass/Vol] on 01-03-2023 Interpretation and review of laboratory results Normal [facility] Prolactinon 01-03-2023 Interpretation and review of laboratory results Abnormal [facility] Prolactin [Mass/Vol] 29.4 ng/mL High 4.0 - 1 8.0 ng/mL [facility] Values below 35 ng/m L may be of doubtful significance. Recommend send-out testing to rule out macroprolactin to confirm the result. [facility] TESTOSTERONEon 01-03-2023 Testosterone [Mass/Vol] 103 ng/dL Normal 72-623 S [facility] Comment on above: Performed By: #### L [id number] #### Personal Development Mentor: LENORE ESCOBAR ([id number]) [facility] ([facility]) [address] [place] [address] THYROID STIMULATING HORMONEo n 01-03-2023 THYROID STIMULATING HORMONE 2.568 uIU/mL Normal 0.465-4.680 [facility] Comment on above: Performed By: #### L [id number] #### Personal Development Mentor: LENORE ESCOBAR ([id number]) [facility] ([facility]) [address] [place] [address] TSHon 01-03-2023 TSH Qn 2.568 m[IU]/L [facility] TSH Qnon 01-03-2023 Interpretation and review of laboratory results Normal [facility] Testosteroneon 01-03-2023 Interpretation and review of laboratory results Normal [facility] Testosterone [Mass/Vol] 103 ng/dL 72 - 623 ng/dL [facility] VITAMIN D DEFICIENCY SCREENI NG (VIT D 25)on 01-03-2023 VIT D 25-OH, TOTAL 33 ng/mL Normal 30-100 [facility] Comment on above: Result Comment: JULISSA Issa COMMENTS: Therapy is based on measurement of Total 25-OHD with the following classification levels: Less than 20 ng/mL: Indicative of Vit D deficiency 20-30 ng/mL: Suggests Vit D insufficiency Optimal: Greater than or equal to 30 ng/mL Test performed by [employer] Competitive Immunoassay, measuring Total Vitamin D, not individual fractions. Performed By: #### L [id number] #### Personal Development Mentor: LENORE ESCOBAR ([id number]) [facility] ([facility]) [address] [place] [address] Vitamin D Deficiency Screeni ng (Vit D 25)on 01-03-2023 25-hydroxyvitamin D3 [Mass/Vol] 33 ng/mL 30 - 100 ng/mL [facility] 36on 01-02-2023 36 called and spoke wit h pharmacist, insurance will not cover a 90-day supply right now but will cover a 30-day supply. Prescription for 30 days sent to the pharmacy, informed patient. [facility] 36 Pt called and states that pharmacy refuses to refill the cabergoline Script that you sent in today. States that they can not refill until 01/24/23 and he will be without medication for 2 weeks by that point and will also be out of town on that date. Pt requesting a call back CHANCE. Normal [facility] Office Visiton 01-02-2023 Follow-up visit [id number] Flower Queen 1960 [facility] Provider Department [place] 01/02/2023 [id number]-WOMOOSHZPROCIO SCHUSTERSHMG SB END None Family History Adopted: Yes Problem Relation Age of Onset No Known Problems Father Cancer Mother Comments: lung Family Status - Relation Status Age at Father Mother Level of Service:35081 [place] OFFICE/OUTPATIENT ESTABLISHED MOD MDM 30-39 MIN Reason for Visit and Comments: Follow-up [550850] Hypothyroidism [143] pituitary macroprolactinoma [Other] [facility] Follow-up visit [id number] Flower Queen 1960 [facility] Provider Department Center 01/02/2023 [id number]-RORQPAZIGGY VÁZQUEZ SHMG GIACOMO BAR None Family History Adopted: Yes Problem Relation Age of Onset No Known Problems Father Cancer Mother Comments: lung Family Status - Relation Status Age at Father Mother Level of Service:88629 [place] OFFICE/OUTPATIENT ESTABLISHED LOW MDM 20-29 MIN Reason for Visit and Comments: Post-op [483] - 1st po L iliofemoral DVT thrombectomy 12/21/22 [facility] Progress Noteon 01-02-2023 Progress Note [facility] ENDOCRINOLOGY [address] [facility] [address] [facility] [address] Dept: [phone] Dept Loc: [phone] Visit type: Established Reason for Visit: Follow-up, [...] Cheryl Basilio MD Referring is PCP Previous Account Maintenance Representative: Dr Sal & Dr Benito [facility] office visit: 2013 Last office visit: [...] is supposed to have followed up with ed case manager Dr. Monge , but has missed his [...] (Triglide) 160 (more content not included)... Normal [facility] Progress Note 01/02/2023 Corrie Queen 1960 [...] guarantee Follow up for any concerns. . [facility] Progress Noteon 12-31-2022 Progress Note Chart reviewed of ED follow up Seen in [facility] ED on 12/25/2022 Reason: Bleeding post-op [...] Davonte SANDERSON Vascular surgery. Seen in [facility] on 12/22/22 for Flank pain was seen she has been in contact with her PCP. On 12/25/22 she was admitted for Sebaceous cyst of left eyelid. [facility] 36on 12-26-2022 36 Left detailed VM per patient request to inform. [facility] 36 Pt just had surgery yesterday--planned OV 01/02 Would advise patient wait until evaluated at post op appointment [facility] 36 Patient had L leg [...] vein. Next OV 01/02/[address] Arauz[address] [facility] [id number] 12-25-2022 [id number] Patient upset jaceyin g to leave,eye drops called to his pharmacy, patient transported out via w/c with the daughter [facility] [id number] Patient post bedrest is complains of left eye pain and light sensitivity, upon attempting to open the eye, Dr Cornelius contacted and re recommends eye oint for 2 days and follow up with eye MD if no better in 2 days , Resident Pacheco Santiago notified they will place new orders. [facility] [id number] Discharge instructions reviewed with the patient and the daughter, patient to follow up with after discharge, no further questions , patient instructed on surgical site care. [facility] [id number] Family notified of arrival to [facility] 36on 12-25-2022 36 Mychart message sent [facility] ED Nursing Noteon 12-25-2022 ED Nursing Note Bleeding subsided. P t given dc instructions and follow up care. Pt verbalizes understanding. Pt amb indep to dc area, home w family [facility] ED Nursing Note Patient ambulatory [...] preparing for surgery. Call light in reach. [facility] ED Provider Noteon ED Provider Note Emergency Department Encounter [facility] ED Patient: Corrie Queen : 1960 [...] [employer] Pacheco Ortiz MD 12/25/22 2017 [facility] [place] GUIDANCE OR USE ONLY - NO N RESULTABLEon 12-25-2022 There is no interpretation needed for this exam. 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 [facility] 36on 12-24-2022 36 Urinalysis and urine culture still show no signs of infection. Thanks [facility] 36 Name of caller: Flower Queen Contact phone number: [phone] Relationship to Patient: patient Provider: Dr. Basilio [...] business hours to return their call: Yes [facility] 36 Name of caller: Flower Queen Contact phone number: [phone] Relationship to Patient: patient Provider: Dr. Basilio [...] hours to return their call: Yes Normal [facility] 36on 12-22-2022 36 S: Patient spoke [...] seen at beginning of the week in [place]. Urine was negative at that time. Was [...] Patient verbalizes understanding. States will go to [facility] ED because has not had luck at [facility]. Instructed to call back with any further questions or concerns. Reason for Disposition [1] Abdominal pain AND [2] age > 60 years Protocols used: Flank [id number] Normal [facility] BASIC METABOLIC PANELon 11-26 Anion gap [Moles/Vol] 10 mmol/L Normal 3-13 [facility] Comment on above: Performed By: #### L [id number] #### Personal Development Mentor: LENORE ESCOBAR ([id number]) [facility] ([facility]) [address] Calcium [Mass/Vol] 10.5 mg/dL High 8.4-10.4 [facility] Comment on above: Performed By: #### L [id number] #### Personal Development Mentor: LENORE ESCOBAR ([id number]) [facility] [address] [place] [address] Chloride [Moles/Vol] 109 mmol/L High 98-107 [facility] Comment on above: Performed By: #### L [id number] #### Personal Development Mentor: LENORE ESCOBAR ([id number]) [facility] [address] [place] [address] CO2 [Moles/Vol] 22 mmol/L Normal 22-30 [facility] Comment on above: Performed By: #### L [id number] #### Personal Development Mentor: LENORE ESCOBAR ([id number]) [facility] [address] [place] [address] Creatinine [Mass/Vol] 1.18 mg/dL Normal 0.66-1.25 [facility] Comment on above: Performed By: #### L [id number] #### Personal Development Mentor: LEONRE ESCOBAR ([id number]) [facility] ([facility]) [address] [place] [address] GLOMERULAR FILTRATION RATE ML/MIN/1.73 SQ M.PREDICTED 70.2 mL/min/1.73m*2 Normal >60.0 [facility] Comment on above: Result Comment: Calc ulation based on the Chronic Kidney Disease Epidemiology Collaboration (CKD-EPI) equation refit without adjustment for race Performed By: #### L [id number] #### Personal Development Mentor: LENORE ESCOBAR ([id number]) [facility] [address] [place] [address] [place] Glucose [Mass/Vol] 104 mg/dL High 70-100 [facility] Comment on above: Performed By: #### L [id number] #### Personal Development Mentor: LENORE ESCOBAR ([id number]) [facility] [address] [place] [address] [place] Potassium [Moles/Vol] 4.1 mmol/L Normal 3.5-5.1 [facility] Comment on above: Performed By: #### L [id number] #### Personal Development Mentor: LENORE ESCOBAR ([id number]) [facility] ([facility]) [address] [place] [address] Sodium [Moles/Vol] 142 mmol/L Normal 135-145 [facility] Comment on above: Performed By: #### L [id number] #### Personal Development Mentor: LENORE ESCOBAR ([id number]) [facility] [address] [place] [address] Urea nitrogen [Mass/Vol] 18 mg/dL Normal 9-20 [facility] Comment on above: Performed By: #### L [id number] #### Personal Development Mentor: LENORE ESCOBAR ([id number]) [facility] [address] [place] [address] Basic metabolic 1998 panelon 12-22-2022 Anion gap [...] (S/P/Bld) [Vol rate/Area] 70.2 mL/min/{1.73_m2} - PINF [facility] Comment on above: Calculation based on the Chronic Kidney Disease Epidemiology Collaboration (CKD-EPI) equation refit without adjustment for race Glucose [Mass/Vol] 104 mg/dL High 70 - 100 mg/dL [facility] Interpretation and review of laboratory results Abnormal [facility] Potassium [Moles/Vol] 4.1 mmol/L 3.5 - 5.1 mmol/L [facility] Sodium [Moles/Vol] 142 mmol/L 135 - 145 mmol/L [facility] Urea nitrogen [Mass/Vol] 18 mg/dL 9 - 20 mg/dL [facility] CBC W Auto Differential pane l (Bld)Ordered By: Akila Denson on 12-22-2022 Basophils (Bld) [#/Vol] 0.0 10*3/uL 0.0 - 0.2 10*3/uL [facility] Basophils/100 WBC (Bld) 0.7 % 0.0 - 2.0 % [facility] Eosinophils (Bld) [#/Vol] 0.2 10*3/uL 0. 0 - 0.5 10*3/uL [facility] Eosinophils/100 WBC (Bld) 3.4 % 1.0 - 6.0 % [facility] Erythrocyte distribution width (RBC) [Ratio] 14.0 % 11.5 - 14.5 % [facility] Hematocrit (Bld) [Volume fraction] 41.6 % 40.0 - 52.0 % [facility] Hemoglobin (Bld) [Mass/Vol] 14.1 g/dL 13.0 - 18.0 g/dL [facility] Immature granulocytes (Bld) [#/Vol] 0.0 10*3/uL NINF - 0.0 10*3/uL [facility] Immature granulocytes/100 WBC (Bld) 0.2 % High NINF - 0.0 % [facility] Interpretation and review of laboratory results Abnormal [facility] th Lymphocytes (Bld) [#/Vol] 1.7 10*3/uL 1. 0 - 4.3 10*3/uL [facility] Lymphocytes/100 WBC (Bld) 30.9 % 20 .0 - 40.0 % [facility] MCH (RBC) [Entitic mass] 31.2 pg 26. 0 - 34.0 pg [facility] MCHC (RBC) [Mass/Vol] 33.9 % 32.0 - 36.0 % [facility] MCV (RBC) [Entitic vol] 92.0 fL 80.0 - 98.0 fL [facility] Monocytes (Bld) [#/Vol] 0.5 10*3/uL 0.0 - 0.8 10*3/uL [facility] Monocytes/100 WBC (Bld) 8.8 % [...] [#/Vol] 5.4 10*3/uL 3.6 - 10.7 10*3/uL [facility] CBC WITH AUTO DIFFERENTIALon 12-22-2022 Basophils (Bld) [#/Vol] 0.0 10*3/uL Normal 0.0-0.2 [facility] Comment on above: Performed By: #### L [id number] #### Personal Development Mentor: LENORE ESCOBAR ([id number]) [facility] ([facility]) [address] [place] [address] [place] Basophils/100 WBC (Bld) 0.7 % Normal 0.0-2.0 S [facility] Comment on above: Performed By: #### L [id number] #### Personal Development Mentor: LENORE ESCOBAR ([id number]) [facility] ([facility]) [address] [place] [address] [place] Eosinophils (Bld) [#/Vol] 0.2 10*3/uL Normal 0.0-0.5 [facility] Comment on above: Performed By: #### L [id number] #### Personal Development Mentor: LENORE ESCOBAR ([id number]) [facility] ([facility]) [address] [place] [address] [place] Eosinophils/100 WBC (Bld) 3.4 % Normal 1.0-6.0 [facility] Comment on above: Performed By: #### L [id number] #### Personal Development Mentor: LENORE [id number]) [facility] ([facility]) [address] [place] [address] Erythrocyte distribution width (RBC) [Ratio] 14.0 % Normal 11.5-14.5 [facility] Comment on above: Performed By: #### L [id number] #### Personal Development Mentor: LENORE ESCOBAR ([id number]) [facility] ([facility]) [address] [place] [address] ERYTHROCYTE MEAN CORPUSCULAR HEMOGLOBIN CONCENTRATION (G/DL) BY AUTOMATED 33.9 % Normal 32.0-36.0 [facility] Comment on above: Performed By: #### L [id number] #### Personal Development Mentor: LENORE ESCOBAR ([id number]) [facility] ([facility]) [address] [place] [address] Hematocrit (Bld) [Volume fraction] 41.6 % Normal 40.0-52.0 [facility] Comment on above: Performed By: #### L [id number] #### Personal Development Mentor: LENORE ESCOBAR ([id number]) [facility] ([facility]) [address] [place] [address] Hemoglobin (Bld) [Mass/Vol] 14.1 g/dL Normal 13.0-18.0 [facility] Comment on above: Performed By: #### L [id number] #### Personal Development Mentor: LENORE ESCOBAR ([id number]) [facility] ([facility]) [address] [place] [address] IMMATURE GRANS (10*3/UL) IN BLOOD BY AUTOMATED COUNT 0.0 10*3/uL Normal <=0.0 [facility] Comment on above: Performed By: #### L [id number] #### Personal Development Mentor: LENORE ESCOBAR ([id number]) [facility] ([facility]) [address] [place] [address] IMMATURE GRANS/100 LEUKOCYTES IN BLOOD BY AUTOMATED COUNT 0.2 % High <=0.0 [facility] Comment on above: Performed By: #### L [id number] #### Personal Development Mentor: LENORE ESCOBAR ([id number]) [facility] ([facility]) [address] [place] [address] Lymphocytes (Bld) [#/Vol] 1.7 10*3/uL Normal 1.0-4.3 [facility] Comment on above: Performed By: #### L [id number] #### Personal Development Mentor: LENORE ESCOBAR ([id number]) [facility] ([facility]) [address] [place] [address] Lymphocytes/100 WBC (Bld) 30.9 % Normal 20.0-40.0 [facility] Comment on above: Performed By: #### L [id number] #### Personal Development Mentor: LENORE ESCOBAR ([id number]) [facility] ([facility]) [address] [place] [address] MCH (RBC) [Entitic mass] 31.2 pg Normal 26.0-34.0 [facility] Comment on above: Performed By: #### L [id number] #### Personal Development Mentor: LENORE ESCOBAR ([id number]) [facility] ([facility]) [address] [place] [address] MCV (RBC) [Entitic vol] 92.0 fL Normal 80.0-98.0 S [facility] Comment on above: Performed By: #### L [id number] #### Personal Development Mentor: LENORE ESCOBAR ([id number]) [facility] ([facility]) [address] [place] [address] Monocytes (Bld) [#/Vol] 0.5 10*3/uL Normal 0.0-0.8 [facility] Comment on above: Performed By: #### L [id number] #### Personal Development Mentor: LENORE ESCOBAR ([id number]) [facility] ([facility]) [address] [place] [address] Monocytes/100 WBC (Bld) 8.8 % Normal 2.0-10.0 S [facility] Comment on above: Performed By: #### L [id number] #### Personal Development Mentor: LENORE ESCOBAR ([id number]) [facility] ([facility]) [address] [place] [address] Neutrophils (Bld) [#/Vol] 3.0 10*3/uL Normal 1.8-7.0 [facility] Comment on above: Performed By: #### L [id number] #### Personal Development Mentor: LENORE ESCOBAR ([id number]) [facility] ([facility]) [address] [place] [address] Neutrophils/100 WBC (Bld) 56.0 % Normal 40.0-80.0 [facility] Comment on above: Performed By: #### L [id number] #### Personal Development Mentor: LENORE ESCOBAR ([id number]) [facility] ([facility]) [address] [place] [address] Platelet mean volume (Bld) [Entitic vol] 9.1 fL Normal 7.4-12.4 [facility] Comment on above: Result Comment: MPV is a calculated measurement using platelet volume ratio Performed By: #### L [id number] #### Personal Development Mentor: LENORE ESCOBAR ([id number]) [facility] ([facility]) [address] [place] [address] PLATELETS (10*3/UL) IN BLOOD AUTOMATED COUNT 243 10*3/uL Normal 140-440 [facility] Comment on above: Performed By: #### L [id number] #### Personal Development Mentor: LENORE ESCOBAR ([id number]) [facility] ([facility]) [address] [place] [address] RBC (Bld) [#/Vol] 4.52 10*6/uL Normal 4.40-5.90 [facility] Comment on above: Performed By: #### L [id number] #### Personal Development Mentor: LENORE ESCOBAR ([id number]) [facility] ([facility]) [address] [place] [address] WBC (Bld) [#/Vol] 5.4 10*3/uL Normal 3.6-10.7 [facility] Comment on above: Performed By: #### L [id number] #### Personal Development Mentor: LENORE ESCOBAR ([id number]) [facility] ([facility]) [address] [place] [address] COMPLETE URINALYSISon 2022 BILIRUBIN, TOTAL PRESENCE IN URINE Negative Normal Negative [facility] Comment on above: Performed By: #### L [id number] #### Personal Development Mentor: LENORE ESCOBAR ([id number]) [facility] ([facility]) [address] [place] [address] Clarity (U) Clear Normal Clear [facility] Comment on above: Performed By: #### L [id number] #### Personal Development Mentor: LENORE ESCOBAR ([id number]) [facility] ([facility]) [address] [place] [address] Color (U) Light Yellow Normal Lt. Yellow [facility] Comment on above: Performed By: #### L [id number] #### Personal Development Mentor: LENORE ESCOBAR ([id number]) [facility] ([facility]) [address] [place] [address] GLUCOSE (MG/DL) IN URINE Normal Normal Nor mal (<70) [facility] Comment on above: Performed By: #### L [id number] #### Personal Development Mentor: LENORE ESCOBAR ([id number]) [facility] ([facility]) [address] [place] [address] HEMOGLOBIN PRESENCE IN URINE Negative Normal Negative [facility] Comment on above: Performed By: #### L [id number] #### Personal Development Mentor: LENORE ESCOBAR ([id number]) [facility] ([facility]) [address] [place] [address] Ketones Ql (U) Negative Normal Negative [facility] Comment on above: Performed By: #### L [id number] #### Personal Development Mentor: LENORE ESCOBAR ([id number]) [facility] ([facility]) [address] [place] [address] [place] LEUKOCYTE ESTERASE PRESENCE IN URINE BY TEST STRIP Negative Normal Negative [facility] Comment on above: Performed By: #### L [id number] #### Personal Development Mentor: LENORE ESCOBAR ([id number]) [facility] ([facility]) [address] [place] [address] NITRITE PRESENCE IN URINE Negative Normal Negative [facility] Comment on above: Performed By: #### L [id number] #### Personal Development Mentor: LENORE ESCOBAR ([id number]) [facility] ([facility]) [address] [place] [address] pH (U) 5.5 [pH] Normal 5.0-8.0 [facility] Comment on above: Performed By: #### L [id number] #### Personal Development Mentor: LENORE ESCOBAR ([id number]) [facility] ([facility]) [address] [place] [address] Protein (U) [Mass/Vol] Negative Normal Negative [facility] Comment on above: Performed By: #### L [id number] #### Personal Development Mentor: LENORE ESCOBAR ([id number]) [facility] ([facility]) [address] [place] [address] Specific gravity (U) [Rel density] 1.016 Normal 1.005-1.030 [facility] Comment on above: Performed By: #### L [id number] #### Personal Development Mentor: LENORE ESCOBAR ([id number]) [facility] ([facility]) [address] [place] [address] UROBILINOGEN (MG/DL) IN URINE Normal Normal Normal (0-1) [facility] Comment on above: Performed By: #### L [id number] #### Personal Development Mentor: LENORE ESCOBAR ([phone]) [facility] ([facility]) [address] [place] [address] ED Nursing Noteon 12-22-2022 ED Nursing Note Informed Dr. Rodas s the pt was prescribed Cipro yesterday by Dr. Basilio. Pt had not previously mentioned this to ED providers. Dr. Negron at bedside again speaking with pt. Estefany Dunlap, RN 12/22/22 0813 Normal [facility] ED Nursing Note Pt ambulatory to [...] He states he saw Dr. Perales (per [facility] he went to the office and had a negative UA 12/18 but no record of an actual visit with Dr. Perales) and pt seems upset it was not sent for culture. Per [facility] the pt placed calls to the office/[facility] CAC stating he needed IV abx specifically but was advised this is not indicated for negative UA. He then saw Dr. Basilio in [place] yesterday and had another UA as well [...] distress noted. Pt negative/irritable during triage. Normal [facility] ED Provider Noteon ED Provider Note [...] culture pending KUB and ultrasound unremarkable per [facility]. Patient is concerned that he has [...] pituitary gland and craniopharyngeal duct (pouch) ([facility]) Chest pain, unspecified Chills 05/28/2022 Chronic flank pain Chronic pain Diverticulitis DVT (deep venous thrombosis) ([facility]) 2022 left leg Esophageal reflux Essential [...] ALLERGIES Meperidine (more content not included)... Normal [facility] LACTIC ACID WITH REFLEXon Lactate [Moles/Vol] 1.2 mmol/L Normal 0.7-2.0 [facility] Comment on above: Performed By: #### L [id number] #### Personal Development Mentor: LENORE ESCOBAR ([id number]) [facility] ([facility]) [address] [place] [address] Laboratory - Chemistry and C hemistry - challengeon 12-22-2022 Lactate [Moles/Vol] 1.2 mmol/L 0.7 - 2. 0 mmol/L [facility] No Panel Informationon 12-22 Interpretation and review of laboratory results Normal [facility] Urinalysis complete panel (U )on 12-22-2022 Bilirubin Ql (U) Negative Negative mg/dL [facility] Clarity (U) Clear Clear [facility] Color (U) Light Yellow Lt. Yellow [facility] Glucose Ql (U) Normal Normal (<70) mg/dL [facility] Hemoglobin Ql (U) Negative Negative mg/dL [facility] Interpretation and review of laboratory results Normal [facility] Ketones (U) [Mass/Vol] Negative Negat bharathi mg/dL [facility] Leukocyte esterase Test strip Ql (U) Negative Negative Irina/uL [facility] Nitrite Ql (U) Negative Negative [facility] th pH (U) 5.5 [pH] 5.0 - 8.0 pH [facility] Protein (U) [Mass/Vol] Negative Negat bharathi mg/dL [facility] Specific gravity (U) [Rel density] 1.016 1.005 - 1.030 [facility] Urobilinogen (U) [Mass/Vol] Normal Normal (0-1) mg/dL [facility] 36on 12-21-2022 36 S: Patient spoke bhargav [facility] nurse regarding kidney infection B: Onset of [...] or awakens from sleep) Protocols used: Flank Auqp-LTVOV-GS Normal [facility] Office Visiton 12-21-2022 Follow-up visit [id number] [place] 1960 M Date Provider Department Center 12/21/2022 [id number] ERICKSON [facility] Family History Adopted: Yes Problem Relation Age of Onset No Known Problems Father Cancer Mother Comments: lung Family Status - Relation Status Age at Father Mother Level of Service:57001 [place] OFFICE/OUTPATIENT ESTABLISHED LOW [facility] 20-29 MIN Reason for Visit and Comments: OTHER [Other] - Pain right side back Normal [facility] Progress Noteon 12-21-2022 Progress Note [facility] INTERNAL MEDICINE [address] [facility] [address] [facility] [address] Dept: [phone] Dept Loc: [phone] Visit type: Established patient Reason for Visit: [...] pituitary gland and craniopharyngeal duct (pouch) ([facility]) Chest pain, unspecified Chills 05/28/2022 Diverticulitis DVT (deep venous thrombosis) ([facility]) 2022 left leg Esophageal reflux Essential [...] (109 kg (more content not included)... Normal [facility] US RETROPERITONEALon 023 US RETROPERITONEAL Patient [...] Signed Date/Time: 12/21/2022 1:07 PM EDT [facility] Retroperitoneumon 023 No hydronephrosis or echogenic shadowing renal calculi. Bilateral renal cysts including right parapelvic cyst and left simple cortical cysts. Report Dictated on Electronically Signed By: Jesús Danielson MD Electronically Signed Date/Time: 12/21/2022 1:07 PM EDT [facility] Patient Name: CORRIE QUEEN : 1960 [...] upper pole. Bladder: Underdistended and suboptimally assessed. [facility] Jesús Danielson MD - 12/21/2022 [facility] Name[facility] 1960 [id number] Exam Date/Time: 12/21/2022 13:05 Procedure: US RETROPERITONEAL [...] EDT [facility] Radiology Study observation (narrative) [facility] alth US RetroperitoneumOrdered By : Jesús Danielson on 12-21-[address] [facility] [employer] Work Phone: XR Abdomen Single viewon Gas-filled [...] Electronically Signed Date/Time: 12/21/2022 1:08 PM EDT [facility] Patient Name: CORRIE QUEEN : 1960 Exam Date/Time: 12/21/2022 12:51 Procedure: XR ABDOMEN 1 VIEW Ordering Provider: BASILIO MICHAEL Reason For Exam: R flank pain ABDOMEN, 1 VIEW. CLINICAL INFORMATION: Right flank pain TECHNIQUE: Supine abdomen, 2 image(s) COMPARISON: Concurrent ultrasound 12/21/2022, CT 09/14/2022 RESULT: See impression. [facility] Jesús Danielson MD - 12/21/2022 Patient [...] Signed Date/Time: 12/21/2022 1:08 PM EDT [facility] [employer] Radiology Study observation (narrative) [facility] alth XR Abdomen Single viewOrdere d By: Jesús Danielson on 12-21-2022 [place] [employer] Work Phone: 36on 12-18-2022 36 [facility] Inct message sent Normal [facility] 36 Please schedule visi t to discuss. Thanks [facility] 36on 12-17-2022 36 S: Patient [...] call back with new or worsening symptoms. [facility] 36 . Reason for Disposition MODERATE pain (e.g., interferes with normal activities or awakens from sleep) Protocols used: Flank Ljeg-OAWUP-IB [facility] 36 Notified Corrie. [facility] 36 Urine is completely clear, there is no blood or white blood cells in his urine I am not sure why he is having his pain. This does not look like any type of urinary tract infection. To see urology if he continues to have problems, I have nothing else to offer him at this time. [facility] 36 Pt reported that he was scheduled with urology last week but missed the appointment d/t needing to be seen for the blood clot. Advised him we need to get him in with urology chance after his surgery. UA results on your desk and order pended. [facility] 36 Patient stopped in and [...] issue he is having fixed before then. [facility] Urinalysis macro (dipstick) panel (U)on 12-17-2022 Bilirubin, UA Negative [facility] h Blood, UA Negative [facility] Glucose, UA Negative [facility] Interpretation and review of laboratory results Normal [facility] Ketones, UA Negative [facility] Leukocytes, UA Negative [facility] Nitrite, UA Negative [facility] pH, UA 6.0 [facility] Protein, UA Negative [facility] Spec Grav, UA 1.030 [facility], UA 0.[address] [facility] He alth [facility] ECG 12-LEADon 12-16-2022 ECG 12-LEAD IMPRESSION: Sinus bradycardia Inferior infarct, old Electronically Signed On 12-16-2022 14:01:05 EDT by Alyssa Ag Normal [facility] 36on 12-14-[address] lung screen at this time due to having other health issues that he is dealing with right now. 12/14/22 SK Normal [facility] BASIC METABOLIC PANELon 11-25 Anion gap [Moles/Vol] 9 mmol/L Normal 3-13 [facility] Comment on above: Performed By: #### L [id number] #### Personal Development Mentor: LENORE ESCOBAR ([phone]) [facility]) [address] [place] [address] Calcium [Mass/Vol] 11.2 mg/dL High 8.4-10.4 [facility] Comment on above: Performed By: #### L [id number] #### Personal Development Mentor: LENORE ESCOBAR ([id number]) [facility]) [address] [place] [address] Chloride [Moles/Vol] 105 mmol/L Normal 98-107 [facility] Comment on above: Performed By: #### L [id number] #### Personal Development Mentor: LENORE ESCOBAR ([id number]) [facility] ([facility]) [address] [place] [address] [place] CO2 [Moles/Vol] 25 mmol/L Normal 22-30 [facility] Comment on above: Performed By: #### L [id number] #### Personal Development Mentor: LENORE ESCOBAR ([id number]) [facility]) [address] [place] [address] Creatinine [Mass/Vol] 1.53 mg/dL High 0.66-1.25 [facility] Comment on above: Performed By: #### L [id number] #### Personal Development Mentor: LENORE ESCOBRA ([phone]) [facility] ([facility]) [address] [place] [address] GLOMERULAR FILTRATION RATE ML/MIN/1.73 SQ M.PREDICTED 51.4 mL/min/1.73m*2 Low >60.0 [facility] Comment on above: Result Comment: Calc ulation based on the Chronic Kidney Disease Epidemiology Collaboration (CKD-EPI) equation refit without adjustment for race Performed By: #### L [id number] #### Personal Development Mentor: LENORE ESCOBAR ([id number]) [facility] ([facility]) [address] [place] [address] Glucose [Mass/Vol] 103 mg/dL High 70-100 [facility] Comment on above: Performed By: #### L [id number] #### Personal Development Mentor: LENORE ESCOBAR ([id number]) [facility]) [address] [place] [address] Potassium [Moles/Vol] 5.1 mmol/L Normal 3.5-5.1 [facility] Comment on above: Performed By: #### L [id number] #### Personal Development Mentor: LENORE ESCOBAR ([id number]) [facility] ([facility]) [address] [place] [address] Sodium [Moles/Vol] 139 mmol/L Normal 135-145 [facility] Comment on above: Performed By: #### L [id number] #### Personal Development Mentor: LENORE ESCOBAR ([id number]) [facility]) [address] [place] [address] Urea nitrogen [Mass/Vol] 20 mg/dL Normal 9-20 [facility] Comment on above: Performed By: #### L [id number] #### Personal Development Mentor: LENORE ESCOBAR ([id number]) [facility]) [address] [place] [address] BLOOD TYPE AND SCREEN GELon 12-13-2022 ABO GROUPING O Normal [facility] Comment on above: Performed By: #### L [id number] #### Personal Development Mentor: LENORE ESCOBAR ([id number]) [facility] ([facility]) [address] [place] [address] RH TYPE IN BLOOD Positive Normal [facility] Comment on above: Performed By: #### L [id number] #### Personal Development Mentor: LENORE ESCOBAR ([id number]) [facility] ([facility]) [address] [place] [address] CBC (HEMOGRAM)on 12-13-2022 Erythrocyte distribution width (RBC) [Ratio] 15.3 % High 11.5-14.5 [facility] Comment on above: Performed By: #### L [id number] #### Personal Development Mentor: LENORE ESCOBAR ([id number]) [facility] ([facility]) [address] [place] [address] ERYTHROCYTE MEAN CORPUSCULAR HEMOGLOBIN CONCENTRATION (G/DL) BY AUTOMATED 33.2 % Normal 32.0-36.0 [facility] Comment on above: Performed By: #### L [id number] #### Personal Development Mentor: LENORE ESCOBAR ([id number]) [facility] ([facility]) [address] [place] [address] Hematocrit (Bld) [Volume fraction] 43.8 % Normal 40.0-52.0 [facility] Comment on above: Performed By: #### L [id number] #### Personal Development Mentor: LENORE ESCOBAR ([phone]) [facility]) [address] [place] [address] Hemoglobin (Bld) [Mass/Vol] 14.5 g/dL Normal 13.0-18.0 [facility] Comment on above: Performed By: #### L [id number] #### Personal Development Mentor: LENORE ESCOBAR ([id number]) [facility] ([facility]) [address] [place] [address] MCH (RBC) [Entitic mass] 30.9 pg Normal 26.0-34.0 [facility] Comment on above: Performed By: #### L [id number] #### Personal Development Mentor: LENORE ESCOBAR ([id number]) [facility] ([facility]) [address] [place] [address] MCV (RBC) [Entitic vol] 92.8 fL Normal 80.0-98.0 S [facility] Comment on above: Performed By: #### L [id number] #### Personal Development Mentor: LENORE ESCOBAR ([id number]) [facility] [address] [place] [address] Platelet mean volume (Bld) [Entitic vol] 7.7 fL Normal 7.4-12.4 [facility] Comment on above: Performed By: #### L [id number] #### Personal Development Mentor: LENORE ESCOBAR ([id number]) [facility] ([facility]) [address] [place] [address] PLATELETS (10*3/UL) IN BLOOD AUTOMATED COUNT 235 10*3/uL Normal 140-440 [facility] Comment on above: Performed By: #### L [id number] #### Personal Development Mentor: LENORE ESOCBAR ([id number]) [facility] ([facility]) [address] [place] [address] RBC (Bld) [#/Vol] 4.71 10*6/uL Normal 4.40-5.90 [facility] Comment on above: Performed By: #### L [id number] #### Personal Development Mentor: LENORE ESCOBAR ([id number]) [facility] ([facility]) [address] [place] [address] WBC (Bld) [#/Vol] 5.5 10*3/uL Normal 3.6-10.7 [facility] Comment on above: Performed By: #### L [id number] #### Personal Development Mentor: LENORE ESCOBAR ([id number]) [facility] ([facility]) [address] [place] [address] PREPROCINSon 12-13-2022 PREPROCINS Medication List Accurate as [...] Please bring photo ID and insurance information. DISEASE MANAGEMENT NURSE AND PARKING IN THE MAIN DECK ARE [...] THE SAME DAY DESK AND CHECK IN. [facility] 36on 12-12-2022 36 SURGERY: LEFT ILIOFEMORAL DVT THROMBECTOMY AND STENTING 1 DATE OF SURGERY: 12/25/2022 10:30 AM PRE TESTIN12/13/2022 10:00 AM AUTH #: [id number] CARDIAC CLEARANCE NOT NEEDED POST OP OR OV: 01/07/2023 2:45 PM MEDS TO HOLD: NONE PT STATES NOT TAKING FUROSEMIDE MEDS TO CONTINUE: XARELTO DO NOT STOP [facility] 36 Noted and thank you. [facility] 36 Patient is currently scheduled for: Left Iliofemoral Deep Vein Thrombosis Thrombectomy & Stenting on 11/2722 at 1:30 pm. Patient would like to speak with Dr. Arauz in regards to his case waiting until 12/21/22. He stated he does not understand why this is not being done sooner. Patient can be reached at [phone] [facility] No Panel Informationon 12-11 Occlusive [...] to bowel gas. Visualized segments appear patent. [employer] Details A conroy scale, color Doppler imaging and spectral Doppler analysis ultrasound was performed. During the study longitudinal and transverse views were obtained. Pulsed wave doppler was performed. The exam was performed with the patient in the supine position. Overall the study quality was adequate. Study was technically difficult due to: bowel gas. CV CPACS Office Visiton 12-10-2022 Follow-up visit [id number] [place] 1960 M Date Provider Department Center 12/10/2022 [id number] [facility] None Family History Adopted: Yes Problem Relation Age of Onset No Known Problems Father Cancer Mother Comments: lung Family Status - Relation Status Age at Father Mother Level of Service:31870 [place] OFFICE/OUTPATIENT ESTABLISHED MOD [facility] 30-39 MIN Reason for Visit and Comments: Follow-up [230763] - [facility] 12/07 ED follow up, possible L[facility] Progress Noteon 12-10-2022 Progress Note [...] 12/09/[address] Davonte SANDERSON Vascular Surgery. 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 [facility] ED Nursing Noteon 12-07-2022 ED Nursing Note Surgery resident at bedside. Lorena Castillo RN 12/07/22 1423 [facility] ED Nursing Note Vascular at bedside. Lorena Castillo RN 12/07/22 1333 [facility] ED Nursing Note Pt ambulated to restroom with steady and even gait. Lorena Castillo RN 12/07/22 1319 [facility] ED Nursing Note Report from GARY Becerril. Lorena Castillo RN 12/07/22 1311 [facility] ED Nursing Note Bed: 06 Expected date: Expected time: Means of arrival: Comments: Triage Munira Mcgregor RN 12/07/22 0940 [facility] ED Provider Noteon ED Provider [...] [employer] Yolanda Patel DO 12/07/22 1809 [facility] ED Provider Note EMERGENCY DEPARTMENT [...] and instructed to follow-up. Patient was in [place] this last week when the pain and swelling increased. He reported to the ED in [place] at which time he had an EKG and another ultrasound of his leg showing that the clots were still there. Patient arrived back to [place] last night and states that he spoke [...] tablet Rickey (more content not included)... Normal [facility] 36on 12-03-2022 36 I called pt to offer OV with Dr. Arauz today for extensive LLE DVT extending to iliac vein. Pt is in [place] and is in severe pain and has extreme swelling where his leg is twice the size. I told him to go to ED down there in [place] and he declined. He states he will go to the [facility] ED in [place] when he returns on Saturday. Normal [facility] 36 S: Patient spoke wit h [facility] nurse regarding acute deep vein thrombosis of [...] nurse I am at the coast in [place] and will not return to [place] until Saturday. Again, highly encouraged patient to [...] vein thrombosis, pulmonary embolism) Protocols used: Leg Cunt-BWCSW-HB [facility] No Panel Informationon 11-14 Acute [...] on 10/15/2022. No change from previous exam. [employer] Details A conroy scale, color Doppler imaging, [...] 0.1 10*3/uL 0.0 - 0.2 10*3/uL [facility] Basophils/100 WBC (Bld) 1.0 % 0.0 - 2.0 % [facility] Eosinophils (Bld) [#/Vol] 0.4 10*3/uL 0. 0 - 0.5 10*3/uL [facility] Eosinophils/100 WBC (Bld) 4.9 % 1.0 - 6.0 % [facility] Erythrocyte distribution width (RBC) [Ratio] 13.0 % 11.5 - 14.5 % [facility] Hematocrit (Bld) [Volume fraction] 39.0 % Low 40.0 - 52.0 % [facility] Hemoglobin (Bld) [Mass/Vol] 13.5 g/dL 13.0 - 18.0 g/dL [facility] Interpretation and review of laboratory results Abnormal [facility] th Lymphocytes (Bld) [#/Vol] 2.0 10*3/uL 1. 0 - 4.3 10*3/uL [facility] Lymphocytes/100 WBC (Bld) 24.5 % 20 .0 - 40.0 % [facility] MCH (RBC) [Entitic mass] 31.0 pg 26. 0 - 34.0 pg [facility] MCHC (RBC) [Mass/Vol] 34.6 % 32.0 - 36.0 % [facility] MCV (RBC) [Entitic vol] 89.6 fL 80.0 - 98.[address] [facility] Monocytes (Bld) [#/Vol] 0.8 10*3/uL 0.0 - 0.8 10*3/uL [facility] Monocytes/100 WBC (Bld) 10.4 % High 2.0 - 10.0 % [facility] Neutrophils (Bld) [#/Vol] 4.7 10*3/uL 1. 8 - 7.0 10*3/uL [facility] Neutrophils/100 WBC (Bld) 59.2 % 40 .0 - 80.0 % [facility] Nucleated RBC/100 WBC (Bld) [Ratio] 0.0 % [facility] Platelet mean volume (Bld) [Entitic vol] 7.0 fL Low 7.4 - 12.[address] [facility] Platelets (Bld) [#/Vol] 277 10*3/uL 140 - 440 10*3/uL [facility] RBC (Bld) [#/Vol] 4.36 10*6/uL Low 4.40 - 5.9 0 10*6/uL [facility] WBC (Bld) [#/Vol] 8.0 10*3/uL 3.6 - 10.7 10*3/uL [facility] Comprehensive metabolic 1998 panelon 10-16-2022 Albumin [Mass/Vol] [...] (S/P/Bld) [Vol rate/Area] 82.6 mL/min/{1.73_m2} - PINF [facility] Comment on above: Calculation based on the Chronic Kidney Disease Epidemiology Collaboration (CKD-EPI) equation refit without adjustment for race Glucose [Mass/Vol] 95 mg/dL 70 - 100 mg/dL [facility] Interpretation and review of laboratory results Normal [facility] Potassium [Moles/Vol] 3.9 mmol/L 3.5 - 5.1 mmol/L [facility] Protein [Mass/Vol] 7.1 g/dL 6.3 - 8.2 g/dL [facility] Sodium [Moles/Vol] 135 mmol/L 135 - 145 mmol/L [facility] Urea nitrogen [Mass/Vol] 15 mg/dL 9 - 20 mg/dL [facility] CBC W Auto Differential pane l (Bld)Ordered [...] Interpretation and review of laboratory results Abnormal [facility] th Lymphocytes (Bld) [#/Vol] 1.3 10*3/uL 1. [...] fL Low 7.4 - 12.[address] [facility] [employer] Platelets (Bld) [#/Vol] 272 10*3/uL 140 - 440 10*3/uL [facility] RBC (Bld) [#/Vol] 4.32 10*6/uL Low 4.40 - 5.9 0 10*6/uL [facility] WBC (Bld) [#/Vol] 8.8 10*3/uL 3.6 - 10.7 10*3/uL [facility] CT Head WO contraston [address] examination of the brain. Report Dictated on Electronically Signed By: Noe Medina DO Electronically Signed Date/Time: 10/15/2022 2:57 PM EDT [facility] [employer] Patient Name: CORRIE QUEEN : 1960 [...] are unremarkable. The paranasal sinuses are clear. [facility] [employer] Noe Medina DO - 10/15/2022 Patient [...] EDT [facility] Radiology Study observation (narrative) [facility] alyssa CT Head WO contrastOrdered B [...] (S/P/Bld) [Vol rate/Area] 79.8 mL/min/{1.73_m2} - PINF [facility] Comment on above: Calculation based on the Chronic Kidney Disease Epidemiology Collaboration (CKD-EPI) equation refit without adjustment for race Glucose [Mass/Vol] 105 mg/dL High 70 - 100 mg/dL [facility] Interpretation and review of laboratory results Abnormal [facility] Potassium [Moles/Vol] 4.1 mmol/L 3.5 - 5.1 mmol/L [facility] Protein [Mass/Vol] 7.1 g/dL 6.3 - 8.2 g/dL [facility] Sodium [Moles/Vol] 137 mmol/L 135 - 145 mmol/L [facility] Urea nitrogen [Mass/Vol] 16 mg/dL 9 - 20 mg/dL [facility] Laboratory - Chemistry and C hemistry - challengeon 10-15-2022 Glucose [Mass/Vol] 98 mg/dL 70 - 100 mg/dL [facility] No Panel Informationon 10-15 Interpretation and review of laboratory results Normal [facility]formed by: [facility], [address] [place] [address] CLIA ID: [id number] [facility] Acute extensive DVT in the left lower [...] right common femoral vein is normally compressible. [employer] Details A conroy scale, color Doppler imaging [...] Interpretation and review of laboratory results Abnormal [facility] th Lymphocytes (Bld) [#/Vol] 2.1 10*3/uL 1. [...] [#/Vol] 8.2 10*3/uL 3.6 - 10.7 10*3/uL [facility] Comprehensive metabolic 1998 panelon 10-14-2022 Albumin [Mass/Vol] [...] (S/P/Bld) [Vol rate/Area] 72.4 mL/min/{1.73_m2} - PINF [facility] Comment on above: Calculation based on the Chronic Kidney Disease Epidemiology Collaboration (CKD-EPI) equation refit without adjustment for race Glucose [Mass/Vol] 90 mg/dL 70 - 100 mg/dL [facility] Interpretation and review of laboratory results Normal [facility] Potassium [Moles/Vol] 4.4 mmol/L 3.5 - 5.1 mmol/L [facility] Protein [Mass/Vol] 6.4 g/dL 6.3 - 8.2 g/dL [facility] Sodium [Moles/Vol] 138 mmol/L 135 - 145 mmol/L [facility] Urea nitrogen [Mass/Vol] 17 mg/dL 9 - 20 mg/dL [facility] Laboratory - Chemistry and C hemistry - challengeon 10-14-2022 Parathyrin.intact [Mass/Vol] 39.0 pg/mL 7.5 - 53.5 pg/mL [facility] Parathyrin.intact [Mass/Vol] on 10-14-2022 Interpretation and review of laboratory results Normal [facility] Basic metabolic 1998 panelon 10-12-2022 [...] [Vol rate/Area] 54.8 mL/min/{1.73_m2} Low - PINF [facility] Comment on above: Calculation based on the Chronic Kidney Disease Epidemiology Collaboration (CKD-EPI) equation refit without adjustment for race Glucose [Mass/Vol] 121 mg/dL High 70 - 100 mg/dL [facility] Interpretation and review of laboratory results Abnormal [facility] Potassium [Moles/Vol] 4.8 mmol/L 3.5 - 5.1 [...] 14.6 g/dL 13.0 - 18.0 g/dL [facility] Immature granulocytes (Bld) [#/Vol] 0.1 10*3/uL High NINF - 0.0 10*3/uL [facility] Immature granulocytes/100 WBC (Bld) 0.6 % High NINF - 0.0 % [facility] Interpretation and review of laboratory results Abnormal [facility] Lymphocytes (Bld) [#/Vol] 1.6 10*3/uL 1. 0 - 4.3 10*3/uL [facility] Lymphocytes/100 WBC (Bld) 16.4 % Low 20 [...] [#/Vol] 9.9 10*3/uL 3.6 - 10.7 10*3/uL [facility] Laboratory - Chemistry and C hemistry - [...] Electronically Signed Date/Time: 10/12/2022 3:20 PM EDT [employer] Patient Name: CORRIE QUEEN : 1960 [...] right common femoral vein is normally compressible. [facility] Chan Woodard M D - 10/12/2022 Patient [...] Interpretation and review of laboratory results Normal [facility] XR Tibia and Fibula - left 2 Viewson 10-12-2022 No acute osseous abnormality. Report Dictated on Electronically Signed By: Jesús Danielson MD Electronically Signed Date/Time: 10/12/2022 3:24 PM EDT [facility] Patient Name: CORRIE QUEEN : 1960 [...] body or soft tissue gas. Vascular calcifications. [facility] EMERGENC[facility]PART[facility] RADIOLOGY SYSTEM Jesús Danielson MD [...] EDT [facility] Radiology Study observation (narrative) [facility] alth XR Tibia and Fibula - left 2 ViewsOrdered By: Jesús Danielson on 10-12-[address] [facility] Work Phone: Urinalysis macro (dipstick) panel (U)on 09-13-2022 Bilirubin, [facility]A [facility] Trace [facility] Glucose, UA Negative [facility] Interpretation and review of laboratory results Abnormal [facility] Ketones, UA Negative [facility] Leukocytes, UA Moderate [facility] Nitrite, UA Negative [facility] pH, UA 6.0 [facility] Protein, UA Negative [facility] Spec Grav, UA 1.030 [facility] Urobilinogen, UA 0.2 [facility] Bacteria identified Cx Nom ( U)on 08-20-2022 Interpretation and review of laboratory results Abnormal [facility] Urine culture (clean catch)o n 08-20-2022 Bacteria identified Cx Nom (U) SEE NOTE Abnormal [facility] Comment on above: CULTURE, URINE, ROUTINE Micro Number: [id number] Test Status: Final Specimen Source: Urine, clean [...] 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 Urinalysis macro (dipstick) panel (U)Ordered By: Nelli Lama on 08-17-2022 Bilirubin, UA Negative [facility] h Blood, UA Moderate [facility] Comment on above: non-hemolyzed Clarity (U) Slightly Cloudy Abnormal Clear [facility] alth Color (U) Light Yellow Lt. Yellow [facility] Glucose, UA Negative [facility] Interpretation and review of laboratory results Abnormal [facility] Ketones, UA Trace [facility] Leukocytes, UA Moderate [facility] Nitrite, UA Negative [facility] pH, UA 6.0 [facility] Protein, UA Trace [facility] Spec Grav, UA 1.015 [facility] Urobilinogen, UA 0.2 [facility] alth [facility] Urinalysis macro (dipstick) panel (U)on 05-17-2022 Bilirubin, UA Negative [facility] Blood, UA Trace [facility] Glucose, UA Negative [facility] Interpretation and review of laboratory results Abnormal [facility] Ketones, UA Negative [facility] Leukocytes, UA Trace [facility] Nitrite, UA Negative [facility] pH, UA 6.5 [facility] Protein, UA Negative [facility] Spec Grav, UA 1.020 [facility] Urobilinogen, UA 0.2 [facility] alth [facility] Urinalysis macro (dipstick) panel (U)on 03-06-2022 Bilirubin, UA Negative [facility] Blood, UA Negative [facility] Glucose, UA Negative [facility] Ketones, UA Negative [facility] Leukocytes, UA Negative [facility] Nitrite, UA Negative [facility] pH, UA 5.0 [facility] Protein, UA Negative [facility] Spec Grav, UA 1.020 [facility] Urobilinogen, UA 0.2 [facility] al[facility] Basic Metabolic Panelon 10 Calcium [Mass/Vol] 9.5 mg/dL Normal 8.4-10.4 [facility] Comment on above: Performed By: #### H EMDF, TSH5, LIPD2, CMP3M #### [facility] [address] [place] [address] Anion gap [Moles/Vol] 7 mmol/L Normal 3-13 [facility] Comment on above: Performed By: #### H EMDF, TSH5, LIPD2, CMP3M #### [facility] [address] [place] [address] CO2 [Moles/Vol] 22 mmol/L Normal 22-30 [facility] Comment on above: Performed By: #### H EMDF, TSH5, LIPD2, CMP3M #### [facility] [address] [place] [address] Creatinine [Mass/Vol] 1.01 mg/dL Normal 0.52-1.25 [facility] Comment on above: Performed By: #### H EMDF, TSH5, LIPD2, CMP3M #### [facility] [address] [place] [address] GFR/1.73 sq M.predicted among blacks MDRD (S/P/Bld) [Vol rate/Area] mL/min/{1.73_m2} Normal >60 [facility] Comment on above: Performed By: #### H EMDF, TSH5, LIPD2, CMP3M #### [facility] [address] [place] [address] GFR/1.73 sq M.predicted among non-blacks MDRD (S/P/Bld) [Vol rate/Area] 80.3 mL/min/{1.73_m2} Normal >60 [facility] Comment on above: Result Comment: KDIG [...] #### H EMDF, TSH5, LIPD2, CMP3M #### [facility] [address] [place] [address] Glucose [Mass/Vol] 101 mg/dL High 70-100 [facility] Comment on above: Performed By: #### H EMDF, TSH5, LIPD2, CMP3M #### [facility] [address] [place] [address] Urea nitrogen [Mass/Vol] 21 mg/dL High 7-17 [facility] Comment on above: Performed By: #### H EMDF, TSH5, LIPD2, CMP3M #### [facility] [address] [place] [address] Chloride [Moles/Vol] 107 mmol/L Normal 98-107 [facility] Comment on above: Performed By: #### H EMDF, TSH5, LIPD2, CMP3M #### [facility] [address] [place] [address] Potassium [Moles/Vol] 3.9 mmol/L Normal 3.5-5.1 [facility] Comment on above: Performed By: #### H EMDF, TSH5, LIPD2, CMP3M #### [facility] [address] [place] [address] Sodium [Moles/Vol] 135 mmol/L Normal 135-145 [facility] Comment on above: Performed By: #### H EMDF, TSH5, LIPD2, CMP3M #### [facility] [address] [place] [address] Basic Metabolic Panel w/ Ref rolanda to MGon 12-06-2021 Anion gap [Moles/Vol] 7 mmol/L 3 - 13 mmol/L [facility] Work Phone: Calcium [Mass/Vol] 9.5 mg/dL 8.4 - 10. 4 mg/dL [facility] Work Phone: Chloride [Moles/Vol] 107 mmol/L 98 - 10 7 mmol/L [facility] Work Phone: CO2 [Moles/Vol] 22 mmol/L 22 - 30 mmol/L [facility] Work Phone: Creatinine [Mass/Vol] 1.01 mg/dL 0.52 - 1.25 mg/dL [facility] Work Phone: eGFR mL/min 60 - P INF mL/min [facility] Work Phone: EGFR IF NonAfrican U[place]ayan 80.3 mL/min 60 - PINF mL/min [facility] Work Phone: Comment on [...] 101 mg/dL High 70 - 100 mg/dL [employer] Work Phone: [phone] Interpretation and review of laboratory results Abnormal [facility] Work Phone: Potassium [Moles/Vol] 3.9 mmol/L 3.5 - 5.1 mmol/L [facility] Work Phone: Sodium [Moles/Vol] 135 mmol/L 135 - 145 mmol/L [facility] Work Phone: Urea nitrogen (BldV) [Mass/Vol] 21 mg/dL High 7 - 17 mg/dL [facility] Work Phone: Test Performed by [facility], [address] [place] [id number] [facility] Work Phone: CBC with Auto Differentialon 12-06-2021 Absolute Baso # 0.1 10*3/uL 0 - 0.2 10*3/uL [facility] Work Phone: Absolute Neut # 4.6 10*3/uL 1.8 - 7 10*3/uL [employer] Work Phone: Basophils/100 WBC (Bld) 0.9 % 0 - 2 % S [facility] Work Phone: Eosinophils (Bld) [#/Vol] 2.0 10*3/uL High 0 - 0.5 10*3/uL [employer] Work Phone: Eosinophils/100 WBC (Bld) 19.5 % High 1 - 6 % [facility] Work Phone: 1(200 Granulocytes/100 WBC (Bld) 44.0 % 40 - 80 % [facility] Work Phone: Hematocrit (Bld) [Volume fraction] 47.7 % 40 - 52 % [facility] Work Phone: Hemoglobin (Bld) [Mass/Vol] 16.3 g/dL 13 - 18 g/dL [facility] Work Phone: Interpretation and review of laboratory results Abnormal [facility] Work Phone: Lymphocytes (Bld) [#/Vol] 2.9 10*3/uL 1 - 4.3 10*3/uL [facility] Work Phone: Lymphocytes/100 WBC (Bld) 28.1 % 20 - 40 % [facility] Work Phone: MCH (RBC) [Entitic mass] 30.2 pg 26 - 34 pg [facility] Work Phone: MCHC (RBC) [Mass/Vol] 34.1 % 32 - 36 % [facility] Work Phone: MCV (RBC) [Entitic vol] 88.4 fL 80 - 98 fL S [facility] Work Phone: Monocytes (Bld) [#/Vol] 0.8 10*3/uL 0 - 0.8 10*3/uL [facility] Work Phone: Monocytes/100 WBC (Bld) 7.5 % 2 - 10 % S [facility] Work Phone: Platelet distribution width (Bld) [Ratio] 13.6 % 11.5 - 14.5 % [facility] Work Phone: Platelet mean volume (Bld) [Entitic vol] 7.0 fL Low 7.4 - 12.4 fL [facility] Work Phone: Comment on above: MPV is a calculated measurement using platelet volume ratio. Platelets (Bld) [#/Vol] 275 10*3/uL 140 - 440 10*3/uL [facility] Work Phone: RBC (Bld) [#/Vol] 5.39 10*6/uL 4.4 - 5.9 10*6/uL [facility] Work Phone: WBC (Bld) [#/Vol] 10.5 10*3/uL 3.6 - 10.7 10*3/uL [facility] Work Phone: Test Performed by [facility], [address] [place] [address] [facility] Work Phone: CULTURE BLOODon 12-06-2021 Microscopic examination of blood, culture CULTURE BLOOD --> Status: P No growth at 1 day. No growth at 2 days. No growth at 3 days. No growth at 4 days. No growth at 2 days. No growth at 3 days. No growth at 4 days. Normal [facility] Comment on above: Performed By: #### C UA2 #### [facility] [address] [place] [address] CULTURE BLOOD (Two)on 2021 Microscopic examination of blood, culture CULTURE BLOOD (Two) --> Status: P No growth at 1 day. No growth at 2 days. No growth at 3 days. No growth at 4 days. No growth at 2 days. No growth at 3 days. No growth at 4 days. Normal [facility] Comment on above: Performed By: #### C UA2 #### [facility] [address] [place] [address] Hemogram w/ Autodiffon 12-06 Abs Baso Cnt 0.1 10*3/uL Normal 0.0-0.2 [facility] Comment on above: Performed By: #### H EMDF, TSH5, LIPD2, CMP3M #### [facility] [address] [place] [address] Abs Neutrophile Cnt 4.6 10*3/uL Normal 1.8-7.0 [facility] Comment on above: Performed By: #### H EMDF, TSH5, LIPD2, CMP3M #### [facility] [address] [place] [address] Basophils/100 WBC (Bld) 0.9 % Normal 0.0-2.0 S [facility] Comment on above: Performed By: #### H EMDF, TSH5, LIPD2, CMP3M #### [facility] [address] [place] [address] Eosinophils (Bld) [#/Vol] 2.0 10*3/uL High 0.0-0.5 [facility] Comment on above: Performed By: #### H EMDF, TSH5, LIPD2, CMP3M #### [facility] [address] [place] [address] Eosinophils/100 WBC (Bld) 19.5 % High 1.0-6.0 [facility] Comment on above: Performed By: #### H EMDF, TSH5, LIPD2, CMP3M #### [facility] [address] [place] [address] Erythrocyte distribution width (RBC) [Ratio] 13.6 % Normal 11.5-14.5 [facility] Comment on above: Performed By: #### H EMDF, TSH5, LIPD2, CMP3M #### [facility] [address] [place] [address] Granulocytes/100 WBC (Bld) 44.0 % Normal 40.0-80.0 [facility] Comment on above: Performed By: #### H EMDF, TSH5, LIPD2, CMP3M #### [facility] [address] [place] [address] Hematocrit (Bld) [Volume fraction] 47.7 % Normal 40.0-52.0 [facility] Comment on above: Performed By: #### H EMDF, TSH5, LIPD2, CMP3M #### [facility] [address] [place] [address] Hemoglobin (Bld) [Mass/Vol] 16.3 g/dL Normal 13.0-18.0 [facility] Comment on above: Performed By: #### H EMDF, TSH5, LIPD2, CMP3M #### [facility] [address] [place] [address] Lymphocytes (Bld) [#/Vol] 2.9 10*3/uL Normal 1.0-4.3 [facility] Comment on above: Performed By: #### H EMDF, TSH5, LIPD2, CMP3M #### [facility] [address] [place] [address] Lymphocytes/100 WBC (Bld) 28.1 % Normal 20.0-40.0 [facility] Comment on above: Performed By: #### H EMDF, TSH5, LIPD2, CMP3M #### [facility] [address] [place] [address] MCH (RBC) [Entitic mass] 30.2 pg Normal 26.0-34.0 [facility] Comment on above: Performed By: #### H EMDF, TSH5, LIPD2, CMP3M #### [facility] [address] [place] [address] MCHC 34.1 % Normal 32.0-36.0 [facility] Comment on above: Performed By: #### H EMDF, TSH5, LIPD2, CMP3M #### [facility] [address] [place] [address] MCV (RBC) [Entitic vol] 88.4 fL Normal 80.0-98.0 S [facility] Comment on above: Performed By: #### H EMDF, TSH5, LIPD2, CMP3M #### [facility] [address] [place] [address] Monocytes (Bld) [#/Vol] 0.8 10*3/uL Normal 0.0-0.8 [facility] Comment on above: Performed By: #### H EMDF, TSH5, LIPD2, CMP3M #### [facility] [address] [place] [address] Monocytes/100 WBC (Bld) 7.5 % Normal 2.0-10.0 S [facility] Comment on above: Performed By: #### H EMDF, TSH5, LIPD2, CMP3M #### [facility] [address] [place] [address] Platelet mean volume (Bld) [Entitic vol] 7.0 fL Low 7.4-12.4 [facility] Comment on above: Result Comment: MPV is a calculated measurement using platelet volume ratio. Performed By: #### H EMDF, TSH5, LIPD2, CMP3M #### [facility] [address] [place] [address] Platelets (Bld) [#/Vol] 275 10*3/uL Normal 140-440 [facility] Comment on above: Performed By: #### H EMDF, TSH5, LIPD2, CMP3M #### [facility] [address] [place] [address] RBC (Bld) [#/Vol] 5.39 10*6/uL Normal 4.40-5.90 [facility] Comment on above: Performed By: #### H EMDF, TSH5, LIPD2, CMP3M #### [facility] [address] [place] [address] WBC (Bld) [#/Vol] 10.5 10*3/uL Normal 3.6-10.7 [facility] Comment on above: Performed By: #### H EMDF, TSH5, LIPD2, CMP3M #### [facility] [address] [place] [address] Basic Metabolic Panelon 10-1 Anion gap [Moles/Vol] 6 mmol/L Normal 3-13 [facility] Comment on above: Performed By: #### M DIFF, HEMDF, BMP3M #### [facility] [address] [place] [address] Calcium [Mass/Vol] 10.2 mg/dL Normal 8.4-10.4 [facility] Comment on above: Performed By: #### M DIFF, HEMDF, BMP3M #### [facility] [address] [place] [address] CO2 [Moles/Vol] 25 mmol/L Normal 22-30 [facility] Comment on above: Performed By: #### M DIFF, HEMDF, BMP3M #### [facility] [address] [place] [address] Glucose [Mass/Vol] 96 mg/dL Normal 70-100 [facility] Comment on above: Performed By: #### M DIFF, HEMDF, BMP3M #### [facility] [address] [place] [address] Urea nitrogen [Mass/Vol] 21 mg/dL High 7-17 [facility] Comment on above: Performed By: #### M DIFF, HEMDF, BMP3M #### [facility] [address] [place] [address] Creatinine [Mass/Vol] 1.26 mg/dL High 0.52-1.25 [facility] Comment on above: Performed By: #### M DIFF, HEMDF, BMP3M #### [facility] [address] [place] [address] GFR/1.73 sq M.predicted among blacks MDRD (S/P/Bld) [Vol rate/Area] 71.3 mL/min/{1.73_m2} Normal >60 [facility] Comment on above: Performed By: #### M DIFF, HEMDF, BMP3M #### [facility] [address] [place] [address] GFR/1.73 sq M.predicted among non-blacks MDRD (S/P/Bld) [Vol rate/Area] 61.5 mL/min/{1.73_m2} Normal >60 [facility] Comment on above: Result Comment: KDIG [...] By: #### M DIFF, HEMDF, BMP3M #### [facility] [address] [place] [address] Potassium [Moles/Vol] 4.3 mmol/L Normal 3.5-5.1 [facility] Comment on above: Performed By: #### M DIFF, HEMDF, BMP3M #### [facility] [address] [place] [address] Chloride [Moles/Vol] 105 mmol/L Normal 98-107 [facility] Comment on above: Performed By: #### M DIFF, HEMDF, BMP3M #### [facility] [address] [place] [address] Sodium [Moles/Vol] 135 mmol/L Normal 135-145 [facility] Comment on above: Performed By: #### M DIFF, HEMDF, BMP3M #### [facility] [address] [place] [address] Basic Metabolic Panel w/ Ref rolanda to MGon 12-05-2021 Anion gap [Moles/Vol] 6 mmol/L 3 - 13 mmol/L [facility] Work Phone: Calcium [Mass/Vol] 10.2 mg/dL 8.4 - 10. 4 mg/dL [facility] [facility] Work Phone: Chloride [Moles/Vol] 105 mmol/L 98 - 10 7 mmol/L [facility] Work Phone: CO2 [Moles/Vol] 25 mmol/L 22 - 30 mmol/L [facility] Work Phone: Creatinine [Mass/Vol] 1.26 mg/dL High 0.52 - 1.25 mg/dL [facility] Work Phone: EGFR IF NonAfrican [place]ayan 61.5 mL/min 60 - PINF mL/min [facility] Work Phone: Comment on above: KDIGO [...] rate/Area] 71.3 mL/min/{1.73_m2} 60 - PINF mL/min [facility] Work Phone: Glucose [Mass/Vol] 96 mg/dL 70 - 100 mg/dL [facility] Work Phone: Interpretation and review of laboratory results Abnormal [facility] Work Phone: Potassium [Moles/Vol] 4.3 mmol/L 3.5 - 5.1 mmol/L [facility] Work Phone: Sodium [Moles/Vol] 135 mmol/L 135 - 145 mmol/L [facility] Work Phone: Urea nitrogen (BldV) [Mass/Vol] 21 mg/dL High 7 - 17 mg/dL [facility] Work Phone: Test Performed by [facility], [address] [place] [id number] [place] [address] LAB [facility] Work Phone: CBC with Auto Differentialon 12-05-2021 Hematocrit (Bld) [Volume fraction] 43.8 % 40 - 52 % [facility] Work Phone: Hemoglobin (Bld) [Mass/Vol] 15.1 g/dL 13 - 18 g/dL [facility] Work Phone: Interpretation and review of laboratory results Abnormal [facility] Work Phone: MCH (RBC) [Entitic mass] 30.7 pg 26 - 34 pg [facility] Work Phone: MCHC (RBC) [Mass/Vol] 34.4 % 32 - 36 % [facility] Work Phone: MCV (RBC) [Entitic vol] 89.1 fL 80 - 98 fL [facility] Work Phone: [phone] Platelet distribution width (Bld) [Ratio] 13.7 % 11.5 - 14.5 % [employer] Work Phone: [phone] Platelet mean volume (Bld) [Entitic vol] 6.9 fL Low 7.4 - 12.4 fL [employer] Work Phone: [phone] Comment on above: MPV is a calculated measurement using platelet volume ratio. Platelets (Bld) [#/Vol] 265 10*3/uL 140 - 440 10*3/uL [employer] Work Phone: 1 RBC (Bld) [#/Vol] 4.91 10*6/uL 4.4 - 5.9 10*6/uL [employer] Work Phone: 1 WBC (Bld) [#/Vol] 10.4 10*3/uL 3.6 - 10.7 10*3/uL [employer] Work Phone: [phone] Performed by [facility], [address] [place], [place] [id number] [place] [address] [facility] Work Phone: [phone] Hemogram w/ Autodiffon 12-05 Erythrocyte distribution width (RBC) [Ratio] 13.7 % Normal 11.5-14.5 [facility] Comment on above: Performed By: #### M DIFF, HEMDF, BMP3M #### [facility] [address] [place] [address] Hematocrit (Bld) [Volume fraction] 43.8 % Normal 40.0-52.0 [facility] Comment on above: Performed By: #### M DIFF, HEMDF, BMP3M #### [facility] [address] [place] [address] Hemoglobin (Bld) [Mass/Vol] 15.1 g/dL Normal 13.0-18.0 [facility] Comment on above: Performed By: #### M DIFF, HEMDF, BMP3M #### [facility] [address] [place] [address] MCH (RBC) [Entitic mass] 30.7 pg Normal 26.0-34.0 [facility] Comment on above: Performed By: #### M DIFF, HEMDF, BMP3M #### [facility] [address] [place] [address] MCHC 34.4 % Normal 32.0-36.0 [facility] Comment on above: Performed By: #### M DIFF, HEMDF, BMP3M #### [facility] [address] [place] [address] MCV (RBC) [Entitic vol] 89.1 fL Normal 80.0-98.0 S [facility] Comment on above: Performed By: #### M DIFF, HEMDF, BMP3M #### [facility] [address] [place] [address] Platelet mean volume (Bld) [Entitic vol] 6.9 fL Low 7.4-12.4 [facility] Comment on above: Result Comment: MPV is a calculated measurement using platelet volume ratio. Performed By: #### M DIFF, HEMDF, BMP3M #### [facility] [address] [place] [address] Platelets (Bld) [#/Vol] 265 10*3/uL Normal 140-440 [facility] Comment on above: Performed By: #### M DIFF, HEMDF, BMP3M #### [facility] [address] [place] [address] RBC (Bld) [#/Vol] 4.91 10*6/uL Normal 4.40-5.90 [facility] Comment on above: Performed By: #### M DIFF, HEMDF, BMP3M #### [facility] [address] [place] [address] WBC (Bld) [#/Vol] 10.4 10*3/uL Normal 3.6-10.7 [facility] Comment on above: Performed By: #### M DIFF, HEMDF, BMP3M #### [facility] [address] [place] [address] Manual Diffon 12-05-2021 Abs Eosin Cnt 1.9 10*3/uL High 0.0-0.5 [facility] Comment on above: Performed By: #### C UA2 #### [facility] [address] [place] [address] Abs Lymph Cnt 2.4 10*3/uL Normal 1.1-4.5 [facility] Comment on above: Performed By: #### C UA2 #### [facility] [address] [place] [address] Abs Monocyte Cnt 0.6 10*3/uL Normal 0.2-1.1 [facility] Comment on above: Performed By: #### C UA2 #### [facility] [address] [place] [address] Abs Neutrophile Cnt 5.4 10*3/uL Normal 2.2-8.2 [facility] Comment on above: Performed By: #### C UA2 #### [facility] [address] [place] [address] Anisocytosis Slight Normal [facility] Comment on above: Performed By: #### C UA2 #### [facility] [address] [place] [address] Eosinophils 18 % High 1-6 [facility] Comment on above: Performed By: #### C UA2 #### [facility] [address] [place] [address] Lymphocytes 23 % Normal 20-40 [facility] Comment on above: Performed By: #### C UA2 #### [facility] [address] [place] [address] Metamyelocytes 1 % Abnormal <1 [facility] Comment on above: Performed By: #### C UA2 #### [facility] [address] [place] [address] Monocytes 6 % Normal 2-10 [facility] Comment on above: Performed By: #### C UA2 #### [facility] [address] [place] [address] Ovalocytes Slight Normal [facility] Comment on above: Performed By: #### C UA2 #### [facility] [address] [place] [address] RBC Morphology ABNORMAL Normal [facility] Comment on above: Performed By: #### C UA2 #### [facility] [address] [place] [address] Seg Neutrophils 52 % Normal 40-80 [facility] Comment on above: Performed By: #### C UA2 #### [facility] [address] [place] [address] T[employer] Drop Forms Slight Normal [facility] Comment on above: Performed By: #### C UA2 #### [facility] [address] [place] [address] Abs Baso Cnt 0.0 10*3/uL Normal 0.0-0.2 [facility] Comment on above: Performed By: #### C UA2 #### [facility] [address] [place] [address] Bands 0 % Normal 0-3 [facility] Comment on above: Performed By: #### C UA2 #### [facility] [address] [place] [address] Basophils 0 % Normal 0-2 [facility] Comment on above: Performed By: #### C UA2 #### [facility] [address] [place] [address] Cells counted 100 Normal [facility] Comment on above: Performed By: #### C UA2 #### [facility] [address] [place] [address] Manual Differentialon 2021 Absolute Baso # 0.0 10*3/uL 0 - 0.2 10*3/uL [employer] Work Phone: [phone] Absolute Eos # 1.9 10*3/uL High 0 - 0.5 10*3/uL [employer] Work Phone: [phone] Absolute Lymph # 2.4 10*3/uL 1.1 - 4.5 10*3/uL [facility] Work Phone: [phone] Absolute [place] # 0.6 10*3/uL 0.2 - 1.1 10*3/uL [employer] Work Phone: [phone] Absolute Neut # 5.4 10*3/uL 2.2 - 8.2 10*3/uL [facility] Work Phone: [phone] Anisocytosis Slight [employer] Work Phone: [phone] Bands 0 % 0 - 3 % [employer] Work Phone: [phone] Basophils/100 WBC (Bld) 0 % 0 - 2 % [facility] Work Phone: Eosinophils/100 WBC (Bld) 18 % High 1 - 6 % [facility] Work Phone: Interpretation and review of laboratory results Abnormal [facility] Work Phone: Lymphocytes/100 WBC (Bld) 23 % 20 - 40 % [facility] Work Phone: Metamyelocytes 1 % Abnormal NINF - 1 % [facility] Work Phone: Monocytes/100 WBC (Bld) 6 % 2 - 10 % [facility] Work Phone: Ovalocytes Slight [facility] Work Phone: RBC (Bld) [#/Vol] ABNORMAL [facility] Work Phone: Seg Neutrophils 52 % 40 - 80 % [employer] Work Phone: Tear Drop Cells Slight [facility] Work Phone: TOTAL CELLS COUNTED 100 [facility] Work Phone: Test Performed by [facility], [address] [place] [address] [facility] Work Phone: Basic Metabolic Panelon 10-1 0-2021 Anion gap [Moles/Vol] 6 mmol/L Normal 3-13 [facility] Comment on above: Performed By: #### B MP3M, HEMDF #### [facility] [address] [place] [address] Calcium [Mass/Vol] 10.4 mg/dL Normal 8.4-10.4 [facility] Comment on above: Performed By: #### B MP3M, HEMDF #### [facility] [address] [place] [address] CO2 [Moles/Vol] 27 mmol/L Normal 22-30 [facility] Comment on above: Performed By: #### B MP3M, HEMDF #### [facility] [address] [place] [address] Creatinine [Mass/Vol] 1.49 mg/dL High 0.52-1.25 [facility] Comment on above: Performed By: #### B MP3M, HEMDF #### [facility] [address] [place] [address] GFR/1.73 sq M.predicted among blacks MDRD (S/P/Bld) [Vol rate/Area] 58.2 mL/min/{1.73_m2} Abnormal >60 [facility] Comment on above: Performed By: #### B MP3M, HEMDF #### [facility] [address] [facility] [facility] [place] [address] GFR/1.73 sq M.predicted among non-blacks MDRD (S/P/Bld) [Vol rate/Area] 50.2 mL/min/{1.73_m2} Abnormal >60 [facility] Comment on above: Result Comment: KDIG [...] Performed By: #### Zayra MP3M, HEMDF #### [facility] [address] [place] [address] Glucose [Mass/Vol] 106 mg/dL High 70-100 [facility] Comment on above: Performed By: #### Zayra MP3M, HEMDF #### [facility] [address] [place] [address] Urea nitrogen [Mass/Vol] 22 mg/dL High 7-17 [facility] Comment on above: Performed By: #### B MP3M, HEMDF #### [facility] [address] [place] [address] Chloride [Moles/Vol] 105 mmol/L Normal 98-107 [facility] Comment on above: Performed By: #### B MP3M, HEMDF #### [facility] [address] [place] [address] Potassium [Moles/Vol] 4.9 mmol/L Normal 3.5-5.1 [facility] Comment on above: Performed By: #### B MP3M, HEMDF #### [facility] [address] [place] [address] Sodium [Moles/Vol] 138 mmol/L Normal 135-145 [facility] Comment on above: Performed By: #### B MP3M, HEMDF #### [facility] [address] [place] [address] Basic Metabolic Panel w/ Ref rolanda to MG 12-04-2021 Anion gap [Moles/Vol] 6 mmol/L 3 - 13 mmol/L [facility] Calcium [Mass/Vol] 10.4 mg/dL 8.4 - 10. 4 mg/dL [facility] Chloride [Moles/Vol] 105 mmol/L 98 - 10 7 mmol/L [facility] CO2 [Moles/Vol] 27 mmol/L 22 - 30 mmol/L [facility] Creatinine [Mass/Vol] 1.49 mg/dL High 0.52 - 1.25 mg/dL [facility] EGFR IF NonAfrican [place]ayan 50.2 mL/min Abnormal 60 - PINF mL/min [facility] Comment on above: KDIGO [...] 106 mg/dL High 70 - 100 mg/dL [facility] Interpretation and review of laboratory results Abnormal [facility] Potassium [Moles/Vol] 4.9 mmol/L 3.5 - 5.1 mmol/L [facility] Sodium [Moles/Vol] 138 mmol/L 135 - 145 mmol/L [facility] Urea nitrogen (BldV) [Mass/Vol] 22 mg/dL High 7 - 17 mg/dL [facility] Test Performed by [facility], [address] [place] [address] LAB [facility] CBC with Auto Differentialon [...] [Mass/Vol] 15.9 g/dL 13 - 18 g/dL [facility] Interpretation and review of [...] [#/Vol] 0.7 10*3/uL 0 - 0.8 10*3/uL [facility] Monocytes/100 WBC (Bld) 6.6 % 2 - 10 % [facility] Platelet distribution width (Bld) [Ratio] 13.5 % 11.5 - 14.5 % [facility] Platelet mean volume (Bld) [Entitic vol] 7.3 fL Low 7.4 - 12.4 fL [facility] Comment on above: MPV is a calculated measurement using platelet volume ratio. Platelets (Bld) [#/Vol] 268 10*3/uL 140 - 440 10*3/uL [facility] RBC (Bld) [#/Vol] 5.20 10*6/uL 4.4 - 5.9 10*6/uL [facility] WBC (Bld) [#/Vol] 10.1 10*3/uL 3.6 - 10.7 10*3/uL [facility] Test Performed by [facility], [address] [place], [place] [id number] [place] [address] LAB [facility] Complete Urinalysison 2021 Appearance (U) Clear Normal Clear [facility] Comment on above: Result Comment: . Performed By: #### H EMDF, TSH5, LIPD2, CMP3M #### [facility] [address] [place] [address] Bilirubin,Urine Negative Normal Negative [facility] Comment on above: Result Comment: . Performed By: #### H EMDF, TSH5, LIPD2, CMP3M #### [facility] [address] [place] [address] Color (U) Light-Yellow Normal Lt. Yellow [facility] Comment on above: Result Comment: . Performed By: #### H EMDF, TSH5, LIPD2, CMP3M #### [facility] [address] [place] [address] Glucose Ql (U) Normal Normal Normal (<70) [facility] Comment on above: Result Comment: . Performed By: #### H EMDF, TSH5, LIPD2, CMP3M #### [facility] [address] [place] [address] Ketone,Urine Negative Normal Negative [facility] Comment on above: Result Comment: . Performed By: #### H EMDF, TSH5, LIPD2, CMP3M #### [facility] [address] [place] [address] Leukocytes,Urine Negative Normal Negative [facility] Comment on above: Result Comment: . Performed By: #### H EMDF, TSH5, LIPD2, CMP3M #### [facility] [address] [place] [address] Nitrites,Urine Negative Normal Negative [facility] Comment on above: Result Comment: . Performed By: #### H EMDF, TSH5, LIPD2, CMP3M #### [facility] [address] [place] [address] Occult Blood,Urine Negative Normal Negative [facility] Comment on above: Result Comment: . Performed By: #### H EMDF, TSH5, LIPD2, CMP3M #### [facility] [address] [place] [address] pH,Urine 7.0 Normal 5.0-8.0 [facility] Comment on above: Result Comment: . Performed By: #### H EMDF, TSH5, LIPD2, CMP3M #### [facility] [address] [place] [address] Specific [place],Urine 1.013 Normal 1.005 - 1.030 [facility] Comment on above: Result Comment: . Performed By: #### H EMDF, TSH5, LIPD2, CMP3M #### [facility] [address] [place] [address] Total Protein,Urine Negative Normal Negative [facility] Comment on above: Result Comment: . Performed By: #### H EMDF, TSH5, LIPD2, CMP3M #### [facility] [address] [place] [address] Urobilinogen,Urine Normal Normal Normal (0-1) [facility] Comment on above: Result Comment: . Performed By: #### H EMDF, TSH5, LIPD2, CMP3M #### [facility] [address] [place] [address] Hemogram w/ Autodiffon 12-04 Abs Baso Cnt 0.1 10*3/uL Normal 0.0-0.2 [facility] Comment on above: Performed By: #### B MP3M, HEMDF #### [facility] [address] [place] [address] Abs Neutrophile Cnt 5.0 10*3/uL Normal 1.8-7.0 [facility] Comment on above: Performed By: #### B MP3M, HEMDF #### [facility] [address] [place] [address] Basophils/100 WBC (Bld) 0.6 % Normal 0.0-2.0 S [facility] Comment on above: Performed By: #### B MP3M, HEMDF #### [facility] [address] [place] [address] Eosinophils (Bld) [#/Vol] 1.5 10*3/uL High 0.0-0.5 [facility] Comment on above: Performed By: #### B MP3M, HEMDF #### [facility] [address] [place] [address] Eosinophils/100 WBC (Bld) 14.6 % High 1.0-6.0 [facility] Comment on above: Performed By: #### B MP3M, HEMDF #### [facility] [address] [place] [address] Erythrocyte distribution width (RBC) [Ratio] 13.5 % Normal 11.5-14.5 [facility] Comment on above: Performed By: #### B MP3M, HEMDF #### [facility] [address] [place] [address] Granulocytes/100 WBC (Bld) 49.8 % Normal 40.0-80.0 [facility] Comment on above: Performed By: #### B MP3M, HEMDF #### [facility] [address] [place] [address] Hematocrit (Bld) [Volume fraction] 46.9 % Normal 40.0-52.0 [facility] Comment on above: Performed By: #### B MP3M, HEMDF #### [facility] [address] [place] [address] Hemoglobin (Bld) [Mass/Vol] 15.9 g/dL Normal 13.0-18.0 [facility] Comment on above: Performed By: #### B MP3M, HEMDF #### [facility] [address] [place] [address] Lymphocytes (Bld) [#/Vol] 2.9 10*3/uL Normal 1.0-4.3 [facility] Comment on above: Performed By: #### B MP3M, HEMDF #### [facility] [address] [place] [address] Lymphocytes/100 WBC (Bld) 28.4 % Normal 20.0-40.0 [facility] Comment on above: Performed By: #### B MP3M, HEMDF #### [facility] [address] [place] [address] MCH (RBC) [Entitic mass] 30.7 pg Normal 26.0-34.0 [facility] Comment on above: Performed By: #### B MP3M, HEMDF #### [facility] [address] [place] [address] MCHC 34.0 % Normal 32.0-36.0 [facility] Comment on above: Performed By: #### B MP3M, HEMDF #### [facility] [address] [place] [address] MCV (RBC) [Entitic vol] 90.2 fL Normal 80.0-98.0 S [facility] Comment on above: Performed By: #### B MP3M, HEMDF #### [facility] [address] [place] [address] Monocytes (Bld) [#/Vol] 0.7 10*3/uL Normal 0.0-0.8 [facility] Comment on above: Performed By: #### B MP3M, HEMDF #### [facility] [address] [place] [address] Monocytes/100 WBC (Bld) 6.6 % Normal 2.0-10.0 S [facility] Comment on above: Performed By: #### B MP3M, HEMDF #### [facility] [address] [place] [address] Platelet mean volume (Bld) [Entitic vol] 7.3 fL Low 7.4-12.4 [facility] Comment on above: Result Comment: MPV is a calculated measurement using platelet volume ratio. Performed By: #### B MP3M, HEMDF #### [facility] [address] [place] [address] Platelets (Bld) [#/Vol] 268 10*3/uL Normal 140-440 [facility] Comment on above: Performed By: #### B MP3M, HEMDF #### [facility] [address] [place] [address] RBC (Bld) [#/Vol] 5.20 10*6/uL Normal 4.40-5.90 [facility] Comment on above: Performed By: #### B MP3M, HEMDF #### [facility] [address] [place] [address] WBC (Bld) [#/Vol] 10.1 10*3/uL Normal 3.6-10.7 [facility] Comment on above: Performed By: #### B MP3M, HEMDF #### [facility] [address] [place] [address] US RETROPERITONEAL LIMITEDon 12-04-2021 Patient Name: CORRIE QUEEN Ultrasound ACCESSION EXAM DATE/TIME PROCEDURE ORDERING PROVIDER [id number] 12/04/2021 10:28 EDT US Retroperitoneal KIARA BOB CPT code 29859 Reason For Exam (US Retroperitoneal Limited) R [...] Ultrasound ACCESSION EXAM DATE/TIME PROCEDURE ORDERING PROVIDER [id number] 12/04/2021 10:28 EDT US Retroperitoneal KIARA BOB CPT code 87354 Reason For Exam (US Retroperitoneal Limited) R [...] Ultrasound ACCESSION EXAM DATE/TIME PROCEDURE ORDERING PROVIDER [id number] 12/04/2021 10:28 EDT US Retroperitoneal KIARA BOB CPT code 03043 Reason For Exam (US Retroperitoneal Limited) R [...] Transcribed Date and Time: 12/04/2021 2:48 Normal [facility] UrinalysisOrdered By: Connor Kapoor on 12-04-2021 Appearance (U) Clear Clear NA [facility] Comment on above: . Bilirubin Urine Negative Negative mg/dL [facility] Comment on above: . Color (U) Light-Yellow Lt. Yellow NA [facility] Comment on above: . Glucose, Ur Normal Normal (<70) mg/dL [facility] Comment on above: . Ketones Ql (U) Negative Negative mg/dL [facility] Comment on above: . LEUKOCYTES, UA Negative Negative Irina/uL [facility] Comment on above: . Nitrite, Urine Negative Negative NA [facility] Comment on above: . Occult Blood,Urine Negative Negative mg/dL [facility] Comment on above: . pH (U) 7.0 [pH] [facility] Comment on above: . Specific [place], Urine 1.013 S [facility] Comment on above: . Total Protein, Urine Negative Negativ e mg/dL [facility] Comment on above: . Urobilinogen, Urine Normal Normal (0-1) mg/dL [facility] Comment on above: . [facility] Urinalysison 12-04-2021 Test Performed by [facility], [address] [place] [address] [facility] Basic Metabolic Panelon 10-0 Calcium [Mass/Vol] 9.7 mg/dL Normal 8.4-10.4 [facility] Comment on above: Performed By: #### H EMDF, TSH5, LIPD2, CMP3M #### [facility] [address] [place] [address] Glucose [Mass/Vol] 96 mg/dL Normal 70-100 [facility] Comment on above: Performed By: #### H EMDF, TSH5, LIPD2, CMP3M #### [facility] [address] [place] [address] Anion gap [Moles/Vol] 7 mmol/L Normal 3-13 [facility] Comment on above: Performed By: #### H EMDF, TSH5, LIPD2, CMP3M #### [facility] [address] [place] [address] CO2 [Moles/Vol] 21 mmol/L Low 22-30 [facility] Comment on above: Performed By: #### H EMDF, TSH5, LIPD2, CMP3M #### [facility] [address] [place] [address] Creatinine [Mass/Vol] 1.22 mg/dL Normal 0.52-1.25 [facility] Comment on above: Performed By: #### H EMDF, TSH5, LIPD2, CMP3M #### [facility] [address] [place] [address] GFR/1.73 sq M.predicted among blacks MDRD (S/P/Bld) [Vol rate/Area] 74.1 mL/min/{1.73_m2} Normal >60 [facility] Comment on above: Performed By: #### H EMDF, TSH5, LIPD2, CMP3M #### [facility] [address] [place] [address] GFR/1.73 sq M.predicted among non-blacks MDRD (S/P/Bld) [Vol rate/Area] 63.9 mL/min/{1.73_m2} Normal >60 [facility] Comment on above: Result Comment: KDIG [...] #### H EMDF, TSH5, LIPD2, CMP3M #### [facility] [address] [place] [address] Urea nitrogen [Mass/Vol] 24 mg/dL High 7-17 [facility] Comment on above: Performed By: #### H EMDF, TSH5, LIPD2, CMP3M #### [facility] [address] [place] [address] Chloride [Moles/Vol] 110 mmol/L High 98-107 [facility] Comment on above: Performed By: #### H EMDF, TSH5, LIPD2, CMP3M #### [facility] [address] [place] [address] Potassium [Moles/Vol] 4.2 mmol/L Normal 3.5-5.1 [facility] Comment on above: Performed By: #### H EMDF, TSH5, LIPD2, CMP3M #### [facility] [address] [place] [address] Sodium [Moles/Vol] 137 mmol/L Normal 135-145 [facility] Comment on above: Performed By: #### H EMDF, TSH5, LIPD2, CMP3M #### [facility] [address] [place] [address] Basic Metabolic Panel w/ Ref rolanda to MGon 12-03-2021 Anion gap [Moles/Vol] 7 mmol/L 3 - 13 mmol/L [facility] Calcium [Mass/Vol] 9.7 mg/dL 8.4 - 10. 4 mg/dL [facility] Chloride [Moles/Vol] 110 mmol/L High 98 - 10 7 mmol/L [facility] CO2 [Moles/Vol] 21 mmol/L Low 22 - 30 mmol/L [facility] Creatinine [Mass/Vol] 1.22 mg/dL 0.52 - 1.25 mg/dL [facility] EGFR IF NonAfrican [place] 63.9 mL/min 60 - PINF mL/min [facility] Comment on above: KDIGO guidelines pro [...] 24 mg/dL High 7 - 17 mg/dL [facility] Test Performed by [facility], [address] [place] [address] LAB [facility] CBC with Auto Differentialon 12-03-2021 [...] [Mass/Vol] 14.6 g/dL 13 - 18 g/dL [facility] Interpretation and review of [...] 88.7 fL 80 - 98 fL S [facility] Monocytes (Bld) [#/Vol] 0.5 10*3/uL 0 - 0.8 10*3/uL [facility] Monocytes/100 WBC (Bld) 6.2 % 2 - 10 % S [facility] Platelet distribution width (Bld) [Ratio] 13.7 % 11.5 - 14.5 % [facility] Platelet mean volume (Bld) [Entitic vol] 7.2 fL Low 7.4 - 12.4 fL [facility] Comment on above: MPV is a calculated measurement using platelet volume ratio. Platelets (Bld) [#/Vol] 228 10*3/uL 140 - 440 10*3/uL [facility] RBC (Bld) [#/Vol] 4.72 10*6/uL 4.4 - 5.9 10*6/uL [facility] WBC (Bld) [#/Vol] 7.8 10*3/uL 3.6 - 10.7 10*3/uL [facility] Test Performed by [facility], [address] [place], [place] [id number] [place] [address] LAB [facility] Hemogram w/ Autodiffon 12-03 Abs Baso Cnt 0.0 10*3/uL Normal 0.0-0.2 [facility] Comment on above: Performed By: #### H EMDF, TSH5, LIPD2, CMP3M #### [facility] [address] [place] [address] Abs Neutrophile Cnt 3.6 10*3/uL Normal 1.8-7.0 [facility] Comment on above: Performed By: #### H EMDF, TSH5, LIPD2, CMP3M #### [facility] [address] [place] [address] Basophils/100 WBC (Bld) 0.5 % Normal 0.0-2.0 [facility] Comment on above: Performed By: #### H EMDF, TSH5, LIPD2, CMP3M #### [facility] [address] [place] [address] Eosinophils (Bld) [#/Vol] 1.3 10*3/uL High 0.0-0.5 [facility] Comment on above: Performed By: #### H EMDF, TSH5, LIPD2, CMP3M #### [facility] [address] [place] [address] Eosinophils/100 WBC (Bld) 17.0 % High 1.0-6.0 [facility] Comment on above: Performed By: #### H EMDF, TSH5, LIPD2, CMP3M #### [facility] [address] [place] [address] Erythrocyte distribution width (RBC) [Ratio] 13.7 % Normal 11.5-14.5 [facility] Comment on above: Performed By: #### H EMDF, TSH5, LIPD2, CMP3M #### [facility] [address] [place] [address] Granulocytes/100 WBC (Bld) 46.8 % Normal 40.0-80.0 [facility] Comment on above: Performed By: #### H EMDF, TSH5, LIPD2, CMP3M #### [facility] [address] [place] [address] Hematocrit (Bld) [Volume fraction] 41.8 % Normal 40.0-52.0 [facility] Comment on above: Performed By: #### H EMDF, TSH5, LIPD2, CMP3M #### [facility] [address] [place] [address] Hemoglobin (Bld) [Mass/Vol] 14.6 g/dL Normal 13.0-18.0 [facility] Comment on above: Performed By: #### H EMDF, TSH5, LIPD2, CMP3M #### [facility] [address] [place] [address] Lymphocytes (Bld) [#/Vol] 2.3 10*3/uL Normal 1.0-4.3 [facility] Comment on above: Performed By: #### H EMDF, TSH5, LIPD2, CMP3M #### [facility] [address] [place] [address] Lymphocytes/100 WBC (Bld) 29.5 % Normal 20.0-40.0 [facility] Comment on above: Performed By: #### H EMDF, TSH5, LIPD2, CMP3M #### [facility] [address] [place] [address] MCH (RBC) [Entitic mass] 30.9 pg Normal 26.0-34.0 [facility] Comment on above: Performed By: #### H EMDF, TSH5, LIPD2, CMP3M #### [facility] [address] [place] [address] MCHC 34.8 % Normal 32.0-36.0 [facility] Comment on above: Performed By: #### H EMDF, TSH5, LIPD2, CMP3M #### [facility] [address] [place] [address] MCV (RBC) [Entitic vol] 88.7 fL Normal 80.0-98.0 S [facility] Comment on above: Performed By: #### H EMDF, TSH5, LIPD2, CMP3M #### [facility] [address] [place] [address] Monocytes (Bld) [#/Vol] 0.5 10*3/uL Normal 0.0-0.8 [facility] Comment on above: Performed By: #### H EMDF, TSH5, LIPD2, CMP3M #### [facility] [address] [place] [address] Monocytes/100 WBC (Bld) 6.2 % Normal 2.0-10.0 [facility] Comment on above: Performed By: #### H EMDF, TSH5, LIPD2, CMP3M #### [facility] [address] [place] [address] Platelet mean volume (Bld) [Entitic vol] 7.2 fL Low 7.4-12.4 [facility] Comment on above: Result Comment: MPV is a calculated measurement using platelet volume ratio. Performed By: #### H EMDF, TSH5, LIPD2, CMP3M #### [facility] [address] [place] [address] Platelets (Bld) [#/Vol] 228 10*3/uL Normal 140-440 [facility] Comment on above: Performed By: #### H EMDF, TSH5, LIPD2, CMP3M #### [facility] [employer] [facility] [address] [place] [address] RBC (Bld) [#/Vol] 4.72 10*6/uL Normal 4.40-5.90 [facility] Comment on above: Performed By: #### H EMDF, TSH5, LIPD2, CMP3M #### [facility] [employer] [facility] [address] [place] [address] WBC (Bld) [#/Vol] 7.8 10*3/uL Normal 3.6-10.7 [facility] Comment on above: Performed By: #### H EMDF, TSH5, LIPD2, CMP3M #### [facility] [employer] [facility] [address] [place] [address] CBC with Auto Differentialon 12-02-2021 Absolute Baso # 0.0 10*3/uL 0 - 0.2 10*3/uL [facility] Work Phone: Absolute Neut # 4.6 10*3/uL 1.8 - 7 10*3/uL [employer] Work Phone: [phone] Basophils/100 WBC (Bld) 0.4 % 0 - 2 % S [facility] Work Phone: 22 Eosinophils (Bld) [#/Vol] 1.4 10*3/uL High 0 - 0.5 10*3/uL [facility] Work Phone: ) [phone] Eosinophils/100 WBC (Bld) 16.2 % High 1 - 6 % [facility] Work Phone: 22 Granulocytes/100 WBC (Bld) 54.3 % 40 - 80 % [facility] Work Phone: Hematocrit (Bld) [Volume fraction] 40.8 % 40 - 52 % [facility] Work Phone: Hemoglobin (Bld) [Mass/Vol] 14.3 g/dL 13 - 18 g/dL [facility] Work Phone: Interpretation and review of laboratory results Abnormal [facility] Work Phone: 22 Lymphocytes (Bld) [#/Vol] 1.8 10*3/uL 1 - 4.3 10*3/uL [facility] Work Phone: 1 Lymphocytes/100 WBC (Bld) 21.5 % 20 - 40 % [facility] Work Phone: MCH (RBC) [Entitic mass] 31.2 pg 26 - 34 pg [facility] Work Phone: 1 MCHC (RBC) [Mass/Vol] 35.0 % 32 - 36 % [facility] Work Phone: MCV (RBC) [Entitic vol] 89.0 fL 80 - 98 fL [facility] Work Phone: Monocytes (Bld) [#/Vol] 0.6 10*3/uL 0 - 0.8 10*3/uL [facility] Work Phone: 1 Monocytes/100 WBC (Bld) 7.6 % 2 - 10 % S [facility] Work Phone: Platelet distribution width (Bld) [Ratio] 13.8 % 11.5 - 14.5 % [facility] Work Phone: Platelet mean volume (Bld) [Entitic vol] 7.1 fL Low 7.4 - 12.4 fL [facility] Work Phone: 1 Comment on above: MPV is a calculated measurement using platelet volume ratio. Platelets (Bld) [#/Vol] 203 10*3/uL 140 - 440 10*3/uL [facility] Work Phone: RBC (Bld) [#/Vol] 4.58 10*6/uL 4.4 - 5.9 10*6/uL [facility] Work Phone: WBC (Bld) [#/Vol] 8.6 10*3/uL 3.6 - 10.7 10*3/uL [facility] Work Phone: Test Performed by [employer] [facility], [address] [place], [place] [address] [facility] LAB [facility] Work Phone: [phone] CULTURE URINEon 12-02-2021 CULTURE URINE CULTURE URINE --> Status: F No growth (<1,000 CFU/ml). Normal [facility] Comment on above: Performed By: #### C UA2 #### [facility] [address] [place] [address] Comp Panel with Mg Reflexon 12-02-2021 Bilirubin [Mass/Vol] 0.4 mg/dL Normal 0.2-1.3 [facility] Comment on above: Performed By: #### H EMDF, TSH5, LIPD2, CMP3M #### [facility] [address] [place] [address] ALP [Catalytic activity/Vol] 46 U/L Normal 38-126 [facility] Comment on above: Performed By: #### H EMDF, TSH5, LIPD2, CMP3M #### [facility] [address] [place] [address] ALT [Catalytic activity/Vol] 16 U/L Normal 0-49 [facility] Comment on above: Result Comment: The ALT test is performed by an updated assay method. Please note that the reference intervals have been changed and are now sex specific. Performed By: #### H EMDF, TSH5, LIPD2, CMP3M #### [facility] [address] [place] [address] Anion gap [Moles/Vol] 9 mmol/L Normal 3-13 [facility] Comment on above: Performed By: #### H EMDF, TSH5, LIPD2, CMP3M #### [facility] [address] [place] [address] AST [Catalytic activity/Vol] 24 U/L Normal 15-46 [facility] Comment on above: Performed By: #### H EMDF, TSH5, LIPD2, CMP3M #### [facility] [address] [place] [address] Calcium [Mass/Vol] 9.7 mg/dL Normal 8.4-10.4 [facility] Comment on above: Performed By: #### H EMDF, TSH5, LIPD2, CMP3M #### [facility] [address] [place] [address] CO2 [Moles/Vol] 18 mmol/L Low 22-30 [facility] Comment on above: Performed By: #### H EMDF, TSH5, LIPD2, CMP3M #### [facility] [address] [place] [address] Creatinine [Mass/Vol] 1.49 mg/dL High 0.52-1.25 [facility] Comment on above: Performed By: #### H EMDF, TSH5, LIPD2, CMP3M #### [facility] [address] [place] [address] GFR/1.73 sq M.predicted among blacks MDRD (S/P/Bld) [Vol rate/Area] 58.2 mL/min/{1.73_m2} Abnormal >60 [facility] Comment on above: Performed By: #### H EMDF, TSH5, LIPD2, CMP3M #### [facility] [address] [place] [address] GFR/1.73 sq M.predicted among non-blacks MDRD (S/P/Bld) [Vol rate/Area] 50.2 mL/min/{1.73_m2} Abnormal >60 [facility] Comment on above: Result Comment: KDIG [...] #### H EMDF, TSH5, LIPD2, CMP3M #### [facility] [address] [place] [address] Glucose [Mass/Vol] 99 mg/dL Normal 70-100 [facility] Comment on above: Performed By: #### H EMDF, TSH5, LIPD2, CMP3M #### [facility] [address] [place] [address] Protein [Mass/Vol] 6.7 g/dL Normal 6.3-8.2 [facility] Comment on above: Performed By: #### H EMDF, TSH5, LIPD2, CMP3M #### [facility] [address] [place] [address] Urea nitrogen [Mass/Vol] 29 mg/dL High 7-17 [facility] Comment on above: Performed By: #### H EMDF, TSH5, LIPD2, CMP3M #### [facility] [address] [place] [address] Potassium [Moles/Vol] 3.7 mmol/L Normal 3.5-5.1 [facility] Comment on above: Performed By: #### H EMDF, TSH5, LIPD2, CMP3M #### [facility] [address] [place] [address] Albumin [Mass/Vol] 3.7 g/dL Normal 3.5-5.0 [facility] Comment on above: Performed By: #### H EMDF, TSH5, LIPD2, CMP3M #### [facility] [address] [place] [address] Chloride [Moles/Vol] 107 mmol/L Normal 98-107 [facility] Comment on above: Performed By: #### H EMDF, TSH5, LIPD2, CMP3M #### [facility] [address] [place] [address] Sodium [Moles/Vol] 134 mmol/L Low 135-145 [facility] Comment on above: Performed By: #### H EMDF, TSH5, LIPD2, CMP3M #### [facility] [address] [place] [address] Comprehensive Metabolic Pane l w/ Reflex to MGon 12-02-2021 Albumin [Mass/Vol] 3.7 g/dL 3.5 - 5 g/dL [facility] Work Phone: ALP (Bld) [Catalytic activity/Vol] 46 U/L 38 - 126 U/L [employer] Work Phone: ALT [Catalytic activity/Vol] 16 U/L 0 - 49 U/L [employer] Work Phone: [phone] Comment on above: The ALT test is perf ormed by an updated assay method. Please note that the reference intervals have been changed and are now sex specific. Anion gap [Moles/Vol] 9 mmol/L 3 - 13 mmol/L [employer] Work Phone: AST [Catalytic activity/Vol] 24 U/L 15 - 46 U/L [facility] Work Phone: Bilirubin [Mass/Vol] 0.4 mg/dL 0.2 - 1 .3 mg/dL [employer] Work Phone: [phone] Calcium [Mass/Vol] 9.7 mg/dL 8.4 - 10. 4 mg/dL [employer] Work Phone: [phone] Chloride [Moles/Vol] 107 mmol/L 98 - 10 7 mmol/L [facility] Work Phone: [phone] CO2 [Moles/Vol] 18 mmol/L Low 22 - 30 mmol/L [employer] Work Phone: [phone] Creatinine [Mass/Vol] 1.49 mg/dL High 0.52 - 1.25 mg/dL [employer] Work Phone: [phone] EGFR IF NonAfrican [place] 50.2 mL/min Abnormal 60 - PINF mL/min [employer] Work Phone: Comment on above: KDIGO guidelines [...] 58.2 mL/min/{1.73_m2} Abnormal 60 - PINF mL/min [facility] Work Phone: Glucose [Mass/Vol] 99 mg/dL 70 - 100 mg/dL [facility] Work Phone: Potassium [Moles/Vol] 3.7 mmol/L 3.5 - 5.1 mmol/L [facility] Work Phone: Protein [Mass/Vol] 6.7 g/dL 6.3 - 8.2 g/dL [facility] Work Phone: Sodium [Moles/Vol] 134 mmol/L Low 135 - 145 mmol/L [facility] Work Phone: Urea nitrogen (BldV) [Mass/Vol] 29 mg/dL High 7 - 17 mg/dL [facility] Work Phone: Culture, Urineon 12-02-2021 Bacteria identified Cx Nom (U) No growth (<1,000 CFU/ml). [facility] Test Performed by [facility] [employer] [facility], [address] [place] [id number] [facility] LAB [facility] Hemogram w/ Autodiffon 12-02 Abs Baso Cnt 0.0 10*3/uL Normal 0.0-0.2 [facility] Comment on above: Performed By: #### H EMDF, TSH5, LIPD2, CMP3M #### [facility] [employer] [facility] [address] [place] [address] Abs Neutrophile Cnt 4.6 10*3/uL Normal 1.8-7.0 [facility] Comment on above: Performed By: #### H EMDF, TSH5, LIPD2, CMP3M #### [facility] [employer] [facility] [address] [place] [address] Basophils/100 WBC (Bld) 0.4 % Normal 0.0-2.0 S [facility] Comment on above: Performed By: #### H EMDF, TSH5, LIPD2, CMP3M #### [facility] [address] [place] [address] Eosinophils (Bld) [#/Vol] 1.4 10*3/uL High 0.0-0.5 [facility] Comment on above: Performed By: #### H EMDF, TSH5, LIPD2, CMP3M #### [facility] [address] [place] [address] Eosinophils/100 WBC (Bld) 16.2 % High 1.0-6.0 [facility] Comment on above: Performed By: #### H EMDF, TSH5, LIPD2, CMP3M #### [facility] [address] [place] [address] Erythrocyte distribution width (RBC) [Ratio] 13.8 % Normal 11.5-14.5 [facility] Comment on above: Performed By: #### H EMDF, TSH5, LIPD2, CMP3M #### [facility] [address] [place] [address] Granulocytes/100 WBC (Bld) 54.3 % Normal 40.0-80.0 [facility] Comment on above: Performed By: #### H EMDF, TSH5, LIPD2, CMP3M #### [facility] [address] [place] [address] Hematocrit (Bld) [Volume fraction] 40.8 % Normal 40.0-52.0 [facility] Comment on above: Performed By: #### H EMDF, TSH5, LIPD2, CMP3M #### [facility] [address] [place] [address] Hemoglobin (Bld) [Mass/Vol] 14.3 g/dL Normal 13.0-18.0 [facility] Comment on above: Performed By: #### H EMDF, TSH5, LIPD2, CMP3M #### [facility] [address] [place] [address] Lymphocytes (Bld) [#/Vol] 1.8 10*3/uL Normal 1.0-4.3 [facility] Comment on above: Performed By: #### H EMDF, TSH5, LIPD2, CMP3M #### [facility] [address] [place] [address] Lymphocytes/100 WBC (Bld) 21.5 % Normal 20.0-40.0 [facility] Comment on above: Performed By: #### H EMDF, TSH5, LIPD2, CMP3M #### [facility] [address] [place] [address] MCH (RBC) [Entitic mass] 31.2 pg Normal 26.0-34.0 [facility] Comment on above: Performed By: #### H EMDF, TSH5, LIPD2, CMP3M #### [facility] [address] [place] [address] MCHC 35.0 % Normal 32.0-36.0 [facility] Comment on above: Performed By: #### H EMDF, TSH5, LIPD2, CMP3M #### [facility] [address] [place] [address] MCV (RBC) [Entitic vol] 89.0 fL Normal 80.0-98.0 S [facility] Comment on above: Performed By: #### H EMDF, TSH5, LIPD2, CMP3M #### [facility] [address] [place] [address] Monocytes (Bld) [#/Vol] 0.6 10*3/uL Normal 0.0-0.8 [facility] Comment on above: Performed By: #### H EMDF, TSH5, LIPD2, CMP3M #### [facility] [address] [place] [address] Monocytes/100 WBC (Bld) 7.6 % Normal 2.0-10.0 S [facility] Comment on above: Performed By: #### H EMDF, TSH5, LIPD2, CMP3M #### [facility] [address] [place] [address] Platelet mean volume (Bld) [Entitic vol] 7.1 fL Low 7.4-12.4 [facility] Comment on above: Result Comment: MPV is a calculated measurement using platelet volume ratio. Performed By: #### H EMDF, TSH5, LIPD2, CMP3M #### [facility] [address] [place] [address] Platelets (Bld) [#/Vol] 203 10*3/uL Normal 140-440 [facility] Comment on above: Performed By: #### H EMDF, TSH5, LIPD2, CMP3M #### [facility] [address] [place] [address] RBC (Bld) [#/Vol] 4.58 10*6/uL Normal 4.40-5.90 [facility] Comment on above: Performed By: #### H EMDF, TSH5, LIPD2, CMP3M #### [facility] [address] [place] [address] WBC (Bld) [#/Vol] 8.6 10*3/uL Normal 3.6-10.7 [facility] Comment on above: Performed By: #### H EMDF, TSH5, LIPD2, CMP3M #### [facility] [address] [place] [address] Lipid Panelon 12-02-2021 Low Density Lipoprotein 54 mg/dL Normal <100 S [facility] Comment on above: Performed By: #### H EMDF, TSH5, LIPD2, CMP3M #### [facility] [address] [place] [address] Triglyceride [Mass/Vol] 187 mg/dL Abnormal <150 S [facility] Comment on above: Performed By: #### H EMDF, TSH5, LIPD2, CMP3M #### [facility] [address] [place] [address] Chol/HDL 5 Normal [facility] Comment on above: Result Comment: Ref Range: < 3 Low Risk for CHD 3-6 Mod Risk for CHD > 6 High Risk for CHD Performed By: #### H EMDF, TSH5, LIPD2, CMP3M #### [facility] [address] [place] [address] Cholesterol in HDL [Mass/Vol] 21 mg/dL Low 40-60 [facility] Comment on above: Performed By: #### H EMDF, TSH5, LIPD2, CMP3M #### [facility] [address] [place] [address] Cholesterol [Mass/Vol] 112 mg/dL Normal < 200 [facility] Comment on above: Performed By: #### H EMDF, TSH5, LIPD2, CMP3M #### [facility] [address] [place] [address] Cholesterol [Mass/Vol] 112 mg/dL NINF - 200 mg/dL [employer] Work Phone: [phone] Cholesterol in HDL [Mass/Vol] 21 mg/dL Low 40 - 60 mg/dL [employer] Work Phone: [phone] Cholesterol in LDL [Mass/Vol] 54 mg/dL NINF - 100 mg/dL [employer] Work Phone: [phone] Cholesterol.total/Cholest betina in HDL [Mass ratio] 5 {ratio} [facility] Work Phone: [phone] Comment on above: Ref Range: < 3 Low Risk for CHD 3-6 Mod Risk for CHD > 6 High Risk for CHD Triglyceride [Mass/Vol] 187 mg/dL Abnormal NINF - 150 mg/dL [employer] Work Phone: [phone] Panel Informationon 12-02 Interpretation and review of laboratory results Abnormal [facility] Work Phone: [phone] Test Performed by [place] [address] [place], [place] [id number] [place] [address] LAB [employer] Work Phone: [phone] TSHon 12-02-2021 TSH Qn 2.706 u[IU]/mL 0.465 - 4.68 u[IU]/mL [facility] Work Phone: [phone] Test Performed by [facility], [facility] [address] [place], [place] [id number] [place] [address] LAB [employer] Work Phone: [phone] Thyroid Stim. Hormoneon Thyroid Stim. Hormone 2.706 u[IU]/mL Normal 0.465-4.68 0 [facility] Comment on above: Performed By: #### H EMDF, TSH5, LIPD2, CMP3M #### [facility] [address] [place] [address] Basic Metabolic Panelon 10-0 Calcium [Mass/Vol] 10.7 mg/dL High 8.4-10.4 [facility] Comment on above: Performed By: #### H EMDF, TSH5, LIPD2, CMP3M #### [facility] [facility] [address] [place] [address] Glucose [Mass/Vol] 122 mg/dL High 70-100 [facility] Comment on above: Performed By: #### H EMDF, TSH5, LIPD2, CMP3M #### [facility] [address] [place] [address] Anion gap [Moles/Vol] 9 mmol/L Normal 3-13 [facility] Comment on above: Performed By: #### H EMDF, TSH5, LIPD2, CMP3M #### [facility] [address] [place] [address] CO2 [Moles/Vol] 21 mmol/L Low 22-30 [facility] Comment on above: Performed By: #### H EMDF, TSH5, LIPD2, CMP3M #### [facility] [address] [place] [address] Creatinine [Mass/Vol] 1.34 mg/dL High 0.52-1.25 [facility] Comment on above: Performed By: #### H EMDF, TSH5, LIPD2, CMP3M #### [facility] [address] [place] [address] GFR/1.73 sq M.predicted among blacks MDRD (S/P/Bld) [Vol rate/Area] 66.2 mL/min/{1.73_m2} Normal >60 [facility] Comment on above: Performed By: #### H EMDF, TSH5, LIPD2, CMP3M #### [facility] [address] [place] [address] GFR/1.73 sq M.predicted among non-blacks MDRD (S/P/Bld) [Vol rate/Area] 57.1 mL/min/{1.73_m2} Abnormal >60 [facility] Comment on above: Result Comment: KDIG [...] #### H EMDF, TSH5, LIPD2, CMP3M #### [facility] [address] [place] [address] Urea nitrogen [Mass/Vol] 18 mg/dL High 7-17 [facility] Comment on above: Performed By: #### H EMDF, TSH5, LIPD2, CMP3M #### [facility] [address] [place] [address] Potassium [Moles/Vol] 4.0 mmol/L Normal 3.5-5.1 [facility] Comment on above: Performed By: #### H EMDF, TSH5, LIPD2, CMP3M #### [facility] [address] [place] [address] Sodium [Moles/Vol] 133 mmol/L Low 135-145 [facility] Comment on above: Performed By: #### H EMDF, TSH5, LIPD2, CMP3M #### [facility] [address] [place] [address] Chloride [Moles/Vol] 103 mmol/L Normal 98-107 [facility] Comment on above: Performed By: #### H EMDF, TSH5, LIPD2, CMP3M #### [facility] [address] [place] [address] Anion gap [Moles/Vol] 9 mmol/L 3 - 13 mmol/L [facility] Calcium [Mass/Vol] 10.7 mg/dL High 8.4 - 10. 4 mg/dL [facility] Chloride [Moles/Vol] 103 mmol/L 98 - 10 7 mmol/L [facility] CO2 [Moles/Vol] 21 mmol/L Low 22 - 30 mmol/L [facility] Creatinine [Mass/Vol] 1.34 mg/dL High 0.52 - 1.25 mg/dL [facility] EGFR IF NonAfrican [place] 57.1 mL/min Abnormal 60 - PINF mL/min [...] - 10.7 10*3/uL [facility] Test Performed by [facility] [employer] [facility], [address] [place], [place] [id number] [place] [address] LAB [facility] CR Chest Portableon 12-02-19 22 CR Chest Portable Patient Name: CORRIE QUEEN Diagnostic Radiology ACCESSION EXAM DATE/TIME PROCEDURE ORDERING PROVIDER [id number] 12/01/2021 12:48 EDT CR Chest Portable [id number] TEMI THOMPSON CPT code 65537 Reason For Exam (CR Chest Portable) sob [...] Transcribed Date and Time: 12/01/2021 2:32 Normal [facility] Complete Urinalysison 2021 Appearance (U) Clear Normal Clear [facility] Comment on above: Result Comment: . Performed By: #### C UA2 #### [facility] [address] [place] [address] Bilirubin,Urine Negative Normal Negative [facility] Comment on above: Result Comment: . Performed By: #### C UA2 #### [facility] [address] [place] [address] Color (U) Yellow Normal Lt. Yellow [facility] Comment on above: Result Comment: . Performed By: #### C UA2 #### [facility] [address] [place] [address] Glucose Ql (U) Normal Normal Normal (<70) [facility] Comment on above: Result Comment: . Performed By: #### C UA2 #### [facility] [address] [place] [address] Ketone,Urine Negative Normal Negative [facility] Comment on above: Result Comment: . Performed By: #### C UA2 #### [facility] [address] [place] [address] Leukocytes,Urine Negative Normal Negative [facility] Comment on above: Result Comment: . Performed By: #### C UA2 #### [facility] [address] [place] [address] Nitrites,Urine Negative Normal Negative [facility] Comment on above: Result Comment: . Performed By: #### C UA2 #### [facility] [address] [place] [address] Occult Blood,Urine Negative Normal Negative [facility] Comment on above: Result Comment: . Performed By: #### C UA2 #### [facility] [address] [place] [address] pH,Urine 6.0 Normal 5.0-8.0 [facility] Comment on above: Result Comment: . Performed By: #### C UA2 #### [facility] [address] [place] [address] Specific [place],Urine 1.015 Normal 1.005 - 1.030 [facility] Comment on above: Result Comment: . Performed By: #### C UA2 #### [facility] [address] [place] [address] Total Protein,Urine Negative Normal Negative [facility] Comment on above: Result Comment: . Performed By: #### C UA2 #### [facility] [address] [place] [address] Urobilinogen,Urine Normal Normal Normal (0-1) [facility] Comment on above: Result Comment: . Performed By: #### C UA2 #### [facility] [address] [place] [address] ECHO Complete 2D W Doppler W Coloron 12-01-2021 TRANSTHORACIC ECHOCARDIOGRAM PATIENT: Corrie Queen STUDY DATE: 12/01/2021 : 1960 AGE: 61 HT/WT: 182.9 cm (72 107.1 kg in) (235.5 lb) GENDER: M BP: 85 / 56 LOCATION: [facility] PATIENT Inpatient [facility] STATUS: *ORDERING PHYSICIAN: * Temi Lynne *READING PHYSICIAN: * Alyssa Ag MD *[employer]: * Mari Parry -------- INDICATIONS: Chest pain. [...] ml/m^2 Aortic valve (more content not included)... [facility] Alyssa Ag MD - 12/01/2021 TRANSTHORACIC ECHOCARDIOGRAM PATIENT: Corrie Queen STUDY DATE: 12/01/2021 : 1960 AGE: 61 HT/WT: 182.9 cm (72 107.1 kg in) (235.5 lb) GENDER: M BP: 85 / 56 LOCATION: [facility] PATIENT Inpatient [facility] STATUS: *ORDERING PHYSICIAN: * Temi Lynne *READING PHYSICIAN: * Alyssa Ag MD *[employer]: * Mari Parry -------- INDICATIONS: Chest pain. [...] 12/01/2021 17:40 P (more content not included)... [employer] Work Phone: ECHO Complete 2D W Doppler W ColorOrdered By: Alyssa Ag on 12-01-2021 [employer] Work Phone: ED Provider Noteon 2 ED [...] Comment: rarely Drug use: Yes Types: Marijuana ([place]) Social Determinants of Health Financial Resource Strain: [...] Constitutional: General: (more content not included)... Normal [facility] ED Provider Note Patient, Corrie Queen, [...] documentation. 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1960 Requested By: TEMI LYNNE Order Number: [id number] Reading MD: Barry Leon Measurements Intervals Fence Rate: 60 P: 55 OK: 190 QRS: -73 QRSD: 111 T: 30 QT: 427 QTc: 425 Interpretive Statements Sinus rhythm Inferior infarct, old Consider anterior infarct Compared to ECG from 05-23-12, no significant change Electronically Signed On 12-01-2021 14:06:11 EDT by Barry Leon [facility] Barry Leon MD - 12/01/2021 [facility] Test Date: 2021-12-01 Pat Name: CORRIE QUEEN Department: 2AED Room: 06 Gender: M 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 : 1960 Requested By: TEMI LYNNE Order Number: [id number] Reading MD: Barry Leon Measurements Intervals Fence Rate: 60 P: 55 OK: 190 QRS: -73 QRSD: 111 T: 30 QT: 427 QTc: 425 Interpretive Statements Sinus rhythm Inferior infarct, old Consider anterior infarct Compared to ECG from 05-23-12, no significant change Electronically Signed On 12-01-2021 14:06:11 EDT by Barry Leon [facility] Work Phone: EKG 12 LeadOrdered By: Barry Leon on 12-01-2021 [facility] Work Phone: Echo Complete w/wo Contrasto n 12-01-2021 Echo Complete w/wo Contrast Patient Name: CORRIE QUEEN Ultrasound ACCESSION EXAM DATE/TIME PROCEDURE ORDERING PROVIDER [id number] 12/01/2021 15:51 EDT Echo Complete w/wo [id number] -TEMI LYNNE Contrast Reason For Exam (Echo Complete w/wo Contrast) chest pain Report TRANSTHORACIC ECHOCARDIOGRAM PATIENT: Corrie Queen STUDY DATE: 12/01/2021 : 1960 AGE: 61 HT/WT: 182.9 cm (72 107.1 kg in) (235.5 lb) GENDER: M BP: 85 / 56 LOCATION: [facility] PATIENT Inpatient [facility] STATUS: *ORDERING PHYSICIAN: * Temi Lynne *READING PHYSICIAN: * Alyssa Ag MD *[employer]: * Mari Parry -------- INDICATIONS: Chest pain. [...] lateral 10 (more content not included)... Normal [facility] Hemogram w/ Autodiffon 12-01 Abs Baso Cnt 0.0 10*3/uL Normal 0.0-0.2 [facility] Comment on above: Performed By: #### H EMDF, TSH5, LIPD2, CMP3M #### [facility] [address] [place] [address] Abs Neutrophile Cnt 13.8 10*3/uL High 1.8-7.0 [facility] Comment on above: Performed By: #### H EMDF, TSH5, LIPD2, CMP3M #### [facility] [address] [place] [address] Basophils/100 WBC (Bld) 0.2 % Normal 0.0-2.0 S [facility] Comment on above: Performed By: #### H EMDF, TSH5, LIPD2, CMP3M #### [facility] [address] [place] [address] Eosinophils (Bld) [#/Vol] 0.9 10*3/uL High 0.0-0.5 [facility] Comment on above: Performed By: #### H EMDF, TSH5, LIPD2, CMP3M #### [facility] [address] [place] [address] Eosinophils/100 WBC (Bld) 5.7 % Normal 1.0-6.0 [facility] Comment on above: Performed By: #### H EMDF, TSH5, LIPD2, CMP3M #### [facility] [address] [place] [address] Erythrocyte distribution width (RBC) [Ratio] 13.6 % Normal 11.5-14.5 [facility] Comment on above: Performed By: #### H EMDF, TSH5, LIPD2, CMP3M #### [facility] [address] [place] [address] Granulocytes/100 WBC (Bld) 85.2 % High 40.0-80.0 [facility] Comment on above: Performed By: #### H EMDF, TSH5, LIPD2, CMP3M #### [facility] [address] [place] [address] Hematocrit (Bld) [Volume fraction] 45.8 % Normal 40.0-52.0 [facility] Comment on above: Performed By: #### H EMDF, TSH5, LIPD2, CMP3M #### [facility] [address] [place] [address] Hemoglobin (Bld) [Mass/Vol] 15.8 g/dL Normal 13.0-18.0 [facility] Comment on above: Performed By: #### H EMDF, TSH5, LIPD2, CMP3M #### [facility] [address] [place] [address] Lymphocytes (Bld) [#/Vol] 0.8 10*3/uL Low 1.0-4.3 [facility] Comment on above: Performed By: #### H EMDF, TSH5, LIPD2, CMP3M #### [facility] [address] [place] [address] Lymphocytes/100 WBC (Bld) 4.8 % Low 20.0-40.0 [facility] Comment on above: Performed By: #### H EMDF, TSH5, LIPD2, CMP3M #### [facility] [address] [place] [address] MCH (RBC) [Entitic mass] 30.5 pg Normal 26.0-34.0 [facility] Comment on above: Performed By: #### H EMDF, TSH5, LIPD2, CMP3M #### [facility] [address] [place] [address] MCHC 34.5 % Normal 32.0-36.0 [facility] Comment on above: Performed By: #### H EMDF, TSH5, LIPD2, CMP3M #### [facility] [address] [place] [address] MCV (RBC) [Entitic vol] 88.5 fL Normal 80.0-98.0 [facility] Comment on above: Performed By: #### H EMDF, TSH5, LIPD2, CMP3M #### [facility] [address] [place] [address] Monocytes (Bld) [#/Vol] 0.7 10*3/uL Normal 0.0-0.8 [facility] Comment on above: Performed By: #### H EMDF, TSH5, LIPD2, CMP3M #### [facility] [address] [place] [address] Monocytes/100 WBC (Bld) 4.1 % Normal 2.0-10.0 S [facility] Comment on above: Performed By: #### H EMDF, TSH5, LIPD2, CMP3M #### [facility] [address] [place] [address] Platelet mean volume (Bld) [Entitic vol] 7.7 fL Normal 7.4-12.4 [facility] Comment on above: Result Comment: MPV is a calculated measurement using platelet volume ratio. Performed By: #### H EMDF, TSH5, LIPD2, CMP3M #### [facility] [address] [place] [address] Platelets (Bld) [#/Vol] 255 10*3/uL Normal 140-440 [facility] Comment on above: Performed By: #### H EMDF, TSH5, LIPD2, CMP3M #### [facility] [address] [place] [address] RBC (Bld) [#/Vol] 5.18 10*6/uL Normal 4.40-5.90 [facility] Comment on above: Performed By: #### H EMDF, TSH5, LIPD2, CMP3M #### [facility] [address] [place] [address] WBC (Bld) [#/Vol] 16.3 10*3/uL High 3.6-10.7 [facility] Comment on above: Performed By: #### H EMDF, TSH5, LIPD2, CMP3M #### [facility] [address] [place] [address] Hepatic Functionon 2 ALT [Catalytic activity/Vol] 20 U/L Normal 0-49 [facility] Comment on above: Result Comment: The ALT test is performed by an updated assay method. Please note that the reference intervals have been changed and are now sex specific. Performed By: #### H EMDF, TSH5, LIPD2, CMP3M #### [facility] [address] [place] [address] ALP [Catalytic activity/Vol] 58 U/L Normal 38-126 [facility] Comment on above: Performed By: #### H EMDF, TSH5, LIPD2, CMP3M #### [facility] [address] [place] [address] AST [Catalytic activity/Vol] 27 U/L Normal 15-46 [facility] Comment on above: Performed By: #### H EMDF, TSH5, LIPD2, CMP3M #### [facility] [address] [place] [address] Bilirubin [Mass/Vol] 0.7 mg/dL Normal 0.2-1.3 [facility] Comment on above: Performed By: #### H EMDF, TSH5, LIPD2, CMP3M #### [facility] [address] [place] [address] Bilirubin.indirect [Mass/Vol] 0.0 mg/dL Normal 0.0-0.3 [facility] Comment on above: Performed By: #### H EMDF, TSH5, LIPD2, CMP3M #### [facility] [address] [place] [address] Protein [Mass/Vol] 7.8 g/dL Normal 6.3-8.2 [facility] Comment on above: Performed By: #### H EMDF, TSH5, LIPD2, CMP3M #### [facility] [address] [place] [address] Albumin [Mass/Vol] 4.4 g/dL Normal 3.5-5.0 [facility] Comment on above: Performed By: #### H EMDF, TSH5, LIPD2, CMP3M #### [facility] [address] [place] [address] Hepatic Function Panelon Albumin [Mass/Vol] 4.4 g/dL 3.5 - 5 g/dL [facility] ALP (Bld) [Catalytic activity/Vol] 58 U/L 38 - 126 U/L [facility] ALT [Catalytic activity/Vol] 20 U/L 0 - 49 U/L [facility] Comment on above: The ALT test is perf ormed by an updated assay method. Please note that the reference intervals have been changed and are now sex specific. AST [Catalytic activity/Vol] 27 U/L 15 - 46 U/L [facility] Bilirubin [Mass/Vol] 0.7 mg/dL 0.2 - 1 .3 mg/dL [facility] Bilirubin.indirect [Mass/Vol] 0.0 mg/dL 0 - 0.3 mg/dL [facility] Protein [Mass/Vol] 7.8 g/dL 6.3 - 8.2 g/dL [facility] Lactate, Sepsison 12-01-2021 Lactate [Moles/Vol] 1.1 mmol/L 0.7 - 2 mmol/L [facility] Test Performed by [facility], [facility] [address] LAB [facility] Lactic Acid, Sepsison 2021 Lactate [Moles/Vol] 1.1 mmol/L Normal 0.7-2.0 [facility] Comment on above: Performed By: #### H EMDF, TSH5, LIPD2, CMP3M #### [facility] [address] [place] [address] Lipaseon 12-01-2021 Lipase [Catalytic activity/Vol] 24 U/L Normal 23-300 [facility] Comment on above: Performed By: #### H EMDF, TSH5, LIPD2, CMP3M #### [facility] [address] [place] [address] Lipase [Catalytic activity/Vol] 24 U/L 23 - 300 U/L [facility] No Panel Informationon 12-01 Test Performed by [facility], [address] [place], [place] [id number] [place] [address] LAB [facility] Troponinon 12-01-2021 Troponin I.cardiac [Mass/Vol] ng/mL 0 - 0.034 ng/mL [facility] Work Phone: Comment on above: . Test Performed by [facility], [address] [place], [place] [address] [facility] Work Phone: Troponin Ion 12-01-2021 Troponin I.cardiac [Mass/Vol] ng/mL Normal 0.000-0.034 [facility] Comment on above: Result Comment: . Performed By: #### H EMDF, TSH5, LIPD2, CMP3M #### [facility] [address] [place] [address] Urinalysison 12-01-2021 Appearance (U) Clear Clear NA [...] [pH] [facility] Comment on above: . Specific [place], Urine 1.015 S [facility] Comment on above: . Total Protein, Urine Negative Negativ e mg/dL [facility] Comment on above: . Urobilinogen, Urine Normal Normal (0-1) mg/dL [facility] Comment on above: . Test Performed by [facility], [address] [place], [place] [address] [facility] XR CHEST PORTABLEon 12-02-19 Patient Name: CORRIE QUEEN Diagnostic Radiology ACCESSION EXAM DATE/TIME PROCEDURE ORDERING PROVIDER [id number] 12/01/2021 12:48 EDT CR Chest Portable [id number] -TEMI LYNNE CPT code 94525 Reason For Exam (CR Chest Portable) sob [...] Transcribed Date and Time: 12/01/2021 2:32 [facility] Hema Miller MD - 12/01/2021 Patient Name: CORRIE QUEEN Diagnostic Radiology ACCESSION EXAM DATE/TIME PROCEDURE ORDERING PROVIDER [id number] 12/01/2021 12:48 EDT CR Chest Portable [id number] -TEMI LYNNE CPT code 87257 Reason For Exam (CR Chest Portable) sob [...] AHMAD Transcribed Date and Time: 12/01/2021 2:32 [facility] Work Phone: Radiology Study observation (narrative) [facility] Work Phone: XR CHEST PORTABLEOrdered By: Hema Miller on 12-01-2021 [facility] Work Phone: CULTURE URINEon 11-29-2021 CULTURE URINE CULTURE URINE --> Status: F No growth (<1,000 CFU/ml). Normal [facility] Comment on above: Performed By: #### C UA2 #### [facility] [address] [place] [address] Basic Metabolic Panelon 10-0 -2021 Anion gap [Moles/Vol] 10 mmol/L Normal 3-13 [facility] Comment on above: Performed By: #### H EMDF, TSH5, LIPD2, CMP3M #### [facility] [address] [place] [address] Calcium [Mass/Vol] 11.3 mg/dL High 8.4-10.4 [facility] Comment on above: Performed By: #### H EMDF, TSH5, LIPD2, CMP3M #### [facility] [address] [place] [address] CO2 [Moles/Vol] 21 mmol/L Low 22-30 [facility] Comment on above: Performed By: #### H EMDF, TSH5, LIPD2, CMP3M #### [facility] [address] [place] [address] Glucose [Mass/Vol] 135 mg/dL High 70-100 [facility] Comment on above: Performed By: #### H EMDF, TSH5, LIPD2, CMP3M #### [facility] [address] [place] [address] Urea nitrogen [Mass/Vol] 20 mg/dL High 7-17 [facility] Comment on above: Performed By: #### H EMDF, TSH5, LIPD2, CMP3M #### [facility] [address] [place] [address] Creatinine [Mass/Vol] 1.33 mg/dL High 0.52-1.25 [facility] Comment on above: Performed By: #### H EMDF, TSH5, LIPD2, CMP3M #### [facility] [address] [place] [address] GFR/1.73 sq M.predicted among blacks MDRD (S/P/Bld) [Vol rate/Area] 66.8 mL/min/{1.73_m2} Normal >60 [facility] Comment on above: Performed By: #### H EMDF, TSH5, LIPD2, CMP3M #### [facility] [address] [place] [address] GFR/1.73 sq M.predicted among non-blacks MDRD (S/P/Bld) [Vol rate/Area] 57.6 mL/min/{1.73_m2} Abnormal >60 [facility] Comment on above: Result Comment: KDIG [...] #### H EMDF, TSH5, LIPD2, CMP3M #### [facility] [address] [place] [address] Chloride [Moles/Vol] 105 mmol/L Normal 98-107 [facility] Comment on above: Performed By: #### H EMDF, TSH5, LIPD2, CMP3M #### [facility] [address] [place] [address] Potassium [Moles/Vol] 3.9 mmol/L Normal 3.5-5.1 [facility] Comment on above: Performed By: #### H EMDF, TSH5, LIPD2, CMP3M #### [facility] [address] [place] [address] Sodium [Moles/Vol] 136 mmol/L Normal 135-145 [facility] Comment on above: Performed By: #### H EMDF, TSH5, LIPD2, CMP3M #### [facility] [address] [place] [address] CT Abdomen/Pelvis w/o Contra vik 11-28-2021 CT Abdomen/Pelvis w/o Contrast Patient Name: CORRIE QUEEN Computed Tomography ACCESSION EXAM DATE/TIME PROCEDURE ORDERING PROVIDER [id number] 11/27/2021 23:[address] Abdomen/Pelvis (No MD MIKE, TC PO, No IV) CPT code 06699 Reason For Exam (CT Abdomen/Pelvis (No PO, [...] Transcribed Date and Time: 11/27/2021 11:11 Normal [place] Complete Urinalysison 2021 Bacteria LM.HPF (Urine sed) [#/Area] Negative Normal Negative [facility] Comment on above: Result Comment: . Performed By: #### C UA2 #### [facility] [address] [place] [address] Mucous Threads Few Normal Negative [facility] Comment on above: Result Comment: . Performed By: #### C UA2 #### [facility] [address] [place] [address] RBC, Urine 0 - 2 Normal 0-2 [facility] Comment on above: Result Comment: . Performed By: #### C UA2 #### [facility] [address] [place] [address] Squamous Epithelial 0 - 2 Normal 3-5 [facility] Comment on above: Result Comment: . Performed By: #### C UA2 #### [facility] [address] [place] [address] VOLUME, URINE 12 ml Normal [facility] Comment on above: Result Comment: . Performed By: #### C UA2 #### [facility] [address] [place] [address] WBC, Urine 3 - 5 Normal 0-5 [facility] Comment on above: Result Comment: . Performed By: #### C UA2 #### [facility] [address] [place] [address] Appearance (U) Clear Normal Clear [facility] Comment on above: Result Comment: . Performed By: #### C UA2 #### [facility] [address] [place] [address] Bilirubin,Urine Negative Normal Negative [facility] Comment on above: Result Comment: . Performed By: #### C UA2 #### [facility] [address] [place] [address] Color (U) LIGHT YELLOW Normal Lt. Yellow [facility] Comment on above: Result Comment: . Performed By: #### C UA2 #### [facility] [address] [place] [address] Glucose Ql (U) Normal Normal Normal (<70) [facility] Comment on above: Result Comment: . Performed By: #### C UA2 #### [facility] [address] [place] [address] Ketone,Urine Negative Normal Negative [facility] Comment on above: Result Comment: . Performed By: #### C UA2 #### [facility] [address] [place] [address] Leukocytes,Urine 25 Irina/uL Abnormal Negative [facility] Comment on above: Result Comment: . Performed By: #### C UA2 #### [facility] [address] [place] [address] Nitrites,Urine Negative Normal Negative [facility] Comment on above: Result Comment: . Performed By: #### C UA2 #### [facility] [address] [place] [address] Occult Blood,Urine Negative Normal Negative [facility] Comment on above: Result Comment: . Performed By: #### C UA2 #### [facility] [address] [place] [address] pH,Urine 5.0 Normal 5.0-8.0 [facility] Comment on above: Result Comment: . Performed By: #### C UA2 #### [facility] [address] [place] [address] Specific [place],Urine 1.011 Normal 1.005 - 1.030 [facility] Comment on above: Result Comment: . Performed By: #### C UA2 #### [facility] [address] [place] [address] Total Protein,Urine Negative Normal Negative [facility] Comment on above: Result Comment: . Performed By: #### C UA2 #### [facility] [address] [place] [address] Urobilinogen,Urine Normal Normal Normal (0-1) [facility] Comment on above: Result Comment: . Performed By: #### C UA2 #### [facility] [address] [place] [address] Hemogram w/ Autodiffon 11-28 Abs Baso Cnt 0.1 10*3/uL Normal 0.0-0.2 [facility] Comment on above: Performed By: #### H EMDF, TSH5, LIPD2, CMP3M #### [facility] [address] [place] [address] Abs Neutrophile Cnt 11.8 10*3/uL High 1.8-7.0 [facility] Comment on above: Performed By: #### H EMDF, TSH5, LIPD2, CMP3M #### [facility] [address] [place] [address] Basophils/100 WBC (Bld) 0.4 % Normal 0.0-2.0 [facility] Comment on above: Performed By: #### H EMDF, TSH5, LIPD2, CMP3M #### [facility] [address] [place] [address] Eosinophils (Bld) [#/Vol] 0.3 10*3/uL Normal 0.0-0.5 [facility] Comment on above: Performed By: #### H EMDF, TSH5, LIPD2, CMP3M #### [facility] [address] [place] [address] Eosinophils/100 WBC (Bld) 2.5 % Normal 1.0-6.0 [facility] Comment on above: Performed By: #### H EMDF, TSH5, LIPD2, CMP3M #### [facility] [address] [place] [address] Erythrocyte distribution width (RBC) [Ratio] 13.2 % Normal 11.5-14.5 [facility] Comment on above: Performed By: #### H EMDF, TSH5, LIPD2, CMP3M #### [facility] [address] [place] [address] Granulocytes/100 WBC (Bld) 86.0 % High 40.0-80.0 [facility] Comment on above: Performed By: #### H EMDF, TSH5, LIPD2, CMP3M #### [facility] [address] [place] [address] Hematocrit (Bld) [Volume fraction] 47.1 % Normal 40.0-52.0 [facility] Comment on above: Performed By: #### H EMDF, TSH5, LIPD2, CMP3M #### [facility] [address] [place] [address] Hemoglobin (Bld) [Mass/Vol] 17.0 g/dL Normal 13.0-18.0 [facility] Comment on above: Performed By: #### H EMDF, TSH5, LIPD2, CMP3M #### [facility] [address] [place] [address] Lymphocytes (Bld) [#/Vol] 0.8 10*3/uL Low 1.0-4.3 [facility] Comment on above: Performed By: #### H EMDF, TSH5, LIPD2, CMP3M #### [facility] [address] [place] [address] Lymphocytes/100 WBC (Bld) 5.5 % Low 20.0-40.0 [facility] Comment on above: Performed By: #### H EMDF, TSH5, LIPD2, CMP3M #### [facility] [address] [place] [address] MCH (RBC) [Entitic mass] 31.6 pg Normal 26.0-34.0 [facility] Comment on above: Performed By: #### H EMDF, TSH5, LIPD2, CMP3M #### [facility] [address] [place] [address] MCHC 36.1 % High 32.0-36.0 [facility] Comment on above: Performed By: #### H EMDF, TSH5, LIPD2, CMP3M #### [facility] [address] [place] [address] MCV (RBC) [Entitic vol] 87.5 fL Normal 80.0-98.0 S [facility] Comment on above: Performed By: #### H EMDF, TSH5, LIPD2, CMP3M #### [facility] [address] [place] [address] Monocytes (Bld) [#/Vol] 0.7 10*3/uL Normal 0.0-0.8 [facility] Comment on above: Performed By: #### H EMDF, TSH5, LIPD2, CMP3M #### [facility] [address] [place] [address] Monocytes/100 WBC (Bld) 5.2 % Normal 2.0-10.0 S [facility] Comment on above: Performed By: #### H EMDF, TSH5, LIPD2, CMP3M #### [facility] [address] [place] [address] Platelet mean volume (Bld) [Entitic vol] 9.0 fL Normal 7.4-12.4 [facility] Comment on above: Result Comment: MPV is a calculated measurement using platelet volume ratio. Performed By: #### H EMDF, TSH5, LIPD2, CMP3M #### [facility] [address] [place] [address] Platelets (Bld) [#/Vol] 240 10*3/uL Normal 140-440 [facility] Comment on above: Performed By: #### H EMDF, TSH5, LIPD2, CMP3M #### [place] [address] [place] [address] RBC (Bld) [#/Vol] 5.38 10*6/uL Normal 4.40-5.90 [facility] Comment on above: Performed By: #### H EMDF, TSH5, LIPD2, CMP3M #### [facility] [address] [place] [address] WBC (Bld) [#/Vol] 13.7 10*3/uL High 3.6-10.7 [facility] Comment on above: Performed By: #### H EMDF, TSH5, LIPD2, CMP3M #### [facility] [address] [place] [address] Basic Metabolic Panelon 10-0 -2021 Anion gap [Moles/Vol] 10 mmol/L 3 - 13 mmol/L [facility] Work Phone: Calcium [Mass/Vol] 11.3 mg/dL High 8.4 - 10. 4 mg/dL [facility] Work Phone: Chloride [Moles/Vol] 105 mmol/L 98 - 10 7 mmol/L [facility] Work Phone: CO2 [Moles/Vol] 21 mmol/L Low 22 - 30 mmol/L [employer] Work Phone: [phone] Creatinine [Mass/Vol] 1.33 mg/dL High 0.52 - 1.25 mg/dL [employer] Work Phone: [phone] EGFR IF NonAfrican [place]ayan 57.6 mL/min Abnormal 60 - PINF mL/min [employer] Work Phone: [phone] Comment on above: KDIGO guidelines pro vide [...] rate/Area] 66.8 mL/min/{1.73_m2} 60 - PINF mL/min [employer] Work Phone: [phone] Glucose [Mass/Vol] 135 mg/dL High 70 - 100 mg/dL [employer] Work Phone: [phone] Potassium [Moles/Vol] 3.9 mmol/L 3.5 - 5.1 mmol/L [employer] Work Phone: [phone] Sodium [Moles/Vol] 136 mmol/L 135 - 145 mmol/L [employer] Work Phone: [phone] Urea nitrogen (BldV) [Mass/Vol] 20 mg/dL High 7 - 17 mg/dL [employer] Work Phone: [phone] CBC with Auto Differentialon 11-27-2021 Absolute Baso # 0.1 10*3/uL 0 - 0.2 10*3/uL [employer] Work Phone: Absolute Neut # 11.8 10*3/uL High 1.8 - 7 10*3/uL [facility] Work Phone: [phone] Basophils/100 WBC (Bld) 0.4 % 0 - 2 % [facility] Work Phone: Eosinophils (Bld) [#/Vol] 0.3 10*3/uL 0 - 0.5 10*3/uL [facility] Work Phone: Eosinophils/100 WBC (Bld) 2.5 % 1 - 6 % [facility] Work Phone: Granulocytes/100 WBC (Bld) 86.0 % High 40 - 80 % [facility] Work Phone: Hematocrit (Bld) [Volume fraction] 47.1 % 40 - 52 % [facility] Work Phone: Hemoglobin (Bld) [Mass/Vol] 17.0 g/dL 13 - 18 g/dL [facility] Work Phone: Interpretation and review of laboratory results Abnormal [facility] Work Phone: Lymphocytes (Bld) [#/Vol] 0.8 10*3/uL Low 1 - 4.3 10*3/uL [facility] Work Phone: Lymphocytes/100 WBC (Bld) 5.5 % Low 20 - 40 % [facility] Work Phone: MCH (RBC) [Entitic mass] 31.6 pg 26 - 34 pg [facility] Work Phone: MCHC (RBC) [Mass/Vol] 36.1 % High 32 - 36 % [facility] Work Phone: MCV (RBC) [Entitic vol] 87.5 fL 80 - 98 fL [facility] Work Phone: Monocytes (Bld) [#/Vol] 0.7 10*3/uL 0 - 0.8 10*3/uL [facility] Work Phone: Monocytes/100 WBC (Bld) 5.2 % 2 - 10 % [facility] Work Phone: Platelet distribution width (Bld) [Ratio] 13.2 % 11.5 - 14.5 % [facility] Phone: Platelet mean volume (Bld) [Entitic vol] 9.0 fL 7.4 - 12.4 fL [employer] Work Phone: Comment on above: MPV is a calculated measurement using platelet volume ratio. Platelets (Bld) [#/Vol] 240 10*3/uL 140 - 440 10*3/uL [employer] Work Phone: [phone] RBC (Bld) [#/Vol] 5.38 10*6/uL 4.4 - 5.9 10*6/uL [employer] Work Phone: [phone] WBC (Bld) [#/Vol] 13.7 10*3/uL High 3.6 - 10.7 10*3/uL [employer] Work Phone: Test Performed by [employer] [facility], [address] [place] [address] LAB [employer] Work Phone: CT Abdomen Pelvis Wo Contras ton 11-27-2021 Patient Name: CORRIE QUEEN Computed Tomography ACCESSION EXAM DATE/TIME PROCEDURE ORDERING PROVIDER [id number] 11/27/2021 23:[address] Abdomen/Pelvis (No MD MIKE, TC PO, No IV) CPT code 03980 Reason For Exam (CT Abdomen/Pelvis (No PO, [...] WENDELL Transcribed Date and Time: 11/27/2021 11:11 [facility] Darrick Luke MD - 11/27/2021 Patient Name: CORRIE QUEEN Computed Tomography ACCESSION EXAM DATE/TIME PROCEDURE ORDERING PROVIDER [id number] 11/27/2021 23:[address] Abdomen/Pelvis (No MD MIKE, TC PO, No IV) CPT code 27996 Reason For Exam (CT Abdomen/Pelvis (No PO, [...] WENDELL Transcribed Date and Time: 11/27/2021 11:11 [employer] Work Phone: Radiology Study observation (narrative) [facility] Work Phone: [phone] CT Abdomen Pelvis Wo Contras tOrdered By: Darrick Luke on 11-27-2021 [employer] Work Phone: No Panel Informationon 11-27 Interpretation and review of laboratory results Abnormal [facility] Work Phone: Test Performed by [facility] [employer] [facility], [address] [place], [place] [address] , [address] LAB [facility] Work Phone: Urinalysison 11-27-2021 Appearance (U) Clear Clear NA [facility] Work Phone: [phone] Comment on above: . Bacteria, UA Negative Negative /[HPF] [facility] Work Phone: [phone] Comment on above: . Bilirubin Urine Negative Negative mg/dL [facility] Work Phone: [phone] Comment on above: . Color (U) LIGHT YELLOW Lt. Yellow NA [employer] Work Phone: [phone] Comment on above: . Glucose, Ur Normal Normal (<70) mg/dL [facility] Work Phone: [phone] Comment on above: . Ketones Ql (U) Negative Negative mg/dL [facility] Work Phone: [phone] Comment on above: . LEUKOCYTES, UA 25 Abnormal Negative Irina/uL [employer] Work Phone: [phone] Comment on above: . Mucous Threads Few Negative /[LPF] [facility] Work Phone: [phone] Comment on above: . Nitrite, Urine Negative Negative NA [facility] Work Phone: [phone] Comment on above: . Occult Blood,Urine Negative Negative mg/dL [facility] Work Phone: [phone] Comment on above: . pH (U) 5.0 [pH] [facility] Work Phone: [phone] Comment on above: . RBC, UA /[HPF] 0 - 2 /[HPF] [facility] Work Phone: [phone] Comment on above: . Specific [place], Urine [address] [facility] Work Phone: [phone] Comment on above: . Squam Epithel, UA 0-2 3 - 5 /[HPF] [facility] Work Phone: [phone] Comment on above: . Total Protein, Urine Negative Negativ e mg/dL [facility] Work Phone: [phone] Comment on above: . Urobilinogen, Urine Normal Normal (0-1) mg/dL [facility] Work Phone: [phone] Comment on above: . Volume 12 ml [facility] Work Phone: [phone] Comment on above: . WBC, UA /[HPF] 0 - 5 /[HPF] [facility] Work Phone: [phone] Comment on above: . [facility] Brain w/ + w/o Contrast Patient Name: CORRIE QUEEN Magnetic Resonance Imaging ACCESSION EXAM DATE/TIME PROCEDURE ORDERING PROVIDER [id number] 10/18/2021 12:20 EDT MRI Brain w/ + w/o [id number] -[id number], Contrast ROCIO CPT code 62543 Reason For Exam (MRI Brain w/ + [...] Transcribed Date and Time: 10/20/2021 8:17 Normal [facility] OT Bone Density DEXA Francisco Ske river 04-12-2021 OT Bone Density DEXA Francisco Skeleton Patient Name: CORRIE QUEEN Bone Density ACCESSION EXAM DATE/TIME PROCEDURE ORDERING PROVIDER [id number] 04/12/2021 09:15 EST OT Bone Density DEXA Francisoc DO BENITO RYAN D Skeleton CPT code 79486 Reason For Exam (OT Bone Density DEXA Francisco Skeleton) osteoporosis evaluation. elevated PTH Report DXA BONE DENSITOMETRY: CLINICAL INDICATION: osteoporosis evaluation. elevated PTH. Screening for osteoporosis. COMPARISON: None TECHNIQUE: Quantitative bone mineral densitometry of the hip, radius and lumbar spine was performed with a dual energy x-ray observed absorptiometry device - Weeleo at some institutions, HOLOGIC at others. Regions [...] recommendations for prevention of bone loss include: 6534-5286 mg calcium intake per day for adults [...] [place] of Knowledge Evidence - based Summaries. [facility] [employer] for Education and Research 2017. Report Dictated on Final Dictating Physician: MD VOGT JAMES Signed Date and Time: 04/13/2021 12:02 pm Signed by: MD VOGT JAMES Transcribed Date and Time: 04/13/2021 12:[address] [facility] [employer] [facility] OT Bone Density DEXA Axial S noriaurelianooneal 04-12-2021 OT Bone Density DEXA Axial Skeleton Patient Name: CORRIE QUEEN Bone Density ACCESSION EXAM DATE/TIME PROCEDURE ORDERING PROVIDER [id number] 04/12/2021 09:15 EST OT Bone Density DEXA DO THONGKENNEDI Axial Skeleton CPT code 08210 Reason For Exam (OT Bone Density DEXA Axial Skeleton) osteoporosis, at risk for osteoporosis. Report DXA BONE DENSITOMETRY: CLINICAL INDICATION: osteoporosis evaluation. elevated PTH. Screening for osteoporosis. COMPARISON: None TECHNIQUE: Quantitative bone mineral densitometry of the hip, radius and lumbar spine was performed with a dual energy x-ray observed absorptiometry device - Weeleo at some institutions, HOLOGIC at others. Regions [...] recommendations for prevention of bone loss include: 7967-7365 mg calcium intake per day for adults [...] [place] of Knowledge Evidence - based Summaries. [facility] for Education and Research 2017. Report Dictated on Final Dictating Physician: MD VOGT JAMES Signed Date and Time: 04/13/2021 12:02 pm Signed by: MD VOGT JAMES Transcribed Date and Time: 04/13/2021 12:03 Normal [facility] Comprehensive Metabolic Pane sumeet 12-26-2018 Albumin [Mass/Vol] 4.8 g/dL 3.5 - 5 g/dL [place], [place] ALP [Catalytic activity/Vol] 51 U/L 38 - 126 U/L [place] ALT [Catalytic activity/Vol] 30 U/L 13 - 69 U/L [place] Anion gap [Moles/Vol] 8 mmol/L [place], [place] AST [Catalytic activity/Vol] 25 U/L 15 - 46 U/L [place] Bilirubin Ql (U) 0.4 mg/dL 0.2 - 1.3 mg/dL [place] Calcium [Mass/Vol] 11.3 mg/dL High 8.4 - 10. 4 mg/dL [place] Chloride [Moles/Vol] 108 mmol/L High 98 - 10 7 mmol/L [place] CO2 [Moles/Vol] 24 mmol/L 22 - 30 mmol/L [place] Creatinine [Mass/Vol] 1.23 mg/dL 0.52 - 1.25 mg/dL [place] EGFR IF NonAfrican [place] >60.0 >60 mL/min [place] Comment on above: Source- MDRD equatio n with creatinine calibration to IDMS(NKDEP) eGFR not recommended for drug dose adjustment GFR/1.73 sq M predicted among blacks MDRD (S/P/Bld) [Vol rate/Area] mL/min/{1.73_m2} >60 mL/min [place] Glucose [Mass/Vol] 104 mg/dL High 70 - 100 mg/dL [place] Interpretation and review of laboratory results Abnormal [place] Potassium [Moles/Vol] 4.3 mmol/L 3.5 - 5.1 mmol/L [place] Protein [Mass/Vol] 7.7 g/dL 6.3 - 8.2 g/dL [place] Sodium [Moles/Vol] 140 mmol/L 135 - 145 mmol/L [place] Urea nitrogen [Mass/Vol] 19 mg/dL 7 - 20 mg/dL [place] Test Performed by [facility], [address] [place] [address] Creatinine, 24 HR Urineon Creatinine, 24H Ur 1.8 g/(24.h) 1 - 1.8 g/(24.h) [place] Creatinine, Urine 94.3 mg/dL [place] Otheron 12-26-2018 Test Performed by [facility], [address] [place] [address] POCT calcium ionizedon 12-26 Interpretation and review of laboratory results Abnormal [place] PH, IONIZED CALCIUM 7.36 [place] POC Ionized Calcium 5.30 mg/dL High 4.3 - 5. 2 mg/dL [place] Comment on above: Performed by CLIA ID : [id number] [place], [place] Test Performed by [facility], [address] PTH, Intacton 12-26-2018 Pth Intact 27 pg/mL 15 - 63 pg/mL [place] Test Performed by [facility] [employer] [facility], [address] [place] [address] Prolactinon 12-26-2018 Prolactin 13.7 ng/mL 3.7 - 17.9 ng/mL [place] Test Performed by [facility] [employer] [facility], [address] [place] [address] Sodium, urine, 24 houron Interpretation and review of laboratory results Abnormal [place] Sodium, 24H Ur 238 mmol/(24.h) High 40 - 220 mmol/(24.h) [place] Total Volume 1950 mL [place] T4, Freeon 12-26-2018 Free T4 [Mass/Vol] 0.87 ng/dL 0.78 - 2. 19 ng/dL [place] Test Performed by [facility], [address] , [address] TSH without Reflexon 019 TSH Qn 3.019 u[IU]/mL 0.465 - 4.68 u[IU]/mL [place] Test Performed by [facility], [address] , [address] Vitamin D 25 Hydroxyon 12-26 Vit D, 25-Hydroxy 40 ng/mL 30 - 100 ng/mL [place] Comment on above: Therapy is based on measurement of Total 25-OHD with the following classification levels: Less than 20 ng/mL: Indicative of Vit D deficiency 20-30 ng/mL: Suggests Vit D insufficiency Optimal: Greater than or equal to 30 ng/mL Test performed by [employer] Immunoassay, measuring Total Vitamin D, not individual fractions. Test Performed by [facility], [address] Vital Signs Date Time Vital Sign Value Performing Clinician Faci lity 12-02-2024 13:25-0400 Body height 187.[address] Justice Bailey DO Work Phone: [facility] 12-02-2024 13:25-0400 Body mass index (BMI) [Ratio] 28.8 kg/m2 Dr. Justice Bailey DO Work Phone: [facility] 12-02-2024 13:25-0400 Body weight 102.[address] Justice Bailey DO Work Phone: [facility] 11-09-2024 09:23-0400 Body height 187.[address] Justice Bailey DO Work Phone: [facility] 11-09-2024 09:23-0400 Body mass index (BMI) [Ratio] 28.2 kg/m2 Dr. Justice Bailey DO Work Phone: [facility] 11-09-2024 09:23-0400 Body weight 99.[address] Justice Bailey DO Work Phone: [facility] 10-08-2024 09:03-0400 Body height 187.[address] Justice Bailey DO Work Phone: [facility] 10-08-2024 09:03-0400 Body mass index (BMI) [Ratio] 30.2 kg/m2 Dr. Justice Bailey DO Work Phone: [facility] 10-08-2024 09:03-0400 Body temperature 97.6 [degF] Dr. Justice Bailey DO Work Phone: [facility] 10-08-2024 09:03-0400 Body weight 106.[address] Justice Bailey DO Work Phone: [facility] 10-08-2024 09:03-0400 Diastolic blood pressure 88 mm[Hg] Dr. Justice Bailey DO Work Phone: [facility] 10-08-2024 09:03-0400 Heart rate 90 /min Dr. Justice Bailey DO Work Phone: [facility] 10-08-2024 09:03-0400 Respiratory rate 16 /min Dr. Justice Bailey DO Work Phone: [facility] 10-08-2024 09:03-0400 SaO2% (BldA) [Mass fraction] 94 % Dr. Justice Bailey DO Work Phone: [facility] 10-08-2024 09:03-0400 Systolic blood pressure 138 mm[Hg] Dr. Justice Bailey DO Work Phone: [facility] 10-03-2024 12:33-0400 Diastolic blood pressure 73 mm[Hg] Dr. Justice Bailey DO Work Phone: [facility] 10-03-2024 12:33-0400 Heart rate 70 /min Dr. Justice Bailey DO Work Phone: [facility] 10-03-2024 12:33-0400 Systolic blood pressure 151 mm[Hg] Dr. Justice Bailey DO Work Phone: [facility] 10-03-2024 10:33-0400 Body height 187.[address] Justice Bailey DO Work Phone: [facility] 10-03-2024 10:33-0400 Body mass index (BMI) [Ratio] 30.1 kg/m2 Dr. Justice Bailey DO Work Phone: [facility] 10-03-2024 10:33-0400 Body temperature 97.6 [degF] Dr. Justice Bailey DO Work Phone: [facility] 10-03-2024 10:33-0400 Body weight 106.[address] Justice Bailey DO Work Phone: [facility] 10-03-2024 10:33-0400 Respiratory rate 18 /min Dr. Justice Bailey DO Work Phone: [facility] 10-03-2024 10:33-0400 SaO2% (BldA) [Mass fraction] 98 % Dr. Justice Bailey DO Work Phone: [facility] 08-11-2024 15:31-0400 Body height 187.96 cm Dolly Clarke PA Work Phone: [facility] 08-11-2024 15:31-0400 Body mass index (BMI) [Ratio] 30 kg/m2 Dolly SHAFFER Work Phone: [facility] 08-11-2024 15:31-0400 Body temperature 97.4 [degF] Dolly Clarke PA Work Phone: [facility] 08-11-2024 15:31-0400 Body weight 106.25 kg Dolly Clarke PA Work Phone: [facility] 08-11-2024 15:31-0400 Diastolic blood pressure 60 mm[Hg] Dolly Clarke PA Work Phone: [facility] 08-11-2024 15:31-0400 Heart rate 83 /min Dolly Clarke PA Work Phone: [facility] 08-11-2024 15:31-0400 Respiratory rate 16 /min Dolly Clarke PA Work Phone: [facility] 08-11-2024 15:31-0400 SaO2% (BldA) [Mass fraction] 92 % Dolly Clarke PA Work Phone: [facility] 08-11-2024 15:31-0400 Systolic blood pressure 102 mm[Hg] Dolly Clrake PA Work Phone: [facility] 08-02-2024 10:26-0400 Body temperature 97.8 [degF] Dolly Clarke PA Work Phone: [facility] 08-02-2024 10:26-0400 Diastolic blood pressure 83 mm[Hg] Dolly Clarke PA Work Phone: [facility] 08-02-2024 10:26-0400 Heart rate 66 /min Dolly Clarke PA Work Phone: [facility] 08-02-2024 10:26-0400 Respiratory rate 15 /min Dolly Clarke PA Work Phone: [facility] 08-02-2024 10:26-0400 SaO2% (BldA) [Mass fraction] 97 % Dolly Clarke PA Work Phone: [facility] 08-02-2024 10:26-0400 Systolic blood pressure 125 mm[Hg] Dolly Clarke PA Work Phone: [facility] 08-02-2024 08:47-0400 Body height 187.96 cm Dolly Clarke PA Work Phone: [facility] 08-02-2024 08:47-0400 Body mass index (BMI) [Ratio] 29.9 kg/m2 Dolly Clarke PA Work Phone: [facility] 08-02-2024 08:47-0400 Body weight 105.68 kg Dolly Clarke PA Work Phone: [facility] 07-17-2024 08:15-0400 Body mass index (BMI) [Ratio] 30.2 kg/m2 Dolly Clarke PA Work Phone: [facility] 07-17-2024 08:15-0400 Body weight 106.76 kg Dolly Clarke PA Work Phone: [facility] 07-17-2024 08:15-0400 Diastolic blood pressure 82 mm[Hg] Dolly Clarke PA Work Phone: [facility] 07-17-2024 08:15-0400 Heart rate 70 /min Dolly Clarke PA Work Phone: [facility] 07-17-2024 08:15-0400 SaO2% (BldA) [Mass fraction] 95 % Dolly Clarke PA Work Phone: [facility] 07-17-2024 08:15-0400 Systolic blood pressure 153 mm[Hg] Dolly Clarke PA Work Phone: [facility] 05-28-2024 12:18-0400 Body height 187.96 cm Sanjana Garciao [employer]C Work Phone: [facility] 05-28-2024 12:18-0400 Body temperature 97.9 [degF] Sanjana Garciao [employer]C Work Phone: [facility] 05-28-2024 12:18-0400 Diastolic blood pressure 76 mm[Hg] Sanjana Garciao [employer]C Work Phone: [facility] 05-28-2024 12:18-0400 Heart rate 80 /min Sanjana Garciao [employer]C Work Phone: [facility] 05-28-2024 12:18-0400 SaO2% (BldA) [Mass fraction] 95 % Sanjana Garciao [employer]C Work Phone: [facility] 05-28-2024 12:18-0400 Systolic blood pressure 122 mm[Hg] Sanjana Garciao [employer]C Work Phone: [facility] 03-31-2024 10:21-0500 Body mass index (BMI) [Ratio] 30.5 kg/m2 Sanjanajazzy Gillullo [employer]C Work Phone: [facility] 03-31-2024 10:21-0500 Body temperature 97 [degF] Sanjanajazzy Gillullo [employer]C Work Phone: [facility] 03-31-2024 10:21-0500 Body weight 107.95 kg Sanjanajazzy Gillullo [employer]C Work Phone: [facility] 03-31-2024 10:21-0500 Diastolic blood pressure 68 mm[Hg] Sanjana Ferullo [employer]C Work Phone: [facility] 03-31-2024 10:21-0500 Heart rate 67 /min Sanjana Jairoullo [employer]C Work Phone: [facility] 03-31-2024 10:21-0500 Respiratory rate 16 /min Sanjana Jairoullo [employer]C Work Phone: [facility] 03-31-2024 10:21-0500 SaO2% (BldA) [Mass fraction] 93 % Sanjana Ferullo [employer]C Work Phone: [facility] 03-31-2024 10:21-0500 Systolic blood pressure 124 mm[Hg] Sanjanajazzy Gillullo [employer]C Work Phone: [facility] 03-18-2024 13:30-0500 Body temperature 98.2 [degF] Sanjana Jairoullo [employer]C Work Phone: [facility] 03-18-2024 13:30-0500 Body weight 109.76 kg Sanjana Ferullo [employer]C Work Phone: [facility] 03-18-2024 13:30-0500 Diastolic blood pressure 77 mm[Hg] Sanjana Ferullo [employer]C Work Phone: [facility] 03-18-2024 13:30-0500 Heart rate 76 /min Sanjana Ferullo [employer]C Work Phone: [facility] 03-18-2024 13:30-0500 Respiratory rate 16 /min Sanjana Hale [employer]C Work Phone: [facility] 03-18-2024 13:30-0500 SaO2% (BldA) [Mass fraction] 94 % Sanjana Garciao [employer]C Work Phone: [facility] 03-18-2024 13:30-0500 Systolic blood pressure 138 mm[Hg] Sanjana Garciao [employer]C Work Phone: [facility] 02-25-2024 10:24-0500 Body mass index (BMI) [Ratio] 30.6 kg/m2 Sanjana Garciao [employer]C Work Phone: [facility] 02-25-2024 10:24-0500 Body temperature 98.3 [degF] Sanjana Garciao [employer]C Work Phone: [facility] 02-25-2024 10:24-0500 Body weight 108.12 kg Sanjana Hale [employer]C Work Phone: [facility] 02-25-2024 10:24-0500 Diastolic blood pressure 84 mm[Hg] Sanjana Garciao [employer]C Work Phone: [facility] 02-25-2024 10:24-0500 Heart rate 78 /min Sanjana Hale [employer]C Work Phone: [facility] 02-25-2024 10:24-0500 SaO2% (BldA) [Mass fraction] 96 % Sanjana Garciao [employer]C Work Phone: [facility] 02-25-2024 10:24-0500 Systolic blood pressure 150 mm[Hg] Sanjana Garciao [employer]C Work Phone: [facility] 07-31-2023 09:15-0400 Body height 188 cm Rocio [...] 118 mm[Hg] Rocio Ruiz MD Work Phone: [facility] 06-06-2023 10:56-0400 Body height 187.[address] Ryan Ceja Work Phone: [facility] 06-06-2023 10:56-0400 Body mass index (BMI) [Ratio] 30.4 kg/m2 Dr. Ryan Ceja Work Phone: [facility] 06-06-2023 10:56-0400 Body temperature 98.1 [degF] Dr. Ryan Ceja Work Phone: [facility] 06-06-2023 10:56-0400 Body weight 107.[address] Ryan Ceja Work Phone: [facility] 06-06-2023 10:56-0400 Diastolic blood pressure 80 mm[Hg] Dr. Ryan Ceja Work Phone: [facility] 06-06-2023 10:56-0400 Heart rate 77 /min Dr. Ryan Ceja Work Phone: [facility] 06-06-2023 10:56-0400 Respiratory rate 17 /min Dr. Ryan Ceja Work Phone: [facility] 06-06-2023 10:56-0400 SaO2% (BldA) [Mass fraction] 98 % Dr. Ryan Ceja Work Phone: [facility] 06-06-2023 10:56-0400 Systolic blood pressure 148 mm[Hg] Dr. Ryan Ceja Work Phone: [facility] 05-09-2023 15:00-0400 Body height 187.[address] Ryan Ceja Work Phone: [facility] 05-09-2023 15:00-0400 Body mass index (BMI) [Ratio] 30.8 kg/m2 Dr. Ryan Ceja Work Phone: [facility] 05-09-2023 15:00-0400 Body temperature 98.8 [degF] Dr. Ryan Ceja Work Phone: [facility] 05-09-2023 15:00-0400 Body weight 108.[address] Ryan Ceja Work Phone: [facility] 05-09-2023 15:00-0400 Diastolic blood pressure 62 mm[Hg] Dr. Ryan Ceja Work Phone: [facility] 05-09-2023 15:00-0400 Heart rate 74 /min Dr. Ryan Ceja Work Phone: [facility] 05-09-2023 15:00-0400 Respiratory rate 18 /min Dr. Ryan Ceja Work Phone: [facility] 05-09-2023 15:00-0400 SaO2% (BldA) [Mass fraction] 95 % Dr. Ryan Ceja Work Phone: [facility] 05-09-2023 15:00-0400 Systolic blood pressure 112 mm[Hg] Dr. Ryan Ceja Work Phone: [facility] 03-21-2023 08:44-0500 Body height 187.[address] Ryan Ceja Work Phone: [facility] 03-21-2023 08:44-0500 Body mass index (BMI) [Ratio] 30.4 kg/m2 Dr. Ryan Ceja Work Phone: [facility] 03-21-2023 08:44-0500 Body temperature 97.2 [degF] Dr. Ryan Ceja Work Phone: [facility] 03-21-2023 08:44-0500 Body weight 107.[address] Ryan Ceja Work Phone: [facility] 03-21-2023 08:44-0500 Diastolic blood pressure 60 mm[Hg] Dr. Ryan Ceja Work Phone: [facility] 03-21-2023 08:44-0500 Heart rate 84 /min Dr. Ryan Ceja Work Phone: [facility] 03-21-2023 08:44-0500 Respiratory rate 16 /min Dr. Ryan Ceja Work Phone: [facility] 03-21-2023 08:44-0500 SaO2% (BldA) [Mass fraction] 98 % Dr. Ryan Ceja Work Phone: [facility] 03-21-2023 08:44-0500 Systolic blood pressure 138 mm[Hg] Dr. Ryan Ceja Work Phone: [facility] 03-06-2023 14:40-0500 Diastolic blood pressure 79 mm[Hg] Dr. Ryan Ceja Work Phone: [facility] 03-06-2023 14:40-0500 Systolic blood pressure 128 mm[Hg] Dr. Ryan Ceja Work Phone: [facility] 03-06-2023 14:19-0500 Body temperature 98 [degF] Dr. Ryan Ceja Work Phone: [facility] 03-06-2023 14:19-0500 Body weight 107.[address] Ryan Ceja Work Phone: [facility] 03-06-2023 14:19-0500 Heart rate 94 /min Dr. Ryan Ceja Work Phone: [facility] 03-06-2023 14:19-0500 Respiratory rate 16 /min Dr. Ryan Ceja Work Phone: [facility] 03-06-2023 14:19-0500 SaO2% (BldA) [Mass fraction] 98 % Dr. Ryan Ceja Work Phone: [facility] 02-20-2023 10:31-0500 Body temperature 98.4 [degF] Dr. Ryan Ceja Work Phone: [facility] 02-20-2023 10:31-0500 Body weight 109.[address] Ryan Ceja Work Phone: [facility] 02-20-2023 10:31-0500 Diastolic blood pressure 88 mm[Hg] Dr. Ryan Ceja Work Phone: [facility] 02-20-2023 10:31-0500 Heart rate 83 /min Dr. Ryan Ceja Work Phone: [facility] 02-20-2023 10:31-0500 Respiratory rate 16 /min Dr. Ryan Ceja Work Phone: [facility] 02-20-2023 10:31-0500 SaO2% (BldA) [Mass fraction] 97 % Dr. Ryan Ceja Work Phone: [facility] 02-20-2023 10:31-0500 Systolic blood pressure 144 mm[Hg] Dr. Ryan Ceja Work Phone: [facility] 02-13-2023 16:20-0500 Body temperature 97.8 [degF] Dr. Ryan Ceja Work Phone: [facility] 02-13-2023 16:20-0500 Diastolic blood pressure 68 mm[Hg] Dr. Ryan Ceja Work Phone: [facility] 02-13-2023 16:20-0500 Heart rate 60 /min Dr. Ryan Ceja Work Phone: [facility] 02-13-2023 16:20-0500 Respiratory rate 18 /min Dr. Ryan Ceja Work Phone: [facility] 02-13-2023 16:20-0500 SaO2% (BldA) [Mass fraction] 99 % Dr. Ryan Ceja Work Phone: [facility] 02-13-2023 16:20-0500 Systolic blood pressure 125 mm[Hg] Dr. Ryan Ceja Work Phone: [facility] 02-12-2023 06:38-0500 Body height 187.[address] Ryan Ceja Work Phone: [facility] 02-12-2023 06:38-0500 Body mass index (BMI) [Ratio] 31.1 kg/m2 Dr. Ryan Ceja Work Phone: [facility] 02-12-2023 06:38-0500 Body weight [address] Ryan Ceja Work Phone: [facility] 01-31-2023 14:32-0500 Body height 187.[address] Ryan Ceja Work Phone: [facility] 01-31-2023 14:32-0500 Body mass index (BMI) [Ratio] 30.7 kg/m2 Dr. Ryan Ceja Work Phone: [facility] 01-31-2023 14:32-0500 Body temperature 98.2 [degF] Dr. Ryan Ceja Work Phone: [facility] 01-31-2023 14:32-0500 Body weight 108.[address] Ryan Ceja Work Phone: [facility] 01-31-2023 14:32-0500 Diastolic blood pressure 74 mm[Hg] Dr. Ryan Ceja Work Phone: [facility] 01-31-2023 14:32-0500 Heart rate 73 /min Dr. Ryan Ceja Work Phone: [facility] 01-31-2023 14:32-0500 Respiratory rate 18 /min Dr. Ryan Ceja Work Phone: [facility] 01-31-2023 14:32-0500 SaO2% (BldA) [Mass fraction] 97 % Dr. Ryan Ceja Work Phone: [facility] 01-31-2023 14:32-0500 Systolic blood pressure 123 mm[Hg] Dr. Ryan Ceja Work Phone: [facility] 01-02-2023 10:40-0500 Body height 188 cm Rocio Ruiz MD Work Phone: [facility] 01-02-2023 10:40-0500 Body mass index (BMI) [Ratio] 31.2 kg/m2 Rocio Ruiz MD Work Phone: [facility] 01-02-2023 10:40-0500 Body weight 110.22 kg Rocio Ruiz MD Work Phone: [facility] 01-02-2023 10:40-0500 Diastolic blood pressure 62 mm[Hg] Rocio Ruiz MD Work Phone: [facility] 01-02-2023 10:40-0500 Heart rate 80 /min Rocio Ruiz MD Work Phone: [facility] 01-02-2023 10:40-0500 Systolic blood pressure 122 mm[Hg] Rocio Ruiz MD Work Phone: [facility] 01-02-2023 08:40-0500 Body height 188 cm Ziggy Arauz MD Work Phone: [facility] 01-02-2023 08:40-0500 Body mass index (BMI) [Ratio] 30.17 kg/m2 Ziggy Arauz MD Work Phone: [facility] 01-02-2023 08:40-0500 Body weight 106.59 kg Ziggy Arauz MD Work Phone: [facility] 12-25-2022 19:57-0400 Diastolic blood pressure 74 mm[Hg] [...] 16 /min Ziggy Arauz MD Work Phone: [facility] 12-25-2022 16:45-0400 SaO2% (BldA) [Mass fraction] 96 % Ziggy Arauz MD Work Phone: [facility] 12-25-2022 16:45-0400 Systolic blood pressure 132 mm[Hg] Ziggy Arauz MD Work Phone: [facility] 12-25-2022 08:28-0400 Body height 188 cm Ziggy Arauz MD Work Phone: [facility] 12-25-2022 08:28-0400 Body mass index (BMI) [Ratio] 30.94 kg/m2 Ziggy Arauz MD Work Phone: [facility] 12-25-2022 08:28-0400 Body temperature 97 [degF] Ziggy Arauz MD Work Phone: [facility] 12-25-2022 08:28-0400 Body weight 109.32 kg Ziggy Arauz MD Work Phone: [facility] 12-22-2022 10:17-0400 Diastolic blood pressure 85 mm[Hg] Pacheco Negron MD Work Phone: [facility] 12-22-2022 10:17-0400 Heart rate 50 /min Pacheco Negron MD Work Phone: [facility] 12-22-2022 10:17-0400 Respiratory rate 16 /min Pacheco Negron MD Work Phone: [facility] 12-22-2022 10:17-0400 SaO2% (BldA) [Mass fraction] 98 % Pacheco Negron MD Work Phone: [facility] 12-22-2022 10:17-0400 Systolic blood pressure 148 mm[Hg] Pacheco Negron MD Work Phone: [facility] 12-22-2022 08:04-0400 Body mass index (BMI) [Ratio] 30.94 kg/m2 Pacheco Negron MD Work Phone: [facility] 12-22-2022 08:04-0400 Body temperature 97.2 [degF] Pacheco Negron MD Work Phone: [facility] 12-22-2022 08:04-0400 Body weight 109.32 kg Pacheco Negron MD Work Phone: [facility] 12-07-2022 15:23-0400 Body temperature 97.59 [degF] Yolanda Voll DO Work Phone: [facility] 12-07-2022 15:23-0400 Diastolic blood pressure 64 mm[Hg] Yolanda Voll DO Work Phone: [facility] 12-07-2022 15:23-0400 Heart rate 62 /min Yolanda Voll DO Work Phone: [facility] 12-07-2022 15:23-0400 Respiratory rate 16 /min Yolanda Voll DO Work Phone: [facility] 12-07-2022 15:23-0400 SaO2% (BldA) [Mass fraction] 95 % Yolanda Voll DO Work Phone: [facility] 12-07-2022 15:23-0400 Systolic blood pressure 110 mm[Hg] Yolanda Voll DO Work Phone: [facility] 12-07-2022 09:19-0400 Body height 188 cm Yolanda Voll DO Work Phone: [facility] 12-07-2022 09:19-0400 Body mass index (BMI) [Ratio] 30.81 kg/m2 Yolanda Voll DO Work Phone: [facility] 12-07-2022 09:19-0400 Body weight 108.86 kg Yolanda Voll DO Work Phone: [facility] 11-14-2022 10:54-0400 Body mass index (BMI) [Ratio] 31.3 kg/m2 Cheryl Basilio MD Work Phone: [facility] 11-14-2022 10:54-0400 Body weight 110.59 kg Cheryl Basilio MD Work Phone: [facility] 11-14-2022 10:54-0400 Diastolic blood pressure 84 mm[Hg] Cheryl Basilio MD Work Phone: [facility] 11-14-2022 10:54-0400 Heart rate 91 /min Cheryl Basilio MD Work Phone: [facility] 11-14-2022 10:54-0400 SaO2% (BldA) [Mass fraction] 94 % Cheryl Basilio MD Work Phone: [facility] 11-14-2022 10:54-0400 Systolic blood pressure 137 mm[Hg] Cheryl Basilio MD Work Phone: [facility] 10-16-2022 07:25-0400 Body temperature 98.2 [degF] Natacha Skiffey DO Work Phone: [facility] 10-16-2022 07:25-0400 Diastolic blood pressure 92 mm[Hg] Natacha Skiffey DO Work Phone: [facility] 10-16-2022 07:25-0400 Heart rate 68 /min Natacha Skiffey DO Work Phone: [facility] 10-16-2022 07:25-0400 Respiratory rate 17 /min Natacha Skiffey DO Work Phone: [facility] 10-16-2022 07:25-0400 SaO2% (BldA) [Mass fraction] 97 % Natacha Skiffey DO Work Phone: [facility] 10-16-2022 07:25-0400 Systolic blood pressure 148 mm[Hg] Natacha Skiffey DO Work Phone: [facility] 10-12-2022 16:15-0400 Diastolic blood pressure 72 mm[Hg] Pacheco Negron MD Work Phone: [facility] 10-12-2022 16:15-0400 Respiratory rate 16 /min Pacheco Negron MD Work Phone: [facility] 10-12-2022 16:15-0400 SaO2% (BldA) [Mass fraction] 98 % Pacheco Negron MD Work Phone: [facility] 10-12-2022 16:15-0400 Systolic blood pressure 138 mm[Hg] Pacheco Negron MD Work Phone: [facility] 10-12-2022 13:36-0400 Body mass index (BMI) [Ratio] 30.17 kg/m2 Pacheco Negron MD Work Phone: [facility] 10-12-2022 13:36-0400 Body temperature 97.81 [degF] Pacheco Negron MD Work Phone: [facility] 10-12-2022 13:36-0400 Body weight 106.59 kg Pacheco Negron MD Work Phone: [facility] 10-12-2022 13:36-0400 Heart rate 91 /min Pacheco Negron MD Work Phone: [facility] 10-11-2022 08:27-0400 Body height 188 cm Cheryl Basilio MD Work Phone: [facility] 10-11-2022 08:27-0400 Body mass index (BMI) [Ratio] 29.89 kg/m2 Cheryl Basilio MD Work Phone: [facility] 10-11-2022 08:27-0400 Body weight 105.6 kg Cheryl Basilio MD Work Phone: [facility] 10-11-2022 08:27-0400 Diastolic blood pressure 68 mm[Hg] Cheryl Basilio MD Work Phone: [facility] 10-11-2022 08:27-0400 Heart rate 76 /min Cheryl Basilio MD Work Phone: [facility] 10-11-2022 08:27-0400 SaO2% (BldA) [Mass fraction] 93 % Cheryl Basilio MD Work Phone: [facility] 10-11-2022 08:27-0400 Systolic blood pressure 122 mm[Hg] Cheryl Basilio MD Work Phone: [facility] 10-10-2022 12:42-0400 Body height 188 cm Donna Roberts DO Work Phone: [facility] 10-10-2022 12:42-0400 Body mass index (BMI) [Ratio] 30.15 kg/m2 Donna Roberts DO Work Phone: [facility] 10-10-2022 12:42-0400 Body weight 106.5 kg Donna Roberts DO Work Phone: [facility] 10-10-2022 12:42-0400 Diastolic blood pressure 74 mm[Hg] Donna Roberts DO Work Phone: [facility] 10-10-2022 12:42-0400 Heart rate 78 /min Donna Roberts DO Work Phone: [facility] 10-10-2022 12:42-0400 Respiratory rate 18 /min Donna Roberts DO Work Phone: [facility] 10-10-2022 12:42-0400 SaO2% (BldA) [Mass fraction] 93 % Donna Roberts DO Work Phone: [facility] Comment on above: Room air at rest 10-10-2022 12:42-0400 Systolic blood pressure 108 mm[Hg] Donna Roberts DO Work Phone: [facility] 09-13-2022 11:46-0400 Body mass index (BMI) [Ratio] 30.53 kg/m2 Chana Iqraenthal MANAGER CLIENT SERVICE - CLINICAL PROJECT LEADER Work Phone: [facility] 09-13-2022 11:46-0400 Body temperature 98.2 [degF] Chana Bridenthal MANAGER CLIENT SERVICE - CLINICAL PROJECT LEADER Work Phone: [facility] 09-13-2022 11:46-0400 Body weight 107.86 kg Chana Iqraenthal MANAGER CLIENT SERVICE - CLINICAL PROJECT LEADER Work Phone: [facility] 09-13-2022 11:46-0400 Diastolic blood pressure 80 mm[Hg] Chana Iqraenthal MANAGER CLIENT SERVICE - CLINICAL PROJECT LEADER Work Phone: [facility] 09-13-2022 11:46-0400 Heart rate 68 /min Chanaaura Escalonaenthal MANAGER CLIENT SERVICE - CLINICAL PROJECT LEADER Work Phone: [facility] 09-13-2022 11:46-0400 Respiratory rate 20 /min Chanaaura Escalonaenthal MANAGER CLIENT SERVICE - CLINICAL PROJECT LEADER Work Phone: [facility] 09-13-2022 11:46-0400 Systolic blood pressure 138 mm[Hg] Chana Bridenthal MANAGER CLIENT SERVICE - CLINICAL PROJECT LEADER Work Phone: [facility] 08-17-2022 08:17-0400 Body height 188 cm Tayler Rivas MANAGER CLIENT SERVICE - CLINICAL PROJECT LEADER Work Phone: [facility] 08-17-2022 08:17-0400 Body mass index (BMI) [Ratio] 30.3 kg/m2 Tayler Rivas MANAGER CLIENT SERVICE - CLINICAL PROJECT LEADER Work Phone: [facility] 08-17-2022 08:17-0400 Body weight 107.05 kg Tayler Rivas MANAGER CLIENT SERVICE - CLINICAL PROJECT LEADER Work Phone: [facility] 08-17-2022 08:17-0400 Diastolic blood pressure 76 mm[Hg] Tayler Rob MANAGER CLIENT SERVICE - CLINICAL PROJECT LEADER Work Phone: [facility] 08-17-2022 08:17-0400 Heart rate 59 /min Tayler Rob MANAGER CLIENT SERVICE - CLINICAL PROJECT LEADER Work Phone: [facility] 08-17-2022 08:17-0400 SaO2% (BldA) [Mass fraction] 98 % Tayler Rivas MANAGER CLIENT SERVICE - CLINICAL PROJECT LEADER Work Phone: [facility] 08-17-2022 08:17-0400 Systolic blood pressure 122 mm[Hg] Tayler Rivas MANAGER CLIENT SERVICE - CLINICAL PROJECT LEADER Work Phone: [facility] 06-19-2022 13:48-0400 Body height 188 cm Leanne Perales MD Work Phone: [facility] 06-19-2022 13:48-0400 Body mass index (BMI) [Ratio] 30.66 kg/m2 Leanne Perales MD Work Phone: [facility] 06-19-2022 13:48-0400 Body weight 108.32 kg Leanne Perales MD Work Phone: [facility] 06-19-2022 13:48-0400 Diastolic blood pressure 82 mm[Hg] Leanne Perales MD Work Phone: [facility] 06-19-2022 13:48-0400 Heart rate 75 /min Leanne Perales MD Work Phone: [facility] 06-19-2022 13:48-0400 Systolic blood pressure 139 mm[Hg] Leanne Perales MD Work Phone: [facility] 05-17-2022 11:46-0400 Diastolic blood pressure 67 mm[Hg] Leanne Perales MD Work Phone: [facility] 05-17-2022 11:46-0400 Heart rate 67 /min Leanne Perales MD Work Phone: [facility] 05-17-2022 11:46-0400 Respiratory rate 20 /min Leanne Perales MD Work Phone: [facility] 05-17-2022 11:46-0400 Systolic blood pressure 122 mm[Hg] Leanne Perales MD Work Phone: [facility] 03-06-2022 14:46-0500 Body height 188 cm Leanne Perales MD Work Phone: [facility] 03-06-2022 14:46-0500 Body mass index (BMI) [Ratio] 30.4 kg/m2 Leanne Perales MD Work Phone: [facility] 03-06-2022 14:46-0500 Body weight 107.41 kg Leanne Perales MD Work Phone: [facility] 03-06-2022 14:46-0500 Diastolic blood pressure 72 mm[Hg] Leanne Perales MD Work Phone: [facility] 03-06-2022 14:46-0500 Heart rate 74 /min Leanne Perales MD Work Phone: [facility] 03-06-2022 14:46-0500 Systolic blood pressure 120 mm[Hg] Leanne Perales MD Work Phone: [facility] 02-27-2022 14:16-0500 Body temperature 97.7 [degF] Chana Bridenthal MANAGER CLIENT SERVICE - CLINICAL PROJECT LEADER Work Phone: [facility] 02-27-2022 14:16-0500 Diastolic blood pressure 80 mm[Hg] Chana Bridenthal MANAGER CLIENT SERVICE - CLINICAL PROJECT LEADER Work Phone: [facility] 02-27-2022 14:16-0500 Systolic blood pressure 138 mm[Hg] Chana Bridenthal MANAGER CLIENT SERVICE - CLINICAL PROJECT LEADER Work Phone: [facility] 02-27-2022 13:35-0500 Body mass index (BMI) [Ratio] 30.17 kg/m2 Chana Bridenthal MANAGER CLIENT SERVICE - CLINICAL PROJECT LEADER Work Phone: [facility] 02-27-2022 13:35-0500 Body weight 106.59 kg Chana Bridenthal MANAGER CLIENT SERVICE - CLINICAL PROJECT LEADER Work Phone: [facility] 02-27-2022 13:35-0500 Heart rate 69 /min Chana Bridenthal MANAGER CLIENT SERVICE - CLINICAL PROJECT LEADER Work Phone: [facility] [employer] 12-05-2021 20:43-0400 Body temperature 98.1 [degF] Barry Leon MD Work Phone: [facility] 12-05-2021 20:43-0400 Diastolic blood pressure 85 mm[Hg] Barry Leon MD Work Phone: [facility] 12-05-2021 20:43-0400 Heart rate 68 /min Barry Leon MD Work Phone: [facility] 12-05-2021 20:43-0400 Respiratory rate 18 /min Barry Leon MD Work Phone: [facility] 12-05-2021 20:43-0400 SaO2% (BldA) [Mass fraction] 94 % Barry Leon MD Work Phone: [facility] 12-05-2021 20:43-0400 Systolic blood pressure 145 mm[Hg] Barry Leon MD Work Phone: [facility] 12-01-2021 10:17-0400 Body height 188 cm Barry Leon MD Work Phone: [facility] 12-01-2021 10:17-0400 Body mass index (BMI) [Ratio] 30.3 kg/m2 Barry Leon MD Work Phone: [facility] 12-01-2021 10:17-0400 Body weight 107.05 kg Barry Leon MD Work Phone: [facility] 11-27-2021 23:28-0400 Diastolic blood pressure 78 mm[Hg] Tc Spence MD Work Phone: [facility] 11-27-2021 23:28-0400 Heart rate 83 /min Tc Spence MD Work Phone: [facility] 11-27-2021 23:28-0400 Respiratory rate 16 /min Tc Spence MD Work Phone: [facility] 11-27-2021 23:28-0400 SaO2% (BldA) [Mass fraction] 97 % Tc Spence MD Work Phone: [facility] 11-27-2021 23:28-0400 Systolic blood pressure 127 mm[Hg] Tc Spence MD Work Phone: [facility] 11-27-2021 20:34-0400 Body height 188 cm Tc Spence MD Work Phone: [facility] 11-27-2021 20:34-0400 Body mass index (BMI) [Ratio] 29.53 kg/m2 Tc Spence MD Work Phone: [facility] 11-27-2021 20:34-0400 Body temperature 98.2 [degF] Tc Spence MD Work Phone: [facility] 11-27-2021 20:34-0400 Body weight 104.33 kg Tc Spence MD Work Phone: [facility] Encounters Encounter Date Encounter Type Care Provider Facility Start: 12-02-2024 End: 12-02-2024 Patient encounter procedure Sherry SHAFFER -[facility] Work Phone: Start: 12-02-2024 End: 12-02-[address] Justice Bailey DO Work Phone: -[facility] Start: 11-23-2024 Patient encounter procedure Sherry SHAFFER [facility] Work Phone: Start: 11-23-2024 End: 11-23-2024 ambulatory Sherry Venegas Facility:[facility] Start: 11-09-2024 End: 11-09-[address] Carl Mccullough MD -[facility] Start: 11-09-2024 End: 11-09-[address] Justice Bailey DO Work Phone: -[facility] Start: 10-09-2024 End: 10-09-[address] Justice Bailey DO Work Phone: [facility] Start: 10-09-2024 End: 10-09-2024 Patient encounter procedure Xiomara Johnston GREASE BUFFER-C -[facility] Work Phone: Start: 10-08-2024 End: 10-08-2024 Patient encounter procedure Xiomara Johnston GREASE BUFFER-C -[facility] Work Phone: Start: 10-08-2024 End: 10-09-[address] Justice Bailey DO Work Phone: -[facility] Start: 10-03-2024 End: 10-03-2024 Emergency department patient visit Dr. Justice Bailey DO Work Phone: -Emergency Department Work Phone: Start: 08-11-2024 End: 08-11-[address] Justice Issa DO -[facility] Work Phone: Start: 08-11-2024 End: 08-11-2024 ambulatory Dolly SHAFFER Work Phone: [facility] Work Phone: Start: 08-02-2024 End: 08-02-2024 Emergency department patient visit Dolly SHAFFER Work Phone: -Emergency Department Work Phone: Start: 07-17-2024 End: 07-17-[address] Franky Brewer MD -[facility] Work Phone: Start: 07-17-2024 End: 07-17-2024 ambulatory Justice Bailey Facility:[facility] Start: 07-01-2024 Non-patient / Non-visit Estefany Gonzalez MA -[facility] Work Phone: Start: 07-01-2024 ambulatory Justice Bailey Facilit y:[facility] Start: 05-28-2024 End: 05-28-2024 Patient encounter procedure Stanislaw SHAFFER [facility] Work Phone: Start: 05-28-2024 End: 05-28-2024 ambulatory Sanjana Hale GREASE BUFFER-C Work Phone: [facility] Work Phone: Start: 05-28-2024 End: 05-28-2024 ambulatory Stanislaw SHAFFER Facility:[facility] Start: 05-14-2024 Non-patient / Non-visit Yolanda SHAFFER [facility] Start: 05-14-2024 ambulatory Justice Bailey Facilit y:[facility] Start: 04-20-2024 End: 04-20-2024 ambulatory SANJANA HALE MANAGER CLIENT SERVICE-CLINICAL PROJECT LEADER Facility:[facility] Start: 04-20-2024 End: 04-20-2024 Patient encounter procedure BASIM RAMSEY MD [facility] Start: 04-13-2024 ambulatory Ryan Ceja Facility:[facility] Start: 04-13-2024 Non-patient / Non-visit Dr. Ryan adams MD -[facility] Start: 04-13-2024 End: 04-13-2024 Patient encounter procedure Dolly SHAFFER -[facility] Work Phone: Start: 04-13-2024 End: 04-13-2024 ambulatory Justice Bailey Facility:[facility] Start: 03-31-2024 End: 03-31-[address] Justice Issa DO -[facility] Work Phone: Start: 03-31-2024 End: 03-31-2024 ambulatory Justice Bailey Facility:[facility] Start: 03-18-2024 End: 03-18-2024 Patient encounter procedure Dolly SHAFFER -[facility] Work Phone: Start: 03-18-2024 End: 03-18-2024 ambulatory Sanjanajazzy Gillvaibhav Facility:[facility] Start: 02-25-2024 End: 02-25-2024 Patient encounter procedure David SHAFFER -[facility] Work Phone: Start: 02-25-2024 End: 02-25-2024 ambulatory Sanjana Jairovaibhav Facility:[facility] Start: 01-03-2024 End: 01-03-2024 ambulatory BASIM RAMSEY MD Facility:[facility] Start: 01-03-2024 End: 01-03-2024 Patient encounter procedure BASIM RAMSEY MD [facility] Start: 12-23-2023 End: 12-23-2023 ambulatory Sanjana Jairovaibhav Facility:[facility] Start: 09-16-2023 End: 09-16-2023 Subsequent hospital visit by physician Rocio Ruiz MD Work Phone: 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; Hypogonadotropic hypogonadism (HCC) Start: 07-31-2023 End: 07-31-2023 ambulatory SILVESTRE SEXTON [facility] Start: 06-21-2023 End: 06-21-2023 ambulatory GREASE BUFFER-C Sanjanajazzy Garciao Work Phone: [facility] Work Phone: Start: 06-21-2023 End: 06-21-2023 Patient encounter procedure GREASE BUFFER-C Sanjanajazzy Gillullo Work Phone: [facility]-Cat Scan, [facility] Work Phone: Start: 06-19-2023 Telephone encounter Adrienelier Alejandra LOAIZA Work Phone: [facility] Start: 06-18-2023 End: 06-18-2023 ambulatory GREASE BUFFER-C Sanjana Jairoullo Work Phone: [facility] Work Phone: Start: 06-18-2023 End: 06-18-2023 Patient encounter procedure GREASE BUFFER-C Sanjana Ferullo Work Phone: [facility]-Ultrasound, [facility] Work Phone: Start: 06-10-2023 End: 06-10-2023 ambulatory GREASE BUFFER-C Sanjana Ferullo Work Phone: [facility] Work Phone: Start: 06-10-2023 End: 06-10-[address] Ryan Ceja Work Phone: [facility]-Laboratory Work Phone: Start: 06-06-2023 End: 06-06-[address] Ryan Ceja Work Phone: [facility] Work Phone: Start: 06-06-2023 End: 06-06-[address] Ryan Ceja Work Phone: [facility] Internal Medicine Work Phone: Start: 05-28-2023 End: 05-28-[address] Ryan Ceja Work Phone: [facility] Work Phone: Start: 05-28-2023 End: 05-28-[address] Ryan Ceja Work Phone: [facility] Internal Medicine Work Phone: Start: 05-09-2023 End: 05-09-[address] Ryan Ceja Work Phone: [facility] Work Phone: Start: 05-09-2023 End: 05-09-[address] Ryan Ceja Work Phone: [facility]-Laboratory, Specimen Work Phone: Start: 05-09-2023 End: 05-09-[address] Ryan Ceja Work Phone: [facility] Internal Medicine Work Phone: Start: 04-21-2023 Refill Isa Dubois er GREASE BUFFER Work Phone: [facility] Start: 04-01-2023 Refill Isa Dubois er GREASE BUFFER Work Phone: [facility] Start: 03-21-2023 End: 03-21-[address] Ryan Ceja Work Phone: [facility] Work Phone: Start: 03-21-2023 End: 03-21-[address] Ryan Ceja Work Phone: [facility]-Laboratory, [facility] Start: 03-21-2023 End: 03-21-[address] Ryan Ceja Work Phone: [facility] Internal Medicine Work Phone: Start: 03-06-2023 End: 03-06-[address] Ryan Ceja Work Phone: [facility] Vascular Surgery Work Phone: Start: 02-20-2023 End: 02-20-[address] Ryan Ceja Work Phone: [facility] Vascular Surgery Work Phone: Start: 02-13-2023 Non-patient / Non-visit Dr. Kelvin Ceja Work Phone: [facility] Start: 02-12-2023 Non-patient / Non-visit Dr. Kelvin Ceja Work Phone: [facility] Start: 02-12-2023 End: 02-13-2023 Evaluation and management of inpatient Dr. Ryan Ceja Work Phone: [facility]-Progressive Care Unit Work Phone: Start: 02-12-2023 End: 02-13-[address] Ryan Ceja Work Phone: [facility] Work Phone: Start: 02-07-2023 End: 02-07-2023 Non-patient / Non-visit Dr. Ryan Ceja Work Phone: [facility] Work Phone: Start: 02-07-2023 End: 02-07-[address] Ryan Ceja Work Phone: [facility] Work Phone: Start: 02-07-2023 End: 02-07-[address] Ryan Ceja Work Phone: [facility] Work Phone: Start: 02-05-2023 Non-patient / Non-visit Dr. Kelvin Ceja Work Phone: [facility] Start: 02-05-2023 End: 02-05-[address] Ryan Ceja Work Phone: [facility] Work Phone: Start: 02-05-2023 End: 02-05-[address] Ryan Ceja Work Phone: [facility]-Cardiovascu lar Services Work Phone: Start: 01-31-2023 End: 01-31-[address] Ryan Ceja Work Phone: [facility] Vascular Surgery Work Phone: Start: 01-30-2023 Refill Cheryl centeno MD Work Phone: [facility] Start: 01-25-2023 Telephone encounter Rocio Ruiz MD Work Phone: [facility] Comment on above: To Dr Ruiz Start: 01-04-2023 Telephone encounter Rocio Ruiz MD Work Phone: [facility] Comment on above: Medication Problem Start: 01-03-2023 End: 01-03-2023 ambulatory ROCIO RUIZ [facility] Start: 01-02-2023 Telephone encounter [facility] Comment on above: Jayson Lowry refuses to fill script Start: 01-02-2023 End: 01-02-2023 Office outpatient visit 25 minutes Rocio Ruiz MD Work Phone: [facility] Comment on above: Macroprolactinoma (H CC) (Primary Dx); Pituitary adenoma (HCC); 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; Hypercalcemia Start: 01-02-2023 End: 01-02-2023 ambulatory ROCIO BARAHONADCARCELIA [facility] Start: 01-02-2023 End: 01-02-2023 Office outpatient visit 15 minutes Ziggy Arauz MD Work Phone: [facility] Comment on above: Chronic deep vein th rombosis (DVT) of iliofemoral vein (HCC) (Primary Dx) Start: 01-02-2023 End: 01-02-2023 [facility] Start: 12-25-2022 End: 12-25-2022 Emergency department patient visit Pacheco Ortiz MD Work Phone: [facility] Comment on above: Bleeding (Primary Dx ) Start: 12-25-2022 End: 12-25-2022 ambulatory [facility] Start: 12-25-2022 End: 12-25-2022 Subsequent hospital visit by physician Ziggy Arauz MD Work Phone: [facility] Comment on above: Sebaceous cyst of le ft eyelid (Primary Dx) Start: 12-22-2022 ambulatory [facility] ical Communication Start: 12-22-2022 Patient encounter procedure Farzana Eid Clinical Communication Start: 12-22-2022 End: 12-22-2022 Emergency department patient visit Pacheco Negron MD Work Phone: [facility] Comment on above: Acute right flank pa in (Primary Dx) Start: 12-21-2022 End: 12-21-2022 ambulatory [facility] Start: 12-21-2022 End: 12-21-2022 Subsequent hospital visit by physician Cheryl Basilio MD Work Phone: [facility] X-ray Imaging Comment on above: Right flank pain Start: 12-21-2022 End: 12-21-2022 ambulatory [facility] Start: 12-17-2022 Telephone encounter Dat Talbot RN [facility] Clinical Communication Comment on above: Advice Only Start: 12-17-2022 End: 12-17-2022 ambulatory [facility] Start: 12-13-2022 End: 12-13-2022 ambulatory [facility] Start: 12-13-2022 End: 12-13-2022 Encounter for other preprocedural examination [facility] Start: 12-12-2022 ambulatory Aure Delgado MANAGER CLIENT SERVICE - CLINICAL PROJECT LEADER Work Phone: [facility] Start: 12-11-2022 End: 12-11-2022 Subsequent hospital visit by physician Ziggy Arauz MD Work Phone: [facility] Vascular Lab Comment on above: Arrived Start: 12-11-2022 End: 12-11-2022 ambulatory [facility] Start: 12-10-2022 End: 12-10-2022 ambulatory [facility] Start: 12-07-2022 End: 12-07-2022 Emergency department patient visit Yolanda Patel Work Phone: [facility] EMERGENCY [facility] Comment on above: Deep vein thrombosis (DVT) of proximal vein of left lower extremity, unspecified chronicity (HCC) (Primary Dx) Start: 12-03-2022 Orders Only Cheryl centeno MD Work Phone: [facility] Comment on above: Acute deep vein thro mbosis (DVT) of left lower extremity, unspecified vein (HCC) (Primary Dx) Start: 11-15-2022 ambulatory Dat Talbot RN [facility] Clinical Communication Start: 11-15-2022 [facility] Start: 11-15-2022 Telephone encounter Farzana Samaniego RN [facility] Clinical Communication Comment on above: Results (/) Start: 11-14-2022 End: 11-14-2022 Subsequent hospital visit by physician Cheryl Basilio MD Work Phone: [facility] Vascular Lab Comment on above: Acute deep vein thro mbosis (DVT) of left lower extremity, unspecified vein (HCC) Start: 11-14-2022 ambulatory Natacha Barry RN [facility] Clinical Communication Start: 11-14-2022 Patient encounter procedure Dasia F ericanicole RN [facility] Clinical Communication Start: 11-14-2022 End: 11-14-2022 Office outpatient visit 15 minutes Cheryl Basilio MD Work Phone: [facility] Comment on above: Acute deep vein thro mbosis (DVT) of left lower extremity, unspecified vein (HCC) (Primary Dx) Start: 11-13-2022 ambulatory Khalida Currie RN [facility] Healthcare ITical Communication Start: 11-13-2022 Patient encounter procedure Khalida herring RN [facility] Clinical Communication Start: 10-31-2022 Telephone encounter Cheryl Basilio MD Work Phone: [facility] Comment on above: Med Refill Start: 10-15-2022 Orders Only Cheryl centeno MD Work Phone: [facility] Comment on above: ER Follow-up Start: 10-12-2022 End: 10-16-2022 Emergency department patient visit Natacha Frankel Work Phone: [facility] 4S TELEMETRY Comment on above: Acute deep vein thro mbosis (DVT) of left lower extremity, unspecified vein (HCC) (Primary Dx); Ambulatory dysfunction Start: 10-12-2022 End: 10-12-2022 Subsequent hospital visit by physician [facility] Us Exam Room [address] [facility] US Comment on above: Arrived Start: 10-12-2022 End: 10-12-2022 Emergency department patient visit Pacheco Negron MD Work Phone: [facility] ED Comment on above: Leg swelling (Primar y Dx); Acute deep vein thrombosis (DVT) of left lower extremity, unspecified vein (HCC) Start: 10-11-2022 End: 10-11-2022 Office outpatient new 30 minutes Cheryl Basilio MD Work Phone: [facility] Comment on above: Recurrent UTI (Prima ry Dx); Benign prostatic hyperplasia without lower urinary tract symptoms Start: 10-10-2022 End: 10-10-2022 Office outpatient new 45 minutes Donna Roberts DO Work Phone: [facility] Comment on above: Pleural effusion (Pr imary Dx); History of tobacco abuse; Centrilobular emphysema (HCC) Start: 10-10-2022 End: 10-10-2022 Subsequent hospital visit by physician Won Smith MANAGER CLIENT SERVICE - CLINICAL PROJECT LEADER Work Phone: [facility] Comment on above: Complex renal cyst Start: 09-27-2022 ambulatory NONE PHYSICIAN Facility :R Start: 09-18-2022 End: 09-18-2022 Subsequent hospital visit by physician Leanne Perales MD Work Phone: [facility] CT Comment on above: No Show Start: 09-16-2022 Telephone encounter Chana kunz MANAGER CLIENT SERVICE - CLINICAL PROJECT LEADER Work Phone: [facility] Comment on above: Results Start: 09-13-2022 End: 09-13-2022 Office outpatient visit 15 minutes Chana Brwon MANAGER CLIENT SERVICE - CLINICAL PROJECT LEADER Work Phone: [facility] Comment on above: Urinary tract infect ion symptoms (Primary Dx) Start: 08-22-2022 Refill Leanne Perales MD Work Phone: [facility] Start: 08-20-2022 Orders Only Tayler Rivas MANAGER CLIENT SERVICE - CLINICAL PROJECT LEADER Work Phone: [facility] Start: 08-17-2022 End: 08-17-2022 Office outpatient visit 15 minutes Tayler Rivas MANAGER CLIENT SERVICE - CLINICAL PROJECT LEADER Work Phone: [facility] Comment on above: Recurrent UTI (Prima ry Dx); Dysuria; Urinary frequency; Urinary urgency; Chronic right-sided low back pain without sciatica; Leukocytes in urine; Hematuria, unspecified type Start: 07-04-2022 Refill Leanne Perales MD Work Phone: 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 Comment on above: Auth for CT Start: 03-13-2022 Refill Leanne Perales MD Work Phone: [facility] Start: 03-06-2022 End: 03-06-2022 Office outpatient visit 25 minutes Leanne Perales MD Work Phone: [facility] Comment on above: Acute right-sided lo w back pain without sciatica (Primary Dx); Right flank pain Start: 02-27-2022 End: 02-27-2022 Office outpatient visit 15 minutes Chana Bridenthal MANAGER CLIENT SERVICE - CLINICAL PROJECT LEADER Work Phone: [facility] Comment on above: Acute cystitis witho ut hematuria (Primary Dx); Flank pain; Essential hypertension, benign Start: 02-27-2022 End: 02-27-2022 Office outpatient visit 25 minutes Chana Bridenthal MANAGER CLIENT SERVICE - CLINICAL PROJECT LEADER Work Phone: [facility] Comment on above: Acute cystitis witho ut hematuria (Primary Dx); Flank pain; Essential hypertension, benign Start: 12-15-2021 Transcribe Orders Won kramer MANAGER CLIENT SERVICE - CLINICAL PROJECT LEADER Work Phone: [facility] Clinical Communication Comment on above: Complex renal cyst ( Primary Dx) Start: 12-07-2021 [facility] Start: 12-01-2021 End: 12-06-2021 Evaluation and management of inpatient UNKNOWN PROVIDER [facility] Start: 12-01-2021 End: 12-06-2021 Evaluation and management of inpatient Barry Leon MD Work Phone: [facility] MED SURG Comment on above: Flank pain (Primary Dx); Acute right flank pain; Chills Start: 11-27-2021 End: 11-28-2021 Emergency department patient visit UNKNOWN PROVIDER [facility] Start: 11-27-2021 End: 11-28-2021 Emergency department patient visit Tc Spence MD Work Phone: [facility] Comment on above: Flank pain (Primary Dx) Start: 10-18-2021 [facility] Start: 10-18-2021 End: 10-18-2021 Subsequent hospital visit by physician Rocio Ruiz MD Work Phone: [facility] Comment on above: Macroprolactinoma (H CC) Start: 04-12-2021 [facility] Start: 12-26-2018 End: 12-26-2018 Subsequent hospital visit by physician Hema Gomez Work Phone: [facility] Laboratory Comment on above: Primary hyperparathy roidism [...] tomography of abdomen and pelvis with contrast GREASE BUFFER-C Sanjana Hale Work Phone: Start: 06-18-2023 US urinary tract GREASE BUFFER-C Dusty Hale Work Phone: Start: 06-06-[address] Ryan Ceja Work Phone: Start: 05-28-[address] Ryan Ceja Work Phone: Start: 05-09-[address] Rayn Ceja Work Phone: Start: 02-07-2023 Computed tomography [...] above: Performed By: #### L [id number] #### Personal Development Mentor: LENORE ESCOBAR ([id number]) [facility] ([facility]) [address] [place] [address] Start: 12-11-2022 Dup-scan aorta ivc i liac [...] et rgnt non-auto w/o micrscp Chana Bridenthal MANAGER CLIENT SERVICE - CLINICAL PROJECT LEADER Work Phone: Start: 08-17-2022 Urnls dip stick/tabl et rgnt non-auto w/o micrscp Tayler Rivas MANAGER CLIENT SERVICE - CLINICAL PROJECT LEADER Work Phone: Start: 08-17-2022 Culture bacterial quanttative colony count urine Tayler Rivas MANAGER CLIENT SERVICE - CLINICAL PROJECT LEADER Work Phone: Start: 05-17-2022 Urnls dip stick/tabl [...] TO MG FOR LOW K Kiara Antwon [facility] Work Phone: Start: 12-06-2021 Blood count complete auto&auto difrntl wbc Kiara Kapoor [facility] Work Phone: Start: 12-05-2021 [address]IC METABOLIC PANE L W/ REFLEX TO MG FOR LOW K Kiara Antwon [facility] Work Phone: Start: 12-05-2021 Blood count complete auto&auto difrntl wbc Kiara Kapoor [facility] Work Phone: Start: 12-05-2021 Manual Differential panel - Blood Kiara Kapoor [facility] Work Phone: Start: 12-04-2021 Urnls dip stick/tabl et rgnt auto w/o microscopy Kiara Kapoor [facility] Work Phone: Start: 12-04-2021 Us retroperitoneal r eal time w/image limited Kiara Kapoor [facility] Work Phone: Start: 12-04-2021 BASIC METABOLIC [...] 01-31-2030 Screening for malignant neoplasm of colon [facility] Start: 02-07-2027 Lipid panel Lipid Panel [facility] Start: 08-20-2026 DTaP/Tdap/Td vaccine (2 - Td or Tdap) DTaP/Tdap/Td vaccine (2 - Td or Tdap) [facility] Start: 08-20-2026 DTaP/Tdap/Td vaccine (2 - Td) DTaP/Tdap/Td vaccine (2 - Td) [place] Start: 08-20-2026 DTaP/Tdap/Td Vaccines (2 - Td or Tdap) DTaP/Tdap/Td Vaccines (2 - Td or Tdap) [facility] Start: 11-09-2024 X-ray of lumbosacral spine L/S Spine Bending Flex/Ext [facility] Start: 11-09-2024 XR Spine Lumbar and Sacrum Views [facility] Start: 10-03-2024 End: 10-03-2024 [facility] Start: 08-02-2024 [facility] Start: 07-30-2024 Thyroid stimulating hormone measurement TSH Level [facility] Start: 05-28-2024 Urine culture Urine Culture [facility] Start: 05-28-2024 [facility] Start: 05-14-2024 Patient referral [facility] Work Phone: Start: 01-04-2024 Thyroid stimulating hormone [...] [facility] Start: 05-28-2023 Patient referral [facility] Work Phone: Start: 04-12-2023 End: 04-12-2023 Patient encounter procedure 04/12/2023 8:00 AM EST Office Visit [facility] [address] [facility] [address] [place] [address] Ziggy Frazier MD [address] [place] [address] [facility] Start: 02-20-2023 Patient referral [facility] Work Phone: Start: 02-14-2023 End: 02-14-2023 Patient encounter procedure 02/14/2023 7:30 AM EST Office Visit [facility] [address] [facility] [place] [address] Leanne Perales MD [address] [facility] [place] [address] [facility] Start: 02-13-2023 Patient discharge [facility] Start: 02-13-2023 [facility] Start: 02-13-2023 Care planning and problem solving actions [facility] Start: 02-12-2023 [facility] Start: 02-12-2023 Following clinical pathway protocol [facility] Start: 02-12-2023 Ambulation without limitation [facility] Start: 02-12-2023 Assessment of risk of venous thromboembolism [facility] Start: 02-12-2023 Bedrest [facility] Start: 02-12-2023 Incentive spirometry [facility] Start: 02-12-2023 Insertion of catheter into peripheral vein [facility] Start: 02-12-2023 Measuring intake and output [facility] Start: 02-12-2023 Notification of physician [facility] Start: 02-12-2023 Oxygen therapy [facility] Start: 02-12-2023 Providing care according to standard [facility] Start: 02-12-2023 Provision of activity privileges [facility] Start: 02-12-2023 Pulse taking [facility] Start: 02-12-2023 Taking patient vital signs [facility] Start: 02-12-2023 End: 02-12-2023 [facility] Start: 02-12-2023 Admission procedure [facility] Start: 02-12-2023 Thrombectomy (Bilateral) Thrombectomy (Bilateral) [facility] Start: 02-06-2023 COVID-19 Vaccine (4 [...] with patient 01/30/2023 10:00 AM EST Telemedicine [facility] [address] [place] [address] Donna Roberts DO [address] [place] [address] [facility] Start: 01-22-2023 End: 01-22-2023 Patient encounter procedure 01/22/2023 8:30 AM EST Office Visit [facility] [address] [place] [phone] Lauren Borja DO [address] [place] [address] [facility] Start: 01-07-2023 End: 01-07-2023 Patient encounter procedure 01/07/2023 2:45 PM EST Office Visit [facility] [address] [place] [phone] Ziggy Arauz MD [address] [place] [address] [facility] Start: 01-04-2023 End: 01-05-2024 Hemoglobin [Mass/volume] in Blood Hemoglobin and hematocrit, blood Lab Routine Hypogonadism in male Expected: 01/04/2023 (Approximate), Expires: 01/05/[address] [facility] [facility] Work Phone: Comment on above: Expected: [...] Start: 01-02-2023 End: 01-02-2023 Patient encounter procedure [facility] Start: 01-02-2023 End: 01-02-2023 Patient encounter procedure 01/02/2023 8:30 AM EST Office Visit [facility] [address] [place] [address] Ziggy Arauz MD [address] [place], [place] [id number] [facility] Start: 12-25-2022 End: 12-25-2022 Admission to same day surgery center 12/25/2022 10:30 AM EDT - 12/25/2022 1:00 PM EDT Surgery [facility] MAIN OR [address] [place] [phone] Ziggy Arauz MD [address] [place] [address] LEFT ILIOFEMORAL DEEP VEIN THROMBOSIS, THROMBECTOMY AND STENTING [23360 (CPT )] [facility] Comment on above: LEFT ILIOFEMORAL DEEP VEIN THROMBOSIS, T HROMBECTOMY AND STENTING [77839 (CPT )] Start: 12-25-2022 End: 12-25-2022 Anesthesia consultation 12/25/2022 10:30 AM EDT Anesthesia Event [facility] MA[facility] OR [address] [place] [phone] Carissa Romero, MANAGER CLIENT SERVICE - CLINICAL PROJECT LEADER [address] [place] [address] [facility] Start: 12-25-2022 End: 12-25-2022 [...] Hospital Encounter [facility] OR [address] [place] [phone] Ziggy Arauz MD [address] [place] [address] [facility] MAIN OR Start: 12-21-2022 End: 12-21-2022 Admission to same day surgery center 12/21/2022 1:30 PM EDT - 12/21/2022 3:00 PM EDT Surgery [facility] MA[facility] OR [address] [facility] [place] [phone] Ziggy Arauz MD [address] [place] [address] LEFT ILIOFEMORAL DEEP VEIN THROMBOSIS, THROMBECTOMY AND STENTING [59922 (CPT )] [facility] MAIN OR Comment on above: LEFT ILIOFEMORAL DEEP VEIN THROMBOSIS, T HROMBECTOMY AND STENTING [13888 (CPT )] Start: 12-21-2022 End: 12-21-2022 Open/perq [...] Hospital Encounter [facility] OR [address] [facility] [place] [phone] Ziggy Arauz MD [address] [phone] [facility] MAIN OR Start: 12-13-2022 End: 12-13-2022 Admission to establishment 12/13/2022 10:00 AM EDT Pre-Admission Testing [facility] Pre-Admit Testing [address] [place] [phone] [facility] Pre-Admit Testing Start: 12-13-2022 End: 12-13-2022 Patient encounter procedure 12/13/2022 Office Visit Urology Won Smith, MANAGER CLIENT SERVICE - CLINICAL PROJECT LEADER [address] [place] [address] [facility] Start: 12-12-2022 End: 12-12-2022 Patient encounter procedure 12/12/2022 9:00 AM EDT Office Visit [facility] [address] [place] [phone] Tayler Salmon, MANAGER CLIENT SERVICE - GREASE BUFFER [address] [place] [address] [facility] Start: 12-11-2022 End: 12-11-2022 Patient encounter procedure 12/11/2022 9:20 AM EDT Procedure Visit [facility] [address] [place] [address] Garrison Garza MD [address] [place] [address] [facility] Start: 12-10-2022 End: 12-10-2022 Patient encounter procedure 12/10/2022 2:15 PM EDT Office Visit [facility] [address] [place] [phone] Ziggy Arauz MD [address] [place] [address] [facility] Start: 12-04-2022 End: 12-04-2022 Patient encounter procedure [facility] [address] [facility] Start: 12-02-2022 Lipid panel Lipids [facility] Start: 12-02-2022 Thyroid stimulating hormone measurement TSH Level [facility] Start: 11-14-2022 End: 11-14-2022 Patient encounter procedure 11/14/2022 11:00 AM EDT Office Visit [facility] [address] [facility] [address] [place] [phone] Cheryl Basilio MD [address] [facility] [address] [place] [address] [facility] Start: 10-26-2022 COVID-19 Vaccine () COVID-19 Vaccine () [facility] Start: 10-26-2022 Influenza vaccination Influenza Vaccine (#1) [facility] Start: 10-24-2022 End: 10-24-2022 Patient encounter procedure 10/24/2022 11:20 AM EDT Office Visit [facility] [address] [phone] Cheryl Basilio MD [address] [address] [facility] Start: 10-11-2022 End: 10-12-2023 Bacteria [...] procedure 10/11/2022 8:20 AM EDT Office Visit [facility] [address] [facility] [address] [place] [address] Cheryl Basilio MD [address] [place] [address] [address] [place] [address] [facility] Start: 10-10-2022 End: 10-11-2023 Complete PFT pre and post bronchodilator Complete PFT pre and post bronchodilator PFT Routine History of tobacco abuse Centrilobular emphysema (HCC) Expected: 10/10/2022 (Approximate), Expires: 10/11/2023 [place] Work Phone: Comment on above: Expected: 10/10/2022 (Approximate), Expi res: 10/11/2023 Start: 10-10-2022 End: 10-11-2023 CT Chest for screening WO contrast CT lung screening low dose Imaging Routine History of tobacco abuse Centrilobular emphysema (HCC) Pleural effusion Expected: 10/10/2022, Expires: 10/11/[address] [facility] [employer] Comment on above: Expected: 10/10/2022, Expires: Start: 09-18-2022 Subsequent hospital visit by physician 09/18/2022 8:15 AM EDT Hospital Encounter [facility] [address] [place] [address] Leanne Perales MD [address] [place] [address], [place] [address] [facility] [address] Start: 09-13-2022 End: 09-14-2023 Bacteria identified in Urine by Culture Urine culture (clean catch) Microbiology Routine Urinary tract infection symptoms Expected: 09/13/2022 (Approximate), Expires: 09/14/2023 [place] Work Phone: Comment on above: Expected: 09/13/2022 (Approximate), Expi res: 09/14/2023 Start: 08-17-2022 End: 08-18-2023 Bacteria identified in Urine by Culture Urine culture (clean catch) Microbiology Routine Dysuria Urinary frequency Urinary urgency Leukocytes in urine Hematuria, unspecified type Recurrent UTI Expected: 08/17/2022 (Approximate), Expires: 08/18/2023 [facility] Work Phone: Comment on above: Expected: 08/17/2022 (Approximate), Expi res: 08/18/2023 Start: 08-06-2022 End: 08-06-2022 Patient encounter procedure 08/06/2022 Office Visit Family Medicine Leanne Perales MD [address] [place] [address], [facility] [place], [place] [phone] [facility] Start: 08-03-2022 Depression Screen Depression Screen [facility] Start: 08-03-2022 Lipid panel Lipids [facility] Start: 06-13-2022 End: 06-13-2022 Patient encounter procedure 06/13/2022 Office Visit Endocrinology Rocio Ruiz MD [address] [place] [phone] [facility] Start: 05-17-2022 End: 05-18-2023 Bacteria identified in Urine by Culture Urine culture Microbiology Routine Right flank pain Expected: 05/17/2022 (Approximate), Expires: 05/18/2023 [facility] Work Phone: Comment on above: Expected: 05/17/2022 (Approximate), Expi res: 05/18/2023 Start: 03-06-2022 End: 03-06-2023 CT Lumbar spine WO contrast CT lumbar spine wo IV contrast Imaging Routine Right flank pain Acute right-sided low back pain without sciatica Expected: 03/06/2022, Expires: 03/06/[address] [facility] Work Phone: Comment on above: Expected: 03/06/2022, Expires: Start: 03-05-2022 End: 03-05-2022 Patient encounter procedure 03/05/2022 Office Visit Endocrinology Rocio Calix MD [address] [facility] [address] [place] [id number] Endocrinology [facility] Start: 02-06-2022 End: 02-06-2022 Patient encounter procedure 02/06/2022 Office Visit Family Medicine Leanne Perales MD [address] [facility], [place] [address] [facility] Start: 12-15-2021 End: 12-15-2022 US Retroperitoneum US retroperitoneum Imaging Routine Complex renal cyst Expected: 12/15/2021, Expires: 12/15/2022 [facility] Work Phone: Comment on above: Expected: 12/15/2021, Expires: 3 Start: 12-07-2021 End: 12-07-2021 Patient encounter procedure 12/07/2021 Appointment Radiology Tayler Rivas, MANAGER CLIENT SERVICE - CLINICAL PROJECT LEADER [address] [place] [address] Start: 10-26-2021 Influenza vaccination Flu vaccine (#1) [facility] Start: 09-25-2021 Influenza vaccination Flu vaccine (#1) [facility] Start: 2021 RSV Immunization aged 60 or older (1 - 1-dose 60+ series) RSV Immunization aged 60 or older (1 - 1-dose 60+ series) [facility] Start: 07-11-2021 COVID-19 Vaccine (4 - Booster) COVID-19 Vaccine (4 - Booster) [facility] Start: 07-15-2019 Lipid screen Lipid screen [place], [place] Start: 07-12-2019 Colon cancer screen colonoscopy Colon cancer screen colonoscopy [place], [place] Start: 06-26-2019 Creatinine monitoring Creatinine monitoring [place], [place] Start: 06-26-2019 Potassium monitoring Potassium monitoring [place], [place] Start: 06-26-2019 TSH testing TSH testing [place] Start: 01-20-2019 End: 01-20-2019 Office Visit 01/20/2019 Office Visit Endocrinology Hema Gomez MD [address] [place] [address] [phone] Endocrinology [facility] Start: 01-09-2019 End: 01-09-2019 Office Visit 01/09/2019 Office Visit Family Medicine Leanne Perales MD [address] [facility], [place] [address] [phone] [facility] Start: 10-26-2018 Influenza vaccination Flu vaccine (#1) [place] Start: 05-26-2018 Diabetes screen Diabetes screen [facility] Start: 09-08-2011 Screening for malignant neoplasm of lung Lung Cancer Screening [facility] Start: 09-08-2011 Shingles Vaccine (1 of 2) Shingles Vaccine (1 of 2) [place], [place] Start: 2006 Screening for malignant neoplasm of colon [facility] Start: 09-08-1979 Diabetes mellitus screening [...] (HCC) 1 Occurrences starting 12/26/2018 until 12/26/2018 [place], [place] Comment on above: 1 Occurrences starting 12/26/2018 until 12/26/2018 [facility] ACTH Lab Routine Prolactin secreting pituitary adenoma (HCC) 12/26/2018 9:03 AM EDT [place] End: 12-11-2021 Basic Metabolic Panel w/ Reflex to MG Basic Metabolic Panel w/ Reflex to MG Lab Routine Daily for 1 Weeks starting 12/05/2021 until 12/11/2021, 2 completed [facility] Work Phone: Comment on above: Daily for 1 Weeks starting 12/05/2021 un til 12/11/2021, 2 completed End: 12-26-2018 Calcium, Urine Calcium, Urine Lab Routine Primary hyperparathyroidism (HCC) 1 Occurrences starting 12/26/2018 until 12/26/2018 [place] Comment on above: 1 Occurrences starting 12/26/2018 until 12/26/2018 Calcium, Urine Calcium, Urine L ab Routine Primary hyperparathyroidism (HCC) 12/26/2018 5:45 AM EDT [place] End: 12-11-2021 CBC W Auto Differential panel - Blood CBC with Auto Differential Lab Routine Daily for 1 Weeks starting 12/05/2021 until 12/11/2021, 2 completed [facility] Work Phone: Comment on above: Daily for 1 Weeks starting 12/05/2021 un til 12/11/2021, 2 completed CBC W Auto Different ial panel - Blood [facility] metabo lic 1999 panel - Serum or Plasma [facility] 1999 panel - Serum or Plasma [facility] End: 12-26-2018 Cortisol Cortisol Lab Routine Prolactin secreting pituitary adenoma (HCC) 1 Occurrences starting 12/26/2018 until 12/26/2018 [place] Comment on above: 1 Occurrences starting 12/26/2018 until 12/26/2018 Cortisol Cortisol Lab Rou rolf Prolactin secreting pituitary adenoma (HCC) 12/26/2018 9:03 AM EDT [place] CT Abdomen and Pelvi s WO and W contrast IV [facility] Culture, Blood 2 Culture, Blood 2 Microbiology STAT 12/01/2021 10:28 AM EDT [facility] Work Phone: End: 11-27-2021 Culture, Urine [facility] Work Phone: Comment on above: One Time for 1 Occurrences starting 04/2021 until 11/27/2021 Doppler ultrasonogra phy of aorta [facility] Electrocardiographic procedure [facility] End: 10-13-2022 Factor 5 [facility] Work Phone: Comment on above: Once (Lab) for 1 Occurrences starting until 10/13/2022 Lipid 1996 panel - S suhail or Plasma [facility] Lipid 1996 panel - S suhail or Plasma [facility] Microscopic examinat ion of blood, culture Culture, Blood Microbiology STAT 12/01/2021 11:05 AM EDT [employer] Work Phone: End: 09-16-2023 MR Pituitary and Sella turcica WO and W contrast IV [place] Work Phone: Comment on above: Once for 1 Occurrences starting 09/16/19 until 09/16/2023 End: 10-18-2021 MRI BRAIN W WO CONTRAST [employer] Work Phone: Comment on above: Once for 1 Occurrences starting 10/19/19 until 10/18/2021 OUTSIDE PROCEDURE SCAN OUTSIDE P ROCEDURE SCAN Procedures Ordered: 09/17/2022 [facility] Comment on above: Ordered: 09/17/2022 OUTSIDE PROCEDURE SCAN OUTSIDE P ROCEDURE SCAN Procedures Ordered: 10/09/[address] [facility] Comment on above: Ordered: 10/09/2022 Oxygen therapy [[facility] Data Set] Initiate Oxygen Therapy Protocol Respiratory Care Routine As Needed until discontinued starting 12/01/2021 [employer] Work Phone: Comment on above: As Needed until discontinued starting Patient Education [facility] Work Phone: Patient referral [facility] Work Phone: Prolactin measurement [facility] Prostate specific an tigen measurement [facility] Prostate specific an tigen measurement [facility] T4 free measurement [facility] Testosterone measurement [facility] Thyroid stimulating hormone measurement [facility] Thyroid stimulating hormone measurement [facility] End: 10-10-2022 US Retroperitoneum [facility] Work Phone: Comment on above: Once for 1 Occurrences starting 10/11/19 until 10/10/2022 Vitamin D, 25-hydrox y measurement [facility] XR Spine Lumbar and Sacrum GE 4 Views [facility] Immunizations Immunization Date Immunization Notes Care Provider Fa [facility] 12-14-2021 influenza, injectabl e, quadrivalent, preservative free Leanne Perales MD Work Phone: [facility] 12-14-2021 influenza virus vaccine, unspecified formulation Chana Brown MANAGER CLIENT SERVICE - CLINICAL PROJECT LEADER Work Phone: [facility] 08-10-2021 Pneumococcal conjuga te PCV20, PF (Prevnar 20) Rocio Ruiz MD Work Phone: [facility] Work Phone: 08-03-2021 zoster vaccine recombinant Rocio Ruiz MD Work Phone: [facility] Work Phone: 03-13-2021 COVID-19, MODERNA BL UE border, Primary or Immunocompromised, (age 12y+), IM, 100 mcg/0.5mL Rocio Ruiz MD Work Phone: [facility] Work Phone: 01-11-2021 influenza, injectabl e, quadrivalent, preservative free Rocio Ruiz MD Work Phone: [facility] 01-11-2021 zoster vaccine recombinant Rocio Ruiz MD Work Phone: [facility] Work Phone: 07-08-2020 COVID-19, MODERNA BL UE border, Primary or Immunocompromised, (age 12y+), IM, 100 mcg/0.5mL Rocio Ruiz MD Work Phone: [facility] Work Phone: 06-17-2020 COVID-19, MODERNA BL UE border, Primary or Immunocompromised, (age 12y+), IM, 100 mcg/0.5mL Rocio Ruiz MD Work Phone: [facility] Work Phone: 01-11-2020 influenza, injectabl e, quadrivalent, preservative free Rocio Ruiz MD Work Phone: [facility] Work Phone: 01-09-2019 influenza, injectabl e, quadrivalent, preservative free Rocio Ruiz MD Work Phone: [facility] Work Phone: 01-06-2018 influenza, injectabl e, quadrivalent, preservative free [facility] 08-20-2016 pneumococcal polysaccharide vaccine, [facility]ent [facility] [place] 08-20-2016 tetanus toxoid, redu jenny diphtheria toxoid, and acellular pertussis vaccine, adsorbed [facility] [place] Payers Date Payer Category Payer Self-pay 2021 Unknown 2021 Unknown [id number] 2014 Private Health Insurance [facility] xxxxxxxxx 2014-[facility] [phone] [address] [place] [address] xxxxxxxxx [id number]. [id number] 1961 Unknown [id number] 2.16.840.1.512848.3.579.2. 8 1961 Unknown [id number] 2.16.840.1.556393.3.579.2. 1961 Unknown [id number] 2.16.840.1.489779.3.579.2. 668 1961 Unknown [id number] 2.16.840.1.570049.3.579.2. 8 1961 Unknown [id number] 2.16.840.1.446248.3.579.2. 668 1961 Unknown [id number] 2.16.840.1.160049.3.579.2. 627 1961 Unknown [id number] 2.16.840.1.589901.3.579.2. 627 1961 Unknown [id number] 2.16.840.1.684412.3.579.2. 627 Private Health Insurance [facility] [id number] Unknown [id number] 2.16.840.1.388186.3.579.2. 462 Unknown [id number] 2.16.840.1.003715.3.579.2. 462 Unknown [id number] 2.16.840.1.890638.3.579.2. 462 Unknown [id number] 2.16.840.1.915490.3.579.2. 462 Unknown [id number] 2..840.1.936058.3.579.2. 462 Unknown [id number] 2.16.840.1.596023.3.579.2. 462 Unknown [id number] 2.16.840.1.904858.3.579.2. 462 Unknown [id number] 2.16.840.1.794238.3.579.2. 462 Unknown [id number] 2.16.840.1.686857.3.579.2. 462 Unknown [id number] 2.16.840.1.251310.3.579.2. 462 Unknown [id number] 2.16.840.1.259173.3.579.2. 462 Unknown [id number] 2.16.840.1.978900.3.579.2. 462 Unknown [id number] 2.16.840.1.081517.3.579.2. 462 Unknown [id number] 2.16.840.1.361245.3.579.2. 462 Unknown [id number] 2.16.840.1.383411.3.579.2. 462 Unknown [id number] 2.16.840.1.690670.3.579.2. 462 Unknown [id number] 2.16.840.1.228737.3.579.2. 462 Unknown [id number] 2.16.840.1.961367.3.579.2. 462 Unknown [id number] 2.16.840.1.460782.3.579.2. 462 Unknown [id number] 2.16.840.1.236439.3.579.2. 462 Social History Date Type Detail Facility Start: 08-08-2018 End: 10-03-2024 Tobacco smoking status NHIS Current every day smoker [place] Start: 03-28-1982 End: 03-28-2022 History of tobacco use Cigarette [place]oker [place] Start: 08-08-2018 End: 03-06-2022 Cigarettes smoked current (pack per day) - Reported [place] Start: 08-08-2018 End: 10-12-2022 Alcohol intake No [place] Sex Assigned At Not on file [place] Start: 01-09-2019 End: 01-02-2023 Tobacco use and exposure Smokeless tobacco non-user [employer] Work Phone: Start: 2021 End: 03-06-2022 Alcohol intake Current non-drinker of alcohol (finding) [employer] Work Phone: Start: 07-11-2020 End: 02-06-2022 History SDOH Alcohol Frequency 2 [employer] Work Phone: Start: 07-11-2020 End: 02-06-2022 History SDOH Alcohol Std Drinks 1 [employer] Work Phone: Start: 12-26-2019 History SDOH Alcohol Comment rarely [employer] Work Phone: Start: 01-09-2019 History SDOH Physical Activity DPW 0 [employer] Work Phone: Start: 08-03-2021 End: 02-06-2022 History SDOH Financial 5 [employer] Work Phone: Start: 1960 Sex Assigned At Male [facility] Start: 09-16-2021 End: 11-14-2022 Exposure to SARS-CoV-2 (event) Not sure [facility] How hard is it for y ou to pay for the very basics like food, housing, medical care, and heating Not hard at all [facility] (I/We) worried wheth er (my/our) food would run out before (I/we) got money to buy more. Never true [facility] Start: 12-14-2021 Gender identity Identifies as male gender (finding) [facility] Start: 12-14-2021 Sexual orientation Heterosexual (finding) [facility] Start: 09-14-2022 End: 05-28-2024 Tobacco smoking status ORIS Occasional tobacco smoker [facility] How often to you hav e a drink containing alcohol? Monthly or less [facility] How many standard drinks containing alcohol do you have on a typical day? 1 or [address] [facility] How often do you hav e 6 or more drinks on 1 occasion? Never [facility] Start: 10-10-2022 End: 01-02-2023 Tobacco smoking status ORIS Ex-smoker [facility] Start: 03-28-1982 End: 03-28-2022 History of tobacco use Current smoker [facility] Start: 10-10-2022 End: 07-31-2023 Alcohol intake Current drinker of alcohol (finding) [facility] Within the last year , have you been afraid of your partner or ex-partner? No [facility] Start: 12-10-2022 Alcohol Comment occassionally [facility] Start: 02-06-2023 End: 06-06-2023 Tobacco smoking status [facility] Unknown if ever smoked [facility] Start: 12-24-2023 Tobacco smoking status Heavy tobacco smoker (finding) [facility] Sexual Orientation Maxine phillips [facility] Start: 09-27-2022 End: 06-02-2024 Sex Male (finding) [facility] Medical Equipment Procedure Code Equipment Code Equipment Origin al Text Equipment Identifier Dates Iliofemoral vein stent ()[id number] [id number] [facility] Start: 02-12-2023 Iliofemoral vein stent ()[id number] [id number] [facility] Start: 02-12-2023 Goals Date Patient Goal Desired [...] Functional status Activity Abili ty Standby Assist [facility] Work Phone: 02-13-2023 Functional status Ambulates [facility] Work Phone: Mental Status Date Assessment Result Facility 02-13-2023 Cognitive function Level Of Cons ciousness Awake;Alert;Appropriate;Follow s Commands [facility] Work Phone: 02-13-2023 Cognitive function Voice/Name [facility] Work Phone: Clinical Notes 11-27-2021 to 10-12-2024 Note Date & Type Note Facility 10-12-2024 Radiology Diagnostic study note [facility] Imaging Services [address] [place], [place] [id number] L/S Spine Min 4 Views MR#: [id number] Acct: [id number] Name: CORRIE QUEEN Rep #: [id number] : 1960 M 64 From: Vernon Acuña MD PCP: Dr. Justice Bailey, DO Status: RE G CLI Study:L/S Spine Min 4 Views Date of Exam: 10/09/24 Exam# [id number] Ordering Dr: Xiomara Johnston [employer] PROCEDURE: L/S SPINE MIN 4 VIEWS 10/09/2024 [...] and spondylosis. Facet joint osteoarthritis. Reading Location: [facility] CC: RUBI Johnston; Dr. Justice Bailey, ~ [employer] Man: Signed [facility] 10-03-2024 Radiology Diagnostic study note [facility] Imaging Services [address] [place] [address] Abdomen/Pelvis W IV Cont ONLY MR#: [id number] Acct: [id number] Name: CORRIE QUEEN Rep #: [id number] : 1960 M 64 From: Jairo Elmore MD PCP: Dr. Justice Bailey, Status: RE G ER Study:Abdomen/Pelvis W IV Cont ONLY Date of E xam: 10/03/24 Exam# [id number] Ordering Dr: Kelvin Luque MD PROCEDURE: ABDOMEN/PELVIS [...] abnormalities. Liver steatosis and hepatomegaly. Reading Location: [facility] CC: Dr. Justice Bailey DO; Dr. Ludy Luque MD ~ [employer] Man: Signed [facility] 08-11-2024 Evaluation note Diagnosis Onset Date Resolution Sinusitis acute August 11 3:23pm Musculoskeletal back pain inactive October 08, 2024 8:45am Degenerative disc disease (DDD) of lumbar region with discogenic back pain acute Septem beckie 2024 9:19am Lumbar radiculopathy acute Sept ember 2024 9:19am [facility] Work Phone: 1(502) 469-151906-17-2025 [facility] [place], [place] [address] OFFICE VISIT Date of Service: 08/11/24 MR#: [id number] Acct: [id number] Name: CORRIE QUEEN Rep #: [id number] : 1960 Provider: Dr. Sorin Bailey DO Age/Sex: 63/M Location: [facility] Status: Signed Intake Vital Signs 08/02/24 08:47 [...] RIGHT Chief Complaint: eyes pressure and congestion Superintendent Distribution Required: No Accompanied by: Self Is patient [...] him on amoxicillin. He is organizing a [employer] [place] run as a [employer] event Saturday and he would like to [...] Cosigner Signature: Date (if applicable) CC: ~ [facility]06-17-2025 Progress note Author Justice Bailey [facility] Note Date/Time August 11, 2024 3:57 pm [facility] [address] [place] [address] [place] [address] OFFICE VISIT Date of Service: 08/11/24 MR#: [id number] Acct: [id number] Name: CORRIE QUEEN Rep #: [id number] : 1960 Provider: Dr. Sorin Bailey, Age/Sex: 63/M Location: [facility] Status: Signed Intake Vital Signs 08/02/24 08:47 [...] RIGHT Chief Complaint: eyes pressure and congestion Superintendent Distribution Required: No Accompanied by: Self Is patient [...] is organizing a motorcycle run as a [employer] event Saturday and he would like to [...] Cosigner Signature: Date (if applicable) CC: ~ [facility] Work Phone: 1(865) 859-509406-08-2025 Radiology Diagnostic study note [facility] Imaging Services [address] [place] [address] Abdomen/Pelvis without Cont MR#: [id number] Acct: [id number] Name: CORRIE QUEEN Rep #: [id number] : 1960 M 63 From: Bernadette Ovalles MD PCP: Dr. Justice Bailey DO Status: RE G ER Study:Abdomen/Pelvis without Cont Date of Exa m: 08/02/24 Exam# [id number] Ordering Dr: Karine Hawkins DO PROCEDURE: ABDOMEN/PELVIS [...] Bailey, DO; Dr. 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 June 8:13am Pituitary macroadenoma chronic Ma y 2024 8:13am Smoker chronic July 17, 2024 8:13am Sinusitis acute August 11 3:23pm [facility] Work Phone: 1(648) 484-285205-23-2025 Evaluation note* Diagnosis Onset Date Resolution Status Admit Date Hypercalcemia chronic July 17, 2 025 8:13am Hypogonadism 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 June 8:13am 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 June 8:13am Pituitary macroadenoma chronic Ma y 2024 8:13am Smoker chronic July 17, 2024 8:13am Sinusitis acute August 11 3:23pm Musculoskeletal back pain acute October 08, 2024 8:45am [facility] Work Phone: 1(119) 603-212905-23-2025 Evaluation note* Diagnosis Onset Date Resolution Status Admit Date Hypercalcemia chronic July 17, 2 025 8:13am Hypogonadism 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 June 8:13am 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 June 8:13am Pituitary macroadenoma chronic Ma y 2024 8:13am Smoker chronic July 17, 2024 8:13am Sinusitis acute August 11 3:23pm Musculoskeletal back pain inactive October 08, 2024 8:45am [facility] Work Phone: 1(259) 237-867504-03-2025 Evaluation note* Diagnosis Onset Date Resolution Status Admit Date Strain of lumbar region acute A pri2024 12:52pm Hypercalcemia chronic July 17, 2 025 8:13am Hypogonadism 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 June 8:13am 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 June 8:13am Pituitary macroadenoma chronic Ma y 2024 8:13am Smoker chronic July 17, 2024 8:13am [facility] Work Phone: 1(537) 152-852904-03-2025 Evaluation note* Diagnosis Onset Date Resolution Status Admit Date Strain of lumbar region acute A pri2024 12:52pm Hypercalcemia chronic July 17, 2 025 8:13am Hypogonadism 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 June 8:13am 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 June 8:13am Pituitary macroadenoma chronic Ma y 2024 8:13am Smoker chronic July 17, 2024 8:13am Sinusitis acute August 11 3:23pm [facility] Work Phone: 1(412) 718-595802-17-2025 Chief complaint+Reason for visit Narrative * Chief [...] 17, 2024 8:13a m Hypothyroidism due to Stalney's thyroi ditis July 17, 2024 8:13am Pituitary macroadenoma July 17, 2024 8: 13am Smoker July 17, 2024 8:13a m [facility] Work Phone: 1(667) 240-158802-17-2025 Chief complaint+Reason for visit Narrative * Chief [...] m Sinusitis August 11, 2024 3:23 pm [facility] Work Phone: 1(771) 394-646812-31-2024 Evaluation note* Diagnosis Onset Date Resolution Status [...] lumbar region acute A pril 2024 12:52pm [facility] Work Phone: 1([phone]) 149-917006-06-2024 Telephone encounter Note* Telephone Encounter - Janette Calderon - 08/01/2023 4:13 PM EDT Message released to patient as written. Patient's further questions if applicable: Patient voiced understanding. Stated he will pick his medication up tomorrow. Please have clinical team call patient to schedule to have testosterone levelschecked. Were all questions from office addressed or relayed to the patient from encounter: Yes [facility]90-[facility]-7199 Miscellaneous Notes* Telephone Encounter - Janette Calderon [...] testosterone treatment documented in this [facility] - ColumbusOzswiz73-72-0503 Telephone encounter Note* Telephone Encounter - Rocio [...] 2 months after starting testosterone treatment [facility] HospitalElgmzc90-80-0005 History of Present illness Narrative* Rocio Ruiz MD - 07/31/2023 9:20 AM EDT Images from the original note were not included. [facility] ENDOCRINOLOGY [address] [facility] [address] Dept: [phone] Dept Loc: [phone] Visit type: Established Reason for Visit: Follow-up [...] Subjective HPI PCP is Silvestre Sexton Previous Account Maintenance Representative: Dr Sal & Dr Benito [facility]: 2013 Last office visit: [...] is supposed to have followed up with ed case manager Dr. Monge , but has missed his [...] pituitary gland and craniopharyngeal duct (pouch) ([facility]) Chest pain, unspecified Chills 05/28/2022 Chronic flank pain Chronic pain Diverticulitis DVT (deep venous thrombosis) ([facility]) 2022 left leg Esophageal reflux Essential [...] unspecified hyperlipidemia Other anterior pituitary disorders ([facility]) Other testicular hypofunction Pituitary tumor Pyelonephritis [...] physician directly. documented in this encounterSSelect Medical Special[facility] Hospital - ColumbusViupyb24-16-9615 Telephone encounter Note* Telephone Encounter - Angela Brandt RN - 06/19/2023 6:50 PM EDT We have been unable to reach your patient to schedule their testing. Test Name: Complete PFT pre and post bronchodilator 1st Attempt: 06/15/2023 mychart message 2nd Attempt: 06/19/2023 LVM. [facility] [id number] Miscellaneous Notes* Telephone Encounter - Angela Brandt RN - 06/19/2023 6:50 PM EDT We have been unable to reach your patient to schedule their testing. Test Name: Complete PFT pre and post bronchodilator 1st Attempt: 06/15/2023 mychart message 2nd Attempt: 06/19/2023 LVM. documented in this [facility]03-05-2024 Telephone encounter Note* Telephone Encounter - Isa Cali NP - 04/30/2023 9:36 AM EST Multiple no shows and cancellations. Needs seen in office for refills. Isa [facility] HospitalAptfip65-53-0087 Miscellaneous Notes* Telephone Encounter - Isa Cali NP - 04/30/2023 9:36 AM EST Multiple no shows and cancellations. Needs seen in office for refills. Isa documented in this [facility]12-20-2023 Discharge summary Author Ryan Ceja [facility] February 13, 2023 3:02pm Note Date/Time February 13, 2023 1:56pm [facility] Medical Records Department [address] [place] [address] Discharge Summary 02/13/23 1345 MR#: [id number] Acct: [id number] Name: CORRIE QUEEN Rep #:[id number] : 1960 62 From: Dolly SHAFFER PCP: CHERYL BASILIO Status:ADM TAMMY Location: [place] [address] Providers Date of Admission: 02/12/23 Primary Care [...] 77.5 H, Lymph % (Auto) 12.6 L, [place] % (Auto) 8.5, Eos % (Auto) 0.8, [...] appointment time please contact the office at [phone]. Meaningful Use Info Meaningful Use Diagnoses (Choose [...] appointment time please contact the office at [phone]. Discharge Orders/Prescriptions Prescriptions: New clopidogrel 75 mg [...] Dr. Ryan Ceja MD; CHERYL BASILIO~ Signed [facility] Work Phone: 1(418) 865-233212-20-2023 Progress note Author Ryan Ceja [facility] February 13, 2023 3:02pm Note Date/Time February 13, 2023 12:22pm [facility] Medical Records Department [address] [place] [address] Progress Note - Surgery 02/13/23 1218 MR#: [id number] Acct: [id number] Name: CORRIE QUEEN Rep #:[id number] : 1960 62 From: Dolly SHAFFER PCP: CHERYL BASILIO Status:ADM TAMMY [facility] Subjective Subjective Mr. Queen is s/p [...] 77.5 H, Lymph % (Auto) 12.6 L, [place] % (Auto) 8.5, Eos % (Auto) 0.8, [...] applicable): 02/13/23 1502 <Electronically signed by Ryan Cjea MD> CC: ~ Signed [facility] Work Phone: 1(759) 513-535412-20-2023 Procedure [facility] 01-25-2023 Telephone encounter Note* Telephone Encounter - Rocio Ruiz MD - 01/25/2023 9:44 AM EST 90 day supply for cabergoiline sent [facility] HospitalHgyzsz37-13-0193 Miscellaneous Notes* Telephone Encounter - Rocio Ruiz MD - 01/25/2023 9:44 AM EST 90 day supply for cabergoiline sent * Telephone Encounter - Lilia Hart - 01/25/2023 8:46 AM EST Name of caller: Corrie Contact phone number: [phone] Relationship to Patient: patient Provider: Dr Ruiz Practice: Endo Chief Complaint/Reason for Call: Pt states that Dr Mendoza was aware that the pt was on vacation and thatDr Mendoza wanted to know immediately when the pt came back in town so that a prescription of a 90 day supply of cabergoline (Dostinex) 0.5 MG tablet [[id number]] would be [facility] on [facility]. Pt states is all out of the medication. Please advise Best time of day caller can be reached: Any Patient advised that office/PCP has 24-48 business hours to return their call: Yes documented in this encounterSSelect Medical Specialty Hospital - ColumbusWsjdoe76-27-2875 Telephone encounter Note* Telephone Encounter - Lilia Hart - 01/25/2023 8:46 AM EST Name of caller: Corrie Contact phone number: [phone] Relationship to Patient: patient Provider: Dr Ruiz Practice: Endo Chief Complaint/Reason for Call: Pt states that Dr Mendoza was aware that the pt was on vacation and thatDr Mendoza wanted to know immediately when the pt came back in town so that a prescription of a 90 day supply of cabergoline (Dostinex) 0.5 MG tablet [[id number]] would be call in to the [facility] on file. Pt states is all out of the medication. Please advise Best time of day caller can be reached: Any Patient advised that office/PCP has 24-48 business hours to return their call: Yes [employer] AdvertisingShdfhr08-61-1945 Telephone encounter Note* Telephone Encounter - Alma Beebe MA - 01/08/2023 11:51 AM EST Submitted PA for testosterone pump 2 pumps daily for 150g for a 30 day supply. Waiting on determination from [facility]. [facility] Flrjmu89-36-0444 Miscellaneous Notes* Telephone Encounter - Alma Beebe [...] Name of caller: Corrie Contact phone number: [phone] Relationship to Patient: patient Provider: Joseph Practice: [...] return their call: Yes documented in this [facility]11-10-2023 Telephone encounter Note* Telephone Encounter - Rocio Ruiz MD - 01/04/2023 12:38 PM EST Was informed by pharmacy that prescription for androgel needs prior auth , can you please help withthis ? Thanks [facility]11-10-2023 Telephone encounter Note* Telephone Encounter - [...] 01/03/2023 TESTOSTERONE 72 - 623 ng/dL [address] [place] [address]Hemikf57-86-8474 Telephone encounter Note* Telephone Encounter - Alma Beebe MA - 01/04/2023 11:36 AM EST It looks like you sent the cabergoline in on 01/02/23, but does he take testosterone? I do not see it. [facility] Lgmwta17-61-4645 Telephone encounter Note* Telephone Encounter - Pacheco Bronson - 01/04/2023 11:05 AM EST Name of caller: Corrie Contact phone number: [phone] Relationship to Patient: patient Provider: Joseph Practice: [...] business hours to return their call: Yes [employer] AdvertisingCrufrl93-07-9305 Telephone encounter Note* Telephone Encounter - Rocio Ruiz MD - 01/02/2023 4:56 PM EST called and spoke with pharmacist, insurance will not cover a 90-day supply right now but will covera 30-day supply. Prescription for 30 days sent to the pharmacy, informed patient. [employer] AdvertisingJrajou34-54-6784 Miscellaneous Notes* Telephone Encounter - Rocio Ruiz [...] call back CHANCE. documented in this encounterSumma Idbwob95-58-5556 Telephone encounter Note* Telephone Encounter - Daphne [...] Pt requesting a call back CHANCE. [facility] HospitalWmcsnt74-06-2801 History of Present illness Narrative* Rocio Ruiz MD - 01/02/2023 10:40 AM EST Images from the original note were not included. [facility] ENDOCRINOLOGY [address] [facility] [address] Dept: [phone] Dept Loc: [phone] Visit type: Established Reason for Visit: Follow-up, [...] Cheryl Basilio MD Referring is PCP Previous Account Maintenance Representative: Dr Sal & Dr Benito Initial [facility] end[facility]inology office visit: 2013 Last office [...] is supposed to have followed up with ed case manager Dr. Monge , but has missed his [...] pituitary gland and craniopharyngeal duct (pouch) ([facility]) Chest pain, unspecified Chills 05/28/2022 Chronic flank pain Chronic pain Diverticulitis DVT (deep venous thrombosis) ([facility]) 2022 left leg Esophageal reflux Essential [...] the signing physician directly. documented in this [facility]11-08-2023 Miscellaneous Notes* Addendum Note - Jocelyne Meng - 01/02/2023 10:40 AM ESTAddended by: JOCELYNE MENG on: 01/03/2023 08:18 AM Modules accepted: Orders documented in this [facility]11-08-2023 Note* Addendum Note - Jocelyne Meng - 01/02/2023 10:40 AM ESTAddended by: JOCELYNE MENG on: 01/03/2023 08:18 AM Modules accepted: Orders [facility] HospitalNusgto75-05-1858 NoteAddended by: JOCELYNE MENG on: 01/03/2023 08:18 AM Modules accepted: [facility]11-08-2023 History of Present illness Narrative* Ziggy Arauz [...] for any concerns. . documented in this [facility]10-31-2023 Hospital Discharge instructions* Discharge Instructions* Pacheco [...] through Care Everywhere. * Bleeding After Surgery (Dominican) documented in this [facility]10-31-2023 Emergency department Note* Pacheco Ortiz MD - 12/25/2022 6:40 PM EDT Emergency Department Encounter [facility] ED Patient: Corrie Queen : 1960 [...] Surgery [facility] around noon, [facility] and when he [...] area, home w family documented in this [facility]10-31-2023 Emergency department Triage note* Paola Paula RN - 12/25/2022 6:40 PM EDT Patient ambulatory to room 4 presenting status post-op with drainage from site. Patient had an attempted thrombectomy of the left lower leg today with entry behind the left knee; he presents with shadowing on his jeans, and saturated dressing post-op. Surgery was around noon, [facility], and when he [...] for surgery. Call light in reach. Doctors HospitalYqrlim06-08-7189 Emergency department Triage note* Sierra Brewer RN - 12/25/2022 6:40 PM EDT Bleeding subsided. Pt given dc instructions and follow up care. Pt verbalizes understanding. Pt ambindep to dc area, home w family [facility] HospitalIkvxvi61-29-1030 Physician Emergency department Note* Pacheco Ortiz MD - 12/25/2022 6:40 PM EDT Emergency Department Encounter [facility] ED Patient: Corrie Queen : 1960 [...] for clarification. Pacheco Ortiz MD Acute Care [facility] Pacheco Ortiz MD 12/25/22 2017 Doctors HospitalJajmgd40-53-5018 Note* Nurse Navigation Note - Charley Miguel RN - 12/25/2022 4:58 PM EDT Patient upset wanting to leave,eye drops called to his pharmacy, patient transported out via w/c with the daughter Doctors HospitalJpcexk71-27-7862 Miscellaneous Notes* Nurse Navigation Note - Charley [...] PM EDT Family notified of arrival to [facility] * Op Note - Ziggy Arauz MD [...] and exchanged over a wire for a 8-British sheath tjo the level of the right [...] condition. ZIGGY ARAUZ MD documented in this [facility]10-31-2023 Note* Nurse Navigation Note - Charley [...] notified they will place new orders. Doctors HospitalExcuyo73-84-6688 Note* Nurse Navigation Note - Charley Miguel RN - 12/25/2022 4:03 PM EDT Discharge instructions reviewed with the patient and the daughter, patient to follow up with after discharge, no further questions , patient instructed on surgical site care. [facility] HospitalXtfkja81-49-4352 Note* Perioperative Nursing Note - Charley Miguel RN - 12/25/2022 3:52 PM EDT Daughter called to the room [place] [id number] Note* Perioperative Nursing Note - Charley Miguel RN - 12/25/2022 2:49 PM EDT Family member updated Maury daughter regarding current status and bedrest [address]Ogvakj02-01-0444 NotePatient: Corrie Montano Evangelist Procedure Summary Date: 12/25/22 Room / Location: [facility] Operating Room Anesthesia Start: 1207 Anesthesia Stop: [...] discharged once all PACU criteria has been met.[facility]10-31-2023 NotePatient: Corrie Montano Evangelist Procedure Summary Date: 12/25/22 Room / Location: [facility] Operating Room Anesthesia Start: 1207 Anesthesia Stop: [...] Hydration status: acceptable No notable events documented. [facility] PONV Patient received an inhalational [...] Allowed opportunity for questions and acknowledgement of understanding.[facility]10-31-2023 Note* Nurse Navigation Note - Charley Miguel RN - 12/25/2022 2:27 PM EDT Family notified of arrival to [facility] Doctors HospitalEsizhy18-89-7733 Hospital Discharge instructions* Discharge Instructions* Pacheco Santiago [...] please call our office. documented in this [facility]10-31-2023 NoteAirway Date/Time: 12/25/2022 12:12 PM Urgency: scheduled General Information and Staff Patient location during procedure: Procedural Resident/VEHICLE CARE SPECIALIST: FELISHA Winn CRNA Performed: VEHICLE CARE SPECIALIST Performed by: FELISHA Winn CRNA Authorized by: FELISHA Winn CRNA Indications and Patient Condition Indications for airway management: anesthesia Sedation level: RSI Preoxygenated: yes Patient position: sniffing MILS maintained throughout Mask difficulty assessment: 1 - vent by mask Final Airway Details Final airway type: endotracheal airway Successful airway: ETT Cuffed: yes Successful intubation technique: video laryngoscopy Endotracheal tube insertion site: oral Blade: [place] scope Blade size: #3 ETT size (mm): 8.0 Placement verified by: chest auscultation Measured from: teeth ETT to teeth (cm): 22 Number of attempts at approach: [address] [place], [place] [id number] Attending History and physical note* Ziggy Arauz [...] OPEN OR PERCUTANEOUS INITIAL VEIN (Left) Location: [facility] Operating Room Surgeons: Ziggy Arauz MD Chief [...] who we are asked to see/evaluate by [facility] 02 for pre-operative evaluation prior to . LEFT ILIOFEMORAL DEEP VEIN THROMBOSIS, THROMBECTOMY AND STENTING (Left) [07657 CPT(R)] TRANSCATHETER PLACEMENT OF AN INTRAVASCULAR STENT(S), OPEN OR PERCUTANEOUS INITIAL VEIN (Left) [60979 CPT(R)] Anesthesia type: General The patient is [...] office note 12/10/2022 ? Denies history of AR, CAD, CHF, TIA, CVA Past Medical History: [...] pituitary gland and craniopharyngeal duct (pouch) ([facility]) No date: Chest pain, unspecified 05/28/2022: Chills No date: Diverticulitis 2022: DVT (deep venous thrombosis) ([facility]) Comment: left leg No date: Esophageal [...] Electronically signed by: Carissa Romero APRN - CLINICAL PROJECT LEADER Date: 12/13/2022 at 10:[address] [facility] [id number] Note* Op Note - Ziggy Arauz MD [...] and exchanged over a wire for a 8-British sheath tjo the level of the right [...] in stable condition. ZIGGY ARAUZ MD [facility] HospitalEyktkg84-44-0642 NoteH&P reviewed. The patient was examined and [...] current symptoms. He chooses to proceed as planned.[facility] 12-25-2022 NoteOPERATIVE REPORT SURGEON: ZIGGY ARAUZ [...] and exchanged over a wire for a 8-British sheath tjo the level of the right [...] recovery room in stable condition. ZIGGY ARAUZ, [facility]10-31-2023 History and physical note* Ziggy Arauz MD [...] Source Note - Carissa Romero APRN - CLINICAL PROJECT LEADER - 12/13/2022 10:00 AM EDT Images from the original note were not included. Comprehensive Pre Surgical History and Physical ? Name: Corrie Queen : 1960 (Age-62 y.o.) Date of Service: Pt seen/examined on 12/13/2022 Procedure Information Date/Time: 12/25/22 1030 Procedures: LEFT ILIOFEMORAL DEEP VEIN THROMBOSIS, THROMBECTOMY AND STENTING (Left) TRANSCATHETER PLACEMENT OF AN INTRAVASCULAR STENT(S), OPEN OR PERCUTANEOUS INITIAL VEIN (Left) Location: [facility] Operating Room Surgeons: Ziggy Arauz MD Chief [...] who we are asked to see/evaluate by [facility] 02 for pre-operative evaluation prior to . LEFT ILIOFEMORAL DEEP VEIN THROMBOSIS, THROMBECTOMY AND STENTING (Left) [55023 CPT(R)] TRANSCATHETER PLACEMENT OF AN INTRAVASCULAR STENT(S), OPEN OR PERCUTANEOUS INITIAL VEIN (Left) [26949 CPT(R)] Anesthesia type: General The patient is [...] office note 12/10/2022 ? Denies history of AR, CAD, CHF, TIA, CVA Past Medical History: [...] OPEN OR PERCUTANEOUS INITIAL VEIN (Left) Location: [facility] Operating Room Surgeons: Ziggy Arauz MD Chief [...] who we are asked to see/evaluate by [facility] 02 for pre-operative evaluation prior to . LEFT ILIOFEMORAL DEEP VEIN THROMBOSIS, THROMBECTOMY AND STENTING (Left) [79813 CPT(R)] TRANSCATHETER PLACEMENT OF AN INTRAVASCULAR STENT(S), OPEN OR PERCUTANEOUS INITIAL VEIN (Left) [57483 CPT(R)] Anesthesia type: General The patient is [...] office note 12/10/2022 ? Denies history of AR, CAD, CHF, TIA, CVA Past Medical History: [...] pituitary gland and craniopharyngeal duct (pouch) ([facility]) No date: Chest pain, unspecified 05/28/2022: Chills No date: Diverticulitis 2022: DVT (deep venous thrombosis) ([facility]) Comment: left leg No date: Esophageal [...] OPEN OR PERCUTANEOUS INITIAL VEIN (Left) Location: [facility] Operating Room Surgeons: Ziggy Arauz MD Chief [...] who we are asked to see/evaluate by [facility] 02 for pre-operative evaluation prior to . LEFT ILIOFEMORAL DEEP VEIN THROMBOSIS, THROMBECTOMY AND STENTING (Left) [52778 CPT(R)] TRANSCATHETER PLACEMENT OF AN INTRAVASCULAR STENT(S), OPEN OR PERCUTANEOUS INITIAL VEIN (Left) [54959 CPT(R)] Anesthesia type: General The patient is [...] deep vein thrombosis (DVT) of iliofemoral vein ([facility]) This is now a left iliofemoral [...] office note 12/10/2022 ? Denies history of AR, CAD, CHF, TIA, CVA Past Medical History: [...] pituitary gland and craniopharyngeal duct (pouch) ([facility]) No date: Chest pain, unspecified 05/28/2022: Chills No date: Diverticulitis 2022: DVT (deep venous thrombosis) ([facility]) Comment: left leg No date: Esophageal [...] 12/13/2022 at 10:28 AM documented in this [facility]10-31-2023 Attending History and physical note* Ziggy Arazu MD - 12/25/2022 10:30 AM EDT H&P [...] OPEN OR PERCUTANEOUS INITIAL VEIN (Left) Location: [facility] Operating Room Surgeons: Ziggy Arauz MD Chief [...] who we are asked to see/evaluate by [facility] 02 for pre-operative evaluation prior to . LEFT ILIOFEMORAL DEEP VEIN THROMBOSIS, THROMBECTOMY AND STENTING (Left) [48071 CPT(R)] TRANSCATHETER PLACEMENT OF AN INTRAVASCULAR STENT(S), OPEN OR PERCUTANEOUS INITIAL VEIN (Left) [71645 CPT(R)] Anesthesia type: General The patient is [...] office note 12/10/2022 ? Denies history of AR, CAD, CHF, TIA, CVA Past Medical History: [...] pituitary gland and craniopharyngeal duct (pouch) ([facility]) No date: Chest pain, unspecified 05/28/2022: Chills No date: Diverticulitis 2022: DVT (deep venous thrombosis) ([facility]) Comment: left leg No date: Esophageal [...] Electronically signed by: Carissa Romero APRN - CLINICAL PROJECT LEADER Date: 12/13/2022 at 10:28 AM [facility] HospitalZjhnme46-29-6503 NoteH&P reviewed. The patient was examined and there are no changes to the H&P.[facility]10-31-2023 NoteH&P reviewed. The patient was examined and there are no changes to the H&P.[facility] 12-22-2022 Hospital Discharge instructions* Discharge Instructions* Pacheco Negron MD - 12/22/2022 10:12 AM EDT Tylenol for pain. Call your PCP Sunday 12/24 for results from yesterday's urine culture. * Attachments The following attachments cannot be sent through Care Everywhere. * Flank Pain ED (Dominican) documented in this [facility]10-28-2023 Emergency department Note* Estefany Dunlap RN - 12/22/2022 8:[address] Negron the pt was prescribed Cipro yesterday by Dr. Basilio. Pt had not previously mentioned this to ED providers. Dr. Negron at bedside again speaking with pt. Estefany Dunlap RN 12/22/22 0857 [facility] HospitalBwvnzk85-48-5105 Emergency department Note* Estefany Dunlap RN - [...] UA. He then saw Dr. Basilio in [place] yesterday and had another UA as well [...] culture pending KUB and ultrasound unremarkable per [facility]. Patient is concerned that he has [...] pituitary gland and craniopharyngeal duct (pouch) ([facility]) Chest pain, unspecified Chills 05/28/2022 Chronic flank pain Chronic pain Diverticulitis DVT (deep venous thrombosis) ([facility]) 2022 left leg Esophageal reflux Essential [...] Culture. Procedure Abnormality Status --------- ------ Complete Urinalysis[[id number]] Normal Final result Please view results for [...] determinants of health affecting care: [facility] Medications managed: [...] AM PATIENT REFERRED TO: Cheryl Basilio MD [address] [place] [address] [address] [facility] [address] In 2 days DISCHARGE MEDICATIONS: New Prescriptions [...] Negron MD 12/22/22 1251 documented in this [facility]10-28-2023 Emergency department Note* Estefany Dunlap RN - 12/22/2022 8:38 AM EDT ED medic to room to start IV/obtain labs per orders after physician spoke with pt at length about plan of care. Pt questioning medic why we are doing bloodwork and wants to speak with Dr. Negron again. Dr. Negron back to room. Estefany Dunlap RN 12/22/22 0841 [facility] [id number] NoteED medic to room to start IV/obtain labs per orders after physician spoke with pt at length about plan of care. Pt questioning medic why we are doing bloodwork and wants to speak with Dr. Negron again. Dr. Negron back to room. Estefany Dunlap RN 12/22/22 0841[facility]10-28-2023 Emergency department Triage note * Estefany [...] PerEPIC the pt placed calls to the office/[facility] stating he needed IV abx specifically but was advised this is not indicated for negative UA. He then saw Dr. Basilio in [place] yesterday and had another UA as well as outpatient US and Xray. UA yesterday was again negative but was sent for culture. Outpatient imaging was all negative as well. Pt was prescribed Cipro in spite of negative results. Pt states his c/o are falling on deaf ears. He reports having chills and sweats this morning. Hestates he called the [facility] today and was told by the nurse to come to the ED to get a CT scan. Pt is concerned that he is having DVT surgery Saturday and that if he has an infection it will cause issueswith his procedure. Pt is A&Ox3, respirations even and unlabored, skin warm and dry, no s/s of distress noted. Pt negative/irritable during triage. [facility] [id number] Physician Emergency department Note* Pacheco Negron MD [...] culture pending KUB and ultrasound unremarkable per [facility]. Patient is concerned that he has [...] pituitary gland and craniopharyngeal duct (pouch) ([facility]) Chest pain, unspecified Chills 05/28/2022 Chronic flank pain Chronic pain Diverticulitis DVT (deep venous thrombosis) ([facility]) 2022 left leg Esophageal reflux Essential [...] Culture. Procedure Abnormality Status --------- ------ Complete Urinalysis[[id number]] Normal Final result Please view results for [...] determinants of health affecting care: [facility] Medications managed: [...] AM PATIENT REFERRED TO: Cheryl Basilio MD [address] [place] [address] [address] [place] [address] In 2 days DISCHARGE MEDICATIONS: New Prescriptions [...] Provider Pacheco Negron MD 12/22/22 1251 [facility] [id number] Telephone encounter Note* Telephone Encounter - Farzana [...] Patient verbalizes understanding. States will go to [place] ED because has not had luck at [place]. Instructed to call back with any further questions or concerns. Reason for Disposition [1] Abdominal pain AND [2] age > 60 years Protocols used: Flank Ctyn-FCVDN-OX [facility] HospitalFksvkp28-85-5382 Miscellaneous Notes* Telephone Encounter - Farzana Samaniego [...] Patient verbalizes understanding. States will go to [place] ED because has not had luck at [place]. Instructed to call back with any further questions or concerns. Reason for Disposition [1] Abdominal pain AND [2] age > 60 years Protocols used: Flank Ujgm-GJJNI-NF documented in this encounterSSelect Medical Specialty Hospital - ColumbusLzkjtr32-48-4458 Telephone encounter Note* Telephone Encounter - Tayler Simpson MA - 12/18/2022 8:40 AM EDT Mychart message sent [place] [address]Jxzkzp91-30-9955 Miscellaneous Notes* Telephone Encounter - Tayler Simpson MA - 12/18/2022 8:40 AM EDT BRCK Inct message sent * Telephone Encounter - Cheryl [...] before then. documented in this encounterSSelect Medical Specialty Hospital - ColumbusAzagke60-62-4627 Telephone encounter Note* Telephone Encounter - Cheryl Basilio MD - 12/18/2022 7:33 AM EDT Please schedule visit to discuss. Thanks [facility] HospitalKjtcuc96-76-7228 Telephone encounter Note* Telephone Encounter - Dat [...] back with new or worsening symptoms. [facility] Jndmce15-84-8832 Miscellaneous Notes* Telephone Encounter - Dat Talbot [...] before then. documented in this encounterSSelect Medical Specialty Hospital - ColumbusZinvuf70-32-6926 Telephone encounter Note* Telephone Encounter - Dat Talbot RN - 12/17/2022 2:57 PM EDT . Reason for Disposition MODERATE pain (e.g., interferes with normal activities or awakens from sleep) Protocols used: Flank Vxof-PNZEA-RF [facility] HospitalFdnzyl79-57-3826 Miscellaneous Notes* Telephone Encounter - Dat Talbot RN - 12/17/2022 2:57 PM EDT . Reason for Disposition MODERATE pain (e.g., interferes with normal activities or awakens from sleep) Protocols used: Flank Vrxx-JJOTN-TP documented in this encounterSSelect Medical Specialty Hospital - ColumbusEbxtsg64-11-3789 Telephone encounter Note* Telephone Encounter - Mary Garcia MA - 12/17/2022 9:13 AM EDT Notified Corrie. Doctors HospitalIwhffe42-52-5761 Telephone encounter Note* Telephone Encounter - Leanne [...] to offer him at this time. [facility] HospitalSievir21-10-9761 Telephone encounter Note* Telephone Encounter - Mary Garcia MA - 12/17/2022 8:02 AM EDT Pt reported that he was scheduled with urology last week but missed the appointment d/t needing to be seen for the blood clot. Advised him we need to get him in with urology chance after his surgery. UA results on your desk and order pended. [facility] HospitalOxfwar42-37-9498 Telephone encounter Note* Telephone Encounter - Sierra [...] issue he is having fixed before then. [facility] [place] [employer] AdvertisingLnmrty91-84-2753 NotePatient: Corrie Queen Procedure Information Date/Time: 12/25/22 1030 Procedures: LEFT ILIOFEMORAL DEEP VEIN THROMBOSIS, THROMBECTOMY AND STENTING (Left) TRANSCATHETER PLACEMENT OF AN INTRAVASCULAR STENT(S), OPEN OR PERCUTANEOUS INITIAL VEIN (Left) Location: [facility] Operating Room Surgeons: Ziggy Arauz MD Past [...] pituitary gland and craniopharyngeal duct (pouch) ([facility]) No date: Chest pain, unspecified 05/28/2022: Chills No date: Diverticulitis 2022: DVT (deep venous thrombosis) ([facility]) Comment: left leg No date: Esophageal [...] SCAN (Final) Narrative Ordered by an unspecified provider.[facility]10-19-2023 Note Comprehensive Pre Surgical History and Physical ? Name: Corrie Queen : 1960 (Age-62 y.o.) Date of Service: Pt seen/examined on 12/13/2022 Procedure Information Date/Time: 12/25/22 1030 Procedures: LEFT ILIOFEMORAL DEEP VEIN THROMBOSIS, THROMBECTOMY AND STENTING (Left) TRANSCATHETER PLACEMENT OF AN INTRAVASCULAR STENT(S), OPEN OR PERCUTANEOUS INITIAL VEIN (Left) Location: [facility] Operating Room Surgeons: Ziggy Arauz MD Chief [...] who we are asked to see/evaluate by [facility] 02 for pre-operative evaluation prior to . LEFT ILIOFEMORAL DEEP VEIN THROMBOSIS, THROMBECTOMY AND STENTING (Left) [41292 CPT(R)] TRANSCATHETER PLACEMENT OF AN INTRAVASCULAR STENT(S), OPEN OR PERCUTANEOUS INITIAL VEIN (Left) [37872 CPT(R)] Anesthesia type: General The patient is [...] for attempted left lois (more content not included)...[facility]10-19-2023 Note Comprehensive Pre Surgical History and Physical ? Name: Corrie Queen : 1960 (Age-62 y.o.) Date of Service: Pt seen/examined on 12/13/2022 Procedure Information Date/Time: 12/25/22 1030 Procedures: LEFT ILIOFEMORAL DEEP VEIN THROMBOSIS, THROMBECTOMY AND STENTING (Left) TRANSCATHETER PLACEMENT OF AN INTRAVASCULAR STENT(S), OPEN OR PERCUTANEOUS INITIAL VEIN (Left) Location: [facility] Operating Room Surgeons: Ziggy Arauz MD Chief [...] DEEP VEIN THROMBOSIS, THROMBECTOMY AND STENTING (Left) [80320 CPT(R)] TRANSCATHETER PLACEMENT OF AN INTRAVASCULAR STENT(S), OPEN OR PERCUTANEOUS INITIAL VEIN (Left) [74069 CPT(R)] Anesthesia type: General The patient is [...] for attempted left lois (more content not included)...[facility] [id number] Hospital Discharge instructions* Discharge Instructions* Kendra Sauer [...] (Blood Clots in the Legs) Discharge Instructions (Dominican) documented in this [facility]10-13-2023 Emergency department Note* Lorena Castillo RN - 12/07/2022 2:23 PM EDT Surgery resident at bedside. Lorena Castillo RN 12/07/22 1423 [facility] HospitalEzdkmm30-19-4493 Emergency department Note* Lorena Castillo RN - [...] [employer] Yolanda Patel DO 12/07/22 180 * Munira Mcgregor RN - 12/07/2022 9:15 AM EDT Bed: 06 Expected date: Expected time: Means of arrival: Comments: Triage Munira Mcgregor RN 12/07/22 0931 documented in this [facility]10-13-2023 NoteVascular Surgery Consultation Note Reason for [...] a dose. Patient reports he was in [place] on 12/04 when he experienced an exacerbation [...] for Saturday 2:15pm with Dr Arauz in [place] for possible discussion about thrombectomy Past Medical [...] Housing Stability: Unknown (09/25 (more content not included)...[facility]10-13-[facility] Emergency department Note* Lorena Castillo RN - 12/07/2022 1:33 PM EDT Vascular at bedside. Lorena Castillo RN 12/07/22 1333 [facility] HospitalCmkufi43-11-4159 Emergency department Note* Lorena Castillo RN - 12/07/2022 1:18 PM EDT Pt ambulated to restroom with steady and even gait. Lorena Castillo RN 12/07/22 1319 [facility] HospitalZwrsvb74-10-0132 Emergency department Note* Lorena Castillo RN - 12/07/2022 1:11 PM EDT Report from GARY Becerril. Lorena Castillo RN 12/07/22 1311 [address]Mpowkv25-06-4826 Emergency department Note* Munira Mcgregor RN - 12/07/2022 9:15 AM EDT Bed: 06 Expected date: Expected time: Means of arrival: Comments: Triage Munira Mcgregor RN 12/07/22 3928 [address]Rdfzew93-80-0808 Physician Emergency department Note* Yolanda Patel DO [...] [employer] Yolanda Patel DO 12/07/22 180 [employer] Phone: 1(548) 336-685709-21-2023 History of Present illness Narrative* Cheryl Basilio MD - 11/15/2022 2:51 PM EDT Lasix documented in this encounterSSelect Medical Specialty Hospital - ColumbusXthggg96-47-3457 Telephone encounter Note* Telephone Encounter - Farzana [...] one leg Protocols used: Leg Swelling and Xqant-ZVANP-CS [facility] HospitalPrsgrz85-80-2704 Telephone encounter Note* Telephone Encounter - Arjun Velarde MA - 11/15/2022 2:10 PM EDT Duplicate message, there is already 2 other encounters in regards to this. Pt will get results oncethey are reviewed by provider. Doctors HospitalDhtnrq29-61-1441 Miscellaneous Notes* Telephone Encounter - Farzana Samaniego [...] one leg Protocols used: Leg Swelling and Qqkab-ZOTMZ-GH * Telephone Encounter - Arjun Velarde MA - 11/15/2022 2:10 PM EDT Duplicate message, there is already 2 other encounters in regards to this. Pt will get results oncethey are reviewed by provider. * Telephone Encounter - Dat Talbot RN - 11/15/2022 1:53 PM EDT S: Patient spoke with [facility] nurse regarding US results B: 11/14/22 US bilateral lower extremities A: Patient would like the results of his US done yesterday. Patient very upset that nobody has callhim. R: Call patient with results. Reason for Disposition Nursing judgment Protocols used: Information Only Call - No Pegolu-UXWSV-FR documented in this [facility]09-21-2023 Telephone encounter Note* Telephone Encounter - Farzana Samaniego RN - 11/15/2022 2:09 PM EDT Duplicate call Reason for Disposition Caller has already spoken with another triager and has no further questions Protocols used: No Contact or Duplicate Contact Acmo-ZCFOC-JU Doctors HospitalUvkvqe63-51-2341 Miscellaneous Notes* Telephone Encounter - Farzana Samaniego RN - 11/15/2022 2:09 PM EDT Duplicate call Reason for Disposition Caller has already spoken with another triager and has no further questions Protocols used: No Contact or Duplicate Contact Lgno-VRATJ-VC documented in this encounterSSelect Medical Specialty Hospital - ColumbusIcftkv74-01-2463 Telephone encounter Note* Telephone Encounter - Dat [...] Protocols used: Information Only Call - No Vzcbsv-BABHV-TT [facility] HospitalGjucns34-60-6475 Miscellaneous Notes* Telephone Encounter - Shannan Rodriguez - 11/15/2022 10:19 AM EDT Name of caller: Corrie Contact phone number: [phone] Relationship to Patient: patient Provider: Kj Practice: [...] call: Yes documented in this encounterSSelect Medical Specialty Hospital - ColumbusTsqswq86-30-5361 Telephone encounter Note* Telephone Encounter - Shannan Rodriguez - 11/15/2022 10:19 AM EDT Name of caller: Corrie Contact phone number: [phone] Relationship to Patient: patient Provider: Kj Practice: [...] hours to return their call: Yes [facility] HospitalCjyphk17-90-9678 Telephone encounter Note* Telephone Encounter - Nubia [...] back with new or worsening symptoms. Doctors HospitalNvtesq44-71-8112 Miscellaneous Notes* Telephone Encounter - Nubia Gallo [...] Protocols used: Information Only Call - No Hpsglk-IXGCV-JD documented in this [facility]09-20-2023 Telephone encounter Note* Telephone Encounter - [...] Protocols used: Information Only Call - No Fxlddo-GPKJZ-IL [facility] HospitalOrjtmh30-45-2749 History of Present illness Narrative* Cheryl Basilio MD - 11/14/2022 11:00 AM EDT Images from the original note were not included. [facility] INTERNAL MEDICINE [address] [facility] [address] Dept: [phone] Dept Loc: [phone] Visit type: Established patient Reason for Visit: [...] alert. Cheryl Basilio MD documented in this [facility]09-20-2023 Instructions* Patient Instructions* Cheryl Basilio MD - 11/14/2022 11:00 AM EDT The number for [facility] Central Scheduling is [phone]. documented in this [facility]09-19-2023 Telephone encounter Note* Telephone Encounter - [...] period? N/A Protocols used: Leg Swelling and Zxsmx-IYKAD-AH [facility] HospitalGwvlmb99-99-1547 Miscellaneous Notes* Telephone Encounter - Khalida Currie [...] period? N/A Protocols used: Leg Swelling and Buvrl-YIAWJ-HV documented in this encounterSSelect Medical Specialty Hospital - ColumbusXnxkxk30-88-2678 Telephone encounter Note* Telephone Encounter - Cheryl Basilio MD - 10/31/2022 9:28 PM EDT Ordered. Thanks Doctors HospitalOupole22-78-5255 Miscellaneous Notes* Telephone Encounter - Cheryl Basilio MD - 10/31/2022 9:28 PM EDT Ordered. Thanks * Telephone Encounter - Mitzy Gipsonyer - 10/31/2022 10:54 AM EDT Ordering provider: Dr. Basilio Date of last office visit: 10/24/22 Date of next office visit: N/A Updated/Validated preferred pharmacy: Yes [id number] [phone] Patient instructed to contact the pharmacy prior [...] tab): 08/22/22 last written documented in this [facility]09-06-2023 Telephone encounter Note* Telephone Encounter - Mitzy Velez - 10/31/2022 10:54 AM EDT Ordering provider: Dr. Basilio Date of last office visit: 10/24/22 Date of next office visit: N/A Updated/Validated preferred pharmacy: Yes [id number] [phone] Patient instructed to contact the pharmacy prior [...] (see medication tab): 08/22/22 last written [facility] HospitalOmztar17-94-4633 Miscellaneous Notes* Care Coordination - Unknown Case Management - 10/16/2022 4:01 PM EDT Patient Choice Patient Name: CORRIE QUEEN Date of : 1960 All Providers Sent Referral Name: Physician [facility] [place] Address: [facility] Anali Willis, [address] [address] Name: [facility] Address: [address] [place] [address] Name: [facility] [place] Phone: [phone] Address: [address] [place] [address] [address] [place] [address] Name: [facility] [employer] Phone: [phone] Address: [address] [place] [address] Name: [facility] Phone: [phone] Address: [address] [place] [address] Name: [facility] Phone: [phone] Address: [address] [place] [address] Name: [facility] Phone: [phone] Address: [address] [place] [address] Name: [facility] [place] (All Offices) Phone: [phone] Address: [address] [place] [address] Name: [facility] Phone: [phone] Address: [address] [place] [address] Name: [facility] ([facility] Phone: [phone] Address: [address] [address] Name: [facility] Home Phone: [phone] Address: [address] [place] [address] Name: [facility] Centralized Intake Phone: [phone] Address: [address] [place] [address] Name: [facility] Phone: [phone] Address: [address] [facility],[address] [place] [address] * Home Care - Brian Chanel RN [...] service location. Referrals have been sent via [facility]. Liaison to discuss available agencies to [...] Management Progress Note Spoke with [facility] yesterday afternoon. They are [...] 3-7. Tentative discharge home vs home with [facility] when medically stable. Will monitor therapy evals [...] Xarelto. * Rapid Response Note - Danelle oLuis RN - 10/15/2022 12:56 PM EDT Rapid [...] and speak with Xiomara from [facility] specialty pharmacy and requested that PA be initiated onxarelto. She will contact [facility] once obtained. Updated attending of this. * Care Coordination - Natacha Deluna RN - 10/15/2022 9:34 AM EDT Per meds to beds xarelto will require PA [phone]. * Care Coordination - Natacha Deluna RN - 10/15/2022 6:33 AM EDT Images from the original note were not included. Care Management Progress Note Family picked up first [facility] Awaiting [...] new script for 30 day supply to [facility] in [place]. Called and spoke with pharmacist at [facility] and 30 day script has already been [...] 3:56 PM EDT Called jayson lowry in [place]. Xarelto script does require PA. Had pharmacist run without insurance and only use FREE 30 day copay card and was able to go through with no cost. Returned to patient's room. Met with he and his daughter Isa. Apologized for earlier misunderstanding. Explained thathad spoken to jayson lowry in [place] and his xarelto had gone through with [...] and daughter requesting to speak with supervisor painting department about separate incident. Forest Fire Prevention Manager updated. Discharge plan is home when medically stable. * Care Coordination - Natacha Deluna RN - 10/13/2022 3:50 PM EDT Care Managment Initial Assessment Date: 10/13/2022 Patient Name: Corrie Queen : 1960 Patient Information Source of Information: Patient Name/Contact Information: ISA HENSLEY [phone] DAUGHTER MAURY QUEEN DAUGHTER [phone] Cognition/Language: WFL - Within Functional Limits Permission given to speak with patient internet sales representative/caregiver as indicated: Yes Confirmation of [...] Daily Living Prescription Coverage: Yes Pharmacy Used: [facility] [place] Medication Management: Independent Transportation/Shopping: Independent Transportation Mode: [...] consulted. Daily labs. Spoke with attending via [employer] chat and wanted to know costs of [...] stated we were no different here from [facility] and he wanted to speak with the [...] today for complete details. documented in this [place] [address]-22-2023 Note* Care Coordination - Unknown Case Management - 10/16/2022 4:01 PM EDT Patient Choice Patient Name: CORRIE QUEEN Date of : 1960 All Providers Sent Referral Name: [facility] Address: [facility] Anali Willis, [address] [address] Name: [facility] Address: [address] [place] [address] Name: [facility] Phone: [phone] Address: [address] [place] [id number] [place] [address] Name: [facility] [employer] Phone: [phone] Address: [address] [place] [address] Name: [employer] Phone: [phone] Address: [address] [place] [address] Name: [facility] Phone: [phone] Address: [address] [place] [address] Name: [facility] Phone: [phone] Address: [address] [place] [address] Name: [facility] - [facility] (All Offices) Phone: [phone] Address: [address] [address] Name: [facility] Phone: [phone] Address: [address] [place] [address] Name: [facility] ([facility]) Phone: [phone] Address: [address] [address] Name: [facility] Phone: [phone] Address: [facility] [place] [address] Name: [facility] Centralized Intake Phone: [phone] Address: [address] [place] [address] Name: [facility] Phone: [phone] Address: [address] [place], [place] [address] [address] StreetOifofo70-96-6832 Note* Home Care - Brian Chanel RN - 10/16/2022 4:01 PM EDT Discussed with patient the accepting agencies for home care. The patient states that he was given aprescription from the pharmacy for insulin and is so upset right now that he doesn't even want the home care any longer. Notified the agencies. Referral is close out. Home care to sign off. [address] StreetKoyaiv65-78-7039 Note* Care Coordination - Unknown Case Management - 10/16/2022 4:01 PM EDT Patient Choice Patient Name: CORRIE QUEEN Date of : 1960 All Providers Sent Referral Name: [facility] Address: [facility] Anali [address] [address] Name: [facility] Address: [address] [place] [address] Name: [facility] Phone: [phone] Address: [address] [place] [address] [address] [place] [address] Name: [facility] Phone: [phone] Address: [address] [place] [address] Name: [facility] Phone: [phone] Address: [address] [place] [address] Name: [facility] Phone: [phone] Address: [address] [place] [address] Name: [facility] Phone: [phone] Address: [address] [place] [address] Name: [facility] [place] (All Offices) Phone: [phone] Address: [address] [place] [address] Name: [facility] Phone: [phone] Address: [address] [place] [address] Name: [facility] ([facility]) Phone: [phone] Address: [address] [address] Name: [facility] Phone: [phone] Address: [address] [place] [address] Name: [facility] Intake Phone: [phone] Address: [address] [facility] [place] [address] Name: [facility] Phone: [phone] Address: [address] [facility],[address] [place] [address] [facility] Uizjpz23-47-1908 Note* Home Care - Brian Chanel RN - 10/16/2022 4:01 PM EDT Discussed with patient the accepting agencies for home care. The patient states that he was given aprescription from the pharmacy for insulin and is so upset right now that he doesn't even want the home care any longer. Notified the agencies. Referral is close out. Home care to sign off. [facility] HospitalMpdcfc24-62-7310 Nurse Note* Nasra Bass RN - 10/16/2022 3:31 PM EDT Discharge instructions reviewed with patient. New prescriptions, follow up appointments and signs and symptoms also reviewed. Patient ambulated from unit with a friend. Patient to nut picker prescriptions at hospital pharmacy. [facility] HospitalWyxzkb94-04-6465 Nurse Note* Nasra Bass RN - 10/16/2022 3:31 PM EDT Discharge instructions reviewed with patient. New prescriptions, follow up appointments and signs and symptoms also reviewed. Patient ambulated from unit with a friend. Patient to nut picker prescriptions at hospital pharmacy. documented in this [place] [address]-22-2023 Hospital Discharge instructions* Discharge Instr - Activity* Nasra Bass RN - 10/16/2022 3:21 PM EDT As tolerated * Appointments* Natacha Deluna RN - 10/16/2022 6:58 AM EDT PLASTER PATTERN CASTER SPOKE WITH TAYLER AT DR. BASILIO'S OFFICE ABOUT PRIOR AUTHORIZATION NEEDED FOR YOUR REFILLS FOR XARELTO. SHE WILL INITIATE THIS. SHE WILL CONTACT YOU IF THERE ARE ANY PROBLEMS. * Attachments The following attachments cannot be sent through Care Everywhere. * Deep Vein Thrombosis (Blood Clots in the Legs) Discharge Instructions (Dominican) * Going Home on Blood Thinners (Dominican) documented in this [place] [address]-22-2023 Note* Home Care - Brian Chanel RN - 10/16/2022 3:17 PM EDT Educated patient on Home Care and services available. Patient is agreeable to receiving home care services at this time. Patient was given choice of home care agencies available in the area and is agreeable to having referrals made with agencies that staff the patients service location. Referrals have been sent via [employer]. Liaison to discuss available agencies to accept case with patient upon receiving responses. [facility] HospitalVkoysy53-70-4882 Note* Home Care - Brian Chanel RN - 10/16/2022 3:17 PM EDT Educated patient on Home Care and services available. Patient is agreeable to receiving home care services at this time. Patient was given choice of home care agencies available in the area and is agreeable to having referrals made with agencies that staff the patients service location. Referrals have been sent via [employer]. Liaison to discuss available agencies to accept case with patient upon receiving responses. [facility] HospitalErvbzc11-89-6853 Hospital course Narrative* Tamara Turcios MD - [...] Your Medications These medications were sent to [facility] [address] [place] [address] Hours: Saturday to Saturday 10 am to 6 pm polyethylene glycol (PEG) 3350 17 g packet rivaroxaban 20 MG tablet senna-docusate sodium 8.6-50 MG tablet tamsulosin 0.4 MG 24 hr capsule DIET: Adult diet Regular ACTIVITY: No restriction. COMPLEXITY OF FOLLOW UP: [x] Moderate Complexity: follow up within 7-14 calendar days ([address]) [] Severe Complexity: follow up within 7 calendar days ([address]) FOLLOW UP TESTING, PENDING RESULTS OR REFERRALS AT TRANSITIONAL CARE VISIT: [] Yes [x] No PENDING STUDIES: none DISPOSITION: Home FACILITY/HOME CARE AGENCY NAME: Follow up with Cheryl Basilio MD [address] [place] [address] [address] [facility] [address] Schedule an appointment as soon as possible [...] MD 10/16/2022, 2:01 PM documented in this [facility]08-22-2023 History of Present illness Narrative* Tamara Turcios MD - 10/16/2022 12:07 PM EDT Images from the original note were not included. Hospitalist Progress Note 10/16/2022 2135-1112: Please secure chat me on patient care issues. [phone]: Please secure chat [facility] Hospitalist for any issues. Subjective: Admit Date: 10/12/2022 PCP: Cheryl Basilio MD Room#: B4-790/B4-564 A CHIEF COMPLAINT: DVT left LLE Interval History: No overnight issues. Denies chest pain, sob, abdominal pain, nausea, vomiting, diarrhea, constipation, fevers, or chills. Adult diet Regular @IXRT6SULCJS@ 24HR INTAKE/OUTPUT: No intake or output data [...] Emergency Contact: Maury Queen Mobile Relation: Child Superintendent Distribution needed? No Secondary Emergency Contact: Isa Jiang Mobile Relation: Other Tamara Turcios MD Division of Hospitalist Medicine [facility] PAGER: Epic chat * Percy De La Rosa, PT - 10/16/2022 9:52 AM EDT Physical Therapy Facility/Department: [facility] Physical Therapy Initial Evaluation NAME: Corrie [...] Medium Complexity History: extensive LLE DVT Exam: [facility] Clinical Presentation: Pt admitted 10/12 with [...] 12:50 PM EDT Hospitalist Progress Note 10/15/2022 4732-7716: Please secure chat me for patient care issues. [phone]: Please secure chat [facility] Hospitalist for any issues. Subjective: Admit Date: 10/12/2022 PCP: Leanne Perales MD Room#: B4450/H4-741 A Interval History: Sudden onset of severe EARLY and blurry vision. No limb weakness. He denies chest pain, sob, abdominal pain, nausea, vomiting, diarrhea, fevers, or chills. Tolerating diet. Still no good bowel movement yet. D/w pt and family at bedside and RN separately. D/w Danelle, BROKERAGE OFFICE MANAGER RN separately also. Adult diet Regular @DZWS6TSVUTU@ 24HR INTAKE/OUTPUT: Intake/Output Summary (Last 24 hours) [...] Emergency Contact: Maury Queen Mobile Relation: Child Superintendent Distribution needed? No Secondary Emergency Contact: Isa Jiang Mobile Relation: Other BHASKAR REYES MD Division of Hospitalist Medicine [facility] PAGER: Epic chat * Bhaskar Reyes MD - 10/14/2022 1:26 PM EDT Images from the original note were not included. Hospitalist Progress Note 10/14/[phone]: Please secure chat me for patient care issues. : Please secure chat [facility] Hospitalist for any issues. Subjective: Admit Date: 10/12/2022 PCP: Leanne Perales MD Room#: B4-526/B4-749 A Interval History: Constipated. LLE with continued pain and swelling. Some difficulty ambulating. Hedenies chest pain, sob, abdominal pain, nausea, vomiting, diarrhea, fevers, or chills. Tolerating diet. D/w pt and RN at bedside. D/w Dr Cooper separately via secure chat. Adult diet Regular @DEAL3CNEMMC@ 24HR INTAKE/OUTPUT: Intake/Output Summary (Last 24 hours) [...] Primary Emergency Contact: EvangelistMaury Mobile Relation: Child Superintendent Distribution needed? No Secondary Emergency Contact: Isa Jiang Mobile Relation: Other BHASKAR REYES MD Division of Hospitalist Medicine Acute care [facility] PAGER: Epic chat * Tegan Murry - 10/14/2022 9:14 AM EDT Nutrition rescreen completed. Patient assigned a level 1. documented in this [facility]08-22-2023 Note* Care Coordination - Natacha Deluna [...] nurse of this. [facility] with no assistive devices required. [facility] HospitalNcshlh42-98-0985 Note* Care Coordination - Natacha Deluna RN [...] nurse of this. Was evaluated by [facility] with no assistive devices required. [facility] HospitalIxrjqt64-58-3253 Note* Care Coordination - Natacha Deluna RN - 10/16/2022 6:45 AM EDT Images from the original note were not included. Care Management Progress Note Spoke with [facility] yesterday afternoon. They are [...] Stay (Days): 4 GMLOS: 3.0 . [facility] HospitalPcaffd39-20-7837 Note* Care Coordination - Natacha Deluna RN - 10/16/2022 6:45 AM EDT Images from the original note were not included. Care Management Progress Note Spoke with [facility] pharmacy yesterday afternoon. They are [...] Stay (Days): 4 GMLOS: 3.0 . [facility] HospitalNcvflu57-88-4092 History of Present illness Narrative* Aenl Rubin LPN - 10/15/2022 10:31 PM EDT Chart reviewed of ED follow up Seen in [facility] ED on 10/12/22 Reason: leg pain Discharge instructions: Asked Dr. Perales about renewing your anticoagulation medicine and how long you will need to be on the medicine. PATIENT REFERRED TO: Leanne Perales MD [address] [place] [address] [place] [phone] In 1 week Pt admitted to [facility] 4S Telemetryfor complaint of leg pain. Admitting DX was acute deep vein thrombosis of left lower extremity and ambulatory dysfunction.. * Anel Rubin LPN - 10/15/2022 10:31 PM EDT Was notified per Dr. Bruce office that patient no longer follows Dr. Perales, he follows Dr. Cheryl Basilio. documented in this [facility]08-21-2023 Note* Care Coordination - LEIGH Goldstein - 10/15/2022 3:19 PM EDT S/W, follow up TCC did message that Dr. Gray office will do the prior auth on Xarelto. Doctors HospitalHokwhe87-13-7934 Note* Care Coordination - LEIGH Goldstein - 10/15/2022 3:19 PM EDT S/W, follow up TCC did message that Dr. Gray office will do the prior auth on Xarelto. [facility] HospitalFuwvbb50-02-1055 Note* Rapid Response Note - Danelle Louis [...] Dr Reyes orders a head CT Doctors HospitalAmcmgy44-62-7763 Note* Rapid Response Note - Danelle Louis [...] Dr Reyes orders a head CT Doctors HospitalEctdun79-33-7824 Note* Care Coordination - Natacha Deluna RN - 10/15/2022 12:34 PM EDT Did call and speak with Xiomara from [facility] pharmacy and requested that PA be initiated onxarelto. She will contact [facility] once obtained. Updated attending of this. Doctors HospitalRyapyt79-80-6359 Note* Care Coordination - Natacha Deluna RN - 10/15/2022 12:34 PM EDT Did call and speak with Xiomara from [facility] and requested that PA be initiated onxarelto. She will contact [facility] once obtained. Updated attending of this. [place] [address]Asflsn19-51-7698 Note* Care Coordination - Natacha Deluna RN - 10/15/2022 9:34 AM EDT Per meds to beds xarelto will require PA [phone]. Doctors HospitalMojbyp27-06-4642 Note* Care Coordination - Natacha Deluna RN - 10/15/2022 9:34 AM EDT Per meds to beds xarelto will require PA [phone]. Doctors HospitalKuuvxe59-92-9474 Note* Care Coordination - Natacha Deluna RN - 10/15/2022 6:33 AM EDT Images from the original note were not included. Care Management Progress Note Family picked up first 30 days worth of xarelto from [facility](free with coupon). Awaiting call from meds [...] (Days): 3 GMLOS: No GMLOS Documented Doctors HospitalAshmmv96-17-5704 Note* Care Coordination - Natacha Deluna RN - 10/15/2022 6:33 AM EDT Images from the original note were not included. Care Management Progress Note Family picked up first 30 days worth of xarelto from [facility] in [place](free with coupon). Awaiting call from meds to [...] (Days): 3 GMLOS: No GMLOS Documented [facility] Paydfl86-33-4216 Note* Care Coordination - Natacha Deluna RN - 10/14/2022 4:53 PM EDT Did epic chat Dr. Reyes regarding xarelto script sent from ER only being for 10 day supply. He sent over new script for 30 day supply to [facility] in [place]. Called and spoke with pharmacist at [facility] and 30 day script has already been picked up by patient's brother in law and 10 day script was cancelled. Patient did not accrue any charge for his 30 day script. . [facility] Vzxzpg99-15-3194 Note* Care Coordination - Natacha Deluna RN - 10/14/2022 4:53 PM EDT Did epic chat Dr. Reyes regarding xarelto script sent from ER only being for 10 day supply. He sent over new script for 30 day supply to [facility] in [place]. Called and spoke with pharmacist at [facility] and 30 day script has already been picked up by patient's brother in law and 10 day script was cancelled. Patient did not accrue any charge for his 30 day script. . Doctors HospitalZruwlq82-56-1477 Plan of care note* Care Plan - [...] tolerate. Patient given warm prune juice. Doctors HospitalZxkkfl23-72-5742 Consult note* Juan José Obando MD - 10/14/2022 10:55 AM EDT Images from the original note were not included. Juan José Cooper MD [facility] Hematology/Oncology - [facility] [address] [address] Dept: [phone] Dept PROBLEM LIST: 1.LLE DVT (provoked) -10/12/22 [...] etc). Pt requests to be seen at [facility] so I have our office [...] patient was diagnosed with a DVT at [place] emergency room and sent home with Xarelto. However he cannot afford the co-pay and went back to the emergency room at [place] before beingadmitted to [place]. Also of note, the patient was admitted from September 17 through September 23, 2022 with multidrug-resistant UTI/right pyelonephritis. He was prescribed a course of IV antibiotics to be completed on September 26, [address] to [place] and back , returning just about 1 [...] No fever, chills, night sweats, weight loss ANDROID DEVELOPER: No blurry vision , headaches, focal neurologic [...] recognition and may contain minor errors in bin worker. Attending Attestation Note: I have personally performed a face to face diagnostic evaluation on this patient on 10/14/22 . I spent the 75 min visit with patient , discussing case w/ primary MD, counseling patient/documenting and coordinating care regarding diagnosis, workup/testing, treatment as well as answering questions. Juan José Cooper MD [facility] Phone: 1(331) 123-634108-20-2023 Consult note* Juan José Obando MD - 10/14/2022 10:55 AM EDT Images from the original note were not included. Juan José Cooper MD [facility] Hematology/Oncology - [facility] [address] [place] [id number] Dept: [phone] Dept PROBLEM LIST: 1.LLE DVT (provoked) -10/12/22 [...] etc). Pt requests to be seen at [facility] so I have our office [...] patient was diagnosed with a DVT at [place] emergency room and sent home with Skyrelto. However he cannot afford the co-pay and went back to the emergency room at [place] before beingadmitted to [facility]. Also of note, the patient was admitted from September 17 through September 23, 2022 with multidrug-resistant UTI/right pyelonephritis. He was prescribed a course of IV antibiotics to be completed on September 26, [address] to [place] and back , returning just about 1 [...] No fever, chills, night sweats, weight loss ANDROID DEVELOPER: No blurry vision , headaches, focal neurologic [...] recognition and may contain minor errors in bin worker. Attending Attestation Note: I have personally performed a face to face diagnostic evaluation on this patient on 10/14/22 . I spent the 75 min visit with patient , discussing case w/ primary MD, counseling patient/documenting and coordinating care regarding diagnosis, workup/testing, treatment as well as answering questions. Juan José Cooper MD documented in this [facility]08-19-2023 Plan of care note* Care Plan [...] rest , color and pain improves. Doctors HospitalVxvfna81-05-0032 Note* Care Coordination - Natacha Deluna RN - 10/13/2022 3:56 PM EDT Called jayson lowry in [place]. Xarelto script does require PA. Had pharmacist run without insurance and only use FREE 30 day copay card and was able to go through with no cost. Returned to patient's room. Met with he and his daughter Isa. Apologized for earlier misunderstanding. Explained thathad spoken to jayson lowry in [place] and his xarelto had gone through with [...] and daughter requesting to speak with supervisor painting department about separate incident. Forest Fire Prevention Manager updated. Discharge plan is home when medically stable. [facility] [id number] Note* Care Coordination - Natacha Deluna RN - 10/13/2022 3:56 PM EDT Called jayson lowry in [place]. Xarelto script does require PA. Had pharmacist run without insurance and only use FREE 30 day copay card and was able to go through with no cost. Returned to patient's room. Met with he and his daughter Isa. Apologized for earlier misunderstanding. Explained thathad spoken to jayson lowry in [place] and his xarelto had gone through with [...] and daughter requesting to speak with supervisor painting department about separate incident. Forest Fire Prevention Manager updated. Discharge plan is home when medically stable. [facility] HospitalXvwxgo39-29-4418 Note* Care Coordination - Natacha Deluna RN - 10/13/2022 3:50 PM EDT Care Managment Initial Assessment Date: 10/13/2022 Patient Name: Corrie Queen : 1960 Patient Information Source of Information: Patient Name/Contact Information: ISA HENSLEY [phone] DAUGHTER MAURY QUEEN DAUGHTER [phone] Cognition/Language: WFL - Within Functional Limits Permission given to speak with patient internet sales representative/caregiver as indicated: Yes Confirmation of [...] Coverage: Yes Pharmacy Used: [facility] [place] Medication Management: Independent Transportation/Shopping: Independent Transportation Mode: [...] consulted. Daily labs. Spoke with attending via [employer] chat and wanted to know costs of [...] stated we were no different here from [facility] and he wanted to speak with the doctor. He threw off his blankets and stated he was out of here. Did update primary care nurse and attending... Natacha Deluna RN [facility] HospitalYbeykl23-49-5399 Note* Care Coordination - Natacha Deluna RN - 10/13/2022 3:50 PM EDT Care Managment Initial Assessment Date: 10/13/2022 Patient Name: Corrie Queen : 1960 Patient Information Source of Information: Patient Name/Contact Information: ISA HENSLEY [phone] DAUGHTER MAURY QUEEN DAUGHTER [phone] Cognition/Language: WFL - Within Functional Limits Permission given to speak with patient internet sales representative/caregiver as indicated: Yes Confirmation of Payer with patient/family: Yes Payer Name: MMO [place]: No Confirmation of Primary Care Physician: Confirmed [...] Coverage: Yes Pharmacy Used: [facility] [place] Medication Management: Independent Transportation/Shopping: Independent Transportation Mode: [...] consulted. Daily labs. Spoke with attending via [employer] chat and wanted to know costs of [...] stated we were no different here from [facility] and he wanted to speak with the doctor. He threw off his blankets and stated he was out of here. Did update primary care nurse and attending... Natacha Deluna RN [facility] HospitalCxqukc55-34-7567 Note* Significant Event - Bhaskar Reyes MD - 10/13/2022 3:26 PM EDT Seen and examined. Chart/labs/tests reviewed. D/w pt and family at bedside and RN and CM separately. Please see H&P done by Dr Allison earlier today for complete details. [facility] HospitalKczujc71-68-1797 Note* Significant Event - Bhaskar Reyes MD - 10/13/2022 3:26 PM EDT Seen and examined. Chart/labs/tests reviewed. D/w pt and family at bedside and RN and CM separately. Please see H&P done by Dr Allison earlier today for complete details. [facility] HospitalZamngs85-72-4257 History and physical note* Yared Allison MD - 10/13/2022 3:55 AM EDT Images from the original note were not included. History and Physical [facility] : 1960 AGE 62 y.o. YEARS Note [...] and had pain He then went to [facility] He was diagnosed with a dvt and then he was started on lovenox and then sent home on xarelto However when he went to get the prescription filled, he reports is was $300 and he could not affordto get it filled Since he could not get it filled, he had not way to treat himself and he went back to [place] He recently travelled to [place] and was driving for about 14 hours [...] He has had a truck trip to [place] which is [address] recently is his only precipitating factor he denies any other clotting disorders in the past He was seen at [place] ultrasound was done he was discharged on Xarelto unfortunately I think it might require preauthorization where the nmf-tw-kjwtyw expense for prescription was $300 she could [...] to due risk bleed/procedure 10/13/2022 Corrie Queen [id number] Any scheduled follow up appointments Future Appointments Date Time Provider Department Center 12/11/2022 9:[address] [facility] URO BAR None 01/02/2023 10:40 AM Rocio Ruiz MD [facility] SB END None 01/30/2023 10:00 AM Donna Roberts DO [facility] MMC PUL None 02/14/2023 7:30 AM [facility] 04/12/2023 8:00 AM Ziggy Frazier MD [facility] Extended Emergency Contact Information Primary Emergency Contact: Maury Queen Mobile Relation: Child Superintendent Distribution needed? No Secondary Emergency Contact: Isa Jiang Mobile Relation: Other Portions of this note may be electronically transcribed. Please forward a copy of this H&P to the primary care physician. [employer] Work Phone: 1(103) 484-536908-19-2023 History and physical note* Yared Allison MD - 10/13/2022 3:55 AM EDT Images from the original note were not included. History and Physical [facility] Corrie Queen : 1960 AGE 62 y.o. [...] and had pain He then went to [facility] He was diagnosed with a dvt and then he was started on lovenox and then sent home on xarelto However when he went to get the prescription filled, he reports is was $300 and he could not affordto get it filled Since he could not get it filled, he had not way to treat himself and he went back to the [facility] He recently travelled to [place] and was driving for about 14 hours [...] He has had a truck trip to [place] which is [address] recently is his only precipitating factor he denies any other clotting disorders in the past He was seen at [place] ultrasound was done he was discharged on Xarelto unfortunately I think it might require preauthorization where the ayz-yb-exwzsj expense for prescription was $300 she could [...] to due risk bleed/procedure 10/13/2022 Corrie Queen [id number] Any scheduled follow up appointments Future Appointments Date Time Provider Department Center 12/11/2022 9:20 AM Garrison Garza MD [facility] URO BAR None 01/02/2023 10:40 AM Rocio Ruiz MD [facility] END None 01/30/2023 10:00 AM Donna Roberts DO [facility] MMC PUL None 02/14/2023 7:30 AM Leanne Perales MD [facility] 04/12/2023 8:00 AM Ziggy Frazier MD [facility] Extended Emergency Contact Information Primary Emergency Contact: Maury Queen Mobile Relation: Child Superintendent Distribution needed? No Secondary Emergency Contact: Lucius Jianghanie Mobile Relation: Other Portions of this note may be electronically transcribed. Please forward a copy of this H&P to the primary care physician. documented in this [facility]08-18-2023 Emergency department Note* Ziggy Barron RN - 10/12/2022 9:40 PM EDT Pt and his daughter agreeable to transport via automobile to [facility]. Report called to [place] [address] [address] nurse. Ziggy Barron RN 10/12/222146 [facility] HospitalHjjmsc19-76-4983 Emergency department Note* Ziggy Barron RN - 10/12/2022 9:40 PM EDT Pt and his daughter agreeable to transport via automobile to [facility]. Report called to [place] [address] [address] nurse. Ziggy Barron RN 10/12/222146 * [...] is ambulatory. Pt a/ox3 documented in this [facility]08-18-2023 Emergency department Triage note* Ziggy Barron RN - 10/12/2022 7:42 PM EDT Pt to room 4 via wheelchair with c/o left leg pain and swelling which onset was 5pm. Pt was seen earlier today and discharged but was later decided he was uncomfortable being on his own because he iscurrently wheelchair bound when he normally is ambulatory. Pt a/ox3 [facility] HospitalPyjqzg86-96-4371 Physician Emergency department Note* Natacha Frankel DO [...] Medicine Provider Natacha Frankel DO 10/12/222121 [facility] HospitalFukapr19-60-2737 Hospital Discharge instructions* Discharge Instructions* Pacheco Negron MD - 10/12/2022 3:[address] Perales about renewing your anticoagulation medicine and how long you will need to be on the medicine. * Attachments The following attachments cannot be sent through Care Everywhere. * Deep Vein Thrombosis (Blood Clot in the Legs) (Dominican) * Going Home on Blood Thinners (Dominican) documented in this [facility]08-18-2023 Emergency department Note* Lauren Del Angel RN - 10/12/2022 1:23 PM EDT Physician at bedside Lauren Del Angel RN 10/12/22 1538 [address]62-94-9173 Emergency department Note* Lauren Del Angel RN - 10/12/2022 1:23 PM EDT Pt medicated for pain prior to discharge d/t increased pain. Lauren Del Angel RN 10/12/22 [address]49-25-0867 Emergency department Note* Pacheco Negron MD - [...] retention and infection. Recently drove home from [place]. States he is adopted but his biologic [...] PM PATIENT REFERRED TO: Leanne Perales MD [address] [place] [address] [address] [facility] [address] In 1 week DISCHARGE MEDICATIONS: New Prescriptions [...] Emergency Medicine Provider Pacheco Negron MD 10/12/22 9854 Addendum 5:54 PM received call from patient [...] MD 10/12/22 1755 Pacheco Negron MD 10/12/22 1751 * Lauren Del Angel RN - 10/12/2022 [...] states he was recently discharged from hospital [facility] and then informs that he did recently drive home from [place] and returned last week. * Lauren Del Angel RN - 10/12/2022 1:23 PM EDT Physician at bedside Lauren Del Angel RN 10/12/22 1538 * Lauren Del Angel RN - 10/12/2022 1:23 PM EDT Pt medicated for pain prior to discharge d/t increased pain. Lauren Del Angel RN 10/12/22 1622 documented in this [facility]08-18-2023 Emergency department Triage note* Lauren Del [...] states he was recently discharged from hospital [facility] and then informs that he did recently drive home from [place] and returned last week. [facility] HospitalCylbwr06-34-4661 Physician Emergency department Note* Pacheco Negron MD [...] retention and infection. Recently drove home from [place]. States he is adopted but his biologic [...] PM PATIENT REFERRED TO: Leanne Perales MD [address] [place] [address], [address] [place] [phone] In 1 week DISCHARGE MEDICATIONS: New Prescriptions [...] MD 10/12/221754 Pacheco Negron MD 10/12/221757 [facility] HospitalWmfxur95-57-2242 History of Present illness Narrative* Cheryl Basilio MD - 10/11/2022 8:20 AM EDT Images from the original note were not included. [facility] INTERNAL MEDICINE [address] [facility] [facility] [address] Dept: [phone] Dept Loc: [phone] Visit type: New patient Reason for Visit: New Patient ([facility]) Assessment and Plan 1. Recurrent [...] alert. Cheryl Basilio MD documented in this [facility]08-16-2023 History of Present illness Narrative* Donna [...] pleural effusion. 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 Most recently he traveled to [place], and 10/02 2022, had sharp pain in [...] history. We evaluated his bilateral chest with gdmyh-me-cwyo ultrasound and no significant or complicated pleural effusions were detected. Patient denies any significant respiratory limitations at this time, and able to form all activities of daily living without limitation. He is planning upcoming trip again to [place] for [employer] and [employer] concerts, and feels at baseline at this [...] incidentally trace noted on outside CT in [place]. No evidence of recurrence on physical exam and uaktn-uf-nets ultrasound. History of recent hospitalization, ESBL recurrent [...] Review Audit Reviewed by Danae Dudley MA (Cargo Station Worker) on 10/10/22 at 1242 Medication Order Taking? Sig Documenting Provider Last Dose Status cabergoline (Dostinex) 0.5 MG tablet [id number] Yes take 1 1/2 tablet by mouth ON SATURDAY AND SATURDAY Leanne Perales MD Taking Active fenofibrate (Triglide) 160 MG tablet [id number] Yes take 1 tablet by mouth once daily Tayler Rivas APRN - BHAVNA Taking Active levothyroxine (Synthroid, Levoxyl) 100 MCG tablet [id number] Yes Take 1 tablet (100 mcg) by mouth daily. Rocio Ruiz MD Taking Active niacin (Niaspan) 1000 MG ER tablet [id number] Yes Take 1 tablet (1,000 mg) by mouth daily. Leanne Perales MD Taking Active rosuvastatin (Crestor) 10 MG tablet [id number] Yes Take 1 tablet (10 mg) by mouth daily. Leanne Perales MD Taking Active tadalafil (Cialis) 20 MG tablet [id number] Yes Take 1 tablet (20 mg) by mouth Daily as needed for erectile dysfunction. Tayler Rivas APRN - BHAVNA Taking Active tamsulosin (Flomax) 0.4 MG 24 hr capsule [id number] Yes Take 1 capsule (0.4 mg) by [...] Results: No results found for: FEV1, FVC, MWE0VTG, TLC, DLCO Orders Placed This Encounter Procedures [...] pre and post bronchodilator documented in this [facility]08-16-2023 Instructions* Patient Instructions* Danae Dudley MA - 10/10/2022 1:00 PM EDT YOUR APPOINTMENT TODAY WAS WITH THE [facility] LUNG NODULE [facility], COPD CLINIC, PULMONARY AND SLEEP MEDICINE OFFICE. PLEASE CALL OUR OFFICE AT [phone] IF YOU HAVE NOT RECEIVED YOUR TEST [...] to make improvements. COVID-19 VACCINATION INFORMATION: PH. [phone] HEALTH.ORG/CORONAVIRUS/VACCINE [facility] Central Scheduling [phone] [facility] Sleep Scheduling [phone] documented in this [facility]07-23-2023 Telephone encounter Note* Telephone Encounter - FELISHA Naylor CNP - 09/16/2022 12:34 PM EDT Reviewed urine culture results with patient. Urine culture resistant to multiple organisms. Stop cephalexin started recently and start nitrofurantoin 100 mg twice daily x 7 days. [facility] HospitalOagfmk46-75-7638 Miscellaneous Notes* Telephone Encounter - FELISHA Naylor CNP - 09/16/2022 12:34 PM EDT Reviewed urine culture results with patient. Urine culture resistant to multiple organisms. Stop cephalexin started recently and start nitrofurantoin 100 mg twice daily x 7 days. documented in this [facility]07-20-2023 Evaluation + Plan note* Assessment & [...] fever, chills, n/v. Increased flank pain [facility] HospitalDrjlxo31-59-5163 Miscellaneous Notes* Assessment & Plan Note - FELISHA Naylor CNP - 09/13/2022 12:57 PM EDTAssociated Problem(s): Urinary tract infection symptoms UA trace blood, + leukocytes. Send for culture. We will wait for urine culture results. No fever orchills. CT of abd/pelvis next week. Has bee referred to urology. Go to ER for development of fever, chills, n/v. Increased flank pain documented in this [facility]07-20-2023 History of Present illness Narrative* Paloma [...] CNP 09/13/2022 11:54 AM documented in this [facility]07-20-2023 Instructions* Patient Instructions* FELISHA Naylor CNP - 09/13/2022 11:40 AM EDT I will call you on Saturday to update on urine culture. documented in this [facility]06-28-2023 Telephone encounter Note* Telephone Encounter - Nelli Lama MA - 08/22/2022 1:29 PM EDT Prescription Request: Last medication check: 08/03/21 Last physical exam: 02/06/22 Next scheduled appointment: 02/14/23 Last date of refill on this medication 04/04/22 36 tablets 1 refill [facility] HospitalKuxwkl65-58-1776 Miscellaneous Notes* Telephone Encounter - Nelli Lama MA - 08/22/2022 1:29 PM EDT Prescription Request: Last medication check: 08/03/21 Last physical exam: 02/06/22 Next scheduled appointment: 02/14/23 Last date of refill on this medication 04/04/22 36 tablets 1 refill documented in [facility] [place]Wqubsx20-96-2643 History of Present illness Narrative* Tayler Rivas APRN - CLINICAL PROJECT LEADER - 08/17/2022 8:20 AM EDT Images from [...] CNP 08/17/2022 8:44 AM documented in this [facility]06-23-2023 History of Present illness Narrative* FELISHA [...] CNP 08/17/2022 8:44 AM documented in this [facility]06-23-2023 Miscellaneous Notes* Addendum Note - FELISHA Jeronimo CNP - 08/17/2022 8:20 AM EDTAddended by: TAYLER RIVAS on: 08/20/2022 09:36 AM Modules accepted: Orders documented in this [facility]06-23-2023 Note* Addendum Note - FELISHA Jeronimo CNP - 08/17/2022 8:20 AM EDTAddended by: TAYLER RIVAS on: 08/20/2022 09:36 AM Modules accepted: Orders [facility] HospitalOkwque38-14-4896 Telephone encounter Note* Telephone Encounter - FELISHA Jeronimo CNP - 07/04/2022 3:57 PM EDT Rx sent. Follow up as scheduled. [facility] HospitalJxwlqw83-76-9113 Miscellaneous Notes* Telephone Encounter - FELISHA Jeronimo [...] on this medication 10/16/21 documented in this [facility]05-10-2023 Telephone encounter Note* Telephone Encounter - Mary Garcia MA - 07/04/2022 3:20 PM EDT Prescription Request: Last medication check: 08/03/21 Last physical exam: 02/06/22 Next scheduled appointment: 08/06/22 CSA on file (date): na Last urine drug screen: na Last date of refill on this medication 10/16/21 [facility] [id number] Evaluation + Plan note* Assessment & Plan Note - Leanne Perales MD - 06/19/2022 4:16 PM EDTAssociated Problem(s): Combined arterial insufficiency and corporo-venous occlusive erectile dysfunction Prescription for Cialis 20 mg printed so he can shop around for the best ruiz. [place] [id number] Miscellaneous Notes* Assessment & Plan Note - Leanne Perales MD - 06/19/2022 4:16 PM EDTAssociated Problem(s): Combined arterial insufficiency and corporo-venous occlusive erectile dysfunction Prescription for Cialis 20 mg printed so he can shop around for the best ruiz. documented in this [place] [address]-25-2023 Miscellaneous Notes* Assessment & Plan Note - [...] accepted: Level of Service documented in this [place] [address]-25-2023 History of Present illness Narrative* Nelly Correia MA - 06/19/2022 1:45 PM EDT Patient verified by last name and date of . Patient wants a nurse navigator in the room during during the visit. no Screw Machine Tool Setter na * Leanne Perales MD - 06/19/2022 [...] MD 06/19/2022 4:17 PM documented in this [facility]04-25-2023 History of Present illness Narrative* Nelly Correia MA - 06/19/2022 1:45 PM EDT Patient verified by last name and date of . Patient wants a nurse navigator in the room during during the visit. no Screw Machine Tool Setter na * Leanne Perales MD - 06/19/2022 [...] MD 06/21/2022 3:52 PM documented in this [facility]04-25-2023 Note* Addendum Note - Leanne Perales MD - 06/19/2022 1:45 PM EDTAddended by: LEANNE PERALES on: 06/21/2022 03:52 PM Modules accepted: Level of Service [facility] HospitalLureqi15-95-6495 Evaluation + Plan note* Assessment & Plan Note - Leanne Perales MD - 05/17/2022 12:42 PM EDTAssociated Problem(s): Right flank pain Recurrent flank pain. Urinalysis shows trace of blood and leukocytes, will send for culture and start him on Bactrim. [facility] HospitalYvouvc62-85-8822 Miscellaneous Notes* Assessment & Plan Note - Leanne Perales MD - 05/17/2022 12:42 PM EDTAssociated Problem(s): Right flank pain Recurrent flank pain. Urinalysis shows trace of blood and leukocytes, will send for culture and start him on Bactrim. documented in this [facility]03-23-2023 History of Present illness Narrative* Paloma Holland - 05/17/2022 11:45 AM EDT Screw Machine Tool Setter for Intimate and Non Intimate Exam Screw Machine Tool Setter was declined Screw Machine Tool Setter: na * Leanne Perales MD - 05/17/2022 [...] MD 05/17/2022 12:43 PM documented in this [facility]02-02-2023 Telephone encounter Note* Telephone Encounter - Chana Mckoy - 03/29/2022 4:39 PM EST Order closed [facility] HospitalAullal23-11-0778 Miscellaneous Notes* Telephone Encounter - Chana Mckoy [...] to Patient: pt Provider: Practice: [facility] [place] Chief Complaint/Reason for Call: Caller is stating that [facility] Auth for CT has been denied please ref [id number] as they will also be sending a fax Best time of day caller can be reached: any Patient advised that office/PCP has 24-48 business hours to return their call: No documented in this encounterSSelect [facility] [place]Zsgrah01-59-6876 Telephone encounter Note* Telephone Encounter - Leanne Perales MD - 03/27/2022 3:21 PM EST Okay, thank you okay to cancel the CT scan [facility] HospitalFowvzk30-60-3228 Miscellaneous Notes* Telephone Encounter - Leanne Perales [...] Relationship to Patient: pt Provider: Practice: [facility] [place] Chief Complaint/Reason for Call: Caller is stating that Priour Auth for CT has been denied please ref [id number] as they will also be sending a fax Best time of day caller can be reached: any Patient advised that office/PCP has 24-48 business hours to return their call: No documented in this [facility]01-31-2023 Telephone encounter Note* Telephone Encounter - Nelli Lama - 03/27/2022 3:01 PM EST Patient notified, said he is not having any pain right now and doesn't think physical therapy is necessary. [facility] HospitalTnlifz15-57-1650 Note* Addendum Note - Leanne Perales MD - 03/27/2022 1:05 PM ESTAddended by: LEANNE PERALES on: 03/27/2022 01:05 PM Modules accepted: Orders [facility] HospitalCxtfxm71-66-0404 Note* Addendum Note - Leanne Perales MD - 03/27/2022 1:05 PM ESTAddended by: LEANNE PERALES on: 03/27/2022 01:05 PM Modules accepted: Orders [facility] HospitalGquxxd19-85-6164 Note* Addendum Note - Leanne Perales MD - 03/27/2022 1:05 PM ESTAddended by: LEANNE PERALES on: 03/27/2022 01:05 PM Modules accepted: Orders [address]31-2023 Note* Addendum Note - Leanne Perales MD - 03/27/2022 1:05 PM ESTAddended by: LEANNE PERALES on: 03/27/2022 01:05 PM Modules accepted: Orders [address]Fabxax89-09-5386 Note* Addendum Note - Leanne Perales MD - 03/27/2022 1:05 PM ESTAddended by: LEANNE PERALES on: 03/27/2022 01:05 PM Modules accepted: Orders [facility]01-31-2023 Telephone encounter Note* Telephone Encounter - Leanne Perales MD - 03/27/2022 1:03 PM EST We will need to contact patient to get him into physical therapy, referral done [facility]01-31-2023 Telephone encounter Note* Telephone Encounter - Chana Mckoy - 03/27/2022 10:15 AM EST How do you want to proceed with this denial? Okay to close orders? [facility] HospitalKloaau23-73-5147 Telephone encounter Note* Telephone Encounter - Chana [...] with your provider after completing treatment. [facility] HospitalVcbbzm07-02-0756 Miscellaneous Notes* Telephone Encounter - Chana Mckoy [...] for CT has been denied please ref [id number] as they will also be sending a fax Best time of day caller can be reached: any Patient advised that office/PCP has 24-48 business hours to return their call: No documented in this [facility]01-26-2023 Telephone encounter Note* Telephone Encounter - Chana Conroy - 03/22/2022 12:50 PM EST Name of caller: Lillian Akbar ) Contact phone number: [address] Relationship to Patient: pt Provider: Practice: [facility] Chief Complaint/Reason for Call: Caller is stating that Pri[facility] Auth for CT has been denied please ref [id number] as they will also be sending a fax Best time of day caller can be reached: any Patient advised that office/PCP has 24-48 business hours to return their call: No [facility] [id number] Miscellaneous Notes* Telephone Encounter - Chana Conroy - 03/22/2022 12:50 PM EST Name of caller: Sima( Naomie ) Contact phone number: [address] Relationship to Patient: pt Provider: Practice: [facility] Chief Complaint/Reason for Call: Caller is stating that [employer] Auth for CT has been denied please ref [id number] as they will also be sending a fax Best time of day caller can be reached: any Patient advised that office/PCP has 24-48 business hours to return their call: No documented in this [facility]01-17-2023 Telephone encounter Note* Telephone Encounter - [...] to picking up the medication: Yes [facility] [id number] Miscellaneous Notes* Telephone Encounter - Deepa Burrell [...] medication: Yes documented in [id number] Evaluation + Plan note* Assessment & Plan [...] working or driving with this medicine. [facility] [id number] Miscellaneous Notes* Assessment & Plan Note - [...] driving with this medicine. documented in this [facility]01-10-2023 Evaluation + Plan note* Assessment & [...] working or driving with this medicine. [facility] [id number] History of Present illness Narrative* Leanne Perales [...] MD 03/06/2022 3:47 PM documented in this [facility]01-03-2023 Evaluation + Plan note* Assessment & Plan Note - FELISHA Naylor CNP - 02/27/2022 5:29 PM ESTAssociated Problem(s): Essential hypertension, benign Initial reading elevated. Repeat good. Not on medications. Doctors [id number] Miscellaneous Notes* Assessment & Plan Note - [...] (has rx from prior). documented in this [facility]01-03-2023 Miscellaneous Notes* Assessment & Plan Note [...] accepted: Level of Service documented in this [facility]01-03-2023 Evaluation + Plan note* Assessment & Plan Note - FELISHA Naylor CNP - 02/27/2022 5:28 PM ESTAssociated Problem(s): Acute cystitis without hematuria Urine culture + ecoli. Sensitivity to augmentin. Will extend treatment for additional 4 days. Continue to monitor. Increase fluid intake. [facility] [id number] Evaluation + Plan note* Assessment & Plan Note - FELISHA Naylor CNP - 02/27/2022 5:27 PM ESTAssociated Problem(s): Flank pain Likely more musculoskeletal. No fever, non ill appearing. Ok for muscle relaxant (has rx from prior). [facility] [id number] History of Present illness Narrative* Paloma Holland - 02/27/2022 1:20 PM EST Screw Machine Tool Setter for Intimate and Non Intimate Exam Screw Machine Tool Setter was declined Screw Machine Tool Setter: na * FELISHA Naylor CNP - 02/27/2022 [...] CNP 02/27/2022 4:42 PM documented in this [facility]01-03-2023 History of Present illness Narrative* Paloma Holland - 02/27/2022 1:20 PM EST Screw Machine Tool Setter for Intimate and Non Intimate Exam Screw Machine Tool Setter was declined Screw Machine Tool Setter: na * FELISHA Naylor CNP - 02/27/2022 [...] CNP 02/27/2022 4:42 PM documented in this [facility]01-03-2023 Note* Addendum Note - FELISHA Naylor CNP - 02/27/2022 1:20 PM ESTAddended by: CHANA BROWN on: 02/28/2022 04:39 PM Modules accepted: Level of Service Doctors [id number] NoteHospitalist Discharge Summary Corrie Queen : 1960 [...] These medications were sent to [id number] - [address] [phone] - [phone] [place] [phone] nicotine 21 MG/24HR Recommended Follow-up: PCP, cardiology, urology outpatient in 1-2 weeks Readmission Risk Risk of Unplanned Readmission: 11 Complexity of Follow up: [] Moderate Complexity: follow up within 7-14 calendar days (86684) [x] Severe Complexity: follow up within 7 calendar days (40964) Follow up Testing, Pending results or Referrals [...] Hospitalist Medicine Inpatient Medical Services/[facility] 12/06/2021, 8:50 [facility]10-11-2022 History of Present illness Narrative* Nallely Villegas RN - 12/05/2021 8:11 PM EDT Patient has been adamant about taking his medications from home. Medications were sent down to Pharmacy to verify. Unable to scan meds because they are formulary. Notified Shikha, Motor Rebuilder on 12/04/2021 of situation. Notified Kiara Kapoor GREASE BUFFER on 12/04/2021. Patient had been threatening to leave AMA on 12/03/2021 & 12/04/2021. Patient also adamantly refusing to receive ordered IVF. Dr. Barlow notified on 12/03/2021. Kiara Kapoor GREASE BUFFER notified on 12/04/2021 Revisited situation with Shikha Motor Rebuilder on 12/05/2021. * Lorena Jama MD - 12/05/2021 8:37 AM EDT Images from the original note were not included. [facility] - Infectious Diseases Attending Progress [...] Radiography/Echo/Other: ACCESSION EXAM DATE/TIME PROCEDURE ORDERING PROVIDER [id number] 12/04/2021 10:28 EDT US Retroperitoneal KIARA BOB CPT code 95718 Reason For Exam (US Retroperitoneal Limited) R [...] care expectations & antimicrobials. * Kiara Kapoor, MANAGER CLIENT SERVICE - CLINICAL PROJECT LEADER - 12/05/2021 8:13 AM EDT Images from the original note were not included. Hospitalist Progress Note 12/05/[phone]: Please reach me on Perfect Serve patient care issues. [phone]: Please page IMS night Hospitalist for any [...] to improve FELISHA Pool CNP [facility] * Sharon Escobedo RN - 12/05/2021 6:01 AM EDT Pt still does not want IV fluids running. Has been drinking water throughout the night. * Lorena Jama MD - 12/04/2021 10:30 AM EDT Images from the original note were not included. [facility] - Infectious Diseases Attending Progress Note Subjective: [...] Radiography/Echo/Other: ACCESSION EXAM DATE/TIME PROCEDURE ORDERING PROVIDER [id number] 12/04/2021 10:28 EDT US Retroperitoneal KIARA BOB CPT code 98694 Reason For Exam (US Retroperitoneal Limited) R [...] care expectations & antimicrobials. * Kiara Kapoor, MANAGER CLIENT SERVICE - CLINICAL PROJECT LEADER - 12/04/2021 9:24 AM EDT Images from the original note were not included. Hospitalist Progress Note 12/04/2021 [phone]: Please reach me on Perfect Serve patient care issues. [phone]: Please page IMS night Hospitalist for any [...] Hospitalist Medicine Inpatient Medical Services/[facility] * Sharon Escobedo RN - 12/04/2021 7:21 [...] then stated, I would rather be in detention then be here. Patient then began to speak of his who one year ago, and was a patient on this floor. Patient requesting to see Attending and Infectious Disease. Perfectserved Dr. Barlow and Dr. Jama to notify of request. * Shane Barlow MD - 12/03/2021 7:04 AM EDT Images from the original note were not included. Hospitalist Progress Note 12/03/2021 [phone]: Please page me ([phone]) for patient care issues. [phone]: Please page [facility] night Hospitalist for any issues. [...] - BMI 30.30 Plan -Patient presents to [facility] with complaints of ongoing right flank [...] that it is worse than being in detention. Hada long conversation with him regarding the [...] Hospitalist Medicine Inpatient Medical Services/[facility] PAGER: PERFECT SERVE * Sharon Escobedo RN [...] I'm having my daughter bring me in [place]. RD provided emotionalsupport regarding pt's frustration. Nutrition [...] Anthropometric Measures: Height: 6' 2 (188 cm) [place] Body Weight (IBW): 190 lbs (86 kg) Current Body Weight: 236 lb (107 kg), IBW. Current BMI (kg/m2): 30.3 Usual Body Weight: 245 lb (111.1 kg) % Weight Change (Calculated): -3.7 Weight Adjustment For: No Adjustment BMI Categories: Obese Class 1 (BMI 30.0-34.9) Estimated Daily Nutrient Needs: Energy Requirements Based On: Kcal/kg Weight Used for Energy Requirements: [place] Energy (kcal/day): 6629-3051 (25-30 kcals/kg) Weight Used for Protein Requirements: [place] Protein (g/day): 86-103 (1.0-1.2g/kg) Method Used for [...] were not included. Hospitalist Progress Note 12/02/2021 [phone]: Please page me ([phone]) for patient care issues. [phone]: Please page [facility] night Hospitalist for any issues. Subjective: Admit Date: 12/01/2021 PCP: Leanne Perales MD Room#: 158/1586 Interval History: No overnight issues. Patient was [...] - BMI 30.30 Plan -Patient presents to [facility] with complaints of ongoing right flank [...] Hospitalist Medicine Inpatient Medical Services/[facility] PAGER: PERFECT SERVE documented in this encounterSUMMA Work Phone: [phone]) 927-437710-11-2022 Hospital Discharge instructions* Discharge Instr - Other [...] SCHNEIDERP. documented in this encounterSUMMA Work Phone: [phone]) 627-931510-03-2022 Hospital Discharge instructions* Discharge Instructions* Tc Spence MD - 11/27/2021 11:20 PM EDT Can return here for fever/vomiting; upsetting machine operator antibiotic your doctor prescribed you * Attachments The following attachments cannot be sent through Care Everywhere. * Flank Pain (Dominican) documented in this encounterSUMMA Work Phone: Consult note Author Dana Gonzales [facility] February 13, 2023 3:56pm Note Date/Time February 13, 2023 3:56pm [facility] Medical Records Department [address] [place] [address] Counseling Note - Pharmacy 02/13/23 1555 MR#: [id number] Acct: [id number] Name: CORRIE QUEEN Rep #:[id number] : 1960 62 From: Dana Gonzales PCP: CHERYL BASILIO Status:ADM TAMMY Y Location: [place] [address] Pharmacy [facility] Service has performed discharge medication reconciliation [...] Signature (if applicable): Date CC: ~ Signed [facility] Work Phone: Evaluation + Plan note Future Appointments Appointment Date:01/09/2024 09:45:00 AM Scheduled Provider:BASIM RAMSEY MD Location:[facility] Appointment Type:ENDO OV Diagnostic Tests Pending * Testosterone,Free and Total 01/03/24 [facility] Evaluation + Plan note Future Appointments Appointment Date:04/21/2024 09:00:00 AM Scheduled Provider: Location:[facility] Appointment Type:ENDO Nurse Diagnostic Tests Pending [...] Level 08/14/24 * Complete Metabolic Panel 04/16/24 [facility] Evaluation note* Diagnosis Macroprolactinoma (HCC) Benign [...] Pyelonephritis Pyelonephritis, unspecified Infection due to extended-spectrum ltvu-redsxqcwj-akwtingpl Escherichia coli Other and unspecified Escherichia coli (E. coli) Sepsis due to Escherichia coli with acute renal failure without septic shock (HCC) Unspecified abdominal pain documented in this encounter [facility] Work Phone: Evaluation note* Diagnosis Right flank pain- Primary Abdominal pain, unspecified site documented in this encounter [facility] note* Diagnosis Combined arterial insufficiency and corporo-venous occlusive erectile dysfunction- Primary [facility]* Diagnosis Combined arterial insufficiency and corporo-venous occlusive erectile dysfunction- Primary [facility]* Diagnosis Recurrent UTI- Primary Urinary tract infection, site not specified Dysuria Urinary frequency Urinary urgency Urgency of urination Chronic right-sided low back pain without sciatica Leukocytes in urine Other nonspecific finding on examination of urine Hematuria, unspecified type [facility]* Diagnosis Recurrent UTI- Primary Urinary tract infection, site not specified Dysuria Urinary frequency Urinary urgency Urgency of urination Chronic right-sided low back pain without sciatica Leukocytes in urine Other nonspecific finding on examination of urine Hematuria, unspecified type documented [facility] this encounter [facility]* Diagnosis Urinary tract infection symptoms- Primary [facility]* Diagnosis Acute cystitis without hematuria- Primary documented in this encounter [facility]* Diagnosis Pleural effusion- Primary Unspecified pleural effusion History of tobacco abuse Centrilobular emphysema (HCC) documented [facility] this encounter [facility]* Diagnosis Complex renal cyst Other specified congenital cystic kidney disease documented in this encounter [facility]* Diagnosis Recurrent UTI- Primary Urinary tract infection, site not specified Benign prostatic hyperplasia without lower urinary tract symptoms documented [facility]* Diagnosis Leg swelling- Primary Swelling of limb Acute deep vein thrombosis (DVT) of left lower extremity, unspecified vein (HCC) [facility]* Diagnosis Acute deep vein thrombosis (DVT) of left lower extremity, unspecified vein (HCC)- Primary Acute deep vein thrombosis (DVT) of left lower extremity, unspecified vein (HCC) Ambulatory dysfunction documented in this encounter [facility] note* Diagnosis Acute deep vein thrombosis (DVT) of left lower extremity, unspecified vein (HCC)- Primary Acute deep vein thrombosis (DVT) of left lower extremity, unspecified vein (HCC) documented in this encounter [facility] note* Diagnosis Acute deep vein thrombosis (DVT) of left lower extremity, unspecified vein (HCC) [facility]* Diagnosis Acute deep vein thrombosis (DVT) of left lower extremity, unspecified vein (HCC)- Primary [facility] this encounter [facility]* Diagnosis Deep vein thrombosis (DVT) of proximal vein of left lower extremity, unspecified chronicity (HCC)- Primary [facility] this encounter [facility]* Diagnosis Flank pain- Primary Abdominal pain, unspecified site 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) documented [facility] this encounter [facility]* Diagnosis Flank pain- Primary Abdominal pain, unspecified site 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) documented [facility] this encounter [facility]* Diagnosis Right flank pain Abdominal pain, unspecified site 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) documented in this encounter [facility]* Diagnosis Acute right flank pain- Primary 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) documented in this encounter [facility]* Diagnosis Sebaceous cyst of left eyelid- Primary documented in this encounter [facility]* Diagnosis Bleeding- Primary Unspecified hemorrhage documented in this encounter [facility]* Diagnosis Chronic deep vein thrombosis (DVT) of iliofemoral vein (HCC)- Primary documented [facility] this encounter [facility]* Diagnosis 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) documented in this encounter [facility]* Diagnosis Macroprolactinoma (HCC)- Primary Benign neoplasm of pituitary gland and craniopharyngeal duct (pouch) Pituitary adenoma (HCC) 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 Hypercalcemia documented in this encounter [facility]* Diagnosis Hypogonadism in male- Primary documented in this encounter [facility]* Diagnosis 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) documented in this encounter [facility]* Diagnosis Onset Date Resolution Status Ileofemoral deep vein thrombosis 2022 [facility] Work Phone: Evaluation note* Diagnosis Onset Date Resolution Status Ileofemoral deep vein thrombosis 2022 acute Ileofemoral deep vein thrombosis 2022 acute [facility] Work Phone: Evaluation note* Diagnosis Onset Date Resolution Status Deep vein thrombosis (DVT) o f iliac vein of left lower extremity chronic BPH (benign prostatic hyperplasia) acute Elevated blood pressure reading acute Fatty liver acute High cholesterol acute History of diverticulitis ac [place] History of renal disease acu te Pituitary abnormality acute Smoker acute Thyroid disease acute Deep vein thrombosis (DVT) o f iliac vein of left lower extremity chronic [facility] Work Phone: Evaluation note* Diagnosis Onset Date Resolution Status Deep vein thrombosis (DVT) o f iliac vein of left lower extremity chronic BPH (benign prostatic hyperplasia) acute Elevated blood pressure reading acute Fatty liver acute High cholesterol acute History of diverticulitis ac [place] History of renal disease acu te Pituitary abnormality acute Smoker acute Thyroid disease acute Deep vein thrombosis (DVT) o f iliac vein of left lower extremity chronic Flank pain acute History of renal disease acu te [facility] Work Phone: Evaluation note* Diagnosis Onset Date Resolution Status Ileofemoral deep vein thrombosis 2022 acute Ileofemoral deep vein thrombosis 2022 acute Deep vein thrombosis (DVT) o f iliac vein of left lower extremity chronic BPH (benign prostatic hyperplasia) acute Elevated blood pressure reading acute Fatty liver acute High cholesterol acute History of diverticulitis ac [place] History of renal disease acu te Pituitary abnormality acute Smoker acute Thyroid disease acute Deep vein thrombosis (DVT) o f iliac vein of left lower extremity chronic Flank pain acute History of renal disease acu te Flank pain acute Ileofemoral deep vein thrombosis 2022 acute [facility] Work Phone: Evaluation note* Diagnosis Onset Date Resolution Status Ileofemoral deep vein thrombosis 2022 acute Ileofemoral deep vein thrombosis 2022 acute Deep vein thrombosis (DVT) o f iliac vein of left lower extremity chronic BPH (benign prostatic hyperplasia) acute Elevated blood pressure reading acute Fatty liver acute High cholesterol acute History of diverticulitis ac [place] History of renal disease acu te Pituitary abnormality acute Smoker acute Thyroid disease acute Deep vein thrombosis (DVT) o f iliac vein of left lower extremity chronic Flank pain acute History of renal disease acu te Flank pain acute Ileofemoral deep vein thrombosis 2022 acute Flank pain acute [facility] Work Phone: Evaluation note* Diagnosis Onset Date Resolution Status Ileofemoral deep vein thrombosis 2022 acute Deep vein thrombosis (DVT) o f iliac vein of left lower extremity chronic BPH (benign prostatic hyperplasia) acute Elevated blood pressure reading acute Fatty liver acute High cholesterol acute History of diverticulitis ac [place] History of renal disease acu te Pituitary abnormality acute Smoker acute Thyroid disease acute Deep vein thrombosis (DVT) o f iliac vein of left lower extremity chronic Flank pain acute History of renal disease acu te Flank pain acute Ileofemoral deep vein thrombosis 2022 acute Flank pain acute [facility] Work Phone: Evaluation note* Diagnosis Onset Date Resolution Status Deep vein thrombosis (DVT) o f iliac vein of left lower extremity chronic BPH (benign prostatic hyperplasia) acute Elevated blood pressure reading acute Fatty liver acute High cholesterol acute History of diverticulitis ac [place] History of renal disease acu te Pituitary abnormality acute Smoker acute Thyroid disease acute Deep vein thrombosis (DVT) o f iliac vein of left lower extremity chronic Flank pain acute History of renal disease acu te Flank pain acute Ileofemoral deep vein thrombosis 2022 acute Flank pain acute [facility] Work Phone: Evaluation note* Diagnosis Pituitary adenoma (HCC)- Primary Benign neoplasm of pituitary gland and craniopharyngeal duct (pouch) Hypercalcemia 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* Diagnosis Hypogonadism in male 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) documented in this encounter [facility]* Diagnosis Pituitary adenoma (HCC) Benign neoplasm of pituitary gland and craniopharyngeal duct (pouch) documented in this encounter [facility]* Diagnosis Acute cystitis without hematuria- Primary Flank pain Abdominal pain, unspecified site Essential hypertension, benign documented in this encounter [facility]* Diagnosis Acute cystitis without hematuria- Primary Flank pain Abdominal pain, unspecified site Essential hypertension, benign documented in this encounter [facility]* Diagnosis Acute right-sided low back pain without sciatica- Primary Right flank pain Abdominal pain, unspecified site documented in this encounter [facility]* Diagnosis Complex renal cyst- Primary Other specified congenital cystic kidney disease documented in this encounter [facility] note* Diagnosis Right flank pain- Primary Abdominal pain, unspecified site Acute right-sided low back pain without sciatica documented in this encounter [facility] note* Diagnosis Right flank pain- Primary Abdominal pain, unspecified site Acute right-sided low back pain without sciatica documented in this encounter [facility] [place] course Narrative No data available for this section [facility] Hospital Discharge instructions No data available for this section [facility] Hospital Discharge instructionsAdditional Instructions Your evaluation [...] with your primary care doctor soon as possible.[facility] Work Phone: Progress note No data available for this section [facility] Reason for referral (narrative)* Consultation (Routine) - Closed Specialty Diagnoses / Procedures Referred By Contac t Referred To Contact Vascular Surgery Diagnoses Acute deep vein thrombosis (DVT) of left lower extremity, unspecified vein (HCC) Procedures OK OFFICE/OUTPATIENT [facility] 60-74 MINUTES Cheryl Basilio MD [address] [place] [address] [facility] [address] [facility] [address] [place] [address] Referral ID Status Reason Start Date Expiration Date V isits Requested Visits Authorized [id number] Closed Specialty Services Required 12/03/2022 12/03/2023 1 1 [facility] for referral (narrative)No reason for referral information availableWSt. 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 Advance Directives No Advanced Directives Records FoundDocuments on File Type Date Recorded Patient Fur Designer Expl anation Advance Directives and Living Will Power of Cabin Equipment Supervisor Latest Code Status on File Code Status [...] February 06, 2 023 8:38am Power of Cabin Equipment Supervisor No February 06, 2023 8:38am Advance Directive Response Recorded Date/ Time Living Will No February 06, 2 023 9:38am Power of Cabin Equipment Supervisor No February 06, 2023 9:38am Date Activated Date Inactivated Comments 12/25/2022 8:25 AM 12/25/2022 7:01 PM Date Activated Date Inactivated Comments 10/13/2022 4:25 AM 10/16/2022 6:08 PM Date Activated Date Inactivated Comments 09/18/2022 1:19 AM 09/23/2022 3:25 PM Advance Directive Response Recorded Date/ Time Do you have a Healthcare Power of Cabin Equipment Supervisor? No August 02, 2024 9:10am Advance Directive Response Recorded Date/ Time Do you have a Healthcare Power of Cabin Equipment Supervisor? No August 02, 2024 9:10am Do you have a Healthcare Power of Cabin Equipment Supervisor? No October 03, 2024 10:59am Advance Directive Response Recorded Date/ Time Do you have a Healthcare Power of Cabin Equipment Supervisor? No October 03, 2024 10:59am Summary Purpose [...] Donna Roberts DO [address] [place] [address] Referral ID Status Reason Start Date Expiration Date V isits Requested Visits Authorized [id number] Pending Review 10/10/2022 04/08/2023 1 1 Specialty Diagnoses / Procedures Referred By Contac t Referred To Contact Diagnoses History of tobacco abuse Centrilobular emphysema (HCC) Procedures Complete PFT pre and post bronchodilator Donna Roberts DO [address] [place] [address] Referral ID Status Reason Start Date Expiration Date V isits Requested Visits Authorized [id number] Incomplete 10/10/2022 04/08/2023 1 1 Specialty Diagnoses / Procedures Referred By Contac t Referred To Contact Diagnoses Benign prostatic hyperplasia without lower urinary tract symptoms Cheryl Basilio MD [address] [facility] [address] [place] [address] Referral ID Status Reason Start Date Expiration Date V isits Requested Visits Authorized [id number] Pending Review 1 1 Specialty Diagnoses / Procedures Referred By Contac t Referred To Contact Pacheco Negron MD [address] [place] [address] Referral ID Status Reason Start Date Expiration Date V isits Requested Visits Authorized [id number] Pending Review 1 1 Specialty Diagnoses / Procedures Referred By Contac t Referred To Contact Cardiology Diagnoses Acute deep vein thrombosis (DVT) of left lower extremity, unspecified vein (HCC) Procedures Vascular US lower extremity venous duplex bilateral Cheryl Basilio MD [address] [facility] [address] [place] [address] [facility] [address] [place] [address] Referral ID Status Reason Start Date Expiration Date Visits Re quested Visits Authorized [id number] Closed 11/14/2022 05/13/2023 1 1 Specialty Diagnoses / Procedures Referred By Contac t Referred To Contact Radiology Diagnoses Pituitary adenoma (HCC) Procedures MR pituitary w and wo IV contrast Rocio Calix MD [address] [place] [address] [address] [place] [address] Referral ID Status Reason Start Date Expiration Date V isits Requested Visits Authorized [id number] Pending Review 07/31/2023 07/30/2024 1 1 Referral ID Status Reason Start Date Expiration Date Visits Re quested Visits Authorized [id number] Closed 07/31/2023 07/30/2024 1 1 Specialty Diagnoses / Procedures Referred By Contac t Referred To Contact Radiology Diagnoses Right flank pain Acute right-sided low back pain without sciatica Procedures CT lumbar spine wo IV contrast Leanne Perales MD [facility] [place] [address] Referral ID Status Reason Start Date Expiration Date V isits Requested Visits Authorized [id number] Pending Review 03/06/2022 09/02/2022 1 1 Specialty Diagnoses / Procedures Referred By Contac t Referred To Contact Physical Therapy Diagnoses Right flank pain Acute right-sided low back pain without sciatica Procedures OK OFFICE/OUTPATIENT NEW HIGH MDM 60-74 MINUTES Leanne Perales MD [address] [facility] [place] [address] [facility] [address] [place] [address] [place] [address] Referral ID Status Reason Start Date Expiration Date Visits Requested Visits Authorized [id number] Pending Review Eval and Treat 03/27/2022 09/23/2022 [...] Provid er, Attending Provider, Referring Provider Active Environmental Consultant Relationship Specialty Start Date End [place] [address] PCP - General 11/12/15 Environmental Consultant Relationship Specialty Start Date End [place] [address] PCP - General 11/12/15 Environmental Consultant Relationship Specialty Start Date End [place] [address] PCP - General 11/12/15 Environmental Consultant Relationship Specialty Start Date End [place] [address] PCP - General 11/12/15 Environmental Consultant Relationship Specialty Start Date End [place] [address] PCP - General 11/12/15 Environmental Consultant Relationship Specialty Start Date End [place] [address] PCP - General 11/12/15 Environmental Consultant Relationship Specialty Start Date End Date Leanne Perales MD [facility] [place] [address] PCP - General 11/12/15 Environmental Consultant Relationship Specialty Start Date End [place] [address] PCP - General 11/12/15 Environmental Consultant Relationship Specialty Start Date End Date Leanne Perales MD 25 [facility] [place] [place] [address] PCP - General 11/12/15 Environmental Consultant Relationship Specialty Start Date End Date Leanne Perales MD 25 [facility] [place] [address] PCP - General 11/12/15 Environmental Consultant Relationship Specialty Start Date End Date Leanne Perales MD 25 [facility] [place] [address] PCP - General 11/12/15 Environmental Consultant Relationship Specialty Start Date End Date Leanne Perales MD 25 [facility] [place] [address] PCP - General 11/12/15 Environmental Consultant Relationship Specialty Start Date End Date Leanne Perales MD 25 [facility] [place] [place] [address] PCP - General 11/12/15 Environmental Consultant Relationship Specialty Start Date End Date Leanne Perales MD 25 [facility] [place] [place] [address] PCP - General 11/12/15 Environmental Consultant Relationship Specialty Start Date End Date Leanne Perales MD 25 [facility] [place] [place] [address] PCP - General 11/12/15 Environmental Consultant Relationship Specialty Start Date End Date Leanne Perales MD 25 [place] [address] PCP - General 11/12/15 Environmental Consultant Relationship Specialty Start Date End Date Leanne Perales MD [facility] [place] [address] PCP - General 11/12/15 Environmental Consultant Relationship Specialty Start Date End Date Leanne Perales MD [facility] [place] [address] PCP - General 11/12/15 Environmental Consultant Relationship Specialty Start Date End [place] [address] PCP - General 11/12/15 10/15/22 Cheryl Basilio MD [address] [place] [address] [address] [place] [address] PCP - General Internal Medicine 10/16/22 Environmental Consultant Relationship Specialty Start Date End Date Leanne Perales MD 25 [place] [address] PCP - General 11/12/15 10/15/22 Cheryl Basilio MD [address] [place] [address] [address] [place] [address] PCP - General Internal Medicine 10/16/22 Environmental Consultant Relationship Specialty Start Date End Date Cheryl Basilio MD [address] [place] [address] [address] [place] [address] PCP - General Internal Medicine 10/16/22 Environmental Consultant Relationship Specialty Start Date End Date Cheryl Basilio MD [address] [facility] [address] [place] [address] PCP - General Internal Medicine 10/16/22 Environmental Consultant Relationship Specialty Start Date End Date Cheryl Basilio MD [address] [facility] [address] [place] [address] PCP - General Internal Medicine 10/16/22 Environmental Consultant Relationship Specialty Start Date End Date Cheryl Basilio MD [address] [facility] [address] [place] [address] PCP - General Internal Medicine 10/16/22 Environmental Consultant Relationship Specialty Start Date End Date Cheryl Basilio MD [address] [facility] [address] [place] [address] PCP - General Internal Medicine 10/16/22 Environmental Consultant Relationship Specialty Start Date End Date Cheryl Basilio MD [address] [facility] [address] [place] [address] PCP - General Internal Medicine 10/16/22 Environmental Consultant Relationship Specialty Start Date End Date Cheryl Basilio MD [address] [facility] [address] [place] [address] PCP - General Internal Medicine 10/16/22 Environmental Consultant Relationship Specialty Start Date End Date Cheryl Basilio MD [address] [facility] [address] [place] [address] PCP - General Internal Medicine 10/16/22 Environmental Consultant Relationship Specialty Start Date End Date Cheryl Basilio MD [address] [place] [address] 106 [place] [address] PCP - General Internal Medicine 10/16/22 Ziggy Arauz MD [address] [place] [address] Consulting Physician Vascular Surgery 12/10/22 Environmental Consultant Relationship Specialty Start Date End Date Cheryl Basilio MD [address] [place] [address] 106 [place] [address] PCP - General Internal Medicine 10/16/22 Ziggy Arauz MD [address] [place] [address] Consulting Physician Vascular Surgery 12/10/22 Environmental Consultant Relationship Specialty Start Date End Date Cheryl Basilio MD [address] [place] [address] PCP - General Internal Medicine 10/16/22 Ziggy Arauz MD [address] [place] [address] Consulting Physician Vascular Surgery 12/10/22 Environmental Consultant Relationship Specialty Start Date End Date Cheryl Basilio MD [address] [place] [address] [address] [place] [address] PCP - General Internal Medicine 10/16/22 Ziggy Arauz MD [address] [place] [address] Consulting Physician Vascular Surgery 12/10/22 Environmental Consultant Relationship Specialty Start Date End Date Cheryl Basilio MD [address] [place] [address] [address] [place] [address] PCP - General Internal Medicine 10/16/22 Ziggy Arauz MD [address] [place] [address] Consulting Physician Vascular Surgery 12/10/22 Environmental Consultant Relationship Specialty Start Date End Date Cheryl Basilio MD [address] [place] [address] [address] [place] [address] PCP - General Internal Medicine 10/16/22 Ziggy Arauz MD [address] [place] [address] Consulting Physician Vascular Surgery 12/10/22 Environmental Consultant Relationship Specialty Start Date End Date Cheryl Basilio MD [address] [place] [address] [address] [place] [address] PCP - General Internal Medicine 10/16/22 Ziggy Arauz MD [address] [place] [address] Consulting Physician Vascular Surgery 12/10/22 Environmental Consultant Relationship Specialty Start Date End Date Cheryl Basilio MD [address] [place] [address] [address] [place] [address] PCP - General Internal Medicine 10/16/22 Ziggy Arauz MD [address] [address] Consulting Physician Vascular Surgery 12/10/22 Environmental Consultant Relationship Specialty Start Date End Date Cheryl Basilio MD [address] [facility] [address] [place] [address] PCP - General Internal Medicine 10/16/22 Ziggy Arauz MD [address] [place] [address] Consulting Physician Vascular Surgery 12/10/22 Environmental Consultant Relationship Specialty Start Date End Date Cheryl Basilio MD [address] [facility] [address] [place] [address] PCP - General Internal Medicine 10/16/22 Ziggy Arauz MD [address] [place] [address] Consulting Physician Vascular Surgery 12/10/22 Environmental Consultant Relationship Specialty Start Date End Date Cheryl Basilio MD [address] [facility] [address] [place] [address] PCP - General Internal Medicine 10/16/22 Ziggy Arauz MD [address] [facility] [address] [place] [address] Consulting Physician Vascular Surgery 12/10/22 Environmental Consultant Relationship Specialty Start Date End Date Cheryl Basilio MD [address] [facility] [address] [place] [address] PCP - General Internal Medicine 10/16/22 Ziggy Arauz MD [address] [place] [address] Consulting Physician Vascular Surgery 12/10/22 Environmental Consultant Relationship Specialty Start Date End Date Cheryl Basilio MD [address] [facility] [address] [place] [address] PCP - General Internal Medicine 10/16/22 Ziggy Arauz MD [address] [place] [address] Consulting Physician Vascular Surgery 12/10/22 Environmental Consultant Relationship Specialty Start Date End Date Cheryl Basilio MD [address] [place] [address] [address] [place] [address] PCP - General Internal Medicine 10/16/22 Ziggy Arauz MD [address] [place] [address] Consulting Physician Vascular Surgery 12/10/22 Environmental Consultant Relationship Specialty Start Date End Date Cheryl Basilio MD [address] [place] [address] [address] [place] [address] PCP - General Internal Medicine 10/16/22 Ziggy Arauz MD [address] [place] [address] Consulting Physician Vascular Surgery 12/10/22 Environmental Consultant Relationship Specialty Start Date End Date Cheryl Basilio MD [address] [place] [address] [address] [place] [address] PCP - General Internal Medicine 10/16/22 Ziggy Arauz MD [address] [place] [address] Consulting Physician Vascular Surgery 12/10/22 Environmental Consultant Relationship Specialty Start Date End Date Cheryl Basilio MD PCP - General Internal Medicine 10/16/22 Ziggy Arauz MD [address] [place] [address] Consulting Physician Vascular Surgery 12/10/22 Environmental Consultant Relationship Specialty Start Date End Date Cheryl Basilio MD [address] [place] [address] PCP - General Internal Medicine 04/30/23 Ziggy Arauz MD [address] [place] [address] Consulting Physician Vascular Surgery 12/10/22 Team Status: Inactive Member Role Status Dates EDMUND Mercedes Attending Provider Active Sanjana Hael NP-C Primary Care Provider, Referring Provider Active [...] Provid er, Attending Provider, Referring Provider Active Environmental Consultant Relationship Specialty Start Date End Date Silvestre Sexton [address] [place] [phone] PCP - General Internal Medicine 07/31/23 Ziggy Arauz MD [address] [place] [address] Consulting Physician Vascular Surgery 12/10/22 Environmental Consultant Relationship Specialty Start Date End Date Silvestre Sexton [address] [place] [phone] PCP - General Internal Medicine 07/31/23 Ziggy Arauz MD [address] [facility] [address] [place] [address] Consulting Physician Vascular Surgery 12/10/22 Environmental Consultant Relationship Specialty Start Date End Date Silvestre Sexton [address] [place] [phone] PCP - General Internal Medicine 07/31/23 Ziggy Arauz MD [address] [facility] [address] [place] [address] Consulting Physician Vascular Surgery 12/10/22 Environmental Consultant Relationship Specialty Start Date End Date Leanne Perales MD [address] [place] [address] PCP - General 11/12/15 Environmental Consultant Relationship Specialty Start Date End Date Leanne Perales MD [address] [place] [address] PCP - General 11/12/15 Environmental Consultant Relationship Specialty Start Date End Date Leanne ePrales MD [address] [place] [address] PCP - General 11/12/15 Environmental Consultant Relationship Specialty Start Date End Date Leanne Perales MD [address] [place] [address] PCP - General 11/12/15 Environmental Consultant Relationship Specialty Start Date End Date Leanne Perales MD [address] [place], [place] [address], [place] [address] PCP - General 11/12/15 Environmental Consultant Relationship Specialty Start Date End Date Leanne Perales MD [address] [place], [place] [address] [address] PCP - General 11/12/15 Environmental Consultant Relationship Specialty Start Date End Date Leanne Perales MD [address] [place] [address] PCP - General 11/12/15 Environmental Consultant Relationship Specialty Start Date End Date Leanne Perales MD [address] [place] [address] PCP - General 11/12/15 Environmental Consultant Relationship Specialty Start Date End Date Leanne Perales MD [address] [place] [address] PCP - General 11/12/15 Team Status: Active Member Role Status Dates Dr. Justice Bailey , Primary Care Provider Active Team Status: Inactive Member Role Status Dates Sanjana Hale GREASE BUFFER-C Primary Care Provider Active Start: February 25, 2024 End: February 25, 2024 Sanjana Hale GREASE BUFFER-C Referring Provider Active S tart: February 25, 2024 End: February 25, 2024 David SHAFFER, PA Attending Provider Active Start: February 25, 2024 End: February 25, 2024 Team Status: Inactive Member Role Status Dates Sanjana Hale GREASE BUFFER-C Primary Care Provider Active Start: March 18, 2024 End: March 18, 2024 Sanjana Hale GREASE BUFFER-C Referring Provider Active S tart: March 18, 2024 End: March 18, 2024 EDMUND Jovel Attending Provider Active Star t: March 18, 2024 End: March 18, 2024 Team Status: Inactive Member Role Status Dates Sanjana Hale GREASE BUFFER-C Referring Provider Active S tart: March 31, [...] 2024 End: October 09, 2024 Xiomara Johnston GREASE BUFFER-C Attending Provider Active Start: October 09, 2024 End: October 09, 2024 Xiomara Johnston GREASE BUFFER-C Referring Provider Active Start: October 09, 2024 [...] 03, 2024 Dr. Ludy Luque [facility] Active Start: October 03, 2024 [...] November 09, 2024 End: November 09, 2024 EDUMND Almanza Attending physician Active Sta rt: November [...] pelvis w contrast Leanne Perales MD [address] [facility] [place] [address] Referral ID Status Reason Start Date Expiration Date V isits Requested Visits Authorized [id number] Authorized 08/29/2022 02/25/2023 1 1 Reason Comments COPD Reason Comments New Patient Est care Reason Comments Leg Pain Reason Onset Date Comments ER Follow-up 10/15/2022 Reason Comments Leg Pain Specialty Diagnoses / Procedures Referred By Contac t Referred To Contact Diagnoses Ambulatory dysfunction Acute deep vein thrombosis (DVT) of left lower extremity, unspecified vein (HCC) Procedures . Yared Allison MD [address] [facility] [address] [place] [address] [facility] Telemetry [address] [place] [address] Referral ID Status Reason Start Date Expiration Date Visits Re quested Visits Authorized [id number] 1 1 Reason Onset Date Comments Med [...] venous duplex bilateral Cheryl Basilio MD [address] [facility] [address] [place] [address] [facility] Cardiology [address] [place] [address] Referral ID Status Reason Start Date Expiration Date Visits Re quested Visits Authorized [id number] Closed 11/14/2022 05/13/2023 1 1 Reason Onset [...] US IVC iliac vein duplex complete Ziggy rAauz MD [address] [place] [address] Referral ID Status Reason Start Date Expiration Date Visits Re quested Visits Authorized [id number] Closed 12/10/2022 06/08/2023 1 1 Reason Onset [...] of unspecified iliac vein (HCC) [I82.529] Procedures OK PRQ TRANSLUMINAL MECHANICAL THROMBECTOMY VEIN OK OPEN/PERQ PLACEMENT INTRAVASCULAR STENT SAME 1ST LEFT ILIOFEMORAL DEEP VEIN THROMBOSIS, THROMBECTOMY AND STENTING TRANSCATHETER PLACEMENT OF AN INTRAVASCULAR STENT(S), OPEN OR PERCUTANEOUS INITIAL VEIN Ziggy Arauz MD [address] [place] [address] [address] [place] [address] Referral ID Status Reason Start Date Expiration Date Visits Re quested Visits Authorized [id number] 1 1 Reason Comments Post-op Problem Surgery [...] IV contrast Rocio Calix MD [address] [facility] [address] [place] [address] Referral ID Status Reason Start Date Expiration Date Visits Re quested Visits Authorized [id number] Closed 07/31/2023 07/30/2024 1 1 Reason Comments [...] (Synthroid, Levoxyl) 100 MCG tablet [id number] - [place], [place] - [facility] [address] Pt leaving to go [...] 1 dose 2319 (New Bag - Provider: Feilcia Hoff RN) 0002 (Stopped - Provider: Felicia [...] this does not improve please contact your ed case manager [phone] (Due)2200 (Due) famotidine (Pepcid) tablet 20 [...] does not have iv access. 0854 ([facility] - Prov ider: Disha Chen RN) PRN [...] on Sat12/25/22 at 1402, Intraprocedure 1402 ([facility] - [facility] ider: Ziggy Arauz MD) labetalol (Normodyne,Trandate) [...] section and content) DATE CREATED AUTHOR 12/01/[address] [facility] [employer] DATE CREATED AUTHOR AUTHOR'S ORGANIZ ATION 12/07/[address] [facility] [employer] DATE CREATED AUTHOR AUTHOR'S ORGANIZ ATION 09/28/2022 [facility] ([place]) DATE CREATED AUTHOR AUTHOR'S ORGANIZ ATION 11/26/[address] [facility] [employer] [facility] DATE CREATED AUTHOR AUTHOR'S ORGANIZ ATION 04/27/2024 [facility] DATE CREATED AUTHOR AUTHOR'S ORGANIZ ATION 12/20/[address] [facility] Ordered Prescriptions (unrec ognized section and [...] BE BASED ON THE PRIMARY CLINICAL RECORDS. [facility]. provides no warranty or guarantee of the accuracy or completeness of information in this document.
== END | disposition home or self-care (01) ==
LOC: CT 12:06
PROVIDERS: PCP Family Medicine; Referring Provider Nurse Practitioner Family; Visit Provider Nurse Practitioner Family
DX: R10.9 Unspecified abdominal pain (principal)
CPT/HCPCS: 74177; Q9967